=== PATIENT | female | born 1950 | race Caucasian/White ===

== ENCOUNTER → 2022-11-10 | Outpatient (CLI) | payer MEDICARE, SELFPAY ==
--- NOTE | 2022-11-10 13:30 | CT_ITS ---
STUDY: CT RIGHTLOWER EXTREMITY WITHOUT CONTRAST REASON FOR EXAM: Female, 72 years old. OA OF R HIP -- MIN RIGHT HIP RADIATION DOSAGE (If Supplied By Facility): CTDIvol = ( 14.07 ) mGy, DLP = ( 787.14 ) mGycm TECHNIQUE: Thin section transaxial imaging of the ankle was obtained, with sagittal and coronal reconstructed images. Individualized dose optimization techniques were used for this CT. COMPARISON: None. Hip findings: 1. The right hip joint is severely narrowed with xtti-go-[id number] contact and significant subchondral cystic and mixed sclerotic changes on both sides of the articulation. There is also slight remodeling of the proximal aspect of the acetabulum. 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 Normal visualized superior and inferior pubic rami and ischial tuberosities. Patchy sclerosis of the bilateral SI joints with narrowing and intra-articular gas is consistent with inflammatory and degenerative osteoarthritis. Normal superior and inferior pubic rami. There is narrowing of the pubic symphysis with spurring. Normal ischial tuberosity. There is tendinosis of the origins of the hamstring tendons arising from the ischial tuberosity. Rectosigmoid diverticulosis is present. Postsurgical scarring is present in the anterior pelvic wall including numerous calcifications at the scar site. Knee findings: There is moderate to severe narrowing in the medial compartments of both knees. Mild narrowing and cortical osteophyte formation is present in the bilateral lateral compartments of the knee joints. Moderate cortical osteophyte formation is present periphery of the medial compartments of both knees. Tiny knee joint effusions are present. There is no evidence of a fracture. Atherosclerotic calcifications noted. The quadriceps and patellar tendons are grossly intact. Mild subcutaneous edema is present. Moderate to severe degenerative narrowing and related changes seen in the lower lumbar spine. Remodeling of the superior endplate of S1 related to a moderate size Schmorl''s node. CT/Extremity Lower without Contra IMPRESSION: 1. Severe DJD of the right hip and right femoral head avascular necrosis with subchondral collapse Electronically Signed: Sean Ann MD at 9:42 EST ,
== END | disposition home or self-care (01) ==
LOC: CT 12:55
PROVIDERS: PCP Family Medicine; Referring Provider Student in an Organized Health Care Education/Training Program; Visit Provider Student in an Organized Health Care Education/Training Program
DX: M16.11 Unilateral primary osteoarthritis, right hip (principal); M87.051 Idiopathic aseptic necrosis of right femur; K57.90 Diverticulosis of intestine, part unspecified, without perforation or abscess without bleeding; M48.061 Spinal stenosis, lumbar region without neurogenic claudication; M25.469 Effusion, unspecified knee; M21.751 Unequal limb length (acquired), right femur; M25.551 Pain in right hip
CPT/HCPCS: 73700

== ENCOUNTER → 2022-11-13 | Outpatient (CLI) | payer MEDICARE, SELFPAY ==
--- NOTE | 2022-11-13 11:16 | ECHOD_ITS ---
Reason For Study: Murmur, Pre-op right hip surgery Procedure This was a 2D Doppler, Color Flow transthoracic echocardiogram. The study was technically difficult. Exam performed in department. Left Ventricle Normal LV size. Left ventricular systolic function is normal. The estimated ejection fraction is 65 %. Stage 2 diastolic dysfunction. No regional wall motion abnormalities noted. Right Ventricle Normal RV size. Normal systolic function. Atria The left atrium is mildly enlarged. Normal right atrium. No doppler evidence for ASD. Mitral Valve There is no mitral annular calcification. Mild focal mitral valve calcification, bileaflet. The mitral valve chordae are thickened and/or calcified. Mild-Moderate (1-2+) mitral valve insufficiency. Tricuspid Valve Normal tricuspid valve. Trivial tricuspid valve insufficiency. Unable to estimate RV systolic pressure/pulmonary artery pressure due to technically difficult study. Aortic Valve Trisinus/trileaflet aortic valve. Mild diffuse aortic valve calcification. Mild aortic stenosis. Pulmonic Valve The pulmonic valve is not well visualized. Great Vessels Normal sized aortic root. Pericardium/Pleural No pericardial effusion. MMode/2D Measurements & Calculations LVIDd: 4.7 cm IVSd: 1.3 cm LVOT diam: 2.1 cm LVIDs: 2.5 cm LVPWd: 1.3 cm LVOT area: 3.4 cm2 RVDd: 3.3 cm FS: 46.3 % Ao root diam: 3.3 cm LAV(MOD-bp): 72.6 ml LA A4 area: 21.7 cm2 LAV(MOD-bp) Indexed: 35.9 ml/m2 LAV(MOD-sp2): 70.6 ml LAV(MOD-sp4): 62.0 ml LA dimension(2D): 4.6 cm RA A4 area: 10.6 cm2 Time Measurements MV dec time: 0.25 sec Doppler Measurements & Calculations MV E max fermín: 120.3 cm/sec Lat Peak E' Fermín: 6.2 cm/sec Med Peak E' Fermín: 7.8 cm/sec MV A max fermín: 110.9 cm/sec E/E' lat: 19.3 E/E' med: 15.5 MV E/A: 1.1 MV dec slope: 486.0 cm/sec2 Ao V2 max: 231.2 cm/sec LV V1 max: 123.7 cm/sec Ao max P.5 mmHg LV V1 max P.1 mmHg Ao V2 mean: 162.5 cm/sec LV V1 mean P.5 mmHg Ao mean P.7 mmHg LV V1 mean: 88.6 cm/sec Ao V2 VTI: 55.7 cm LV V1 VTI: 31.7 cm AV (velocity ratio): 0.57 SUNIL(I,D): 1.9 cm2 SUNIL(V,D): 1.8 cm2 SV(LVOT): 106.9 ml PA V2 max: 121.4 cm/sec ECHO/Echo Complete Interpretation Summary The study was technically difficult. Left ventricular systolic function is normal. The estimated ejection fraction is 65 %. The left atrium is mildly enlarged. Mild focal mitral valve calcification, bileaflet. The mitral valve chordae are thickened and/or calcified. Mild-Moderate (1-2+) mitral valve insufficiency. Trivial tricuspid valve insufficiency. Mild aortic stenosis. Unable to estimate RV systolic pressure/pulmonary artery pressure due to techni faraz difficult study. Stage 2 diastolic dysfunction. Ordering Physician: Jad Simon Referring Physician: Jad Simon Performed By: Gaye Rodgers RDCS
== END | disposition home or self-care (01) ==
LOC: CVS 10:51
PROVIDERS: PCP Family Medicine; Referring Provider Family Medicine; Visit Provider Family Medicine
DX: R01.1 Cardiac murmur, unspecified (principal); I50.30 Unspecified diastolic (congestive) heart failure; I34.0 Nonrheumatic mitral (valve) insufficiency; I07.1 Rheumatic tricuspid insufficiency; I35.0 Nonrheumatic aortic (valve) stenosis
CPT/HCPCS: 93306

== ENCOUNTER 2022-11-19 14:56 | Observation (INO) | payer MEDICARE, SELFPAY ==
[2022-11-10 15:00] LABS: Absolute Lymphocyte Count 1.37 X10^3/uL (0.83-4.51); Absolute Neutrophil Count 7.6 X10^3/uL (2.0-7.7); Basophil# 0.03 X10^3/uL; Basophil% 0.3 % (0-1); Eosinophil# 0.11 X10^3/uL; Eosinophils% 1.1 % (0-5); Hematocrit 39.6 % (37-47); Lymphocyte # 1.37 X10^3/ul (0.83-4.51); Lymphocyte % 14.2 % (19-41); Mean Corp Hgb Conc 30.3 g/dL (32-36); Mean Corpuscular Hgb 28.6 pg (27.0-32.0); Mean Corpuscular Volume 94.3 fL (81-99); Mean Platelet Vol. 9.1 fl (6.2-12.0); Monocyte# 0.53 X10^3/uL; Monocyte% 5.5 % (0-10); NRBC Flagged by Analyzer 0 % (0-5); Neutrophil # 7.61 X10^3/uL (2.7-7.7); Neutrophil % 78.6 % (47-70); Platelet Count 325 K/mm3 (150-450); RBC Distribution Width CV 13.8 % (11.6-14.6); RBC Distribution Width SD 47.3 fl (35.1-43.9); White Blood Count 9.7 K/mm3 (4.4-11.0)
[2022-11-10 15:46] LABS: Anion Gap 5 (5-15); BUN 23 mg/dL (7-18); Calcium,Total 9.3 mg/dL (8.5-10.1); Chloride 107 mmol/L (98-107); EST Glomerular Filtration Rate 58 mL/min (>60); Est Glom Filt Rate - Afr Amer 70 mL/min (>60); Glucose 150 mg/dL (74-106); Sodium Level 140 mmol/L (136-145)
[2022-11-10 16:02] LABS: Magnesium 1.8 mg/dL (1.6-2.6); Thyroid Stim Hormone (TSH) 1.63 uIU/mL (0.358-3.74)
[2022-11-10 16:11] LABS: Hemoglobin A1c 6.9 % (3.8-5.6)
[2022-11-19] VITALS (13 sets, daily range): BP systolic 115–168; BP diastolic 48–69; PULSE 59–85; RESP 9–18; TEMP 36–36.8; O2SAT 95–100; BMI 45.5
--- NOTE | 2022-11-19 | HIP_PTH ---
PATIENT: MISAEL MEDINA LOC: MS3 U#:[id number] AGE/SX: 72/F ROOM: [facility] [place] RE11/19/[address]: Dr. Milton Love DO : 1950 BED: 1 DIS: 11/20/2022 SPEC #: [id number] RECD: 11/19/22 15:35 STATUS: BHUPENDRA REQ #: [id number] EZIO: 11/19/22 00:[address]: Milton Love DEPT: SURGICAL PATHOLOGY RECD BY: Jorge De La Vega ENTERED: 11/20/22 10:35 SP TYPE: TOTAL HIP OTHR DR: MD Dr. Anai Medina DO Tissues: Hip, NOS Procedures: Decalcification bone/plaque Surgery Specimen Level IV HEADER OPERATION: ERAS, total hip replacement robotic arm assist PRE-OP DIAGNOSIS: Grade IV osteoarthritis TISSUE SUBMITTED: Bone right hip MICROSCOPIC DIAGNOSIS Bone and tissue of right hip, total hip resection: Severe degenerative joint disease. AM:ирина 11/25/2022 MICROSCOPIC DESCRIPTION Slides are reviewed. GROSS DESCRIPTION Received is one container labeled with the patient's name and designated bone of right hip. The specimen consists of a deformed femoral head measuring 5 x 4.5 x 4 cm. The articular surface displays prominent osteophyte formation, eburnation and bone erosion. Also present in the specimen container are multiple irregular fragments of bone reamings, soft tissue and bone fragments aggregating to 9 x 7 x 2 cm. Data Security Coordinator sections are submitted in two cassettes as follows: 1 - soft tissue and bone reamings, 2 - bone after decalcification. / AM:ирина 11/20/2022 TC:5 CPT: 43838, 72452
[2022-11-19] MEDS: Magnesium 2 GM for ERAS IV (10:05)
[2022-11-19] MEDS: Lactated Ringers 1,000 ML 999 ML IV ×2 (10:05→15:26)
[2022-11-19] MEDS: Celecoxib 200 MG Capsule 400 MG PO (10:13)
[2022-11-19] MEDS: Gabapentin 600 MG Tablet PO (10:13)
[2022-11-19] MEDS: Acetaminophen 500 MG Tablet 1000 MG PO ×2 (10:13→21:48)
[2022-11-19 11:10] LABS: Bedside Glucose 198 mg/dL (74-106)
[2022-11-19] MEDS: Cefazolin 2 GM in 0.9% Normal Saline 100 ML IV (12:13)
[2022-11-19] MEDS: TXA 1000mg in NS100 100ml (IVPB at Incision) 660 MG IV (12:20)
[2022-11-19] MEDS: dexAMETHasone 10 MG/ML Vial IV (12:20)
[2022-11-19] MEDS: TXA 1000mg in NS100 100ml (IVPB at Closure) 660 MG IV (14:14)
[2022-11-19] MEDS: Lactated Ringers 1,000 ML 125 ML IV ×2 (14:50→16:30)
--- NOTE | 2022-11-19 15:21 | PCM.PN.HOSP ---
Subjective Subjective Noreen Chicas is a 72-year-old white female who presented to [facility] on 11/19/2022 for an elective right total hip replacement. Patient had evidently had some pain in his hip for approximately 6 years and had been progressively worsening. She was having pain in her groin and into her right quad reporting increased pain with ambulating. She has required the use of a wheelchair and reported that if she stands she feels a popping sensation in her hip. She is had multiple conservative interventions including chiropractic therapy and physical therapy both of which were not helpful. We have been consulted postoperatively for medical management Patient was seen up on the medical floor after returning there from PACU. Patient is feeling well sitting up in a bedside commode getting ready to get back to the bed. Ate dinner in PACU. Denies any pain at this time. Was surprised how well she did getting to the bedside commode. Hoping to be able to go home tomorrow as currently planned. Objective Data Objective Data Vital Signs: Vital Signs Temp Pulse Resp BP Pulse Ox O2 Del Method 98.3 F 79 16 115/58 L 95 Room Air 11/19/22 15:04 11/19/22 15:04 11/19/22 15:04 11/19/22 15:04 11/19/22 15:04 11/19/22 15:04 Oxygen Delivery Method Room Air Weight: 109.3 kg Body Mass Index (BMI) 45.5 Intake & Output: Intake and Output for Last 24 Hours 11/17/22 11/18/22 11/19/22 23:59 23:59 23:59 Intake Total 1434 / 1434 Balance 1434 / 1434 Lab / Micro Data Result Diagrams: 11/10/22 13:44 11/10/22 13:44 Labs: Laboratory Results - last 24 hr 11/19/22 09:55: POC Glucose 198 H Micro: Microbiology 11/10/22 13:44 Swab (Method) Nasal Screen MRSA/MSSA - Final Physical Exam Const alert, oriented x3 and no apparent distress Constitutional Narrative: Morbidly obese, white female, sitting up in a bedside commode, at bedside, patient appears comfortable nontoxic, getting ready to get back to bed Resp normal respiratory effort, no retractions, no use of accessory muscles and clear to auscultation bilaterally Auscultation: Negative for crackles, rhonchi or wheezes Cardio regular rate, regular rhythm, S1 normal heart sound, S2 normal heart sound, no rub, no gallops and no clicks; Negative for no murmurs Cardio Narrative: 2 out of 6 systolic murmur loudest at right upper sternal border GI normal to inspection, nondistended, normoactive bowel sounds, soft to palpation and non-tender Extremity no clubbing, cyanosis or edema Extremity Narrative: Postoperative dressing noted is peeling off proximally and laterally-nursing aware and plans to redress, no ecchymosis or significant swelling noted at this time, pedal pulses are 2+ Neuro oriented x3, CN's II-XII intact bilaterally and no focal motor deficits Speech: speech normal Psych affect normal Psych Narrative: Very pleasant and appropriately interactive Assessment & Plan Assessment/Plan (1) Osteoarthritis of right hip: PLAN: Plan Osteoarthritis of the right hip -Postop day 0 total hip arthroplasty -Management per primary service -Pain medication as ordered -Recommend bowel regimen -Weightbearing as tolerated -Silver dressing for 5 days postoperatively -PT/OT consultation DM-2 -Most recent hemoglobin A1c was 6.9 -Hold home oral agents while hospitalized including glipizide, metformin, Actos -Moderate high-dose sliding scale -Accu-Cheks 3 times daily with meals -Restart oral medications upon discharge Hyperlipidemia -Continue home atorvastatin Hypertension -Continue home BRETT inhibitor with therapeutic substitution -Continue home amlodipine 10 mg daily Morbid obesity -BMI is 45.5 -Recommend weight loss -Complicates treatment, prognosis, outcomes Stage II diastolic dysfunction -Noted on most recent echo performed on 11/13/2022 -Blood pressure control Mild aortic stenosis -No current concerns -Mild murmur noted on exam -Recommend continued outpatient follow-up DVT prophylaxis -Per primary service Thank you for this postoperative consultation. Patient appears to be clinically stable in the postoperative period and we will sign off at this time. Please not hesitate to contact us or reconsult if there are any concerns or questions that develop. Charges/Coding Visit Charges Inpatient E&M: 07348 Subs Hosp L2
--- NOTE | 2022-11-19 15:35 | RAD_ITS ---
EXAM: XR RIGHT HIP WITH PELVIS WHEN PERFORMED, 2 OR 3 VIEWS CLINICAL INDICATION: Post Op -- AP both hips on single elba/lateral of op hip PACU TECHNIQUE: Two or three views of the right hip with pelvis when performed. This report was created using [employer] report generation technology. COMPARISON: None. FINDINGS: BONES/JOINTS: There is a total right hip prosthesis in anatomic alignment. There is no evidence of loosening. No displaced fracture. No destructive or sclerotic lesions. Note that overlapping bowel shadows may however obscure fine detail. Sacroiliac joint is unremarkable. No widening of the pubic symphysis. SOFT TISSUES: Unremarkable. No soft tissue swelling or gas. RAD/Hip Min 2 Views (Portable) IMPRESSION: Right hip prosthesis in anatomic alignment. There are no acute osseous abnormalities. Electronically Signed: Fausto Esquivel MD at 16:55 EST ,
--- NOTE | 2022-11-19 16:06 | OP.PCM_ITS ---
Report of Operation Date of Procedure: 11/19/22 Description of Surgical Findings:: Preoperative diagnosis: Right hip primary osteoarthritis Postoperative diagnosis: Right hip primary osteoarthritis Procedure: Robotic assisted right total hip arthroplasty Surgeon: Milton Love DO Financial Legal Assistant: CELIA Osei Anesthesia: Spinal with sedation Market Maker: Ho Stewart CRNA Complications: None apparent Drains: None Estimated blood loss: 250 cc Urinary output: none recorded IV fluids: 1800 cc crystalloid Specimens: Femoral head resection Surgical implants: Fostoria Accolade two 132 degree neck angle hip stem size #4, Biolox delta ceramic V 40 femoral head 36 mm outer diameter +7.5 mm neck length, Fostoria Trident X3 10 degree polyethylene insert, Trident 2 TriTanium cluster hole acetabular shell 52 mm diameter Indications: This is an 72-year-old female seen in the outpatient setting for right hip pain. X-rays revealed severe right hip osteoarthritis. She failed oral [id number]-[id number] analgesics including NSAIDs and Tylenol, activity modification. She was becoming increasingly less ambulatory requiring a wheelchair. I recommended surgical intervention the form of right total hip arthroplasty. I reviewed the procedure with the patient, its risk, benefits, alternatives. Risks included but were not limited to bleeding, infection, loss of life or limb, risk of anesthesia, neurovascular injury, persistent pain, instability, need for additional surgery, failure of orthopedic hardware, loosening, osteolysis, need for assistive devices long-term, leg length discrepancy. Patient expressed understanding wish to proceed with surgery. Description of procedure: I greeted the patient in same-day surgery holding area the day of surgery. She was identified by name, medical record number, and date of . All questions were answered to patient satisfaction. The operative extremity was marked with a surgical marker. Informed consent was confirmed with the patient. At time of her procedure, patient brought the operative suite and positioned in the seated position for a spinal anesthetic. After achieving spinal anesthesia, patient was then positioned supine on a standard operating table. Gentle MAC anesthesia was administered. Patient was then positioned in a lateral decubitus position with the right side up. An axillary roll was placed under the patient's left axilla. The left fibular head was free. We then prepped and draped the right lower extremity in normal, sterile orthopedic fashion. Prior to the procedure, the Mateusz plan was reviewed and appeared appropriate based on the patient's CT scan and anatomy. We performed a timeout with all parties in attendance in agreement with the side, site, and operation to be performed. No concerns were voiced and would like to proceed. 1 g TXA IV as well as 2 g Ancef was administered prior to the incision by anesthesia staff. 1 g TXA IV was administered at time of closure additionally. I first elected to place our pelvic array with a curvilinear incision over the iliac crest just posterior to the ASIS. I bluntly dissected down the level of the periosteum. I then drilled 3 intracortical pins with excellent cortical purchase. Pelvic array was then assembled and positioned appropriately. I then turned my attention to the hip. A standard posterior lateral incision was made curvilinear over the posterior lateral hip, centered on the tip of the greater trochanter. Full-thickness skin incision was made, approximately 15 cm in length. I sharply dissected down the level of the fascia melchor. Fascia melchor was then incised in line with the incision. I bluntly dissected through the raphae of the gluteus jack. Femoral checkpoint was placed at this point. We then registered her femoral anatomy prior to dislocating the hip. I then internally rotated the hip. Limited gluteal bursectomy was performed to identify the short external rotators. A Cobra retractor was placed in his gluteus medius. Short external rotators were taken down with Bovie cautery and tagged for later repair with #2 Ethibond suture. This identified the underlying capsule. A L-shaped shaped capsulotomy was made over the femoral neck carried posteriorly to the acetabular labrum. Labrum was released and the hip was dislocated. I then marked a standard femoral neck cut 1 fingerbreadth above the lesser trochanter. Sagittal saw was used to carefully cut the femoral neck. Femoral head was removed and examined and appeared benign. It was sent to pathology per hospital policy. I then turned my attention to the acetabulum. Cobra retractors were placed anterior and posteriorly. Self-retaining retractor was placed superiorly. Acetabular labrum was excised with a long handled knife. Acetabular pulvinar was excised with Bovie cautery. Hemostasis was excellent at this point. I then registered the acetabulum with the [employer] robot successfully. I medialized with a 46 mm reamer. I then brought in the Mateusz robot with the acetabular reaming arm to a size 52. This was reamed and the planned position to the planned depth. Reamer was then removed. There was excellent bleeding bone at the base and excellent remaining anterior posterior ochoa of the acetabulum. 52 mm acetabular component was selected for and attached to the bolt cutter arm of the robot. I placed the acetabular component near planned position before attaching to the robot. The robot then held the cuff in position while I impacted it to an appropriate depth. The acetabular cup was then removed from the robotic arm. It had excellent rim fit. I then selected a 10 degree posterior lipped liner and impacted this per overhead crane operator recommendations. I then turned my attention to the femur. Box chisel was then utilized to gain access to the femoral canal. Canal finder was placed. Sequential broaches were used and press-fit manner. A final size 4 achieved excellent vertical and rotational stability. We then trialed with a 132 degree hip stem as templated. A +5 and +7.5 mm neck length were trialed. The +7. 5 mm neck achieved greater stability as well as allowed some lengthening of the limb, which was desired given her contralateral hip osteoarthritis. Trials were then removed. We copiously irrigated the wound with normal saline solution, Betadine solution, and irrisept solution. A size 4 stem was then impacted with excellent fixation. Final head was then impacted over clean, dry Carrillo taper neck. Final reduction was performed. A posterior capsular repair was performed with #2 Ethibond suture and bone tunnels, as well as the short external rotator repair. Femoral checkpoint was removed. Pelvic array pins were removed. IT band was closed watertight with #1 strata fix suture. Deeper fascial layers were closed with #1 and 0 Vicryl suture in interrupted fashion. Subcutaneous layers were reapproximated with 2-0 Vicryl suture and skin reapproximated with running subcuticular 3-0 strata fix and skin glue. Pelvic array incision was closed with buried 2-0 Vicryl suture and skin glue.. A silver dressing was applied. Patient tolerated procedure well without complication. She was positioned back in the supine position on his hospital bed. He was transferred to PACU in stable condition. A pillow was placed between the patient's leg to be present while she is in bed. Post Operative Plan: Patient will be placed in observation overnight given her multiple comorbidities and advanced age. Plan for discharge to home likely tomorrow. Weightbearing: Weightbearing as tolerated right lower extremity, posterior hip precautions. Pillows between legs while in bed Antibiotics: Ancef 1 g every 8 hours x 3 doses DVT Prophylaxis: Aspirin 81 mg twice daily to start tomorrow [place]wood: None Dressing: Maintain silver dressing x 5 days X-Rays: PACU x-rays were reviewed demonstrated well-positioned right total hip arthroplasty implant. Follow-up 2-week x-rays in the office. Follow-up: 2 weeks in my office as scheduled
[2022-11-19] MEDS: Insulin Lispro 100 UNIT/ML INSULN.PEN SC (16:31)
[2022-11-19 16:40] LABS: Bedside Glucose 185 mg/dL (74-106)
--- NOTE | 2022-11-19 19:00 | NURSING ---
Emergency Documentation
[2022-11-19 19:51] LABS: Bedside Glucose 264 mg/dL (74-106)
[2022-11-19] MEDS: Cefazolin 1 GM/50 ML BAG IV (21:47)
[2022-11-19] MEDS: Atorvastatin Calcium 10 MG Tablet PO (21:48)
[2022-11-19] MEDS: Senna/Docusate Sodium 1 Tablet 2 TABLET PO (21:49)
[2022-11-20 05:00] VITALS: BP 159/63; PULSE 70; RESP 18; TEMP 36.6; O2SAT 95
[2022-11-20] MEDS: Cefazolin 1 GM/50 ML BAG IV (05:02)
[2022-11-20] MEDS: Acetaminophen 500 MG Tablet 1000 MG PO ×2 (05:03→13:40)
[2022-11-20] MEDS: Levothyroxine 100 MCG Tablet PO (05:03)
[2022-11-20 06:02] LABS: Hematocrit 30.4 % (37-47); Hemoglobin 9.8 g/dL (12.0-15.0); Mean Corp Hgb Conc 32.2 g/dL (32-36); Mean Platelet Vol. 8.6 fl (6.2-12.0); Platelet Count 266 K/mm3 (150-450); RBC Distribution Width CV 13.3 % (11.6-14.6); RBC Distribution Width SD 45.5 fl (35.1-43.9); Red Blood Count 3.27 M/mm3 (4.2-5.4); White Blood Count 13.4 K/mm3 (4.4-11.0)
[2022-11-20 06:45] LABS: Anion Gap 6 (5-15); BUN 19 mg/dL (7-18); BUN/Creat Ratio 16.7 RATIO (10-20); Calcium,Total 8.7 mg/dL (8.5-10.1); Chloride 106 mmol/L (98-107); Creatinine, Serum 1.14 mg/dL (0.55-1.02); EST Glomerular Filtration Rate 50 mL/min (>60); Est Glom Filt Rate - Afr Amer 60 mL/min (>60); Estimated Creatinine Clearance 33.66 ml/min; Glucose 251 mg/dL (74-106); Potassium 4.5 mmol/L (3.5-5.1); Sodium Level 137 mmol/L (136-145)
[2022-11-20] MEDS: Insulin Lispro 100 UNIT/ML INSULN.PEN SC ×2 (06:56→11:13)
[2022-11-20 07:30] LABS: Bedside Glucose 192 mg/dL (74-106)
[2022-11-20 07:37] VITALS: O2SAT 95
[2022-11-20] MEDS: Aspirin 81 MG TAB.CHEW PO (08:14)
[2022-11-20 08:19] VITALS: BP 143/74; PULSE 70; RESP 16; TEMP 36.9; O2SAT 100
[2022-11-20] MEDS: Senna/Docusate Sodium 1 Tablet 2 TABLET PO (09:36)
[2022-11-20] MEDS: Lisinopril 40 MG Tablet PO (09:36)
[2022-11-20] MEDS: Famotidine 20 MG Tablet PO (09:36)
[2022-11-20] MEDS: amLODIPine 10 MG Tablet PO (09:36)
--- NOTE | 2022-11-20 11:02 | CASEMGMT ---
SHON DILL Assessment: Face to Face with pt for initial transition planning/care coordination assessment. RN ANIYAH introduced self and role at [facility], pt voices understanding and consents to assessment. Pt is A/O x4 and answers all questions appropriately at this time. Pt sitting up in chair in no distress. Care providers, pharmacy, and demographics verified/updated. Admitting Dx: R total hip with armando PCP:[facility] Specialists:dewey Love Pharmacy: [facility] Insurance: [facility] Prescription Benefit: yes LNOK: Kd Pool, Living Arrangements: Pt lives with in a single story house with 3 steps to enter with a rail on both sides. Pt reports she is I in ADL's typically and denies concerns at home. Transportation: Pt has been transporting pt for the last 3 weeks and will continue until she can drive again. DME/HHC/SNF: Pt has a cane, crutches, FWW, w/c, walk in shower and shower chair at home. Pt denies hx of HHC or SNF stays. Pt states no concerns with going home at time of dc. She has outpt therapy set up at [facility] on Wednesday. Pt states no further concerns/needs. CM to follow. Advised pt to ask CM if any further question/concerns/needs arise, voices understanding. Pt Goal: Home with outpt therapy set up Plan: Home with outpt therapy set up
[2022-11-20 11:20] LABS: Bedside Glucose 247 mg/dL (74-106)
--- NOTE | 2022-11-20 12:35 | DCINST_ITS ---
Discharge Instructions Follow Up Care Test Results: Test results from this visit will be discussed in further detail at your follow- up appointment, if applicable. Discharge Plan Admission Admit Date/Time: 11/19/22 14:56 Primary Reason for Your Visit: Right hip replacement Attending Provider: Milton Love Primary Care Provider: Jad Simon Consulting Providers: Anai Nixon Instructions Additional Instructions / Restrictions: See preprinted instructions from your surgeons office. Discharge Orders/Prescriptions Prescriptions: No Action metformin 500 mg tablet extended release 24 hr 500 mg PO BID pioglitazone 30 mg tablet 30 mg PO DAILY quinapril 40 mg tablet 40 mg PO DAILY amlodipine 10 mg tablet 10 mg PO DAILY levothyroxine [Synthroid] 100 mcg tablet 100 mcg PO DAILY atorvastatin 10 mg tablet 10 mg PO QHS glipizide 2.5 mg tablet extended release 24hr 2.5 mg PO DAILY Referrals / Follow Up: Jad Simon MD [Primary Care Provider] - Milton Love DO [Med Staff - Active Staff] - Disposition Disposition (needs filled in before D/C Order can be placed): Home, Self Care
--- NOTE | 2022-11-20 12:35 | PCM.DC.SUM ---
Providers Date of Admission: 11/19/22 Primary Care Physician: Dr. Jad Simon MD Consultations 11/19/22 14:50 Consult: Hospitalist Routine Consulting Provider: Anai Nixon Reason for Consult: Post op right total hip medical management EMERGENT Consult: No MD Notified: Yes Date Notified: 11/19/22 Time Notified: 14:53 Method of Notification: Text Reason For Visit: RT TOTAL HIP W MIN Diagnosis Discharge Diagnosis (1) Osteoarthritis of right hip: Status: Acute Code(s): M16.11 - Unilateral primary osteoarthritis, right hip Plan: POD#1 s/p right total hip arthroplasty - Pain control - Medicine following for medical management - PT/OT - DVT PPX -aspirin 81 mg twice daily, TRENT Shine, early mobilization Plan for discharge home today with outpatient physical therapy follow-up. Medications at Discharge Home Medications amlodipine 10 mg tablet 10 mg PO DAILY 08/31/22 atorvastatin 10 mg tablet 10 mg PO QHS 08/31/22 glipizide 2.5 mg tablet, extended release 24 hr 2.5 mg PO DAILY 08/31/22 levothyroxine 100 mcg tablet (Synthroid) 100 mcg PO DAILY 08/31/22 metformin 500 mg tablet,extended release 24 hr 500 mg PO BID 08/31/22 pioglitazone 30 mg tablet 30 mg PO DAILY 08/31/22 quinapril 40 mg tablet 40 mg PO DAILY 08/31/22 acetaminophen 500 mg tablet 1,000 mg PO Q8 30 days #180 tabs 11/20/22 aspirin 81 mg chewable tablet 81 mg PO BIDCM 28 days #56 tabs 11/20/22 famotidine 20 mg tablet 20 mg PO DAILY 30 days #30 tabs 11/20/22 meloxicam 7.5 mg tablet 7.5 mg PO BID 30 days #60 tabs 11/20/22 oxycodone 5 mg tablet 5 - 10 mg PO Q4H PRN PRN Pain Score 4-10 7 days #42 tabs 11/20/22 sennosides 8.6 mg-docusate sodium 50 mg tablet (Stool Softener-Stimulant Laxative) 2 tab PO BID 7 days #28 tabs 11/20/22 Hospital Course Summary of Care Provided Minutes Spent on Discharge: 15 Hospital Course: Patient underwent uncomplicated right total hip arthroplasty 11/19/2022. She was placed in observation overnight for early convalescence and medical monitoring. A hospitalist consult was placed. Patient did well in the postoperative period. Physical occupational therapies were ordered. She did well with her therapies and was able to be safely discharged to home on postoperative day #1. No medical or surgical complications were encountered throughout her stay. Physical Exam Narrative General - A&Ox3, NAD. VSS/AF right lower extremity -incisional dressing C/D/I. SILT Sural, Saphenous, SPN, DPN, Tibial N. distributions. DP, PT 2+. BCR. DF, PF, EHL 5/5. No calf TTP. Weight / BMI Weight Weight: 240 lb 15.444 oz Body Mass Index (BMI) 45.5 ABG / Lab / Microbiology Data Result Diagrams: 11/20/22 05:44 11/20/22 05:44 Laboratory: Laboratory Results - last 24 hr 11/19/22 16:19: POC Glucose 185 H 11/19/22 19:30: POC Glucose 264 H 11/20/22 05:44: WBC 13.4 H, RBC 3.27 L, Hgb 9.8 L, Hct 30.4 L, MCV 93.0, MCH 30.0, MCHC 32.2, RDW Std Deviation 45.5 H, RDW Coeff of Leif 13.3, Plt Count 266, MPV 8.6 11/20/22 05:44: Sodium 137, Potassium 4.5, Chloride 106, Carbon Dioxide 25.0, Anion Gap 6, BUN 19 H, Creatinine 1.14 H, Estim Creat Clear Calc 33.66, Est GFR (MDRD) Af Amer 60, Est GFR (MDRD) Non-Af 50 L, BUN/Creatinine Ratio 16.7, Glucose 251 H, Calcium 8.7 11/20/22 06:53: POC Glucose 192 H 11/20/22 10:59: POC Glucose 247 H Microbiology: Microbiology 11/10/22 13:44 Swab (Method) Nasal Screen MRSA/MSSA - Final Radiography Diagnostic Testing: Radiology Impression Hip X-Ray 11/19/22 15:35 IMPRESSION: Right hip prosthesis in anatomic alignment. There are no acute osseous abnormalities. Electronically Signed: Fausto Esquivel MD at 16:55 EST , Meaningful Use Info Meaningful Use Diagnoses (Choose all that apply): None applicable Discharge Plan Admission Admit Date/Time: 11/19/22 14:56 Primary Reason for Your Visit: Right hip replacement Attending Provider: Milton Love Primary Care Provider: Jad Simon Consulting Providers: Anai Nixon Instructions Additional Instructions / Restrictions: See preprinted instructions from your surgeons office. Discharge Orders/Prescriptions Prescriptions: New sennosides-docusate sodium [Stool Softener-Stimulant Laxat] 8.6-50 mg Tablet 2 tab PO BID 7 Days Qty: 28 0RF acetaminophen 500 mg Tablet 1,000 mg PO Q8 30 Days Qty: 180 0RF meloxicam 7.5 mg Tablet 7.5 mg PO BID 30 Days Qty: 60 0RF famotidine 20 mg Tablet 20 mg PO DAILY 30 Days Qty: 30 0RF aspirin 81 mg Tablet,Chewable 81 mg PO BIDCM 28 Days Qty: 56 0RF oxycodone 5 mg Tablet 5 - 10 mg PO Q4H PRN PRN (Reason: Pain Score 4-10) 7 Days Qty: 42 0RF Continued metformin 500 mg tablet extended release 24 hr 500 mg PO BID pioglitazone 30 mg tablet 30 mg PO DAILY quinapril 40 mg tablet 40 mg PO DAILY amlodipine 10 mg tablet 10 mg PO DAILY levothyroxine [Synthroid] 100 mcg tablet 100 mcg PO DAILY atorvastatin 10 mg tablet 10 mg PO QHS glipizide 2.5 mg tablet extended release 24hr 2.5 mg PO DAILY Referrals / Follow Up: Jad Simon MD [Primary Care Provider] - Miltno Love DO [Med Staff - Active Staff] - Disposition Disposition (needs filled in before D/C Order can be placed): Home, Self Care
[2022-11-20 12:57] VITALS: BP 128/50; PULSE 74; RESP 16; TEMP 36.7; O2SAT 97
== END 2022-11-20 14:37 | disposition home or self-care (01) ==
LOC: SDC 17:22 → MS3 17:22
PROVIDERS: Anesthesiology; Admitting Provider Student in an Organized Health Care Education/Training Program; PCP Family Medicine; Referring Provider Student in an Organized Health Care Education/Training Program; Visit Provider Student in an Organized Health Care Education/Training Program
PROC: 8E0Y0CZ Robotic Assisted Procedure of Lower Extremity, Open Approach (ICD-10-PCS; CPT 27130; principal; 2022-11-19 11:30)
DX: M16.11 Unilateral primary osteoarthritis, right hip (principal); E11.9 Type 2 diabetes mellitus without complications; E78.00 Pure hypercholesterolemia, unspecified; E07.9 Disorder of thyroid, unspecified; I10 Essential (primary) hypertension; Z79.899 Other long term (current) drug therapy; Z79.890 Hormone replacement therapy
CPT/HCPCS: 27130; 01214; S2900; 36415; 73502; 80048; 82962; 83036; 83735; 84443; 85025; 85027; 87077; 87081; 88305; 88311; 93005; 96361; 96365; 96366; 97162; 99221; 99252; C1776; J7120; G0378; G0463; J2405

== ENCOUNTER → 2023-12-31 | Outpatient (CLI) | payer MEDICARE, SELFPAY ==
[2023-12-31 12:15] LABS: Absolute Lymphocyte Count 1.84 X10^3/uL (0.83-4.51); Basophil# 0.03 X10^3/uL; Basophil% 0.3 % (0-1); Eosinophil# 0.17 X10^3/uL; Hematocrit 39.8 % (37-47); Hemoglobin 12.5 g/dL (12.0-15.0); Lymphocyte # 1.84 X10^3/ul (0.83-4.51); Lymphocyte % 21.2 % (19-41); Mean Corp Hgb Conc 31.4 g/dL (32-36); Mean Corpuscular Hgb 28.7 pg (27.0-32.0); Mean Corpuscular Volume 91.5 fL (81-99); Mean Platelet Vol. 9.3 fl (6.2-12.0); Monocyte# 0.66 X10^3/uL; Monocyte% 7.6 % (0-10); NRBC Flagged by Analyzer 0 % (0-5); Neutrophil # 5.96 X10^3/uL (2.7-7.7); Neutrophil % 68.6 % (47-70); Platelet Count 334 K/mm3 (150-450); RBC Distribution Width CV 14.3 % (11.6-14.6); RBC Distribution Width SD 48.5 fl (35.1-43.9); Red Blood Count 4.35 M/mm3 (4.2-5.4); White Blood Count 8.7 K/mm3 (4.4-11.0)
[2023-12-31 12:41] LABS: Vitamin D,25 Hydroxy 48.4 ng/mL
[2023-12-31 12:59] LABS: ALB/GLOB Ratio 0.9 RATIO (0.9-2.4); AST(SGOT) 21 U/L (15-37); Alanine Aminotransfer ALT/SGPT 22 U/L (13-56); Albumin, Serum 3.4 g/dL (3.2-5.0); Alkaline Phosphatase 101 U/L (45-117); Anion Gap 3 (5-15); BUN 21 mg/dL (7-18); BUN/Creat Ratio 19.4 RATIO (10-20); Calcium,Total 8.9 mg/dL (8.5-10.1); Chloride 109 mmol/L (98-107); Cholesterol 165 mg/dL (200); Creatinine, Serum 1.08 mg/dL (0.55-1.02); EST Glomerular Filtration Rate 53 mL/min (>60); Est Glom Filt Rate - Afr Amer 64 mL/min (>60); Globulin 3.8 g/dL (2.2-4.2); Glucose 125 mg/dL (74-106); High Density Lipoprotein 64 mg/dL; Potassium 4.3 mmol/L (3.5-5.1); Protein, Total 7.2 g/dL (6.4-8.2); Sodium Level 140 mmol/L (136-145); Thyroid Stim Hormone (TSH) 2.26 uIU/mL (0.358-3.74); Triglycerides 146 mg/dL; Very Low Density Lipoprotein 29 mg/dL (5-40)
[2023-12-31 13:03] LABS: Hemoglobin A1c 7.1 % (3.8-5.6)
== END | disposition home or self-care (01) ==
LOC: MFPLAB 10:13
PROVIDERS: PCP Family Medicine; Visit Provider Family Medicine
DX: E03.9 Hypothyroidism, unspecified (principal); E11.9 Type 2 diabetes mellitus without complications; E55.9 Vitamin D deficiency, unspecified; I10 Essential (primary) hypertension
CPT/HCPCS: 36415; 80053; 80061; 82306; 83036; 84443; 85025

== ENCOUNTER → 2024-06-28 | Outpatient (CLI) | payer MEDICARE, SELFPAY ==
[2024-06-28 12:23] LABS: Absolute Lymphocyte Count 1.82 X10^3/uL (0.83-4.51); Absolute Neutrophil Count 5.2 X10^3/uL (2.0-7.7); Basophil# 0.03 X10^3/uL; Basophil% 0.4 % (0-1); Eosinophils% 2.5 % (0-5); Hematocrit 39.6 % (37-47); Hemoglobin 12.6 g/dL (12.0-15.0); Lymphocyte # 1.82 X10^3/ul (0.83-4.51); Lymphocyte % 23.2 % (19-41); Mean Corp Hgb Conc 31.8 g/dL (32-36); Mean Corpuscular Hgb 29.5 pg (27.0-32.0); Mean Corpuscular Volume 92.7 fL (81-99); Mean Platelet Vol. 9.4 fl (6.2-12.0); Monocyte# 0.57 X10^3/uL; Monocyte% 7.3 % (0-10); NRBC Flagged by Analyzer 0 % (0-5); Neutrophil # 5.22 X10^3/uL (2.7-7.7); Neutrophil % 66.3 % (47-70); Platelet Count 315 K/mm3 (150-450); RBC Distribution Width CV 13.2 % (11.6-14.6); RBC Distribution Width SD 44.5 fl (35.1-43.9); Red Blood Count 4.27 M/mm3 (4.2-5.4); White Blood Count 7.9 K/mm3 (4.4-11.0)
[2024-06-28 12:38] LABS: ALB/GLOB Ratio 0.8 RATIO (0.9-2.4); AST(SGOT) 22 U/L (15-37); Alanine Aminotransfer ALT/SGPT 19 U/L (13-56); Albumin, Serum 3.3 g/dL (3.2-5.0); Alkaline Phosphatase 103 U/L (45-117); Anion Gap 7 (5-15); BUN 25 mg/dL (7-18); BUN/Creat Ratio 22.1 RATIO (10-20); Calcium,Total 9.3 mg/dL (8.5-10.1); Chloride 108 mmol/L (98-107); Cholesterol 145 mg/dL (200); Creatinine, Serum 1.13 mg/dL (0.55-1.02); EST Glomerular Filtration Rate 50 mL/min (>60); Est Glom Filt Rate - Afr Amer 61 mL/min (>60); Globulin 4.2 g/dL (2.2-4.2); Glucose 121 mg/dL (74-106); High Density Lipoprotein 60 mg/dL; Potassium 4.6 mmol/L (3.5-5.1); Protein, Total 7.5 g/dL (6.4-8.2); Sodium Level 140 mmol/L (136-145); Triglycerides 134 mg/dL; Very Low Density Lipoprotein 27 mg/dL (5-40)
[2024-06-28 13:26] LABS: Hemoglobin A1c 6.9 % (3.8-5.6)
== END | disposition home or self-care (01) ==
LOC: MFPLAB 09:40
PROVIDERS: PCP Family Medicine; Visit Provider Family Medicine
DX: I10 Essential (primary) hypertension (principal); E11.9 Type 2 diabetes mellitus without complications; E03.9 Hypothyroidism, unspecified
CPT/HCPCS: 36415; 80053; 80061; 83036; 84443; 85025

== ENCOUNTER → 2024-10-13 | Outpatient (CLI) | payer MEDICARE, SELFPAY ==
--- NOTE | 2024-10-13 16:41 | RAD_ITS ---
STUDY: X-RAY CHEST REASON FOR EXAM: Female, 74 years old. SOB TECHNIQUE: Frontal and lateral views of the chest. COMPARISON: None. FINDINGS: Right greater than left perihilar interstitial infiltrates or edema. The lungs are clear and expanded. There is no demonstrated pleural abnormality. Normal size heart. Normal mediastinum and doris. Normal visualized pulmonary arteries. Normal visualized aortic arch and descending thoracic aorta. Normal visualized thoracic spine. Normal visualized ribs, clavicles, and shoulders. There is no demonstrated abnormality of the visualized soft tissue structures of the upper abdomen. RAD/Chest PA and Lateral IMPRESSION: Interstitial infiltrates or edema as above Electronically Signed: Edwin Tucker MD at 16:58 EST ,
[2024-10-13 17:55] LABS: Absolute Lymphocyte Count 1.98 X10^3/uL (0.83-4.51); Absolute Neutrophil Count 9.2 X10^3/uL (2.0-7.7); Basophil# 0.05 X10^3/uL; Basophil% 0.4 % (0-1); Eosinophil# 0.07 X10^3/uL; Eosinophils% 0.6 % (0-5); Hematocrit 37.5 % (37-47); Hemoglobin 11.4 g/dL (12.0-15.0); Lymphocyte # 1.98 X10^3/ul (0.83-4.51); Lymphocyte % 16.3 % (19-41); Mean Corp Hgb Conc 30.4 g/dL (32-36); Mean Corpuscular Hgb 28.1 pg (27.0-32.0); Mean Corpuscular Volume 92.4 fL (81-99); Mean Platelet Vol. 9.2 fl (6.2-12.0); Monocyte# 0.77 X10^3/uL; Monocyte% 6.3 % (0-10); NRBC Flagged by Analyzer 0 % (0-5); Neutrophil % 75.7 % (47-70); Platelet Count 375 K/mm3 (150-450); RBC Distribution Width CV 13.9 % (11.6-14.6); RBC Distribution Width SD 46.9 fl (35.1-43.9); Red Blood Count 4.06 M/mm3 (4.2-5.4); White Blood Count 12.2 K/mm3 (4.4-11.0)
== END | disposition home or self-care (01) ==
PROVIDERS: PCP Family Medicine; Referring Provider Family Medicine; Visit Provider Family Medicine
DX: R06.02 Shortness of breath (principal)
CPT/HCPCS: 36415; 71046; 85025

== ENCOUNTER 2024-10-17 22:44 | Inpatient (IN) | payer MEDICARE, SELFPAY ==
[2024-10-17 22:44] VITALS: BP 184/96; PULSE 118; RESP 42; TEMP 36.2; O2SAT 93; O2SAT 96; BMI 49.8
[2024-10-17 22:49] VITALS: BP 184/96; PULSE 115; RESP 42; TEMP 36.2; O2SAT 93; O2SAT 97
--- NOTE | 2024-10-17 22:49 | EKG12_ITS ---
Test Reason : Blood Pressure : */* mmHG Vent. Rate : 119 BPM Atrial Rate : 119 BPM P-R Int : * ms QRS Dur : 106 ms QT Int : 314 ms P-R-T Axes : * 58 268 degrees QTcB Int : [address] & T wave abnormality, consider inferolateral ischemia Abnormal ECG Confirmed by Joao Ramirez ([id number]), pictures editor MIRNA DRAKE ([id number]) on 10/19/2024 11:05:09 AM Referred By: Confirmed By: Joao Ramirez
--- NOTE | 2024-10-17 22:49 | RAD_ITS ---
EXAM: XR CHEST, 1 VIEW CLINICAL INDICATION: pneumonia hypoxia TECHNIQUE: Frontal view of the chest. COMPARISON: 10/13/2024 FINDINGS: LUNGS AND PLEURAL SPACES: Diffuse ill-defined pulmonary opacities are similar to the prior examination which may be secondary to edema and/or multifocal pneumonia. Possible small bilateral pleural effusions. No pneumothorax. HEART: Cardiomegaly and/or pericardial effusion. MEDIASTINUM: Central airways and mediastinal contour are unremarkable. BONES/JOINTS: Degenerative changes in the spine. No acute fracture. SOFT TISSUES: No significant abnormality. VASCULATURE: Atherosclerosis. RAD/Chest 1 View (Portable) IMPRESSION: 1. Diffuse ill-defined pulmonary opacities are similar to the prior examination which may be secondary to edema and/or multifocal pneumonia. Possible small bilateral pleural effusions. 2. Cardiomegaly and/or pericardial effusion. Electronically Signed: Sean Navarrete DO at 23:14 EST ,
--- NOTE | 2024-10-17 22:50 | ED.VIS.DYS ---
HPI History of Present Illness Chief Complaint: Shortness of Breath Informant: patient, spouse/S.O. and EMS Narrative Narrative: 74-year-old female presenting to the emergency room with a chief complaint of dyspnea and hypoxia. Patient was prescribed Augmentin on 13 October after being diagnosed with pneumonia on the right side. Has been notes her appetite has been so-so. She has not had a significant amount of coughing or fever. It is noted that she sounded wheezing and seemed like she was having a difficult time breathing during the day that worsened this evening. She denies any pain with it. No rashes. She does not have any pulmonary history such as asthma or COPD. No known cardiac history. She is a diabetic with a history of hypertension and hypothyroidism. EMS notes that her oxygen level was in the 70s at home they administered first nasal cannula at 6 L and nonrebreather. Patient notes that her legs do have some swelling in them but they are not different than normal. PFSH PFS Medical History Wears glasses Post-menopausal Thyroid disease Diabetes Uses wheelchair Ambulates with cane Arthritis High cholesterol Back pain TIA (transient ischemic attack) Dietary restriction Non-smoker History of pain when walking History of transesophageal echocardiography (DESTIN) Cardiology follow-up encounter Hypertension Home Medications ?Medication ?Instructions ?Recorded ?Last Taken ?Type amlodipine 10 mg tablet 10 mg PO DAILY 08/31/22 11/19/22 08:00 History atorvastatin 10 mg tablet 10 mg PO QHS 08/31/22 Unknown History glipizide 2.5 mg tablet, extended 2.5 mg PO DAILY 08/31/22 Unknown History release 24 hr levothyroxine 100 mcg tablet 100 mcg PO DAILY 08/31/22 11/19/22 08:00 History (Synthroid) quinapril 40 mg tablet 40 mg PO DAILY 08/31/22 11/19/22 08:00 History amoxicillin 875 mg-potassium 1 tab PO BID 10/17/24 Unknown History clavulanate 125 mg tablet pioglitazone 15 mg-metformin 500 1 tab PO BID 10/17/24 Unknown History mg tablet Allergy/AdvReac Type Severity Reaction Status Date / Time No Known Allergies Allergy Verified 10/17/24 22:45 Surgical History Hx of colonoscopy Hx of cholecystectomy H/O: hysterectomy Social History household members: spouse Smoking Status: Never smoker alcohol intake: never ROS ROS ED Constitutional Constitutional ED: Denies chills, fever(s) or weight loss Eyes Eyes: Denies change in vision or diplopia ENT ENT ED: Denies ear pain, rhinorrhea or sore throat Cardiovascular Cardiovascular: Denies chest pain, orthopnea, palpitations or racing heartbeat Respiratory/Chest Respiratory/Chest: Reports cough, dyspnea, dyspnea on exertion and other Details: Wheezing ; Denies orthopnea Gastrointestinal Gastrointestinal: Denies abdominal pain, diarrhea, nausea or vomiting Genitourinary Genitourinary ED: Denies dysuria, hematuria or urinary frequency Musculoskeletal Musculoskeletal: Denies arthralgias or myalgias Integumentary Denies abscess or rash Neurologic Neurologic: Denies headache(s) or weakness Psychiatric Psychiatric: Denies anxiety, depression, suicidal ideation or suicidal thoughts Endocrine Endocrinology: Denies polydipsia, polyphagia or polyuria Allergic/Immunologic Allergic/Immunologic ED: Denies mouth swelling, tongue swelling or urticaria EXAM Physical Exam Const Vital Signs: 10/17/24 22:44 10/17/24 22:49 10/17/24 22:49 Temperature 97.2 F L 97.2 F L Temperature Source Axillary Axillary Pulse Rate 118 H 115 H Respiratory Rate 42 H 42 H Respiratory Effort Respiratory Pattern Blood Pressure 184/96 H 184/96 H Blood Pressure Mean 125 125 Pulse Ox 93 93 97 Oxygen Delivery Method Non-Rebreather Non-Rebreather Bi-pap Oxygen Flow Rate (L/min) 15 15 Fraction of Inspired Oxygen (FIO2) 10/17/24 22:57 10/17/24 23:00 10/17/24 23:05 Temperature Temperature Source Pulse Rate 117 H 106 H Respiratory Rate 32 H 20 H Respiratory Effort Short of Breath Respiratory Pattern Tachypnea Blood Pressure Blood Pressure Mean Pulse Ox 96 Oxygen Delivery Method Oxygen Flow Rate (L/min) Fraction of Inspired Oxygen (FIO2) 50 10/17/24 23:17 10/17/24 23:30 10/18/24 00:00 Temperature Temperature Source Pulse Rate 95 87 Respiratory Rate 27 H 20 H Respiratory Effort Respiratory Pattern Blood Pressure 155/70 H 123/83 H Blood Pressure Mean 94 90 Pulse Ox 96 99 Oxygen Delivery Method Bi-pap Oxygen Flow Rate (L/min) Fraction of Inspired Oxygen (FIO2) 40 Positive well nourished, well developed and obese General Appearance ED: well developed Nutritional Appearance: obese HEENT Reports normocephalic, head/scalp atraumatic and dry mucous membranes Mouth ED: Yes dry mucous membranes Mouth: dry mucous membranes Eyes PERRL and EOMs intact bilaterally Neck no lymphadenopathy, supple and no JVD Resp Resp Narrative: Patient has increased work of breathing. Auscultation: diminished lung sounds Cardio regular rate, regular rhythm and no murmurs Rate: tachycardic GI normal to inspection, nondistended, normoactive bowel sounds and non-tender Palpation: soft Back/Spine no CVA tenderness and normal ROM Extremity General Extremety ED: Yes edema General Extremity: edema bilateral lower extremity Details: mild Neuro oriented x3 and CN's II-XII intact bilaterally Sensorium / Orientation: alert Motor Exam: strength 5/5 throughout Psych mental status grossly normal Mood & Affect: Negative for depressed or tearful Skin no rashes or lesions noted and no wounds Sepsis Attestation Sepsis Alert: Yes Sepsis Attestation: Agree w/Sepsis Date exam was performed: 10/18/24 Time exam was performed: 23:00 Possible Source of Sepsis: Pulmonary Sepsis Organ Dysfunction Criteria Present: Acute Respiratory Failure (New need for BiPAP/CPAP or MV) and Lactic Acid > 2 mmol/L MDM MDM MDM Narrative Medical decision making narrative: Differential diagnosis includes but not limited to pneumonia pleural effusion congestive heart failure acute coronary syndrome electrolyte abnormalities solid organ dysfunction anemia CO2 retention respiratory failure Patient was brought to resuscitation room where she received supplemental oxygen. EKG shows a sinus tachycardia. She was placed on BiPAP requiring Ativan due to anxiety from the BiPAP. My independent interpretation of the plain film chest x-ray is right lower lobe pneumonia. Patient's white count is elevated at 17.7. CO2 28 potassium 5.4 creatinine 1.71 with a BUN of 47 lactic acid is elevated at 4.9. I believe that this most likely represents the significant increased work of breathing and degree of hypoxia that the patient was experiencing rather than a volume deficit. Troponin elevated at 11/15/2002 with a nonischemic EKG BNP elevated 799. Patient received breathing treatments Rocephin and azithromycin after blood cultures. Patient is doing better on the BiPAP. Mentation is normal. No evidence of hypoperfusion on physical exam. Because of her significant work of breathing and profound hypoxia and evidence of lower extremity mild edema with elevated BNP medicine at this time to provide large fluid boluses as she does not appear volume depleted. We plan on admitting her into hospital. History & Record Review Discussion w/independent historian: EMS personnel, Patient and Significant other Additional record(s) reviewed:: Prior outpatient record Lab Data Attestation: I reviewed the patient's lab results. Labs: Laboratory Results - last 24 hr 10/17/24 22:56 WBC 17.7 H RBC 4.10 L Hgb 11.8 L Hct 38.5 MCV 93.9 MCH 28.8 MCHC 30.6 L RDW Std Deviation 50.4 H RDW Coeff of Leif 14.7 H Plt Count 469 H MPV 9.2 Immature Gran % (Auto) 2.600 H Neut % (Auto) 83.4 H Lymph % (Auto) 10.9 L [place] % (Auto) 2.8 Eos % (Auto) 0.0 Baso % (Auto) 0.3 Absolute Neuts (auto) 14.8 H Absolute Lymphs (auto) 1.93 Nucleated RBC % 0.6 Sodium 142 Potassium 5.4 H Chloride 111 H Carbon Dioxide 20.0 L Anion Gap 11 BUN 47 H Creatinine 1.71 H Estim Creat Clear Calc 34.85 Est GFR (MDRD) Af Amer 38 L Est GFR (MDRD) Non-Af 31 L BUN/Creatinine Ratio 27.5 H Glucose 405 H Lactic Acid 4.9 H* Calcium 9.0 Total Bilirubin 0.50 Direct Bilirubin 0.22 AST 27 ALT 33 Alkaline Phosphatase 91 Troponin I High Sens 1103 H* B-Natriuretic Peptide 799.9 H Total Protein 7.9 Albumin 3.8 Globulin 4.1 ABG Data ABG results: ABG 10/17/24 23:15 Specimen Type ART Sample Site L Radial pH 7.24 L Bicarbonate Actual 19.1 L Total CO2 20 Base Excess -8 L O2 Saturation 94 L O2 % 40.0 ABG pCO2 44.7 ABG pO2 84 Gavino Test Positive Respiration Rate 14 O2 Delivery Device BiPAP Vent Mode NIV Clinical Comments 28/04 14 40% Radiography Diagnostic Testing: Clinical Impression(s) from Imaging Studies Chest X-Ray 10/17/24 22:49 IMPRESSION: 1. Diffuse ill-defined pulmonary opacities are similar to the prior examination which may be secondary to edema and/or multifocal pneumonia. Possible small bilateral pleural effusions. 2. Cardiomegaly and/or pericardial effusion. Electronically Signed: Sean Navarrete DO at 23:14 EST , EKG Initial EKG: Attestation: I personally reviewed and interpreted this EKG as follows: Comments: Sinus tachycardia ventricular rate of 119 bpm Management Discussion w/another healthcare provider: Hospitalist Critical Care Time Critical Care Time: Yes Critical care time (excluding procedures): 30-74 minutes (35 min), Including time spent:, Discussing w/Patient &/or Family/Color Laboratory Technician, Discussing w/Consultants, Arranging Admission or Transfer and Performing Direct Patient Care at Bedside Discharge Plan Dx/Rx/DC Orders Clinical Impression: Pneumonia, Sepsis, Acute hypoxemic respiratory failure, Metabolic acidosis, Elevated troponin, Diabetes, Hypertension Disposition Disposition: Acute Care [facility]
[2024-10-17 23:00] VITALS: PULSE 117; RESP 14; RESP 32; O2SAT 96
[2024-10-17 23:02] LABS: Absolute Lymphocyte Count 1.93 X10^3/uL (0.83-4.51); Absolute Neutrophil Count 14.8 X10^3/uL (2.0-7.7); Basophil# 0.06 X10^3/uL; Basophil% 0.3 % (0-1); Hematocrit 38.5 % (37-47); Hemoglobin 11.8 g/dL (12.0-15.0); Lymphocyte # 1.93 X10^3/ul (0.83-4.51); Lymphocyte % 10.9 % (19-41); Mean Corp Hgb Conc 30.6 g/dL (32-36); Mean Corpuscular Hgb 28.8 pg (27.0-32.0); Mean Corpuscular Volume 93.9 fL (81-99); Mean Platelet Vol. 9.2 fl (6.2-12.0); Monocyte% 2.8 % (0-10); NRBC Flagged by Analyzer 0.6 % (0-5); Neutrophil # 14.75 X10^3/uL (2.7-7.7); Neutrophil % 83.4 % (47-70); Platelet Count 469 K/mm3 (150-450); RBC Distribution Width CV 14.7 % (11.6-14.6); RBC Distribution Width SD 50.4 fl (35.1-43.9); White Blood Count 17.7 K/mm3 (4.4-11.0)
[2024-10-17] MEDS: LORazepam 2 MG/ML Syringe 0.5 MG IV (23:02)
--- NOTE | 2024-10-17 23:03 | ED.RN ---
Dr Cui made aware of sepsis alert. Per Dr. Cui no blood cultures or antibiotics ordered.
[2024-10-17 23:05] VITALS: PULSE 106; RESP 20
[2024-10-17] MEDS: Albuterol 2.5 MG/3 ML VIAL.NEB. INHALATION (23:05)
[2024-10-17] MEDS: Ipratropium/Albuterol Sulfate 3 ML AMPUL.NEB INHALATION (23:05)
[2024-10-17] MEDS: 0.9% Normal Saline (1000mL) 1,000 ML 150 ML IV (23:09)
[2024-10-17] MEDS: Azithromycin 500 MG in Dextrose 5%-Water (250mL Bag) 250 ML 250 MG IV (23:18)
[2024-10-17] MEDS: Ceftriaxone 1 GM/50 ML BAG IV (23:18)
[2024-10-17 23:19] LABS: Allen Test Positive; Base Excess -8 mmol/L (-2 to +2); Bicarbonate 19.1 mmol/L (22-26); Blood Gas Specimen Type ART; Comment 14/6 14 40%; Mode NIV; O2 Delivery Device BiPAP; PO2 84 mmHG (75-100); RR 14; SITE L Radial; SO2 94 % (95-99); Total Carbon Dioxide 20 mmol/L; pCO2 44.7 mmHg (35-45); pH 7.24 (7.35-7.45)
[2024-10-17 23:29] LABS: BNP,B-Type NATRIURETIC PEPTIDE 799.9 pg/mL (0-100)
[2024-10-17 23:30] VITALS: BP 155/70; PULSE 95; RESP 27; O2SAT 96
[2024-10-17 23:31] LABS: Lactic Acid 4.9 mmol/L (0.4-1.9)
[2024-10-17 23:32] LABS: AST(SGOT) 27 U/L (15-37); Alanine Aminotransfer ALT/SGPT 33 U/L (13-56); Albumin, Serum 3.8 g/dL (3.2-5.0); Alkaline Phosphatase 91 U/L (45-117); Anion Gap 11 (5-15); BUN 47 mg/dL (7-18); BUN/Creat Ratio 27.5 RATIO (10-20); Bilirubin, Direct 0.22 mg/dL (0.00-0.30); Chloride 111 mmol/L (98-107); Creatinine, Serum 1.71 mg/dL (0.55-1.02); EST Glomerular Filtration Rate 31 mL/min (>60); Est Glom Filt Rate - Afr Amer 38 mL/min (>60); Estimated Creatinine Clearance 34.85 ml/min; Globulin 4.1 g/dL (2.2-4.2); Glucose 405 mg/dL (74-106); Potassium 5.4 mmol/L (3.5-5.1); Protein, Total 7.9 g/dL (6.4-8.2); Sodium Level 142 mmol/L (136-145); Troponin-I HS 1103 pg/mL (3.0-54.0)
[2024-10-18] VITALS (28 sets, daily range): BP systolic 92–195; BP diastolic 55–99; PULSE 64–107; RESP 14–33; TEMP 36.1–36.9; O2SAT 89–100; BMI 50.4; BMI 50.1
--- NOTE | 2024-10-18 00:11 | ED.RN ---
Discussed need for continuing iv fluid d/t elevated bnp, ok to hold iv fluids after antibiotic infusion.
--- NOTE | 2024-10-18 00:26 | PCM.HP.STD ---
[facility] - General General Date of Admission: 10/18/24 Date of Service: 10/18/24 Chief Complaint: SOB. HPI Narrative MISAEL MEDINA, is a 74 F with a past medical history of essential hypertension; on amlodipine and quinapril, hyperlipidemia; on atorvastatin, hypothyroidism, morbid obesity; with BMI of 49.8 this admission, DM-2; of unknown control on glipizide and pioglitazone-metformin, history of TIA, history of cholecystectomy, history of hysterectomy, OA; with chronic back pain ambulating with cane at baseline and recently diagnosed Right-sided Pneumonia as an outpatient on October 13, 2024 with patient started on empiric oral Augmentin who presents to [facility] ER complaining of shortness of breath. Patient states her symptoms have progressively worsened in spite of taking her Augmentin as prescribed with wheezing and dyspnea on exertion that progressed to shortness of breath at rest. She activated EMS who noted her oxygen saturation in the ~70% range on room air prompting her to be started on 6L nasal cannula and then nonrebreather. She denies associated fever, chills, nausea, vomiting, diarrhea, constipation, dysuria, hematuria, headache, chest pain, palpitations, heart racing or history of LA/CHF. In the ER she was noted to have a chest x-ray positive for diffuse ill-defined opacities that are similar to the prior examination which may be secondary to edema and/or multifocal pneumonia with possible small bilateral pleural effusions and cardiomegaly and/or pericardial effusion complicated by leukocytosis of 17.7 K with Left-shift of 2.6% and lactic acidosis of 4.9 mmol/L present on admission suspicious for Sepsis complicated by ABG evidence of acute hypoxic respiratory failure requiring BiPAP with an elevated initial troponin of 1,103 pg/mL present on admission consistent with suspected non-ST elevation LA compounded by elevated BNP of 799.9 pg/mL consistent with AE CHF along with laboratory evidence of suspected JOSUE with elevated serum creatinine of 1.71 mg/dL and BUN of 47 mg/dL present on admission (up from her baseline of 1.13 mg/dL and BUN of 25 mg/dL last admission) in addition to Hyperkalemia of 5.4 mmol/L present on admission and she was then admitted to the ICU for treatment under the sepsis protocol for stay that is expected to extend beyond 2 midnights. [facility] Medical History Wears glasses Post-menopausal Thyroid disease Diabetes Uses wheelchair Ambulates with cane Arthritis High cholesterol Back pain TIA (transient ischemic attack) Dietary restriction Non-smoker History of pain when walking History of transesophageal echocardiography (DESTIN) Cardiology follow-up encounter Hypertension Home Medications ?Medication ?Instructions ?Recorded ?Last Taken ?Type amlodipine 10 mg tablet 10 mg PO DAILY 08/31/22 11/19/22 08:00 History atorvastatin 10 mg tablet 10 mg PO QHS 08/31/22 Unknown History glipizide 2.5 mg tablet, extended 2.5 mg PO DAILY 08/31/22 Unknown History release 24 hr levothyroxine 100 mcg tablet 100 mcg PO DAILY 08/31/22 11/19/22 08:00 History (Synthroid) quinapril 40 mg tablet 40 mg PO DAILY 08/31/22 11/19/22 08:00 History amoxicillin 875 mg-potassium 1 tab PO BID 10/17/24 Unknown History clavulanate 125 mg tablet pioglitazone 15 mg-metformin 500 1 tab PO BID 10/17/24 Unknown History mg tablet Allergy/AdvReac Type Severity Reaction Status Date / Time No Known Allergies Allergy Verified 10/17/24 22:45 Surgical History Hx of colonoscopy Hx of cholecystectomy H/O: hysterectomy Social History household members: spouse Smoking Status: Never smoker alcohol intake: never ROS ROS Narrative Review of systems: Constitutional: Patient denies fever or chills. Eyes: Patient denies changes in vision or discharge from eyes. ENT: Patient denies runny nose, sore throat or ear pain. Resp: Patient admits to shortness of breath at rest and cough with wheezing as per HPI. Cardiovascular: Patient denies chest pain, heart racing or palpitations. GI: Patient denies abdominal pain, nausea, vomiting or diarrhea. : Patient denies dysuria or hematuria. MSK: Patient denies arthralgias or myalgias. Skin: Patient denies rash, abscess or jaundice. Psych: Patient denies symptoms of uncontrolled depression or anxiety. Neuro: Patient denies headache, paresthesias or focal neurologic weakness. Allergy: Patient denies lip swelling, tongue swelling or urticaria. Hematology: Patient denies easy bleeding or easy bruisability. Endocrinology: Patient denies polyuria, polydipsia or polyphagia. 14 point review of systems otherwise negative except for positives noted above in HPI. Vital Signs Vital Signs Vital Signs: 10/17/24 22:44 10/17/24 22:49 10/17/24 22:49 Temperature 97.2 F L 97.2 F L Temperature Source Axillary Axillary Pulse Rate 118 H 115 H Respiratory Rate 42 H 42 H Respiratory Effort Respiratory Pattern Blood Pressure 184/96 H 184/96 H Blood Pressure Mean 125 125 Pulse Ox 93 93 97 Oxygen Delivery Method Non-Rebreather Non-Rebreather Bi-pap Oxygen Flow Rate (L/min) 15 15 Fraction of Inspired Oxygen (FIO2) 10/17/24 22:57 10/17/24 23:00 10/17/24 23:05 Temperature Temperature Source Pulse Rate 117 H 106 H Respiratory Rate 32 H 20 H Respiratory Effort Short of Breath Respiratory Pattern Tachypnea Blood Pressure Blood Pressure Mean Pulse Ox 96 Oxygen Delivery Method Oxygen Flow Rate (L/min) Fraction of Inspired Oxygen (FIO2) 50 10/17/24 23:17 10/17/24 23:30 10/18/24 00:00 Temperature Temperature Source Pulse Rate 95 87 Respiratory Rate 27 H 20 H Respiratory Effort Respiratory Pattern Blood Pressure 155/70 H 123/83 H Blood Pressure Mean 94 90 Pulse Ox 96 99 Oxygen Delivery Method Bi-pap Oxygen Flow Rate (L/min) Fraction of Inspired Oxygen (FIO2) 40 Weight Weight: 263 lb 8 oz Body Mass Index (BMI) 49.8 Physical Exam Const alert and oriented x3 Constitutional Narrative: Patient appears morbidly obese and acutely ill but comfortable on BiPAP at this time. General Appearance: cooperative HEENT normocephalic, head/scalp atraumatic, hearing grossly normal bilaterally and moist oral mucous membranes Eyes PERRL and EOMs intact bilaterally Neck no lymphadenopathy and supple Resp Resp Narrative: Labored respirations noted with increased work of breathing and diminished lung sounds throughout with scattered wheezes. Auscultation: wheezes Cardio regular rate and regular rhythm Cardio Narrative: Tachycardia noted. GI normal to inspection, nondistended, normoactive bowel sounds, soft to palpation, non-tender and non-distended GI Narrative: Morbidly obese. Extremity Extremity Narrative: 1+ symmetrical bilateral lower extremity edema noted Skin Skin Narrative: Patient has no evidence of rash, abscess or jaundice. Neuro oriented x3, CN's II-XII intact bilaterally, moves all extremities and no focal motor deficits Sensorium / Orientation: awake, alert, oriented to person, oriented to place and oriented to time Speech: speech normal Psych affect normal Results Medical Records Data Attestation: I reviewed the patient's medical records Lab / Micro Data Attestation: I reviewed the patient's lab results. 10/17/24 22:56 10/17/24 22:56 Labs: Laboratory Results - last 24 hr 10/17/24 22:56: WBC 17.7 H, RBC 4.10 L, Hgb 11.8 L, Hct 38.5, MCV 93.9, MCH 28.8, MCHC 30.6 L, RDW Std Deviation 50.4 H, RDW Coeff of Leif 14.7 H, Plt Count 469 H, MPV 9.2, Immature Gran % (Auto) 2.600 H, Neut % (Auto) 83.4 H, Lymph % (Auto) 10.9 L, [place] % (Auto) 2.8, Eos % (Auto) 0.0, Baso % (Auto) 0.3, Absolute Neuts (auto) 14.8 H, Absolute Lymphs (auto) 1.93, Nucleated RBC % 0.6, Sodium 142, Potassium 5.4 H, Chloride 111 H, Carbon Dioxide 20.0 L, Anion Gap 11, BUN 47 H, Creatinine 1.71 H, Estim Creat Clear Calc 34.85, Est GFR (MDRD) Af Amer 38 L, Est GFR (MDRD) Non-Af 31 L, BUN/Creatinine Ratio 27.5 H, Glucose 405 H, Lactic Acid 4.9 H*, Calcium 9.0, Total Bilirubin 0.50, Direct Bilirubin 0.22, AST 27, ALT 33, Alkaline Phosphatase 91, Troponin I High Sens 1103 H*, B-Natriuretic Peptide 799.9 H, Total Protein 7.9, Albumin 3.8, Globulin 4.1 Micro: Microbiology 10/17/24 23:10 Mucosa - Nasopharyngeal SARS-CoV-2, Influenza & RSV (PCR) - Final ABG Data ABG results: ABG 10/17/24 23:15 Specimen Type ART Sample Site L Radial pH 7.24 L Bicarbonate Actual 19.1 L Total CO2 20 Base Excess -8 L O2 Saturation 94 L O2 % 40.0 ABG pCO2 44.7 ABG pO2 84 Gavino Test Positive Respiration Rate 14 O2 Delivery Device BiPAP Vent Mode NIV Clinical Comments 28/04 14 40% Imaging Radiology Impression Chest X-Ray 10/17/24 22:49 IMPRESSION: 1. Diffuse ill-defined pulmonary opacities are similar to the prior examination which may be secondary to edema and/or multifocal pneumonia. Possible small bilateral pleural effusions. 2. Cardiomegaly and/or pericardial effusion. Electronically Signed: Sean Navarrete, at 23:14 EST , Assessment & Plan Assessment/Plan (1) Sepsis: QUALIFIERS: Sepsis acute organ dysfunction status: without acute organ dysfunction Sepsis type: sepsis due to unspecified organism Qualified Code(s): A41.9 - Sepsis, unspecified organism (2) Pneumonia: QUALIFIERS: Laterality: right Lung location: unspecified part of lung Pneumonia type: due to unspecified organism Qualified Code(s): J18.9 - Pneumonia, unspecified organism (3) Acute hypoxemic respiratory failure: (4) JOSUE (acute kidney injury): (5) Metabolic acidosis: (6) Hyperkalemia: (7) Elevated troponin: (8) Morbid obesity with BMI of 45.0-49.9, adult: (9) Diabetes: QUALIFIERS: Diabetes mellitus complication status: without complication Diabetes mellitus assisted insulin use: unspecified assisted insulin use status Diabetes mellitus type: type 2 Qualified Code(s): E11.9 - Type 2 diabetes mellitus without complications PLAN: Plan 1. Chest x-ray positive for diffuse ill-defined opacities that are similar to the prior examination which may be secondary to edema and/or multifocal pneumonia with possible small bilateral pleural effusions and cardiomegaly and/or pericardial effusion complicated by leukocytosis of 17.7 K with Left-shift of 2.6% and lactic acidosis of 4.9 mmol/L present on admission suspicious for Sepsis in the setting of failed outpatient antibiotic treatment - Admit to ICU for treatment under the Sepsis protocol. Patient could not tolerate more than one liter of IVF in ER before becoming severely dyspneic so fluid bolus was stopped. Continue broad-spectrum antibiotics with IV Vancomycin and IV Zosyn and await culture and sensitivity data. Check urinary antigens to Streptococcus pneumonia and Legionella. Give Tylenol prn pain or fever. 2. Elevated initial troponin of 1,103 pg/mL present on admission consistent with suspected non-ST elevation LA complicating #1 - Serialize troponin. Give BASA, Plavix and start IV Heparin with bolus per cardiac protocol. Check echocardiogram to evaluate LVEF. [facility] will be consulted to see this patient on-rounds in the AM for further recommendations regarding LHC this admission with help appreciated in advance. 3. Elevated BNP of 799.9 pg/mL consistent with AE CHF compounding #1 & #2 - Patient will require Lasix IV once her infection is controlled. 4. ABG evidence of Acute Hypoxic Respiratory Failure requiring BiPAP arising from #1 - #3 - Recheck ABG after BiPAP. 5. JOSUE with elevated serum creatinine of 1.71 mg/dL and BUN of 47 mg/dL present on admission (up from her baseline of 1.13 mg/dL and BUN of 25 mg/dL last admission) - Patient given IVF in ER. Avoid potentially nephrotoxic agents. 6. Hyperkalemia of 5.4 mmol/L present on admission - Patient given IVF for sepsis. Recheck level in AM to follow trend. 7. Morbid obesity; with BMI of 49.8 this admission - Weight loss will be recommended. Check TSH. This complicates her case and may hamper recovery. 8. Essential hypertension; on amlodipine and quinapril - Hold scheduled antihypertensives until infection outlined in #1 is resolved. 9. Hyperlipidemia; on atorvastatin - Resume statin and check Lipid Profile in light of #1. 10. Hypothyroidism - Continue Synthroid and check TSH. 11. DM-2; of unknown control on glipizide and pioglitazone-metformin - NPO for now. FSBS q. 6 hours plus SSI. Check HgbA1c to objectively assess quality of diabetic control. hold oral hypoglycemia agents. 12. History of TIA - Noted. 13. History of cholecystectomy - Noted. 14. History of hysterectomy - Noted. 15. OA; with chronic back pain ambulating with cane at baseline - Noted. 16. DVT prophylaxis - Patient already on IV Heparin for #2. Total time: Approximately (but not less than) 75 minutes. Sepsis Attestation Sepsis Alert: Yes Sepsis Attestation: Agree w/Sepsis Date exam was performed: 10/18/24 Time exam was performed: 01:00 Possible Source of Sepsis: Pulmonary Sepsis Organ Dysfunction Criteria Present: Acute Respiratory Failure (New need for BiPAP/CPAP or MV) and Lactic Acid > 2 mmol/L Fluid Resuscitation Fluid resuscitation indicated?: Yes Fluid Resuscitation ordered: Lesser volume fluid bolus ordered Amount of fluid ordered: 1 Reason for lesser fluid bolus:: Concern for fluid overload and Heart failure Sepsis Note Date exam was performed: 10/18/24 Time exam was performed: 05:00 Sepsis Attestation: Sepsis re-evaluation was performed Response to fluids: Fluid responsive hypotension Charges/Coding Visit Charges Inpatient E&M: 67898 Init Hosp L3
--- NOTE | 2024-10-18 00:40 | CT_ITS ---
STUDY: CT CHEST WITHOUT CONTRAST REASON FOR EXAM: Female, 74 years old. Pneumonia. Evaluate for abscess. RADIATION DOSAGE (If Supplied By Facility): CTDIvol = ( 20.14 ) mGy, DLP = ( 669.47 ) mGycm TECHNIQUE: Transaxial CT imaging of the chest was performed without administration of intravenous contrast material, followed by coronal and sagittal reformatting. Individualized dose optimization techniques were used for this CT. COMPARISON: No relevant priors. FINDINGS: SUPRACLAVICULAR SOFT TISSUES: Supraclavicular soft tissues are normal. Thyroid gland is normal. MEDIASTINUM: Shotty mediastinal and hilar lymph nodes. Tracheal bronchial tree and esophagus are normal. Thoracic aorta is normal caliber. There is mild atherosclerotic plaque of the aortic arch. Mild cardiomegaly. Aortic root,, coronary artery and mitral annular calcification. Normal pericardium. LUNGS: Small to moderate-sized bilateral pleural effusions with bibasilar compressive atelectasis. There is associated peribronchial airspace consolidation throughout the lower lobes with diffuse nodular groundglass filtration throughout the remaining aerated lung segments. No pneumothorax. UPPER ABDOMEN: Visualized portions of the upper abdomen are unremarkable. SKELETAL STRUCTURES: Mild to moderate multilevel degenerative changes spine. CT/Chest without Contrast IMPRESSION: 1. Small moderate size bilateral pleural effusions with bibasilar compressive atelectasis versus airspace consolidation 2. Diffuse nodular groundglass infiltration noted throughout the remaining aerated segments, likely infectious in etiology 3. Reactive mediastinal and hilar lymph nodes. Electronically Signed: Jorge Garza MD at 2:25 EST ,
[2024-10-18 00:45] LABS: Reflex Lactate? Y
[2024-10-18] MEDS: Piperacil/Tazobactam 3.375 GM in 0.9% Normal Saline (50mL MB+) 50 ML IV ×4 (02:15→22:27)
[2024-10-18] MEDS: HEPARIN/D5w 25,000 UNITS 25,000 UNITS/250 ML IV.SOLN. 10 UNITS CONT INF (02:35)
[2024-10-18] MEDS: Vancomycin HCl 2,000 MG in 0.9% Normal Saline (500mL Bag) 500 ML 250 MG IV (02:40)
[2024-10-18 07:09] LABS: Troponin-I HS 1119 pg/mL (3.0-54.0)
[2024-10-18 07:09] LABS: Thyroid Stim Hormone (TSH) 0.224 uIU/mL (0.358-3.740)
--- NOTE | 2024-10-18 07:20 | ECHOCS_ITS ---
Reason For Study: CHF Procedure This was a 2D Doppler, Color Flow transthoracic echocardiogram. The study was technically difficult. Due to body habitus. Contrast injection was performed. Exam performed portable in ICU/CCU. Left Ventricle Normal LV size. The estimated ejection fraction is 40-45 %. There is evidence of diastolic dysfunction. Hypokinesis of the inferior wall. Right Ventricle Normal RV size. Normal systolic function. Atria The left atrium is mildly enlarged. Normal right atrium. No doppler evidence for ASD. Mitral Valve There is no mitral valve stenosis. Mild-Moderate (1-2+) mitral valve insufficiency. Tricuspid Valve There is no tricuspid stenosis. Mild tricuspid valve insufficiency. Pulmonary artery systolic pressure is 70 mmHg. Aortic Valve The aortic valve is not well visualized. Mild aortic stenosis. No aortic valve insufficiency. Pulmonic Valve There is no pulmonic valvular stenosis. No pulmonic valve insufficiency. Great Vessels Normal aortic root. Pericardium/Pleural No pericardial effusion. Medication Diluted definity 4.0ml given slow IV push to enhance endocardial definition. MMode/2D Measurements & Calculations LVIDd: 5.9 cm IVSd: 1.3 cm LVOT diam: 2.1 cm LVIDs: 4.4 cm LVPWd: 1.3 cm RVDd: 3.4 cm FS: 24.4 % LVOT area: 3.6 cm2 LA dimension: 4.2 cm LAV(MOD-bp): 73.0 ml LVAd ap4: 40.4 cm2 LAV(MOD-bp) Indexed: 34.4 ml/m2 LVLd ap4: 8.5 cm LAV(MOD-sp2): 76.0 ml EDV(MOD-sp4): 158.6 ml LAV(MOD-sp4): 68.9 ml EDV(sp4-el): 163.5 ml LVAs ap4: 25.7 cm2 LVLs ap4: 7.3 cm ESV(MOD-sp4): 73.8 ml ESV(sp4-el): 76.6 ml EF(MOD-sp4): 53.5 % EF(sp4-el): 53.2 % SV(MOD-sp4): 84.8 ml SV(sp4-el): 86.9 ml LA A4 area: 22.6 cm2 SI(MOD-sp4): 40.0 ml/m2 RA A4 area: 13.0 cm2 TAPSE: 2.1 cm Time Measurements MV dec time: 0.16 sec Doppler Measurements & Calculations MV E max fermín: 144.7 cm/sec Lat Peak E' Fermín: 4.1 cm/sec Med Peak E' Fermín: 5.6 cm/sec MV A max fermín: 105.5 cm/sec E/E' lat: 35.1 E/E' med: 25.9 MV E/A: 1.4 MV V2 max: 189.0 cm/sec MV P1/2t max fermín: 181.3 cm/sec Ao V2 max: 243.1 cm/sec MV max P.3 mmHg MV P1/2t: 59.5 msec Ao max P.7 mmHg MV V2 mean: 101.6 cm/sec MV dec slope: 892.1 cm/sec2 Ao V2 mean: 172.0 cm/sec MV mean P.8 mmHg MVA(P1/2t): 3.7 cm2 Ao mean P.2 mmHg MV V2 VTI: 43.7 cm Ao V2 VTI: 51.1 cm MVA(VTI): 2.3 cm2 AV (velocity ratio): 0.57 SUNIL(I,D): 2.0 cm2 SUNIL(V,D): 1.8 cm2 LV V1 max: 125.4 cm/sec SV(LVOT): 102.6 ml PA V2 max: 115.6 cm/sec LV V1 max P.3 mmHg LV V1 mean P.9 mmHg LV V1 mean: 93.6 cm/sec LV V1 VTI: 28.9 cm TR max fermín: 397.3 cm/sec TR max P.0 mmHg ECHO/Echo Complete W/ Contrast Interpretation Summary The estimated ejection fraction is 40-45 %. Hypokinesis of the inferior wall The left atrium is mildly enlarged. Mild-Moderate (1-2+) mitral valve insufficiency. Pulmonary artery systolic pressure is 70 mmHg. Mild aortic stenosis. Ordering Physician: Jad Campos Referring Physician: Donal Castle By: Kolby GONZALEZ RDCS, Brittney and Student
--- NOTE | 2024-10-18 07:26 | PCM.RX.CS ---
Consult Antibiotic Management Pharmacy has been consulted to manage selected antibiotic: Vancomycin Type of Intervention Type of Consult: New start Suspected Infection Suspected Infection: Sepsis Prior Doses of Antibiotics Prior Doses of Antibiotics Received/Current Regimen: 10/18/24 @ 0240 Labs Labs: Sodium 142 mmol/L (136-145) 10/17/24 22:56 Potassium 5.4 mmol/L (3.5-5.1) H 10/17/24 22:56 Chloride 111 mmol/L (98-107) H 10/17/24 22:56 Carbon Dioxide 20.0 mmol/L (21.0-32.0) L 10/17/24 22:56 Anion Gap 11 (5-15) 10/17/24 22:56 BUN 47 mg/dL (7-18) H 10/17/24 22:56 Creatinine 1.71 mg/dL (0.55-1.02) H 10/17/24 22:56 Est GFR (MDRD) Af Amer 38 mL/min (>60) L 10/17/24 22:56 Est GFR (MDRD) Non-Af 31 mL/min (>60) L 10/17/24 22:56 BUN/Creatinine Ratio 27.5 RATIO (10-20) H 10/17/24 22:56 Glucose 405 mg/dL (74-106) H 10/17/24 22:56 Microbiology Microbiology: Microbiology 10/17/24 23:10 Mucosa - Nasopharyngeal SARS-CoV-2, Influenza & RSV (PCR) - Final Dosing Weight Weight used for dosin.5 kg Estimated Creatinine Clearance Estimated Creatinine Clearance: 35 Pharmacy Plan for Drug Dosing Pharmacy Plan for Drug Dosing: Pharmacy Service will continue to monitor and adjust dosing as required.
--- NOTE | 2024-10-18 07:30 | EKG12_ITS ---
Test Reason : troponin Blood Pressure : */* mmHG Vent. Rate : 71 BPM Atrial Rate : 71 BPM P-R Int : 144 ms QRS Dur : 86 ms QT Int : 392 ms P-R-T Axes : 67 20 -2 degrees QTcB Int : 425 ms Sinus rhythm with marked sinus arrhythmia Nonspecific ST and T wave abnormality Abnormal ECG Confirmed by Joao Ramirez ([id number]), art editor DANNIELLE DENNIS ([id number]) on 10/23/2024 9:14:52 AM Referred By: Kaelyn Confirmed By: Joao Ramirez
[2024-10-18] MEDS: 0.9% Saline Lock 10 ML Syringe IV ×3 (07:35→23:34)
--- NOTE | 2024-10-18 07:42 | CON.PCM.CA_ITS ---
Assessment & Plan Assessment/Plan (1) Elevated troponin: PLAN: Patient's troponins were 1111 delta troponin 1119 and then a third troponin was drawn at 14,000. Initial EKG showed nonspecific but prominent ST segment depression in the inferior lateral leads. Repeat EKG with a heart rate much slower and normal sinus rhythm shows nonspecific minor ST segment changes. There is no evidence of a STEMI. The patient denies any chest pains nausea and vomiting or anything that would suggest an acute primary ischemic event. The patient was profoundly hypoxic due to her respiratory failure and sepsis she also had an elevated lactate of 4.9 consistent with hypoperfusion. I suspect this is demand ischemia. We will check an echocardiogram to reevaluate her LV function her body habitus will make visualization difficult as it did on her previous echo in 2021. (2) Acute hypoxemic respiratory failure: PLAN: Patient is stabilized now on BiPAP at 40% FiO2. The respiratory failure seems to be related to a pneumonia that was originally diagnosed September 2019 treated with ambulatory antibiotics. (3) JOSUE (acute kidney injury): PLAN: Patient's follow-up renal function is pending at this time. Her creatinine clearance was 31 on original presentation. BUN was 47 creatinine 1.7. The patient will be continue with hydration and treatment of her sepsis. 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 She is on oral medication she has not been on insulin. Her initial presenting glucose was 405 consistent with her stress-induced hyperglycemia from the sepsis hypoxia and overall general medical situation. Further treatment will be deferred to the primary service. (5) Hypertension: QUALIFIERS: Hypertension type: primary hypertension Qualified Code(s): I10 - Essential (primary) hypertension PLAN: Patient carries a history of primary hypertension. She has been treated at home with BRETT inhibitor and amlodipine. This should be reinstituted as tolerated once she is stabilized from her sepsis. (6) High cholesterol: PLAN: The patient is on appropriate statin therapy for a diabetic. This will be continued to be monitored and treated to the primary service. PLAN: Plan 1. Obtain 2D echocardiogram to reevaluate the LV function her EF was 65% with no wall motion abnormalities November 13, 2022. 2. Continue with ventilatory support and treatment of her pneumonia per the primary service and ICU team. 3. We will recheck a fourth troponin as the significant elevation from a delta troponin going up of minimal to this when going up to 14,000 is suspect. Especially in the face of no significant EKG changes suggestive of a STEMI or severe ischemia. 4. Cardiology will follow-up as directed and reevaluate the patient pending the outcome of the echocardiogram. HPI Consult Data Date of Consult: 10/18/24 HPI Narrative Reason for Consultation: Elevated troponins HPI Narrative: MISAEL MEDINA, is a 74 F who presents last evening to the emergency department with progressive shortness of breath and a recent pneumonia diagnosed 10/13/2024. Patient presents emergency room with an O2 sat of 70%. Her lactic acid level was measured at 4.9. The patient was profoundly short of breath requiring BiPAP for resuscitation. She also was noted to have renal insufficiency with a creatinine of 1.7 and creatinine clearance of 31. The patient's her initial troponin was 1000 103 her second set was 1119. A third set which I do not have documentation of due to downtime was reported out at 14,000. She had a BNP of 800. The patient is EKG showed sinus tachycardia with nonspecific ST-T wave changes possibly consistent with inferior lateral ischemia. The patient has no previous history of coronary disease or any significant heart disease. She remotely was evaluated by cardiology after a questionable TIA and was found to have no significant issues. I do not have any results from that evaluation and it appears it did not occur here at [facility]. She did have an echocardiogram done at the time of a hip replacement November 13, 2022. That echo showed normal LV size and function with an EF of 65% with stage II diastolic dysfunction. There were no regional wall motion abnormalities the RV was normal the left atrium was mildly enlarged the right atrium was normal there was no evidence of an ASD. Mitral valve showed mild focal mitral valve calcification and both leaflets the chordae were thickened and there was mild to moderate 1?2+ mitral valve insufficiency. Tricuspid valve did not show any significant disease the aortic valve had mild diffuse calcifications with mild aortic stenosis maximum gradient of 22 mean gradient of 12. There was no pericardial effusion. The patient tolerated her hip replacement without incident. The patient utilizes a wheelchair and ambulates when she does with a cane. The patient does have a history of diabetes with a hemoglobin A1c of 6.9 on her last check. She has a history of hypertension treated with amlodipine. And the patient is on statin therapy. The patient denies having any chest pain she denies any nausea or vomiting with this event. She does report that her concern was progressive shortness of breath to the point that she was struggling to breathe and thus what prompted her coming to the emergency department. She had been started on antibiotics in the ambulatory setting October 13. Her BMI is 49. Currently she is on BiPAP at 40% FiO2 she is 96% saturated with a respiratory rate of 22-27 and a blood pressure of 140?150/70. She denies any chest discomfort at this time she reports that she is feeling much better she is mentating and able to carry on a normal conversation with the BiPAP in place. [facility] Medical History (Updated 10/18/24 @ 08:[address] Joao Ramirez MD) Wears glasses Post-menopausal Thyroid disease Diabetes Uses wheelchair Ambulates with cane Arthritis High cholesterol Back pain TIA (transient ischemic attack) Dietary restriction Non-smoker History of pain when walking History of transesophageal echocardiography (DESTIN) Cardiology follow-up encounter Hypertension Home Medications ?Medication ?Instructions ?Recorded ?Last Taken ?Type amlodipine 10 mg tablet 10 mg PO DAILY 08/31/22 11/19/22 08:00 History atorvastatin 10 mg tablet 10 mg PO QHS 08/31/22 Unknown History glipizide 2.5 mg tablet, extended 2.5 mg PO DAILY 08/31/22 Unknown History release 24 hr levothyroxine 100 mcg tablet 100 mcg PO DAILY 08/31/22 11/19/22 08:00 History (Synthroid) quinapril 40 mg tablet 40 mg PO DAILY 08/31/22 11/19/22 08:00 History amoxicillin 875 mg-potassium 1 tab PO BID 10/17/24 Unknown History clavulanate 125 mg tablet pioglitazone 15 mg-metformin 500 1 tab PO BID 10/17/24 Unknown History mg tablet Allergy/AdvReac Type Severity Reaction Status Date / Time No Known Allergies Allergy Verified 10/17/24 22:45 Surgical History Hx of colonoscopy Hx of cholecystectomy H/O: hysterectomy Social History household members: spouse Smoking Status: Never smoker alcohol intake: never ROS Constitutional Constitutional: Reports as per HPI Eyes Eyes: Reports systems reviewed and no addt'l complaints, except as documented ENT HEENT: Reports systems reviewed and no addt'l complaints, except as documented Cardiovascular Cardiovascular: Reports as per HPI Respiratory/Chest Respiratory/Chest: Reports as per HPI, chest congestion and cough Gastrointestinal Gastrointestinal: Reports as per HPI Genitourinary Genitourinary: Reports as per HPI Musculoskeletal Musculoskeletal: Reports as per HPI Integumentary Integumentary: Reports systems reviewed and no addt'l complaints, except as documented Neurologic Neurologic: Reports as per HPI Psychiatric Psychiatric: Reports systems reviewed and no addt'l complaints, except as documented Endocrine Endocrinology: Reports as per HPI Hematologic/Lymphatic Hematologic/Lymphatic: Reports systems reviewed and no addt'l complaints, except as documented Allergic/Immunologic Allergic/Immunologic: Reports systems reviewed and no addt'l complaints, except as documented Physical Exam Const alert and oriented x3 HEENT head/scalp atraumatic Eyes EOMs intact bilaterally Neck Neck Narrative: Very thick neck with BiPAP in place. Chest Chest Narrative: Increased AP diameter due to body habitus. Very distant breath sounds. Resp Resp Narrative: Patient breathing easily on BiPAP. Auscultation: crackles bilateral base Cardio Cardio Narrative: Very distant heart tones due to body habitus. Rate: regular rate Rhythm: regular rhythm Heart Sounds: S1 normal and S2 normal; Negative for click, gallop or murmur GI soft to palpation Extremity no pedal edema Skin Skin Narrative: Noted hyperpigmentation of healed wounds on both lower extremities in the anterior segments. This was secondary to trauma years ago. Neuro Neuro Narrative: Alert answers questions appropriately Psych mental status grossly normal Risk Stratification Risk Stratification Applicable: Yes Age >/= 65: Yes >/= 3 CAD Risk Factors (HTN, HLD, DM, family hx of CAD, or current smoker): Yes Aspirin Use in the Past 7 Days: No Severe Angina (>/= episodes in 24 hours): No EKG ST Changes >/= 0.5mm: No Positive Cardiac Marker: Yes LYNETTE Risk Stratification Score: 3 LYNETTE % Risk: 13% Risk Charges/Coding Visit Charges Inpatient E&M: 08382 Init Hosp L3 Objective Data Vital Signs: Vital Signs Temp Pulse Resp BP Pulse Ox O2 Del Method O2 Flow Rate 97.7 F L 89 22 H 144/69 H 97 Bi-pap 15 10/18/24 00:53 10/18/24 00:53 10/18/24 00:53 10/18/24 00:53 10/18/24 00:53 10/17/24 23:30 10/17/24 22:49 FiO2 40 10/17/24 23:17 Oxygen Flow Rate (L/min) 15 Oxygen Delivery Method Bi-pap Weight: 256 lb 9.889 oz Body Mass Index (BMI) 50.1 Intake & Output: Intake and Output for Last 24 Hours 10/16/24 10/17/24 10/18/24 23:59 23:59 23:59 Intake Total 76.67 / 76.67 873.33 / 873.33 Balance 76.67 / 76.67 873.33 / 873.33 Lab / Micro Data Attestation: I reviewed the patient's lab results. 10/17/24 22:56 10/17/24 22:56 Labs: Laboratory Results - last 24 hr 10/17/24 22:56: WBC 17.7 H, RBC 4.10 L, Hgb 11.8 L, Hct 38.5, MCV 93.9, MCH 28.8, MCHC 30.6 L, RDW Std Deviation 50.4 H, RDW Coeff of Leif 14.7 H, Plt Count 469 H, MPV 9.2, Immature Gran % (Auto) 2.600 H, Neut % (Auto) 83.4 H, Lymph % (Auto) 10.9 L, [place]ville % (Auto) 2.8, Eos % (Auto) 0.0, Baso % (Auto) 0.3, Absolute Neuts (auto) 14.8 H, Absolute Lymphs (auto) 1.93, Nucleated RBC % 0.6, Sodium 142, Potassium 5.4 H, Chloride 111 H, Carbon Dioxide 20.0 L, Anion Gap 11, BUN 47 H, Creatinine 1.71 H, Estim Creat Clear Calc 34.85, Est GFR (MDRD) Af Amer 38 L, Est GFR (MDRD) Non-Af 31 L, BUN/Creatinine Ratio 27.5 H, Glucose 405 H, L actic Acid 4.9 H*, Calcium 9.0, Total Bilirubin 0.50, Direct Bilirubin 0.22, AST 27, ALT 33, Alkaline Phosphatase 91, Troponin I High Sens 1103 H*, B-Natriuretic Peptide 799.9 H, Total Protein 7.9, Albumin 3.8, Globulin 4.1 10/18/24 00:45: Troponin I High Sens 1119 H* Micro: Microbiology 10/17/24 23:10 Mucosa - Nasopharyngeal SARS-CoV-2, Influenza & RSV (PCR) - Final ABG Data ABG results: ABG 10/17/24 23:15 Specimen Type ART Sample Site L Radial pH 7.24 L Bicarbonate Actual 19.1 L Total CO2 20 Base Excess -8 L O2 Saturation 94 L O2 % 40.0 ABG pCO2 44.7 ABG pO2 84 Gavino Test Positive Respiration Rate 14 O2 Delivery Device BiPAP Vent Mode NIV Clinical Comments 28/04 14 40% Rhythm Strip Rhythm Strip: Sinus Rhythm Rate: 85 Cardiology Labs/Tests 10/17/24 22:56: WBC 17.7 H, RBC 4.10 L, Hgb 11.8 L, Hct 38.5, MCV 93.9, MCH 28.8, MCHC 30.6 L, Plt Count 469 H, MPV 9.2, Immature Gran % (Auto) 2.600 H, N eut % (Auto) 83.4 H, Lymph % (Auto) 10.9 L, Granville % (Auto) 2.8, Eos % (Auto) 0.0, Baso % (Auto) 0.3, Absolute Neuts (auto) 14.8 H, Nucleated RBC % 0.6, Sodium 142, Potassium 5.4 H, Chloride 111 H, Carbon Dioxide 20.0 L, Anion Gap 11, BUN 47 H, Creatinine 1.71 H, Est GFR (MDRD) Af Amer 38 L, Est GFR (MDRD) Non-Af 31 L , BUN/Creatinine Ratio 27.5 H, Glucose 405 H, Lactic Acid 4.9 H*, Calcium 9.0, Total Bilirubin 0.50, Direct Bilirubin 0.22, B-Natriuretic Peptide 799.9 H 10/17/24 23:15: pH 7.24 L, Bicarbonate Actual 19.1 L, Base Excess -8 L, O2 Saturation 94 L, ABG pCO2 44.7, ABG pO2 84, Gavino Test Positive Rhythm: EKG: ECHO: Stress Test: Cardiac Cath: PCI: CT Surgery: Holter monitor: EPS: PPM: CXR: Chest CT Scan: Radiography Diagnostic Testing: Radiology Impression Chest X-Ray 10/17/24 22:49 IMPRESSION: 1. Diffuse ill-defined pulmonary opacities are similar to the prior examination which may be secondary to edema and/or multifocal pneumonia. Possible small bilateral pleural effusions. 2. Cardiomegaly and/or pericardial effusion. Electronically Signed: Sean Navarrete DO at 23:14 EST , Chest CT 10/18/24 00:40 IMPRESSION: 1. Small moderate size bilateral pleural effusions with bibasilar compressive atelectasis versus airspace consolidation 2. Diffuse nodular groundglass infiltration noted throughout the remaining aerated segments, likely infectious in etiology 3. Reactive mediastinal and hilar lymph nodes. Electronically Signed: Jorge Garza MD at 2:25 EST , EKG Follow-up EKG: Attestation: I personally reviewed and interpreted this EKG as follows: (Normal sinus rhythm at 70 bpm with sinus arrhythmia. Minor nonspecific ST-T wave changes much less impressive than the EKG on presentation in the ER. This is not consistent with a STEMI.)
--- NOTE | 2024-10-18 08:10 | PCM.PN.HOSP ---
Reason for Visit Reason for Visit: Diagnoses Sepsis, unspecified organism (10/18/24) Type 2 diabetes mellitus without complications (10/18/24) Morbid (severe) obesity due to excess calories (10/18/24) Pure hypercholesterolemia, unspecified (10/18/24) Acidosis, unspecified (10/18/24) Hyperkalemia (10/18/24) Essential (primary) hypertension (10/18/24) Pneumonia, unspecified organism (10/18/24) Acute respiratory failure with hypoxia (10/18/24) Acute kidney failure, unspecified (10/18/24) Other specified abnormal findings of blood chemistry (10/18/24) Body mass index [BMI] 45.0-49.9, adult (10/18/24) Subjective Subjective Patient is a 74-year-old lady who has been treated for pneumonia as outpatient presented to the emergency department with worsening shortness of breath Objective Data Objective Data Vital Signs: Vital Signs Temp Pulse Resp BP Pulse Ox O2 Del Method O2 Flow Rate 97.2 F L 77 18 161/74 H 95 Bi-pap 15 10/18/24 02:00 10/18/24 07:00 10/18/24 07:00 10/18/24 07:00 10/18/24 07:00 10/18/24 07:00 10/17/24 22:49 FiO2 30 10/18/24 07:00 Oxygen Flow Rate (L/min) 15 Oxygen Delivery Method Bi-pap Weight: 116.4 kg Body Mass Index (BMI) 50.1 Intake & Output: Intake and Output for Last 24 Hours 10/16/24 10/17/24 10/18/24 23:59 23:59 23:59 Intake Total 76.67 / 76.67 873.33 / 873.33 Balance 76.67 / 76.67 873.33 / 873.33 Lab / Micro Data 10/17/24 22:56 10/17/24 22:56 Labs: Laboratory Results - last 24 hr 10/17/24 22:56: WBC 17.7 H, RBC 4.10 L, Hgb 11.8 L, Hct 38.5, MCV 93.9, MCH 28.8, MCHC 30.6 L, RDW Std Deviation 50.4 H, RDW Coeff of Leif 14.7 H, Plt Count 469 H, MPV 9.2, Immature Gran % (Auto) 2.600 H, Neut % (Auto) 83.4 H, Lymph % (Auto) 10.9 L, Teller % (Auto) 2.8, Eos % (Auto) 0.0, Baso % (Auto) 0.3, Absolute Neuts (auto) 14.8 H, Absolute Lymphs (auto) 1.93, Nucleated RBC % 0.6, Sodium 142, Potassium 5.4 H, Chloride 111 H, Carbon Dioxide 20.0 L, Anion Gap 11, BUN 47 H, Creatinine 1.71 H, Estim Creat Clear Calc 34.85, Est GFR (MDRD) Af Amer 38 L, Est GFR (MDRD) Non-Af 31 L, BUN/Creatinine Ratio 27.5 H, Glucose 405 H, Lactic Acid 4.9 H*, Calcium 9.0, Total Bilirubin 0.50, Direct Bilirubin 0.22, AST 27, ALT 33, Alkaline Phosphatase 91, Troponin I High Sens 1103 H*, B-Natriuretic Peptide 799.9 H, Total Protein 7.9, Albumin 3.8, Globulin 4.1 10/18/24 00:45: Troponin I High Sens 1119 H* Micro: Microbiology 10/17/24 23:10 Mucosa - Nasopharyngeal SARS-CoV-2, Influenza & RSV (PCR) - Final ABG Data ABG results: ABG 10/17/24 23:15 Specimen Type ART Sample Site L Radial pH 7.24 L Bicarbonate Actual 19.1 L Total CO2 20 Base Excess -8 L O2 Saturation 94 L O2 % 40.0 ABG pCO2 44.7 ABG pO2 84 Gavino Test Positive Respiration Rate 14 O2 Delivery Device BiPAP Vent Mode NIV Clinical Comments 14 14 40% Radiography Diagnostic Testing: Radiology Impression Chest X-Ray 10/17/24 22:49 IMPRESSION: 1. Diffuse ill-defined pulmonary opacities are similar to the prior examination which may be secondary to edema and/or multifocal pneumonia. Possible small bilateral pleural effusions. 2. Cardiomegaly and/or pericardial effusion. Electronically Signed: Sean Navarrete DO at 23:14 EST , Chest CT 10/18/24 00:40 IMPRESSION: 1. Small moderate size bilateral pleural effusions with bibasilar compressive atelectasis versus airspace consolidation 2. Diffuse nodular groundglass infiltration noted throughout the remaining aerated segments, likely infectious in etiology 3. Reactive mediastinal and hilar lymph nodes. Electronically Signed: Jorge Garza MD at 2:25 EST , Rhythm Strip Rhythm Strip: Sinus Rhythm Rate: 85 Physical Exam Narrative GENERAL: cooperative but dyspneic at rest HEENT: Atraumatic; normocephalic EYES; Anicteric, Normal Conjunctiva NECK; supple, normal thyroid, RESPIRATORY: Diminished to auscultation CARDIOVASCULAR: Regular S1 S2, GI: soft, normoactive bowel sounds, : No Renal angle tenderness; EXTREMITIES: edema, no clubbing, MUSCULOSKELETAL: no muscle wasting NEURO: Awake; no lateralizing signs. SKIN: No Rash PSYCH; Flat affect Const Constitutional Narrative: Patient appears morbidly obese and acutely ill but comfortable on BiPAP at this time. Resp Resp Narrative: Labored respirations noted with increased work of breathing and diminished lung sounds throughout with scattered wheezes. Cardio Cardio Narrative: Tachycardia noted. GI GI Narrative: Morbidly obese. Extremity Extremity Narrative: 1+ symmetrical bilateral lower extremity edema noted Skin Skin Narrative: Patient has no evidence of rash, abscess or jaundice. Assessment & Plan Assessment/Plan (1) Sepsis: QUALIFIERS: Sepsis acute organ dysfunction status: without acute organ dysfunction Sepsis type: sepsis due to unspecified organism Qualified Code(s): A41.9 - Sepsis, unspecified organism (2) Pneumonia: QUALIFIERS: Laterality: right Lung location: unspecified part of lung Pneumonia type: due to unspecified organism Qualified Code(s): J18.9 - Pneumonia, unspecified organism (3) Acute hypoxemic respiratory failure: (4) JOSUE (acute kidney injury): (5) Metabolic acidosis: (6) Hyperkalemia: (7) Elevated troponin: PLAN: Plan Patient is a 74-year-old lady who has been treated for pneumonia as outpatient presented to the emergency department with worsening shortness of breath 1. Acute hypoxic respiratory failure ? Secondary to combination of pneumonia and congestive heart failure. Patient was found to be significantly hypoxic on admission saturating 70% on room air. Patient placed on noninvasive ventilation admitted to the intensive care unit for further management 2. Pneumonia with suspected multidrug-resistant organism ? Imaging studies obtained on admission came back consistent with multifocal pneumonia. Patient was placed on supplemental oxygen started on broad-spectrum antibiotic therapy with Zosyn and vancomycin cultures sent we will follow-up on the result 3. Sepsis ? Secondary to pneumonia patient was managed per protocol. Response to therapy being monitored with serial lactic acid levels 4. Acute on chronic congestive heart failure with preserved ejection fraction ? Echo from 11/13/2022 demonstrated EF of 65%. Patient has been admitted to monitored bed managed with diuretic therapy, strict input and output, daily weight, low-sodium diet with repeat echo ordered. 5. Acute non-STEMI ?Troponin on admission was 799. Patient started on heparin drip, dual antiplatelet therapy with aspirin and Plavix added statin therapy and consultation placed to cardiology, subsequent management deferred 6. Acute kidney injury ? Creatinine from 06/28/2024 was 1.13 creatinine on admission was 1.71 7. Diabetes mellitus type II -patient's oral hypoglycemics held. Placed on long acting insulin, Accu-Cheks a.c. and at bedtime and covered with sliding scale insulin 8. Hypothyroidism ? Patient is on levothyroxine home dose continued 9. Hypertension ? Blood pressure controlled, home medications continued with dose adjustment as needed #10. Morbid obesity with BMI of 50.1 ? Complicating care weight loss advised 11. Dyslipidemia ?Patient is on statin therapy, continued at home dose 12. DVT prophylaxis ? On heparin Time spent in the patient's overall evaluation,decision-making process, review of diagnostic data, adjustment of management, discussion with other providers, nursing nursing and ancillary staff involved in patient's care documentation, 55 Minutes Charges/Coding Visit Charges Inpatient E&M: 94582 Subs Hosp L3
[2024-10-18 08:36] LABS: International Normalized Ratio 1.1; Partial Thromboplast Time 21.6 Seconds (24.1-36.2); Prothrombin Time (Protime)PT. 13.8 SECONDS (11.7-14.9)
[2024-10-18 08:37] LABS: D-Dimer Quantitative (DVT/PE) 0.98 FEU/ug/m (0.27-0.49)
[2024-10-18 09:31] LABS: Partial Thromboplast Time 50.4 Seconds (24.1-36.2)
[2024-10-18 09:44] LABS: Troponin-I HS 14969 pg/mL (3.0-54.0)
[2024-10-18 10:03] LABS: Troponin-I HS 29586 pg/mL (3.0-54.0)
--- NOTE | 2024-10-18 10:15 | PCM.RX.CS ---
Consult Antibiotic Management Pharmacy has been consulted to manage selected antibiotic: Vancomycin Type of Intervention Type of Consult: New start Suspected Infection Suspected Infection: Sepsis Prior Doses of Antibiotics Prior Doses of Antibiotics Received/Current Regimen: 10/18/24 @ 0240 2000MG given to patient Labs Labs: Sodium 142 mmol/L (136-145) 10/17/24 22:56 Potassium 5.4 mmol/L (3.5-5.1) H 10/17/24 22:56 Chloride 111 mmol/L (98-107) H 10/17/24 22:56 Carbon Dioxide 20.0 mmol/L (21.0-32.0) L 10/17/24 22:56 Anion Gap 11 (5-15) 10/17/24 22:56 BUN 47 mg/dL (7-18) H 10/17/24 22:56 Creatinine 1.71 mg/dL (0.55-1.02) H 10/17/24 22:56 Est GFR (MDRD) Af Amer 38 mL/min (>60) L 10/17/24 22:56 Est GFR (MDRD) Non-Af 31 mL/min (>60) L 10/17/24 22:56 BUN/Creatinine Ratio 27.5 RATIO (10-20) H 10/17/24 22:56 Glucose 405 mg/dL (74-106) H 10/17/24 22:56 Microbiology Microbiology: Microbiology 10/17/24 23:10 Mucosa - Nasopharyngeal SARS-CoV-2, Influenza & RSV (PCR) - Final Dosing Weight Weight used for dosin.5 kg Estimated Creatinine Clearance Estimated Creatinine Clearance: 35 Goal Trough Goal Trough: 15-20 mcg/mL Pharmacy Plan for Drug Dosing Pharmacy Plan for Drug Dosinmg every 24 hours starting 10/19/24 @ 0230 Pharmacy Service will continue to monitor and adjust dosing as required. Follow-Up Labs Follow-Up Labs: Trough: Vancomycin Date/Time Labs Ordered Labs to be done on [date and time ordered]: 10/21/24 @ 0200
[2024-10-18 10:28] LABS: Lactic Acid 4.1 mmol/L (0.4-1.9)
--- NOTE | 2024-10-18 10:57 | CASEMGMT ---
RN ANIYAH Assessment Face to Face with patient for initial transition planning/care coordination assessment. RN ANIYAH introduced self and role at [facility], pt voices understanding. Pt is A&Ox4 and is resting comfortably in bed and is calm. Pt is currently on BiPAP therapy but is able to answer this RN CM questions for assessment. Care providers, pharmacy, and demographics verified. Admitting dx: PNA with sepsis with Acute Hypoxic RF LACE Strata: 2 PCP: Donal Castle Specialists: Kate (Ortho) Preferred Pharmacy: [facility] Insurance: [place] [facility] Prescription Benefit: Yes LNOK: Kd Pool (H), Faustino Pool (Son) Living Arrangements: Pt lives with her in a single story home with 3 steps to enter ADLs/IADLs: Reports ind. Pt has not been OOB yet. Transportation: Self, DME: Pt is currently requiring additional oxygen and may qualify for home oxygen use. A verbal list of local in-network DME companies were provided to the pt at this time. Pt prefers [employer]. Pt states that she had a sleep study completed 5-6 years ago and did not qualify for a PAP at the time. Pt also has access to a cane, W/C, and FWW. Pt has a walk-in shower and shower chair. HHC/SNF: Denies HH or SNF Hx. Pt has been to [facility] for OP Tx. Pt?s goal: Return to PLOF and return home Plan: Anticipate DC home with pt once medically ready, follow for oxygen needs. Current 6-click score is 18. Pt states that she is independent and will not need HHC or OP Tx. Pt states that she feels safe returning home with her once she is medically ready for DC and denies further needs at this time. CM to continue to follow. Elver Chavez RN, CM
[2024-10-18] MEDS: Aspirin 81 MG TAB.CHEW PO (11:45)
[2024-10-18] MEDS: Levothyroxine 100 MCG Tablet PO (11:45)
[2024-10-18] MEDS: Clopidogrel Bisulfate 75 MG Tablet PO (11:45)
[2024-10-18 11:56] LABS: Mucous, Urine 0 SEEN /hpf (<or=2+); Red Blood Cells-Urine 0 SEEN /hpf (0-5); Squamous Epithelial Cells - UA 0 SEEN /hpf (5-10)
[2024-10-18 12:03] LABS: Color, Urine Yellow (Yellow); Glucose, Dipstick 50 mg/dl (Normal); Ketone-Dipstick 5 mg/dl (Negative); Leukocyte Esterase-Dipstick 25 /ul (Negative); Nitrite-Dipstick Negative (Negative); Occult Blood-Urine Negative /ul (Negative); Protein-Dipstick 100 mg/dl (Negative); Specific Gravity, Urine 1.025 (1.002-1.030); Urine Clarity Cloudy (Clear); Urine Urobilinogen 1 mg/dl (Normal)
[2024-10-18 12:44] LABS: Urine Bilirubin Dipstick 1 mg/dL (Negative)
--- NOTE | 2024-10-18 12:45 | EX.PCM.CONCC ---
Assessment & Plan Assessment/Plan (1) Acute hypoxemic respiratory failure: PLAN: Plan RECOMMENDATIONS: 1. Supplemental oxygen to maintain saturations at or above 90%. 2. Recommend empiric BiPAP therapy with naps and nightly. 3. Continue empiric antimicrobials. 4. Check respiratory viral panel. 5. Aggressive blood pressure control. 6. Encourage incentive spirometer use and mobilize patient as tolerated. IMPRESSIONS: 1. Acute hypoxemic respiratory failure Clinical concern for multifactorial etiology, including underlying pneumonia and decompensated heart failure with preserved ejection fraction. In addition, I do suspect that the patient was likely retaining fluid due to her corticosteroid administration on an outpatient basis. The patient has been placed on antimicrobial therapy and responded avidly to noninvasive positive pressure ventilatory support. She has since been weaned to nasal cannula oxygen at 3 L/min and appears comfortable. I would recommend rechecking her renal function profile, and if improved, consider gentle diuresis. 2. Sepsis The patient presented to the hospital with sepsis due to possible pneumonia with acute sepsis related organ dysfunction as evidenced by lactic acidemia and acute respiratory failure requiring noninvasive positive pressure ventilatory support. The patient remains hemodynamically stable on appropriate broad-spectrum antimicrobial therapy. Continue current supportive measures. 3. Acute kidney injury Possibly prerenal in etiology. Awaiting cardiac workup at the present time. Recommend rechecking renal function profile today. 4. History of super morbid obesity/diabetes mellitus/hypertension/hypothyroidism Complicates care, management, recovery and prognosis. Resume home medications as indicated. This note was generated with [employer] dictation software. It may contain incorrect words, spelling, and punctuation that were not noted in checking the note before signing. HPI Consult Data Date of Consult: 10/18/24 HPI Narrative Reason for Consultation: Pneumonia HPI Narrative: The patient is a 74-year-old female, with a history as outlined below, who presented to the emergency department on October 17 with progressive shortness of breath. The patient had a chest x-ray done at the end of September which demonstrated interstitial infiltrates, for which she was initiated on antimicrobial therapy by her PCP. In addition, for reasons that are not entirely clear to me, the patient was placed on a 5-day course of prednisone as well. The patient denied any pre-existing lung conditions, including COPD or asthma. She did report that after being placed on the prednisone, she noticed that her clothes were no longer fitting and that she was retaining fluid. While she does have a cough, she has been unable to produce sputum. The patient denied a history of obstructive sleep apnea. On presentation to the emergency department, the patient was documented to be afebrile and hypertensive. She was also notably tachycardic and tachypneic. Laboratory evaluation revealed an elevated white blood cell count to 17,000. Platelet count was elevated at 469,000. Initial ABG demonstrated a pH of 7.24 with a pCO2 of 44 and pO2 of 84. Chemistry profile was notable for a potassium of 5.4, chloride of 111, bicarbonate of 20 and creatinine of 1.71. Glucose was elevated at 405. Lactate was elevated at 4.9. Troponin was increased at 1103 with a BNP of 800. The patient was subsequently placed on antibiotics and BiPAP therapy. She was admitted to the medical intensive care unit for further management. The patient's echocardiogram from earlier today demonstrated evidence of diastolic dysfunction with hypokinesis of the inferior wall of the LV. Ejection fraction was estimated to be 40 to 45%. Pulmonary artery systolic pressure was estimated to be 70 mmHg. [facility] Medical History (Updated 10/18/24 @ 08:[address] Joao Ramirez MD) Wears glasses Post-menopausal Thyroid disease Diabetes Uses wheelchair Ambulates with cane Arthritis High cholesterol Back pain TIA (transient ischemic attack) Dietary restriction Non-smoker History of pain when walking History of transesophageal echocardiography (DESTIN) Cardiology follow-up encounter Hypertension Home Medications ?Medication ?Instructions ?Recorded ?Last Taken ?Type amlodipine 10 mg tablet 10 mg PO DAILY 08/31/22 11/19/22 08:00 History atorvastatin 10 mg tablet 10 mg PO QHS 08/31/22 Unknown History glipizide 2.5 mg tablet, extended 2.5 mg PO DAILY 08/31/22 Unknown History release 24 hr levothyroxine 100 mcg tablet 100 mcg PO DAILY 08/31/22 11/19/22 08:00 History (Synthroid) quinapril 40 mg tablet 40 mg PO DAILY 08/31/22 11/19/22 08:00 History amoxicillin 875 mg-potassium 1 tab PO BID 10/17/24 Unknown History clavulanate 125 mg tablet pioglitazone 15 mg-metformin 500 1 tab PO BID 10/17/24 Unknown History mg tablet Allergy/AdvReac Type Severity Reaction Status Date / Time No Known Allergies Allergy Verified 10/17/24 22:45 Surgical History Hx of colonoscopy Hx of cholecystectomy H/O: hysterectomy Social History household members: spouse Smoking Status: Never smoker alcohol intake: never ROS ROS Narrative 10 systems were reviewed with pertinent positives as noted in the HPI above. Physical Exam Const alert, oriented x3 and no apparent distress Constitutional Narrative: Morbidly obese. Sitting upright in bed. HEENT normocephalic, head/scalp atraumatic and moist oral mucous membranes Eyes PERRL, EOMs intact bilaterally and conjunctivae normal Neck supple General: trachea midline Chest inspection of chest normal Resp Effort and Inspection: tachypneic Auscultation: diminished lung sounds Cardio regular rate and regular rhythm GI normal to inspection, nondistended, normoactive bowel sounds Extremity General Extremity: edema bilateral lower extremity; Negative for clubbing Skin no rashes or lesions noted Neuro CN's II-XII intact bilaterally, moves all extremities and no focal motor deficits Psych cooperative and affect normal Lab / Micro Data 10/17/24 22:56 10/17/24 22:56 Labs: Laboratory Results - last 24 hr 10/17/24 22:56: WBC 17.7 H, RBC 4.10 L, Hgb 11.8 L, Hct 38.5, MCV 93.9, MCH 28.8, MCHC 30.6 L, RDW Std Deviation 50.4 H, RDW Coeff of Leif 14.7 H, Plt Count 469 H, MPV 9.2, Immature Gran % (Auto) 2.600 H, Neut % (Auto) 83.4 H, Lymph % (Auto) 10.9 L, [place] % (Auto) 2.8, Eos % (Auto) 0.0, Baso % (Auto) 0.3, Absolute Neuts (auto) 14.8 H, Absolute Lymphs (auto) 1.93, Nucleated RBC % 0.6, Sodium 142, Potassium 5.4 H, Chloride 111 H, Carbon Dioxide 20.0 L, Anion Gap 11, BUN 47 H, Creatinine 1.71 H, Estim Creat Clear Calc 34.85, Est GFR (MDRD) Af Amer 38 L, Est GFR (MDRD) Non-Af 31 L, BUN/Creatinine Ratio 27.5 H, Glucose 405 H, Lactic Acid 4.9 H*, Calcium 9.0, Total Bilirubin 0.50, Direct Bilirubin 0.22, AST 27, ALT 33, Alkaline Phosphatase 91, Troponin I High Sens 1103 H*, B-Natriuretic Peptide 799.9 H, Total Protein 7.9, Albumin 3.8, Globulin 4.1 10/18/24 00:45: Troponin I High Sens 1119 H* 10/18/24 00:55: PT 13.8, INR 1.1, APTT 21.6 L, D-Dimer Quant (PE/DVT) 0.98 H* 10/18/24 02:30: Lactic Acid 4.1 H* 10/18/24 05:35: Troponin I High Sens 55081 H*, TSH 0.224 L 10/18/24 08:45: APTT 50.4 H, Troponin I High Sens 17597 H* Micro: Microbiology 10/18/24 11:50 Urine, Random Legionella Antigen - Final 10/18/24 11:50 Urine, Random Streptococcus pneumoniae Antigen (M - Final 10/17/24 23:10 Mucosa - Nasopharyngeal SARS-CoV-2, Influenza & RSV (PCR) - Final ABG Data ABG results: ABG 10/17/24 23:15 Specimen Type ART Sample Site L Radial pH 7.24 L Bicarbonate Actual 19.1 L Total CO2 20 Base Excess -8 L O2 Saturation 94 L O2 % 40.0 ABG pCO2 44.7 ABG pO2 84 Gavino Test Positive Respiration Rate 14 O2 Delivery Device BiPAP Vent Mode NIV Clinical Comments 28/04 14 40% Rhythm Strip Rhythm Strip: Sinus Rhythm Rate: 85 Imaging Radiology Impression Chest X-Ray 10/17/24 22:49 IMPRESSION: 1. Diffuse ill-defined pulmonary opacities are similar to the prior examination which may be secondary to edema and/or multifocal pneumonia. Possible small bilateral pleural effusions. 2. Cardiomegaly and/or pericardial effusion. Electronically Signed: Sean Navarrete DO at 23:14 EST , Chest CT 10/18/24 00:40 IMPRESSION: 1. Small moderate size bilateral pleural effusions with bibasilar compressive atelectasis versus airspace consolidation 2. Diffuse nodular groundglass infiltration noted throughout the remaining aerated segments, likely infectious in etiology 3. Reactive mediastinal and hilar lymph nodes. Electronically Signed: Jorge Garza MD at 2:25 EST , Charges/Coding Visit Charges Inpatient E&M: 24772 Init Hosp L3
[2024-10-18 12:52] LABS: Amorphous Sediment 1+; Bacteria 2+ /hpf (None Seen); Transitional Epithelial - Ur 5-10 SEEN /hpf (0-5); White Blood Cells 10-25 SEEN /hpf (0-5)
[2024-10-18] MEDS: Lactobacillis Acidophilus 1 CAP PO ×3 (13:09→22:22)
[2024-10-18 13:59] LABS: ALB/GLOB Ratio 0.9 RATIO (0.9-2.4); AST(SGOT) 89 U/L (15-37); Alanine Aminotransfer ALT/SGPT 36 U/L (13-56); Albumin, Serum 3.1 g/dL (3.2-5.0); Alkaline Phosphatase 74 U/L (45-117); Anion Gap 9 (5-15); BUN 47 mg/dL (7-18); BUN/Creat Ratio 32.2 RATIO (10-20); Calcium,Total 8.7 mg/dL (8.5-10.1); Chloride 113 mmol/L (98-107); Creatinine, Serum 1.46 mg/dL (0.55-1.02); EST Glomerular Filtration Rate 37 mL/min (>60); Est Glom Filt Rate - Afr Amer 45 mL/min (>60); Estimated Creatinine Clearance 39.42 ml/min; Globulin 3.6 g/dL (2.2-4.2); Glucose 248 mg/dL (74-106); Potassium 5.1 mmol/L (3.5-5.1); Protein, Total 6.7 g/dL (6.4-8.2); Sodium Level 143 mmol/L (136-145)
[2024-10-18 16:40] LABS: Bedside Glucose 166 mg/dL (74-106)
[2024-10-18] MEDS: Ascorbic Acid 500 MG Tablet 1000 MG PO ×2 (16:43→16:44)
[2024-10-18] MEDS: hydrALAZINE 20 MG/ML Vial 10 MG IV (23:34)
[2024-10-19] VITALS (8 sets, daily range): BP systolic 132–145; BP diastolic 63–71; PULSE 83–93; RESP 18–28; TEMP 36.2–36.9; O2SAT 92–95; BMI 51.2
--- NOTE | 2024-10-19 00:37 | CPS ---
Patient unable to tolerate bipap pressures. Switched to CPAP 10 for patient compliance.
[2024-10-19] MEDS: Vancomycin HCl 1,500 MG in 0.9% Normal Saline (500mL Bag) 500 ML 250 MG IV (02:58)
[2024-10-19] MEDS: Levothyroxine 100 MCG Tablet PO (06:31)
[2024-10-19] MEDS: Piperacil/Tazobactam 3.375 GM in 0.9% Normal Saline (50mL MB+) 50 ML IV ×3 (06:35→22:33)
[2024-10-19 06:37] LABS: Absolute Lymphocyte Count 2.22 X10^3/uL (0.83-4.51); Basophil# 0.02 X10^3/uL; Basophil% 0.2 % (0-1); Eosinophil# 0.16 X10^3/uL; Eosinophils% 1.3 % (0-5); Hematocrit 32.4 % (37-47); Hemoglobin 10.1 g/dL (12.0-15.0); Lymphocyte # 2.22 X10^3/ul (0.83-4.51); Lymphocyte % 17.8 % (19-41); Mean Corp Hgb Conc 31.2 g/dL (32-36); Mean Corpuscular Hgb 28.8 pg (27.0-32.0); Mean Corpuscular Volume 92.3 fL (81-99); Mean Platelet Vol. 9.3 fl (6.2-12.0); Monocyte# 0.94 X10^3/uL; Monocyte% 7.5 % (0-10); NRBC Flagged by Analyzer 0.5 % (0-5); Neutrophil # 8.99 X10^3/uL (2.7-7.7); Neutrophil % 71.8 % (47-70); Platelet Count 337 K/mm3 (150-450); RBC Distribution Width CV 14.9 % (11.6-14.6); RBC Distribution Width SD 49.6 fl (35.1-43.9); Red Blood Count 3.51 M/mm3 (4.2-5.4); White Blood Count 12.5 K/mm3 (4.4-11.0)
[2024-10-19 06:54] LABS: Anion Gap 9 (5-15); BUN 35 mg/dL (7-18); BUN/Creat Ratio 27.6 RATIO (10-20); Calcium,Total 8.7 mg/dL (8.5-10.1); Chloride 111 mmol/L (98-107); Creatinine, Serum 1.27 mg/dL (0.55-1.02); EST Glomerular Filtration Rate 44 mL/min (>60); Est Glom Filt Rate - Afr Amer 53 mL/min (>60); Glucose 149 mg/dL (74-106); Magnesium 2.3 mg/dL (1.6-2.6); Phosphorus 2.7 mg/dL (2.5-4.9); Potassium 4.4 mmol/L (3.5-5.1); Sodium Level 142 mmol/L (136-145)
[2024-10-19 07:16] LABS: Bedside Glucose 145 mg/dL (74-106)
--- NOTE | 2024-10-19 08:48 | PCM.PN.HOSP ---
Reason for Visit Reason for Visit: Diagnoses Sepsis, unspecified organism (10/18/24) Type 2 diabetes mellitus without complications (10/18/24) Morbid (severe) obesity due to excess calories (10/18/24) Pure hypercholesterolemia, unspecified (10/18/24) Acidosis, unspecified (10/18/24) Hyperkalemia (10/18/24) Essential (primary) hypertension (10/18/24) Pneumonia, unspecified organism (10/18/24) Acute respiratory failure with hypoxia (10/18/24) Acute kidney failure, unspecified (10/18/24) Other specified abnormal findings of blood chemistry (10/18/24) Body mass index [BMI] 45.0-49.9, adult (10/18/24) Subjective Subjective Patient seen still remains dyspneic at rest and with activity. Objective Data Objective Data Vital Signs: Vital Signs Temp Pulse Resp BP Pulse Ox O2 Del Method O2 Flow Rate 98.0 F 84 20 H 145/63 H 95 Nasal Cannula 5 10/19/24 03:00 10/19/24 03:00 10/19/24 03:00 10/19/24 03:00 10/19/24 03:00 10/19/24 05:13 10/19/24 05:13 FiO2 35 10/19/24 00:06 Oxygen Flow Rate (L/min) 5 Oxygen Delivery Method Nasal Cannula Weight: 119.2 kg Body Mass Index (BMI) 51.2 Intake & Output: Intake and Output for Last 24 Hours 10/17/24 10/18/24 10/19/24 23:59 23:59 23:59 Intake Total 76.67 / 76.67 1667.18 / 1667.18 680 / 680 Output Total 200 / 200 0 / 0 Balance 76.67 / 76.67 1467.18 / 1467.18 680 / 680 Lab / Micro Data 10/19/24 05:59 10/19/24 05:59 Labs: Laboratory Results - last 24 hr 10/18/24 02:30: Lactic Acid 4.1 H* 10/18/24 05:35: Troponin I [place] Sens 30905 H*, TSH 0.224 L 10/18/24 08:45: APTT 50.4 H, Sodium 143, Potassium 5.1, Chloride 113 H, Carbon Dioxide 21.0, Anion Gap 9, BUN 47 H, Creatinine 1.46 H, Estim Creat Clear Calc 39.42, Est GFR (MDRD) Af Amer 45 L, Est GFR (MDRD) Non-Af 37 L, BUN/Creatinine Ratio 32.2 H, Glucose 248 H, Calcium 8.7, Total Bilirubin 0.60, AST 89 H, ALT 36, Alkaline Phosphatase 74, Troponin I High Sens 30996 H*, Total Protein 6.7, Albumin 3.1 L, Globulin 3.6, Albumin/Globulin Ratio 0.9 10/18/24 11:50: Urine Color Yellow, Urine Clarity Cloudy, Urine pH 5.0, Ur Specific [place] 1.025, Urine Protein 100 H, Urine Glucose (UA) 50 H, Urine Ketones 5 H, Urine Occult Blood Negative, Urine Nitrite Negative, Urine Bilirubin 1 H, Urine Urobilinogen 1 H, Ur Leukocyte Esterase 25 H, Urine RBC 0 SEEN, Urine WBC 10-25 SEEN, Ur Squamous Epith Cells 0 SEEN, Ur Transition Epith Cell 5-10 SEEN, Amorphous Sediment 1+, Urine Bacteria 2+, Urine Mucus 0 SEEN 10/18/24 16:19: POC Glucose 166 H 10/19/24 05:59: WBC 12.5 H, RBC 3.51 L, Hgb 10.1 L, Hct 32.4 L, MCV 92.3, MCH 28.8, MCHC 31.2 L, RDW Std Deviation 49.6 H, RDW Coeff of Leif 14.9 H, Plt Count 337, MPV 9.3, Immature Gran % (Auto) 1.400 H, Neut % (Auto) 71.8 H, Lymph % (Auto) 17.8 L, [place] % (Auto) 7.5, Eos % (Auto) 1.3, Baso % (Auto) 0.2, Absolute Neuts (auto) 9.0 H, Absolute Lymphs (auto) 2.22, Nucleated RBC % 0.5, Sodium 142, Potassium 4.4, Chloride 111 H, Carbon Dioxide 22.0, Anion Gap 9, BUN 35 H, Creatinine 1.27 H, Estim Creat Clear Calc 46.00, Est GFR (MDRD) Af Amer 53 L, Est GFR (MDRD) Non-Af 44 L, BUN/Creatinine Ratio 27.6 H, Glucose 149 H, Calcium 8.7, Phosphorus 2.7, Magnesium 2.3 10/19/24 06:30: POC Glucose 145 H Micro: Microbiology 10/18/24 17:38 Mucosa - Nasopharyngeal Respiratory Panel (PCR) - Final 10/18/24 11:50 Urine, Random Legionella Antigen - Final 10/18/24 11:50 Urine, Random Streptococcus pneumoniae Antigen (M - Final 10/17/24 23:10 Mucosa - Nasopharyngeal SARS-CoV-2, Influenza & RSV (PCR) - Final Radiography Diagnostic Testing: Radiology Impression Echocardiogram 10/18/24 07:20 Interpretation Summary The estimated ejection fraction is 40-45 %. Hypokinesis of the inferior wall The left atrium is mildly enlarged. Mild-Moderate (1-2+) mitral valve insufficiency. Pulmonary artery systolic pressure is 70 mmHg. Mild aortic stenosis. Ordering Physician: Jad Campos Referring Physician: Donal Castle Performed By: Brittney Jarrett RVT, RDCS and Student Rhythm Strip Rhythm Strip: Sinus Rhythm Rate: 85 Physical Exam Narrative GENERAL: cooperative but dyspneic at rest HEENT: Atraumatic; normocephalic EYES; Anicteric, Normal Conjunctiva NECK; supple, normal thyroid, RESPIRATORY: Diminished to auscultation CARDIOVASCULAR: Regular S1 S2, GI: soft, normoactive bowel sounds, : No Renal angle tenderness; EXTREMITIES: edema, no clubbing, MUSCULOSKELETAL: no muscle wasting NEURO: Awake; no lateralizing signs. SKIN: No Rash PSYCH; Flat affect Assessment & Plan Assessment/Plan (1) Sepsis: QUALIFIERS: Sepsis acute organ dysfunction status: without acute organ dysfunction Sepsis type: sepsis due to unspecified organism Qualified Code(s): A41.9 - Sepsis, unspecified organism (2) Pneumonia: QUALIFIERS: Laterality: right Lung location: unspecified part of lung Pneumonia type: due to unspecified organism Qualified Code(s): J18.9 - Pneumonia, unspecified organism (3) Acute hypoxemic respiratory failure: (4) JOSUE (acute kidney injury): (5) Metabolic acidosis: (6) Hyperkalemia: (7) Elevated troponin: PLAN: Plan Patient is a 74-year-old lady who has been treated for pneumonia as outpatient presented to the emergency department with worsening shortness of breath 1. Acute hypoxic respiratory failure ? Secondary to combination of pneumonia and congestive heart failure. Patient was found to be significantly hypoxic on admission saturating 70% on room air. Patient placed on noninvasive ventilation admitted to the intensive care unit for further management ? 10/19/2024 patient was transferred from intensive care unit to the progressive care unit. Remains on supplemental oxygen 2. Pneumonia with suspected multidrug-resistant organism ? Imaging studies obtained on admission came back consistent with multifocal pneumonia. Patient was placed on supplemental oxygen started on broad-spectrum antibiotic therapy with Zosyn and vancomycin cultures sent we will follow-up on the result 3. Sepsis ? Secondary to pneumonia patient was managed per protocol. Response to therapy being monitored with serial lactic acid levels 4. Acute on chronic congestive heart failure with preserved ejection fraction ? Echo from 11/13/2022 demonstrated EF of 65%. Patient has been admitted to monitored bed managed with diuretic therapy, strict input and output, daily weight, low-sodium diet with repeat echo ordered. 5. Acute non-STEMI ?Troponin on admission was 799. Patient started on heparin drip, dual antiplatelet therapy with aspirin and Plavix added statin therapy and consultation placed to cardiology, subsequent management deferred ? Patient seen in consultation by Dr. Ramirez with cardiology recommended with continuation of conservative management for now with repeat reevaluation in 6 to 12 weeks when patient is medically stable 6. Acute kidney injury ? Creatinine from 06/28/2024 was 1.13 creatinine on admission was 1.71 ? 10/19/2024 creatinine down to 1.2 7 repeat BMP ordered for a.m. 7. Diabetes mellitus type II -patient's oral hypoglycemics held. Placed on long acting insulin, Accu-Cheks a.c. and at bedtime and covered with sliding scale insulin 8. Hypothyroidism ? Patient is on levothyroxine home dose continued 9. Hypertension ? Blood pressure controlled, home medications continued with dose adjustment as needed #10. Morbid obesity with BMI of 50.1 ? Complicating care weight loss advised 11. Dyslipidemia ?Patient is on statin therapy, continued at home dose 12. DVT prophylaxis ? On heparin Time spent in the patient's overall evaluation,decision-making process, review of diagnostic data, adjustment of management, discussion with other providers, nursing nursing and ancillary staff involved in patient's care documentation, 50 Minutes Advance planning; did discuss with the patientregarding advanced directives as well as CODE STATUS. Did explain the various scenarios involved ( FULL CODE, DNR CCA, DNR CCA with no intubation, and DNR CC and what each meant) patient elected to remain full code with CPR and intubation if needed. Order was placed. Time spent on discussion 16 minutes. Charges/Coding Multi Select Codes Visit Charges Visit Charges: [address] [place] [id number] Hospitalists' Procedures Procedures: 31488 Advncd Care Plan 30 Min
--- NOTE | 2024-10-19 09:05 | PCM.PN.CARD ---
Subjective Subjective Patient currently resting comfortably seated in the chair at the bedside. She reports she is feeling much better her blood pressure is markedly improved in fact is hypertensive today. Heart rate is well-controlled. The patient has never had any chest discomfort nausea and vomiting or anything that would suggest coronary ischemia. The patient's echocardiogram shows an EF of 40-45% with some inferior wall hypokinesis. She also has pulmonary artery hypertension with a blood pressure estimated at 70 mmHg range. This probably reflects her pneumonia and resolving sepsis. Objective Data Vital Signs: Vital Signs Temp Pulse Resp BP Pulse Ox O2 Del Method O2 Flow Rate 98.0 F 84 20 H 145/63 H 95 Nasal Cannula 5 10/19/24 03:00 10/19/24 03:00 10/19/24 03:00 10/19/24 03:00 10/19/24 07:30 10/19/24 07:30 10/19/24 07:30 FiO2 35 10/19/24 00:06 Oxygen Flow Rate (L/min) 5 Oxygen Delivery Method Nasal Cannula Weight: 262 lb 12.656 oz Body Mass Index (BMI) 51.2 Intake & Output: Intake and Output for Last 24 Hours 10/17/24 10/18/24 10/19/24 23:59 23:59 23:59 Intake Total 76.67 / 76.67 1667.18 / 1667.18 680 / 680 Output Total 200 / 200 0 / 0 Balance 76.67 / 76.67 1467.18 / 1467.18 680 / 680 Lab / Micro Data Attestation: I reviewed the patient's lab results. 10/19/24 05:59 10/19/24 05:59 Labs: Laboratory Results - last 24 hr 10/18/24 02:30: Lactic Acid 4.1 H* 10/18/24 05:35: Troponin I [place] Sens 28318 H*, TSH 0.224 L 10/18/24 08:45: APTT 50.4 H, Sodium 143, Potassium 5.1, Chloride 113 H, Carbon Dioxide 21.0, Anion Gap 9, BUN 47 H, Creatinine 1.46 H, Estim Creat Clear Calc 39.42, Est GFR (MDRD) Af Amer 45 L, Est GFR (MDRD) Non-Af 37 L, BUN/Creatinine Ratio 32.2 H, Glucose 248 H, Calcium 8.7, Total Bilirubin 0.60, AST 89 H, ALT 36, Alkaline Phosphatase 74, Troponin I High Sens 22674 H*, Total Protein 6.7, Albumin 3.1 L, Globulin 3.6, Albumin/Globulin Ratio 0.9 10/18/24 11:50: Urine Color Yellow, Urine Clarity Cloudy, Urine pH 5.0, Ur Specific [place] 1.025, Urine Protein 100 H, Urine Glucose (UA) 50 H, Urine Ketones 5 H, Urine Occult Blood Negative, Urine Nitrite Negative, Urine Bilirubin 1 H, Urine Urobilinogen 1 H, Ur Leukocyte Esterase 25 H, Urine RBC 0 SEEN, Urine WBC 10-25 SEEN, Ur Squamous Epith Cells 0 SEEN, Ur Transition Epith Cell 5-10 SEEN, Amorphous Sediment 1+, Urine Bacteria 2+, Urine Mucus 0 SEEN 10/18/24 16:19: POC Glucose 166 H 10/19/24 05:59: WBC 12.5 H, RBC 3.51 L, Hgb 10.1 L, Hct 32.4 L, MCV 92.3, MCH 28.8, MCHC 31.2 L, RDW Std Deviation 49.6 H, RDW Coeff of Leif 14.9 H, Plt Count 337, MPV 9.3, Immature Gran % (Auto) 1.400 H, Neut % (Auto) 71.8 H, Lymph % (Auto) 17.8 L, Bartholomew % (Auto) 7.5, Eos % (Auto) 1.3, Baso % (Auto) 0.2, Absolute Neuts (auto) 9.0 H, Absolute Lymphs (auto) 2.22, Nucleated RBC % 0.5, Sodium 142, Potassium 4.4, Chloride 111 H, Carbon Dioxide 22.0, Anion Gap 9, BUN 35 H, Creatinine 1.27 H, Estim Creat Clear Calc 46.00, Est GFR (MDRD) Af Amer 53 L, Est GFR (MDRD) Non-Af 44 L, BUN/Creatinine Ratio 27.6 H, Glucose 149 H, Calcium 8.7, Phosphorus 2.7, Magnesium 2.3 10/19/24 06:30: POC Glucose 145 H Micro: Microbiology 10/18/24 17:38 Mucosa - Nasopharyngeal Respiratory Panel (PCR) - Final 10/18/24 11:50 Urine, Random Legionella Antigen - Final 10/18/24 11:50 Urine, Random Streptococcus pneumoniae Antigen (M - Final Rhythm Strip Rhythm Strip: Sinus Rhythm Rate: 85 Cardiology Labs/Tests 10/18/24 02:30: Lactic Acid 4.1 H* 10/18/24 08:45: APTT 50.4 H, Sodium 143, Potassium 5.1, Chloride 113 H, Carbon Dioxide 21.0, Anion Gap 9, BUN 47 H, Creatinine 1.46 H, Est GFR (MDRD) Af Amer 45 L, Est GFR (MDRD) Non-Af 37 L, BUN/Creatinine Ratio 32.2 H, Glucose 248 H, Calcium 8.7, Total Bilirubin 0.60 10/18/24 11:50: Urine Color Yellow, Urine Clarity Cloudy, Urine pH 5.0, Ur Specific [place] 1.025, Urine Protein 100 H, Urine Glucose (UA) 50 H, Urine Ketones 5 H, Urine Occult Blood Negative, Urine Nitrite Negative, Urine Bilirubin 1 H, Urine Urobilinogen 1 H, Ur Leukocyte Esterase 25 H, Urine RBC 0 SEEN, Urine WBC 10-25 SEEN 10/19/24 05:59: WBC 12.5 H, RBC 3.51 L, Hgb 10.1 L, Hct 32.4 L, MCV 92.3, MCH 28.8, MCHC 31.2 L, Plt Count 337, MPV 9.3, Immature Gran % (Auto) 1.400 H, Neut % (Auto) 71.8 H, Lymph % (Auto) 17.8 L, Bartholomew % (Auto) 7.5, Eos % (Auto) 1.3, Baso % (Auto) 0.2, Absolute Neuts (auto) 9.0 H, Nucleated RBC % 0.5, Sodium 142, Potassium 4.4, Chloride 111 H, Carbon Dioxide 22.0, Anion Gap 9, BUN 35 H, Creatinine 1.27 H, Est GFR (MDRD) Af Amer 53 L, Est GFR (MDRD) Non-Af 44 L, BUN/Creatinine Ratio 27.6 H, Glucose 149 H, Calcium 8.7, Phosphorus 2.7, Magnesium 2.3 Rhythm: EKG: ECHO: Stress Test: Cardiac Cath: PCI: CT Surgery: Holter monitor: EPS: PPM: CXR: Chest CT Scan: Radiography Diagnostic Testing: Radiology Impression Echocardiogram 10/18/24 07:20 Interpretation Summary The estimated ejection fraction is 40-45 %. Hypokinesis of the inferior wall The left atrium is mildly enlarged. Mild-Moderate (1-2+) mitral valve insufficiency. Pulmonary artery systolic pressure is 70 mmHg. Mild aortic stenosis. Ordering Physician: Jad Campos Referring Physician: Donal Castle Performed By: Brittney Jarrett RVT, RDCS and Student Physical Exam Const alert and oriented x3 HEENT normocephalic Eyes EOMs intact bilaterally Neck no JVD Neck Narrative: Thick neck. Chest inspection of chest normal Resp normal respiratory effort Cardio regular rate and regular rhythm Extremity no pedal edema Neuro Neuro Narrative: Alert and oriented x 3 Psych mental status grossly normal Assessment & Plan Assessment/Plan (1) Elevated troponin: PLAN: Patient is elevated troponins are highly likely to be related to her sepsis she was profoundly hypoxic and acidotic with a lactic acid of 4.9 on presentation this is consistent with hypoperfusion and has been associated with elevated troponins without primary cardiac ischemia. The patient does have some mild wall motion abnormality inferior wall and this will need to be reevaluated with a follow-up echocardiogram after she is discharged and back in a stable environment in 6 to 12 weeks. If the patient's wall motion abnormality persist then further ischemic evaluation would be indicated in the ambulatory setting. (2) JOSUE (acute kidney injury): PLAN: The patient's acute kidney injury is probably related to her sepsis and pneumonia. She does not have a history of diabetes. I would defer institution of BRETT inhibitor or ARB therapy until she is at baseline for her renal function. At that time her home BRETT inhibitor should be reinstituted. (3) High cholesterol: PLAN: Patient's lipids are managed by the primary service she is on atorvastatin in her home environment which should be reinstituted at their discretion. (4) Sepsis: QUALIFIERS: Sepsis type: sepsis due to unspecified organism Sepsis acute organ dysfunction status: without acute organ dysfunction Qualified Code(s): A41.9 - Sepsis, unspecified organism PLAN: Her sepsis appears to have resolved. She is up in the room without restrictions. Further evaluation and treatment of her pneumonia will be deferred to the primary service. 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 (6) Hypertension: QUALIFIERS: Hypertension type: primary hypertension Qualified Code(s): I10 - Essential (primary) hypertension PLAN: Patient's blood pressures have recovered she is now hypertensive. I recommend given her mild LV dysfunction that we utilize Coreg 3.125 mg titrated up to 12-1/2 mg as tolerated for blood pressure and heart rate control. This is in lieu of the amlodipine and I would defer institution of the BRETT inhibitor until her renal status stabilizes. This will then need to be checked closely with repeat basic metabolic panel after reinstitution of BRETT inhibitor in the ambulatory setting. The patient can be followed up in the [facility] office at her discretion. She can also follow-up with her primary service for hypertensive management. (7) LV dysfunction: PLAN: Patient has minimal LV dysfunction EF estimated 40-45% in the face of sepsis and pneumonia. She did have some mild regional wall motion abnormality in the distribution of the inferior wall. I would recommend we treat this as noted above with Coreg and addition of an BRETT inhibitor as renal function will tolerate. She has no signs or symptoms of congestive heart failure. The patient's echocardiogram should be repeated as a limited echo focused on her pulmonary hypertension and LV function in 6 weeks. (8) Pulmonary hypertension: PLAN: The patient's pulmonary hypertension is probably exacerbated by her pneumonia and sepsis. She is also morbidly obese she was previously tested for obstructive sleep apnea and told she did not meet the criteria. Following recovery from her pneumonia and sepsis recommend repeat an echocardiogram at 6 weeks for better baseline evaluation of her pulmonary pressures. PLAN: Plan 1. Reinstitute antihypertensive therapy starting with Coreg 3.125 mg twice daily and titrate to blood pressure and heart rate response. 2. Would avoid BRETT inhibitor at this point in time until renal function reaches baseline. 3. Once renal functions at baseline would reinstitute her home BRETT inhibitor therapy. 4. Unless needed for antihypertensive control would avoid amlodipine at this time. 5. Patient should follow-up in the [facility] office in 3 to 4 weeks. 6. Will obtain a limited echocardiogram looking at the pulmonary artery pressures and LV function in 6 weeks. Charges/Coding Visit Charges Inpatient E&M: 41419 [facility] Hosp L3
[2024-10-19] MEDS: Clopidogrel Bisulfate 75 MG Tablet PO (09:21)
[2024-10-19] MEDS: Cholecalciferol (Vit D3) 125 MCG CAPSULE (5,000 UNITS) PO (09:21)
[2024-10-19] MEDS: Lactobacillis Acidophilus 1 CAP PO ×4 (09:21→22:32)
[2024-10-19] MEDS: Aspirin 81 MG TAB.CHEW PO (09:22)
[2024-10-19] MEDS: Zinc Sulfate 50 mg zinc (220 mg) ORAL capsule PO (09:22)
[2024-10-19] MEDS: Insulin Lispro 100 UNIT/ML INSULN.PEN SC ×2 (11:33→17:06)
[2024-10-19 13:01] LABS: Bedside Glucose 177 mg/dL (74-106)
--- NOTE | 2024-10-19 15:14 | CHAPLAIN ---
Type of Pastoral Visit _x__ Initial Visit ___ Follow-up Visit ___ On-call Visit ___ General Patient Visit ___ Spiritual Assessment ___ Family Conference ___ Bereavement ___ Rapid Response ___ Code Blue ___ Other (describe below) Pastoral Care Referral From _x__ Patient ___ Family ___ Nurse ___ Physician ___ Dial Equipment Engineer ___ Conservation Coordinator ___ Other (describe below) Sacrament/Intervention _x__ Active listening ___ Anointing ___ Zoroastrian ___ Bereavement ___ Communion ___ Allison exploration ___ ___ Life review ___ Prayer ___ Reconciliation ___ Sacrament of Sick ___ Supportive presence ___ Wedding ___ Other (describe below) Pastoral Comments patient and spouse are in the room; pt states that she is doing much better now; pt gives description of her illness and presentation to the ED; pt denies any needs or concerns at this time
[2024-10-19 16:42] LABS: Bedside Glucose 150 mg/dL (74-106)
[2024-10-19] MEDS: Ascorbic Acid 500 MG Tablet 1000 MG PO (17:06)
[2024-10-19] MEDS: 0.9% Saline Lock 10 ML Syringe IV (22:41)
--- NOTE | 2024-10-19 23:12 | CPS ---
Offered CPAP to pt for the night. Pt declined.
[2024-10-19 23:18] LABS: Bedside Glucose 134 mg/dL (74-106)
[2024-10-20] VITALS (9 sets, daily range): BP systolic 123–175; BP diastolic 48–84; PULSE 67–91; RESP 16–20; TEMP 36.4–36.9; O2SAT 87–99; BMI 50.3
[2024-10-20] MEDS: Vancomycin HCl 1,500 MG in 0.9% Normal Saline (500mL Bag) 500 ML 250 MG IV (02:47)
[2024-10-20] MEDS: Levothyroxine 100 MCG Tablet PO (06:35)
[2024-10-20] MEDS: Piperacil/Tazobactam 3.375 GM in 0.9% Normal Saline (50mL MB+) 50 ML IV ×3 (06:41→21:53)
[2024-10-20 07:01] LABS: Bedside Glucose 114 mg/dL (74-106)
--- NOTE | 2024-10-20 07:29 | PN.HOSP_ITS ---
Reason for Visit Reason for Visit: Diagnoses Sepsis, unspecified organism (10/18/24) Type 2 diabetes mellitus without complications (10/18/24) Morbid (severe) obesity due to excess calories (10/18/24) Pure hypercholesterolemia, unspecified (10/18/24) Acidosis, unspecified (10/18/24) Hyperkalemia (10/18/24) Essential (primary) hypertension (10/18/24) Pulmonary hypertension, unspecified (10/18/24) Heart disease, unspecified (10/18/24) Pneumonia, unspecified organism (10/18/24) Acute respiratory failure with hypoxia (10/18/24) Acute kidney failure, unspecified (10/18/24) Other specified abnormal findings of blood chemistry (10/18/24) Body mass index [BMI] 45.0-49.9, adult (10/18/24) Subjective Subjective Patient seen improving clinically. Plan is to attempt to wean patient off oxygen Objective Data Objective Data Vital Signs: Vital Signs Temp Pulse Resp BP Pulse Ox O2 Del Method O2 Flow Rate 97.5 F L 78 20 H 159/74 H 94 Nasal Cannula 2 10/20/24 02:40 10/20/24 02:40 10/20/24 02:40 10/20/24 02:40 10/20/24 02:40 10/20/24 02:44 10/20/24 02:44 FiO2 35 10/19/24 00:06 Oxygen Flow Rate (L/min) 2 Oxygen Delivery Method Nasal Cannula Weight: 116.8 kg Body Mass Index (BMI) 50.3 Intake & Output: Intake and Output for Last 24 Hours 10/18/24 10/19/24 10/20/24 23:59 23:59 23:59 Intake Total 1667.18 / 1667.18 1810 / 1810 660 / 660 Output Total 200 / 200 300 / 300 0 / 0 Balance 1467.18 / 1467.18 1510 / 1510 660 / 660 Lab / Micro Data 10/20/24 07:19 10/20/24 07:19 Labs: Laboratory Results - last 24 hr 10/19/24 11:29: POC Glucose 177 H 10/19/24 16:23: POC Glucose 150 H 10/19/24 22:31: POC Glucose 134 H 10/20/24 06:34: POC Glucose 114 H Micro: Microbiology 10/18/24 02:30 Blood Culture (Wb) - Anticubital Right Blood Culture - Preliminary No growth in 48 hours. 10/18/24 00:55 Blood Culture (Wb) - Anticubital Left Blood Culture - Preliminary No growth in 48 hours. 10/18/24 17:38 Mucosa - Nasopharyngeal Respiratory Panel (PCR) - Final 10/18/24 11:50 Urine, Random Legionella Antigen - Final 10/18/24 11:50 Urine, Random Streptococcus pneumoniae Antigen (M - Final 10/17/24 23:10 Mucosa - Nasopharyngeal SARS-CoV-2, Influenza & RSV (PCR) - Final Rhythm Strip Rhythm Strip: Sinus Rhythm Rate: 85 Physical Exam Narrative GENERAL: cooperative but dyspneic at rest HEENT: Atraumatic; normocephalic EYES; Anicteric, Normal Conjunctiva NECK; supple, normal thyroid, RESPIRATORY: Diminished to auscultation CARDIOVASCULAR: Regular S1 S2, GI: soft, normoactive bowel sounds, : No Renal angle tenderness; EXTREMITIES: edema, no clubbing, MUSCULOSKELETAL: no muscle wasting NEURO: Awake; no lateralizing signs. SKIN: No Rash PSYCH; Flat affect Assessment & Plan Assessment/Plan (1) Sepsis: QUALIFIERS: Sepsis acute organ dysfunction status: without acute organ dysfunction Sepsis type: sepsis due to unspecified organism Qualified Code(s): A41.9 - Sepsis, unspecified organism (2) Pneumonia: QUALIFIERS: Laterality: right Lung location: unspecified part of lung Pneumonia type: due to unspecified organism Qualified Code(s): J18.9 - Pneumonia, unspecified organism (3) Acute hypoxemic respiratory failure: (4) JOSUE (acute kidney injury): (5) Metabolic acidosis: (6) Hyperkalemia: (7) Elevated troponin: PLAN: Plan Patient is a 74-year-old lady who has been treated for pneumonia as outpatient presented to the emergency department with worsening shortness of breath 1. Acute hypoxic respiratory failure ? Secondary to combination of pneumonia and congestive heart failure. Patient was found to be significantly hypoxic on admission saturating 70% on room air. Patient placed on noninvasive ventilation admitted to the intensive care unit for further management ? 10/19/2024 patient was transferred from intensive care unit to the progressive care unit. Remains on supplemental oxygen ? 10/20/2024 patient remains on supplemental oxygen plan is to wean patient off oxygen 2. Pneumonia with suspected multidrug-resistant organism ? Imaging studies obtained on admission came back consistent with multifocal pneumonia. Patient was placed on supplemental oxygen started on broad-spectrum antibiotic therapy with Zosyn and vancomycin cultures sent we will follow-up on the result 3. Sepsis ? Secondary to pneumonia patient was managed per protocol. Response to therapy being monitored with serial lactic acid levels 4. Acute on chronic congestive heart failure with preserved ejection fraction ? Echo from 11/13/2022 demonstrated EF of 65%. Patient has been admitted to monitored bed managed with diuretic therapy, strict input and output, daily weight, low-sodium diet with repeat echo ordered. 5. Acute non-STEMI ?Troponin on admission was 799. Patient started on heparin drip, dual antiplatelet therapy with aspirin and Plavix added statin therapy and consultation placed to cardiology, subsequent management deferred ? Patient seen in consultation by Dr. Ramirez with cardiology recommended with continuation of conservative management for now with repeat reevaluation in 6 to 12 weeks when patient is medically stable 6. Acute kidney injury ? Creatinine from 06/28/2024 was 1.13 creatinine on admission was 1.71 ? 10/19/2024 creatinine down to 1.2 7 repeat BMP ordered for a.m. 7. Diabetes mellitus type II -patient's oral hypoglycemics held. Placed on long acting insulin, Accu-Cheks a.c. and at bedtime and covered with sliding scale insulin 8. Hypothyroidism ? Patient is on levothyroxine home dose continued 9. Hypertension ? Blood pressure controlled, home medications continued with dose adjustment as needed #10. Morbid obesity with BMI of 50.1 ? Complicating care weight loss advised 11. Dyslipidemia ?Patient is on statin therapy, continued at home dose 12. DVT prophylaxis ? On heparin Time spent in the patient's overall evaluation,decision-making process, review of diagnostic data, adjustment of management, discussion with other providers, nursing nursing and ancillary staff involved in patient's care documentation, 37 Minutes Charges/Coding Visit Charges Inpatient E&M: 38216 [facility] Hosp L2
[2024-10-20 08:10] LABS: Absolute Lymphocyte Count 2.09 X10^3/uL (0.83-4.51); Absolute Neutrophil Count 6.9 X10^3/uL (2.0-7.7); Basophil# 0.02 X10^3/uL; Basophil% 0.2 % (0-1); Eosinophil# 0.45 X10^3/uL; Eosinophils% 4.4 % (0-5); Hematocrit 33.3 % (37-47); Hemoglobin 10.1 g/dL (12.0-15.0); Lymphocyte # 2.09 X10^3/ul (0.83-4.51); Lymphocyte % 20.3 % (19-41); Mean Corp Hgb Conc 30.3 g/dL (32-36); Mean Corpuscular Hgb 28.6 pg (27.0-32.0); Mean Corpuscular Volume 94.3 fL (81-99); Mean Platelet Vol. 9.1 fl (6.2-12.0); Monocyte# 0.73 X10^3/uL; Monocyte% 7.1 % (0-10); NRBC Flagged by Analyzer 0.2 % (0-5); Neutrophil # 6.94 X10^3/uL (2.7-7.7); Neutrophil % 67.1 % (47-70); Platelet Count 298 K/mm3 (150-450); RBC Distribution Width CV 14.9 % (11.6-14.6); RBC Distribution Width SD 51.3 fl (35.1-43.9); Red Blood Count 3.53 M/mm3 (4.2-5.4); White Blood Count 10.3 K/mm3 (4.4-11.0)
[2024-10-20 08:36] LABS: Anion Gap 6 (5-15); BUN 26 mg/dL (7-18); BUN/Creat Ratio 24.3 RATIO (10-20); Calcium,Total 8.6 mg/dL (8.5-10.1); Chloride 114 mmol/L (98-107); Creatinine, Serum 1.07 mg/dL (0.55-1.02); EST Glomerular Filtration Rate 53 mL/min (>60); Est Glom Filt Rate - Afr Amer 64 mL/min (>60); Glucose 118 mg/dL (74-106); Potassium 4.1 mmol/L (3.5-5.1); Sodium Level 144 mmol/L (136-145)
[2024-10-20] MEDS: Aspirin 81 MG TAB.CHEW PO (09:17)
[2024-10-20] MEDS: Lactobacillis Acidophilus 1 CAP PO ×4 (09:17→21:53)
[2024-10-20] MEDS: Cholecalciferol (Vit D3) 125 MCG CAPSULE (5,000 UNITS) PO (09:17)
[2024-10-20] MEDS: Clopidogrel Bisulfate 75 MG Tablet PO (09:17)
[2024-10-20] MEDS: Ascorbic Acid 500 MG Tablet 1000 MG PO ×2 (09:17→17:12)
[2024-10-20] MEDS: Zinc Sulfate 50 mg zinc (220 mg) ORAL capsule PO (09:18)
[2024-10-20] MEDS: Furosemide 20 MG Tablet PO ×2 (14:54→18:17)
[2024-10-20 17:32] LABS: Bedside Glucose 144 mg/dL (74-106)
[2024-10-20 17:32] LABS: Bedside Glucose 144 mg/dL (74-106)
[2024-10-20] MEDS: Insulin Lispro 100 UNIT/ML INSULN.PEN SC (21:56)
[2024-10-20 23:17] LABS: Bedside Glucose 156 mg/dL (74-106)
[2024-10-21 02:41] LABS: Vancomycin, Trough Level 11.7 ug/mL (5.0-15.0)
--- NOTE | 2024-10-21 03:17 | PCM.RX.CS ---
Consult Antibiotic Management Pharmacy has been consulted to manage selected antibiotic: Vancomycin Type of Intervention Type of Consult: Follow-up Suspected Infection Suspected Infection: Sepsis and Pneumonia Labs Labs: Sodium 144 mmol/L (136-145) 10/20/24 07:19 Potassium 4.1 mmol/L (3.5-5.1) 10/20/24 07:19 Chloride 114 mmol/L (98-107) H 10/20/24 07:19 Carbon Dioxide 24.0 mmol/L (21.0-32.0) 10/20/24 07:19 Anion Gap 6 (5-15) 10/20/24 07:19 BUN 26 mg/dL (7-18) H 10/20/24 07:19 Creatinine 1.07 mg/dL (0.55-1.02) H 10/20/24 07:19 Est GFR (MDRD) Af Amer 64 mL/min (>60) 10/20/24 07:19 Est GFR (MDRD) Non-Af 53 mL/min (>60) L 10/20/24 07:19 BUN/Creatinine Ratio 24.3 RATIO (10-20) H 10/20/24 07:19 Glucose 118 mg/dL (74-106) H 10/20/24 07:19 Vancomycin Trough 11.7 ug/mL (5.0-15.0) 10/21/24 02:06 Microbiology Microbiology: Microbiology 10/18/24 02:30 Blood Culture (Wb) - Anticubital Right Blood Culture - Preliminary No growth in 48 hours. 10/18/24 00:55 Blood Culture (Wb) - Anticubital Left Blood Culture - Preliminary No growth in 48 hours. 10/18/24 17:38 Mucosa - Nasopharyngeal Respiratory Panel (PCR) - Final 10/18/24 11:50 Urine, Random Legionella Antigen - Final 10/18/24 11:50 Urine, Random Streptococcus pneumoniae Antigen (M - Final 10/17/24 23:10 Mucosa - Nasopharyngeal SARS-CoV-2, Influenza & RSV (PCR) - Final Dosing Weight Weight used for dosin.8 kg Estimated Creatinine Clearance Estimated Creatinine Clearance: 54 Goal Trough Goal Trough: 15-20 mcg/mL Pharmacy Plan for Drug Dosing Pharmacy Plan for Drug Dosing: Vancomycin trough level of 11.7, drawn 23.3hrs post-dose, was below the target range of 15-20. Per dosing calculator, a new dose of 2000mg q24h should give an estimated trough of 15.5. Will initiate now and draw another trough level prior to the third dose of the new regimen. Pharmacy Service will continue to monitor and adjust dosing as required. Follow-Up Labs Follow-Up Labs: Trough: Vancomycin Date/Time Labs Ordered Labs to be done on [date and time ordered]: 10/23/24 @0300
[2024-10-21 03:53] VITALS: BMI 50.3
[2024-10-21] MEDS: Vancomycin HCl 2,000 MG in 0.9% Normal Saline (500mL Bag) 500 ML 250 MG IV (03:55)
[2024-10-21 04:00] VITALS: BP 163/72; PULSE 76; RESP 18; TEMP 36.3; O2SAT 97
[2024-10-21 06:45] LABS: Absolute Lymphocyte Count 1.86 X10^3/uL (0.83-4.51); Basophil# 0.03 X10^3/uL; Basophil% 0.3 % (0-1); Eosinophil# 0.46 X10^3/uL; Eosinophils% 4.1 % (0-5); Hematocrit 33.4 % (37-47); Hemoglobin 10.2 g/dL (12.0-15.0); Lymphocyte # 1.86 X10^3/ul (0.83-4.51); Lymphocyte % 16.6 % (19-41); Mean Corp Hgb Conc 30.5 g/dL (32-36); Mean Corpuscular Hgb 28.5 pg (27.0-32.0); Mean Corpuscular Volume 93.3 fL (81-99); Mean Platelet Vol. 9.1 fl (6.2-12.0); Monocyte# 0.81 X10^3/uL; Monocyte% 7.2 % (0-10); NRBC Flagged by Analyzer 0 % (0-5); Neutrophil # 7.95 X10^3/uL (2.7-7.7); Neutrophil % 70.9 % (47-70); Platelet Count 313 K/mm3 (150-450); RBC Distribution Width CV 14.6 % (11.6-14.6); Red Blood Count 3.58 M/mm3 (4.2-5.4); White Blood Count 11.2 K/mm3 (4.4-11.0)
[2024-10-21] MEDS: Piperacil/Tazobactam 3.375 GM in 0.9% Normal Saline (50mL MB+) 50 ML IV (06:49)
[2024-10-21] MEDS: Levothyroxine 100 MCG Tablet PO (06:51)
[2024-10-21 07:09] LABS: Anion Gap 7 (5-15); BUN 21 mg/dL (7-18); BUN/Creat Ratio 18.3 RATIO (10-20); Calcium,Total 8.8 mg/dL (8.5-10.1); Chloride 111 mmol/L (98-107); Creatinine, Serum 1.15 mg/dL (0.55-1.02); EST Glomerular Filtration Rate 49 mL/min (>60); Est Glom Filt Rate - Afr Amer 59 mL/min (>60); Estimated Creatinine Clearance 50.15 ml/min; Glucose 123 mg/dL (74-106); Potassium 3.7 mmol/L (3.5-5.1); Sodium Level 143 mmol/L (136-145)
[2024-10-21 07:16] LABS: Bedside Glucose 125 mg/dL (74-106)
[2024-10-21] MEDS: Ascorbic Acid 500 MG Tablet 1000 MG PO (09:38)
[2024-10-21] MEDS: Furosemide 20 MG Tablet PO ×2 (09:38)
[2024-10-21] MEDS: Lactobacillis Acidophilus 1 CAP PO (09:38)
[2024-10-21] MEDS: Cholecalciferol (Vit D3) 125 MCG CAPSULE (5,000 UNITS) PO (09:39)
[2024-10-21] MEDS: Carvedilol 6.25 MG Tablet PO (09:41)
[2024-10-21] MEDS: Aspirin 81 MG TAB.CHEW PO (09:42)
[2024-10-21 10:00] VITALS: BP 144/52; PULSE 75; RESP 18; TEMP 36.6; O2SAT 100
[2024-10-21 10:07] VITALS: O2SAT 95
[2024-10-21 11:02] VITALS: O2SAT 91; O2SAT 95
[2024-10-21] MEDS: Insulin Lispro 100 UNIT/ML INSULN.PEN SC (11:36)
--- NOTE | 2024-10-21 11:37 | DCINST_ITS ---
Discharge Instructions Diet Discharge Diet: 4000 mg Sodium Diet and Carb Control Diet DC O2, CPAP, BIPAP needs RN Home O2 Qualification: Home O2 Qualification: Is the patient on home oxygen No 10/21/24 11:02 Home O2 Qualification: AT REST 1- Pulse Ox at rest 95 10/21/24 11:02 2- Pulse Ox at rest 93 10/20/24 11:23 2- Oxygen Flow Rate at rest 2 10/20/24 11:23 Home O2 Qualification: WITH AMBULATION 1- Pulse Ox with ambulation 91 10/21/24 11:02 1- Oxygen Flow Rate with 0 10/21/24 11:02 ambulation PSN CPAP & BiPAP: BiPAP & CPAP Settings per PSN Mode CPAP 10/19/24 23:12 Bipap Delivery Device Face Mask 10/19/24 02:23 BiPAP Inspiratory Pressure 14 10/18/24 23:03 BiPAP Expiratory Pressure 10 10/19/24 02:23 BiPAP Rate 14 10/18/24 23:03 Fraction of Inspired Oxygen ( 35 10/19/24 00:06 FIO2) Additional Home O2 Discharge instructions: No Dressing / Incision Discharge Activity: No Restrictions Follow Up Care Test Results: Test results from this visit will be discussed in further detail at your follow- up appointment, if applicable. Discharge Plan Admission Admit Date/Time: 10/18/24 00:29 Primary Reason for Your Visit: Shortness of breath Attending Provider: Seth Garnica Primary Care Provider: Donal Castle Consulting Providers: Jad Campos; Laura Donahue; Jagjit Dominguez; Kj Olvera; Ramone Adams; Ruth Ann Mendez; Joao Ramirez; Bandar Linares; Abelardo Cannon; Sean Pitts; Man Lainez NP; Janene Renner; Jad Herrera Instructions Additional Instructions / Restrictions: ? Please start taking carvedilol twice daily and Lasix twice daily for high blood pressure and heart failure ? Restart quinapril at lower dose of 20 mg daily for high blood pressure ? Start taking a baby aspirin daily for heart disease ? Take Augmentin for 3 days to complete a 7-day course of antibiotics for your pneumonia ? Stop taking amlodipine for high blood pressure ? Continue all other home medications as normal ? Please call the cardiology office to schedule a follow-up appointment in the next 4 to 6 weeks Discharge Orders/Prescriptions Prescriptions: New carvedilol 6.25 mg Tablet 6.25 mg PO BIDCM 30 Days Qty: 60 2RF aspirin 81 mg Tablet,Chewable 81 mg PO DAILYCM 90 Days Qty: 90 0RF furosemide 20 mg Tablet 20 mg PO BIDLX 30 Days Qty: 60 2RF amoxicillin-pot clavulanate 875-125 mg tablet 1 tab PO BID 3 Days Qty: 6 0RF Continued levothyroxine [Synthroid] 100 mcg tablet 100 mcg PO DAILY atorvastatin 10 mg tablet 10 mg PO QHS glipizide 2.5 mg tablet extended release 24hr 2.5 mg PO DAILY pioglitazone-metformin 15-500 mg tablet 1 tab PO BID Changed quinapril 40 mg tablet 20 mg PO DAILY 30 Days Qty: 60 2RF Discontinued amlodipine 10 mg tablet 10 mg PO DAILY amoxicillin-pot clavulanate 875-125 mg tablet 1 tab PO BID Referrals / Follow Up: Donal Castle MD [Primary Care Provider] - Ramone Adams MD [Med Staff - Active Staff] - Disposition Disposition (needs filled in before D/C Order can be placed): Home, Self Care
--- NOTE | 2024-10-21 11:37 | PCM.DC.SUM ---
Providers Date of Admission: 10/18/24 Date of Discharge: 10/21/24 Primary Care Physician: Donal Castle MD Consultations 10/18/24 00:55 Consult: Cardiology Routine Consulting Provider: Jane Borrego Reason for Consult: NSTEMI EMERGENT Consult: No Notified: Yes Date Notified: 10/18/24 Time Notified: 00:38 Method of Notification: Verbal Method of Consult:: In-Person Comments:: Dr. Ramirez evaluated Consult: Lining Cutter / Pulmonary Medicine Routine Consulting Provider: Intensivists/Pulmonary Med Reason for Consult: PNA with Sepsis and Acute Hypoxic Respiratory Failure. EMERGENT Consult: No Notified: Yes Date Notified: 10/18/24 Time Notified: 00:34 Method of Notification: Text Reason For Visit: PNA WITH SEPSIS WITH ACUTE HYPOXIC RESPIRATORY Diagnosis Discharge Diagnosis (1) Sepsis: Status: Acute Code(s): A41.9 - Sepsis, unspecified organism Qualifiers: Sepsis acute organ dysfunction status: without acute organ dysfunction Sepsis type: sepsis due to unspecified organism Qualified Code(s): A41.9 - Sepsis, unspecified organism (2) Pneumonia: Status: Acute Code(s): J18.9 - Pneumonia, unspecified organism Qualifiers: Laterality: right Lung location: unspecified part of lung Pneumonia type: due to unspecified organism Qualified Code(s): J18.9 - Pneumonia, unspecified organism (3) Acute hypoxemic respiratory failure: Status: Acute Code(s): J96.01 - Acute respiratory failure with hypoxia (4) JOSUE (acute kidney injury): Status: Acute Code(s): N17.9 - Acute kidney failure, unspecified (5) Metabolic acidosis: Status: Acute Code(s): E87.20 - Acidosis, unspecified (6) Hyperkalemia: Status: Acute Code(s): E87.5 - Hyperkalemia (7) Elevated troponin: Status: Acute Code(s): R79.89 - Other specified abnormal findings of blood chemistry Medications at Discharge Home Medications atorvastatin 10 mg tablet 10 mg PO QHS cholesterol 08/31/22 glipizide 2.5 mg tablet, extended release 24 hr 2.5 mg PO DAILY diabetes 08/31/22 levothyroxine 100 mcg tablet (Synthroid) 100 mcg PO DAILY thyroid 08/31/22 pioglitazone 15 mg-metformin 500 mg tablet 1 tab PO BID diabetes 10/17/24 amoxicillin 875 mg-potassium clavulanate 125 mg tablet 1 tab PO BID 3 days #6 tabs 10/21/24 aspirin 81 mg chewable tablet 81 mg PO DAILYCM 90 days #90 tabs 10/21/24 carvedilol 6.25 mg tablet 6.25 mg PO BIDCM 30 days #60 tabs 10/21/24 furosemide 20 mg tablet 20 mg PO BIDLX 30 days #60 tabs 10/21/24 lisinopril 10 mg tablet 10 mg PO DAILY 30 days #30 tabs 10/21/24 Hospital Course Operations None Procedures EKG, Transthoracic echo and - (Chest x-ray, CT chest) Summary of Care Provided Minutes Spent on Discharge: 35 Hospital Course: Patient is a 74-year-old female who presented [facility] ED on 10/18/2024 with worsening shortness of breath. Hospital course as noted below. Patient discharged home in stable condition on 10/21. 1. Acute HFrEF with acute hypoxic respiratory failure, improved ? Cardiology followed. Patient presented with acute respiratory failure requiring BiPAP on admit secondary to volume overload from acute HFrEF and multifocal pneumonia. Echo showed newly reduced EF 40 to 45% with diastolic dysfunction and hypokinesis of the inferior wall along with elevated pulmonary artery systolic pressure of 70 mmHg. Did have elevated troponins with EKG changes as noted below. However given her presentation, cardiology suspected these were due to demand ischemia in setting of sepsis with pneumonia. Significantly improved with IV diuresis during hospitalization and weaned off of supplemental oxygen. Per cardiology, will need follow-up echo in about 6 weeks after discharge and follow-up with cardiology in the office after this. Discharged on Coreg 6.25 mg twice daily, lisinopril 10 mg daily and Lasix 20 mg twice daily. Discontinued amlodipine per cardiology recommendations. 2. Sepsis secondary to multifocal pneumonia ? Met sepsis criteria on admission and had elevated lactic acid of 4.9 in setting of pneumonia. Improved significantly during hospitalization with IV antibiotics and discharged on Augmentin to complete 7-day course of antibiotics total. 3. NSTEMI type II ? Cardiology followed as above. Had troponin trend 1103 > 1119 > 18945 > [address]. Had [address] depressions noted on EKG as well. However suspected secondary to demand ischemia in setting of sepsis from pneumonia per cardiology. Further management after discharge as noted above. 4. JOSUE, resolved ? Creatinine 1.71 on admit, improved back to baseline 1.0 by discharge with IV diuresis. Chronic medical conditions: ? Class III obesity: BMI 50 on admit. Complicated hospital course, care and prognosis. ? Type 2 diabetes mellitus: Treating with sliding scale insulin while inpatient. Okay to resume home glipizide and pioglitazone?metformin on discharge. ? Hypothyroidism: TSH mildly low at 0.22 on admit. Continue home Synthroid. Further adjustments per PCP as needed. ? Hypertension: Discharged on Coreg, Lasix and lisinopril as noted above. ? Hyperlipidemia: Continue home statin. Total clinical time spent by myself addressing the patient's medical issues, reviewing all the data, and collaborating with patient's care team: 35 minutes. Physical Exam Const alert, oriented x3 and no apparent distress Constitutional Narrative: Pleasant elderly female, class III obesity, sitting up comfortably in bed, conversing normally, in no acute distress. General Appearance: cooperative and comfortable HEENT normocephalic, head/scalp atraumatic, hearing grossly normal bilaterally, nasal mucous membranes and turbinates normal and moist oral mucous membranes Eyes PERRL, EOMs intact bilaterally and conjunctivae normal Neck full ROM Chest inspection of chest normal Resp normal respiratory effort, normal air movement, no use of accessory muscles and clear to auscultation bilaterally Cardio regular rate, regular rhythm, no murmurs and peripheral pulses 2+ throughout GI normal to inspection, nondistended, normoactive bowel sounds, soft to palpation, non-tender and non-distended Back/Spine normal ROM Extremity normal to inspection, full ROM and no pedal edema Skin no rashes or lesions noted Psych mental status grossly normal Weight / BMI Weight Weight: 116.8 kg Body Mass Index (BMI) 50.3 ABG / Lab / Microbiology Data 10/21/24 05:50 10/21/24 05:50 Laboratory: Laboratory Results - last 24 hr 10/20/24 11:21: POC Glucose 144 H 10/20/24 17:10: POC Glucose 144 H 10/20/24 21:56: POC Glucose 156 H 10/21/24 02:06: Vancomycin Trough 11.7 10/21/24 05:50: WBC 11.2 H, RBC 3.58 L, Hgb 10.2 L, Hct 33.4 L, MCV 93.3, MCH 28.5, MCHC 30.5 L, RDW Std Deviation 49.0 H, RDW Coeff of Leif 14.6, Plt Count 313, MPV 9.1, Immature Gran % (Auto) 0.900, Neut % (Auto) 70.9 H, Lymph % (Auto) 16.6 L, [place] % (Auto) 7.2, Eos % (Auto) 4.1, Baso % (Auto) 0.3, Absolute Neuts (auto) 8.0 H, Absolute Lymphs (auto) 1.86, Nucleated RBC % 0, Sodium 143, Potassium 3.7, Chloride 111 H, Carbon Dioxide 26.0, Anion Gap 7, BUN 21 H, Creatinine 1.15 H, Estim Creat Clear Calc 50.15, Est GFR (MDRD) Af Amer 59 L, Est GFR (MDRD) Non-Af 49 L, BUN/Creatinine Ratio 18.3, Glucose 123 H, Calcium 8.8 10/21/24 06:54: POC Glucose 125 H Microbiology: Microbiology 10/18/24 02:30 Blood Culture (Wb) - Anticubital Right Blood Culture - Preliminary No growth in 48 hours. 10/18/24 00:55 Blood Culture (Wb) - Anticubital Left Blood Culture - Preliminary No growth in 48 hours. 10/18/24 17:38 Mucosa - Nasopharyngeal Respiratory Panel (PCR) - Final 10/18/24 11:50 Urine, Random Legionella Antigen - Final 10/18/24 11:50 Urine, Random Streptococcus pneumoniae Antigen (M - Final 10/17/24 23:10 Mucosa - Nasopharyngeal SARS-CoV-2, Influenza & RSV (PCR) - Final D/C Instructions DC O2, CPAP, BIPAP Needs RN Home O2 Qualification: Home O2 Qualification: Is the patient on home oxygen No 10/21/24 11:02 Home O2 Qualification: AT REST 1- Pulse Ox at rest 95 10/21/24 11:02 2- Pulse Ox at rest 93 10/20/24 11:23 2- Oxygen Flow Rate at rest 2 10/20/24 11:23 Home O2 Qualification: WITH AMBULATION 1- Pulse Ox with ambulation 91 10/21/24 11:02 1- Oxygen Flow Rate with 0 10/21/24 11:02 ambulation PSN CPAP & BiPAP: BiPAP & CPAP Settings per PSN Mode CPAP 12/05/24 23:12 Bipap Delivery Device Face Mask 10/19/24 02:23 BiPAP Inspiratory Pressure 14 10/18/24 23:03 BiPAP Expiratory Pressure 10 10/19/24 02:23 BiPAP Rate 14 10/18/24 23:03 Fraction of Inspired Oxygen ( 35 10/19/24 00:06 FIO2) Additional Home O2 Discharge instructions: No DC home with Oxygen: No Meaningful Use Info Meaningful Use Meaningful Use Diagnoses (Choose all that apply): CHF CHF BRETT/ARB ordered at discharge?: Yes Documented LVEF (%): 40 Ischemic Stroke Statin Dosing Therapy Reference: STATIN DOSE THERAPY REFERENCE: * Patients > 75 years receive moderate or high dose statin therapy. * Patients 75 years or YOUNGER should receive HIGH intensity statin dose unless contraindicated. You will be required to document reason for non-treatment if statin daily dose does not meet guidelines. HIGH DOSE STATIN THERAPY DAILY Atorvastatin > than or = to 40 mg Rosuvastatin > than or = to 20 mg Amlodipine + Atorvastatin > than or = to 2.5/40 mg Ezetimibe + Simvastatin 10/80 mg Simvastatin 80mg Discharge Plan Admission Admit Date/Time: 10/18/24 00:29 Primary Reason for Your Visit: Shortness of breath Attending Provider: Seth Garnica Primary Care Provider: Donal Castle Consulting Providers: Jad Campos; Laura Donahue; Jagjit Dominguez; Kj Olvera; Ramone Adams; Ruth Ann Mendez; Joao Ramirez; Bandar Linares; Abelardo Cannon; Sean Pitts; Man Lainez NP; Janene Renner; Jad Herrera Instructions Additional Instructions / Restrictions: ? Please start taking carvedilol twice daily and Lasix twice daily for high blood pressure and heart failure ? Restart lisinopril at lower dose of 10 mg daily for high blood pressure ? Start taking a baby aspirin daily for heart disease ? Take Augmentin for 3 days to complete a 7-day course of antibiotics for your pneumonia ? Stop taking amlodipine for high blood pressure ? Continue all other home medications as normal ? Please call the cardiology office to schedule a follow-up appointment in the next 4 to 6 weeks Discharge Orders/Prescriptions Prescriptions: New carvedilol 6.25 mg Tablet 6.25 mg PO BIDCM 30 Days Qty: 60 2RF aspirin 81 mg Tablet,Chewable 81 mg PO DAILYCM 90 Days Qty: 90 0RF furosemide 20 mg Tablet 20 mg PO BIDLX 30 Days Qty: 60 2RF amoxicillin-pot clavulanate 875-125 mg tablet 1 tab PO BID 3 Days Qty: 6 0RF lisinopril 10 mg tablet 10 mg PO DAILY 30 Days Qty: 30 2RF Continued levothyroxine [Synthroid] 100 mcg tablet 100 mcg PO DAILY atorvastatin 10 mg tablet 10 mg PO QHS glipizide 2.5 mg tablet extended release 24hr 2.5 mg PO DAILY pioglitazone-metformin 15-500 mg tablet 1 tab PO BID Discontinued quinapril 40 mg tablet 40 mg PO DAILY amlodipine 10 mg tablet 10 mg PO DAILY amoxicillin-pot clavulanate 875-125 mg tablet 1 tab PO BID Referrals / Follow Up: Donal Castle MD [Primary Care Provider] - Ramone Adams MD [Med Staff - Active Staff] - Disposition Disposition (needs filled in before D/C Order can be placed): Home, Self Care Charges/Coding Visit Charges Inpatient E&M: 29257 Disch Hosp >30min
[2024-10-21 12:28] LABS: Bedside Glucose 176 mg/dL (74-106)
[2024-10-21 14:06] VITALS: BP 137/55; PULSE 65; RESP 18; TEMP 36.7; O2SAT 97
== END 2024-10-21 14:25 | disposition home or self-care (01) | DRG 871 ==
LOC: ED 23:33 → ICU 10-18 00:41 → PCU 10-18 16:16
PROVIDERS: Internal Medicine; Internal Medicine Cardiovascular Disease; Internal Medicine Critical Care Medicine; Admitting Provider Internal Medicine; Emergency Provider Emergency Medicine; PCP Family Medicine; Visit Provider Hospitalist
DX: A41.9 Sepsis, unspecified organism (principal); J18.9 Pneumonia, unspecified organism; J96.01 Acute respiratory failure with hypoxia; I50.21 Acute systolic (congestive) heart failure; I21.A1 Myocardial infarction type 2; Z68.43 Body mass index [BMI] 50.0-59.9, adult; N17.9 Acute kidney failure, unspecified; I27.20 Pulmonary hypertension, unspecified; E87.5 Hyperkalemia; E03.9 Hypothyroidism, unspecified; I11.0 Hypertensive heart disease with heart failure; E66.01 Morbid (severe) obesity due to excess calories; M19.90 Unspecified osteoarthritis, unspecified site; E78.5 Hyperlipidemia, unspecified; Z79.899 Other long term (current) drug therapy; Z79.84 Long term (current) use of oral hypoglycemic drugs; Z86.73 Personal history of transient ischemic attack (TIA), and cerebral infarction without residual deficits
CPT/HCPCS: 36415; 36600; 71045; 71250; 80048; 80053; 80076; 80202; 81001; 82803; 82962; 83605; 83735; 83880; 84100; 84443; 84484; 85025; 85379; 85610; 85730; 87040; 87449; 87631; 87633; 93005; 93306; 94002; 94003; 94640; 94762; 99285; J7030; J7040; A4216; C8929

== ENCOUNTER 2024-10-30 13:53 | Inpatient (IN) | payer MEDICARE, SELFPAY ==
[2024-10-30] VITALS (8 sets, daily range): BP systolic 138–173; BP diastolic 55–93; PULSE 69–92; RESP 15–27; TEMP 36.1–37.1; O2SAT 84–100; BMI 49.6; BMI 47.9
--- NOTE | 2024-10-30 14:30 | ED.VIS.DYS ---
HPI History of Present Illness Chief Complaint: Shortness of Breath Informant: patient Onset/Context/Timing Onset: Weeks Context: gradual Timing: Waxes and wanes Quality: Positive for Dyspnea on exertion and Wheezing Worsened by: Exertion Relieved by: Rest Associated Symptoms Negative for cough, rhinorrhea, post nasal drip, ear pain, fever, sore throat, chills, sweats, clear sputum, white sputum, yellow sputum or green sputum Chest Pain: Positive for None Narrative Narrative: Patient presents with shortness of breath that history has gotten worse over the past few days. Patient states that her symptoms began few weeks ago. Patient states she was admitted to the hospital for pneumonia. Patient states she got better while she was in the hospital but when she was discharged home, her symptoms have gotten worse. Patient states she completed her course of antibiotics. Patient states that she has been wheezing and shortness of breath with exertion. Patient states he gets better with rest. Patient denies any fevers or chills. Patient denies any chest pain. Patient denies any cough. PE Risk Factors: Negative for Cancer, OCP + Smoking + > 35, Prior DVT or PE, Recent immobilization, Recent surgery or Recent travel Prior similar symptoms: Yes Recent Illness/Hospitalization: [facility] Medical History Morbid obesity with BMI of 45.0-49.9, adult Hypertension Diabetes Wears glasses Post-menopausal Thyroid disease Diabetes Uses wheelchair Ambulates with cane Arthritis High cholesterol Back pain TIA (transient ischemic attack) Dietary restriction Non-smoker History of pain when walking History of transesophageal echocardiography (DESTIN) Cardiology follow-up encounter Hypertension Home Medications ?Medication ?Instructions ?Recorded ?Last Taken ?Type atorvastatin 10 mg tablet 10 mg PO QHS cholesterol 08/31/22 Unknown History glipizide 2.5 mg tablet, extended 2.5 mg PO DAILY diabetes 08/31/22 Unknown History release 24 hr levothyroxine 100 mcg tablet 100 mcg PO DAILY thyroid 08/31/22 11/19/22 08:00 History (Synthroid) pioglitazone 15 mg-metformin 500 1 tab PO BID diabetes 10/17/24 Unknown History mg tablet amoxicillin 875 mg-potassium 1 tab PO BID 3 days #6 tabs 10/21/24 Unknown Rx clavulanate 125 mg tablet aspirin 81 mg chewable tablet 81 mg PO DAILYCM 90 days #90 tabs 10/21/24 Unknown Rx carvedilol 6.25 mg tablet 6.25 mg PO BIDCM 30 days #60 tabs 10/21/24 Unknown Rx furosemide 20 mg tablet 20 mg PO BIDLX 30 days #60 tabs 10/21/24 Unknown Rx lisinopril 10 mg tablet 10 mg PO DAILY 30 days #30 tabs 10/21/24 Unknown Rx Allergy/AdvReac Type Severity Reaction Status Date / Time No Known Allergies Allergy Verified 10/30/24 13:54 Surgical History Hx of colonoscopy Hx of cholecystectomy H/O: hysterectomy Social History household members: spouse Smoking Status: Never smoker alcohol intake: never ROS ROS ED Constitutional Constitutional ED: Denies chills or fever(s) Eyes Eyes: Denies blurry vision or change in vision ENT ENT ED: Denies rhinorrhea or sore throat Cardiovascular Cardiovascular: Denies chest pain or palpitations Respiratory/Chest Respiratory/Chest: Reports dyspnea; Denies cough Gastrointestinal Gastrointestinal: Reports nausea; Denies vomiting Genitourinary Genitourinary ED: Denies dysuria or hematuria Musculoskeletal Musculoskeletal: Denies back pain or neck pain Integumentary Denies abscess or rash Neurologic Neurologic: Denies headache(s) or weakness Allergic/Immunologic Allergic/Immunologic ED: Denies mouth swelling or urticaria EXAM Physical Exam Const Vital Signs: 10/30/24 13:54 10/30/24 13:54 10/30/24 14:23 Temperature 96.9 F L 96.9 F L Temperature Source Temporal Temporal Pulse Rate 84 92 Respiratory Rate 15 25 H Respiratory Effort Respiratory Pattern Blood Pressure 155/93 H 173/89 H Blood Pressure Mean 113 117 Pulse Ox 84 100 96 Oxygen Delivery Method Room Air Nasal Cannula Nasal Cannula Oxygen Flow Rate (L/min) 4 4 10/30/24 14:23 10/30/24 14:54 10/30/24 15:06 Temperature Temperature Source Pulse Rate Respiratory Rate Respiratory Effort Short of Breath Labored Respiratory Pattern Tachypnea Blood Pressure 148/73 H Blood Pressure Mean 98 Pulse Ox Oxygen Delivery Method Room Air Oxygen Flow Rate (L/min) 4 10/30/24 15:06 10/30/24 16:06 10/30/24 17:00 Temperature 97.3 F L 97.1 F L 98.2 F Temperature Source Temporal Temporal Oral Pulse Rate 73 76 69 Respiratory Rate 25 H 25 H 20 H Respiratory Effort Respiratory Pattern Blood Pressure 148/73 H 138/68 H 163/55 H Blood Pressure Mean 98 91 91 Pulse Ox 96 95 96 Oxygen Delivery Method Nasal Cannula Room Air Oxygen Flow Rate (L/min) 4 Positive well nourished and well developed General Appearance ED: well developed and NAD HEENT Reports moist mucous membranes atraumatic Neck supple, no meningeal signs and no JVD Resp normal respiratory effort Auscultation: diminished lung sounds Cardio regular rate and regular rhythm GI non-tender and non-distended Palpation: soft Extremity General Extremety ED: Yes edema; Negative for tenderness General Extremity: edema Neuro oriented x3, CN's II-XII intact bilaterally and no sensory deficits noted [place] Coma Scale: document GCS findings Spontaneous Obeys Commands Oriented 15 Sensorium / Orientation: alert Motor Exam: strength 5/5 throughout Psych mental status grossly normal MDM MDM MDM Narrative Medical decision making narrative: Differential diagnosis includes pneumonia, bronchitis, viral illness, congestive heart failure, cardiac dysrhythmia, cardiac ischemia, pneumothorax, and pulmonary embolism. EKG will be obtained to assess for cardiac dysrhythmia and cardiac ischemia. Chest x-ray will be obtained to assess for pneumonia, congestive heart failure, and bronchitis. CBC will be obtained to assess for leukocytosis and anemia. Basic metabolic profile will be obtained to assess for electrolyte abnormality and renal function. High-sensitivity troponin will be obtained to assess for cardiac ischemia. BNP will be obtained to assess for congestive heart failure. D-dimer will be obtained to assess for pulmonary embolism. Lab Data Attestation: I reviewed the patient's lab results. Lab results narrative: CBC was reviewed. There is a slight leukocytosis of 12.9. The remainder is within normal limits. D-dimer was reviewed and was slightly elevated at 0.94. Basic metabolic profile was reviewed. BUN was 30 and creatinine was slightly elevated at 1.54. Glucose was slightly elevated at 167. High-sensitivity troponin was reviewed and was elevated at 379. However, this is downtrending from previous results. BNP was reviewed and was elevated at 1105.1. This is increased from previous results. Labs: Laboratory Results - last 24 hr 10/30/24 14:15 WBC 12.9 H RBC 4.27 Hgb 12.4 Hct 40.3 MCV 94.4 MCH 29.0 MCHC 30.8 L RDW Std Deviation 49.0 H RDW Coeff of Leif 15.6 H Plt Count 375 MPV 9.1 Immature Gran % (Auto) 1.800 H Neut % (Auto) 80.8 H Lymph % (Auto) 10.8 L [place] % (Auto) 5.3 Eos % (Auto) 0.8 Baso % (Auto) 0.5 Absolute Neuts (auto) 10.5 H Absolute Lymphs (auto) 1.40 Nucleated RBC % 1.8 D-Dimer Quant (PE/DVT) 0.94 H* Sodium 141 Potassium 4.4 Chloride 110 H Carbon Dioxide 24.0 Anion Gap 7 BUN 30 H Creatinine 1.54 H Est GFR (MDRD) Af Amer 42 L Est GFR (MDRD) Non-Af 35 L BUN/Creatinine Ratio 19.5 Glucose 167 H Calcium 9.6 Troponin I High Sens 379 H* B-Natriuretic Peptide 1105.1 H Radiography Chest X-Ray - ED: 2 View, Read by ED Physician, Read by Radiologist and CHF CTA PE Study: No Evidence of PE and No Evidence of Dissection Diagnostic Testing: Clinical Impression(s) from Imaging Studies Chest X-Ray 10/30/24 14:50 IMPRESSION: Myocardium and CHF with blunting of both costophrenic angles and bibasilar atelectasis. Electronically Signed: Santos Francisco MD at 15:09 EST , Chest CTA 10/30/24 15:30 IMPRESSION: 1. No evidence of pulmonary embolus. 2. Moderate bilateral pleural effusions with bibasilar atelectasis. Electronically Signed: Fausto Esquivel MD at 16:55 EST , PA and lateral chest x-ray was obtained. There are 2 views. On my independent interpretation, lung ye show congestive heart failure and blunting of both costophrenic angles. There is bibasilar atelectasis. There is mild cardiomegaly. Bony thorax is normal. Radiologist also interpreted the x-ray and agrees. CTA of the chest was obtained because of the elevated D-dimer. There is no evidence of pulmonary embolism or aortic dissection. There are moderate bilateral pleural effusions and bibasilar atelectasis. This was interpreted by the radiologist and was also dependently reviewed by myself. EKG Initial EKG: Attestation: I personally reviewed and interpreted this EKG as follows: Interpretation: Sinus Rhythm (80) and Non-Specific ST Changes Comments: EKG was obtained. On my independent interpretation, it showed a normal sinus rhythm with a rate of 80. MA interval, QRS interval, and QTc intervals were all normal. [place] was normal. There are nonspecific ST-T wave changes. Prior EKG tracings: available for review Prior: Unchanged (10/18/2024) Management Discussion w/another healthcare provider: Hospitalist Treatment and Re-Evaluation :: Patient was placed on oxygen. Patient was given Lasix here. Patient had good urine output with this. Patient was advised of her findings. Case was discussed with the hospitalist. She will admit the patient to PCU. Patient and family understood and were agreeable with the plan. All questions were answered. Discharge Plan Triage Chief Complaint: Shortness of Breath ED Provider: Fitz Deleon Dx/Rx/DC Orders Clinical Impression: Congestive heart failure, Hypoxia, Dyspnea Prescriptions: No Action levothyroxine [Synthroid] 100 mcg tablet 100 mcg PO DAILY atorvastatin 10 mg tablet 10 mg PO QHS glipizide 2.5 mg tablet extended release 24hr 2.5 mg PO DAILY pioglitazone-metformin 15-500 mg tablet 1 tab PO BID carvedilol 6.25 mg Tablet 6.25 mg PO BIDCM 30 Days Qty: 60 2RF aspirin 81 mg Tablet,Chewable 81 mg PO DAILYCM 90 Days Qty: 90 0RF furosemide 20 mg Tablet 20 mg PO BIDLX 30 Days Qty: 60 2RF amoxicillin-pot clavulanate 875-125 mg tablet 1 tab PO BID 3 Days Qty: 6 0RF lisinopril 10 mg tablet 10 mg PO DAILY 30 Days Qty: 30 2RF Primary Care Provider: Donal Castle Referrals: Donal Castle MD [Primary Care Provider] - Print Language: Thai Disposition Disposition: Acute Care Hospital [facility]
--- NOTE | 2024-10-30 14:38 | EKG12_ITS ---
Test Reason : SOB Blood Pressure : */* mmHG Vent. Rate : 80 BPM Atrial Rate : 80 BPM P-R Int : 150 ms QRS Dur : 94 ms QT Int : 360 ms P-R-T Axes : 87 1 257 degrees QTcB Int : 415 ms Normal sinus rhythm Nonspecific T wave abnormality Abnormal ECG When compared with ECG of 18-Oct-2024 07:46, No significant change was found Confirmed by WANDA SANTIAGO, COY ([id number]), book editor MIRNA DRAKE ([id number]) on 11/03/2024 9:58:40 AM Referred By: Confirmed By: COY MUÑOZ MD
[2024-10-30 14:49] LABS: Absolute Neutrophil Count 10.5 X10^3/uL (2.0-7.7); Basophil# 0.06 X10^3/uL; Basophil% 0.5 % (0-1); Eosinophils% 0.8 % (0-5); Hematocrit 40.3 % (37-47); Hemoglobin 12.4 g/dL (12.0-15.0); Lymphocyte % 10.8 % (19-41); Mean Corp Hgb Conc 30.8 g/dL (32-36); Mean Corpuscular Volume 94.4 fL (81-99); Mean Platelet Vol. 9.1 fl (6.2-12.0); Monocyte# 0.68 X10^3/uL; Monocyte% 5.3 % (0-10); NRBC Flagged by Analyzer 1.8 % (0-5); Neutrophil # 10.47 X10^3/uL (2.7-7.7); Neutrophil % 80.8 % (47-70); Platelet Count 375 K/mm3 (150-450); RBC Distribution Width CV 15.6 % (11.6-14.6); Red Blood Count 4.27 M/mm3 (4.2-5.4); White Blood Count 12.9 K/mm3 (4.4-11.0)
--- NOTE | 2024-10-30 14:50 | RAD_ITS ---
STUDY: X-RAY CHEST REASON FOR EXAM: Female, 74 years old. Dyspnea TECHNIQUE: PA and lateral views of the chest. COMPARISON: Comparison is made with prior study dated October 17, 2024. FINDINGS: EKG electrodes are seen. Vascular congestion and CHF with blunting of both costophrenic angles. Bibasilar atelectasis. There is mild cardiac enlargement. Normal mediastinum and doris. Normal visualized pulmonary arteries. Normal visualized aortic arch and descending thoracic aorta. Normal visualized thoracic spine. Normal visualized ribs, clavicles, and shoulders. There is no demonstrated abnormality of the visualized soft tissue structures of the upper abdomen. RAD/Chest PA and Lateral IMPRESSION: Myocardium and CHF with blunting of both costophrenic angles and bibasilar atelectasis. Electronically Signed: Santos Francisco MD at 15:09 EST ,
[2024-10-30 15:06] LABS: BNP,B-Type NATRIURETIC PEPTIDE 1105.1 pg/mL (0-100)
[2024-10-30 15:12] LABS: D-Dimer Quantitative (DVT/PE) 0.94 FEU/ug/m (0.27-0.49)
[2024-10-30 15:13] LABS: Anion Gap 7 (5-15); BUN 30 mg/dL (7-18); BUN/Creat Ratio 19.5 RATIO (10-20); Calcium,Total 9.6 mg/dL (8.5-10.1); Chloride 110 mmol/L (98-107); Creatinine, Serum 1.54 mg/dL (0.55-1.02); EST Glomerular Filtration Rate 35 mL/min (>60); Est Glom Filt Rate - Afr Amer 42 mL/min (>60); Glucose 167 mg/dL (74-106); Potassium 4.4 mmol/L (3.5-5.1); Sodium Level 141 mmol/L (136-145); Troponin-I HS (w/2H Reflex) 379 pg/mL (3.0-54.0)
--- NOTE | 2024-10-30 15:30 | CT_ITS ---
EXAM: CT ANGIOGRAPHY CHEST WITHOUT AND WITH INTRAVENOUS CONTRAST CLINICAL INDICATION: Elevated D-dimer TECHNIQUE: Helically acquired angiography images were obtained of the chest without and with intravenous contrast. This CT exam was performed using one or more of the following dose reduction techniques: automated exposure control, adjustment of the mA and/or kV according to patient size, and/or use of iterative reconstruction technique. MIP reconstructed images were created and reviewed. CONTRAST: IV 100mL [id number] COMPARISON: No relevant prior studies available. FINDINGS: PULMONARY ARTERIES: Unremarkable. Normal in caliber. No evidence of pulmonary embolism. AORTA: Unremarkable. Normal in caliber. No evidence of dissection. GREAT VESSELS OF AORTIC ARCH: Unremarkable. Normal in caliber. No evidence of dissection. LUNGS AND PLEURAL SPACES: There is bilateral lower lobe consolidation which may represent atelectasis or pneumonia. Moderate bilateral pleural effusions. No mass. HEART: Unremarkable. Heart size is normal. No pericardial effusion. No significant coronary artery calcifications. MEDIASTINUM: Unremarkable. No mediastinal or hilar adenopathy. Esophagus is unremarkable. No hiatal hernia. THYROID: Unremarkable. No thyroid lesions. BONES/JOINTS: Unremarkable. No suspicious lytic or blastic abnormality. CT/CTA Chest W/WO Contrast IMPRESSION: 1. No evidence of pulmonary embolus. 2. Moderate bilateral pleural effusions with bibasilar atelectasis. Electronically Signed: Fausto Esquivel MD at 16:55 [facility] ,
[2024-10-30] MEDS: Furosemide 40 MG/4 ML Vial IV (15:49)
[2024-10-30 16:42] LABS: Reflex Troponin-HS? (from REC) Y
[2024-10-30 17:50] LABS: Troponin-I HS 379 pg/mL (3.0-54.0)
--- NOTE | 2024-10-30 18:01 | HP.PCM.HOS_ITS ---
HPI - General General Date of Admission: 10/30/24 Date of Service: 10/30/24 Chief Complaint: increasing SOB HPI Narrative MISAEL MEDINA, is a 74-year-old female history of hypothyroidism, diabetes, morbid obesity, heart failure who presented [facility] ED 10/30/2024 with increasing shortness of breath worsening over the past few days. Symptoms initially began a few weeks ago and she was admitted to the hospital for pneumonia, initially improved and was discharged home but since then has worsened. She is completed her course of antibiotics. She does have wheezing and shortness of breath with exertion that improves with rest. In the ED she was noted to be 84% on room air and was placed on 4 L of nasal cannula with significant improvement in oxygen saturation. She had troponin of 379, BNP of 1100, D-dimer 0.94 with chest x-ray suggestive of fluid overload. Given elevated D-dimer she did have CTA which showed moderate bilateral pleural effusions and bibasilar atelectasis. No PE. Patient given IV Lasix and hospitalist contacted for admission for heart failure exacerbation. Patient evaluated at bedside. She reports history as above, over the past several days she has had increasing shortness of breath and just feels generally unwell with poor p.o. intake and feeling fatigued because she is not eating well. Not nauseous or having any other GI symptoms but just does not feel like eating. Denies any chest pain or fever, ROS otherwise negative. Feels that the Lasix are working very well and she is urinating well and also feels her breathing is improving. [facility] Medical History Morbid obesity with BMI of 45.0-49.9, adult Hypertension Diabetes Wears glasses Post-menopausal Thyroid disease Diabetes Uses wheelchair Ambulates with cane Arthritis High cholesterol Back pain TIA (transient ischemic attack) Dietary restriction Non-smoker History of pain when walking History of transesophageal echocardiography (DESTIN) Cardiology follow-up encounter Hypertension Home Medications ?Medication ?Instructions ?Recorded ?Last Taken ?Type atorvastatin 10 mg tablet 10 mg PO QHS cholesterol 08/31/22 Unknown History glipizide 2.5 mg tablet, extended 2.5 mg PO DAILY diabetes 08/31/22 Unknown History release 24 hr levothyroxine 100 mcg tablet 100 mcg PO DAILY thyroid 08/31/22 11/19/22 08:00 History (Synthroid) pioglitazone 15 mg-metformin 500 1 tab PO BID diabetes 10/17/24 Unknown History mg tablet amoxicillin 875 mg-potassium 1 tab PO BID 3 days #6 tabs 10/21/24 Unknown Rx clavulanate 125 mg tablet aspirin 81 mg chewable tablet 81 mg PO DAILYCM 90 days #90 tabs 10/21/24 Unknown Rx carvedilol 6.25 mg tablet 6.25 mg PO BIDCM 30 days #60 tabs 10/21/24 Unknown Rx furosemide 20 mg tablet 20 mg PO BIDLX 30 days #60 tabs 10/21/24 Unknown Rx lisinopril 10 mg tablet 10 mg PO DAILY 30 days #30 tabs 10/21/24 Unknown Rx Allergy/AdvReac Type Severity Reaction Status Date / Time No Known Allergies Allergy Verified 10/30/24 13:54 Surgical History Hx of colonoscopy Hx of cholecystectomy H/O: hysterectomy Social History household members: spouse Smoking Status: Never smoker alcohol intake: never ROS ROS Narrative General: Denies fever/chills HENT: Denies headache, denies stuffy nose, denies sore throat EYES: Denies changes in vision Resp: Increased shortness of breath, no productive cough Cardiac: Denies chest pain GI: Denies abdominal pain, denies changes in bowel, denies nausea/vomiting, has not been very hungry : Denies changes in urination Extremity: Denies swelling MSK: Feels little bit generally weak and fatigued Neuro: Denies any numbness/tingling Heme: Denies any bleeding or bruising Skin: Denies rashes Psychiatric: No complaints voiced Vital Signs Vital Signs Vital Signs: 10/30/24 13:54 10/30/24 13:54 10/30/24 14:23 Temperature 96.9 F L 96.9 F L Temperature Source Temporal Temporal Pulse Rate 84 92 Respiratory Rate 15 25 H Respiratory Effort Respiratory Pattern Blood Pressure 155/93 H 173/89 H Blood Pressure Mean 113 117 Pulse Ox 84 100 96 Oxygen Delivery Method Room Air Nasal Cannula Nasal Cannula Oxygen Flow Rate (L/min) 4 4 10/30/24 14:23 10/30/24 14:54 10/30/24 15:06 Temperature Temperature Source Pulse Rate Respiratory Rate Respiratory Effort Short of Breath Labored Respiratory Pattern Tachypnea Blood Pressure 148/73 H Blood Pressure Mean 98 Pulse Ox Oxygen Delivery Method Room Air Oxygen Flow Rate (L/min) 4 10/30/24 15:06 10/30/24 16:06 10/30/24 17:00 Temperature 97.3 F L 97.1 F L 98.2 F Temperature Source Temporal Temporal Oral Pulse Rate 73 76 69 Respiratory Rate 25 H 25 H 20 H Respiratory Effort Respiratory Pattern Blood Pressure 148/73 H 138/68 H 163/55 H Blood Pressure Mean 98 91 91 Pulse Ox 96 95 96 Oxygen Delivery Method Nasal Cannula Room Air Oxygen Flow Rate (L/min) 4 Weight Weight: 115.349 kg Body Mass Index (BMI) 49.6 Physical Exam Narrative General: Alert, oriented, no apparent distress HEENT: Atraumatic, normocephalic Eyes: Anicteric, normal conjunctiva, extraocular movements grossly intact Neck: Supple Respiratory: Slight increased respiratory effort, dull at the bases bilaterally Cardiovascular: Regular rate and rhythm GI: Soft, nontender, nondistended Extremities: No edema Musculoskeletal: Moving all extremities Neuro: No overt focal neurological deficits Skin: No rashes appreciated Psych: Cooperative Results Lab / Micro Data 10/30/24 14:15 10/30/24 14:15 Labs: Laboratory Results - last 24 hr 10/30/24 14:15: WBC 12.9 H, RBC 4.27, Hgb 12.4, Hct 40.3, MCV 94.4, MCH 29.0, M CHC 30.8 L, RDW Std Deviation 49.0 H, RDW Coeff of Leif 15.6 H, Plt Count 375, MPV 9.1, Immature Gran % (Auto) 1.800 H, Neut % (Auto) 80.8 H, Lymph % (Auto) 10.8 L, Nye % (Auto) 5.3, Eos % (Auto) 0.8, Baso % (Auto) 0.5, Absolute Neuts (auto) 10.5 H, Absolute Lymphs (auto) 1.40, Nucleated RBC % 1.8, D-Dimer Quant (PE/DVT) 0.94 H*, Sodium 141, Potassium 4.4, Chloride 110 H, Carbon Dioxide 24.0, Anion Gap 7, BUN 30 H, Creatinine 1.54 H, Est GFR (MDRD) Af Amer 42 L, Est GFR (MDRD) Non-Af 35 L, BUN/Creatinine Ratio 19.5, Glucose 167 H, Calcium 9.6, T roponin I High Sens 379 H*, B-Natriuretic Peptide 1105.1 H 10/30/24 17:14: Troponin I High Sens 379 H* Imaging Radiology Impression Chest X-Ray 10/30/24 14:50 IMPRESSION: Myocardium and CHF with blunting of both costophrenic angles and bibasilar atelectasis. Electronically Signed: Santos Francisco MD at 15:09 EST , Chest CTA 10/30/24 15:30 IMPRESSION: 1. No evidence of pulmonary embolus. 2. Moderate bilateral pleural effusions with bibasilar atelectasis. Electronically Signed: Fausto Esquivel MD at 16:55 EST , Assessment & Plan Assessment/Plan (1) Hypoxia: PLAN: Plan #Hypoxia 2/2 acute exacerbation of chronic heart failure with preserved ejection fraction/borderline EF/pulmonary hypertension -Admit to telemetry -BNP 1100 -CXR with effusions and is suggestive of heart failure -Continue IV lasix -Last echo 10/18/2024 with PASP of 70, EF borderline at 40 to 45% and diastolic dysfunction with hypokinesis of inferior wall -Repeat echo ordered -Daily weights, I's and O's -Fluid restriction, heart healthy diet -Repeat chest x-ray in a.m. to assess for improvement in effusions or further workup with possible thoracentesis needed # Elevated troponin -Patient had troponin earlier this month of greater than 29,000 (it was suspected that this was type II secondary to her underlying sepsis and illness), troponin today in ED is 379 and repeat the same, no chest pain -Do suspect this is secondary to fluid overload/heart failure exacerbation # JOSUE -Creatinine 1.54 with baseline closer to 1.1 -Could be cardiorenal given patient volume overloaded -Patient to be diuresed -If not improving may need further workup -Hold BRETT #Hypothyroidism -Continue Synthroid #Type 2 diabetes mellitus -Glucose checks and sliding scale insulin #Hypertension -Continue home medications aside from BRETT which will be held #Morbid obesity -BMI documented as 49.7 kg/m? at time of admission -Complicates treatment, prognosis, outcomes -Recommend weight loss and lifestyle changes #DVT ppx: Lovenox subcu twice daily Aparna Mabry MD Charges/Coding Visit Charges Inpatient E&M: 26396 Init Hosp L2
[2024-10-30 19:39] LABS: Bedside Glucose 110 mg/dL (74-106)
--- NOTE | 2024-10-30 20:54 | CPS ---
pt did not want PEP or I.S. already has both at home she stated.
[2024-10-30] MEDS: Enoxaparin 40 MG/0.4 ML Syringe SC (21:38)
[2024-10-30 21:56] LABS: Bedside Glucose 159 mg/dL (74-106)
[2024-10-31] VITALS (9 sets, daily range): BP systolic 118–139; BP diastolic 49–72; PULSE 52–67; RESP 16–18; TEMP 36.5–37.1; O2SAT 94–97; BMI 50.7
[2024-10-31] MEDS: Levothyroxine 100 MCG Tablet PO (05:50)
--- NOTE | 2024-10-31 05:55 | RAD_ITS ---
STUDY: X-RAY CHEST REASON FOR EXAM: Female, 74 years old. bilateral effusions, HF exacerbation TECHNIQUE: Single AP portable view of the chest. COMPARISON: 10/30/2024 FINDINGS: Decreasing alveolar opacity in the lower right lung consistent with improved right lower lobe pneumonia. There is no demonstrated pleural abnormality. There is moderate cardiac enlargement. Normal mediastinum and doris. Normal visualized pulmonary arteries. Normal visualized aortic arch and descending thoracic aorta. Normal visualized thoracic spine. Normal visualized ribs, clavicles, and shoulders. There is no demonstrated abnormality of the visualized soft tissue structures of the upper abdomen. RAD/Chest 1 View (Portable) IMPRESSION: Improved right lower lobe pneumonia. Electronically Signed: Dagoberto Minaya MD at 8:38 EST ,
[2024-10-31 06:19] LABS: Absolute Lymphocyte Count 1.67 X10^3/uL (0.83-4.51); Absolute Neutrophil Count 6.8 X10^3/uL (2.0-7.7); Basophil# 0.04 X10^3/uL; Basophil% 0.4 % (0-1); Eosinophil# 0.23 X10^3/uL; Eosinophils% 2.4 % (0-5); Hematocrit 32.9 % (37-47); Hemoglobin 10.2 g/dL (12.0-15.0); Lymphocyte # 1.67 X10^3/ul (0.83-4.51); Lymphocyte % 17.3 % (19-41); Mean Corpuscular Hgb 29.6 pg (27.0-32.0); Mean Corpuscular Volume 95.4 fL (81-99); Monocyte% 8.3 % (0-10); NRBC Flagged by Analyzer 0.8 % (0-5); Neutrophil # 6.82 X10^3/uL (2.7-7.7); Neutrophil % 70.9 % (47-70); Platelet Count 280 K/mm3 (150-450); RBC Distribution Width CV 15.9 % (11.6-14.6); RBC Distribution Width SD 51.4 fl (35.1-43.9); Red Blood Count 3.45 M/mm3 (4.2-5.4); White Blood Count 9.6 K/mm3 (4.4-11.0)
[2024-10-31 06:43] LABS: AST(SGOT) 17 U/L (15-37); Alanine Aminotransfer ALT/SGPT 21 U/L (13-56); Alkaline Phosphatase 83 U/L (45-117); Anion Gap 5 (5-15); BUN 28 mg/dL (7-18); BUN/Creat Ratio 18.4 RATIO (10-20); Calcium,Total 8.8 mg/dL (8.5-10.1); Chloride 112 mmol/L (98-107); Creatinine, Serum 1.52 mg/dL (0.55-1.02); EST Glomerular Filtration Rate 36 mL/min (>60); Est Glom Filt Rate - Afr Amer 43 mL/min (>60); Estimated Creatinine Clearance 38.15 ml/min; Globulin 3.1 g/dL (2.2-4.2); Glucose 117 mg/dL (74-106); Potassium 4.1 mmol/L (3.5-5.1); Protein, Total 6.1 g/dL (6.4-8.2); Sodium Level 143 mmol/L (136-145)
[2024-10-31 06:47] LABS: Bedside Glucose 102 mg/dL (74-106)
[2024-10-31] MEDS: Enoxaparin 40 MG/0.4 ML Syringe SC ×2 (08:52→22:40)
[2024-10-31] MEDS: Atorvastatin Calcium 10 MG Tablet PO (08:52)
[2024-10-31] MEDS: Aspirin 81 MG TAB.CHEW PO (08:52)
[2024-10-31] MEDS: Carvedilol 6.25 MG Tablet PO (08:52)
[2024-10-31] MEDS: Furosemide 40 MG/4 ML Vial IV ×3 (08:53→22:40)
[2024-10-31] MEDS: 0.9% Saline Lock 10 ML Syringe IV ×3 (08:53→22:40)
--- NOTE | 2024-10-31 11:06 | PN.HOSP_ITS ---
Reason for Visit Reason for Visit: Diagnoses Hypoxemia (10/30/24) Subjective Subjective Saw patient at bedside this morning. Patient was sitting up comfortably in bed, conversing normally, in no acute distress. Was breathing comfortably on 2 L nasal cannula at rest. Denied any shortness of breath at rest. Had Purewick in place and reported good urine output with the IV Lasix thus far. No other acute concerns at this time. Objective Data Objective Data Vital Signs: Vital Signs Temp Pulse Resp BP Pulse Ox O2 Del Method O2 Flow Rate 98.6 F 67 18 139/60 H 94 Nasal Cannula 2 10/31/24 08:51 10/31/24 08:51 10/31/24 08:51 10/31/24 08:51 10/31/24 08:51 10/31/24 08:51 10/31/24 08:51 Oxygen Flow Rate (L/min) 2 Oxygen Delivery Method Nasal Cannula Weight: 117.8 kg Body Mass Index (BMI) 50.7 Intake & Output: Intake and Output for Last 24 Hours 10/29/24 10/30/24 10/31/24 23:59 23:59 23:59 Intake Total 400 / 400 Output Total 1350 / 1350 Balance -950 / -950 Lab / Micro Data 10/31/24 06:10 10/31/24 06:10 Labs: Laboratory Results - last 24 hr 10/30/24 14:15: WBC 12.9 H, RBC 4.27, Hgb 12.4, Hct 40.3, MCV 94.4, MCH 29.0, M CHC 30.8 L, RDW Std Deviation 49.0 H, RDW Coeff of Leif 15.6 H, Plt Count 375, MPV 9.1, Immature Gran % (Auto) 1.800 H, Neut % (Auto) 80.8 H, Lymph % (Auto) 10.8 L, [place] % (Auto) 5.3, Eos % (Auto) 0.8, Baso % (Auto) 0.5, Absolute Neuts (auto) 10.5 H, Absolute Lymphs (auto) 1.40, Nucleated RBC % 1.8, D-Dimer Quant (PE/DVT) 0.94 H*, Sodium 141, Potassium 4.4, Chloride 110 H, Carbon Dioxide 24.0, Anion Gap 7, BUN 30 H, Creatinine 1.54 H, Est GFR (MDRD) Af Amer 42 L, Est GFR (MDRD) Non-Af 35 L, BUN/Creatinine Ratio 19.5, Glucose 167 H, Calcium 9.6, T roponin I High Sens 379 H*, B-Natriuretic Peptide 1105.1 H 10/30/24 17:14: Troponin I High Sens 379 H* 10/30/24 18:47: POC Glucose 110 H 10/30/24 21:32: POC Glucose 159 H 10/31/24 05:47: POC Glucose 102 10/31/24 06:10: WBC 9.6, RBC 3.45 L, Hgb 10.2 L, Hct 32.9 L, MCV 95.4, MCH 29.6, MCHC 31.0 L, RDW Std Deviation 51.4 H, RDW Coeff of Leif 15.9 H, Plt Count 280, MPV 9.0, Immature Gran % (Auto) 0.700, Neut % (Auto) 70.9 H, Lymph % (Auto) 17.3 L, [place] % (Auto) 8.3, Eos % (Auto) 2.4, Baso % (Auto) 0.4, Absolute Neuts (auto) 6.8, Absolute Lymphs (auto) 1.67, Nucleated RBC % 0.8, Sodium 143, Potassium 4.1, Chloride 112 H, Carbon Dioxide 26.0, Anion Gap 5, BUN 28 H, Creatinine 1.52 H, Estim Creat Clear Calc 38.15, Est GFR (MDRD) Af Amer 43 L, Est GFR (MDRD) Non-Af 36 L, BUN/Creatinine Ratio 18.4, Glucose 117 H, Calcium 8.8, Total Bilirubin 0.50, AST 17, ALT 21, Alkaline Phosphatase 83, Total Protein 6.1 L, A lbumin 3.0 L, Globulin 3.1, Albumin/Globulin Ratio 1.0 Radiography Diagnostic Testing: Radiology Impression Chest X-Ray 10/30/24 14:50 IMPRESSION: Myocardium and CHF with blunting of both costophrenic angles and bibasilar atelectasis. Electronically Signed: Santos Francisco MD at 15:09 EST , Chest CTA 10/30/24 15:30 IMPRESSION: 1. No evidence of pulmonary embolus. 2. Moderate bilateral pleural effusions with bibasilar atelectasis. Electronically Signed: Fausto Esquivel MD at 16:55 EST , Chest X-Ray 10/31/24 05:55 IMPRESSION: Improved right lower lobe pneumonia. Electronically Signed: Dagoberto Minaya MD at 8:38 EST , Physical Exam Const alert, oriented x3 and no apparent distress Constitutional Narrative: Pleasant elderly female, class III obesity, sitting up comfortably in bed, conversing normally, in no acute distress. General Appearance: cooperative and comfortable HEENT normocephalic, head/scalp atraumatic, hearing grossly normal bilaterally, nasal mucous membranes and turbinates normal and moist oral mucous membranes Eyes PERRL, EOMs intact bilaterally and conjunctivae normal Neck full ROM Chest inspection of chest normal Resp normal respiratory effort and no use of accessory muscles Resp Narrative: Breathing comfortably on 2 L nasal cannula at rest. Decreased breath sounds at bilateral lung bases with mild crackles noted. No wheezing noted. Cardio regular rate, regular rhythm, no murmurs and peripheral pulses 2+ throughout GI normal to inspection, nondistended, normoactive bowel sounds, soft to palpation, non-tender and non-distended Back/Spine normal ROM Extremity full ROM Extremity Narrative: Trace lower extremity edema noted. Skin no rashes or lesions noted Psych mental status grossly normal Assessment & Plan Assessment/Plan (1) Acute HFrEF (heart failure with reduced ejection fraction): (2) Hypoxia: PLAN: Plan Patient is a 74-year-old female who presented [facility] ED on 10/18/2024 with worsening shortness of breath. 1. Acute HFrEF with hypoxia ? Patient recently hospitalized here from 10/17-10/21 for a heart failure exacerbation with pneumonia. Cardiology followed during that admission. Echo showed newly reduced EF 40 to 45% with diastolic dysfunction and hypokinesis of the inferior wall along with elevated pulmonary artery systolic pressure of 70 mmHg. Patient significantly improved with IV diuresis and plan per cardiology was to repeat echo in about 6 weeks after discharge. Patient was discharged on Lasix 20 mg twice daily. Patient reported good urine output at home but had progressively worsening shortness of breath over the past several days. Chest x-ray on admit showed blunting of bilateral costophrenic angles and vascular congestion, and patient was requiring 3 L nasal cannula to maintain appropriate oxygen saturations. BNP more elevated than previous at 1100. Treating with IV Lasix 40 mg every 8 hours for now, will monitor daily BMP and urine output. Wean supplemental oxygen as able. Will hopefully be okay to transition back to p.o. Lasix in the next 1 to 2 days and we will plan to discharge patient on a higher dose of Lasix. Continue home Coreg, holding home lisinopril. 2. JOSUE ? Creatinine 1.54 on admit, baseline around 1.1. Suspect cardiorenal given volume overload on admit. Diuresing as noted above, monitor daily BMP and urine output. Holding home lisinopril. Chronic medical conditions: ? Class III obesity: BMI 50 on admit. Complicates hospital course, care and prognosis. ? Type 2 diabetes mellitus: Treating with sliding scale insulin while inpatient. Holding home glipizide and pioglitazone?metformin. ? Hypothyroidism: TSH mildly low at 0.22 on previous admit. Continue home Synthroid. Further adjustments per PCP as needed. ? Hypertension: Continue home Coreg, holding home lisinopril. ? Hyperlipidemia: Continue home statin. DVT prophylaxis: Lovenox twice daily CODE STATUS: Full code, verified Expected disposition: Home, 1 to 2 days Total clinical time spent by myself addressing the patient's medical issues, reviewing all the data, and collaborating with patient's care team: 35 minutes. Charges/Coding Visit Charges Inpatient E&M: 54213 Subs Hosp L2
[2024-10-31 11:42] LABS: Bedside Glucose 138 mg/dL (74-106)
--- NOTE | 2024-10-31 13:30 | CASEMGMT ---
SHON [facility]ILL chart review: Patient was admitted 10/18-10/21/24 for pneumonia with sepsis with acute hypoxic respiratory failure. See RN CM assessment from 10/18/24. Patient was discharged to home with family support, patient did not qualify for home oxygen. Patient was sent to [facility] ED from PCP office 10/30/24 for increased SOB and SPO2 at 86%, patient was admitted for heart failure exacerbation. RN CM in to discuss needs at discharge and readmission. Patient states she was taking all her medications as prescribed including Lasix. Patient camed to ED from PCP office. Patient states she still has to schedule cardiology follow-up and states they wanted her to be seen in 4-6 weeks. RN CM inquired if patient was following a low sodium diet, patient states she hasn't had much of an appetite. RN CM inquired if patient weighs self daily to monitor for fluid retention, patient states scale is on the other side of the house and has no been weighing self. RN CM educated patient on the importance of weighing self daily to monitor for fluid retention and to update PCP of sudden weight gain for recommendations at home to prevent hospital visit. Patient voiced understanding. Patient is currently on 2lpm of oxygen, will monitor for oxygen at discharge. Patient states she prefers [employer] for home oxygen setup if needed. Patient denies further needs or concerns, daughter in law in [employer] and family is very supportive. Patient to discharge home with possible home oxygen. CM will continue to follow this patient and plan for a safe discharge.
--- NOTE | 2024-10-31 16:23 | CHAPLAIN ---
Type of Pastoral Visit _x__ Initial Visit ___ Follow-up Visit ___ On-call Visit ___ General Patient Visit ___ Spiritual Assessment ___ Family Conference ___ Bereavement ___ Rapid Response ___ Code Blue ___ Other (describe below) Pastoral Care Referral From _x__ Patient ___ Family ___ Nurse ___ Physician ___ Alteration Inspector ___ Central Office Operator ___ Other (describe below) Sacrament/Intervention _x__ Active listening ___ Anointing ___ Anabaptism ___ Bereavement ___ Communion ___ Allison exploration ___ ___ Life review ___ Prayer ___ Reconciliation ___ Sacrament of Sick _x__ Supportive presence ___ Wedding ___ Other (describe below) Pastoral Comments patient was recently admitted to this hospital and seen by this cutlet maker pork; spouse is with her; pt admits to discouragement about being back in the hospital and yet she is feeling better today; pt admits to some hope for getting better; offer of support and care to both patient and her spouse; both deny any further needs; son of the patient has been in to see her and he is supportive as well
[2024-10-31 16:49] LABS: Bedside Glucose 171 mg/dL (74-106)
[2024-10-31 23:38] LABS: Bedside Glucose 115 mg/dL (74-106)
[2024-11-01] VITALS (7 sets, daily range): BP systolic 111–139; BP diastolic 58–64; PULSE 47–73; RESP 16–18; TEMP 36.3–37.4; O2SAT 88–97; BMI 47.8
[2024-11-01] MEDS: 0.9% Saline Lock 10 ML Syringe IV ×3 (05:43→21:26)
[2024-11-01] MEDS: Levothyroxine 100 MCG Tablet PO (05:44)
[2024-11-01] MEDS: Furosemide 40 MG/4 ML Vial IV ×3 (05:44→21:24)
[2024-11-01 06:44] LABS: Anion Gap 5 (5-15); BUN 29 mg/dL (7-18); BUN/Creat Ratio 19.3 RATIO (10-20); Calcium,Total 8.7 mg/dL (8.5-10.1); Chloride 111 mmol/L (98-107); EST Glomerular Filtration Rate 36 mL/min (>60); Est Glom Filt Rate - Afr Amer 44 mL/min (>60); Estimated Creatinine Clearance 37.26 ml/min; Glucose 114 mg/dL (74-106); Potassium 4.3 mmol/L (3.5-5.1); Sodium Level 144 mmol/L (136-145)
[2024-11-01 07:02] LABS: Bedside Glucose 113 mg/dL (74-106)
[2024-11-01] MEDS: Aspirin 81 MG TAB.CHEW PO (08:13)
[2024-11-01] MEDS: Carvedilol 6.25 MG Tablet PO ×2 (08:13→16:27)
[2024-11-01] MEDS: Atorvastatin Calcium 10 MG Tablet PO (08:13)
[2024-11-01] MEDS: Enoxaparin 40 MG/0.4 ML Syringe SC ×2 (08:14→21:24)
[2024-11-01] MEDS: Insulin Lispro 100 UNIT/ML INSULN.PEN SC (11:33)
--- NOTE | 2024-11-01 11:44 | PN.HOSP_ITS ---
Reason for Visit Reason for Visit: Diagnoses Acute systolic (congestive) heart failure (10/30/24) Hypoxemia (10/30/24) Subjective Subjective Saw patient at bedside this morning. Patient was sitting up comfortably in bedside chair, conversing normally, no acute distress. Was breathing comfortably on room air at rest. However she had walked with therapy this morning and her oxygen saturations dropped into the high 70s on room air, then improved on 2 L nasal cannula. She denies any other new concerns today. Objective Data Objective Data Vital Signs: Vital Signs Temp Pulse Resp BP Pulse Ox O2 Del Method O2 Flow Rate 97.9 F 60 18 139/58 H 94 Room Air 94 11/01/24 08:10 11/01/24 08:10 11/01/24 08:10 11/01/24 08:10 11/01/24 08:10 11/01/24 08:10 11/01/24 08:05 Oxygen Flow Rate (L/min) 94 Oxygen Delivery Method Room Air Weight: 111.1 kg Body Mass Index (BMI) 47.8 Intake & Output: Intake and Output for Last 24 Hours 10/30/24 10/31/24 11/01/24 23:59 23:59 23:59 Intake Total 1200 / 1440 480 / 480 Output Total 2050 / 2350 650 / 650 Balance -850 / -910 -170 / -170 Lab / Micro Data 10/31/24 06:10 11/01/24 05:53 Labs: Laboratory Results - last 24 hr 10/31/24 16:27: POC Glucose 171 H 10/31/24 22:38: POC Glucose 115 H 11/01/24 05:53: Sodium 144, Potassium 4.3, Chloride 111 H, Carbon Dioxide 28.0, Anion Gap 5, BUN 29 H, Creatinine 1.50 H, Estim Creat Clear Calc 37.26, Est GFR (MDRD) Af Amer 44 L, Est GFR (MDRD) Non-Af 36 L, BUN/Creatinine Ratio 19.3, G lucose 114 H, Calcium 8.7 11/01/24 06:26: POC Glucose 113 H Physical Exam Const alert, oriented x3 and no apparent distress Constitutional Narrative: Pleasant elderly female, class III obesity, sitting up comfortably in bed, conversing normally, in no acute distress. General Appearance: cooperative and comfortable HEENT normocephalic, head/scalp atraumatic, hearing grossly normal bilaterally, nasal mucous membranes and turbinates normal and moist oral mucous membranes Eyes PERRL, EOMs intact bilaterally and conjunctivae normal Neck full ROM Chest inspection of chest normal Resp normal respiratory effort and no use of accessory muscles Resp Narrative: Breathing comfortably on room air at rest. Mildly decreased breath sounds at bilateral lung bases with no crackles noted, improving. Cardio regular rate, regular rhythm, no murmurs and peripheral pulses 2+ throughout GI normal to inspection, nondistended, normoactive bowel sounds, soft to palpation, non-tender and non-distended Back/Spine normal ROM Extremity full ROM Extremity Narrative: Trace lower extremity edema noted. Stable. Skin no rashes or lesions noted Psych mental status grossly normal Assessment & Plan Assessment/Plan (1) Acute HFrEF (heart failure with reduced ejection fraction): (2) Hypoxia: PLAN: Plan Patient is a 74-year-old female who presented [facility] ED on 10/18/2024 with worsening shortness of breath. 1. Acute HFrEF with hypoxia ? Patient recently hospitalized here from 10/17-10/21 for a heart failure exacerbation with pneumonia. Cardiology followed during that admission. Echo showed newly reduced EF 40 to 45% with diastolic dysfunction and hypokinesis of the inferior wall along with elevated pulmonary artery systolic pressure of 70 mmHg. Patient significantly improved with IV diuresis and plan per cardiology was to repeat echo in about 6 weeks after discharge. Patient was discharged on Lasix 20 mg twice daily. Patient reported good urine output at home but had progressively worsening shortness of breath over the past several days. Chest x-ray on admit showed blunting of bilateral costophrenic angles and vascular congestion, and patient was requiring 3 L nasal cannula to maintain appropriate oxygen saturations. BNP more elevated than previous at 1100. Treating with IV Lasix 40 mg every 8 hours for now, will monitor daily BMP and urine output. Wean supplemental oxygen as able. Planning for transition back to p.o. Lasix tomorrow in preparation for discharge home. Will need home O2 evaluation prior to discharge. Continue home Coreg, holding home lisinopril. 2. JOSUE ? Creatinine 1.54 on admit, baseline around 1.1. Suspect cardiorenal given volume overload on admit. Diuresing as noted above, monitor daily BMP and urine output. Holding home lisinopril. Chronic medical conditions: ? Class III obesity: BMI 50 on admit. Complicates hospital course, care and prognosis. ? Type 2 diabetes mellitus: Treating with sliding scale insulin while inpatient. Holding home glipizide and pioglitazone?metformin. ? Hypothyroidism: TSH mildly low at 0.22 on previous admit. Continue home Synthroid. Further adjustments per PCP as needed. ? Hypertension: Continue home Coreg, holding home lisinopril. ? Hyperlipidemia: Continue home statin. DVT prophylaxis: Lovenox twice daily CODE STATUS: Full code, verified Expected disposition: Home, 1 to 2 days Total clinical time spent by myself addressing the patient's medical issues, reviewing all the data, and collaborating with patient's care team: 35 minutes. Charges/Coding Visit Charges Inpatient E&M: 13657 Subs Hosp L2
[2024-11-01 11:47] LABS: Bedside Glucose 175 mg/dL (74-106)
[2024-11-01 16:51] LABS: Bedside Glucose 105 mg/dL (74-106)
[2024-11-01 22:25] LABS: Bedside Glucose 143 mg/dL (74-106)
[2024-11-02 03:00] VITALS: BP 125/57; PULSE 61; RESP 16; TEMP 37; O2SAT 97
[2024-11-02 04:36] VITALS: BMI 47.4
[2024-11-02 06:03] LABS: Hematocrit 31.8 % (37-47); Hemoglobin 10.1 g/dL (12.0-15.0); Mean Corp Hgb Conc 31.8 g/dL (32-36); Mean Corpuscular Hgb 29.8 pg (27.0-32.0); Mean Corpuscular Volume 93.8 fL (81-99); Mean Platelet Vol. 9.1 fl (6.2-12.0); Platelet Count 244 K/mm3 (150-450); RBC Distribution Width CV 15.5 % (11.6-14.6); RBC Distribution Width SD 50.3 fl (35.1-43.9); Red Blood Count 3.39 M/mm3 (4.2-5.4); White Blood Count 7.7 K/mm3 (4.4-11.0)
[2024-11-02] MEDS: Furosemide 40 MG/4 ML Vial IV (06:07)
[2024-11-02] MEDS: 0.9% Saline Lock 10 ML Syringe IV (06:07)
[2024-11-02] MEDS: Levothyroxine 100 MCG Tablet PO (06:07)
[2024-11-02 06:44] LABS: Anion Gap 4 (5-15); BUN 33 mg/dL (7-18); BUN/Creat Ratio 19.2 RATIO (10-20); Calcium,Total 8.6 mg/dL (8.5-10.1); Chloride 107 mmol/L (98-107); Creatinine, Serum 1.72 mg/dL (0.55-1.02); EST Glomerular Filtration Rate 31 mL/min (>60); Est Glom Filt Rate - Afr Amer 37 mL/min (>60); Estimated Creatinine Clearance 32.32 ml/min; Glucose 111 mg/dL (74-106); Potassium 3.9 mmol/L (3.5-5.1); Sodium Level 140 mmol/L (136-145)
[2024-11-02 07:04] LABS: Bedside Glucose 99 mg/dL (74-106)
[2024-11-02 07:36] VITALS: O2SAT 96
[2024-11-02 07:53] VITALS: O2SAT 89; O2SAT 93
--- NOTE | 2024-11-02 07:54 | RAD_ITS ---
STUDY: X-RAY CHEST REASON FOR EXAM: Female, 74 years old. re-eval b/l pleural effusions TECHNIQUE: Single AP portable view of the chest. COMPARISON: Comparison is made with prior study October 31, 2024 FINDINGS: EKG electrodes are seen. Minimal blunting of the left costophrenic angle. There is mild cardiac enlargement. Normal mediastinum and doris. Normal visualized pulmonary arteries. There is atherosclerotic calcification of the aortic arch with tortuosity. There are diffuse degenerative changes of the visualized thoracic spine. Normal visualized ribs, clavicles, and shoulders. There is no demonstrated abnormality of the visualized soft tissue structures of the upper abdomen. RAD/Chest 1 View (Portable) IMPRESSION: Minimal residual blunting of the left costophrenic angle. Electronically Signed: Santos Francisco MD at 12:40 EST ,
[2024-11-02 09:00] VITALS: BP 139/53; PULSE 64; RESP 12; TEMP 36.7; O2SAT 97
[2024-11-02] MEDS: Enoxaparin 40 MG/0.4 ML Syringe SC (09:04)
[2024-11-02] MEDS: Atorvastatin Calcium 10 MG Tablet PO (09:04)
[2024-11-02] MEDS: Aspirin 81 MG TAB.CHEW PO (09:04)
[2024-11-02] MEDS: Carvedilol 6.25 MG Tablet PO (09:04)
--- NOTE | 2024-11-02 11:16 | DCINST_ITS ---
Discharge Instructions Diet Discharge Diet: 4000 mg Sodium Diet and Carb Control Diet DC O2, CPAP, BIPAP needs RN Home O2 Qualification: Home O2 Qualification: Is the patient on home oxygen No 11/02/24 07:53 Home O2 Qualification: AT REST 1- Pulse Ox at rest 93 11/02/24 07:53 2- Pulse Ox at rest 97 11/01/24 14:35 2- Oxygen Flow Rate at rest 2 11/01/24 14:35 Home O2 Qualification: WITH AMBULATION 1- Pulse Ox with ambulation 89 11/02/24 07:53 1- Oxygen Flow Rate with 0 11/02/24 07:53 ambulation Home O2 Discharge instructions: No Dressing / Incision Discharge Activity: No Restrictions Follow Up Care Test Results: Test results from this visit will be discussed in further detail at your follow- up appointment, if applicable. Discharge Plan Admission Admit Date/Time: 10/30/24 18:01 Primary Reason for Your Visit: Worsening shortness of breath Attending Provider: Seth Garnica Primary Care Provider: Donal Castle Consulting Providers: Aparna Mabry Discharge Orders/Prescriptions Prescriptions: New furosemide [Lasix] 40 mg tablet 40 mg PO BID 30 Days Qty: 60 0RF Continued levothyroxine [Synthroid] 100 mcg tablet 100 mcg PO DAILY atorvastatin 10 mg tablet 10 mg PO QHS glipizide 2.5 mg tablet extended release 24hr 2.5 mg PO DAILY pioglitazone-metformin 15-500 mg tablet 1 tab PO BID carvedilol 6.25 mg Tablet 6.25 mg PO BIDCM 30 Days Qty: 60 2RF aspirin 81 mg Tablet,Chewable 81 mg PO DAILYCM 90 Days Qty: 90 0RF Held lisinopril 10 mg tablet 10 mg PO DAILY 30 Days Qty: 30 2RF Hold Instructions: Resume on 12/11/24. Hold until you see cardiology in the office for follow-up. Discontinued furosemide 20 mg Tablet 20 mg PO BIDLX 30 Days Qty: 60 2RF amoxicillin-pot clavulanate 875-125 mg tablet 1 tab PO BID 3 Days Qty: 6 0RF Referrals / Follow Up: Donal Castle MD [Primary Care Provider] - Disposition Disposition (needs filled in before D/C Order can be placed): Home, Self Care
--- NOTE | 2024-11-02 11:18 | PCM.DC.SUM ---
Providers Date of Admission: 10/30/24 Date of Discharge: 11/02/24 Primary Care Physician: Donal Castle MD Reason For Visit: HEART FAILURE EXACERBATION Diagnosis Discharge Diagnosis (1) Acute HFrEF (heart failure with reduced ejection fraction): Status: Acute Code(s): I50.21 - Acute systolic (congestive) heart failure (2) Hypoxia: Status: Acute Code(s): R09.02 - Hypoxemia (3) JOSUE (acute kidney injury): Status: Resolved Code(s): N17.9 - Acute kidney failure, unspecified Medications at Discharge Home Medications atorvastatin 10 mg tablet 10 mg PO QHS cholesterol 08/31/22 glipizide 2.5 mg tablet, extended release 24 hr 2.5 mg PO DAILY diabetes 08/31/22 levothyroxine 100 mcg tablet (Synthroid) 100 mcg PO DAILY thyroid 08/31/22 pioglitazone 15 mg-metformin 500 mg tablet 1 tab PO BID diabetes 10/17/24 aspirin 81 mg chewable tablet 81 mg PO DAILYCM 90 days #90 tabs 10/21/24 carvedilol 6.25 mg tablet 6.25 mg PO BIDCM 30 days #60 tabs 10/21/24 lisinopril 10 mg tablet 10 mg PO DAILY 30 days #30 tabs 10/21/24 furosemide 40 mg tablet (Lasix) 40 mg PO BID 30 days #60 tabs 11/02/24 Hospital Course Operations None Procedures EKG and - (Chest x-ray x 3, CTA chest) Summary of Care Provided Minutes Spent on Discharge: 35 Hospital Course: Patient is a 74-year-old female who presented [facility] ED on 10/30/2024 with worsening shortness of breath. Hospital course as noted below. Patient discharged home in stable condition on 11/02. . Acute HFrEF with hypoxia ? Patient recently hospitalized here from 10/17-10/21 for a heart failure exacerbation with pneumonia. Cardiology followed during that admission. Echo showed newly reduced EF 40 to 45% with diastolic dysfunction and hypokinesis of the inferior wall along with elevated pulmonary artery systolic pressure of 70 mmHg. Patient significantly improved with IV diuresis and plan per cardiology was to repeat echo in about 6 weeks after discharge. Patient was discharged on Lasix 20 mg twice daily. Patient reported good urine output at home but had progressively worsening shortness of breath over the past several days. Chest x-ray on admit showed blunting of bilateral costophrenic angles and vascular congestion, and patient was requiring 3 L nasal cannula to maintain appropriate oxygen saturations. BNP more elevated than previous at 1100. Treated with IV Lasix 40 mg every 8 hours while here with good urine output. Was weaned off supplemental oxygen by day of discharge. Transitioned back to p.o. Lasix and will start at higher dose of 40 mg twice daily on discharge. Continue home Coreg. Holding home lisinopril until patient follows up with cardiology. 2. JOSUE ? Creatinine 1.54 on admit, baseline around 1.1. Suspect cardiorenal given volume overload on admit. Diuresed well as noted above but creatinine stayed stable around 1.5-1.7. Ordered BMP for patient to have done early next week to ensure kidney function is improving. Held home lisinopril on discharge. Chronic medical conditions: ? Class III obesity: BMI 50 on admit. Complicated hospital course, care and prognosis. ? Type 2 diabetes mellitus: Treated with sliding scale insulin while inpatient. Okay to resume home glipizide and pioglitazone?metformin. ? Hypothyroidism: TSH mildly low at 0.22 on previous admit. Continue home Synthroid. Further adjustments per PCP as needed. ? Hypertension: Continue home Coreg, held home lisinopril. ? Hyperlipidemia: Continue home statin. Total clinical time spent by myself addressing the patient's medical issues, reviewing all the data, and collaborating with patient's care team: 35 minutes. Physical Exam Const alert, oriented x3 and no apparent distress Constitutional Narrative: Pleasant elderly female, class III obesity, sitting up comfortably in bed, conversing normally, in no acute distress. Stable. General Appearance: cooperative and comfortable HEENT normocephalic, head/scalp atraumatic, hearing grossly normal bilaterally, nasal mucous membranes and turbinates normal and moist oral mucous membranes Eyes PERRL, EOMs intact bilaterally and conjunctivae normal Neck full ROM Chest inspection of chest normal Resp normal respiratory effort and no use of accessory muscles Resp Narrative: Breathing comfortably on room air at rest. Mildly decreased breath sounds at bilateral lung bases with no crackles noted, improved. Cardio regular rate, regular rhythm, no murmurs and peripheral pulses 2+ throughout GI normal to inspection, nondistended, normoactive bowel sounds, soft to palpation, non-tender and non-distended Back/Spine normal ROM Extremity full ROM Extremity Narrative: Trace lower extremity edema noted. Stable. Skin no rashes or lesions noted Psych mental status grossly normal Weight / BMI Weight Weight: 110.1 kg Body Mass Index (BMI) 47.4 ABG / Lab / Microbiology Data 11/02/24 05:52 11/02/24 05:52 Laboratory: Laboratory Results - last 24 hr 11/01/24 16:24: POC Glucose 105 11/01/24 21:22: POC Glucose 143 H 11/02/24 05:52: WBC 7.7, RBC 3.39 L, Hgb 10.1 L, Hct 31.8 L, MCV 93.8, MCH 29.8, MCHC 31.8 L, RDW Std Deviation 50.3 H, RDW Coeff of Leif 15.5 H, Plt Count 244, MPV 9.1, Sodium 140, Potassium 3.9, Chloride 107, Carbon Dioxide 29.0, Anion Gap 4 L, BUN 33 H, Creatinine 1.72 H, Estim Creat Clear Calc 32.32, Est GFR (MDRD) Af Amer 37 L, Est GFR (MDRD) Non-Af 31 L, BUN/Creatinine Ratio 19.2, Glucose 111 H, Calcium 8.6 11/02/24 06:14: POC Glucose 99 11/02/24 11:41: POC Glucose 142 H Radiography Diagnostic Testing: Radiology Impression Chest X-Ray 11/02/24 07:54 IMPRESSION: Minimal residual blunting of the left costophrenic angle. Electronically Signed: Santos Francisco MD at 12:40 EST , D/C Instructions Discharge Diet: 4000 mg Sodium Diet and Carb Control Diet DC O2, CPAP, BIPAP Needs RN Home O2 Qualification: Home O2 Qualification: Is the patient on home oxygen No 11/02/24 07:53 Home O2 Qualification: AT REST 1- Pulse Ox at rest 93 11/02/24 07:53 2- Pulse Ox at rest 97 11/01/24 14:35 2- Oxygen Flow Rate at rest 2 11/01/24 14:35 Home O2 Qualification: WITH AMBULATION 1- Pulse Ox with ambulation 89 11/02/24 07:53 1- Oxygen Flow Rate with 0 11/02/24 07:53 ambulation Home O2 Discharge instructions: No Meaningful Use Info Meaningful Use Meaningful Use Diagnoses (Choose all that apply): CHF CHF BRETT/ARB ordered at discharge?: No Reason BRETT/ARB not ordered?: Worsening renal disease Documented LVEF (%): 45 Ischemic Stroke Statin Dosing Therapy Reference: STATIN DOSE THERAPY REFERENCE: * Patients > 75 years receive moderate or high dose statin therapy. * Patients 75 years or YOUNGER should receive HIGH intensity statin dose unless contraindicated. You will be required to document reason for non-treatment if statin daily dose does not meet guidelines. HIGH DOSE STATIN THERAPY DAILY Atorvastatin > than or = to 40 mg Rosuvastatin > than or = to 20 mg Amlodipine + Atorvastatin > than or = to 2.5/40 mg Ezetimibe + Simvastatin 10/80 mg Simvastatin 80mg Discharge Plan Admission Admit Date/Time: 10/30/24 18:01 Primary Reason for Your Visit: Worsening shortness of breath Attending Provider: Seth Garnica Primary Care Provider: Donal Castle Consulting Providers: Aparna Mabry Instructions Additional Instructions / Restrictions: ? Please call the cardiology office to schedule follow-up appointment within the next few weeks. ? Please have a repeat lab drawn early next week to check your kidney function. Discharge Orders/Prescriptions Prescriptions: New furosemide [Lasix] 40 mg tablet 40 mg PO BID 30 Days Qty: 60 0RF Continued levothyroxine [Synthroid] 100 mcg tablet 100 mcg PO DAILY atorvastatin 10 mg tablet 10 mg PO QHS glipizide 2.5 mg tablet extended release 24hr 2.5 mg PO DAILY pioglitazone-metformin 15-500 mg tablet 1 tab PO BID carvedilol 6.25 mg Tablet 6.25 mg PO BIDCM 30 Days Qty: 60 2RF aspirin 81 mg Tablet,Chewable 81 mg PO DAILYCM 90 Days Qty: 90 0RF Held lisinopril 10 mg tablet 10 mg PO DAILY 30 Days Qty: 30 2RF Hold Instructions: Resume on 12/11/24. Hold until you see cardiology in the office for follow-up. Discontinued furosemide 20 mg Tablet 20 mg PO BIDLX 30 Days Qty: 60 2RF amoxicillin-pot clavulanate 875-125 mg tablet 1 tab PO BID 3 Days Qty: 6 0RF Other Ambulatory Orders: Basic Metabolic Profile (BMP) (Routine) Timeframe: 3 Days Facility: [facility] - Location: Laboratory Ordered By: Dr. Seth Garnica Referrals / Follow Up: Donal Castle MD [Primary Care Provider] - 11/10/24 11:50 am Ramone Adams MD [Med Staff - Active Staff] - 11/24/24 1:00 pm (Appointment is with Janene Renner ) Disposition Disposition (needs filled in before D/C Order can be placed): Home, Self Care Charges/Coding Visit Charges Inpatient E&M: 23576 Disch Hosp >30min
[2024-11-02 11:59] LABS: Bedside Glucose 142 mg/dL (74-106)
[2024-11-02 12:21] VITALS: O2SAT 86
--- NOTE | 2024-11-02 13:07 | CASEMGMT ---
Patient has order for discharge. RN CM in to patient's room to discuss needs at discharge. Patient did not qualify for home oxygen. Patient denies needs or help at discharge. Patient had no further questions or concerns.
== END 2024-11-02 14:01 | disposition home or self-care (01) | DRG 291 ==
LOC: ED 17:53 → PCU 18:04
PROVIDERS: Admitting Provider Internal Medicine; Emergency Provider Emergency Medicine; PCP Family Medicine; Visit Provider Hospitalist
DX: I11.0 Hypertensive heart disease with heart failure (principal); J18.9 Pneumonia, unspecified organism; I50.21 Acute systolic (congestive) heart failure; I24.89 Other forms of acute ischemic heart disease; Z68.43 Body mass index [BMI] 50.0-59.9, adult; N17.9 Acute kidney failure, unspecified; I27.20 Pulmonary hypertension, unspecified; E11.9 Type 2 diabetes mellitus without complications; E03.9 Hypothyroidism, unspecified; E66.01 Morbid (severe) obesity due to excess calories; E78.00 Pure hypercholesterolemia, unspecified; Z79.84 Long term (current) use of oral hypoglycemic drugs; Z79.82 Long term (current) use of aspirin; Z79.899 Other long term (current) drug therapy; Z86.73 Personal history of transient ischemic attack (TIA), and cerebral infarction without residual deficits
CPT/HCPCS: 36415; 71045; 71046; 71275; 80048; 80053; 82962; 83880; 84484; 85025; 85027; 85379; 93005; 97116; 97162; 97166; 97530; 97535; 99285; Q9967; A4216; J1940

== ENCOUNTER → 2024-11-06 | Outpatient (CLI) | payer MEDICARE, SELFPAY ==
[2024-11-06 16:26] LABS: Anion Gap 9 (5-15); BUN 46 mg/dL (7-18); Calcium,Total 8.7 mg/dL (8.5-10.1); Chloride 105 mmol/L (98-107); Creatinine, Serum 2.09 mg/dL (0.55-1.02); EST Glomerular Filtration Rate 25 mL/min (>60); Est Glom Filt Rate - Afr Amer 30 mL/min (>60); Glucose 134 mg/dL (74-106); Potassium 3.5 mmol/L (3.5-5.1); Sodium Level 139 mmol/L (136-145)
== END | disposition home or self-care (01) ==
PROVIDERS: PCP Family Medicine; Referring Provider Hospitalist; Visit Provider Hospitalist
DX: R19.7 Diarrhea, unspecified (principal)
CPT/HCPCS: 36415; 80048

== ENCOUNTER → 2024-11-10 | Outpatient (CLI) | payer MEDICARE, SELFPAY ==
[2024-11-10 15:42] LABS: Anion Gap 9 (5-15); BUN 60 mg/dL (7-18); BUN/Creat Ratio 18.7 RATIO (10-20); Calcium,Total 8.8 mg/dL (8.5-10.1); Chloride 107 mmol/L (98-107); Creatinine, Serum 3.21 mg/dL (0.55-1.02); EST Glomerular Filtration Rate 15 mL/min (>60); Est Glom Filt Rate - Afr Amer 18 mL/min (>60); Glucose 165 mg/dL (74-106); Potassium 3.6 mmol/L (3.5-5.1); Sodium Level 137 mmol/L (136-145)
== END | disposition home or self-care (01) ==
LOC: MTLAB 12:45
PROVIDERS: PCP Family Medicine; Referring Provider Family Medicine; Visit Provider Family Medicine
DX: E55.9 Vitamin D deficiency, unspecified (principal)
CPT/HCPCS: 36415; 80048; 82306

== ENCOUNTER → 2024-12-01 | Outpatient (CLI) | payer MEDICARE, SELFPAY ==
[2024-12-01 12:09] LABS: Hematocrit 34.7 % (37-47); Hemoglobin 10.5 g/dL (12.0-15.0); Mean Corp Hgb Conc 30.3 g/dL (32-36); Mean Corpuscular Hgb 28.3 pg (27.0-32.0); Mean Corpuscular Volume 93.5 fL (81-99); Mean Platelet Vol. 8.6 fl (6.2-12.0); Platelet Count 394 K/mm3 (150-450); RBC Distribution Width CV 15.9 % (11.6-14.6); RBC Distribution Width SD 54.7 fl (35.1-43.9); Red Blood Count 3.71 M/mm3 (4.2-5.4); White Blood Count 10.8 K/mm3 (4.4-11.0)
[2024-12-01 12:45] LABS: BNP,B-Type NATRIURETIC PEPTIDE 1039.1 pg/mL (0-100)
[2024-12-01 12:47] LABS: ALB/GLOB Ratio 0.7 RATIO (0.9-2.4); AST(SGOT) 15 U/L (15-37); Alanine Aminotransfer ALT/SGPT 10 U/L (13-56); Albumin, Serum 2.6 g/dL (3.2-5.0); Alkaline Phosphatase 94 U/L (45-117); Anion Gap 5 (5-15); BUN 32 mg/dL (7-18); BUN/Creat Ratio 18.5 RATIO (10-20); Calcium,Total 9.1 mg/dL (8.5-10.1); Chloride 116 mmol/L (98-107); Creatinine, Serum 1.73 mg/dL (0.55-1.02); EST Glomerular Filtration Rate 31 mL/min (>60); Est Glom Filt Rate - Afr Amer 37 mL/min (>60); Globulin 3.8 g/dL (2.2-4.2); Glucose 116 mg/dL (74-106); Potassium 5.7 mmol/L (3.5-5.1); Protein, Total 6.4 g/dL (6.4-8.2); Sodium Level 142 mmol/L (136-145)
== END | disposition home or self-care (01) ==
LOC: LAB 11:22
PROVIDERS: PCP Family Medicine; Referring Provider Internal Medicine Cardiovascular Disease; Visit Provider Internal Medicine Cardiovascular Disease
DX: R06.09 Other forms of dyspnea (principal); I51.9 Heart disease, unspecified

== ENCOUNTER → 2024-12-08 | Outpatient (CLI) | payer MEDICARE, SELFPAY ==
[2024-12-08 14:59] LABS: Anion Gap 5 (5-15); BUN 34 mg/dL (7-18); BUN/Creat Ratio 20.4 RATIO (10-20); Chloride 113 mmol/L (98-107); Creatinine, Serum 1.67 mg/dL (0.55-1.02); EST Glomerular Filtration Rate 32 mL/min (>60); Est Glom Filt Rate - Afr Amer 39 mL/min (>60); Glucose 110 mg/dL (74-106); Sodium Level 142 mmol/L (136-145)
== END | disposition home or self-care (01) ==
LOC: LAB 13:23
PROVIDERS: PCP Family Medicine; Referring Provider Internal Medicine Cardiovascular Disease; Visit Provider Internal Medicine Cardiovascular Disease
DX: N18.32 Chronic kidney disease, stage 3b (principal)
CPT/HCPCS: 36415; 80048

== ENCOUNTER → 2024-12-12 | Outpatient (CLI) | payer MEDICARE, SELFPAY ==
--- NOTE | 2024-12-12 13:47 | ECHOLC_ITS ---
Version 2 Reason For Study: CHF Procedure This was a limited 2D transthoracic echocardiogram. Contrast injection was performed. Exam performed in department. Left Ventricle Moderately dilated left ventricle. The left ventricular ejection fraction is 30 %. There is moderate to severe global hypokinesis of the left ventricle. Right Ventricle Normal RV size. Normal systolic function. Atria Normal left atrium. Normal right atrium. Mitral Valve Bileaflet diffuse mitral valve thickening. Moderate (2+) eccentric mitral valve insufficiency. Tricuspid Valve Normal tricuspid valve. Moderate (2+) tricuspid valve insufficiency. Pulmonary artery systolic pressure is 65 mmHg. Aortic Valve The aortic valve is not well visualized. Pulmonic Valve Normal pulmonic valve. Great Vessels Normal aortic root. The pulmonary artery is normal size. Normal inferior vena cava. Pericardium/Pleural No pericardial effusion. Medication Diluted definity 2ml given slow IV push to enhance endocardial definition. MMode/2D Measurements & Calculations LVIDd: 6.0 cm IVSd: 1.2 cm LVIDs: 5.3 cm LVPWd: 0.88 cm LVAd ap4: 36.8 cm2 FS: 10.7 % LVLd ap4: 8.7 cm EDV(MOD-sp4): 125.2 ml EDV(sp4-el): 131.9 ml LVAs ap4: 29.3 cm2 LVLs ap4: 8.5 cm ESV(MOD-sp4): 86.0 ml ESV(sp4-el): 85.6 ml EF(MOD-sp4): 31.3 % EF(sp4-el): 35.1 % LVAd ap2: 40.3 cm2 SV(MOD-sp4): 39.2 ml SV(MOD-sp2): 55.7 ml LVLd ap2: 8.1 cm SI(MOD-sp4): 19.6 ml/m2 SI(MOD-sp2): 27.9 ml/m2 EDV(MOD-sp2): 167.9 ml EDV(sp2-el): 171.2 ml LVAs ap2: 31.9 cm2 LVLs ap2: 7.4 cm ESV(MOD-sp2): 112.2 ml ESV(sp2-el): 116.6 ml EF(MOD-sp2): 33.2 % SV(sp4-el): 46.2 ml Doppler Measurements & Calculations TR max aster: 392.2 cm/sec TR max P.5 mmHg ECHO/Echo Limited w/Contrast Interpretation Summary The left ventricular ejection fraction is 30 %. Moderately dilated left ventricle. Pulmonary artery systolic pressure is 65 mmHg. Contrast injection was performed. Compared to previous study, the left ventricu lar systolic function has worsened.. Ordering Physician: Joao Ramirez Referring Physician: Donal Castle Performed By: Marj Lainez, MITZI, RVT
== END | disposition home or self-care (01) ==
LOC: CVS 13:47
PROVIDERS: PCP Family Medicine; Referring Provider Internal Medicine Cardiovascular Disease; Visit Provider Internal Medicine Cardiovascular Disease
DX: I51.9 Heart disease, unspecified (principal)
CPT/HCPCS: 93308; Q9957; A4216; C8924

== ENCOUNTER → 2025-01-11 | Outpatient (CLI) | payer MEDICARE, SELFPAY ==
[2025-01-11 12:27] LABS: Absolute Lymphocyte Count 2.08 X10^3/uL (0.83-4.51); Absolute Neutrophil Count 5.1 X10^3/uL (2.0-7.7); Basophil# 0.05 X10^3/uL; Basophil% 0.6 % (0-1); Eosinophil# 0.18 X10^3/uL; Eosinophils% 2.3 % (0-5); Hematocrit 37.6 % (37-47); Hemoglobin 11.4 g/dL (12.0-15.0); Lymphocyte # 2.08 X10^3/ul (0.83-4.51); Mean Corp Hgb Conc 30.3 g/dL (32-36); Mean Corpuscular Hgb 27.9 pg (27.0-32.0); Mean Corpuscular Volume 92.2 fL (81-99); Mean Platelet Vol. 10.1 fl (6.2-12.0); Monocyte# 0.55 X10^3/uL; Monocyte% 6.9 % (0-10); NRBC Flagged by Analyzer 0 % (0-5); Neutrophil # 5.11 X10^3/uL (2.7-7.7); Neutrophil % 63.8 % (47-70); Platelet Count 314 K/mm3 (150-450); RBC Distribution Width CV 15.9 % (11.6-14.6); Red Blood Count 4.08 M/mm3 (4.2-5.4)
[2025-01-11 13:47] LABS: Anion Gap 16 (5-15); BUN 36 mg/dL (4-19); BUN/Creat Ratio 20.5 RATIO (10-20); Calcium 9.7 mg/dL (7.6-11.0); Carbon Dioxide 20.6 mmol/L (22.0-29.0); Chloride 106 mmol/L (96-108); Creatinine, Serum 1.7 mg/dL (0.6-1.0); EST Glomerular Filtration Rate 30 (>60); Glucose 142 mg/dL (70-99); Potassium 4.6 mmol/L (3.3-5.1); Sodium Level 142 mmol/L (133-145)
== END | disposition home or self-care (01) ==
LOC: MFPLAB 09:58
PROVIDERS: PCP Family Medicine; Referring Provider Family Medicine; Visit Provider Family Medicine
DX: I10 Essential (primary) hypertension (principal); E11.9 Type 2 diabetes mellitus without complications
CPT/HCPCS: 36415; 80048; 85025

== ENCOUNTER → 2025-03-12 | Outpatient (CLI) | payer MEDICARE, SELFPAY ==
[2025-03-12 19:40] LABS: Anion Gap 12 (5-15); BUN 87 mg/dL (4-19); BUN/Creat Ratio 19.4 RATIO (10-20); Calcium,Total 8.7 mg/dL (7.6-11.0); Carbon Dioxide 16.8 mmol/L (21.0-32.0); Chloride 114 mmol/L (98-108); Creatinine, Serum 4.48 mg/dL (0.70-1.20); EST Glomerular Filtration Rate 10 (>60); Glucose 115 mg/dL (70-99); Potassium 6.6 mmol/L (3.3-5.1); Pro- Brain NATRIURETIC PEPTIDE > 70000 pg/mL (<=900); Sodium Level 143 mmol/L (133-145)
== END | disposition home or self-care (01) ==
LOC: LAB 14:55
PROVIDERS: PCP Family Medicine; Referring Provider Student in an Organized Health Care Education/Training Program; Visit Provider Student in an Organized Health Care Education/Training Program
DX: I50.9 Heart failure, unspecified (principal)
CPT/HCPCS: 36415; 80048; 83880

== ENCOUNTER 2025-03-13 13:55 | Inpatient (IN) | payer MEDICARE, SELFPAY ==
[2025-03-13] VITALS (7 sets, daily range): BP systolic 104–144; BP diastolic 57–128; PULSE 53–74; RESP 18–27; TEMP 36.5–37.2; O2SAT 87–96; BMI 51.0; BMI 50.5
--- NOTE | 2025-03-13 14:01 | EKG12_ITS ---
Test Reason : HIGH K Blood Pressure : */* mmHG Vent. Rate : 73 BPM Atrial Rate : 78 BPM P-R Int : * ms QRS Dur : 100 ms QT Int : 386 ms P-R-T Axes : * 117 150 degrees QTcB Int : 425 ms ATRIAL FIBRILLATION Right axis deviation Pulmonary disease pattern Nonspecific T wave abnormality Abnormal ECG When compared with ECG of 30-Oct-2024 15:14, Current undetermined rhythm precludes rhythm comparison, needs review QRS axis Shifted right Nonspecific T wave abnormality, improved in Inferior leads Inverted T waves have replaced nonspecific T wave abnormality in Lateral leads Confirmed by WANDA SANTIAGO, COY ([id number]), marketing editor MIRNA DRAKE ([id number]) on 03/16/2025 8:31:01 AM Referred By: UG/TL Confirmed By: COY MUÑOZ MD
--- NOTE | 2025-03-13 16:16 | EX.ED.DYSGE1 ---
HPI History of Present Illness Chief Complaint: Abn Labs Informant: patient Onset/Context/Timing Onset: Yesterday Context: Gradual Onset Timing: Continuous Quality: Weakness Location: Generalized Worsened by: Nothing Relieved by: Nothing Narrative Narrative: Patient presents with abnormal labs that were noticed yesterday. 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 Patient states they called her today and told her to come to the emergency department because her potassium was high and her kidney function tests were worse. Patient states she feels weak all over. Patient states nothing makes her symptoms better and nothing makes them worse. Patient admits to some shortness of breath. [facility] Medical History Congestive heart failure Hypothyroidism Osteoporosis Morbid obesity with BMI of 45.0-49.9, adult Wears glasses Post-menopausal Thyroid disease Diabetes Uses wheelchair Ambulates with cane Arthritis High cholesterol Back pain TIA (transient ischemic attack) Dietary restriction Non-smoker History of pain when walking History of transesophageal echocardiography (DESTIN) Cardiology follow-up encounter Hypertension Hypertension Diabetes Home Medications ?Medication ?Instructions ?Recorded ?Last Taken ?Type atorvastatin 10 mg tablet 10 mg PO QHS cholesterol 08/31/22 03/12/25 History levothyroxine 100 mcg tablet 100 mcg PO DAILY thyroid 08/31/22 03/13/25 History (Synthroid) aspirin 81 mg chewable tablet 81 mg PO DAILYCM 90 days #90 tabs 10/21/24 03/13/25 Rx carvedilol 6.25 mg tablet (Coreg) 6.25 mg PO BID #60 tabs 12/01/24 03/13/25 Rx dapagliflozin propanediol 10 mg 10 mg PO QDAY #30 tabs 03/12/25 Unknown Rx tablet (Farxiga) furosemide 40 mg tablet 40 mg PO QAM #30 tabs 03/12/25 03/13/25 Rx metformin 500 mg tablet 500 mg PO BID 03/12/25 03/13/25 History Allergy/AdvReac Type Severity Reaction Status Date / Time No Known Allergies Allergy Verified 03/13/25 13:58 Family History Mother Hypertension Father Heart disease Surgical History Hx of colonoscopy Hx of cholecystectomy H/O: hysterectomy Social History household members: spouse Smoking Status: Never smoker alcohol intake: never substance use type: does not use caffeine: No ROS ROS ED Constitutional Constitutional ED: Denies chills or fever(s) Eyes Eyes: Denies blurry vision or change in vision ENT ENT ED: Denies rhinorrhea or sore throat Cardiovascular Cardiovascular: Denies chest pain or palpitations Respiratory/Chest Respiratory/Chest: Reports dyspnea; Denies cough Gastrointestinal Gastrointestinal: Denies nausea or vomiting Genitourinary Genitourinary ED: Denies dysuria or hematuria Musculoskeletal Musculoskeletal: Denies back pain or neck pain Integumentary Denies abscess or rash Neurologic Neurologic: Reports weakness; Denies headache(s) Allergic/Immunologic Allergic/Immunologic ED: Denies mouth swelling or urticaria EXAM Physical Exam Const Vital Signs: 03/13/25 13:58 03/13/25 15:46 03/13/25 16:00 Temperature 98.9 F Temperature Source Oral Pulse Rate 74 58 L Respiratory Rate 20 H 27 H Respiratory Effort Labored Blood Pressure 104/65 119/57 L Blood Pressure Mean 78 77 Pulse Ox 93 92 Oxygen Delivery Method Room Air Positive well nourished and well developed Constitutional Narrative: BMI is 51.0 General Appearance ED: well developed and NAD HEENT Reports dry mucous membranes Mouth ED: Yes dry mucous membranes Mouth: dry mucous membranes Neck supple and no JVD Resp normal respiratory effort Auscultation: diminished lung sounds bilateral lower Cardio regular rate and regular rhythm GI non-tender and non-distended Palpation: soft Extremity General Extremety ED: Yes edema; Negative for tenderness General Extremity: edema Neuro oriented x3, CN's II-XII intact bilaterally and no sensory deficits noted Motor Exam: strength 5/5 throughout Psych mental status grossly normal MDM MDM MDM Narrative Medical decision making narrative: Differential diagnosis includes acute kidney injury, electrolyte abnormality, cardiac dysrhythmia, cardiac ischemia, pneumonia, bronchitis congestive heart failure, and urinary tract infection. EKG will be obtained to assess for cardiac dysrhythmia and cardiac ischemia. Chest x-ray will be obtained to assess for pneumonia, congestive heart failure, pneumothorax. CBC will be obtained to assess for leukocytosis and anemia. Basic metabolic profile will be obtained to assess for electrolyte abnormality and renal function. Magnesium and phosphorus will bring obtained to assess for hypomagnesemia and hypophosphatemia. Urinalysis will be obtained to assess for urinary tract infection and hematuria. History & Record Review Additional record(s) reviewed:: Prior outpatient record and Prior labs Lab Data Attestation: I reviewed the patient's lab results. Lab results narrative: CBC was reviewed and was essentially within normal limits. Basic metabolic profile was reviewed. Potassium was elevated at 6.7. BUN was elevated at 88 and creatinine was 5.1. These are increased from patient's baseline. Phosphorus was reviewed and was elevated at 5.5. Magnesium was reviewed and was elevated 2.6. High-sensitivity troponin was reviewed and was elevated at 159. 2-hour repeat high-sensitivity troponin was reviewed and was elevated at 159. BNP was reviewed and was greater than 70,000. Labs: Laboratory Results - last 24 hr 03/13/25 03/13/25 15:11 17:30 WBC 7.7 RBC 4.33 Hgb 11.3 L Hct 38.7 MCV 89.4 MCH 26.1 L MCHC 29.2 L RDW Std Deviation 57.1 H RDW Coeff of Leif 17.4 H Plt Count 241 MPV 9.4 Immature Gran % (Auto) 0.600 Neut % (Auto) 79.2 H Lymph % (Auto) 11.5 L [place] % (Auto) 7.8 Eos % (Auto) 0.6 Baso % (Auto) 0.3 Absolute Neuts (auto) 6.1 Absolute Lymphs (auto) 0.89 Nucleated RBC % 1.9 Sodium 141 Potassium 6.7 H* Chloride 114 H Carbon Dioxide 16.6 L Anion Gap 11 BUN 88 H Creatinine 5.10 H Estim Creat Clear Calc 11.41 L Est GFR (MDRD) Non-Af 8 L BUN/Creatinine Ratio 17.3 Glucose 138 H Calcium 8.5 Phosphorus 5.5 H Magnesium 2.6 H Troponin T High Sens 159 H* Troponin T Hi Sens 2 Hr 159 H* NT [place]NP II > 44083 H Urine Color Yellow Urine Clarity Cloudy Urine pH 5.0 Ur Specific [place] 1.025 Urine Protein 100 H Urine Glucose (UA) Normal Urine Ketones Negative Urine Occult Blood 150 H Urine Nitrite Negative Urine Bilirubin 1 H Urine Urobilinogen Normal Ur Leukocyte Esterase 500 H Radiography Chest X-Ray - ED: 2 View, Read by ED Physician, Read by Radiologist and Right Effusion Diagnostic Testing: Clinical Impression(s) from Imaging Studies Chest X-Ray 03/13/25 16:45 IMPRESSION: 1. Limited hypoinflated exam. Cardiomegaly with central vascular prominence and at least [id number] RIGHT pleural effusion. 2. RIGHT-sided airspace disease adjacent to the effusion may reflect compressive atelectasis and/or pneumonia. Follow-up to radiographic resolution recommended. 3. Additional description as above. Reading Location: [facility] [place] and lateral chest x-ray was obtained. There are 2 views. On my independent interpretation, lung ye show vascular prominence and small to moderate right pleural effusion. There is poor inspiratory effort. There is normal cardiac silhouette. Bony thorax is normal. Radiologist also interpreted the x-ray and agrees. EKG Initial EKG: Attestation: I personally reviewed and interpreted this EKG as follows: Interpretation: Sinus Rhythm (73) and Non-Specific ST Changes Comments: EKG was obtained. On my independent interpretation, it showed a normal sinus rhythm with a rate of 73. CT interval, QRS interval, and QTc intervals were all normal. There is borderline right axis deviation at 117. There are nonspecific ST-T wave changes. Prior EKG tracings: available for review Prior: Unchanged (10/30/2024) Management Discussion w/another healthcare provider: Hospitalist and Non Destructive Evaluation Manager (Dr. Linares) Treatment and Re-Evaluation :: Patient was advised of her findings. Patient was given calcium chloride, insulin, and dextrose for her hyperkalemia. Case was discussed with Dr. Linares from cardiology. He recommended starting patient on a heparin drip. However, with her elevated BUN and creatinine, he did not recommend administering aspirin at this time. Case was discussed with the hospitalist. He will admit the patient to his service. Patient and spouse understand and are agreeable with the plan. All questions were answered. Discharge Plan Triage Chief Complaint: Abn Labs ED Provider: Fitz Deleon Dx/Rx/DC Orders Clinical Impression: Acute kidney injury superimposed on chronic kidney disease, Diabetes, Elevated troponin Prescriptions: No Action levothyroxine [Synthroid] 100 mcg tablet 100 mcg PO DAILY atorvastatin 10 mg tablet 10 mg PO QHS carvedilol [Coreg] 6.25 mg tablet 6.25 mg PO BID Qty: 60 11RF Rx Instructions: must administer with a meal/food metformin 500 mg tablet 500 mg PO BID furosemide 40 mg tablet 40 mg PO QAM Qty: 30 0RF dapagliflozin propanediol [Farxiga] 10 mg tablet 10 mg PO QDAY Qty: 30 3RF Patient Comments: PT HAS NOT PICKED UP YET aspirin 81 mg Tablet,Chewable 81 mg PO DAILYCM 90 Days Qty: 90 0RF Primary Care Provider: Donal Castle Referrals: Donal Castle MD [Primary Care Provider] - Print Language: Spanish Disposition Disposition: Acute Care Hospital [facility]
--- NOTE | 2025-03-13 16:25 | EKG12_ITS ---
Test Reason : Blood Pressure : */* mmHG Vent. Rate : 57 BPM Atrial Rate : * BPM P-R Int : * ms QRS Dur : 112 ms QT Int : 422 ms P-R-T Axes : * 24 139 degrees QTcB Int : 410 ms Junctional rhythm Low voltage QRS Incomplete left bundle branch block ST & T wave abnormality, consider lateral ischemia Abnormal ECG When compared with ECG of 13-Mar-2025 14:01, MANUAL COMPARISON REQUIRED DATA IS UNCONFIRMED Confirmed by WANDA SANTIAGO, COY ([id number]), publishing editor MIRNA DRAKE ([id number]) on 03/14/2025 1:22:42 PM Referred By: JANINE Confirmed By: COY MUÑOZ MD
[2025-03-13 16:41] LABS: Absolute Lymphocyte Count 0.89 X10^3/uL (0.83-4.51); Absolute Neutrophil Count 6.1 X10^3/uL (2.0-7.7); Basophil# 0.02 X10^3/uL; Basophil% 0.3 % (0-1); Eosinophil# 0.05 X10^3/uL; Eosinophils% 0.6 % (0-5); Hematocrit 38.7 % (37-47); Hemoglobin 11.3 g/dL (12.0-15.0); Lymphocyte # 0.89 X10^3/ul (0.83-4.51); Lymphocyte % 11.5 % (19-41); Mean Corp Hgb Conc 29.2 g/dL (32-36); Mean Corpuscular Hgb 26.1 pg (27.0-32.0); Mean Corpuscular Volume 89.4 fL (81-99); Mean Platelet Vol. 9.4 fl (6.2-12.0); Monocyte% 7.8 % (0-10); NRBC Flagged by Analyzer 1.9 % (0-5); Neutrophil # 6.12 X10^3/uL (2.7-7.7); Neutrophil % 79.2 % (47-70); Platelet Count 241 K/mm3 (150-450); RBC Distribution Width CV 17.4 % (11.6-14.6); RBC Distribution Width SD 57.1 fl (35.1-43.9); Red Blood Count 4.33 M/mm3 (4.2-5.4); White Blood Count 7.7 K/mm3 (4.4-11.0)
--- NOTE | 2025-03-13 16:45 | RAD_ITS ---
PROCEDURE: CHEST PA AND LATERAL (RADCXR), 03/13/2025 REASON FOR EXAM: DYSPNEA TECHNIQUE: PA and lateral views of the chest were obtained. COMPARISON: 11/02/2024 and prior FINDINGS: Exam limited by hypoinflation and soft tissue attenuation. Heart: partially obscured, grossly similar cardiomegaly. Mediastinum: Partially obscured. Grossly similar contours. Trace atherosclerosis in the arch. Central vascular prominence suspected. Lungs/pleura: Hypoinflation with vascular crowding. At least [id number] RIGHT pleural effusion with fluid extending into the fissures. Adjacent RIGHT mid and lower lung airspace disease. No sizable LEFT pleural or visible pneumothorax. Bones: Suspect demineralization.. Lines and support devices: None. Other: None. RAD/Chest PA and Lateral IMPRESSION: 1. Limited hypoinflated exam. Cardiomegaly with central vascular prominence and at least [id number] RIGHT pleural effusion. 2. RIGHT-sided airspace disease adjacent to the effusion may reflect compressiv e atelectasis and/or pneumonia. Follow-up to radiographic resolution recommended. 3. Additional description as above. Reading Location: [id number]
[2025-03-13 17:24] LABS: Anion Gap 11 (5-15); BUN 88 mg/dL (4-19); BUN/Creat Ratio 17.3 RATIO (10-20); Calcium,Total 8.5 mg/dL (7.6-11.0); Carbon Dioxide 16.6 mmol/L (21.0-32.0); Chloride 114 mmol/L (98-108); EST Glomerular Filtration Rate 8 (>60); Estimated Creatinine Clearance 11.41 ml/min (50-250); Glucose 138 mg/dL (70-99); Potassium 6.7 mmol/L (3.3-5.1); Pro- Brain NATRIURETIC PEPTIDE > 70000 pg/mL (<=900); Sodium Level 141 mmol/L (133-145)
[2025-03-13 17:30] LABS: Magnesium 2.6 mg/dL (1.5-2.2); Phosphorus 5.5 mg/dL (2.7-4.5)
[2025-03-13 17:38] LABS: Mucous, Urine 0 SEEN /hpf (<or=2+)
[2025-03-13] MEDS: Calcium Chloride 1 GM/10 ML Syringe IV (17:46)
[2025-03-13] MEDS: Dextrose 10%-Water 250 ML 999 ML IV (17:46)
[2025-03-13 17:50] LABS: Troponin T High Sensitivity 159 ng/L (<=14)
[2025-03-13 18:00] LABS: Color, Urine Yellow (Yellow); Glucose, Dipstick Normal (Normal); Ketone-Dipstick Negative (Negative); Leukocyte Esterase-Dipstick 500 /ul (Negative); Nitrite-Dipstick Negative (Negative); Occult Blood-Urine 150 /ul (Negative); Protein-Dipstick 100 mg/dl (Negative); Specific Gravity, Urine 1.025 (1.002-1.030); Urine Clarity Cloudy (Clear); Urine Urobilinogen Normal (Normal)
[2025-03-13 18:02] LABS: Urine Bilirubin Dipstick 1 mg/dL (Negative)
[2025-03-13 18:13] LABS: Troponin T High Sens 2 HR 159 ng/L (<=14)
[2025-03-13] MEDS: Insulin Lispro 10 UNIT in Syringe 0 ML 6 UNIT IV (18:27)
[2025-03-13 18:34] LABS: Bacteria 4+ /hpf (None Seen)
[2025-03-13 18:36] LABS: White Blood Cells 50-100 SEEN /hpf (0-5)
[2025-03-13 18:37] LABS: Squamous Epithelial Cells - UA 10-25 SEEN /hpf (5-10)
[2025-03-13 18:38] LABS: Red Blood Cells-Urine 5-10 SEEN /hpf (0-5); Transitional Epithelial - Ur 0-5 SEEN /hpf (0-5)
[2025-03-13 18:38] LABS: Bedside Glucose 234 mg/dL (74-106)
--- NOTE | 2025-03-13 18:39 | PCM.HP.STD ---
HPI - General General Date of Admission: 03/13/25 HPI Narrative MISAEL MEDINA, is a 74 F who presents to the hospital with fatigue and abnormal labs. She states that over the last month she has not been feeling great and has not been eating very well, she had an appointment with cardiology yesterday because of her systolic cardiomyopathy and obtained lab work and called her today send she did present to the ER. She had acute renal failure yesterday her creatinine was 4.48 and her new baseline since her last admission in October is around 1.6-1.7, today in the ER her creatinine is 5.1. It is challenging to discern whether this is intrinsically renal or prerenal, she does not look significantly volume overloaded though she still has peripheral edema but she thinks it looks better than it normally does. Yesterday she was increased to 40 mg of Lasix and she had taken it yesterday however this morning she has not taken any Lasix. She denies any lightheadedness or dizziness, no chest pain, her proBNP is elevated to greater than 70,000 but she was not all that hypoxic in the ER and she is not feeling short of breath, though she does have a small to moderate right pleural effusion on chest x-ray, also her initial troponin was 159 but her second troponin 2 hours later was also 159 and given the lack of anginal symptoms we will hold off on a heparin drip but will consult cardiology for assistance on the inpatient side. She denies any nausea, or vomiting, or diarrhea. [facility] Medical History Congestive heart failure Hypothyroidism Osteoporosis Morbid obesity with BMI of 45.0-49.9, adult Wears glasses Post-menopausal Thyroid disease Diabetes Uses wheelchair Ambulates with cane Arthritis High cholesterol Back pain TIA (transient ischemic attack) Dietary restriction Non-smoker History of pain when walking History of transesophageal echocardiography (DESTIN) Cardiology follow-up encounter Hypertension Hypertension Diabetes Home Medications ?Medication ?Instructions ?Recorded ?Last Taken ?Type atorvastatin 10 mg tablet 10 mg PO QHS cholesterol 08/31/22 03/12/25 History levothyroxine 100 mcg tablet 100 mcg PO DAILY thyroid 08/31/22 03/13/25 History (Synthroid) aspirin 81 mg chewable tablet 81 mg PO DAILYCM 90 days #90 tabs 10/21/24 03/13/25 Rx carvedilol 6.25 mg tablet (Coreg) 6.25 mg PO BID #60 tabs 12/01/24 03/13/25 Rx dapagliflozin propanediol 10 mg 10 mg PO QDAY #30 tabs 03/12/25 Unknown Rx tablet (Farxiga) furosemide 40 mg tablet 40 mg PO QAM #30 tabs 03/12/25 03/13/25 Rx metformin 500 mg tablet 500 mg PO BID 03/12/25 03/13/25 History Allergy/AdvReac Type Severity Reaction Status Date / Time No Known Allergies Allergy Verified 03/13/25 13:58 Family History Mother Hypertension Father Heart disease Surgical History Hx of colonoscopy Hx of cholecystectomy H/O: hysterectomy Social History household members: spouse Smoking Status: Never smoker alcohol intake: never substance use type: does not use caffeine: No ROS Constitutional Constitutional: Reports fatigue and malaise; Denies chills or fever(s) Eyes Eyes: Denies blurry vision ENT HEENT: Denies headache(s) or nasal discharge Cardiovascular Cardiovascular: Denies chest pain, dyspnea on exertion or syncope Respiratory/Chest Respiratory/Chest: Denies cough, shortness of breath at rest or shortness of breath with exertion Gastrointestinal Gastrointestinal: Denies constipation, diarrhea, nausea or vomiting Genitourinary Genitourinary: Denies dysuria Neurologic Neurologic: Denies focal weakness, numbness or tremor(s) Psychiatric Psychiatric: Denies anxiety or depression Vital Signs Vital Signs Vital Signs: 03/13/25 13:58 03/13/25 15:46 03/13/25 16:00 Temperature 98.9 F Temperature Source Oral Pulse Rate 74 58 L Respiratory Rate 20 H 27 H Respiratory Effort Labored Blood Pressure 104/65 119/57 L Blood Pressure Mean 78 77 Pulse Ox 93 92 Oxygen Delivery Method Room Air Oxygen Flow Rate (L/min) 03/13/25 17:48 03/13/25 18:18 03/13/25 18:20 Temperature Temperature Source Pulse Rate 63 Respiratory Rate 20 H Respiratory Effort Blood Pressure 129/70 H Blood Pressure Mean 89 Pulse Ox 87 96 96 Oxygen Delivery Method Room Air Nasal Cannula Nasal Cannula Oxygen Flow Rate (L/min) 2 2 Weight Weight: 261 lb 3.2 oz Body Mass Index (BMI) 51.0 Physical Exam Narrative General: Alert, Oriented x3, Cooperative, No apparent distress HEENT: Atraumatic, PERRLA, EOMI, Normocephalic Oral: Dry mucosa Neck: Supple, No JVD Lungs: Diminished, Normal air movement, No rhonchi, No wheeze, No rales Cardiovascular: Regular rate, Regular Rhythm, Normal S1, Normal S2, No murmurs Abdomen: Soft, Non Tender, Non-Distended, No Hepato-splenomegaly Extremities: Edema, Capillary Refill Less than 3 Seconds Skin: No rashes, No breakdown Musculoskeletal: No Tenderness to Palpation of Joints or Extremities Neurological: No focal neurological deficits, moves all extremities, sensations intact Psych/Mental Status: Normal Affect, Appropriate Results Lab / Micro Data 03/13/25 15:11 03/13/25 15:11 Labs: Laboratory Results - last 24 hr 03/13/25 15:11: WBC 7.7, RBC 4.33, Hgb 11.3 L, Hct 38.7, MCV 89.4, MCH 26.1 L, MCHC 29.2 L, RDW Std Deviation 57.1 H, RDW Coeff of Leif 17.4 H, Plt Count 241, MPV 9.4, Immature Gran % (Auto) 0.600, Neut % (Auto) 79.2 H, Lymph % (Auto) 11.5 L, [place] % (Auto) 7.8, Eos % (Auto) 0.6, Baso % (Auto) 0.3, Absolute Neuts (auto) 6.1, Absolute Lymphs (auto) 0.89, Nucleated RBC % 1.9, Sodium 141, Potassium 6.7 H*, Chloride 114 H, Carbon Dioxide 16.6 L, Anion Gap 11, BUN 88 H, Creatinine 5.10 H, Estim Creat Clear Calc 11.41 L, Est GFR (MDRD) Non-Af 8 L, BUN/Creatinine Ratio 17.3, Glucose 138 H, Calcium 8.5, Phosphorus 5.5 H, Magnesium 2.6 H, Troponin T High Sens 159 H*, [place] II > [address] H 03/13/25 17:30: Troponin T Hi Sens 2 Hr 159 H*, Urine Color Yellow, Urine Clarity Cloudy, Urine pH 5.0, Ur Specific [place] 1.025, Urine Protein 100 H, Urine Glucose (UA) Normal, Urine Ketones Negative, Urine Occult Blood 150 H, Urine Nitrite Negative, Urine Bilirubin 1 H, Urine Urobilinogen Normal, Ur Leukocyte Esterase 500 H, Urine RBC 5-10 SEEN, Urine WBC 50-100 SEEN, Ur Squamous Epith Cells 10-25 SEEN, Ur Transition Epith Cell 0-5 SEEN, Urine Bacteria 4+, Urine Mucus 0 SEEN 03/13/25 18:21: POC Glucose 234 H Imaging Radiology Impression Chest X-Ray 03/13/25 16:45 IMPRESSION: 1. Limited hypoinflated exam. Cardiomegaly with central vascular prominence and at least [id number] RIGHT pleural effusion. 2. RIGHT-sided airspace disease adjacent to the effusion may reflect compressive atelectasis and/or pneumonia. Follow-up to radiographic resolution recommended. 3. Additional description as above. Reading Location: [id number] Assessment & Plan Assessment/Plan (1) Acute kidney injury superimposed on chronic kidney disease: PLAN: Plan 1. Acute renal failure/UTI ? It is unclear at this time as to the etiology, urine electrolytes as well as urine and serum osmolality are pending, also obtain a urine urea given the fact that she is on diuretics ? Will consult nephrology ? Pending further labs will hold off of any IV fluids will also hold off on diuretics, I do believe that her proBNP is elevated secondary to her acute renal failure as are her elevated troponins ? She does have a baseline creatinine of 1.6-1.7 ? UA is also somewhat consistent with UTI though it is a little bit of a dirty sample she was given a dose of Rocephin in the ER, will continue her on the inpatient side pending urine culture 2. Chronic systolic CHF with pulmonary hypertension/essential HTN/HLD ? Currently unclear whether or not she is having a CHF exacerbation, she states that her swelling is less and her mucosas are little dry ? Will hold off of diuretics but can resume her Coreg and her aspirin ? She is supposed to be on dapagliflozin however she has not started this medication yet, will not start now with her renal failure ? I do think that her troponin elevation is related to her renal failure and I discussed with cardiology who will see her on consult, about holding off on any heparin drips as she is not having any chest pain or anginal equivalents at this time 3. DM2 ? Will hold her metformin ? Will place her on sign scale insulin ? Accu-Cheks ACHS ? Monitor make adjustments as necessary DVT: Heparin 76 minutes was spent on direct patient care, including documentation as well as chart review and collaboration with colleagues Charges/Coding Visit Charges Inpatient E&M: 90957 Init Hosp L3
[2025-03-13] MEDS: Heparin Injection (Vial) 5,000 UNIT/ML VIAL 9500 UNIT IV (18:44)
[2025-03-13] MEDS: HEPARIN/D5w 25,000 UNITS 25,000 UNITS/250 ML IV.SOLN. 16 UNITS CONT INF (18:46)
[2025-03-13 19:01] LABS: International Normalized Ratio 1.2; Prothrombin Time (Protime)PT. 15.7 SECONDS (11.7-14.9)
[2025-03-13 19:02] LABS: Partial Thromboplast Time 29.4 Seconds (24.1-36.2)
[2025-03-13] MEDS: Ceftriaxone 1 GM/50 ML BAG IV (19:25)
[2025-03-13 20:05] LABS: Osmolality, Serum 330 mOsm/KG (280-301)
[2025-03-13] MEDS: Heparin Injection (Vial) 5,000 UNIT/ML VIAL 5000 UNIT SC (20:51)
[2025-03-13] MEDS: Atorvastatin Calcium 10 MG Tablet PO (20:51)
[2025-03-13 22:15] LABS: Troponin T High Sens 4 HR 160 ng/L (<=14)
[2025-03-13] MEDS: Nystatin Powder 15gm Bottle 1 APPLIC TOPICAL (22:50)
[2025-03-13 23:37] LABS: Urine Chloride 24 mmol/L (Not Establ.); Urine Potassium 20.8 mmol/L (Not Establ.); Urine Sodium < 20 mmol/L (Not Establ.)
[2025-03-14 00:13] LABS: Osmolality, Urine 353 mOsm/KG
[2025-03-14 02:00] VITALS: BP 154/104; PULSE 62; RESP 22; TEMP 36.7; O2SAT 96
[2025-03-14 03:11] VITALS: BMI 50.1
[2025-03-14 05:10] VITALS: BP 113/57; PULSE 70; RESP 18; TEMP 36.6; O2SAT 94
[2025-03-14] MEDS: Levothyroxine 100 MCG Tablet PO (05:11)
[2025-03-14] MEDS: Heparin Injection (Vial) 5,000 UNIT/ML VIAL 5000 UNIT SC ×3 (05:15→20:48)
[2025-03-14 06:30] LABS: Absolute Lymphocyte Count 1.05 X10^3/uL (0.83-4.51); Absolute Neutrophil Count 5.7 X10^3/uL (2.0-7.7); Basophil# 0.02 X10^3/uL; Basophil% 0.3 % (0-1); Eosinophil# 0.08 X10^3/uL; Eosinophils% 1.1 % (0-5); Hematocrit 40.1 % (37-47); Hemoglobin 11.5 g/dL (12.0-15.0); Lymphocyte # 1.05 X10^3/ul (0.83-4.51); Mean Corp Hgb Conc 28.7 g/dL (32-36); Mean Corpuscular Volume 90.5 fL (81-99); Mean Platelet Vol. 9.6 fl (6.2-12.0); Monocyte# 0.58 X10^3/uL; Monocyte% 7.7 % (0-10); NRBC Flagged by Analyzer 1.7 % (0-5); Neutrophil # 5.71 X10^3/uL (2.7-7.7); Neutrophil % 76.2 % (47-70); Platelet Count 232 K/mm3 (150-450); RBC Distribution Width CV 17.4 % (11.6-14.6); RBC Distribution Width SD 57.9 fl (35.1-43.9); Red Blood Count 4.43 M/mm3 (4.2-5.4); White Blood Count 7.5 K/mm3 (4.4-11.0)
[2025-03-14 06:32] LABS: Bedside Glucose 76 mg/dL (74-106)
[2025-03-14 07:52] LABS: Anion Gap 11 (5-15); BUN 92 mg/dL (4-19); BUN/Creat Ratio 17.1 RATIO (10-20); Calcium,Total 8.9 mg/dL (7.6-11.0); Carbon Dioxide 15.1 mmol/L (21.0-32.0); Chloride 114 mmol/L (98-108); Creatinine, Serum 5.38 mg/dL (0.70-1.20); EST Glomerular Filtration Rate 8 (>60); Estimated Creatinine Clearance 10.71 ml/min (50-250); Glucose 79 mg/dL (70-99); Potassium 7.4 mmol/L (3.3-5.1); Sodium Level 140 mmol/L (133-145)
[2025-03-14 08:18] VITALS: BP 126/52; PULSE 62; RESP 16; TEMP 36.3; O2SAT 94
[2025-03-14] MEDS: Sodium Polystyrene Sulfonate 15 GM/60 ML UDC 30 GM PO (08:39)
[2025-03-14] MEDS: Carvedilol 6.25 MG Tablet PO (08:39)
[2025-03-14] MEDS: Aspirin 81 MG TAB.CHEW PO (08:39)
[2025-03-14] MEDS: Dextrose 10%-Water 250 ML 999 ML IV (08:39)
[2025-03-14] MEDS: Insulin Lispro 10 UNIT in Syringe 0 ML 6 UNIT IV (08:44)
[2025-03-14] MEDS: Sodium Bicarbonate 8.4% 50 ML Syringe 50 MEQ IV (08:45)
[2025-03-14] MEDS: Calcium Gluconate 1 GM/10 ML Vial IVP (08:45)
--- NOTE | 2025-03-14 08:47 | PCM.PN.CARD ---
Subjective Subjective Patient seen and evaluated this morning. Appears to be still having some difficulty breathing and appears to be rather anasarcic. Objective Data Vital Signs: Vital Signs Temp Pulse Resp BP Pulse Ox O2 Del Method O2 Flow Rate 97.4 F L 62 16 126/52 H 94 Nasal Cannula 2 03/14/25 08:18 03/14/25 08:18 03/14/25 08:18 03/14/25 08:18 03/14/25 08:18 03/14/25 08:18 03/14/25 08:18 Oxygen Flow Rate (L/min) 2 Oxygen Delivery Method Nasal Cannula Weight: 257 lb Body Mass Index (BMI) 50.1 Intake & Output: Intake and Output for Last 24 Hours 03/12/25 03/13/25 03/14/25 23:59 23:59 23:59 Intake Total 325.33 / 325.33 Balance 325.33 / 325.33 Lab / Micro Data 03/14/25 06:05 03/14/25 06:05 Labs: Laboratory Results - last 24 hr 03/13/25 15:11: WBC 7.7, RBC 4.33, Hgb 11.3 L, Hct 38.7, MCV 89.4, MCH 26.1 L, MCHC 29.2 L, RDW Std Deviation 57.1 H, RDW Coeff of Leif 17.4 H, Plt Count 241, MPV 9.4, Immature Gran % (Auto) 0.600, Neut % (Auto) 79.2 H, Lymph % (Auto) 11.5 L, [place] % (Auto) 7.8, Eos % (Auto) 0.6, Baso % (Auto) 0.3, Absolute Neuts (auto) 6.1, Absolute Lymphs (auto) 0.89, Nucleated RBC % 1.9, Sodium 141, Potassium 6.7 H*, Chloride 114 H, Carbon Dioxide 16.6 L, Anion Gap 11, BUN 88 H, Creatinine 5.10 H, Estim Creat Clear Calc 11.41 L, Est GFR (MDRD) Non-Af 8 L, BUN/Creatinine Ratio 17.3, Glucose 138 H, Calcium 8.5, Phosphorus 5.5 H, Magnesium 2.6 H, Troponin T High Sens 159 H*, [place] > [address] H 03/13/25 17:30: Troponin T Hi Sens 2 Hr 159 H*, Urine Color Yellow, Urine Clarity Cloudy, Urine pH 5.0, Ur Specific [place] 1.025, Urine Protein 100 H, Urine Glucose (UA) Normal, Urine Ketones Negative, Urine Occult Blood 150 H, Urine Nitrite Negative, Urine Bilirubin 1 H, Urine Urobilinogen Normal, Ur Leukocyte Esterase 500 H, Urine RBC 5-10 SEEN, Urine WBC 50-100 SEEN, Ur Squamous Epith Cells 10-25 SEEN, Ur Transition Epith Cell 0-5 SEEN, Urine Bacteria 4+, Urine Mucus 0 SEEN, Urine Osmolality 353, Ur Random Sodium < 20, Urine Potassium 20.8, Urine Chloride 24 03/13/25 18:21: POC Glucose 234 H 03/13/25 18:33: PT 15.7 H, INR 1.2, APTT 29.4, Serum Osmolality 330 H 03/13/25 21:00: Troponin T Hi Sens 4Hr 160 H* 03/14/25 06:05: WBC 7.5, RBC 4.43, Hgb 11.5 L, Hct 40.1, MCV 90.5, MCH 26.0 L, MCHC 28.7 L, RDW Std Deviation 57.9 H, RDW Coeff of Leif 17.4 H, Plt Count 232, MPV 9.6, Immature Gran % (Auto) 0.700, Neut % (Auto) 76.2 H, Lymph % (Auto) 14.0 L, [place] % (Auto) 7.7, Eos % (Auto) 1.1, Baso % (Auto) 0.3, Absolute Neuts (auto) 5.7, Absolute Lymphs (auto) 1.05, Nucleated RBC % 1.7, Sodium 140, Potassium 7.4 H*, Chloride 114 H, Carbon Dioxide 15.1 L, Anion Gap 11, BUN 92 H, Creatinine 5.38 H, Estim Creat Clear Calc 10.71 L, Est GFR (MDRD) Non-Af 8 L, BUN/Creatinine Ratio 17.1, Glucose 79, Calcium 8.9 03/14/25 06:15: POC Glucose 76 Cardiology Labs/Tests 03/13/25 15:11: WBC 7.7, RBC 4.33, Hgb 11.3 L, Hct 38.7, MCV 89.4, MCH 26.1 L, MCHC 29.2 L, Plt Count 241, MPV 9.4, Immature Gran % (Auto) 0.600, Neut % (Auto) 79.2 H, Lymph % (Auto) 11.5 L, [place] % (Auto) 7.8, Eos % (Auto) 0.6, Baso % (Auto) 0.3, Absolute Neuts (auto) 6.1, Nucleated RBC % 1.9, Sodium 141, Potassium 6.7 H*, Chloride 114 H, Carbon Dioxide 16.6 L, Anion Gap 11, BUN 88 H, Creatinine 5.10 H, Est GFR (MDRD) Non-Af 8 L, BUN/Creatinine Ratio 17.3, Glucose 138 H, Calcium 8.5, Phosphorus 5.5 H, Magnesium 2.6 H 03/13/25 17:30: Urine Color Yellow, Urine Clarity Cloudy, Urine pH 5.0, Ur Specific [place] 1.025, Urine Protein 100 H, Urine Glucose (UA) Normal, Urine Ketones Negative, Urine Occult Blood 150 H, Urine Nitrite Negative, Urine Bilirubin 1 H, Urine Urobilinogen Normal, Ur Leukocyte Esterase 500 H, Urine RBC 5-10 SEEN, Urine WBC 50-100 SEEN 03/13/25 18:33: PT 15.7 H, INR 1.2, APTT 29.4, Serum Osmolality 330 H 03/14/25 06:05: WBC 7.5, RBC 4.43, Hgb 11.5 L, Hct 40.1, MCV 90.5, MCH 26.0 L, MCHC 28.7 L, Plt Count 232, MPV 9.6, Immature Gran % (Auto) 0.700, Neut % (Auto) 76.2 H, Lymph % (Auto) 14.0 L, [place] % (Auto) 7.7, Eos % (Auto) 1.1, Baso % (Auto) 0.3, Absolute Neuts (auto) 5.7, Nucleated RBC % 1.7, Sodium 140, Potassium 7.4 H*, Chloride 114 H, Carbon Dioxide 15.1 L, Anion Gap 11, BUN 92 H, Creatinine 5.38 H, Est GFR (MDRD) Non-Af 8 L, BUN/Creatinine Ratio 17.1, Glucose 79, Calcium 8.9 Rhythm: EKG: ECHO: Stress Test: Cardiac Cath: PCI: CT Surgery: Holter monitor: EPS: PPM: CXR: Chest CT Scan: Radiography Diagnostic Testing: Radiology Impression Chest X-Ray 03/13/25 16:45 IMPRESSION: 1. Limited hypoinflated exam. Cardiomegaly with central vascular prominence and at least [id number] RIGHT pleural effusion. 2. RIGHT-sided airspace disease adjacent to the effusion may reflect compressive atelectasis and/or pneumonia. Follow-up to radiographic resolution recommended. 3. Additional description as above. Reading Location: [facility] Physical Exam Const alert, oriented x3 and no apparent distress General Appearance: cooperative HEENT hearing grossly normal bilaterally Head and Scalp: atraumatic Eyes EOMs intact bilaterally Neck General: normal visual inspection Chest inspection of chest normal and palpation of chest normal Resp normal respiratory effort Auscultation: diminished lung sounds Cardio regular rate, regular rhythm, S1 normal heart sound and S2 normal heart sound Jugular Venous Distention: JVD GI normal to inspection, nondistended, normoactive bowel sounds Extremity General Extremity: edema bilateral lower extremity Peripheral Pulses: Yes pulses 2+ throughout Skin no rashes or lesions noted Neuro CN's II-XII intact bilaterally Psych Appearance: grossly normal and appropriate Assessment & Plan Assessment/Plan (1) Congestive heart failure: QUALIFIERS: Heart failure type: systolic Heart failure chronicity: acute on chronic Qualified Code(s): I50.23 - Acute on chronic systolic (congestive) heart failure PLAN: Patient presents with shortness of breath worsening renal function with electrolyte abnormalities including hyperkalemia and ejection fraction noted to be in the 30% range. Recommendation at this time would be to consider renal involvement with a view to possible dialysis to see whether 1 can get some of the fluid off. Medications can then be tailored with beta-ralph at this time. Depending on blood pressures may be able to tolerate hydralazine and isosorbide but no BRETT inhibitors ARB's or Arni's for now. (2) Aortic valve stenosis: QUALIFIERS: Cardiac valve disease etiology: nonrheumatic Qualified Code(s): I35.0 - Nonrheumatic aortic (valve) stenosis PLAN: Patient is noted to have mild aortic stenosis. I do not think that this is contributing necessarily to her clinical condition at this time. (3) Hypertension: QUALIFIERS: Hypertension type: primary hypertension Qualified Code(s): I10 - Essential (primary) hypertension PLAN: Patient has a history of hypertension. Will continue to observe for now until dialysis is taken place. (4) Pulmonary hypertension: PLAN: Patient has at least moderate pulmonary hypertension. There is moderate mitral regurgitation and moderate tricuspid regurgitation likely on the basis of a dilated annulus. Hopefully this will improve with removal of fluid through dialysis preferably. (5) Acute on chronic renal failure: PLAN: Patient appears to have acute on chronic renal insufficiency. Potassium is elevated creatinine is elevated and this will be addressed hopefully with dialysis. EKG today does not demonstrate any evidence of peaked T waves. Patient still is in sinus rhythm.
[2025-03-14] MEDS: Furosemide 100 MG/10 ML Vial 60 MG IV (08:54)
[2025-03-14 09:03] LABS: Urea Nitrogen, Urine 374 mg/dL (NO RANGE EST.)
[2025-03-14] MEDS: Nystatin Powder 15gm Bottle 1 APPLIC TOPICAL ×2 (09:03→20:48)
--- NOTE | 2025-03-14 10:03 | EKG12_ITS ---
Test Reason : Blood Pressure : */* mmHG Vent. Rate : 71 BPM Atrial Rate : 55 BPM P-R Int : * ms QRS Dur : 108 ms QT Int : 390 ms P-R-T Axes : * 25 130 degrees QTcB Int : 423 ms Normal sinus rhythm Low voltage QRS Incomplete left bundle branch block T wave abnormality, consider lateral ischemia Abnormal ECG No previous ECGs available Confirmed by WANDA SANTIAGO, COY ([id number]), visual effects editor MIRNA DRAKE ([id number]) on 03/14/2025 1:21:50 PM Referred By: WILDA Confirmed By: COY MUÑOZ MD
--- NOTE | 2025-03-14 10:50 | CASEMGMT ---
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 RN ANIYAH introduced self and role at [facility], pt voices understanding. Pt is alert and is resting bed. Pt w/slight confusion, able to recall most things, but difficult w/other things. She gave correct address, but then when inquired about insurance, she stated, It's not available and started saying what her phone # was. Then pt able to correctly state her insurance when asked later. Care providers, pharmacy, and demographics verified. Unable to verify phone #'s at this time, as pt not able to recall them. Strata: 3 PCP: Dr Donal Castle Specialists: Dr Ramirez, [facility]/cardiology Preferred Pharmacy: [facility] retail Insurance: [employer] [facility] Prescription Benefit: Yes LNOK: Kd Pool (H), Faustino Pool (Son), Yemi (Son) Living Arrangements: Pt lives with her in a one-story home with basement, with 4 steps to enter. Pt states she does not have to go to the basement. Pt reports being indep w/ADL's and states she and her share home mgnt tasks. Transportation: Self, DME: Pt has a cane, W/C, and FWW. Pt has a walk-in shower and shower chair. Pt is currently requiring additional oxygen and may qualify for home oxygen use. A verbal list of local in-network DME companies were provided to the pt at this time. Pt prefers [employer]. HHC/SNF: Denies HH or SNF Hx. Pt has been to [facility] for OP Tx. Pt prefers to discharge home w/ when medically ready and states may be interested in HHC. However, she has not been OOB yet and pt to work w/therapy. CM or SW to f/u with pt once evals completed and recommendations received to plan for a safe discharge. While SHON DILL talking w/pt, Dr Garnica came in to talk with pt. Per Dr Garnica, pt may need HD. Dr Garnica was made aware that this RN ANIYAH noted that pt is still slightly confused. Plan: TBD pending course of treatment and progress w/therapy. Follow for possible HD, O2, and HHC. Liliam THOMASN SHON DILL
--- NOTE | 2025-03-14 11:12 | US_ITS ---
PROCEDURE: KIDNEY AND BLADDER 03/14/2025 REASON FOR EXAM: JOSUE TECHNIQUE: Bilateral renal ultrasound. FINDINGS: Kidneys: Normal renal sizes, parenchymal thicknesses, and echotextures. [place]: None Cysts or Masses: None Other: RIGHT Kidney Size: 10.3 x 5.3 x 5.7 Volume: mL Parenchymal Thickness: (>14mm is normal) Cortical Thickness (if discernible): 10 mm (>6mm is normal) LEFT Kidney Size: 10.0 x 5.6 x 5.5 Volume: mL Parenchymal Thickness: (>14mm is normal) Cortical Thickness (if discernible): 9 mm (>6mm is normal) US/Kidney and Bladder IMPRESSION: No hydronephrosis to suggest obstruction. Reading Location: [id number]
--- NOTE | 2025-03-14 11:15 | PCM.PN.BLA ---
Progress Note Came in as a routine consult this am for JOSUE. I was notified by Blaine mendez today around 9 am about K being high. Called and spoke to Dr Cottrell, covering hospitalist. baseline cr 1.7. now more than 5. no reason to suspect urinary retention as per Dr Cottrell. renal US ordered K is 7.4 and bicarbonate 15 insulin dextrose sodium bicarbonate kayexalate have all been ordered repeat K this afternoon. will review
--- NOTE | 2025-03-14 11:28 | PN.HOSP_ITS ---
Reason for Visit Reason for Visit: Diagnoses Essential (primary) hypertension (03/13/25) Pulmonary hypertension, unspecified (03/13/25) Nonrheumatic aortic (valve) stenosis (03/13/25) Acute on chronic systolic (congestive) heart failure (03/13/25) Acute kidney failure, unspecified (03/13/25) Chronic kidney disease, unspecified (03/13/25) Subjective Subjective Saw patient at bedside this morning. Patient was mildly fatigued appearing but otherwise sitting back comfortably in bed and in no acute distress. She was alert and oriented to person and place but not time and had some confusion when answering multiple questions. She denied any acute pain or discomfort currently. Denied any nausea. Denied any shortness of breath. No other new concerns morning. Objective Data Objective Data Vital Signs: Vital Signs Temp Pulse Resp BP Pulse Ox O2 Del Method O2 Flow Rate 97.4 F L 62 16 126/52 H 94 Nasal Cannula 2 03/14/25 08:18 03/14/25 08:18 03/14/25 08:18 03/14/25 08:18 03/14/25 08:18 03/14/25 09:08 03/14/25 08:18 Oxygen Flow Rate (L/min) 2 Oxygen Delivery Method Nasal Cannula Weight: 116.573 kg Body Mass Index (BMI) 50.1 Intake & Output: Intake and Output for Last 24 Hours 03/12/25 03/13/25 03/14/25 23:59 23:59 23:59 Intake Total 325.33 / 325.33 250 / 250 Balance 325.33 / 325.33 250 / 250 Lab / Micro Data 03/14/25 06:05 03/14/25 12:18 Labs: Laboratory Results - last 24 hr 03/13/25 15:11: WBC 7.7, RBC 4.33, Hgb 11.3 L, Hct 38.7, MCV 89.4, MCH 26.1 L, M CHC 29.2 L, RDW Std Deviation 57.1 H, RDW Coeff of Leif 17.4 H, Plt Count 241, MPV 9.4, Immature Gran % (Auto) 0.600, Neut % (Auto) 79.2 H, Lymph % (Auto) 11.5 L, [place] % (Auto) 7.8, Eos % (Auto) 0.6, Baso % (Auto) 0.3, Absolute Neuts (auto) 6.1, Absolute Lymphs (auto) 0.89, Nucleated RBC % 1.9, Sodium 141, Potassium 6.7 H*, Chloride 114 H, Carbon Dioxide 16.6 L, Anion Gap 11, BUN 88 H, Creatinine 5.10 H, Estim Creat Clear Calc 11.41 L, Est GFR (MDRD) Non-Af 8 L, BUN/Creatinine Ratio 17.3, Glucose 138 H, Calcium 8.5, Phosphorus 5.5 H, M agnesium 2.6 H, Troponin T High Sens 159 H*, [place] II > 04641 H 03/13/25 17:30: Troponin T Hi Sens 2 Hr 159 H*, Urine Color Yellow, Urine Clarity Cloudy, Urine pH 5.0, Ur Specific [place] 1.025, Urine Protein 100 H, Urine Glucose (UA) Normal, Urine Ketones Negative, Urine Occult Blood 150 H, Urine Nitrite Negative, Urine Bilirubin 1 H, Urine Urobilinogen Normal, Ur Leukocyte Esterase 500 H, Urine RBC 5-10 SEEN, Urine WBC 50-100 SEEN, Ur Squamous Epith Cells 10-25 SEEN, Ur Transition Epith Cell 0-5 SEEN, Urine Bacteria 4+, Urine Mucus 0 SEEN, Urine Osmolality 353, Ur Random Sodium < 20, Urine Potassium 20.8, Urine Chloride 24, Urine Urea Nitrogen 374 03/13/25 18:21: POC Glucose 234 H 03/13/25 18:33: PT 15.7 H, INR 1.2, APTT 29.4, Serum Osmolality 330 H 03/13/25 21:00: Troponin T Hi Sens 4Hr 160 H* 03/14/25 06:05: WBC 7.5, RBC 4.43, Hgb 11.5 L, Hct 40.1, MCV 90.5, MCH 26.0 L, M CHC 28.7 L, RDW Std Deviation 57.9 H, RDW Coeff of Leif 17.4 H, Plt Count 232, MPV 9.6, Immature Gran % (Auto) 0.700, Neut % (Auto) 76.2 H, Lymph % (Auto) 14.0 L, [place] % (Auto) 7.7, Eos % (Auto) 1.1, Baso % (Auto) 0.3, Absolute Neuts (auto) 5.7, Absolute Lymphs (auto) 1.05, Nucleated RBC % 1.7, Sodium 140, Potassium 7.4 H*, Chloride 114 H, Carbon Dioxide 15.1 L, Anion Gap 11, BUN 92 H, Creatinine 5.38 H, Estim Creat Clear Calc 10.71 L, Est GFR (MDRD) Non-Af 8 L, BUN/Creatinine Ratio 17.1, Glucose 79, Calcium 8.9 03/14/25 06:15: POC Glucose 76 Radiography Diagnostic Testing: Radiology Impression Chest X-Ray 03/13/25 16:45 IMPRESSION: 1. Limited hypoinflated exam. Cardiomegaly with central vascular prominence and at least [id number] RIGHT pleural effusion. 2. RIGHT-sided airspace disease adjacent to the effusion may reflect compressive atelectasis and/or pneumonia. Follow-up to radiographic resolution recommended. 3. Additional description as above. Reading Location: [facility] Physical Exam Const alert and no apparent distress Constitutional Narrative: Elderly female, class III obesity, mildly fatigued appearing, alert and oriented to person and place but not time and some confusion with answering questions, otherwise sitting back comfortably in bed and in no acute distress. General Appearance: cooperative and comfortable HEENT normocephalic, head/scalp atraumatic, hearing grossly normal bilaterally, nasal mucous membranes and turbinates normal and moist oral mucous membranes Eyes PERRL, EOMs intact bilaterally and conjunctivae normal Neck full ROM Chest inspection of chest normal Resp normal respiratory effort and no use of accessory muscles Resp Narrative: Breathing comfortably on 2 L nasal cannula at rest. Decreased breath sounds in bilateral lung bases with mild crackles noted, no wheezing noted. Cardio regular rate, regular rhythm, no murmurs and peripheral pulses 2+ throughout GI normal to inspection, nondistended, normoactive bowel sounds, soft to palpation, non-tender and non-distended Back/Spine normal ROM Extremity Extremity Narrative: +2-3 lower extremity pitting edema noted. Skin no rashes or lesions noted Neuro moves all extremities and no focal motor deficits Assessment & Plan Assessment/Plan (1) Acute on chronic renal failure: (2) Hyperkalemia: PLAN: Plan Patient is a 74-year-old female who presented to [facility] ED on 03/13/2025 with fatigue and abnormal labs. 1. Severe JOSUE on CKD stage IIIb with hyperkalemia and metabolic acidosis ? Nephrology following. Creatinine 5.10, BUN 88, potassium 6.7 on admit. Baseline creatinine 1.6-1.7. Potassium worsened to 7.4 on morning of 03/14; no EKG changes noted and treated with calcium/insulin/dextrose/Kayexalate/sodium bicarbonate push with repeat potassium 6.3. Unclear etiology for JOSUE at this time. Postvoid bladder scan was negative but renal ultrasound pending. Appears volume overloaded on exam but urine sodium low. Per nephrology, will treat with IV Lasix plus or minus bicarbonate as needed for now and monitor closely. Patient notably is making urine. Monitor BMP daily. No acute hemodialysis needs today but if not much improvement by tomorrow, suspected that she will need to be initiated on dialysis. 2. Acute on chronic HFrEF with hypoxia, hypertension, hyperlipidemia ? Cardiology following. Initially diagnosed with HFrEF with EF 40 to 45% in October. Was started on Coreg and lisinopril then but unfortunately repeat echo on 12/12 showed EF of 30% with moderate to severe global LV hypokinesis. Saw cardiology in the office on 03/12 and noted to have 17 pound weight gain. Labs drawn on 03/12 with findings as above as well as BNP greater than 70,000. Currently giving IV Lasix as needed per nephrology recommendation. Appreciate cardiology and nephrology recommendations going forward. Okay to continue home aspirin, statin and Coreg. 3. Acute on chronic debility ? PT/OT/case management consulted. 4. Concern for UTI ? UA with 500 leukocyte esterase, negative nitrates, 4+ bacteria, 50-100 WBCs. Urine culture pending. Treat empirically with IV ceftriaxone for now, follow-up urine culture. 5. Elevated troponin ? Cardiology following as above. Troponin trend 159 > 159 > 160 on admit. No new ischemic EKG changes noted. No chest pain noted. Suspected demand ischemia secondary to HFrEF and JOSUE as noted above, no further cardiac workup needed. Chronic medical conditions: ? Class III obesity: BMI 50 on admit. Complicates hospital course, care and prognosis. ? Type 2 diabetes mellitus: Hold home metformin and dapagliflozin. Treating with sliding scale insulin with meals for now, adjust as needed. ? Hypothyroidism: Continue home Synthroid. DVT prophylaxis: Heparin subcu CODE STATUS: Full code, verified Expected disposition: TBD Total clinical time spent by myself addressing the patient's medical issues, reviewing all the data, and collaborating with patient's care team: 50 minutes. Charges/Coding Visit Charges Inpatient E&M: 36789 Subs Hosp L3
[2025-03-14 11:56] LABS: Bedside Glucose 69 mg/dL (74-106)
[2025-03-14 12:58] LABS: Bedside Glucose 76 mg/dL (74-106)
[2025-03-14 13:37] LABS: CPK Total, Creatine Kinase 26 U/L (24-195)
[2025-03-14] MEDS: 0.9% Saline Lock 10 ML Syringe IV (13:59)
--- NOTE | 2025-03-14 14:09 | PCM.CONS.R ---
Assessment & Plan Assessment/Plan (1) Acute kidney injury superimposed on chronic kidney disease: PLAN: CKD stage IIIb at baseline, 1.7 last creatinine from December. Came with a creatinine of 4.7 or so, worse now. She says she is making urine. Discussed with nursing staff. She has voided once when she was having bowel movement earlier today. Postvoid bladder scan was negative will order a renal ultrasound Renal ultrasound with leukocytes, RBC, protein. Cultures pending Urine sodium less than 20 History of congestive heart failure. Chest x-ray is okay. Has moderate lower extremity edema which according to her is better than before. BNP significantly high. Breathing looks comfortable right now Hyperkalemia. Potassium level 7.4 this morning. Discussed with hospitalist. No EKG changes. She has received insulin, dextrose, bicarbonate, Kayexalate. She did have a large bowel movement after Kayexalate. Repeat BMP ordered no. Labs pending, will follow She is agreeable with dialysis if the potassium does not improve Multiple discussions with hospitalist HPI Consult Data Date of Consult: 03/14/25 HPI Narrative Reason for Consultation: Acute renal failure HPI Narrative: MISAEL MEDINA, is a 74 F who presents to the hospital with abnormal labs. Nephrology on consultation in view of acute renal failure. On review of previous lab data, it seems she has CKD stage IIIb with baseline creatinine around 1.7. History of congestive heart failure, had routine follow-up appointment with cardiology. Labs was drawn and this showed elevated creatinine, elevated potassium and she was referred to the ER. Reviewed medication list, no known medications such as potassium supplements. She is a poor historian. Does not exactly know all the medications that she is taking right now. Does not think there is any new medications. Denies taking NSAIDs, [id number] supplements. When I asked her about recent medical events, all she says is I had pneumonia in September. Does not think she started any new medications within the last 2 months which is when the last set of labs are from. She says she was making urine, denies any hematuria, flank pain, fever, chills. Appetite has been fair. Has some lower extremity edema but she says this is better than before. She does take diuretics at home. [facility] Medical History Congestive heart failure Hypothyroidism Osteoporosis Morbid obesity with BMI of 45.0-49.9, adult Wears glasses Post-menopausal Thyroid disease Diabetes Uses wheelchair Ambulates with cane Arthritis High cholesterol Back pain TIA (transient ischemic attack) Dietary restriction Non-smoker History of pain when walking History of transesophageal echocardiography (DESTIN) Cardiology follow-up encounter Hypertension Hypertension Diabetes Home Medications ?Medication ?Instructions ?Recorded ?Last Taken ?Type atorvastatin 10 mg tablet 10 mg PO QHS cholesterol 08/31/22 03/12/25 History levothyroxine 100 mcg tablet 100 mcg PO DAILY thyroid 08/31/22 03/13/25 History (Synthroid) aspirin 81 mg chewable tablet 81 mg PO DAILYCM 90 days #90 tabs 10/21/24 03/13/25 Rx carvedilol 6.25 mg tablet (Coreg) 6.25 mg PO BID #60 tabs 12/01/24 03/13/25 Rx dapagliflozin propanediol 10 mg 10 mg PO QDAY #30 tabs 03/12/25 Unknown Rx tablet (Farxiga) furosemide 40 mg tablet 40 mg PO QAM #30 tabs 03/12/25 03/13/25 Rx metformin 500 mg tablet 500 mg PO BID 03/12/25 03/13/25 History Allergy/AdvReac Type Severity Reaction Status Date / Time No Known Allergies Allergy Verified 03/13/25 13:58 Family History Mother Hypertension Father Heart disease Surgical History Hx of colonoscopy Hx of cholecystectomy H/O: hysterectomy Social History household members: spouse Smoking Status: Never smoker alcohol intake: never substance use type: does not use caffeine: No ROS ROS Narrative Negative except history Physical Exam Narrative Alert awake oriented x 3 no obvious distress no pallor no icterus no JVD s1s2 no murmurs lungs clear abdomen soft no organomegaly no edema no cyanosis Lab / Micro Data 03/14/25 06:05 03/14/25 06:05 Labs: Laboratory Results - last 24 hr 03/13/25 15:11: WBC 7.7, RBC 4.33, Hgb 11.3 L, Hct 38.7, MCV 89.4, MCH 26.1 L, MCHC 29.2 L, RDW Std Deviation 57.1 H, RDW Coeff of Leif 17.4 H, Plt Count 241, MPV 9.4, Immature Gran % (Auto) 0.600, Neut % (Auto) 79.2 H, Lymph % (Auto) 11.5 L, [place] % (Auto) 7.8, Eos % (Auto) 0.6, Baso % (Auto) 0.3, Absolute Neuts (auto) 6.1, Absolute Lymphs (auto) 0.89, Nucleated RBC % 1.9, Sodium 141, Potassium 6.7 H*, Chloride 114 H, Carbon Dioxide 16.6 L, Anion Gap 11, BUN 88 H, Creatinine 5.10 H, Estim Creat Clear Calc 11.41 L, Est GFR (MDRD) Non-Af 8 L, BUN/Creatinine Ratio 17.3, Glucose 138 H, Calcium 8.5, Phosphorus 5.5 H, Magnesium 2.6 H, Troponin T High Sens 159 H*, [place] II > [address] H 03/13/25 17:30: Troponin T Hi Sens 2 Hr 159 H*, Urine Color Yellow, Urine Clarity Cloudy, Urine pH 5.0, Ur Specific Needles 1.025, Urine Protein 100 H, Urine Glucose (UA) Normal, Urine Ketones Negative, Urine Occult Blood 150 H, Urine Nitrite Negative, Urine Bilirubin 1 H, Urine Urobilinogen Normal, Ur Leukocyte Esterase 500 H, Urine RBC 5-10 SEEN, Urine WBC 50-100 SEEN, Ur Squamous Epith Cells 10-25 SEEN, Ur Transition Epith Cell 0-5 SEEN, Urine Bacteria 4+, Urine Mucus 0 SEEN, Urine Osmolality 353, Ur Random Sodium < 20, Urine Potassium 20.8, Urine Chloride 24, Urine Urea Nitrogen 374 03/13/25 18:21: POC Glucose 234 H 03/13/25 18:33: PT 15.7 H, INR 1.2, APTT 29.4, Serum Osmolality 330 H 03/13/25 21:00: Troponin T Hi Sens 4Hr 160 H* 03/14/25 06:05: WBC 7.5, RBC 4.43, Hgb 11.5 L, Hct 40.1, MCV 90.5, MCH 26.0 L, MCHC 28.7 L, RDW Std Deviation 57.9 H, RDW Coeff of Leif 17.4 H, Plt Count 232, MPV 9.6, Immature Gran % (Auto) 0.700, Neut % (Auto) 76.2 H, Lymph % (Auto) 14.0 L, [place] % (Auto) 7.7, Eos % (Auto) 1.1, Baso % (Auto) 0.3, Absolute Neuts (auto) 5.7, Absolute Lymphs (auto) 1.05, Nucleated RBC % 1.7, Sodium 140, Potassium 7.4 H*, Chloride 114 H, Carbon Dioxide 15.1 L, Anion Gap 11, BUN 92 H, Creatinine 5.38 H, Estim Creat Clear Calc 10.71 L, Est GFR (MDRD) Non-Af 8 L, BUN/Creatinine Ratio 17.1, Glucose 79, Calcium 8.9 03/14/25 06:15: POC Glucose 76 03/14/25 11:38: POC Glucose 69 L 03/14/25 12:18: Total Creatine Kinase 26 03/14/25 12:41: POC Glucose 76 Imaging Radiology Impression Chest X-Ray 03/13/25 16:45 IMPRESSION: 1. Limited hypoinflated exam. Cardiomegaly with central vascular prominence and at least [id number] RIGHT pleural effusion. 2. RIGHT-sided airspace disease adjacent to the effusion may reflect compressive atelectasis and/or pneumonia. Follow-up to radiographic resolution recommended. 3. Additional description as above. Reading Location: [id number]
[2025-03-14 14:15] LABS: BUN 95 mg/dL (4-19); BUN/Creat Ratio 17.7 RATIO (10-20); Calcium,Total 8.7 mg/dL (7.6-11.0); Chloride 114 mmol/L (98-108); Creatinine, Serum 5.34 mg/dL (0.70-1.20); EST Glomerular Filtration Rate 8 (>60); Estimated Creatinine Clearance 10.79 ml/min (50-250); Glucose 71 mg/dL (70-99); Sodium Level 143 mmol/L (133-145)
[2025-03-14 14:57] LABS: Anion Gap UNABLE TO CALCULATE (5-15); Potassium 6.3 mmol/L (3.3-5.1)
[2025-03-14 15:40] VITALS: BP 99/50; PULSE 75; RESP 16; TEMP 36.4; O2SAT 96
[2025-03-14 16:07] LABS: Bedside Glucose 137 mg/dL (74-106)
[2025-03-14 20:45] VITALS: BP 145/59; PULSE 71; RESP 20; TEMP 36.2; O2SAT 98
[2025-03-14] MEDS: Atorvastatin Calcium 10 MG Tablet PO (20:46)
[2025-03-14] MEDS: Ceftriaxone 1 GM/50 ML BAG IV (20:49)
[2025-03-14 21:26] LABS: Bedside Glucose 119 mg/dL (74-106)
[2025-03-15 03:00] VITALS: BP 124/95; PULSE 76; RESP 20; TEMP 36.1; O2SAT 96
[2025-03-15 05:05] VITALS: BMI 51.4
[2025-03-15] MEDS: Levothyroxine 100 MCG Tablet PO (05:26)
[2025-03-15] MEDS: Heparin Injection (Vial) 5,000 UNIT/ML VIAL 5000 UNIT SC ×2 (05:26→21:37)
[2025-03-15 06:46] LABS: Bedside Glucose 99 mg/dL (74-106)
[2025-03-15 07:30] LABS: Anion Gap 12 (5-15); BUN 93 mg/dL (4-19); BUN/Creat Ratio 16.1 RATIO (10-20); Calcium,Total 8.5 mg/dL (7.6-11.0); Carbon Dioxide 14.7 mmol/L (21.0-32.0); Chloride 111 mmol/L (98-108); Creatinine, Serum 5.79 mg/dL (0.70-1.20); EST Glomerular Filtration Rate 7 (>60); Glucose 106 mg/dL (70-99); Potassium 6.2 mmol/L (3.3-5.1); Sodium Level 138 mmol/L (133-145)
[2025-03-15 08:50] VITALS: BP 119/57; PULSE 72; RESP 20; TEMP 36.1; O2SAT 96
[2025-03-15] MEDS: Aspirin 81 MG TAB.CHEW PO (08:51)
[2025-03-15] MEDS: Sodium Bicarbonate 8.4% 50 ML Syringe 50 MEQ IV (08:52)
[2025-03-15] MEDS: Nystatin Powder 15gm Bottle 1 APPLIC TOPICAL ×2 (08:52→21:34)
[2025-03-15] MEDS: 0.9% Saline Lock 10 ML Syringe IV ×4 (08:52→21:40)
[2025-03-15] MEDS: Carvedilol 6.25 MG Tablet PO ×2 (08:52→16:42)
[2025-03-15] MEDS: Sodium Polystyrene Sulfonate 15 GM/60 ML UDC PO (09:51)
[2025-03-15] MEDS: Sodium Bicarbonate 8.4% 50 ML Syringe 100 MEQ IV (09:51)
--- NOTE | 2025-03-15 10:24 | PCM.PN.HOSP ---
Reason for Visit Reason for Visit: Diagnoses Hyperkalemia (03/13/25) Essential (primary) hypertension (03/13/25) Pulmonary hypertension, unspecified (03/13/25) Nonrheumatic aortic (valve) stenosis (03/13/25) Acute on chronic systolic (congestive) heart failure (03/13/25) Acute kidney failure, unspecified (03/13/25) Chronic kidney disease, unspecified (03/13/25) Subjective Subjective Saw patient at bedside this morning. Patient was sitting back comfortably in bedside chair and in no acute distress. She remained fatigued appearing and was answering most questions with short appropriate responses but did have some confusion with questions as well, similar to yesterday. She denied any acute pain or discomfort. She did state that she generally feels fatigued and off but would not elaborate on that further. She was agreeable to having dialysis catheter placed tomorrow. No other new concerns today. Objective Data Objective Data Vital Signs: Vital Signs Temp Pulse Resp BP Pulse Ox O2 Del Method O2 Flow Rate 97.0 F L 72 20 H 119/57 L 96 Nasal Cannula 2 03/15/25 08:50 03/15/25 08:50 03/15/25 08:50 03/15/25 08:50 03/15/25 08:50 03/15/25 08:50 03/15/25 08:50 Oxygen Flow Rate (L/min) 2 Oxygen Delivery Method Nasal Cannula Weight: 119.4 kg Body Mass Index (BMI) 51.4 Intake & Output: Intake and Output for Last 24 Hours 03/13/25 03/14/25 03/15/25 23:59 23:59 23:59 Intake Total 325.33 / 325.33 300 / 300 Output Total 150 / 150 50 / 50 Balance 325.33 / 325.33 150 / 150 -50 / -50 Lab / Micro Data 03/14/25 06:05 03/15/25 06:15 Labs: Laboratory Results - last 24 hr 03/14/25 11:38: POC Glucose 69 L 03/14/25 12:18: Sodium 143, Potassium 6.3 H*, Chloride 114 H, Carbon Dioxide TNP, Anion Gap UNABLE TO CALCULATE L, BUN 95 H, Creatinine 5.34 H, Estim Creat Clear Calc 10.79 L, Est GFR (MDRD) Non-Af 8 L, BUN/Creatinine Ratio 17.7, Glucose 71, Calcium 8.7, Total Creatine Kinase 26 03/14/25 12:41: POC Glucose 76 03/14/25 15:39: POC Glucose 137 H 03/14/25 18:00: Urine Creatinine 230.00 H 03/14/25 20:40: POC Glucose 119 H 03/15/25 06:15: Sodium 138, Potassium 6.2 H*, Chloride 111 H, Carbon Dioxide 14.7 L, Anion Gap 12, BUN 93 H, Creatinine 5.79 H, Estim Creat Clear Calc 10.10 L, Est GFR (MDRD) Non-Af 7 L, BUN/Creatinine Ratio 16.1, Glucose 106 H, Calcium 8.5 03/15/25 06:27: POC Glucose 99 Radiography Diagnostic Testing: Radiology Impression Renal Ultrasound 03/14/25 11:12 IMPRESSION: No hydronephrosis to suggest obstruction. Reading Location: [facility] Physical Exam Const alert and no apparent distress Constitutional Narrative: Elderly female, class III obesity, mildly fatigued appearing, alert and oriented to person and place but not time and some confusion with answering questions, otherwise sitting back comfortably in bed and in no acute distress. Stable. General Appearance: cooperative and comfortable HEENT normocephalic, head/scalp atraumatic, hearing grossly normal bilaterally, nasal mucous membranes and turbinates normal and moist oral mucous membranes Eyes PERRL, EOMs intact bilaterally and conjunctivae normal Neck full ROM Chest inspection of chest normal Resp normal respiratory effort and no use of accessory muscles Resp Narrative: Breathing comfortably on 2 L nasal cannula at rest. Decreased breath sounds in bilateral lung bases with mild crackles noted, no wheezing noted. Cardio regular rate, regular rhythm, no murmurs and peripheral pulses 2+ throughout GI normal to inspection, nondistended, normoactive bowel sounds, soft to palpation, non-tender and non-distended Back/Spine normal ROM Extremity Extremity Narrative: +2-3 lower extremity pitting edema noted. Stable. Skin no rashes or lesions noted Neuro moves all extremities and no focal motor deficits Assessment & Plan Assessment/Plan (1) Acute on chronic renal failure: (2) Hyperkalemia: PLAN: Plan Patient is a 74-year-old female who presented to [facility] ED on 03/13/2025 with fatigue and abnormal labs. 1. Severe JOSUE on CKD stage IIIb with hyperkalemia and metabolic acidosis ? Nephrology following. Creatinine 5.10, BUN 88, potassium 6.7 on admit. Baseline creatinine 1.6-1.7. Potassium worsened to 7.4 on morning of 03/14; no EKG changes noted and treated with calcium/insulin/dextrose/Kayexalate/sodium bicarbonate push with repeat potassium 6.3. Unclear etiology for JOSUE at this time. Renal ultrasound benign. Appears volume overloaded on exam but urine sodium low. Given 1 dose of IV Lasix with very minimal urine output. Repeat BMP on 03/15 with worsening creatinine, potassium stable at 6.2. Surgery consulted for tunneled HD catheter placement tomorrow. Will continue to temporize potassium as needed and plan to initiate dialysis tomorrow after catheter placement. 2. Acute on chronic HFrEF with hypoxia, hypertension, hyperlipidemia ? Cardiology following. Initially diagnosed with HFrEF with EF 40 to 45% in October. Was started on Coreg and lisinopril then but unfortunately repeat echo on 12/12 showed EF of 30% with moderate to severe global LV hypokinesis. Saw cardiology in the office on 03/12 and noted to have 17 pound weight gain. Labs drawn on 03/12 with findings as above as well as BNP greater than 70,000. Planning to initiate dialysis tomorrow as noted above. Appreciate cardiology and nephrology recommendations going forward. Okay to continue home aspirin, statin and Coreg. 3. Acute on chronic debility ? PT/OT/case management following. Patient with fairly poor therapy scores, will likely need SNF placement on discharge. 4. Concern for UTI ? UA with 500 leukocyte esterase, negative nitrates, 4+ bacteria, 50-100 WBCs. Urine culture pending. Treat empirically with IV ceftriaxone for now, follow-up urine culture. 5. Elevated troponin ? Cardiology following as above. Troponin trend 159 > 159 > 160 on admit. No new ischemic EKG changes noted. No chest pain noted. Suspected demand ischemia secondary to HFrEF and JOSUE as noted above, no further cardiac workup needed. Chronic medical conditions: ? Class III obesity: BMI 50 on admit. Complicates hospital course, care and prognosis. ? Type 2 diabetes mellitus: Hold home metformin and dapagliflozin. Treating with sliding scale insulin with meals for now, adjust as needed. ? Hypothyroidism: Continue home Synthroid. DVT prophylaxis: Heparin subcu CODE STATUS: Full code, verified Expected disposition: Likely SNF, TBD Total clinical time spent by myself addressing the patient's medical issues, reviewing all the data, and collaborating with patient's care team: 35 minutes. Charges/Coding Visit Charges Inpatient E&M: 68752 Subs Hosp L2
[2025-03-15 10:43] LABS: International Normalized Ratio 1.2; Prothrombin Time (Protime)PT. 15.5 SECONDS (11.7-14.9)
--- NOTE | 2025-03-15 10:46 | PN.RENAL_ITS ---
Subjective Subjective Patient is sitting in chair. Denies any complaints. Denies any shortness of breath. Objective Data Objective Data Vital Signs: Vital Signs Temp Pulse Resp BP Pulse Ox O2 Del Method O2 Flow Rate 97.0 F L 72 20 H 119/57 L 96 Nasal Cannula 2 03/15/25 08:50 03/15/25 08:50 03/15/25 08:50 03/15/25 08:50 03/15/25 08:50 03/15/25 08:50 03/15/25 08:50 Oxygen Flow Rate (L/min) 2 Oxygen Delivery Method Nasal Cannula Weight: 119.4 kg Body Mass Index (BMI) 51.4 Intake & Output: Intake and Output for Last 24 Hours 03/13/25 03/14/25 03/15/25 23:59 23:59 23:59 Intake Total 325.33 / 325.33 300 / 300 Output Total 150 / 150 50 / 50 Balance 325.33 / 325.33 150 / 150 -50 / -50 Lab / Micro Data 03/14/25 06:05 03/15/25 06:15 Labs: Laboratory Results - last 24 hr 03/14/25 11:38: POC Glucose 69 L 03/14/25 12:18: Sodium 143, Potassium 6.3 H*, Chloride 114 H, Carbon Dioxide TNP, Anion Gap UNABLE TO CALCULATE L, BUN 95 H, Creatinine 5.34 H, Estim Creat Clear Calc 10.79 L, Est GFR (MDRD) Non-Af 8 L, BUN/Creatinine Ratio 17.7, Glucose 71, Calcium 8.7, Total Creatine Kinase 26 03/14/25 12:41: POC Glucose 76 03/14/25 15:39: POC Glucose 137 H 03/14/25 18:00: Urine Creatinine 230.00 H 03/14/25 20:40: POC Glucose 119 H 03/15/25 06:15: Sodium 138, Potassium 6.2 H*, Chloride 111 H, Carbon Dioxide 14.7 L, Anion Gap 12, BUN 93 H, Creatinine 5.79 H, Estim Creat Clear Calc 10.10 L, Est GFR (MDRD) Non-Af 7 L, BUN/Creatinine Ratio 16.1, Glucose 106 H, Calcium 8.5 03/15/25 06:27: POC Glucose 99 03/15/25 10:05: PT 15.5 H, INR 1.2, APTT 28.0 Radiography Diagnostic Testing: Radiology Impression Renal Ultrasound 03/14/25 11:12 IMPRESSION: No hydronephrosis to suggest obstruction. Reading Location: [id number] Physical Exam Narrative Alert awake oriented x 3 no obvious distress s1s2 no murmurs lungs clear abdomen soft n Trace edema bilateral legs Underwood with trace yellow urine in tubing Assessment & Plan Assessment/Plan (1) Acute kidney injury superimposed on chronic kidney disease: PLAN: CKD stage IIIb at baseline, 1.7 last creatinine from December. - JOSUE superimposed on CKD; Creatinine 4.48 on 03/12--> today creatinine up to 5.79. Patient has Underwood, urine output only 50 mL charted for today. Renal ultrasound no hydronephrosis. Urine sodium less than 20. Cause of JOSUE unclear, renal serologies ordered and pending. Patient may need kidney biopsy. 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 Risks and benefits of hemodialysis discussed and reviewed with patient. Questions answered. Patient is in agreement with hemodialysis. Surgery team consulted for tunneled hemodialysis catheter. Depending upon timing of catheter placement we will then arrange for hemodialysis on 2K bath. No fluid removal with first HD treatment. Dialysis orders placed. Consult psych social worker for arrangements for outpatient hemodialysis, diagnosis JOSUE. Hep B ordered for tomorrow. Continue holding metformin and furosemide. History of congestive heart failure. Chest x-ray is okay. Has moderate lower extremity edema which according to her is better than before. BNP significantly high. Breathing looks comfortable right now, she is on O2 nasal cannula Hyperkalemia. Potassium level peak 7.4 --> improved to 6.2. Receiving Kayexalate again today and bicarb. When eating keep on low potassium diet restrictions. Assessment and plan reviewed with Dr. Gupta.
[2025-03-15 10:50] VITALS: O2SAT 93
--- NOTE | 2025-03-15 10:56 | EX.PCM.CON.S ---
Assessment & Plan Assessment/Plan (1) Acute on chronic renal failure: PLAN: Patient is 74-year-old female admitted with acute on chronic renal failure. Unfortunately her renal function has not improved with conservative measures and she exhibits hyperkalemia and volume overload so renal replacement therapy is planned by nephrology. I was asked to consider catheter placement for patient this afternoon for initiation of dialysis to follow immediately. Unfortunately given the combination of patient's dietary status/or availability/prior commitments this is not feasible. Therefore, I have secured the next availability with the OR at 11:00 tomorrow morning. I have discussed plans with patient as well as with primary hospitalist service. Patient denies any further questions. She is to be consented for right possible left tunneled hemodialysis catheter insertion. She is to be kept n.p.o. past midnight in anticipation of this procedure. Joao Francois MD General Surgery Endocrine Surgery Pager: [facility] [address] [place] [address], [address] [place] [id number] Office: [phone] HPI Consult Data Date of Consult: 03/15/25 HPI Narrative Reason for Consultation: Consideration of tunneled hemodialysis catheter insertion HPI Narrative: MISAEL MEDINA, is a 74 F who presented to [facility] on direction from cardiology after an outpatient visit with them 03/12/2025. Although patient presented for routine outpatient visit and felt that she was at her baseline her laboratory studies indicated otherwise. She demonstrated evidence of both congestive heart failure and acute renal failure. More specifically there were concerns for significant hyperkalemia and anasarca. Nephrology has been involved and is recommending renal replacement therapy. Patient denies any antecedent history of kidney problems. She states that she continues to urinate but finds some increased difficulty with this. Patient has no history of prior central line placement. [facility] Medical History Congestive heart failure Hypothyroidism Osteoporosis Morbid obesity with BMI of 45.0-49.9, adult Wears glasses Post-menopausal Thyroid disease Diabetes Uses wheelchair Ambulates with cane Arthritis High cholesterol Back pain TIA (transient ischemic attack) Dietary restriction Non-smoker History of pain when walking History of transesophageal echocardiography (DESTIN) Cardiology follow-up encounter Hypertension Hypertension Diabetes Home Medications ?Medication ?Instructions ?Recorded ?Last Taken ?Type atorvastatin 10 mg tablet 10 mg PO QHS cholesterol 08/31/22 03/12/25 History levothyroxine 100 mcg tablet 100 mcg PO DAILY thyroid 08/31/22 03/13/25 History (Synthroid) aspirin 81 mg chewable tablet 81 mg PO DAILYCM 90 days #90 tabs 10/21/24 03/13/25 Rx carvedilol 6.25 mg tablet (Coreg) 6.25 mg PO BID #60 tabs 12/01/24 03/13/25 Rx dapagliflozin propanediol 10 mg 10 mg PO QDAY #30 tabs 03/12/25 Unknown Rx tablet (Farxiga) furosemide 40 mg tablet 40 mg PO QAM #30 tabs 03/12/25 03/13/25 Rx metformin 500 mg tablet 500 mg PO BID 03/12/25 03/13/25 History Allergy/AdvReac Type Severity Reaction Status Date / Time No Known Allergies Allergy Verified 03/13/25 13:58 Family History Mother Hypertension Father Heart disease Surgical History Hx of colonoscopy Hx of cholecystectomy H/O: hysterectomy Social History household members: spouse Smoking Status: Never smoker alcohol intake: never substance use type: does not use caffeine: No Physical Exam Const alert Nutritional Appearance: obese Chest Chest Narrative: No rashes, inflammatory changes, or signs of infection to bilateral upper chest/lower neck. Resp Resp Narrative: Mildly tachypneic with shallow inspiratory effort Lab / Micro Data 03/14/25 06:05 03/15/25 06:15 Labs: Laboratory Results - last 24 hr 03/14/25 11:38: POC Glucose 69 L 03/14/25 12:18: Sodium 143, Potassium 6.3 H*, Chloride 114 H, Carbon Dioxide TNP, Anion Gap UNABLE TO CALCULATE L, BUN 95 H, Creatinine 5.34 H, Estim Creat Clear Calc 10.79 L, Est GFR (MDRD) Non-Af 8 L, BUN/Creatinine Ratio 17.7, Glucose 71, Calcium 8.7, Total Creatine Kinase 26 03/14/25 12:41: POC Glucose 76 03/14/25 15:39: POC Glucose 137 H 03/14/25 18:00: Urine Creatinine 230.00 H 03/14/25 20:40: POC Glucose 119 H 03/15/25 06:15: Sodium 138, Potassium 6.2 H*, Chloride 111 H, Carbon Dioxide 14.7 L, Anion Gap 12, BUN 93 H, Creatinine 5.79 H, Estim Creat Clear Calc 10.10 L, Est GFR (MDRD) Non-Af 7 L, BUN/Creatinine Ratio 16.1, Glucose 106 H, Calcium 8.5 03/15/25 06:27: POC Glucose 99 03/15/25 10:05: PT 15.5 H, INR 1.2, APTT 28.0 Imaging Radiology Impression Renal Ultrasound 03/14/25 11:12 IMPRESSION: No hydronephrosis to suggest obstruction. Reading Location: [id number] Charges/Coding Visit Charges Inpatient E&M: 54953 Init Hosp L2
[2025-03-15 12:33] LABS: Bedside Glucose 153 mg/dL (74-106)
--- NOTE | 2025-03-15 14:13 | CASEMGMT ---
CM was notified by Lena from Nephro that the pt will require OP HD set up for JOSUE. Tunneled catheter as well as Hep B are ordered for tomorrow. RN CM to pt room at this time. Pt sitting up in bed. Pt states that she prefers to go to [facility] and that she has transportation through her . Pt states that she prefers a TTS schedule and an afternoon chair time. Pt denies further questions or concerns. Referral placed via the [facility] at this time. CM to follow. [employer] ANIYAH notified.
[2025-03-15 15:00] VITALS: BP 114/48; PULSE 70; RESP 22; TEMP 36.1; O2SAT 96
[2025-03-15 15:54] LABS: Potassium 5.8 mmol/L (3.3-5.1)
--- NOTE | 2025-03-15 16:00 | CASEMGMT ---
Rosa @ [facility] calls this RN CM and is requesting this RN CM to speak with the pt again about the FOC. Rosa states that she had a previous HD pt that came from [place] who eventually ran into transportation issues and had to be transferred to [facility] in [place]. RN CM to pt room at this time. Pt at bedside. Pt states that he is retired and that transportation is not an issue. Pt states that the pt also has plenty of family that can drive the pt. Pt also reports that she plans to drive herself once she gets stronger. Pt is aware that [facility] in [place] is 30 minutes away compared to the [facility] in [place] that is about 27 minutes away from her home. Pt and pt's state that the pt's PCP and heart doctor are located in [place] and that they would like to keep everything in one location. Pt and pt do not want to get set up with a different double end chucking machine operator in [place]. Pt and pt are adamant about keeping [facility] in [place] as their preferred OP HD facility of choice. TC to [facility] in [place]. Rosa has left for the day but this RN CM talked to another professional. This RN CM update [facility] in [place] who states understanding. [facility] in [place] states that the pt has already been pushed through their system and that the pt already has a tentative scheduled letter. CM to follow. Moving forward, the pts DC plan is TBD as she is scheduled for a tunneled catheter tomorrow. Pt and pt are open to SNF needs if warranted. However, pt and pt would like to see how the pt progresses in the hospital prior to making finalized DC plans. Pt and pt decline further questions or concerns at this time.
[2025-03-15 16:43] VITALS: BP 147/60; PULSE 61; RESP 22; TEMP 36.3; O2SAT 98
[2025-03-15 17:06] LABS: Bedside Glucose 149 mg/dL (74-106)
[2025-03-15 21:28] VITALS: BP 115/66; PULSE 70; RESP 20; TEMP 36.3; O2SAT 95
[2025-03-15] MEDS: Insulin Lispro 100 UNIT/ML INSULN.PEN SC (21:37)
[2025-03-15] MEDS: Atorvastatin Calcium 10 MG Tablet PO (21:37)
[2025-03-15] MEDS: Ceftriaxone 1 GM/50 ML BAG IV (21:38)
[2025-03-15 21:59] LABS: Bedside Glucose 176 mg/dL (74-106)
[2025-03-16] VITALS (20 sets, daily range): BP systolic 92–175; BP diastolic 48–81; PULSE 52–71; RESP 14–22; TEMP 36–36.7; O2SAT 92–97; BMI 52.0; BMI 52.7; BMI 52.1
[2025-03-16 05:16] LABS: Basophil# 0.02 X10^3/uL; Basophil% 0.2 % (0-1); Eosinophil# 0.19 X10^3/uL; Eosinophils% 2.3 % (0-5); Hematocrit 35.6 % (37-47); Hemoglobin 10.4 g/dL (12.0-15.0); Lymphocyte % 13.5 % (19-41); Mean Corp Hgb Conc 29.2 g/dL (32-36); Mean Corpuscular Hgb 25.6 pg (27.0-32.0); Mean Corpuscular Volume 87.5 fL (81-99); Mean Platelet Vol. 9.3 fl (6.2-12.0); Monocyte# 0.76 X10^3/uL; Monocyte% 9.3 % (0-10); NRBC Flagged by Analyzer 0.7 % (0-5); Neutrophil # 6.04 X10^3/uL (2.7-7.7); Neutrophil % 74.3 % (47-70); Platelet Count 187 K/mm3 (150-450); RBC Distribution Width CV 17.5 % (11.6-14.6); RBC Distribution Width SD 55.1 fl (35.1-43.9); Red Blood Count 4.07 M/mm3 (4.2-5.4); White Blood Count 8.1 K/mm3 (4.4-11.0)
[2025-03-16 06:07] LABS: Anion Gap 13 (5-15); BUN 96 mg/dL (4-19); BUN/Creat Ratio 16.2 RATIO (10-20); Calcium,Total 8.2 mg/dL (7.6-11.0); Carbon Dioxide 16.4 mmol/L (21.0-32.0); Chloride 108 mmol/L (98-108); Creatinine, Serum 5.96 mg/dL (0.70-1.20); EST Glomerular Filtration Rate 7 (>60); Estimated Creatinine Clearance 9.88 ml/min (50-250); Glucose 138 mg/dL (70-99); Potassium 5.6 mmol/L (3.3-5.1); Sodium Level 137 mmol/L (133-145)
[2025-03-16] MEDS: Levothyroxine 100 MCG Tablet PO (06:20)
[2025-03-16 06:35] LABS: Hemoglobin A1c 7.3 % (<=5.6)
[2025-03-16 06:39] LABS: Bedside Glucose 130 mg/dL (74-106)
[2025-03-16 06:43] LABS: Hepatitis B Surface Antigen Nonreactive (Nonreactive)
[2025-03-16] MEDS: Nystatin Powder 15gm Bottle 1 APPLIC TOPICAL ×2 (08:35→21:45)
[2025-03-16] MEDS: Carvedilol 6.25 MG Tablet PO ×2 (08:36→18:23)
[2025-03-16] MEDS: 0.9% Normal Saline (500mL Bag) 500 ML 15 ML IV (10:07)
--- NOTE | 2025-03-16 10:21 | PCM.PRE.AN2 ---
ASA Classification* ASA Classification ASA Classification: 3 Assessment & Plan Anesthesia* Anesthesia Assessment Anesthesia Assessment: Discussed sedation and/or anesthesia options, risks, benefits, and alternatives with patient/parents/legal guardian/POA. Questions invited. The patient/parents/legal guardian/POA seems to understand and agrees to proceed with anesthesia plan. Reviewed the physical assessment, medical history, allergy history and patient home medications list prior to surgery/procedure/anesthetic and documented any changes. Performed airway and anesthesia risk assessments. Anesthesia Type Anesthesia Type: MAC Anesthesia Focused Assessment* Temperature: 97.6 F Pulse Rate: 71 Blood Pressure: 135/62 Respiratory Rate: 20 Pulse Ox: 92 Oxygen Flow Rate (L/min): 2 Airway Assessment Mouth opens: >3 cm Mallampati Score: II Focused Labs Anesthesia Preop lab: CBC WBC 8.1 K/mm3 (4.4-11.0) 03/16/25 04:04 03/16/25 RBC 4.07 M/mm3 (4.2-5.4) L 03/16/25 04:04 03/16/25 Hgb 10.4 g/dL (12.0-15.0) L 03/16/25 04:04 03/16/25 Hct 35.6 % (37-47) L 03/16/25 04:04 03/16/25 Plt Count 187 K/mm3 (150-450) 03/16/25 04:04 03/16/25 CHEMISTRY Potassium 5.6 mmol/L (3.3-5.1) H 03/16/25 04:04 03/16/25 Sodium 137 mmol/L (133-145) 03/16/25 04:04 03/16/25 Magnesium 2.6 mg/dL (1.5-2.2) H 03/13/25 15:11 03/13/25 Phosphorus 5.5 mg/dL (2.7-4.5) H 03/13/25 15:11 03/13/25 BUN 96 mg/dL (4-19) H 03/16/25 04:04 03/16/25 Creatinine 5.96 mg/dL (0.70-1.20) H 03/16/25 04:04 03/16/25 Glucose 138 mg/dL (70-99) H 03/16/25 04:04 03/16/25 POC Glucose 130 mg/dL (74-106) H 03/16/25 06:19 03/16/25 TSH 0.224 uIU/mL (0.358-3.740) L 10/18/24 05:35 10/18/24 COAG PT 15.5 SECONDS (11.7-14.9) H 03/15/25 10:05 03/15/25 Pre-Assessment Diagnosis/Proposed Procedure Planned Operative Procedure(s): insertion hemodialysis catheter Anesthesia History Anesthesia History - medical staff credentialing coordinator: Anesthesia History - medical staff credentialing coordinator Hx Hospitalization No 11/05/22 15:04 Any Problems With Anesthesia No 03/16/25 08:00 Cholinesterase deficiency No 03/16/25 08:00 You/Your Family Experience No 03/16/25 08:00 fever (hyperthermia) with Relationship Recent Exposure to Contagious No 03/16/25 08:00 Disease Does patient have nerve No 03/16/25 08:00 stimulator Patient instructed to have device shut off --Does patient have Pacemaker No 03/16/25 08:00 or ICD? When Was Last Pacemaker Check QUESTION #4 FULL TEXT: You/Your Family Experience fever (hyperthermia) with Anesthesia Last Oral Intake Last Oral intake: Last Oral Intake NPO since 00:01 03/16/25 08:00 Meds taken in AM with sips of Yes 03/16/25 08:00 water? Meds patient instructed to coreg 03/16/25 08:00 take am of surgery PONV PONV - medical staff credentialing coordinator: PONV - medical staff credentialing coordinator Female HX of Motion Sickness HX of N/V After Surgery Non-Smoker Duration of Surgery greater than 60 minutes Number of Risk Factors PONV Score Height & Weight Height & Weight: Anesthesia: Height & Weight Height 4 ft 11.84 in 03/16/25 08:00 Weight: 121.8 kg 03/16/25 08:00 Body Mass Index (BMI) 52.7 03/16/25 08:00 Respiratory Assessment Respiratory Assessment - medical staff credentialing coordinator: Respiratory Tract Infection Hx - medical staff credentialing coordinator Hx Respiratory Tract Infection No 03/16/25 08:00 STOP Sleep Apnea STOP Sleep Apnea - medical staff credentialing coordinator: STOP Sleep Apnea - medical staff credentialing coordinator Hx Hypertension Yes 03/14/25 14:42 Hx Sleep Apnea No 03/13/25 19:56 CPAP BIPAP Do you snore loudly (louder No 03/13/25 19:56 than talking or can be heard Do you often feel tired/ No 03/13/25 19:56 fatigued/ sleepy during daytime? Has anyone observed you stop No 03/13/25 19:56 breathing during sleep? STOP Results Negative 03/13/25 19:56 QUESTION #5 FULL TEXT : Do you snore loudly (louder than talking or can be heard through closed doors)? 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 Specify any problems Hx of Preganancy in last 3 No 03/13/25 19:56 Months Nurse Filling Out Transfusion RWALKER 03/13/25 19:56 & Questions: Date: 03/13/25 03/13/25 19:56 Time: 20:05 03/13/25 19:56 Patient unable to answer at this time (ie. confused, unrespo /Reproduction History /Reproductive History - medical staff credentialing coordinator: /Reproductive Hx- medical staff credentialing coordinator Hx Now No 03/16/25 08:00 Gestational Age (in weeks): EDC: Hx Hx Para Hx Section SAB No 03/16/25 08:00 Active Medications Active Medications: Current Medications Generic Name Dose Route Start Last Admin Trade Name Freq PRN Reason Stop Dose Admin Aspirin 81 mg 03/14/25 08:00 03/16/25 07:46 Aspirin 81 Mg Tab.Chew PO Not Given BREAKFAST YOLI Atorvastatin Calcium 10 mg 03/13/25 22:00 03/15/25 21:37 Atorvastatin Calcium 10 Mg Tablet PO 10 mg QHS YOLI Administration Carvedilol 6.25 mg 03/14/25 08:00 03/16/25 08:36 Carvedilol 6.25 Mg Tablet PO 6.25 mg BIDCM YOLI Administration Protocol Hemodialysis Solution 6 bag 03/15/25 10:45 03/15/25 13:33 Pureflow B 2k Dialysis Soln 1 Bag PF 03/16/25 12:39 Not Given UD YOLI Protocol Heparin Sodium (Porcine) 1,000 - 3,000 units 03/15/25 10:37 Heparin 10,000 Units/10 Ml Vial IV 03/16/25 12:37 X1 PRN HD catheter closing Heparin Sodium (Porcine) 5,000 unit 03/15/25 22:00 03/16/25 07:46 Heparin Injection (Vial) 5,000 Unit/Ml Vial SC Not Given BID YOLI Ceftriaxone Sodium 1 gm in 50 mls @ 100 mls/hr 03/14/25 22:00 03/15/25 22:08 Rocephin IV Infused Q24@2200 YOLI Infusion Sodium Chloride 100 mls @ 15 mls/hr 03/14/25 09:02 IV .Q6H40M PRN Saline Flush Sodium Chloride 100 mls @ 15 mls/hr 03/14/25 09:02 IV .Q6H40M PRN Additional IVPB Infusion Cefazolin Sodium 3 gm/ Sodium 115 mls @ 150 mls/hr 03/16/25 11:00 Chloride IV 03/16/25 11:45 X1 ONE Sodium Chloride 500 mls @ 0 mls/hr 03/16/25 10:15 03/16/25 10:07 IV 15 mls/hr .Q0M YOLI Administration KVO Insulin Human Lispro 0 unit 03/14/25 07:00 03/16/25 06:19 Insulin Lispro 100 Unit/Ml Insuln.Pen SC Not Given ACHS PENDING SALE TO [facility] Protocol Levothyroxine Sodium 100 mcg 03/14/25 06:00 03/16/25 06:20 Levothyroxine 100 Mcg Tablet PO 100 mcg DAILY@0600 YOLI Administration Nystatin 1 applic 03/13/25 22:00 03/16/25 08:35 Nystatin Powder 15gm Bottle TOPICAL 1 applic BID YOLI Administration Protocol Sodium Chloride 10 - 40 ml 03/14/25 09:02 03/15/25 21:40 0.9% Saline Lock 10 Ml Syringe IV 10 ml UD PRN Administration SALINE FLUSH Sodium Chloride 1,000 ml 03/15/25 10:40 03/15/25 13:32 0.9% Normal Saline 1,000 Ml Iv.Soln. OPERA.SITE 03/16/25 12:37 Not Given X1 YOLI Sodium Chloride 200 ml 03/15/25 10:37 0.9% Normal Saline 1,000 Ml Iv.Soln. IV 03/16/25 12:37 X1 PRN to maintain SBP >90mmHg during Dialysis PFSH Medical History Congestive heart failure Hypothyroidism Osteoporosis Morbid obesity with BMI of 45.0-49.9, adult Wears glasses Post-menopausal Thyroid disease Diabetes Uses wheelchair Ambulates with cane Arthritis High cholesterol Back pain TIA (transient ischemic attack) Dietary restriction Non-smoker History of pain when walking History of transesophageal echocardiography (DESTIN) Cardiology follow-up encounter Hypertension Hypertension Diabetes Home Medications ?Medication ?Instructions ?Recorded ?Last Taken ?Type atorvastatin 10 mg tablet 10 mg PO QHS cholesterol 08/31/22 03/12/25 History levothyroxine 100 mcg tablet 100 mcg PO DAILY thyroid 08/31/22 03/13/25 History (Synthroid) aspirin 81 mg chewable tablet 81 mg PO DAILYCM 90 days #90 tabs 10/21/24 03/13/25 Rx carvedilol 6.25 mg tablet (Coreg) 6.25 mg PO BID #60 tabs 12/01/24 03/13/25 Rx dapagliflozin propanediol 10 mg 10 mg PO QDAY #30 tabs 03/12/25 Unknown Rx tablet (Farxiga) furosemide 40 mg tablet 40 mg PO QAM #30 tabs 03/12/25 03/13/25 Rx metformin 500 mg tablet 500 mg PO BID 03/12/25 03/13/25 History Allergy/AdvReac Type Severity Reaction Status Date / Time No Known Allergies Allergy Verified 03/13/25 13:58 Family History Mother Hypertension Father Heart disease Surgical History Hx of colonoscopy Hx of cholecystectomy H/O: hysterectomy Social History household members: spouse Smoking Status: Never smoker alcohol intake: never substance use type: does not use caffeine: No Review of Systems (Anesthesia) ROS Narrative System reviewed and no additional complaints, except as documented.
--- NOTE | 2025-03-16 10:42 | PCM.PN.HOSP ---
Reason for Visit Reason for Visit: Diagnoses Hyperkalemia (03/13/25) Essential (primary) hypertension (03/13/25) Pulmonary hypertension, unspecified (03/13/25) Nonrheumatic aortic (valve) stenosis (03/13/25) Acute on chronic systolic (congestive) heart failure (03/13/25) Acute kidney failure, unspecified (03/13/25) Chronic kidney disease, unspecified (03/13/25) Subjective Subjective Saw patient at bedside this morning. Patient appeared similar today to previous days, was laying back comfortably in bed and in no acute distress but did appear fatigued. She continued to report generalized malaise but no specific pain or discomfort. Gwen with wound care was in the room when I saw patient and noted that her toe findings were consistent with dry gangrene and it did probe to bone, so podiatry consult will be placed. Patient denies any pain or discomfort in her toes. No other new concerns today. Objective Data Objective Data Vital Signs: Vital Signs Temp Pulse Resp BP Pulse Ox O2 Del Method O2 Flow Rate 97.6 F L 71 20 H 135/62 H 92 Nasal Cannula 2 03/16/25 10:21 03/16/25 10:21 03/16/25 10:21 03/16/25 10:21 03/16/25 10:21 03/16/25 08:20 03/16/25 10:21 Oxygen Flow Rate (L/min) 2 Oxygen Delivery Method Nasal Cannula Weight: 121.8 kg Body Mass Index (BMI) 52.7 Intake & Output: Intake and Output for Last 24 Hours 03/14/25 03/15/25 03/16/25 23:59 23:59 23:59 Intake Total 300 / 300 490 / 490 Output Total 150 / 150 150 / 150 50 / 50 Balance 150 / 150 340 / 340 -50 / -50 Lab / Micro Data 03/16/25 04:04 03/16/25 04:04 Labs: Laboratory Results - last 24 hr 03/13/25 18:33: Hep Bs Antigen Nonreactive 03/15/25 10:05: PT 15.5 H, INR 1.2, APTT 28.0 03/15/25 11:25: POC Glucose 153 H 03/15/25 15:10: Potassium 5.8 H 03/15/25 16:39: POC Glucose 149 H 03/15/25 21:36: POC Glucose 176 H 03/16/25 04:04: WBC 8.1, RBC 4.07 L, Hgb 10.4 L, Hct 35.6 L, MCV 87.5, MCH 25.6 L, MCHC 29.2 L, RDW Std Deviation 55.1 H, RDW Coeff of Leif 17.5 H, Plt Count 187, MPV 9.3, Immature Gran % (Auto) 0.400, Neut % (Auto) 74.3 H, Lymph % (Auto) 13.5 L, Harmon % (Auto) 9.3, Eos % (Auto) 2.3, Baso % (Auto) 0.2, Absolute Neuts (auto) 6.0, Absolute Lymphs (auto) 1.10, Nucleated RBC % 0.7, Sodium 137, Potassium 5.6 H, Chloride 108, Carbon Dioxide 16.4 L, Anion Gap 13, BUN 96 H, Creatinine 5.96 H, Estim Creat Clear Calc 9.88 L*, Est GFR (MDRD) Non-Af 7 L, BUN/Creatinine Ratio 16.2, Glucose 138 H, Hemoglobin A1c 7.3 H, Calcium 8.2 03/16/25 06:19: POC Glucose 130 H Micro: Microbiology 03/14/25 18:00 Urine Catheter - Catheter Urine Culture - Preliminary Culture exhibits no growth. Physical Exam Const alert and no apparent distress Constitutional Narrative: Elderly female, class III obesity, mildly fatigued appearing, alert and oriented to person and place but not time and some confusion with answering questions, otherwise sitting back comfortably in bed and in no acute distress. Stable. General Appearance: cooperative and comfortable HEENT normocephalic, head/scalp atraumatic, hearing grossly normal bilaterally, nasal mucous membranes and turbinates normal and moist oral mucous membranes Eyes PERRL, EOMs intact bilaterally and conjunctivae normal Neck full ROM Chest inspection of chest normal Resp normal respiratory effort and no use of accessory muscles Resp Narrative: Breathing comfortably on 2 L nasal cannula at rest. Decreased breath sounds in bilateral lung bases with mild crackles noted, no wheezing noted. Stable. Cardio regular rate, regular rhythm, no murmurs and peripheral pulses 2+ throughout GI normal to inspection, nondistended, normoactive bowel sounds, soft to palpation, non-tender and non-distended Back/Spine normal ROM Extremity Extremity Narrative: +2-3 lower extremity pitting edema noted. Stable. Toe wounds with black eschar noted consistent with dry gangrene. Skin no rashes or lesions noted Neuro moves all extremities and no focal motor deficits Assessment & Plan Assessment/Plan (1) Acute on chronic renal failure: (2) Hyperkalemia: PLAN: Plan Patient is a 74-year-old female who presented to [facility] ED on 03/13/2025 with fatigue and abnormal labs. 1. Severe JOSUE on CKD stage IIIb with hyperkalemia and metabolic acidosis ? Nephrology following. Creatinine 5.10, BUN 88, potassium 6.7 on admit. Baseline creatinine 1.6-1.7. Potassium worsened to 7.4 on morning of 03/14; no EKG changes noted and treated with calcium/insulin/dextrose/Kayexalate/sodium bicarbonate push with repeat potassium 6.3. Unclear etiology for JOSUE at this time. Renal ultrasound benign. Appears volume overloaded on exam but urine sodium low. Given 1 dose of IV Lasix with very minimal urine output. Repeat BMPs on 03/15 and 03/16 without improvement. Surgery planning to place tunneled HD catheter this morning and dialysis will be initiated this afternoon. Monitor daily labs. 2. Acute on chronic HFrEF with hypoxia, hypertension, hyperlipidemia ? Cardiology following. Initially diagnosed with HFrEF with EF 40 to 45% in October. Was started on Coreg and lisinopril then but unfortunately repeat echo on 12/12 showed EF of 30% with moderate to severe global LV hypokinesis. Saw cardiology in the office on 03/12 and noted to have 17 pound weight gain. Labs drawn on 03/12 with findings as above as well as BNP greater than 70,000. Planning for dialysis as noted above. Appreciate cardiology and nephrology recommendations going forward. Okay to continue home aspirin, statin and Coreg. 3. Acute on chronic debility ? PT/OT/case management following. Patient with fairly poor therapy scores, will likely need SNF placement on discharge. 4. Concern for UTI ? UA with 500 leukocyte esterase, negative nitrates, 4+ bacteria, 50-100 WBCs. Urine culture with no growth. Will complete 5-day course of IV ceftriaxone for empiric treatment. 5. Elevated troponin ? Cardiology following as above. Troponin trend 159 > 159 > 160 on admit. No new ischemic EKG changes noted. No chest pain noted. Suspected demand ischemia secondary to HFrEF and JOSUE as noted above, no further cardiac workup needed. Chronic medical conditions: ? Class III obesity: BMI 50 on admit. Complicates hospital course, care and prognosis. ? Type 2 diabetes mellitus: Hold home metformin and dapagliflozin. Treating with sliding scale insulin with meals for now, adjust as needed. ? Hypothyroidism: Continue home Synthroid. DVT prophylaxis: Heparin subcu CODE STATUS: Full code, verified Expected disposition: Likely SNF, TBD Total clinical time spent by myself addressing the patient's medical issues, reviewing all the data, and collaborating with patient's care team: 35 minutes. Charges/Coding Visit Charges Inpatient E&M: 84628 Subs Hosp L2
[2025-03-16] MEDS: Cefazolin 3 GM in 0.9% Normal Saline (100mL Bag) 100 ML IV (11:26)
--- NOTE | 2025-03-16 11:40 | WOUNDNOTE ---
wound photo: right great toe
--- NOTE | 2025-03-16 11:41 | WOUNDNOTE ---
wound photo: left 2nd toe
[2025-03-16 11:44] LABS: M R Staph aureus DNA By PCR Negative (Negative); Probe Check PASS; Specimen Processing Control PASS; Staph aureus DNA By PCR NEGATIVE (Negative)
[2025-03-16 12:08] LABS: Anti-dsDNA Ab <1 IU/mL (0-9)
[2025-03-16] MEDS: Bupivacaine Mpf 0.5% 30 ML VIAL (12:29)
[2025-03-16] MEDS: Heparin 10,000 UNITS/10 ML Vial 10000 UNITS (12:36)
--- NOTE | 2025-03-16 12:40 | PCM.OPRPT ---
Procedures Cardiovascular CF Procedures [id number]: [id number] Insert tunneled cv cath Operative Report (Standard) Operative Information Date of Procedure: 03/16/25 Pre-Operative Diagnosis: Acute on chronic renal failure requiring initiation of hemodialysis Post-Operative Diagnosis: Same Surgery/Procedure Performed: Ultrasound and fluoroscopic guided insertion of right internal jugular tunneled hemodialysis cath supervisor spinning: No Type of Anesthesia: MAC/Supplemental RN Documented Start/Stop Times: Operation Date: 03/16/25 11:00 Case Time Into Pre-Op 03/16/25 10:02 Anesthesia Start 03/16/25 11:26 Into Room 03/16/25 11:26 Procedure Start 03/16/25 12:04 Procedure End 03/16/25 12:35 Anesthesia End 03/16/25 12:44 Out of Room 03/16/25 12:44 Into Recovery 03/16/25 12:45 Out of Recovery 03/16/25 13:27 Procedure Start Time: 12:04 Procedure Stop Time: 12:35 Select all DRAINS/GRAFTS/IMPLANTS that apply: Implanted device (Palindrome 14.5 Hungarian by 19 cm) Implanted device details: Reference [id number], lot [id number] Estimated Blood Loss: 15 Specimen collected: No Description of surgery: After appropriate identification in the preoperative holding area the patient was brought to the operating room where they were positioned supine on the operating room table. Preoperative antibiotics were completely administered by anesthesia. Sedation was begun per anesthesia and I confirmed patency of the right internal jugular vein with bedside ultrasound. Sedation was begun by anesthesia. It became quickly apparent that patient cannot lie flat without desaturating so she was placed in slight reverse Trendelenburg and a nonrebreather mask was fitted. After saturations improved her neck was prepped and draped in the usual sterile fashion. Formal timeout was conducted to confirm both the patient and the procedure. Procedure was begun with ultrasound-guided access of the right internal jugular vein using a using the standard 035 guidewire. Although the vein was accessed was 1 attempt the wire required a second attempt to feed in an antegrade fashion due to some resistance with the initial passage. However the second attempt was made with less resistance and fluoroscopy confirmed appropriate position of the wire. At this point I made a measurement from the insertion site to the mid atrium of approximately 16 cm. Desiring some room for the patient's tunneling/cuff placement, elected to proceed with a 19 cm catheter. The insertion site was then enlarged sharply and bluntly. Measuring back from the proximal insertion site on the catheter, we determined that the tunneling site would need to be approximately 6 cm away from the insertion site. Therefore this was measured out on the patient's chest and a counterincision was made at this point after instilling local anesthetic. A gentle curve of the tunneling tract to the insertion site was also instilled with local anesthetic. Then the catheter was connected to the tunneling device and was tunneled to the insertion site confirming the position of the catheter cuff within the tunnel. Next the insertion site was serially dilated and the peel-away sheath was placed under fluoroscopy. The catheter was fed through the peel-away sheath and once we neared completion another fluoroscopic image was obtained. Functionally, the catheter was tested with aspiration and flush of injectable saline which it did with ease. The insertion site was then closed with a 2 interrupted 2-0 nylon stitches. Another 2-0 nylon stitch was used to close down the insertion site at the tunneling entrance as a means of creating a cerclage. Lastly, the catheter was secured at the tiedown points on each port with a interrupted 2-0 nylon. Now the catheter was locked with 2 mL heparinized saline (concentration 1000 units/mL) per package specification. Chlorhexidine gel dressing was placed about the catheter. A small OpSite was applied to the insertion site. Patient was then allowed to emerge from sedation and was taken to PACU in stable condition. A chest x-ray was ordered in PACU for review of the catheter placement and to exclude pneumothorax. Surgical Findings: ? Significant challenge with exposure given patient's large embolism and limited neck ? Large and widely patent right internal jugular vein with apparently normal venous anatomy Complications Complications: No
--- NOTE | 2025-03-16 12:45 | RAD_ITS ---
PROCEDURE: FOOT MIN 3 VIEWS 03/16/2025 REASON FOR EXAM: FOOT WOUNDS TECHNIQUE: 3 views of the right foot. COMPARISON: None. FINDINGS: Bones: Diffuse osseous demineralization. 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 There is narrowing of the 1st interphalangeal joint. Joints: Normal alignment. Severe degenerative changes. Soft tissues: Mild soft tissue swelling/edema. Other: Vascular calcifications. No radiopaque foreign body or subcutaneous gas. RAD/Foot min 3 Views IMPRESSION: Cortical bone irregularity along the medial aspect of the 1st distal phalanx (1 st great toe). Narrowing of the 1st interphalangeal joint concerning for intra-articular involvement. Reading Location: [id number]
--- NOTE | 2025-03-16 12:45 | RAD_ITS ---
PROCEDURE: FOOT MIN 3 VIEWS 03/16/2025 REASON FOR EXAM: WOUND TECHNIQUE: 3 views of the left foot. COMPARISON: None. FINDINGS: Bones: Diffuse osseous demineralization. No acute fracture or suspicious osseous lesion. Joints: Normal alignment. Moderate degenerative changes. Soft tissues: Mild soft tissue swelling/edema. Other: Vascular calcifications. No radiopaque foreign body or subcutaneous gas. RAD/Foot min 3 Views IMPRESSION: DEGENERATIVE OSTEOARTHROSIS. NO ACUTE FINDINGS. Reading Location: [id number]
--- NOTE | 2025-03-16 12:45 | RAD_ITS ---
PROCEDURE: CXR FOR LINE PLACEMENT (RADCXRLP), 03/16/2025 REASON FOR EXAM: STATUS POST LINE PLACEMENT TECHNIQUE: A single portable AP view of the chest was obtained. COMPARISON: 03/13/2025 FINDINGS: Placement of RIGHT IJ CVC with tip projecting over the mid to lower SVC. No visible pneumothorax. Otherwise similar appearance of the chest. RAD/CXR for Line Placement IMPRESSION: 1. Placement of RIGHT IJ CVC with tip projecting over the mid to lower SVC. No visible pneumothorax. 2. Otherwise similar appearance of the chest. Reading Location: [id number]
--- NOTE | 2025-03-16 12:47 | ART_ITS ---
Reason For Study Reason For Study: RLE ULcer Procedure A bilateral lower extremity continuous wave Doppler with analog waveform analysis and ankle brachial indexes. Left Segmental Pressures Left brachial= 101mmHg. Left posterior tibial artery = 145mmHg. Left dorsalis pedis artery = >254mmHg. Left digit = 76 mmHg. The left posterior tibial artery waveforms are triphasic. The left dorsalis pedis waveforms are triphasic. Right Segmental Pressures Right posterior tibial artery = 211mmHg. Right dorsalis pedis artery = >254mmHg. Unable to acquire digit due to open wound. The right posterior tibial artery waveforms are biphasic. The right dorsalis pedis waveforms are biphasic. Indices The right ankle brachial index by the posterior tibial artery is N/C. The right ankle brachial index by the dorsalis pedis is N/C. The left ankle brachial index by the posterior tibial artery is 1.44. The left ankle brachial index by the dorsalis pedis is N/C. VL/Ankle Brachial Index Interpretation Summary Right ROJELIO 2.09, artificially elevated. Doppler/PVR waveforms of the right ankle mildly diminished at rest. Left ROJELIO 1.44, normal. TBI and Doppler/PVR waveforms of the left ankle normal a t rest. Ordering Physician: Lucas Coronado Referring Physician: Donal Castle Performed By: Nabor Colorado RVT
--- NOTE | 2025-03-16 12:51 | PCM.POST.ANE ---
Anesthesia: Postop Eval I Current Vital Signs Temperature: 96.8 F Pulse Rate: 68 Blood Pressure: 121/53 Respiratory Rate: 18 Pulse Ox: 94 Assessment Airway patent: Yes Spontaneous unlabored respirations: Yes nausea: No Vomiting: No Anesthesia Complication: No Fluid Hydration Crystalloid volume administer (ml): 300 Total IV fluid infused: 300 Progress Note Anesthesia document: Postop Eval 1 completed: Yes
--- NOTE | 2025-03-16 13:01 | POSTOPAN2_ITS ---
Anesthesia Postop Eval I Sum Postop Eval Completion status Anesthesia document: Postop Eval 1 completed: Yes Anesthesia Postop Eval I Summary Anesthesia Postop Eval I Summary: Anesthesia Postop Eval I: Assessment Summary Airway patent Yes 03/16/25 12:51 SEMICONDUCTOR PROCESSING [email or web address] Spontaneous unlabored Yes 03/16/25 12:51 SEMICONDUCTOR PROCESSING [email or web address] respirations Mental status nausea No 03/16/25 12:51 SEMICONDUCTOR PROCESSING [email or web address] Vomiting No 03/16/25 12:51 SEMICONDUCTOR PROCESSING [email or web address] Anesthesia Postop Eval I: Fluid Summary Crystalloid volume administer 300 03/16/25 12:51 SEMICONDUCTOR PROCESSING [email or web address] (ml) Colloids volume administered ( ml) Blood Product volume administered (ml) Total IV fluid infused 300 03/16/25 12:51 SEMICONDUCTOR PROCESSING [email or web address] Anesthesia Postop Eval I: Summary Notes Anesthesia Complication No 03/16/25 12:51 SEMICONDUCTOR PROCESSING [email or web address] Anesthesia Complication Comment: Post-operative progress note Anesthesia: Postop Eval II Evaluation Mental status: Awake Pain Level: 0 nausea: No Vomiting: No
--- NOTE | 2025-03-16 13:01 | PCM.POSTANE2 ---
Anesthesia Postop Eval I Sum Postop Eval Completion status Anesthesia document: Postop Eval 1 completed: Yes Anesthesia Postop Eval I Summary Anesthesia Postop Eval I Summary: Anesthesia Postop Eval I: Assessment Summary Airway patent Yes 03/16/25 12:51 [email or web address] Spontaneous unlabored Yes 03/16/25 12:51 PROCESS [email or web address] respirations Mental status nausea No 03/16/25 12:51 [email or web address] Vomiting No 03/16/25 12:51 [email or web address] Anesthesia Postop Eval I: Fluid Summary Crystalloid volume administer 300 03/16/25 12:51 [email or web address] (ml) Colloids volume administered ( ml) Blood Product volume administered (ml) Total IV fluid infused 300 03/16/25 12:51 [email or web address] Anesthesia Postop Eval I: Summary Notes Anesthesia Complication No 03/16/25 12:51 [email or web address] Anesthesia Complication Comment: Post-operative progress note Anesthesia: Postop Eval II Evaluation Mental status: Awake Pain Level: 0 nausea: No Vomiting: No
--- NOTE | 2025-03-16 13:32 | CON.PCM_ITS ---
Assessment & Plan Assessment/Plan (1) Other acute osteomyelitis, right ankle and foot: PLAN: Exam performed. Vital signs stable. Patient seen in PACU recovering from tunnel catheter placement for dialysis purposes. Patient is ESRD with creatinine of 5.96, BUN 96. Patient has no leukocytosis or acute systemic signs of infection. Locally patient has clinical evidence of osteomyelitis to the right distal phalanx of the hallux. Radiographs were ordered, arterial studies were ordered. Discussed with patient she will likely require partial versus complete amputation of right hallux. Will await arterial studies and x-ray results to determine definitive amputation level and blood flow status to ensure adequate healing potential prior to procedure as patient is medically stable at this time. Will follow-up with patient tomorrow. (2) Type 2 diabetes mellitus with diabetic polyneuropathy: QUALIFIERS: Diabetes mellitus buttermaker insulin use: with buttermaker use Qualified Code(s): E11.42 - Type 2 diabetes mellitus with diabetic polyneuropathy; Z79.4 - buttermaker continuous churn (current) use of insulin (3) Non-pressure chronic ulcer of other part of right foot with necrosis of bone: HPI Consult Data Date of Consult: 03/16/25 HPI Narrative HPI Narrative: MISAEL MEDINA, is a 74 F who presents with ESRD and new onset dialysis catheter placed. Patient was seen in PACU. Patient [place] constitutional symptoms. Patient did not realize she had a right hallux ulceration. Patient denies any pain and has no feeling to bilateral feet. Patient denies leg cramping. Patient has no other complaints. COUNTS INCLUDE 234 BEDS AT THE [facility] Medical History Congestive heart failure Hypothyroidism Osteoporosis Morbid obesity with BMI of 45.0-49.9, adult Wears glasses Post-menopausal Thyroid disease Diabetes Uses wheelchair Ambulates with cane Arthritis High cholesterol Back pain TIA (transient ischemic attack) Dietary restriction Non-smoker History of pain when walking History of transesophageal echocardiography (DESTIN) Cardiology follow-up encounter Hypertension Hypertension Diabetes Home Medications ?Medication ?Instructions ?Recorded ?Last Taken ?Type atorvastatin 10 mg tablet 10 mg PO QHS cholesterol 03/12/25 History levothyroxine 100 mcg tablet 100 mcg PO DAILY thyroid 08/31/22 03/13/25 History (Synthroid) aspirin 81 mg chewable tablet 81 mg PO DAILYCM 90 days #90 tabs 10/21/24 03/13/25 Rx carvedilol 6.25 mg tablet (Coreg) 6.25 mg PO BID #60 t abs 12/01/24 03/13/25 Rx dapagliflozin propanediol 10 mg 10 mg PO QDAY #30 tabs 03/12/25 Unknown Rx tablet (Farxiga) furosemide 40 mg tablet 40 mg PO QAM #30 tabs 03/13/25 Rx metformin 500 mg tablet 500 mg PO BID 03/12/2503/13 History Allergy/AdvReac Type Severity Reaction Status Date / Time No Known Allergies Allergy Verified 03/13/25 13:58 Family History Mother Hypertension Father Heart disease Surgical History Hx of colonoscopy Hx of cholecystectomy H/O: hysterectomy Social History household members: spouse Smoking Status: Never smoker alcohol intake: never substance use type: does not use caffeine: No ROS Constitutional Constitutional: Denies systems reviewed and no addt'l complaints, except as documented, chills or daytime sleepiness Eyes Eyes: Denies acute decrease in peripheral vision, blindness or change in vision ENT HEENT: Denies change in voice, epistaxis or facial pain Cardiovascular Cardiovascular: Denies abdominal edema, abdominal pain or chest pain at rest Respiratory/Chest Respiratory/Chest: Denies change in phlegm color, chest congestion or dyspnea Gastrointestinal Gastrointestinal: Denies belching, bloating or constipation Genitourinary Genitourinary: Denies anuria, burning urination or difficulty with ejaculations Musculoskeletal Musculoskeletal: Denies atrophy, back pain or limited range of motion Integumentary Integumentary: Denies bleeding lesions, change in hair or jaundice Physical Exam Narrative Vascular: Dorsalis pedis posterior tibial pulses palpable 2/4 bilateral lower extremities. Atrophic skin changes with thinning, shiny, taut, absent digital hair growth. Neurologic: Light touch and protective sensation absent to bilateral feet. Dermatologic: Full-thickness ulceration distal tuft of right hallux extending down to the level of distal phalanx. There is noted to be purulent drainage from the wound with periwound hyperkeratosis erythema edema and warmth. No evidence of crepitus or fluctuance when palpating the wound or periwound areas. Swelling inflammation appears limited to the right great toe. There is a partial-thickness ulceration to the dorsal aspect of the left second toe. Stable granular base no acute signs of infection. Musculoskeletal: Hallux limitus right foot contributing to wound formation, hammertoe deformity left second toe. Muscular strength for bilateral lower extremity compartments. Lab / Micro Data 03/16/25 04:04 03/16/25 04:04 Labs: Laboratory Results - last 24 hr 03/13/25 18:33: Hep Bs Antigen Nonreactive 03/15/25 10:05: Double Strand DNA Ab <1 03/15/25 15:10: Potassium 5.8 H 03/15/25 16:39: POC Glucose 149 H 03/15/25 21:36: POC Glucose 176 H 03/16/25 04:04: WBC 8.1, RBC 4.07 L, Hgb 10.4 L, Hct 35.6 L, MCV 87.5, MCH 25.6 L, MCHC 29.2 L, RDW Std Deviation 55.1 H, RDW Coeff of Leif 17.5 H, Plt Count 187, MPV 9.3, Immature Gran % (Auto) 0.400, Neut % (Auto) 74.3 H, Lymph % (Auto) 13.5 L, [place] % (Auto) 9.3, Eos % (Auto) 2.3, Baso % (Auto) 0.2, Absolute Neuts (auto) 6.0, Absolute Lymphs (auto) 1.10, Nucleated RBC % 0.7, Sodium 137, P otassium 5.6 H, Chloride 108, Carbon Dioxide 16.4 L, Anion Gap 13, BUN 96 H, C reatinine 5.96 H, Estim Creat Clear Calc 9.88 L*, Est GFR (MDRD) Non-Af 7 L, BUN/Creatinine Ratio 16.2, Glucose 138 H, Hemoglobin A1c 7.3 H, Calcium 8.2 03/16/25 06:19: POC Glucose 130 H 03/16/25 09:25: S.aureus Protein A PCR NEGATIVE, MRSA (PCR) Negative Micro: Microbiology 03/16/25 09:25 Wound - Toe Gram Stain - Final 03/14/25 18:00 Urine Catheter - Catheter Urine Culture - Preliminary Culture exhibits no growth.
[2025-03-16] MEDS: 0.9% Normal Saline 1,000 ML IV.SOLN. 1000 ML OPERA.SITE (14:05)
[2025-03-16] MEDS: PureFlow B 2K Dialysis Soln 1 BAG 6 BAG PF (14:06)
[2025-03-16] MEDS: Heparin 10,000 UNITS/10 ML Vial IV (14:07)
[2025-03-16] MEDS: 0.9% Saline Lock 10 ML Syringe IV (14:15)
--- NOTE | 2025-03-16 15:18 | PCM.RX.CS ---
Consult Antibiotic Management Pharmacy has been consulted to manage selected antibiotic: Vancomycin Type of Intervention Type of Consult: New start Suspected Infection Suspected Infection: Osteomyelitis Labs Labs: Sodium 137 mmol/L (133-145) 03/16/25 04:04 Potassium 5.6 mmol/L (3.3-5.1) H 03/16/25 04:04 Chloride 108 mmol/L (98-108) 03/16/25 04:04 Carbon Dioxide 16.4 mmol/L (21.0-32.0) L 03/16/25 04:04 Anion Gap 13 (5-15) 03/16/25 04:04 BUN 96 mg/dL (4-19) H 03/16/25 04:04 Creatinine 5.96 mg/dL (0.70-1.20) H 03/16/25 04:04 Est GFR (MDRD) Non-Af 7 (>60) L 03/16/25 04:04 BUN/Creatinine Ratio 16.2 RATIO (10-20) 03/16/25 04:04 Glucose 138 mg/dL (70-99) H 03/16/25 04:04 Microbiology Microbiology: Microbiology 03/16/25 09:25 Wound - Toe Gram Stain - Final 03/14/25 18:00 Urine Catheter - Catheter Urine Culture - Preliminary Culture exhibits no growth. Pharmacy Plan for Drug Dosing Pharmacy Plan for Drug Dosing: NEW IV VANCOMYCIN Consulting Physician: Nahun Indication: wound/possible osteomyelitis Goal Trough: 15-20 mg/dL SrCr: HD CrCl: HD Comments: HD running now, loading dose of 2000mg to be given after HD today Vancomycin Dose: loading dose to be given today. Per nurse, tentative plan to run patient tomorrow as well. If patient does get HD, will need a x1 1gm dose post-HD then a pre-HD level before following session. Pending Level: none, check HD schedule Pharmacy Service will continue to monitor and adjust dosing as required.
[2025-03-16] MEDS: Piperacil/Tazobactam 3.375 GM Q12 PREMIX IV (18:13)
[2025-03-16] MEDS: Vancomycin HCl 2,000 MG in 0.9% Normal Saline (500mL Bag) 500 ML 250 MG IV (18:14)
[2025-03-16 20:09] LABS: Bedside Glucose 111 mg/dL (74-106)
[2025-03-16 20:09] LABS: Bedside Glucose 107 mg/dL (74-106)
[2025-03-16] MEDS: Atorvastatin Calcium 10 MG Tablet PO (21:45)
[2025-03-16] MEDS: Heparin Injection (Vial) 5,000 UNIT/ML VIAL 5000 UNIT SC (21:45)
[2025-03-16 22:11] LABS: Bedside Glucose 91 mg/dL (74-106)
[2025-03-17] VITALS (15 sets, daily range): BP systolic 92–201; BP diastolic 55–85; PULSE 55–74; RESP 17–20; TEMP 36.3–37.1; O2SAT 94–98; BMI 52.2; BMI 52.7; BMI 51.7
[2025-03-17 05:17] LABS: Anion Gap 13 (5-15); BUN 71 mg/dL (4-19); Carbon Dioxide 17.4 mmol/L (21.0-32.0); Chloride 106 mmol/L (98-108); Creatinine, Serum 4.76 mg/dL (0.70-1.20); EST Glomerular Filtration Rate 9 (>60); Estimated Creatinine Clearance 12.37 ml/min (50-250); Glucose 80 mg/dL (70-99); Potassium 4.9 mmol/L (3.3-5.1); Sodium Level 136 mmol/L (133-145)
[2025-03-17] MEDS: Levothyroxine 100 MCG Tablet PO (06:37)
[2025-03-17 06:59] LABS: Bedside Glucose 77 mg/dL (74-106)
[2025-03-17] MEDS: 0.9% Normal Saline 1,000 ML IV.SOLN. 1000 ML OPERA.SITE (07:38)
[2025-03-17] MEDS: PureFlow B 2K Dialysis Soln 1 BAG 6 BAG PF (07:38)
--- NOTE | 2025-03-17 08:20 | PN.SURG_ITS ---
Subjective Subjective Patient seen and examined on rounds this morning. Patient is currently undergoing dialysis using her new tunneled dialysis catheter. This has been reportedly working very well and not having any functional issues. RN notes bruising involving the right side of her neck upper back and right upper chest which is new since dialysis catheter placement. There is also states that patient has quite a bit of bruising involving the left forearm from previous IV placement. Patient denies being on any chronic blood thinners but is on heparin during this hospitalization. Otherwise she has no complaints or problems Objective Data Objective Data Vital Signs: Vital Signs Temp Pulse Resp BP Pulse Ox O2 Del Method O2 Flow Rate 98.1 F 63 18 115/72 97 Nasal Cannula 3 03/17/25 07:00 03/17/25 07:58 03/17/25 07:58 03/17/25 07:58 03/17/25 07:00 03/17/25 08:14 03/17/25 08:14 Oxygen Flow Rate (L/min) 3 Oxygen Delivery Method Nasal Cannula Weight: 265 lb 14.04 oz Body Mass Index (BMI) 52.2 Intake & Output: Intake and Output for Last 24 Hours 03/15/25 03/16/25 03/17/25 23:59 23:59 23:59 Intake Total 490 / 490 1115 / 1115 Output Total 150 / 150 1080 / 1130 200 / 200 Balance 340 / 340 35 / -15 -200 / -200 Lab / Micro Data 03/16/25 04:04 03/17/25 04:27 Labs: Laboratory Results - last 24 hr 03/15/25 10:05: Double Strand DNA Ab <1 03/16/25 09:25: S.aureus Protein A PCR NEGATIVE, MRSA (PCR) Negative 03/16/25 14:42: POC Glucose 111 H 03/16/25 18:06: POC Glucose 107 H 03/16/25 21:42: POC Glucose 91 03/17/25 04:27: Sodium 136, Potassium 4.9, Chloride 106, Carbon Dioxide 17.4 L, Anion Gap 13, BUN 71 H, Creatinine 4.76 H, Estim Creat Clear Calc 12.37 L, Est GFR (MDRD) Non-Af 9 L, BUN/Creatinine Ratio 15.0, Glucose 80, Calcium 8.0 03/17/25 06:34: POC Glucose 77 Micro: Microbiology 03/16/25 09:25 Wound - Toe Gram Stain - Final 03/14/25 18:00 Urine Catheter - Catheter Urine Culture - Preliminary Culture exhibits no growth. Radiography Diagnostic Testing: Radiology Impression Chest X-Ray 03/16/25 12:45 IMPRESSION: 1. Placement of RIGHT IJ CVC with tip projecting over the mid to lower SVC. No visible pneumothorax. 2. Otherwise similar appearance of the chest. Reading Location: [id number] Foot X-Ray 03/16/25 12:45 IMPRESSION: Cortical bone irregularity along the medial aspect of the 1st distal phalanx (1st great toe). Narrowing of the 1st interphalangeal joint concerning for intra-articular involvement. Reading Location: [facility] Foot X-Ray 03/16/25 12:45 IMPRESSION: DEGENERATIVE OSTEOARTHROSIS. NO ACUTE FINDINGS. Reading Location: [facility] Physical Exam Narrative She is alert and oriented x 3. She is in no acute distress. Right sided tunneled dialysis catheter appears to be in place and seems to be functioning well. She does have a moderate amount of bruising involving the right side of her neck right upper back and right chest. This does not appear to be increasing per nurse. Assessment & Plan Assessment/Plan (1) Chronic renal disease, stage 3, moderately decreased glomerular filtration rate between 30-59 mL/min/1.73 square meter: QUALIFIERS: Chronic kidney disease stage 3 subtype: stage 3b (GFR 30-44) Qualified Code(s): N18.32 - Chronic kidney disease, stage 3b PLAN: Plan The patient is postoperative day #1 from a right sided tunneled dialysis catheter. This appears to be functioning well. She does have some moderate bruising in this area however she also has bruising in involving the left forearm which is unrelated to the procedure. I suspect she just bruises very easily. Do not appreciate any obvious hematoma. Will continue to watch closely. Continue to use dialysis catheter as scheduled.
--- NOTE | 2025-03-17 09:27 | PN_ITS ---
Subjective Subjective Patient resting comfortably. Denies constitutional symptoms. Understanding requirement right hallux amputation. Objective Data Objective Data Vital Signs: Vital Signs Temp Pulse Resp BP Pulse Ox O2 Del Method O2 Flow Rate 98.1 F 67 20 H 146/71 H 97 Nasal Cannula 3 03/17/25 07:00 03/17/25 08:58 03/17/25 08:58 03/17/25 08:58 03/17/25 07:00 03/17/25 08:58 03/17/25 08:58 Oxygen Flow Rate (L/min) 3 Oxygen Delivery Method Nasal Cannula Weight: 120.6 kg Body Mass Index (BMI) 52.2 Intake & Output: Intake and Output for Last 24 Hours 03/15/25 03/16/25 03/17/25 23:59 23:59 23:59 Intake Total 490 / 490 1115 / 1115 Output Total 150 / 150 1080 / 1130 200 / 200 Balance 340 / 340 35 / -15 -200 / -200 Lab / Micro Data 03/16/25 04:04 03/17/25 04:27 Labs: Laboratory Results - last 24 hr 03/15/25 10:05: Double Strand DNA Ab <1 03/16/25 09:25: S.aureus Protein A PCR NEGATIVE, MRSA (PCR) Negative 03/16/25 14:42: POC Glucose 111 H 03/16/25 18:06: POC Glucose 107 H 03/16/25 21:42: POC Glucose 91 03/17/25 04:27: Sodium 136, Potassium 4.9, Chloride 106, Carbon Dioxide 17.4 L, Anion Gap 13, BUN 71 H, Creatinine 4.76 H, Estim Creat Clear Calc 12.37 L, Est GFR (MDRD) Non-Af 9 L, BUN/Creatinine Ratio 15.0, Glucose 80, Calcium 8.0 03/17/25 06:34: POC Glucose 77 Micro: Microbiology 03/16/25 09:25 Wound - Toe Gram Stain - Final 03/14/25 18:00 Urine Catheter - Catheter Urine Culture - Preliminary Culture exhibits no growth. Radiography Diagnostic Testing: Radiology Impression Chest X-Ray 03/16/25 12:45 IMPRESSION: 1. Placement of RIGHT IJ CVC with tip projecting over the mid to lower SVC. No visible pneumothorax. 2. Otherwise similar appearance of the chest. Reading Location: [facility] Foot X-Ray 03/16/25 12:45 IMPRESSION: Cortical bone irregularity along the medial aspect of the 1st distal phalanx (1st great toe). Narrowing of the 1st interphalangeal joint concerning for intra-articular involvement. Reading Location: [facility] Foot X-Ray 03/16/25 12:45 IMPRESSION: DEGENERATIVE OSTEOARTHROSIS. NO ACUTE FINDINGS. Reading Location: [facility] Physical Exam Narrative Vascular: Dorsalis pedis posterior tibial pulses palpable 2/4 bilateral lower extremities. Atrophic skin changes with thinning, shiny, taut, absent digital hair growth. Neurologic: Light touch and protective sensation absent to bilateral feet. Dermatologic: Full-thickness ulceration distal tuft of right hallux extending down to the level of distal phalanx. There is noted to be purulent drainage from the wound with periwound hyperkeratosis erythema edema and warmth. No evidence of crepitus or fluctuance when palpating the wound or periwound areas. Swelling inflammation appears limited to the right great toe. There is a partial-thickness ulceration to the dorsal aspect of the left second toe. Stable granular base no acute signs of infection. Musculoskeletal: Hallux limitus right foot contributing to wound formation, hammertoe deformity left second toe. Muscular strength for bilateral lower extremity compartments. Assessment & Plan Assessment/Plan (1) Other acute osteomyelitis, right ankle and foot: PLAN: Exam performed. Vital signs stable. Bedside will evaluation performed. Patient will start dialysis Patient has no leukocytosis or acute systemic signs of infection. Locally patient has clinical evidence of osteomyelitis to the right distal phalanx of the hallux. Radiographs indicate osteomyelitis distal phalanx right hallux. Arterial studies demonstrate elevated ABIs bilaterally likely due to calcification in setting of chronic kidney disease Patient has palpable pedal pulses we will plan to proceed with digital amputation of the right hallux on Wednesday Continue to follow closely. (2) Type 2 diabetes mellitus with diabetic polyneuropathy: QUALIFIERS: Diabetes mellitus senior care insulin use: with predatory animal exterminator use Qualified Code(s): E11.42 - Type 2 diabetes mellitus with diabetic polyneuropathy; Z79.4 - skilled nursing (current) use of insulin (3) Non-pressure chronic ulcer of other part of right foot with necrosis of bone:
[2025-03-17] MEDS: Heparin 10,000 UNITS/10 ML Vial IV (10:21)
[2025-03-17] MEDS: 0.9% Saline Lock 10 ML Syringe IV ×2 (10:21→11:12)
--- NOTE | 2025-03-17 10:44 | PCM.PN.HOSP ---
Reason for Visit Reason for Visit: Diagnoses Type 2 diabetes mellitus with diabetic polyneuropathy (03/13/25) Hyperkalemia (03/13/25) Essential (primary) hypertension (03/13/25) Pulmonary hypertension, unspecified (03/13/25) Nonrheumatic aortic (valve) stenosis (03/13/25) Acute on chronic systolic (congestive) heart failure (03/13/25) Non-pressure chronic ulcer of other part of right foot with necrosis of bone (03/13/25) Other acute osteomyelitis, right ankle and foot (03/13/25) Acute kidney failure, unspecified (03/13/25) Chronic kidney disease, stage 3b (03/13/25) Chronic kidney disease, unspecified (03/13/25) 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 Patient appeared similar today to previous days. She was having hemodialysis done when I saw her and was tolerating this without issue. Denied any new pain or discomfort. No other new concerns today. Objective Data Objective Data Vital Signs: Vital Signs Temp Pulse Resp BP Pulse Ox O2 Del Method O2 Flow Rate 97.7 F L 68 18 126/71 H 98 Nasal Cannula 3 03/17/25 10:40 03/17/25 10:40 03/17/25 10:40 03/17/25 10:40 03/17/25 10:40 03/17/25 10:40 03/17/25 10:40 Oxygen Flow Rate (L/min) 3 Oxygen Delivery Method Nasal Cannula Weight: 119.5 kg Body Mass Index (BMI) 51.7 Intake & Output: Intake and Output for Last 24 Hours 03/15/25 03/16/25 03/17/25 23:59 23:59 23:59 Intake Total 490 / 490 1115 / 1115 Output Total 150 / 150 1080 / 1130 1200 / 1200 Balance 340 / 340 35 / -15 -1200 / -1200 Lab / Micro Data 03/16/25 04:04 03/17/25 04:27 Labs: Laboratory Results - last 24 hr 03/15/25 10:05: Double Strand DNA Ab <1 03/16/25 09:25: S.aureus Protein A PCR NEGATIVE, MRSA (PCR) Negative 03/16/25 14:42: POC Glucose 111 H 03/16/25 18:06: POC Glucose 107 H 03/16/25 21:42: POC Glucose 91 03/17/25 04:27: Sodium 136, Potassium 4.9, Chloride 106, Carbon Dioxide 17.4 L, Anion Gap 13, BUN 71 H, Creatinine 4.76 H, Estim Creat Clear Calc 12.37 L, Est GFR (MDRD) Non-Af 9 L, BUN/Creatinine Ratio 15.0, Glucose 80, Calcium 8.0 03/17/25 06:34: POC Glucose 77 Micro: Microbiology 03/16/25 09:25 Wound - Toe Gram Stain - Final 03/14/25 18:00 Urine Catheter - Catheter Urine Culture - Preliminary Culture exhibits no growth. Radiography Diagnostic Testing: Radiology Impression Chest X-Ray 03/16/25 12:45 IMPRESSION: 1. Placement of RIGHT IJ CVC with tip projecting over the mid to lower SVC. No visible pneumothorax. 2. Otherwise similar appearance of the chest. Reading Location: [facility] Foot X-Ray 03/16/25 12:45 IMPRESSION: Cortical bone irregularity along the medial aspect of the 1st distal phalanx (1st great toe). Narrowing of the 1st interphalangeal joint concerning for intra-articular involvement. Reading Location: [facility] Foot X-Ray 03/16/25 12:45 IMPRESSION: DEGENERATIVE OSTEOARTHROSIS. NO ACUTE FINDINGS. Reading Location: [facility] Physical Exam Const alert and no apparent distress Constitutional Narrative: Elderly female, class III obesity, mildly fatigued appearing, alert and oriented to person and place but not time and some confusion with answering questions, otherwise sitting back comfortably in bed and in no acute distress. Stable. General Appearance: cooperative and comfortable HEENT normocephalic, head/scalp atraumatic, hearing grossly normal bilaterally, nasal mucous membranes and turbinates normal and moist oral mucous membranes Eyes PERRL, EOMs intact bilaterally and conjunctivae normal Neck full ROM Chest inspection of chest normal Chest Narrative: Right-sided tunneled HD catheter in place. Dried blood noted below bandage and some bruising noted in upper chest to right side of neck. Resp normal respiratory effort and no use of accessory muscles Resp Narrative: Breathing comfortably on 2 L nasal cannula at rest. Decreased breath sounds in bilateral lung bases with mild crackles noted, no wheezing noted. Stable. Cardio regular rate, regular rhythm, no murmurs and peripheral pulses 2+ throughout GI normal to inspection, nondistended, normoactive bowel sounds, soft to palpation, non-tender and non-distended Back/Spine normal ROM Extremity Extremity Narrative: +2-3 lower extremity pitting edema noted. Stable. Toe wounds with black eschar noted consistent with dry gangrene. Skin no rashes or lesions noted Neuro moves all extremities and no focal motor deficits Assessment & Plan Assessment/Plan (1) Acute on chronic renal failure: (2) Hyperkalemia: (3) Right hallux osteomyelitis: PLAN: Plan Patient is a 74-year-old female who presented to [facility] ED on 03/13/2025 with fatigue and abnormal labs. 1. Severe JOSUE on CKD stage IIIb with hyperkalemia and metabolic acidosis ? Nephrology following. Creatinine 5.10, BUN 88, potassium 6.7 on admit. Baseline creatinine 1.6-1.7. Potassium worsened to 7.4 on morning of 03/14; no EKG changes noted and treated with calcium/insulin/dextrose/Kayexalate/sodium bicarbonate push with repeat potassium 6.3. Unclear etiology for JOSUE at this time. Renal ultrasound benign. Appears volume overloaded on exam but urine sodium low. Given 1 dose of IV Lasix with very minimal urine output. Repeat BMPs on 03/15 and 03/16 without improvement. Tunneled HD catheter placed and HD initiated on 03/16. Will plan for 3 HD sessions through 03/18 likely followed by HD on 3 days per week schedule moving forward. Per nephrology, will consider kidney biopsy in the future for further evaluation but toe osteomyelitis needs to be addressed first. Continue to monitor daily labs. 2. Acute on chronic HFrEF with hypoxia, hypertension, hyperlipidemia ? Cardiology following. Initially diagnosed with HFrEF with EF 40 to 45% in October. Was started on Coreg and lisinopril then but unfortunately repeat echo on 12/12 showed EF of 30% with moderate to severe global LV hypokinesis. Saw cardiology in the office on 03/12 and noted to have 17 pound weight gain. Labs drawn on 03/12 with findings as above as well as BNP greater than 70,000. Initiated on dialysis as noted above. Appreciate cardiology and nephrology recommendations going forward. Okay to continue home aspirin, statin and Coreg. 3. Right great toe osteomyelitis ? Podiatry and wound care following. Noted to have dry gangrene on foot on 03/15. Wound care was able to probe down to bone. Per podiatry, patient with no systemic signs of infection but does have clinical evidence of osteomyelitis to the right great toe. X-ray results confirm this and arterial study results with adequate blood flow to the digit. Planning for right great toe amputation on Monday 03/19. Will treat with broad-spectrum antibiotics until then. Podiatry suspects that after amputation the source of infection will be cleared and there will be no further need for antibiotics. 4. Acute on chronic debility ? PT/OT/case management following. Patient with fairly poor therapy scores and now with right great toe osteomyelitis with need for amputation as noted above. Presumed that patient will need SNF placement on discharge. 5. Concern for UTI ? UA with 500 leukocyte esterase, negative nitrates, 4+ bacteria, 50-100 WBCs. Urine culture with no growth. Was initially on IV ceftriaxone, now on broad-spectrum antibiotics as above. Will complete 5-day course of antibiotics while inpatient. 6. Elevated troponin ? Cardiology following as above. Troponin trend 159 > 159 > 160 on admit. No new ischemic EKG changes noted. No chest pain noted. Suspected demand ischemia secondary to HFrEF and JOSUE as noted above, no further cardiac workup needed. Chronic medical conditions: ? Class III obesity: BMI 50 on admit. Complicates hospital course, care and prognosis. ? Type 2 diabetes mellitus: Hold home metformin and dapagliflozin. Treating with sliding scale insulin with meals for now, adjust as needed. ? Hypothyroidism: Continue home Synthroid. DVT prophylaxis: Heparin subcu CODE STATUS: Full code, verified Expected disposition: Likely SNF, TBD Total clinical time spent by myself addressing the patient's medical issues, reviewing all the data, and collaborating with patient's care team: 35 minutes. Charges/Coding Visit Charges Inpatient E&M: 93937 Subs Hosp L2
[2025-03-17 11:07] LABS: Bedside Glucose 104 mg/dL (74-106)
[2025-03-17] MEDS: Heparin Injection (Vial) 5,000 UNIT/ML VIAL 5000 UNIT SC ×2 (11:10→20:59)
[2025-03-17] MEDS: Aspirin 81 MG TAB.CHEW PO (11:11)
[2025-03-17] MEDS: Insulin Lispro 100 UNIT/ML INSULN.PEN SC ×3 (11:11→20:58)
[2025-03-17] MEDS: Carvedilol 6.25 MG Tablet PO ×2 (11:11→17:00)
[2025-03-17] MEDS: Piperacil/Tazobactam 3.375 GM Q12 PREMIX IV ×2 (11:27→21:07)
--- NOTE | 2025-03-17 11:51 | NURSING ---
Meds given late due to dialysis
[2025-03-17 16:49] LABS: Bedside Glucose 167 mg/dL (74-106)
--- NOTE | 2025-03-17 17:57 | PCM.PN.REN ---
Subjective Subjective Follow-up on acute kidney injury, requiring dialysis. Has been dialyzed today, 1000 cc of fluid has been removed. Tolerated well Objective Data Objective Data Vital Signs: Vital Signs Temp Pulse Resp BP Pulse Ox O2 Del Method O2 Flow Rate 97.3 F L 74 20 H 136/68 H 97 Nasal Cannula 2 03/17/25 16:56 03/17/25 16:56 03/17/25 16:56 03/17/25 16:56 03/17/25 16:56 03/17/25 16:56 03/17/25 16:56 Oxygen Flow Rate (L/min) 2 Oxygen Delivery Method Nasal Cannula Weight: 119.5 kg Body Mass Index (BMI) 51.7 Intake & Output: Intake and Output for Last 24 Hours 03/15/25 03/16/25 03/17/25 23:59 23:59 23:59 Intake Total 490 / 490 1115 / 1115 50 / 50 Output Total 150 / 150 1080 / 1130 1200 / 1200 Balance 340 / 340 35 / -15 -1150 / -1150 Lab / Micro Data Attestation: I reviewed the patient's lab results. 03/16/25 04:04 03/17/25 04:27 Labs: Laboratory Results - last 24 hr 03/16/25 14:42: POC Glucose 111 H 03/16/25 18:06: POC Glucose 107 H 03/16/25 21:42: POC Glucose 91 03/17/25 04:27: Sodium 136, Potassium 4.9, Chloride 106, Carbon Dioxide 17.4 L, Anion Gap 13, BUN 71 H, Creatinine 4.76 H, Estim Creat Clear Calc 12.37 L, Est GFR (MDRD) Non-Af 9 L, BUN/Creatinine Ratio 15.0, Glucose 80, Calcium 8.0 03/17/25 06:34: POC Glucose 77 03/17/25 08:07: POC Glucose 104 03/17/25 16:18: POC Glucose 167 H Micro: Microbiology 03/14/25 18:00 Urine Catheter - Catheter Urine Culture - Final Culture exhibits no growth. 03/16/25 09:25 Wound - Toe Gram Stain - Final Physical Exam Narrative Has anasarca Const alert, oriented x3 and no apparent distress Nutritional Appearance: morbidly obese HEENT normocephalic Head and Scalp: atraumatic Neck no lymphadenopathy Resp no use of accessory muscles Auscultation: diminished lung sounds Cardio no murmurs GI non-tender and non-distended Auscultation: normoactive bowel sounds Assessment & Plan Assessment/Plan (1) Acute on chronic renal failure: QUALIFIERS: Acute renal failure type: unspecified Chronic kidney disease stage: stage 3 (moderate) Chronic kidney disease stage 3 subtype: stage 3a (GFR 45-59) Qualified Code(s): N17.9 - Acute kidney failure, unspecified; N18.31 - Chronic kidney disease, stage 3a PLAN: Acute kidney injury with low fractional excretion of sodium. Serologies are pending. Started on dialysis due to lack of urine output and the rising creatinine. Today had a second treatment and tolerated well with 1000 cc fluid removal. Will await serologies, consider doing kidney biopsy early next week. As she has a little bit of urine output I will give her Lasix trial
[2025-03-17 18:17] LABS: Bedside Glucose 155 mg/dL (74-106)
[2025-03-17 20:23] LABS: Bedside Glucose 185 mg/dL (74-106)
[2025-03-17] MEDS: Atorvastatin Calcium 10 MG Tablet PO (21:00)
[2025-03-17] MEDS: Nystatin Powder 15gm Bottle 1 APPLIC TOPICAL (21:00)
[2025-03-17] MEDS: Furosemide 40 MG/4 ML Vial IV (21:07)
--- NOTE | 2025-03-17 21:25 | PCM.RX.CS ---
Consult Antibiotic Management Pharmacy has been consulted to manage selected antibiotic: Vancomycin Type of Intervention Type of Consult: Follow-up Labs Labs: Sodium 136 mmol/L (133-145) 03/17/25 04:27 Potassium 4.9 mmol/L (3.3-5.1) 03/17/25 04:27 Chloride 106 mmol/L (98-108) 03/17/25 04:27 Carbon Dioxide 17.4 mmol/L (21.0-32.0) L 03/17/25 04:27 Anion Gap 13 (5-15) 03/17/25 04:27 BUN 71 mg/dL (4-19) H 03/17/25 04:27 Creatinine 4.76 mg/dL (0.70-1.20) H 03/17/25 04:27 Est GFR (MDRD) Non-Af 9 (>60) L 03/17/25 04:27 BUN/Creatinine Ratio 15.0 RATIO (10-20) 03/17/25 04:27 Glucose 80 mg/dL (70-99) 03/17/25 04:27 Microbiology Microbiology: Microbiology 03/14/25 18:00 Urine Catheter - Catheter Urine Culture - Final Culture exhibits no growth. 03/16/25 09:25 Wound - Toe Gram Stain - Final Goal Trough Goal Trough: 15-20 mcg/mL Pharmacy Plan for Drug Dosing Pharmacy Plan for Drug Dosing: DAILY ASSESSMENT Current Vancomycin Dose: Dosing per HD Number of Doses Received: Loading dose of 2G IV X1 03/16/25 Current Renal Function: ON HD- Schedule not determined at this time. Following daily for HD treatments Renal Function Trend: n/a Lab/Micro: WCx growing GPC Any Change in Vanc Plan: Patient had HD today per nephrology. Will give 1g IV x1 post-HD treatment. Nephrology note did not state a HD schedule, awaiting results of tests, etc. before determining schedule. Will follow daily to determine HD schedule. Patient will be due for a trough before the next HD session (TBD) Pending Level: None scheduled at this time, will continue to follow daily Pharmacy Service will continue to monitor and adjust dosing as required.
[2025-03-17] MEDS: Vancomycin IV 1,000 MG/200 ML BAG 200 MG IV (23:24)
[2025-03-17] MEDS: 0.9% Normal Saline (100mL Bag) 100 ML 15 ML IV (23:25)
[2025-03-18] VITALS (11 sets, daily range): BP systolic 102–133; BP diastolic 52–80; PULSE 52–67; RESP 18–20; TEMP 36–36.9; O2SAT 95–100; BMI 51.6; BMI 53.2
[2025-03-18] MEDS: Acetaminophen 325 MG Tablet 650 MG PO (02:12)
[2025-03-18] MEDS: Levothyroxine 100 MCG Tablet PO (04:19)
[2025-03-18] MEDS: 0.9% Saline Lock 10 ML Syringe IV ×5 (05:12→21:08)
[2025-03-18] MEDS: Furosemide 40 MG/4 ML Vial IV ×3 (05:12→21:08)
[2025-03-18 05:55] LABS: Hematocrit 35.8 % (37-47); Hemoglobin 10.7 g/dL (12.0-15.0); Mean Corp Hgb Conc 29.9 g/dL (32-36); Mean Corpuscular Hgb 26.2 pg (27.0-32.0); Mean Corpuscular Volume 87.7 fL (81-99); Mean Platelet Vol. 8.9 fl (6.2-12.0); Platelet Count 157 K/mm3 (150-450); RBC Distribution Width CV 17.2 % (11.6-14.6); RBC Distribution Width SD 54.8 fl (35.1-43.9); Red Blood Count 4.08 M/mm3 (4.2-5.4)
[2025-03-18 06:20] LABS: Anion Gap 11 (5-15); BUN 57 mg/dL (4-19); BUN/Creat Ratio 13.8 RATIO (10-20); Calcium,Total 7.8 mg/dL (7.6-11.0); Carbon Dioxide 17.9 mmol/L (21.0-32.0); Chloride 106 mmol/L (98-108); Creatinine, Serum 4.09 mg/dL (0.70-1.20); EST Glomerular Filtration Rate 11 (>60); Estimated Creatinine Clearance 14.29 ml/min (50-250); Glucose 139 mg/dL (70-99); Potassium 4.7 mmol/L (3.3-5.1); Sodium Level 135 mmol/L (133-145)
[2025-03-18 07:00] LABS: Bedside Glucose 130 mg/dL (74-106)
[2025-03-18] MEDS: Carvedilol 6.25 MG Tablet PO (08:35)
[2025-03-18] MEDS: Aspirin 81 MG TAB.CHEW PO (08:36)
[2025-03-18] MEDS: Piperacil/Tazobactam 3.375 GM Q12 PREMIX IV (09:31)
[2025-03-18] MEDS: Heparin Injection (Vial) 5,000 UNIT/ML VIAL 5000 UNIT SC ×2 (09:32→21:08)
[2025-03-18] MEDS: Nystatin Powder 15gm Bottle 1 APPLIC TOPICAL ×2 (09:33→21:08)
--- NOTE | 2025-03-18 09:35 | PCM.PN.HOSP ---
Reason for Visit Reason for Visit: Diagnoses Type 2 diabetes mellitus with diabetic polyneuropathy (03/13/25) Hyperkalemia (03/13/25) Essential (primary) hypertension (03/13/25) Pulmonary hypertension, unspecified (03/13/25) Nonrheumatic aortic (valve) stenosis (03/13/25) Acute on chronic systolic (congestive) heart failure (03/13/25) Non-pressure chronic ulcer of other part of right foot with necrosis of bone (03/13/25) Other acute osteomyelitis, right ankle and foot (03/13/25) Osteomyelitis, unspecified (03/13/25) Acute kidney failure, unspecified (03/13/25) Chronic kidney disease, stage 3a (03/13/25) Chronic kidney disease, stage 3b (03/13/25) Chronic kidney disease, unspecified (03/13/25) 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 Patient appeared similar today to previous days. Was sitting back comfortably in bedside chair and appeared somewhat lethargic but was otherwise answering questions with short appropriate responses. Denied any new concerns this morning. Objective Data Objective Data Vital Signs: Vital Signs Temp Pulse Resp BP Pulse Ox O2 Del Method O2 Flow Rate 97 F L 60 18 130/80 H 96 Nasal Cannula 2 03/18/25 07:59 03/18/25 07:59 03/18/25 07:59 03/18/25 07:59 03/18/25 07:59 03/18/25 08:06 03/18/25 08:06 Oxygen Flow Rate (L/min) 2 Oxygen Delivery Method Nasal Cannula Weight: 119.3 kg Body Mass Index (BMI) 51.6 Intake & Output: Intake and Output for Last 24 Hours 03/16/25 03/17/25 03/18/25 23:59 23:59 23:59 Intake Total 1115 / 1115 650 / 650 250 / 250 Output Total 1080 / 1130 1300 / 1300 50 / 50 Balance 35 / -15 -650 / -650 200 / 200 Lab / Micro Data 03/18/25 05:26 03/18/25 05:26 Labs: Laboratory Results - last 24 hr 03/17/25 08:07: POC Glucose 104 03/17/25 11:06: POC Glucose 155 H 03/17/25 16:18: POC Glucose 167 H 03/17/25 20:02: POC Glucose 185 H 03/18/25 05:26: WBC 8.0, RBC 4.08 L, Hgb 10.7 L, Hct 35.8 L, MCV 87.7, MCH 26.2 L, MCHC 29.9 L, RDW Std Deviation 54.8 H, RDW Coeff of Leif 17.2 H, Plt Count 157, MPV 8.9, Sodium 135, Potassium 4.7, Chloride 106, Carbon Dioxide 17.9 L, Anion Gap 11, BUN 57 H, Creatinine 4.09 H, Estim Creat Clear Calc 14.29 L, Est GFR (MDRD) Non-Af 11 L, BUN/Creatinine Ratio 13.8, Glucose 139 H, Calcium 7.8 03/18/25 06:35: POC Glucose 130 H Micro: Microbiology 03/14/25 18:00 Urine Catheter - Catheter Urine Culture - Final Culture exhibits no growth. 03/16/25 09:25 Wound - Toe Gram Stain - Final Physical Exam Const alert, oriented x3 and no apparent distress Constitutional Narrative: Elderly female, class III obesity, mildly fatigued and lethargic appearing, A and O x 3 but only answering questions with short responses, otherwise sitting back comfortably in bedside chair and in no acute distress. General Appearance: cooperative and comfortable HEENT normocephalic, head/scalp atraumatic, hearing grossly normal bilaterally, nasal mucous membranes and turbinates normal and moist oral mucous membranes Eyes PERRL, EOMs intact bilaterally and conjunctivae normal Neck full ROM Chest inspection of chest normal Chest Narrative: Right-sided tunneled HD catheter in place, site appears clean and dry. Bruising noted in upper chest to right side of neck is improving. Resp normal respiratory effort and no use of accessory muscles Resp Narrative: Breathing comfortably on 2 L nasal cannula at rest. Decreased breath sounds in bilateral lung bases with mild crackles noted, no wheezing noted. Stable. Cardio regular rate, regular rhythm, no murmurs and peripheral pulses 2+ throughout GI normal to inspection, nondistended, normoactive bowel sounds, soft to palpation, non-tender and non-distended Back/Spine normal ROM Extremity Extremity Narrative: +1-2 lower extremity pitting edema noted, improving. Toe wounds with black eschar noted consistent with dry gangrene now with dressing in place. Skin no rashes or lesions noted Neuro moves all extremities and no focal motor deficits Assessment & Plan Assessment/Plan (1) Acute on chronic renal failure: QUALIFIERS: Acute renal failure type: unspecified Chronic kidney disease stage: stage 3 (moderate) Chronic kidney disease stage 3 subtype: stage 3a (GFR 45-59) Qualified Code(s): N17.9 - Acute kidney failure, unspecified; N18.31 - Chronic kidney disease, stage 3a (2) Hyperkalemia: (3) Right hallux osteomyelitis: PLAN: Plan Patient is a 74-year-old female who presented to [facility] ED on 03/13/2025 with fatigue and abnormal labs. 1. Severe JOSUE on CKD stage IIIb with hyperkalemia and metabolic acidosis ? Nephrology following. Creatinine 5.10, BUN 88, potassium 6.7 on admit. Baseline creatinine 1.6-1.7. Potassium worsened to 7.4 on morning of 03/14; no EKG changes noted and treated with calcium/insulin/dextrose/Kayexalate/sodium bicarbonate push with repeat potassium 6.3. Unclear etiology for JOSUE at this time. Renal ultrasound benign. Appears volume overloaded on exam but urine sodium low. Given 1 dose of IV Lasix with very minimal urine output. Repeat BMPs on 03/15 and 03/16 without improvement. Tunneled HD catheter placed and HD initiated on 03/16. Will plan for 3 HD sessions through 03/18 likely followed by HD on 3 days per week schedule moving forward. Per nephrology, will consider kidney biopsy in the future for further evaluation but toe osteomyelitis needs to be addressed first. Continue to monitor daily labs. 2. Acute on chronic HFrEF with hypoxia, hypertension, hyperlipidemia ? Cardiology following. Initially diagnosed with HFrEF with EF 40 to 45% in October. Was started on Coreg and lisinopril then but unfortunately repeat echo on 12/12 showed EF of 30% with moderate to severe global LV hypokinesis. Saw cardiology in the office on 03/12 and noted to have 17 pound weight gain. Labs drawn on 03/12 with findings as above as well as BNP greater than 70,000. Initiated on dialysis as noted above. Appreciate cardiology and nephrology recommendations going forward. Okay to continue home aspirin, statin and Coreg. 3. Right great toe osteomyelitis ? Podiatry and wound care following. Noted to have dry gangrene on foot on 03/15. Wound care was able to probe down to bone. Per podiatry, patient with no systemic signs of infection but does have clinical evidence of osteomyelitis to the right great toe. X-ray results confirm this and arterial study results with adequate blood flow to the digit. Planning for right great toe amputation on Monday 03/19, n.p.o. at midnight. Will treat with broad-spectrum antibiotics until then. Podiatry suspects that after amputation the source of infection will be cleared and there will be no further need for antibiotics. 4. Acute on chronic debility ? PT/OT/case management following. Patient with fairly poor therapy scores and now with right great toe osteomyelitis with need for amputation as noted above. Presumed that patient will need SNF placement on discharge. 5. Concern for UTI ? UA with 500 leukocyte esterase, negative nitrates, 4+ bacteria, 50-100 WBCs. Urine culture with no growth. Was initially on IV ceftriaxone, now on broad-spectrum antibiotics as above. Will complete 5-day course of antibiotics while inpatient. 6. Elevated troponin ? Cardiology following as above. Troponin trend 159 > 159 > 160 on admit. No new ischemic EKG changes noted. No chest pain noted. Suspected demand ischemia secondary to HFrEF and JOSUE as noted above, no further cardiac workup needed. Chronic medical conditions: ? Class III obesity: BMI 50 on admit. Complicates hospital course, care and prognosis. ? Type 2 diabetes mellitus: Hold home metformin and dapagliflozin. Treating with sliding scale insulin with meals for now, adjust as needed. ? Hypothyroidism: Continue home Synthroid. DVT prophylaxis: Heparin subcu CODE STATUS: Full code, verified Expected disposition: Likely SNF, TBD Total clinical time spent by myself addressing the patient's medical issues, reviewing all the data, and collaborating with patient's care team: 35 minutes. Charges/Coding Visit Charges Inpatient E&M: 25333 Subs Hosp L2
[2025-03-18 12:06] LABS: Bedside Glucose 117 mg/dL (74-106)
[2025-03-18 16:36] LABS: Bedside Glucose 136 mg/dL (74-106)
--- NOTE | 2025-03-18 18:43 | PCM.PN.REN ---
Subjective Subjective no new complaints. breathing is ok. Objective Data Objective Data Vital Signs: Vital Signs Temp Pulse Resp BP Pulse Ox O2 Del Method O2 Flow Rate 98.4 F 52 L 20 H 113/62 99 Nasal Cannula 2 03/18/25 16:45 03/18/25 16:45 03/18/25 16:45 03/18/25 16:45 03/18/25 16:45 03/18/25 16:45 03/18/25 16:45 Oxygen Flow Rate (L/min) 2 Oxygen Delivery Method Nasal Cannula Weight: 123 kg Body Mass Index (BMI) 53.2 Intake & Output: Intake and Output for Last 24 Hours 03/16/25 03/17/25 03/18/25 23:59 23:59 23:59 Intake Total 1115 / 1115 650 / 650 540 / 540 Output Total 1080 / 1130 1300 / 1300 170 / 170 Balance 35 / -15 -650 / -650 370 / 370 Lab / Micro Data 03/18/25 05:26 03/18/25 05:26 Labs: Laboratory Results - last 24 hr 03/17/25 20:02: POC Glucose 185 H 03/18/25 05:26: WBC 8.0, RBC 4.08 L, Hgb 10.7 L, Hct 35.8 L, MCV 87.7, MCH 26.2 L, MCHC 29.9 L, RDW Std Deviation 54.8 H, RDW Coeff of Leif 17.2 H, Plt Count 157, MPV 8.9, Sodium 135, Potassium 4.7, Chloride 106, Carbon Dioxide 17.9 L, Anion Gap 11, BUN 57 H, Creatinine 4.09 H, Estim Creat Clear Calc 14.29 L, Est GFR (MDRD) Non-Af 11 L, BUN/Creatinine Ratio 13.8, Glucose 139 H, Calcium 7.8 03/18/25 06:35: POC Glucose 130 H 03/18/25 11:30: POC Glucose 117 H 03/18/25 16:10: POC Glucose 136 H Micro: Microbiology 03/16/25 09:25 Wound - Toe Gram Stain - Final 03/16/25 09:25 Wound - Toe Wound Culture - Preliminary Gram Positive Cocci Gram Positive Cocci#2 Gram positive ana laura 03/14/25 18:00 Urine Catheter - Catheter Urine Culture - Final Culture exhibits no growth. Physical Exam Narrative Has anasarca Const alert, oriented x3 and no apparent distress Nutritional Appearance: morbidly obese HEENT normocephalic Neck no lymphadenopathy Resp no use of accessory muscles Auscultation: diminished lung sounds Cardio no murmurs GI non-tender and non-distended Auscultation: normoactive bowel sounds Assessment & Plan Assessment/Plan (1) Acute on chronic renal failure: QUALIFIERS: Acute renal failure type: unspecified Chronic kidney disease stage: stage 3 (moderate) Chronic kidney disease stage 3 subtype: stage 3a (GFR 45-59) Qualified Code(s): N17.9 - Acute kidney failure, unspecified; N18.31 - Chronic kidney disease, stage 3a PLAN: Acute kidney injury with low fractional excretion of sodium. Serologies are pending. Started on dialysis due to lack of urine output and the rising creatinine. second treatment 03/17/25. will plan for HD again 03/19/25 Needs renal biopsy. unexplained renal failure she is agreeable. order placed
[2025-03-18] MEDS: Piperacil/Tazobactam 3.375 GM in 0.9% Normal Saline (50mL MB+) 50 ML IV (21:08)
[2025-03-18] MEDS: Atorvastatin Calcium 10 MG Tablet PO (21:08)
[2025-03-18 21:33] LABS: Bedside Glucose 130 mg/dL (74-106)
[2025-03-19] VITALS (21 sets, daily range): BP systolic 94–191; BP diastolic 45–94; PULSE 62–78; RESP 12–22; TEMP 36–37; O2SAT 93–100; BMI 53.1; BMI 53.2
[2025-03-19] MEDS: 0.9% Saline Lock 10 ML Syringe IV (06:21)
[2025-03-19] MEDS: Furosemide 40 MG/4 ML Vial IV ×3 (06:21→22:03)
[2025-03-19 06:47] LABS: Bedside Glucose 99 mg/dL (74-106)
[2025-03-19 07:05] LABS: Hematocrit 36.5 % (37-47); Hemoglobin 10.4 g/dL (12.0-15.0); Mean Corp Hgb Conc 28.5 g/dL (32-36); Mean Corpuscular Hgb 26.1 pg (27.0-32.0); Mean Corpuscular Volume 91.7 fL (81-99); Mean Platelet Vol. 10.7 fl (6.2-12.0); POSITIVE COUNT YES; Platelet Count 82 K/mm3 (150-450); RBC Distribution Width CV 17.5 % (11.6-14.6); RBC Distribution Width SD 58.4 fl (35.1-43.9); Red Blood Count 3.98 M/mm3 (4.2-5.4); Scan Indicated on CBC? Y/N YES- FLAGS NOTED; White Blood Count 7.4 K/mm3 (4.4-11.0)
[2025-03-19] MEDS: PureFlow B 2K Dialysis Soln 1 BAG 6 BAG PF (08:04)
[2025-03-19] MEDS: 0.9% Normal Saline 1,000 ML IV.SOLN. 1000 ML OPERA.SITE (08:04)
[2025-03-19] MEDS: Heparin 10,000 UNITS/10 ML Vial IV (08:05)
--- NOTE | 2025-03-19 08:40 | PCM.PN.HOSP ---
Reason for Visit Reason for Visit: Diagnoses Type 2 diabetes mellitus with diabetic polyneuropathy (03/13/25) Hyperkalemia (03/13/25) Essential (primary) hypertension (03/13/25) Pulmonary hypertension, unspecified (03/13/25) Nonrheumatic aortic (valve) stenosis (03/13/25) Acute on chronic systolic (congestive) heart failure (03/13/25) Non-pressure chronic ulcer of other part of right foot with necrosis of bone (03/13/25) Other acute osteomyelitis, right ankle and foot (03/13/25) Osteomyelitis, unspecified (03/13/25) Acute kidney failure, unspecified (03/13/25) Chronic kidney disease, stage 3a (03/13/25) Chronic kidney disease, stage 3b (03/13/25) Chronic kidney disease, unspecified (03/13/25) longterm (current) use of insulin (03/13/25) Subjective Subjective Groggy postop. Objective Data Objective Data Vital Signs: Vital Signs Temp Pulse Resp BP Pulse Ox O2 Del Method O2 Flow Rate 36.1 C L 66 20 H 110/94 H 100 Nasal Cannula 2 03/19/25 07:55 03/19/25 08:30 03/19/25 08:30 03/19/25 08:30 03/19/25 08:30 03/19/25 08:30 03/19/25 08:30 Oxygen Flow Rate (L/min) 2 Oxygen Delivery Method Nasal Cannula Weight: 123 kg Body Mass Index (BMI) 53.2 Intake & Output: Intake and Output for Last 24 Hours 03/17/25 03/18/25 03/19/25 23:59 23:59 23:59 Intake Total 650 / 650 640 / 700 110 / 110 Output Total 1300 / 1300 170 / 270 500 / 500 Balance -650 / -650 470 / 430 -390 / -390 Lab / Micro Data 03/19/25 06:25 03/19/25 06:25 Labs: Laboratory Results - last 24 hr 03/18/25 11:30: POC Glucose 117 H 03/18/25 16:10: POC Glucose 136 H 03/18/25 21:09: POC Glucose 130 H 03/19/25 06:22: POC Glucose 99 03/19/25 06:25: WBC 7.4, RBC 3.98 L, Hgb 10.4 L, Hct 36.5 L, MCV 91.7, MCH 26.1 L, MCHC 28.5 L, RDW Std Deviation 58.4 H, RDW Coeff of Leif 17.5 H, Plt Count 82 L, MPV 10.7, Differential Comment Micro: Microbiology 03/16/25 09:25 Wound - Toe Gram Stain - Final 03/16/25 09:25 Wound - Toe Wound Culture - Preliminary Enterococcus casseliflavus (D) Enterococcus avium Gram positive clinton 03/14/25 18:00 Urine Catheter - Catheter Urine Culture - Final Culture exhibits no growth. Physical Exam Const no apparent distress Constitutional Narrative: Somnolent. Opens eyes to voice and then quickly closes them. HEENT head/scalp atraumatic and moist oral mucous membranes Resp normal respiratory effort, no retractions, no use of accessory muscles and clear to auscultation bilaterally Cardio regular rate, regular rhythm, S1 normal heart sound and S2 normal heart sound GI normal to inspection, nondistended, normoactive bowel sounds, soft to palpation, non-tender and non-distended Extremity Extremity Narrative: Right foot wrapped, did not remove. Skin Skin Narrative: Bruising on anterior chest bilaterally up near the clavicles. Tunneled dialysis catheter in the right upper chest Assessment & Plan Assessment/Plan (1) Acute on chronic renal failure: QUALIFIERS: Acute renal failure type: unspecified Chronic kidney disease stage: stage 3 (moderate) Chronic kidney disease stage 3 subtype: stage 3a (GFR 45-59) Qualified Code(s): N17.9 - Acute kidney failure, unspecified; N18.31 - Chronic kidney disease, stage 3a PLAN: Tunneled dialysis cath placed 03/16. Now on HD nephrology following. will need Biopsy at at some point (2) Congestive heart failure: QUALIFIERS: Heart failure chronicity: acute on chronic Heart failure type: systolic Qualified Code(s): I50.23 - Acute on chronic systolic (congestive) heart failure PLAN: acute HFrEF. EF 30% from echo on 12/12 Further fluid removal via dialysis. (3) Right hallux osteomyelitis: PLAN: present on arrival. Patient underwent amputation on March 19. podiatry following on pip/tazo and vancomycin Wound culture from the second showed Enterococcus The Flava's and Enterococcus Avium As Well As a Gram-Positive Clinton. Wound Cultures from March 19 Currently Pending. PLAN: Plan Chronic conditions: DM2: SSI. hypothyroidism: levothyroxine obesity class III: complicates care and recovery. VTE prophylaxis: SQ heparin. Discussed with the patient's at bedside Charges/Coding Visit Charges Inpatient E&M: 22878 Subs Hosp L2
--- NOTE | 2025-03-19 09:42 | WOUNDNOTE ---
Pt is scheduled for surgery today for right great toe amputation per Dr Corondao. will leave dressing in place.
--- NOTE | 2025-03-19 09:47 | CASEMGMT ---
SHON DILL sent updated clinicals to [facility] and updated that patient is not discharge at this time and will not be at planned start of care tomorrow. CM will continue to follow this patient and plan for a safe discharge.
--- NOTE | 2025-03-19 10:27 | PCM.PRE.AN2 ---
ASA Classification* ASA Classification ASA Classification: 4 (Hx of CKD3, now having dialysis this morning. Also has aortic stenosis (please have phenylephrine ready) . EF 30%. Will do MAC sedation for this case, please be conservative and slow with medication dosing ) Assessment & Plan Anesthesia* Anesthesia Assessment Anesthesia Assessment: Discussed sedation and/or anesthesia options, risks, benefits, and alternatives with patient/parents/legal guardian/POA. Questions invited. The patient/parents/legal guardian/POA seems to understand and agrees to proceed with anesthesia plan. Reviewed the physical assessment, medical history, allergy history and patient home medications list prior to surgery/procedure/anesthetic and documented any changes. Performed airway and anesthesia risk assessments. Anesthesia Type Anesthesia Type: MAC (NO versed. Please proceed with small amounts of propofol (20-40 mg at a time) and fentanyl (25 mcg at a time) and titrate slowly ) History Source History Obtained from:: Patient and Chart Anesthesia Focused Assessment* Temperature: 97 F Pulse Rate: 62 Blood Pressure: 108/70 Respiratory Rate: 20 Pulse Ox: 99 Oxygen Delivery Method: Nasal Cannula Oxygen Flow Rate (L/min): 2 Airway Assessment Mouth opens: >3 cm Mallampati Score: III Neck Range of motion (ROM): Full ROM Focused Labs Anesthesia Preop lab: CBC WBC 7.4 K/mm3 (4.4-11.0) 03/19/25 06:25 03/19/25 RBC 3.98 M/mm3 (4.2-5.4) L 03/19/25 06:25 03/19/25 Hgb 10.4 g/dL (12.0-15.0) L 03/19/25 06:25 03/19/25 Hct 36.5 % (37-47) L 03/19/25 06:25 03/19/25 Plt Count 82 K/mm3 (150-450) L 03/19/25 06:25 03/19/25 CHEMISTRY Potassium 4.7 mmol/L (3.3-5.1) 03/18/25 05:26 03/18/25 Sodium 135 mmol/L (133-145) 03/18/25 05:26 03/18/25 Magnesium 2.6 mg/dL (1.5-2.2) H 03/13/25 15:11 03/13/25 Phosphorus 5.5 mg/dL (2.7-4.5) H 03/13/25 15:11 03/13/25 BUN 57 mg/dL (4-19) H 03/18/25 05:26 03/18/25 Creatinine 4.09 mg/dL (0.70-1.20) H 03/18/25 05:26 03/18/25 Glucose 139 mg/dL (70-99) H 03/18/25 05:26 03/18/25 POC Glucose 99 mg/dL (74-106) 03/19/25 06:22 03/19/25 TSH 0.224 uIU/mL (0.358-3.740) L 10/18/24 05:35 10/18/24 COAG PT 15.5 SECONDS (11.7-14.9) H 03/15/25 10:05 03/15/25 Pre-Assessment Diagnosis/Proposed Procedure Planned Operative Procedure(s): insertion hemodialysis catheter Anesthesia History Anesthesia History - director appointment: Anesthesia History - director appointment Hx Hospitalization No 11/05/22 15:04 Any Problems With Anesthesia No 03/16/25 08:00 Cholinesterase deficiency No 03/16/25 08:00 You/Your Family Experience No 03/16/25 08:00 fever (hyperthermia) with Relationship Recent Exposure to Contagious No 03/16/25 08:00 Disease Does patient have nerve No 03/16/25 08:00 stimulator Patient instructed to have device shut off --Does patient have Pacemaker No 03/19/25 06:23 or ICD? When Was Last Pacemaker Check QUESTION #4 FULL TEXT: You/Your Family Experience fever (hyperthermia) with Anesthesia Last Oral Intake Last Oral intake: Last Oral Intake NPO since 00:00 03/19/25 06:23 Meds taken in AM with sips of Yes 03/16/25 08:00 water? Meds patient instructed to coreg 03/16/25 08:00 take am of surgery PONV PONV - director appointment: PONV - director appointment Female HX of Motion Sickness HX of N/V After Surgery Non-Smoker Duration of Surgery greater than 60 minutes Number of Risk Factors PONV Score Height & Weight Height & Weight: Anesthesia: Height & Weight Height 4 ft 11.84 in 03/19/25 10:16 Weight: 123 kg 03/19/25 10:16 Body Mass Index (BMI) 53.2 03/19/25 07:03 Respiratory Assessment Respiratory Assessment - director appointment: Respiratory Tract Infection Hx - director appointment Hx Respiratory Tract Infection No 03/16/25 08:00 STOP Sleep Apnea STOP Sleep Apnea - director appointment: STOP Sleep Apnea - director appointment Hx Hypertension Yes 03/14/25 14:42 Hx Sleep Apnea No 03/16/25 13:15 CPAP BIPAP Do you snore loudly (louder No 03/13/25 19:56 than talking or can be heard Do you often feel tired/ No 03/13/25 19:56 fatigued/ sleepy during daytime? Has anyone observed you stop No 03/13/25 19:56 breathing during sleep? STOP Results Negative 03/16/25 12:45 QUESTION #5 FULL TEXT : Do you snore loudly (louder than talking or can be heard through closed doors)? Tobacco Use History Tobacco Use History - director appointment: Tobacco Use History - director appointment Tobacco Use Smoking Status Never smoker 03/13/25 19:56 Hx Tobacco Use No 03/13/25 19:56 Years Smoking Packs Smoked per Day Smoking Cessation Date was within the last 15 years Hx Smoking Cessation Date Hx Smoking Cessation Counseling Hematologic Medial History Hematologic Hx - director appointment: Hematologic Medical Hx - documentation improvement specialist Hx of Blood Transfusion No 03/13/25 19:56 Hx of Transfusion in last 3 No 03/13/25 19:56 Months Date of Last Transfusion (if within last 3 months) Ever experience any problems No 03/13/25 19:56 with transfusion(s)? Specify any problems Hx of Preganancy in last 3 No 03/13/25 19:56 Months Nurse Filling Out Transfusion RWALKER 03/13/25 19:56 & Questions: Date: 03/13/25 03/13/25 19:56 Time: 20:05 03/13/25 19:56 Patient unable to answer at this time (ie. confused, unrespo /Reproduction History /Reproductive History - director appointment: /Reproductive Hx- director appointment Hx Now No 03/16/25 08:00 Gestational Age (in weeks): EDC: Hx Hx Para Hx Section SAB No 03/16/25 08:00 Active Medications Active Medications: Current Medications Generic Name Dose Route Start Last Admin Trade Name Freq PRN Reason Stop Dose Admin Acetaminophen 650 mg 03/18/25 01:33 03/18/25 02:12 Acetaminophen 325 Mg Tablet PO 650 mg Q4H PRN PRN Administration Fever, pain 1-10 Aspirin 81 mg 03/14/25 08:00 03/19/25 09:04 Aspirin 81 Mg Tab.Chew PO Not Given BREAKFAST YOLI Atorvastatin Calcium 10 mg 03/13/25 22:00 03/18/25 21:08 Atorvastatin Calcium 10 Mg Tablet PO 10 mg QHS YOLI Administration Carvedilol 6.25 mg 03/14/25 08:00 03/19/25 09:04 Carvedilol 6.25 Mg Tablet PO Not Given BIDCM YOLI Protocol Furosemide 40 mg 03/17/25 22:00 03/19/25 06:21 Furosemide 40 Mg/4 Ml Vial IV 40 mg Q8 YOLI Administration Protocol Hemodialysis Solution 6 bag 03/19/25 07:15 03/19/25 08:04 Pureflow B 2k Dialysis Soln 1 Bag PF 03/19/25 19:04 6 bag UD YOLI Administration Protocol Heparin Sodium (Porcine) 5,000 unit 03/15/25 22:00 03/19/25 09:04 Heparin Injection (Vial) 5,000 Unit/Ml Vial SC Not Given BID YOLI Heparin Sodium (Porcine) 1,000 - 3,000 units 03/19/25 07:03 03/19/25 08:05 Heparin 10,000 Units/10 Ml Vial IV 03/19/25 19:03 1,600 units X1 PRN Administration HD catheter closing Sodium Chloride 100 mls @ 15 mls/hr 03/14/25 09:02 03/18/25 19:28 IV Infused .Q6H40M PRN Infusion Saline Flush Sodium Chloride 100 mls @ 15 mls/hr 03/14/25 09:02 IV .Q6H40M PRN Additional IVPB Infusion Sodium Chloride 500 mls @ 0 mls/hr 03/16/25 10:15 03/16/25 13:25 IV Infused .Q0M YOLI Infusion KVO Vancomycin IV-PHARMACY TO DOSE 500 mls @ 250 mls/hr 03/16/25 13:41 1 each/ Sodium Chloride IV X1 PRN Rx to Dose Protocol Piperacillin Sod/Tazobactam 50 mls @ 12.5 mls/hr 03/18/25 22:00 03/19/25 01:21 Sod 3.375 gm/ Sodium Chloride IV Infused Q12 YOLI Infusion Vancomycin HCl 1,000 mg in 200 mls @ 200 mls/hr 03/19/25 16:00 Vancomycin IV 03/19/25 16:59 X1 ONE Insulin Human Lispro 0 unit 03/14/25 07:00 03/19/25 06:23 Insulin Lispro 100 Unit/Ml Insuln.Pen SC Not Given ACHS YOLI Protocol Levothyroxine Sodium 100 mcg 03/14/25 06:00 03/19/25 09:04 Levothyroxine 100 Mcg Tablet PO Not Given DAILY@0600 YOLI Nystatin 1 applic 03/13/25 22:00 03/18/25 21:08 Nystatin Powder 15gm Bottle TOPICAL 1 applic BID YOLI Administration Protocol Sodium Chloride 10 - 40 ml 03/14/25 09:02 03/19/25 06:21 0.9% Saline Lock 10 Ml Syringe IV 10 ml UD PRN Administration SALINE FLUSH Sodium Chloride 1,000 ml 03/19/25 07:05 03/19/25 08:04 0.9% Normal Saline 1,000 Ml Iv.Soln. OPERA.SITE 03/19/25 19:03 1,000 ml X1 YOLI Administration Sodium Chloride 200 ml 03/19/25 07:03 0.9% Normal Saline 1,000 Ml Iv.Soln. IV 03/19/25 19:03 X1 PRN to maintain SBP >90mmHg during Dialysis Vancomycin Protocol 1 lab 03/21/25 05:00 Vancomycin Trough/Random Due MC 03/21/25 07:00 DAILY YOLI PFSH Medical History Congestive heart failure Hypothyroidism Osteoporosis Morbid obesity with BMI of 45.0-49.9, adult Wears glasses Post-menopausal Thyroid disease Diabetes Uses wheelchair Ambulates with cane Arthritis High cholesterol Back pain TIA (transient ischemic attack) Dietary restriction Non-smoker History of pain when walking History of transesophageal echocardiography (DESTIN) Cardiology follow-up encounter Hypertension Hypertension Diabetes Home Medications ?Medication ?Instructions ?Recorded ?Last Taken ?Type atorvastatin 10 mg tablet 10 mg PO QHS cholesterol 08/31/22 03/12/25 History levothyroxine 100 mcg tablet 100 mcg PO DAILY thyroid 08/31/22 03/13/25 History (Synthroid) aspirin 81 mg chewable tablet 81 mg PO DAILYCM 90 days #90 tabs 10/21/24 03/13/25 Rx carvedilol 6.25 mg tablet (Coreg) 6.25 mg PO BID #60 tabs 12/01/24 03/13/25 Rx dapagliflozin propanediol 10 mg 10 mg PO QDAY #30 tabs 03/12/25 Unknown Rx tablet (Farxiga) furosemide 40 mg tablet 40 mg PO QAM #30 tabs 03/12/25 03/13/25 Rx metformin 500 mg tablet 500 mg PO BID 03/12/25 03/13/25 History Allergy/AdvReac Type Severity Reaction Status Date / Time No Known Allergies Allergy Verified 03/13/25 13:58 Family History Mother Hypertension Father Heart disease Surgical History Hx of colonoscopy Hx of cholecystectomy H/O: hysterectomy Social History household members: spouse Smoking Status: Never smoker alcohol intake: never substance use type: does not use caffeine: No Review of Systems (Anesthesia) ROS Narrative System reviewed and no additional complaints, except as documented. Physical Exam Narrative lower extremity edema Const alert and oriented x3 Nutritional Appearance: morbidly obese Resp normal respiratory effort, normal air movement and clear to auscultation bilaterally Cardio regular rate and regular rhythm
--- NOTE | 2025-03-19 10:42 | PN.RENAL_ITS ---
Subjective Subjective Patient resting in bed, on hemodialysis. at bedside. No overnight events. Objective Data Objective Data Vital Signs: Vital Signs Temp Pulse Resp BP Pulse Ox O2 Del Method O2 Flow Rate 97 F L 64 18 122/59 H 98 Nasal Cannula 2 03/19/25 10:28 03/19/25 10:30 03/19/25 10:30 03/19/25 10:30 03/19/25 10:30 03/19/25 10:30 03/19/25 10:30 Oxygen Flow Rate (L/min) 2 Oxygen Delivery Method Nasal Cannula Weight: 123 kg Body Mass Index (BMI) 53.2 Intake & Output: Intake and Output for Last 24 Hours 03/17/25 03/18/25 03/19/25 23:59 23:59 23:59 Intake Total 650 / 650 640 / 700 110 / 110 Output Total 1300 / 1300 170 / 270 500 / 500 Balance -650 / -650 470 / 430 -390 / -390 Lab / Micro Data 03/19/25 06:25 03/18/25 05:26 Labs: Laboratory Results - last 24 hr 03/18/25 11:30: POC Glucose 117 H 03/18/25 16:10: POC Glucose 136 H 03/18/25 21:09: POC Glucose 130 H 03/19/25 06:22: POC Glucose 99 03/19/25 06:25: WBC 7.4, RBC 3.98 L, Hgb 10.4 L, Hct 36.5 L, MCV 91.7, MCH 26.1 L, MCHC 28.5 L, RDW Std Deviation 58.4 H, RDW Coeff of Leif 17.5 H, Plt Count 82 L, MPV 10.7, Differential Comment Micro: Microbiology 03/16/25 09:25 Wound - Toe Gram Stain - Final 03/16/25 09:25 Wound - Toe Wound Culture - Preliminary Enterococcus casseliflavus (D) Enterococcus avium Gram positive ana laura 03/14/25 18:00 Urine Catheter - Catheter Urine Culture - Final Culture exhibits no growth. Physical Exam Narrative Alert and oriented x 3, no apparent distress S1, S2, RRR Diminished breath sounds Abdomen soft, nontender Edema bilateral lower legs Tunneled hemodialysis catheter dressing C/D/I; accessed for hemodialysis Assessment & Plan Assessment/Plan (1) Acute on chronic renal failure: QUALIFIERS: Acute renal failure type: unspecified Chronic kidney disease stage: stage 3 (moderate) Chronic kidney disease stage 3 subtype: stage 3a (GFR 45-59) Qualified Code(s): N17.9 - Acute kidney failure, unspecified; N18.31 - Chronic kidney disease, stage 3a PLAN: JOSUE superimposed on CKD stage IIIb. Baseline creatinine around 1.7 mg/dL as of December 2024. Renal ultrasound no hydronephrosis. Patient oliguric. Reason for JOSUE unclear, serologies pending and will also plan for Kidney biopsy (patient agreeable). Double-stranded DNA less than 1. Serum creatinine peaked 5.96 on 03/16, tunneled hemodialysis catheter placed 03/16 and patient's first hemodialysis on 03/16. Patient had dialysis again on 03/17. Undergoing dialysis today, attempting around 1 to 2 L fluid removal as patient/blood pressure tolerates. Around 120 mL urine output yesterday, on Lasix 40 mg IV 3 times daily (started after HD initiated). Outpatient hemodialysis arrangements underway at [facility]. Assessment and plan reviewed with Dr. Gputa.
[2025-03-19] MEDS: 0.9% Normal Saline (500mL Bag) 500 ML 15 ML IV (11:11)
--- NOTE | 2025-03-19 11:30 | BONBX_PTH ---
PATIENT: MISAEL MEDINA LOC: [facility] U#:[id number] AGE/SX: 74/F ROOM: [facility] RE03/13/[address]: Dr. Fitz Ryan DO : 1950 BED: 1 DIS: 03/23/2025 SPEC #: [id number] RECD: 03/19/25 13:01 STATUS: BHUPENDRA REQ #: [id number] EZIO: 03/19/25 11:[address]: Lucas Coronado DEPT: SURGICAL PATHOLOGY RECD BY: Aashish Santillan ENTERED: 03/19/25 13:37 SP TYPE: Bone OTHR DR: DO Donal Mulilns MD Dr. Eric Jopperi, DO Dr. Jayaprakas Dasari, MD Dr. Michael Bortz, MD Dr. Nicholas F Kotsonis, MD Dr. Nagapradee Nagajothi, MD Tissues: A - Toe, NOS Procedures: Decalcification bone/plaque Surgery Specimen Level V Comments: @ Ordering doctor for DEC edited from to @ by LE at 03/19/251336 @ Ordering doctor for SUV edited from to @ by LE at 03/19/25 133Terrence @ Submitting doctor edited from to @ madi LUJAN at 03/19/25Terrence HEADER OPERATION: PRE-OP DIAGNOSIS: acute osteomyelitis TISSUE SUBMITTED:right great toe distal phalanx soft tissue and bone MICROSCOPIC DIAGNOSIS A. Right great toe, distal phalanx, soft tissue and bone, amputation: * Ulcerated and acutely inflamed soft tissue * Bone with acute osteomyelitis MICROSCOPIC DESCRIPTION Slides are reviewed. GROSS DESCRIPTION A. Received in formalin in a container labeled with the patient's name, date of , and right great toe distal phalanx soft tissue and bone are multiple red-brewer, irregular, and disrupted fragments of bone and soft tissue measuring 3.4 x 3.0 x 1.6 cm in aggregate. The largest fragment exhibits a 2.7 x 0.5 cm strip of white-brewer, roughened possible skin. Sectioning of the bone reveals firm red-brewer surfaces. The soft tissue is sectioned to reveal brewer-pink, roughened surfaces. Permanent Mold Supervisor sections are submitted in A1 following decalcification. [facility] 03-19-2025 CPT:38823,07624
--- NOTE | 2025-03-19 11:42 | PCM.PROGNOTE ---
Objective Data Objective Data Vital Signs: Vital Signs Temp Pulse Resp BP Pulse Ox O2 Del Method O2 Flow Rate 97.1 F L 65 18 111/74 98 Nasal Cannula 2 03/19/25 10:45 03/19/25 10:45 03/19/25 10:45 03/19/25 10:45 03/19/25 11:16 03/19/25 11:22 03/19/25 11:16 Oxygen Flow Rate (L/min) 2 Oxygen Delivery Method Nasal Cannula Weight: 123 kg Body Mass Index (BMI) 53.2 Intake & Output: Intake and Output for Last 24 Hours 03/17/25 03/18/25 03/19/25 23:59 23:59 23:59 Intake Total 650 / 650 640 / 700 110 / 110 Output Total 1300 / 1300 170 / 270 1210 / 1210 Balance -650 / -650 470 / 430 -1100 / -1100 Lab / Micro Data 03/19/25 06:25 03/18/25 05:26 Labs: Laboratory Results - last 24 hr 03/18/25 11:30: POC Glucose 117 H 03/18/25 16:10: POC Glucose 136 H 03/18/25 21:09: POC Glucose 130 H 03/19/25 06:22: POC Glucose 99 03/19/25 06:25: WBC 7.4, RBC 3.98 L, Hgb 10.4 L, Hct 36.5 L, MCV 91.7, MCH 26.1 L, MCHC 28.5 L, RDW Std Deviation 58.4 H, RDW Coeff of Leif 17.5 H, Plt Count 82 L, MPV 10.7, Differential Comment Micro: Microbiology 03/16/25 09:25 Wound - Toe Gram Stain - Final 03/16/25 09:25 Wound - Toe Wound Culture - Preliminary Enterococcus casseliflavus (D) Enterococcus avium Gram positive ana laura 03/14/25 18:00 Urine Catheter - Catheter Urine Culture - Final Culture exhibits no growth. Physical Exam Narrative Vascular: Dorsalis pedis posterior tibial pulses palpable 2/4 bilateral lower extremities. Atrophic skin changes with thinning, shiny, taut, absent digital hair growth. Neurologic: Light touch and protective sensation absent to bilateral feet. Dermatologic: Full-thickness ulceration distal tuft of right hallux extending down to the level of distal phalanx. There is noted to be purulent drainage from the wound with periwound hyperkeratosis erythema edema and warmth. No evidence of crepitus or fluctuance when palpating the wound or periwound areas. Swelling inflammation appears limited to the right great toe. There is a partial-thickness ulceration to the dorsal aspect of the left second toe. Stable granular base no acute signs of infection. Musculoskeletal: Hallux limitus right foot contributing to wound formation, hammertoe deformity left second toe. Muscular strength for bilateral lower extremity compartments. Assessment & Plan Assessment/Plan (1) Other acute osteomyelitis, right ankle and foot: PLAN: Exam performed. 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
[2025-03-19] MEDS: Piperacil/Tazobactam 3.375 GM in 0.9% Normal Saline (50mL MB+) 50 ML IV ×2 (11:48→22:06)
[2025-03-19] MEDS: Bupivacaine Mpf 0.5% 30 ML VIAL (12:22)
--- NOTE | 2025-03-19 12:33 | OP.PCM_ITS ---
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 Type of Anesthesia: Local and MAC RN Documented Start/Stop Times: Operation Date: 03/19/25 11:30 Case Time Into Pre-Op 03/19/25 11:05 Anesthesia Start 03/19/25 11:48 Into Room 03/19/25 11:48 Procedure Start 03/19/25 12:09 Procedure End 03/19/25 12:30 Procedure Start Time: 12:00 Procedure Stop Time: 12:30 Select all DRAINS/GRAFTS/IMPLANTS that apply: None Special Medications: 30cc marcaine plain Estimated Blood Loss: minimal Specimen collected: Yes Description of specimen(s) removed: right hallux bone for culture and pathology Description of surgery: Procedure: * Right partial hallux amputation * Resection of distal phalanx and partial proximal phalanx (due to osteomyelitis) * Advancement flap closure using fishmouth incision (CPT 84010) Indications: Patient with diabetic neuropathy, microvascular disease, and end-stage renal disease (ESRD) presented with osteomyelitis of the distal phalanx of the right hallux. Due to non-resolving infection and non-viable tissue, surgical amputation was indicated. Anesthesia: * MAC anesthesia * Gutierrez block performed with 30 cc of 0.5% Marcaine plain * No tourniquet used Intraoperative Findings: * Osteomyelitis confirmed in the distal phalanx * Surrounding soft tissue compromised but amenable to flap closure Procedure Details: A fishmouth incision was performed for adequate exposure and soft tissue advancement. The distal phalanx was resected and sent for bone culture and pathology. Additional resection of the proximal phalangeal head was carried out using bone-cutting forceps to allow for adequate soft tissue closure. Advancement flap was mobilized, and layered closure was performed: * 3-0 Monocryl for subcutaneous tissue * 3-0 Prolene simple interrupted sutures for skin Hemostasis: Achieved with minimal blood loss. Wound Dressing: Betadine, Adaptic, 4x4 gauze, Kerlix wrap, and Delvin bandage applied. Specimens Sent: * Distal phalanx to pathology and for bone culture Estimated Blood Loss: Minimal Complications: None Surgical Findings: as dictated above Complications Complications: No
[2025-03-19 12:50] LABS: Anion Gap 14 (5-15); BUN 59 mg/dL (4-19); BUN/Creat Ratio 13.1 RATIO (10-20); Calcium,Total 7.9 mg/dL (7.6-11.0); Carbon Dioxide 17.4 mmol/L (21.0-32.0); Chloride 103 mmol/L (98-108); Creatinine, Serum 4.52 mg/dL (0.70-1.20); EST Glomerular Filtration Rate 10 (>60); Estimated Creatinine Clearance 13.19 ml/min (50-250); Glucose 92 mg/dL (70-99); Potassium 5.4 mmol/L (3.3-5.1); Sodium Level 134 mmol/L (133-145)
--- NOTE | 2025-03-19 13:01 | PCM.POST.ANE ---
Anesthesia: Postop Eval I Current Vital Signs Temperature: 97.6 F Pulse Rate: 76 Blood Pressure: 98/45 Respiratory Rate: 16 Pulse Ox: 94 Oxygen Delivery Method: Simple Mask Oxygen Flow Rate (L/min): 8 Assessment Airway patent: Yes Spontaneous unlabored respirations: Yes Mental status: Awake and Calm nausea: No Vomiting: No Anesthesia Complication: No Fluid Hydration Crystalloid volume administer (ml): 50 Total IV fluid infused: 50 Progress Note Anesthesia document: Postop Eval 1 completed: Yes
--- NOTE | 2025-03-19 13:02 | SUR.PHASEI ---
DR. HENDRICKSON CALLED TO BEDSIDE BY DR. WRIGHT TO ASSESS PATIENT'S EDEMATOUS HAND THAT INCREASED IN THE LAST [address] HENDRICKSON SAID SINCE THE PATIENT HAS GOOD MOVMENT AND NO PAIN THERE WAS NO NEED FOR ANY INTERVENTION OTHER THAN ELEVATING AT THIS TIME.
--- NOTE | 2025-03-19 13:31 | PCM.POSTANE2 ---
Anesthesia Postop Eval I Sum Postop Eval Completion status Anesthesia document: Postop Eval 1 completed: Yes Anesthesia Postop Eval I Summary Anesthesia Postop Eval I Summary: Anesthesia Postop Eval I: Assessment Summary Airway patent Yes 03/19/25 13:04 BATTERY CONTAINER [email or web address].[email or web address] Spontaneous unlabored Yes 03/19/25 13:04 BATTERY CONTAINER TESTER.DANNI respirations Mental status Awake,Calm 03/19/25 13:04 BATTERY CONTAINER TESTER.[email or web address] nausea No 03/19/25 13:04 BATTERY CONTAINER TESTER.[email or web address] Vomiting No 03/19/25 13:04 BATTERY CONTAINER TESTER.[email or web address] Anesthesia Postop Eval I: Fluid Summary Crystalloid volume administer 50 03/19/25 13:04 BATTERY CONTAINER TESTER.[email or web address] (ml) Colloids volume administered ( ml) Blood Product volume administered (ml) Total IV fluid infused 50 03/19/25 13:04 BATTERY CONTAINER TESTER.[email or web address] Anesthesia Postop Eval I: Summary Notes Anesthesia Complication No 03/19/25 13:04 BATTERY CONTAINER TESTER.[email or web address] Anesthesia Complication Comment: Post-operative progress note Anesthesia: Postop Eval II Evaluation Mental status: Awake Pain Level: 0 nausea: No Vomiting: No Progress Note Post-operative progress note: Patient had edema in the RUE upon arrival in PACU. Unknown why this extremity became edematous; as patient was dialyzed this AM. Had ortho (Dr. Love) evaluate, he stated that her vascular exam was WNL and he was not concerned about compartment syndrome. We elevated the extremity, and the edema improved significantly and is almost back to baseline. In addition, the patient would have occasional, singular PVCs. Both items will be signed out to the floor team by the PACU nurse taking care of this patient . Complications Anesthesia Complication: No
[2025-03-19] MEDS: Nystatin Powder 15gm Bottle 1 APPLIC TOPICAL ×2 (14:10→22:03)
[2025-03-19 16:56] LABS: Bedside Glucose 85 mg/dL (74-106)
[2025-03-19] MEDS: Vancomycin IV 1,000 MG/200 ML BAG 200 MG IV (17:11)
[2025-03-19 21:07] LABS: Anti-Glomerular Basement Memb < 0.2 units (0.0-0.9); Complement C3 131 mg/dL (82-167); Cytoplasmic Ab (C-ANCA) <1:20 titer (Neg:<1:20); Perinuclear Ab (P-ANCA) <1:20 titer (Neg:<1:20)
[2025-03-19] MEDS: Atorvastatin Calcium 10 MG Tablet PO (22:03)
[2025-03-19 22:52] LABS: Bedside Glucose 101 mg/dL (74-106)
[2025-03-20] VITALS (8 sets, daily range): BP systolic 90–123; BP diastolic 44–62; PULSE 68–81; RESP 16–20; TEMP 36.4–36.9; O2SAT 92–97; BMI 53.4
[2025-03-20 05:11] LABS: Absolute Lymphocyte Count 0.65 X10^3/uL (0.83-4.51); Absolute Neutrophil Count 8.5 X10^3/uL (2.0-7.7); Basophil# 0.03 X10^3/uL; Basophil% 0.3 % (0-1); Eosinophil# 0.03 X10^3/uL; Eosinophils% 0.3 % (0-5); Hematocrit 39.1 % (37-47); Lymphocyte # 0.65 X10^3/ul (0.83-4.51); Lymphocyte % 6.4 % (19-41); Mean Corp Hgb Conc 28.1 g/dL (32-36); Mean Corpuscular Hgb 25.7 pg (27.0-32.0); Mean Corpuscular Volume 91.4 fL (81-99); Mean Platelet Vol. 9.2 fl (6.2-12.0); Monocyte# 0.78 X10^3/uL; Monocyte% 7.7 % (0-10); NRBC Flagged by Analyzer 0.8 % (0-5); Neutrophil # 8.51 X10^3/uL (2.7-7.7); Neutrophil % 84.1 % (47-70); Platelet Count 188 K/mm3 (150-450); RBC Distribution Width CV 17.2 % (11.6-14.6); RBC Distribution Width SD 57.3 fl (35.1-43.9); Red Blood Count 4.28 M/mm3 (4.2-5.4); White Blood Count 10.1 K/mm3 (4.4-11.0)
[2025-03-20 05:45] LABS: Anion Gap 15 (5-15); BUN 49 mg/dL (4-19); BUN/Creat Ratio 12.1 RATIO (10-20); Calcium,Total 8.3 mg/dL (7.6-11.0); Carbon Dioxide 20.3 mmol/L (21.0-32.0); Chloride 102 mmol/L (98-108); Creatinine, Serum 4.02 mg/dL (0.70-1.20); EST Glomerular Filtration Rate 11 (>60); Estimated Creatinine Clearance 14.87 ml/min (50-250); Glucose 79 mg/dL (70-99); Potassium 4.6 mmol/L (3.3-5.1); Sodium Level 137 mmol/L (133-145)
[2025-03-20] MEDS: Furosemide 40 MG/4 ML Vial IV ×2 (05:48→14:33)
[2025-03-20] MEDS: Levothyroxine 100 MCG Tablet PO (05:48)
[2025-03-20 07:05] LABS: Bedside Glucose 80 mg/dL (74-106)
--- NOTE | 2025-03-20 07:42 | ANES.CONFIRM ---
Anesthesia: Confirm Documents Multiple Procedures on Account (2) Confirmed Documents: Yes
--- NOTE | 2025-03-20 08:17 | PN_ITS ---
Subjective Subjective Patient seen 1 day postop. Patient resting comfortably. No pain. Objective Data Objective Data Vital Signs: Vital Signs Temp Pulse Resp BP Pulse Ox O2 Del Method O2 Flow Rate 98.4 F 80 16 117/56 L 96 Nasal Cannula 2 03/20/25 06:50 03/20/25 06:50 03/20/25 06:50 03/20/25 06:50 03/20/25 06:50 03/20/25 06:50 03/20/25 06:50 Oxygen Flow Rate (L/min) 2 Oxygen Delivery Method Nasal Cannula Weight: 123.6 kg Body Mass Index (BMI) 53.4 Intake & Output: Intake and Output for Last 24 Hours 03/18/25 03/19/25 03/20/25 23:59 23:59 23:59 Intake Total 640 / 700 360 / 360 50 / 50 Output Total 170 / 270 1410 / 1410 50 / 50 Balance 470 / 430 -1050 / -1050 0 / 0 Lab / Micro Data 03/20/25 04:43 03/20/25 04:43 Labs: Laboratory Results - last 24 hr 03/15/25 10:05: c-ANCA Antibody <1:20, Atypical p-ANCA <1:20, p-ANCA Antibody <1:20, Glomerular Base Memb Ab < 0.2, Complement C3 131, Complement C4 33 03/19/25 06:25: Differential Comment , Sodium 134, Potassium 5.4 H, Chloride 103, Carbon Dioxide 17.4 L, Anion Gap 14, BUN 59 H, Creatinine 4.52 H, Estim Creat Clear Calc 13.19 L, Est GFR (MDRD) Non-Af 10 L, BUN/Creatinine Ratio 13.1, Glucose 92, Calcium 7.9, TSH 4.300 H 03/19/25 16:38: POC Glucose 85 03/19/25 22:02: POC Glucose 101 03/20/25 04:43: WBC 10.1, RBC 4.28, Hgb 11.0 L, Hct 39.1, MCV 91.4, MCH 25.7 L, MCHC 28.1 L, RDW Std Deviation 57.3 H, RDW Coeff of Leif 17.2 H, Plt Count 188, MPV 9.2, Immature Gran % (Auto) 1.200 H, Neut % (Auto) 84.1 H, Lymph % (Auto) 6.4 L, [place] % (Auto) 7.7, Eos % (Auto) 0.3, Baso % (Auto) 0.3, Absolute Neuts (auto) 8.5 H, Absolute Lymphs (auto) 0.65 L, Nucleated RBC % 0.8, Sodium 137, Potassium 4.6, Chloride 102, Carbon Dioxide 20.3 L, Anion Gap 15, BUN 49 H, C reatinine 4.02 H, Estim Creat Clear Calc 14.87 L, Est GFR (MDRD) Non-Af 11 L, BUN/Creatinine Ratio 12.1, Glucose 79, Calcium 8.3 03/20/25 06:46: POC Glucose 80 Micro: Microbiology 03/16/25 09:25 Wound - Toe Gram Stain - Final 03/16/25 09:25 Wound - Toe Wound Culture - Final Enterococcus casseliflavus (D) Enterococcus avium Gram positive ana laura 03/19/25 12:50 Wound - Aerobic Swab Gram Stain - Final 03/14/25 18:00 Urine Catheter - Catheter Urine Culture - Final Culture exhibits no growth. Radiography Diagnostic Testing: Radiology Impression Ankle Brachial Index 03/16/25 12:47 Interpretation Summary Right ROJELIO 2.09, artificially elevated. Doppler/PVR waveforms of the right ankle mildly diminished at rest. Left ROJELIO 1.44, normal. TBI and Doppler/PVR waveforms of the left ankle normal at rest. Ordering Physician: Lucas Coronado Referring Physician: Donal Castle Performed By: Nabor [place], RVT Physical Exam Narrative Neurovascular status unchanged. Right hallux amputation site noted be well-approximated with intact sutures. Mild sanguinous drainage noted to dressing. No residual acute signs of infection noted. No signs DVT bilaterally. Assessment & Plan Assessment/Plan (1) Other acute osteomyelitis, right ankle and foot: PLAN: Exam performed. 1 day postop right hallux partial amputation. Awaiting intraoperative cultures. Recommend ID consult for antibiotic management Patient can be heel weightbearing in surgical shoe assisted by walker of the right lower extremity. Plan for dressing changes once a week until incision healing consisting of Betadine Adaptic 4 x 4's Kerlix and Delvin bandage this was performed today. Patient will follow-up in 1 week postoperatively in my outpatient clinic unless patient is still in transitional care unit or hospital at which time I will evaluate patient in the hospital. *This time I will sign off of any additional care is required during this inpatient stay please feel free to contact me and I will come back evaluate the patient my phone number is [phone] (2) Non-pressure chronic ulcer of other part of right foot with necrosis of bone:
--- NOTE | 2025-03-20 09:14 | WOUNDNOTE ---
wound photo: right great toe
--- NOTE | 2025-03-20 09:14 | WOUNDNOTE ---
wound photo: right great toe
--- NOTE | 2025-03-20 09:35 | US_ITS ---
EXAM: Ultrasound-guided renal biopsy. CLINICAL HISTORY: Acute kidney injury. COMPARISON: None. TECHNIQUE: Ultrasound-guided kidney biopsy. FINDINGS: Procedure: Following informed consent, and using standard sterile technique, an ultrasound- guided left inferior kidney biopsy was performed via an anterolateral approach. 2% lidocaine local anesthesia was followed by placement of a CorVocet 18 gauge 20 cm core biopsy system. 3 biopsy specimens were then obtained. No complication was encountered, in the patient left the department in good condition, without significant complaint US/Kidney Biopsy IMPRESSION: Successful left inferior renal ultrasound guided core biopsy. Laboratory resul ts pending. Reading Location: [place] [address]
--- NOTE | 2025-03-20 10:32 | PCM.CONS.GEN ---
Assessment & Plan Assessment/Plan (1) Right hallux osteomyelitis: PLAN: Wound cx with enterococcus x2, GPR. Now s/p OR 03/19/[address] Coronado for distal r 1st toe amputation. Surg cx pending. On vanc/zosyn, will narrow to unasyn. Plan for discharge given presumed source control will be po augmentin 250mg bid for one week while final cx and path pending. Will follow, thank you, lonw case coordinator (2) Type 2 diabetes mellitus with diabetic polyneuropathy: QUALIFIERS: Diabetes mellitus halfway insulin use: with halfway use Qualified Code(s): E11.42 - Type 2 diabetes mellitus with diabetic polyneuropathy; Z79.4 - intermediate frame tender (current) use of insulin (3) Acute on chronic renal failure: QUALIFIERS: Acute renal failure type: unspecified Chronic kidney disease stage: stage 3 (moderate) Chronic kidney disease stage 3 subtype: stage 3a (GFR 45-59) Qualified Code(s): N17.9 - Acute kidney failure, unspecified; N18.31 - Chronic kidney disease, stage 3a HPI Consult Data Date of Consult: 03/20/25 HPI Narrative Reason for Consultation: osteo HPI Narrative: MISAEL MEDINA, is a 74 F with h/o DM with neuropathy, CKD, CHF, presented 03/13 with several weeks not feeling well. Had pneumonia in October, admitted here. In the past few months, stepped on something and hurt R 1st toe. Had progressive pain, redness, swelling, drainage. No fever or chills, no recent abx. Admitted here with JOSUE, neph/podiatry/cardiology consulted. Now s/p distal toe amputation by Dr. Coronado 03/19/25. Feeling ok, pain controlled. Full ROS performed and neg except as noted above. [facility] Medical History Congestive heart failure Hypothyroidism Osteoporosis Morbid obesity with BMI of 45.0-49.9, adult Wears glasses Post-menopausal Thyroid disease Diabetes Uses wheelchair Ambulates with cane Arthritis High cholesterol Back pain TIA (transient ischemic attack) Dietary restriction Non-smoker History of pain when walking History of transesophageal echocardiography (DESTIN) Cardiology follow-up encounter Hypertension Hypertension Diabetes Home Medications ?Medication ?Instructions ?Recorded ?Last Taken ?Type atorvastatin 10 mg tablet 10 mg PO QHS cholesterol 08/31/22 03/12/25 History levothyroxine 100 mcg tablet 100 mcg PO DAILY thyroid 08/31/22 03/13/25 History (Synthroid) aspirin 81 mg chewable tablet 81 mg PO DAILYCM 90 days #90 tabs 10/21/24 03/13/25 Rx carvedilol 6.25 mg tablet (Coreg) 6.25 mg PO BID #60 tabs 12/01/24 03/13/25 Rx dapagliflozin propanediol 10 mg 10 mg PO QDAY #30 tabs 03/12/25 Unknown Rx tablet (Farxiga) furosemide 40 mg tablet 40 mg PO QAM #30 tabs 03/12/25 03/13/25 Rx metformin 500 mg tablet 500 mg PO BID 03/12/25 03/13/25 History Allergy/AdvReac Type Severity Reaction Status Date / Time No Known Allergies Allergy Verified 03/13/25 13:58 Family History Mother Hypertension Father Heart disease Surgical History Hx of colonoscopy Hx of cholecystectomy H/O: hysterectomy Social History household members: spouse Smoking Status: Never smoker alcohol intake: never substance use type: does not use caffeine: No Physical Exam Const alert, oriented x3 and no apparent distress General Appearance: cooperative HEENT normocephalic and head/scalp atraumatic Eyes PERRL and EOMs intact bilaterally Neck supple and No nodes Resp normal air movement and clear to auscultation bilaterally Cardio regular rate and regular rhythm GI soft to palpation, non-tender and non-distended Extremity General Extremity: edema Skin Skin Narrative: reviewed wound photos Neuro CN's II-XII intact bilaterally Lab / Micro Data Attestation: I reviewed the patient's lab results. 03/20/25 04:43 03/20/25 04:43 Labs: Laboratory Results - last 24 hr 03/15/25 10:05: c-ANCA Antibody <1:20, Atypical p-ANCA <1:20, p-ANCA Antibody <1:20, Glomerular Base Memb Ab < 0.2, Complement C3 131, Complement C4 33 03/19/25 06:25: Sodium 134, Potassium 5.4 H, Chloride 103, Carbon Dioxide 17.4 L, Anion Gap 14, BUN 59 H, Creatinine 4.52 H, Estim Creat Clear Calc 13.19 L, Est GFR (MDRD) Non-Af 10 L, BUN/Creatinine Ratio 13.1, Glucose 92, Calcium 7.9, TSH 4.300 H 03/19/25 16:38: POC Glucose 85 03/19/25 22:02: POC Glucose 101 03/20/25 04:43: WBC 10.1, RBC 4.28, Hgb 11.0 L, Hct 39.1, MCV 91.4, MCH 25.7 L, MCHC 28.1 L, RDW Std Deviation 57.3 H, RDW Coeff of Leif 17.2 H, Plt Count 188, MPV 9.2, Immature Gran % (Auto) 1.200 H, Neut % (Auto) 84.1 H, Lymph % (Auto) 6.4 L, [place] % (Auto) 7.7, Eos % (Auto) 0.3, Baso % (Auto) 0.3, Absolute Neuts (auto) 8.5 H, Absolute Lymphs (auto) 0.65 L, Nucleated RBC % 0.8, Sodium 137, Potassium 4.6, Chloride 102, Carbon Dioxide 20.3 L, Anion Gap 15, BUN 49 H, Creatinine 4.02 H, Estim Creat Clear Calc 14.87 L, Est GFR (MDRD) Non-Af 11 L, BUN/Creatinine Ratio 12.1, Glucose 79, Calcium 8.3 03/20/25 06:46: POC Glucose 80 Micro: Microbiology 03/19/25 12:50 Wound - Aerobic Swab Gram Stain - Final 03/19/25 12:50 Wound - Aerobic Swab Wound Culture - Preliminary 03/16/25 09:25 Wound - Toe Gram Stain - Final 03/16/25 09:25 Wound - Toe Wound Culture - Final Enterococcus casseliflavus (D) Enterococcus avium Gram positive ana laura Imaging Radiology Impression Ankle Brachial Index 03/16/25 12:47 Interpretation Summary Right ROJELIO 2.09, artificially elevated. Doppler/PVR waveforms of the right ankle mildly diminished at rest. Left ROJELIO 1.44, normal. TBI and Doppler/PVR waveforms of the left ankle normal at rest. Ordering Physician: Lucas Coronado Referring Physician: Donal Castle Performed By: Nabor [place] RVT
[2025-03-20] MEDS: Lidocaine 2% (20 ml mdv) 20 ML Vial INFILT (11:00)
[2025-03-20] MEDS: Ampicillin/Sulbactam 3 GM in 0.9% Normal Saline (100mL MB+) 100 ML IV (11:56)
[2025-03-20] MEDS: 0.9% Saline Lock 10 ML Syringe IV ×2 (11:58→22:23)
[2025-03-20] MEDS: Nystatin Powder 15gm Bottle 1 APPLIC TOPICAL ×2 (12:01→22:22)
[2025-03-20] MEDS: Carvedilol 6.25 MG Tablet PO ×2 (12:01→17:28)
[2025-03-20] MEDS: Aspirin 81 MG TAB.CHEW PO (12:01)
[2025-03-20] MEDS: Heparin Injection (Vial) 5,000 UNIT/ML VIAL 5000 UNIT SC ×2 (12:10→22:21)
--- NOTE | 2025-03-20 12:50 | PCM.PN.BLA ---
Progress Note went down for biopsy. could not see today. serologies mostly negative. some urine output. HD likely tomorrow depending on labs. will call pathology tomorrow for results of biopsy
[2025-03-20 12:56] LABS: Bedside Glucose 78 mg/dL (74-106)
[2025-03-20 13:05] LABS: Pathology Sent to OSU SEE PATHOLOGY REPORT
[2025-03-20] MEDS: 0.9 % NaCl (Sterile) Posiflush 10 mL IV (14:33)
--- NOTE | 2025-03-20 14:33 | CASEMGMT ---
RN CM in to discuss needs at discharge with patient, at bedside. RN CM reviewed progress with therapy, dependent x2 to sit edge of bed. RN CM discussed possible SNF for additional therapy, patient and amendable to plan. Patient and had no further questions or concerns. RN CM to provide patient with SNF list to review. CM will continue to follow this patient and plan for a safe discharge.
--- NOTE | 2025-03-20 14:42 | CASEMGMT ---
Discharge Planning A list of?SNF providers including quality and resource use data and consistent with the patient's preferred geographic region, medical needs, and insurance network was created in [facility] Guide.? This list was provided to the RN ANIYAH. Yeimi Drake, Discharge Planning Asst.
[2025-03-20 17:14] LABS: Bedside Glucose 151 mg/dL (74-106)
--- NOTE | 2025-03-20 17:35 | PCM.PN.HOSP ---
Reason for Visit Reason for Visit: Diagnoses Type 2 diabetes mellitus with diabetic polyneuropathy (03/13/25) Hyperkalemia (03/13/25) Essential (primary) hypertension (03/13/25) Pulmonary hypertension, unspecified (03/13/25) Nonrheumatic aortic (valve) stenosis (03/13/25) Acute on chronic systolic (congestive) heart failure (03/13/25) Non-pressure chronic ulcer of other part of right foot with necrosis of bone (03/13/25) Other acute osteomyelitis, right ankle and foot (03/13/25) Osteomyelitis, unspecified (03/13/25) Acute kidney failure, unspecified (03/13/25) Chronic kidney disease, stage 3a (03/13/25) Chronic kidney disease, stage 3b (03/13/25) Chronic kidney disease, unspecified (03/13/25) nursing home (current) use of insulin (03/13/25) Subjective Subjective Patient seen post kidney biopsy, she denies any pain, still edematous, has no other concerns or complaints, does have some serous fluid lytes trickling out of area where patient had kidney biopsy however it is completely serous in nature with no sanguinous component, suspect it is weeping from her significant edema, no pain, pressure dressing to be applied Objective Data Objective Data Vital Signs: Vital Signs Temp Pulse Resp BP Pulse Ox O2 Del Method O2 Flow Rate 98.1 F 77 16 104/62 95 Nasal Cannula 2 03/20/25 11:15 03/20/25 11:15 03/20/25 11:15 03/20/25 11:15 03/20/25 11:15 03/20/25 11:15 03/20/25 11:15 Oxygen Flow Rate (L/min) 2 Oxygen Delivery Method Nasal Cannula Weight: 123.6 kg Body Mass Index (BMI) 53.4 Intake & Output: Intake and Output for Last 24 Hours 03/18/25 03/19/25 03/20/25 23:59 23:59 23:59 Intake Total 640 / 700 360 / 360 662 / 662 Output Total 170 / 270 1410 / 1410 50 / 50 Balance 470 / 430 -1050 / -1050 612 / 612 Lab / Micro Data 03/20/25 04:43 03/20/25 04:43 Labs: Laboratory Results - last 24 hr 03/15/25 10:05: c-ANCA Antibody <1:20, Atypical p-ANCA <1:20, p-ANCA Antibody <1:20, Glomerular Base Memb Ab < 0.2, Complement C3 131, Complement C4 33 03/19/25 22:02: POC Glucose 101 03/20/25 04:43: WBC 10.1, RBC 4.28, Hgb 11.0 L, Hct 39.1, MCV 91.4, MCH 25.7 L, MCHC 28.1 L, RDW Std Deviation 57.3 H, RDW Coeff of Leif 17.2 H, Plt Count 188, MPV 9.2, Immature Gran % (Auto) 1.200 H, Neut % (Auto) 84.1 H, Lymph % (Auto) 6.4 L, [place] % (Auto) 7.7, Eos % (Auto) 0.3, Baso % (Auto) 0.3, Absolute Neuts (auto) 8.5 H, Absolute Lymphs (auto) 0.65 L, Nucleated RBC % 0.8, Sodium 137, Potassium 4.6, Chloride 102, Carbon Dioxide 20.3 L, Anion Gap 15, BUN 49 H, Creatinine 4.02 H, Estim Creat Clear Calc 14.87 L, Est GFR (MDRD) Non-Af 11 L, BUN/Creatinine Ratio 12.1, Glucose 79, Calcium 8.3 03/20/25 06:46: POC Glucose 80 03/20/25 12:37: POC Glucose 78 03/20/25 16:52: POC Glucose 151 H Micro: Microbiology 03/16/25 09:25 Wound - Toe Gram Stain - Final 03/16/25 09:25 Wound - Toe Wound Culture - Final Enterococcus casseliflavus (D) Enterococcus avium Gram positive [place] 03/19/25 12:50 Bone - Great Toe Gram Stain - Final 03/19/25 12:50 Wound - Aerobic Swab Gram Stain - Final 03/19/25 12:50 Wound - Aerobic Swab Wound Culture - Preliminary 03/14/25 18:00 Urine Catheter - Catheter Urine Culture - Final Culture exhibits no growth. Radiography Diagnostic Testing: Radiology Impression Renal Biopsy Ultrasound 03/20/25 09:35 IMPRESSION: Successful left inferior renal ultrasound guided core biopsy. Laboratory results pending. Reading Location: [place] [address] Physical Exam Narrative General: Alert, no apparent distress HEENT: Atraumatic, normocephalic Eyes: Anicteric, normal conjunctiva, extraocular movements grossly intact Neck: Supple Respiratory: Diminished bilaterally, normal respiratory effort Cardiovascular: Regular rate GI: Soft, nontender, is protuberant Extremities: Pitting edema virtually throughout Musculoskeletal: Moving all extremities Neuro: No overt focal neurological deficits Skin: No rashes appreciated, does have some serous weeping from kidney biopsy area Psych: Cooperative Assessment & Plan Assessment/Plan (1) Acute on chronic renal failure: QUALIFIERS: Acute renal failure type: unspecified Chronic kidney disease stage: stage 3 (moderate) Chronic kidney disease stage 3 subtype: stage 3a (GFR 45-59) Qualified Code(s): N17.9 - Acute kidney failure, unspecified; N18.31 - Chronic kidney disease, stage 3a PLAN: Tunneled dialysis cath placed 03/16. Now on HD nephrology following. will need Biopsy at at some point -03/20: Patient underwent kidney biopsy today, awaiting pathology, nephrology following, will likely have HD tomorrow (2) Congestive heart failure: QUALIFIERS: Heart failure type: systolic Heart failure chronicity: acute on chronic Qualified Code(s): I50.23 - Acute on chronic systolic (congestive) heart failure PLAN: acute HFrEF. EF 30% from echo on 12/12 Further fluid removal via dialysis. -03/20: Patient remains significantly edematous, suspect that the weeping serous fluid is due to her significant edema as there is no sanguinous drainage, no pain, erythema, irritation around the site patient denies any pain whatsoever, likely for dialysis tomorrow. Patient remains on 40 IV every 8 of Lasix (3) Right hallux osteomyelitis: PLAN: present on arrival. Patient underwent amputation on March 19. podiatry following on pip/tazo and vancomycin Wound culture from the second showed Enterococcus The Flava's and Enterococcus Avium As Well As a Gram-Positive [place]. Wound Cultures from March 19 Currently Pending. -03/20: Podiatry recommended heel weightbearing in surgical shoe assisted by walker of the right lower extremity with dressing changes once a week and outpatient follow-up in 1 week as well as ID consult for antibiotic management. ID evaluated, wound culture showed Enterococcus and gram-positive rods and she is now status post OR 03/19/[address] Coronado for distal right first toe amputation with surgical cultures pending, patient has been narrowed to Unasyn and will likely be able to DC on p.o. Augmentin given presumed source control PLAN: Plan Chronic conditions: DM2: SSI. hypothyroidism: levothyroxine obesity class III: complicates care and recovery. VTE prophylaxis: SQ heparin. Charges/Coding Visit Charges Inpatient E&M: 70348 Subs Hosp L2
[2025-03-20] MEDS: Atorvastatin Calcium 10 MG Tablet PO (22:21)
[2025-03-20] MEDS: Insulin Lispro 100 UNIT/ML INSULN.PEN SC (22:22)
[2025-03-20 23:40] LABS: Bedside Glucose 156 mg/dL (74-106)
[2025-03-21] VITALS (18 sets, daily range): BP systolic 97–236; BP diastolic 50–80; PULSE 61–73; RESP 14–18; TEMP 36.4–36.6; O2SAT 95–99; BMI 53.4; BMI 53.2
[2025-03-21] MEDS: Levothyroxine 100 MCG Tablet PO (06:19)
[2025-03-21] MEDS: Furosemide 40 MG/4 ML Vial IV ×3 (06:24→23:33)
[2025-03-21] MEDS: 0.9% Saline Lock 10 ML Syringe IV ×3 (06:24→23:32)
[2025-03-21 06:47] LABS: Hematocrit 35.8 % (37-47); Hemoglobin 10.1 g/dL (12.0-15.0); Mean Corp Hgb Conc 28.2 g/dL (32-36); Mean Corpuscular Hgb 25.6 pg (27.0-32.0); Mean Corpuscular Volume 90.9 fL (81-99); Mean Platelet Vol. 10.1 fl (6.2-12.0); Platelet Count 165 K/mm3 (150-450); RBC Distribution Width CV 17.1 % (11.6-14.6); RBC Distribution Width SD 56.5 fl (35.1-43.9); Red Blood Count 3.94 M/mm3 (4.2-5.4); White Blood Count 8.3 K/mm3 (4.4-11.0)
[2025-03-21 06:51] LABS: Bedside Glucose 109 mg/dL (74-106)
[2025-03-21 07:11] LABS: Anion Gap 14 (5-15); BUN 55 mg/dL (4-19); Calcium,Total 7.9 mg/dL (7.6-11.0); Carbon Dioxide 18.5 mmol/L (21.0-32.0); Chloride 103 mmol/L (98-108); Creatinine, Serum 4.94 mg/dL (0.70-1.20); EST Glomerular Filtration Rate 9 (>60); Glucose 109 mg/dL (70-99); Potassium 4.7 mmol/L (3.3-5.1); Sodium Level 136 mmol/L (133-145)
--- NOTE | 2025-03-21 08:08 | PN.HOSP_ITS ---
Reason for Visit Reason for Visit: Diagnoses Type 2 diabetes mellitus with diabetic polyneuropathy (03/13/25) Hyperkalemia (03/13/25) Essential (primary) hypertension (03/13/25) Pulmonary hypertension, unspecified (03/13/25) Nonrheumatic aortic (valve) stenosis (03/13/25) Acute on chronic systolic (congestive) heart failure (03/13/25) Non-pressure chronic ulcer of other part of right foot with necrosis of bone (03/13/25) Other acute osteomyelitis, right ankle and foot (03/13/25) Osteomyelitis, unspecified (03/13/25) Acute kidney failure, unspecified (03/13/25) Chronic kidney disease, stage 3a (03/13/25) Chronic kidney disease, stage 3b (03/13/25) Chronic kidney disease, unspecified (03/13/25) half-way (current) use of insulin (03/13/25) Subjective Subjective Tolerating dialysis. Objective Data Objective Data Vital Signs: Vital Signs Temp Pulse Resp BP Pulse Ox O2 Del Method O2 Flow Rate 36.4 C L 71 18 107/55 L 96 Nasal Cannula 3 03/21/25 06:15 03/21/25 06:15 03/21/25 06:15 03/21/25 06:15 03/21/25 07:36 03/21/25 07:36 03/21/25 07:36 Oxygen Flow Rate (L/min) 3 Oxygen Delivery Method Nasal Cannula Weight: 123.5 kg Body Mass Index (BMI) 53.4 Intake & Output: Intake and Output for Last 24 Hours 03/19/25 03/20/25 03/21/25 23:59 23:59 23:59 Intake Total 360 / 360 662 / 862 200 / 200 Output Total 1410 / 1410 50 / 100 50 / 50 Balance -1050 / -1050 612 / 762 150 / 150 Lab / Micro Data 03/21/25 05:33 03/21/25 05:33 Labs: Laboratory Results - last 24 hr 03/20/25 12:37: POC Glucose 78 03/20/25 16:52: POC Glucose 151 H 03/20/25 22:00: POC Glucose 156 H 03/21/25 05:33: WBC 8.3, RBC 3.94 L, Hgb 10.1 L, Hct 35.8 L, MCV 90.9, MCH 25.6 L, MCHC 28.2 L, RDW Std Deviation 56.5 H, RDW Coeff of Leif 17.1 H, Plt Count 165, MPV 10.1, Sodium 136, Potassium 4.7, Chloride 103, Carbon Dioxide 18.5 L, Anion Gap 14, BUN 55 H, Creatinine 4.94 H, Estim Creat Clear Calc 12.10 L, Est GFR (MDRD) Non-Af 9 L, BUN/Creatinine Ratio 11.0, Glucose 109 H, Calcium 7.9 03/21/25 06:23: POC Glucose 109 H Micro: Microbiology 03/16/25 09:25 Wound - Toe Gram Stain - Final 03/16/25 09:25 Wound - Toe Wound Culture - Final Enterococcus casseliflavus (D) Enterococcus avium Gram positive clinton 03/19/25 12:50 Bone - Great Toe Gram Stain - Final 03/19/25 12:50 Wound - Aerobic Swab Gram Stain - Final 03/19/25 12:50 Wound - Aerobic Swab Wound Culture - Preliminary 03/14/25 18:00 Urine Catheter - Catheter Urine Culture - Final Culture exhibits no growth. Radiography Diagnostic Testing: Radiology Impression Renal Biopsy Ultrasound 03/20/25 09:35 IMPRESSION: Successful left inferior renal ultrasound guided core biopsy. Laboratory results pending. Reading Location: [place] [address] Physical Exam Const alert and no apparent distress HEENT head/scalp atraumatic and moist oral mucous membranes Resp normal respiratory effort, no retractions, no use of accessory muscles and clear to auscultation bilaterally Cardio regular rate, regular rhythm and S1 normal heart sound GI normal to inspection, nondistended, normoactive bowel sounds, soft to palpation, non-tender and non-distended Extremity General Extremity: edema bilateral lower extremity Details: severe Skin Skin Narrative: ecchymosis on bilateral anterior shoulders. Assessment & Plan Assessment/Plan (1) Acute on chronic renal failure: QUALIFIERS: Acute renal failure type: unspecified Chronic kidney disease stage: stage 3 (moderate) Chronic kidney disease stage 3 subtype: stage 3a (GFR 45-59) Qualified Code(s): N17.9 - Acute kidney failure, unspecified; N18.31 - Chronic kidney disease, stage 3a PLAN: Tunneled dialysis cath placed 03/16. Now on HD nephrology following. will need Biopsy at at some point (2) Congestive heart failure: QUALIFIERS: Heart failure chronicity: acute on chronic Heart failure type: systolic Qualified Code(s): I50.23 - Acute on chronic systolic (congestive) heart failure PLAN: acute HFrEF. EF 30% from echo on 12/12 Further fluid removal via dialysis. (3) Right hallux osteomyelitis: PLAN: present on arrival. Patient underwent amputation on March 19. podiatry following on Amp/SB. Seen by ID and recommended 1 week amox/CA 250 BID. Wound culture from the second showed Enterococcus and Enterococcus Avium As Well As a Gram-Positive Clinton. Wound Cultures from March 19 Currently Pending. PLAN: Plan Chronic conditions: * DM2: SSI. * hypothyroidism: levothyroxine * obesity class III: complicates care and recovery. VTE prophylaxis: SQ heparin. Disposition: to SNF. Charges/Coding Visit Charges Inpatient E&M: 48256 Subs Hosp L2
[2025-03-21] MEDS: Midodrine HCl 5 MG Tablet 10 MG PO (09:36)
[2025-03-21] MEDS: 0.9% Normal Saline 1,000 ML IV.SOLN. 1000 ML OPERA.SITE (09:36)
[2025-03-21] MEDS: PureFlow B 2K Dialysis Soln 1 BAG 6 BAG PF (09:36)
[2025-03-21] MEDS: Heparin 10,000 UNITS/10 ML Vial IV (09:37)
[2025-03-21 09:44] LABS: Bedside Glucose 96 mg/dL (74-106)
[2025-03-21 13:55] LABS: Bedside Glucose 94 mg/dL (74-106)
--- NOTE | 2025-03-21 14:19 | CASEMGMT ---
SHON DILL in to discuss discharge planning with patient and . states they reviewed SNF list and prefer 1. [facility] 2. [facility] 3. [facility]. Patient and had no further questions or concerns. SHON DILL updated discharge assistant golf course superintendent to send referral to [facility]. CM will continue to follow this patient to plan for a safe discharge.
--- NOTE | 2025-03-21 14:45 | CASEMGMT ---
Addendum entered by Yeimi Drake 03/22/25 15:06: [facility] has submitted for precert. Yeimi Drake DC Planning Asst. Addendum entered by Yeimi Drake 03/22/25 10:29: [facility] will hold off on precert until they are further along in dialysis set up process. SW updated. Yeimi Drake DC Planning Asst. Addendum entered by Yeimi Drake 03/22/25 09:59: Updates sent with request to submit for precert. Yeimi Drake DC Planning Asst. Addendum entered by Yeimi Drake 03/22/25 09:49: [facility] has accepted. They will begin process of setting up in-house dialysis with [facility]. SW updated. Yeimi Drake DC Planning Asst. Original Note: Discharge Planning Referral sent to [facility]. Yeimi Drake DC Planning Asst.
[2025-03-21] MEDS: Aspirin 81 MG TAB.CHEW PO (15:28)
[2025-03-21] MEDS: Carvedilol 6.25 MG Tablet PO (15:28)
[2025-03-21] MEDS: Heparin Injection (Vial) 5,000 UNIT/ML VIAL 5000 UNIT SC ×2 (15:29→23:33)
[2025-03-21] MEDS: Nystatin Powder 15gm Bottle 1 APPLIC TOPICAL ×2 (15:29→23:33)
--- NOTE | 2025-03-21 18:10 | PN.RENAL_ITS ---
Subjective Subjective seen on HD today Objective Data Objective Data Vital Signs: Vital Signs Temp Pulse Resp BP Pulse Ox O2 Del Method O2 Flow Rate 97.8 F 62 16 107/52 L 98 Nasal Cannula 3 03/21/25 14:00 03/21/25 14:00 03/21/25 14:00 03/21/25 14:00 03/21/25 14:00 03/21/25 14:00 03/21/25 14:00 Oxygen Flow Rate (L/min) 3 Oxygen Delivery Method Nasal Cannula Weight: 123.065 kg Body Mass Index (BMI) 53.2 Intake & Output: Intake and Output for Last 24 Hours 03/19/25 03/20/25 03/21/25 23:59 23:59 23:59 Intake Total 360 / 360 662 / 862 200 / 200 Output Total 1410 / 1410 50 / 100 5220 / 5220 Balance -1050 / -1050 612 / 762 -5020 / -5020 Lab / Micro Data 03/21/25 05:33 03/21/25 05:33 Labs: Laboratory Results - last 24 hr 03/20/25 22:00: POC Glucose 156 H 03/21/25 05:33: WBC 8.3, RBC 3.94 L, Hgb 10.1 L, Hct 35.8 L, MCV 90.9, MCH 25.6 L, MCHC 28.2 L, RDW Std Deviation 56.5 H, RDW Coeff of Leif 17.1 H, Plt Count 165, MPV 10.1, Sodium 136, Potassium 4.7, Chloride 103, Carbon Dioxide 18.5 L, Anion Gap 14, BUN 55 H, Creatinine 4.94 H, Estim Creat Clear Calc 12.10 L, Est GFR (MDRD) Non-Af 9 L, BUN/Creatinine Ratio 11.0, Glucose 109 H, Calcium 7.9 03/21/25 06:23: POC Glucose 109 H 03/21/25 09:24: POC Glucose 96 03/21/25 13:37: POC Glucose 94 Micro: Microbiology 03/19/25 12:50 Wound - Aerobic Swab Gram Stain - Final 03/19/25 12:50 Wound - Aerobic Swab Wound Culture - Preliminary Gram Positive Cocci 03/19/25 12:50 Wound - Aerobic Swab Anaerobic Culture - Preliminary 03/19/25 12:50 Bone - Great Toe Gram Stain - Final 03/19/25 12:50 Bone - Great Toe Wound Culture - Preliminary 03/16/25 09:25 Wound - Toe Gram Stain - Final 03/16/25 09:25 Wound - Toe Wound Culture - Final Enterococcus casseliflavus (D) Enterococcus avium Gram positive ana laura 03/14/25 18:00 Urine Catheter - Catheter Urine Culture - Final Culture exhibits no growth. Physical Exam Narrative Alert and oriented x 3, no apparent distress S1, S2, RRR Diminished breath sounds Abdomen soft, nontender Edema bilateral lower legs Tunneled hemodialysis catheter dressing C/D/I; accessed for hemodialysis Const alert, oriented x3 and no apparent distress Nutritional Appearance: morbidly obese HEENT normocephalic Neck no lymphadenopathy Resp no use of accessory muscles Auscultation: diminished lung sounds Cardio no murmurs GI non-tender and non-distended Auscultation: normoactive bowel sounds Assessment & Plan Assessment/Plan (1) Acute on chronic renal failure: QUALIFIERS: Acute renal failure type: unspecified Chronic kidney disease stage: stage 3 (moderate) Chronic kidney disease stage 3 subtype: stage 3a (GFR 45-59) Qualified Code(s): N17.9 - Acute kidney failure, unspecified; N18.31 - Chronic kidney disease, stage 3a PLAN: JOSUE superimposed on CKD stage IIIb. Baseline creatinine around 1.7 mg/dL as of December 2024. Renal ultrasound no hydronephrosis. serologies negative called and spoke to pathology at [facility]. mostly ATN. IF negative. no profileration. admit to [facility] as JOSUE placement in progress HD today see orders
[2025-03-21] MEDS: Ampicillin/Sulbactam 3 GM in 0.9% Normal Saline (100mL MB+) 100 ML IV (18:59)
[2025-03-21 19:35] LABS: Bedside Glucose 120 mg/dL (74-106)
[2025-03-21] MEDS: Atorvastatin Calcium 10 MG Tablet PO (23:33)
[2025-03-22 00:04] LABS: Bedside Glucose 105 mg/dL (74-106)
[2025-03-22 04:06] VITALS: BP 105/67; PULSE 67; RESP 18; TEMP 36.6; O2SAT 94
[2025-03-22 06:00] VITALS: BMI 53.2
[2025-03-22] MEDS: Levothyroxine 100 MCG Tablet PO (06:41)
[2025-03-22] MEDS: Furosemide 40 MG/4 ML Vial IV ×3 (06:43→20:16)
[2025-03-22] MEDS: 0.9% Saline Lock 10 ML Syringe IV ×2 (06:43→20:16)
[2025-03-22 07:07] LABS: Bedside Glucose 96 mg/dL (74-106)
[2025-03-22 07:07] LABS: Hematocrit 36.4 % (37-47); Hemoglobin 10.3 g/dL (12.0-15.0); Mean Corp Hgb Conc 28.3 g/dL (32-36); Mean Corpuscular Hgb 25.5 pg (27.0-32.0); Mean Corpuscular Volume 90.1 fL (81-99); Mean Platelet Vol. 9.6 fl (6.2-12.0); Platelet Count 169 K/mm3 (150-450); RBC Distribution Width CV 17.1 % (11.6-14.6); RBC Distribution Width SD 56.2 fl (35.1-43.9); Red Blood Count 4.04 M/mm3 (4.2-5.4); White Blood Count 8.4 K/mm3 (4.4-11.0)
[2025-03-22 07:36] LABS: Anion Gap 11 (5-15); BUN 40 mg/dL (4-19); BUN/Creat Ratio 9.7 RATIO (10-20); Calcium,Total 8.1 mg/dL (7.6-11.0); Carbon Dioxide 22.9 mmol/L (21.0-32.0); Chloride 102 mmol/L (98-108); Creatinine, Serum 4.13 mg/dL (0.70-1.20); EST Glomerular Filtration Rate 11 (>60); Estimated Creatinine Clearance 14.44 ml/min (50-250); Glucose 87 mg/dL (70-99); Potassium 4.2 mmol/L (3.3-5.1); Sodium Level 136 mmol/L (133-145)
[2025-03-22 07:40] VITALS: O2SAT 97
--- NOTE | 2025-03-22 08:28 | PN.HOSP_ITS ---
Reason for Visit Reason for Visit: Diagnoses Type 2 diabetes mellitus with diabetic polyneuropathy (03/13/25) Hyperkalemia (03/13/25) Essential (primary) hypertension (03/13/25) Pulmonary hypertension, unspecified (03/13/25) Nonrheumatic aortic (valve) stenosis (03/13/25) Acute on chronic systolic (congestive) heart failure (03/13/25) Non-pressure chronic ulcer of other part of right foot with necrosis of bone (03/13/25) Other acute osteomyelitis, right ankle and foot (03/13/25) Osteomyelitis, unspecified (03/13/25) Acute kidney failure, unspecified (03/13/25) Chronic kidney disease, stage 3a (03/13/25) Chronic kidney disease, stage 3b (03/13/25) Chronic kidney disease, unspecified (03/13/25) retirement (current) use of insulin (03/13/25) Subjective Subjective Feeling well. Still with LE edema. Objective Data Objective Data Vital Signs: Vital Signs Temp Pulse Resp BP Pulse Ox O2 Del Method O2 Flow Rate 36.6 C 67 18 105/67 94 Nasal Cannula 3 03/22/25 04:06 03/22/25 04:06 03/22/25 04:06 03/22/25 04:06 03/22/25 04:06 03/22/25 04:06 03/22/25 04:06 Oxygen Flow Rate (L/min) 3 Oxygen Delivery Method Nasal Cannula Weight: 123.06 kg Body Mass Index (BMI) 53.2 Intake & Output: Intake and Output for Last 24 Hours 03/20/25 03/21/25 03/22/25 23:59 23:59 23:59 Intake Total 662 / 862 312 / 312 Output Total 50 / 100 5220 / 5320 100 / 100 Balance 612 / 762 -4908 / -5008 -100 / -100 Lab / Micro Data 03/22/25 06:50 03/22/25 06:50 Labs: Laboratory Results - last 24 hr 03/21/25 09:24: POC Glucose 96 03/21/25 13:37: POC Glucose 94 03/21/25 19:04: POC Glucose 120 H 03/21/25 23:31: POC Glucose 105 03/22/25 06:39: POC Glucose 96 03/22/25 06:50: WBC 8.4, RBC 4.04 L, Hgb 10.3 L, Hct 36.4 L, MCV 90.1, MCH 25.5 L, MCHC 28.3 L, RDW Std Deviation 56.2 H, RDW Coeff of Leif 17.1 H, Plt Count 169, MPV 9.6, Sodium 136, Potassium 4.2, Chloride 102, Carbon Dioxide 22.9, Anion Gap 11, BUN 40 H, Creatinine 4.13 H, Estim Creat Clear Calc 14.44 L, Est GFR (MDRD) Non-Af 11 L, BUN/Creatinine Ratio 9.7 L, Glucose 87, Calcium 8.1 Micro: Microbiology 03/19/25 12:50 Wound - Aerobic Swab Gram Stain - Final 03/19/25 12:50 Wound - Aerobic Swab Wound Culture - Preliminary Gram Positive Cocci 03/19/25 12:50 Wound - Aerobic Swab Anaerobic Culture - Preliminary 03/19/25 12:50 Bone - Great Toe Gram Stain - Final 03/19/25 12:50 Bone - Great Toe Wound Culture - Preliminary 03/16/25 09:25 Wound - Toe Gram Stain - Final 03/16/25 09:25 Wound - Toe Wound Culture - Final Enterococcus casseliflavus (D) Enterococcus avium Gram positive clinton 03/14/25 18:00 Urine Catheter - Catheter Urine Culture - Final Culture exhibits no growth. Physical Exam Const alert and no apparent distress Constitutional Narrative: up in chair. NAD. HEENT head/scalp atraumatic and moist oral mucous membranes Resp normal respiratory effort, no retractions, no use of accessory muscles and clear to auscultation bilaterally Cardio regular rate, regular rhythm, S1 normal heart sound and S2 normal heart sound GI normal to inspection, nondistended, normoactive bowel sounds, soft to palpation, non-tender and non-distended Extremity normal to inspection Skin Skin Narrative: bruising anterior shoulder with right extending posteriorly. Neuro Sensorium / Orientation: awake and alert Assessment & Plan Assessment/Plan (1) Acute on chronic renal failure: QUALIFIERS: Acute renal failure type: unspecified Chronic kidney disease stage: stage 3 (moderate) Chronic kidney disease stage 3 subtype: stage 3a (GFR 45-59) Qualified Code(s): N17.9 - Acute kidney failure, unspecified; N18.31 - Chronic kidney disease, stage 3a PLAN: Tunneled dialysis cath placed 03/16. Now on HD nephrology following. kidney biopsy performed. DW Dr. Gupta, preliminary looks like ATN. (2) Congestive heart failure: QUALIFIERS: Heart failure chronicity: acute on chronic Heart failure type: systolic Qualified Code(s): I50.23 - Acute on chronic systolic (congestive) heart failure PLAN: acute HFrEF. EF 30% from echo on 12/12 Further fluid removal via dialysis. (3) Right hallux osteomyelitis: PLAN: present on arrival. Patient underwent amputation on March 19. podiatry following on Amp/SB. Seen by ID and recommended 1 week amox/CA 250 BID. Wound culture from the second showed Enterococcus and Enterococcus Avium As Well As a Gram-Positive Clinton. Wound Cultures from March 19 Currently Pending. (4) Ecchymosis: PLAN: unclear etiology. Hemoglobin stable. Monitor. Pt denies antecedent trauma. PLAN: Plan Chronic conditions: * DM2: SSI. * hypothyroidism: levothyroxine * obesity class III: complicates care and recovery. VTE prophylaxis: SQ heparin. Disposition: to SNF. Charges/Coding Visit Charges Inpatient E&M: 62185 Subs Hosp L2
[2025-03-22 09:00] VITALS: BP 126/75; PULSE 73; RESP 16; TEMP 36.4; O2SAT 93
[2025-03-22] MEDS: Carvedilol 6.25 MG Tablet PO ×2 (09:34→17:48)
[2025-03-22] MEDS: Heparin Injection (Vial) 5,000 UNIT/ML VIAL 5000 UNIT SC ×2 (09:34→20:15)
[2025-03-22] MEDS: Aspirin 81 MG TAB.CHEW PO (09:34)
--- NOTE | 2025-03-22 10:51 | PN.ID_ITS ---
Physical Exam Narrative Feeling ok, no fever, pain controlled, no n/v/d. Const alert and no apparent distress General Appearance: cooperative Resp normal air movement and clear to auscultation bilaterally Cardio regular rate and regular rhythm GI soft to palpation, non-tender and non-distended Skin Skin Narrative: no new rash ID ID: Route of nutrition/ use of supplements: [] Nutritional Intake: [] IV Site: [] [place] Catheter: [] Assessment & Plan Assessment/Plan (1) Right hallux osteomyelitis: PLAN: Wound cx with enterococcus x2, GPR. Now s/p OR 03/19/[address] Coronado for distal r 1st toe amputation. Surg cx now with GPC, staph aureus, MRSE, enterococcus, and GPR. On unasyn. Will add po doxy. Plan is 6 weeks po doxy and augmentin at discharge. 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
[2025-03-22] MEDS: Doxycycline 100 MG CAPSULE PO ×2 (11:27→20:13)
--- NOTE | 2025-03-22 11:51 | CASEMGMT ---
Discharge Planning Both pt and her updated of acceptance at [facility]. Pts husbands phone number updated in [facility]. Yeimi Drake DC Planning Asst.
[2025-03-22 11:59] LABS: Bedside Glucose 137 mg/dL (74-106)
--- NOTE | 2025-03-22 13:14 | PN.RENAL_ITS ---
Subjective Subjective no new events Objective Data Objective Data Vital Signs: Vital Signs Temp Pulse Resp BP Pulse Ox O2 Del Method O2 Flow Rate 97.5 F L 73 16 126/75 H 93 Nasal Cannula 3 03/22/25 09:00 03/22/25 09:00 03/22/25 09:00 03/22/25 09:00 03/22/25 09:00 03/22/25 10:00 03/22/25 10:00 Oxygen Flow Rate (L/min) 3 Oxygen Delivery Method Nasal Cannula Weight: 123.06 kg Body Mass Index (BMI) 53.2 Intake & Output: Intake and Output for Last 24 Hours 03/20/25 03/21/25 03/22/25 23:59 23:59 23:59 Intake Total 662 / 862 312 / 312 Output Total 50 / 100 5220 / 5320 100 / 100 Balance 612 / 762 -4908 / -5008 -100 / -100 Lab / Micro Data 03/22/25 06:50 03/22/25 06:50 Labs: Laboratory Results - last 24 hr 03/21/25 13:37: POC Glucose 94 03/21/25 19:04: POC Glucose 120 H 03/21/25 23:31: POC Glucose 105 03/22/25 06:39: POC Glucose 96 03/22/25 06:50: WBC 8.4, RBC 4.04 L, Hgb 10.3 L, Hct 36.4 L, MCV 90.1, MCH 25.5 L, MCHC 28.3 L, RDW Std Deviation 56.2 H, RDW Coeff of Leif 17.1 H, Plt Count 169, MPV 9.6, Sodium 136, Potassium 4.2, Chloride 102, Carbon Dioxide 22.9, Anion Gap 11, BUN 40 H, Creatinine 4.13 H, Estim Creat Clear Calc 14.44 L, Est GFR (MDRD) Non-Af 11 L, BUN/Creatinine Ratio 9.7 L, Glucose 87, Calcium 8.1 03/22/25 11:24: POC Glucose 137 H Micro: Microbiology 03/19/25 12:50 Bone - Great Toe Gram Stain - Final 03/19/25 12:50 Bone - Great Toe Wound Culture - Preliminary Gram Positive Cocci Staphylococcus aureus GPC Poss Enterococcus sp Gram positive ana laura 03/19/25 12:50 Bone - Great Toe Anaerobic Culture - Preliminary 03/19/25 12:50 Wound - Aerobic Swab Gram Stain - Final 03/19/25 12:50 Wound - Aerobic Swab Wound Culture - Preliminary Staphylococcus epidermidis Staphylococcus aureus GPC Poss Enterococcus sp 03/16/25 09:25 Wound - Toe Gram Stain - Final 03/16/25 09:25 Wound - Toe Wound Culture - Final Enterococcus casseliflavus (D) Enterococcus avium Gram positive ana laura 03/14/25 18:00 Urine Catheter - Catheter Urine Culture - Final Culture exhibits no growth. Physical Exam Narrative Alert and oriented x 3, no apparent distress S1, S2, RRR Diminished breath sounds Abdomen soft, nontender Edema bilateral lower legs Tunneled hemodialysis catheter dressing C/D/I; accessed for hemodialysis Const alert, oriented x3 and no apparent distress Nutritional Appearance: morbidly obese HEENT normocephalic Neck no lymphadenopathy Resp no use of accessory muscles Auscultation: diminished lung sounds Cardio no murmurs GI non-tender and non-distended Auscultation: normoactive bowel sounds Assessment & Plan Assessment/Plan (1) Acute on chronic renal failure: QUALIFIERS: Acute renal failure type: unspecified Chronic kidney disease stage: stage 3 (moderate) Chronic kidney disease stage 3 subtype: stage 3a (GFR 45-59) Qualified Code(s): N17.9 - Acute kidney failure, unspecified; N18.31 - Chronic kidney disease, stage 3a PLAN: JOSUE superimposed on CKD stage IIIb. Baseline creatinine around 1.7 mg/dL as of December 2024. Renal ultrasound no hydronephrosis. serologies negative called and spoke to pathology at [facility]. mostly ATN. IF negative. no profileration. HD MWF schedule for now she says she is not making much urine HD tomorrow dc plans
[2025-03-22 14:35] VITALS: BP 100/54; PULSE 58; RESP 16; TEMP 36.4; O2SAT 100
--- NOTE | 2025-03-22 16:04 | CASEMGMT ---
JESE sent labs and dialysis run sheets to [facility] per their request. Love LOCKE
[2025-03-22] MEDS: Ampicillin/Sulbactam 3 GM in 0.9% Normal Saline (100mL MB+) 100 ML IV (17:44)
[2025-03-22 17:58] LABS: Bedside Glucose 136 mg/dL (74-106)
[2025-03-22 20:00] VITALS: BP 111/57; PULSE 61; RESP 18; TEMP 36.9; O2SAT 96
[2025-03-22] MEDS: Atorvastatin Calcium 10 MG Tablet PO (20:13)
[2025-03-22] MEDS: Insulin Lispro 100 UNIT/ML INSULN.PEN SC (20:15)
[2025-03-22 20:39] LABS: Bedside Glucose 182 mg/dL (74-106)
[2025-03-22] MEDS: Nystatin Powder 15gm Bottle 1 APPLIC TOPICAL (21:31)
[2025-03-23] VITALS (12 sets, daily range): BP systolic 99–197; BP diastolic 52–100; PULSE 60–69; RESP 16–20; TEMP 36.1–36.8; O2SAT 95–99; BMI 50.7; BMI 49.2
[2025-03-23 05:50] LABS: Hematocrit 34.2 % (37-47); Hemoglobin 9.8 g/dL (12.0-15.0); Mean Corp Hgb Conc 28.7 g/dL (32-36); Mean Corpuscular Volume 90.7 fL (81-99); Mean Platelet Vol. 10.2 fl (6.2-12.0); Platelet Count 182 K/mm3 (150-450); RBC Distribution Width CV 17.2 % (11.6-14.6); RBC Distribution Width SD 57.6 fl (35.1-43.9); Red Blood Count 3.77 M/mm3 (4.2-5.4); White Blood Count 7.5 K/mm3 (4.4-11.0)
[2025-03-23] MEDS: Furosemide 40 MG/4 ML Vial IV (06:06)
[2025-03-23] MEDS: Levothyroxine 100 MCG Tablet PO (06:06)
[2025-03-23 06:23] LABS: Anion Gap 12 (5-15); BUN 48 mg/dL (4-19); BUN/Creat Ratio 10.1 RATIO (10-20); Carbon Dioxide 21.2 mmol/L (21.0-32.0); Chloride 102 mmol/L (98-108); Creatinine, Serum 4.76 mg/dL (0.70-1.20); EST Glomerular Filtration Rate 9 (>60); Estimated Creatinine Clearance 12.14 ml/min (50-250); Glucose 130 mg/dL (70-99); Sodium Level 135 mmol/L (133-145)
[2025-03-23 06:27] LABS: Bedside Glucose 119 mg/dL (74-106)
[2025-03-23] MEDS: Midodrine HCl 5 MG Tablet 10 MG PO (07:18)
[2025-03-23] MEDS: PureFlow B 2K Dialysis Soln 1 BAG 6 BAG PF (07:21)
[2025-03-23] MEDS: 0.9% Normal Saline 1,000 ML IV.SOLN. 1000 ML OPERA.SITE (07:22)
[2025-03-23] MEDS: Heparin 10,000 UNITS/10 ML Vial IV (07:35)
--- NOTE | 2025-03-23 07:40 | PCM.PN.HOSP ---
Reason for Visit Reason for Visit: Diagnoses Type 2 diabetes mellitus with diabetic polyneuropathy (03/13/25) Hyperkalemia (03/13/25) Essential (primary) hypertension (03/13/25) Pulmonary hypertension, unspecified (03/13/25) Nonrheumatic aortic (valve) stenosis (03/13/25) Acute on chronic systolic (congestive) heart failure (03/13/25) Non-pressure chronic ulcer of other part of right foot with necrosis of bone (03/13/25) Other acute osteomyelitis, right ankle and foot (03/13/25) Osteomyelitis, unspecified (03/13/25) Acute kidney failure, unspecified (03/13/25) Chronic kidney disease, stage 3a (03/13/25) Chronic kidney disease, stage 3b (03/13/25) Chronic kidney disease, unspecified (03/13/25) Hemorrhage, not elsewhere classified (03/13/25) 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 Objective Data Objective Data Vital Signs: Vital Signs Temp Pulse Resp BP Pulse Ox O2 Del Method O2 Flow Rate 36.8 C 60 20 H 107/64 99 Nasal Cannula 2 03/23/25 07:00 03/23/25 07:00 03/23/25 07:00 03/23/25 07:00 03/23/25 07:00 03/23/25 07:00 03/23/25 07:00 Oxygen Flow Rate (L/min) 2 Oxygen Delivery Method Nasal Cannula Weight: 117.2 kg Body Mass Index (BMI) 50.7 Intake & Output: Intake and Output for Last 24 Hours 03/21/25 03/22/25 03/23/25 23:59 23:59 23:59 Intake Total 312 / 312 512 / 512 Output Total 5220 / 5320 150 / 150 Balance -4908 / -5008 362 / 362 Lab / Micro Data 03/23/25 04:42 03/23/25 04:42 Labs: Laboratory Results - last 24 hr 03/22/25 11:24: POC Glucose 137 H 03/22/25 17:39: POC Glucose 136 H 03/22/25 20:12: POC Glucose 182 H 03/23/25 04:42: WBC 7.5, RBC 3.77 L, Hgb 9.8 L, Hct 34.2 L, MCV 90.7, MCH 26.0 L, MCHC 28.7 L, RDW Std Deviation 57.6 H, RDW Coeff of Leif 17.2 H, Plt Count 182, MPV 10.2, Sodium 135, Potassium 4.0, Chloride 102, Carbon Dioxide 21.2, Anion Gap 12, BUN 48 H, Creatinine 4.76 H, Estim Creat Clear Calc 12.14 L, Est GFR (MDRD) Non-Af 9 L, BUN/Creatinine Ratio 10.1, Glucose 130 H, Calcium 8.0 03/23/25 06:05: POC Glucose 119 H Micro: Microbiology 03/19/25 12:50 Bone - Great Toe Gram Stain - Final 03/19/25 12:50 Bone - Great Toe Wound Culture - Preliminary Gram Positive Cocci Staphylococcus aureus GPC Poss Enterococcus sp Gram positive clinton 03/19/25 12:50 Bone - Great Toe Anaerobic Culture - Preliminary 03/19/25 12:50 Wound - Aerobic Swab Gram Stain - Final 03/19/25 12:50 Wound - Aerobic Swab Wound Culture - Preliminary Staphylococcus epidermidis Staphylococcus aureus GPC Poss Enterococcus sp 03/16/25 09:25 Wound - Toe Gram Stain - Final 03/16/25 09:25 Wound - Toe Wound Culture - Final Enterococcus casseliflavus (D) Enterococcus avium Gram positive clinton 03/14/25 18:00 Urine Catheter - Catheter Urine Culture - Final Culture exhibits no growth. Physical Exam Const alert and no apparent distress Constitutional Narrative: seen on HD. Resp normal respiratory effort, no retractions, no use of accessory muscles and clear to auscultation bilaterally Cardio regular rate, regular rhythm, S1 normal heart sound and S2 normal heart sound GI normal to inspection, nondistended, normoactive bowel sounds, soft to palpation and non-tender GI Narrative: abdominal wall edema. Extremity General Extremity: edema bilateral lower extremity Details: severe Neuro Sensorium / Orientation: awake and alert Assessment & Plan Assessment/Plan (1) Acute on chronic renal failure: QUALIFIERS: Acute renal failure type: unspecified Chronic kidney disease stage: stage 3 (moderate) Chronic kidney disease stage 3 subtype: stage 3a (GFR 45-59) Qualified Code(s): N17.9 - Acute kidney failure, unspecified; N18.31 - Chronic kidney disease, stage 3a PLAN: Tunneled dialysis cath placed 03/16. Now on HD nephrology following. kidney biopsy performed. DW Dr. Gupta, preliminary looks like ATN. (2) Congestive heart failure: QUALIFIERS: Heart failure chronicity: acute on chronic Heart failure type: systolic Qualified Code(s): I50.23 - Acute on chronic systolic (congestive) heart failure PLAN: acute HFrEF. EF 30% from echo on 12/12 Further fluid removal via dialysis. (3) Right hallux osteomyelitis: PLAN: present on arrival. Patient underwent amputation on March 19. podiatry following on Amp/SB. Seen by ID and recommended 1 week amox/CA 250 BID. Wound culture from the second showed Enterococcus and Enterococcus Avium As Well As a Gram-Positive Clinton. Wound Cultures from March 19 Currently Pending. (4) Ecchymosis: PLAN: unclear etiology. Hemoglobin stable. Monitor. Pt denies antecedent trauma. PLAN: Plan Chronic conditions: DM2: SSI. hypothyroidism: levothyroxine obesity class III: complicates care and recovery. VTE prophylaxis: SQ heparin. Disposition: to SNF.
--- NOTE | 2025-03-23 07:41 | CASEMGMT ---
Patient was approved to go to [facility]. SW will notify physician. Plan: d/c to [facility] under skilled level of care. Love LOCKE
--- NOTE | 2025-03-23 11:17 | TREXTCAR_ITS ---
Diet Diet Order/Speech Therapy: 03/20/25 11:27 Diet: Renal - General Dietary Modifications:: Consistent Carbohydrate Type of Dietary Supplement:: Cornell Diet Comments: Cornell with breakfast and dinner Routine Orders/Code Status Routine Lab Work: CBC (weekly) and BMP (weekly) Code Status: Full Code DC O2, CPAP, BIPAP needs Home O2 Discharge instructions: Yes Type of respiratory needs?: Oxygen Oxygen frequency: Continuous Continuous oxygen liters per minute: 2 Wound(s) Right Great Toe: Wound Type: s/p amputation right hallux Dressing Change: betadine Adaptic Left 2nd toe: Wound Type: small scab right chest: Wound Type: dialysis catheter RIGHT FOOT: Wound Type: Surgical Incision L abdomen: Wound Type: Puncture Problem/Diagnosis (1) Acute on chronic renal failure: Status: Chronic Code(s): N17.9 - Acute kidney failure, unspecified; N18.9 - Chronic kidney disease, unspecified Plan: Tunneled dialysis cath placed 03/16. Now on HD nephrology following. kidney biopsy performed. DW Dr. Gupta, preliminary looks like ATN. (2) Congestive heart failure: Status: Acute Code(s): I50.9 - Heart failure, unspecified Plan: acute HFrEF. EF 30% from echo on 12/12 Further fluid removal via dialysis. (3) Right hallux osteomyelitis: Status: Acute Code(s): M86.9 - Osteomyelitis, unspecified Plan: present on arrival. Patient underwent amputation on March 19. podiatry following on Amp/SB. Seen by ID and recommended 1 week amox/CA 250 BID. Wound culture from the second showed Enterococcus and Enterococcus Avium As Well As a Gram-Positive Clinton. Wound Cultures from March 19 Currently Pending. (4) Ecchymosis: Status: Acute Code(s): R58 - Hemorrhage, not elsewhere classified Plan: unclear etiology. Hemoglobin stable. Monitor. Pt denies antecedent trauma. Plan Chronic conditions: * DM2: SSI. * hypothyroidism: levothyroxine * obesity class III: complicates care and recovery. VTE prophylaxis: SQ heparin. Disposition: to SNF. Allergies/Procedures Done in Hospital Allergies No Known Allergies Allergy (Verified 03/13/25 13:58) Procedures: Dialysis Type of Care/Length of Stay Estimated LOS: Convalescent Care Less Than 30 days Type of Care Needed: Skilled Rehab Potential: Fair Prognosis: Fair Additional Orders/Day of Discharge Day of Discharge: 03/23/25 Dietary and Speech Recommendations Dietitian Recommendations/Changes: Adjust to renal general, consistent carbohydrate. Will order cornell BID with breakfast and dinner to promote wound healing. Jason monitor weight trends. 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 Instructions for Kidney Biopsy Discharge Orders/Prescriptions Prescriptions: New doxycycline monohydrate 100 mg Capsule 100 mg PO BID 39 Days Qty: 78 0RF amoxicillin-pot clavulanate 250-125 mg tablet 1 tab PO BID 39 Days Qty: 78 0RF Continued levothyroxine [Synthroid] 100 mcg tablet 100 mcg PO DAILY atorvastatin 10 mg tablet 10 mg PO QHS carvedilol [Coreg] 6.25 mg tablet 6.25 mg PO BID Qty: 60 11RF Rx Instructions: must administer with a meal/food furosemide 40 mg tablet 40 mg PO QAM Qty: 30 0RF aspirin 81 mg Tablet,Chewable 81 mg PO DAILYCM 90 Days Qty: 90 0RF Discontinued metformin 500 mg tablet 500 mg PO BID dapagliflozin propanediol [Farxiga] 10 mg tablet 10 mg PO QDAY Qty: 30 3RF Patient Comments: PT HAS NOT PICKED UP YET Referrals / Follow Up: Donal Castle MD [Primary Care Provider] - Disposition Disposition (needs filled in before D/C Order can be placed): [facility] Facility (1) Acute on chronic renal failure Qualifiers: Acute renal failure type: unspecified Chronic kidney disease stage: stage 3 (moderate) Chronic kidney disease stage 3 subtype: stage 3a (GFR 45-59) Qualified Code(s): N17.9 - Acute kidney failure, unspecified; N18.31 - Chronic kidney disease, stage 3a (2) Congestive heart failure Qualifiers: Heart failure type: systolic Heart failure chronicity: acute on chronic Qualified Code(s): I50.23 - Acute on chronic systolic (congestive) heart failure
--- NOTE | 2025-03-23 11:24 | DS.PCM_ITS ---
Providers Date of Admission: 03/13/25 Primary Care Physician: Donal Castle MD Consultations 03/13/25 19:49 Consult: Cardiology Routine Consulting Provider: Bandar Linares Reason for Consult: CHF with elevated troponin EMERGENT Consult: No MD Notified: Yes Date Notified: 03/13/25 Time Notified: 18:38 Method of Notification: Verbal Consult: Nephrology Routine Consulting Provider: Lorraine Gupta Reason for Consult: Acute renal failure EMERGENT Consult: No MD Notified: Yes Date Notified: 03/13/25 Time Notified: 23:40 Method of Notification: Answering Service 03/15/25 09:41 Consult: General Surgery Routine Consulting Provider: Joao Francois Reason for Consult: tunneled HD line placement EMERGENT Consult: No MD Notified: Yes Date Notified: 03/15/25 Time Notified: 10:05 Method of Notification: Text 03/15/25 19:23 Consult: Onc/Wound/clinical data coordinator Routine Comment: Comments:: Right great toe necrotic ulcer 03/16/25 09:36 Consult: Podiatry Routine Consulting Provider: Lucas Coronado Reason for Consult: right great toe wound EMERGENT Consult: No Notified: Yes Date Notified: 03/16/25 Time Notified: 09:36 Method of Notification: Text 03/20/25 08:52 Consult: Infectious Disease Routine Consulting Provider: Oswald Bonds Reason for Consult: R toe osteo, cultures thusfar polymicrobial, pod rec'd ID c/s for abx mngmt EMERGENT Consult: No MD Notified: Yes Date Notified: 03/20/25 Time Notified: 08:52 Method of Notification: Text Reason For Visit: ABNORMAL LABS Diagnosis Discharge Diagnosis (1) Acute on chronic renal failure: Status: Chronic Code(s): N17.9 - Acute kidney failure, unspecified; N18.9 - Chronic kidney disease, unspecified Qualifiers: Acute renal failure type: unspecified Chronic kidney disease stage: s tage 3 (moderate) Chronic kidney disease stage 3 subtype: stage 3a (GFR 45-59) Qualified Code(s): N17.9 - Acute kidney failure, unspecified; N18.31 - Chronic kidney disease, stage 3a Plan: Tunneled dialysis cath placed 03/16. Now on HD nephrology following. kidney biopsy performed. DW Dr. Gupta, preliminary looks like ATN. (2) Congestive heart failure: Status: Acute Code(s): I50.9 - Heart failure, unspecified Qualifiers: Heart failure type: systolic Heart failure chronicity: acute on chronic Qualified Code(s): I50.23 - Acute on chronic systolic (congestive) heart failure Plan: acute HFrEF. EF 30% from echo on 12/12 Further fluid removal via dialysis. Still very edematous. (3) Right hallux osteomyelitis: Status: Acute Code(s): M86.9 - Osteomyelitis, unspecified Plan: present on arrival. Patient underwent amputation on March 19. podiatry following on Amp/SB. Seen by ID and recommended 1 week amox/CA 250 BID and doxycycline. Wound culture from the second showed Enterococcus and Enterococcus Avium As Well As a Gram-Positive Clinton. Wound Cultures from March 19 Currently Pending. (4) Ecchymosis: Status: Acute Code(s): R58 - Hemorrhage, not elsewhere classified Plan: unclear etiology. Hemoglobin stable. Monitor. Pt denies antecedent trauma. Plan Chronic conditions: * DM2: SSI. * hypothyroidism: levothyroxine * obesity class III: complicates care and recovery. VTE prophylaxis: SQ heparin. Disposition: to SNF. Medications at Discharge Home Medications atorvastatin 10 mg tablet 10 mg PO QHS cholesterol 08/31/22 levothyroxine 100 mcg tablet (Synthroid) 100 mcg PO DAILY thyroid 08/31/22 aspirin 81 mg chewable tablet 81 mg PO DAILYCM 90 days #90 tabs 10/21/24 carvedilol 6.25 mg tablet (Coreg) 6.25 mg PO BID #60 tabs 12/01/24 furosemide 40 mg tablet 40 mg PO QAM #30 tabs 03/12/25 amoxicillin 250 mg-potassium clavulanate 125 mg tablet 1 tab PO BID 39 days #78 tabs 03/22/25 doxycycline monohydrate 100 mg capsule 100 mg PO BID 39 days #78 caps 03/22/25 Hospital Course Operations - Procedures Central line placement (tunnelled hemodialysis catheter placement. ) and Dialysis Summary of Care Provided Minutes Spent on Discharge: 32 Hospital Course: Patient presents with heart failure compounded by kidney disease. Since the patient required dialysis and had a tunneled dialysis catheter placed and was started on hemodialysis with large volume of fluid removed with patient was still very edematous with profound edema in her lower extremities up into her abdomen. Patient also had osteomyelitis of her great toe which was amputated on March 19. Patient be discharged with Augmentin as well as doxycycline. Patient was seen in consultation by infectious disease. Patient will need to continue with dialysis at least in the short-term but more likely in the long-term. Interestingly while she was here she did develop ecchymosis in her shoulders bilaterally. There was no trauma. Patient did have a hemodialysis catheter placed on her right but she also had ecchymosis on her left shoulder. Is unclear what happened but her hemoglobin has remained stable here. Weight / BMI Weight Weight: 113.7 kg Body Mass Index (BMI) 49.2 ABG / Lab / Microbiology Data 03/23/25 04:42 03/23/25 04:42 Laboratory: Laboratory Results - last 24 hr 03/22/25 11:24: POC Glucose 137 H 03/22/25 17:39: POC Glucose 136 H 03/22/25 20:12: POC Glucose 182 H 03/23/25 04:42: WBC 7.5, RBC 3.77 L, Hgb 9.8 L, Hct 34.2 L, MCV 90.7, MCH 26.0 L , MCHC 28.7 L, RDW Std Deviation 57.6 H, RDW Coeff of Leif 17.2 H, Plt Count 182, MPV 10.2, Sodium 135, Potassium 4.0, Chloride 102, Carbon Dioxide 21.2, Anion Gap 12, BUN 48 H, Creatinine 4.76 H, Estim Creat Clear Calc 12.14 L, Est GFR (MDRD) Non-Af 9 L, BUN/Creatinine Ratio 10.1, Glucose 130 H, Calcium 8.0 03/23/25 06:05: POC Glucose 119 H Microbiology: Microbiology 03/19/25 12:50 Wound - Aerobic Swab Gram Stain - Final 03/19/25 12:50 Wound - Aerobic Swab Wound Culture - Preliminary Staphylococcus epidermidis Staphylococcus aureus GPC Poss Enterococcus sp 03/19/25 12:50 Wound - Aerobic Swab Anaerobic Culture - Final No anaerobic bacteria isolated. 03/19/25 12:50 Bone - Great Toe Gram Stain - Final 03/19/25 12:50 Bone - Great Toe Wound Culture - Final Staphylococcus haemolyticus Meth. resistant Staph. aureus Enterococcus faecalis Corynebacterium amycolatum 03/19/25 12:50 Bone - Great Toe Anaerobic Culture - Preliminary 03/16/25 09:25 Wound - Toe Gram Stain - Final 03/16/25 09:25 Wound - Toe Wound Culture - Final Enterococcus casseliflavus (D) Enterococcus avium Gram positive clinton 03/14/25 18:00 Urine Catheter - Catheter Urine Culture - Final Culture exhibits no growth. D/C Instructions Discharge Diet: Renal Diet DC O2, CPAP, BIPAP Needs Home O2 Discharge instructions: Yes Type of respiratory needs?: Oxygen Oxygen frequency: Continuous Continuous oxygen liters per minute: 2 DC home with Oxygen: Yes Home O2 MD Review: I have reviewed the oxygen testing, and the patient qualifies for home oxygen equipment and portability. The patient is mobile in the home and the community. Meaningful Use Info Meaningful Use Meaningful Use Diagnoses (Choose all that apply): None applicable Ischemic Stroke Statin Dosing Therapy Reference: STATIN DOSE THERAPY REFERENCE: * Patients > 75 years receive moderate or high dose statin therapy. * Patients 75 years or YOUNGER should receive HIGH intensity statin dose unless contraindicated. You will be required to document reason for non-treatment if statin daily dose does not meet guidelines. 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 Instructions for Kidney Biopsy Discharge Orders/Prescriptions Prescriptions: New doxycycline monohydrate 100 mg Capsule 100 mg PO BID 39 Days Qty: 78 0RF amoxicillin-pot clavulanate 250-125 mg tablet 1 tab PO BID 39 Days Qty: 78 0RF Continued levothyroxine [Synthroid] 100 mcg tablet 100 mcg PO DAILY atorvastatin 10 mg tablet 10 mg PO QHS carvedilol [Coreg] 6.25 mg tablet 6.25 mg PO BID Qty: 60 11RF Rx Instructions: must administer with a meal/food furosemide 40 mg tablet 40 mg PO QAM Qty: 30 0RF aspirin 81 mg Tablet,Chewable 81 mg PO DAILYCM 90 Days Qty: 90 0RF Discontinued metformin 500 mg tablet 500 mg PO BID dapagliflozin propanediol [Farxiga] 10 mg tablet 10 mg PO QDAY Qty: 30 3RF Patient Comments: PT HAS NOT PICKED UP YET Referrals / Follow Up: Donal Castle MD [Primary Care Provider] - Disposition Disposition (needs filled in before D/C Order can be placed): Detention Facility Charges/Coding Visit Charges Inpatient E&M: 35038 Disch Hosp >30min
--- NOTE | 2025-03-23 11:33 | PHA.DC.MR.R ---
Pharmacy [place] Med Reconciliation Pharmacy Service has performed discharge medication reconciliation for this patient. The patient's discharge medication list was reviewed for discrepancies and discrepancies were resolved. Medications at Discharge Home Medications atorvastatin 10 mg tablet 10 mg PO QHS cholesterol 08/31/22 levothyroxine 100 mcg tablet (Synthroid) 100 mcg PO DAILY thyroid 08/31/22 aspirin 81 mg chewable tablet 81 mg PO DAILYCM 90 days #90 tabs 10/21/24 carvedilol 6.25 mg tablet (Coreg) 6.25 mg PO BID #60 tabs 12/01/24 furosemide 40 mg tablet 40 mg PO QAM #30 tabs 03/12/25 amoxicillin 250 mg-potassium clavulanate 125 mg tablet 1 tab PO BID 39 days #78 tabs 03/22/25 doxycycline monohydrate 100 mg capsule 100 mg PO BID 39 days #78 caps 03/22/25
[2025-03-23] MEDS: Carvedilol 6.25 MG Tablet PO (11:40)
[2025-03-23] MEDS: Doxycycline 100 MG CAPSULE PO (11:40)
[2025-03-23] MEDS: Heparin Injection (Vial) 5,000 UNIT/ML VIAL 5000 UNIT SC (11:40)
[2025-03-23] MEDS: Aspirin 81 MG TAB.CHEW PO (11:40)
--- NOTE | 2025-03-23 11:57 | CASEMGMT ---
Patient is ready for discharge to [facility]. JESE completed a 7000 in [facility]. JESE called [facility] and arranged for patient to get picked up at 230. However, shortly after JESE hung up phone with [facility] they called back and said they would pick patient up at 1230. JESE notified patient and her via phone. JESE also notified patient's that they will receive a bill for the transport as it is not covered by insurance. JESE sent orders, 7000, and sampler pickup time to [facility] via [facility]. Plan: d/c to [facility] under skilled level of care on a convalescent stay. [facility] will transport patient via wheelchair van. 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
[2025-03-23 12:00] LABS: Bedside Glucose 86 mg/dL (74-106)
== END 2025-03-23 13:24 | disposition skilled nursing facility (03) | DRG 255 ==
LOC: ED 18:21 → PCU 18:53
PROVIDERS: Anesthesiology; Hospitalist; Internal Medicine; Internal Medicine Nephrology; Nurse Practitioner Adult Health; Podiatrist; Student in an Organized Health Care Education/Training Program; Surgery; Admitting Provider Family Medicine; Emergency Provider Emergency Medicine; PCP Family Medicine
PROC: 05HM33Z Insertion of Infusion Device into Right Internal Jugular Vein, Percutaneous Approach (ICD-10-PCS; principal; 2025-03-16 10:45)
PROC: 0Y6P0Z0 Detachment at Right 1st Toe, Complete, Open Approach (ICD-10-PCS; principal; 2025-03-19 11:15)
DX: I13.0 Hypertensive heart and chronic kidney disease with heart failure and stage 1 through stage 4 chronic kidney disease, or unspecified chronic kidney disease (principal); N17.0 Acute kidney failure with tubular necrosis; I50.23 Acute on chronic systolic (congestive) heart failure; I24.89 Other forms of acute ischemic heart disease; E87.20 Acidosis, unspecified; Z68.43 Body mass index [BMI] 50.0-59.9, adult; M86.171 Other acute osteomyelitis, right ankle and foot; I27.20 Pulmonary hypertension, unspecified; B95.2 Enterococcus as the cause of diseases classified elsewhere; E11.22 Type 2 diabetes mellitus with diabetic chronic kidney disease; E03.9 Hypothyroidism, unspecified; I08.3 Combined rheumatic disorders of mitral, aortic and tricuspid valves; Z99.2 Dependence on renal dialysis; L97.514 Non-pressure chronic ulcer of other part of right foot with necrosis of bone; N18.31 Chronic kidney disease, stage 3a; L97.524 Non-pressure chronic ulcer of other part of left foot with necrosis of bone; E78.00 Pure hypercholesterolemia, unspecified; Z79.4 Long term (current) use of insulin; E87.5 Hyperkalemia; E11.42 Type 2 diabetes mellitus with diabetic polyneuropathy; E11.621 Type 2 diabetes mellitus with foot ulcer; E11.69 Type 2 diabetes mellitus with other specified complication; E66.813 Obesity, class 3; Z79.82 Long term (current) use of aspirin; Z90.710 Acquired absence of both cervix and uterus; Z79.84 Long term (current) use of oral hypoglycemic drugs; Z79.890 Hormone replacement therapy
CPT/HCPCS: 36415; 71045; 71046; 73630; 76000; 76770; 76942; 80048; 81001; 82436; 82550; 82570; 82962; 83036; 83520; 83735; 83880; 83930; 83935; 84100; 84132; 84133; 84300; 84443; 84484; 84540; 85025; 85027; 85610; 85730; 86037; 86160; 86225; 87070; 87075; 87077; 87086; 87102; 87186; 87205; 87206; 87340; 87640; 88307; 88311; 90937; 93005; 93922; 94668; 94762; 97110; 97116; 97162; 97166; 97530; 97535; 97803; 99285; C1750; P9612; A4216; G0257; J0295; J0612; J1940; J2405

== ENCOUNTER → 2025-05-16 | Outpatient (CLI) | payer MEDICARE, SELFPAY ==
[2025-05-16 13:42] LABS: PTHIN 136 pg/mL (11-61)
[2025-05-16 13:51] LABS: AST(SGOT) 23 U/L (<=31); Alanine Aminotransfer ALT/SGPT 12 U/L (<=34); Albumin, Serum 3.8 g/dL (3.4-4.8); Alkaline Phosphatase 137 U/L (35-104); Anion Gap 12 (5-15); BUN 15 mg/dL (4-19); BUN/Creat Ratio 7.5 RATIO (10-20); Calcium,Total 9.3 mg/dL (7.6-11.0); Carbon Dioxide 30.5 mmol/L (21.0-32.0); Chloride 97 mmol/L (98-108); Globulin 2.6 g/dL (2.2-4.2); Glucose 126 mg/dL (70-99); Potassium 4.5 mmol/L (3.3-5.1)
[2025-05-16 15:01] LABS: Cholesterol 117 mg/dL (<=200); Low Density Lipoprotein Calc. 33 mg/dL; Triglycerides 108 mg/dL; Very Low Density Lipoprotein 22 mg/dL (5-40); cholesterol:hdl ratio screen 1.88
[2025-05-21 13:07] LABS: Vitamin D 1,25-Dihydroxy 21.6 pg/mL (24.8-81.5)
== END | disposition home or self-care (01) ==
LOC: LAB 12:25
PROVIDERS: PCP Family Medicine; Referring Provider Student in an Organized Health Care Education/Training Program; Visit Provider Student in an Organized Health Care Education/Training Program
DX: E87.5 Hyperkalemia (principal); E55.9 Vitamin D deficiency, unspecified; E03.9 Hypothyroidism, unspecified; E78.5 Hyperlipidemia, unspecified
CPT/HCPCS: 36415; 80053; 80061; 82652; 83970; 84443

== ENCOUNTER → 2025-05-21 | Outpatient (CLI) | payer MEDICARE, SELFPAY | END | disposition home or self-care (01) | LOC: MTLAB 12:43 | PROVIDERS: PCP Family Medicine; Referring Provider Family Medicine; Visit Provider Family Medicine | DX: R19.7 Diarrhea, unspecified (principal) | CPT/HCPCS: 87493 ==

== ENCOUNTER 2025-06-24 23:41 | Inpatient (IN) | payer MEDICARE, SELFPAY ==
[2025-06-24 23:47] VITALS: BP 115/93; PULSE 94; RESP 26; TEMP 36.8; O2SAT 81; O2SAT 92; BMI 43.6
[2025-06-24 23:54] VITALS: BP 115/93; PULSE 94; RESP 22; TEMP 36.8; O2SAT 92
[2025-06-25] VITALS (55 sets, daily range): BP systolic 57–182; BP diastolic 32–156; PULSE 50–108; RESP 10–38; TEMP 36.8–37.2; O2SAT 82–100; BMI 40.7
--- NOTE | 2025-06-25 00:44 | CT_ITS ---
PROCEDURE: CTA CHEST W/WO CONTRAST 06/25/2025 REASON FOR EXAM: SYNCOPE, HYPOXIC ON ARRIVAL TECHNIQUE: CTA CHEST W/WO CONTRAST Multiplanar Sagittal and Coronal images were obtained. One or more dose reduction techniques were used (e.g., Automated exposure control, adjustment of the mA and/or kV according to patient size, use of iterative reconstruction technique). RADIATION DOSE SUMMARY: CTDlvol: 40 mGy DLP: 600 mGycm COMPARISON: 10/30/2024 FINDINGS: Unremarkable base of neck and axilla. Thoracic spine degeneration. Normal esophagus. Cardiac enlargement. Coronary artery calcifications. No aortic dissection. No pulmonary embolism. No acute chest wall findings. Status post cholecystectomy. Small ascites. No acute upper abdominal findings otherwise noted. Mild cirrhotic morphology. Central airways are patent. Moderate right-sided effusion, adjacent compressive atelectasis. Under aerated lungs overall. CT/CTA Chest W/WO Contrast IMPRESSION: Moderate right effusion, adjacent lung compression. No embolism, dissection, or pneumonia. Reading Location: [place] [id number]
--- NOTE | 2025-06-25 00:44 | CT_ITS ---
PROCEDURE: SPINE CERVICAL WITHOUT CONTRAS 06/25/2025 REASON FOR EXAM: HIT HEAD, FALL TECHNIQUE: SPINE CERVICAL WITHOUT CONTRAS Coronal and Sagittal reconstruction series were provided. One or more dose reduction techniques were used (e.g., Automated exposure control, adjustment of the mA and/or kV according to patient size, use of iterative reconstruction technique. RADIATION DOSE SUMMARY: CTDlvol: 26 mGy DLP: 538 mGycm COMPARISON: No FINDINGS: Cervical spine scoliosis and degeneration. No acute fracture or dislocation. No soft tissue injury. No apical pneumothorax. Large layering right-sided effusion. CT/Spine Cervical without Contras IMPRESSION: No acute cervical spine injury. Reading Location: [place] [id number]
--- NOTE | 2025-06-25 00:44 | CT_ITS ---
PROCEDURE: BRAIN/HEAD WITHOUT CONTRAST 06/25/2025 REASON FOR EXAM: HIT HEAD, SYNCOPE TECHNIQUE: BRAIN/HEAD WITHOUT CONTRAST Coronal and Sagittal reconstruction series were provided. One or more dose reduction techniques were used (e.g., Automated exposure control, adjustment of the mA and/or kV according to patient size, use of iterative reconstruction technique. RADIATION DOSE SUMMARY: CTDlvol: 45 mGy DLP: 847 mGycm COMPARISON: No FINDINGS: Old left basal ganglia infarct, extension into the marinelli radiata and centrum semiovale. No acute abnormal brain densities. No intracranial hemorrhage. No hydrocephalus or midline shift. Small right anterior scalp swelling. Bilateral lens extraction. Clear sinuses. CT/Brain/Head without Contrast IMPRESSION: No acute intracranial findings Reading Location: [place] [id number]
--- NOTE | 2025-06-25 00:45 | EKG12_ITS ---
Test Reason : SYNCOPE Blood Pressure : */* mmHG Vent. Rate : 94 BPM Atrial Rate : * BPM P-R Int : * ms QRS Dur : 88 ms QT Int : 348 ms P-R-T Axes : * 85 148 degrees QTcB Int : 435 ms Atrial fibrillation with premature ventricular or aberrantly conducted complexes Low voltage QRS Nonspecific ST and T wave abnormality Abnormal ECG Confirmed by Joao Ramirez ([id number]), primer expeditor and drier MIRNA DRAKE ([id number]) on 06/26/2025 11:38:30 AM Referred By: RIVAS Confirmed By: Joao Ramirez
--- NOTE | 2025-06-25 00:47 | EX.ED.DYSGE1 ---
HPI History of Present Illness Chief Complaint: Syncope Narrative Narrative: Patient is a 75-year-old female presenting to the emergency department for a syncopal event. Patient has a past medical history of aortic valve stenosis, hypertension, hyperlipidemia, CKD on dialysis T, TH, St, CHF, elevated troponin. and son are at bedside. Patient states that she dropped something on the floor in the bathroom while using the restroom and stood up/leaned over to pick it up and syncopized. She states she had no symptoms prior to syncopized in. Denies chest pain, shortness of breath, lightheadedness or dizziness. heard her fall and went to check on her and found her lying on the floor. States she was unconscious for about 30 seconds to 1 minute. She denies any pain from the fall. He states that he thinks she hit her head based on the way she was found on the floor. Son also adds that over the past 2 days she has had 3 other falls, all mechanical in nature. Patient endorses feeling fatigued but denies any other complaints. Denies fever, chills, headache, chest pain, shortness of breath, abdominal pain, nausea, vomiting, diarrhea, dysuria or hematuria. [facility] Medical History Aortic valve stenosis Congestive heart failure Hypertension Type 2 diabetes mellitus with diabetic polyneuropathy Pulmonary hypertension LV dysfunction MRSA (methicillin resistant staph aureus) culture positive Hypothyroidism Osteoporosis Morbid obesity with BMI of 45.0-49.9, adult Wears glasses Post-menopausal Thyroid disease Diabetes Uses wheelchair Ambulates with cane Arthritis High cholesterol Back pain TIA (transient ischemic attack) Dietary restriction Non-smoker History of pain when walking History of transesophageal echocardiography (DESTIN) Cardiology follow-up encounter Diabetes Home Medications ?Medication ?Instructions ?Recorded ?Last Taken ?Type atorvastatin 10 mg tablet 10 mg PO QHS cholesterol 08/31/22 03/12/25 History aspirin 81 mg chewable tablet 81 mg PO DAILYCM 90 days #90 tabs 10/21/24 03/13/25 Rx carvedilol 6.25 mg tablet (Coreg) 6.25 mg PO BID #60 tabs 12/01/24 03/13/25 Rx furosemide 40 mg tablet 40 mg PO QAM #30 tabs 03/12/25 03/13/25 Rx levothyroxine 100 mcg tablet 112 mcg PO DAILY thyroid 04/04/25 Unknown History (Synthroid) hydralazine 25 mg tablet 25 mg PO TID #270 tabs 05/25/25 Unknown Rx isosorbide dinitrate 20 mg tablet 20 mg PO TID #270 tabs 05/25/25 Unknown Rx Allergy/AdvReac Type Severity Reaction Status Date / Time No Known Allergies Allergy Verified 06/24/25 23:47 Family History Mother Hypertension Father Heart disease Surgical History Hx of colonoscopy Hx of cholecystectomy H/O: hysterectomy Social History household members: spouse Smoking Status: Never smoker alcohol intake: never substance use type: does not use caffeine: No ROS ROS ED ROS Narrative see HPI EXAM Physical Exam Narrative Exam Narrative: Vital signs: Reviewed General: Alert and orientedx3. No acute distress. Chronically unwell appearing. HEENT: Head is normocephalic and atraumatic, sinuses nontender, pupils equal round and reactive. Nares are patent. Oropharynx and throat exams normal. Neck: Supple without lymphadenopathy nontender. No midline cervical spinal tenderness to palpation. No step-offs or deformities. Cardiovascular: Irregular rate and rhythm, no murmurs. No rubs or gallops. Normal S1 and S2 Respiratory: No wheezes, rales, rhonchi. Decreased breath sounds in the right lower lobe. Abdominal: Soft and nontender. Normal bowel sounds. No guarding or rebound. Nonsurgical abdomen Extremities: No tenderness. No bruising. Normal range of motion. Normal sensation. Hips are stable and nontender to palpation. No midline thoracic or lumbar spinal tenderness to palpation. No step-offs or deformities. Skin: No rash or redness. Neurological: Cranial nerves II through XII are grossly intact. Normal strength and sensation. Normal cerebellar function The rest of the physical exam is unremarkable Const Vital Signs: 06/24/25 23:47 06/24/25 23:47 06/24/25 23:47 Temperature 98.3 F Temperature Source Oral Pulse Rate 94 Respiratory Rate 26 H Respiratory Effort Short of Breath Accessory Muscle Use Respiratory Pattern Tachypnea Blood Pressure 115/93 H Blood Pressure Mean 100 Pulse Ox 81 92 Oxygen Delivery Method Room Air Nasal Cannula Oxygen Flow Rate (L/min) 2 06/24/25 23:54 06/25/25 00:54 06/25/25 00:54 Temperature 98.3 F 98.3 F Temperature Source Oral Oral Pulse Rate 94 94 Respiratory Rate 22 H 23 H Respiratory Effort Respiratory Pattern Blood Pressure 115/93 H 158/106 H Blood Pressure Mean 100 123 Pulse Ox 92 94 Oxygen Delivery Method Nasal Cannula Nasal Cannula Nasal Cannula Oxygen Flow Rate (L/min) 2 2 06/25/25 01:00 06/25/25 01:37 06/25/25 01:51 Temperature 98.3 F Temperature Source Oral Pulse Rate 94 Respiratory Rate 23 H Respiratory Effort Respiratory Pattern Blood Pressure 158/106 H 85/52 L 97/85 H Blood Pressure Mean 123 63 89 Pulse Ox 94 Oxygen Delivery Method Nasal Cannula Oxygen Flow Rate (L/min) 2 06/25/25 02:00 06/25/25 02:18 Temperature 98.3 F Temperature Source Oral Pulse Rate 84 Respiratory Rate 25 H Respiratory Effort Respiratory Pattern Blood Pressure 84/60 L 107/83 H Blood Pressure Mean 68 91 Pulse Ox 92 Oxygen Delivery Method Nasal Cannula Oxygen Flow Rate (L/min) 2 MDM MDM MDM Narrative Medical decision making narrative: Patient is a 75-year-old female presenting to the emergency department for a syncopal event. Patient was seen and examined. Vitals are stable. She was placed on 2 L nasal cannula by nursing staff due to initial hypoxia of 81%. She is now saturating 92% on 2 L. Given the patient's frequent falls recently and now her syncopal event I do have concern about a possible underlying infection. Given no prodromal symptoms of the syncope I also have concern that a cardiac dysrhythmia. Given her hypoxia and syncopal event I have concern for pulmonary embolism as well. CT brain, cervical spine and CTA of the chest for ordered as well as labs. Labs are notable for leukocytosis of 20.7 and a normal hemoglobin of 12.2. Lactate of 2.8. Given these lab findings and her initial RR of 26, sepsis team called. Blood cultures x 2 were obtained. Patient was started on Rocephin and azithromycin for likely respiratory source given the hypoxia and no abdominal pain or urinary symptoms. Fluids started however will be cautious given her history of CHF. CMP with an anion gap of 18, likely lactic acidosis and CKD that appears to be around baseline for her. She did go to her dialysis appointment on Wednesday. Glucose was elevated at 232 but there was no acidosis on VBG to suspect DKA and this is not high enough to suspect HHS. AST and ALT were mildly elevated as well as an elevated alk phos of 231, for this reason a CT abdomen pelvis were ordered given no ultrasound capabilities for gallbladder scan at this time. CT abdomen shows possible third spacing. CT brain shows no acute intracranial abnormalities. CT cervical spine shows no acute traumatic findings. CTA chest shows moderate right effusion, adjacent lung compression. No embolism, dissection, or pneumonia. EKG shows rate controlled A-fib with PVCs. No significant ST elevation or depression. Initial troponin of 97 with a reflex of 94. She does have a history of elevated troponins with her CKD. Patient and family updated on the findings and need for admission given concern for possible sepsis as well as her frequent falls. They are agreeable. Patient admitted to the hospitalist for further management, urinalysis was still pending at this time. History & Record Review Discussion w/independent historian: Patient and Family Lab Data Attestation: I reviewed the patient's lab results. Labs: Laboratory Results - last 24 hr 06/25/25 06/25/25 06/25/25 00:49 01:43 02:43 WBC 20.7 H RBC 4.21 Hgb 12.2 Hct 38.9 MCV 92.4 MCH 29.0 MCHC 31.4 L RDW Std Deviation 54.7 H RDW Coeff of Leif 16.6 H Plt Count 225 MPV 10.4 Immature Gran % (Auto) 0.900 Neut % (Auto) 90.9 H Lymph % (Auto) 2.8 L Simpson % (Auto) 5.2 Eos % (Auto) 0.0 Baso % (Auto) 0.2 Absolute Neuts (auto) 18.8 H Absolute Lymphs (auto) 0.58 L Nucleated RBC % 0.4 Sodium 134 Potassium 4.1 Chloride 91 L Carbon Dioxide 25.0 Anion Gap 18 H BUN 55 H Creatinine 5.40 H Estim Creat Clear Calc 9.45 L* Est GFR (MDRD) Non-Af 8 L BUN/Creatinine Ratio 10.2 Glucose 232 H Lactic Acid 2.8 H* Calcium 8.6 Magnesium 2.2 Total Bilirubin 1.00 AST 66 H ALT 53 H Alkaline Phosphatase 231 H Troponin T High Sens 97 H* D Troponin T Hi Sens 2 Hr 94 H* Total Protein 6.6 Albumin 3.7 Globulin 2.9 Albumin/Globulin Ratio 1.3 ABG Data ABG results: ABG 06/25/25 01:49 Specimen Type STEFANI Sample Site Not entered O2 % 2.0 VBG pH 7.36 VBG pO2 26 VBG HCO3 31 H VBG Total CO2 32 VBG O2 Sat (Calc) 43 L VBG Base Excess 5 H POC Mix VBG pCO2 Pt Tmp 54.8 H O2 Delivery Device Cannula Radiography Diagnostic Testing: Clinical Impression(s) from Imaging Studies Brain CT 06/25/25 00:44 IMPRESSION: No acute intracranial findings Reading Location: [facility] [address] 06/25/25 00:44 IMPRESSION: No acute cervical spine injury. Reading Location: [facility] Chest CTA 06/25/25 00:44 IMPRESSION: Moderate right effusion, adjacent lung compression. No embolism, dissection, or pneumonia. Reading Location: [facility] Abdomen/Pelvis CT 06/25/25 01:30 IMPRESSION: Possible third-spacing. Reading Location: [facility] Discharge Plan Disposition Disposition: Acute Care Hospital [facility] Discharge Date/Time: 06/25/25 03:31
[2025-06-25 00:59] LABS: Hematocrit 38.9 % (37-47); Hemoglobin 12.2 g/dL (12.0-15.0); Immature Granulocytes Count 0.190 X10^3/uL (0.0-0.0); Mean Corp Hgb Conc 31.4 g/dL (32-36); Mean Corpuscular Volume 92.4 fL (81-99); Mean Platelet Vol. 10.4 fl (6.2-12.0); NRBC Flagged by Analyzer 0.4 % (0-5); POSITIVE DIFFERENTIAL YES; Platelet Count 225 K/mm3 (150-450); RBC Distribution Width CV 16.6 % (11.6-14.6); RBC Distribution Width SD 54.7 fl (35.1-43.9); Red Blood Count 4.21 M/mm3 (4.2-5.4); White Blood Count 20.7 K/mm3 (4.4-11.0)
[2025-06-25 01:19] LABS: AST(SGOT) 66 U/L (<=31); Alanine Aminotransfer ALT/SGPT 53 U/L (<=34); Albumin, Serum 3.7 g/dL (3.4-4.8); Alkaline Phosphatase 231 U/L (35-104); Anion Gap 18 (5-15); BUN 55 mg/dL (4-19); BUN/Creat Ratio 10.2 RATIO (10-20); Calcium,Total 8.6 mg/dL (7.6-11.0); Carbon Dioxide 25.0 mmol/L (21.0-32.0); Chloride 91 mmol/L (98-108); Estimated Creatinine Clearance 9.45 ml/min (50-250); Globulin 2.9 g/dL (2.2-4.2); Glucose 232 mg/dL (70-99); Magnesium 2.2 mg/dL (1.5-2.2); Potassium 4.1 mmol/L (3.3-5.1)
--- OUTSIDE RECORDS SUMMARY | 2025-06-25 01:26 | XMS RPT_ITS | CCD ---
Author Organization [facility] Care Team Providers Care Mill Tender Second Operator Name Role Phone Dee Dee, Pete N Unavailable Unavailable Dee Dee, Pete N Unavailable Unavailable RENE, QARAB CRISTOFER Unavailable Unavailable RENE, QARAB CRISTOFER Unavailable Unavailable RENE, QARAB CRISTOFER Unavailable Unavailable RENE, QARAB CRISTOFER Unavailable Unavailable RENE, QARAB CRISTOFER Unavailable Unavailable Girish Simon Admitting Unavailable Girish Simon Attending Unavailable Girish Simon Primary Care Unavailable Rene, Qarab H Admitting Unavailable Rene, Qarab H Attending Unavailable Girish Simon Primary Care Unavailable Girish Simon Primary Care Provider Rene SANTIAGO, Qarab Cristofer Unavailable Girish Simon Unavailable Unavailable Unavailable Girish Simon Primary Care Provider Rene SANTIAGO, Qarab Cristofer Unavailable Dr. Girish Simon Primary Care Provider [phone] Dr. Girish Simon Referring Provider Dr. Sean Mascorro Attending Provider [phone] Kenan Banuelos Attending Provider Dr. Milton Love Admit Provider Dr. Milton Love Referring Provider Dr. Milton Love Other Provider Dr. Anai Nixon Attending Provider Dr. Anai Nixon Other Provider Girish Simon Primary Care Provider Rene SANTIAGO, Yasmeen Cristofer Unavailable [phone] GIRISH SIMON Primary Care Unavailable AVERY ENCINAS Attending Unavailabl e Rene SANTIAGO, ra Cristofer Unavailable [phone] [place], Dr. Girish Conway Primary Care Unavaila ble Radha, MsVenu Sampson Attending Unavailab le [place], Dr. Girish Conway Primary Care Unavaila ble Radha, MsVenu Sampson Attending Unavailab le [place], Dr. Girish Conway Primary Care Unavaila ble Radha, MsVenu Sampson Attending Unavailab manny Garcia, MsVenu Sampson Attending Unavailab le [place], Dr. Girish Conway Primary [facility] Unavaila ble Radha, MsVenu Sampson Attending Unavailab manny Simon, Dr. Girish Conway Primary [facility] Unavaila ble [place], Dr. Girish Conway Primary [facility] Unavaila ble Radha, MsVenu Sampson Attending Unavailab manny Garcia, MsVenu Sampson Attending Unavailab le [place], Dr. Girish Conway Primary [facility] Unavaila ble [place], Dr. Girish Conway Primary [facility] Unavaila ble Radha, MsVenu Sampson Attending Unavailab le [place], Dr. Girish Conway Primary [facility] Unavaila ble Radha, MsVenu Sampson Attending Unavailab le [place], Dr. Girish Conway Primary [facility] Unavaila ble Radha, MsVenu Sampson Attending Unavailab manny Simon, Dr. Girish Conway Primary Care Unavaila ble Radha, MsVenu Sampson Attending Unavailab manny Garcia, MsVenu Sampson Attending Unavailab le [place], Dr. Girish Conway Primary [facility] Unavaila ble [place], Dr. Girish Conway Primary Care Unavaila ble Radha, MsVenu Sampson Attending Unavailab manny Garcia, MsVenu Sampson Attending Unavailab manny Simon, Dr. Girish Conway Primary Care Unavaila ble [place], Dr. Girish Conway Primary Care Unavaila ble Radha, Ms. Carey Sampson Attending Beataab manny Simon, Dr. Girish Conway Attending Unavaila ble [place], Dr. Girish Conway Primary Care Unavaila ble [place], Dr. Girish Conway Referring Unavaila ble Tomdaniel, Dr. Girish Conway Primary Care Unavaila ble [place], Dr. Girish Conway Attending Unavaila ble Radha, MsVenu Sampson Attending Unavailab le Tomdaniel, Dr. Girish Conway Primary Care Unavaila ble Tomdaniel, Dr. Girish Conway Primary Care Unavaila ble Radha, MsVenu Sampson Attending Unavailab le Tomdaniel, Dr. Girish Conway Primary Care Unavaila ble Radha, MsVenu Sampson Attending Unavailab le Tomdaniel, Dr. Girish Conway Primary Care Unavaila ble Radha, MsVenu Sampson Attending Unavailab le Tomdaniel, Dr. Girish Conway Primary Care Unavaila ble Radha, MsVenu Sampson Attending Unavailab le Tomdaniel, Dr. Girish Conway Primary Care Unavaila ble Radha, MsVenu Sampson Attending Unavailab le Tomdaniel, Dr. Girish Conway Primary Care Unavaila ble Radha, MsVenu Sampson Attending Unavailab le [place], Dr. Girish Conway Primary Care Unavaila ble aRdha, MsVenu Sampson Attending Unavailab le [place], Dr. Girish Conway Primary Care Unavaila ble Radha, MsVenu Sampson Attending Unavailab le [place], Dr. Girish Conway Primary Care Unavaila ble Radha, MsVenu Sampson Attending Unavailab Girish Roland MD Primary Care Provider Girish Simon MD Primary Care Provider Cooperdarleen II, OD, Sarah H Unavailable IVAN BAXTER Admitting Unavailable IVAN BAXTER Attending Unavailable GIRISH SIMON Primary Care Unavailable Suman SANTIAGO, Donal Primary Care Provider Suman SANTIAGO, Donal Primary Care Provider Suman SANTIAGO, Donal Primary Care Provider Dr. Kenan White MD Attending Provider Dr. Kenan White MD Referring Provider [phone] Dr. Lucas Cui DO Emergency Provider [phone] Campos DO, Dr. Street Admit Provider Unavail able Campos DO, Dr. Street Other Provider Unavail able Rowan SANTIAGO, Dr. Sanchez Other Provider Unavailable Alberto SANTIAGO, Dr. Danielson Other Provider Wade SANTIAGO, Dr. Underwood Other Provider Angie SANTIAGO, Dr. Pack Other Provider Andrea SANTIAGO, Dr. Vallecillo Other Provider Ashley SANTIAGO, Dr. Shepherd Other Provider Milagros SANTIAGO, Dr. Portillo Other Provider Kassandra SANTIAGO, Dr. Zhou Other Provider Hong SANTIAGO, Dr. Estrada Other Provider Fatou GENERAL MANAGER [employer], Man Pierson Other Provider Jud BOATENG, Janene Ricketts Other Provider Dr. Seth Garnica DO Attending Provider Javier SANTIAGO, Dr. Street Other Provider Unavailable Ashley SANTIAGO, Dr. Shepherd Attending Provider Milagros SANTIAGO, Dr. Portillo Attending Provider Campos DO, Dr. Street Referring Provider Elhamv marla Varela MD, Dr. Leung Other Provider Marilin SANTIAGO, Dr. Mitchell Other Provider Philippe SANTIAGO, Dr. Gonzales Other Provider Dr. Mark Mcfarland DO Attending Provider Dr. Mark Mcfarland DO Other Provider Whit SANTIAGO, Dr. Girish Cruz Other Provider Cyndy SANTIAGO, Dr. Quintanilla Other Provider Krys SANTIAGO, Dr. Montenegro Other Provider Shefali SANTIAGO, Dr. Vega Other Provider [phone] Monika SANTIAGO, Dr. Vang Other Provider [phone] Adam SANTIAGO, Dr. Mohr Other Provider Mackenzie SANTIAGO, Dr. Lundberg Other Provider Julieta SANTIAGO, Dr. Conrad Other Provider Unavailabl babak Cooper MD, Dr. Dalal Other Provider Darnell SANTIAGO, Dr. Novak Other Provider Estuardo SANTIAGO, Dr. Castanon Other Provider Christa CARDOSO, Dr. Lima Other Provider Hina SANTIAGO, Dr. Kaur Other Provider [phone] Jayro CARDOSO, Dr. Harrington Other Provider Guy SANTIAGO, Dr. Almanzar Other Provider Navid SANTIAGO, Dr. Luke Other Provider Javier SANTIAGO, Dr. Street Attending Provider Unavaila ble Nahun CARDOSO, Dr. Ann Other Provider Dr. Fitz Deleon DO Emergency Provider Raghavendra SANTIAGO, Dr. Braun Admit Provider Raghavendra SANTIAGO, Dr. Braun Other Provider Dr. Seth Garnica DO Referring Provider Donal Castle MD Attending Provider Donal Castle MD Referring Provider Dr. Joao Ramirez MD Referring Provider Angie SANTIAGO, Dr. Pack Attending Provider Donal Castle MD Primary Care Provider Donal Castle MD Referring Provider Dr. Joao Ramirez MD Attending Provider Donal Castle MD Attending Provider Onofre Mejia Attending Provider Onofre Mejia Referring Provider Dr. Fitz Deleon DO Emergency Provider [phone] Wanda SANTIAGO, Dr. Milton F Admit Provider Wanda SANTIAGO, Dr. Milton Arizmendi Attending Provider Wanda SANTIAGO, Dr. Milton Arizemndi Other Provider Wanda SANTIAGO, Dr. Milton Arizmendi Other Provider Nahun CARDOSO, Dr. Ann Other Provider Milagros SANTIAGO, Dr. Portillo Other Provider Priscila SANTIAGO, Dr. Shepherd Other Provider Alonso SANTIAGO, Dr. Peters Other Provider Ivonne VO, Dr. Zavala Other Provider Connor CARDOSO, Dr. Byrnes Attending Provider Connor CARDOSO, Dr. Byrnes Other Provider Cammie SANTIAGO, Dr. Akers Other Provider Raghavendra SANTIAGO, Dr. Braun Other Provider Wanda SANTIAGO, Dr. Milton Arizmendi Attending Provider Nahun CARDSOO, Dr. Ann Attending Provider Priscila SANTIAGO, Dr. Shepherd Attending Provider Marcus SANTIAGO, Dr. Byrnes Attending Provider Ivonne VO, Dr. Zavala Referring Provider Conor SANTIAGO, Dr. Antonio Garcia Attending Provider Raghavendra SANTIAGO, Dr. Braun Attending Provider Suman SANTIAGO, Donal Primary Care Provider Dr. Joao Ramirez MD Attending Provider Ashley SANTIAGO, Dr. Shepherd Referring Provider Suman SANTIAGO, Donal Referring Provider Suman SANTIAGO, Donal Primary Care Provider Suman SANTIAGO, Donal Referring Provider Angie SANTIAGO, Dr. Pack Attending Provider Dr. Fitz Ryan DO Referring Provider Donal Castle MD Attending Provider CHERRI, SERGO Attending Unavailable YUAN, SERGO Referring Unavailable SUMAN, CHALON Primary Care Unavailable COOPERRIDER II, SARAH Pierson Attending Unavailabl e SELF Referring Unavailable SUMAN, CHALON Primary Care Unavailable YUAN, SERGO Attending Unavailable COOPERRIDER II, SARAH Pierson Referring Unavailabl e SUMAN, CHALON Primary Care Unavailable YEN GAMBOA Attending Unavailable YUAN, SERGO Referring Unavailable SUMAN, CHALON Primary Care Unavailable COOPERRIDER II, SARAH Pierson Attending Unavailabl e COOPERRIDER II, SARAH H Referring Unavailabl e SUMAN, CHALON Primary Care Unavailable YUAN, SERGO Attending Unavailable YUAN, SERGO Referring Unavailable SUMAN, CHALON Primary Care Unavailable YUAN, SERGO Attending Unavailable YUAN, SERGO Referring Unavailable SUMAN, CHALON Primary Care Unavailable YUAN, SERGO Attending Unavailable YUAN, SERGO Referring Unavailable SUMAN, CHALON Primary Care Unavailable Aparna Mabry Consulting Unavailable Aparna Mabry Admitting Unavailable Suman, Chalon Primary Care Unavailable Seth Garnica Attending Unavailable Seth Garnica Consulting Unavailable Milton Muñoz Admitting Unavailable Bandar Linares Consulting Unavailabl e Suman, Chalon Primary Care Unavailable Seth Garnica Attending Unavailable Lorraine Grande Consulting Unavailable Milton Muñoz Consulting Unavailable Joao Francois Consulting Unavailable Lucas Coronado Consulting Unavailable Seth Garnica Consulting Unavailable Joao Francois Attending Unavailable Aparna Mabry Consulting Unavailable Suman, Chalon Primary Care Unavailable Seth Garnica Attending Unavailable Aparna Mabry Admitting Unavailable Fitz Ryan Referring Unavailable Aparna Mabry Attending Unavailable Joao Ramirez Attending Unavailable Suman, Chalon Primary Care Unavailable Suman, Chalon Referring Unavailable Girish Campos Admitting Unavailable Suman, Chalon Primary Care Unavailable Girish Campos Consulting Unavailable Girish Campos Attending Unavailable Girish Herrera Consulting Unavailable Bandar Linares Attending Unavailabl e Suman, Chalon Primary Care Unavailable Girish Herrera Attending Unavailable Laura Donahue Consulting Unavailable Jagjit Dominguez Consulting Unavailable Kj Olvera Consulting Unavailable Ramone Adams Consulting Unavailable Ruth Ann Mendez Consulting Unavailable Joao Ramirez Consulting Unavailable Bandar Linares Consulting Unavaildelores Cannon, Abelardo Consulting Unavailable Sean Pitts Consulting Unavailable Fatou SIDDIQUI, Man Pierson Consulting Unavailable Jud BOATENG, Janene Ricketts Consulting Unavail able Seth Garnica Attending Unavailable Seth Garnica Consulting Unavailable Girish Campos Referring Unavailable Mark Mcfarland Attending Unavailable Madhu Varela Consulting Unavailable Stephen Gaston Consulting Unavailable Christian Paez Consulting Unavailable Mark Mcfarland Consulting Unavailable Girish Sherman Consulting Unavailable Dwight Naylor Consulting Unavailable Lan Marcano Consulting Unavailable Silvia Meehan Consulting Unavailab Taj Grissom Consulting Unavailable Onur Medina Consulting Unavailable Tamika Mann Consulting Unavailable Houston Rendon Consulting Unavailable Mulugeta Cooper Consulting Unavailable Kishore Patrick Consulting Unavailable Lg Marte Consulting Unavailable Clarence Goodwin Consulting Unavailable Vincent Santamaria Consulting Unavailable Len Dial Consulting Unavailable Yohan Tovar Consulting Unavailable Ti Shoemaker Consulting Unavailable Joao Ramirez Attending Unavailable Suman, Chalon Primary Care Unavailable Seth Garnica Attending Unavailable Seth Garnica Referring Unavailable Suman, Chalon Primary Care Unavailable Kenan White Referring Unavailable Kenan White Attending Unavailable Joao Ramirez Attending Unavailable Joao Ramirez Referring Unavailable Suman, Chalon Primary Care Unavailable Fitz Ryan Attending Unavailable Fitz Ryan Consulting Unavailable Onofre Claros Referring Unavailable Onofre Claros Attending Unavailable Suman, Chalon Primary Care Unavailable Suman, Chalon Primary Care Unavailable Almas Massey Referring Unavailable Almas Massey Attending Unavailable Milton Muñoz Consulting Unavailable Jarrell Muñozolas F Admitting Unavailable Fitz Ryan Attending Unavailable Suman, Chalon Primary Care Unavailable Seth Garnica Consulting Unavailable Bandar Linares Consulting UnavailJoao Pollock Consulting Unavailable Lorraine Grande Consulting Unavailable Lucas Coronado Consulting Unavailable Fitz Ryan Consulting Unavailable Oswald Bonds Consulting Unavailable Aparna Mabry Consulting Unavailable Joao Ramirez Attending Unavailable Joao Ramirez Referring Unavailable Suman, Chalon Primary Care Unavailable Onofre Claros Referring Unavailable Onofre Claros Attending Unavailable Suman, Chalon Primary Care Unavailable EvaiterAngelaOnofre Attending Unavailable Suman, Chalon Primary Care Unavailable Suman, Chalon Referring Unavailable Demiter, Onofre Attending Unavailable Suman, Chalon Primary Care Unavailable Suman, Chalon Referring Unavailable Demiter Onofre Attending Unavailable Suman, Chalon Primary Care Unavailable Suman, Chalon Referring Unavailable Lucas Coronado Referring Unavailable Suman, Chalon Primary Care Unavailable Fitz Velazquez Attending Unavailable Angie, Ramone Attending Unavailable Suman, Chalon Primary Care Unavailable Oswald Bonds Consulting Unavailable Aparna Mabry Consulting Unavailable Raghavendra, Aparna Attending Unavailable Antonio Perdomo Attending Unavailable Suman, Chalon Primary Care Unavailable NatividadingAlmas Attending Unavailable NatividadingAlmas Referring Unavailable Suman, Chalon Attending Unavailable Suman, Chalon Primary Care Unavailable Suman, Chalon Attending Unavailable Suman, Chalon Primary Care Unavailable Suman, Chalon Referring Unavailable Suman, Chalon Attending Unavailable Suman, Chalon Primary Care Unavailable Suman, Chalon Referring Unavailable Milton Muñoz Attending Unavailable Angie, Ramone Attending Unavailable Suman, Chalon Primary Care Unavailable Seth Garnica Attending Unavailable Girish Campos Consulting Unavailable Girish Campos Admitting Unavailable Laura Donahue Consulting Unavailable Jagjit Dominguez Consulting Unavailable Kj Olvera Consulting Unavailable Angie, Ramone Consulting Unavailable Ruth Ann Mendez Consulting Unavailable Joao Ramirez Consulting Unavailable Bandar Linares Consulting UnavailAbelardo Farmer Consulting Unavailable Sean Pitts Consulting Unavailable Fatou GENERAL MANAGER [employer]OUD, Man Pierson Consulting Unavailable Janene Henderson Consulting Unavail able Girish Herrera Consulting Unavailable Joao Ramirez Attending Unavailable Joao Ramirez Referring Unavailable Suman, Chalon Primary Care Unavailable Suman, Chalon Primary Care Unavailable Suman, Chalon Attending Unavailable Suman, Chalon Referring Unavailable Allergies Allergy Classification Reported Allergen(s) Allergy Type Date of Onset Reaction(s) Facility (20 sources) Seasonal allergy; Translations: [SEASONAL ALLERGIES] Propensity to adverse reactions (disorder) 5 Other: See Comments [facility] Other [place] [facility] (1 source) Grass pollen; Translations: [GRASS POLLEN] Propensity to adverse reactions to drug (disorder) 5 [facility] Medications Current Medications Medication Drug Class(es) Dates Sig (Normalized) Sig (Original) aspirin 81 mg chewable tablet (20 sources) Platelet Aggregation Inhibitor, Nonsteroidal Anti-inflammatory Drug Start: 10-21-2024 take 1 tablet by mouth once daily at mealtime Aspirin 81 mg Tablet,Chewable Active 81 mg PO DAILY WITH MEALS 90 90 0 October 21, 2024 1:00am Start: 11-20-2022 End: 10-17-2024 take 1 tablet by mouth twice daily at mealtime Aspirin 81 mg Tablet,Chewable Discontinued 81 mg PO TWICE DAILY WITH MEALS 56 28 0 November 20, 2022 1:00am October 17, 2024 11:52pm End: 08-04-2023 take 1 tablet by mouth once daily aspirin, enteric coated (ASPIRIN, ENTERIC COATED) 81 mg EC tablet Take 81 mg by mouth once daily. 0 08/04/2023 Discontinued (Discontinued by another Health Care Provider) Comment on above: Take 81 mg by mouth once daily. atorvastatin 10 mg oral tablet (20 sources) HMG-CoA Reductase Inhibitor Start: 2 End: 3 take 1 tablet by mouth at bedtime Atorvastatin 10 mg tablet Active 10 mg PO AT BEDTIME August 31, 2022 12:00am cholesterol Atorvastatin Berhane cium 10 MG Oral Tablet Quantity: 0 Refills: 0 Ordered: 02-Oct-2019 DO Active Comment on above: Take 10 mg by mouth once daily. benoxinate hydrochloride 4 mg/ml / fluorescein sodium 3 mg/ml ophthalmic solution (11 sources) Diagnostic Dye Start: 09-06-2024 End: 09-07-2024 fluorescein-benoxi toyin 0.3-0.4 % 1 Drop (FLURESS) Start: 09-06-2024 End: 09-07-2024 1 Drop, BOTH EYES, DIRECT ED, Starting on Wed09/06/24 at 1400, Until Wed09/07/24 at 0159, Administer for applanation tonometry. In the event of a Fluress shortage, administer Becky-Fluor 1 drop into both eyes as directed for applanation tonometry Start: 07-20-2024 End: 07-21-2024 fluorescein-benoxinate 0.3-0 .4 % 1 Drop (FLURESS) Start: 07-20-2024 End: 07-21-2024 1 Drop, BOTH EYES, DIRECT ED, Starting on Janneth 07/20/24 at 1300, Until Wed07/21/24 at 0059, Administer for applanation tonometry. In the event of a Fluress shortage, administer Becky-Fluor 1 drop into both eyes as directed for applanation tonometry Start: 09-02-2023 End: 09-03-2023 fluorescein-benoxinate 0.3-0 .4 % 1 Drop (FLURESS) Start: 08-04-2023 End: 08-05-2023 fluorescein-benoxinate 0.25- 0.4 % 1 Drop (FLURESS) Start: 05-05-2023 End: 05-06-2023 fluorescein-benoxinate 0.25- 0.4 % 1 Drop (FLURESS) Start: 12-23-2022 End: 12-24-2022 fluorescein-benoxinate 0.25- 0.4 % 1 Drop (FLURESS) Start: 09-08-2022 End: 09-09-2022 fluorescein-benoxinate 0.25- 0.4 % 1 Drop (FLURESS) Start: 05-05-2022 End: 05-06-2022 fluorescein-benoxinate 0.25- 0.4 % 1 Drop (FLURESS) brimonidine tartrate 2 mg/ml ophthalmic solution (20 sources) alpha-Adrenergic Agonist Start: 09-06-2024 take 1 drop(s) into the eye(s) twice daily brimonidine (ALPHAGAN) 0.2 % ophthalmic solution Use 1 Drop in both eyes two times a day. 15 mL 3 09/06/2024 Active Start: 05-05-2023 End: 09-27-2023 take 1 drop(s) into the eye(s) twice daily brimonidine (AlphaGAN P) 0.2 % ophthalmic solution Administer 1 drop into affected eye(s) twice a day. 0 05/05/2023 Active Start: 01-27-2022 End: 05-05-2023 take 1 drop(s) into the eye(s) twice daily brimonidine (ALPHAGAN) 0.2 % ophthalmic solution Use 1 Drop in both eyes twice daily. 15 mL 3 05/05/2023 Active Comment on above: Use 1 Drop in both e yes twice daily. Use 1 Drop in the le ft eye twice daily. calcium chloride 0.0014 meq/ml / potassium chloride 0.004 meq/ml / sodium chloride 0.103 meq/ml / sodium lactate 0.028 meq/ml injectable solution (2 sources) Start: 09-30-2023 lactated Ringer's infusion Start: 08-26-2023 End: 08-26-2023 lactated Ringer's infusion carvedilol 6.25 mg oral tablet (15 sources) alpha-Adrenergic Ralph, beta-Adrenergic Ralph Start: 03-23-2025 take 1 tablet by mouth twice daily at mealtime carvedilol (COREG) 6.25 mg tablet Take 1 tablet by mouth two times a day with meals. 03/23/2025 Active Start: 10-21-2024 End: 12-01-2024 take 1 tablet by mouth twice daily at mealtime Carvedilol (Coreg) 6.25 mg tablet Active 6.25 mg PO TWICE A DAY 60 11 December 01, 2024 1:00am must administer with a meal/food furosemide 40 mg oral tablet (20 sources) Loop Diuretic Start: 03-12-2025 take 1 tablet by mouth once daily LASIX 40 mg tablet Take 1 tablet by mouth once daily. 03/23/2025 Active Start: 12-01-2024 End: 03-12-2025 take 1 tablet by mouth once daily in the morning as needed Furosemide (Lasix) 20 mg tablet Discontinued 20 mg PO EVERY MORNING as needed March 12, 2025 1:12pm March 12, 2025 2:23pm Start: 11-02-2024 End: 12-01-2024 take 1 tablet by mouth twice daily Furosemide (Lasix) 40 mg tablet Discontinued 40 mg PO TWICE A DAY 60 30 0 November 02, 2024 1:00am December 01, 2024 11:34am Start: 10-21-2024 End: 11-02-2024 take 1 tablet by mouth twice daily Furosemide 20 mg Tablet Discontinued 20 mg PO TWICE DAILY 60 30 2 October 21, 2024 1:00am November 02, 2024 12:16pm glipiZIDE er 2.5 mg 24 hr extended release oral tablet (20 sources) Sulfonylurea Start: 08-31-2022 glipiZIDE (GLU COTROL XL) 2.5 mg 24 hr tablet 08/31/2022 Active Start: 08-31-2022 End: 12-01-2024 take 1 tablet by mouth once daily Glipizide 2.5 mg tablet extended release 24hr Discontinued 2.5 mg PO DAILY August 31, 2022 12:00am December 01, 2024 11:34am diabetes isosorbide dinitrate 20 mg oral tablet (1 source) Nitrate Vasodilator Start: 05-28-2025 take 1 tablet by mouth three times daily isosorbide dinitrate (ISORDIL) 20 mg tablet Take 20 mg by mouth three times a day. 05/28/2025 Active ketorolac tromethamine 5 mg/ml ophthalmic solution (8 sources) Nonsteroidal Anti-inflammatory Drug, Cyclooxygenase Inhibitor Start: 09-30-2023 End: 09-30-2023 ketorolac (Acular) 0.5 % ophthalmic solution 1 drop Start: 08-27-2023 End: 11-04-2023 take 1 drop(s) into the eye(s) four times daily keTORolac (ACULAR) 0.5 % ophthalmic solution Use 1 Drop in the right eye four times daily. 5 mL 2 09/30/2023 11/04/2023 Active Start: 08-26-2023 End: 08-26-2023 ketorolac (Acular) 0.5 % oph thalmic solution 1 drop Comment on above: Use 1 Drop in the le ft eye four times daily. Use 1 Drop in the ri ght eye four times daily. levothyroxine sodium 0.1 mg oral tablet (20 sources) l-Thyroxine Start: 04-04-2025 Levothyroxine (Synthroid) 100 mcg tablet Active 112 ug PO DAILY April 04, 2025 11:39am thyroid Start: 10-09-2014 End: 04-04-2025 take 1 tablet by mouth once daily levothyroxine (SYNTHROID) 100 mcg tablet Take 100 mcg by mouth once daily. 10/09/2014 Active Levothyroxine So dium 100 MCG Oral Tablet Quantity: 0 Refills: 0 Ordered: 02-Oct-2019 DO Active Comment on above: Take 100 mcg by mout h once daily. meloxicam 15 mg oral tablet (11 sources) Nonsteroidal Anti-inflammatory Drug Start: 3 End: 3 take 1 tablet by mouth once daily meloxicam (Mobic) 15 mg tablet Take 1 tablet (15 mg) by mouth once daily. 0 11/20/2022 08/26/2023 Discontinued (Therapy completed) Start: 11-20-2022 End: 10-17-2024 take 1 tablet by mouth twice daily Meloxicam 7.5 mg Tablet Discontinued 7.5 mg PO TWICE A DAY 60 30 0 November 20, 2022 1:00am October 17, 2024 11:53pm multivitamin tablet (2 sources) take 1 tablet by mouth once daily multivitamin tablet Take 1 tablet by mouth once daily. 0 Active mupirocin 0.02 mg/mg topical ointment (1 source) RNA Synthetase Inhibitor Antibacterial Start: 11-13-20 End: 08-26-20 mupirocin (Bactroban) 2 % ointment APPLY OINTMENT TO QTIP AND APPLY INSIDE EACH NOSTRIL TWICE DAILY UNTIL DAY OF SURGERY 0 11/13/2022 08/26/2023 Discontinued (Therapy completed) phenylephrine hydrochloride 25 mg/ml ophthalmic solution (7 sources) alpha-1 Adrenergic Agonist Start: 02-16-20 25 End: 02-16-20 PHENYLephrine 2.5 % 1 drop (AK-DILATE, DIDIER-SYNEPHRINE) Start: 07-20-2024 End: 07-21-2024 PHENYLephrine 2.5 % 1 Drop ( AK-DILATE, DIDIER-SYNEPHRINE) Start: 07-20-2024 End: 07-21-2024 1 Drop, BOTH EYES, DIRECT ED, Starting on Wed07/20/24 at 1300, Until Wed07/21/24 at 0059, Administer for dilation PROTECT FROM LIGHT Start: 08-04-2023 End: 08-05-2023 PHENYLephrine 2.5 % 1 Drop ( AK-DILATE, DIDIER-SYNEPHRINE) Start: 12-03-2022 End: 12-04-2022 PHENYLephrine 2.5 % 1 Drop ( AK-DILATE, DIDIER-SYNEPHRINE) Start: 10-01-2022 End: 10-02-2022 PHENYLephrine 2.5 % 1 Drop ( AK-DILATE, DIDIER-SYNEPHRINE) pioglitazone 30 mg oral tablet (20 sources) Peroxisome Proliferator Receptor alpha Agonist, Peroxisome Proliferator Receptor gamma Agonist, Thiazolidinedione Start: 04-04-2022 End: 10-17-2024 pioglitazone (ACTOS) 30 mg tablet 04/04/2022 Active prednisoLONE acetate 10 mg/ml ophthalmic suspension (6 sources) Corticosteroid Start: 08-27-2023 End: 11-04-2023 prednisoLONE acetate (PRED FORTE) 1 % ophthalmic suspension Use 1 Drop in the right eye four times daily. 5 mL 2 09/30/2023 11/04/2023 Active Comment on above: Use 1 Drop in the le ft eye four times daily. Use 1 Drop in the ri ght eye four times daily. proparacaine hydrochloride 5 mg/ml ophthalmic solution (6 sources) Local Anesthetic Start: 02-15-2025 End: 02-15-2025 proparacaine 0.5 % 1 drop (ALCAINE) Start: 11-30-2024 End: 11-30-2024 proparacaine 0.5 % 1 Drop (A LCAINE) Start: 10-01-2023 End: 10-02-2023 proparacaine 0.5 % 1 Drop (A LCAINE) Start: 08-04-2023 End: 08-05-2023 proparacaine 0.5 % 1 Drop (A LCAINE) Start: 12-03-2022 End: 12-04-2022 proparacaine 0.5 % 1 Drop (A LCAINE) Start: 10-01-2022 End: 10-02-2022 proparacaine 0.5 % 1 Drop (A LCAINE) Propylene glycol (10 sources) propylene glycol (SYSTANE COMPLETE OPHTHALMIC) Use in eyes. Active propylene glycol (SYSTANE COMPLETE OPHTHALMIC) Use in eyes. 0 Active Comment on above: Use in eyes. silver sulfADIAZINE 10 mg/ml topical cream (1 source) Sulfonamide Antibacterial Start: 12-04-2022 End: 08-26-2023 silver sulfADIAZINE (Silvadene) 1 % cream APPLY TO WOUND ONCE DAILY 0 12/04/2022 08/26/2023 Discontinued (Therapy completed) tropicamide 10 mg/ml ophthalmic solution (8 sources) Anticholinergic Start: 02-15-2025 End: 02-15-2025 tropicamide 1 % 1 drop (MYDRIACYL) Start: 07-20-2024 End: 07-21-2024 tropicamide 1 % 1 Drop (MYDR IACYL) Start: 07-20-2024 End: 07-21-2024 1 Drop, BOTH EYES, DIRECT ED, Starting on Wed07/20/24 at 1300, Until Wed07/21/24 at 0059, Administer for dilation Start: 08-04-2023 End: 08-05-2023 tropicamide 1 % 1 Drop (MYDR IACYL) Start: 12-03-2022 End: 12-04-2022 tropicamide 1 % 1 Drop (MYDR IACYL) Start: 10-01-2022 End: 10-02-2022 tropicamide 1 % 1 Drop (MYDR IACYL) Start: 09-08-2022 End: 09-09-2022 tropicamide 1 % 1 Drop (MYDR IACYL) Completed/Discontinued Medications Medication Drug Class(es) Dates Sig (Normalized) Sig (Original) acetaminophen 500 mg oral tablet (20 sources) Start: 11-20-2022 End: 10-17-2024 take 2 tablets by mouth every eight hours Acetaminophen 500 mg Tablet Discontinued 1000 mg PO EVERY 8 HOURS 180 30 0 November 20, 2022 1:00am October 17, 2024 11:52pm Start: 11-20-2022 take 1000 mg by mout h every eight hours Acetaminophen Active 1000 MG PO EVERY 8 HOURS 180 30 November 20, 2022 12:00am take 2 tablets by mo uth every six hours as needed acetaminophen (TYLENOL) 325 mg tablet Take 650 mg by mouth every 6 hours as needed. Active Comment on above: Take 650 mg by mouth every 6 hours as needed. amLODIPine 10 mg oral tablet (20 sources) Dihydropyridine Calcium Channel Ralph Start: 08-31-20 End: 10-21-20 take 1 tablet by mouth once daily Amlodipine 10 mg tablet Discontinued 10 mg PO DAILY August 31, 2022 12:00am October 21, 2024 1:09pm amLODIPine Besyl ate 10 MG Oral Tablet Quantity: 0 Refills: 0 Ordered: 02-Oct-2019 DO Active Comment on above: Take 10 mg by mouth once daily. amoxicillin 250 mg / clavulanate 125 mg oral tablet (19 sources) Penicillin-class Antibacterial Start: 03-22-2025 End: 05-16-2025 Amoxicillin-Pot Clavulanate 250-125 mg tablet Discontinued 1 {tbl} PO TWICE A DAY 78 39 0 March 22, 2025 12:00am May 16, 2025 11:34am Start: 10-17-2024 End: 11-02-2024 Amoxicillin-Pot Clavulanate 875-125 mg tablet Discontinued 1 {tbl} PO TWICE A DAY 6 3 0 October 21, 2024 1:00am November 02, 2024 12:16pm bevacizumab (Oralia's) 1.25 mg intravitreal syringe (AVASTIN) (12 sources) Start: 05-31-2025 End: 05-31-2025 bevacizumab (Oralia's) 1.25 mg intravitreal syringe (AVASTIN) Start: 05-31-2025 End: 05-31-2025 1.25 mg, ONCE, 1 dose, Start ing on Janneth 05/31/25 at 1206, Until Janneth 05/31/25 at 1206 Start: 02-15-2025 End: 02-15-2025 bevacizumab (Oralia's) 1.25 mg intravitreal syringe (AVASTIN) Start: 02-15-2025 End: 02-15-2025 1.25 mg, ONCE, 1 dose, Start ing on Janneth 02/15/25 at 1328, Until Janneth 02/15/25 at 1328 Start: 11-30-2024 End: 11-30-2024 bevacizumab (Oralia's) 1.25 mg intravitreal syringe (AVASTIN) Start: 11-30-2024 End: 11-30-2024 1.25 mg, ONCE, 1 dose, Start ing on Janneth 11/30/24 at 1026, Until Janneth 11/30/24 at 1026 Start: 10-05-2024 End: 10-05-2024 bevacizumab (Oralia's) 1.25 mg intravitreal syringe (AVASTIN) Start: 10-05-2024 End: 10-05-2024 1.25 mg, ONCE, 1 dose, Start ing on Janneth 10/05/24 at 1643, Until Janneth 10/05/24 at 1643 Start: 08-24-2024 End: 08-24-2024 bevacizumab (Oralia's) 1.25 mg intravitreal syringe (AVASTIN) Start: 08-24-2024 End: 08-24-2024 1.25 mg, ONCE, 1 dose, Start ing on Janneth 08/24/24 at 1217, Until Janneth 08/24/24 at 1217 Start: 07-20-2024 End: 07-20-2024 bevacizumab (Oralia's) 1.25 mg intravitreal syringe (AVASTIN) Start: 07-20-2024 End: 07-20-2024 1.25 mg, ONCE, 1 dose, Start ing on Janneth 07/20/24 at 1603, Until Janneth 07/20/24 at 1603 Bexagliflozin (Brenzavvy) 20 mg tablet (7 sources) Start: 12-15-2024 End: 03-12-2025 take 1 tablet by mouth once daily Bexagliflozin (Brenzavvy) 20 mg tablet Discontinued 20 mg PO daily December 15, 2024 1:00am March 12, 2025 1:13pm Start: 12-15-2024 End: 03-12-2025 take 1 tablet by mouth once daily Bexagliflozin (Brenzavvy) 20 mg tablet Discontinued 20 mg PO daily December 15, 2024 1:00am March 12, 2025 1:13pm Start: 12-15-2024 take 1 tablet by [facility] once daily Bexagliflozin (Brenzavvy) 20 mg tablet Active 20 mg PO daily December 15, 2024 1:00am dapagliflozin 10 mg oral tablet (6 sources) Sodium-Glucose Cotransporter 2 Inhibitor Start: 03-12-2025 End: 03-23-2025 take 1 tablet by mouth once daily Dapagliflozin Propanediol (Farxiga) 10 mg tablet Discontinued 10 mg PO daily 11 02March 12, 2025 12:00am March 23, 2025 11:21am docusate sodium 50 mg / sennosides, care home 8.6 mg oral tablet (10 sources) Start: 11-20-2022 End: 10-17-2024 Sennosides-Docusate Sodium (Stool Softener-Stimulant Laxat) 8.6-50 mg Tablet Discontinued 2 {tbl} PO TWICE A DAY 28 7 0 November 20, 2022 1:00am October 17, 2024 11:53pm doxycycline monohydrate 100 mg oral capsule (5 sources) Tetracycline-class Drug Start: 03-22-2025 End: 05-16-2025 take 1 capsule by mouth twice daily Doxycycline Monohydrate 100 mg Capsule Discontinued 100 mg PO TWICE A DAY 78 39 0 March 22, 2025 12:00am May 16, 2025 11:34am famotidine 20 mg oral tablet (11 sources) Histamine-2 Receptor Antagonist Start: 11-20-2022 End: 10-17-2024 take 1 tablet by mouth once daily Famotidine 20 mg Tablet Discontinued 20 mg PO DAILY 30 30 0 November 20, 2022 1:00am October 17, 2024 11:53pm fluorometholone 1 mg/ml ophthalmic suspension (11 sources) Corticosteroid Start: 08-25-2023 take 1 drop(s) into the eye(s) three times daily fluorometholone (FML) 0.1 % ophthalmic suspension Administer 1 drop into affected eye(s) 3 times a day. 0 08/25/2023 Active Start: 08-18-2023 End: 10-01-2023 fluorometholone (FML LIQUID FILM) 0.1 % ophthalmic suspension Use 1 Drop in the right eye three times a day. 5 mL 1 08/27/2023 10/01/2023 Discontinued (Course of therapy completed) Start: 08-04-2023 fluorometholon e (FML LIQUID FILM) 0.1 % ophthalmic suspension Use 1 Drop in both eyes three times daily. 5 mL 1 08/04/2023 Active Comment on above: Use 1 Drop in both e yes three times daily. Use 1 Drop in both e yes three times a day. Use 1 Drop in the ri ght eye three times a day. Use 1 Drop in the le ft eye three times a day. 3 ml insulin glargine 100 unt/ml pen injector (4 sources) Insulin Analog Start: 5 End: 5 Insulin Glargine (Lantus Solostar U-100 Insulin) 100 unit/mL (3 mL) insulin pen Discontinued 10 U SC EVERY EVENING April 04, 2025 12:00am May 16, 2025 11:34am lisinopril 10 mg oral tablet (18 sources) Angiotensin Converting Enzyme Inhibitor Start: 4 End: take 1 tablet by mouth once daily Lisinopril 10 mg tablet Discontinued 10 mg PO DAILY 30 30 2 October 21, 2024 1:00am December 01, 2024 4:58pm On Hold: Resume on 12/11/24. Hold until you see cardiology in the office for follow-up. take 10 mg by mouth once daily l isinopril (ZESTRIL) 40 mg tablet Take 10 mg by mouth once daily. Active lisinopril (ZEST RIL) 40 mg tablet Take 40 mg by mouth. Active Comment on above: Take 40 mg by mouth. metFORMIN hydrochloride 500 mg oral tablet (20 sources) Biguanide Start: End: take 1 tablet by mouth twice daily Metformin 500 mg tablet Discontinued 500 mg PO TWICE A DAY March 12, 2025 12:00am March 23, 2025 11:21am Start: 08-31-2022 End: 10-17-2024 take 1 tablet by mouth twice daily Metformin 500 mg tablet extended release 24 hr Discontinued 500 mg PO TWICE A DAY August 31, 2022 12:00am October 17, 2024 11:53pm Start: 04-04-2022 metFORMIN ER ( GLUCOPHAGE XR) 500 mg 24 hr tablet 04/04/2022 Active take 1 tablet by diamond th twice daily at mealtime metFORMIN (Glucophage) 500 mg tablet Take 1 tablet (500 mg) by mouth 2 times a day with meals. 0 Active metFORMIN hydrochloride 500 mg / pioglitazone 15 mg oral tablet (20 sources) Biguanide, Peroxisome Proliferator Receptor alpha Agonist, Peroxisome Proliferator Receptor gamma Agonist, Thiazolidinedione Start: 10-17-2024 End: 03-12-2025 Pioglitazone-Metformin 15-500 mg tablet Discontinued 1 {tbl} PO TWICE A DAY October 17, 2024 1:00am March 12, 2025 1:10pm diabetes Start: 05-11-2017 pioglitazone-m etformin (ACTOPlus Met) 15-500 mg tablet Take by mouth. 0 05/11/2017 Active Start: 10-09-2014 End: 05-05-2022 take 1 tablet by mouth twice daily at mealtime Pioglitazone-metFORMIN 15-500 mg per tablet Take 1 tablet by mouth twice daily with meals. 0 10/09/2014 05/05/2022 Discontinued (Duplicate Entry) Comment on above: Take 1 tablet by diamond th twice daily with meals. 5 ml midazolam 1 mg/ml injection (2 sources) Benzodiazepine Start: 09-30-2023 End: 09-30-2023 midazolam (Versed) injection 1 mg Start: 08-26-2023 End: 08-26-2023 midazolam (Versed) injection 1 mg 2 ml ondansetron 2 mg/ml injection (2 sources) Serotonin-3 Receptor Antagonist Start: 09-30-2023 End: 09-30-2023 ondansetron (Zofran) injection 4 mg Start: 08-26-2023 End: 08-26-2023 ondansetron (Zofran) injecti on 4 mg oxyCODONE hydrochloride 5 mg oral tablet (10 sources) Opioid Agonist Start: 11-20-2022 End: 10-17-2024 take 5-10 mg by mouth every four hours as needed for pain Oxycodone 5 mg Tablet Discontinued 5 - 10 mg PO EVERY 4 HOURS NEEDED as needed for Pain Score 4-10 42 7 0 November 20, 2022 October 17, 2024 11:52pm Osteoarthritis of right hip Unilateral primary osteoarthritis, right hip Phenylephrine / Tropicamide (2 sources) Anticholinergic, alpha-1 Adrenergic Agonist Start: 09-30-2023 End: 09-30-2023 phenylephrine-tropica mide 10 %-1 % ophthalmic solution 1 drop Start: 08-26-2023 End: 08-26-2023 phenylephrine-tropicamide 10 %-1 % ophthalmic solution 1 drop polyvinyl alcohol 0.014 ml/m l / povidone 6 mg/ml ophthalmic solution (2 sources) Start: 09-30-2023 End: 09-30-2023 lubricating eye drops ophtha lmic solution 1 drop Start: 08-26-2023 End: 08-26-2023 lubricating eye drops ophtha lmic solution 1 drop povidone-iodine 50 mg/ml ophthalmic solution (2 sources) Antiseptic Start: 09-30-2023 End: 09-30-2023 povidone-iodine 5 % ophthalmic solution Start: 08-26-2023 End: 08-26-2023 povidone-iodine 5 % ophthalm ic solution 1 Application quinapril 40 mg oral tablet (20 sources) Angiotensin Converting Enzyme Inhibitor Start: 08-31-2022 End: 10-21-2024 take 1 tablet by mouth once daily Quinapril 40 mg tablet Discontinued 40 mg PO DAILY August 31, 2022 12:00am October 21, 2024 1:13pm Start: 05-11-2017 End: 08-26-2023 take 2 tablets by mouth once daily quinapril (ACCUPRIL) 20 mg tablet Take 2 tablets by mouth once daily. 60 tablet 5 07/13/2018 Active Quinapril HCl - 40 MG Oral Tablet Quantity: 0 Refills: 0 Ordered: 02-Oct-2019 DO Active Comment on above: Take 2 tablets by [facility] once daily. tetracaine hydrochloride 5 mg/ml ophthalmic solution (2 sources) [facility] Local Anesthetic Start: 09-30-2023 End: 09-30-2023 tetracaine (Altacaine) 0.5 % ophthalmic solution 1 drop Start: 08-26-2023 End: 08-26-2023 tetracaine (Altacaine) 0.5 % ophthalmic solution 1 drop Problems Active Problems Problem Classification Problem Date Documented Da te Episodic/Chronic Acute and unspecified renal failure (20 sources) Acute renal failure syndrome; Translations: [Acute kidney failure, unspecified] Onset: 5 10-29-2024 Episodic Acute cerebrovascular disease (20 sources) Cerebral infarction due to unspecified occlusion or stenosis of left posterior cerebral artery; Translations: [Cerebral infarction, unspecified] Onset: 8 06-02-2018 Chronic Cancer of uterus (20 sources) History of malignant neoplasm of endometrium; Translations: [Personal history of malignant neoplasm of other parts of uterus] Episodic Cataract (20 sources) Bilateral senile combined form cataracts of eyes; Translations: [Combined forms of age-related cataract, bilateral] Onset: 5 Resolved: 3 02-15-2019 Chronic Chronic kidney disease (18 sources) Chronic kidney disease stage 3; Translations: [Stage 3 chronic kidney disease] Onset: 5 12-01-2024 Chronic Chronic kidney disease (3 sources) Chronic kidney disease; Translations: [Chronic kidney disease, stage 3a] Onset: 5 Chronic ulcer of skin (11 sources) Non-pressure chronic ulcer of other part of right foot with necrosis of bone; Translations: [Non-pressure chronic ulcer of other part of right foot with necrosis of bone] Onset: 5 03-16-2025 Chronic Congestive heart failure; nonhypertensive (20 sources) Congestive heart failure; Translations: [Heart failure, unspecified] Onset: 4 11-10-2024 Chronic Diabetes mellitus with complications (20 sources) Type 2 diabetes mellitus; Translations: [Type 2 diabetes mellitus with mild nonproliferative diabetic retinopathy without macular edema, right eye] Onset: 6 05-07-2018 Chronic Diabetes mellitus without complication (20 sources) Diabetes mellitus type 2 without retinopathy; Translations: [Type 2 diabetes mellitus without complications] Onset: 4 Chronic Comment on above: ON MED Disorders of lipid metabolism (20 sources) Hypercholesterolemia; Translations: [Pure hypercholesterolemia, unspecified] Onset: 3 09-27-2023 Chronic Comment on above: ON MED Essential hypertension (20 sources) Essential (primary) hypertension; Translations: [Essential hypertension] Onset: 8 05-07-2018 Chronic Comment on above: CONTROLLED WITH MEDS Fluid and electrolyte disorders (20 sources) Metabolic acidosis; Translations: [Metabolic acidosis] Onset: 5 10-29-2024 Episodic Glaucoma (20 sources) Ocular hypertension; Translations: [Ocular hypertension, left eye] Onset: 3 Chronic Heart valve disorders (20 sources) Aortic valve stenosis; Translations: [Nonrheumatic aortic (valve) stenosis] Onset: 5 12-01-2024 Chronic Hypertension with complications and secondary hypertension (1 source) Hypertensive heart disease with heart failure; Translations: [Hypertensive heart disease with heart failure] Onset: 5 Chronic Infective arthritis and osteomyelitis (except that caused by tuberculosis or sexually transmitted disease) (20 sources) Osteomyelitis of forefoot; Translations: [Osteomyelitis, unspecified] Onset: 5 03-17-2025 Chronic Nutritional deficiencies (1 source) Vitamin D deficiency, unspecified; Translations: [Vitamin D deficiency, unspecified] Onset: 5 Chronic Osteoarthritis (14 sources) Osteoarthritis of right hip joint; Translations: [Unilateral primary osteoarthritis, right hip] Chronic Other aftercare (1 source) 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; Translations: [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] Onset: 5 Episodic Other and ill-defined heart disease (11 sources) Left ventricular cardiac dysfunction; Translations: [Heart disease, unspecified] 10-19-2024 Chronic Other and ill-defined heart disease (2 sources) Heart disease, unspecified; Translations: [Heart disease, unspecified] Onset: 4 Chronic Other circulatory disease (20 sources) H/O: hypertension; Translations: [Personal history of other diseases of circulatory system] Episodic Other circulatory disease (10 sources) Ecchymosis; Translations: [Hemorrhage, not elsewhere classified] 03-22-2025 Episodic Other connective tissue disease (19 sources) History of repair of hip joint; Translations: [Hip joint replacement] Chronic Other connective tissue disease (1 source) Presence of right artificial hip joint; Translations: [Presence of right artificial hip joint] Onset: 3 Chronic Other connective tissue disease (1 source) Soft tissue disorder, unspecified; Translations: [Soft tissue disorder, unspecified] Onset: 5 Episodic Other gastrointestinal disorders (1 source) Diarrhea, unspecified; Translations: [Diarrhea, unspecified] Onset: 5 Episodic Other lower respiratory disease (8 sources) Dyspnea; Translations: [Dyspnea, unspecified] 11-10-2024 Episodic Other lower respiratory disease (8 sources) Hypoxia; Translations: [Hypoxemia] 11-10-2024 Episodic Other lower respiratory disease (2 sources) Hypoxemia; Translations: [Hypoxemia] Onset: 4 Episodic Other nervous system disorders (19 sources) Abnormal gait; Translations: [Abnormality of gait] Episodic Other non-traumatic joint disorders (20 sources) Hip pain; Translations: [Pain in joint, pelvic region and thigh] Episodic Other non-traumatic joint disorders (2 sources) Pain in unspecified hip; Translations: [Pain in joint, pelvic region and thigh] Episodic Other non-traumatic joint disorders (19 sources) Decreased range of hip movement; Translations: [Stiffness of joint, not elsewhere classified, pelvic region and thigh] Episodic Other nutritional; endocrine; and metabolic disorders (2 sources) Severe obesity; Translations: [Morbid (severe) obesity due to excess calories] Onset: 3 09-30-2023 Chronic Other nutritional; endocrine; and metabolic disorders (8 sources) Body mass index 40+ - severely obese; Translations: [Morbid (severe) obesity due to excess calories] 10-29-2024 Chronic Other nutritional; endocrine; and metabolic disorders (1 source) Morbid (severe) obesity due to excess calories; Translations: [Morbid (severe) obesity due to excess calories] Onset: 4 Chronic Other nutritional; endocrine; and metabolic disorders (1 source) Body mass index (BMI) 45.0-49.9, adult; Translations: [Body mass index [BMI] 45.0-49.9, adult] Onset: 4 Chronic Other nutritional; endocrine; and metabolic disorders (20 sources) H/O: hypothyroidism; Translations: [Personal history of other endocrine, metabolic, and immunity disorders] Episodic Other nutritional; endocrine; and metabolic disorders (20 sources) H/O: diabetes mellitus; Translations: [Personal history of other endocrine, metabolic, and immunity disorders] Episodic Peripheral and visceral atherosclerosis (1 source) Unspecified atherosclerosis; Translations: [Unspecified atherosclerosis] Onset: 8 Chronic Pulmonary heart disease (17 sources) Pulmonary hypertension; Translations: [Pulmonary hypertension, unspecified] Onset: 5 10-19-2024 Chronic Residual codes; unclassified (20 sources) History of clinical finding in subject; Translations: [Asymptomatic postmenopausal status (age-related) (natural)] Episodic Comment on above: 2009; Residual codes; unclassified (20 sources) Past history of procedure; Translations: [Other specified personal history presenting hazards to health] Episodic Comment on above: 03/10/2019; 09/13/2017; Residual codes; unclassified (20 sources) History of past delivery; Translations: [Personal history of other genital system and obstetric disorders] Episodic Comment on above: 1977; 39 WEEKS; MALE ; 6LBS [id number]; 39 WEEKS; MALE; 6LBS 14OZ; Residual codes; unclassified (3 sources) Asymptomatic menopausal state; Translations: [Asymptomatic menopausal state] Onset: 3 Episodic Retinal detachments; defects; vascular occlusion; and retinopathy (20 sources) Occlusion of left central retinal artery; Translations: [Central retinal artery occlusion, left eye] Onset: 8 05-06-2018 Chronic Unclassified (1 source) Appointment is with Janene Renner Unclassified (1 source) Acidosis, unspecified; Translations: [Acidosis, unspecified] Onset: Past or Other Problems Problem Classification Problem Date Documented Date Episodic/Chronic Administrative/social admission (20 sources) Impaired ability to transfer location; Translations: [Other symptoms involving nervous and musculoskeletal systems] Onset: 02-15-2023 Episodic Blindness and vision defects (20 sources) Unspecified visual field defects; Translations: [Hypermetropia] Onset: 01-02-2015 01-02-2015 Episodic Other circulatory disease (1 source) Hemorrhage, not elsewhere classified; Translations: [Hemorrhage, not elsewhere classified] Onset: 03-23-2025 Episodic Other eye disorders (18 sources) H/O: L cataract extraction; Translations: [Cataract extraction status, left eye] Onset: 09-27-2023 08-27-2023 Episodic Other eye disorders (14 sources) H/O: R cataract extraction; Translations: [Cataract extraction status, right eye] Onset: 10-01-2023 10-01-2023 Episodic Other lower respiratory disease (1 source) Other forms of dyspnea; Translations: [Other forms of dyspnea] Onset: 12-20-2024 Episodic Other lower respiratory disease (1 source) Shortness of breath; Translations: [Shortness of breath] Onset: 11-13-2024 Episodic Other nervous system disorders (1 source) Unspecified abnormalities of gait and mobility; Translations: [Unspecified abnormalities of gait and mobility] Onset: 02-15-2023 Episodic Other non-traumatic joint disorders (1 source) Pain in right hip; Translations: [Pain in right hip] Onset: 02-15-2023 Episodic Other non-traumatic joint disorders (1 source) Stiffness of right hip, not elsewhere classified; Translations: [Stiffness of right hip, not elsewhere classified] Onset: 02-15-2023 Episodic Other screening for suspected conditions (not mental disorders or infectious disease) (20 sources) Patient encounter status; Translations: [Special screening for malignant neoplasms of vagina] Onset: 07-20-2023 Episodic Comment on above: 10/01/2017-NEGATIVE(YEARLY)09/25/2016-IETXSDLM83/12/2017-NEGATIV E (REPEAT); Pneumonia (except that caused by tuberculosis or sexually transmitted disease) (9 sources) Pneumonia; Translations: [Pneumonia, unspecified organism] Onset: 11-02-2024 10-29-2024 Episodic Respiratory failure; insufficiency; arrest (adult) (9 sources) Acute hypoxemic respiratory failure; Translations: [Acute respiratory failure with hypoxia] Onset: 11-02-2024 10-29-2024 Episodic Retinal detachments; defects; vascular occlusion; and retinopathy (20 sources) Multiple defects 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; Translations: [Multiple defects 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, unspecified eye] Onset: 01-02-2015 01-02-2015 Episodic Septicemia (except in labor) (10 sources) Sepsis; Translations: [Sepsis, unspecified organism] Onset: 11-02-2024 10-29-2024 Episodic Results Test Name Value Interpretation Reference Range Facility AVASTIN (BEVACIZUMAB) 1.25MG INTRAVITREAL INJECTION OD (RIGHT EYE)on 05-31-2025 [facility] OCT MACULA CIRRUS OU (BOTH E YES)on 05-31-2025 [facility] Radiology Study observation (narrative) [facility] [id number] 05-26-2025 [facility]. COMMENT Normal . [facility] Comment on above: Order Comment: [id number] CULTURE Result Comment: Test Ordered: [id number] Stool CultureSalmonella/Shigella Screen Note: Final report Reference Range: .Result 1 Comment CB Reference Range: .No Salmonella or Shigella recovered.Campylobacter Culture Note: Final report Reference Range: .Result 1 Comment CB Reference Range: .No Campylobacter species isolated.E coli Shiga Toxin EIA Negative CB Reference Range: NegativePerformed at: - [facility] [address] [id number] Director: Rhys Fontanez PhD, Phone: [phone] Performed By: #### M [phone], [id number] ####[facility] [id number] [facility] [place], [address] CDIFF (PCR)on 05-21-20[address] CDIFF [address] [facility] Comment on above: Performed By: #### M 925.1472 ####[facility] [address] [place], [address] Clostridium Diff Toxin/Agon 05-21-2025 CDIFF (EIA) Normal [facility] Comment on above: Performed By: #### M 100.6795, L3410.9992 ####[facility] [address] [place], [place], [id number] Clostridium difficile detect ion by polymerase chain reactionOrdered By: Donal Castle on 05-21-2025 C. difficile DNA KATYA+probe Ql (Unsp spec) [facility] Stool Clostridium difficile detectionOrdered By: Donal Castle on 05-21-2025 C. difficile Ql (Stl) [facility] [place] Vitamin D 1,25-Dihydroxyon 0 05-21-2025 VIT D 1,25 DIHY 21.6 pg/mL Abnormal 24.8-81.[address] [facility] Comment on above: Order Comment: Order Date: 04/27/25Order Info: [id number] - [id number] Result Comment: Perf ormed at: [facility] [address] [id number] Director: Jono Toscano MD, Phone: [phone] Performed By: #### L 500.4050, L3300.0960, L501.9520, L509.1000 ####[facility] [address] [place], [place], [id number] Anion gap in Serum or Plasma Ordered By: Donal Castle on 05-16-2025 Anion gap [Moles/Vol] 12 mmol/L 5-15 [facility] [place] BUN/creatinine ratioOrdered By: Donal Castle on 05-16-2025 Urea nitrogen/Creatinine [Mass ratio] 7.5 mg/mg Low 10-[address] [facility] Bilirubin, totalOrdered By: Donal Castle on 05-16-2025 Bilirubin [Mass/Vol] 0.74 mg/dL 0.00-1.30 [facility] Calculated very low density lipoprotein (VLDL) cholesterol measurementOrdered By: Onofre Claros on 05-16-2025 Calculated very low density lipoprotein (VLDL) cholesterol measurement 22 mg/dL 5-[address] [facility] Carbon dioxide, total [Moles /volume] in Central venous bloodOrdered By: Donal Castle on 05-16-2025 CO2 [Moles/Vol] 30.5 mmol/L 21.0-32.[address] [facility] Cardiology Visit Reporton Cardiology Visit Report Normal [facility] Chloride assayOrdered By: Sabino Castle on 05-16-2025 Chloride [Moles/Vol] 97 mmol/L Low 98-108 [facility] Comprehensive Metabolic Prof ilon 05-16-2025 Albumin [Mass/Vol] 3.8 g/dL Normal 3.4-4.8 [facility] Comment on above: Order Comment: Order Date: 04/27/25Order Info: 0786-1 - CMPOrder Info: 3016-3 - TSH Performed By: #### L 500.4050, L3300.0960, L501.9520, L509.1000 ####[facility] [address] [place], [address] Albumin/Globulin [Mass ratio] 1.5 {ratio} Normal 0.9-2.[address] [facility] Comment on above: Order Comment: Order Date: 04/27/25Order Info: 0786-1 - CMPOrder Info: 3016-3 - TSH Performed By: #### L 500.4050, L3300.0960, L501.9520, L509.1000 ####[facility] [address] [place], [address] ALK PHOS 137 U/L High 35-[address] [facility] Comment on above: Order Comment: Order Date: 04/27/25Order Info: 0786-1 - CMPOrder Info: 3016-3 - TSH Performed By: #### L 500.4050, L3300.0960, L501.9520, L509.1000 ####[facility] [address] [place], [address] ALT [Catalytic activity/Vol] 12 U/L Normal <=[address] [facility] Comment on above: Order Comment: Order Date: 04/27/25Order Info: 0786-1 - CMPOrder Info: 3016-3 - TSH Performed By: #### L 500.4050, L3300.0960, L501.9520, L509.1000 ####[facility] [address] [place], [address] AST [Catalytic activity/Vol] 23 U/L Normal <=[address] [facility] Comment on above: Order Comment: Order Date: 04/27/25Order Info: 0786-1 - CMPOrder Info: 3016-3 - TSH Performed By: #### L 500.4050, L3300.0960, L501.9520, L509.1000 ####[facility] [address] [place], [address] Bilirubin [Mass/Vol] 0.74 mg/dL Normal 0.00-1.30 [facility] Comment on above: Order Comment: Order Date: 04/27/25Order Info: 0786-1 - CMPOrder Info: 3015-3 - TSH Performed By: #### L 500.4050, L3300.0960, L501.9520, L509.1000 ####[facility] [address] [place], [address] BUN/CRE 7.5 RATIO Low 10-[address] [facility] Comment on above: Order Comment: Order Date: 04/27/25Order Info: 0786-1 - CMPOrder Info: 3016-3 - TSH Performed By: #### L 500.4050, L3300.0960, L501.9520, L509.1000 ####[facility] [address] [place], [address] Calcium [Mass/Vol] 9.3 mg/dL Normal 7.6-11.0 [facility] Comment on above: Order Comment: Order Date: 04/27/25Order Info: 0786-1 - CMPOrder Info: 3015-3 - TSH Performed By: #### L 500.4050, L3300.0960, L501.9520, L509.1000 ####[facility] [address] [place], [address] Chloride [Moles/Vol] 97 mmol/L Low 98-108 [facility] Comment on above: Order Comment: Order Date: 04/27/25Order Info: 0786-1 - CMPOrder Info: 3016-3 - TSH Performed By: #### L 500.4050, L3300.0960, L501.9520, L509.1000 ####[facility] [address] [place], [address] CO2 [Moles/Vol] 30.5 mmol/L Normal 21.0-32.[address] [facility] Comment on above: Order Comment: Order Date: 04/27/25Order Info: 0786-1 - CMPOrder Info: 3016-3 - TSH Performed By: #### L 500.4050, L3300.0960, L501.9520, L509.1000 ####[facility] [address] [place], [address] Creatinine [Mass/Vol] 2.00 mg/dL High 0.70-1.20 [facility] Comment on above: Order Comment: Order Date: 04/27/25Order Info: 0786-1 - CMPOrder Info: 3016-3 - TSH Performed By: #### L 500.4050, L3300.0960, L501.9520, L509.1000 ####[facility] [address] [place], [address] GAP 12 Normal 5-[address] [facility] Comment on above: Order Comment: Order Date: 04/27/25Order Info: 0786-1 - CMPOrder Info: 3016-3 - TSH Performed By: #### L 500.4050, L3300.0960, L501.9520, L509.1000 ####[facility] [address] [place], [address] GFR/1.73 sq M.predicted among non-blacks MDRD (S/P/Bld) [Vol rate/Area] 26 mL/min/{1.73_m2} Low >[address] [facility] Comment on above: Order Comment: Order Date: 04/27/25Order Info: 0786-1 - CMPOrder Info: 3016-3 - TSH Result Comment: mL/m in/1.73m2 CKD-EPI Creatinine Equation (2020) Performed By: #### L 500.4050, L3300.0960, L501.9520, L509.1000 ####[facility] [address] [place], [address] Globulin (S) [Mass/Vol] 2.6 g/dL Normal 2.2-4.2 [facility] Comment on above: Order Comment: Order Date: 04/27/25Order Info: 0786-1 - CMPOrder Info: 3016-3 - TSH Performed By: #### L 500.4050, L3300.0960, L501.9520, L509.1000 ####[facility] [address] [place], [address] Glucose [Mass/Vol] 126 mg/dL High 70-99 [facility] Comment on above: Order Comment: Order Date: 04/27/25Order Info: 0786-1 - CMPOrder Info: 3016-3 - TSH Performed By: #### L 500.4050, L3300.0960, L501.9520, L509.1000 ####[facility] [address] [place], [address] Potassium [Moles/Vol] 4.5 mmol/L Normal 3.3-5.1 [facility] Comment on above: Order Comment: Order Date: 04/27/25Order Info: 0786-1 - CMPOrder Info: 3016-3 - TSH Performed By: #### L 500.4050, L3300.0960, L501.9520, L509.1000 ####[facility] [address] [place], [address] Sodium [Moles/Vol] 139 mmol/L Normal 133-145 [facility] Comment on above: Order Comment: Order Date: 04/27/25Order Info: 0786-1 - CMPOrder Info: 3016-3 - TSH Performed By: #### L 500.4050, L3300.0960, L501.9520, L509.1000 ####[facility] [address] [place], [address] T PROT 6.4 g/dL Normal 5.9-8.[address] [facility] Comment on above: Order Comment: Order Date: 04/27/25Order Info: 0786-1 - CMPOrder Info: 3 - TSH Performed By: #### L 500.4050, L3300.0960, L501.9520, L509.1000 ####[facility] [address] [place], [address] Urea nitrogen [Mass/Vol] 15 mg/dL Normal 4-[address] [facility] Comment on above: Order Comment: Order Date: 04/27/25Order Info: 0786-1 - CMPOrder Info: 3 - TSH Performed By: #### L 500.4050, L3300.0960, L501.9520, L509.1000 ####[facility] [address] [place], [address] Glomerular filtration rate ( GFR) estimation/1.73 sq m using serum, plasma, or whole bOrdered By: Donal Castle on 05-16-2025 GFR/1.73 sq M.predicted among non-blacks MDRD (S/P/Bld) [Vol rate/Area] 26 mL/min/{1.73_m2} Low >[address] [facility] Comment on above: mL/min/1.73m2 CKD-EP I Creatinine Equation (2020) LDL calc ser/plasOrdered By: Onofre Claros on 05-16-2025 Cholesterol in LDL [Mass/Vol] 33 mg/dL [facility] Comment on above: Uearninxrp=068-850 m g/dL & Higher Fruw=359 mg/dL or greater Laboratory - Chemistry and C hemistry - challengeOrdered By: Donal Castle on 05-16-2025 AST [Catalytic activity/Vol] 23 U/L <[address] [facility] Lipid Profileon 05-16-2025 CHOL:HDL 1.[address] [facility] Comment on above: Performed By: #### L 500.4100 ####[facility] [address] [place], [address] Cholesterol [Mass/Vol] 117 mg/dL Normal <=200 [facility] Comment on above: Result Comment: Chol esterol level, Desirable <200 mg/dLBorderline high cholesterol 200-239 mg/dLHigh cholesterol >=240 mg/dLRecommendations of the NCEP Adult Treatment Panel for thefollowing risk-cutoff thresholds for the [place] Americanpulation. Performed By: #### L 500.4100 ####[facility] [address] [place], [address] Cholesterol in HDL [Mass/Vol] 62 mg/dL Normal [facility] Comment on above: Result Comment: Keisha onal Cholesterol Education Program (NCEP) guidelines:<40 mg/dL: Low HDL-cholesterol (major risk factor for CHD)>= 60 mg/dL: High HDL-cholesterol (negative risk factor forCHD)HDL-cholesterol is affected by a number of factors, e.g.smoking, exercise, hormones, sex and age. Performed By: #### L 500.4100 ####[facility] [address] [place], [address] Cholesterol in LDL [Mass/Vol] 33 mg/dL Normal [facility] Comment on above: Result Comment: Bord scgzca=414-556 mg/dL Higher Wjui=335 mg/dL or greater Performed By: #### L 500.4100 ####[facility] [address] [place], [address] Cholesterol in VLDL [Mass/Vol] 22 mg/dL Normal 5-[address] [facility] Comment on above: Performed By: #### L 500.4100 ####[facility] [address] [place], [address] Triglyceride [Mass/Vol] 108 mg/dL Normal [facility] Comment on above: Result Comment: The drugs N-Acetylcysteine and Metamizole may falselydepress this assay.Normal range: <150 mg/dLBorderline High: 150-199 mg/dLHigh: 200-499 mg/dLVery High: >500 mg/dL Performed By: #### L 500.4100 ####[facility] [address] [place], [address] PTHINon 05-16-2025 PTH 136 pg/mL High 11-[address] [facility] Comment on above: Order Comment: Order Date: 04/27/25Order Info: 0565-1 - PTHIN Performed By: #### L 500.4050, L3300.0960, L501.9520, L509.1000 ####[facility] [address] [place], [address] Potassium measurement (mass/ volume)Ordered By: Donal Castle on 05-16-2025 Potassium (Unsp spec) [Mass/Vol] 4.5 mmol/L 3.3-5.[address] [facility] Screening total cholesterol/ high density lipoprotein (HDL) cholesterol ratioOrdered By: Onofre Claros on 05-16-2025 Cholesterol.total/Tati sterol in HDL [Mass ratio] 1.88 {ratio} [facility] Serum creatinine measurement (mass/volume)Ordered By: Donal Castle on 05-16-2025 Creatinine [Mass/Vol] 2.00 mg/dL High 0.70-1.20 [facility] Serum globulin measurementOr dered By: Donal Castle on 05-16-2025 Globulin (S) [Mass/Vol] 2.6 g/dL 2.2-4.2 [facility] Serum glucose measurement (m ass/volume)Ordered By: Donal Castle on 05-16-2025 Glucose [Mass/Vol] 126 mg/dL High 70-99 [facility] Serum or plasma alanine price otransferase (ALT) measurementOrdered By: Donal Castle on 05-16-2025 ALT [Catalytic activity/Vol] 12 U/L <[address] [facility] Serum or plasma albumin ras urement (mass/volume)Ordered By: Donal Castle on 05-16-2025 Albumin [Mass/Vol] 3.8 g/dL 3.4-4.8 [facility] Serum or plasma albumin/glob ulin mass ratioOrdered By: Donal Castle on 05-16-2025 Albumin/Globulin [Mass ratio] 1.5 {ratio} 0.9-2.[address] [facility] Serum or plasma alkaline destini sphatase measurementOrdered By: Donal Castle on 05-16-2025 ALP [Catalytic activity/Vol] 137 U/L High 35-[address] [facility] Serum or plasma calcitriol m easurement (mass/volume)Ordered By: Donal Castle on 05-16-2025 1,25-dihydroxyvitamin D3 [Mass/Vol] 21.6 pg/mL Low 24.8-81.[address] [facility] Comment on above: Performed at: [address] [id number] Director: Jono Toscano MD, Phone: [phone] Serum or plasma calcium ras urement (mass/volume)Ordered By: Donal Castle on 05-16-2025 Calcium [Mass/Vol] 9.3 mg/dL 7.6-11.0 [facility] Serum or plasma cholesterol in HDL measurement (mass/volume)Ordered By: Onofre Claros on 05-16-2025 Cholesterol in HDL [Mass/Vol] 62 mg/dL >[address] [facility] Comment on above: National Cholesterol Education Program (NCEP) guidelines:<40 mg/dL: Low HDL-cholesterol (major risk factor for CHD)>= 60 mg/dL: High HDL-cholesterol (negative risk factor for CHD)HDL-cholesterol is affected by a number of factors, e.g. smoking, exercise, hormones, sex and age. Serum or plasma cholesterol measurement (mass/volume)Ordered By: Onofre Claros on 05-16-2025 Cholesterol [Mass/Vol] 117 mg/dL <201 [facility] Comment on above: Cholesterol level, D esirable <200 mg/dLBorderline high cholesterol 200-239 mg/dLHigh cholesterol >=240 mg/dLRecommendations of the NCEP Adult Treatment Panel for the following risk-cutoff thresholds for the [place] population. Serum or plasma urea nitroge n measurement (mass/volume)Ordered By: Donal Valladareske on 05-16-2025 Urea nitrogen [Mass/Vol] 15 mg/dL 4-[address] [facility] Sodium levelOrdered By: Alka Castle on 05-16-2025 Sodium [Moles/Vol] 139 mmol/L 133-145 [facility] TSH DL <= 0.005 mIU/L QnOrde red By: Donal Valladareske on 05-16-2025 TSH Qn 2.260 uIU/mL 0.300-4.[address] [facility] Thyroid Stim Hormone (TSH)on 05-16-2025 TSH 2.260 uIU/mL Normal 0.300-4.[address] [facility] Comment on above: Order Comment: Order Date: 04/27/25Order Info: 0786-1 - CMPOrder Info: 3016-3 - TSH Performed By: #### L 500.4050, L3300.0960, L501.9520, L509.1000 ####[facility] [address] [place], [place], [address] Total proteinOrdered By: Shadia Castle on 05-16-2025 Protein [Mass/Vol] 6.4 g/dL 5.9-8.4 [facility] Triglycerides measurementOrd ered By: Onofre Claros on 05-16-2025 Triglyceride [Mass/Vol] 108 mg/dL <199 [facility] Comment on above: The drugs N-Acetylcy steine and Metamizole may falsely depress this assay. Normal range: <150 mg/dLBorderline High: 150-199 mg/dLHigh: 200-499 mg/dLVery High: >500 mg/dL Culture, Fungus 8482on 04-20 CUF Normal [facility] Comment on above: Performed By: #### M 600.2000, M600.2200 ####[facility] [address] [place], [place], [address] Fungus Stain 8136on 04-20-20 [address] FUNST [address] [facility] Comment on above: Performed By: #### M 600.2000, M600.2200 ####[facility] [address] [place], [address] Culture, Anaerobic Any Sourc cecil 04-06-2025 CUAN COLLECTED IN [facility] T GREAT TOE DISTAL PHALANX No anaerobic bacteria isolated. Normal [facility] Comment on above: Performed By: #### M 100.2000, M100.4001, M100.3000 ####[facility] [address] [place], [address] Wound Cultureon 04-06-[address] [facility] Comment on above: Performed By: #### M 100.2000, M100.4001, M100.3000 ####[facility] [address] [place], [address] Cardiology Visit Reporton Cardiology Visit Report Normal [facility] Basic Metabolic Profile (BMP )on 03-27-2025 BUN Normal 4-[address] [facility] Comment on above: Result Comment: Canc elled via OM: Order cancelled - Patient discharged Performed By: #### L 100.0500, L500.2500 ####[facility] [address] [place], [address] BUN/CRE Normal 10-[address] [facility] Comment on above: Result Comment: Canc elled via OM: Order cancelled - Patient discharged Performed By: #### L 100.0500, L500.2500 ####[facility] [address] [place], [address] Calcium Normal 7.6-11.[address] [facility] Comment on above: Result Comment: Canc elled via OM: Order cancelled - Patient discharged Performed By: #### L 100.0500, L500.2500 ####[facility] [address] [place], [address] CL Normal 98-[address] [facility] Comment on above: Result Comment: Canc elled via OM: Order cancelled - Patient discharged Performed By: #### L 100.0500, L500.2500 ####[facility] [address] [place], [address] CO2 Normal 21.0-32.[address] [facility] Comment on above: Result Comment: Canc elled via OM: Order cancelled - Patient discharged Performed By: #### L 100.0500, L500.2500 ####[facility] [address] [place], [address] CREAT,SERUM Normal 0.70-1.[address] [facility] Comment on above: Result Comment: Canc elled via OM: Order cancelled - Patient discharged Performed By: #### L 100.0500, L500.2500 ####[facility] [address] [place], [address] eGFR Normal >[address] [facility] Comment on above: Result Comment: Canc elled via OM: Order cancelled - Patient discharged Performed By: #### L 100.0500, L500.2500 ####[facility] [address] [place], [address] GAP Normal 5-[address] [facility] Comment on above: Result Comment: Canc elled via OM: Order cancelled - Patient discharged Performed By: #### L 100.0500, L500.2500 ####[facility] [address] [place], [address] GLU Normal 70-[address] [facility] Comment on above: Result Comment: Canc elled via OM: Order cancelled - Patient discharged Performed By: #### L 100.0500, L500.2500 ####[facility] [address] [place], [address] Potassium Normal 3.3-5.[address] [facility] Comment on above: Result Comment: Canc elled via OM: Order cancelled - Patient discharged Performed By: #### L 100.0500, L500.2500 ####[facility] [address] [place], [address] Basic Metabolic Profile (BMP) Normal 133-[address] [facility] Comment on above: Result Comment: Canc elled via OM: Order cancelled - Patient discharged Performed By: #### L 100.0500, L500.2500 ####[facility] [address] [place], [address] CBC-Complete Blood Cnt No Di ffon 03-27-2025 HCT Normal 37-[address] [facility] Comment on above: Result Comment: Canc elled via OM: Order cancelled - Patient discharged Performed By: #### L 100.0500, L500.2500 ####[facility] [address] [place], [address] HGB Normal 12.0-15.[address] [facility] Comment on above: Result Comment: Canc elled via OM: Order cancelled - Patient discharged Performed By: #### L 100.0500, L500.2500 ####[facility] [address] [place], [address] MCH Normal 27.0-32.[address] [facility] Comment on above: Result Comment: Canc elled via OM: Order cancelled - Patient discharged Performed By: #### L 100.0500, L500.2500 ####[facility] [address] [place], [address] MCHC Normal 32-[address] [facility] Comment on above: Result Comment: Canc elled via OM: Order cancelled - Patient discharged Performed By: #### L 100.0500, L500.2500 ####[facility] [address] [place], [address] MCV Normal 81-[address] [facility] Comment on above: Result Comment: Canc elled via OM: Order cancelled - Patient discharged Performed By: #### L 100.0500, L500.2500 ####[facility] [address] [place], [address] PLT Normal 150-[address] [facility] Comment on above: Result Comment: Canc elled via OM: Order cancelled - Patient discharged Performed By: #### L 100.0500, L500.2500 ####[facility] [address] [place], [address] RBC Normal 4.2-5.[address] [facility] Comment on above: Result Comment: Canc elled via OM: Order cancelled - Patient discharged Performed By: #### L 100.0500, L500.2500 ####[facility] [address] [place], [address] RDW CV Normal 11.6-14.[address] [facility] Comment on above: Result Comment: Canc elled via OM: Order cancelled - Patient discharged Performed By: #### L 100.0500, L500.2500 ####[facility] [address] [place], [address] RDW SD Normal 35.1-43.[address] [facility] Comment on above: Result Comment: Canc elled via OM: Order cancelled - Patient discharged Performed By: #### L 100.0500, L500.2500 ####[facility] [address] [place], [address] WBC Normal 4.4-11.[address] [facility] Comment on above: Result Comment: Canc elled via OM: Order cancelled - Patient discharged Performed By: #### L 100.0500, L500.2500 ####[facility] [address] [place], [address] Basic Metabolic Profile (BMP )on 03-26-2025 BUN Normal 4-[address] [facility] Comment on above: Result Comment: Canc elled via OM: Order cancelled - Patient discharged Performed By: #### L 500.2500, L100.0500 ####[facility] [address] [place], [address] BUN/CRE Normal 10-[address] [facility] Comment on above: Result Comment: Canc elled via OM: Order cancelled - Patient discharged Performed By: #### L 500.2500, L100.0500 ####[facility] [address] [place], [address] Calcium Normal 7.6-11.[address] [facility] Comment on above: Result Comment: Canc elled via OM: Order cancelled - Patient discharged Performed By: #### L 500.2500, L100.0500 ####[facility] [address] [place], [address] CL Normal 98-[address] [facility] Comment on above: Result Comment: Canc elled via OM: Order cancelled - Patient discharged Performed By: #### L 500.2500, L100.0500 ####[facility] [address] [place], [address] CO2 Normal 21.0-32.[address] [facility] Comment on above: Result Comment: Canc elled via OM: Order cancelled - Patient discharged Performed By: #### L 500.2500, L100.0500 ####[facility] [address] [place], [address] CREAT,SERUM Normal 0.70-1.[address] [facility] Comment on above: Result Comment: Canc elled via OM: Order cancelled - Patient discharged Performed By: #### L 500.2500, L100.0500 ####[facility] [address] [place], [address] eGFR Normal >[address] [facility] Comment on above: Result Comment: Canc elled via OM: Order cancelled - Patient discharged Performed By: #### L 500.2500, L100.0500 ####[facility] [address] [place], [address] GAP Normal 5-[address] [facility] Comment on above: Result Comment: Canc elled via OM: Order cancelled - Patient discharged Performed By: #### L 500.2500, L100.0500 ####[facility] [address] [place], [address] GLU Normal 70-[address] [facility] Comment on above: Result Comment: Canc elled via OM: Order cancelled - Patient discharged Performed By: #### L 500.2500, L100.0500 ####[facility] [address] [place], [address] Potassium Normal 3.3-5.[address] [facility] Comment on above: Result Comment: Canc elled via OM: Order cancelled - Patient discharged Performed By: #### L 500.2500, L100.0500 ####[facility] [address] [place], [address] Basic Metabolic Profile (BMP) Normal 133-[address] [facility] Comment on above: Result Comment: Canc elled via OM: Order cancelled - Patient discharged Performed By: #### L 500.2500, L100.0500 ####[facility] [address] [place], [address] CBC-Complete Blood Cnt No Di ffon 03-26-2025 HCT Normal 37-[address] [facility] Comment on above: Result Comment: Canc elled via OM: Order cancelled - Patient discharged Performed By: #### L 500.2500, L100.0500 ####[facility] [address] [place], [address] HGB Normal 12.0-15.[address] [facility] Comment on above: Result Comment: Canc elled via OM: Order cancelled - Patient discharged Performed By: #### L 500.2500, L100.0500 ####[facility] [address] [place], [address] MCH Normal 27.0-32.[address] [facility] Comment on above: Result Comment: Canc elled via OM: Order cancelled - Patient discharged Performed By: #### L 500.2500, L100.0500 ####[facility] [address] [place], [address] MCHC Normal 32-[address] [facility] Comment on above: Result Comment: Canc elled via OM: Order cancelled - Patient discharged Performed By: #### L 500.2500, L100.0500 ####[facility] [address] [place], [address] MCV Normal 81-[address] [facility] Comment on above: Result Comment: Canc elled via OM: Order cancelled - Patient discharged Performed By: #### L 500.2500, L100.0500 ####[facility] [address] [place], [address] PLT Normal 150-[address] [facility] Comment on above: Result Comment: Canc elled via OM: Order cancelled - Patient discharged Performed By: #### L 500.2500, L100.0500 ####[facility] [address] [place], [address] RBC Normal 4.2-5.[address] [facility] Comment on above: Result Comment: Canc elled via OM: Order cancelled - Patient discharged Performed By: #### L 500.2500, L100.0500 ####[facility] [address] [place], [address] RDW CV Normal 11.6-14.[address] [facility] Comment on above: Result Comment: Canc elled via OM: Order cancelled - Patient discharged Performed By: #### L 500.2500, L100.0500 ####[facility] [address] [place], [address] RDW SD Normal 35.1-43.[address] [facility] Comment on above: Result Comment: Canc elled via OM: Order cancelled - Patient discharged Performed By: #### L 500.2500, L100.0500 ####[facility] [address] [place], [address] WBC Normal 4.4-11.[address] [facility] Comment on above: Result Comment: Canc elled via OM: Order cancelled - Patient discharged Performed By: #### L 500.2500, L100.0500 ####[facility] [address] [place], [address] Basic Metabolic Profile (BMP )on 03-25-2025 BUN Normal 4-[address] [facility] Comment on above: Result Comment: Canc elled via OM: Order cancelled - Patient discharged Performed By: #### L 500.2500, L100.0500 ####[facility] [address] [place], [address] BUN/CRE Normal 10-[address] [facility] Comment on above: Result Comment: Canc elled via OM: Order cancelled - Patient discharged Performed By: #### L 500.2500, L100.0500 ####[facility] [address] [place], [address] Calcium Normal 7.6-11.[address] [facility] Comment on above: Result Comment: Canc elled via OM: Order cancelled - Patient discharged Performed By: #### L 500.2500, L100.0500 ####[facility] [address] [place], [address] CL Normal 98-[address] [facility] Comment on above: Result Comment: Canc elled via OM: Order cancelled - Patient discharged Performed By: #### L 500.2500, L100.0500 ####[facility] [address] [place], [address] CO2 Normal 21.0-32.[address] [facility] Comment on above: Result Comment: Canc elled via OM: Order cancelled - Patient discharged Performed By: #### L 500.2500, L100.0500 ####[facility] [address] [place], [address] CREAT,SERUM Normal 0.70-1.[address] [facility] Comment on above: Result Comment: Canc elled via OM: Order cancelled - Patient discharged Performed By: #### L 500.2500, L100.0500 ####[facility] [address] [place], [address] eGFR Normal >[address] [facility] Comment on above: Result Comment: Canc elled via OM: Order cancelled - Patient discharged Performed By: #### L 500.2500, L100.0500 ####[facility] [address] [place], [address] GAP Normal 5-[address] [facility] Comment on above: Result Comment: Canc elled via OM: Order cancelled - Patient discharged Performed By: #### L 500.2500, L100.0500 ####[facility] [address] [place], [address] GLU Normal 70-[address] [facility] Comment on above: Result Comment: Canc elled via OM: Order cancelled - Patient discharged Performed By: #### L 500.2500, L100.0500 ####[facility] [address] [place], [address] Potassium Normal 3.3-5.[address] [facility] Comment on above: Result Comment: Canc elled via OM: Order cancelled - Patient discharged Performed By: #### L 500.2500, L100.0500 ####[facility] [address] [place], [address] Basic Metabolic Profile (BMP) Normal 133-[address] [facility] Comment on above: Result Comment: Canc elled via OM: Order cancelled - Patient discharged Performed By: #### L 500.2500, L100.0500 ####[facility] [address] [place], [address] CBC-Complete Blood Cnt No Di ffon 03-25-2025 HCT Normal 37-[address] [facility] Comment on above: Result Comment: Canc elled via OM: Order cancelled - Patient discharged Performed By: #### L 500.2500, L100.0500 ####[facility] [address] [place], [address] HGB Normal 12.0-15.[address] [facility] Comment on above: Result Comment: Canc elled via OM: Order cancelled - Patient discharged Performed By: #### L 500.2500, L100.0500 ####[facility] [address] [place], [address] MCH Normal 27.0-32.[address] [facility] Comment on above: Result Comment: Canc elled via OM: Order cancelled - Patient discharged Performed By: #### L 500.2500, L100.0500 ####[facility] [address] [place], [address] MCHC Normal 32-[address] [facility] Comment on above: Result Comment: Canc elled via OM: Order cancelled - Patient discharged Performed By: #### L 500.2500, L100.0500 ####[facility] [address] [place], [address] MCV Normal 81-[address] [facility] Comment on above: Result Comment: Canc elled via OM: Order cancelled - Patient discharged Performed By: #### L 500.2500, L100.0500 ####[facility] [address] [place], [address] PLT Normal 150-[address] [facility] Comment on above: Result Comment: Canc elled via OM: Order cancelled - Patient discharged Performed By: #### L 500.2500, L100.0500 ####[facility] [address] [place], [address] RBC Normal 4.2-5.[address] [facility] Comment on above: Result Comment: Canc elled via OM: Order cancelled - Patient discharged Performed By: #### L 500.2500, L100.0500 ####[facility] [address] [place], [address] RDW CV Normal 11.6-14.[address] [facility] Comment on above: Result Comment: Canc elled via OM: Order cancelled - Patient discharged Performed By: #### L 500.2500, L100.0500 ####[facility] [address] [place], [address] RDW SD Normal 35.1-43.[address] [facility] Comment on above: Result Comment: Canc elled via OM: Order cancelled - Patient discharged Performed By: #### L 500.2500, L100.0500 ####[facility] [address] [place], [address] WBC Normal 4.4-11.[address] [facility] Comment on above: Result Comment: Canc elled via OM: Order cancelled - Patient discharged Performed By: #### L 500.2500, L100.0500 ####[facility] [address] [place], [address] Basic Metabolic Profile (BMP )on 03-24-2025 BUN Normal 4-[address] [facility] Comment on above: Result Comment: Canc elled via OM: Order cancelled - Patient discharged Performed By: #### L 100.0100, L500.2500 ####[facility] [address] [place], [address] BUN/CRE Normal 10-[address] [facility] Comment on above: Result Comment: Canc elled via OM: Order cancelled - Patient discharged Performed By: #### L 100.0100, L500.2500 ####[facility] [address] [place], [address] Calcium Normal 7.6-11.[address] [facility] Comment on above: Result Comment: Canc elled via OM: Order cancelled - Patient discharged Performed By: #### L 100.0100, L500.2500 ####[facility] [address] [place], [address] CL Normal 98-[address] [facility] Comment on above: Result Comment: Canc elled via OM: Order cancelled - Patient discharged Performed By: #### L 100.0100, L500.2500 ####[facility] [address] [place], [address] CO2 Normal 21.0-32.[address] [facility] Comment on above: Result Comment: Canc elled via OM: Order cancelled - Patient discharged Performed By: #### L 100.0100, L500.2500 ####[facility] [address] [place], [address] CREAT,SERUM Normal 0.70-1.[address] [facility] Comment on above: Result Comment: Canc elled via OM: Order cancelled - Patient discharged Performed By: #### L 100.0100, L500.2500 ####[facility] [address] [place], [address] eGFR Normal >[address] [facility] Comment on above: Result Comment: Canc elled via OM: Order cancelled - Patient discharged Performed By: #### L 100.0100, L500.2500 ####[facility] [address] [place], [address] GAP Normal 5-[address] [facility] Comment on above: Result Comment: Canc elled via OM: Order cancelled - Patient discharged Performed By: #### L 100.0100, L500.2500 ####[facility] [address] [place], [address] GLU Normal 70-[address] [facility] Comment on above: Result Comment: Canc elled via OM: Order cancelled - Patient discharged Performed By: #### L 100.0100, L500.2500 ####[facility] [address] [place], [address] Potassium Normal 3.3-5.[address] [facility] Comment on above: Result Comment: Canc elled via OM: Order cancelled - Patient discharged Performed By: #### L 100.0100, L500.2500 ####[facility] [address] [place], [address] Basic Metabolic Profile (BMP) Normal 133-[address] [facility] Comment on above: Result Comment: Canc elled via OM: Order cancelled - Patient discharged Performed By: #### L 100.0100, L500.2500 ####[facility] [address] [place], [address] CBC W/Diff, Automatedon 05-1 0-2024 Absolute Neut Normal 2.0-7.[address] [facility] Comment on above: Result Comment: Canc elled via OM: Order cancelled - Patient discharged Performed By: #### L 100.0100, L500.2500 ####[facility] [address] [place], [address] HCT Normal 37-[address] [facility] Comment on above: Result Comment: Canc elled via OM: Order cancelled - Patient discharged Performed By: #### L 100.0100, L500.2500 ####[facility] [address] [place], [address] HGB Normal 12.0-15.[address] [facility] Comment on above: Result Comment: Canc elled via OM: Order cancelled - Patient discharged Performed By: #### L 100.0100, L500.2500 ####[facility] [address] [place], [address] MCH Normal 27.0-32.[address] [facility] Comment on above: Result Comment: Canc elled via OM: Order cancelled - Patient discharged Performed By: #### L 100.0100, L500.2500 ####[facility] [address] [place], [address] MCHC Normal 32-[address] [facility] Comment on above: Result Comment: Canc elled via OM: Order cancelled - Patient discharged Performed By: #### L 100.0100, L500.2500 ####[facility] [address] [place], [address] MCV Normal 81-[address] [facility] Comment on above: Result Comment: Canc elled via OM: Order cancelled - Patient discharged Performed By: #### L 100.0100, L500.2500 ####[facility] [address] [place], [address] NEUT% Normal 47-[address] [facility] Comment on above: Result Comment: Canc elled via OM: Order cancelled - Patient discharged Performed By: #### L 100.0100, L500.2500 ####[facility] [address] [place], [address] PLT Normal 150-[address] [facility] Comment on above: Result Comment: Canc elled via OM: Order cancelled - Patient discharged Performed By: #### L 100.0100, L500.2500 ####[facility] [address] [place], [address] RBC Normal 4.2-5.[address] [facility] Comment on above: Result Comment: Canc elled via OM: Order cancelled - Patient discharged Performed By: #### L 100.0100, L500.2500 ####[facility] [address] [place], [address] RDW CV Normal 11.6-14.[address] [facility] Comment on above: Result Comment: Canc elled via OM: Order cancelled - Patient discharged Performed By: #### L 100.0100, L500.2500 ####[facility] [address] [place], [address] RDW SD Normal 35.1-43.[address] [facility] Comment on above: Result Comment: Canc elled via OM: Order cancelled - Patient discharged Performed By: #### L 100.0100, L500.2500 ####[facility] [address] [place], [address] WBC Normal 4.4-11.[address] [facility] Comment on above: Result Comment: Canc elled via OM: Order cancelled - Patient discharged Performed By: #### L 100.0100, L500.2500 ####[facility] [address] [place], [address] Wound Cultureon 03-24-[address] [facility] Comment on above: Performed By: #### M 100.2000, M100.4001, M100.3000 ####[facility] [address] [place], [address] Anion gap in Serum or Plasma Ordered By: Aparna Mabry on 03-23-2025 Anion gap [Moles/Vol] 12 mmol/L 03-29 [facility] [place] BUN/creatinine ratioOrdered By: Aparna Mabry on 03-23-2025 Urea nitrogen/Creatinine [Mass ratio] 10.1 mg/mg 09-[address] [facility] Basic Metabolic Profile (BMP )on 03-23-2025 BUN/CRE 10.1 RATIO Normal 09-[address] [facility] Comment on above: Performed By: #### L 100.0500, L500.2500 ####[facility] [address] [place], [address] Calcium [Mass/Vol] 8.0 mg/dL Normal 7.6-11.0 [facility] Comment on above: Performed By: #### L 100.0500, L500.2500 ####[facility] [address] [place], [address] Chloride [Moles/Vol] 102 mmol/L Normal 98-108 [facility] Comment on above: Performed By: #### L 100.0500, L500.2500 ####[facility] [address] [place], [address] CO2 [Moles/Vol] 21.2 mmol/L Normal 21.0-32.[address] [facility] Comment on above: Performed By: #### L 100.0500, L500.2500 ####[facility] [address] [place], [address] Creatinine [Mass/Vol] 4.76 mg/dL High 0.70-1.20 [facility] [place] Comment on above: Performed By: #### L 100.0500, L500.2500 ####[facility] [address] [place], [address] ECRCL 12.14 ml/min Low 50-[address] [facility] Comment on above: Performed By: #### L 100.0500, L500.2500 ####[facility] [address] [place], [address] GAP 12 Normal 5-[address] [facility] Comment on above: Performed By: #### L 100.0500, L500.2500 ####[facility] [address] [place], [address] GFR/1.73 sq M.predicted among non-blacks MDRD (S/P/Bld) [Vol rate/Area] 9 mL/min/{1.73_m2} Low >[address] [facility] Comment on above: Result Comment: mL/m in/1.73m2 CKD-EPI Creatinine Equation (2020) Performed By: #### L 100.0500, L500.2500 ####[facility] [address] [place], [address] Glucose [Mass/Vol] 130 mg/dL High 70-99 [facility] Comment on above: Performed By: #### L 100.0500, L500.2500 ####[facility] [address] [place], [address] Potassium [Moles/Vol] 4.0 mmol/L Normal 3.3-5.1 [facility] [place] Comment on above: Performed By: #### L 100.0500, L500.2500 ####[facility] [address] [place], [address] Sodium [Moles/Vol] 135 mmol/L Normal 133-145 [facility] Comment on above: Performed By: #### L 100.0500, L500.2500 ####[facility] [address] [place], [address] Urea nitrogen [Mass/Vol] 48 mg/dL High 4-[address] [facility] Comment on above: Performed By: #### L 100.0500, L500.2500 ####[facility] [address] [place], [address] Bedside Glucoseon 03-23-2025 FINGERSTICK GLU 86 mg/dL Normal 74-[address] [facility] Comment on above: Result Comment: RONNIE GEMENT OF PATIENT CARE PER NURSING PROTOCOL Performed By: #### L 501.080 ####[facility] [address] [place], [address] FINGERSTICK GLU 119 mg/dL High 74-[address] [facility] Comment on above: Result Comment: RONNIE GEMENT OF PATIENT CARE PER NURSING PROTOCOL Performed By: #### L 501.080 ####[facility] [address] [place], [address] CBC-Complete Blood Cnt No Di ffon 03-23-2025 Erythrocyte distribution width (RBC) [Ratio] 17.2 % High 11.6-14.[address] [facility] Comment on above: Performed By: #### L 100.0500, L500.2500 ####[facility] [address] [place], [address] Hematocrit (Bld) [Volume fraction] 34.2 % Low 37-[address] [facility] Comment on above: Performed By: #### L 100.0500, L500.2500 ####[facility] [address] [place], [address] Hemoglobin (Bld) [Mass/Vol] 9.8 g/dL Low 12.0-15.[address] [facility] Comment on above: Performed By: #### L 100.0500, L500.2500 ####[facility] [address] [place], [address] MCH (RBC) [Entitic mass] 26.0 pg Low 27.0-32.[address] [facility] Comment on above: Performed By: #### L 100.0500, L500.2500 ####[facility] [address] [place], [address] MCHC (RBC) [Mass/Vol] 28.7 g/dL Low 32-36 [facility] [place] Comment on above: Performed By: #### L 100.0500, L500.2500 ####[facility] [address] [place], [address] MCV (RBC) [Entitic vol] 90.7 fL Normal 81-99 [facility] Comment on above: Performed By: #### L 100.0500, L500.2500 ####[facility] [address] [place], [address] Platelet mean volume (Bld) [Entitic vol] 10.2 fL Normal 6.2-12.[address] [facility] Comment on above: Performed By: #### L 100.0500, L500.2500 ####[facility] [address] [place], [address] Platelets (Bld) [#/Vol] 182 10*3/uL Normal 150-[address] [facility] Comment on above: Performed By: #### L 100.0500, L500.2500 ####[facility] [address] [place], [address] RBC (Bld) [#/Vol] 3.77 10*6/uL Low 4.2-5.4 [facility] Comment on above: Performed By: #### L 100.0500, L500.2500 ####[facility] [address] [place], [address] RDW SD 57.6 fl High 35.1-43.[address] [facility] Comment on above: Performed By: #### L 100.0500, L500.2500 ####[facility] [address] [place], [address] WBC (Bld) [#/Vol] 7.5 10*3/uL Normal 4.4-11.0 [facility] Comment on above: Performed By: #### L 100.0500, L500.2500 ####[facility] [address] [place], [address] Carbon dioxide, total [Moles /volume] in Central venous bloodOrdered By: Aparna Mabry on 03-23-2025 CO2 [Moles/Vol] 21.2 mmol/L 21.0-32.[address] [facility] Chloride assayOrdered By: Tasneem Mabry on 03-23-2025 Chloride [Moles/Vol] 102 mmol/L 98-108 [facility] Culture, Anaerobic Any Sourc cecil 03-23-2025 CUAN COLLECTED IN OR-POST LAVAGE CX SWAB RIGHTGREAT TOE No anaerobic bacteria isolated. Normal [facility] Comment on above: Performed By: #### M 100.2000, M100.4001, M100.3000 ####[facility] [address] [place], [address] Erythrocyte distribution wid th ratioOrdered By: Aparna Mabry on 03-23-2025 Erythrocyte distribution width (RBC) [Ratio] 17.2 % High 11.6-14.[address] [facility] Erythrocyte distribution wid th standard deviationOrdered By: Aparna Mabry on 03-23-2025 Erythrocyte distribution width (RBC) [Ratio] 57.6 fl High 35.1-43.[address] [facility] Glomerular filtration rate ( GFR) estimation/1.73 sq m using serum, plasma, or whole bOrdered By: Aparna Mabry on 03-23-2025 GFR/1.73 sq M.predicted among non-blacks MDRD (S/P/Bld) [Vol rate/Area] 9 mL/min/{1.73_m2} Low >[address] [facility] Comment on above: mL/min/1.73m2 CKD-EP I Creatinine Equation (2020) Glucose measurement at bedsi deOrdered By: Fitz Ryan on 03-23-2025 Glucose [Mass/Vol] 86 mg/dL 74-106 [facility] Comment on above: MANAGEMENT OF PATIEN T CARE PER NURSING PROTOCOL Hematocrit Auto (Bld) [Volum e fraction]Ordered By: Aparna Mabry on 03-23-2025 Hematocrit (Bld) [Volume fraction] 34.2 % Low 37-[address] [facility] Hemoglobin measurementOrdere d By: Aparna Mabry on 03-23-2025 Hemoglobin (Bld) [Mass/Vol] 9.8 g/dL Low 12.0-15.[address] [facility] MCV (mean corpuscular volume ) determinationOrdered By: Aparna Mabry on 03-23-2025 MCV (RBC) [Entitic vol] 90.7 fL 81-99 [facility] Mean corpuscular hemoglobin (MCH) determinationOrdered By: Aparna Mabry on 03-23-2025 MCH (RBC) [Entitic mass] 26.0 pg Low 27.0-32.[address] [facility] Mean corpuscular hemoglobin concentration (MCHC) determinationOrdered By: Aparna Mabry on 03-23-2025 MCHC (RBC) [Mass/Vol] 28.7 g/dL Low 32-36 [facility] Mean platelet volume determi nationOrdered By: Aparna Mabry on 03-23-2025 Platelet mean volume (Bld) [Entitic vol] 10.2 fL 6.2-12.[address] [facility] Platelet countOrdered By: Tasneem Mabry on 03-23-2025 Platelets (Bld) [#/Vol] 182 10*3/uL 150-[address] [facility] Potassium measurement (mass/ volume)Ordered By: Aparna Mabry on 03-23-2025 Potassium (Unsp spec) [Mass/Vol] 4.0 mmol/L 3.3-5.[address] [facility] RBC Auto (Bld) [#/Vol]Ordere d By: Aparna Mabry on 03-23-2025 RBC (Bld) [#/Vol] 3.77 10*6/uL Low 4.2-5.4 [facility] Serum creatinine measurement (mass/volume)Ordered By: Aparna Mabry on 03-23-2025 Creatinine [Mass/Vol] 4.76 mg/dL High 0.70-1.20 [facility] Serum glucose measurement (m ass/volume)Ordered By: Aparna Mabry on 03-23-2025 Glucose [Mass/Vol] 130 mg/dL High 70-99 [facility] Serum or plasma calcium ras urement (mass/volume)Ordered By: Aparna Mabry on 03-23-2025 Calcium [Mass/Vol] 8.0 mg/dL 7.6-11.0 [facility] Serum or plasma urea nitroge n measurement (mass/volume)Ordered By: Aparna Mabry on 03-23-2025 Urea nitrogen [Mass/Vol] 48 mg/dL High 4-[address] [facility] Sodium levelOrdered By: Joe Mabry on 03-23-2025 Sodium [Moles/Vol] 135 mmol/L 133-145 [facility] White blood cell (WBC) count Ordered By: Aparna Mabry on 03-23-2025 WBC (Bld) [#/Vol] 7.5 10*3/uL 4.4-11.0 [facility] Basic Metabolic Profile (BMP )on 03-22-2025 BUN/CRE 9.7 RATIO Low 10-[address] [facility] Comment on above: Performed By: #### L 100.0500, L500.2500 ####[facility] [address] [place], [address] Calcium [Mass/Vol] 8.1 mg/dL Normal 7.6-11.0 [facility] Comment on above: Performed By: #### L 100.0500, L500.2500 ####[facility] [address] [place], [address] Chloride [Moles/Vol] 102 mmol/L Normal 98-108 [facility] Comment on above: Performed By: #### L 100.0500, L500.2500 ####[facility] [address] [place], [address] CO2 [Moles/Vol] 22.9 mmol/L Normal 21.0-32.[address] [facility] Comment on above: Performed By: #### L 100.0500, L500.2500 ####[facility] [address] [place], [address] Creatinine [Mass/Vol] 4.13 mg/dL High 0.70-1.20 [facility] Comment on above: Performed By: #### L 100.0500, L500.2500 ####[facility] [address] [place], [address] ECRCL 14.44 ml/min Low 50-[address] [facility] Comment on above: Performed By: #### L 100.0500, L500.2500 ####[facility] [address] [place], [address] GAP 11 Normal 5-[address] [facility] Comment on above: Performed By: #### L 100.0500, L500.2500 ####[facility] [address] [place], [address] GFR/1.73 sq M.predicted among non-blacks MDRD (S/P/Bld) [Vol rate/Area] 11 mL/min/{1.73_m2} Low >[address] [facility] Comment on above: Result Comment: mL/m in/1.73m2 CKD-EPI Creatinine Equation (2020) Performed By: #### L 100.0500, L500.2500 ####[facility] [address] [place], [address] Glucose [Mass/Vol] 87 mg/dL Normal 70-99 [facility] Comment on above: Performed By: #### L 100.0500, L500.2500 ####[facility] [address] [place], [address] Potassium [Moles/Vol] 4.2 mmol/L Normal 3.3-5.1 [facility] Comment on above: Performed By: #### L 100.0500, L500.2500 ####[facility] [address] [place], [address] Sodium [Moles/Vol] 136 mmol/L Normal 133-145 [facility] Comment on above: Performed By: #### L 100.0500, L500.2500 ####[facility] [address] [place], [address] Urea nitrogen [Mass/Vol] 40 mg/dL High 4-[address] [facility] Comment on above: Performed By: #### L 100.0500, L500.2500 ####[facility] [address] [place], [address] Bedside Glucoseon 03-22-2025 FINGERSTICK GLU 182 mg/dL High 74-[address] [facility] Comment on above: Result Comment: RONNIE GEMENT OF PATIENT CARE PER NURSING PROTOCOL Performed By: #### L 501.080 ####[facility] [address] [place], [address] FINGERSTICK GLU 136 mg/dL High 74-[address] [facility] Comment on above: Result Comment: RONNIE GEMENT OF PATIENT CARE PER NURSING PROTOCOL Performed By: #### L 501.080 ####[facility] [address] [place], [address] FINGERSTICK GLU 137 mg/dL High 74-[address] [facility] Comment on above: Result Comment: RONNIE GEMENT OF PATIENT CARE PER NURSING PROTOCOL Performed By: #### L 501.080 ####[facility] [address] [place], [address] FINGERSTICK GLU 96 mg/dL Normal 74-[address] [facility] Comment on above: Result Comment: RONNIE GEMENT OF PATIENT CARE PER NURSING PROTOCOL Performed By: #### L 501.080 ####[facility] [address] [place], [address] FINGERSTICK GLU 105 mg/dL Normal 74-[address] [facility] Comment on above: Result Comment: RONNIE GEMENT OF PATIENT CARE PER NURSING PROTOCOL Performed By: #### L 501.080 ####[facility] [address] [place], [address] CBC-Complete Blood Cnt No Di ffon 03-22-2025 Erythrocyte distribution width (RBC) [Ratio] 17.1 % High 11.6-14.[address] [facility] Comment on above: Performed By: #### L 100.0500, L500.2500 ####[facility] [address] [place], [address] Hematocrit (Bld) [Volume fraction] 36.4 % Low 37-[address] [facility] Comment on above: Performed By: #### L 100.0500, L500.2500 ####[facility] [address] [place], [address] Hemoglobin (Bld) [Mass/Vol] 10.3 g/dL Low 12.0-15.[address] [facility] Comment on above: Performed By: #### L 100.0500, L500.2500 ####[facility] [address] [place], [address] MCH (RBC) [Entitic mass] 25.5 pg Low 27.0-32.[address] [facility] Comment on above: Performed By: #### L 100.0500, L500.2500 ####[facility] [address] [place], [address] MCHC (RBC) [Mass/Vol] 28.3 g/dL Low 32-36 [facility] Comment on above: Performed By: #### L 100.0500, L500.2500 ####[facility] [address] [place], [address] MCV (RBC) [Entitic vol] 90.1 fL Normal 81-99 [facility] Comment on above: Performed By: #### L 100.0500, L500.2500 ####[facility] [address] [place], [address] Platelet mean volume (Bld) [Entitic vol] 9.6 fL Normal 6.2-12.[address] [facility] Comment on above: Performed By: #### L 100.0500, L500.2500 ####[facility] [address] [place], [address] Platelets (Bld) [#/Vol] 169 10*3/uL Normal 150-[address] [facility] Comment on above: Performed By: #### L 100.0500, L500.2500 ####[facility] [address] [place], [address] RBC (Bld) [#/Vol] 4.04 10*6/uL Low 4.2-5.4 [facility] Comment on above: Performed By: #### L 100.0500, L500.2500 ####[facility] [address] [place], [address] RDW SD 56.2 fl High 35.1-43.[address] [facility] Comment on above: Performed By: #### L 100.0500, L500.2500 ####[facility] [address] [place], [address] WBC (Bld) [#/Vol] 8.4 10*3/uL Normal 4.4-11.0 [facility] Comment on above: Performed By: #### L 100.0500, L500.2500 ####[facility] [address] [place], [address] Basic Metabolic Profile (BMP )on 03-21-2025 BUN/CRE 11.0 RATIO Normal 10-[address] [facility] Comment on above: Performed By: #### L 100.0500, L500.2500 ####[facility] [address] [place], [address] Calcium [Mass/Vol] 7.9 mg/dL Normal 7.6-11.0 [facility] Comment on above: Performed By: #### L 100.0500, L500.2500 ####[facility] [address] [place], [address] Chloride [Moles/Vol] 103 mmol/L Normal 98-108 [facility] Comment on above: Performed By: #### L 100.0500, L500.2500 ####[facility] [address] [place], [address] CO2 [Moles/Vol] 18.5 mmol/L Low 21.0-32.[address] [facility] Comment on above: Performed By: #### L 100.0500, L500.2500 ####[facility] [address] [place], [address] Creatinine [Mass/Vol] 4.94 mg/dL High 0.70-1.20 [facility] Comment on above: Performed By: #### L 100.0500, L500.2500 ####[facility] [address] [place], [address] ECRCL 12.10 ml/min Low 50-[address] [facility] Comment on above: Performed By: #### L 100.0500, L500.2500 ####[facility] [address] [place], [address] GAP 14 Normal 5-[address] [facility] Comment on above: Performed By: #### L 100.0500, L500.2500 ####[facility] [address] [place], [address] GFR/1.73 sq M.predicted among non-blacks MDRD (S/P/Bld) [Vol rate/Area] 9 mL/min/{1.73_m2} Low >[address] [facility] Comment on above: Result Comment: mL/m in/1.73m2 CKD-EPI Creatinine Equation (2020) Performed By: #### L 100.0500, L500.2500 ####[facility] [address] [place], [address] Glucose [Mass/Vol] 109 mg/dL High 70-99 [facility] Comment on above: Performed By: #### L 100.0500, L500.2500 ####[facility] [address] [place], [address] Potassium [Moles/Vol] 4.7 mmol/L Normal 3.3-5.1 [facility] Comment on above: Performed By: #### L 100.0500, L500.2500 ####[facility] [address] [place], [address] Sodium [Moles/Vol] 136 mmol/L Normal 133-145 [facility] Comment on above: Performed By: #### L 100.0500, L500.2500 ####[facility] [address] [place], [address] Urea nitrogen [Mass/Vol] 55 mg/dL High 4-[address] [facility] Comment on above: Performed By: #### L 100.0500, L500.2500 ####[facility] [address] [place], [address] Bedside Glucoseon 03-21-2025 FINGERSTICK GLU 120 mg/dL High 74-[address] [facility] Comment on above: Result Comment: RONNIE GEMENT OF PATIENT CARE PER NURSING PROTOCOL Performed By: #### L 501.080 ####[facility] [address] [place], [address] FINGERSTICK GLU 94 mg/dL Normal 74-[address] [facility] Comment on above: Result Comment: RONNIE GEMENT OF PATIENT CARE PER NURSING PROTOCOL Performed By: #### L 501.080 ####[facility] [address] [place], [address] FINGERSTICK GLU 96 mg/dL Normal 74-[address] [facility] Comment on above: Result Comment: RONNIE GEMENT OF PATIENT CARE PER NURSING PROTOCOL Performed By: #### L 501.080 ####[facility] [address] [place], [address] FINGERSTICK GLU 109 mg/dL High 74-[address] [facility] Comment on above: Result Comment: RONNIE GEMENT OF PATIENT CARE PER NURSING PROTOCOL Performed By: #### L 501.080 ####[facility] [address] [place], [address] CBC-Complete Blood Cnt No Di ffon 03-21-2025 Erythrocyte distribution width (RBC) [Ratio] 17.1 % High 11.6-14.[address] [facility] Comment on above: Performed By: #### L 100.0500, L500.2500 ####[facility] [address] [place], [address] Hematocrit (Bld) [Volume fraction] 35.8 % Low 37-[address] [facility] Comment on above: Performed By: #### L 100.0500, L500.2500 ####[facility] [address] [place], [address] Hemoglobin (Bld) [Mass/Vol] 10.1 g/dL Low 12.0-15.[address] [facility] Comment on above: Performed By: #### L 100.0500, L500.2500 ####[facility] [address] [place], [address] MCH (RBC) [Entitic mass] 25.6 pg Low 27.0-32.[address] [facility] Comment on above: Performed By: #### L 100.0500, L500.2500 ####[facility] [address] [place], [address] MCHC (RBC) [Mass/Vol] 28.2 g/dL Low 32-36 [facility] Comment on above: Performed By: #### L 100.0500, L500.2500 ####[facility] [address] [place], [address] MCV (RBC) [Entitic vol] 90.9 fL Normal 81-99 [facility] Comment on above: Performed By: #### L 100.0500, L500.2500 ####[facility] [address] [place], [address] Platelet mean volume (Bld) [Entitic vol] 10.1 fL Normal 6.2-12.[address] [facility] Comment on above: Performed By: #### L 100.0500, L500.2500 ####[facility] [address] [place], [address] Platelets (Bld) [#/Vol] 165 10*3/uL Normal 150-[address] [facility] Comment on above: Performed By: #### L 100.0500, L500.2500 ####[facility] [address] [place], [address] RBC (Bld) [#/Vol] 3.94 10*6/uL Low 4.2-5.4 [facility] Comment on above: Performed By: #### L 100.0500, L500.2500 ####[facility] [address] [place], [address] RDW SD 56.5 fl High 35.1-43.[address] [facility] Comment on above: Performed By: #### L 100.0500, L500.2500 ####[facility] [address] [place], [address] WBC (Bld) [#/Vol] 8.3 10*3/uL Normal 4.4-11.0 [facility] Comment on above: Performed By: #### L 100.0500, L500.2500 ####[facility] [address] [place], [address] Absolute lymphocyte countOrd ered By: Fitz Ryan on 03-20-2025 Lymphocytes Auto (Unsp spec) [#/Vol] 0.65 10*3/uL Low 0.83-4.[address] [facility] Absolute neutrophil countOrd ered By: Fitz Ryan on 03-20-2025 Neutrophils (Bld) [#/Vol] 8.5 10*3/uL High 2.0-7.[address] [facility] Automated lymphocyte count a s percentage of total leukocytesOrdered By: Fitz Ryan on 03-20-2025 Lymphocytes/100 WBC Auto (Unsp spec) 6.4 % Low 19-[address] [facility] Basic Metabolic Profile (BMP )on 03-20-2025 BUN/CRE 12.1 RATIO Normal 10-[address] [facility] Comment on above: Performed By: #### L 100.0100, L500.2500 ####[facility] [address] [place], [address] Calcium [Mass/Vol] 8.3 mg/dL Normal 7.6-11.0 [facility] Comment on above: Performed By: #### L 100.0100, L500.2500 ####[facility] [address] [place], [address] Chloride [Moles/Vol] 102 mmol/L Normal 98-108 [facility] Comment on above: Performed By: #### L 100.0100, L500.2500 ####[facility] [address] [place], [address] CO2 [Moles/Vol] 20.3 mmol/L Low 21.0-32.[address] [facility] Comment on above: Performed By: #### L 100.0100, L500.2500 ####[facility] [address] [place], [address] Creatinine [Mass/Vol] 4.02 mg/dL High 0.70-1.20 [facility] Comment on above: Performed By: #### L 100.0100, L500.2500 ####[facility] [address] [place], [address] ECRCL 14.87 ml/min Low 50-[address] [facility] Comment on above: Performed By: #### L 100.0100, L500.2500 ####[facility] [address] [place], [address] GAP 15 Normal 5-[address] [facility] Comment on above: Performed By: #### L 100.0100, L500.2500 ####[facility] [address] [place], [address] GFR/1.73 sq M.predicted among non-blacks MDRD (S/P/Bld) [Vol rate/Area] 11 mL/min/{1.73_m2} Low >[address] [facility] Comment on above: Result Comment: mL/m in/1.73m2 CKD-EPI Creatinine Equation (2020) Performed By: #### L 100.0100, L500.2500 ####[facility] [address] [place], [address] Glucose [Mass/Vol] 79 mg/dL Normal 70-99 [facility] Comment on above: Performed By: #### L 100.0100, L500.2500 ####[facility] [address] [place], [address] Potassium [Moles/Vol] 4.6 mmol/L Normal 3.3-5.1 [facility] Comment on above: Performed By: #### L 100.0100, L500.2500 ####[facility] [address] [place], [address] Sodium [Moles/Vol] 137 mmol/L Normal 133-145 [facility] Comment on above: Performed By: #### L 100.0100, L500.2500 ####[facility] [address] [place], [address] Urea nitrogen [Mass/Vol] 49 mg/dL High 4-[address] [facility] Comment on above: Performed By: #### L 100.0100, L500.2500 ####[facility] [address] [place], [address] Basophil percentageOrdered B y: Fitz Ryan on 03-20-2025 Basophils/100 WBC (Bld) 0.3 % 0-1 [facility] Bedside Glucoseon 03-20-2025 FINGERSTICK GLU 156 mg/dL High 74-[address] [facility] Comment on above: Result Comment: RONNIE GEMENT OF PATIENT CARE PER NURSING PROTOCOL Performed By: #### L 501.080 ####[facility] [address] [place], [address] FINGERSTICK GLU 151 mg/dL High 74-[address] [facility] Comment on above: Result Comment: RONNIE GEMENT OF PATIENT CARE PER NURSING PROTOCOL Performed By: #### L 501.080 ####[facility] [address] [place], [address] FINGERSTICK GLU 78 mg/dL Normal 74-[address] [facility] Comment on above: Result Comment: RONNIE GEMENT OF PATIENT CARE PER NURSING PROTOCOL Performed By: #### L 501.080 ####[facility] [address] [place], [address] FINGERSTICK GLU 80 mg/dL Normal 74-[address] [facility] Comment on above: Result Comment: RONNIE GEMENT OF PATIENT CARE PER NURSING PROTOCOL Performed By: #### L 501.080 ####[facility] [address] [place], [address] CBC W/Diff, Automatedon 05-0 6-2025 Absolute Lymph 0.65 X10 3/uL Low 0.83-4.[address] [facility] Comment on above: Performed By: #### L 100.0100, L500.2500 ####[facility] [address] [place], [address] Absolute Neut 8.5 X10 3/uL High 2.0-7.[address] [facility] Comment on above: Performed By: #### L 100.0100, L500.2500 ####[facility] [address] [place], [address] Basophils/100 WBC (Bld) 0.3 % Normal 0-1 [facility] Comment on above: Performed By: #### L 100.0100, L500.2500 ####[facility] [address] [place], [address] Eosinophils/100 WBC (Bld) 0.3 % Normal 0-[address] [facility] Comment on above: Performed By: #### L 100.0100, L500.2500 ####[facility] [address] [place], [address] Erythrocyte distribution width (RBC) [Ratio] 17.2 % High 11.6-14.[address] [facility] Comment on above: Performed By: #### L 100.0100, L500.2500 ####[facility] [address] [place], [address] Hematocrit (Bld) [Volume fraction] 39.1 % Normal 37-[address] [facility] Comment on above: Performed By: #### L 100.0100, L500.2500 ####[facility] [address] [place], [address] Hemoglobin (Bld) [Mass/Vol] 11.0 g/dL Low 12.0-15.[address] [facility] Comment on above: Performed By: #### L 100.0100, L500.2500 ####[facility] [address] [place], [address] IG% 1.200 High 0.0-0.[address] [facility] Comment on above: Result Comment: IG% - Immature Granulocytes (promyelocytes, myelocytes andmetamyelocytes) > 1% indicates that a LEFT SHIFT is Present. Performed By: #### L 100.0100, L500.2500 ####[facility] [address] [place], [address] Lymphocytes/100 WBC (Bld) 6.4 % Low 19-[address] [facility] Comment on above: Performed By: #### L 100.0100, L500.2500 ####[facility] [address] [place], [address] MCH (RBC) [Entitic mass] 25.7 pg Low 27.0-32.[address] [facility] Comment on above: Performed By: #### L 100.0100, L500.2500 ####[facility] [address] [place], [address] MCHC (RBC) [Mass/Vol] 28.1 g/dL Low 32-36 [facility] Comment on above: Performed By: #### L 100.0100, L500.2500 ####[facility] [address] [place], [address] MCV (RBC) [Entitic vol] 91.4 fL Normal 81-99 [facility] Comment on above: Performed By: #### L 100.0100, L500.2500 ####[facility] [address] [place], [address] Monocytes/100 WBC (Bld) 7.7 % Normal 0-10 [facility] Comment on above: Performed By: #### L 100.0100, L500.2500 ####[facility] [address] [place], [address] Neutrophils/100 WBC (Bld) 84.1 % High 47-[address] [facility] Comment on above: Performed By: #### L 100.0100, L500.2500 ####[facility] [address] [place], [address] Nucleated RBC (Bld) [#/Vol] 0.8 10*3/uL Normal 0-[address] [facility] Comment on above: Performed By: #### L 100.0100, L500.2500 ####[facility] [address] [place], [address] Platelet mean volume (Bld) [Entitic vol] 9.2 fL Normal 6.2-12.[address] [facility] Comment on above: Performed By: #### L 100.0100, L500.2500 ####[facility] [address] [place], [address] Platelets (Bld) [#/Vol] 188 10*3/uL Normal 150-[address] [facility] Comment on above: Performed By: #### L 100.0100, L500.2500 ####[facility] [address] [place], [address] RBC (Bld) [#/Vol] 4.28 10*6/uL Normal 4.2-5.4 [facility] Comment on above: Performed By: #### L 100.0100, L500.2500 ####[facility] [address] [place], [address] RDW SD 57.3 fl High 35.1-43.[address] [facility] Comment on above: Performed By: #### L 100.0100, L500.2500 ####[facility] [address] [place], [address] WBC (Bld) [#/Vol] 10.1 10*3/uL Normal 4.4-11.0 [facility] Comment on above: Performed By: #### L 100.0100, L500.2500 ####[facility] [address] [place], [address] Consultation - Infectious Dx on 03-20-2025 Consultation - Infectious Dx Normal [facility] Eosinophil percentageOrdered By: Fitz Ryan on 03-20-2025 Eosinophils/100 WBC (Bld) 0.3 % 0-[address] [facility] Gram Stainon 03-20-2025 GS COLLECTED IN OR-RIG T GREAT TOE DISTAL PHALANX Gram Stain Gram positive cocci Epithelial cells No White Blood Cells Normal [facility] Comment on above: Performed By: #### M 100.2000, M100.4001, M100.3000 ####[facility] [address] [place], [address] Immature granulocytes/100 WB C Auto (Bld)Ordered By: Fitz Ryan on 03-20-2025 Immature granulocytes/100 WBC (Bld) 1.200 % High 0.0-0.[address] [facility] Comment on above: IG% - Immature Granu locytes (promyelocytes, myelocytes and metamyelocytes) > 1% indicates that a LEFT SHIFT is Present. Kidney Biopsyon 03-20-2025 Kidney Biopsy Normal [facility] L350.1810on 03-20-2025 Path [facility] SEE PATHOLOGY REPORT Normal [facility] Comment on above: Order Comment: RESUL TS FAXED TO DR. GRANDE 03/23/25 0950 Aashish Santillan. Result Comment: Spec imen sent to [facility] Pathology Department.Report available in EMR. Performed By: #### L 350.1810 ####[facility] [address] [place], [address] Monocyte percentageOrdered B y: Fitz Connor on 03-20-2025 Monocytes/100 WBC (Bld) 7.7 % 0-10 [facility] Neutrophil percentageOrdered By: Fitz Ryan on 03-20-2025 Neutrophils/100 WBC (Bld) 84.1 % High 47-[address] [facility] Nucleated red blood cell per centageOrdered By: Fitz Connor on 03-20-2025 Nucleated RBC/100 WBC (Bld) [Ratio] 0.8 % 0-[address] [facility] SURG PATH REQUESTon 03-20-20 Case Report Normal [facility] Comment on above: Result Comment: Surg ical Pathology Report Case: [id number] Authorizing Provider: Uriel Grande MD Collected: 03/20/2025 12:00 PM Ordering Location[facility] Received: 03/20/2025 05:29 PM [place] Pathologist: Autumn Sands MD Specimen: KIDNEY Performed By: #### S URGP #### [facility] (DEFAULT) [address] [place] [address] Clinical History A 74-year-old female with history of diabetes mellitus, diabetic neuropathy, JOSUE on chronic kidney disease and CHF, who presented on 03/13/2025 with several weeks of not feeling well. She also had an episode of pneumonia in October 2024, and she was admitted for that. In the past few months, she apparently hurt her right toe and had progressive pain, redness, swelling and drainage, although no fevers or chills. Then, she was admitted with JOSUE, and she had to undergo a distal toe amputation on 03/19/2025. Intraoperative cultures were performed; osteomyelitis and bone necrosis may be present, even in other parts of the right foot and ankle; final cultures are pending. The patient has been on vancomycin and Zosyn and then Unasyn, and she was probably discharged on oral Augmentin for a week. Serum creatinine up to 4 mg/dL, BUN 49, C3 131, C4 33. Autoimmune serologies negative. Creatinine clearance 13.19 mL/min. Toe wound cultures grew Enterococcus casseliflavus and Enterococcus avium. Urine cultures were negative. Additional cultures from her foot and ankle are pending. The patient also is morbidly obese with BMI up to 53.4 kg/m2 and weighs 123 kg. Normal [facility] Comment on above: Performed By: #### S URGP #### [facility] [address] [id number] Gross Description Normal [place] Comment on above: Result Comment: Bill morales from [facility], [place], [place], is a [place] kidney biopsy with two containers labeled with the patient's name and date of . The vial with formalin contains two pieces of 0.1 cm brewer-pink renal cores with the aggregate length of 2.8 cm. One 0.2 cm piece in total length is submitted for electron microscopy. The IF transport medium vial contains one piece of 0.1 cm brewer-pink renal core with the aggregate length of 1.9 cm. One 0.7 cm piece in total length is submitted for immunofluorescence. The remaining one 1.2 cm piece in total length is transferred from the IF transport medium and combined with the formalin fixed pieces. All formalin-fixed tissue is submitted for light microscopy. TE 2 Summary of Sections: A1 - five pieces A2 - one piece IF tissue Grosser for this case was: Jean-Pierre Finn Performed By: #### S URGP #### [facility] (DEFAULT) [address] [address] Microscopic Description Normal [facility] Comment on above: Result Comment: LIGH T MICROSCOPY Paraffin sections stained with H&E, PAS, Trichrome, and English methenamine silver contain renal cortex and renal medulla with up to 15 glomeruli. Two to three glomeruli are globally sclerosed. The remaining glomeruli show mild segmental mesangial expansion but no proliferative lesions or Kimmelstiel-Domo nodules. There is diffuse ATN with fine isometric vacuolization of the epithelial cells. Two to three tubules are found to contain small birefringent oxalate crystals. Interstitial inflammation is very mild and consists of a few small scattered peritubular infiltrates. Moderate arteriolar hyaline is noted. Scattered tubules are found to contain Tamm-Horsfall protein casts. Interstitial fibrosis and tubular atrophy involves less than 10% of the renal cortex in the biopsy specimen. Available arteries appear unremarkable. DIRECT IMMUNOFLUORESCENCE Frozen sections contain renal cortex with 15 glomeruli. Two glomeruli are globally sclerosed. Direct immunofluorescent staining of the antibodies to albumin, IgG, IgA, IgM, C1q, C3, fibrinogen, and both kappa and lambda light chains was performed. Only mild, finely granular, scant glomerular staining for C3 is noted, but no other specific staining is seen. (Grading of the staining intensity is performed on a semiquantitative scale from 0 to 3+) All positive and negative controls were reviewed by the attending pathologist and showed appropriate reactivity. All immunohistochemistry, in situ hybridization, immunofluorescence, and histochemical tests were developed, and their performance characteristics were determined, by the [facility], Department of Pathology. One or more tests reported here have not been cleared by or approved by the US Food and Drug Administration (FDA). The FDA has determined that such clearance or approval is not necessary. This laboratory is regulated under CLIA as qualified to perform high-complexity testing. The tests are used for clinical purposes and should not be regarded as investigational or for research. ELECTRON MICROSCOPY Methylene blue/basic fuchsin stained semithin sections contain renal cortex with four glomeruli. Three glomeruli are examined under the electron microscope. Ultrastructurally, no discrete electron-dense immune-type deposits are identified. The glomerular basement membrane (GBM) is thickened but normal in texture. The mean GBM thickness is 564 +/- 123 nm. The normal GBM thickness established in our laboratory for females is 373 +/- 55 nm. Podocyte foot process effacement is mild. No endothelial tubuloreticular inclusions are identified. Performed By: #### S URGP #### [facility] (DEFAULT) [address] [place] [address] Pathologic Diagnosis Normal [facility] Comment on above: Result Comment: Bill Méndez eft kidney, [place], biopsy: Diffuse acute tubular necrosis (ATN) with mild tubular epithelial vacuolization. A few scattered tubular Tamm-Horsfall protein casts and small scattered foci of interstitial inflammation. Note: There is no evidence of an active glomerulonephritis or immune complex deposits. The acute renal injury is probably secondary to the ATN, which can be multifactorial. It could be due to the recent infection, prolonged antibiotic treatment, circulatory issues, or electrolyte disturbances. A few small birefringent calcium oxalate crystals are also noted, but they are very few in number and do not support a definitive diagnosis of oxalate nephropathy. Interstitial fibrosis and tubular atrophy is quite mild, involving less than 10% of the renal cortex in the biopsy specimen. The glomeruli probably show mild mesangial expansion, but there are no obvious mesangial nodules/Kimmelstiel-Domo nodules. On ultrastructural examination the glomerular basement membrane is moderately thickened, so there is probably evolving diabetic nephropathy. Podocyte foot process effacement is mild. The biopsy findings were discussed with Dr. Uriel Grande on 03/21/2025. Lab Use Only: JobID [id number] at 1516 EDT Performed By: #### S URGP #### [facility] (DEFAULT) [address] [place] [address] Professional Interpretation Performed at: [facility] Comment on above: Result Comment: [facility] For Immediate Release to Patient's [facility] Yes [address] [place] [address] Performed By: #### S URGP #### [facility] (DEFAULT) [address] [place] [address] Wound Cultureon 03-20-2025 [facility] Comment on above: Performed By: #### L 8200.1075, M100.2000, M100.3000 ####[facility] [address] [place], [place], [id number] ANCAon 03-19-2025 Atypical pANCA <1:20 Normal Neg:<1:[address] [facility] Comment on above: Result Comment: The atypical pANCA pattern has been observed in asignificant percentage of patients with ulcerative colitis,primary sclerosing cholangitis and autoimmune hepatitis. Performed By: #### L 3300.1200, L3400.4200, L3100.5700, L3100.5800, L3100.5500 ####[facility] [address] [place], [address] Cytoplasmic Ab <1:20 Normal Neg:<1:[address] [facility] Comment on above: Performed By: #### L 3300.1200, L3400.4200, L3100.5700, L3100.5800, L3100.5500 ####[facility] [address] [place], [address] Perinuclear Ab. <1:20 Normal Neg:<1:[address] [facility] Comment on above: Result Comment: The presence of positive fluorescence exhibiting P-ANCA orC-ANCA patterns alone is not specific for the diagnosis ofWegener's Granulomatosis (WG) or microscopic polyangiitis.Decisions about treatment should not be based solely onANCA IFA results. The International ANCA Group Consensusrecommends follow up testing of positive sera with both IN-3 and MPO-ANCA enzyme immunoassays. As many as 5% serumsamples are positive only by EIA. Ref. AM J Clin Hbtnae3790;111:507-513. Performed By: #### L 3300.1200, L3400.4200, L3100.5700, L3100.5800, L3100.5500 ####[facility] [address] [place], [address] Anaerobic cultureOrdered By: Lucas Coronado on 03-19-2025 Bacteria identified Anaer cx Nom (Unsp spec) No anaerobic bacteria isolated. [facility] Anti-Glomerular Basement Mem bon 03-19-2025 ANTI-GLOM BM Ab < 0.2 Normal 0.0-0.[address] [facility] Comment on above: Result Comment: Perf ormed at: - [facility] [address] [place], [place] [id number] Director: Rhys Fontanez PhD, Phone: [phone] at: - [facility] [id number] Director: Jono Toscano MD, Phone: [phone] Performed By: #### L 3300.1200, L3400.4200, L3100.5700, L3100.5800, L3100.5500 ####[facility] [address] [place], [address] Arterial study reportOrdered By: Fitz Velazquez on 03-19-2025 Noninvasive arteriosclerosis study report [facility] [address] [place] [address] Ankle Brachial Index 03/16/25 1357 MR#: [id number] Acct: [id number] Name: MISAEL MEDINA Rep #:[id number] : 1950 74 From: Fitz Chinchilla Attending Dr: Dr. Fitz Ryan, DO Status: ADM IN Ordering Dr: Lucas Coronado DPM Date: 03/16/25 Location: U Sex: F C Admitted: 03/13/25 Reason For Study Reason For Study: RLE ULcer Procedure A bilateral lower extremity continuous wave Doppler with analog waveform analysis and ankle brachial indexes. Left Segmental Pressures Left brachial= 101mmHg. Left posterior tibial artery = 145mmHg. Left dorsalis pedis artery = >254mmHg. Left digit = 76 mmHg. The left posterior tibial artery waveforms are triphasic. The left dorsalis pedis waveforms are triphasic. Right Segmental Pressures Right posterior tibial artery = 211mmHg. Right dorsalis pedis artery = >254mmHg.Unable to acquire digit due to open wound. The right posterior tibial artery waveforms are biphasic. The right dorsalis pedis waveforms are biphasic. Indices The right ankle brachial index by the posterior tibial artery is N/C. The right ankle brachial index by the dorsalis pedis is N/C. The left ankle brachial index by the posterior tibial artery is 1.44. The left ankle brachial index by the dorsalis pedis is N/C. VL/Ankle Brachial Index Interpretation Summary Right ROJELIO 2.09, artificially elevated. Doppler/PVR waveforms of the right ankle mildly diminished at rest. Left ROJELIO 1.44, normal. TBI and Doppler/PVR waveforms of the left ankle normal atrest. Ordering Physician: Lucas Coronado Referring Physician: Donal Castle Performed By: Nabor Colorado, CARLOS 03/19/25 1349 Date _ Fitz Velazquez MD CC: DPM Dr. Lucas Coronado; Dr. Donal Castle MD; Dr. Fitz Ryan DO ~ Date Dictated: 03/16/25 1357 Date Transcribed: 03/19/25 134 Deal Architect: Signed [facility] Work Phone: Basic Metabolic Profile (BMP )on 03-19-2025 BUN/CRE 13.1 RATIO Normal 10-[address] [facility] Comment on above: Performed By: #### L 500.2500, L501.9520 ####[facility] [address] [place], [address] Calcium [Mass/Vol] 7.9 mg/dL Normal 7.6-11.0 [facility] Comment on above: Performed By: #### L 500.2500, L501.9520 ####[facility] [address] [place], [address] Chloride [Moles/Vol] 103 mmol/L Normal 98-108 [facility] Comment on above: Performed By: #### L 500.2500, L501.9520 ####[facility] [address] [place], [address] CO2 [Moles/Vol] 17.4 mmol/L Low 21.0-32.[address] [facility] Comment on above: Performed By: #### L 500.2500, L501.9520 ####[facility] [address] [place], [address] Creatinine [Mass/Vol] 4.52 mg/dL High 0.70-1.20 [facility] Comment on above: Performed By: #### L 500.2500, L501.20 ####[facility] [address] [place], [address] ECRCL 13.19 ml/min Low 50-[address] [facility] Comment on above: Performed By: #### L 500.2500, L5.9520 ####[facility] [address] [place], [address] GAP 14 Normal 5-[address] [facility] Comment on above: Performed By: #### L 500.2500, L5.9520 ####[facility] [address] [place], [address] GFR/1.73 sq M.predicted among non-blacks MDRD (S/P/Bld) [Vol rate/Area] 10 mL/min/{1.73_m2} Low >[address] [facility] Comment on above: Result Comment: mL/m in/1.73m2 CKD-EPI Creatinine Equation (2020) Performed By: #### L 500.2500, L5.20 ####[facility] [address] [place], [address] Glucose [Mass/Vol] 92 mg/dL Normal 70-99 [facility] Comment on above: Performed By: #### L 500.2500, L501.9520 ####[facility] [address] [place], [address] Potassium [Moles/Vol] 5.4 mmol/L High 3.3-5.1 [facility] Comment on above: Result Comment: Hemo lysis present, Results??could be affected.?? Performed By: #### L 500.2500, L501.9520 ####[facility] [address] [place], [address] Sodium [Moles/Vol] 134 mmol/L Normal 133-145 [facility] Comment on above: Performed By: #### L 500.2500, L501.9520 ####[facility] [address] [place], [address] Urea nitrogen [Mass/Vol] 59 mg/dL High 4-[address] [facility] Comment on above: Performed By: #### L 500.2500, L501.9520 ####[facility] [address] [place], [address] Bedside Glucoseon 03-19-2025 FINGERSTICK GLU 101 mg/dL Normal 74-[address] [facility] Comment on above: Result Comment: RONNIE GEMENT OF PATIENT CARE PER NURSING PROTOCOL Performed By: #### L 501.080 ####[facility] [address] [place], [address] FINGERSTICK GLU 85 mg/dL Normal 74-[address] [facility] Comment on above: Result Comment: RONNIE GEMENT OF PATIENT CARE PER NURSING PROTOCOL Performed By: #### L 501.080 ####[facility] [address] [place], [address] FINGERSTICK GLU 99 mg/dL Normal 74-[address] [facility] Comment on above: Result Comment: RONNIE GEMENT OF PATIENT CARE PER NURSING PROTOCOL Performed By: #### L 501.080 ####[facility] [address] [place], [address] Blood manual differential co mment interpretation (narrative result)Ordered By: Bassam Casey on 03-19-2025 Manual differential comment Ken[place] (Bld) [Interp] See comment [facility] Comment on above: 1+PolychromasiaModer ately Decreased Platelets CBC-Complete Blood Cnt No Di ffon 03-19-2025 Erythrocyte distribution width (RBC) [Ratio] 17.5 % High 11.6-14.[address] [facility] Comment on above: Performed By: #### L 100.4500, L100.0500 ####[facility] [address] [place], [address] Hematocrit (Bld) [Volume fraction] 36.5 % Low 37-[address] [facility] Comment on above: Performed By: #### L 100.4500, L100.0500 ####[facility] [address] [place], [address] Hemoglobin (Bld) [Mass/Vol] 10.4 g/dL Low 12.0-15.[address] [facility] Comment on above: Performed By: #### L 100.4500, L100.0500 ####[facility] [address] [place], [address] MCH (RBC) [Entitic mass] 26.1 pg Low 27.0-32.[address] [facility] Comment on above: Performed By: #### L 100.4500, L100.0500 ####[facility] [address] [place], [address] MCHC (RBC) [Mass/Vol] 28.5 g/dL Low 32-36 [facility] Comment on above: Performed By: #### L 100.4500, L100.0500 ####[facility] [address] [place], [address] MCV (RBC) [Entitic vol] 91.7 fL Normal 81-99 [facility] Comment on above: Performed By: #### L 100.4500, L100.0500 ####[facility] [address] [place], [address] Platelet mean volume (Bld) [Entitic vol] 10.7 fL Normal 6.2-12.[address] [facility] Comment on above: Performed By: #### L 100.4500, L100.0500 ####[facility] [address] [place], [address] Platelets (Bld) [#/Vol] 82 10*3/uL Low 150-450 [facility] Comment on above: Performed By: #### L 100.4500, L100.0500 ####[facility] [address] [place], [address] RBC (Bld) [#/Vol] 3.98 10*6/uL Low 4.2-5.4 [facility] Comment on above: Performed By: #### L 100.4500, L100.0500 ####[facility] [address] [place], [address] RDW SD 58.4 fl High 35.1-43.[address] [facility] Comment on above: Performed By: #### L 100.4500, L100.0500 ####[facility] [address] [place], [address] WBC (Bld) [#/Vol] 7.4 10*3/uL Normal 4.4-11.0 [facility] Comment on above: Performed By: #### L 100.4500, L100.0500 ####[facility] [address] [place], [address] Complement C3on 03-19-2025 COMP C3 131 mg/dL Normal 82-[address] [facility] Comment on above: Performed By: #### L 3300.1200, L3400.4200, L3100.5700, L3100.5800, L3100.5500 ####[facility] [address] [place], [address] Complement C4on 03-19-2025 COMPLEMENT, C4 33 mg/dL Normal 12-[address] [facility] Comment on above: Performed By: #### L 3300.1200, L3400.4200, L3100.5700, L3100.5800, L3100.5500 ####[facility] [address] [place], [address] Decalcification bone/plaqueo n 03-19-2025 Decalcification bone/plaque Normal [facility] Comment on above: Performed By: #### P DEC ####[facility] [address] [place], [address] Differential Commenton 03-19 SMEAR COMMENT Normal [facility] Comment on above: Result Comment: 1+Po lychromasiaModerately Decreased Platelets Performed By: #### L 100.4500, L100.0500 ####[facility] [address] [place], [address] Fungus cultureOrdered By: Octavio Coronado on 03-19-2025 Fungus identified Cx Nom (Unsp spec) [facility] Fungus stainOrdered By: Basilio Coronado on 03-19-2025 Fungus identified Fungus stain Nom (Unsp spec) [facility] Gram Stainon 03-19-2025 GS COLLECTED IN OR-POST LAVAGE CX SWAB RIGHTGREAT TOE Gram Stain Rare Gram positive cocci Normal [facility] Comment on above: Performed By: #### M 100.2000, M100.4001, M100.3000 ####[facility] [address] [place], [address] Gram stainOrdered By: Lucas Coronado on 03-19-2025 Microscopic observation Gram stain Nom (Unsp spec) [facility] MR/POSTOP.ANEon 03-19-2025 MR/POSTOP.ANE Normal [facility] MR/EWCCRFVV3ti 03-19-2025 MR/POSTOPAN2 Normal [facility] Operative Reporton Operative Report Normal [facility] Routine wound cultureOrdered By: Lucas Coronado on 03-19-2025 Microbial culture, routine Staphylococcus haemolyticus Abnormal [facility] Microbial culture, routine Meth. resistant Staph. aureus Abnormal [facility] Microbial culture, routine Corynebacterium amycolatum Abnormal [facility] Microbial culture, routine Staphylococcus epidermidis Abnormal [facility] Microbial culture, routine Corynebacterium minutissimum Abnormal [facility] TSH DL <= 0.005 mIU/L QnOrde red By: Bassam Casey on 03-19-2025 TSH Qn 4.300 uIU/mL High 0.300-4.[address] [facility] Thyroid Stim Hormone (TSH)on 03-19-2025 TSH 4.300 uIU/mL High 0.300-4.[address] [facility] Comment on above: Performed By: #### L 500.2500, L501.9520 ####[facility] [address] [place], [address] Basic Metabolic Profile (BMP )on 03-18-2025 BUN/CRE 13.8 RATIO Normal 10-[address] [facility] Comment on above: Performed By: #### L 500.2500 ####[facility] [address] [place], [address] Calcium [Mass/Vol] 7.8 mg/dL Normal 7.6-11.0 [facility] Comment on above: Performed By: #### L 500.2500 ####[facility] [address] [place], [address] Chloride [Moles/Vol] 106 mmol/L Normal 98-108 [facility] Comment on above: Performed By: #### L 500.2500 ####[facility] [address] [place], [address] CO2 [Moles/Vol] 17.9 mmol/L Low 21.0-32.[address] [facility] Comment on above: Performed By: #### L 500.2500 ####[facility] [address] [place], [address] Creatinine [Mass/Vol] 4.09 mg/dL High 0.70-1.20 [facility] [place] Comment on above: Performed By: #### L 500.2500 ####[facility] [address] [place], [address] ECRCL 14.29 ml/min Low 50-[address] [facility] Comment on above: Performed By: #### L 500.2500 ####[facility] [address] [place], [address] GAP 11 Normal 5-[address] [facility] Comment on above: Performed By: #### L 500.2500 ####[facility] [address] [place], [address] GFR/1.73 sq M.predicted among non-blacks MDRD (S/P/Bld) [Vol rate/Area] 11 mL/min/{1.73_m2} Low >[address] [facility] Comment on above: Result Comment: mL/m in/1.73m2 CKD-EPI Creatinine Equation (2020) Performed By: #### L 500.2500 ####[facility] [address] [place], [address] Glucose [Mass/Vol] 139 mg/dL High 70-99 [facility] Comment on above: Performed By: #### L 500.2500 ####[facility] [address] [place], [address] Potassium [Moles/Vol] 4.7 mmol/L Normal 3.3-5.1 [facility] Comment on above: Performed By: #### L 500.2500 ####[facility] [address] [place], [address] Sodium [Moles/Vol] 135 mmol/L Normal 133-145 [facility] Comment on above: Performed By: #### L 500.2500 ####[facility] [address] [place], [address] Urea nitrogen [Mass/Vol] 57 mg/dL High 4-[address] [facility] Comment on above: Performed By: #### L 500.2500 ####[facility] [address] [place], [address] Bedside Glucoseon 05-04-2025 FINGERSTICK GLU 130 mg/dL High 74-[address] [facility] Comment on above: Result Comment: RONNIE GEMENT OF PATIENT CARE PER NURSING PROTOCOL Performed By: #### L 501.080 ####[facility] [address] [place], [address] FINGERSTICK GLU 136 mg/dL High 74-[address] [facility] Comment on above: Result Comment: RONNIE GEMENT OF PATIENT CARE PER NURSING PROTOCOL Performed By: #### L 501.080 ####[facility] [address] [place], [address] FINGERSTICK GLU 117 mg/dL High 74-[address] [facility] Comment on above: Result Comment: RONNIE GEMENT OF PATIENT CARE PER NURSING PROTOCOL Performed By: #### L 501.080 ####[facility] [address] [place], [address] CBC-Complete Blood Cnt No Di ffon 03-18-2025 Erythrocyte distribution width (RBC) [Ratio] 17.2 % High 11.6-14.[address] [facility] Comment on above: Performed By: #### L 100.0500 ####[facility] [address] [place], [address] Hematocrit (Bld) [Volume fraction] 35.8 % Low 37-[address] [facility] Comment on above: Performed By: #### L 100.0500 ####[facility] [address] [place], [address] Hemoglobin (Bld) [Mass/Vol] 10.7 g/dL Low 12.0-15.[address] [facility] Comment on above: Performed By: #### L 100.0500 ####[facility] [address] [place], [address] MCH (RBC) [Entitic mass] 26.2 pg Low 27.0-32.[address] [facility] Comment on above: Performed By: #### L 100.0500 ####[facility] [address] [place], [address] MCHC (RBC) [Mass/Vol] 29.9 g/dL Low 32-36 [facility] [place] Comment on above: Performed By: #### L 100.0500 ####[facility] [address] [place], [address] MCV (RBC) [Entitic vol] 87.7 fL Normal 81-99 [facility] Comment on above: Performed By: #### L 100.0500 ####[facility] [address] [place], [address] Platelet mean volume (Bld) [Entitic vol] 8.9 fL Normal 6.2-12.[address] [facility] Comment on above: Performed By: #### L 100.0500 ####[facility] [address] [place], [address] Platelets (Bld) [#/Vol] 157 10*3/uL Normal 150-[address] [facility] Comment on above: Performed By: #### L 100.0500 ####[facility] [address] [place], [address] RBC (Bld) [#/Vol] 4.08 10*6/uL Low 4.2-5.4 [facility] Comment on above: Performed By: #### L 100.0500 ####[facility] [address] [place], [address] RDW SD 54.8 fl High 35.1-43.[address] [facility] Comment on above: Performed By: #### L 100.0500 ####[facility] [address] [place], [address] WBC (Bld) [#/Vol] 8.0 10*3/uL Normal 4.4-11.0 [facility] Comment on above: Performed By: #### L 100.0500 ####[facility] [address] [place], [address] Basic Metabolic Profile (BMP )on 03-17-2025 BUN/CRE 15.0 RATIO Normal 10-[address] [facility] Comment on above: Performed By: #### L 500.2500 ####[facility] [address] [place], [address] Calcium [Mass/Vol] 8.0 mg/dL Normal 7.6-11.0 [facility] Comment on above: Performed By: #### L 500.2500 ####[facility] [address] [place], [address] Chloride [Moles/Vol] 106 mmol/L Normal 98-108 [facility] Comment on above: Performed By: #### L 500.2500 ####[facility] [address] [place], [address] CO2 [Moles/Vol] 17.4 mmol/L Low 21.0-32.[address] [facility] Comment on above: Performed By: #### L 500.2500 ####[facility] [address] [place], [address] Creatinine [Mass/Vol] 4.76 mg/dL High 0.70-1.20 [facility] Comment on above: Performed By: #### L 500.2500 ####[facility] [address] [place], [address] ECRCL 12.37 ml/min Low 50-[address] [facility] Comment on above: Performed By: #### L 500.2500 ####[facility] [address] [place], [address] GAP 13 Normal 5-[address] [facility] Comment on above: Performed By: #### L 500.2500 ####[facility] [address] [place], [address] GFR/1.73 sq M.predicted among non-blacks MDRD (S/P/Bld) [Vol rate/Area] 9 mL/min/{1.73_m2} Low >[address] [facility] Comment on above: Result Comment: mL/m in/1.73m2 CKD-EPI Creatinine Equation (2020) Performed By: #### L 500.2500 ####[facility] [address] [place], [address] Glucose [Mass/Vol] 80 mg/dL Normal 70-99 [facility] Comment on above: Performed By: #### L 500.2500 ####[facility] [address] [place], [address] Potassium [Moles/Vol] 4.9 mmol/L Normal 3.3-5.1 [facility] Comment on above: Performed By: #### L 500.2500 ####[facility] [address] [place], [address] Sodium [Moles/Vol] 136 mmol/L Normal 133-145 [facility] Comment on above: Performed By: #### L 500.2500 ####[facility] [address] [place], [address] Urea nitrogen [Mass/Vol] 71 mg/dL High 4-[address] [facility] Comment on above: Performed By: #### L 500.2500 ####[facility] [address] [place], [address] Bedside Glucoseon 03-17-2025 FINGERSTICK GLU 185 mg/dL High 74-[address] [facility] Comment on above: Result Comment: RONNIE GEMENT OF PATIENT CARE PER NURSING PROTOCOL Performed By: #### L 501.080 ####[facility] [address] [place], [address] FINGERSTICK GLU 155 mg/dL High 74-[address] [facility] Comment on above: Result Comment: RONNIE GEMENT OF PATIENT CARE PER NURSING PROTOCOL Performed By: #### L 501.080 ####[facility] [address] [place], [address] FINGERSTICK GLU 167 mg/dL High 74-[address] [facility] Comment on above: Result Comment: RONNIE GEMENT OF PATIENT CARE PER NURSING PROTOCOL Performed By: #### L 501.080 ####[facility] [address] [place], [address] FINGERSTICK GLU 104 mg/dL Normal 74-[address] [facility] Comment on above: Result Comment: RONNIE GEMENT OF PATIENT CARE PER NURSING PROTOCOL Performed By: #### L 501.080 ####[facility] [address] [place], [address] FINGERSTICK GLU 77 mg/dL Normal 74-[address] [facility] Comment on above: Result Comment: RONNIE GEMENT OF PATIENT CARE PER NURSING PROTOCOL Performed By: #### L 501.080 ####[facility] [address] [place], [address] Ankle Brachial Indexon 03-16 Ankle Brachial Index Normal [facility] Anti-dsDNA Abon 03-16-2025 ANTI-DNA (DS)AB <1 Normal 0-[address] [facility] Comment on above: Result Comment: Nega tive <5 Equivocal 5 - 9 Positive >9Performed at: [facility] [address] [id number] Director: Rhys Fontanez PhD, Phone: [phone] Performed By: #### L 3300.1200, L3400.4200, L3100.5700, L3100.5800, L3100.5500 ####[facility] [address] [place], [address] Basic Metabolic Profile (BMP )on 03-16-2025 BUN/CRE 16.2 RATIO Normal 10-[address] [facility] Comment on above: Performed By: #### L 500.2500 ####[facility] [address] [place], [address] Calcium [Mass/Vol] 8.2 mg/dL Normal 7.6-11.0 [facility] Comment on above: Performed By: #### L 500.2500 ####[facility] [address] [place], [address] Chloride [Moles/Vol] 108 mmol/L Normal 98-108 [facility] Comment on above: Performed By: #### L 500.2500 ####[facility] [address] [place], [address] CO2 [Moles/Vol] 16.4 mmol/L Low 21.0-32.[address] [facility] Comment on above: Performed By: #### L 500.2500 ####[facility] [address] [place], [address] Creatinine [Mass/Vol] 5.96 mg/dL High 0.70-1.20 [facility] Comment on above: Performed By: #### L 500.2500 ####[facility] [address] [place], [address] ECRCL 9.88 ml/min Invalid Interpretation Code 50-[address] [facility] Comment on above: Performed By: #### L 500.2500 ####[facility] [address] [place], [address] GAP 13 Normal 5-[address] [facility] Comment on above: Performed By: #### L 500.2500 ####[facility] [address] [place], [address] GFR/1.73 sq M.predicted among non-blacks MDRD (S/P/Bld) [Vol rate/Area] 7 mL/min/{1.73_m2} Low >[address] [facility] Comment on above: Result Comment: mL/m in/1.73m2 CKD-EPI Creatinine Equation (2020) Performed By: #### L 500.2500 ####[facility] [address] [place], [address] Glucose [Mass/Vol] 138 mg/dL High 70-99 [facility] Comment on above: Performed By: #### L 500.2500 ####[facility] [address] [place], [address] Potassium [Moles/Vol] 5.6 mmol/L High 3.3-5.1 [facility] Comment on above: Performed By: #### L 500.2500 ####[facility] [address] [place], [address] Sodium [Moles/Vol] 137 mmol/L Normal 133-145 [facility] Comment on above: Performed By: #### L 500.2500 ####[facility] [address] [place], [address] Urea nitrogen [Mass/Vol] 96 mg/dL High 4-[address] [facility] Comment on above: Performed By: #### L 500.2500 ####[facility] [address] [place], [address] Bedside Glucoseon 03-16-2025 FINGERSTICK GLU 91 mg/dL Normal 74-[address] [facility] Comment on above: Result Comment: RONNIE GEMENT OF PATIENT CARE PER NURSING PROTOCOL Performed By: #### L 501.080 ####[facility] [address] [place], [address] FINGERSTICK GLU 107 mg/dL High 74-[address] [facility] Comment on above: Result Comment: RONNIE GEMENT OF PATIENT CARE PER NURSING PROTOCOL Performed By: #### L 501.080 ####[facility] [address] [place], [address] FINGERSTICK GLU 111 mg/dL High 74-[address] [facility] Comment on above: Result Comment: RONNIE GEMENT OF PATIENT CARE PER NURSING PROTOCOL Performed By: #### L 501.080 ####[facility] [address] [place], [address] FINGERSTICK GLU 130 mg/dL High 74-[address] [facility] Comment on above: Result Comment: RONNIE GEMENT OF PATIENT CARE PER NURSING PROTOCOL Performed By: #### L 501.080 ####[facility] [address] [place], [address] CBC W/Diff, Automatedon 05-0 2-5 Absolute Lymph 1.10 X10 3/uL Normal 0.83-4.[address] [facility] Comment on above: Performed By: #### L 100.0100 ####[facility] [address] [place], [address] Absolute Neut 6.0 X10 3/uL Normal 2.0-7.[address] [facility] Comment on above: Performed By: #### L 100.0100 ####[facility] [address] [place], [address] Basophils/100 WBC (Bld) 0.2 % Normal 0-1 [facility] Comment on above: Performed By: #### L 100.0100 ####[facility] [address] [place], [address] Eosinophils/100 WBC (Bld) 2.3 % Normal 0-[address] [facility] Comment on above: Performed By: #### L 100.0100 ####[facility] [address] [place], [address] Erythrocyte distribution width (RBC) [Ratio] 17.5 % High 11.6-14.[address] [facility] Comment on above: Performed By: #### L 100.0100 ####[facility] [address] [place], [address] Hematocrit (Bld) [Volume fraction] 35.6 % Low 37-[address] [facility] Comment on above: Performed By: #### L 100.0100 ####[facility] [address] [place], [address] Hemoglobin (Bld) [Mass/Vol] 10.4 g/dL Low 12.0-15.[address] [facility] Comment on above: Performed By: #### L 100.0100 ####[facility] [address] [place], [address] IG% 0.400 Normal 0.0-0.[address] [facility] Comment on above: Result Comment: IG% - Immature Granulocytes (promyelocytes, myelocytes andmetamyelocytes) > 1% indicates that a LEFT SHIFT is Present. Performed By: #### L 100.0100 ####[facility] [address] [place], [address] Lymphocytes/100 WBC (Bld) 13.5 % Low 19-[address] [facility] Comment on above: Performed By: #### L 100.0100 ####[facility] [address] [place], [address] MCH (RBC) [Entitic mass] 25.6 pg Low 27.0-32.[address] [facility] Comment on above: Performed By: #### L 100.0100 ####[facility] [address] [place], [address] MCHC (RBC) [Mass/Vol] 29.2 g/dL Low 32-36 [facility] Comment on above: Performed By: #### L 100.0100 ####[facility] [address] [place], [address] MCV (RBC) [Entitic vol] 87.5 fL Normal 81-99 [facility] Comment on above: Performed By: #### L 100.0100 ####[facility] [address] [place], [address] Monocytes/100 WBC (Bld) 9.3 % Normal 0-10 [facility] Comment on above: Performed By: #### L 100.0100 ####[facility] [address] [place], [address] Neutrophils/100 WBC (Bld) 74.3 % High 47-[address] [facility] Comment on above: Performed By: #### L 100.0100 ####[facility] [address] [place], [address] Nucleated RBC (Bld) [#/Vol] 0.7 10*3/uL Normal 0-[address] [facility] Comment on above: Performed By: #### L 100.0100 ####[facility] [address] [place], [address] Platelet mean volume (Bld) [Entitic vol] 9.3 fL Normal 6.2-12.[address] [facility] Comment on above: Performed By: #### L 100.0100 ####[facility] [address] [place], [address] Platelets (Bld) [#/Vol] 187 10*3/uL Normal 150-[address] [facility] Comment on above: Performed By: #### L 100.0100 ####[facility] [address] [place], [address] RBC (Bld) [#/Vol] 4.07 10*6/uL Low 4.2-5.4 [facility] Comment on above: Performed By: #### L 100.0100 ####[facility] [address] [place], [address] RDW SD 55.1 fl High 35.1-43.[address] [facility] Comment on above: Performed By: #### L 100.0100 ####[facility] [address] [place], [address] WBC (Bld) [#/Vol] 8.1 10*3/uL Normal 4.4-11.0 [facility] Comment on above: Performed By: #### L 100.0100 ####[facility] [address] [place], [place], [address] CXR for Line Placementon CXR for Line Placement Normal [facility] Electrocardiogram reportOrde red By: Ramone Adams on 03-16-2025 [address]KG [address] [facility] Cardiovascular Services [address] [place] [address] 12 Lead EKG 03/13/25 1401 MR#: [id number] Acct: [id number] Name: MISAEL MEDINA Rep #:[id number] : [id number] 74 From: Ramone Adams MD Attending Dr: Dr. Seth Garnica DO Status: ADM IN Ordering Dr: Seth Garnica DO Da te: 03/13/25 Location: U Sex: F C Admitted: 03/13/25 Test Reason : HIGH K Blood Pressure : */* mmHG Vent. Rate : 73 BPM Atrial Rate : 78 BPM P-R Int : * ms QRS Dur : 100 ms QT Int : 386 ms P-R-T Axes : * 117 150 degrees QTcB Int : 425 ms ATRIAL FIBRILLATION Right axis deviation Pulmonary disease pattern Nonspecific T wave abnormality Abnormal ECG When compared with ECG of 30-Oct-2024 15:14, Current undetermined rhythm precludes rhythm comparison, needs review QRS axis Shifted right Nonspecific T wave abnormality, improved in Inferior leads Inverted T waves have replaced nonspecific T wave abnormality in Lateral leads Confirmed by RAMONE ADAMS MD ([id number]), desk editor MIRNA DRAKE ([id number]) on 03/16/2025 8:31:01 AM Referred By: UG/TL Confirmed By: RAMONE ADAMS MD 03/16/25 0831 Date _ Ramone Adams MD CC: Dr. Seth Garnica DO; Dr. Donal Castle MD ~ Signed [facility] Work Phone: Foot min 3 Viewson 5 Foot min 3 Views Normal [facility] Gram Stainon 03-16-2025 GS Positive Normal [facility] Comment on above: Performed By: #### L 8200.1075, M100.2000, M100.3000 ####[facility] [address] [place], [address] Gram stainOrdered By: Yonny Mims on 03-16-2025 Microscopic observation Gram stain Nom (Unsp spec) [facility] Hemoglobin A1con 03-16-2025 HbA1c (Bld) [Mass fraction] 7.3 % High <=5.[address] [facility] Comment on above: Result Comment: Norm al < 5.7 % Prediabetic 5.7 - 6.4 % Diabetic >or= 6.5 % Please note range changes. Performed By: #### L 501.9985 ####[facility] [address] [place], [place], [address] Hemoglobin A1c percentageOrd ered By: Tyler Juan on 03-16-2025 HbA1c (Bld) [Mass fraction] 7.3 % High <5.[address] [facility] Comment on above: Normal < 5.7 % Predi abetic 5.7 - 6.4 % Diabetic >or= 6.5 % Please note range changes. L3890.6102on 03-16-2025 HEP B Surf Ag Non-Reactive Normal Nonreactive [facility] Comment on above: Order Comment: Reaso n for Exam: for dialysis arrangements Result Comment: Reac tive: Presumptive evidence of HBV. Repeatedly reactivesamples must be confirmed using a neutralization test([employer] HBsAg Confirmatory Test)Non-Reactive: HBsAg not detected; does not exclude thepossibility of exposure to HBV Performed By: #### L 3890.6102 ####[facility] [address] [place], [address] MR/POSTOP.ANEon 03-16-2025 MR/POSTOP.ANE Normal [facility] MR/[id number] 03-16-2025 MR/POSTOPAN2 Normal [facility] MRSA Wound DNA by PCRon 0 MRSA DNA ASSAY Negative Normal Negative [facility] Comment on above: Order Comment: right great toeright great toe Performed By: #### L 8200.1075, M100.2000, M100.3000 ####[facility] [address] [place], [address] SA DNA ASSAY Negative Normal Negative [facility] Comment on above: Order Comment: right great toeright great toe Performed By: #### L 8200.1075, M100.2000, M100.3000 ####[facility] [address] [place], [address] Operative Reporton Operative Report Normal [facility] Routine wound cultureOrdered By: Seth Garnica on 03-16-2025 Microbial culture, routine Enterococcus casseliflavus (D) Abnormal [facility] Staphylococcus aureus DNA de tection by probe and target amplification methodOrdered By: Seth Garnica on 03-16-2025 S. aureus DNA KATYA+probe Ql (Unsp spec) Negative Negative [facility] Activated partial thrombopla stin time (aPTT) in platelet poor plasma by coagulation aOrdered By: Lorraine Grande on 03-15-2025 aPTT Coag (PPP) [Time] 28.0 s 24.1-36.2 [facility] Basic Metabolic Profile (BMP )on 03-15-2025 BUN/CRE 16.1 RATIO Normal 10-[address] [facility] Comment on above: Performed By: #### L 500.2500 ####[facility] [address] [place], [address] Calcium [Mass/Vol] 8.5 mg/dL Normal 7.6-11.0 [facility] Comment on above: Performed By: #### L 500.2500 ####[facility] [address] [place], [address] Chloride [Moles/Vol] 111 mmol/L High 98-108 [facility] Comment on above: Performed By: #### L 500.2500 ####[facility] [address] [place], [address] CO2 [Moles/Vol] 14.7 mmol/L Low 21.0-32.[address] [facility] Comment on above: Performed By: #### L 500.2500 ####[facility] [address] [place], [address] Creatinine [Mass/Vol] 5.79 mg/dL High 0.70-1.20 [facility] Comment on above: Performed By: #### L 500.2500 ####[facility] [address] [place], [address] ECRCL 10.10 ml/min Low 50-[address] [facility] Comment on above: Performed By: #### L 500.2500 ####[facility] [address] [place], [address] GAP 12 Normal 5-[address] [facility] Comment on above: Performed By: #### L 500.2500 ####[facility] [address] [place], [address] GFR/1.73 sq M.predicted among non-blacks MDRD (S/P/Bld) [Vol rate/Area] 7 mL/min/{1.73_m2} Low >[address] [facility] Comment on above: Result Comment: mL/m in/1.73m2 CKD-EPI Creatinine Equation (2020) Performed By: #### L 500.2500 ####[facility] [address] [place], [address] Glucose [Mass/Vol] 106 mg/dL High 70-99 [facility] Comment on above: Performed By: #### L 500.2500 ####[facility] [address] [place], [address] Potassium [Moles/Vol] 6.2 mmol/L Invalid Interpretation Code 3.3-5.[address] [facility] Comment on above: Result Comment: Crit ical Result(s) Called to Gabriela MENENDEZ (PCU): Pbr:??Results read back by same. Performed By: #### L 500.2500 ####[facility] [address] [place], [address] Sodium [Moles/Vol] 138 mmol/L Normal 133-145 [facility] Comment on above: Performed By: #### L 500.2500 ####[facility] [address] [place], [address] Urea nitrogen [Mass/Vol] 93 mg/dL High 4-[address] [facility] Comment on above: Performed By: #### L 500.2500 ####[facility] [address] [place], [address] Bedside Glucoseon 03-15-2025 FINGERSTICK GLU 176 mg/dL High 74-[address] [facility] Comment on above: Result Comment: RONNIE GEMENT OF PATIENT CARE PER NURSING PROTOCOL Performed By: #### L 501.080 ####[facility] [address] [place], [address] FINGERSTICK GLU 149 mg/dL High 74-[address] [facility] Comment on above: Result Comment: RONNIE GEMENT OF PATIENT CARE PER NURSING PROTOCOL Performed By: #### L 501.080 ####[facility] [address] [place], [address] FINGERSTICK GLU 153 mg/dL High 74-[address] [facility] Comment on above: Result Comment: RONNIE GEMENT OF PATIENT CARE PER NURSING PROTOCOL Performed By: #### L 501.080 ####[facility] [address] [place], [address] FINGERSTICK GLU 99 mg/dL Normal 74-[address] [facility] Comment on above: Result Comment: RONNIE GEMENT OF PATIENT CARE PER NURSING PROTOCOL Performed By: #### L 501.080 ####[facility] [address] [place], [address] Consultation - Surgicalon Consultation - Surgical Normal [facility] International normalized rat io (INR) calculationOrdered By: Lorraine Grande on 03-15-2025 INR Coag (Bld) [Relative time] 1.2 {INR} [facility] Partial Thromboplast Timeon 03-15-2025 aPTT Coag (Bld) [Time] 28.0 s Normal 24.1-36.2 [facility] Comment on above: Performed By: #### L 300.4310, L300.3900 ####[facility] [address] [place], [address] Potassiumon 03-15-2025 Potassium [Moles/Vol] 5.8 mmol/L High 3.3-5.1 [facility] Comment on above: Performed By: #### L 501.5600 ####[facility] [address] [place], [address] Prothrombin Time w/INRon INR Coag (PPP) [Relative time] 1.2 {INR} Normal [facility] Comment on above: Performed By: #### L 300.4310, L300.3900 ####[facility] [address] [place], [address] PT Coag (PPP) [Time] 15.5 s High 11.7-14.9 [facility] Comment on above: Performed By: #### L 300.4310, L300.3900 ####[facility] [address] [place], [address] Prothrombin timeOrdered By: Lorraine Grande on 03-15-2025 PT Coag (PPP) [Time] 15.5 s High 11.7-14.9 [facility] Serum DNA double strand anti body assay (units/volume)Ordered By: Lorraine Grande on 03-15-2025 DNA double strand Ab Qn (S) [IU]/mL 0-[address] [facility] Comment on above: Negative <5 Equivoca l 5 - 9 Positive >9Performed at: [facility] [id number] Director: Rhys Fontanez PhD, Phone: [phone] Serum classic neutrophil cyt oplasmic antibody assay (units/volume)Ordered By: Lorraine Grande on 03-15-2025 Neutrophil cytoplasmic Ab.classic Qn (S) <1:20 titer Neg:<1:[address] [facility] Serum glomerular basement me mbrane antibody assay (units/volume)Ordered By: Lorraine Grande on 03-15-2025 Glomerular basement membrane Ab Qn (S) < 0.2 units 0.0-0.[address] [facility] Comment on above: Performed at: [address] [id number] Director: Rhys Fontanez PhD, Phone: [phone] at: [facility] [address] [id number] Director: Jono Toscano MD, Phone: [phone] Serum or plasma complement C 4 measurement (mass/volume)Ordered By: Lorraine Grande on 03-15-2025 Complement C4 [Mass/Vol] 33 mg/dL 12-[address] [facility] Serum perinuclear neutrophil cytoplasmic antibody titer by immunofluorescenceOrdered By: Lorraine Grande on 03-15-2025 Neutrophil cytoplasmic Ab.perinuclear IF (S) [Titer] <1:20 titer Neg:<1:[address] [facility] Comment on above: The presence of posi tive fluorescence exhibiting P-ANCA orC-ANCA patterns alone is not specific for the diagnosis ofWegener's Granulomatosis (WG) or microscopic polyangiitis.Decisions about treatment should not be based solely onANCA IFA results. The International ANCA Group Consensusrecommends follow up testing of positive sera with both IN-3 and MPO-ANCA enzyme immunoassays. As many as 5% serumsamples are positive only by EIA. Ref. AM J Clin Zhryds1829;111:507-513. Urine Cultureon 03-15-2025 URC Culture exhibits no growth. Normal [facility] Comment on above: Performed By: #### M 100.2200 ####[facility] [address] [place], [address] 12 Lead EKGon 03-14-2025 12 Lead EKG Normal [facility] Basic Metabolic Profile (BMP )on 03-14-2025 GAP UNABLE TO CALCULATE Low 5-15 [facility] Comment on above: Performed By: #### L 500.2500 ####[facility] [address] [place], [address] BUN/CRE 17.1 RATIO Normal 10-[address] [facility] Comment on above: Performed By: #### L 100.0100, L500.2500 ####[facility] [address] [place], [address] Calcium [Mass/Vol] 8.9 mg/dL Normal 7.6-11.0 [facility] Comment on above: Performed By: #### L 100.0100, L500.2500 ####[facility] [address] [place], [address] Chloride [Moles/Vol] 114 mmol/L High 98-108 [facility] Comment on above: Performed By: #### L 100.0100, L500.2500 ####[facility] [address] [place], [address] CO2 [Moles/Vol] 15.1 mmol/L Low 21.0-32.[address] [facility] Comment on above: Performed By: #### L 100.0100, L500.2500 ####[facility] [address] [place], [address] Creatinine [Mass/Vol] 5.38 mg/dL High 0.70-1.20 [facility] Comment on above: Performed By: #### L 100.0100, L500.2500 ####[facility] [address] [place], [address] ECRCL 10.71 ml/min Low 50-[address] [facility] Comment on above: Performed By: #### L 100.0100, L500.2500 ####[facility] [address] [place], [address] GAP 11 Normal 5-[address] [facility] Comment on above: Performed By: #### L 100.0100, L500.2500 ####[facility] [address] [place], [address] GFR/1.73 sq M.predicted among non-blacks MDRD (S/P/Bld) [Vol rate/Area] 8 mL/min/{1.73_m2} Low >[address] [facility] Comment on above: Result Comment: mL/m in/1.73m2 CKD-EPI Creatinine Equation (2020) Performed By: #### L 100.0100, L500.2500 ####[facility] [address] [place], [address] Glucose [Mass/Vol] 79 mg/dL Normal 70-99 [facility] Comment on above: Performed By: #### L 100.0100, L500.2500 ####[facility] [address] [place], [address] Potassium [Moles/Vol] 7.4 mmol/L Invalid Interpretation Code 3.3-5.[address] [facility] Comment on above: Result Comment: Crit ical Result(s) Called at 0750: TO LMCCLUGGAGE by:KCLAPPER??Results read back by same. Performed By: #### L 100.0100, L500.2500 ####[facility] [address] [place], [address] Sodium [Moles/Vol] 140 mmol/L Normal 133-145 [facility] Comment on above: Performed By: #### L 100.0100, L500.2500 ####[facility] [address] [place], [address] Urea nitrogen [Mass/Vol] 92 mg/dL High 4-[address] [facility] Comment on above: Performed By: #### L 100.0100, L500.2500 ####[facility] [address] [place], [address] Bedside Glucoseon 03-14-2025 FINGERSTICK GLU 119 mg/dL High 74-[address] [facility] Comment on above: Result Comment: RONNIE GEMENT OF PATIENT CARE PER NURSING PROTOCOL Performed By: #### L 501.080 ####[facility] [address] [place], [address] FINGERSTICK GLU 137 mg/dL High 74-[address] [facility] Comment on above: Result Comment: RONNIE GEMENT OF PATIENT CARE PER NURSING PROTOCOL Performed By: #### L 501.080 ####[facility] [address] [place], [address] FINGERSTICK GLU 76 mg/dL Normal 74-[address] [facility] Comment on above: Result Comment: RONNIE GEMENT OF PATIENT CARE PER NURSING PROTOCOL Performed By: #### L 501.080 ####[facility] [address] [place], [address] FINGERSTICK GLU 69 mg/dL Low 74-[address] [facility] Comment on above: Result Comment: RONNIE GEMENT OF PATIENT CARE PER NURSING PROTOCOL Performed By: #### L 501.080 ####[facility] [address] [place], [address] FINGERSTICK GLU 76 mg/dL Normal 74-[address] [facility] Comment on above: Result Comment: RONNIE GEMENT OF PATIENT CARE PER NURSING PROTOCOL Performed By: #### L 501.080 ####[facility] [address] [place], [address] CBC W/Diff, Automatedon 04-3 0-2024 Absolute Lymph 1.05 X10 3/uL Normal 0.83-4.[address] [facility] Comment on above: Performed By: #### L 100.0100, L500.2500 ####[facility] [address] [place], [address] Absolute Neut 5.7 X10 3/uL Normal 2.0-7.[address] [facility] Comment on above: Performed By: #### L 100.0100, L500.2500 ####[facility] [address] [place], [address] Basophils/100 WBC (Bld) 0.3 % Normal 0-1 [facility] Comment on above: Performed By: #### L 100.0100, L500.2500 ####[facility] [address] [place], [address] Eosinophils/100 WBC (Bld) 1.1 % Normal 0-[address] [facility] Comment on above: Performed By: #### L 100.0100, L500.2500 ####[facility] [address] [place], [address] Erythrocyte distribution width (RBC) [Ratio] 17.4 % High 11.6-14.[address] [facility] Comment on above: Performed By: #### L 100.0100, L500.2500 ####[facility] [address] [place], [address] Hematocrit (Bld) [Volume fraction] 40.1 % Normal 37-[address] [facility] Comment on above: Performed By: #### L 100.0100, L500.2500 ####[facility] [address] [place], [address] Hemoglobin (Bld) [Mass/Vol] 11.5 g/dL Low 12.0-15.[address] [facility] Comment on above: Performed By: #### L 100.0100, L500.2500 ####[facility] [address] [place], [address] IG% 0.700 Normal 0.0-0.[address] [facility] Comment on above: Result Comment: IG% - Immature Granulocytes (promyelocytes, myelocytes andmetamyelocytes) > 1% indicates that a LEFT SHIFT is Present. Performed By: #### L 100.0100, L500.2500 ####[facility] [address] [place], [address] Lymphocytes/100 WBC (Bld) 14.0 % Low 19-[address] [facility] Comment on above: Performed By: #### L 100.0100, L500.2500 ####[facility] [address] [place], [address] MCH (RBC) [Entitic mass] 26.0 pg Low 27.0-32.[address] [facility] Comment on above: Performed By: #### L 100.0100, L500.2500 ####[facility] [address] [place], [address] MCHC (RBC) [Mass/Vol] 28.7 g/dL Low 32-36 [facility] Comment on above: Performed By: #### L 100.0100, L500.2500 ####[facility] [address] [place], [address] MCV (RBC) [Entitic vol] 90.5 fL Normal 81-99 [facility] Comment on above: Performed By: #### L 100.0100, L500.2500 ####[facility] [address] [place], [address] Monocytes/100 WBC (Bld) 7.7 % Normal 0-10 [facility] Comment on above: Performed By: #### L 100.0100, L500.2500 ####[facility] [address] [place], [address] Neutrophils/100 WBC (Bld) 76.2 % High 47-[address] [facility] Comment on above: Performed By: #### L 100.0100, L500.2500 ####[facility] [address] [place], [address] Nucleated RBC (Bld) [#/Vol] 1.7 10*3/uL Normal 0-[address] [facility] Comment on above: Performed By: #### L 100.0100, L500.2500 ####[facility] [address] [place], [address] Platelet mean volume (Bld) [Entitic vol] 9.6 fL Normal 6.2-12.[address] [facility] Comment on above: Performed By: #### L 100.0100, L500.2500 ####[facility] [address] [place], [address] Platelets (Bld) [#/Vol] 232 10*3/uL Normal 150-[address] [facility] Comment on above: Performed By: #### L 100.0100, L500.2500 ####[facility] [address] [place], [address] RBC (Bld) [#/Vol] 4.43 10*6/uL Normal 4.2-5.4 [facility] Comment on above: Performed By: #### L 100.0100, L500.2500 ####[facility] [address] [place], [address] RDW SD 57.9 fl High 35.1-43.[address] [facility] Comment on above: Performed By: #### L 100.0100, L500.2500 ####[facility] [address] [place], [address] WBC (Bld) [#/Vol] 7.5 10*3/uL Normal 4.4-11.0 [facility] Comment on above: Performed By: #### L 100.0100, L500.2500 ####[facility] [address] [place], [address] CPK Total, Creatine Kinaseon 03-14-2025 CPK TOTAL 26 U/L Normal 24-[address] [facility] Comment on above: Performed By: #### L 501.3620 ####[facility] [address] [place], [address] Consultation - Nephrologyon 03-14-2025 Consultation - Nephrology Normal [facility] Creatinine, Urineon 03-14-20 25 URINE CREAT 230.00 mg/dL High 28.00-217.[address] [facility] Comment on above: Performed By: #### L 502.0300 ####[facility] [address] [place], [address] Electrocardiogram reportOrde red By: Ramone Adams on 03-14-[address] [facility] Cardiovascular Services [address] [place] [address] 12 Lead EKG 03/14/25 0812 MR#: [id number] Acct: [id number] Name: MISAEL MEDINA Rep #:[id number] : 1950 74 From: Ramone Adams MD Attending Dr: Dr. Seth Garnica, Status: ADM IN Ordering Dr: Fitz Deleon DO Date: 03/13/25 Location: PCU Sex: F C Admitted: 03/13/25 Test Reason : Blood Pressure : */* mmHG Vent. Rate : 57 BPM Atrial Rate : * BPM P-R Int : * ms QRS Dur : 112 ms QT Int : 422 ms P-R-T Axes : * 24 139 degrees QTcB Int : 410 ms Junctional rhythm Low voltage QRS Incomplete left bundle branch block ST & T wave abnormality, consider lateral ischemia Abnormal ECG When compared with ECG of 13-Mar-2025 14:01, MANUAL COMPARISON REQUIRED DATA IS UNCONFIRMED Confirmed by RAMONE ADAMS MD ([id number]), desk editor MIRNA DRAKE ([id number]) on 03/14/2025 1:22:42 PM Referred By: WANDA Confirmed By: RAMONE ADAMS MD 03/14/25 1322 Date _ Ramone Adams MD CC: Dr. Seth Garnica DO; Dr. Donal Castle MD; Dr. Fitz Deleon DO ~ Signed [facility] Work Phone: EKG study [facility] Cardiovascular Services [address] [place] [address] 12 Lead EKG 03/14/25 1024 MR#: [id number] Acct: [id number] Name: MISAEL MEDINA Rep #:[id number] : 1950 74 From: Ramone Adams MD Attending Dr: Dr. Seth Garnica DO Status: ADM IN Ordering Dr: Seth Garnica DO Da te: 03/14/25 Location: [facility] Sex: F C Admitted: 03/13/25 Test Reason : Blood Pressure : */* mmHG Vent. Rate : 71 BPM Atrial Rate : 55 BPM P-R Int : * ms QRS Dur : 108 ms QT Int : 390 ms P-R-T Axes : * 25 130 degrees QTcB Int : 423 ms Normal sinus rhythm Low voltage QRS Incomplete left bundle branch block T wave abnormality, consider lateral ischemia Abnormal ECG No previous ECGs available Confirmed by RAMONE ADAMS MD ([id number]), desk editor MIRNA DRAKE ([id number]) on 03/14/2025 1:21:50 PM Referred By: WILDA Confirmed By: RAMONE ADAMS MD 03/14/25 132 Date _ Ramone Adams MD CC: Dr. Seth Garnica DO; Dr. Donal Castle MD ~ Signed [facility] Work Phone: Kidney and Bladderon 025 Kidney and Bladder Normal [facility] Osmolality, Urineon 03-14-20 25 OSMOLALITY,UR 353 mOsm/KG Normal [facility] Comment on above: Result Comment: Norm al Urine Reference Ranges Random: 50 - 1200 mOsm/kg H20 depending on fluid intake Random: >850 mOsm/kg after 12 hour fluid restriction 24 hour: 300 - 900 mOsm/kg H2O Performed By: #### L 500.9400, L501.7400 ####[facility] [address] [facility] [place], [place], [address] Serum or plasma creatine kin ase activityOrdered By: Lorraine Grande on 03-14-2025 CK [Catalytic activity/Vol] 26 U/L 24- [facility] Urea Nitrogen, Urineon 03-14 URINE UREA 374 mg/dL Normal NO RANGE EST. [facility] Comment on above: Performed By: #### L 502.0715 ####[facility] [address] [facility] [place], [place], [address] Urine creatinine measurement (mass/volume)Ordered By: Seth Garnica on 03-14-2025 Creatinine (U) [Mass/Vol] 230.00 mg/dL High 28.00-217.[address] [facility] Urine cultureOrdered By: Rose Deleon on 03-14-2025 Bacteria identified Cx Nom (U) Culture exhibits no growth. [facility] 12 Lead EKGon 03-13-2025 12 Lead [facility]KG [facility] [facility] 12 Lead EKG Normal [facility] Absolute neutrophil countOrd ered By: Fitz Deleon on 03-13-2025 Neutrophils (Bld) [#/Vol] 6.1 10*3/uL 2.0-7.[address] [facility] Anion gap in Serum or Plasma Ordered By: Fitz Deleon on 03-13-2025 Anion gap [Moles/Vol] 11 mmol/L - [facility] [place] BUN/creatinine ratioOrdered By: Fitz Deleon on 03-13-2025 Urea nitrogen/Creatinine [Mass ratio] 17.3 mg/mg 10- [facility] Basic Metabolic Profile (BMP )on 03-13-2025 BUN/CRE 17.3 RATIO Normal 10-[address] [facility] Comment on above: Performed By: #### L 503.7505, L100.0100, L500.2500 ####[facility] [address] [place], [address] Calcium [Mass/Vol] 8.5 mg/dL Normal 7.6-11.0 [facility] Comment on above: Performed By: #### L 503.7505, L100.0100, L500.2500 ####[facility] [address] [place], [address] Chloride [Moles/Vol] 114 mmol/L High 98-108 [facility] Comment on above: Performed By: #### L 503.7505, L100.0100, L500.2500 ####[facility] [address] [place], [address] CO2 [Moles/Vol] 16.6 mmol/L Low 21.0-32.[address] [facility] Comment on above: Performed By: #### L 503.7505, L100.0100, L500.2500 ####[facility] [address] [place], [address] Creatinine [Mass/Vol] 5.10 mg/dL High 0.70-1.20 [facility] [place] Comment on above: Performed By: #### L 503.7505, L100.0100, L500.2500 ####[facility] [address] [place], [address] ECRCL 11.41 ml/min Low 50-[address] [facility] Comment on above: Performed By: #### L 503.7505, L100.0100, L500.2500 ####[facility] [address] [place], [address] GAP 11 Normal 5-[address] [facility] Comment on above: Performed By: #### L 503.7505, L100.0100, L500.2500 ####[facility] [address] [place], [address] GFR/1.73 sq M.predicted among non-blacks MDRD (S/P/Bld) [Vol rate/Area] 8 mL/min/{1.73_m2} Low >[address] [facility] Comment on above: Result Comment: mL/m in/1.73m2 CKD-EPI Creatinine Equation (2020) Performed By: #### L 503.7505, L100.0100, L500.2500 ####[facility] [address] [place], [address] Glucose [Mass/Vol] 138 mg/dL High 70-99 [facility] Comment on above: Performed By: #### L 503.7505, L100.0100, L500.2500 ####[facility] [address] [place], [address] Potassium [Moles/Vol] 6.7 mmol/L Invalid Interpretation Code 3.3-5.[address] [facility] Comment on above: Result Comment: Crit ical Result(s) Called at: 1722 by: ZACHARY CHEN??Results read back by same. Performed By: #### L 503.7505, L100.0100, L500.2500 ####[facility] [address] [place], [address] Sodium [Moles/Vol] 141 mmol/L Normal 133-145 [facility] Comment on above: Performed By: #### L 503.7505, L100.0100, L500.2500 ####[facility] [address] [place], [address] Urea nitrogen [Mass/Vol] 88 mg/dL High 4-[address] [facility] Comment on above: Performed By: #### L 503.7505, L100.0100, L500.2500 ####[facility] [address] [place], [address] Basophil percentageOrdered B y: Fitz Shannonyaakov on 03-13-2025 Basophils/100 WBC (Bld) 0.3 % 0-1 [facility] Bedside Glucoseon 03-13-2025 FINGERSTICK GLU 234 mg/dL High 74-[address] [facility] Comment on above: Result Comment: RONNIE VELAZQUEZ OF PATIENT CARE PER NURSING PROTOCOL Performed By: #### L 501.080 ####[facility] [address] [place], [address] Bilirubin Test strip Ql (U)O rdered By: Fitzelsa Deleon on 03-13-2025 Bilirubin Ql (U) 1 mg/dL High Negative [facility] Comment on above: COLOR OF URINE MAY A FFECT DIPSTICK RESULTS. CBC W/Diff, Automatedon 02-14 Absolute Lymph 0.89 X10 3/uL Normal 0.83-4.[address] [facility] Comment on above: Performed By: #### L 503.7505, L100.0100, L500.2500 ####[facility] [address] [place], [address] Absolute Neut 6.1 X10 3/uL Normal 2.0-7.[address] [facility] Comment on above: Performed By: #### L 503.7505, L100.0100, L500.2500 ####[facility] [address] [place], [address] Basophils/100 WBC (Bld) 0.3 % Normal 0-1 [facility] Comment on above: Performed By: #### L 503.7505, L100.0100, L500.2500 ####[facility] [address] [place], [address] Eosinophils/100 WBC (Bld) 0.6 % Normal 0-[address] [facility] Comment on above: Performed By: #### L 503.7505, L100.0100, L500.2500 ####[facility] [address] [place], [address] Erythrocyte distribution width (RBC) [Ratio] 17.4 % High 11.6-14.[address] [facility] Comment on above: Performed By: #### L 503.7505, L100.0100, L500.2500 ####[facility] [address] [place], [address] Hematocrit (Bld) [Volume fraction] 38.7 % Normal 37-[address] [facility] Comment on above: Performed By: #### L 503.7505, L100.0100, L500.2500 ####[facility] [address] [place], [address] Hemoglobin (Bld) [Mass/Vol] 11.3 g/dL Low 12.0-15.[address] [facility] Comment on above: Performed By: #### L 503.7505, L100.0100, L500.2500 ####[facility] [address] [place], [address] IG% 0.600 Normal 0.0-0.[address] [facility] Comment on above: Result Comment: IG% - Immature Granulocytes (promyelocytes, myelocytes andmetamyelocytes) > 1% indicates that a LEFT SHIFT is Present. Performed By: #### L 503.7505, L100.0100, L500.2500 ####[facility] [address] [place], [address] Lymphocytes/100 WBC (Bld) 11.5 % Low 19-[address] [facility] Comment on above: Performed By: #### L 503.7505, L100.0100, L500.2500 ####[facility] [address] [place], [address] MCH (RBC) [Entitic mass] 26.1 pg Low 27.0-32.[address] [facility] Comment on above: Performed By: #### L 503.7505, L100.0100, L500.2500 ####[facility] [address] [place], [address] MCHC (RBC) [Mass/Vol] 29.2 g/dL Low 32-36 [facility] Comment on above: Performed By: #### L 503.7505, L100.0100, L500.2500 ####[facility] [address] [place], [address] MCV (RBC) [Entitic vol] 89.4 fL Normal 81-99 [facility] Comment on above: Performed By: #### L 503.7505, L100.0100, L500.2500 ####[facility] [address] [place], [address] Monocytes/100 WBC (Bld) 7.8 % Normal 0-10 [facility] Comment on above: Performed By: #### L 503.7505, L100.0100, L500.2500 ####[facility] [address] [place], [address] Neutrophils/100 WBC (Bld) 79.2 % High 47-[address] [facility] Comment on above: Performed By: #### L 503.7505, L100.0100, L500.2500 ####[facility] [address] [place], [address] Nucleated RBC (Bld) [#/Vol] 1.9 10*3/uL Normal 0-[address] [facility] Comment on above: Performed By: #### L 503.7505, L100.0100, L500.2500 ####[facility] [address] [place], [address] Platelet mean volume (Bld) [Entitic vol] 9.4 fL Normal 6.2-12.[address] [facility] Comment on above: Performed By: #### L 503.7505, L100.0100, L500.2500 ####[facility] [address] [place], [address] Platelets (Bld) [#/Vol] 241 10*3/uL Normal 150-[address] [facility] Comment on above: Performed By: #### L 503.7505, L100.0100, L500.2500 ####[facility] [address] [place], [address] RBC (Bld) [#/Vol] 4.33 10*6/uL Normal 4.2-5.4 [facility] Comment on above: Performed By: #### L 503.7505, L100.0100, L500.2500 ####[facility] [address] [place], [address] RDW SD 57.1 fl High 35.1-43.[address] [facility] Comment on above: Performed By: #### L 503.7505, L100.0100, L500.2500 ####[facility] [address] [place], [address] WBC (Bld) [#/Vol] 7.7 10*3/uL Normal 4.4-11.0 [facility] Comment on above: Performed By: #### L 503.7505, L100.0100, L500.2500 ####[facility] [address] [place], [address] Carbon dioxide, total [Moles /volume] in Central venous bloodOrdered By: Fitz Deleon on 03-13-2025 CO2 [Moles/Vol] 16.6 mmol/L Low 21.0-32.[address] [facility] Chest PA and Lateralon 03-13 Chest PA and Lateral Normal [facility] Chloride assayOrdered By: Priscila Deleon on 03-13-2025 Chloride [Moles/Vol] 114 mmol/L High 98-108 [facility] Emergency Department Summary on 03-13-2025 Emergency Department Summary Normal [facility] Eosinophil percentageOrdered By: Fitz Deleon on 03-13-2025 Eosinophils/100 WBC (Bld) 0.6 % 0-[address] [facility] Epithelial cells.squamous LM Ql (Urine sed)Ordered By: Fitz Deleon on 03-13-2025 Epithelial cells.squamous LM.HPF (Urine sed) [#/Area] 10 /[HPF] 5-[address] [facility] Erythrocyte distribution wid th (RBC) [Ratio]Ordered By: Fitz Deleon on 03-13-2025 Erythrocyte distribution width (RBC) [Entitic vol] 57.1 fL High 35.1-43.[address] [facility] Erythrocyte distribution wid th ratioOrdered By: Fitz Deleon on 03-13-2025 Erythrocyte distribution width (RBC) [Ratio] 17.4 % High 11.6-14.[address] [facility] Estimation of creatinine mp aranceOrdered By: Fitz Deleon on 03-13-2025 Estimated Creatinine Clearance Calc 11.41 ml/min Low 50-[address] [facility] GFR/1.73 sq M.predicted hiro g non-blacks MDRD (S/P/Bld) [Vol rate/Area]Ordered By: Fitz Deleon on 03-13-2025 Estimated GFR (MDRD) Non-Af Amer 8 Low >[address] [facility] Comment on above: mL/min/1.73m2 CKD-EP I Creatinine Equation (2020) Glucose Ql (U)Ordered By: Priscila Deleon on 03-13-2025 Urine Glucose (UA) Normal mg/dl Normal [facility] Glucose measurement at bedsi deOrdered By: Fitz Deleon on 03-13-2025 Bedside Glucose (Misc Panel) 234 mg/dL High 74-[address] [facility] Comment on above: MANAGEMENT OF PATIEN T CARE PER NURSING PROTOCOL H AND P Exam - Hospitaliston 03-13-2025 H&P Exam - Hospitalist Normal [facility] Hematocrit Auto (Bld) [Volum e fraction]Ordered By: Fitz Deleon on 03-13-2025 Hematocrit (Bld) [Volume fraction] 38.7 % 37-[address] [facility] Hemoglobin measurementOrdere d By: Fitz Deleon on 03-13-2025 Hemoglobin (Bld) [Mass/Vol] 11.3 g/dL Low 12.0-15.[address] [facility] Immature granulocytes/100 WB C Auto (Bld)Ordered By: Fitz Deleon on 03-13-2025 Immature granulocytes/100 WBC (Bld) 0.600 % 0.0-0.[address] [facility] Comment on above: IG% - Immature Granu locytes (promyelocytes, myelocytes and metamyelocytes) > 1% indicates that a LEFT SHIFT is Present. International normalized rat io (INR) calculationOrdered By: Fitz Deleon on 03-13-2025 INR Coag (Bld) [Relative time] 1.2 {INR} [facility] Ketones Test strip Ql (U)Ord ered By: Fitz Deleon on 03-13-2025 Ketones Ql (U) Negative Negative [facility] L499.0042on 03-13-2025 Trop T High Sen 159 ng/L Invalid Interpretation Code <=[address] [facility] Comment on above: Result Comment: Crit ical Result(s) Called at: 1812 by: ZACHARY PERERA??Results read back by same. Performed By: #### L 499.0042 ####[facility] [address] [facility] [place], [place], [id number] L499.0043on 03-13-2025 Trop T High Sen 160 ng/L Invalid Interpretation Code <=[address] [facility] Comment on above: Result Comment: Crit ical Result(s) Called at: 2214 by:??ZACHARY NORMAN Results read back by same. Performed By: #### L 499.0043 ####[facility] [address] [place], [place], [address] L501.4021on 03-13-2025 Trop T High Sen 159 ng/L Invalid Interpretation Code <=[address] [facility] Comment on above: Result Comment: Crit ical Result(s) Called at: 1749 by: ZACHARY RUTHERFORD??Results read back by same. Performed By: #### L 501.4021 ####[facility] [address] [place], [address] L503.7505on 03-13-2025 proBNP > [address] High <=[address] [facility] Comment on above: Result Comment: Hear t Failure Unlikely: < 300 pg/mLHeart Failure Likely< 50 Years: > 450 pg/mL50-75 Years: > 900 pg/mL>75 Years: > 1800 pg/mL Performed By: #### L 503.7505, L100.0100, L500.2500 ####[facility] [address] [place], [address] Laboratory - Microbiology an d Antimicrobial susceptibilityOrdered By: Lena Landon on 03-13-2025 HBV surface Ag Ql (S) Non-Reactive Nonreactive [facility] Comment on above: Reactive: Presumptiv e evidence of HBV. Repeatedly reactive samples must be confirmed using a neutralization test ([employer] HBsAg Confirmatory Test)Non-Reactive: HBsAg not detected; does not exclude the possibility of exposure to HBV Lymphocytes Auto (Unsp spec) [#/Vol]Ordered By: Fitz Deleon on 03-13-2025 Lymphocytes (Bld) [#/Vol] 0.89 10*3/uL 0.83-4.[address] [facility] Lymphocytes/100 WBC Auto (Un sp spec)Ordered By: Fitz Deleon on 03-13-2025 Lymphocytes/100 WBC (Bld) 11.5 % Low 19-[address] [facility] MCV (mean corpuscular volume ) determinationOrdered By: Fitz Deleon on 03-13-2025 MCV (RBC) [Entitic vol] 89.4 fL 81-99 [facility] Magnesiumon 03-13-2025 Magnesium [Mass/Vol] 2.6 mg/dL High 1.5-2.2 [facility] Comment on above: Performed By: #### L 501.2300, L501.5200 ####[facility] [address] [place], [address] Magnesium (Unsp spec) [Mass/ Vol]Ordered By: Fitz Deleon on 03-13-2025 Magnesium [Mass/Vol] 2.6 mg/dL High 1.5-2.2 [facility] Magnesium measurement (mass/ volume)Ordered By: Fitz Deleon on 03-13-2025 Magnesium (Unsp spec) [Mass/Vol] 2.6 mg/dL High 1.5-2.[address] [facility] Mean corpuscular hemoglobin (MCH) determinationOrdered By: Fitz Deleon on 03-13-2025 MCH (RBC) [Entitic mass] 26.1 pg Low 27.0-32.[address] [facility] Mean corpuscular hemoglobin concentration (MCHC) determinationOrdered By: Fitz Deleon on 03-13-2025 MCHC (RBC) [Mass/Vol] 29.2 g/dL Low 32-36 [facility] [place] Mean platelet volume determi nationOrdered By: Fitz Deleon on 03-13-2025 Platelet mean volume (Bld) [Entitic vol] 9.4 fL 6.2-12.[address] [facility] Microscopic analysis of urin e for red blood cells (RBC)Ordered By: Fitz Deleon on 03-13-2025 Microscopic analysis of urine for red blood cells (RBC) 5-10 SEEN /hpf 0-[address] [facility] Urine RBC 5-10 SEEN /hpf 0-[address] [facility] Monocyte percentageOrdered B y: Fitz Deleon on 03-13-2025 Monocytes/100 WBC (Bld) 7.8 % 0-10 [facility] Mucus LM Ql (Urine sed)Order ed By: Fitz Deleon on 03-13-2025 Mucus Ql (Urine sed) 0 SEEN /hpf [facility] [place] Natriuretic peptide.B prohor marlen N-Terminal [Mass/Vol]Ordered By: Fitz Deleon on 03-13-2025 LF-TejW-Yvfn Natriuretic Peptide II > 90902 pg/mL High <[address] [facility] Comment on above: Heart Failure Unlike ly: < 300 pg/mLHeart Failure Likely< 50 Years: > 450 pg/mL50-75 Years: > 900 pg/mL>75 Years: > 1800 pg/mL Natriuretic peptide.B prohor marlen N-Terminal [Mass/volume] in Serum or PlasmaOrdered By: Fitz Deleon on 03-13-2025 Natriuretic peptide.B prohormone N-Terminal [Mass/Vol] > 13615 pg/mL High <[address] [facility] Comment on above: Heart Failure Unlike ly: < 300 pg/mLHeart Failure Likely< 50 Years: > 450 pg/mL50-75 Years: > 900 pg/mL>75 Years: > 1800 pg/mL Neutrophil percentageOrdered By: Fitz Deleon on 03-13-2025 Neutrophils/100 WBC (Bld) 79.2 % High 47-[address] [facility] Nitrite Test strip Ql (U)Ord ered By: Fitz Deleon on 03-13-2025 Nitrite Ql (U) Negative Negative [facility] Nucleated red blood cell per centageOrdered By: Fitz Deleon on 03-13-2025 Nucleated RBC/100 WBC (Bld) [Ratio] 1.9 % 0-[address] [facility] Osmolality urOrdered By: Willie Muñoz on 03-13-2025 Osmolality (U) [Osmolality] 353 mOsm/KG >[address] [facility] Comment on above: Normal Urine Referen ce Ranges Random: 50 - 1200 mOsm/kg H20 depending on fluid intake Random: >850 mOsm/kg after 12 hour fluid restriction 24 hour: ~300 - 900 mOsm/kg H2O Osmolality, Serumon 03-13-20 25 OSMOLALITY,SER 330 mOsm/KG High 280-[address] [facility] Comment on above: Performed By: #### L 501.7300 ####[facility] [address] [place], [place], [id number] Partial Thromboplast Timeon 03-13-2025 aPTT Coag (Bld) [Time] 29.4 s Normal 24.1-36.2 [facility] Comment on above: Performed By: #### L 300.4310, L300.3900 ####[facility] [address] [place], [address] Phosphoruson 03-13-2025 Phosphate [Mass/Vol] 5.5 mg/dL High 2.7-4.5 [facility] Comment on above: Performed By: #### L 501.2300, L501.5200 ####[facility] [address] [place], [address] Platelet countOrdered By: Priscila Deleon on 03-13-2025 Platelets (Bld) [#/Vol] 241 10*3/uL 150-[address] [facility] Potassium (Unsp spec) [Mass/ Vol]Ordered By: Fitz Deleon on 03-13-2025 Potassium [Moles/Vol] 6.7 mmol/L High 3.3-5.1 [facility] Comment on above: Critical Result(s) C alled at: 1722 by: ZACHARY GARCIA TO CAYLA TENENT Results read back by same. Protein Test strip Ql (U)Ord ered By: Fitz Deleon on 03-13-2025 Protein Ql (U) 100 mg/dl High Negative [facility] Prothrombin Time w/INRon INR Coag (PPP) [Relative time] 1.2 {INR} Normal [facility] Comment on above: Performed By: #### L 300.4310, L300.3900 ####[facility] [address] [place], [address] PT Coag (PPP) [Time] 15.7 s High 11.7-14.9 [facility] Comment on above: Performed By: #### L 300.4310, L300.3900 ####[facility] [address] [place], [address] Prothrombin timeOrdered By: Fitz Deleon on 03-13-2025 PT Coag (PPP) [Time] 15.7 s High 11.7-14.9 [facility] RBC Auto (Bld) [#/Vol]Ordere d By: Fitz Deleon on 03-13-2025 RBC (Bld) [#/Vol] 4.33 10*6/uL 4.2-5.4 [facility] Serum creatinine measurement (mass/volume)Ordered By: Fitz Deleon on 03-13-2025 Creatinine [Mass/Vol] 5.10 mg/dL High 0.70-1.20 [facility] Serum glucose measurement (m ass/volume)Ordered By: Fitz Deleon on 03-13-2025 Glucose [Mass/Vol] 138 mg/dL High 70-99 [facility] Serum or plasma calcium ras urement (mass/volume)Ordered By: Fitz Deleon on 03-13-2025 Calcium [Mass/Vol] 8.5 mg/dL 7.6-11.0 [facility] Serum or plasma urea nitroge n measurement (mass/volume)Ordered By: Fitz Deleon on 03-13-2025 Urea nitrogen [Mass/Vol] 88 mg/dL High 4-[address] [facility] Serum phosphorus measurement Ordered By: Fitz Deleon on 03-13-2025 Phosphorus Level 5.5 mg/dL High 2.7-4.[address] [facility] Sodium levelOrdered By: Fitz Deleon on 03-13-2025 Sodium [Moles/Vol] 141 mmol/L 133-145 [facility] Squamous epithelial cells de tection in urine sediment by light microscopyOrdered By: Fitz Deleon on 03-13-2025 Epithelial cells.squamous LM Ql (Urine sed) 10-25 SEEN /hpf 5-[address] [facility] Transitional cells LM Ql (Ur ine sed)Ordered By: Fitz Deleon on 03-13-2025 Urine Transitional Epithelial Cells 0-5 SEEN /hpf 0-[address] [facility] Transitional cells detection in urine sediment by light microscopyOrdered By: Fitz Deleon on 03-13-2025 Transitional cells LM Ql (Urine sed) 0-5 SEEN /hpf 0-[address] [facility] Troponin T.cardiac High sens itivity method [Mass/Vol]Ordered By: Fitz Deleon on 03-13-2025 Troponin T High Sensitivity 2 Hour 159 ng/L High <[address] [facility] Comment on above: Critical Result(s) C alled at: 1812 by: ZACHARY PARSONS Results read back by same. Troponin T High Sensitivity 159 ng/L High <[address] [facility] Comment on above: Critical Result(s) C alled at: 1749 by: ZACHARY ECHEVERRIA Results read back by same. Troponin T.cardiac [Mass/vol ume] in Serum or Plasma by High sensitivity methodOrdered By: Fitz Deleon on 03-13-2025 Troponin T.cardiac High sensitivity method [Mass/Vol] 160 ng/L High <[address] [facility] Comment on above: Critical Result(s) C alled at: 2214 by: ZACHARY GARCIA TO KASSANDRA NORMAN Results read back by same. Troponin T.cardiac High sensitivity method [Mass/Vol] 159 ng/L High <[address] [facility] Comment on above: Critical Result(s) C alled at: 1812 by: ZACHARY GARCIA TO LORENZO PARSONS Results read back by same. Troponin T.cardiac High sensitivity method [Mass/Vol] 159 ng/L High <[address] [facility] Comment on above: Critical Result(s) C alled at: 1749 by: ZACHARY GARCIA TO AMAURY ECHEVERRIA Results read back by same. Urinalysis, Completeon 03-13 EPI,TRANSITION 0-5 SEEN Normal 0-[address] [facility] Comment on above: Order Comment: YINKA TER SPECIMEN Performed By: #### L 400.0001 ####[facility] [address] [place], [address] RBC 5-10 SEEN Normal 0-[address] [facility] Comment on above: Order Comment: YINKA TER SPECIMEN Performed By: #### L 400.0001 ####[facility] [address] [place], [address] EPI,SQUAMOUS 10-25 SEEN Normal 5-[address] [facility] Comment on above: Order Comment: YINKA TER SPECIMEN Performed By: #### L 400.0001 ####[facility] [address] [place], [address] WBC 50-100 SEEN Normal 0-[address] [facility] Comment on above: Order Comment: YINKA TER SPECIMEN Performed By: #### L 400.0001 ####[facility] [address] [place], [address] BACTERIA 4+ /hpf Normal None Seen [facility] Comment on above: Order Comment: YINKA TER SPECIMEN Performed By: #### L 400.0001 ####[facility] [facility] [address] [place], [address] Mucus Ql (Urine sed) 0 SEEN Normal [facility] Comment on above: Order Comment: [facility] TER SPECIMEN Performed By: #### L 400.0001 ####[facility] [address] [place], [address] Urine Electrolytes- Randomon 03-13-2025 Chloride,URINE 24 mmol/L Normal Not Establ. [facility] Comment on above: Performed By: #### L 500.9400, L501.7400 ####[facility] [address] [place], [address] UR K 20.8 mmol/L Normal Not Establ. [facility] Comment on above: Performed By: #### L 500.9400, L501.7400 ####[facility] [address] [place], [address] UR NA < 20 Normal Not Establ. [facility] Comment on above: Performed By: #### L 500.9400, L501.7400 ####[facility] [address] [place], [address] Urine blood detectionOrdered By: Fitz Deleon on 03-13-2025 Urine Occult Blood 150 /ul High Negative [facility] Urine clarityOrdered By: Rose Deleon on 03-13-2025 Clarity (U) Cloudy Clear [facility] Urine color determinationOrd ered By: Fitz Deleon on 03-13-2025 Color (U) Yellow Yellow [facility] Urine glucose detectionOrder ed By: Fitz Deleon on 03-13-2025 Glucose Ql (U) Normal mg/dl Normal [facility] Urine leukocyte esterase det ection by dipstickOrdered By: Fitz Deleon on 03-13-2025 Leukocyte esterase Test strip Ql (U) 500 /ul High Negative [facility] Urine pHOrdered By: Fitz martinez on 03-13-2025 pH (U) 5.0 [pH] 5.0 - 8.[address] [facility] Urine potassium measurement (moles/volume)Ordered By: Milton Muñoz on 03-13-2025 Potassium (U) [Moles/Vol] 20.8 mmol/L Not Establ. [facility] Urine sediment bacteria coun t by microscopy (number/high power field)Ordered By: Fitz Deleon on 03-13-2025 Bacteria LM.HPF (Urine sed) [#/Area] 4 /[HPF] None Seen [facility] Urine sodium measurement (mo les/volume)Ordered By: Milton Muñoz on 03-13-2025 Sodium (U) [Moles/Vol] mmol/L Not Establ. [facility] Urine specific gravity measu rementOrdered By: Fitz Deleon on 03-13-2025 Specific gravity (U) [Rel density] 1.025 1.002-1.[address] [facility] Urine urobilinogen measureme ntOrdered By: Fitz Deleon on 03-13-2025 Urobilinogen Ql (U) Normal mg/dl Normal [facility] Urobilinogen Ql (U)Ordered B y: Fitz Deleon on 03-13-2025 Urine Urobilinogen Normal mg/dl Normal [facility] White blood cell (WBC) count Ordered By: Fitz Deleon on 03-13-2025 WBC (Bld) [#/Vol] 7.7 10*3/uL 4.4-11.0 [facility] White blood cell countOrdere d By: Fitz Deleon on 03-13-2025 Urine WBC 50-100 SEEN /hpf 0-[address] [facility] White blood cell count 50-100 SEEN /hpf 0-[address] [facility] aPTT Coag (PPP) [Time]Ordere d By: Fitz Deleon on 03-13-2025 aPTT Coag (Bld) [Time] 29.4 s 24.1-36.2 [facility] Anion gap in Serum or Plasma Ordered By: Onofre Claros on 03-12-2025 Anion gap [Moles/Vol] 12 mmol/L 5-15 [facility] BUN/creatinine ratioOrdered By: Onofre Claros on 03-12-2025 Urea nitrogen/Creatinine [Mass ratio] 19.4 mg/mg 09-[address] [facility] Basic Metabolic Profile (BMP )on 03-12-2025 BUN/CRE 19.4 RATIO Normal 09-[address] [facility] Comment on above: Order Comment: [employer] AT 1940 NO ANSWER BACK Performed By: #### L 503.7505, L500.2500 ####[facility] [address] [place], [address] Calcium [Mass/Vol] 8.7 mg/dL Normal 7.6-11.0 [facility] Comment on above: Order Comment: [employer] FOR [employer] AT 1940 NO ANSWER BACK Performed By: #### L 503.7505, L500.2500 ####[facility] [address] [facility] [address] Chloride [Moles/Vol] 114 mmol/L High 98-108 [facility] Comment on above: Order Comment: [employer] FOR [employer] AT 1940 NO ANSWER BACK Performed By: #### L 503.7505, L500.2500 ####[facility] [address] [place], [address] CO2 [Moles/Vol] 16.8 mmol/L Low 21.0-32.[address] [facility] Comment on above: Order Comment: [employer] FOR [employer] AT 1940 NO ANSWER BACK Performed By: #### L 503.7505, L500.2500 ####[facility] [address] [place], [address] Creatinine [Mass/Vol] 4.48 mg/dL High 0.70-1.20 [facility] Comment on above: Order Comment: [employer] FOR [employer] GROUP AT 1940 NO ANSWER BACK Performed By: #### L 503.7505, L500.2500 ####[facility] [address] [place], [address] GAP 12 Normal 5-[address] [facility] Comment on above: Order Comment: [employer] FOR HEART GROUP AT 1940 NO ANSWER BACK Performed By: #### L 503.7505, L500.2500 ####[facility] [address] [place], [address] GFR/1.73 sq M.predicted among non-blacks MDRD (S/P/Bld) [Vol rate/Area] 10 mL/min/{1.73_m2} Low >[address] [facility] Comment on above: Order Comment: [employer] FOR [employer] GROUP AT 1940 NO ANSWER BACK Result Comment: mL/m in/1.73m2 CKD-EPI Creatinine Equation (2020) Performed By: #### L 503.7505, L500.2500 ####[facility] [address] [place], [address] Glucose [Mass/Vol] 115 mg/dL High 70-99 [facility] Comment on above: Order Comment: [employer] FOR [employer]ART GROUP AT 1940 NO ANSWER BACK Performed By: #### L 503.7505, L500.2500 ####[facility] [address] [place], [address] Potassium [Moles/Vol] 6.6 mmol/L Invalid Interpretation Code 3.3-5.[address] [facility] Comment on above: Order Comment: [employer] FOR HEART GROUP AT 1940 NO ANSWER BACK Result Comment: Crit ical Result(s) Called at: by:??Results read back bysame. Performed By: #### L 503.7505, L500.2500 ####[facility] [address] [place], [address] Sodium [Moles/Vol] 143 mmol/L Normal 133-145 [facility] Comment on above: Order Comment: [employer] EX[employer] FOR HEART GROUP AT 3A1940 NO ANSWER BACK Performed By: #### L 503.7505, L500.2500 ####[facility] [address] [place], [address] Urea nitrogen [Mass/Vol] 87 mg/dL High 4-[address] [facility] Comment on above: Order Comment: [employer] EX[employer] FOR HE[employer] GROUP AT 3A1940 NO ANSWER BACK Performed By: #### L 503.7505, L500.2500 ####[facility] [address] [place], [address] Carbon dioxide, total [Moles /volume] in Central venous bloodOrdered By: Onofre Claros on 03-12-2025 CO2 [Moles/Vol] 16.8 mmol/L Low 21.0-32.[address] [facility] Cardiology Visit Reporton Cardiology Visit Report Normal [facility] Chloride assayOrdered By: Angela Claros on 03-12-2025 Chloride [Moles/Vol] 114 mmol/L High 98-108 [facility] GFR/1.73 sq M.predicted hiro g non-blacks MDRD (S/P/Bld) [Vol rate/Area]Ordered By: Onofre Claros on 03-12-2025 Estimated GFR (MDRD) Non-Af Amer 10 Low >[address] [facility] Comment on above: mL/min/1.73m2 CKD-EP I Creatinine Equation (2020) Glomerular filtration rate ( GFR) estimation/1.73 sq m using serum, plasma, or whole bOrdered By: Onofre Claros on 03-12-2025 GFR/1.73 sq M.predicted among non-blacks MDRD (S/P/Bld) [Vol rate/Area] 10 mL/min/{1.73_m2} Low >[address] [facility] Comment on above: mL/min/1.73m2 CKD-EP I Creatinine Equation (2020) L503.7505on 03-12-2025 proBNP > [address]71 High <=[address] [facility] Comment on above: Result Comment: Hear t Failure Unlikely: < 300 pg/mLHeart Failure Likely< 50 Years: > 450 pg/mL50-75 Years: > 900 pg/mL>75 Years: > 1800 pg/mL Performed By: #### L 503.7505, L500.2500 ####[facility] [address] [place], [address] Natriuretic peptide.B prohor marlen N-Terminal [Mass/Vol]Ordered By: Onofre Claros on 03-12-2025 [id number] Natriuretic Peptide II > 03806 pg/mL High <[address] [facility] Comment on above: Heart Failure Unlike ly: < 300 pg/mLHeart Failure Likely< 50 Years: > 450 pg/mL50-75 Years: > 900 pg/mL>75 Years: > 1800 pg/mL Natriuretic peptide.B prohor marlen N-Terminal [Mass/volume] in Serum or PlasmaOrdered By: Onofre Claros on 03-12-2025 Natriuretic peptide.B prohormone N-Terminal [Mass/Vol] > 52238 pg/mL High <[address] [facility] Comment on above: Heart Failure Unlike ly: < 300 pg/mLHeart Failure Likely< 50 Years: > 450 pg/mL50-75 Years: > 900 pg/mL>75 Years: > 1800 pg/mL Potassium (Unsp spec) [Mass/ Vol]Ordered By: Onofre Claros on 03-12-2025 Potassium [Moles/Vol] 6.6 mmol/L High 3.3-5.1 [facility] Comment on above: Critical Result(s) C alled at: by: Results read back by same. Potassium measurement (mass/ volume)Ordered By: Onofre Claros on 03-12-2025 Potassium (Unsp spec) [Mass/Vol] 6.6 mmol/L High 3.3-5.[address] [facility] Comment on above: Critical Result(s) C alled at: by: Results read back by same. Serum creatinine measurement (mass/volume)Ordered By: Onofre Claros on 03-12-2025 Creatinine [Mass/Vol] 4.48 mg/dL High 0.70-1.20 [facility] Serum glucose measurement (m ass/volume)Ordered By: Onofre Claros on 03-12-2025 Glucose [Mass/Vol] 115 mg/dL High 70-99 [facility] Serum or plasma calcium ras urement (mass/volume)Ordered By: Onofre Claros on 03-12-2025 Calcium [Mass/Vol] 8.7 mg/dL 7.6-11.0 [facility] Serum or plasma urea nitroge n measurement (mass/volume)Ordered By: Onofre Claros on 03-12-2025 Urea nitrogen [Mass/Vol] 87 mg/dL High 4-[address] [facility] Sodium levelOrdered By: Nima Claros on 03-12-2025 Sodium [Moles/Vol] 143 mmol/L 133-145 [facility] AVASTIN (BEVACIZUMAB) 1.25MG INTRAVITREAL INJECTION OD (RIGHT EYE)on 02-15-2025 [facility] OCT ANGIOGRAPHY OU (BOTH EYE S)on 02-15-2025 [facility] Radiology Study observation (narrative) [facility] OCT MACULA CIRRUS OU (BOTH E YES)on 02-15-2025 [facility] Radiology Study observation (narrative) [facility] Absolute lymphocyte countOrd ered By: Donal Castle on 01-11-2025 Lymphocytes Auto (Unsp spec) [#/Vol] 2.08 10*3/uL 0.83-4.[address] [facility] Absolute neutrophil countOrd ered By: Donal Castle on 01-11-2025 Neutrophils (Bld) [#/Vol] 5.1 10*3/uL 2.0-7.[address] [facility] Automated lymphocyte count a s percentage of total leukocytesOrdered By: Donal Castle on 01-11-2025 Lymphocytes/100 WBC Auto (Unsp spec) 26.0 % 19-[address] [facility] BUN/creatinine ratioOrdered By: Donal Castle on 01-11-2025 Urea nitrogen/Creatinine [Mass ratio] 20.5 mg/mg High 10-[address] [facility] Basic Metabolic Profile (BMP )on 01-11-2025 Anion gap [Moles/Vol] 16 mmol/L High 5-15 [facility] Comment on above: Order Comment: Order Date: 01/09/25Order Info: 06- - BMP Performed By: #### L 500.2500, L100.0100 ####[facility] [address] [place], [address] BUN/CRE 20.5 RATIO High 10-[address] [facility] Comment on above: Order Comment: Order Date: 01/09/25Order Info: 666- - BMP Performed By: #### L 500.2500, L100.0100 ####[facility] [address] [place], [address] Calcium [Mass/Vol] 9.7 mg/dL Normal 7.6-11.0 [facility] Comment on above: Order Comment: Order Date: 01/09/25Order Info: 06- - BMP Performed By: #### L 500.2500, L100.0100 ####[facility] [address] [place], [address] Chloride [Moles/Vol] 106 mmol/L Normal 96-108 [facility] Comment on above: Order Comment: Order Date: 01/09/25Order Info: 06- - BMP Performed By: #### L 500.2500, L100.0100 ####[facility] [address] [place], [address] CO2 [Moles/Vol] 20.6 mmol/L Low 22.0-29.[address] [facility] Comment on above: Order Comment: Order Date: 01/09/25Order Info: 06- - BMP Performed By: #### L 500.2500, L100.0100 ####[facility] [address] [place], [address] Creatinine [Mass/Vol] 1.7 mg/dL High 0.6-1.0 [facility] Comment on above: Order Comment: Order Date: 01/09/25Order Info: 0667- - BMP Performed By: #### L 500.2500, L100.0100 ####[facility] [address] [place], [address] GFR/1.73 sq M.predicted among non-blacks MDRD (S/P/Bld) [Vol rate/Area] 30 mL/min/{1.73_m2} Low >[address] [facility] Comment on above: Order Comment: Order Date: 01/09/25Order Info: 0667- - BMP Result Comment: mL/m in/1.73m2 CKD-EPI Creatinine Equation (2020) Performed By: #### L 500.2500, L100.0100 ####[facility] [address] [place], [address] Glucose [Mass/Vol] 142 mg/dL High 70-99 [facility] Comment on above: Order Comment: Order Date: 01/09/25Order Info: 0667 - BMP Performed By: #### L 500.2500, L100.0100 ####[facility] [address] [place], [address] Potassium [Moles/Vol] 4.6 mmol/L Normal 3.3-5.1 [facility] Comment on above: Order Comment: Order Date: 01/09/25Order Info: 0667 - BMP Performed By: #### L 500.2500, L100.0100 ####[facility] [address] [place], [address] Sodium [Moles/Vol] 142 mmol/L Normal 133-145 [facility] Comment on above: Order Comment: Order Date: 01/09/25Order Info: 0667- - BMP Performed By: #### L 500.2500, L100.0100 ####[facility] [address] [place], [address] Urea nitrogen [Mass/Vol] 36 mg/dL High 4-[address] [facility] Comment on above: Order Comment: Order Date: 01/09/25Order Info: 0667-1 - BMP Performed By: #### L 500.2500, L100.0100 ####[facility] [address] [place], [address] Basophil percentageOrdered B y: Chalon Suman on 01-11-2025 Basophils/100 WBC (Bld) 0.6 % 0-1 [facility] CBC W/Diff, Automatedon 12-17 Absolute Lymph 2.08 X10 3/uL Normal 0.83-4.[address] [facility] Comment on above: Order Comment: Order Date: 01/09/25Order Info: 0184-1 - CBCD Performed By: #### L 500.2500, L100.0100 ####[facility] [address] [place], [address] Absolute Neut 5.1 X10 3/uL Normal 2.0-7.[address] [facility] Comment on above: Order Comment: Order Date: 01/09/25Order Info: 0184-1 - CBCD Performed By: #### L 500.2500, L100.0100 ####[facility] [address] [place], [address] Basophils/100 WBC (Bld) 0.6 % Normal 0-1 [facility] Comment on above: Order Comment: Order Date: 01/09/25Order Info: 0184-1 - CBCD Performed By: #### L 500.2500, L100.0100 ####[facility] [address] [place], [address] Eosinophils/100 WBC (Bld) 2.3 % Normal 0-[address] [facility] Comment on above: Order Comment: Order Date: 01/09/25Order Info: 0184-1 - CBCD Performed By: #### L 500.2500, L100.0100 ####[facility] [address] [place], [address] Erythrocyte distribution width (RBC) [Ratio] 15.9 % High 11.6-14.[address] [facility] Comment on above: Order Comment: Order Date: 01/09/25Order Info: 0184-1 - CBCD Performed By: #### L 500.2500, L100.0100 ####[facility] [address] [place], [address] Hematocrit (Bld) [Volume fraction] 37.6 % Normal 37-[address] [facility] Comment on above: Order Comment: Order Date: 01/09/25Order Info: 018- - CBCD Performed By: #### L 500.2500, L100.0100 ####[facility] [address] [place], [address] Hemoglobin (Bld) [Mass/Vol] 11.4 g/dL Low 12.0-15.[address] [facility] Comment on above: Order Comment: Order Date: 01/09/25Order Info: 018-1 - CBCD Performed By: #### L 500.2500, L100.0100 ####[facility] [address] [place], [address] IG% 0.400 Normal 0.0-0.[address] [facility] Comment on above: Order Comment: Order Date: 01/09/25Order Info: 0184-1 - CBCD Result Comment: IG% - Immature Granulocytes (promyelocytes, myelocytes andmetamyelocytes) > 1% indicates that a LEFT SHIFT is Present. Performed By: #### L 500.2500, L100.0100 ####[facility] [address] [place], [address] Lymphocytes/100 WBC (Bld) 26.0 % Normal 19-[address] [facility] Comment on above: Order Comment: Order Date: 01/09/25Order Info: 0184-1 - CBCD Performed By: #### L 500.2500, L100.0100 ####[facility] [address] [place], [address] MCH (RBC) [Entitic mass] 27.9 pg Normal 27.0-32.[address] [facility] Comment on above: Order Comment: Order Date: 01/09/25Order Info: 0184-1 - CBCD Performed By: #### L 500.2500, L100.0100 ####[facility] [address] [place], [address] MCHC (RBC) [Mass/Vol] 30.3 g/dL Low 32-36 [facility] Comment on above: Order Comment: Order Date: 01/09/25Order Info: 0184-1 - CBCD Performed By: #### L 500.2500, L100.0100 ####[facility] [address] [place], [address] MCV (RBC) [Entitic vol] 92.2 fL Normal 81-99 [facility] Comment on above: Order Comment: Order Date: 01/09/25Order Info: 0184-1 - CBCD Performed By: #### L 500.2500, L100.0100 ####[facility] [address] [place], [address] Monocytes/100 WBC (Bld) 6.9 % Normal 0-10 [facility] Comment on above: Order Comment: Order Date: 01/09/25Order Info: 0184-1 - CBCD Performed By: #### L 500.2500, L100.0100 ####[facility] [address] [place], [address] Neutrophils/100 WBC (Bld) 63.8 % Normal 47-[address] [facility] Comment on above: Order Comment: Order Date: 01/09/25Order Info: 0184-1 - CBCD Performed By: #### L 500.2500, L100.0100 ####[facility] [address] [place], [address] Nucleated RBC (Bld) [#/Vol] 0 10*3/uL Normal 0-[address] [facility] Comment on above: Order Comment: Order Date: 01/09/25Order Info: 0184-1 - CBCD Performed By: #### L 500.2500, L100.0100 ####[facility] [address] [place], [address] Platelet mean volume (Bld) [Entitic vol] 10.1 fL Normal 6.2-12.[address] [facility] Comment on above: Order Comment: Order Date: 01/09/25Order Info: 0184-1 - CBCD Performed By: #### L 500.2500, L100.0100 ####[facility] [address] [place], [address] Platelets (Bld) [#/Vol] 314 10*3/uL Normal 150-[address] [facility] Comment on above: Order Comment: Order Date: 01/09/25Order Info: 0184- - CBCD Performed By: #### L 500.2500, L100.0100 ####[facility] [address] [place], [address] RBC (Bld) [#/Vol] 4.08 10*6/uL Low 4.2-5.4 [facility] Comment on above: Order Comment: Order Date: 01/09/25Order Info: 0184-1 - CBCD Performed By: #### L 500.2500, L100.0100 ####[facility] [address] [place], [address] RDW SD 53.0 fl High 35.1-43.[address] [facility] Comment on above: Order Comment: Order Date: 01/09/25Order Info: 0184-1 - CBCD Performed By: #### L 500.2500, L100.0100 ####[facility] [address] [place], [address] WBC (Bld) [#/Vol] 8.0 10*3/uL Normal 4.4-11.0 [facility] Comment on above: Order Comment: Order Date: 01/09/25Order Info: 0184-1 - CBCD Performed By: #### L 500.2500, L100.0100 ####[facility] [address] [place], [place], [id number] Carbon dioxide measurementOr dered By: Donal Castle on 01-11-2025 CO2 [Moles/Vol] 20.6 mmol/L Low 22.0-29.[address] [facility] Chloride measurementOrdered By: Donal Castle on 01-11-2025 Chloride [Moles/Vol] 106 mmol/L 96-108 [facility] Creatinine [Moles/Vol]Ordere d By: Donal Castle on 01-11-2025 Creatinine [Mass/Vol] 1.7 mg/dL High 0.6-1.0 [facility] Eosinophil percentageOrdered By: Donal Castle on 01-11-2025 Eosinophils/100 WBC (Bld) 2.3 % 0-[address] [facility] Erythrocyte distribution wid th ratioOrdered By: Donal Castle on 01-11-2025 Erythrocyte distribution width (RBC) [Ratio] 15.9 % High 11.6-14.[address] [facility] Erythrocyte distribution wid th standard deviationOrdered By: Donal Castle on 01-11-2025 Erythrocyte distribution width (RBC) [Entitic vol] 53.0 fL High 35.1-43.[address] [facility] Erythrocyte distribution width (RBC) [Ratio] 53.0 fl High 35.1-43.[address] [facility] GFR/1.73 sq M.predicted hiro g non-blacks MDRD (S/P/Bld) [Vol rate/Area]Ordered By: Donal Castle on 01-11-2025 Estimated GFR (MDRD) Non-Af Amer 30 Low >[address] [facility] Comment on above: mL/min/1.73m2 CKD-EP I Creatinine Equation (2020) Glomerular filtration rate ( GFR) estimation/1.73 sq m using serum, plasma, or whole bOrdered By: Donal Castle on 01-11-2025 GFR/1.73 sq M.predicted among non-blacks MDRD (S/P/Bld) [Vol rate/Area] 30 mL/min/{1.73_m2} Low >[address] [facility] Comment on above: mL/min/1.73m2 CKD-EP I Creatinine Equation (2020) Hematocrit Auto (Bld) [Volum e fraction]Ordered By: Donal Castle on 01-11-2025 Hematocrit (Bld) [Volume fraction] 37.6 % 37-[address] [facility] Hemoglobin measurementOrdere d By: Donal Castle on 01-11-2025 Hemoglobin (Bld) [Mass/Vol] 11.4 g/dL Low 12.0-15.[address] [facility] Immature granulocytes/100 WB C Auto (Bld)Ordered By: Donal Castle on 01-11-2025 Immature granulocytes/100 WBC (Bld) 0.400 % 0.0-0.[address] [facility] Comment on above: IG% - Immature Granu locytes (promyelocytes, myelocytes and metamyelocytes) > 1% indicates that a LEFT SHIFT is Present. Lymphocytes Auto (Unsp spec) [#/Vol]Ordered By: Donal Castle on 01-11-2025 Lymphocytes (Bld) [#/Vol] 2.08 10*3/uL 0.83-4.[address] [facility] Lymphocytes/100 WBC Auto (Un sp spec)Ordered By: Donal Castle on 01-11-2025 Lymphocytes/100 WBC (Bld) 26.0 % 19-[address] [facility] MCV (mean corpuscular volume ) determinationOrdered By: Donal Castle on 01-11-2025 MCV (RBC) [Entitic vol] 92.2 fL 81-99 [facility] Mean corpuscular hemoglobin (MCH) determinationOrdered By: Donal Castle on 01-11-2025 MCH (RBC) [Entitic mass] 27.9 pg 27.0-32.[address] [facility] Mean corpuscular hemoglobin concentration (MCHC) determinationOrdered By: Donal Castle on 01-11-2025 MCHC (RBC) [Mass/Vol] 30.3 g/dL Low 32-36 [facility] [place] Mean platelet volume determi nationOrdered By: Donal Castle on 01-11-2025 Platelet mean volume (Bld) [Entitic vol] 10.1 fL 6.2-12.[address] [facility] Monocyte percentageOrdered B y: Donal Castle on 01-11-2025 Monocytes/100 WBC (Bld) 6.9 % 0-10 [facility] Neutrophil percentageOrdered By: Donal Castle on 01-11-2025 Neutrophils/100 WBC (Bld) 63.8 % 47-[address] [facility] Nucleated red blood cell per centageOrdered By: Donal Castle on 01-11-2025 Nucleated RBC/100 WBC (Bld) [Ratio] 0 % 0-[address] [facility] Platelet countOrdered By: Sabino Castle on 01-11-2025 Platelets (Bld) [#/Vol] 314 10*3/uL 150-[address] [facility] RBC Auto (Bld) [#/Vol]Ordere d By: Donal Castle on 01-11-2025 RBC (Bld) [#/Vol] 4.08 10*6/uL Low 4.2-5.4 [facility] Serum glucose measurement (m ass/volume)Ordered By: Donal Castle on 01-11-2025 Glucose [Mass/Vol] 142 mg/dL High 70-99 [facility] Serum or plasma anion gap de termination (moles/volume)Ordered By: Donal Castle on 01-11-2025 Anion gap [Moles/Vol] 16 mmol/L High 5-15 [facility] [place] Serum or plasma calcium ras urement (mass/volume)Ordered By: Donal Castle on 01-11-2025 Calcium [Mass/Vol] 9.7 mg/dL 7.6-11.0 [facility] Serum or plasma creatinine m easurement (moles/volume)Ordered By: Donal Castle on 01-11-2025 Creatinine [Moles/Vol] 1.7 mg/dL High 0.6-1.0 [facility] Serum or plasma potassium me asurementOrdered By: Donal Castle on 01-11-2025 Potassium [Moles/Vol] 4.6 mmol/L 3.3-5.1 [facility] Serum or plasma sodium measu rement (moles/volume)Ordered By: Alkazachariah Castle on 01-11-2025 Sodium [Moles/Vol] 142 mmol/L 133-145 [facility] Serum or plasma urea nitroge n measurement (mass/volume)Ordered By: Donal Castle on 01-11-2025 Urea nitrogen [Mass/Vol] 36 mg/dL High 4-[address] [facility] White blood cell (WBC) count Ordered By: Alkazachariah Castle on 01-11-2025 WBC (Bld) [#/Vol] 8.0 10*3/uL 4.4-11.0 [facility] Echo Limited w/Contraston Echo Limited w/Contrast Normal [facility] Basic Metabolic Profile (BMP )on 12-08-2024 BUN/CRE 20.4 RATIO High 10-[address] [facility] Comment on above: Performed By: #### L 500.2500 ####[facility] [address] [place], [address] CA,Total 9.0 mg/dL Normal 8.5-10.[address] [facility] Comment on above: Performed By: #### L 500.2500 ####[facility] [address] [place], [address] Chloride [Moles/Vol] 113 mmol/L High 98-107 [facility] Comment on above: Performed By: #### L 500.2500 ####[facility] [address] [place], [address] CO2 [Moles/Vol] 24.0 mmol/L Normal 21.0-32.[address] [facility] Comment on above: Performed By: #### L 500.2500 ####[facility] [address] [place], [address] Creatinine [Mass/Vol] 1.67 mg/dL High 0.55-1.02 [facility] Comment on above: Result Comment: The validity of the calculated GFR GFRAA in patients over70 years has not been determined. Clinical correlation isessential. Performed By: #### L 500.2500 ####[facility] [address] [place], [address] EST GFR - AA 39 mL/min Low >[address] [facility] Comment on above: Result Comment: Afri can Algerian GFR Calc Performed By: #### L 500.2500 ####[facility] [address] [place], [address] GAP 5 Normal 5-[address] [facility] Comment on above: Performed By: #### L 500.2500 ####[facility] [address] [place], [address] GFR/1.73 sq M.predicted among non-blacks MDRD (S/P/Bld) [Vol rate/Area] 32 mL/min/{1.73_m2} Low >[address] [facility] Comment on above: Result Comment: Non- GFR Calc Performed By: #### L 500.2500 ####[facility] [address] [place], [address] Glucose [Mass/Vol] 110 mg/dL High 74-106 [facility] Comment on above: Result Comment: Fast ing Glucose result from 100 to 125 mg/dLsuggests IMPAIRED HOMEOSTASIS per A.D.A. criteria. Performed By: #### L 500.2500 ####[facility] [address] [place], [address] Potassium [Moles/Vol] 5.0 mmol/L Normal 3.5-5.1 [facility] Comment on above: Performed By: #### L 500.2500 ####[facility] [address] [place], [address] Sodium [Moles/Vol] 142 mmol/L Normal 136-145 [facility] Comment on above: Performed By: #### L 500.2500 ####[facility] [address] [place], [address] Urea nitrogen [Mass/Vol] 34 mg/dL High 7-[address] [facility] Comment on above: Performed By: #### L 500.2649 ####[facility] [address] [place], [address] Blood urea nitrogen (BUN)/cr eatinine ratioOrdered By: Joao Ramirez on 12-08-2024 Urea nitrogen/Creatinine [Mass ratio] 20.4 mg/mg High 10-[address] [facility] Carbon dioxide measurementOr dered By: Joao Ramirez on 12-08-2024 CO2 [Moles/Vol] 24.0 mmol/L 21.0-32.[address] [facility] Chloride measurementOrdered By: Joao Ramirez on 12-08-2024 Chloride [Moles/Vol] 113 mmol/L High 98-107 [facility] Estimated glomerular filtrat ion rate (GFR) AmericanOrdered By: Joao Ramirez on 12-08-2024 Estimated GFR (MDRD) Amer 39 mL/min Low >[address] [facility] Comment on above: GFR Calc Glomerular filtration rate ( GFR) estimationOrdered By: Joao Ramirez on 12-08-2024 Estimated GFR (MDRD) Non-Af Amer 32 mL/min Low >[address] [facility] Comment on above: Non- GFR Calc GFR/1.73 sq M.predicted among non-blacks MDRD (S/P/Bld) [Vol rate/Area] 32 mL/min/{1.73_m2} Low >[address] [facility] Comment on above: Non- GFR Calc Glucose measurementOrdered B y: Joao Ramirez on 12-08-2024 Glucose [Mass/Vol] 110 mg/dL High 74-106 [facility] Comment on above: Fasting Glucose resu lt from 100 to 125 mg/dL suggests IMPAIRED HOMEOSTASIS per A.D.A. criteria. Potassium measurementOrdered By: Joao Ramirez on 12-08-2024 Potassium [Moles/Vol] 5.0 mmol/L 3.5-5.1 [facility] [place] Serum anion gap measurementO rdered By: Joao Ramirez on 12-08-2024 Anion gap [Moles/Vol] 5 mmol/L 5-15 [facility] Serum or plasma calcium ras urement (mass/volume)Ordered By: Joao Ramirez on 12-08-2024 Calcium [Mass/Vol] 9.0 mg/dL 8.5-10.1 [facility] Serum or plasma creatinine m easurement (mass/volume)Ordered By: Joao Ramirez on 12-08-2024 Creatinine [Mass/Vol] 1.67 mg/dL High 0.55-1.02 [facility] Comment on above: The validity of the calculated GFR & GFRAA in patients over 70 years has not been determined. Clinical correlation is essential. Serum or plasma urea nitroge n measurement (mass/volume)Ordered By: Joao Ramirez on 12-08-2024 Urea nitrogen [Mass/Vol] 34 mg/dL High 7-[address] [facility] Sodium levelOrdered By: Buddy Ramirez on 12-08-2024 Sodium [Moles/Vol] 142 mmol/L 136-145 [facility] Albumin to globulin ratioOrd ered By: Joao Ramirez on 12-01-2024 Albumin/Globulin [Mass ratio] 0.7 {ratio} Low 0.9-2.[address] [facility] BNP (brain natriuretic pepti de measurement)Ordered By: Joao Ramirez on 12-01-2024 Natriuretic peptide B (Bld) [Mass/Vol] 1039.1 pg/mL High 0-[address] [facility] BNP,B-Type NATRIURETIC PEPTI Ting 12-01-2024 Natriuretic peptide B (Bld) [Mass/Vol] 1039.1 pg/mL High 0-[address] [facility] Comment on above: Performed By: #### L 100.0500, L500.4050, L503.6620 ####[facility] [address] [place], [address] Bilirubin, totalOrdered By: Joao Ramirez on 12-01-2024 Bilirubin [Mass/Vol] 0.40 mg/dL 0.20-1.00 [facility] Comment on above: For patients on eltr ombopag therapy, use of Dimension [place] TBIL is not recommended. Blood urea nitrogen (BUN)/cr eatinine ratioOrdered By: Joao Ramirez on 12-01-2024 Urea nitrogen/Creatinine [Mass ratio] 18.5 mg/mg 10-[address] [facility] CBC-Complete Blood Cnt No Di asher 12-01-2024 Erythrocyte distribution width (RBC) [Ratio] 15.9 % High 11.6-14.[address] [facility] Comment on above: Performed By: #### L 100.0500, L500.4050, L503.6620 ####[facility] [address] [place], [address] Hematocrit (Bld) [Volume fraction] 34.7 % Low 37-[address] [facility] Comment on above: Performed By: #### L 100.0500, L500.4050, [id number] ####[facility] [address] [place], [address] Hemoglobin (Bld) [Mass/Vol] 10.5 g/dL Low 12.0-15.[address] [facility] Comment on above: Performed By: #### L 100.0500, L500.4050, [id number] ####[facility] [address] [place], [address] MCH (RBC) [Entitic mass] 28.3 pg Normal 27.0-32.[address] [facility] Comment on above: Performed By: #### L 100.0500, L500.4050, [id number] ####[facility] [address] [place], [address] MCHC (RBC) [Mass/Vol] 30.3 g/dL Low 32-36 [facility] Comment on above: Performed By: #### L 100.0500, L500.4050, [id number] ####[facility] [address] [place], [address] MCV (RBC) [Entitic vol] 93.5 fL Normal 81-99 [facility] Comment on above: Performed By: #### L 100.0500, L500.4050, [id number] ####[facility] [address] [place], [address] Platelet mean volume (Bld) [Entitic vol] 8.6 fL Normal 6.2-12.[address] [facility] Comment on above: Performed By: #### L 100.0500, L500.4050, [id number] ####[facility] [address] [place], [address] Platelets (Bld) [#/Vol] 394 10*3/uL Normal 150-[address] [facility] Comment on above: Performed By: #### L 100.0500, L500.4050, [id number] ####[facility] [address] [place], [address] RBC (Bld) [#/Vol] 3.71 10*6/uL Low 4.2-5.4 [facility] Comment on above: Performed By: #### L 100.0500, L500.4050, [id number] ####[facility] [address] [place], [address] RDW SD 54.7 fl High 35.1-43.[address] [facility] Comment on above: Performed By: #### L 100.0500, L500.4050, [id number] ####[facility] [address] [place], [address] WBC (Bld) [#/Vol] 10.8 10*3/uL Normal 4.4-11.0 [facility] Comment on above: Performed By: #### L 100.0500, L500.4050, [id number] ####[facility] [address] [place], [address] Carbon dioxide measurementOr dered By: Joao Ramirez on 12-01-2024 CO2 [Moles/Vol] 21.0 mmol/L 21.0-32.[address] [facility] Cardiology Visit Reporton Cardiology Visit Report Normal [facility] Chloride measurementOrdered By: Joao Ramirez on 12-01-2024 Chloride [Moles/Vol] 116 mmol/L High 98-107 [facility] Comprehensive Metabolic Prof ilon 12-01-2024 Albumin [Mass/Vol] 2.6 g/dL Low 3.2-5.0 [facility] Comment on above: Performed By: #### L 100.0500, L500.4050, [id number] ####[facility] [address] [place], [address] Albumin/Globulin [Mass ratio] 0.7 {ratio} Low 0.9-2.[address] [facility] Comment on above: Performed By: #### L 100.0500, L500.4050, [id number] ####[facility] [address] [place], [address] ALK P 94 U/L Normal 45-[address] [facility] Comment on above: Performed By: #### L 100.0500, L500.4050, [id number] ####[facility] [address] [place], [address] ALT [Catalytic activity/Vol] 10 U/L Low 13-[address] [facility] Comment on above: Performed By: #### L 100.0500, L500.4050, [id number] ####[facility] [address] [place], [address] AST [Catalytic activity/Vol] 15 U/L Normal 15-[address] [facility] Comment on above: Performed By: #### L 100.0500, L500.4050, [id number] ####[facility] [address] [place], [address] Bilirubin [Mass/Vol] 0.40 mg/dL Normal 0.20-1.00 [facility] Comment on above: Result Comment: For patients on eltrombopag therapy, use of Dimension [place] TBIL is not recommended. Performed By: #### L 100.0500, L500.4050, [id number] ####[facility] [address] [place], [address] BUN/CRE 18.5 RATIO Normal 10-[address] [facility] Comment on above: Performed By: #### L 100.0500, L500.4050, [id number] ####[facility] [address] [place], [address] CA,Total 9.1 mg/dL Normal 8.5-10.[address] [facility] Comment on above: Performed By: #### L 100.0500, L500.4050, [id number] ####[facility] [address] [place], [address] Chloride [Moles/Vol] 116 mmol/L High 98-107 [facility] Comment on above: Performed By: #### L 100.0500, L500.4050, [id number] ####[facility] [address] [place], [address] CO2 [Moles/Vol] 21.0 mmol/L Normal 21.0-32.[address] [facility] Comment on above: Performed By: #### L 100.0500, L500.4050, [id number] ####[facility] [address] [place], [address] Creatinine [Mass/Vol] 1.73 mg/dL High 0.55-1.02 [facility] Comment on above: Result Comment: The validity of the calculated GFR GFRAA in patients over70 years has not been determined. Clinical correlation isessential. Performed By: #### L 100.0500, L500.4050, [id number] ####[facility] [address] [place], [address] EST GFR - AA 37 mL/min Low >[address] [facility] Comment on above: Result Comment: Afri can Algerian GFR Calc Performed By: #### L 100.0500, L500.4050, [id number] ####[facility] [address] [place], [address] GAP 5 Normal 5-[address] [facility] Comment on above: Performed By: #### L 100.0500, L500.4050, [id number] ####[facility] [address] [place], [address] GFR/1.73 sq M.predicted among non-blacks MDRD (S/P/Bld) [Vol rate/Area] 31 mL/min/{1.73_m2} Low >[address] [facility] Comment on above: Result Comment: Non- GFR Calc Performed By: #### L 100.0500, L500.4050, [id number] ####[facility] [address] [place], [address] Globulin (S) [Mass/Vol] 3.8 g/dL Normal 2.2-4.2 [facility] Comment on above: Performed By: #### L 100.0500, L500.4050, [id number] ####[facility] [address] [place], [address] Glucose [Mass/Vol] 116 mg/dL High 74-106 [facility] Comment on above: Result Comment: Fast ing Glucose result from 100 to 125 mg/dLsuggests IMPAIRED HOMEOSTASIS per A.D.A. criteria. Performed By: #### L 100.0500, L500.4050, [id number] ####[facility] [address] [place], [address] Potassium [Moles/Vol] 5.7 mmol/L High 3.5-5.1 [facility] Comment on above: Performed By: #### L 100.0500, L500.4050, [id number] ####[facility] [address] [place], [address] Sodium [Moles/Vol] 142 mmol/L Normal 136-145 [facility] Comment on above: Performed By: #### L 100.0500, L500.4050, [id number] ####[facility] [address] [place], [address] T PROT 6.4 g/dL Normal 6.4-8.[address] [facility] Comment on above: Performed By: #### L 100.0500, L500.4050, [id number] ####[facility] [address] [place], [address] Urea nitrogen [Mass/Vol] 32 mg/dL High 7-[address] [facility] Comment on above: Performed By: #### L 100.0500, L500.4050, [id number] ####[facility] [address] [place], [address] Erythrocyte distribution wid th ratioOrdered By: Joao Ramirez on 12-01-2024 Erythrocyte distribution width (RBC) [Ratio] 15.9 % High 11.6-14.[address] [facility] Erythrocyte distribution wid th standard deviationOrdered By: Joao Ramirez on 12-01-2024 Erythrocyte distribution width (RBC) [Entitic vol] 54.7 fL High 35.1-43.[address] [facility] Erythrocyte distribution width (RBC) [Ratio] 54.7 fl High 35.1-43.[address] [facility] Estimated glomerular filtrat ion rate (GFR) AmericanOrdered By: Joao Ramirez on 12-01-2024 Estimated GFR (MDRD) Amer 37 mL/min Low >[address] [facility] Comment on above: GFR Calc Glomerular filtration rate ( GFR) estimationOrdered By: Joao Ramirez on 12-01-2024 Estimated GFR (MDRD) Non-Af Amer 31 mL/min Low >[address] [facility] Comment on above: Non- GFR Calc GFR/1.73 sq M.predicted among non-blacks MDRD (S/P/Bld) [Vol rate/Area] 31 mL/min/{1.73_m2} Low >[address] [facility] Comment on above: Non- GFR Calc Glucose measurementOrdered B y: Joao Ramirez on 12-01-2024 Glucose [Mass/Vol] 116 mg/dL High 74-106 [facility] Comment on above: Fasting Glucose resu lt from 100 to 125 mg/dL suggests IMPAIRED HOMEOSTASIS per A.D.A. criteria. Hematocrit Auto (Bld) [Volum e fraction]Ordered By: Joao Ramirez on 12-01-2024 Hematocrit (Bld) [Volume fraction] 34.7 % Low 37-[address] [facility] Hemoglobin measurementOrdere d By: Joao Ramirez on 12-01-2024 Hemoglobin (Bld) [Mass/Vol] 10.5 g/dL Low 12.0-15.[address] [facility] Laboratory - Chemistry and C hemistry - challengeOrdered By: Joao Ramirez on 12-01-2024 AST [Catalytic activity/Vol] 15 U/L 15-[address] [facility] MCV (mean corpuscular volume ) determinationOrdered By: Joao Ramirez on 12-01-2024 MCV (RBC) [Entitic vol] 93.5 fL 81-99 [facility] Mean corpuscular hemoglobin (MCH) determinationOrdered By: Joao Ramirez on 12-01-2024 MCH (RBC) [Entitic mass] 28.3 pg 27.0-32.[address] [facility] Mean corpuscular hemoglobin concentration (MCHC) determinationOrdered By: Joao Ramirez on 12-01-2024 MCHC (RBC) [Mass/Vol] 30.3 g/dL Low 32-36 [facility] Mean platelet volume determi nationOrdered By: Joao Ramirez on 12-01-2024 Platelet mean volume (Bld) [Entitic vol] 8.6 fL 6.2-12.[address] [facility] Platelet countOrdered By: Dennise Ramirez on 12-01-2024 Platelets (Bld) [#/Vol] 394 10*3/uL 150-[address] [facility] Potassium measurementOrdered By: Joao Ramirez on 12-01-2024 Potassium [Moles/Vol] 5.7 mmol/L High 3.5-5.1 [facility] RBC Auto (Bld) [#/Vol]Ordere d By: Joao Ramirez on 12-01-2024 RBC (Bld) [#/Vol] 3.71 10*6/uL Low 4.2-5.4 [facility] Serum anion gap measurementO rdered By: Joao Ramirez on 12-01-2024 Anion gap [Moles/Vol] 5 mmol/L 5-15 [facility] Serum globulin measurementOr dered By: Joao Ramirez on 12-01-2024 Globulin (S) [Mass/Vol] 3.8 g/dL 2.2-4.2 [facility] Serum or plasma alanine price otransferase (ALT) measurementOrdered By: Joao Ramirez on 12-01-2024 ALT [Catalytic activity/Vol] 10 U/L Low 13-[address] [facility] Serum or plasma albumin ras urement (mass/volume)Ordered By: Joao Ramirez on 12-01-2024 Albumin [Mass/Vol] 2.6 g/dL Low 3.2-5.0 [facility] Serum or plasma alkaline destini sphatase measurementOrdered By: Joao Ramirez on 12-01-2024 ALP [Catalytic activity/Vol] 94 U/L 45-[address] [facility] Serum or plasma calcium ras urement (mass/volume)Ordered By: Joao Ramirez on 12-01-2024 Calcium [Mass/Vol] 9.1 mg/dL 8.5-10.1 [facility] Serum or plasma creatinine m easurement (mass/volume)Ordered By: Joao Ramirez on 12-01-2024 Creatinine [Mass/Vol] 1.73 mg/dL High 0.55-1.02 [facility] Comment on above: The validity of the calculated GFR & GFRAA in patients over 70 years has not been determined. Clinical correlation is essential. Serum or plasma urea nitroge n measurement (mass/volume)Ordered By: Joao Ramirez on 12-01-2024 Urea nitrogen [Mass/Vol] 32 mg/dL High 7-[address] [facility] Sodium levelOrdered By: Buddy Ramirez on 12-01-2024 Sodium [Moles/Vol] 142 mmol/L 136-145 [facility] Total proteinOrdered By: Irene Ramirez on 12-01-2024 Protein [Mass/Vol] 6.4 g/dL 6.4-8.2 [facility] White blood cell (WBC) count Ordered By: Joao Ramirez on 12-01-2024 WBC (Bld) [#/Vol] 10.8 10*3/uL 4.4-11.0 [facility] AVASTIN (BEVACIZUMAB) 1.25MG INTRAVITREAL INJECTION OD (RIGHT EYE)on 11-30-2024 [facility] OCT MACULA CIRRUS OU (BOTH E YES)on 11-30-2024 [facility] Radiology Study observation (narrative) [facility] Miscellaneous Lab Procedureo n 11-14-2024 [facility] LAB TEST Normal [facility] Comment on above: Order Comment: [id number] STOOL CULTURE Result Comment: KIKE Méndez CULTURESalmonella/Shigella Screen Final ReportResult 1 NO Salmonella or Shigella recovered.Campylobacter Culture Final ReportResult 1 NO Campylobacter species isolated.E. coli Shiga Toxin EIA NEGATIVE ___ [facility] ORIGINAL REPORT ON FILE IN LAB CONTAINS ADDITIONAL TEST SITE INFORMATION. Performed By: #### L 801.1541 ####[facility] [address] [place], [address] 25-OP-Szclxtm DOrdered By: Carlos Castle on 11-10-2024 Vitamin D 25-Hydroxy 36.0 ng/mL [facility] Comment on above: Vitamin D 25(OH) Sta tus Range Deficiency <20 ng/mL (50nmol/L) Insufficiency 20 - 30 ng/mL (50 - 75 nmol/L) Sufficiency 30 - 100 ng/mL (75 - 250 nmol/L) Toxicity >100 ng/mL (>250 nmol/L) Basic Metabolic Profile (BMP )on 11-10-2024 BUN/CRE 18.7 RATIO Normal 10-[address] [facility] Comment on above: Performed By: #### L 506.1000, L500.2500 ####[facility] [address] [place], [address] CA,Total 8.8 mg/dL Normal 8.5-10.[address] [facility] Comment on above: Performed By: #### L 506.1000, L500.2500 ####[facility] [address] [place], [address] Chloride [Moles/Vol] 107 mmol/L Normal 98-107 [facility] Comment on above: Performed By: #### L 506.1000, L500.2500 ####[facility] [address] [place], [address] CO2 [Moles/Vol] 22.0 mmol/L Normal 21.0-32.[address] [facility] Comment on above: Performed By: #### L 506.1000, L500.2500 ####[facility] [address] [place], [address] Creatinine [Mass/Vol] 3.21 mg/dL High 0.55-1.02 [facility] [place] Comment on above: Result Comment: The validity of the calculated GFR GFRAA in patients over70 years has not been determined. Clinical correlation isessential. Performed By: #### L 506.1000, L500.2500 ####[facility] [address] [place], [address] EST GFR - AA 18 mL/min Low >[address] [facility] Comment on above: Result Comment: Afri can Algerian GFR Calc Performed By: #### L 506.1000, L500.2500 ####[facility] [address] [place], [address] GAP 9 Normal 5-[address] [facility] Comment on above: Performed By: #### L 506.1000, L500.2500 ####[facility] [address] [place], [address] GFR/1.73 sq M.predicted among non-blacks MDRD (S/P/Bld) [Vol rate/Area] 15 mL/min/{1.73_m2} Low >[address] [facility] Comment on above: Result Comment: Non- GFR Calc Performed By: #### L 506.1000, L500.2500 ####[facility] [address] [place], [address] Glucose [Mass/Vol] 165 mg/dL High 74-106 [facility] Comment on above: Result Comment: Fast ing Glucose result greater than or equal to 126 mg/dLsuggests DIABETES MELLITUS per A.D.A. criteria. Performed By: #### L 506.1000, L500.2500 ####[facility] [address] [place], [address] Potassium [Moles/Vol] 3.6 mmol/L Normal 3.5-5.1 [facility] [place] Comment on above: Performed By: #### L 506.1000, L500.2500 ####[facility] [address] [place], [address] Sodium [Moles/Vol] 137 mmol/L Normal 136-145 [facility] Comment on above: Performed By: #### L 506.1000, L500.2500 ####[facility] [address] [place], [address] Urea nitrogen [Mass/Vol] 60 mg/dL High 7-[address] [facility] Comment on above: Performed By: #### L 506.1000, L500.2500 ####[facility] [address] [place], [address] Blood urea nitrogen (BUN)/cr eatinine ratioOrdered By: Donal Castle on 11-10-2024 Urea nitrogen/Creatinine [Mass ratio] 18.7 mg/mg 10-[address] [facility] Carbon dioxide measurementOr dered By: Donal Castle on 11-10-2024 CO2 [Moles/Vol] 22.0 mmol/L 21.0-32.[address] [facility] Chloride measurementOrdered By: Donal Castle on 11-10-2024 Chloride [Moles/Vol] 107 mmol/L 98-107 [facility] Estimated glomerular filtrat ion rate (GFR) AmericanOrdered By: Donal Castle on 11-10-2024 Estimated GFR (MDRD) Amer 18 mL/min Low >[address] [facility] Comment on above: GFR Calc Glomerular filtration rate ( GFR) estimationOrdered By: Donal Castle on 11-10-2024 Estimated GFR (MDRD) Non-Af Amer 15 mL/min Low >[address] [facility] Comment on above: Non- GFR Calc Glucose measurementOrdered B y: Donal Castle on 11-10-2024 Glucose [Mass/Vol] 165 mg/dL High 74-106 [facility] Comment on above: Fasting Glucose resu lt greater than or equal to 126 mg/dL suggests DIABETES MELLITUS per A.D.A. criteria. Potassium measurementOrdered By: Donal Castle on 11-10-2024 Potassium [Moles/Vol] 3.6 mmol/L 3.5-5.1 [facility] [place] Serum anion gap measurementO rdered By: Donal Castle on 11-10-2024 Anion gap [Moles/Vol] 9 mmol/L 5-15 [facility] [place] Serum or plasma calcium ras urement (mass/volume)Ordered By: Donal Castle on 11-10-2024 Calcium [Mass/Vol] 8.8 mg/dL 8.5-10.1 [facility] Serum or plasma creatinine m easurement (mass/volume)Ordered By: Donal Castle on 11-10-2024 Creatinine [Mass/Vol] 3.21 mg/dL High 0.55-1.02 [facility] [place] Comment on above: The validity of the calculated GFR & GFRAA in patients over 70 years has not been determined. Clinical correlation is essential. Serum or plasma urea nitroge n measurement (mass/volume)Ordered By: Donal Castle on 11-10-2024 Urea nitrogen [Mass/Vol] 60 mg/dL High 7-[address] [facility] Sodium levelOrdered By: Alka zachariah Castle on 11-10-2024 Sodium [Moles/Vol] 137 mmol/L 136-145 [facility] Vitamin D,25 Hydroxyon 11-10 Vitamin D 25-OH 36.0 ng/mL Normal [facility] Comment on above: Result Comment: Sadaf min D 25(OH) Status Range Deficiency <20 ng/mL (50nmol/L) Insufficiency 20 - 30 ng/mL (50 - 75 nmol/L) Sufficiency 30 - 100 ng/mL (75 - 250 nmol/L) Toxicity >100 ng/mL (>250 nmol/L) Performed By: #### L 506.1000, L500.2500 ####[facility] [address] [place], [address] Basic Metabolic Profile (BMP )on 11-06-2024 BUN/CRE 22.0 RATIO High 10- [facility] Comment on above: Performed By: #### L 500.2500 ####[facility] [address] [place], [address] [place],Total 8.7 mg/dL Normal 8.5-10.[address] [facility] Comment on above: Performed By: #### L 500.2500 ####[facility] [address] [place], [address] Chloride [Moles/Vol] 105 mmol/L Normal 98-107 [facility] Comment on above: Performed By: #### L 500.2500 ####[facility] [address] [place], [address] CO2 [Moles/Vol] 25.0 mmol/L Normal 21.0-32.[address] [facility] Comment on above: Performed By: #### L 500.2500 ####[facility] [address] [place], [address] Creatinine [Mass/Vol] 2.09 mg/dL High 0.55-1.02 [facility] [place] Comment on above: Result Comment: The validity of the calculated GFR GFRAA in patients over70 years has not been determined. Clinical correlation isessential. Performed By: #### L 500.2500 ####[facility] [address] [place], [address] EST GFR - AA 30 mL/min Low >[address] [facility] Comment on above: Result Comment: Afri can Algerian GFR Calc Performed By: #### L 500.2500 ####[facility] [address] [place], [address] GAP 9 Normal 5-[address] [facility] Comment on above: Performed By: #### L 500.2500 ####[facility] [address] [place], [address] GFR/1.73 sq M.predicted among non-blacks MDRD (S/P/Bld) [Vol rate/Area] 25 mL/min/{1.73_m2} Low >[address] [facility] Comment on above: Result Comment: Non- GFR Calc Performed By: #### L 500.2500 ####[facility] [address] [place], [address] Glucose [Mass/Vol] 134 mg/dL High 74-106 [facility] Comment on above: Result Comment: Fast ing Glucose result greater than or equal to 126 mg/dLsuggests DIABETES MELLITUS per A.D.A. criteria. Performed By: #### L 500.2500 ####[facility] [address] [place], [address] Potassium [Moles/Vol] 3.5 mmol/L Normal 3.5-5.1 [facility] Comment on above: Performed By: #### L 500.2500 ####[facility] [address] [place], [address] Sodium [Moles/Vol] 139 mmol/L Normal 136-145 [facility] Comment on above: Performed By: #### L 500.2500 ####[facility] [address] [place], [address] Urea nitrogen [Mass/Vol] 46 mg/dL High 7-[address] [facility] Comment on above: Performed By: #### L 500.2500 ####[facility] [address] [place], [address] BUN Normal 7-[address] [facility] Comment on above: Result Comment: Canc elled via OM: Order cancelled - Patient discharged Performed By: #### L 500.2500 ####[facility] [address] [place], [address] BUN/CRE Normal 10-[address] [facility] Comment on above: Result Comment: Canc elled via OM: Order cancelled - Patient discharged Performed By: #### L 500.2500 ####[facility] [address] [place], [address] [place],Total Normal 8.5-10.[address] [facility] Comment on above: Result Comment: Canc elled via OM: Order cancelled - Patient discharged Performed By: #### L 500.2500 ####[facility] [address] [place], [address] CL Normal 98-[address] [facility] Comment on above: Result Comment: Canc elled via OM: Order cancelled - Patient discharged Performed By: #### L 500.2500 ####[facility] [address] [place], [address] CO2 Normal 21.0-32.[address] [facility] Comment on above: Result Comment: Canc elled via OM: Order cancelled - Patient discharged Performed By: #### L 500.2500 ####[facility] [address] [place], [address] CREAT,SERUM Normal 0.55-1.[address] [facility] Comment on above: Result Comment: Canc elled via OM: Order cancelled - Patient discharged Performed By: #### L 500.2500 ####[facility] [address] [place], [address] EST GFR Normal >[address] [facility] Comment on above: Result Comment: Canc elled via OM: Order cancelled - Patient discharged Performed By: #### L 500.2500 ####[facility] [address] [place], [address] EST GFR - AA Normal >[address] [facility] Comment on above: Result Comment: Canc elled via OM: Order cancelled - Patient discharged Performed By: #### L 500.2500 ####[facility] [address] [place], [address] GAP Normal 5-[address] [facility] Comment on above: Result Comment: Canc elled via OM: Order cancelled - Patient discharged Performed By: #### L 500.2500 ####[facility] [address] [place], [address] GLU Normal 74-[address] [facility] Comment on above: Result Comment: Canc elled via OM: Order cancelled - Patient discharged Performed By: #### L 500.2500 ####[facility] [address] [place], [address] Potassium Normal 3.5-5.[address] [facility] Comment on above: Result Comment: Canc elled via OM: Order cancelled - Patient discharged Performed By: #### L 500.2500 ####[facility] [address] [place], [address] Basic Metabolic Profile (BMP) Normal 136-[address] [facility] Comment on above: Result Comment: Canc elled via OM: Order cancelled - Patient discharged Performed By: #### L 500.2500 ####[facility] [address] [place], [address] Blood urea nitrogen (BUN)/cr eatinine ratioOrdered By: Seth Garnica on 11-06-2024 Urea nitrogen/Creatinine [Mass ratio] 22.0 mg/mg High 10-[address] [facility] Carbon dioxide measurementOr dered By: Seth Garnica on 11-06-2024 CO2 [Moles/Vol] 25.0 mmol/L 21.0-32.[address] [facility] Chloride measurementOrdered By: Seth Garnica on 11-06-2024 Chloride [Moles/Vol] 105 mmol/L 98-107 [facility] Estimated glomerular filtrat ion rate (GFR) AmericanOrdered By: Seth Garnica on 11-06-2024 Estimated GFR (MDRD) Amer 30 mL/min Low >[address] [facility] Comment on above: GFR Calc Glomerular filtration rate ( GFR) estimationOrdered By: Seth Garnica on 11-06-2024 Estimated GFR (MDRD) Non-Af Amer 25 mL/min Low >[address] [facility] Comment on above: Non- GFR Calc Glucose measurementOrdered B y: Seth Garnica on 11-06-2024 Glucose [Mass/Vol] 134 mg/dL High 74-106 [facility] Comment on above: Fasting Glucose resu lt greater than or equal to 126 mg/dL suggests DIABETES MELLITUS per A.D.A. criteria. Miscellaneous procedureOrder ed By: Seth Garnica on 11-06-2024 Miscellaneous Test See comment [facility] Comment on above: STOOL CULTURESalmone lla/Shigella Screen Final ReportResult 1 NO Salmonella or Shigella recovered.Campylobacter Culture Final ReportResult 1 NO Campylobacter species isolated.E. coli Shiga Toxin EIA NEGATIVE ___ [facility]. ORIGINAL REPORT ON FILE IN LAB CONTAINS ADDITIONAL TEST SITE INFORMATION. Potassium measurementOrdered By: Seth Garnica on 11-06-2024 Potassium [Moles/Vol] 3.5 mmol/L 3.5-5.1 [facility] Serum anion gap measurementO rdered By: Seth Garnica on 11-06-2024 Anion gap [Moles/Vol] 9 mmol/L 5-15 [facility] Serum or plasma calcium ras urement (mass/volume)Ordered By: Seth Garnica on 11-06-2024 Calcium [Mass/Vol] 8.7 mg/dL 8.5-10.1 [facility] Serum or plasma creatinine m easurement (mass/volume)Ordered By: Seth Garnica on 11-06-2024 Creatinine [Mass/Vol] 2.09 mg/dL High 0.55-1.02 [facility] Comment on above: The validity of the calculated GFR & GFRAA in patients over 70 years has not been determined. Clinical correlation is essential. Serum or plasma urea nitroge n measurement (mass/volume)Ordered By: Seth Garnica on 11-06-2024 Urea nitrogen [Mass/Vol] 46 mg/dL High - [facility] Sodium levelOrdered By: Sergo Garnica on 11-06-2024 Sodium [Moles/Vol] 139 mmol/L 136-145 [facility] Basic Metabolic Profile (BMP )on 11-05-2024 BUN Normal - [facility] Comment on above: Result Comment: Canc elled via OM: Order cancelled - Patient discharged Performed By: #### L 500.2500 ####[facility] [address] [place], [address] BUN/CRE Normal - [facility] Comment on above: Result Comment: Canc elled via OM: Order cancelled - Patient discharged Performed By: #### L 500.2500 ####[facility] [address] [place], [address] CA,Total Normal 8.5-10.[address] [facility] Comment on above: Result Comment: Canc elled via OM: Order cancelled - Patient discharged Performed By: #### L 500.2500 ####[facility] [address] [place], [address] CL Normal 98-[address] [facility] Comment on above: Result Comment: Canc elled via OM: Order cancelled - Patient discharged Performed By: #### L 500.2500 ####[facility] [address] [place], [address] CO2 Normal 21.0-32.[address] [facility] Comment on above: Result Comment: Canc elled via OM: Order cancelled - Patient discharged Performed By: #### L 500.2500 ####[facility] [address] [place], [address] CREAT,SERUM Normal 0.55-1.[address] [facility] Comment on above: Result Comment: Canc elled via OM: Order cancelled - Patient discharged Performed By: #### L 500.2500 ####[facility] [address] [place], [address] EST GFR Normal >[address] [facility] Comment on above: Result Comment: Canc elled via OM: Order cancelled - Patient discharged Performed By: #### L 500.2500 ####[facility] [address] [place], [address] EST GFR - AA Normal >[address] [facility] Comment on above: Result Comment: Canc elled via OM: Order cancelled - Patient discharged Performed By: #### L 500.2500 ####[facility] [address] [place], [address] GAP Normal 5-[address] [facility] Comment on above: Result Comment: Canc elled via OM: Order cancelled - Patient discharged Performed By: #### L 500.2500 ####[facility] [address] [place], [address] GLU Normal 74-[address] [facility] Comment on above: Result Comment: Canc elled via OM: Order cancelled - Patient discharged Performed By: #### L 500.2500 ####[facility] [address] [place], [address] Potassium Normal 3.5-5.[address] [facility] Comment on above: Result Comment: Canc elled via OM: Order cancelled - Patient discharged Performed By: #### L 500.2500 ####[facility] [address] [place], [address] Basic Metabolic Profile (BMP) Normal 136-[address] [facility] Comment on above: Result Comment: Canc elled via OM: Order cancelled - Patient discharged Performed By: #### L 500.2500 ####[facility] [address] [place], [address] Basic Metabolic Profile (BMP )on 11-04-2024 BUN Normal 7-[address] [facility] Comment on above: Result Comment: Canc elled via OM: Order cancelled - Patient discharged Performed By: #### L 500.2500 ####[facility] [address] [place], [address] BUN/CRE Normal 10-[address] [facility] Comment on above: Result Comment: Canc elled via OM: Order cancelled - Patient discharged Performed By: #### L 500.2500 ####[facility] [address] [place], [address] CA,Total Normal 8.5-10.[address] [facility] Comment on above: Result Comment: Canc elled via OM: Order cancelled - Patient discharged Performed By: #### L 500.2500 ####[facility] [address] [place], [address] CL Normal 98-[address] [facility] Comment on above: Result Comment: Canc elled via OM: Order cancelled - Patient discharged Performed By: #### L 500.2500 ####[facility] [address] [place], [address] CO2 Normal 21.0-32.[address] [facility] Comment on above: Result Comment: Canc elled via OM: Order cancelled - Patient discharged Performed By: #### L 500.2500 ####[facility] [address] [place], [address] CREAT,SERUM Normal 0.55-1.[address] [facility] Comment on above: Result Comment: Canc elled via OM: Order cancelled - Patient discharged Performed By: #### L 500.2500 ####[facility] [address] [place], [address] EST GFR Normal >[address] [facility] Comment on above: Result Comment: Canc elled via OM: Order cancelled - Patient discharged Performed By: #### L 500.2500 ####[facility] [address] [place], [address] EST GFR - AA Normal >[address] [facility] Comment on above: Result Comment: Canc elled via OM: Order cancelled - Patient discharged Performed By: #### L 500.2500 ####[facility] [address] [place], [address] GAP Normal 5-[address] [facility] Comment on above: Result Comment: Canc elled via OM: Order cancelled - Patient discharged Performed By: #### L 500.2500 ####[facility] [address] [place], [address] GLU Normal 74-[address] [facility] Comment on above: Result Comment: Canc elled via OM: Order cancelled - Patient discharged Performed By: #### L 500.2500 ####[facility] [address] [place], [address] Potassium Normal 3.5-5.[address] [facility] Comment on above: Result Comment: Canc elled via OM: Order cancelled - Patient discharged Performed By: #### L 500.2500 ####[facility] [address] [place], [address] Basic Metabolic Profile (BMP) Normal 136-[address] [facility] Comment on above: Result Comment: Canc elled via OM: Order cancelled - Patient discharged Performed By: #### L 500.2500 ####[facility] [address] [place], [address] Basic Metabolic Profile (BMP )on 11-03-2024 BUN Normal 7-[address] [facility] Comment on above: Result Comment: Canc elled via OM: Order cancelled - Patient discharged Performed By: #### L 500.2500 ####[facility] [address] [place], [address] BUN/CRE Normal 10-[address] [facility] Comment on above: Result Comment: Canc elled via OM: Order cancelled - Patient discharged Performed By: #### L 500.2500 ####[facility] [address] [place], [address] CA,Total Normal 8.5-10.[address] [facility] Comment on above: Result Comment: Canc elled via OM: Order cancelled - Patient discharged Performed By: #### L 500.2500 ####[facility] [address] [place], [address] CL Normal 98-[address] [facility] Comment on above: Result Comment: Canc elled via OM: Order cancelled - Patient discharged Performed By: #### L 500.2500 ####[facility] [address] [place], [address] CO2 Normal 21.0-32.[address] [facility] Comment on above: Result Comment: Canc elled via OM: Order cancelled - Patient discharged Performed By: #### L 500.2500 ####[facility] [address] [place], [address] CREAT,SERUM Normal 0.55-1.[address] [facility] Comment on above: Result Comment: Canc elled via OM: Order cancelled - Patient discharged Performed By: #### L 500.2500 ####[facility] [address] [place], [address] EST GFR Normal >[address] [facility] Comment on above: Result Comment: Canc elled via OM: Order cancelled - Patient discharged Performed By: #### L 500.2500 ####[facility] [address] [place], [address] EST GFR - AA Normal >[address] [facility] Comment on above: Result Comment: Canc elled via OM: Order cancelled - Patient discharged Performed By: #### L 500.2500 ####[facility] [address] [place], [address] GAP Normal 5-[address] [facility] Comment on above: Result Comment: Canc elled via OM: Order cancelled - Patient discharged Performed By: #### L 500.2500 ####[facility] [address] [place], [address] GLU Normal 74-[address] [facility] Comment on above: Result Comment: Canc elled via OM: Order cancelled - Patient discharged Performed By: #### L 500.2500 ####[facility] [address] [place], [place], [address] Potassium Normal 3.5-5.[address] [facility] Comment on above: Result Comment: Canc elled via OM: Order cancelled - Patient discharged Performed By: #### L 500.2500 ####[facility] [address] [place], [address] Basic Metabolic Profile (BMP) Normal 136-[address] [facility] Comment on above: Result Comment: Canc elled via OM: Order cancelled - Patient discharged Performed By: #### L 500.2500 ####[facility] [address] [place], [address] Basic Metabolic Profile (BMP )on 11-02-2024 BUN/CRE 19.2 RATIO Normal 10-[address] [facility] Comment on above: Performed By: #### L 500.2500 ####[facility] [address] [place], [address] CA,Total 8.6 mg/dL Normal 8.5-10.[address] [facility] Comment on above: Performed By: #### L 500.2500 ####[facility] [address] [place], [address] Chloride [Moles/Vol] 107 mmol/L Normal 98-107 [facility] Comment on above: Performed By: #### L 500.2500 ####[facility] [address] [place], [address] CO2 [Moles/Vol] 29.0 mmol/L Normal 21.0-32.[address] [facility] Comment on above: Performed By: #### L 500.2500 ####[facility] [address] [place], [address] Creatinine [Mass/Vol] 1.72 mg/dL High 0.55-1.02 [facility] Comment on above: Result Comment: The validity of the calculated GFR GFRAA in patients over70 years has not been determined. Clinical correlation isessential. Performed By: #### L 500.2500 ####[facility] [address] [place], [address] ECRCL 32.32 ml/min Normal [facility] Comment on above: Performed By: #### L 500.2500 ####[facility] [address] [place], [address] EST GFR - AA 37 mL/min Low >[address] [facility] Comment on above: Result Comment: Afri can Algerian GFR Calc Performed By: #### L 500.2500 ####[facility] [address] [place], [address] GAP 4 Low 5-[address] [facility] Comment on above: Performed By: #### L 500.2500 ####[facility] [address] [place], [address] GFR/1.73 sq M.predicted among non-blacks MDRD (S/P/Bld) [Vol rate/Area] 31 mL/min/{1.73_m2} Low >[address] [facility] Comment on above: Result Comment: Non- GFR Calc Performed By: #### L 500.2500 ####[facility] [address] [place], [address] Glucose [Mass/Vol] 111 mg/dL High 74-106 [facility] Comment on above: Result Comment: Fast ing Glucose result from 100 to 125 mg/dLsuggests IMPAIRED HOMEOSTASIS per A.D.A. criteria. Performed By: #### L 500.2500 ####[facility] [address] [place], [address] Potassium [Moles/Vol] 3.9 mmol/L Normal 3.5-5.1 [facility] Comment on above: Performed By: #### L 500.2500 ####[facility] [address] [place], [address] Sodium [Moles/Vol] 140 mmol/L Normal 136-145 [facility] Comment on above: Performed By: #### L 500.2500 ####[facility] [address] [place], [address] Urea nitrogen [Mass/Vol] 33 mg/dL High 7-[address] [facility] Comment on above: Performed By: #### L 500.2500 ####[facility] [address] [place], [address] Bedside Glucoseon 11-02-2024 FINGERSTICK GLU 142 mg/dL High 74-[address] [facility] Comment on above: Result Comment: RONNIE VELAZQUEZ OF PATIENT CARE PER NURSING PROTOCOL Performed By: #### L 501.080 ####[facility] [address] [place], [address] FINGERSTICK GLU 99 mg/dL Normal 74-[address] [facility] Comment on above: Result Comment: RONNIE VELAZQUEZ OF PATIENT CARE PER NURSING PROTOCOL Performed By: #### L 501.080 ####[facility] [address] [place], [address] Blood urea nitrogen (BUN)/cr eatinine ratioOrdered By: Seth Garnica on 11-02-2024 Urea nitrogen/Creatinine [Mass ratio] 19.2 mg/mg - [facility] CBC-Complete Blood Cnt No Di ffon 11-02-2024 Erythrocyte distribution width (RBC) [Ratio] 15.5 % High 11.6-14.[address] [facility] Comment on above: Performed By: #### L 100.0500 ####[facility] [address] [place], [address] Hematocrit (Bld) [Volume fraction] 31.8 % Low 37-[address] [facility] Comment on above: Performed By: #### L 100.0500 ####[facility] [address] [place], [address] Hemoglobin (Bld) [Mass/Vol] 10.1 g/dL Low 12.0-15.[address] [facility] Comment on above: Performed By: #### L 100.0500 ####[facility] [address] [place], [address] MCH (RBC) [Entitic mass] 29.8 pg Normal 27.0-32.[address] [facility] Comment on above: Performed By: #### L 100.0500 ####[facility] [address] [place], [address] MCHC (RBC) [Mass/Vol] 31.8 g/dL Low 32-36 [facility] Comment on above: Performed By: #### L 100.0500 ####[facility] [address] [place], [address] MCV (RBC) [Entitic vol] 93.8 fL Normal 81-99 [facility] Comment on above: Performed By: #### L 100.0500 ####[facility] [address] [place], [address] Platelet mean volume (Bld) [Entitic vol] 9.1 fL Normal 6.2-12.[address] [facility] Comment on above: Performed By: #### L 100.0500 ####[facility] [address] [place], [address] Platelets (Bld) [#/Vol] 244 10*3/uL Normal 150-[address] [facility] Comment on above: Performed By: #### L 100.0500 ####[facility] [address] [place], [address] RBC (Bld) [#/Vol] 3.39 10*6/uL Low 4.2-5.4 [facility] Comment on above: Performed By: #### L 100.0500 ####[facility] [address] [place], [address] RDW SD 50.3 fl High 35.1-43.[address] [facility] Comment on above: Performed By: #### L 100.0500 ####[facility] [address] [place], [address] WBC (Bld) [#/Vol] 7.7 10*3/uL Normal 4.4-11.0 [facility] Comment on above: Performed By: #### L 100.0500 ####[facility] [address] [place], [address] Carbon dioxide measurementOr dered By: Seth Garnica on 11-02-2024 CO2 [Moles/Vol] 29.0 mmol/L 21.0-32.[address] [facility] Chest 1 View (Portable)on Chest 1 View (Portable) Normal [facility] Chloride measurementOrdered By: Seth Garnica on 11-02-2024 Chloride [Moles/Vol] 107 mmol/L 98-107 [facility] Discharge Instructionon 10-15 Discharge Instruction Normal [facility] Erythrocyte distribution wid th ratioOrdered By: Seth Garnica on 11-02-2024 Erythrocyte distribution width (RBC) [Ratio] 15.5 % High 11.6-14.[address] [facility] Erythrocyte distribution wid th standard deviationOrdered By: Seth Garnica on 11-02-2024 Erythrocyte distribution width (RBC) [Entitic vol] 50.3 fL High 35.1-43.[address] [facility] Estimated glomerular filtrat ion rate (GFR) AmericanOrdered By: Seth Garnica on 11-02-2024 Estimated GFR (MDRD) Amer 37 mL/min Low >[address] [facility] Comment on above: GFR Calc Estimation of creatinine mp aranceOrdered By: Seth Garnica on 11-02-2024 Estimated Creatinine Clearance Calc 32.32 ml/min [facility] Glomerular filtration rate ( GFR) estimationOrdered By: Seth Garnica on 11-02-2024 Estimated GFR (MDRD) Non-Af Amer 31 mL/min Low >[address] [facility] Comment on above: Non- GFR Calc Glucose measurementOrdered B y: Seth Garnica on 11-02-2024 Glucose [Mass/Vol] 111 mg/dL High 74-106 [facility] Comment on above: Fasting Glucose resu lt from 100 to 125 mg/dL suggests IMPAIRED HOMEOSTASIS per A.D.A. criteria. Glucose measurement at bedsi deOrdered By: Seth Garnica on 11-02-2024 Bedside Glucose (Misc Panel) 142 mg/dL High 74-[address] [facility] Comment on above: MANAGEMENT OF PATIEN T CARE PER NURSING PROTOCOL Hematocrit Auto (Bld) [Volum e fraction]Ordered By: Seth Garnica on 11-02-2024 Hematocrit (Bld) [Volume fraction] 31.8 % Low 37-[address] [facility] Hemoglobin measurementOrdere d By: Seth Garnica on 11-02-2024 Hemoglobin (Bld) [Mass/Vol] 10.1 g/dL Low 12.0-15.[address] [facility] MCV (mean corpuscular volume ) determinationOrdered By: Seth Garnica on 11-02-2024 MCV (RBC) [Entitic vol] 93.8 fL 81-99 [facility] Mean corpuscular hemoglobin (MCH) determinationOrdered By: Seth Garnica on 11-02-2024 MCH (RBC) [Entitic mass] 29.8 pg 27.0-32.[address] [facility] Mean corpuscular hemoglobin concentration (MCHC) determinationOrdered By: Seth Garnica on 11-02-2024 MCHC (RBC) [Mass/Vol] 31.8 g/dL Low 32-36 [facility] Mean platelet volume determi nationOrdered By: Seth Garnica on 11-02-2024 Platelet mean volume (Bld) [Entitic vol] 9.1 fL 6.2-12.[address] [facility] Platelet countOrdered By: To Garnica on 11-02-2024 Platelets (Bld) [#/Vol] 244 10*3/uL 150-[address] [facility] Potassium measurementOrdered By: Seth Garnica on 11-02-2024 Potassium [Moles/Vol] 3.9 mmol/L 3.5-5.1 [facility] RBC Auto (Bld) [#/Vol]Ordere d By: Seth Garnica on 11-02-2024 RBC (Bld) [#/Vol] 3.39 10*6/uL Low 4.2-5.4 [facility] Serum anion gap measurementO rdered By: Seth Garnica on 11-02-2024 Anion gap [Moles/Vol] 4 mmol/L Low 5-15 [facility] Serum or plasma calcium ras urement (mass/volume)Ordered By: Seth Garnica on 11-02-2024 Calcium [Mass/Vol] 8.6 mg/dL 8.5-10.1 [facility] Serum or plasma creatinine m easurement (mass/volume)Ordered By: Seth Garnica on 11-02-2024 Creatinine [Mass/Vol] 1.72 mg/dL High 0.55-1.02 [facility] Comment on above: The validity of the calculated GFR & GFRAA in patients over 70 years has not been determined. Clinical correlation is essential. Serum or plasma urea nitroge n measurement (mass/volume)Ordered By: Seth Garnica on 11-02-2024 Urea nitrogen [Mass/Vol] 33 mg/dL High 7-[address] [facility] Sodium levelOrdered By: Sergo bellamy Nahun on 11-02-2024 Sodium [Moles/Vol] 140 mmol/L 136-145 [facility] White blood cell (WBC) count Ordered By: Seth Garnica on 11-02-2024 WBC (Bld) [#/Vol] 7.7 10*3/uL 4.4-11.0 [facility] Basic Metabolic Profile (BMP )on 11-01-2024 BUN/CRE 19.3 RATIO Normal 10-[address] [facility] Comment on above: Performed By: #### L 500.2500 ####[facility] [address] [facility] [address] [place],Total 8.7 mg/dL Normal 8.5-10.[address] [facility] Comment on above: Performed By: #### L 500.2500 ####[facility] [address] [place], [address] Chloride [Moles/Vol] 111 mmol/L High 98-107 [facility] Comment on above: Performed By: #### L 500.2500 ####[facility] [address] [place], [address] CO2 [Moles/Vol] 28.0 mmol/L Normal 21.0-32.[address] [facility] Comment on above: Performed By: #### L 500.2500 ####[facility] [address] [place], [address] Creatinine [Mass/Vol] 1.50 mg/dL High 0.55-1.02 [facility] Comment on above: Result Comment: The validity of the calculated GFR GFRAA in patients over70 years has not been determined. Clinical correlation isessential. Performed By: #### L 500.2500 ####[facility] [address] [place], [address] ECRCL 37.26 ml/min Normal [facility] Comment on above: Performed By: #### L 500.2500 ####[facility] [address] [place], [address] EST GFR - AA 44 mL/min Low >[address] [facility] Comment on above: Result Comment: Afri can Algerian GFR Calc Performed By: #### L 500.2500 ####[facility] [address] [place], [address] GAP 5 Normal 5-[address] [facility] Comment on above: Performed By: #### L 500.2500 ####[facility] [address] [place], [address] GFR/1.73 sq M.predicted among non-blacks MDRD (S/P/Bld) [Vol rate/Area] 36 mL/min/{1.73_m2} Low >[address] [facility] Comment on above: Result Comment: Non- GFR Calc Performed By: #### L 500.2500 ####[facility] [address] [place], [address] Glucose [Mass/Vol] 114 mg/dL High 74-106 [facility] Comment on above: Result Comment: Fast ing Glucose result from 100 to 125 mg/dLsuggests IMPAIRED HOMEOSTASIS per A.D.A. criteria. Performed By: #### L 500.2500 ####[facility] [address] [place], [address] Potassium [Moles/Vol] 4.3 mmol/L Normal 3.5-5.1 [facility] Comment on above: Performed By: #### L 500.2500 ####[facility] [address] [place], [address] Sodium [Moles/Vol] 144 mmol/L Normal 136-145 [facility] Comment on above: Performed By: #### L 500.2500 ####[facility] [address] [place], [address] Urea nitrogen [Mass/Vol] 29 mg/dL High -[address] [facility] Comment on above: Performed By: #### L 500.2500 ####[facility] [address] [place], [address] Bedside Glucoseon 11-01-2024 FINGERSTICK GLU 143 mg/dL High 74-[address] [facility] Comment on above: Result Comment: RONNIE GEMENT OF PATIENT CARE PER NURSING PROTOCOL Performed By: #### L 501.080 ####[facility] [address] [place], [address] FINGERSTICK GLU 105 mg/dL Normal 74-[address] [facility] Comment on above: Result Comment: RONNIE GEMENT OF PATIENT CARE PER NURSING PROTOCOL Performed By: #### L 501.080 ####[facility] [address] [place], [address] FINGERSTICK GLU 175 mg/dL High 74-[address] [facility] Comment on above: Result Comment: RONNIE GEMENT OF PATIENT CARE PER NURSING PROTOCOL Performed By: #### L 501.080 ####[facility] [address] [place], [address] FINGERSTICK GLU 113 mg/dL High 74-[address] [facility] Comment on above: Result Comment: RONNIE GEMENT OF PATIENT CARE PER NURSING PROTOCOL Performed By: #### L 501.080 ####[facility] [address] [place], [address] Absolute neutrophil countOrd ered By: Aparna Mabry on 10-31-2024 Neutrophils (Bld) [#/Vol] 6.8 10*3/uL 2.0-7.[address] [facility] Albumin to globulin ratioOrd ered By: Aparna Mabry on 10-31-2024 Albumin/Globulin [Mass ratio] 1.0 {ratio} 0.9-2.[address] [facility] Basophil percentageOrdered B y: Aparna Mabry on 10-31-2024 Basophils/100 WBC (Bld) 0.4 % 0-1 [facility] Bedside Glucoseon 10-31-2024 FINGERSTICK GLU 115 mg/dL High 74-[address] [facility] Comment on above: Result Comment: RONNIE GEMENT OF PATIENT CARE PER NURSING PROTOCOL Performed By: #### L 501.080 ####[facility] [address] [facility] [address] FINGERSTICK GLU 171 mg/dL High 74-[address] [facility] Comment on above: Result Comment: RONNIE GEMENT OF PATIENT CARE PER NURSING PROTOCOL Performed By: #### L 501.080 ####[facility] [address] [place], [address] FINGERSTICK GLU 138 mg/dL High -[address] [facility] Comment on above: Result Comment: RONNIE GEMENT OF PATIENT CARE PER NURSING PROTOCOL Performed By: #### L 501.080 ####[facility] [address] [facility] [address] FINGERSTICK GLU 102 mg/dL Normal -[address] [facility] Comment on above: Result Comment: RONNIE GEMENT OF PATIENT CARE PER NURSING PROTOCOL Performed By: #### L 501.080 ####[facility] [address] [place], [address] Bilirubin, totalOrdered By: Aparna Mabry on 10-31-2024 Bilirubin [Mass/Vol] 0.50 mg/dL 0.20-1.00 [facility] Comment on above: For patients on eltr ombopag therapy, use of Dimension [place] TBIL is not recommended. CBC W/Diff, Automatedon 10-15 Absolute Lymph 1.67 X10 3/uL Normal 0.83-4.[address] [facility] Comment on above: Performed By: #### L 100.0100, L500.4050 ####[facility] [address] [place], [address] Absolute Neut 6.8 X10 3/uL Normal 2.0-7.[address] [facility] Comment on above: Performed By: #### L 100.0100, L500.4050 ####[facility] [address] [place], [address] Basophils/100 WBC (Bld) 0.4 % Normal 0-1 [facility] Comment on above: Performed By: #### L 100.0100, L500.4050 ####[facility] [address] [place], [address] Eosinophils/100 WBC (Bld) 2.4 % Normal 0-[address] [facility] Comment on above: Performed By: #### L 100.0100, L500.4050 ####[facility] [address] [place], [address] Erythrocyte distribution width (RBC) [Ratio] 15.9 % High 11.6-14.[address] [facility] Comment on above: Performed By: #### L 100.0100, L500.4050 ####[facility] [address] [place], [address] Hematocrit (Bld) [Volume fraction] 32.9 % Low 37-[address] [facility] Comment on above: Performed By: #### L 100.0100, L500.4050 ####[facility] [address] [place], [address] Hemoglobin (Bld) [Mass/Vol] 10.2 g/dL Low 12.0-15.[address] [facility] Comment on above: Performed By: #### L 100.0100, L500.4050 ####[facility] [address] [place], [address] IG% 0.700 Normal 0.0-0.[address] [facility] Comment on above: Result Comment: IG% - Immature Granulocytes (promyelocytes, myelocytes andmetamyelocytes) > 1% indicates that a LEFT SHIFT is Present. Performed By: #### L 100.0100, L500.4050 ####[facility] [address] [place], [address] Lymphocytes/100 WBC (Bld) 17.3 % Low 19-[address] [facility] Comment on above: Performed By: #### L 100.0100, L500.4050 ####[facility] [address] [place], [address] MCH (RBC) [Entitic mass] 29.6 pg Normal 27.0-32.[address] [facility] Comment on above: Performed By: #### L 100.0100, L500.4050 ####[facility] [address] [place], [address] MCHC (RBC) [Mass/Vol] 31.0 g/dL Low 32-36 [facility] Comment on above: Performed By: #### L 100.0100, L500.4050 ####[facility] [address] [place], [address] MCV (RBC) [Entitic vol] 95.4 fL Normal 81-99 [facility] Comment on above: Performed By: #### L 100.0100, L500.4050 ####[facility] [address] [place], [address] Monocytes/100 WBC (Bld) 8.3 % Normal 0-10 [facility] Comment on above: Performed By: #### L 100.0100, L500.4050 ####[facility] [address] [place], [address] Neutrophils/100 WBC (Bld) 70.9 % High 47-[address] [facility] Comment on above: Performed By: #### L 100.0100, L500.4050 ####[facility] [address] [place], [address] Nucleated RBC (Bld) [#/Vol] 0.8 10*3/uL Normal 0-[address] [facility] Comment on above: Performed By: #### L 100.0100, L500.4050 ####[facility] [address] [place], [address] Platelet mean volume (Bld) [Entitic vol] 9.0 fL Normal 6.2-12.[address] [facility] Comment on above: Performed By: #### L 100.0100, L500.4050 ####[facility] [address] [place], [address] Platelets (Bld) [#/Vol] 280 10*3/uL Normal 150-[address] [facility] Comment on above: Performed By: #### L 100.0100, L500.4050 ####[facility] [address] [place], [address] RBC (Bld) [#/Vol] 3.45 10*6/uL Low 4.2-5.4 [facility] Comment on above: Performed By: #### L 100.0100, L500.4050 ####[facility] [address] [place], [address] RDW SD 51.4 fl High 35.1-43.[address] [facility] Comment on above: Performed By: #### L 100.0100, L500.4050 ####[facility] [address] [place], [address] WBC (Bld) [#/Vol] 9.6 10*3/uL Normal 4.4-11.0 [facility] Comment on above: Performed By: #### L 100.0100, L500.4050 ####[facility] [address] [place], [address] Chest 1 View (Portable)on Chest 1 View (Portable) Normal [facility] Comprehensive Metabolic Prof ilon 10-31-2024 Albumin [Mass/Vol] 3.0 g/dL Low 3.2-5.0 [facility] Comment on above: Performed By: #### L 100.0100, L500.4050 ####[facility] [address] [place], [address] Albumin/Globulin [Mass ratio] 1.0 {ratio} Normal 0.9-2.[address] [facility] Comment on above: Performed By: #### L 100.0100, L500.4050 ####[facility] [address] [place], [address] ALK P 83 U/L Normal 45-[address] [facility] Comment on above: Performed By: #### L 100.0100, L500.4050 ####[facility] [address] [place], [address] ALT [Catalytic activity/Vol] 21 U/L Normal 13-[address] [facility] Comment on above: Performed By: #### L 100.0100, L500.4050 ####[facility] [address] [place], [address] AST [Catalytic activity/Vol] 17 U/L Normal 15-[address] [facility] Comment on above: Performed By: #### L 100.0100, L500.4050 ####[facility] [address] [place], [address] Bilirubin [Mass/Vol] 0.50 mg/dL Normal 0.20-1.00 [facility] Comment on above: Result Comment: For patients on eltrombopag therapy, use of Dimension [place] TBIL is not recommended. Performed By: #### L 100.0100, L500.4050 ####[facility] [address] [place], [address] BUN/CRE 18.4 RATIO Normal 10-[address] [facility] Comment on above: Performed By: #### L 100.0100, L500.4050 ####[facility] [address] [place], [address] CA,Total 8.8 mg/dL Normal 8.5-10.[address] [facility] Comment on above: Performed By: #### L 100.0100, L500.4050 ####[facility] [address] [place], [address] Chloride [Moles/Vol] 112 mmol/L High 98-107 [facility] Comment on above: Performed By: #### L 100.0100, L500.4050 ####[facility] [address] [place], [address] CO2 [Moles/Vol] 26.0 mmol/L Normal 21.0-32.[address] [facility] Comment on above: Performed By: #### L 100.0100, L500.4050 ####[facility] [address] [place], [address] Creatinine [Mass/Vol] 1.52 mg/dL High 0.55-1.02 [facility] Comment on above: Result Comment: The validity of the calculated GFR GFRAA in patients over70 years has not been determined. Clinical correlation isessential. Performed By: #### L 100.0100, L500.4050 ####[facility] [address] [place], [address] ECRCL 38.15 ml/min Normal [facility] Comment on above: Performed By: #### L 100.0100, L500.4050 ####[facility] [address] [place], [address] EST GFR - AA 43 mL/min Low >[address] [facility] Comment on above: Result Comment: Afri can Algerian GFR Calc Performed By: #### L 100.0100, L500.4050 ####[facility] [address] [place], [address] GAP 5 Normal 5-[address] [facility] Comment on above: Performed By: #### L 100.0100, L500.4050 ####[facility] [address] [place], [address] GFR/1.73 sq M.predicted among non-blacks MDRD (S/P/Bld) [Vol rate/Area] 36 mL/min/{1.73_m2} Low >[address] [facility] Comment on above: Result Comment: Non- GFR Calc Performed By: #### L 100.0100, L500.4050 ####[facility] [address] [place], [address] Globulin (S) [Mass/Vol] 3.1 g/dL Normal 2.2-4.2 [facility] Comment on above: Performed By: #### L 100.0100, L500.4050 ####[facility] [address] [place], [address] Glucose [Mass/Vol] 117 mg/dL High 74-106 [facility] Comment on above: Result Comment: Fast ing Glucose result from 100 to 125 mg/dLsuggests IMPAIRED HOMEOSTASIS per A.D.A. criteria. Performed By: #### L 100.0100, L500.4050 ####[facility] [address] [place], [address] Potassium [Moles/Vol] 4.1 mmol/L Normal 3.5-5.1 [facility] Comment on above: Performed By: #### L 100.0100, L500.4050 ####[facility] [address] [place], [address] Sodium [Moles/Vol] 143 mmol/L Normal 136-145 [facility] Comment on above: Performed By: #### L 100.0100, L500.4050 ####[facility] [address] [place], [address] T PROT 6.1 g/dL Low 6.4-8.[address] [facility] Comment on above: Performed By: #### L 100.0100, L500.4050 ####[facility] [address] [place], [address] Urea nitrogen [Mass/Vol] 28 mg/dL High 7-[address] [facility] Comment on above: Performed By: #### L 100.0100, L500.4050 ####[facility] [address] [place], [address] Eosinophil percentageOrdered By: Aparna Mabry on 10-31-2024 Eosinophils/100 WBC (Bld) 2.4 % 0-[address] [facility] Immature granulocytes/100 WB C Auto (Bld)Ordered By: Aparna Mabry on 10-31-2024 Immature granulocytes/100 WBC (Bld) 0.700 % 0.0-0.[address] [facility] Comment on above: IG% - Immature Granu locytes (promyelocytes, myelocytes and metamyelocytes) > 1% indicates that a LEFT SHIFT is Present. Laboratory - Chemistry and C hemistry - challengeOrdered By: Aparna Mabry on 10-31-2024 AST [Catalytic activity/Vol] 17 U/L 15-[address] [facility] Lymphocytes Auto (Unsp spec) [#/Vol]Ordered By: Aparna Mabry on 10-31-2024 Lymphocytes (Bld) [#/Vol] 1.67 10*3/uL 0.83-4.[address] [facility] Lymphocytes/100 WBC Auto (Un sp spec)Ordered By: Aparna Mabry on 10-31-2024 Lymphocytes/100 WBC (Bld) 17.3 % Low 19-[address] [facility] Monocyte percentageOrdered B y: Aparna Mabry on 10-31-2024 Monocytes/100 WBC (Bld) 8.3 % 0-10 [facility] Neutrophil percentageOrdered By: Aparna Mabry on 10-31-2024 Neutrophils/100 WBC (Bld) 70.9 % High 47-[address] [facility] Nucleated red blood cell per centageOrdered By: Aparna Mabry on 10-31-2024 Nucleated RBC/100 WBC (Bld) [Ratio] 0.8 % 0-[address] [facility] Serum globulin measurementOr dered By: Aparna Mabry on 10-31-2024 Globulin (S) [Mass/Vol] 3.1 g/dL 2.2-4.2 [facility] Serum or plasma alanine price otransferase (ALT) measurementOrdered By: Aparna Mabry on 10-31-2024 ALT [Catalytic activity/Vol] 21 U/L 13-[address] [facility] Serum or plasma albumin ras urement (mass/volume)Ordered By: Aparna Mabry on 10-31-2024 Albumin [Mass/Vol] 3.0 g/dL Low 3.2-5.0 [facility] Serum or plasma alkaline destini sphatase measurementOrdered By: Aparna Mabry on 10-31-2024 ALP [Catalytic activity/Vol] 83 U/L 45-[address] [facility] Total proteinOrdered By: Zee Mabry on 10-31-2024 Protein [Mass/Vol] 6.1 g/dL Low 6.4-8.2 [facility] 12 Lead EKGon 10-30-2024 12 Lead EKG Normal [facility] BNP (brain natriuretic pepti de measurement)Ordered By: Fitz Deleon on 10-30-2024 Natriuretic peptide B (Bld) [Mass/Vol] 1105.1 pg/mL High 0-[address] [facility] BNP,B-Type NATRIURETIC PEPTI Ting 10-30-2024 Natriuretic peptide B (Bld) [Mass/Vol] 1105.1 pg/mL High 0-[address] [facility] Comment on above: Performed By: #### L 501.5425, L500.2500, L100.0100, L300.8000, L503.6620 ####[facility] [address] [place], [place], [address] Basic Metabolic Profile (BMP )on 10-30-2024 BUN/CRE 19.5 RATIO Normal 10-[address] [facility] Comment on above: Order Comment: 1Y Performed By: #### L 501.5425, L500.2500, L100.0100, L300.8000, L503.6620 ####[facility] [address] [place], [address] CA,Total 9.6 mg/dL Normal 8.5-10.[address] [facility] Comment on above: Order Comment: 1Y Performed By: #### L 501.5425, L500.2500, L100.0100, L300.8000, L503.6620 ####[facility] [address] [place], [address] Chloride [Moles/Vol] 110 mmol/L High 98-107 [facility] Comment on above: Order Comment: 1Y Performed By: #### L 501.5425, L500.2500, L100.0100, L300.8000, L503.6620 ####[facility] [address] [place], [address] CO2 [Moles/Vol] 24.0 mmol/L Normal 21.0-32.[address] [facility] Comment on above: Order Comment: 1Y Performed By: #### L 501.5425, L500.2500, L100.0100, L300.8000, L503.6620 ####[facility] [address] [place], [address] Creatinine [Mass/Vol] 1.54 mg/dL High 0.55-1.02 [facility] Comment on above: Order Comment: 1Y Result Comment: The validity of the calculated GFR GFRAA in patients over70 years has not been determined. Clinical correlation isessential. Performed By: #### L 501.5425, L500.2500, L100.0100, L300.8000, L503.6620 ####[facility] [address] [place], [address] EST GFR - AA 42 mL/min Low >[address] [facility] Comment on above: Order Comment: 1Y Result Comment: Afri can Algerian GFR Calc Performed By: #### L 501.5425, L500.2500, L100.0100, L300.8000, L503.6620 ####[facility] [address] [place], [address] GAP 7 Normal 5-[address] [facility] Comment on above: Order Comment: 1Y Performed By: #### L 501.5425, L500.2500, L100.0100, L300.8000, L503.6620 ####[facility] [address] [place], [address] GFR/1.73 sq M.predicted among non-blacks MDRD (S/P/Bld) [Vol rate/Area] 35 mL/min/{1.73_m2} Low >[address] [facility] Comment on above: Order Comment: 1Y Result Comment: Non- GFR Calc Performed By: #### L 501.5425, L500.2500, L100.0100, L300.8000, L503.6620 ####[facility] [address] [place], [address] Glucose [Mass/Vol] 167 mg/dL High 74-106 [facility] Comment on above: Order Comment: 1Y Result Comment: Fast ing Glucose result greater than or equal to 126 mg/dLsuggests DIABETES MELLITUS per A.D.A. criteria. Performed By: #### L 501.5425, L500.2500, L100.0100, L300.8000, L503.6620 ####[facility] [address] [place], [address] Potassium [Moles/Vol] 4.4 mmol/L Normal 3.5-5.1 [facility] Comment on above: Order Comment: 1Y Performed By: #### L 501.5425, L500.2500, L100.0100, L300.8000, L503.6620 ####[facility] [address] [place], [address] Sodium [Moles/Vol] 141 mmol/L Normal 136-145 [facility] Comment on above: Order Comment: 1Y Performed By: #### L 501.5425, L500.2500, L100.0100, L300.8000, L503.6620 ####[facility] [address] [place], [address] Urea nitrogen [Mass/Vol] 30 mg/dL High 7-[address] [facility] Comment on above: Order Comment: 1Y Performed By: #### L 501.5425, L500.2500, L100.0100, L300.8000, L503.6620 ####[facility] [address] [place], [address] Bedside Glucoseon - FINGERSTICK GLU 159 mg/dL High 74-[address] [facility] Comment on above: Result Comment: RONNIE GEMENT OF PATIENT CARE PER NURSING PROTOCOL Performed By: #### L 501.080 ####[facility] [address] [place], [address] FINGERSTICK GLU 110 mg/dL High 74-[address] [facility] Comment on above: Result Comment: RONNIE GEMENT OF PATIENT CARE PER NURSING PROTOCOL Performed By: #### L 501.080 ####[facility] [address] [place], [address] CBC W/Diff, Automatedon 10-15 Absolute Lymph 1.40 X10 3/uL Normal 0.83-4.[address] [facility] Comment on above: Performed By: #### L 501.5425, L500.2500, L100.0100, L300.8000, L503.6620 ####[facility] [address] [place], [address] Absolute Neut 10.5 X10 3/uL High 2.0-7.[address] [facility] Comment on above: Performed By: #### L 501.5425, L500.2500, L100.0100, L300.8000, L503.6620 ####[facility] [address] [place], [address] Basophils/100 WBC (Bld) 0.5 % Normal 0-1 [facility] Comment on above: Performed By: #### L 501.5425, L500.2500, L100.0100, L300.8000, L503.6620 ####[facility] [address] [place], [address] Eosinophils/100 WBC (Bld) 0.8 % Normal 0-[address] [facility] Comment on above: Performed By: #### L 501.5425, L500.2500, L100.0100, L300.8000, L503.6620 ####[facility] [address] [place], [address] Erythrocyte distribution width (RBC) [Ratio] 15.6 % High 11.6-14.[address] [facility] Comment on above: Performed By: #### L 501.5425, L500.2500, L100.0100, L300.8000, L503.6620 ####[facility] [address] [place], [address] Hematocrit (Bld) [Volume fraction] 40.3 % Normal 37-[address] [facility] Comment on above: Performed By: #### L 501.5425, L500.2500, L100.0100, L300.8000, L503.6620 ####[facility] [address] [place], [address] Hemoglobin (Bld) [Mass/Vol] 12.4 g/dL Normal 12.0-15.[address] [facility] Comment on above: Performed By: #### L 501.5425, L500.2500, L100.0100, L300.8000, L503.6620 ####[facility] [address] [place], [address] IG% 1.800 High 0.0-0.[address] [facility] Comment on above: Result Comment: IG% - Immature Granulocytes (promyelocytes, myelocytes andmetamyelocytes) > 1% indicates that a LEFT SHIFT is Present. Performed By: #### L 501.5425, L500.2500, L100.0100, L300.8000, L503.6620 ####[facility] [address] [place], [address] Lymphocytes/100 WBC (Bld) 10.8 % Low 19-[address] [facility] Comment on above: Performed By: #### L 501.5425, L500.2500, L100.0100, L300.8000, L503.6620 ####[facility] [address] [place], [address] MCH (RBC) [Entitic mass] 29.0 pg Normal 27.0-32.[address] [facility] Comment on above: Performed By: #### L 501.5425, L500.2500, L100.0100, L300.8000, L503.6620 ####[facility] [address] [place], [address] MCHC (RBC) [Mass/Vol] 30.8 g/dL Low 32-36 [facility] Comment on above: Performed By: #### L 501.5425, L500.2500, L100.0100, L300.8000, L503.6620 ####[facility] [address] [place], [address] MCV (RBC) [Entitic vol] 94.4 fL Normal 81-99 [facility] Comment on above: Performed By: #### L 501.5425, L500.2500, L100.0100, L300.8000, L503.6620 ####[facility] [address] [place], [address] Monocytes/100 WBC (Bld) 5.3 % Normal 0-10 [facility] Comment on above: Performed By: #### L 501.5425, L500.2500, L100.0100, L300.8000, L503.6620 ####[facility] [address] [place], [address] Neutrophils/100 WBC (Bld) 80.8 % High 47-[address] [facility] Comment on above: Performed By: #### L 501.5425, L500.2500, L100.0100, L300.8000, L503.6620 ####[facility] [address] [place], [address] Nucleated RBC (Bld) [#/Vol] 1.8 10*3/uL Normal 0-[address] [facility] Comment on above: Performed By: #### L 501.5425, L500.2500, L100.0100, L300.8000, L503.6620 ####[facility] [address] [place], [address] Platelet mean volume (Bld) [Entitic vol] 9.1 fL Normal 6.2-12.[address] [facility] Comment on above: Performed By: #### L 501.5425, L500.2500, L100.0100, L300.8000, L503.6620 ####[facility] [address] [place], [address] Platelets (Bld) [#/Vol] 375 10*3/uL Normal 150-[address] [facility] Comment on above: Performed By: #### L 501.5425, L500.2500, L100.0100, L300.8000, L503.6620 ####[facility] [address] [place], [address] RBC (Bld) [#/Vol] 4.27 10*6/uL Normal 4.2-5.4 [facility] Comment on above: Performed By: #### L 501.5425, L500.2500, L100.0100, L300.8000, L503.6620 ####[facility] [address] [place], [address] RDW SD 49.0 fl High 35.1-43.[address] [facility] Comment on above: Performed By: #### L 501.5425, L500.2500, L100.0100, L300.8000, L503.6620 ####[facility] [address] [place], [address] WBC (Bld) [#/Vol] 12.9 10*3/uL High 4.4-11.0 [facility] Comment on above: Performed By: #### L 501.5425, L500.2500, L100.0100, L300.8000, L503.6620 ####[facility] [address] [place], [address] CTA Chest W/WO Contraston CTA Chest W/WO Contrast Normal [facility] Chest PA and Lateralon 10-30 Chest PA and Lateral Normal [facility] D-Dimer Quantitative (DVT/PE )on 10-30-2024 D-DIMER QUANT 0.94 FEU/ug/m Invalid Interpretation Code 0.27-0.[address] [facility] Comment on above: Result Comment: D-Di olivia ELEVATED (>0.49): Additional studies and clinicalassessments are indicated to conclude diagnosis of:Deep Vein Thrombosis (DVT) or Pulmonary Embolism (PE)CRITICAL VALUE CALLED TO YARELI MENENDEZ (ER)10/30/24 1511 Jeancarlos Marley.RESULTS READ BACK BY SAME. Performed By: #### L 501.5425, L500.2500, L100.0100, L300.8000, L503.6620 ####[facility] [address] [place], [address] D-dimer measurement for deep venous thrombosisOrdered By: Fitz Deleon on 10-30-2024 D-Dimer Quantitative (PE/DVT) 0.94 FEU/ug/m High 0.27-0.[address] [facility] Comment on above: D-Dimer ELEVATED (>0 .49): Additional studies and clinicalassessments are indicated to conclude diagnosis of:Deep Vein Thrombosis (DVT) or Pulmonary Embolism (PE)CRITICAL VALUE CALLED TO YARELI MENENDEZ (ER)10/30/24 1511 Jeancarlos Marley.RESULTS READ BACK BY SAME. Emergency Department Summary on 10-30-2024 Emergency Department Summary Normal [facility] H AND P Exam - Hospitaliston 10-30-2024 H&P Exam - Hospitalist Normal [facility] L501.4020on 10-30-2024 TROPONIN-I HS 379 pg/mL Invalid Interpretation Code 3.0-54.[address] [facility] Comment on above: Result Comment: Crit ical Result(s) Called at: 17:48:37 10/30/2024 by: RIVERA CARVER. Results read back by same. Please Note: New Test Units and Gender Specific Reference Ranges. For more information see Policy Stat Procedure [place] High Sensitivity Troponin (TNIH) and attachments. Performed By: #### L 501.4020 ####[facility] [address] [place], [place], [address] L501.5425on 10-30-2024 TROPONIN-I HS 379 pg/mL Invalid Interpretation Code 3.0-54.[address] [facility] Comment on above: Order Comment: 1Y Result Comment: Crit ical Result(s) Called at: 15:11:40 10/30/2024 by:Joan MORAN. Results read back by same. Please Note: New Test Units and Gender Specific Reference Ranges. For more information see Policy Stat Procedure [place] High Sensitivity Troponin (TNIH) and attachments. Performed By: #### L 501.5425, L500.2500, L100.0100, L300.8000, L503.6620 ####[facility] [address] [place], [address] Troponin IOrdered By: Fitz richard on 10-30-2024 Troponin I High Sensitivity 379 pg/mL High 3.0-54.[address] [facility] Comment on above: Critical Result(s) C alled at: 17:48:37 10/30/2024 by: ZACHARY GARCIA TO BRENNA CARVER. Results read back by same. Please Note: New Test Units and Gender Specific Reference Ranges. For more information see Policy Stat Procedure [place] High Sensitivity Troponin (TNIH) and attachments. Culture, Blood (WB)on 2023 CUB Blood cultures x2, f rom two different sites No growth in 5 days. [address] [facility] Comment on above: Performed By: #### L 300.8000, L300.3900, M200.1000, L501.4020, L501.9520, L300.4310 ####[facility] [address] [place], [address] Absolute neutrophil countOrd ered By: Girish Herrera on 10-21-2024 Neutrophils (Bld) [#/Vol] 8.0 10*3/uL High 2.0-7.[address] [facility] Basic Metabolic Profile (BMP )on 10-21-2024 BUN/CRE 18.3 RATIO Normal 10-[address] [facility] Comment on above: Performed By: #### L 100.0100, L500.2500 ####[facility] [address] [place], [address] CA,Total 8.8 mg/dL Normal 8.5-10.[address] [facility] Comment on above: Performed By: #### L 100.0100, L500.2500 ####[facility] [address] [place], [address] Chloride [Moles/Vol] 111 mmol/L High 98-107 [facility] Comment on above: Performed By: #### L 100.0100, L500.2500 ####[facility] [address] [place], [address] CO2 [Moles/Vol] 26.0 mmol/L Normal 21.0-32.[address] [facility] Comment on above: Performed By: #### L 100.0100, L500.2500 ####[facility] [address] [place], [address] Creatinine [Mass/Vol] 1.15 mg/dL High 0.55-1.02 [facility] Comment on above: Result Comment: The validity of the calculated GFR GFRAA in patients over70 years has not been determined. Clinical correlation isessential. Performed By: #### L 100.0100, L500.2500 ####[facility] [address] [place], [address] ECRCL 50.15 ml/min Normal [facility] Comment on above: Performed By: #### L 100.0100, L500.2500 ####[facility] [address] [place], [address] EST GFR - AA 59 mL/min Low >[address] [facility] Comment on above: Result Comment: Afri can Algerian GFR Calc Performed By: #### L 100.0100, L500.2500 ####[facility] [address] [place], [address] GAP 7 Normal 5-[address] [facility] Comment on above: Performed By: #### L 100.0100, L500.2500 ####[facility] [address] [place], [address] GFR/1.73 sq M.predicted among non-blacks MDRD (S/P/Bld) [Vol rate/Area] 49 mL/min/{1.73_m2} Low >[address] [facility] Comment on above: Result Comment: Non- GFR Calc Performed By: #### L 100.0100, L500.2500 ####[facility] [address] [place], [address] Glucose [Mass/Vol] 123 mg/dL High 74-106 [facility] Comment on above: Result Comment: Fast ing Glucose result from 100 to 125 mg/dLsuggests IMPAIRED HOMEOSTASIS per A.D.A. criteria. Performed By: #### L 100.0100, L500.2500 ####[facility] [address] [place], [address] Potassium [Moles/Vol] 3.7 mmol/L Normal 3.5-5.1 [facility] Comment on above: Performed By: #### L 100.0100, L500.2500 ####[facility] [address] [place], [address] Sodium [Moles/Vol] 143 mmol/L Normal 136-145 [facility] Comment on above: Performed By: #### L 100.0100, L500.2500 ####[facility] [address] [place], [address] Urea nitrogen [Mass/Vol] 21 mg/dL High 7-[address] [facility] Comment on above: Performed By: #### L 100.0100, L500.2500 ####[facility] [address] [place], [address] Basophil percentageOrdered B y: Girish Herrera on 10-21-2024 Basophils/100 WBC (Bld) 0.3 % 0-1 [facility] Bedside Glucoseon 10-21-2024 FINGERSTICK GLU 176 mg/dL High 74-[address] [facility] Comment on above: Result Comment: RONNIE GEMENT OF PATIENT CARE PER NURSING PROTOCOL Performed By: #### L 501.080 ####[facility] [address] [place], [address] FINGERSTICK GLU 125 mg/dL High 74-[address] [facility] Center Comment on above: Result Comment: RONNIE GEMENT OF PATIENT CARE PER NURSING PROTOCOL Performed By: #### L 501.080 ####[facility] [address] [place], [address] Blood urea nitrogen (BUN)/cr eatinine ratioOrdered By: Girish Herrera on 10-21-2024 Urea nitrogen/Creatinine [Mass ratio] 18.3 mg/mg 10-[address] [facility] CBC W/Diff, Automatedon Absolute Lymph 1.86 X10 3/uL Normal 0.83-4.[address] [facility] Comment on above: Performed By: #### L 100.0100, L500.2500 ####[facility] [address] [place], [address] Absolute Neut 8.0 X10 3/uL High 2.0-7.[address] [facility] Comment on above: Performed By: #### L 100.0100, L500.2500 ####[facility] [address] [place], [address] Basophils/100 WBC (Bld) 0.3 % Normal 0-1 [facility] Comment on above: Performed By: #### L 100.0100, L500.2500 ####[facility] [address] [place], [address] Eosinophils/100 WBC (Bld) 4.1 % Normal 0-[address] [facility] Comment on above: Performed By: #### L 100.0100, L500.2500 ####[facility] [address] [place], [address] Erythrocyte distribution width (RBC) [Ratio] 14.6 % Normal 11.6-14.[address] [facility] Comment on above: Performed By: #### L 100.0100, L500.2500 ####[facility] [address] [place], [address] Hematocrit (Bld) [Volume fraction] 33.4 % Low 37-[address] [facility] Comment on above: Performed By: #### L 100.0100, L500.2500 ####[facility] [address] [place], [address] Hemoglobin (Bld) [Mass/Vol] 10.2 g/dL Low 12.0-15.[address] [facility] Comment on above: Performed By: #### L 100.0100, L500.2500 ####[facility] [address] [place], [address] IG% 0.900 Normal 0.0-0.[address] [facility] Comment on above: Result Comment: IG% - Immature Granulocytes (promyelocytes, myelocytes andmetamyelocytes) > 1% indicates that a LEFT SHIFT is Present. Performed By: #### L 100.0100, L500.2500 ####[facility] [address] [place], [address] Lymphocytes/100 WBC (Bld) 16.6 % Low 19-[address] [facility] Comment on above: Performed By: #### L 100.0100, L500.2500 ####[facility] [address] [place], [address] MCH (RBC) [Entitic mass] 28.5 pg Normal 27.0-32.[address] [facility] Comment on above: Performed By: #### L 100.0100, L500.2500 ####[facility] [address] [place], [address] MCHC (RBC) [Mass/Vol] 30.5 g/dL Low 32-36 [facility] Comment on above: Performed By: #### L 100.0100, L500.2500 ####[facility] [address] [place], [address] MCV (RBC) [Entitic vol] 93.3 fL Normal 81-99 [facility] Comment on above: Performed By: #### L 100.0100, L500.2500 ####[facility] [address] [place], [address] Monocytes/100 WBC (Bld) 7.2 % Normal 0-10 [facility] Comment on above: Performed By: #### L 100.0100, L500.2500 ####[facility] [address] [place], [address] Neutrophils/100 WBC (Bld) 70.9 % High 47-[address] [facility] Comment on above: Performed By: #### L 100.0100, L500.2500 ####[facility] [address] [place], [address] Nucleated RBC (Bld) [#/Vol] 0 10*3/uL Normal 0-[address] [facility] Comment on above: Performed By: #### L 100.0100, L500.2500 ####[facility] [address] [place], [address] Platelet mean volume (Bld) [Entitic vol] 9.1 fL Normal 6.2-12.[address] [facility] Comment on above: Performed By: #### L 100.0100, L500.2500 ####[facility] [address] [place], [address] Platelets (Bld) [#/Vol] 313 10*3/uL Normal 150-[address] [facility] Comment on above: Performed By: #### L 100.0100, L500.2500 ####[facility] [address] [place], [address] RBC (Bld) [#/Vol] 3.58 10*6/uL Low 4.2-5.4 [facility] Comment on above: Performed By: #### L 100.0100, L500.2500 ####[facility] [address] [place], [address] RDW SD 49.0 fl High 35.1-43.[address] [facility] Comment on above: Performed By: #### L 100.0100, L500.2500 ####[facility] [address] [place], [address] WBC (Bld) [#/Vol] 11.2 10*3/uL High 4.4-11.0 [facility] Comment on above: Performed By: #### L 100.0100, L500.2500 ####[facility] [address] [place], [place], [id number] Carbon dioxide measurementOr dered By: Girish Herrera on 10-21-2024 CO2 [Moles/Vol] 26.0 mmol/L 21.0-32.[address] [facility] Chloride measurementOrdered By: Girish Herrera on 10-21-2024 Chloride [Moles/Vol] 111 mmol/L High 98-107 [facility] Discharge Instructionon 12-0 Discharge Instruction Normal [facility] Eosinophil percentageOrdered By: Girish Herrera on 10-21-2024 Eosinophils/100 WBC (Bld) 4.1 % 0-[address] [facility] Erythrocyte distribution wid th ratioOrdered By: Girish Herrera on 10-21-2024 Erythrocyte distribution width (RBC) [Ratio] 14.6 % 11.6-14.[address] [facility] Erythrocyte distribution wid th standard deviationOrdered By: Girish Herrera on 10-21-2024 Erythrocyte distribution width (RBC) [Entitic vol] 49.0 fL High 35.1-43.[address] [facility] Estimated glomerular filtrat ion rate (GFR) AmericanOrdered By: Girish Herrera on 10-21-2024 Estimated GFR (MDRD) Amer 59 mL/min Low >[address] [facility] Comment on above: GFR Calc Estimation of creatinine mp aranceOrdered By: Girish Herrera on 10-21-2024 Estimated Creatinine Clearance Calc 50.15 ml/min [facility] Glomerular filtration rate ( GFR) estimationOrdered By: Girish Herrera on 10-21-2024 Estimated GFR (MDRD) Non-Af Amer 49 mL/min Low >[address] [facility] Comment on above: Non- GFR Calc Glucose measurementOrdered B y: Girish Herrera on 10-21-2024 Glucose [Mass/Vol] 123 mg/dL High 74-106 [facility] Comment on above: Fasting Glucose resu lt from 100 to 125 mg/dL suggests IMPAIRED HOMEOSTASIS per A.D.A. criteria. [facility] deOrdered By: Seth Garnica on 10-21-2024 Bedside Glucose (Misc Panel) 176 mg/dL High 74-[address] [facility] Comment on above: MANAGEMENT OF PATIEN T CARE PER NURSING PROTOCOL Hematocrit Auto (Bld) [Volum e fraction]Ordered By: Girish Herrera on 10-21-2024 Hematocrit (Bld) [Volume fraction] 33.4 % Low 37-[address] [facility] Hemoglobin measurementOrdere d By: Girish Herrera on 10-21-2024 Hemoglobin (Bld) [Mass/Vol] 10.2 g/dL Low 12.0-15.[address] [facility] Immature granulocytes/100 WB C Auto (Bld)Ordered By: Girish Herrera on 10-21-2024 Immature granulocytes/100 WBC (Bld) 0.900 % 0.0-0.[address] [facility] Comment on above: IG% - Immature Granu locytes (promyelocytes, myelocytes and metamyelocytes) > 1% indicates that a LEFT SHIFT is Present. Lymphocytes Auto (Unsp spec) [#/Vol]Ordered By: Girish Herrera on 10-21-2024 Lymphocytes (Bld) [#/Vol] 1.86 10*3/uL 0.83-4.[address] [facility] Lymphocytes/100 WBC Auto (Un sp spec)Ordered By: Girish Herrera on 10-21-2024 Lymphocytes/100 WBC (Bld) 16.6 % Low 19-[address] [facility] MCV (mean corpuscular volume ) determinationOrdered By: Girish Herrera on 10-21-2024 MCV (RBC) [Entitic vol] 93.3 fL 81-99 [facility] Mean corpuscular hemoglobin (MCH) determinationOrdered By: Girish Herrera on 10-21-2024 MCH (RBC) [Entitic mass] 28.5 pg 27.0-32.[address] [facility] Mean corpuscular hemoglobin concentration (MCHC) determinationOrdered By: Girish Herrera on 10-21-2024 MCHC (RBC) [Mass/Vol] 30.5 g/dL Low 32-36 [facility] Mean platelet volume determi nationOrdered By: Girish Herrera on 10-21-2024 Platelet mean volume (Bld) [Entitic vol] 9.1 fL 6.2-12.[address] [facility] Monocyte percentageOrdered B y: Girish Herrera on 10-21-2024 Monocytes/100 WBC (Bld) 7.2 % 0-10 [facility] Neutrophil percentageOrdered By: Girish Herrera on 10-21-2024 Neutrophils/100 WBC (Bld) 70.9 % High 47-[address] [facility] Nucleated red blood cell per centageOrdered By: Girish Herrera on 10-21-2024 Nucleated RBC/100 WBC (Bld) [Ratio] 0 % 0-[address] [facility] Platelet countOrdered By: Octavio Herrera on 10-21-2024 Platelets (Bld) [#/Vol] 313 10*3/uL 150-[address] [facility] Potassium measurementOrdered By: Girish Herrera on 10-21-2024 Potassium [Moles/Vol] 3.7 mmol/L 3.5-5.1 [facility] RBC Auto (Bld) [#/Vol]Ordere d By: Girish Herrera on 10-21-2024 RBC (Bld) [#/Vol] 3.58 10*6/uL Low 4.2-5.4 [facility] Serum anion gap measurementO rdered By: Girish Herrera on 10-21-2024 Anion gap [Moles/Vol] 7 mmol/L 5-15 [facility] Serum or plasma calcium ras urement (mass/volume)Ordered By: Girish Herrera on 10-21-2024 Calcium [Mass/Vol] 8.8 mg/dL 8.5-10.1 [facility] Serum or plasma creatinine m easurement (mass/volume)Ordered By: Girish Herrera on 10-21-2024 Creatinine [Mass/Vol] 1.15 mg/dL High 0.55-1.02 [facility] Comment on above: The validity of the calculated GFR & GFRAA in patients over 70 years has not been determined. Clinical correlation is essential. Serum or plasma urea nitroge n measurement (mass/volume)Ordered By: Girish Herrera on 10-21-2024 Urea nitrogen [Mass/Vol] 21 mg/dL High 7-[address] [facility] Sodium levelOrdered By: Nixon Herrera on 10-21-2024 Sodium [Moles/Vol] 143 mmol/L 136-145 [facility] Vancomycin trough [Mass/Vol] Ordered By: Girish Castro on 10-21-2024 Vancomycin Level Trough 11.7 ug/mL 5.0-15.0 [facility] Comment on above: VANCOMYCIN STANDARED DRUG THERAPY TROUGH LEVEL: 5.0 - 15.0 mg/L VANCOMYCIN HIGH INTENSITY THERAPY TROUGH LEVEL: 15.0 - 20.0 mg/L High Intensity therapy recommended for serious lifethreatening infections include:- Afurmvktcj-Pypfujyakqyr-Pqaigwqst (Ventilator/Healtcare Associated)-Sepsis PLEASE CONTACT PHARMACY SERVICES (#[id number]) FOR INTERPRETATIONOF RESULTS. Vancomycin, Trough Levelon 1 12-22-2023 VANCO, TROUGH 11.7 ug/mL Normal 5.0-15.[address] [facility] Comment on above: Order Comment: Comme nts: Trough to be drawn 30 mins prior to scheduled dose Result Comment: VANC OMYCIN STANDARED DRUG THERAPY TROUGH LEVEL: 5.0 - 15.0 mg/LVANCOMYCIN HIGH INTENSITY THERAPY TROUGH LEVEL: 15.0 - 20.0 mg/LHigh Intensity therapy recommended for serious lifethreatening infections include:- Ugfmqcugyv-Jewmfeacgaxh-Dinqncwgk (Ventilator/Healtcare Associated)-SepsisPLEASE CONTACT PHARMACY SERVICES (#9763) FOR INTERPRETATIONOF RESULTS. Performed By: #### L 501.8820 ####[facility] [address] [place], [place], [id number] White blood cell (WBC) count Ordered By: Girish Herrera on 10-21-2024 WBC (Bld) [#/Vol] 11.2 10*3/uL High 4.4-11.0 [facility] Basic Metabolic Profile (BMP )on 10-20-2024 BUN/CRE 24.3 RATIO High 10-[address] [facility] Comment on above: Performed By: #### L 100.0100, L500.2500 ####[facility] [address] [place], [address] CA,Total 8.6 mg/dL Normal 8.5-10.[address] [facility] Comment on above: Performed By: #### L 100.0100, L500.2500 ####[facility] [address] [place], [address] Chloride [Moles/Vol] 114 mmol/L High 98-107 [facility] Comment on above: Performed By: #### L 100.0100, L500.2500 ####[facility] [address] [place], [address] CO2 [Moles/Vol] 24.0 mmol/L Normal 21.0-32.[address] [facility] Comment on above: Performed By: #### L 100.0100, L500.2500 ####[facility] [address] [place], [address] Creatinine [Mass/Vol] 1.07 mg/dL High 0.55-1.02 [facility] Comment on above: Result Comment: The validity of the calculated GFR GFRAA in patients over70 years has not been determined. Clinical correlation isessential. Performed By: #### L 100.0100, L500.2500 ####[facility] [address] [place], [address] ECRCL 53.90 ml/min Normal [facility] Comment on above: Performed By: #### L 100.0100, L500.2500 ####[facility] [address] [place], [address] EST GFR - AA 64 mL/min Normal >[address] [facility] Comment on above: Result Comment: Afri can Algerian GFR Calc Performed By: #### L 100.0100, L500.2500 ####[facility] [address] [place], [address] GAP 6 Normal 5-[address] [facility] Comment on above: Performed By: #### L 100.0100, L500.2500 ####[facility] [address] [place], [address] GFR/1.73 sq M.predicted among non-blacks MDRD (S/P/Bld) [Vol rate/Area] 53 mL/min/{1.73_m2} Low >[address] [facility] Comment on above: Result Comment: Non- GFR Calc Performed By: #### L 100.0100, L500.2500 ####[facility] [address] [place], [address] Glucose [Mass/Vol] 118 mg/dL High 74-106 [facility] Comment on above: Result Comment: Fast ing Glucose result from 100 to 125 mg/dLsuggests IMPAIRED HOMEOSTASIS per A.D.A. criteria. Performed By: #### L 100.0100, L500.2500 ####[facility] [address] [place], [address] Potassium [Moles/Vol] 4.1 mmol/L Normal 3.5-5.1 [facility] Comment on above: Performed By: #### L 100.0100, L500.2500 ####[facility] [address] [place], [address] Sodium [Moles/Vol] 144 mmol/L Normal 136-145 [facility] Comment on above: Performed By: #### L 100.0100, L500.2500 ####[facility] [address] [place], [address] Urea nitrogen [Mass/Vol] 26 mg/dL High 7-[address] [facility] Comment on above: Performed By: #### L 100.0100, L500.2500 ####[facility] [address] [place], [address] Bedside Glucoseon 10-20-2024 FINGERSTICK GLU 156 mg/dL High 74-[address] [facility] Comment on above: Result Comment: RONNIE GEMENT OF PATIENT CARE PER NURSING PROTOCOL Performed By: #### L 501.080 ####[facility] [address] [place], [address] FINGERSTICK GLU 144 mg/dL High 74-[address] [facility] Comment on above: Result Comment: RONNIE GEMENT OF PATIENT CARE PER NURSING PROTOCOL Performed By: #### L 501.080 ####[facility] [address] [place], [address] FINGERSTICK GLU 114 mg/dL High 74-[address] [facility] Comment on above: Result Comment: RONNIE GEMENT OF PATIENT CARE PER NURSING PROTOCOL Performed By: #### L 501.080 ####[facility] [address] [place], [address] CBC W/Diff, Automatedon 12-0 6-2023 Absolute Lymph 2.09 X10 3/uL Normal 0.83-4.[address] [facility] Comment on above: Performed By: #### L 100.0100, L500.2500 ####[facility] [address] [place], [address] Absolute Neut 6.9 X10 3/uL Normal 2.0-7.[address] [facility] Comment on above: Performed By: #### L 100.0100, L500.2500 ####[facility] [address] [place], [address] Basophils/100 WBC (Bld) 0.2 % Normal 0-1 [facility] Comment on above: Performed By: #### L 100.0100, L500.2500 ####[facility] [address] [place], [address] Eosinophils/100 WBC (Bld) 4.4 % Normal 0-[address] [facility] Comment on above: Performed By: #### L 100.0100, L500.2500 ####[facility] [address] [place], [address] Erythrocyte distribution width (RBC) [Ratio] 14.9 % High 11.6-14.[address] [facility] Comment on above: Performed By: #### L 100.0100, L500.2500 ####[facility] [address] [place], [address] Hematocrit (Bld) [Volume fraction] 33.3 % Low 37-[address] [facility] Comment on above: Performed By: #### L 100.0100, L500.2500 ####[facility] [address] [place], [address] Hemoglobin (Bld) [Mass/Vol] 10.1 g/dL Low 12.0-15.[address] [facility] Comment on above: Performed By: #### L 100.0100, L500.2500 ####[facility] [address] [place], [address] IG% 0.900 Normal 0.0-0.[address] [facility] Comment on above: Result Comment: IG% - Immature Granulocytes (promyelocytes, myelocytes andmetamyelocytes) > 1% indicates that a LEFT SHIFT is Present. Performed By: #### L 100.0100, L500.2500 ####[facility] [address] [place], [address] Lymphocytes/100 WBC (Bld) 20.3 % Normal 19-[address] [facility] Comment on above: Performed By: #### L 100.0100, L500.2500 ####[facility] [address] [place], [address] MCH (RBC) [Entitic mass] 28.6 pg Normal 27.0-32.[address] [facility] Comment on above: Performed By: #### L 100.0100, L500.2500 ####[facility] [address] [place], [address] MCHC (RBC) [Mass/Vol] 30.3 g/dL Low 32-36 [facility] Comment on above: Performed By: #### L 100.0100, L500.2500 ####[facility] [address] [place], [address] MCV (RBC) [Entitic vol] 94.3 fL Normal 81-99 [facility] Comment on above: Performed By: #### L 100.0100, L500.2500 ####[facility] [address] [place], [address] Monocytes/100 WBC (Bld) 7.1 % Normal 0-10 [facility] Comment on above: Performed By: #### L 100.0100, L500.2500 ####[facility] [address] [place], [address] Neutrophils/100 WBC (Bld) 67.1 % Normal 47-[address] [facility] Comment on above: Performed By: #### L 100.0100, L500.2500 ####[facility] [address] [place], [address] Nucleated RBC (Bld) [#/Vol] 0.2 10*3/uL Normal 0-[address] [facility] Comment on above: Performed By: #### L 100.0100, L500.2500 ####[facility] [address] [place], [address] Platelet mean volume (Bld) [Entitic vol] 9.1 fL Normal 6.2-12.[address] [facility] Comment on above: Performed By: #### L 100.0100, L500.2500 ####[facility] [address] [place], [address] Platelets (Bld) [#/Vol] 298 10*3/uL Normal 150-[address] [facility] Comment on above: Performed By: #### L 100.0100, L500.2500 ####[facility] [address] [place], [address] RBC (Bld) [#/Vol] 3.53 10*6/uL Low 4.2-5.4 [facility] Comment on above: Performed By: #### L 100.0100, L500.2500 ####[facility] [address] [place], [address] RDW SD 51.3 fl High 35.1-43.[address] [facility] Comment on above: Performed By: #### L 100.0100, L500.2500 ####[facility] [address] [place], [address] WBC (Bld) [#/Vol] 10.3 10*3/uL Normal 4.4-11.0 [facility] Comment on above: Performed By: #### L 100.0100, L500.2500 ####[facility] [address] [place], [address] Basic Metabolic Profile (BMP )on 10-19-2024 BUN/CRE 27.6 RATIO High 10-[address] [facility] Comment on above: Performed By: #### L 501.2300, L100.0100, L501.5200, L500.2500 ####[facility] [address] [place], [address] CA,Total 8.7 mg/dL Normal 8.5-10.[address] [facility] Comment on above: Performed By: #### L 501.2300, L100.0100, L501.5200, L500.2500 ####[facility] [address] [place], [address] Chloride [Moles/Vol] 111 mmol/L High 98-107 [facility] Comment on above: Performed By: #### L 501.2300, L100.0100, L501.5200, L500.2500 ####[facility] [address] [place], [address] CO2 [Moles/Vol] 22.0 mmol/L Normal 21.0-32.[address] [facility] Comment on above: Performed By: #### L 501.2300, L100.0100, L501.5200, L500.2500 ####[facility] [address] [place], [address] Creatinine [Mass/Vol] 1.27 mg/dL High 0.55-1.02 [facility] Comment on above: Result Comment: The validity of the calculated GFR GFRAA in patients over70 years has not been determined. Clinical correlation isessential. Performed By: #### L 501.2300, L100.0100, L501.5200, L500.2500 ####[facility] [address] [place], [address] ECRCL 46.00 ml/min Normal [facility] Comment on above: Performed By: #### L 501.2300, L100.0100, L501.5200, L500.2500 ####[facility] [address] [place], [address] EST GFR - AA 53 mL/min Low >[address] [facility] Comment on above: Result Comment: Afri can Algerian GFR Calc Performed By: #### L 501.2300, L100.0100, L501.5200, L500.2500 ####[facility] [address] [place], [address] GAP 9 Normal 5-[address] [facility] Comment on above: Performed By: #### L 501.2300, L100.0100, L501.5200, L500.2500 ####[facility] [address] [place], [address] GFR/1.73 sq M.predicted among non-blacks MDRD (S/P/Bld) [Vol rate/Area] 44 mL/min/{1.73_m2} Low >[address] [facility] Comment on above: Result Comment: Non- GFR Calc Performed By: #### L 501.2300, L100.0100, L501.5200, L500.2500 ####[facility] [address] [place], [address] Glucose [Mass/Vol] 149 mg/dL High 74-106 [facility] Comment on above: Result Comment: Fast ing Glucose result greater than or equal to 126 mg/dLsuggests DIABETES MELLITUS per A.D.A. criteria. Performed By: #### L 501.2300, L100.0100, L501.5200, L500.2500 ####[facility] [address] [place], [address] Potassium [Moles/Vol] 4.4 mmol/L Normal 3.5-5.1 [facility] [place] Comment on above: Performed By: #### L 501.2300, L100.0100, L501.5200, L500.2500 ####[facility] [address] [place], [address] Sodium [Moles/Vol] 142 mmol/L Normal 136-145 [facility] Comment on above: Performed By: #### L 501.2300, L100.0100, L501.5200, L500.2500 ####[facility] [address] [place], [address] Urea nitrogen [Mass/Vol] 35 mg/dL High 7-[address] [facility] Comment on above: Performed By: #### L 501.2300, L100.0100, L501.5200, L500.2500 ####[facility] [address] [place], [address] Bedside Glucoseon 10-19-2024 FINGERSTICK GLU 134 mg/dL High 74-[address] [facility] Comment on above: Result Comment: RONNIE VELAZQUEZ OF PATIENT CARE PER NURSING PROTOCOL Performed By: #### L 501.080 ####[facility] [address] [place], [address] FINGERSTICK GLU 150 mg/dL High 74-[address] [facility] Comment on above: Result Comment: RONNIE GEMENT OF PATIENT CARE PER NURSING PROTOCOL Performed By: #### L 501.080 ####[facility] [address] [place], [address] FINGERSTICK GLU 177 mg/dL High 74-[address] [facility] Comment on above: Result Comment: RONNIE GEMENT OF PATIENT CARE PER NURSING PROTOCOL Performed By: #### L 501.080 ####[facility] [address] [place], [address] FINGERSTICK GLU 145 mg/dL High 74-[address] [facility] Comment on above: Result Comment: RONNIE GEMENT OF PATIENT CARE PER NURSING PROTOCOL Performed By: #### L 501.080 ####[facility] [address] [place], [address] CBC W/Diff, Automatedon 12-0 5-4 Absolute Lymph 2.22 X10 3/uL Normal 0.83-4.[address] [facility] Comment on above: Performed By: #### L 501.2300, L100.0100, L501.5200, L500.2500 ####[facility] [address] [place], [address] Absolute Neut 9.0 X10 3/uL High 2.0-7.[address] [facility] Comment on above: Performed By: #### L 501.2300, L100.0100, L501.5200, L500.2500 ####[facility] [address] [place], [address] Basophils/100 WBC (Bld) 0.2 % Normal 0-1 [facility] Comment on above: Performed By: #### L 501.2300, L100.0100, L501.5200, L500.2500 ####[facility] [address] [place], [address] Eosinophils/100 WBC (Bld) 1.3 % Normal 0-[address] [facility] Comment on above: Performed By: #### L 501.2300, L100.0100, L501.5200, L500.2500 ####[facility] [address] [place], [address] Erythrocyte distribution width (RBC) [Ratio] 14.9 % High 11.6-14.[address] [facility] Comment on above: Performed By: #### L 501.2300, L100.0100, L501.5200, L500.2500 ####[facility] [address] [place], [address] Hematocrit (Bld) [Volume fraction] 32.4 % Low 37-[address] [facility] Comment on above: Performed By: #### L 501.2300, L100.0100, L501.5200, L500.2500 ####[facility] [address] [place], [address] Hemoglobin (Bld) [Mass/Vol] 10.1 g/dL Low 12.0-15.[address] [facility] Comment on above: Performed By: #### L 501.2300, L100.0100, L501.5200, L500.2500 ####[facility] [address] [place], [address] IG% 1.400 High 0.0-0.[address] [facility] Comment on above: Result Comment: IG% - Immature Granulocytes (promyelocytes, myelocytes andmetamyelocytes) > 1% indicates that a LEFT SHIFT is Present. Performed By: #### L 501.2300, L100.0100, L501.5200, L500.2500 ####[facility] [address] [place], [address] Lymphocytes/100 WBC (Bld) 17.8 % Low 19-[address] [facility] Comment on above: Performed By: #### L 501.2300, L100.0100, L501.5200, L500.2500 ####[facility] [address] [place], [address] MCH (RBC) [Entitic mass] 28.8 pg Normal 27.0-32.[address] [facility] Comment on above: Performed By: #### L 501.2300, L100.0100, L501.5200, L500.2500 ####[facility] [address] [place], [address] MCHC (RBC) [Mass/Vol] 31.2 g/dL Low 32-36 [facility] [place] Comment on above: Performed By: #### L 501.2300, L100.0100, L501.5200, L500.2500 ####[facility] [address] [place], [address] MCV (RBC) [Entitic vol] 92.3 fL Normal 81-99 [facility] Comment on above: Performed By: #### L 501.2300, L100.0100, L501.5200, L500.2500 ####[facility] [address] [place], [address] Monocytes/100 WBC (Bld) 7.5 % Normal 0-10 [facility] Comment on above: Performed By: #### L 501.2300, L100.0100, L501.5200, L500.2500 ####[facility] [address] [place], [address] Neutrophils/100 WBC (Bld) 71.8 % High 47-[address] [facility] Comment on above: Performed By: #### L 501.2300, L100.0100, L501.5200, L500.2500 ####[facility] [address] [place], [address] Nucleated RBC (Bld) [#/Vol] 0.5 10*3/uL Normal 0-[address] [facility] Comment on above: Performed By: #### L 501.2300, L100.0100, L501.5200, L500.2500 ####[facility] [address] [place], [address] Platelet mean volume (Bld) [Entitic vol] 9.3 fL Normal 6.2-12.[address] [facility] Comment on above: Performed By: #### L 501.2300, L100.0100, L501.5200, L500.2500 ####[facility] [address] [place], [address] Platelets (Bld) [#/Vol] 337 10*3/uL Normal 150-[address] [facility] Comment on above: Performed By: #### L 501.2300, L100.0100, L501.5200, L500.2500 ####[facility] [address] [place], [address] RBC (Bld) [#/Vol] 3.51 10*6/uL Low 4.2-5.4 [facility] Comment on above: Performed By: #### L 501.2300, L100.0100, L501.5200, L500.2500 ####[facility] [address] [place], [address] RDW SD 49.6 fl High 35.1-43.[address] [facility] Comment on above: Performed By: #### L 501.2300, L100.0100, L501.5200, L500.2500 ####[facility] [address] [place], [address] WBC (Bld) [#/Vol] 12.5 10*3/uL High 4.4-11.0 [facility] Comment on above: Performed By: #### L 501.2300, L100.0100, L501.5200, L500.2500 ####[facility] [address] [place], [address] Magnesiumon 10-19-2024 Magnesium [Mass/Vol] 2.3 mg/dL Normal 1.6-2.6 [facility] Comment on above: Performed By: #### L 501.2300, L100.0100, L501.5200, L500.2500 ####[facility] [address] [place], [address] Magnesium measurementOrdered By: Girish Herrera on 10-19-2024 Magnesium [Mass/Vol] 2.3 mg/dL 1.6-2.6 [facility] Phosphoruson 10-19-2024 Phosphate [Mass/Vol] 2.7 mg/dL Normal 2.5-4.9 [facility] Comment on above: Performed By: #### L 501.2300, L100.0100, L501.5200, L500.2500 ####[facility] [address] [place], [address] Phosphorus measurementOrdere d By: Girish Herrera on 10-19-2024 Phosphorus Level 2.7 mg/dL 2.5-4.[address] [facility] RESPIRATORY PANEL MOLECULARo n 10-19-2024 RP PANEL Normal [facility] Comment on above: Performed By: #### M 100.638 ####[facility] [address] [place], [address] 12 Lead EKGon 10-18-2024 12 Lead EKG Normal [facility] Albumin to globulin ratioOrd ered By: Mark Mcfarland on 10-18-2024 Albumin/Globulin [Mass ratio] 0.9 {ratio} 0.9-2.[address] [facility] Amorphous sediment detection in urine sediment by light microscopyOrdered By: Girish Castro on 10-18-2024 Amorphous sediment LM Ql (Urine sed) 1+ [facility] Bedside Glucoseon 10-18-2024 FINGERSTICK GLU 166 mg/dL High 74-[address] [facility] Comment on above: Result Comment: RONNIE VELAZQUEZ OF PATIENT CARE PER NURSING PROTOCOL Performed By: #### L 501.080 ####[facility] [address] [place], [address] Bilirubin Test strip Ql (U)O rdered By: Girish Castro on 10-18-2024 Bilirubin Ql (U) 1 mg/dL High Negative [facility] Comment on above: COLOR OF URINE MAY A FFECT DIPSTICK RESULTS. Bilirubin, totalOrdered By: Mark Mcfarland on 10-18-2024 Bilirubin [Mass/Vol] 0.60 mg/dL 0.20-1.00 [facility] Comment on above: For patients on eltr ombopag therapy, use of Dimension [place] TBIL is not recommended. Blood cultureOrdered By: Kirk Castro on 10-18-2024 Bacteria identified Cx Nom (Bld) No growth in [address] [facility] Chest without Contraston Chest without Contrast Normal [facility] Comprehensive Metabolic Prof ilon 10-18-2024 Albumin [Mass/Vol] 3.1 g/dL Low 3.2-5.0 [facility] Comment on above: Performed By: #### L 500.4050 ####[facility] [address] [place], [address] Albumin/Globulin [Mass ratio] 0.9 {ratio} Normal 0.9-2.[address] [facility] Comment on above: Performed By: #### L 500.4050 ####[facility] [address] [place], [address] ALK P 74 U/L Normal 45-[address] [facility] Comment on above: Performed By: #### L 500.4050 ####[facility] [address] [place], [address] ALT [Catalytic activity/Vol] 36 U/L Normal 13-[address] [facility] Comment on above: Performed By: #### L 500.4050 ####[facility] [address] [place], [address] AST [Catalytic activity/Vol] 89 U/L High 15-[address] [facility] Comment on above: Performed By: #### L 500.4050 ####[facility] [address] [place], [address] Bilirubin [Mass/Vol] 0.60 mg/dL Normal 0.20-1.00 [facility] Comment on above: Result Comment: For patients on eltrombopag therapy, use of Dimension [place] TBIL is not recommended. Performed By: #### L 500.4050 ####[facility] [address] [place], [address] BUN/CRE 32.2 RATIO High 10-[address] [facility] Comment on above: Performed By: #### L 500.4050 ####[facility] [address] [place], [address] CA,Total 8.7 mg/dL Normal 8.5-10.[address] [facility] Comment on above: Performed By: #### L 500.4050 ####[facility] [address] [place], [address] Chloride [Moles/Vol] 113 mmol/L High 98-107 [facility] Comment on above: Performed By: #### L 500.4050 ####[facility] [address] [place], [address] CO2 [Moles/Vol] 21.0 mmol/L Normal 21.0-32.[address] [facility] Comment on above: Performed By: #### L 500.4050 ####[facility] [address] [place], [address] Creatinine [Mass/Vol] 1.46 mg/dL High 0.55-1.02 [facility] [place] Comment on above: Result Comment: The validity of the calculated GFR GFRAA in patients over70 years has not been determined. Clinical correlation isessential. Performed By: #### L 500.4050 ####[facility] [address] [place], [address] ECRCL 39.42 ml/min Normal [facility] Comment on above: Performed By: #### L 500.4050 ####[facility] [address] [place], [address] EST GFR - AA 45 mL/min Low >[address] [facility] Comment on above: Result Comment: Afri can Algerian GFR Calc Performed By: #### L 500.4050 ####[facility] [address] [place], [address] GAP 9 Normal 5-[address] [facility] Comment on above: Performed By: #### L 500.4050 ####[facility] [address] [place], [address] GFR/1.73 sq M.predicted among non-blacks MDRD (S/P/Bld) [Vol rate/Area] 37 mL/min/{1.73_m2} Low >[address] [facility] Comment on above: Result Comment: Non- GFR Calc Performed By: #### L 500.4050 ####[facility] [address] [place], [address] Globulin (S) [Mass/Vol] 3.6 g/dL Normal 2.2-4.2 [facility] Comment on above: Performed By: #### L 500.4050 ####[facility] [address] [place], [address] Glucose [Mass/Vol] 248 mg/dL High 74-106 [facility] Comment on above: Result Comment: Gluc ose result greater than or equal to 200 mg/dLsuggests DIABETES MELLITUS per A.D.A. criteria. Performed By: #### L 500.4050 ####[facility] [address] [place], [address] Potassium [Moles/Vol] 5.1 mmol/L Normal 3.5-5.1 [facility] [place] Comment on above: Performed By: #### L 500.4050 ####[facility] [address] [place], [address] Sodium [Moles/Vol] 143 mmol/L Normal 136-145 [facility] Comment on above: Performed By: #### L 500.4050 ####[facility] [address] [place], [address] T PROT 6.7 g/dL Normal 6.4-8.[address] [facility] Comment on above: Performed By: #### L 500.4050 ####[facility] [address] [place], [address] Urea nitrogen [Mass/Vol] 47 mg/dL High 7-[address] [facility] Comment on above: Performed By: #### L 500.4050 ####[facility] [address] [place], [address] Consultation - Cardiologyon 10-18-2024 Consultation - Cardiology Normal [facility] Consultation - Intensiviston 10-18-2024 Consultation - Acute Dialysis Registered Nurse Normal [facility] D-Dimer Quantitative (DVT/PE )on 10-18-2024 D-DIMER QUANT 0.98 FEU/ug/m Invalid Interpretation Code 0.27-0.[address] [facility] Comment on above: Order Comment: RESUL T(S) PREVIOUSLY REPORTED ON MANUAL REQUISITION DURINGDOWNTIME. Result Comment: D-Di olivia ELEVATED (>0.49): Additional studies and clinicalassessments are indicated to conclude diagnosis of:Deep Vein Thrombosis (DVT) or Pulmonary Embolism (PE)CRITICAL VALUE CALLED TO LAOVUYJZ83/04/24 0133 BY AYO CARVER.RESULTS READ BACK BY SAME. Performed By: #### L 300.8000, L300.3900, M200.1000, L501.4020, L501.9520, L300.4310 ####[facility] [address] [place], [address] D-dimer measurement for deep venous thrombosisOrdered By: Girish Castro on 10-18-2024 D-Dimer Quantitative (PE/DVT) 0.98 FEU/ug/m High 0.27-0.[address] [facility] Comment on above: D-Dimer ELEVATED (>0 .49): Additional studies and clinicalassessments are indicated to conclude diagnosis of:Deep Vein Thrombosis (DVT) or Pulmonary Embolism (PE)CRITICAL VALUE CALLED TO LKDNZISR89/04/24 0133 BY AYO CARVER.RESULTS READ BACK BY SAME. Echo Complete W/ Contraston 10-18-2024 Echo Complete W/ Contrast Normal [facility] Epithelial cells.squamous LM Ql (Urine sed)Ordered By: Girish Castro on 10-18-2024 Epithelial cells.squamous LM.HPF (Urine sed) [#/Area] 0 /[HPF] 5-[address] [facility] Glucose Ql (U)Ordered By: Octavio Castro on 10-18-2024 Glucose (U) [Mass/Vol] 50 mg/dL High Normal [facility] H AND P Exam - Hospitaliston 10-18-2024 H&P Exam - Hospitalist Normal [facility] International normalized rat io (INR) calculationOrdered By: Girish Castro on 10-18-2024 INR Coag (Bld) [Relative time] 1.1 {INR} [facility] Ketones Test strip Ql (U)Ord ered By: Girish Castro on 10-18-2024 Ketones Ql (U) 5 mg/dl High Negative [facility] L. pneumophila Ag Ql (U)Orde red By: Girish Castro on 10-18-2024 Legionella Antigen [facility] L501.4020on 10-18-2024 [place] [address] pg/mL Invalid Interpretation Code 3.0-54.[address] [facility] Comment on above: Order Comment: 'TROP ' Serial specimen #1, #2 or #3: 4 Result Comment: Crit ical Result(s) Called at: 10:01:49 10/18/2024 by: Ramy to Evy Craig. Results read back by same. Please Note: New Test Units and Gender Specific Reference Ranges. For more information see Policy Stat Procedure [place] High Sensitivity Troponin (TNIH) and attachments. Performed By: #### L 501.4020 ####[facility] [address] [place], [address] [place] [address] pg/mL Invalid Interpretation Code 3.0-54.[address] [facility] Comment on above: Order Comment: 'TROP ' Serial specimen #1, #2 or #3: 3 Result Comment: CRIT ICAL VALUE CALLED TO MILTON DHEDUG59/04/24 0943 Bill Chambers.RESULTS READ BACK BY SAME. Please Note: New Test Units and Gender Specific Reference Ranges. For more information see Policy Stat Procedure [place] High Sensitivity Troponin (TNIH) and attachments. Performed By: #### L 300.8000, L300.3900, M200.1000, L501.4020, L501.9520, L300.4310 ####[facility] [address] [place], [address] TROPONIN-I HS 1119 pg/mL Invalid Interpretation Code 3.0-54.[address] [facility] Comment on above: Order Comment: 'TROP ' Serial specimen #1, #2 or #3: 2 Result Comment: Plea se Note: New Test Units and Gender Specific Reference Ranges. For more information see Policy Stat Procedure [place] High Sensitivity Troponin (TNIH) and attachments. Performed By: #### L 501.4020 ####[facility] [address] [place], [address] Laboratory - Chemistry and C hemistry - challengeOrdered By: Mark Mcfarland on 10-18-2024 AST [Catalytic activity/Vol] 89 U/L High 15-[address] [facility] Lactic Acidon 10-18-2024 Lactate [Moles/Vol] 4.1 mmol/L Invalid Interpretation Code 0.4-1.[address] [facility] Comment on above: Order Comment: RESUL T(S) PREVIOUSLY REPORTED ON MANUAL REQUISITION DURINGDOWNTIME.N Result Comment: CRIT ICAL VALUE CALLED TO NIDIA GRACIA10/18/24 0325 AYO CARVER.RESULTS READ BACK BY SAME. Performed By: #### L 503.6005 ####[facility] [address] [place], [place], [address] Lactic acid measurementOrder ed By: Lucas Cui on 10-18-2024 Lactate [Moles/Vol] 4.1 mmol/L High 0.4-2.0 [facility] Comment on above: CRITICAL VALUE CHAVARRIA D TO NIDIA GRACIA10/18/24 0325 AYO CARVER.RESULTS READ BACK BY SAME. Legionella Antigen Urineon 1 12-19-[address]GU [address] [facility] Comment on above: Performed By: #### M 300.4500, L400.0001, M300.4600 ####[facility] [address] [place], [place], [address] M100.678on 10-18-2024 M100.678 Pending SARS-CoV-2 (COVID 19) Negative INFLUENZA A Negative INFLUENZA B Negative RSV PCR Negative Normal [facility] Comment on above: Performed By: #### M 100.678 ####[facility] [address] [place], [place], [address] Microscopic analysis of urin e for red blood cells (RBC)Ordered By: Girish Castro on 10-18-2024 Urine RBC 0 SEEN /hpf 0-[address] [facility] Mucus LM Ql (Urine sed)Order ed By: Girish Castro on 10-18-2024 Mucus Ql (Urine sed) 0 SEEN /hpf [facility] Nitrite Test strip Ql (U)Ord ered By: Girish Castro on 10-18-2024 Nitrite Ql (U) Negative Negative [facility] Partial Thromboplast Timeon 10-18-2024 aPTT Coag (Bld) [Time] 50.4 s High 24.1-36.2 [facility] Comment on above: Performed By: #### L 300.4310 ####[facility] [address] [place], [address] aPTT Coag (Bld) [Time] 21.6 s Low 24.1-36.2 [facility] Comment on above: Order Comment: RESUL T(S) PREVIOUSLY REPORTED ON MANUAL REQUISITION DURINGDOWNTIME. Performed By: #### L 300.8000, L300.3900, M200.1000, L501.4020, L501.9520, L300.4310 ####[facility] [address] [place], [address] Protein Test strip Ql (U)Ord ered By: Girish Castro on 10-18-2024 Protein Ql (U) 100 mg/dl High Negative [facility] Prothrombin Time w/INRon INR Coag (PPP) [Relative time] 1.1 {INR} Normal [facility] Comment on above: Order Comment: RESUL T(S) PREVIOUSLY REPORTED ON MANUAL REQUISITION DURINGDOWNTIME. Performed By: #### L 300.8000, L300.3900, M200.1000, L501.4020, L501.9520, L300.4310 ####[facility] [address] [place], [address] PT Coag (PPP) [Time] 13.8 s Normal 11.7-14.9 [facility] Comment on above: Order Comment: RESUL T(S) PREVIOUSLY REPORTED ON MANUAL REQUISITION DURINGDOWNTIME. Performed By: #### L 300.8000, L300.3900, M200.1000, L501.4020, L501.9520, L300.4310 ####[facility] [address] [place], [address] Prothrombin timeOrdered By: Girish Castro on 10-18-2024 PT Coag (PPP) [Time] 13.8 s 11.7-14.9 [facility] Respiratory pathogens DNA an d RNA panel KATYA+probe (Resp)Ordered By: Mark Mcfarland on 10-18-2024 Respiratory Panel (PCR) [facility] Serum globulin measurementOr dered By: Mark Mcfarland on 10-18-2024 Globulin (S) [Mass/Vol] 3.6 g/dL 2.2-4.2 [facility] Serum or plasma alanine price otransferase (ALT) measurementOrdered By: Mark Mcfarland on 10-18-2024 ALT [Catalytic activity/Vol] 36 U/L 13-[address] [facility] Serum or plasma albumin ras urement (mass/volume)Ordered By: Mark Mcfarland on 10-18-2024 Albumin [Mass/Vol] 3.1 g/dL Low 3.2-5.0 [facility] Serum or plasma alkaline destini sphatase measurementOrdered By: Mark Mcfarland on 10-18-2024 ALP [Catalytic activity/Vol] 74 U/L 45-[address] [facility] Strep pneumoniae Antig(UR,CS F)on 10-18-2024 STPAG Normal [facility] Comment on above: Performed By: #### M 300.4500, L400.0001, M300.4600 ####[facility] [address] [facility] [place], [place], [id number] Streptococcus pneumoniae ant igen assayOrdered By: Girish Castro on 10-18-2024 Streptococcus pneumoniae Antigen (M [facility] TSH QnOrdered By: Girish solano on 10-18-2024 Thyroid Stimulating Hormone (TSH) 0.224 uIU/mL Low 0.358-3.[address] [facility] Thyroid Stim Hormone (TSH)on 10-18-2024 TSH 0.224 uIU/mL Low 0.358-3.[address] [facility] Comment on above: Order Comment: 'TROP ' Serial specimen #1, #2 or #3: 3 Performed By: #### L 300.8000, L300.3900, M200.1000, L501.4020, L501.9520, L300.4310 ####[facility] [address] [place], [place], [id number] Total proteinOrdered By: Michel on 10-18-2024 Protein [Mass/Vol] 6.7 g/dL 6.4-8.2 [facility] Transitional cells LM Ql (Ur ine sed)Ordered By: Girish Castro on 10-18-2024 Urine Transitional Epithelial Cells 5-10 SEEN /hpf 0-[address] [facility] Troponin IOrdered By: Ziggy Ramirez on 10-18-2024 Troponin I High Sensitivity 75149 pg/mL High 3.0-54.[address] [facility] Comment on above: Critical Result(s) C alled at: 10:01:49 10/18/2024 by: Erica De León to Evy Craig. Results read back by same. Please Note: New Test Units and Gender Specific Reference Ranges. For more information see Policy Stat Procedure [place] High Sensitivity Troponin (TNIH) and attachments. Urinalysis, Completeon 10-18 AMORPHOUS 1+ Normal [facility] Comment on above: Order Comment: RONNI CTOR TO SPECIFY Performed By: #### M 300.4500, L400.0001, M300.4600 ####[facility] [address] [place], [address] BACTERIA 2+ /hpf Normal None Seen [facility] Comment on above: Order Comment: RONNI CTOR TO SPECIFY Performed By: #### M 300.4500, L400.0001, M300.4600 ####[facility] [address] [place], [address] EPI,TRANSITION 5-10 SEEN Normal 0-[address] [facility] Comment on above: Order Comment: RONNI CTOR TO SPECIFY Performed By: #### M 300.4500, L400.0001, M300.4600 ####[facility] [address] [place], [address] WBC 10-25 SEEN Normal 0-[address] [place] [address] Comment on above: Order Comment: RONNI CTOR TO SPECIFY Performed By: #### M 300.4500, L400.0001, M300.4600 ####[facility] [address] [place], [address] BILIRUBIN URINE 1 mg/dL Abnormal Negative [facility] Comment on above: Order Comment: COLLE CTOR TO SPECIFY Result Comment: COLO R OF URINE MAY AFFECT DIPSTICK RESULTS. Performed By: #### M 300.4500, L400.0001, M300.4600 ####[facility] [address] [place], [address] Clarity (U) Cloudy Normal Clear [facility] Comment on above: Order Comment: [facility] TO SPECIFY Performed By: #### M 300.4500, L400.0001, M300.4600 ####[facility] [address] [place], [address] Color (U) Yellow Normal Yellow [facility] Comment on above: Order Comment: RONNI CTOR TO SPECIFY Performed By: #### M 300.4500, L400.0001, M300.4600 ####[facility] [address] [place], [address] GLUCOSE, UR 50 mg/dl Abnormal Normal [facility] Comment on above: Order Comment: [facility] TO SPECIFY Performed By: #### M 300.4500, L400.0001, M300.4600 ####[facility] [address] [place], [address] KETONE UR 5 mg/dl Abnormal Negative [facility] Comment on above: Order Comment: [facility] TO SPECIFY Performed By: #### M 300.4500, L400.0001, M300.4600 ####[facility] [address] [place], [address] LEUK ESTERASE 25 /ul Abnormal Negative [facility] Comment on above: Order Comment: [facility] TO SPECIFY Performed By: #### M 300.4500, L400.0001, M300.4600 ####[facility] [address] [place], [address] Nitrite Ql (U) Negative Normal Negative [facility] Comment on above: Order Comment: RONNI CTOR TO SPECIFY Performed By: #### M 300.4500, L400.0001, M300.4600 ####[facility] [address] [place], [address] OCCULT BLOOD-UR Negative Normal Negative [facility] Comment on above: Order Comment: COLLE CTOR TO SPECIFY Performed By: #### M 300.4500, L400.0001, M300.4600 ####[facility] [address] [place], [address] pH UR 5.0 Normal 5.0 - 8.[address] [facility] Comment on above: Order Comment: [facility] TO SPECIFY Performed By: #### M 300.4500, L400.0001, M300.4600 ####[facility] [address] [place], [address] PROT DIPSTX 100 mg/dl Abnormal Negative [facility] Comment on above: Order Comment: [facility] TO SPECIFY Performed By: #### M 300.4500, L400.0001, M300.4600 ####[facility] [address] [place], [address] SP.GR. DIPSTX 1.025 Normal 1.002-1.[address] [facility] Comment on above: Order Comment: RONNI CTOR TO SPECIFY Performed By: #### M 300.4500, L400.0001, M300.4600 ####[facility] [address] [place], [address] UROBILI 1 mg/dl Abnormal Normal [facility] Comment on above: Order Comment: RONNI CTOR TO SPECIFY Performed By: #### M 300.4500, L400.0001, M300.4600 ####[facility] [address] [place], [address] EPI,SQUAMOUS 0 SEEN Normal 5-[address] [facility] Comment on above: Order Comment: [facility] TO SPECIFY Performed By: #### M 300.4500, L400.0001, M300.4600 ####[facility] [address] [place], [address] Mucus Ql (Urine sed) 0 SEEN Normal [facility] Comment on above: Order Comment: RONNI CTOR TO SPECIFY Performed By: #### M 300.4500, L400.0001, M300.4600 ####[facility] [address] [place], [address] RBC 0 SEEN Normal 0-[address] [facility] Comment on above: Order Comment: RONNI CTOR TO SPECIFY Performed By: #### M 300.4500, L400.0001, M300.4600 ####[facility] [address] [place], [address] Urine blood detectionOrdered By: Girish Castro on 10-18-2024 Urine Occult Blood Negative Negative [facility] Urine clarityOrdered By: Kirk Castro on 10-18-2024 Clarity (U) Cloudy Clear [facility] Urine color determinationOrd ered By: Girish Castro on 10-18-2024 Color (U) Yellow Yellow [facility] Urine leukocyte esterase det ection by dipstickOrdered By: Girish Castro on 10-18-2024 Leukocyte esterase Test strip Ql (U) 25 /ul High Negative [facility] Urine pHOrdered By: Girish esposito on 10-18-2024 pH (U) 5.0 [pH] 5.0 - 8.[address] [facility] Urine sediment bacteria coun t by microscopy (number/high power field)Ordered By: Girish Castro on 10-18-2024 Bacteria LM.HPF (Urine sed) [#/Area] 2 /[HPF] None Seen [facility] Urine specific gravity measu rementOrdered By: Girish Castro on 10-18-2024 Specific gravity (U) [Rel density] 1.025 1.002-1.[address] [facility] Urobilinogen Ql (U)Ordered B y: Girish Castro on 10-18-2024 Urobilinogen (U) [Mass/Vol] 1 mg/dL High Normal [facility] White blood cell countOrdere d By: Girish Castro on 10-18-2024 Urine WBC 10-25 SEEN /hpf 0-[address] [facility] aPTT Coag (PPP) [Time]Ordere d By: Girish Castro on 10-18-2024 aPTT Coag (Bld) [Time] 50.4 s High 24.1-36.2 [facility] 12 Lead EKGon 10-17-2024 12 Lead EKG Normal [facility] Arterial patency Wrist arter y --pre arterial punctureOrdered By: Lucas Cui on 10-17-2024 Carmine Test Positive [facility] BNP (brain natriuretic pepti de measurement)Ordered By: Lucas Cui on 10-17-2024 Natriuretic peptide B (Bld) [Mass/Vol] 799.9 pg/mL High 0-[address] [facility] BNP,B-Type NATRIURETIC PEPTI Ting 10-17-2024 Natriuretic peptide B (Bld) [Mass/Vol] 799.9 pg/mL High 0-[address] [facility] Comment on above: Performed By: #### L 503.6620 ####[facility] [address] [place], [address] Base excess Calc (BldV) [Mol es/Vol]Ordered By: Lucas Cui on 10-17-2024 Blood Gas Base Excess -8 mmol/L Low -2-2 [facility] Basic Metabolic Profile (BMP )on 10-17-2024 BUN/CRE 27.5 RATIO High 10-[address] [facility] Comment on above: Order Comment: 'TROP ' Serial specimen #1, #2 or #3: 1 Performed By: #### L 501.4020, L500.3400, L500.2500 ####[facility] [address] [place], [address] CA,Total 9.0 mg/dL Normal 8.5-10.[address] [facility] Comment on above: Order Comment: 'TROP ' Serial specimen #1, #2 or #3: 1 Performed By: #### L 501.4020, L500.3400, L500.2500 ####[facility] [address] [place], [address] Chloride [Moles/Vol] 111 mmol/L High 98-107 [facility] Comment on above: Order Comment: 'TROP ' Serial specimen #1, #2 or #3: 1 Performed By: #### L 501.4020, L500.3400, L500.2500 ####[facility] [address] [place], [address] CO2 [Moles/Vol] 20.0 mmol/L Low 21.0-32.[address] [facility] Comment on above: Order Comment: 'TROP ' Serial specimen #1, #2 or #3: 1 Performed By: #### L 501.4020, L500.3400, L500.2500 ####[facility] [address] [place], [address] Creatinine [Mass/Vol] 1.71 mg/dL High 0.55-1.02 [facility] Comment on above: Order Comment: 'TROP ' Serial specimen #1, #2 or #3: 1 Result Comment: The validity of the calculated GFR GFRAA in patients over70 years has not been determined. Clinical correlation isessential. Performed By: #### L 501.4020, L500.3400, L500.2500 ####[facility] [address] [place], [address] ECRCL 34.85 ml/min Normal [facility] Comment on above: Order Comment: 'TROP ' Serial specimen #1, #2 or #3: 1 Performed By: #### L 501.4020, L500.3400, L500.2500 ####[facility] [address] [place], [address] EST GFR - AA 38 mL/min Low >[address] [facility] Comment on above: Order Comment: 'TROP ' Serial specimen #1, #2 or #3: 1 Result Comment: Afri can [place] GFR Calc Performed By: #### L 501.4020, L500.3400, L500.2500 ####[facility] [address] [place], [address] GAP 11 Normal 5-[address] [facility] Comment on above: Order Comment: 'TROP ' Serial specimen #1, #2 or #3: 1 Performed By: #### L 501.4020, L500.3400, L500.2500 ####[facility] [address] [place], [address] GFR/1.73 sq M.predicted among non-blacks MDRD (S/P/Bld) [Vol rate/Area] 31 mL/min/{1.73_m2} Low >[address] [facility] Comment on above: Order Comment: 'TROP ' Serial specimen #1, #2 or #3: 1 Result Comment: Non- GFR Calc Performed By: #### L 501.4020, L500.3400, L500.2500 ####[facility] [address] [place], [address] Glucose [Mass/Vol] 405 mg/dL High 74-106 [facility] Comment on above: Order Comment: 'TROP ' Serial specimen #1, #2 or #3: 1 Result Comment: Gluc ose result greater than or equal to 200 mg/dLsuggests DIABETES MELLITUS per A.D.A. criteria. Performed By: #### L 501.4020, L500.3400, L500.2500 ####[facility] [address] [place], [address] Potassium [Moles/Vol] 5.4 mmol/L High 3.5-5.1 [facility] Comment on above: Order Comment: 'TROP ' Serial specimen #1, #2 or #3: 1 Performed By: #### L 501.4020, L500.3400, L500.2500 ####[facility] [address] [place], [address] Sodium [Moles/Vol] 142 mmol/L Normal 136-145 [facility] Comment on above: Order Comment: 'TROP ' Serial specimen #1, #2 or #3: 1 Performed By: #### L 501.4020, L500.3400, L500.2500 ####[facility] [address] [place], [address] Urea nitrogen [Mass/Vol] 47 mg/dL High 7-[address] [facility] Comment on above: Order Comment: 'TROP ' Serial specimen #1, #2 or #3: 1 Performed By: #### L 501.4020, L500.3400, L500.2500 ####[facility] [address] [place], [address] Bilirubin directOrdered By: Lucas Cui on 10-17-2024 Bilirubin.direct [Mass/Vol] 0.22 mg/dL 0.00-0.[address] [facility] CARMINE TEST Positive Normal [facility] Comment on above: Performed By: #### L 9000.0800 ####[facility] [address] [place], [address] Base excess Calc (Bld) [Moles/Vol] -8 mmol/L Low -2 to +[address] [facility] Comment on above: Performed By: #### L 9000.0800 ####[facility] [address] [place], [address] Blood Gas Type ART Normal [facility] Comment on above: Performed By: #### L 9000.0800 ####[facility] [address] [place], [address] CO2 [Moles/Vol] 20 mmol/L Normal [facility] Comment on above: Performed By: #### L 9000.0800 ####[facility] [address] [place], [address] Comment 14/6 14 40% Normal [facility] Comment on above: Performed By: #### L 0.0800 ####[facility] [address] [place], [address] FI02 40.[address] [facility] Comment on above: Performed By: #### L 9000.0800 ####[facility] [address] [place], [address] HCO3 (Bld) [Moles/Vol] 19.1 mmol/L Low 22-26 [facility] Comment on above: Performed By: #### L 9000.0800 ####[facility] [address] [place], [address] Mode NIV Normal [facility] Comment on above: Performed By: #### L 9000.0800 ####[facility] [address] [place], [address] O2 Delivery Dev BiPAP Normal [facility] Comment on above: Performed By: #### L 0.0800 ####[facility] [address] [place], [address] pCO2 44.7 mmHg Normal 35-[address] [facility] Comment on above: Performed By: #### L 9000.0800 ####[facility] [address] [place], [address] pH (Bld) 7.24 [pH] Low 7.35-7.[address] [facility] Comment on above: Performed By: #### L 9000.0800 ####[facility] [address] [place], [address] PO2 84 mmHG Normal 75-[address] [facility] Comment on above: Performed By: #### L 9000.0800 ####[facility] [address] [place], [address] [address] [facility] Comment on above: Performed By: #### L 9000.0800 ####[facility] [address] [place], [address] SITE L Radial Normal [facility] Comment on above: Performed By: #### L 9000.0800 ####[facility] [address] [place], [address] SO2 94 Low 95-[address] [facility] Comment on above: Performed By: #### L 9000.0800 ####[facility] [address] [place], [address] Blood bicarbonate measuremen tOrdered By: Lucas Cui on 10-17-2024 Blood Gas Bicarbonate Actual 19.1 mmol/L Low 22-[address] [facility] Blood cultureOrdered By: Kirk Castro on 10-17-2024 Bacteria identified Cx Nom (Bld) No growth in [address] [facility] CBC W/Diff, Automatedon 12-0 Absolute Lymph 1.93 X10 3/uL Normal 0.83-4.[address] [facility] Comment on above: Performed By: #### L 100.0100, L503.6005 ####[facility] [address] [place], [address] Absolute Neut 14.8 X10 3/uL High 2.0-7.[address] [facility] Comment on above: Performed By: #### L 100.0100, L503.6005 ####[facility] [address] [place], [address] Basophils/100 WBC (Bld) 0.3 % Normal 0-1 [facility] Comment on above: Performed By: #### L 100.0100, L503.6005 ####[facility] [address] [place], [address] Eosinophils/100 WBC (Bld) 0.0 % Normal 0-[address] [facility] Comment on above: Performed By: #### L 100.0100, L503.6005 ####[facility] [address] [place], [address] Erythrocyte distribution width (RBC) [Ratio] 14.7 % High 11.6-14.[address] [facility] Comment on above: Performed By: #### L 100.0100, L503.6005 ####[facility] [address] [place], [address] Hematocrit (Bld) [Volume fraction] 38.5 % Normal 37-[address] [facility] Comment on above: Performed By: #### L 100.0100, L503.6005 ####[facility] [address] [place], [address] Hemoglobin (Bld) [Mass/Vol] 11.8 g/dL Low 12.0-15.[address] [facility] Comment on above: Performed By: #### L 100.0100, L503.6005 ####[facility] [address] [place], [address] IG% 2.600 High 0.0-0.[address] [facility] Comment on above: Result Comment: IG% - Immature Granulocytes (promyelocytes, myelocytes andmetamyelocytes) > 1% indicates that a LEFT SHIFT is Present. Performed By: #### L 100.0100, L503.6005 ####[facility] [address] [place], [address] Lymphocytes/100 WBC (Bld) 10.9 % Low 19-[address] [facility] Comment on above: Performed By: #### L 100.0100, L503.6005 ####[facility] [address] [place], [address] MCH (RBC) [Entitic mass] 28.8 pg Normal 27.0-32.[address] [facility] Comment on above: Performed By: #### L 100.0100, L503.6005 ####[facility] [address] [place], [address] MCHC (RBC) [Mass/Vol] 30.6 g/dL Low 32-36 [facility] Comment on above: Performed By: #### L 100.0100, L503.6005 ####[facility] [address] [place], [address] MCV (RBC) [Entitic vol] 93.9 fL Normal 81-99 [facility] Comment on above: Performed By: #### L 100.0100, L503.6005 ####[facility] [address] [place], [address] Monocytes/100 WBC (Bld) 2.8 % Normal 0-10 [facility] Comment on above: Performed By: #### L 100.0100, L503.6005 ####[facility] [address] [place], [address] Neutrophils/100 WBC (Bld) 83.4 % High 47-[address] [facility] Comment on above: Performed By: #### L 100.0100, L503.6005 ####[facility] [address] [place], [address] Nucleated RBC (Bld) [#/Vol] 0.6 10*3/uL Normal 0-[address] [facility] Comment on above: Performed By: #### L 100.0100, L503.6005 ####[facility] [address] [place], [address] Platelet mean volume (Bld) [Entitic vol] 9.2 fL Normal 6.2-12.[address] [facility] Comment on above: Performed By: #### L 100.0100, L503.6005 ####[facility] [address] [place], [address] Platelets (Bld) [#/Vol] 469 10*3/uL High 150-[address] [facility] Comment on above: Performed By: #### L 100.0100, L503.6005 ####[facility] [address] [place], [address] RBC (Bld) [#/Vol] 4.10 10*6/uL Low 4.2-5.4 [facility] Comment on above: Performed By: #### L 100.0100, L503.6005 ####[facility] [address] [place], [address] RDW SD 50.4 fl High 35.1-43.[address] [facility] Comment on above: Performed By: #### L 100.0100, L503.6005 ####[facility] [address] [place], [address] WBC (Bld) [#/Vol] 17.7 10*3/uL High 4.4-11.0 [facility] Comment on above: Performed By: #### L 100.0100, L503.6005 ####[facility] [address] [place], [address] Chest 1 View (Portable)on Chest 1 View (Portable) Normal [facility] Determination of fraction of inspired oxygenOrdered By: Lucas Cui on 10-17-2024 Blood Gas Oxygen Percent 40.[address] [facility] Emergency Department Summary on 10-17-2024 Emergency Department Summary Normal [facility] Influenza virus A and B and SARS-CoV-2 (COVID-19) and Respiratory syncytial virus RNAOrdered By: Lucas Cui on 10-17-2024 SARS-CoV-2 (COVID-19) RNA KATYA+probe Ql (Unsp spec) [facility] L501.4020on 10-17-2024 TROPONIN-I HS 1103 pg/mL Invalid Interpretation Code 3.0-54.[address] [facility] Comment on above: Order Comment: 'TROP ' Serial specimen #1, #2 or #3: 1 Result Comment: Crit ical Result(s) Called at: 23:31:06 10/17/2024 by:Elmira Marks to LSparr. Results read back by same. Please Note: New Test Units and Gender Specific Reference Ranges. For more information see Policy Stat Procedure [place] High Sensitivity Troponin (TNIH) and attachments. Performed By: #### L 501.4020, L500.3400, L500.2500 ####[facility] [address] [place], [address] Lactic Acidon 10-17-2024 Lactate [Moles/Vol] 4.9 mmol/L Invalid Interpretation Code 0.4-1.[address] [facility] Comment on above: Order Comment: Y Result Comment: Crit ical Result(s) Called at: 23:30:50 10/17/2024 by:Elmira Marks to LSparr. Results read back by same. Performed By: #### L 100.0100, L503.6005 ####[facility] [address] [place], [address] Liver Profileon 10-17-2024 Albumin [Mass/Vol] 3.8 g/dL Normal 3.2-5.0 [facility] Comment on above: Order Comment: 'TROP ' Serial specimen #1, #2 or #3: 1 Performed By: #### L 501.4020, L500.3400, L500.2500 ####[facility] [address] [place], [address] ALK P 91 U/L Normal 45-[address] [facility] Comment on above: Order Comment: 'TROP ' Serial specimen #1, #2 or #3: 1 Performed By: #### L 501.4020, L500.3400, L500.2500 ####[facility] [address] [place], [address] ALT [Catalytic activity/Vol] 33 U/L Normal 13-[address] [facility] Comment on above: Order Comment: 'TROP ' Serial specimen #1, #2 or #3: 1 Performed By: #### L 501.4020, L500.3400, L500.2500 ####[facility] [address] [place], [address] AST [Catalytic activity/Vol] 27 U/L Normal 15-[address] [facility] Comment on above: Order Comment: 'TROP ' Serial specimen #1, #2 or #3: 1 Performed By: #### L 501.4020, L500.3400, L500.2500 ####[facility] [address] [place], [address] Bilirubin [Mass/Vol] 0.50 mg/dL Normal 0.20-1.00 [facility] Comment on above: Order Comment: 'TROP ' Serial specimen #1, #2 or #3: 1 Result Comment: For patients on eltrombopag therapy, use of Dimension [place] TBIL is not recommended. Performed By: #### L 501.4020, L500.3400, L500.2500 ####[facility] [address] [place], [address] Bilirubin.direct [Mass/Vol] 0.22 mg/dL Normal 0.00-0.[address] [facility] Comment on above: Order Comment: 'TROP ' Serial specimen #1, #2 or #3: 1 Performed By: #### L 501.4020, L500.3400, L500.2500 ####[facility] [address] [place], [address] Globulin (S) [Mass/Vol] 4.1 g/dL Normal 2.2-4.2 [facility] Comment on above: Order Comment: 'TROP ' Serial specimen #1, #2 or #3: 1 Performed By: #### L 501.4020, L500.3400, L500.2500 ####[facility] [address] [place], [address] T PROT 7.9 g/dL Normal 6.4-8.[address] [facility] Comment on above: Order Comment: 'TROP ' Serial specimen #1, #2 or #3: 1 Performed By: #### L 501.4020, L500.3400, L500.2500 ####[facility] [address] [place], [address] No Panel InformationOrdered By: Lucas Cui on 10-17-2024 Blood Gas Clinical Comments 28/04 14 40% [facility] Blood Gas Respiration Rate [address] [facility] Blood Gas Sample Site L Radial [facility] Blood Gas Specimen Type ART [facility] Blood Gas Vent Mode NIV [facility] Oxygen Delivery Device BiPAP [facility] Oxygen saturation measuremen tOrdered By: Lucas Cui on 10-17-2024 Blood Gas Oxygen Saturation 94 % Low 95-[address] [facility] Partial pressure of carbon d ioxide measurementOrdered By: Lucas Cui on 10-17-2024 Arterial Blood Partial Pressure CO2 44.7 mmHg 35-[address] [facility] Partial pressure of oxygen m easurementOrdered By: Lucas Cui on 10-17-2024 Arterial Blood Partial Pressure O2 84 mmHG 75-[address] [facility] Total carbon dioxide measure mentOrdered By: Lucas Cui on 10-17-2024 Blood Gas Total CO2 20 mmol/L [facility] pH (Unsp spec)Ordered By: Octavio Cui on 10-17-2024 Blood Gas pH 7.24 Low 7.35-7.[address] [facility] Absolute neutrophil countOrd ered By: Kenan White on 10-13-2024 Neutrophils (Bld) [#/Vol] 9.2 10*3/uL High 2.0-7.[address] [facility] Basophil percentageOrdered B y: Kenan White on 10-13-2024 Basophils/100 WBC (Bld) 0.4 % 0-1 [facility] CBC W/Diff, Automatedon 09-16 Absolute Lymph 1.98 X10 3/uL Normal 0.83-4.[address] [facility] Comment on above: Performed By: #### L 100.0100 ####[facility] [address] [place], [address] Absolute Neut 9.2 X10 3/uL High 2.0-7.[address] [facility] Comment on above: Performed By: #### L 100.0100 ####[facility] [address] [place], [address] Basophils/100 WBC (Bld) 0.4 % Normal 0-1 [facility] Comment on above: Performed By: #### L 100.0100 ####[facility] [address] [place], [address] Eosinophils/100 WBC (Bld) 0.6 % Normal 0-[address] [facility] Comment on above: Performed By: #### L 100.0100 ####[facility] [address] [place], [address] Erythrocyte distribution width (RBC) [Ratio] 13.9 % Normal 11.6-14.[address] [facility] Comment on above: Performed By: #### L 100.0100 ####[facility] [address] [place], [address] Hematocrit (Bld) [Volume fraction] 37.5 % Normal 37-[address] [facility] Comment on above: Performed By: #### L 100.0100 ####[facility] [address] [place], [address] Hemoglobin (Bld) [Mass/Vol] 11.4 g/dL Low 12.0-15.[address] [facility] Comment on above: Performed By: #### L 100.0100 ####[facility] [address] [place], [address] IG% 0.700 Normal 0.0-0.[address] [facility] Comment on above: Result Comment: IG% - Immature Granulocytes (promyelocytes, myelocytes andmetamyelocytes) > 1% indicates that a LEFT SHIFT is Present. Performed By: #### L 100.0100 ####[facility] [address] [place], [address] Lymphocytes/100 WBC (Bld) 16.3 % Low 19-[address] [facility] Comment on above: Performed By: #### L 100.0100 ####[facility] [address] [place], [address] MCH (RBC) [Entitic mass] 28.1 pg Normal 27.0-32.[address] [facility] Comment on above: Performed By: #### L 100.0100 ####[facility] [address] [place], [address] MCHC (RBC) [Mass/Vol] 30.4 g/dL Low 32-36 [facility] Comment on above: Performed By: #### L 100.0100 ####[facility] [address] [place], [address] MCV (RBC) [Entitic vol] 92.4 fL Normal 81-99 [facility] Comment on above: Performed By: #### L 100.0100 ####[facility] [address] [place], [address] Monocytes/100 WBC (Bld) 6.3 % Normal 0-10 [facility] Comment on above: Performed By: #### L 100.0100 ####[facility] [address] [place], [address] Neutrophils/100 WBC (Bld) 75.7 % High 47-[address] [facility] Comment on above: Performed By: #### L 100.0100 ####[facility] [address] [place], [address] Nucleated RBC (Bld) [#/Vol] 0 10*3/uL Normal 0-[address] [facility] Comment on above: Performed By: #### L 100.0100 ####[facility] [address] [place], [address] Platelet mean volume (Bld) [Entitic vol] 9.2 fL Normal 6.2-12.[address] [facility] Comment on above: Performed By: #### L 100.0100 ####[facility] [address] [place], [address] Platelets (Bld) [#/Vol] 375 10*3/uL Normal 150-[address] [facility] Comment on above: Performed By: #### L 100.0100 ####[facility] [address] [place], [address] RBC (Bld) [#/Vol] 4.06 10*6/uL Low 4.2-5.4 [facility] Comment on above: Performed By: #### L 100.0100 ####[facility] [address] [place], [address] RDW SD 46.9 fl High 35.1-43.[address] [facility] Comment on above: Performed By: #### L 100.0100 ####[facility] [address] [place], [address] WBC (Bld) [#/Vol] 12.2 10*3/uL High 4.4-11.0 [facility] Comment on above: Performed By: #### L 100.0100 ####[facility] [address] [place], [address] Chest PA and Lateralon 10-13 Chest PA and Lateral Normal [facility] Eosinophil percentageOrdered By: Kenan White on 10-13-2024 Eosinophils/100 WBC (Bld) 0.6 % 0-[address] [facility] Erythrocyte distribution wid th ratioOrdered By: Kenan White on 10-13-2024 Erythrocyte distribution width (RBC) [Ratio] 13.9 % 11.6-14.[address] [facility] Erythrocyte distribution wid th standard deviationOrdered By: Kenan White on 10-13-2024 Erythrocyte distribution width (RBC) [Entitic vol] 46.9 fL High 35.1-43.[address] [facility] Hematocrit Auto (Bld) [Volum e fraction]Ordered By: Kenan White on 10-13-2024 Hematocrit (Bld) [Volume fraction] 37.5 % 37-[address] [facility] Hemoglobin measurementOrdere d By: Kenan White on 10-13-2024 Hemoglobin (Bld) [Mass/Vol] 11.4 g/dL Low 12.0-15.[address] [facility] Immature granulocytes/100 WB C Auto (Bld)Ordered By: Kenan White on 10-13-2024 Immature granulocytes/100 WBC (Bld) 0.700 % 0.0-0.[address] [facility] Comment on above: IG% - Immature Granu locytes (promyelocytes, myelocytes and metamyelocytes) > 1% indicates that a LEFT SHIFT is Present. Lymphocytes Auto (Unsp spec) [#/Vol]Ordered By: Kenan White on 10-13-2024 Lymphocytes (Bld) [#/Vol] 1.98 10*3/uL 0.83-4.[address] [facility] Lymphocytes/100 WBC Auto (Un sp spec)Ordered By: Kenan White on 10-13-2024 Lymphocytes/100 WBC (Bld) 16.3 % Low 19-[address] [facility] MCV (mean corpuscular volume ) determinationOrdered By: Kenan White on 10-13-2024 MCV (RBC) [Entitic vol] 92.4 fL 81-99 [facility] Mean corpuscular hemoglobin (MCH) determinationOrdered By: Kenan White on 10-13-2024 MCH (RBC) [Entitic mass] 28.1 pg 27.0-32.[address] [facility] Mean corpuscular hemoglobin concentration (MCHC) determinationOrdered By: Kenan White on 10-13-2024 MCHC (RBC) [Mass/Vol] 30.4 g/dL Low 32-36 [facility] Mean platelet volume determi nationOrdered By: Kenan White on 10-13-2024 Platelet mean volume (Bld) [Entitic vol] 9.2 fL 6.2-12.[address] [facility] Monocyte percentageOrdered B y: Kenan White on 10-13-2024 Monocytes/100 WBC (Bld) 6.3 % 0-10 [facility] Neutrophil percentageOrdered By: Kenan White on 10-13-2024 Neutrophils/100 WBC (Bld) 75.7 % High 47-[address] [facility] Nucleated red blood cell per centageOrdered By: Kenan White on 10-13-2024 Nucleated RBC/100 WBC (Bld) [Ratio] 0 % 0-[address] [facility] Platelet countOrdered By: Tasneem White on 10-13-2024 Platelets (Bld) [#/Vol] 375 10*3/uL 150-[address] [facility] RBC Auto (Bld) [#/Vol]Ordere d By: Kenan White on 10-13-2024 RBC (Bld) [#/Vol] 4.06 10*6/uL Low 4.2-5.4 [facility] White blood cell (WBC) count Ordered By: Kenan White on 10-13-2024 WBC (Bld) [#/Vol] 12.2 10*3/uL High 4.4-11.0 [facility] AVASTIN (BEVACIZUMAB) 1.25MG INTRAVITREAL INJECTION OD (RIGHT EYE)on 10-05-2024 [facility] OCT MACULA CIRRUS OU (BOTH E YES)on 10-05-2024 [facility] Radiology Study observation (narrative) [facility] AVASTIN (BEVACIZUMAB) 1.25MG INTRAVITREAL INJECTION OD (RIGHT EYE)on 08-24-2024 [facility] OCT MACULA CIRRUS OU (BOTH E YES)on 08-24-2024 [facility] Radiology Study observation (narrative) [facility] AVASTIN (BEVACIZUMAB) 1.25MG INTRAVITREAL INJECTION OD (RIGHT EYE)on 07-20-2024 [facility] OCT MACULA CIRRUS OU (BOTH E YES)on 07-20-2024 [facility] Radiology Study observation (narrative) [facility] CBC W/Diff, Automatedon 06-15 Absolute Lymph 1.82 X10 3/uL Normal 0.83-4.[address] [facility] Comment on above: Order Comment: Order Date: 06/28/24Order Info: [id number] - CBCD Performed By: #### L 500.4100, L501.9520, L100.0100, L500.4050, L501.9985 ####[facility] [address] [place], [address] Absolute Neut 5.2 X10 3/uL Normal 2.0-7.[address] [facility] Comment on above: Order Comment: Order Date: 06/28/24Order Info: [id number] - CBCD Performed By: #### L 500.4100, L501.9520, L100.0100, L500.4050, L501.9985 ####[facility] [address] [place], [address] Basophils/100 WBC (Bld) 0.4 % Normal 0-1 [facility] Comment on above: Order Comment: Order Date: 06/28/24Order Info: [id number]- - CBCD Performed By: #### L 500.4100, L501.9520, L100.0100, L500.4050, L501.9985 ####[facility] [address] [place], [address] Eosinophils/100 WBC (Bld) 2.5 % Normal 0-[address] [facility] Comment on above: Order Comment: Order Date: 06/28/24Order Info: [id number]- - CBCD Performed By: #### L 500.4100, L501.9520, L100.0100, L500.4050, L501.9985 ####[facility] [address] [place], [address] Erythrocyte distribution width (RBC) [Ratio] 13.2 % Normal 11.6-14.[address] [facility] Comment on above: Order Comment: Order Date: 06/28/24Order Info: [id number] - CBCD Performed By: #### L 500.4100, L501.9520, L100.0100, L500.4050, L501.9985 ####[facility] [address] [place], [address] Hematocrit (Bld) [Volume fraction] 39.6 % Normal 37-[address] [facility] Comment on above: Order Comment: Order Date: 06/28/24Order Info: [id number] - CBCD Performed By: #### L 500.4100, L501.9520, L100.0100, L500.4050, L501.9985 ####[facility] [address] [place], [address] Hemoglobin (Bld) [Mass/Vol] 12.6 g/dL Normal 12.0-15.[address] [facility] Comment on above: Order Comment: Order Date: 06/28/24Order Info: [id number] - CBCD Performed By: #### L 500.4100, L501.9520, L100.0100, L500.4050, L501.9985 ####[facility] [address] [place], [address] IG% 0.300 Normal 0.0-0.[address] [facility] Comment on above: Order Comment: Order Date: 06/28/24Order Info: [id number] - CBCD Result Comment: IG% - Immature Granulocytes (promyelocytes, myelocytes andmetamyelocytes) > 1% indicates that a LEFT SHIFT is Present. Performed By: #### L 500.4100, L501.9520, L100.0100, L500.4050, L501.9985 ####[facility] [address] [place], [address] Lymphocytes/100 WBC (Bld) 23.2 % Normal 19-[address] [facility] Comment on above: Order Comment: Order Date: 06/28/24Order Info: [id number] - CBCD Performed By: #### L 500.4100, L501.9520, L100.0100, L500.4050, L501.9985 ####[facility] [address] [place], [address] MCH (RBC) [Entitic mass] 29.5 pg Normal 27.0-32.[address] [facility] Comment on above: Order Comment: Order Date: 06/28/24Order Info: [id number] - CBCD Performed By: #### L 500.4100, L501.9520, L100.0100, L500.4050, L501.9985 ####[facility] [address] [place], [address] MCHC (RBC) [Mass/Vol] 31.8 g/dL Low 32-36 [facility] Comment on above: Order Comment: Order Date: 06/28/24Order Info: [id number] - CBCD Performed By: #### L 500.4100, L501.9520, L100.0100, L500.4050, L501.9985 ####[facility] [address] [place], [address] MCV (RBC) [Entitic vol] 92.7 fL Normal 81-99 [facility] Comment on above: Order Comment: Order Date: 06/28/24Order Info: [id number] - CBCD Performed By: #### L 500.4100, L501.9520, L100.0100, L500.4050, L501.9985 ####[facility] [address] [place], [address] Monocytes/100 WBC (Bld) 7.3 % Normal 0-10 [facility] Comment on above: Order Comment: Order Date: 06/28/24Order Info: [id number] - CBCD Performed By: #### L 500.4100, L501.9520, L100.0100, L500.4050, L501.9985 ####[facility] [address] [place], [address] Neutrophils/100 WBC (Bld) 66.3 % Normal 47-[address] [facility] Comment on above: Order Comment: Order Date: 06/28/24Order Info: [id number] - CBCD Performed By: #### L 500.4100, L501.9520, L100.0100, L500.4050, L501.9985 ####[facility] [address] [place], [address] Nucleated RBC (Bld) [#/Vol] 0 10*3/uL Normal 0-[address] [facility] Comment on above: Order Comment: Order Date: 06/28/24Order Info: [id number] - CBCD Performed By: #### L 500.4100, L501.9520, L100.0100, L500.4050, L501.9985 ####[facility] [address] [place], [address] Platelet mean volume (Bld) [Entitic vol] 9.4 fL Normal 6.2-12.[address] [facility] Comment on above: Order Comment: Order Date: 06/28/24Order Info: [id number] - CBCD Performed By: #### L 500.4100, L501.9520, L100.0100, L500.4050, L501.9985 ####[facility] [address] [place], [address] Platelets (Bld) [#/Vol] 315 10*3/uL Normal 150-[address] [facility] Comment on above: Order Comment: Order Date: 06/28/24Order Info: [id number] - CBCD Performed By: #### L 500.4100, L501.9520, L100.0100, L500.4050, L501.9985 ####[facility] [address] [place], [address] RBC (Bld) [#/Vol] 4.27 10*6/uL Normal 4.2-5.4 [facility] Comment on above: Order Comment: Order Date: 06/28/24Order Info: [id number] - CBCD Performed By: #### L 500.4100, L501.9520, L100.0100, L500.4050, L501.9985 ####[facility] [address] [place], [address] RDW SD 44.5 fl High 35.1-43.[address] [facility] Comment on above: Order Comment: Order Date: 06/28/24Order Info: [id number] - CBCD Performed By: #### L 500.4100, L501.9520, L100.0100, L500.4050, L501.9985 ####[facility] [address] [place], [address] WBC (Bld) [#/Vol] 7.9 10*3/uL Normal 4.4-11.0 [facility] Comment on above: Order Comment: Order Date: 06/28/24Order Info: [id number] - CBCD Performed By: #### L 500.4100, L501.9520, L100.0100, L500.4050, L501.9985 ####[facility] [address] [place], [address] Comprehensive Metabolic Prof nhon 06-28-2024 Albumin [Mass/Vol] 3.3 g/dL Normal 3.2-5.0 [facility] Comment on above: Order Comment: Order Date: 06/28/24Order Info: [id number] - CMPOrder Info: [id number] - LIPIDOrder Info: [id number] - TSH Performed By: #### L 500.4100, L501.9520, L100.0100, L500.4050, L501.9985 ####[facility] [address] [place], [address] Albumin/Globulin [Mass ratio] 0.8 {ratio} Low 0.9-2.[address] [facility] Comment on above: Order Comment: Order Date: 06/28/24Order Info: [id number] - CMPOrder Info: [id number] - LIPIDOrder Info: [id number] - TSH Performed By: #### L 500.4100, L501.9520, L100.0100, L500.4050, L501.9985 ####[facility] [address] [place], [address] ALK P 103 U/L Normal 45-[address] [facility] Comment on above: Order Comment: Order Date: 06/28/24Order Info: [id number] - CMPOrder Info: [id number] - LIPIDOrder Info: [id number] - TSH Performed By: #### L 500.4100, L501.9520, L100.0100, L500.4050, L501.9985 ####[facility] [address] [place], [address] ALT [Catalytic activity/Vol] 19 U/L Normal 13-[address] [facility] Comment on above: Order Comment: Order Date: 06/28/24Order Info: [id number] - CMPOrder Info: [id number] - LIPIDOrder Info: [id number] - TSH Performed By: #### L 500.4100, L501.9520, L100.0100, L500.4050, L501.9985 ####[facility] [address] [place], [address] AST [Catalytic activity/Vol] 22 U/L Normal 15-[address] [facility] Comment on above: Order Comment: Order Date: 06/28/24Order Info: [id number] - CMPOrder Info: [id number] - LIPIDOrder Info: [id number] - TSH Performed By: #### L 500.4100, L501.9520, L100.0100, L500.4050, L501.9985 ####[facility] [address] [place], [address] Bilirubin [Mass/Vol] 0.40 mg/dL Normal 0.20-1.00 [facility] Comment on above: Order Comment: Order Date: 06/28/24Order Info: [id number] - CMPOrder Info: [id number] - LIPIDOrder Info: [id number] - TSH Result Comment: For patients on eltrombopag therapy, use of Dimension [place] TBIL is not recommended. Performed By: #### L 500.4100, L501.9520, L100.0100, L500.4050, L501.9985 ####[facility] [address] [place], [address] BUN/CRE 22.1 RATIO High 10-[address] [facility] Comment on above: Order Comment: Order Date: 06/28/24Order Info: [id number] - CMPOrder Info: [id number] - LIPIDOrder Info: [id number] - TSH Performed By: #### L 500.4100, L501.9520, L100.0100, L500.4050, L501.9985 ####[facility] [address] [place], [address] CA,Total 9.3 mg/dL Normal 8.5-10.[address] [facility] Comment on above: Order Comment: Order Date: 06/28/24Order Info: [id number] - CMPOrder Info: [id number] - LIPIDOrder Info: [id number] - TSH Performed By: #### L 500.4100, L501.9520, L100.0100, L500.4050, L501.9985 ####[facility] [address] [place], [address] Chloride [Moles/Vol] 108 mmol/L High 98-107 [facility] Comment on above: Order Comment: Order Date: 06/28/24Order Info: [id number] - CMPOrder Info: [id number] - LIPIDOrder Info: 3 - TSH Performed By: #### L 500.4100, L501.9520, L100.0100, L500.4050, L501.9985 ####[facility] [address] [place], [address] CO2 [Moles/Vol] 25.0 mmol/L Normal 21.0-32.[address] [facility] Comment on above: Order Comment: Order Date: 06/28/24Order Info: 07-1 - CMPOrder Info: [id number] - LIPIDOrder Info: [id number] - TSH Performed By: #### L 500.4100, L501.9520, L100.0100, L500.4050, L501.9985 ####[facility] [address] [place], [address] Creatinine [Mass/Vol] 1.13 mg/dL High 0.55-1.02 [facility] Comment on above: Order Comment: Order Date: 06/28/24Order Info: [id number] - CMPOrder Info: [id number] - LIPIDOrder Info: [id number] - TSH Result Comment: The validity of the calculated GFR GFRAA in patients over70 years has not been determined. Clinical correlation isessential. Performed By: #### L 500.4100, L501.9520, L100.0100, L500.4050, L501.9985 ####[facility] [address] [place], [address] EST GFR - AA 61 mL/min Normal >[address] [facility] Comment on above: Order Comment: Order Date: 06/28/24Order Info: 07- - CMPOrder Info: [id number] - LIPIDOrder Info: [id number] - TSH Result Comment: Afri can [place]ian GFR Calc Performed By: #### L 500.4100, L501.9520, L100.0100, L500.4050, L501.9985 ####[facility] [address] [place], [address] GAP 7 Normal 5-[address] [facility] Comment on above: Order Comment: Order Date: 06/28/24Order Info: 07- - CMPOrder Info: [id number] - LIPIDOrder Info: [id number] - TSH Performed By: #### L 500.4100, L501.9520, L100.0100, L500.4050, L501.9985 ####[facility] [address] [place], [address] GFR/1.73 sq M.predicted among non-blacks MDRD (S/P/Bld) [Vol rate/Area] 50 mL/min/{1.73_m2} Low >[address] [facility] Comment on above: Order Comment: Order Date: 06/28/24Order Info: [id number] - CMPOrder Info: [id number] - LIPIDOrder Info: [id number] - TSH Result Comment: Non- GFR Calc Performed By: #### L 500.4100, L501.9520, L100.0100, L500.4050, L501.9985 ####[facility] [address] [place], [address] Globulin (S) [Mass/Vol] 4.2 g/dL Normal 2.2-4.2 [facility] Comment on above: Order Comment: Order Date: 06/28/24Order Info: [id number] - CMPOrder Info: [id number] - LIPIDOrder Info: [id number] - TSH Performed By: #### L 500.4100, L501.9520, L100.0100, L500.4050, L501.9985 ####[facility] [address] [place], [address] Glucose [Mass/Vol] 121 mg/dL High 74-106 [facility] Comment on above: Order Comment: Order Date: 06/28/24Order Info: [id number] - CMPOrder Info: [id number] - LIPIDOrder Info: [id number] - TSH Result Comment: Fast ing Glucose result from 100 to 125 mg/dLsuggests IMPAIRED HOMEOSTASIS per A.D.A. criteria. Performed By: #### L 500.4100, L501.9520, L100.0100, L500.4050, L501.9985 ####[facility] [address] [place], [address] Potassium [Moles/Vol] 4.6 mmol/L Normal 3.5-5.1 [facility] [place] Comment on above: Order Comment: Order Date: 06/28/24Order Info: [id number] - CMPOrder Info: [id number] - LIPIDOrder Info: [id number] - TSH Performed By: #### L 500.4100, L501.9520, L100.0100, L500.4050, L501.9985 ####[facility] [address] [place], [address] Sodium [Moles/Vol] 140 mmol/L Normal 136-145 [facility] Comment on above: Order Comment: Order Date: 06/28/24Order Info: [id number] - CMPOrder Info: [id number] - LIPIDOrder Info: 3 - TSH Performed By: #### L 500.4100, L501.9520, L100.0100, L500.4050, L501.9985 ####[facility] [address] [place], [address] T PROT 7.5 g/dL Normal 6.4-8.[address] [facility] Comment on above: Order Comment: Order Date: 06/28/24Order Info: [id number] - CMPOrder Info: [id number] - LIPIDOrder Info: 3 - TSH Performed By: #### L 500.4100, L501.9520, L100.0100, L500.4050, L501.9985 ####[facility] [address] [place], [address] Urea nitrogen [Mass/Vol] 25 mg/dL High 7-[address] [facility] Comment on above: Order Comment: Order Date: 06/28/24Order Info: [id number] - CMPOrder Info: [id number] - LIPIDOrder Info: 6-3 - TSH Performed By: #### L 500.4100, L501.9520, L100.0100, L500.4050, L501.9985 ####[facility] [address] [place], [address] Hemoglobin A1con 06-28-2024 HbA1c (Bld) [Mass fraction] 6.9 % High 3.8-5.[address] [facility] Comment on above: Order Comment: Order Date: 06/28/24Order Info: [id number] - A1C Result Comment: Norm al < 5.7 % Prediabetic 5.7 - 6.4 % Diabetic >or= 6.5 % Please note range changes. Performed By: #### L 500.4100, L501.9520, L100.0100, L500.4050, L501.9985 ####[facility] [address] [place], [address] Lipid Profileon 06-28-2024 Cholesterol [Mass/Vol] 145 mg/dL Normal 200 [facility] Comment on above: Order Comment: Order Date: 06/28/24Order Info: [id number] - CMPOrder Info: [id number] - LIPIDOrder Info: [id number] - TSH Result Comment: <200 mg/dL Desirable 200-240 mg/dL Borderline >240 mg/dL High Risk Performed By: #### L 500.4100, L501.9520, L100.0100, L500.4050, L501.9985 ####[facility] [address] [place], [address] Cholesterol in HDL [Mass/Vol] 60 mg/dL Normal [facility] Comment on above: Order Comment: Order Date: 06/28/24Order Info: [id number] - CMPOrder Info: [id number] - LIPIDOrder Info: [id number] - TSH Result Comment: The drugs N-Acetylcysteine and Metamizole may falselydepress this assay. Reference Range HDL <40 mg/dL Low HDL Cholesterol HDL >or= 60 mg/dL High HDL Cholesterol Performed By: #### L 500.4100, L501.9520, L100.0100, L500.4050, L501.9985 ####[facility] [address] [place], [address] Cholesterol in LDL [Mass/Vol] 58 mg/dL Normal 0-[address] [facility] Comment on above: Order Comment: Order Date: 06/28/24Order Info: [id number] - CMPOrder Info: [id number] - LIPIDOrder Info: [id number] - TSH Performed By: #### L 500.4100, L501.9520, L100.0100, L500.4050, L501.9985 ####[facility] [address] [place], [address] Cholesterol in VLDL [Mass/Vol] 27 mg/dL Normal 5-[address] [facility] Comment on above: Order Comment: Order Date: 06/28/24Order Info: [id number] - CMPOrder Info: [id number] - LIPIDOrder Info: [id number] - TSH Performed By: #### L 500.4100, L501.9520, L100.0100, L500.4050, L501.9985 ####[facility] [address] [place], [address] Triglyceride [Mass/Vol] 134 mg/dL Normal [facility] Comment on above: Order Comment: Order Date: 06/28/24Order Info: [id number] - CMPOrder Info: [id number] - LIPIDOrder Info: 6-3 - TSH Result Comment: The drugs N-Acetylcysteine and Metamizole may falselydepress this assay.Serum Triglycerides Reference Interval Normal <150 mg/dL Borderline high 150 - 199 mg/dL High 200 - 499 mg/dL Very High > or = 500 mg/dL Performed By: #### L 500.4100, L501.9520, L100.0100, L500.4050, L501.9985 ####[facility] [address] [place], [address] Thyroid Stim Hormone (TSH)on 06-28-2024 TSH 1.760 uIU/mL Normal 0.358-3.[address] [facility] Comment on above: Order Comment: Order Date: 06/28/24Order Info: [id number] - CMPOrder Info: [id number] - LIPIDOrder Info: [id number] - TSH Performed By: #### L 500.4100, L501.9500, L100.0100, L500.4050, L501.9969 ####[facility] [address] [place], [address] Absolute lymphocyte countOrd ered By: [facility] Valladareske on 12-31-2023 Lymphocytes Auto (Unsp spec) [#/Vol] 1.84 10*3/uL 0.83-4.[address] [facility] Automated lymphocyte count a s percentage of total leukocytesOrdered By: Alkazachariah Suman on 12-31-2023 Lymphocytes/100 WBC Auto (Unsp spec) 21.2 % 19-[address] [facility] Basophil percentageOrdered B y: Donal Valladareske on 12-31-2023 Basophils/100 WBC (Bld) 0.3 % 0-1 [facility] Bilirubin [Mass/Vol] 0.50 mg/dL 0.20-1.00 [facility] Comment on above: For patients on eltr ombopag therapy, use of Dimension [place] TBIL is not recommended. Chloride [Moles/Vol] 109 mmol/L 98-107 [facility] Cholesterol [Mass/Vol] 165 mg/dL <200 [facility] Comment on above: <200 mg/dL Desirable 200-240 mg/dL Borderline >240 mg/dL High Risk Eosinophils/100 WBC (Bld) 2.0 % 0-[address] [facility] Glucose [Mass/Vol] 125 mg/dL 74-106 [facility] Comment on above: Fasting Glucose resu lt from 100 to 125 mg/dL suggests IMPAIRED HOMEOSTASIS per A.D.A. criteria. Hemoglobin (Bld) [Mass/Vol] 12.5 g/dL 12.0-15.[address] [facility] Monocytes/100 WBC (Bld) 7.6 % 0-10 [facility] Neutrophils (Bld) [#/Vol] 6.0 10*3/uL 2.0-7.[address] [facility] Neutrophils/100 WBC (Bld) 68.6 % 47-[address] [facility] Potassium [Moles/Vol] 4.3 mmol/L 3.5-5.1 [facility] Protein [Mass/Vol] 7.2 g/dL 6.4-8.2 [facility] Sodium [Moles/Vol] 140 mmol/L 136-145 [facility] Triglyceride [Mass/Vol] 146 mg/dL <199 [facility] Comment on above: The drugs N-Acetylcy steine and Metamizole may falsely depress this assay.Serum Triglycerides Reference Interval Normal <150 mg/dL Borderline high 150 - 199 mg/dL High 200 - 499 mg/dL Very High > or = 500 mg/dL WBC (Bld) [#/Vol] 8.7 10*3/uL 4.4-11.0 [facility] Determination of erythrocyte mean corpuscular volume (MCV)Ordered By: Donal Castle on 12-31-2023 MCV (RBC) [Entitic vol] 91.5 fL 81-99 [facility] Erythrocyte distribution wid th ratioOrdered By: [facility] on 12-31-2023 Erythrocyte distribution width (RBC) [Ratio] 14.3 % 11.6-14.[address] [facility] Erythrocyte distribution wid th standard deviationOrdered By: Donal Suman on 12-31-2023 Erythrocyte distribution width (RBC) [Entitic vol] 48.5 fL 35.1-43.[address] [facility] Hematocrit Auto (Bld) [Volum e fraction]Ordered By: Donal Suman on 12-31-2023 Hematocrit (Bld) [Volume fraction] 39.8 % 37-[address] [facility] Immature granulocytes/100 WB C Auto (Bld)Ordered By: Donal Suman on 12-31-2023 Immature granulocytes/100 WBC (Bld) 0.300 % 0.0-0.[address] [facility] Comment on above: IG% - Immature Granu locytes (promyelocytes, myelocytes and metamyelocytes) > 1% indicates that a LEFT SHIFT is Present. Laboratory - Chemistry and C hemistry - challengeOrdered By: Donal Castle on 12-31-2023 Albumin/Globulin [Mass ratio] 0.9 {ratio} 0.9-2.[address] [facility] ALP [Catalytic activity/Vol] 101 U/L 45-[address] [facility] ALT [Catalytic activity/Vol] 22 U/L 13-[address] [facility] Cholesterol in HDL [Mass/Vol] 64 mg/dL >[address] [facility] Comment on above: The drugs N-Acetylcy steine and Metamizole may falsely depress this assay. Reference Range HDL <40 mg/dL Low HDL Cholesterol HDL >or= 60 mg/dL High HDL Cholesterol Cholesterol in LDL [Mass/Vol] 72 mg/dL 0-[address] [facility] CO2 [Moles/Vol] 28.0 mmol/L 21.0-32.[address] [facility] Globulin (S) [Mass/Vol] 3.8 g/dL 2.2-4.2 [facility] Urea nitrogen/Creatinine [Mass ratio] 19.4 mg/mg 10-[address] [facility] Laboratory - Hematology and Cell countsOrdered By: Donal Castle on 12-31-2023 MCH (RBC) [Entitic mass] 28.7 pg 27.0-32.[address] [facility] MCHC (RBC) [Mass/Vol] 31.4 g/dL 32-36 [facility] Nucleated RBC/100 WBC (Bld) [Ratio] 0 % 0-[address] [facility] Platelet mean volume (Bld) [Entitic vol] 9.3 fL 6.2-12.[address] [facility] Platelets (Bld) [#/Vol] 334 10*3/uL 150-[address] [facility] No Panel InformationOrdered By: Donal Castle on 12-31-2023 Estimated GFR (MDRD) Amer 64 mL/min >[address] [facility] Comment on above: GFR Calc Estimated GFR (MDRD) Non-Af Amer 53 mL/min >[address] [facility] Comment on above: Non- GFR Calc Vitamin D 25-Hydroxy 48.4 ng/mL [facility] Comment on above: Vitamin D 25(OH) Sta tus Range Deficiency <20 ng/mL (50nmol/L) Insufficiency 20 - 30 ng/mL (50 - 75 nmol/L) Sufficiency 30 - 100 ng/mL (75 - 250 nmol/L) Toxicity >100 ng/mL (>250 nmol/L) VLDL Cholesterol 29 mg/dL 5-[address] [facility] RBC Auto (Bld) [#/Vol]Ordere d By: Donal Castle on 12-31-2023 RBC (Bld) [#/Vol] 4.35 10*6/uL 4.2-5.4 [facility] Serum or plasma calcium ras urement (mass/volume)Ordered By: Donal Castle on 12-31-2023 Calcium [Mass/Vol] 8.9 mg/dL 8.5-10.1 [facility] Serum or plasma creatinine m easurement (mass/volume)Ordered By: Donal Castle on 12-31-2023 Creatinine [Mass/Vol] 1.08 mg/dL 0.55-1.02 [facility] Comment on above: The validity of the calculated GFR & GFRAA in patients over 70 years has not been determined. Clinical correlation is essential. Serum or plasma thyroid stim ulating hormone (TSH) measurement (units/volume)Ordered By: Donal Castle on 12-31-2023 TSH Qn 2.26 uIU/mL 0.358-3.[address] [facility] Serum or plasma urea nitroge n measurement (mass/volume)Ordered By: Donal Castle on 12-31-2023 Urea nitrogen [Mass/Vol] 21 mg/dL 7-[address] [facility] Thin prep Papanicolaou smear with manual screeningOrdered By: Donal Suman on 12-31-2023 Thin prep Papanicolaou smear with manual screening 3.4 g/dL 3.2-5.[address] [facility] Thin prep Papanicolaou smear with manual screening 21 U/L 15-[address] [facility] Thin prep Papanicolaou smear with manual screening 3 5-[address] [facility] Whole blood hemoglobin A1c/t otal hemoglobin ratio (mass fraction)Ordered By: Donal Castle on 12-31-2023 HbA1c (Bld) [Mass fraction] 7.1 % 3.8-5.[address] [facility] Comment on above: Normal < 5.7 % Predi abetic 5.7 - 6.4 % Diabetic >or= 6.5 % Please note range changes. Glucose Test strip manual (B ld) [Mass/Vol]on 09-30-2023 Glucose [Mass/Vol] 91 mg/dL Normal 74-99 [facility] Comment on above: Performed By: #### 2 341-6 #### [address] ([id number]) [facility] ([facility]) [address] [place] [address] Glucose [Mass/Vol] 91 mg/dL 74 - 99 mg/dL [facility] Interpretation and review of laboratory results Normal [facility] Glucose Test strip manual (B ld) [Mass/Vol]on 08-26-2023 Glucose [Mass/Vol] 115 mg/dL High 74-99 [facility] Comment on above: Performed By: #### 2 341-6 #### [address] ([id number]) [facility] ([facility]) [address] [place] [address] Glucose [Mass/Vol] 115 mg/dL High 74 - 99 mg/dL [facility] Interpretation and review of laboratory results Abnormal [facility] Electrocardiogram 12 Leadon 08-09-2023 Electrocardiogram 12 Lead Ventricular Rate 88 Atrial Rate 88 P-R Interval 134 QRS Duration 78 Q-T Interval 342 QTC Calculation(Bazett) 413 P [place] 71 R [place] 8 T [place] 37 QRS Count 14 Q Onset 219 P Onset 152 P Offset 189 T Offset 390 QTC Fredericia 388 Diagnosis Class Borderline Abnormal Diagnosis Sinus rhythm with Premature supraventricular complexes and with occasional Premature ventricular complexes Otherwise normal ECG No previous ECGs available Confirmed by Pedro Pablo Garcia ([id number]) on 08/10/2023 1:19:05 PM Normal [facility] BONE DENSITY, DEXA 1 OR MORE SITES: AXIAL SKELETONon 07-20-2023 BONE DENSITY, DEXA 1 OR MORE SITES: AXIAL SKELETON Patient Name: MISAEL MEDINA STUDY: BONE DENSITY, DEXA 1 OR MORE SITES: AXIAL SKELET07/20/2023 2:08 pm INDICATION: MENOPAUSAL STATE. The patient is a 73 y/o year old F. COMPARISON: 07/10/2021 ACCESSION NUMBER(S): [id number] ORDERING CLINICIAN: GIRISH SIMON TECHNIQUE: BONE DENSITY, DEXA 1 OR MORE SITES: AXIAL SKELETN FINDINGS: SPINE L1-L4 Bone Mineral Density: 1.432 T-Score 1.9 Z-Score 3.6 Bone Mineral Density change vs baseline: Not reported Bone Mineral Density change vs previous: Not reported LEFT FEMUR -TOTAL Bone Mineral Density: 0.873 T-Score -1.1 Z-Score 0.6 Bone Mineral Density change vs baseline: Not reported Bone Mineral Density change vs previous: Not reported LEFT FEMUR -NECK Bone Mineral Density: 0.802 T-Score -1.7 Z-Score 0.1 World Health Organization (WHO) criteria for post-menopausal, Women: Normal: T-score at or above -1 SD Osteopenia: T-score between -1 and -2.5 SD Osteoporosis: T-score at or below -2.5 SD 10-year Fracture Risk: Major Osteoporotic Fracture 9.1 Hip Fracture 1.6 Note: If no FRAX score is reported, it is because: Some T-score for Spine Total or Hip Total or Femoral Neck at or below -2.5 Vertebral Deformity Assessment: Exam Date - 07/20/2023 2:08 pm Vertebral Level Impression T4 None T5 None T6 None T7 None T8 None T9 None T10 None T11 None T12 None L1 None L2 None L3 None L4 None A spine fracture indicates 5X risk for subsequent spine fracture and 2X risk for subsequent hip fracture. This exam was performed at [facility] on a Social [facility] Advanced Dexa Unit. IMPRESSION: DEXA: According to World Health Organization criteria, classification is low bone mass (osteopenia) Followup recommended in two years or sooner as clinically warranted. VFA: NO VERTEBRAL FRACTURES WERE SEEN. All images and detailed analysis are available on the Radiology PACS. MACRO: None Electronically signed by: HUSSAIN GARCIA MD [facility] DIGITAL MAMM SCREENING W/ TO Murphy 07-20-2023 DIGITAL MAMM SCREENING W/ CATIE Patient Name: MISAEL MEDINA STUDY: Digital mammography screening with catie; 07/20/2023 1:51 pm ACCESSION NUMBER(S): [id number] ORDERING CLINICIAN: GIRISH SIMON INDICATION: Screening. COMPARISON: Comparison is made to prior digital mammograms dated 07/10/2021 FINDINGS: CC and MLO 2D digital mammograms and digital breast tomosynthesis images were obtained of the bilateral breasts. 3-D volume images were reconstructed in 4 views at an independent workstation as 1 mm slices through the breasts in both the CC and MLO projections. There are areas of scattered fibroglandular tissue. No discrete mass or focal asymmetry is identified. No suspicious microcalcifications or foci of architectural distortion are seen. There has been no significant change. This study was interpreted with CAD. IMPRESSION: No mammographic evidence of malignancy. BI-RADS CATEGORY: BI-RADS Category: 1 Negative. Recommendation: Routine Screening Mammogram in 1 Year. Recommended Date: 1 Year. Laterality: Bilateral. Electronically signed by: HUSSAIN GARCIA MD [facility] PT Progress Noteon 3 PT Progress Note Therapy Diagnosis Assessed History of right hip replacement (V43.64) (Z96.641) Decreased range of right hip movement (719.55) (M25.651) Impaired transfers (781.99) (Z74.09) Hip pain, right (719.45) (M25.551) Gait abnormality (781.2) (R26.9) Plan Goals: Goals set and discussed today. By discharge MISAEL MEDINA will achieve the following goals: Pt will demo and report compliance with HEP in order to augment POC goals and progression toward independence with symptom management for better outcomes once D/C from POC. , by week 2, goal met Activity Limitation: Pt will demo improved ease with ascending/descending 2 steps with reciprocal pattern and improved eccentric control to decrease fall risk. , goal met Gait/Locomotion: Pt will demo improved gait mechanics with least restrictive device, even step length, stance time, proper heel strike and push off, and min-no evidence of instability or antalgic gait for return to PLOF. , goal met Strength: Pt will demo improved MMT by >/= 1 point on 0-5 point scale in BLE's for improved strength and stability, and improved ease with transfers, lifting/carrying, and proper mechanics with ADL?s AND IADL?s. , goal met Transfers: Pt will demo improved ease with sit<>stand with min UE A and improved eccentric control for decreased fall risk and improved ease with transfers. , goal met LEFS, Pt will report subjective improvement with score on LEFS improved by >/= 5 points for return to PLOF, improved QOL, and improved ease with ADL?s AND IADL?s. , goal met Planned interventions include: aquatic therapy, cryotherapy, dry needling, education/instruction, electrical stimulation, gait training, home program, hot pack, kinesiotaping, manual therapy, neuromuscular re-education, self care/home management, therapeutic activities, therapeutic exercises and IASTM/CUPPING. Frequency and duration:. 1 additional visit. Potential to achieve rehab goals is good Pt is going to attempt independence with HEP at this time with updates to focus on increasing overall endurance and strength. Pt being placed on hold for 30 days at this time and is going to attempt independence with HEP. If pt does not elect to resume PT within 30 days, this will serve as his D/C. Refer back in future if necessary. Monitor home program. Patient instructed to call if problems. Assessment Pt reassessed this date by supervising PT with improvements noted in Right hip MMT and RIght hip PROM compared to eval. Pt also demonstrates improved gait mechanics and improved overall functional level. Pt reports subjective improvement with LEFS score increasing from 9/80 at eval to 61/80 now. Pt has lingering myofascial restrictions throughout RLE musculature, which responded well to [facility] performe this date during verbal review of HEP. Pt reported good understanding of all edu and updates to HEP made this date and is appropriate to attempt independence with HEP and symptom management at this time. Pt was also able to ascend/descend clinic stairs with reciprocal pattern and min-no evidence of instability. Adult Risk Screening There are no spiritual/cultural practices/values/needs that are important to know Initial Fall Risk Screening: MISAEL has not fallen in the last 6 months. MISAEL has a fear of falling. She needs assistance with . Needs assistance walking in her home. She needs assistance in an unfamiliar setting. The patient is using an assistive device. Fall Risk Screening: Patient is identified as a fall risk. Care Plan: Moderate Risk: Low risk interventions plus: do not leave patient on exam table unattended, supervised activity, educate patient/family on falls prevention, review safety initiatives with patient/family, family at bedside as allowed, yellow falls risk band, focus rounding attention, locate patient in area of high visibility, wheelchair, bed, or personal alarm, bedside commode, elevated toilet seat and pharmacy consult for medication concerns. Pain Scale: On a scale of 0 to 10, the patient rates the pain at 0. Please identify location of pain: R thigh. Pain Quality: aching. The pain makes it hard for the patient to do these things: walking, exercise, sleep, relationships with family or friends and self-care (bathing, dressing, eating). Living Will. Living Will: Living will on file. Healthcare POA: Health care proxy on file. Declaration of Mental Health Treatment: Declaration of mental health treatment on file. Domestic Violence Screen: Does not feel threatened or abused physically, emotionally or sexually. Do you feel UNSAFE? The patient feels safe in the home. Depression/Suicide Screening: During the past 2 weeks, the patient has not felt down, depressed or hopeless. During the past 2 weeks, the patient has not felt little interest or pleasure in doing things. Insurance Insurance reviewed Visit number: [id number] Authorization not required after evaluation POC: [employer] Supervising PT: Alejandra (more content not included)... Normal [facility] Therapy Re-eval Noteon 02-15 Therapy Re-eval Note Therapy Diagnosis Assessed 1. History of right hip replacement (V43.64) (Z96.641) 2. Decreased range of right hip movement (719.55) (M25.651) 3. Impaired transfers (781.99) (Z74.09) 4. Hip pain, right (719.45) (M25.551) 5. Gait abnormality (781.2) (R26.9) Plan Goals: Goals set and discussed today. By discharge MISAEL MEDINA will achieve the following goals: Pt will demo and report compliance with HEP in order to augment POC goals and progression toward independence with symptom management for better outcomes once D/C from POC. , by week 2, goal met Activity Limitation: Pt will demo improved ease with ascending/descending 2 steps with reciprocal pattern and improved eccentric control to decrease fall risk. , goal met Gait/Locomotion: Pt will demo improved gait mechanics with least restrictive device, even step length, stance time, proper heel strike and push off, and min-no evidence of instability or antalgic gait for return to PLOF. , goal met Strength: Pt will demo improved MMT by >/= 1 point on 0-5 point scale in BLE's for improved strength and stability, and improved ease with transfers, lifting/carrying, and proper mechanics with ADL?s AND IADL?s. , goal met Transfers: Pt will demo improved ease with sit<>stand with min UE A and improved eccentric control for decreased fall risk and improved ease with transfers. , goal met LEFS, Pt will report subjective improvement with score on LEFS improved by >/= 5 points for return to PLOF, improved QOL, and improved ease with ADL?s AND IADL?s. , goal met Planned interventions include: aquatic therapy, cryotherapy, dry needling, education/instruction, electrical stimulation, gait training, home program, hot pack, kinesiotaping, manual therapy, neuromuscular re-education, self care/home management, therapeutic activities, therapeutic exercises and IASTM/CUPPING. Frequency and duration:. 1 additional visit. Potential to achieve rehab goals is good Pt is going to attempt independence with HEP at this time with updates to focus on increasing overall endurance and strength. Pt being placed on hold for 30 days at this time and is going to attempt independence with HEP. If pt does not elect to resume PT within 30 days, this will serve as his D/C. Refer back in future if necessary. Monitor home program. Patient instructed to call if problems. Assessment Pt reassessed this date by supervising PT with improvements noted in Right hip MMT and RIght hip PROM compared to eval. Pt also demonstrates improved gait mechanics and improved overall functional level. Pt reports subjective improvement with LEFS score increasing from 9/80 at eval to 61/80 now. Pt has lingering myofascial restrictions throughout RLE musculature, which responded well to STM performe this date during verbal review of HEP. Pt reported good understanding of all edu and updates to HEP made this date and is appropriate to attempt independence with HEP and symptom management at this time. Pt was also able to ascend/descend clinic stairs with reciprocal pattern and min-no evidence of instability. Adult Risk Screening There are no spiritual/cultural practices/values/needs that are important to know Initial Fall Risk Screening: MISAEL has not fallen in the last 6 months. MISAEL has a fear of falling. She needs assistance with . Needs assistance walking in her home. She needs assistance in an unfamiliar setting. The patient is using an assistive device. Fall Risk Screening: Patient is identified as a fall risk. Care Plan: Moderate Risk: Low risk interventions plus: do not leave patient on exam table unattended, supervised activity, educate patient/family on falls prevention, review safety initiatives with patient/family, family at bedside as allowed, yellow falls risk band, focus rounding attention, locate patient in area of high visibility, wheelchair, bed, or personal alarm, bedside commode, elevated toilet seat and pharmacy consult for medication concerns. Pain Scale: On a scale of 0 to 10, the patient rates the pain at 0. Please identify location of pain: R thigh. Pain Quality: aching. The pain makes it hard for the patient to do these things: walking, exercise, sleep, relationships with family or friends and self-care (bathing, dressing, eating). Living Will. Living Will: Living will on file. Healthcare POA: Health care proxy on file. Declaration of Mental Health Treatment: Declaration of mental health treatment on file. Domestic Violence Screen: Does not feel threatened or abused physically, emotionally or sexually. Do you feel UNSAFE? The patient feels safe in the home. Depression/Suicide Screening: During the past 2 weeks, the patient has not felt down, depressed or hopeless. During the past 2 weeks, the patient has not felt little interest or pleasure in doing things. Insurance Insurance reviewed Visit number: [id number] Authorization not required after evaluation POC: [employer] Jcarlos (more content not included)... Normal [facility] PT Progress Noteon 3 PT Progress Note Therapy Diagnosis Assessed Impaired transfers (781.99) (Z74.09) Decreased range of right hip movement (719.55) (M25.651) Gait abnormality (781.2) (R26.9) Hip pain, right (719.45) (M25.551) History of right hip replacement (V43.64) (Z96.641) Plan Goals: Goals set and discussed today. By discharge MISAEL MEDINA will achieve the following goals: Pt will demo and report compliance with HEP in order to augment POC goals and progression toward independence with symptom management for better outcomes once D/C from POC. , by week 2, goal met Activity Limitation: Pt will demo improved ease with ascending/descending 2 steps with reciprocal pattern and improved eccentric control to decrease fall risk. , goal partially met Gait/Locomotion: Pt will demo improved gait mechanics with least restrictive device, even step length, stance time, proper heel strike and push off, and min-no evidence of instability or antalgic gait for return to PLOF. , goal partially met Strength: Pt will demo improved MMT by >/= 1 point on 0-5 point scale in BLE's for improved strength and stability, and improved ease with transfers, lifting/carrying, and proper mechanics with ADL?s AND IADL?s. , goal partially met Transfers: Pt will demo improved ease with sit<>stand with min UE A and improved eccentric control for decreased fall risk and improved ease with transfers. , goal partially met LEFS, Pt will report subjective improvement with score on LEFS improved by >/= 5 points for return to PLOF, improved QOL, and improved ease with ADL?s AND IADL?s. , goal met Planned interventions include: aquatic therapy, cryotherapy, dry needling, education/instruction, electrical stimulation, gait training, home program, hot pack, kinesiotaping, manual therapy, neuromuscular re-education, self care/home management, therapeutic activities, therapeutic exercises and IASTM/CUPPING. Frequency and duration: 2 time(s) a week, for 4 weeks, for 15 total POC visits. Potential to achieve rehab goals is good Plan to progress patient's walking distance and endurance as she can't walk for long periods of time w/o getting fatigued or needing to take a break, d/t weak hip musculature. Progress with POC, as tolerated. Assessment Pt entered clinic ambulating w/ a step through gait pattern utilizing a standard cane. Continued with previous exercises as patient was feeling very tired and worn out today and did not have enough energy for progressions. Did add tandem stance 30 seconds on airex for additional balance training w/ 1 UE support and slight ankle instability. Progressed bridges w/ add. Patient very fatigued today and opted out of performing bosu running shruthi and bridge w/ marches. Added weight to SLR for additional LE strengthening Treatment provided by LINDA Mcdermott under the direct supervision of Katiana Guzman PTA. Adult Risk Screening There are no spiritual/cultural practices/values/needs that are important to know Initial Fall Risk Screening: MISAEL has not fallen in the last 6 months. MISAEL has a fear of falling. She needs assistance with . Needs assistance walking in her home. She needs assistance in an unfamiliar setting. The patient is using an assistive device. Fall Risk Screening: Patient is identified as a fall risk. Care Plan: Moderate Risk: Low risk interventions plus: do not leave patient on exam table unattended, supervised activity, educate patient/family on falls prevention, review safety initiatives with patient/family, family at bedside as allowed, yellow falls risk band, focus rounding attention, locate patient in area of high visibility, wheelchair, bed, or personal alarm, bedside commode, elevated toilet seat and pharmacy consult for medication concerns. Please identify location of pain: R thigh. Pain Quality: aching. The pain makes it hard for the patient to do these things: walking, exercise, sleep, relationships with family or friends and self-care (bathing, dressing, eating). Living Will. Living Will: Living will on file. Healthcare POA: Health care proxy on file. Declaration of Mental Health Treatment: Declaration of mental health treatment on file. Domestic Violence Screen: Does not feel threatened or abused physically, emotionally or sexually. Do you feel UNSAFE? The patient feels safe in the home. Depression/Suicide Screening: During the past 2 weeks, the patient has not felt down, depressed or hopeless. During the past 2 weeks, the patient has not felt little interest or pleasure in doing things. Insurance Insurance reviewed Visit number: 21 Authorization not required after evaluation POC: [employer] Supervising PT: Alejandra Cutler PT, DPT, Cert DN PT Dx: M25.551; M25.651; R26.9; Z74.09; Z96.641 Medicare Certification Period: Beginnin2022 Endin2022 Subjective Patient reports:. Pt her pain is a 0/10 today. She reported that she went to see the surgeon this morning and he had (more content not included)... Normal [facility] PT Progress Noteon 3 PT Progress Note Therapy Diagnosis Assessed Impaired transfers (781.99) (Z74.09) Decreased range of right hip movement (719.55) (M25.651) Gait abnormality (781.2) (R26.9) Hip pain, right (719.45) (M25.551) History of right hip replacement (V43.64) (Z96.641) Plan Goals: Goals set and discussed today. By discharge MISAEL MEDINA will achieve the following goals: Pt will demo and report compliance with HEP in order to augment POC goals and progression toward independence with symptom management for better outcomes once D/C from POC. , by week 2, goal met Activity Limitation: Pt will demo improved ease with ascending/descending 2 steps with reciprocal pattern and improved eccentric control to decrease fall risk. , goal partially met Gait/Locomotion: Pt will demo improved gait mechanics with least restrictive device, even step length, stance time, proper heel strike and push off, and min-no evidence of instability or antalgic gait for return to PLOF. , goal partially met Strength: Pt will demo improved MMT by >/= 1 point on 0-5 point scale in BLE's for improved strength and stability, and improved ease with transfers, lifting/carrying, and proper mechanics with ADL?s AND IADL?s. , goal partially met Transfers: Pt will demo improved ease with sit<>stand with min UE A and improved eccentric control for decreased fall risk and improved ease with transfers. , goal partially met LEFS, Pt will report subjective improvement with score on LEFS improved by >/= 5 points for return to PLOF, improved QOL, and improved ease with ADL?s AND IADL?s. , goal met Planned interventions include: aquatic therapy, cryotherapy, dry needling, education/instruction, electrical stimulation, gait training, home program, hot pack, kinesiotaping, manual therapy, neuromuscular re-education, self care/home management, therapeutic activities, therapeutic exercises and IASTM/CUPPING. Frequency and duration: 2 time(s) a week, for 4 weeks, for 15 total POC visits. Potential to achieve rehab goals is good Plan to add more balance activities next visit, increased resisted to HSC/SLR. STW to hip flexors PRN. Pt struggles with core strengthening and needs posture correction for ease of ADLs, safety with ambulation and preventing falls. Progress with POC, as tolerated. Assessment Pt entered clinic ambulating w/ a step through gait pattern utilizing a standard cane. Increased reps on multiple exercises as well as progressing to a blue band for bridge w/ marches and a green band for TKE. Focused on maintaining an isometric bridge for 5' and then added marches, patient was able to do 4 marches per bridge. Pt moderately challenged w/ treatment today as she was heavy breathing and expressed being tired at the end. No increase in pain. Treatment provided by LINDA Mcdermott under the direct supervision of Katiana Guzman PTA. Adult Risk Screening There are no spiritual/cultural practices/values/needs that are important to know Initial Fall Risk Screening: MISAEL has not fallen in the last 6 months. MISAEL has a fear of falling. She needs assistance with . Needs assistance walking in her home. She needs assistance in an unfamiliar setting. The patient is using an assistive device. Fall Risk Screening: Patient is identified as a fall risk. Care Plan: Moderate Risk: Low risk interventions plus: do not leave patient on exam table unattended, supervised activity, educate patient/family on falls prevention, review safety initiatives with patient/family, family at bedside as allowed, yellow falls risk band, focus rounding attention, locate patient in area of high visibility, wheelchair, bed, or personal alarm, bedside commode, elevated toilet seat and pharmacy consult for medication concerns. Please identify location of pain: R thigh. Pain Quality: aching. The pain makes it hard for the patient to do these things: walking, exercise, sleep, relationships with family or friends and self-care (bathing, dressing, eating). Living Will. Living Will: Living will on file. Healthcare POA: Health care proxy on file. Declaration of Mental Health Treatment: Declaration of mental health treatment on file. Domestic Violence Screen: Does not feel threatened or abused physically, emotionally or sexually. Do you feel UNSAFE? The patient feels safe in the home. Depression/Suicide Screening: During the past 2 weeks, the patient has not felt down, depressed or hopeless. During the past 2 weeks, the patient has not felt little interest or pleasure in doing things. Insurance Insurance reviewed Visit number: 20 Authorization not required after evaluation POC: [employer] Supervising PT: Alejandra Cutler PT, DPT, Cert DN PT Dx: M25.551; M25.651; R26.9; Z74.09; Z96.641 Medicare Certification Period: Beginnin2022 Endin2022 Subjective Patient reports:. Pt states her pain is a 0/10 today. Tightness in hip flexors noted. No complaints otherwise. Patient (more content not included)... Normal [facility] PT Progress Noteon 3 PT Progress Note Therapy Diagnosis Assessed Impaired transfers (781.99) (Z74.09) Decreased range of right hip movement (719.55) (M25.651) Gait abnormality (781.2) (R26.9) Hip pain, right (719.45) (M25.551) History of right hip replacement (V43.64) (Z96.641) Plan Goals: Goals set and discussed today. By discharge MISAEL KNJAQUELINE will achieve the following goals: Pt will demo and report compliance with HEP in order to augment POC goals and progression toward independence with symptom management for better outcomes once D/C from POC. , by week 2, goal met Activity Limitation: Pt will demo improved ease with ascending/descending 2 steps with reciprocal pattern and improved eccentric control to decrease fall risk. , goal partially met Gait/Locomotion: Pt will demo improved gait mechanics with least restrictive device, even step length, stance time, proper heel strike and push off, and min-no evidence of instability or antalgic gait for return to PLOF. , goal partially met Strength: Pt will demo improved MMT by >/= 1 point on 0-5 point scale in BLE's for improved strength and stability, and improved ease with transfers, lifting/carrying, and proper mechanics with ADL?s AND IADL?s. , goal partially met Transfers: Pt will demo improved ease with sit<>stand with min UE A and improved eccentric control for decreased fall risk and improved ease with transfers. , goal partially met LEFS, Pt will report subjective improvement with score on LEFS improved by >/= 5 points for return to PLOF, improved QOL, and improved ease with ADL?s AND IADL?s. , goal met Planned interventions include: aquatic therapy, cryotherapy, dry needling, education/instruction, electrical stimulation, gait training, home program, hot pack, kinesiotaping, manual therapy, neuromuscular re-education, self care/home management, therapeutic activities, therapeutic exercises and IASTM/CUPPING. Frequency and duration: 2 time(s) a week, for 4 weeks, for 15 total POC visits. Potential to achieve rehab goals is good Progress to blue band next visit for marches, focus on maintaining isometric bridge. Progress balance and proprioception exercises for challenging mechanoreceptors to eventually improve gait safety and mechanics. Progress with POC, as tolerated. Assessment Pt entered clinic ambulating w/ a step through gait pattern utilizing a standard cane, but had a flexed posture. Added heel raises on airex, bungee/dowel taps, and standing hip ext on airex for progression of balance and hip strengthening. Added lateral step ups for increased hip strengthening as well. Pt struggles to maintain bridge while doing marches, she will do the bridge then the march and then drop back to the table rather than holding an isometric bridge and marching at the same time. Pt fatigued w/ heavy breathing from treatment today, she explains they are not difficult but together they are exhausting. Pt will continue to benefit from increased strengthening, balance and proprioception. Treatment provided by LINDA Mcdermott under the direct supervision of Katiana Guzman PTA. Adult Risk Screening There are no spiritual/cultural practices/values/needs that are important to know Initial Fall Risk Screening: MISAEL has not fallen in the last 6 months. MISAEL has a fear of falling. She needs assistance with . Needs assistance walking in her home. She needs assistance in an unfamiliar setting. The patient is using an assistive device. Fall Risk Screening: Patient is identified as a fall risk. Care Plan: Moderate Risk: Low risk interventions plus: do not leave patient on exam table unattended, supervised activity, educate patient/family on falls prevention, review safety initiatives with patient/family, family at bedside as allowed, yellow falls risk band, focus rounding attention, locate patient in area of high visibility, wheelchair, bed, or personal alarm, bedside commode, elevated toilet seat and pharmacy consult for medication concerns. Please identify location of pain: R thigh. Pain Quality: aching. The pain makes it hard for the patient to do these things: walking, exercise, sleep, relationships with family or friends and self-care (bathing, dressing, eating). Living Will. Living Will: Living will on file. Healthcare POA: Health care proxy on file. Declaration of Mental Health Treatment: Declaration of mental health treatment on file. Domestic Violence Screen: Does not feel threatened or abused physically, emotionally or sexually. Do you feel UNSAFE? The patient feels safe in the home. Depression/Suicide Screening: During the past 2 weeks, the patient has not felt down, depressed or hopeless. During the past 2 weeks, the patient has not felt little interest or pleasure in doing things. Insurance Insurance reviewed Visit number: 19 Authorization not required after evaluation POC: [employer] Supervising PT: Alejandra Cutler PT, DPT, Cert DN PT Dx: M25.551; M25.651; R26.9; Z74.0 (more content not included)... [facility] PT Progress Noteon 3 PT Progress Note Therapy Diagnosis Assessed Impaired transfers (781.99) (Z74.09) Decreased range of right hip movement (719.55) (M25.651) Gait abnormality (781.2) (R26.9) Hip pain, right (719.45) (M25.551) History of right hip replacement (V43.64) (Z96.641) Plan Goals: Goals set and discussed today. By discharge MISAEL CAROL will achieve the following goals: Pt will demo and report compliance with HEP in order to augment POC goals and progression toward independence with symptom management for better outcomes once D/C from POC. , by week 2, goal met Activity Limitation: Pt will demo improved ease with ascending/descending 2 steps with reciprocal pattern and improved eccentric control to decrease fall risk. , goal partially met Gait/Locomotion: Pt will demo improved gait mechanics with least restrictive device, even step length, stance time, proper heel strike and push off, and min-no evidence of instability or antalgic gait for return to PLOF. , goal partially met Strength: Pt will demo improved MMT by >/= 1 point on 0-5 point scale in BLE's for improved strength and stability, and improved ease with transfers, lifting/carrying, and proper mechanics with ADL?s AND IADL?s. , goal partially met Transfers: Pt will demo improved ease with sit<>stand with min UE A and improved eccentric control for decreased fall risk and improved ease with transfers. , goal partially met LEFS, Pt will report subjective improvement with score on LEFS improved by >/= 5 points for return to PLOF, improved QOL, and improved ease with ADL?s AND IADL?s. , goal met Planned interventions include: aquatic therapy, cryotherapy, dry needling, education/instruction, electrical stimulation, gait training, home program, hot pack, kinesiotaping, manual therapy, neuromuscular re-education, self care/home management, therapeutic activities, therapeutic exercises and IASTM/CUPPING. Frequency and duration: 2 time(s) a week, for 4 weeks, for 15 total POC visits. Potential to achieve rehab goals is good Continue to progress balance, proprioception and R hip strength. Continue quad stretching and STM to R quad, ITB and hip flexor. Progress with POC, as tolerated. Assessment Pt entered clinic ambulating w/ a hesitated step through gait pattern utilizing a standard cane. Pt shows great upright posture, good jeimy, but still spends more time WB through the L. Pt moderately fatigued w/ exercises observed w/ heavy breathing and needing to take a few sitting rest breaks. Pt shows good determination and understanding of proper form w/ all exercises. Addition of SLS, lateral step downs for increasing hip strength. Standing quad stretch to help decreased mm tightness, STM to work through it and advised pt to keep doing it at home. Pt was able to walk short distances around clinic w/o standard cane. Treatment provided by LINDA Mcdermott under the direct supervision of Katiana Guzman PTA. Adult Risk Screening There are no spiritual/cultural practices/values/needs that are important to know Initial Fall Risk Screening: MISAEL has not fallen in the last 6 months. MISAEL has a fear of falling. She needs assistance with . Needs assistance walking in her home. She needs assistance in an unfamiliar setting. The patient is using an assistive device. Fall Risk Screening: Patient is identified as a fall risk. Care Plan: Moderate Risk: Low risk interventions plus: do not leave patient on exam table unattended, supervised activity, educate patient/family on falls prevention, review safety initiatives with patient/family, family at bedside as allowed, yellow falls risk band, focus rounding attention, locate patient in area of high visibility, wheelchair, bed, or personal alarm, bedside commode, elevated toilet seat and pharmacy consult for medication concerns. Please identify location of pain: R thigh. Pain Quality: aching. The pain makes it hard for the patient to do these things: walking, exercise, sleep, relationships with family or friends and self-care (bathing, dressing, eating). Living Will. Living Will: Living will on file. Healthcare POA: Health care proxy on file. Declaration of Mental Health Treatment: Declaration of mental health treatment on file. Domestic Violence Screen: Does not feel threatened or abused physically, emotionally or sexually. Do you feel UNSAFE? The patient feels safe in the home. Depression/Suicide Screening: During the past 2 weeks, the patient has not felt down, depressed or hopeless. During the past 2 weeks, the patient has not felt little interest or pleasure in doing things. Insurance Insurance reviewed Visit number: 18 Authorization not required after evaluation POC: [employer] Supervising PT: Alejandra Cutler PT, DPT, K[place] DN PT Dx: M25.551; M25.651; R26.9; Z74.09; Z96.641 Medicare Certification Period: Beginnin2022 Endin2022 Subjective Patient reports:. Pt states today was her first day w (more content not included)... Normal [facility] PT Progress Noteon 3 PT Progress Note Therapy Diagnosis Assessed Impaired transfers (781.99) (Z74.09) Decreased range of right hip movement (719.55) (M25.651) Gait abnormality (781.2) (R26.9) Hip pain, right (719.45) (M25.551) History of right hip replacement (V43.64) (Z96.641) Plan Goals: Goals set and discussed today. By discharge MISAEL MEDINA will achieve the following goals: Pt will demo and report compliance with HEP in order to augment POC goals and progression toward independence with symptom management for better outcomes once D/C from POC. , by week 2, goal met Activity Limitation: Pt will demo improved ease with ascending/descending 2 steps with reciprocal pattern and improved eccentric control to decrease fall risk. , goal partially met Gait/Locomotion: Pt will demo improved gait mechanics with least restrictive device, even step length, stance time, proper heel strike and push off, and min-no evidence of instability or antalgic gait for return to PLOF. , goal partially met Strength: Pt will demo improved MMT by >/= 1 point on 0-5 point scale in BLE's for improved strength and stability, and improved ease with transfers, lifting/carrying, and proper mechanics with ADL?s AND IADL?s. , goal partially met Transfers: Pt will demo improved ease with sit<>stand with min UE A and improved eccentric control for decreased fall risk and improved ease with transfers. , goal partially met LEFS, Pt will report subjective improvement with score on LEFS improved by >/= 5 points for return to PLOF, improved QOL, and improved ease with ADL?s AND IADL?s. , goal met Planned interventions include: aquatic therapy, cryotherapy, dry needling, education/instruction, electrical stimulation, gait training, home program, hot pack, kinesiotaping, manual therapy, neuromuscular re-education, self care/home management, therapeutic activities, therapeutic exercises and IASTM/CUPPING. Frequency and duration: 2 time(s) a week, for 4 weeks, for 15 total POC visits. Potential to achieve rehab goals is good Progress strength and balance and strength for community and home ambulation and ease of ADL's. Progress with POC, as tolerated. Assessment Patient identified by name and date of . Patient required cues to increase with upright posture throughout treatment from fwd flexed. Patient required several standing rest breaks due to report of increased fatigue this date. She required cues to slow down with exercises and focus on eccentric control. Adult Risk Screening There are no spiritual/cultural practices/values/needs that are important to know Initial Fall Risk Screening: MISAEL has not fallen in the last 6 months. MISAEL has a fear of falling. She needs assistance with . Needs assistance walking in her home. She needs assistance in an unfamiliar setting. The patient is using an assistive device. Fall Risk Screening: Patient is identified as a fall risk. Care Plan: Moderate Risk: Low risk interventions plus: do not leave patient on exam table unattended, supervised activity, educate patient/family on falls prevention, review safety initiatives with patient/family, family at bedside as allowed, yellow falls risk band, focus rounding attention, locate patient in area of high visibility, wheelchair, bed, or personal alarm, bedside commode, elevated toilet seat and pharmacy consult for medication concerns. Pain Scale: On a scale of 0 to 10, the patient rates the pain at 3. Please identify location of pain: R thigh. Pain Quality: aching. The pain makes it hard for the patient to do these things: walking, exercise, sleep, relationships with family or friends and self-care (bathing, dressing, eating). Living Will. Living Will: Living will on file. Healthcare POA: Health care proxy on file. Declaration of Mental Health Treatment: Declaration of mental health treatment on file. Domestic Violence Screen: Does not feel threatened or abused physically, emotionally or sexually. Do you feel UNSAFE? The patient feels safe in the home. Depression/Suicide Screening: During the past 2 weeks, the patient has not felt down, depressed or hopeless. During the past 2 weeks, the patient has not felt little interest or pleasure in doing things. Insurance Insurance reviewed Visit number: 17 Authorization not required after evaluation POC: [employer] Supervising PT: Alejandra Cutler PT, DPT, Cert DN PT Dx: M25.551; M25.651; R26.9; Z74.09; Z96.641 Medicare Certification Period: Beginnin2022 Endin2022 Subjective Patient reports:. Patient reported she has been using her cane more at home and not her walker. She reported 1/10 pain with fatigue after treatment. Home program performing as directed: Yes. Precautions: post-op movement restrictions: Posterior Hip Precautions. Fall Risk: moderate Htn . Treatment Time in clinic started at 10:45 Time in clinic ended at 11:30 Total time in clinic is 45 minutes. Total timed cod (more content not included)... [facility] PT Progress Noteon 3 PT Progress Note Therapy Diagnosis Assessed Impaired transfers (781.99) (Z74.09) Decreased range of right hip movement (719.55) (M25.651) Gait abnormality (781.2) (R26.9) Hip pain, right (719.45) (M25.551) History of right hip replacement (V43.64) (Z96.641) Plan Goals: Goals set and discussed today. By discharge MISAEL MEDINA will achieve the following goals: Pt will demo and report compliance with HEP in order to augment POC goals and progression toward independence with symptom management for better outcomes once D/C from POC. , by week 2, goal met Activity Limitation: Pt will demo improved ease with ascending/descending 2 steps with reciprocal pattern and improved eccentric control to decrease fall risk. , goal partially met Gait/Locomotion: Pt will demo improved gait mechanics with least restrictive device, even step length, stance time, proper heel strike and push off, and min-no evidence of instability or antalgic gait for return to PLOF. , goal partially met Strength: Pt will demo improved MMT by >/= 1 point on 0-5 point scale in BLE's for improved strength and stability, and improved ease with transfers, lifting/carrying, and proper mechanics with ADL?s AND IADL?s. , goal partially met Transfers: Pt will demo improved ease with sit<>stand with min UE A and improved eccentric control for decreased fall risk and improved ease with transfers. , goal partially met LEFS, Pt will report subjective improvement with score on LEFS improved by >/= 5 points for return to PLOF, improved QOL, and improved ease with ADL?s AND IADL?s. , goal met Planned interventions include: aquatic therapy, cryotherapy, dry needling, education/instruction, electrical stimulation, gait training, home program, hot pack, kinesiotaping, manual therapy, neuromuscular re-education, self care/home management, therapeutic activities, therapeutic exercises and IASTM/CUPPING. Frequency and duration: 2 time(s) a week, for 4 weeks, for 15 total POC visits. Potential to achieve rehab goals is good Progress strength and balance and strength for community and home ambulation and ease of ADL's. Progress with POC, as tolerated. Assessment Arrived to PT fatigued this date and needed standing rests between each exercises. Progressed to dowel and bungee taps for progression from cone taps to facilitate improved LE control and proprioception. Patient arrived with rollator but would ambulate around clinic w/out using it short distances. Difficulty with bridges d/t weakness. Patient was able to complete today's treatment with some difficulty. Adult Risk Screening There are no spiritual/cultural practices/values/needs that are important to know Initial Fall Risk Screening: MISAEL has not fallen in the last 6 months. MISAEL has a fear of falling. She needs assistance with . Needs assistance walking in her home. She needs assistance in an unfamiliar setting. The patient is using an assistive device. Fall Risk Screening: Patient is identified as a fall risk. Care Plan: Moderate Risk: Low risk interventions plus: do not leave patient on exam table unattended, supervised activity, educate patient/family on falls prevention, review safety initiatives with patient/family, family at bedside as allowed, yellow falls risk band, focus rounding attention, locate patient in area of high visibility, wheelchair, bed, or personal alarm, bedside commode, elevated toilet seat and pharmacy consult for medication concerns. The pain makes it hard for the patient to do these things: walking, exercise, sleep, relationships with family or friends and self-care (bathing, dressing, eating). Living Will. Living Will: Living will on file. Healthcare POA: Health care proxy on file. Declaration of Mental Health Treatment: Declaration of mental health treatment on file. Domestic Violence Screen: Does not feel threatened or abused physically, emotionally or sexually. Do you feel UNSAFE? The patient feels safe in the home. Depression/Suicide Screening: During the past 2 weeks, the patient has not felt down, depressed or hopeless. During the past 2 weeks, the patient has not felt little interest or pleasure in doing things. Insurance Insurance reviewed Visit number: 16 Authorization not required after evaluation POC: [employer] Supervising PT: Alejandra Cutler PT, DPT, [place] DN PT Dx: M25.551; M25.651; R26.9; Z74.09; Z96.641 Medicare Certification Period: Beginnin2022 Endin2022 Subjective Patient reports:. Patient reports that she is more sore today. States that she has been walking around her kitchen w/out any AD. Current pain 12/25 and described as an ache. Patient reports noticing leg length difference when doing Patient identified by name and date of . Home program performing as directed: Yes. Precautions: post-op movement restrictions: Posterior Hip Precautions. Fall Risk: moderate Htn . Treatment Time in clinic (more content not included)... Normal [facility] PT Progress Noteon 3 PT Progress Note Therapy Diagnosis Assessed Impaired transfers (781.99) (Z74.09) Decreased range of right hip movement (719.55) (M25.651) Gait abnormality (781.2) (R26.9) Hip pain, right (719.45) (M25.551) History of right hip replacement (V43.64) (Z96.641) Plan Goals: Goals set and discussed today. By discharge MISAEL MEDINA will achieve the following goals: Pt will demo and report compliance with HEP in order to augment POC goals and progression toward independence with symptom management for better outcomes once D/C from POC. , by week 2, goal met Activity Limitation: Pt will demo improved ease with ascending/descending 2 steps with reciprocal pattern and improved eccentric control to decrease fall risk. , goal partially met Gait/Locomotion: Pt will demo improved gait mechanics with least restrictive device, even step length, stance time, proper heel strike and push off, and min-no evidence of instability or antalgic gait for return to PLOF. , goal partially met Strength: Pt will demo improved MMT by >/= 1 point on 0-5 point scale in BLE's for improved strength and stability, and improved ease with transfers, lifting/carrying, and proper mechanics with ADL?s AND IADL?s. , goal partially met Transfers: Pt will demo improved ease with sit<>stand with min UE A and improved eccentric control for decreased fall risk and improved ease with transfers. , goal partially met LEFS, Pt will report subjective improvement with score on LEFS improved by >/= 5 points for return to PLOF, improved QOL, and improved ease with ADL?s AND IADL?s. , goal met Planned interventions include: aquatic therapy, cryotherapy, dry needling, education/instruction, electrical stimulation, gait training, home program, hot pack, kinesiotaping, manual therapy, neuromuscular re-education, self care/home management, therapeutic activities, therapeutic exercises and IASTM/CUPPING. Frequency and duration: 2 time(s) a week, for 4 weeks, for 15 total POC visits. Potential to achieve rehab goals is good Progress strength and balance and strength for community and home ambulation and ease of ADL's. Progress with POC, as tolerated. Assessment Pt reassessed this date by supervising PT with improvements noted in Right hip MMT as well as improved functional endurance/activity tolerance. Pt reports subjective improvement with LEFS score improving to 52/80 this date. Presents with myofascial restriction throughout RLE musculature, which responded well to STM this date. Pt with difficulty achieving TKE on RLE but even with slightly flexed Right knee, presented with LLE possibly shorter this date. Added Standing HS stretch with hip precautions and TKE with improved knee extension, but still limited. Pt continues to have flexed trunk with use of rollator, but demonstrates improved upright posture ambulating for short distances without rollator. Fatigues quickly still. Pt making good progress towards all POC goals and has attended 14 skilled sessions at this time, but still functionally limited and would benefit from continued skilled PT with focus on progression towards PLOF and independence with symptom management. Patient was able to complete today's treatment with some difficulty. Adult Risk Screening There are no spiritual/cultural practices/values/needs that are important to know Initial Fall Risk Screening: MISAEL has not fallen in the last 6 months. MISAEL has a fear of falling. She needs assistance with . Needs assistance walking in her home. She needs assistance in an unfamiliar setting. The patient is using an assistive device. Fall Risk Screening: Patient is identified as a fall risk. Care Plan: Moderate Risk: Low risk interventions plus: do not leave patient on exam table unattended, supervised activity, educate patient/family on falls prevention, review safety initiatives with patient/family, family at bedside as allowed, yellow falls risk band, focus rounding attention, locate patient in area of high visibility, wheelchair, bed, or personal alarm, bedside commode, elevated toilet seat and pharmacy consult for medication concerns. Pain Scale: On a scale of 0 to 10, the patient rates the pain at 1. The pain makes it hard for the patient to do these things: walking, exercise, sleep, relationships with family or friends and self-care (bathing, dressing, eating). Living Will. Living Will: Living will on file. Healthcare POA: Health care proxy on file. Declaration of Mental Health Treatment: Declaration of mental health treatment on file. Domestic Violence Screen: Does not feel threatened or abused physically, emotionally or sexually. Do you feel UNSAFE? The patient feels safe in the home. Depression/Suicide Screening: During the past 2 weeks, the patient has not felt down, depressed or hopeless. During the past 2 weeks, the patient has not felt little interest or pleasure in doing things. Insurance Insurance reviewed Visit number: 14 Authorization (more content not included)... Normal [facility] Therapy Re-eval Noteon 01-11 Therapy Re-eval Note Therapy Diagnosis Assessed 1. Impaired transfers (781.99) (Z74.09) 2. Decreased range of right hip movement (719.55) (M25.651) 3. Gait abnormality (781.2) (R26.9) 4. Hip pain, right (719.45) (M25.551) 5. History of right hip replacement (V43.64) (Z96.641) Plan Goals: Goals set and discussed today. By discharge MISAEL MEDINA will achieve the following goals: Pt will demo and report compliance with HEP in order to augment POC goals and progression toward independence with symptom management for better outcomes once D/C from POC. , by week 2, goal met Activity Limitation: Pt will demo improved ease with ascending/descending 2 steps with reciprocal pattern and improved eccentric control to decrease fall risk. , goal partially met Gait/Locomotion: Pt will demo improved gait mechanics with least restrictive device, even step length, stance time, proper heel strike and push off, and min-no evidence of instability or antalgic gait for return to PLOF. , goal partially met Strength: Pt will demo improved MMT by >/= 1 point on 0-5 point scale in BLE's for improved strength and stability, and improved ease with transfers, lifting/carrying, and proper mechanics with ADL?s AND IADL?s. , goal partially met Transfers: Pt will demo improved ease with sit<>stand with min UE A and improved eccentric control for decreased fall risk and improved ease with transfers. , goal partially met LEFS, Pt will report subjective improvement with score on LEFS improved by >/= 5 points for return to PLOF, improved QOL, and improved ease with ADL?s AND IADL?s. , goal met Planned interventions include: aquatic therapy, cryotherapy, dry needling, education/instruction, electrical stimulation, gait training, home program, hot pack, kinesiotaping, manual therapy, neuromuscular re-education, self care/home management, therapeutic activities, therapeutic exercises and IASTM/CUPPING. Frequency and duration: 2 time(s) a week, for 4 weeks, for 15 total POC visits. Potential to achieve rehab goals is good Progress strength and balance and strength for community and home ambulation and ease of ADL's. Progress with POC, as tolerated. Assessment Pt reassessed this date by supervising PT with improvements noted in Right hip MMT as well as improved functional endurance/activity tolerance. Pt reports subjective improvement with LEFS score improving to 52/80 this date. Presents with myofascial restriction throughout RLE musculature, which responded well to STM this date. Pt with difficulty achieving TKE on RLE but even with slightly flexed Right knee, presented with LLE possibly shorter this date. Added Standing HS stretch with hip precautions and TKE with improved knee extension, but still limited. Pt continues to have flexed trunk with use of rollator, but demonstrates improved upright posture ambulating for short distances without rollator. Fatigues quickly still. Pt making good progress towards all POC goals and has attended 14 skilled sessions at this time, but still functionally limited and would benefit from continued skilled PT with focus on progression towards PLOF and independence with symptom management. Patient was able to complete today's treatment with some difficulty. Adult Risk Screening There are no spiritual/cultural practices/values/needs that are important to know Initial Fall Risk Screening: MSIAEL has not fallen in the last 6 months. MISAEL has a fear of falling. She needs assistance with . Needs assistance walking in her home. She needs assistance in an unfamiliar setting. The patient is using an assistive device. Fall Risk Screening: Patient is identified as a fall risk. Care Plan: Moderate Risk: Low risk interventions plus: do not leave patient on exam table unattended, supervised activity, educate patient/family on falls prevention, review safety initiatives with patient/family, family at bedside as allowed, yellow falls risk band, focus rounding attention, locate patient in area of high visibility, wheelchair, bed, or personal alarm, bedside commode, elevated toilet seat and pharmacy consult for medication concerns. Pain Scale: On a scale of 0 to 10, the patient rates the pain at 1. The pain makes it hard for the patient to do these things: walking, exercise, sleep, relationships with family or friends and self-care (bathing, dressing, eating). Living Will. Living Will: Living will on file. Healthcare POA: Health care proxy on file. Declaration of Mental Health Treatment: Declaration of mental health treatment on file. Domestic Violence Screen: Does not feel threatened or abused physically, emotionally or sexually. Do you feel UNSAFE? The patient feels safe in the home. Depression/Suicide Screening: During the past 2 weeks, the patient has not felt down, depressed or hopeless. During the past 2 weeks, the patient has not felt little interest or pleasure in doing things. Insurance Insurance reviewed Visit number: 14 (more content not included)... Normal [facility] PT Progress Noteon 3 PT Progress Note Therapy Diagnosis Assessed Decreased range of right hip movement (719.55) (M25.651) Gait abnormality (781.2) (R26.9) Hip pain, right (719.45) (M25.551) History of right hip replacement (V43.64) (Z96.641) Impaired transfers (781.99) (Z74.09) Plan Goals: Goals set and discussed today. By discharge MISAEL MEDINA will achieve the following goals: Pt will demo and report compliance with HEP in order to augment POC goals and progression toward independence with symptom management for better outcomes once D/C from POC. , by week 2, goal met Activity Limitation: Pt will demo improved ease with ascending/descending 2 steps with reciprocal pattern and improved eccentric control to decrease fall risk. , goal partially met Gait/Locomotion: Pt will demo improved gait mechanics with least restrictive device, even step length, stance time, proper heel strike and push off, and min-no evidence of instability or antalgic gait for return to PLOF. , goal partially met Strength: Pt will demo improved MMT by >/= 1 point on 0-5 point scale in BLE's for improved strength and stability, and improved ease with transfers, lifting/carrying, and proper mechanics with ADL?s AND IADL?s. , goal partially met Transfers: Pt will demo improved ease with sit<>stand with min UE A and improved eccentric control for decreased fall risk and improved ease with transfers. , goal partially met LEFS, Pt will report subjective improvement with score on LEFS improved by >/= 5 points for return to PLOF, improved QOL, and improved ease with ADL?s AND IADL?s. , goal met Planned interventions include: aquatic therapy, cryotherapy, dry needling, education/instruction, electrical stimulation, gait training, home program, hot pack, kinesiotaping, manual therapy, neuromuscular re-education, self care/home management, therapeutic activities, therapeutic exercises and IASTM/CUPPING. Frequency and duration: 2 time(s) a week, for 4 weeks, for 15 total POC visits. Potential to achieve rehab goals is good Progress strength and balance and strength for community and home ambulation and ease of ADL's. Progress with POC, as tolerated. Assessment Added Airex to staggered balance (N) Added BOSU this date with running man and mini lunges for improved balance and safety for ADL's. Observed patient ambulate 10 feet in clinic w/out any AD. Adult Risk Screening There are no spiritual/cultural practices/values/needs that are important to know Initial Fall Risk Screening: MISAEL has not fallen in the last 6 months. MISAEL has a fear of falling. She needs assistance with . Needs assistance walking in her home. She needs assistance in an unfamiliar setting. The patient is using an assistive device. Fall Risk Screening: Patient is identified as a fall risk. Care Plan: Moderate Risk: Low risk interventions plus: do not leave patient on exam table unattended, supervised activity, educate patient/family on falls prevention, review safety initiatives with patient/family, family at bedside as allowed, yellow falls risk band, focus rounding attention, locate patient in area of high visibility, wheelchair, bed, or personal alarm, bedside commode, elevated toilet seat and pharmacy consult for medication concerns. The pain makes it hard for the patient to do these things: walking, exercise, sleep, relationships with family or friends and self-care (bathing, dressing, eating). Living Will. Living Will: Living will on file. Healthcare POA: Health care proxy on file. Declaration of Mental Health Treatment: Declaration of mental health treatment on file. Domestic Violence Screen: Does not feel threatened or abused physically, emotionally or sexually. Do you feel UNSAFE? The patient feels safe in the home. Depression/Suicide Screening: During the past 2 weeks, the patient has not felt down, depressed or hopeless. During the past 2 weeks, the patient has not felt little interest or pleasure in doing things. Insurance Insurance reviewed Visit number: 14 Authorization not required after evaluation POC: 07/30 [employer] Supervising PT: Alejandra Cutler PT, DPT, Cert DN PT Dx: M25.551; M25.651; R26.9; Z74.09; Z96.641 Medicare Certification Period: Beginnin2022 Endin2022 Subjective Patient reports:. [facility] reports [facility]. States that 0/10 pain currently. Patient identified by name and date of . Home program performing as directed: Yes. Precautions: post-op movement restrictions: Posterior Hip Precautions. Fall Risk: moderate Htn . Treatment Time in clinic started at 1:15 Time in clinic ended at 2:02 Total time in clinic is 47 minutes. Total timed code time is 44 minutes. Therapeutic exercise (18246): timed minutes 18, units 1 . NuStep 5' LvL 1.5 slant board 1' x 2 Standing heel raises 2 x 10 Airex Standing hip flexor stretch 10 x 10 Seated LAQ + Hip A (more content not included)... Normal [facility] PT Progress Noteon 3 PT Progress Note Therapy Diagnosis Assessed Decreased range of right hip movement (719.55) (M25.651) Gait abnormality (781.2) (R26.9) Hip pain, right (719.45) (M25.551) History of right hip replacement (V43.64) (Z96.641) Impaired transfers (781.99) (Z74.09) Plan Goals: Goals set and discussed today. By discharge MISAEL MEDINA will achieve the following goals: Pt will demo and report compliance with HEP in order to augment POC goals and progression toward independence with symptom management for better outcomes once D/C from POC. , by week 2, goal met Activity Limitation: Pt will demo improved ease with ascending/descending 2 steps with reciprocal pattern and improved eccentric control to decrease fall risk. , goal partially met Gait/Locomotion: Pt will demo improved gait mechanics with least restrictive device, even step length, stance time, proper heel strike and push off, and min-no evidence of instability or antalgic gait for return to PLOF. , goal partially met Strength: Pt will demo improved MMT by >/= 1 point on 0-5 point scale in BLE's for improved strength and stability, and improved ease with transfers, lifting/carrying, and proper mechanics with ADL?s AND IADL?s. , goal partially met Transfers: Pt will demo improved ease with sit<>stand with min UE A and improved eccentric control for decreased fall risk and improved ease with transfers. , goal partially met LEFS, Pt will report subjective improvement with score on LEFS improved by >/= 5 points for return to PLOF, improved QOL, and improved ease with ADL?s AND IADL?s. , goal met Planned interventions include: aquatic therapy, cryotherapy, dry needling, education/instruction, electrical stimulation, gait training, home program, hot pack, kinesiotaping, manual therapy, neuromuscular re-education, self care/home management, therapeutic activities, therapeutic exercises and IASTM/CUPPING. Frequency and duration: 2 time(s) a week, for 4 weeks, for 15 total POC visits. Potential to achieve rehab goals is good Continue to work on strength and balance for continued progression for gait and ADL's. Progress with POC, as tolerated. Assessment Added Airex to select standing PRE's. Progressed time with SLS with patient needing external support d/t difficulty. Observed improved jeimy and upright posture with gait with rollator. Needed 2 seated rest breaks throughout session. Adult Risk Screening There are no spiritual/cultural practices/values/needs that are important to know Initial Fall Risk Screening: MISAEL has not fallen in the last 6 months. MISAEL has a fear of falling. She needs assistance with . Needs assistance walking in her home. She needs assistance in an unfamiliar setting. The patient is using an assistive device. Fall Risk Screening: Patient is identified as a fall risk. Care Plan: Moderate Risk: Low risk interventions plus: do not leave patient on exam table unattended, supervised activity, educate patient/family on falls prevention, review safety initiatives with patient/family, family at bedside as allowed, yellow falls risk band, focus rounding attention, locate patient in area of high visibility, wheelchair, bed, or personal alarm, bedside commode, elevated toilet seat and pharmacy consult for medication concerns. The pain makes it hard for the patient to do these things: walking, exercise, sleep, relationships with family or friends and self-care (bathing, dressing, eating). Living Will. Living Will: Living will on file. Healthcare POA: Health care proxy on file. Declaration of Mental Health Treatment: Declaration of mental health treatment on file. Domestic Violence Screen: Does not feel threatened or abused physically, emotionally or sexually. Do you feel UNSAFE? The patient feels safe in the home. Depression/Suicide Screening: During the past 2 weeks, the patient has not felt down, depressed or hopeless. During the past 2 weeks, the patient has not felt little interest or pleasure in doing things. Insurance Insurance reviewed Visit number: 13 Authorization not required after evaluation POC: 07/30 [employer] Supervising PT: Alejandra Cutler PT, DPT, Cert DN PT Dx: M25.551; M25.651; R26.9; Z74.09; Z96.641 Medicare Certification Period: Beginnin2022 Endin2022 Subjective Patient reports:. Patient reports that she Patient reports she will be going to watch [employer] basketball tournament tomorrow and will riding 2 hours tomorrow. Current pain level 1/10 described as uncomfortable and tender. Patient identified by name and date of . Home program performing as directed: Yes. Precautions: post-op movement restrictions: Posterior Hip Precautions. Fall Risk: moderate Htn . Treatment Time in clinic started at 1:15 Time in clinic ended at 2:02 Total time in clinic is 47 minutes. Total timed code time is 47 minutes. Therapeutic exercise (09093): timed minutes 17, units 1 . NuStep 5' (more content not included)... Normal [facility] PT Progress Noteon 3 PT Progress Note Therapy Diagnosis Assessed Decreased range of right hip movement (719.55) (M25.651) Gait abnormality (781.2) (R26.9) Hip pain, right (719.45) (M25.551) History of right hip replacement (V43.64) (Z96.641) Impaired transfers (781.99) (Z74.09) Plan Goals: Goals set and discussed today. By discharge MISAEL MEDINA will achieve the following goals: Pt will demo and report compliance with HEP in order to augment POC goals and progression toward independence with symptom management for better outcomes once D/C from POC. , by week 2, goal met Activity Limitation: Pt will demo improved ease with ascending/descending 2 steps with reciprocal pattern and improved eccentric control to decrease fall risk. , goal partially met Gait/Locomotion: Pt will demo improved gait mechanics with least restrictive device, even step length, stance time, proper heel strike and push off, and min-no evidence of instability or antalgic gait for return to PLOF. , goal partially met Strength: Pt will demo improved MMT by >/= 1 point on 0-5 point scale in BLE's for improved strength and stability, and improved ease with transfers, lifting/carrying, and proper mechanics with ADL?s AND IADL?s. , goal partially met Transfers: Pt will demo improved ease with sit<>stand with min UE A and improved eccentric control for decreased fall risk and improved ease with transfers. , goal partially met LEFS, Pt will report subjective improvement with score on LEFS improved by >/= 5 points for return to PLOF, improved QOL, and improved ease with ADL?s AND IADL?s. , goal met Planned interventions include: aquatic therapy, cryotherapy, dry needling, education/instruction, electrical stimulation, gait training, home program, hot pack, kinesiotaping, manual therapy, neuromuscular re-education, self care/home management, therapeutic activities, therapeutic exercises and IASTM/CUPPING. Frequency and duration: 2 time(s) a week, for 4 weeks, for 15 total POC visits. Potential to achieve rehab goals is good Continue to work on strength and upright posture for weaning from rollator to cane for gait in the near future. Progress with POC, as tolerated. Assessment Added slant board this date to help ease tightness in back of the leg. Improved jeimy with gait with use of rollator. Step ups were added to facilitate improved concentric and eccentric control. Improved ability to complete PRE's and NMRE this date with decreased fatigue and needed . Adult Risk Screening There are no spiritual/cultural practices/values/needs that are important to know Initial Fall Risk Screening: MISAEL has not fallen in the last 6 months. MISAEL has a fear of falling. She needs assistance with . Needs assistance walking in her home. She needs assistance in an unfamiliar setting. The patient is using an assistive device. Fall Risk Screening: Patient is identified as a fall risk. Care Plan: Moderate Risk: Low risk interventions plus: do not leave patient on exam table unattended, supervised activity, educate patient/family on falls prevention, review safety initiatives with patient/family, family at bedside as allowed, yellow falls risk band, focus rounding attention, locate patient in area of high visibility, wheelchair, bed, or personal alarm, bedside commode, elevated toilet seat and pharmacy consult for medication concerns. The pain makes it hard for the patient to do these things: walking, exercise, sleep, relationships with family or friends and self-care (bathing, dressing, eating). Living Will. Living Will: Living will on file. Healthcare POA: Health care proxy on file. Declaration of Mental Health Treatment: Declaration of mental health treatment on file. Domestic Violence Screen: Does not feel threatened or abused physically, emotionally or sexually. Do you feel UNSAFE? The patient feels safe in the home. Depression/Suicide Screening: During the past 2 weeks, the patient has not felt down, depressed or hopeless. During the past 2 weeks, the patient has not felt little interest or pleasure in doing things. Insurance Insurance reviewed Visit number: 11 Authorization not required after evaluation POC: 07/30 [employer] Supervising PT: Alejandra Cutler PT, DPT, Cert DN PT Dx: M25.551; M25.651; R26.9; Z74.09; Z96.641 Medicare Certification Period: Beginnin2022 Endin2022 Subjective Patient reports:. Patient had F/U with MD and goes back in 6 weeks. Is to use walker for 2 more weeks. States MD said soreness is normal. Current pain /10 currently. Patient identified by name and date of . Home program performing as directed: Yes. Precautions: post-op movement restrictions: Posterior Hip Precautions. Fall Risk: moderate Htn . Treatment Time in clinic started at 1:15 Time in clinic ended at 2:00 Total time in clinic is 45 minutes. Total timed code time is 43 minutes. Therapeutic exercise (38387): timed minute (more content not included)... [facility] PT Progress Note Therapy Diagnosis Assessed Decreased range of right hip movement (719.55) (M25.651) Gait abnormality (781.2) (R26.9) Hip pain, right (719.45) (M25.551) History of right hip replacement (V43.64) (Z96.641) Impaired transfers (781.99) (Z74.09) Plan Goals: Goals set and discussed today. By discharge MISAEL MEDINA will achieve the following goals: Pt will demo and report compliance with HEP in order to augment POC goals and progression toward independence with symptom management for better outcomes once D/C from POC. , by week 2, goal met Activity Limitation: Pt will demo improved ease with ascending/descending 2 steps with reciprocal pattern and improved eccentric control to decrease fall risk. , goal partially met Gait/Locomotion: Pt will demo improved gait mechanics with least restrictive device, even step length, stance time, proper heel strike and push off, and min-no evidence of instability or antalgic gait for return to PLOF. , goal partially met Strength: Pt will demo improved MMT by >/= 1 point on 0-5 point scale in BLE's for improved strength and stability, and improved ease with transfers, lifting/carrying, and proper mechanics with ADL?s AND IADL?s. , goal partially met Transfers: Pt will demo improved ease with sit<>stand with min UE A and improved eccentric control for decreased fall risk and improved ease with transfers. , goal partially met LEFS, Pt will report subjective improvement with score on LEFS improved by >/= 5 points for return to PLOF, improved QOL, and improved ease with ADL?s AND IADL?s. , goal met Planned interventions include: aquatic therapy, cryotherapy, dry needling, education/instruction, electrical stimulation, gait training, home program, hot pack, kinesiotaping, manual therapy, neuromuscular re-education, self care/home management, therapeutic activities, therapeutic exercises and IASTM/CUPPING. Frequency and duration: 2 time(s) a week, for 4 weeks, for 15 total POC visits. Potential to achieve rehab goals is good Continue to work on strength and upright posture for weaning from rollator to cane for gait in the near future. Progress with POC, as tolerated. Assessment Brought standard cane for gait training. completed 2 laps in // bars with cane but [facility] and instead opted to use rollator. Made sure cane height was proper height. Continues with mild knee flexion in stance phase of gait but patient was attempting to stand with more upright posture. Fatigues quickly with standing PRE's. Adult Risk Screening There are no spiritual/cultural practices/values/needs that are important to know Initial Fall Risk Screening: MISAEL has not fallen in the last 6 months. MISAEL has a fear of falling. She needs assistance with . Needs assistance walking in her home. She needs assistance in an unfamiliar setting. The patient is using an assistive device. Fall Risk Screening: Patient is identified as a fall risk. Care Plan: Moderate Risk: Low risk interventions plus: do not leave patient on exam table unattended, supervised activity, educate patient/family on falls prevention, review safety initiatives with patient/family, family at bedside as allowed, yellow falls risk band, focus rounding attention, locate patient in area of high visibility, wheelchair, bed, or personal alarm, bedside commode, elevated toilet seat and pharmacy consult for medication concerns. The pain makes it hard for the patient to do these things: walking, exercise, sleep, relationships with family or friends and self-care (bathing, dressing, eating). Living Will. Living Will: Living will on file. Healthcare POA: Health care proxy on file. Declaration of Mental Health Treatment: Declaration of mental health treatment on file. Domestic Violence Screen: Does not feel threatened or abused physically, emotionally or sexually. Do you feel UNSAFE? The patient feels safe in the home. Depression/Suicide Screening: During the past 2 weeks, the patient has not felt down, depressed or hopeless. During the past 2 weeks, the patient has not felt little interest or pleasure in doing things. Insurance Insurance reviewed Visit number: 11 Authorization not required after evaluation POC: 07/30 [employer] Supervising PT: Alejandra Cutler PT, DPT, Cert DN PT Dx: M25.551; M25.651; R26.9; Z74.09; Z96.641 Medicare Certification Period: Beginnin2022 Endin2022 Subjective Patient reports:. Patient reports that she is having mild pain in the R glute region. States that she has has been working on getting her knee down flat on the bed. States that she is still feeing very fatigued since having her cold. States that she brought her cane today to work with gait. Patient identified by name and date of . Home program performing as directed: Yes. Precautions: post-op movement restrictions: Posterior Hip Precautions. Fall Risk: moderate (more content not included)... Normal [facility] PT Progress Noteon 3 PT Progress Note Therapy Diagnosis Assessed Decreased range of right hip movement (719.55) (M25.651) Gait abnormality (781.2) (R26.9) Hip pain, right (719.45) (M25.551) History of right hip replacement (V43.64) (Z96.641) Impaired transfers (781.99) (Z74.09) Plan Goals: Goals set and discussed today. By discharge MISAEL MEDINA will achieve the following goals: Pt will demo and report compliance with HEP in order to augment POC goals and progression toward independence with symptom management for better outcomes once D/C from POC. , by week 2, goal met Activity Limitation: Pt will demo improved ease with ascending/descending 2 steps with reciprocal pattern and improved eccentric control to decrease fall risk. , goal partially met Gait/Locomotion: Pt will demo improved gait mechanics with least restrictive device, even step length, stance time, proper heel strike and push off, and min-no evidence of instability or antalgic gait for return to PLOF. , goal partially met Strength: Pt will demo improved MMT by >/= 1 point on 0-5 point scale in BLE's for improved strength and stability, and improved ease with transfers, lifting/carrying, and proper mechanics with ADL?s AND IADL?s. , goal partially met Transfers: Pt will demo improved ease with sit<>stand with min UE A and improved eccentric control for decreased fall risk and improved ease with transfers. , goal partially met LEFS, Pt will report subjective improvement with score on LEFS improved by >/= 5 points for return to PLOF, improved QOL, and improved ease with ADL?s AND IADL?s. , goal met Planned interventions include: aquatic therapy, cryotherapy, dry needling, education/instruction, electrical stimulation, gait training, home program, hot pack, kinesiotaping, manual therapy, neuromuscular re-education, self care/home management, therapeutic activities, therapeutic exercises and IASTM/CUPPING. Frequency and duration: 2 time(s) a week, for 4 weeks, for 15 total POC visits. Potential to achieve rehab goals is good Continue to progress strength, balance and NMRE for improved gait and work on upright posture as well. Will trial gait with standard cane next date if patient brings it. Progress with POC, as tolerated. Assessment Significant hip flexor spasms this date with STW needed for release of the spasms. Continues to demo knee flexion in stance and at rest. Added more standing PRE's this date to facilitate improved strength, balance and posture. Instructed patient to bring cane next date to work on gait progression since she continues to ambulate with rollator. Adult Risk Screening There are no spiritual/cultural practices/values/needs that are important to know Initial Fall Risk Screening: MISAEL has not fallen in the last 6 months. MISAEL has a fear of falling. She needs assistance with . Needs assistance walking in her home. She needs assistance in an unfamiliar setting. The patient is using an assistive device. Fall Risk Screening: Patient is identified as a fall risk. Care Plan: Moderate Risk: Low risk interventions plus: do not leave patient on exam table unattended, supervised activity, educate patient/family on falls prevention, review safety initiatives with patient/family, family at bedside as allowed, yellow falls risk band, focus rounding attention, locate patient in area of high visibility, wheelchair, bed, or personal alarm, bedside commode, elevated toilet seat and pharmacy consult for medication concerns. The pain makes it hard for the patient to do these things: walking, exercise, sleep, relationships with family or friends and self-care (bathing, dressing, eating). Living Will. Living Will: Living will on file. Healthcare POA: Health care proxy on file. Declaration of Mental Health Treatment: Declaration of mental health treatment on file. Domestic Violence Screen: Does not feel threatened or abused physically, emotionally or sexually. Do you feel UNSAFE? The patient feels safe in the home. Depression/Suicide Screening: During the past 2 weeks, the patient has not felt down, depressed or hopeless. During the past 2 weeks, the patient has not felt little interest or pleasure in doing things. Insurance Insurance reviewed Visit number: 10 Authorization not required after evaluation POC: 07/30 [employer] Supervising PT: Alejandra Cutler PT, DPT, Cert DN PT Dx: M25.551; M25.651; R26.9; Z74.09; Z96.641 Medicare Certification Period: Beginnin2022 Endin2022 Subjective Patient reports:. Patient reports that she is having 2/10 pain in the hip flexor today. HS pain has decreased significantly and bothers her every once in awhile. Expresses interest in trying to ambulate with cane instead of rollator. Patient identified by name and date of . Home program performing as directed: Yes. Precautions: post-op movement restrictions: Posterior Hip Precautions. Fall Risk: moderate Htn . Treatment Ti (more content not included)... Normal [facility] PT Progress Noteon 3 PT Progress Note Therapy Diagnosis Assessed Decreased range of right hip movement (719.55) (M25.651) Gait abnormality (781.2) (R26.9) Hip pain, right (719.45) (M25.551) History of right hip replacement (V43.64) (Z96.641) Impaired transfers (781.99) (Z74.09) Plan Goals: Goals set and discussed today. By discharge MISAEL MEDINA will achieve the following goals: Pt will demo and report compliance with HEP in order to augment POC goals and progression toward independence with symptom management for better outcomes once D/C from POC. , by week 2, goal met Activity Limitation: Pt will demo improved ease with ascending/descending 2 steps with reciprocal pattern and improved eccentric control to decrease fall risk. , goal partially met Gait/Locomotion: Pt will demo improved gait mechanics with least restrictive device, even step length, stance time, proper heel strike and push off, and min-no evidence of instability or antalgic gait for return to PLOF. , goal partially met Strength: Pt will demo improved MMT by >/= 1 point on 0-5 point scale in BLE's for improved strength and stability, and improved ease with transfers, lifting/carrying, and proper mechanics with ADL?s AND IADL?s. , goal partially met Transfers: Pt will demo improved ease with sit<>stand with min UE A and improved eccentric control for decreased fall risk and improved ease with transfers. , goal partially met LEFS, Pt will report subjective improvement with score on LEFS improved by >/= 5 points for return to PLOF, improved QOL, and improved ease with ADL?s AND IADL?s. , goal met Planned interventions include: aquatic therapy, cryotherapy, dry needling, education/instruction, electrical stimulation, gait training, home program, hot pack, kinesiotaping, manual therapy, neuromuscular re-education, self care/home management, therapeutic activities, therapeutic exercises and IASTM/CUPPING. Frequency and duration: 2 time(s) a week, for 4 weeks, for 15 total POC visits. Potential to achieve rehab goals is good Continue to progress strength, balance and NMRE for improved gait and work on upright posture as well. Progress with POC, as tolerated. Assessment Completed STW to HS this date with tightness palpated. Patient also has tightness in HS causing knee flexion at rest. This is contributing to decreased upright posture in standing also. Decreased spasms in the R hip flexor during STW. Added side steps this date with cues to stand with improved upright posture d/t flexing at trunk. Continue to ambulate with rollator. Adult Risk Screening There are no spiritual/cultural practices/values/needs that are important to know Initial Fall Risk Screening: MISAEL has not fallen in the last 6 months. MISAEL has a fear of falling. She needs assistance with . Needs assistance walking in her home. She needs assistance in an unfamiliar setting. The patient is using an assistive device. Fall Risk Screening: Patient is identified as a fall risk. Care Plan: Moderate Risk: Low risk interventions plus: do not leave patient on exam table unattended, supervised activity, educate patient/family on falls prevention, review safety initiatives with patient/family, family at bedside as allowed, yellow falls risk band, focus rounding attention, locate patient in area of high visibility, wheelchair, bed, or personal alarm, bedside commode, elevated toilet seat and pharmacy consult for medication concerns. The pain makes it hard for the patient to do these things: walking, exercise, sleep, relationships with family or friends and self-care (bathing, dressing, eating). Living Will. Living Will: Living will on file. Healthcare POA: Health care proxy on file. Declaration of Mental Health Treatment: Declaration of mental health treatment on file. Domestic Violence Screen: Does not feel threatened or abused physically, emotionally or sexually. Do you feel UNSAFE? The patient feels safe in the home. Depression/Suicide Screening: During the past 2 weeks, the patient has not felt down, depressed or hopeless. During the past 2 weeks, the patient has not felt little interest or pleasure in doing things. Insurance Insurance reviewed Visit number: 9 Authorization not required after evaluation POC: 07/30 [employer] Supervising PT: Alejandra Cutler PT, DPT, Cert DN PT Dx: M25.551; M25.651; R26.9; Z74.09; Z96.641 Medicare Certification Period: Beginnin2022 Endin2022 Subjective Patient reports:. Patient reports that she pulled a muscle in the back of her right leg. Has pain in hamstring when walking. States that hip flexors are not feeling as tight. Patient identified by name and date of . Home program performing as directed: Yes. Precautions: post-op movement restrictions: Posterior Hip Precautions. Fall Risk: moderate Htn . Treatment Time in clinic started at 1:15 Time in clinic ended at 1:56 Total time in clinic is 41 minutes. T (more content not included)... Normal [facility] PT Progress Noteon 3 PT Progress Note Therapy Diagnosis Assessed Decreased range of right hip movement (719.55) (M25.651) Gait abnormality (781.2) (R26.9) Hip pain, right (719.45) (M25.551) History of right hip replacement (V43.64) (Z96.641) Impaired transfers (781.99) (Z74.09) Plan Goals: Goals set and discussed today. By discharge MISAEL MEDINA will achieve the following goals: Pt will demo and report compliance with HEP in order to augment POC goals and progression toward independence with symptom management for better outcomes once D/C from POC. , by week 2, goal met Activity Limitation: Pt will demo improved ease with ascending/descending 2 steps with reciprocal pattern and improved eccentric control to decrease fall risk. , goal partially met Gait/Locomotion: Pt will demo improved gait mechanics with least restrictive device, even step length, stance time, proper heel strike and push off, and min-no evidence of instability or antalgic gait for return to PLOF. , goal partially met Strength: Pt will demo improved MMT by >/= 1 point on 0-5 point scale in BLE's for improved strength and stability, and improved ease with transfers, lifting/carrying, and proper mechanics with ADL?s AND IADL?s. , goal partially met Transfers: Pt will demo improved ease with sit<>stand with min UE A and improved eccentric control for decreased fall risk and improved ease with transfers. , goal partially met LEFS, Pt will report subjective improvement with score on LEFS improved by >/= 5 points for return to PLOF, improved QOL, and improved ease with ADL?s AND IADL?s. , goal met Planned interventions include: aquatic therapy, cryotherapy, dry needling, education/instruction, electrical stimulation, gait training, home program, hot pack, kinesiotaping, manual therapy, neuromuscular re-education, self care/home management, therapeutic activities, therapeutic exercises and IASTM/CUPPING. Frequency and duration: 2 time(s) a week, for 4 weeks, for 15 total POC visits. Potential to achieve rehab goals is good Continue to progress strength, balance and NMRE for improved gait. Progress with POC, as tolerated. Adult Risk Screening There are no spiritual/cultural practices/values/needs that are important to know Initial Fall Risk Screening: MISAEL has not fallen in the last 6 months. MISAEL has a fear of falling. She needs assistance with . Needs assistance walking in her home. She needs assistance in an unfamiliar setting. The patient is using an assistive device. Fall Risk Screening: Patient is identified as a fall risk. Care Plan: Moderate Risk: Low risk interventions plus: do not leave patient on exam table unattended, supervised activity, educate patient/family on falls prevention, review safety initiatives with patient/family, family at bedside as allowed, yellow falls risk band, focus rounding attention, locate patient in area of high visibility, wheelchair, bed, or personal alarm, bedside commode, elevated toilet seat and pharmacy consult for medication concerns. The pain makes it hard for the patient to do these things: walking, exercise, sleep, relationships with family or friends and self-care (bathing, dressing, eating). Living Will. Living Will: Living will on file. Healthcare POA: Health care proxy on file. Declaration of Mental Health Treatment: Declaration of mental health treatment on file. Domestic Violence Screen: Does not feel threatened or abused physically, emotionally or sexually. Do you feel UNSAFE? The patient feels safe in the home. Depression/Suicide Screening: During the past 2 weeks, the patient has not felt down, depressed or hopeless. During the past 2 weeks, the patient has not felt little interest or pleasure in doing things. Insurance Insurance reviewed Visit number: 9 Authorization not required after evaluation POC: 07/30 [employer] Supervising PT: Alejandra Cutler PT, DPT, Kole DN PT Dx: M25.551; M25.651; R26.9; Z74.09; Z96.641 Medicare Certification Period: Beginnin2022 Endin2022 Subjective Patient reports:. Patient reports that she is walking easier and rolling over in bed. States that she is noticing the little things that she forgot she had trouble doing. States that she walked down her steps to leave today and didn't think about it. States that she has not used the W/C in 4 days. Current pain 0/10. Patient identified by name and date of . Home program performing as directed: Yes. Precautions: post-op movement restrictions: Posterior Hip Precautions. Fall Risk: moderate Htn . Treatment Time in clinic started at 1:15 Time in clinic ended at 1:59 Total time in clinic is 44 minutes. Total timed code time is 43 minutes. Therapeutic exercise (35018): timed minutes 22, units 1 . NuStep 5' (I lv 1.5P) Standing hip flexor stretch 10 x 10 Standing toe taps on 6 step 2 x 10 Seated LAQ + Hip Add with Pelvic Floor Contraction 10 x 5 hold Seated SLR 2 x 10 (more content not included)... Normal [facility] PT Progress Noteon 3 PT Progress Note Therapy Diagnosis Assessed Decreased range of right hip movement (719.55) (M25.651) Gait abnormality (781.2) (R26.9) Hip pain, right (719.45) (M25.551) History of right hip replacement (V43.64) (Z96.641) Impaired transfers (781.99) (Z74.09) Plan Goals: Goals set and discussed today. By discharge MISAEL MEDINA will achieve the following goals: Pt will demo and report compliance with HEP in order to augment POC goals and progression toward independence with symptom management for better outcomes once D/C from POC. , by week 2, goal met Activity Limitation: Pt will demo improved ease with ascending/descending 2 steps with reciprocal pattern and improved eccentric control to decrease fall risk. , goal partially met Gait/Locomotion: Pt will demo improved gait mechanics with least restrictive device, even step length, stance time, proper heel strike and push off, and min-no evidence of instability or antalgic gait for return to PLOF. , goal partially met Strength: Pt will demo improved MMT by >/= 1 point on 0-5 point scale in BLE's for improved strength and stability, and improved ease with transfers, lifting/carrying, and proper mechanics with ADL?s AND IADL?s. , goal partially met Transfers: Pt will demo improved ease with sit<>stand with min UE A and improved eccentric control for decreased fall risk and improved ease with transfers. , goal partially met LEFS, Pt will report subjective improvement with score on LEFS improved by >/= 5 points for return to PLOF, improved QOL, and improved ease with ADL?s AND IADL?s. , goal met Planned interventions include: aquatic therapy, cryotherapy, dry needling, education/instruction, electrical stimulation, gait training, home program, hot pack, kinesiotaping, manual therapy, neuromuscular re-education, self care/home management, therapeutic activities, therapeutic exercises and IASTM/CUPPING. Frequency and duration: 2 time(s) a week, for 4 weeks, for 15 total POC visits. Potential to achieve rehab goals is good Progress with standing strength/balance activities; continued STM PRN; Progression of gait training when able with dynamic gait activities to improve stability with all terrain. Progress with POC, as tolerated. Assessment Pt reassessed this date by supervising PT with improvements noted in gait mechanics with pt able to ambulate from parking lot to rehab gym with rollator this date (vs wheelchair [facility]), improved MMT RLE as well as improving ROM in RLE. Pt still fatigues with prolonged standing/weight bearing through RLE and has instability with transfers/gait at times, but is making great goal-oriented progress at this time. Is still functionally limited with all transfers, ambulation specifically on uneven surfaces/long distances, ascending/descending stairs, and functional endurance and is appropriate for continued skilled PT. Does also still present with lingering myofascial restrictions throughout Right LE musculature, which continues to respond well to STM performed in clinic. Response to treatment: decreased pain. Patient was able to complete today's treatment with some difficulty. Adult Risk Screening There are no spiritual/cultural practices/values/needs that are important to know Initial Fall Risk Screening: MISAEL has not fallen in the last 6 months. MISAEL has a fear of falling. She needs assistance with . Needs assistance walking in her home. She needs assistance in an unfamiliar setting. The patient is using an assistive device. Fall Risk Screening: Patient is identified as a fall risk. Care Plan: Moderate Risk: Low risk interventions plus: do not leave patient on exam table unattended, supervised activity, educate patient/family on falls prevention, review safety initiatives with patient/family, family at bedside as allowed, yellow falls risk band, focus rounding attention, locate patient in area of high visibility, wheelchair, bed, or personal alarm, bedside commode, elevated toilet seat and pharmacy consult for medication concerns. The pain makes it hard for the patient to do these things: walking, exercise, sleep, relationships with family or friends and self-care (bathing, dressing, eating). Living Will. Living Will: Living will on file. Healthcare POA: Health care proxy on file. Declaration of Mental Health Treatment: Declaration of mental health treatment on file. Domestic Violence Screen: Does not feel threatened or abused physically, emotionally or sexually. Do you feel UNSAFE? The patient feels safe in the home. Depression/Suicide Screening: During the past 2 weeks, the patient has not felt down, depressed or hopeless. During the past 2 weeks, the patient has not felt little interest or pleasure in doing things. Insurance Insurance reviewed Visit number: 7 Authorization not required after evaluation POC: 05/29 [employer] Supervising PT: Alejandra Cutler PT, DPT, Cert DN PT Dx: M25.551; M25.651; R26.9; Z74.09; Z96.641 Medi (more content not included)... Normal [facility] Therapy Re-eval Noteon 12-14 Therapy Re-eval Note Therapy Diagnosis Assessed 1. Decreased range of right hip movement (719.55) (M25.651) 2. Gait abnormality (781.2) (R26.9) 3. Hip pain, right (719.45) (M25.551) 4. History of right hip replacement (V43.64) (Z96.641) 5. Impaired transfers (781.99) (Z74.09) Plan Goals: Goals set and discussed today. By discharge MISAEL MEDINA will achieve the following goals: Pt will demo and report compliance with HEP in order to augment POC goals and progression toward independence with symptom management for better outcomes once D/C from POC. , by week 2, goal met Activity Limitation: Pt will demo improved ease with ascending/descending 2 steps with reciprocal pattern and improved eccentric control to decrease fall risk. , goal partially met Gait/Locomotion: Pt will demo improved gait mechanics with least restrictive device, even step length, stance time, proper heel strike and push off, and min-no evidence of instability or antalgic gait for return to PLOF. , goal partially met Strength: Pt will demo improved MMT by >/= 1 point on 0-5 point scale in BLE's for improved strength and stability, and improved ease with transfers, lifting/carrying, and proper mechanics with ADL?s AND IADL?s. , goal partially met Transfers: Pt will demo improved ease with sit<>stand with min UE A and improved eccentric control for decreased fall risk and improved ease with transfers. , goal partially met LEFS, Pt will report subjective improvement with score on LEFS improved by >/= 5 points for return to PLOF, improved QOL, and improved ease with ADL?s AND IADL?s. , goal met Planned interventions include: aquatic therapy, cryotherapy, dry needling, education/instruction, electrical stimulation, gait training, home program, hot pack, kinesiotaping, manual therapy, neuromuscular re-education, self care/home management, therapeutic activities, therapeutic exercises and IASTM/CUPPING. Frequency and duration: 2 time(s) a week, for 4 weeks, for 15 total POC visits. Potential to achieve rehab goals is good Progress with standing strength/balance activities; continued STM PRN; Progression of gait training when able with dynamic gait activities to improve stability with all terrain. Progress with POC, as tolerated. Assessment Pt reassessed this date by supervising PT with improvements noted in gait mechanics with pt able to ambulate from parking lot to rehab gym with rollator this date (vs wheelchair at [facility]), improved MMT RLE as well as improving ROM in RLE. Pt still fatigues with prolonged standing/weight bearing through RLE and has instability with transfers/gait at times, but is making great goal-oriented progress at this time. Is still functionally limited with all transfers, ambulation specifically on uneven surfaces/long distances, ascending/descending stairs, and functional endurance and is appropriate for continued skilled PT. Does also still present with lingering myofascial restrictions throughout Right LE musculature, which continues to respond well to STM performed in clinic. Response to treatment: decreased pain. Patient was able to complete today's treatment with some difficulty. Adult Risk Screening There are no spiritual/cultural practices/values/needs that are important to know Initial Fall Risk Screening: MISAEL has not fallen in the last 6 months. MISAEL has a fear of falling. She needs assistance with . Needs assistance walking in her home. She needs assistance in an unfamiliar setting. The patient is using an assistive device. Fall Risk Screening: Patient is identified as a fall risk. Care Plan: Moderate Risk: Low risk interventions plus: do not leave patient on exam table unattended, supervised activity, educate patient/family on falls prevention, review safety initiatives with patient/family, family at bedside as allowed, yellow falls risk band, focus rounding attention, locate patient in area of high visibility, wheelchair, bed, or personal alarm, bedside commode, elevated toilet seat and pharmacy consult for medication concerns. The pain makes it hard for the patient to do these things: walking, exercise, sleep, relationships with family or friends and self-care (bathing, dressing, eating). Living Will. Living Will: Living will on file. Healthcare POA: Health care proxy on file. Declaration of Mental Health Treatment: Declaration of mental health treatment on file. Domestic Violence Screen: Does not feel threatened or abused physically, emotionally or sexually. Do you feel UNSAFE? The patient feels safe in the home. Depression/Suicide Screening: During the past 2 weeks, the patient has not felt down, depressed or hopeless. During the past 2 weeks, the patient has not felt little interest or pleasure in doing things. Insurance Insurance reviewed Visit number: 7 Authorization not required after evaluation POC: 05/29 [employer] Supervising PT: Alejandra Cutler PT, DPT, Cert DN PT Dx: M25.551; M25.651; R26.9; Z74.09; (more content not included)... Normal [facility] PT Progress Noteon 3 PT Progress Note Therapy Diagnosis Assessed Hip pain, right (719.45) (M25.551) Plan Goals: Goals set and discussed today. By discharge MISAELLENNY MEDINA will achieve the following goals: Pt will demo and report compliance with HEP in order to augment POC goals and progression toward independence with symptom management for better outcomes once D/C from POC. , by week 2 Activity Limitation: Pt will demo improved ease with ascending/descending 2 steps with reciprocal pattern and improved eccentric control to decrease fall risk. Gait/Locomotion: Pt will demo improved gait mechanics with least restrictive device, even step length, stance time, proper heel strike and push off, and min-no evidence of instability or antalgic gait for return to PLOF. Strength: Pt will demo improved MMT by >/= 1 point on 0-5 point scale in BLE's for improved strength and stability, and improved ease with transfers, lifting/carrying, and proper mechanics with ADL?s AND IADL?s. Transfers: Pt will demo improved ease with sit<>stand with min UE A and improved eccentric control for decreased fall risk and improved ease with transfers. LEFS, Pt will report subjective improvement with score on LEFS improved by >/= 5 points for return to PLOF, improved QOL, and improved ease with ADL?s AND IADL?s. Planned interventions include: aquatic therapy, cryotherapy, dry needling, education/instruction, electrical stimulation, gait training, home program, hot pack, kinesiotaping, manual therapy, neuromuscular re-education, self care/home management, therapeutic activities, therapeutic exercises and IASTM/CUPPING. Frequency and duration: 2 time(s) a week, for 4 weeks, for 8 visits. Potential to achieve rehab goals is good Progress ther ex and strength for improved ambulation. Progress with POC, as tolerated. Assessment Brought marilia with her today into the clinic. Was able to ambulate to the exit doors of clinic when leaving. Arrived in W/C to get back to clinic. Added standing R hip flexor stretch d/t tightness in the R hip flexor and poor posture in standing. Tightness in hip flexor during STW, that was relieved by STW. Adult Risk Screening There are no spiritual/cultural practices/values/needs that are important to know Initial Fall Risk Screening: MISAEL has not fallen in the last 6 months. MISAEL has a fear of falling. She needs assistance with . Needs assistance walking in her home. She needs assistance in an unfamiliar setting. The patient is using an assistive device. Fall Risk Screening: Patient is identified as a fall risk. Care Plan: Moderate Risk: Low risk interventions plus: do not leave patient on exam table unattended, supervised activity, educate patient/family on falls prevention, review safety initiatives with patient/family, family at bedside as allowed, yellow falls risk band, focus rounding attention, locate patient in area of high visibility, wheelchair, bed, or personal alarm, bedside commode, elevated toilet seat and pharmacy consult for medication concerns. The pain makes it hard for the patient to do these things: walking, exercise, sleep, relationships with family or friends and self-care (bathing, dressing, eating). Living Will. Living Will: Living will on file. Healthcare POA: Health care proxy on file. Declaration of Mental Health Treatment: Declaration of mental health treatment on file. Domestic Violence Screen: Does not feel threatened or abused physically, emotionally or sexually. Do you feel UNSAFE? The patient feels safe in the home. Depression/Suicide Screening: During the past 2 weeks, the patient has not felt down, depressed or hopeless. During the past 2 weeks, the patient has not felt little interest or pleasure in doing things. Insurance Insurance reviewed Visit number: 5 Authorization not required after evaluation POC: 01/20 [employer] Supervising PT: Alejandra Cutler PT, DPT, Cert DN PT Dx: M25.551; M25.651; R26.9; Z74.09; Z96.641 Medicare Certification Period: Beginnin2022 Endin2022 Subjective Patient reports:. Patient reports that she has been using the rollator when going to basketball games. States that she went to the grocery store and used the cart to walk. Current pain level 0/10 but mild soreness in incision. States that she has F/U with MD on 01/01/23. Patient identified by name and date of . Home program performing as directed: Yes. Precautions: post-op movement restrictions: Posterior Hip Precautions. Fall Risk: moderate Htn . Treatment Time in clinic started at 1:15 Time in clinic ended at 1:59 Total time in clinic is 44 minutes. Total timed code time is 42 minutes. Therapeutic exercise (61214): timed minutes 35, units 2 . NuStep 6' Standing heel raises 2 x 10 Standing toe taps on 6 step 2 x 10 Standing hip abd 2 x 10 Stanidng HS curl 2 x 10 Standing hip flexor stretch 10 x 10 (N) Seated Heel Slide x 10 Seated Gastroc Stre (more content not included)... Normal [facility] PT Progress Noteon 3 PT Progress Note Therapy Diagnosis Assessed Hip pain, right (719.45) (M25.551) Decreased range of right hip movement (719.55) (M25.651) Gait abnormality (781.2) (R26.9) Impaired transfers (781.99) (Z74.09) History of right hip replacement (V43.64) (Z96.641) Plan Goals: Goals set and discussed today. By discharge MISAEL MEDINA will achieve the following goals: Pt will demo and report compliance with HEP in order to augment POC goals and progression toward independence with symptom management for better outcomes once D/C from POC. , by week 2 Activity Limitation: Pt will demo improved ease with ascending/descending 2 steps with reciprocal pattern and improved eccentric control to decrease fall risk. Gait/Locomotion: Pt will demo improved gait mechanics with least restrictive device, even step length, stance time, proper heel strike and push off, and min-no evidence of instability or antalgic gait for return to PLOF. Strength: Pt will demo improved MMT by >/= 1 point on 0-5 point scale in BLE's for improved strength and stability, and improved ease with transfers, lifting/carrying, and proper mechanics with ADL?s AND IADL?s. Transfers: Pt will demo improved ease with sit<>stand with min UE A and improved eccentric control for decreased fall risk and improved ease with transfers. LEFS, Pt will report subjective improvement with score on LEFS improved by >/= 5 points for return to PLOF, improved QOL, and improved ease with ADL?s AND IADL?s. Planned interventions include: aquatic therapy, cryotherapy, dry needling, education/instruction, electrical stimulation, gait training, home program, hot pack, kinesiotaping, manual therapy, neuromuscular re-education, self care/home management, therapeutic activities, therapeutic exercises and IASTM/CUPPING. Frequency and duration: 2 time(s) a week, for 4 weeks, for 8 visits. Potential to achieve rehab goals is good Progress ther ex and strength for improved ability to ambulate long distance with rollator. Progress with POC, as tolerated. Assessment Came back to clinic in W/C this date but did ambulate in clinic with cane. Observed mod antalgic gait observed this date with use of clinic. Discussed bringing rollator next date to try to use to ambulate out of clinic. Decreased tightness along hip flexor this date during STW. Progressed HEP with new PRE's. Adult Risk Screening There are no spiritual/cultural practices/values/needs that are important to know Initial Fall Risk Screening: MISAEL has not fallen in the last 6 months. MISAEL has a fear of falling. She needs assistance with . Needs assistance walking in her home. She needs assistance in an unfamiliar setting. The patient is using an assistive device. Fall Risk Screening: Patient is identified as a fall risk. Care Plan: Moderate Risk: Low risk interventions plus: do not leave patient on exam table unattended, supervised activity, educate patient/family on falls prevention, review safety initiatives with patient/family, family at bedside as allowed, yellow falls risk band, focus rounding attention, locate patient in area of high visibility, wheelchair, bed, or personal alarm, bedside commode, elevated toilet seat and pharmacy consult for medication concerns. The pain makes it hard for the patient to do these things: walking, exercise, sleep, relationships with family or friends and self-care (bathing, dressing, eating). Living Will. Living Will: Living will on file. Healthcare POA: Health care proxy on file. Declaration of Mental Health Treatment: Declaration of mental health treatment on file. Domestic Violence Screen: Does not feel threatened or abused physically, emotionally or sexually. Do you feel UNSAFE? The patient feels safe in the home. Depression/Suicide Screening: During the past 2 weeks, the patient has not felt down, depressed or hopeless. During the past 2 weeks, the patient has not felt little interest or pleasure in doing things. Insurance Insurance reviewed Visit number: 5 Authorization not required after evaluation POC: 01/20 [employer] Supervising PT: Alejandra Cutler PT, DPT, Cert DN PT Dx: M25.551; M25.651; R26.9; Z74.09; Z96.641 Medicare Certification Period: Beginnin2022 Endin2022 Subjective Patient reports:. Patient reports that her glute muscle feels more sore today. Current pain 2/10 in the glute region. States that she has not had the soreness in that area. States that she used crutches to get around the basketball games instead of the walker, which she feels may have made her sore. Notes that area on her incision is not as irritated as it was. States that she has F/U with MD on 01/01/23. Patient identified by name and date of . Home program performing as directed: Yes. Precautions: post-op movement restrictions: Posterior Hip Precautions. Fall Risk: moderate Htn . Treatment Time in clinic started at 1:15 Time in clinic end (more content not included)... Normal [facility] PT Progress Noteon 3 PT Progress Note Therapy Diagnosis Assessed Hip pain, right (719.45) (M25.551) Decreased range of right hip movement (719.55) (M25.651) Gait abnormality (781.2) (R26.9) Impaired transfers (781.99) (Z74.09) History of right hip replacement (V43.64) (Z96.641) Plan Goals: Goals set and discussed today. By discharge MISAEL CAROL will achieve the following goals: Pt will demo and report compliance with HEP in order to augment POC goals and progression toward independence with symptom management for better outcomes once D/C from POC. , by week 2 Activity Limitation: Pt will demo improved ease with ascending/descending 2 steps with reciprocal pattern and improved eccentric control to decrease fall risk. Gait/Locomotion: Pt will demo improved gait mechanics with least restrictive device, even step length, stance time, proper heel strike and push off, and min-no evidence of instability or antalgic gait for return to PLOF. Strength: Pt will demo improved MMT by >/= 1 point on 0-5 point scale in BLE's for improved strength and stability, and improved ease with transfers, lifting/carrying, and proper mechanics with ADL?s AND IADL?s. Transfers: Pt will demo improved ease with sit<>stand with min UE A and improved eccentric control for decreased fall risk and improved ease with transfers. LEFS, Pt will report subjective improvement with score on LEFS improved by >/= 5 points for return to PLOF, improved QOL, and improved ease with ADL?s AND IADL?s. Planned interventions include: aquatic therapy, cryotherapy, dry needling, education/instruction, electrical stimulation, gait training, home program, hot pack, kinesiotaping, manual therapy, neuromuscular re-education, self care/home management, therapeutic activities, therapeutic exercises and IASTM/CUPPING. Frequency and duration: 2 time(s) a week, for 4 weeks, for 8 visits. Potential to achieve rehab goals is good Progress ther ex for continued improved functional mobility and strength with home and community related tasks. Progress with POC, as tolerated. Assessment Patient denied walking into the clinic from waiting are d/t fatigue this date. Patient had difficulty with standing PRE's this date d/t fatigue. Had increased hip flexion in stance phase with trunk flexion at the step. Tightness with hip flexors with STW. Adult Risk Screening There are no spiritual/cultural practices/values/needs that are important to know Initial Fall Risk Screening: MISAEL has not fallen in the last 6 months. MISAEL has a fear of falling. She needs assistance with . Needs assistance walking in her home. She needs assistance in an unfamiliar setting. The patient is using an assistive device. Fall Risk Screening: Patient is identified as a fall risk. Care Plan: Moderate Risk: Low risk interventions plus: do not leave patient on exam table unattended, supervised activity, educate patient/family on falls prevention, review safety initiatives with patient/family, family at bedside as allowed, yellow falls risk band, focus rounding attention, locate patient in area of high visibility, wheelchair, bed, or personal alarm, bedside commode, elevated toilet seat and pharmacy consult for medication concerns. The pain makes it hard for the patient to do these things: walking, exercise, sleep, relationships with family or friends and self-care (bathing, dressing, eating). Living Will. Living Will: Living will on file. Healthcare POA: Health care proxy on file. Declaration of Mental Health Treatment: Declaration of mental health treatment on file. Domestic Violence Screen: Does not feel threatened or abused physically, emotionally or sexually. Do you feel UNSAFE? The patient feels safe in the home. Depression/Suicide Screening: During the past 2 weeks, the patient has not felt down, depressed or hopeless. During the past 2 weeks, the patient has not felt little interest or pleasure in doing things. Insurance Insurance reviewed Visit number: 4 Authorization not required after evaluation POC: 01/20 [employer] Supervising PT: Alejandra Cutler PT, DPT, Cert DN PT Dx: M25.551; M25.651; R26.9; Z74.09; Z96.641 Medicare Certification Period: Beginnin2022 Endin2022 Subjective Patient reports:. Patient reported 0/10 but is just very fatigued today. Patient reports that she had F/U with MD today and states that everything is going good. States that she had to get into her husbands truck because her garage door broke, which was difficult. States that she uses walker around the house and when going to appointments. Patient identified by name and date of . Home program performing as directed: Yes. Precautions: post-op movement restrictions: Posterior Hip Precautions. Fall Risk: moderate Htn . Treatment Time in clinic started at 4:15 Time in clinic ended at 5:00 Total time in clinic is 45 minutes. Total timed code time is 44 minutes. Therapeutic ex (more content not included)... Normal [facility] PT Progress Noteon 3 PT Progress Note Therapy Diagnosis Assessed Hip pain, right (719.45) (M25.551) Decreased range of right hip movement (719.55) (M25.651) Gait abnormality (781.2) (R26.9) Impaired transfers (781.99) (Z74.09) History of right hip replacement (V43.64) (Z96.641) Plan Goals: Goals set and discussed today. By discharge MISAEL MEDINA will achieve the following goals: Pt will demo and report compliance with HEP in order to augment POC goals and progression toward independence with symptom management for better outcomes once D/C from POC. , by week 2 Activity Limitation: Pt will demo improved ease with ascending/descending 2 steps with reciprocal pattern and improved eccentric control to decrease fall risk. Gait/Locomotion: Pt will demo improved gait mechanics with least restrictive device, even step length, stance time, proper heel strike and push off, and min-no evidence of instability or antalgic gait for return to PLOF. Strength: Pt will demo improved MMT by >/= 1 point on 0-5 point scale in BLE's for improved strength and stability, and improved ease with transfers, lifting/carrying, and proper mechanics with ADL?s AND IADL?s. Transfers: Pt will demo improved ease with sit<>stand with min UE A and improved eccentric control for decreased fall risk and improved ease with transfers. LEFS, Pt will report subjective improvement with score on LEFS improved by >/= 5 points for return to PLOF, improved QOL, and improved ease with ADL?s AND IADL?s. Planned interventions include: aquatic therapy, cryotherapy, dry needling, education/instruction, electrical stimulation, gait training, home program, hot pack, kinesiotaping, manual therapy, neuromuscular re-education, self care/home management, therapeutic activities, therapeutic exercises and IASTM/CUPPING. Frequency and duration: 2 time(s) a week, for 4 weeks, for 8 visits. Potential to achieve rehab goals is good Plan to continue with strength and STW progression for ease of ambulation with house hold duties. Progress with POC, as tolerated. Assessment Patient identified by name and date of . Patient was able to progress with step ups this date. She demonstrate good tolerance to treatment with no increased Sx. She ambulated around clinic with use of cane with cues to increase with upright posture. She presented with palpable tension in hip flexors with STW. Adult Risk Screening There are no spiritual/cultural practices/values/needs that are important to know Initial Fall Risk Screening: MISAEL has not fallen in the last 6 months. MISAEL has a fear of falling. She needs assistance with . Needs assistance walking in her home. She needs assistance in an unfamiliar setting. The patient is using an assistive device. Fall Risk Screening: Patient is identified as a fall risk. Care Plan: Moderate Risk: Low risk interventions plus: do not leave patient on exam table unattended, supervised activity, educate patient/family on falls prevention, review safety initiatives with patient/family, family at bedside as allowed, yellow falls risk band, focus rounding attention, locate patient in area of high visibility, wheelchair, bed, or personal alarm, bedside commode, elevated toilet seat and pharmacy consult for medication concerns. Pain Scale: On a scale of 0 to 10, the patient rates the pain at 0. The pain makes it hard for the patient to do these things: walking, exercise, sleep, relationships with family or friends and self-care (bathing, dressing, eating). Living Will. Living Will: Living will on file. Healthcare POA: Health care proxy on file. Declaration of Mental Health Treatment: Declaration of mental health treatment on file. Domestic Violence Screen: Does not feel threatened or abused physically, emotionally or sexually. Do you feel UNSAFE? The patient feels safe in the home. Depression/Suicide Screening: During the past 2 weeks, the patient has not felt down, depressed or hopeless. During the past 2 weeks, the patient has not felt little interest or pleasure in doing things. Insurance Insurance reviewed Visit number: 3 Authorization not required after evaluation POC: 01/20 [employer] Supervising PT: Alejandra Cutler PT, DPT, [place] DN PT Dx: M25.551; M25.651; R26.9; Z74.09; Z96.641 Medicare Certification Period: Beginnin2022 Endin2022 Subjective Patient reports:. Patient reported 0/10 pain after treatment. Home program performing as directed: Yes. Precautions: post-op movement restrictions: Posterior Hip Precautions. Fall Risk: moderate Htn . Treatment Time in clinic started at 01:14 Time in clinic ended at 02:00 Total time in clinic is 46 minutes. Total timed code time is 44 minutes. Therapeutic exercise (03144): timed minutes 30, units 1 . NuStep 6' (N) Standing heel raises 2 x 10 Standing toe taps on 6 step 2 x 10 Standing hip abd 2 x 10 (N) Seated Heel Slide x10 Seated Gastroc Stretch with Strap x10 10?hold (more content not included)... [facility] PT Progress Noteon 3 PT Progress Note Therapy Diagnosis Assessed Hip pain, right (719.45) (M25.551) Decreased range of right hip movement (719.55) (M25.651) Gait abnormality (781.2) (R26.9) Impaired transfers (781.99) (Z74.09) History of right hip replacement (V43.64) (Z96.641) Plan Goals: Goals set and discussed today. By discharge MISAEL MEDINA will achieve the following goals: Pt will demo and report compliance with HEP in order to augment POC goals and progression toward independence with symptom management for better outcomes once D/C from POC. , by week 2 Activity Limitation: Pt will demo improved ease with ascending/descending 2 steps with reciprocal pattern and improved eccentric control to decrease fall risk. Gait/Locomotion: Pt will demo improved gait mechanics with least restrictive device, even step length, stance time, proper heel strike and push off, and min-no evidence of instability or antalgic gait for return to PLOF. Strength: Pt will demo improved MMT by >/= 1 point on 0-5 point scale in BLE's for improved strength and stability, and improved ease with transfers, lifting/carrying, and proper mechanics with ADL?s AND IADL?s. Transfers: Pt will demo improved ease with sit<>stand with min UE A and improved eccentric control for decreased fall risk and improved ease with transfers. LEFS, Pt will report subjective improvement with score on LEFS improved by >/= 5 points for return to PLOF, improved QOL, and improved ease with ADL?s AND IADL?s. Planned interventions include: aquatic therapy, cryotherapy, dry needling, education/instruction, electrical stimulation, gait training, home program, hot pack, kinesiotaping, manual therapy, neuromuscular re-education, self care/home management, therapeutic activities, therapeutic exercises and IASTM/CUPPING. Frequency and duration: 2 time(s) a week, for 4 weeks, for 8 visits. Potential to achieve rehab goals is good Plan to continue with strength and STW progression for ease of ambulation. Progress with POC, as tolerated. Assessment Arrived in W/C but used clinic owned FWW to ambulate in clinic but uses her own at home. Discussed patient trying to achieve more upright posture during gait with FWW d/t observable slight trunk flexion. Reviewed HEP this date and progressed to 2 standing exercises. Completed STW to R hip flexors d/t observable tightness. Adult Risk Screening There are no spiritual/cultural practices/values/needs that are important to know Initial Fall Risk Screening: MISAEL has not fallen in the last 6 months. MISAEL has a fear of falling. She needs assistance with . Needs assistance walking in her home. She needs assistance in an unfamiliar setting. The patient is using an assistive device. Fall Risk Screening: Patient is identified as a fall risk. Care Plan: Moderate Risk: Low risk interventions plus: do not leave patient on exam table unattended, supervised activity, educate patient/family on falls prevention, review safety initiatives with patient/family, family at bedside as allowed, yellow falls risk band, focus rounding attention, locate patient in area of high visibility, wheelchair, bed, or personal alarm, bedside commode, elevated toilet seat and pharmacy consult for medication concerns. Please identify location of pain: Right leg. Pain Quality: aching, dull and tightness. The pain makes it hard for the patient to do these things: walking, exercise, sleep, relationships with family or friends and self-care (bathing, dressing, eating). Living Will. Living Will: Living will on file. Healthcare POA: Health care proxy on file. Declaration of Mental Health Treatment: Declaration of mental health treatment on file. Domestic Violence Screen: Does not feel threatened or abused physically, emotionally or sexually. Do you feel UNSAFE? The patient feels safe in the home. Depression/Suicide Screening: During the past 2 weeks, the patient has not felt down, depressed or hopeless. During the past 2 weeks, the patient has not felt little interest or pleasure in doing things. Insurance Insurance reviewed Visit number: 2 Authorization not required after evaluation POC: 11/22 [employer] Supervising PT: Alejandra Cutler PT, DPT, Cert DN PT Dx: M25.551; M25.651; R26.9; Z74.09; Z96.641 Medicare Certification Period: Beginnin2022 Endin2022 Subjective Patient reports:. Current pain level 11/24. States that she feels Pressure in the hip possibly d/t the weather change outside. States that she was moving good yesterday but woke up for stiff. Has 4 steps to get into her home and uses 2 hand rails. Patient identified by name and date of . Precautions: post-op movement restrictions: Posterior Hip Precautions. Fall Risk: moderate Htn . Treatment Time in clinic started at 11:30 Time in clinic ended at 12:10 Total time in clinic is 40 minutes. Total timed code time is 39 minutes. Therapeutic exercise (18921): (more content not included)... Normal [facility] PT Initial Evaluationon PT Initial Evaluation Therapy Diagnosis Assessed Hip pain, right (719.45) (M25.551) Decreased range of right hip movement (719.55) (M25.651) Gait abnormality (781.2) (R26.9) Impaired transfers (781.99) (Z74.09) History of right hip replacement (V43.64) (Z96.641) Plan of Care Goals: Goals set and discussed today. By discharge MISAEL MEDINA will achieve the following goals: Pt will demo and report compliance with HEP in order to augment POC goals and progression toward independence with symptom management for better outcomes once D/C from POC. , by week 2 Activity Limitation: Pt will demo improved ease with ascending/descending 2 steps with reciprocal pattern and improved eccentric control to decrease fall risk. Gait/Locomotion: Pt will demo improved gait mechanics with least restrictive device, even step length, stance time, proper heel strike and push off, and min-no evidence of instability or antalgic gait for return to PLOF. Strength: Pt will demo improved MMT by >/= 1 point on 0-5 point scale in BLE's for improved strength and stability, and improved ease with transfers, lifting/carrying, and proper mechanics with ADL?s AND IADL?s. Transfers: Pt will demo improved ease with sit<>stand with min UE A and improved eccentric control for decreased fall risk and improved ease with transfers. LEFS, Pt will report subjective improvement with score on LEFS improved by >/= 5 points for return to PLOF, improved QOL, and improved ease with ADL?s AND IADL?s. Planned interventions include: aquatic therapy, cryotherapy, dry needling, education/instruction, electrical stimulation, gait training, home program, hot pack, kinesiotaping, manual therapy, neuromuscular re-education, self care/home management, therapeutic activities, therapeutic exercises and IASTM/CUPPING. Frequency and duration: 2 time(s) a week, for 4 weeks, for 8 visits. Potential to achieve rehab goals is good Plan of care was developed with input and agreement by the patient. Assessment Ms. MEDINA presents with signs and symptoms consistent with Post-Op Right Hip Replacement with PT diagnosis of Right hip pain, Decreased ROM RIght hip, Antalgic Gait, and impaired transfers and demonstrates impairments/limitations in all functional transfers, gait deficits with FWW with step-to pattern, decreased stance time/weight shift to RLE, fatigues quickly, decreased jeimy, and two standing rest breaks to ambulate 122 ft with CGA from PT this date. Edu on wound management for incision as well as activity modification with review of hip precautions and good recall from pt. Reported good understanding of HEP with HO given. They would benefit from skilled Physical Therapy with combination of manual therapy techniques to decrease myofascial and joint restrictions, as well as progression of exercises for ROM, flexibility, strength, core stabilization, and glute retraining, and body mechanics education throughout POC to progress towards independence with ADL?s/IADL?s and return to PLOF. Clinical Presentation: Stable and/or uncomplicated characteristics. Level of Complexity: low Problem List: activity limitations, ADLs/IADLs/self care skills, balance, decreased functional level, fall risk, flexibility, gait/locomotion, pain, participation restrictions, posture, range of motion/joint mobility, strength and transfers. Reason For Visit Initial Evaluation, Post-Op 11/19/2022 . Post-Op Right Hip Replacement. Referred by: Carey Garcia Adult Risk Screening There are no spiritual/cultural practices/values/needs that are important to know Initial Fall Risk Screening: MISAEL has not fallen in the last 6 months. MISAEL has a fear of falling. She needs assistance with . Needs assistance walking in her home. She needs assistance in an unfamiliar setting. The patient is using an assistive device. Fall Risk Screening: Patient is identified as a fall risk. Care Plan: Moderate Risk: Low risk interventions plus: do not leave patient on exam table unattended, supervised activity, educate patient/family on falls prevention, review safety initiatives with patient/family, family at bedside as allowed, yellow falls risk band, focus rounding attention, locate patient in area of high visibility, wheelchair, bed, or personal alarm, bedside commode, elevated toilet seat and pharmacy consult for medication concerns. Pain Scale: On a scale of 0 to 10, the patient rates the pain at 0. Please identify location of pain: Right leg. Pain Quality: aching, dull and tightness. The pain makes it hard for the patient to do these things: walking, exercise, sleep, relationships with family or friends and self-care (bathing, dressing, eating). Living Will. Living Will: Living will on file. Healthcare POA: Health care proxy on file. Declaration of Mental Health Treatment: Declaration of mental health treatment on file. Domestic Violence Screen: Does not feel threatened or abused physically, emotionally or sexually. Do you feel (more content not included)... Normal [facility] Basophil percentageon 2022 Chloride [Moles/Vol] 106 mmol/L 98-107 [facility] Work Phone: Glucose [Mass/Vol] 251 mg/dL 74-106 [facility] Work Phone: Comment on above: Glucose result great er than or equal to 200 mg/dLsuggests DIABETES MELLITUS per A.D.A. criteria. Potassium [Moles/Vol] 4.5 mmol/L 3.5-5.1 [facility] [place] Work Phone: Sodium [Moles/Vol] 137 mmol/L 136-145 [facility] Work Phone: WBC (Bld) [#/Vol] 13.4 10*3/uL 4.4-11.0 [facility] Work Phone: Blood erythrocytes count (nu mber/volume)on 11-20-2022 RBC (Bld) [#/Vol] 3.27 10*6/uL 4.2-5.4 [facility] Work Phone: Blood hemoglobin measurement (mass/volume)on 11-20-2022 Hemoglobin (Bld) [Mass/Vol] 9.8 g/dL 12.0-15.[address] [facility] Work Phone: Blood platelet mean volumeon 11-20-2022 Platelet mean volume (Bld) [Entitic vol] 8.6 fL 6.2-12.[address] [facility] Work Phone: Determination of erythrocyte mean corpuscular volume (MCV)on 11-20-2022 MCV (RBC) [Entitic vol] 93.0 fL 81-99 [facility] Work Phone: Glucose Glucometer (BldC) [M ass/Vol]on 11-20-2022 Glucose [Mass/Vol] 247 mg/dL 74-106 [facility] Work Phone: Comment on above: MANAGEMENT OF PATIEN T CARE PER NURSING PROTOCOL Hematocrit Auto (Bld) [Volum e fraction]on 11-20-2022 Hematocrit (Bld) [Volume fraction] 30.4 % 37-[address] [facility] Work Phone: Laboratory - Chemistry and C hemistry - challengeon 11-20-2022 CO2 [Moles/Vol] 25.0 mmol/L 21.0-32.[address] [facility] Work Phone: Urea nitrogen/Creatinine [Mass ratio] 16.7 mg/mg 10-[address] [facility] Work Phone: Laboratory - Hematology and Cell countson 11-20-2022 Erythrocyte distribution width (RBC) [Entitic vol] 45.5 fL 35.1-43.[address] [facility] Work Phone: Erythrocyte distribution width (RBC) [Ratio] 13.3 % 11.6-14.[address] [facility] Work Phone: MCH (RBC) [Entitic mass] 30.0 pg 27.0-32.[address] [facility] Work Phone: MCHC Auto (RBC) [Mass/Vol]on 11-20-2022 MCHC (RBC) [Mass/Vol] 32.2 g/dL 32-36 [facility] [place] Work Phone: No Panel Informationon 11-20 Estimated Creatinine Clearance Calc 33.66 ml/min [facility] Work Phone: Estimated GFR (MDRD) Amer 60 mL/min >[address] [facility] Work Phone: Comment on above: GFR Calc Estimated GFR (MDRD) Non-Af Amer 50 mL/min >[address] [facility] Work Phone: Comment on above: Non- GFR Calc Platelets bldon 11-20-2022 Platelets (Bld) [#/Vol] 266 10*3/uL 150-[address] [facility] Work Phone: Serum or plasma calcium ras urement (mass/volume)on 11-20-2022 Calcium [Mass/Vol] 8.7 mg/dL 8.5-10.1 [facility] Work Phone: Serum or plasma creatinine m easurement (mass/volume)on 11-20-2022 Creatinine [Mass/Vol] 1.14 mg/dL 0.55-1.02 [facility] [place] Work Phone: Comment on above: The validity of the calculated GFR & GFRAA in patients over 70 years has not been determined. Clinical correlation is essential. Serum or plasma urea nitroge n measurement (mass/volume)on 11-20-2022 Urea nitrogen [Mass/Vol] 19 mg/dL 7-[address] [facility] Work Phone: Thin prep Papanicolaou smear with manual screeningon 11-20-2022 Thin prep Papanicolaou smear with manual screening 6 5-[address] [facility] Work Phone: Absolute lymphocyte counton 11-10-2022 Lymphocytes Auto (Unsp spec) [#/Vol] 1.37 10*3/uL 0.83-4.[address] [facility] Work Phone: Basophil percentageon 2021 Basophils/100 WBC (Bld) 0.3 % 0-1 [facility] Work Phone: Eosinophils/100 WBC (Bld) 1.1 % 0-5 [facility] [facility] Work Phone: Neutrophils (Bld) [#/Vol] 7.6 10*3/uL 2.0-7.[address] [facility] Work Phone: Neutrophils/100 WBC (Bld) 78.6 % 47-[address] [facility] Work Phone: Blood lymphocytes/100 leukoc yteson 11-10-2022 Lymphocytes/100 WBC (Bld) 14.2 % 19-[address] [facility] Work Phone: Blood monocytes/100 leukocyt eson 11-10-2022 Monocytes/100 WBC (Bld) 5.5 % 0-10 [facility] Work Phone: Laboratory - Chemistry and C hemistry - challengeon 11-10-2022 Magnesium [Mass/Vol] 1.8 mg/dL 1.6-2.6 [facility] Work Phone: Laboratory - Hematology and Cell countson 11-10-2022 Immature granulocytes/100 WBC (Bld) 0.300 % 0.0-0.[address] [facility] Work Phone: Comment on above: IG% - Immature Granu locytes (promyelocytes, myelocytes and metamyelocytes) > 1% indicates that a LEFT SHIFT is Present. Nucleated RBC/100 WBC (Bld) [Ratio] 0 % 0-[address] [facility] Work Phone: No Panel Informationon 11-10 Thyroid Stimulating Hormone (TSH) 1.63 uIU/mL 0.358-3.[address] [facility] Work Phone: Whole blood hemoglobin A1c/t otal hemoglobin ratio (mass fraction)on 11-10-2022 HbA1c (Bld) [Mass fraction] 6.9 % 3.8-5.[address] [facility] Work Phone: Comment on above: Normal < 5.7 % Predi abetic 5.7 - 6.4 % Diabetic >or= 6.5 % Please note range changes. PT Progress Noteon 2 PT Progress Note Therapy Diagnosis Assessed Hip pain, right (719.45) (M25.551) Plan Goals: Goals set and discussed today. 1. Independent HEP to allow for 50% reduction in max ADL C/C sx ( 10) 2-3wks 2. 0/10 night time sx to allow for uninterrupted sleep x1wk ( 05/21) 2-3wks 3. Survey score improvement from 13/80 (LEFS 3-4wks 4. Strength increase to allow for improved ADL STS, gait on flats/stairs(from 5. ROM increase to allow for improved ADL car transfers, dressing lowers (stdg active elevation from 40 to 80 deg) 3-4wks Planned interventions include: cryotherapy, education/instruction, gait training, home program, hot pack, kinesiotaping, manual therapy, neuromuscular re-education, self care/home management, therapeutic exercises and IASTM/cupping. Frequency and duration: 2 time(s) a week, for 4 weeks, for 8 visits. Potential to achieve rehab goals is fair: chronic syndrome Patient to follow up with physician in weeks. Discharge patient:. Assessment Pt unable to perform full exercises due to pain and deferred all ther-ex this date. Pt entered in W/C due to pain and instability. Presented with worsening percentage on LEFS to 8/80, increased pain overall, and decreasing functional level, even with attempt at compliance with skilled PT and HEP within pain limits. Pt is not appropriate for continued skilled PT and will F/U with MD concerning worsening pain and functional limits. GOals not met. Adult Risk Screening There are no spiritual/cultural practices/values/needs that are important to know Initial Fall Risk Screening: MISAEL has not fallen in the last 6 months. MISAEL has a fear of falling. She does not need assistance with sitting, standing or walking. Does not need assistance walking in her home. She does not need assistance in an unfamiliar setting. The patient is using an assistive device. Pain Scale: On a scale of 0 to 10, the patient rates the pain at 5. Please identify location of pain: R hip/glut. Insurance Insurance reviewed Visit number: 9 [facility] Evaluating therapist Kenji Santoyo PT. The physical therapist of record is the therapist who assumes primary responsibility for patient management and as such is held accountable for the coordination, continuation and progression of the POC. This patient?s care and PT of record will be transferred from Kenji Santoyo PT to Alejandra Matson DPT effective as of 07/29/22 M25.551; high fall risk Subjective Patient reports:. Pt notes she is still having a lot of pain in her right groin region as well as radiating down her leg. Pt notes she has an appointment with an orthopedic surgeon next Wednesday. States that her A1C is 8.5 currently down from 9.8. Patient identified by name and date of . Home program performing as directed: Partially. 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 Objective Ortho ROM / Joint Mobility (Range of Motion in degrees) Hip: (Mtz = P! Denotes Pain with Movement) Flexion: R Active 40. Gait / Mobility Gait: uses R cane; reduced R stance and step length. Strength Hip: (Mtz: P! Denotes Pain with Movement) Extension: 4-/5 on right, -->3/5 and 5/5 on left. Flexion: 4-/5 on right, -->3+/5 and 5/5 on left. Abduction: 4-/5 on right, -->4/5 and 5/5 on left. Knee: (Mtz: P! Denotes Pain with Movement) Knee extension was 5/5 on right, 5/5, 5/5 on left. Knee flexion was 5/5 on right, 5/5, 5/5 on left. Outcome Measures Lower Extremity Functional Scale score: 13/80-->8 Treatment Time in clinic started at 0400 Time in clinic ended at 0435 Total time in clinic is 35 minutes. Total timed code time is 32 minutes. Therapeutic exercise (40408): timed minutes 20, units 1 . Pt re-assessed for updated POC, updated/reviewed HEP, and discussed continued symptom management x 20' Not 08/24/22: Nustep 7' Seated Toe raises 2 x 10 Seated Heel raises 2 x 10 Seated hip ADD w/ play ball 2 x 10 2-3? hold Seated LAQ 2 x 10 Hooklying SAQ 2 x 10 hooklying bridge 2 x 10 hooklying clamshell 2 x10 green Hooklying marches 2 x 10 green Hooklying glute squeezes 2 x 10 (N) hooklying SLR 2x 10 B (X) Standing hip abd x10 B (not today) Standing march x10 B (not today) gait/balcne work as angelo-A. Manual Therapy (21831): timed minutes 12, units 1 . STW to R Glutes, Piriformis, IT band, and QL. Modalities:. Estim- IFC to R hip 15' (X). Provided today:. Handout given for progression of HEP this date. Patient verbalized and demo'd understanding of correct form and technique. Exercises given are listed below: 1. Seated hip ADD 2. Seated glute squeeze 3. Seated Heel/toe raises 4. LAQ. 'Scores and Scales' Signatures Electronically signed by : Alejandra Cutler, PT; Aug 24 2022 10:35PM EST (Author) Normal [facility] Therapy Re-eval Noteon 08-24 Therapy Re-eval Note Therapy Diagnosis Assessed 1. Hip pain, right (719.45) (M25.551) Plan Goals: Goals set and discussed today. 1. Independent HEP to allow for 50% reduction in max ADL C/C sx ( 08/24) 2-3wks 2. 0/10 night time sx to allow for uninterrupted sleep x1wk ( 05/21) 2-3wks 3. Survey score improvement from 13/80 (LEFS 3-4wks 4. Strength increase to allow for improved ADL STS, gait on flats/stairs(from 5. ROM increase to allow for improved ADL car transfers, dressing lowers (stdg active elevation from 40 to 80 deg) 3-4wks Planned interventions include: cryotherapy, education/instruction, gait training, home program, hot pack, kinesiotaping, manual therapy, neuromuscular re-education, self care/home management, therapeutic exercises and IASTM/cupping. Frequency and duration: 2 time(s) a week, for 4 weeks, for 8 visits. Potential to achieve rehab goals is fair: chronic syndrome Patient to follow up with physician in weeks. Discharge patient:. Assessment Pt unable to perform full exercises due to pain and deferred all ther-ex this date. Pt entered in W/C due to pain and instability. Presented with worsening percentage on LEFS to 8/80, increased pain overall, and decreasing functional level, even with attempt at compliance with skilled PT and HEP within pain limits. Pt is not appropriate for continued skilled PT and will F/U with MD concerning worsening pain and functional limits. GOals not met. Adult Risk Screening There are no spiritual/cultural practices/values/needs that are important to know Initial Fall Risk Screening: MISAEL has not fallen in the last 6 months. MISAEL has a fear of falling. She does not need assistance with sitting, standing or walking. Does not need assistance walking in her home. She does not need assistance in an unfamiliar setting. The patient is using an assistive device. Pain Scale: On a scale of 0 to 10, the patient rates the pain at 5. Please identify location of pain: R hip/glut. Insurance Insurance reviewed Visit number: 9 [facility] Evaluating therapist Kenji Santoyo PT. The physical therapist of record is the therapist who assumes primary responsibility for patient management and as such is held accountable for the coordination, continuation and progression of the POC. This patient?s care and PT of record will be transferred from Kenji Santoyo PT to Alejandra MCDONALDT effective as of 07/29/22 M25.551; high fall risk Subjective Patient reports:. Pt notes she is still having a lot of pain in her right groin region as well as radiating down her leg. Pt notes she has an appointment with an orthopedic surgeon next Wednesday. States that her A1C is 8.5 currently down from 9.8. Patient identified by name and date of . Home program performing as directed: Partially. 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 Objective Ortho ROM / Joint Mobility (Range of Motion in degrees) Hip: (Mtz = P! Denotes Pain with Movement) Flexion: R Active 40. Gait / Mobility Gait: uses R cane; reduced R stance and step length. Strength Hip: (Mtz: P! Denotes Pain with Movement) Extension: 4-/5 on right, -->3/5 and 5/5 on left. Flexion: 4-/5 on right, -->3+/5 and 5/5 on left. Abduction: 4-/5 on right, -->4/5 and 5/5 on left. Knee: (Mtz: P! Denotes Pain with Movement) Knee extension was 5/5 on right, 5/5, 5/5 on left. Knee flexion was 5/5 on right, 5/5, 5/5 on left. Outcome Measures Lower Extremity Functional Scale score: -->8 Treatment Time in clinic started at 0400 Time in clinic ended at 0435 Total time in clinic is 35 minutes. Total timed code time is 32 minutes. Therapeutic exercise (32911): timed minutes 20, units 1 . Pt re-assessed for updated POC, updated/reviewed HEP, and discussed continued symptom management x 20' Not 08/24/22: Nustep 7' Seated Toe raises 2 x 10 Seated Heel raises 2 x 10 Seated hip ADD w/ play ball 2 x 10 2-3? hold Seated LAQ 2 x 10 Hooklying SAQ 2 x 10 hooklying bridge 2 x 10 hooklying clamshell 2 x10 green Hooklying marches 2 x 10 green Hooklying glute squeezes 2 x 10 (N) hooklying SLR 2x 10 B (X) Standing hip abd x10 B (not today) Standing march x10 B (not today) gait/balcne work as angelo-A. Manual Therapy (05273): timed minutes 12, units 1 . STW to R Glutes, Piriformis, IT band, and QL. Modalities:. Estim- IFC to R hip 15' (X). Provided today:. Handout given for progression of HEP this date. Patient verbalized and demo'd understanding of correct form and technique. Exercises given are listed below: 1. Seated hip ADD 2. Seated glute squeeze 3. Seated Heel/toe raises 4. LAQ. 'Scores and Scales' Signatures Electronically signed by : Alejandra Cutler, PT; Aug 24 2022 10:35PM EST (Author) Normal [facility] PT Progress Noteon 2 PT Progress Note Therapy Diagnosis Assessed Hip pain, right (719.45) (M25.551) Plan Goals: Goals set and discussed today. 1. Independent HEP to allow for 50% reduction in max ADL C/C sx ( 08/24) 2-3wks 2. 0/10 night time sx to allow for uninterrupted sleep x1wk ( 05/21) 2-3wks 3. Survey score improvement from (LEFS 3-4wks 4. Strength increase to allow for improved ADL STS, gait on flats/stairs(from 5. ROM increase to allow for improved ADL car transfers, dressing lowers (stdg active elevation from 40 to 80 deg) 3-4wks Planned interventions include: cryotherapy, education/instruction, gait training, home program, hot pack, kinesiotaping, manual therapy, neuromuscular re-education, self care/home management, therapeutic exercises and IASTM/cupping. Frequency and duration: 2 time(s) a week, for 4 weeks, for 8 visits. Potential to achieve rehab goals is fair: chronic syndrome Plan to continue with modalities for pain relief and progress strength and ROM as pain allows. Progress with POC, as tolerated. Assessment Patient has Mod antalgic gait when ambulating short distance from stepper to plinth approx 15 feet. Guards with all transfers in clinic. Tenderness along GT and glute during STW. Could not progress strength this date d/t patient pain levels. Adult Risk Screening There are no spiritual/cultural practices/values/needs that are important to know Initial Fall Risk Screening: MISAEL has not fallen in the last 6 months. MISAEL has a fear of falling. She does not need assistance with sitting, standing or walking. Does not need assistance walking in her home. She does not need assistance in an unfamiliar setting. The patient is using an assistive device. Please identify location of pain: R hip/glut. Insurance Insurance reviewed Visit number: 8 [facility] Evaluating therapist Kenji Santoyo PT. The physical therapist of record is the therapist who assumes primary responsibility for patient management and as such is held accountable for the coordination, continuation and progression of the POC. This patient?s care and PT of record will be transferred from Kenji Santoyo PT to Alejandra Matson DPT effective as of 07/29/22 M25.551; high fall risk Subjective Patient reports:. Patient reports current pain 6/10 today but is because she has had to start using the wheelchair at home d/t pain and inability to tolerate Wbing. States that her A1C is 8.5 currently down from 9.8. Patient identified by name and date of . Home program performing as directed: Partially. 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 Treatment Time in clinic started at 1:15 Time in clinic ended at 2:10 Total time in clinic is 55 minutes. Total timed code time is 40 minutes. Therapeutic exercise (26112): timed minutes 25, units 2 . Nustep 7' Seated Toe raises 2 x 10 Seated Heel raises 2 x 10 Seated hip ADD w/ play ball 2 x 10 2-3? hold Seated LAQ 2 x 10 Hooklying SAQ 2 x 10 hooklying bridge 2 x 10 hooklying clamshell 2 x10 green Hooklying marches 2 x 10 green Hooklying glute squeezes 2 x 10 (N) hooklying SLR 2x 10 B (X) Standing hip abd x10 B (not today) Standing march x10 B (not today) gait/balcne work as angelo-A. Manual Therapy (25681): timed minutes 15, units 1 . STW 14' to piriformis and glute. Modalities: untimed minutes 15, units 1 . Estim- IFC to R hip 15'. Provided today:. Handout given for progression of HEP this date. Patient verbalized and demo'd understanding of correct form and technique. Exercises given are listed below: 1. Seated hip ADD 2. Seated glute squeeze 3. Seated Heel/toe raises 4. LAQ. 'Scores and Scales' Signatures Electronically signed by : Giselle Guzman ELECTROENCEPHALOGRAPH TECHNICIAN; Aug 21 2022 2:11PM EST (Author) Electronically signed by : Alejandra Cutler, PT; Aug 24 2022 10:51PM EST Normal [facility] PT Progress Noteon 2 PT Progress Note Therapy Diagnosis Assessed Hip pain, right (719.45) (M25.551) Plan Goals: Goals set and discussed today. 1. Independent HEP to allow for 50% reduction in max ADL C/C sx ( 08/24) 2-3wks 2. 0/10 night time sx to allow for uninterrupted sleep x1wk ( 05/21) 2-3wks 3. Survey score improvement from 1380 (LEFS 3-4wks 4. Strength increase to allow for improved ADL STS, gait on flats/stairs(from 5. ROM increase to allow for improved ADL car transfers, dressing lowers (stdg active elevation from 40 to 80 deg) 3-4wks Planned interventions include: cryotherapy, education/instruction, gait training, home program, hot pack, kinesiotaping, manual therapy, neuromuscular re-education, self care/home management, therapeutic exercises and IASTM/cupping. Frequency and duration: 2 time(s) a week, for 4 weeks, for 8 visits. Potential to achieve rehab goals is fair: chronic syndrome Progress strength as pain allows and continue with STW and modalities. Progress with POC, as tolerated. Assessment Arrived in clinic area in W/C. Mod antalgic gait with use of AD when ambulating in clinic Loud audible crepitus heard with completion of bridges. Held SLR this date d/t inability to lift the leg d/t pain and crepitus. Observable increased difficulty with completion of PRE and gait this date. Adult Risk Screening There are no spiritual/cultural practices/values/needs that are important to know Initial Fall Risk Screening: MISAEL has not fallen in the last 6 months. MISAEL has a fear of falling. She does not need assistance with sitting, standing or walking. Does not need assistance walking in her home. She does not need assistance in an unfamiliar setting. The patient is using an assistive device. Please identify location of pain: R hip/glut. Insurance Insurance reviewed Visit number: 7 [facility] Evaluating therapist Kenji Santoyo PT. The physical therapist of record is the therapist who assumes primary responsibility for patient management and as such is held accountable for the coordination, continuation and progression of the POC. This patient?s care and PT of record will be transferred from Kenji Santoyo PT to Alejandra Matson DPT effective as of 07/29/22 M25.551; high fall risk Subjective Patient reports:. Patient reports that she was trying to stand and put food in the crock pot and was about in tears. States pain is a constant 8/10 with continued increased popping and cracking. States the crepitus occurs even when standing now. Patient feels pain is worsening and she is not sure how she will make it to September until her next F/U d/t pain worsening. Patient identified by name and date of . Home program performing as directed: Partially. 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 Treatment Time in clinic started at 3:30 Time in clinic ended at 4:25 Total time in clinic is 55 minutes. Total timed code time is 40 minutes. Therapeutic exercise (13878): timed minutes 25, units 2 . Nustep 7' Seated Toe raises 2 x 10 Seated Heel raises 2 x 10 Seated hip ADD w/ play ball 2 x 10 2-3? hold Seated LAQ 2 x 10 Hooklying SAQ 2 x 10 hooklying bridge 2 x 10 hooklying clamshell 2 x10 green Hooklying marches 2 x 10 green (N) Hooklying glute squeezes 2 x 10 (N) hooklying SLR 2x 10 B (X) Standing hip abd x10 B (not today) Standing march x10 B (not today) gait/balcne work as angelo-A. Manual Therapy (29031): timed minutes 15, units 1 . STW 14' to piriformis and glute. Modalities: untimed minutes 15, units 1 . Estim- IFC to R hip 15'. Provided today:. Handout given for progression of HEP this date. Patient verbalized and demo'd understanding of correct form and technique. Exercises given are listed below: 1. Seated hip ADD 2. Seated glute squeeze 3. Seated Heel/toe raises 4. LAQ. 'Scores and Scales' Signatures Electronically signed by : Giselle Guzman ELECTROENCEPHALOGRAPH TECHNICIAN; Aug 17 2022 5:25PM EST (Author) Electronically signed by : Alejandra Cutler PT; Aug 24 2022 10:51PM EST [facility] PT Progress Noteon 2 PT Progress Note Therapy Diagnosis Assessed Hip pain, right (719.45) (M25.551) Plan Goals: Goals set and discussed today. 1. Independent HEP to allow for 50% reduction in max ADL C/C sx ( 08/24) 2-3wks 2. 0/10 night time sx to allow for uninterrupted sleep x1wk ( 05/21) 2-3wks 3. Survey score improvement from 13/80 (LEFS 3-4wks 4. Strength increase to allow for improved ADL STS, gait on flats/stairs(from 5. ROM increase to allow for improved ADL car transfers, dressing lowers (stdg active elevation from 40 to 80 deg) 3-4wks Planned interventions include: cryotherapy, education/instruction, gait training, home program, hot pack, kinesiotaping, manual therapy, neuromuscular re-education, self care/home management, therapeutic exercises and IASTM/cupping. Frequency and duration: 2 time(s) a week, for 4 weeks, for 8 visits. Potential to achieve rehab goals is fair: chronic syndrome Progress strength as pain allows while trying not to exacerbate existing pain levels. Progress with POC, as tolerated. Assessment Held all standing PRE's this date d/t pain increase. Difficulty walking 8 feet in clinic d/t pain. Patient had to take very small steps to get from stepper bike to the plinth. Added more time with STW this date d/t glute/piriformis and hip flexor tightness. Added Unattended e-stim for pain relief, patient declined cryo or HP today in conjunction with e-stim. Patient denied all contraindications to e-stim use when questioned. Adult Risk Screening There are no spiritual/cultural practices/values/needs that are important to know Initial Fall Risk Screening: MISAEL has not fallen in the last 6 months. MISAEL has a fear of falling. She does not need assistance with sitting, standing or walking. Does not need assistance walking in her home. She does not need assistance in an unfamiliar setting. The patient is using an assistive device. Please identify location of pain: R hip/glut. Insurance Insurance reviewed Visit number: 6 [facility] Evaluating therapist Kenji Santoyo PT. The physical therapist of record is the therapist who assumes primary responsibility for patient management and as such is held accountable for the coordination, continuation and progression of the POC. This patient?s care and PT of record will be transferred from Kenji Santoyo PT to Alejandra Matson DPT effective as of 07/29/22 M25.551; high fall risk Subjective Patient reports:. Patient reports that she has had worsening pain since the last 3 days. Pain is at a constant 7/10. Has increased clicking/popping more in the hip and is getting more audible. Notes that she is getting A1C tested and then will call ortho back to see if she can get in sooner for F/U. She phoned them and they were waiting on A1C results before moving the appointment. States that she has been able to sleep. Patient identified by name and date of . Home program performing as directed: Partially. 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 Treatment Time in clinic started at 2:45 Time in clinic ended at 3:40 Total time in clinic is 55 minutes. Total timed code time is 40 minutes. Therapeutic exercise (31074): timed minutes 25, units 2 . Nustep 7' Seated Toe raises 2 x 10 Seated Heel raises 2 x 10 Seated hip ADD w/ play ball 2 x 10 2-3? hold Seated LAQ 2 x 10 Hooklying SAQ 2 x 10 hooklying bridge 2 x 10 hooklying clamshell 2 x10 green hooklying SLR 2x 10 B Standing hip abd x10 B (not today) Standing march x10 B (not today) gait/balcne work as angelo-A. Manual Therapy (87963): timed minutes 14, units 1 . STW 14' to piriformis and glute. Modalities: untimed minutes 15, units 1 . Estim- IFC to R hip 15'. Provided today:. Handout given for progression of HEP this date. Patient verbalized and demo'd understanding of correct form and technique. Exercises given are listed below: 1. Seated hip ADD 2. Seated glute squeeze 3. Seated Heel/toe raises 4. LAQ. 'Scores and Scales' Signatures Electronically signed by : Giselle Guzman ELECTROENCEPHALOGRAPH TECHNICIAN; Aug 14 2022 4:26PM EST (Author) Electronically signed by : Alejandra Cutler, PT; Aug 24 2022 10:51PM EST Normal [facility] PT Progress Noteon 2 PT Progress Note Therapy Diagnosis Assessed Hip pain, right (719.45) (M25.551) Plan Goals: Goals set and discussed today. 1. Independent HEP to allow for 50% reduction in max ADL C/C sx ( 08/24) 2-3wks 2. 0/10 night time sx to allow for uninterrupted sleep x1wk ( 05/21) 2-3wks 3. Survey score improvement from 1380 (LEFS 3-4wks 4. Strength increase to allow for improved ADL STS, gait on flats/stairs(from 5. ROM increase to allow for improved ADL car transfers, dressing lowers (stdg active elevation from 40 to 80 deg) 3-4wks Planned interventions include: cryotherapy, education/instruction, gait training, home program, hot pack, kinesiotaping, manual therapy, neuromuscular re-education, self care/home management, therapeutic exercises and IASTM/cupping. Frequency and duration: 2 time(s) a week, for 4 weeks, for 8 visits. Potential to achieve rehab goals is fair: chronic syndrome Progress CKC for improved function as pain allows. Progress with POC, as tolerated. Assessment Patient had exacerbation of pain with all treatment activities today. Palpable tenderness and spasms along the glute and GT region. Improved ability to complete SLR but needed rest breaks between each set of reps. Adult Risk Screening There are no spiritual/cultural practices/values/needs that are important to know Initial Fall Risk Screening: MISAEL has not fallen in the last 6 months. MISAEL has a fear of falling. She does not need assistance with sitting, standing or walking. Does not need assistance walking in her home. She does not need assistance in an unfamiliar setting. The patient is using an assistive device. Please identify location of pain: R hip/glut. Insurance Insurance reviewed Visit number: 5 [facility] Evaluating therapist Kenji Santoyo PT. The physical therapist of record is the therapist who assumes primary responsibility for patient management and as such is held accountable for the coordination, continuation and progression of the POC. This patient?s care and PT of record will be transferred from Kenji Santoyo PT to Alejandra Matson DPT effective as of 07/29/22 M25.551; high fall risk Subjective Patient reports:. Patient reports that she is in 8/10 pain currently. States that she is worried about her sugar and A1C being high at last visit. Wants to have another work up done to check A1C. Patient has F/U with in September but wants to move the appt up sooner if able. Patient identified by name and date of . Home program performing as directed: Partially. 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 Treatment Time in clinic started at 10:51 Time in clinic ended at 11:31 Total time in clinic is 40 minutes. Total timed code time is 38 minutes. Therapeutic exercise (61434): timed minutes 28, units 2 . Nustep 7' Seated Toe raises 2 x 10 Seated Heel raises 2 x 10 Seated hip ADD w/ play ball 2 x 10 2-3? hold Seated LAQ 2 x 10 Hooklying SAQ 2 x 10 hooklying bridge 2 x 10 hooklying clamshell 2 x10 green hooklying SLR 2x 10 B Standing hip abd x10 B Standing march x10 B gait/balcne work as angelo-A. Manual Therapy (15095): timed minutes 10, units 1 . STW 10' to piriformis and glute. Provided today:. Handout given for progression of HEP this date. Patient verbalized and demo'd understanding of correct form and technique. Exercises given are listed below: 1. Seated hip ADD 2. Seated glute squeeze 3. Seated Heel/toe raises 4. LAQ. 'Scores and Scales' Signatures Electronically signed by : Giselle Guzman ELECTROENCEPHALOGRAPH TECHNICIAN; Aug 10 2022 4:15PM EST (Author) Electronically signed by : Alejandra Cutler, PT; Aug 24 2022 10:51PM EST Normal [facility] PT Progress Noteon 2 PT Progress Note Therapy Diagnosis Assessed Hip pain, right (719.45) (M25.551) Plan Goals: Goals set and discussed today. 1. Independent HEP to allow for 50% reduction in max ADL C/C sx ( 1010) 2-3wks 2. 0/10 night time sx to allow for uninterrupted sleep x1wk ( 05/21) 2-3wks 3. Survey score improvement from 13/80 (LEFS 3-4wks 4. Strength increase to allow for improved ADL STS, gait on flats/stairs(from 5. ROM increase to allow for improved ADL car transfers, dressing lowers (stdg active elevation from 40 to 80 deg) 3-4wks Planned interventions include: cryotherapy, education/instruction, gait training, home program, hot pack, kinesiotaping, manual therapy, neuromuscular re-education, self care/home management, therapeutic exercises and IASTM/cupping. Frequency and duration: 2 time(s) a week, for 4 weeks, for 8 visits. Potential to achieve rehab goals is fair: chronic syndrome Progress ther ex for continued improved functional mobility and strength with ADL's. Progress with POC, as tolerated. Assessment Patient identified by name and date of . Patient was able to progress with standing exercises this date she demonstrated quick fatigue. She required cues to slow down and maintain hold times. She presented with palpable tension in gluts that responded well to STW. Adult Risk Screening There are no spiritual/cultural practices/values/needs that are important to know Initial Fall Risk Screening: MISAEL has not fallen in the last 6 months. MISAEL has a fear of falling. She does not need assistance with sitting, standing or walking. Does not need assistance walking in her home. She does not need assistance in an unfamiliar setting. The patient is using an assistive device. Pain Scale: On a scale of 0 to 10, the patient rates the pain at 8. Please identify location of pain: R hip/glut. Insurance Insurance reviewed Visit number: 4 [facility] Evaluating therapist Kenji Santoyo PT. The physical therapist of record is the therapist who assumes primary responsibility for patient management and as such is held accountable for the coordination, continuation and progression of the POC. This patient?s care and PT of record will be transferred from Kenji Santoyo PT to Alejandra Matson DPT effective as of 07/29/22 M25.551; high fall risk Subjective Patient reports:. Patient reported she awoke this AM. 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 Treatment Time in clinic started at 10:51 Time in clinic ended at 11:31 Total time in clinic is 40 minutes. Total timed code time is 38 minutes. Therapeutic exercise (24931): timed minutes 28, units 2 . Nustep 7' (P time) Seated Toe raises 2 x 10 Seated Heel raises 2 x 10 Seated hip ADD w/ play ball 2 x 10 2-3? hold Seated LAQ 2 x 10 Hooklying SAQ 2 x 10 hooklying bridge 2 x 10 hooklying clamshell 2 x10 green hooklying SLR 2x 10 B Standing hip abd x10 B Standing march x10 B gait/balcne work as angelo-A. Manual Therapy (95044): timed minutes 10, units 1 . STW 10' to piriformis and glute. Provided today:. Handout given for progression of HEP this date. Patient verbalized and demo'd understanding of correct form and technique. Exercises given are listed below: 1. Seated hip ADD 2. Seated glute squeeze 3. Seated Heel/toe raises 4. LAQ. 'Scores and Scales' Signatures Electronically signed by : Yahaira West ELECTROENCEPHALOGRAPH TECHNICIAN; Aug 07 2022 11:42AM EST (Author) Electronically signed by : Alejandra Cutler, PT; Aug 24 2022 10:51PM EST [facility] PT Progress Noteon 2 PT Progress Note Therapy Diagnosis Assessed Hip pain, right (719.45) (M25.491) Plan Goals: Goals set and discussed today. 1. Independent HEP to allow for 50% reduction in max ADL C/C sx ( 08/24) 2-3wks 2. 0/10 night time sx to allow for uninterrupted sleep x1wk ( 05/21) 2-3wks 3. Survey score improvement from (LEFS 3-4wks 4. Strength increase to allow for improved ADL STS, gait on flats/stairs(from 5. ROM increase to allow for improved ADL car transfers, dressing lowers (stdg active elevation from 40 to 80 deg) 3-4wks Planned interventions include: cryotherapy, education/instruction, gait training, home program, hot pack, kinesiotaping, manual therapy, neuromuscular re-education, self care/home management, therapeutic exercises and IASTM/cupping. Frequency and duration: 2 time(s) a week, for 4 weeks, for 8 visits. Potential to achieve rehab goals is fair: chronic syndrome Progress ther ex for continued improved functional mobility and strength with ADL's. Progress with POC, as tolerated. Assessment Patient arrived in W/C and was wheeled into clinic by ELECTROENCEPHALOGRAPH TECHNICIAN. Able to ambulate short distances with cane but continues with flexed trunk posture. No new exercises added this date d/t pait Patient arrived with pushing patient in W/C. Patient brought STD cane to use with ambulation in the clinic. Difficulty with ambulation d/t pain in hip causing patient to slightly flex forward during stance and gait. Completed new PRE's as well as reviewed HEP. STW was completed with decreased pain afterward. Adult Risk Screening There are no spiritual/cultural practices/values/needs that are important to know Initial Fall Risk Screening: MISAEL has not fallen in the last 6 months. MISAEL has a fear of falling. She does not need assistance with sitting, standing or walking. Does not need assistance walking in her home. She does not need assistance in an unfamiliar setting. The patient is using an assistive device. Please identify location of pain: R hip. Insurance Insurance reviewed Visit number: 3 [facility] Evaluating therapist Kenji Santoyo PT. The physical therapist of record is the therapist who assumes primary responsibility for patient management and as such is held accountable for the coordination, continuation and progression of the POC. This patient?s care and PT of record will be transferred from Kenji Santoyo PT to Alejandra Matson DPT effective as of 07/29/22 M25.551; high fall risk Subjective Patient reports:. Patient reports that her hip is popping and cracking. States that she has been sore since her last visit. Pain is more constant but not as intense since doing HEP. Current 6/10 currently 9/10 earilier in the day. States that she is taking Tylenol and Tramadol for pain. Patient identified by name and date of . Home program performing as directed: Yes. 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 Treatment Time in clinic started at 3:30 Time in clinic ended at 3:45 Total time in clinic is 45 minutes. Total timed code time is 43 minutes. Therapeutic exercise (13955): timed minutes 32, units 2 . Nustep 6' (P time) Seated Toe raises 2 x 10 Seated Heel raises 2 x 10 Seated hip ADD w/ play ball 2 x 10 Seated LAQ 2 x 10 Hooklying SAQ 2 x 10 (N) hooklying bridge 2 x 10 (P reps) hooklying clamshell 2 x10 green (P reps) hooklying SLR 2 x 5 (P reps) gait/balcne work as angelo-A. Manual Therapy (79370): timed minutes 10, units 1 . STW 10' to piriformis and glute. Provided today:. Handout given for progression of HEP this date. Patient verbalized and demo'd understanding of correct form and technique. Exercises given are listed below: 1. Seated hip ADD 2. Seated glute squeeze 3. Seated Heel/toe raises 4. LAQ. 'Scores and Scales' Signatures Electronically signed by : Giselle Guzman ELECTROENCEPHALOGRAPH TECHNICIAN; Aug 03 2022 5:57PM EST (Author) Electronically signed by : Alejandra Cutler PT; Aug 03 2022 11:13PM EST [facility] PT Progress Noteon 2 PT Progress Note Therapy Diagnosis Assessed Hip pain, right (719.45) (M25.551) Plan Goals: Goals set and discussed today. 1. Independent HEP to allow for 50% reduction in max ADL C/C sx ( 10) 2-3wks 2. 0/10 night time sx to allow for uninterrupted sleep x1wk ( 05/21) 2-3wks 3. Survey score improvement from (LEFS 3-4wks 4. Strength increase to allow for improved ADL STS, gait on flats/stairs(from 5. ROM increase to allow for improved ADL car transfers, dressing lowers (stdg active elevation from 40 to 80 deg) 3-4wks Planned interventions include: cryotherapy, education/instruction, gait training, home program, hot pack, kinesiotaping, manual therapy, neuromuscular re-education, self care/home management, therapeutic exercises and IASTM/cupping. Frequency and duration: 2 time(s) a week, for 4 weeks, for 8 visits. Potential to achieve rehab goals is fair: chronic syndrome Progress ther ex for continued improved functional mobility and strength with ADL's. Progress with POC, as tolerated. Assessment Patient arrived with pushing patient in W/C. Patient brought STD cane to use with ambulation in the clinic. Difficulty with ambulation d/t pain in hip causing patient to slightly flex forward during stance and gait. Completed new PRE's as well as reviewed HEP. STW was completed with decreased pain afterward. Updated HEP this date. Adult Risk Screening There are no spiritual/cultural practices/values/needs that are important to know Initial Fall Risk Screening: MISAEL has not fallen in the last 6 months. MISAEL has a fear of falling. She does not need assistance with sitting, standing or walking. Does not need assistance walking in her home. She does not need assistance in an unfamiliar setting. The patient is using an assistive device. Please identify location of pain: R hip. Insurance Insurance reviewed Visit number: 1 [facility] Evaluating therapist Kenji Santoyo PT. The physical therapist of record is the therapist who assumes primary responsibility for patient management and as such is held accountable for the coordination, continuation and progression of the POC. This patient?s care and PT of record will be transferred from Kenji Santoyo PT to Alejandra Matson DPT effective as of 07/29/22 M25.551; high fall risk Subjective Patient reports:. Patient reports that she is doing HEP Current 810 pain. Takes Tylenol all th time for pain relief and has Rx for Tramadol. States that she has walker at home for safety. States that she is unable to stand straight up. Next F/U with [facility] is 10/13 and wants her to do PT and A1C down. Patient identified by name and date of . Home program performing as directed: Yes. 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 Treatment Time in clinic started at 10:00 Time in clinic ended at 10:45 Total time in clinic is 45 minutes. Total timed code time is 42 minutes. Therapeutic exercise (51038): timed minutes 32, units 2 . Nustep 5' (N) Seated Toe raises 2 x 10 (N) Seated Heel raises 2 x 10 (N) Seated hip ADD w/ play ball 2 x 10 (N) Seated LAQ 2 x 10 (N) Hooklying SAQ 2 x 10 (A) hooklying bridge x10 hooklying clamshell x10 green hooklying SLR x 5 gait/balcne work as angelo-A. Manual Therapy (04145): timed minutes 10, units 1 . STW 10' to piriformis and glute. Provided today:. Handout given for progression of HEP this date. Patient verbalized and demo'd understanding of correct form and technique. Exercises given are listed below: 1. Seated hip ADD 2. Seated glute squeeze 3. Seated Heel/toe raises 4. LAQ. 'Scores and Scales' Signatures Electronically signed by : Giselle Guzman, ELECTROENCEPHALOGRAPH TECHNICIAN; Jul 31 2022 12:58PM EST (Author) Electronically signed by : Alejandra Cutler, PT; Aug 03 2022 11:13PM EST [facility] PT Initial Evaluationon 07-16 PT Initial Evaluation Therapy Diagnosis Assessed Hip pain, right (719.45) (M25.551) Plan of Care Goals: Goals set and discussed today. 1. Independent HEP to allow for 50% reduction in max ADL C/C sx ( 08/24) 2-3wks 2. 0/10 night time sx to allow for uninterrupted sleep x1wk ( 05/21) 2-3wks 3. Survey score improvement from 13/80 (LEFS 3-4wks 4. Strength increase to allow for improved ADL STS, gait on flats/stairs(from 5. ROM increase to allow for improved ADL car transfers, dressing lowers (stdg active elevation from 40 to 80 deg) 3-4wks Planned interventions include: cryotherapy, education/instruction, gait training, home program, hot pack, kinesiotaping, manual therapy, neuromuscular re-education, self care/home management, therapeutic exercises and IASTM/cupping. Frequency and duration: 2 time(s) a week, for 4 weeks, for 8 visits. Potential to achieve rehab goals is fair: chronic syndrome Plan of care was developed with input and agreement by the patient. Assessment 20 yr hip pain HX has become worse over the last yr. ++ films for bone on bone per patient. The patient has needed to use a WC for community ambulation the last 3 wks due to pain. The patient will also use a cane and/or walker. Physical findings include limited active ROM and strength at the R hip. The patient will be a high fall risk. Continue with R hip open to closed ROM and PRE as angelo. Gait/balance work can also be done as angelo. Clinical Presentation: Stable and/or uncomplicated characteristics. Level of Complexity: low Problem List: activity limitations, ADLs/IADLs/self care skills, balance, decreased functional level, decreased knowledge of HEP, decreased knowledge of precautions, fall risk, gait/locomotion, pain, range of motion/joint mobility, strength and transfers. Reason For Visit Initial Evaluation . R hip pain/OA. Referred by: Carey Gonzalez Adult Risk Screening There are no spiritual/cultural practices/values/needs that are important to know Initial Fall Risk Screening: MISAEL has not fallen in the last 6 months. MISAEL has a fear of falling. She does not need assistance with sitting, standing or walking. Does not need assistance walking in her home. She does not need assistance in an unfamiliar setting. The patient is using an assistive device. Pain Scale: On a scale of 0 to 10, the patient rates the pain at 10. Please identify location of pain: R hip. Insurance Insurance reviewed Visit number: 1 [facility] Evaluating therapist Kenji Santoyo PT. The physical therapist of record is the therapist who assumes primary responsibility for patient management and as such is held accountable for the coordination, continuation and progression of the POC. This patient?s care and PT of record will be transferred from Kenji Santoyo PT to Alejandra MCDONALDT effective as of 07/29/22 M25.551; high fall risk Subjective Current Episode of Functional Impairment and/or Pain Date of onset: Mechanism of Injury:. chronic sx onset. Medical Screening: Reviewed medical history form with patient and medical screening assessed. Current Medical Management:. 06/29 films were taken; chirop HX. 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 Functional Assessment Prior level of function: PAINFUL, DIFFICULT, OR ALTERED ADL (marked with an xx) sleep--XX sitting-- sit to standing transfers--XX car transfers--XX standing-- walking--XX carrying-- stairs--XX dressing lowers--XX driving-- dressing uppers-- reaching---- handling objects-- other-- . Patient stated goal(s) for treatment include: relieving pain , increasing strength , increasing mobility , walking with a normal gait , reducing symptoms , reducing/preventing future occurrences and learning preventative care measures . Work Status: retired. Current Status: worsening . worse sx over the last 4 mths. Patient Awareness: Patient is aware of her diagnosis and prognosis. Personal Factors That May Impact Care:. ID confirmed with B-day; speaks macedonian No obtrusive barriers to learning identified/observed. Objective Ortho ROM / Joint Mobility (Range of Motion in degrees) Hip: (Mtz = P! Denotes Pain with Movement) Flexion: R Active 40. Gait / Mobility Gait: uses R cane; reduced R stance and step length. Strength Hip: (Mtz: P! Denotes Pain with Movement) Extension: 4-/5 on right and 5/5 on left. Flexion: 4-/5 on right and 5/5 on left. Abduction: 4-/5 on right and 5/5 on left. Knee: (Mtz: P! Denotes Pain with Movement) Knee extension was 5/5 on right, 5/5 on left. Knee flexion was 5/5 on right, 5/5 on left. Outcome Measures Lower Extremity Functional Scale score: 13/80 Treatment Time in clinic started at 8:44 am Time in clinic ended at 10:25 am Total time in clinic is 41 minutes. Total timed code time is 10 minutes. Treatment Performed Today:. hooklying bridge x10 harvey (more content not included)... [facility] 06-29-2022 XR Pelvis and Hip - left 2 Views [facility] rafal Crump Work Phone: [facility] Density DEXAon 03-10 [facility] DEXA Exam Date/Time: 03/10/2019 13:54 EDT Reason for Exam: POST MENOPAUSAL Report STUDY: [facility]ensity DEXA; 03/10/2019 1:54 pm INDICATION: POST MENOPAUSAL. Evaluate for osteopenia/osteoporosis, ACCESSION NUMBER(S): [id number] ORDERING CLINICIAN: Girish Simon FINDINGS: Standard measurements were obtained utilizing an [employer] X-ray Absorptiometry bone densitometer. Data obtained includes planar bone density measurements over the left hip and lumbar spine. Comparison of measured data and standardized mean data for a young adult population (when peak bone mass occurs) results in a T score. This represents the number of standard deviations above or below the mean of a young adult population. Comparison of measured data to standards from an age-adjusted population similarly yields a Z score. Left femoral neck Bone density: 0.700 g/cm2 T score: -1.3 Z Score: 0.4 Lumbar Spine (L1-4) Bone density: 1.242 g/cm2 T Score: 1.8 Z Score: 3.8 World Health Organization (WHO) criteria defines normal bone density as that which is less than 1 standard deviation below the mean of a young adult population. Osteopenia is defined as a measured bone density that is between 1 and 2.5 standard deviations below the mean of a young adult population. Osteoporosis is defined as a measured bone density that is greater than or equal to 2.5 standard deviations below the mean of a young adult population. IMPRESSION: According to World Health Organization criteria, bone mineral density of the left femoral neck and lumbar spine is osteopenic. The patient is at increased risk for fracture. Exam Date/Time: 03/10/2019 13:54 EDT Report 10 year fracture risk for major osteoporotic fracture is 7.6 %. 10 year fracture risk for hip fracture 0.8 % according to the World Health Organization FRAX- fracture risk assessment tool. FINAL REPORT Dictated: 03/10/2019 2:00 pm Hussain Garcia MD Signed (Electronic Signature): 03/10/2019 2:00 pm Signed by: Hussain Garcia MD Technologist: [facility] MRA CAROTID WO/W IVCONon MRA CAROTID WO/W IVCON * * *Final Report * * *DATE OF EXAM: Jun 24 2018 1:52PM [facility] 0276 - MRA CAROTID WO/W IVCON / REASON: I70.90-Unspecified atherosclerosis * * * * Physician Interpretation * * * * MRA CAROTID WO/W IVCONHISTORY: Left vision loss. Unspecified atherosclerosisCOMPARISO N: None.TECHNIQUE: Intracranial 3D [id number] MRA with 2D multiplanar and 3D maximum intensity projections calculated on the imaging workstation under physician supervision. [After administration of intravenous contrast, high-resolution postcontrast images were obtained through the cervical arterial system. 2D and 3D multiplanar reformats were obtained on the imaging workstation under physician supervision.]Contrast: Dotarem.Contrast Dose: 20 ccRoute of Administration: IVRESULT:MRA NECK/CAROTID:Carotid arteries:Right Common: No significant stenosis.Right Internal Plaque: No significant plaque formation.Right Internal Carotid Stenosis (% by NASCET Criteria): 0Left Common: No significant stenosis.Left Internal Carotid Plaque: Atherosclerotic plaque which may be partially calcified at the left carotid bifurcation/ICA origin contributes to focal narrowing (image 71 series 4).Left Internal Carotid Stenosis (% by NASCET Criteria): 40Cervical Vertebral Arteries: Decreased intraluminal signal/enhancement at the proximal cervical vertebral arteries is favored to relate to pulsation artifact rather than true stenosis. The cervical vertebral arteries are otherwise patent throughoutPatency: BilateralDominance: CodominantEnhancement: [No abnormal enhancement.]IMPRESSION: Focal moderate stenosis of the left carotid bifurcation/ICA origin.Otherwise unremarkable.Transcripti onist: AKBAR Transcribe Date/Time: Jun 24 2018 2:11PDictated by : MURRAY NICOLE MDThiwilberto examination was interpreted and the report reviewed and electronically signed by: MURRAY NICOLE MD on Jun 24 2018 2:18PM [id number] N [facility] ANES Long 06-02-2018 ANES POST HNO ID: [id number]: Reynaldo Liebermane: AnesthesiologyAuthor Type: AnesthesiologistType: Anesthesia PostOpFiled: 06/02/2018 3:59 PMNote Text:POST ANESTHESIA EVALUATION NOTESERVICE DATE: 06/02/2018SERVICE TIME: 3:59 PMDOB: 1950Vitals: Temp: 36.2 ?C (97.2 ?F) 06/02/1815BP: 188/81 176/72 163/69 145/65 06/02/1815Pulse: 105 92 76 77 06/02/1815Resp: 18 16 16 16 06/02/1815SpO2: 95% 96% 98% 93%Validated Vital Signs: YesPOST ANES STATUS: No apparent anesthetic complications. The patient isappropriately hydrated with stable respiratory and cardiovascular status.Patient has safe and adequate airway control. The patient has appropriatepain relief and no significant post operative nausea or vomiting. Thepatient has achieved baseline mental status.Further assessment by Anesthesia Service: NoneOther Remarks:SIGNATURE: Reynaldo Rubio MD PATIENT NAME: Misael MedinaDATE: June 02, 2018 : 3:59 PM PAGER/CONTACT #: [phone] [facility] ANES PREOPon 06-02-2018 ANES PREOP HNO ID: [id number]: Reynaldo Liebermane: AnesthesiologyAuthor Type: AnesthesiologistType: Anesthesia PreOpFiled: 06/02/2018 12:19 PMNote Text: ANESTHESIOLOGY DAY OF SURGERY NOTESERVICE DATE: 06/02/2018SERVICE TIME: 12:19 PMDOB: 1950Procedure(s) (LRB):ECHOCARDIOGRAM TRANSESOPHOGEAL (N/A)Surgeon(s):Yasmeen Cleveland SyedEstimated body mass index is 49.6 kg/m? as calculated from the following: Height as of 05/20/18: 154.9 cm (5' 1). Weight as of 05/20/18: 119.1 kg (262 lb 8 oz).Most recent hematocrit and potassium results:Hematocrit 39.5 05/20/2018Potassium 5.2 05/20/2018ANES DOS/PREOP NOTE: Vitals:There were no vitals filed for this visit.ACTIVE PROBLEM LISTHypermetropiaRegular AstigmatismPresbyopiaCom bined Form of Senile Cataract of Both EyesMultiple Defects of Retina Without DetachmentType 2 Diabetes Mellitus With Right Eye Affected By Mild NonproliferativeRetinopa thy Without Macular Edema, Without Long-Term Current Use ofInsulin (Hcc)Central Retinal Artery Occlusion, Left EyeEssential HypertensionStroke (Hcc)PAST MEDICAL HISTORYDiagnosis Date- Arthritis- Diabetes mellitus (HCC)- Elevated cholesterol- Hx of cancer of endometrium 2013- Hypertension- HypothyroidismPAST SURGICAL HISTORYProcedure Laterality Date- HYSTERECTOMY HX- RADIATION THERAPY- REMOVAL GALLBLADDERFAMILY HISTORYProblem Relation Age of Onset- No Ocular Disease Father- Heart Father- Diabetes Father- Hypertension Father- No Ocular Disease Mother- Hypertension Mother- Diabetes Mother- No Ocular Disease Sister- Diabetes Sister- No Ocular Disease Brother- No Ocular Disease Maternal Grandmother- No Ocular Disease Maternal Grandfather- No Ocular Disease Paternal Grandmother- No Ocular Disease Paternal GrandfatherSocial History:Social HistorySubstance Use Topics- Smoking status: Never Smoker- Smokeless tobacco: Never Used- Alcohol use NoNo current facility-administered medications on file prior to encounter.Current Outpatient Prescriptions on File Prior to Encounter:quinapril (ACCUPRIL) 20 mg tablet Take 20 mg by mouth once daily.amLODIPine-Atorvas tatin 10-10 mg per tabletlevothyroxine (SYNTHROID) 100 mcg tabletQuinapril-Hydrochl orothiazide 20-12.5 mg per tabletPioglitazone-metFO RMIN 15-500 mg per tabletacetaminophen (TYLENOL) 325 mg tablet Take 650 mg by mouth every 6 hoursas needed.Current Facility-Administered Medications:NaCl 0.9% iv infusion 5-30 mL/hr INTRAVENOUS MALENA [place]ergies:TO CANDELARIOAllergejabier Reactions- Seasonal Allergies Other: See Comments Sinus issuesDOS EXAM: Adequate NPO status: YesAnesthetic risks, benefits, alternatives, personnel and consent discussed:YesPatient agrees to proceed: YesPrevious Anesthesia: No history of adverse event.Airway Assessment: MP 2; Neck ROM: Full ROM without neurologic symptoms;Airway Evaluation: No significant abnormalitiesSymptoms of Sleep Apnea: SnoringDentition: Teeth intactAdditional Physical Exam:Lungs: Patient health status unchanged since recent history and physical.See history and physical for exam findings.Cardiac: Patient health status unchanged since recent history andphysical. See history and physical for exam findings.Additional Pertinent Findings: N/ABlood Products: Not anticipated for this procedure.Anesthetic Plan: MAC with SedationPain Management Plan: Parenteral or OralASA Class: 3Other Medical Problems: dmhtnhypothyroidI have interviewed and examined the patient. I have reviewed the medicalrecord and/or the pre-anesthesia evaluation, pertinent labs, and testresults.Significant changes in the patient's condition since the History andPhysical, not otherwise documented in primary service progress notes: NoThis contains updated information obtained within 48 hours ofSurgery/Procedure.SIGN ATURE: Reynaldo Rubio MD PATIENT NAME: Misael MedinaDATE: June 02, 2018 : 12:19 PM CSN: [id number] Normal [facility] HISTORY PHYSICALon 8 HISTORY PHYSICAL HNO ID: [id number]: Yasmeen Cleveland SyedService: Cardiovascular MedicineAuthor Type: PhysicianType: HANDPFiled: 06/02/2018 12:40 PMNote Text:UPDATED HISTORY AND PHYSICAL EXAMINATIONSERVICE DATE: 06/02/2018SERVICE TIME: 12:40 PMPHYSICAL EXAM MUST BE COMPLETED ON ADMISSIONThe History and Physical (completed in the past 30 days) has been reviewedand the patient has been examined. The contents accurately reflect thepatient's condition with the following additions or revisions since theHANDP was completed.Examination indicates no changes.This HANDP can be found in the Electronic Medical Record dated 2017.SIGNATURE: Yasmeen López MD PATIENT NAME: Misael MedinaDATE: June 02, 2018 : 12:40 PM PAGER: [phone] [facility] NURSING PROGon 06-02-2018 Protein mass conc HNO ID: [id number]: Tyrell ZunigaRn) VENTURA Kruseervice: NursingAuthor Type: Registered NurseType: Nursing Progress NoteFiled: 06/02/2018 12:32 PMNote Text:Patient states she had a muffin at 0645. Dr Rubio aware. Informedpatient needs to be delayed and proceed with procedure at 1445. [place] to notify Dr López. Patient aware and agreeable. [facility] PT EDon 06-02-2018 PT ED HNO ID: [id number]: VENTURA Castaneda Rnervice: NursingAuthor Type: Registered NurseType: Patient EducationFiled: 06/02/2018 5:43 PMNote Text:POST OP LEARNING RESPONSEINSTRUCTION PROVIDED TO: Patient and family memberMETHOD OF INSTRUCTION: Individual instructionPATIENT / FAMILY RESPONSE: Verbalizes understanding of: POST-OPERATIVEINSTRUCTIO NS-Correct actions to take to reduce postoperative complicationsFOLLOW-UP PLAN: Patient instructed to call with any further issuesSUPPLEMENTAL MATERIAL: NoneREFERRAL (RECOMMENDATION): NoneElectronically Signed By: Darcy Davidson RN In Department: [facility] CATH LABPATIENT EDUCATION TOPIC: PROCEDURE / SURGERY: Post-opTeaching:PATIENT NAME: Misael MedinaMRN: [id number] LOCATION: [facility] Cath LabREADINESS TO LEARNCOGNITIVE ABILITY: Alert and orientedMOTIVATION TO LEARN: InterestedFAMILY SUPPORT: High - Very involved in pt careINSTRUCTION PROVIDED TO: Patient and family memberPATIENT LEARNS BEST BY: Individual InstructionFACTORS AFFECTING LEARNING: NonePHYSICAL LIMITATIONS AFFECTING LEARNING: NoneLEARNING RESPONSEDIAGNOSIS: ADULT: Well AdultPATIENT/FAMILY RESPONSE: Verbalizes understanding of: POST-OPERATIVEINSTRUCTIO NS-Correct actions to take to reduce postoperative complicationsMETHOD OF INSTRUCTION: Individual instructionFOLLOW-UP PLAN: Patient instructed to call with any further issuesINSTRUCTIONAL AIDS USED: NASUPPLEMENTAL MATERIAL PROVIDED TO PATIENT: NoneREFERRAL (RECOMMENDATION): NoneElectronically Signed By: Darcy Davidson RN [facility] PT ED HNO ID: [id number]: Tyrell (Rn) VENTURA Kruseervice: NursingAuthor Type: Registered NurseType: Patient EducationFiled: 06/02/2018 12:15 PMNote Text:PRE OP LEARNING ASSESSMENTPROCEDURE/SURG JOHANNA: SURGERY: teeREADINESS TO LEARNCOGNITIVE ABILITY: Alert and orientedMOTIVATION TO LEARN: EagerFAMILY SUPPORT: High - Very involved in pt carePATIENT LEARNS BEST BY: Individual InstructionVerbal InstructionFACTORS AFFECTING LEARNING: NonePHYSICAL LIMITATIONS AFFECTING LEARNING: NoneElectronically Signed By: Tyrell Kruse RN In [facility] CAROTID BILon 06-02-2018 Bilirubin.direct mass conc * * *Final Report* * *DATE OF EXAM: Jun 02 2018 9:04AM U 1077 - CAROTID BETTY / REASON: multiple diagnoses * * * * Physician Interpretation * * * * CAROTID ULTRASOUND 06/02/2018 9:04 AMHISTORY: Cerebral infarction, unspecified Unspecified visual field defects , evaluate for carotid stenosis.COMPARISON: NoneTECHNIQUE: Carotid ultrasound performed using grayscale, spectral Doppler and color Doppler.RESULT:Moderate left-sided plaque formation.Right side:Peak ICA systolic velocity (cm/s): 81Peak ICA end diastolic velocity (cm/s): 19Peak ICA systolic velocity ratio: 0.9Right side ICA stenosis estimation: 0-29%.Left side:Peak ICA systolic velocity (cm/s): 210Peak ICA end diastolic velocity (cm/s): 35Peak ICA systolic velocity ratio: 2.3Left side ICA stenosis estimation: 30-49%.Vertebral artery flow is antegrade bilaterally.IMPRESSION:E STIMATION OF INTERNAL CAROTID ARTERY STENOSIS:0-29% stenosis on the right.30-49% stenosis on the left.NASCET criteria used.Deal Architect: AKBAR Transcribe Date/Time: Jun 02 2018 9:23ADictated by : SADIE PELAYO MDThis examination was interpreted and the report reviewed and electronically signed by: SADIE PELAYO MD on Jun 02 2018 9:25AM [id number] N [facility] HOSPon 05-20-2018 HOSP Patient:Ed Medina DMRN: Height:5' 1(1.549 m)Weight:262 lb 8 oz (119.069 kg)Outpatient Medications as of 06/02/18:quinapril (ACCUPRIL) 20 mg tabletamLODIPine-Atorvas tatin 10-10 mg per tabletlevothyroxine (SYNTHROID) 100 mcg tabletQuinapril-Hydrochl orothiazide 20-12.5 mg per tabletPioglitazone-metFO RMIN 15-500 mg per tabletacetaminophen (TYLENOL) 325 mg tabletAdmission/Clinic Administered Medications as of 06/02/18:Patient has no admission medications.Problem List:Hypermetropia [H52.00]Regular astigmatism [H52.229]Presbyopia [H52.4]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]Multiple defects 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 [H33.339]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retinopa thy without macular edema, without long-term current use of insulin([facility]) [E11.3291]Central retinal artery occlusion, left eye [H34.12]Essential hypertension [I10]Stroke ([facility]) [I63.9]Allergies:Seasona l AllergiesDate Verified: 06/01/18Lab ValuesLab Value Units Date High LowPOTA* 5.2 mmol/L 05/20/2018 5.1 3.7HEMA* 39.5 % 05/20/2018 46.0 36.0Progress Notes ([facility]):Yasmeen López MD 05/23/2018 9:07 AM SignedLabs are okay but we need to watch renal function closely. Repeat basicmetabolic profile in one month.Lena Mccone 05/23/2018 11:20 AM SignedPatient notified, states understandingProgress Notes ([facility]):Yasmeen López MD 05/20/2018 11:24 AM SignedHeart and Vascular InstituteSECTION OF [facility] CARDIOLOGYOUTPATIENT VISIT DATE May 20, 2018OUTPATIENT VISIT TYPEConsultPatient is being seen at the request of Dr Kody Baxter for Stroke work up andleft eye vision loss.LeftHISTORY OF PRESENT ILLNESS:Ms. Medina is a 67 year old female Had left eye visual field loss last monthand had a CAT scan of her head in [place] where she was visiting and wastold to have a small occipital stroke. Her visual loss is in the center of thefield. She has no symptoms of chest pain.Patient has mild exertional shortness of breath. She has no symptoms ofweakness or numbness on the extremities arms and legs feet or face.Dizziness - NoPalpitations - NoLeg edema - NoFatigue - NoSnoring - only if she sleep supineSleep apnea - NoREVIEW OF SYSTEMS:SYSTEMIC: No fever, chills, or change in weight or appetiteHEENT: No recent change in vision or hearing.Respiratory: No hemoptysis, cough.CARDIOVASCULAR: See HPI.GI: No recent nausea, vomiting or diarrhea.: No recent hematuria or dysuria.SKIN: No recent itching or eruption.PSYCH: No recent active anxiety or depression.HEMATOLOGY/ON COLOGY: No recent diagnosis of bleeding or cancer.ENDOCRINE: No recent polyuria or heat intolerance.NEURO: No recent seizures. Visual field loss defect on the left eye ispersistent for last 1 monthRHEUMATOLOGY: No recent active connective tissue disease.Rest of the review of system is unremarkable.PAST MEDICAL HISTORYDiagnosis Date- Arthritis- Diabetes mellitus (HCC)- Elevated cholesterol- Hx of cancer of endometrium 2013- Hypertension- HypothyroidismPAST SURGICAL HISTORYProcedure Laterality Date- HYSTERECTOMY HX- RADIATION THERAPY- REMOVAL GALLBLADDERSocial HistorySubstance Use Topics- Smoking status: Never Smoker- Smokeless tobacco: Never Used- Alcohol use NoFAMILY HISTORYProblem Relation Age of Onset- No Ocular Disease Father- Heart Father- Diabetes Father- Hypertension Father- No Ocular Disease Mother- Hypertension Mother- Diabetes Mother- No Ocular Disease Sister- Diabetes Sister- No Ocular Disease Brother- No Ocular Disease Maternal Grandmother- No Ocular Disease Maternal Grandfather- No Ocular Disease Paternal Grandmother- No Ocular Disease Paternal GrandfatherALLERGIESAlle rgen Reactions- Seasonal Allergies Other: See Comments Sinus issuesCURRENT MEDICATIONS:quinapril (ACCUPRIL) 20 mg tablet Take 20 mg by mouth once daily.amLODIPine-Atorvas tatin 10-10 mg per tabletlevothyroxine (SYNTHROID) 100 mcg tabletPioglitazone-metFO RMIN 15-500 mg per tabletacetaminophen (TYLENOL) 325 mg tablet Take 650 mg by mouth every 6 hours asneeded.Quinapril-Shunk chlorothiazide 20-12.5 mg per tabletPHYSICAL EXAM:BP 136/54 Pulse 81 Ht 5' 1 (1.55m) Wt 262 lb 8 oz (119.1kg) BMI 49.62kg/(m2).Last 2 Encounter Wt Readings: Date: Wt: 05/20/2018 119.1 kg (262 lb 8 oz)Awake, alert, oriented times 3.Patient is not in acute respiratory distress.SKIN: No petechial rash or ecchymosis noted.Head : Normocephalic. face symmetricalNECK: Supple. No JVD. Mild carotid bruit. No thyromegaly.ENT: Pharyngeal structures are not crowded and uvula is visualized. [id number]: Clear to auscultation bilaterally.CARDIAC: Normal S1 and S2, left sternal border systolic murmur.ABDOMEN: Soft, nontender, bowel sounds present.EXTREMITIES: No cyanosis, clubbing, edema.PULSES: Peripheral pulses palpable.NEURO: Non-focal. Moves all extremities. She has visual field defect on theleft eyeMusculoskeletal: No significant deformities.Last Labs:CMP:No results found for: NA, K, CHLOR, CO2, GLUC, BUN, CREAT, CA, ALB, TPROT, AST,ALT, ALKPHOS, TBILI, ANIONNo results found for: TG, CHOL, HDL, LDL, INREKG today shows sinus rhythm with frequent premature atrial contractions andsinus arrhythmia. Poor R-wave progression is also notedIMPRESSION / RECOMMENDATIONS / PLAN:Encounter Diagnosis ICD-10-CM1. Cerebrovascular accident (CVA), unspecified mechanism (HCC) I63.9 ECGCOMPLETE W INTERPRETATION ECHO TRANSESOPHAGEAL CBC TSH BLD MAGNESIUM BLD COMP METABOLIC PANEL HOLTER MONITOR 48 HOUR US CAROTID BILAT2. Visual field defect H53.40 ECHO TRANSESOPHAGEAL HOLTER MONITOR 48 HOUR US CAROTID BILAT3. Essential hypertension I104. 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retinopa thy without macular edema, without long-term current use of insulin(HCC) E11.64994. Obesity (BMI 35.0-39.9 without comorbidity) E66.9For the workup of stroke I will schedule her for a transesophagealechocardi ography, carotid artery Doppler examination, as well as a 24-48 hourHolter monitor to screen for atrial fibrillation.I will start her on aspirin 81 mg daily. If an arrhythmia like atrial fibrelation is found on Holter monitor she would have to be on anticoagulationalso.I will do her lab investigation including thyroid-stimulating hormone.If arrhythmia is noted to be more frequent at night and sleep study with apneaventilation would need to be doneLifestyle Recommendation/Counselin gFollow a heart healthy diet such as the AHA or DASH dietary pattern which ishigh in vegetables, fruits, low-fat dairy products, whole grains, poultry, fish,and nuts and is low in sweets, sugar-sweetened beverages, and red meats. TheDASH dietary pattern is low in saturated fat, total fat, and cholesterol. It isrich in potassium, magnesium, and calcium, as well as protein and fiber.?Adhering to a heart-healthy diet, regular exercise habits, avoidance of tobaccoproducts, and maintenance of a healthy weight are crucial components of theirheart disease risk reduction.Patient is counseled and educated about the symptoms and treatment plan.Yasmeen López MD FACCCC: Girish Simon MD[address] [place], [place] [address]Cphaf: [phone]: [phone] Normal [facility] Pathology ([facility])on 10-01-2017 Pathology ([facility]) FINAL GYNECOLOGIC CYTOLOGY ROALSABM-[id number] ADEQUACYSatisfactory for Evaluation. Endocervical cells/transformation zone componentpresent.GENERAL CATEGORIZATIONNegative for Intraepithelial Lesion or MalignancyCLINICAL HISTORYHysterectomySPECI MEN(A) SCREENING CERVICAL/ENDOCERVICAL LIQUID-BASED PAPPerformed at [facility], [address] [place] [id number] by: Signed Out by: PRADEEP MEDINA Foster Care Social Worker Reported: 10/11/2017 Normal [facility] Healthcare Comment on above: Performed By: #### G YN ####[facility] [address] [place] [address] Glucose, POCon 06-16-2017 Glucose mass conc 135 mg/dL High 80-115 [facility] Comment on above: Performed By: #### G LUX ####Unless otherwise noted, all testing performed by [place] [address] [address] [place], [place] [phone]: [id number] Director: Aneudy Damian M.D. No Panel Information Nasal Screen MRSA/MSSA [facility] Work Phone: [facility] Vital Signs Date Time Vital Sign Value Performing Clinician Facility 05-16-2025 07:43-0400 Body height 151.99 cm Donal Castle MD Work Phone: [facility] 05-16-2025 07:43-0400 Body mass index (BMI) [Ratio] 41.4 kg/m2 Donal Castle MD Work Phone: [facility] 05-16-2025 07:43-0400 Body weight 95.7 kg Donal Castle MD Work Phone: [facility] 05-16-2025 07:43-0400 Diastolic blood pressure 68 mm[Hg] Donal Castle MD Work Phone: [facility] 05-16-2025 07:43-0400 Heart rate 70 /min Donal Castle MD Work Phone: [facility] 05-16-2025 07:43-0400 Respiratory rate 18 /min Donal Castle MD Work Phone: [facility] 05-16-2025 07:43-0400 SaO2% (BldA) [Mass fraction] 90 % Donal Castle MD Work Phone: [facility] 05-16-2025 07:43-0400 Systolic blood pressure 109 mm[Hg] Donal Castle MD Work Phone: [facility] 04-04-2025 06:50-0400 Body height 151.99 cm Donal Castle MD Work Phone: [facility] 04-04-2025 06:50-0400 Body mass index (BMI) [Ratio] 46.7 kg/m2 Donal Castle MD Work Phone: [facility] 04-04-2025 06:50-0400 Body weight 107.95 kg Donal Castle MD Work Phone: [facility] 04-04-2025 06:50-0400 Diastolic blood pressure 69 mm[Hg] Donal Castle MD Work Phone: [facility] 04-04-2025 06:50-0400 Heart rate 74 /min Donal Castle MD Work Phone: [phone] [address] 04-04-2025 06:50-0400 Inhaled oxygen flow rate 1 L/min Donal Castle MD Work Phone: [phone] [place] [address] 04-04-2025 06:50-0400 Respiratory rate 18 /min Donal Castle MD Work Phone: [facility] 04-04-2025 06:50-0400 SaO2% (BldA) [Mass fraction] 96 % Donal Castle MD Work Phone: [facility] 04-04-2025 06:50-0400 Systolic blood pressure 121 mm[Hg] Donal Castle MD Work Phone: [facility] 03-23-2025 11:00-0400 Body mass index (BMI) [Ratio] 49.2 kg/m2 Donal Castle MD Work Phone: [facility] 03-23-2025 11:00-0400 Body temperature 97.2 [degF] Donal Castle MD Work Phone: [phone] [place] [address] 03-23-2025 11:00-0400 Body weight 113.7 kg Donal Castle MD Work Phone: [facility] 03-23-2025 11:00-0400 Diastolic blood pressure 72 mm[Hg] Donal Castle MD Work Phone: [facility] 03-23-2025 11:00-0400 Heart rate 61 /min Donal Castle MD Work Phone: [facility] 03-23-2025 11:00-0400 Inhaled oxygen flow rate 2 L/min Donal Castle MD Work Phone: [facility] 03-23-2025 11:00-0400 Respiratory rate 16 /min Donal Castle MD Work Phone: [facility] 03-23-2025 11:00-0400 SaO2% (BldA) [Mass fraction] 97 % Donal Castle MD Work Phone: [facility] 03-23-2025 11:00-0400 Systolic blood pressure 131 mm[Hg] Donal Castle MD Work Phone: [facility] 03-22-2025 15:24-0400 Body height 151.99 cm Donal Castle MD Work Phone: [facility] 03-13-2025 18:48-0400 Body temperature 97.8 [degF] Donal Castle MD Work Phone: [facility] 03-13-2025 18:48-0400 Diastolic blood pressure 75 mm[Hg] Donal Castle MD Work Phone: [facility] 03-13-2025 18:48-0400 Heart rate 66 /min Donal Castle MD Work Phone: [facility] 03-13-2025 18:48-0400 Respiratory rate 23 /min Donal Castle MD Work Phone: [facility] 03-13-2025 18:48-0400 SaO2% (BldA) [Mass fraction] 95 % Donal Castle MD Work Phone: [facility] 03-13-2025 18:48-0400 Systolic blood pressure 143 mm[Hg] Donal Castle MD Work Phone: [facility] 03-13-2025 18:20-0400 Inhaled oxygen flow rate 2 L/min Donal Castle MD Work Phone: [facility] 03-13-2025 15:47-0400 Body mass index (BMI) [Ratio] 51 kg/m2 Donal Castle MD Work Phone: [facility] 03-13-2025 15:47-0400 Body weight 118.47 kg Donal Castle MD Work Phone: [facility] 03-13-2025 13:58-0400 Body height 152.4 cm Donal Castle MD Work Phone: [facility] 03-12-2025 09:01-0400 Body mass index (BMI) [Ratio] 49.6 kg/m2 Donal Castle MD Work Phone: [facility] 03-12-2025 09:01-0400 Body weight 115.21 kg Donal Castle MD Work Phone: [facility] 03-12-2025 09:01-0400 Diastolic blood pressure 74 mm[Hg] Donal Castle MD Work Phone: [facility] 03-12-2025 09:01-0400 Heart rate 82 /min Donal Castle MD Work Phone: [facility] 03-12-2025 09:01-0400 Respiratory rate 22 /min Donal Castle MD Work Phone: [facility] 03-12-2025 09:01-0400 SaO2% (BldA) [Mass fraction] 90 % Donal Castle MD Work Phone: [facility] 03-12-2025 09:01-0400 Systolic blood pressure 118 mm[Hg] Donal Castle MD Work Phone: [facility] 12-01-2024 10:33-0500 Body height 152.4 cm Donal Castle MD Work Phone: [facility] 12-01-2024 10:33-0500 Body mass index (BMI) [Ratio] 46.3 kg/m2 Donal Castle MD Work Phone: [facility] 12-01-2024 10:33-0500 Body weight 107.5 kg Donal Castle MD Work Phone: [facility] 12-01-2024 10:33-0500 Diastolic blood pressure 73 mm[Hg] Donal Castle MD Work Phone: [facility] 12-01-2024 10:33-0500 Heart rate 89 /min Donal Castle MD Work Phone: [facility] 12-01-2024 10:33-0500 Respiratory rate 18 /min Donal Castle MD Work Phone: [facility] 12-01-2024 10:33-0500 SaO2% (BldA) [Mass fraction] 97 % Donal Castle MD Work Phone: [facility] 12-01-2024 10:33-0500 Systolic blood pressure 113 mm[Hg] Donal Castle MD Work Phone: [facility] 11-02-2024 12:21-0500 SaO2% (BldA) [Mass fraction] 86 % Donal Castle MD Work Phone: [facility] 11-02-2024 09:00-0500 Body temperature 98 [degF] Donal Castle MD Work Phone: [facility] 11-02-2024 09:00-0500 Diastolic blood pressure 53 mm[Hg] Donal Castle MD Work Phone: [facility] 11-02-2024 09:00-0500 Heart rate 64 /min Donal Castle MD Work Phone: [facility] 11-02-2024 09:00-0500 Inhaled oxygen flow rate 2 L/min Donal Castle MD Work Phone: [facility] 11-02-2024 09:00-0500 Respiratory rate 12 /min Donal Castle MD Work Phone: [facility] 11-02-2024 09:00-0500 Systolic blood pressure 139 mm[Hg] Donal Castle MD Work Phone: [facility] 11-02-2024 04:36-0500 Body mass index (BMI) [Ratio] 47.4 kg/m2 Donal Castle MD Work Phone: [facility] 11-02-2024 04:36-0500 Body weight 110.1 kg Donal Castle MD Work Phone: [facility] 10-21-2024 14:06-0500 Body temperature 98.1 [degF] Donal Castle MD Work Phone: [facility] 10-21-2024 14:06-0500 Diastolic blood pressure 55 mm[Hg] Donal Castle MD Work Phone: [facility] 10-21-2024 14:06-0500 Heart rate 65 /min Donal Castle MD Work Phone: [facility] 10-21-2024 14:06-0500 Respiratory rate 18 /min Donal Castle MD Work Phone: [facility] 10-21-2024 14:06-0500 SaO2% (BldA) [Mass fraction] 97 % Donal Castle MD Work Phone: [facility] 10-21-2024 14:06-0500 Systolic blood pressure 137 mm[Hg] Donal Castle MD Work Phone: [facility] 10-21-2024 10:00-0500 Inhaled oxygen flow rate 2 L/min Donal Castle MD Work Phone: [facility] 10-21-2024 03:53-0500 Body mass index (BMI) [Ratio] 50.3 kg/m2 Donal Castle MD Work Phone: [facility] 10-21-2024 03:53-0500 Body weight 116.8 kg Donal Castle MD Work Phone: [facility] 10-19-2024 00:06-0500 Inhaled oxygen concentration 35 % Donal Castle MD Work Phone: [facility] 09-30-2023 10:25-0500 Body temperature 97.7 [degF] Ivan Baxter MD Work Phone: [facility] 09-30-2023 10:25-0500 Diastolic blood pressure 77 mm[Hg] Ivan Baxter MD Work Phone: [facility] 09-30-2023 10:25-0500 Heart rate 70 /min Ivan Baxter MD Work Phone: [facility] 09-30-2023 10:25-0500 Respiratory rate 16 /min Ivan Baxter MD Work Phone: [facility] 09-30-2023 10:25-0500 SaO2% (BldA) [Mass fraction] 96 % Ivan Baxter MD Work Phone: [facility] 09-30-2023 10:25-0500 Systolic blood pressure 176 mm[Hg] Ivan Baxter MD Work Phone: [facility] 09-30-2023 08:48-0500 Body height 153 cm Ivan Baxter MD Work Phone: [facility] 09-30-2023 08:48-0500 Body mass index (BMI) [Ratio] 47.76 kg/m2 Ivan Baxter MD Work Phone: [facility] 09-30-2023 08:48-0500 Body weight 111.8 kg Ivan Baxter MD Work Phone: [facility] 09-27-2023 15:38-0500 Diastolic blood pressure 72 mm[Hg] Ivan Baxter MD Work Phone: [facility] 09-27-2023 15:38-0500 Heart rate 72 /min Ivan Baxter MD Work Phone: [facility] 09-27-2023 15:38-0500 Systolic blood pressure 187 mm[Hg] Ivan Baxter MD Work Phone: [facility] 08-26-2023 13:14-0400 Body temperature 97.3 [degF] Ivan Baxter MD Work Phone: [facility] 08-26-2023 13:14-0400 Diastolic blood pressure 86 mm[Hg] Ivan Baxter MD Work Phone: [facility] 08-26-2023 13:14-0400 Heart rate 68 /min Ivan Baxter MD Work Phone: [facility] 08-26-2023 13:14-0400 Respiratory rate 20 /min Ivan Baxter MD Work Phone: [facility] 08-26-2023 13:14-0400 SaO2% (BldA) [Mass fraction] 94 % Ivan Baxter MD Work Phone: [facility] 08-26-2023 13:14-0400 Systolic blood pressure 171 mm[Hg] Ivan Baxter MD Work Phone: [facility] 08-26-2023 10:55-0400 Body height 153 cm Ivan Baxter MD Work Phone: [facility] 08-26-2023 10:55-0400 Body mass index (BMI) [Ratio] 46.99 kg/m2 Ivan Baxter MD Work Phone: [facility] 08-26-2023 10:55-0400 Body weight 110 kg Ivan Baxter MD Work Phone: [facility] 08-04-2023 13:23-0400 Diastolic blood pressure 72 mm[Hg] Ivan Baxter MD Work Phone: [facility] 08-04-2023 13:23-0400 Heart rate 72 /min Ivan Baxter MD Work Phone: [facility] 08-04-2023 13:23-0400 Systolic blood pressure 187 mm[Hg] Ivan Baxter MD Work Phone: [facility] 11-20-2022 12:57-0500 Body temperature 98 [degF] Dr. Girish Simon Work Phone: [facility] Work Phone: 11-20-2022 12:57-0500 Diastolic blood pressure 50 mm[Hg] Dr. Girish Simon Work Phone: [facility] Work Phone: 11-20-2022 12:57-0500 Heart rate 74 /min Dr. Girish Simon Work Phone: [facility] Work Phone: 11-20-2022 12:57-0500 Respiratory rate 16 /min Dr. Girish Simon Work Phone: [facility] Work Phone: 11-20-2022 12:57-0500 SaO2% (BldA) [Mass fraction] 97 % Dr. Girish Simon Work Phone: [facility] Work Phone: 11-20-2022 12:57-0500 Systolic blood pressure 128 mm[Hg] Dr. Girish Simon Work Phone: [facility] Work Phone: 11-19-2022 20:02-0500 Body height 154.[address] Girish Simon Work Phone: [facility] Work Phone: 11-19-2022 20:02-0500 Body mass index (BMI) [Ratio] 45.5 kg/m2 Dr. Girish Simon Work Phone: [facility] Work Phone: 11-19-2022 20:02-0500 Body weight 109.[address] Girish Simon Work Phone: [facility] Work Phone: 11-19-2022 16:42-0500 Inhaled oxygen flow rate 4 L/min Dr. Girish Simon Work Phone: [facility] Work Phone: 08-31-2022 14:31-0400 Body mass index (BMI) [Ratio] 44.9 kg/m2 Dr. Girish Simon Work Phone: [facility] Work Phone: 08-31-2022 14:31-0400 Body weight 107.[address] Girish Simon Work Phone: 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 Start: 05-21-2025 End: 05-21-[address] Donal Castle MD -[facility] Work Phone: Start: 05-21-2025 End: 05-21-2025 ambulatory Donal Castle Facility:[facility] Start: 05-16-2025 End: 05-16-2025 Patient encounter procedure Onofre BOATENG -[facility] Work Phone: Start: 05-16-2025 End: 05-16-2025 ambulatory Donal Castle MD Work Phone: -[facility] Start: 05-16-2025 End: 05-16-2025 ambulatory Onofre Claros Facility:[facility] Start: 04-04-2025 End: 04-04-2025 Patient encounter procedure Onofre BOATENG -[facility] Work Phone: Start: 04-04-2025 End: 04-04-2025 ambulatory Donal Castle MD Work Phone: [facility] Work Phone: Start: 03-23-2025 Non-patient / Non-visit [facility] Fitz Giles [facility] Work Phone: Start: 03-22-2025 Non-patient / Non-visit Dr[facility] Fitz Giles [facility] Work Phone: Start: 03-21-2025 Non-patient / Non-visit Dr. Fitz Giles [facility] Work Phone: Start: 03-20-2025 Non-patient / Non-visit Dr. Aparna mckenzie MD -[facility] Work Phone: Start: 03-19-2025 Non-patient / Non-visit Dr. Fitz Giles [facility] Work Phone: Start: 03-18-2025 Non-patient / Non-visit Dr. Perdomo [facility] Work Phone: Start: 03-17-2025 Non-patient / Non-visit Dr. Perdomo [facility] Work Phone: Start: 03-17-2025 Non-patient / Non-visit Dr. Josemanuel SANTIAGO -[facility] Start: 03-16-2025 ambulatory Lucas Coronado Facility :[facility] Start: 03-16-2025 Non-patient / Non-visit Dr. Fitz owen MD -[facility] Start: 03-16-2025 Non-patient / Non-visit Dr. Joao Francois MD -[facility] Start: 03-16-2025 Non-patient / Non-visit Dr. Perdomo [facility] Work Phone: Start: 03-15-2025 Non-patient / Non-visit Dr. Jaoo Francois MD -[facility] Start: 03-14-2025 Non-patient / Non-visit Dr. Perdomo -[facility] Work Phone: Start: 03-14-2025 Non-patient / Non-visit Dr. Siobhan SANTIAGO -[facility] Start: 03-13-2025 Non-patient / Non-visit Dr. Luiza Muñoz MD -[facility] Work Phone: Start: 03-13-2025 ambulatory Milton Muñoz Fac ility:[facility] Start: 03-13-2025 End: 03-23-2025 Evaluation and management of inpatient Dr. Milton Muñoz MD -Progressive Care Unit Work Phone: Start: 03-12-2025 End: 03-12-2025 Patient encounter procedure Onofre Claros PA -Laboratory Work Phone: Start: 03-12-2025 End: 03-12-2025 Patient encounter procedure Onofre Claros [place] -[facility] Work Phone: Start: 03-12-2025 End: 03-12-2025 ambulatory Onofre Claros Facility[facility] Start: 03-12-2025 End: 03-12-2025 ambulatory Onofre Claros Facility: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 Work Phone: Start: 01-11-2025 End: 01-11-[address] Donal Castle MD -Laboratory, [facility] Start: 01-11-2025 End: 01-11-2025 ambulatory Donal Castle Facility:[facility] Start: 12-12-2024 ambulatory Ramone Adams Facility:[facility] Start: 12-12-2024 Non-patient / Non-visit Dr. Siobhan SANTIAGO -[facility] Start: 12-12-2024 End: 12-12-[address] Joao Ramirez MD -Cardiovascular Services Work Phone: Start: 12-12-2024 End: 12-12-2024 ambulatory Joao Ramirez Facility:[facility] Start: 12-08-2024 End: 12-08-[address] Joao Ramirez MD -Laboratory Work Phone: Start: 12-08-2024 End: 12-08-2024 ambulatory Joao Ramirez Facility:[facility] Start: 12-01-2024 End: 12-01-[address] Joao Ramirez MD -Laboratory Work Phone: Start: 12-01-2024 End: 12-01-[address] 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 Donal Castle MD -Laboratory, [facility] Work Phone: Start: 11-10-2024 End: 11-10-2024 ambulatory Donal Castle Facility:[facility] Start: 11-06-2024 End: 11-06-[address] Seth Garnica DO -Laboratory, [facility] Work Phone: Start: 11-06-2024 End: 11-06-2024 ambulatory Donal [facility] Facility:[facility] Start: 11-02-2024 Non-patient / Non-visit Dr. Perdomo [facility] Work Phone: Start: 11-01-2024 Non-patient / [facility] Work Phone: Start: 10-31-2024 Non-patient / Non-visit Dr. Perdomo [facility] Work Phone: Start: 10-30-2024 ambulatory [facility] Facility:[facility] Start: 10-30-2024 End: 11-02-2024 Evaluation and management of inpatient [facility]: Start: 10-21-2024 Non-patient / Non-[facility] Work Phone: Start: 10-20-2024 Non-patient / Non-visit Dr. Girish priest MD [facility] Work Phone: Start: 10-19-2024 Non-patient / Non-visit Dr. Dennise Ramirez MD [facility] Start: 10-18-2024 Non-patient / Non-visit Dr. Mark holguin DO -[facility] Start: 10-18-2024 ambulatory Bandar Palencia cility:[facility] Start: 10-18-2024 Non-patient / Non-visit Dr. Lyudmila Linares MD [facility] Start: 10-18-2024 Non-patient / Non-visit Dr. Dennise Ramirez MD [facility] Start: 10-18-2024 ambulatory Girish Lopez ty:[facility] Start: 10-18-2024 End: 10-21-2024 Evaluation and management of inpatient [facility]. [facility] Work [facility]: Start: 10-13-2024 End: 10-13-[address] Kenan White MD -Laboratory, [facility] Work Phone: Start: 10-13-2024 End: 10-13-2024 ambulatory Donal Castle Facility: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, without long-term current use of insulin (HCC) (Primary Dx) Start: 09-06-2024 End: 09-06-2024 ambulatory SARAH REILLY II Facility:[facility] Start: 09-06-2024 End: 09-06-2024 Patient encounter procedure Sarah Reilly OD Work Phone: Optometry Comment on above: Tributary (branch) r etinal vein occlusion, right eye, with macular edema (Primary Dx); Central retinal artery occlusion, left eye; Operculated retinal tear of left eye; 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, without long-term current use of insulin (HCC); Ocular hypertension of left eye; Regular astigmatism of both eyes; Presbyopia Start: 08-24-2024 End: 08-24-2024 ambulatory YEN GAMBOA Facility:[facility] Start: 08-24-2024 End: 08-24-2024 Patient encounter procedure Yen Gamboa MD Work Phone: Ophthalmology Comment on above: 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, without long-term current use of insulin (HCC) Start: 07-20-2024 End: 07-20-2024 ambulatory SERGO CHIRINOS Facility:[facility] Start: 07-20-2024 End: 07-20-2024 Office outpatient visit 25 minutes Sergo Chiirnos MD, PhD Work Phone: Ophthalmology Comment on above: 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 Start: 12-31-2023 End: 12-31-[address] [facility] Work Phone: Start: 12-31-2023 End: 12-31-2023 Patient encounter procedure [facility] Start: 12-22-2023 End: 12-22-2023 Patient encounter procedure Sarah Dangelo Giovanny OD Work Phone: Optometry Comment on above: Status post cataract extraction and insertion of intraocular lens of right eye (Primary Dx); Status post cataract extraction and insertion of intraocular lens of left eye Start: 10-13-2023 End: 10-13-2023 Patient encounter procedure Sarah Dangelo Giovanny OD Work Phone: Optometry Comment on above: Status post cataract extraction and insertion of intraocular lens of right eye (Primary Dx); Status post cataract extraction and insertion of intraocular lens of left eye Start: 10-01-2023 End: 10-01-2023 Patient encounter procedure Ivan Baxter MD Work Phone: Ophthalmology Comment on above: Status post cataract extraction and insertion of intraocular lens of left eye (Primary Dx); Status post cataract extraction and insertion of intraocular lens of right eye; 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 without macular edema, without long-term current use of insulin (HCC); Central retinal artery occlusion, left eye; Operculated retinal tear of left eye Start: 09-30-2023 End: 09-30-2023 Subsequent hospital visit by physician Ivan Baxter MD Work Phone: [facility] [place] Start: 09-27-2023 End: 09-27-2023 Patient encounter procedure Ivan Baxter MD Work Phone: Ophthalmology Comment on above: 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, right eye (Primary Dx); 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 without macular edema, without long-term current use of insulin (HCC); Status post cataract extraction and insertion of intraocular lens of left eye; Central retinal artery occlusion, left eye; Operculated retinal tear of left eye; Essential hypertension; Hypercholesterolemia Start: 09-02-2023 End: 09-02-2023 Patient encounter procedure Sarah Reilly OD Work Phone: Optometry Comment on above: Status post cataract extraction and insertion of intraocular lens of left eye (Primary Dx) Start: 08-27-2023 End: 08-27-2023 Patient encounter procedure Ivan Baxter MD Work Phone: Ophthalmology Comment on above: Combined forms of ag e-related cataract of right eye (Primary Dx); Status post cataract extraction and insertion of intraocular lens of left eye Start: 08-26-2023 End: 08-26-2023 ambulatory IVANJOVANA BAXTER [facility] Start: 08-26-2023 End: 08-26-2023 Subsequent hospital visit by physician Ivan Baxter MD Work Phone: [facility] [place] Comment on above: Combined forms of ag e-related cataract of left eye (Primary Dx) Start: 08-19-2023 Refill Ivan hooks MD Work Phone: Ophthalmology Comment on above: Refill Request Start: 08-09-[address] Girish Simon Facility:[id number] Start: 08-04-2023 End: 08-04-2023 Patient encounter procedure Ivan Baxter MD Work Phone: Ophthalmology Comment on above: Combined forms of ag e-related cataract of left eye (Primary Dx); Combined forms of age-related cataract of right eye; 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 without macular edema, without long-term current use of insulin (HCC); Central retinal artery occlusion, left eye; Operculated retinal tear of left eye; Ocular hypertension of left eye; Essential hypertension Start: 07-20-[address] Girish Simon Facility:[id number] Start: 05-05-2023 End: 05-05-2023 Patient encounter procedure Sarah Reilly OD Work Phone: Optometry Comment on above: Ocular hypertension of left eye (Primary Dx) Start: 02-15-2023 Patient encounter procedure Girish Simon Work Phone: [facility] Work Phone: Start: 02-15-[address] Girish Simno Facility:[id number] Start: 02-12-[address] Girish Simon Facility:[id number] Start: 02-08-2023 Patient encounter procedure Girish Simon Work Phone: [facility] Work Phone: Start: 02-08-[address] Girish Simon Facility:[id number] Start: 02-05-[address] Girish Simon Facility:[id number] Start: 02-05-2023 PTFUADULT4, Provider : Giselle Guzman, Status: Pen, Time: 2:45 PM Girish Simon Work Phone: [facility] Work Phone: Start: 02-03-[address] Girish Simon Facility:[id number] Start: 02-03-2023 Patient encounter procedure Girish Simon Work Phone: [facility] Work Phone: Start: 01-29-2023 Patient encounter procedure Girish Simon Work Phone: [facility] Work Phone: Start: 01-29-2023 ambulatory Ms. Carey Ramsey babak Radha Facility:[id number] Start: 01-15-[address] Girish Simon Facility:[id number] Start: 01-15-2023 Patient encounter procedure Girish Simon Work Phone: [facility] Work Phone: Start: 01-11-2023 Patient encounter procedure Girish Simon Work Phone: [facility] Work Phone: Start: 01-11-[address] Girish Simon Facility:[id number] Start: 01-08-2023 Patient encounter procedure Girish Simon Work Phone: [facility] Work Phone: Start: 01-08-[address] Girish Simon Facility:[id number] Start: 01-05-2023 ambulatory GIRISH SIMON [facility] Start: 01-04-2023 ambulatory Ms. Carey Ramsey babak Garcia Facility:[id number] Start: 01-04-2023 Patient encounter procedure Girish Simon Work Phone: [facility] Work Phone: Start: 01-01-2023 Patient encounter procedure Girish Simon Work Phone: [facility] Work Phone: Start: 01-01-2023 ambulatory Ms. Carey Ramsey babak Radha Facility:[id number] Start: 12-28-2022 ambulatory Ms. Carey Ramsey babak Garcia Facility:[id number] Start: 12-25-2022 Patient encounter procedure Girish Simon Work Phone: [facility] Work Phone: Start: 12-25-2022 PTFUADULT4, Provider : Giselle Guzman, Status: Pen, Time: 1:15 PM Girish Simon Work Phone: [facility] Work Phone: Start: 12-25-2022 ambulatory Ms. Carey Small Facility:[id number] Start: 12-23-2022 ambulatory Ms. Carey Small Facility:[id number] Start: 12-23-2022 End: 12-23-2022 Patient encounter procedure Sarah Reilly OD Work Phone: Optometry Comment on above: Regular astigmatism of both eyes (Primary Dx); Presbyopia; Operculated retinal tear of left eye; Central retinal artery occlusion, left eye; Ocular hypertension of left eye; Combined form of senile cataract of both eyes; Type 2 diabetes mellitus without retinopathy (HCC) Start: 12-18-2022 Patient encounter procedure Girish Simon Work Phone: [facility] Work Phone: Start: 12-18-[address] Girish Simon Facility:[id number] Start: 12-14-2022 Patient encounter procedure Girish Simon Work Phone: [facility] Work Phone: Start: 12-14-[address] Girish Simon Facility:[id number] Start: 12-11-[address] Girish Simon Facility:[id number] Start: 12-11-2022 Patient encounter procedure Girish Simon Work Phone: [facility] Work Phone: Start: 12-07-2022 Patient encounter procedure Girish Simon Work Phone: [facility] Work Phone: Start: 12-07-[address] Girish Simon Facility:[id number] Start: 12-04-2022 Patient encounter procedure Girish Simon Work Phone: [facility] Work Phone: Start: 12-04-[address] Girish Simon Facility:[id number] Start: 12-03-2022 End: 12-03-2022 Patient encounter procedure Sergo Chirinos MD, PhD Work Phone: Ophthalmology Comment on above: Central retinal ashley ry occlusion, left eye Start: 11-30-[address] Girish Simon Facility:[id number] Start: 11-27-2022 Patient encounter procedure Girish Simon Work Phone: [facility] Work Phone: Start: 11-27-[address] Girish Simon Facility:[id number] Start: 11-23-[address] Girish Simon Facility:[id number] Start: 11-19-2022 Non-patient / Non-visit Dr. Butcher Work Phone: [facility] Start: 11-19-2022 End: 11-20-2022 Evaluation and management of inpatient Dr. Girish Simon Work Phone: [facility]-Medical Surgical 3 Start: 11-19-2022 End: 11-20-[address] Girish Simon Work Phone: [facility] Work Phone: Start: 11-13-2022 Non-patient / Non-visit Dr. Butcher Work Phone: [facility] Start: 11-13-[address] Girish Simon Work Phone: [facility]Cardi[facility] Services Start: 11-10-2022 End: 11-10-[address] Girish Simon Work Phone: [facility] Work Phone: Start: 11-10-2022 End: 11-10-[address] Girish Simon Work Phone: [facility] Start: 10-01-2022 End: 10-01-2022 Patient encounter procedure Sergo Chirinos MD, PhD Work Phone: Ophthalmology Comment on above: Central retinal ashley ry occlusion, left eye (Primary Dx); Operculated retinal tear of left eye Start: 09-08-2022 End: 09-08-2022 Patient encounter procedure Sarah Reilly OD Work Phone: Optometry Comment on above: Type 2 diabetes lee ann itus without retinopathy (HCC) (Primary Dx); Ocular hypertension of left eye; Combined forms of age-related cataract of both eyes; Central retinal artery occlusion, left eye; Operculated retinal tear of left eye; Regular astigmatism of both eyes; Presbyopia Start: 08-31-2022 End: 08-31-[address] Girish Simon Work Phone: [facility] Start: 08-24-[address] Girish Simon Facility:[id number] Start: 08-24-2022 Patient encounter procedure Girish Simon Work Phone: [facility] Work Phone: Start: 08-21-2022 Patient encounter procedure Girish Simon Work Phone: [facility] Work Phone: Start: 08-21-[address] Girish Simon Facility:[id number] Start: 08-17-[address] Girish Simon Facility:[id number] Start: 08-14-2022 Patient encounter procedure Girish Simon Work Phone: [facility] Work Phone: Start: 08-07-2022 Patient encounter procedure Girish Simon Work Phone: [facility] Work Phone: Start: 08-03-2022 Patient encounter procedure Girish Simon Work Phone: [facility] [place] Work Phone: Start: 07-31-2022 Patient encounter procedure Girish Simon Work Phone: [facility] [place] Work Phone: Start: 07-31-2022 [email or web address], Provider : Giselle Guzman, Status: Pen, Time: 10:00 AM Girish Simon Work Phone: [facility] [place] Work Phone: Start: 07-29-2022 Patient encounter procedure Girish Simon Work Phone: [facility] Work Phone: Start: 05-05-2022 End: 05-05-2022 Patient encounter procedure Sarah Reilly OD Work Phone: Optometry Comment on above: Ocular hypertension of left eye (Primary Dx) Start: 03-10-2019 End: 03-11-2019 Patient encounter procedure Girish Simon Facility:[facility] Start: 11-23-2018 End: 11-24-2018 Patient encounter procedure [facility] Start: 06-24-2018 Patient encounter procedure [facility] Start: 06-02-2018 End: 06-02-2018 Patient encounter procedure [facility] Start: 06-02-2018 Patient encounter procedure [facility] Start: 05-24-2018 End: 05-25-2018 Patient encounter procedure [facility] Facility:[facility] Start: 06-16-2017 End: 06-16-2017 Ambulatory Pete Funez Facility:[facility] Girish Simon Work Phone: [facility] Work Phone: Comment on above: ONSET AGE 12; Patient encounter procedure Girish Simon Work Phone: [facility] Work Phone: Procedures Date Procedure Procedure Detail Performing Clinician Start: 05-31-2025 Intravitreal njx pharmacologic agt spx Sergo Chirinos MD, PhD Work Phone: Start: 05-31-2025 Computerized ophthal irene imaging retina Sergo Chirinos MD, PhD Work Phone: Start: 05-21-2025 Clostridium difficil e detection Donal Castle MD Work Phone: Start: 05-21-2025 Nucleic acid assay Alka Castle MD Work Phone: Start: 05-16-2025 Parathyroid hormone measurement Donal Castle MD Work Phone: Start: 03-23-2025 Estimated creatinine clearance Donal Castle MD Work Phone: Start: 03-20-2025 Kidney biopsy Donal mays MD Work Phone: Start: 03-19-2025 Anaerobic microbial culture Donal Castle MD Work Phone: Start: 03-19-2025 Fungus stain method Shadia Castle MD Work Phone: Start: 03-19-2025 Gram stain microscopy Carlos Castle MD Work Phone: Start: 03-19-2025 End: 03-19-2025 Microbial culture, routine Donal Chinchilla Work Phone: Start: 03-19-2025 Mycology culture Donal Castle MD Work Phone: Start: 03-19-2025 Amputation of toe Aleksandr Castle MD Work Phone: Start: 03-16-2025 Gram stain microscopy Carlos Castle MD Work Phone: Start: 0 End: 03-16-2025 Microbial culture, routine Donal Chinchilla Work Phone: Start: 03-16-2025 Plain chest X-ray Aleksandr Castle MD Work Phone: Start: 03-16-2025 X-ray of foot, three or more views Donal Castle MD Work Phone: Start: 03-16-2025 Fluoroscopic guidance C aquilino Castle MD Work Phone: Start: 03-16-2025 Insertion of hemodia lysis catheter Donal Castle MD Work Phone: Start: 03-16-2025 Bacterial nucleic ac id assay Donal Castle MD Work Phone: Start: 03-15-2025 Antibody measurement Ch yoselyn Castle MD Work Phone: Comment on above: The atypical pANCA p attern has been observed in asignificant percentage of patients with ulcerative colitis,primary sclerosing cholangitis and autoimmune hepatitis. Start: 03-15-2025 C>3< complement assay C aquilino Castle MD Work Phone: Start: 03-14-2025 Urine culture Donal mays MD Work Phone: Start: 03-14-2025 Complete ultrasound of kidneys and bladder Donal Castle MD Work Phone: Start: 03-13-2025 Osmolality measureme nt, serum Donal Castle MD Work Phone: Start: 03-13-2025 Chloride measurement, urine Donal Castle MD Work Phone: Start: 03-13-2025 Urea nitrogen measur ement, urine Donal Castle MD Work Phone: Start: 03-13-2025 Urnls dip stick/tabl et reagent auto microscopy Donal Castle MD Work Phone: Start: 03-13-2025 X-ray of chest, PA a nd lateral views Donal Castle MD Work Phone: Start: 03-13-2025 Serum inorganic phos phate measurement Donal Castle MD Work Phone: Start: 02-15-2025 Intravitreal njx pharmacologic agt spx Sergo Chirinos MD, PhD Work Phone: Start: 02-15-2025 OCT ANGIOGRAPHY OU ( BOTH EYES) Sergo Chirinos MD, PhD Work Phone: Start: 02-15-2025 Computerized ophthal irene imaging retina Sergo Chirinos MD, PhD Work Phone: Start: 12-08-2024 Measurement of renal function Donal Castle MD Work Phone: Comment on above: GFR Calc Start: 12-01-2024 Measurement of renal function Donal Castle MD Work Phone: Comment on above: GFR Calc Start: 11-30-2024 Intravitreal njx pharmacologic agt spx Sergo Chirinos MD, PhD Work Phone: Start: 11-30-2024 Computerized ophthal irene imaging retina Sergo Chirinos MD, PhD Work Phone: Start: 11-06-2024 Gram stain microscopy C aquilino Castle MD Work Phone: Start: 11-06-2024 Microbial culture Aleksandr Castle MD Work Phone: Start: 11-02-2024 Plain chest X-ray Aleksandr Castle MD Work Phone: Start: 10-31-2024 Plain chest X-ray Aleksandr Castle MD Work Phone: Start: 10-30-2024 CT angiography of ch est with contrast Donal Castle MD Work Phone: Start: 10-30-2024 X-ray of chest, PA a nd lateral views Donal Castle MD Work Phone: Start: 10-18-2024 Blood culture Donal mays MD Work Phone: Start: 10-18-2024 Legionella pneumophi la antigen assay Donal Castle MD Work Phone: Start: 10-18-2024 Nucleic acid assay Alka Castle MD Work Phone: Start: 10-18-2024 Streptococcus pneumo niae antigen assay Donal Castle MD Work Phone: Start: 10-18-2024 CT of chest without contrast Donal Castle MD Work Phone: Start: 10-17-2024 Plain chest X-ray Aleksandr Castle MD Work Phone: Start: 10-17-2024 SARS-CoV-2, Influenz a & RSV (PCR) Donal Castle MD Work Phone: Start: 10-13-2024 X-ray of chest, PA a nd lateral views Donal Castle MD Work Phone: Start: 10-05-2024 Intravitreal njx pharmacologic agt spx Sergo Chirinos MD, PhD Work Phone: Start: 10-05-2024 Computerized ophthal irene imaging retina Sergo Chirinos MD, PhD Work Phone: Start: 08-24-2024 Intravitreal njx pharmacologic agt spx Yen Gamboa MD Work Phone: Start: 08-24-2024 Computerized ophthal irene imaging retina Sergo Chirinos MD, PhD Work Phone: Start: 07-20-2024 Intravitreal njx pharmacologic agt spx Sergo Chirinos MD, PhD Work Phone: Start: 07-20-2024 Computerized ophthal irene imaging retina Sarah Reilly OD Work Phone: Start: 09-30-2023 Glucose quantitative blood xcpt reagent strip Ivan Baxter MD Work Phone: Start: 09-27-2023 Visual field xm uni/ bi w/interp extended exam Ivan Baxter MD Work Phone: Start: 09-02-2023 Computerized ophthal irene imaging retina Sarah Reilly OD Work Phone: Start: 08-26-2023 DISCHARGE PATIENT JAVIER MCKEON Start: 08-26-2023 PLACE IN OUTPATIENT/HOSPITAL AMBULATORY SURGERY IVAN BAXTER Start: 08-26-2023 Glucose [Mass/volume ] in Serum or Plasma IVAN BAXTER Start: 08-26-2023 Glucose quantitative blood xcpt reagent strip Ivan Baxter MD Work Phone: Start: 08-04-2023 Fundus photography w/interpretation & report Ivan Baxter MD Work Phone: Start: 08-04-2023 Computerized ophthal irene imaging retina Ivan Baxter MD Work Phone: Start: 08-04-2023 IOL BIOMETRY W/ IOL CALC OU (BOTH EYES) Ivan Baxter MD Work Phone: Start: 08-04-2023 End: 08-04-2023 Visual field xm uni/bi w/interp extended exam Ivan Baxter MD Work Phone: Start: 07-20-2023 Mammography Ivan cerda MD Work Phone: Start: 11-19-2022 Plain X-ray of hip Dr. Girish Simon Work Phone: Start: 11-19-2022 Total Hip Replacemen t Robotic Arm Assist (Right) Dr. Girish Simon Work Phone: Start: 11-10-2022 MRI of lower extremity Dr. Girish Simon Work Phone: Start: 10-01-2022 Proph rta dtchmnt w/ o drg 1/> sess Sergo Chirinos MD, PhD Work Phone: Start: 10-01-2022 Computerized ophthal irene imaging retina Sergo Chirinos MD, PhD Work Phone: Start: 09-08-2022 End: 09-08-2022 Visual field xm uni/bi w/interp extended exam Sarah Dangelo Giovanny OD Work Phone: Start: 09-05-2014 Total abdominal hysterectomy with bilateral salpingo-oophorectomy Girish Simon Work Phone: Comment on above: 09/05/2014; Cholecystectomy Girish benedict Work Phone: Comment on above: 1997; Nasal Screen MRSA/MSSA Dr. Renée Simon Work Phone: Plan of Treatment Date Care Activity Detail Author Start: 06-15-2026 End: 11-22-2026 OCT ANGIOGRAPHY OU (BOTH EYES) OCT ANGIOGRAPHY OU (BOTH EYES) [facility] Imaging Routine 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 without macular edema, without long-term current use of insulin (HCC) Expected: 06/15/2026, Expires: 11/22/2026 [facility] Comment on above: Expected: 06/15/2026, Expires: Start: 06-15-2026 End: 11-22-2026 OCT MACULA CIRRUS OU (BOTH EYES) OCT MACULA CIRRUS OU (BOTH EYES) [facility] Imaging Routine 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 without macular edema, without long-term current use of insulin (HCC) Expected: 06/15/2026, Expires: 11/22/2026 [facility] Work Phone: Comment on above: Expected: 06/15/2026, Expires: Start: 03-02-2026 End: 08-09-2026 OCT MACULA CIRRUS OU (BOTH EYES) OCT MACULA CIRRUS OU (BOTH EYES) [facility] Imaging Routine 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 without macular edema, without long-term current use of insulin (HCC) Expected: 03/02/2026, Expires: 08/09/2026 [facility] Work Phone: Comment on above: Expected: 03/02/2026, Expires: Start: 12-15-2025 End: 05-24-2026 OCT ANGIOGRAPHY OU (BOTH EYES) OCT ANGIOGRAPHY OU (BOTH EYES) [facility] Imaging Routine 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 without macular edema, without long-term current use of insulin (HCC) Expected: 12/15/2025, Expires: 05/24/2026 [facility] Comment on above: Expected: 12/15/2025, Expires: Start: 12-15-2025 End: 05-24-2026 OCT MACULA CIRRUS OU (BOTH EYES) OCT MACULA CIRRUS OU (BOTH EYES) [facility] Imaging Routine 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 without macular edema, without long-term current use of insulin (HCC) Expected: 12/15/2025, Expires: 05/24/2026 [facility] Work Phone: Comment on above: Expected: 12/15/2025, Expires: Start: 10-20-2025 End: 03-29-2026 OCT MACULA CIRRUS OU (BOTH EYES) OCT MACULA CIRRUS OU (BOTH EYES) [facility] Routine 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 without macular edema, without long-term current use of insulin ([facility]) Expected: 10/20/2025, Expires: 03/29/2026 [facility] Work Phone: Comment on above: Expected: 10/20/2025, Expires: Start: 09-20-2025 End: 09-20-2025 Patient encounter procedure 09/20/2025 2:00 PM EST Office Visit [facility] [address] [place] [id number] Sergo Chirinos MD, PhD [address] [place] [address] [facility] [address] [address] DFE/ OCT/OCTa both eyes ? avastin. Ophthalmology Comment on above: DFE/ OCT/OCTa both eyes ? avastin. Start: 09-12-2025 End: 09-12-2025 Patient encounter procedure 09/12/2025 1:00 PM EDT Office Visit [facility] Optometry [address] [place], [place] [id number] Sarah Reilly II, OD [address] [place] [address] Eye exam [employer] Opt[facility] Comment on above: Eye exam [employer] Start: 08-04-2025 End: 02-27-2026 OCT MACULA CIRRUS OU (BOTH EYES) OCT MACULA CIRRUS OU (BOTH EYES) [facility] Imaging Routine 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, without long-term current use of insulin (HCC) Expected: 08/04/2025, Expires: 01/11/2026 [facility] Work Phone: Comment on above: Expected: 08/04/2025, Expires: Start: 07-20-2025 Glaucoma screening Dilated Retinal Exam [facility] Start: 07-16-2025 Influenza [facility] Start: 05-31-2025 End: 05-31-2025 Patient encounter procedure 05/31/2025 10:45 AM EDT Office Visit [facility] [address] [place] [id number] Sergo Chirinos MD, PhD [address] [place] [address] *15 weeks (around 05/31/2025) for STI avastin OD/ OCT. Ophthalmology Comment on above: *15 weeks (around 05/31/2025) for STI france stin OD/ OCT. Start: 05-21-2025 Clostridioides difficile (PCR) Clostridioides difficile (PCR) [facility] Start: 05-21-2025 Enteric Bacteriology Enteric Bacteriology [facility] Start: 05-21-[address] [facility] Start: 04-24-2025 OCT OPTIC NERVE CIRRUS OU (BOTH EYES) OCT OPTIC NERVE CIRRUS OU (BOTH EYES) [facility] Imaging Routine Ocular hypertension of left eye Expected: 04/24/2025 [facility] Work Phone: Comment on above: Expected: 04/24/2025 Start: 04-24-2025 VISUAL FIELD 24-2 OU (BOTH EYES) VISUAL FIELD 24-2 OU (BOTH EYES) [facility] Imaging Routine Ocular hypertension of left eye Expected: 04/24/2025 [facility] Work Phone: Comment on above: Expected: 04/24/2025 Start: 03-27-2025 Covid-19 Vaccine ( season) Covid-19 Vaccine ( season) [facility] Start: 03-27-2025 Complete blood count [facility] Start: 03-26-2025 Complete blood count [facility] Start: 03-25-2025 Complete blood count [facility] Start: 03-24-2025 Complete blood count [facility] Start: 03-23-2025 Patient discharge [facility] Start: 03-23-2025 Care of hemodialysis equipment [facility] Start: 03-23-2025 Hemodialysis care [facility] Start: 03-23-[address] [facility] Start: 03-21-2025 Care of hemodialysis equipment [facility] Start: 03-21-2025 Hemodialysis care [facility] Start: 03-21-[address] [facility] Start: 03-20-2025 Dietary regime [facility] Start: 03-20-[address] [facility] Start: 03-19-2025 End: 03-19-[address] [facility] Start: 03-19-2025 Referral to service [facility] Start: 03-19-2025 Anaerobic microbial culture Anaerobic Culture [facility] Start: 03-19-2025 Fungal Culture Fungal Culture [facility] Start: 03-19-2025 Fungal Smear Fungal Smear [facility] Start: 03-19-2025 Microbial culture, routine Wound Culture [facility] Start: 03-19-2025 Mycology culture [facility] Start: 03-19-2025 Source specific culture [facility] Start: 03-19-2025 Care of hemodialysis equipment [facility] Start: 03-19-2025 Hemodialysis care [facility] Start: 03-19-[address] [facility] Start: 03-17-2025 Care of hemodialysis equipment [facility] Start: 03-17-2025 Hemodialysis care [facility] Start: 03-17-2025 End: 03-17-[address] [facility] Start: 03-16-2025 [address]ound care [facility] Start: 03-16-2025 Care of hemodialysis equipment [facility] Start: 03-16-2025 Hemodialysis care [facility] Start: 03-16-2025 End: 03-16-[address] [facility] Start: 03-16-2025 Referral to preparole counseling aide [facility] Start: 03-15-2025 Consultation for treatment [facility] Start: 03-15-[address] [facility] Start: 03-15-2025 Patient referral to dietitian [facility] Start: 03-15-2025 Referral to general surgeon [facility] Start: 03-14-2025 Referral to occupational therapist [facility] Start: 03-14-2025 Referral to service [facility] Start: 03-14-2025 Following clinical pathway protocol [facility] Start: 03-14-2025 Providing care according to standard [facility] Start: 03-14-2025 Oxygen therapy [facility] Start: 03-13-2025 Ambulation without limitation [facility] Start: 03-13-2025 Assessment of risk of venous thromboembolism [facility] Start: 03-13-2025 Insertion of catheter into peripheral vein [facility] Start: 03-13-2025 Measuring intake and output [facility] Start: 03-13-2025 Providing care according to standard [facility] Start: 03-13-2025 Referral to 3rd mate [facility] Start: 03-13-2025 Referral to ip litigation associate [facility] Start: 03-13-[address] [facility] Start: 03-13-2025 Electrolytes measurement, urine [facility] Start: 03-13-[address] [facility] Start: 03-13-2025 Osmolality measurement, serum [facility] Start: 03-13-2025 Verification routine [facility] Start: 03-13-2025 Admission procedure [facility] Start: 03-13-2025 Hospital admission, emergency, from emergency room, medical nature [facility] Start: 03-13-[address] [facility] Start: 03-13-[address] [facility] Start: 02-15-2025 End: 02-15-2025 Patient encounter procedure 02/15/2025 10:45 AM EDT Office Visit [facility] [address] [place] [address] Sergo Chirinos MD, PhD [address] [place] [address] 11 weeks (around 02/15/2025) for DFE/ OCT/OCTa both eyes ? avastin. Ophthalmology Comment on above: 11 weeks (around 02/15/2025) for DFE/ OCT/ OCTa both eyes ? avastin. Start: 11-30-2024 End: 11-30-2024 Patient encounter procedure 11/30/2024 9:15 AM EST Office Visit [facility] [address] [place] [address] Sergo Chirinos MD, PhD [address] [place] [address] STI avastin OD/ OCT- okay to overbook at 9:15 Ophthalmology Comment on above: STI avastin OD/ OCT- okay to overbook at 9:15 Start: 11-15-2024 Advance Directive Discussion Advance Directive Discussion [facility] Start: 11-15-2024 Medicare Advantage Annual Wellness Visit Medicare Advantage Annual Wellness Visit [facility] Start: 11-02-2024 Patient discharge [facility] Start: 10-31-[address] [facility] Start: 10-31-2024 Inhalation therapy procedure [facility] Start: 10-30-2024 Assessment of risk of venous thromboembolism [facility] Start: 10-30-2024 Care regimes management [facility] Start: 10-30-2024 Elevation of affected extremity [facility] Start: 10-30-2024 Insertion of catheter into peripheral vein [facility] Start: 10-30-2024 Measuring intake and output [facility] Start: 10-30-2024 Notification of physician [facility] Start: 10-30-2024 Oxygen therapy [facility] Start: 10-30-2024 Patient education [facility] Start: 10-30-2024 Providing care according to standard [facility] Start: 10-30-2024 Provision of activity privileges [facility] Start: 10-30-2024 Referral to occupational therapist [facility] Start: 10-30-2024 Referral to service [facility] Start: 10-30-2024 End: 10-30-[address] [facility] Start: 10-30-2024 Following clinical pathway protocol [facility] Start: 10-30-2024 Admission procedure [facility] Start: 10-21-2024 Patient discharge [facility] Start: 10-20-2024 Continuous pulse oximetry [facility] Start: 10-19-2024 Continuous positive airway pressure ventilation treatment [facility] Start: 10-18-2024 Oxygen therapy [facility] Start: 10-18-2024 Application of intermittent pneumatic compression device [facility] Start: 10-18-2024 Following clinical pathway protocol [facility] Start: 10-18-2024 Cardiac monitoring [facility] Start: 10-18-2024 Catheterization of vein [facility] Start: 10-18-2024 Notification of physician [facility] Start: 10-18-2024 Referral to 3rd mate [facility] Start: 10-18-[address] [facility] Start: 10-18-2024 Admission procedure [facility] Start: 10-05-2024 End: 10-05-2024 Patient encounter procedure Ophthalmology Comment on above: STI AVASTIN RE *4-6 W STI AVASTIN O D PER COOPER Start: 09-06-2024 End: 09-06-2024 Patient encounter procedure 09/06/2024 1:00 PM EDT Office Visit [facility] [address] [place] [address] Sarah Reilly II, OD [address] [place] [address] Eye exam [employer] Optometry Comment on above: Eye exam [employer] Start: 08-24-2024 End: 08-24-2024 Patient encounter procedure 08/24/2024 11:00 AM EDT Office Visit [facility] [address] [place] [address] Yen Gamboa MD [address] [place] [address] STI AVASTIN RE Ophthalmology Comment on above: STI AVASTIN RE Start: 08-04-2024 Glaucoma screening Dilated Retinal Exam [facility] Start: 08-04-2024 Hepatitis C antibody, confirmatory test Dilated Retinal Exam [facility] Start: 07-20-2024 Mammography Mammogram Screening [facility] Start: 07-20-2024 Screening for malignant neoplasm of breast [facility] Start: 07-16-2024 Covid-19 Vaccine ( season) Covid-19 Vaccine () [facility] Start: 07-16-2024 Covid-19 Vaccine () Covid-19 Vaccine () [facility] Start: 07-16-2024 Influenza vaccination Influenza Vaccine (#1) [facility] Start: 04-24-2024 OCT OPTIC NERVE CIRRUS OU (BOTH EYES) OCT OPTIC NERVE CIRRUS OU (BOTH EYES) [facility] Imaging Routine Ocular hypertension of left eye Expected: 04/24/2024 [facility] Work Phone: Comment on above: Expected: 04/24/2024 Start: 04-24-2024 VISUAL FIELD 24-2 OU (BOTH EYES) VISUAL FIELD 24-2 OU (BOTH EYES) [facility] Imaging Routine Ocular hypertension of left eye Expected: 04/24/2024 [facility] Work Phone: Comment on above: Expected: 04/24/2024 Start: 12-03-2023 Hepatitis C antibody, confirmatory test DILATED RETINAL EXAM [facility] Start: 11-15-2023 Advance Directive Discussion Advance Directive Discussion [facility] Start: 11-15-2023 Depression Assessment Depression Assessment [facility] Start: 10-01-2023 Hepatitis C antibody, confirmatory test DILATED RETINAL EXAM [facility] Start: 09-30-2023 End: 09-30-2023 Xcapsl ctrc rmvl insj io lens prosth w/o ecp Phacoemulsification Cataract with Insertion Intraocular Lens Combined forms of age-related cataract of right eye 09/30/2023 9:55 AM EST Virtual [facility] [place] Start: 08-26-2023 End: 08-26-2023 Phacoemulsification Cataract with Insertion Intraocular Lens Phacoemulsification Cataract with Insertion Intraocular Lens Combined 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 08/26/2023 12:17 PM EDT [facility] Work Phone: Start: 07-16-2023 Covid-19 Vaccine ( season) Covid-19 Vaccine () [facility] Start: 07-16-2023 Influenza vaccination Influenza Vaccine (#1) [facility] Start: 03-22-2023 YEE, Provider: Alejandra Cutler, Status: Pen, Time: 2:00 PM PTRECHECKA, Provider: Alejandra Cutler, Status: Pen, Time: 2:00 PM [facility] Work Phone: Start: 02-15-2023 PTRECHECKJose, Provider: Alejandra Cutler, Status: Pen, Time: 4:30 PM PTRECHECKA, Provider: Alejandra Cutler, Status: Pen, Time: 4:30 PM [facility] Work Phone: Start: 02-12-2023 PTFUADULT4, Provider: Giselle Guzman, Status: Pen, Time: 1:15 PM PTFUADULT4, Provider: Giselle Guzman, Status: Pen, Time: 1:15 PM [facility] Work Phone: Start: 02-08-2023 PTFUADULT4, Provider: Giselle Guzman, Status: Pen, Time: 1:15 PM PTFUADULT4, Provider: Giselle Guzman, Status: Pen, Time: 1:15 PM [facility] Work Phone: Start: 02-05-2023 PTFUADULT4, Provider: Giselle Guzman, Status: Pen, Time: 2:45 PM PTFUADULT4, Provider: Giselle Guzman, Status: Pen, Time: 2:45 PM [facility] Work Phone: Start: 02-03-2023 PTFUADULT4, Provider: Giselle Guzman, Status: Pen, Time: 2:45 PM PTFUADULT4, Provider: Giselle Guzman, Status: Pen, Time: 2:45 PM [facility] Work Phone: Start: 01-29-2023 PTFUADULT4, Provider: Yahaira West, Status: Pen, Time: 10:45 AM PTFUADULT4, Provider: Yahaira West, Status: Pen, Time: 10:45 AM [facility] Work Phone: Start: 01-15-2023 PTFUADULT4, Provider: Giselle Guzman, Status: Pen, Time: 1:15 PM PTFUADULT4, Provider: Giselle Guzman, Status: Pen, Time: 1:15 PM [facility] Work Phone: Start: 01-11-2023 PTRECHECKA, Provider: Alejandra Cutler, Status: Pen, Time: 2:00 PM PTRECHECKA, Provider: Alejandra Cutler, Status: Pen, Time: 2:00 PM [facility] Work Phone: Start: 01-08-2023 PTFUADULT4, Provider: Giselle Guzman, Status: Pen, Time: 1:15 PM PTFUADULT4, Provider: Giselle Guzman, Status: Pen, Time: 1:15 PM [facility] Work Phone: Start: 01-04-2023 PTFUADULT4, Provider: Giselle Guzman, Status: Pen, Time: 1:15 PM PTFUADULT4, Provider: Giselle Guzman, Status: Pen, Time: 1:15 PM [facility] Work Phone: Start: 01-01-2023 PTFUADULT4, Provider: Giselle Guzman, Status: Pen, Time: 1:15 PM PTFUADULT4, Provider: Giselle Guzman, Status: Pen, Time: 1:15 PM [facility] Work Phone: Start: 12-30-2022 Hepatitis C antibody, confirmatory test DILATED RETINAL EXAM [facility] Start: 12-28-2022 PTFUADULT4, Provider: Giselle Guzman, Status: Pen, Time: 11:30 AM PTFUADULT4, Provider: Giselle Guzman, Status: Pen, Time: 11:30 AM [facility] Work Phone: Start: 12-25-2022 PTFUADULT4, Provider: Giselle Guzman, Status: Pen, Time: 1:15 PM PTFUADULT4, Provider: Giselle Guzman, Status: Pen, Time: 1:15 PM [facility] Work Phone: Start: 12-23-2022 PTFUADULT4, Provider: Giselle Guzman, Status: Pen, Time: 1:15 PM PTFUADULT4, Provider: Giselle Guzman, Status: Pen, Time: 1:15 PM [facility] Work Phone: Start: 12-18-2022 PTFUADULT4, Provider: Giselle Guzman, Status: Pen, Time: 1:15 PM PTFUADULT4, Provider: Giselle Guzman, Status: Pen, Time: 1:15 PM [facility] Work Phone: Start: 12-14-2022 PTRECHECKA, Provider: Alejandra Cutler, Status: Pen, Time: 1:45 PM PTRECHECKJose, Provider: Alejandra Cutler, Status: Pen, Time: 1:45 PM [facility] Work Phone: Start: 12-11-2022 PTFUADULT4, Provider: Giselle Guzman, Status: Pen, Time: 1:15 PM PTFUADULT4, Provider: Giselle Guzman, Status: Pen, Time: 1:15 PM [facility] [facility]: Start: 12-11-2022 Covid-19 Vaccine (5 - Moderna series) Covid-19 Vaccine (5 - Moderna series) [facility] Start: 12-07-2022 PTFUADULT4, Provider: Giselle Guzman, Status: Pen, Time: 1:15 PM PTFUADULT4, Provider: Giselle Guzman, Status: Pen, Time: 1:15 PM [facility] Work [facility]: Start: 12-04-2022 PTFUADULT4, Provider: Giselle Guzman, Status: Pen, Time: 4:15 PM PTFUADULT4, Provider: Giselle Guzman, Status: Pen, Time: 4:15 PM [facility] Work Phone: Start: 11-30-2022 PTFUADULT4, Provider: Giselle Guzman, Status: Pen, Time: 1:15 PM PTFUADULT4, Provider: Giselle Guzman, Status: Pen, Time: 1:15 PM [facility] [place] Work Phone: Start: 11-20-2022 Patient discharge [facility] Work Phone: Start: 11-19-2022 Following clinical pathway protocol [facility] Work Phone: Start: 11-19-2022 Oxygen therapy [facility] Work Phone: Start: 11-19-2022 Provision of overbed trapeze [facility] Work Phone: Start: 11-19-2022 Admission procedure [facility] Work Phone: Start: 11-19-2022 End: 11-19-[address] [facility] Work Phone: Start: 11-19-2022 Ambulation therapy management [facility] Work Phone: Start: 11-19-2022 Application of device [facility] Work Phone: Start: 11-19-2022 Assessment of risk of venous thromboembolism [facility] Work Phone: Start: 11-19-2022 Catheterization of vein [facility] Work Phone: Start: 11-19-[address] [facility] Work Phone: Start: 11-19-[address] [facility] Work Phone: Start: 11-19-2022 Following clinical pathway protocol [facility] Work Phone: Start: 11-19-2022 Incentive spirometry [facility] Work Phone: Start: 11-19-2022 Introduction of urinary catheter [facility] Work Phone: Start: 11-19-2022 Measuring intake and output [facility] Work Phone: Start: 11-19-2022 Neurovascular assessment [facility] Work Phone: Start: 11-19-2022 Patient education [facility] Work Phone: Start: 11-19-20[address] Procedure discontinued [facility] Work Phone: Start: 11-19-2022 Provision of activity privileges [facility] Work Phone: Start: 11-19-2022 Referral to occupational therapist [facility] Work Phone: Start: 11-19-2022 Referral to service [facility] Work Phone: Start: 11-19-2022 Vital signs measurements [facility] Work Phone: Start: 11-19-20[address] [facility] Work Phone: Start: 11-15-2022 ADVANCE DIRECTIVE DISCUSSION ADVANCE DIRECTIVE DISCUSSION [facility] Start: 11-15-2022 DEPRESSION ASSESSMENT DEPRESSION ASSESSMENT [facility] Start: 08-24-2022 PTRECHECKA, Provider: Alejandra Cutler, Status: Pen, Time: 4:00 PM PTRECHECKA, Provider: Alejandra Cutler, Status: Pen, Time: 4:00 PM [facility] Start: 08-21-2022 PTFUADULT4, Provider: Giselle Guzman, Status: Pen, Time: 1:15 PM PTFUADULT4, Provider: Giselle Guzman, Status: Pen, Time: 1:15 PM [facility] Work [facility] Start: 08-17-2022 PTFUADULT4, Provider: Giselle Guzman, Status: Pen, Time: 3:30 PM PTFUADULT4, Provider: Giselle Guzman, Status: Pen, Time: 3:30 PM [facility] Work Phone: Start: 08-14-2022 PTFUADULT4, Provider: Giselle Guzman, Status: Pen, Time: 2:45 PM PTFUADULT4, Provider: Giselle Guzman, Status: Pen, Time: 2:45 PM [facility] Start: 08-10-2022 PTFUADULT4, Provider: Giselle Guzman, Status: Pen, Time: 3:30 PM PTFUADULT4, Provider: Giselle Guzman, Status: Pen, Time: 3:30 PM [facility] Work [facility]: Start: 08-07-2022 PTFUADULT4, Provider: Yahaira West, Status: Pen, Time: 10:45 AM PTFUADULT4, Provider: Yahaira West, Status: Pen, Time: 10:45 AM [facility] Work [facility] Start: 08-03-2022 PTFUADULT4, Provider: Giselle Guzman, Status: Pen, Time: 3:30 PM PTFUADULT4, Provider: Giselle Guzman, Status: Parveen, Time: 3:30 PM [facility] Work Phone: Start: 07-16-2022 Influenza vaccination INFLUENZA (#1) [facility] Start: 04-15-2022 Urine microalbumin profile DTaP,Tdap,Td Vaccine (2 - Td or Tdap) [facility] Start: 02-10-2022 COVID-19 VACCINE (4 - Booster for Moderna series) COVID-19 VACCINE (4 - Booster for Moderna series) [facility] Start: 12-08-2021 COVID-19 Vaccine (2 - Moderna series) COVID-19 Vaccine (2 - Moderna series) [facility] Start: 11-15-2021 ADVANCE DIRECTIVE DISCUSSION ADVANCE DIRECTIVE DISCUSSION [facility] Start: 11-15-2021 DEPRESSION ASSESSMENT DEPRESSION ASSESSMENT [facility] Start: 09-30-2018 Pneumococcal Vaccine: 65+ (2 - PCV) Pneumococcal Vaccine: 65+ (2 - PCV) [facility] Start: 09-30-2018 Pneumococcal Vaccine: 65+ (2 of 2 - PCV) Pneumococcal Vaccine: 65+ (2 of 2 - PCV) [facility] Start: 2015 BONE DENSITY BONE DENSITY [facility] Start: 2015 Bone Density Screening Bone Density Screening [facility] Start: 2015 Pneumococcal Vaccine: 65+ (1 - PCV) Pneumococcal Vaccine: 65+ (1 - PCV) [facility] Start: 2015 Pneumococcal Vaccine: 65+ Years (1 - PCV) Pneumococcal Vaccine: 65+ Years (1 - PCV) [facility] Start: 2015 Screening for osteoporosis Bone Density Screening [facility] Start: 2010 Hepatitis B Vaccine (1 of 3 - Risk 3-dose series) Hepatitis B Vaccine (1 of 3 - Risk 3-dose series) [facility] Start: 2010 RSV Vaccine (1 - 1-dose 60+ series) RSV Vaccine (1 - 1-dose 60+ series) [facility] Start: 2010 RSV Vaccine (1 - Risk 60-74 years 1-dose series) RSV Vaccine (1 - Risk 60-74 years 1-dose series) [facility] Start: 2000 SHINGRIX VACCINE (1 of 2) SHINGRIX VACCINE (1 of 2) [facility] Start: 2000 Zoster Vaccines (1 of 2) Zoster Vaccines (1 of 2) [facility] Start: 1995 COLOGUARD (FIT-DNA) COLOGUARD (FIT-DNA) [facility] Start: 1995 Colonoscopy COLONOSCOPY [facility] Start: 1995 COLORECTAL CANCER SCREENING COLORECTAL CANCER SCREENING [facility] Start: [address] COLONOGRAPHY [facility] Start: 1995 FECAL OCCULT BLOOD FECAL OCCULT BLOOD [facility] Start: 1995 Screening for malignant neoplasm of colon [facility] Start: 1995 SIGMOIDOSCOPY SIGMOIDOSCOPY [facility] Start: 1990 Mammography MAMMOGRAM [facility] Start: 1972 DTaP/Tdap/Td Vaccines (1 - Tdap) DTaP/Tdap/Td Vaccines (1 - Tdap) [facility] Start: [address] [facility] Start: 1969 Urine screening for protein Diabetes: Urine Protein Screening [facility] Start: 1968 ANNUAL PCP TEAM CHRONIC DISEASE VISIT ANNUAL PCP TEAM CHRONIC DISEASE VISIT [facility] Start: 1968 Anxiety Screening Anxiety Screening [facility] Start: 1968 BP CONTROLLED (<130/80) BP CONTROLLED (<130/80) [facility] Start: 1968 Depression Screening Depression Screening [facility] Start: 1968 Hepatitis B surface antibody level LDL CHOLESTEROL [facility] Start: 1968 HEPATITIS C SCREENING HEPATITIS C SCREENING [facility] Start: 1968 Hepatitis C screening Hepatitis C Screening [facility] Start: 1962 Adult depression screening assessment DEPRESSION SCREENING [facility] Start: 1960 3 comp foot exam completed DIABETIC FOOT EXAM [facility] Start: 1960 Diabetic foot examination [facility] Start: 1960 Glaucoma screening Diabetes: Retinopathy Screening [facility] Start: 1960 Hepatitis B screening URINE ALBUMIN:CREATININE RATIO [facility] Start: 1956 Pneumococcal Vaccine: 65+ (1 - PCV) Pneumococcal Vaccine: 65+ (1 - PCV) [facility] Start: 1956 Pneumococcal Vaccine: 65+ Years (1 - PCV) Pneumococcal Vaccine: 65+ Years (1 - PCV) [facility] Start: 1956 PNEUMOCOCCAL: 65+ (1 - PCV) PNEUMOCOCCAL: 65+ (1 - PCV) [facility] Start: 1955 Hemoglobin A1c measurement HbA1C [facility] Start: 1955 Hemoglobin A1c/Hemoglobin.total in Blood HBA1C [facility] Start: 1950 Hemoglobin A1c measurement Diabetes: Hemoglobin A1C [facility] Start: 1950 Lipid panel Lipid Panel [facility] Start: 1950 Medicare Annual Wellness Visit Medicare Annual Wellness Visit (AWV) [facility] Start: 1950 Screening for malignant neoplasm of colon [facility] Start: 1950 Thyroid stimulating hormone measurement TSH Level [facility] Chloride measurement , urine [facility] Clostridioides diffi cile DNA [Presence] in Unspecified specimen by KATYA with probe detection [facility] Fungus identified in Unspecified specimen by Culture [facility] Fungus identified in Unspecified specimen by Fungus stain [facility] Glucose [Mass/volume ] in Serum or Plasma POCT Glucose Point of Care Testing - Docked Device Routine As needed (Lab) until discontinued starting 08/26/2023 [facility] Service Area Work Phone: Comment on above: As needed (Lab) until discontinued start ing 08/26/2023 Glucose [Mass/volume ] in Serum or Plasma POCT Glucose Point of Care Testing - Docked Device Routine As needed (Lab) until discontinued starting 09/30/2023 [facility] Service Area Work Phone: Comment on above: As needed (Lab) until discontinued start ing 09/30/2023 Lipid 1996 panel - S anmol or Plasma [facility] Nucleic acid assay [facility] Osmolality of Urine [facility] Patient Education RAD SHON floyd Instructions for Kidney Biopsy [facility] Work Phone: Patient referral [facility] Work Phone: Potassium [Moles/vol ume] in Urine [facility] Sodium [Moles/volume ] in Urine [facility] Troponin T.cardiac [Mass/volume] in Serum or Plasma by High sensitivity method [facility] Urine culture [facility] Immunizations Immunization Date Immunization Notes Care Provider Fa cili 09-27-2024 Covid (Spikevax) Donal Castle MD Work Phone: [facility] 09-27-2024 influenza, high dose seasonal, preservative-free Donal Castle MD Work Phone: [facility] 09-27-2024 influenza virus vaccine, unspecified formulation Sergo Chirinos MD, PhD Work Phone: [facility] 09-01-2023 influenza virus vaccine, unspecified formulation Sarah Reilly II, OD Work Phone: [facility] 09-21-2022 Influenza, injectabl e, Madin [place] Canine Kidney, preservative free, quadrivalent Dr. Girish Simon Work Phone: [facility] 09-21-2022 influenza virus vaccine, unspecified formulation Ivan Baxter MD Work Phone: [facility] 10-13-2021 Covid (Moderna) Dr. [facility] To tata Work Phone: [facility] 02-20-2021 Covid (Moderna) Dr[facility] Work Phone: [facility] 01-22-2021 Covid (Moderna) Dr[facility] Work Phone: [facility] Payers Date Payer Category Payer Self-pay 2021 Medicare [employer] MEDICARE A ETNA MEDICARE PPO [id number] 2021-Present [phone] [address] [place] [address] PPO [id number] 2021 Medicare [id number] 2021 Medicare (Managed Care) [employer] DICARE [id number] 2021 Unknown 2015 Private Health Insurance [id number] 2013 Unknown [id number] 1950 Unknown [id number] .1.428107.3.579.2. 903 1950 Unknown [id number] .1.444639.3.579.2. 1068 1950 Unknown [id number] .0.1.959329.3.579.2. 1068 1950 Unknown [id number] ..1.617218.3.579.2. 1068 1950 Unknown [id number] .1.586629.3.579.2. 1068 1950 Unknown [id number] 2.0.1.117812.3.579.2. 1068 1950 Unknown [id number] 2.16.840.1.951899.3.579.2. 1068 1950 Unknown [id number] 2.16.840.1.556533.3.579.2. 1068 1950 Unknown [id number] 2.16.840.1.971757.3.579.2. 1068 1950 Unknown [id number] 2.16.840.1.643954.3.579.2. 1068 1950 Unknown [id number] 2.16.840.1.084261.3.579.2. 1068 1950 Unknown [id number] 2.16.840.1.212251.3.579.2. 1068 1950 Unknown [id number] 2.16.840.1.065514.3.579.2. 1068 1950 Unknown [id number] 2.16840.1.459042.3.579.2. 1068 1950 Unknown [id number] 2.16.840.1.866949.3.579.2. 1068 1950 Unknown [id number] 2.16.840.1.822019.3.579.2. 1068 1950 Unknown [id number] 2.16.840.1.698353.3.579.2. 1068 1950 Unknown [id number] 2.16.840.1.145867.3.579.2. 1068 1950 Unknown [id number] 2.16.840.1.204328.3.579.2. 1068 1950 Unknown [id number] 2.16.840.1.114202.3.579.2. 1068 1950 Unknown [id number] 2.16.840.1.710530.3.579.2. 1068 1950 Unknown [id number] 2.16.840.1.888996.3.579.2. 1068 1950 Unknown [id number] 2.840.1.570536.3.579.2. 1068 1950 Unknown [id number] 2.840.1.564497.3.579.2. 1068 1950 Unknown [id number] 2..840.1.497782.3.579.2. 1068 1950 Unknown [id number] 2.840.1.223324.3.579.2. 1068 1950 Unknown [id number] 2.840.1.093988.3.579.2. 1068 1950 Unknown [id number] 2.0.1.737967.3.579.2. 1068 1950 Unknown [id number] 2.840.1.207215.3.579.2. 1243 Medicare MEDICARE PART A B [id number] Private Health Insurance [id number] Unknown [id number] 2.840.1.583692.3.579.2. 462 Unknown [id number] 2.840.1.178104.3.579.2. 462 Unknown [id number] 2.840.1.254259.3.579.2. 462 Unknown [id number] 2.840.1.726281.3.579.2. 462 Unknown [id number] 2.840.1.217052.3.579.2. 462 Unknown [id number] 2.840.1.856735.3.579.2. 462 Unknown [id number] 2.16840.1.631058.3.579.2. 462 Unknown [id number] 2.16840.1.725194.3.579.2. 462 Unknown [id number] 2.840.1.111666.3.579.2. 462 Unknown [id number] 2.16.840.1.921253.3.579.2. 462 Unknown [id number] 2.16.840.1.619619.3.579.2. 462 Unknown [id number] 2.16.840.1.881609.3.579.2. 462 Unknown [id number] 2.16.840.1.773055.3.579.2. 462 Unknown [id number] 2.16.840.1.848586.3.579.2. 462 Unknown [id number] 2.16840.1.271824.3.579.2. 462 Unknown [id number] 2.16840.1.975575.3.579.2. 462 Unknown [id number] 2.16.840.1.801243.3.579.2. 462 Unknown [id number] 2.16840.1.520287.3.579.2. 462 Unknown [id number] 2.16840.1.401922.3.579.2. 462 Unknown [id number] 2.16840.1.259579.3.579.2. 462 Unknown [id number] 2.16840.1.342759.3.579.2. 462 Unknown [id number] 2.16840.1.089120.3.579.2. 462 Unknown [id number] 2.16.840.1.662482.3.579.2. 462 Unknown [id number] 2.16.840.1.747169.3.579.2. 462 Unknown [id number] 2.16.840.1.793332.3.579.2. 462 Unknown [id number] 2.16.840.1.031218.3.579.2. 462 Unknown [id number] 2.16.840.1.411048.3.579.2. 462 Unknown [id number] 2.16840.1.644651.3.579.2. 462 Unknown [id number] 2.16.840.1.269900.3.579.2. 462 Unknown [id number] 2.16.840.1.317261.3.579.2. 462 Unknown [id number] 2.16.840.1.566786.3.579.2. 462 Unknown [id number] 2.16.840.1.927110.3.579.2. 462 Unknown [id number] 2.16.840.1.779693.3.579.2. 462 Unknown [id number] 2.16840.1.819846.3.579.2. 462 Unknown [id number] 2.16840.1.022395.3.579.2. 462 Unknown [id number] 2.16840.1.956415.3.579.2. 462 Unknown [id number] 2.16840.1.923962.3.579.2. 462 Unknown [id number] 2.16.840.1.919481.3.579.2. 462 Unknown [id number] 2.16.840.1.852002.3.579.2. 462 Unknown [id number] 2.16.840.1.347656.3.579.2. 462 Unknown [id number] 2.16.840.1.697889.3.579.2. 462 Unknown [id number] 2.16.840.1.426196.3.579.2. 462 Unknown [id number] 2.16.840.1.471241.3.579.2. 462 Unknown [id number] 2.16.840.1.613162.3.579.2. 462 Unknown [id number] 2.16.840.1.714813.3.579.2. 462 Unknown [id number] 2.16.840.1.321016.3.579.2. 462 Unknown [id number] 2.16.840.1.733096.3.579.2. [id number] Unknown [id number] Unknown [id number] Social History Date Type Detail Facility Start: 01-02-2015 End: 12-03-2022 Tobacco smoking status NHIS Never smoked tobacco [facility] Start: 01-02-2015 End: 12-03-2022 Tobacco use and exposure Smokeless tobacco non-user [facility] Start: 05-05-2022 End: 05-31-2025 Alcohol intake Current non-drinker of alcohol (finding) [facility] Start: 1950 Sex Assigned At Not on file [facility] Start: 04-25-2022 End: 09-30-2023 Exposure to SARS-CoV-2 (event) Not sure [facility] Start: 08-04-2023 End: 12-22-2023 No illicit drug use No illicit drug use [facility] Work Phone: Start: 11-05-2022 Tobacco smoking status NHIS Unknown if ever smoked [facility] Start: 1950 Sex Assigned At Female [facility] Start: 08-04-2023 End: 12-22-2023 Tobacco use panel [facility] National Score (1-100), lower number is lower risk 79 [facility] Start: 08-26-2023 End: 09-27-2023 Alcohol intake Lifetime non-drinker (finding) [facility] Work Phone: Start: 01-25-2025 End: 03-13-2025 Sex Female (finding) [facility] NEGATED: Highlighted row Not [facility] Medical Equipment Procedure Code Equipment Code Equipment Origin al Text Equipment Identifier Dates Insertion, catheter, hemodialysis Double-lumen haemodialysis catheter, implantable [id number] FDA Start: 03-16-2025 [id number] Start: 08-26-2023 Lens, Intraocula r, [id number] 20.5 Kandace - [id number] - [id number] Start: 09-30-2023 CLUSTERHOLE ACETABULAR SHELL FDA Start: 11-19-2022 FEMORAL HEAD FDA Start: 11-19-2022 NECK ANGLE HIP STEM FDA Start : 11-19-2022 POLY INSERT FDA Start: 11-19-2022 CLUSTERHOLE ACETABULAR SHELL FDA Start: 11-19-2022 FEMORAL HEAD FDA Start: 11-19-2022 NECK ANGLE HIP STEM FDA Start : 11-19-2022 POLY INSERT FDA Start: 11-19-2022 CLUSTERHOLE ACETABULAR SHELL FDA Start: 11-19-2022 FEMORAL HEAD FDA Start: 11-19-2022 NECK ANGLE HIP STEM FDA Start : 11-19-2022 POLY INSERT FDA Start: 11-19-2022 CLUSTERHOLE ACETABULAR SHELL FDA Start: 11-19-2022 FEMORAL HEAD FDA Start: 11-19-2022 NECK ANGLE HIP STEM FDA Start : 11-19-2022 POLY INSERT FDA Start: 11-19-2022 CLUSTERHOLE ACETABULAR SHELL FDA Start: 11-19-2022 FEMORAL HEAD FDA Start: 11-19-2022 NECK ANGLE HIP STEM FDA Start : 11-19-2022 POLY INSERT FDA Start: 11-19-2022 CLUSTERHOLE ACETABULAR SHELL FDA Start: 11-19-2022 FEMORAL HEAD FDA Start: 11-19-2022 NECK ANGLE HIP STEM FDA Start : 11-19-2022 POLY INSERT FDA Start: 11-19-2022 CLUSTERHOLE ACETABULAR SHELL FDA Start: 11-19-2022 FEMORAL HEAD FDA Start: 11-19-2022 NECK ANGLE HIP STEM FDA Start : 11-19-2022 POLY INSERT FDA Start: 11-19-2022 CLUSTERHOLE ACETABULAR SHELL FDA Start: 11-19-2022 FEMORAL HEAD FDA Start: 11-19-2022 NECK ANGLE HIP STEM FDA Start : 11-19-2022 POLY INSERT FDA Start: 11-19-2022 Goals Date Patient Goal Desired Activity /State Functional Status Date Assessment Result Facility 03-23-2025 Functional status Bedpan [facility] Work Phone: 11-02-2024 Functional status Ambulates;Chair [facility] Work Phone: 11-01-2024 Functional status Tolerates Activity Well [facility] Work Phone: 10-21-2024 Functional status Chair [facility] Work Phone: 11-20-2022 Functional status Ambulates;Bedside Commo de [facility] Work Phone: Mental Status Date Assessment Result Facility 03-23-2025 Cognitive function Voice/Name [facility] Work Phone: 03-13-2025 Cognitive function Level Of Cons ciousness Awake;Alert;Appropriate;Follow s Commands [facility] Work Phone: 11-02-2024 Cognitive function Voice/Name [facility] Work Phone: 10-21-2024 Cognitive function Voice/Name [facility] Work Phone: 11-20-2022 Cognitive function Voice/Name [facility] Work Phone: Clinical Notes 01-02-2015 to 05-31-2025 Patient Sergo Marks MD, PhD - 05/31/2025 10:45 AM EDT Note Date & Type Note Facility 05-31-2025 Note Date of Procedure 05/31/2025 Eugene Protocol Safety Checklist A moment of CARE was completed Sign In Sign in communication not applicable due to emergent procedure. Personnel directly involved with the procedure wore the appropriate PEE. Special Equipment: yes. Patient/surrogate stated/verified patient name, date of , relevant allergies, intended procedure. Provider Confirms: Relevant labs, photos, and/or imaging studies have been reviewed. Intended patient and procedure match the source document(s) (e.g. consent, associated studies [imaging, pathology]). Consent obtained and matches the intended procedure. Correct side/site marked and visible. Medications required for procedure verified. Fire risk assessed and interventions discussed: N/A. Correct implant(s) confirmed including size and side, expiration date(s) reviewed. Sign Out All specimens are correctly labeled and sent: N/A. All instruments, equipment, possible retained foreign bodies accounted for. Post-procedure POC communicated to patient or surrogate. Post-procedure POC communicated to patient's multidisciplinary team. Anesthesia 0.5 mL subconjunctival injection of 2% Lidocaine, 1-2 drops Topical 0.5% Proparacaine. Prep 5% Betadine. Injection Administration Medication: 1.25 mg bevacizumab (Oralia's) 2.25 mg/0.09 mL Route: INTRAVITREAL, Site: Right Balance Wasted Residual medication less than 1 unit was discarded. Anterior Chamber Paracentesis No. Post Injection Evaluation Patient has at least hand motion vision. Post Procedure Medications None. Home Going Prescription None. [facility] 05-31-2025 Instructions Sergo Chirinos MD, PhD - 05/31/2025 12:05 PM EDT Post Injection Patient Information You had eye injection(s) today. These are your after injection instructions. Today: Preservative free artificial tears 1 drop every hour while awake as needed Tomorrow: Preservative free artificial tears 1 drop every 2 hours while awake as needed Care instructions after eye injections: Do not rub or touch your eye other than dabbing lightly with a tissue An vjgi-zuk-hwxgsor pain reliever (i.e. Tylenol) can be used for mild soreness Use artificial tears/lubricating drops once an hour as needed for comfort (chill the tears in the refrigerator for more comfort). If you are using the tears more than 4 times a day they need to be the preservative free kind Warm or cool compresses are okay It is okay to shower and wash your face. No swimming pools or saunas for 24 hours COMMON symptoms after successful eye injections: Mild to moderate pain or irritation beginning the day of the injection. This should begin to improve the following day. Eyelash in the eye or hiram/gritty sensation Tearing Mild floaters or bubbles in your vision - usually resolves after 1-2 days Bloody tears for 1-2 days after treatment Eye Redness Also known as subconjunctival hemorrhage This bruise can cover the entire white part of the eye and may last a few weeks CONCERNING symptoms after eye injections: Severe, constant pain Worsening pain after the first day Decreased vision Severe, constant floaters Curtain or veil in your vision New eye redness that was not there after the injection and covers the whole eye Please call the office immediately for any of the above listed concerning symptoms or with any other questions. 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 OCT Macula Interpretation Right Eye Normal foveal contour. Left Eye Abnormal foveal contour. Findings include IS/OS junction, Atrophy; Negative for Intraretinal fluid, Subretinal fluid. ZEISS 05-31-2025 History of Present illness Narrative Patient of Dr. Chirinos 0. 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 Posterior vitreous detachment (PVD) left eye Type 2 diabetes mellitus without retinopathy -rec good blood sugar control 3. History of Central retinal artery occlusion left eye -now with atrophy and nerve pallor -cilioretinal artery sparing -stable/monitor -rec good blood pressure control 4. Ocular hypertension of left eye -brimonidine twice a day both eyes both eyes -monitored by Dr. Reilly 5. Posterior chamber intraocular lens (PCIOL) both eyes -with Dr. Baxter, both eyes done end of 2022 Plan: Now on dialysis but renal function improving S/p avastin right eye 15 weeks ago (planned extension) with no fluid Rec avastin right eye Extend to 16-17w - discuss next visit observation vs inj Full exam in Blood pressure control I have confirmed and edited as necessary the relevant HPI, ophthalmic history, ROS, and the neuro exam findings as obtained by others. I have seen and examined Misael Medina. I have discussed the case and the management of this patient's care with the Resident/Fellow, if applicable. I also have reviewed and agree with the assessment and plan as stated above and agree with all of its relevant components. Sergo Chirinos MD documented in this encounter [facility] 05-31-2025 Note HNO ID: [id number] Author: SERGO CHIRINOS MD, PhD Service: ? Author Type: Physician Type: Progress Notes Filed: 05/31/2025 12:06 Note Text: Patient of Dr. Chirinos 0. 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 Posterior vitreous detachment (PVD) left eye Type 2 diabetes mellitus without retinopathy -rec good blood sugar control 3. History of Central retinal artery occlusion left eye -now with atrophy and nerve pallor -cilioretinal artery sparing -stable/monitor -rec good blood pressure control 4. Ocular hypertension of left eye -brimonidine twice a day both eyes both eyes -monitored by Dr. Reilly 5. Posterior chamber intraocular lens (PCIOL) both eyes -with Dr. Baxter, both eyes done end of 2022 Plan: Now on dialysis but renal function improving S/p avastin right eye 15 weeks ago (planned extension) with no fluid Rec avastin right eye Extend to 16-17w - discuss next visit observation vs inj Full exam in Blood pressure control I have confirmed and edited as necessary the relevant HPI, ophthalmic history, ROS, and the neuro exam findings as obtained by others. I have seen and examined Misael Medina. I have discussed the case and the management of this patient's care with the Resident/Fellow, if applicable. I also have reviewed and agree with the assessment and plan as stated above and agree with all of its relevant components. Sergo Chirinos MD [facility] 03-23-2025 Consult note [facility] 03-23-2025 Discharge summary Note Date/Time March 23, 2025 11:24am [facility] Medical Records Department [address] [place] [address] [facility] MR#: [id number] Acct: [id number] Name: MISAEL MEDINA Rep #:[id number] : 1950 74 From: Fitz Ryan DO PCP: Dr. Donal Castle MD Status:ADM IN Certification of patient admission REQUIRED AT TIME OF ADMISSION. I CERTIFY THAT POST-HOSPITAL ECF SERVICES ARE REQUIRED TO BE GIVEN ON AN IN-PATIENT BASIS BECAUSE OF THE ABOVE NAMED PATIENT'S NEED FOR SNF CARE ON A CONTINUING BASIS FOR THE CONDITION(S) FOR WHICH HE/SHE WAS RECEIVING IN-PATIENT HOSPITAL SERVICES PRIOR TO HIS/HER TRANSFER TO THE [facility]. 03/23/25 1124<Electronically signed by Fitz Ryan DO> Diet Diet Order/Speech Therapy: 03/20/25 11:27 Diet: Renal - General Dietary Modifications:: Consistent Carbohydrate Type of Dietary Supplement:: Cornell Diet Comments: Cornell with breakfast and dinner Routine Orders/Code Status Routine Lab Work: CBC (weekly) and BMP (weekly) Code Status: Full Code DC O2, CPAP, BIPAP needs Home O2 Discharge instructions: Yes Type of respiratory needs?: Oxygen Oxygen frequency: Continuous Continuous oxygen liters per minute: 2 Wound(s) Right Great Toe: Wound Type: s/p amputation right hallux Dressing Change: betadine Adaptic Left 2nd toe: Wound Type: small scab right chest: Wound Type: dialysis catheter RIGHT FOOT: Wound Type: Surgical Incision L abdomen: Wound Type: Puncture Problem/Diagnosis (1) Acute on chronic renal failure: Status: Chronic Code(s): N17.9 - Acute kidney failure, unspecified; N18.9 - Chronic kidney disease, unspecified Plan: Tunneled dialysis cath placed 03/16. Now on HD nephrology following. kidney biopsy performed. DW Dr. Grande, preliminary looks like ATN. (2) Congestive heart failure: Status: Acute Code(s): I50.9 - Heart failure, unspecified Plan: acute HFrEF. EF 30% from echo on 12/12 Further fluid removal via dialysis. (3) Right hallux osteomyelitis: Status: Acute Code(s): M86.9 - Osteomyelitis, unspecified Plan: present on arrival. Patient underwent amputation on March 19. podiatry following on Amp/SB. Seen by ID and recommended 1 week amox/CA 250 BID. Wound culture from the second showed Enterococcus and Enterococcus Avium As WellAs a Gram-Positive Clinton. Wound Cultures from March 19 Currently Pending. (4) Ecchymosis: Status: Acute Code(s): R58 - Hemorrhage, not elsewhere classified Plan: unclear etiology. Hemoglobin stable. Monitor. Pt denies antecedent trauma. Plan Chronic conditions: * DM2: SSI. * hypothyroidism: levothyroxine * obesity class III: complicates care and recovery. VTE prophylaxis: SQ heparin. Disposition: to SNF. Allergies/Procedures Done in Hospital Allergies No Known Allergies Allergy (Verified 03/13/25 13:58) Procedures: Dialysis Type of Care/Length of Stay Estimated LOS: Convalescent Care Less Than 30 days Type of Care Needed: Skilled Rehab Potential: Fair Prognosis: Fair Additional Orders/Day of Discharge Day of Discharge: 03/23/25 Dietary and Speech Recommendations Dietitian Recommendations/Changes: Adjust to renal general, consistent carbohydrate. Will order cornell BID with breakfast and dinner to promote wound healing. Jason monitor weight trends. 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 for Kidney Biopsy Discharge Orders/Prescriptions Prescriptions: New doxycycline monohydrate 100 mg Capsule 100 mg PO BID 39 Days Qty: 78 0RF amoxicillin-pot clavulanate 250-125 mg tablet 1 tab PO BID 39 Days Qty: 78 0RF Continued levothyroxine [Synthroid] 100 mcg tablet 100 mcg PO DAILY atorvastatin 10 mg tablet 10 mg PO QHS carvedilol [Coreg] 6.25 mg tablet 6.25 mg PO BID Qty: 60 11RF Rx Instructions: must administer with a meal/food furosemide 40 mg tablet 40 mg PO QAM Qty: 30 0RF aspirin 81 mg Tablet,Chewable 81 mg PO DAILYCM 90 Days Qty: 90 0RF Discontinued metformin 500 mg tablet 500 mg PO BID dapagliflozin propanediol [Farxiga] 10 mg tablet 10 mg PO QDAY Qty: 30 3RF Patient Comments: PT HAS NOT PICKED UP YET Referrals / Follow Up: Donal Castle MD [Primary Care Provider] - Disposition Disposition (needs filled in before D/C Order can be placed): Group Home Facility (1) Acute on chronic renal failure Qualifiers: Acute renal failure type: unspecified Chronic kidney disease stage: stage 3 (moderate) Chronic kidney disease stage 3 subtype: stage 3a (GFR 45-59) Qualified Code(s): N17.9 - Acute kidney failure, unspecified; N18.31 - Chronic kidney disease, stage 3a (2) Congestive heart failure Qualifiers: Heart failure type: systolic Heart failure chronicity: acute on chronic Qualified Code(s): I50.23 - Acute on chronic systolic (congestive) heart failure 03/23/25 1124 <Electronically signed by Ftiz Ryan DO> Cosigner Signature (if applicable): CC: DPM Dr. Lucas Coronado; Dr. Seth Garnica DO; Dr. Donal Castle MD; Dr. Fitz Ryan DO; Dr. Lorraine Grande MD; Dr. Joao Francois MD; Dr. Bandar Linares MD; Dr. Milton Muñoz MD; Dr. Aparna Mabry MD; Dr.Robert Cammie MD ~ [facility] Work Phone: [phone]) 568-272605-09-2025 Discharge summary Author [facility] Note Date/Time March 23, 2025 11:29a m [facility] Medical Records Department [address] [place] [address] Discharge Summary 03/23/25 1124 MR#: [id number] Acct: [id number] Name: MISAEL MEDINA Rep #:[id number] : 1950 74 From: Fitz Ryan DO PCP: Dr. Donal Castle MD Status:ADM IN Location: [place] [address]- 1 Providers Date of Admission: 03/13/25 Primary Care Physician: Donal Castle MD Consultations 03/13/25 19:49 Consult: Cardiology Routine Consulting Provider: Bandar Linares Reason for Consult: CHF with elevated troponin EMERGENT Consult: No MD Notified: Yes Date Notified: 03/13/25 Time Notified: 18:38 Method of Notification: Verbal Consult: Nephrology Routine Consulting Provider: Lorraine Grande Reason for Consult: Acute renal failure EMERGENT Consult: No MD Notified: Yes Date Notified: 03/13/25 Time Notified: 23:40 Method of Notification: Answering Service 03/15/25 09:41 Consult: General Surgery Routine Consulting Provider: Joao Francois Reason for Consult: tunneled HD line placement EMERGENT Consult: No MD Notified: Yes Date Notified: 03/15/25 Time Notified: 10:05 Method of Notification: Text 03/15/25 19:23 Consult: Onc/Wound/auto bumper mechanic Routine Comment: Comments:: Right great toe necrotic ulcer 03/16/25 09:36 Consult: Podiatry Routine Consulting Provider: Lucas Coronado Reason for Consult: right great toe wound EMERGENT Consult: No MD Notified: Yes Date Notified: 03/16/25 Time Notified: 09:36 Method of Notification: Text 03/20/25 08:52 Consult: Infectious Disease Routine Consulting Provider: Oswald Bonds Reason for Consult: R toe osteo, cultures thusfar polymicrobial, pod rec'd IDc/s for abx mngmt EMERGENT Consult: No Notified: Yes Date Notified: 03/20/25 Time Notified: 08:52 Method of Notification: Text Reason For Visit: ABNORMAL LABS Diagnosis Discharge Diagnosis (1) Acute on chronic renal failure: Status: Chronic Code(s): N17.9 - Acute kidney failure, unspecified; N18.9 - Chronic kidney disease, unspecified Qualifiers: Acute renal failure type: unspecified Chronic kidney disease stage: stage 3 (moderate) Chronic kidney disease stage 3 subtype: stage 3a (GFR 45-59) Qualified Code(s): N17.9 - Acute kidney failure, unspecified; N18.31 - Chronic kidney disease, stage 3a Plan: Tunneled dialysis cath placed 03/16. Now on HD nephrology following. kidney biopsy performed. DW Dr. Grande, preliminary looks like ATN. (2) Congestive heart failure: Status: Acute Code(s): I50.9 - Heart failure, unspecified Qualifiers: Heart failure type: systolic Heart failure chronicity: acute on chronic Qualified Code(s): I50.23 - Acute on chronic systolic (congestive) heart failure Plan: acute HFrEF. EF 30% from echo on 12/12 Further fluid removal via dialysis. Still very edematous. (3) Right hallux osteomyelitis: Status: Acute Code(s): M86.9 - Osteomyelitis, unspecified Plan: present on arrival. Patient underwent amputation on March 19. podiatry following on Amp/SB. Seen by ID and recommended 1 week amox/CA 250 BID and doxycycline. Wound culture from the second showed Enterococcus and Enterococcus Avium As WellAs a Gram-Positive Clinton. Wound Cultures from March 19 Currently Pending. (4) Ecchymosis: Status: Acute Code(s): R58 - Hemorrhage, not elsewhere classified Plan: unclear etiology. Hemoglobin stable. Monitor. Pt denies antecedent trauma. Plan Chronic conditions: * DM2: SSI. * hypothyroidism: levothyroxine * obesity class III: complicates care and recovery. VTE prophylaxis: SQ heparin. Disposition: to SNF. Medications at Discharge Home Medications atorvastatin 10 mg tablet 10 mg PO QHS cholesterol 08/31/22 levothyroxine 100 mcg tablet (Synthroid) 100 mcg PO DAILY thyroid 08/31/22 aspirin 81 mg chewable tablet 81 mg PO DAILYCM 90 days #90 tabs 10/21/24 carvedilol 6.25 mg tablet (Coreg) 6.25 mg PO BID #60 tabs 12/01/24 furosemide 40 mg tablet 40 mg PO QAM #30 tabs 03/12/25 amoxicillin 250 mg-potassium clavulanate 125 mg tablet 1 tab PO BID 39 days #78 tabs 03/22/25 doxycycline monohydrate 100 mg capsule 100 mg PO BID 39 days #78 caps 03/22/25 Hospital Course Operations - Procedures Central line placement (tunnelled hemodialysis catheter placement. ) and Dialysis Summary of Care Provided Minutes Spent on Discharge: 32 Hospital Course: Patient presents with heart failure compounded by kidney disease. Since the patient required dialysis and had a tunneled dialysis catheter placed and was started on hemodialysis with large volume of fluid removed with patient was still very edematous with profound edema in her lower extremities up into her abdomen. Patient also had osteomyelitis of her great toe which was amputated onMarch 19. Patient be discharged with Augmentin as well as doxycycline. Patient was seen in consultation by infectious disease. Patient will need to continue with dialysis at least in the short-term but more likely in the long-term. Interestingly while she was here she did develop ecchymosis in her shoulders bilaterally. There was no trauma. Patient did have a hemodialysis catheter placed on her right but she also had ecchymosis on her left shoulder. Is unclear what happened but her hemoglobin has remained stable here. Weight / BMI Weight Weight: 113.7 kg Body Mass Index (BMI) 49.2 ABG / Lab / Microbiology Data 03/23/25 04:42 03/23/25 04:42 Laboratory: Laboratory Results - last 24 hr 03/22/25 11:24: POC Glucose 137 H 03/22/25 17:39: POC Glucose 136 H 03/22/25 20:12: POC Glucose 182 H 03/23/25 04:42: WBC 7.5, RBC 3.77 L, Hgb 9.8 L, Hct 34.2 L, MCV 90.7, MCH 26.0 L, MCHC 28.7 L, RDW Std Deviation 57.6 H, RDW Coeff of Leif 17.2 H, Plt Count 182,MPV 10.2, Sodium 135, Potassium 4.0, Chloride 102, Carbon Dioxide 21.2, Anion Gap 12, BUN 48 H, Creatinine 4.76 H, Estim Creat Clear Calc 12.14 L, Est GFR (MDRD) Non-Af 9 L, BUN/Creatinine Ratio 10.1, Glucose 130 H, Calcium 8.0 03/23/25 06:05: POC Glucose 119 H Microbiology: Microbiology 03/19/25 12:50 Wound - Aerobic Swab Gram Stain - Final 03/19/25 12:50 Wound - Aerobic Swab Wound Culture - Preliminary Staphylococcus epidermidis Staphylococcus aureus GPC Poss Enterococcus sp 03/19/25 12:50 Wound - Aerobic Swab Anaerobic Culture - Final No anaerobic bacteria isolated. 03/19/25 12:50 Bone - Great Toe Gram Stain - Final 03/19/25 12:50 Bone - Great Toe Wound Culture - Final Staphylococcus haemolyticus Meth. resistant Staph. aureus Enterococcus faecalis Corynebacterium amycolatum 03/19/25 12:50 Bone - Great Toe Anaerobic Culture - Preliminary 03/16/25 09:25 Wound - Toe Gram Stain - Final 03/16/25 09:25 Wound - Toe Wound Culture - Final Enterococcus casseliflavus (D) Enterococcus avium Gram positive clinton 03/14/25 18:00 Urine Catheter - Catheter Urine Culture - Final Culture exhibits no growth. D/C Instructions Discharge Diet: Renal Diet DC O2, CPAP, BIPAP Needs Home O2 Discharge instructions: Yes Type of respiratory needs?: Oxygen Oxygen frequency: Continuous Continuous oxygen liters per minute: 2 DC home with Oxygen: Yes Home O2 MD Review: I have reviewed the oxygen testing, and the patient qualifies for home oxygen equipment and portability. The patient is mobile in the home and the community. Meaningful Use Info Meaningful Use Meaningful Use Diagnoses (Choose all that apply): None applicable Ischemic Stroke Statin Dosing Therapy Reference: STATIN DOSE THERAPY REFERENCE: * Patients > 75 years receive moderate or high dose statin therapy. * Patients 75 years or YOUNGER should receive HIGH intensity statin dose unless contraindicated. You will be required to document reason for non-treatment if statin daily dose does not meet guidelines. 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 Discharge Orders/Prescriptions Prescriptions: New doxycycline monohydrate 100 mg Capsule 100 mg PO BID 39 Days Qty: 78 0RF amoxicillin-pot clavulanate 250-125 mg tablet 1 tab PO BID 39 Days Qty: 78 0RF Continued levothyroxine [Synthroid] 100 mcg tablet 100 mcg PO DAILY atorvastatin 10 mg tablet 10 mg PO QHS carvedilol [Coreg] 6.25 mg tablet 6.25 mg PO BID Qty: 60 11RF Rx Instructions: must administer with a meal/food furosemide 40 mg tablet 40 mg PO QAM Qty: 30 0RF aspirin 81 mg Tablet,Chewable 81 mg PO DAILYCM 90 Days Qty: 90 0RF Discontinued metformin 500 mg tablet 500 mg PO BID dapagliflozin propanediol [Farxiga] 10 mg tablet 10 mg PO QDAY Qty: 30 3RF Patient Comments: PT HAS NOT PICKED UP YET Referrals / Follow Up: Donal Castle MD [Primary Care Provider] - Disposition Disposition (needs filled in before D/C Order can be placed): Group Home Facility Charges/Coding Visit Charges Inpatient E&M: 42091 Disch Hosp >30min 03/23/25 1129 <Electronically signed by Fitz Ryan DO> Cosigner Signature (if applicable): CC: Dr. Donal Castle MD; Dr. Fitz Ryan DO~ Signed [facility] Work Phone: 1(419) 429-544605-09-2025 Progress note Author Fitz Ryan [facility] Note Date/Time March 23, 2025 11:17a m [facility] Medical Records Department [address] [place] [address] Progress Note - Hospitalist 03/23/25 0740 MR#: [id number] Acct: [id number] Name: MISAEL MEDINA Rep #:[id number] : 1950 74 From: Fitz Ryan DO PCP: Dr. Donal Castle MD Status:ADM IN Location: [place] [address] Reason for Visit Reason for Visit: Diagnoses Type 2 diabetes mellitus with diabetic polyneuropathy (03/13/25) Hyperkalemia (03/13/25) Essential (primary) hypertension (03/13/25) Pulmonary hypertension, unspecified (03/13/25) Nonrheumatic aortic (valve) stenosis (03/13/25) Acute on chronic systolic (congestive) heart failure (03/13/25) Non-pressure chronic ulcer of other part of right foot with necrosis of bone (03/13/25) Other acute osteomyelitis, right ankle and foot (03/13/25) Osteomyelitis, unspecified (03/13/25) Acute kidney failure, unspecified (03/13/25) Chronic kidney disease, stage 3a (03/13/25) Chronic kidney disease, stage 3b (03/13/25) Chronic kidney disease, unspecified (03/13/25) Hemorrhage, not elsewhere classified (03/13/25) 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 (03/13/25) Subjective Subjective Denies complaints. Objective Data Objective Data Vital Signs: Vital Signs Temp Pulse Resp BP Pulse Ox O2 Del Method O2 Flow Rate 36.8 C 60 20 H 107/64 99 Nasal Cannula 2 03/23/25 07:00 03/23/25 07:00 03/23/25 07:00 03/23/25 07:00 03/23/25 07:00 03/23/25 07:00 03/23/25 07:00 Oxygen Flow Rate (L/min) 2 Oxygen Delivery Method Nasal Cannula Weight: 117.2 kg Body Mass Index (BMI) 50.7 Intake & Output: Intake and Output for Last 24 Hours 03/21/25 03/22/25 03/23/25 23:59 23:59 23:59 Intake Total 312 / 312 512 / 512 Output Total 5220 / 5320 150 / 150 Balance -4908 / -5008 362 / 362 Lab / Micro Data 03/23/25 04:42 03/23/25 04:42 Labs: Laboratory Results - last 24 hr 03/22/25 11:24: POC Glucose 137 H 03/22/25 17:39: POC Glucose 136 H 03/22/25 20:12: POC Glucose 182 H 03/23/25 04:42: WBC 7.5, RBC 3.77 L, Hgb 9.8 L, Hct 34.2 L, MCV 90.7, MCH 26.0 L, MCHC 28.7 L, RDW Std Deviation 57.6 H, RDW Coeff of Leif 17.2 H, Plt Count 182,MPV 10.2, Sodium 135, Potassium 4.0, Chloride 102, Carbon Dioxide 21.2, Anion Gap 12, BUN 48 H, Creatinine 4.76 H, Estim Creat Clear Calc 12.14 L, Est GFR (MDRD) Non-Af 9 L, BUN/Creatinine Ratio 10.1, Glucose 130 H, Calcium 8.0 03/23/25 06:05: POC Glucose 119 H Micro: Microbiology 03/19/25 12:50 Bone - Great Toe Gram Stain - Final 03/19/25 12:50 Bone - Great Toe Wound Culture - Preliminary Gram Positive Cocci Staphylococcus aureus GPC Poss Enterococcus sp Gram positive clinton 03/19/25 12:50 Bone - Great Toe Anaerobic Culture - Preliminary 03/19/25 12:50 Wound - Aerobic Swab Gram Stain - Final 03/19/25 12:50 Wound - Aerobic Swab Wound Culture - Preliminary Staphylococcus epidermidis Staphylococcus aureus GPC Poss Enterococcus sp 03/16/25 09:25 Wound - Toe Gram Stain - Final 03/16/25 09:25 Wound - Toe Wound Culture - Final Enterococcus casseliflavus (D) Enterococcus avium Gram positive clinton 03/14/25 18:00 Urine Catheter - Catheter Urine Culture - Final Culture exhibits no growth. Physical Exam Const alert and no apparent distress Constitutional Narrative: seen on HD. Resp normal respiratory effort, no retractions, no use of accessory muscles and clearto auscultation bilaterally Cardio regular rate, regular rhythm, S1 normal heart sound and S2 normal heart sound GI normal to inspection, nondistended, normoactive bowel sounds, soft to palpation and non-tender GI Narrative: abdominal wall edema. Extremity General Extremity: edema bilateral lower extremity Details: severe Neuro Sensorium / Orientation: awake and alert Assessment & Plan Assessment/Plan (1) Acute on chronic renal failure: QUALIFIERS: Acute renal failure type: unspecified Chronic kidney disease stage: stage 3 (moderate) Chronic kidney disease stage 3 subtype: aizpe0f (GFR 45-59) Qualified Code(s): N17.9 - Acute kidney failure, unspecified; N18.31 - Chronic kidney disease, stage 3a PLAN: Tunneled dialysis cath placed 03/16. Now on HD nephrology following. kidney biopsy performed. DW Dr. Grande, preliminary looks like ATN. (2) Congestive heart failure: QUALIFIERS: Heart failure chronicity: acute on chronic Heart failure type: systolic Qualified Code(s): I50.23 - Acute on chronic systolic (congestive) heart failure PLAN: acute HFrEF. EF 30% from echo on 12/12 Further fluid removal via dialysis. (3) Right hallux osteomyelitis: PLAN: present on arrival. Patient underwent amputation on March 19. podiatry following on Amp/SB. Seen by ID and recommended 1 week amox/CA 250 BID. Wound culture from the second showed Enterococcus and Enterococcus Avium As WellAs a Gram-Positive Clinton. Wound Cultures from March 19 Currently Pending. (4) Ecchymosis: PLAN: unclear etiology. Hemoglobin stable. Monitor. Pt denies antecedent trauma. PLAN: Plan Chronic conditions: * DM2: SSI. * hypothyroidism: levothyroxine * obesity class III: complicates care and recovery. VTE prophylaxis: SQ heparin. Disposition: to [facility]. 03/23/25 1309 <Electronically signed by Fitz Ryan DO> Cosigner Signature (if applicable): CC: ~ Signed [facility] Work Phone: 1(193) 926-524805-09-2025 Discharge summary [facility] Medical Records Department [address] [place] [address] Discharge Summary 03/23/25 1124 MR#: [id number] Acct: [id number] Name: MISAEL MEDINA Rep #:[id number] : 1950 74 From: Fitz Ryan DO PCP: Dr. Donal Castle MD Status:ADM IN Location: [place] [address] Providers Date of Admission: 03/13/25 Primary Care Physician: Donal Castle MD Consultations 03/13/25 19:49 Consult: Cardiology Routine Consulting Provider: Bandar Linares Reason for Consult: CHF with elevated troponin EMERGENT Consult: No MD Notified: Yes Date Notified: 03/13/25 Time Notified: 18:38 Method of Notification: Verbal Consult: Nephrology Routine Consulting Provider: Lorraine Grande Reason for Consult: Acute renal failure EMERGENT Consult: No MD Notified: Yes Date Notified: 03/13/25 Time Notified: 23:40 Method of Notification: Answering Service 03/15/25 09:41 Consult: General Surgery Routine Consulting Provider: Joao Francois Reason for Consult: tunneled HD line placement EMERGENT Consult: No Notified: Yes Date Notified: 03/15/25 Time Notified: 10:05 Method of Notification: Text 03/15/25 19:23 Consult: Onc/Wound/auto bumper mechanic Routine Comment: Comments:: Right great toe necrotic ulcer 03/16/25 09:36 Consult: Podiatry Routine Consulting Provider: Lucas Coronado Reason for Consult: right great toe wound EMERGENT Consult: No MD Notified: Yes Date Notified: 03/16/25 Time Notified: 09:36 Method of Notification: Text 03/20/25 08:52 Consult: Infectious Disease Routine Consulting Provider: Oswald Bonds Reason for Consult: R toe osteo, cultures thusfar polymicrobial, pod rec'd IDc/s for abx mngmt EMERGENT Consult: No Notified: Yes Date Notified: 03/20/25 Time Notified: 08:52 Method of Notification: Text Reason For Visit: ABNORMAL LABS Diagnosis Discharge Diagnosis (1) Acute on chronic renal failure: Status: Chronic Code(s): N17.9 - Acute kidney failure, unspecified; N18.9 - Chronic kidney disease, unspecified Qualifiers: Acute renal failure type: unspecified Chronic kidney disease stage: stage 3 (moderate) Chronic kidney disease stage 3 subtype: stage 3a (GFR 45-59) Qualified Code(s): N17.9 - Acute kidney failure, unspecified; N18.31 - Chronic kidney disease, stage 3a Plan: Tunneled dialysis cath placed 03/16. Now on HD nephrology following. kidney biopsy performed. DW Dr. Grande, preliminary looks like ATN. (2) Congestive heart failure: Status: Acute Code(s): I50.9 - Heart failure, unspecified Qualifiers: Heart failure type: systolic Heart failure chronicity: acute on chronic Qualified Code(s): I50.23 -Acute on chronic systolic (congestive) heart failure Plan: acute HFrEF. EF 30% from echo on 12/12 Further fluid removal via dialysis. Still very edematous. (3) Right hallux osteomyelitis: Status: Acute Code(s): M86.9 - Osteomyelitis, unspecified Plan: present on arrival. Patient underwent amputation on March 19. podiatry following on Amp/SB. Seen by ID and recommended 1 week amox/CA 250 BID and doxycycline. Wound culture from the second showed Enterococcus and Enterococcus Avium As WellAs a Gram-Positive Clinton. Wound Cultures from March 19 Currently Pending. (4) Ecchymosis: Status: Acute Code(s): R58 - Hemorrhage, not elsewhere classified Plan: unclear etiology. Hemoglobin stable. Monitor. Pt denies antecedent trauma. Plan Chronic conditions: * DM2: SSI. * hypothyroidism: levothyroxine * obesity class III: complicates care and recovery. VTE prophylaxis: SQ heparin. Disposition: to SNF. Medications at Discharge Home Medications atorvastatin 10 mg tablet 10 mg PO QHS cholesterol 08/31/22 levothyroxine 100 mcg tablet (Synthroid) 100 mcg PO DAILY thyroid 08/31/22 aspirin 81 mg chewable tablet 81 mg PO DAILYCM 90 days #90 tabs 10/21/24 carvedilol 6.25 mg tablet (Coreg) 6.25 mg PO BID #60 tabs 12/01/24 furosemide 40 mg tablet 40 mg PO QAM #30 tabs 03/12/25 amoxicillin 250 mg-potassium clavulanate 125 mg tablet 1 tab PO BID 39 days #78 tabs 03/22/25 doxycycline monohydrate 100 mg capsule 100 mg PO BID 39 days #78 caps 03/22/25 Hospital Course Operations - Procedures Central line placement (tunnelled hemodialysis catheter placement. ) and Dialysis Summary of Care Provided Minutes Spent on Discharge: 32 Hospital Course: Patient presents with heart failure compounded by kidney disease. Since the patient required dialysis and had a tunneled dialysis catheter placed and was started on hemodialysis with large volume of fluid removed with patient was still very edematous with profound edema in her lower extremities up into her abdomen. Patient also had osteomyelitis of her great toe which was amputated onMay 5. Patient be discharged with Augmentin as well as doxycycline. Patient was seen in consultation by infectious disease. Patient will need to continue with dialysis at least in the short-term but more likely in the long-term. Interestingly while she was here she did develop ecchymosis in her shoulders bilaterally. There was no trauma. Patient did have a hemodialysis catheter placed on her right but she also had ecchymosis on her left shoulder. Is unclear what happened but her hemoglobin has remained stable here. Weight / BMI Weight Weight: 113.7 kg Body Mass Index (BMI) 49.2 ABG / Lab / Microbiology Data 03/23/25 04:42 03/23/25 04:42 Laboratory: Laboratory Results - last 24 hr 03/22/25 11:24: POC Glucose 137 H 03/22/25 17:39: POC Glucose 136 H 03/22/25 20:12: POC Glucose 182 H 03/23/25 04:42: WBC 7.5, RBC 3.77 L, Hgb 9.8 L, Hct 34.2 L, MCV 90.7, MCH 26.0 L, MCHC 28.7 L, RDW Std Deviation 57.6 H, RDW Coeff of Leif 17.2 H, Plt Count 182,MPV 10.2, Sodium 135, Potassium 4.0, Chloride 102, Carbon Dioxide 21.2, Anion Gap 12, BUN 48 H, Creatinine 4.76 H, Estim Creat Clear Calc 12.14 L, Est GFR (MDRD) Non-Af 9 L, BUN/Creatinine Ratio 10.1, Glucose 130 H, Calcium 8.0 03/23/25 06:05: POC Glucose 119 H Microbiology: Microbiology 03/19/25 12:50 Wound - Aerobic Swab Gram Stain - Final 03/19/25 12:50 Wound - Aerobic Swab Wound Culture - Preliminary Staphylococcus epidermidis Staphylococcus aureus GPC Poss Enterococcus sp 03/19/25 12:50 Wound - Aerobic Swab Anaerobic Culture - Final No anaerobic bacteria isolated. 03/19/25 12:50 Bone - Great Toe Gram Stain - Final 03/19/25 12:50 Bone - Great Toe Wound Culture - Final Staphylococcus haemolyticus Meth. resistant Staph. aureus Enterococcus faecalis Corynebacterium amycolatum 03/19/25 12:50 Bone - Great Toe Anaerobic Culture - Preliminary 03/16/25 09:25 Wound - Toe Gram Stain - Final 03/16/25 09:25 Wound - Toe Wound Culture - Final Enterococcus casseliflavus (D) Enterococcus avium Gram positive clinton 03/14/25 18:00 Urine Catheter - Catheter Urine Culture - Final Culture exhibits no growth. D/C Instructions Discharge Diet: Renal Diet DC O2, CPAP, BIPAP Needs Home O2 Discharge instructions: Yes Type of respiratory needs?: Oxygen Oxygen frequency: ContinuousContinuous oxygen liters per minute: 2 DC home with Oxygen: Yes Home O2 MD Review: I have reviewed the oxygen testing, and the patient qualifies for home oxygen equipment and portability. The patient is mobile in the home and the community. Meaningful Use Info Meaningful Use Meaningful Use Diagnoses (Choose all that apply): None applicable Ischemic Stroke Statin Dosing Therapy Reference: STATIN DOSE THERAPY REFERENCE: * Patients > 75 years receive moderate or high dose statin therapy. * Patients 75 years or YOUNGER should receive HIGH intensity statin dose unless contraindicated. You will be required to document reason for non-treatment if statin daily dose does not meet guidelines. 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 for Kidney Biopsy Discharge Orders/Prescriptions Prescriptions: New doxycycline monohydrate 100 mg Capsule 100 mg PO BID 39 Days Qty: 78 0RF amoxicillin-pot clavulanate 250-125 mg tablet 1 tab PO BID 39 Days Qty: 78 0RF Continued levothyroxine [Synthroid] 100 mcg tablet 100 mcg PO DAILY atorvastatin 10 mg tablet 10 mg PO QHS carvedilol [Coreg] 6.25 mg tablet 6.25 mg PO BID Qty: 60 11RF Rx Instructions: must administer with a meal/food furosemide 40 mg tablet 40 mg PO QAM Qty: 30 0RF aspirin 81 mg Tablet,Chewable 81 mg PO DAILYCM 90 Days Qty: 90 0RF Discontinued metformin 500 mg tablet 500 mg PO BID dapagliflozin propanediol [Farxiga] 10 mg tablet 10 mg PO QDAY Qty: 30 3RF Patient Comments: PT HAS NOT PICKED UP YET Referrals / Follow Up: Donal Castle MD [Primary Care Provider] - Disposition Disposition (needs filled in before D/C Order can be placed): Group Home Facility Charges/Coding Visit Charges Inpatient E&M: 52143 Disch Hosp >30min 03/23/25 1129 Cosigner Signature (if applicable): CC: Dr. Donal Castle MD; Dr. Fitz Ryan DO~ Signed [facility]05-09-2025 Discharge summary [facility] Medical Records Department [address] [place] [id number] Transfer to [facility] MR#: [id number] Acct: [id number] Name: MISAEL MEDINA Rep #:[id number] : 1950 74 From: Fitz Ryan DO PCP: Dr. Donal Castle MD Status:ADM IN Certification of patient admission REQUIRED AT TIME OF ADMISSION. I CERTIFY THAT POST-HOSPITAL ECF SERVICES ARE REQUIRED TO BE GIVEN ON AN IN-PATIENT BASIS BECAUSE OF THE ABOVE NAMED PATIENT'S NEED FOR SNF CARE ON A CONTINUING BASIS FOR THE CONDITION(S) FOR WHICH HE/SHE WAS RECEIVING IN-PATIENT HOSPITAL SERVICES PRIOR TO HIS/HER TRANSFER TO THE F. 03/23/25 1124 Diet Diet Order/Speech Therapy: 03/20/25 11:27 Diet: Renal - General Dietary Modifications:: Consistent Carbohydrate Type of Dietary Supplement:: Cornell Diet Comments: Cornell with breakfast and dinner Routine Orders/Code Status Routine Lab Work: CBC (weekly) and BMP (weekly) Code Status: Full Code DC O2, CPAP, BIPAP needs Home O2 Discharge instructions: Yes Type of respiratory needs?: Oxygen Oxygen frequency: ContinuousContinuous oxygen liters per minute: 2 Wound(s) Right Great Toe: Wound Type: s/p amputation right hallux Dressing Change: betadine Adaptic Left 2nd toe: Wound Type: small scab right chest: Wound Type: dialysis catheter RIGHT FOOT: Wound Type: Surgical Incision L abdomen: Wound Type: Puncture Problem/Diagnosis (1) Acute on chronic renal failure: Status: Chronic Code(s): N17.9 - Acute kidney failure, unspecified; N18.9 - Chronic kidney disease, unspecified Plan: Tunneled dialysis cath placed 03/16. Now on HD nephrology following. kidney biopsy performed. DW Dr. Grande, preliminary looks like ATN. (2) Congestive heart failure: Status: Acute Code(s): I50.9 - Heart failure, unspecified Plan: acute HFrEF. EF 30% from echo on 12/12 Further fluid removal via dialysis. (3) Right hallux osteomyelitis: Status: Acute Code(s): M86.9 - Osteomyelitis, unspecified Plan: present on arrival. Patient underwent amputation on March 19. podiatry following on Amp/SB. Seen by ID and recommended 1 week amox/CA 250 BID. Wound culture from the second showed Enterococcus and Enterococcus Avium As WellAs a Gram-Positive Clinton. Wound Cultures from March 19 Currently Pending. (4) Ecchymosis: Status: Acute Code(s): R58 - Hemorrhage, not elsewhere classified Plan: unclear etiology. Hemoglobin stable. Monitor. Pt denies antecedent trauma. Plan Chronic conditions: * DM2: SSI. * hypothyroidism: levothyroxine * obesity class III: complicates care and recovery. VTE prophylaxis: SQ heparin. Disposition: to SNF. Allergies/Procedures Done in Hospital Allergies No Known Allergies Allergy (Verified 03/13/25 13:58) Procedures: Dialysis Type of Care/Length of Stay Estimated LOS: Convalescent Care Less Than 30 days Type of Care Needed: Skilled Rehab Potential: Fair Prognosis: Fair Additional Orders/Day of Discharge Day of Discharge: 03/23/25 Dietary and Speech Recommendations Dietitian Recommendations/Changes: Adjust to renal general, consistent carbohydrate. Will order cornell BID with breakfast and dinner to promote wound healing. Jason monitor weight trends. 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 for Kidney Biopsy Discharge Orders/Prescriptions Prescriptions: New doxycycline monohydrate 100 mg Capsule 100 mg PO BID 39 Days Qty: 78 0RF amoxicillin-pot clavulanate 250-125 mg tablet 1 tab PO BID 39 Days Qty: 78 0RF Continued levothyroxine [Synthroid] 100 mcg tablet 100 mcg PO DAILY atorvastatin 10 mg tablet 10 mg PO QHS carvedilol [Coreg] 6.25 mg tablet 6.25 mg PO BID Qty: 60 11RF Rx Instructions: must administer with a meal/food furosemide 40 mg tablet 40 mg PO QAM Qty: 30 0RF aspirin 81 mg Tablet,Chewable 81 mg PO DAILYCM 90 Days Qty: 90 0RF Discontinued metformin 500 mg tablet 500 mg PO BID dapagliflozin propanediol [Farxiga] 10 mg tablet 10 mg PO QDAY Qty: 30 3RF Patient Comments: PT HAS NOT PICKED UP YET Referrals / Follow Up: Donal Castle MD [Primary Care Provider] - Disposition Disposition (needs filled in before D/C Order can be placed): Group Home Facility (1) Acute on chronic renal failure Qualifiers: Acute renal failure type: unspecified Chronic kidney disease stage: stage 3 (moderate) Chronic kidney disease stage 3 subtype: stage 3a (GFR 45-59) Qualified Code(s): N17.9 - Acute kidney failure, unspecified; N18.31 - Chronic kidney disease, stage 3a (2) Congestive heart failure Qualifiers: Heart failure type: systolic Heart failure chronicity: acute on chronic Qualified Code(s): I50.23 -Acute on chronic systolic (congestive) heart failure 03/23/25 1124 Cosigner Signature (if applicable): CC: DPM Dr. Lucas Coronado; Dr. Seth Garnica DO; Dr. Donal Castle MD; Dr. Fitz Ryan DO;Dr. Lorraine Grande MD; Dr. Joao Francois MD; Dr. Bandar Linares MD; Dr. Milton Muñoz MD; Dr. Aparna Mabry MD; Dr.Robert Cammie MD ~ [facility]05-09-2025 [facility]05-09-2025 Progress note [facility] Medical Records Department [address] [place] [address] Progress Note - Hospitalist 03/23/25 0740 MR#: [id number] Acct: [id number] Name: MISAEL MEDINA Rep #:[id number] : 1950 74 From: Fitz Ryan DO PCP: Dr. Donal Castle MD Status:ADM IN Location: [place] [address] Reason for Visit Reason for Visit: Diagnoses Type 2 diabetes mellitus with diabetic polyneuropathy (03/13/25) Hyperkalemia (03/13/25) Essential (primary) hypertension (03/13/25) Pulmonary hypertension, unspecified (03/13/25) Nonrheumatic aortic (valve) stenosis (03/13/25) Acute on chronic systolic (congestive) heart failure (03/13/25) Non-pressure chronic ulcer of other part of right foot with necrosis of bone (03/13/25) Other acute osteomyelitis, right ankle and foot (03/13/25) Osteomyelitis, unspecified (03/13/25) Acute kidney failure, unspecified (03/13/25) Chronic kidney disease, stage 3a (03/13/25) Chronic kidney disease, stage 3b (03/13/25) Chronic kidney disease, unspecified (03/13/25) Hemorrhage, not elsewhere classified (03/13/25) 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 Objective Data Objective Data Vital Signs: Vital Signs Temp Pulse Resp BP Pulse Ox O2 Del Method O2 Flow Rate 36.8 C 60 20 H 107/64 99 Nasal Cannula 2 03/23/25 07:00 03/23/25 07:00 03/23/25 07:00 03/23/25 07:00 03/23/25 07:00 03/23/25 07:00 03/23/25 07:00 Oxygen Flow Rate (L/min) 2 Oxygen Delivery Method Nasal Cannula Weight: 117.2 kg Body Mass Index (BMI) 50.7 Intake & Output: Intake and Output for Last 24 Hours 03/21/25 03/22/25 03/23/25 23:59 23:59 23:59 Intake Total 312 / 312 512 / 512 Output Total 5220 / 5320 150 / 150 Balance -4908 / -5008 362 / 362 Lab / Micro Data 03/23/25 04:42 03/23/25 04:42 Labs: Laboratory Results - last 24 hr 03/22/25 11:24: POC Glucose 137 H 03/22/25 17:39: POC Glucose 136 H 03/22/25 20:12: POC Glucose 182 H 03/23/25 04:42: WBC 7.5, RBC 3.77 L, Hgb 9.8 L, Hct 34.2 L, MCV 90.7, MCH 26.0 L, MCHC 28.7 L, RDW Std Deviation 57.6 H, RDW Coeff of Leif 17.2 H, Plt Count 182,MPV 10.2, Sodium 135, Potassium 4.0, Chloride 102, Carbon Dioxide 21.2, Anion Gap 12, BUN 48 H, Creatinine 4.76 H, Estim Creat Clear Calc 12.14 L, Est GFR (MDRD) Non-Af 9 L, BUN/Creatinine Ratio 10.1, Glucose 130 H, Calcium 8.0 03/23/25 06:05: POC Glucose 119 H Micro: Microbiology 03/19/25 12:50 Bone - Great Toe Gram Stain - Final 03/19/25 12:50 Bone - Great Toe Wound Culture - Preliminary Gram Positive Cocci Staphylococcus aureus GPC Poss Enterococcus sp Gram positive clinton 03/19/25 12:50 Bone - Great Toe Anaerobic Culture - Preliminary 03/19/25 12:50 Wound - Aerobic Swab Gram Stain - Final 03/19/25 12:50 Wound - Aerobic Swab Wound Culture - Preliminary Staphylococcus epidermidis Staphylococcus aureus GPC Poss Enterococcus sp 03/16/25 09:25 Wound - Toe Gram Stain - Final 03/16/25 09:25 Wound - Toe Wound Culture - Final Enterococcus casseliflavus (D) Enterococcus avium Gram positive clinton 03/14/25 18:00 Urine Catheter - Catheter Urine Culture - Final Culture exhibits no growth. Physical Exam Const alert and no apparent distress Constitutional Narrative: seen on HD. Resp normal respiratory effort, no retractions, no use of accessory muscles and clearto auscultation bilaterally Cardio regular rate, regular rhythm, S1 normal heart sound and S2 normal heart sound GI normal to inspection, nondistended, normoactive bowel sounds, soft to palpation and non-tender GI Narrative: abdominal wall edema. Extremity General Extremity: edema bilateral lower extremity Details: severe Neuro Sensorium / Orientation: awake and alert Assessment & Plan Assessment/Plan (1) Acute on chronic renal failure: QUALIFIERS: Acute renal failure type: unspecified Chronic kidney disease stage: stage 3 (moderate) Chronic kidney disease stage 3 subtype: [id number] (GFR 45-59) Qualified Code(s): N17.9 - Acute kidney failure, unspecified; N18.31 - Chronic kidney disease, stage 3a PLAN: Tunneled dialysis cath placed 03/16. Now on HD nephrology following. kidney biopsy performed. DW Dr. Grande, preliminary looks like ATN. (2) Congestive heart failure: QUALIFIERS: Heart failure chronicity: acute on chronic Heart failure type: systolic Qualified Code(s): I50.23 - Acute on chronic systolic (congestive) heart failure PLAN: acute HFrEF. EF 30% from echo on 12/12 Further fluid removal via dialysis. (3) Right hallux osteomyelitis: PLAN: present on arrival. Patient underwent amputation on March 19. podiatry following on Amp/SB. Seen by ID and recommended 1 week amox/CA 250 BID. Wound culture from the second showed Enterococcus and Enterococcus Avium As WellAs a Gram-Positive Clinton. Wound Cultures from March 19 Currently Pending. (4) Ecchymosis: PLAN: unclear etiology. Hemoglobin stable. Monitor. Pt denies antecedent trauma. PLAN: Plan Chronic conditions: * DM2: SSI. * hypothyroidism: levothyroxine * obesity class III: complicates care and recovery. VTE prophylaxis: SQ heparin. Disposition: to [facility]. 03/23/25 1117 Cosigner Signature (if applicable): CC: ~ Signed [facility]05-08-2025 Progress note Author Fitz Ryan [facility] Note Date/Time March 22, 2025 4:35pm [facility] Medical Records Department [address] [place] [address] Progress Note - Hospitalist 03/22/25827 MR#: [id number] Acct: [id number] Name: MISAEL MEDINA Rep #:[id number] : 1950 74 From: Fitz Ryan DO PCP: Dr. Donal Castle MD Status:ADM IN Location: [place] [address] Reason for Visit Reason for Visit: Diagnoses Type 2 diabetes mellitus with diabetic polyneuropathy (03/13/25) Hyperkalemia (03/13/25) Essential (primary) hypertension (03/13/25) Pulmonary hypertension, unspecified (03/13/25) Nonrheumatic aortic (valve) stenosis (03/13/25) Acute on chronic systolic (congestive) heart failure (03/13/25) Non-pressure chronic ulcer of other part of right foot with necrosis of bone (03/13/25) Other acute osteomyelitis, right ankle and foot (03/13/25) Osteomyelitis, unspecified (03/13/25) Acute kidney failure, unspecified (03/13/25) Chronic kidney disease, stage 3a (03/13/25) Chronic kidney disease, stage 3b (03/13/25) Chronic kidney disease, unspecified (03/13/25) 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 Still with LE edema. Objective Data Objective Data Vital Signs: Vital Signs Temp Pulse Resp BP Pulse Ox O2 Del Method O2 Flow Rate 36.6 C 67 18 105/67 94 Nasal Cannula 3 03/22/25 04:06 03/22/25 04:06 03/22/25 04:06 03/22/25 04:06 03/22/25 04:06 03/22/25 04:06 03/22/25 04:06 Oxygen Flow Rate (L/min) 3 Oxygen Delivery Method Nasal Cannula Weight: 123.06 kg Body Mass Index (BMI) 53.2 Intake & Output: Intake and Output for Last 24 Hours 03/20/25 03/21/25 03/22/25 23:59 23:59 23:59 Intake Total 662 / 862 312 / 312 Output Total 50 / 100 5220 / 5320 100 / 100 Balance 612 / 762 -4908 / -5008 -100 / -100 Lab / Micro Data 03/22/25 06:50 03/22/25 06:50 Labs: Laboratory Results - last 24 hr 03/21/25 09:24: POC Glucose 96 03/21/25 13:37: POC Glucose 94 03/21/25 19:04: POC Glucose 120 H 03/21/25 23:31: POC Glucose 105 03/22/25 06:39: POC Glucose 96 03/22/25 06:50: WBC 8.4, RBC 4.04 L, Hgb 10.3 L, Hct 36.4 L, MCV 90.1, MCH 25.5 L, MCHC 28.3 L, RDW Std Deviation 56.2 H, RDW Coeff of Leif 17.1 H, Plt Count 169, MPV 9.6, Sodium 136, Potassium 4.2, Chloride 102, Carbon Dioxide 22.9, Anion Gap 11, BUN 40 H, Creatinine 4.13 H, Estim Creat Clear Calc 14.44 L, Est GFR (MDRD) Non-Af 11 L, BUN/Creatinine Ratio 9.7 L, Glucose 87, Calcium 8.1 Micro: Microbiology 03/19/25 12:50 Wound - Aerobic Swab Gram Stain - Final 03/19/25 12:50 Wound - Aerobic Swab Wound Culture - Preliminary Gram Positive Cocci 03/19/25 12:50 Wound - Aerobic Swab Anaerobic Culture - Preliminary 03/19/25 12:50 Bone - Great Toe Gram Stain - Final 03/19/25 12:50 Bone - Great Toe Wound Culture - Preliminary 03/16/25 09:25 Wound - Toe Gram Stain - Final 03/16/25 09:25 Wound - Toe Wound Culture - Final Enterococcus casseliflavus (D) Enterococcus avium Gram positive clinton 03/14/25 18:00 Urine Catheter - Catheter Urine Culture - Final Culture exhibits no growth. Physical Exam Const alert and no apparent distress Constitutional Narrative: up in chair. NAD. HEENT head/scalp atraumatic and moist oral mucous membranes Resp normal respiratory effort, no retractions, no use of accessory muscles and clearto auscultation bilaterally Cardio regular rate, regular rhythm, S1 normal heart sound and S2 normal heart sound GI normal to inspection, nondistended, normoactive bowel sounds, soft to palpation,non-tender and non-distended Extremity normal to inspection Skin Skin Narrative: bruising anterior shoulder with right extending posteriorly. Neuro Sensorium / Orientation: awake and alert Assessment & Plan Assessment/Plan (1) Acute on chronic renal failure: QUALIFIERS: Acute renal failure type: unspecified Chronic kidney disease stage: stage 3 (moderate) Chronic kidney disease stage 3 subtype: [id number] (GFR 45-59) Qualified Code(s): N17.9 - Acute kidney failure, unspecified; N18.31 - Chronic kidney disease, stage 3a PLAN: Tunneled dialysis cath placed 03/16. Now on HD nephrology following. kidney biopsy performed. DW Dr. Grande, preliminary looks like ATN. (2) Congestive heart failure: QUALIFIERS: Heart failure chronicity: acute on chronic Heart failure type: systolic Qualified Code(s): I50.23 - Acute on chronic systolic (congestive) heart failure PLAN: acute HFrEF. EF 30% from echo on 12/12 Further fluid removal via dialysis. (3) Right hallux osteomyelitis: PLAN: present on arrival. Patient underwent amputation on March 19. podiatry following on Amp/SB. Seen by ID and recommended 1 week amox/CA 250 BID. Wound culture from the second showed Enterococcus and Enterococcus Avium As WellAs a Gram-Positive Clinton. Wound Cultures from March 19 Currently Pending. (4) Ecchymosis: PLAN: unclear etiology. Hemoglobin stable. Monitor. Pt denies antecedent trauma. PLAN: Plan Chronic conditions: * DM2: SSI. * hypothyroidism: levothyroxine * obesity class III: complicates care and recovery. VTE prophylaxis: SQ heparin. Disposition: to SNF. Charges/Coding Visit Charges Inpatient E&M: 29366 Subs Hosp L2 03/22/25 1635 <Electronically signed by Fitz Ryan DO> Cosigner Signature (if applicable): CC: ~ Signed [facility] Work Phone: 1(804) 455-291605-08-2025 Progress note [facility] Medical Records Department [address] [place] [address] Progress Note - Hospitalist 03/22/25827 MR#: [id number] Acct: [id number] Name: MISAEL MEDINA Rep #:[id number] : 1950 74 From: Fitz Ryan DO PCP: Dr. Donal Caslte MD Status:ADM IN Location: [place] [address] Reason for Visit Reason for Visit: Diagnoses Type 2 diabetes mellitus with diabetic polyneuropathy (03/13/25) Hyperkalemia (03/13/25) Essential (primary) hypertension (03/13/25) Pulmonary hypertension, unspecified (03/13/25) Nonrheumatic aortic (valve) stenosis (03/13/25) Acute on chronic systolic (congestive) heart failure (03/13/25) Non-pressure chronic ulcer of other part of right foot with necrosis of bone (03/13/25) Other acute osteomyelitis, right ankle and foot (03/13/25) Osteomyelitis, unspecified (03/13/25) Acute kidney failure, unspecified (03/13/25) Chronic kidney disease, stage 3a (03/13/25) Chronic kidney disease, stage 3b (03/13/25) Chronic kidney disease, unspecified (03/13/25) 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 Still with LE edema. Objective Data Objective Data Vital Signs: Vital Signs Temp Pulse Resp BP Pulse Ox O2 Del Method O2 Flow Rate 36.6 C 67 18 105/67 94 Nasal Cannula 3 03/22/25 04:06 03/22/25 04:06 03/22/25 04:06 03/22/25 04:06 03/22/25 04:06 03/22/25 04:06 03/22/25 04:06 Oxygen Flow Rate (L/min) 3 Oxygen Delivery Method Nasal Cannula Weight: 123.06 kg Body Mass Index (BMI) 53.2 Intake & Output: Intake and Output for Last 24 Hours 03/20/25 03/21/25 03/22/25 23:59 23:59 23:59 Intake Total 662 / 862 312 / 312 Output Total 50 / 100 5220 / 5320 100 / 100 Balance 612 / 762 -4908 / -5008 -100 / -100 Lab / Micro Data 03/22/25 06:50 03/22/25 06:50 Labs: Laboratory Results - last 24 hr 03/21/25 09:24: POC Glucose 96 03/21/25 13:37: POC Glucose 94 03/21/25 19:04: POC Glucose 120 H 03/21/25 23:31: POC Glucose 105 03/22/25 06:39: POC Glucose 96 03/22/25 06:50: WBC 8.4, RBC 4.04 L, Hgb 10.3 L, Hct 36.4 L, MCV 90.1, MCH 25.5 L, MCHC 28.3 L, RDWStd Deviation 56.2 H, RDW Coeff of Leif 17.1 H, Plt Count 169, MPV 9.6, Sodium 136, Potassium 4.2, Chloride 102, Carbon Dioxide 22.9, Anion Gap 11, BUN 40 H, Creatinine 4.13 H, Estim Creat Clear Calc 14.44 L, Est GFR (MDRD) Non-Af 11 L, BUN/Creatinine Ratio 9.7 L, Glucose 87, Calcium 8.1 Micro: Microbiology 03/19/25 12:50 Wound - Aerobic Swab Gram Stain - Final 03/19/25 12:50 Wound - Aerobic Swab Wound Culture - Preliminary Gram Positive Cocci 03/19/25 12:50 Wound - Aerobic Swab Anaerobic Culture - Preliminary 03/19/25 12:50 Bone - Great Toe Gram Stain - Final 03/19/25 12:50 Bone - Great Toe Wound Culture - Preliminary 03/16/25 09:25 Wound - Toe Gram Stain - Final 03/16/25 09:25 Wound - Toe Wound Culture - Final Enterococcus casseliflavus (D) Enterococcus avium Gram positive clinton 03/14/25 18:00 Urine Catheter - Catheter Urine Culture - Final Culture exhibits no growth. Physical Exam Const alert and no apparent distress Constitutional Narrative: up in chair. NAD. HEENT head/scalp atraumatic and moist oral mucous membranes Resp normal respiratory effort, no retractions, no use of accessory muscles and clearto auscultation bilaterally Cardio regular rate, regular rhythm, S1 normal heart sound and S2 normal heart sound GI normal to inspection, nondistended, normoactive bowel sounds, soft to palpation,non-tender and non-distended Extremity normal to inspection Skin Skin Narrative: bruising anterior shoulder with right extending posteriorly. Neuro Sensorium / Orientation: awake and alert Assessment & Plan Assessment/Plan (1) Acute on chronic renal failure: QUALIFIERS: Acute renal failure type: unspecified Chronic kidney disease stage: stage 3 (moderate) Chronic kidney disease stage 3 subtype: [id number] (GFR 45-59) Qualified Code(s): N17.9 - Acute kidney failure, unspecified; N18.31 - Chronic kidney disease, stage 3a PLAN: Tunneled dialysis cath placed 03/16. Now on HD nephrology following. kidney biopsy performed. DW Dr. Grande, preliminary looks like ATN. (2) Congestive heart failure: QUALIFIERS: Heart failure chronicity: acute on chronic Heart failure type: systolic Qualified Code(s): I50.23 - Acute on chronic systolic (congestive) heart failure PLAN: acute HFrEF. EF 30% from echo on 12/12 Further fluid removal via dialysis. (3) Right hallux osteomyelitis: PLAN: present on arrival. Patient underwent amputation on March 19. podiatry following on Amp/SB. Seen by ID and recommended 1 week amox/CA 250 BID. Wound culture from the second showed Enterococcus and Enterococcus Avium As WellAs a Gram-Positive Clinton. Wound Cultures from March 19 Currently Pending. (4) Ecchymosis: PLAN: unclear etiology. Hemoglobin stable. Monitor. Pt denies antecedent trauma. PLAN: Plan Chronic conditions: * DM2: SSI. * hypothyroidism: levothyroxine * obesity class III: complicates care and recovery. VTE prophylaxis: SQ heparin. Disposition: to SNF. Charges/Coding Visit Charges Inpatient E&M: 50627 Subs Hosp L2 03/22/25 7706 Cosigner Signature (if applicable): CC: ~ Signed [facility]05-08-2025 Progress note Author Lorraine Grande [facility] Note Date/Time March 22, 2025 1:15pm [facility] Medical Records Department [address] [place] [address] Progress Note - Nephrology 03/22/25 1314 MR#: [id number] Acct: [id number] Name: MISAEL MEDINA Rep #:[id number] : 1950 74 From: Lorraine reyez MD PCP: Dr. Donal Castle MD Status:ADM IN Location: [place] [address] Subjective Subjective no new events Objective Data Objective Data Vital Signs: Vital Signs Temp Pulse Resp BP Pulse Ox O2 Del Method O2 Flow Rate 97.5 F L 73 16 126/75 H 93 Nasal Cannula 3 03/22/25 09:00 03/22/25 09:00 03/22/25 09:00 03/22/25 09:00 03/22/25 09:00 03/22/25 10:00 03/22/25 10:00 Oxygen Flow Rate (L/min) 3 Oxygen Delivery Method Nasal Cannula Weight: 123.06 kg Body Mass Index (BMI) 53.2 Intake & Output: Intake and Output for Last 24 Hours 03/20/25 03/21/25 03/22/25 23:59 23:59 23:59 Intake Total 662 / 862 312 / 312 Output Total 50 / 100 5220 / 5320 100 / 100 Balance 612 / 762 -4908 / -5008 -100 / -100 Lab / Micro Data 03/22/25 06:50 03/22/25 06:50 Labs: Laboratory Results - last 24 hr 03/21/25 13:37: POC Glucose 94 03/21/25 19:04: POC Glucose 120 H 03/21/25 23:31: POC Glucose 105 03/22/25 06:39: POC Glucose 96 03/22/25 06:50: WBC 8.4, RBC 4.04 L, Hgb 10.3 L, Hct 36.4 L, MCV 90.1, MCH 25.5 L, MCHC 28.3 L, RDW Std Deviation 56.2 H, RDW Coeff of Leif 17.1 H, Plt Count 169, MPV 9.6, Sodium 136, Potassium 4.2, Chloride 102, Carbon Dioxide 22.9, Anion Gap 11, BUN 40 H, Creatinine 4.13 H, Estim Creat Clear Calc 14.44 L, Est GFR (MDRD) Non-Af 11 L, BUN/Creatinine Ratio 9.7 L, Glucose 87, Calcium 8.1 03/22/25 11:24: POC Glucose 137 H Micro: Microbiology 03/19/25 12:50 Bone - Great Toe Gram Stain - Final 03/19/25 12:50 Bone - Great Toe Wound Culture - Preliminary Gram Positive Cocci Staphylococcus aureus GPC Poss Enterococcus sp Gram positive clinton 03/19/25 12:50 Bone - Great Toe Anaerobic Culture - Preliminary 03/19/25 12:50 Wound - Aerobic Swab Gram Stain - Final 03/19/25 12:50 Wound - Aerobic Swab Wound Culture - Preliminary Staphylococcus epidermidis Staphylococcus aureus GPC Poss Enterococcus sp 03/16/25 09:25 Wound - Toe Gram Stain - Final 03/16/25 09:25 Wound - Toe Wound Culture - Final Enterococcus casseliflavus (D) Enterococcus avium Gram positive clinton 03/14/25 18:00 Urine Catheter - Catheter Urine Culture - Final Culture exhibits no growth. Physical Exam Narrative Alert and oriented x 3, no apparent distress S1, S2, RRR Diminished breath sounds Abdomen soft, nontender Edema bilateral lower legs Tunneled hemodialysis catheter dressing C/D/I; accessed for hemodialysis Const alert, oriented x3 and no apparent distress Nutritional Appearance: morbidly obese HEENT normocephalic Neck no lymphadenopathy Resp no use of accessory muscles Auscultation: diminished lung sounds Cardio no murmurs GI non-tender and non-distended Auscultation: normoactive bowel sounds Assessment & Plan Assessment/Plan (1) Acute on chronic renal failure: QUALIFIERS: Acute renal failure type: unspecified Chronic kidney disease stage: stage 3 (moderate) Chronic kidney disease stage 3 subtype: [id number] (GFR 45-59) Qualified Code(s): N17.9 - Acute kidney failure, unspecified; N18.31 - Chronic kidney disease, stage 3a PLAN: JOSUE superimposed on CKD stage IIIb. Baseline creatinine around 1.7 mg/dL as of December 2024. Renal ultrasound no hydronephrosis. serologies negative called and spoke to pathology at [facility]. mostly ATN. IF negative. no profileration. HD MWF schedule for now she says she is not making much urine HD tomorrow dc plans 03/22/25 1315 <Electronically signed by Lorraine Grande MD> Cosigner Signature (if applicable): CC: ~ Signed [facility] Work Phone: [phone]) 881-992405-08-2025 Progress note [facility] Medical Records Department [address] [place] [address] Progress Note - Nephrology 03/22/25 1314 MR#: [id number] Acct: [id number] Name: MISAEL MEDINA Rep #:[id number] : 1950 74 From: Lorraine reyez MD PCP: Dr. Donal Castle MD Status:ADM IN Location: [address] Subjective Subjective no new events Objective Data Objective Data Vital Signs: Vital Signs Temp Pulse Resp BP Pulse Ox O2 Del Method O2 Flow Rate 97.5 F L 73 16 126/75 H 93 Nasal Cannula 3 03/22/25 09:00 03/22/25 09:00 03/22/25 09:00 03/22/25 09:00 03/22/25 09:00 03/22/25 10:00 03/22/25 10:00 Oxygen Flow Rate (L/min) 3 Oxygen Delivery Method Nasal Cannula Weight: 123.06 kg Body Mass Index (BMI) 53.2 Intake & Output: Intake and Output for Last 24 Hours 03/20/25 03/21/25 03/22/25 23:59 23:59 23:59 Intake Total 662 / 862 312 / 312 Output Total 50 / 100 5220 / 5320 100 / 100 Balance 612 / 762 -4908 / -5008 -100 / -100 Lab / Micro Data 03/22/25 06:50 03/22/25 06:50 Labs: Laboratory Results - last 24 hr 03/21/25 13:37: POC Glucose 94 03/21/25 19:04: POC Glucose 120 H 03/21/25 23:31: POC Glucose 105 03/22/25 06:39: POC Glucose 96 03/22/25 06:50: WBC 8.4, RBC 4.04 L, Hgb 10.3 L, Hct 36.4 L, MCV 90.1, MCH 25.5 L, MCHC 28.3 L, RDWStd Deviation 56.2 H, RDW Coeff of Leif 17.1 H, Plt Count 169, MPV 9.6, Sodium 136, Potassium 4.2, Chloride 102, Carbon Dioxide 22.9, Anion Gap 11, BUN 40 H, Creatinine 4.13 H, Estim Creat Clear Calc 14.44 L, Est GFR (MDRD) Non-Af 11 L, BUN/Creatinine Ratio 9.7 L, Glucose 87, Calcium 8.1 03/22/25 11:24: POC Glucose 137 H Micro: Microbiology 03/19/25 12:50 Bone - Great Toe Gram Stain - Final 03/19/25 12:50 Bone - Great Toe Wound Culture - Preliminary Gram Positive Cocci Staphylococcus aureus GPC Poss Enterococcus sp Gram positive clinton 03/19/25 12:50 Bone - Great Toe Anaerobic Culture - Preliminary 03/19/25 12:50 Wound - Aerobic Swab Gram Stain - Final 03/19/25 12:50 Wound - Aerobic Swab Wound Culture - Preliminary Staphylococcus epidermidis Staphylococcus aureus GPC Poss Enterococcus sp 03/16/25 09:25 Wound - Toe Gram Stain - Final 03/16/25 09:25 Wound - Toe Wound Culture - Final Enterococcus casseliflavus (D) Enterococcus avium Gram positive clinton 03/14/25 18:00 Urine Catheter - Catheter Urine Culture - Final Culture exhibits no growth. Physical Exam Narrative Alert and oriented x 3, no apparent distress S1, S2, RRR Diminished breath sounds Abdomen soft, nontender Edema bilateral lower legs Tunneled hemodialysis catheter dressing C/D/I; accessed for hemodialysis Const alert, oriented x3 and no apparent distress Nutritional Appearance: morbidly obese HEENT normocephalic Neck no lymphadenopathy Resp no use of accessory muscles Auscultation: diminished lung sounds Cardio no murmurs GI non-tender and non-distended Auscultation: normoactive bowel sounds Assessment & Plan Assessment/Plan (1) Acute on chronic renal failure: QUALIFIERS: Acute renal failure type: unspecified Chronic kidney disease stage: stage 3 (moderate) Chronic kidney disease stage 3 subtype: [id number] (GFR 45-59) Qualified Code(s): N17.9 - Acute kidney failure, unspecified; N18.31 - Chronic kidney disease, stage 3a PLAN: JOSUE superimposed on CKD stage IIIb. Baseline creatinine around 1.7 mg/dL as of December 2024.Renal ultrasound no hydronephrosis. serologies negative called and spoke to pathology at [facility]. mostly ATN. IF negative. no profileration. HD MWF schedule for now she says she is not making much urine HD tomorrow dc plans 03/22/25 1315 Cosigner Signature (if applicable): CC: ~ Signed [facility]05-08-2025 Progress note Author Oswald Bonds [facility] Note Date/Time March 22, 2025 10:58a m [facility] Medical Records Department [address] [place] [address] Progress Note - Infect Disease 03/22/25 1051 MR#: [id number] Acct: [id number] Name: MISAEL MEDINA Rep #:[id number] : 1950 74 From: Oswald mcdonald MD PCP: Dr. Donal Castle MD Status:ADM IN Location: [place] [address] Physical Exam Narrative Feeling ok, no fever, pain controlled, no n/v/d. Const alert and no apparent distress General Appearance: cooperative Resp normal air movement and clear to auscultation bilaterally Cardio regular rate and regular rhythm GI soft to palpation, non-tender and non-distended Skin Skin Narrative: no new rash ID ID: Route of nutrition/ use of supplements: [] Nutritional Intake: [] IV Site: [] Underwood Catheter: [] Assessment & Plan Assessment/Plan (1) Right hallux osteomyelitis: PLAN: Wound cx with enterococcus x2, GPR. Now s/p OR 03/19/[address] Coronado for distal r 1st toe amputation. Surg cx now with GPC, staph aureus, MRSE, enterococcus, and GPR. On unasyn. Will add po doxy. Plan is 6 weeks po doxy and augmentin at discharge. 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 Work Phone: 1(571) 745-905205-08-2025 Progress note [facility] Medical Records Department [address] [place] [address] Progress Note - Infect Disease 03/22/25 1051 MR#: [id number] Acct: [id number] Name: MISAEL MEDINA Rep #:[id number] : 1950 74 From: sOwald mcdonald MD PCP: Dr. Donal Castle MD Status:ADM IN Location: [place] [address] Physical Exam Narrative Feeling ok, no fever, pain controlled, no n/v/d. Const alert and no apparent distress General Appearance: cooperative Resp normal air movement and clear to auscultation bilaterally Cardio regular rate and regular rhythm GI soft to palpation, non-tender and non-distended Skin Skin Narrative: no new rash ID ID: Route of nutrition/ use of supplements: [] Nutritional Intake: [] IV Site: [] Underwood Catheter: [] Assessment & Plan Assessment/Plan (1) Right hallux osteomyelitis: PLAN: Wound cx with enterococcus x2, GPR. Now s/p OR 03/19/[address] Coronado for distal r 1st toe amputation. Surg cx now with GPC, staph aureus, MRSE, enterococcus, and GPR. On unasyn. Will add po doxy. Plan is 6 weeks po doxy and augmentin at discharge. 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05-07-2025 Progress note Author Lorraine Grande [facility] Note Date/Time March 21, 2025 6:11pm [facility] Medical Records Department [address] [place] [address] Progress Note - Nephrology 03/21/25 181 MR#: [id number] Acct: [id number] Name: MISAEL MEDINA Rep #:[id number] : 1950 74 From: Lorraine reyez MD PCP: Dr. Donal Castle MD Status:ADM IN Location: [place] [address] 1 Subjective Subjective seen on HD today Objective Data Objective Data Vital Signs: Vital Signs Temp Pulse Resp BP Pulse Ox O2 Del Method O2 Flow Rate 97.8 F 62 16 107/52 L 98 Nasal Cannula 3 03/21/25 14:00 03/21/25 14:00 03/21/25 14:00 03/21/25 14:00 03/21/25 14:00 03/21/25 14:00 03/21/25 14:00 Oxygen Flow Rate (L/min) 3 Oxygen Delivery Method Nasal Cannula Weight: 123.065 kg Body Mass Index (BMI) 53.2 Intake & Output: Intake and Output for Last 24 Hours 03/19/25 03/20/25 03/21/25 23:59 23:59 23:59 Intake Total 360 / 360 662 / 862 200 / 200 Output Total 1410 / 1410 50 / 100 5220 / 5220 Balance -1050 / -1050 612 / 762 -5020 / -5020 Lab / Micro Data 03/21/25 05:33 03/21/25 05:33 Labs: Laboratory Results - last 24 hr 03/20/25 22:00: POC Glucose 156 H 03/21/25 05:33: WBC 8.3, RBC 3.94 L, Hgb 10.1 L, Hct 35.8 L, MCV 90.9, MCH 25.6 L, MCHC 28.2 L, RDW Std Deviation 56.5 H, RDW Coeff of Leif 17.1 H, Plt Count 165, MPV 10.1, Sodium 136, Potassium 4.7, Chloride 103, Carbon Dioxide 18.5 L, Anion Gap 14, BUN 55 H, Creatinine 4.94 H, Estim Creat Clear Calc 12.10 L, Est GFR (MDRD) Non- Af 9 L, BUN/Creatinine Ratio 11.0, Glucose 109 H, Calcium 7.9 03/21/25 06:23: POC Glucose 109 H 03/21/25 09:24: POC Glucose 96 03/21/25 13:37: POC Glucose 94 Micro: Microbiology 03/19/25 12:50 Wound - Aerobic Swab Gram Stain - Final 03/19/25 12:50 Wound - Aerobic Swab Wound Culture - Preliminary Gram Positive Cocci 03/19/25 12:50 Wound - Aerobic Swab Anaerobic Culture - Preliminary 03/19/25 12:50 Bone - Great Toe Gram Stain - Final 03/19/25 12:50 Bone - Great Toe Wound Culture - Preliminary 03/16/25 09:25 Wound - Toe Gram Stain - Final 03/16/25 09:25 Wound - Toe Wound Culture - Final Enterococcus casseliflavus (D) Enterococcus avium Gram positive clinton 03/14/25 18:00 Urine Catheter - Catheter Urine Culture - Final Culture exhibits no growth. Physical Exam Narrative Alert and oriented x 3, no apparent distress S1, S2, RRR Diminished breath sounds Abdomen soft, nontender Edema bilateral lower legs Tunneled hemodialysis catheter dressing C/D/I; accessed for hemodialysis Const alert, oriented x3 and no apparent distress Nutritional Appearance: morbidly obese HEENT normocephalic Neck no lymphadenopathy Resp no use of accessory muscles Auscultation: diminished lung sounds Cardio no murmurs GI non-tender and non-distended Auscultation: normoactive bowel sounds Assessment & Plan Assessment/Plan (1) Acute on chronic renal failure: QUALIFIERS: Acute renal failure type: unspecified Chronic kidney disease stage: stage 3 (moderate) Chronic kidney disease stage 3 subtype: [id number] (GFR 45-59) Qualified Code(s): N17.9 - Acute kidney failure, unspecified; N18.31 - Chronic kidney disease, stage 3a PLAN: JOSUE superimposed on CKD stage IIIb. Baseline creatinine around 1.7 mg/dL as of December 2024. Renal ultrasound no hydronephrosis. serologies negative called and spoke to pathology at [facility]. mostly ATN. IF negative. no profileration. admit to [facility] as JOSUE placement in progress HD today see orders 03/21/251810 <Electronically signed by Lorraine Grande MD> Cosigner Signature (if applicable): CC: ~ Signed [facility] Work Phone: 1(547) 793-614005-07-2025 Progress note [facility] Medical Records Department [address] [place] [address] Progress Note - Nephrology 03/21/251809 MR#: [id number] Acct: [id number] Name: MISAEL MEDINA Rep #:[id number] : 1950 74 From: Lorraine reyez MD PCP: Dr. Donal Castle MD Status:ADM IN Location: [place] [address]- Subjective Subjective seen on HD today Objective Data Objective Data Vital Signs: Vital Signs Temp Pulse Resp BP Pulse Ox O2 Del Method O2 Flow Rate 97.8 F 62 16 107/52 L 98 Nasal Cannula 3 03/21/25 14:00 03/21/25 14:00 03/21/25 14:00 03/21/25 14:00 03/21/25 14:00 03/21/25 14:00 03/21/25 14:00 Oxygen Flow Rate (L/min) 3 Oxygen Delivery Method Nasal Cannula Weight: 123.065 kg Body Mass Index (BMI) 53.2 Intake & Output: Intake and Output for Last 24 Hours 03/19/25 03/20/25 03/21/25 23:59 23:59 23:59 Intake Total 360 / 360 662 / 862 200 / 200 Output Total 1410 / 1410 50 / 100 5220 / 5220 Balance -1050 / -1050 612 / 762 -5020 / -5020 Lab / Micro Data 03/21/25 05:33 03/21/25 05:33 Labs: Laboratory Results - last 24 hr 03/20/25 22:00: POC Glucose 156 H 03/21/25 05:33: WBC 8.3, RBC 3.94 L, Hgb 10.1 L, Hct 35.8 L, MCV 90.9, MCH 25.6 L, MCHC 28.2 L, RDWStd Deviation 56.5 H, RDW Coeff of Leif 17.1 H, Plt Count 165, MPV 10.1, Sodium 136, Potassium 4.7, Chloride 103, Carbon Dioxide 18.5 L, Anion Gap 14, BUN 55 H, Creatinine 4.94 H, Estim Creat Clear Calc 12.10 L, Est GFR (MDRD) Non-Af 9 L, BUN/Creatinine Ratio 11.0, Glucose 109 H, Calcium 7.9 03/21/25 06:23: POC Glucose 109 H 03/21/25 09:24: POC Glucose 96 03/21/25 13:37: POC Glucose 94 Micro: Microbiology 03/19/25 12:50 Wound - Aerobic Swab Gram Stain - Final 03/19/25 12:50 Wound - Aerobic Swab Wound Culture - Preliminary Gram Positive Cocci 03/19/25 12:50 Wound - Aerobic Swab Anaerobic Culture - Preliminary 03/19/25 12:50 Bone - Great Toe Gram Stain - Final 03/19/25 12:50 Bone - Great Toe Wound Culture - Preliminary 03/16/25 09:25 Wound - Toe Gram Stain - Final 03/16/25 09:25 Wound - Toe Wound Culture - Final Enterococcus casseliflavus (D) Enterococcus avium Gram positive clinton 03/14/25 18:00 Urine Catheter - Catheter Urine Culture - Final Culture exhibits no growth. Physical Exam Narrative Alert and oriented x 3, no apparent distress S1, S2, RRR Diminished breath sounds Abdomen soft, nontender Edema bilateral lower legs Tunneled hemodialysis catheter dressing C/D/I; accessed for hemodialysis Const alert, oriented x3 and no apparent distress Nutritional Appearance: morbidly obese HEENT normocephalic Neck no lymphadenopathy Resp no use of accessory muscles Auscultation: diminished lung sounds Cardio no murmurs GI non-tender and non-distended Auscultation: normoactive bowel sounds Assessment & Plan Assessment/Plan (1) Acute on chronic renal failure: QUALIFIERS: Acute renal failure type: unspecified Chronic kidney disease stage: stage 3 (moderate) Chronic kidney disease stage 3 subtype: [id number] (GFR 45-59) Qualified Code(s): N17.9 - Acute kidney failure, unspecified; N18.31 - Chronic kidney disease, stage 3a PLAN: JOSUE superimposed on CKD stage IIIb. Baseline creatinine around 1.7 mg/dL as of December 2024.Renal ultrasound no hydronephrosis. serologies negative called and spoke to pathology at [facility]. mostly ATN. IF negative. no profileration. admit to [facility] as JOSUE placement in progress HD today see orders 03/21/25 1811 Cosigner Signature (if applicable): CC: ~ Signed [facility]05-07-2025 Progress note Author Fitz Ryan [facility] Note Date/Time March 21, 2025 3:09pm [facility] Medical Records Department [address] [place] [address] Progress Note - Hospitalist 03/21/25 0808 MR#: [id number] Acct: [id number] Name: MISAEL MEDINA Rep #:[id number] : 1950 74 From: Fitz Ryan DO PCP: Dr. Donal Castle MD Status:ADM IN Location: [place] [address] 1 Reason for Visit Reason for Visit: Diagnoses Type 2 diabetes mellitus with diabetic polyneuropathy (03/13/25) Hyperkalemia (03/13/25) Essential (primary) hypertension (03/13/25) Pulmonary hypertension, unspecified (03/13/25) Nonrheumatic aortic (valve) stenosis (03/13/25) Acute on chronic systolic (congestive) heart failure (03/13/25) Non-pressure chronic ulcer of other part of right foot with necrosis of bone (03/13/25) Other acute osteomyelitis, right ankle and foot (03/13/25) Osteomyelitis, unspecified (03/13/25) Acute kidney failure, unspecified (03/13/25) Chronic kidney disease, stage 3a (03/13/25) Chronic kidney disease, stage 3b (03/13/25) Chronic kidney disease, unspecified (03/13/25) 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 Objective Data Objective Data Vital Signs: Vital Signs Temp Pulse Resp BP Pulse Ox O2 Del Method O2 Flow Rate 36.4 C L 71 18 107/55 L 96 Nasal Cannula 3 03/21/25 06:15 03/21/25 06:15 03/21/25 06:15 03/21/25 06:15 03/21/25 07:36 03/21/25 07:36 03/21/25 07:36 Oxygen Flow Rate (L/min) 3 Oxygen Delivery Method Nasal Cannula Weight: 123.5 kg Body Mass Index (BMI) 53.4 Intake & Output: Intake and Output for Last 24 Hours 03/19/25 03/20/25 03/21/25 23:59 23:59 23:59 Intake Total 360 / 360 662 / 862 200 / 200 Output Total 1410 / 1410 50 / 100 50 / 50 Balance -1050 / -1050 612 / 762 150 / 150 Lab / Micro Data 03/21/25 05:33 03/21/25 05:33 Labs: Laboratory Results - last 24 hr 03/20/25 12:37: POC Glucose 78 03/20/25 16:52: POC Glucose 151 H 03/20/25 22:00: POC Glucose 156 H 03/21/25 05:33: WBC 8.3, RBC 3.94 L, Hgb 10.1 L, Hct 35.8 L, MCV 90.9, MCH 25.6 L, MCHC 28.2 L, RDW Std Deviation 56.5 H, RDW Coeff of Leif 17.1 H, Plt Count 165, MPV 10.1, Sodium 136, Potassium 4.7, Chloride 103, Carbon Dioxide 18.5 L, Anion Gap 14, BUN 55 H, Creatinine 4.94 H, Estim Creat Clear Calc 12.10 L, Est GFR (MDRD) Non- Af 9 L, BUN/Creatinine Ratio 11.0, Glucose 109 H, Calcium 7.9 03/21/25 06:23: POC Glucose 109 H Micro: Microbiology 03/16/25 09:25 Wound - Toe Gram Stain - Final 03/16/25 09:25 Wound - Toe Wound Culture - Final Enterococcus casseliflavus (D) Enterococcus avium Gram positive clinton 03/19/25 12:50 Bone - Great Toe Gram Stain - Final 03/19/25 12:50 Wound - Aerobic Swab Gram Stain - Final 03/19/25 12:50 Wound - Aerobic Swab Wound Culture - Preliminary 03/14/25 18:00 Urine Catheter - Catheter Urine Culture - Final Culture exhibits no growth. Radiography Diagnostic Testing: Radiology Impression Renal Biopsy Ultrasound 03/20/25 09:35 IMPRESSION: Successful left inferior renal ultrasound guided core biopsy. Laboratory results pending. Reading Location: [place] [address] Physical Exam Const alert and no apparent distress HEENT head/scalp atraumatic and moist oral mucous membranes Resp normal respiratory effort, no retractions, no use of accessory muscles and clearto auscultation bilaterally Cardio regular rate, regular rhythm and S1 normal heart sound GI normal to inspection, nondistended, normoactive bowel sounds, soft to palpation,non-tender and non-distended Extremity General Extremity: edema bilateral lower extremity Details: severe Skin Skin Narrative: ecchymosis on bilateral anterior shoulders. Assessment & Plan Assessment/Plan (1) Acute on chronic renal failure: QUALIFIERS: Acute renal failure type: unspecified Chronic kidney disease stage: stage 3 (moderate) Chronic kidney disease stage 3 subtype: [id number] (GFR 45-59) Qualified Code(s): N17.9 - Acute kidney failure, unspecified; N18.31 - Chronic kidney disease, stage 3a PLAN: Tunneled dialysis cath placed 03/16. Now on HD nephrology following. will need Biopsy at at some point (2) Congestive heart failure: QUALIFIERS: Heart failure chronicity: acute on chronic Heart failure type: systolic Qualified Code(s): I50.23 - Acute on chronic systolic (congestive) heart failure PLAN: acute HFrEF. EF 30% from echo on 12/12 Further fluid removal via dialysis. (3) Right hallux osteomyelitis: PLAN: present on arrival. Patient underwent amputation on March 19. podiatry following on Amp/SB. Seen by ID and recommended 1 week amox/CA 250 BID. Wound culture from the second showed Enterococcus and Enterococcus Avium As WellAs a Gram-Positive Clinton. Wound Cultures from March 19 Currently Pending. PLAN: Plan Chronic conditions: * DM2: SSI. * hypothyroidism: levothyroxine * obesity class III: complicates care and recovery. VTE prophylaxis: SQ heparin. Disposition: to SNF. Charges/Coding Visit Charges Inpatient E&M: 01393 Subs Hosp L2 03/21/25 2067 <Electronically signed by Fitz Ryan DO> Cosigner Signature (if applicable): CC: ~ Signed [facility] Work Phone: 1(706) 129-621505-07-2025 Progress note [facility] Medical Records Department [address] [place] [address] Progress Note - Hospitalist 03/21/25 0808 MR#: [id number] Acct: [id number] Name: MISAEL MEDINA Rep #:[id number] : 1950 74 From: Fitz Ryan DO PCP: Dr. Donal Castle MD Status:ADM IN Location: [place] [address] Reason for Visit Reason for Visit: Diagnoses Type 2 diabetes mellitus with diabetic polyneuropathy (03/13/25) Hyperkalemia (03/13/25) Essential (primary) hypertension (03/13/25) Pulmonary hypertension, unspecified (03/13/25) Nonrheumatic aortic (valve) stenosis (03/13/25) Acute on chronic systolic (congestive) heart failure (03/13/25) Non-pressure chronic ulcer of other part of right foot with necrosis of bone (03/13/25) Other acute osteomyelitis, right ankle and foot (03/13/25) Osteomyelitis, unspecified (03/13/25) Acute kidney failure, unspecified (03/13/25) Chronic kidney disease, stage 3a (03/13/25) Chronic kidney disease, stage 3b (03/13/25) Chronic kidney disease, unspecified (03/13/25) 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 Objective Data Objective Data Vital Signs: Vital Signs Temp Pulse Resp BP Pulse Ox O2 Del Method O2 Flow Rate 36.4 C L 71 18 107/55 L 96 Nasal Cannula 3 03/21/25 06:15 03/21/25 06:15 03/21/25 06:15 03/21/25 06:15 03/21/25 07:36 03/21/25 07:36 03/21/25 07:36 Oxygen Flow Rate (L/min) 3 Oxygen Delivery Method Nasal Cannula Weight: 123.5 kg Body Mass Index (BMI) 53.4 Intake & Output: Intake and Output for Last 24 Hours 03/19/25 03/20/25 03/21/25 23:59 23:59 23:59 Intake Total 360 / 360 662 / 862 200 / 200 Output Total 1410 / 1410 50 / 100 50 / 50 Balance -1050 / -1050 612 / 762 150 / 150 Lab / Micro Data 03/21/25 05:33 03/21/25 05:33 Labs: Laboratory Results - last 24 hr 03/20/25 12:37: POC Glucose 78 03/20/25 16:52: POC Glucose 151 H 03/20/25 22:00: POC Glucose 156 H 03/21/25 05:33: WBC 8.3, RBC 3.94 L, Hgb 10.1 L, Hct 35.8 L, MCV 90.9, MCH 25.6 L, MCHC 28.2 L, RDWStd Deviation 56.5 H, RDW Coeff of Leif 17.1 H, Plt Count 165, MPV 10.1, Sodium 136, Potassium 4.7, Chloride 103, Carbon Dioxide 18.5 L, Anion Gap 14, BUN 55 H, Creatinine 4.94 H, Estim Creat Clear Calc 12.10 L, Est GFR (MDRD) Non-Af 9 L, BUN/Creatinine Ratio 11.0, Glucose 109 H, Calcium 7.9 03/21/25 06:23: POC Glucose 109 H Micro: Microbiology 03/16/25 09:25 Wound - Toe Gram Stain - Final 03/16/25 09:25 Wound - Toe Wound Culture - Final Enterococcus casseliflavus (D) Enterococcus avium Gram positive clinton 03/19/25 12:50 Bone - Great Toe Gram Stain - Final 03/19/25 12:50 Wound - Aerobic Swab Gram Stain - Final 03/19/25 12:50 Wound - Aerobic Swab Wound Culture - Preliminary 03/14/25 18:00 Urine Catheter - Catheter Urine Culture - Final Culture exhibits no growth. Radiography Diagnostic Testing: Radiology Impression Renal Biopsy Ultrasound 03/20/25 09:35 IMPRESSION: Successful left inferior renal ultrasound guided core biopsy. Laboratory results pending. Reading Location: [place] [address] Physical Exam Const alert and no apparent distress HEENT head/scalp atraumatic and moist oral mucous membranes Resp normal respiratory effort, no retractions, no use of accessory muscles and clearto auscultation bilaterally Cardio regular rate, regular rhythm and S1 normal heart sound GI normal to inspection, nondistended, normoactive bowel sounds, soft to palpation,non-tender and non-distended Extremity General Extremity: edema bilateral lower extremity Details: severe Skin Skin Narrative: ecchymosis on bilateral anterior shoulders. Assessment & Plan Assessment/Plan (1) Acute on chronic renal failure: QUALIFIERS: Acute renal failure type: unspecified Chronic kidney disease stage: stage 3 (moderate) Chronic kidney disease stage 3 subtype: [id number] (GFR 45-59) Qualified Code(s): N17.9 - Acute kidney failure, unspecified; N18.31 - Chronic kidney disease, stage 3a PLAN: Tunneled dialysis cath placed 03/16. Now on HD nephrology following. will need Biopsy at at some point (2) Congestive heart failure: QUALIFIERS: Heart failure chronicity: acute on chronic Heart failure type: systolic Qualified Code(s): I50.23 - Acute on chronic systolic (congestive) heart failure PLAN: acute HFrEF. EF 30% from echo on 12/12 Further fluid removal via dialysis. (3) Right hallux osteomyelitis: PLAN: present on arrival. Patient underwent amputation on March 19. podiatry following on Amp/SB. Seen by ID and recommended 1 week amox/CA 250 BID. Wound culture from the second showed Enterococcus and Enterococcus Avium As WellAs a Gram-Positive Clinton. Wound Cultures from March 19 Currently Pending. PLAN: Plan Chronic conditions: * DM2: SSI. * hypothyroidism: levothyroxine * obesity class III: complicates care and recovery. VTE prophylaxis: SQ heparin. Disposition: to SNF. Charges/Coding Visit Charges Inpatient E&M: 57158 Subs Hosp L2 03/21/25 3853 Cosigner Signature (if applicable): CC: ~ Signed [facility]05-06-2025 Progress note Author Aparna Mabry [facility] Note Date/Time March 20, 2025 5:41pm [facility] Medical Records Department [address] [place] [address] Progress Note - Hospitalist 03/20/25 2149 MR#: [id number] Acct: [id number] Name: MISAEL MEDINA Renée Rep #:[id number] : 1950 74 From: Aparna Mabry MD PCP: Dr. Donal Castle MD Status:ADM IN Location: [place] [address] Reason for Visit Reason for Visit: Diagnoses Type 2 diabetes mellitus with diabetic polyneuropathy (03/13/25) Hyperkalemia (03/13/25) Essential (primary) hypertension (03/13/25) Pulmonary hypertension, unspecified (03/13/25) Nonrheumatic aortic (valve) stenosis (03/13/25) Acute on chronic systolic (congestive) heart failure (03/13/25) Non-pressure chronic ulcer of other part of right foot with necrosis of bone (03/13/25) Other acute osteomyelitis, right ankle and foot (03/13/25) Osteomyelitis, unspecified (03/13/25) Acute kidney failure, unspecified (03/13/25) Chronic kidney disease, stage 3a (03/13/25) Chronic kidney disease, stage 3b (03/13/25) Chronic kidney disease, unspecified (03/13/25) 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 (03/13/25) Subjective Subjective Patient seen post kidney biopsy, she denies any pain, still edematous, has no other concerns or complaints, does have some serous fluid lytes trickling out ofarea where patient had kidney biopsy however it is completely serous in nature with no sanguinous component, suspect it is weeping from her significant edema, no pain, pressure dressing to be applied Objective Data Objective Data Vital Signs: Vital Signs Temp Pulse Resp BP Pulse Ox O2 Del Method O2 Flow Rate 98.1 F 77 16 104/62 95 Nasal Cannula 2 03/20/25 11:15 03/20/25 11:15 03/20/25 11:15 03/20/25 11:15 03/20/25 11:15 03/20/25 11:15 03/20/25 11:15 Oxygen Flow Rate (L/min) 2 Oxygen Delivery Method Nasal Cannula Weight: 123.6 kg Body Mass Index (BMI) 53.4 Intake & Output: Intake and Output for Last 24 Hours 03/18/25 03/19/25 03/20/25 23:59 23:59 23:59 Intake Total 640 / 700 360 / 360 662 / 662 Output Total 170 / 270 1410 / 1410 50 / 50 Balance 470 / 430 -1050 / -1050 612 / 612 Lab / Micro Data 03/20/25 04:43 03/20/25 04:43 Labs: Laboratory Results - last 24 hr 03/15/25 10:05: c-ANCA Antibody <1:20, Atypical p-ANCA <1:20, p-ANCA Antibody <1:20, Glomerular Base Memb Ab < 0.2, Complement C3 131, Complement C4 33 03/19/25 22:02: POC Glucose 101 03/20/25 04:43: WBC 10.1, RBC 4.28, Hgb 11.0 L, Hct 39.1, MCV 91.4, MCH 25.7 L, MCHC 28.1 L, RDW Std Deviation 57.3 H, RDW Coeff of Leif 17.2 H, Plt Count 188, MPV 9.2, Immature Gran % (Auto) 1.200 H, Neut % (Auto) 84.1 H, Lymph % (Auto) 6.4 L, [place] % (Auto) 7.7, Eos % (Auto) 0.3, Baso % (Auto) 0.3, Absolute Neuts (auto) 8.5 H, Absolute Lymphs (auto) 0.65 L, Nucleated RBC % 0.8, Sodium 137, Potassium 4.6, Chloride 102, Carbon Dioxide 20.3 L, Anion Gap 15, BUN 49 H, Creatinine 4.02 H, Estim Creat Clear Calc 14.87 L, Est GFR (MDRD) Non-Af 11 L, BUN/Creatinine Ratio 12.1, Glucose 79, Calcium 8.3 03/20/25 06:46: POC Glucose 80 03/20/25 12:37: POC Glucose 78 03/20/25 16:52: POC Glucose 151 H Micro: Microbiology 03/16/25 09:25 Wound - Toe Gram Stain - Final 03/16/25 09:25 Wound - Toe Wound Culture - Final Enterococcus casseliflavus (D) Enterococcus avium Gram positive clinton 03/19/25 12:50 Bone - Great Toe Gram Stain - Final 03/19/25 12:50 Wound - Aerobic Swab Gram Stain - Final 03/19/25 12:50 Wound - Aerobic Swab Wound Culture - Preliminary 03/14/25 18:00 Urine Catheter - Catheter Urine Culture - Final Culture exhibits no growth. Radiography Diagnostic Testing: Radiology Impression Renal Biopsy Ultrasound 03/20/25 09:35 IMPRESSION: Successful left inferior renal ultrasound guided core biopsy. Laboratory results pending. Reading Location: [place] [address] Physical Exam Narrative General: Alert, no apparent distress HEENT: Atraumatic, normocephalic Eyes: Anicteric, normal conjunctiva, extraocular movements grossly intact Neck: Supple Respiratory: Diminished bilaterally, normal respiratory effort Cardiovascular: Regular rate GI: Soft, nontender, is protuberant Extremities: Pitting edema virtually throughout Musculoskeletal: Moving all extremities Neuro: No overt focal neurological deficits Skin: No rashes appreciated, does have some serous weeping from kidney biopsy area Psych: Cooperative Assessment & Plan Assessment/Plan (1) Acute on chronic renal failure: QUALIFIERS: Acute renal failure type: unspecified Chronic kidney disease stage: stage 3 (moderate) Chronic kidney disease stage 3 subtype: [id number] (GFR 45-59) Qualified Code(s): N17.9 - Acute kidney failure, unspecified; N18.31 - Chronic kidney disease, stage 3a PLAN: Tunneled dialysis cath placed 5/2. Now on HD nephrology following. will need Biopsy at at some point -03/20: Patient underwent kidney biopsy today, awaiting pathology, nephrology following, will likely have HD tomorrow (2) Congestive heart failure: QUALIFIERS: Heart failure type: systolic Heart failure chronicity: acute on chronic Qualified Code(s): I50.23 - Acute on chronic systolic (congestive) heart failure PLAN: acute HFrEF. EF 30% from echo on 12/12 Further fluid removal via dialysis. -03/20: Patient remains significantly edematous, suspect that the weeping serous fluid is due to her significant edema as there is no sanguinous drainage, no pain, erythema, irritation around the site patient denies any pain whatsoever, likely for dialysis tomorrow. Patient remains on 40 IV every 8 of Lasix (3) Right hallux osteomyelitis: PLAN: present on arrival. Patient underwent amputation on March 19. podiatry following on pip/tazo and vancomycin Wound culture from the second showed Enterococcus The Flava's and Enterococcus Avium As Well As a Gram-Positive Clintno. Wound Cultures from March 19 Currently Pending. -03/20: Podiatry recommended heel weightbearing in surgical shoe assisted by walker of the right lower extremity with dressing changes once a week and outpatient follow-up in 1 week as well as ID consult for antibiotic management. ID evaluated, wound culture showed Enterococcus and gram-positive rods and she is now status post OR 03/19/[address] Coronado for distal right first toe amputation with surgical cultures pending, patient has been narrowed to Unasyn and will likely be able to DC on p.o. Augmentin given presumed source control PLAN: Plan Chronic conditions: * DM2: SSI. * hypothyroidism: levothyroxine * obesity class III: complicates care and recovery. VTE prophylaxis: SQ heparin. Charges/Coding Visit Charges Inpatient E&M: 88299 Subs Hosp L2 03/20/25 0601 <Electronically signed by Aparna Mabry MD> Cosigner Signature (if applicable): CC: ~ Signed [facility] Work Phone: 1(438) 772-497405-06-2025 Progress note [facility] Medical Records Department [address] [place] [address] Progress Note - Hospitalist 03/20/25 0472 MR#: [id number] Acct: [id number] Name: MISAEL MEDINA Rep #:[id number] : 1950 74 From: Aparna Mabry MD PCP: Dr. Donal Castle MD Status:ADM IN Location: [place] [address] Reason for Visit Reason for Visit: Diagnoses Type 2 diabetes mellitus with diabetic polyneuropathy (03/13/25) Hyperkalemia (03/13/25) Essential (primary) hypertension (03/13/25) Pulmonary hypertension, unspecified (03/13/25) Nonrheumatic aortic (valve) stenosis (03/13/25) Acute on chronic systolic (congestive) heart failure (03/13/25) Non-pressure chronic ulcer of other part of right foot with necrosis of bone (03/13/25) Other acute osteomyelitis, right ankle and foot (03/13/25) Osteomyelitis, unspecified (03/13/25) Acute kidney failure, unspecified (03/13/25) Chronic kidney disease, stage 3a (03/13/25) Chronic kidney disease, stage 3b (03/13/25) Chronic kidney disease, unspecified (03/13/25) 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) Subjective Subjective Patient seen post kidney biopsy, she denies any pain, still edematous, has no other concerns or complaints, does have some serous fluid lytes trickling out ofarea where patient had kidney biopsy however it is completely serous in nature with no sanguinous component, suspect it is weeping from her significant edema, no pain, pressure dressing to be applied Objective Data Objective Data Vital Signs: Vital Signs Temp Pulse Resp BP Pulse Ox O2 Del Method O2 Flow Rate 98.1 F 77 16 104/62 95 Nasal Cannula 2 03/20/25 11:15 03/20/25 11:15 03/20/25 11:15 03/20/25 11:15 03/20/25 11:15 03/20/25 11:15 03/20/25 11:15 Oxygen Flow Rate (L/min) 2 Oxygen Delivery Method Nasal Cannula Weight: 123.6 kg Body Mass Index (BMI) 53.4 Intake & Output: Intake and Output for Last 24 Hours 03/18/25 03/19/25 03/20/25 23:59 23:59 23:59 Intake Total 640 / 700 360 / 360 662 / 662 Output Total 170 / 270 1410 / 1410 50 / 50 Balance 470 / 430 -1050 / -1050 612 / 612 Lab / Micro Data 03/20/25 04:43 03/20/25 04:43 Labs: Laboratory Results - last 24 hr 03/15/25 10:05: c-ANCA Antibody <1:20, Atypical p-ANCA <1:20, p-ANCA Antibody <1:20, Glomerular Base Memb Ab < 0.2, Complement C3 131, Complement C4 33 03/19/25 22:02: POC Glucose 101 03/20/25 04:43: WBC 10.1, RBC 4.28, Hgb 11.0 L, Hct 39.1, MCV 91.4, MCH 25.7 L, MCHC 28.1 L, RDW Std Deviation 57.3 H, RDW Coeff of Leif 17.2 H, Plt Count 188, MPV 9.2, Immature Gran % (Auto) 1.200 H,Neut % (Auto) 84.1 H, Lymph % (Auto) 6.4 L, [place] % (Auto) 7.7, Eos % (Auto) 0.3, Baso % (Auto) 0.3,Absolute Neuts (auto) 8.5 H, Absolute Lymphs (auto) 0.65 L, Nucleated RBC % 0.8, Sodium 137, Potassi um 4.6, Chloride 102, Carbon Dioxide 20.3 L, Anion Gap 15, BUN 49 H, Creatinine 4.02 H, Estim CreatClear Calc 14.87 L, Est GFR (MDRD) Non-Af 11 L, BUN/Creatinine Ratio 12.1, Glucose 79, Calcium 8.3 03/20/25 06:46: POC Glucose 80 03/20/25 12:37: POC Glucose 78 03/20/25 16:52: POC Glucose 151 H Micro: Microbiology 03/16/25 09:25 Wound - Toe Gram Stain - Final 03/16/25 09:25 Wound - Toe Wound Culture - Final Enterococcus casseliflavus (D) Enterococcus avium Gram positive clinton 03/19/25 12:50 Bone - Great Toe Gram Stain - Final 03/19/25 12:50 Wound - Aerobic Swab Gram Stain - Final 03/19/25 12:50 Wound - Aerobic Swab Wound Culture - Preliminary 03/14/25 18:00 Urine Catheter - Catheter Urine Culture - Final Culture exhibits no growth. Radiography Diagnostic Testing: Radiology Impression Renal Biopsy Ultrasound 03/20/25 09:35 IMPRESSION: Successful left inferior renal ultrasound guided core biopsy. Laboratory results pending. Reading Location: [place] [address] Physical Exam Narrative General: Alert, no apparent distress HEENT: Atraumatic, normocephalic Eyes: Anicteric, normal conjunctiva, extraocular movements grossly intact Neck: Supple Respiratory: Diminished bilaterally, normal respiratory effort Cardiovascular: Regular rate GI: Soft, nontender, is protuberant Extremities: Pitting edema virtually throughout Musculoskeletal: Moving all extremities Neuro: No overt focal neurological deficits Skin: No rashes appreciated, does have some serous weeping from kidney biopsy area Psych: Cooperative Assessment & Plan Assessment/Plan (1) Acute on chronic renal failure: QUALIFIERS: Acute renal failure type: unspecified Chronic kidney disease stage: stage 3 (moderate) Chronic kidney disease stage 3 subtype: [id number] (GFR 45-59) Qualified Code(s): N17.9 - Acute kidney failure, unspecified; N18.31 - Chronic kidney disease, stage 3a PLAN: Tunneled dialysis cath placed 03/16. Now on HD nephrology following. will need Biopsy at at some point -03/20: Patient underwent kidney biopsy today, awaiting pathology, nephrology following, will likely have HD tomorrow (2) Congestive heart failure: QUALIFIERS: Heart failure type: systolic Heart failure chronicity: acute on chronic Qualified Code(s): I50.23 - Acute on chronic systolic (congestive) heart failure PLAN: acute HFrEF. EF 30% from echo on 12/12 Further fluid removal via dialysis. -03/20: Patient remains significantly edematous, suspect that the weeping serous fluid is due to her significant edema as there is no sanguinous drainage, no pain, erythema, irritation around the site patient denies any pain whatsoever, likely for dialysis tomorrow. Patient remains on 40 IV every 8 of Lasix (3) Right hallux osteomyelitis: PLAN: present on arrival. Patient underwent amputation on March 19. podiatry following on pip/tazo and vancomycin Wound culture from the second showed Enterococcus The Flava's and Enterococcus Avium As Well As a Gram-Positive Clinton. Wound Cultures from March 19 Currently Pending. -03/20: Podiatry recommended heel weightbearing in surgical shoe assisted by walker of the right lower extremity with dressing changes once a week and outpatient follow-up in 1 week as well as ID consult for antibiotic management. ID evaluated, wound culture showed Enterococcus and gram-positive rodsand she is now status post OR 03/19/[address] Coronado for distal right first toe amputation with surgical cultures pending, patient has been narrowed to Unasyn and will likely be able to DC on p.o.Augmentin given presumed source control PLAN: Plan Chronic conditions: * DM2: SSI. * hypothyroidism: levothyroxine * obesity class III: complicates care and recovery. VTE prophylaxis: SQ heparin. Charges/Coding Visit Charges Inpatient E&M: 22802 Subs Hosp L2 03/20/25 1741 Cosigner Signature (if applicable): CC: ~ Signed [facility]05-06-2025 Progress note Author Lorraine Graned [facility] Note Date/Time March 20, 2025 12:51p m [facility] Medical Records Department [address] [place] [address] Progress Note 03/20/25 1250 MR#: [id number] Acct: [id number] Name: MISAEL MEDINA Rep #:[id number] : 1950 74 From: Lorraine reyez MD PCP: Dr. Donal Castle MD Status:ADM IN Location: [place] [address] Progress Note went down for biopsy. could not see today. serologies mostly negative. some urine output. HD likely tomorrow depending on labs. will call pathology tomorrowfor results of biopsy 03/20/25 1251 <Electronically signed by Lorraine Grande MD> Lorraine Grande MD Cosigner Signature (if applicable): CC: ~ Signed [facility] Work Phone: 1(804) 870-820705-06-2025 Progress note [facility] Medical Records Department [address] [facility] [place] [address] Progress Note 03/20/25 1250 MR#: [id number] Acct: [id number] Name: MISAEL MEDINA Rep #:[id number] : 1950 74 From: Lorraine reyez MD PCP: Dr. Donal Castle MD Status:ADM IN Location: [place] [address] Progress Note went down for biopsy. could not see today. serologies mostly negative. some urine output. HD likelytomorrow depending on labs. will call pathology tomorrowfor results of biopsy 03/20/25 1251 Lorraine Grande MD Cosigner Signature (if applicable): CC: ~ Signed [facility]05-06-2025 Progress note [facility] Note Date/Time March 20, 2025 10:40a m 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 Donal Castle MD Status:ADM IN Location: [place] [address] Subjective Subjective Patient is sitting in chair. Denies any complaints. Denies any shortness of breath. Objective Data Objective Data Vital Signs: Vital Signs Temp Pulse Resp BP Pulse Ox O2 Del Method O2 Flow Rate 97.0 F L 72 20 H 119/57 L 96 Nasal Cannula 2 03/15/25 08:50 03/15/25 08:50 03/15/25 08:50 03/15/25 08:50 03/15/25 08:50 03/15/25 08:50 03/15/25 08:50 Oxygen Flow Rate (L/min) 2 Oxygen Delivery Method Nasal Cannula Weight: 119.4 kg Body Mass Index (BMI) 51.4 Intake & Output: Intake and Output for Last 24 Hours 03/13/25 03/14/25 03/15/25 23:59 23:59 23:59 Intake Total 325.33 / 325.33 300 / 300 Output Total 150 / 150 50 / 50 Balance 325.33 / 325.33 150 / 150 -50 / -50 Lab / Micro Data 03/14/25 06:05 03/15/25 06:15 Labs: Laboratory Results - last 24 hr 03/14/25 11:38: POC Glucose 69 L 03/14/25 12:18: Sodium 143, Potassium 6.3 H*, Chloride 114 H, Carbon Dioxide TNP, Anion Gap UNABLE TO CALCULATE L, BUN 95 H, Creatinine 5.34 H, Estim Creat Clear Calc 10.79 L, Est GFR (MDRD) Non-Af 8 L, BUN/Creatinine Ratio 17.7, Glucose 71, Calcium 8.7, Total Creatine Kinase 26 03/14/25 12:41: POC Glucose 76 03/14/25 15:39: POC Glucose 137 H 03/14/25 18:00: Urine Creatinine 230.00 H 03/14/25 20:40: POC Glucose 119 H 03/15/25 06:15: Sodium 138, Potassium 6.2 H*, Chloride 111 H, Carbon Dioxide 14.7 L, Anion Gap 12, BUN 93 H, Creatinine 5.79 H, Estim Creat Clear Calc 10.10 L, Est GFR (MDRD) Non-Af 7 L, BUN/Creatinine Ratio 16.1, Glucose 106 H, Calcium 8.5 03/15/25 06:27: POC Glucose 99 03/15/25 10:05: PT 15.5 H, INR 1.2, APTT 28.0 Radiography Diagnostic Testing: Radiology Impression Renal Ultrasound 03/14/25 11:12 IMPRESSION: No hydronephrosis to suggest obstruction. Reading Location: [facility] Physical Exam Narrative Alert awake oriented x 3 no obvious distress s1s2 no murmurs lungs clear abdomen soft n Trace edema bilateral legs Underwood with trace yellow urine in tubing Assessment & Plan Assessment/Plan (1) Acute kidney injury superimposed on chronic kidney disease: PLAN: CKD stage IIIb at baseline, 1.7 last creatinine from December. - JOSUE superimposed on CKD; Creatinine 4.48 on 03/12--> today creatinine up to 5.79. Patient has Underwood, urine output only 50 mL charted for today. Renal ultrasound no hydronephrosis. Urine sodium less than 20. Cause of JOSUE unclear,renal serologies ordered and pending. Patient may need kidney biopsy. Discussed with patient today as it was also discussed with her yesterday that she is heading towards needing BOWL SANDER. Risks and benefits of hemodialysis discussed and reviewed with patient. Questions answered. Patient is in agreement with hemodialysis. Surgery team consulted for tunneled hemodialysis catheter. Depending upon timing of catheter placement we will then arrange for hemodialysis on 2K bath. No fluid removal with first HD treatment. Dialysis orders placed. Consult social service worker for arrangements for outpatient hemodialysis, diagnosis JOSUE. Hep B ordered for tomorrow. Continue holding metformin and furosemide. History of congestive heart failure. Chest x-ray is okay. Has moderate lower extremity edema which according to her is better than before. BNP significantlyhigh. Breathing looks comfortable right now, she is on O2 nasal cannula Hyperkalemia. Potassium level peak 7.4 --> improved to 6.2. Receiving Kayexalate again today and bicarb. When eating keep on low potassium diet restrictions. Assessment and plan reviewed with Dr. Grande. 03/15/25 1054 <Electronically signed by Lena WHALEY> Cosigner Signature (if applicable): 03/20/25 1040 <Electronically signed by Lorraine Grande MD> CC: ~ Signed [facility] Work Phone: 1(195) 260-698305-06-2025 Progress note [address] [facility] Note Date/Time March 20, 2025 10:40a m [facility] Medical Records Department [address] [place] [address] Progress Note - Nephrology 03/19/25 1042 MR#: [id number] Acct: [id number] Name: MISAEL MEDINA Rep #:[id number] : 1950 74 From: Lena GARRETTC PCP: Dr. Donal Castle MD Status:ADM IN Location: [place] [address] 1 Subjective Subjective Patient resting in bed, on hemodialysis. at bedside. No overnight events. Objective Data Objective Data Vital Signs: Vital Signs Temp Pulse Resp BP Pulse Ox O2 Del Method O2 Flow Rate 97 F L 64 18 122/59 H 98 Nasal Cannula 2 03/19/25 10:28 03/19/25 10:30 03/19/25 10:30 03/19/25 10:30 03/19/25 10:30 03/19/25 10:30 03/19/25 10:30 Oxygen Flow Rate (L/min) 2 Oxygen Delivery Method Nasal Cannula Weight: 123 kg Body Mass Index (BMI) 53.2 Intake & Output: Intake and Output for Last 24 Hours 03/17/25 03/18/25 03/19/25 23:59 23:59 23:59 Intake Total 650 / 650 640 / 700 110 / 110 Output Total 1300 / 1300 170 / 270 500 / 500 Balance -650 / -650 470 / 430 -390 / -390 Lab / Micro Data 03/19/25 06:25 03/18/25 05:26 Labs: Laboratory Results - last 24 hr 03/18/25 11:30: POC Glucose 117 H 03/18/25 16:10: POC Glucose 136 H 03/18/25 21:09: POC Glucose 130 H 03/19/25 06:22: POC Glucose 99 03/19/25 06:25: WBC 7.4, RBC 3.98 L, Hgb 10.4 L, Hct 36.5 L, MCV 91.7, MCH 26.1 L, MCHC 28.5 L, RDW Std Deviation 58.4 H, RDW Coeff of Leif 17.5 H, Plt Count 82 L, MPV 10.7, Differential Comment Micro: Microbiology 03/16/25 09:25 Wound - Toe Gram Stain - Final 03/16/25 09:25 Wound - Toe Wound Culture - Preliminary Enterococcus casseliflavus (D) Enterococcus avium Gram positive clinton 03/14/25 18:00 Urine Catheter - Catheter Urine Culture - Final Culture exhibits no growth. Physical Exam Narrative Alert and oriented x 3, no apparent distress S1, S2, RRR Diminished breath sounds Abdomen soft, nontender Edema bilateral lower legs Tunneled hemodialysis catheter dressing C/D/I; accessed for hemodialysis Assessment & Plan Assessment/Plan (1) Acute on chronic renal failure: QUALIFIERS: Acute renal failure type: unspecified Chronic kidney disease stage: stage 3 (moderate) Chronic kidney disease stage 3 subtype: [id number] (GFR 45-59) Qualified Code(s): N17.9 - Acute kidney failure, unspecified; N18.31 - Chronic kidney disease, stage 3a PLAN: JOSUE superimposed on CKD stage IIIb. Baseline creatinine around 1.7 mg/dL as of December 2024. Renal ultrasound no hydronephrosis. Patient oliguric. Reason for JOSUE unclear, serologies pending and will also plan for Kidney biopsy (patient agreeable). Double-stranded DNA less than 1. Serum creatinine peaked 5.96 on 03/16, tunneled hemodialysis catheter placed 03/16 and patient's first hemodialysis on 03/16. Patient had dialysis again on 03/17. Undergoing dialysis today, attempting around 1 to 2 L fluid removal as patient/blood pressure tolerates. Around 120 mL urine output yesterday, on Lasix 40 mg IV 3 times daily (started after HD initiated). Outpatient hemodialysis arrangements underway at [facility]. Assessment and plan reviewed with Dr. Grande. 03/19/25 1053 <Electronically signed by Lena WHALEY> Cosigner Signature (if applicable): 03/20/25 1040 <Electronically signed by Lorraine Grande MD> CC: ~ Signed [facility] Work Phone: 1(523) 959-905405-06-2025 Consult note Author Oswald [facility] Note Date/Time March 20, 2025 10:37a m [facility] Medical Records Department [address] [place] [address] Consultation - Infectious Dx 03/20/25 1032 MR#: [id number] Acct: [id number] Name: MISAEL MEDINA Rep #:[id number] : 1950 74 From: Oswald mcdonald MD PCP: Dr. Donal Castle MD Status:ADM IN Location: [place] [address] Assessment & Plan Assessment/Plan (1) Right hallux osteomyelitis: PLAN: Wound cx with enterococcus x2, GPR. Now s/p OR 03/19/[address] Coronado for distal r 1st toe amputation. Surg cx pending. On vanc/zosyn, will narrow to unasyn. Plan for discharge given presumed source control will be po augmentin 250mg bid for one week while final cx and path pending. Will follow, thank you, lonw case finishing machine adjuster (2) Type 2 diabetes mellitus with diabetic polyneuropathy: QUALIFIERS: Diabetes mellitus custodial insulin use: with computerized mill recorder use Qualified Code(s): E11.42 - Type 2 diabetes mellitus with diabetic polyneuropathy; Z79.4 - 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 (3) Acute on chronic renal failure: QUALIFIERS: Acute renal failure type: unspecified Chronic kidney disease stage: stage 3 (moderate) Chronic kidney disease stage 3 subtype: [id number] (GFR 45-59) Qualified Code(s): N17.9 - Acute kidney failure, unspecified; N18.31 - Chronic kidney disease, stage 3a HPI Consult Data Date of Consult: 03/20/25 HPI Narrative Reason for Consultation: osteo HPI Narrative: MISAEL MEDINA, is a 74 F with h/o DM with neuropathy, CKD, CHF, presented 03/13 with several weeks not feeling well. Had pneumonia in October, admitted here. In the past few months, stepped on something and hurt R 1st toe. Had progressive pain, redness, swelling, drainage. No fever or chills, no recent abx. Admitted here with JOSUE, neph/podiatry/cardiology consulted. Now s/p distal toe amputation by Dr. Coronado 03/19/25. Feeling ok, pain controlled. Full ROS performed and neg except as noted above. [facility] Medical History Congestive heart failure Hypothyroidism Osteoporosis Morbid obesity with BMI of 45.0-49.9, adult Wears glasses Post-menopausal Thyroid disease Diabetes Uses wheelchair Ambulates with cane Arthritis High cholesterol Back pain TIA (transient ischemic attack) Dietary restriction Non-smoker History of pain when walking History of transesophageal echocardiography (DESTIN) Cardiology follow-up encounter Hypertension Hypertension Diabetes Home Medications ?Medication ?Instructions ?Recorded ?Last Taken ?Type atorvastatin 10 mg tablet 10 mg PO QHS cholesterol 03/12/25 History levothyroxine 100 mcg tablet 100 mcg PO DAILY thyroid 08/31/22 03/13/25 History (Synthroid) aspirin 81 mg chewable tablet 81 mg PO DAILYCM 90 days #90 tabs 10/21/24 03/13/25 Rx carvedilol 6.25 mg tablet (Coreg) 6.25 mg PO BID #60 t abs 12/01/24 03/13/25 Rx dapagliflozin propanediol 10 mg 10 mg PO QDAY #30 tabs 03/12/25 Unknown Rx tablet (Farxiga) furosemide 40 mg tablet 40 mg PO QAM #30 tabs 03/13/25 Rx metformin 500 mg tablet 500 mg PO BID 03/12/2503/13 History Allergy/AdvReac Type Severity Reaction Status Date / Time No Known Allergies Allergy Verified 03/13/25 13:58 Family History Mother Hypertension Father Heart disease Surgical History Hx of colonoscopy Hx of cholecystectomy H/O: hysterectomy Social History household members: spouse Smoking Status: Never smoker alcohol intake: never substance use type: does not use caffeine: No Physical Exam Const alert, oriented x3 and no apparent distress General Appearance: cooperative HEENT normocephalic and head/scalp atraumatic Eyes PERRL and EOMs intact bilaterally Neck supple and No nodes Resp normal air movement and clear to auscultation bilaterally Cardio regular rate and regular rhythm GI soft to palpation, non-tender and non-distended Extremity General Extremity: edema Skin Skin Narrative: reviewed wound photos Neuro CN's II-XII intact bilaterally Lab / Micro Data Attestation: I reviewed the patient's lab results. 03/20/25 04:43 03/20/25 04:43 Labs: Laboratory Results - last 24 hr 03/15/25 10:05: c-ANCA Antibody <1:20, Atypical p-ANCA <1:20, p-ANCA Antibody <1:20, Glomerular Base Memb Ab < 0.2, Complement C3 131, Complement C4 33 03/19/25 06:25: Sodium 134, Potassium 5.4 H, Chloride 103, Carbon Dioxide 17.4 L, Anion Gap 14, BUN 59 H, Creatinine 4.52 H, Estim Creat Clear Calc 13.19 L, EstGFR (MDRD) Non-Af 10 L, BUN/Creatinine Ratio 13.1, Glucose 92, Calcium 7.9, TSH 4.300 H 03/19/25 16:38: POC Glucose 85 03/19/25 22:02: POC Glucose 101 03/20/25 04:43: WBC 10.1, RBC 4.28, Hgb 11.0 L, Hct 39.1, MCV 91.4, MCH 25.7 L, MCHC 28.1 L, RDW Std Deviation 57.3 H, RDW Coeff of Leif 17.2 H, Plt Count 188, MPV 9.2, Immature Gran % (Auto) 1.200 H, Neut % (Auto) 84.1 H, Lymph % (Auto) 6.4 L, [place] % (Auto) 7.7, Eos % (Auto) 0.3, Baso % (Auto) 0.3, Absolute Neuts (auto) 8.5 H, Absolute Lymphs (auto) 0.65 L, Nucleated RBC % 0.8, Sodium 137, Potassium 4.6, Chloride 102, Carbon Dioxide 20.3 L, Anion Gap 15, BUN 49 H, Creatinine 4.02 H, Estim Creat Clear Calc 14.87 L, Est GFR (MDRD) Non-Af 11 L, BUN/Creatinine Ratio 12.1, Glucose 79, Calcium 8.3 03/20/25 06:46: POC Glucose 80 Micro: Microbiology 03/19/25 12:50 Wound - Aerobic Swab Gram Stain - Final 03/19/25 12:50 Wound - Aerobic Swab Wound Culture - Preliminary 03/16/25 09:25 Wound - Toe Gram Stain - Final 03/16/25 09:25 Wound - Toe Wound Culture - Final Enterococcus casseliflavus (D) Enterococcus avium Gram positive clinton Imaging Radiology Impression Ankle Brachial Index 03/16/25 12:47 Interpretation Summary Right ROJELIO 2.09, artificially elevated. Doppler/PVR waveforms of the right ankle mildly diminished at rest. Left ROJELIO 1.44, normal. TBI and Doppler/PVR waveforms of the left ankle normal atrest. Ordering Physician: Lucas Coronado Referring Physician: Donal Castle Performed By: Nabor [place], RVT 03/20/25 1037 <Electronically signed by Oswald Bonds MD> Cosigner Signature (if applicable): CC: Dr. Donal Castle MD~ Signed [facility] Work Phone: 1(246) [phone] Radiology Diagnostic study note [facility] Imaging Services [address] [facility] [address] [address] [place] [place] [id number] Kidney Biopsy MR#: [id number] Acct: [id number] Name: MISAEL MEDINA Rep #: [id number] : 1950 F 74 From: Kirk Stafford MD PCP: Dr. Donal Castle MD Status: ADM IN Study:Kidney Biopsy Date of Exam: Exam# [id number] Ordering Dr: Kurtis Grande MD EXAM: Ultrasound-guided renal biopsy. CLINICAL HISTORY: Acute kidney injury. COMPARISON: None. TECHNIQUE: Ultrasound-guided kidney biopsy. FINDINGS: Procedure: Following informed consent, and using standard sterile technique, an ultrasound- guided left inferior kidney biopsy was performed via an anterolateral approach. 2% lidocaine local anesthesia was followed by placement of a [employer] 18 gauge 20 cm core biopsy system. 3 biopsy specimens were then obtained. No complication was encountered, in the patient left the department in good condition, without significant complaint US/Kidney Biopsy IMPRESSION: Successful left inferior renal ultrasound guided core biopsy. Laboratory results pending. Reading Location: [place] [address] CC: Dr. Donal Castle MD; Dr. Lorraine Grande MD ~ Deal Architect: Signed [facility]05-06-2025 Progress note [facility] Health [facility] Medical Records Department [address] [place] [address] Progress Note - Nephrology 03/15/25 1046 MR#: [id number] Acct: [id number] Name: MISAEL MEDINA Renée Rep #:[id number] : 1950 74 From: Lena dutton NP-C PCP: Dr. Donal Castle MD Status:ADM IN Location: [place] [address] Subjective Subjective Patient is sitting in chair. Denies any complaints. Denies any shortness of breath. Objective Data Objective Data Vital Signs: Vital Signs Temp Pulse Resp BP Pulse Ox O2 Del Method O2 Flow Rate 97.0 F L 72 20 H 119/57 L 96 Nasal Cannula 2 03/15/25 08:50 03/15/25 08:50 03/15/25 08:50 03/15/25 08:50 03/15/25 08:50 03/15/25 08:50 03/15/25 08:50 Oxygen Flow Rate (L/min) 2 Oxygen Delivery Method Nasal Cannula Weight: 119.4 kg Body Mass Index (BMI) 51.4 Intake & Output: Intake and Output for Last 24 Hours 03/13/25 03/14/25 03/15/25 23:59 23:59 23:59 Intake Total 325.33 / 325.33 300 / 300 Output Total 150 / 150 50 / 50 Balance 325.33 / 325.33 150 / 150 -50 / -50 Lab / Micro Data 03/14/25 06:05 03/15/25 06:15 Labs: Laboratory Results - last 24 hr 03/14/25 11:38: POC Glucose 69 L 03/14/25 12:18: Sodium 143, Potassium 6.3 H*, Chloride 114 H, Carbon Dioxide TNP, Anion Gap UNABLE TO CALCULATE L, BUN 95 H, Creatinine 5.34 H, Estim Creat Clear Calc 10.79 L, Est GFR (MDRD) Non-Af 8L, BUN/Creatinine Ratio 17.7, Glucose 71, Calcium 8.7, Total Creatine Kinase 26 03/14/25 12:41: POC Glucose 76 03/14/25 15:39: POC Glucose 137 H 03/14/25 18:00: Urine Creatinine 230.00 H 03/14/25 20:40: POC Glucose 119 H 03/15/25 06:15: Sodium 138, Potassium 6.2 H*, Chloride 111 H, Carbon Dioxide 14.7 L, Anion Gap 12, BUN 93 H, Creatinine 5.79 H, Estim Creat Clear Calc 10.10 L, Est GFR (MDRD) Non-Af 7 L, BUN/Creatinine Ratio 16.1, Glucose 106 H, Calcium 8.5 03/15/25 06:27: POC Glucose 99 03/15/25 10:05: PT 15.5 H, INR 1.2, APTT 28.0 Radiography Diagnostic Testing: Radiology Impression Renal Ultrasound 03/14/25 11:12 IMPRESSION: No hydronephrosis to suggest obstruction. Reading Location: [facility] Physical Exam Narrative Alert awake oriented x 3 no obvious distress s1s2 no murmurs lungs clear abdomen soft n Trace edema bilateral legs Underwood with trace yellow urine in tubing Assessment & Plan Assessment/Plan (1) Acute kidney injury superimposed on chronic kidney disease: PLAN: CKD stage IIIb at baseline, 1.7 last creatinine from December. - JOSUE superimposed on CKD; Creatinine 4.48 on 03/12--> today creatinine up to 5.79. Patient has Underwood, urine output only 50 mL charted for today. Renal ultrasound no hydronephrosis. Urine sodium less than 20. Cause of JOSUE unclear,renal serologies ordered and pending. Patient may need kidney biopsy. Discussed with patient today as it was also discussed with her yesterday that she is heading towards needing BOWL SANDER. Risks and benefits of hemodialysis discussed and reviewed with patient. Questions answered. Patient is in agreement with hemodialysis. Surgery team consulted for tunneled hemodialysiscatheter. Depending upon timing of catheter placement we will then arrange for hemodialysis on 2K bath. No fluid removal with first HD treatment. Dialysis orders placed. Consult social service worker for arrangements for outpatient hemodialysis, diagnosis JOSUE. Hep B ordered for tomorrow. Continue holding me tformin and furosemide. History of congestive heart failure. Chest x-ray is okay. Has moderate lower extremity edema which according to her is better than before. BNP significantlyhigh. Breathing looks comfortable right now, she is on O2 nasal cannula Hyperkalemia. Potassium level peak 7.4 --> improved to 6.2. Receiving Kayexalate again today andbicarb. When eating keep on low potassium diet restrictions. Assessment and plan reviewed with Dr. Grande. 03/15/25 1054 Cosigner Signature (if applicable): 03/20/25 1040 CC: ~ Signed 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 Donal Castle MD Status:ADM IN Location: [place] [address] 1 Subjective Subjective Patient resting in bed, on hemodialysis. at bedside. No overnight events. Objective Data Objective Data Vital Signs: Vital Signs Temp Pulse Resp BP Pulse Ox O2 Del Method O2 Flow Rate 97 F L 64 18 122/59 H 98 Nasal Cannula 2 03/19/25 10:28 03/19/25 10:30 03/19/25 10:30 03/19/25 10:30 03/19/25 10:30 03/19/25 10:30 03/19/25 10:30 Oxygen Flow Rate (L/min) 2 Oxygen Delivery Method Nasal Cannula Weight: 123 kg Body Mass Index (BMI) 53.2 Intake & Output: Intake and Output for Last 24 Hours 03/17/25 03/18/25 03/19/25 23:59 23:59 23:59 Intake Total 650 / 650 640 / 700 110 / 110 Output Total 1300 / 1300 170 / 270 500 / 500 Balance -650 / -650 470 / 430 -390 / -390 Lab / Micro Data 03/19/25 06:25 03/18/25 05:26 Labs: Laboratory Results - last 24 hr 03/18/25 11:30: POC Glucose 117 H 03/18/25 16:10: POC Glucose 136 H 03/18/25 21:09: POC Glucose 130 H 03/19/25 06:22: POC Glucose 99 03/19/25 06:25: WBC 7.4, RBC 3.98 L, Hgb 10.4 L, Hct 36.5 L, MCV 91.7, MCH 26.1 L, MCHC 28.5 L, RDWStd Deviation 58.4 H, RDW Coeff of Leif 17.5 H, Plt Count 82 L, MPV 10.7, Differential Comment Micro: Microbiology 03/16/25 09:25 Wound - Toe Gram Stain - Final 03/16/25 09:25 Wound - Toe Wound Culture - Preliminary Enterococcus casseliflavus (D) Enterococcus avium Gram positive clinton 03/14/25 18:00 Urine Catheter - Catheter Urine Culture - Final Culture exhibits no growth. Physical Exam Narrative Alert and oriented x 3, no apparent distress S1, S2, RRR Diminished breath sounds Abdomen soft, nontender Edema bilateral lower legs Tunneled hemodialysis catheter dressing C/D/I; accessed for hemodialysis Assessment & Plan Assessment/Plan (1) Acute on chronic renal failure: QUALIFIERS: Acute renal failure type: unspecified Chronic kidney disease stage: stage 3 (moderate) Chronic kidney disease stage 3 subtype: [id number] (GFR 45-59) Qualified Code(s): N17.9 - Acute kidney failure, unspecified; N18.31 - Chronic kidney disease, stage 3a PLAN: JOSUE superimposed on CKD stage IIIb. Baseline creatinine around 1.7 mg/dL as of December 2024.Renal ultrasound no hydronephrosis. Patient oliguric. Reason for JOSUE unclear, serologies pending and will also plan for Kidney biopsy (patient agreeable). Double-stranded DNA less than 1. Serum creatinine peaked 5.96 on 03/16, tunneled hemodialysis catheter placed 03/16 and patient's first hemodialysison 03/16. Patient had dialysis again on 03/17. Undergoing dialysis today, attempting around 1 to 2 L fluid removal as patient/blood pressure tolerates. Around 120 mL urine output yesterday, on Lasix 40 mg IV 3 times daily (started after HD initiated). Outpatient hemodialysis arrangements underway at [facility]. Assessment and plan reviewed with Dr. Grande. 03/19/25 1053 Cosigner Signature (if applicable): 03/20/25 1040 CC: ~ Signed [facility]05-06-2025 Consult note [facility] Medical Records Department [address] [place] [address] Consultation - Infectious Dx 03/20/25 1032 MR#: [id number] Acct: [id number] Name: MISAEL MEDINA Rep #:[id number] : 1950 74 From: Oswald mcdonald MD PCP: Dr. Donal Castle MD Status:ADM IN Location: [place] [id number]- [id number] Assessment & Plan Assessment/Plan (1) Right hallux osteomyelitis: PLAN: Wound cx with enterococcus x2, GPR. Now s/p OR 03/19/[address] Coronado for distal r 1st toe amputation. Surg cx pending. On vanc/zosyn, will narrow to unasyn. Plan for discharge given presumed source control will be po augmentin 250mg bid for one week while final cx and path pending. Will follow, thank you, kassie case finishing machine adjuster (2) Type 2 diabetes mellitus with diabetic polyneuropathy: QUALIFIERS: Diabetes mellitus custodial insulin use: with computerized mill recorder use Qualified Code(s): E11.42 -Type 2 diabetes mellitus with diabetic polyneuropathy; Z79.4 - 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 (3) Acute on chronic renal failure: QUALIFIERS: Acute renal failure type: unspecified Chronic kidney disease stage: stage 3 (moderate) Chronic kidney disease stage 3 subtype: [id number] (GFR 45-59) Qualified Code(s): N17.9 - Acute kidney failure, unspecified; N18.31 - Chronic kidney disease, stage 3a HPI Consult Data Date of Consult: 03/20/25 HPI Narrative Reason for Consultation: osteo HPI Narrative: MISAEL MEDINA, is a 74 F with h/o DM with neuropathy, CKD, CHF, presented 03/13 with several weeks not feeling well. Had pneumonia in October, admitted here. In the past few months, stepped on something and hurt R 1st toe. Had progressive pain, redness, swelling, drainage. No fever or chills, norecent abx. Admitted here with JOSUE, neph/podiatry/cardiology consulted. Now s/p distal toe amputation by Dr. Coronado 03/19/25. Feeling ok, pain controlled. Full ROS performed and neg except as noted above. [facility] Medical History Congestive heart failure Hypothyroidism Osteoporosis Morbid obesity with BMI of 45.0-49.9, adult Wears glasses Post-menopausal Thyroid disease Diabetes Uses wheelchair Ambulates with cane Arthritis High cholesterol Back pain TIA (transient ischemic attack) Dietary restriction Non-smoker History of pain when walking History of transesophageal echocardiography (DESTIN) Cardiology follow-up encounter Hypertension Hypertension Diabetes Home Medications ?Medication ?Instructions ?Recorded ?Last Taken ?Type atorvastatin 10 mg tablet 10 mg PO QHS cholesterol 03/12/25 History levothyroxine 100 mcg tablet 100 mcg PO DAILY thyroid 08/31/22 03/13/25 History (Synthroid) aspirin 81 mg chewable tablet 81 mg PO DAILYCM 90 days #90 tabs 10/21/24 03/13/25 Rx carvedilol 6.25 mg tablet (Coreg) 6.25 mg PO BID #60 t abs 12/01/24 03/13/25 Rx dapagliflozin propanediol 10 mg 10 mg PO QDAY #30 tabs 03/12/25 Unknown Rx tablet (Farxiga) furosemide 40 mg tablet 40 mg PO QAM #30 tabs 03/13/25 Rx metformin 500 mg tablet 500 mg PO BID 03/12/2503/13 History Allergy/AdvReac Type Severity Reaction Status Date / Time No Known Allergies Allergy Verified 03/13/25 13:58 Family History Mother Hypertension Father Heart disease Surgical History Hx of colonoscopy Hx of cholecystectomy H/O: hysterectomy Social History household members: spouse Smoking Status: Never smoker alcohol intake: never substance use type: does not use caffeine: No Physical Exam Const alert, oriented x3 and no apparent distress General Appearance: cooperative HEENT normocephalic and head/scalp atraumatic Eyes PERRL and EOMs intact bilaterally Neck supple and No nodes Resp normal air movement and clear to auscultation bilaterally Cardio regular rate and regular rhythm GI soft to palpation, non-tender and non-distended Extremity General Extremity: edema Skin Skin Narrative: reviewed wound photos Neuro CN's II-XII intact bilaterally Lab / Micro Data Attestation: I reviewed the patient's lab results. 03/20/25 04:43 03/20/25 04:43 Labs: Laboratory Results - last 24 hr 03/15/25 10:05: c-ANCA Antibody <1:20, Atypical p-ANCA <1:20, p-ANCA Antibody <1:20, Glomerular Base Memb Ab < 0.2, Complement C3 131, Complement C4 33 03/19/25 06:25: Sodium 134, Potassium 5.4 H, Chloride 103, Carbon Dioxide 17.4 L, Anion Gap 14, BUN59 H, Creatinine 4.52 H, Estim Creat Clear Calc 13.19 L, EstGFR (MDRD) Non-Af 10 L, BUN/Creatinine Ratio 13.1, Glucose 92, Calcium 7.9, TSH 4.300 H 03/19/25 16:38: POC Glucose 85 03/19/25 22:02: POC Glucose 101 03/20/25 04:43: WBC 10.1, RBC 4.28, Hgb 11.0 L, Hct 39.1, MCV 91.4, MCH 25.7 L, MCHC 28.1 L, RDW Std Deviation 57.3 H, RDW Coeff of Leif 17.2 H, Plt Count 188, MPV 9.2, Immature Gran % (Auto) 1.200 H,Neut % (Auto) 84.1 H, Lymph % (Auto) 6.4 L, [place]iv[place] % (Auto) 7.7, Eos % (Auto) 0.3, Baso % (Auto) 0.3,Absolute Neuts (auto) 8.5 H, Absolute Lymphs (auto) 0.65 L, Nucleated RBC % 0.8, Sodium 137, Potassi um 4.6, Chloride 102, Carbon Dioxide 20.3 L, Anion Gap 15, BUN 49 H, Creatinine 4.02 H, Estim CreatClear Calc 14.87 L, Est GFR (MDRD) Non-Af 11 L, BUN/Creatinine Ratio 12.1, Glucose 79, Calcium 8.3 03/20/25 06:46: POC Glucose 80 Micro: Microbiology 03/19/25 12:50 Wound - Aerobic Swab Gram Stain - Final 03/19/25 12:50 Wound - Aerobic Swab Wound Culture - Preliminary 03/16/25 09:25 Wound - Toe Gram Stain - Final 03/16/25 09:25 Wound - Toe Wound Culture - Final Enterococcus casseliflavus (D) Enterococcus avium Gram positive clinton Imaging Radiology Impression Ankle Brachial Index 03/16/25 12:47 Interpretation Summary Right ROJELIO 2.09, artificially elevated. Doppler/PVR waveforms of the right ankle mildly diminished at rest. Left ROJELIO 1.44, normal. TBI and Doppler/PVR waveforms of the left ankle normal atrest. Ordering Physician: Lucas Coronado Referring Physician: Donal Castle Performed By: Nabor Colorado RVT 03/20/25 1037 Cosigner Signature (if applicable): CC: Dr. Donla Castle MD~ Signed [facility]05-06-2025 Progress note Author Lucas Coronado [facility] Note Date/Time March 20, 2025 8:20am [facility] System Medical Records Department [address] [place] [address] Progress Note 03/20/25 0817 MR#: [id number] Acct: [id number] Name: MISAEL MEDINA Rep #:[id number] : 1950 74 From: Lucas Coronado DPJamarcus PCP: Dr. Donal Castle MD Status:ADM IN Location: [place] [address] Subjective Subjective Patient seen 1 day postop. Patient resting comfortably. No pain. Objective Data Objective Data Vital Signs: Vital Signs Temp Pulse Resp BP Pulse Ox O2 Del Method O2 Flow Rate 98.4 F 80 16 117/56 L 96 Nasal Cannula 2 03/20/25 06:50 03/20/25 06:50 03/20/25 06:50 03/20/25 06:50 03/20/25 06:50 03/20/25 06:50 03/20/25 06:50 Oxygen Flow Rate (L/min) 2 Oxygen Delivery Method Nasal Cannula Weight: 123.6 kg Body Mass Index (BMI) 53.4 Intake & Output: Intake and Output for Last 24 Hours 03/18/25 03/19/25 03/20/25 23:59 23:59 23:59 Intake Total 640 / 700 360 / 360 50 / 50 Output Total 170 / 270 1410 / 1410 50 / 50 Balance 470 / 430 -1050 / -1050 0 / 0 Lab / Micro Data 03/20/25 04:43 03/20/25 04:43 Labs: Laboratory Results - last 24 hr 03/15/25 10:05: c-ANCA Antibody <1:20, Atypical p-ANCA <1:20, p-ANCA Antibody <1:20, Glomerular Base Memb Ab < 0.2, Complement C3 131, Complement C4 33 03/19/25 06:25: Differential Comment , Sodium 134, Potassium 5.4 H, Chloride 103, Carbon Dioxide 17.4 L, Anion Gap 14, BUN 59 H, Creatinine 4.52 H, Estim Creat Clear Calc 13.19 L, Est GFR (MDRD) Non-Af 10 L, BUN/Creatinine Ratio 13.1,Glucose 92, Calcium 7.9, TSH 4.300 H 03/19/25 16:38: POC Glucose 85 03/19/25 22:02: POC Glucose 101 03/20/25 04:43: WBC 10.1, RBC 4.28, Hgb 11.0 L, Hct 39.1, MCV 91.4, MCH 25.7 L, MCHC 28.1 L, RDW Std Deviation 57.3 H, RDW Coeff of Leif 17.2 H, Plt Count 188, MPV 9.2, Immature Gran % (Auto) 1.200 H, Neut % (Auto) 84.1 H, Lymph % (Auto) 6.4 L, Bolivar % (Auto) 7.7, Eos % (Auto) 0.3, Baso % (Auto) 0.3, Absolute Neuts (auto) 8.5 H, Absolute Lymphs (auto) 0.65 L, Nucleated RBC % 0.8, Sodium 137, Potassium 4.6, Chloride 102, Carbon Dioxide 20.3 L, Anion Gap 15, BUN 49 H, Creatinine 4.02 H, Estim Creat Clear Calc 14.87 L, Est GFR (MDRD) Non-Af 11 L, BUN/Creatinine Ratio 12.1, Glucose 79, Calcium 8.3 03/20/25 06:46: POC Glucose 80 Micro: Microbiology 03/16/25 09:25 Wound - Toe Gram Stain - Final 03/16/25 09:25 Wound - Toe Wound Culture - Final Enterococcus casseliflavus (D) Enterococcus avium Gram positive clinton 03/19/25 12:50 Wound - Aerobic Swab Gram Stain - Final 03/14/25 18:00 Urine Catheter - Catheter Urine Culture - Final Culture exhibits no growth. Radiography Diagnostic Testing: Radiology Impression Ankle Brachial Index 03/16/25 12:47 Interpretation Summary Right ROJELIO 2.09, artificially elevated. Doppler/PVR waveforms of the right ankle mildly diminished at rest. Left ROJELIO 1.44, normal. TBI and Doppler/PVR waveforms of the left ankle normal atrest. Ordering Physician: Lucas Coronado Referring Physician: Donal Castle Performed By: Nabor Colorado RVT Physical Exam Narrative Neurovascular status unchanged. Right hallux amputation site noted be well-approximated with intact sutures. Mild sanguinous drainage noted to dressing. No residual acute signs of infection noted. No signs DVT bilaterally. Assessment & Plan Assessment/Plan (1) Other acute osteomyelitis, right ankle and foot: PLAN: Exam performed. 1 day postop right hallux partial amputation. Awaiting intraoperative cultures. Recommend ID consult for antibiotic management Patient can be heel weightbearing in surgical shoe assisted by walker of the right lower extremity. Plan for dressing changes once a week until incision healing consisting of Betadine Adaptic 4 x 4's Kerlix and Brett bandage this was performed today. Patient will follow-up in 1 week postoperatively in my outpatient clinic unless patient is still in transitional care unit or hospital at which time I will evaluate patient in the hospital. *This time I will sign off of any additional care is required during this inpatient stay please feel free to contact me and I will come back evaluate the patient my phone number is [phone] (2) Non-pressure chronic ulcer of other part of right foot with necrosis of bone: 03/20/25 08 <Electronically signed by Lucas Coronado DPM> Lucas Coronado DPM Cosigner Signature (if applicable): CC: ~ Signed [facility] Work Phone: [phone] 300-103705-06-2025 Progress note [facility] System Medical Records Department [address] [place] [address] Progress Note 03/20/25816 MR#: [id number] Acct: [id number] Name: MISAEL MEDINA Rep #:[id number] : 1950 74 From: Lucas Coronado DPM PCP: Dr. Donal Castle MD Status:ADM IN Location: [place] [address] Subjective Subjective Patient seen 1 day postop. Patient resting comfortably. No pain. Objective Data Objective Data Vital Signs: Vital Signs Temp Pulse Resp BP Pulse Ox O2 Del Method O2 Flow Rate 98.4 F 80 16 117/56 L 96 Nasal Cannula 2 03/20/25 06:50 03/20/25 06:50 03/20/25 06:50 03/20/25 06:50 03/20/25 06:50 03/20/25 06:50 03/20/25 06:50 Oxygen Flow Rate (L/min) 2 Oxygen Delivery Method Nasal Cannula Weight: 123.6 kg Body Mass Index (BMI) 53.4 Intake & Output: Intake and Output for Last 24 Hours 03/18/25 03/19/25 03/20/25 23:59 23:59 23:59 Intake Total 640 / 700 360 / 360 50 / 50 Output Total 170 / 270 1410 / 1410 50 / 50 Balance 470 / 430 -1050 / -1050 0 / 0 Lab / Micro Data 03/20/25 04:43 03/20/25 04:43 Labs: Laboratory Results - last 24 hr 03/15/25 10:05: c-ANCA Antibody <1:20, Atypical p-ANCA <1:20, p-ANCA Antibody <1:20, Glomerular Base Memb Ab < 0.2, Complement C3 131, Complement C4 33 03/19/25 06:25: Differential Comment , Sodium 134, Potassium 5.4 H, Chloride 103, Carbon Dioxide 17.4 L, Anion Gap 14, BUN 59 H, Creatinine 4.52 H, Estim Creat Clear Calc 13.19 L, Est GFR (MDRD) Non-Af 10 L, BUN/Creatinine Ratio 13.1,Glucose 92, Calcium 7.9, TSH 4.300 H 03/19/25 16:38: POC Glucose 85 03/19/25 22:02: POC Glucose 101 03/20/25 04:43: WBC 10.1, RBC 4.28, Hgb 11.0 L, Hct 39.1, MCV 91.4, MCH 25.7 L, MCHC 28.1 L, RDW Std Deviation 57.3 H, RDW Coeff of Leif 17.2 H, Plt Count 188, MPV 9.2, Immature Gran % (Auto) 1.200 H,Neut % (Auto) 84.1 H, Lymph % (Auto) 6.4 L, Bolivar % (Auto) 7.7, Eos % (Auto) 0.3, Baso % (Auto) 0.3,Absolute Neuts (auto) 8.5 H, Absolute Lymphs (auto) 0.65 L, Nucleated RBC % 0.8, Sodium 137, Potassi um 4.6, Chloride 102, Carbon Dioxide 20.3 L, Anion Gap 15, BUN 49 H, Creatinine 4.02 H, Estim CreatClear Calc 14.87 L, Est GFR (MDRD) Non-Af 11 L, BUN/Creatinine Ratio 12.1, Glucose 79, Calcium 8.3 03/20/25 06:46: POC Glucose 80 Micro: Microbiology 03/16/25 09:25 Wound - Toe Gram Stain - Final 03/16/25 09:25 Wound - Toe Wound Culture - Final Enterococcus casseliflavus (D) Enterococcus avium Gram positive clinton 03/19/25 12:50 Wound - Aerobic Swab Gram Stain - Final 03/14/25 18:00 Urine Catheter - Catheter Urine Culture - Final Culture exhibits no growth. Radiography Diagnostic Testing: Radiology Impression Ankle Brachial Index 03/16/25 12:47 Interpretation Summary Right ROJELIO 2.09, artificially elevated. Doppler/PVR waveforms of the right ankle mildly diminished at rest. Left ROJELIO 1.44, normal. TBI and Doppler/PVR waveforms of the left ankle normal atrest. Ordering Physician: Lucas Coronado Referring Physician: Donal Castle Performed By: Nabor Colorado RVT Physical Exam Narrative Neurovascular status unchanged. Right hallux amputation site noted be well-approximated with intact sutures. Mild sanguinous drainage noted to dressing. No residual acute signs of infection noted. No signs DVT bilaterally. Assessment & Plan Assessment/Plan (1) Other acute osteomyelitis, right ankle and foot: PLAN: Exam performed. 1 day postop right hallux partial amputation. Awaiting intraoperative cultures. Recommend ID consult for antibiotic management Patient can be heel weightbearing in surgical shoe assisted by walker of the right lower extremity. Plan for dressing changes once a week until incision healing consisting of Betadine Adaptic 4 x 4'sKerlix and Brett bandage this was performed today. Patient will follow-up in 1 week postoperatively in my outpatient clinic unless patient is still in transitional care unit or hospital at which time Iwneel evaluate patient in the hospital. *This time I will sign off of any additional care is required during this inpatient stay please feel free to contact me and I will come back evaluate the patient my phone number is [phone] (2) Non-pressure chronic ulcer of other part of right foot with necrosis of bone: 03/20/25 0820 Lucas Coronado DPM Cosigner Signature (if applicable): CC: ~ Signed [facility]05-05-2025 Progress note Author Fitz Ryan [facility] Note Date/Time March 19, 2025 3:48pm [facility] Medical Records Department [address] [place] [address] Progress Note - Hospitalist 03/19/25 0840 MR#: [id number] Acct: [id number] Name: CAROLMISAEL Renée Rep #:[id number] : 1950 74 From: Fitz Ryan DO PCP: Dr. Donal Castle MD Status:ADM IN Location: [place] [address] Reason for Visit Reason for Visit: Diagnoses Type 2 diabetes mellitus with diabetic polyneuropathy (03/13/25) Hyperkalemia (03/13/25) Essential (primary) hypertension (03/13/25) Pulmonary hypertension, unspecified (03/13/25) Nonrheumatic aortic (valve) stenosis (03/13/25) Acute on chronic systolic (congestive) heart failure (03/13/25) Non-pressure chronic ulcer of other part of right foot with necrosis of bone (03/13/25) Other acute osteomyelitis, right ankle and foot (03/13/25) Osteomyelitis, unspecified (03/13/25) Acute kidney failure, unspecified (03/13/25) Chronic kidney disease, stage 3a (03/13/25) Chronic kidney disease, stage 3b (03/13/25) Chronic kidney disease, unspecified (03/13/25) 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 Objective Data Objective Data Vital Signs: Vital Signs Temp Pulse Resp BP Pulse Ox O2 Del Method O2 Flow Rate 36.1 C L 66 20 H 110/94 H 100 Nasal Cannula 2 03/19/25 07:55 03/19/25 08:30 03/19/25 08:30 03/19/25 08:30 03/19/25 08:30 03/19/25 08:30 03/19/25 08:30 Oxygen Flow Rate (L/min) 2 Oxygen Delivery Method Nasal Cannula Weight: 123 kg Body Mass Index (BMI) 53.2 Intake & Output: Intake and Output for Last 24 Hours 03/17/25 03/18/25 03/19/25 23:59 23:59 23:59 Intake Total 650 / 650 640 / 700 110 / 110 Output Total 1300 / 1300 170 / 270 500 / 500 Balance -650 / -650 470 / 430 -390 / -390 Lab / Micro Data 03/19/25 06:25 03/19/25 06:25 Labs: Laboratory Results - last 24 hr 03/18/25 11:30: POC Glucose 117 H 03/18/25 16:10: POC Glucose 136 H 03/18/25 21:09: POC Glucose 130 H 03/19/25 06:22: POC Glucose 99 03/19/25 06:25: WBC 7.4, RBC 3.98 L, Hgb 10.4 L, Hct 36.5 L, MCV 91.7, MCH 26.1 L, MCHC 28.5 L, RDW Std Deviation 58.4 H, RDW Coeff of Leif 17.5 H, Plt Count 82 L, MPV 10.7, Differential Comment Micro: Microbiology 03/16/25 09:25 Wound - Toe Gram Stain - Final 03/16/25 09:25 Wound - Toe Wound Culture - Preliminary Enterococcus casseliflavus (D) Enterococcus avium Gram positive clinton 03/14/25 18:00 Urine Catheter - Catheter Urine Culture - Final Culture exhibits no growth. Physical Exam Const no apparent distress Constitutional Narrative: Somnolent. Opens eyes to voice and then quickly closes them. HEENT head/scalp atraumatic and moist oral mucous membranes Resp normal respiratory effort, no retractions, no use of accessory muscles and clearto auscultation bilaterally Cardio regular rate, regular rhythm, S1 normal heart sound and S2 normal heart sound GI normal to inspection, nondistended, normoactive bowel sounds, soft to palpation,non-tender and non-distended Extremity Extremity Narrative: Right foot wrapped, did not remove. Skin Skin Narrative: Bruising on anterior chest bilaterally up near the clavicles. Tunneled dialysiscatheter in the right upper chest Assessment & Plan Assessment/Plan (1) Acute on chronic renal failure: QUALIFIERS: Acute renal failure type: unspecified Chronic kidney disease stage: stage 3 (moderate) Chronic kidney disease stage 3 subtype: [id number] (GFR 45-59) Qualified Code(s): N17.9 - Acute kidney failure, unspecified; N18.31 - Chronic kidney disease, stage 3a PLAN: Tunneled dialysis cath placed 03/16. Now on HD nephrology following. will need Biopsy at at some point (2) Congestive heart failure: QUALIFIERS: Heart failure chronicity: acute on chronic Heart failure type: systolic Qualified Code(s): I50.23 - Acute on chronic systolic (congestive) heart failure PLAN: acute HFrEF. EF 30% from echo on 12/12 Further fluid removal via dialysis. (3) Right hallux osteomyelitis: PLAN: present on arrival. Patient underwent amputation on March 19. podiatry following on pip/tazo and vancomycin Wound culture from the second showed Enterococcus The Flava's and Enterococcus Avium As Well As a Gram-Positive Clinton. Wound Cultures from March 19 Currently Pending. PLAN: Plan Chronic conditions: * DM2: SSI. * hypothyroidism: levothyroxine * obesity class III: complicates care and recovery. VTE prophylaxis: SQ heparin. Discussed with the patient's at bedside Charges/Coding Visit Charges Inpatient E&M: 15757 Subs Hosp L2 03/19/25 154 <Electronically signed by Fitz Ryan DO> Cosigner Signature (if applicable): CC: ~ Signed [facility] Work Phone: [phone]) 924-117805-05-2025 Consult note Author Bassam Casey [facility] Note Date/Time March 19, 2025 1:49pm [facility] Medical Records Department [address] [place] [address] Anesthesia Postop Eval II 03/19/25 1331 MR#: [id number] Acct: [id number] Name: MISAEL MEDINA Rep #:[id number] : 1950 74 From: Bassam Casey MD PCP: Dr. Donal Castle MD Status:ADM IN Y Race: C Location: [place] [address] 8-1 Anesthesia Postop Eval I Sum Postop Eval Completion status Anesthesia document: Postop Eval 1 completed: Yes Anesthesia Postop Eval I Summary Anesthesia Postop Eval I Summary: Anesthesia Postop Eval I: Assessment Summary Airway patent Yes 03/19/25 13:04 DIRECTOR OF [email or web address].[email or web address] Spontaneous unlabored Yes 03/19/25 13:04 DIRECTOR OF ATHLETICS.SKOBY respirations Mental status Awake,Calm 03/19/25 13:04 DIRECTOR OF ATHLETICS.SKOBY nausea No 03/19/25 13:04 DIRECTOR OF ATHLETICS.SKOBY Vomiting No 03/19/25 13:04 DIRECTOR OF ATHLETICS.SKOBY Anesthesia Postop Eval I: Fluid Summary Crystalloid volume administer 50 03/19/25 13:04 DIRECTOR OF ATHLETICS.SKOBY (ml) Colloids volume administered ( ml) Blood Product volume administered (ml) Total IV fluid infused 50 03/19/25 13:04 DIRECTOR OF ATHLETICS.SKOBY Anesthesia Postop Eval I: Summary Notes Anesthesia Complication No 03/19/25 13:04 DIRECTOR OF ATHLETICS.SKOBY Anesthesia Complication Comment: Post-operative progress note Anesthesia: Postop Eval II Evaluation Mental status: Awake Pain Level: 0 nausea: No Vomiting: No Progress Note Post-operative progress note: Patient had edema in the RUE upon arrival in PACU.Unknown why this extremity became edematous; as patient was dialyzed this AM. Had ortho (Dr. Love) evaluate, he stated that her vascular exam was WNL and he was not concerned about compartment syndrome. We elevated the extremity, and the edema improved significantly and is almost back to baseline. In addition, the patient would have occasional, singular PVCs. Both items will be signed out to the floor team by the PACU nurse taking care of this patient . Complications Anesthesia Complication: No 03/19/25 1349 <Electronically signed by Bassam Casey MD> Date _ Bassam Talamantesigner Signature: Date CC: ~ Signed [facility] Work Phone: 1(283) 954-562605-05-2025 Progress note [facility] Medical Records Department [address] [place] [address] Progress Note - Hospitalist 03/19/25839 MR#: [id number] Acct: [id number] Name: MISAEL MEDINA Rep #:[id number] : 1950 74 From: Fitz Ryan DO PCP: Dr. Donal Castle MD Status:ADM IN Location: [place] [address] Reason for Visit Reason for Visit: Diagnoses Type 2 diabetes mellitus with diabetic polyneuropathy (03/13/25) Hyperkalemia (03/13/25) Essential (primary) hypertension (03/13/25) Pulmonary hypertension, unspecified (03/13/25) Nonrheumatic aortic (valve) stenosis (03/13/25) Acute on chronic systolic (congestive) heart failure (03/13/25) Non-pressure chronic ulcer of other part of right foot with necrosis of bone (03/13/25) Other acute osteomyelitis, right ankle and foot (03/13/25) Osteomyelitis, unspecified (03/13/25) Acute kidney failure, unspecified (03/13/25) Chronic kidney disease, stage 3a (03/13/25) Chronic kidney disease, stage 3b (03/13/25) Chronic kidney disease, unspecified (03/13/25) 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 Objective Data Objective Data Vital Signs: Vital Signs Temp Pulse Resp BP Pulse Ox O2 Del Method O2 Flow Rate 36.1 C L 66 20 H 110/94 H 100 Nasal Cannula 2 03/19/25 07:55 03/19/25 08:30 03/19/25 08:30 03/19/25 08:30 03/19/25 08:30 03/19/25 08:30 03/19/25 08:30 Oxygen Flow Rate (L/min) 2 Oxygen Delivery Method Nasal Cannula Weight: 123 kg Body Mass Index (BMI) 53.2 Intake & Output: Intake and Output for Last 24 Hours 03/17/25 03/18/25 03/19/25 23:59 23:59 23:59 Intake Total 650 / 650 640 / 700 110 / 110 Output Total 1300 / 1300 170 / 270 500 / 500 Balance -650 / -650 470 / 430 -390 / -390 Lab / Micro Data 03/19/25 06:25 03/19/25 06:25 Labs: Laboratory Results - last 24 hr 03/18/25 11:30: POC Glucose 117 H 03/18/25 16:10: POC Glucose 136 H 03/18/25 21:09: POC Glucose 130 H 03/19/25 06:22: POC Glucose 99 03/19/25 06:25: WBC 7.4, RBC 3.98 L, Hgb 10.4 L, Hct 36.5 L, MCV 91.7, MCH 26.1 L, MCHC 28.5 L, RDWStd Deviation 58.4 H, RDW Coeff of Leif 17.5 H, Plt Count 82 L, MPV 10.7, Differential Comment Micro: Microbiology 03/16/25 09:25 Wound - Toe Gram Stain - Final 03/16/25 09:25 Wound - Toe Wound Culture - Preliminary Enterococcus casseliflavus (D) Enterococcus avium Gram positive clinton 03/14/25 18:00 Urine Catheter - Catheter Urine Culture - Final Culture exhibits no growth. Physical Exam Const no apparent distress Constitutional Narrative: Somnolent. Opens eyes to voice and then quickly closes them. HEENT head/scalp atraumatic and moist oral mucous membranes Resp normal respiratory effort, no retractions, no use of accessory muscles and clearto auscultation bilaterally Cardio regular rate, regular rhythm, S1 normal heart sound and S2 normal heart sound GI normal to inspection, nondistended, normoactive bowel sounds, soft to palpation,non-tender and non-distended Extremity Extremity Narrative: Right foot wrapped, did not remove. Skin Skin Narrative: Bruising on anterior chest bilaterally up near the clavicles. Tunneled dialysiscatheter in the right upper chest Assessment & Plan Assessment/Plan (1) Acute on chronic renal failure: QUALIFIERS: Acute renal failure type: unspecified Chronic kidney disease stage: stage 3 (moderate) Chronic kidney disease stage 3 subtype: [id number] (GFR 45-59) Qualified Code(s): N17.9 - Acute kidney failure, unspecified; N18.31 - Chronic kidney disease, stage 3a PLAN: Tunneled dialysis cath placed 03/16. Now on HD nephrology following. will need Biopsy at at some point (2) Congestive heart failure: QUALIFIERS: Heart failure chronicity: acute on chronic Heart failure type: systolic Qualified Code(s): I50.23 - Acute on chronic systolic (congestive) heart failure PLAN: acute HFrEF. EF 30% from echo on 12/12 Further fluid removal via dialysis. (3) Right hallux osteomyelitis: PLAN: present on arrival. Patient underwent amputation on March 19. podiatry following on pip/tazo and vancomycin Wound culture from the second showed Enterococcus The Flava's and Enterococcus Avium As Well As a Gram-Positive Clinton. Wound Cultures from March 19 Currently Pending. PLAN: Plan Chronic conditions: * DM2: SSI. * hypothyroidism: levothyroxine * obesity class III: complicates care and recovery. VTE prophylaxis: SQ heparin. Discussed with the patient's at bedside Charges/Coding Visit Charges Inpatient E&M: 84482 Subs Hosp L2 03/19/25 1540 Cosigner Signature (if applicable): CC: ~ Signed [facility]05-05-2025 Consult note Author Marie York [facility] Note Date/Time March 19, 2025 1:04pm [facility] Medical Records Department [address] [place] [address] Anesthesia Postop Eval I 03/19/25 1301 MR#: [id number] Acct: [id number] Name: MISAEL MEDINA Rep #:[id number] : 1950 74 From: Marie dutton CRNA PCP: Dr. Donal Castle MD Status:ADM IN Y Race: C Location: [place] [address] Anesthesia: Postop Eval I Current Vital Signs Temperature: 97.6 F Pulse Rate: 76 Blood Pressure: 98/45 Respiratory Rate: 16 Pulse Ox: 94 Oxygen Delivery Method: Simple Mask Oxygen Flow Rate (L/min): 8 Assessment Airway patent: Yes Spontaneous unlabored respirations: Yes Mental status: Awake and Calm nausea: No Vomiting: No Anesthesia Complication: No Fluid Hydration Crystalloid volume administer (ml): 50 Total IV fluid infused: 50 Progress Note Anesthesia document: Postop Eval 1 completed: Yes 03/19/25 1304 <Electronically signed by Marie biggs DIRECTOR OF ATHLETICS> Date _ Marie York DIRECTOR OF ATHLETICS Cosigner Signature: Date CC: ~ Signed [facility] Work Phone: [phone]) 292-449505-05-2025 Consult note [facility] Medical Records Department [address] [place] [address] Anesthesia Postop Eval II 03/19/25 1331 MR#: [id number] Acct: [id number] Name: MISAEL MEDINA Rep #:[id number] : 1950 74 From: Bassam Casey MD PCP: Dr. Donal Castle MD Status:ADM IN Y Race: C Location: [place] [address] 8-1 Anesthesia Postop Eval I Sum Postop Eval Completion status Anesthesia document: Postop Eval 1 completed: Yes Anesthesia Postop Eval I Summary Anesthesia Postop Eval I Summary: Anesthesia Postop Eval I: Assessment Summary Airway patent Yes 03/19/25 13:04 DIRECTOR OF ATHLETICS.DANNI Spontaneous unlabored Yes 03/19/25 13:04 DIRECTOR OF ATHLETICS.DANNI respirations Mental status Awake,Calm 03/19/25 13:04 DIRECTOR OF ATHLETICS.DANNI nausea No 03/19/25 13:04 DIRECTOR OF ATHLETICS.DANNI Vomiting No 03/19/25 13:04 DIRECTOR OF ATHLETICS.DANNI Anesthesia Postop Eval I: Fluid Summary Crystalloid volume administer 50 03/19/25 13:04 JEM (ml) Colloids volume administered ( ml) Blood Product volume administered (ml) Total IV fluid infused 50 03/19/25 13:04 JEM Anesthesia Postop Eval I: Summary Notes Anesthesia Complication No 03/19/25 13:04 JEM Anesthesia Complication Comment: Post-operative progress note Anesthesia: Postop Eval II Evaluation Mental status: Awake Pain Level: 0 nausea: No Vomiting: No Progress Note Post-operative progress note: Patient had edema in the RUE upon arrival in PACU.Unknown why this extremity became edematous; as patient was dialyzed this AM. Had ortho (Dr. Love) evaluate, he stated that her vascular exam was WNL and he was not concerned about compartment syndrome. We elevated the extremity, and the edema improved significantly and is almost back to baseline. In addition, the patient would have occasional, singular PVCs. Both items will be signed out to the floor team by theTXCU nurse taking care of this patient . Complications Anesthesia Complication: No 03/19/25 1349 MD> Date _ Bassam Casey MD Cosigner Signature: Date CC: ~ Signed [facility]05-05-2025 Progress note Author Lucas Coronado [facility] Note Date/Time March 19, 2025 11:43a m [facility] Medical Records Department [address] [place] [address] Progress Note 03/19/25 1142 MR#: [id number] Acct: [id number] Name: MISAEL MEDINA Rep #:[id number] : 1950 74 From: Lucas Coronado DPM PCP: Dr. Donal Castle MD Status:ADM IN Location: [place] [address] Objective Data Objective Data Vital Signs: Vital Signs Temp Pulse Resp BP Pulse Ox O2 Del Method O2 Flow Rate 97.1 F L 65 18 111/74 98 Nasal Cannula 2 03/19/25 10:45 03/19/25 10:45 03/19/25 10:45 03/19/25 10:45 03/19/25 11:16 03/19/25 11:22 03/19/25 11:16 Oxygen Flow Rate (L/min) 2 Oxygen Delivery Method Nasal Cannula Weight: 123 kg Body Mass Index (BMI) 53.2 Intake & Output: Intake and Output for Last 24 Hours 03/17/25 03/18/25 03/19/25 23:59 23:59 23:59 Intake Total 650 / 650 640 / 700 110 / 110 Output Total 1300 / 1300 170 / 270 1210 / 1210 Balance -650 / -650 470 / 430 -1100 / -1100 Lab / Micro Data 03/19/25 06:25 03/18/25 05:26 Labs: Laboratory Results - last 24 hr 03/18/25 11:30: POC Glucose 117 H 03/18/25 16:10: POC Glucose 136 H 03/18/25 21:09: POC Glucose 130 H 03/19/25 06:22: POC Glucose 99 03/19/25 06:25: WBC 7.4, RBC 3.98 L, Hgb 10.4 L, Hct 36.5 L, MCV 91.7, MCH 26.1 L, MCHC 28.5 L, RDW Std Deviation 58.4 H, RDW Coeff of Leif 17.5 H, Plt Count 82 L, MPV 10.7, Differential Comment Micro: Microbiology 03/16/25 09:25 Wound - Toe Gram Stain - Final 03/16/25 09:25 Wound - Toe Wound Culture - Preliminary Enterococcus casseliflavus (D) Enterococcus avium Gram positive clinton 03/14/25 18:00 Urine Catheter - Catheter Urine Culture - Final Culture exhibits no growth. Physical Exam Narrative Vascular: Dorsalis pedis posterior tibial pulses palpable 2/4 bilateral lower extremities. Atrophic skin changes with thinning, shiny, taut, absent digital hair growth. Neurologic: Light touch and protective sensation absent to bilateral feet. Dermatologic: Full-thickness ulceration distal tuft of right hallux extending down to the level of distal phalanx. There is noted to be purulent drainage from the wound with periwound hyperkeratosis erythema edema and warmth. No evidence of crepitus or fluctuance when palpating the wound or periwound areas. Swelling inflammation appears limited to the right great toe. There is a partial-thickness ulceration to the dorsal aspect of the left second toe. Stable granular base no acute signs of infection. Musculoskeletal: Hallux limitus right foot contributing to wound formation, hammertoe deformity left second toe. Muscular strength for bilateral lower extremity compartments. Assessment & Plan Assessment/Plan (1) Other acute osteomyelitis, right ankle and foot: PLAN: Exam performed. Patient had hemodialysis this morning will plan for hallux amputation for right side osteomyelitis clearance under [facility] will continue to follow closely post op (2) Type 2 diabetes mellitus with diabetic polyneuropathy: QUALIFIERS: Diabetes mellitus computerized mill recorder insulin use: with computerized mill recorder use Qualified Code(s): E11.42 - Type 2 diabetes mellitus with diabetic polyneuropathy; Z79.4 - 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 (3) Non-pressure chronic ulcer of other part of right foot with necrosis of bone: 03/19/25 1143 <Electronically signed by Lucas Coronado DPM> Lucas Coronado DPM Cosigner Signature (if applicable): CC: ~ Signed [facility] Work Phone: [phone]) 330-639605-05-2025 Consult note Author Bassam Casey [facility] Note Date/Time March 19, 2025 11:22a [facility] Medical Records Department [address] [place] [address] Pre-Anesthesia Evaluation 03/19/25 1027 MR#: [id number] Acct: [id number] Name: MISAEL MEDINA Rep #:[id number] : 1950 74 From: Bassam Casey MD PCP: Dr. Donal Castle MD Status:ADM IN Y Race: C Location: [place] [address] ASA Classification* ASA Classification ASA Classification: 4 (Hx of CKD3, now having dialysis this morning. Also has aortic stenosis (please have phenylephrine ready) . EF 30%. Will do MAC sedationfor this case, please be conservative and slow with medication dosing ) Assessment & Plan Anesthesia* Anesthesia Assessment Anesthesia Assessment: Discussed sedation and/or anesthesia options, risks, benefits, and alternatives with patient/parents/legal guardian/POA. Questions invited. The patient/parents/legal guardian/POA seems to understand and agrees to proceedwith anesthesia plan. Reviewed the physical assessment, medical history, allergy history and patient home medications list prior to surgery/procedure/anesthetic and documented any changes. Performed airway and anesthesia risk assessments. Anesthesia Type Anesthesia Type: MAC (NO versed. Please proceed with small amounts of propofol (20-40 mg at a time) and fentanyl (25 mcg at a time) and titrate slowly ) History Source History Obtained from:: Patient and Chart Anesthesia Focused Assessment* Temperature: 97 F Pulse Rate: 62 Blood Pressure: 108/70 Respiratory Rate: 20 Pulse Ox: 99 Oxygen Delivery Method: Nasal Cannula Oxygen Flow Rate (L/min): 2 Airway Assessment Mouth opens: >3 cm Mallampati Score: III Neck Range of motion (ROM): Full ROM Focused Labs Anesthesia Preop lab: CBC WBC 7.4 K/mm3 (4.4-11.0) 03/19/25 06:03/19/25 RBC 3.98 M/mm3 (4.2-5.4) L 03/19/25 06:25 03/19/25 Hgb 10.4 g/dL (12.0-15.0) L 03/19/25 06: 5 Hct 36.5 % (37-47) L 03/19/25 06:03/19/25 Plt Count 82 K/mm3 (150-450) L 03/19/25 06:25 03/19/25 CHEMISTRY Potassium 4.7 mmol/L (3.3-5.1) 03/18/25 05:03/18/25 Sodium 135 mmol/L (133-145) 03/18/25 05:03/18/25 Magnesium 2.6 mg/dL (1.5-2.2) H 03/13/25 15:11 03/13/25 Phosphorus 5.5 mg/dL (2.7-4.5) H 03/13/25 15:11 03/13/25 BUN 57 mg/dL (4-19) H 03/18/25 05:03/18/25 Creatinine 4.09 mg/dL (0.70-1.20) H 03/18/25 05: Glucose 139 mg/dL (70-99) H 03/18/25 05:26 03/18/25 POC Glucose 99 mg/dL (74-106) 03/19/25 06:22 03/19/25 TSH 0.224 uIU/mL (0.358-3.740) L 10/18/24 05:35 COAG PT 15.5 SECONDS (11.7-14.9) H 03/15/25 10:05 0512/09 Pre-Assessment Diagnosis/Proposed Procedure Planned Operative Procedure(s): insertion hemodialysis catheter Anesthesia History 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 When Was Last Pacemaker Check QUESTION #4 FULL TEXT: You/Your Family Experience fever (hyperthermia) with Anesthesia Last Oral Intake Last Oral intake: Last Oral Intake NPO since 00:00 03/19/25 06:23 Meds taken in AM with sips of Yes 03/16/25 08:00 water? Meds patient instructed to coreg 03/16/25 08:00 take am of surgery PONV PONV - auto inspection specialist: PONV - auto inspection specialist Female HX of Motion Sickness HX of N/V After Surgery Non-Smoker Duration of Surgery greater than 60 minutes Number of Risk Factors PONV Score Height & Weight Height & Weight: Anesthesia: Height & Weight Height 4 ft 11.84 in 03/19/25 10:16 Weight: 123 kg 03/19/25 10:16 Body Mass Index (BMI) 53.2 03/19/25 07:03 Respiratory Assessment Respiratory Assessment - auto inspection specialist: Respiratory Tract Infection Hx - auto inspection specialist Hx Respiratory Tract Infection No 03/16/25 08:00 STOP Sleep Apnea STOP Sleep Apnea - auto inspection specialist: STOP Sleep Apnea - auto inspection specialist Hx Hypertension Yes 03/14/25 14:42 Hx Sleep Apnea No 03/16/25 13:15 CPAP BIPAP Do you snore loudly (louder No 03/13/25 19:56 than talking or can be heard Do you often feel tired/ No 03/13/25 19:56 fatigued/ sleepy during daytime? Has anyone observed you stop No 03/13/25 19:56 breathing during sleep? STOP Results Negative 03/16/25 12:45 QUESTION #5 FULL TEXT : Do you snore loudly (louder than talking or can be heard through closed doors)? Tobacco Use History Tobacco Use History - auto inspection specialist: Tobacco Use History - auto inspection specialist Tobacco Use Smoking Status Never smoker 03/13/25 19:56 Hx Tobacco Use No 03/13/25 19:56 Years Smoking Packs Smoked per Day Smoking Cessation Date was within the last 15 years Hx Smoking Cessation Date Hx Smoking Cessation Counseling Hematologic Medial History Hematologic Hx - auto inspection specialist: Hematologic Medical Hx - cook 3 pastry Hx of Blood Transfusion No 03/13/25 19:56 Hx of Transfusion in last 3 No 03/13/25 19:56 Months Date of Last Transfusion (if within last 3 months) Ever experience any problems No 03/13/25 19:56 with transfusion(s)? Specify any problems Hx of Preganancy in last 3 No 03/13/25 19:56 Months Nurse Filling Out Transfusion RWALKER 03/13/25 19:56 & Questions: Date: 03/13/25 03/13/25 19:56 Time: 20:05 03/13/25 19:56 Patient unable to answer at this time (ie. confused, unrespo /Reproduction History /Reproductive History - auto inspection specialist: /Reproductive Hx- auto inspection specialist Hx Now No 03/16/25 08:00 Gestational Age (in weeks): EDC: Hx Hx Para Hx Section SAB No 03/16/25 08:00 Active Medications Active Medications: Current Medications Generic Name Dose Route Start Last Admin Trade Name Freq PRN Reason Stop Dose Admin Acetaminophen 650 mg 03/18/25 01:33 03/18/25 02:12 Acetaminophen 325 Mg Tablet PO 650 mg Q4H PRN PRN Administration Fever, pain 1-10 Aspirin 81 mg 03/14/25 08:00 03/19/25 09:04 Aspirin 81 Mg Tab.Chew PO Not Given BREAKFAST YOLI Atorvastatin Calcium 10 mg 03/13/25 22:00 03/18/25 21:08 Atorvastatin Calcium 10 Mg Tablet PO 10 mg QHS YOLI Administration Carvedilol 6.25 mg 03/14/25 08:00 03/19/25 09:04 Carvedilol 6.25 Mg Tablet PO Not Given BIDCM YOLI Protocol Furosemide 40 mg 03/17/25 22:00 03/19/25 06:21 Furosemide 40 Mg/4 Ml Vial IV 40 mg Q8 YOLI Administration Protocol Hemodialysis Solution 6 bag 03/19/25 07:15 03/19/25 08:04 Pureflow B 2k Dialysis Soln 1 Bag PF 03/19/25 19:04 6 bag UD YOLI Administration Protocol Heparin Sodium (Porcine) 5,000 unit 03/15/25 22:00 03/19/25 09:04 Heparin Injection (Vial) 5,000 Unit/Ml Vial SC Not Given BID YOLI Heparin Sodium (Porcine) 1,000 - 3,000 units 03/19/25 07:03 03/19/25 08:05 Heparin 10,000 Units/10 Ml Vial IV 03/19/25 19:03 1,600 units X1 PRN Administration HD catheter closing Sodium Chloride 100 mls @ 15 mls/hr 03/14/25 09:02 03/18/25 19:28 IV Infused .Q6H40M PRN Infusion Saline Flush Sodium Chloride 100 mls @ 15 mls/hr 03/14/25 09:02 IV .Q6H40M PRN Additional IVPB Infusion Sodium Chloride 500 mls @ 0 mls/hr 03/16/25 10:15 03/16/25 13:25 IV Infused .Q0M YOLI Infusion KVO Vancomycin IV-PHARMACY TO DOSE 500 mls @ 250 mls/hr 03/16/25 13:41 1 each/ Sodium Chloride IV X1 PRN Rx to Dose Protocol Piperacillin Sod/Tazobactam 50 mls @ 12.5 mls/hr 03/18/25 22:00 03/19/25 01:21 Sod 3.375 gm/ Sodium Chloride IV Infused Q12 YOLI Infusion Vancomycin HCl 1,000 mg in 200 mls @ 200 mls/hr 03/19/25 16:00 Vancomycin IV 03/19/25 16:59 X1 ONE Insulin Human Lispro 0 unit 03/14/25 07:00 03/19/25 06:23 Insulin Lispro 100 Unit/Ml Insuln.Pen SC Not Given ACHS YOLI Protocol Levothyroxine Sodium 100 mcg 03/14/25 06:00 03/19/25 09:04 Levothyroxine 100 Mcg Tablet PO Not Given DAILY@0600 YOLI Nystatin 1 applic 03/13/25 22:00 03/18/25 21:08 Nystatin Powder 15gm Bottle TOPICAL 1 applic BID YOLI Administration Protocol Sodium Chloride 10 - 40 ml 03/14/25 09:02 03/19/25 06:21 0.9% Saline Lock 10 Ml Syringe IV 10 ml UD PRN Administration SALINE FLUSH Sodium Chloride 1,000 ml 03/19/25 07:05 03/19/25 08:04 0.9% Normal Saline 1,000 Ml Iv.Soln. OPERA.SITE 03/19/25 19:03 1,000 ml X1 YOLI Administration Sodium Chloride 200 ml 03/19/25 07:03 0.9% Normal Saline 1,000 Ml Iv.Soln. IV 03/19/25 19:03 X1 PRN to maintain SBP >90mmHg during Dialysis Vancomycin Protocol 1 lab 03/21/25 05:00 Vancomycin Trough/Random Due MC 03/21/25 07:00 DAILY YOLI PFSH Medical History Congestive heart failure Hypothyroidism Osteoporosis Morbid obesity with BMI of 45.0-49.9, adult Wears glasses Post-menopausal Thyroid disease Diabetes Uses wheelchair Ambulates with cane Arthritis High cholesterol Back pain TIA (transient ischemic attack) Dietary restriction Non-smoker History of pain when walking History of transesophageal echocardiography (DESTIN) Cardiology follow-up encounter Hypertension Hypertension Diabetes Home Medications ?Medication ?Instructions ?Recorded ?Last Taken ?Type atorvastatin 10 mg tablet 10 mg PO QHS cholesterol 03/12/25 History levothyroxine 100 mcg tablet 100 mcg PO DAILY thyroid 08/31/22 03/13/25 History (Synthroid) aspirin 81 mg chewable tablet 81 mg PO DAILYCM 90 days #90 tabs 10/21/24 03/13/25 Rx carvedilol 6.25 mg tablet (Coreg) 6.25 mg PO BID #60 t abs 12/01/24 03/13/25 Rx dapagliflozin propanediol 10 mg 10 mg PO QDAY #30 tabs 03/12/25 Unknown Rx tablet (Farxiga) furosemide 40 mg tablet 40 mg PO QAM #30 tabs 03/13/25 Rx metformin 500 mg tablet 500 mg PO BID 03/12/2503/13 History Allergy/AdvReac Type Severity Reaction Status Date / Time No Known Allergies Allergy Verified 03/13/25 13:58 Family History Mother Hypertension Father Heart disease Surgical History Hx of colonoscopy Hx of cholecystectomy H/O: hysterectomy Social History household members: spouse Smoking Status: Never smoker alcohol intake: never substance use type: does not use caffeine: No Review of Systems (Anesthesia) ROS Narrative System reviewed and no additional complaints, except as documented. Physical Exam Narrative lower extremity edema Const alert and oriented x3 Nutritional Appearance: morbidly obese Resp normal respiratory effort, normal air movement and clear to auscultation bilaterally Cardio regular rate and regular rhythm 03/19/25 1122 <Electronically signed by Bassam Casey MD> Date _ Bassam Casey MD Cosigner Signature: Date CC: ~ Signed [facility] Work Phone: [phone] 279-930905-05-2025 Consult note [facility] Medical Records Department [address] [place] [address] Anesthesia Postop Eval I 03/19/25 1301 MR#: [id number] Acct: [id number] Name: MISAEL MEDINA Rep #:[id number] : 1950 74 From: Marie dutton CRNA PCP: Dr. Donal Castle MD Status:ADM IN Y Race: C Location: [place] [address] 8 Anesthesia: Postop Eval I Current Vital Signs Temperature: 97.6 F Pulse Rate: 76 Blood Pressure: 98/45 Respiratory Rate: 16 Pulse Ox: 94 Oxygen Delivery Method: Simple Mask Oxygen Flow Rate (L/min): 8 Assessment Airway patent: Yes Spontaneous unlabored respirations: Yes Mental status: Awake and Calm nausea: No Vomiting: No Anesthesia Complication: No Fluid Hydration Crystalloid volume administer (ml): 50 Total IV fluid infused: 50 Progress Note Anesthesia document: Postop Eval 1 completed: Yes 03/19/25 1304 kalyan DIRECTOR OF ATHLETICS> Date _ Marie Yrok DIRECTOR OF ATHLETICS Cosigner Signature: Date CC: ~ Signed [facility]05-05-2025 Procedure note [facility] Medical Records Department [address] [place] [id number] Operative Report 03/19/25 1233 MR#: [id number] Acct: [id number] Name: MISAEL MEDINA Rep #:[id number] : 1950 74 From: Lucas Coronado DPM PCP: Dr. Donal Castle MD Status:ADM IN Location: [place] [address] Problems Associated Problem List Diagnoses (1) Other acute osteomyelitis, right ankle and foot: (2) Non-pressure chronic ulcer of other part of right foot with necrosis of bone: Operative Report (Standard) Operative Information Date of Procedure: 03/19/25 Pre-Operative Diagnosis: 1) Right hallux osteomyelitis 2) Full thickness wound down to bone, right hallux Post-Operative Diagnosis: same Surgery/Procedure Performed: 1) Right hallux amputation 2) advancement flap closure, right hallux amputation site site superintendent: No Type of Anesthesia: Local and MAC RN Documented Start/Stop Times: Operation Date: 03/19/25 11:30 Case Time Into Pre-Op 03/19/25 11:05 Anesthesia Start 03/19/25 11:48 Into Room 03/19/25 11:48 Procedure Start 03/19/25 12:09 Procedure End 03/19/25 12:30 Procedure Start Time: 12:00 Procedure Stop Time: 12:30 Select all DRAINS/GRAFTS/IMPLANTS that apply: None Special Medications: 30cc marcaine plain Estimated Blood Loss: minimal Specimen collected: Yes Description of specimen(s) removed: right hallux bone for culture and pathology Description of surgery: Procedure: * Right partial hallux amputation * Resection of distal phalanx and partial proximal phalanx (due to osteomyelitis) * Advancement flap closure using fishmouth incision (CPT 61677) Indications: Patient with diabetic neuropathy, microvascular disease, and end-stage renal disease (ESRD) presented with osteomyelitis of the distal phalanx of the right hallux. Due to non-resolving infection and non-viable tissue, surgical amputation was indicated. Anesthesia: * MAC anesthesia * Gutierrez block performed with 30 cc of 0.5% Marcaine plain * No tourniquet used Intraoperative Findings: * Osteomyelitis confirmed in the distal phalanx * Surrounding soft tissue compromised but amenable to flap closure Procedure Details: A fishmouth incision was performed for adequate exposure and soft tissue advancement. The distal phalanx was resected and sent for bone culture and pathology. Additional resection of the proximal phalangeal head was carried out using bone-cutting forceps to allow for adequate soft tissue closure. Advancement flap was mobilized, and layered closure was performed: * 3-0 Monocryl for subcutaneous tissue * 3-0 Prolene simple interrupted sutures for skin Hemostasis: Achieved with minimal blood loss. Wound Dressing: Betadine, Adaptic, 4x4 gauze, Kerlix wrap, and Brett bandage applied. Specimens Sent: * Distal phalanx to pathology and for bone culture Estimated Blood Loss: Minimal Complications: None Surgical Findings: as dictated above Complications Complications: No 03/19/25 1239 Cosigner Signature (if applicable): CC: DPM Dr. Lucas Coronado; Dr. Seth Garnica DO; Dr. Donal Castle MD; Dr. Lorraine Grande MD; Dr. Joao Francois MD; Dr. Bandar Linares MD; Dr. Milton Muñoz MD~ Signed [facility]05-05-2025 Progress note [facility] Medical Records Department [address] [place] [address] Progress Note 03/19/25 1142 MR#: [id number] Acct: [id number] Name: MISAEL MEDINA Rep #:[id number] : 1950 74 From: Lucas Coronado DPM PCP: Dr. Donal Castle MD Status:ADM IN Location: [place] [address] Objective Data Objective Data Vital Signs: Vital Signs Temp Pulse Resp BP Pulse Ox O2 Del Method O2 Flow Rate 97.1 F L 65 18 111/74 98 Nasal Cannula 2 03/19/25 10:45 03/19/25 10:45 03/19/25 10:45 03/19/25 10:45 03/19/25 11:16 03/19/25 11:22 03/19/25 11:16 Oxygen Flow Rate (L/min) 2 Oxygen Delivery Method Nasal Cannula Weight: 123 kg Body Mass Index (BMI) 53.2 Intake & Output: Intake and Output for Last 24 Hours 03/17/25 03/18/25 03/19/25 23:59 23:59 23:59 Intake Total 650 / 650 640 / 700 110 / 110 Output Total 1300 / 1300 170 / 270 1210 / 1210 Balance -650 / -650 470 / 430 -1100 / -1100 Lab / Micro Data 03/19/25 06:25 03/18/25 05:26 Labs: Laboratory Results - last 24 hr 03/18/25 11:30: POC Glucose 117 H 03/18/25 16:10: POC Glucose 136 H 03/18/25 21:09: POC Glucose 130 H 03/19/25 06:22: POC Glucose 99 03/19/25 06:25: WBC 7.4, RBC 3.98 L, Hgb 10.4 L, Hct 36.5 L, MCV 91.7, MCH 26.1 L, MCHC 28.5 L, RDWStd Deviation 58.4 H, RDW Coeff of Leif 17.5 H, Plt Count 82 L, MPV 10.7, Differential Comment Micro: Microbiology 03/16/25 09:25 Wound - Toe Gram Stain - Final 03/16/25 09:25 Wound - Toe Wound Culture - Preliminary Enterococcus casseliflavus (D) Enterococcus avium Gram positive clinton 03/14/25 18:00 Urine Catheter - Catheter Urine Culture - Final Culture exhibits no growth. Physical Exam Narrative Vascular: Dorsalis pedis posterior tibial pulses palpable 2/4 bilateral lower extremities. Atrophicskin changes with thinning, shiny, taut, absent digital hair growth. Neurologic: Light touch and protective sensation absent to bilateral feet. Dermatologic: Full-thickness ulceration distal tuft of right hallux extending down to the level of distal phalanx. There is noted to be purulent drainage from the wound with periwound hyperkeratosis erythema edema and warmth. No evidence of crepitus or fluctuance when palpating the wound or periwound areas. Swelling inflammation appears limited to the right great toe. There is a partial-thicknessulceration to the dorsal aspect of the left second toe. Stable granular base no acute signs of infection. Musculoskeletal: Hallux limitus right foot contributing to wound formation, hammertoe deformity left second toe. Muscular strength for bilateral lower extremity compartments. Assessment & Plan Assessment/Plan (1) Other acute osteomyelitis, right ankle and foot: PLAN: Exam performed. Patient had hemodialysis this morning will plan for hallux amputation for right side osteomyelitis clearance under [facility] will continue to follow closely post op (2) Type 2 diabetes mellitus with diabetic polyneuropathy: QUALIFIERS: Diabetes mellitus custodial insulin use: with computerized mill recorder use Qualified Code(s): E11.42 -Type 2 diabetes mellitus with diabetic polyneuropathy; Z79.4 - 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 (3) Non-pressure chronic ulcer of other part of right foot with necrosis of bone: 03/19/25 1143 Lucas Coronado DPM Cosigner Signature (if applicable): CC: ~ Signed [facility]05-05-2025 Consult note [facility] Medical Records Department [address] [place] [address] Pre-Anesthesia Evaluation 03/19/25 1027 MR#: [id number] Acct: [id number] Name: MISAEL MEDINA Rep #:[id number] : 1950 74 From: Bassam Casey MD PCP: Dr. Donal Castle MD Status:ADM IN Y Race: C Location: [place] [address]1 ASA Classification* ASA Classification ASA Classification: 4 (Hx of CKD3, now having dialysis this morning. Also has aortic stenosis (please have phenylephrine ready) . EF 30%. Will do MAC sedationfor this case, please be conservative andslow with medication dosing ) Assessment & Plan Anesthesia* Anesthesia Assessment Anesthesia Assessment: Discussed sedation and/or anesthesia options, risks, benefits, and alternatives with patient/parents/legal guardian/POA. Questions invited. The patient/parents/legal guardian/POA seems to understand and agrees to proceedwith anesthesia plan. Reviewed the physical assessment, medical history, allergy history and patient home medications list prior to surgery/procedure/anesthetic and documented any changes. Performed airway and anesthesia risk assessments. Anesthesia Type Anesthesia Type: MAC (NO versed. Please proceed with small amounts of propofol (20-40 mg at a time)and fentanyl (25 mcg at a time) and titrate slowly ) History Source History Obtained from:: Patient and Chart Anesthesia Focused Assessment* Temperature: 97 F Pulse Rate: 62 Blood Pressure: 108/70 Respiratory Rate: 20 Pulse Ox: 99 Oxygen Delivery Method: Nasal Cannula Oxygen Flow Rate (L/min): 2 Airway Assessment Mouth opens: >3 cm Mallampati Score: III Neck Range of motion (ROM): Full ROM Focused Labs Anesthesia Preop lab: CBC WBC 7.4 K/mm3 (4.4-11.0) 03/19/25 06:25 03/19/25 RBC 3.98 M/mm3 (4.2-5.4) L 03/19/25 06:25 03/19/25 Hgb 10.4 g/dL (12.0-15.0) L 03/19/25 06:25 5 Hct 36.5 % (37-47) L 03/19/25 06:25 03/19/25 Plt Count 82 K/mm3 (150-450) L 03/19/25 06:25 03/19/25 CHEMISTRY Potassium 4.7 mmol/L (3.3-5.1) 03/18/25 05:26 03/18/25 Sodium 135 mmol/L (133-145) 03/18/25 05:26 03/18/25 Magnesium 2.6 mg/dL (1.5-2.2) H 03/13/25 15:11 03/13/25 Phosphorus 5.5 mg/dL (2.7-4.5) H 03/13/25 15:11 03/13/25 BUN 57 mg/dL (4-19) H 03/18/25 05:26 03/18/25 Creatinine 4.09 mg/dL (0.70-1.20) H 03/18/25 05:26 Glucose 139 mg/dL (70-99) H 03/18/25 05:26 03/18/25 POC Glucose 99 mg/dL (74-106) 03/19/25 06:22 03/19/25 TSH 0.224 uIU/mL (0.358-3.740) L 10/18/24 05:35 COAG PT 15.5 SECONDS (11.7-14.9) H 03/15/25 10:05 0512/09 Pre-Assessment Diagnosis/Proposed Procedure Planned Operative Procedure(s): insertion hemodialysis catheter Anesthesia History 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 When Was Last Pacemaker Check QUESTION #4 FULL TEXT: You/Your Family Experience fever (hyperthermia) with Anesthesia Last Oral Intake Last Oral intake: Last Oral Intake NPO since 00:00 03/19/25 06:23 Meds taken in AM with sips of Yes 03/16/25 08:00 water? Meds patient instructed to coreg 03/16/25 08:00 take am of surgery PONV PONV - auto inspection specialist: PONV - auto inspection specialist Female HX of Motion Sickness HX of N/V After Surgery Non-Smoker Duration of Surgery greater than 60 minutes Number of Risk Factors PONV Score Height & Weight Height & Weight: Anesthesia: Height & Weight Height 4 ft 11.84 in 03/19/25 10:16 Weight: 123 kg 03/19/25 10:16 Body Mass Index (BMI) 53.2 03/19/25 07:03 Respiratory Assessment Respiratory Assessment - auto inspection specialist: Respiratory Tract Infection Hx - auto inspection specialist Hx Respiratory Tract Infection No 03/16/25 08:00 STOP Sleep Apnea STOP Sleep Apnea - auto inspection specialist: STOP Sleep Apnea - auto inspection specialist Hx Hypertension Yes 03/14/25 14:42 Hx Sleep Apnea No 03/16/25 13:15 CPAP BIPAP Do you snore loudly (louder No 03/13/25 19:56 than talking or can be heard Do you often feel tired/ No 03/13/25 19:56 fatigued/ sleepy during daytime? Has anyone observed you stop No 03/13/25 19:56 breathing during sleep? STOP Results Negative 03/16/25 12:45 QUESTION #5 FULL TEXT : Do you snore loudly (louder than talking or can be heard through closeddoors)? Tobacco Use History Tobacco Use History - auto inspection specialist: Tobacco Use History - auto inspection specialist Tobacco Use Smoking Status Never smoker 03/13/25 19:56 Hx Tobacco Use No 03/13/25 19:56 Years Smoking Packs Smoked per Day Smoking Cessation Date was within the last 15 years Hx Smoking Cessation Date Hx Smoking Cessation Counseling Hematologic Medial History Hematologic Hx - auto inspection specialist: Hematologic Medical Hx - cook 3 pastry Hx of Blood Transfusion No 03/13/25 19:56 Hx of Transfusion in last 3 No 03/13/25 19:56 Months Date of Last Transfusion (if within last 3 months) Ever experience any problems No 03/13/25 19:56 with transfusion(s)? Specify any problems Hx of Preganancy in last 3 No 03/13/25 19:56 Months Nurse Filling Out Transfusion RWALKER 03/13/25 19:56 & Questions: Date: 03/13/25 03/13/25 19:56 Time: 20:05 03/13/25 19:56 Patient unable to answer at this time (ie. confused, unrespo /Reproduction History /Reproductive History - auto inspection specialist: /Reproductive Hx- auto inspection specialist Hx Now No 03/16/25 08:00 Gestational Age (in weeks): EDC: Hx Hx Para Hx Section SAB No 03/16/25 08:00 Active Medications Active Medications: Current Medications Generic Name Dose Route Start Last Admin Trade Name Freq PRN Reason Stop Dose Admin Acetaminophen 650 mg 03/18/25 01:33 03/18/25 02:12 Acetaminophen 325 Mg Tablet PO 650 mg Q4H PRN PRN Administration Fever, pain 1-10 Aspirin 81 mg 03/14/25 08:00 03/19/25 09:04 Aspirin 81 Mg Tab.Chew PO Not Given BREAKFAST YOLI Atorvastatin Calcium 10 mg 03/13/25 22:00 03/18/25 21:08 Atorvastatin Calcium 10 Mg Tablet PO 10 mg QHS YOLI Administration Carvedilol 6.25 mg 03/14/25 08:00 03/19/25 09:04 Carvedilol 6.25 Mg Tablet PO Not Given BIDCM YOLI Protocol Furosemide 40 mg 03/17/25 22:00 03/19/25 06:21 Furosemide 40 Mg/4 Ml Vial IV 40 mg Q8 YOLI Administration Protocol Hemodialysis Solution 6 bag 03/19/25 07:15 03/19/25 08:04 Pureflow B 2k Dialysis Soln 1 Bag PF 03/19/25 19:04 6 bag UD YOLI Administration Protocol Heparin Sodium (Porcine) 5,000 unit 03/15/25 22:00 03/19/25 09:04 Heparin Injection (Vial) 5,000 Unit/Ml Vial SC Not Given BID YOLI Heparin Sodium (Porcine) 1,000 - 3,000 units 03/19/25 07:03 03/19/25 08:05 Heparin 10,000 Units/10 Ml Vial IV 03/19/25 19:03 1,600 units X1 PRN Administration HD catheter closing Sodium Chloride 100 mls @ 15 mls/hr 03/14/25 09:02 03/18/25 19:28 IV Infused .Q6H40M PRN Infusion Saline Flush Sodium Chloride 100 mls @ 15 mls/hr 03/14/25 09:02 IV .Q6H40M PRN Additional IVPB Infusion Sodium Chloride 500 mls @ 0 mls/hr 03/16/25 10:15 03/16/25 13:25 IV Infused .Q0M YOLI Infusion KVO Vancomycin IV-PHARMACY TO DOSE 500 mls @ 250 mls/hr 03/16/25 13:41 1 each/ Sodium Chloride IV X1 PRN Rx to Dose Protocol Piperacillin Sod/Tazobactam 50 mls @ 12.5 mls/hr 03/18/25 22:00 03/19/25 01:21 Sod 3.375 gm/ Sodium Chloride IV Infused Q12 YOLI Infusion Vancomycin HCl 1,000 mg in 200 mls @ 200 mls/hr 03/19/25 16:00 Vancomycin IV 03/19/25 16:59 X1 ONE Insulin Human Lispro 0 unit 03/14/25 07:00 03/19/25 06:23 Insulin Lispro 100 Unit/Ml Insuln.Pen SC Not Given ACHS [facility] Protocol Levothyroxine Sodium 100 mcg 03/14/25 06:00 03/19/25 09:04 Levothyroxine 100 Mcg Tablet PO Not Given DAILY@0600 YOIL Nystatin 1 applic 03/13/25 22:00 03/18/25 21:08 Nystatin Powder 15gm Bottle TOPICAL 1 applic BID YOLI Administration Protocol Sodium Chloride 10 - 40 ml 03/14/25 09:02 03/19/25 06:21 0.9% Saline Lock 10 Ml Syringe IV 10 ml UD PRN Administration SALINE FLUSH Sodium Chloride 1,000 ml 03/19/25 07:05 03/19/25 08:04 0.9% Normal Saline 1,000 Ml Iv.Soln. OPERA.SITE 03/19/25 19:03 1,000 ml X1 YOLI Administration Sodium Chloride 200 ml 03/19/25 07:03 0.9% Normal Saline 1,000 Ml Iv.Soln. IV 03/19/25 19:03 X1 PRN to maintain SBP >90mmHg during Dialysis Vancomycin Protocol 1 lab 03/21/25 05:00 Vancomycin Trough/Random Due MC 03/21/25 07:00 DAILY YOLI PFSH Medical History Congestive heart failure Hypothyroidism Osteoporosis Morbid obesity with BMI of 45.0-49.9, adult Wears glasses Post-menopausal Thyroid disease Diabetes Uses wheelchair Ambulates with cane Arthritis High cholesterol Back pain TIA (transient ischemic attack) Dietary restriction Non-smoker History of pain when walking History of transesophageal echocardiography (DESTIN) Cardiology follow-up encounter Hypertension Hypertension Diabetes Home Medications ?Medication ?Instructions ?Recorded ?Last Taken ?Type atorvastatin 10 mg tablet 10 mg PO QHS cholesterol 03/12/25 History levothyroxine 100 mcg tablet 100 mcg PO DAILY thyroid 08/31/22 03/13/25 History (Synthroid) aspirin 81 mg chewable tablet 81 mg PO DAILYCM 90 days #90 tabs 10/21/24 03/13/25 Rx carvedilol 6.25 mg tablet (Coreg) 6.25 mg PO BID #60 t abs 12/01/24 03/13/25 Rx dapagliflozin propanediol 10 mg 10 mg PO QDAY #30 tabs 03/12/25 Unknown Rx tablet (Farxiga) furosemide 40 mg tablet 40 mg PO QAM #30 tabs 03/13/25 Rx metformin 500 mg tablet 500 mg PO BID 03/12/2503/13 History Allergy/AdvReac Type Severity Reaction Status Date / Time No Known Allergies Allergy Verified 03/13/25 13:58 Family History Mother Hypertension Father Heart disease Surgical History Hx of colonoscopy Hx of cholecystectomy H/O: hysterectomy Social History household members: spouse Smoking Status: Never smoker alcohol intake: never substance use type: does not use caffeine: No Review of Systems (Anesthesia) ROS Narrative System reviewed and no additional complaints, except as documented. Physical Exam Narrative lower extremity edema Const alert and oriented x3 Nutritional Appearance: morbidly obese Resp normal respiratory effort, normal air movement and clear to auscultation bilaterally Cardio regular rate and regular rhythm 03/19/25 1122 > Date _ Bassam Talamantesignpriscila Signature: Date CC: ~ Signed [facility]05-04-2025 Progress note Author Jayaprakas [facility] Note Date/Time March 18, 2025 6:44pm [facility] Medical Records Department [address] [place] [address] Progress Note - Nephrology 03/18/25 1843 MR#: [id number] Acct: [id number] Name: MISAEL MEDINA Rep #:[id number] : 1950 74 From: Lorraine reyez MD PCP: Dr. Donal Castle MD Status:ADM IN Location: [place] [address] Subjective Subjective no new complaints. breathing is ok. Objective Data Objective Data Vital Signs: Vital Signs Temp Pulse Resp BP Pulse Ox O2 Del Method O2 Flow Rate 98.4 F 52 L 20 H 113/62 99 Nasal Cannula 2 03/18/25 16:45 03/18/25 16:45 03/18/25 16:45 03/18/25 16:45 03/18/25 16:45 03/18/25 16:45 03/18/25 16:45 Oxygen Flow Rate (L/min) 2 Oxygen Delivery Method Nasal Cannula Weight: 123 kg Body Mass Index (BMI) 53.2 Intake & Output: Intake and Output for Last 24 Hours 03/16/25 03/17/25 03/18/25 23:59 23:59 23:59 Intake Total 1115 / 1115 650 / 650 540 / 540 Output Total 1080 / 1130 1300 / 1300 170 / 170 Balance 35 / -15 -650 / -650 370 / 370 Lab / Micro Data 03/18/25 05:26 03/18/25 05:26 Labs: Laboratory Results - last 24 hr 03/17/25 20:02: POC Glucose 185 H 03/18/25 05:26: WBC 8.0, RBC 4.08 L, Hgb 10.7 L, Hct 35.8 L, MCV 87.7, MCH 26.2 L, MCHC 29.9 L, RDW Std Deviation 54.8 H, RDW Coeff of Leif 17.2 H, Plt Count 157, MPV 8.9, Sodium 135, Potassium 4.7, Chloride 106, Carbon Dioxide 17.9 L, Anion Gap 11, BUN 57 H, Creatinine 4.09 H, Estim Creat Clear Calc 14.29 L, Est GFR (MDRD) Non- Af 11 L, BUN/Creatinine Ratio 13.8, Glucose 139 H, Calcium 7.8 03/18/25 06:35: POC Glucose 130 H 03/18/25 11:30: POC Glucose 117 H 03/18/25 16:10: POC Glucose 136 H Micro: Microbiology 03/16/25 09:25 Wound - Toe Gram Stain - Final 03/16/25 09:25 Wound - Toe Wound Culture - Preliminary Gram Positive Cocci Gram Positive Cocci#2 Gram positive clinton 03/14/25 18:00 Urine Catheter - Catheter Urine Culture - Final Culture exhibits no growth. Physical Exam Narrative Has anasarca Const alert, oriented x3 and no apparent distress Nutritional Appearance: morbidly obese HEENT normocephalic Neck no lymphadenopathy Resp no use of accessory muscles Auscultation: diminished lung sounds Cardio no murmurs GI non-tender and non-distended Auscultation: normoactive bowel sounds Assessment & Plan Assessment/Plan (1) Acute on chronic renal failure: QUALIFIERS: Acute renal failure type: unspecified Chronic kidney disease stage: stage 3 (moderate) Chronic kidney disease stage 3 subtype: [id number] (GFR 45-59) Qualified Code(s): N17.9 - Acute kidney failure, unspecified; N18.31 - Chronic kidney disease, stage 3a PLAN: Acute kidney injury with low fractional excretion of sodium. Serologies are pending. Started on dialysis due to lack of urine output and the rising creatinine. second treatment 03/17/25. will plan for HD again 03/19/25 Needs renal biopsy. unexplained renal failure she is agreeable. order placed 03/18/251843 <Electronically signed by Lorraine Grande MD> Cosigner Signature (if applicable): CC: ~ Signed [facility] Work Phone: 1(445) 168-598405-04-2025 Progress note [facility] Medical Records Department [address] [place] [address] Progress Note - Nephrology 03/18/251842 MR#: [id number] Acct: [id number] Name: MISAEL MEDINA Rep #:[id number] : 1950 74 From: Lorraine reyez MD PCP: Dr. Donal Castle MD Status:ADM IN Location: [place] [id number]- Subjective Subjective no new complaints. breathing is ok. Objective Data Objective Data Vital Signs: Vital Signs Temp Pulse Resp BP Pulse Ox O2 Del Method O2 Flow Rate 98.4 F 52 L 20 H 113/62 99 Nasal Cannula 2 03/18/25 16:45 03/18/25 16:45 03/18/25 16:45 03/18/25 16:45 03/18/25 16:45 03/18/25 16:45 03/18/25 16:45 Oxygen Flow Rate (L/min) 2 Oxygen Delivery Method Nasal Cannula Weight: 123 kg Body Mass Index (BMI) 53.2 Intake & Output: Intake and Output for Last 24 Hours 03/16/25 03/17/25 03/18/25 23:59 23:59 23:59 Intake Total 1115 / 1115 650 / 650 540 / 540 Output Total 1080 / 1130 1300 / 1300 170 / 170 Balance 35 / -15 -650 / -650 370 / 370 Lab / Micro Data 03/18/25 05:26 03/18/25 05:26 Labs: Laboratory Results - last 24 hr 03/17/25 20:02: POC Glucose 185 H 03/18/25 05:26: WBC 8.0, RBC 4.08 L, Hgb 10.7 L, Hct 35.8 L, MCV 87.7, MCH 26.2 L, MCHC 29.9 L, RDWStd Deviation 54.8 H, RDW Coeff of Leif 17.2 H, Plt Count 157, MPV 8.9, Sodium 135, Potassium 4.7, Chloride 106, Carbon Dioxide 17.9 L, Anion Gap 11, BUN 57 H, Creatinine 4.09 H, Estim Creat Clear Calc 14.29 L, Est GFR (MDRD) Non-Af 11 L, BUN/Creatinine Ratio 13.8, Glucose 139 H, Calcium 7.8 03/18/25 06:35: POC Glucose 130 H 03/18/25 11:30: POC Glucose 117 H 03/18/25 16:10: POC Glucose 136 H Micro: Microbiology 03/16/25 09:25 Wound - Toe Gram Stain - Final 03/16/25 09:25 Wound - Toe Wound Culture - Preliminary Gram Positive Cocci Gram Positive Cocci#2 Gram positive clinton 03/14/25 18:00 Urine Catheter - Catheter Urine Culture - Final Culture exhibits no growth. Physical Exam Narrative Has anasarca Const alert, oriented x3 and no apparent distress Nutritional Appearance: morbidly obese HEENT normocephalic Neck no lymphadenopathy Resp no use of accessory muscles Auscultation: diminished lung sounds Cardio no murmurs GI non-tender and non-distended Auscultation: normoactive bowel sounds Assessment & Plan Assessment/Plan (1) Acute on chronic renal failure: QUALIFIERS: Acute renal failure type: unspecified Chronic kidney disease stage: stage 3 (moderate) Chronic kidney disease stage 3 subtype: [id number] (GFR 45-59) Qualified Code(s): N17.9 - Acute kidney failure, unspecified; N18.31 - Chronic kidney disease, stage 3a PLAN: Acute kidney injury with low fractional excretion of sodium. Serologies are pending. Started on dialysis due to lack of urine output and the rising creatinine. second treatment 03/17/25. will plan for HD again 03/19/25 Needs renal biopsy. unexplained renal failure she is agreeable. order placed 03/18/25 3744 Cosigner Signature (if applicable): CC: ~ Signed [facility]05-04-2025 Progress note Author [facility] Note Date/Time March 18, 2025 10:03a [facility] Medical Records Department [address] [place] [address] Progress Note - Hospitalist 03/18/25 0935 MR#: [id number] Acct: [id number] Name: MISAEL MEDINA Renée Rep #:[id number] : 1950 74 From: Seth mai DO PCP: Dr. Donal Castle MD Status:ADM IN Location: [place] [id number] Reason for Visit Reason for Visit: Diagnoses Type 2 diabetes mellitus with diabetic polyneuropathy (03/13/25) Hyperkalemia (03/13/25) Essential (primary) hypertension (03/13/25) Pulmonary hypertension, unspecified (03/13/25) Nonrheumatic aortic (valve) stenosis (03/13/25) Acute on chronic systolic (congestive) heart failure (03/13/25) Non-pressure chronic ulcer of other part of right foot with necrosis of bone (03/13/25) Other acute osteomyelitis, right ankle and foot (03/13/25) Osteomyelitis, unspecified (03/13/25) Acute kidney failure, unspecified (03/13/25) Chronic kidney disease, stage 3a (03/13/25) Chronic kidney disease, stage 3b (03/13/25) Chronic kidney disease, unspecified (03/13/25) 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 (03/13/25) Subjective Subjective Saw patient at bedside this morning. Patient appeared similar today to previousdays. Was sitting back comfortably in bedside chair and appeared somewhat lethargic but was otherwise answering questions with short appropriate responses. Denied any new concerns this morning. Objective Data Objective Data Vital Signs: Vital Signs Temp Pulse Resp BP Pulse Ox O2 Del Method O2 Flow Rate 97 F L 60 18 130/80 H 96 Nasal Cannula 2 03/18/25 07:59 03/18/25 07:59 03/18/25 07:59 03/18/25 07:59 03/18/25 07:59 03/18/25 08:06 03/18/25 08:06 Oxygen Flow Rate (L/min) 2 Oxygen Delivery Method Nasal Cannula Weight: 119.3 kg Body Mass Index (BMI) 51.6 Intake & Output: Intake and Output for Last 24 Hours 03/16/25 03/17/25 03/18/25 23:59 23:59 23:59 Intake Total 1115 / 1115 650 / 650 250 / 250 Output Total 1080 / 1130 1300 / 1300 50 / 50 Balance 35 / -15 -650 / -650 200 / 200 Lab / Micro Data 03/18/25 05:26 03/18/25 05:26 Labs: Laboratory Results - last 24 hr 03/17/25 08:07: POC Glucose 104 03/17/25 11:06: POC Glucose 155 H 03/17/25 16:18: POC Glucose 167 H 03/17/25 20:02: POC Glucose 185 H 03/18/25 05:26: WBC 8.0, RBC 4.08 L, Hgb 10.7 L, Hct 35.8 L, MCV 87.7, MCH 26.2 L, MCHC 29.9 L, RDW Std Deviation 54.8 H, RDW Coeff of Leif 17.2 H, Plt Count 157, MPV 8.9, Sodium 135, Potassium 4.7, Chloride 106, Carbon Dioxide 17.9 L, Anion Gap 11, BUN 57 H, Creatinine 4.09 H, Estim Creat Clear Calc 14.29 L, Est GFR (MDRD) Non- Af 11 L, BUN/Creatinine Ratio 13.8, Glucose 139 H, Calcium 7.8 03/18/25 06:35: POC Glucose 130 H Micro: Microbiology 03/14/25 18:00 Urine Catheter - Catheter Urine Culture - Final Culture exhibits no growth. 03/16/25 09:25 Wound - Toe Gram Stain - Final Physical Exam Const alert, oriented x3 and no apparent distress Constitutional Narrative: Elderly female, class III obesity, mildly fatigued and lethargic appearing, A and O x 3 but only answering questions with short responses, otherwise sitting back comfortably in bedside chair and in no acute distress. General Appearance: cooperative and comfortable HEENT normocephalic, head/scalp atraumatic, hearing grossly normal bilaterally, nasal mucous membranes and turbinates normal and moist oral mucous membranes Eyes PERRL, EOMs intact bilaterally and conjunctivae normal Neck full ROM Chest inspection of chest normal Chest Narrative: Right-sided tunneled HD catheter in place, site appears clean and dry. Bruisingnoted in upper chest to right side of neck is improving. Resp normal respiratory effort and no use of accessory muscles Resp Narrative: Breathing comfortably on 2 L nasal cannula at rest. Decreased breath sounds in bilateral lung bases with mild crackles noted, no wheezing noted. Stable. Cardio regular rate, regular rhythm, no murmurs and peripheral pulses 2+ throughout GI normal to inspection, nondistended, normoactive bowel sounds, soft to palpation,non-tender and non-distended Back/Spine normal ROM Extremity Extremity Narrative: +1-2 lower extremity pitting edema noted, improving. Toe wounds with black eschar noted consistent with dry gangrene now with dressing in place. Skin no rashes or lesions noted Neuro moves all extremities and no focal motor deficits Assessment & Plan Assessment/Plan (1) Acute on chronic renal failure: QUALIFIERS: Acute renal failure type: unspecified Chronic kidney disease stage: stage 3 (moderate) Chronic kidney disease stage 3 subtype: [id number] (GFR 45-59) Qualified Code(s): N17.9 - Acute kidney failure, unspecified; N18.31 - Chronic kidney disease, stage 3a (2) Hyperkalemia: (3) Right hallux osteomyelitis: PLAN: Plan Patient is a 74-year-old female who presented to [facility] ED on 03/13/2025 with fatigue and abnormal labs. 1. Severe JOSUE on CKD stage IIIb with hyperkalemia and metabolic acidosis ? Nephrology following. Creatinine 5.10, BUN 88, potassium 6.7 on admit. Baseline creatinine 1.6-1.7. Potassium worsened to 7.4 on morning of 03/14; no EKG changes noted and treated with calcium/insulin/dextrose/Kayexalate/sodium bicarbonate push with repeat potassium 6.3. Unclear etiology for JOSUE at this time. Renal ultrasound benign. Appears volume overloaded on exam but urine sodium low. Given 1 dose of IV Lasix with very minimal urine output. Repeat BMPs on 03/15 and 03/16 without improvement. Tunneled HD catheter placed and HD initiated on 03/16. Will plan for 3 HD sessions through 03/18 likely followed by [facility] 3 days per week schedule moving forward. Per nephrology, will consider kidney biopsy in the future for further evaluation but toe osteomyelitis needs to be addressed first. Continue to monitor daily labs. 2. Acute on chronic HFrEF with hypoxia, hypertension, hyperlipidemia ? Cardiology following. Initially diagnosed with HFrEF with EF 40 to 45% in October. Was started on Coreg and lisinopril then but unfortunately repeat echo on 12/12 showed EF of 30% with moderate to severe global LV hypokinesis. Saw cardiology in the office on 03/12 and noted to have 17 pound weight gain. Labs drawn on 03/12 with findings as above as well as BNP greater than 70,000. Initiated on dialysis as noted above. Appreciate cardiology and nephrology recommendations going forward. Okay to continue home aspirin, statin and Coreg. 3. Right great toe osteomyelitis ? Podiatry and wound care following. Noted to have dry gangrene on foot on 03/15. Wound care was able to probe down to bone. Per podiatry, patient with no systemic signs of infection but does have clinical evidence of osteomyelitis to the right great toe. X-ray results confirm this and arterial study results withadequate blood flow to the digit. Planning for right great toe amputation on Monday 03/19, n.p.o. at midnight. Will treat with broad-spectrum antibiotics until then. Podiatry suspects that after amputation the source of infection will be cleared and there will be no further need for antibiotics. 4. Acute on chronic debility ? PT/OT/case management following. Patient with fairly poor therapy scores and now with right great toe osteomyelitis with need for amputation as noted above. Presumed that patient will need SNF placement on discharge. 5. Concern for UTI ? UA with 500 leukocyte esterase, negative nitrates, 4+ bacteria, 50-100 WBCs. Urine culture with no growth. Was initially on IV ceftriaxone, now on broad-spectrum antibiotics as above. Will complete 5-day course of antibiotics while inpatient. 6. Elevated troponin ? Cardiology following as above. Troponin trend 159 > 159 > 160 on admit. No new ischemic EKG changes noted. No chest pain noted. Suspected demand ischemiasecondary to HFrEF and JOSUE as noted above, no further cardiac workup needed. Chronic medical conditions: ? Class III obesity: BMI 50 on admit. Complicates hospital course, care and prognosis. ? Type 2 diabetes mellitus: Hold home metformin and dapagliflozin. Treating with sliding scale insulin with meals for now, adjust as needed. ? Hypothyroidism: Continue home Synthroid. DVT prophylaxis: Heparin subcu CODE STATUS: Full code, verified Expected disposition: Likely SNF, TBD Total clinical time spent by myself addressing the patient's medical issues, reviewing all the data, and collaborating with patient's care team: 35 minutes. Charges/Coding Visit Charges Inpatient E&M: 53977 Subs Hosp L2 03/18/25 1003 <Electronically signed by Seth Garnica DO> Cosigner Signature (if applicable): CC: ~ Signed [facility] Work Phone: [phone]) 773-392005-04-2025 Progress note [facility] Medical Records Department [address] [place] [address] Progress Note - Hospitalist 03/18/25 0935 MR#: [id number] Acct: [id number] Name: MISAEL MEDINA Rep #:[id number] : 1950 74 From: Seth mai DO PCP: Dr. Donal Castle MD Status:ADM IN Location: [place] [address] Reason for Visit Reason for Visit: Diagnoses Type 2 diabetes mellitus with diabetic polyneuropathy (03/13/25) Hyperkalemia (03/13/25) Essential (primary) hypertension (03/13/25) Pulmonary hypertension, unspecified (03/13/25) Nonrheumatic aortic (valve) stenosis (03/13/25) Acute on chronic systolic (congestive) heart failure (03/13/25) Non-pressure chronic ulcer of other part of right foot with necrosis of bone (03/13/25) Other acute osteomyelitis, right ankle and foot (03/13/25) Osteomyelitis, unspecified (03/13/25) Acute kidney failure, unspecified (03/13/25) Chronic kidney disease, stage 3a (03/13/25) Chronic kidney disease, stage 3b (03/13/25) Chronic kidney disease, unspecified (03/13/25) 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 Patient appeared similar today to previousdays. Was sitting back comfortably in bedside chair and appeared somewhat lethargic but was otherwise answering questions with short appropriate responses. Denied any new concerns this morning. Objective Data Objective Data Vital Signs: Vital Signs Temp Pulse Resp BP Pulse Ox O2 Del Method O2 Flow Rate 97 F L 60 18 130/80 H 96 Nasal Cannula 2 03/18/25 07:59 03/18/25 07:59 03/18/25 07:59 03/18/25 07:59 03/18/25 07:59 03/18/25 08:06 03/18/25 08:06 Oxygen Flow Rate (L/min) 2 Oxygen Delivery Method Nasal Cannula Weight: 119.3 kg Body Mass Index (BMI) 51.6 Intake & Output: Intake and Output for Last 24 Hours 03/16/25 03/17/25 03/18/25 23:59 23:59 23:59 Intake Total 1115 / 1115 650 / 650 250 / 250 Output Total 1080 / 1130 1300 / 1300 50 / 50 Balance 35 / -15 -650 / -650 200 / 200 Lab / Micro Data 03/18/25 05:26 03/18/25 05:26 Labs: Laboratory Results - last 24 hr 03/17/25 08:07: POC Glucose 104 03/17/25 11:06: POC Glucose 155 H 03/17/25 16:18: POC Glucose 167 H 03/17/25 20:02: POC Glucose 185 H 03/18/25 05:26: WBC 8.0, RBC 4.08 L, Hgb 10.7 L, Hct 35.8 L, MCV 87.7, MCH 26.2 L, MCHC 29.9 L, RDWStd Deviation 54.8 H, RDW Coeff of Leif 17.2 H, Plt Count 157, MPV 8.9, Sodium 135, Potassium 4.7, Chloride 106, Carbon Dioxide 17.9 L, Anion Gap 11, BUN 57 H, Creatinine 4.09 H, Estim Creat Clear Calc 14.29 L, Est GFR (MDRD) Non-Af 11 L, BUN/Creatinine Ratio 13.8, Glucose 139 H, Calcium 7.8 03/18/25 06:35: POC Glucose 130 H Micro: Microbiology 03/14/25 18:00 Urine Catheter - Catheter Urine Culture - Final Culture exhibits no growth. 03/16/25 09:25 Wound - Toe Gram Stain - Final Physical Exam Const alert, oriented x3 and no apparent distress Constitutional Narrative: Elderly female, class III obesity, mildly fatigued and lethargic appearing, A and O x 3 but only answering questions with short responses, otherwise sitting back comfortably in bedside chair and in no acute distress. General Appearance: cooperative and comfortable HEENT normocephalic, head/scalp atraumatic, hearing grossly normal bilaterally, nasal mucous membranes and turbinates normal and moist oral mucous membranes Eyes PERRL, EOMs intact bilaterally and conjunctivae normal Neck full ROM Chest inspection of chest normal Chest Narrative: Right-sided tunneled HD catheter in place, site appears clean and dry. Bruisingnoted in upper chestto right side of neck is improving. Resp normal respiratory effort and no use of accessory muscles Resp Narrative: Breathing comfortably on 2 L nasal cannula at rest. Decreased breath sounds in bilateral lung baseswith mild crackles noted, no wheezing noted. Stable. Cardio regular rate, regular rhythm, no murmurs and peripheral pulses 2+ throughout GI normal to inspection, nondistended, normoactive bowel sounds, soft to palpation,non-tender and non-distended Back/Spine normal ROM Extremity Extremity Narrative: +1-2 lower extremity pitting edema noted, improving. Toe wounds with black eschar noted consistent with dry gangrene now with dressing in place. Skin no rashes or lesions noted Neuro moves all extremities and no focal motor deficits Assessment & Plan Assessment/Plan (1) Acute on chronic renal failure: QUALIFIERS: Acute renal failure type: unspecified Chronic kidney disease stage: stage 3 (moderate) Chronic kidney disease stage 3 subtype: [id number] (GFR 45-59) Qualified Code(s): N17.9 - Acute kidney failure, unspecified; N18.31 - Chronic kidney disease, stage 3a (2) Hyperkalemia: (3) Right hallux osteomyelitis: PLAN: Plan Patient is a 74-year-old female who presented to [facility] ED on 03/13/2025 with fatigue and abnormal labs. 1. Severe JOSUE on CKD stage IIIb with hyperkalemia and metabolic acidosis ? Nephrology following. Creatinine 5.10, BUN 88, potassium 6.7 on admit. Baseline creatinine 1.6-1.7. Potassium worsened to 7.4 on morning of 03/14; no EKG changes noted and treated with calcium/insulin/dextrose/Kayexalate/sodium bicarbonate push with repeat potassium 6.3. Unclear etiology for JOSUE at this time. Renal ultrasound benign. Appears volume overloaded on exam but urine sodium low. Given 1 dose of IV Lasix with very minimal urine output. Repeat BMPs on 03/15 and 03/16 without improvement. Tunneled HD catheter placed and HD initiated on 03/16. Will plan for 3 HD sessions through 03/18 likely followed by [facility] 3 days per week schedule moving forward. Per nephrology, will consider kidney biopsyin the future for further evaluation but toe osteomyelitis needs to be addressed first. Continue tomonitor daily labs. 2. Acute on chronic HFrEF with hypoxia, hypertension, hyperlipidemia ? Cardiology following. Initially diagnosed with HFrEF with EF 40 to 45% in October. Was started on Coreg and lisinopril then but unfortunately repeat echo on 12/12 showed EF of 30% with moderate to severe global LV hypokinesis. Saw cardiology in the office on 03/12 and noted to have 17 pound weightgain. Labs drawn on 03/12 with findings as above as well as BNP greater than 70,000. Initiated on dialysis as noted above. Appreciate cardiology and nephrology recommendations going forward. Okay to continue home aspirin, statin and Coreg. 3. Right great toe osteomyelitis ? Podiatry and wound care following. Noted to have dry gangrene on foot on 03/15. Wound care was ableto probe down to bone. Per podiatry, patient with no systemic signs of infection but does have clinical evidence of osteomyelitis to the right great toe. X-ray results confirm this and arterial studyresults withadequate blood flow to the digit. Planning for right great toe amputation on Monday 03/19, n.p.o. at midnight. Will treat with broad-spectrum antibiotics until then. Podiatry suspects that after amputation the source of infection will be cleared and there will be no further need for antibiotics. 4. Acute on chronic debility ? PT/OT/case management following. Patient with fairly poor therapy scores and now with right greattoe osteomyelitis with need for amputation as noted above. Presumed that patient will need SNF placement on discharge. 5. Concern for UTI ? UA with 500 leukocyte esterase, negative nitrates, 4+ bacteria, 50-100 WBCs. Urine culture with no growth. Was initially on IV ceftriaxone, now on broad- spectrum antibiotics as above. Will complete5-day course of antibiotics while inpatient. 6. Elevated troponin ? Cardiology following as above. Troponin trend 159 > 159 > 160 on admit. No new ischemic EKGchanges noted. No chest pain noted. Suspected demand ischemiasecondary to HFrEF and JOSUE as noted above, no further cardiac workup needed. Chronic medical conditions: ? Class III obesity: BMI 50 on admit. Complicates hospital course, care and prognosis. ? Type 2 diabetes mellitus: Hold home metformin and dapagliflozin. Treating with sliding scale insulin with meals for now, adjust as needed. ? Hypothyroidism: Continue home Synthroid. DVT prophylaxis: Heparin subcu CODE STATUS: Full code, verified Expected disposition: Likely SNF, TBD Total clinical time spent by myself addressing the patient's medical issues, reviewing all the data, and collaborating with patient's care team: 35 minutes. Charges/Coding Visit Charges Inpatient E&M: 76679 Subs Hosp L2 03/18/25 1003 Cosigner Signature (if applicable): CC: ~ Signed [facility]05-03-2025 Consult note Author Marj Naylor [facility] Note Date/Time March 17, 2025 9:28pm [facility] Medical Records Department [address] [place] [address] Pharmacokinetic/Renal -Consult 03/17/252124 MR#: [id number] Acct: [id number] Name: MISAEL MEDINA Rep #:[id number] : 1950 74 From: Marj Naylor PCP: Dr. Donal Castle MD Status:ADM IN Y Location: [place] [address] Consult Antibiotic Management Pharmacy has been consulted to manage selected antibiotic: Vancomycin Type of Intervention Type of Consult: Follow-up Labs Labs: Sodium 136 mmol/L (133-145) 03/17/25 04:27 Potassium 4.9 mmol/L (3.3-5.1) 03/17/25 04:27 Chloride 106 mmol/L (98-108) 03/17/25 04:27 Carbon Dioxide 17.4 mmol/L (21.0-32.0) L 03/17/25 04:27 Anion Gap 13 (5-15) 03/17/25 04:27 BUN 71 mg/dL (4-19) H 03/17/25 04:27 Creatinine 4.76 mg/dL (0.70-1.20) H 03/17/25 04:27 Est GFR (MDRD) Non-Af 9 (>60) L 03/17/25 04:27 BUN/Creatinine Ratio 15.0 RATIO (10-20) 03/17/25 04:27 Glucose 80 mg/dL (70-99) 03/17/25 04:27 Microbiology Microbiology: Microbiology 03/14/25 18:00 Urine Catheter - Catheter Urine Culture - Final Culture exhibits no growth. 03/16/25 09:25 Wound - Toe Gram Stain - Final Goal Trough Goal Trough: 15-20 mcg/mL Pharmacy Plan for Drug Dosing Pharmacy Plan for Drug Dosing: DAILY ASSESSMENT Current Vancomycin Dose: Dosing per HD Number of Doses Received: Loading dose of 2G IV X1 03/16/25 Current Renal Function: ON HD- Schedule not determined at this time. Following daily for HD treatments Renal Function Trend: n/a Lab/Micro: WCx growing GPC Any Change in Vanc Plan: Patient had HD today per nephrology. Will give 1g IV [id number] treatment. Nephrology note did not state a HD schedule, awaiting resultsof tests, etc. before determining schedule. Will follow daily to determine HD schedule. Patient will be due for a trough before the next HD session (TBD) Pending Level: None scheduled at this time, will continue to follow daily Pharmacy Service will continue to monitor and adjust dosing as required. 03/17/252127 <Electronically signed by Marj Naylor > Date _ Marj Naylor Cosigner Signature (if applicable): Date CC: ~ Signed [facility] Work Phone: 1(981) 383-470105-03-2025 Consult note [facility] Medical Records Department [address] [place] [address] Pharmacokinetic/Renal -Consult 03/17/252124 MR#: [id number] Acct: [id number] Name: MISAEL MEDINA Rep #:[id number] : 1950 74 From: Marj Naylor PCP: Dr. Donal Castle MD Status:ADM IN Location: [place] [address] Consult Antibiotic Management Pharmacy has been consulted to manage selected antibiotic: Vancomycin Type of Intervention Type of Consult: Follow-up Labs Labs: Sodium 136 mmol/L (133-145) 03/17/25 04:27 Potassium 4.9 mmol/L (3.3-5.1) 03/17/25 04:27 Chloride 106 mmol/L (98-108) 03/17/25 04:27 Carbon Dioxide 17.4 mmol/L (21.0-32.0) L 03/17/25 04:27 Anion Gap 13 (5-15) 03/17/25 04:27 BUN 71 mg/dL (4-19) H 03/17/25 04:27 Creatinine 4.76 mg/dL (0.70-1.20) H 03/17/25 04:27 Est GFR (MDRD) Non-Af 9 (>60) L 03/17/25 04:27 BUN/Creatinine Ratio 15.0 RATIO (10-20) 03/17/25 04:27 Glucose 80 mg/dL (70-99) 03/17/25 04:27 Microbiology Microbiology: Microbiology 03/14/25 18:00 Urine Catheter - Catheter Urine Culture - Final Culture exhibits no growth. 05/02/25 09:25 Wound - Toe Gram Stain - Final Goal Trough Goal Trough: 15-20 mcg/mL Pharmacy Plan for Drug Dosing Pharmacy Plan for Drug Dosing: DAILY ASSESSMENT Current Vancomycin Dose: Dosing per HD Number of Doses Received: Loading dose of 2G IV X1 03/16/25 Current Renal Function: ON HD- Schedule not determined at this time. Following daily for HD treatments Renal Function Trend: n/a Lab/Micro: WCx growing GPC Any Change in Vanc Plan: Patient had HD today per nephrology. Will give 1g IV [id number] treatment. Nephrology note did not state a HD schedule, awaiting resultsof tests, etc. before determining schedule. Will follow daily to determine HD schedule. Patient will be due for a trough before the next HD session (TBD) Pending Level: None scheduled at this time, will continue to follow daily Pharmacy Service will continue to monitor and adjust dosing as required. 03/17/252127 > Date _ Marj Aviles Signature (if applicable): Date CC: ~ Signed [facility]05-03-2025 Progress note Author Shila Story [facility] Center Note Date/Time March 17, 2025 6:01pm [facility] Medical Records Department [address] [place] [address] Progress Note - Nephrology 03/17/25 1757 MR#: [id number] Acct: [id number] Name: MISAEL MEDINA Rep #:[id number] : 1950 74 From: Shila garcia MD PCP: Dr. Donal Castle MD Status:ADM IN Location: [place] [address] Subjective Subjective Follow-up on acute kidney injury, requiring dialysis. Has been dialyzed today, 1000 cc of fluid has been removed. Tolerated well Objective Data Objective Data Vital Signs: Vital Signs Temp Pulse Resp BP Pulse Ox O2 Del Method O2 Flow Rate 97.3 F L 74 20 H 136/68 H 97 Nasal Cannula 2 03/17/25 16:56 03/17/25 16:56 03/17/25 16:56 03/17/25 16:56 03/17/25 16:56 03/17/25 16:56 03/17/25 16:56 Oxygen Flow Rate (L/min) 2 Oxygen Delivery Method Nasal Cannula Weight: 119.5 kg Body Mass Index (BMI) 51.7 Intake & Output: Intake and Output for Last 24 Hours 03/15/25 03/16/25 03/17/25 23:59 23:59 23:59 Intake Total 490 / 490 1115 / 1115 50 / 50 Output Total 150 / 150 1080 / 1130 1200 / 1200 Balance 340 / 340 35 / -15 -1150 / -1150 Lab / Micro Data Attestation: I reviewed the patient's lab results. 03/16/25 04:04 03/17/25 04:27 Labs: Laboratory Results - last 24 hr 03/16/25 14:42: POC Glucose 111 H 03/16/25 18:06: POC Glucose 107 H 03/16/25 21:42: POC Glucose 91 03/17/25 04:27: Sodium 136, Potassium 4.9, Chloride 106, Carbon Dioxide 17.4 L, Anion Gap 13, BUN 71 H, Creatinine 4.76 H, Estim Creat Clear Calc 12.37 L, Est GFR (MDRD) Non-Af 9 L, BUN/Creatinine Ratio 15.0, Glucose 80, Calcium 8.0 03/17/25 06:34: POC Glucose 77 03/17/25 08:07: POC Glucose 104 03/17/25 16:18: POC Glucose 167 H Micro: Microbiology 03/14/25 18:00 Urine Catheter - Catheter Urine Culture - Final Culture exhibits no growth. 03/16/25 09:25 Wound - Toe Gram Stain - Final Physical Exam Narrative Has anasarca Const alert, oriented x3 and no apparent distress Nutritional Appearance: morbidly obese HEENT normocephalic Head and Scalp: atraumatic Neck no lymphadenopathy Resp no use of accessory muscles Auscultation: diminished lung sounds Cardio no murmurs GI non-tender and non-distended Auscultation: normoactive bowel sounds Assessment & Plan Assessment/Plan (1) Acute on chronic renal failure: QUALIFIERS: Acute renal failure type: unspecified Chronic kidney disease stage: stage 3 (moderate) Chronic kidney disease stage 3 subtype: [id number] (GFR 45-59) Qualified Code(s): N17.9 - Acute kidney failure, unspecified; N18.31 - Chronic kidney disease, stage 3a PLAN: Acute kidney injury with low fractional excretion of sodium. Serologies are pending. Started on dialysis due to lack of urine output and the rising creatinine. Today had a second treatment and tolerated well with 1000 cc fluid removal. Will await serologies, consider doing kidney biopsy early next week. As she has a little bit of urine output I will give her Lasix trial 03/17/251800 <Electronically signed by Shila Story MD> Cosigner Signature (if applicable): CC: ~ Signed [facility] Work Phone: [phone]) 248-354805-03-2025 Progress note [facility] Medical Records Department [address] [place] [address] Progress Note - Nephrology 03/17/25 175 MR#: [id number] Acct: [id number] Name: MISAEL MEDINA Rep #:[id number] : 1950 74 From: Shila garcia MD PCP: Dr. Donal Castle MD Status:ADM IN Location: [place] [address] Subjective Subjective Follow-up on acute kidney injury, requiring dialysis. Has been dialyzed today, 1000 cc of fluid hasbeen removed. Tolerated well Objective Data Objective Data Vital Signs: Vital Signs Temp Pulse Resp BP Pulse Ox O2 Del Method O2 Flow Rate 97.3 F L 74 20 H 136/68 H 97 Nasal Cannula 2 03/17/25 16:56 03/17/25 16:56 03/17/25 16:56 03/17/25 16:56 03/17/25 16:56 03/17/25 16:56 03/17/25 16:56 Oxygen Flow Rate (L/min) 2 Oxygen Delivery Method Nasal Cannula Weight: 119.5 kg Body Mass Index (BMI) 51.7 Intake & Output: Intake and Output for Last 24 Hours 03/15/25 03/16/25 03/17/25 23:59 23:59 23:59 Intake Total 490 / 490 1115 / 1115 50 / 50 Output Total 150 / 150 1080 / 1130 1200 / 1200 Balance 340 / 340 35 / -15 -1150 / -1150 Lab / Micro Data Attestation: I reviewed the patient's lab results. 03/16/25 04:04 03/17/25 04:27 Labs: Laboratory Results - last 24 hr 03/16/25 14:42: POC Glucose 111 H 03/16/25 18:06: POC Glucose 107 H 03/16/25 21:42: POC Glucose 91 03/17/25 04:27: Sodium 136, Potassium 4.9, Chloride 106, Carbon Dioxide 17.4 L, Anion Gap 13, BUN 71 H, Creatinine 4.76 H, Estim Creat Clear Calc 12.37 L, Est GFR (MDRD) Non-Af 9 L, BUN/Creatinine Ratio 15.0, Glucose 80, Calcium 8.0 03/17/25 06:34: POC Glucose 77 03/17/25 08:07: POC Glucose 104 03/17/25 16:18: POC Glucose 167 H Micro: Microbiology 03/14/25 18:00 Urine Catheter - Catheter Urine Culture - Final Culture exhibits no growth. 03/16/25 09:25 Wound - Toe Gram Stain - Final Physical Exam Narrative Has anasarca Const alert, oriented x3 and no apparent distress Nutritional Appearance: morbidly obese HEENT normocephalic Head and Scalp: atraumatic Neck no lymphadenopathy Resp no use of accessory muscles Auscultation: diminished lung sounds Cardio no murmurs GI non-tender and non-distended Auscultation: normoactive bowel sounds Assessment & Plan Assessment/Plan (1) Acute on chronic renal failure: QUALIFIERS: Acute renal failure type: unspecified Chronic kidney disease stage: stage 3 (moderate) Chronic kidney disease stage 3 subtype: [id number] (GFR 45-59) Qualified Code(s): N17.9 - Acute kidney failure, unspecified; N18.31 - Chronic kidney disease, stage 3a PLAN: Acute kidney injury with low fractional excretion of sodium. Serologies are pending. Started on dialysis due to lack of urine output and the rising creatinine. Today had a second treatment and tolerated well with 1000 cc fluid removal. Will await serologies, consider doing kidney biopsy earlynext week. As she has a little bit of urine output I will give her Lasix trial 03/17/25 1801 Cosigner Signature (if applicable): CC: ~ Signed [facility]05-03-2025 Consult note Author Shaina Joseph [facility] Note Date/Time March 17, 2025 3:08pm [facility] Medical Records Department [address] [place] [address] Pharmacokinetic/Renal -Consult 03/16/25 1518 MR#: [id number] Acct: [id number] Name: MISAEL MEDINA Rep #:[id number] : 1950 74 From: Shaina Joseph PCP: Dr. Donal Castel MD Status:ADM IN Location: [place] [address] Consult Antibiotic Management Pharmacy has been consulted to manage selected antibiotic: Vancomycin Type of Intervention Type of Consult: New start Suspected Infection Suspected Infection: Osteomyelitis Labs Labs: Sodium 137 mmol/L (133-145) 03/16/25 04:04 Potassium 5.6 mmol/L (3.3-5.1) H 03/16/25 04:04 Chloride 108 mmol/L (98-108) 03/16/25 04:04 Carbon Dioxide 16.4 mmol/L (21.0-32.0) L 03/16/25 04:04 Anion Gap 13 (5-15) 03/16/25 04:04 BUN 96 mg/dL (4-19) H 03/16/25 04:04 Creatinine 5.96 mg/dL (0.70-1.20) H 03/16/25 04:04 Est GFR (MDRD) Non-Af 7 (>60) L 03/16/25 04:04 BUN/Creatinine Ratio 16.2 RATIO (10-20) 03/16/25 04:04 Glucose 138 mg/dL (70-99) H 03/16/25 04:04 Microbiology Microbiology: Microbiology 03/16/25 09:25 Wound - Toe Gram Stain - Final 03/14/25 18:00 Urine Catheter - Catheter Urine Culture - Preliminary Culture exhibits no growth. Pharmacy Plan for Drug Dosing Pharmacy Plan for Drug Dosing: NEW START IV VANCOMYCIN Consulting Physician: Nahun Indication: wound/possible osteomyelitis Goal Trough: 15-20 mg/dL SrCr: HD CrCl: HD Comments: HD running now, loading dose of 2000mg to be given after HD today Vancomycin Dose: loading dose to be given today. Per nurse, tentative plan to run patient tomorrow as well. If patient does get HD, will need a x1 1gm dose post- HD then a pre-HD level before following session. Pending Level: none, check HD schedule Pharmacy Service will continue to monitor and adjust dosing as required. 03/16/25 1519 <Electronically signed by Shaina Joseph> Date _ Shaina Joseph 03/17/25 1508 <Electronically signed by Seth ellis DO> Cosigner Signature (if applicable): Date Seth Garnica DO CC: ~ Signed [facility] Work Phone: [phone]) [phone] Consult note [facility] Medical Records Department [address] [place] [address] Pharmacokinetic/Renal -Consult 03/16/25 1518 MR#: [id number] Acct: [id number] Name: MISAEL MEDINA Rep #:[id number] : 1950 74 From: Shaina Joseph PCP: Dr. Donal Castle MD Status:ADM IN Location: [place] [address] Consult Antibiotic Management Pharmacy has been consulted to manage selected antibiotic: Vancomycin Type of Intervention Type of Consult: New start Suspected Infection Suspected Infection: Osteomyelitis Labs Labs: Sodium 137 mmol/L (133-145) 03/16/25 04:04 Potassium 5.6 mmol/L (3.3-5.1) H 03/16/25 04:04 Chloride 108 mmol/L (98-108) 03/16/25 04:04 Carbon Dioxide 16.4 mmol/L (21.0-32.0) L 03/16/25 04:04 Anion Gap 13 (5-15) 03/16/25 04:04 BUN 96 mg/dL (4-19) H 03/16/25 04:04 Creatinine 5.96 mg/dL (0.70-1.20) H 03/16/25 04:04 Est GFR (MDRD) Non-Af 7 (>60) L 03/16/25 04:04 BUN/Creatinine Ratio 16.2 RATIO (10-20) 03/16/25 04:04 Glucose 138 mg/dL (70-99) H 03/16/25 04:04 Microbiology Microbiology: Microbiology 03/16/25 09:25 Wound - Toe Gram Stain - Final 03/14/25 18:00 Urine Catheter - Catheter Urine Culture - Preliminary Culture exhibits no growth. Pharmacy Plan for Drug Dosing Pharmacy Plan for Drug Dosing: NEW START IV VANCOMYCIN Consulting Physician: Nahun Indication: wound/possible osteomyelitis Goal Trough: 15-20 mg/dL SrCr: HD CrCl: HD Comments: HD running now, loading dose of 2000mg to be given after HD today Vancomycin Dose: loading dose to be given today. Per nurse, tentative plan to run patient tomorrow as well. If patient does get HD, will need a x1 1gm dose post-HD then a pre-HD level before following session. Pending Level: none, check HD schedule Pharmacy Service will continue to monitor and adjust dosing as required. 03/16/25 1519 Date _ Shaina Joseph 03/17/25 1508 [email or web address] DO> Cosigner Signature (if applicable): Date Seth Garnica DO CC: ~ Signed [facility]05-03-2025 Progress note Author Seth Garnica [facility] Note Date/Time March 17, 2025 12:59p m [facility] Medical Records Department [address] [place] [address] Progress Note - Hospitalist 03/17/25 1044 MR#: [id number] Acct: [id number] Name: MISAEL MEDINA Rep #:[id number] : 1950 74 From: Seth Aliyah mai DO PCP: Dr. Donal Castle MD Status:ADM IN Location: [place] [address] Reason for Visit Reason for Visit: Diagnoses Type 2 diabetes mellitus with diabetic polyneuropathy (03/13/25) Hyperkalemia (03/13/25) Essential (primary) hypertension (03/13/25) Pulmonary hypertension, unspecified (03/13/25) Nonrheumatic aortic (valve) stenosis (03/13/25) Acute on chronic systolic (congestive) heart failure (03/13/25) Non-pressure chronic ulcer of other part of right foot with necrosis of bone (03/13/25) Other acute osteomyelitis, right ankle and foot (03/13/25) Acute kidney failure, unspecified (03/13/25) Chronic kidney disease, stage 3b (03/13/25) Chronic kidney disease, unspecified (03/13/25) 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 Patient appeared similar today to previousdays. She was having hemodialysis done when I saw her and was tolerating this without issue. Denied any new pain or discomfort. No other new concerns today. Objective Data Objective Data Vital Signs: Vital Signs Temp Pulse Resp BP Pulse Ox O2 Del Method O2 Flow Rate 97.7 F L 68 18 126/71 H 98 Nasal Cannula 3 03/17/25 10:40 03/17/25 10:40 03/17/25 10:40 03/17/25 10:40 03/17/25 10:40 03/17/25 10:40 03/17/25 10:40 Oxygen Flow Rate (L/min) 3 Oxygen Delivery Method Nasal Cannula Weight: 119.5 kg Body Mass Index (BMI) 51.7 Intake & Output: Intake and Output for Last 24 Hours 03/15/25 03/16/25 03/17/25 23:59 23:59 23:59 Intake Total 490 / 490 1115 / 1115 Output Total 150 / 150 1080 / 1130 1200 / 1200 Balance 340 / 340 35 / -15 -1200 / -1200 Lab / Micro Data 03/16/25 04:04 03/17/25 04:27 Labs: Laboratory Results - last 24 hr 03/15/25 10:05: Double Strand DNA Ab <1 03/16/25 09:25: S.aureus Protein A PCR NEGATIVE, MRSA (PCR) Negative 03/16/25 14:42: POC Glucose 111 H 03/16/25 18:06: POC Glucose 107 H 03/16/25 21:42: POC Glucose 91 03/17/25 04:27: Sodium 136, Potassium 4.9, Chloride 106, Carbon Dioxide 17.4 L, Anion Gap 13, BUN 71 H, Creatinine 4.76 H, Estim Creat Clear Calc 12.37 L, Est GFR (MDRD) Non-Af 9 L, BUN/Creatinine Ratio 15.0, Glucose 80, Calcium 8.0 03/17/25 06:34: POC Glucose 77 Micro: Microbiology 03/16/25 09:25 Wound - Toe Gram Stain - Final 03/14/25 18:00 Urine Catheter - Catheter Urine Culture - Preliminary Culture exhibits no growth. Radiography Diagnostic Testing: Radiology Impression Chest X-Ray 03/16/25 12:45 IMPRESSION: 1. Placement of RIGHT IJ CVC with tip projecting over the mid to lower SVC. No visible pneumothorax. 2. Otherwise similar appearance of the chest. Reading Location: [facility] Foot X-Ray 03/16/25 12:45 IMPRESSION: Cortical bone irregularity along the medial aspect of the 1st distal phalanx (1st great toe). Narrowing of the 1st interphalangeal joint concerning for intra-articular involvement. Reading Location: [facility] Foot X-Ray 03/16/25 12:45 IMPRESSION: DEGENERATIVE OSTEOARTHROSIS. NO ACUTE FINDINGS. Reading Location: [facility] Physical Exam Const alert and no apparent distress Constitutional Narrative: Elderly female, class III obesity, mildly fatigued appearing, alert and orientedto person and place but not time and some confusion with answering questions, otherwise sitting back comfortably in bed and in no acute distress. Stable. General Appearance: cooperative and comfortable HEENT normocephalic, head/scalp atraumatic, hearing grossly normal bilaterally, nasal mucous membranes and turbinates normal and moist oral mucous membranes Eyes PERRL, EOMs intact bilaterally and conjunctivae normal Neck full ROM Chest inspection of chest normal Chest Narrative: Right-sided tunneled HD catheter in place. Dried blood noted below bandage and some bruising noted in upper chest to right side of neck. Resp normal respiratory effort and no use of accessory muscles Resp Narrative: Breathing comfortably on 2 L nasal cannula at rest. Decreased breath sounds in bilateral lung bases with mild crackles noted, no wheezing noted. Stable. Cardio regular rate, regular rhythm, no murmurs and peripheral pulses 2+ throughout GI normal to inspection, nondistended, normoactive bowel sounds, soft to palpation,non-tender and non-distended Back/Spine normal ROM Extremity Extremity Narrative: +2-3 lower extremity pitting edema noted. Stable. Toe wounds with black escharnoted consistent with dry gangrene. Skin no rashes or lesions noted Neuro moves all extremities and no focal motor deficits Assessment & Plan Assessment/Plan (1) Acute on chronic renal failure: (2) Hyperkalemia: (3) Right hallux osteomyelitis: PLAN: Plan Patient is a 74-year-old female who presented to [facility] ED on 03/13/2025 with fatigue and abnormal labs. 1. Severe JOSUE on CKD stage IIIb with hyperkalemia and metabolic acidosis ? Nephrology following. Creatinine 5.10, BUN 88, potassium 6.7 on admit. Baseline creatinine 1.6-1.7. Potassium worsened to 7.4 on morning of 03/14; no EKG changes noted and treated with calcium/insulin/dextrose/Kayexalate/sodium bicarbonate push with repeat potassium 6.3. Unclear etiology for JOSUE at this time. Renal ultrasound benign. Appears volume overloaded on exam but urine sodium low. Given 1 dose of IV Lasix with very minimal urine output. Repeat BMPs on 03/15 and 03/16 without improvement. Tunneled HD catheter placed and HD initiated on 03/16. Will plan for 3 HD sessions through 03/18 likely followed by [facility] 3 days per week schedule moving forward. Per nephrology, will consider kidney biopsy in the future for further evaluation but toe osteomyelitis needs to be addressed first. Continue to monitor daily labs. 2. Acute on chronic HFrEF with hypoxia, hypertension, hyperlipidemia ? Cardiology following. Initially diagnosed with HFrEF with EF 40 to 45% in October. Was started on Coreg and lisinopril then but unfortunately repeat echo on 12/12 showed EF of 30% with moderate to severe global LV hypokinesis. Saw cardiology in the office on 03/12 and noted to have 17 pound weight gain. Labs drawn on 03/12 with findings as above as well as BNP greater than 70,000. Initiated on dialysis as noted above. Appreciate cardiology and nephrology recommendations going forward. Okay to continue home aspirin, statin and Coreg. 3. Right great toe osteomyelitis ? Podiatry and wound care following. Noted to have dry gangrene on foot on 03/15. Wound care was able to probe down to bone. Per podiatry, patient with no systemic signs of infection but does have clinical evidence of osteomyelitis to the right great toe. X-ray results confirm this and arterial study results withadequate blood flow to the digit. Planning for right great toe amputation on Monday 03/19. Will treat with broad-spectrum antibiotics until then. Podiatry suspects that after amputation the source of infection will be cleared and therewill be no further need for antibiotics. 4. Acute on chronic debility ? PT/OT/case management following. Patient with fairly poor therapy scores and now with right great toe osteomyelitis with need for amputation as noted above. Presumed that patient will need SNF placement on discharge. 5. Concern for UTI ? UA with 500 leukocyte esterase, negative nitrates, 4+ bacteria, 50-100 WBCs. Urine culture with no growth. Was initially on IV ceftriaxone, now on broad-spectrum antibiotics as above. Will complete 5-day course of antibiotics while inpatient. 6. Elevated troponin ? Cardiology following as above. Troponin trend 159 > 159 > 160 on admit. No new ischemic EKG changes noted. No chest pain noted. Suspected demand ischemiasecondary to HFrEF and JOSUE as noted above, no further cardiac workup needed. Chronic medical conditions: ? Class III obesity: BMI 50 on admit. Complicates hospital course, care and prognosis. ? Type 2 diabetes mellitus: Hold home metformin and dapagliflozin. Treating with sliding scale insulin with meals for now, adjust as needed. ? Hypothyroidism: Continue home Synthroid. DVT prophylaxis: Heparin subcu CODE STATUS: Full code, verified Expected disposition: Likely SNF, TBD Total clinical time spent by myself addressing the patient's medical issues, reviewing all the data, and collaborating with patient's care team: 35 minutes. Charges/Coding Visit Charges Inpatient E&M: 39032 Subs Hosp L2 03/17/25 1259 <Electronically signed by Seth Garnica DO> Cosigner Signature (if applicable): CC: ~ Signed [facility] Work Phone: 1(735) [phone] Progress note [facility] Medical Records Department [address] [place] [address] Progress Note - Hospitalist 03/17/25 1044 MR#: [id number] Acct: [id number] Name: MISAEL MEDINA Rep #:[id number] : 1950 74 From: Seth mai DO PCP: Dr. Donal Castle MD Status:ADM IN Location: [place] [address] Reason for Visit Reason for Visit: Diagnoses Type 2 diabetes mellitus with diabetic polyneuropathy (03/13/25) Hyperkalemia (03/13/25) Essential (primary) hypertension (03/13/25) Pulmonary hypertension, unspecified (03/13/25) Nonrheumatic aortic (valve) stenosis (03/13/25) Acute on chronic systolic (congestive) heart failure (03/13/25) Non-pressure chronic ulcer of other part of right foot with necrosis of bone (03/13/25) Other acute osteomyelitis, right ankle and foot (03/13/25) Acute kidney failure, unspecified (03/13/25) Chronic kidney disease, stage 3b (03/13/25) Chronic kidney disease, unspecified (03/13/25) 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 Patient appeared similar today to previousdays. She was havinghemodialysis done when I saw her and was tolerating this without issue. Denied any new pain or discomfort. No other new concerns today. Objective Data Objective Data Vital Signs: Vital Signs Temp Pulse Resp BP Pulse Ox O2 Del Method O2 Flow Rate 97.7 F L 68 18 126/71 H 98 Nasal Cannula 3 03/17/25 10:40 03/17/25 10:40 03/17/25 10:40 03/17/25 10:40 03/17/25 10:40 03/17/25 10:40 03/17/25 10:40 Oxygen Flow Rate (L/min) 3 Oxygen Delivery Method Nasal Cannula Weight: 119.5 kg Body Mass Index (BMI) 51.7 Intake & Output: Intake and Output for Last 24 Hours 03/15/25 03/16/25 03/17/25 23:59 23:59 23:59 Intake Total 490 / 490 1115 / 1115 Output Total 150 / 150 1080 / 1130 1200 / 1200 Balance 340 / 340 35 / -15 -1200 / -1200 Lab / Micro Data 03/16/25 04:04 03/17/25 04:27 Labs: Laboratory Results - last 24 hr 03/15/25 10:05: Double Strand DNA Ab <1 03/16/25 09:25: S.aureus Protein A PCR NEGATIVE, MRSA (PCR) Negative 03/16/25 14:42: POC Glucose 111 H 03/16/25 18:06: POC Glucose 107 H 03/16/25 21:42: POC Glucose 91 03/17/25 04:27: Sodium 136, Potassium 4.9, Chloride 106, Carbon Dioxide 17.4 L, Anion Gap 13, BUN 71 H, Creatinine 4.76 H, Estim Creat Clear Calc 12.37 L, Est GFR (MDRD) Non-Af 9 L, BUN/Creatinine Ratio 15.0, Glucose 80, Calcium 8.0 03/17/25 06:34: POC Glucose 77 Micro: Microbiology 03/16/25 09:25 Wound - Toe Gram Stain - Final 03/14/25 18:00 Urine Catheter - Catheter Urine Culture - Preliminary Culture exhibits no growth. Radiography Diagnostic Testing: Radiology Impression Chest X-Ray 03/16/25 12:45 IMPRESSION: 1. Placement of RIGHT IJ CVC with tip projecting over the mid to lower SVC. No visible pneumothorax. 2. Otherwise similar appearance of the chest. Reading Location: [id number] Foot X-Ray 03/16/25 12:45 IMPRESSION: Cortical bone irregularity along the medial aspect of the 1st distal phalanx (1st great toe). Narrowing of the 1st interphalangeal joint concerning for intra-articular involvement. Reading Location: [id number] Foot X-Ray 03/16/25 12:45 IMPRESSION: DEGENERATIVE OSTEOARTHROSIS. NO ACUTE FINDINGS. Reading Location: [facility] Physical Exam Const alert and no apparent distress Constitutional Narrative: Elderly female, class III obesity, mildly fatigued appearing, alert and orientedto person and placebut not time and some confusion with answering questions, otherwise sitting back comfortably in bedand in no acute distress. Stable. General Appearance: cooperative and comfortable HEENT normocephalic, head/scalp atraumatic, hearing grossly normal bilaterally, nasal mucous membranes and turbinates normal and moist oral mucous membranes Eyes PERRL, EOMs intact bilaterally and conjunctivae normal Neck full ROM Chest inspection of chest normal Chest Narrative: Right-sided tunneled HD catheter in place. Dried blood noted below bandage and some bruising noted in upper chest to right side of neck. Resp normal respiratory effort and no use of accessory muscles Resp Narrative: Breathing comfortably on 2 L nasal cannula at rest. Decreased breath sounds in bilateral lung baseswith mild crackles noted, no wheezing noted. Stable. Cardio regular rate, regular rhythm, no murmurs and peripheral pulses 2+ throughout GI normal to inspection, nondistended, normoactive bowel sounds, soft to palpation,non-tender and non-distended Back/Spine normal ROM Extremity Extremity Narrative: +2-3 lower extremity pitting edema noted. Stable. Toe wounds with black escharnoted consistent withdry gangrene. Skin no rashes or lesions noted Neuro moves all extremities and no focal motor deficits Assessment & Plan Assessment/Plan (1) Acute on chronic renal failure: (2) Hyperkalemia: (3) Right hallux osteomyelitis: PLAN: Plan Patient is a 74-year-old female who presented to [facility] ED on 03/13/2025 with fatigue and abnormal labs. 1. Severe JOSUE on CKD stage IIIb with hyperkalemia and metabolic acidosis ? Nephrology following. Creatinine 5.10, BUN 88, potassium 6.7 on admit. Baseline creatinine 1.6-1.7. Potassium worsened to 7.4 on morning of 03/14; no EKG changes noted and treated with calcium/insulin/dextrose/Kayexalate/sodium bicarbonate push with repeat potassium 6.3. Unclear etiology for JOSUE at this time. Renal ultrasound benign. Appears volume overloaded on exam but urine sodium low. Given 1 dose of IV Lasix with very minimal urine output. Repeat BMPs on 03/15 and 03/16 without improvement. Tunneled HD catheter placed and HD initiated on 03/16. Will plan for 3 HD sessions through 03/18 likely followed by [facility] 3 days per week schedule moving forward. Per nephrology, will consider kidney biopsyin the future for further evaluation but toe osteomyelitis needs to be addressed first. Continue tomonitor daily labs. 2. Acute on chronic HFrEF with hypoxia, hypertension, hyperlipidemia ? Cardiology following. Initially diagnosed with HFrEF with EF 40 to 45% in October. Was started on Coreg and lisinopril then but unfortunately repeat echo on 12/12 showed EF of 30% with moderate to severe global LV hypokinesis. Saw cardiology in the office on 03/12 and noted to have 17 pound weightgain. Labs drawn on 03/12 with findings as above as well as BNP greater than 70,000. Initiated on dialysis as noted above. Appreciate cardiology and nephrology recommendations going forward. Okay to continue home aspirin, statin and Coreg. 3. Right great toe osteomyelitis ? Podiatry and wound care following. Noted to have dry gangrene on foot on 03/15. Wound care was ableto probe down to bone. Per podiatry, patient with no systemic signs of infection but does have clinical evidence of osteomyelitis to the right great toe. X-ray results confirm this and arterial studyresults withadequate blood flow to the digit. Planning for right great toe amputation on Monday 03/19. Will treat with broad-spectrum antibiotics until then. Podiatry suspects that after amputation thesource of infection will be cleared and therewill be no further need for antibiotics. 4. Acute on chronic debility ? PT/OT/case management following. Patient with fairly poor therapy scores and now with right greattoe osteomyelitis with need for amputation as noted above. Presumed that patient will need SNF placement on discharge. 5. Concern for UTI ? UA with 500 leukocyte esterase, negative nitrates, 4+ bacteria, 50-100 WBCs. Urine culture with no growth. Was initially on IV ceftriaxone, now on broad- spectrum antibiotics as above. Will complete5-day course of antibiotics while inpatient. 6. Elevated troponin ? Cardiology following as above. Troponin trend 159 > 159 > 160 on admit. No new ischemic EKGchanges noted. No chest pain noted. Suspected demand ischemiasecondary to HFrEF and JOSUE as noted above, no further cardiac workup needed. Chronic medical conditions: ? Class III obesity: BMI 50 on admit. Complicates hospital course, care and prognosis. ? Type 2 diabetes mellitus: Hold home metformin and dapagliflozin. Treating with sliding scale insulin with meals for now, adjust as needed. ? Hypothyroidism: Continue home Synthroid. DVT prophylaxis: Heparin subcu CODE STATUS: Full code, verified Expected disposition: Likely SNF, TBD Total clinical time spent by myself addressing the patient's medical issues, reviewing all the data, and collaborating with patient's care team: 35 minutes. Charges/Coding Visit Charges Inpatient E&M: 03535 Subs Hosp L2 03/17/25 1259 Cosigner Signature (if applicable): CC: ~ Signed [facility]05-03-2025 Progress note Author Lucas Coronado [facility] Note Date/Time March 17, 2025 9:29am [facility] Medical Records Department [address] [place] [address] Progress Note 03/17/25 0927 MR#: [id number] Acct: [id number] Name: MISAEL MEDINA Rep #:[id number] : 1950 74 From: Lucas Coronado DPM PCP: Dr. Donal Castle MD Status:ADM IN Location: [place] [address] Subjective Subjective Patient resting comfortably. Denies constitutional symptoms. Understanding requirement right hallux amputation. Objective Data Objective Data Vital Signs: Vital Signs Temp Pulse Resp BP Pulse Ox O2 Del Method O2 Flow Rate 98.1 F 67 20 H 146/71 H 97 Nasal Cannula 3 03/17/25 07:00 03/17/25 08:58 03/17/25 08:58 03/17/25 08:58 03/17/25 07:00 03/17/25 08:58 03/17/25 08:58 Oxygen Flow Rate (L/min) 3 Oxygen Delivery Method Nasal Cannula Weight: 120.6 kg Body Mass Index (BMI) 52.2 Intake & Output: Intake and Output for Last 24 Hours 03/15/25 03/16/25 03/17/25 23:59 23:59 23:59 Intake Total 490 / 490 1115 / 1115 Output Total 150 / 150 1080 / 1130 200 / 200 Balance 340 / 340 35 / -15 -200 / -200 Lab / Micro Data 03/16/25 04:04 03/17/25 04:27 Labs: Laboratory Results - last 24 hr 03/15/25 10:05: Double Strand DNA Ab <1 03/16/25 09:25: S.aureus Protein A PCR NEGATIVE, MRSA (PCR) Negative 03/16/25 14:42: POC Glucose 111 H 03/16/25 18:06: POC Glucose 107 H 03/16/25 21:42: POC Glucose 91 03/17/25 04:27: Sodium 136, Potassium 4.9, Chloride 106, Carbon Dioxide 17.4 L, Anion Gap 13, BUN 71 H, Creatinine 4.76 H, Estim Creat Clear Calc 12.37 L, Est GFR (MDRD) Non-Af 9 L, BUN/Creatinine Ratio 15.0, Glucose 80, Calcium 8.0 03/17/25 06:34: POC Glucose 77 Micro: Microbiology 03/16/25 09:25 Wound - Toe Gram Stain - Final 03/14/25 18:00 Urine Catheter - Catheter Urine Culture - Preliminary Culture exhibits no growth. Radiography Diagnostic Testing: Radiology Impression Chest X-Ray 03/16/25 12:45 IMPRESSION: 1. Placement of RIGHT IJ CVC with tip projecting over the mid to lower SVC. No visible pneumothorax. 2. Otherwise similar appearance of the chest. Reading Location: [facility] Foot X-Ray 03/16/25 12:45 IMPRESSION: Cortical bone irregularity along the medial aspect of the 1st distal phalanx (1st great toe). Narrowing of the 1st interphalangeal joint concerning for intra-articular involvement. Reading Location: [facility] Foot X-Ray 03/16/25 12:45 IMPRESSION: DEGENERATIVE OSTEOARTHROSIS. NO ACUTE FINDINGS. Reading Location: [facility] Physical Exam Narrative Vascular: Dorsalis pedis posterior tibial pulses palpable 2/4 bilateral lower extremities. Atrophic skin changes with thinning, shiny, taut, absent digital hair growth. Neurologic: Light touch and protective sensation absent to bilateral feet. Dermatologic: Full-thickness ulceration distal tuft of right hallux extending down to the level of distal phalanx. There is noted to be purulent drainage from the wound with periwound hyperkeratosis erythema edema and warmth. No evidence of crepitus or fluctuance when palpating the wound or periwound areas. Swelling inflammation appears limited to the right great toe. There is a partial-thickness ulceration to the dorsal aspect of the left second toe. Stable granular base no acute signs of infection. Musculoskeletal: Hallux limitus right foot contributing to wound formation, hammertoe deformity left second toe. Muscular strength for bilateral lower extremity compartments. Assessment & Plan Assessment/Plan (1) Other acute osteomyelitis, right ankle and foot: PLAN: Exam performed. Vital signs stable. Bedside will evaluation performed. Patient will start dialysis Patient has no leukocytosis or acute systemic signs of infection. Locally patient has clinical evidence of osteomyelitis to the right distal phalanx of the hallux. Radiographs indicate osteomyelitis distal phalanx right hallux. Arterial studies demonstrate elevated ABIs bilaterally likely due to calcification in setting of chronic kidney disease Patient has palpable pedal pulses we will plan to proceed with digital amputation of the right hallux on Wednesday Continue to follow closely. (2) Type 2 diabetes mellitus with diabetic polyneuropathy: QUALIFIERS: Diabetes mellitus computerized mill recorder insulin use: with custodial use Qualified Code(s): E11.42 - Type 2 diabetes mellitus with diabetic polyneuropathy; Z79.4 - 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 (3) Non-pressure chronic ulcer of other part of right foot with necrosis of bone: 03/17/25 0929 <Electronically signed by Lucas Coronado DPM> Lucas Coronado DPM Cosigner Signature (if applicable): CC: ~ Signed [facility] Work Phone: [phone]) 845-911605-03-2025 Progress note Author Antonio Perdomo [facility] Note Date/Time March 17, 2025 8:24am [facility] Medical Records Department [address] [place] [address] Progress Note - Surgery 03/17/2520 MR#: [id number] Acct: [id number] Name: MISAEL MEDINA #:[id number] : 1950 74 From: Antonio Perdomo MD PCP: Dr. Donal Castle MD Status:ADM IN Location: [address] Subjective Subjective Patient seen and examined on rounds this morning. Patient is currently undergoing dialysis using her new tunneled dialysis catheter. This has been reportedly working very well and not having any functional issues. RN notes bruising involving the right side of her neck upper back and right upper chest which is new since dialysis catheter placement. There is also states that patient has quite a bit of bruising involving the left forearm from previous IV placement. Patient denies being on any chronic blood thinners but is on heparinduring this hospitalization. Otherwise she has no complaints or problems Objective Data Objective Data Vital Signs: Vital Signs Temp Pulse Resp BP Pulse Ox O2 Del Method O2 Flow Rate 98.1 F 63 18 115/72 97 Nasal Cannula 3 03/17/25 07:00 03/17/25 07:58 03/17/25 07:58 03/17/25 07:58 03/17/25 07:00 03/17/25 08:14 03/17/25 08:14 Oxygen Flow Rate (L/min) 3 Oxygen Delivery Method Nasal Cannula Weight: 265 lb 14.04 oz Body Mass Index (BMI) 52.2 Intake & Output: Intake and Output for Last 24 Hours 03/15/25 03/16/25 03/17/25 23:59 23:59 23:59 Intake Total 490 / 490 1115 / 1115 Output Total 150 / 150 1080 / 1130 200 / 200 Balance 340 / 340 35 / -15 -200 / -200 Lab / Micro Data 03/16/25 04:04 03/17/25 04:27 Labs: Laboratory Results - last 24 hr 03/15/25 10:05: Double Strand DNA Ab <1 03/16/25 09:25: S.aureus Protein A PCR NEGATIVE, MRSA (PCR) Negative 03/16/25 14:42: POC Glucose 111 H 03/16/25 18:06: POC Glucose 107 H 03/16/25 21:42: POC Glucose 91 03/17/25 04:27: Sodium 136, Potassium 4.9, Chloride 106, Carbon Dioxide 17.4 L, Anion Gap 13, BUN 71 H, Creatinine 4.76 H, Estim Creat Clear Calc 12.37 L, Est GFR (MDRD) Non-Af 9 L, BUN/Creatinine Ratio 15.0, Glucose 80, Calcium 8.0 03/17/25 06:34: POC Glucose 77 Micro: Microbiology 03/16/25 09:25 Wound - Toe Gram Stain - Final 03/14/25 18:00 Urine Catheter - Catheter Urine Culture - Preliminary Culture exhibits no growth. Radiography Diagnostic Testing: Radiology Impression Chest X-Ray 03/16/25 12:45 IMPRESSION: 1. Placement of RIGHT IJ CVC with tip projecting over the mid to lower SVC. No visible pneumothorax. 2. Otherwise similar appearance of the chest. Reading Location: [facility] Foot X-Ray 03/16/25 12:45 IMPRESSION: Cortical bone irregularity along the medial aspect of the 1st distal phalanx (1st great toe). Narrowing of the 1st interphalangeal joint concerning for intra-articular involvement. Reading Location: [facility] Foot X-Ray 03/16/25 12:45 IMPRESSION: DEGENERATIVE OSTEOARTHROSIS. NO ACUTE FINDINGS. Reading Location: [facility] Physical Exam Narrative She is alert and oriented x 3. She is in no acute distress. Right sided tunneled dialysis catheter appears to be in place and seems to be functioning well. She does have a moderate amount of bruising involving the right side of her neckright upper back and right chest. This does not appear to be increasing per nurse. Assessment & Plan Assessment/Plan (1) Chronic renal disease, stage 3, moderately decreased glomerular filtration rate between 30-59 mL/min/1.73 square meter: QUALIFIERS: Chronic kidney disease stage 3 subtype: stage 3b (GFR 30-44) Qualified Code(s): N18.32 - Chronic kidney disease, stage 3b PLAN: Plan The patient is postoperative day #1 from a right sided tunneled dialysis catheter. This appears to be functioning well. She does have some moderate bruising in this area however she also has bruising in involving the left forearm which is unrelated to the procedure. I suspect she just bruises very easily. Do not appreciate any obvious hematoma. Will continue to watch closely. Continue to use dialysis catheter as scheduled. 03/17/25823 <Electronically signed by Antonio Perdomo MD> Cosigner Signature (if applicable): CC: ~ Signed [facility] Work Phone: [phone]) 325-933405-03-2025 Progress note [facility] Medical Records Department [address] [place] [address] Progress Note 03/17/25926 MR#: [id number] Acct: [id number] Name: MISAEL MEDINA Rep #:[id number] : 1950 74 From: Lucas Coronado DPM PCP: Dr. Donal Castle MD Status:ADM IN Location: [place] [address] Subjective Subjective Patient resting comfortably. Denies constitutional symptoms. Understanding requirement right hallux amputation. Objective Data Objective Data Vital Signs: Vital Signs Temp Pulse Resp BP Pulse Ox O2 Del Method O2 Flow Rate 98.1 F 67 20 H 146/71 H 97 Nasal Cannula 3 03/17/25 07:00 03/17/25 08:58 03/17/25 08:58 03/17/25 08:58 03/17/25 07:00 03/17/25 08:58 03/17/25 08:58 Oxygen Flow Rate (L/min) 3 Oxygen Delivery Method Nasal Cannula Weight: 120.6 kg Body Mass Index (BMI) 52.2 Intake & Output: Intake and Output for Last 24 Hours 03/15/25 03/16/25 03/17/25 23:59 23:59 23:59 Intake Total 490 / 490 1115 / 1115 Output Total 150 / 150 1080 / 1130 200 / 200 Balance 340 / 340 35 / -15 -200 / -200 Lab / Micro Data 03/16/25 04:04 03/17/25 04:27 Labs: Laboratory Results - last 24 hr 03/15/25 10:05: Double Strand DNA Ab <1 03/16/25 09:25: S.aureus Protein A PCR NEGATIVE, MRSA (PCR) Negative 03/16/25 14:42: POC Glucose 111 H 03/16/25 18:06: POC Glucose 107 H 03/16/25 21:42: POC Glucose 91 03/17/25 04:27: Sodium 136, Potassium 4.9, Chloride 106, Carbon Dioxide 17.4 L, Anion Gap 13, BUN 71 H, Creatinine 4.76 H, Estim Creat Clear Calc 12.37 L, Est GFR (MDRD) Non-Af 9 L, BUN/Creatinine Ratio 15.0, Glucose 80, Calcium 8.0 03/17/25 06:34: POC Glucose 77 Micro: Microbiology 03/16/25 09:25 Wound - Toe Gram Stain - Final 03/14/25 18:00 Urine Catheter - Catheter Urine Culture - Preliminary Culture exhibits no growth. Radiography Diagnostic Testing: Radiology Impression Chest X-Ray 03/16/25 12:45 IMPRESSION: 1. Placement of RIGHT IJ CVC with tip projecting over the mid to lower SVC. No visible pneumothorax. 2. Otherwise similar appearance of the chest. Reading Location: [facility] Foot X-Ray 03/16/25 12:45 IMPRESSION: Cortical bone irregularity along the medial aspect of the 1st distal phalanx (1st great toe). Narrowing of the 1st interphalangeal joint concerning for intra-articular involvement. Reading Location: [facility] Foot X-Ray 03/16/25 12:45 IMPRESSION: DEGENERATIVE OSTEOARTHROSIS. NO ACUTE FINDINGS. Reading Location: [facility] Physical Exam Narrative Vascular: Dorsalis pedis posterior tibial pulses palpable 2/4 bilateral lower extremities. Atrophicskin changes with thinning, shiny, taut, absent digital hair growth. Neurologic: Light touch and protective sensation absent to bilateral feet. Dermatologic: Full-thickness ulceration distal tuft of right hallux extending down to the level of distal phalanx. There is noted to be purulent drainage from the wound with periwound hyperkeratosis erythema edema and warmth. No evidence of crepitus or fluctuance when palpating the wound or periwound areas. Swelling inflammation appears limited to the right great toe. There is a partial-thicknessulceration to the dorsal aspect of the left second toe. Stable granular base no acute signs of infection. Musculoskeletal: Hallux limitus right foot contributing to wound formation, hammertoe deformity left second toe. Muscular strength for bilateral lower extremity compartments. Assessment & Plan Assessment/Plan (1) Other acute osteomyelitis, right ankle and foot: PLAN: Exam performed. Vital signs stable. Bedside will evaluation performed. Patient will start dialysis Patient has no leukocytosis or acute systemic signs of infection. Locally patient has clinical evidence of osteomyelitis to the right distal phalanx of the hallux. Radiographs indicate osteomyelitis distal phalanx right hallux. Arterial studies demonstrate elevated ABIs bilaterally likely due to calcification in setting of chronic kidney disease Patient has palpable pedal pulses we will plan to proceed with digital amputation of the right hallux on Wednesday Continue to follow closely. (2) Type 2 diabetes mellitus with diabetic polyneuropathy: QUALIFIERS: Diabetes mellitus custodial insulin use: with custodial use Qualified Code(s): E11.42 -Type 2 diabetes mellitus with diabetic polyneuropathy; Z79.4 - 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 (3) Non-pressure chronic ulcer of other part of right foot with necrosis of bone: 03/17/25928 Lucas Coronado DPM Cosigner Signature (if applicable): CC: ~ Signed [facility]05-03-2025 Progress note [facility] Medical Records Department [address] [place] [address] Progress Note - Surgery 03/17/25819 MR#: [id number] Acct: [id number] Name: MISAEL MEDINA Rep #:[id number] : 1950 74 From: Antonio Perdomo MD PCP: Dr. Donal Castle MD Status:ADM IN Location: [place] [address]- Subjective Subjective Patient seen and examined on rounds this morning. Patient is currently undergoing dialysis using her new tunneled dialysis catheter. This has been reportedly working very well and not having any functional issues. RN notes bruising involving the right side of her neck upper back and right upper chest which is new since dialysis catheter placement. There is also states that patient has quite a bitof bruising involving the left forearm from previous IV placement. Patient denies being on any chronic blood thinners but is on heparinduring this hospitalization. Otherwise she has no complaints or problems Objective Data Objective Data Vital Signs: Vital Signs Temp Pulse Resp BP Pulse Ox O2 Del Method O2 Flow Rate 98.1 F 63 18 115/72 97 Nasal Cannula 3 03/17/25 07:00 03/17/25 07:58 03/17/25 07:58 03/17/25 07:58 03/17/25 07:00 03/17/25 08:14 03/17/25 08:14 Oxygen Flow Rate (L/min) 3 Oxygen Delivery Method Nasal Cannula Weight: 265 lb 14.04 oz Body Mass Index (BMI) 52.2 Intake & Output: Intake and Output for Last 24 Hours 03/15/25 03/16/25 03/17/25 23:59 23:59 23:59 Intake Total 490 / 490 1115 / 1115 Output Total 150 / 150 1080 / 1130 200 / 200 Balance 340 / 340 35 / -15 -200 / -200 Lab / Micro Data 03/16/25 04:04 03/17/25 04:27 Labs: Laboratory Results - last 24 hr 03/15/25 10:05: Double Strand DNA Ab <1 03/16/25 09:25: S.aureus Protein A PCR NEGATIVE, MRSA (PCR) Negative 03/16/25 14:42: POC Glucose 111 H 03/16/25 18:06: POC Glucose 107 H 03/16/25 21:42: POC Glucose 91 03/17/25 04:27: Sodium 136, Potassium 4.9, Chloride 106, Carbon Dioxide 17.4 L, Anion Gap 13, BUN 71 H, Creatinine 4.76 H, Estim Creat Clear Calc 12.37 L, Est GFR (MDRD) Non-Af 9 L, BUN/Creatinine Ratio 15.0, Glucose 80, Calcium 8.0 03/17/25 06:34: POC Glucose 77 Micro: Microbiology 03/16/25 09:25 Wound - Toe Gram Stain - Final 03/14/25 18:00 Urine Catheter - Catheter Urine Culture - Preliminary Culture exhibits no growth. Radiography Diagnostic Testing: Radiology Impression Chest X-Ray 03/16/25 12:45 IMPRESSION: 1. Placement of RIGHT IJ CVC with tip projecting over the mid to lower SVC. No visible pneumothorax. 2. Otherwise similar appearance of the chest. Reading Location: [id number] Foot X-Ray 03/16/25 12:45 IMPRESSION: Cortical bone irregularity along the medial aspect of the 1st distal phalanx (1st great toe). Narrowing of the 1st interphalangeal joint concerning for intra-articular involvement. Reading Location: [facility] Foot X-Ray 03/16/25 12:45 IMPRESSION: DEGENERATIVE OSTEOARTHROSIS. NO ACUTE FINDINGS. Reading Location: [facility] Physical Exam Narrative She is alert and oriented x 3. She is in no acute distress. Right sided tunneled dialysis catheter appears to be in place and seems to be functioning well. She does have a moderate amount of bruising involving the right side of her neckright upper back and right chest. This does not appear to be increasing per nurse. Assessment & Plan Assessment/Plan (1) Chronic renal disease, stage 3, moderately decreased glomerular filtration rate between 30-59 mL/min/1.73 square meter: QUALIFIERS: Chronic kidney disease stage 3 subtype: stage 3b (GFR 30-44) Qualified Code(s): N18.32 - Chronic kidney disease, stage 3b PLAN: Plan The patient is postoperative day #1 from a right sided tunneled dialysis catheter. This appears to be functioning well. She does have some moderate bruising in this area however she also has bruisingin involving the left forearm which is unrelated to the procedure. I suspect she just bruises very easily. Do not appreciate any obvious hematoma. Will continue to watch closely. Continue to use dialysis catheter as scheduled. 03/17/25 0824 Cosigner Signature (if applicable): CC: ~ Signed [facility]05-02-2025 Progress note Author Seth Garnica [facility] Note Date/Time March 16, 2025 1:44pm [facility] Medical Records Department [address] [place] [address] Progress Note - Hospitalist 03/16/25 1042 MR#: [id number] Acct: [id number] Name: MISAEL MEDINA Renée Rep #:[id number] : 1950 74 From: Seth mai DO PCP: Dr. Donal Castle MD Status:ADM [facility] Reason for Visit Reason for Visit: Diagnoses Hyperkalemia (03/13/25) Essential (primary) hypertension (03/13/25) Pulmonary hypertension, unspecified (03/13/25) Nonrheumatic aortic (valve) stenosis (03/13/25) Acute on chronic systolic (congestive) heart failure (03/13/25) Acute kidney failure, unspecified (03/13/25) Chronic kidney disease, unspecified (03/13/25) Subjective Subjective Saw patient at bedside this morning. Patient appeared similar today to previousdays, was laying back comfortably in bed and in no acute distress but did appearfatigued. She continued to report generalized malaise but no specific pain or discomfort. Gwen with wound care was in the room when I saw patient and noted that her toe findings were consistent with dry gangrene and it did probe to bone, so podiatry consult will be placed. Patient denies any pain or discomfortin her toes. No other new concerns today. Objective Data Objective Data Vital Signs: Vital Signs Temp Pulse Resp BP Pulse Ox O2 Del Method O2 Flow Rate 97.6 F L 71 20 H 135/62 H 92 Nasal Cannula 2 03/16/25 10:21 03/16/25 10:21 03/16/25 10:21 03/16/25 10:21 03/16/25 10:21 03/16/25 08:20 03/16/25 10:21 Oxygen Flow Rate (L/min) 2 Oxygen Delivery Method Nasal Cannula Weight: 121.8 kg Body Mass Index (BMI) 52.7 Intake & Output: Intake and Output for Last 24 Hours 03/14/25 03/15/25 03/16/25 23:59 23:59 23:59 Intake Total 300 / 300 490 / 490 Output Total 150 / 150 150 / 150 50 / 50 Balance 150 / 150 340 / 340 -50 / -50 Lab / Micro Data 03/16/25 04:04 03/16/25 04:04 Labs: Laboratory Results - last 24 hr 03/13/25 18:33: Hep Bs Antigen Nonreactive 03/15/25 10:05: PT 15.5 H, INR 1.2, APTT 28.0 03/15/25 11:25: POC Glucose 153 H 03/15/25 15:10: Potassium 5.8 H 03/15/25 16:39: POC Glucose 149 H 03/15/25 21:36: POC Glucose 176 H 03/16/25 04:04: WBC 8.1, RBC 4.07 L, Hgb 10.4 L, Hct 35.6 L, MCV 87.5, MCH 25.6 L, MCHC 29.2 L, RDW Std Deviation 55.1 H, RDW Coeff of Leif 17.5 H, Plt Count 187, MPV 9.3, Immature Gran % (Auto) 0.400, Neut % (Auto) 74.3 H, Lymph % (Auto)13.5 L, [place] % (Auto) 9.3, Eos % (Auto) 2.3, Baso % (Auto) 0.2, Absolute Neuts (auto) 6.0, Absolute Lymphs (auto) 1.10, Nucleated RBC % 0.7, Sodium 137, Potassium 5.6 H, Chloride 108, Carbon Dioxide 16.4 L, Anion Gap 13, BUN 96 H, Creatinine 5.96 H, Estim Creat Clear Calc 9.88 L*, Est GFR (MDRD) Non-Af 7 L, BUN/Creatinine Ratio 16.2, Glucose 138 H, Hemoglobin A1c 7.3 H, Calcium 8.2 03/16/25 06:19: POC Glucose 130 H Micro: Microbiology 03/14/25 18:00 Urine Catheter - Catheter Urine Culture - Preliminary Culture exhibits no growth. Physical Exam Const alert and no apparent distress Constitutional Narrative: Elderly female, class III obesity, mildly fatigued appearing, alert and orientedto person and place but not time and some confusion with answering questions, otherwise sitting back comfortably in bed and in no acute distress. Stable. General Appearance: cooperative and comfortable HEENT normocephalic, head/scalp atraumatic, hearing grossly normal bilaterally, nasal mucous membranes and turbinates normal and moist oral mucous membranes Eyes PERRL, EOMs intact bilaterally and conjunctivae normal Neck full ROM Chest inspection of chest normal Resp normal respiratory effort and no use of accessory muscles Resp Narrative: Breathing comfortably on 2 L nasal cannula at rest. Decreased breath sounds in bilateral lung bases with mild crackles noted, no wheezing noted. Stable. Cardio regular rate, regular rhythm, no murmurs and peripheral pulses 2+ throughout GI normal to inspection, nondistended, normoactive bowel sounds, soft to palpation,non-tender and non-distended Back/Spine normal ROM Extremity Extremity Narrative: +2-3 lower extremity pitting edema noted. Stable. Toe wounds with black escharnoted consistent with dry gangrene. Skin no rashes or lesions noted Neuro moves all extremities and no focal motor deficits Assessment & Plan Assessment/Plan (1) Acute on chronic renal failure: (2) Hyperkalemia: PLAN: Plan Patient is a 74-year-old female who presented to [facility] ED on 03/13/2025 with fatigue and abnormal labs. 1. Severe JOSUE on CKD stage IIIb with hyperkalemia and metabolic acidosis ? Nephrology following. Creatinine 5.10, BUN 88, potassium 6.7 on admit. Baseline creatinine 1.6-1.7. Potassium worsened to 7.4 on morning of 03/14; no EKG changes noted and treated with calcium/insulin/dextrose/Kayexalate/sodium bicarbonate push with repeat potassium 6.3. Unclear etiology for JOSUE at this time. Renal ultrasound benign. Appears volume overloaded on exam but urine sodium low. Given 1 dose of IV Lasix with very minimal urine output. Repeat BMPs on 03/15 and 03/16 without improvement. Surgery planning to place tunneled HD catheter this morning and dialysis will be initiated this afternoon. Monitor daily labs. 2. Acute on chronic HFrEF with hypoxia, hypertension, hyperlipidemia ? Cardiology following. Initially diagnosed with HFrEF with EF 40 to 45% in October. Was started on Coreg and lisinopril then but unfortunately repeat echo on 12/12 showed EF of 30% with moderate to severe global LV hypokinesis. Saw cardiology in the office on 03/12 and noted to have 17 pound weight gain. Labs drawn on 03/12 with findings as above as well as BNP greater than 70,000. Planning for dialysis as noted above. Appreciate cardiology and nephrology recommendations going forward. Okay to continue home aspirin, statin and Coreg. 3. Acute on chronic debility ? PT/OT/case management following. Patient with fairly poor therapy scores, will likely need SNF placement on discharge. 4. Concern for UTI ? UA with 500 leukocyte esterase, negative nitrates, 4+ bacteria, 50-100 WBCs. Urine culture with no growth. Will complete 5-day course of IV ceftriaxone for empiric treatment. 5. Elevated troponin ? Cardiology following as above. Troponin trend 159 > 159 > 160 on admit. No new ischemic EKG changes noted. No chest pain noted. Suspected demand ischemiasecondary to HFrEF and JOSUE as noted above, no further cardiac workup needed. Chronic medical conditions: ? Class III obesity: BMI 50 on admit. Complicates hospital course, care and prognosis. ? Type 2 diabetes mellitus: Hold home metformin and dapagliflozin. Treating with sliding scale insulin with meals for now, adjust as needed. ? Hypothyroidism: Continue home Synthroid. DVT prophylaxis: Heparin subcu CODE STATUS: Full code, verified Expected disposition: Likely SNF, TBD Total clinical time spent by myself addressing the patient's medical issues, reviewing all the data, and collaborating with patient's care team: 35 minutes. Charges/Coding Visit Charges Inpatient E&M: 48121 Subs Hosp L2 03/16/25 1106 <Electronically signed by Seth Garnica DO> Cosigner Signature (if applicable): CC: ~ Signed ADDENDUM by Dr. Seth Garnica DO on 03/16/25 at 1343 Addendum Patient evaluated by wound care this morning who noted dry gangrene of the rightgreat toe. Noted that wound did probe to bone. Podiatry consulted. Discussed with Dr. Coronado this afternoon and he suspects osteomyelitis of the right greattoe. Will start broad-spectrum antibiotics and await wound cultures. Vascular studies ordered by podiatry and if they ensure good healing potential, plan willbe for right great toe amputation sometime next week. 03/16/25 1343<Electronically signed by Seth Garnica DO> Cosigner Signature (if applicable): cc: ~* Signed [facility] Work Phone: 1(580) 571-891405-02-2025 Consult note Author Lucas Coronado [facility] Note Date/Time March 16, 2025 1:37pm [facility] Medical Records Department [address] [place] [address] Consultation 03/16/25 1332 MR#: [id number] Acct: [id number] Name: MISAEL MEDINA Rep #:[id number] : 1950 74 From: Lucas Coronado DPJamarcus PCP: Dr. Donal Castle MD Status:ADM [id number] Assessment & Plan Assessment/Plan (1) Other acute osteomyelitis, right ankle and foot: PLAN: Exam performed. Vital signs stable. Patient seen in PACU recovering from tunnel catheter placement for dialysis purposes. Patient is ESRD with creatinine of 5.96, BUN 96. Patient has no leukocytosis or acute systemic signs of infection. Locally patient has clinical evidence of osteomyelitis to the right distal phalanx of the hallux. Radiographs were ordered, arterial studies were ordered. Discussed with patient she will likely require partial versus complete amputation of right hallux. Will await arterial studies and x-ray results to determine definitive amputation level and blood flow status to ensure adequate healing potential prior to procedure as patient is medically stable at this time. Will follow-up with patient tomorrow. (2) Type 2 diabetes mellitus with diabetic polyneuropathy: QUALIFIERS: Diabetes mellitus custodial insulin use: with custodial use Qualified Code(s): E11.42 - Type 2 diabetes mellitus with diabetic polyneuropathy; Z79.4 - 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 (3) Non-pressure chronic ulcer of other part of right foot with necrosis of bone: HPI Consult Data Date of Consult: 03/16/25 HPI Narrative HPI Narrative: MISAEL MEDINA, is a 74 F who presents with ESRD and new onset dialysis catheter placed. Patient was seen in PACU. Patient [place] constitutional symptoms. Patient did not realize she had a right hallux ulceration. Patient denies any pain and has no feeling to bilateral feet. Patient denies leg cramping. Patient has no other complaints. [facility] Medical History Congestive heart failure Hypothyroidism Osteoporosis Morbid obesity with BMI of 45.0-49.9, adult Wears glasses Post-menopausal Thyroid disease Diabetes Uses wheelchair Ambulates with cane Arthritis High cholesterol Back pain TIA (transient ischemic attack) Dietary restriction Non-smoker History of pain when walking History of transesophageal echocardiography (DESTIN) Cardiology follow-up encounter Hypertension Hypertension Diabetes Home Medications ?Medication ?Instructions ?Recorded ?Last Taken ?Type atorvastatin 10 mg tablet 10 mg PO QHS cholesterol 03/12/25 History levothyroxine 100 mcg tablet 100 mcg PO DAILY thyroid 08/31/22 03/13/25 History (Synthroid) aspirin 81 mg chewable tablet 81 mg PO DAILYCM 90 days #90 tabs 10/21/24 03/13/25 Rx carvedilol 6.25 mg tablet (Coreg) 6.25 mg PO BID #60 t abs 12/01/24 03/13/25 Rx dapagliflozin propanediol 10 mg 10 mg PO QDAY #30 tabs 03/12/25 Unknown Rx tablet (Farxiga) furosemide 40 mg tablet 40 mg PO QAM #30 tabs 03/13/25 Rx metformin 500 mg tablet 500 mg PO BID 03/12/2503/13 History Allergy/AdvReac Type Severity Reaction Status Date / Time No Known Allergies Allergy Verified 03/13/25 13:58 Family History Mother Hypertension Father Heart disease Surgical History Hx of colonoscopy Hx of cholecystectomy H/O: hysterectomy Social History household members: spouse Smoking Status: Never smoker alcohol intake: never substance use type: does not use caffeine: No ROS Constitutional Constitutional: Denies systems reviewed and no addt'l complaints, except as documented, chills or daytime sleepiness Eyes Eyes: Denies acute decrease in peripheral vision, blindness or change in vision ENT HEENT: Denies change in voice, epistaxis or facial pain Cardiovascular Cardiovascular: Denies abdominal edema, abdominal pain or chest pain at rest Respiratory/Chest Respiratory/Chest: Denies change in phlegm color, chest congestion or dyspnea Gastrointestinal Gastrointestinal: Denies belching, bloating or constipation Genitourinary Genitourinary: Denies anuria, burning urination or difficulty with ejaculations Musculoskeletal Musculoskeletal: Denies atrophy, back pain or limited range of motion Integumentary Integumentary: Denies bleeding lesions, change in hair or jaundice Physical Exam Narrative Vascular: Dorsalis pedis posterior tibial pulses palpable 2/4 bilateral lower extremities. Atrophic skin changes with thinning, shiny, taut, absent digital hair growth. Neurologic: Light touch and protective sensation absent to bilateral feet. Dermatologic: Full-thickness ulceration distal tuft of right hallux extending down to the level of distal phalanx. There is noted to be purulent drainage from the wound with periwound hyperkeratosis erythema edema and warmth. No evidence of crepitus or fluctuance when palpating the wound or periwound areas. Swelling inflammation appears limited to the right great toe. There is a partial-thickness ulceration to the dorsal aspect of the left second toe. Stable granular base no acute signs of infection. Musculoskeletal: Hallux limitus right foot contributing to wound formation, hammertoe deformity left second toe. Muscular strength for bilateral lower extremity compartments. Lab / Micro Data 03/16/25 04:04 03/16/25 04:04 Labs: Laboratory Results - last 24 hr 03/13/25 18:33: Hep Bs Antigen Nonreactive 03/15/25 10:05: Double Strand DNA Ab <1 03/15/25 15:10: Potassium 5.8 H 03/15/25 16:39: POC Glucose 149 H 03/15/25 21:36: POC Glucose 176 H 03/16/25 04:04: WBC 8.1, RBC 4.07 L, Hgb 10.4 L, Hct 35.6 L, MCV 87.5, MCH 25.6 L, MCHC 29.2 L, RDW Std Deviation 55.1 H, RDW Coeff of Leif 17.5 H, Plt Count 187, MPV 9.3, Immature Gran % (Auto) 0.400, Neut % (Auto) 74.3 H, Lymph % (Auto)13.5 L, [place] % (Auto) 9.3, Eos % (Auto) 2.3, Baso % (Auto) 0.2, Absolute Neuts (auto) 6.0, Absolute Lymphs (auto) 1.10, Nucleated RBC % 0.7, Sodium 137, Potassium 5.6 H, Chloride 108, Carbon Dioxide 16.4 L, Anion Gap 13, BUN 96 H, Creatinine 5.96 H, Estim Creat Clear Calc 9.88 L*, Est GFR (MDRD) Non-Af 7 L, BUN/Creatinine Ratio 16.2, Glucose 138 H, Hemoglobin A1c 7.3 H, Calcium 8.2 03/16/25 06:19: POC Glucose 130 H 03/16/25 09:25: S.aureus Protein A PCR NEGATIVE, MRSA (PCR) Negative Micro: Microbiology 03/16/25 09:25 Wound - Toe Gram Stain - Final 03/14/25 18:00 Urine Catheter - Catheter Urine Culture - Preliminary Culture exhibits no growth. 03/16/25 1337 <Electronically signed by Lucas Coronado DPM> Cosigner Signature (if applicable): CC: Dr. Donal Castle MD~ Signed [facility] Work Phone: 1(524) 400-718205-02-2025 Radiology Diagnostic study note [facility] Imaging Services [address] [place] [id number] Foot min 3 Views MR#: [id number] Acct: [id number] Name: MISAEL MEDINA Rep #: [id number] : 1950 F 74 From: Briana Davenport MD PCP: Dr. Donal Castle MD Status: ADM IN Study:Foot min 3 Views Date of Exam: 01/09 Exam# [id number] Ordering Dr: Lucas Coronado DPM PROCEDURE: FOOT MIN 3 VIEWS 03/16/2025 REASON FOR EXAM: FOOT WOUNDS TECHNIQUE: 3 views of the right foot. COMPARISON: None. FINDINGS: Bones: Diffuse osseous demineralization. Prior amputation of the distal phalanxof the great toe, with cortical bone irregularity along the medial aspect of the distal phalanx. There is narrowing of the 1st interphalangeal joint. Joints: Normal alignment. Severe degenerative changes. Soft tissues: Mild soft tissue swelling/edema. Other: Vascular calcifications. No radiopaque foreign body or subcutaneous gas. RAD/Foot min 3 Views IMPRESSION: Cortical bone irregularity along the medial aspect of the 1st distal phalanx (1st great toe). Narrowing of the 1st interphalangeal joint concerning for intra-articular involvement. Reading Location: [facility] CC: TAVO Coronado; Dr. Donal Castle MD ~ Deal Architect: Signed [facility]05-02-2025 Consult note Author Tyler Juan [facility] Note Date/Time March 16, 2025 1:01pm [facility] Medical Records Department [address] [place] [address] Anesthesia Postop Eval II 03/16/25 1301 MR#: [id number] Acct: [id number] Name: MISAEL MEDINA Rep #:[id number] : 1950 74 From: Tyler Juan MD PCP: Dr. Donal Castle MD Status:ADM IN Y Race: C Location: [place] [address]-1 Anesthesia Postop Eval I Sum Postop Eval Completion status Anesthesia document: Postop Eval 1 completed: Yes Anesthesia Postop Eval I Summary Anesthesia Postop Eval I Summary: Anesthesia Postop Eval I: Assessment Summary Airway patent Yes 03/16/25 12:51 DIRECTOR OF [email or web address] Spontaneous unlabored Yes 03/16/25 12:51 DIRECTOR OF [email or web address] respirations Mental status nausea No 03/16/25 12:51 DIRECTOR OF [email or web address] Vomiting No 03/16/25 12:51 DIRECTOR OF [email or web address] Anesthesia Postop Eval I: Fluid Summary Crystalloid volume administer 300 03/16/25 12:51 DIRECTOR OF [email or web address].TNES (ml) Colloids volume administered ( ml) Blood Product volume administered (ml) Total IV fluid infused 300 03/16/25 12:51 DIRECTOR OF [email or web address] Anesthesia Postop Eval I: Summary Notes Anesthesia Complication No 03/16/25 12:51 DIRECTOR OF [email or web address].[email or web address] Anesthesia Complication Comment: Post-operative progress note Anesthesia: Postop Eval II Evaluation Mental status: Awake Pain Level: 0 nausea: No Vomiting: No 03/16/25 1301 <Electronically signed by Tyler Juan MD > Date _ Tyler Juan MD Cosigner Signature: Date CC: ~ Signed [facility] Work Phone: 1(382) 938-147905-02-2025 Radiology Diagnostic study note [facility] Imaging Services [address] [facility] [address] [place], [place] [address] Foot min 3 Views MR#: [id number] Acct: [id number] Name: MISAEL MEDINA Rep #: [id number] : 1950 F 74 From: Briana Davenport MD PCP: Dr. Donal Castle MD Status: ADM IN Study:Foot min 3 Views Date of Exam: 01/09 Exam# [id number] Ordering Dr: Lucas Coronado DPM PROCEDURE: FOOT MIN 3 VIEWS 03/16/2025 REASON FOR EXAM: WOUND TECHNIQUE: 3 views of the left foot. COMPARISON: None. FINDINGS: Bones: Diffuse osseous demineralization. No acute fracture or suspicious osseous lesion. Joints: Normal alignment. Moderate degenerative changes. Soft tissues: Mild soft tissue swelling/edema. Other: Vascular calcifications. No radiopaque foreign body or subcutaneous gas. RAD/Foot min 3 Views IMPRESSION: DEGENERATIVE OSTEOARTHROSIS. NO ACUTE FINDINGS. Reading Location: [facility] CC: DPM Dr. Lucas Coronado; Dr. Donal Castle MD ~ Deal Architect: Signed [facility]05-02-2025 Consult note Author Santiago Maebitt [facility] Note Date/Time March 16, 2025 12:51p m [facility] Medical Records Department [address] [place] [address] Anesthesia Postop Eval I 03/16/25 1251 MR#: [id number] Acct: [id number] Name: MISAEL MEDINA Rep #:[id number] : 1950 74 From: Santiago ROSAS PCP: Dr. Donal Castle MD Status:ADM IN Y Race: C Location: [place] [address] Anesthesia: Postop Eval I Current Vital Signs Temperature: 96.8 F Pulse Rate: 68 Blood Pressure: 121/53 Respiratory Rate: 18 Pulse Ox: 94 Assessment Airway patent: Yes Spontaneous unlabored respirations: Yes nausea: No Vomiting: No Anesthesia Complication: No Fluid Hydration Crystalloid volume administer (ml): 300 Total IV fluid infused: 300 Progress Note Anesthesia document: Postop Eval 1 completed: Yes 03/16/25 1251 <Electronically signed by Santiago Christianson DIRECTOR OF ATHLETICS> Date _ Santiago Christianson DIRECTOR OF ATHLETICS Cosigner Signature: Date CC: ~ Signed [facility] Work Phone: 1(314) 742-994105-02-2025 Radiology Diagnostic study note [facility] Imaging Services [address] [place] [address] CXR for Line Placement MR#: [id number] Acct: [id number] Name: MISAEL MEDINA Rep #: [id number] : 1950 F 74 From: Madeleine Christiansen MD PCP: Dr. Donal Castle MD Status: ADM IN Study:CXR for Line Placement Date of Exam: 03/16/25 Exam# [id number] Ordering Dr: Dennise Francois MD PROCEDURE: CXR FOR LINE PLACEMENT (RADCXRLP), 03/16/2025 REASON FOR EXAM: STATUS POST LINE PLACEMENT TECHNIQUE: A single portable AP view of the chest was obtained. COMPARISON: 03/13/2025 FINDINGS: Placement of RIGHT IJ CVC with tip projecting over the mid to lower SVC. No visible pneumothorax. Otherwise similar appearance of the chest. RAD/CXR for Line Placement IMPRESSION: 1. Placement of RIGHT IJ CVC with tip projecting over the mid to lower SVC. No visible pneumothorax. 2. Otherwise similar appearance of the chest. Reading Location: [id number] CC: Dr. Donal Castle MD; Dr. Joao Francois MD ~ Deal Architect: Signed [facility]05-02-2025 Procedure note [facility] Medical Records Department [address] [place] [address] Operative Report 03/16/25 1240 MR#: [id number] Acct: [id number] Name: MISAEL MEDINA Rep #:[id number] : 1950 74 From: Joao Chinchilla PCP: Dr. Donal Castle MD Status:ADM IN Location: [facility] [id number]- 1 Procedures Cardiovascular CF Procedures 33xxx-39xxx: [id number] Insert tunneled cv cath Operative Report (Standard) Operative Information Date of Procedure: 03/16/25 Pre-Operative Diagnosis: Acute on chronic renal failure requiring initiation of hemodialysis Post-Operative Diagnosis: Same Surgery/Procedure Performed: Ultrasound and fluoroscopic guided insertion of right internal jugulartunneled hemodialysis cath site superintendent: No Type of Anesthesia: MAC/Supplemental RN Documented Start/Stop Times: Operation Date: 03/16/25 11:00 Case Time Into Pre-Op 03/16/25 10:02 Anesthesia Start 03/16/25 11:26 Into Room 03/16/25 11:26 Procedure Start 03/16/25 12:04 Procedure End 03/16/25 12:35 Anesthesia End 03/16/25 12:44 Out of Room 03/16/25 12:44 Into Recovery 03/16/25 12:45 Out of Recovery 03/16/25 13:27 Procedure Start Time: 12:04 Procedure Stop Time: 12:35 Select all DRAINS/GRAFTS/IMPLANTS that apply: Implanted device (Palindrome 14.5 Nepalese by 19 cm) Implanted device details: Reference [id number], lot [id number] Estimated Blood Loss: 15 Specimen collected: No Description of surgery: After appropriate identification in the preoperative holding area the patient was brought to the operating room where they were positioned supine on the operating room table. Preoperative antibioticswere completely administered by anesthesia. Sedation was begun per anesthesia and I confirmed patency of the right internal jugular vein with bedside ultrasound. Sedation was begun by anesthesia. It became quickly apparent that patient cannot lie flat without desaturating so she was placed in slight reverse Trendelenburg and a nonrebreather mask was fitted. After saturations improved her neck wasprepped and draped in the usual sterile fashion. Formal timeout was conducted to confirm both the patient and the procedure. Procedure was begun with ultrasound-guided access of the right internal jugular vein using a using the standard 035 guidewire. Although the vein was accessed was 1 attempt the wire required a second attempt to feed in an antegrade fashion due to some resistancewith the initial passage. However the second attempt was made with less resistance and fluoroscopy confirmed appropriate position of the wire. At this point I made a measurement from the insertion site to the mid atrium of approximately 16 cm. Desiring some room for the patient's tunneling/cuff placement, elected to proceed with a 19 cm catheter. The insertion site was then enlarged sharply and bluntly. Measuring back from the proximal insertion site on the catheter, we determined that the tunneling site would need to be approximately 6 cm away from the insertion site. Therefore this was measured out on the patient's chest and a counterincision was made at this point after instilling local anesthetic. A g entle curve of the tunneling tract to the insertion site was also instilled with local anesthetic. Then the catheter was connected to the tunneling device and was tunneled to the insertion site confirming the position of the catheter cuff within the tunnel. Next the insertion site was serially dilated and the peel- away sheath was placed under fluoroscopy. The catheter was fed through the peel-away sheath and once we neared completion another fluoroscopic image was obtained. Functionally, the catheter was tested with aspiration and flush of injectable saline which it did with ease. The insertion site was then closed with a 2 interrupted 2-0 nylon stitches. Another 2-0 nylon stitch was used to close down the insertion site atthe tunneling entrance as a means of creating a cerclage. Lastly, the catheter was secured at the tiedown points on each port with a interrupted 2-0 nylon. Now the catheter was locked with 2 mL heparinized saline (concentration 1000 units/mL) per package specification. Chlorhexidine gel dressing was placed about the catheter. A small OpSite was applied to the insertion site. Patient was then allowed to emerge from sedation and was taken to PACU in stable condition. A chest x-ray was ordered in PACU for review of the catheter placement and to exclude pneumothorax. Surgical Findings: ? Significant challenge with exposure given patient's large embolism and limitedneck ? Large and widely patent right internal jugular vein with apparently normal venous anatomy Complications Complications: No 03/16/25 5936 Cosigner Signature (if applicable): CC: TAVO Coronado; Dr. Donal Castle MD; Dr. Lorraine Grande MD; Dr. Joao Francois MD; Dr. Bandar Linares MD; Dr. Milton Muñoz MD~ [facility]05-02-2025 Progress note [facility] Medical Records Department [address] [place] [address] Progress Note - Hospitalist 03/16/25 1042 MR#: [id number] Acct: [id number] Name: MISAEL MEDINA Rep #:[id number] : 1950 74 From: Seth mai DO PCP: Dr. Donal Castle MD Status:ADM IN Location: [place] [address] Reason for Visit Reason for Visit: Diagnoses Hyperkalemia (03/13/25) Essential (primary) hypertension (03/13/25) Pulmonary hypertension, unspecified (03/13/25) Nonrheumatic aortic (valve) stenosis (03/13/25) Acute on chronic systolic (congestive) heart failure (03/13/25) Acute kidney failure, unspecified (03/13/25) Chronic kidney disease, unspecified (03/13/25) Subjective Subjective Saw patient at bedside this morning. Patient appeared similar today to previousdays, was laying back comfortably in bed and in no acute distress but did appearfatigued. She continued to report generalized malaise but no specific pain or discomfort. Gwen with wound care was in the room when I saw patient and noted that her toe findings were consistent with dry gangrene and it did probe to bone, so podiatry consult will be placed. Patient denies any pain or discomfortin her toes. No other new concerns today. Objective Data Objective Data Vital Signs: Vital Signs Temp Pulse Resp BP Pulse Ox O2 Del Method O2 Flow Rate 97.6 F L 71 20 H 135/62 H 92 Nasal Cannula 2 03/16/25 10:21 03/16/25 10:21 03/16/25 10:21 03/16/25 10:21 03/16/25 10:21 03/16/25 08:20 03/16/25 10:21 Oxygen Flow Rate (L/min) 2 Oxygen Delivery Method Nasal Cannula Weight: 121.8 kg Body Mass Index (BMI) 52.7 Intake & Output: Intake and Output for Last 24 Hours 03/14/25 03/15/25 03/16/25 23:59 23:59 23:59 Intake Total 300 / 300 490 / 490 Output Total 150 / 150 150 / 150 50 / 50 Balance 150 / 150 340 / 340 -50 / -50 Lab / Micro Data 03/16/25 04:04 03/16/25 04:04 Labs: Laboratory Results - last 24 hr 03/13/25 18:33: Hep Bs Antigen Nonreactive 03/15/25 10:05: PT 15.5 H, INR 1.2, APTT 28.0 03/15/25 11:25: POC Glucose 153 H 03/15/25 15:10: Potassium 5.8 H 03/15/25 16:39: POC Glucose 149 H 03/15/25 21:36: POC Glucose 176 H 03/16/25 04:04: WBC 8.1, RBC 4.07 L, Hgb 10.4 L, Hct 35.6 L, MCV 87.5, MCH 25.6 L, MCHC 29.2 L, RDWStd Deviation 55.1 H, RDW Coeff of Leif 17.5 H, Plt Count 187, MPV 9.3, Immature Gran % (Auto) 0.400, Neut % (Auto) 74.3 H, Lymph % (Auto)13.5 L, Bolivar % (Auto) 9.3, Eos % (Auto) 2.3, Baso % (Auto) 0.2, Absolute Neuts (auto) 6.0, Absolute Lymphs (auto) 1.10, Nucleated RBC % 0.7, Sodium 137, Potassium5.6 H, Chloride 108, Carbon Dioxide 16.4 L, Anion Gap 13, BUN 96 H, Creatinine 5.96 H, Estim Creat Clear Calc 9.88 L*, Est GFR (MDRD) Non-Af 7 L, BUN/Creatinine Ratio 16.2, Glucose 138 H, Hemoglobin A1c 7.3 H, Calcium 8.2 03/16/25 06:19: POC Glucose 130 H Micro: Microbiology 03/14/25 18:00 Urine Catheter - Catheter Urine Culture - Preliminary Culture exhibits no growth. Physical Exam Const alert and no apparent distress Constitutional Narrative: Elderly female, class III obesity, mildly fatigued appearing, alert and orientedto person and placebut not time and some confusion with answering questions, otherwise sitting back comfortably in bedand in no acute distress. Stable. General Appearance: cooperative and comfortable HEENT normocephalic, head/scalp atraumatic, hearing grossly normal bilaterally, nasal mucous membranes and turbinates normal and moist oral mucous membranes Eyes PERRL, EOMs intact bilaterally and conjunctivae normal Neck full ROM Chest inspection of chest normal Resp normal respiratory effort and no use of accessory muscles Resp Narrative: Breathing comfortably on 2 L nasal cannula at rest. Decreased breath sounds in bilateral lung baseswith mild crackles noted, no wheezing noted. Stable. Cardio regular rate, regular rhythm, no murmurs and peripheral pulses 2+ throughout GI normal to inspection, nondistended, normoactive bowel sounds, soft to palpation,non-tender and non-distended Back/Spine normal ROM Extremity Extremity Narrative: +2-3 lower extremity pitting edema noted. Stable. Toe wounds with black escharnoted consistent withdry gangrene. Skin no rashes or lesions noted Neuro moves all extremities and no focal motor deficits Assessment & Plan Assessment/Plan (1) Acute on chronic renal failure: (2) Hyperkalemia: PLAN: Plan Patient is a 74-year-old female who presented to [facility] ED on 03/13/2025 with fatigue and abnormal labs. 1. Severe JOSUE on CKD stage IIIb with hyperkalemia and metabolic acidosis ? Nephrology following. Creatinine 5.10, BUN 88, potassium 6.7 on admit. Baseline creatinine 1.6-1.7. Potassium worsened to 7.4 on morning of 03/14; no EKG changes noted and treated with calcium/insulin/dextrose/Kayexalate/sodium bicarbonate push with repeat potassium 6.3. Unclear etiology for JOSUE at this time. Renal ultrasound benign. Appears volume overloaded on exam but urine sodium low. Given 1 dose of IV Lasix with very minimal urine output. Repeat BMPs on 03/15 and 03/16 without improvement. Surgery planning to place tunneled HD catheter this morning and dialysis will be initiated this afternoon. Monitor daily labs. 2. Acute on chronic HFrEF with hypoxia, hypertension, hyperlipidemia ? Cardiology following. Initially diagnosed with HFrEF with EF 40 to 45% in October. Was started on Coreg and lisinopril then but unfortunately repeat echo on 12/12 showed EF of 30% with moderate to severe global LV hypokinesis. Saw cardiology in the office on 03/12 and noted to have 17 pound weightgain. Labs drawn on 03/12 with findings as above as well as BNP greater than 70,000. Planning for dialysis as noted above. Appreciate cardiology and nephrology recommendations going forward. Okay to continue home aspirin, statin and Coreg. 3. Acute on chronic debility ? PT/OT/case management following. Patient with fairly poor therapy scores, will likely need SNF placement on discharge. 4. Concern for UTI ? UA with 500 leukocyte esterase, negative nitrates, 4+ bacteria, 50-100 WBCs. Urine culture with no growth. Will complete 5-day course of IV ceftriaxone for empiric treatment. 5. Elevated troponin ? Cardiology following as above. Troponin trend 159 > 159 > 160 on admit. No new ischemic EKGchanges noted. No chest pain noted. Suspected demand ischemiasecondary to HFrEF and JOSUE as noted above, no further cardiac workup needed. Chronic medical conditions: ? Class III obesity: BMI 50 on admit. Complicates hospital course, care and prognosis. ? Type 2 diabetes mellitus: Hold home metformin and dapagliflozin. Treating with sliding scale insulin with meals for now, adjust as needed. ? Hypothyroidism: Continue home Synthroid. DVT prophylaxis: Heparin subcu CODE STATUS: Full code, verified Expected disposition: Likely SNF, TBD Total clinical time spent by myself addressing the patient's medical issues, reviewing all the data, and collaborating with patient's care team: 35 minutes. Charges/Coding Visit Charges Inpatient E&M: 96435 Subs Hosp L2 03/16/25 1106 Cosigner Signature (if applicable): CC: ~ Signed ADDENDUM by Dr. Seth Garnica DO on 03/16/25 at 1343 Addendum Patient evaluated by wound care this morning who noted dry gangrene of the rightgreat toe. Noted that wound did probe to bone. Podiatry consulted. Discussed with Dr. Coronado this afternoon and he suspects osteomyelitis of the right greattoe. Will start broad-spectrum antibiotics and await wound cultures. Vascular studies ordered by podiatry and if they ensure good healing potential, plan willbe for right great toe amputation sometime next week. 03/16/25 1343 Cosigner Signature (if applicable): cc: ~* Signed [facility]05-02-2025 Consult note [facility] Medical Records Department [address] [place] [address] Consultation 03/16/25 1332 MR#: [id number] Acct: [id number] Name: MISAEL MEDINA Rep #:[id number] : 1950 74 From: Lucas Coronado DPM PCP: Dr. Donal Castle MD Status:ADM IN Location: [place] [address]- 1 Assessment & Plan Assessment/Plan (1) Other acute osteomyelitis, right ankle and foot: PLAN: Exam performed. Vital signs stable. Patient seen in PACU recovering from tunnel catheter placement for dialysis purposes. Patient is ESRD with creatinine of 5.96, BUN 96. Patient has no leukocytosis or acute systemic signs of infection. Locally patient has clinical evidence of osteomyelitis to the right distal phalanx of the hallux. Radiographs were ordered, arterial studies were ordered. Discussed with patient she will likely require partial versus complete amputation of right hallux. Will await arterial studies and x-ray results to determine definitive amputation level and blood flow status to ensure adequate healing potential prior to procedure as patient is medically stable at this time. Will follow-up with patient tomorrow. 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 Patient was seen in PACU. Patient [place] constitutional symptoms. Patient did not realize she had a right hallux ulceration. Patient denies any pain and has no feeling to bilateral feet. Patient denies leg cramping. Patient has no other complaints. [facility] Medical History Congestive heart failure Hypothyroidism Osteoporosis Morbid obesity with BMI of 45.0-49.9, adult Wears glasses Post-menopausal Thyroid disease Diabetes Uses wheelchair Ambulates with cane Arthritis High cholesterol Back pain TIA (transient ischemic attack) Dietary restriction Non-smoker History of pain when walking History of transesophageal echocardiography (DESTIN) Cardiology follow-up encounter Hypertension Hypertension Diabetes Home Medications ?Medication ?Instructions ?Recorded ?Last Taken ?Type atorvastatin 10 mg tablet 10 mg PO QHS cholesterol 03/12/25 History levothyroxine 100 mcg tablet 100 mcg PO DAILY thyroid 08/31/22 03/13/25 History (Synthroid) aspirin 81 mg chewable tablet 81 mg PO DAILYCM 90 days #90 tabs 10/21/24 03/13/25 Rx carvedilol 6.25 mg tablet (Coreg) 6.25 mg PO BID #60 t abs 12/01/24 03/13/25 Rx dapagliflozin propanediol 10 mg 10 mg PO QDAY #30 tabs 03/12/25 Unknown Rx tablet (Farxiga) furosemide 40 mg tablet 40 mg PO QAM #30 tabs 03/13/25 Rx metformin 500 mg tablet 500 mg PO BID 03/12/2503/13 History Allergy/AdvReac Type Severity Reaction Status Date / Time No Known Allergies Allergy Verified 03/13/25 13:58 Family History Mother Hypertension Father Heart disease Surgical History Hx of colonoscopy Hx of cholecystectomy H/O: hysterectomy Social History household members: spouse Smoking Status: Never smoker alcohol intake: never substance use type: does not use caffeine: No ROS Constitutional Constitutional: Denies systems reviewed and no addt'l complaints, except as documented, chills or daytime sleepiness Eyes Eyes: Denies acute decrease in peripheral vision, blindness or change in vision ENT HEENT: Denies change in voice, epistaxis or facial pain Cardiovascular Cardiovascular: Denies abdominal edema, abdominal pain or chest pain at rest Respiratory/Chest Respiratory/Chest: Denies change in phlegm color, chest congestion or dyspnea Gastrointestinal Gastrointestinal: Denies belching, bloating or constipation Genitourinary Genitourinary: Denies anuria, burning urination or difficulty with ejaculations Musculoskeletal Musculoskeletal: Denies atrophy, back pain or limited range of motion Integumentary Integumentary: Denies bleeding lesions, change in hair or jaundice Physical Exam Narrative Vascular: Dorsalis pedis posterior tibial pulses palpable 2/4 bilateral lower extremities. Atrophicskin changes with thinning, shiny, taut, absent digital hair growth. Neurologic: Light touch and protective sensation absent to bilateral feet. Dermatologic: Full-thickness ulceration distal tuft of right hallux extending down to the level of distal phalanx. There is noted to be purulent drainage from the wound with periwound hyperkeratosis erythema edema and warmth. No evidence of crepitus or fluctuance when palpating the wound or periwound areas. Swelling inflammation appears limited to the right great toe. There is a partial-thicknessulceration to the dorsal aspect of the left second toe. Stable granular base no acute signs of infection. Musculoskeletal: Hallux limitus right foot contributing to wound formation, hammertoe deformity left second toe. Muscular strength for bilateral lower extremity compartments. Lab / Micro Data 03/16/25 04:04 03/16/25 04:04 Labs: Laboratory Results - last 24 hr 03/13/25 18:33: Hep Bs Antigen Nonreactive 03/15/25 10:05: Double Strand DNA Ab <1 03/15/25 15:10: Potassium 5.8 H 03/15/25 16:39: POC Glucose 149 H 03/15/25 21:36: POC Glucose 176 H 03/16/25 04:04: WBC 8.1, RBC 4.07 L, Hgb 10.4 L, Hct 35.6 L, MCV 87.5, MCH 25.6 L, MCHC 29.2 L, RDWStd Deviation 55.1 H, RDW Coeff of Leif 17.5 H, Plt Count 187, MPV 9.3, Immature Gran % (Auto) 0.400, Neut % (Auto) 74.3 H, Lymph % (Auto)13.5 L, Bolivar % (Auto) 9.3, Eos % (Auto) 2.3, Baso % (Auto) 0.2, Absolute Neuts (auto) 6.0, Absolute Lymphs (auto) 1.10, Nucleated RBC % 0.7, Sodium 137, Potassium5.6 H, Chloride 108, Carbon Dioxide 16.4 L, Anion Gap 13, BUN 96 H, Creatinine 5.96 H, Estim Creat Clear Calc 9.88 L*, Est GFR (MDRD) Non-Af 7 L, BUN/Creatinine Ratio 16.2, Glucose 138 H, Hemoglobin A1c 7.3 H, Calcium 8.2 03/16/25 06:19: POC Glucose 130 H 03/16/25 09:25: S.aureus Protein A PCR NEGATIVE, MRSA (PCR) Negative Micro: Microbiology 03/16/25 09:25 Wound - Toe Gram Stain - Final 03/14/25 18:00 Urine Catheter - Catheter Urine Culture - Preliminary Culture exhibits no growth. 03/16/25 1337 Cosigner Signature (if applicable): CC: Dr. Donal Castle MD~ Signed [facility]05-02-20[facility] Consult [facility] Medical Records Department [address] [place] [address] Anesthesia Postop Eval II 03/16/25 1301 MR#: [id number] Acct: [id number] Name: MISAEL MEDINA Rep #:[id number] : 1950 74 From: Tyler Juan MD PCP: Dr. Donal Castle MD Status:ADM IN Y Race: C Location: [place] [address] 8-1 Anesthesia Postop Eval I Sum Postop Eval Completion status Anesthesia document: Postop Eval 1 completed: Yes Anesthesia Postop Eval I Summary Anesthesia Postop Eval I Summary: Anesthesia Postop Eval I: Assessment Summary Airway patent Yes 03/16/25 12:51 DIRECTOR OF [email or web address] Spontaneous unlabored Yes 03/16/25 12:51 DIRECTOR OF [email or web address].TNES respirations Mental status nausea No 03/16/25 12:51 DIRECTOR OF [email or web address].TNES Vomiting No 03/16/25 12:51 DIRECTOR OF [email or web address].TNES Anesthesia Postop Eval I: Fluid Summary Crystalloid volume administer 300 03/16/25 12:51 DIRECTOR OF [email or web address].TNES (ml) Colloids volume administered ( ml) Blood Product volume administered (ml) Total IV fluid infused 300 03/16/25 12:51 DIRECTOR OF [email or web address].TNES Anesthesia Postop Eval I: Summary Notes Anesthesia Complication No 03/16/25 12:51 DIRECTOR OF [email or web address].TNES Anesthesia Complication Comment: Post-operative progress note Anesthesia: Postop Eval II Evaluation Mental status: Awake Pain Level: 0 nausea: No Vomiting: No 03/16/25 1301 > Date _ Tyler Juan MD Cosigner Signature: Date CC: ~ Signed [facility]05-02-2025 Consult note [facility] Medical Records Department [address] [place] [address] Anesthesia Postop Eval I 03/16/25 125 MR#: [id number] Acct: [id number] Name: MISAEL MEDINA Rep #:[id number] : 1950 74 From: Santiago ROSAS PCP: Dr. Donal Castle MD Status:ADM IN Y Race: C Location: [place] [address] Anesthesia: Postop Eval I Current Vital Signs Temperature: 96.8 F Pulse Rate: 68 Blood Pressure: 121/53 Respiratory Rate: 18 Pulse Ox: 94 Assessment Airway patent: Yes Spontaneous unlabored respirations: Yes nausea: No Vomiting: No Anesthesia Complication: No Fluid Hydration Crystalloid volume administer (ml): 300 Total IV fluid infused: 300 Progress Note Anesthesia document: Postop Eval 1 completed: Yes 03/16/251250 DIRECTOR OF ATHLETICS> Date _ Santiago Christianson DIRECTOR OF ATHLETICS Cosigner Signature: Date CC: ~ Signed [facility]05-02-2025 Consult note [facility] Note Date/Time March 16, 2025 10:22a m [facility] Medical Records Department [address] [place] [address] Pre-Anesthesia Evaluation 03/16/25 1021 MR#: [id number] Acct: [id number] Name: MISAEL MEDINA Rep #:[id number] : 1950 74 From: Tyler Juan MD PCP: Dr. Donal Castle MD Status:ADM IN Y Race: C Location: [place] [address] ASA Classification* ASA Classification ASA Classification: 3 Assessment & Plan Anesthesia* Anesthesia Assessment Anesthesia Assessment: Discussed sedation and/or anesthesia options, risks, benefits, and alternatives with patient/parents/legal guardian/POA. Questions invited. The patient/parents/legal guardian/POA seems to understand and agrees to proceedwith anesthesia plan. Reviewed the physical assessment, medical history, allergy history and patient home medications list prior to surgery/procedure/anesthetic and documented any changes. Performed airway and anesthesia risk assessments. Anesthesia Type Anesthesia Type: MAC Anesthesia Focused Assessment* Temperature: 97.6 F Pulse Rate: 71 Blood Pressure: 135/62 Respiratory Rate: 20 Pulse Ox: 92 Oxygen Flow Rate (L/min): 2 Airway Assessment Mouth opens: >3 cm Mallampati Score: II Focused Labs Anesthesia Preop lab: CBC WBC 8.1 K/mm3 (4.4-11.0) 03/16/25 04:04 03/16/25 RBC 4.07 M/mm3 (4.2-5.4) L 03/16/25 04:04 03/16/25 Hgb 10.4 g/dL (12.0-15.0) L 03/16/25 04:04 5 Hct 35.6 % (37-47) L 03/16/25 04:04 03/16/25 Plt Count 187 K/mm3 (150-450) 03/16/25 04:04 03/16/25 CHEMISTRY Potassium 5.6 mmol/L (3.3-5.1) H 03/16/25 04:04 03/16/25 Sodium 137 mmol/L (133-145) 03/16/25 04:04 03/16/25 Magnesium 2.6 mg/dL (1.5-2.2) H 03/13/25 15:11 03/13/25 Phosphorus 5.5 mg/dL (2.7-4.5) H 03/13/25 15:11 03/13/25 BUN 96 mg/dL (4-19) H 03/16/25 04:04 03/16/25 Creatinine 5.96 mg/dL (0.70-1.20) H 03/16/25 04:04 Glucose 138 mg/dL (70-99) H 03/16/25 04:04 03/16/25 POC Glucose 130 mg/dL (74-106) H 03/16/25 06:19 03/16/25 TSH 0.224 uIU/mL (0.358-3.740) L 10/18/24 05:35 COAG PT 15.5 SECONDS (11.7-14.9) H 03/15/25 10:05 0512/09 Pre-Assessment Diagnosis/Proposed Procedure Planned Operative Procedure(s): insertion hemodialysis catheter Anesthesia History 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 When Was Last Pacemaker Check QUESTION #4 FULL TEXT: You/Your Family Experience fever (hyperthermia) with Anesthesia Last Oral Intake Last Oral intake: Last Oral Intake NPO since 00:01 03/16/25 08:00 Meds taken in AM with sips of Yes 03/16/25 08:00 water? Meds patient instructed to coreg 03/16/25 08:00 take am of surgery PONV PONV - auto inspection specialist: PONV - auto inspection specialist Female HX of Motion Sickness HX of N/V After Surgery Non-Smoker Duration of Surgery greater than 60 minutes Number of Risk Factors PONV Score Height & Weight Height & Weight: Anesthesia: Height & Weight Height 4 ft 11.84 in 03/16/25 08:00 Weight: 121.8 kg 03/16/25 08:00 Body Mass Index (BMI) 52.7 03/16/25 08:00 Respiratory Assessment Respiratory Assessment - auto inspection specialist: Respiratory Tract Infection Hx - auto inspection specialist Hx Respiratory Tract Infection No 03/16/25 08:00 STOP Sleep Apnea STOP Sleep Apnea - auto inspection specialist: STOP Sleep Apnea - auto inspection specialist Hx Hypertension Yes 03/14/25 14:42 Hx Sleep Apnea No 03/13/25 19:56 CPAP BIPAP Do you snore loudly (louder No 03/13/25 19:56 than talking or can be heard Do you often feel tired/ No 03/13/25 19:56 fatigued/ sleepy during daytime? Has anyone observed you stop No 03/13/25 19:56 breathing during sleep? STOP Results Negative 03/13/25 19:56 QUESTION #5 FULL TEXT : Do you snore loudly (louder than talking or can be heard through closed doors)? Tobacco Use History Tobacco Use History - auto inspection specialist: Tobacco Use History - auto inspection specialist Tobacco Use Smoking Status Never smoker 03/13/25 19:56 Hx Tobacco Use No 03/13/25 19:56 Years Smoking Packs Smoked per Day Smoking Cessation Date was within the last 15 years Hx Smoking Cessation Date Hx Smoking Cessation Counseling Hematologic Medial History Hematologic Hx - auto inspection specialist: Hematologic Medical Hx - cook 3 pastry Hx of Blood Transfusion No 03/13/25 19:56 Hx of Transfusion in last 3 No 03/13/25 19:56 Months Date of Last Transfusion (if within last 3 months) Ever experience any problems No 03/13/25 19:56 with transfusion(s)? Specify any problems Hx of Preganancy in last 3 No 03/13/25 19:56 Months Nurse Filling Out Transfusion RWALKER 03/13/25 19:56 & Questions: Date: 03/13/25 03/13/25 19:56 Time: 20:05 03/13/25 19:56 Patient unable to answer at this time (ie. confused, unrespo /Reproduction History /Reproductive History - auto inspection specialist: /Reproductive Hx- auto inspection specialist Hx Now No 03/16/25 08:00 Gestational Age (in weeks): EDC: Hx Hx Para Hx Section SAB No 03/16/25 08:00 Active Medications Active Medications: Current Medications Generic Name Dose Route Start Last Admin Trade Name Freq PRN Reason Stop Dose Admin Aspirin 81 mg 03/14/25 08:00 03/16/25 07:46 Aspirin 81 Mg Tab.Chew PO Not Given BREAKFAST YOLI Atorvastatin Calcium 10 mg 03/13/25 22:00 03/15/25 21:37 Atorvastatin Calcium 10 Mg Tablet PO 10 mg QHS YOLI Administration Carvedilol 6.25 mg 03/14/25 08:00 03/16/25 08:36 Carvedilol 6.25 Mg Tablet PO 6.25 mg BIDCM YOLI Administration Protocol Hemodialysis Solution 6 bag 03/15/25 10:45 03/15/25 13:33 Pureflow B 2k Dialysis Soln 1 Bag PF 03/16/25 12:39 Not Given UD YOLI Protocol Heparin Sodium (Porcine) 1,000 - 3,000 units 03/15/25 10:37 Heparin 10,000 Units/10 Ml Vial IV 03/16/25 12:37 X1 PRN HD catheter closing Heparin Sodium (Porcine) 5,000 unit 03/15/25 22:00 03/16/25 07:46 Heparin Injection (Vial) 5,000 Unit/Ml Vial SC Not Given BID YOLI Ceftriaxone Sodium 1 gm in 50 mls @ 100 mls/hr 03/14/25 22:00 03/15/25 22:08 Rocephin IV Infused Q24@2200 YOLI Infusion Sodium Chloride 100 mls @ 15 mls/hr 03/14/25 09:02 IV .Q6H40M PRN Saline Flush Sodium Chloride 100 mls @ 15 mls/hr 03/14/25 09:02 IV .Q6H40M PRN Additional IVPB Infusion Cefazolin Sodium 3 gm/ Sodium 115 mls @ 150 mls/hr 03/16/25 11:00 Chloride IV 03/16/25 11:45 X1 ONE Sodium Chloride 500 mls @ 0 mls/hr 03/16/25 10:15 03/16/25 10:07 IV 15 mls/hr .Q0M YOLI Administration KVO Insulin Human Lispro 0 unit 03/14/25 07:00 03/16/25 06:19 Insulin Lispro 100 Unit/Ml Insuln.Pen SC Not Given ACHS [facility] Protocol Levothyroxine Sodium 100 mcg 03/14/25 06:00 03/16/25 06:20 Levothyroxine 100 Mcg Tablet PO 100 mcg DAILY@0600 YOLI Administration Nystatin 1 applic 03/13/25 22:00 03/16/25 08:35 Nystatin Powder 15gm Bottle TOPICAL 1 applic BID YOLI Administration Protocol Sodium Chloride 10 - 40 ml 03/14/25 09:02 03/15/25 21:40 0.9% Saline Lock 10 Ml Syringe IV 10 ml UD PRN Administration SALINE FLUSH Sodium Chloride 1,000 ml 03/15/25 10:40 03/15/25 13:32 0.9% Normal Saline 1,000 Ml Iv.Soln. OPERA.SITE 03/16/25 12:37 Not Given X1 YOLI Sodium Chloride 200 ml 03/15/25 10:37 0.9% Normal Saline 1,000 Ml Iv.Soln. IV 03/16/25 12:37 X1 PRN to maintain SBP >90mmHg during Dialysis [facility] Medical History Congestive heart failure Hypothyroidism Osteoporosis Morbid obesity with BMI of 45.0-49.9, adult Wears glasses Post-menopausal Thyroid disease Diabetes Uses wheelchair Ambulates with cane Arthritis High cholesterol Back pain TIA (transient ischemic attack) Dietary restriction Non-smoker History of pain when walking History of transesophageal echocardiography (DESTIN) Cardiology follow-up encounter Hypertension Hypertension Diabetes Home Medications ?Medication ?Instructions ?Recorded ?Last Taken ?Type atorvastatin 10 mg tablet 10 mg PO QHS cholesterol 03/12/25 History levothyroxine 100 mcg tablet 100 mcg PO DAILY thyroid 08/31/22 03/13/25 History (Synthroid) aspirin 81 mg chewable tablet 81 mg PO DAILYCM 90 days #90 tabs 10/21/24 03/13/25 Rx carvedilol 6.25 mg tablet (Coreg) 6.25 mg PO BID #60 t abs 12/01/24 03/13/25 Rx dapagliflozin propanediol 10 mg 10 mg PO QDAY #30 tabs 03/12/25 Unknown Rx tablet (Farxiga) furosemide 40 mg tablet 40 mg PO QAM #30 tabs 03/13/25 Rx metformin 500 mg tablet 500 mg PO BID 03/12/2503/13 History Allergy/AdvReac Type Severity Reaction Status Date / Time No Known Allergies Allergy Verified 03/13/25 13:58 Family History Mother Hypertension Father Heart disease Surgical History Hx of colonoscopy Hx of cholecystectomy H/O: hysterectomy Social History household members: spouse Smoking Status: Never smoker alcohol intake: never substance use type: does not use caffeine: No Review of Systems (Anesthesia) ROS Narrative System reviewed and no additional complaints, except as documented. 03/16/25 1022 <Electronically signed by Tyler Juan MD > Date _ Tyler Juan MD Cosigner Signature: Date CC: ~ Signed [facility] Work Phone: 1(661) 187-463205-02-2025 Consult note [facility] Medical Records Department [address] [place] [id number] Pre-Anesthesia Evaluation 03/16/25 1021 MR#: [id number] Acct: [id number] Name: MISAEL MEDINA Renée Rep #:[id number] : 1950 74 From: Tyler Juan MD PCP: Dr. Donal Castle MD Status:ADM IN Y Race: C Location: [place] [address] ASA Classification* ASA Classification ASA Classification: 3 Assessment & Plan Anesthesia* Anesthesia Assessment Anesthesia Assessment: Discussed sedation and/or anesthesia options, risks, benefits, and alternatives with patient/parents/legal guardian/POA. Questions invited. The patient/parents/legal guardian/POA seems to understand and agrees to proceedwith anesthesia plan. Reviewed the physical assessment, medical history, allergy history and patient home medications list prior to surgery/procedure/anesthetic and documented any changes. Performed airway and anesthesia risk assessments. Anesthesia Type Anesthesia Type: MAC Anesthesia Focused Assessment* Temperature: 97.6 F Pulse Rate: 71 Blood Pressure: 135/62 Respiratory Rate: 20 Pulse Ox: 92 Oxygen Flow Rate (L/min): 2 Airway Assessment Mouth opens: >3 cm Mallampati Score: II Focused Labs Anesthesia Preop lab: CBC WBC 8.1 K/mm3 (4.4-11.0) 03/16/25 04:04 03/16/25 RBC 4.07 M/mm3 (4.2-5.4) L 03/16/25 04:04 03/16/25 Hgb 10.4 g/dL (12.0-15.0) L 03/16/25 04:04 5 Hct 35.6 % (37-47) L 03/16/25 04:04 03/16/25 Plt Count 187 K/mm3 (150-450) 03/16/25 04:04 03/16/25 CHEMISTRY Potassium 5.6 mmol/L (3.3-5.1) H 03/16/25 04:04 03/16/25 Sodium 137 mmol/L (133-145) 03/16/25 04:04 03/16/25 Magnesium 2.6 mg/dL (1.5-2.2) H 03/13/25 15:11 03/13/25 Phosphorus 5.5 mg/dL (2.7-4.5) H 03/13/25 15:11 03/13/25 BUN 96 mg/dL (4-19) H 03/16/25 04:04 03/16/25 Creatinine 5.96 mg/dL (0.70-1.20) H 03/16/25 04:04 Glucose 138 mg/dL (70-99) H 03/16/25 04:04 03/16/25 POC Glucose 130 mg/dL (74-106) H 03/16/25 06:19 03/16/25 TSH 0.224 uIU/mL (0.358-3.740) L 10/18/24 05:35 COAG PT 15.5 SECONDS (11.7-14.9) H 03/15/25 10:05 0512/09 Pre-Assessment Diagnosis/Proposed Procedure Planned Operative Procedure(s): insertion hemodialysis catheter Anesthesia History 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 When Was Last Pacemaker Check QUESTION #4 FULL TEXT: You/Your Family Experience fever (hyperthermia) with Anesthesia Last Oral Intake Last Oral intake: Last Oral Intake NPO since 00:01 03/16/25 08:00 Meds taken in AM with sips of Yes 03/16/25 08:00 water? Meds patient instructed to coreg 03/16/25 08:00 take am of surgery PONV PONV - auto inspection specialist: PONV - auto inspection specialist Female HX of Motion Sickness HX of N/V After Surgery Non-Smoker Duration of Surgery greater than 60 minutes Number of Risk Factors PONV Score Height & Weight Height & Weight: Anesthesia: Height & Weight Height 4 ft 11.84 in 03/16/25 08:00 Weight: 121.8 kg 03/16/25 08:00 Body Mass Index (BMI) 52.7 03/16/25 08:00 Respiratory Assessment Respiratory Assessment - auto inspection specialist: Respiratory Tract Infection Hx - auto inspection specialist Hx Respiratory Tract Infection No 03/16/25 08:00 STOP Sleep Apnea STOP Sleep Apnea - auto inspection specialist: STOP Sleep Apnea - auto inspection specialist Hx Hypertension Yes 03/14/25 14:42 Hx Sleep Apnea No 03/13/25 19:56 CPAP BIPAP Do you snore loudly (louder No 03/13/25 19:56 than talking or can be heard Do you often feel tired/ No 03/13/25 19:56 fatigued/ sleepy during daytime? Has anyone observed you stop No 03/13/25 19:56 breathing during sleep? STOP Results Negative 03/13/25 19:56 QUESTION #5 FULL TEXT : Do you snore loudly (louder than talking or can be heard through closeddoors)? Tobacco Use History Tobacco Use History - auto inspection specialist: Tobacco Use History - auto inspection specialist Tobacco Use Smoking Status Never smoker 03/13/25 19:56 Hx Tobacco Use No 03/13/25 19:56 Years Smoking Packs Smoked per Day Smoking Cessation Date was within the last 15 years Hx Smoking Cessation Date Hx Smoking Cessation Counseling Hematologic Medial History Hematologic Hx - auto inspection specialist: Hematologic Medical Hx - cook 3 pastry Hx of Blood Transfusion No 03/13/25 19:56 Hx of Transfusion in last 3 No 03/13/25 19:56 Months Date of Last Transfusion (if within last 3 months) Ever experience any problems No 03/13/25 19:56 with transfusion(s)? Specify any problems Hx of Preganancy in last 3 No 03/13/25 19:56 Months Nurse Filling Out Transfusion RWALKER 03/13/25 19:56 & Questions: Date: 03/13/25 03/13/25 19:56 Time: 20:05 03/13/25 19:56 Patient unable to answer at this time (ie. confused, unrespo /Reproduction History /Reproductive History - auto inspection specialist: /Reproductive Hx- auto inspection specialist Hx Now No 03/16/25 08:00 Gestational Age (in weeks): EDC: Hx Hx Para Hx Section SAB No 03/16/25 08:00 Active Medications Active Medications: Current Medications Generic Name Dose Route Start Last Admin Trade Name Freq PRN Reason Stop Dose Admin Aspirin 81 mg 03/14/25 08:00 03/16/25 07:46 Aspirin 81 Mg Tab.Chew PO Not Given BREAKFAST YOLI Atorvastatin Calcium 10 mg 03/13/25 22:00 03/15/25 21:37 Atorvastatin Calcium 10 Mg Tablet PO 10 mg QHS YOLI Administration Carvedilol 6.25 mg 03/14/25 08:00 03/16/25 08:36 Carvedilol 6.25 Mg Tablet PO 6.25 mg BIDCM YOLI Administration Protocol Hemodialysis Solution 6 bag 03/15/25 10:45 03/15/25 13:33 Pureflow B 2k Dialysis Soln 1 Bag PF 03/16/25 12:39 Not Given UD YOLI Protocol Heparin Sodium (Porcine) 1,000 - 3,000 units 03/15/25 10:37 Heparin 10,000 Units/10 Ml Vial IV 03/16/25 12:37 X1 PRN HD catheter closing Heparin Sodium (Porcine) 5,000 unit 03/15/25 22:00 03/16/25 07:46 Heparin Injection (Vial) 5,000 Unit/Ml Vial SC Not Given BID YOLI Ceftriaxone Sodium 1 gm in 50 mls @ 100 mls/hr 03/14/25 22:00 03/15/25 22:08 Rocephin IV Infused Q24@2200 YOLI Infusion Sodium Chloride 100 mls @ 15 mls/hr 03/14/25 09:02 IV .Q6H40M PRN Saline Flush Sodium Chloride 100 mls @ 15 mls/hr 03/14/25 09:02 IV .Q6H40M PRN Additional IVPB Infusion Cefazolin Sodium 3 gm/ Sodium 115 mls @ 150 mls/hr 03/16/25 11:00 Chloride IV 03/16/25 11:45 X1 ONE Sodium Chloride 500 mls @ 0 mls/hr 03/16/25 10:15 03/16/25 10:07 IV 15 mls/hr .Q0M YOLI Administration KVO Insulin Human Lispro 0 unit 03/14/25 07:00 03/16/25 06:19 Insulin Lispro 100 Unit/Ml Insuln.Pen SC Not Given ACHS YOLI Protocol Levothyroxine Sodium 100 mcg 03/14/25 06:00 03/16/25 06:20 Levothyroxine 100 Mcg Tablet PO 100 mcg DAILY@0600 YOLI Administration Nystatin 1 applic 03/13/25 22:00 03/16/25 08:35 Nystatin Powder 15gm Bottle TOPICAL 1 applic BID YOLI Administration Protocol Sodium Chloride 10 - 40 ml 03/14/25 09:02 03/15/25 21:40 0.9% Saline Lock 10 Ml Syringe IV 10 ml UD PRN Administration SALINE FLUSH Sodium Chloride 1,000 ml 03/15/25 10:40 03/15/25 13:32 0.9% Normal Saline 1,000 Ml Iv.Soln. OPERA.SITE 03/16/25 12:37 Not Given X1 YOLI Sodium Chloride 200 ml 03/15/25 10:37 0.9% Normal Saline 1,000 Ml Iv.Soln. IV 03/16/25 12:37 X1 PRN to maintain SBP >90mmHg during Dialysis [facility] Medical History Congestive heart failure Hypothyroidism Osteoporosis Morbid obesity with BMI of 45.0-49.9, adult Wears glasses Post-menopausal Thyroid disease Diabetes Uses wheelchair Ambulates with cane Arthritis High cholesterol Back pain TIA (transient ischemic attack) Dietary restriction Non-smoker History of pain when walking History of transesophageal echocardiography (DESTIN) Cardiology follow-up encounter Hypertension Hypertension Diabetes Home Medications ?Medication ?Instructions ?Recorded ?Last Taken ?Type atorvastatin 10 mg tablet 10 mg PO QHS cholesterol 03/12/25 History levothyroxine 100 mcg tablet 100 mcg PO DAILY thyroid 08/31/22 03/13/25 History (Synthroid) aspirin 81 mg chewable tablet 81 mg PO DAILYCM 90 days #90 tabs 10/21/24 03/13/25 Rx carvedilol 6.25 mg tablet (Coreg) 6.25 mg PO BID #60 t abs 12/01/24 03/13/25 Rx dapagliflozin propanediol 10 mg 10 mg PO QDAY #30 tabs 03/12/25 Unknown Rx tablet (Farxiga) furosemide 40 mg tablet 40 mg PO QAM #30 tabs 03/13/25 Rx metformin 500 mg tablet 500 mg PO BID 03/12/2503/13 History Allergy/AdvReac Type Severity Reaction Status Date / Time No Known Allergies Allergy Verified 03/13/25 13:58 Family History Mother Hypertension Father Heart disease Surgical History Hx of colonoscopy Hx of cholecystectomy H/O: hysterectomy Social History household members: spouse Smoking Status: Never smoker alcohol intake: never substance use type: does not use caffeine: No Review of Systems (Anesthesia) ROS Narrative System reviewed and no additional complaints, except as documented. 03/16/25 1022 > Date _ Tyler Juan MD Cosigner Signature: Date CC: ~ Signed [facility]05-01-2025 Progress note Author [facility] Note Date/Time March 15, 2025 12:28p [facility] Medical Records Department [address] [place] [address] Progress Note - Hospitalist 03/15/25 1024 MR#: [id number] Acct: [id number] Name: MISAEL MEDINA Rep #:[id number] : 1950 74 From: Seth mai DO PCP: Dr. Donal Castle MD Status:ADM IN Location: [place] [address] Reason for Visit Reason for Visit: Diagnoses Hyperkalemia (03/13/25) Essential (primary) hypertension (03/13/25) Pulmonary hypertension, unspecified (03/13/25) Nonrheumatic aortic (valve) stenosis (03/13/25) Acute on chronic systolic (congestive) heart failure (03/13/25) Acute kidney failure, unspecified (03/13/25) Chronic kidney disease, unspecified (03/13/25) Subjective Subjective Saw patient at bedside this morning. Patient was sitting back comfortably in bedside chair and in no acute distress. She remained fatigued appearing and wasanswering most questions with short appropriate responses but did have some confusion with questions as well, similar to yesterday. She denied any acute pain or discomfort. She did state that she generally feels fatigued and off but would not elaborate on that further. She was agreeable to having dialysis catheter placed tomorrow. No other new concerns today. Objective Data Objective Data Vital Signs: Vital Signs Temp Pulse Resp BP Pulse Ox O2 Del Method O2 Flow Rate 97.0 F L 72 20 H 119/57 L 96 Nasal Cannula 2 03/15/25 08:50 03/15/25 08:50 03/15/25 08:50 03/15/25 08:50 03/15/25 08:50 03/15/25 08:50 03/15/25 08:50 Oxygen Flow Rate (L/min) 2 Oxygen Delivery Method Nasal Cannula Weight: 119.4 kg Body Mass Index (BMI) 51.4 Intake & Output: Intake and Output for Last 24 Hours 03/13/25 03/14/25 03/15/25 23:59 23:59 23:59 Intake Total 325.33 / 325.33 300 / 300 Output Total 150 / 150 50 / 50 Balance 325.33 / 325.33 150 / 150 -50 / -50 Lab / Micro Data 03/14/25 06:05 03/15/25 06:15 Labs: Laboratory Results - last 24 hr 03/14/25 11:38: POC Glucose 69 L 03/14/25 12:18: Sodium 143, Potassium 6.3 H*, Chloride 114 H, Carbon Dioxide TNP, Anion Gap UNABLE TO CALCULATE L, BUN 95 H, Creatinine 5.34 H, Estim Creat Clear Calc 10.79 L, Est GFR (MDRD) Non-Af 8 L, BUN/Creatinine Ratio 17.7, Glucose 71, Calcium 8.7, Total Creatine Kinase 26 03/14/25 12:41: POC Glucose 76 03/14/25 15:39: POC Glucose 137 H 03/14/25 18:00: Urine Creatinine 230.00 H 03/14/25 20:40: POC Glucose 119 H 03/15/25 06:15: Sodium 138, Potassium 6.2 H*, Chloride 111 H, Carbon Dioxide 14.7 L, Anion Gap 12, BUN 93 H, Creatinine 5.79 H, Estim Creat Clear Calc 10.10 L, Est GFR (MDRD) Non-Af 7 L, BUN/Creatinine Ratio 16.1, Glucose 106 H, Calcium 8.5 03/15/25 06:27: POC Glucose 99 Radiography Diagnostic Testing: Radiology Impression Renal Ultrasound 03/14/25 11:12 IMPRESSION: No hydronephrosis to suggest obstruction. Reading Location: [facility] Physical Exam Const alert and no apparent distress Constitutional Narrative: Elderly female, class III obesity, mildly fatigued appearing, alert and orientedto person and place but not time and some confusion with answering questions, otherwise sitting back comfortably in bed and in no acute distress. Stable. General Appearance: cooperative and comfortable HEENT normocephalic, head/scalp atraumatic, hearing grossly normal bilaterally, nasal mucous membranes and turbinates normal and moist oral mucous membranes Eyes PERRL, EOMs intact bilaterally and conjunctivae normal Neck full ROM Chest inspection of chest normal Resp normal respiratory effort and no use of accessory muscles Resp Narrative: Breathing comfortably on 2 L nasal cannula at rest. Decreased breath sounds in bilateral lung bases with mild crackles noted, no wheezing noted. Cardio regular rate, regular rhythm, no murmurs and peripheral pulses 2+ throughout GI normal to inspection, nondistended, normoactive bowel sounds, soft to palpation,non-tender and non-distended Back/Spine normal ROM Extremity Extremity Narrative: +2-3 lower extremity pitting edema noted. Stable. Skin no rashes or lesions noted Neuro moves all extremities and no focal motor deficits Assessment & Plan Assessment/Plan (1) Acute on chronic renal failure: (2) Hyperkalemia: PLAN: Plan Patient is a 74-year-old female who presented to [facility] ED on 03/13/2025 with fatigue and abnormal labs. 1. Severe JOSUE on CKD stage IIIb with hyperkalemia and metabolic acidosis ? Nephrology following. Creatinine 5.10, BUN 88, potassium 6.7 on admit. Baseline creatinine 1.6-1.7. Potassium worsened to 7.4 on morning of 03/14; no EKG changes noted and treated with calcium/insulin/dextrose/Kayexalate/sodium bicarbonate push with repeat potassium 6.3. Unclear etiology for JOSUE at this time. Renal ultrasound benign. Appears volume overloaded on exam but urine sodium low. Given 1 dose of IV Lasix with very minimal urine output. Repeat BMP on 03/15 with worsening creatinine, potassium stable at 6.2. Surgery consulted for tunneled HD catheter placement tomorrow. Will continue to temporize potassium as needed and plan to initiate dialysis tomorrow after catheter placement. 2. Acute on chronic HFrEF with hypoxia, hypertension, hyperlipidemia ? Cardiology following. Initially diagnosed with HFrEF with EF 40 to 45% in October. Was started on Coreg and lisinopril then but unfortunately repeat echo on 12/12 showed EF of 30% with moderate to severe global LV hypokinesis. Saw cardiology in the office on 03/12 and noted to have 17 pound weight gain. Labs drawn on 03/12 with findings as above as well as BNP greater than 70,000. Planning to initiate dialysis tomorrow as noted above. Appreciate cardiology and nephrology recommendations going forward. Okay to continue home aspirin, statin and Coreg. 3. Acute on chronic debility ? PT/OT/case management following. Patient with fairly poor therapy scores, will likely need SNF placement on discharge. 4. Concern for UTI ? UA with 500 leukocyte esterase, negative nitrates, 4+ bacteria, 50-100 WBCs. Urine culture pending. Treat empirically with IV ceftriaxone for now, follow-upurine culture. 5. Elevated troponin ? Cardiology following as above. Troponin trend 159 > 159 > 160 on admit. No new ischemic EKG changes noted. No chest pain noted. Suspected demand ischemiasecondary to HFrEF and JOSUE as noted above, no further cardiac workup needed. Chronic medical conditions: ? Class III obesity: BMI 50 on admit. Complicates hospital course, care and prognosis. ? Type 2 diabetes mellitus: Hold home metformin and dapagliflozin. Treating with sliding scale insulin with meals for now, adjust as needed. ? Hypothyroidism: Continue home Synthroid. DVT prophylaxis: Heparin subcu CODE STATUS: Full code, verified Expected disposition: Likely SNF, TBD Total clinical time spent by myself addressing the patient's medical issues, reviewing all the data, and collaborating with patient's care team: 35 minutes. Charges/Coding Visit Charges Inpatient E&M: 94798 Subs Hosp L2 03/15/25 1228 <Electronically signed by Seth Garnica DO> Cosigner Signature (if applicable): CC: ~ Signed [facility] Work Phone: 1(885) 634-616805-01-2025 Consult note Author Joao Francois [facility] Note Date/Time March 15, 2025 11:48a [facility] Medical Records Department [address] [place] [address] Consultation - Surgical 03/15/25 1056 MR#: [id number] Acct: [id number] Name: MISAEL MEDINA Rep #:[id number] : 1950 74 From: Joao Chinchilla PCP: Dr. Donal Castle MD Status:ADM IN Location: [place] [address] Assessment & Plan Assessment/Plan (1) Acute on chronic renal failure: PLAN: Patient is 74-year-old female admitted with acute on chronic renal failure. Unfortunately her renal function has not improved with conservative measures and she exhibits hyperkalemia and volume overload so renal replacement therapy is planned by nephrology. I was asked to consider catheter placement for patient this afternoon for initiation of dialysis to follow immediately. Unfortunately given the combination of patient's dietary status/or availability/prior commitments this is not feasible. Therefore, I have secured the next availability with the OR at 11:00 tomorrow morning. I have discussed plans with patient as well as with primary hospitalist service. Patient denies any further questions. She is to be consented for right possible left tunneled hemodialysis catheter insertion. She is to be kept n.p.o. past midnight in anticipation of this procedure. Joao Francois MD General Surgery Endocrine Surgery Pager: [facility] [address] [place] [address], [facility], [address] [place] [address] Office: [phone] HPI Consult Data Date of Consult: 03/15/25 HPI Narrative Reason for Consultation: Consideration of tunneled hemodialysis catheter insertion HPI Narrative: MISAEL MEDINA, is a 74 F who presented to [facility] on direction from cardiology after an outpatient visit with them 03/12/2025. Although patient presented for routine outpatient visit and felt that she was ather baseline her laboratory studies indicated otherwise. She demonstrated evidence of both congestive heart failure and acute renal failure. More specifically there were concerns for significant hyperkalemia and anasarca. Nephrology has been involved and is recommending renal replacement therapy. Patient denies any antecedent history of kidney problems. She states that she continues to urinate but finds some increased difficulty with this. Patient has no history of prior central line placement. [facility] Medical History Congestive heart failure Hypothyroidism Osteoporosis Morbid obesity with BMI of 45.0-49.9, adult Wears glasses Post-menopausal Thyroid disease Diabetes Uses wheelchair Ambulates with cane Arthritis High cholesterol Back pain TIA (transient ischemic attack) Dietary restriction Non-smoker History of pain when walking History of transesophageal echocardiography (DESTIN) Cardiology follow-up encounter Hypertension Hypertension Diabetes Home Medications ?Medication ?Instructions ?Recorded ?Last Taken ?Type atorvastatin 10 mg tablet 10 mg PO QHS cholesterol 03/12/25 History levothyroxine 100 mcg tablet 100 mcg PO DAILY thyroid 08/31/22 03/13/25 History (Synthroid) aspirin 81 mg chewable tablet 81 mg PO DAILYCM 90 days #90 tabs 10/21/24 03/13/25 Rx carvedilol 6.25 mg tablet (Coreg) 6.25 mg PO BID #60 t abs 12/01/24 03/13/25 Rx dapagliflozin propanediol 10 mg 10 mg PO QDAY #30 tabs 03/12/25 Unknown Rx tablet (Farxiga) furosemide 40 mg tablet 40 mg PO QAM #30 tabs 03/13/25 Rx metformin 500 mg tablet 500 mg PO BID 03/12/2503/13 History Allergy/AdvReac Type Severity Reaction Status Date / Time No Known Allergies Allergy Verified 03/13/25 13:58 Family History Mother Hypertension Father Heart disease Surgical History Hx of colonoscopy Hx of cholecystectomy H/O: hysterectomy Social History household members: spouse Smoking Status: Never smoker alcohol intake: never substance use type: does not use caffeine: No Physical Exam Const alert Nutritional Appearance: obese Chest Chest Narrative: No rashes, inflammatory changes, or signs of infection to bilateral upper chest/lower neck. Resp Resp Narrative: Mildly tachypneic with shallow inspiratory effort Lab / Micro Data 03/14/25 06:05 03/15/25 06:15 Labs: Laboratory Results - last 24 hr 03/14/25 11:38: POC Glucose 69 L 03/14/25 12:18: Sodium 143, Potassium 6.3 H*, Chloride 114 H, Carbon Dioxide TNP, Anion Gap UNABLE TO CALCULATE L, BUN 95 H, Creatinine 5.34 H, Estim Creat Clear Calc 10.79 L, Est GFR (MDRD) Non-Af 8 L, BUN/Creatinine Ratio 17.7, Glucose 71, Calcium 8.7, Total Creatine Kinase 26 03/14/25 12:41: POC Glucose 76 03/14/25 15:39: POC Glucose 137 H 03/14/25 18:00: Urine Creatinine 230.00 H 03/14/25 20:40: POC Glucose 119 H 03/15/25 06:15: Sodium 138, Potassium 6.2 H*, Chloride 111 H, Carbon Dioxide 14.7 L, Anion Gap 12, BUN 93 H, Creatinine 5.79 H, Estim Creat Clear Calc 10.10 L, Est GFR (MDRD) Non-Af 7 L, BUN/Creatinine Ratio 16.1, Glucose 106 H, Calcium 8.5 03/15/25 06:27: POC Glucose 99 03/15/25 10:05: PT 15.5 H, INR 1.2, APTT 28.0 Imaging Radiology Impression Renal Ultrasound 03/14/25 11:12 IMPRESSION: No hydronephrosis to suggest obstruction. Reading Location: [id number] Charges/Coding Visit Charges Inpatient E&M: 24934 Init Hosp L2 03/15/25 1148 <Electronically signed by Joao Francois MD> Cosigner Signature (if applicable): CC: Dr. Donal Castle MD~ Signed [facility] Work Phone: 1(761) 772-886105-01-2025 Progress note [facility] Medical Records Department [address] [place] [address] Progress Note - Hospitalist 03/15/25 1024 MR#: [id number] Acct: [id number] Name: MISAEL MEDINA Rep #:[id number] 22 : 1950 74 From: Seth mai DO PCP: Dr. Donal Castle MD Status:ADM IN Location: [place] [address]- Reason for Visit Reason for Visit: Diagnoses Hyperkalemia (03/13/25) Essential (primary) hypertension (03/13/25) Pulmonary hypertension, unspecified (03/13/25) Nonrheumatic aortic (valve) stenosis (03/13/25) Acute on chronic systolic (congestive) heart failure (03/13/25) Acute kidney failure, unspecified (03/13/25) Chronic kidney disease, unspecified (03/13/25) Subjective Subjective Saw patient at bedside this morning. Patient was sitting back comfortably in bedside chair and in no acute distress. She remained fatigued appearing and wasanswering most questions with short appropriate responses but did have some confusion with questions as well, similar to yesterday. She denied any acute pain or discomfort. She did state that she generally feels fatigued and off but would not elaborate on that further. She was agreeable to having dialysis catheter placed tomorrow. No othernew concerns today. Objective Data Objective Data Vital Signs: Vital Signs Temp Pulse Resp BP Pulse Ox O2 Del Method O2 Flow Rate 97.0 F L 72 20 H 119/57 L 96 Nasal Cannula 2 03/15/25 08:50 03/15/25 08:50 03/15/25 08:50 03/15/25 08:50 03/15/25 08:50 03/15/25 08:50 03/15/25 08:50 Oxygen Flow Rate (L/min) 2 Oxygen Delivery Method Nasal Cannula Weight: 119.4 kg Body Mass Index (BMI) 51.4 Intake & Output: Intake and Output for Last 24 Hours 03/13/25 03/14/25 03/15/25 23:59 23:59 23:59 Intake Total 325.33 / 325.33 300 / 300 Output Total 150 / 150 50 / 50 Balance 325.33 / 325.33 150 / 150 -50 / -50 Lab / Micro Data 03/14/25 06:05 03/15/25 06:15 Labs: Laboratory Results - last 24 hr 03/14/25 11:38: POC Glucose 69 L 03/14/25 12:18: Sodium 143, Potassium 6.3 H*, Chloride 114 H, Carbon Dioxide TNP, Anion Gap UNABLE TO CALCULATE L, BUN 95 H, Creatinine 5.34 H, Estim Creat Clear Calc 10.79 L, Est GFR (MDRD) Non-Af 8L, BUN/Creatinine Ratio 17.7, Glucose 71, Calcium 8.7, Total Creatine Kinase 26 03/14/25 12:41: POC Glucose 76 03/14/25 15:39: POC Glucose 137 H 03/14/25 18:00: Urine Creatinine 230.00 H 03/14/25 20:40: POC Glucose 119 H 03/15/25 06:15: Sodium 138, Potassium 6.2 H*, Chloride 111 H, Carbon Dioxide 14.7 L, Anion Gap 12, BUN 93 H, Creatinine 5.79 H, Estim Creat Clear Calc 10.10 L, Est GFR (MDRD) Non-Af 7 L, BUN/Creatinine Ratio 16.1, Glucose 106 H, Calcium 8.5 03/15/25 06:27: POC Glucose 99 Radiography Diagnostic Testing: Radiology Impression Renal Ultrasound 03/14/25 11:12 IMPRESSION: No hydronephrosis to suggest obstruction. Reading Location: [id number] Physical Exam Const alert and no apparent distress Constitutional Narrative: Elderly female, class III obesity, mildly fatigued appearing, alert and orientedto person and placebut not time and some confusion with answering questions, otherwise sitting back comfortably in bedand in no acute distress. Stable. General Appearance: cooperative and comfortable HEENT normocephalic, head/scalp atraumatic, hearing grossly normal bilaterally, nasal mucous membranes and turbinates normal and moist oral mucous membranes Eyes PERRL, EOMs intact bilaterally and conjunctivae normal Neck full ROM Chest inspection of chest normal Resp normal respiratory effort and no use of accessory muscles Resp Narrative: Breathing comfortably on 2 L nasal cannula at rest. Decreased breath sounds in bilateral lung baseswith mild crackles noted, no wheezing noted. Cardio regular rate, regular rhythm, no murmurs and peripheral pulses 2+ throughout GI normal to inspection, nondistended, normoactive bowel sounds, soft to palpation,non-tender and non-distended Back/Spine normal ROM Extremity Extremity Narrative: +2-3 lower extremity pitting edema noted. Stable. Skin no rashes or lesions noted Neuro moves all extremities and no focal motor deficits Assessment & Plan Assessment/Plan (1) Acute on chronic renal failure: (2) Hyperkalemia: PLAN: Plan Patient is a 74-year-old female who presented to [facility] ED on 03/13/2025 with fatigue and abnormal labs. 1. Severe JOSUE on CKD stage IIIb with hyperkalemia and metabolic acidosis ? Nephrology following. Creatinine 5.10, BUN 88, potassium 6.7 on admit. Baseline creatinine 1.6-1.7. Potassium worsened to 7.4 on morning of 03/14; no EKG changes noted and treated with calcium/insulin/dextrose/Kayexalate/sodium bicarbonate push with repeat potassium 6.3. Unclear etiology for JOSUE at this time. Renal ultrasound benign. Appears volume overloaded on exam but urine sodium low. Given 1 dose of IV Lasix with very minimal urine output. Repeat BMP on 03/15 with worsening creatinine, potassium stable at 6.2. Surgery consulted for tunneled HD catheter placement tomorrow. Will continue totemporize potassium as needed and plan to initiate dialysis tomorrow after catheter placement. 2. Acute on chronic HFrEF with hypoxia, hypertension, hyperlipidemia ? Cardiology following. Initially diagnosed with HFrEF with EF 40 to 45% in October. Was started on Coreg and lisinopril then but unfortunately repeat echo on 12/12 showed EF of 30% with moderate to severe global LV hypokinesis. Saw cardiology in the office on 03/12 and noted to have 17 pound weightgain. Labs drawn on 03/12 with findings as above as well as BNP greater than 70,000. Planning to initiate dialysis tomorrow as noted above. Appreciate cardiology and nephrology recommendations going forward. Okay to continue home aspirin, statin and Coreg. 3. Acute on chronic debility ? PT/OT/case management following. Patient with fairly poor therapy scores, will likely need SNF placement on discharge. 4. Concern for UTI ? UA with 500 leukocyte esterase, negative nitrates, 4+ bacteria, 50-100 WBCs. Urine culture pending. Treat empirically with IV ceftriaxone for now, follow- upurine culture. 5. Elevated troponin ? Cardiology following as above. Troponin trend 159 > 159 > 160 on admit. No new ischemic EKGchanges noted. No chest pain noted. Suspected demand ischemiasecondary to HFrEF and JOSUE as noted above, no further cardiac workup needed. Chronic medical conditions: ? Class III obesity: BMI 50 on admit. Complicates hospital course, care and prognosis. ? Type 2 diabetes mellitus: Hold home metformin and dapagliflozin. Treating with sliding scale insulin with meals for now, adjust as needed. ? Hypothyroidism: Continue home Synthroid. DVT prophylaxis: Heparin subcu CODE STATUS: Full code, verified Expected disposition: Likely SNF, TBD Total clinical time spent by myself addressing the patient's medical issues, reviewing all the data, and collaborating with patient's care team: 35 minutes. Charges/Coding Visit Charges Inpatient E&M: 56748 Subs Hosp L2 03/15/25 1228 Cosigner Signature (if applicable): CC: ~ Signed [facility]05-01-2025 Consult note [facility] Medical Records Department [address] [place] [address] Consultation - Surgical 03/15/25 1056 MR#: [id number] Acct: [id number] Name: MISAEL MEDINA Rep #:[id number] : 1950 74 From: Joao Chinchilla PCP: Dr. Donal Castle MD Status:ADM IN Location: [facility] [id number] Assessment & Plan Assessment/Plan (1) Acute on chronic renal failure: PLAN: Patient is 74-year-old female admitted with acute on chronic renal failure. Unfortunately herrenal function has not improved with conservative measures and she exhibits hyperkalemia and volumeoverload so renal replacement therapy is planned by nephrology. I was asked to consider catheter placement for patient this afternoon for initiation of dialysis to follow immediately. Unfortunately given the combination of patient's dietary status/or availability/prior commitments this is not feasible. Therefore, I have secured the next availability with the OR at 11:00 tomorrow morning. I have discussed plans with patient as well as with primary hospitalist service. Patient denies any further questions. She is to be consented for right possible left tunneled hemodialysis catheter insertion. She is to be kept n.p.o. past midnight in anticipation of this procedure. Joao Francois MD General Surgery Endocrine Surgery Pager: [facility] [address] [place] [address], [address] [place] [address] Office: [phone] HPI Consult Data Date of Consult: 03/15/25 HPI Narrative Reason for Consultation: Consideration of tunneled hemodialysis catheter insertion HPI Narrative: MISAEL MEDINA, is a 74 F who presented to [facility] on direction from cardiology after an outpatient visit with them 03/12/2025. Although patient presented for routine outpatient visit and felt that she was ather baseline her laboratory studies indicated otherwise. She demonstrated evidence of both congestive heart failure and acute renal failure. More specifically there were concerns for significant hyperkalemia and anasarca. Nephrology has been involved and is recommending renal replacement therapy. Patient denies any antecedent history of kidney problems. She states that she continues to urinate but finds some increased difficulty with this. Patient has no history of prior central line placement. [facility] Medical History Congestive heart failure Hypothyroidism Osteoporosis Morbid obesity with BMI of 45.0-49.9, adult Wears glasses Post-menopausal Thyroid disease Diabetes Uses wheelchair Ambulates with cane Arthritis High cholesterol Back pain TIA (transient ischemic attack) Dietary restriction Non-smoker History of pain when walking History of transesophageal echocardiography (DESTIN) Cardiology follow-up encounter Hypertension Hypertension Diabetes Home Medications ?Medication ?Instructions ?Recorded ?Last Taken ?Type atorvastatin 10 mg tablet 10 mg PO QHS cholesterol 03/12/25 History levothyroxine 100 mcg tablet 100 mcg PO DAILY thyroid 08/31/22 03/13/25 History (Synthroid) aspirin 81 mg chewable tablet 81 mg PO DAILYCM 90 days #90 tabs 10/21/24 03/13/25 Rx carvedilol 6.25 mg tablet (Coreg) 6.25 mg PO BID #60 t abs 12/01/24 03/13/25 Rx dapagliflozin propanediol 10 mg 10 mg PO QDAY #30 tabs 03/12/25 Unknown Rx tablet (Farxiga) furosemide 40 mg tablet 40 mg PO QAM #30 tabs 03/13/25 Rx metformin 500 mg tablet 500 mg PO BID 03/12/2503/13 History Allergy/AdvReac Type Severity Reaction Status Date / Time No Known Allergies Allergy Verified 03/13/25 13:58 Family History Mother Hypertension Father Heart disease Surgical History Hx of colonoscopy Hx of cholecystectomy H/O: hysterectomy Social History household members: spouse Smoking Status: Never smoker alcohol intake: never substance use type: does not use caffeine: No Physical Exam Const alert Nutritional Appearance: obese Chest Chest Narrative: No rashes, inflammatory changes, or signs of infection to bilateral upper chest/lower neck. Resp Resp Narrative: Mildly tachypneic with shallow inspiratory effort Lab / Micro Data 03/14/25 06:05 03/15/25 06:15 Labs: Laboratory Results - last 24 hr 03/14/25 11:38: POC Glucose 69 L 03/14/25 12:18: Sodium 143, Potassium 6.3 H*, Chloride 114 H, Carbon Dioxide TNP, Anion Gap UNABLE TO CALCULATE L, BUN 95 H, Creatinine 5.34 H, Estim Creat Clear Calc 10.79 L, Est GFR (MDRD) Non-Af 8L, BUN/Creatinine Ratio 17.7, Glucose 71, Calcium 8.7, Total Creatine Kinase 26 03/14/25 12:41: POC Glucose 76 03/14/25 15:39: POC Glucose 137 H 03/14/25 18:00: Urine Creatinine 230.00 H 03/14/25 20:40: POC Glucose 119 H 03/15/25 06:15: Sodium 138, Potassium 6.2 H*, Chloride 111 H, Carbon Dioxide 14.7 L, Anion Gap 12, BUN 93 H, Creatinine 5.79 H, Estim Creat Clear Calc 10.10 L, Est GFR (MDRD) Non-Af 7 L, BUN/Creatinine Ratio 16.1, Glucose 106 H, Calcium 8.5 03/15/25 06:27: POC Glucose 99 03/15/25 10:05: PT 15.5 H, INR 1.2, APTT 28.0 Imaging Radiology Impression Renal Ultrasound 03/14/25 11:12 IMPRESSION: No hydronephrosis to suggest obstruction. Reading Location: [id number] Charges/Coding Visit Charges Inpatient E&M: 51784 Init Hosp L2 03/15/25 1148 Cosigner Signature (if applicable): CC: Dr. Donal Castle MD~ Signed [facility]04-30-2025 Radiology Diagnostic study note [facility] Imaging Services [address] [place] [address] Kidney and Bladder MR#: [id number] Acct: [id number] Name: MISAEL MEDINA Rep #: [id number] : 1950 F 74 From: Jm Minaya MD PCP: Dr. Donal Castle MD Status: ADM IN Study:Kidney and Bladder Date of Exam: 0 03/14/25 Exam# [id number] Ordering Dr: Kurtis Grande MD PROCEDURE: KIDNEY AND BLADDER 03/14/2025 REASON FOR EXAM: JOSUE TECHNIQUE: Bilateral renal ultrasound. FINDINGS: Kidneys: Normal renal sizes, parenchymal thicknesses, and echotextures. Shunk: None Cysts or Masses: None Other: RIGHT Kidney Size: 10.3 x 5.3 x 5.7 Volume: mL Parenchymal Thickness: (>14mm is normal) Cortical Thickness (if discernible): 10 mm (>6mm is normal) LEFT Kidney Size: 10.0 x 5.6 x 5.5 Volume: mL Parenchymal Thickness: (>14mm is normal) Cortical Thickness (if discernible): 9 mm (>6mm is normal) US/Kidney and Bladder IMPRESSION: No hydronephrosis to suggest obstruction. Reading Location: [id number] CC: Dr. Donal Castle MD; Dr. Lorraine Grande MD ~ Deal Architect: Signed [facility]04-30-2025 Progress note Author Seth Garnica [facility] Note Date/Time March 14, 2025 3:0 3pm [facility] Medical Records Department [address] [place] [id number] Progress Note - Hospitalist 03/14/25 1128 MR#: [id number] Acct: [id number] Name: MISAEL MEDINA Rep #:[id number] : 1950 74 From: Seth Ly priscila DO PCP: Dr. Donal Castle MD Status:ADM IN Location: [place] [id number]- 1 Reason for Visit Reason for Visit: Diagnoses Essential (primary) hypertension (03/13/25) Pulmonary hypertension, unspecified (03/13/25) Nonrheumatic aortic (valve) stenosis (03/13/25) Acute on chronic systolic (congestive) heart failure (03/13/25) Acute kidney failure, unspecified (03/13/25) Chronic kidney disease, unspecified (03/13/25) Subjective Subjective Saw patient at bedside this morning. Patient was mildly fatigued appearing but otherwise sitting back comfortably in bed and in no acute distress. She was alert and oriented to person and place but not time and had some confusion when answering multiple questions. She denied any acute pain or discomfort currently. Denied any nausea. Denied any shortness of breath. No other new concerns morning. Objective Data Objective Data Vital Signs: Vital Signs Temp Pulse Resp BP Pulse Ox O2 Del Method O2 Flow Rate 97.4 F L 62 16 126/52 H 94 Nasal Cannula 2 03/14/25 08:18 03/14/25 08:18 03/14/25 08:18 03/14/25 08:18 03/14/25 08:18 03/14/25 09:08 03/14/25 08:18 Oxygen Flow Rate (L/min) 2 Oxygen Delivery Method Nasal Cannula Weight: 116.573 kg Body Mass Index (BMI) 50.1 Intake & Output: Intake and Output for Last 24 Hours 03/12/25 03/13/25 03/14/25 23:59 23:59 23:59 Intake Total 325.33 / 325.33 250 / 250 Balance 325.33 / 325.33 250 / 250 Lab / Micro Data 03/14/25 06:05 03/14/25 12:18 Labs: Laboratory Results - last 24 hr 03/13/25 15:11: WBC 7.7, RBC 4.33, Hgb 11.3 L, Hct 38.7, MCV 89.4, MCH 26.1 L, MCHC 29.2 L, RDW Std Deviation 57.1 H, RDW Coeff of Leif 17.4 H, Plt Count 241, MPV 9.4, Immature Gran % (Auto) 0.600, Neut % (Auto) 79.2 H, Lymph % (Auto) 11.5L, [place] % (Auto) 7.8, Eos % (Auto) 0.6, Baso % (Auto) 0.3, Absolute Neuts (auto)6.1, Absolute Lymphs (auto) 0.89, Nucleated RBC % 1.9, Sodium 141, Potassium 6.7H*, Chloride 114 H, Carbon Dioxide 16.6 L, Anion Gap 11, BUN 88 H, Creatinine 5.10 H, Estim Creat Clear Calc 11.41 L, Est GFR (MDRD) Non-Af 8 L, BUN/Creatinine Ratio 17.3, Glucose 138 H, Calcium 8.5, Phosphorus 5.5 H, Magnesium 2.6 H, Troponin T High Sens 159 H*, [place] II > [address] H 03/13/25 17:30: Troponin T Hi Sens 2 Hr 159 H*, Urine Color Yellow, Urine Clarity Cloudy, Urine pH 5.0, Ur Specific [place] 1.025, Urine Protein 100 H, Urine Glucose (UA) Normal, Urine Ketones Negative, Urine Occult Blood 150 H, Urine Nitrite Negative, Urine Bilirubin 1 H, Urine Urobilinogen Normal, Ur Leukocyte Esterase 500 H, Urine RBC 5-10 SEEN, Urine WBC 50-100 SEEN, Ur Squamous Epith Cells 10-25 SEEN, Ur Transition Epith Cell 0-5 SEEN, Urine Bacteria 4+, Urine Mucus 0 SEEN, Urine Osmolality 353, Ur Random Sodium < 20, Urine Potassium 20.8, Urine Chloride 24, Urine Urea Nitrogen 374 03/13/25 18:21: POC Glucose 234 H 03/13/25 18:33: PT 15.7 H, INR 1.2, APTT 29.4, Serum Osmolality 330 H 03/13/25 21:00: Troponin T Hi Sens 4Hr 160 H* 03/14/25 06:05: WBC 7.5, RBC 4.43, Hgb 11.5 L, Hct 40.1, MCV 90.5, MCH 26.0 L, MCHC 28.7 L, RDW Std Deviation 57.9 H, RDW Coeff of Leif 17.4 H, Plt Count 232, MPV 9.6, Immature Gran % (Auto) 0.700, Neut % (Auto) 76.2 H, Lymph % (Auto) 14.0L, [place] % (Auto) 7.7, Eos % (Auto) 1.1, Baso % (Auto) 0.3, Absolute Neuts (auto)5.7, Absolute Lymphs (auto) 1.05, Nucleated RBC % 1.7, Sodium 140, Potassium 7.4H*, Chloride 114 H, Carbon Dioxide 15.1 L, Anion Gap 11, BUN 92 H, Creatinine 5.38 H, Estim Creat Clear Calc 10.71 L, Est GFR (MDRD) Non-Af 8 L, BUN/Creatinine Ratio 17.1, Glucose 79, Calcium 8.9 03/14/25 06:15: POC Glucose 76 Radiography Diagnostic Testing: Radiology Impression Chest X-Ray 03/13/25 16:45 IMPRESSION: 1. Limited hypoinflated exam. Cardiomegaly with central vascular prominence and at least [id number] RIGHT pleural effusion. 2. RIGHT-sided airspace disease adjacent to the effusion may reflect compressiveatelectasis and/or pneumonia. Follow-up to radiographic resolution recommended. 3. Additional description as above. Reading Location: [facility] Physical Exam Const alert and no apparent distress Constitutional Narrative: Elderly female, class III obesity, mildly fatigued appearing, alert and orientedto person and place but not time and some confusion with answering questions, otherwise sitting back comfortably in bed and in no acute distress. General Appearance: cooperative and comfortable HEENT normocephalic, head/scalp atraumatic, hearing grossly normal bilaterally, nasal mucous membranes and turbinates normal and moist oral mucous membranes Eyes PERRL, EOMs intact bilaterally and conjunctivae normal Neck full ROM Chest inspection of chest normal Resp normal respiratory effort and no use of accessory muscles Resp Narrative: Breathing comfortably on 2 L nasal cannula at rest. Decreased breath sounds in bilateral lung bases with mild crackles noted, no wheezing noted. Cardio regular rate, regular rhythm, no murmurs and peripheral pulses 2+ throughout GI normal to inspection, nondistended, normoactive bowel sounds, soft to palpation,non-tender and non-distended Back/Spine normal ROM Extremity Extremity Narrative: +2-3 lower extremity pitting edema noted. Skin no rashes or lesions noted Neuro moves all extremities and no focal motor deficits Assessment & Plan Assessment/Plan (1) Acute on chronic renal failure: (2) Hyperkalemia: PLAN: Plan Patient is a 74-year-old female who presented to [facility] ED on 03/13/2025 with fatigue and abnormal labs. 1. Severe JOSUE on CKD stage IIIb with hyperkalemia and metabolic acidosis ? Nephrology following. Creatinine 5.10, BUN 88, potassium 6.7 on admit. Baseline creatinine 1.6-1.7. Potassium worsened to 7.4 on morning of 03/14; no EKG changes noted and treated with calcium/insulin/dextrose/Kayexalate/sodium bicarbonate push with repeat potassium 6.3. Unclear etiology for JOSUE at this time. Postvoid bladder scan was negative but renal ultrasound pending. Appearsvolume overloaded on exam but urine sodium low. Per nephrology, will treat withIV Lasix plus or minus bicarbonate as needed for now and monitor closely. Patient notably is making urine. Monitor BMP daily. No acute hemodialysis needs today but if not much improvement by tomorrow, suspected that she will need to be initiated on dialysis. 2. Acute on chronic HFrEF with hypoxia, hypertension, hyperlipidemia ? Cardiology following. Initially diagnosed with HFrEF with EF 40 to 45% in October. Was started on Coreg and lisinopril then but unfortunately repeat echo on 12/12 showed EF of 30% with moderate to severe global LV hypokinesis. Saw cardiology in the office on 03/12 and noted to have 17 pound weight gain. Labs drawn on 03/12 with findings as above as well as BNP greater than 70,000. Currently giving IV Lasix as needed per nephrology recommendation. Appreciate cardiology and nephrology recommendations going forward. Okay to continue home aspirin, statin and Coreg. 3. Acute on chronic debility ? PT/OT/case management consulted. 4. Concern for UTI ? UA with 500 leukocyte esterase, negative nitrates, 4+ bacteria, 50-100 WBCs. Urine culture pending. Treat empirically with IV ceftriaxone for now, follow-upurine culture. 5. Elevated troponin ? Cardiology following as above. Troponin trend 159 > 159 > 160 on admit. No new ischemic EKG changes noted. No chest pain noted. Suspected demand ischemiasecondary to HFrEF and JOSUE as noted above, no further cardiac workup needed. Chronic medical conditions: ? Class III obesity: BMI 50 on admit. Complicates hospital course, care and prognosis. ? Type 2 diabetes mellitus: Hold home metformin and dapagliflozin. Treating with sliding scale insulin with meals for now, adjust as needed. ? Hypothyroidism: Continue home Synthroid. DVT prophylaxis: Heparin subcu CODE STATUS: Full code, verified Expected disposition: TBD Total clinical time spent by myself addressing the patient's medical issues, reviewing all the data, and collaborating with patient's care team: 50 minutes. Charges/Coding Visit Charges Inpatient E&M: 08998 Subs Hosp L3 03/14/25 1503 <Electronically signed by Seth Garnica DO> Cosigner Signature (if applicable): CC: ~ Signed [facility] Work Phone: [phone]) 149-743004-30-2025 Consult note Author Lorraine Grande [facility] Note Date/Time March 14, 2025 2:[address] [facility] Medical Records Department [address] [place] [address] Consultation - Nephrology 03/14/25 1409 MR#: [id number] Acct: [id number] Name: MISAEL MEDINA Rep #:[id number] : 1950 74 From: Lorraine reyez MD PCP: Dr. Donal Castle MD Status:ADM IN Location: [place] [address]- 1 Assessment & Plan Assessment/Plan (1) Acute kidney injury superimposed on chronic kidney disease: PLAN: CKD stage IIIb at baseline, 1.7 last creatinine from December. Came with a creatinine of 4.7 or so, worse now. She says she is making urine. Discussed with nursing staff. She has voided once when she was having bowel movement earlier today. Postvoid bladder scan was negative will order a renal ultrasound Renal ultrasound with leukocytes, RBC, protein. Cultures pending Urine sodium less than 20 History of congestive heart failure. Chest x-ray is okay. Has moderate lower extremity edema which according to her is better than before. BNP significantlyhigh. Breathing looks comfortable right now Hyperkalemia. Potassium level 7.4 this morning. Discussed with hospitalist. No EKG changes. She has received insulin, dextrose, bicarbonate, Kayexalate. She did have a large bowel movement after Kayexalate. Repeat BMP ordered no. Labs pending, will follow She is agreeable with dialysis if the potassium does not improve Multiple discussions with hospitalist HPI Consult Data Date of Consult: 03/14/25 HPI Narrative Reason for Consultation: Acute renal failure HPI Narrative: MISAEL MEDINA, is a 74 F who presents to the hospital with abnormal labs. Nephrology on consultation in view of acute renal failure. On review of previous lab data, it seems she has CKD stage IIIb with baseline creatinine around 1.7. History of congestive heart failure, had routine follow-up appointment with cardiology. Labs was drawn and this showed elevated creatinine, elevated potassium and she was referred to the ER. Reviewed medication list, no known medications such as potassium supplements. She is a poor historian. Does not exactly know all the medications that she is taking right now. Does not think there is any new medications. Denies taking NSAIDs, [id number] supplements. When I asked her about recent medical events, tomás says is I had pneumonia in September. Does not think she started any new medications within the last 2 months which is when the last set of labs are from. She says she was making urine, denies any hematuria, flank pain, fever, chills. Appetite has been fair. Has some lower extremity edema but she says this is better than before. She does take diuretics at home. [facility] Medical History Congestive heart failure Hypothyroidism Osteoporosis Morbid obesity with BMI of 45.0-49.9, adult Wears glasses Post-menopausal Thyroid disease Diabetes Uses wheelchair Ambulates with cane Arthritis High cholesterol Back pain TIA (transient ischemic attack) Dietary restriction Non-smoker History of pain when walking History of transesophageal echocardiography (DESTIN) Cardiology follow-up encounter Hypertension Hypertension Diabetes Home Medications ?Medication ?Instructions ?Recorded ?Last Taken ?Type atorvastatin 10 mg tablet 10 mg PO QHS cholesterol 03/12/25 History levothyroxine 100 mcg tablet 100 mcg PO DAILY thyroid 08/31/22 03/13/25 History (Synthroid) aspirin 81 mg chewable tablet 81 mg PO DAILYCM 90 days #90 tabs 10/21/24 03/13/25 Rx carvedilol 6.25 mg tablet (Coreg) 6.25 mg PO BID #60 t abs 12/01/24 03/13/25 Rx dapagliflozin propanediol 10 mg 10 mg PO QDAY #30 tabs 03/12/25 Unknown Rx tablet (Farxiga) furosemide 40 mg tablet 40 mg PO QAM #30 tabs 03/13/25 Rx metformin 500 mg tablet 500 mg PO BID 03/12/2503/13 History Allergy/AdvReac Type Severity Reaction Status Date / Time No Known Allergies Allergy Verified 03/13/25 13:58 Family History Mother Hypertension Father Heart disease Surgical History Hx of colonoscopy Hx of cholecystectomy H/O: hysterectomy Social History household members: spouse Smoking Status: Never smoker alcohol intake: never substance use type: does not use caffeine: No ROS ROS Narrative Negative except history Physical Exam Narrative Alert awake oriented x 3 no obvious distress no pallor no icterus no JVD s1s2 no murmurs lungs clear abdomen soft no organomegaly no edema no cyanosis Lab / Micro Data 03/14/25 06:05 03/14/25 06:05 Labs: Laboratory Results - last 24 hr 03/13/25 15:11: WBC 7.7, RBC 4.33, Hgb 11.3 L, Hct 38.7, MCV 89.4, MCH 26.1 L, MCHC 29.2 L, RDW Std Deviation 57.1 H, RDW Coeff of Leif 17.4 H, Plt Count 241, MPV 9.4, Immature Gran % (Auto) 0.600, Neut % (Auto) 79.2 H, Lymph % (Auto) 11.5L, [place] % (Auto) 7.8, Eos % (Auto) 0.6, Baso % (Auto) 0.3, Absolute Neuts (auto)6.1, Absolute Lymphs (auto) 0.89, Nucleated RBC % 1.9, Sodium 141, Potassium 6.7H*, Chloride 114 H, Carbon Dioxide 16.6 L, Anion Gap 11, BUN 88 H, Creatinine 5.10 H, Estim Creat Clear Calc 11.41 L, Est GFR (MDRD) Non-Af 8 L, BUN/Creatinine Ratio 17.3, Glucose 138 H, Calcium 8.5, Phosphorus 5.5 H, Magnesium 2.6 H, Troponin T High Sens 159 H*, [place] > 38769 H 03/13/25 17:30: Troponin T Hi Sens 2 Hr 159 H*, Urine Color Yellow, Urine Clarity Cloudy, Urine pH 5.0, Ur Specific [place] 1.025, Urine Protein 100 H, Urine Glucose (UA) Normal, Urine Ketones Negative, Urine Occult Blood 150 H, Urine Nitrite Negative, Urine Bilirubin 1 H, Urine Urobilinogen Normal, Ur Leukocyte Esterase 500 H, Urine RBC 5-10 SEEN, Urine WBC 50-100 SEEN, Ur Squamous Epith Cells 10-25 SEEN, Ur Transition Epith Cell 0-5 SEEN, Urine Bacteria 4+, Urine Mucus 0 SEEN, Urine Osmolality 353, Ur Random Sodium < 20, Urine Potassium 20.8, Urine Chloride 24, Urine Urea Nitrogen 374 03/13/25 18:21: POC Glucose 234 H 03/13/25 18:33: PT 15.7 H, INR 1.2, APTT 29.4, Serum Osmolality 330 H 03/13/25 21:00: Troponin T Hi Sens 4Hr 160 H* 03/14/25 06:05: WBC 7.5, RBC 4.43, Hgb 11.5 L, Hct 40.1, MCV 90.5, MCH 26.0 L, MCHC 28.7 L, RDW Std Deviation 57.9 H, RDW Coeff of Leif 17.4 H, Plt Count 232, MPV 9.6, Immature Gran % (Auto) 0.700, Neut % (Auto) 76.2 H, Lymph % (Auto) 14.0L, [place] % (Auto) 7.7, Eos % (Auto) 1.1, Baso % (Auto) 0.3, Absolute Neuts (auto)5.7, Absolute Lymphs (auto) 1.05, Nucleated RBC % 1.7, Sodium 140, Potassium 7.4H*, Chloride 114 H, Carbon Dioxide 15.1 L, Anion Gap 11, BUN 92 H, Creatinine 5.38 H, Estim Creat Clear Calc 10.71 L, Est GFR (MDRD) Non-Af 8 L, BUN/Creatinine Ratio 17.1, Glucose 79, Calcium 8.9 03/14/25 06:15: POC Glucose 76 03/14/25 11:38: POC Glucose 69 L 03/14/25 12:18: Total Creatine Kinase 26 03/14/25 12:41: POC Glucose 76 Imaging Radiology Impression Chest X-Ray 03/13/25 16:45 IMPRESSION: 1. Limited hypoinflated exam. Cardiomegaly with central vascular prominence and at least ceblo-ff-bllesdqr RIGHT pleural effusion. 2. RIGHT-sided airspace disease adjacent to the effusion may reflect compressiveatelectasis and/or pneumonia. Follow-up to radiographic resolution recommended. 3. Additional description as above. Reading Location: [id number] 03/14/25 7777 <Electronically signed by Lorraine Grande MD> Cosigner Signature (if applicable): CC: Dr. Donal Castle MD~ Signed [facility] Work Phone: [phone]) 138-147604-30-2025 Progress note [facility] Medical Records Department [address] [place] [address] Progress Note - Hospitalist 03/14/25 1121 MR#: [id number] Acct: [id number] Name: MISAEL MEDINA Rep #:[id number] : 1950 74 From: Seth mai DO PCP: Dr. Donal Castle MD Status:ADM IN Location: [place] [address] Reason for Visit Reason for Visit: Diagnoses Essential (primary) hypertension (03/13/25) Pulmonary hypertension, unspecified (03/13/25) Nonrheumatic aortic (valve) stenosis (03/13/25) Acute on chronic systolic (congestive) heart failure (03/13/25) Acute kidney failure, unspecified (03/13/25) Chronic kidney disease, unspecified (03/13/25) Subjective Subjective Saw patient at bedside this morning. Patient was mildly fatigued appearing but otherwise sitting back comfortably in bed and in no acute distress. She was alert and oriented to person and place but not time and had some confusion when answering multiple questions. She denied any acute pain or discomfort currently. Denied any nausea. Denied any shortness of breath. No other new concerns morning. Objective Data Objective Data Vital Signs: Vital Signs Temp Pulse Resp BP Pulse Ox O2 Del Method O2 Flow Rate 97.4 F L 62 16 126/52 H 94 Nasal Cannula 2 03/14/25 08:18 03/14/25 08:18 03/14/25 08:18 03/14/25 08:18 03/14/25 08:18 03/14/25 09:08 03/14/25 08:18 Oxygen Flow Rate (L/min) 2 Oxygen Delivery Method Nasal Cannula Weight: 116.573 kg Body Mass Index (BMI) 50.1 Intake & Output: Intake and Output for Last 24 Hours 03/12/25 03/13/25 03/14/25 23:59 23:59 23:59 Intake Total 325.33 / 325.33 250 / 250 Balance 325.33 / 325.33 250 / 250 Lab / Micro Data 03/14/25 06:05 03/14/25 12:18 Labs: Laboratory Results - last 24 hr 03/13/25 15:11: WBC 7.7, RBC 4.33, Hgb 11.3 L, Hct 38.7, MCV 89.4, MCH 26.1 L, MCHC 29.2 L, RDW StdDeviation 57.1 H, RDW Coeff of Leif 17.4 H, Plt Count 241, MPV 9.4, Immature Gran % (Auto) 0.600, Neut % (Auto) 79.2 H, Lymph % (Auto) 11.5L, [place] % (Auto) 7.8, Eos % (Auto) 0.6, Baso % (Auto) 0.3, Absolute Neuts (auto)6.1, Absolute Lymphs (auto) 0.89, Nucleated RBC % 1.9, Sodium 141, Potassium 6.7H*, Chloride 114 H, Carbon Dioxide 16.6 L, Anion Gap 11, BUN 88 H, Creatinine 5.10 H, Estim Creat Clear Calc 11.41 L, Est GFR (MDRD) Non-Af 8 L, BUN/Creatinine Ratio 17.3, Glucose 138 H, Calcium 8.5, Phosphorus 5.5 H, Magnesium 2.6 H, Troponin T High Sens 159 H*, [place] > 45987 H 03/13/25 17:30: Troponin T Hi Sens 2 Hr 159 H*, Urine Color Yellow, Urine Clarity Cloudy, Urine pH 5.0, Ur Specific [place] 1.025, Urine Protein 100 H, Urine Glucose (UA) Normal, Urine Ketones Negative, Urine Occult Blood 150 H, Urine Nitrite Negative, Urine Bilirubin 1 H, Urine Urobilinogen Normal, Ur Leukocyte Esterase 500 H, Urine RBC 5-10 SEEN, Urine WBC 50-100 SEEN, Ur Squamous Epith Cells 10-25 SEEN, Ur Transition Epith Cell 0-5 SEEN, Urine Bacteria 4+, Urine Mucus 0 SEEN, Urine Osmolality 353, Ur Random Sodium < 20, Urine Potassium 20.8, Urine Chloride 24, Urine Urea Nitrogen 374 03/13/25 18:21: POC Glucose 234 H 03/13/25 18:33: PT 15.7 H, INR 1.2, APTT 29.4, Serum Osmolality 330 H 03/13/25 21:00: Troponin T Hi Sens 4Hr 160 H* 03/14/25 06:05: WBC 7.5, RBC 4.43, Hgb 11.5 L, Hct 40.1, MCV 90.5, MCH 26.0 L, MCHC 28.7 L, RDW StdDeviation 57.9 H, RDW Coeff of Leif 17.4 H, Plt Count 232, MPV 9.6, Immature Gran % (Auto) 0.700, Neut % (Auto) 76.2 H, Lymph % (Auto) 14.0L, [place] % (Auto) 7.7, Eos % (Auto) 1.1, Baso % (Auto) 0.3, Absolute Neuts (auto)5.7, Absolute Lymphs (auto) 1.05, Nucleated RBC % 1.7, Sodium 140, Potassium 7.4H*, Chloride 114 H, Carbon Dioxide 15.1 L, Anion Gap 11, BUN 92 H, Creatinine 5.38 H, Estim Creat Clear Calc 10.71 L, Est GFR (MDRD) Non-Af 8 L, BUN/Creatinine Ratio 17.1, Glucose 79, Calcium 8.9 03/14/25 06:15: POC Glucose 76 Radiography Diagnostic Testing: Radiology Impression Chest X-Ray 03/13/25 16:45 IMPRESSION: 1. Limited hypoinflated exam. Cardiomegaly with central vascular prominence and at least [id number] RIGHT pleural effusion. 2. RIGHT-sided airspace disease adjacent to the effusion may reflect compressiveatelectasis and/or pneumonia. Follow-up to radiographic resolution recommended. 3. Additional description as above. Reading Location: [facility] Physical Exam Const alert and no apparent distress Constitutional Narrative: Elderly female, class III obesity, mildly fatigued appearing, alert and orientedto person and placebut not time and some confusion with answering questions, otherwise sitting back comfortably in bedand in no acute distress. General Appearance: cooperative and comfortable HEENT normocephalic, head/scalp atraumatic, hearing grossly normal bilaterally, nasal mucous membranes and turbinates normal and moist oral mucous membranes Eyes PERRL, EOMs intact bilaterally and conjunctivae normal Neck full ROM Chest inspection of chest normal Resp normal respiratory effort and no use of accessory muscles Resp Narrative: Breathing comfortably on 2 L nasal cannula at rest. Decreased breath sounds in bilateral lung baseswith mild crackles noted, no wheezing noted. Cardio regular rate, regular rhythm, no murmurs and peripheral pulses 2+ throughout GI normal to inspection, nondistended, normoactive bowel sounds, soft to palpation,non-tender and non-distended Back/Spine normal ROM Extremity Extremity Narrative: +2-3 lower extremity pitting edema noted. Skin no rashes or lesions noted Neuro moves all extremities and no focal motor deficits Assessment & Plan Assessment/Plan (1) Acute on chronic renal failure: (2) Hyperkalemia: PLAN: Plan Patient is a 74-year-old female who presented to [facility] ED on 03/13/2025 with fatigue and abnormal labs. 1. Severe JOSUE on CKD stage IIIb with hyperkalemia and metabolic acidosis ? Nephrology following. Creatinine 5.10, BUN 88, potassium 6.7 on admit. Baseline creatinine 1.6-1.7. Potassium worsened to 7.4 on morning of 03/14; no EKG changes noted and treated with calcium/insulin/dextrose/Kayexalate/sodium bicarbonate push with repeat potassium 6.3. Unclear etiology for JOSUE at this time. Postvoid bladder scan was negative but renal ultrasound pending. Appearsvolume overloaded on exam but urine sodium low. Per nephrology, will treat withIV Lasix plus or minus bicarbonate as needed for now and monitor closely. Patient notably is making urine. Monitor BMP daily. No acute he modialysis needs today but if not much improvement by tomorrow, suspected that she will need to be initiated on dialysis. 2. Acute on chronic HFrEF with hypoxia, hypertension, hyperlipidemia ? Cardiology following. Initially diagnosed with HFrEF with EF 40 to 45% in October. Was started on Coreg and lisinopril then but unfortunately repeat echo on 12/12 showed EF of 30% with moderate to severe global LV hypokinesis. Saw cardiology in the office on 03/12 and noted to have 17 pound weightgain. Labs drawn on 03/12 with findings as above as well as BNP greater than 70,000. Currently giving IV Lasix as needed per nephrology recommendation. Appreciate cardiology and nephrology recommendations going forward. Okay to continue home aspirin, statin and Coreg. 3. Acute on chronic debility ? PT/OT/case management consulted. 4. Concern for UTI ? UA with 500 leukocyte esterase, negative nitrates, 4+ bacteria, 50-100 WBCs. Urine culture pending. Treat empirically with IV ceftriaxone for now, follow- upurine culture. 5. Elevated troponin ? Cardiology following as above. Troponin trend 159 > 159 > 160 on admit. No new ischemic EKGchanges noted. No chest pain noted. Suspected demand ischemiasecondary to HFrEF and JOSUE as noted above, no further cardiac workup needed. Chronic medical conditions: ? Class III obesity: BMI 50 on admit. Complicates hospital course, care and prognosis. ? Type 2 diabetes mellitus: Hold home metformin and dapagliflozin. Treating with sliding scale insulin with meals for now, adjust as needed. ? Hypothyroidism: Continue home Synthroid. DVT prophylaxis: Heparin subcu CODE STATUS: Full code, verified Expected disposition: TBD Total clinical time spent by myself addressing the patient's medical issues, reviewing all the data, and collaborating with patient's care team: 50 minutes. Charges/Coding Visit Charges Inpatient E&M: 69632 Subs Hosp L3 03/14/25 1504 Cosigner Signature (if applicable): CC: ~ Signed [facility]04-30-2025 Consult note [facility] Medical Records Department [address] [place] [address] Consultation - Nephrology 03/14/25 1409 MR#: [id number] Acct: [id number] Name: MISAEL MEDINA Renée Rep #:[id number] : 1950 74 From: Lorraine reyez MD PCP: Dr. Donal Castle MD Status:ADM IN Location: [place] [address] Assessment & Plan Assessment/Plan (1) Acute kidney injury superimposed on chronic kidney disease: PLAN: CKD stage IIIb at baseline, 1.7 last creatinine from December. Came with a creatinine of 4.7 or so, worse now. She says she is making urine. Discussed with nursing staff. She has voided once when she was havingbowel movement earlier today. Postvoid bladder scan was negative will order a renal ultrasound Renal ultrasound with leukocytes, RBC, protein. Cultures pending Urine sodium less than 20 History of congestive heart failure. Chest x-ray is okay. Has moderate lower extremity edema which according to her is better than before. BNP significantlyhigh. Breathing looks comfortable right now Hyperkalemia. Potassium level 7.4 this morning. Discussed with hospitalist. No EKG changes. She hasreceived insulin, dextrose, bicarbonate, Kayexalate. She did have a large bowel movement after Kayexalate. Repeat BMP ordered no. Labs pending, will follow She is agreeable with dialysis if the potassium does not improve Multiple discussions with hospitalist HPI Consult Data Date of Consult: 03/14/25 HPI Narrative Reason for Consultation: Acute renal failure HPI Narrative: MISAEL MEDINA, is a 74 F who presents to the hospital with abnormal labs. Nephrology on consultation in view of acute renal failure. On review of previous lab data, it seems she has CKD stage IIIbwith baseline creatinine around 1.7. History of congestive heart failure, had routine follow-up appointment with cardiology. Labs was drawn and this showed elevated creatinine, elevated potassium andshe was referred to the ER. Reviewed medication list, no known medications such as potassium supplements. She is a poor historian. Does not exactly know all the medications that she is taking right now. Does not think there is any new medications. Denies taking NSAIDs, [id number]-[id number] supplements.When I asked her about recent medical events, tomás says is I had pneumonia in September. Does not think she started any new medications within the last 2 months which is when the last set of labs are from. She says she was making urine, denies any hematuria, flank pain, fever, chills. Appetite hasbeen fair. Has some lower extremity edema but she says this is better than before. She does take diuretics at home. [facility] Medical History Congestive heart failure Hypothyroidism Osteoporosis Morbid obesity with BMI of 45.0-49.9, adult Wears glasses Post-menopausal Thyroid disease Diabetes Uses wheelchair Ambulates with cane Arthritis High cholesterol Back pain TIA (transient ischemic attack) Dietary restriction Non-smoker History of pain when walking History of transesophageal echocardiography (DESTIN) Cardiology follow-up encounter Hypertension Hypertension Diabetes Home Medications ?Medication ?Instructions ?Recorded ?Last Taken ?Type atorvastatin 10 mg tablet 10 mg PO QHS cholesterol 03/12/25 History levothyroxine 100 mcg tablet 100 mcg PO DAILY thyroid 08/31/22 03/13/25 History (Synthroid) aspirin 81 mg chewable tablet 81 mg PO DAILYCM 90 days #90 tabs 10/21/24 03/13/25 Rx carvedilol 6.25 mg tablet (Coreg) 6.25 mg PO BID #60 t abs 12/01/24 03/13/25 Rx dapagliflozin propanediol 10 mg 10 mg PO QDAY #30 tabs 03/12/25 Unknown Rx tablet (Farxiga) furosemide 40 mg tablet 40 mg PO QAM #30 tabs 03/13/25 Rx metformin 500 mg tablet 500 mg PO BID 03/12/2503/13 History Allergy/AdvReac Type Severity Reaction Status Date / Time No Known Allergies Allergy Verified 03/13/25 13:58 Family History Mother Hypertension Father Heart disease Surgical History Hx of colonoscopy Hx of cholecystectomy H/O: hysterectomy Social History household members: spouse Smoking Status: Never smoker alcohol intake: never substance use type: does not use caffeine: No ROS ROS Narrative Negative except history Physical Exam Narrative Alert awake oriented x 3 no obvious distress no pallor no icterus no JVD s1s2 no murmurs lungs clear abdomen soft no organomegaly no edema no cyanosis Lab / Micro Data 03/14/25 06:05 03/14/25 06:05 Labs: Laboratory Results - last 24 hr 03/13/25 15:11: WBC 7.7, RBC 4.33, Hgb 11.3 L, Hct 38.7, MCV 89.4, MCH 26.1 L, MCHC 29.2 L, RDW StdDeviation 57.1 H, RDW Coeff of Leif 17.4 H, Plt Count 241, MPV 9.4, Immature Gran % (Auto) 0.600, Neut % (Auto) 79.2 H, Lymph % (Auto) 11.5L, [place] % (Auto) 7.8, Eos % (Auto) 0.6, Baso % (Auto) 0.3, Absolute Neuts (auto)6.1, Absolute Lymphs (auto) 0.89, Nucleated RBC % 1.9, Sodium 141, Potassium 6.7H*, Chloride 114 H, Carbon Dioxide 16.6 L, Anion Gap 11, BUN 88 H, Creatinine 5.10 H, Estim Creat Clear Calc 11.41 L, Est GFR (MDRD) Non-Af 8 L, BUN/Creatinine Ratio 17.3, Glucose 138 H, Calcium 8.5, Phosphorus 5.5 H, Magnesium 2.6 H, Troponin T High Sens 159 H*, [place] > 03412 H 03/13/25 17:30: Troponin T Hi Sens 2 Hr 159 H*, Urine Color Yellow, Urine Clarity Cloudy, Urine pH 5.0, Ur Specific [place] 1.025, Urine Protein 100 H, Urine Glucose (UA) Normal, Urine Ketones Negative, Urine Occult Blood 150 H, Urine Nitrite Negative, Urine Bilirubin 1 H, Urine Urobilinogen Normal, Ur Leukocyte Esterase 500 H, Urine RBC 5-10 SEEN, Urine WBC 50-100 SEEN, Ur Squamous Epith Cells 10-25 SEEN, Ur Transition Epith Cell 0-5 SEEN, Urine Bacteria 4+, Urine Mucus 0 SEEN, Urine Osmolality 353, Ur Random Sodium < 20, Urine Potassium 20.8, Urine Chloride 24, Urine Urea Nitrogen 374 03/13/25 18:21: POC Glucose 234 H 03/13/25 18:33: PT 15.7 H, INR 1.2, APTT 29.4, Serum Osmolality 330 H 03/13/25 21:00: Troponin T Hi Sens 4Hr 160 H* 03/14/25 06:05: WBC 7.5, RBC 4.43, Hgb 11.5 L, Hct 40.1, MCV 90.5, MCH 26.0 L, MCHC 28.7 L, RDW StdDeviation 57.9 H, RDW Coeff of Leif 17.4 H, Plt Count 232, MPV 9.6, Immature Gran % (Auto) 0.700, Neut % (Auto) 76.2 H, Lymph % (Auto) 14.0L, [place] % (Auto) 7.7, Eos % (Auto) 1.1, Baso % (Auto) 0.3, Absolute Neuts (auto)5.7, Absolute Lymphs (auto) 1.05, Nucleated RBC % 1.7, Sodium 140, Potassium 7.4H*, Chloride 114 H, Carbon Dioxide 15.1 L, Anion Gap 11, BUN 92 H, Creatinine 5.38 H, Estim Creat Clear Calc 10.71 L, Est GFR (MDRD) Non-Af 8 L, BUN/Creatinine Ratio 17.1, Glucose 79, Calcium 8.9 03/14/25 06:15: POC Glucose 76 03/14/25 11:38: POC Glucose 69 L 03/14/25 12:18: Total Creatine Kinase 26 03/14/25 12:41: POC Glucose 76 Imaging Radiology Impression Chest X-Ray 03/13/25 16:45 IMPRESSION: 1. Limited hypoinflated exam. Cardiomegaly with central vascular prominence and at least [id number] RIGHT pleural effusion. 2. RIGHT-sided airspace disease adjacent to the effusion may reflect compressiveatelectasis and/or pneumonia. Follow-up to radiographic resolution recommended. 3. Additional description as above. Reading Location: [id number] 03/14/25 1413 Cosigner Signature (if applicable): CC: Dr. Donal Castle MD~ Signed [facility]04-30-2025 Progress note Author Lorraine Grande [facility] Note Date/Time March 14, 2025 11: 17am [facility] Medical Records Department [address] [place] [address] Progress Note 03/14/25 111 MR#: [id number] Acct: [id number] Name: MISAEL MEDINA Rep #:[id number] : 1950 74 From: Lorraine reyez MD PCP: Dr. Donal Castle MD Status:ADM IN Location: [place] [address] Progress Note Came in as a routine consult this am for JOSUE. I was notified by Toyin sample today around 9 am about K being high. Called and spoke to Dr Cottrell, coveringhospitalist. baseline cr 1.7. now more than 5. no reason to suspect urinary retention as per Dr Cottrell. renal US ordered K is 7.4 and bicarbonate 15 insulin dextrose sodium bicarbonate kayexalate have all been ordered repeat K this afternoon. will review 03/14/25 1117 <Electronically signed by Lorraine Grande MD> Lorraine Grande MD Cosigner Signature (if applicable): CC: ~ Signed [facility] Work Phone: 1(412) 651-720404-30-2025 Progress note Author Ramone Adams [facility] Note Date/Time March 14, 2025 10: 17am [facility] Medical Records Department [address] [place] [address] Progress Note - Cardiology 03/14/2547 MR#: [id number] Acct: [id number] Name: MISAEL MEDINA Rep #:[id number] : 1950 74 From: Ramone Adams MD PCP: Dr. Donal Castle MD Status:ADM IN Location: [place] [address] Subjective Subjective Patient seen and evaluated this morning. Appears to be still having some difficulty breathing and appears to be rather anasarcic. Objective Data Vital Signs: Vital Signs Temp Pulse Resp BP Pulse Ox O2 Del Method O2 Flow Rate 97.4 F L 62 16 126/52 H 94 Nasal Cannula 2 03/14/25 08:18 03/14/25 08:18 03/14/25 08:18 03/14/25 08:18 03/14/25 08:18 03/14/25 08:18 03/14/25 08:18 Oxygen Flow Rate (L/min) 2 Oxygen Delivery Method Nasal Cannula Weight: 257 lb Body Mass Index (BMI) 50.1 Intake & Output: Intake and Output for Last 24 Hours 03/12/25 03/13/25 03/14/25 23:59 23:59 23:59 Intake Total 325.33 / 325.33 Balance 325.33 / 325.33 Lab / Micro Data 03/14/25 06:05 03/14/25 06:05 Labs: Laboratory Results - last 24 hr 03/13/25 15:11: WBC 7.7, RBC 4.33, Hgb 11.3 L, Hct 38.7, MCV 89.4, MCH 26.1 L, MCHC 29.2 L, RDW Std Deviation 57.1 H, RDW Coeff of Leif 17.4 H, Plt Count 241, MPV 9.4, Immature Gran % (Auto) 0.600, Neut % (Auto) 79.2 H, Lymph % (Auto) 11.5L, [place] % (Auto) 7.8, Eos % (Auto) 0.6, Baso % (Auto) 0.3, Absolute Neuts (auto)6.1, Absolute Lymphs (auto) 0.89, Nucleated RBC % 1.9, Sodium 141, Potassium 6.7H*, Chloride 114 H, Carbon Dioxide 16.6 L, Anion Gap 11, BUN 88 H, Creatinine 5.10 H, Estim Creat Clear Calc 11.41 L, Est GFR (MDRD) Non-Af 8 L, BUN/Creatinine Ratio 17.3, Glucose 138 H, Calcium 8.5, Phosphorus 5.5 H, Magnesium 2.6 H, Troponin T High Sens 159 H*, [place] > 90259 H 03/13/25 17:30: Troponin T Hi Sens 2 Hr 159 H*, Urine Color Yellow, Urine Clarity Cloudy, Urine pH 5.0, Ur Specific [place] 1.025, Urine Protein 100 H, Urine Glucose (UA) Normal, Urine Ketones Negative, Urine Occult Blood 150 H, Urine Nitrite Negative, Urine Bilirubin 1 H, Urine Urobilinogen Normal, Ur Leukocyte Esterase 500 H, Urine RBC 5-10 SEEN, Urine WBC 50-100 SEEN, Ur Squamous Epith Cells 10-25 SEEN, Ur Transition Epith Cell 0-5 SEEN, Urine Bacteria 4+, Urine Mucus 0 SEEN, Urine Osmolality 353, Ur Random Sodium < 20, Urine Potassium 20.8, Urine Chloride 24 03/13/25 18:21: POC Glucose 234 H 03/13/25 18:33: PT 15.7 H, INR 1.2, APTT 29.4, Serum Osmolality 330 H 03/13/25 21:00: Troponin T Hi Sens 4Hr 160 H* 03/14/25 06:05: WBC 7.5, RBC 4.43, Hgb 11.5 L, Hct 40.1, MCV 90.5, MCH 26.0 L, MCHC 28.7 L, RDW Std Deviation 57.9 H, RDW Coeff of Leif 17.4 H, Plt Count 232, MPV 9.6, Immature Gran % (Auto) 0.700, Neut % (Auto) 76.2 H, Lymph % (Auto) 14.0L, [place] % (Auto) 7.7, Eos % (Auto) 1.1, Baso % (Auto) 0.3, Absolute Neuts (auto)5.7, Absolute Lymphs (auto) 1.05, Nucleated RBC % 1.7, Sodium 140, Potassium 7.4H*, Chloride 114 H, Carbon Dioxide 15.1 L, Anion Gap 11, BUN 92 H, Creatinine 5.38 H, Estim Creat Clear Calc 10.71 L, Est GFR (MDRD) Non-Af 8 L, BUN/Creatinine Ratio 17.1, Glucose 79, Calcium 8.9 03/14/25 06:15: POC Glucose 76 Cardiology Labs/Tests 03/13/25 15:11: WBC 7.7, RBC 4.33, Hgb 11.3 L, Hct 38.7, MCV 89.4, MCH 26.1 L, MCHC 29.2 L, Plt Count 241, MPV 9.4, Immature Gran % (Auto) 0.600, Neut % (Auto) 79.2 H, Lymph % (Auto) 11.5 L, [place] % (Auto) 7.8, Eos % (Auto) 0.6, Baso % (Auto) 0.3, Absolute Neuts (auto) 6.1, Nucleated RBC % 1.9, Sodium 141, Potassium 6.7 H*, Chloride 114 H, Carbon Dioxide 16.6 L, Anion Gap 11, BUN 88 H, Creatinine 5.10 H, Est GFR (MDRD) Non-Af 8 L, BUN/Creatinine Ratio 17.3, [id number] H, Calcium 8.5, Phosphorus 5.5 H, Magnesium 2.6 H 03/13/25 17:30: Urine Color Yellow, Urine Clarity Cloudy, Urine pH 5.0, Ur Specific [place] 1.025, Urine Protein 100 H, Urine Glucose (UA) Normal, Urine Ketones Negative, Urine Occult Blood 150 H, Urine Nitrite Negative, Urine Bilirubin 1 H, Urine Urobilinogen Normal, Ur Leukocyte Esterase 500 H, Urine RBC5-10 SEEN, Urine WBC 50-100 SEEN 03/13/25 18:33: PT 15.7 H, INR 1.2, APTT 29.4, Serum Osmolality 330 H 03/14/25 06:05: WBC 7.5, RBC 4.43, Hgb 11.5 L, Hct 40.1, MCV 90.5, MCH 26.0 L, MCHC 28.7 L, Plt Count 232, MPV 9.6, Immature Gran % (Auto) 0.700, Neut % (Auto) 76.2 H, Lymph % (Auto) 14.0 L, [place] % (Auto) 7.7, Eos % (Auto) 1.1, Baso % (Auto) 0.3, Absolute Neuts (auto) 5.7, Nucleated RBC % 1.7, Sodium 140, Potassium 7.4 H*, Chloride 114 H, Carbon Dioxide 15.1 L, Anion Gap 11, BUN 92 H, Creatinine 5.38 H, Est GFR (MDRD) Non-Af 8 L, BUN/Creatinine Ratio 17.1, [id number], Calcium 8.9 Rhythm: EKG: ECHO: Stress Test: Cardiac Cath: PCI: CT Surgery: Holter monitor: EPS: PPM: CXR: Chest CT Scan: Radiography Diagnostic Testing: Radiology Impression Chest X-Ray 03/13/25 16:45 IMPRESSION: 1. Limited hypoinflated exam. Cardiomegaly with central vascular prominence and at least [id number] RIGHT pleural effusion. 2. RIGHT-sided airspace disease adjacent to the effusion may reflect compressiveatelectasis and/or pneumonia. Follow-up to radiographic resolution recommended. 3. Additional description as above. Reading Location: [facility] Physical Exam Const alert, oriented x3 and no apparent distress General Appearance: cooperative HEENT hearing grossly normal bilaterally Head and Scalp: atraumatic Eyes EOMs intact bilaterally Neck General: normal visual inspection Chest inspection of chest normal and palpation of chest normal Resp normal respiratory effort Auscultation: diminished lung sounds Cardio regular rate, regular rhythm, S1 normal heart sound and S2 normal heart sound Jugular Venous Distention: JVD GI normal to inspection, nondistended, normoactive bowel sounds Extremity General Extremity: edema bilateral lower extremity Peripheral Pulses: Yes pulses 2+ throughout Skin no rashes or lesions noted Neuro CN's II-XII intact bilaterally Psych Appearance: grossly normal and appropriate Assessment & Plan Assessment/Plan (1) Congestive heart failure: QUALIFIERS: Heart failure type: systolic Heart failure chronicity: acute on chronic Qualified Code(s): I50.23 - Acute on chronic systolic (congestive) heart failure PLAN: Patient presents with shortness of breath worsening renal function with electrolyte abnormalities including hyperkalemia and ejection fraction noted to be in the 30% range. * Recommendation at this time would be to consider renal involvement with a view to possible dialysis to see whether 1 can get some of the fluid off. * Medications can then be tailored with beta-ralph at this time. * Depending on blood pressures may be able to tolerate hydralazine and isosorbide but no BRETT inhibitors ARB's or Arni's for now. * (2) Aortic valve stenosis: QUALIFIERS: Cardiac valve disease etiology: nonrheumatic Qualified Code(s): I35.0 - Nonrheumatic aortic (valve) stenosis PLAN: Patient is noted to have mild aortic stenosis. I do not think that this is contributing necessarily to her clinical condition at this time. (3) Hypertension: QUALIFIERS: Hypertension type: primary hypertension Qualified Code(s): I10 - Essential (primary) hypertension PLAN: Patient has a history of hypertension. Will continue to observe for now until dialysis is taken place. (4) Pulmonary hypertension: PLAN: Patient has at least moderate pulmonary hypertension. There is moderate mitral regurgitation and moderate tricuspid regurgitation likely on the basis ofa dilated annulus. Hopefully this will improve with removal of fluid through dialysis preferably. (5) Acute on chronic renal failure: PLAN: Patient appears to have acute on chronic renal insufficiency. Potassium is elevated creatinine is elevated and this will be addressed hopefully with dialysis. EKG today does not demonstrate any evidence of peaked T waves. Patient still is in sinus rhythm. 03/14/25 1017 <Electronically signed by Ramone Adams MD> Cosigner Signature (if applicable): CC: ~ Signed [facility] Work Phone: [phone] Progress note [facility] Medical Records Department [address] [place] [id number] Progress Note 03/14/25 1115 MR#: [id number] Acct: [id number] Name: MISAEL MEDINA Rep #:[id number] : 1950 74 From: Lorraine reyez MD PCP: Dr. Donal Castle MD Status:ADM IN Location: [place] [address] Progress Note Came in as a routine consult this am for JOSUE. I was notified by Toyin mendez today around 9 am aboutK being high. Called and spoke to Dr Cottrell, coveringhospitalist. baseline cr 1.7. now more than5. no reason to suspect urinary retention as per Dr Cottrell. renal US ordered K is 7.4 and bicarbonate 15 insulin dextrose sodium bicarbonate kayexalate have all been ordered repeat K this afternoon. will review 03/14/25 1117 Lorraine Grande MD Cosigner Signature (if applicable): CC: ~ Signed [facility]04-30-2025 Progress note [facility] Medical Records Department [address] [place] [address] Progress Note - Cardiology 03/14/25 0847 MR#: [id number] Acct: [id number] Name: MISAEL MEDINA Rep #:[id number] : 1950 74 From: Ramone Adams MD PCP: Dr. Donal Caslte MD Status:ADM IN Location: [place] [address] Subjective Subjective Patient seen and evaluated this morning. Appears to be still having some difficulty breathing and appears to be rather anasarcic. Objective Data Vital Signs: Vital Signs Temp Pulse Resp BP Pulse Ox O2 Del Method O2 Flow Rate 97.4 F L 62 16 126/52 H 94 Nasal Cannula 2 03/14/25 08:18 03/14/25 08:18 03/14/25 08:18 03/14/25 08:18 03/14/25 08:18 03/14/25 08:18 03/14/25 08:18 Oxygen Flow Rate (L/min) 2 Oxygen Delivery Method Nasal Cannula Weight: 257 lb Body Mass Index (BMI) 50.1 Intake & Output: Intake and Output for Last 24 Hours 03/12/25 03/13/25 03/14/25 23:59 23:59 23:59 Intake Total 325.33 / 325.33 Balance 325.33 / 325.33 Lab / Micro Data 03/14/25 06:05 03/14/25 06:05 Labs: Laboratory Results - last 24 hr 03/13/25 15:11: WBC 7.7, RBC 4.33, Hgb 11.3 L, Hct 38.7, MCV 89.4, MCH 26.1 L, MCHC 29.2 L, RDW StdDeviation 57.1 H, RDW Coeff of Leif 17.4 H, Plt Count 241, MPV 9.4, Immature Gran % (Auto) 0.600, Neut % (Auto) 79.2 H, Lymph % (Auto) 11.5L, [place] % (Auto) 7.8, Eos % (Auto) 0.6, Baso % (Auto) 0.3, Absolute Neuts (auto)6.1, Absolute Lymphs (auto) 0.89, Nucleated RBC % 1.9, Sodium 141, Potassium 6.7H*, Chloride 114 H, Carbon Dioxide 16.6 L, Anion Gap 11, BUN 88 H, Creatinine 5.10 H, Estim Creat Clear Calc 11.41 L, Est GFR (MDRD) Non-Af 8 L, BUN/Creatinine Ratio 17.3, Glucose 138 H, Calcium 8.5, Phosphorus 5.5 H, Magnesium 2.6 H, Troponin T High Sens 159 H*, [place]NP II > 227[address] H 03/13/25 17:30: Troponin T Hi Sens 2 Hr 159 H*, Urine Color Yellow, Urine Clarity Cloudy, Urine pH 5.0, Ur Specific [place] 1.025, Urine Protein 100 H, Urine Glucose (UA) Normal, Urine Ketones Negative, Urine Occult Blood 150 H, Urine Nitrite Negative, Urine Bilirubin 1 H, Urine Urobilinogen Normal, Ur Leukocyte Esterase 500 H, Urine RBC 5-10 SEEN, Urine WBC 50-100 SEEN, Ur Squamous Epith Cells 10-25 SEEN, Ur Transition Epith Cell 0-5 SEEN, Urine Bacteria 4+, Urine Mucus 0 SEEN, Urine Osmolality 353, Ur Random Sodium < 20, Urine Potassium 20.8, Urine Chloride 24 03/13/25 18:21: POC Glucose 234 H 03/13/25 18:33: PT 15.7 H, INR 1.2, APTT 29.4, Serum Osmolality 330 H 03/13/25 21:00: Troponin T Hi Sens 4Hr 160 H* 03/14/25 06:05: WBC 7.5, RBC 4.43, Hgb 11.5 L, Hct 40.1, MCV 90.5, MCH 26.0 L, MCHC 28.7 L, RDW StdDeviation 57.9 H, RDW Coeff of Leif 17.4 H, Plt Count 232, MPV 9.6, Immature Gran % (Auto) 0.700, Neut % (Auto) 76.2 H, Lymph % (Auto) 14.0L, [place] % (Auto) 7.7, Eos % (Auto) 1.1, Baso % (Auto) 0.3, Absolute Neuts (auto)5.7, Absolute Lymphs (auto) 1.05, Nucleated RBC % 1.7, Sodium 140, Potassium 7.4H*, Chloride 114 H, Carbon Dioxide 15.1 L, Anion Gap 11, BUN 92 H, Creatinine 5.38 H, Estim Creat Clear Calc 10.71 L, Est GFR (MDRD) Non-Af 8 L, BUN/Creatinine Ratio 17.1, Glucose 79, Calcium 8.9 03/14/25 06:15: POC Glucose 76 Cardiology Labs/Tests 03/13/25 15:11: WBC 7.7, RBC 4.33, Hgb 11.3 L, Hct 38.7, MCV 89.4, MCH 26.1 L, MCHC 29.2 L, Plt Count 241, MPV 9.4, Immature Gran % (Auto) 0.600, Neut % (Auto) 79.2 H, Lymph % (Auto) 11.5 L, [place] % (Auto) 7.8, Eos % (Auto) 0.6, Baso % (Auto) 0.3, Absolute Neuts (auto) 6.1, Nucleated RBC % 1.9, Sodium 141, Potassium 6.7 H*, Chloride 114 H, Carbon Dioxide 16.6 L, Anion Gap 11, BUN 88 H, Creatinine 5.10 H, Est GFR (MDRD) Non-Af 8 L, BUN/Creatinine Ratio 17.3, [id number] H, Calcium 8.5, Phosphorus 5.5 H, Magnesium 2.6 H 03/13/25 17:30: Urine Color Yellow, Urine Clarity Cloudy, Urine pH 5.0, Ur Specific [place] 1.025, Urine Protein 100 H, Urine Glucose (UA) Normal, Urine Ketones Negative, Urine Occult Blood 150 H, Urine Nitrite Negative, Urine Bilirubin 1 H, Urine Urobilinogen Normal, Ur Leukocyte Esterase 500 H, Urine RBC5-10 SEEN, Urine WBC 50-100 SEEN 03/13/25 18:33: PT 15.7 H, INR 1.2, APTT 29.4, Serum Osmolality 330 H 03/14/25 06:05: WBC 7.5, RBC 4.43, Hgb 11.5 L, Hct 40.1, MCV 90.5, MCH 26.0 L, MCHC 28.7 L, Plt Count 232, MPV 9.6, Immature Gran % (Auto) 0.700, Neut % (Auto) 76.2 H, Lymph % (Auto) 14.0 L, [place] % (Auto) 7.7, Eos % (Auto) 1.1, Baso % (Auto) 0.3, Absolute Neuts (auto) 5.7, Nucleated RBC % 1.7, Sodium 140, Potassium 7.4 H*, Chloride 114 H, Carbon Dioxide 15.1 L, Anion Gap 11, BUN 92 H, Creatinine 5.38 H, Est GFR (MDRD) Non-Af 8 L, BUN/Creatinine Ratio 17.1, [id number], Calcium 8.9 Rhythm: EKG: ECHO: Stress Test: Cardiac Cath: PCI: CT Surgery: Holter monitor: EPS: PPM: CXR: Chest CT Scan: Radiography Diagnostic Testing: Radiology Impression Chest X-Ray 03/13/25 16:45 IMPRESSION: 1. Limited hypoinflated exam. Cardiomegaly with central vascular prominence and at least [id number] RIGHT pleural effusion. 2. RIGHT-sided airspace disease adjacent to the effusion may reflect compressiveatelectasis and/or pneumonia. Follow-up to radiographic resolution recommended. 3. Additional description as above. Reading Location: [facility] Physical Exam Const alert, oriented x3 and no apparent distress General Appearance: cooperative HEENT hearing grossly normal bilaterally Head and Scalp: atraumatic Eyes EOMs intact bilaterally Neck General: normal visual inspection Chest inspection of chest normal and palpation of chest normal Resp normal respiratory effort Auscultation: diminished lung sounds Cardio regular rate, regular rhythm, S1 normal heart sound and S2 normal heart sound Jugular Venous Distention: JVD GI normal to inspection, nondistended, normoactive bowel sounds Extremity General Extremity: edema bilateral lower extremity Peripheral Pulses: Yes pulses 2+ throughout Skin no rashes or lesions noted Neuro CN's II-XII intact bilaterally Psych Appearance: grossly normal and appropriate Assessment & Plan Assessment/Plan (1) Congestive heart failure: QUALIFIERS: Heart failure type: systolic Heart failure chronicity: acute on chronic Qualified Code(s): I50.23 - Acute on chronic systolic (congestive) heart failure PLAN: Patient presents with shortness of breath worsening renal function with electrolyte abnormalities including hyperkalemia and ejection fraction noted to be in the 30% range. * Recommendation at this time would be to consider renal involvement with a view to possible dialysis to see whether 1 can get some of the fluid off. * Medications can then be tailored with beta-ralph at this time. * Depending on blood pressures may be able to tolerate hydralazine and isosorbide but no BRETT inhibitors ARB's or Arni's for now. * (2) Aortic valve stenosis: QUALIFIERS: Cardiac valve disease etiology: nonrheumatic Qualified Code(s): I35.0 - Nonrheumatic aortic (valve) stenosis PLAN: Patient is noted to have mild aortic stenosis. I do not think that this is contributing necessarily to her clinical condition at this time. (3) Hypertension: QUALIFIERS: Hypertension type: primary hypertension Qualified Code(s): I10 - Essential (primary) hypertension PLAN: Patient has a history of hypertension. Will continue to observe for now until dialysis is taken place. (4) Pulmonary hypertension: PLAN: Patient has at least moderate pulmonary hypertension. There is moderate mitral regurgitation and moderate tricuspid regurgitation likely on the basis ofa dilated annulus. Hopefully this will improve with removal of fluid through dialysis preferably. (5) Acute on chronic renal failure: PLAN: Patient appears to have acute on chronic renal insufficiency. Potassium is elevated creatinine is elevated and this will be addressed hopefully with dialysis. EKG today does not demonstrate anyevidence of peaked T waves. Patient still is in sinus rhythm. 03/14/25 1017 Cosigner Signature (if applicable): CC: ~ Signed [facility]04-30-2025 Discharge summary Author Fitz Deleon [facility] Note Date/Time March 13, 2025 11: 45pm [facility] Medical Records Department [address] [place] [address] Emergency Department Summary 03/13/25 MR#: [id number] Acct: [id number] Name: MISAEL MEDINA Rep #:[id number] : 1950 74 From: Fitz Espinosa PCP: Dr. Donal Castle MD Status:ADM IN Location: [place] [address] HPI History of Present Illness Chief Complaint: Abn Labs Informant: patient Onset/Context/Timing Onset: Yesterday Context: Gradual Onset Timing: Continuous Quality: Weakness Location: Generalized Worsened by: Nothing Relieved by: Nothing Narrative Narrative: Patient presents with abnormal labs that were noticed yesterday. Patient had anappoint with her 3rd mate yesterday who jeovanny labs. Patient states they called her today and told her to come to the emergency department because her potassium was high and her kidney function tests were worse. Patient states shefeels weak all over. Patient states nothing makes her symptoms better and nothing makes them worse. Patient admits to some shortness of breath. PFSH PFSH Medical History Congestive heart failure Hypothyroidism Osteoporosis Morbid obesity with BMI of 45.0-49.9, adult Wears glasses Post-menopausal Thyroid disease Diabetes Uses wheelchair Ambulates with cane Arthritis High cholesterol Back pain TIA (transient ischemic attack) Dietary restriction Non-smoker History of pain when walking History of transesophageal echocardiography (DESTIN) Cardiology follow-up encounter Hypertension Hypertension Diabetes Home Medications ?Medication ?Instructions ?Recorded ?Last Taken ?Type atorvastatin 10 mg tablet 10 mg PO QHS cholesterol 03/12/25 History levothyroxine 100 mcg tablet 100 mcg PO DAILY thyroid 08/31/22 03/13/25 History (Synthroid) aspirin 81 mg chewable tablet 81 mg PO DAILYCM 90 days #90 tabs 10/21/24 03/13/25 Rx carvedilol 6.25 mg tablet (Coreg) 6.25 mg PO BID #60 t abs 12/01/24 03/13/25 Rx dapagliflozin propanediol 10 mg 10 mg PO QDAY #30 tabs 03/12/25 Unknown Rx tablet (Farxiga) furosemide 40 mg tablet 40 mg PO QAM #30 tabs 03/13/25 Rx metformin 500 mg tablet 500 mg PO BID 03/12/2503/13 History Allergy/AdvReac Type Severity Reaction Status Date / Time No Known Allergies Allergy Verified 03/13/25 13:58 Family History Mother Hypertension Father Heart disease Surgical History Hx of colonoscopy Hx of cholecystectomy H/O: hysterectomy Social History household members: spouse Smoking Status: Never smoker alcohol intake: never substance use type: does not use caffeine: No ROS ROS ED Constitutional Constitutional ED: Denies chills or fever(s) Eyes Eyes: Denies blurry vision or change in vision ENT ENT ED: Denies rhinorrhea or sore throat Cardiovascular Cardiovascular: Denies chest pain or palpitations Respiratory/Chest Respiratory/Chest: Reports dyspnea; Denies cough Gastrointestinal Gastrointestinal: Denies nausea or vomiting Genitourinary Genitourinary ED: Denies dysuria or hematuria Musculoskeletal Musculoskeletal: Denies back pain or neck pain Integumentary Denies abscess or rash Neurologic Neurologic: Reports weakness; Denies headache(s) Allergic/Immunologic Allergic/Immunologic ED: Denies mouth swelling or urticaria EXAM Physical Exam Const Vital Signs: 03/13/25 13:58 03/13/25 15:46 03/13/25 16:00 Temperature 98.9 F Temperature Source Oral Pulse Rate 74 58 L Respiratory Rate 20 H 27 H Respiratory Effort Labored Blood Pressure 104/65 119/57 L Blood Pressure Mean 78 77 Pulse Ox 93 92 Oxygen Delivery Method Room Air Positive well nourished and well developed Constitutional Narrative: BMI is 51.0 General Appearance ED: well developed and NAD HEENT Reports dry mucous membranes Mouth ED: Yes dry mucous membranes Mouth: dry mucous membranes Neck supple and no JVD Resp normal respiratory effort Auscultation: diminished lung sounds bilateral lower Cardio regular rate and regular rhythm GI non-tender and non-distended Palpation: soft Extremity General Extremety ED: Yes edema; Negative for tenderness General Extremity: edema Neuro oriented x3, CN's II-XII intact bilaterally and no sensory deficits noted Motor Exam: strength 5/5 throughout Psych mental status grossly normal MDM MDM MDM Narrative Medical decision making narrative: Differential diagnosis includes acute kidney injury, electrolyte abnormality, cardiac dysrhythmia, cardiac ischemia, pneumonia, bronchitis congestive heart failure, and urinary tract infection. EKG will be obtained to assess for cardiac dysrhythmia and cardiac ischemia. Chest x-ray will be obtained to assess for pneumonia, congestive heart failure, pneumothorax. CBC will be obtained to assess for leukocytosis and anemia. Basic metabolic profile will beobtained to assess for electrolyte abnormality and renal function. Magnesium and phosphorus will bring obtained to assess for hypomagnesemia and hypophosphatemia. Urinalysis will be obtained to assess for urinary tract infection and hematuria. History & Record Review Additional record(s) reviewed:: Prior outpatient record and Prior labs Lab Data Attestation: I reviewed the patient's lab results. Lab results narrative: CBC was reviewed and was essentially within normal limits. Basic metabolic profile was reviewed. Potassium was elevated at 6.7. BUN was elevated at 88 and creatinine was 5.1. These are increased from patient's baseline. Phosphorus was reviewed and was elevated at 5.5. Magnesium was reviewed and waselevated 2.6. High-sensitivity troponin was reviewed and was elevated at 159. 2-hour repeat high-sensitivity troponin was reviewed and was elevated at 159. BNP was reviewed and was greater than 70,000. Labs: Laboratory Results - last 24 hr 03/13/25 03/13/25 15:11 17:30 WBC 7.7 RBC 4.33 Hgb 11.3 L Hct 38.7 MCV 89.4 MCH 26.1 L MCHC 29.2 L RDW Std Deviation 57.1 H RDW Coeff of Leif 17.4 H Plt Count 241 MPV 9.4 Immature Gran % (Auto) 0.600 Neut % (Auto) 79.2 H Lymph % (Auto) 11.5 L [place] % (Auto) 7.8 Eos % (Auto) 0.6 Baso % (Auto) 0.3 Absolute Neuts (auto) 6.1 Absolute Lymphs (auto) 0.89 Nucleated RBC % 1.9 Sodium 141 Potassium 6.7 H* Chloride 114 H Carbon Dioxide 16.6 L Anion Gap 11 BUN 88 H Creatinine 5.10 H Estim Creat Clear Calc 11.41 L Est GFR (MDRD) Non-Af 8 L BUN/Creatinine Ratio 17.3 Glucose 138 H Calcium 8.5 Phosphorus 5.5 H Magnesium 2.6 H Troponin T High Sens 159 H* Troponin T Hi Sens 2 Hr 159 H* [place] II > 86950 H Urine Color Yellow Urine Clarity Cloudy Urine pH 5.0 Ur Specific [place] 1.025 Urine Protein 100 H Urine Glucose (UA) Normal Urine Ketones Negative Urine Occult Blood 150 H Urine Nitrite Negative Urine Bilirubin 1 H Urine Urobilinogen Normal Ur Leukocyte Esterase 500 H Radiography Chest X-Ray - ED: 2 View, Read by ED Physician, Read by Radiologist and Right Effusion Diagnostic Testing: Clinical Impression(s) from Imaging Studies Chest X-Ray 03/13/25 16:45 IMPRESSION: 1. Limited hypoinflated exam. Cardiomegaly with central vascular prominence and at least ewalf-dr-gvvskftf RIGHT pleural effusion. 2. RIGHT-sided airspace disease adjacent to the effusion may reflect compressiveatelectasis and/or pneumonia. Follow-up to radiographic resolution recommended. 3. Additional description as above. Reading Location: [facility] PA and lateral chest x-ray was obtained. There are 2 views. On my independent interpretation, lung sharma show vascular prominence and small to moderate rightpleural effusion. There is poor inspiratory effort. There is normal cardiac silhouette. Bony thorax is normal. Radiologist also interpreted the x-ray and agrees. EKG Initial EKG: Attestation: I personally reviewed and interpreted this EKG as follows: Interpretation: Sinus Rhythm (73) and Non-Specific ST Changes Comments: EKG was obtained. On my independent interpretation, it showed anormal sinus rhythm with a rate of 73. IN interval, QRS interval, and QTc intervals were all normal. There is borderline right axis deviation at 117. There are nonspecific ST-T wave changes. Prior EKG tracings: available for review Prior: Unchanged (10/30/2024) Management Discussion w/another healthcare provider: Hospitalist and Kiss Machine Operator (Dr. Linares) Treatment and Re-Evaluation :: Patient was advised of her findings. Patient was given calcium chloride, insulin, and dextrose for her hyperkalemia. Case was discussed with Dr. Linares from cardiology. He recommended starting patient on a heparin drip. However, with her elevated BUN and creatinine, he did not recommend administering aspirin at this time. Case was discussed with the hospitalist. He will admit the patient to his service. Patient and spouse understand and areagreeable with the plan. All questions were answered. Discharge Plan Triage Chief Complaint: Abn Labs ED Provider: Fitz Deleon Dx/Rx/DC Orders Clinical Impression: Acute kidney injury superimposed on chronic kidney disease, Diabetes, Elevated troponin Prescriptions: No Action levothyroxine [Synthroid] 100 mcg tablet 100 mcg PO DAILY atorvastatin 10 mg tablet 10 mg PO QHS carvedilol [Coreg] 6.25 mg tablet 6.25 mg PO BID Qty: 60 11RF Rx Instructions: must administer with a meal/food metformin 500 mg tablet 500 mg PO BID furosemide 40 mg tablet 40 mg PO QAM Qty: 30 0RF dapagliflozin propanediol [Farxiga] 10 mg tablet 10 mg PO QDAY Qty: 30 3RF Patient Comments: PT HAS NOT PICKED UP YET aspirin 81 mg Tablet,Chewable 81 mg PO DAILYCM 90 Days Qty: 90 0RF Primary Care Provider: Donal Castle Referrals: Donal Castle MD [Primary Care Provider] - Print Language: [place] Disposition Disposition: Acute Care Hospital [facility] What to do if you have Problems For any increased pain, shortness of breath, bleeding, nausea or vomiting, chestpain, or any unexpected problems, contact your Primary Care Provider. Call [facility] ([phone]) or report to the closest Emergency Room. Call 911 if necessary. 03/13/252344 <Electronically signed by Fitz Deleon DO> Cosigner Signature (if applicable): CC: Dr. Donal Castle MD ~ Signed [facility] Work Phone: [phone]) [phone] Discharge summary [facility] Medical Records Department [address] [place] [address] Emergency Department Summary 03/13/25 MR#: [id number] Acct: [id number] Name: MISAEL MEDINA Rep #:[id number] : 1950 74 From: Fitz Espinosa PCP: Dr. Donal Castle MD Status:ADM IN Location: [place] [address] HPI History of Present Illness Chief Complaint: Abn Labs Informant: patient Onset/Context/Timing Onset: Yesterday Context: Gradual Onset Timing: Continuous Quality: Weakness Location: Generalized Worsened by: Nothing Relieved by: Nothing Narrative Narrative: Patient presents with abnormal labs that were noticed yesterday. Patient had anappoint with her 3rd mate yesterday who jeovanny labs. Patient states they called her today and told her to come to the emergency department because her potassium was high and her kidney function tests were worse. Patient states shefeels weak all over. Patient states nothing makes her symptoms better and nothing makes them worse. Patient admits to some shortness of breath. [facility] Medical History Congestive heart failure Hypothyroidism Osteoporosis Morbid obesity with BMI of 45.0-49.9, adult Wears glasses Post-menopausal Thyroid disease Diabetes Uses wheelchair Ambulates with cane Arthritis High cholesterol Back pain TIA (transient ischemic attack) Dietary restriction Non-smoker History of pain when walking History of transesophageal echocardiography (DESTIN) Cardiology follow-up encounter Hypertension Hypertension Diabetes Home Medications ?Medication ?Instructions ?Recorded ?Last Taken ?Type atorvastatin 10 mg tablet 10 mg PO QHS cholesterol 03/12/25 History levothyroxine 100 mcg tablet 100 mcg PO DAILY thyroid 08/31/22 03/13/25 History (Synthroid) aspirin 81 mg chewable tablet 81 mg PO DAILYCM 90 days #90 tabs 10/21/24 03/13/25 Rx carvedilol 6.25 mg tablet (Coreg) 6.25 mg PO BID #60 t abs 12/01/24 03/13/25 Rx dapagliflozin propanediol 10 mg 10 mg PO QDAY #30 tabs 03/12/25 Unknown Rx tablet (Farxiga) furosemide 40 mg tablet 40 mg PO QAM #30 tabs 03/13/25 Rx metformin 500 mg tablet 500 mg PO BID 03/12/2503/13 History Allergy/AdvReac Type Severity Reaction Status Date / Time No Known Allergies Allergy Verified 03/13/25 13:58 Family History Mother Hypertension Father Heart disease Surgical History Hx of colonoscopy Hx of cholecystectomy H/O: hysterectomy Social History household members: spouse Smoking Status: Never smoker alcohol intake: never substance use type: does not use caffeine: No ROS ROS ED Constitutional Constitutional ED: Denies chills or fever(s) Eyes Eyes: Denies blurry vision or change in vision ENT ENT ED: Denies rhinorrhea or sore throat Cardiovascular Cardiovascular: Denies chest pain or palpitations Respiratory/Chest Respiratory/Chest: Reports dyspnea; Denies cough Gastrointestinal Gastrointestinal: Denies nausea or vomiting Genitourinary Genitourinary ED: Denies dysuria or hematuria Musculoskeletal Musculoskeletal: Denies back pain or neck pain Integumentary Denies abscess or rash Neurologic Neurologic: Reports weakness; Denies headache(s) Allergic/Immunologic Allergic/Immunologic ED: Denies mouth swelling or urticaria EXAM Physical Exam Const Vital Signs: 03/13/25 13:58 03/13/25 15:46 03/13/25 16:00 Temperature 98.9 F Temperature Source Oral Pulse Rate 74 58 L Respiratory Rate 20 H 27 H Respiratory Effort Labored Blood Pressure 104/65 119/57 L Blood Pressure Mean 78 77 Pulse Ox 93 92 Oxygen Delivery Method Room Air Positive well nourished and well developed Constitutional Narrative: BMI is 51.0 General Appearance ED: well developed and NAD HEENT Reports dry mucous membranes Mouth ED: Yes dry mucous membranes Mouth: dry mucous membranes Neck supple and no JVD Resp normal respiratory effort Auscultation: diminished lung sounds bilateral lower Cardio regular rate and regular rhythm GI non-tender and non-distended Palpation: soft Extremity General Extremety ED: Yes edema; Negative for tenderness General Extremity: edema Neuro oriented x3, CN's II-XII intact bilaterally and no sensory deficits noted Motor Exam: strength 5/5 throughout Psych mental status grossly normal MDM MDM MDM Narrative Medical decision making narrative: Differential diagnosis includes acute kidney injury, electrolyte abnormality, cardiac dysrhythmia, cardiac ischemia, pneumonia, bronchitis congestive heart failure, and urinary tract infection. EKG will be obtained to assess for cardiac dysrhythmia and cardiac ischemia. Chest x-ray will be obtainedto assess for pneumonia, congestive heart failure, pneumothorax. CBC will be obtained to assess forleukocytosis and anemia. Basic metabolic profile will beobtained to assess for electrolyte abnormality and renal function. Magnesium and phosphorus will bring obtained to assess for hypomagnesemia and hypophosphatemia. Urinalysis will be obtained to assess for urinary tract infection and hematuria. History & Record Review Additional record(s) reviewed:: Prior outpatient record and Prior labs Lab Data Attestation: I reviewed the patient's lab results. Lab results narrative: CBC was reviewed and was essentially within normal limits. Basic metabolic profile was reviewed. Potassium was elevated at 6.7. BUN was elevated at 88 and creatinine was 5.1. These are increased frompatient's baseline. Phosphorus was reviewed and was elevated at 5.5. Magnesium was reviewed and waselevated 2.6. High-sensitivity troponin was reviewed and was elevated at 159. 2-hour repeat high-sensitivity troponin was reviewed and was elevated at 159. BNP was reviewed and was greater than 70,000. Labs: Laboratory Results - last 24 hr 03/13/25 03/13/25 15:11 17:30 WBC 7.7 RBC 4.33 Hgb 11.3 L Hct 38.7 MCV 89.4 MCH 26.1 L MCHC 29.2 L RDW Std Deviation 57.1 H RDW Coeff of Leif 17.4 H Plt Count 241 MPV 9.4 Immature Gran % (Auto) 0.600 Neut % (Auto) 79.2 H Lymph % (Auto) 11.5 L [place] % (Auto) 7.8 Eos % (Auto) 0.6 Baso % (Auto) 0.3 Absolute Neuts (auto) 6.1 Absolute Lymphs (auto) 0.89 Nucleated RBC % 1.9 Sodium 141 Potassium 6.7 H* Chloride 114 H Carbon Dioxide 16.6 L Anion Gap 11 BUN 88 H Creatinine 5.10 H Estim Creat Clear Calc 11.41 L Est GFR (MDRD) Non-Af 8 L BUN/Creatinine Ratio 17.3 Glucose 138 H Calcium 8.5 Phosphorus 5.5 H Magnesium 2.6 H Troponin T High Sens 159 H* Troponin T Hi Sens 2 Hr 159 H* [place] II > 17781 H Urine Color Yellow Urine Clarity Cloudy Urine pH 5.0 Ur Specific [place] 1.025 Urine Protein 100 H Urine Glucose (UA) Normal Urine Ketones Negative Urine Occult Blood 150 H Urine Nitrite Negative Urine Bilirubin 1 H Urine Urobilinogen Normal Ur Leukocyte Esterase 500 H Radiography Chest X-Ray - ED: 2 View, Read by ED Physician, Read by Radiologist and Right Effusion Diagnostic Testing: Clinical Impression(s) from Imaging Studies Chest X-Ray 03/13/25 16:45 IMPRESSION: 1. Limited hypoinflated exam. Cardiomegaly with central vascular prominence and at least [id number] RIGHT pleural effusion. 2. RIGHT-sided airspace disease adjacent to the effusion may reflect compressiveatelectasis and/or pneumonia. Follow-up to radiographic resolution recommended. 3. Additional description as above. Reading Location: [id number] and lateral chest x-ray was obtained. There are 2 views. On my independent interpretation, lung sharma show vascular prominence and small to moderate rightpleural effusion. There is poor inspiratory effort. There is normal cardiac silhouette. Bony thorax is normal. Radiologist also interpreted the x-ray and agrees. EKG Initial EKG: Attestation: I personally reviewed and interpreted this EKG as follows: Interpretation: Sinus Rhythm (73) and Non-Specific ST Changes Comments: EKG was obtained. On my independent interpretation, it showed anormal sinus rhythm with arate of 73. IN interval, QRS interval, and QTc intervals were all normal. There is borderline rightaxis deviation at 117. There are nonspecific ST-T wave changes. Prior EKG tracings: available for review Prior: Unchanged (10/30/2024) Management Discussion w/another healthcare provider: Hospitalist and Kiss Machine Operator (Dr. Linares) Treatment and Re-Evaluation :: Patient was advised of her findings. Patient was given calcium chloride, insulin, and dextrose for her hyperkalemia. Case was discussed with Dr. Linares from cardiology. He recommended starting patient on a heparin drip. However, with her elevated BUN and creatinine, he did not recommend administe ring aspirin at this time. Case was discussed with the hospitalist. He will admit the patient to his service. Patient and spouse understand and areagreeable with the plan. All questions were answered. Discharge Plan Triage Chief Complaint: Abn Labs ED Provider: Fitz Deleon Dx/Rx/DC Orders Clinical Impression: Acute kidney injury superimposed on chronic kidney disease, Diabetes, Elevated troponin Prescriptions: No Action levothyroxine [Synthroid] 100 mcg tablet 100 mcg PO DAILY atorvastatin 10 mg tablet 10 mg PO QHS carvedilol [Coreg] 6.25 mg tablet 6.25 mg PO BID Qty: 60 11RF Rx Instructions: must administer with a meal/food metformin 500 mg tablet 500 mg PO BID furosemide 40 mg tablet 40 mg PO QAM Qty: 30 0RF dapagliflozin propanediol [Farxiga] 10 mg tablet 10 mg PO QDAY Qty: 30 3RF Patient Comments: PT HAS NOT PICKED UP YET aspirin 81 mg Tablet,Chewable 81 mg PO DAILYCM 90 Days Qty: 90 0RF Primary Care Provider: Donal Castle Referrals: Donal Castle MD [Primary Care Provider] - Print Language: [place] Disposition Disposition: Acute Care Hospital [facility] What to do if you have Problems For any increased pain, shortness of breath, bleeding, nausea or vomiting, chestpain, or any unexpected problems, contact your Primary Care Provider. Call [facility] ([phone]) or report tothe closest Emergency Room. Call 911 if necessary. 03/13/25 7666 Cosigner Signature (if applicable): CC: Dr. Donal Castle MD ~ Signed [facility]04-29-2025 History and physical note Author Milton Muñoz [facility] Note Date/Time March 13, 2025 7:1 0pm [facility] Medical Records Department [address] [place] [address] H&P Exam - Hospitalist 03/13/25 1839 MR#: [id number] Acct: [id number] Name: MISAEL MEDINA Rep #:[id number] 65 : 1950 74 From: Milton harper MD PCP: Dr. Donal Castle MD Status:ADM IN Location: [place] [address] HPI - General General Date of Admission: 03/13/25 HPI Narrative MISAEL MEDINA, is a 74 F who presents to the hospital with fatigue and abnormal labs. She states that over the last month she has not been feeling great and has not been eating very well, she had an appointment with cardiology yesterday because of her systolic cardiomyopathy and obtained lab work and called her today send she did present to the ER. She had acute renal failure yesterday her creatinine was 4.48 and her new baseline since her last admission in October is around 1.6-1.7, today in the ER her creatinine is 5.1. It is challenging to discern whether this is intrinsically renal or prerenal, she doesnot look significantly volume overloaded though she still has peripheral edema but she thinks it looks better than it normally does. Yesterday she was increased to 40 mg of Lasix and she had taken it yesterday however this morning she has not taken any Lasix. She denies any lightheadedness or dizziness, no chest pain, her proBNP is elevated to greater than 70,000 but she was not all that hypoxic in the ER and she is not feeling short of breath, though she does have a small to moderate right pleural effusion on chest x-ray, also her initialtroponin was 159 but her second troponin 2 hours later was also 159 and given the lack of anginal symptoms we will hold off on a heparin drip but will consultcardiology for assistance on the inpatient side. She denies any nausea, or vomiting, or diarrhea. [facility] Medical History Congestive heart failure Hypothyroidism Osteoporosis Morbid obesity with BMI of 45.0-49.9, adult Wears glasses Post-menopausal Thyroid disease Diabetes Uses wheelchair Ambulates with cane Arthritis High cholesterol Back pain TIA (transient ischemic attack) Dietary restriction Non-smoker History of pain when walking History of transesophageal echocardiography (DESTIN) Cardiology follow-up encounter Hypertension Hypertension Diabetes Home Medications ?Medication ?Instructions ?Recorded ?Last Taken ?Type atorvastatin 10 mg tablet 10 mg PO QHS cholesterol 03/12/25 History levothyroxine 100 mcg tablet 100 mcg PO DAILY thyroid 08/31/22 03/13/25 History (Synthroid) aspirin 81 mg chewable tablet 81 mg PO DAILYCM 90 days #90 tabs 10/21/24 03/13/25 Rx carvedilol 6.25 mg tablet (Coreg) 6.25 mg PO BID #60 t abs 12/01/24 03/13/25 Rx dapagliflozin propanediol 10 mg 10 mg PO QDAY #30 tabs 03/12/25 Unknown Rx tablet (Farxiga) furosemide 40 mg tablet 40 mg PO QAM #30 tabs 03/13/25 Rx metformin 500 mg tablet 500 mg PO BID 03/12/2503/13 History Allergy/AdvReac Type Severity Reaction Status Date / Time No Known Allergies Allergy Verified 03/13/25 13:58 Family History Mother Hypertension Father Heart disease Surgical History Hx of colonoscopy Hx of cholecystectomy H/O: hysterectomy Social History household members: spouse Smoking Status: Never smoker alcohol intake: never substance use type: does not use caffeine: No ROS Constitutional Constitutional: Reports fatigue and malaise; Denies chills or fever(s) Eyes Eyes: Denies blurry vision ENT HEENT: Denies headache(s) or nasal discharge Cardiovascular Cardiovascular: Denies chest pain, dyspnea on exertion or syncope Respiratory/Chest Respiratory/Chest: Denies cough, shortness of breath at rest or shortness of breath with exertion Gastrointestinal Gastrointestinal: Denies constipation, diarrhea, nausea or vomiting Genitourinary Genitourinary: Denies dysuria Neurologic Neurologic: Denies focal weakness, numbness or tremor(s) Psychiatric Psychiatric: Denies anxiety or depression Vital Signs Vital Signs Vital Signs: 03/13/25 13:58 03/13/25 15:46 03/13/25 16:00 Temperature 98.9 F Temperature Source Oral Pulse Rate 74 58 L Respiratory Rate 20 H 27 H Respiratory Effort Labored Blood Pressure 104/65 119/57 L Blood Pressure Mean 78 77 Pulse Ox 93 92 Oxygen Delivery Method Room Air Oxygen Flow Rate (L/min) 03/13/25 17:48 03/13/25 18:18 03/13/25 18:20 Temperature Temperature Source Pulse Rate 63 Respiratory Rate 20 H Respiratory Effort Blood Pressure 129/70 H Blood Pressure Mean 89 Pulse Ox 87 96 96 Oxygen Delivery Method Room Air Nasal Cannula Nasal Cannula Oxygen Flow Rate (L/min) 2 2 Weight Weight: 261 lb 3.2 oz Body Mass Index (BMI) 51.0 Physical Exam Narrative General: Alert, Oriented x3, Cooperative, No apparent distress HEENT: Atraumatic, PERRLA, EOMI, Normocephalic Oral: Dry mucosa Neck: Supple, No JVD Lungs: Diminished, Normal air movement, No rhonchi, No wheeze, No rales Cardiovascular: Regular rate, Regular Rhythm, Normal S1, Normal S2, No murmurs Abdomen: Soft, Non Tender, Non-Distended, No Hepato-splenomegaly Extremities: Edema, Capillary Refill Less than 3 Seconds Skin: No rashes, No breakdown Musculoskeletal: No Tenderness to Palpation of Joints or Extremities Neurological: No focal neurological deficits, moves all extremities, sensations intact Psych/Mental Status: Normal Affect, Appropriate Results Lab / Micro Data 03/13/25 15:11 03/13/25 15:11 Labs: Laboratory Results - last 24 hr 03/13/25 15:11: WBC 7.7, RBC 4.33, Hgb 11.3 L, Hct 38.7, MCV 89.4, MCH 26.1 L, MCHC 29.2 L, RDW Std Deviation 57.1 H, RDW Coeff of Leif 17.4 H, Plt Count 241, MPV 9.4, Immature Gran % (Auto) 0.600, Neut % (Auto) 79.2 H, Lymph % (Auto) 11.5L, [place] % (Auto) 7.8, Eos % (Auto) 0.6, Baso % (Auto) 0.3, Absolute Neuts (auto)6.1, Absolute Lymphs (auto) 0.89, Nucleated RBC % 1.9, Sodium 141, Potassium 6.7H*, Chloride 114 H, Carbon Dioxide 16.6 L, Anion Gap 11, BUN 88 H, Creatinine 5.10 H, Estim Creat Clear Calc 11.41 L, Est GFR (MDRD) Non-Af 8 L, BUN/Creatinine Ratio 17.3, Glucose 138 H, Calcium 8.5, Phosphorus 5.5 H, Magnesium 2.6 H, Troponin T High Sens 159 H*, [place] II > [address] H 03/13/25 17:30: Troponin T Hi Sens 2 Hr 159 H*, Urine Color Yellow, Urine Clarity Cloudy, Urine pH 5.0, Ur Specific [place] 1.025, Urine Protein 100 H, Urine Glucose (UA) Normal, Urine Ketones Negative, Urine Occult Blood 150 H, Urine Nitrite Negative, Urine Bilirubin 1 H, Urine Urobilinogen Normal, Ur Leukocyte Esterase 500 H, Urine RBC 5-10 SEEN, Urine WBC 50-100 SEEN, Ur Squamous Epith Cells 10-25 SEEN, Ur Transition Epith Cell 0-5 SEEN, Urine Bacteria 4+, Urine Mucus 0 SEEN 03/13/25 18:21: POC Glucose 234 H Imaging Radiology Impression Chest X-Ray 03/13/25 16:45 IMPRESSION: 1. Limited hypoinflated exam. Cardiomegaly with central vascular prominence and at least [id number] RIGHT pleural effusion. 2. RIGHT-sided airspace disease adjacent to the effusion may reflect compressiveatelectasis and/or pneumonia. Follow-up to radiographic resolution recommended. 3. Additional description as above. Reading Location: [facility] Assessment & Plan Assessment/Plan (1) Acute kidney injury superimposed on chronic kidney disease: PLAN: Plan 1. Acute renal failure/UTI ? It is unclear at this time as to the etiology, urine electrolytes as well as urine and serum osmolality are pending, also obtain a urine urea given the fact that she is on diuretics ? Will consult nephrology ? Pending further labs will hold off of any IV fluids will also hold off on diuretics, I do believe that her proBNP is elevated secondary to her acute renalfailure as are her elevated troponins ? She does have a baseline creatinine of 1.6-1.7 ? UA is also somewhat consistent with UTI though it is a little bit of a dirty sample she was given a dose of Rocephin in the ER, will continue her on the inpatient side pending urine culture 2. Chronic systolic CHF with pulmonary hypertension/essential HTN/HLD ? Currently unclear whether or not she is having a CHF exacerbation, she states that her swelling is less and her mucosas are little dry ? Will hold off of diuretics but can resume her Coreg and her aspirin ? She is supposed to be on dapagliflozin however she has not started this medication yet, will not start now with her renal failure ? I do think that her troponin elevation is related to her renal failure and I discussed with cardiology who will see her on consult, about holding off on any heparin drips as she is not having any chest pain or anginal equivalents at thistime 3. DM2 ? Will hold her metformin ? Will place her on sign scale insulin ? Accu-Cheks ACHS ? Monitor make adjustments as necessary DVT: Heparin 76 minutes was spent on direct patient care, including documentation as well as chart review and collaboration with colleagues Charges/Coding Visit Charges Inpatient E&M: 07103 Init Hosp L3 03/13/251909 <Electronically signed by Milton Muñoz MD> Cosigner Signature (if applicable): CC: Dr. Donal Castle MD; Dr. Milton Muñoz MD~ Signed [facility] Work Phone: 1(154) 670-215804-29-2025 History and physical note [facility] Medical Records Department [address] [place] [address] H&P Exam - Hospitalist 03/13/25 1839 MR#: [id number] Acct: [id number] Name: MISAEL MEDINA Rep #:[id number] 65 : 1950 74 From: Milton harper MD PCP: Dr. Donal Castle MD Status:ADM IN Location: [place] [address] HPI - General General Date of Admission: 03/13/25 HPI Narrative MISAEL MEDINA, is a 74 F who presents to the hospital with fatigue and abnormal labs. She statesthat over the last month she has not been feeling great and has not been eating very well, she had an appointment with cardiology yesterday because of her systolic cardiomyopathy and obtained lab work and called her today send she did present to the ER. She had acute renal failure yesterday her creatinine was 4.48 and her new baseline since her last admission in October is around 1.6-1.7, today in the ER her creatinine is 5.1. It is challenging to discern whether this is intrinsically renal orprerenal, she doesnot look significantly volume overloaded though she still has peripheral edema but she thinks it looks better than it normally does. Yesterday she was increased to 40 mg of Lasix and she had taken it yesterday however this morning she has not taken any Lasix. She denies any lightheadedness or dizziness, no chest pain, her proBNP is elevated to greater than 70,000 but she was notall that hypoxic in the ER and she is not feeling short of breath, though she does have a small to moderate right pleural effusion on chest x-ray, also her initialtroponin was 159 but her second troponin 2 hours later was also 159 and given the lack of anginal symptoms we will hold off on a heparindrip but will consultcardiology for assistance on the inpatient side. She denies any nausea, or vomiting, or diarrhea. [facility] Medical History Congestive heart failure Hypothyroidism Osteoporosis Morbid obesity with BMI of 45.0-49.9, adult Wears glasses Post-menopausal Thyroid disease Diabetes Uses wheelchair Ambulates with cane Arthritis High cholesterol Back pain TIA (transient ischemic attack) Dietary restriction Non-smoker History of pain when walking History of transesophageal echocardiography (DESTIN) Cardiology follow-up encounter Hypertension Hypertension Diabetes Home Medications ?Medication ?Instructions ?Recorded ?Last Taken ?Type atorvastatin 10 mg tablet 10 mg PO QHS cholesterol 03/12/25 History levothyroxine 100 mcg tablet 100 mcg PO DAILY thyroid 08/31/22 03/13/25 History (Synthroid) aspirin 81 mg chewable tablet 81 mg PO DAILYCM 90 days #90 tabs 10/21/24 03/13/25 Rx carvedilol 6.25 mg tablet (Coreg) 6.25 mg PO BID #60 t abs 12/01/24 03/13/25 Rx dapagliflozin propanediol 10 mg 10 mg PO QDAY #30 tabs 03/12/25 Unknown Rx tablet (Farxiga) furosemide 40 mg tablet 40 mg PO QAM #30 tabs 03/13/25 Rx metformin 500 mg tablet 500 mg PO BID 03/12/2503/13 History Allergy/AdvReac Type Severity Reaction Status Date / Time No Known Allergies Allergy Verified 03/13/25 13:58 Family History Mother Hypertension Father Heart disease Surgical History Hx of colonoscopy Hx of cholecystectomy H/O: hysterectomy Social History household members: spouse Smoking Status: Never smoker alcohol intake: never substance use type: does not use caffeine: No ROS Constitutional Constitutional: Reports fatigue and malaise; Denies chills or fever(s) Eyes Eyes: Denies blurry vision ENT HEENT: Denies headache(s) or nasal discharge Cardiovascular Cardiovascular: Denies chest pain, dyspnea on exertion or syncope Respiratory/Chest Respiratory/Chest: Denies cough, shortness of breath at rest or shortness of breath with exertion Gastrointestinal Gastrointestinal: Denies constipation, diarrhea, nausea or vomiting Genitourinary Genitourinary: Denies dysuria Neurologic Neurologic: Denies focal weakness, numbness or tremor(s) Psychiatric Psychiatric: Denies anxiety or depression Vital Signs Vital Signs Vital Signs: 03/13/25 13:58 03/13/25 15:46 03/13/25 16:00 Temperature 98.9 F Temperature Source Oral Pulse Rate 74 58 L Respiratory Rate 20 H 27 H Respiratory Effort Labored Blood Pressure 104/65 119/57 L Blood Pressure Mean 78 77 Pulse Ox 93 92 Oxygen Delivery Method Room Air Oxygen Flow Rate (L/min) 03/13/25 17:48 03/13/25 18:18 03/13/25 18:20 Temperature Temperature Source Pulse Rate 63 Respiratory Rate 20 H Respiratory Effort Blood Pressure 129/70 H Blood Pressure Mean 89 Pulse Ox 87 96 96 Oxygen Delivery Method Room Air Nasal Cannula Nasal Cannula Oxygen Flow Rate (L/min) 2 2 Weight Weight: 261 lb 3.2 oz Body Mass Index (BMI) 51.0 Physical Exam Narrative General: Alert, Oriented x3, Cooperative, No apparent distress HEENT: Atraumatic, PERRLA, EOMI, Normocephalic Oral: Dry mucosa Neck: Supple, No JVD Lungs: Diminished, Normal air movement, No rhonchi, No wheeze, No rales Cardiovascular: Regular rate, Regular Rhythm, Normal S1, Normal S2, No murmurs Abdomen: Soft, Non Tender, Non-Distended, No Hepato-splenomegaly Extremities: Edema, Capillary Refill Less than 3 Seconds Skin: No rashes, No breakdown Musculoskeletal: No Tenderness to Palpation of Joints or Extremities Neurological: No focal neurological deficits, moves all extremities, sensations intact Psych/Mental Status: Normal Affect, Appropriate Results Lab / Micro Data 03/13/25 15:11 03/13/25 15:11 Labs: Laboratory Results - last 24 hr 03/13/25 15:11: WBC 7.7, RBC 4.33, Hgb 11.3 L, Hct 38.7, MCV 89.4, MCH 26.1 L, MCHC 29.2 L, RDW StdDeviation 57.1 H, RDW Coeff of Leif 17.4 H, Plt Count 241, MPV 9.4, Immature Gran % (Auto) 0.600, Neut % (Auto) 79.2 H, Lymph % (Auto) 11.5L, [place] % (Auto) 7.8, Eos % (Auto) 0.6, Baso % (Auto) 0.3, Absolute Neuts (auto)6.1, Absolute Lymphs (auto) 0.89, Nucleated RBC % 1.9, Sodium 141, Potassium 6.7H*, Chloride 114 H, Carbon Dioxide 16.6 L, Anion Gap 11, BUN 88 H, Creatinine 5.10 H, Estim Creat Clear Calc 11.41 L, Est GFR (MDRD) Non-Af 8 L, BUN/Creatinine Ratio 17.3, Glucose 138 H, Calcium 8.5, Phosphorus 5.5 H, Magnesium 2.6 H, Troponin T High Sens 159 H*, [place] BNP II > 0[address]42 H 03/13/25 17:30: Troponin T Hi Sens 2 Hr 159 H*, Urine Color Yellow, Urine Clarity Cloudy, Urine pH 5.0, Ur Specific [place] 1.025, Urine Protein 100 H, Urine Glucose (UA) Normal, Urine Ketones Negative, Urine Occult Blood 150 H, Urine Nitrite Negative, Urine Bilirubin 1 H, Urine Urobilinogen Normal, Ur Leukocyte Esterase 500 H, Urine RBC 5-10 SEEN, Urine WBC 50-100 SEEN, Ur Squamous Epith Cells 10-25 SEEN, Ur Transition Epith Cell 0-5 SEEN, Urine Bacteria 4+, Urine Mucus 0 SEEN 03/13/25 18:21: POC Glucose 234 H Imaging Radiology Impression Chest X-Ray 03/13/25 16:45 IMPRESSION: 1. Limited hypoinflated exam. Cardiomegaly with central vascular prominence and at least kpxuz-bs-hfokrehg RIGHT pleural effusion. 2. RIGHT-sided airspace disease adjacent to the effusion may reflect compressiveatelectasis and/or pneumonia. Follow-up to radiographic resolution recommended. 3. Additional description as above. Reading Location: [facility] Assessment & Plan Assessment/Plan (1) Acute kidney injury superimposed on chronic kidney disease: PLAN: Plan 1. Acute renal failure/UTI ? It is unclear at this time as to the etiology, urine electrolytes as well as urine and serum osmolality are pending, also obtain a urine urea given the fact that she is on diuretics ? Will consult nephrology ? Pending further labs will hold off of any IV fluids will also hold off on diuretics, I do believethat her proBNP is elevated secondary to her acute renalfailure as are her elevated troponins ? She does have a baseline creatinine of 1.6-1.7 ? UA is also somewhat consistent with UTI though it is a little bit of a dirty sample she was givena dose of Rocephin in the ER, will continue her on the inpatient side pending urine culture 2. Chronic systolic CHF with pulmonary hypertension/essential HTN/HLD ? Currently unclear whether or not she is having a CHF exacerbation, she states that her swelling is less and her mucosas are little dry ? Will hold off of diuretics but can resume her Coreg and her aspirin ? She is supposed to be on dapagliflozin however she has not started this medication yet, will not start now with her renal failure ? I do think that her troponin elevation is related to her renal failure and I discussed with cardiology who will see her on consult, about holding off on any heparin drips as she is not having any chest pain or anginal equivalents at thistime 3. DM2 ? Will hold her metformin ? Will place her on sign scale insulin ? Accu-Cheks ACHS ? Monitor make adjustments as necessary DVT: Heparin 76 minutes was spent on direct patient care, including documentation as well as chart review and collaboration with colleagues Charges/Coding Visit Charges Inpatient E&M: 34215 Init Hosp L3 03/13/25 191 Cosigner Signature (if applicable): CC: Dr. Donal Castle MD; Dr. Milton Muñoz MD~ Signed [facility]04-29-2025 Radiology Diagnostic study note [facility] Imaging Services [address] [place] [address] Chest PA and Lateral MR#: [id number] Acct: [id number] Name: MISAEL MEDINA Rep #: [id number] : 1950 F 74 From: Madeleine Christiansen MD PCP: Dr. Donal Castle MD Status: REG ER Study:Chest PA and Lateral Date of Exam: 03/13/25 Exam# [id number] Ordering Dr: Fitz Deleon DO PROCEDURE: CHEST PA AND LATERAL (RADCXR), 03/13/2025 REASON FOR EXAM: DYSPNEA TECHNIQUE: PA and lateral views of the chest were obtained. COMPARISON: 11/02/2024 and prior FINDINGS: Exam limited by hypoinflation and soft tissue attenuation. Heart: partially obscured, grossly similar cardiomegaly. Mediastinum: Partially obscured. Grossly similar contours. Trace atherosclerosis in the arch. Central vascular prominence suspected. Lungs/pleura: Hypoinflation with vascular crowding. At least duwbi-et-[id number] RIGHT pleural effusion with fluid extending into the fissures. Adjacent RIGHT mid and lower lung airspace disease. No sizable LEFT pleural or visible pneumothorax. Bones: Suspect demineralization.. Lines and support devices: None. Other: None. RAD/Chest PA and Lateral IMPRESSION: 1. Limited hypoinflated exam. Cardiomegaly with central vascular prominence and at least qzocg-kk-sgnykgzl RIGHT pleural effusion. 2. RIGHT-sided airspace disease adjacent to the effusion may reflect compressiveatelectasis and/or pneumonia. Follow-up to radiographic resolution recommended. 3. Additional description as above. Reading Location: [id number] CC: Dr. Donal Castle MD; Dr. Fitz Deleon, DO ~ Deal Architect: Signed [facility]04-28-2025 Evaluation note* Diagnosis Onset Date Resolution Status Admit Date Aortic valve stenosis inactive Feb 1:02pm Congestive heart failure inactive March 12, 2025 1:02pm High cholesterol inactive March 122024 1:02pm Hypertension inactive March 12, 2025 1:02pm Chronic renal disease, stage 3, moderately decreased glomerular filtration deleted March 12, 2025 1:02pm Ecchymosis acute March 13 6:27pm Acute kidney injury superimp osed on chronic kidney disease resolved March 13, 2025 6:27pm Acute on chronic renal failure resol tati March 13, 2025 6:27pm Hyperkalemia resolved March 13, 2025 6:27pm 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 resolved March 13 6:27pm Other acute osteomyelitis, r ight ankle and foot resolved March 13, 2025 6:27pm Right hallux osteomyelitis resolved March 13, 2025 6:27pm Aortic valve stenosis inactive Feb 6:27pm Congestive heart failure inactive March 13, 2025 6:27pm Hypertension inactive March 13, 2025 6:27pm Pulmonary hypertension inactive Ap ril 2024 6:27pm Type 2 diabetes mellitus wit h diabetic polyneuropathy inactive March 132024 6:27pm Chronic renal disease, stage 3, moderately decreased glomerular filtration deleted March 13, 2025 6:27pm [employer] Work Phone: [phone] 328-851704-28-2025 Evaluation note* Diagnosis Onset Date Resolution Status Admit Date Aortic valve stenosis acute Apr 2024 1:02pm Congestive heart failure acute March 12, 2025 1:02pm Hypertension chronic March 12, 2025 1:02pm High cholesterol inactive March 122024 1:02pm Chronic renal disease, stage 3, moderately decreased glomerular filtration deleted March 12, 2025 1:02pm Aortic valve stenosis acute Apr 2024 6:27pm Congestive heart failure acute March 13, 2025 6:27pm Ecchymosis acute March 13 6:27pm Hypertension chronic March 13, 2025 6:27pm Acute kidney injury superimp osed on chronic kidney disease resolved March 13, 2025 6:27pm Acute on chronic renal failure resol tati March 13, 2025 6:27pm Hyperkalemia resolved March 13, 2025 6:27pm 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 resolved March 13 6:27pm Other acute osteomyelitis, r ight ankle and foot resolved March 13, 2025 6:27pm Right hallux osteomyelitis resolved March 13, 2025 6:27pm Pulmonary hypertension inactive Ap 2024 6:27pm Type 2 diabetes mellitus wit h diabetic polyneuropathy inactive March 132024 6:27pm Chronic renal disease, stage 3, moderately decreased glomerular filtration deleted March 13, 2025 6:27pm Acute kidney failure acute April 04, 2025 11:32am Aortic valve stenosis acute April 04, 2025 11:32am Congestive heart failure acute April 04, 2025 11:32am Hyperlipidemia acute April 04, 2025 11:32am Hypertension chronic April 04 11:32am Acute kidney failure acute May 16, 2025 11:31am Aortic valve stenosis acute May 11:31am Congestive heart failure acute May 16, 2025 11:31am Hyperlipidemia acute May 16, 2025 11:31am Hypertension chronic May 16 11:31am [employer] Work Phone: 1(256) 475-660304-03-2025 NoteDate of Procedure 02/15/2025 [place] Protocol Safety Checklist Sign In: A moment to CARE completed, Special equipment verified, Appropriate PPE verified, Patient name, date of , allergies and intended procedure verified. Provider Confirms: Correct side/site marked visible, Consent documented and matches the intended procedure, Intended patient and procedure match the source document. Relevant labs, photos, and/or imaging studies have been reviewed. Medications required for procedure verified. Fire risk assessed and interventions discussed. No implants. Anesthesia 0.5 mL subconjunctival injection of 2% Lidocaine, 1-2 drops Topical 0.5% Proparacaine. Prep 5% Betadine. Injection Administration Medication: 1.25 mg bevacizumab (Oralia's) 2.75 mg/0.11 mL Route: INTRAVITREAL, Site: Right Balance Wasted Residual medication less than 1 unit was discarded. Anterior Chamber Paracentesis No. Post Injection Evaluation Patient has at least hand motion vision. Post Procedure Medications None. Home Going Prescription None. Sign Out Sign out discussion completed, All instruments, equipment, and/or possible retained foreign bodies accounted for, Post-procedure follow up management communicated. No specimens.[facility]04-03-[facility] Instructions* Patient Instructions* Sergo Chirinos MD, PhD - 02/15/2025 1:28 PM EDT Post Injection Patient Information You had eye injection(s) today. These are your after injection instructions. Today: Preservative free artificial tears 1 drop every hour while awake as needed Tomorrow: Preservative free artificial tears 1 drop every 2 hours while awake as needed Care instructions after eye injections: Do not rub or touch your eye other than dabbing lightly with a tissue An ikdq-jyp-mftolyq pain reliever (i.e. Tylenol) can be used for mild soreness Use artificial tears/lubricating drops once an hour as needed for comfort (chill the tears in the refrigerator for more comfort). If you are using the tears more than 4 times a day they need to be the preservative free kind Warm or cool compresses are okay It is okay to shower and wash your face. No swimming pools or saunas for 24 hours COMMON symptoms after successful eye injections: Mild to moderate pain or irritation beginning the day of the injection. This should begin to improve the following day. Eyelash in the eye or hiram/gritty sensation Tearing Mild floaters or bubbles in your vision - usually resolves after 1-2 days Bloody tears for 1-2 days after treatment Eye Redness Also known as subconjunctival hemorrhage This bruise can cover the entire white part of the eye and may last a few weeks CONCERNING symptoms after eye injections: Severe, constant pain Worsening pain after the first day Decreased vision Severe, constant floaters Curtain or veil in your vision New eye redness that was not there after the injection and covers the whole eye Please call the office immediately for any of the above listed concerning symptoms or with any other questions. If it is after hours please call [phone] which will give instructions on how to reach the eye doctor concrete spreader documented in this encounterPrem[facility] NoteDate of Procedure 02/15/2025. Interpretation Right Eye Findings include Enlarged ELLIOT, Vascular Remodeling. Left Eye Findings include Enlarged ELLIOT, Nonperfusion (Superficial Plexus), Nonperfusion (Deep Plexus), Vascular Remodeling.[id number] NoteDate of Procedure 02/15/2025. OCT Macula Interpretation Right Eye Normal without fluid. Left Eye Abnormal foveal contour. Findings include Atrophy.[id number] NoteHNO ID: [id number] Author: SERGO CHIRINOS MD, PhD Service: ? Author Type: Physician Type: Progress Notes Filed: 02/15/2025 13:28 Note Text: Patient of Dr. Chirinos 0. 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 Posterior vitreous detachment (PVD) left eye Type 2 diabetes mellitus without retinopathy -rec good blood sugar control 3. History of Central retinal artery occlusion left eye -now with atrophy and nerve pallor -cilioretinal artery sparing -stable/monitor -rec good blood pressure control 4. Ocular hypertension of left eye -brimonidine twice a day both eyes both eyes -monitored by Dr. Reilly 5. Posterior chamber intraocular lens (PCIOL) both eyes -with Dr. Baxter, both eyes done end 2022 Plan: OCTa with Samuel and remodeling right eye, nonperfusion left eye and Samuel Patient had pneumonia - still with some weakness S/p avastin #4 right eye 11 weeks ago (planned extension) with no fluid Rec avastin right eye Extend to 14-15w for sti Full exam in Blood pressure control I have confirmed and edited as necessary the relevant HPI, ophthalmic history, ROS, and the neuro exam findings as obtained by others. I have seen and examined Misael Medina. I have discussed the case and the management of this patient's care with the Resident/Fellow, if applicable. I also have reviewed and agree with the assessment and plan as stated above and agree with all of its relevant components. Sergo Chirinos [facility]04-03-2025 History of Present illness Narrative* Sergo Chirinos MD, PhD - 02/15/2025 12:07 PM EDT Patient of Dr. Chirinos 0. 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 Posterior vitreous detachment (PVD) left eye Type 2 diabetes mellitus without retinopathy -rec good blood sugar control 3. History of Central retinal artery occlusion left eye -now with atrophy and nerve pallor -cilioretinal artery sparing -stable/monitor -rec good blood pressure control 4. Ocular hypertension of left eye -brimonidine twice a day both eyes both eyes -monitored by Dr. Reilly 5. Posterior chamber intraocular lens (PCIOL) both eyes -with Dr. Baxter, both eyes done end 2022 Plan: OCTa with Samuel and remodeling right eye, nonperfusion left eye and Samuel Patient had pneumonia - still with some weakness S/p avastin #4 right eye 11 weeks ago (planned extension) with no fluid Rec avastin right eye Extend to 14-15w for sti Full exam in Blood pressure control I have confirmed and edited as necessary the relevant HPI, ophthalmic history, ROS, and the neuro exam findings as obtained by others. I have seen and examined Misael Renée Villavicenciojaqueline. I have discussed the case and the management of this patient's care with the Resident/Fellow, if applicable. I also have reviewed and agree with the assessment and plan as stated above and agree withall of its relevant components. Sergo Chirinos MD documented in this encounterPrem[facility] Evaluation note* Diagnosis Onset Date Resolution Status Admit Date Aortic valve stenosis acute Nov 10:15am High cholesterol acute December 01, 2024 10:15am LV dysfunction acute December 012024 10:15am Pulmonary hypertension acute [facility] 2024 10:15am Chronic renal disease, stage 3, moderately decreased glomerular filtration chronic December 012024 10:15am Hypertension chronic November 10:15am Aortic valve stenosis acute Apr 2024 1:02pm Congestive heart failure acute March 12, 2025 1:02pm High cholesterol acute March 122024 1:02pm Chronic renal disease, stage 3, moderately decreased glomerular filtration chronic February 1:02pm Hypertension chronic March 12, 2025 1:02pm Acute kidney injury superimposed on chronic kidney disease chronic March 13, 2025 6:27pm [facility] Work Phone: 1(246) 926-530901-17-2025 Evaluation note* Diagnosis Onset Date Resolution Status Admit Date Aortic valve stenosis acute Nov 10:15am High cholesterol acute December 01, 2024 10:15am LV dysfunction acute December 012024 10:15am Pulmonary hypertension acute [facility] 2024 10:15am Chronic renal disease, stage 3, moderately decreased glomerular filtration chronic December 01 10:15am Hypertension chronic November 10:15am Aortic valve stenosis acute Apr 2024 1:02pm Congestive heart failure acute March 12, 2025 1:02pm High cholesterol acute March 122024 1:02pm Chronic renal disease, stage 3, moderately decreased glomerular filtration chronic March 12, 2025 1:02pm Hypertension chronic March 12, 2025 1:02pm Aortic valve stenosis acute Apr 2024 6:27pm Congestive heart failure acute March 13, 2025 6:27pm Ecchymosis acute March 13 6:27pm Other acute osteomyelitis, right ankle and foot acute March 13, 2025 6:27pm Pulmonary hypertension acute Ap ril 2024 6:27pm Right hallux osteomyelitis acute March 13, 2025 6:27pm Type 2 diabetes mellitus wit h diabetic polyneuropathy acute March 132024 6:27pm Acute kidney injury superimposed on chronic kidney disease chronic March 13, 2025 6:27pm Acute on chronic renal failure chron ic March 13, 2025 6:27pm Chronic renal disease, stage 3, moderately decreased glomerular filtration chronic March 13, 2025 6:27pm Hypertension chronic March 13, 2025 6:27pm 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 Work Phone: 1(201) 514-174601-16-2025 NoteDate of Procedure 11/30/2024 [place] Protocol Safety Checklist Sign In: A moment to CARE completed, Special equipment verified, Appropriate PPE verified, Patient name, date of , allergies and intended procedure verified. Provider Confirms: Correct side/site marked visible, Consent documented and matches the intended procedure, Intended patient and procedure match the source document. Relevant labs, photos, and/or imaging studies have been reviewed. Medications required for procedure verified. Fire risk assessed and interventions discussed. No implants. Anesthesia 0.5 mL subconjunctival injection of 2% Lidocaine, 1-2 drops Topical 0.5% Proparacaine. Prep 5% Betadine. Injection Administration Medication: 1.25 mg bevacizumab (Oralia's) 2.75 mg/0.11 mL Route: INTRAVITREAL, Site: Right Balance Wasted Residual medication less than 1 unit was discarded. Anterior Chamber Paracentesis No. Post Injection Evaluation Patient has at least hand motion vision. Post Procedure Medications None. Home Going Prescription None. Sign Out Sign out discussion completed, All instruments, equipment, and/or possible retained foreign bodies accounted for, Post-procedure follow up management communicated. No specimens.[facility]01-16-[facility] Instructions* Patient Instructions* Sergo Chirinos MD, PhD - 11/30/2024 10:26 AM EST Post Injection Patient Information You had eye injection(s) today. These are your after injection instructions. Today: Preservative free artificial tears 1 drop every hour while awake as needed Tomorrow: Preservative free artificial tears 1 drop every 2 hours while awake as needed Care instructions after eye injections: Do not rub or touch your eye other than dabbing lightly with a tissue An vzqu-pop-mjtmgvh pain reliever (i.e. Tylenol) can be used for mild soreness Use artificial tears/lubricating drops once an hour as needed for comfort (chill the tears in the refrigerator for more comfort). If you are using the tears more than 4 times a day they need to be the preservative free kind Warm or cool compresses are okay It is okay to shower and wash your face. No swimming pools or saunas for 24 hours COMMON symptoms after successful eye injections: Mild to moderate pain or irritation beginning the day of the injection. This should begin to improve the following day. Eyelash in the eye or hiram/gritty sensation Tearing Mild floaters or bubbles in your vision - usually resolves after 1-2 days Bloody tears for 1-2 days after treatment Eye Redness Also known as subconjunctival hemorrhage This bruise can cover the entire white part of the eye and may last a few weeks CONCERNING symptoms after eye injections: Severe, constant pain Worsening pain after the first day Decreased vision Severe, constant floaters Curtain or veil in your vision New eye redness that was not there after the injection and covers the whole eye Please call the office immediately for any of the above listed concerning symptoms or with any other questions. If it is after hours please call [phone] which will give instructions on how to reach the eye doctor concrete spreader documented in this encounterPrem[facility]25 NoteDate of Procedure 11/30/2024. Sand Plant Attendant Information Ham Stripper: OCT Macula Interpretation Right Eye Normal without fluid. Left Eye Abnormal foveal contour. Findings include Atrophy.[id number] NoteHNO ID: [id number] Author: SERGO CHIRINOS MD, PhD Service: ? Author Type: Physician Type: Progress Notes Filed: 11/30/2024 10:26 Note Text: Patient of Dr. Chirinos 0. 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 Posterior vitreous detachment (PVD) left eye Type 2 diabetes mellitus without retinopathy -rec good blood sugar control 3. History of Central retinal artery occlusion left eye -now with atrophy and nerve pallor -cilioretinal artery sparing -stable/monitor -rec good blood pressure control 4. Ocular hypertension of left eye -brimonidine twice a day both eyes both eyes -monitored by Dr. Reilly 5. Posterior chamber intraocular lens (PCIOL) both eyes -with Dr. Baxter, both eyes done end of 2022 Plan: S/p avastin #3 right eye 8 weeks ago (planned extension) with no fluid Rec avastin right eye Extend to 10-12w for full exam Blood pressure control I have confirmed and edited as necessary the relevant HPI, ophthalmic history, ROS, and the neuro exam findings as obtained by others. I have seen and examined Misael Medina. I have discussed the case and the management of this patient's care with the Resident/Fellow, if applicable. I also have reviewed and agree with the assessment and plan as stated above and agree with all of its relevant components. Sergo Chirinos [facility]01-16-2025 History of Present illness Narrative* Sergo Chirinos MD, PhD - 11/30/2024 9:27 AM EST Patient of Dr. Chirinos 0. 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 Posterior vitreous detachment (PVD) left eye Type 2 diabetes mellitus without retinopathy -rec good blood sugar control 3. History of Central retinal artery occlusion left eye -now with atrophy and nerve pallor -cilioretinal artery sparing -stable/monitor -rec good blood pressure control 4. Ocular hypertension of left eye -brimonidine twice a day both eyes both eyes -monitored by Dr. Reilly 5. Posterior chamber intraocular lens (PCIOL) both eyes -with Dr. Baxter, both eyes done end of 2022 Plan: S/p avastin #3 right eye 8 weeks ago (planned extension) with no fluid Rec avastin right eye Extend to 10-12w for full exam Blood pressure control I have confirmed and edited as necessary the relevant HPI, ophthalmic history, ROS, and the neuro exam findings as obtained by others. I have seen and examined Misael Villavicenciojaqueline. I have discussed the case and the management of this patient's care with the Resident/Fellow, if applicable. I also have reviewed and agree with the assessment and plan as stated above and agree withall of its relevant components. Sergo Chirinos MD documented in this encounterPremier Health [facility]12[facility]12[facility]07[facility]12-04-2024 Evaluation note* Diagnosis Onset Date Resolution Status Admit Date High cholesterol acute October 18, 2024 12:29am LV dysfunction acute October 182023 12:29am Pulmonary hypertension acute [facility]2023 12:29am Acute hypoxemic respiratory failure resolved October 18 12:29am JOSUE (acute kidney injury) resolved October 18, 2024 12:29am [facility] Hyperkalemia resolved October 12:29am Metabolic acidosis resolved [facility] 2023 12:29am Pneumonia resolved October 18, 2024 12:29am Sepsis resolved October 18, 2024 12:29am Diabetes inactive October 18, 2024 12:29am Hypertension inactive October 12:29am Morbid obesity with BMI of 45.0-49.9, adult inactive October 18 12:29am Acute HFrEF (heart failure with reduced ejection fraction) resolved October 30 6:01pm JOSUE (acute kidney injury) resolved October 30, 2024 6:01pm Dyspnea resolved October 30, 2024 6:01pm Hypoxia resolved October 30, 2024 6:01pm Congestive heart failure inactive October 30, 2024 6:01pm Aortic valve stenosis acute Juan guillen 2024 10:15am High cholesterol acute December 01, 2024 10:15am LV dysfunction acute December 012024 10:15am Pulmonary hypertension acute Mio wardary 2024 10:15am Chronic renal disease, stage 3, moderately decreased glomerular filtration chronic December 012024 10:15am Hypertension chronic November 10:15am [facility] Work Phone: 1(516) 956-182111-21-2024 NoteDate of Procedure 10/05/2024 [place] Protocol Safety Checklist Sign In: A moment to CARE completed, Special equipment verified, Appropriate PPE verified, Patient name, date of , allergies and intended procedure verified. Provider Confirms: Correct side/site marked visible, Consent documented and matches the intended procedure, Intended patient and procedure match the source document. Relevant labs, photos, and/or imaging studies have been reviewed. Medications required for procedure verified. Fire risk assessed and interventions discussed. No implants. Anesthesia 0.5 mL subconjunctival injection of 2% Lidocaine, 1-2 drops Topical 0.5% Proparacaine. Prep 5% Betadine. Injection Administration Medication: 1.25 mg bevacizumab (Oralia's) 2.75 mg/0.11 mL Route: INTRAVITREAL, Site: Right Balance Wasted Residual medication less than 1 unit was discarded. Anterior Chamber Paracentesis No. Post Injection Evaluation Patient has at least hand motion vision. Post Procedure Medications None. Home Going Prescription None. Sign Out Sign out discussion completed, All instruments, equipment, and/or possible retained foreign bodies accounted for, Post-procedure follow up management communicated. No specimens.[facility]11-21-2024 Instructions* Patient Instructions* Sergo Chirinos MD, PhD - 10/05/2024 4:43 PM EST Post Injection Patient Information You had eye injection(s) today. These are your after injection instructions. Today: Preservative free artificial tears 1 drop every hour while awake as needed Tomorrow: Preservative free artificial tears 1 drop every 2 hours while awake as needed Care instructions after eye injections: Do not rub or touch your eye other than dabbing lightly with a tissue An gers-spe-vnbigjt pain reliever (i.e. Tylenol) can be used for mild soreness Use artificial tears/lubricating drops once an hour as needed for comfort (chill the tears in the refrigerator for more comfort). If you are using the tears more than 4 times a day they need to be the preservative free kind Warm or cool compresses are okay It is okay to shower and wash your face. No swimming pools or saunas for 24 hours COMMON symptoms after successful eye injections: Mild to moderate pain or irritation beginning the day of the injection. This should begin to improve the following day. Eyelash in the eye or hiram/gritty sensation Tearing Mild floaters or bubbles in your vision - usually resolves after 1-2 days Bloody tears for 1-2 days after treatment Eye Redness Also known as subconjunctival hemorrhage This bruise can cover the entire white part of the eye and may last a few weeks CONCERNING symptoms after eye injections: Severe, constant pain Worsening pain after the first day Decreased vision Severe, constant floaters Curtain or veil in your vision New eye redness that was not there after the injection and covers the whole eye Please call the office immediately for any of the above listed concerning symptoms or with any other questions. If it is after hours please call [phone] which will give instructions on how to reach the eye doctor concrete spreader documented in this encounterPremier Health [facility]11-[facility]-2024 NoteDate of Procedure 10/05/2024. Sand Plant Attendant Information Ham Stripper: re. Interpretation Right Eye Normal foveal contour. Findings include Intraretinal fluid. Left Eye Abnormal foveal contour. Findings include Atrophy.[id number] NoteHNO ID: [id number] Author: SERGO CHIRINOS MD, PhD Service: ? Author Type: Physician Type: Progress Notes Filed: 10/05/2024 17:01 Note Text: Patient of Dr. Chirinos 0. 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 Posterior vitreous detachment (PVD) left eye Type 2 diabetes mellitus without retinopathy -rec good blood sugar control 3. History of Central retinal artery occlusion left eye -now with atrophy and nerve pallor -cilioretinal artery sparing -stable/monitor -rec good blood pressure control 4. Ocular hypertension of left eye -brimonidine twice a day both eyes both eyes -monitored by Dr. Reilly 5. Posterior chamber intraocular lens (PCIOL) both eyes -with Dr. Baxter, both eyes done end 2022 Plan: S/p avastin #2 right eye 6 weeks ago with trace IRF Rec avastin right eye Extend to 8w STI right eye Full exam January Blood pressure control I have confirmed and edited as necessary the relevant HPI, ophthalmic history, ROS, and exam findings as obtained by others. I have seen and examined this patient. I have discussed the case and the management of this patient's care with the Resident, if applicable. I also have reviewed and agree with the assessment and plan as stated above and agree with all of its relevant components.[facility]11-21-2024 History of Present illness Narrative* Sergo Chirinos MD, PhD - 10/05/2024 3:38 PM EST Patient of Dr. Chirinos 0. 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 Posterior vitreous detachment (PVD) left eye Type 2 diabetes mellitus without retinopathy -rec good blood sugar control 3. History of Central retinal artery occlusion left eye -now with atrophy and nerve pallor -cilioretinal artery sparing -stable/monitor -rec good blood pressure control 4. Ocular hypertension of left eye -brimonidine twice a day both eyes both eyes -monitored by Dr. Reilly 5. Posterior chamber intraocular lens (PCIOL) both eyes -with Dr. Baxter, both eyes done end 2022 Plan: S/p avastin #2 right eye 6 weeks ago with trace IRF Rec avastin right eye Extend to 8w STI right eye Full exam March Blood pressure control I have confirmed and edited as necessary the relevant HPI, ophthalmic history, ROS, and exam findings as obtained by others. I have seen and examined this patient. I have discussed the case and the management of this patient's care with the Resident, if applicable. I also have reviewed and agree with the assessment and plan as stated above and agree with all ofits relevant components. documented in this encounterPrem[facility] Health [facility]10-[facility] Instructions* Patient Instructions* Sarah Reilly II, OD - 09/06/2024 2:01 PM EDT Assessment and Plan H34.8310 Tributary (branch) retinal vein occlusion, right eye, with macular edema (primary encounter diagnosis) Comment: Edema continues to improve. Follow-up with retina as instructed. Discussed recommended follow-up with PCP or Cardiology to minimize chance of additional vascular occlusions. H34.12 Central retinal artery occlusion, left eye Comment: Stable. Monitor H33.312 Operculated retinal tear of left eye Comment: Stable laser repair. Monitor. 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 Discussed recommended optimal diabetes control to minimize chance of complications. Advise patient to immediately report worsening in status or additional symptoms. Continue yearly dilated eye examinations. H40.052 Ocular hypertension of left eye Comment: Well controlled with use of Brimonidine 1 gt both eyes twice a day. Continue treatment. H52.223 Regular astigmatism of both eyes H52.4 Presbyopia Comment: Stable glasses power. Adjust frame for better fit. I have confirmed and edited as necessary the relevant HPI, ophthalmic history, ROS, and the neuro exam findings as obtained by others. I have seen and examined Misael Medina. I have discussed the case and the management of this patient's care with the Resident/Fellow, if applicable. I also have reviewed and agree with the assessment and plan as stated above and agree withall of its relevant components. documented in this encounterPremier Health [facility]10-23-2024 NoteHNO ID: [id number] Author: SARAH REILLY II, CHRISTIE Service: ? Author Type: CLOTH PATTERN MAKER Type: Progress Notes Filed: 09/06/2024 14:01 Note Text: Assessment and Plan H34.8310 Tributary (branch) retinal vein occlusion, right eye, with macular edema (primary encounter diagnosis) Comment: Edema continues to improve. Follow-up with retina as instructed. Discussed recommended follow-up with PCP or Cardiology to minimize chance of additional vascular occlusions. H34.12 Central retinal artery occlusion, left eye Comment: Stable. Monitor H33.312 Operculated retinal tear of left eye Comment: Stable laser repair. Monitor. 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 Discussed recommended optimal diabetes control to minimize chance of complications. Advise patient to immediately report worsening in status or additional symptoms. Continue yearly dilated eye examinations. H40.052 Ocular hypertension of left eye Comment: Well controlled with use of Brimonidine 1 gt both eyes twice a day. Continue treatment. H52.223 Regular astigmatism of both eyes H52.4 Presbyopia Comment: Stable glasses power. Adjust frame for better fit. I have confirmed and edited as necessary the relevant HPI, ophthalmic history, ROS, and the neuro exam findings as obtained by others. I have seen and examined Misael Medina. I have discussed the case and the management of this patient's care with the Resident/Fellow, if applicable. I also have reviewed and agree with the assessment and plan as stated above and agree with all of its relevant components.[facility]10-23-2024 History of Present illness Narrative* Sarah Reilly II, OD - 09/06/2024 1:36 PM EDT Assessment and Plan H34.8310 Tributary (branch) retinal vein occlusion, right eye, with macular edema (primary encounter diagnosis) Comment: Edema continues to improve. Follow-up with retina as instructed. Discussed recommended follow-up with PCP or Cardiology to minimize chance of additional vascular occlusions. H34.12 Central retinal artery occlusion, left eye Comment: Stable. Monitor H33.312 Operculated retinal tear of left eye Comment: Stable laser repair. Monitor. 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 Discussed recommended optimal diabetes control to minimize chance of complications. Advise patient to immediately report worsening in status or additional symptoms. Continue yearly dilated eye examinations. H40.052 Ocular hypertension of left eye Comment: Well controlled with use of Brimonidine 1 gt both eyes twice a day. Continue treatment. H52.223 Regular astigmatism of both eyes H52.4 Presbyopia Comment: Stable glasses power. Adjust frame for better fit. I have confirmed and edited as necessary the relevant HPI, ophthalmic history, ROS, and the neuro exam findings as obtained by others. I have seen and examined Misael Medina. I have discussed the case and the management of this patient's care with the Resident/Fellow, if applicable. I also have reviewed and agree with the assessment and plan as stated above and agree withall of its relevant components. documented in this encounterPremier Health [facility]10-10-2024 NoteDate of Procedure 08/24/2024. Sand Plant Attendant Information Ham Stripper: [email or web address]. Interpretation Right Eye Findings include Negative for Intraretinal fluid, Cystoid macular edema, Subretinal fluid. Left Eye Findings include Negative for Intraretinal fluid, Cystoid macular edema, Subretinal fluid. Interval Change Right Eye Better. Left Eye Stable.[id number] NoteDate of Procedure 08/24/2024 [place] Protocol Safety Checklist Sign In: A moment to CARE completed, Special equipment verified, Appropriate PPE verified, Patient name, date of , allergies and intended procedure verified. Provider Confirms: Intended patient and procedure match the source document, Consent documented and matches the intended procedure, Correct side/site marked visible. Relevant labs, photos, and/or imaging studies have been reviewed. Medications required for procedure verified. Fire risk assessed and interventions discussed. Correct implant confirmed and expiration reviewed. Anesthesia 1-2 drops Topical 0.5% Proparacaine, 0.5 mL subconjunctival injection of 2% Lidocaine. Prep 5% Betadine. Injection Administration Medication: 1.25 mg bevacizumab (Oralia's) 2.75 mg/0.11 mL Route: INTRAVITREAL, Site: Right Balance Wasted Residual medication less than 1 unit was discarded. Anterior Chamber Paracentesis No. Post Injection Evaluation Patient has at least hand motion vision. Post Procedure Medications None. Home Going Prescription None. Sign Out Sign out discussion completed, All instruments, equipment, and/or possible retained foreign bodies accounted for, Post-procedure follow up management communicated. No specimens.[facility]10-10-2024 NoteHNO ID: [id number] Author: YEN GAMBOA MD Service: ? Author Type: Physician Type: Progress Notes Filed: 08/24/2024 12:33 Note Text: Patient of Dr. Chirinos 0. 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 Posterior vitreous detachment (PVD) left eye Type 2 diabetes mellitus without retinopathy -rec good blood sugar control 3. History of Central retinal artery occlusion left eye -now with atrophy and nerve pallor -cilioretinal artery sparing -stable/monitor -rec good blood pressure control 4. Ocular hypertension of left eye -brimonidine twice a day both eyes both eyes -monitored by Dr. Reilly 5. Posterior chamber intraocular lens (PCIOL) both eyes -with Dr. Baxter, both eyes done end of 2022 Plan: Rec avastin right eye Return in 4-6 wks STI right eye Full exam January Blood pressure control I have confirmed and edited as necessary the relevant HPI, ophthalmic history, ROS, and exam findings as obtained by others. I have seen and examined this patient. I have discussed the case and the management of this patient's care with the Resident, if applicable. I also have reviewed and agree with the assessment and plan as stated above and agree with all of its relevant components.[facility]10-10-2024 History of Present illness Narrative* Yen Gamboa MD - 08/24/2024 11:59 AM EDT Patient of Dr. Chirinos 0. 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 Posterior vitreous detachment (PVD) left eye Type 2 diabetes mellitus without retinopathy -rec good blood sugar control 3. History of Central retinal artery occlusion left eye -now with atrophy and nerve pallor -cilioretinal artery sparing -stable/monitor -rec good blood pressure control 4. Ocular hypertension of left eye -brimonidine twice a day both eyes both eyes -monitored by Dr. Reilly 5. Posterior chamber intraocular lens (PCIOL) both eyes -with Dr. Baxter, both eyes done end of 2022 Plan: Rec avastin right eye Return in 4-6 wks STI right eye Full exam January Blood pressure control I have confirmed and edited as necessary the relevant HPI, ophthalmic history, ROS, and exam findings as obtained by others. I have seen and examined this patient. I have discussed the case and the management of this patient's care with the Resident, if applicable. I also have reviewed and agree with the assessment and plan as stated above and agree with all ofits relevant components. documented in this encounterPremier Health [facility]09-[facility]-20[facility] NoteDate of Procedure 07/20/2024 [place] Protocol Safety Checklist Sign In: A moment to CARE completed, Special equipment verified, Appropriate PPE verified, Patient name, date of , allergies and intended procedure verified. Provider Confirms: Correct side/site marked visible, Consent documented and matches the intended procedure, Intended patient and procedure match the source document. Relevant labs, photos, and/or imaging studies have been reviewed. Medications required for procedure verified. Fire risk assessed and interventions discussed. No implants. Anesthesia 0.5 mL subconjunctival injection of 2% Lidocaine, 1-2 drops Topical 0.5% Proparacaine. Prep 5% Betadine. Injection Administration Medication: 1.25 mg bevacizumab (Oralia's) 2.75 mg/0.11 mL Route: INTRAVITREAL, Site: Right Balance Wasted Residual medication less than 1 unit was discarded. Anterior Chamber Paracentesis No. Post Injection Evaluation Patient has at least hand motion vision. Post Procedure Medications None. Home Going Prescription None. Sign Out Sign out discussion completed, All instruments, equipment, and/or possible retained foreign bodies accounted for, Post-procedure follow up management communicated. No specimens.[facility]09-05-2024 Instructions* Patient Instructions* Sergo Chirinos MD, PhD - 07/20/2024 4:03 PM EDT Post Injection Patient Information You had eye injection(s) today. These are your after injection instructions. Today: Preservative free artificial tears 1 drop every hour while awake as needed Tomorrow: Preservative free artificial tears 1 drop every 2 hours while awake as needed Care instructions after eye injections: Do not rub or touch your eye other than dabbing lightly with a tissue An eexw-jtg-cisgbgt pain reliever (i.e. Tylenol) can be used for mild soreness Use artificial tears/lubricating drops once an hour as needed for comfort (chill the tears in the refrigerator for more comfort). If you are using the tears more than 4 times a day they need to be the preservative free kind Warm or cool compresses are okay It is okay to shower and wash your face. No swimming pools or saunas for 24 hours COMMON symptoms after successful eye injections: Mild to moderate pain or irritation beginning the day of the injection. This should begin to improve the following day. Eyelash in the eye or hiram/gritty sensation Tearing Mild floaters or bubbles in your vision - usually resolves after 1-2 days Bloody tears for 1-2 days after treatment Eye Redness Also known as subconjunctival hemorrhage This bruise can cover the entire white part of the eye and may last a few weeks CONCERNING symptoms after eye injections: Severe, constant pain Worsening pain after the first day Decreased vision Severe, constant floaters Curtain or veil in your vision New eye redness that was not there after the injection and covers the whole eye Please call the office immediately for any of the above listed concerning symptoms or with any other questions. If it is after hours please call [phone] which will give instructions on how to reach the eye doctor concrete spreader documented in this encounterPremier Health [facility]09-05-2024 NoteHNO ID: [id number] Author: SERGO CHIRINOS MD, PhD Service: ? 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 Operculated retinal tear of left eye -on TOBACCO DIPPER with some tethering at edge of hole -s/p retinopexy (10/01/22) 2. Posterior vitreous detachment (PVD) left eye Type 2 diabetes mellitus without retinopathy -rec good blood sugar control 3. History of Central retinal artery occlusion left eye -now with atrophy and nerve pallor -cilioretinal artery sparing -stable/monitor -rec good blood pressure control 4. Ocular hypertension of left eye -brimonidine twice a day both eyes both eyes -monitored by Dr. Reilly 5. Posterior chamber intraocular lens (PCIOL) both eyes -with Dr. Baxter, both eyes done end of 2022 Plan: Rec avastin right eye Return in 4-6 wks STI right eye Full exam March Blood pressure control I have confirmed and edited as necessary the relevant ophthalmic history, ROS, and the neuro exam findings as obtained by others. I have seen and examined this patient. I have discussed the case and the management of this patient's care with the Resident/Fellow, if applicable. I also have reviewed and agree with the assessment and plan as stated above and agree with all of its relevant components. 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 Reilly for cystoid macular edema 0. 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 Operculated retinal tear of left eye -on TOBACCO DIPPER with some tethering at edge of hole -s/p retinopexy (10/01/22) 2. Posterior vitreous detachment (PVD) left eye Type 2 diabetes mellitus without retinopathy -rec good blood sugar control 3. History of Central retinal artery occlusion left eye -now with atrophy and nerve pallor -cilioretinal artery sparing -stable/monitor -rec good blood pressure control 4. Ocular hypertension of left eye -brimonidine twice a day both eyes both eyes -monitored by Dr. Reilly 5. Posterior chamber intraocular lens (PCIOL) both eyes -with Dr. Baxter, both eyes done end of 2022 Plan: Rec avastin right eye Return in 4-6 wks STI right eye Full exam March Blood pressure control I have confirmed and edited as necessary the relevant ophthalmic history, ROS, and the neuro exam findings as obtained by others. I have seen and examined this patient. I have discussed the case and the management of this patient's care with the Resident/Fellow, if applicable. I also have reviewed and agree with the assessment and plan as stated above and agree withall of its relevant components. 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 Retinal referral ELI I have confirmed and edited as necessary the relevant HPI, ophthalmic history, ROS, and the neuro exam findings as obtained by others. I have seen and examined Misael Renée Medina. I have discussed the case and the management of this patient's care with the Resident/Fellow, if applicable. I also have reviewed and agree with the assessment and plan as stated above and agree withall of its relevant components. documented in this encounterPrem[facility]24 NoteHNO ID: [id number] Author: SARAH REILLY II, OD Service: ? 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 Retinal referral ELI I have confirmed and edited as necessary the relevant HPI, ophthalmic history, ROS, and the neuro exam findings as obtained by others. I have seen and examined Misael Medina. I have discussed the case and the management of this patient's care with the Resident/Fellow, if applicable. I also have reviewed and agree with the assessment and plan as stated above and agree with all of its relevant components.[facility]09-05-2024 NoteDate of Procedure 07/20/2024. Interpretation Right Eye Abnormal foveal contour. Findings include Intraretinal fluid. Left Eye Abnormal foveal contour. Findings include Atrophy. Interval Change Right Eye Worse. Left Eye Stable. 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 Retinal referral ELI I have confirmed and edited as necessary the relevant HPI, ophthalmic history, ROS, and the neuro exam findings as obtained by others. I have seen and examined Misael Medina. I have discussed the case and the management of this patient's care with the Resident/Fellow, if applicable. I also have reviewed and agree with the assessment and plan as stated above and agree withall of its relevant components. documented in this encounterPrem[facility]-07-[facility]24 Instructions* Patient Instructions* Sarah Reilly II, OD - 12/22/2023 1:22 PM EST Assessment and Plan Z98.41, Z96.1 Status post cataract extraction and insertion of intraocular lens of right eye (primary encounter diagnosis) Z98.42, Z96.1 Status post cataract extraction and insertion of intraocular lens of left eye Comment: Healing well. Update glasses power right eye. Continue artificial tears daily. Dilated fundus exam in . Instruct patient to immediately report any change in condition outside of expected and discussed symptoms. I have confirmed and edited as necessary the relevant ophthalmic history, ROS, and the neuro exam findings as obtained by others. I have seen and examined Misael Medina. I have discussed the case and the management of this patient's care with the Resident/Fellow, if applicable. I also have reviewed and agree with the assessment and plan as stated above and agree withall of its relevant components. Sarah Reilly II, OD documented in this encounterPrem[facility]02-07-2024 History of Present illness Narrative* Sarah Reilly II, OD - 12/22/2023 1:20 PM EST Assessment and Plan Z98.41, Z96.1 Status post cataract extraction and insertion of intraocular lens of right eye (primary encounter diagnosis) Z98.42, Z96.1 Status post cataract extraction and insertion of intraocular lens of left eye Comment: Healing well. Update glasses power right eye. Continue artificial tears daily. Dilated fundus exam in . Instruct patient to immediately report any change in condition outside of expected and discussed symptoms. I have confirmed and edited as necessary the relevant ophthalmic history, ROS, and the neuro exam findings as obtained by others. I have seen and examined Misael Medina. I have discussed the case and the management of this patient's care with the Resident/Fellow, if applicable. I also have reviewed and agree with the assessment and plan as stated above and agree withall of its relevant components. Sarah Reilly II, OD documented in this encounterPrem[facility]11-29-2023 Instructions* Patient Instructions* Sarah Reilly II, OD - 10/13/2023 4:53 PM EST Assessment and Plan Z98.41, Z96.1 Status post cataract extraction and insertion of intraocular lens of right eye (primary encounter diagnosis) Z98.42, Z96.1 Status post cataract extraction and insertion of intraocular lens of left eye Comment: Healing well both eyes. Posterior chamber intraocular lenses are well positioned and clear. Continue schedule of postoperative medications as directed. Recheck refraction at next visit before pseudophakic spectacles obtained. Recheck in 2-3 weeks. Instruct patient to immediately report anychange in condition outside of expected and discussed symptoms. I have confirmed and edited as necessary the relevant ophthalmic history, ROS, and the neuro exam findings as obtained by others. I have seen and examined Misaellenny Medina. I have discussed the case and the management of this patient's care with the Resident/Fellow, if applicable. I also have reviewed and agree with the assessment and plan as stated above and agree withall of its relevant components. Sarah Reilly II, OD documented in this encounterPrem[facility]11-29-2023 History of Present illness Narrative* Sarah Reilly II, OD - 10/13/2023 4:52 PM EST Assessment and Plan Z98.41, Z96.1 Status post cataract extraction and insertion of intraocular lens of right eye (primary encounter diagnosis) Z98.42, Z96.1 Status post cataract extraction and insertion of intraocular lens of left eye Comment: Healing well both eyes. Posterior chamber intraocular lenses are well positioned and clear. Continue schedule of postoperative medications as directed. Recheck refraction at next visit before pseudophakic spectacles obtained. Recheck in 2-3 weeks. Instruct patient to immediately report anychange in condition outside of expected and discussed symptoms. I have confirmed and edited as necessary the relevant ophthalmic history, ROS, and the neuro exam findings as obtained by others. I have seen and examined Misael Medina. I have discussed the case and the management of this patient's care with the Resident/Fellow, if applicable. I also have reviewed and agree with the assessment and plan as stated above and agree withall of its relevant components. Sarah Reilly II, OD documented in this encounterPrem[facility]11-17-2023 History of Present illness Narrative* Ivan Baxter MD - 10/01/2023 1:21 PM EST ASSESSMENT/PLAN: 1. Status post cataract extraction and insertion of intraocular lens of left eye - ICD9: V45.61, V43.1, ICD10: Z98.42, Z96.1 (primary diagnosis) 2. Status post cataract extraction and insertion of intraocular lens of right eye - ICD9: V45.61, V43.1, ICD10: Z98.41, Z96.1 Current Ophthalmic Meds keTORolac (ACULAR) 0.5 % ophthalmic solution Use 1 Drop in the right eye four times daily for 7 days, then three times daily until 11/04/2023 prednisoLONE acetate (PRED FORTE) 1 % ophthalmic suspension Use 1 Drop in the right eye four times daily for 7 days, then three times daily until 11/04/2023 Systane Complete Artificial Tears - Use 1 Drop into both eyes three times a day. 3. 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 without macular edema, without long-term current use of insulin (HCC) - ICD9: 250.50, 362.04, ICD10: E11.3291 Please keep your blood sugar under good control to minimize risk of ocular complications from diabetes. Continue care with Dr. Girish Simon 4. Central retinal artery occlusion, left eye - ICD9: 362.31, ICD10: H34.[address] Chirinos's note -cilioretinal artery sparing -stable/monitor -rec good blood pressure control Advised patient to continue care with Cardiology 5. Operculated retinal tear of left eye - ICD9: 361.32, ICD10: H33.312 Stable/observe -s/p retinopexy (10/01/22) Ivan Baxter MD I have confirmed and edited as necessary the relevant ophthalmic history, review of systems, surgical history, and ophthalmological examination findings as obtained by the ophthalmic technical staff.I have seen and examined Misael Medina. I have discussed the examination findings, diagnosis, and treatment options with Misael Medina and/or her family. I have also reviewed and agree withthe assessment and plan as stated above and agree with all its relevant components. I gave the patient the opportunity to ask questions about the findings, diagnosis, and treatment options. documented in this encounterPrem[facility]11-16-2023 Hospital Discharge instructions* Discharge Instructions* Ivan Baxter MD - 09/30/2023 10:24 AM EST Follow printed discharge instructions [facility] Work Phone: 1(279) 312-368511-16-2023 Miscellaneous Notes* Op Note - Ivan Baxter MD - 09/30/2023 10:08 AM EST Phacoemulsification Cataract with Insertion Intraocular Lens (R) Operative Note Date: 09/30/2023 OR Location: [facility] OR Name: Misael Medina Ed, : 1950, Age: 73 y.o., , Sex: female Diagnosis Pre-op Diagnosis * 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] Post-op Diagnosis * 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] Procedures Phacoemulsification Cataract with Insertion Intraocular Lens 19898 - IN XCAPSL CTRC RMVL INSJ IO LENS PROSTH W/O ECP Surgeons * Ivan Baxter - Primary Resident/Fellow/Other Criminal Justice Instructor: Surgeon(s) and Role: Procedure Summary Anesthesia: Monitor Anesthesia Care ASA: III Anesthesia Staff: Anesthesiologist: Girish T Bittinger, DO Estimated Blood Loss: None Intra-op Medications: Medication Name Total Dose lactated Ringer's infusion Cannot be calculated midazolam (Versed) injection 1 mg 1 mg Anesthesia Record Intraprocedure I/O Totals Intake lactated Ringer's infusion 300.00 mL Total Intake 300 mL Specimen: No specimens collected Staff: Harness Brusher: Sena Oliveros RN Scrub Person: Lucas Bullard Drains and/or Catheters: * None in log * Implants: Implants Type Name Action Serial No. Lens LENS, INTRAOCULAR, SN60WF 20.5 KANDACE - [id number] - [id number] Implanted [id number] Findings: Combined Form Age Related Cataract Right Eye Indications: Ed Medina is an 73 y.o. 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 Difficulty seeing for near and for distance right eye. Difficulty seeing to read and watch TV right eye. Difficulty with glare right eye. The patient was seen in the preoperative area. The risks, benefits, complications, treatment options, non-operative alternatives, expected recovery and outcomes were discussed with the patient. The possibilities of reaction to medication, pulmonary aspiration, injury to surrounding structures, bleeding, recurrent infection, the need for additional procedures, failure to diagnose a condition, and creating a complication requiring transfusion or operation were discussed with the patient. The patient concurred with the proposed plan, giving informed consent. The site of surgery was properly noted/marked if necessary per policy. The patient has been actively warmed in preoperative area. Preopera tive antibiotics are not indicated. Venous thrombosis prophylaxis are not indicated. Procedure Details: The patient was correctly identified and the patient's operative eye was marked with a marking pen and verified with the patient in the pre-operative area. The operative eye was dilated in the preoperative area. The patient was then taken to the operating room where timeout was performed before starting the procedure. Combined anesthesia with intravenous sedation and topical tetracaine eyedrops were instilled into the right eye. The operative eye was prepped and draped in the standard sterile ophthalmic fashion in preparation for ophthalmic surgery. A Alice wire speculum was then insertedbetween the eyelids of the right eye and the operating microscope was placed over the right eye. A paracentesis incision was made approximately 30 away from the planned surgical incision site with the help of MVR blade. 1% lidocaine MPF with Phenylephrine 1.5% PF was injected into the anterior chamber through the paracentesis incision. A near limbal clear corneal incision was fashioned in the temporal quadrant just outside the vascular arcade and Viscoat was injected into anterior chamber to firm the eye. A bent needle cystotome was used and Utrata forceps were utilized to create a continuouscurvilinear capsulorrhexis. BSS was injected beneath the anterior capsule to hydrodissect the nucleus from adjacent cortex and capsule. The residual cortex was then aspirated with irrigation/aspiration handpiece. The posterior capsule was then polished with the help of soft irrigation-aspiration tip. Provisc viscoelastic was then injected into the eye to reform the anterior chamber and to open the capsular bag. The intraocular lens implant was taken from its sterile wrapping, inspected under the surgical microscope and found to be in good condition. The intraocular lens implant 20.5D was injected into the capsule bag. The Provisc was then aspirated from the anterior chamber and from behind the intraocular lens implant. The anterior chamber was inflated with the help of BSS to moderate tension. And the edges of the surgical incision were then hydrated with the help of BSS. Vigamox was then injected into the anterior chamber and into the capsule bag through the paracentesis incision. The surgical wound was then inspected and found to be watertight. The wire speculum and drapes were then removed. Pred Forte eyedrops, Acular eyedrops and Betadine 5% sterile ophthalmic solution were instilled in the conjunctival sac. The patient tolerated the procedure well and was taken to recovery room in stable condition. Complications: None; patient tolerated the procedure well. Disposition: Home Condition: stable Attending Attestation: I performed the procedure. Ivan Baxter * Preprocedure Instructions - Sakina Abreu RN - 09/27/2023 12:50 PM EST No outpatient medications have been marked as taking for the 09/30/23 encounter (Hospital Encounter). 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] Post-op Diagnosis * 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] Procedures Phacoemulsification Cataract with Insertion Intraocular Lens 62235 - IN XCAPSL CTRC RMVL INSJ IO LENS PROSTH W/O ECP Surgeons * Ivan Baxter - Primary Resident/Fellow/Other Criminal Justice Instructor: Surgeon(s) and Role: Procedure Summary Anesthesia: Monitor Anesthesia Care ASA: III Anesthesia Staff: Anesthesiologist: Girish Najera DO Estimated Blood Loss: None Intra-op Medications: Medication Name Total Dose lactated Ringer's infusion Cannot be calculated midazolam (Versed) injection 1 mg 1 mg Anesthesia Record Intraprocedure I/O Totals Intake lactated Ringer's infusion 300.00 mL Total Intake 300 mL Specimen: No specimens collected Staff: Harness Brusher: Sena Oliveros RN Scrub Person: Lucas Bullard Drains and/or Catheters: * None in log * Implants: Implants Type Name Action Serial No. Lens LENS, INTRAOCULAR, SN60WF 20.5 KANDACE - [id number] - [id number] Implanted [id number] Findings: Combined Form Age Related Cataract Right Eye Indications: Ed Medina is an 73 y.o. 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 Difficulty seeing for near and for distance right eye. Difficulty seeing to read and watch TV right eye. Difficulty with glare right eye. The patient was seen in the preoperative area. The risks, benefits, complications, treatment options, non-operative alternatives, expected recovery and outcomes were discussed with the patient. The possibilities of reaction to medication, pulmonary aspiration, injury to surrounding structures, bleeding, recurrent infection, the need for additional procedures, failure to diagnose a condition, and creating a complication requiring transfusion or operation were discussed with the patient. The patient concurred with the proposed plan, giving informed consent. The site of surgery was properly noted/marked if necessary per policy. The patient has been actively warmed in preoperative area. Preopera tive antibiotics are not indicated. Venous thrombosis prophylaxis are not indicated. Procedure Details: The patient was correctly identified and the patient's operative eye was marked with a marking pen and verified with the patient in the pre-operative area. The operative eye was dilated in the preoperative area. The patient was then taken to the operating room where timeout was performed before starting the procedure. Combined anesthesia with intravenous sedation and topical tetracaine eyedrops were instilled into the right eye. The operative eye was prepped and draped in the standard sterile ophthalmic fashion in preparation for ophthalmic surgery. A Alice wire speculum was then insertedbetween the eyelids of the right eye and the operating microscope was placed over the right eye. A paracentesis incision was made approximately 30 away from the planned surgical incision site with the help of MVR blade. 1% lidocaine MPF with Phenylephrine 1.5% PF was injected into the anterior chamber through the paracentesis incision. A near limbal clear corneal incision was fashioned in the temporal quadrant just outside the vascular arcade and Viscoat was injected into anterior chamber to firm the eye. A bent needle cystotome was used and Utrata forceps were utilized to create a continuouscurvilinear capsulorrhexis. BSS was injected beneath the anterior capsule to hydrodissect the nucleus from adjacent cortex and capsule. The residual cortex was then aspirated with irrigation/aspiration handpiece. The posterior capsule was then polished with the help of soft irrigation-aspiration tip. Provisc viscoelastic was then injected into the eye to reform the anterior chamber and to open the capsular bag. The intraocular lens implant was taken from its sterile wrapping, inspected under the surgical microscope and found to be in good condition. The intraocular lens implant 20.5D was injected into the capsule bag. The Provisc was then aspirated from the anterior chamber and from behind the intraocular lens implant. The anterior chamber was inflated with the help of BSS to moderate tension. And the edges of the surgical incision were then hydrated with the help of BSS. Vigamox was then injected into the anterior chamber and into the capsule bag through the paracentesis incision. The surgical wound was then inspected and found to be watertight. The wire speculum and drapes were then removed. Pred Forte eyedrops, Acular eyedrops and Betadine 5% sterile ophthalmic solution were instilled in the conjunctival sac. The patient tolerated the procedure well and was taken to recovery room in stable condition. Complications: None; patient tolerated the procedure well. Disposition: Home Condition: stable Attending Attestation: I performed the procedure. Ivan Baxter [facility] Work Phone: 1([phone]) 268-255311-16-2023 Attending History and physical note* Ivan Baxter MD - 09/30/2023 8:34 AM EST H&P reviewed. The patient was examined and there are no changes to the H&P. Source Note - Ivan Baxter MD - 09/30/2023 8:34 AM EST Images from the original note were not included. H&P Notes - documented in this encounter Ivan Baxter MD - 09/27/2023 3:45 PM EST HISTORY AND PHYSICAL EXAMINATION SERVICE DATE: 09/27/2023 SERVICE TIME: PRIMARY CARE PHYSICIAN: Girish Simon MD, MD REASON FOR VISIT: Misael Medina is a 73 year old female who is being seen for combined age related cataract right eye The patient has the following: ACTIVE PROBLEM LIST Hypermetropia Regular Astigmatism Presbyopia Multiple Defects of Retina Without Detachment Type 2 Diabetes Mellitus With Right Eye Affected By Mild Nonproliferative Retinopathy Without Macular Edema, Without Long-Term Current Use of Insulin (Hcc) Central Retinal Artery Occlusion, Left Eye Essential Hypertension Stroke ([facility]) 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 TOTAL HIP REPLACEMENT Right 11/19/2022 FAMILY HISTORY Problem Relation Age of Onset No Ocular Disease Father Heart Father Diabetes Father Hypertension Father No Ocular Disease Mother Hypertension Mother Diabetes Mother No Ocular Disease Sister Diabetes Sister No Ocular Disease Brother No Ocular Disease Maternal Grandmother No Ocular Disease Maternal Grandfather No Ocular Disease Paternal Grandmother No Ocular Disease Paternal Grandfather SOCIAL HISTORY: Social History Tobacco Use Smoking status: Never Smokeless tobacco: Never Vaping Use Vaping Use: Never used Substance Use Topics Alcohol use: No Drug use: No MEDICATIONS: Prior to Admission medications as of 09/27/23 1538 Medication Sig Last Dose Taking keTORolac (ACULAR) 0.5 % ophthalmic solution Use 1 Drop in the left eye four times daily. Taking Yes prednisoLONE acetate (PRED FORTE) 1 % ophthalmic suspension Use 1 Drop in the left eye four times daily. Taking Yes fluorometholone (FML LIQUID FILM) 0.1 % ophthalmic suspension Use 1 Drop in the right eye three times a day. Taking Yes glipiZIDE (GLUCOTROL XL) 2.5 mg 24 hr tablet Taking Yes metFORMIN ER (GLUCOPHAGE XR) 500 mg 24 hr tablet Taking Yes pioglitazone (ACTOS) 30 mg tablet Taking Yes amLODIPine (NORVASC) 10 mg tablet Take 10 mg by mouth once daily. Taking Yes atorvastatin (LIPITOR) 10 mg tablet Take 10 mg by mouth once daily. Taking Yes levothyroxine (SYNTHROID) 100 mcg tablet Take 100 mcg by mouth once daily. Taking Yes acetaminophen (TYLENOL) 325 mg tablet Take 650 mg by mouth every 6 hours as needed. Taking Yes quinapril (ACCUPRIL) 20 mg tablet Take 2 tablets by mouth once daily. No medication comments found. CURRENT ALLERGIES: ALLERGIES Allergen Reactions Seasonal Allergies Other: See Comments Sinus issues REVIEW OF SYSTEMS: PAIN ASSESSMENT: General: No weight loss, malaise or fevers. Neuro: See HPI Respiratory: No history of current cough or dyspnea, or pneumonia in the past 6 weeks. No history of respiratory/pulmonary symptoms or problems Cardiovascular: Positive for: Hypertension GI: No history of GI symptoms or problems. No history of esophageal varices, recent ascites, or ETOH greater than 2 drinks per day. : No history of UTI in past 6 weeks. No history of renal failure. Not currently on or requiring dialysis. No history of symptoms or problems. 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 : Denies Endocrine: Diabetes Mellitus on oral agent Hematology: No history of bleeding or clotting disorder. Pt is not taking anti- coagulation or platelet medications. No history of hematological symptoms or problems. Oncology: No history of CA metastasis, chemo within 30 days, or radiotherapy within 90 days. Has not lost 10% of body wt in 6 months. No history of oncological symptoms or problems. Psych: No history of psychiatric symptoms or problems. Musculoskeletal: Negative for joint pain or swelling, back pain or muscle pain. Skin: Negative for lesions, rash and itching. PHYSICAL EXAM: VITALS: BP 187/72 Pulse 72 General: Alert and oriented Skin: Normal color, no rash, no lesions. HEENT: EOM, pupils equal, round and reactive. Cardiovascular: Normal S1 & S2, no rubs, murmurs or gallops. No JVD. Pulse regular. Lungs: Normal breath sounds, no wheezes or crackles. Abdomen: Soft, non-tender, no rigidity. Extremities: No deformity, no edema or tenderness, no joint swelling or clubbing. Neurological: Normal cognition and motor skills. Pulses: Carotid and radial pulses normal +2. Diagnostic tests reviewed for today's visit: No new labs or tests ASSESSMENT Medication and Non-Pharmacologic VTE Prophylaxis/Anticoagulants VTE Prophylaxis: VTE prophylaxis appropriate Impression: There is no known pertinent medical condition which may affect jett- operative course Clinical Risk Factors for Possible Cardiac Complications: None Patient is scheduled for a low-risk procedure. FUNCTIONAL STATUS: Walk indoors, such as around the house (1.75 METs) Functional Class (NYHA): N/A [facility]: Not obtained PLAN CONSULTS: Patient does not require consults for optimization at this time. The Following Tests/Procedures Have Been Initiated: None Instructions Given to Patient: Patient given verbal and written preop instructions and voices comprehension and compliance. SIGNATURE: Ivan Baxter MD PATIENT NAME: Misael Medina DATE: September 27, 2023 TIME: 3:45 PM PAGER/CONTACT #: Source Comments - [facility] In the event this information is protected by the Federal Confidentiality of Alcohol and Drug AbusePatient Records regulations: The Federal rules restrict any use of the information to criminally investigate or prosecute any alcohol or drug abuse patient. Reason for Visit Reason for Visit - Reason Comments Cataract Follow Up Right eye Post-op Cataract OS 08/26/2023 Encounter Details Encounter Details Date Type Department Care Team Description 09/27/2023 3:00 PM EST Office Visit [facility] Ophthalmology [address] [place] [address] Ivan Baxter MD [address] [place] [address] Combined form of age-related cataract, right eye (Primary Dx); 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 without macular edema, without long-term current use of insulin (HCC); Status post cataract extraction and insertion of intraocular lens of left eye; Central retinal artery occlusion, left eye; Operculated retinal tear of left eye; Essential hypertension; Hypercholesterolemia Social History - documented as of this encounter Social History Tobacco Use Types Packs/Day Years Used Date Smoking Tobacco: Never Smokeless Tobacco: Never Social History Alcohol Use Standard Drinks/Week Comments No 0 (1 standard drink = 0.6 oz pure alcohol) Social History Area Deprivation Index Answer Date Recorded National Score (1-100), lower number is lower risk 79 State Score (1-10), lower number is lower risk 7 Data from: https://www.neighborhoodatlas.[facility]/. Last address used for calculation [address] Social History Sex and Gender Information Value Date Recorded Sex Assigned at Not on file Gender Identity Not on file Sexual Orientation Not on file Last Filed Vital Signs - documented in this encounter Last Filed Vital Signs Vital Sign Reading Time Taken Comments Blood Pressure 187/72 09/27/2023 3:38 PM EST Pulse 72 09/27/2023 3:38 PM EST Temperature - - Respiratory Rate - - Oxygen Saturation - - Inhaled Oxygen Concentration - - Weight - - Height - - Body Mass Index - - Progress Notes - documented in this encounter Ivan Baxter MD - 09/27/2023 3:38 PM EST ASSESSMENT/PLAN: 1. Combined form of age-related cataract, right eye - ICD9: 366.19, ICD10: H25.811 (primary diagnosis) PHYSICAL EXAM: Vital Signs: Blood pressure 187/72, pulse 72. Respiratory: Normal breath sounds, no wheezing. CARD: Normal heart sounds 1 & 2, normal sinus rhythm. Cataract Presurgical Documentation Cataract: Right eye (OD) Current Visual Acuity Right Eye Distance CC 20/40 Left Eye Distance SC 20/200 Visual Function: Misael Medina states that the decline in vision from the cataract impedes herabilities as listed in the HPI, as well as other activities of daily living. Misael Medina has confirmed that she is no longer able to function adequately on a day-to-day basis because of her current visual condition. Further, it is my medical opinion that the cataract is the primary cause, or at least a significantly contributory cause of her visual dysfunction. With uncomplicated cataract surgery and lens implantation, it is my expectation that her visual function and quality of life will improve, significantly. The risks, benefits, alternatives, personnel and complications of cataract surgery with lens implantation were discussed with Misael Medina in detail. she appeared to understand and asked that Iproceed with plans for surgery. Upon eye examination, patient was found to have a visually significant cataract right eye . Discussed cataract surgery with patient and different intraocular lens implant options with patient: basic monofocal intraocular lens implant, Toric intraocular lens implant, and presbyopia correction intraocular lens implant. In my medical opinion, based on medical history and ocular examination, cataractsurgery with intraocular lens implant will correct patient's vision and improve quality of patient's daily living activities. Patient wishes to have traditional cataract surgery with basic intraocular lens right eye 09/30/2023. Patient wishes to have cataract surgery with the option stated above. Patient understands that an intraocular lens implant does not necessarily replace the need for glasses. Patient understands that it is impossible for the surgeon to inform him/her of every possible complication that may occur. The surgeon has answered all of the patient's questions. Patient understands that if he/she has a mature or dense cataract, pseudoexfoliation cataract, or history of use of Fl omax, he/she may require the use of [place]uyugin Ring and/or Vision Blue during surgery. Patient understands the risks, benefits, and alternatives to surgery. Continue as directed: Current Ophthalmic Meds fluorometholone (FML LIQUID FILM) 0.1 % ophthalmic suspension Use 1 Drop in the right eye three times a day. Systane Complete Artificial Tears - Use 1 Drop into both eyes three times a day. 2. 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 without macular edema, without long-term current use of insulin (HCC) - ICD9: 250.50, 362.04, ICD10: E11.3291 Please keep your blood sugar under good control to minimize risk of ocular complications from diabetes. Continue care with Dr. Girish Simon 3. Status post cataract extraction and insertion of intraocular lens of left eye - ICD9: V45.61, V43.1, ICD10: Z98.42, Z96.1 S/p cataract surgery 08/26/2023 Current Ophthalmic Meds keTORolac (ACULAR) 0.5 % ophthalmic solution Use 1 Drop in the left eye three times daily until 09/30/2023 prednisoLONE acetate (PRED FORTE) 1 % ophthalmic suspension Use 1 Drop in the left eye three times daily until 09/30/2023 4. History of Central retinal artery occlusion, left eye - ICD9: 362.31, ICD10: H34.[address] Chirinos's note -cilioretinal artery sparing -stable/monitor -rec good blood pressure control 5. Operculated retinal tear of left eye - ICD9: 361.32, ICD10: H33.312 Stable/observe -s/p retinopexy (10/01/22) 6. Essential hypertension - ICD9: 401.9, ICD10: I10 7. Hypercholesterolemia - ICD9: 272.0, ICD10: E78.00 Continue care with primary care physician Ivan Baxter MD I have confirmed and edited as necessary the relevant ophthalmic history, review of systems, surgical history, and ophthalmological examination findings as obtained by the ophthalmic technical staff.I have seen and examined Misael Medina. I have discussed the examination findings, diagnosis, and treatment options with Misael Medina and/or her family. I have also reviewed and agree withthe assessment and plan as stated above and agree with all its relevant components. I gave the patient the opportunity to ask questions about the findings, diagnosis, and treatment options. Plan of Treatment - documented as of this encounter Plan of Treatment - Upcoming Encounters Upcoming Encounters Date Type Department Care Team Description 10/01/2023 1:15 PM EST Office Visit [facility] Ophthalmology [address] [place] [address] Ivan Baxter MD [address] [place] [address] 1 DAY PO 2ND RE Plan of Treatment - Scheduled Procedures Scheduled Procedures Name Priority Associated Diagnoses Date/Time SURGERY AT [facility] Combined form of age-related cataract, right eye 09/30/2023 9:55 AM EST Procedures - documented in this encounter Procedures Procedure Name Priority Date/Time Associated Diagnosis Comments VISUAL FIELD 24-2 OU (BOTH EYES) Routine 09/27/2023 3:51 PM EST Central retinal artery occlusion, left eye Imaging Results - documented in this encounter VISUAL FIELD 24-2 OU (BOTH EYES) (09/27/2023 3:51 PM EST) Imaging Results - VISUAL FIELD 24-2 OU (BOTH EYES) (09/27/2023 3:51 PM EST) Anatomical Region Laterality Modality Other Imaging Results - VISUAL FIELD 24-2 OU (BOTH EYES) (09/27/2023 3:51 PM EST) Narrative 09/27/2023 3:51 PM EST Date of Procedure 09/27/2023. Reliability Right Eye Good. Left Eye Borderline. Interpretation Right Eye Normal. Left Eye Comments: (Advanced field loss). Interval Change Right Eye Stable. Left Eye Stable. Imaging Results - VISUAL FIELD 24-2 OU (BOTH EYES) (09/27/2023 3:51 PM EST) Ivan Baxter MD OPHTHALMOLOGY Associated Images 09/27/2023 VISUAL FIELD 24-2 OU (BOTH EYES) Visit Diagnoses - documented in this encounter Visit Diagnoses Diagnosis Combined form of age-related cataract, right eye - Primary 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 without macular edema, without long-term current use of insulin (HCC) Status post cataract extraction and insertion of intraocular lens of left eye Central retinal artery occlusion, left eye Central artery occlusion of retina Operculated retinal tear of left eye 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 Clinical Decision 05/05/2023 09/27/2023 Eye Exam Eye Exam - Visual Acuity (Snellen - Linear) Visual Acuity (Snellen - Linear) Right eye Left eye Dist sc 20/200 Dist cc 20/40 Near cc J6 Eye Exam - Tonometry (Applanation, 3:33 PM) Tonometry (Applanation, 3:33 PM) Right eye Left eye Pressure 18 18 Eye Exam - Pupils Pupils Pupils Dark Shape APD Right eye PERRL 4 Round None Left eye PERRL 4 Round None Eye Exam - Visual Sharma Visual Sharma Right eye Left eye Full Restrictions Total superior temporal, inferior temporal, superior nasal, inferior nasal deficiencies Eye Exam - Extraocular Movement Extraocular Movement Right eye Left eye Full Full Eye Exam - Neuro/Psych Neuro/Psych Oriented x3: Yes Mood/Affect: Normal Eye Exam - Glare Testing Glare Testing Medium High Right eye 20/80 20/100 Left eye LENSTAR Right eye: AL 23.32 ACD 3.28 WTW 11.95 Eye Exam - External Exam External Exam Right eye Left eye External Normal including orbits and preauricular lymph nodes Normal including orbits and preauricular lymph nodes Eye Exam - Slit Lamp Exam Slit Lamp Exam Right eye Left eye Lids/Lashes Upper lid dermatochalasis Upper lid dermatochalasis Conjunctiva/Sclera White and quiet White and quiet Cornea Normal epithelium, stroma, endothelium, and tear film Normal epithelium, stroma, endothelium, and tear film Anterior Chamber Deep and quiet Deep and quiet Iris Pupil dilates well Round and reactive Lens 3+ Nuclear sclerotic cataract, 3+ Posterior subcapsular cataract Posterior chamber intraocularlens Anterior Vitreous Vitreous floaters Vitreous floaters Eye Exam - Fundus Exam Fundus Exam Right eye Left eye Disc Normal Pallor C/D Ratio 0.1 0.2 Macula Retinal pigment epithelial mottling Blunt foveal reflex Vessels Normal Vascular attenuation Periphery Cobblestone degeneration Laser scar Eye Exam - Wearing Rx Wearing Rx Sphere Cylinder [place] Add Right eye -0.25 +1.25 070 +2.75 Left eye Eye Exam Type: PAL Eye Exam - Manifest Refraction (Auto) Manifest Refraction (Auto) Sphere Cylinder [place] Right eye -1.00 +1.00 065 Left eye -1.00 +0.50 080 Care Teams - documented as of this encounter Care Teams Mill Tender Second 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 Relationship Specialty Start Date End Date Girish Simon MD PCP - General Family Medicine 12/11/11 Yasmeen López MD Primary Staff Physician Cardiology 01/31/19 Patient Demographics Patient Demographics Patient Address Communication Language Race / Ethnicity Marital Status [address] (Home) [place] [address] Former (2011 - 2016): [address] ([address]) [place] [address] [email or web address] Korean (Preferred) White / Not or [facility] Work Phone: [phone]) 522-174211-16-2023 History and physical note* Ivan Baxter MD - 09/30/2023 8:34 AM EST Images from the original note were not included. H&P Notes - documented in this encounter Ivan Baxter MD - 09/27/2023 3:45 PM EST HISTORY AND PHYSICAL EXAMINATION SERVICE DATE: 09/27/2023 SERVICE TIME: PRIMARY CARE PHYSICIAN: Girish Simon MD, MD REASON FOR VISIT: Misael Medina is a 73 year old female who is being seen for combined age related cataract right eye The patient has the following: ACTIVE PROBLEM LIST Hypermetropia Regular Astigmatism Presbyopia Multiple Defects of Retina Without Detachment Type 2 Diabetes Mellitus With Right Eye Affected By Mild Nonproliferative Retinopathy Without Macular Edema, Without Long-Term Current Use of Insulin (Hcc) Central Retinal Artery Occlusion, Left Eye Essential Hypertension Stroke ([facility]) 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 TOTAL HIP REPLACEMENT Right 11/19/2022 FAMILY HISTORY Problem Relation Age of Onset No Ocular Disease Father Heart Father Diabetes Father Hypertension Father No Ocular Disease Mother Hypertension Mother Diabetes Mother No Ocular Disease Sister Diabetes Sister No Ocular Disease Brother No Ocular Disease Maternal Grandmother No Ocular Disease Maternal Grandfather No Ocular Disease Paternal Grandmother No Ocular Disease Paternal Grandfather SOCIAL HISTORY: Social History Tobacco Use Smoking status: Never Smokeless tobacco: Never Vaping Use Vaping Use: Never used Substance Use Topics Alcohol use: No Drug use: No MEDICATIONS: Prior to Admission medications as of 09/27/23 1538 Medication Sig Last Dose Taking keTORolac (ACULAR) 0.5 % ophthalmic solution Use 1 Drop in the left eye four times daily. Taking Yes prednisoLONE acetate (PRED FORTE) 1 % ophthalmic suspension Use 1 Drop in the left eye four times daily. Taking Yes fluorometholone (FML LIQUID FILM) 0.1 % ophthalmic suspension Use 1 Drop in the right eye three times a day. Taking Yes glipiZIDE (GLUCOTROL XL) 2.5 mg 24 hr tablet Taking Yes metFORMIN ER (GLUCOPHAGE XR) 500 mg 24 hr tablet Taking Yes pioglitazone (ACTOS) 30 mg tablet Taking Yes amLODIPine (NORVASC) 10 mg tablet Take 10 mg by mouth once daily. Taking Yes atorvastatin (LIPITOR) 10 mg tablet Take 10 mg by mouth once daily. Taking Yes levothyroxine (SYNTHROID) 100 mcg tablet Take 100 mcg by mouth once daily. Taking Yes acetaminophen (TYLENOL) 325 mg tablet Take 650 mg by mouth every 6 hours as needed. Taking Yes quinapril (ACCUPRIL) 20 mg tablet Take 2 tablets by mouth once daily. No medication comments found. CURRENT ALLERGIES: ALLERGIES Allergen Reactions Seasonal Allergies Other: See Comments Sinus issues REVIEW OF SYSTEMS: PAIN ASSESSMENT: General: No weight loss, malaise or fevers. Neuro: See HPI Respiratory: No history of current cough or dyspnea, or pneumonia in the past 6 weeks. No history of respiratory/pulmonary symptoms or problems Cardiovascular: Positive for: Hypertension GI: No history of GI symptoms or problems. No history of esophageal varices, recent ascites, or ETOH greater than 2 drinks per day. : No history of UTI in past 6 weeks. No history of renal failure. Not currently on or requiring dialysis. No history of symptoms or problems. 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 : Denies Endocrine: Diabetes Mellitus on oral agent Hematology: No history of bleeding or clotting disorder. Pt is not taking anti- coagulation or platelet medications. No history of hematological symptoms or problems. Oncology: No history of CA metastasis, chemo within 30 days, or radiotherapy within 90 days. Has not lost 10% of body wt in 6 months. No history of oncological symptoms or problems. Psych: No history of psychiatric symptoms or problems. Musculoskeletal: Negative for joint pain or swelling, back pain or muscle pain. Skin: Negative for lesions, rash and itching. PHYSICAL EXAM: VITALS: BP 187/72 Pulse 72 General: Alert and oriented Skin: Normal color, no rash, no lesions. HEENT: EOM, pupils equal, round and reactive. Cardiovascular: Normal S1 & S2, no rubs, murmurs or gallops. No JVD. Pulse regular. Lungs: Normal breath sounds, no wheezes or crackles. Abdomen: Soft, non-tender, no rigidity. Extremities: No deformity, no edema or tenderness, no joint swelling or clubbing. Neurological: Normal cognition and motor skills. Pulses: Carotid and radial pulses normal +2. Diagnostic tests reviewed for today's visit: No new labs or tests ASSESSMENT Medication and Non-Pharmacologic VTE Prophylaxis/Anticoagulants VTE Prophylaxis: VTE prophylaxis appropriate Impression: There is no known pertinent medical condition which may affect jett- operative course Clinical Risk Factors for Possible Cardiac Complications: None Patient is scheduled for a low-risk procedure. FUNCTIONAL STATUS: Walk indoors, such as around the house (1.75 METs) Functional Class (NYHA): N/A HealthQuest: Not obtained PLAN CONSULTS: Patient does not require consults for optimization at this time. The Following Tests/Procedures Have Been Initiated: None Instructions Given to Patient: Patient given verbal and written preop instructions and voices comprehension and compliance. SIGNATURE: Ivan Baxter MD PATIENT NAME: Misael Medina DATE: September 27, 2023 TIME: 3:45 PM PAGER/CONTACT #: Source Comments - [facility] In the event this information is protected by the Federal Confidentiality of Alcohol and Drug AbusePatient Records regulations: The Federal rules restrict any use of the information to criminally investigate or prosecute any alcohol or drug abuse patient. Reason for Visit Reason for Visit - Reason Comments Cataract Follow Up Right eye Post-op Cataract OS 08/26/2023 Encounter Details Encounter Details Date Type Department Care Team Description 09/27/2023 3:00 PM EST Office Visit [facility] Ophthalmology [address] [place] [address] [place] [address] Combined form of age-related cataract, right eye (Primary Dx); 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 without macular edema, without long-term current use of insulin (HCC); Status post cataract extraction and insertion of intraocular lens of left eye; Central retinal artery occlusion, left eye; Operculated retinal tear of left eye; Essential hypertension; Hypercholesterolemia Social History - documented as of this encounter Social History Tobacco Use Types Packs/Day Years Used Date Smoking Tobacco: Never Smokeless Tobacco: Never Social History Alcohol Use Standard Drinks/Week Comments No 0 (1 standard drink = 0.6 oz pure alcohol) Social History Area Deprivation Index Answer Date Recorded National Score (1-100), lower number is lower risk 79 State Score (1-10), lower number is lower risk 7 Data from: https://www.neighborhoodatlas.[facility]/. Last address used for calculation [address] Social History Sex and Gender Information Value Date Recorded Sex Assigned at Not on file Gender Identity Not on file Sexual Orientation Not on file Last Filed Vital Signs - documented in this encounter Last Filed Vital Signs Vital Sign Reading Time Taken Comments Blood Pressure 187/72 09/27/2023 3:38 PM EST Pulse 72 09/27/2023 3:38 PM EST Temperature - - Respiratory Rate - - Oxygen Saturation - - Inhaled Oxygen Concentration - - Weight - - Height - - Body Mass Index - - Progress Notes - documented in this encounter Ivan Baxter MD - 09/27/2023 3:38 PM EST ASSESSMENT/PLAN: 1. Combined form of age-related cataract, right eye - ICD9: 366.19, ICD10: H25.811 (primary diagnosis) PHYSICAL EXAM: Vital Signs: Blood pressure 187/72, pulse 72. Respiratory: Normal breath sounds, no wheezing. CARD: Normal heart sounds 1 & 2, normal sinus rhythm. Cataract Presurgical Documentation Cataract: Right eye (OD) Current Visual Acuity Right Eye Distance CC 20/40 Left Eye Distance SC 20/200 Visual Function: Misael Medina states that the decline in vision from the cataract impedes herabilities as listed in the HPI, as well as other activities of daily living. Misael Medina has confirmed that she is no longer able to function adequately on a day-to-day basis because of her current visual condition. Further, it is my medical opinion that the cataract is the primary cause, or at least a significantly contributory cause of her visual dysfunction. With uncomplicated cataract surgery and lens implantation, it is my expectation that her visual function and quality of life will improve, significantly. The risks, benefits, alternatives, personnel and complications of cataract surgery with lens implantation were discussed with Misael Medina in detail. she appeared to understand and asked that Iproceed with plans for surgery. Upon eye examination, patient was found to have a visually significant cataract right eye . Discussed cataract surgery with patient and different intraocular lens implant options with patient: basic monofocal intraocular lens implant, Toric intraocular lens implant, and presbyopia correction intraocular lens implant. In my medical opinion, based on medical history and ocular examination, cataractsurgery with intraocular lens implant will correct patient's vision and improve quality of patient's daily living activities. Patient wishes to have traditional cataract surgery with basic intraocular lens right eye 09/30/2023. Patient wishes to have cataract surgery with the option stated above. Patient understands that an intraocular lens implant does not necessarily replace the need for glasses. Patient understands that it is impossible for the surgeon to inform him/her of every possible complication that may occur. The surgeon has answered all of the patient's questions. Patient understands that if he/she has a mature or dense cataract, pseudoexfoliation cataract, or history of use of Fl omax, he/she may require the use of Maluyugin Ring and/or Vision Blue during surgery. Patient understands the risks, benefits, and alternatives to surgery. Continue as directed: Current Ophthalmic Meds fluorometholone (FML LIQUID FILM) 0.1 % ophthalmic suspension Use 1 Drop in the right eye three times a day. Systane Complete Artificial Tears - Use 1 Drop into both eyes three times a day. 2. 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 without macular edema, without long-term current use of insulin (HCC) - ICD9: 250.50, 362.04, ICD10: E11.3291 Please keep your blood sugar under good control to minimize risk of ocular complications from diabetes. Continue care with Dr. Girish Simon 3. Status post cataract extraction and insertion of intraocular lens of left eye - ICD9: V45.61, V43.1, ICD10: Z98.42, Z96.1 S/p cataract surgery 08/26/2023 Current Ophthalmic Meds keTORolac (ACULAR) 0.5 % ophthalmic solution Use 1 Drop in the left eye three times daily until 09/30/2023 prednisoLONE acetate (PRED FORTE) 1 % ophthalmic suspension Use 1 Drop in the left eye three times daily until 09/30/2023 4. History of Central retinal artery occlusion, left eye - ICD9: 362.31, ICD10: H34.[address] Chirinos's note -cilioretinal artery sparing -stable/monitor -rec good blood pressure control 5. Operculated retinal tear of left eye - ICD9: 361.32, ICD10: H33.312 Stable/observe -s/p retinopexy (10/01/22) 6. Essential hypertension - ICD9: 401.9, ICD10: I10 7. Hypercholesterolemia - ICD9: 272.0, ICD10: E78.00 Continue care with primary care physician Ivan Baxter MD I have confirmed and edited as necessary the relevant ophthalmic history, review of systems, surgical history, and ophthalmological examination findings as obtained by the ophthalmic technical staff.I have seen and examined Misael Medina. I have discussed the examination findings, diagnosis, and treatment options with Misael Medina and/or her family. I have also reviewed and agree withthe assessment and plan as stated above and agree with all its relevant components. I gave the patient the opportunity to ask questions about the findings, diagnosis, and treatment options. Plan of Treatment - documented as of this encounter Plan of Treatment - Upcoming Encounters Upcoming Encounters Date Type Department Care Team Description 10/01/2023 1:15 PM EST Office Visit [facility] Ophthalmology [address] [place] [address] Ivan Baxter MD [address] [place] [address] 1 DAY PO 2ND RE Plan of Treatment - Scheduled Procedures Scheduled Procedures Name Priority Associated Diagnoses Date/Time SURGERY AT [facility] Combined form of age-related cataract, right eye 09/30/2023 9:55 AM EST Procedures - documented in this encounter Procedures Procedure Name Priority Date/Time Associated Diagnosis Comments VISUAL FIELD 24-2 OU (BOTH EYES) Routine 09/27/2023 3:51 PM EST Central retinal artery occlusion, left eye Imaging Results - documented in this encounter VISUAL FIELD 24-2 OU (BOTH EYES) (09/27/2023 3:51 PM EST) Imaging Results - VISUAL FIELD 24-2 OU (BOTH EYES) (09/27/2023 3:51 PM EST) Anatomical Region Laterality Modality Other Imaging Results - VISUAL FIELD 24-2 OU (BOTH EYES) (09/27/2023 3:51 PM EST) Narrative 09/27/2023 3:51 PM EST Date of Procedure 09/27/2023. Reliability Right Eye Good. Left Eye Borderline. Interpretation Right Eye Normal. Left Eye Comments: (Advanced field loss). Interval Change Right Eye Stable. Left Eye Stable. Imaging Results - VISUAL FIELD 24-2 OU (BOTH EYES) (09/27/2023 3:51 PM EST) Ivan Baxter MD OPHTHALMOLOGY Associated Images 09/27/2023 VISUAL FIELD 24-2 OU (BOTH EYES) Visit Diagnoses - documented in this encounter Visit Diagnoses Diagnosis Combined form of age-related cataract, right eye - Primary 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 without macular edema, without long-term current use of insulin (HCC) Status post cataract extraction and insertion of intraocular lens of left eye Central retinal artery occlusion, left eye Central artery occlusion of retina Operculated retinal tear of left eye 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 Clinical Decision 05/05/2023 09/27/2023 Eye Exam Eye Exam - Visual Acuity (Snellen - Linear) Visual Acuity (Snellen - Linear) Right eye Left eye Dist sc 20/200 Dist cc 20/40 Near cc J6 Eye Exam - Tonometry (Applanation, 3:33 PM) Tonometry (Applanation, 3:33 PM) Right eye Left eye Pressure 18 18 Eye Exam - Pupils Pupils Pupils Dark Shape APD Right eye PERRL 4 Round None Left eye PERRL 4 Round None Eye Exam - Visual Sharma Visual Sharma Right eye Left eye Full Restrictions Total superior temporal, inferior temporal, superior nasal, inferior nasal deficiencies Eye Exam - Extraocular Movement Extraocular Movement Right eye Left eye Full Full Eye Exam - Neuro/Psych Neuro/Psych Oriented x3: Yes Mood/Affect: Normal Eye Exam - Glare Testing Glare Testing Medium High Right eye 20/80 20/100 Left eye LENSTAR Right eye: AL 23.32 ACD 3.28 WTW 11.95 Eye Exam - External Exam External Exam Right eye Left eye External Normal including orbits and preauricular lymph nodes Normal including orbits and preauricular lymph nodes Eye Exam - Slit Lamp Exam Slit Lamp Exam Right eye Left eye Lids/Lashes Upper lid dermatochalasis Upper lid dermatochalasis Conjunctiva/Sclera White and quiet White and quiet Cornea Normal epithelium, stroma, endothelium, and tear film Normal epithelium, stroma, endothelium, and tear film Anterior Chamber Deep and quiet Deep and quiet Iris Pupil dilates well Round and reactive Lens 3+ Nuclear sclerotic cataract, 3+ Posterior subcapsular cataract Posterior chamber intraocularlens Anterior Vitreous Vitreous floaters Vitreous floaters Eye Exam - Fundus Exam Fundus Exam Right eye Left eye Disc Normal Pallor C/D Ratio 0.1 0.2 Macula Retinal pigment epithelial mottling Blunt foveal reflex Vessels Normal Vascular attenuation Periphery Cobblestone degeneration Laser scar Eye Exam - Wearing Rx Wearing Rx Sphere Cylinder [place] Add Right eye -0.25 +1.25 070 +2.75 Left eye Eye Exam Type: PAL Eye Exam - Manifest Refraction (Auto) Manifest Refraction (Auto) Sphere Cylinder [place] Right eye -1.00 +1.00 065 Left eye -1.00 +0.50 080 Care Teams - documented as of this encounter Care Teams Mill Tender Second Operator Relationship Specialty Start Date End Date Girish Simon MD PCP - General Family Medicine 12/11/11 Yasmeen López MD Primary Staff Physician Cardiology 01/31/19 Patient Demographics Patient Demographics Patient Address Communication Language Race / Ethnicity Marital Status [address] (Home) [place] [address] Former (2011 - 2016): [address] ([address]) [place] [address] [email or web address] Korean (Preferred) White / Not or [facility] Work Phone: [phone] 916-754211-16-2023 History and physical note* Ivan Baxter MD - 09/30/2023 8:34 AM EST H&P reviewed. The patient was examined and there are no changes to the H&P. Source Note - Ivan Baxter MD - 09/30/2023 8:34 AM EST Images from the original note were not included. H&P Notes - documented in this encounter Ivan Baxter MD - 09/27/2023 3:45 PM EST HISTORY AND PHYSICAL EXAMINATION SERVICE DATE: 09/27/2023 SERVICE TIME: PRIMARY CARE PHYSICIAN: Girish Simon MD, MD REASON FOR VISIT: Misael Medina is a 73 year old female who is being seen for combined age related cataract right eye The patient has the following: ACTIVE PROBLEM LIST Hypermetropia Regular Astigmatism Presbyopia Multiple Defects of Retina Without Detachment Type 2 Diabetes Mellitus With Right Eye Affected By Mild Nonproliferative Retinopathy Without Macular Edema, Without Long-Term Current Use of Insulin (Hcc) Central Retinal Artery Occlusion, Left Eye Essential Hypertension Stroke (Hcc) 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 TOTAL HIP REPLACEMENT Right 11/19/2022 FAMILY HISTORY Problem Relation Age of Onset No Ocular Disease Father Heart Father Diabetes Father Hypertension Father No Ocular Disease Mother Hypertension Mother Diabetes Mother No Ocular Disease Sister Diabetes Sister No Ocular Disease Brother No Ocular Disease Maternal Grandmother No Ocular Disease Maternal Grandfather No Ocular Disease Paternal Grandmother No Ocular Disease Paternal Grandfather SOCIAL HISTORY: Social History Tobacco Use Smoking status: Never Smokeless tobacco: Never Vaping Use Vaping Use: Never used Substance Use Topics Alcohol use: No Drug use: No MEDICATIONS: Prior to Admission medications as of 09/27/23 [id number] Medication Sig Last Dose Taking keTORolac (ACULAR) 0.5 % ophthalmic solution Use 1 Drop in the left eye four times daily. Taking Yes prednisoLONE acetate (PRED FORTE) 1 % ophthalmic suspension Use 1 Drop in the left eye four times daily. Taking Yes fluorometholone (FML LIQUID FILM) 0.1 % ophthalmic suspension Use 1 Drop in the right eye three times a day. Taking Yes glipiZIDE (GLUCOTROL XL) 2.5 mg 24 hr tablet Taking Yes metFORMIN ER (GLUCOPHAGE XR) 500 mg 24 hr tablet Taking Yes pioglitazone (ACTOS) 30 mg tablet Taking Yes amLODIPine (NORVASC) 10 mg tablet Take 10 mg by mouth once daily. Taking Yes atorvastatin (LIPITOR) 10 mg tablet Take 10 mg by mouth once daily. Taking Yes levothyroxine (SYNTHROID) 100 mcg tablet Take 100 mcg by mouth once daily. Taking Yes acetaminophen (TYLENOL) 325 mg tablet Take 650 mg by mouth every 6 hours as needed. Taking Yes quinapril (ACCUPRIL) 20 mg tablet Take 2 tablets by mouth once daily. No medication comments found. CURRENT ALLERGIES: ALLERGIES Allergen Reactions Seasonal Allergies Other: See Comments Sinus issues REVIEW OF SYSTEMS: PAIN ASSESSMENT: General: No weight loss, malaise or fevers. Neuro: See HPI Respiratory: No history of current cough or dyspnea, or pneumonia in the past 6 weeks. No history of respiratory/pulmonary symptoms or problems Cardiovascular: Positive for: Hypertension GI: No history of GI symptoms or problems. No history of esophageal varices, recent ascites, or ETOH greater than 2 drinks per day. : No history of UTI in past 6 weeks. No history of renal failure. Not currently on or requiring dialysis. No history of symptoms or problems. 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 : Denies Endocrine: Diabetes Mellitus on oral agent Hematology: No history of bleeding or clotting disorder. Pt is not taking anti- coagulation or platelet medications. No history of hematological symptoms or problems. Oncology: No history of CA metastasis, chemo within 30 days, or radiotherapy within 90 days. Has not lost 10% of body wt in 6 months. No history of oncological symptoms or problems. Psych: No history of psychiatric symptoms or problems. Musculoskeletal: Negative for joint pain or swelling, back pain or muscle pain. Skin: Negative for lesions, rash and itching. PHYSICAL EXAM: VITALS: BP 187/72 Pulse 72 General: Alert and oriented Skin: Normal color, no rash, no lesions. HEENT: EOM, pupils equal, round and reactive. Cardiovascular: Normal S1 & S2, no rubs, murmurs or gallops. No JVD. Pulse regular. Lungs: Normal breath sounds, no wheezes or crackles. Abdomen: Soft, non-tender, no rigidity. Extremities: No deformity, no edema or tenderness, no joint swelling or clubbing. Neurological: Normal cognition and motor skills. Pulses: Carotid and radial pulses normal +2. Diagnostic tests reviewed for today's visit: No new labs or tests ASSESSMENT Medication and Non-Pharmacologic VTE Prophylaxis/Anticoagulants VTE Prophylaxis: VTE prophylaxis appropriate Impression: There is no known pertinent medical condition which may affect jett- operative course Clinical Risk Factors for Possible Cardiac Complications: None Patient is scheduled for a low-risk procedure. FUNCTIONAL STATUS: Walk indoors, such as around the house (1.75 METs) Functional Class (NYHA): N/A [facility]: Not obtained PLAN CONSULTS: Patient does not require consults for optimization at this time. The Following Tests/Procedures Have Been Initiated: None Instructions Given to Patient: Patient given verbal and written preop instructions and voices comprehension and compliance. SIGNATURE: Ivan Baxter MD PATIENT NAME: Misael Medina DATE: September 27, 2023 TIME: 3:45 PM PAGER/CONTACT #: Source Comments - [facility] In the event this information is protected by the Federal Confidentiality of Alcohol and Drug AbusePatient Records regulations: The Federal rules restrict any use of the information to criminally investigate or prosecute any alcohol or drug abuse patient. Reason for Visit Reason for Visit - Reason Comments Cataract Follow Up Right eye Post-op Cataract OS 08/26/2023 Encounter Details Encounter Details Date Type Department Care Team Description 09/27/2023 3:00 PM EST Office Visit [facility] Ophthalmology [address] [place] [address] Ivan Baxter MD [address] [place] [address] Combined form of age-related cataract, right eye (Primary Dx); 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 without macular edema, without long-term current use of insulin (HCC); Status post cataract extraction and insertion of intraocular lens of left eye; Central retinal artery occlusion, left eye; Operculated retinal tear of left eye; Essential hypertension; Hypercholesterolemia Social History - documented as of this encounter Social History Tobacco Use Types Packs/Day Years Used Date Smoking Tobacco: Never Smokeless Tobacco: Never Social History Alcohol Use Standard Drinks/Week Comments No 0 (1 standard drink = 0.6 oz pure alcohol) Social History Area Deprivation Index Answer Date Recorded National Score (1-100), lower number is lower risk 79 State Score (1-10), lower number is lower risk 7 Data from: https://www.neighborhoodatlas.medicine[facility].edu/. Last address used for calculation [address] Social History Sex and Gender Information Value Date Recorded Sex Assigned at Not on file Gender Identity Not on file Sexual Orientation Not on file Last Filed Vital Signs - documented in this encounter Last Filed Vital Signs Vital Sign Reading Time Taken Comments Blood Pressure 187/72 09/27/2023 3:38 PM EST Pulse 72 09/27/2023 3:38 PM EST Temperature - - Respiratory Rate - - Oxygen Saturation - - Inhaled Oxygen Concentration - - Weight - - Height - - Body Mass Index - - Progress Notes - documented in this encounter Ivan Baxter MD - 09/27/2023 3:38 PM EST ASSESSMENT/PLAN: 1. Combined form of age-related cataract, right eye - ICD9: 366.19, ICD10: H25.811 (primary diagnosis) PHYSICAL EXAM: Vital Signs: Blood pressure 187/72, pulse 72. Respiratory: Normal breath sounds, no wheezing. CARD: Normal heart sounds 1 & 2, normal sinus rhythm. Cataract Presurgical Documentation Cataract: Right eye (OD) Current Visual Acuity Right Eye Distance CC 20/40 Left Eye Distance SC 20/200 Visual Function: Misael Medina states that the decline in vision from the cataract impedes herabilities as listed in the HPI, as well as other activities of daily living. Misael Medina has confirmed that she is no longer able to function adequately on a day-to-day basis because of her current visual condition. Further, it is my medical opinion that the cataract is the primary cause, or at least a significantly contributory cause of her visual dysfunction. With uncomplicated cataract surgery and lens implantation, it is my expectation that her visual function and quality of life will improve, significantly. The risks, benefits, alternatives, personnel and complications of cataract surgery with lens implantation were discussed with Misael Medina in detail. she appeared to understand and asked that Iproceed with plans for surgery. Upon eye examination, patient was found to have a visually significant cataract right eye . Discussed cataract surgery with patient and different intraocular lens implant options with patient: basic monofocal intraocular lens implant, Toric intraocular lens implant, and presbyopia correction intraocular lens implant. In my medical opinion, based on medical history and ocular examination, cataractsurgery with intraocular lens implant will correct patient's vision and improve quality of patient's daily living activities. Patient wishes to have traditional cataract surgery with basic intraocular lens right eye 09/30/2023. Patient wishes to have cataract surgery with the option stated above. Patient understands that an intraocular lens implant does not necessarily replace the need for glasses. Patient understands that it is impossible for the surgeon to inform him/her of every possible complication that may occur. The surgeon has answered all of the patient's questions. Patient understands that if he/she has a mature or dense cataract, pseudoexfoliation cataract, or history of use of Fl omax, he/she may require the use of Maluyugin Ring and/or Vision Blue during surgery. Patient understands the risks, benefits, and alternatives to surgery. Continue as directed: Current Ophthalmic Meds fluorometholone (FML LIQUID FILM) 0.1 % ophthalmic suspension Use 1 Drop in the right eye three times a day. Systane Complete Artificial Tears - Use 1 Drop into both eyes three times a day. 2. 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 without macular edema, without long-term current use of insulin (HCC) - ICD9: 250.50, 362.04, ICD10: E11.3291 Please keep your blood sugar under good control to minimize risk of ocular complications from diabetes. Continue care with Dr. Girish Simon 3. Status post cataract extraction and insertion of intraocular lens of left eye - ICD9: V45.61, V43.1, ICD10: Z98.42, Z96.1 S/p cataract surgery 08/26/2023 Current Ophthalmic Meds keTORolac (ACULAR) 0.5 % ophthalmic solution Use 1 Drop in the left eye three times daily until 09/30/2023 prednisoLONE acetate (PRED FORTE) 1 % ophthalmic suspension Use 1 Drop in the left eye three times daily until 09/30/2023 4. History of Central retinal artery occlusion, left eye - ICD9: 362.31, ICD10: H34.[address] Chirinos's note -cilioretinal artery sparing -stable/monitor -rec good blood pressure control 5. Operculated retinal tear of left eye - ICD9: 361.32, ICD10: H33.312 Stable/observe -s/p retinopexy (10/01/22) 6. Essential hypertension - ICD9: 401.9, ICD10: I10 7. Hypercholesterolemia - ICD9: 272.0, ICD10: E78.00 Continue care with primary care physician Ivan Baxter MD I have confirmed and edited as necessary the relevant ophthalmic history, review of systems, surgical history, and ophthalmological examination findings as obtained by the ophthalmic technical staff.I have seen and examined Misael Medina. I have discussed the examination findings, diagnosis, and treatment options with Misael Villavicenciojaqueline and/or her family. I have also reviewed and agree withthe assessment and plan as stated above and agree with all its relevant components. I gave the patient the opportunity to ask questions about the findings, diagnosis, and treatment options. Plan of Treatment - documented as of this encounter Plan of Treatment - Upcoming Encounters Upcoming Encounters Date Type Department Care Team Description 10/01/2023 1:15 PM EST Office Visit [facility] Ophthalmology [address] [place] [id number] Ivan Baxter MD [address] [place] [address] 1 DAY PO 2ND RE Plan of Treatment - Scheduled Procedures Scheduled Procedures Name Priority Associated Diagnoses Date/Time SURGERY AT [facility] Combined form of age-related cataract, right eye 09/30/2023 9:55 AM EST Procedures - documented in this encounter Procedures Procedure Name Priority Date/Time Associated Diagnosis Comments VISUAL FIELD 24-2 OU (BOTH EYES) Routine 09/27/2023 3:51 PM EST Central retinal artery occlusion, left eye Imaging Results - documented in this encounter VISUAL FIELD 24-2 OU (BOTH EYES) (09/27/2023 3:51 PM EST) Imaging Results - VISUAL FIELD 24-2 OU (BOTH EYES) (09/27/2023 3:51 PM EST) Anatomical Region Laterality Modality Other Imaging Results - VISUAL FIELD 24-2 OU (BOTH EYES) (09/27/2023 3:51 PM EST) Narrative 09/27/2023 3:51 PM EST Date of Procedure 09/27/2023. Reliability Right Eye Good. Left Eye Borderline. Interpretation Right Eye Normal. Left Eye Comments: (Advanced field loss). Interval Change Right Eye Stable. Left Eye Stable. Imaging Results - VISUAL FIELD 24-2 OU (BOTH EYES) (09/27/2023 3:51 PM EST) Ivan Baxter MD OPHTHALMOLOGY Associated Images 09/27/2023 VISUAL FIELD 24-2 OU (BOTH EYES) Visit Diagnoses - documented in this encounter Visit Diagnoses Diagnosis Combined form of age-related cataract, right eye - Primary 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 without macular edema, without long-term current use of insulin (HCC) Status post cataract extraction and insertion of intraocular lens of left eye Central retinal artery occlusion, left eye Central artery occlusion of retina Operculated retinal tear of left eye 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 Clinical Decision 05/05/2023 09/27/2023 Eye Exam Eye Exam - Visual Acuity (Snellen - Linear) Visual Acuity (Snellen - Linear) Right eye Left eye Dist sc 20/200 Dist cc 20/40 Near cc J6 Eye Exam - Tonometry (Applanation, 3:33 PM) Tonometry (Applanation, 3:33 PM) Right eye Left eye Pressure 18 18 Eye Exam - Pupils Pupils Pupils Dark Shape APD Right eye PERRL 4 Round None Left eye PERRL 4 Round None Eye Exam - Visual Sharma Visual Sharma Right eye Left eye Full Restrictions Total superior temporal, inferior temporal, superior nasal, inferior nasal deficiencies Eye Exam - Extraocular Movement Extraocular Movement Right eye Left eye Full Full Eye Exam - Neuro/Psych Neuro/Psych Oriented x3: Yes Mood/Affect: Normal Eye Exam - Glare Testing Glare Testing Medium High Right eye 20/80 20/100 Left eye LENSTAR Right eye: AL 23.32 ACD 3.28 WTW 11.95 Eye Exam - External Exam External Exam Right eye Left eye External Normal including orbits and preauricular lymph nodes Normal including orbits and preauricular lymph nodes Eye Exam - Slit Lamp Exam Slit Lamp Exam Right eye Left eye Lids/Lashes Upper lid dermatochalasis Upper lid dermatochalasis Conjunctiva/Sclera White and quiet White and quiet Cornea Normal epithelium, stroma, endothelium, and tear film Normal epithelium, stroma, endothelium, and tear film Anterior Chamber Deep and quiet Deep and quiet Iris Pupil dilates well Round and reactive Lens 3+ Nuclear sclerotic cataract, 3+ Posterior subcapsular cataract Posterior chamber intraocularlens Anterior Vitreous Vitreous floaters Vitreous floaters Eye Exam - Fundus Exam Fundus Exam Right eye Left eye Disc Normal Pallor C/D Ratio 0.1 0.2 Macula Retinal pigment epithelial mottling Blunt foveal reflex Vessels Normal Vascular attenuation Periphery Cobblestone degeneration Laser scar Eye Exam - Wearing Rx Wearing Rx Sphere Cylinder [place] Add Right eye -0.25 +1.25 070 +2.75 Left eye Eye Exam Type: PAL Eye Exam - Manifest Refraction (Auto) Manifest Refraction (Auto) Sphere Cylinder [place] Right eye -1.00 +1.00 065 Left eye -1.00 +0.50 080 Care Teams - documented as of this encounter Care Teams Mill Tender Second Operator Relationship Specialty Start Date End Date Girish Simon MD PCP - General Family Medicine 12/11/11 Yasmeen López MD Primary Staff Physician Cardiology 01/31/19 Patient Demographics Patient Demographics Patient Address Communication Language Race / Ethnicity Marital Status [address] (Home) [place] [address] Former (2011 - 2016): [address] ([address]) [place] [address] [email or web address] Korean (Preferred) White / Not or * Ivan Baxter MD - 09/30/2023 8:34 AM EST Images from the original note were not included. H&P Notes - documented in this encounter Ivan Baxter MD - 09/27/2023 3:45 PM EST HISTORY AND PHYSICAL EXAMINATION SERVICE DATE: 09/27/2023 SERVICE TIME: PRIMARY CARE PHYSICIAN: Girish Simon MD, MD REASON FOR VISIT: Misael Medina is a 73 year old female who is being seen for combined age related cataract right eye The patient has the following: ACTIVE PROBLEM LIST Hypermetropia Regular Astigmatism Presbyopia Multiple Defects of Retina Without Detachment Type 2 Diabetes Mellitus With Right Eye Affected By Mild Nonproliferative Retinopathy Without Macular Edema, Without Long-Term Current Use of Insulin (Hcc) Central Retinal Artery Occlusion, Left Eye Essential Hypertension Stroke (Hcc) 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 TOTAL HIP REPLACEMENT Right 11/19/2022 FAMILY HISTORY Problem Relation Age of Onset No Ocular Disease Father Heart Father Diabetes Father Hypertension Father No Ocular Disease Mother Hypertension Mother Diabetes Mother No Ocular Disease Sister Diabetes Sister No Ocular Disease Brother No Ocular Disease Maternal Grandmother No Ocular Disease Maternal Grandfather No Ocular Disease Paternal Grandmother No Ocular Disease Paternal Grandfather SOCIAL HISTORY: Social History Tobacco Use Smoking status: Never Smokeless tobacco: Never Vaping Use Vaping Use: Never used Substance Use Topics Alcohol use: No Drug use: No MEDICATIONS: Prior to Admission medications as of 09/27/23 1538 Medication Sig Last Dose Taking keTORolac (ACULAR) 0.5 % ophthalmic solution Use 1 Drop in the left eye four times daily. Taking Yes prednisoLONE acetate (PRED FORTE) 1 % ophthalmic suspension Use 1 Drop in the left eye four times daily. Taking Yes fluorometholone (FML LIQUID FILM) 0.1 % ophthalmic suspension Use 1 Drop in the right eye three times a day. Taking Yes glipiZIDE (GLUCOTROL XL) 2.5 mg 24 hr tablet Taking Yes metFORMIN ER (GLUCOPHAGE XR) 500 mg 24 hr tablet Taking Yes pioglitazone (ACTOS) 30 mg tablet Taking Yes amLODIPine (NORVASC) 10 mg tablet Take 10 mg by mouth once daily. Taking Yes atorvastatin (LIPITOR) 10 mg tablet Take 10 mg by mouth once daily. Taking Yes levothyroxine (SYNTHROID) 100 mcg tablet Take 100 mcg by mouth once daily. Taking Yes acetaminophen (TYLENOL) 325 mg tablet Take 650 mg by mouth every 6 hours as needed. Taking Yes quinapril (ACCUPRIL) 20 mg tablet Take 2 tablets by mouth once daily. No medication comments found. CURRENT ALLERGIES: ALLERGIES Allergen Reactions Seasonal Allergies Other: See Comments Sinus issues REVIEW OF SYSTEMS: PAIN ASSESSMENT: General: No weight loss, malaise or fevers. Neuro: See HPI Respiratory: No history of current cough or dyspnea, or pneumonia in the past 6 weeks. No history of respiratory/pulmonary symptoms or problems Cardiovascular: Positive for: Hypertension GI: No history of GI symptoms or problems. No history of esophageal varices, recent ascites, or ETOH greater than 2 drinks per day. : No history of UTI in past 6 weeks. No history of renal failure. Not currently on or requiring dialysis. No history of symptoms or problems. 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 : Denies Endocrine: Diabetes Mellitus on oral agent Hematology: No history of bleeding or clotting disorder. Pt is not taking anti- coagulation or platelet medications. No history of hematological symptoms or problems. Oncology: No history of CA metastasis, chemo within 30 days, or radiotherapy within 90 days. Has not lost 10% of body wt in 6 months. No history of oncological symptoms or problems. Psych: No history of psychiatric symptoms or problems. Musculoskeletal: Negative for joint pain or swelling, back pain or muscle pain. Skin: Negative for lesions, rash and itching. PHYSICAL EXAM: VITALS: BP 187/72 Pulse 72 General: Alert and oriented Skin: Normal color, no rash, no lesions. HEENT: EOM, pupils equal, round and reactive. Cardiovascular: Normal S1 & S2, no rubs, murmurs or gallops. No JVD. Pulse regular. Lungs: Normal breath sounds, no wheezes or crackles. Abdomen: Soft, non-tender, no rigidity. Extremities: No deformity, no edema or tenderness, no joint swelling or clubbing. Neurological: Normal cognition and motor skills. Pulses: Carotid and radial pulses normal +2. Diagnostic tests reviewed for today's visit: No new labs or tests ASSESSMENT Medication and Non-Pharmacologic VTE Prophylaxis/Anticoagulants VTE Prophylaxis: VTE prophylaxis appropriate Impression: There is no known pertinent medical condition which may affect jett- operative course Clinical Risk Factors for Possible Cardiac Complications: None Patient is scheduled for a low-risk procedure. FUNCTIONAL STATUS: Walk indoors, such as around the house (1.75 METs) Functional Class (NYHA): N/A [facility]: Not obtained PLAN CONSULTS: Patient does not require consults for optimization at this time. The Following Tests/Procedures Have Been Initiated: None Instructions Given to Patient: Patient given verbal and written preop instructions and voices comprehension and compliance. SIGNATURE: Ivan Baxter MD PATIENT NAME: Misael Medina DATE: September 27, 2023 TIME: 3:45 PM PAGER/CONTACT #: Source Comments - [facility] In the event this information is protected by the Federal Confidentiality of Alcohol and Drug AbusePatient Records regulations: The Federal rules restrict any use of the information to criminally investigate or prosecute any alcohol or drug abuse patient. Reason for Visit Reason for Visit - Reason Comments Cataract Follow Up Right eye Post-op Cataract OS 08/26/2023 Encounter Details Encounter Details Date Type Department Care Team Description 09/27/2023 3:00 PM EST Office Visit [facility] Ophthalmology [address] [place] [address] Ivan Baxter MD [address] [place], [place] [id number] Combined form of age-related cataract, right eye (Primary Dx); 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 without macular edema, without long-term current use of insulin (HCC); Status post cataract extraction and insertion of intraocular lens of left eye; Central retinal artery occlusion, left eye; Operculated retinal tear of left eye; Essential hypertension; Hypercholesterolemia Social History - documented as of this encounter Social History Tobacco Use Types Packs/Day Years Used Date Smoking Tobacco: Never Smokeless Tobacco: Never Social History Alcohol Use Standard Drinks/Week Comments No 0 (1 standard drink = 0.6 oz pure alcohol) Social History Area Deprivation Index Answer Date Recorded National Score (1-100), lower number is lower risk 79 State Score (1-10), lower number is lower risk 7 Data from: https://www.neighborhoodatlas.medicine.[facility].edu/. Last address used for calculation [address] Social History Sex and Gender Information Value Date Recorded Sex Assigned at Not on file Gender Identity Not on file Sexual Orientation Not on file Last Filed Vital Signs - documented in this encounter Last Filed Vital Signs Vital Sign Reading Time Taken Comments Blood Pressure 187/72 09/27/2023 3:38 PM EST Pulse 72 09/27/2023 3:38 PM EST Temperature - - Respiratory Rate - - Oxygen Saturation - - Inhaled Oxygen Concentration - - Weight - - Height - - Body Mass Index - - Progress Notes - documented in this encounter Ivan Baxter MD - 09/27/2023 3:38 PM EST ASSESSMENT/PLAN: 1. Combined form of age-related cataract, right eye - ICD9: 366.19, ICD10: H25.811 (primary diagnosis) PHYSICAL EXAM: Vital Signs: Blood pressure 187/72, pulse 72. Respiratory: Normal breath sounds, no wheezing. CARD: Normal heart sounds 1 & 2, normal sinus rhythm. Cataract Presurgical Documentation Cataract: Right eye (OD) Current Visual Acuity Right Eye Distance CC 20/40 Left Eye Distance SC 20/200 Visual Function: Misael Renée Medina states that the decline in vision from the cataract impedes herabilities as listed in the HPI, as well as other activities of daily living. Misael Medina has confirmed that she is no longer able to function adequately on a day-to-day basis because of her current visual condition. Further, it is my medical opinion that the cataract is the primary cause, or at least a significantly contributory cause of her visual dysfunction. With uncomplicated cataract surgery and lens implantation, it is my expectation that her visual function and quality of life will improve, significantly. The risks, benefits, alternatives, personnel and complications of cataract surgery with lens implantation were discussed with Misael Medina in detail. she appeared to understand and asked that Iproceed with plans for surgery. Upon eye examination, patient was found to have a visually significant cataract right eye . Discussed cataract surgery with patient and different intraocular lens implant options with patient: basic monofocal intraocular lens implant, Toric intraocular lens implant, and presbyopia correction intraocular lens implant. In my medical opinion, based on medical history and ocular examination, cataractsurgery with intraocular lens implant will correct patient's vision and improve quality of patient's daily living activities. Patient wishes to have traditional cataract surgery with basic intraocular lens right eye 09/30/2023. Patient wishes to have cataract surgery with the option stated above. Patient understands that an intraocular lens implant does not necessarily replace the need for glasses. Patient understands that it is impossible for the surgeon to inform him/her of every possible complication that may occur. The surgeon has answered all of the patient's questions. Patient understands that if he/she has a mature or dense cataract, pseudoexfoliation cataract, or history of use of Fl omax, he/she may require the use of Maluyugin Ring and/or Vision Blue during surgery. Patient understands the risks, benefits, and alternatives to surgery. Continue as directed: Current Ophthalmic Meds fluorometholone (FML LIQUID FILM) 0.1 % ophthalmic suspension Use 1 Drop in the right eye three times a day. Systane Complete Artificial Tears - Use 1 Drop into both eyes three times a day. 2. 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 without macular edema, without long-term current use of insulin (HCC) - ICD9: 250.50, 362.04, ICD10: E11.3291 Please keep your blood sugar under good control to minimize risk of ocular complications from diabetes. Continue care with Dr. Girish Simon 3. Status post cataract extraction and insertion of intraocular lens of left eye - ICD9: V45.61, V43.1, ICD10: Z98.42, Z96.1 S/p cataract surgery 08/26/2023 Current Ophthalmic Meds keTORolac (ACULAR) 0.5 % ophthalmic solution Use 1 Drop in the left eye three times daily until 09/30/2023 prednisoLONE acetate (PRED FORTE) 1 % ophthalmic suspension Use 1 Drop in the left eye three times daily until 09/30/2023 4. History of Central retinal artery occlusion, left eye - ICD9: 362.31, ICD10: H34.[address] Chirinos's note -cilioretinal artery sparing -stable/monitor -rec good blood pressure control 5. Operculated retinal tear of left eye - ICD9: 361.32, ICD10: H33.312 Stable/observe -s/p retinopexy (10/01/22) 6. Essential hypertension - ICD9: 401.9, ICD10: I10 7. Hypercholesterolemia - ICD9: 272.0, ICD10: E78.00 Continue care with primary care physician Ivan Baxter MD I have confirmed and edited as necessary the relevant ophthalmic history, review of systems, surgical history, and ophthalmological examination findings as obtained by the ophthalmic technical staff.I have seen and examined Misael Medina. I have discussed the examination findings, diagnosis, and treatment options with Misael Medina and/or her family. I have also reviewed and agree withthe assessment and plan as stated above and agree with all its relevant components. I gave the patient the opportunity to ask questions about the findings, diagnosis, and treatment options. Plan of Treatment - documented as of this encounter Plan of Treatment - Upcoming Encounters Upcoming Encounters Date Type Department Care Team Description 10/01/2023 1:15 PM EST Office Visit [facility] Ophthalmology [address] [place] [address] Ivan Baxter MD [address] [place] [address] 1 DAY PO 2ND RE Plan of Treatment - Scheduled Procedures Scheduled Procedures Name Priority Associated Diagnoses Date/Time SURGERY AT [facility] Combined form of age-related cataract, right eye 09/30/2023 9:55 AM EST Procedures - documented in this encounter Procedures Procedure Name Priority Date/Time Associated Diagnosis Comments VISUAL FIELD 24-2 OU (BOTH EYES) Routine 09/27/2023 3:51 PM EST Central retinal artery occlusion, left eye Imaging Results - documented in this encounter VISUAL FIELD 24-2 OU (BOTH EYES) (09/27/2023 3:51 PM EST) Imaging Results - VISUAL FIELD 24-2 OU (BOTH EYES) (09/27/2023 3:51 PM EST) Anatomical Region Laterality Modality Other Imaging Results - VISUAL FIELD 24-2 OU (BOTH EYES) (09/27/2023 3:51 PM EST) Narrative 09/27/2023 3:51 PM EST Date of Procedure 09/27/2023. Reliability Right Eye Good. Left Eye Borderline. Interpretation Right Eye Normal. Left Eye Comments: (Advanced field loss). Interval Change Right Eye Stable. Left Eye Stable. Imaging Results - VISUAL FIELD 24-2 OU (BOTH EYES) (09/27/2023 3:51 PM EST) Ivan Baxter MD OPHTHALMOLOGY Associated Images 09/27/2023 VISUAL FIELD 24-2 OU (BOTH EYES) Visit Diagnoses - documented in this encounter Visit Diagnoses Diagnosis Combined form of age-related cataract, right eye - Primary 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 without macular edema, without long-term current use of insulin (HCC) Status post cataract extraction and insertion of intraocular lens of left eye Central retinal artery occlusion, left eye Central artery occlusion of retina Operculated retinal tear of left eye 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 Clinical Decision 05/05/2023 09/27/2023 Eye Exam Eye Exam - Visual Acuity (Snellen - Linear) Visual Acuity (Snellen - Linear) Right eye Left eye Dist sc 20/200 Dist cc 20/40 Near cc J6 Eye Exam - Tonometry (Applanation, 3:33 PM) Tonometry (Applanation, 3:33 PM) Right eye Left eye Pressure 18 18 Eye Exam - Pupils Pupils Pupils Dark Shape APD Right eye PERRL 4 Round None Left eye PERRL 4 Round None Eye Exam - Visual Sharma Visual Sharma Right eye Left eye Full Restrictions Total superior temporal, inferior temporal, superior nasal, inferior nasal deficiencies Eye Exam - Extraocular Movement Extraocular Movement Right eye Left eye Full Full Eye Exam - Neuro/Psych Neuro/Psych Oriented x3: Yes Mood/Affect: Normal Eye Exam - Glare Testing Glare Testing Medium High Right eye 20/80 20/100 Left eye LENSTAR Right eye: AL 23.32 ACD 3.28 WTW 11.95 Eye Exam - External Exam External Exam Right eye Left eye External Normal including orbits and preauricular lymph nodes Normal including orbits and preauricular lymph nodes Eye Exam - Slit Lamp Exam Slit Lamp Exam Right eye Left eye Lids/Lashes Upper lid dermatochalasis Upper lid dermatochalasis Conjunctiva/Sclera White and quiet White and quiet Cornea Normal epithelium, stroma, endothelium, and tear film Normal epithelium, stroma, endothelium, and tear film Anterior Chamber Deep and quiet Deep and quiet Iris Pupil dilates well Round and reactive Lens 3+ Nuclear sclerotic cataract, 3+ Posterior subcapsular cataract Posterior chamber intraocularlens Anterior Vitreous Vitreous floaters Vitreous floaters Eye Exam - Fundus Exam Fundus Exam Right eye Left eye Disc Normal Pallor C/D Ratio 0.1 0.2 Macula Retinal pigment epithelial mottling Blunt foveal reflex Vessels Normal Vascular attenuation Periphery Cobblestone degeneration Laser scar Eye Exam - Wearing Rx Wearing Rx Sphere Cylinder [place] Add Right eye -0.25 +1.25 070 +2.75 Left eye Eye Exam Type: PAL Eye Exam - Manifest Refraction (Auto) Manifest Refraction (Auto) Sphere Cylinder [place] Right eye -1.00 +1.00 065 Left eye -1.00 +0.50 080 Care Teams - documented as of this encounter Care Teams Mill Tender Second Operator Relationship Specialty Start Date End Date Girish Simon MD PCP - General Family Medicine 12/11/11 Yasmeen López MD Primary Staff Physician Cardiology 01/31/19 Patient Demographics Patient Demographics Patient Address Communication Language Race / Ethnicity Marital Status [address] (Home) [place] [address] Former (2011 - 2016): [address] ([address]) [place] [address] [email or web address] South Korean (Preferred) White / Not or [facility] Work Phone: [phone]) 133-525411-13-2023 History and physical note* Ivan Baxter MD - 09/27/2023 3:45 PM EST HISTORY AND PHYSICAL EXAMINATION SERVICE DATE: 09/27/2023 SERVICE TIME: PRIMARY CARE PHYSICIAN: Girish Simon MD, MD REASON FOR VISIT: Misael Medina is a 73 year old female who is being seen for combined age related cataract right eye The patient has the following: ACTIVE PROBLEM LIST Hypermetropia Regular Astigmatism Presbyopia Multiple Defects of Retina Without Detachment Type 2 Diabetes Mellitus With Right Eye Affected By Mild Nonproliferative Retinopathy Without Macular Edema, Without Long-Term Current Use of Insulin (Hcc) Central Retinal Artery Occlusion, Left Eye Essential Hypertension Stroke ([facility]) 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 TOTAL HIP REPLACEMENT Right 11/19/2022 FAMILY HISTORY Problem Relation Age of Onset No Ocular Disease Father Heart Father Diabetes Father Hypertension Father No Ocular Disease Mother Hypertension Mother Diabetes Mother No Ocular Disease Sister Diabetes Sister No Ocular Disease Brother No Ocular Disease Maternal Grandmother No Ocular Disease Maternal Grandfather No Ocular Disease Paternal Grandmother No Ocular Disease Paternal Grandfather SOCIAL HISTORY: Social History Tobacco Use Smoking status: Never Smokeless tobacco: Never Vaping Use Vaping Use: Never used Substance Use Topics Alcohol use: No Drug use: No MEDICATIONS: Prior to Admission medications as of 09/27/23 1538 Medication Sig Last Dose Taking keTORolac (ACULAR) 0.5 % ophthalmic solution Use 1 Drop in the left eye four times daily. Taking Yes prednisoLONE acetate (PRED FORTE) 1 % ophthalmic suspension Use 1 Drop in the left eye four times daily. Taking Yes fluorometholone (FML LIQUID FILM) 0.1 % ophthalmic suspension Use 1 Drop in the right eye three times a day. Taking Yes glipiZIDE (GLUCOTROL XL) 2.5 mg 24 hr tablet Taking Yes metFORMIN ER (GLUCOPHAGE XR) 500 mg 24 hr tablet Taking Yes pioglitazone (ACTOS) 30 mg tablet Taking Yes amLODIPine (NORVASC) 10 mg tablet Take 10 mg by mouth once daily. Taking Yes atorvastatin (LIPITOR) 10 mg tablet Take 10 mg by mouth once daily. Taking Yes levothyroxine (SYNTHROID) 100 mcg tablet Take 100 mcg by mouth once daily. Taking Yes acetaminophen (TYLENOL) 325 mg tablet Take 650 mg by mouth every 6 hours as needed. Taking Yes quinapril (ACCUPRIL) 20 mg tablet Take 2 tablets by mouth once daily. No medication comments found. CURRENT ALLERGIES: ALLERGIES Allergen Reactions Seasonal Allergies Other: See Comments Sinus issues REVIEW OF SYSTEMS: PAIN ASSESSMENT: General: No weight loss, malaise or fevers. Neuro: See HPI Respiratory: No history of current cough or dyspnea, or pneumonia in the past 6 weeks. No history of respiratory/pulmonary symptoms or problems Cardiovascular: Positive for: Hypertension GI: No history of GI symptoms or problems. No history of esophageal varices, recent ascites, or ETOH greater than 2 drinks per day. : No history of UTI in past 6 weeks. No history of renal failure. Not currently on or requiring dialysis. No history of symptoms or problems. 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 : Denies Endocrine: Diabetes Mellitus on oral agent Hematology: No history of bleeding or clotting disorder. Pt is not taking anti- coagulation or platelet medications. No history of hematological symptoms or problems. Oncology: No history of CA metastasis, chemo within 30 days, or radiotherapy within 90 days. Has not lost 10% of body wt in 6 months. No history of oncological symptoms or problems. Psych: No history of psychiatric symptoms or problems. Musculoskeletal: Negative for joint pain or swelling, back pain or muscle pain. Skin: Negative for lesions, rash and itching. PHYSICAL EXAM: VITALS: BP 187/72 Pulse 72 General: Alert and oriented Skin: Normal color, no rash, no lesions. HEENT: EOM, pupils equal, round and reactive. Cardiovascular: Normal S1 & S2, no rubs, murmurs or gallops. No JVD. Pulse regular. Lungs: Normal breath sounds, no wheezes or crackles. Abdomen: Soft, non-tender, no rigidity. Extremities: No deformity, no edema or tenderness, no joint swelling or clubbing. Neurological: Normal cognition and motor skills. Pulses: Carotid and radial pulses normal +2. Diagnostic tests reviewed for today's visit: No new labs or tests ASSESSMENT Medication and Non-Pharmacologic VTE Prophylaxis/Anticoagulants VTE Prophylaxis: VTE prophylaxis appropriate Impression: There is no known pertinent medical condition which may affect jett- operative course Clinical Risk Factors for Possible Cardiac Complications: None Patient is scheduled for a low-risk procedure. FUNCTIONAL STATUS: Walk indoors, such as around the house (1.75 METs) Functional Class (NYHA): N/A [facility]: Not obtained PLAN CONSULTS: Patient does not require consults for optimization at this time. The Following Tests/Procedures Have Been Initiated: None Instructions Given to Patient: Patient given verbal and written preop instructions and voices comprehension and compliance. SIGNATURE: Ivan Baxter MD PATIENT NAME: Misael Medina DATE: September 27, 2023 TIME: 3:45 PM PAGER/CONTACT #: documented in this encounter[facility] History of Present illness Narrative* Ivan Baxter MD - 09/27/2023 3:38 PM EST ASSESSMENT/PLAN: 1. Combined form of age-related cataract, right eye - ICD9: 366.19, ICD10: H25.811 (primary diagnosis) PHYSICAL EXAM: Vital Signs: Blood pressure 187/72, pulse 72. Respiratory: Normal breath sounds, no wheezing. CARD: Normal heart sounds 1 & 2, normal sinus rhythm. Cataract Presurgical Documentation Cataract: Right eye (OD) Current Visual Acuity Right Eye Distance CC 20/40 Left Eye Distance SC 20/200 Visual Function: Misael Medina states that the decline in vision from the cataract impedes herabilities as listed in the HPI, as well as other activities of daily living. Misael Medina has confirmed that she is no longer able to function adequately on a day-to-day basis because of her current visual condition. Further, it is my medical opinion that the cataract is the primary cause, or at least a significantly contributory cause of her visual dysfunction. With uncomplicated cataract surgery and lens implantation, it is my expectation that her visual function and quality of life will improve, significantly. The risks, benefits, alternatives, personnel and complications of cataract surgery with lens implantation were discussed with Misael Medina in detail. she appeared to understand and asked that Iproceed with plans for surgery. Upon eye examination, patient was found to have a visually significant cataract right eye . Discussed cataract surgery with patient and different intraocular lens implant options with patient: basic monofocal intraocular lens implant, Toric intraocular lens implant, and presbyopia correction intraocular lens implant. In my medical opinion, based on medical history and ocular examination, cataractsurgery with intraocular lens implant will correct patient's vision and improve quality of patient's daily living activities. Patient wishes to have traditional cataract surgery with basic intraocular lens right eye 09/30/2023. Patient wishes to have cataract surgery with the option stated above. Patient understands that an intraocular lens implant does not necessarily replace the need for glasses. Patient understands that it is impossible for the surgeon to inform him/her of every possible complication that may occur. The surgeon has answered all of the patient's questions. Patient understands that if he/she has a mature or dense cataract, pseudoexfoliation cataract, or history of use of Fl omax, he/she may require the use of Maluyugin Ring and/or Vision Blue during surgery. Patient understands the risks, benefits, and alternatives to surgery. Continue as directed: Current Ophthalmic Meds fluorometholone (FML LIQUID FILM) 0.1 % ophthalmic suspension Use 1 Drop in the right eye three times a day. Systane Complete Artificial Tears - Use 1 Drop into both eyes three times a day. 2. 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 without macular edema, without long-term current use of insulin (HCC) - ICD9: 250.50, 362.04, ICD10: E11.3291 Please keep your blood sugar under good control to minimize risk of ocular complications from diabetes. Continue care with Dr. Girish Simon 3. Status post cataract extraction and insertion of intraocular lens of left eye - ICD9: V45.61, V43.1, ICD10: Z98.42, Z96.1 S/p cataract surgery 08/26/2023 Current Ophthalmic Meds keTORolac (ACULAR) 0.5 % ophthalmic solution Use 1 Drop in the left eye three times daily until 09/30/2023 prednisoLONE acetate (PRED FORTE) 1 % ophthalmic suspension Use 1 Drop in the left eye three times daily until 09/30/2023 4. History of Central retinal artery occlusion, left eye - ICD9: 362.31, ICD10: H34.[address] Chirinos's note -cilioretinal artery sparing -stable/monitor -rec good blood pressure control 5. Operculated retinal tear of left eye - ICD9: 361.32, ICD10: H33.312 Stable/observe -s/p retinopexy (10/01/22) 6. Essential hypertension - ICD9: 401.9, ICD10: I10 7. Hypercholesterolemia - ICD9: 272.0, ICD10: E78.00 Continue care with primary care physician Ivan Baxter MD I have confirmed and edited as necessary the relevant ophthalmic history, review of systems, surgical history, and ophthalmological examination findings as obtained by the ophthalmic technical staff.I have seen and examined Misael Medina. I have discussed the examination findings, diagnosis, and treatment options with Misael Medina and/or her family. I have also reviewed and agree withthe assessment and plan as stated above and agree with all its relevant components. I gave the patient the opportunity to ask questions about the findings, diagnosis, and treatment options. documented in this [facility] Note* Preprocedure Instructions - Sakina Abreu RN - 09/27/2023 12:50 PM EST No outpatient medications have been marked as taking for the 09/30/23 encounter (Hospital Encounter). 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 Poor acuity expected due to CRAO. Posterior chamber intraocular lens is wellpositioned and clear. Continue schedule of postoperative medications as directed. Instruct patient to immediately report any change in condition outside of expected and discussed symptoms. Scheduled for cataract surgery right eye in 4 weeks. I have confirmed and edited as necessary the relevant ophthalmic history, ROS, and the neuro exam findings as obtained by others. I have seen and examined Misael Medina. I have discussed the case and the management of this patient's care with the Resident/Fellow, if applicable. I also have reviewed and agree with the assessment and plan as stated above and agree withall of its relevant components. Sarah Relily II, OD documented in this encounterPrem[facility]10-[facility] History of Present illness Narrative* Sarah Reilly II, OD - 09/02/2023 12:51 PM EDT Assessment and Plan Z98.42, Z96.1 Status post cataract extraction and insertion of intraocular lens of left eye (primary encounter diagnosis) Comment: Healing well. Poor acuity expected due to CRAO. Posterior chamber intraocular lens is wellpositioned and clear. Continue schedule of postoperative medications as directed. Instruct patient to immediately report any change in condition outside of expected and discussed symptoms. Scheduled for cataract surgery right eye in 4 weeks. I have confirmed and edited as necessary the relevant ophthalmic history, ROS, and the neuro exam findings as obtained by others. I have seen and examined Misael Medina. I have discussed the case and the management of this patient's care with the Resident/Fellow, if applicable. I also have reviewed and agree with the assessment and plan as stated above and agree withall of its relevant components. Sarah Reilly II, OD documented in this encounterPrem[facility]10-13-2023 Instructions* Patient Instructions* Ivan Baxter MD - 08/27/2023 9:05 AM EDT Plan Cataract Surgery with Monofocal Intraocular lens Implant Right Eye on 09/30/2023 at [facility]. Current Ophthalmic Meds fluorometholone (FML LIQUID FILM) 0.1 % ophthalmic suspension Use 1 Drop in the right eye three times a day. Continue: Systane Complete solution instill 1 drop 3 times daily Both Eyes. Discontinue: Alphagan solution Left Eye. Current Ophthalmic Meds keTORolac (ACULAR) 0.5 % ophthalmic solution Use 1 Drop in the left eye four times daily. prednisoLONE acetate (PRED FORTE) 1 % ophthalmic suspension Use 1 Drop in the left eye four times daily. If you have any questions please contact our office at [phone]. After office hours or on the weekend, please call Dr. Baxter on his cell phone at [phone]. documented in this encounterPrem[facility]10-13-[facility] History of Present illness Narrative* Ivan Baxter MD - 08/27/2023 8:57 AM EDT ASSESSMENT/PLAN: 1. Combined forms of age-related cataract of right eye - ICD9: 366.19, ICD10: H25.811 (primary diagnosis) Plan Cataract Surgery with Monofocal Intraocular lens Implant Right Eye on 09/30/2023 at [facility]. Current Ophthalmic Meds fluorometholone (FML LIQUID FILM) 0.1 % ophthalmic suspension Use 1 Drop in the right eye three times a day. Continue: Systane Complete solution instill 1 drop 3 times daily Both Eyes. 2. Status post cataract extraction and insertion of intraocular lens of left eye - ICD9: V45.61, V43.1, ICD10: Z98.42, Z96.1 Discontinue: Alphagan solution Left Eye. Current Ophthalmic Meds keTORolac (ACULAR) 0.5 % ophthalmic solution Use 1 Drop in the left eye four times daily. prednisoLONE acetate (PRED FORTE) 1 % ophthalmic suspension Use 1 Drop in the left eye four times daily. See Dr. Reilly for post-operative care. Ivan Baxter MD I have confirmed and edited as necessary the relevant ophthalmic history, review of systems, surgical history, and ophthalmological examination findings as obtained by the ophthalmic technical staff.I have seen and examined Misael Medina. I have discussed the examination findings, diagnosis, and treatment options with Misael Medina and/or her family. I have also reviewed and agree withthe assessment and plan as stated above and agree with all its relevant components. I gave the patient the opportunity to ask questions about the findings, diagnosis, and treatment options. documented in this encounterPrem[facility]10-12-[facility] Note* Op Note - Ivan Baxter MD - 08/26/2023 12:35 PM EDT CATARACT EXTRACTION W/IOL IMPLANT L EYE (L) Operative Note Date: 08/26/2023 OR Location: [facility] OR Name: Ed Medina, : 1950, Age: 73 y.o., , Sex: female Diagnosis Pre-op Diagnosis * Combined 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 [H25.812] Post-op Diagnosis * Combined 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 [H25.812] Procedures * CATARACT EXTRACTION W/IOL IMPLANT L EYE Surgeons * Ivan Baxter - Primary Resident/Fellow/Other Criminal Justice Instructor: No surgical staff documented. Procedure Summary Anesthesia: Monitor Anesthesia Care ASA: III Anesthesia Staff: Anesthesiologist: Kenan Ralph MD Estimated Blood Loss: None Intra-op Medications: Medication Name Total Dose ketorolac (Acular) 0.5 % ophthalmic solution 1 drop 2 drop lubricating eye drops ophthalmic solution 1 drop 2 drop ondansetron (Zofran) injection 4 mg 4 mg phenylephrine-tropicamide 10 %-1 % ophthalmic solution 1 drop 2 drop lactated Ringer's infusion 28.75 mL Anesthesia Record Intraprocedure I/O Totals None Specimen: No specimens collected Staff: Harness Brusher: Patrizia Hobbs RN Scrub Person: Armen Nolasco RN Implants: Implants Type Name Action Serial No. Lens LENS, INTRAOCULAR, [id number] 21.0 - [id number] - [id number] Implanted [id number] Findings: Combined Form Age Related Cataract Left Eye Indications: Ed Medina is an 73 y.o. female who is having surgery for Combined 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 [H25.812]. Patient complains of blurred vision and decreased vision left eye. Difficulty seeing to read with left eye and difficulty seeing for distance, especially when driving. The patient was seen in the preoperative area. The risks, benefits, complications, treatment options, non-operative alternatives, expected recovery and outcomes were discussed with the patient. The possibilities of reaction to medication, pulmonary aspiration, injury to surrounding structures, bleeding, recurrent infection, the need for additional procedures, failure to diagnose a condition, and creating a complication requiring transfusion or operation were discussed with the patient. The patient concurred with the proposed plan, giving informed consent. The site of surgery was properly noted/marked if necessary per policy. The patient has been actively warmed in preoperative area. Preopera tive antibiotics are not indicated. Venous thrombosis prophylaxis are not indicated. Procedure Details: The patient was correctly identified in the preop area and the operative eye was marked with a marking pen. The operative eye was dilated in the preoperative area. The patient was then taken to the operating room where timeout was performed before starting the procedure. Combined anesthesia with intravenous sedation and topical tetracaine eyedrops were given the left eye. The operative eye was prepped and draped in the standard sterile ophthalmic fashion in preparation for ophthalmic surgery. ALieberman wire speculum was then inserted between the eyelids of the left eye and the operating microscope was placed over the left eye. A paracentesis incision was made approximately 30 away from the planned surgical incision site with the help of MVR blade. 1% lidocaine MPF with Phenylephrine 1.5% PF was injected into the anterior chamber through the paracentesis incision. A near limbal clear corneal incision was fashioned in the temporal quadrant just outside the vascular arcade and Viscoat was injected into anterior chamber to firm the eye. A bent needle cystotome was used and Utrata forceps were utilized to create a continuous curvilinear capsulorrhexis. BSS was injected beneath the anterior capsule to hydrodissect the nucleus from adjacent cortex and capsule. The residual cortex were then aspirated with irrigation aspiration handpiece. The posterior capsule was then polished with t he help of soft irrigation-aspiration tip. Provisc viscoelastic was then injected into the eye to reform the anterior chamber and to open the capsular bag. The intraocular lens implant was taken fromits sterile wrapping, inspected under the surgical microscope and found to be in good condition. The intraocular lens implant +20.5D was injected into the capsule bag. The Provisc was then aspirated from the anterior chamber and from behind the intraocular lens implant. The anterior chamber was inflated with the help of BSS to moderate tension. The edges of the surgical incision were then hydrated with the help of BSS. Vigamox was then injected into the anterior chamber and into the capsule bagthrough the paracentesis incision. The surgical wound was then inspected and found to be watertight. The wire speculum and drapes were then removed. Pred Forte eyedrops, Acular eyedrops and Betadine 5% sterile ophthalmic solution were instilled in the conjunctival sac. The patient tolerated the procedure well and was taken to recovery room in stable condition. Complications: None; patient tolerated the procedure well. Condition: stable Attending Attestation: I performed the procedure. Ivan Baxter [facility] Work Phone: 1(757) 252-222610-12-2023 Miscellaneous Notes* Op Note - Ivan Baxter MD - 08/26/2023 12:35 PM EDT CATARACT EXTRACTION W/IOL IMPLANT L EYE (L) Operative Note Date: 08/26/2023 OR Location: [facility] OR Name: Ed Medina, : 1950, Age: 73 y.o., , Sex: female Diagnosis Pre-op Diagnosis * Combined 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 [H25.812] Post-op Diagnosis * Combined 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 [H25.812] Procedures * CATARACT EXTRACTION W/IOL IMPLANT L EYE Surgeons * Ivan Baxter - Primary Resident/Fellow/Other Criminal Justice Instructor: No surgical staff documented. Procedure Summary Anesthesia: Monitor Anesthesia Care ASA: III Anesthesia Staff: Anesthesiologist: Kenan Raplh MD Estimated Blood Loss: None Intra-op Medications: Medication Name Total Dose ketorolac (Acular) 0.5 % ophthalmic solution 1 drop 2 drop lubricating eye drops ophthalmic solution 1 drop 2 drop ondansetron (Zofran) injection 4 mg 4 mg phenylephrine-tropicamide 10 %-1 % ophthalmic solution 1 drop 2 drop lactated Ringer's infusion 28.75 mL Anesthesia Record Intraprocedure I/O Totals None Specimen: No specimens collected Staff: Harness Brusher: Patrizia Hobbs RN Scrub Person: Armen Nolasco RN Implants: Implants Type Name Action Serial No. Lens LENS, INTRAOCULAR, SN60WF 21.0 - [id number] - [id number] Implanted [id number] Findings: Combined Form Age Related Cataract Left Eye Indications: Ed Medina is an 73 y.o. female who is having surgery for Combined 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 [H25.812]. Patient complains of blurred vision and decreased vision left eye. Difficulty seeing to read with left eye and difficulty seeing for distance, especially when driving. The patient was seen in the preoperative area. The risks, benefits, complications, treatment options, non-operative alternatives, expected recovery and outcomes were discussed with the patient. The possibilities of reaction to medication, pulmonary aspiration, injury to surrounding structures, bleeding, recurrent infection, the need for additional procedures, failure to diagnose a condition, and creating a complication requiring transfusion or operation were discussed with the patient. The patient concurred with the proposed plan, giving informed consent. The site of surgery was properly noted/marked if necessary per policy. The patient has been actively warmed in preoperative area. Preopera tive antibiotics are not indicated. Venous thrombosis prophylaxis are not indicated. Procedure Details: The patient was correctly identified in the preop area and the operative eye was marked with a marking pen. The operative eye was dilated in the preoperative area. The patient was then taken to the operating room where timeout was performed before starting the procedure. Combined anesthesia with intravenous sedation and topical tetracaine eyedrops were given the left eye. The operative eye was prepped and draped in the standard sterile ophthalmic fashion in preparation for ophthalmic surgery. ALieberman wire speculum was then inserted between the eyelids of the left eye and the operating microscope was placed over the left eye. A paracentesis incision was made approximately 30 away from the planned surgical incision site with the help of MVR blade. 1% lidocaine MPF with Phenylephrine 1.5% PF was injected into the anterior chamber through the paracentesis incision. A near limbal clear corneal incision was fashioned in the temporal quadrant just outside the vascular arcade and Viscoat was injected into anterior chamber to firm the eye. A bent needle cystotome was used and Utrata forceps were utilized to create a continuous curvilinear capsulorrhexis. BSS was injected beneath the anterior capsule to hydrodissect the nucleus from adjacent cortex and capsule. The residual cortex were then aspirated with irrigation aspiration handpiece. The posterior capsule was then polished with t he help of soft irrigation-aspiration tip. Provisc viscoelastic was then injected into the eye to reform the anterior chamber and to open the capsular bag. The intraocular lens implant was taken fromits sterile wrapping, inspected under the surgical microscope and found to be in good condition. The intraocular lens implant +20.5D was injected into the capsule bag. The Provisc was then aspirated from the anterior chamber and from behind the intraocular lens implant. The anterior chamber was inflated with the help of BSS to moderate tension. The edges of the surgical incision were then hydrated with the help of BSS. Vigamox was then injected into the anterior chamber and into the capsule bagthrough the paracentesis incision. The surgical wound was then inspected and found to be watertight. The wire speculum and drapes were then removed. Pred Forte eyedrops, Acular eyedrops and Betadine 5% sterile ophthalmic solution were instilled in the conjunctival sac. The patient tolerated the procedure well and was taken to recovery room in stable condition. Complications: None; patient tolerated the procedure well. Condition: stable Attending Attestation: I performed the procedure. Ivan Baxter * Significant Event - Janene aWlton RN - 08/26/2023 11:20 AM EDT Pt feeling more relaxed now documented [facility] Work Phone: [phone]) 953-384510-12-2023 Hospital Discharge instructions* Discharge Instructions* Ivan Baxter MD - 08/26/2023 11:29 AM EDT [address].. PDI to pt. And JAMAAL. Follow printed discharge instructions documented in this encounterCher[facility] Hospital Work Phone: 1(722) 621-783010-12-2023 History and physical note* Ivan Baxter MD - 08/26/2023 11:21 AM EDT Reason for Visit Reason for Visit - Reason Comments Blurred Vision Both Eyes Difficulty Reading Both Eyes Glare Halos Both Eyes Encounter Details Encounter Details Date Type Department Care Team Description 08/18/2023 10:45 AM EDT Office Visit [facility] Ophthalmology [address] [place] [address] Ivan Baxter MD [address] [place] [address] Combined 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 (Primary Dx); Combined forms of age-related cataract of right eye; 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 without macular edema, without long-term current use of insulin (HCC); Central retinal artery occlusion, left eye; Operculated retinal tear of left eye; Ocular hypertension of left eye; Essential hypertension Social History - documented as of this encounter Social History Tobacco Use Types Packs/Day Years Used Date Smoking Tobacco: Never Smokeless Tobacco: Never Social History Alcohol Use Standard Drinks/Week Comments No 0 (1 standard drink = 0.6 oz pure alcohol) Social History Area Deprivation Index Answer Date Recorded National Score (1-100), lower number is lower risk 79 State Score (1-10), lower number is lower risk 7 Data from: https://www.neighborhoodatlas.[facility]/. Last address used for calculation [address] Social History Sex and Gender Information Value Date Recorded Sex Assigned at Not on file Gender Identity Not on file Sexual Orientation Not on file Last Filed Vital Signs - documented in this encounter Last Filed Vital Signs Vital Sign Reading Time Taken Comments Blood Pressure 187/72 08/18/2023 11:11 AM EDT Pulse 72 08/18/2023 11:11 AM EDT Temperature - - Respiratory Rate - - Oxygen Saturation - - Inhaled Oxygen Concentration - - Weight - - Height - - Body Mass Index - - Patient Instructions - documented in this encounter Patient Instructions Ivan Baxter MD - 08/18/2023 11:04 AM EDT Continue: Current Ophthalmic Meds brimonidine (ALPHAGAN) 0.2 % ophthalmic solution Use 1 Drop in both eyes twice daily. fluorometholone (FML LIQUID FILM) 0.1 % ophthalmic suspension Use 1 Drop in both eyes three times aday. Systane Complete Artificial Tears - Use 1 Drop into both eyes three times a day. If you have any questions please contact our office at [phone]. After office hours or on the weekend, please call Dr. Baxter on his cell phone at [phone]. Ordered Prescriptions - documented in this encounterReconcile with Patient's Chart Ordered Prescriptions Prescription Sig Dispensed Refills Start Date End Date fluorometholone (FML LIQUID FILM) 0.1 % ophthalmic suspension Use 1 Drop in both eyes three times aday. 5 mL 1 08/18/2023 08/25/2023 Progress Notes - documented in this encounter Ivan Baxter MD - 08/18/2023 11:12 AM EDT ASSESSMENT/PLAN: 1. Combined 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 - ICD9: 366.19, ICD10: H25.812 (primary diagnosis) PHYSICAL EXAM: Vital Signs: Blood pressure 187/72, pulse 72. Respiratory: Normal breath sounds, no wheezing. CARD: Normal heart sounds 1 & 2, normal sinus rhythm. Cataract Presurgical Documentation Cataract: Both eyes (OU) Current Visual Acuity Right Eye Distance CC 20/40 Left Eye Distance CC 20/200 Glare Testing: Right Eye Medium 20/80 Right Eye High 20/100 Visual Function: Misael Medina states that the decline in vision from the cataract impedes herabilities as listed in the HPI, as well as other activities of daily living. Misael Medina has confirmed that she is no longer able to function adequately on a day-to-day basis because of her current visual condition. Further, it is my medical opinion that the cataract is the primary cause, or at least a significantly contributory cause of her visual dysfunction. With uncomplicated cataract surgery and lens implantation, it is my expectation that her visual function and quality of life will improve, significantly. The risks, benefits, alternatives, personnel and complications of cataract surgery with lens implantation were discussed with Misael Medina in detail. she appeared to understand and asked that Iproceed with plans for surgery. Continue: Current Ophthalmic Meds fluorometholone (FML LIQUID FILM) 0.1 % ophthalmic suspension Use 1 Drop in both eyes three times daily. Systane Complete Artificial Tears - Use 1 Drop into both eyes three times a day. Upon eye examination, patient was found to have a visually significant cataract both eyes. Discussed cataract surgery with patient and different intraocular lens implant options with patient: basic monofocal intraocular lens implant, Toric intraocular lens implant, and presbyopia correction intraocular lens implant. In my medical opinion, based on medical history and ocular examination, cataract surgery with intraocular lens implant will correct patient's vision and improve quality of patient'sdaily living activities. Patient wishes to have traditional cataract surgery with basic intraocularlens left eye on August 26, 2023 at [facility]. Patient wishes to have cataract surgery with the option stated above. Patient understands that an intraocular lens implant does not necessarily replace the need for glasses. Patient understands that it is impossible for the surgeon to inform him/her of every possible complication that may occur. The surgeon has answered all of the patient's questions. Patient understands that if he/she has a mature or dense cataract, pseudoexfoliation cataract, or history of use of Flomax, he/she may require the use of Maluyugin Ring and/or Vision Blue during surgery. Patient understands the risks, benefits, and alternatives to surgery. -return for signing basic consents and a-scan. 2. Combined forms of age-related cataract of right eye - ICD9: 366.19, ICD10: H25.811 - will schedule once the left eye is stable. 3. 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 without macular edema, without long-term current use of insulin (HCC) - ICD9: 250.50, 362.04, ICD10: E11.3291 -Continue to monitor with Dr. Reilly for yearly dilated visits. 4. Central retinal artery occlusion, left eye - ICD9: 362.31, ICD10: H34.12 -Monitor for any changes in vision. 5. Operculated retinal tear of left eye - ICD9: 361.32, ICD10: H33.312 -Monitor for any changes in vision. 6. Ocular hypertension of left eye - ICD9: 365.04, ICD10: H40.052 Continue: Current Ophthalmic Meds brimonidine (ALPHAGAN) 0.2 % ophthalmic solution Use 1 Drop in both eyes twice daily. The nature of glaucoma was discussed, with emphasis on the non-reversible damage to the optic nerve. Treatment options and the importance of regular examinations and testing were covered in detail, as well as the consequences of non-compliance. The patient was given the opportunity to ask questions. 7. Essential hypertension - ICD9: 401.9, ICD10: I10 Continue to monitor with primary care physician. I have confirmed and edited as necessary the relevant ophthalmic history, review of systems, surgical history, and ophthalmological examination findings as obtained by the ophthalmic technical staff.I have seen and examined Misael Medina. I have discussed the examination findings, diagnosis, and treatment options with Misael Medina and/or her family. I have also reviewed and agree withthe assessment and plan as stated above and agree with all its relevant components. I gave the patient the opportunity to ask questions about the findings, diagnosis, and treatment options. Ivan Baxter MD Plan of Treatment - documented as of this encounter Plan of Treatment - Upcoming Encounters Upcoming Encounters Date Type Department Care Team Description 08/27/2023 8:45 AM EDT Office Visit [facility] [address] [place] [address] [place] [address] 09/08/2023 1:30 PM EDT Office Visit [facility] Optometry [address] [place] [address] Sarah Reilly II, OD [address] [place] [address] Plan of Treatment - Scheduled Procedures Scheduled Procedures Name Priority Associated Diagnoses Date/Time SURGERY AT [facility] Combined form of age-related cataract, left eye 08/26/2023 11:15 AM EDT Visit Diagnoses - documented in this encounter Visit Diagnoses Diagnosis Combined 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 - Primary Other and combined forms of senile cataract Combined forms of age-related cataract of right eye Other and combined forms of senile cataract 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 without macular edema, without long-term current use of insulin (HCC) Central retinal artery occlusion, left eye Central artery occlusion of retina Operculated retinal tear of left eye 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 08/04/2023 08/18/2023 Eye Exam Eye Exam - Visual Acuity (Snellen - Linear) Visual Acuity (Snellen - Linear) Right eye Left eye Dist cc 20/40 20/200 Near cc J6 J12 Eye Exam Correction: Glasses Eye Exam - Tonometry (Applanation, 11:07 AM) Tonometry (Applanation, 11:07 AM) Right eye Left eye Pressure 15 15 Eye Exam - Pupils Pupils Pupils Dark Light Shape APD Right eye PERRL 4 2 Round None Left eye PERRL 4 2 Round None Eye Exam - Visual Sharma (Counting fingers) Visual Sharma (Counting fingers) Right eye Left eye Full Full Eye Exam - Extraocular Movement Extraocular Movement Right eye Left eye Full Full Eye Exam - Neuro/Psych Neuro/Psych Oriented x3: Yes Mood/Affect: Normal Eye Exam - Glare Testing Glare Testing Medium High Right eye 20/80 20/100 Left eye LENSTAR Right eye: AL 23.32 ACD 3.28 WTW 11.94 Left eye: AL 23.36 ACD 3.13 WTW 11.95 Eye Exam - External Exam External Exam Right eye Left eye External Normal including orbits and preauricular lymph nodes Normal including orbits and preauricular lymph nodes Eye Exam - Slit Lamp Exam Slit Lamp Exam Right eye Left eye Lids/Lashes Upper lid dermatochalasis Upper lid dermatochalasis Conjunctiva/Sclera White and quiet White and quiet Cornea Normal epithelium, stroma, endothelium, and tear film Band keratopathy at 9 o'clock Anterior Chamber Deep and quiet Deep and quiet Iris Pupil dilates well Pupil dilates well Lens 3-4+ Nuclear sclerotic cataract, 3-4+ Posterior subcapsular cataract 3-4+ Nuclear sclerotic cataract, 3-4+ Posterior subcapsular cataract Anterior Vitreous Vitreous floaters Vitreous floaters Eye Exam - Fundus Exam Fundus Exam Right eye Left eye Disc Normal Pallor C/D Ratio 0.1 0.2 Macula Retinal pigment epithelial mottling Blunt foveal reflex Vessels Normal Vascular attenuation Periphery Cobblestone degeneration Laser scar Eye Exam - Wearing Rx Wearing Rx Sphere Cylinder [place] Add Right eye -0.25 +1.25 070 +2.75 Left eye -0.25 +1.25 090 +2.75 Eye Exam Type: PAL Care Teams - documented as of this encounter Care Teams Mill Tender Second Operator Relationship Specialty Start Date End Date Girish Simon MD PCP - General Family Medicine 12/11/11 Yasmeen López MD Primary Staff Physician [facility] Work Phone: 1(791) 717-747410-12-2023 History and physical note* Ivan Baxter MD - 08/26/2023 11:21 AM EDT Reason for Visit Reason for Visit - Reason Comments Blurred Vision Both Eyes Difficulty Reading Both Eyes Glare Halos Both Eyes Encounter Details Encounter Details Date Type Department Care Team Description 08/18/2023 10:45 AM EDT Office [place] [address] [place] [address] Combined 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 (Primary Dx); Combined forms of age-related cataract of right eye; 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 without macular edema, without long-term current use of insulin (HCC); Central retinal artery occlusion, left eye; Operculated retinal tear of left eye; Ocular hypertension of left eye; Essential hypertension Social History - documented as of this encounter Social History Tobacco Use Types Packs/Day Years Used Date Smoking Tobacco: Never Smokeless Tobacco: Never Social History Alcohol Use Standard Drinks/Week Comments No 0 (1 standard drink = 0.6 oz pure alcohol) Social History Area Deprivation Index Answer Date Recorded National Score (1-100), lower number is lower risk 79 State Score (1-10), lower number is lower risk 7 Data from: https://www.neighborhoodatlas.medicine[facility]/. Last address used for calculation [address] Social History Sex and Gender Information Value Date Recorded Sex Assigned at Not on file Gender Identity Not on file Sexual Orientation Not on file Last Filed Vital Signs - documented in this encounter Last Filed Vital Signs Vital Sign Reading Time Taken Comments Blood Pressure 187/72 08/18/2023 11:11 AM EDT Pulse 72 08/18/2023 11:11 AM EDT Temperature - - Respiratory Rate - - Oxygen Saturation - - Inhaled Oxygen Concentration - - Weight - - Height - - Body Mass Index - - Patient Instructions - documented in this encounter Patient Instructions Ivan Baxter MD - 08/18/2023 11:04 AM EDT Continue: Current Ophthalmic Meds brimonidine (ALPHAGAN) 0.2 % ophthalmic solution Use 1 Drop in both eyes twice daily. fluorometholone (FML LIQUID FILM) 0.1 % ophthalmic suspension Use 1 Drop in both eyes three times aday. Systane Complete Artificial Tears - Use 1 Drop into both eyes three times a day. If you have any questions please contact our office at [phone]. After office hours or on the weekend, please call Dr. Baxter on his cell phone at [phone]. Ordered Prescriptions - documented in this encounterReconcile with Patient's Chart Ordered Prescriptions Prescription Sig Dispensed Refills Start Date End Date fluorometholone (FML LIQUID FILM) 0.1 % ophthalmic suspension Use 1 Drop in both eyes three times aday. 5 mL 1 08/18/2023 08/25/2023 Progress Notes - documented in this encounter Ivan Baxter MD - 08/18/2023 11:12 AM EDT ASSESSMENT/PLAN: 1. Combined 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 - ICD9: 366.19, ICD10: H25.812 (primary diagnosis) PHYSICAL EXAM: Vital Signs: Blood pressure 187/72, pulse 72. Respiratory: Normal breath sounds, no wheezing. CARD: Normal heart sounds 1 & 2, normal sinus rhythm. Cataract Presurgical Documentation Cataract: Both eyes (OU) Current Visual Acuity Right Eye Distance CC 20/40 Left Eye Distance CC 20/200 Glare Testing: Right Eye Medium 20/80 Right Eye High 20/100 Visual Function: Misael Medina states that the decline in vision from the cataract impedes herabilities as listed in the HPI, as well as other activities of daily living. Misael Medina has confirmed that she is no longer able to function adequately on a day-to-day basis because of her current visual condition. Further, it is my medical opinion that the cataract is the primary cause, or at least a significantly contributory cause of her visual dysfunction. With uncomplicated cataract surgery and lens implantation, it is my expectation that her visual function and quality of life will improve, significantly. The risks, benefits, alternatives, personnel and complications of cataract surgery with lens implantation were discussed with Misael Medina in detail. she appeared to understand and asked that Iproceed with plans for surgery. Continue: Current Ophthalmic Meds fluorometholone (FML LIQUID FILM) 0.1 % ophthalmic suspension Use 1 Drop in both eyes three times daily. Systane Complete Artificial Tears - Use 1 Drop into both eyes three times a day. Upon eye examination, patient was found to have a visually significant cataract both eyes. Discussed cataract surgery with patient and different intraocular lens implant options with patient: basic monofocal intraocular lens implant, Toric intraocular lens implant, and presbyopia correction intraocular lens implant. In my medical opinion, based on medical history and ocular examination, cataract surgery with intraocular lens implant will correct patient's vision and improve quality of patient'sdaily living activities. Patient wishes to have traditional cataract surgery with basic intraocularlens left eye on August 26, 2023 at [facility]. Patient wishes to have cataract surgery with the option stated above. Patient understands that an intraocular lens implant does not necessarily replace the need for glasses. Patient understands that it is impossible for the surgeon to inform him/her of every possible complication that may occur. The surgeon has answered all of the patient's questions. Patient understands that if he/she has a mature or dense cataract, pseudoexfoliation cataract, or history of use of Flomax, he/she may require the use of Maluyugin Ring and/or Vision Blue during surgery. Patient understands the risks, benefits, and alternatives to surgery. -return for signing basic consents and a-scan. 2. Combined forms of age-related cataract of right eye - ICD9: 366.19, ICD10: H25.811 - will schedule once the left eye is stable. 3. 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 without macular edema, without long-term current use of insulin (HCC) - ICD9: 250.50, 362.04, ICD10: E11.3291 -Continue to monitor with Dr. Reilly for yearly dilated visits. 4. Central retinal artery occlusion, left eye - ICD9: 362.31, ICD10: H34.12 -Monitor for any changes in vision. 5. Operculated retinal tear of left eye - ICD9: 361.32, ICD10: H33.312 -Monitor for any changes in vision. 6. Ocular hypertension of left eye - ICD9: 365.04, ICD10: H40.052 Continue: Current Ophthalmic Meds brimonidine (ALPHAGAN) 0.2 % ophthalmic solution Use 1 Drop in both eyes twice daily. The nature of glaucoma was discussed, with emphasis on the non-reversible damage to the optic nerve. Treatment options and the importance of regular examinations and testing were covered in detail, as well as the consequences of non-compliance. The patient was given the opportunity to ask questions. 7. Essential hypertension - ICD9: 401.9, ICD10: I10 Continue to monitor with primary care physician. I have confirmed and edited as necessary the relevant ophthalmic history, review of systems, surgical history, and ophthalmological examination findings as obtained by the ophthalmic technical staff.I have seen and examined Misael Medina. I have discussed the examination findings, diagnosis, and treatment options with Misael Medina and/or her family. I have also reviewed and agree withthe assessment and plan as stated above and agree with all its relevant components. I gave the patient the opportunity to ask questions about the findings, diagnosis, and treatment options. Ivan Baxter MD Plan of Treatment - documented as of this encounter Plan of Treatment - Upcoming Encounters Upcoming Encounters Date Type Department Care Team Description 08/27/2023 8:45 AM EDT Office Visit [facility] [address] [place] [address] Ivan Baxter MD [address] [place] [address] 09/08/2023 1:30 PM EDT Office Visit [facility] Optometry [address] [place] [address] Sarah Reilly II, OD [address] [place] [address] Plan of Treatment - Scheduled Procedures Scheduled Procedures Name Priority Associated Diagnoses Date/Time SURGERY AT [facility] Combined form of age-related cataract, left eye 08/26/2023 11:15 AM EDT Visit Diagnoses - documented in this encounter Visit Diagnoses Diagnosis Combined 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 - Primary Other and combined forms of senile cataract Combined forms of age-related cataract of right eye Other and combined forms of senile cataract 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 without macular edema, without long-term current use of insulin ([facility]) Central retinal artery occlusion, left eye Central artery occlusion of retina Operculated retinal tear of left eye 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 08/04/2023 08/18/2023 Eye Exam Eye Exam - Visual Acuity (Snellen - Linear) Visual Acuity (Snellen - Linear) Right eye Left eye Dist cc 20/40 20/200 Near cc J6 J12 Eye Exam Correction: Glasses Eye Exam - Tonometry (Applanation, 11:07 AM) Tonometry (Applanation, 11:07 AM) Right eye Left eye Pressure 15 15 Eye Exam - Pupils Pupils Pupils Dark Light Shape APD Right eye PERRL 4 2 Round None Left eye PERRL 4 2 Round None Eye Exam - Visual Sharma (Counting fingers) Visual Sharma (Counting fingers) Right eye Left eye Full Full Eye Exam - Extraocular Movement Extraocular Movement Right eye Left eye Full Full Eye Exam - Neuro/Psych Neuro/Psych Oriented x3: Yes Mood/Affect: Normal Eye Exam - Glare Testing Glare Testing Medium High Right eye 20/80 20/100 Left eye LENSTAR Right eye: AL 23.32 ACD 3.28 WTW 11.94 Left eye: AL 23.36 ACD 3.13 WTW 11.95 Eye Exam - External Exam External Exam Right eye Left eye External Normal including orbits and preauricular lymph nodes Normal including orbits and preauricular lymph nodes Eye Exam - Slit Lamp Exam Slit Lamp Exam Right eye Left eye Lids/Lashes Upper lid dermatochalasis Upper lid dermatochalasis Conjunctiva/Sclera White and quiet White and quiet Cornea Normal epithelium, stroma, endothelium, and tear film Band keratopathy at 9 o'clock Anterior Chamber Deep and quiet Deep and quiet Iris Pupil dilates well Pupil dilates well Lens 3-4+ Nuclear sclerotic cataract, 3-4+ Posterior subcapsular cataract 3-4+ Nuclear sclerotic cataract, 3-4+ Posterior subcapsular cataract Anterior Vitreous Vitreous floaters Vitreous floaters Eye Exam - Fundus Exam Fundus Exam Right eye Left eye Disc Normal Pallor C/D Ratio 0.1 0.2 Macula Retinal pigment epithelial mottling Blunt foveal reflex Vessels Normal Vascular attenuation Periphery Cobblestone degeneration Laser scar Eye Exam - Wearing Rx Wearing Rx Sphere Cylinder [place] Add Right eye -0.25 +1.25 070 +2.75 Left eye -0.25 +1.25 090 +2.75 Eye Exam Type: PAL Care Teams - documented as of this encounter Care Teams 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 Second 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 fluorometholone (FML LIQUID FILM) 0.1 % ophthalmic suspension Use 1 Drop in both eyes three times daily. Systane Complete Artificial Tears - Use 1 Drop into both eyes three times a day. Scheduled Cataract Surgery with Intraocular lens left eye on 08-26-2023 at [facility]. Return for basic consents. If you have any questions please contact our office at [phone]. After office hours or on the weekend, please call Dr. Baxter on his cell phone at [phone]. documented in [facility] encounterPrem[facility] History of Present illness Narrative* Ivan Baxter MD - 08/04/2023 3:06 PM EDT ASSESSMENT/PLAN: 1. Combined 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 - ICD9: 366.19, ICD10: H25.812 (primary diagnosis) PHYSICAL EXAM: Vital Signs: Blood pressure 187/72, pulse 72. Respiratory: Normal breath sounds, no wheezing. CARD: Normal heart sounds 1 & 2, normal sinus rhythm. Cataract Presurgical Documentation Cataract: Both eyes (OU) Current Visual Acuity Right Eye Distance CC 20/40 Left Eye Distance CC 20/200 Glare Testing: Right Eye Medium 20/80 Right Eye High 20/100 Visual Function: Misael Medina states that the decline in vision from the cataract impedes herabilities as listed in the HPI, as well as other activities of daily living. Misael Medina has confirmed that she is no longer able to function adequately on a day-to-day basis because of her current visual condition. Further, it is my medical opinion that the cataract is the primary cause, or at least a significantly contributory cause of her visual dysfunction. With uncomplicated cataract surgery and lens implantation, it is my expectation that her visual function and quality of life will improve, significantly. The risks, benefits, alternatives, personnel and complications of cataract surgery with lens implantation were discussed with Misael Medina in detail. she appeared to understand and asked that Iproceed with plans for surgery. Begin: Current Ophthalmic Meds fluorometholone (FML LIQUID FILM) 0.1 % ophthalmic suspension Use 1 Drop in both eyes three times daily. Systane Complete Artificial Tears - Use 1 Drop into both eyes three times a day. Upon eye examination, patient was found to have a visually significant cataract both eyes. Discussed cataract surgery with patient and different intraocular lens implant options with patient: basic monofocal intraocular lens implant, Toric intraocular lens implant, and presbyopia correction intraocular lens implant. In my medical opinion, based on medical history and ocular examination, cataract surgery with intraocular lens implant will correct patient's vision and improve quality of patient'sdaily living activities. Patient wishes to have traditional cataract surgery with basic intraocularlens left eye on August 26, 2023 at [facility]. Patient wishes to have cataract surgery with the option stated above. Patient understands that an intraocular lens implant does not necessarily replace the need for glasses. Patient understands that it is impossible for the surgeon to inform him/her of every possible complication that may occur. The surgeon has answered all of the patient's questions. Patient understands that if he/she has a mature or dense cataract, pseudoexfoliation cataract, or history of use of Flomax, he/she may require the use of [place]ugin Ring and/or Vision Blue during surgery. Patient understands the risks, benefits, and alternatives to surgery. -return for signing basic consents and a-scan. 2. Combined forms of age-related cataract of right eye - ICD9: 366.19, ICD10: H25.811 - will schedule once the left eye is stable. 3. 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 without macular edema, without long-term current use of insulin (HCC) - ICD9: 250.50, 362.04, ICD10: E11.3291 -Continue to monitor with Dr. Reilly for yearly dilated visits. 4. Central retinal artery occlusion, left eye - ICD9: 362.31, ICD10: H34.12 -Monitor for any changes in vision. 5. Operculated retinal tear of left eye - ICD9: 361.32, ICD10: H33.312 -Monitor for any changes in vision. 6. Ocular hypertension of left eye - ICD9: 365.04, ICD10: H40.052 Current Ophthalmic Meds brimonidine (ALPHAGAN) 0.2 % ophthalmic solution Use 1 Drop in both eyes twice daily. The nature of glaucoma was discussed, with emphasis on the non-reversible damage to the optic nerve. Treatment options and the importance of regular examinations and testing were covered in detail, as well as the consequences of non-compliance. The patient was given the opportunity to ask questions. 7. Essential hypertension - ICD9: 401.9, ICD10: I10 Continue to monitor with primary care physician. I have confirmed and edited as necessary the relevant ophthalmic history, review of systems, surgical history, and ophthalmological examination findings as obtained by the ophthalmic technical staff.I have seen and examined Misael Medina. I have discussed the examination findings, diagnosis, and treatment options with Misael Medina and/or her family. I have also reviewed and agree withthe assessment and plan as stated above and agree with all its relevant components. I gave the patient the opportunity to ask questions about the findings, diagnosis, and treatment options. Ivan Baxter MD documented in this encounterPrem[facility] Miscellaneous Notes* Addendum Note - Sarah Reilly II, OD - 05/05/2023 2:14 PM EDTAddended by: SARAH REILLY II on: 05/05/2023 02:14 PM Modules accepted: Orders documented in this encounterPrem[facility]06-21-2023 Instructions* Patient Instructions* Sarah Reilly II, OD - 05/05/2023 2:07 PM EDT Assessment and Plan H40.052 Ocular hypertension of left eye (primary encounter diagnosis) Comment: Intraocular pressures appear stable with current treatment. Advise patient as to the risksof blindness with glaucoma. Advise patient as to status of condition and necessity of close monitoring as directed. Continue use of Brimonidine 0.2% 1 gt both eyes bid. Recheck glaucoma control in 4 months with updated OCT NFA and threshold Visual field. I have confirmed and edited as necessary the relevant ophthalmic history, ROS, and the neuro exam findings as obtained by others. I have seen and examined Misael Medina. I have discussed the case and the management of this patient's care with the Resident/Fellow, if applicable. I also have reviewed and agree with the assessment and plan as stated above and agree withall of its relevant components. Sarah Reilly II, OD documented in this encounterPrem[facility]06-[facility]23 History of Present illness Narrative* Sarah Reilly II, OD - 05/05/2023 2:06 PM EDT Assessment and Plan H40.052 Ocular hypertension of left eye (primary encounter diagnosis) Comment: Intraocular pressures appear stable with current treatment. Advise patient as to the risksof blindness with glaucoma. Advise patient as to status of condition and necessity of close monitoring as directed. Continue use of Brimonidine 0.2% 1 gt both eyes bid. Recheck glaucoma control in 4 months with updated OCT NFA and threshold Visual field. I have confirmed and edited as necessary the relevant ophthalmic history, ROS, and the neuro exam findings as obtained by others. I have seen and examined Misael Median. I have discussed the case and the management of this patient's care with the Resident/Fellow, if applicable. I also have reviewed and agree with the assessment and plan as stated above and agree withall of its relevant components. Sarah Reilly II, OD documented in this encounterPrem[facility]04-03-[facility] History of Present illness NarrativePt reassessed this date by supervising PT with improvements noted in Right hip MMT and RIght hip PROM compared to eval. Pt also demonstrates improved gait mechanics and improved overall functional level. Pt reports subjective improvement with LEFS score increasing from 9/80 at eval to 61/80 now. Pthas lingering myofascial restrictions throughout RLE musculature, which responded well to STM performe this date during verbal review of HEP. Pt reported good understanding of all edu and updates to HEP made this date and is appropriate to attempt independence with HEP and symptom management at this time. Pt was also able to ascend/descend clinic stairs with reciprocal pattern and min-no evidenceof instability. [facility] Work Phone: 1(932) 623-538702-08-2023 Instructions* Patient Instructions* Sarah Reilly II, OD - 12/23/2022 2:39 PM EST Assessment and Plan H52.223 Regular astigmatism of both eyes (primary encounter diagnosis) H52.4 Presbyopia Comment: Small myopic shift in glasses power. Update glasses to maximize visual performance. H33.312 Operculated retinal tear of left eye Comment: Continue annual exams. H34.12 Central retinal artery occlusion, left eye Comment: Stable. Monitor. H40.052 Ocular hypertension of left eye Comment: Continue use of Brimonidine 0.2% 1 gt both eyes 1 gt twice a day. Recheck in 4 months. H25.813 Combined form of senile cataract of both eyes Comment: Monitor for progression E11.9 Type 2 diabetes mellitus without retinopathy Comment: No retinal complications. Continue yearly dilated eye exams. I have confirmed and edited as necessary the relevant ophthalmic history, ROS, and the neuro exam findings as obtained by others. I have seen and examined Misael Medina. I have discussed the case and the management of this patient's care with the Resident/Fellow, if applicable. I also have reviewed and agree with the assessment and plan as stated above and agree withall of its relevant components. Sarah Reilly II, OD documented in this encounterPrem[facility]02-[facility] History of Present illness Narrative* Sarah Reilly II, OD - 12/23/2022 2:35 PM EST Assessment and Plan H52.223 Regular astigmatism of both eyes (primary encounter diagnosis) H52.4 Presbyopia Comment: Small myopic shift in glasses power. Update glasses to maximize visual performance. H33.312 Operculated retinal tear of left eye Comment: Continue annual exams. H34.12 Central retinal artery occlusion, left eye Comment: Stable. Monitor. H40.052 Ocular hypertension of left eye Comment: Continue use of Brimonidine 0.2% 1 gt both eyes 1 gt twice a day. Recheck in 4 months. H25.813 Combined form of senile cataract of both eyes Comment: Monitor for progression E11.9 Type 2 diabetes mellitus without retinopathy Comment: No retinal complications. Continue yearly dilated eye exams. I have confirmed and edited as necessary the relevant ophthalmic history, ROS, and the neuro exam findings as obtained by others. I have seen and examined Misael Renée Medina. I have discussed the case and the management of this patient's care with the Resident/Fellow, if applicable. I also have reviewed and agree with the assessment and plan as stated above and agree withall of its relevant components. Sarah Reilly II, OD documented in this encounterPrem[facility]01-19-2023 History of Present illness Narrative* Sergo Chirinos MD, PhD - 12/03/2022 4:30 PM EST Assessment and Plan Referred by Dr. Reilly for tear Operculated retinal tear of left eye -on TOBACCO DIPPER with some tethering at edge of hole -s/p retinopexy (10/01/22) 2. Posterior vitreous detachment (PVD) left eye Type 2 diabetes mellitus without retinopathy -rec good blood sugar control 3. History of Central retinal artery occlusion left eye -cilioretinal artery sparing -stable/monitor -rec good blood pressure control 4. Ocular hypertension of left eye -brimonidine twice a day both eyes both eyes -monitored by Dr. Reilly 5. Cataracts both eyes -will send to Dr. Baxter when ready Plan: Resume appointments with Dr. Reilly I have confirmed and edited as necessary the relevant ophthalmic history, ROS, and the neuro exam findings as obtained by others. I have seen and examined this patient. I have discussed the case and the management of this patient's care with the Resident/Fellow, if applicable. I also have reviewed and agree with the assessment and plan as stated above and agree withall of its relevant components. Sergo Chirinos MD documented in this encounterPrem[facility]11-17-2022 Instructions* Patient Instructions* Sergo Chirinos MD, PhD - 10/01/2022 3:22 PM EST Post-Laser Patient Information Retina Laser You had laser treatment for a retina condition. Laser treatment is a common outpatient treatment for various eye problems. For all eye lasers, the light is very bright, so your vision will be dazzled for a short period of time just as if you had been photographed with a flash camera a number of times. After a few minutes (if you had a numbing injection, vision returns in a few hours as opposed to minutes and the anesthetic wears off), side vision starts to come back and slowly over a few hours, most of your vision returns; by the next day, your vision is usually back to your baseline or to 90% of baseline. Some tearing after laser treatment is common, but if redness and tearing persist the next day, please call. Pain like a headache in or around the eye is common but tends to resolve in hours. The vision the next day will be your new temporary baseline; it takes months to see what the final outcome will be, but if your central or peripheral vision seems to be getting worse after the next day, please call the office to ask if you should come for a repeat exam. For Questions or an Appointment, please call: [phone] Visit us online at [email or web address]. documented in this encounterPrem[facility]11-17-2022 History of Present illness Narrative* Sergo Chirinos MD, PhD - 10/01/2022 2:00 PM EST Assessment and Plan Referred by Dr. Reilly for tear Operculated retinal tear of left eye -on TOBACCO DIPPER with some tethering at edge of hole -strand of vitreous still attached at edge -would recommend retinopexy today, Risks, benefits, alternatives and personnel discussed with patient who consents to proceed 2. Posterior vitreous detachment (PVD) left eye Type 2 diabetes mellitus without retinopathy -rec good blood sugar control 3. History of Central retinal artery occlusion left eye -cilioretinal artery sparing -stable/monitor -rec good blood pressure control 4. Ocular hypertension of left eye -brimonidine twice a day both eyes both eyes -monitored by Dr. Reilly 5. Cataracts both eyes -will send to Dr. Baxter when ready Plan: Retinopexy left eye today Return in 7-9 weeks for exam left eye/ no OCT I have confirmed and edited as necessary the relevant ophthalmic history, ROS, and the neuro exam findings as obtained by others. I have seen and examined this patient. I have discussed the case and the management of this patient's care with the Resident/Fellow, if applicable. I also have reviewed and agree with the assessment and plan as stated above and agree withall of its relevant components. Sergo Chirinos MD documented in this encounterPrem[facility]10-25-2022 Instructions* Patient Instructions* Sarah Reilly II, OD - 09/08/2022 2:31 PM EDT Assessment and Plan E11.9 Type 2 diabetes mellitus without retinopathy (HCC) (primary encounter diagnosis) Comment: Examination shows no ocular diabetic complications today. Discussed need for optimal diabetes control to minimize chance of ocular complications. Advise patient to immediately report worsening in status or additional symptoms. Continue yearly dilated eye examinations. H40.052 Ocular hypertension of left eye Comment: Continue use of Brimonidine 0.2% 1 gt both eyes twice a day. Recheck in 6 months. H25.813 Combined forms of age-related cataract of both eyes Comment: L>R. Patient tolerates well at this time. Monitor for progression. H34.12 Central retinal artery occlusion, left eye Comment: Stable. H33.312 Operculated retinal tear of left eye Comment: Small defect at [address] Chirinos consult. H52.223 Regular astigmatism of both eyes H52.4 Presbyopia Comment: Myopic shift noted right eye. Update glasses to maximize visual performance. Discussed shift due to either diabetes control or cataract progression. Monitor I have confirmed and edited as necessary the relevant ophthalmic history, ROS, and the neuro exam findings as obtained by others. I have seen and examined Misael Medina. I have discussed the case and the management of this patient's care with the Resident/Fellow, if applicable. I also have reviewed and agree with the assessment and plan as stated above and agree withall of its relevant components. Sarah Reilly II, OD documented in this encounterPrem[facility]10-25-2022 History of Present illness Narrative* Sarah Reilly II, OD - 09/08/2022 2:28 PM EDT Assessment and Plan E11.9 Type 2 diabetes mellitus without retinopathy (HCC) (primary encounter diagnosis) Comment: Examination shows no ocular diabetic complications today. Discussed need for optimal diabetes control to minimize chance of ocular complications. Advise patient to immediately report worsening in status or additional symptoms. Continue yearly dilated eye examinations. H40.052 Ocular hypertension of left eye Comment: Continue use of Brimonidine 0.2% 1 gt both eyes twice a day. Recheck in 6 months. H25.813 Combined forms of age-related cataract of both eyes Comment: L>R. Patient tolerates well at this time. Monitor for progression. H34.12 Central retinal artery occlusion, left eye Comment: Stable. H33.312 Operculated retinal tear of left eye Comment: Small defect at [address] Chirinos consult. H52.223 Regular astigmatism of both eyes H52.4 Presbyopia Comment: Myopic shift noted right eye. Update glasses to maximize visual performance. Discussed shift due to either diabetes control or cataract progression. Monitor I have confirmed and edited as necessary the relevant ophthalmic history, ROS, and the neuro exam findings as obtained by others. I have seen and examined Misael Medina. I have discussed the case and the management of this patient's care with the Resident/Fellow, if applicable. I also have reviewed and agree with the assessment and plan as stated above and agree withall of its relevant components. Sarah Reilly II, OD documented in this encounterPrem[facility]06-21-2022 Instructions* Patient Instructions* Sarah Reilly II, OD - 05/05/2022 1:19 PM EDT Assessment and Plan H40.052 Ocular hypertension of left eye (primary encounter diagnosis) Comment: Adequate Intraocular pressure control with use of Brimonidine 0.2% 1gt left eye. Recommendstart use both eyes twice a day. Recheck in 4 months. I have confirmed and edited as necessary the relevant ophthalmic history, ROS, and the neuro exam findings as obtained by others. I have seen and examined Misael Medina. I have discussed the case and the management of this patient's care with the Resident/Fellow, if applicable. I also have reviewed and agree with the assessment and plan as stated above and agree withall of its relevant components. Sarah Reilly II, OD documented in this encounterPrem[facility]06-21-2022 History of Present illness Narrative* Sarah Reilly II, OD - 05/05/2022 1:17 PM EDT Assessment and Plan H40.052 Ocular hypertension of left eye (primary encounter diagnosis) Comment: Adequate Intraocular pressure control with use of Brimonidine 0.2% 1gt left eye. Recommendstart use both eyes twice a day. Recheck in 4 months with update of OCT NFA and Visual field. I have confirmed and edited as necessary the relevant ophthalmic history, ROS, and the neuro exam findings as obtained by others. I have seen and examined Misael Medina. I have discussed the case and the management of this patient's care with the Resident/Fellow, if applicable. I also have reviewed and agree with the assessment and plan as stated above and agree withall of its relevant components. Sarah Reilly II, OD documented in this encounterPrem[facility]09-28-2021 History of Present illness Narrative* 20 yr hip pain HX has become worse over the last yr. ++ films for bone on bone per patient. The patient has needed to use a WC for community ambulation the last 3 wks due to pain. The patient will also use a cane and/or walker. Physical findings include limited active ROM and strength at the R hip. The patient will be a high fall risk. Continue with R hip open to closed ROM and PRE as angelo. Gait/balance work can also be done as angelo. * Clinical Presentation: Stable and/or uncomplicated characteristics. * Level of Complexity: low * Problem List: activity limitations, ADLs/IADLs/self care skills, balance, decreased functional level, decreased knowledge of HEP, decreased knowledge of precautions, fall risk, gait/locomotion, pain,range of motion/joint mobility, strength and transfers. [facility] Work Phone: [phone]) 517-437102-18-2015 History of Past illness Narrative* Problem Noted Date Diagnosed Date Resolved Date Combined forms of age-relate d cataract of both eyes 01/02/2015 09/27/2023 documented as of this encounter (statuses as of 09/28/2023) [facility] History of Past illness Narrative* Problem Noted Date Diagnosed Date Resolved Date Combined forms of age-relate d cataract of both eyes 01/02/2015 09/27/2023 documented as of this encounter (statuses as of 10/01/2023) [facility]02[facility] History of Past illness Narrative* Problem Noted Date Diagnosed Date Resolved Date Combined forms of age-relate d cataract of both eyes 01/02/2015 09/27/2023 documented as of this encounter (statuses as of 10/14/2023) [facility] History of Past illness Narrative* Problem Noted Date Diagnosed Date Resolved Date Combined forms of age-relate d cataract of both eyes 01/02/2015 09/27/2023 documented as of this encounter (statuses as of 12/22/2023) [facility] NorthConsult note Author Omkar Gonzales [facility] Note Date/Time March 23, 2025 1:24pm [facility] Medical Records Department [address] [place] [address] Counseling Note - Pharmacy 03/23/25 1133 MR#: [id number] Acct: [id number] Name: MISAEL MEDINA Rep #:[id number] 13 : 1950 74 From: Omkar Gonzales PCP: Dr. Donal Castle MD Status:ADM IN Location: [place] [address] Pharmacy [place] Med Reconciliation Pharmacy Service has performed discharge medication reconciliation for this patient. The patient's discharge medication list was reviewed for discrepancies and discrepancies were resolved. Medications at Discharge Home Medications atorvastatin 10 mg tablet 10 mg PO QHS cholesterol 08/31/22 levothyroxine 100 mcg tablet (Synthroid) 100 mcg PO DAILY thyroid 08/31/22 aspirin 81 mg chewable tablet 81 mg PO DAILYCM 90 days #90 tabs 10/21/24 carvedilol 6.25 mg tablet (Coreg) 6.25 mg PO BID #60 tabs 12/01/24 furosemide 40 mg tablet 40 mg PO QAM #30 tabs 03/12/25 amoxicillin 250 mg-potassium clavulanate 125 mg tablet 1 tab PO BID 39 days #78 tabs 03/22/25 doxycycline monohydrate 100 mg capsule 100 mg PO BID 39 days #78 caps 03/22/25 03/23/25 1133 <Electronically signed by Omkar mcdonald> Date _ Omkar Aviles Signature (if applicable): Date CC: ~ Signed 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s of age-related cataract of both eyes Other and combined forms of senile cataract Central retinal artery occlusion, left eye Central artery occlusion of retina Operculated retinal tear of left eye 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 Regular astigmatism of both eyes Regular astigmatism Presbyopia documented in this encounter [facility]* Diagnosis Central retinal artery occlusion, left eye- Primary Central artery occlusion of retina Operculated retinal tear of left eye 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 documented in this encounter [facility]* Diagnosis Onset Date Resolution Status Osteoarthritis of right hip noneactive Hip pain noneactive Osteoarthritis of right hip acute 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 of senile cataract of both eyes Type 2 diabetes mellitus without retinopathy (HCC) Type II or unspecified type diabetes mellitus without mention of complication, not stated as uncontrolled [facility] Diagnosis Combined 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- Primary Other and combined forms of senile cataract Combined forms of age-related cataract of right eye Other and combined forms of senile cataract 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 without macular edema, without long-term current use of insulin (HCC) Central retinal artery occlusion, left eye Central artery occlusion of retina Operculated retinal tear of left eye 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 Essential hypertension Unspecified essential hypertension documented [facility] this encounter [facility]* Diagnosis Combined 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- Primary Combined 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 documented in this encounter [facility] Work Phone: Evaluation note* Diagnosis Combined forms of age-related cataract of right eye- Primary Other and combined forms of senile cataract Status post cataract extraction and insertion of intraocular lens of left eye [facility] Diagnosis Status post cataract extraction and insertion of intraocular lens of left eye- Primary Combined form of age-related cataract, right eye [facility]* Diagnosis Combined form of age-related cataract, right eye- Primary 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 without macular edema, without long-term current use of insulin ([facility]) Status post cataract extraction and insertion of intraocular lens of left eye Central retinal artery occlusion, left eye Central artery occlusion of retina Operculated retinal tear of left eye 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 Essential hypertension Unspecified essential hypertension Hypercholesterolemia Pure hypercholesterolemia Combined form of age-related cataract, right eye [facility] Diagnosis Combined forms of age-related cataract of right eye- Primary HTN (hypertension) Unspecified essential hypertension Class 3 severe obesity with body mass index (BMI) of 45.0 to 49.9 in adult ([facility]) Diabetes mellitus, type 2 ([facility]) Type II or unspecified type diabetes mellitus without mention of complication, not stated as uncontrolled documented in this encounter [facility] Work Phone: Evaluation note* Diagnosis Status post cataract extraction and insertion of intraocular lens of left eye- Primary Status post cataract extraction and insertion of intraocular lens of right eye 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 without macular edema, without long-term current use of insulin (HCC) Central retinal artery occlusion, left eye Central artery occlusion of retina Operculated retinal tear of left eye 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 [facility] Diagnosis Status post cataract extraction and insertion of intraocular lens of right eye- Primary Status post cataract extraction and insertion of intraocular lens of left eye documented [facility] this encounter [facility]* Diagnosis Status post cataract extraction and insertion of intraocular lens of right eye- Primary Status post cataract extraction and insertion of intraocular lens of left eye documented in this encounter [facility]No [facility] Work Phone: Evaluation note* Diagnosis 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, without long-term current use of insulin (HCC)- Primary documented in this encounter [facility] note* Diagnosis 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, without long-term current use of insulin (HCC)- Primary documented in this encounter [facility] note* Diagnosis 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, without long-term current use of insulin (HCC) documented in this encounter [facility] note* Diagnosis Tributary (branch) retinal vein occlusion, right eye, with macular edema- Primary Central retinal artery occlusion, left eye Central artery occlusion of retina Operculated retinal tear of left eye 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, without long-term current use of insulin (HCC) 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 Regular astigmatism of both eyes Regular astigmatism Presbyopia documented in this encounter [facility] note* Diagnosis 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 without macular edema, without long-term current use of insulin (HCC)- Primary documented in this encounter [facility] note* Diagnosis 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 without macular edema, without long-term current use of insulin (HCC) documented in this encounter [facility] note* Diagnosis 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 without macular edema, without long-term current use of insulin (HCC) documented in this encounter [facility] note* Diagnosis 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 without macular edema, without long-term current use of insulin (HCC) documented [facility] this encounter [facility] Author Milton Muñoz [facility] Note Date/Time March 13, 2025 7:1 0pm [facility] Medical Records Department [facility] [place] [address] H&P Exam - Hospitalist 03/13/25 1839 MR#: [id number] Acct: [id number] Name: MISAEL MEDINA Rep #:[id number] : 1950 74 From: Milton harper MD PCP: Dr. Donal Castle MD Status:ADM IN Location: [facility] [id number] HPI - General General Date of Admission: 03/13/25 HPI Narrative MISAEL MEDINA, is a 74 F who presents to the hospital with fatigue and abnormal labs. She states that over the last month she has not been feeling great and has not been eating very well, she had an appointment with cardiology yesterday because of her systolic cardiomyopathy and obtained lab work and called her today send she did present to the ER. She had acute renal failure yesterday her creatinine was 4.48 and her new baseline since her last admission in October is around 1.6-1.7, today in the ER her creatinine is 5.1. It is challenging to discern whether this is intrinsically renal or prerenal, she doesnot look significantly volume overloaded though she still has peripheral edema but she thinks it looks better than it normally does. Yesterday she was increased to 40 mg of Lasix and she had taken it yesterday however this morning she has not taken any Lasix. She denies any lightheadedness or dizziness, no chest pain, her proBNP is elevated to greater than 70,000 but she was not all that hypoxic in the ER and she is not feeling short of breath, though she does have a small to moderate right pleural effusion on chest x-ray, also her initialtroponin was 159 but her second troponin 2 hours later was also 159 and given the lack of anginal symptoms we will hold off on a heparin drip but will consultcardiology for assistance on the inpatient side. She denies any nausea, or vomiting, or diarrhea. [facility] Medical History Congestive heart failure Hypothyroidism Osteoporosis Morbid obesity with BMI of 45.0-49.9, adult Wears glasses Post-menopausal Thyroid disease Diabetes Uses wheelchair Ambulates with cane Arthritis High cholesterol Back pain TIA (transient ischemic attack) Dietary restriction Non-smoker History of pain when walking History of transesophageal echocardiography ([facility]) Cardiology follow-up encounter Hypertension Hypertension Diabetes Home Medications ?Medication ?Instructions ?Recorded ?Last Taken ?Type atorvastatin 10 mg tablet 10 mg PO QHS cholesterol 03/12/25 History levothyroxine 100 mcg tablet 100 mcg PO DAILY thyroid 08/31/22 03/13/25 History (Synthroid) aspirin 81 mg chewable tablet 81 mg PO DAILYCM 90 days #90 tabs 10/21/24 03/13/25 Rx carvedilol 6.25 mg tablet (Coreg) 6.25 mg PO BID #60 t abs 12/01/24 03/13/25 Rx dapagliflozin propanediol 10 mg 10 mg PO QDAY #30 tabs 03/12/25 Unknown Rx tablet (Farxiga) furosemide 40 mg tablet 40 mg PO QAM #30 tabs 03/13/25 Rx metformin 500 mg tablet 500 mg PO BID 03/12/2503/13 History Allergy/AdvReac Type Severity Reaction Status Date / Time No Known Allergies Allergy Verified 03/13/25 13:58 Family History Mother Hypertension Father Heart disease Surgical History Hx of colonoscopy Hx of cholecystectomy H/O: hysterectomy Social History household members: spouse Smoking Status: Never smoker alcohol intake: never substance use type: does not use caffeine: No ROS Constitutional Constitutional: Reports fatigue and malaise; Denies chills or fever(s) Eyes Eyes: Denies blurry vision ENT HEENT: Denies headache(s) or nasal discharge Cardiovascular Cardiovascular: Denies chest pain, dyspnea on exertion or syncope Respiratory/Chest Respiratory/Chest: Denies cough, shortness of breath at rest or shortness of breath with exertion Gastrointestinal Gastrointestinal: Denies constipation, diarrhea, nausea or vomiting Genitourinary Genitourinary: Denies dysuria Neurologic Neurologic: Denies focal weakness, numbness or tremor(s) Psychiatric Psychiatric: Denies anxiety or depression Vital Signs Vital Signs Vital Signs: 03/13/25 13:58 03/13/25 15:46 03/13/25 16:00 Temperature 98.9 F Temperature Source Oral Pulse Rate 74 58 L Respiratory Rate 20 H 27 H Respiratory Effort Labored Blood Pressure 104/65 119/57 L Blood Pressure Mean 78 77 Pulse Ox 93 92 Oxygen Delivery Method Room Air Oxygen Flow Rate (L/min) 03/13/25 17:48 03/13/25 18:18 03/13/25 18:20 Temperature Temperature Source Pulse Rate 63 Respiratory Rate 20 H Respiratory Effort Blood Pressure 129/70 H Blood Pressure Mean 89 Pulse Ox 87 96 96 Oxygen Delivery Method Room Air Nasal Cannula Nasal Cannula Oxygen Flow Rate (L/min) 2 2 Weight Weight: 261 lb 3.2 oz Body Mass Index (BMI) 51.0 Physical Exam Narrative General: Alert, Oriented x3, Cooperative, No apparent distress HEENT: Atraumatic, PERRLA, EOMI, Normocephalic Oral: Dry mucosa Neck: Supple, No JVD Lungs: Diminished, Normal air movement, No rhonchi, No wheeze, No rales Cardiovascular: Regular rate, Regular Rhythm, Normal S1, Normal S2, No murmurs Abdomen: Soft, Non Tender, Non-Distended, No Hepato-splenomegaly Extremities: Edema, Capillary Refill Less than 3 Seconds Skin: No rashes, No breakdown Musculoskeletal: No Tenderness to Palpation of Joints or Extremities Neurological: No focal neurological deficits, moves all extremities, sensations intact Psych/Mental Status: Normal Affect, Appropriate Results Lab / Micro Data 03/13/25 15:11 03/13/25 15:11 Labs: Laboratory Results - last 24 hr 03/13/25 15:11: WBC 7.7, RBC 4.33, Hgb 11.3 L, Hct 38.7, MCV 89.4, MCH 26.1 L, MCHC 29.2 L, RDW Std Deviation 57.1 H, RDW Coeff of Leif 17.4 H, Plt Count 241, MPV 9.4, Immature Gran % (Auto) 0.600, Neut % (Auto) 79.2 H, Lymph % (Auto) 11.5L, [place] % (Auto) 7.8, Eos % (Auto) 0.6, Baso % (Auto) 0.3, Absolute Neuts (auto)6.1, Absolute Lymphs (auto) 0.89, Nucleated RBC % 1.9, Sodium 141, Potassium 6.7H*, Chloride 114 H, Carbon Dioxide 16.6 L, Anion Gap 11, BUN 88 H, Creatinine 5.10 H, Estim Creat Clear Calc 11.41 L, Est GFR (MDRD) Non-Af 8 L, BUN/Creatinine Ratio 17.3, Glucose 138 H, Calcium 8.5, Phosphorus 5.5 H, Magnesium 2.6 H, Troponin T High Sens 159 H*, [place] II > [address] H 03/13/25 17:30: Troponin T Hi Sens 2 Hr 159 H*, Urine Color Yellow, Urine Clarity Cloudy, Urine pH 5.0, Ur Specific [place] 1.025, Urine Protein 100 H, Urine Glucose (UA) Normal, Urine Ketones Negative, Urine Occult Blood 150 H, Urine Nitrite Negative, Urine Bilirubin 1 H, Urine Urobilinogen Normal, Ur Leukocyte Esterase 500 H, Urine RBC 5-10 SEEN, Urine WBC 50-100 SEEN, Ur Squamous Epith Cells 10-25 SEEN, Ur Transition Epith Cell 0-5 SEEN, Urine Bacteria 4+, Urine Mucus 0 SEEN 03/13/25 18:21: POC Glucose 234 H Imaging Radiology Impression Chest X-Ray 03/13/25 16:45 IMPRESSION: 1. Limited hypoinflated exam. Cardiomegaly with central vascular prominence and at least [id number] RIGHT pleural effusion. 2. RIGHT-sided airspace disease adjacent to the effusion may reflect compressiveatelectasis and/or pneumonia. Follow-up to radiographic resolution recommended. 3. Additional description as above. Reading Location: [id number] Assessment & Plan Assessment/Plan (1) Acute kidney injury superimposed on chronic kidney disease: PLAN: Plan 1. Acute renal failure/UTI ? It is unclear at this time as to the etiology, urine electrolytes as well as urine and serum osmolality are pending, also obtain a urine urea given the fact that she is on diuretics ? Will consult nephrology ? Pending further labs will hold off of any IV fluids will also hold off on diuretics, I do believe that her proBNP is elevated secondary to her acute renalfailure as are her elevated troponins ? She does have a baseline creatinine of 1.6-1.7 ? UA is also somewhat consistent with UTI though it is a little bit of a dirty sample she was given a dose of Rocephin in the ER, will continue her on the inpatient side pending urine culture 2. Chronic systolic CHF with pulmonary hypertension/essential HTN/HLD ? Currently unclear whether or not she is having a CHF exacerbation, she states that her swelling is less and her mucosas are little dry ? Will hold off of diuretics but can resume her Coreg and her aspirin ? She is supposed to be on dapagliflozin however she has not started this medication yet, will not start now with her renal failure ? I do think that her troponin elevation is related to her renal failure and I discussed with cardiology who will see her on consult, about holding off on any heparin drips as she is not having any chest pain or anginal equivalents at thistime 3. DM2 ? Will hold her metformin ? Will place her on sign scale insulin ? Accu-Cheks ACHS ? Monitor make adjustments as necessary DVT: Heparin 76 minutes was spent on direct patient care, including documentation as well as chart review and collaboration with colleagues Charges/Coding Visit Charges Inpatient E&M: 90692 Init Hosp L3 03/13/251909 <Electronically signed by Milton Muñoz MD> Cosigner Signature (if applicable): CC: Dr. Donal Castle MD; Dr. Milton Muñoz MD~ Signed [facility] Work Phone: History of Present illness Narrative* Patient arrived with pushing patient in W/C. * Patient brought STD cane to use with ambulation in the clinic. * Difficulty with ambulation d/t pain in hip causing patient to slightly flex forward during stance and gait. * Completed new PRE's as well as reviewed HEP. * STW was completed with decreased pain afterward. * Updated HEP this date. [facility] Work Phone: History of Present illness Narrative* Patient arrived in W/C and was wheeled into clinic by ELECTROENCEPHALOGRAPH TECHNICIAN. * Able to ambulate short distances with cane but continues with flexed trunk posture. * No new exercises added this date d/t pait * Patient arrived with pushing patient in W/C. * Patient brought STD cane to use with ambulation in the clinic. * Difficulty with ambulation d/t pain in hip causing patient to slightly flex forward during stance and gait. * Completed new PRE's as well as reviewed HEP. * STW was completed with decreased pain afterward. [facility] Work Phone: History of Present illness NarrativePatient identified by name and date of . Patient was able to progress with standing exercises this date she demonstrated quick fatigue. She required cues to slow down and maintain hold times. She presented with palpable tension in gluts that responded well to STW.[facility] Work Phone: History of Present illness Narrative* Held all standing PRE's this date d/t pain increase. * Difficulty walking 8 feet in clinic d/t pain. * Patient had to take very small steps to get from stepper bike to the plinth. * Added more time with STW this date d/t glute/piriformis and hip flexor tightness. * Added Unattended e-stim for pain relief, patient declined cryo or HP today in conjunction with e-stim. * Patient denied all contraindications to e-stim use when questioned. [facility] Work Phone: History of Present illness Narrative* Patient has Mod antalgic gait when ambulating short distance from stepper to plinth approx 15 feet. * Guards with all transfers in clinic. * Tenderness along GT and glute during STW. * Could not progress strength this date d/t patient pain levels. [facility] Work Phone: History of Present illness NarrativePt unable to perform full exercises due to pain and deferred all ther-ex this date. Pt entered in W/C due to pain and instability. Presented with worsening percentage on LEFS to 8/80, increased pain overall, and decreasing functional level, even with attempt at compliance with skilled PT and HEP within pain limits. Pt is not appropriate for continued skilled PT and will F/U with MD concerning worsening pain and functional limits. GOals not met.[facility] Work Phone: History of Present illness Narrative* Arrived in W/C but used clinic owned FWW to ambulate in clinic but uses her own at home. * Discussed patient trying to achieve more upright posture during gait with FWW d/t observable slighttrunk flexion. * Reviewed HEP this date and progressed to 2 standing exercises. * Completed STW to R hip flexors d/t observable tightness. [facility] Work Phone: History of Present illness Narrative* Patient denied walking into the clinic from waiting are d/t fatigue this date. * Patient had difficulty with standing PRE's this date d/t fatigue. * Had increased hip flexion in stance phase with trunk flexion at the step. * Tightness with hip flexors with STW. [facility] Work Phone: History of Present illness Narrative* Came back to clinic in W/C this date but did ambulate in clinic with cane. * Observed mod antalgic gait observed this date with use of clinic. * Discussed bringing rollator next date to try to use to ambulate out of clinic. * Decreased tightness along hip flexor this date during STW. * Progressed HEP with new PRE's. [facility] Work Phone: History of Present illness Narrative* Brought rollator with her today into the clinic. Was able to ambulate to the exit doors of clinic when leaving. Arrived in W/C to get back to clinic. * Added standing R hip flexor stretch d/t tightness in the R hip flexor and poor posture in standing. * Tightness in hip flexor during STW, that was relieved by STW. [facility] Work Phone: History of Present illness Narrative* Brought rollator with her today into the clinic. Was able to ambulate to the exit doors of clinic when leaving. Arrived in W/C to get back to clinic. * Added standing R hip flexor stretch d/t tightness in the R hip flexor and poor posture in standing. * Tightness in hip flexor during STW, that was relieved by STW. [facility] Work Phone: History of Present illness Narrative* Pt reassessed this date by supervising PT with improvements noted in gait mechanics with pt able toambulate from parking lot to rehab gym [facility] improved MMT RLE as well as improving ROM in RLE. Pt still fatigues with prolonged standing/weight bearing through RLE and has instability with transfers/gait at times, but is making great goal-oriented progressat this time. Is still functionally limited with all transfers, ambulation specifically on uneven surfaces/long distances, ascending/descending stairs, and functional endurance and is appropriate for continued skilled PT. Does also still present with lingering myofascial restrictions throughout Right LE musculature, which continues to respond well to STM performed in clinic. * Response to treatment: decreased pain. * Patient was able to complete today's treatment with some difficulty. [facility] Work Phone: History of Present illness Narrative* Completed STW to HS this date with tightness palpated. * Patient also has tightness in HS causing knee flexion at rest. This is contributing to decreased upright posture in standing also. * Decreased spasms in the R hip flexor during STW. * Added side steps this date with cues to stand with improved upright posture d/t flexing at trunk. * Continue to ambulate with rollator. [facility] Work Phone: History of Present illness Narrative* Significant hip flexor spasms this date with STW needed for release of the spasms. * Continues to demo knee flexion in stance and at rest. * Added more standing PRE's this date to facilitate improved strength, balance and posture. * Instructed patient to bring cane next date to work on gait progression since she continues to ambulate with rollator. [facility] Work Phone: History of Present illness Narrative* Added slant board this date to help ease tightness in back of the leg. * Improved jeimy with gait with use of rollator. * Step ups were added to facilitate improved concentric and eccentric control. * Improved ability to complete PRE's and NMRE this date with decreased fatigue and needed * . [facility] Work Phone: Hisjvmo of Present illness Narrative* Added Airex to select standing PRE's. * Progressed time with SLS with patient needing external support d/t difficulty. * Observed improved jeimy and upright posture with gait with rollator. * Needed 2 seated rest breaks throughout session. [facility] Work Phone: History of Present illness Narrative* Added Airex to staggered balance (N) * Added BOSU this date with running man and mini lunges for improved balance and safety for ADL's. * Observed patient ambulate 10 feet in clinic w/out any AD. [facility] Work Phone: History of Present illness Narrative* Pt reassessed this date by supervising PT with improvements noted in Right hip MMT as well as improved functional endurance/activity tolerance. Pt reports subjective improvement with LEFS score improving to 52/80 this date. Presents with myofascial restriction throughout RLE musculature, which responded well to STM this date. Pt with difficulty achieving TKE on RLE but even with slightly flexed Right knee, presented with LLE possibly shorter this date. Added Standing HS stretch with hip precautions and TKE with improved knee extension, but still limited. Pt continues to have flexed trunk withuse of rollator, but demonstrates improved upright posture ambulating for short distances without rollator. Fatigues quickly still. Pt making good progress towards all POC goals and has attended 14 skilled sessions at this time, but still functionally limited and would benefit from continued skilled PT with focus on progression towards PLOF and independence with symptom management. * Patient was able to complete today's treatment with some difficulty. [facility] Work Phone: History of Present illness Narrative* Arrived to PT fatigued this date and needed standing rests between each exercises. * Progressed to dowel and bungee taps for progression from cone taps to facilitate improved LE control and proprioception. * Patient arrived with rollator but would ambulate around clinic w/out using it short distances. * Difficulty with bridges d/t weakness. * Patient was able to complete today's treatment with some difficulty. [facility] Work Phone: Hisjyfy of Present illness NarrativePatient identified by name and date of . Patient required cues to increase with upright posture throughout treatment from fwd flexed. Patient required several standing rest breaks due to report of increased fatigue this date. She required cues to slow down with exercises and focus on eccentriccontrol. [facility] Work Phone: History of Present illness Narrative* Pt entered clinic ambulating w/ a hesitated step through gait pattern utilizing a standard cane. Ptshows great upright posture, good jeimy, but still spends more time WB through the L. Pt moderately fatigued w/ exercises observed w/ heavy breathing and needing to take a few sitting rest breaks. Pt shows good determination and understanding of proper form w/ all exercises. Addition of SLS, lateral step downs for increasing hip strength. Standing quad stretch to help decreased mm tightness, STM to work through it and advised pt to keep doing it at home. Pt was able to walk short distances around clinic w/o standard cane. * Treatment provided by LINDA Mcdermott under the direct supervision of Katiana Guzman PTA. [facility] Work Phone: History of Present illness Narrative* Pt entered clinic ambulating w/ a step through gait pattern utilizing a standard cane. Increased reps on multiple exercises as well as progressing to a blue band for bridge w/ marches and a green band for TKE. Focused on maintaining an isometric bridge for 5' and then added marches, patient was able to do 4 marches per bridge. Pt moderately challenged w/ treatment today as she was heavy breathingand expressed being tired at the end. No increase in pain. * Treatment provided by LINDA Mcdermott under the direct supervision of Katiana Guzman PTA. [facility] Work Phone: reason for referral (narrative)No reason for referral information availableWAd[facility] Work Phone: Reason for visit Narrative* Initial Evaluation . R hip pain/OA. * [facility]: Summary Purpose Family History No Family History Records FoundUnknown Family Member Name Dates Details Family history of hyperchole sterolemia: Father(V18.19, Z83.42) Status:Active Family history of cardiac di sorder: Father(V17.49, Z82.49) Status:Active Family history of diabetes m ellitus: Mother, Father(V18.0, Z83.3) Status:Active Unknown Family Member Name Dates Details Family history of diabetes m ellitus: Mother, Father(V18.0, Z83.3) Status:Active Family history of cardiac di sorder: Father(V17.49, Z82.49) Status:Active Family history of hyperchole sterolemia: Father(V18.19, Z83.42) Status:Active Unknown Family Member Name Dates Details Family history of diabetes m ellitus: Mother, Father(V18.0, Z83.3) Status:Active Family history of cardiac di sorder: Father(V17.49, Z82.49) Status:Active Family history of hyperchole sterolemia: Father(V18.19, Z83.42) Status:Active Unknown Family Member Name Dates Details Family history of diabetes m ellitus: Mother, Father(V18.0, Z83.3) Status:Active Family history of cardiac di sorder: Father(V17.49, Z82.49) Status:Active Family history of hyperchole sterolemia: Father(V18.19, Z83.42) Status:Active Unknown Family Member Name Dates Details Family history of diabetes m ellitus: Mother, Father(V18.0, Z83.3) Status:Active Family history of cardiac di sorder: Father(V17.49, Z82.49) Status:Active Family history of hyperchole sterolemia: Father(V18.19, Z83.42) Status:Active Unknown Family Member Name Dates Details Family history of diabetes m ellitus: Mother, Father(V18.0, Z83.3) Status:Active Family history of cardiac di sorder: Father(V17.49, Z82.49) Status:Active Family history of hyperchole sterolemia: Father(V18.19, Z83.42) Status:Active Unknown Family Member Name Dates Details Family history of diabetes m ellitus: Mother, Father(V18.0, Z83.3) Status:Active Family history of cardiac di sorder: Father(V17.49, Z82.49) Status:Active Family history of hyperchole sterolemia: Father(V18.19, Z83.42) Status:Active Unknown Family Member Name Dates Details Family history of hyperchole sterolemia: Father(V18.19, Z83.42) Status:Active Family history of cardiac di sorder: Father(V17.49, Z82.49) Status:Active Family history of diabetes m ellitus: Mother, Father(V18.0, Z83.3) Status:Active Unknown Family Member Name Dates Details Family history of diabetes m ellitus: Mother, Father(V18.0, Z83.3) Status:Active Family history of cardiac di sorder: Father(V17.49, Z82.49) Status:Active Family history of hyperchole sterolemia: Father(V18.19, Z83.42) Status:Active Unknown Family Member Name Dates Details Family history of diabetes m ellitus: Mother, Father(V18.0, Z83.3) Status:Active Family history of cardiac di sorder: Father(V17.49, Z82.49) Status:Active Family history of hyperchole sterolemia: Father(V18.19, Z83.42) Status:Active Unknown Family Member Name Dates Details Family history of hyperchole sterolemia: Father(V18.19, Z83.42) Status:Active Family history of cardiac di sorder: Father(V17.49, Z82.49) Status:Active Family history of diabetes m ellitus: Mother, Father(V18.0, Z83.3) Status:Active Unknown Family Member Name Dates Details Family history of diabetes m ellitus: Mother, Father(V18.0, Z83.3) Status:Active Family history of cardiac di sorder: Father(V17.49, Z82.49) Status:Active Family history of hyperchole sterolemia: Father(V18.19, Z83.42) Status:Active Unknown Family Member Name Dates Details Family history of diabetes m ellitus: Mother, Father(V18.0, Z83.3) Status:Active Family history of cardiac di sorder: Father(V17.49, Z82.49) Status:Active Family history of hyperchole sterolemia: Father(V18.19, Z83.42) Status:Active Unknown Family Member Name Dates Details Family history of diabetes m ellitus: Mother, Father(V18.0, Z83.3) Status:Active Family history of cardiac di sorder: Father(V17.49, Z82.49) Status:Active Family history of hyperchole sterolemia: Father(V18.19, Z83.42) Status:Active Unknown Family Member Name Dates Details Family history of diabetes m ellitus: Mother, Father(V18.0, Z83.3) Status:Active Family history of cardiac di sorder: Father(V17.49, Z82.49) Status:Active Family history of hyperchole sterolemia: Father(V18.19, Z83.42) Status:Active Unknown Family Member Name Dates Details Family history of diabetes m ellitus: Mother, Father(V18.0, Z83.3) Status:Active Family history of cardiac di sorder: Father(V17.49, Z82.49) Status:Active Family history of hyperchole sterolemia: Father(V18.19, Z83.42) Status:Active Unknown Family Member Name Dates Details Family history of diabetes m ellitus: Mother, Father(V18.0, Z83.3) Status:Active Family history of cardiac di sorder: Father(V17.49, Z82.49) Status:Active Family history of hyperchole sterolemia: Father(V18.19, Z83.42) Status:Active Unknown Family Member Name Dates Details Family history of diabetes m ellitus: Mother, Father(V18.0, Z83.3) Status:Active Family history of cardiac di sorder: Father(V17.49, Z82.49) Status:Active Family history of hyperchole sterolemia: Father(V18.19, Z83.42) Status:Active Unknown Family Member Name Dates Details Family history of diabetes m ellitus: Mother, Father(V18.0, Z83.3) Status:Active Family history of cardiac di sorder: Father(V17.49, Z82.49) Status:Active Family history of hyperchole sterolemia: Father(V18.19, Z83.42) Status:Active Unknown Family Member Name Dates Details Family history of diabetes m ellitus: Mother, Father(V18.0, Z83.3) Status:Active Family history of cardiac di sorder: Father(V17.49, Z82.49) Status:Active Family history of hyperchole sterolemia: Father(V18.19, Z83.42) Status:Active Unknown Family Member Name Dates Details Family history of diabetes m ellitus: Mother, Father(V18.0, Z83.3) Status:Active Family history of cardiac di sorder: Father(V17.49, Z82.49) Status:Active Family history of hyperchole sterolemia: Father(V18.19, Z83.42) Status:Active Unknown Family Member Name Dates Details Family history of diabetes m ellitus: Mother, Father(V18.0, Z83.3) Status:Active Family history of cardiac di sorder: Father(V17.49, Z82.49) Status:Active Family history of hyperchole sterolemia: Father(V18.19, Z83.42) Status:Active Unknown Family Member Name Dates Details Family history of diabetes m ellitus: Mother, Father(V18.0, Z83.3) Status:Active Family history of cardiac di sorder: Father(V17.49, Z82.49) Status:Active Family history of hyperchole sterolemia: Father(V18.19, Z83.42) Status:Active Unknown Family Member Name Dates Details Family history of diabetes m ellitus: Mother, Father(V18.0, Z83.3) Status:Active Family history of cardiac di sorder: Father(V17.49, Z82.49) Status:Active Family history of hyperchole sterolemia: Father(V18.19, Z83.42) Status:Active Unknown Family Member Name Dates Details Family history of diabetes m ellitus: Mother, Father(V18.0, Z83.3) Status:Active Family history of cardiac di sorder: Father(V17.49, Z82.49) Status:Active Family history of hyperchole sterolemia: Father(V18.19, Z83.42) Status:Active Relationship Condition Age at Onset Recorded Date/T mary mother Hypertension Unknown father Cardiac disease Unknown Advance Directives No Advanced Directives Records FoundDocuments on File Type Date Recorded 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 Advance Directive(s) 06/02/2018 12:38 PM Advance Directive Response Recorded Date/ Time Name of Medical Power of Wafer Polishing Lead Worker Jamaal Medina November 19, 2022 8:03pm Living Will Yes November 19 8:03pm Power of Wafer Polishing Lead Worker Yes Nila 5th, 2 023 8:03pm Latest Code Status on File Code Status Date Activated Date Inactivated Comments Full Code 08/26/2023 10:59 AM Question Answer Comments Plan of Care: Code Status Discussion Not Compl eted Decision Maker: Provider Rationale: Patient condition do es not warrant discussion Latest Code Status on File Code Status Date Activated Date Inactivated Comments Full Code 09/30/2023 8:39 AM Question Answer Comments Plan of Care: Code Status Discussion Not Compl eted Decision Maker: Provider Rationale: Patient condition do es not warrant discussion Code Status History Code Status Date Activated Date Inactivated Comments Full Code 08/26/2023 10:59 AM 08/26/2023 3:24 PM Question Answer Comments Plan of Care: Code Status Discussion Not Compl eted Decision Maker: Provider Rationale: Patient condition do es not warrant discussion Advance Directive Response Recorded Date/ Time Living Will Yes November 19 8:03pm Power of Wafer Polishing Lead Worker Yes November 19 023 8:03pm Advance Directive Response Recorded Date/ Time Living Will Yes October 18 8:42am Power of Wafer Polishing Lead Worker Yes October 18, 2024 8:42am Name of Medical Power of Wafer Polishing Lead Worker mike Yi October 18, 2024 8:42am Living Will No October 30, 024 7:27pm Power of Wafer Polishing Lead Worker No October 30, 2024 7:27pm Advance Directive Response Recorded Date/ Time Do you have a Healthcare Power of Wafer Polishing Lead Worker? No March 13, 2025 3:46pm Advance Directive Response Recorded Date/ Time Do you have a Healthcare Power of Wafer Polishing Lead Worker? No March 13, 2025 7:56pm Medications Administered Section Active Administered Medications - up to 3 most recent administrations Medication Order MAR Action Action Date Dose Rate Site fluorescein-benoxinate 0.25-0.4 % 1 Drop (FLURESS) 1 Drop, BOTH EYES, DIRECTED, Starting on Wed05/05/22 at 1330, Until Wed05/06/22 at 0129, Administer for applanation tonometry. In the event of a Fluress shortage, administer [place]-Fluor 1 drop into both eyes as directed for applanation tonometry Given 05/05/2022 1:30 PM EDT 1 Drop Active Administered Medications - up to 3 most recent administrations Medication Order MAR Action Action Date Dose Rate Site fluorescein-benoxinate 0.25-0.4 % 1 Drop (FLURESS) 1 Drop, BOTH EYES, DIRECTED, Starting on Wed09/08/22 at 1430, Until Wed09/09/22 at 022, Administer for applanation tonometry. In the event of a Fluress shortage, administer [place]y-Fluor 1 drop into both eyes as directed for applanation tonometry Given 09/08/2022 2:30 PM EDT 1 Drop tropicamide 1 % 1 Drop (MYDRIACYL) 1 Drop, BOTH EYES, DIRECTED, Starting on Wed09/08/22 at 1430, Until Wed09/09/22 at 0229, Administer for dilation Given 09/08/2022 2:30 PM EDT 1 Drop Active Administered Medications - up to 3 most recent administrations Medication Order MAR Action Action Date Dose Rate Site PHENYLephrine 2.5 % 1 Drop (AK-DILATE, DIDIER-SYNEPHRINE) 1 Drop, BOTH EYES, DIRECTED, Starting on Wed10/01/22 at 1330, Until Wed10/02/22 at 0129, Administer for dilation PROTECT FROM LIGHT, OPHT CLINIC MED ORDERS Given 10/01/2022 1:30 PM EST 1 Drop proparacaine 0.5 % 1 Drop (ALCAINE) 1 Drop, BOTH EYES, DIRECTED, Starting on Wed10/01/22 at 1330, Until Wed10/02/22 at 0129, Administer for pneumo tonometry, tonopen tonometry, or pachymetry. In the event of a proparacaine shortage, administer 1 drop of tetracaine 0.5% ophthalmic drops into both eyes as directed for pneumo tonometry, tonopen tonometry, or pachymetry, OPHT CLINIC MED ORDERS Given 10/01/2022 1:30 PM EST 1 Drop tropicamide 1 % 1 Drop (MYDRIACYL) 1 Drop, BOTH EYES, DIRECTED, Starting on Wed10/01/22 at 1330, Until Wed10/02/22 at 0129, Administer for dilation, OPHT CLINIC MED ORDERS Given 10/01/2022 1:30 PM EST 1 Drop Active Administered Medications - up to 3 most recent administrations Medication Order MAR Action Action Date Dose Rate Site PHENYLephrine 2.5 % 1 Drop (AK-DILATE, DIDIER-SYNEPHRINE) 1 Drop, LEFT EYE, DIRECTED, Starting on Wed12/03/22 at 1430, Until Wed12/04/22 at 0229, Administer for dilation PROTECT FROM LIGHT, OPHT CLINIC MED ORDERS Given 12/03/2022 2:44 PM EST 1 Drop proparacaine 0.5 % 1 Drop (ALCAINE) 1 Drop, BOTH EYES, DIRECTED, Starting on Wed12/03/22 at 1430, Until Wed12/04/22 at 0229, Administer for pneumo tonometry, tonopen tonometry, or pachymetry. In the event of a proparacaine shortage, administer tetracaine 0.5% ophthalmic drops 1 drop in both eyes as directed for pneumo tonometry, tonopen tonometry, or pachymetry, OPHT CLINIC MED ORDERS Given 12/03/2022 2:44 PM EST 1 Drop tropicamide 1 % 1 Drop (MYDRIACYL) 1 Drop, LEFT EYE, DIRECTED, Starting on Wed12/03/22 at 1430, Until Wed12/04/22 at 0229, Administer for dilation, OPHT CLINIC MED ORDERS Given 12/03/2022 2:44 PM EST 1 Drop Active Administered Medications - up to 3 most recent administrations Medication Order MAR Action Action Date Dose Rate Site fluorescein-benoxinate 0.25-0.4 % 1 Drop (FLURESS) 1 Drop, BOTH EYES, DIRECTED, Starting on Wed12/23/22 at 1500, Until Wed12/24/22 at 0259, Administer for applanation tonometry. In the event of a Fluress shortage, administer Becky-Fluor 1 drop into both eyes as directed for applanation tonometry Given 12/23/2022 3:00 PM EST 1 Drop Active Administered Medications - up to 3 most recent administrations Medication Order MAR Action Action Date Dose Rate Site fluorescein-benoxinate 0.25-0.4 % 1 Drop (FLURESS) 1 Drop, BOTH EYES, DIRECTED, Starting on Wed05/05/23 at 1430, Until Wed05/06/23 at 0229, Administer for applanation tonometry. In the event of a Fluress shortage, administer Becky-Fluor 1 drop into both eyes as directed for applanation tonometry Given 05/05/2023 2:30 PM EDT 1 Drop Active Administered Medications - up to 3 most recent administrations Medication Order MAR Action Action Date Dose Rate Site fluorescein-benoxinate 0.25-0.4 % 1 Drop (FLURESS) 1 Drop, BOTH EYES, DIRECTED, Starting on Wed08/04/23 at 1400, Until Janneth 08/05/23 at 0159, Administer for applanation tonometry. In the event of a Fluress shortage, administer [place]-Fluor 1 drop into both eyes as directed for applanation tonometry Given 08/04/2023 2:00 PM EDT 1 Drop PHENYLephrine 2.5 % 1 Drop (AK-DILATE, DIDIER-SYNEPHRINE) 1 Drop, BOTH EYES, DIRECTED, Starting on Wed08/04/23 at 1400, Until Janneth 08/05/23 at 0159, Administer for dilation PROTECT FROM LIGHT Given 08/04/2023 2:00 PM EDT 1 Drop proparacaine 0.5 % 1 Drop (ALCAINE) 1 Drop, BOTH EYES, DIRECTED, Starting on Wed08/04/23 at 1400, Until Janneth 08/05/23 at 0159, Administer for pneumo tonometry, tonopen tonometry, or pachymetry. In the event of a proparacaine shortage, administer tetracaine 0.5% ophthalmic drops 1 drop in the left eye as directed for pneumo tonometry, tonopen tonometry, or pachymetry Given 08/04/2023 2:00 PM EDT 1 Drop tropicamide 1 % 1 Drop (MYDRIACYL) 1 Drop, BOTH EYES, DIRECTED, Starting on Wed08/04/23 at 1400, Until Janneth 08/05/23 at 0159, Administer for dilation Given 08/04/2023 2:00 PM EDT 1 Drop Active Administered Medications - up to 3 most recent administrations Medication Order MAR Action Action Date Dose Rate Site fluorescein-benoxinate 0.3-0.4 % 1 Drop (FLURESS) 1 Drop, BOTH EYES, DIRECTED, Starting on Wed09/02/23 at 1300, Until Wed09/03/23 at 0059, Administer for applanation tonometry. In the event of a Fluress shortage, administer [place]-Fluor 1 drop into both eyes as directed for applanation tonometry Given 09/02/2023 1:00 PM EDT 1 Drop Active Administered Medications - up to 3 most recent administrations Medication Order MAR Action Action Date Dose Rate Site proparacaine 0.5 % 1 Drop (ALCAINE) 1 Drop, BOTH EYES, DIRECTED, Starting on Wed10/01/23 at 1330, Until 10/02/23 at 0129, Administer for pneumo tonometry, tonopen tonometry, or pachymetry. In the event of a proparacaine shortage, administer tetracaine 0.5% ophthalmic drops 1 drop in the left eye as directed for pneumo tonometry, tonopen tonometry, or pachymetry Given 10/01/2023 1:30 PM EST 1 Drop Chief Complaint and Reason for Visit Chief Complaint Hip pain Unilateral primary osteoarthritis, right hip pre-op RT TOTAL HIP W MIN RT TOTAL HIP W MIN Reason for Visit Osteoarthritis of ri ght hip Hip pain Osteoarthritis of right hip Chief Complaint Admit Date SOB October 13, 2024 4:38pm PNA WITH SEPSIS WITH ACUTE HYPOXIC RESPI RATORY October 18, 2024 12:29am PNA WITH SEPSIS WITH ACUTE HYPOXIC RESPI RATORY October 18, 2024 7:42am PNA WITH SEPSIS WITH ACUTE HYPOXIC RESPI RATORY October 18, 2024 12:45pm PNA WITH SEPSIS WITH ACUTE HYPOXIC RESPI RATORY October 19, 2024 8:48am PNA WITH SEPSIS WITH ACUTE HYPOXIC RESPI RATORY October 19, 2024 9:05am PNA WITH SEPSIS WITH ACUTE HYPOXIC RESPI RATORY October 20, 2024 7:29am PNA WITH SEPSIS WITH ACUTE HYPOXIC RESPI RATORY October 21, 2024 11:37am HEART FAILURE EXACERBATION October 6:01pm HEART FAILURE EXACERBATION October 11:06am HEART FAILURE EXACERBATION October 11:44am HEART FAILURE EXACERBATION October 11:18am EORDER November 06, 2024 2:00pm NEED ORDER November 10, 2024 12:44pm [facility] 11/02 CHF December 01, 2024 1 0:15am E-ORDER December 01, 2024 1 1:21am CHF December 12, 2024 1 :46pm Reason for Visit Admit Date High cholesterol October 18, 2024 1 2:29am LV dysfunction October 18, 2024 1 2:29am Pulmonary hypertension October 18 12:29am Acute hypoxemic respiratory failure [facility] 2023 12:29am JOSUE (acute kidney injury) October 18, 2024 12:29am Elevated troponin October 18, 2024 1 2:29am Hyperkalemia October 18, 2024 1 2:29am Metabolic acidosis October 18, 2024 1 2:29am Pneumonia October 18, 2024 1 2:29am Sepsis October 18, 2024 1 2:29am Diabetes October 18, 2024 1 2:29am Hypertension October 18, 2024 1 2:29am Morbid obesity with BMI of 45.0-49.9, ad ult October 18, 2024 12:29am Acute HFrEF (heart failure with reduced ejection fraction) October 30, 2024 6:01pm JOSUE (acute kidney injury) October 30, 2024 6:01pm Dyspnea October 30, 2024 6:01pm Hypoxia October 30, 2024 6:01pm Congestive heart failure October 30, 2024 6:01pm Aortic valve stenosis December 01, 2024 10:15am High cholesterol December 01, 2024 1 0:15am LV dysfunction December 01, 2024 1 0:15am Pulmonary hypertension December 01 10:15am Chronic renal disease, stage 3, moderately decreased glomerular filtration December 01, 2024 10:15am Hypertension December 01, 2024 1 0:15am Chief Complaint Admit Date [facility] 11/02 CHF December 01, 2024 1 0:15am E-ORDER December 01, 2024 1 1:21am CHF December 12, 2024 1 :46pm 3 M FU March 12, 2025 1:0 2pm ABNORMAL LABS March 13, 2025 6:2 7pm ABNORMAL LABS March 13, 2025 6:3 9pm Reason for Visit Admit Date Aortic valve stenosis December 01, 2024 10:15am High cholesterol December 01, 2024 1 0:15am LV dysfunction December 01, 2024 1 0:15am Pulmonary hypertension December 01 10:15am Chronic renal disease, stage 3, moderately decreased glomerular filtration December 01, 2024 10:15am Hypertension December 01, 2024 1 0:15am Aortic valve stenosis March 12, 2025 1 :02pm Congestive heart failure March 12 1:02pm High cholesterol March 12, 2025 1:0 2pm Chronic renal disease, stage 3, moderately decreased glomerular filtration March 12, 2025 1:02pm Hypertension March 12, 2025 1:0 2pm Acute kidney injury superimposed on respiratory therapy 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 March 13, 2025 6:27pm Chief Complaint Admit Date [facility] 11/02 CHF December 01, 2024 1 0:15am E-ORDER December 01, 2024 1 1:21am CHF December 12, 2024 1 :46pm 3 M FU March 12, 2025 1:0 2pm ABNORMAL LABS March 13, 2025 6:2 7pm ABNORMAL LABS March 13, 2025 6:3 9pm ABNORMAL LABS March 14, 2025 8:4 7am ABNORMAL LABS March 14, 2025 11: 28am ABNORMAL LABS March 15, 2025 10:24a m ABNORMAL LABS March 15, 2025 10:56a m ABNORMAL LABS March 16, 2025 10:42a m ABNORMAL LABS March 16, 2025 12:40p m ABNORMAL LABS March 17, 2025 8:20am ABNORMAL LABS March 17, 2025 10:44a m ABNORMAL LABS March 18, 2025 9:35am ABNORMAL LABS March 19, 2025 8:40am ABNORMAL LABS March 20, 2025 5:35pm ABNORMAL LABS March 21, 2025 8:08am ABNORMAL LABS March 22, 2025 8:28am ABNORMAL LABS March 23, 2025 7:40am Reason for Visit Admit Date Aortic valve stenosis December 01, 2024 10:15am High cholesterol December 01, 2024 1 0:15am LV dysfunction December 01, 2024 1 0:15am Pulmonary hypertension December 01 10:15am Chronic renal disease, stage 3, moderately decreased glomerular filtration December 01, 2024 10:15am Hypertension December 01, 2024 1 0:15am Aortic valve stenosis March 12, 2025 1 :02pm Congestive heart failure March 12 1:02pm High cholesterol March 12, 2025 1:0 2pm Chronic renal disease, stage 3, moderately decreased glomerular filtration March 12, 2025 1:02pm Hypertension March 12, 2025 1:0 2pm Aortic valve stenosis March 13, 2025 6 :27pm Congestive heart failure March 13 6:27pm Ecchymosis March 13, 2025 6:2 7pm Other acute osteomyelitis, right ankle a nd foot March 13, 2025 6:27pm Pulmonary hypertension March 13, 2025 6:27pm Right hallux osteomyelitis March 13, 025 6:27pm Type 2 diabetes mellitus with diabetic p olyneuropathy March 13, 2025 6:27pm Acute kidney injury superimposed on respiratory therapy 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 March 13, 2025 6:27pm Acute on chronic renal failure February 6:27pm Chronic renal disease, stage 3, moderately decreased glomerular filtration March 13, 2025 6:27pm Hypertension March 13, 2025 6:2 7pm 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 March 13, 2025 6:27pm Hyperkalemia March 13, 2025 6:2 7pm Chief Complaint Admit Date CHF December 12, 2024 1 :46pm 3 M FU March 12, 2025 1:0 2pm ABNORMAL LABS March 13, 2025 6:2 7pm ABNORMAL LABS March 13, 2025 6:3 9pm ABNORMAL LABS March 14, 2025 8:4 7am ABNORMAL LABS March 14, 2025 11: 28am ABNORMAL LABS March 15, 2025 10:24a m ABNORMAL LABS March 15, 2025 10:56a m ABNORMAL LABS March 16, 2025 10:42a m ABNORMAL LABS March 16, 2025 12:40p m ABNORMAL LABS March 17, 2025 8:20am ABNORMAL LABS March 17, 2025 10:44a m ABNORMAL LABS March 18, 2025 9:35am ABNORMAL LABS March 19, 2025 8:40am ABNORMAL LABS March 20, 2025 5:35pm ABNORMAL LABS March 21, 2025 8:08am ABNORMAL LABS March 22, 2025 8:28am ABNORMAL LABS March 23, 2025 7:40am 2 W FU April 04, 2025 11:32 am Reason for Visit Admit Date Aortic valve stenosis March 12, 2025 1 :02pm Congestive heart failure March 12 1:02pm High cholesterol March 12, 2025 1:0 2pm Hypertension March 12, 2025 1:0 2pm Chronic renal disease, stage 3, moderately decreased glomerular filtration March 12, 2025 1:02pm Ecchymosis March 13, 2025 6:2 7pm Acute kidney injury superimposed on respiratory therapy 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 March 13, 2025 6:27pm Acute on chronic renal failure February 6:27pm Hyperkalemia March 13, 2025 6:2 7pm 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 March 13, 2025 6:27pm Other acute osteomyelitis, right ankle a nd foot March 13, 2025 6:27pm Right hallux osteomyelitis March 13, 2 025 6:27pm Aortic valve stenosis March 13, 2025 6 :27pm Congestive heart failure March 13 6:27pm Hypertension March 13, 2025 6:2 7pm Pulmonary hypertension March 13, 2025 6:27pm Type 2 diabetes mellitus with diabetic p olyneuropathy March 13, 2025 6:27pm Chronic renal disease, stage 3, moderately decreased glomerular filtration March 13, 2025 6:27pm Chief Complaint Admit Date 3 M FU March 12, 2025 1:0 2pm ABNORMAL LABS March 13, 2025 6:2 7pm ABNORMAL LABS March 13, 2025 6:3 9pm ABNORMAL LABS March 14, 2025 8:4 7am ABNORMAL LABS March 14, 2025 11: 28am ABNORMAL LABS March 15, 2025 10:24a m ABNORMAL LABS March 15, 2025 10:56a m ABNORMAL LABS March 16, 2025 10:42a m ABNORMAL LABS March 16, 2025 12:40p m ABNORMAL LABS March 17, 2025 8:20am ABNORMAL LABS March 17, 2025 10:44a m ABNORMAL LABS March 18, 2025 9:35am ABNORMAL LABS March 19, 2025 8:40am ABNORMAL LABS March 20, 2025 5:35pm ABNORMAL LABS March 21, 2025 8:08am ABNORMAL LABS March 22, 2025 8:28am ABNORMAL LABS March 23, 2025 7:40am 2 W FU April 04, 2025 11:32 am 6 W FU May 16, 2025 11:31 am Reason for Visit Admit Date Aortic valve stenosis March 12, 2025 1 :02pm Congestive heart failure March 12 1:02pm Hypertension March 12, 2025 1:0 2pm High cholesterol March 12, 2025 1:0 2pm Chronic renal disease, stage 3, moderately decreased glomerular filtration March 12, 2025 1:02pm Aortic valve stenosis March 13, 2025 6 :27pm Congestive heart failure March 13 6:27pm Ecchymosis March 13, 2025 6:2 7pm Hypertension March 13, 2025 6:2 7pm Acute kidney injury superimposed on respiratory therapy 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 March 13, 2025 6:27pm Acute on chronic renal failure February 6:27pm Hyperkalemia March 13, 2025 6:2 7pm 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 March 13, 2025 6:27pm Other acute osteomyelitis, right ankle a nd foot March 13, 2025 6:27pm Right hallux osteomyelitis March 13, 025 6:27pm Pulmonary hypertension March 13, 2025 6:27pm Type 2 diabetes mellitus with diabetic p olyneuropathy March 13, 2025 6:27pm Chronic renal disease, stage 3, moderately decreased glomerular filtration March 13, 2025 6:27pm Acute kidney failure April 04, 2025 11:3 2am Aortic valve stenosis April 04, 2025 11: 32am Congestive heart failure April 04, 2025 11:32am Hyperlipidemia April 04, 2025 11:32 am Hypertension April 04, 2025 11:32 am Acute kidney failure May 16, 2025 11:3 1am Aortic valve stenosis May 16, 2025 11: 31am Congestive heart failure May 16, 2025 11:31am Hyperlipidemia May 16, 2025 11:31 am Hypertension May 16, 2025 11:31 am Chief Complaint Admit Date 3 M FU March 12, 2025 1:0 2pm ABNORMAL LABS March 13, 2025 6:2 7pm ABNORMAL LABS March 13, 2025 6:3 9pm ABNORMAL LABS March 14, 2025 8:4 7am ABNORMAL LABS March 14, 2025 11: 28am ABNORMAL LABS March 15, 2025 10:24a m ABNORMAL LABS March 15, 2025 10:56a m ABNORMAL LABS March 16, 2025 10:42a m ABNORMAL LABS March 16, 2025 12:40p m ABNORMAL LABS March 17, 2025 8:20am ABNORMAL LABS March 17, 2025 10:44a m ABNORMAL LABS March 18, 2025 9:35am ABNORMAL LABS March 19, 2025 8:40am ABNORMAL LABS March 20, 2025 5:35pm ABNORMAL LABS March 21, 2025 8:08am ABNORMAL LABS March 22, 2025 8:28am ABNORMAL LABS March 23, 2025 7:40am 2 W FU April 04, 2025 11:32 am 6 W FU May 16, 2025 11:31 am INT LAB ORDERS FOR SUMAN AND DEMITER May 16, 2025 12:24pm EORDER- STOOL May 21, 2025 12:42 pm Additional Source Comments INFORMATION SOURCE (unrecogn ized section and content) DATE CREATED AUTHOR 05/10/2018 [facility] DATE CREATED AUTHOR AUTHOR'S ORGANIZ ATION 05/11/2018 [facility] DATE CREATED AUTHOR AUTHOR'S ORGANIZ ATION 11/29/2018 [facility] DATE CREATED AUTHOR AUTHOR'S ORGANIZ ATION 03/14/2019 [facility] DATE CREATED AUTHOR AUTHOR'S ORGANIZ ATION 01/06/2023 [facility] DATE CREATED AUTHOR AUTHOR'S ORGANIZ ATION 02/17/2023 [employer] DATE CREATED AUTHOR AUTHOR'S ORGANIZ ATION 08/17/2023 [facility] DATE CREATED AUTHOR AUTHOR'S ORGANIZ ATION 08/18/2023 [facility] DATE CREATED AUTHOR AUTHOR'S ORGANIZ ATION 10/02/2023 [facility] DATE CREATED AUTHOR AUTHOR'S ORGANIZ ATION 03/25/2025 [facility] DATE CREATED AUTHOR AUTHOR'S ORGANIZ ATION 06/04/2025 [facility] DATE CREATED AUTHOR AUTHOR'S ORGANIZ ATION 2025 [facility] Source Comments (unrecognize d section and content) In the event this informatio n is protected by the Federal Confidentiality of Alcohol and Drug Abuse Patient Records regulations: The Federal rules restrict any use of the information to criminally investigate or prosecute any alcohol or drug abuse patient.[facility] the event this information is protected by the Federal Confidentiality of Alcohol and Drug Abuse Patient Records regulations: The Federal rules restrict any use of the information to criminally investigate or prosecute any alcohol or drug abuse patient.[facility] the event this information is protected by the Federal Confidentiality of Alcohol and Drug Abuse Patient Records regulations: The Federal rules restrict any use of the information to criminally investigate or prosecute any alcohol or drug abuse patient.[facility] the event this information is protected by the Federal Confidentiality of Alcohol and Drug Abuse Patient Records regulations: The Federal rules restrict any use of the information to criminally investigate or prosecute any alcohol or drug abuse patient.[facility]In the event this information is protected by the Federal Confidentiality of Alcohol and Drug Abuse Patient Records regulations: The Federal rules restrict any use of the information to criminally investigate or prosecute any alcohol or drug abuse patient.[facility] NorthIn the event this information is protected by the Federal Confidentiality of Alcohol and Drug Abuse Patient Records regulations: The Federal rules restrict any use of the information to criminally investigate or prosecute any alcohol or drug abuse patient.[facility] NorthIn the event this information is protected by the Federal Confidentiality of Alcohol and Drug Abuse Patient Records regulations: The Federal rules restrict any use of the information to criminally investigate or prosecute any alcohol or drug abuse patient.[facility] NorthIn the event this information is protected by the Federal Confidentiality of Alcohol and Drug Abuse Patient Records regulations: The Federal rules restrict any use of the information to criminally investigate or prosecute any alcohol or drug abuse patient.[facility] NorthIn the event this information is protected by the Federal Confidentiality of Alcohol and Drug Abuse Patient Records regulations: The Federal rules restrict any use of the information to criminally investigate or prosecute any alcohol or drug abuse patient.[facility] NorthIn the event this information is protected by the Federal Confidentiality of Alcohol and Drug Abuse Patient Records regulations: The Federal rules restrict any use of the information to criminally investigate or prosecute any alcohol or drug abuse patient.[facility]In the event this information is protected by the Federal Confidentiality of Alcohol and Drug Abuse Patient Records regulations: The Federal rules restrict any use of the information to criminally investigate or prosecute any alcohol or drug abuse patient.[facility] NorthIn the event this information is protected by the Federal Confidentiality of Alcohol and Drug Abuse Patient Records regulations: The Federal rules restrict any use of the information to criminally investigate or prosecute any alcohol or drug abuse patient.[facility] NorthIn the event this information is protected by the Federal Confidentiality of Alcohol and Drug Abuse Patient Records regulations: The Federal rules restrict any use of the information to criminally investigate or prosecute any alcohol or drug abuse patient.[facility]In the event this information is protected by the Federal Confidentiality of Alcohol and Drug Abuse Patient Records regulations: The Federal rules restrict any use of the information to criminally investigate or prosecute any alcohol or drug abuse patient.[facility] NorthIn the event this information is protected by the Federal Confidentiality of Alcohol and Drug Abuse Patient Records regulations: The Federal rules restrict any use of the information to criminally investigate or prosecute any alcohol or drug abuse patient.[facility] NorthIn the event this information is protected by the Federal Confidentiality of Alcohol and Drug Abuse Patient Records regulations: The Federal rules restrict any use of the information to criminally investigate or prosecute any alcohol or drug abuse patient.[facility] NorthIn the event this information is protected by the Federal Confidentiality of Alcohol and Drug Abuse Patient Records regulations: The Federal rules restrict any use of the information to criminally investigate or prosecute any alcohol or drug abuse patient.[facility] NorthIn the event this information is protected by the Federal Confidentiality of Alcohol and Drug Abuse Patient Records regulations: The Federal rules restrict any use of the information to criminally investigate or prosecute any alcohol or drug abuse patient.[facility] NorthIn the event this information is protected by the Federal Confidentiality of Alcohol and Drug Abuse Patient Records regulations: The Federal rules restrict any use of the information to criminally investigate or prosecute any alcohol or drug abuse patient.[facility] NorthIn the event this information is protected by the Federal Confidentiality of Alcohol and Drug Abuse Patient Records regulations: The Federal rules restrict any use of the information to criminally investigate or prosecute any alcohol or drug abuse patient.[facility] NorthIn the event this information is protected by the Federal Confidentiality of Alcohol and Drug Abuse Patient Records regulations: The Federal rules restrict any use of the information to criminally investigate or prosecute any alcohol or drug abuse patient.[facility] NorthIn the event this information is protected by the Federal Confidentiality of Alcohol and Drug Abuse Patient Records regulations: The Federal rules restrict any use of the information to criminally investigate or prosecute any alcohol or drug abuse patient.[facility] Reason for Visit (unrecogniz ed section and content) Reason Comments Branch Retinal Vein Occlusion Follow Up Nonproliferative Diabetic Retinopathy Fo llow Up Specialty Diagnoses / Procedures Referred By Len matson Referred To Contact Ophthalmology / OPHTHALMOLOGY Diagnoses Type 2 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, right eye STI AVASTIN RE Procedures IN BEVACIZUMAB INJECTION INJECTION Sergo Chirinos MD, PhD [address] [place] [address] Yen Gamboa MD [address] [place] [address] Referral ID Status Reason Start Date Expiration Date V isits Requested Visits Authorized [id number] Authorized 08/24/2024 11/22/2024 99 99 Reason Comments Ocular Hypertension Evaluation left eye Reason Comments Ocular Hypertension Evaluation Left eye Reason Comments Retinal tear evaluation left eye Diabetes Reason Comments Operculated Retinal Tear Left eye Posterior Vitreous Detachment Follow Up Left eye History of CRAO Left eye Ocular Hypertension Follow Up Left eye Reason Comments Blurred Vision Both Eyes Reason Comments Ocular Hypertension Evaluation Pressure check Reason Comments Blurred Vision Both Eyes 1 year Difficulty Reading Both Eyes 1 year Glare Halos Both Eyes Ocular Hypertension Follow Up Left eye Non-insulin Dependent Diabetes Mellitus Blood sugar 123 History of retinal tear left eye Reason Comments Refill Request Specialty Diagnoses / Procedures Referred By Len matson Referred To Contact Diagnoses 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 [H25.812] Procedures IN XCAPSL CTRC RMVL INSJ IO LENS PROSTH W/O ECP CATARACT EXTRACTION W/IOL IMPLANT L EYE Ivan Baxter MD [address] [place] [address] [place] [address] [facility] [address] [place] [id number] Referral ID Status Reason Start Date Expiration Date Visits Re quested Visits Authorized [id number] 1 Reason Comments Post-op Cataract OS Status Post Cataract Surgery with Intraocular lens left eye 08-26-23 Blurred Vision Right Eye Reason Comments Post-op Cataract OS 08/26/23 OS Reason Comments Cataract Follow Up Right eye Post-op Cataract OS 08/26/2023 Specialty Diagnoses / Procedures Referred By Len matson Referred To Contact Diagnoses Combined forms of age-related cataract of right eye 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] Procedures IN XCAPSL CTRC RMVL INSJ IO LENS PROSTH W/O ECP Phacoemulsification Cataract with Insertion Intraocular Lens Ivan Baxter MD [address] [facility] [place] [address] [phone] Referral ID Status Reason Start Date Expiration Date Visits Re quested Visits Authorized [id number] 1 Reason Comments Post-op Cataract OD 09/30/2023 Post-op Cataract OS 08/26/2023 Reason Comments Post-op Cataract Right eye-09/30/2023 Left eye-08/26/2023 Reason Comments Post-op Cataract Post-op Cataract Rig ht eye-09/30/2023 Left eye-08/26/2023 Reason Comments Shadow In Vision Right eye Reason Comments Retinal Evaluation Reason Comments Macular Branch Vein Occlusion Right eye Reason Comments Ocular Hypertension Evaluation Diabetes Reason Comments Branch Retinal Vein Occlusion Follow Up Macular superior branch vein occlusion Specialty Diagnoses / Procedures Referred By Len matson Referred To Contact Ophthalmology / OPHTHALMOLOGY Diagnoses Type 2 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, right eye STI avastin OD/ OCT- okay to overbook at 9:15 Procedures IN BEVACIZUMAB INJECTION INJECTION Sergo Chirinos MD, PhD [address] [place] [address] Sergo Chirinos MD, PhD [address] [id number] Referral ID Status Reason Start Date Expiration Date V isits Requested Visits Authorized [id number] Authorized 11/16/2024 11/14/2025 99 99 Reason Comments Branch Retinal Vein Occlusion Right eye Specialty Diagnoses / Procedures Referred By Len matson Referred To Contact Ophthalmology / OPHTHALMOLOGY Diagnoses Type 2 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, right eye STI avastin OD/ OCT- okay to overbook at 9:15 Procedures IN BEVACIZUMAB INJECTION INJECTION Sergo Chirinos MD, PhD [address] [place] [place] [id number] Phone: tel: Sergo Chirinos MD, PhD [address] [place] [address] Phone: tel:[phone] fax:[phone] Reason Comments Branch Retinal Vein Occlusion Follow Up Specialty Diagnoses / Procedures Referred By Len matson Referred To Contact Ophthalmology / OPHTHALMOLOGY Diagnoses Type 2 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, right eye ([facility]) STI avastin OD/ OCT- okay to overbook at 9:15 Procedures IN BEVACIZUMAB INJECTION INJECTION Sergo Chirinos MD, PhD [address] [place] [address] Phone: tel: Sergo Chirinos MD, PhD [address] [place] [address] Phone: tel:[phone] fax:[phone] Care Teams (unrecognized sec tion and content) Mill Tender Second Operator Relationship Specialty Start Date End Date Girish Simon PCP - General Family Practice 12/11/11 Yasmeen López MD Primary Staff Physician Cardiology 01/31/19 Mill Tender Second Operator Relationship Specialty Start Date End Date Girish Simon PCP - General Family Medicine 12/11/11 Yasmeen López MD Primary Staff Physician Cardiology 01/31/19 Mill Tender Second Operator Relationship Specialty Start Date End Date Girish Simon PCP - General Family Medicine 12/11/11 Yasmeen López MD Primary Staff Physician Cardiology 01/31/19 Mill Tender Second Operator Relationship Specialty Start Date End Date Girish Simon PCP - General Family Medicine 12/11/11 Yasmeen López MD Primary Staff Physician Cardiology 01/31/19 Mill Tender Second Operator Relationship Specialty Start Date End Date Girish Simon PCP - General Family Medicine 12/11/11 Yasmeen López MD Primary Staff Physician Cardiology 01/31/19 Mill Tender Second Operator Relationship Specialty Start Date End Date Girish Simon PCP - General Family Medicine 12/11/11 Yasmeen López MD Primary Staff Physician Cardiology 01/31/19 Mill Tender Second Operator Relationship Specialty Start Date End Date Girish Simon PCP - General Family Medicine 12/11/11 Yasmeen López MD Primary Staff Physician Cardiology 01/31/19 Mill Tender Second Operator Relationship Specialty Start Date End Date Girish Simon MD PCP - General Family Medicine 12/11/11 Yasmeen López MD Primary Staff Physician Cardiology 01/31/19 Mill Tender Second Operator Relationship Specialty Start Date End Date Girish Simon MD [address] [place], [place] [id number] PCP - General 10/02/19 Mill Tender Second Operator Relationship Specialty Start Date End Date Girish Simon MD PCP - General Family Medicine 12/11/11 Yasmeen López MD Primary Staff Physician Cardiology 01/31/19 Mill Tender Second Operator Relationship Specialty Start Date End Date Girish Simon MD PCP - General Family Medicine 12/11/11 Yasmeen López MD Primary Staff Physician Cardiology 01/31/19 Mill Tender Second Operator Relationship Specialty Start Date End Date Girish Simon MD PCP - General Family Medicine 12/11/11 Yasmeen López MD Primary Staff Physician Cardiology 01/31/19 Mill Tender Second Operator Relationship Specialty Start Date End Date Girish Simon MD [address] [place] [address] PCP - General 10/02/19 Mill Tender Second Operator Relationship Specialty Start Date End Date Girish Simon MD PCP - General Family Medicine 12/11/11 Yasmeen López MD Primary Staff Physician Cardiology 01/31/19 Sarah Reilly II, OD [address] [place] [address] Referring Optometry 10/01/23 Mill Tender Second Operator Relationship Specialty Start Date End Date Donal Castle MD [address] [place] [id number] PCP - General Internal Medicine 10/13/23 Yasmeen López MD Primary Staff Physician Cardiology 01/31/19 Sarah Reilly II OD [address] [place] [id number] Referring Optometry 10/01/23 Mill Tender Second Operator Relationship Specialty Start Date End Date Dnoal Castle MD [address] [facility] [address] [place], [place] [id number] PCP - General Internal Medicine 10/13/23 Yasmeen López MD Primary Staff Physician Cardiology 01/31/19 Sarah Reilly II, OD [address] [place] [address] Referring Optometry 10/01/23 Team Status: Active Member Role Status Dates Dr. Girish Simon MD Family Provider Active Donal Castle MD Primary Care Provider Active Team Status: Inactive Member Role Status Dates Donal Castle MD Primary Care Provider, Attending Prov ider Active Mill Tender Second Operator Relationship Specialty Start Date End Date Donal Castle MD [address] [address] PCP - General Internal Medicine 10/13/23 Yasmeen López MD Primary Staff Physician Cardiology 01/31/19 Sarah Reilly II, OD [address] [place] [address] Referring Optometry 10/01/23 Mill Tender Second Operator Relationship Specialty Start Date End Date Donal Castle MD [address] [facility] [address] [place], [place] [id number] PCP - General Internal Medicine 10/13/23 Yasmeen López MD Primary Staff Physician Cardiology 01/31/19 Sarah Reilly II, OD [address] [place] [address] Referring Optometry 10/01/23 Mill Tender Second Operator Relationship Specialty Start Date End Date Donal Castle MD [address] [facility] [address] [place] [address] PCP - General Internal Medicine 10/13/23 Yasmeen López MD Primary Staff Physician Cardiology 01/31/19 Sarah Reilly II, OD [address] [place] [address] Referring Optometry 10/01/23 Mill Tender Second Operator Relationship Specialty Start Date End Date Doanl Castle MD [address] [facility] [address] [place] [address] PCP - General Internal Medicine 10/13/23 Yasmeen López MD Primary Staff Physician Cardiology 01/31/19 Sarah Reilly II, OD [address] [place] [address] Referring Optometry 10/01/23 Mill Tender Second Operator Relationship Specialty Start Date End Date Donal Castle MD [address] [facility] [address] [place] [address] PCP - General Internal Medicine 10/13/23 Yasmeen López MD Primary Staff Physician Cardiology 01/31/19 Sarah Reilly II OD [address] [place] [address] Referring Optometry 10/01/23 Team Status: Inactive Member Role Status Wes Castle MD Primary Care Provider Active St art: October 13, 2024 End: October 13, 2024 Dr. Kenan White MD Attending Provider Active Start: October 13, 2024 End: October 13, 2024 Dr. Kenan White MD Referring Provider Active Start: October 13, 2024 End: October 13, 2024 Team Status: Inactive Member Role Status Dates Donal Castle MD Primary Care Provider Active St art: October 18, 2024 End: October 21, 2024 Dr. Lucas Cui DO Emergency Provider Active Start: October 18, 2024 End: October 21, 2024 Dr. Girish Campos DO Admit Provider Active Start: October 18, 2024 End: October 21, 2024 Dr. Girish Campos DO Other Provider Active Start: October 18, 2024 End: October 21, 2024 Dr. Laura Donahue MD Other Provider Active Start: October 18, 2024 End: October 21, 2024 Dr. Jagjit Dominguez MD Other Provider Active Star t: October 18, 2024 End: October 21, 2024 Dr. Kj Olvera MD Other Provider Active Sta rt: October 18, 2024 End: October 21, 2024 Dr. Ramone Adams MD Other Provider Active Start : October 18, 2024 End: October 21, 2024 Dr. Ruth Ann Mendez MD Other Provider Active Star t: October 18, 2024 End: October 21, 2024 Dr. Joao Ramirez MD Other Provider Active St art: October 18, 2024 End: October 21, 2024 Dr. Bandar Linares MD Other Provider Active Start: October 18, 2024 End: October 21, 2024 Dr. Abelardo Cannon MD Other Provider Active S tart: October 18, 2024 End: October 21, 2024 Dr. Sean Pitts MD Other Provider Active Start: October 18, 2024 End: October 21, 2024 Man Lainez GENERAL MANAGER [employer]LE [employer]OUD, GENERAL MANAGER [employer]OUD-C Other Provider Active Start : October 18, 2024 End: October 21, 2024 Janene Renner PA, PA Other Provider Active Start: October 18, 2024 End: October 21, 2024 Dr. Seth Garnica DO Attending Provider Active Start: October 18, 2024 End: October 21, 2024 Dr. Girish Herrera MD Other Provider Active Star t: October 18, 2024 End: October 21, 2024 Team Status: Active Member Role Status Dates Donal Castle MD Primary Care Provider Active St art: October 18, 2024 Dr. Lucas Cui DO Emergency Provider Active Start: October 18, 2024 Dr. Girish Campos DO Admit Provider Active Start: October 18, 2024 Dr. Girish Campos DO Other Provider Active Start: October 18, 2024 Dr. Girish Herrera MD Other Provider Active Star t: October 18, 2024 Dr. Joao Ramirez MD Attending Provider Active Start: October 18, 2024 Team Status: Active Member Role Status Wes Castle MD Primary Care Provider Active St art: October 18, 2024 Dr. Bandar Linares MD Attending Provider Activ e Start: October 18, 2024 Team Status: Active Member Role Status Wes Castle MD Primary Care Provider Active St art: October 18, 2024 Dr. Lucas Cui DO Emergency Provider Active Start: October 18, 2024 Dr. Girish Campos DO Admit Provider Active Start: October 18, 2024 Dr. Girish Campos DO Referring Provider Active Start: October 18, 2024 Dr. Girish Campos DO Other Provider Active Start: October 18, 2024 Dr. Girish Herrera MD Other Provider Active Star t: October 18, 2024 Dr. Laura Donahue MD Other Provider Active Start: October 18, 2024 Dr. Jagjit Dominguez MD Other Provider Active Star t: October 18, 2024 Dr. Kj Olvera MD Other Provider Active Sta rt: October 18, 2024 Dr. Ramone Adams MD Other Provider Active Start : October 18, 2024 Dr. Ruth Ann Mendez MD Other Provider Active Star t: October 18, 2024 Dr. Joao Ramirez MD Other Provider Active St art: October 18, 2024 Dr. Bandar Linares MD Other Provider Active Start: October 18, 2024 Dr. Abelardo Cannon MD Other Provider Active S tart: October 18, 2024 Dr. Sean Pitts MD Other Provider Active Start: October 18, 2024 Man Lainez [employer]AL MA[employer]GER [employer], GENERAL MA[employer]GER [employer]-C Other Provider Active Start : October 18, 2024 Janene Renner PA, PA Other Provider Active Start: October 18, 2024 Dr. Madhu Varela MD Other Provider Active Start: October 18, 2024 Dr. Stephen Gaston MD Other Provider Active Start: October 18, 2024 Dr. Christian Paez MD Other Provider Active Star t: October 18, 2024 Dr. Mark Mcfarland DO Attending Provider Active S tart: October 18, 2024 Dr. Mark Mcfarland DO Other Provider Active Start : October 18, 2024 Dr. Girish Sherman MD Other Provider Active Sta rt: October 18, 2024 Dr. Dwight Naylor MD Other Provider Active St art: October 18, 2024 Dr. Lan Marcano MD Other Provider Active S tart: October 18, 2024 Dr. Silvia Meehan MD Other Provider Active Start: October 18, 2024 Dr. Taj Frank MD Other Provider Active Start : October 18, 2024 Dr. Onur Medina MD Other Provider Active Start: October 18, 2024 Dr. Tamika Mann MD Other Provider Active Star t: October 18, 2024 Dr. Houston Rendon MD Other Provider Active Sta rt: October 18, 2024 Dr. Mulugeta Cooper MD Other Provider Active Star t: October 18, 2024 Dr. Kishore Patrick MD Other Provider Active St art: October 18, 2024 Dr. Lg Marte MD Other Provider Active Star t: October 18, 2024 Dr. Clarence Goodwin DO Other Provider Active St art: October 18, 2024 Dr. Vincent Santamaria MD Other Provider Active Start: October 18, 2024 Dr. Len Dial , Other Provider Active Start: October 18, 2024 Dr. Yohan Tovar MD Other Provider Active Star t: October 18, 2024 Dr. Ti Shoemaker MD Other Provider Active Sta rt: October 18, 2024 Team Status: Active Member Role Status Dates Donal Castle MD Primary Care Provider Active St art: October 19, 2024 Dr. Lucas Cui DO Emergency Provider Active Start: October 19, 2024 Dr. Girish Campos DO Admit Provider Active Start: October 19, 2024 Dr. Girish Campos DO Other Provider Active Start: October 19, 2024 Dr. Girish Herrera MD Attending Provider Active Start: October 19, 2024 Dr. Girish Herrera MD Other Provider Active Star t: October 19, 2024 Dr. Laura Donahue MD Other Provider Active Start: October 19, 2024 Dr. Jagjit Dominguez MD Other Provider Active Star t: October 19, 2024 Dr. Kj Olvera MD Other Provider Active Sta rt: October 19, 2024 Dr. Ramone Adams MD Other Provider Active Start : October 19, 2024 Dr. Ruth Ann Mendez MD Other Provider Active Star t: October 19, 2024 Dr. Joao Ramirez MD Other Provider Active St art: October 19, 2024 Dr. Bandar Linares MD Other Provider Active Start: October 19, 2024 Dr. Abelardo Cannon MD Other Provider Active S tart: October 19, 2024 Dr. 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 Madhu Varela MD Other Provider Active Start: October 19, 2024 Dr. Stephen Gaston MD Other Provider Active Start: October 19, 2024 Dr. Christian Paez MD Other Provider Active Star t: October 19, 2024 Dr. Mark Mcfarland DO Other Provider Active Start : October 19, 2024 Dr. Girish Sherman MD Other Provider Active Sta rt: October 19, 2024 Dr. Dwight Naylor MD Other Provider Active St art: October 19, 2024 Dr. Lan Marcano MD Other Provider Active S tart: October 19, 2024 Dr. Silvia Meehan MD Other Provider Active Start: October 19, 2024 Dr. Taj Frank MD Other Provider Active Start : October 19, 2024 Dr. Onur Medina MD Other Provider Active Start: October 19, 2024 Dr. Tamika Mann MD Other Provider Active Star t: October 19, 2024 Dr. Houston Rendon MD Other Provider Active Sta rt: October 19, 2024 Dr. Mulugeta Cooper MD Other Provider Active Star t: October 19, 2024 Dr. Kishore Patrick MD Other Provider Active St art: October 19, 2024 Dr. Lg Marte MD Other Provider Active Star t: October 19, 2024 Dr. Clarence Goodwin , Other Provider Active St art: October 19, 2024 Dr. Vincent Santamaria MD Other Provider Active Start: October 19, 2024 Dr. Len Dial DO Other Provider Active Start: October 19, 2024 Dr. Yohan Tovar MD Other Provider Active Star t: October 19, 2024 Dr. Ti Shoemaker MD Other Provider Active Sta rt: October 19, 2024 Team Status: Active Member Role Status Dates Donal Castle MD Primary Care Provider Active St art: October 19, 2024 Dr. Lucas Cui DO Emergency Provider Active Start: October 19, 2024 Dr. Girish Campos DO Admit Provider Active Start: October 19, 2024 Dr. Girish Campos DO Other Provider Active Start: October 19, 2024 Dr. Girish Herrera MD Other Provider Active Star t: October 19, 2024 Dr. Laura Donahue MD Other Provider Active Start: October 19, 2024 Dr. Jagjit Dominguez MD Other Provider Active Star t: October 19, 2024 Dr. Kj Olvera MD Other Provider Active Sta rt: October 19, 2024 Dr. Ramone Adams MD Other Provider Active Start : October 19, 2024 Dr. Ruth Ann Mendez MD Other Provider Active Star t: October 19, 2024 Dr. Joao Ramirez MD Attending Provider Active Start: October 19, 2024 Dr. Joao Ramirez MD Other Provider Active St art: October 19, 2024 Dr. Bandar Linares MD Other Provider Active Start: October 19, 2024 Dr. Abelardo Cannon MD Other Provider Active S tart: October 19, 2024 Dr. 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 Madhu Varela MD Other Provider Active Start: October 19, 2024 Dr. Stephen Gaston MD Other Provider Active Start: October 19, 2024 Dr. Christian Paez MD Other Provider Active Star t: October 19, 2024 Dr. Mark Mcfarland DO Other Provider Active Start : October 19, 2024 Dr. Girish Sherman MD Other Provider Active Sta rt: October 19, 2024 Dr. Dwight Naylor MD Other Provider Active St art: October 19, 2024 Dr. Lan Marcano MD Other Provider Active S tart: October 19, 2024 Dr. Silvia Meehan MD Other Provider Active Start: October 19, 2024 Dr. Taj Frank MD Other Provider Active Start : October 19, 2024 Dr. Onur Medina MD Other Provider Active Start: October 19, 2024 Dr. Tamika Mann MD Other Provider Active Star t: October 19, 2024 Dr. Houston Rendon MD Other Provider Active Sta rt: October 19, 2024 Dr. Mulugeta Cooper MD Other Provider Active Star t: October 19, 2024 Dr. Kishore Patrick MD Other Provider Active St art: October 19, 2024 Dr. Lg Marte MD Other Provider Active Star t: October 19, 2024 Dr. Clarence Goodwin , Other Provider Active St art: October 19, 2024 Dr. Vincent Santamaria MD Other Provider Active Start: October 19, 2024 Dr. Len Dial DO Other Provider Active Start: October 19, 2024 Dr. Yohan Tovar MD Other Provider Active Star t: October 19, 2024 Dr. Ti Shoemaker MD Other Provider Active Sta rt: October 19, 2024 Team Status: Active Member Role Status Dates Donal Castle MD Primary Care Provider Active St art: October 20, 2024 Dr. Lucas Cui DO Emergency Provider Active Start: October 20, 2024 Dr. Girish Campos , DO Admit Provider Active Start: October 20, 2024 Dr. Girish Campos DO Other Provider Active Start: October 20, 2024 Dr. Girish Herrera MD Attending Provider Active Start: October 20, 2024 Dr. Girish Herrera MD Other Provider Active Star t: October 20, 2024 Dr. Laura Donahue MD Other Provider Active Start: October 20, 2024 Dr. Jagjit Dominguez MD Other Provider Active Star t: October 20, 2024 Dr. Kj Olvera MD Other Provider Active Sta rt: October 20, 2024 Dr. Ramone Adams MD Other Provider Active Start : October 20, 2024 Dr. Ruth Ann Mendez MD Other Provider Active Star t: October 20, 2024 Dr. Joao Ramirez MD Other Provider Active St art: October 20, 2024 Dr. Bandar Linares MD Other Provider Active Start: October 20, 2024 Dr. Abelardo Cannon MD Other Provider Active S tart: October 20, 2024 Dr. Sean Pitts MD Other Provider Active Start: October 20, 2024 Man Lainez [employer], GENERAL MA[employer]GER [employer]-C Other Provider Active Start : October 20, 2024 Janene Renner PA, PA Other Provider Active Start: October 20, 2024 Team Status: Active Member Role Status Dates Donal Castle MD Primary Care Provider Active St art: October 21, 2024 Dr. Lucas Cui DO Emergency Provider Active Start: October 21, 2024 Dr. Girish Campos , DO Admit Provider Active Start: October 21, 2024 Dr. Girish Campos DO Other Provider Active Start: October 21, 2024 Dr. Laura Donahue MD Other Provider Active Start: October 21, 2024 Dr. Jagjit Dominguez MD Other Provider Active Star t: October 21, 2024 Dr. Kj Olvera MD Other Provider Active Sta rt: October 21, 2024 Dr. Ramone Adams MD Other Provider Active Start : October 21, 2024 Dr. Ruth Ann Mendez MD Other Provider Active Star t: October 21, 2024 Dr. Joao Ramirez MD Other Provider Active St art: October 21, 2024 Dr. Bandar Linares MD Other Provider Active Start: October 21, 2024 Dr. Abelardo Cannon MD Other Provider Active S tart: October 21, 2024 Dr. 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 Seth Garnica DO Attending Provider Active Start: October 21, 2024 Dr. Seth Garnica DO Other Provider Active Start: October 21, 2024 Dr. Girish Herrera MD Other Provider Active Star t: October 21, 2024 Team Status: Inactive Member Role Status Dates Donal Castle MD Primary Care Provider Active St art: October 30, 2024 End: November 02, 2024 Dr. Fitz Deleon DO Emergency Provider Active Start: October 30, 2024 End: November 02, 2024 Dr. Aparna Mabry MD Admit Provider Active Star t: October 30, 2024 End: November 02, 2024 Dr. Aparna Mabry MD Other Provider Active Star t: October 30, 2024 End: November 02, 2024 Dr. Seth Garnica DO Attending Provider Active Start: October 30, 2024 End: November 02, 2024 Team Status: Active Member Role Status Wes Castle MD Primary Care Provider Active St art: October 31, 2024 Dr. Fitz Deleon DO Emergency Provider Active Start: October 31, 2024 Dr. Aparna Mabry MD Admit Provider Active Star t: October 31, 2024 Dr. Aparna Mabry MD Other Provider Active Star t: October 31, 2024 Dr. Seth Garnica DO Attending Provider Active Start: October 31, 2024 Dr. Seth Garnica DO Other Provider Active Start: October 31, 2024 Team Status: Active Member Role Status Wes Castle MD Primary Care Provider Active St art: November 01, 2024 Dr. Fitz Deleon DO Emergency Provider Active Start: November 01, 2024 Dr. Aparna Mabry MD Admit Provider Active Star t: November 01, 2024 Dr. Aparna Mabry MD Other Provider Active Star t: November 01, 2024 Dr. Seth Garnica DO Attending Provider Active Start: November 01, 2024 Dr. Seth Garnica DO Other Provider Active Start: November 01, 2024 Team Status: Active Member Role Status Wes Castle MD Primary Care Provider Active St art: November 02, 2024 Dr. Fitz Deleon DO Emergency Provider Active Start: November 02, 2024 Dr. Aparna Mabry MD Admit Provider Active Star t: November 02, 2024 Dr. Aparna Mabry MD Other Provider Active Star t: November 02, 2024 Dr. Seth Garnica DO Attending Provider Active Start: November 02, 2024 Dr. Seth Garnica DO Other Provider Active Start: November 02, 2024 Team Status: Inactive Member Role Status Wes Castle MD Primary Care Provider Active St art: November 06, 2024 End: November 06, 2024 Dr. Seth Garnica DO Attending Provider Active Start: November 06, 2024 End: November 06, 2024 Dr. Seth Garnica DO Referring Provider Active Start: November 06, 2024 End: November 06, 2024 Team Status: Inactive Member Role Status Wes Castle MD Primary Care Provider Active St art: November 10, 2024 End: November 10, 2024 Donal Castle MD Attending Provider Active Start : November 10, 2024 End: November 10, 2024 Donal Castle MD Referring Provider Active Start : November 10, 2024 End: November 10, 2024 Team Status: Inactive Member Role Status Wes Castle MD Primary Care Provider Active St art: December 01, 2024 End: December 01, 2024 Donal Castle MD Referring Provider Active Start : December 01, 2024 End: December 01, 2024 Dr. Joao Ramirez MD Attending Provider Active Start: December 01, 2024 End: December 01, 2024 Team Status: Inactive Member Role Status Wes Castle MD Primary Care Provider Active St art: December 01, 2024 End: December 01, 2024 Dr. Joao Ramirez MD Attending Provider Active Start: December 01, 2024 End: December 01, 2024 Dr. Joao Ramirez MD Referring Provider Active Start: December 01, 2024 End: December 01, 2024 Team Status: Inactive Member Role Status Dates Donal Castle MD Primary Care Provider Active St art: December 08, 2024 End: December 08, 2024 Dr. Joao Ramirez MD Attending Provider Active Start: December 08, 2024 End: December 08, 2024 Dr. Joao Ramirez MD Referring Provider Active Start: December 08, 2024 End: December 08, 2024 Team Status: Inactive Member Role Status Wes Castle MD Primary Care Provider Active St art: December 12, 2024 End: December 12, 2024 Dr. Joao Ramirez MD Attending Provider Active Start: December 12, 2024 End: December 12, 2024 Dr. Joao Ramirez MD Referring Provider Active Start: December 12, 2024 End: December 12, 2024 Team Status: Active Member Role Status Wes Castle MD Primary Care Provider Active St art: December 12, 2024 Dr. Ramone Adams MD Attending Provider Active S tart: December 12, 2024 Team Status: Inactive Member Role Status eWs Castle MD Primary Care Provider Active St art: January 11, 2025 End: January 11, 2025 Donal Castle MD Attending Provider Active Start : January 11, 2025 End: January 11, 2025 Donal Castle MD Referring Provider Active Start : January 11, 2025 End: January 11, 2025 [employer] Second Operator Relationship Specialty Start Date End Date Donal Castle MD Count includes the [facility] Renaldo LutherThayer [facility] [address] [place] [address] PCP - General Internal Medicine 10/13/23 Yasmeen López MD Primary Staff Physician Cardiology 01/31/19 Sarah Reilly II OD [address] [place] [address] Referring Optometry 10/01/23 Team Status: Active Member Role Status Wes Castle MD Primary Care Provider Active Team Status: Inactive Member Role Status Wes Castle MD Primary Care Provider Active St art: March 12, 2025 End: March 12, 2025 Donal Castle MD Referring Provider Active Start : March 12, 2025 End: March 12, 2025 TASNEEM Mei Attending Provider Active St art: March 12, 2025 End: March 12, 2025 Team Status: Active Member Role Status Wes Castle MD Primary Care Provider Active St art: March 12, 2025 TASNEEM Mei Attending Provider Active St art: March 12, 2025 TASNEEM Mei Referring Provider Active St art: March 12, 2025 Team Status: Active Member Role Status Wes Castle MD Primary Care Provider Active St art: March 13, 2025 Dr. Fitz Deleon , Emergency Provider Active Start: March 13, 2025 Dr. Milton Muñoz MD Admit Provider Active Start: March 13, 2025 Dr. Milton Muñoz MD Attending Provider Active Start: March 13, 2025 Team Status: Active Member Role Status Wes Castle MD Primary Care Provider Active St art: March 13, 2025 Dr. Fitz Deleon , Emergency Provider Active Start: March 13, 2025 Dr. Milton Muñoz MD Admit Provider Active Start: March 13, 2025 Dr. Milton Muñoz MD Attending Provider Active Start: March 13, 2025 Dr. Milton Muñoz MD Other Provider Active Start: March 13, 2025 Team Status: Inactive Member Role Status Wes Castle MD Primary Care Provider Active St art: March 12, 2025 End: March 12, 2025 TASNEEM Mei Attending Provider Active St art: March 12, 2025 End: March 12, 2025 TASNEEM Mei Referring Provider Active St art: March 12, 2025 End: March 12, 2025 Team Status: Inactive Member Role Status Wes Castle MD Primary Care Provider Active St art: March 13, 2025 End: March 23, 2025 Dr. Fitz Deleon DO Emergency Provider Active Start: March 13, 2025 End: March 23, 2025 Dr. Milton Muñoz MD Admit Provider Active Start: March 13, 2025 End: March 23, 2025 Dr. Milton Muñoz MD Other Provider Active Start: March 13, 2025 End: March 23, 2025 Dr. Seth Garnica DO Other Provider Active Start: March 13, 2025 End: March 23, 2025 Dr. Bandar Linares MD Other Provider Active Start: March 13, 2025 End: March 23, 2025 Dr. Joao Francois MD Other Provider Active Sta rt: March 13, 2025 End: March 23, 2025 Dr. Lorraine Grande MD Other Provider Active Start: March 13, 2025 End: March 23, 2025 Dr. Lucas Coronado , TAVO Other Provider Active S tart: March 13, 2025 End: March 23, 2025 Dr. Fitz Ryan DO Attending Provider Active Start: March 13, 2025 End: March 23, 2025 Dr. Fitz Ryan DO Other Provider Active Star t: March 13, 2025 End: March 23, 2025 Dr. Oswald Bonds MD Other Provider Active Start: March 13, 2025 End: March 23, 2025 Dr. Aparna Mabry MD Other Provider Active Star t: March 13, 2025 End: March 23, 2025 Team Status: Active Member Role Status Dates Donal Castle MD Primary Care Provider Active St art: March 14, 2025 Dr. Fitz Deleon DO Emergency Provider Active Start: March 14, 2025 Dr. Milton Muñoz MD Admit Provider Active Start: March 14, 2025 Dr. Milton Muñoz MD Other Provider Active Start: March 14, 2025 Dr. Bandar Linares MD Other Provider Active Start: March 14, 2025 Dr. Lorraine Grande MD Other Provider Active Start: March 14, 2025 Dr. Seth Garnica DO Other Provider Active Start: March 14, 2025 Dr. Ramone Adams MD Attending Provider Active S tart: March 14, 2025 Team Status: Active Member Role Status Dates Donal Castle MD Primary Care Provider Active St art: March 14, 2025 Dr. Fitz Deleon DO Emergency Provider Active Start: March 14, 2025 Dr. Milton Muñoz MD Admit Provider Active Start: March 14, 2025 Dr. Milton Muñoz MD Other Provider Active Start: March 14, 2025 Dr. Bandar Linares MD Other Provider Active Start: March 14, 2025 Dr. Lorraine Grande MD Other Provider Active Start: March 14, 2025 Dr. Seth Garnica DO Attending Provider Active Start: March 14, 2025 Dr. Seth Garnica DO Other Provider Active Start: March 14, 2025 Team Status: Active Member Role Status Dates Donal Castle MD Primary Care Provider Active St art: March 15, 2025 Dr. Fitz Deleon DO Emergency Provider Active Start: March 15, 2025 Dr. Milton Muñoz MD Admit Provider Active Start: March 15, 2025 Dr. Milton Muñoz MD Other Provider Active Start: March 15, 2025 Dr. Bandar Linares MD Other Provider Active Start: March 15, 2025 Dr. Lorraine Grande MD Other Provider Active Start: March 15, 2025 Dr. Seth Garnica DO Attending Provider Active Start: March 15, 2025 Dr. Seth Garnica DO Other Provider Active Start: March 15, 2025 Dr. Joao Francois MD Other Provider Active Sta rt: March 15, 2025 Team Status: Active Member Role Status Dates Donal Castle MD Primary Care Provider Active St art: March 15, 2025 Dr. Fitz Deleon DO Emergency Provider Active Start: March 15, 2025 Dr. Milton Muñoz MD Admit Provider Active Start: March 15, 2025 Dr. Milton Muñoz MD Other Provider Active Start: March 15, 2025 Dr. Bandar Linares MD Other Provider Active Start: March 15, 2025 Dr. Lorraine Grande MD Other Provider Active Start: March 15, 2025 Dr. Seth Garnica DO Other Provider Active Start: March 15, 2025 Dr. Joao Francois MD Attending Provider Active Start: March 15, 2025 Dr. Joao Francois MD Other Provider Active Sta rt: March 15, 2025 Team Status: Active Member Role Status Wes Castle MD Primary Care Provider Active St art: March 16, 2025 Dr. Fitz Deleon DO Emergency Provider Active Start: March 16, 2025 Dr. Milton Muñoz MD Admit Provider Active Start: March 16, 2025 Dr. Milton Muñoz MD Other Provider Active Start: March 16, 2025 Dr. Bandar Linares MD Other Provider Active Start: March 16, 2025 Dr. Lorraine Grande MD Other Provider Active Start: March 16, 2025 Dr. Seth Garnica DO Attending Provider Active Start: March 16, 2025 Dr. Seth Garnica DO Other Provider Active Start: March 16, 2025 Dr. Joao Francois MD Other Provider Active Sta rt: March 16, 2025 Dr. Lucas Coronado DPM Other Provider Active S tart: March 16, 2025 Team Status: Active Member Role Status Wes Castle MD Primary Care Provider Active St art: March 16, 2025 Dr. Fitz Deleon DO Emergency Provider Active Start: March 16, 2025 Dr. Milton Muñoz MD Admit Provider Active Start: March 16, 2025 Dr. Milton Muñoz MD Other Provider Active Start: March 16, 2025 Dr. Bandar Linares MD Other Provider Active Start: March 16, 2025 Dr. Lorraine Grande MD Other Provider Active Start: March 16, 2025 Dr. Seth Garnica DO Other Provider Active Start: March 16, 2025 Dr. Joao Francois MD Attending Provider Active Start: March 16, 2025 Dr. Joao Francois MD Other Provider Active Sta rt: March 16, 2025 Dr. Lucas Coronado DPM Other Provider Active S tart: March 16, 2025 Team Status: Active Member Role Status Wes Castle MD Primary Care Provider Active St art: March 16, 2025 Dr. Fitz Velazquez MD Attending Provider Active S tart: March 16, 2025 Dr. Lucas Coronado DPM Referring Provider Active Start: March 16, 2025 Team Status: Active Member Role Status Wes Castle MD Primary Care Provider Active St art: March 17, 2025 Dr. Fitz Deleon , DO Emergency Provider Active Start: March 17, 2025 Dr. Milton Muñoz MD Admit Provider Active Start: March 17, 2025 Dr. Milton Muñoz MD Other Provider Active Start: March 17, 2025 Dr. Bandar Linares MD Other Provider Active Start: March 17, 2025 Dr. Lorraine Grande MD Other Provider Active Start: March 17, 2025 Dr. Seth Garnica DO Other Provider Active Start: March 17, 2025 Dr. Joao Francois MD Other Provider Active Sta rt: March 17, 2025 Dr. Lucas Coronado DPM Other Provider Active S tart: March 17, 2025 Dr. Antonio Perdomo MD Attending Provider Active Start: March 17, 2025 Team Status: Active Member Role Status Wes Castle MD Primary Care Provider Active St art: March 17, 2025 Dr. Fitz Deleon DO Emergency Provider Active Start: March 17, 2025 Dr. Milton Muñoz MD Admit Provider Active Start: March 17, 2025 Dr. Milton Muñoz MD Other Provider Active Start: March 17, 2025 Dr. Bandar Linares MD Other Provider Active Start: March 17, 2025 Dr. Lorraine Grande MD Other Provider Active Start: March 17, 2025 Dr. Seth Garnica DO Attending Provider Active Start: March 17, 2025 Dr. Seth Garnica DO Other Provider Active Start: March 17, 2025 Dr. Joao Francois MD Other Provider Active Sta rt: March 17, 2025 Dr. Lucas Coronado DPM Other Provider Active S tart: March 17, 2025 Team Status: Active Member Role Status Wes Castle MD Primary Care Provider Active St art: March 18, 2025 Dr. Fitz Deleon DO Emergency Provider Active Start: March 18, 2025 Dr. Milton Muñoz MD Admit Provider Active Start: March 18, 2025 Dr. Milton Muñoz MD Other Provider Active Start: March 18, 2025 Dr. Bandar Linares MD Other Provider Active Start: March 18, 2025 Dr. Lorraine Grande MD Other Provider Active Start: March 18, 2025 Dr. Seth Garnica , DO Attending Provider Active Start: March 18, 2025 Dr. Seth Garnica , DO Other Provider Active Start: March 18, 2025 Dr. Joao Francois MD Other Provider Active Sta rt: March 18, 2025 Dr. Lucas Coronado DPM Other Provider Active S tart: March 18, 2025 Team Status: Active Member Role Status Dates Donal Castle MD Primary Care Provider Active St art: March 19, 2025 Dr. Fitz Deleon , DO Emergency Provider Active Start: March 19, 2025 Dr. Milton Muñoz MD Admit Provider Active Start: March 19, 2025 Dr. Milton Muñoz MD Other Provider Active Start: March 19, 2025 Dr. Bandar Linares MD Other Provider Active Start: March 19, 2025 Dr. Lorraine Grande MD Other Provider Active Start: March 19, 2025 Dr. Joao Francois MD Other Provider Active Sta rt: March 19, 2025 Dr. Lucas Coronado DPM Other Provider Active S tart: March 19, 2025 Dr. Fitz Ryan DO Attending Provider Active Start: March 19, 2025 Dr. Fitz Ryan , DO Other Provider Active Star t: March 19, 2025 Dr. Seth Garnica , DO Other Provider Active Start: March 19, 2025 Team Status: Active Member Role Status Dates Donal Castle MD Primary Care Provider Active St art: March 20, 2025 Dr. Fitz Deleon , DO Emergency Provider Active Start: March 20, 2025 Dr. Milton Muñoz MD Admit Provider Active Start: March 20, 2025 Dr. Milton Muñoz MD Other Provider Active Start: March 20, 2025 Dr. Seth Garnica , DO Other Provider Active Start: March 20, 2025 Dr. Bandar Linares MD Other Provider Active Start: March 20, 2025 Dr. Joao Francois MD Other Provider Active Sta rt: March 20, 2025 Dr. Lorraine Grande MD Other Provider Active Start: March 20, 2025 Dr. Lucas Coronado DPM Other Provider Active S tart: March 20, 2025 Dr. Aparna Mabry MD Attending Provider Active Start: March 20, 2025 Dr. Aparna Mabry MD Other Provider Active Star t: March 20, 2025 Dr. Fitz Ryan DO Other Provider Active Star t: March 20, 2025 Dr. Oswald Bonds MD Other Provider Active Start: March 20, 2025 Team Status: Active Member Role Status Dates Donal Castle MD Primary Care Provider Active St art: March 21, 2025 Dr. Fitz Deleon DO Emergency Provider Active Start: March 21, 2025 Dr. Milton Muñoz MD Admit Provider Active Start: March 21, 2025 Dr. Milton Muñoz MD Other Provider Active Start: March 21, 2025 Dr. Seth Garnica DO Other Provider Active Start: March 21, 2025 Dr. Bandar Linares MD Other Provider Active Start: March 21, 2025 Dr. Joao Francois MD Other Provider Active Sta rt: March 21, 2025 Dr. Lorraine Grande MD Other Provider Active Start: March 21, 2025 Dr. Lucas Coronado DPM Other Provider Active S tart: March 21, 2025 Dr. Fitz Ryan DO Attending Provider Active Start: March 21, 2025 Dr. Fizt Ryan DO Other Provider Active Star t: March 21, 2025 Dr. Oswald Bonds MD Other Provider Active Start: March 21, 2025 Dr. Aparna Mabry MD Other Provider Active Star t: March 21, 2025 Team Status: Active Member Role Status Dates Donal Castle MD Primary Care Provider Active St art: March 22, 2025 Dr. Fitz Deleon DO Emergency Provider Active Start: March 22, 2025 Dr. Milton Muñoz MD Admit Provider Active Start: March 22, 2025 Dr. Milton Muñoz MD Other Provider Active Start: March 22, 2025 Dr. Seth Garnica , DO Other Provider Active Start: March 22, 2025 Dr. Bandar Linares MD Other Provider Active Start: March 22, 2025 Dr. Joao Francois MD Other Provider Active Sta rt: March 22, 2025 Dr. Lorraine Grande MD Other Provider Active Start: March 22, 2025 Dr. Lucas Coronado DPM Other Provider Active S tart: March 22, 2025 Dr. Fitz Ryan DO Attending Provider Active Start: March 22, 2025 Dr. Fitz Ryan DO Other Provider Active Star t: March 22, 2025 Dr. Oswald Bonds MD Other Provider Active Start: March 22, 2025 Dr. Aparna Mabry MD Other Provider Active Star t: March 22, 2025 Team Status: Active Member Role Status Wes Castle MD Primary Care Provider Active St art: March 23, 2025 Dr. Fitz Deleon , Emergency Provider Active Start: March 23, 2025 Dr. Milton Muñoz MD Admit Provider Active Start: March 23, 2025 Dr. Milton Muñoz MD Other Provider Active Start: March 23, 2025 Dr. Seth Garnica DO Other Provider Active Start: March 23, 2025 Dr. Bandar Linares MD Other Provider Active Start: March 23, 2025 Dr. Joao Francois MD Other Provider Active Sta rt: March 23, 2025 Dr. Lorraine Grande MD Other Provider Active Start: March 23, 2025 Dr. Lucas Coronado DPM Other Provider Active S tart: March 23, 2025 Dr. Fitz Ryan DO Attending Provider Active Start: March 23, 2025 Dr. Fitz Ryan , DO Other Provider Active Star t: March 23, 2025 Dr. Oswald Bonds MD Other Provider Active Start: March 23, 2025 Dr. Aparna Mabry MD Other Provider Active Star t: March 23, 2025 Team Status: Inactive Member Role Status Dates Donal Castle MD Primary Care Provider Active St art: April 04, 2025 End: April 04, 2025 Donal Castle MD Referring Provider Active Start : April 04, 2025 End: April 04, 2025 TASNEEM Mei Attending Provider Active St art: April 04, 2025 End: April 04, 2025 Team Status: Active Member Role/Relationship Status Wes Castle MD Primary Care Provider Active Team Status: Inactive Member Role/Relationship Status Dates Donal Castle MD Primary Care Provider Active St art: March 12, 2025 End: March 12, 2025 Donal Castle MD Referring Provider Active Start : March 12, 2025 End: March 12, 2025 TASNEEM Mei Attending Provider Active St art: March 12, 2025 End: March 12, 2025 Team Status: Inactive Member Role/Relationship Status Dates Donal Castle MD Primary Care Provider Active St art: March 12, 2025 End: March 12, 2025 TASNEEM Mei Attending Provider Active St art: March 12, 2025 End: March 12, 2025 TASNEEM Mei Referring Provider Active St art: March 12, 2025 End: March 12, 2025 Team Status: Inactive Member Role/Relationship Status Dates Donal Castle MD Primary Care Provider Active St art: March 13, 2025 End: March 23, 2025 Dr. Fitz Deleon , Emergency Provider Active Start: March 13, 2025 End: March 23, 2025 Dr. Milton Muñoz MD Admit Provider Active Start: March 13, 2025 End: March 23, 2025 Dr. Milton Muñoz MD Other Provider Active Start: March 13, 2025 End: March 23, 2025 Dr. Seth Garnica DO Other Provider Active Start: March 13, 2025 End: March 23, 2025 Dr. Bandar Linares MD Other Provider Active Start: March 13, 2025 End: March 23, 2025 Dr. Joao Francois MD Other Provider Active Sta rt: March 13, 2025 End: March 23, 2025 Dr. Lorraine Grande MD Other Provider Active Start: March 13, 2025 End: March 23, 2025 Dr. Lucas Coronado , TAVO Other Provider Active S tart: March 13, 2025 End: March 23, 2025 Dr. Fitz Ryan DO Attending Provider Active Start: March 13, 2025 End: March 23, 2025 Dr. Fitz Ryan DO Other Provider Active Star t: March 13, 2025 End: March 23, 2025 Dr. Oswald Bonds MD Other Provider Active Start: March 13, 2025 End: March 23, 2025 Dr. Aparna Mabry MD Other Provider Active Star t: March 13, 2025 End: March 23, 2025 Team Status: Active Member Role/Relationship Status Dates Donal Castle MD Primary Care Provider Active St art: March 13, 2025 Dr. Fitz Deleon DO Emergency Provider Active Start: March 13, 2025 Dr. Milton Muñoz MD Admit Provider Active Start: March 13, 2025 Dr. Milton Muñoz MD Attending Provider Active Start: March 13, 2025 Dr. Milton Muñoz MD Other Provider Active Start: March 13, 2025 Team Status: Active Member Role/Relationship Status Dates Donal Castle MD Primary Care Provider Active St art: March 14, 2025 Dr. Fitz Deleon DO Emergency Provider Active Start: March 14, 2025 Dr. Milton Muñoz MD Admit Provider Active Start: March 14, 2025 Dr. Milton Muñoz MD Other Provider Active Start: March 14, 2025 Dr. Bandar Linares MD Other Provider Active Start: March 14, 2025 Dr. Lorraine Grande MD Other Provider Active Start: March 14, 2025 Dr. Seth Garnica DO Other Provider Active Start: March 14, 2025 Dr. Ramone Adams MD Attending Provider Active S tart: March 14, 2025 Team Status: Active Member Role/Relationship Status Dates Donal Castle MD Primary Care Provider Active St art: March 14, 2025 Dr. Fitz Deleon DO Emergency Provider Active Start: March 14, 2025 Dr. Milton Muñoz MD Admit Provider Active Start: March 14, 2025 Dr. Milton Muñoz MD Other Provider Active Start: March 14, 2025 Dr. Bandar Linares MD Other Provider Active Start: March 14, 2025 Dr. Lorraine Grande MD Other Provider Active Start: March 14, 2025 Dr. Seth Garnica DO Attending Provider Active Start: March 14, 2025 Dr. Seth Garnica DO Other Provider Active Start: March 14, 2025 Team Status: Active Member Role/Relationship Status Dates Donal Castle MD Primary Care Provider Active St art: March 15, 2025 Dr. Fitz Deleon DO Emergency Provider Active Start: March 15, 2025 Dr. Milton Muñoz MD Admit Provider Active Start: March 15, 2025 Dr. Milton Muñoz MD Other Provider Active Start: March 15, 2025 Dr. Bandar Linares MD Other Provider Active Start: March 15, 2025 Dr. Lorraine Grande MD Other Provider Active Start: March 15, 2025 Dr. Seth Garnica DO Attending Provider Active Start: March 15, 2025 Dr. Seth Garnica DO Other Provider Active Start: March 15, 2025 Dr. Joao Francois MD Other Provider Active Sta rt: March 15, 2025 Team Status: Active Member Role/Relationship Status Dates Donal Castle MD Primary Care Provider Active St art: March 15, 2025 Dr. Fitz Deleon DO Emergency Provider Active Start: March 15, 2025 Dr. Milton Muñoz MD Admit Provider Active Start: March 15, 2025 Dr. Milton Muñoz MD Other Provider Active Start: March 15, 2025 Dr. Bandar Linares MD Other Provider Active Start: March 15, 2025 Dr. Lorraine Grande MD Other Provider Active Start: March 15, 2025 Dr. Seth Garnica DO Other Provider Active Start: March 15, 2025 Dr. Joao Francois MD Attending Provider Active Start: March 15, 2025 Dr. Joao Francois MD Other Provider Active Sta rt: March 15, 2025 Dr. Fitz Ryan DO Referring Provider Active Start: March 15, 2025 Team Status: Active Member Role/Relationship Status Dates Donal Castle MD Primary Care Provider Active St art: March 16, 2025 Dr. Fitz Deleon , DO Emergency Provider Active Start: March 16, 2025 Dr. Milton Muñoz MD Admit Provider Active Start: March 16, 2025 Dr. Milton Muñoz MD Other Provider Active Start: March 16, 2025 Dr. Bandar Linares MD Other Provider Active Start: March 16, 2025 Dr. Lorraine Grande MD Other Provider Active Start: March 16, 2025 Dr. Seth Garnica DO Attending Provider Active Start: March 16, 2025 Dr. Seth Garnica DO Other Provider Active Start: March 16, 2025 Dr. Joao Francois MD Other Provider Active Sta rt: March 16, 2025 Dr. Lucas Coronado DPM Other Provider Active S tart: March 16, 2025 Team Status: Active Member Role/Relationship Status Dates Donal Castle MD Primary Care Provider Active St art: March 16, 2025 Dr. Fitz Deleon DO Emergency Provider Active Start: March 16, 2025 Dr. Milton Muñoz MD Admit Provider Active Start: March 16, 2025 Dr. Milton Muñoz MD Other Provider Active Start: March 16, 2025 Dr. Bandar Linraes MD Other Provider Active Start: March 16, 2025 Dr. Lorraine Grande MD Other Provider Active Start: March 16, 2025 Dr. Seth Garnica DO Other Provider Active Start: March 16, 2025 Dr. Joao Francois MD Attending Provider Active Start: March 16, 2025 Dr. Joao Francois MD Other Provider Active Sta rt: March 16, 2025 Dr. Lucas Coronado DPM Other Provider Active S tart: March 16, 2025 Team Status: Active Member Role/Relationship Status Dates Donal Castle MD Primary Care Provider Active St art: March 16, 2025 Dr. Fitz Velazquez MD Attending Provider Active S tart: March 16, 2025 Dr. Lucas Coronado DPM Referring Provider Active Start: March 16, 2025 Team Status: Active Member Role/Relationship Status Dates Donal Castle MD Primary Care Provider Active St art: March 17, 2025 Dr. Fitz Deleon DO Emergency Provider Active Start: March 17, 2025 Dr. Milton Muñoz MD Admit Provider Active Start: March 17, 2025 Dr. Milton Muñoz MD Other Provider Active Start: March 17, 2025 Dr. Bandar Linares MD Other Provider Active Start: March 17, 2025 Dr. Lorraine Grande MD Other Provider Active Start: March 17, 2025 Dr. Seth Garnica DO Other Provider Active Start: March 17, 2025 Dr. Joao Francois MD Other Provider Active Sta rt: March 17, 2025 Dr. Lucas Coronado DPM Other Provider Active S tart: March 17, 2025 Dr. Antonio Perdomo MD Attending Provider Active Start: March 17, 2025 Team Status: Active Member Role/Relationship Status Dates Donal Castle MD Primary Care Provider Active St art: March 17, 2025 Dr. Fitz Deleon DO Emergency Provider Active Start: March 17, 2025 Dr. Milton Muñoz MD Admit Provider Active Start: March 17, 2025 Dr. Milton Muñoz MD Other Provider Active Start: March 17, 2025 Dr. Bandar Linares MD Other Provider Active Start: March 17, 2025 Dr. Lorraine Grande MD Other Provider Active Start: March 17, 2025 Dr. Seth Garnica DO Attending Provider Active Start: March 17, 2025 Dr. Seth Garnica DO Other Provider Active Start: March 17, 2025 Dr. Joao Francois MD Other Provider Active Sta rt: March 17, 2025 Dr. Lucas Coronado DPM Other Provider Active S tart: March 17, 2025 Team Status: Active Member Role/Relationship Status Dates Donal Castle MD Primary Care Provider Active St art: March 18, 2025 Dr. Fitz Deleon DO Emergency Provider Active Start: March 18, 2025 Dr. Milton Muñoz MD Admit Provider Active Start: March 18, 2025 Dr. Miltno Muñoz MD Other Provider Active Start: March 18, 2025 Dr. Bandar Linares MD Other Provider Active Start: March 18, 2025 Dr. Lorraine Grande MD Other Provider Active Start: March 18, 2025 Dr. Seth Garnica , Attending Provider Active Start: March 18, 2025 Dr. Seth Garnica , DO Other Provider Active Start: March 18, 2025 Dr. Joao Francois MD Other Provider Active Sta rt: March 18, 2025 Dr. Lucas Coronado DPM Other Provider Active S tart: March 18, 2025 Team Status: Active Member Role/Relationship Status Dates Donal Castle MD Primary Care Provider Active St art: March 19, 2025 Dr. Fitz Deleon , DO Emergency Provider Active Start: March 19, 2025 Dr. Milton Muñoz MD Admit Provider Active Start: March 19, 2025 Dr. Milton Muñoz MD Other Provider Active Start: March 19, 2025 Dr. Bandar Linares MD Other Provider Active Start: March 19, 2025 Dr. Lorraine Grande MD Other Provider Active Start: March 19, 2025 Dr. Joao Francois MD Other Provider Active Sta rt: March 19, 2025 Dr. Lucas Coronado DPM Other Provider Active S tart: March 19, 2025 Dr. Fitz Ryan DO Attending Provider Active Start: March 19, 2025 Dr. Fitz Ryan , DO Other Provider Active Star t: March 19, 2025 Dr. Seth Garnica DO Other Provider Active Start: March 19, 2025 Team Status: Active Member Role/Relationship Status Dates Donal Castle MD Primary Care Provider Active St art: March 20, 2025 Dr. Fitz Deleon DO Emergency Provider Active Start: March 20, 2025 Dr. Milton Muñoz MD Admit Provider Active Start: March 20, 2025 Dr. Milton Muñoz MD Other Provider Active Start: March 20, 2025 Dr. Seth Garnica , DO Other Provider Active Start: March 20, 2025 Dr. Bandar Linares MD Other Provider Active Start: March 20, 2025 Dr. Joao Francois MD Other Provider Active Sta rt: March 20, 2025 Dr. Lorraine Grande MD Other Provider Active Start: March 20, 2025 Dr. Lucas Coronado DPM Other Provider Active S tart: March 20, 2025 Dr. Aparna Mabry MD Attending Provider Active Start: March 20, 2025 Dr. Aparna Mabry MD Other Provider Active Star t: March 20, 2025 Dr. Fitz Ryan DO Other Provider Active Star t: March 20, 2025 Dr. Oswald Bonds MD Other Provider Active Start: March 20, 2025 Team Status: Active Member Role/Relationship Status Dates Donal Castle MD Primary Care Provider Active St art: March 21, 2025 Dr. Fitz Deleon , Emergency Provider Active Start: March 21, 2025 Dr. Milton Muñoz MD Admit Provider Active Start: March 21, 2025 Dr. Milton Muñoz MD Other Provider Active Start: March 21, 2025 Dr. Seth Garnica DO Other Provider Active Start: March 21, 2025 Dr. Bandar Linares MD Other Provider Active Start: March 21, 2025 Dr. Joao Francois MD Other Provider Active Sta rt: March 21, 2025 Dr. Lorraine Grande MD Other Provider Active Start: March 21, 2025 Dr. Lucas Coronado DPM Other Provider Active S tart: March 21, 2025 Dr. Fitz Ryan DO Attending Provider Active Start: March 21, 2025 Dr. Fitz Ryan DO Other Provider Active Star t: March 21, 2025 Dr. Oswald Bonds MD Other Provider Active Start: March 21, 2025 Dr. Aparna Mabry MD Other Provider Active Star t: March 21, 2025 Team Status: Active Member Role/Relationship Status Dates Donal Castle MD Primary Care Provider Active St art: March 22, 2025 Dr. Fitz Deleon DO Emergency Provider Active Start: March 22, 2025 Dr. Milton Muñoz MD Admit Provider Active Start: March 22, 2025 Dr. Milton Muñoz MD Other Provider Active Start: March 22, 2025 Dr. Seth Garnica DO Other Provider Active Start: March 22, 2025 Dr. Bandar Linares MD Other Provider Active Start: March 22, 2025 Dr. Joao Francois MD Other Provider Active Sta rt: March 22, 2025 Dr. Lorraine Grande MD Other Provider Active Start: March 22, 2025 Dr. Lucas Coronado DPM Other Provider Active S tart: March 22, 2025 Dr. Fitz Ryan DO Attending Provider Active Start: March 22, 2025 Dr. Fitz Ryan DO Other Provider Active Star t: March 22, 2025 Dr. Oswald Bonds MD Other Provider Active Start: March 22, 2025 Dr. Aparna Mabry MD Other Provider Active Star t: March 22, 2025 Team Status: Active Member Role/Relationship Status Dates Donal Castle MD Primary Care Provider Active St art: March 23, 2025 Dr. Fitz Deleon , Emergency Provider Active Start: March 23, 2025 Dr. Milton Muñoz MD Admit Provider Active Start: March 23, 2025 Dr. Milton Muñoz MD Other Provider Active Start: March 23, 2025 Dr. Seth Garnica DO Other Provider Active Start: March 23, 2025 Dr. Bandar Linares MD Other Provider Active Start: March 23, 2025 Dr. Joao Francois MD Other Provider Active Sta rt: March 23, 2025 Dr. Lorraine Grande MD Other Provider Active Start: March 23, 2025 Dr. Lucas Coronado DPM Other Provider Active S tart: March 23, 2025 Dr. Fitz Ryan DO Attending Provider Active Start: March 23, 2025 Dr. Fitz Ryan DO Other Provider Active Star t: March 23, 2025 Dr. Oswald Bonds MD Other Provider Active Start: March 23, 2025 Dr. Aparna Mabry MD Other Provider Active Star t: March 23, 2025 Team Status: Inactive Member Role/Relationship Status Dates Donal Castle MD Primary Care Provider Active St art: April 04, 2025 End: April 04, 2025 Donal Castle MD Referring Provider Active Start : April 04, 2025 End: April 04, 2025 TASNEEM Mei Attending Provider Active St art: April 04, 2025 End: April 04, 2025 Team Status: Inactive Member Role/Relationship Status Dates Donal Castle MD Primary Care Provider Active St art: May 16, 2025 End: May 16, 2025 Donal Castle MD Referring Provider Active Start : May 16, 2025 End: May 16, 2025 TASNEEM Mei Attending Provider Active St art: May 16, 2025 End: May 16, 2025 Team Status: Inactive Member Role/Relationship Status Dates Donal Castle MD Primary Care Provider Active St art: May 16, 2025 End: May 16, 2025 TASNEEM Mei Attending Provider Active St art: May 16, 2025 End: May 16, 2025 TASNEEM Mei Referring Provider Active St art: May 16, 2025 End: May 16, 2025 Team Status: Active Member Role/Relationship Status Dates Donal Castle MD Primary Care Provider Active St art: May 21, 2025 Donal Castle MD Attending Provider Active Start : May 21, 2025 Donal Castle MD Referring Provider Active Start : May 21, 2025 Team Status: Inactive Member Role/Relationship Status Dates Donal Castle MD Primary Care Provider Active St art: May 21, 2025 End: May 21, 2025 Donal Castle MD Attending Provider Active Start : May 21, 2025 End: May 21, 2025 Donal Castle MD Referring Provider Active Start : May 21, 2025 End: May 21, 2025 [employer] Second Operator Relationship Specialty Start Date End Donal Castle MD [address] [facility] [address] [place] [address] PCP - General Internal Medicine 10/13/23 Yasmeen López MD Primary Staff Physician Cardiology 01/31/19 Sarah Reilly II OD [address] [place] [address] Referring Optometry 10/01/23 Scheduled Active and Recently Administ ered Medications (unrecognized section and content) Medication Order 08/24/2023 08/25/2023 08/26/2023 ketorolac (Acular) 0.5 % ophthalmic solution 1 drop (COMPLETED) 1 drop, Left Eye, Every 5 min, First dose on Janneth 08/26/23 at 1100, For 4 doses, Preprocedure 1105 (Given - Provid er: Janene Walton RN)1117 (Given - Provider: Janene Walton RN)1127 (Given - Provider: Janene Walton RN)1136 (Given - Provider: Janene Walton RN) lubricating eye drops ophthalmic solution 1 drop (COMPLETED) 1 drop, Left Eye, Every 5 min, First dose on Janneth 08/26/23 at 1100, For 4 doses, Preprocedure 1105 (Given - Provid er: Janene Walton RN)1117 (Given - Provider: Janene Walton RN)1128 (Given - Provider: Janene Walton RN)1135 (Given - Provider: Janene Walton RN) midazolam (Versed) injection 1 mg (COMPLETED) 1 mg, intravenous, Once, On Janneth 08/26/23 at 1100, For 1 dose, Preprocedure 1100 (Given - Provid er: Janene Walton RN - Comment: 1 mg wasted from syringe w/ Obinna Garcia RN. 1 mg given) ondansetron (Zofran) injection 4 mg (COMPLETED) 4 mg, intravenous, Once, On Janneth 08/26/23 at 1100, For 1 dose, Preprocedure, When administering via IV Push, administer over 3-5 minutes. 1137 (Given - Provid er: Janene Walton RN) phenylephrine-tropicamide 10 %-1 % ophthalmic solution 1 drop (COMPLETED) 1 drop, Left Eye, Every 5 min, First dose on Janneth 08/26/23 at 1100, For 4 doses, Preprocedure 1100 (Given - Provid er: Janene Walton RN)1117 (Given - Provider: Janene Walton RN)1127 (Given - Provider: Janene Walton RN)1135 (Given - Provider: Janene Walton RN) povidone-iodine 5 % ophthalmic solution 1 Application (COMPLETED) 1 Application, Left Eye, Once, On Janneth 08/26/23 at 1100, For 1 dose, Preprocedure 1059 (Given - Provid er: Janene Walton RN) tetracaine (Altacaine) 0.5 % ophthalmic solution 1 drop (COMPLETED) 1 drop, Left Eye, Once, On Janneth 08/26/23 at 1100, For 1 dose, Preprocedure 1105 (Given - Provid er: Janene Walton RN) Continuous Medication Order 08/24/2023 08/25/2023 08/26/2023 lactated Ringer's infusion (CANCELED) 75 mL/hr, intravenous, Continuous, Starting on Janneth 08/26/23 at 1100, Preprocedure 1137 (New Bag - Prov ider: Janene Walton RN)1228 (Continued by Anesthesia - Provider: Kenan Ralph MD)1251 (Due: Stopped - Provider: Kenan Ralph MD) PRN Medication Order 08/24/2023 08/25/2023 08/26/2023 chondroitin sulf-sod hyaluron (Duovisc) intraocular kit (CANCELED) As needed, Starting on Janneth 08/26/23 at 1236, Intraprocedure 1236 (Given - Provid er: Ivan Baxter MD) lidocaine 1%-phenylephrine 1.5% intravitreal injection (CANCELED) As needed, Starting on Janneth 08/26/23 at 1236, Intraprocedure 1236 (Given - Provid er: Ivan Baxter MD) moxifloxacin (Vigamox) 0.5 % ophthalmic solution (CANCELED) As needed, Starting on Janneth 08/26/23 at 1238, Intraprocedure 1238 (Given - Provid er: Ivan Baxter MD - Comment: intracameral) Scheduled Medication Order 09/28/2023 09/29/2023 09/30/2023 ketorolac (Acular) 0.5 % ophthalmic solution 1 drop (COMPLETED) 1 drop, Right Eye, Every 5 min, First dose on Janneth 09/30/23 at 0845, For 4 doses, Preprocedure 0857 (Given - Provid er: Mary Kate Ramos RN)0900 (Given - Provider: Mary Kate Ramos RN)0905 (Given - Provider: Mary Kate Ramos RN)0906 (Given - Provider: Mary Kate Ramos RN) lidocaine 1%-phenylephrine 1.5% intravitreal injection 2 mL 2 mL, intravitreal, Once, On Janneth 09/30/23 at 1030, For 1 dose, Intraprocedure 1030 (Due) lubricating eye drops ophthalmic solution 1 drop 1 drop, Right Eye, Every 5 min, First dose on Janneth 09/30/23 at 0845, For 4 doses, Preprocedure 0858 (Given - Provid er: Mary Kate Ramos RN)0900 (Due)0907 (Given - Provider: Mary Kate Ramos RN)0914 (Given - Provider: Mary Kate Ramos RN) midazolam (Versed) injection 1 mg (COMPLETED) 1 mg, intravenous, Once, On Janneth 09/30/23 at 0845, For 1 dose, Preprocedure 0941 (Given - Provid er: Mary Kate Ramos RN) moxifloxacin (Vigamox) 1.5 mg/1 mL (0.15%) injection 1.5 mg 1.5 mg, Right Eye, Once, On Janneth 09/30/23 at 1030, For 1 dose, Intraprocedure 1030 (Due) ondansetron (Zofran) injection 4 mg (COMPLETED) 4 mg, intravenous, Once, On Janneth 09/30/23 at 0845, For 1 dose, Preprocedure, When administering via IV Push, administer over 3-5 minutes. 0905 (Given - Provid er: Mary Kate Ramos RN) phenylephrine-tropicamide 10 %-1 % ophthalmic solution 1 drop (COMPLETED) 1 drop, Right Eye, Every 5 min, First dose on Janneth 09/30/23 at 0845, For 4 doses, Preprocedure 0845 (Given - Provid er: Mary Kate Ramos RN)0850 (Given - Provider: Mary Kate Ramos RN)0855 (Given - Provider: Mary Kate Ramos RN)0900 (Given - Provider: Mary Kate Ramos RN) povidone-iodine 5 % ophthalmic solution (COMPLETED) Right Eye, Once, On Janneth 09/30/23 at 0845, For 1 dose, Preprocedure 0856 (Given - Provid er: Mary Kate Ramos RN) prednisoLONE acetate (Pred-Forte) 1 % ophthalmic suspension 1 drop 1 drop, Right Eye, Once, On Janneth 09/30/23 at 1030, For 1 dose, Intraprocedure 1030 (Due) tetracaine (Altacaine) 0.5 % ophthalmic solution 1 drop (COMPLETED) 1 drop, Right Eye, Once, On Janneth 09/30/23 at 0845, For 1 dose, Preprocedure 0856 (Given - Provid er: Mary Kate Ramos RN) Continuous Medication Order 09/28/2023 09/29/2023 09/30/2023 lactated Ringer's infusion 50 mL/hr, intravenous, Continuous, Starting on Janneth 09/30/23 at 0845 0908 (Incomplete - P rovider: Mary Kate Ramos RN)1000 (Continued by Anesthesia - Provider: Girish Najera DO)1020 (New Bag - Provider: Girish Najera DO) Goals (unrecognized section and content) Goals may be documented in a n alternate sectionGoals may be documented in an alternate section FOR RECORDS PERTAINING TO PATIENTS WHO ARE OR HAVE BEEN ENROLLED IN A CHEMICAL DEPENDENCY/SUBSTANCEABUSE PROGRAM, SOME INFORMATION MAY BE OMITTED. This clinical summary was aggregated from multiple sources. Caution should be exercised in using it in the provision of clinical care. This summary normalizes information from multiple sources, and as a consequence, information in this document may materially change the coding, format and clinical context of patient data. In addition, data may be omitted in some cases. CLINICAL DECISIONS SHOULD BE BASED ON THE PRIMARY CLINICAL RECORDS. [employer] [facility]. provides no warranty or guarantee of the accuracy or completeness of information in this document.
--- NOTE | 2025-06-25 01:30 | CT_ITS ---
PROCEDURE: ABDOMEN/PELVIS WITHOUT CONT 06/25/2025 REASON FOR EXAM: PAIN TECHNIQUE: ABDOMEN/PELVIS WITHOUT CONT Noncontrast technique limits evaluation of the abdominal and pelvic viscera. Coronal and Sagittal reconstruction series were provided. One or more dose reduction techniques were used (e.g., Automated exposure control, adjustment of the mA and/or kV according to patient size, use of iterative reconstruction technique). RADIATION DOSE SUMMARY: CTDlvol: 33 mGy DLP: 1321 mGycm COMPARISON: No FINDINGS: Moderate right effusion, adjacent compressive atelectasis. Under aerated left lung base. Cardiac enlargement. Cirrhotic liver morphology. Status post cholecystectomy. Normal pancreas, spleen, adrenal glands, kidneys. Hydronephrosis. Decompressed bladder. Status post hysterectomy. Presacral edema. No retroperitoneal or pelvic adenopathy. No free air. Small ascites. Nonobstructed bowel. Normal appendix. Diverticulosis. No acute large bowel findings. Status post right THR. Lumbar spine degeneration. Abdominal wall edema. Pelvic floor laxity. Transitional anatomy. At the lumbosacral junction, there is a chronic appearing vertebral body compression deformity. CT/Abdomen/Pelvis without Cont IMPRESSION: Possible third-spacing. Reading Location: [place] [id number]
[2025-06-25] MEDS: 0.9% Normal Saline (1000mL) 1,000 ML 1000 ML IV (01:49)
[2025-06-25 01:52] LABS: Troponin T High Sensitivity 97 ng/L (<=14)
[2025-06-25 01:53] LABS: FI02 2.0; SITE Not entered; VBG BASE EXCESS 5 mmol/L (-1.0-3.5); VBG PO2 26 mmHg (25-40); VBG SO2 43 % (50-70); VBG TCO2 32 mmol/L (23-33)
[2025-06-25] MEDS: Ceftriaxone 2 GM in 0.9% Normal Saline (50mL MB+) 50 ML IV (02:05)
--- NOTE | 2025-06-25 02:55 | PCM.HP.STD ---
HPI - General General Date of Admission: 06/25/25 Date of Service: 06/25/25 Chief Complaint: Fall, closed head trauma, transient LOC. HPI Narrative The patient is a 75 y/o F w/ PMHx: HFrEF with most recent EF 30% with moderate to severe global hypokinesis LV 12/12/2024 with from most recent cardiology note 05/16/2025 plan follow-up echocardiogram in 6 to 8 weeks and if not improving likely EP referral, Valvular heart disease with aortic valvular stenosis, HTN, HLD, ESRD on dialysis T//Wed, Diabetes mellitus type II, Hypothyroidism, Morbid obesity who presents to the [facility] ED on 06/25/2025 with history of being found by her spouse on the bathroom floor and noted that she had fallen off the toilet and hit her head with loss of consciousness for approximately 3 minutes with no recent acute concerns or events with last dialysis the day prior on Wednesday prompting EMS call. Patient and spouse note that she has recently started to have low BP with HD the last several sessions. Also, notes when he was assisting her after she recently fell she was initially confused but is back to her mental status baseline. She denies any chest pain, dyspnea, palpitations. She does note decreased UOP over the last several days. Spouse notes she has had decreased oral intake/less appetite since HD started. Workup in the ED included T98.3, heart 94, BP 115/93, respiratory rate 26 initially 81% on room air with improvement to 92% on 2 L nasal cannula with most recent repeat vital sign assessment T98.3, heart rate 84, BP 107/83, respiratory rate 25, 92% on 2 L nasal cannula however patient did have transient decrease in blood pressure down to 84/60 while in the ED, CBC with WC 20.7, hemoglobin 12.2, platelet 225 with left shift and lymphopenia, VBG with pH 7.36, PO226, bicarb 31, O2 saturation 43%, CMP with chloride 91, anion gap 18, BUN/creatinine 55/5.40, GFR 8, glucose 232, magnesium 2.2, hepatic profile with total bilirubin 1.0, AST/ALT 66/53, alk phos 231, troponin initial 97 however patient is chronically elevated and last noted 03/13/2025 was 159, CT brain with no acute intracranial findings, CT cervical spine with no acute cervical injury, chest CTPA with moderate right effusion with adjacent lung compression with no evidence of any infection, embolism or dissection, CT abdomen and pelvis with presacral edema/abdominal wall edema potentially possible third spacing otherwise no acute intra-abdominal findings, blood culture x 2 pending per ED, rapid SARS COVID/influenza/RSV pending per ED, Lactic acid pending per ED, urinalysis/urine culture pending per ED, EKG in the ED with new onset concern for atrial fibrillation rate controlled with no acute evidence of ischemia. In the ED patient ministered 1 L normal saline, azithromycin 500 mg IV x 1, Rocephin 2 g IV x 1 given there was initial concern for possible pulmonary infection however this was not apparent once imaging was resulted. [facility] Medical History Aortic valve stenosis Congestive heart failure Hypertension Type 2 diabetes mellitus with diabetic polyneuropathy Pulmonary hypertension LV dysfunction MRSA (methicillin resistant staph aureus) culture positive Hypothyroidism Osteoporosis Morbid obesity with BMI of 45.0-49.9, adult Wears glasses Post-menopausal Thyroid disease Diabetes Uses wheelchair Ambulates with cane Arthritis High cholesterol Back pain TIA (transient ischemic attack) Dietary restriction Non-smoker History of pain when walking History of transesophageal echocardiography (DESTIN) Cardiology follow-up encounter Diabetes Home Medications ?Medication ?Instructions ?Recorded ?Last Taken ?Type atorvastatin 10 mg tablet 10 mg PO QHS cholesterol 08/31/22 03/12/25 History aspirin 81 mg chewable tablet 81 mg PO DAILYCM 90 days #90 tabs 10/21/24 03/13/25 Rx carvedilol 6.25 mg tablet (Coreg) 6.25 mg PO BID #60 tabs 12/01/24 03/13/25 Rx furosemide 40 mg tablet 40 mg PO QAM #30 tabs 03/12/25 03/13/25 Rx levothyroxine 100 mcg tablet 112 mcg PO DAILY thyroid 04/04/25 Unknown History (Synthroid) hydralazine 25 mg tablet 25 mg PO TID #270 tabs 05/25/25 Unknown Rx isosorbide dinitrate 20 mg tablet 20 mg PO TID #270 tabs 05/25/25 Unknown Rx Allergy/AdvReac Type Severity Reaction Status Date / Time No Known Allergies Allergy Verified 06/24/25 23:47 Family History Mother Hypertension Father Heart disease Surgical History Hx of colonoscopy Hx of cholecystectomy H/O: hysterectomy Social History household members: spouse Smoking Status: Never smoker alcohol intake: never substance use type: does not use caffeine: No ROS ROS Narrative Admission Review of Systems: CONSTITUTIONAL: No weight loss, fever, chills, + weakness or fatigue. HEENT: Eyes: No visual loss, blurred vision, double vision or yellow sclerae. Ears, Nose, Throat: No hearing loss, sneezing, congestion, runny nose or sore throat. SKIN: No rash or itching, lesions, wounds except BL LE scars/occasional stage ecchymoses, abrasions. CARDIOVASCULAR: + Fell off the toilet with LOC following hitting head, questionable syncope, + chronic distal edema. No chest pain, chest pressure or chest discomfort, palpitations, orthopnea. RESPIRATORY: No shortness of breath, cough or sputum, wheezing, hemoptysis. GASTROINTESTINAL: No anorexia, nausea, vomiting or diarrhea, abdominal pain, melena, BRBPR. GENITOURINARY: No dysuria, frequency, urgency or retention. NEUROLOGICAL: + Fell off toilet with LOC following hitting head, transient confusion, questionable syncope, recent frequent falls. No dizziness, syncope, paralysis, ataxia, numbness or tingling in the extremities, focal weakness, change in bowel or bladder control, seizure. MUSCULOSKELETAL: + muscle, back pain, joint pain or stiffness. HEMATOLOGIC: + Chronic anemia, no specific easy history of bleeding/bruising.+ LYMPHATICS: No enlarged nodes. No history of splenectomy. PSYCHIATRIC: No history of depression or anxiety. ENDOCRINOLOGIC: No reports of sweating, cold or heat intolerance. No polyuria or polydipsia. ALLERGIES: No history of asthma, hives, eczema or rhinitis. Vital Signs Vital Signs Vital Signs: 06/24/25 23:47 06/24/25 23:47 06/24/25 23:47 Temperature 98.3 F Temperature Source Oral Pulse Rate 94 Respiratory Rate 26 H Respiratory Effort Short of Breath Accessory Muscle Use Respiratory Pattern Tachypnea Blood Pressure 115/93 H Blood Pressure Mean 100 Pulse Ox 81 92 Oxygen Delivery Method Room Air Nasal Cannula Oxygen Flow Rate (L/min) 2 06/24/25 23:54 06/25/25 00:54 06/25/25 00:54 Temperature 98.3 F 98.3 F Temperature Source Oral Oral Pulse Rate 94 94 Respiratory Rate 22 H 23 H Respiratory Effort Respiratory Pattern Blood Pressure 115/93 H 158/106 H Blood Pressure Mean 100 123 Pulse Ox 92 94 Oxygen Delivery Method Nasal Cannula Nasal Cannula Nasal Cannula Oxygen Flow Rate (L/min) 2 2 06/25/25 01:00 06/25/25 01:37 06/25/25 01:51 Temperature 98.3 F Temperature Source Oral Pulse Rate 94 Respiratory Rate 23 H Respiratory Effort Respiratory Pattern Blood Pressure 158/106 H 85/52 L 97/85 H Blood Pressure Mean 123 63 89 Pulse Ox 94 Oxygen Delivery Method Nasal Cannula Oxygen Flow Rate (L/min) 2 06/25/25 02:00 06/25/25 02:18 Temperature 98.3 F Temperature Source Oral Pulse Rate 84 Respiratory Rate 25 H Respiratory Effort Respiratory Pattern Blood Pressure 84/60 L 107/83 H Blood Pressure Mean 68 91 Pulse Ox 92 Oxygen Delivery Method Nasal Cannula Oxygen Flow Rate (L/min) 2 Weight Weight: 216 lb 0.848 oz Body Mass Index (BMI) 43.6 Physical Exam Narrative Physical Examination: General: Awake, alert, oriented to self, place, month, year, did have transient confusion with recent fall but this seems completely resolved per discussion with patient and spouse, remains cooperative, laying in ED bed, very tired. Skin: Normal color, normal turgor, no icterus, no cyanosis except occasional stage ecchymoses, abrasion, scars to bilateral lower anterior shins in addition to notable fold/groin intertrigo. HEENT: AT/NC, EOMI, PERRLA, mildly dry MM, no carotid bruits, difficult to discern JVD given thickened neck. Lungs: Diminished, greater bases, right greater than left, no evidence of any distress, no significantly appreciated rales, ronchi or wheezing. Heart: Irregular, rate controlled; no gallop, rub audible. Abdomen: Soft, morbidly obese, NTTP, no suprapubic tenderness, distant BS, difficult to discern distention and HSM given habitus. Extremities: No cyanosis, no clubbing, see skin, pedal to mid mendoza 1-2+ pitting edema, chronic. Neurological: Patient awake, alert, oriented as noted, cognitive function intact; pupils equally reactive to light and accommodation, cranial nerves grossly normal, moving all 4 extremities, no focal deficits, strength moderately to severely globally decreased. Psychiatric: Affect appears fatigued, no acute evidence of depressive or anxiety feelings. Results Lab / Micro Data 06/25/25 00:49 06/25/25 00:49 Labs: Laboratory Results - last 24 hr 06/25/25 00:49: WBC 20.7 H, RBC 4.21, Hgb 12.2, Hct 38.9, MCV 92.4, MCH 29.0, MCHC 31.4 L, RDW Std Deviation 54.7 H, RDW Coeff of Leif 16.6 H, Plt Count 225, MPV 10.4, Immature Gran % (Auto) 0.900, Neut % (Auto) 90.9 H, Lymph % (Auto) 2.8 L, [place] % (Auto) 5.2, Eos % (Auto) 0.0, Baso % (Auto) 0.2, Absolute Neuts (auto) 18.8 H, Absolute Lymphs (auto) 0.58 L, Nucleated RBC % 0.4, Sodium 134, Potassium 4.1, Chloride 91 L, Carbon Dioxide 25.0, Anion Gap 18 H, BUN 55 H, Creatinine 5.40 H, Estim Creat Clear Calc 9.45 L*, Est GFR (MDRD) Non-Af 8 L, BUN/Creatinine Ratio 10.2, Glucose 232 H, Calcium 8.6, Magnesium 2.2, Total Bilirubin 1.00, AST 66 H, ALT 53 H, Alkaline Phosphatase 231 H, Troponin T High Sens 97 H* D, Total Protein 6.6, Albumin 3.7, Globulin 2.9, Albumin/Globulin Ratio 1.3 06/25/25 01:43: Lactic Acid 2.8 H* ABG Data ABG results: ABG 06/25/25 01:49 Specimen Type STEFANI Sample Site Not entered O2 % 2.0 VBG pH 7.36 VBG pO2 26 VBG HCO3 31 H VBG Total CO2 32 VBG O2 Sat (Calc) 43 L VBG Base Excess 5 H POC Mix VBG pCO2 Pt Tmp 54.8 H O2 Delivery Device Cannula Imaging Radiology Impression Brain CT 06/25/25 00:44 IMPRESSION: No acute intracranial findings Reading Location: [facility] 06/25/25 00:44 IMPRESSION: No acute cervical spine injury. Reading Location: [facility] Chest CTA 06/25/25 00:44 IMPRESSION: Moderate right effusion, adjacent lung compression. No embolism, dissection, or pneumonia. Reading Location: [facility] Abdomen/Pelvis CT 06/25/25 01:30 IMPRESSION: Possible third-spacing. Reading Location: [facility] Assessment & Plan Assessment/Plan (1) Fall: (2) PAF (paroxysmal atrial fibrillation): PLAN: Plan The patient is a 75 y/o F w/ PMHx: HFrEF with most recent EF 30% with moderate to severe global hypokinesis LV 12/12/2024 with from most recent cardiology note 05/16/2025 plan follow-up echocardiogram in 6 to 8 weeks and if not improving likely EP referral, Valvular heart disease with aortic valvular stenosis, HTN, HLD, ESRD on dialysis T//Wed, Diabetes mellitus type II, Hypothyroidism, Morbid obesity who presents to the [facility] ED on 06/25/2025 with history of being found by her spouse on the bathroom floor and noted that she had fallen off the toilet and hit her head with loss of consciousness for approximately 3 minutes with no recent acute concerns or events with last dialysis the day prior on Wednesday prompting EMS call. #1. Mechanical fall with LOC with associated closed head trauma, questionable possible syncopal event, unclear, with incidentally noted leukocytosis of unclear etiology with elevated cardiac enzyme of unclear significance however chronic with hypoxia of unclear significance with new onset rate controlled atrial fibrillation: EKG in ED with AF rate controlled with no acute evidence of ischemia, Chest CTPA with moderate right effusion with adjacent lung compression however no evidence of any embolism, dissection or pneumonia, CT brain with no acute findings, CT cervical spine with no acute osseous concerns, CT abdomen pelvis with potential third spacing but no acute intra-abdominal findings, orthostatics unremarkable, initial trop 97 however chronically elevated per previous trend. Will admit to PCU be cautious, place on a monitored bed to assure no acute myocardial infarction with serial cardiac enzymes and EKGs. TSH, magnesium and phosphorus levels requested. Noted intention for upcoming echocardiogram in the next 2 weeks however given this current presentation be cautious given last echocardiogram was 11/2024 will request. Pending these findings may need to involve cardiology as there was some discussion about EP involvement pending results. Temporarily holding Coreg given low BP upon ED presentation, add beta-ralph back once clinically able given PAF. BPs have been lower since dialysis started especially for the last several sessions per patient/spouse, will add midodrine. Will initiate Eliquis regimen. Will judiciously hydrate and catheterization urinalysis will be requested as well as urine culture. Unfortunately procalcitonin less useful given significant renal disease. Will maintain on fall precautions. Blood culture x 2 pending per ED. PT/OT consulted for discharge planning. #2. HFrEF: Most recent echocardiogram with a EF of 30% with moderate to severe global hypokinesis LV with planned ongoing evaluation with cardiology with repeat echocardiogram in 6 to 8 weeks from the most recent evaluation 05/16/2025 with potential EP referral at that time depending on results, will continue aspirin, statin, temporarily holding Coreg, hydralazine, Lasix, isosorbide given significant hypotension transiently in the ED and now normal low BP, will very judiciously hydrate given his history, resume medications once clinically appropriate. #3. Valvular heart disease: 12/12/2024 echocardiogram with LVEF 30%, moderately dilated LV, PASP 65 mmHg with worsened LV systolic function from prior with unfortunate that time aortic valve not well-visualized however previous echocardiogram with noted aortic valve stenosis. As noted cardiology intention for repeat echocardiogram upcoming however given current presentation be cautious we will obtain echocardiogram. #4. Diabetes mellitus type II: Clarifying medications is not currently listed, last hemoglobin A1c noted 03/16/2025 hemoglobin A1c 5.3%, will maintain on ADA diet, accu checks w/ ISS. #5. Hypertension: Given low BP in the ED will temporally hold hypertensive regimen, add back once clinically appropriate. #6. Hyperlipidemia: Will continue patient on statin therapy. #7. ESRD: Patient with ongoing dialysis Wednesday, , Wednesday, last the Wednesday prior to current presentation, will consult nephrology for ongoing dialysis needs especially given recent contrast usage for imaging in the ED. Patient/spouse noting BPs low over the last several HD sessions, will start midodrine. #8. Chronic normocytic anemia/AOCD: Admission hemoglobin 12.2, MCV 92.4, baseline hemoglobin primarily 10-11 range, continue to trend. #9. Hypothyroidism: Will continue patient home levothyroxine regimen #10. Morbid Obesity: Weight loss and lifestyle changes encouraged. #11. DVT prophylaxis: Initiating on eliquis given new onset PAF as noted #1. #12. CODE status: Patient HCPSHANNAN is her primary and son secondary and living will is currently in place. Discussed CODE status at length including difference between FULL code, DNR-CCA and DNR-CC status. Following discussions about the differences in these status, requested Full Code status. Advanced Care Planning Face to Face Time: 16 minutes. Charges/Coding Visit Charges Inpatient E&M: 70552 Init Hosp L3 Procedures Hospitalists Procedures: 90893 Advncd Care Plan 30 Min
[2025-06-25] MEDS: Azithromycin 500 MG in 0.9% Normal Saline (250mL Bag) 250 ML 255 MG IV (03:12)
[2025-06-25 03:17] LABS: Troponin T High Sens 2 HR 94 ng/L (<=14)
--- OUTSIDE RECORDS SUMMARY | 2025-06-25 03:23 | XMS RPT_ITS | CCD ---
Author Organization [facility] Care Team Providers Care Steel Plate Printer Name Role Phone Dee Dee, Pete N Unavailable Unavailable Dee Dee, Pete N Unavailable Unavailable JIMMY, QARAB CRISTOFER Unavailable Unavailable JIMMY, QARAB CRISTOFER Unavailable Unavailable JIMMY, QARAB CRISTOFER Unavailable Unavailable JIMMY, QARAB CRISTOFER Unavailable Unavailable JIMMY, QARAB CRISTOFER Unavailable Unavailable Girish Simon Admitting Unavailable Girish Simon Attending Unavailable Girish Simon Primary Care Unavailable Jimmy, Qarab H Admitting Unavailable Jimmy, Qarab H Attending Unavailable Girish Simon Primary Care Unavailable Girish Simon Primary Care Provider Jimmy SANTIAGO, Qarab Cristofer Unavailable Girish Simon Unavailable Unavailable Unavailable Girish Simon Primary Care Provider Jimmy SANTIAGO, Qarab Cristofer Unavailable Dr. Girish Simon Primary Care Provider Dr. Girish Simon Referring Provider Dr. Sean Mascorro Attending Provider [phone] Kenan Banuelos Attending Provider Dr. Milton Love Admit Provider Dr. Milton Love Referring Provider [phone] Dr. Milton Love Other Provider Dr. Anai Nixon Attending Provider Dr. Anai Nixon Other Provider Girish Simon Primary Care Provider Jimmy SANTIAGO, Yasmeen Cristofer Unavailable GIRISH SIMON Primary Care Unavailable AVERY ENCINAS Attending Unavailabl e Jimmy SANTIAGO, ra Cristofer Unavailable [place], Dr. Girish Conway Primary Care Unavaila ble Radha, MsVenu Sampson Attending Unavailab le [place], Dr. Girish Conway Primary Care Unavaila ble Radha, MsVenu Sampson Attending Unavailab le [place], Dr. Girish Conway Primary Care Unavaila ble Radha, MsVenu Sampson Attending Unavailab manny Garcia, MsVenu Sampson Attending Unavailab le [place], Dr. Girish Conway Primary [facility] Unavaila ble Radha, MsVenu Sampson Attending Unavailab manny Simon, Dr. Girish Conway Primary [facility] Unavaila ble [place], Dr. Girish Conway Primary [facility] Unavaila ble Radha, MsVenu Sampson Attending Unavailab manny Garcia, MsVenu Sampson Attending Unavailab le [place], Dr. Girish Conway Primary [facility] Unavaila ble [place], Dr. Girish Conway Primary [facility] Unavaila ble Radha, MsVenu Sampson Attending Unavailab le [place], Dr. Girish Conway Primary [facility] Unavaila ble Radha, MsVenu Sampson Attending Unavailab le [place], Dr. Girish Conway Primary [facility] Unavaila ble Radha, MsVenu Sampson Attending Unavailab manny Simon, Dr. Girish Conway Primary Care Unavaila ble Radha, MsVenu Sampson Attending Unavailab manny Garcia, MsVenu Sampson Attending Unavailab le [place], Dr. Girish Conway Primary [facility] Unavaila ble [place], Dr. Girish Conway Primary [...] Provider Suman SANTIAGO, Donal Primary Care Provider [phone] Suman SANTIAGO, Donal Primary Care Provider Dr. Kenan White MD Attending Provider [phone] Dr. Kenan White MD Referring Provider Dr. Lucas Cui DO Emergency Provider [phone] Campos DO, Dr. Street Admit Provider Unavail [...] Hong SANTIAGO, Dr. Estrada Other Provider Fatou [employer], Man Pierson Other Provider Jud BOATENG, Janene [...] Provider Krys SANTIAGO, Dr. Montenegro Other Provider [phone] Shefali SANTIAGO, Dr. Vega Other Provider [phone] Monika SANTIAGO, Dr. Vang Other Provider Adam SANTIAGO, Dr. Mohr Other Provider Mackenzie SANTIAGO, Dr. Lundberg Other Provider [phone] Julieta SANTIAGO, Dr. Conrad Other Provider Unavailabl sergey Cooper MD, Dr. Dalal Other Provider Darnell SANTIAGO, Dr. Novak Other Provider Estuardo SANTIAGO, Dr. Castanon Other Provider Christa CARDOSO, Dr. Lima Other Provider Hina SANTIAGO, Dr. Kaur Other Provider [phone] Jayro CARDOSO, Dr. Harrington Other Provider Guy SANTIAGO, Dr. Almanzar Other Provider Navid SANTIAGO, Dr. Luke Other Provider Javier SANTIAGO, Dr. Street Attending Provider Unavaila ble Nahun CARDOSO, Dr. Ann Other Provider [phone] Dr. Fitz Deleon DO Emergency Provider Raghavendra [...] Arizmendi Attending Provider Wanda SANTIAGO, Dr. Milton Arizmendi Other Provider [phone] Wanda SANTIAGO, Dr. Milton Arizmendi Other Provider [phone] Charges/Coding Visit Charges Inpatient E&M: 64634 Init Hosp L3 03/13/25 191 <Electronically signed by Milton Muñoz MD> Cosigner Signature (if applicable): CC: Dr. Donal Castle MD; Dr. Milton Muñoz MD~ Signed [facility] Work Phone: 1([phone]) 775-951404-29-2025 History and physical note [facility] Medical Records Department [address] [place] [address] H&P Exam - Hospitalist 03/13/25 1839 MR#: [id number] Acct: [id number] Name: GABRIELA MEDINA Rep #:[id number] : 1950 74 From: Milton harper MD PCP: Dr. Donal Castle MD Status:ADM IN Location: [place] [id number]- [id number] HPI - General General Date of Admission: 03/13/25 HPI Narrative GABRIELA MEDINA, is a 74 F who presents [...] denies any nausea, or vomiting, or diarrhea. COUNT INCLUDES [facility] Medical History Congestive heart failure Hypothyroidism [...] (Auto) 79.2 H, Lymph % (Auto) 11.5L, Steele % (Auto) 7.8, Eos % (Auto) 0.6, [...] 159 H*, [place] II > [address] H 03/13/25 17:30: Troponin T Hi Sens 2 Hr 159 H*, Urine Color Yellow, Urine Clarity Cloudy, Urine pH 5.0, Ur Specific [place] 1.025, Urine Protein 100 H, Urine Glucose [...] with central vascular prominence and at least tychq-xn-zrdcwkhm RIGHT pleural effusion. 2. RIGHT-sided airspace disease adjacent to the effusion may reflect compressiveatelectasis and/or pneumonia. Follow-up to radiographic resolution recommended. 3. Additional description as above. Reading Location: [id number] Assessment & Plan Assessment/Plan (1) Acute kidney [...] with colleagues Charges/Coding Visit Charges Inpatient E&M: 93543 Init Hosp L3 03/13/250 Cosigner Signature (if applicable): CC: Dr. Donal Castle MD; Dr. Milton Muñoz MD~ Signed [facility]04-29-2025 Radiology Diagnostic study note [facility] Imaging Services [address] [place], [place] [id number] Chest PA and Lateral MR#: [id number] Acct: [id number] Name: GABRIELA MEDINA Rep #: [id number] : 1950 F 74 From: Madeleine Christiansen MD PCP: Dr. Donal Castle MD Status: REG ER Study:Chest PA and Lateral Date of Exam: 03/13/25 Exam# [id number] Ordering Dr: Fitz Deleon DO PROCEDURE: CHEST [...] Lungs/pleura: Hypoinflation with vascular crowding. At least vlbhs-yf-nkunrilg RIGHT pleural effusion with fluid extending into the fissures. Adjacent RIGHT mid and lower lung airspace disease. No sizable LEFT pleural or visible pneumothorax. Bones: Suspect demineralization.. Lines and support devices: None. Other: None. RAD/Chest PA and Lateral IMPRESSION: 1. Limited hypoinflated exam. Cardiomegaly with central vascular prominence and at least ddops-wx-uonvppxa RIGHT pleural effusion. 2. RIGHT-sided airspace disease adjacent to the effusion may reflect compressiveatelectasis and/or pneumonia. Follow-up to radiographic resolution recommended. 3. Additional description as above. Reading Location: [id number] CC: Dr. Donal Castle MD; Dr. Fitz Deleon DO ~ Book Illustrator: Signed [facility]04-28-2025 Evaluation note* Diagnosis Onset Date Resolution Status Admit Date Aortic valve stenosis inactive Feb 1:02pm Congestive heart failure inactive March 12, 2025 1:02pm High cholesterol inactive March 122024 1:02pm Hypertension inactive March 12, 2025 1:02pm Chronic renal disease, stage 3, moderately decreased glomerular filtration deleted March 12, 2025 1:02pm Ecchymosis acute Ed[place] 29th, 20 25 6:27pm Acute kidney injury superimp osed on [...] 13, 2025 6:27pm Aortic valve stenosis inactive Apr 2024 6:27pm Congestive heart failure inactive March 13, 2025 6:27pm Hypertension inactive March 13, 2025 6:27pm Pulmonary hypertension inactive Ap ril 2024 6:27pm Type 2 diabetes mellitus wit h diabetic polyneuropathy inactive March 132024 6:27pm Chronic renal disease, stage 3, moderately decreased glomerular filtration deleted March 13, 2025 6:27pm [facility] [facility] Work Phone: [phone] Evaluation note* Diagnosis Onset Date Resolution Status [...] 2025 6:27pm Pulmonary hypertension inactive Ap ril , 2025 6:27pm Type 2 diabetes mellitus wit [...] 2025 11:31am Hypertension chronic May 16 11:31am [facility] [employer] Work Phone: [phone]) 302-309304-03-2025 NoteDate of Procedure 02/15/2025 [place] Protocol Safety Checklist Sign In: A moment [...] for, Post-procedure follow up management communicated. No specimens.[facility]04-03-20[facility] Instructions* Patient Instructions* Axel Chirinos MD, PhD - 02/15/2025 1:28 PM [...] than dabbing lightly with a tissue An fetv-eeq-idbiksw pain reliever (i.e. Tylenol) can be used [...] If it is after hours please call [phone] which will give instructions on how to reach the eye doctor operations intern documented in this encounterDet[facility]04-[facility]-2025 NoteDate of Procedure 02/15/2025. Interpretation Right Eye Findings include Enlarged ELLIOT, Vascular Remodeling. Left Eye Findings include Enlarged ELLIOT, Nonperfusion (Superficial Plexus), Nonperfusion (Deep Plexus), Vascular Remodeling.[id number] NoteDate of Procedure 02/15/2025. OCT Macula Interpretation Right Eye Normal without fluid. Left Eye Abnormal foveal contour. Findings include Atrophy.[id number] NoteHNO ID: [id number] Author: AXEL CHIRINOS MD, PhD Service: ? Author Type: Physician Type: Progress Notes Filed: 02/15/2025 13:28 Note Text: Patient of Dr. Chirinos 0. 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 I have seen and examined Gabriela Medina. I have discussed the case and the management of this patient's care with the Resident/Fellow, if applicable. I also have reviewed and agree with the assessment and plan as stated above and agree with all of its relevant components. Axel Chirinos [facility]04-03-2025 History of Present illness Narrative* Axel Chirinos MD, PhD - 02/15/2025 12:07 PM EDT Patient of Dr. Chirinos 0. 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 I have seen and examined Gabriela Medina. I have discussed the case and the management of this patient's care with the Resident/Fellow, if applicable. I also have reviewed and agree with the assessment and plan as stated above and agree withall of its relevant components. Axel Chirinos MD [facility]01-[facility] Evaluation note* Diagnosis Onset Date Resolution Status Admit Date Aortic valve stenosis acute Juan uary 2024 10:15am High cholesterol acute December 01, 2024 10:15am LV dysfunction acute December 012024 10:15am Pulmonary hypertension acute Ja [facility] 2024 10:15am Chronic renal disease, stage 3, moderately decreased glomerular filtration chronic December 012024 10:15am Hypertension chronic November 10:15am Aortic valve stenosis acute Apr il 2024 1:02pm Congestive heart failure acute March 12, 2025 1:02pm High cholesterol acute March 122024 1:02pm Chronic renal disease, stage 3, moderately decreased glomerular filtration chronic February 1:02pm Hypertension chronic March 12, 2025 1:02pm Acute kidney injury superimposed on chronic kidney disease chronic March 13, 2025 6:27pm [facility] Work Phone: [phone] 289-347701-17-2025 Evaluation note* Diagnosis Onset Date Resolution Status Admit Date Aortic valve stenosis acute Juan uary 2024 10:15am High cholesterol acute December 01, 2024 10:15am LV dysfunction acute December 012024 10:15am Pulmonary hypertension acute Ja nuary 2024 10:15am Chronic renal disease, stage 3, moderately decreased glomerular filtration chronic December 01 10:15am Hypertension chronic November 10:15am Aortic valve stenosis acute Apr il 2024 1:02pm Congestive heart failure acute March [...] 6:27pm Hyperkalemia resolved March 13, 2025 6:27pm [facility] Work Phone: [phone] NoteDate of Procedure 11/30/2024 [place] Protocol Safety Checklist Sign In: A moment [...] for, Post-procedure follow up management communicated. No specimens.[facility]01-16-2025 Instructions* Patient Instructions* Axel Chirinos MD, PhD - 11/30/2024 10:26 AM [...] than dabbing lightly with a tissue An teqh-cqm-ienvixd pain reliever (i.e. Tylenol) can be used [...] If it is after hours please call [phone] which will give instructions on how to reach the eye doctor operations intern documented in this encounterDet[facility]01-16-2025 NoteDate of Procedure 11/30/2024. Extract Puller Information Superintendent Quarry: RE. OCT Macula Interpretation Right Eye Normal without fluid. Left Eye Abnormal foveal contour. Findings include Atrophy.[id number] NoteHNO ID: [id number] Author: AXEL CHIIRNOS MD, PhD Service: ? Author Type: Physician Type: Progress Notes Filed: 11/30/2024 10:26 Note Text: Patient of Dr. Chirinos 0. 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 I have seen and examined Gabriela Medina. I have discussed the case and the management of this patient's care with the Resident/Fellow, if applicable. I also have reviewed and agree with the assessment and plan as stated above and agree with all of its relevant components. Axel Chirinos [facility]01-16-2025 History of Present illness Narrative* Axel Chirinos MD, PhD - 11/30/2024 9:27 AM EST Patient of Dr. Chirinos 0. 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 I have seen and examined Gabriela Medina. I have discussed the case and the management of this patient's care with the Resident/Fellow, if applicable. I also have reviewed and agree with the assessment and plan as stated above and agree withall of its relevant components. Axel Chirinos MD documented in this encounterDet[facility]12-19-2024 [facility]12-07-2024 [facility]12-04-2024 Evaluation note* Diagnosis Onset Date Resolution Status Admit Date High cholesterol acute October 18, 2024 12:29am LV dysfunction acute October 182023 12:29am Pulmonary hypertension acute De cem2023 12:29am Acute hypoxemic respiratory failure resolved October 18 12:29am JOSUE (acute kidney injury) resolved October 18, 2024 12:29am Elevated troponin resolved Decembe r 2023 12:29am Hyperkalemia resolved October 12:29am Metabolic acidosis resolved Decemb er 2023 12:29am Pneumonia resolved October 18, [...] 2024 6:01pm Aortic valve stenosis acute Juan [facility] 2024 10:15am High cholesterol acute December 01, 2024 10:15am LV dysfunction acute December 012024 10:15am Pulmonary hypertension acute [facility] 2024 10:15am Chronic renal disease, stage 3, moderately decreased glomerular filtration chronic December 012024 10:15am Hypertension chronic November 10:15am [facility] Work Phone: [phone] NoteDate of Procedure 10/05/2024 [place] Protocol Safety Checklist Sign In: A moment [...] for, Post-procedure follow up management communicated. No specimens.[facility]11-21-2024 Instructions* Patient Instructions* Axel Chirinos MD, PhD - 10/05/2024 4:43 PM [...] than dabbing lightly with a tissue An mmao-zrm-omavdnl pain reliever (i.e. Tylenol) can be used [...] If it is after hours please call [phone] which will give instructions on how to reach the eye doctor operations intern documented in this encounterDetw[facility]11-21-2024 NoteDate of Procedure 10/05/2024. Extract Puller Information Superintendent Quarry: re. Interpretation Right Eye Normal foveal contour. Findings include Intraretinal fluid. Left Eye Abnormal foveal contour. Findings include Atrophy.[id number] NoteHNO ID: [id number] Author: AXEL CHIRINOS MD, PhD Service: ? Author Type: Physician Type: Progress Notes Filed: 10/05/2024 17:01 Note Text: Patient of Dr. Chirinos 0. 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11-21-2024 History of Present illness Narrative* Axel Chirinos MD, PhD - 10/05/2024 3:38 PM EST Patient of Dr. Chirinos 0. 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 documented in this encounterDetwiler [facility]10-23-2024 Instructions* Patient Instructions* Sarah Reilly II, OD [...] by others. I have seen and examined Gabriela Medina. I have discussed the case and the management of this patient's care with the Resident/Fellow, if applicable. I also have reviewed and agree with the assessment and plan as stated above and agree withall of its relevant components. documented in this encounterDetwiler [facility]10-23-2024 NoteHNO ID: [id number] Author: SARAH REILLY II, OD Service: ? Author Type: GAS METER INSTALLER Type: Progress Notes Filed: 09/06/2024 14:01 Note [...] by others. I have seen and examined Gabriela Medina. I have discussed the case and the management of this patient's care with the Resident/Fellow, if applicable. I also have reviewed and agree with the assessment and plan as stated above and agree with all of its relevant components.[facility]10-23-2024 History of Present illness Narrative* Sarah Reilly [...] by others. I have seen and examined Gabriela Medina. I have discussed the case and the management of this patient's care with the Resident/Fellow, if applicable. I also have reviewed and agree with the assessment and plan as stated above and agree withall of its relevant components. documented in this encounterDet[facility]10-10-2024 NoteDate of Procedure 08/24/2024. Extract Puller Information Superintendent Quarry: re. Interpretation Right Eye Findings include Negative for Intraretinal fluid, Cystoid macular edema, Subretinal fluid. Left Eye Findings include Negative for Intraretinal fluid, Cystoid macular edema, Subretinal fluid. Interval Change Right Eye Better. Left Eye Stable.[id number] NoteDate of Procedure 08/24/2024 [place] Protocol Safety Checklist Sign In: A moment [...] for, Post-procedure follow up management communicated. No specimens.[facility]10-10-2024 NoteHNO ID: [id number] Author: AIME GAMBOA MD Service: ? Author Type: Physician Type: Progress Notes Filed: 08/24/2024 12:33 Note Text: Patient of Dr. Chirinos 0. 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10-10-2024 History of Present illness Narrative* Aime Gamboa MD - 08/24/2024 11:59 AM EDT Patient of Dr. Chirinos 0. 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 documented in this encounterDet[facility]09-05-2024 NoteDate of Procedure 07/20/2024 [place] Protocol Safety Checklist Sign In: A moment [...] for, Post-procedure follow up management communicated. No specimens.[facility]09-05-2024 Instructions* Patient Instructions* Axel Chirinos MD, PhD - 07/20/2024 4:03 PM [...] than dabbing lightly with a tissue An lzim-iuv-abujrxy pain reliever (i.e. Tylenol) can be used [...] If it is after hours please call [phone] which will give instructions on how to reach the eye doctor operations intern documented in this encounterDetw[facility]09-[facility]-2024 NoteHNO ID: [id number] Author: AXEL CHIRINOS MD, PhD Service: ? 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 Axel Chirinos [facility]09-05-2024 History of Present illness Narrative* Axel Chirinos MD, PhD - 07/20/2024 2:43 PM EDT Referred back by Dr. Reilly for cystoid macular edema 0. 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 Axel Chirinos MD [facility] in this encounterDet[facility]09-[facility]-2024 Instructions* Patient Instructions* Sarah Reilly II, OD [...] by others. I have seen and examined Gabriela Medina. I have discussed the case and the management of this patient's care with the Resident/Fellow, if applicable. I also have reviewed and agree with the assessment and plan as stated above and agree withall of its relevant components. documented in this encounterDetw[facility]09-05-2024 NoteHNO ID: [id number] Author: SARAH REILLY II, OD Service: ? Author Type: GAS METER INSTALLER Type: Progress Notes Filed: 07/20/2024 13:12 Note [...] by others. I have seen and examined Gabriela Medina. I have discussed the case and the management of this patient's care with the Resident/Fellow, if applicable. I also have reviewed and agree with the assessment and plan as stated above and agree with all of its relevant components.[facility]09-05-2024 NoteDate of Procedure 07/20/2024. Interpretation Right Eye Abnormal foveal contour. Findings include Intraretinal fluid. Left Eye Abnormal foveal contour. Findings include Atrophy. Interval Change Right Eye Worse. Left Eye Stable. Notes Refer to retina.[id number] History of Present illness Narrative* Sarah Reilly [...] by others. I have seen and examined Gabriela Medina. I have discussed the case and the management of this patient's care with the Resident/Fellow, if applicable. I also have reviewed and agree with the assessment and plan as stated above and agree withall of its relevant components. documented in this encounterDet[facility] Instructions* Patient Instructions* Sarah Reilly II, OD [...] by others. I have seen and examined Gabriela Medina. I have discussed the case and the management of this patient's care with the Resident/Fellow, if applicable. I also have reviewed and agree with the assessment and plan as stated above and agree withall of its relevant components. Sarah Reilly II, OD documented in this encounterDetw[facility]02-07-[facility]24 History of Present illness Narrative* Sarah Reilly [...] by others. I have seen and examined Gabriela Medina. I have discussed the case and the management of this patient's care with the Resident/Fellow, if applicable. I also have reviewed and agree with the assessment and plan as stated above and agree withall of its relevant components. Sarah Reilly II, OD documented in this encounterDetw[facility]11-29-2023 Instructions* Patient Instructions* Sarah Reilly II, OD [...] by others. I have seen and examined Gabriela Medina. I have discussed the case and the management of this patient's care with the Resident/Fellow, if applicable. I also have reviewed and agree with the assessment and plan as stated above and agree withall of its relevant components. Sarah Reilly II, OD documented in this encounterDetw[facility]11-29-2023 History of Present illness Narrative* Sarah Reilly [...] by others. I have seen and examined Gabriela Medina. I have discussed the case and the management of this patient's care with the Resident/Fellow, if applicable. I also have reviewed and agree with the assessment and plan as stated above and agree withall of its relevant components. Sarah Reilly II, OD documented in this encounterDetw[facility]11-17-2023 History of Present illness Narrative* Ivan Baxter [...] ophthalmic technical staff.I have seen and examined Gabriela Medina. I have discussed the examination findings, diagnosis, and treatment options with Gabriela Medina and/or her family. I have also reviewed and agree withthe assessment and plan as stated above and agree with all its relevant components. I gave the patient the opportunity to ask questions about the findings, diagnosis, and treatment options. documented in this encounterDetwiler [facility]11-16-2023 Hospital Discharge instructions* Discharge Instructions* Ivan Baxter MD - 09/30/2023 10:24 AM EST Follow printed discharge instructions [facility] Work Phone: [phone]) 301-779011-16-2023 Miscellaneous Notes* Op Note - Ivan Baxter MD - 09/30/2023 10:08 AM EST Phacoemulsification Cataract with Insertion Intraocular Lens (R) Operative Note Date: 09/30/2023 OR Location: [facility] OR Name: Gabriela Ward DOB: 1950, Age: 73 y.o., , Sex: female Diagnosis Pre-op Diagnosis * 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] Post-op Diagnosis * 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] Procedures Phacoemulsification Cataract with Insertion Intraocular Lens 41234 - W[place] XCAPSL CTRC RMVL INSJ IO LENS PROSTH W/O ECP Surgeons * Ivan Baxter - Primary Resident/Fellow/Other Plant And Equipment Worker: Surgeon(s) and Role: Procedure Summary Anesthesia: Monitor Anesthesia Care ASA: III Anesthesia Staff: Anesthesiologist: Girish Najera DO Estimated Blood Loss: None Intra-op Medications: Medication Name Total Dose lactated Ringer's infusion Cannot be calculated midazolam (Versed) injection 1 mg 1 mg Anesthesia Record Intraprocedure I/O Totals Intake lactated Ringer's infusion 300.00 mL Total Intake 300 mL Specimen: No specimens collected Staff: Rock Loader: Sena Oliveros RN Scrub Person: Lucas Bullard Drains and/or Catheters: * None in log * Implants: Implants Type Name Action Serial No. Lens LENS, INTRAOCULAR, SN60WF 20.5 KANDACE - [id number] - [id number] Implanted [id number] Findings: Combined Form Age Related Cataract Right [...] drink after midnight Additional Instructions: Will need electric pile driver operator home, will receive call day before surgery with arrival time documented in this encounterLouis [facility] Work Phone: [phone] 512-279611-16-2023 Note* Op Note - Ivan Baxter MD - 09/30/2023 10:08 AM EST Phacoemulsification Cataract with Insertion Intraocular Lens (R) Operative Note Date: 09/30/2023 OR Location: [facility] OR Name: Gabriela Renée Villavicenciojaqueline Ward, : 1950, Age: 73 y.o., , Sex: female Diagnosis Pre-op Diagnosis * 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] Post-op Diagnosis * 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] Procedures Phacoemulsification Cataract with Insertion Intraocular Lens 33921 - W[place] XCAPSL CTRC RMVL INSJ IO LENS PROSTH W/O ECP Surgeons * Ivan Baxter - Primary Resident/Fellow/Other Plant And Equipment Worker: Surgeon(s) and Role: Procedure Summary Anesthesia: Monitor Anesthesia Care ASA: III Anesthesia Staff: Anesthesiologist: Girish Naejra DO Estimated Blood Loss: None Intra-op Medications: Medication Name Total Dose lactated Ringer's infusion Cannot be calculated midazolam (Versed) injection 1 mg 1 mg Anesthesia Record Intraprocedure I/O Totals Intake lactated Ringer's infusion 300.00 mL Total Intake 300 mL Specimen: No specimens collected Staff: Rock Loader: Sena Oliveros RN Scrub Person: Lucas Bullard Drains and/or Catheters: * None in log * Implants: Implants Type Name Action Serial No. Lens LENS, INTRAOCULAR, SN60WF 20.5 KANDACE - [id number] - [id number] Implanted [id number] Findings: Combined Form Age Related Cataract Right [...] Attestation: I performed the procedure. Ivan Baxter [facility] Work Phone: [phone] 275-413611-16-2023 Attending History and physical note* Ivan Baxter [...] Girish Simon MD, MD REASON FOR VISIT: Gabriela Medina is a 73 year old female [...] dialysis. No history of symptoms or problems. HYDROGEN OPERATOR: Negative for abnormal vaginal bleeding, abnormal vaginal [...] compliance. SIGNATURE: Ivan Baxter MD PATIENT NAME: Gabriela Medina DATE: September 27, 2023 TIME: 3:45 PM PAGER/CONTACT #: Source Comments - [facility] In the event this information is protected [...] 3:00 PM EST Office [place] [address] [place] [address] Combined form of age-related cataract, right eye [...] number is lower risk 7 Data from: https://www.neighborhoodatlas.medicine.[facility].edu/. Last address used for calculation [address] [...] Left Eye Distance SC 20/200 Visual Function: Gabriela Renée Medina states that the decline in vision from the cataract impedes herabilities as listed in the HPI, as well as other activities of daily living. Gabriela Medina has confirmed that she is no [...] surgery with lens implantation were discussed with Gabriela Medina in detail. she appeared to understand [...] ophthalmic technical staff.I have seen and examined Gabriela Medina. I have discussed the examination findings, diagnosis, and treatment options with Gabriela Medina and/or her family. I have also [...] 1:15 PM EST Office [place] [address] [place] [address] 1 DAY PO 2ND RE Plan of Treatment - Scheduled Procedures Scheduled Procedures Name Priority Associated Diagnoses Date/Time SURGERY AT [facility] Combined form of age-related cataract, [...] - Wearing Rx Wearing Rx Sphere Cylinder [place] Add Right eye -0.25 +1.25 070 +2.75 Left eye Eye Exam Type: PAL Eye Exam - Manifest Refraction (Auto) Manifest Refraction (Auto) Sphere Cylinder [place] Right eye -1.00 +1.00 065 Left eye -1.00 +0.50 080 Care Teams - documented as of this encounter Care Teams Steel Plate Printer Relationship Specialty Start Date End Date Girish Simon MD PCP - General Family Medicine 12/11/11 Yasmeen López MD Primary Staff Physician Cardiology 01/31/19 Patient Demographics Patient Demographics Patient Address Communication Language Race / Ethnicity Marital Status [address] (Home) [place] [address] Former (2011 - 2016): [address] (Home) [place] [address] [email or web address] (Preferred) White / Not or [facility] Work Phone: [phone] 630-368111-16-2023 History and physical note* Ivan Baxter MD - 09/30/2023 8:34 AM EST Images from the original note were not included. H&P Notes - documented in this encounter Ivan Baxter MD - 09/27/2023 3:45 PM EST HISTORY AND PHYSICAL EXAMINATION SERVICE DATE: 09/27/2023 SERVICE TIME: PRIMARY CARE PHYSICIAN: Girish Simon MD, MD REASON FOR VISIT: Gabriela Medina is a 73 year old female [...] Prior to Admission medications as of 09/27/23 3783 Medication Sig Last Dose Taking keTORolac (ACULAR) [...] dialysis. No history of symptoms or problems. HYDROGEN OPERATOR: Negative for abnormal vaginal bleeding, abnormal vaginal [...] compliance. SIGNATURE: Ivan Baxter MD PATIENT NAME: Gabriela Medina DATE: September 27, 2023 TIME: 3:45 PM PAGER/CONTACT #: Source Comments - [facility] In the event this information is protected [...] PM EST Office Visit [facility] Ophthalmology [address] [id number] Ivan Baxter MD [address] [id number] Combined form of age-related cataract, right eye [...] number is lower risk 7 Data from: https://www.neighborhoodatlas.medicine.[facility].edu/. Last address used for calculation [address] [...] Left Eye Distance SC 20/200 Visual Function: Gabriela Medina states that the decline in vision from the cataract impedes herabilities as listed in the HPI, as well as other activities of daily living. Gabriela Medina has confirmed that she is no [...] surgery with lens implantation were discussed with Gabriela Medina in detail. she appeared to understand [...] ophthalmic technical staff.I have seen and examined Gabriela Medina. I have discussed the examination findings, diagnosis, and treatment options with Gabriela Medina and/or her family. I have also [...] PM EST Office Visit [facility] Ophthalmology [address] [place] [address] Ivan Baxter MD [address] [place] [address] 1 DAY PO 2ND RE Plan of Treatment - Scheduled Procedures Scheduled Procedures Name Priority Associated Diagnoses Date/Time SURGERY AT [facility] Combined form of age-related cataract, [...] - Wearing Rx Wearing Rx Sphere Cylinder [place] Add Right eye -0.25 +1.25 070 +2.75 Left eye Eye Exam Type: PAL Eye Exam - Manifest Refraction (Auto) Manifest Refraction (Auto) Sphere Cylinder [place] Right eye -1.00 +1.00 065 Left eye -1.00 +0.50 080 Care Teams - documented as of this encounter Care Teams Steel Plate Printer Relationship Specialty Start Date End Date Girish Simon MD PCP - General Family Medicine 12/11/11 Yasmeen López MD Primary Staff Physician Cardiology 01/31/19 Patient Demographics Patient Demographics Patient Address Communication Language Race / Ethnicity Marital Status [address] (Home) [place] [address] Former (2011 - 2016): [address] (Home) [place] [address] [email or web address] (Preferred) White / Not or [facility] Work Phone: [phone] History and physical note* Ivan Baxter MD [...] Girish Simon MD, MD REASON FOR VISIT: Gabriela Medina is a 73 year old female who is being seen for combined age related cataract right eye The patient has the following: ACTIVE PROBLEM LIST Hypermetropia Regular Astigmatism Presbyopia 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 No history of symptoms or problems. HYDROGEN OPERATOR: Negative for abnormal vaginal bleeding, abnormal vaginal [...] compliance. SIGNATURE: Ivan Baxter MD PATIENT NAME: Gabriela Medina DATE: September 27, 2023 TIME: 3:45 PM PAGER/CONTACT #: Source Comments - [facility] In the event this information is protected [...] 3:00 PM EST Office Visit [facility] Ophthalmology [address] [place] [address] [place] [address] Combined form of age-related cataract, right eye [...] number is lower risk 7 Data from: https://www.neighborhoodatlas.[facility]/. Last address used for calculation [address] [...] Left Eye Distance SC 20/200 Visual Function: Gabriela D Corine states that the decline in vision from the cataract impedes herabilities as listed in the HPI, as well as other activities of daily living. Gabriela Medina has confirmed that she is no [...] surgery with lens implantation were discussed with Gabriela Medina in detail. she appeared to understand [...] ophthalmic technical staff.I have seen and examined Gabriela Medina. I have discussed the examination findings, diagnosis, and treatment options with Gabriela Medina and/or her family. I have also [...] PM EST Office Visit [facility] Ophthalmology [address] [id number] Ivan Baxter MD [address] [place] [address] 1 DAY PO 2ND RE Plan of Treatment - Scheduled Procedures Scheduled Procedures Name Priority Associated Diagnoses Date/Time SURGERY AT [facility] Combined form of age-related cataract, [...] - Wearing Rx Wearing Rx Sphere Cylinder [place] Add Right eye -0.25 +1.25 070 +2.75 Left eye Eye Exam Type: PAL Eye Exam - Manifest Refraction (Auto) Manifest Refraction (Auto) Sphere Cylinder [place] Right eye -1.00 +1.00 065 Left eye -1.00 +0.50 080 Care Teams - documented as of this encounter Care Teams Steel Plate Printer Relationship Specialty Start Date End Date Girish Simon MD PCP - General Family Medicine 12/11/11 Yasmeen López MD Primary Staff Physician Cardiology 01/31/19 Patient Demographics Patient Demographics Patient Address Communication Language Race / Ethnicity Marital Status [address] (Home) [place] [address] Former (2011 - 2016): [address] (Home) [place] [address] [email or web address] (Preferred) White / Not or * Ivan Baxter MD - 09/30/2023 8:34 AM EST Images from the original note were not included. H&P Notes - documented in this encounter Ivan Baxter MD - 09/27/2023 3:45 PM EST HISTORY AND PHYSICAL EXAMINATION SERVICE DATE: 09/27/2023 SERVICE TIME: PRIMARY CARE PHYSICIAN: Girish Simon MD, MD REASON FOR VISIT: Gabriela Medina is a 73 year old female [...] dialysis. No history of symptoms or problems. HYDROGEN OPERATOR: Negative for abnormal vaginal bleeding, abnormal vaginal [...] compliance. SIGNATURE: Ivan Baxter MD PATIENT NAME: Gabriela Medina DATE: September 27, 2023 TIME: 3:45 PM PAGER/CONTACT #: Source Comments - [facility] In the event this information is protected [...] 3:00 PM EST Office [place] [address] [place] [address] Combined form of age-related cataract, right eye [...] number is lower risk 7 Data from: https://www.neighborhoodatlas.[facility]/. Last address used for calculation [...] Left Eye Distance SC 20/200 Visual Function: Gabriela Renée Medina states that the decline in vision from the cataract impedes herabilities as listed in the HPI, as well as other activities of daily living. Gabriela Medina has confirmed that she is no [...] surgery with lens implantation were discussed with Gabriela Medina in detail. she appeared to understand [...] ophthalmic technical staff.I have seen and examined Gabriela Medina. I have discussed the examination findings, diagnosis, and treatment options with Gabriela Medina and/or her family. I have also [...] 1:15 PM EST Office Visit [facility] Ophthalmology [address] [place] [address] Ivan Baxter MD [address] [place] [address] 1 DAY PO 2ND RE Plan of Treatment - Scheduled Procedures Scheduled Procedures Name Priority Associated Diagnoses Date/Time SURGERY AT [facility] Combined form of age-related cataract, [...] - Wearing Rx Wearing Rx Sphere Cylinder [place] Add Right eye -0.25 +1.25 070 +2.75 Left eye Eye Exam Type: PAL Eye Exam - Manifest Refraction (Auto) Manifest Refraction (Auto) Sphere Cylinder [place] Right eye -1.00 +1.00 065 Left eye -1.00 +0.50 080 Care Teams - documented as of this encounter Care Teams Steel Plate Printer Relationship Specialty Start Date End Date Girish Simon MD PCP - General Family Medicine 12/11/11 Yasmeen López MD Primary Staff Physician Cardiology 01/31/19 Patient Demographics Patient Demographics Patient Address Communication Language Race / Ethnicity Marital Status [address] (Home) [place] [address] Former (2011 - 2016): [address] (Home) [place] [address] [email or web address] (Preferred) White / Not or documented in this [facility] Work Phone: [phone]) 266-608611-13-2023 History and physical note* Ivan Baxter MD - 09/27/2023 3:45 PM EST HISTORY AND PHYSICAL EXAMINATION SERVICE DATE: 09/27/2023 SERVICE TIME: PRIMARY CARE PHYSICIAN: Girish Simon MD, MD REASON FOR VISIT: Gabriela Medina is a 73 year old female [...] Elevated cholesterol Hx of cancer of endometrium 2014 Hypertension Hypothyroidism PAST SURGICAL HISTORY Procedure Laterality [...] dialysis. No history of symptoms or problems. HYDROGEN OPERATOR: Negative for abnormal vaginal bleeding, abnormal vaginal [...] compliance. SIGNATURE: Ivan Baxter MD PATIENT NAME: Gabriela Medina DATE: September 27, 2023 TIME: 3:45 PM PAGER/CONTACT #: documented in this [facility]Det[facility] History of Present illness Narrative* Ivan Baxter [...] Left Eye Distance SC 20/200 Visual Function: Gabriela Medina states that the decline in vision from the cataract impedes herabilities as listed in the HPI, as well as other activities of daily living. Gabriela Medina has confirmed that she is no [...] surgery with lens implantation were discussed with Gabriela Medina in detail. she appeared to understand [...] ophthalmic technical staff.I have seen and examined Gabriela Medina. I have discussed the examination findings, diagnosis, and treatment options with Gabriela Medina and/or her family. I have also reviewed and agree withthe assessment and plan as stated above and agree with all its relevant components. I gave the patient the opportunity to ask questions about the findings, diagnosis, and treatment options. documented in this encounterDet[facility]11-13-2023 Note* Preprocedure Instructions - Sakina Abreu RN - 09/27/2023 12:50 PM EST No outpatient medications have been marked as taking for the 09/30/23 encounter (Hospital Encounter). NPO Instructions: Nothing to eat or drink after midnight Additional Instructions: Will need electric pile driver operator home, will receive call day before surgery with arrival time [facility]10-19-[facility] Miscellaneous Notes* Addendum Note - Sarah Reilly II, OD - 09/02/2023 1:00 PM EDTAddended by: SARAH REILLY II on: 09/02/2023 01:00 PM Modules accepted: Orders documented in this encounterDet[facility]10-19-[facility] Instructions* Patient Instructions* Sarah Reilly II, OD [...] by others. I have seen and examined Gabriela Renée Medina. I have discussed the case and the management of this patient's care with the Resident/Fellow, if applicable. I also have reviewed and agree with the assessment and plan as stated above and agree withall of its relevant components. Sarah Reilly II, OD documented in this encounterDet[facility]10-[facility]-2023 History of Present illness Narrative* Sarah Reilly [...] by others. I have seen and examined Gabriela Medina. I have discussed the case and the management of this patient's care with the Resident/Fellow, if applicable. I also have reviewed and agree with the assessment and plan as stated above and agree withall of its relevant components. Sarah Reilly II, OD documented in this encounterDet[facility]10-13-2023 Instructions* Patient Instructions* Ivan Baxter MD - 08/27/2023 9:05 AM EDT Plan Cataract Surgery with Monofocal Intraocular lens Implant Right Eye on 09/30/2023 at [facility]. Current Ophthalmic Meds fluorometholone (FML LIQUID FILM) [...] any questions please contact our office at [phone]. After office hours or on the weekend, please call Dr. Baxter on his cell phone at [phone]. documented in this encounterDet[facility]10-[facility]23 History of Present illness Narrative* Ivan Baxter MD - 08/27/2023 8:57 AM EDT ASSESSMENT/PLAN: 1. Combined forms of age-related cataract of right eye - ICD9: 366.19, ICD10: H25.811 (primary diagnosis) Plan Cataract Surgery with Monofocal Intraocular lens Implant Right Eye on 09/30/2023 at [facility]. Current Ophthalmic Meds fluorometholone (FML LIQUID FILM) [...] ophthalmic technical staff.I have seen and examined Gabriela Villavicenciojaqueline. I have discussed the examination findings, diagnosis, and treatment options with Gabriela Villavicenciojaqueline and/or her family. I have also reviewed and agree withthe assessment and plan as stated above and agree with all its relevant components. I gave the patient the opportunity to ask questions about the findings, diagnosis, and treatment options. documented in this encounterDet[facility]10-12-[facility] Note* Op Note - Ivan Baxter MD - 08/26/2023 12:35 PM EDT CATARACT EXTRACTION W/IOL IMPLANT L EYE (L) Operative Note Date: 08/26/2023 OR Location: [facility] OR Name: Ed Medina, : 1950, Age: 73 y.o., , Sex: female Diagnosis Pre-op Diagnosis * Combined 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 [H25.812] Post-op Diagnosis * Combined 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 [H25.812] Procedures * CATARACT EXTRACTION W/IOL IMPLANT L EYE Surgeons * Ivan Baxter - Primary Resident/Fellow/Other Plant And Equipment Worker: No surgical staff documented. Procedure Summary Anesthesia: [...] Totals None Specimen: No specimens collected Staff: Rock Loader: Patrizia Hobbs RN Scrub Person: Armen Nolasco RN Implants: Implants Type Name Action Serial No. Lens LENS, INTRAOCULAR, SN60WF 21.0 - [id number] - [id number] Implanted [id number] Findings: Combined Form Age Related Cataract Left [...] Attestation: I performed the procedure. Ivan Baxter [facility] Work Phone: 1(801) 281-351710-12-2023 Miscellaneous Notes* Op Note - Ivan Baxter MD - 08/26/2023 12:35 PM EDT CATARACT EXTRACTION W/IOL IMPLANT L EYE (L) Operative Note Date: 08/26/2023 OR Location: [facility] OR Name: Ed Medina, : 1950, Age: 73 y.o., , Sex: female Diagnosis Pre-op Diagnosis * Combined 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 [H25.812] Post-op Diagnosis * Combined 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 [H25.812] Procedures * CATARACT EXTRACTION W/IOL IMPLANT L EYE Surgeons * Ivan Baxter - Primary Resident/Fellow/Other Plant And Equipment Worker: No surgical staff documented. Procedure Summary Anesthesia: [...] Totals None Specimen: No specimens collected Staff: Rock Loader: Patrizia Hobbs RN Scrub Person: Armen Nolasco RN Implants: Implants Type Name Action Serial No. Lens LENS, INTRAOCULAR, SN60WF 21.0 - [id number] - [id number] Implanted [id number] Findings: Combined Form Age Related Cataract Left [...] Ivan Baxter * Significant Event - Janene Walton RN - 08/26/2023 11:20 AM EDT Pt feeling more relaxed now [facility] Phone: [phone]) 795-592910-12-2023 Hospital Discharge instructions* Discharge Instructions* Ivan Baxter MD - 08/26/2023 11:29 AM EDT [address].. PDI to pt. And JAMAAL. Follow printed discharge instructions documented in this encounterLouis [facility] Work Phone: [phone]) 779-540910-12-2023 History and physical note* Ivan Baxter MD - 08/26/2023 11:21 AM EDT Reason for Visit Reason for Visit - Reason Comments Blurred Vision Both Eyes Difficulty Reading Both Eyes Glare Halos Both Eyes Encounter Details Encounter Details Date Type Department Care Team Description 08/18/2023 10:45 AM EDT Office Visit [facility] Ophthalmology [address] [place] [id number] Ivan Baxter MD [address] [place] [id number] Combined forms of age-related cataract of left [...] number is lower risk 7 Data from: https://www.neighborhoodatlas.[facility]/. Last address used for calculation [address] Social History Sex and Gender Information Value [...] any questions please contact our office at [phone]. After office hours or on the weekend, please call Dr. Baxter on his cell phone at [phone]. Ordered Prescriptions - documented in this encounterReconcile [...] 20/80 Right Eye High 20/100 Visual Function: Gabriela Medina states that the decline in vision from the cataract impedes herabilities as listed in the HPI, as well as other activities of daily living. Gabriela Medina has confirmed that she is no [...] surgery with lens implantation were discussed with Gabriela Medina in detail. she appeared to understand [...] left eye on August 26, 2023 at [facility]. Patient wishes to have cataract surgery with [...] ophthalmic technical staff.I have seen and examined Gabriela Medina. I have discussed the examination findings, diagnosis, and treatment options with Gabriela Medina and/or her family. I have also [...] AM EDT Office Visit [facility] Ophthalmology [address] [place] [address] Ivan Baxter MD [address] [place] [address] 09/08/2023 1:30 PM EDT Office Visit [facility] Optometry [address] [place] [address] Sarah Reilly II, OD [address] [place] [address] Plan of Treatment - Scheduled Procedures Scheduled Procedures Name Priority Associated Diagnoses Date/Time SURGERY AT [facility] Combined form of age-related cataract, [...] - Wearing Rx Wearing Rx Sphere Cylinder [place] Add Right eye -0.25 +1.25 070 +2.75 Left eye -0.25 +1.25 090 +2.75 Eye Exam Type: PAL Care Teams - documented as of this encounter Care Teams Steel Plate Printer Relationship Specialty Start Date End Date Girish Simon MD PCP - General Family Medicine 12/11/11 Yasmeen López MD Primary Staff Physician edicine [facility] Work Phone: [phone] History and physical note* Ivan Baxter MD - 08/26/2023 11:21 AM EDT Reason for Visit Reason for Visit - Reason Comments Blurred Vision Both Eyes Difficulty Reading Both Eyes Glare Halos Both Eyes Encounter Details Encounter Details Date Type Department Care Team Description 08/18/2023 10:45 AM EDT Office Visit [facility] Ophthalmology [address] [place] [id number] Ivan Baxter MD [address] [place] [address] Combined forms of age-related cataract of left [...] number is lower risk 7 Data from: https://www.neighborhoodatlas.[facility]/. Last address used for calculation [address] [...] any questions please contact our office at [phone]. After office hours or on the weekend, please call Dr. Baxter on his cell phone at [phone]. Ordered Prescriptions - documented in this encounterReconcile [...] 20/80 Right Eye High 20/100 Visual Function: Gabriela Medina states that the decline in vision from the cataract impedes herabilities as listed in the HPI, as well as other activities of daily living. Gabriela Medina has confirmed that she is no [...] surgery with lens implantation were discussed with Gabriela D Knoble in detail. she appeared to understand and [...] left eye on August 26, 2023 at [facility]. Patient wishes to have cataract surgery with [...] ophthalmic technical staff.I have seen and examined Gabriela Medina. I have discussed the examination findings, diagnosis, and treatment options with Gabriela Medina and/or her family. I have also [...] 8:45 AM EDT Office Visit [facility] Ophthalmology [address] [place] [address] [place] [address] 09/08/2023 1:30 PM EDT Office Visit [facility] Optometry [address] [place] [address] Sarah Reilly II, OD [address] [place] [address] Plan of Treatment - Scheduled Procedures Scheduled Procedures Name Priority Associated Diagnoses Date/Time SURGERY AT [facility] Combined form of age-related cataract, [...] - Wearing Rx Wearing Rx Sphere [place]ylinder [place] Add Right eye -0.25 +1.25 070 +2.75 Left eye -0.25 +1.25 090 +2.75 Eye Exam Type: PAL Care Teams - documented as of this encounter Care Teams Steel Plate Printer Relationship Specialty Start Date End Date Girish Simon MD PCP - General Family Medicine 12/11/11 Yasmeen López MD Primary Staff Physician documented in [facility] encounterUnKe[facility] Work Phone: [phone] Note* Significant Event - Janene Walton RN - 08/26/2023 11:20 AM EDT Pt feeling more relaxed now [facility] Work Phone: [phone] Instructions* Patient Instructions* Ivan Baxter MD - [...] Intraocular lens left eye on 08-26-2023 at [facility]. Return for basic consents. If you have any questions please contact our office at [phone]. After office hours or on the weekend, please call Dr. Baxter on his cell phone at [phone]. documented in this encounterDet[facility] History of Present illness Narrative* Ivan Baxter [...] 20/80 Right Eye High 20/100 Visual Function: Gabriela Medina states that the decline in vision from the cataract impedes herabilities as listed in the HPI, as well as other activities of daily living. Gabriela Medina has confirmed that she is no [...] surgery with lens implantation were discussed with Gabriela Medina in detail. she appeared to understand [...] left eye on August 26, 2023 at [facility]. Patient wishes to have cataract surgery with [...] ophthalmic technical staff.I have seen and examined Gabriela Medina. I have discussed the examination findings, diagnosis, and treatment options with Gabriela Medina and/or her family. I have also reviewed and agree withthe assessment and plan as stated above and agree with all its relevant components. I gave the patient the opportunity to ask questions about the findings, diagnosis, and treatment options. Ivan Baxter MD documented in this encounterDetwiler [facility]06-21-2023 Miscellaneous Notes* Addendum Note - Sarah Reilly II, OD - 05/05/2023 2:14 PM EDTAddended by: SARAH REILLY II on: 05/05/2023 02:14 PM Modules accepted: Orders documented in this encounterDetwiler Memorial Hospital06-21-2023 Instructions* Patient Instructions* Sarah Reilly II, OD [...] by others. I have seen and examined Gabriela Medina. I have discussed the case and the management of this patient's care with the Resident/Fellow, if applicable. I also have reviewed and agree with the assessment and plan as stated above and agree withall of its relevant components. Sarah Reilly II, OD documented in this encounterDetwiler [facility] Hospital06-21-2023 History of Present illness Narrative* Sarah Reilly [...] by others. I have seen and examined Gabriela Medina. I have discussed the case and the management of this patient's care with the Resident/Fellow, if applicable. I also have reviewed and agree with the assessment and plan as stated above and agree withall of its relevant components. Sarah Reilly II, OD documented in this encounterDetwiler [facility] Hospital04-03-2023 History of Present illness NarrativePt reassessed this [...] evidenceof instability. [facility] Work Phone: [phone]) [phone] Instructions* Patient Instructions* Sarah Reilly II, OD [...] by others. I have seen and examined Gabriela Medina. I have discussed the case and the management of this patient's care with the Resident/Fellow, if applicable. I also have reviewed and agree with the assessment and plan as stated above and agree withall of its relevant components. Sarah Reilly II, OD documented in this encounterDetwiler [facility] Hospital02-08-2023 History of Present illness Narrative* Sarah Reilly [...] by others. I have seen and examined Gabriela Medina. I have discussed the case and the management of this patient's care with the Resident/Fellow, if applicable. I also have reviewed and agree with the assessment and plan as stated above and agree withall of its relevant components. Sarah Reilly II, OD documented in this encounterDetwiler [facility] Hospital01-19-2023 History of Present illness Narrative* Axel Chirinos MD, PhD - 12/03/2022 4:30 PM EST Assessment and Plan Referred by Dr. 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 Axel Chirinos MD documented in this encounterDetwiler [facility] Hospital11-17-2022 Instructions* Patient Instructions* Axel Chirinos MD, PhD - 10/01/2022 3:22 PM [...] For Questions or an Appointment, please call: [phone] Visit us online at [email or web address]. documented in this encounterDetwiler Memorial Hospital11-17-2022 History of Present illness Narrative* Axel Chirinos MD, PhD - 10/01/2022 2:00 PM EST Assessment and Plan Referred by Dr. 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 Axel Chirinos MD documented in this encounterDetwiler [facility] Hospital10-25-2022 Instructions* Patient Instructions* Sarah Reilly II, OD [...] by others. I have seen and examined Gabrieal Medina. I have discussed the case and the management of this patient's care with the Resident/Fellow, if applicable. I also have reviewed and agree with the assessment and plan as stated above and agree withall of its relevant components. Sarah Reilly II, OD documented in this encounterDetwiler [facility] Hospital10-25-2022 History of Present illness Narrative* Sarah Reilly [...] by others. I have seen and examined Gabriela Medina. I have discussed the case and the management of this patient's care with the Resident/Fellow, if applicable. I also have reviewed and agree with the assessment and plan as stated above and agree withall of its relevant components. Sarah Reilly II, OD documented in this encounterDetwiler [facility] Hospital06-21-2022 Instructions* Patient Instructions* Sarah Reilly II, OD [...] by others. I have seen and examined Gabriela Medina. I have discussed the case and the management of this patient's care with the Resident/Fellow, if applicable. I also have reviewed and agree with the assessment and plan as stated above and agree withall of its relevant components. Sarah Reilly II, OD documented in this encounterDetwiler [facility] Hospital06-21-2022 History of Present illness Narrative* Sarah Reilly [...] by others. I have seen and examined Gabriela Medina. I have discussed the case and the management of this patient's care with the Resident/Fellow, if applicable. I also have reviewed and agree with the assessment and plan as stated above and agree withall of its relevant components. Sarah Reilly II, OD documented in this encounterDetwiler [facility] Hospital09-28-2021 History of Present illness Narrative* 20 yr [...] of motion/joint mobility, strength and transfers. [facility] Work Phone: 1([phone]) 422-448302-18-2015 History of Past illness Narrative* Problem Noted Date Diagnosed Date Resolved Date Combined forms of age-relate d cataract of both eyes 01/02/2015 09/27/2023 documented as of this encounter (statuses as of 09/28/2023) [facility] of Past illness Narrative* Problem Noted Date Diagnosed Date Resolved Date Combined forms of age-relate d cataract of both eyes 01/02/2015 09/27/2023 documented as of this encounter (statuses as of 10/01/2023) [facility] History of Past illness Narrative* Problem Noted Date Diagnosed Date Resolved Date Combined forms of age-relate d cataract of both eyes 01/02/2015 09/27/2023 documented as of this encounter (statuses as of 10/14/2023) [facility] of Past illness Narrative* Problem Noted Date Diagnosed Date Resolved Date Combined forms of age-relate d cataract of both eyes 01/02/2015 09/27/2023 documented as of this encounter (statuses as of 12/22/2023) [facility] HospitalConsult note Author Omkar Gonzales [facility] Note Date/Time March 23, 2025 1:24pm [facility] Medical Records Department [address] [place] [address] Counseling Note - Pharmacy 03/23/25 1133 MR#: [id number] Acct: [id number] Name: GABRIELA MEDINA Rep #:[id number] : 1950 74 From: Omkar Gonzales PCP: Dr. 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 documented in this encounter [facility]* Diagnosis Type 2 diabetes mellitus without [...] Regular astigmatism Presbyopia documented in this encounter [facility]* Diagnosis Central retinal artery occlusion, left eye- Primary Central artery occlusion of retina Operculated retinal tear of left eye 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 documented in this encounter [facility]* Diagnosis Onset Date Resolution Status Osteoarthritis of right hip noneactive Hip pain noneactive Osteoarthritis of right hip acute [facility] Work Phone: Evaluation note* Diagnosis Central retinal artery occlusion, left eye Central artery occlusion of retina documented in this encounter [facility]* Diagnosis Regular astigmatism of both eyes- [...] stated as uncontrolled documented in this encounter [facility]* Diagnosis Combined 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- Primary Other and combined forms of senile cataract Combined forms of age-related cataract of right eye Other and combined forms of senile cataract 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 without macular edema, without long-term current use of insulin ([facility]) Central retinal artery occlusion, left eye Central artery occlusion of retina Operculated retinal tear of left eye 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 Essential hypertension Unspecified essential hypertension documented in this encounter [facility]* Diagnosis Combined 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- Primary Combined 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 documented in this encounter [facility] Work Phone: Evaluation note* Diagnosis Combined forms of age-related cataract of right eye- Primary Other and combined forms of senile cataract Status post cataract extraction and insertion of intraocular lens of left eye documented in this encounter [facility] [place] [facility]* Diagnosis Status post cataract extraction and insertion of intraocular lens of left eye- Primary Combined form of age-related cataract, right eye documented in this encounter [facility]* Diagnosis Combined form of age-related cataract, right eye- Primary 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 without macular edema, without long-term current use of insulin ([facility]) Status post cataract extraction and insertion of intraocular lens of left eye Central retinal artery occlusion, left eye Central artery occlusion of retina Operculated retinal tear of left eye 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 Essential hypertension Unspecified essential hypertension Hypercholesterolemia Pure hypercholesterolemia Combined form of age-related cataract, right eye documented in this encounter [facility]* Diagnosis Combined forms of age-related cataract of right eye- Primary HTN (hypertension) Unspecified essential hypertension Class 3 severe obesity with body mass index (BMI) of 45.0 to 49.9 in adult (CMS/[facility]) Diabetes mellitus, type 2 (CMS/HCC) Type II or unspecified type diabetes mellitus without mention of complication, not stated as uncontrolled documented in this encounter [facility] Work Phone: Evaluation note* Diagnosis Status post [...] retina without detachment documented in this encounter [facility] [place] [facility]* Diagnosis Status post cataract extraction and insertion of intraocular lens of right eye- Primary Status post cataract extraction and insertion of intraocular lens of left eye documented in this encounter [facility] [place] [facility]* Diagnosis Status post cataract extraction and insertion of intraocular lens of right eye- Primary Status post cataract extraction and insertion of intraocular lens of left eye documented in this encounter [facility] HospitalEval[facility] [place] noteNo assessment information availableWBucyrus Community Hospital Work Phone: Evaluation note* Diagnosis 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, without long-term current use of insulin (HCC)- Primary documented in this encounter [facility] [place] [facility]* Diagnosis 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, without long-term current use of insulin (HCC)- Primary documented in this encounter [facility] [place] [facility]* Diagnosis 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, without long-term current use of insulin (HCC) documented in this encounter [facility] [place] [facility]* Diagnosis Tributary (branch) retinal vein occlusion, [...] Regular astigmatism Presbyopia documented in this encounter [facility] [place] [facility]* Diagnosis 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 without macular edema, without long-term current use of insulin (HCC)- Primary [facility]* Diagnosis 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 without macular edema, without long-term current use of insulin (HCC) documented in this encounter [facility]* Diagnosis 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 without macular edema, without long-term current use of insulin (HCC) documented in this encounter [facility]* Diagnosis 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 without macular edema, without long-term current use of insulin (HCC) documented in this encounter [facility] HospitalHistory and physical note Author Milton Muñoz [facility] Note Date/Time March 13, 2025 7:1 0pm [facility] Medical Records Department [address] [place] [address] H&P Exam - Hospitalist 03/13/25 1839 MR#: [id number] Acct: [id number] Name: GABRIELA MEDINA Rep #:[id number] : 1950 74 From: Milton harper MD PCP: Dr. Donal Castle MD Status:ADM IN Location: [address] - General General Date of Admission: 03/13/25 HPI Narrative GABRIELA MEDINA, is a 74 F who presents [...] denies any nausea, or vomiting, or diarrhea. COUNT INCLUDES [facility] Medical History Congestive heart failure Hypothyroidism [...] (Auto) 79.2 H, Lymph % (Auto) 11.5L, Steele % (Auto) 7.8, Eos % (Auto) 0.6, [...] 159 H*, [place] II > [address] H 03/13/25 17:30: Troponin T Hi Sens 2 Hr 159 H*, Urine Color Yellow, Urine Clarity Cloudy, Urine pH 5.0, Ur Specific [place] 1.025, Urine Protein 100 H, Urine Glucose [...] with central vascular prominence and at least [id number] RIGHT pleural effusion. 2. RIGHT-sided airspace disease adjacent to the effusion may reflect compressiveatelectasis and/or pneumonia. Follow-up to radiographic resolution recommended. 3. Additional description as above. Reading Location: [facility] Assessment & Plan Assessment/Plan (1) Acute kidney [...] with colleagues Charges/Coding Visit Charges Inpatient E&M: 73646 Init Hosp L3 03/13/251909 <Electronically signed by Milton Muñoz MD> Cosigner Signature (if applicable): CC: Dr. Donal Castle MD; Dr. Milton Muñoz MD~ Signed [facility] Work Phone: History of Present [...] afterward. * Updated HEP this date. [facility] Work Phone: History of Present illness Narrative* Patient arrived in W/C and was wheeled into clinic by [employer] TAPE MACHINE TENDER. * Able to ambulate short distances with [...] STW was completed with decreased pain afterward. [facility] Work Phone: History of Present illness NarrativePatient identified by name and date of . Patient was able to progress with standing exercises this date she demonstrated quick fatigue. She required cues to slow down and maintain hold times. She presented with palpable tension in gluts that responded well to STW.[facility] Work Phone: History of Present illness Narrative* [...] all contraindications to e-stim use when questioned. [facility] Work Phone: History of Present illness Narrative* Patient has Mod antalgic gait when ambulating short distance from stepper to plinth approx 15 feet. * Guards with all transfers in clinic. * Tenderness along GT and glute during STW. * Could not progress strength this date d/t patient pain levels. [facility] Work Phone: History of Present illness NarrativePt [...] worsening pain and functional limits. GOals not met.[facility] Work Phone: History of Present illness Narrative* Arrived in W/C but used clinic owned FWW to ambulate in clinic but uses her own at home. * Discussed patient trying to achieve more upright posture during gait with FWW d/t observable slighttrunk flexion. * Reviewed HEP this date and progressed to 2 standing exercises. * Completed STW to R hip flexors d/t observable tightness. [facility] Work Phone: History of Present illness Narrative* Patient denied walking into the clinic from waiting are d/t fatigue this date. * Patient had difficulty with standing PRE's this date d/t fatigue. * Had increased hip flexion in stance phase with trunk flexion at the step. * Tightness with hip flexors with STW. [facility] Work Phone: History of Present illness Narrative* [...] STW. * Progressed HEP with new PRE's. [facility] Work Phone: History of Present illness Narrative* [...] during STW, that was relieved by STW. [facility] Work Phone: History of Present illness Narrative* [...] during STW, that was relieved by STW. [facility] Work Phone: History of Present illness Narrative* Pt reassessed this date by supervising PT with improvements noted in gait mechanics with pt able toambulate from parking lot to rehab gym with rollator this date (vs wheelchair at [facility]), improved MMT RLE as well as improving [...] to complete today's treatment with some difficulty. [facility] Work Phone: History of Present illness Narrative* [...] trunk. * Continue to ambulate with rollator. [facility] Work Phone: History of Present illness Narrative* [...] since she continues to ambulate with rollator. [facility] Work Phone: Hisdway of Present illness Narrative* Added slant board this date to help ease tightness in back of the leg. * Improved jeimy with gait with use of rollator. * Step ups were added to facilitate improved concentric and eccentric control. * Improved ability to complete PRE's and NMRE this date with decreased fatigue and needed * . [facility] Work Phone: history of Present illness Narrative* Added Airex to select standing PRE's. * Progressed time with SLS with patient needing external support d/t difficulty. * Observed improved jeimy and upright posture with gait with rollator. * Needed 2 seated rest breaks throughout session. [facility] Work Phone: Hisafsa of Present illness Narrative* Added Airex to staggered balance (N) * Added BOSU this date with running man and mini lunges for improved balance and safety for ADL's. * Observed patient ambulate 10 feet in clinic w/out any AD. [facility] Work Phone: history of Present illness Narrative* Pt reassessed this [...] to complete today's treatment with some difficulty. [facility] Work Phone: History of Present illness Narrative* [...] to complete today's treatment with some difficulty. [facility] Work Phone: History of Present illness NarrativePatient identified by name and date of . Patient required cues to increase with upright posture throughout treatment from fwd flexed. Patient required several standing rest breaks due to report of increased fatigue this date. She required cues to slow down with exercises and focus on eccentriccontrol.[facility] Work Phone: History of Present illness Narrative* [...] the direct supervision of Katiana Guzman PTA. [facility] Work Phone: History of Present illness Narrative* [...] direct supervision of Katiana Guzman PTA. [facility] Work Phone: reason for referral (narrative)No [facility] for [facility] Phone: Reason for visit Narrative* Initial Evaluation . R hip pain/OA. 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 Expl anation Advance Directive(s) 06/02/2018 12:38 PM Advance Directive Response Recorded Date/ Time Name of Medical Power of Home Appraiser Jamaal Medina November 19, 2022 8:03pm Living Will Yes November 19 8:03pm Power of Home Appraiser Yes November 19, 023 8:03pm Latest Code Status on File [...] Will Yes November 19 8:03pm Power of Home Appraiser Yes November 19, 023 8:03pm Advance Directive Response Recorded Date/ Time Living Will Yes October 18 8:42am Power of Home Appraiser Yes October 18, 2024 8:42am Name of Medical Power of Home Appraiser mike Yi October 18, 2024 8:42am Living Will No October 30, 024 7:27pm Power of Home Appraiser No October 30, 2024 7:27pm Advance Directive Response Recorded Date/ Time Do you have a Healthcare Power of Home Appraiser? No March 13, 2025 3:46pm Advance Directive Response Recorded Date/ Time Do you have a Healthcare Power of Home Appraiser? No March 13, 2025 7:56pm Medications Administered [...] 1430, Until Wed09/09/22 at 0229, Administer for applanation tonometry. In the event of a Fluress shortage, administer [place]-Fluor 1 drop into both eyes as directed [...] 1 Drop, BOTH EYES, DIRECTED, Starting on Janneth 10/01/22 at 1330, Until Wed10/02/22 at 0129, Administer [...] 1 Drop, LEFT EYE, DIRECTED, Starting on Janneth 12/03/22 at 1430, Until Wed12/04/22 at 0229, Administer for dilation, OPHT CLINIC MED ORDERS Given 12/03/2022 2:44 PM EST 1 Drop Active Administered Medications - up to 3 most recent administrations Medication Order MAR Action Action Date Dose Rate Site fluorescein-benoxinate 0.25-0.4 % 1 Drop (FLURESS) 1 Drop, BOTH EYES, DIRECTED, Starting on Wed12/23/22 at 1500, Until Janneth 12/24/22 at 0259, Administer for applanation tonometry. In [...] DIRECTED, Starting on Wed05/05/23 at 1430, Until Janneth 05/06/23 at 0229, Administer for applanation tonometry. In [...] 1 Drop, BOTH EYES, DIRECTED, Starting on Janneth 09/02/23 at 1300, Until Wed09/03/23 at 0059, Administer [...] 2:00pm NEED ORDER November 10, 2024 12:44pm [facility] 11/02 CHF December 01, 2024 1 0:15am E-ORDER December 01, 2024 1 1:21am CHF December 12, 2024 1 :46pm Reason for Visit Admit Date High cholesterol October 18, 2024 1 2:29am LV dysfunction October 18, 2024 1 2:29am Pulmonary hypertension October 18 12:29am Acute hypoxemic respiratory failure [facility]2023 12:29am JOSUE (acute kidney injury) October 18, [...] 2024 1 0:15am Chief Complaint Admit Date [facility] 11/02 CHF December 01, 2024 1 0:15am [...] 1:0 2pm 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 March 13, 2025 6:27pm Chief Complaint Admit Date [facility] 11/02 CHF December 01, 2024 1 0:15am [...] 2025 6:27pm 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 March 13, 2025 6:27pm Acute [...] 6:2 7pm 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 March 13, 2025 6:27pm Acute [...] March 15, 2025 10:24a m ABNORMAL LABS May 1st, 2025 10:56a m ABNORMAL LABS March 16, [...] 6:2 7pm 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 March 13, 2025 6:27pm Acute on chronic renal failure February 6:27pm Hyperkalemia March 13, 2025 6:2 7pm 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 March 13, 2025 6:27pm Other acute osteomyelitis, right ankle a nd foot March 13, 2025 6:27pm Right hallux osteomyelitis March 13, 2 025 6:27pm Pulmonary hypertension March 13, 2025 [...] section and content) DATE CREATED AUTHOR 05/10/2018 [facility] DATE CREATED AUTHOR AUTHOR'S ORGANIZ ATION 05/11/2018 [facility] DATE CREATED AUTHOR AUTHOR'S ORGANIZ ATION 11/29/2018 [facility] DATE CREATED AUTHOR AUTHOR'S ORGANIZ ATION 03/14/2019 [facility] DATE CREATED AUTHOR AUTHOR'S ORGANIZ ATION 01/06/2023 [facility] DATE CREATED AUTHOR AUTHOR'S ORGANIZ ATION 02/17/2023 [facility] DATE CREATED AUTHOR AUTHOR'S ORGANIZ ATION 08/17/2023 [facility] DATE CREATED AUTHOR AUTHOR'S ORGANIZ ATION 08/18/2023 [facility] DATE CREATED AUTHOR AUTHOR'S ORGANIZ ATION 10/02/2023 [facility] DATE CREATED AUTHOR AUTHOR'S ORGANIZ ATION 03/25/2025 [facility] DATE CREATED AUTHOR AUTHOR'S ORGANIZ ATION 06/04/2025 [facility] DATE CREATED AUTHOR AUTHOR'S ORGANIZ ATION 2025 [facility] Source Comments (unrecognize d section and content) In the event this informatio n is protected by the Federal Confidentiality of Alcohol and Drug Abuse Patient Records regulations: The Federal rules restrict any use of the information to criminally investigate or prosecute any alcohol or drug abuse patient.[facility] the event this information is protected by the Federal Confidentiality of Alcohol and Drug Abuse Patient Records regulations: The Federal rules restrict any use of the information to criminally investigate or prosecute any alcohol or drug abuse patient.[facility] HospitalIn the event this information is protected by the Federal Confidentiality of Alcohol and Drug Abuse Patient Records regulations: The Federal rules restrict any use of the information to criminally investigate or prosecute any alcohol or drug abuse patient.[facility] HospitalIn the event this information is protected by the Federal Confidentiality of Alcohol and Drug Abuse Patient Records regulations: The Federal rules restrict any use of the information to criminally investigate or prosecute any alcohol or drug abuse patient.[facility] HospitalIn the event this information is protected by the Federal Confidentiality of Alcohol and Drug Abuse Patient Records regulations: The Federal rules restrict any use of the information to criminally investigate or prosecute any alcohol or drug abuse patient.[facility] HospitalIn the event this information is protected by the Federal Confidentiality of Alcohol and Drug Abuse Patient Records regulations: The Federal rules restrict any use of the information to criminally investigate or prosecute any alcohol or drug abuse patient.[facility] HospitalIn the event this information is protected by the Federal Confidentiality of Alcohol and Drug Abuse Patient Records regulations: The Federal rules restrict any use of the information to criminally investigate or prosecute any alcohol or drug abuse patient.[facility] HospitalIn the event this information is protected by the Federal Confidentiality of Alcohol and Drug Abuse Patient Records regulations: The Federal rules restrict any use of the information to criminally investigate or prosecute any alcohol or drug abuse patient.[facility] HospitalIn the event this information is protected by the Federal Confidentiality of Alcohol and Drug Abuse Patient Records regulations: The Federal rules restrict any use of the information to criminally investigate or prosecute any alcohol or drug abuse patient.[facility] HospitalIn the event this information is protected by the Federal Confidentiality of Alcohol and Drug Abuse Patient Records regulations: The Federal rules restrict any use of the information to criminally investigate or prosecute any alcohol or drug abuse patient.[facility] HospitalIn the event this information is protected by the Federal Confidentiality of Alcohol and Drug Abuse Patient Records regulations: The Federal rules restrict any use of the information to criminally investigate or prosecute any alcohol or drug abuse patient.[facility] HospitalIn the event this information is protected by the Federal Confidentiality of Alcohol and Drug Abuse Patient Records regulations: The Federal rules restrict any use of the information to criminally investigate or prosecute any alcohol or drug abuse patient.[facility] HospitalIn the event this information is protected by the Federal Confidentiality of Alcohol and Drug Abuse Patient Records regulations: The Federal rules restrict any use of the information to criminally investigate or prosecute any alcohol or drug abuse patient.[facility] HospitalIn the event this information is protected by the Federal Confidentiality of Alcohol and Drug Abuse Patient Records regulations: The Federal rules restrict any use of the information to criminally investigate or prosecute any alcohol or drug abuse patient.[facility] HospitalIn the event this information is protected by the Federal Confidentiality of Alcohol and Drug Abuse Patient Records regulations: The Federal rules restrict any use of the information to criminally investigate or prosecute any alcohol or drug abuse patient.[facility] HospitalIn the event this information is protected by the Federal Confidentiality of Alcohol and Drug Abuse Patient Records regulations: The Federal rules restrict any use of the information to criminally investigate or prosecute any alcohol or drug abuse patient.[facility] HospitalIn the event this information is protected by the Federal Confidentiality of Alcohol and Drug Abuse Patient Records regulations: The Federal rules restrict any use of the information to criminally investigate or prosecute any alcohol or drug abuse patient.[facility] HospitalIn the event this information is protected by the Federal Confidentiality of Alcohol and Drug Abuse Patient Records regulations: The Federal rules restrict any use of the information to criminally investigate or prosecute any alcohol or drug abuse patient.[facility] HospitalIn the event this information is protected by the Federal Confidentiality of Alcohol and Drug Abuse Patient Records regulations: The Federal rules restrict any use of the information to criminally investigate or prosecute any alcohol or drug abuse patient.[facility] HospitalIn the event this information is protected by the Federal Confidentiality of Alcohol and Drug Abuse Patient Records regulations: The Federal rules restrict any use of the information to criminally investigate or prosecute any alcohol or drug abuse patient.[facility] HospitalIn the event this information is protected by the Federal Confidentiality of Alcohol and Drug Abuse Patient Records regulations: The Federal rules restrict any use of the information to criminally investigate or prosecute any alcohol or drug abuse patient.[facility] HospitalIn the event this information is protected by the Federal Confidentiality of Alcohol and Drug Abuse Patient Records regulations: The Federal rules restrict any use of the information to criminally investigate or prosecute any alcohol or drug abuse patient.[facility] Reason for Visit (unrecogniz ed section and content) Reason Comments Branch Retinal Vein Occlusion Follow Up Nonproliferative Diabetic Retinopathy Fo llow Up Specialty Diagnoses / Procedures Referred By Len t Referred To Contact Ophthalmology / OPHTHALMOLOGY Diagnoses Type 2 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, right eye STI AVASTIN RE Procedures [place] BEVACIZUMAB INJECTION INJECTION Axel Chriinos MD, PhD [address] [id number] Aime Gamboa MD [address] [place] [address] Referral ID Status Reason Start Date Expiration Date V isits Requested Visits Authorized [id number] Authorized 08/24/2024 11/22/2024 99 99 Reason Comments [...] age-related cataract of left eye [H25.812] Procedures [place] XCAPSL CTRC RMVL INSJ IO LENS PROSTH W/O ECP CATARACT EXTRACTION W/IOL IMPLANT L EYE Ivan Baxter MD [address] [facility] [place] [address] [facility] [address] [place] [phone] Referral ID Status Reason Start Date Expiration Date Visits Re quested Visits Authorized [id number] 1 1 Reason Comments Post-op Cataract OS [...] age-related cataract of right eye [H25.811] Procedures [place] XCAPSL CTRC RMVL INSJ IO LENS PROSTH W/O ECP Phacoemulsification Cataract with Insertion Intraocular Lens Ivan Baxter MD [facility] [place] [id number] [facility] [address] [place] [phone] Referral ID Status Reason Start Date Expiration Date Visits Re quested Visits Authorized [id number] 1 1 Reason Comments Post-op Cataract OD [...] Specialty Diagnoses / Procedures Referred By Len t Referred To Contact Ophthalmology / OPHTHALMOLOGY Diagnoses Type 2 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, right eye STI avastin OD/ OCT- okay to overbook at 9:15 Procedures [place] BEVACIZUMAB INJECTION INJECTION Axel Chirinos MD, PhD [place] [id number] Axel Chirinos MD, PhD [address] [place] [address] Referral ID Status Reason Start Date Expiration Date V isits Requested Visits Authorized [id number] Authorized 11/16/2024 11/14/2025 99 99 Reason Comments Branch Retinal Vein Occlusion Right eye Specialty Diagnoses / Procedures Referred By Len matson Referred To Contact Ophthalmology / OPHTHALMOLOGY Diagnoses Type 2 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, right eye STI avastin OD/ OCT- okay to overbook at 9:15 Procedures [place] BEVACIZUMAB INJECTION INJECTION Axel Chirinos MD, [place] [address] Phone: tel: Axel Chirinos MD, PhD [address] [place] [address] Phone: tel:[phone] fax:[phone] Reason Comments Branch Retinal Vein Occlusion Follow Up Specialty Diagnoses / Procedures Referred By Len matson Referred To Contact Ophthalmology / OPHTHALMOLOGY Diagnoses Type 2 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, right eye (HCC) STI avastin OD/ OCT- okay to overbook at 9:15 Procedures [place] BEVACIZUMAB INJECTION INJECTION Axel Chirinos MD, PhD [address] [place] [address] Phone: tel: Axel Chirinos MD, PhD [address] [place] [address] Phone: tel:[phone] fax:[phone] Care Teams (unrecognized sec tion and content) Steel Plate Printer Relationship Specialty Start Date End Date Girish Simon PCP - General Family Practice 12/11/11 Yasmeen López MD Primary Staff Physician Cardiology 01/31/19 Steel Plate Printer Relationship Specialty Start Date End Date Girish Simon PCP - General Family Medicine 12/11/11 Yasmeen López MD Primary Staff Physician Cardiology 01/31/19 Steel Plate Printer Relationship Specialty Start Date End Date Girish Simon PCP - General Family Medicine 12/11/11 Yasmeen López MD Primary Staff Physician Cardiology 01/31/19 Steel Plate Printer Relationship Specialty Start Date End Date Girish Simon PCP - General Family Medicine 12/11/11 Yasmeen López MD Primary Staff Physician Cardiology 01/31/19 Steel Plate Printer Relationship Specialty Start Date End Date Girish Simon PCP - General Family Medicine 12/11/11 Yasmeen López MD Primary Staff Physician Cardiology 01/31/19 Steel Plate Printer Relationship Specialty Start Date End Date Girish Simon PCP - General Family Medicine 12/11/11 Yasmeen López MD Primary Staff Physician Cardiology 01/31/19 Steel Plate Printer Relationship Specialty Start Date End Date Girish Simon PCP - General Family Medicine 12/11/11 Yasmeen López MD Primary Staff Physician Cardiology 01/31/19 Steel Plate Printer Relationship Specialty Start Date End Date Girish Simon MD PCP - General Family Medicine 12/11/11 Yasmeen López MD Primary Staff Physician Cardiology 01/31/19 Steel Plate Printer Relationship Specialty Start Date End Date Girish Simon MD [address] [place] [address] PCP - General 10/02/19 Steel Plate Printer Relationship Specialty Start Date End Date Girish Simon MD PCP - General Family Medicine 12/11/11 Yasmeen López MD Primary Staff Physician Cardiology 01/31/19 Steel Plate Printer Relationship Specialty Start Date End Date Girish Simon MD PCP - General Family Medicine 12/11/11 Yasmeen López MD Primary Staff Physician Cardiology 01/31/19 Steel Plate Printer Relationship Specialty Start Date End Date Girish Simon MD PCP - General Family Medicine 12/11/11 Yasmeen López MD Primary Staff Physician Cardiology 01/31/19 Steel Plate Printer Relationship Specialty Start Date End Date Girish Simon MD [address] [place] [id number] PCP - General 10/02/19 Steel Plate Printer Relationship Specialty Start Date End Date Girish Simon MD PCP - General Family Medicine 12/11/11 Yasmeen López MD Primary Staff Physician Cardiology 01/31/19 Sarah Reilly II, OD [address] [place] [address] Referring Optometry 10/01/23 Steel Plate Printer Relationship Specialty Start Date End Date Donal [place] MD [address] [place], [place] [address] PCP - General Internal Medicine 10/13/23 Yasmeen López MD Primary Staff Physician Cardiology 01/31/19 Sarah Reilly II, OD [address] [place] [address] Referring Optometry 10/01/23 Steel Plate Printer Relationship Specialty Start Date End Date Donal [place] MD [address] [place], [place] [id number] PCP - General Internal Medicine 10/13/23 Yasmeen López MD Primary Staff Physician Cardiology 01/31/19 Sarah Reilly II, OD [address] [place] [address] Referring Optometry 10/01/23 Team Status: Active Member Role Status Dates Dr. Girish Simon MD Family Provider Active Donal [place] MD Primary Care Provider Active Team Status: Inactive Member Role Status Dates Donal [place] MD Primary Care Provider, Attending Prov ider Active Steel Plate Printer Relationship Specialty Start Date End Date Donal [place] MD [address] [place], [place] [id number] PCP - General Internal Medicine 10/13/23 Yasmeen López MD Primary Staff Physician Cardiology 01/31/19 Sarah Reilly II, OD [address] [place] [address] Referring Optometry 10/01/23 Steel Plate Printer Relationship Specialty Start Date End Date Donal [place] MD [address] [place] [address] PCP - General Internal Medicine 10/13/23 Yasmeen López MD Primary Staff Physician Cardiology 01/31/19 Sarah Reilly II, OD [address] [place] [address] Referring Optometry 10/01/23 Steel Plate Printer Relationship Specialty Start Date End Date Donal [place] MD [address] [place] [address] PCP - General Internal Medicine 10/13/23 Yasmeen López MD Primary Staff Physician Cardiology 01/31/19 Sarah Reilly II, OD [address] [place] [address] Referring Optometry 10/01/23 Steel Plate Printer Relationship Specialty Start Date End Date Donal [place] MD [address] [place] [address] PCP - General Internal Medicine 10/13/23 Yasmeen López MD Primary Staff Physician Cardiology 01/31/19 Sarah Reilly II, OD [address] [place] [address] Referring Optometry 10/01/23 Steel Plate Printer Relationship Specialty Start Date End Date Donal [place] MD [facility] [address] [place] [address] PCP - General Internal Medicine 10/13/23 Yasmeen López MD Primary Staff Physician Cardiology 01/31/19 Sarah Reilly II, OD [address] [place] [id number] Referring Optometry 10/01/23 Team Status: Inactive Member Role Status Dates [...] 2024 End: October 21, 2024 Man Lainez [employer], [employer] Other Provider Active Start : October 18, 2024 End: October 21, 2024 Janene Renner PA, PA Other Provider Active Start: October 18, 2024 End: October 21, 2024 Dr. Seth Garnica , Attending Provider Active Start: October 18, 2024 [...] Active Start: October 18, 2024 Man Lainez [employer], [employer] Other Provider Active Start : October 18, [...] t: October 18, 2024 Dr. Clarence Goodwin , Other Provider Active St art: October 18, 2024 Dr. Vincent Santamaria MD Other Provider Active Start: October 18, 2024 Dr. Len Dial DO Other Provider Active Start: October 18, [...] Active Start: October 19, 2024 Man Lainez [employer], [employer] Other Provider Active Start : October 19, [...] t: October 19, 2024 Dr. Clarence Goodwin DO Other Provider Active St art: October 19, [...] Active Start: October 19, 2024 Man Lainez [employer], [employer] Other Provider Active Start : October 19, [...] October 19, 2024 Dr. Clarence Goodwin , DO Other Provider Active St art: October 19, [...] October 20, 2024 Dr. Girish Campos DO Admit Provider Active Start: October 20, [...] Active Start: October 20, 2024 Man Lainez [employer], [employer] Other Provider Active Start : October 20, 2024 Janene Renner PA, PA Other Provider Active Start: October 20, 2024 Team Status: Active Member Role Status Dates Donal Castle MD Primary Care Provider Active St art: October 21, 2024 Dr. Lucas Cui , Emergency Provider Active Start: October 21, 2024 Dr. Girish Campos DO Admit Provider Active Start: October 21, 2024 Dr. Girish Campos , Other Provider Active Start: October 21, 2024 [...] Active Start: October 21, 2024 Man Lainez [employer], [employer] Other Provider Active Start : October 21, 2024 Janene BOATENG, PA Other Provider Active Start: October 21, [...] End: November 02, 2024 Dr. Fitz Deleon , Emergency Provider Active Start: October 30, 2024 [...] January 11, 2025 End: January 11, 2025 Steel [employer] Printer Relationship Specialty Start Date End Date Donal Castle MD Saeed Wheeler [address] [place] [address] PCP - General Internal Medicine 10/13/23 Yasmeen López MD Primary Staff Physician Cardiology 01/31/19 Sarah Reilly II, OD [address] [place] [address] Referring Optometry 10/01/23 Team Status: Active Member [...] Active St art: March 12, 2025 TASNEEM Mie Attending Provider Active St art: March 12, [...] 2025 End: March 23, 2025 Dr. Lorraine Gupta MD Other Provider Active Start: March 13, 2025 End: March 23, 2025 Dr. Lucas Coronado DPM Other Provider Active S tart: March 13, [...] Active Start: March 14, 2025 Dr. Lorraine Gupta MD Other Provider Active Start: March 14, [...] Active Start: March 14, 2025 Dr. Lorraine Gupta MD Other Provider Active Start: March 14, [...] Active Start: March 15, 2025 Dr. Lorraine Gupta MD Other Provider Active Start: March 15, 2025 Dr. Seth Garnica , Attending Provider Active Start: March 15, 2025 Dr. Seth Garnica , DO Other Provider Active Start: March 15, 2025 Dr. Joao Francois MD Other Provider Active Sta rt: March 15, 2025 Team Status: Active Member Role Status Dates Donal Castle MD Primary Care Provider Active St art: March 15, 2025 Dr. Fitz Deleon , Emergency Provider Active Start: March 15, 2025 Dr. Milton Muñoz MD Admit Provider Active Start: March 15, 2025 Dr. Milton Muñoz MD Other Provider Active Start: March 15, 2025 Dr. Bandar Linares MD Other Provider Active Start: March 15, 2025 Dr. Lorraine Gupta MD Other Provider Active Start: March 15, [...] Active Start: March 16, 2025 Dr. Lorraine Gupta MD Other Provider Active Start: March 16, 2025 Dr. Seth Garinca DO Attending Provider Active Start: March 16, [...] Active Start: March 16, 2025 Dr. Lorraine Gupta MD Other Provider Active Start: March 16, [...] Active Start: March 17, 2025 Dr. Lorraine Gupta MD Other Provider Active Start: March 17, [...] Active Start: March 17, 2025 Dr. Lorraine Gupta MD Other Provider Active Start: March 17, 2025 Dr. Steh Ganrica DO Attending Provider Active Start: March 17, [...] Active Start: March 18, 2025 Dr. Lorraine Gupta MD Other Provider Active Start: March 18, 2025 Dr. Seth Garnica DO Attending Provider Active Start: March 18, 2025 Dr. Seth Garnica DO Other Provider Active Start: March 18, 2025 Dr. Joao Francois MD Other Provider Active Sta rt: March 18, 2025 Dr. Lucas Coronado DPM Other Provider Active S tart: March 18, 2025 Team Status: Active Member Role Status Dates Donal Castle MD Primary Care Provider Active St art: March 19, 2025 Dr. Fitz Deleon , Emergency Provider Active Start: March 19, 2025 Dr. Milton Muñoz MD Admit Provider Active Start: March 19, 2025 Dr. Milton Muñoz MD Other Provider Active Start: March 19, 2025 Dr. Bandar Linares MD Other Provider Active Start: March 19, 2025 Dr. Lorraine Gupta MD Other Provider Active Start: March 19, [...] March 20, 2025 Dr. Seth Garnica , Other Provider Active Start: March 20, 2025 Dr. Bandar Linares MD Other Provider Active Start: March 20, 2025 Dr. Joao Francois MD Other Provider Active Sta rt: March 20, 2025 Dr. Lorraine Gupta MD Other Provider Active Start: March 20, [...] March 21, 2025 Dr. Fitz Deleon , DO Emergency Provider Active Start: March 21, [...] Sta rt: March 21, 2025 Dr. Lorraine Gupta MD Other Provider Active Start: March 21, [...] Sta rt: March 22, 2025 Dr. Lorraine Gupta MD Other Provider Active Start: March 22, [...] art: March 23, 2025 Dr. Fitz Deleon DO Emergency Provider Active Start: March 23, 2025 [...] Sta rt: March 23, 2025 Dr. Lorraine Gupta MD Other Provider Active Start: March 23, 2025 Dr. Lucas Coronado , DPM Other Provider Active S tart: March [...] Active Team Status: Inactive Member Role/Relationship Status Wes Castle MD Primary Care Provider Active St art: March 12, 2025 End: March 12, 2025 Donal Castle MD Referring Provider Active Start : March 12, 2025 End: March 12, 2025 TASNEEM Mei Attending Provider Active St art: March 12, 2025 End: March 12, 2025 Team Status: Inactive Member Role/Relationship Status Wes Castle MD Primary Care Provider Active St art: March 12, 2025 End: March 12, 2025 TASNEEM Mei Attending Provider Active St art: March 12, 2025 End: March 12, 2025 TASNEEM Mei Referring Provider Active St art: March 12, 2025 End: March 12, 2025 Team Status: Inactive Member Role/Relationship Status Wes Castle MD Primary [...] End: March 23, 2025 Dr. Seth Garnica , Other Provider Active Start: March 13, 2025 End: March 23, 2025 Dr. Bandar Linares MD Other Provider Active Start: March 13, 2025 End: March 23, 2025 Dr. Joao Francois MD Other Provider Active Sta rt: March 13, 2025 End: March 23, 2025 Dr. Lorraine Gupta MD Other Provider Active Start: March 13, 2025 End: March 23, 2025 Dr. Lucas Coronado DPM Other Provider Active S tart: March 13, [...] Active Start: March 14, 2025 Dr. Lorraine Gupta MD Other Provider Active Start: March 14, 2025 Dr. Seth Garnica , Other Provider Active Start: March 14, 2025 Dr. Ramone Adams MD Attending Provider Active S tart: March 14, 2025 Team Status: Active Member Role/Relationship Status Dates Donal Castle MD Primary Care Provider Active St art: March 14, 2025 Dr. Fitz Deleon , Emergency Provider Active Start: March 14, 2025 Dr. Milton Muñoz MD Admit Provider Active Start: March 14, 2025 Dr. Milton Muñoz MD Other Provider Active Start: March 14, 2025 Dr. Bandar Linares MD Other Provider Active Start: March 14, 2025 Dr. Lorraine Gupta MD Other Provider Active Start: March 14, [...] Active Start: March 15, 2025 Dr. Lorraine Gupta MD Other Provider Active Start: March 15, [...] Active Start: March 15, 2025 Dr. Lorraine Gupta MD Other Provider Active Start: March 15, [...] Active Start: March 16, 2025 Dr. Lorraine Gupta MD Other Provider Active Start: March 16, 2025 Dr. Seth Garnica DO Attending Provider Active Start: March 16, 2025 Dr. Seth Garnica DO Other Provider Active Start: March 16, 2025 Dr. Joao Francois MD Other Provider Active Sta rt: March 16, 2025 Dr. Lucas Coronado , TAVO Other Provider Active S tart: March 16, [...] Active Start: March 16, 2025 Dr. Lorraine Gupta MD Other Provider Active Start: March 16, [...] Active Start: March 17, 2025 Dr. Lorraine Gupta MD Other Provider Active Start: March 17, [...] Active Start: March 17, 2025 Dr. Lorraine Gupta MD Other Provider Active Start: March 17, 2025 Dr. Seth Garnica , DO Attending Provider Active Start: March 17, 2025 Dr. Seth Garnica , DO Other Provider Active Start: March 17, 2025 Dr. Joao Francois MD Other Provider Active Sta rt: March 17, 2025 Dr. Lucas Coronado DPM Other Provider Active S tart: March 17, 2025 Team Status: Active Member Role/Relationship Status Dates Donal Castle MD Primary Care Provider Active St art: March 18, 2025 Dr. Fitz Deleon , DO Emergency Provider Active Start: March 18, 2025 Dr. Milton Muñoz MD Admit Provider Active Start: March 18, 2025 Dr. Milton Muñoz MD Other Provider Active Start: March 18, 2025 Dr. Bandar Linares MD Other Provider Active Start: March 18, 2025 Dr. Lorraine Gupta MD Other Provider Active Start: March 18, 2025 Dr. Seth Garnica DO Attending Provider Active Start: March 18, [...] Active Start: March 19, 2025 Dr. Lorraine Gupta MD Other Provider Active Start: March 19, [...] March 20, 2025 Dr. Fitz Deleon , Emergency Provider Active Start: March 20, 2025 Dr. Milton Muñoz MD Admit Provider Active Start: March 20, 2025 Dr. Milton Muñoz MD Other Provider Active Start: March 20, 2025 Dr. Seth Garnica , Other Provider Active Start: March 20, 2025 Dr. Bandar Linares MD Other Provider Active Start: March 20, 2025 Dr. Joao Francois MD Other Provider Active Sta rt: March 20, 2025 Dr. Lorraine Gupta MD Other Provider Active Start: March 20, [...] Sta rt: March 21, 2025 Dr. Lorraine Gupta MD Other Provider Active Start: March 21, [...] art: March 22, 2025 Dr. Fitz Deleon , DO Emergency Provider Active Start: March 22, [...] Sta rt: March 22, 2025 Dr. Lorraine Gupta MD Other Provider Active Start: March 22, [...] art: March 23, 2025 Dr. Fitz Deleon DO Emergency Provider Active Start: March 23, 2025 [...] Sta rt: March 23, 2025 Dr. Lorraine Gupta MD Other Provider Active Start: March 23, 2025 Dr. Lucas Coronado DPM Other Provider Active S tart: March 23, 2025 Dr. Fitz Ryan DO Attending Provider Active Start: March 23, 2025 Dr. 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 Relationship Specialty Start Date End Date Donal Castle MD [address] [place] [address] [address] [place] [address] PCP - General Internal Medicine 10/13/23 Yasmeen López MD Primary Staff Physician Cardiology 01/31/19 Sarah Reilly II, OD [address] [place] [address] Referring Optometry 10/01/23 Scheduled Active and Recently Administ ered Medications (unrecognized section and content) Medication Order 08/24/2023 08/25/2023 08/26/2023 ketorolac (Acular) 0.5 % ophthalmic solution 1 drop (COMPLETED) 1 drop, Left Eye, Every 5 min, First dose on Janneth 08/26/23 at 1100, For 4 doses, Preprocedure 1105 (Given - Provid er: Janeen Walton RN)1117 (Given - Provider: Janene Walton [...] BE BASED ON THE PRIMARY CLINICAL RECORDS. [facility] provides no warranty or guarantee of the accuracy or completeness of information in this document.
--- NOTE | 2025-06-25 05:44 | PCM.HOSP.N ---
Hospitalist Note Patient becoming more lethargic, still arousable but more fatigued. Difficulty currently obtaining BP despite judicious IVFs. LA returned 2.9. Attempted to update family about patient status, VM left with . Will transition patient to the ICU, initiate NEP given high risk for aggressive IVFs, initiate BSA with IV vanc and zosyn given unclear etiology for current presentation but currently concern for shock, undifferentiated, Bld Cx already ordered per ED, still no marked UOP but requested UA, UCx via catheterization. No recent marked cough/congestion/URI sxs, no recent N/V/D. Will review case with environmental health and safety manager for additional recommendations/care plan.
--- NOTE | 2025-06-25 05:55 | ECHOD_ITS ---
Reason For Study Reason For Study: PAF Procedure This was a 2D Doppler, Color Flow transthoracic echocardiogram. Exam performed portable in ICU/CCU. Left Ventricle Normal LV size. Moderate concentric left ventricular hypertrophy. The left ventricular ejection fraction is 20 %. There is severe global hypokinesis of the left ventricle. Right Ventricle Moderately dilated right ventricle. Moderately severe global right ventricular systolic dysfunction. Atria Normal left atrium. Normal right atrium. Mitral Valve Normal mitral valve. Tricuspid Valve Normal tricuspid valve. Moderately severe (3+) tricuspid valve insufficiency. Pulmonary artery systolic pressure is 64 mmHg. Moderate pulmonary hypertension. Aortic Valve Trisinus/trileaflet aortic valve. Pulmonic Valve Normal pulmonic valve. Great Vessels Normal aortic root. The pulmonary artery is normal size. The inferior vena cava is dilated. Pericardium/Pleural No pericardial effusion. MMode/2D Measurements & Calculations LVIDd: 5.2 cm IVSd: 1.5 cm LVOT diam: 2.0 cm LVIDs: 4.3 cm LVPWd: 1.7 cm LVOT area: 3.2 cm2 FS: 17.9 % LAV(MOD-bp): 50.7 ml LVAd ap4: 29.4 cm2 SV(MOD-sp4): 22.3 ml LAV(MOD-bp) Indexed: 27.4 ml/m2 LVLd ap4: 7.6 cm SI(MOD-sp4): 12.0 ml/m2 LAV(MOD-sp2): 33.3 ml EDV(MOD-sp4): 98.7 ml LAV(MOD-sp4): 48.7 ml EDV(sp4-el): 97.1 ml LVAs ap4: 25.4 cm2 LVLs ap4: 7.3 cm ESV(MOD-sp4): 76.5 ml ESV(sp4-el): 75.4 ml EF(MOD-sp4): 22.5 % EF(sp4-el): 22.4 % SV(sp4-el): 21.7 ml LA A4 area: 18.7 cm2 LA dimension(2D): 4.3 cm RA A4 area: 18.8 cm2 Doppler Measurements & Calculations MV E max aster: 79.7 cm/sec Ao V2 max: 184.8 cm/sec LV V1 max: 145.4 cm/sec Ao max P.1 mmHg LV V1 max P.6 mmHg Ao V2 mean: 133.0 cm/sec LV V1 mean P.3 mmHg Ao mean P.3 mmHg LV V1 mean: 106.5 cm/sec Ao V2 VTI: 26.8 cm LV V1 VTI: 24.4 cm AV (velocity ratio): 0.91 SUNIL(I,D): 2.9 cm2 SUNIL(V,D): 2.5 cm2 SV(LVOT): 77.1 ml PA V2 max: 113.1 cm/sec TR max aster: 381.7 cm/sec PA V2 mean: 76.9 cm/sec TR max P.3 mmHg ECHO/Echo Complete Interpretation Summary The left ventricular ejection fraction is 20 %. Normal LV size. Moderate concentric left ventricular hypertrophy. Moderately severe global right ventricular systolic dysfunction. Pulmonary artery systolic pressure is 64 mmHg. Ordering Physician: Ana Chambers Referring Physician: BRITTANI WILL Performed By: Rimma Jolly RCS
[2025-06-25 06:04] LABS: Reflex Lactate? Y
[2025-06-25] MEDS: Norepinephrine 8 MG in 0.9% Normal Saline (250mL Bag) 242 ML 9.4 MG CONT INF (06:30)
--- NOTE | 2025-06-25 06:39 | PCM.HOSP.N ---
Hospitalist Note Intubation Note: Patient with evidence of respiratory and/or impending distress. Medications administered: Etomidate 20 mg IV x 1, Versed 4 mg IV x 1 ETT size: 7.5 Patient intubated in standard fashion with visualization of the vocal cords and passage of the ETT. Positioning verified with auscultation. Post-intubation CXR requested. Additionally OG placed and abdominal film will be requested as well. Unfortunately several difficulties attempting ABG, VBG eventually obtained. Also given dialysis status requesting PICC line given already access in the right neck preferentially would like to avoid placing access in the left neck in case it is needed in the future for dialysis, awaiting to hear back timeline. Discussed patient current status with Dr. Mcfarland. Procedures Hospitalists Procedures: [id number] Insert Emergency Airway
[2025-06-25] MEDS: Midazolam 2 MG/2 ML Syringe 4 MG IV (06:46)
[2025-06-25 06:50] LABS: FI02 100.0; PEEP 6; PIP 14; SITE Not entered; VBG BASE EXCESS -7 mmol/L (-1.0-3.5); VBG PO2 22 mmHg (25-40); VBG SO2 23 % (50-70); VBG TCO2 25 mmol/L (23-33)
--- NOTE | 2025-06-25 07:10 | RAD_ITS ---
PROCEDURE: CHEST 1 VIEW (PORTABLE) 06/25/2025 REASON FOR EXAM: TO CONFIRM ET PLACEMENT TECHNIQUE: Frontal view of the chest. COMPARISON: March 16, 2025 FINDINGS: There is an ET tube in position with its tip 4.2 cm above the level of the jimi. There is a central line on the right with its tip centrally located. There is an enteric tube seen with its tip below the field of view of this exam. There is cardiomegaly with mild central vascular congestion. There is moderate right effusion, improved. There is infiltrate throughout the right lung with consolidation at the right base. There is no visible pneumothorax. There is no visible acute bony abnormality. RAD/Chest 1 View (Portable) IMPRESSION: Tubes and lines in position. There is cardiomegaly with mild central vascular congestion. There is moderate right effusion, improved. There is infiltrate throughout the right lung with consolidation at the right b ase. Reading Location: [facility]
[2025-06-25 07:13] LABS: Hematocrit 38.9 % (37-47); Hemoglobin 12.3 g/dL (12.0-15.0); Immature Granulocytes Count 0.290 X10^3/uL (0.0-0.0); Mean Corp Hgb Conc 31.6 g/dL (32-36); Mean Corpuscular Volume 94.0 fL (81-99); Mean Platelet Vol. 10.6 fl (6.2-12.0); NRBC Flagged by Analyzer 1.6 % (0-5); Platelet Count 208 K/mm3 (150-450); RBC Distribution Width CV 16.9 % (11.6-14.6); RBC Distribution Width SD 57.9 fl (35.1-43.9); Red Blood Count 4.14 M/mm3 (4.2-5.4); White Blood Count 16.3 K/mm3 (4.4-11.0)
--- NOTE | 2025-06-25 07:39 | NURSING ---
Dr. Mcfarland and Gualberto RN at pt bedside attempting to place Central line cath. One unsuccessful attempt to right neck. Dr. Mcfarland now attempting to place central line to right groin. Successful line placement to right groin on first attempt.
[2025-06-25 07:41] LABS: Ammonia 25.7 umol/L (11-51)
--- NOTE | 2025-06-25 08:02 | EX.PCM.CONCC ---
Assessment & Plan Assessment/Plan (1) Acute hypoxemic respiratory failure: (2) Acute HFrEF (heart failure with reduced ejection fraction): (3) Aortic valve stenosis: QUALIFIERS: Cardiac valve disease etiology: nonrheumatic Qualified Code(s): I35.0 - Nonrheumatic aortic (valve) stenosis (4) Septic shock: PLAN: Plan RECOMMENDATIONS: 1. Vasopressor support to maintain mean arterial pressure at or above 65 mmHg. 2. Empiric antimicrobials. 3. Follow-up echocardiogram. 4. Initiate stress dose steroids. 5. Appropriate ICU prophylaxis. 6. Obtain follow-up arterial blood gas. IMPRESSIONS: 1. Acute hypoxemic respiratory failure The patient was ultimately intubated on June 25 in the setting of encephalopathy and respiratory failure, with concern for underlying pneumonia versus decompensated heart failure contributing. The patient will be maintained on assist-control mode of mechanical ventilation. FiO2 and PEEP will be weaned as tolerated. The patient will be maintained on appropriate broad-spectrum antimicrobials, pending infectious workup. Will obtain follow-up ABG. 2. Undifferentiated shock Clinical considerations include sepsis secondary to underlying pneumonia versus cardiogenic with known history of cardiomyopathy. At this time, hold off on additional fluid resuscitation, given her underlying heart failure and end-stage renal disease. The patient will be continued on vasopressor support to maintain mean arterial pressure at or above 65 mmHg. Stress dose steroids will be initiated. Will plan to continue empiric broad-spectrum antimicrobials, pending infectious workup. Repeat echocardiogram is currently pending. 3. Encephalopathy Most likely toxic/metabolic in etiology. Initial CT head was unremarkable. TSH is within normal limits. Continue supportive measures as noted above. 4. End-stage renal disease on hemodialysis Consultation placed to nephrology to assist with hemodialysis management. 5. Valvular heart disease/diabetes mellitus/hypertension/hyperlipidemia/anemia/hypothyroidism Complicates care, management, recovery and prognosis. Continue to hold home antihypertensives. Continue Synthroid as ordered. Continue Accu-Cheks and sliding scale insulin coverage. As noted above, repeat echocardiogram is pending. TIME: 38 minutes of critical care time, independent of procedures, was spent addressing the patient's acute hypoxemic respiratory failure, undifferentiated shock, encephalopathy, end-stage renal disease on hemodialysis, review of all data and collaboration with the care team. HPI Consult Data Date of Consult: 06/25/25 HPI Narrative Reason for Consultation: Septic shock, acute respiratory failure HPI Narrative: The patient is a 75-year-old female, with a history as outlined below, who presented to the emergency department on June 25 with altered mental status and recent fall. The patient has a known history of congestive heart failure, hypertension, hyperlipidemia, valvular heart disease, end-stage renal disease on hemodialysis, hypothyroidism and diabetes mellitus. History pertinent to her hospitalization was obtained primarily via chart review, as the patient is currently intubated and mechanically ventilated. According to documentation, the patient presented after being found by her spouse in an altered state on the bathroom floor after apparently falling from the toilet. The patient apparently received her last dialysis session on Wednesday. The patient was hospitalized in February and March for acute renal failure and congestive heart failure. She ultimately underwent tunneled dialysis catheter placement and was initiated at that time on hemodialysis for fluid management. She was also noted to have osteomyelitis of her great toe which was amputated in March 2025. On presentation to the emergency department, the patient was initially noted to be afebrile and hemodynamically stable. She was hypoxemic with an oxygen saturation of 81% on room air. Laboratory evaluation was notable for a white blood cell count of 21,000. Chemistry profile was notable for a chloride of 91, anion gap of 18 and creatinine of 9.45. Lactate was elevated at 2.8. Troponin was increased at 97. AST and ALT were mildly increased at 66 and 53, respectively. CT head was unremarkable. Cervical spine CT demonstrated no fracture or dislocation. CTA chest demonstrated no evidence for pulmonary embolism. There was evidence of a right-sided effusion with compressive atelectasis. CT imaging the abdomen demonstrated cirrhotic liver morphology. In the emergency department, the patient received 1 L of normal saline and was subsequently placed on antimicrobials. She was admitted to the progressive care unit for further management. While the patient was initially stable, early this morning, the patient became increasingly lethargic with fluid refractory hypotension. She was subsequently transferred to the medical intensive care unit. Due to the patient's profound encephalopathy, the decision was made to proceed with intubation. She was placed on vasopressor support over concerns for volume overload in the setting of heart failure with reduced ejection fraction and end-stage renal disease. Upon my initial evaluation of the patient, she was already intubated and mechanically ventilated. An initial attempt was made to place a central line in her IJ, which was unsuccessful due to the inability to thread the guidewire. Therefore, a central line was subsequently placed in the right femoral vein. The patient has been ordered to receive vancomycin and Zosyn. Nephrology consultation was placed. [facility] Medical History Aortic valve stenosis Congestive heart failure Hypertension Type 2 diabetes mellitus with diabetic polyneuropathy Pulmonary hypertension LV dysfunction MRSA (methicillin resistant staph aureus) culture positive Hypothyroidism Osteoporosis Morbid obesity with BMI of 45.0-49.9, adult Wears glasses Post-menopausal Thyroid disease Diabetes Uses wheelchair Ambulates with cane Arthritis High cholesterol Back pain TIA (transient ischemic attack) Dietary restriction Non-smoker History of pain when walking History of transesophageal echocardiography (DESTIN) Cardiology follow-up encounter Diabetes Home Medications ?Medication ?Instructions ?Recorded ?Last Taken ?Type atorvastatin 10 mg tablet 10 mg PO QHS cholesterol 08/31/22 03/12/25 History aspirin 81 mg chewable tablet 81 mg PO DAILYCM 90 days #90 tabs 10/21/24 03/13/25 Rx carvedilol 6.25 mg tablet (Coreg) 6.25 mg PO BID #60 tabs 12/01/24 03/13/25 Rx furosemide 40 mg tablet 40 mg PO QAM #30 tabs 03/12/25 03/13/25 Rx levothyroxine 100 mcg tablet 112 mcg PO DAILY thyroid 04/04/25 Unknown History (Synthroid) hydralazine 25 mg tablet 25 mg PO TID #270 tabs 05/25/25 Unknown Rx isosorbide dinitrate 20 mg tablet 20 mg PO TID #270 tabs 05/25/25 Unknown Rx Allergy/AdvReac Type Severity Reaction Status Date / Time No Known Allergies Allergy Verified 06/24/25 23:47 Family History Mother Hypertension Father Heart disease Surgical History Hx of colonoscopy Hx of cholecystectomy H/O: hysterectomy Social History household members: spouse Smoking Status: Never smoker alcohol intake: never substance use type: does not use caffeine: No Physical Exam Const Constitutional Narrative: Intubated and mechanically ventilated. General Appearance: lethargic and ill appearing HEENT normocephalic and head/scalp atraumatic Mouth: endotracheal tube in place and OG tube in place Eyes PERRL and conjunctivae normal Neck supple General: trachea midline Chest inspection of chest normal Resp Auscultation: rales and diminished lung sounds Cardio regular rate and regular rhythm Heart Sounds: murmur GI normal to inspection, nondistended, normoactive bowel sounds Extremity no clubbing, cyanosis or edema Skin no rashes or lesions noted Neuro Sensorium / Orientation: sedated on vent Lab / Micro Data 06/25/25 07:00 06/25/25 07:55 Labs: Laboratory Results - last 24 hr 06/25/25 00:49: WBC 20.7 H, RBC 4.21, Hgb 12.2, Hct 38.9, MCV 92.4, MCH 29.0, MCHC 31.4 L, RDW Std Deviation 54.7 H, RDW Coeff of Leif 16.6 H, Plt Count 225, MPV 10.4, Immature Gran % (Auto) 0.900, Neut % (Auto) 90.9 H, Lymph % (Auto) 2.8 L, [place] % (Auto) 5.2, Eos % (Auto) 0.0, Baso % (Auto) 0.2, Absolute Neuts (auto) 18.8 H, Absolute Lymphs (auto) 0.58 L, Nucleated RBC % 0.4, Sodium 134, Potassium 4.1, Chloride 91 L, Carbon Dioxide 25.0, Anion Gap 18 H, BUN 55 H, Creatinine 5.40 H, Estim Creat Clear Calc 9.45 L*, Est GFR (MDRD) Non-Af 8 L, BUN/Creatinine Ratio 10.2, Glucose 232 H, Calcium 8.6, Magnesium 2.2, Total Bilirubin 1.00, AST 66 H, ALT 53 H, Alkaline Phosphatase 231 H, Troponin T High Sens 97 H* D, Total Protein 6.6, Albumin 3.7, Globulin 2.9, Albumin/Globulin Ratio 1.3 06/25/25 01:43: Lactic Acid 2.8 H* 06/25/25 02:43: Troponin T Hi Sens 2 Hr 94 H* 06/25/25 04:47: POC Glucose 183 H 06/25/25 07:00: WBC 16.3 H, RBC 4.14 L, Hgb 12.3, Hct 38.9, MCV 94.0, MCH 29.7, MCHC 31.6 L, RDW Std Deviation 57.9 H, RDW Coeff of Leif 16.9 H, Plt Count 208, MPV 10.6, Immature Gran % (Auto) 1.800 H, Neut % (Auto) 89.0 H, Lymph % (Auto) 5.2 L, [place] % (Auto) 3.7, Eos % (Auto) 0.1, Baso % (Auto) 0.2, Absolute Neuts (auto) 14.5 H, Absolute Lymphs (auto) 0.85, Nucleated RBC % 1.6, Sodium Cancelled, Potassium Cancelled, Chloride Cancelled, Carbon Dioxide Cancelled, Anion Gap Cancelled, BUN Cancelled, Creatinine Cancelled, Estim Creat Clear Calc Cancelled, Est GFR (MDRD) Non-Af Cancelled, BUN/Creatinine Ratio Cancelled, Glucose Cancelled, Lactic Acid 5.8 H*, Calcium Cancelled, Phosphorus Cancelled, Magnesium Cancelled, Total Bilirubin Cancelled, AST Cancelled, ALT Cancelled, Alkaline Phosphatase Cancelled, Ammonia 25.7, Troponin T Hi Sens 4Hr Cancelled, Total Protein Cancelled, Albumin Cancelled, Globulin Cancelled, Albumin/Globulin Ratio Cancelled, TSH Cancelled Micro: Microbiology 06/25/25 01:41 Mucosa - Nose SARS-CoV-2, Influenza & RSV (PCR) - Final ABG Data ABG results: ABG 06/25/25 06/25/25 01:49 06:47 Specimen Type STEFANI STEFANI Sample Site Not entered Not entered O2 % 2.0 100.0 VBG pH 7.36 7.11 L* VBG pO2 26 22 L VBG HCO3 31 H 23 VBG Total CO2 32 25 VBG O2 Sat (Calc) 43 L 23 L VBG Base Excess 5 H -7 L POC Mix VBG pCO2 Pt Tmp 54.8 H 71.0 H* O2 Delivery Device Cannula BiPAP POC PEEP 6 Peak Inspir Pressure 14 Crit Call To/Read Back Yes Imaging Radiology Impression Brain CT 06/25/25 00:44 IMPRESSION: No acute intracranial findings Reading Location: [facility] Cerv[address] Sp[address] 06/25/25 00:44 IMPRESSION: No acute cervical spine injury. Reading Location: [facility] Chest CTA 06/25/25 00:44 IMPRESSION: Moderate right effusion, adjacent lung compression. No embolism, dissection, or pneumonia. Reading Location: [facility] Abdomen/Pelvis CT 06/25/25 01:30 IMPRESSION: Possible third-spacing. Reading Location: [facility] Chest X-Ray 06/25/25 07:10 IMPRESSION: Tubes and lines in position. There is cardiomegaly with mild central vascular congestion. There is moderate right effusion, improved. There is infiltrate throughout the right lung with consolidation at the right base. [facility] Charges/Coding Procedures Hospitalists Procedures: 95008 Critical Care 1st Hr
--- NOTE | 2025-06-25 08:02 | PCM.OP.PRO2 ---
Procedures Hospitalists Procedures: 71122 Insert Non-tunnel CV Cath Non-invasive Procedural Procedure Information Date of Procedure: 06/25/25 Description of procedure: Central Venous Catheter Indication: Septic shock Consent was obtained from: Performed emergently A time-out was completed verifying correct patient, procedure, site, positioning, and special equipment if applicable. The patient was placed in a dependent position appropriate for central line placement based on the vein to be cannulated. The patient's right groin was prepped and draped in a sterile fashion. 1% lidocaine was used to anesthetize the surrounding skin area. A triple-lumen catheter was introduced into the right femoral vein using the Seldinger technique and under ultrasound guidance. The catheter was threaded smoothly over the guidewire and appropriate blood return was obtained. Each lumen of the catheter was evacuated of air and flushed with sterile saline. The catheter was then sutured in place to the skin and a sterile dressing applied. ULTRASOUND GUIDANCE STATEMENT (Vascular Access): I performed ultrasound image acquisition and interpretation for needle placement during the procedure. The vessel was identified and found to be free of thrombosis by compression technique. A safe point of entry was marked at the skin in an angle for axis was determined. The needle was guided by obtaining free-flowing fluid and by real-time visualization.
--- NOTE | 2025-06-25 08:06 | SEPSISATNOTE ---
Sepsis Attestation Sepsis Alert: Yes Sepsis Attestation: Agree w/Sepsis Date exam was performed: 06/25/25 Time exam was performed: 07:32 Possible Source of Sepsis: Pulmonary and Unknown Sepsis Organ Dysfunction Criteria Present: SBP < 90 mmHg or MAP < 65 mmHg, SBP decrease of more than 40 mmHg, Acute Respiratory Failure (New need for BiPAP/CPAP or MV), Creatinine > 2.0 mg/dL, UOP < 0.5 mL/kg/hour for 2 consecutive hours, Lactic Acid > 2 mmol/L, PaO2/FiO2 ratio < 300 and New/Unexplained change in mental status Fluid Resuscitation Fluid resuscitation indicated?: Yes Fluid Resuscitation ordered: Lesser volume fluid bolus ordered Amount of fluid ordered: 1,000 Reason for lesser fluid bolus:: Concern for fluid overload and Heart failure Sepsis Note Date exam was performed: 06/25/25 Time exam was performed: 09:30 Sepsis Attestation: Sepsis re-evaluation was performed Response to fluids: Non Fluid responsive hypotension and Vasopressors started
[2025-06-25] MEDS: Vancomycin HCl 2,000 MG in 0.9% Normal Saline (500mL Bag) 500 ML 250 MG IV (08:18)
[2025-06-25] MEDS: Piperacil/Tazobactam 3.375 GM in 0.9% Normal Saline (50mL MB+) 50 ML IV ×2 (08:20→21:32)
[2025-06-25 08:26] LABS: FI02 100.0; PEEP 5; RR 14; SITE Not entered; Time Given 08:23:53; VBG BASE EXCESS -4 mmol/L (-1.0-3.5); VBG PO2 30 mmHg (25-40); VBG SO2 42 % (50-70); VBG TCO2 27 mmol/L (23-33)
[2025-06-25 08:35] LABS: Troponin T High Sens 4 HR 94 ng/L (<=14)
[2025-06-25] MEDS: fentaNYL drip 100 ML 5 MCG CONT INF (08:36)
[2025-06-25 08:43] LABS: AST(SGOT) 90 U/L (<=31); Alanine Aminotransfer ALT/SGPT 56 U/L (<=34); Albumin, Serum 3.3 g/dL (3.4-4.8); Alkaline Phosphatase 254 U/L (35-104); Anion Gap 21 (5-15); BUN 55 mg/dL (4-19); BUN/Creat Ratio 9.8 RATIO (10-20); Calcium,Total 7.8 mg/dL (7.6-11.0); Carbon Dioxide 18.5 mmol/L (21.0-32.0); Chloride 95 mmol/L (98-108); Estimated Creatinine Clearance 8.92 ml/min (50-250); Globulin 2.5 g/dL (2.2-4.2); Glucose 204 mg/dL (70-99); Magnesium 2.2 mg/dL (1.5-2.2); Potassium 5.0 mmol/L (3.3-5.1)
--- NOTE | 2025-06-25 09:06 | PCM.RX.CS ---
Consult Antibiotic Management Pharmacy has been consulted to manage selected antibiotic: Vancomycin Type of Intervention Type of Consult: New start Suspected Infection Suspected Infection: Sepsis and Pneumonia Prior Doses of Antibiotics Prior Doses of Antibiotics Received/Current Regimen: Vancomycin 2000 mg IV x 1 given 06/25/25 @ 0818 Labs Labs: Sodium 135 mmol/L (133-145) 06/25/25 07:55 Potassium 5.0 mmol/L (3.3-5.1) 06/25/25 07:55 Chloride 95 mmol/L (98-108) L 06/25/25 07:55 Carbon Dioxide 18.5 mmol/L (21.0-32.0) L 06/25/25 07:55 Anion Gap 21 (5-15) H 06/25/25 07:55 BUN 55 mg/dL (4-19) H 06/25/25 07:55 Creatinine 5.61 mg/dL (0.70-1.20) H 06/25/25 07:55 Est GFR (MDRD) Non-Af 7 (>60) L 06/25/25 07:55 BUN/Creatinine Ratio 9.8 RATIO (10-20) L 06/25/25 07:55 Glucose 204 mg/dL (70-99) H 06/25/25 07:55 Microbiology Microbiology: Microbiology 06/25/25 01:41 Mucosa - Nose SARS-CoV-2, Influenza & RSV (PCR) - Final Dosing Weight Weight used for dosin.7 kg Estimated Creatinine Clearance Estimated Creatinine Clearance: ESRD HD Goal Trough Goal Trough: 15-20 mcg/mL Pharmacy Plan for Drug Dosing Pharmacy Plan for Drug Dosing: Vancomycin 2000 mg IV x1, further dosing and trough pending HD schedule. Pharmacy Service will continue to monitor and adjust dosing as required.
--- NOTE | 2025-06-25 09:16 | CPS ---
Drawn by Dr. Mcfarland
[2025-06-25] MEDS: Vasopressin 20 UNITS in 0.9% Normal Saline (50mL Bag) 24 ML 3 UNITS CONT INF ×2 (09:17→18:07)
[2025-06-25 09:20] LABS: Base Excess -3 mmol/L (-2 to +2); FI02 100.0; PEEP 5; PO2 202 mmHG (75-100); RR 18; SITE L Brach; SO2 100 % (95-99)
[2025-06-25 10:11] LABS: CPK Total, Creatine Kinase 119 U/L (24-195); Triglycerides 211 mg/dL
--- NOTE | 2025-06-25 10:36 | CON.PCM.RE_ITS ---
Assessment & Plan Assessment/Plan (1) Acute on chronic renal failure: QUALIFIERS: Acute renal failure type: unspecified Chronic kidney disease stage: stage 3 (moderate) Chronic kidney disease stage 3 subtype: stage 3a (GFR 45-59) Qualified Code(s): N17.9 - Acute kidney failure, unspecified; N18.31 - Chronic kidney disease, stage 3a PLAN: Acute renal failure, dialysis dependent, Wednesday, , Wednesday schedule. Today electrolytes are acceptable. Chest x-ray looks somewhat wet but she is on 2 pressors with worsening shock. Hold off on renal replacement therapy today. Discussed with ICU attending. Will likely plan for dialysis/CRRT tomorrow. HPI Consult Data Date of Consult: 06/25/25 HPI Narrative Reason for Consultation: Acute renal failure, dialysis dependent HPI Narrative: MISAEL MEDINA, is a 75 F who presents to the hospital with shortness of breath, altered mental status. Nephrology on consultation in view of acute renal failure, dialysis dependent, likely ESRD at this point. She has known history of acute renal failure, biopsy-proven ATN, presumably infection related. Has not recovered renal function yet, currently on dialysis Wednesday, , Wednesday schedule. Last dialysis was Wednesday it appears. Presented with above complaints, ongoing events include Respiratory failure, currently intubated, hypoxic/hypercapnic Sepsis, cardiogenic versus septic, currently on 2 pressors Chest x-ray consistent with pulmonary edema pattern, possibly superimposed pneumonia Unable to obtain review of systems since she is intubated [facility] Medical History Aortic valve stenosis Congestive heart failure Hypertension Type 2 diabetes mellitus with diabetic polyneuropathy Pulmonary hypertension LV dysfunction MRSA (methicillin resistant staph aureus) culture positive Hypothyroidism Osteoporosis Morbid obesity with BMI of 45.0-49.9, adult Wears glasses Post-menopausal Thyroid disease Diabetes Uses wheelchair Ambulates with cane Arthritis High cholesterol Back pain TIA (transient ischemic attack) Dietary restriction Non-smoker History of pain when walking History of transesophageal echocardiography (DESTIN) Cardiology follow-up encounter Diabetes Home Medications ?Medication ?Instructions ?Recorded ?Last Taken ?Type atorvastatin 10 mg tablet 10 mg PO QHS cholesterol 03/12/25 History aspirin 81 mg chewable tablet 81 mg PO DAILYCM 90 days #90 tabs 10/21/24 03/13/25 Rx carvedilol 6.25 mg tablet (Coreg) 6.25 mg PO BID #60 t abs 12/01/24 03/13/25 Rx furosemide 40 mg tablet 40 mg PO QAM #30 tabs 03/13/25 Rx levothyroxine 100 mcg tablet 112 mcg PO DAILY thyroid 04/04/25 Unknown History (Synthroid) hydralazine 25 mg tablet 25 mg PO TID #270 tabs 05/25 Unknown Rx isosorbide dinitrate 20 mg tablet 20 mg PO TID #270 ta bs 05/25/25 Unknown Rx Allergy/AdvReac Type Severity Reaction Status Date / Time No Known Allergies Allergy Verified 06/24/25 23:47 Family History Mother Hypertension Father Heart disease Surgical History Hx of colonoscopy Hx of cholecystectomy H/O: hysterectomy Social History household members: spouse Smoking Status: Never smoker alcohol intake: never substance use type: does not use caffeine: No ROS ROS Narrative Unable to obtain Physical Exam Narrative Alert awake oriented x 3 no obvious distress no pallor no icterus no JVD s1s2 no murmurs lungs clear abdomen soft no organomegaly no edema no cyanosis Lab / Micro Data 06/25/25 07:00 06/25/25 07:55 Labs: Laboratory Results - last 24 hr 06/25/25 00:49: WBC 20.7 H, RBC 4.21, Hgb 12.2, Hct 38.9, MCV 92.4, MCH 29.0, M CHC 31.4 L, RDW Std Deviation 54.7 H, RDW Coeff of Leif 16.6 H, Plt Count 225, MPV 10.4, Immature Gran % (Auto) 0.900, Neut % (Auto) 90.9 H, Lymph % (Auto) 2.8 L, [place] % (Auto) 5.2, Eos % (Auto) 0.0, Baso % (Auto) 0.2, Absolute Neuts (auto) 18.8 H, Absolute Lymphs (auto) 0.58 L, Nucleated RBC % 0.4, Sodium 134, Potassium 4.1, Chloride 91 L, Carbon Dioxide 25.0, Anion Gap 18 H, BUN 55 H, C reatinine 5.40 H, Estim Creat Clear Calc 9.45 L*, Est GFR (MDRD) Non-Af 8 L, BUN/Creatinine Ratio 10.2, Glucose 232 H, Calcium 8.6, Magnesium 2.2, Total Bilirubin 1.00, AST 66 H, ALT 53 H, Alkaline Phosphatase 231 H, Troponin T High Sens 97 H* D, Total Protein 6.6, Albumin 3.7, Globulin 2.9, Albumin/Globulin Ratio 1.3 06/25/25 01:43: Lactic Acid 2.8 H* 06/25/25 02:43: Troponin T Hi Sens 2 Hr 94 H* 06/25/25 04:47: POC Glucose 183 H 06/25/25 07:00: WBC 16.3 H, RBC 4.14 L, Hgb 12.3, Hct 38.9, MCV 94.0, MCH 29.7, MCHC 31.6 L, RDW Std Deviation 57.9 H, RDW Coeff of Leif 16.9 H, Plt Count 208, MPV 10.6, Immature Gran % (Auto) 1.800 H, Neut % (Auto) 89.0 H, Lymph % (Auto) 5.2 L, [place] % (Auto) 3.7, Eos % (Auto) 0.1, Baso % (Auto) 0.2, Absolute Neuts (auto) 14.5 H, Absolute Lymphs (auto) 0.85, Nucleated RBC % 1.6, Sodium Cancelled, Potassium Cancelled, Chloride Cancelled, Carbon Dioxide Cancelled, Anion Gap Cancelled, BUN Cancelled, Creatinine Cancelled, Estim Creat Clear Calc Cancelled, Est GFR (MDRD) Non-Af Cancelled, BUN/Creatinine Ratio Cancelled, Glucose Cancelled, Lactic Acid 5.8 H*, Calcium Cancelled, Phosphorus Cancelled, Magnesium Cancelled, Total Bilirubin Cancelled, AST Cancelled, ALT Cancelled, Alkaline Phosphatase Cancelled, Ammonia 25.7, Troponin T Hi Sens 4Hr Cancelled, Total Protein Cancelled, Albumin Cancelled, Globulin Cancelled, Albumin/Globulin Ratio Cancelled, TSH Cancelled 06/25/25 07:55: Sodium 135, Potassium 5.0, Chloride 95 L, Carbon Dioxide 18.5 L, Anion Gap 21 H, BUN 55 H, Creatinine 5.61 H, Estim Creat Clear Calc 8.92 L*, Est GFR (MDRD) Non-Af 7 L, BUN/Creatinine Ratio 9.8 L, Glucose 204 H, Calcium 7.8, P hosphorus 6.7 H, Magnesium 2.2, Total Bilirubin 1.02, AST 90 H, ALT 56 H, A lkaline Phosphatase 254 H, Total Creatine Kinase 119, Troponin T Hi Sens 4Hr 94 H*, Total Protein 5.8 L, Albumin 3.3 L, Globulin 2.5, Albumin/Globulin Ratio 1.3, Triglycerides 211 H, TSH 2.440 Micro: Microbiology 06/25/25 01:41 Mucosa - Nose SARS-CoV-2, Influenza & RSV (PCR) - Final ABG Data ABG results: ABG 06/25/25 06/25/25 06/25/25 01:49 06:47 08:22 Specimen Type STEFANI STEFANI STEFANI Sample Site Not entered Not entered Not entered pH Bicarbonate Actual Total CO2 Base Excess O2 Saturation O2 % 2.0 100.0 100.0 ABG pCO2 ABG pO2 VBG pH 7.36 7.11 L* 7.18 L* VBG pO2 26 22 L 30 VBG HCO3 31 H 23 25 VBG Total CO2 32 25 27 VBG O2 Sat (Calc) 43 L 23 L 42 L VBG Base Excess 5 H -7 L -4 L POC Mix VBG pCO2 Pt Tmp 54.8 H 71.0 H* 66.7 H Respiration Rate 14 O2 Delivery Device Cannula BiPAP Adult Vent Vent Mode Tidal Volume 450.0 POC PEEP 6 5 Peak Inspir Pressure 14 Crit Call To/Read Back Yes Yes Blood Gas Notified Whom elpidio Blood Gas Notified Time 08:23:53 06/25/25 09:17 Specimen Type ART Sample Site L Brach pH 7.42 Bicarbonate Actual 21.8 L Total CO2 23 Base Excess -3 L O2 Saturation 100 H O2 % 100.0 ABG pCO2 33.8 L ABG pO2 202 H VBG pH VBG pO2 VBG HCO3 VBG Total CO2 VBG O2 Sat (Calc) VBG Base Excess POC Mix VBG pCO2 Pt Tmp Respiration Rate 18 O2 Delivery Device Adult Vent Vent Mode AC Tidal Volume 450.0 POC PEEP 5 Peak Inspir Pressure Crit Call To/Read Back Blood Gas Notified Whom Blood Gas Notified Time Imaging Radiology Impression Brain CT 06/25/25 00:44 IMPRESSION: No acute intracranial findings Reading Location: [facility] 06/25/25 00:44 IMPRESSION: No acute cervical spine injury. Reading Location: [facility] Chest CTA 06/25/25 00:44 IMPRESSION: Moderate right effusion, adjacent lung compression. No embolism, dissection, or pneumonia. Reading Location: [facility]2 Abdomen/Pelvis CT 06/25/25 01:30 IMPRESSION: Possible third-spacing. Reading Location: [facility] Chest X-Ray 06/25/25 07:10 IMPRESSION: Tubes and lines in position. There is cardiomegaly with mild central vascular congestion. There is moderate right effusion, improved. There is infiltrate throughout the right lung with consolidation at the right base. Reading Location: [facility]
[2025-06-25] MEDS: Pantoprazole Sodium 40 MG in 0.9% Normal Saline (100mL MB+) 100 ML 330 MG IV ×2 (10:40→21:33)
[2025-06-25] MEDS: Chlorhexidine 15 ML PO ×2 (10:42→21:32)
[2025-06-25] MEDS: APIXABAN 5 MG TABLET PO ×2 (12:14→21:32)
[2025-06-25] MEDS: Norepinephrine 8 MG in 0.9% Normal Saline (250mL Bag) 242 ML 46.9 MG CONT INF ×2 (12:42→18:00)
--- NOTE | 2025-06-25 14:43 | PN.HOSP_ITS ---
Hospitalist Note Blood pressure very low on Levophed therefore shock. Right femoral triple-lumen catheter was inserted by engraving plate maker. Diagnosis undifferentiated shock. Encephalopathy. Acute hypoxic respiratory failure, intubated in the morning. Follow-up ABG Patient was admitted in the morning discussed with the nighttime hospitalist. Microbiology Past 72 Hours 06/25/25 01:41 Mucosa - Nose SARS-CoV-2, Influenza & RSV (PCR) - Final Laboratory Results 06/25/25 00:49: WBC 20.7 H, RBC 4.21, Hgb 12.2, Hct 38.9, MCV 92.4, MCH 29.0, MCHC 31.4 L, RDW Std Deviation 54.7 H, RDW Coeff of Leif 16.6 H, Plt Count 225, MPV 10.4, Immature Gran % (Auto) 0.900, Neut % (Auto) 90.9 H, Lymph % (Auto) 2.8 L, Graves % (Auto) 5.2, Eos % (Auto) 0.0, Baso % (Auto) 0.2, Absolute Neuts (auto) 18.8 H, Absolute Lymphs (auto) 0.58 L, Nucleated RBC % 0.4, Sodium 134, Potassium 4.1, Chloride 91 L, Carbon Dioxide 25.0, Anion Gap 18 H, BUN 55 H, Creatinine 5.40 H, Estim Creat Clear Calc 9.45 L*, Est GFR (MDRD) Non-Af 8 L, BUN/Creatinine Ratio 10.2, Glucose 232 H, Calcium 8.6, Magnesium 2.2, Total Bilirubin 1.00, AST 66 H, ALT 53 H, Alkaline Phosphatase 231 H, Troponin T High Sens 97 H* D, Total Protein 6.6, Albumin 3.7, Globulin 2.9, Albumin/Globulin Ratio 1.3 06/25/25 01:43: Lactic Acid 2.8 H* 06/25/25 01:49: Specimen Type STEFANI, Sample Site Not entered, O2 % 2.0, VBG pH 7.36, VBG pO2 26, VBG HCO3 31 H, VBG Total CO2 32, VBG O2 Sat (Calc) 43 L, VBG Base Excess 5 H, POC Mix VBG pCO2 Pt Tmp 54.8 H, O2 Delivery Device Cannula 06/25/25 02:43: Troponin T Hi Sens 2 Hr 94 H* 06/25/25 04:47: POC Glucose 183 H 06/25/25 06:47: Specimen Type STEFANI, Sample Site Not entered, O2 % 100.0, VBG pH 7.11 L*, VBG pO2 22 L, VBG HCO3 23, VBG Total CO2 25, VBG O2 Sat (Calc) 23 L, VBG Base Excess -7 L, POC Mix VBG pCO2 Pt Tmp 71.0 H*, O2 Delivery Device BiPAP, POC PEEP 6, Peak Inspir Pressure 14, Crit Call To/Read Back Yes 06/25/25 07:00: WBC 16.3 H, RBC 4.14 L, Hgb 12.3, Hct 38.9, MCV 94.0, MCH 29.7, MCHC 31.6 L, RDW Std Deviation 57.9 H, RDW Coeff of Leif 16.9 H, Plt Count 208, MPV 10.6, Immature Gran % (Auto) 1.800 H, Neut % (Auto) 89.0 H, Lymph % (Auto) 5.2 L, Graves % (Auto) 3.7, Eos % (Auto) 0.1, Baso % (Auto) 0.2, Absolute Neuts (auto) 14.5 H, Absolute Lymphs (auto) 0.85, Nucleated RBC % 1.6, Sodium Cancelled, Potassium Cancelled, Chloride Cancelled, Carbon Dioxide Cancelled, Anion Gap Cancelled, BUN Cancelled, Creatinine Cancelled, Estim Creat Clear Calc Cancelled, Est GFR (MDRD) Non-Af Cancelled, BUN/Creatinine Ratio Cancelled, Glucose Cancelled, Lactic Acid 5.8 H*, Calcium Cancelled, Phosphorus Cancelled, Magnesium Cancelled, Total Bilirubin Cancelled, AST Cancelled, ALT Cancelled, Alkaline Phosphatase Cancelled, Ammonia 25.7, Troponin T Hi Sens 4Hr Cancelled, Total Protein Cancelled, Albumin Cancelled, Globulin Cancelled, Albumin/Globulin Ratio Cancelled, TSH Cancelled 06/25/25 07:55: Sodium 135, Potassium 5.0, Chloride 95 L, Carbon Dioxide 18.5 L, Anion Gap 21 H, BUN 55 H, Creatinine 5.61 H, Estim Creat Clear Calc 8.92 L*, Est GFR (MDRD) Non-Af 7 L, BUN/Creatinine Ratio 9.8 L, Glucose 204 H, Calcium 7.8, Phosphorus 6.7 H, Magnesium 2.2, Total Bilirubin 1.02, AST 90 H, ALT 56 H, Savana line Phosphatase 254 H, Total Creatine Kinase 119, Troponin T Hi Sens 4Hr 94 H*, Total Protein 5.8 L, Albumin 3.3 L, Globulin 2.5, Albumin/Globulin Ratio 1.3, Triglycerides 211 H, TSH 2.440 06/25/25 08:22: Specimen Type STEFANI, Sample Site Not entered, O2 % 100.0, VBG pH 7.18 L*, VBG pO2 30, VBG HCO3 25, VBG Total CO2 27, VBG O2 Sat (Calc) 42 L, VBG Base Excess -4 L, POC Mix VBG pCO2 Pt Tmp 66.7 H, Respiration Rate 14, O2 Delivery Device Adult Vent, Tidal Volume 450.0, POC PEEP 5, Crit Call To/Read Back Yes, Blood Gas Notified Whom elpidio Blood Gas Notified Time 08:23:53 06/25/25 09:17: Specimen Type ART, Sample Site L Brach, pH 7.42, Bicarbonate Actual 21.8 L, Total CO2 23, Base Excess -3 L, O2 Saturation 100 H, O2 % 100.0, ABG pCO2 33.8 L, ABG pO2 202 H, Respiration Rate 18, O2 Delivery Device Adult Vent, Vent Mode AC, Tidal Volume 450.0, POC PEEP 5 06/25/25 12:12: POC Glucose 175 H
[2025-06-25] MEDS: fentaNYL drip 100 ML 15 MCG CONT INF ×2 (14:47→21:39)
[2025-06-25] MEDS: Acetaminophen 650 MG/20 ML UDC GT (23:59)
[2025-06-25] MEDS: 0.9% Saline Lock 10 ML Syringe IV (23:59)
[2025-06-26] VITALS (46 sets, daily range): BP systolic 82–143; BP diastolic 41–124; PULSE 41–62; RESP 17–19; TEMP 36.4–37.1; O2SAT 94–98; BMI 42.5
[2025-06-26 00:08] LABS: Mucous, Urine 0 SEEN /hpf (<or=2+)
[2025-06-26 00:40] LABS: Color, Urine Brown (Yellow); Glucose, Dipstick 50 mg/dl (Normal); Ketone-Dipstick 5 mg/dl (Negative); Leukocyte Esterase-Dipstick 500 /ul (Negative); Nitrite-Dipstick Positive (Negative); Occult Blood-Urine 250 /ul (Negative); Protein-Dipstick 500 mg/dl (Negative); Specific Gravity, Urine 1.020 (1.002-1.030)
[2025-06-26] MEDS: Norepinephrine 8 MG in 0.9% Normal Saline (250mL Bag) 242 ML 28.1 MG CONT INF (00:45)
[2025-06-26 01:02] LABS: Urine Bilirubin Dipstick 3 mg/dL (Negative)
[2025-06-26 01:03] LABS: Red Blood Cells-Urine 50-100 SEEN /hpf (0-5); Squamous Epithelial Cells - UA 0-5 SEEN /hpf (5-10)
[2025-06-26 01:04] LABS: Fine Granular Cast- Urine 5-10 SEEN /lpf (0-5)
[2025-06-26 01:05] LABS: Transitional Epithelial - Ur 0-5 SEEN /hpf (0-5)
[2025-06-26] MEDS: fentaNYL drip 100 ML 12.5 MCG CONT INF ×3 (04:57→19:39)
[2025-06-26 05:29] LABS: Hematocrit 37.9 % (37-47); Hemoglobin 12.4 g/dL (12.0-15.0); Immature Granulocytes Count 0.370 X10^3/uL (0.0-0.0); Mean Corp Hgb Conc 32.7 g/dL (32-36); Mean Corpuscular Volume 89.2 fL (81-99); Mean Platelet Vol. 11.3 fl (6.2-12.0); NRBC Flagged by Analyzer 0.5 % (0-5); Platelet Count 190 K/mm3 (150-450); RBC Distribution Width CV 16.7 % (11.6-14.6); RBC Distribution Width SD 54.0 fl (35.1-43.9); Red Blood Count 4.25 M/mm3 (4.2-5.4); White Blood Count 22.3 K/mm3 (4.4-11.0)
[2025-06-26 05:37] LABS: Anion Gap 24 (5-15); BUN 65 mg/dL (4-19); BUN/Creat Ratio 10.8 RATIO (10-20); Calcium,Total 8.0 mg/dL (7.6-11.0); Carbon Dioxide 16.0 mmol/L (21.0-32.0); Chloride 96 mmol/L (98-108); Estimated Creatinine Clearance 8.53 ml/min (50-250); Glucose 219 mg/dL (70-99); Potassium 4.9 mmol/L (3.3-5.1)
[2025-06-26 06:21] LABS: Magnesium 2.1 mg/dL (1.5-2.2)
--- NOTE | 2025-06-26 07:18 | PN.HOSP_ITS ---
Reason for Visit Chief Complaint: Fall, closed head trauma, transient LOC. Objective Data Objective Data Vital Signs: Vital Signs Temp Pulse Resp BP Pulse Ox O2 Del Method O2 Flow Rate 98.4 F 42 L 18 105/47 L 95 Mechanical Ventilator 50 06/26/25 05:00 06/26/25 07:04 06/26/25 07:04 06/26/25 07:00 06/26/25 07:04 06/26/25 07:00 06/26/25 01:00 FiO2 40 06/26/25 07:04 Oxygen Flow Rate (L/min) 50 Oxygen Delivery Method Mechanical Ventilator Weight: 217 lb 13.067 oz Body Mass Index (BMI) 42.5 Intake & Output: Intake and Output for Last 24 Hours 06/24/25 06/25/25 06/26/25 23:59 23:59 23:59 Intake Total 3033.92 / 3082.97 389.69 / 389.69 Output Total 0 / 45 45 / 45 Balance 3033.92 / 3037.97 344.69 / 344.69 Lab / Micro Data 06/26/25 04:50 06/26/25 04:50 Labs: Laboratory Results - last 24 hr 06/25/25 00:00: Urine Color Brown, Urine Clarity Turbid, Urine pH 5.0, Ur Specific [place] 1.020, Urine Protein 500 H, Urine Glucose (UA) 50 H, Urine Ketones 5 H, Urine Occult Blood 250 H, Urine Nitrite Positive H, Urine Bilirubin 3 H, Urine Urobilinogen 1 H, Ur Leukocyte Esterase 500 H, Urine RBC 50-100 SEEN, Urine WBC 50-100 SEEN, Ur Squamous Epith Cells 0-5 SEEN, Ur Transition Epith Cell 0-5 SEEN, Ur Renal Epithelial Cell 0-5 SEEN, Urine Bacteria 3+, Fine Granular Casts 5-10 SEEN, Urine Mucus 0 SEEN 06/25/25 07:00: Lactic Acid 5.8 H*, 06/25/25 07:55: Sodium 135, Potassium 5.0, Chloride 95 L, Carbon Dioxide 18.5 L, Anion Gap 21 H, BUN 55 H, Creatinine 5.61 H, Estim Creat Clear Calc 8.92 L*, Est GFR (MDRD) Non-Af 7 L, BUN/Creatinine Ratio 9.8 L, Glucose 204 H, Calcium 7.8, P hosphorus 6.7 H, Magnesium 2.2, Total Bilirubin 1.02, AST 90 H, ALT 56 H, A lkaline Phosphatase 254 H, Total Creatine Kinase 119, Troponin T Hi Sens 4Hr 94 H*, Total Protein 5.8 L, Albumin 3.3 L, Globulin 2.5, Albumin/Globulin Ratio 1.3, Triglycerides 211 H, TSH 2.440 06/25/25 12:12: POC Glucose 175 H 06/25/25 18:53: POC Glucose 207 H 06/25/25 23:56: POC Glucose 192 H 06/26/25 04:50: WBC 22.3 H, RBC 4.25, Hgb 12.4, Hct 37.9, MCV 89.2 D, MCH 29.2, MCHC 32.7, RDW Std Deviation 54.0 H, RDW Coeff of Leif 16.7 H, Plt Count 190, MPV 11.3, Immature Gran % (Auto) 1.700 H, Neut % (Auto) 88.4 H, Lymph % (Auto) 4.7 L , Woods % (Auto) 4.4, Eos % (Auto) 0.4, Baso % (Auto) 0.4, Absolute Neuts (auto) 19.7 H, Absolute Lymphs (auto) 1.05, Nucleated RBC % 0.5, Sodium 136, Potassium 4.9, Chloride 96 L, Carbon Dioxide 16.0 L, Anion Gap 24 H, BUN 65 H, Creatinine 6.01 H, Estim Creat Clear Calc 8.53 L*, Est GFR (MDRD) Non-Af 7 L, BUN/Creatinine Ratio 10.8, Glucose 219 H, Calcium 8.0, Phosphorus 6.5 H, Magnesium 2.1 06/26/25 05:08: POC Glucose 202 H Micro: Microbiology 06/25/25 01:43 Blood Culture (Wb) - Arm Left Bacteria Detection (PCR) - Preliminary Staphylococcus aureus mecA Resistance Marker 06/25/25 01:43 Blood Culture (Wb) - Arm Left Blood Culture - Preliminary 06/25/25 01:43 Blood Culture (Wb) - Anticubital Right Blood Culture - Preliminary 06/25/25 07:00 Sputum, Induced/Lukens Gram Stain - Final 06/25/25 01:41 Mucosa - Nose SARS-CoV-2, Influenza & RSV (PCR) - Final ABG Data ABG results: ABG 08/11/25 08/11/25 08:22 09:17 Specimen Type STEFANI ART Sample Site Not entered L Brach pH 7.42 Bicarbonate Actual 21.8 L Total CO2 23 Base Excess -3 L O2 Saturation 100 H O2 % 100.0 100.0 ABG pCO2 33.8 L ABG pO2 202 H VBG pH 7.18 L* VBG pO2 30 VBG HCO3 25 VBG Total CO2 27 VBG O2 Sat (Calc) 42 L VBG Base Excess -4 L POC Mix VBG pCO2 Pt Tmp 66.7 H Respiration Rate 14 18 O2 Delivery Device Adult Vent Adult Vent Vent Mode AC Tidal Volume 450.0 450.0 POC PEEP 5 5 Crit Call To/Read Back Yes Blood Gas Notified Whom elpidio Blood Gas Notified Time 08:23:53 Radiography Diagnostic Testing: Radiology Impression Echocardiogram 06/25/25 05:55 Interpretation Summary The left ventricular ejection fraction is 20 %. Normal LV size. Moderate concentric left ventricular hypertrophy. Moderately severe global right ventricular systolic dysfunction. Pulmonary artery systolic pressure is 64 mmHg. Ordering Physician: Ana Chambers Referring Physician: BRITTANI WILL Performed By: Rimma Jolly RCS Chest X-Ray 06/25/25 07:10 IMPRESSION: Tubes and lines in position. There is cardiomegaly with mild central vascular congestion. There is moderate right effusion, improved. There is infiltrate throughout the right lung with consolidation at the right base. Reading Location: [facility] Physical Exam Narrative Seen and examined Patient is still on ventilator and vasopressor. No fever. On 40% FiO2 ventilator. Sinus bradycardia, heart rate in low 40s on library monitor Physical exam General: Lightly sedated, responsive but trying to open eyes but not complete opening. HEENT: Atraumatic, PERRLA, EOMI, Normocephalic. Oral: ETT and OG tube Neck: Supple, No JVD, Negative Carotid Bruits Chest wall/Lungs: Right subclavicular dialysis catheter. Air entry diminished in bilateral lung bases. On vent Cardiovascular: Soft heart sound, severe sinus bradycardia, no M/G/R Abdomen: Bowel Sounds sluggish right femoral TLC, Soft, Non Tender, Non- Distended : Dialysis dependent, Underwood catheter empty. No renal angle tenderness. No suprapubic tenderness. Extremities: Mild to minimal subcutaneous leg edema, Capillary Refill Less than 3 Seconds Skin: Old scar on bilateral lower legs, Delvin wrap bandage Musculoskeletal: No Tenderness to Palpation of Joints or Extremities Neurological: Nonfocal exam, sedated Psych/Mental Status: Flat affect Assessment & Plan Assessment/Plan (1) Fall: (2) PAF (paroxysmal atrial fibrillation): PLAN: Plan The patient is a 75 y/o F who was admitted through ED after EMS found unconscious in the bathroom fell off toilet and then shock state in the ED. She was unconscious for about 3 minutes. #1. Undifferentiated shock possible cardiogenic /or mixed septic shock: Patient was started on Levophed since beginning in ICU after she was transferred to PCU shortly after admission. She had right femoral TLC. She has endorgan dysfunction including lactic acidosis, hypotension not responsive to fluid and acute hypoxic respiratory failure. Preliminary blood culture shows Staph aureus, mec resistance markers detected therefore the MRSA. Continue broad- spectrum antibiotic. Consult ID. Continue broad-spectrum IV antibiotic, vancomycin and Zosyn. Patient on Levophed and vasopressin. CT abdomen shows potential third spacing 2. Acute on chronic HFrEF with possible cardiogenic shock with moderate to severe pulmonary hypertension and valvular heart disease, moderately severe TR: Troponins are elevated 97, 94 and 94. 2D echo shows EF 20%, moderate concentric LVH, global hypokinesis, RV moderately dilated. Severe global RV systolic dysfunction. Normal mitral valve but 3+ TR. PASP 64 mm to moderate pulmonary hypertension normal tricuspid valve. IVC dilated. No pericardial effusion. No vegetation noticed. Retail Consultant consulted. Previous echo shows EF 30% on November 2024 but RV was normal. PASP was reported 65 with 2+ TR and 2+ MR 3. Acute hypoxic respiratory failure: Currently patient on 40% FiO2. Repeat ABG shows 7.4 2/33/202 on 100% FiO2, 450, 18 and PEEP 5. Previous was VBG 7.18. There was discrepancy noted on the bicarb, bicarb reported 27 on VBG and BMP shows 18 similarly ABG showed bicarb 23 #4. Diabetes mellitus type II: Accu-Chek before meals and at bedtime with Humalog sliding scale coverage and hypoglycemia protocol. #5. Acute encephalopathy due to shock probably related to metabolic and toxic in etiology: Initial CT head was unremarkable. TSH within normal limit. 6. ESRD on hemodialysis: Patient was evaluated by education associate. No urine output, has Underwood catheter. Possible CRRT as patient on 2 vasopressors. 7. Hypotension with history of hypertension: On vasopressors 8. Hyperlipidemia: continue patient on statin therapy. 9. Chronic normocytic anemia/AOCD: Admission hemoglobin 12.2, MCV 92.4, baseline hemoglobin primarily 10-11 range, no significant 10. Hypothyroidism: continue patient home levothyroxine regimen 11. Morbid Obesity: Weight loss and lifestyle changes for further care if she is out of ICU DVT prophylaxis: On Eliquis CODE status: Patient STEFANIE is her primary and son secondary and living will is currently in place. Discussed CODE status at length including difference between FULL code, DNR-CCA and DNR-CC status. Following discussions about the differences in these status, requested Full Code status. Charges/Coding Addendum Addendum: Total time of the visit including total time spent in counseling or coordination of care, (more than 50% of the total time, spent in obtaining medical information from nurses and other ancillary care providers ,explaining to the patient about labs, imaging, diagnosis and management of active complex medical conditions), discussion with many consultants, poor prognosis,, review of labs and imaging is 35 minutes. Visit Charges Inpatient E&M: 40371 Subs Hosp L3
--- NOTE | 2025-06-26 08:56 | PCM.CONS.C ---
Assessment & Plan Assessment/Plan (1) Septic shock: PLAN: Patient is going Staph aureus MRSA out of her blood. ID has been consulted the patient is on Vanco and Zosyn. They have been able to wean some of the pressors. Further treatment as per the primary service and intensive care physicians. (2) PAF (paroxysmal atrial fibrillation): PLAN: Patient remains in sinus rhythm heart rate was in the 80 bpm range earlier when she was on 2 pressors and now it is down into the mid 40s. Blood pressure is running around 100?120 at this point in time. (3) Acute kidney failure: QUALIFIERS: Acute renal failure type: unspecified Qualified Code(s): N17.9 - Acute kidney failure, unspecified PLAN: This is being managed by the nephrology team. The patient's last hemodialysis was June 23. (4) Congestive heart failure: QUALIFIERS: Heart failure type: systolic Heart failure chronicity: acute on chronic Qualified Code(s): I50.23 - Acute on chronic systolic (congestive) heart failure PLAN: Patient has an EF that is slowly deteriorated over the last 8 months. She has had multiple admissions for decompensation and infections. The patient's EF now is in the 20% range she also has significant pulmonary hypertension in the 70 mmHg range with 3+ TR. In her home environment the patient had been on hydralazine and nitrates as well as carvedilol. There have been some interruption of these meds due to hypotension. The patient's prognosis is poor given her renal failure, respiratory failure, and congestive heart failure. This is complicated by her known pulmonary hypertension. When the patient recovers hemodynamically would need to reinstitute slowly her heart failure medical therapy. I would recommend avoiding carvedilol given her bradycardia at this point in time. But would slowly reintroduce the Isorbid dinitrate and hydralazine at low doses. Patient's volume status has been managed by dialysis since earlier this spring. PLAN: Plan 1. We continue to hold current vasoactive medical therapy given the patient's hemodynamic status. 2. When hemodynamic status stabilizes would reinstitute first low-dose hydralazine and then add low-dose nitrates. 3. Would avoid beta-ralph or rate slowing medications at this point in time. 4. Will follow-up with you please call if further assistance is needed. HPI Consult Data Date of Consult: 06/26/25 HPI Narrative Reason for Consultation: Shock with a history of LV dysfunction HPI Narrative: MISAEL MEDINA, is a 75 F who presents with progressive shortness of breath and altered mental status. Patient was ultimately intubated due to respiratory failure both hypoxic and hypercapnic. She was on 2 pressors overnight but is had been weaned down to Levophed at this point in time. The patient remains intubated and sedated she does arouse to stimulation. The patient is growing MRSA from her blood. Patient has a history of global LV systolic dysfunction in October 2020 for her EF was 40% at the end of November 2024 it had fallen to 30%. The patient's had multiple admissions for volume overload and infectious issues. Repeat echocardiogram yesterday showed an EF of 20% in a global fashion she also has a history of RV systolic dysfunction pulmonary hypertension with PA pressures estimated in the 70 mmHg range and 3+ tricuspid regurgitation she also carries a history of mild aortic stenosis. Patient also carries a history of renal failure on hemodialysis Wednesday. Last dialysis was June 23. Currently the patient is intubated and sedated but does respond to opening her eyes with verbal commands. Since weaning her pressors her heart rate has dropped from the 80 bpm range down into the 40-45 bpm range all in sinus rhythm. [facility] Medical History Aortic valve stenosis Congestive heart failure Hypertension Type 2 diabetes mellitus with diabetic polyneuropathy Pulmonary hypertension LV dysfunction MRSA (methicillin resistant staph aureus) culture positive Hypothyroidism Osteoporosis Morbid obesity with BMI of 45.0-49.9, adult Wears glasses Post-menopausal Thyroid disease Diabetes Uses wheelchair Ambulates with cane Arthritis High cholesterol Back pain TIA (transient ischemic attack) Dietary restriction Non-smoker History of pain when walking History of transesophageal echocardiography (DESTIN) Cardiology follow-up encounter Diabetes Home Medications ?Medication ?Instructions ?Recorded ?Last Taken ?Type atorvastatin 10 mg tablet 10 mg PO QHS cholesterol 08/31/22 03/12/25 History aspirin 81 mg chewable tablet 81 mg PO DAILYCM 90 days #90 tabs 10/21/24 03/13/25 Rx carvedilol 6.25 mg tablet (Coreg) 6.25 mg PO BID #60 tabs 12/01/24 03/13/25 Rx furosemide 40 mg tablet 40 mg PO QAM #30 tabs 03/12/25 03/13/25 Rx levothyroxine 100 mcg tablet 112 mcg PO DAILY thyroid 04/04/25 Unknown History (Synthroid) hydralazine 25 mg tablet 25 mg PO TID #270 tabs 05/25/25 Unknown Rx isosorbide dinitrate 20 mg tablet 20 mg PO TID #270 tabs 05/25/25 Unknown Rx Allergy/AdvReac Type Severity Reaction Status Date / Time No Known Allergies Allergy Verified 06/24/25 23:47 Family History Mother Hypertension Father Heart disease Surgical History Hx of colonoscopy Hx of cholecystectomy H/O: hysterectomy Social History household members: spouse Smoking Status: Never smoker alcohol intake: never substance use type: does not use caffeine: No ROS Review of Systems ROS Unobtainable: due to endotracheal tube Physical Exam Const Constitutional Narrative: Intubated and sedated follows simple commands. HEENT normocephalic Neck Neck Narrative: Noted JVD at 30 degrees to the angle of the jaw. Chest inspection of chest normal Resp Resp Narrative: Intubated with rhonchi throughout the chest. Cardio Cardio Narrative: Difficult to auscultate due to body habitus and respiratory noise. Rate: bradycardia Rhythm: regular rhythm Heart Sounds: S1 normal, S2 normal and murmur systolic I/ soft mid; Negative for click or gallop GI normal to inspection, nondistended, normoactive bowel sounds Extremity no pedal edema Neuro Neuro Narrative: Sedated Risk Stratification Risk Stratification Applicable: No Charges/Coding Visit Charges Inpatient E&M: 99343 Init Hosp L2 Objective Data Vital Signs: Vital Signs Temp Pulse Resp BP Pulse Ox O2 Del Method O2 Flow Rate 98.8 F 48 L 18 130/48 H 96 Mechanical Ventilator 50 06/26/25 08:00 06/26/25 08:00 06/26/25 08:00 06/26/25 08:45 06/26/25 08:00 06/26/25 08:00 06/26/25 01:00 FiO2 40 06/26/25 08:00 Oxygen Flow Rate (L/min) 50 Oxygen Delivery Method Mechanical Ventilator Weight: 217 lb 13.067 oz Body Mass Index (BMI) 42.5 Intake & Output: Intake and Output for Last 24 Hours 06/24/25 06/25/25 06/26/25 23:59 23:59 23:59 Intake Total 3033.92 / 3082.97 420.24 / 420.24 Output Total 0 / 45 45 / 45 Balance 3033.92 / 3037.97 375.24 / 375.24 Lab / Micro Data Attestation: I reviewed the patient's lab results. 06/26/25 04:50 06/26/25 04:50 Labs: Laboratory Results - last 24 hr 06/25/25 00:00: Urine Color Brown, Urine Clarity Turbid, Urine pH 5.0, Ur Specific [place] 1.020, Urine Protein 500 H, Urine Glucose (UA) 50 H, Urine Ketones 5 H, Urine Occult Blood 250 H, Urine Nitrite Positive H, Urine Bilirubin 3 H, Urine Urobilinogen 1 H, Ur Leukocyte Esterase 500 H, Urine RBC 50-100 SEEN, Urine WBC 50-100 SEEN, Ur Squamous Epith Cells 0-5 SEEN, Ur Transition Epith Cell 0-5 SEEN, Ur Renal Epithelial Cell 0-5 SEEN, Urine Bacteria 3+, Fine Granular Casts 5-10 SEEN, Urine Mucus 0 SEEN 06/25/25 07:55: Total Creatine Kinase 119, Triglycerides 211 H 06/25/25 12:12: POC Glucose 175 H 06/25/25 18:53: POC Glucose 207 H 06/25/25 23:56: POC Glucose 192 H 06/26/25 04:50: WBC 22.3 H, RBC 4.25, Hgb 12.4, Hct 37.9, MCV 89.2 D, MCH 29.2, MCHC 32.7, RDW Std Deviation 54.0 H, RDW Coeff of Leif 16.7 H, Plt Count 190, MPV 11.3, Immature Gran % (Auto) 1.700 H, Neut % (Auto) 88.4 H, Lymph % (Auto) 4.7 L, Payne % (Auto) 4.4, Eos % (Auto) 0.4, Baso % (Auto) 0.4, Absolute Neuts (auto) 19.7 H, Absolute Lymphs (auto) 1.05, Nucleated RBC % 0.5, Sodium 136, Potassium 4.9, Chloride 96 L, Carbon Dioxide 16.0 L, Anion Gap 24 H, BUN 65 H, Creatinine 6.01 H, Estim Creat Clear Calc 8.53 L*, Est GFR (MDRD) Non-Af 7 L, BUN/Creatinine Ratio 10.8, Glucose 219 H, Calcium 8.0, Phosphorus 6.5 H, Magnesium 2.1 06/26/25 05:08: POC Glucose 202 H Micro: Microbiology 06/25/25 01:43 Blood Culture (Wb) - Arm Left Bacteria Detection (PCR) - Preliminary Staphylococcus aureus mecA Resistance Marker 06/25/25 01:43 Blood Culture (Wb) - Arm Left Blood Culture - Preliminary 06/25/25 01:43 Blood Culture (Wb) - Anticubital Right Blood Culture - Preliminary 06/25/25 07:00 Sputum, Induced/Lukens Gram Stain - Final ABG Data ABG results: ABG 06/25/25 09:17 Specimen Type ART Sample Site L Brach pH 7.42 Bicarbonate Actual 21.8 L Total CO2 23 Base Excess -3 L O2 Saturation 100 H O2 % 100.0 ABG pCO2 33.8 L ABG pO2 202 H Respiration Rate 18 O2 Delivery Device Adult Vent Vent Mode AC Tidal Volume 450.0 POC PEEP 5 Rhythm Strip Rhythm Strip: Sinus Rhythm Rate: 45 Cardiology Labs/Tests 06/25/25 00:00: Urine Color Brown, Urine Clarity Turbid, Urine pH 5.0, Ur Specific [place] 1.020, Urine Protein 500 H, Urine Glucose (UA) 50 H, Urine Ketones 5 H, Urine Occult Blood 250 H, Urine Nitrite Positive H, Urine Bilirubin 3 H, Urine Urobilinogen 1 H, Ur Leukocyte Esterase 500 H, Urine RBC 50-100 SEEN, Urine WBC 50-100 SEEN 06/25/25 07:55: Triglycerides 211 H 06/25/25 09:17: pH 7.42, Bicarbonate Actual 21.8 L, Base Excess -3 L, O2 Saturation 100 H, ABG pCO2 33.8 L, ABG pO2 202 H 06/26/25 04:50: WBC 22.3 H, RBC 4.25, Hgb 12.4, Hct 37.9, MCV 89.2 D, MCH 29.2, MCHC 32.7, Plt Count 190, MPV 11.3, Immature Gran % (Auto) 1.700 H, Neut % (Auto) 88.4 H, Lymph % (Auto) 4.7 L, [place] % (Auto) 4.4, Eos % (Auto) 0.4, Baso % (Auto) 0.4, Absolute Neuts (auto) 19.7 H, Nucleated RBC % 0.5, Sodium 136, Potassium 4.9, Chloride 96 L, Carbon Dioxide 16.0 L, Anion Gap 24 H, BUN 65 H, Creatinine 6.01 H, Est GFR (MDRD) Non-Af 7 L, BUN/Creatinine Ratio 10.8, Glucose 219 H, Calcium 8.0, Phosphorus 6.5 H, Magnesium 2.1 Rhythm: EKG: ECHO: Stress Test: Cardiac Cath: PCI: CT Surgery: Holter monitor: EPS: PPM: CXR: Chest CT Scan: Radiography Diagnostic Testing: Radiology Impression Echocardiogram 06/25/25 05:55 Interpretation Summary The left ventricular ejection fraction is 20 %. Normal LV size. Moderate concentric left ventricular hypertrophy. Moderately severe global right ventricular systolic dysfunction. Pulmonary artery systolic pressure is 64 mmHg. Ordering Physician: Ana Chambers Referring Physician: BRITTANI WILL Performed By: Rimma Jolly RCS
[2025-06-26] MEDS: Chlorhexidine 15 ML PO ×2 (09:16→21:42)
[2025-06-26] MEDS: APIXABAN 5 MG TABLET PO ×2 (09:16→21:41)
[2025-06-26] MEDS: Pantoprazole Sodium 40 MG in 0.9% Normal Saline (100mL MB+) 100 ML 330 MG IV ×2 (09:16→21:41)
[2025-06-26] MEDS: Piperacil/Tazobactam 3.375 GM in 0.9% Normal Saline (50mL MB+) 50 ML IV ×2 (09:24→21:41)
--- NOTE | 2025-06-26 10:09 | PCM.CONS.GEN ---
Assessment & Plan Assessment/Plan (1) Septic shock: (2) MRSA bacteremia: PLAN: Suspect HD line as source. Will need removal. Will repeat bcx today. Splinter hemorrhage seen on L 1st toe. Recommend thoracentesis of R side if possible with fluid studies and cx. TTE showed no vegetation. Cont vanc, zosyn for now. Will follow, thank you, d/w Dr. Zelaya HPI Consult Data Date of Consult: 06/26/25 HPI Narrative Reason for Consultation: bacteremia HPI Narrative: MISAEL MEDINA, is a 75 F with CHF, ESRD on HD TTS via R chest permacath, presented 06/25/25 to ED after fall at home due to syncope. BPs had been low recently. Taken to ED, cxs sent, given azithro and ceftriaxone, now in icu on vent, pressors, and vanc/zosyn. ROS unobtainable due to mental status. [facility] Medical History Aortic valve stenosis Congestive heart failure Hypertension Type 2 diabetes mellitus with diabetic polyneuropathy Pulmonary hypertension LV dysfunction MRSA (methicillin resistant staph aureus) culture positive Hypothyroidism Osteoporosis Morbid obesity with BMI of 45.0-49.9, adult Wears glasses Post-menopausal Thyroid disease Diabetes Uses wheelchair Ambulates with cane Arthritis High cholesterol Back pain TIA (transient ischemic attack) Dietary restriction Non-smoker History of pain when walking History of transesophageal echocardiography (DESTIN) Cardiology follow-up encounter Diabetes Home Medications ?Medication ?Instructions ?Recorded ?Last Taken ?Type atorvastatin 10 mg tablet 10 mg PO QHS cholesterol 08/31/22 03/12/25 History aspirin 81 mg chewable tablet 81 mg PO DAILYCM 90 days #90 tabs 10/21/24 03/13/25 Rx carvedilol 6.25 mg tablet (Coreg) 6.25 mg PO BID #60 tabs 12/01/24 03/13/25 Rx furosemide 40 mg tablet 40 mg PO QAM #30 tabs 03/12/25 03/13/25 Rx levothyroxine 100 mcg tablet 112 mcg PO DAILY thyroid 04/04/25 Unknown History (Synthroid) hydralazine 25 mg tablet 25 mg PO TID #270 tabs 05/25/25 Unknown Rx isosorbide dinitrate 20 mg tablet 20 mg PO TID #270 tabs 05/25/25 Unknown Rx Allergy/AdvReac Type Severity Reaction Status Date / Time No Known Allergies Allergy Verified 06/24/25 23:47 Family History Mother Hypertension Father Heart disease Surgical History Hx of colonoscopy Hx of cholecystectomy H/O: hysterectomy Social History household members: spouse Smoking Status: Never smoker alcohol intake: never substance use type: does not use caffeine: No Physical Exam Const no apparent distress HEENT normocephalic Eyes PERRL and EOMs intact bilaterally Neck supple and No nodes Resp Effort and Inspection: mechanically ventilated; Negative for uses accessory muscles Cardio Cardio Narrative: distant heart sounds Rate: bradycardia GI soft to palpation, non-tender and non-distended Extremity General Extremity: edema and no tenderness to palpation of joints or extremities Skin no rashes or lesions noted Skin Narrative: L 1st toe with splinter hemorrhage. R chest permacath mild redness Neuro Neuro Narrative: opens eyes to stim Lab / Micro Data Attestation: I reviewed the patient's lab results. 06/26/25 04:50 06/26/25 04:50 Labs: Laboratory Results - last 24 hr 06/25/25 00:00: Urine Color Brown, Urine Clarity Turbid, Urine pH 5.0, Ur Specific [place] 1.020, Urine Protein 500 H, Urine Glucose (UA) 50 H, Urine Ketones 5 H, Urine Occult Blood 250 H, Urine Nitrite Positive H, Urine Bilirubin 3 H, Urine Urobilinogen 1 H, Ur Leukocyte Esterase 500 H, Urine RBC 50-100 SEEN, Urine WBC 50-100 SEEN, Ur Squamous Epith Cells 0-5 SEEN, Ur Transition Epith Cell 0-5 SEEN, Ur Renal Epithelial Cell 0-5 SEEN, Urine Bacteria 3+, Fine Granular Casts 5-10 SEEN, Urine Mucus 0 SEEN 06/25/25 07:55: Total Creatine Kinase 119, Triglycerides 211 H 06/25/25 12:12: POC Glucose 175 H 06/25/25 18:53: POC Glucose 207 H 06/25/25 23:56: POC Glucose 192 H 06/26/25 04:50: WBC 22.3 H, RBC 4.25, Hgb 12.4, Hct 37.9, MCV 89.2 D, MCH 29.2, MCHC 32.7, RDW Std Deviation 54.0 H, RDW Coeff of Leif 16.7 H, Plt Count 190, MPV 11.3, Immature Gran % (Auto) 1.700 H, Neut % (Auto) 88.4 H, Lymph % (Auto) 4.7 L, [place] % (Auto) 4.4, Eos % (Auto) 0.4, Baso % (Auto) 0.4, Absolute Neuts (auto) 19.7 H, Absolute Lymphs (auto) 1.05, Nucleated RBC % 0.5, Sodium 136, Potassium 4.9, Chloride 96 L, Carbon Dioxide 16.0 L, Anion Gap 24 H, BUN 65 H, Creatinine 6.01 H, Estim Creat Clear Calc 8.53 L*, Est GFR (MDRD) Non-Af 7 L, BUN/Creatinine Ratio 10.8, Glucose 219 H, Calcium 8.0, Phosphorus 6.5 H, Magnesium 2.1 06/26/25 05:08: POC Glucose 202 H Micro: Microbiology 06/25/25 01:43 Blood Culture (Wb) - Arm Left Bacteria Detection (PCR) - Preliminary Staphylococcus aureus mecA Resistance Marker 06/25/25 01:43 Blood Culture (Wb) - Arm Left Blood Culture - Preliminary 06/25/25 01:43 Blood Culture (Wb) - Anticubital Right Blood Culture - Preliminary 06/25/25 07:00 Sputum, Induced/Lukens Gram Stain - Final Rhythm Strip Rhythm Strip: Sinus Rhythm Rate: 45 Imaging Radiology Impression Echocardiogram 06/25/25 05:55 Interpretation Summary The left ventricular ejection fraction is 20 %. Normal LV size. Moderate concentric left ventricular hypertrophy. Moderately severe global right ventricular systolic dysfunction. Pulmonary artery systolic pressure is 64 mmHg. Ordering Physician: Ana Chambers Referring Physician: BRITTANI WILL Performed By: Rimma Jolly RCS
[2025-06-26] MEDS: Norepinephrine 8 MG in 0.9% Normal Saline (250mL Bag) 242 ML 18.8 MG CONT INF (10:45)
--- NOTE | 2025-06-26 10:59 | PCM.PN.REN ---
Subjective Subjective No overnight events. Patient remains on ventilator support. Oxygenation improved. Some improvement in blood pressures and only on Levophed. Objective Data Objective Data Vital Signs: Vital Signs Temp Pulse Resp BP Pulse Ox O2 Del Method O2 Flow Rate 98.8 F 43 L 18 107/61 97 Mechanical Ventilator 50 06/26/25 08:00 06/26/25 09:13 06/26/25 09:13 06/26/25 09:15 06/26/25 09:13 06/26/25 09:00 06/26/25 01:00 FiO2 40 06/26/25 09:13 Oxygen Flow Rate (L/min) 50 Oxygen Delivery Method Mechanical Ventilator Weight: 98.8 kg Body Mass Index (BMI) 42.5 Intake & Output: Intake and Output for Last 24 Hours 06/24/25 06/25/25 06/26/25 23:59 23:59 23:59 Intake Total 3033.92 / 3082.97 557.84 / 557.84 Output Total 0 / 45 95 / 95 Balance 3033.92 / 3037.97 462.84 / 462.84 Lab / Micro Data 06/26/25 04:50 06/26/25 04:50 Labs: Laboratory Results - last 24 hr 06/25/25 00:00: Urine Color Brown, Urine Clarity Turbid, Urine pH 5.0, Ur Specific [place] 1.020, Urine Protein 500 H, Urine Glucose (UA) 50 H, Urine Ketones 5 H, Urine Occult Blood 250 H, Urine Nitrite Positive H, Urine Bilirubin 3 H, Urine Urobilinogen 1 H, Ur Leukocyte Esterase 500 H, Urine RBC 50-100 SEEN, Urine WBC 50-100 SEEN, Ur Squamous Epith Cells 0-5 SEEN, Ur Transition Epith Cell 0-5 SEEN, Ur Renal Epithelial Cell 0-5 SEEN, Urine Bacteria 3+, Fine Granular Casts 5-10 SEEN, Urine Mucus 0 SEEN 06/25/25 12:12: POC Glucose 175 H 06/25/25 18:53: POC Glucose 207 H 06/25/25 23:56: POC Glucose 192 H 06/26/25 04:50: WBC 22.3 H, RBC 4.25, Hgb 12.4, Hct 37.9, MCV 89.2 D, MCH 29.2, MCHC 32.7, RDW Std Deviation 54.0 H, RDW Coeff of Leif 16.7 H, Plt Count 190, MPV 11.3, Immature Gran % (Auto) 1.700 H, Neut % (Auto) 88.4 H, Lymph % (Auto) 4.7 L, [place] % (Auto) 4.4, Eos % (Auto) 0.4, Baso % (Auto) 0.4, Absolute Neuts (auto) 19.7 H, Absolute Lymphs (auto) 1.05, Nucleated RBC % 0.5, Sodium 136, Potassium 4.9, Chloride 96 L, Carbon Dioxide 16.0 L, Anion Gap 24 H, BUN 65 H, Creatinine 6.01 H, Estim Creat Clear Calc 8.53 L*, Est GFR (MDRD) Non-Af 7 L, BUN/Creatinine Ratio 10.8, Glucose 219 H, Calcium 8.0, Phosphorus 6.5 H, Magnesium 2.1 06/26/25 05:08: POC Glucose 202 H Micro: Microbiology 06/25/25 01:43 Blood Culture (Wb) - Arm Left Bacteria Detection (PCR) - Preliminary Staphylococcus aureus mecA Resistance Marker 06/25/25 01:43 Blood Culture (Wb) - Arm Left Blood Culture - Preliminary 06/25/25 01:43 Blood Culture (Wb) - Anticubital Right Blood Culture - Preliminary 06/25/25 07:00 Sputum, Induced/Lukens Gram Stain - Final 06/25/25 01:41 Mucosa - Nose SARS-CoV-2, Influenza & RSV (PCR) - Final Radiography Diagnostic Testing: Radiology Impression Echocardiogram 06/25/25 05:55 Interpretation Summary The left ventricular ejection fraction is 20 %. Normal LV size. Moderate concentric left ventricular hypertrophy. Moderately severe global right ventricular systolic dysfunction. Pulmonary artery systolic pressure is 64 mmHg. Ordering Physician: Ana Chambers Referring Physician: BRITTANI WILL Performed By: Rimma Jolly RCS Rhythm Strip Rhythm Strip: Sinus Rhythm Rate: 45 Physical Exam Narrative Alert, on ventilator support no obvious distress s1s2 no murmurs; bradycardic lungs clear anteriorly abdomen soft no organomegaly no edema no cyanosis Indwelling [place] with scant yellow urine in tubing Tunneled hemodialysis catheter right chest area dressing clean, dry and intact Assessment & Plan Assessment/Plan (1) Acute on chronic renal failure: QUALIFIERS: Acute renal failure type: unspecified Chronic kidney disease stage: stage 3 (moderate) Chronic kidney disease stage 3 subtype: stage 3a (GFR 45-59) Qualified Code(s): N17.9 - Acute kidney failure, unspecified; N18.31 - Chronic kidney disease, stage 3a PLAN: Acute renal failure, dialysis dependent, Wednesday, , Wednesday schedule. Last hemodialysis June 23. Today electrolytes are acceptable. Improvement in oxygenation, FiO2 40%. Some improvement in blood pressures and currently on Levophed 10 mcg. Overnight patient developed bradycardia, cardiology consulted. Hold off on renal replacement therapy today. Discussed with ID, blood cultures MRSA positive. ID recommending removal of tunneled hemodialysis catheter. Will hold off on any renal placement therapy today, evaluate for dialysis/CRRT tomorrow. Assessment and plan reviewed with Dr. Gupta.
--- NOTE | 2025-06-26 14:42 | CASEMGMT ---
[facility]ON [facility] Assessment Face to Face with patient for initial transition planning/care coordination assessment. Pt is currently on the ventilator but is A&O and able to shake head yes/no. Pt's at bedside and willing to assist. Care providers, pharmacy, and demographics verified. Admitting dx: Fall, leukocytosis of unclear etiology, New PAF LACE Strata: 3 PCP: Donal Castle Specialists: [facility], Nephrology through [facility] ([place]) Preferred Pharmacy: [facility] Insurance: [facility] Prescription Benefit: Yes LNOK: Kd (H), Faustino (Son) Living Arrangements: Pt lives with her in a single story home with 4 steps to enter ADLs/IADLs: Pt's states that the pt is mainly indep at baseline and that he only help with simple tasks such as cooking and laundry Transportation: DME: Denies home oxygen use. CM to follow. Functioning BGM with sufficient supplies including test strips, EtOH swab, and lancets. Cane. WC. FWW. Walk in shower with shower chair and grab bars. Denies medical alert system resources at this time HHC/SNF: Reports recent hx @ [facility] with skilled HHC subsequently (Cannot recall the name of the agency) HD: reports that the pt attends [facility] in [place] for OP HD q TTS @ 1100 and that he provides transportation. TC to [facility] to notify of admission. Updated [facility] of pt's status as well as the plan of care. [facility] is requesting documentation regarding new access if the tunneled catheter is removed (Fax ) Pt?s goal: TBD Plan: TBD. Today is VD#2. ID, nephrology, and cardiology are consulted. CM and SW to continue to follow for DC planning. Elver Chavez RN, CM
--- NOTE | 2025-06-26 15:14 | PN.CC_ITS ---
Objective Data Objective Data Vital Signs: Vital Signs Last response 3 Temperature 37.0 C 06/26/25 12:00 Temperature Source Temporal 06/26/25 12:00 Pulse Rate 42 L 06/26/25 14:41 Respiratory Rate 18 06/26/25 14:41 Respiratory Effort Mechanically Ventilated 06/26/25 12:00 Respiratory Depth Normal 06/26/25 04:00 Respiratory Pattern Normal 06/26/25 14:41 Blood Pressure 137/63 H 06/26/25 14:00 Blood Pressure Mean 87 06/26/25 14:00 Blood Pressure Source Monitor 06/26/25 14:00 Blood Pressure Position Semi-Fowlers 06/25/25 07:45 Blood Pressure Location Left Forearm 06/25/25 07:45 Pulse Ox 97 06/26/25 14:41 Oxygen Delivery Method Mechanical Ventilator 06/26/25 14:00 Oxygen Flow Rate (L/min) 50 06/26/25 01:00 Fraction of Inspired Oxygen (FIO2) 40 06/26/25 14:41 I&O: I&O Last 24 Hours 3 06/25/25 06/26/25 06/26/25 23:59 11:59 23:59 Intake Total 904.26 / 3082.97 612.54 / 906.44 293.90 / 906.44 Output Total 0 / 45 95 / 95 Balance 904.26 / 3037.97 517.54 / 811.44 293.90 / 811.44 I&O: Total Stay 3 06/24/25 23:41 thru 06/26/25 14:00 Intake Total 3940.36 Output Total 95 Balance 3845.36 Lines:: permacath Ventilator:: ETT Current Meds Ordered / Administered: Current meds ordered / Administered 3 Generic Name Dose Route Start Last Admin Trade Name Freq PRN Reason Stop Dose Admin Acetaminophen 650 mg 06/25/25 03:56 Acetaminophen 325 Mg Tablet PO Q4H PRN PRN Fever, pain 1-10/10 Acetaminophen 650 mg 06/25/25 22:48 06/25/25 23:59 Acetaminophen 650 Mg/20 Ml Udc GT 650 mg Q6H PRN PRN Administration Pain 1-10 or Fever Al Hydroxide/Mg Hydroxide 30 ml 06/25/25 03:56 Mag Hydrox/Al Hydrox/Simeth 30 Ml Udc PO Q6H PRN PRN Gastric Burning Albuterol Sulfate 2.5 mg 06/25/25 03:56 Albuterol 2.5 Mg/3 Ml Vial.Neb. INHALATION Q2H PRN PRN Dyspnea, wheezing Apixaban 5 mg 06/25/25 10:00 06/26/25 09:16 Apixaban 5 Mg Tablet PO 5 mg BID YOLI Administration Atorvastatin Calcium 10 mg 06/25/25 22:00 06/25/25 21:32 Atorvastatin Calcium 10 Mg Tablet PO 10 mg QHS YOLI Administration Chlorhexidine Gluconate 15 ml 06/25/25 10:00 06/26/25 09:16 Chlorhexidine 15 Ml PO 15 ml BID YOLI Administration Glucagon 1 mg 06/25/25 03:56 Glucagon 1 Mg/Ml Syringe IM X1 PRN HYPOGLYCEMIA Protocol Guaifenesin 20 ml 06/25/25 03:56 Guaifenesin 10 Ml Udc (200mg/10ml) PO Q4H PRN PRN COUGH Hydralazine HCl 10 mg 06/25/25 03:56 Hydralazine 20 Mg/Ml Vial IV Q4H PRN PRN SBP > 160 Protocol Hydrocortisone Sodium Succinate 50 mg 06/25/25 12:00 06/26/25 11:59 Hydrocortisone Sod Succinate 100 Mg/2 Ml Vial IV 50 mg Q6 YOLI Administration Dextrose 250 mls @ 0 mls/hr 06/25/25 03:56 Dextrose 10%-Water IV .Q0M PRN HYPOGLYCEMIA Protocol As Directed Norepinephrine Bitartrate 8 mg 250 mls @ 9.375 mls/hr 06/25/25 06:21 06/26/25 14:00 / Sodium Chloride CONT INF 10 mcg/min .[id number] YOLI 18.8 mls/hr Titration Protocol 5 MCG/MIN Vancomycin IV-PHARMACY TO DOSE 500 mls @ 250 mls/hr 06/25/25 06:21 1 each/ Sodium Chloride IV PRN PRN Rx to Dose Protocol Piperacillin Sod/Tazobactam 50 mls @ 12.5 mls/hr 06/25/25 06:30 06/26/25 13:30 Sod 3.375 gm/ Sodium Chloride IV Infused Q12 YOLI Infusion Propofol 1,000 mg in 100 mls @ 5.682 mls/hr 06/25/25 06:40 06/26/25 05:30 Diprivan CONT INF Not Given .Q12H YOLI Protocol 10 MCG/KG/MIN Fentanyl 100 mls @ 5 mls/hr 06/25/25 06:40 06/26/25 14:00 CONT INF 125 mcg/hr UD YOLI 12.5 mls/hr Titration Protocol 50 MCG/HR Pantoprazole Sodium 40 mg/ 100 mls @ 330 mls/hr 06/25/25 10:00 06/26/25 09:50 Sodium Chloride IV Infused Q12 YOLI Infusion Vasopressin 20 units/ Sodium 25 mls @ 3 mls/hr 06/25/25 08:55 06/26/25 11:02 Chloride CONT INF Not Given .Q8H20M YOLI 0.04 UNITS/MIN Sodium Chloride 250 mls @ 15 mls/hr 06/26/25 03:05 IV .[id number] PRN Saline Flush Sodium Chloride 250 mls @ 15 mls/hr 06/26/25 03:05 IV .[id number] PRN Additional IVPB Infusion Enteral Nutritional Formula 1,000 mls @ 35 mls/hr 06/26/25 10:45 06/26/25 11:05 Nepro Carb Steady GT Not Given .[id number] [facility] Insulin Human Lispro 0 unit 06/25/25 12:00 06/26/25 11:59 Insulin Lispro 100 Unit/Ml Insuln.Pen SC 2 u Q6 [facility] Administration Protocol Levothyroxine Sodium 112 mcg 06/25/25 06:00 06/26/25 05:10 Levothyroxine 112 Mcg Tablet PO 112 mcg DAILY@0600 YOLI Administration Melatonin 3 mg 06/25/25 03:56 Melatonin 3 Mg Tablet PO QHS PRN PRN INSOMNIA Nystatin 1 applic 06/25/25 03:56 06/26/25 13:34 Nystatin Powder 15gm Bottle TOPICAL 1 applic TID [facility] Administration Protocol Ondansetron HCl 4 mg 06/25/25 03:56 Ondansetron 4 Mg/2 Ml Vial IV Q8H PRN PRN NAUSEA/VOMITING Senna/Docusate Sodium 2 tablet 06/25/25 03:56 Senna/Docusate Sodium 1 Tablet PO BID PRN PRN Constipation Sodium Chloride 10 - 40 ml 06/25/25 04:07 06/25/25 23:59 0.9% Saline Lock 10 Ml Syringe IV 10 ml UD PRN Administration SALINE FLUSH Sodium Chloride 5 ml 06/25/25 06:37 Sodium Cl For Inhalation 15 Ml Vial.Neb. INHALATION Q5M PRN Suctioning Sodium Chloride 10 - 40 ml 06/26/25 03:05 0.9% Saline Lock 10 Ml Syringe IV UD PRN SALINE FLUSH Lab / Micro Data Attestation: I reviewed the patient's lab results. 06/26/25 04:50 06/26/25 04:50 Labs: Laboratory Results - last 24 hr 06/25/25 00:00: Urine Color Brown, Urine Clarity Turbid, Urine pH 5.0, Ur Specific [place] 1.020, Urine Protein 500 H, Urine Glucose (UA) 50 H, Urine Ketones 5 H, Urine Occult Blood 250 H, Urine Nitrite Positive H, Urine Bilirubin 3 H, Urine Urobilinogen 1 H, Ur Leukocyte Esterase 500 H, Urine RBC 50-100 SEEN, Urine WBC 50-100 SEEN, Ur Squamous Epith Cells 0-5 SEEN, Ur Transition Epith Cell 0-5 SEEN, Ur Renal Epithelial Cell 0-5 SEEN, Urine Bacteria 3+, Fine Granular Casts 5-10 SEEN, Urine Mucus 0 SEEN 06/25/25 18:53: POC Glucose 207 H 06/25/25 23:56: POC Glucose 192 H 06/26/25 04:50: WBC 22.3 H, RBC 4.25, Hgb 12.4, Hct 37.9, MCV 89.2 D, MCH 29.2, MCHC 32.7, RDW Std Deviation 54.0 H, RDW Coeff of Leif 16.7 H, Plt Count 190, MPV 11.3, Immature Gran % (Auto) 1.700 H, Neut % (Auto) 88.4 H, Lymph % (Auto) 4.7 L , [place] % (Auto) 4.4, Eos % (Auto) 0.4, Baso % (Auto) 0.4, Absolute Neuts (auto) 19.7 H, Absolute Lymphs (auto) 1.05, Nucleated RBC % 0.5, Sodium 136, Potassium 4.9, Chloride 96 L, Carbon Dioxide 16.0 L, Anion Gap 24 H, BUN 65 H, Creatinine 6.01 H, Estim Creat Clear Calc 8.53 L*, Est GFR (MDRD) Non-Af 7 L, BUN/Creatinine Ratio 10.8, Glucose 219 H, Calcium 8.0, Phosphorus 6.5 H, Magnesium 2.1 06/26/25 05:08: POC Glucose 202 H 06/26/25 11:57: POC Glucose 206 H Micro: Microbiology 06/25/25 01:43 Blood Culture (Wb) - Arm Left Bacteria Detection (PCR) - Final Meth. resistant Staph. aureus mecA Resistance Marker 06/25/25 01:43 Blood Culture (Wb) - Arm Left Blood Culture - Preliminary Staphylococcus aureus 06/25/25 01:43 Blood Culture (Wb) - Anticubital Right Blood Culture - Preliminary Staphylococcus aureus 06/25/25 07:00 Sputum, Induced/Lukens Gram Stain - Final Rhythm Strip Rhythm Strip: Sinus Rhythm Rate: 45 Assessment and Plan . Assessment and plan: Assessment & Plan Assessment/Plan (1) Acute hypoxemic respiratory failure: (2) Acute HFrEF (heart failure with reduced ejection fraction): (3) Aortic valve stenosis: (4) Septic shock due to MRSA bactermia (5) Diabetes (6) ESRD -cont coverage for MRSA bacteremia -will need permacath removed and new HD access placed; likely get cultures to clear and stage procedures so there is a line holiday -encephalopathic prior to intubation which may complicate weaning; once PC removal done begin SATs and SBTs as able -as noted complicates all of the above Critical Care Time: 34 minutes The entirety of this encounter was done via Telemedicine Physical Exam Const Constitutional Narrative: intubated/lightly sedated General Appearance: patient mechanically ventilated HEENT normocephalic Chest Chest Narrative: symmetric chest excursion Resp Resp Narrative: CTAB, well syncronized with vent Cardio regular rate, regular rhythm and no murmurs GI normal to inspection, nondistended, normoactive bowel sounds Inspection: anasarca present Extremity Extremity Narrative: no clubbing or cyanosis Neuro Sensorium / Orientation: sedated on vent Subjective Subjective Blood Cx MRSA +
--- NOTE | 2025-06-26 15:25 | PCM.HOSP.N ---
Hospitalist Note I talked to the patient's . Updated about the clinical conditions including acute on chronic /biventricular failure, pulmonary hypertension, MRSA bacteremia, acute hypoxic respiratory failure on ventilator, circulatory failure on Levophed. Patient awake I told the patient that patient was evaluated by multiple consultants including ID who recommended removal of dialysis catheter which was put 2 months ago in [place]. Facilities consulted. Clinical Impression(s) from Imaging Studies Brain CT 06/25/25 00:44 IMPRESSION: No acute intracranial findings Reading Location: [facility] [address] 06/25/25 00:44 IMPRESSION: No acute cervical spine injury. Reading Location: [facility] Chest CTA 06/25/25 00:44 IMPRESSION: Moderate right effusion, adjacent lung compression. No embolism, dissection, or pneumonia. Reading Location: [facility] Abdomen/Pelvis CT 06/25/25 01:30 IMPRESSION: Possible third-spacing. Reading Location: [facility] Echocardiogram 06/25/25 05:55 Interpretation Summary The left ventricular ejection fraction is 20 %. Normal LV size. Moderate concentric left ventricular hypertrophy. Moderately severe global right ventricular systolic dysfunction. Pulmonary artery systolic pressure is 64 mmHg. Ordering Physician: Ana Chambers Referring Physician: BRITTANI WILL Performed By: Rimma Jolly RCS Chest X-Ray 06/25/25 07:10 IMPRESSION: Tubes and lines in position. There is cardiomegaly with mild central vascular congestion. There is moderate right effusion, improved. There is infiltrate throughout the right lung with consolidation at the right base. Reading Location: [facility]
--- NOTE | 2025-06-26 15:44 | ED.RN ---
15:30 Dr Perdomo general surgeon at bedside. Spoke with family at this time and discussed taking out the tunneled dialysis catheter. Family agreeable. Tunneled line removed at 15:40 pressure held [address] perdomo. Dressing placed. Patient tolerated well.
--- NOTE | 2025-06-26 16:31 | EX.PCM.CON.S ---
Assessment & Plan Assessment/Plan (1) MRSA bacteremia: PLAN: Plan The patient is a 75-year-old female who presented with sepsis and MRSA bacteremia likely related to an infected right sided tunneled dialysis catheter. The catheter was successfully removed today. The catheter tip was sent for culture. Patient will certainly require IV antibiotics to clear the bacteremia prior to any reinsertion of another dialysis catheter. This will be at the discretion of infectious disease. HPI Consult Data Date of Consult: 06/26/25 HPI Narrative Reason for Consultation: Infected hemodialysis catheter HPI Narrative: MISAEL MEDINA, is a 75 F who was admitted to [facility] on June 25 with altered mental status and fall at home. Patient has multiple medical problems including hypertension, congestive heart failure hyperlipidemia as well as end-stage renal disease on hemodialysis. She had a right sided tunneled catheter placed back in February or March of this year. It sounds as though this was intermittently kinking and had a more recent tunneled catheter placed on the same side a few weeks ago. She was subsequently hospitalized with a leukocytosis and sepsis. She was found to have MRSA bacteremia and it was felt that the catheter was likely the cause for the bacteremia. General surgery consult was obtained to remove the catheter. Patient is currently on the ventilator in the ICU on [facility] Medical History Aortic valve stenosis Congestive heart failure Hypertension Type 2 diabetes mellitus with diabetic polyneuropathy Pulmonary hypertension LV dysfunction MRSA (methicillin resistant staph aureus) culture positive Hypothyroidism Osteoporosis Morbid obesity with BMI of 45.0-49.9, adult Wears glasses Post-menopausal Thyroid disease Diabetes Uses wheelchair Ambulates with cane Arthritis High cholesterol Back pain TIA (transient ischemic attack) Dietary restriction Non-smoker History of pain when walking History of transesophageal echocardiography (DESTIN) Cardiology follow-up encounter Diabetes Home Medications ?Medication ?Instructions ?Recorded ?Last Taken ?Type atorvastatin 10 mg tablet 10 mg PO QHS cholesterol 08/31/22 03/12/25 History aspirin 81 mg chewable tablet 81 mg PO DAILYCM 90 days #90 tabs 10/21/24 03/13/25 Rx carvedilol 6.25 mg tablet (Coreg) 6.25 mg PO BID #60 tabs 12/01/24 03/13/25 Rx furosemide 40 mg tablet 40 mg PO QAM #30 tabs 03/12/25 03/13/25 Rx levothyroxine 100 mcg tablet 112 mcg PO DAILY thyroid 04/04/25 Unknown History (Synthroid) hydralazine 25 mg tablet 25 mg PO TID #270 tabs 05/25/25 Unknown Rx isosorbide dinitrate 20 mg tablet 20 mg PO TID #270 tabs 05/25/25 Unknown Rx Allergy/AdvReac Type Severity Reaction Status Date / Time No Known Allergies Allergy Verified 06/24/25 23:47 Family History Mother Hypertension Father Heart disease Surgical History Hx of colonoscopy Hx of cholecystectomy H/O: hysterectomy Social History household members: spouse Smoking Status: Never smoker alcohol intake: never substance use type: does not use caffeine: No Physical Exam Narrative Patient is awake and alert and in no acute distress. She is intubated and appears overall fairly comfortable Examination of the right upper chest reveals the tunneled dialysis catheter. There is slight erythema at the insertion site. No lex drainage was seen initially. Procedure note: After obtaining informed consent from the patient's , the right upper chest region was prepped and draped in the usual sterile manner using Betadine solution. I injected some local anesthetic consisting of 1% lidocaine into the area of the insertion. The anchoring sutures were removed. Curved hemostat was then used to spread the skin opening slightly. Upon doing so, the tunneled catheter was then easily able to be removed. There was some slight purulent tinged fluid that came out with the catheter. The catheter tip was sent for culture. Manual pressure was held on the area for several minutes and then a dressing was applied. She tolerated this well Lab / Micro Data 06/26/25 04:50 06/26/25 04:50 Labs: Laboratory Results - last 24 hr 06/25/25 00:00: Urine Color Brown, Urine Clarity Turbid, Urine pH 5.0, Ur Specific [place] 1.020, Urine Protein 500 H, Urine Glucose (UA) 50 H, Urine Ketones 5 H, Urine Occult Blood 250 H, Urine Nitrite Positive H, Urine Bilirubin 3 H, Urine Urobilinogen 1 H, Ur Leukocyte Esterase 500 H, Urine RBC 50-100 SEEN, Urine WBC 50-100 SEEN, Ur Squamous Epith Cells 0-5 SEEN, Ur Transition Epith Cell 0-5 SEEN, Ur Renal Epithelial Cell 0-5 SEEN, Urine Bacteria 3+, Fine Granular Casts 5-10 SEEN, Urine Mucus 0 SEEN 06/25/25 18:53: POC Glucose 207 H 06/25/25 23:56: POC Glucose 192 H 06/26/25 04:50: WBC 22.3 H, RBC 4.25, Hgb 12.4, Hct 37.9, MCV 89.2 D, MCH 29.2, MCHC 32.7, RDW Std Deviation 54.0 H, RDW Coeff of Leif 16.7 H, Plt Count 190, MPV 11.3, Immature Gran % (Auto) 1.700 H, Neut % (Auto) 88.4 H, Lymph % (Auto) 4.7 L, [place] % (Auto) 4.4, Eos % (Auto) 0.4, Baso % (Auto) 0.4, Absolute Neuts (auto) 19.7 H, Absolute Lymphs (auto) 1.05, Nucleated RBC % 0.5, Sodium 136, Potassium 4.9, Chloride 96 L, Carbon Dioxide 16.0 L, Anion Gap 24 H, BUN 65 H, Creatinine 6.01 H, Estim Creat Clear Calc 8.53 L*, Est GFR (MDRD) Non-Af 7 L, BUN/Creatinine Ratio 10.8, Glucose 219 H, Calcium 8.0, Phosphorus 6.5 H, Magnesium 2.1 06/26/25 05:08: POC Glucose 202 H 06/26/25 11:57: POC Glucose 206 H Micro: Microbiology 06/25/25 01:43 Blood Culture (Wb) - Arm Left Bacteria Detection (PCR) - Final Meth. resistant Staph. aureus mecA Resistance Marker 06/25/25 01:43 Blood Culture (Wb) - Arm Left Blood Culture - Preliminary Staphylococcus aureus 06/25/25 01:43 Blood Culture (Wb) - Anticubital Right Blood Culture - Preliminary Staphylococcus aureus 06/25/25 07:00 Sputum, Induced/Lukens Gram Stain - Final Rhythm Strip Rhythm Strip: Sinus Rhythm Rate: 45
[2025-06-26] MEDS: 0.9% Saline Lock 10 ML Syringe IV (22:05)
[2025-06-26] MEDS: 0.9% Normal Saline (250mL Bag) 250 ML 15 ML IV (22:05)
[2025-06-26] MEDS: Norepinephrine 8 MG in 0.9% Normal Saline (250mL Bag) 242 ML 9.4 MG CONT INF (22:38)
[2025-06-27] VITALS (56 sets, daily range): BP systolic 76–146; BP diastolic 43–115; PULSE 36–65; RESP 14–20; TEMP 36.6–36.7; O2SAT 90–99; BMI 42.8
[2025-06-27] MEDS: fentaNYL drip 100 ML 17.5 MCG CONT INF (02:06)
--- NOTE | 2025-06-27 03:21 | RAD_ITS ---
PROCEDURE: CHEST 1 VIEW (PORTABLE) 06/27/2025 REASON FOR EXAM: RESPIRATORY FAILURE TECHNIQUE: Frontal view of the chest. COMPARISON: 06/25/2025 FINDINGS: Lordotic position. ETT tip between inlet and jimi. Enteric tube tip in stomach lumen. Borderline enlarged heart. Under aerated lungs. Persistent moderate right effusion, adjacent atelectasis/consolidation. RAD/Chest 1 View (Portable) IMPRESSION: Persistent right effusion with adjacent airspace disease. Reading Location: [facility]
[2025-06-27 05:33] LABS: Hematocrit 35.4 % (37-47); Hemoglobin 12.0 g/dL (12.0-15.0); Immature Granulocytes Count 0.450 X10^3/uL (0.0-0.0); Mean Corp Hgb Conc 33.9 g/dL (32-36); Mean Corpuscular Volume 86.3 fL (81-99); Mean Platelet Vol. 10.1 fl (6.2-12.0); NRBC Flagged by Analyzer 0.2 % (0-5); POSITIVE DIFFERENTIAL YES; Platelet Count 175 K/mm3 (150-450); RBC Distribution Width CV 16.6 % (11.6-14.6); RBC Distribution Width SD 51.4 fl (35.1-43.9); Red Blood Count 4.10 M/mm3 (4.2-5.4); White Blood Count 23.2 K/mm3 (4.4-11.0)
[2025-06-27 05:51] LABS: Differential Indicated SCAN CRITERIA MET
[2025-06-27 06:07] LABS: Differential Comment SCANNED
[2025-06-27 06:08] LABS: Acanthocytes RARE; Anisocytosis 1+; Crenated RBC 2+; Polychromasia 1+; Target Cells RARE
[2025-06-27 06:22] LABS: AST(SGOT) 42 U/L (<=31); Alanine Aminotransfer ALT/SGPT 52 U/L (<=34); Albumin, Serum 2.6 g/dL (3.4-4.8); Alkaline Phosphatase 149 U/L (35-104); Anion Gap 19 (5-15); BUN 78 mg/dL (4-19); BUN/Creat Ratio 12.5 RATIO (10-20); Bilirubin, Direct 0.47 mg/dL (0.00-0.30); Calcium,Total 8.0 mg/dL (7.6-11.0); Carbon Dioxide 19.6 mmol/L (21.0-32.0); Chloride 99 mmol/L (98-108); Estimated Creatinine Clearance 8.26 ml/min (50-250); Globulin 2.6 g/dL (2.2-4.2); Glucose 193 mg/dL (70-99); Potassium 4.8 mmol/L (3.3-5.1)
[2025-06-27] MEDS: fentaNYL drip 100 ML 20 MCG CONT INF ×4 (07:00→21:00)
--- NOTE | 2025-06-27 07:04 | PN.SURG_ITS ---
Subjective Subjective Patient evaluated intubated and slightly restless. Per nursing report, no concerns or issues with catheter removal site. Objective Data Objective Data Vital Signs: Vital Signs Temp Pulse Resp BP Pulse Ox O2 Del Method O2 Flow Rate 98 F 49 L 18 128/60 H 99 Mechanical Ventilator 50 06/27/25 04:00 06/27/25 06:05 06/27/25 06:05 06/27/25 06:00 06/27/25 06:05 06/27/25 06:00 06/26/25 01:00 FiO2 30 06/27/25 06:05 Oxygen Flow Rate (L/min) 50 Oxygen Delivery Method Mechanical Ventilator Weight: 219 lb 9.286 oz Body Mass Index (BMI) 42.8 Intake & Output: Intake and Output for Last 24 Hours 06/25/25 06/26/25 06/27/25 23:59 23:59 23:59 Intake Total 3033.92 / 3082.97 1315.60 / 1363.75 291.54 / 291.54 Output Total 0 / 45 120 / 120 110 / 110 Balance 3033.92 / 3037.97 1195.60 / 1243.75 181.54 / 181.54 Lab / Micro Data 06/27/25 05:20 06/27/25 05:20 Labs: Laboratory Results - last 24 hr 06/26/25 11:57: POC Glucose 206 H 06/26/25 18:26: POC Glucose 187 H 06/26/25 23:28: POC Glucose 213 H 06/27/25 05:20: WBC 23.2 H, RBC 4.10 L, Hgb 12.0, Hct 35.4 L, MCV 86.3, MCH 29.3, MCHC 33.9, RDW Std Deviation 51.4 H, RDW Coeff of Leif 16.6 H, Plt Count 175, MPV 10.1, Immature Gran % (Auto) 1.900 H, Neut % (Auto) 89.6 H, Lymph % (Auto) 4.1 L, [place] % (Auto) 4.0, Eos % (Auto) 0.1, Baso % (Auto) 0.3, Absolute Neuts (auto) 20.8 H, Absolute Lymphs (auto) 0.94, Nucleated RBC % 0.2, Differential Comment SCANNED, Platelet Estimate ADEQUATE, Polychromasia 1+, Anisocytosis 1+, Target Cells RARE, Ovalocytes 1+, Crenated Cell 2+, Acanthocytes (Spur) RARE, Sodium 137, Potassium 4.8, Chloride 99, Carbon Dioxide 19.6 L, Anion Gap 19 H, BUN 78 H, Creatinine 6.24 H, Estim Creat Clear Calc 8.26 L*, Est GFR (MDRD) Non-Af 7 L, BUN/Creatinine Ratio 12.5, Glucose 193 H, Calcium 8.0, Total Bilirubin 0.65, Direct Bilirubin 0.47 H, AST 42 H, ALT 52 H, Alkaline Phosphatase 149 H, Total Protein 5.3 L, Albumin 2.6 L, Globulin 2.6, Albumin/Globulin Ratio 1.0 06/27/25 05:33: POC Glucose 181 H Micro: Microbiology 06/25/25 01:43 Blood Culture (Wb) - Arm Left Bacteria Detection (PCR) - Final Meth. resistant Staph. aureus mecA Resistance Marker 06/25/25 01:43 Blood Culture (Wb) - Arm Left Blood Culture - Preliminary Staphylococcus aureus 06/25/25 01:43 Blood Culture (Wb) - Anticubital Right Blood Culture - Preliminary Staphylococcus aureus 06/25/25 07:00 Sputum, Induced/Lukens Gram Stain - Final 06/25/25 01:41 Mucosa - Nose SARS-CoV-2, Influenza & RSV (PCR) - Final Radiography Diagnostic Testing: Radiology Impression Chest X-Ray 06/27/25 03:21 IMPRESSION: Persistent right effusion with adjacent airspace disease. Reading Location: [place] [address] Rhythm Strip Rhythm Strip: Sinus Rhythm Rate: 45 Physical Exam Chest Chest Narrative: Right chest- previous catheter site with op-site in place. Minimal amount of dried blood noted. Assessment & Plan Assessment/Plan (1) MRSA bacteremia: (2) Hemodialysis catheter infection: PLAN: Plan I am following this patient in conjunction with Dr. Perdomo. He will independently evaluate this patient. S/p catheter removal Keep op-site in place until tomorrow I will change to new op-site tomorrow We will continue to follow this patient Patient will likely need dialysis access at some point Charges/Coding Visit Charges Inpatient E&M: 71672 Subs Hosp L2
--- NOTE | 2025-06-27 07:15 | PN.HOSP_ITS ---
Reason for Visit Chief Complaint: Fall, closed head trauma, transient LOC. Objective Data Objective Data Vital Signs: Vital Signs Temp Pulse Resp BP Pulse Ox O2 Del Method O2 Flow Rate 98 F 46 L 18 88/66 L 94 Mechanical Ventilator 50 06/27/25 04:00 06/27/25 07:03 06/27/25 07:03 06/27/25 07:00 06/27/25 07:03 06/27/25 07:00 06/26/25 01:00 FiO2 30 06/27/25 07:03 Oxygen Flow Rate (L/min) 50 Oxygen Delivery Method Mechanical Ventilator Weight: 219 lb 9.286 oz Body Mass Index (BMI) 42.8 Intake & Output: Intake and Output for Last 24 Hours 06/25/25 06/26/25 06/27/25 23:59 23:59 23:59 Intake Total 3033.92 / 3082.97 1315.60 / 1363.75 300.94 / 300.94 Output Total 0 / 45 120 / 120 110 / 110 Balance 3033.92 / 3037.97 1195.60 / 1243.75 190.94 / 190.94 Lab / Micro Data 06/27/25 05:20 06/27/25 05:20 Labs: Laboratory Results - last 24 hr 06/26/25 11:57: POC Glucose 206 H 06/26/25 18:26: POC Glucose 187 H 06/26/25 23:28: POC Glucose 213 H 06/27/25 05:20: WBC 23.2 H, RBC 4.10 L, Hgb 12.0, Hct 35.4 L, MCV 86.3, MCH 29.3, MCHC 33.9, RDW Std Deviation 51.4 H, RDW Coeff of Leif 16.6 H, Plt Count 175, MPV 10.1, Immature Gran % (Auto) 1.900 H, Neut % (Auto) 89.6 H, Lymph % (Auto) 4.1 L, [place] % (Auto) 4.0, Eos % (Auto) 0.1, Baso % (Auto) 0.3, Absolute Neuts (auto) 20.8 H, Absolute Lymphs (auto) 0.94, Nucleated RBC % 0.2, Differential Comment SCANNED, Platelet Estimate ADEQUATE, Polychromasia 1+, Anisocytosis 1+, Target Cells RARE, Ovalocytes 1+, Crenated Cell 2+, Acanthocytes (Spur) RARE, Sodium 137, Potassium 4.8, Chloride 99, Carbon Dioxide 19.6 L, Anion Gap 19 H, BUN 78 H, Creatinine 6.24 H, Estim Creat Clear Calc 8.26 L*, Est GFR (MDRD) Non-Af 7 L, BUN/Creatinine Ratio 12.5, Glucose 193 H, Calcium 8.0, Total Bilirubin 0.65, Direct Bilirubin 0.47 H, AST 42 H, ALT 52 H, Alkaline Phosphatase 149 H, Total Protein 5.3 L, Albumin 2.6 L, Globulin 2.6, Albumin/Globulin Ratio 1.0 06/27/25 05:33: POC Glucose 181 H Micro: Microbiology 06/25/25 01:43 Blood Culture (Wb) - Arm Left Bacteria Detection (PCR) - Final Meth. resistant Staph. aureus mecA Resistance Marker 06/25/25 01:43 Blood Culture (Wb) - Arm Left Blood Culture - Preliminary Staphylococcus aureus 06/25/25 01:43 Blood Culture (Wb) - Anticubital Right Blood Culture - Preliminary Staphylococcus aureus 06/25/25 07:00 Sputum, Induced/Lukens Gram Stain - Final 06/25/25 01:41 Mucosa - Nose SARS-CoV-2, Influenza & RSV (PCR) - Final Radiography Diagnostic Testing: Radiology Impression Chest X-Ray 06/27/25 03:21 IMPRESSION: Persistent right effusion with adjacent airspace disease. Reading Location: [place] [address] Rhythm Strip Rhythm Strip: Sinus Rhythm Rate: 45 Physical Exam Narrative Seen and examined Patient is still on ventilator and vasopressor. No fever. On 40% FiO2 ventilator. Sinus bradycardia, heart rate in low 40s on surveillance monitor. Did not had BM for 3 days or since admission Physical exam General: Lightly sedated, responsive and tries to open eyes. HEENT: Atraumatic, PERRLA, EOMI, Normocephalic. Oral: ETT and OG tube Neck: Supple, No JVD, Negative Carotid Bruits Chest wall/Lungs: Right subclavicular dialysis catheter removed. Dressing dry. Air entry diminished in bilateral lung bases. On vent Cardiovascular: Soft heart sound, sinus bradycardia, no M/G/R Abdomen: Bowel Sounds sluggish to absent right femoral TLC, Soft, Non Tender, Non-Distended : Dialysis dependent, Underwood catheter empty. No renal angle tenderness. No suprapubic tenderness. Extremities: Mild to minimal subcutaneous leg edema, Capillary Refill Less than 3 Seconds Skin: Old scar on bilateral lower legs, Delvin wrap bandage Musculoskeletal: No Tenderness to Palpation of Joints or Extremities Neurological: Nonfocal exam, sedated Psych/Mental Status: Flat affect Assessment & Plan Assessment/Plan (1) Fall: (2) PAF (paroxysmal atrial fibrillation): PLAN: Plan The patient is a 75 y/o F who was admitted through ED after EMS found unconscious in the bathroom fell off toilet and then shock state in the ED. She was unconscious for about 3 minutes. #1. Undifferentiated shock possible cardiogenic /or mixed septic shock: Patient was started on Levophed since beginning in ICU after she was transferred to PCU shortly after admission. She had right femoral TLC. She has endorgan dysfunction including lactic acidosis, hypotension not responsive to fluid and acute hypoxic respiratory failure. Preliminary blood culture shows Staph aureus, mec resistance markers detected therefore the MRSA. Continue broad- spectrum antibiotic. Consult ID. Continue broad-spectrum IV antibiotic, vancomycin and Zosyn. Patient on Levophed and vasopressin. CT abdomen shows potential third spacing 06/27: Discussed with the nursing staff. Patient on 5 mcg of Levophed. Blood culture from 06/26 showing gram-positive cocci in clusters. Tunneled dialysis catheter was removed yesterday and culture was sent. Gram stain of sputum culture from 06/25 shows no organism. Continue eval antibiotic. Decision of reinsertion of dialysis catheter depends on sterilized blood and urgency of hemodialysis therefore based on the decision of ID and payroll clerk. Blood culture from 06/27 ordered. Dialysis catheter when repeat blood culture is clear organism. 2. Acute on chronic HFrEF with possible cardiogenic shock with moderate to severe pulmonary hypertension and valvular heart disease, moderately severe TR: Troponins are elevated 97, 94 and 94. 2D echo shows EF 20%, moderate concentric LVH, global hypokinesis, RV moderately dilated. Severe global RV systolic dysfunction. Normal mitral valve but 3+ TR. PASP 64 mm to moderate pulmonary hypertension normal tricuspid valve. IVC dilated. No pericardial effusion. No vegetation noticed. Panel Edge Sealer consulted. Previous echo shows EF 30% on November 2024 but RV was normal. PASP was reported 65 with 2+ TR and 2+ MR 06/27: Paroxysmal A-fib with current sinus bradycardia. Patient had episodes of atrial fibrillation at the time of admission. 3. Acute hypoxic respiratory failure: Currently patient on 40% FiO2. Repeat ABG shows 7.4 on 100% FiO2, 450, 18 and PEEP 5. Previous was VBG 7.18. There was discrepancy noted on the bicarb, bicarb reported 27 on VBG and BMP shows 18 similarly ABG showed bicarb 23 #4. Diabetes mellitus type II: Accu-Chek before meals and at bedtime with Humalog sliding scale coverage and hypoglycemia protocol. #5. Acute encephalopathy due to shock probably related to metabolic and toxic in etiology: Initial CT head was unremarkable. TSH within normal limit. 6. ESRD on hemodialysis: Patient was evaluated by payroll clerk. Patient making urine. Has Underwood catheter. 7. Hypotension with history of hypertension: On vasopressors 8. Hyperlipidemia: continue patient on statin therapy. 9. Chronic normocytic anemia/AOCD: Admission hemoglobin 12.2, MCV 92.4, baseline hemoglobin primarily 10-11 range, no significant 10. Hypothyroidism: continue patient home levothyroxine regimen 11. Morbid Obesity: Weight loss and lifestyle changes for further care if she is out of ICU Constipation: Senna S2 tablet twice daily and MiraLAX ordered. Dulcolax suppository. Tube feed is off in anticipation of reinsertion dialysis catheter DVT prophylaxis: On Eliquis CODE status: Patient STEFANIE is her primary and son secondary and living will is currently in place. Discussed CODE status at length including difference between FULL code, DNR-CCA and DNR-CC status. Following discussions about the differences in these status, requested Full Code status. Charges/Coding Visit Charges Inpatient E&M: 01721 Subs Hosp L3
--- NOTE | 2025-06-27 08:02 | PN.CARD_ITS ---
Subjective Subjective Efforts continue to try and wean the pressors. The patient remains intubated and sedated. She is arousable to verbal commands. Her tunneled catheter was removed yesterday due to her sepsis and MRSA bacteremia. Objective Data Vital Signs: Vital Signs Temp Pulse Resp BP Pulse Ox O2 Del Method O2 Flow Rate 98 F 46 L 18 88/66 L 94 Mechanical Ventilator 50 06/27/25 04:00 06/27/25 07:03 06/27/25 07:03 06/27/25 07:00 06/27/25 07:03 06/27/25 07:00 06/26/25 01:00 FiO2 30 06/27/25 07:03 Oxygen Flow Rate (L/min) 50 Oxygen Delivery Method Mechanical Ventilator Weight: 219 lb 9.286 oz Body Mass Index (BMI) 42.8 Intake & Output: Intake and Output for Last 24 Hours 06/25/25 06/26/25 06/27/25 23:59 23:59 23:59 Intake Total 3033.92 / 3082.97 1315.60 / 1363.75 320.94 / 320.94 Output Total 0 / 45 120 / 120 110 / 110 Balance 3033.92 / 3037.97 1195.60 / 1243.75 210.94 / 210.94 Lab / Micro Data Attestation: I reviewed the patient's lab results. 06/27/25 05:20 06/27/25 05:20 Labs: Laboratory Results - last 24 hr 06/26/25 11:57: POC Glucose 206 H 06/26/25 18:26: POC Glucose 187 H 06/26/25 23:28: POC Glucose 213 H 06/27/25 05:20: WBC 23.2 H, RBC 4.10 L, Hgb 12.0, Hct 35.4 L, MCV 86.3, MCH 29.3, MCHC 33.9, RDW Std Deviation 51.4 H, RDW Coeff of Leif 16.6 H, Plt Count 175, MPV 10.1, Immature Gran % (Auto) 1.900 H, Neut % (Auto) 89.6 H, Lymph % (Auto) 4.1 L, [place] % (Auto) 4.0, Eos % (Auto) 0.1, Baso % (Auto) 0.3, Absolute Neuts (auto) 20.8 H, Absolute Lymphs (auto) 0.94, Nucleated RBC % 0.2, Differential Comment SCANNED, Platelet Estimate ADEQUATE, Polychromasia 1+, Anisocytosis 1+, Target Cells RARE, Ovalocytes 1+, Crenated Cell 2+, Acanthocytes (Spur) RARE, Sodium 137, Potassium 4.8, Chloride 99, Carbon Dioxide 19.6 L, Anion Gap 19 H, BUN 78 H, Creatinine 6.24 H, Estim Creat Clear Calc 8.26 L*, Est GFR (MDRD) Non-Af 7 L, BUN/Creatinine Ratio 12.5, Glucose 193 H, Calcium 8.0, Total Bilirubin 0.65, Direct Bilirubin 0.47 H, AST 42 H, ALT 52 H, Alkaline Phosphatase 149 H, Total Protein 5.3 L, Albumin 2.6 L, Globulin 2.6, Albumin/Globulin Ratio 1.0 06/27/25 05:33: POC Glucose 181 H Micro: Microbiology 06/25/25 01:43 Blood Culture (Wb) - Arm Left Bacteria Detection (PCR) - Final Meth. resistant Staph. aureus mecA Resistance Marker 06/25/25 01:43 Blood Culture (Wb) - Arm Left Blood Culture - Preliminary Staphylococcus aureus 06/25/25 01:43 Blood Culture (Wb) - Anticubital Right Blood Culture - Preliminary Staphylococcus aureus Rhythm Strip Rhythm Strip: Sinus Rhythm Rate: 45 Cardiology Labs/Tests 06/27/25 05:20: WBC 23.2 H, RBC 4.10 L, Hgb 12.0, Hct 35.4 L, MCV 86.3, MCH 29.3, MCHC 33.9, Plt Count 175, MPV 10.1, Immature Gran % (Auto) 1.900 H, Neut % (Auto) 89.6 H, Lymph % (Auto) 4.1 L, [place] % (Auto) 4.0, Eos % (Auto) 0.1, Baso % (Auto) 0.3, Absolute Neuts (auto) 20.8 H, Nucleated RBC % 0.2, Sodium 137, Potassium 4.8, Chloride 99, Carbon Dioxide 19.6 L, Anion Gap 19 H, BUN 78 H, C reatinine 6.24 H, Est GFR (MDRD) Non-Af 7 L, BUN/Creatinine Ratio 12.5, Glucose 193 H, Calcium 8.0, Total Bilirubin 0.65, Direct Bilirubin 0.47 H Rhythm: EKG: ECHO: Stress Test: Cardiac Cath: PCI: CT Surgery: Holter monitor: EPS: PPM: CXR: Chest CT Scan: Radiography Diagnostic Testing: Radiology Impression Chest X-Ray 06/27/25 03:21 IMPRESSION: Persistent right effusion with adjacent airspace disease. Reading Location: [place] [address] Physical Exam Const Constitutional Narrative: Intubated and sedated. Responds to verbal stimuli HEENT normocephalic Eyes EOMs intact bilaterally Chest inspection of chest normal Resp Resp Narrative: Intubated with diffuse rhonchi and respiratory noise. Cardio Cardio Narrative: Distant heart tones difficult to auscultate due to respiratory noise. Rate: bradycardia Rhythm: regular rhythm Heart Sounds: S1 normal and S2 normal; Negative for click, gallop or murmur GI GI Narrative: Obese Extremity Extremity Narrative: Both lower extremities wrapped. Neuro Neuro Narrative: Sedated but responds to verbal stimuli Assessment & Plan Assessment/Plan (1) PAF (paroxysmal atrial fibrillation): PLAN: Patient remains in sinus bradycardia at this time heart rates in the 45 bpm range. The patient has episodes of atrial fibrillation documented as recently as on admission to this hospital course. The patient is not on oral anticoagulation therapy. He would need to be considered to reinstitute oral anticoagulation therapy should she have recurrence of the atrial fibrillation. I cannot find documentation of why she is not on oral anticoagulation therapy. (2) Congestive heart failure: QUALIFIERS: Heart failure type: systolic Heart failure chronicity: acute on chronic Qualified Code(s): I50.23 - Acute on chronic systolic (congestive) heart failure PLAN: Patient has had her medications held and by the dialysis team at her outpatient dialysis for the Isorbid dinitrate and hydralazine. This was presumed related to hypotension around the time of dialysis. The patient when hemodynamics will permit should be on low-dose carvedilol 3.125 mg twice daily and a combination of hydralazine and Isorbid dinitrate for afterload reduction therapy. Her volume status has been managed by her dialysis. (3) Acute kidney failure: QUALIFIERS: Acute renal failure type: unspecified Qualified Code(s): N17.9 - Acute kidney failure, unspecified PLAN: The patient has been on dialysis 3 days a week but there had been some improvement in her renal function and the hope was that she would come off dialysis at some point in time. However now her renal function has deteriorated given her sepsis. Her tunneled catheter has been removed related to the MRSA sepsis. Further treatment is being arranged by the nephrology team. (4) Septic shock: PLAN: Patient's septic shock appears to be related to MRSA bacteremia. This is being treated by the primary service. Once her sepsis is cleared and hemodynamics will allow she should slowly be reinstituted on her guideline directed medical therapy for heart failure. PLAN: Plan 1. Continue with current supportive care and treatment per the primary service. 2. Cardiology will follow-up as needed please reconsult if assistance is needed. 3. As vital signs will allow Coreg and then a combination of hydralazine and nitrates should be reinstituted at low-dose as tolerated. Charges/Coding Visit Charges Inpatient E&M: 90311 Subs Hosp L2
--- NOTE | 2025-06-27 08:20 | PCM.PN.TICU ---
Objective Data Objective Data Vital Signs: Vital Signs Last response Temperature 36.6 C 06/27/25 04:00 Temperature Source Axillary 06/27/25 04:00 Pulse Rate 46 L 06/27/25 07:03 Respiratory Rate 18 06/27/25 07:03 Respiratory Effort Mechanically Ventilated 06/27/25 04:00 Respiratory Depth Normal 06/26/25 04:00 Respiratory Pattern Normal 06/27/25 07:03 Blood Pressure 88/66 L 06/27/25 07:00 Blood Pressure Mean 73 06/27/25 07:00 Blood Pressure Source Monitor 06/27/25 07:00 Blood Pressure Position Semi-Fowlers 06/25/25 07:45 Blood Pressure Location Left Forearm 06/25/25 07:45 Pulse Ox 94 06/27/25 07:03 Oxygen Delivery Method Mechanical Ventilator 06/27/25 07:00 Oxygen Flow Rate (L/min) 50 06/26/25 01:00 Fraction of Inspired Oxygen (FIO2) 30 06/27/25 07:03 I&O: I&O Last 24 Hours 06/26/25 06/26/25 06/27/25 11:59 23:59 11:59 Intake Total 612.54 / 1363.75 703.06 / 1363.75 320.94 / 320.94 Output Total 95 / 120 25 / 120 110 / 110 Balance 517.54 / 1243.75 678.06 / 1243.75 210.94 / 210.94 I&O: Total Stay 06/24/25 23:41 thru 06/27/25 07:00 Intake Total 4670.46 Output Total 230 Balance 4440.46 Current Meds Ordered / Administered: Current meds ordered / Administered Generic Name Dose Route Start Last Admin Trade Name Freq PRN Reason Stop Dose Admin Acetaminophen 650 mg 06/25/25 03:56 Acetaminophen 325 Mg Tablet PO Q4H PRN PRN Fever, pain 1-10/10 Acetaminophen 650 mg 06/25/25 22:48 06/25/25 23:59 Acetaminophen 650 Mg/20 Ml Udc GT 650 mg Q6H PRN PRN Administration Pain 1-10 or Fever Al Hydroxide/Mg Hydroxide 30 ml 06/25/25 03:56 Mag Hydrox/Al Hydrox/Simeth 30 Ml Udc PO Q6H PRN PRN Gastric Burning Albuterol Sulfate 2.5 mg 06/25/25 03:56 Albuterol 2.5 Mg/3 Ml Vial.Neb. INHALATION Q2H PRN PRN Dyspnea, wheezing Apixaban 5 mg 06/25/25 10:00 06/26/25 21:41 Apixaban 5 Mg Tablet PO 5 mg BID YOLI Administration Atorvastatin Calcium 10 mg 06/25/25 22:00 06/26/25 21:41 Atorvastatin Calcium 10 Mg Tablet PO 10 mg QHS YOLI Administration Chlorhexidine Gluconate 15 ml 06/25/25 10:00 06/26/25 21:42 Chlorhexidine 15 Ml PO 15 ml BID YOLI Administration Glucagon 1 mg 06/25/25 03:56 Glucagon 1 Mg/Ml Syringe IM X1 PRN HYPOGLYCEMIA Protocol Guaifenesin 20 ml 06/25/25 03:56 Guaifenesin 10 Ml Udc (200mg/10ml) PO Q4H PRN PRN COUGH Hydralazine HCl 10 mg 06/25/25 03:56 Hydralazine 20 Mg/Ml Vial IV Q4H PRN PRN SBP > 160 Protocol Hydrocortisone Sodium Succinate 50 mg 06/25/25 12:00 06/27/25 05:34 Hydrocortisone Sod Succinate 100 Mg/2 Ml Vial IV 50 mg Q6 YOLI Administration Dextrose 250 mls @ 0 mls/hr 06/25/25 03:56 Dextrose 10%-Water IV .Q0M PRN HYPOGLYCEMIA Protocol As Directed Norepinephrine Bitartrate 8 mg 250 mls @ 9.375 mls/hr 06/25/25 06:21 06/27/25 07:00 / Sodium Chloride CONT INF 5 mcg/min .[id number] YOLI 9.4 mls/hr Titration Protocol 5 MCG/MIN Vancomycin IV-PHARMACY TO DOSE 500 mls @ 250 mls/hr 06/25/25 06:21 1 each/ Sodium Chloride IV PRN PRN Rx to Dose Protocol Piperacillin Sod/Tazobactam 50 mls @ 12.5 mls/hr 06/25/25 06:30 06/27/25 01:45 Sod 3.375 gm/ Sodium Chloride IV Infused Q12 YOLI Infusion Propofol 1,000 mg in 100 mls @ 5.682 mls/hr 06/25/25 06:40 06/26/25 18:48 Diprivan CONT INF Not Given .Q12H YOLI Protocol 10 MCG/KG/MIN Fentanyl 100 mls @ 5 mls/hr 06/25/25 06:40 06/27/25 07:00 CONT INF 200 mcg/hr UD YOLI 20 mls/hr Administration Protocol 50 MCG/HR Pantoprazole Sodium 40 mg/ 100 mls @ 330 mls/hr 06/25/25 10:00 06/26/25 22:00 Sodium Chloride IV Infused Q12 YOLI Infusion Vasopressin 20 units/ Sodium 25 mls @ 3 mls/hr 06/25/25 08:55 06/27/25 02:03 Chloride CONT INF Not Given .[id number] YOLI 0.04 UNITS/MIN Sodium Chloride 250 mls @ 15 mls/hr 06/26/25 03:05 06/26/25 22:05 IV 15 mls/hr .[id number] PRN Administration Saline Flush Sodium Chloride 250 mls @ 15 mls/hr 06/26/25 03:05 IV .[id number] PRN Additional IVPB Infusion Enteral Nutritional Formula 1,000 mls @ 35 mls/hr 06/26/25 10:45 06/26/25 11:05 Nepro Carb Steady GT Not Given .[id number] [facility] Insulin Human Lispro 0 unit 06/25/25 12:00 06/27/25 05:34 Insulin Lispro 100 Unit/Ml Insuln.Pen SC 1 u Q6 [facility] Administration Protocol Levothyroxine Sodium 112 mcg 06/25/25 06:00 06/27/25 05:34 Levothyroxine 112 Mcg Tablet PO 112 mcg DAILY@0600 [facility] Administration Melatonin 3 mg 06/25/25 03:56 Melatonin 3 Mg Tablet PO QHS PRN PRN INSOMNIA Nystatin 1 applic 06/25/25 03:56 06/27/25 05:34 Nystatin Powder 15gm Bottle TOPICAL 1 applic TID [facility] Administration Protocol Ondansetron HCl 4 mg 06/25/25 03:56 Ondansetron 4 Mg/2 Ml Vial IV Q8H PRN PRN NAUSEA/VOMITING Senna/Docusate Sodium 2 tablet 06/25/25 03:56 Senna/Docusate Sodium 1 Tablet PO BID PRN PRN Constipation Senna/Docusate Sodium 2 tablet 06/27/25 10:00 Senna/Docusate Sodium 1 Tablet PO BID [facility] Sodium Chloride 10 - 40 ml 06/25/25 04:07 06/26/25 22:05 0.9% Saline Lock 10 Ml Syringe IV 10 ml UD PRN Administration SALINE FLUSH Sodium Chloride 5 ml 06/25/25 06:37 Sodium Cl For Inhalation 15 Ml Vial.Neb. INHALATION Q5M PRN Suctioning Sodium Chloride 10 - 40 ml 06/26/25 03:05 0.9% Saline Lock 10 Ml Syringe IV UD PRN SALINE FLUSH Lab / Micro Data 06/27/25 05:20 06/27/25 05:20 Labs: Laboratory Results - last 24 hr 06/26/25 11:57: POC Glucose 206 H 06/26/25 18:26: POC Glucose 187 H 06/26/25 23:28: POC Glucose 213 H 06/27/25 05:20: WBC 23.2 H, RBC 4.10 L, Hgb 12.0, Hct 35.4 L, MCV 86.3, MCH 29.3, MCHC 33.9, RDW Std Deviation 51.4 H, RDW Coeff of Leif 16.6 H, Plt Count 175, MPV 10.1, Immature Gran % (Auto) 1.900 H, Neut % (Auto) 89.6 H, Lymph % (Auto) 4.1 L, [place] % (Auto) 4.0, Eos % (Auto) 0.1, Baso % (Auto) 0.3, Absolute Neuts (auto) 20.8 H, Absolute Lymphs (auto) 0.94, Nucleated RBC % 0.2, Differential Comment SCANNED, Platelet Estimate ADEQUATE, Polychromasia 1+, Anisocytosis 1+, Target Cells RARE, Ovalocytes 1+, Crenated Cell 2+, Acanthocytes (Spur) RARE, Sodium 137, Potassium 4.8, Chloride 99, Carbon Dioxide 19.6 L, Anion Gap 19 H, BUN 78 H, Creatinine 6.24 H, Estim Creat Clear Calc 8.26 L*, Est GFR (MDRD) Non-Af 7 L, BUN/Creatinine Ratio 12.5, Glucose 193 H, Calcium 8.0, Total Bilirubin 0.65, Direct Bilirubin 0.47 H, AST 42 H, ALT 52 H, Alkaline Phosphatase 149 H, Total Protein 5.3 L, Albumin 2.6 L, Globulin 2.6, Albumin/Globulin Ratio 1.0 06/27/25 05:33: POC Glucose 181 H Micro: Microbiology 06/25/25 01:43 Blood Culture (Wb) - Anticubital Right Blood Culture - Preliminary Staphylococcus aureus 06/25/25 01:43 Blood Culture (Wb) - Arm Left Bacteria Detection (PCR) - Final Meth. resistant Staph. aureus mecA Resistance Marker 06/25/25 01:43 Blood Culture (Wb) - Arm Left Blood Culture - Preliminary Staphylococcus aureus Rhythm Strip Rhythm Strip: Sinus Rhythm Rate: 45 Imaging Radiology Impression Chest X-Ray 06/27/25 03:21 IMPRESSION: Persistent right effusion with adjacent airspace disease. Reading Location: [place] [address] Assessment and Plan . Assessment and plan: Subjective: No acute events o/n. Physical Exam: Gen - NAD, obese, intubated HEENT - MMM. ETT in place Resp - +scattered rhonchi. Breathing nonlabored CV - RRR. No m/g/r Abd - Soft, NT, ND Ext - No c/c. +anasarca Skin - No rashes? Neuro - Intermittent agitation on sedation, can sometimes follow commands. Moving extremities I have reviewed the pertinent vital sign, laboratory, and imaging data. ASSESSMENT: # Acute hypoxemic respiratory failure: # Acute HFrEF (heart failure with reduced ejection fraction): LVEF 20%, moderate RV dilation # Aortic valve stenosis # Septic shock due to MRSA bacteremia - suspected source from dialysis catheter # Paroxysmal Afib # Bradycardia # Acute encephalopathy # Diabetes # ESRD on HD # Transaminitis # Obesity PLAN: -Cont VC vent 450/18/5/30%. Follow blood gas, CXR -Wean levophed to keep MAP > 65, down to 5 mcg/min now. Off vaso. Cont stress dose hydrocortisone -Wean sedation as tolerated. Avoid precedex d/t bradycardia -Possible SBT pending procedures as below -Cont vanc/zosyn per ID recs. Repeat BCx 06/26 with prelim GPCs. May need DESTIN, further MSK imaging pending additional ID recs -Tunneled dialysis catheter removed 06/26. Will need temporary line placed soon but ideally needs line holiday/clearance of bacteremia. Await further ID recs regarding this -Agree with R diagnostic/therapeutic thoracentesis as per ID recs, will likely also facilitate ventilator weaning -Monitor for worsening volume overload, need for urgent HD -Cardiology following FEN/GI: Start TF today if no procedures planned Proph DVT/GI: Hold eliquis for possible thoracentesis, protonix Updated son at bedside Critical Care Time: 50 mins The entirety of this encounter was done via telemedicine using both audio and video. Consent was unable to be obtained for the telemedicine encounter due to the patient's mental status.
[2025-06-27] MEDS: Propofol 10MG/Ml 1,000 MG/100 ML Bottle 5.7 MG CONT INF (09:25)
[2025-06-27] MEDS: Senna/Docusate Sodium 1 Tablet 2 TABLET GT ×2 (09:31→21:26)
[2025-06-27] MEDS: Polyethylene Glycol 3350 17 GM PACKET PO (09:32)
[2025-06-27] MEDS: Pantoprazole Sodium 40 MG in 0.9% Normal Saline (100mL MB+) 100 ML 330 MG IV ×2 (09:32→21:26)
[2025-06-27] MEDS: 0.9% Saline Lock 10 ML Syringe IV ×3 (09:33→21:26)
[2025-06-27] MEDS: Chlorhexidine 15 ML PO ×3 (09:37→23:04)
[2025-06-27] MEDS: Piperacil/Tazobactam 3.375 GM in 0.9% Normal Saline (50mL MB+) 50 ML IV (10:37)
[2025-06-27 11:09] LABS: Base Excess -4 mmol/L (-2 to +2)
--- NOTE | 2025-06-27 11:23 | PCM.PN.REN ---
Subjective Subjective On ventilator. No overnight events. Objective Data Objective Data Vital Signs: Vital Signs Temp Pulse Resp BP Pulse Ox O2 Del Method O2 Flow Rate 98 F 41 L 18 103/50 L 94 Mechanical Ventilator 50 06/27/25 04:00 06/27/25 10:04 06/27/25 10:04 06/27/25 09:00 06/27/25 10:04 06/27/25 08:00 06/26/25 01:00 FiO2 30 06/27/25 10:04 Oxygen Flow Rate (L/min) 50 Oxygen Delivery Method Mechanical Ventilator Weight: 99.6 kg Body Mass Index (BMI) 42.8 Intake & Output: Intake and Output for Last 24 Hours 06/25/25 06/26/25 06/27/25 23:59 23:59 23:59 Intake Total 3033.92 / 3082.97 1315.60 / 1363.75 448.36 / 448.36 Output Total 0 / 45 120 / 120 110 / 110 Balance 3033.92 / 3037.97 1195.60 / 1243.75 338.36 / 338.36 Lab / Micro Data 06/27/25 05:20 06/27/25 05:20 Labs: Laboratory Results - last 24 hr 06/26/25 11:57: POC Glucose 206 H 06/26/25 18:26: POC Glucose 187 H 06/26/25 23:28: POC Glucose 213 H 06/27/25 05:20: WBC 23.2 H, RBC 4.10 L, Hgb 12.0, Hct 35.4 L, MCV 86.3, MCH 29.3, MCHC 33.9, RDW Std Deviation 51.4 H, RDW Coeff of Leif 16.6 H, Plt Count 175, MPV 10.1, Immature Gran % (Auto) 1.900 H, Neut % (Auto) 89.6 H, Lymph % (Auto) 4.1 L, [place] % (Auto) 4.0, Eos % (Auto) 0.1, Baso % (Auto) 0.3, Absolute Neuts (auto) 20.8 H, Absolute Lymphs (auto) 0.94, Nucleated RBC % 0.2, Differential Comment SCANNED, Platelet Estimate ADEQUATE, Polychromasia 1+, Anisocytosis 1+, Target Cells RARE, Ovalocytes 1+, Crenated Cell 2+, Acanthocytes (Spur) RARE, Sodium 137, Potassium 4.8, Chloride 99, Carbon Dioxide 19.6 L, Anion Gap 19 H, BUN 78 H, Creatinine 6.24 H, Estim Creat Clear Calc 8.26 L*, Est GFR (MDRD) Non-Af 7 L, BUN/Creatinine Ratio 12.5, Glucose 193 H, Calcium 8.0, Total Bilirubin 0.65, Direct Bilirubin 0.47 H, AST 42 H, ALT 52 H, Alkaline Phosphatase 149 H, Total Protein 5.3 L, Albumin 2.6 L, Globulin 2.6, Albumin/Globulin Ratio 1.0 06/27/25 05:33: POC Glucose 181 H 06/27/25 09:30: Lactic Acid 1.8 Micro: Microbiology 06/26/25 Unknown Wound - Other Gram Stain - Final 06/25/25 07:00 Sputum, Induced/Lukens Gram Stain - Final 06/25/25 07:00 Sputum, Induced/Lukens Respiratory Culture - Final Culture exhibits no growth. 06/25/25 01:43 Blood Culture (Wb) - Anticubital Right Blood Culture - Final Meth. resistant Staph. aureus 06/25/25 01:43 Blood Culture (Wb) - Arm Left Bacteria Detection (PCR) - Final Meth. resistant Staph. aureus mecA Resistance Marker 06/25/25 01:43 Blood Culture (Wb) - Arm Left Blood Culture - Preliminary Staphylococcus aureus 06/26/25 10:20 Blood Culture (Wb) - Anticubital Right Blood Culture - Preliminary 06/25/25 01:41 Mucosa - Nose SARS-CoV-2, Influenza & RSV (PCR) - Final ABG Data ABG results: ABG 06/27/25 10:07 Specimen Type ART pH 7.49 H Bicarbonate Actual 18.8 L Total CO2 20 Base Excess -4 L ABG pCO2 24.5 L Radiography Diagnostic Testing: Radiology Impression Chest X-Ray 06/27/25 03:21 IMPRESSION: Persistent right effusion with adjacent airspace disease. Reading Location: [place] [address] Rhythm Strip Rhythm Strip: Sinus Rhythm Rate: 45 Physical Exam Narrative On ventilator support no obvious distress s1s2 no murmurs; bradycardic lungs clear anteriorly abdomen soft no organomegaly no pitting edema; legs wrapped no cyanosis Indwelling [place] with scant yellow urine in tubing Assessment & Plan Assessment/Plan (1) Acute on chronic renal failure: QUALIFIERS: Acute renal failure type: unspecified Chronic kidney disease stage: stage 3 (moderate) Chronic kidney disease stage 3 subtype: stage 3a (GFR 45-59) Qualified Code(s): N17.9 - Acute kidney failure, unspecified; N18.31 - Chronic kidney disease, stage 3a PLAN: Acute renal failure from biopsy proven ATN, dialysis dependent since March 2025 on Wednesday, , Wednesday schedule, no noted renal recovery at this time and patient remains hemodialysis dependent. Last hemodialysis June 23. +MRSA bacteremia, tunneled HD catheter removed 06/26, ID consulted for antibiotic management, currently on vancomycin and Zosyn. Tunneled HD catheter tip cx pending. Blood cx from 06/26 pending. Some improvement in blood pressure patient is on Levophed around 5mcg/min, off Vaso. Patient is bradycardic, cardiology following. FiO2 around 30-40. Serum creatinine slowly trending up, today her creatinine is 6.24, potassium normal, bicarb 19. Urine output yesterday around 120 mL. Per cumulative I&O patient is around 4.5L net positive. I spoke with Dr. Bonds today, per our discussion ok for temporary hemodialysis line to be placed for hemodialysis. Discussed case with surgery team who recommend to defer placing temporary hemodialysis catheter at this time with bacteremia. Labs ordered for morning. Discussed nephrology plan with hospitalist. Assessment and plan reviewed with Dr. Gupta.
[2025-06-27] MEDS: CHLORHEXIDINE GLUC 2% CLOTH 1 EACH TOWELETTE TOPICAL (11:28)
[2025-06-27 13:06] LABS: SITE L RADIAL
[2025-06-27 13:07] LABS: Allen Test POS
[2025-06-27 13:08] LABS: FI02 30.0; PEEP 5; RR 18
--- NOTE | 2025-06-27 13:40 | PCM.PN.ID ---
Physical Exam Narrative On vent, no fever overnight. HD line removed yesterday. Const no apparent distress Resp Effort and Inspection: mechanically ventilated Cardio Rate: bradycardia GI soft to palpation, non-tender and non-distended Extremity General Extremity: edema Skin no rashes or lesions noted ID ID: Route of nutrition/ use of supplements: [] Nutritional Intake: [] IV Site: [] [place] Catheter: [] Assessment & Plan Assessment/Plan (1) Septic shock: (2) MRSA bacteremia: PLAN: Suspect HD line as source, removed 06/26/25. Will repeat bcx today. Splinter hemorrhage seen on L 1st toe. Recommend thoracentesis of R side if possible with fluid studies and cx. TTE showed no vegetation. Cont vanc, will stop zosyn. Will order DESTIN. Ok for temp HD line placement, but the longer she can be line-free, the better. Will follow, d/w Dr. Zelaya and nursing
[2025-06-27] MEDS: Midazolam 2 MG/2 ML Syringe IV ×3 (14:16→21:25)
[2025-06-27] MEDS: NEPRO 1,000 ML 20 ML GT (15:26)
[2025-06-27] MEDS: WATER IV (17:46)
[2025-06-27] MEDS: ISOPROTERENOL HCL IV (17:46)
[2025-06-27] MEDS: DEXTROSE 5% IV (17:46)
[2025-06-28] VITALS (25 sets, daily range): BP systolic 122–143; BP diastolic 44–99; PULSE 45–64; RESP 12–19; TEMP 36–36.7; O2SAT 92–96; BMI 43.4
--- NOTE | 2025-06-28 | FLU_PTH ---
PATIENT: MISAEL MEDINA LOC: ICU U#:[id number] AGE/SX: 75/F ROOM: ICU03 RE06/25/[address]: Dr. Saeed Zelaya MD : 1950 BED: 1 DIS: 06/28/2025 SPEC #: [id number] RECD: 06/28/25 14:27 STATUS: BHUPENDRA REQ #: [id number] EZIO: 06/28/25 00:[address]: Saeed Zelaya DEPT: CYTOLOGY RECD BY: Aashish Santillan ENTERED: 06/29/25 09:06 SP TYPE: Fluid OTHR DR: MD Dr. Stephen Naylor MD Dr. Autumn L White, MD Dr. Bruce Arthur, MD Chalon Fike, MD Dr. Derek Brown, DO Dr. David P Myers, MD Dr. Edward Matheis, MD Dr. Gautam Baskaran, MD Dr. Yordanos Habtegebriel, MD Dr. Hemant Dand, MD Dr. Jayaprakas Dasari, MD Dr. Jose Ochoa, MD Dr. Justin Wong, MD Dr. Kimber Foust, MD Dr. Lamia Aljundi, MD Dr. Michael Hughes, MD Dr. Marisa Magana, MD Dr. Pritam Ghosh, MD Dr. Pavan Irukulla, MD Dr. Robert Leininger, MD Dr. Saad Farooqi, MD Dr. Sukhdeep Dhesi, DO Dr. Sujoy Gill, MD Dr. Soleyah Groves, MD Dr. Steven A Wanek, MD Dr. Timothy Fernstrom, DO Dr. Vikram Anand, MD Dr. William Haden, MD Tissues: A - Pleural fluid, NOS Procedures: Special Stain Group II Surgery Specimen Level IV Cytospin Fluid HEADER OPERATION: Ultrasound guided thoracentesis PRE-OP DIAGNOSIS: Pleural effusion TISSUE SUBMITTED: A- Thoracentesis fluid for cytology DIAGNOSIS CYTOLOGY A. Pleural effusion, thoracentesis (cytospin, cellblock): - No malignant cells identified. - Reactive mesothelial cells and acute inflammation. CYTOLOGY STUDY Slides are reviewed. CYTOLOGY GROSS A. Received is 80 ml of yellow-cloudy fluid labeled with the patient's name and and designated per the requisition as Thoracentesis fluid. Submitted for cytology and cell block preparation. 06/29/2025 CPT: 19663,56678
[2025-06-28] MEDS: DEXTROSE 5% IV ×4 (01:11→16:50)
[2025-06-28] MEDS: WATER IV ×4 (01:11→16:50)
[2025-06-28] MEDS: ISOPROTERENOL HCL IV ×4 (01:11→16:50)
[2025-06-28] MEDS: 0.9% Saline Lock 10 ML Syringe IV ×5 (01:30→10:59)
[2025-06-28] MEDS: fentaNYL drip 100 ML 20 MCG CONT INF ×4 (02:00→15:43)
[2025-06-28] MEDS: Midazolam 2 MG/2 ML Syringe IV ×5 (03:10→16:17)
[2025-06-28 03:55] LABS: Hematocrit 31.8 % (37-47); Hemoglobin 10.5 g/dL (12.0-15.0); Immature Granulocytes Count 0.280 X10^3/uL (0.0-0.0); Mean Corp Hgb Conc 33.0 g/dL (32-36); Mean Corpuscular Volume 86.4 fL (81-99); Mean Platelet Vol. 10.6 fl (6.2-12.0); NRBC Flagged by Analyzer 0.3 % (0-5); Platelet Count 141 K/mm3 (150-450); RBC Distribution Width CV 16.8 % (11.6-14.6); RBC Distribution Width SD 52.5 fl (35.1-43.9); Red Blood Count 3.68 M/mm3 (4.2-5.4); White Blood Count 15.6 K/mm3 (4.4-11.0)
--- NOTE | 2025-06-28 04:10 | RAD_ITS ---
PROCEDURE: CHEST 1 VIEW (PORTABLE) 06/28/2025 REASON FOR EXAM: RESPIRATORY FAILURE TECHNIQUE: Frontal view of the chest. COMPARISON: 06/27/2025 FINDINGS: ETT tip between the inlet and the jimi. Enteric tube tip in stomach lumen. Mildly enlarged heart. Lordotic positioning. Elevated right hemidiaphragm. Retrocardiac opacity, atelectasis/consolidation. Moderately large right effusion, adjacent airspace disease. No pneumothorax. RAD/Chest 1 View (Portable) IMPRESSION: Small interval worsening in right-sided effusion with adjacent airspace disease . Reading Location: [facility]
[2025-06-28 05:12] LABS: AST(SGOT) 33 U/L (<=31); Alanine Aminotransfer ALT/SGPT 44 U/L (<=34); Albumin, Serum 2.6 g/dL (3.4-4.8); Alkaline Phosphatase 139 U/L (35-104); Anion Gap 20 (5-15); BUN 84 mg/dL (4-19); BUN/Creat Ratio 13.3 RATIO (10-20); Bilirubin, Direct 0.42 mg/dL (0.00-0.30); Calcium,Total 7.9 mg/dL (7.6-11.0); Carbon Dioxide 18.3 mmol/L (21.0-32.0); Chloride 97 mmol/L (98-108); Estimated Creatinine Clearance 8.22 ml/min (50-250); Globulin 2.6 g/dL (2.2-4.2); Glucose 217 mg/dL (70-99); LDH 294 U/L (84-246); Potassium 4.4 mmol/L (3.3-5.1)
--- NOTE | 2025-06-28 07:29 | PCM.PN.CARD ---
Subjective Subjective Patient remains intubated and sedated. She is arousable and follows commands. Patient is planned for transesophageal echocardiogram this morning. Heart rate yesterday dropped into the 35 bpm range. This responded to IV Isopril with the patient's heart rate rising into the 60 bpm range. It remained that way until about 0600 hrs. this morning when it dropped back down in the 45 bpm range. Isuprel was increased to 4 mics per minute and her heart rate is now up into the 55 to 60 bpm range. Objective Data Vital Signs: Vital Signs Temp Pulse Resp BP Pulse Ox O2 Del Method O2 Flow Rate 96.8 F L 49 L 18 137/57 H 93 Mechanical Ventilator 50 06/28/25 03:00 06/28/25 07:00 06/28/25 07:00 06/28/25 07:00 06/28/25 07:00 06/28/25 07:00 06/26/25 01:00 FiO2 40 06/28/25 07:00 Oxygen Flow Rate (L/min) 50 Oxygen Delivery Method Mechanical Ventilator Weight: 222 lb 7.143 oz Body Mass Index (BMI) 43.4 Intake & Output: Intake and Output for Last 24 Hours 06/26/25 06/27/25 06/28/25 23:59 23:59 23:59 Intake Total 1315.60 / 1363.75 1649.82 / 2001.15 881.33 / 881.33 Output Total 120 / 120 215 / 215 60 / 60 Balance 1195.60 / 1243.75 1434.82 / 1786.15 821.33 / 821.33 Lab / Micro Data 06/28/25 03:36 06/28/25 03:36 Labs: Laboratory Results - last 24 hr 06/27/25 09:30: Lactic Acid 1.8 06/27/25 11:35: POC Glucose 188 H 06/27/25 17:24: POC Glucose 166 H 06/28/25 01:23: POC Glucose 210 H 06/28/25 03:36: WBC 15.6 H, RBC 3.68 L, Hgb 10.5 L, Hct 31.8 L, MCV 86.4, MCH 28.5, MCHC 33.0, RDW Std Deviation 52.5 H, RDW Coeff of Leif 16.8 H, Plt Count 141 L, MPV 10.6, Immature Gran % (Auto) 1.800 H, Neut % (Auto) 90.0 H, Lymph % (Auto) 4.9 L, [place] % (Auto) 3.1, Eos % (Auto) 0.0, Baso % (Auto) 0.2, Absolute Neuts (auto) 14.1 H, Absolute Lymphs (auto) 0.77 L, Nucleated RBC % 0.3, Sodium 136, Potassium 4.4, Chloride 97 L, Carbon Dioxide 18.3 L, Anion Gap 20 H, BUN 84 H, Creatinine 6.32 H, Estim Creat Clear Calc 8.22 L*, Est GFR (MDRD) Non-Af 6 L, BUN/Creatinine Ratio 13.3, Glucose 217 H, Calcium 7.9, Total Bilirubin 0.57, Direct Bilirubin 0.42 H, AST 33 H, ALT 44 H, Alkaline Phosphatase 139 H, Lactate Dehydrogenase 294 H, Total Protein 5.2 L, Albumin 2.6 L, Globulin 2.6, Albumin/Globulin Ratio 1.0 06/28/25 05:33: POC Glucose 238 H Micro: Microbiology 06/26/25 10:20 Blood Culture (Wb) - Anticubital Right Blood Culture - Preliminary Staphylococcus aureus 06/26/25 Unknown Wound - Other Gram Stain - Final 06/26/25 Unknown Wound - Other Wound Culture - Preliminary Staphylococcus aureus 06/25/25 07:00 Sputum, Induced/Lukens Gram Stain - Final 06/25/25 07:00 Sputum, Induced/Lukens Respiratory Culture - Final Culture exhibits no growth. 06/25/25 01:43 Blood Culture (Wb) - Anticubital Right Blood Culture - Final Meth. resistant Staph. aureus 06/25/25 01:43 Blood Culture (Wb) - Arm Left Bacteria Detection (PCR) - Final Meth. resistant Staph. aureus mecA Resistance Marker 06/25/25 01:43 Blood Culture (Wb) - Arm Left Blood Culture - Preliminary Staphylococcus aureus ABG Data ABG results: ABG 06/27/25 10:07 Specimen Type ART Sample Site L RADIAL pH 7.49 H Bicarbonate Actual 18.8 L Total CO2 20 Base Excess -4 L O2 Saturation TNP O2 % 30.0 ABG pCO2 24.5 L ABG pO2 TNP Gavino Test POS Respiration Rate 18 O2 Delivery Device ADULT VENTILATOR Vent Mode A-C Tidal Volume 450.0 POC PEEP 5 Rhythm Strip Rhythm Strip: Sinus Rhythm (On isopril) Rate: 55 Cardiology Labs/Tests 06/27/25 09:30: Lactic Acid 1.8 06/27/25 10:07: pH 7.49 H, Bicarbonate Actual 18.8 L, Base Excess -4 L, O2 Saturation TNP, ABG pCO2 24.5 L, ABG pO2 TNP, Gavino Test POS 06/28/25 03:36: WBC 15.6 H, RBC 3.68 L, Hgb 10.5 L, Hct 31.8 L, MCV 86.4, MCH 28.5, MCHC 33.0, Plt Count 141 L, MPV 10.6, Immature Gran % (Auto) 1.800 H, Neut % (Auto) 90.0 H, Lymph % (Auto) 4.9 L, [place] % (Auto) 3.1, Eos % (Auto) 0.0, Baso % (Auto) 0.2, Absolute Neuts (auto) 14.1 H, Nucleated RBC % 0.3, Sodium 136, Potassium 4.4, Chloride 97 L, Carbon Dioxide 18.3 L, Anion Gap 20 H, BUN 84 H, Creatinine 6.32 H, Est GFR (MDRD) Non-Af 6 L, BUN/Creatinine Ratio 13.3, Glucose 217 H, Calcium 7.9, Total Bilirubin 0.57, Direct Bilirubin 0.42 H Rhythm: EKG: ECHO: Stress Test: Cardiac Cath: PCI: CT Surgery: Holter monitor: EPS: PPM: CXR: Chest CT Scan: Radiography Diagnostic Testing: Radiology Impression Chest X-Ray 06/28/25 04:10 IMPRESSION: Small interval worsening in right-sided effusion with adjacent airspace disease. Reading Location: [place] [address] Physical Exam Const Constitutional Narrative: Intubated sedated but arousable HEENT normocephalic Eyes EOMs intact bilaterally Resp Resp Narrative: Intubated with extensive respiratory noise. Cardio Cardio Narrative: Difficult to auscultate due to respiratory noise. Rate: bradycardia Rhythm: regular rhythm Heart Sounds: S1 normal and S2 normal; Negative for click, gallop or murmur Extremity Extremity Narrative: Both lower extremities wrapped. Assessment & Plan Assessment/Plan (1) MRSA bacteremia: PLAN: ID is treating the patient. The tunneled catheter has been removed. DESTIN is planned for this morning. (2) PAF (paroxysmal atrial fibrillation): PLAN: Patient remains in sinus bradycardia. When the Levophed was discontinued yesterday her heart rate dropped into the 35 bpm range in sinus rhythm. The patient was placed on Isopril and her heart rate increased to 60 bpm. It slowly decreased this morning and the Isuprel was increased again responding up in the 60 bpm range. The patient is not a candidate for permanent pacemaker implantation given her bacteremia. (3) Congestive heart failure: QUALIFIERS: Heart failure type: systolic Heart failure chronicity: acute on chronic Qualified Code(s): I50.23 - Acute on chronic systolic (congestive) heart failure PLAN: Patient has biventricular failure. She has a known pulmonary hypertension in the 70 mmHg range. EF is known to be in the 20% range. Patient has not had dialysis since Wednesday. Which was June 23. Potassium remains controlled as well as other electrolytes. Nephrology is following. When appropriate hemodynamically the patient should be reinstituted on low-dose hydralazine and then nitrates added for afterload reduction therapy. Beta-ralph therapy should be avoided given her bradycardia. PLAN: Plan 1. Will continue to follow as directed. Please recall us if further assistance is needed. Charges/Coding Visit Charges Inpatient E&M: 13035 [facility] Hosp L2
[2025-06-28] MEDS: CHLORHEXIDINE GLUC 2% CLOTH 1 EACH TOWELETTE TOPICAL (07:37)
[2025-06-28] MEDS: Chlorhexidine 15 ML PO (07:37)
--- NOTE | 2025-06-28 07:59 | NURSING ---
Dr. Adams at bedside for DESTIN
--- NOTE | 2025-06-28 08:00 | ECHOTEE_ITS ---
Reason For Study Reason For Study: Assess for endocardtis Medication DESTIN probe 6VT-D (SN [id number]) passed without difficulty. No complications were noted. Performed a rapid injection of agitated mix of 9 cc saline and 1cc air to assess for atrial septal defect. Patient sedated on vent. No additional medication given. Left Ventricle Normal LV size. The left ventricular ejection fraction is 20 %. There is severe global hypokinesis of the left ventricle. Right Ventricle Moderately dilated right ventricle. Moderate global right ventricular systolic dysfunction. The right ventricular wall motion is normal. Atria Normal atrial septum. Bubble contrast study negative for right to left interatrial shunt. The left atrium is mildly enlarged. There is mild sponatenous contrast in the left atrium. No thrombus is detected in the left atrial appendage. Normal right atrium. Entrance of the SVC into RA has a mass, mobile measuruing 2.4cm by 0.7cm suggestive of thrombus of vegetation. Mitral Valve Normal mitral valve. Mild-Moderate (1-2+) eccentric mitral valve insufficiency. Tricuspid Valve Normal tricuspid valve. Aortic Valve Trisinus/trileaflet aortic valve. Mild focal aortic valve thickening. Trivial aortic valve insufficiency. Pulmonic Valve Normal pulmonic valve. Vessels Normal aortic root. Normal arch. The pulmonary artery is normal size. Pulmonary venous flow normal. Pericardium No pericardial effusion. Doppler Measurements & Calculations TR max aster: 357.0 cm/sec ECHO/Echo Transesophageal (DESTIN) Interpretation Summary The left ventricular ejection fraction is 20 %. Normal LV size. There is severe global hypokinesis of the left ventricle. Moderate global right ventricular systolic dysfunction. Entrance of the SVC into RA has a mass, mobile measuruing 2.4cm by 0.7cm sugges tive of thrombus or vegetation. Ordering Physician: Oswald Bonds Referring Physician: Donal Castle Performed By: Gaye Rodgers RDCS
--- NOTE | 2025-06-28 08:25 | PN.HOSP_ITS ---
Reason for Visit Chief Complaint: Fall, closed head trauma, transient LOC. Objective Data Objective Data Vital Signs: Vital Signs Temp Pulse Resp BP Pulse Ox O2 Del Method O2 Flow Rate 96.8 F L 49 L 18 137/57 H 93 Mechanical Ventilator 50 06/28/25 03:00 06/28/25 07:00 06/28/25 07:00 06/28/25 07:00 06/28/25 07:00 06/28/25 07:00 06/26/25 01:00 FiO2 40 06/28/25 07:00 Oxygen Flow Rate (L/min) 50 Oxygen Delivery Method Mechanical Ventilator Weight: 222 lb 7.143 oz Body Mass Index (BMI) 43.4 Intake & Output: Intake and Output for Last 24 Hours 06/26/25 06/27/25 06/28/25 23:59 23:59 23:59 Intake Total 1315.60 / 1363.75 1649.82 / 2001.15 931.33 / 931.33 Output Total 120 / 120 215 / 215 60 / 60 Balance 1195.60 / 1243.75 1434.82 / 1786.15 871.33 / 871.33 Lab / Micro Data 06/28/25 11:13 06/28/25 03:36 Labs: Laboratory Results - last 24 hr 06/25/25 00:00: Urine Color Brown, Urine Clarity Turbid, Urine pH 5.0, Ur Specific [place] 1.020, Urine Protein 500 H, Urine Glucose (UA) 50 H, Urine Ketones 5 H, Urine Occult Blood 250 H, Urine Nitrite Positive H, Urine Bilirubin 3 H, Urine Urobilinogen 1 H, Ur Leukocyte Esterase 500 H, Urine RBC 50-100 SEEN, Urine WBC 50-100 SEEN, Ur Squamous Epith Cells 0-5 SEEN, Ur Transition Epith Cell 0-5 SEEN, Ur Renal Epithelial Cell 0-5 SEEN, Urine Bacteria 3+, Fine Granular Casts 5-10 SEEN, Urine Mucus 0 SEEN 06/27/25 09:30: Lactic Acid 1.8 06/27/25 11:35: POC Glucose 188 H 06/27/25 17:24: POC Glucose 166 H 06/28/25 01:23: POC Glucose 210 H 06/28/25 03:36: WBC 15.6 H, RBC 3.68 L, Hgb 10.5 L, Hct 31.8 L, MCV 86.4, MCH 28.5, MCHC 33.0, RDW Std Deviation 52.5 H, RDW Coeff of Leif 16.8 H, Plt Count 141 L, MPV 10.6, Immature Gran % (Auto) 1.800 H, Neut % (Auto) 90.0 H, Lymph % (Auto) 4.9 L, [place] % (Auto) 3.1, Eos % (Auto) 0.0, Baso % (Auto) 0.2, Absolute Neuts (auto) 14.1 H, Absolute Lymphs (auto) 0.77 L, Nucleated RBC % 0.3, Sodium 136, Potassium 4.4, Chloride 97 L, Carbon Dioxide 18.3 L, Anion Gap 20 H, BUN 84 H, Creatinine 6.32 H, Estim Creat Clear Calc 8.22 L*, Est GFR (MDRD) Non-Af 6 L, BUN/Creatinine Ratio 13.3, Glucose 217 H, Calcium 7.9, Total Bilirubin 0.57, D irect Bilirubin 0.42 H, AST 33 H, ALT 44 H, Alkaline Phosphatase 139 H, Lactate Dehydrogenase 294 H, Total Protein 5.2 L, Albumin 2.6 L, Globulin 2.6, Albumin/Globulin Ratio 1.0 06/28/25 05:33: POC Glucose 238 H Micro: Microbiology 06/25/25 00:00 Urine, Random Urine Culture - Preliminary Gram positive organism 06/25/25 01:43 Blood Culture (Wb) - Arm Left Bacteria Detection (PCR) - Final Meth. resistant Staph. aureus mecA Resistance Marker 06/25/25 01:43 Blood Culture (Wb) - Arm Left Blood Culture - Final Staphylococcus aureus 06/26/25 10:20 Blood Culture (Wb) - Anticubital Right Blood Culture - Preliminary Staphylococcus aureus 06/26/25 Unknown Wound - Other Gram Stain - Final 06/26/25 Unknown Wound - Other Wound Culture - Preliminary Staphylococcus aureus 06/25/25 07:00 Sputum, Induced/Lukens Gram Stain - Final 06/25/25 07:00 Sputum, Induced/Lukens Respiratory Culture - Final Culture exhibits no growth. 06/25/25 01:43 Blood Culture (Wb) - Anticubital Right Blood Culture - Final Meth. resistant Staph. aureus 06/25/25 01:41 Mucosa - Nose SARS-CoV-2, Influenza & RSV (PCR) - Final ABG Data ABG results: ABG 06/27/25 10:07 Specimen Type ART Sample Site L RADIAL pH 7.49 H Bicarbonate Actual 18.8 L Total CO2 20 Base Excess -4 L O2 Saturation TNP O2 % 30.0 ABG pCO2 24.5 L ABG pO2 TNP Gavino Test POS Respiration Rate 18 O2 Delivery Device ADULT VENTILATOR Vent Mode A-C Tidal Volume 450.0 POC PEEP 5 Radiography Diagnostic Testing: Radiology Impression Chest X-Ray 06/28/25 04:10 IMPRESSION: Small interval worsening in right-sided effusion with adjacent airspace disease. Reading Location: [place] [address] Rhythm Strip Rhythm Strip: Sinus Rhythm (On isopril) Rate: 55 Physical Exam Narrative Seen and examined Patient is still on ventilator. Levophed tapered off but patient on isoproterenol drip started because of severe bradycardia. Chest x-ray done. No fever. On 40% FiO2 ventilator. Did not had BM for 3 days or since admission Physical exam General: Lightly sedated, responsive and tries to open eyes. HEENT: Atraumatic, PERRLA, EOMI, Normocephalic. Oral: ETT and OG tube Neck: Supple, No JVD, Negative Carotid Bruits Chest wall/Lungs: Right subclavicular dialysis catheter removed. Dressing dry. Air entry diminished in bilateral lung bases. On vent Cardiovascular: Soft heart sound, sinus bradycardia, no M/G/R Abdomen: Bowel Sounds sluggish to absent. Right femoral TLC, Soft, Non Tender, Non-Distended : Dialysis dependent, Underwood catheter empty. No renal angle tenderness. No suprapubic tenderness. Extremities: Mild to minimal subcutaneous leg edema, Capillary Refill Less than 3 Seconds Skin: Old scar on bilateral lower legs, Delvin wrap bandage Musculoskeletal: No Tenderness to Palpation of Joints or Extremities Neurological: Nonfocal exam, sedated Psych/Mental Status: Flat affect Assessment & Plan Assessment/Plan (1) Fall: (2) PAF (paroxysmal atrial fibrillation): PLAN: Plan The patient is a 75 y/o F who was admitted through ED after EMS found unconscious in the bathroom fell off toilet and then shock state in the ED. She was unconscious for about 3 minutes. #1. Undifferentiated shock possible cardiogenic /or mixed septic shock: Patient was started on Levophed since beginning in ICU after she was transferred to PCU shortly after admission. She had right femoral TLC. She has endorgan dysfunction including lactic acidosis, hypotension not responsive to fluid and acute hypoxic respiratory failure. Preliminary blood culture shows Staph aureus, mec resistance markers detected therefore the MRSA. Continue broad- spectrum antibiotic. Consult ID. Continue broad-spectrum IV antibiotic, vancomycin and Zosyn. Patient on Levophed and vasopressin. CT abdomen shows potential third spacing 06/27: Discussed with the nursing staff. Patient on 5 mcg of Levophed. Blood culture from 06/26 showing gram-positive cocci in clusters. Tunneled dialysis catheter was removed yesterday and culture was sent. Gram stain of sputum culture from 06/25 shows no organism. Continue eval antibiotic. Decision of reinsertion of dialysis catheter depends on sterilized blood and urgency of hemodialysis therefore based on the decision of ID and senior marketing coordinator. Blood culture from 06/27 ordered. Dialysis catheter when repeat blood culture is clear organism. 06/28: Heart rate dropped in the range of 35 bpm. This responded to isoproterenol/Isupril drip with heart rate rising to 60 bpm. It was started late afternoon yesterday and remained in 60 but dropped back to 45 per minute. Isupril increased to 4 mics per minute and then heart rate 55 to 60 bpm. Patient getting DESTIN. Patient not candidate for permanent pacemaker implantation given her bacteremia. Plan to transfer because of multiple organ failure and increased complexity and severity of heart failure, severe bradycardia, kidney failure, shock state, MRSA bacteremia DESTIN was done today Interpretation Summary The left ventricular ejection fraction is 20 %. Normal LV size. There is severe global hypokinesis of the left ventricle. Moderate global right ventricular systolic dysfunction. Entrance of the SVC into RA has a mass, mobile measuruing 2.4cm by 0.7cm suggestive of thrombus or vegetation. 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 Inspector Machine [employer] Glass and fuel injection servicer agreed for transfer to higher tertiary care center. This might need mechanical suction of thrombus. IV heparin drip after 6 to 8 hours of thoracocentesis. 2. Acute on chronic HFrEF with possible cardiogenic shock with moderate to severe pulmonary hypertension and valvular heart disease, moderately severe TR: Troponins are elevated 97, 94 and 94. 2D echo shows EF 20%, moderate concentric LVH, global hypokinesis, RV moderately dilated. Severe global RV systolic dysfunction. Normal mitral valve but 3+ TR. PASP 64 mm to moderate pulmonary hypertension normal tricuspid valve. IVC dilated. No pericardial effusion. No vegetation noticed. Inspector [employer] consulted. Previous echo shows EF 30% on November 2024 but RV was normal. PASP was reported 65 with 2+ TR and 2+ MR 06/27: Paroxysmal A-fib with current sinus bradycardia. Patient had episodes of atrial fibrillation at the time of admission. 06/28 as mentioned above. Patient had 850 mL right thoracocentesis done. Serum LDH 294, serum total protein 5.2. Fluid total protein 2.8, LDH 101, glucose 240 therefore meets the criteria for transudate. Fluid culture pending. Since morning I called multiple hospitals including [facility], [facility]. [place] felt that he needs to go to [facility] in [facility] Does not have bed open for more than 48 hours. [facility] was called and patient was admitted but does not have actual timeline of transfer or bed availability. [facility] Patient might likely go there today. 3. Acute hypoxic respiratory failure: Currently patient on 40% FiO2. Repeat ABG shows 7.4 on 100% FiO2, 450, 18 and PEEP 5. Previous was VBG 7.18. There was discrepancy noted on the bicarb, bicarb reported 27 on VBG and BMP shows 18 similarly ABG showed bicarb 23 #4. Diabetes mellitus type II: Accu-Chek before meals and at bedtime with Humalog sliding scale coverage and hypoglycemia protocol. #5. Acute encephalopathy due to shock probably related to metabolic and toxic in etiology: Initial CT head was unremarkable. TSH within normal limit. 6. ESRD on hemodialysis: Patient was evaluated by senior marketing coordinator. Patient making urine. Has Underwood catheter. 7. Hypotension with history of hypertension: On vasopressors 8. Hyperlipidemia: continue patient on statin therapy. 9. Chronic normocytic anemia/AOCD: Admission hemoglobin 12.2, MCV 92.4, baseline hemoglobin primarily 10-11 range, no significant 10. Hypothyroidism: continue patient home levothyroxine regimen 11. Morbid Obesity: Weight loss and lifestyle changes for further care if she is out of ICU Constipation: Senna S2 tablet twice daily and MiraLAX ordered. Dulcolax suppository. Tube feed is off in anticipation of reinsertion dialysis catheter DVT prophylaxis: On Eliquis CODE status: Patient STEFANIE is her primary and son secondary and living will is currently in place. Discussed CODE status at length including difference between FULL code, DNR-CCA and DNR-CC status. Following discussions about the differences in these status, requested Full Code status. Charges/Coding Visit Charges Inpatient E&M: 43051 Subs Hosp L3
--- NOTE | 2025-06-28 08:30 | NURSING ---
DESTIN completed at this time
--- NOTE | 2025-06-28 09:04 | CASEMGMT ---
Tertiary Insurance review for hospitals In-network with [employer] MCR insurance if transfer is recommended is as follows: [facility], [facility], [place], [facility], [facility], [facility], , [facility], [facility], and [place]. Yeimi Drake, Discharge Planning Asst.
--- NOTE | 2025-06-28 09:14 | PN.CC_ITS ---
Objective Data Objective Data Vital Signs: Vital Signs Last response 3 Temperature 36.0 C L 06/28/25 03:00 Temperature Source Temporal 06/28/25 03:00 Pulse Rate 59 L 06/28/25 09:12 Pulse Strength Weak (1+) 06/27/25 10:00 Respiratory Rate 18 06/28/25 09:12 Respiratory Effort Mechanically Ventilated 06/28/25 04:00 Respiratory Depth Normal 06/28/25 04:00 Respiratory Pattern Normal 06/28/25 09:12 Blood Pressure 143/57 H 06/28/25 08:00 Blood Pressure Mean 85 06/28/25 08:00 Blood Pressure Source Monitor 06/28/25 08:00 Blood Pressure Position Semi-Fowlers 06/28/25 08:00 Blood Pressure Location Left Arm 06/28/25 08:00 Pulse Ox 94 06/28/25 09:12 Oxygen Delivery Method Mechanical Ventilator 06/28/25 08:00 Oxygen Flow Rate (L/min) 50 06/26/25 01:00 Fraction of Inspired Oxygen (FIO2) 35 06/28/25 09:12 I&O: I&O Last 24 Hours 3 06/27/25 06/27/25 06/28/25 11:59 23:59 11:59 Intake Total 593.62 / 2000.15 1056.20 / 2000.15 956.83 / 956.83 Output Total 110 / 215 105 / 215 60 / 60 Balance 483.62 / 1786.15 951.20 / 1786.15 896.83 / 896.83 I&O: Total Stay 3 06/24/25 23:41 thru 06/28/25 08:51 Intake Total 6956.17 Output Total 395 Balance 6561.17 Current Meds Ordered / Administered: Current meds ordered / Administered 3 Generic Name Dose Route Start Last Admin Trade Name Freq PRN Reason Stop Dose Admin Acetaminophen 650 mg 06/25/25 03:56 Acetaminophen 325 Mg Tablet PO Q4H PRN PRN Fever, pain 1-10/10 Acetaminophen 650 mg 06/25/25 22:48 06/25/25 23:59 Acetaminophen 650 Mg/20 Ml Udc GT 650 mg Q6H PRN PRN Administration Pain 1-10 or Fever Albuterol Sulfate 2.5 mg 06/25/25 03:56 Albuterol 2.5 Mg/3 Ml Vial.Neb. INHALATION Q2H PRN PRN Dyspnea, wheezing Apixaban 5 mg 06/25/25 10:00 06/26/25 21:41 Apixaban 5 Mg Tablet PO 5 mg BID YOLI Administration Atorvastatin Calcium 10 mg 06/25/25 22:00 06/27/25 21:26 Atorvastatin Calcium 10 Mg Tablet PO 10 mg QHS YOLI Administration Calamine/Phenol 1 applic 06/27/25 14:00 06/28/25 05:36 Menthol/Lanolin/Calamine/Znox 113 Gm Tube TOPICAL 1 applic TID YOLI Administration Protocol Chlorhexidine Gluconate 15 ml 06/25/25 10:00 06/28/25 07:37 Chlorhexidine 15 Ml PO 15 ml BID YOLI Administration Chlorhexidine Gluconate 1 each 06/27/25 10:15 06/28/25 07:37 Chlorhexidine Gluc 2% Cloth 1 Each Towelette TOPICAL 1 each DAILY YOLI Administration Chlorhexidine Gluconate 1 each 06/28/25 10:00 Chlorhexidine Gluc 2% Cloth 1 Each [place] TOPICAL DAILY YOLI Glucagon 1 mg 06/25/25 03:56 Glucagon 1 Mg/Ml Syringe IM X1 PRN HYPOGLYCEMIA Protocol Hydrocortisone Sodium Succinate 50 mg 06/25/25 12:00 06/28/25 05:35 Hydrocortisone Sod Succinate 100 Mg/2 Ml Vial IV 50 mg Q6 YOLI Administration Dextrose 250 mls @ 0 mls/hr 06/25/25 03:56 Dextrose 10%-Water IV .Q0M PRN HYPOGLYCEMIA Protocol As Directed Norepinephrine Bitartrate 8 mg 250 mls @ 9.375 mls/hr 06/25/25 06:21 06/27/25 17:00 / Sodium Chloride CONT INF 0 mcg/min .[id number] YOLI 0 mls/hr Titration Protocol 5 MCG/MIN Vancomycin IV-PHARMACY TO DOSE 500 mls @ 250 mls/hr 06/25/25 06:21 1 each/ Sodium Chloride IV PRN PRN Rx to Dose Protocol Propofol 1,000 mg in 100 mls @ 5.682 mls/hr 06/25/25 06:40 06/28/25 06:05 Diprivan CONT INF Not Given .Q12H YOLI Protocol 10 MCG/KG/MIN Fentanyl 100 mls @ 5 mls/hr 06/25/25 06:40 06/28/25 07:01 CONT INF 200 mcg/hr UD YOLI 20 mls/hr Administration Protocol 50 MCG/HR Pantoprazole Sodium 40 mg/ 100 mls @ 330 mls/hr 06/25/25 10:00 06/27/25 22:02 Sodium Chloride IV Infused Q12 YOLI Infusion Vasopressin 20 units/ Sodium 25 mls @ 3 mls/hr 06/25/25 08:55 06/28/25 08:54 Chloride CONT INF Not Given .Q8H20M YOLI 0.04 UNITS/MIN Sodium Chloride 250 mls @ 15 mls/hr 06/26/25 03:05 06/27/25 12:25 IV Infused .[id number] PRN Infusion Saline Flush Sodium Chloride 250 mls @ 15 mls/hr 06/26/25 03:05 IV .[id number] PRN Additional IVPB Infusion Enteral Nutritional Formula 1,000 mls @ 35 mls/hr 06/26/25 10:45 06/28/25 00:00 Nepro Carb Steady GT Infused .[id number] YOLI Infusion Isoproterenol HCl 1 mg/ 250 mls @ 30 mls/hr 06/27/25 17:10 06/28/25 08:51 Dextrose IV 4 mcg/min .Q8H20M YOLI 60 mls/hr Administration Protocol 2 MCG/MIN Insulin Human Lispro 0 unit 06/25/25 12:00 06/28/25 05:34 Insulin Lispro 100 Unit/Ml Insuln.Pen SC 3 u Q6 YOLI Administration Protocol Levothyroxine Sodium 112 mcg 06/25/25 06:00 06/28/25 05:37 Levothyroxine 112 Mcg Tablet PO 112 mcg DAILY@0600 YOLI Administration Midazolam HCl 2 mg 06/27/25 09:11 06/28/25 07:58 Midazolam 2 Mg/2 Ml Syringe IV 2 mg Q2H PRN PRN Administration AGITATION Nystatin 1 applic 06/25/25 03:56 06/28/25 05:36 Nystatin Powder 15gm Bottle TOPICAL 1 applic TID YOLI Administration Protocol Ondansetron HCl 4 mg 06/25/25 03:56 Ondansetron 4 Mg/2 Ml Vial IV Q8H PRN PRN NAUSEA/VOMITING Polyethylene Glycol 17 gm 06/27/25 10:00 06/27/25 09:32 Polyethylene Glycol 3350 17 Gm Packet PO 17 gm DAILY YOLI Administration Senna/Docusate Sodium 2 tablet 06/27/25 09:00 06/27/25 21:26 Senna/Docusate Sodium 1 Tablet GT 2 tablet BID YOLI Administration Sodium Chloride 10 - 40 ml 06/25/25 04:07 06/28/25 05:36 0.9% Saline Lock 10 Ml Syringe IV 20 ml UD PRN Administration SALINE FLUSH Sodium Chloride 5 ml 06/25/25 06:37 Sodium Cl For Inhalation 15 Ml Vial.Neb. INHALATION Q5M PRN Suctioning Sodium Chloride 10 - 40 ml 06/26/25 03:05 0.9% Saline Lock 10 Ml Syringe IV UD PRN SALINE FLUSH Lab / Micro Data 06/28/25 03:36 06/28/25 03:36 Labs: Laboratory Results - last 24 hr 06/25/25 00:00: Urine Color Brown, Urine Clarity Turbid, Urine pH 5.0, Ur Specific [place] 1.020, Urine Protein 500 H, Urine Glucose (UA) 50 H, Urine Ketones 5 H, Urine Occult Blood 250 H, Urine Nitrite Positive H, Urine Bilirubin 3 H, Urine Urobilinogen 1 H, Ur Leukocyte Esterase 500 H, Urine RBC 50-100 SEEN, Urine WBC 50-100 SEEN, Ur Squamous Epith Cells 0-5 SEEN, Ur Transition Epith Cell 0-5 SEEN, Ur Renal Epithelial Cell 0-5 SEEN, Urine Bacteria 3+, Fine Granular Casts 5-10 SEEN, Urine Mucus 0 SEEN 06/27/25 09:30: Lactic Acid 1.8 06/27/25 11:35: POC Glucose 188 H 06/27/25 17:24: POC Glucose 166 H 06/28/25 01:23: POC Glucose 210 H 06/28/25 03:36: WBC 15.6 H, RBC 3.68 L, Hgb 10.5 L, Hct 31.8 L, MCV 86.4, MCH 28.5, MCHC 33.0, RDW Std Deviation 52.5 H, RDW Coeff of Leif 16.8 H, Plt Count 141 L, MPV 10.6, Immature Gran % (Auto) 1.800 H, Neut % (Auto) 90.0 H, Lymph % (Auto) 4.9 L, [place] % (Auto) 3.1, Eos % (Auto) 0.0, Baso % (Auto) 0.2, Absolute Neuts (auto) 14.1 H, Absolute Lymphs (auto) 0.77 L, Nucleated RBC % 0.3, Sodium 136, Potassium 4.4, Chloride 97 L, Carbon Dioxide 18.3 L, Anion Gap 20 H, BUN 84 H, Creatinine 6.32 H, Estim Creat Clear Calc 8.22 L*, Est GFR (MDRD) Non-Af 6 L, BUN/Creatinine Ratio 13.3, Glucose 217 H, Calcium 7.9, Total Bilirubin 0.57, D irect Bilirubin 0.42 H, AST 33 H, ALT 44 H, Alkaline Phosphatase 139 H, Lactate Dehydrogenase 294 H, Total Protein 5.2 L, Albumin 2.6 L, Globulin 2.6, Albumin/Globulin Ratio 1.0 06/28/25 05:33: POC Glucose 238 H Micro: Microbiology 06/25/25 00:00 Urine, Random Urine Culture - Preliminary Gram positive organism 06/25/25 01:43 Blood Culture (Wb) - Arm Left Bacteria Detection (PCR) - Final Meth. resistant Staph. aureus mecA Resistance Marker 06/25/25 01:43 Blood Culture (Wb) - Arm Left Blood Culture - Final Staphylococcus aureus 06/26/25 10:20 Blood Culture (Wb) - Anticubital Right Blood Culture - Preliminary Staphylococcus aureus 06/26/25 Unknown Wound - Other Gram Stain - Final 06/26/25 Unknown Wound - Other Wound Culture - Preliminary Staphylococcus aureus 06/25/25 07:00 Sputum, Induced/Lukens Gram Stain - Final 06/25/25 07:00 Sputum, Induced/Lukens Respiratory Culture - Final Culture exhibits no growth. 06/25/25 01:43 Blood Culture (Wb) - Anticubital Right Blood Culture - Final Meth. resistant Staph. aureus ABG Data ABG results: ABG 06/27/25 10:07 Specimen Type ART Sample Site L RADIAL pH 7.49 H Bicarbonate Actual 18.8 L Total CO2 20 Base Excess -4 L O2 Saturation TNP O2 % 30.0 ABG pCO2 24.5 L ABG pO2 TNP Gavino Test POS Respiration Rate 18 O2 Delivery Device ADULT VENTILATOR Vent Mode A-C Tidal Volume 450.0 POC PEEP 5 Rhythm Strip Rhythm Strip: Sinus Rhythm (On isopril) Rate: 55 Imaging Radiology Impression Chest X-Ray 06/28/25 04:10 IMPRESSION: Small interval worsening in right-sided effusion with adjacent airspace disease. Reading Location: [place] [id number] Assessment and Plan . Assessment and plan: Subjective: No acute events o/n. Underwent DESTIN this AM which showed SVC thrombus. Attempting transfer to [facility] now. Physical Exam: Gen - NAD, obese, intubated HEENT - MMM. ETT in place Resp - +scattered rhonchi. Breathing nonlabored CV - RRR. No m/g/r Abd - Soft, NT, ND Ext - No c/c. +anasarca Skin - No rashes? Neuro - Intermittent agitation on sedation, can sometimes follow commands. Moving extremities I have reviewed the pertinent vital sign, laboratory, and imaging data. ASSESSMENT: # Acute hypoxemic respiratory failure: # Acute HFrEF (heart failure with reduced ejection fraction): LVEF 20%, moderate RV dilation # Aortic valve stenosis # Septic shock due to MRSA bacteremia - suspected source from dialysis catheter # SVC thrombus # Paroxysmal Afib # Bradycardia # Acute encephalopathy # Diabetes # ESRD on HD # Transaminitis # Anemia # Thrombocytopenia # Obesity PLAN: -Adjusted vent VC+ 400/14/5/35%. Follow blood gas, CXR -Started on isuprel per cardiology for severe bradycardia. Off levo/vaso. Cont stress dose hydrocortisone -Wean fentanyl gtt as tolerated, PRN versed pushes. Avoiding precedex/propofol d/t severe bradycardia -Cont vanc per ID recs. Repeat BCx 06/26 with MRSA as well -Cardiology following, performed DESTIN this AM showing SVC thrombus. Attempting transfer to [facility] now for possible IR/surgical intervention on this -Tunneled dialysis catheter removed 06/26. Will need temporary line placed soon but ideally needs line holiday/clearance of bacteremia. Await further ID recs regarding this -Agree with R diagnostic/therapeutic thoracentesis as per ID recs, will likely also facilitate ventilator weaning -Monitor for worsening volume overload, need for urgent HD FEN/GI: Can start TF if no other procedures planned today Proph DVT/GI: Hold eliquis for procedures, protonix Updated family at bedside. Attempting transfer to [facility] Critical Care Time: 50 mins The entirety of this encounter was done via telemedicine using both audio and video. Consent was unable to be obtained for the telemedicine encounter due to the patient's mental status.
[2025-06-28] MEDS: Polyethylene Glycol 3350 17 GM PACKET PO (10:01)
[2025-06-28] MEDS: Pantoprazole Sodium 40 MG in 0.9% Normal Saline (100mL MB+) 100 ML 330 MG IV (10:01)
[2025-06-28] MEDS: Senna/Docusate Sodium 1 Tablet 2 TABLET GT (10:02)
--- NOTE | 2025-06-28 10:50 | PCM.PN.ID ---
Physical Exam Narrative On vent, no fever, family at bedside, had DESTIN this AM Const no apparent distress Resp Effort and Inspection: mechanically ventilated Auscultation: diminished lung sounds Cardio Rate: bradycardia GI soft to palpation, non-tender and non-distended Extremity General Extremity: edema Skin no rashes or lesions noted ID ID: Route of nutrition/ use of supplements: [] Nutritional Intake: [] IV Site: [] Underwood Catheter: [] Assessment & Plan Assessment/Plan (1) Septic shock: (2) MRSA bacteremia: PLAN: Suspect HD line as source, removed 06/26/25. Will repeat bcx today. Splinter hemorrhage seen on L 1st toe. Recommend thoracentesis of R side if possible with fluid studies and cx. TTE showed no vegetation. Cont vanc. Ok for temp HD line placement, but the longer she can be line-free, the better. DESTIN with reported SVC thrombus, transfer planned. Will follow, d/w Dr. Zelaya
[2025-06-28 11:19] LABS: Hematocrit 30.8 % (37-47); Hemoglobin 10.5 g/dL (12.0-15.0); Immature Granulocytes Count 0.210 X10^3/uL (0.0-0.0); Mean Corp Hgb Conc 34.1 g/dL (32-36); Mean Corpuscular Volume 86.8 fL (81-99); Mean Platelet Vol. 10.2 fl (6.2-12.0); NRBC Flagged by Analyzer 0.2 % (0-5); Platelet Count 134 K/mm3 (150-450); RBC Distribution Width CV 16.8 % (11.6-14.6); RBC Distribution Width SD 52.6 fl (35.1-43.9); Red Blood Count 3.55 M/mm3 (4.2-5.4); White Blood Count 14.1 K/mm3 (4.4-11.0)
[2025-06-28 11:41] LABS: Prothrombin Time (Protime)PT. 19.6 SECONDS (11.7-14.9)
[2025-06-28 11:42] LABS: Partial Thromboplast Time 31.8 Seconds (24.1-36.2)
--- NOTE | 2025-06-28 11:56 | PN.SURG_ITS ---
Subjective Subjective Patient evaluated intubated with at bedside. No concerns with previous dialysis catheter site. Objective Data Objective Data Vital Signs: Vital Signs Temp Pulse Resp BP Pulse Ox O2 Del Method O2 Flow Rate 97.8 F 54 L 14 137/60 H 94 Mechanical Ventilator 50 06/28/25 09:00 06/28/25 10:00 06/28/25 10:00 06/28/25 10:00 06/28/25 10:00 06/28/25 10:00 06/26/25 01:00 FiO2 40 06/28/25 10:00 Oxygen Flow Rate (L/min) 50 Oxygen Delivery Method Mechanical Ventilator Weight: 222 lb 7.143 oz Body Mass Index (BMI) 43.4 Intake & Output: Intake and Output for Last 24 Hours 06/26/25 06/27/25 06/28/25 23:59 23:59 23:59 Intake Total 1315.60 / 1363.75 1649.82 / 2001.15 1116.50 / 1116.50 Output Total 120 / 120 215 / 215 60 / 60 Balance 1195.60 / 1243.75 1434.82 / 1786.15 1056.50 / 1056.50 Lab / Micro Data 06/28/25 11:13 06/28/25 03:36 Labs: Laboratory Results - last 24 hr 06/25/25 00:00: Urine Color Brown, Urine Clarity Turbid, Urine pH 5.0, Ur Specific [place] 1.020, Urine Protein 500 H, Urine Glucose (UA) 50 H, Urine Ketones 5 H, Urine Occult Blood 250 H, Urine Nitrite Positive H, Urine Bilirubin 3 H, Urine Urobilinogen 1 H, Ur Leukocyte Esterase 500 H, Urine RBC 50-100 SEEN, Urine WBC 50-100 SEEN, Ur Squamous Epith Cells 0-5 SEEN, Ur Transition Epith Cell 0-5 SEEN, Ur Renal Epithelial Cell 0-5 SEEN, Urine Bacteria 3+, Fine Granular Casts 5-10 SEEN, Urine Mucus 0 SEEN 06/27/25 11:35: POC Glucose 188 H 06/27/25 17:24: POC Glucose 166 H 06/28/25 01:23: POC Glucose 210 H 06/28/25 03:36: WBC 15.6 H, RBC 3.68 L, Hgb 10.5 L, Hct 31.8 L, MCV 86.4, MCH 28.5, MCHC 33.0, RDW Std Deviation 52.5 H, RDW Coeff of Leif 16.8 H, Plt Count 141 L, MPV 10.6, Immature Gran % (Auto) 1.800 H, Neut % (Auto) 90.0 H, Lymph % (Auto) 4.9 L, [place] % (Auto) 3.1, Eos % (Auto) 0.0, Baso % (Auto) 0.2, Absolute Neuts (auto) 14.1 H, Absolute Lymphs (auto) 0.77 L, Nucleated RBC % 0.3, Sodium 136, Potassium 4.4, Chloride 97 L, Carbon Dioxide 18.3 L, Anion Gap 20 H, BUN 84 H, Creatinine 6.32 H, Estim Creat Clear Calc 8.22 L*, Est GFR (MDRD) Non-Af 6 L, BUN/Creatinine Ratio 13.3, Glucose 217 H, Calcium 7.9, Total Bilirubin 0.57, D irect Bilirubin 0.42 H, AST 33 H, ALT 44 H, Alkaline Phosphatase 139 H, Lactate Dehydrogenase 294 H, Total Protein 5.2 L, Albumin 2.6 L, Globulin 2.6, Albumin/Globulin Ratio 1.0 06/28/25 05:33: POC Glucose 238 H 06/28/25 11:01: POC Glucose 215 H 06/28/25 11:13: WBC 14.1 H, RBC 3.55 L, Hgb 10.5 L, Hct 30.8 L, MCV 86.8, MCH 29.6, MCHC 34.1, RDW Std Deviation 52.6 H, RDW Coeff of Leif 16.8 H, Plt Count 134 L, MPV 10.2, Immature Gran % (Auto) 1.500 H, Neut % (Auto) 90.0 H, Lymph % (Auto) 4.5 L, [place] % (Auto) 3.9, Eos % (Auto) 0.0, Baso % (Auto) 0.1, Absolute Neuts (auto) 12.7 H, Absolute Lymphs (auto) 0.64 L, Nucleated RBC % 0.2, PT 19.6 H, INR 1.6, APTT 31.8 Micro: Microbiology 06/25/25 00:00 Urine, Random Urine Culture - Preliminary Yeast Like Organism 06/25/25 01:43 Blood Culture (Wb) - Arm Left Bacteria Detection (PCR) - Final Meth. resistant Staph. aureus mecA Resistance Marker 06/25/25 01:43 Blood Culture (Wb) - Arm Left Blood Culture - Final Staphylococcus aureus 06/26/25 10:20 Blood Culture (Wb) - Anticubital Right Blood Culture - Preliminary Staphylococcus aureus 06/26/25 Unknown Wound - Other Gram Stain - Final 06/26/25 Unknown Wound - Other Wound Culture - Preliminary Staphylococcus aureus 06/25/25 07:00 Sputum, Induced/Lukens Gram Stain - Final 06/25/25 07:00 Sputum, Induced/Lukens Respiratory Culture - Final Culture exhibits no growth. 06/25/25 01:43 Blood Culture (Wb) - Anticubital Right Blood Culture - Final Meth. resistant Staph. aureus 06/25/25 01:41 Mucosa - Nose SARS-CoV-2, Influenza & RSV (PCR) - Final ABG Data ABG results: ABG 06/27/25 10:07 Sample Site L RADIAL O2 Saturation TNP O2 % 30.0 ABG pO2 TNP Gavino Test POS Respiration Rate 18 O2 Delivery Device ADULT VENTILATOR Vent Mode A-C Tidal Volume 450.0 POC PEEP 5 Radiography Diagnostic Testing: Radiology Impression Chest X-Ray 06/28/25 04:10 IMPRESSION: Small interval worsening in right-sided effusion with adjacent airspace disease. Reading Location: [place] [address] Rhythm Strip Rhythm Strip: Sinus Rhythm (On isopril) Rate: 55 Physical Exam Chest Chest Narrative: Right upper chest- op-site removed. Open area was cleaned with alcohol swab and 2 x 2 dressing was reapplied. No oozing or active bleeding was noted. Assessment & Plan Assessment/Plan (1) Hemodialysis catheter infection: QUALIFIERS: Encounter type: subsequent encounter Qualified Code(s): T82.7XXD - Infection and inflammatory reaction due to other cardiac and vascular devices, implants and grafts, subsequent encounter PLAN: I am following this patient in conjunction with Dr. Francois in Dr. Perdomo's absence. He has independently evaluated this patient. Patient had a DESTIN this morning with SVC thrombus Plan to for patient to be transferred to a tertiary facility Recommend changing dressing daily to the right chest site where previous catheter was placed No plans to place a dialysis catheter at this time We will continue to monitor patient Charges/Coding Visit Charges Inpatient E&M: 96011 Subs Hosp L2
--- NOTE | 2025-06-28 13:24 | RAD_ITS ---
EXAM: AP inspiration expiration views. CLINICAL HISTORY: Status post right thoracentesis. COMPARISON: Prior study dated June 28, 2025 earlier in the day. TECHNIQUE: AP inspiration expiration views were obtained. FINDINGS: No evidence of pneumothorax following the right thoracentesis. Residual left basilar atelectasis and/or infiltrate. Stable position of the endotracheal tube and the nasogastric tube. RAD/Chest Insp/Exp 2 View IMPRESSION: No evidence of pneumothorax on the post right thoracentesis examination. Reading Location: [place] [address]
--- NOTE | 2025-06-28 13:30 | US_ITS ---
PROCEDURE: THORACENTESIS W US 06/28/2025 REASON FOR EXAM: RIGHT PLEURAL EFFUSION TECHNIQUE: THORACENTESIS W US. Informed consent was obtained. The overlying skin was prepped and draped in the usual sterile fashion. Following this, a 5 Tajik drainage catheter was placed into the right pleural space. 860 cc of aime colored fluid was aspirated. 100 mL sample was sent to the laboratory. The patient tolerated the procedure well. COMPARISON: None FINDINGS: Successful right thoracentesis. US/Thoracentesis W US IMPRESSION: Successful right thoracentesis with removal of 860 mL of aime colored fluid. A 100 mL sample was sent to the laboratory for analysis. The patient tolerated the procedure well. Reading Location: [place] [address]
--- NOTE | 2025-06-28 13:41 | NURSING ---
Bedside set up for thoracentesis
[2025-06-28] MEDS: Lidocaine 2% (20 ml mdv) 20 ML Vial INFILT (14:00)
[2025-06-28 14:31] LABS: Cytology, Body Fluid / CSF SEE PATHOLOGY REPORT
--- NOTE | 2025-06-28 14:39 | PN.RENAL_ITS ---
Subjective Subjective On ventilator. Just underwent thoracentesis at bedside with ~800ml fluid removed. Objective Data Objective Data Vital Signs: Vital Signs Temp Pulse Resp BP Pulse Ox O2 Del Method O2 Flow Rate 98.1 F 64 14 130/56 H 93 Mechanical Ventilator 50 06/28/25 12:00 06/28/25 14:27 06/28/25 14:27 06/28/25 13:00 06/28/25 14:27 06/28/25 13:00 06/26/25 01:00 FiO2 40 06/28/25 13:00 Oxygen Flow Rate (L/min) 50 Oxygen Delivery Method Mechanical Ventilator Weight: 100.9 kg Body Mass Index (BMI) 43.4 Intake & Output: Intake and Output for Last 24 Hours 06/26/25 06/27/25 06/28/25 23:59 23:59 23:59 Intake Total 1315.60 / 1363.75 1649.82 / 2001.15 1417.16 / 1417.16 Output Total 120 / 120 215 / 215 1070 / 1070 Balance 1195.60 / 1243.75 1434.82 / 1786.15 347.16 / 347.16 Lab / Micro Data 06/28/25 11:13 06/28/25 03:36 Labs: Laboratory Results - last 24 hr 06/25/25 00:00: Urine Color Brown, Urine Clarity Turbid, Urine pH 5.0, Ur Specific [place] 1.020, Urine Protein 500 H, Urine Glucose (UA) 50 H, Urine Ketones 5 H, Urine Occult Blood 250 H, Urine Nitrite Positive H, Urine Bilirubin 3 H, Urine Urobilinogen 1 H, Ur Leukocyte Esterase 500 H, Urine RBC 50-100 SEEN, Urine WBC 50-100 SEEN, Ur Squamous Epith Cells 0-5 SEEN, Ur Transition Epith Cell 0-5 SEEN, Ur Renal Epithelial Cell 0-5 SEEN, Urine Bacteria 3+, Fine Granular Casts 5-10 SEEN, Urine Mucus 0 SEEN 06/27/25 11:35: POC Glucose 188 H 06/27/25 17:24: POC Glucose 166 H 06/28/25 01:23: POC Glucose 210 H 06/28/25 03:36: WBC 15.6 H, RBC 3.68 L, Hgb 10.5 L, Hct 31.8 L, MCV 86.4, MCH 28.5, MCHC 33.0, RDW Std Deviation 52.5 H, RDW Coeff of Leif 16.8 H, Plt Count 141 L, MPV 10.6, Immature Gran % (Auto) 1.800 H, Neut % (Auto) 90.0 H, Lymph % (Auto) 4.9 L, [place] % (Auto) 3.1, Eos % (Auto) 0.0, Baso % (Auto) 0.2, Absolute Neuts (auto) 14.1 H, Absolute Lymphs (auto) 0.77 L, Nucleated RBC % 0.3, Sodium 136, Potassium 4.4, Chloride 97 L, Carbon Dioxide 18.3 L, Anion Gap 20 H, BUN 84 H, Creatinine 6.32 H, Estim Creat Clear Calc 8.22 L*, Est GFR (MDRD) Non-Af 6 L, BUN/Creatinine Ratio 13.3, Glucose 217 H, Calcium 7.9, Total Bilirubin 0.57, D irect Bilirubin 0.42 H, AST 33 H, ALT 44 H, Alkaline Phosphatase 139 H, Lactate Dehydrogenase 294 H, Total Protein 5.2 L, Albumin 2.6 L, Globulin 2.6, Albumin/Globulin Ratio 1.0 06/28/25 05:33: POC Glucose 238 H 06/28/25 11:01: POC Glucose 215 H 06/28/25 11:13: WBC 14.1 H, RBC 3.55 L, Hgb 10.5 L, Hct 30.8 L, MCV 86.8, MCH 29.6, MCHC 34.1, RDW Std Deviation 52.6 H, RDW Coeff of Leif 16.8 H, Plt Count 134 L, MPV 10.2, Immature Gran % (Auto) 1.500 H, Neut % (Auto) 90.0 H, Lymph % (Auto) 4.5 L, [place] % (Auto) 3.9, Eos % (Auto) 0.0, Baso % (Auto) 0.1, Absolute Neuts (auto) 12.7 H, Absolute Lymphs (auto) 0.64 L, Nucleated RBC % 0.2, PT 19.6 H, INR 1.6, APTT 31.8 Micro: Microbiology 06/25/25 00:00 Urine, Random Urine Culture - Final Yeast, not Julia albicans GNR lactose director enterprise data architecture 06/25/25 01:43 Blood Culture (Wb) - Arm Left Bacteria Detection (PCR) - Final Meth. resistant Staph. aureus mecA Resistance Marker 06/25/25 01:43 Blood Culture (Wb) - Arm Left Blood Culture - Final Staphylococcus aureus 06/26/25 10:20 Blood Culture (Wb) - Anticubital Right Blood Culture - Preliminary Staphylococcus aureus 06/26/25 Unknown Wound - Other Gram Stain - Final 06/26/25 Unknown Wound - Other Wound Culture - Preliminary Staphylococcus aureus 06/25/25 07:00 Sputum, Induced/Lukens Gram Stain - Final 06/25/25 07:00 Sputum, Induced/Lukens Respiratory Culture - Final Culture exhibits no growth. 06/25/25 01:43 Blood Culture (Wb) - Anticubital Right Blood Culture - Final Meth. resistant Staph. aureus 06/25/25 01:41 Mucosa - Nose SARS-CoV-2, Influenza & RSV (PCR) - Final Radiography Diagnostic Testing: Radiology Impression Chest X-Ray 06/28/25 04:10 IMPRESSION: Small interval worsening in right-sided effusion with adjacent airspace disease. Reading Location: [facility] Transesophageal Echocardiogram 06/28/25 08:00 Interpretation Summary The left ventricular ejection fraction is 20 %. Normal LV size. There is severe global hypokinesis of the left ventricle. Moderate global right ventricular systolic dysfunction. Entrance of the SVC into RA has a mass, mobile measuruing 2.4cm by 0.7cm suggestive of thrombus or vegetation. Ordering Physician: Oswald Bonds Referring Physician: Donal Castle Performed By: Gaye Rodgers RDCS Rhythm Strip Rhythm Strip: Sinus Rhythm (On isopril) Rate: 55 Physical Exam Narrative On ventilator support no obvious distress s1s2 no murmurs; heart rate 60s lungs diminished breath sounds abdomen soft, no organomegaly legs wrapped, no pitting edema to thighs no cyanosis Indwelling Underwood with scant yellow urine in tubing Assessment & Plan Assessment/Plan (1) Acute on chronic renal failure: QUALIFIERS: Acute renal failure type: unspecified Chronic kidney disease stage: stage 3 (moderate) Chronic kidney disease stage 3 subtype: stage 3a (GFR 45-59) Qualified Code(s): N17.9 - Acute kidney failure, unspecified; N18.31 - Chronic kidney disease, stage 3a PLAN: Acute renal failure from biopsy proven ATN, dialysis dependent since March 2025 on Wednesday, , Wednesday schedule, no noted renal recovery at this time and patient has remained hemodialysis dependent. Last hemodialysis June 23. +MRSA bacteremia, tunneled HD catheter removed 06/26, ID following for antibiotic management, vancomycin and Zosyn. Some improvement in blood pressures and patient off IV pressors. Serum creatinine slowly trending up, today her creatinine is 6.3, potassium normal, bicarb 18. Urine output has been around 100 to 200 mL/day. Per cumulative I&O patient is around 6L positive. No emergent need for renal placement therapy. Plan for dialysis once new hemodialysis line placed when okay with ID and surgery. DESTIN with reported SVC thrombus. Transfer to tertiary center underway, [facility] contacted, no bed at this time. Labs ordered for am. Assessment and plan reviewed with Dr. Gupta.
[2025-06-28 15:06] LABS: Body Fluid Mononuclear WBC # 0.066 10^3/uL; Body Fluid Mononuclear WBC % 40.0 %; Body Fluid Polynuclear WBC # 0.099 10^3/uL; Body Fluid Polynuclear WBC % 60.0 %; White Blood Count/Body Fluid 0.165 10^3/uL
[2025-06-28 15:26] LABS: Glucose, Body Fluid 240 mg/dL (Not Establ.)
--- NOTE | 2025-06-28 15:36 | CASEMGMT ---
TC to [facility] notifying of pt transfer requirements
[2025-06-28 15:54] LABS: Auto B Fluid Analyzer BKGD Ct COUNTS W/IN LIMITS (W/IN LIMITS)
[2025-06-28 15:55] LABS: Appearance/Body Fluid CLEAR; Color/Body Fluid YELLOW; Source- Body Fluid THORACENTESIS
--- NOTE | 2025-06-28 16:20 | PCM.DC.SUM ---
Providers Date of Admission: 06/25/25 Date of Discharge: 06/28/25 Primary Care Physician: Donal Castle MD Consultations 06/25/25 03:56 Consult: Nephrology Routine Consulting Provider: Lorraine Gupta Reason for Consult: ESRD on HD EMERGENT Consult: No Notified: Yes Date Notified: 06/25/25 Time Notified: 07:43 Method of Notification: Answering Service 06/25/25 06:21 Consult: Rn Navigator / Pulmonary Medicine Routine Consulting Provider: Intensivists/Pulmonary Med Reason for Consult: Shock, undifferentiated. EMERGENT Consult: Yes MD Notified: Yes Date Notified: 06/25/25 Time Notified: 05:42 Method of Notification: Text 06/26/25 07:36 Consult: Cardiology Routine Consulting Provider: Joao Ramirez Reason for Consult: biventicular failure, shock, cardiogenic EMERGENT Consult: No Notified: Yes Date Notified: 06/26/25 Time Notified: 07:36 Method of Notification: Text 06/26/25 08:04 Consult: Infectious Disease Routine Consulting Provider: Oswald Bonds Reason for Consult: shock, septic growing MRSA bacteremia EMERGENT Consult: No Notified: Yes Date Notified: 06/26/25 Time Notified: 08:04 Method of Notification: Text 06/26/25 10:54 Consult: General Surgery Routine Consulting Provider: Antonio Perdomo Reason for Consult: Infected Right subclavian dialysis catheter EMERGENT Consult: No MD Notified: Yes Date Notified: 06/26/25 Time Notified: 10:54 Method of Notification: Text Reason For Visit: FALL, LEUKOCYTOSIS OF UNCLEAR ETIOLOGY, NEW PAF Diagnosis Discharge Diagnosis (1) Fall: Status: Acute Code(s): W19.XXXA - Unspecified fall, initial encounter (2) PAF (paroxysmal atrial fibrillation): Status: Acute Code(s): I48.0 - Paroxysmal atrial fibrillation Plan The patient is a 75 y/o F who was admitted through ED after EMS found unconscious in the bathroom fell off toilet and then shock state in the ED. She was unconscious for about 3 minutes. #1. Undifferentiated shock possible cardiogenic /or mixed septic shock: Patient was started on Levophed since beginning in ICU after she was transferred to PCU shortly after admission. She had right femoral TLC. She has endorgan dysfunction including lactic acidosis, hypotension not responsive to fluid and acute hypoxic respiratory failure. Preliminary blood culture shows Staph aureus, mec resistance markers detected therefore the MRSA. Continue broad-spectrum antibiotic. Consult ID. Continue broad-spectrum IV antibiotic, vancomycin and Zosyn. Patient on Levophed and vasopressin. CT abdomen shows potential third spacing 06/27: Discussed with the nursing staff. Patient on 5 mcg of Levophed. Blood culture from 06/26 showing gram-positive cocci in clusters. Tunneled dialysis catheter was removed yesterday and culture was sent. Gram stain of sputum culture from 06/25 shows no organism. Continue eval antibiotic. Decision of reinsertion of dialysis catheter depends on sterilized blood and urgency of hemodialysis therefore based on the decision of ID and statistical assistant. Blood culture from 06/27 ordered. Dialysis catheter when repeat blood culture is clear organism. 06/28: Heart rate dropped in the range of 35 bpm. This responded to isoproterenol/Isupril drip with heart rate rising to 60 bpm. It was started late afternoon yesterday and remained in 60 but dropped back to 45 per minute. Isupril increased to 4 mics per minute and then heart rate 55 to 60 bpm. Patient getting DESTIN. Patient not candidate for permanent pacemaker implantation given her bacteremia. Plan to transfer because of multiple organ failure and increased complexity and severity of heart failure, severe bradycardia, kidney failure, shock state, MRSA bacteremia DESTIN was done today Interpretation Summary The left ventricular ejection fraction is 20 %. Normal LV size. There is severe global hypokinesis of the left ventricle. Moderate global right ventricular systolic dysfunction. Entrance of the SVC into RA has a mass, mobile measuruing 2.4cm by 0.7cm suggestive of thrombus or vegetation. 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 Psych Coordinator and hub borer agreed for transfer to higher tertiary care center. This might need mechanical suction of thrombus. IV heparin drip after 6 to 8 hours of thoracocentesis. 2. Acute on chronic HFrEF with possible cardiogenic shock with moderate to severe pulmonary hypertension and valvular heart disease, moderately severe TR: Troponins are elevated 97, 94 and 94. 2D echo shows EF 20%, moderate concentric LVH, global hypokinesis, RV moderately dilated. Severe global RV systolic dysfunction. Normal mitral valve but 3+ TR. PASP 64 mm to moderate pulmonary hypertension normal tricuspid valve. IVC dilated. No pericardial effusion. No vegetation noticed. Psych Coordinator consulted. Previous echo shows EF 30% on November 2024 but RV was normal. PASP was reported 65 with 2+ TR and 2+ MR 06/27: Paroxysmal A-fib with current sinus bradycardia. Patient had episodes of atrial fibrillation at the time of admission. 06/28 as mentioned above. Patient had 850 mL right thoracocentesis done. Serum LDH 294, serum total protein 5.2. Fluid total protein 2.8, LDH 101, glucose 240 therefore meets the criteria for transudate. Fluid culture pending. Since morning I called multiple hospitals including [facility], [facility]. [facility] felt that he needs to go to [facility] in [facility] Does not have bed open for more than 48 hours. [facility] was called and patient was admitted but does not have actual timeline of transfer or bed availability. Further with patient's permission, [facility] was called and patient accepted there. Patient might likely go there today. Decision made to [facility] the patient. Situation is complex with high severity including mixture of septic shock, cardiogenic shock, MRSA bacteremia, infected SVC thrombophlebitis, ESRD on hemodialysis, severe bradycardia on isoproterenol drip. 3. Acute hypoxic respiratory failure: Currently patient on 40% FiO2. Repeat ABG shows 7.4 on 100% FiO2, 450, 18 and PEEP 5. Previous was VBG 7.18. There was discrepancy noted on the bicarb, bicarb reported 27 on VBG and BMP shows 18 similarly ABG showed bicarb 23 #4. Diabetes mellitus type II: Accu-Chek before meals and at bedtime with Humalog sliding scale coverage and hypoglycemia protocol. #5. Acute encephalopathy due to shock probably related to metabolic and toxic in etiology: Initial CT head was unremarkable. TSH within normal limit. 6. ESRD on hemodialysis: Patient was evaluated by statistical assistant. Patient making urine. Has Underwood catheter. 7. Hypotension with history of hypertension: On vasopressors 8. Hyperlipidemia: continue patient on statin therapy. 9. Chronic normocytic anemia/AOCD: Admission hemoglobin 12.2, MCV 92.4, baseline hemoglobin primarily 10-11 range, no significant 10. Hypothyroidism: continue patient home levothyroxine regimen 11. Morbid Obesity: Weight loss and lifestyle changes for further care if she is out of ICU Constipation: Senna S2 tablet twice daily and MiraLAX ordered. Dulcolax suppository. Tube feed is off in anticipation of reinsertion dialysis catheter DVT prophylaxis: On Eliquis CODE status: Patient STEFANIE is her primary and son secondary and living will is currently in place. Discussed CODE status at length including difference between FULL code, DNR-CCA and DNR-CC status. Following discussions about the differences in these status, requested Full Code status. Medications at Discharge Home Medications atorvastatin 10 mg tablet 10 mg PO QHS cholesterol 08/31/22 aspirin 81 mg chewable tablet 81 mg PO DAILYCM 90 days #90 tabs 10/21/24 carvedilol 6.25 mg tablet (Coreg) 6.25 mg PO BID #60 tabs 12/01/24 furosemide 40 mg tablet 40 mg PO QAM #30 tabs 03/12/25 levothyroxine 100 mcg tablet (Synthroid) 112 mcg PO DAILY thyroid 04/04/25 hydralazine 25 mg tablet 25 mg PO TID #270 tabs 05/25/25 isosorbide dinitrate 20 mg tablet 20 mg PO TID #270 tabs 05/25/25 Physical Exam Narrative Patient greater than 50 mL thoracocentesis in the afternoon. Plan to start IV heparin drip 6 to 8 hours and check CBC prior to start of IV heparin drip. But patient might get transferred prior to start of heparin drip for CBC. Weight / BMI Weight Weight: 222 lb 7.143 oz Body Mass Index (BMI) 43.4 ABG / Lab / Microbiology Data 06/28/25 11:13 06/28/25 03:36 Laboratory: Laboratory Results - last 24 hr 06/25/25 00:00: Urine Color Brown, Urine Clarity Turbid, Urine pH 5.0, Ur Specific Motley 1.020, Urine Protein 500 H, Urine Glucose (UA) 50 H, Urine Ketones 5 H, Urine Occult Blood 250 H, Urine Nitrite Positive H, Urine Bilirubin 3 H, Urine Urobilinogen 1 H, Ur Leukocyte Esterase 500 H, Urine RBC 50-100 SEEN, Urine WBC 50-100 SEEN, Ur Squamous Epith Cells 0-5 SEEN, Ur Transition Epith Cell 0-5 SEEN, Ur Renal Epithelial Cell 0-5 SEEN, Urine Bacteria 3+, Fine Granular Casts 5-10 SEEN, Urine Mucus 0 SEEN 06/27/25 11:35: POC Glucose 188 H 06/27/25 17:24: POC Glucose 166 H 06/28/25 01:23: POC Glucose 210 H 06/28/25 03:36: WBC 15.6 H, RBC 3.68 L, Hgb 10.5 L, Hct 31.8 L, MCV 86.4, MCH 28.5, MCHC 33.0, RDW Std Deviation 52.5 H, RDW Coeff of Leif 16.8 H, Plt Count 141 L, MPV 10.6, Immature Gran % (Auto) 1.800 H, Neut % (Auto) 90.0 H, Lymph % (Auto) 4.9 L, Berks % (Auto) 3.1, Eos % (Auto) 0.0, Baso % (Auto) 0.2, Absolute Neuts (auto) 14.1 H, Absolute Lymphs (auto) 0.77 L, Nucleated RBC % 0.3, Sodium 136, Potassium 4.4, Chloride 97 L, Carbon Dioxide 18.3 L, Anion Gap 20 H, BUN 84 H, Creatinine 6.32 H, Estim Creat Clear Calc 8.22 L*, Est GFR (MDRD) Non-Af 6 L, BUN/Creatinine Ratio 13.3, Glucose 217 H, Calcium 7.9, Total Bilirubin 0.57, Direct Bilirubin 0.42 H, AST 33 H, ALT 44 H, Alkaline Phosphatase 139 H, Lactate Dehydrogenase 294 H, Total Protein 5.2 L, Albumin 2.6 L, Globulin 2.6, Albumin/Globulin Ratio 1.0 06/28/25 05:33: POC Glucose 238 H 06/28/25 11:01: POC Glucose 215 H 06/28/25 11:13: WBC 14.1 H, RBC 3.55 L, Hgb 10.5 L, Hct 30.8 L, MCV 86.8, MCH 29.6, MCHC 34.1, RDW Std Deviation 52.6 H, RDW Coeff of Leif 16.8 H, Plt Count 134 L, MPV 10.2, Immature Gran % (Auto) 1.500 H, Neut % (Auto) 90.0 H, Lymph % (Auto) 4.5 L, Berks % (Auto) 3.9, Eos % (Auto) 0.0, Baso % (Auto) 0.1, Absolute Neuts (auto) 12.7 H, Absolute Lymphs (auto) 0.64 L, Nucleated RBC % 0.2, PT 19.6 H, INR 1.6, APTT 31.8 06/28/25 14:04: Fluid WBC 0.165, Fluid Tot Cell Count 0.176 H, Fld Polynuclear WBCs # 0.099, Fld Polynuclear WBCs % 60.0, Fluid Mononuclear WBCs 0.066, Fld Mononuclear WBCs % 40.0 06/28/25 : Fluid Glucose 240, Fluid Total Protein 2.8, Fluid LDH 101 Microbiology: Microbiology 06/27/25 13:00 Blood Culture (Wb) - Central Line Blood Culture - Preliminary 06/25/25 00:00 Urine, Random Urine Culture - Final Yeast, not Julia albicans GNR lactose paint stock clerk 06/25/25 01:43 Blood Culture (Wb) - Arm Left Bacteria Detection (PCR) - Final Meth. resistant Staph. aureus mecA Resistance Marker 06/25/25 01:43 Blood Culture (Wb) - Arm Left Blood Culture - Final Staphylococcus aureus 06/26/25 10:20 Blood Culture (Wb) - Anticubital Right Blood Culture - Preliminary Staphylococcus aureus 06/26/25 Unknown Wound - Other Gram Stain - Final 06/26/25 Unknown Wound - Other Wound Culture - Preliminary Staphylococcus aureus 06/25/25 07:00 Sputum, Induced/Lukens Gram Stain - Final 06/25/25 07:00 Sputum, Induced/Lukens Respiratory Culture - Final Culture exhibits no growth. 06/25/25 01:43 Blood Culture (Wb) - Anticubital Right Blood Culture - Final Meth. resistant Staph. aureus 06/25/25 01:41 Mucosa - Nose SARS-CoV-2, Influenza & RSV (PCR) - Final Radiography Diagnostic Testing: Radiology Impression Chest X-Ray 06/28/25 04:10 IMPRESSION: Small interval worsening in right-sided effusion with adjacent airspace disease. Reading Location: [facility] Transesophageal Echocardiogram 06/28/25 08:00 Interpretation Summary The left ventricular ejection fraction is 20 %. Normal LV size. There is severe global hypokinesis of the left ventricle. Moderate global right ventricular systolic dysfunction. Entrance of the SVC into RA has a mass, mobile measuruing 2.4cm by 0.7cm suggestive of thrombus or vegetation. Ordering Physician: Oswald Bonds Referring Physician: Donal Castle Performed By: Gaye Rodgers RDCS Chest X-Ray 06/28/25 13:24 IMPRESSION: No evidence of pneumothorax on the post right thoracentesis examination. Reading Location: [place] [id number] D/C Instructions DC O2, CPAP, BIPAP Needs Home O2 Discharge instructions: No Meaningful Use Info Meaningful Use Meaningful Use Diagnoses (Choose all that apply): None applicable Discharge Plan Admission Admit Date/Time: 06/25/25 06:21 Primary Reason for Your Visit: Septic and cardiogenic shock due to MRSA bacteremia and bradycardia Attending Provider: Saeed Zelaya Primary Care Provider: Donal Castle Consulting Providers: Ana Chambers; Madhu Varela; Stephen Gaston; Christian Paez; Mark Mcfarland; Jad Sherman; Dwight Naylor; Lan Marcano; Silvia Meehan; Taj Frank; Onur Medina; Lenny Rodriguez; Tamika Mann; Houston Rendon; Vita Cox; Allison,M[place]geta; Kishore Patrick; Lg Marte; Clarence Goodwin; Vincent Santamaria; Ismael Wood; Len Dial; Yohan Tovar; Ti Shoemaker; Lorraine Gupta; Joao Ramirez; Oswald Bonds; Antonio Perdomo Discharge Orders/Prescriptions Prescriptions: No Action atorvastatin 10 mg tablet 10 mg PO QHS levothyroxine [Synthroid] 100 mcg tablet 112 mcg PO DAILY carvedilol [Coreg] 6.25 mg tablet 6.25 mg PO BID Qty: 60 11RF Rx Instructions: must administer with a meal/food furosemide 40 mg tablet 40 mg PO QAM Qty: 30 0RF aspirin 81 mg Tablet,Chewable 81 mg PO DAILYCM 90 Days Qty: 90 0RF hydralazine 25 mg tablet 25 mg PO TID Qty: 270 3RF isosorbide dinitrate 20 mg tablet 20 mg PO TID Qty: 270 3RF Rx Instructions: allow nitrate-free interval of 12-14 hrs per 24-hr period Referrals / Follow Up: Donal Castle MD [Primary Care Provider] - Disposition Disposition (needs filled in before D/C Order can be placed): Acute Care Hospital Charges/Coding Visit Charges Inpatient E&M: 43914 Disch Hosp >30min
--- NOTE | 2025-06-28 16:54 | NURSING ---
Patient transitioned to life flight cot and equipment. Report given to life flight crew. Fentanyl drip stopped, and life flight crew taking Isuprel drip.
[2025-06-28 19:48] LABS: Red Cell Count/Body Fluid 3900 /mm3
[2025-06-28 20:43] LABS: Body Fluid QC Type(s) BF3Q
[2025-06-29 10:37] LABS: Pathologist Comment/Body Fluid Reviewed
[2025-07-02 09:25] LABS: Neutrophil (Segs) 57 %
[2025-07-02 10:08] LABS: pH, Body Fluid 11254 7.6 (Not Estab.)
== END 2025-06-28 17:03 | disposition short-term general hospital (02) | DRG 314 ==
LOC: ED 06-25 01:26 → PCU 06-25 03:19 → ICU 06-25 06:15
PROVIDERS: Internal Medicine; Internal Medicine Pulmonary Disease; Admitting Provider Family Medicine; Emergency Provider Student in an Organized Health Care Education/Training Program; PCP Family Medicine; Visit Provider Internal Medicine
DX: T80.211A Bloodstream infection due to central venous catheter, initial encounter (principal); A41.02 Sepsis due to Methicillin resistant Staphylococcus aureus; R57.0 Cardiogenic shock; R65.21 Severe sepsis with septic shock; J96.02 Acute respiratory failure with hypercapnia; J96.01 Acute respiratory failure with hypoxia; G92.8 Other toxic encephalopathy; N18.6 End stage renal disease; I50.23 Acute on chronic systolic (congestive) heart failure; I82.210 Acute embolism and thrombosis of superior vena cava; I13.2 Hypertensive heart and chronic kidney disease with heart failure and with stage 5 chronic kidney disease, or end stage renal disease; Z68.41 Body mass index [BMI] 40.0-44.9, adult; I24.89 Other forms of acute ischemic heart disease; S06.9X1A Unspecified intracranial injury with loss of consciousness of 30 minutes or less, initial encounter; T82.7XXA Infection and inflammatory reaction due to other cardiac and vascular devices, implants and grafts, initial encounter; N17.9 Acute kidney failure, unspecified; T82.868A Thrombosis due to vascular prosthetic devices, implants and grafts, initial encounter; E11.22 Type 2 diabetes mellitus with diabetic chronic kidney disease; E03.9 Hypothyroidism, unspecified; I35.0 Nonrheumatic aortic (valve) stenosis; D63.1 Anemia in chronic kidney disease; I48.0 Paroxysmal atrial fibrillation; E66.01 Morbid (severe) obesity due to excess calories; E11.42 Type 2 diabetes mellitus with diabetic polyneuropathy; E78.00 Pure hypercholesterolemia, unspecified; Z99.2 Dependence on renal dialysis; W18.12XA Fall from or off toilet with subsequent striking against object, initial encounter; I50.814 Right heart failure due to left heart failure; Y71.8 Miscellaneous cardiovascular devices associated with adverse incidents, not elsewhere classified; R29.6 Repeated falls; R74.01 Elevation of levels of liver transaminase levels; D69.6 Thrombocytopenia, unspecified; Y92.002 Bathroom of unspecified non-institutional (private) residence as the place of occurrence of the external cause; Z79.890 Hormone replacement therapy; Z79.82 Long term (current) use of aspirin; Z79.899 Other long term (current) drug therapy
CPT/HCPCS: 31500; 31720; 32555; 36600; 70450; 71045; 71046; 71275; 72125; 74176; 80048; 80053; 80076; 81001; 82140; 82550; 82803; 82945; 82962; 83605; 83615; 83735; 83986; 84100; 84157; 84443; 84478; 84484; 85025; 85610; 85730; 87040; 87070; 87075; 87077; 87086; 87088; 87149; 87186; 87205; 87631; 88108; 88305; 88313; 89050; 93005; 93306; 93312; 93320; 93325; 94002; 94003; 97802; 97803; 99252; 99285; Q9967; A4216; C1751; G0463; J0696

== ENCOUNTER → 2025-09-05 | Outpatient (CLI) | payer MEDICARE, SELFPAY ==
--- NOTE | 2025-09-05 11:55 | ECHOD_ITS ---
Reason For Study Reason For Study: CHF Procedure This was a 2D Doppler, Color Flow transthoracic echocardiogram. The study was technically difficult. Exam performed in department. Left Ventricle Normal LV size. The left ventricular ejection fraction is 20 %. There is severe global hypokinesis of the left ventricle. Right Ventricle Mildly dilated right ventricle. Normal systolic function. Atria Normal left atrium. Normal right atrium. Mitral Valve Normal mitral valve. Mild (1+) eccentric mitral valve insufficiency. Tricuspid Valve Normal tricuspid valve. Mild (1+) tricuspid valve insufficiency. Pulmonary artery systolic pressure is 33 mmHg. Aortic Valve Trisinus/trileaflet aortic valve. Mild focal aortic valve calcification. Pulmonic Valve Normal pulmonic valve. Great Vessels Normal aortic root. The pulmonary artery is normal size. Inferior vena cava collapse with sniff. Pericardium/Pleural Trivial pericardial effusion. MMode/2D Measurements & Calculations LVIDd: 5.6 cm IVSd: 1.1 cm LVOT diam: 2.0 cm LVIDs: 4.5 cm LVPWd: 0.85 cm LVOT area: 3.3 cm2 RVDd: 4.3 cm FS: 19.6 % Ao root diam: 3.2 cm asc Aorta Diam: 3.2 cm LAV(MOD- bp): 53.3 ml LAV(MOD- bp) Indexed: 27.2 ml/m2 LAV(MOD- sp2): 64.9 ml LAV(MOD- sp4): 43.8 ml SV(MOD- sp4): 26.8 ml LVAd ap4: 31.5 cm2 LVAd ap2: 32.1 cm2 LVLd ap4: 7.6 cm LVLd ap2: 7.9 cm SI(MOD- sp4): 13.7 ml/m2 EDV(MOD-sp4): 106.6 ml EDV(MOD-sp2): 109.7 ml EDV(sp4-el): 110.4 ml EDV(sp2-el): 110.3 ml LVAs ap4: 26.5 cm2 LVAs ap2: 26.7 cm2 LVLs ap4: 7.3 cm LVLs ap2: 7.0 cm ESV(MOD-sp4): 79.8 ml ESV(MOD-sp2): 84.4 ml ESV(sp4-el): 81.8 ml ESV(sp2-el): 86.4 ml EF(MOD-sp4): 25.1 % EF(MOD-sp2): 23.1 % EF(sp4-el): 26.0 % SV(MOD-sp2): 25.4 ml SV(sp4-el): 28.7 ml Ao sinus diam: 3.2 cm SI(MOD-sp2): 12.9 ml/m2 Ao ST Junction: 2.3 cm LA dimension(2D): 4.7 cm LA A4 area: 17.7 cm2 TAPSE: 0.72 cm RA A4 area: 17.4 cm2 Time Measurements MV dec time: 0.19 sec Doppler Measurements & Calculations MV E max aster: 98.4 cm/sec Ao V2 max: 182.1 cm/sec LV V1 max: 90.5 cm/sec Ao max P.3 mmHg LV V1 max P.3 mmHg Ao V2 mean: 129.6 cm/sec LV V1 mean P.0 mmHg Ao mean P.7 mmHg LV V1 mean: 67.0 cm/sec Ao V2 VTI: 29.3 cm LV V1 VTI: 14.2 cm AV (velocity ratio): 0.48 SUNIL(I,D): 1.6 cm2 SUNIL(V,D): 1.6 cm2 SV(LVOT): 46.3 ml PA V2 max: 76.0 cm/sec TR max aster: 266.5 cm/sec TR max P.8 mmHg ECHO/Echo Complete Interpretation Summary Normal LV size. The left ventricular ejection fraction is 20 %. There is severe global hypokinesis of the left ventricle. Mildly dilated right ventricle. Ordering Physician: TOÑO STEWART Referring Physician: TOÑO STEWART Performed By: Ricarda Frederick RDCS
== END | disposition home or self-care (01) ==
LOC: MRI 11:34
PROVIDERS: PCP Family Medicine
DX: R93.1 Abnormal findings on diagnostic imaging of heart and coronary circulation (principal); R94.31 Abnormal electrocardiogram [ECG] [EKG]
CPT/HCPCS: 93306

== ENCOUNTER → 2025-09-14 | Outpatient (CLI) | payer MEDICARE, SELFPAY ==
--- NOTE | 2025-09-14 07:05 | MRI_ITS ---
PROCEDURE: SPINE LUMBAR (ROUTINE) 09/14/2025 REASON FOR EXAM: OSTEOMYELITIS Personal history end-stage renal disease, diabetes. Infection of the spine. Symptoms for 11 months. TECHNIQUE: Procedure Code: MRISPL Modality: MR Procedure: SPINE LUMBAR (ROUTINE) COMPARISON: June 25, 2025 FINDINGS: Sensitivity for infection is decreased without the use of intravenous contrast. Vertebrae: There is some depression of the anterior superior endplate of S1 that is stable compared to prior CT of June 25, 2025. This is associated with some endplate irregularity, vacuum disc. No significant edema is seen at the opposing endplates. Minimal edema of the inferior endplate where there is some gas and fluid signal. Feature similar to Schmorl's node. Fatty marrow changes at the opposing endplates of L4/5 at L5/S1. Mild endplate irregularity at L3/4; most of the endplate is intact. There is not a significant amount of bone loss, but there is some mild edema at the opposing endplates greatest at the inferior endplate of L3. Fluid signal is seen at the disc space. Contrast was not provided to assess enhancement. No paraspinal phlegmon or fluid collection/abscess is seen. Very minimal edema is degenerative at the opposing endplates of L1/2 and L2/3. Alignment: Straightened Conus Medullaris: Terminates at L1/2. No abnormal signal in the distal cord or conus. L1-2: Moderate loss of disc height. Mild, diffuse disc osteophyte protrusion. Moderate thickening of ligamentum flavum. Mild facet hypertrophy. No central stenosis or exit foraminal narrowing. L2-3: Mild loss of disc height. Height mild, diffuse disc osteophyte protrusion. Enoylqak-am-ivhfgu thickening of ligamentum flavum. Mild facet hypertrophy. No central stenosis. No exit foraminal narrowing. L3-4: Mild disc space narrowing. Mild, diffuse disc osteophyte protrusion. Fluid signal in the disc space. No phlegmon. See above description regarding the vertebra. Moderate facet hypertrophy and flny-ln-jrctrtze thickening of the ligamentum flavum. No central stenosis. Left exit foraminal narrowing from disc osteophyte and facet. Right exit foramen is clear. Correlate with left L3 radiculopathy. L4-5: Kuytbpdl-ww-ndseoe loss of disc height. Moderate, diffuse disc osteophyte protrusion. Moderate to severe facet hypertrophy and moderate thickening of ligamentum flavum. There is encroachment on the central canal and stenosis to 9 mm AP. Exit foramina are narrowed bilaterally. Correlate with L4 radiculopathy. L5-S1: Depression of the anterior superior endplate of S1 described above. No change. Moderate, diffuse disc osteophyte protrusion. Severe facet hypertrophy. Mild thickening of ligamentum flavum. Encroachment of the central canal from hypertrophic facets. Central stenosis to 8 mm AP.. Borderline stenosis of the exit foramina mainly from facet disease. Possibly some contact of the traversing left S1 nerve root from disc osteophyte. Correlate with left L5 and S1 radiculopathy. Sacrum: Significant fatty marrow replacement in the iliac bones and imaged portions of the sacrum. Subtle linear low signal in the sacral ala, gbfja-rpswnyb-brax-left. This can be seen with insufficiency fractures. MRI/Spine Lumbar (Routine) IMPRESSION: 1. No change in the appearance of the depressed anterior superior endplate of S1. Minimal edema. New, mild edema inferior endplate of S1 possibly from Schmorl's node. 2. Fluid signal at the disc space of L3 and L4. There is some endplate irregu larity and mild edema but no substantive volume loss across the disc space and there is no paraspinal fluid collection. Contra st was not provided. These represent some features of infection (fluid signal in the disc space and edema). Other featur es are not present. This is equivocal for infection at this disc space. 3. Multilevel degenerative disc disease. See above descriptions. Central chidi nosis L4/5 and L5/S1. Potential radiculopathy left L3, bilaterally at L4, left L5 and S1. 4. Subtle linear low signal in the sacral ala bilaterally may represent early insufficiency fractures. Incompletely imaged. Note: In patients with renal dysfunction, MR contrast can be used provided the patient is not anuric, and a macrocyclic contrast agent such as Dotarem is used. Reading Location: [id number]
--- OUTSIDE RECORDS SUMMARY | 2025-09-14 07:31 | XMS RPT_ITS | CCD ---
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 Girish Simon Primary Care Provider Dr. Girish Simon Referring Provider Dr. Sean Mascorro Attending Provider Dr. Kenan Banuelos Attending Provider [phone] Dr. Milton Love Admit Provider Dr. Milton Love Referring Provider [phone] Milton Love Other Provider Dr. Anai Nixon Attending Provider Dr. Anai Nixon Other Provider Girish Simon Primary Care Provider Rene SANTIAGO, Yasmeen Cristofer Unavailable Rene SANTIAGO, Yasmeen Cristofer Unavailable [place], Dr. Girish Conway Primary Care Unavaila ble Radha, MsVenu Sampson Attending Unavailab le [place], Dr. Girish Conway Primary [facility] Unavaila ble Radha, MsVenu Smapson Attending Unavailab le [place], Dr. Girish Conway Primary [facility] Unavaila ble Radha, MsVenu Sampson Attending Unavailab manny Garcia, MsVenu Sampson Attending Unavailab le [place], Dr. Girish Conway [facility] Unavaila ble Radha, MsVenu Sampson Attending Unavailab manny Simon, Dr. Girish Conway Primary [facility] Unavaila ble [place], Dr. Girish Conway [facility] Unavaila ble Radha, MsVenu Sampson Attending Unavailab le Radha, MsVenu Sampson Attending Unavailab le [place], Dr. Girish Conway [facility] Unavaila ble [place], Dr. Girish Conway Primary [facility] Unavaila ble Radha, MsVenu Sampson Attending Unavailab le [place], Dr. Girish Conway Primary [facility] Unavaila ble Radha, MsVenu Sampson Attending Unavailab le [place], Dr. Girish Conway Primary [facility] Unavaila ble Radha, MsVenu Sampson Attending Unavailab le [place], Dr. Girish Conway Primary Care Unavaila ble Radha, MsVenu Sampson Attending Unavailab manny Garcia, MsVenu Sampson Attending Unavailab le [place], Dr. Girish Conway Primary [facility] Unavaila ble [place], Dr. Girish Conway Primary Care Unavaila ble Radha, MsVenu Sampson Attending Unavailab manny Garcia, MsVenu Sampson Attending Unavailab le [place], Dr. Girish Conway Primary Care Unavaila ble [place], Dr. Girish Conway Primary [facility] Unavaila ble Radha, Ms. Carey Sampson Attending Unavailab manny Simon, Dr. Girish Conway Attending Unavaila ble [place], Dr. Girish Conway Primary Care Unavaila ble [place], Dr. Girish Conway Referring Unavaila ble [place], Dr. Girish Conway Primary [...] Unavailab Girish Roland MD Primary Care Provider [phone] Girish Simon MD Primary Care Provider Coopervaishalier II, OD, Sarah H Unavailable Suman SANTIAGO, Donal Primary Care Provider [phone] Suman [facility]AG[facility], [facility] Suman S[facility]AGO, [facility] Primary Care Provider Dr. Kenan White MD Attending Provider Dr. Kenan White MD Referring Provider Dr. Princess Cui DO Emergency Provider [phone] Campos DO, Dr. Street Admit Provider Unavail [...] Provider Hong SANTIAGO, Dr. Estrada Other Provider [facility] FREIGHT BOOKER-C, Man Pierson Other Provider Jud BOATENG, Janene Ricketts Other Provider Dr. Seth Garnica DO Attending Provider Javier SANTIAGO, Dr. Street Other Provider Unavailable Ashley SANTIAGO, Dr. Shepherd Attending Provider Milagros SANTIAGO, Dr. Portillo Attending Provider Dr. Girish Campos DO Referring Provider Elhamv marla Varela MD, Dr. Leung Other Provider Marilin SANTIAGO, Dr. Mitchell Other Provider Philippe SANTIAGO, Dr. Gonzales Other Provider Dr. Mark Mcfarland DO Attending Provider Dr. Mark Mcfarland DO Other Provider Whit SANTIAGO, Dr. Girish Cruz Other Provider Cyndy SANTIAGO, Dr. Quintanilla Other Provider [phone] Krys SANTIAGO, Dr. Montenegro Other Provider Shefali SANTIAGO, Dr. Vega Other Provider Monika SANTIAGO, Dr. Vang Other Provider Adam SANTIAGO, Dr. Mohr Other Provider Mackenzie SANTIAGO, Dr. Lundberg Other Provider Julieta SANTIAGO, Dr. Conrad Other Provider Unavailabl e Allison SANTIAGO, Dr. Dalal Other Provider Darnell SANTAIGO, Dr. Novak Other Provider Estuardo SANTIAGO, Dr. Castanon Other Provider Christa CARDOSO, Dr. Lima Other Provider Hina SANTIAGO, Dr. Kaur Other Provider [phone] Jayro CARDOSO, Dr. Harrington Other Provider Guy SANTIAGO, Dr. Almanzar Other Provider Navid SANTIAGO, Dr. Luke Other Provider Javier SANTIAGO, Dr. Street Attending Provider Unavaila ble Nahun CARDOSO, Dr. Ann Other Provider [phone] Pancho CARDOSO, Dr. Byrnes Emergency Provider Raghavendra SANTIAGO, Dr. Braun Admit Provider Raghavendra SANTIAGO, Dr. Braun Other Provider Nahun CARDOSO, Dr. Ann Referring Provider Donal Will MD Attending Provider Donal Will MD Referring Provider Dr. Joao Ramirez MD Referring Provider Angie SANTIAGO, Dr. Pack Attending Provider Donal Will MD Primary Care Provider Donal Will MD Referring Provider Dr. Joao Ramirez MD Attending Provider Donal Will MD Attending Provider Onofre Mejia Attending Provider Onofre Mejia Referring Provider Dr. Fitz Deleon DO Emergency Provider Wanda SANTIAGO, Dr. Miltno Arizmendi Admit Provider Wanda SANTIAGO, Dr. Milton Arizmendi Attending Provider Wanda SANTIAGO, Dr. Milton Arizmendi Other Provider Wanda SANTIAGO, Dr. Milton Arizmendi Other Provider Dr. Seth Garnica DO Other Provider Milagros SANTIAGO, Dr. Portillo Other Provider Priscila SANTIAGO, Dr. Shepherd Other Provider Alonso SANTIAGO, Dr. Peters Other Provider Ivonne VO, Dr. Zavala Other Provider Dr. Fitz Ryan DO Attending Provider Dr. Fitz Ryan DO Other Provider Cammie SANTIAGO, Dr. Akers Other Provider Raghavendra SANTIAGO, Dr. Braun Other Provider Wanda SANTIAGO, Dr. Milton Arizmendi Attending Provider Nahun CARDOSO, Dr. Ann Attending Provider Priscila SANTIAGO, Dr. Shepherd Attending Provider Marcus SANTIAGO, Dr. Byrnes Attending Provider Ivonne VO, Dr. Zavala Referring Provider Conor SANTIAGO, Dr. Antonio Garcia Attending Provider Raghavendra SANTIAGO, Dr. Braun Attending Provider Suman SANTIAGO, Donal Primary Care Provider Dr. Joao Ramirez MD Attending Provider Dr. Joao Ramirez MD Referring Provider Donal Will MD Referring Provider Suman SANTIAGO, Donal Primary Care Provider Donal Will MD Referring Provider Angie SANTIAGO, Dr. Pack Attending Provider Dr. Fitz Ryan DO Referring Provider Donal Will MD Attending Provider YUAN, SERGO Attending Unavailable YUAN, SREGO Referring Unavailable SUMAN, CHALON Primary Care Unavailable COOPERRIDER II, SARAH H Attending Unavailabl e SELF Referring Unavailable SUMAN, CHALON Primary Care Unavailable YUAN, SERGO Attending Unavailable COOPERRIDER II, SARAH H Referring Unavailabl e SUMAN, CHALON Primary Care Unavailable SASMARIEL, YEN Attending Unavailable YUAN, SERGO Referring Unavailable SUMAN, CHALON Primary Care Unavailable COOPERRIDER II, SARAH H Attending Unavailabl e COOPERRIDER II, SARAH H Referring Unavailabl e SUMAN, CHALON Primary Care Unavailable YUAN, SERGO Attending Unavailable YUAN, SERGO Referring Unavailable SUMAN, CHALON Primary Care Unavailable YUAN, SERGO Attending Unavailable YUAN, SERGO Referring Unavailable SUMAN, CHALON Primary Care Unavailable YUAN, SERGO Attending Unavailable YUAN, SERGO Referring Unavailable SUMAN, CHALON Primary Care Unavailable Kristan SANTIAGO, Dr. Alemna Emergency Provider Unavailab manny Chambers MD, Dr. Ana Méndez Admit Provider [phone] Reyes SANTIAGO, Dr. Ana Méndez Attending Provider PROVIDER, UNKNOWN Attending Unavailable PROVIDER, UNKNOWN Admitting Unavailable Suman SANTIAGO, Donal Conway Primary Care Provider [phone] Suman SANTIAGO, Donal Conway Primary Care Provider [phone] Girish Simon MD Primary Care Provider DONAL WILL Primary Care Unavailable TOÑO STEWART Attending Unavailable DONAL WILL Primary Care Unavailable SYSTEM, PROVIDER NOT IN Attending Unavaila ble SYSTEM, PROVIDER NOT IN Referring Unavaila ble ASIA CONWAY Admitting Unavailabl e [facility] Consulting Unavailable ASIA CONWAY Attending Unavailabl e TORY KUMAR Referring Unavailable DONAL WILL Primary Care Unavailable [facility] Consulting Unav ailable RONY PRADO Consulting Unavailabl e RONY PRADO Consulting Unavailabl e SAEED ZELAYA Referring Unavailable PRINCESS DUGAN Admitting Unavailabl e ALY ABRAMS Attending Unava ilable DONAL WILL Primary Care Unavailable TOÑO STEWART Consulting Unavailable [facility] Consulting Unav ailable [facility] Consulting Unavailable LISBETH DIOP Consulting Unavailable FRANCISCO HOOD Consulting GIRISH Correa Primary Care Unavailable TORY KUMAR Attending Unavailable TIFFANY ROMAN Consulting Unavailable Suman, Chalyoni Primary Care Unavailable Ana Chambers Consulting Unavailable Ana Chambers Admitting Unavailable Saeed Zelaya Attending Unavailable Madhu Varela Consulting Unavailable Stephen Gaston Consulting Unavailable Christian Paez Consulting Unavailable Mark Mcfarland Consulting Unavailable Girish Sherman Consulting Unavailable Dwight Naylor Consulting Unavailable Lan Marcano Consulting Unavailable Silvia Meehan Consulting UnavailTaj Mercer Consulting Unavailable Onur Medina Consulting Unavailable Lenny Rodriguez Consulting Unavailable Tamika Mann Consulting Unavailable Houston Rendon Consulting Unavailable Vita Cox Consulting Unavailable Mulugeta Cooper Consulting Unavailable Kishore Patrick Consulting Unavailable Lg Marte Consulting Unavailable Clarence Goodwin Consulting Unavailable Vincent Santamaria Consulting Unavailable Ismael Wood Consulting Unavailable Len Dial Consulting Unavailable Yohan Tovar Consulting Unavailable Ti Shoemaker Consulting Unavailable Lorraine Gupta Consulting Unavailable Joao Ramirez Consulting Unavailable Oswald Bonds Consulting Unavailable Antonio Perdomo Consulting Unavailable Garcia Saeed Consulting Unavailable Suri Valencia Attending Unavailable Joao Ramirez Attending Unavailable Milton Muñoz Admitting Unavailable [facility], [place] Primary Care Unavailable Seth Garnica Attending Unavailable Bandar Linares Consulting UnavailLorraine Singh Consulting Unavailable Milton Muñoz Consulting Unavailable Seth Garnica Consulting Unavailable Aparna Mabry Admitting Unavailable Aparna Mabry Consulting Unavailable Seth Garnica Attending Unavailable Suman, Chalon Primary Care Unavailable Suamn, Chalon Primary Care Unavailable Girish Campos Consulting Unavailable Seth Garnica Attending Unavailable Girsih Campos Admitting Unavailable Laura Donahue Consulting Unavailable Jagjit Dominguez Consulting Unavailable Kj Olvera Consulting Unavailable Ramone Adams Consulting Unavailable Ruth Ann Mendez Consulting Unavailable Joao Ramirez Consulting Unavailable Bandar Linares Consulting UnavailAbelardo Farmer Consulting Unavailable [place], Sean Consulting Unavailable Roof FREIGHT BOOKER, Man Pierson Consulting Unavailable Jud BOATENG, Janene Ricketts Consulting Unavail able Girish Herrera Consulting Unavailable Mark Mcfarland Attending Unavailable Girish Campos Consulting Unavailable Girish Campos Admitting Unavailable Girish Campos Referring Unavailable Suman, Chalon Primary Care Unavailable Laura Donahue Consulting Unavailable Jagjit Dominguez Consulting Unavailable Kj Olvera Consulting Unavailable Ramone Adams Consulting Unavailable Ruth Ann Mendez Consulting Unavailable Joao Ramirez Consulting Unavailable Bandar Linares Consulting UnavailAbelardo Farmer Consulting Unavailable [place], Sean Consulting Unavailable Roof FREIGHT BOOKER, Man H Consulting Unavailable Jud BOATENG, Janene Ricketts Consulting Unavail able Madhu Varela Consulting Unavailable Stephen Gaston Consulting [...] Tovar Consulting Unavailable Ti Shoemaker Consulting Unavailable Girish Herrera Consulting Unavailable Suman, Chalon Primary Care Unavailable Kenan White Attending Unavailable Kenan White Referring Unavailable Suman, Chalon Primary Care Unavailable Joao Ramirez Attending Unavailable Joao Ramirez Referring Unavailable Joao Ramirez Attending Unavailable Seth Garnica Attending Unavailable Seth Garnica Consulting Unavailable Aparna Mabry Admitting Unavailable Aparna Mabry Consulting Unavailable Suman, Chalon Primary Care Unavailable Seth Garnica Attending Unavailable Seth Garnica Consulting Unavailable Girish Campos Attending Unavailable Girish Herrera Attending Unavailable Suman, Chalon Primary Care Unavailable Joao Ramirez Attending Unavailable Joao Ramirez Referring Unavailable SumanDonal mays Attending Unavailable Suman, Chalon Referring Unavailable Suman, Chalon Primary Care Unavailable Suman, Chalon Primary Care Unavailable Seth Garnica Attending Unavailable Seth Garnica Referring Unavailable Antonio Perdomo Attending Unavailable Saeed Zelaya Referring Unavailable Almas Massey Attending Unavailable Almas Massey Referring Unavailable Suman, Chalon Primary Care Unavailable Suman, Chalon Primary Care Unavailable AngieHudsonRamone Attending Unavailable Suman, Chalon Attending Unavailable Suman, Chalon Referring Unavailable Suman, Chalon Primary Care Unavailable Suman, Chalon Primary Care Unavailable Demiter, Onofre Referring Unavailable Demiter, Onofre Attending Unavailable Suman, Chalon Referring Unavailable Suman, Chalon Primary Care Unavailable Suman, Chalon Attending Unavailable LICEA, NICKIE Referring Unavailable LICEANICKIE Attending Unavailable Suman, Chalon Primary Care Unavailable Suman, Chalon Primary Care Unavailable Demiter, Onofre Referring Unavailable Demiter, Onofre Attending Unavailable Suman, Chalon Primary Care Unavailable Joao Ramirez Attending Unavailable Joao Ramirez Referring Unavailable Suman, Chalon Primary Care Unavailable Angie, Ramone Attending Unavailable Suman, Chalon Primary Care Unavailable Angie, [place] Attending Unavailable Antonio Perdomo Attending Unavailable Joao Francois Consulting Unavailable Princess Coronado Consulting Unavailable Joao Francois Attending Unavailable NICKIE LICEA Attending Unavailable LICEA, NICKIE Referring Unavailable Suman, Chalon Primary Care Unavailable Jarrell Muñozolas Kyleigh Admitting Unavailable Jarrell Muñozolas Kyleigh Consulting Unavailable Suman, Chalon Primary Care Unavailable Fitz Ryan Attending Unavailable Seth Garnica Consulting Unavailable Bandar Linares Consulting UnavailJoao Pollock Consulting Unavailable Lorraine Gupta Consulting Unavailable Princess Coronado Consulting Unavailable Fitz Ryan Consulting Unavailable Oswald Bonds Consulting Unavailable Aparna Mabry Consulting Unavailable Ana Chambers Consulting Unavailable Suman, Chalon Primary Care Unavailable Ana Chambers Admitting Unavailable Garcia Saeed Attending Unavailable Madhu Varela Consulting Unavailable Stephen Gaston Consulting Unavailable Christian Paez Consulting Unavailable Mark Mcfarland Consulting Unavailable Girish Sherman Consulting Unavailable Dwight Naylor Consulting Unavailable Lan Marcano Consulting Unavailable Silvia Meehan Consulting UnavailTaj Mercer Consulting Unavailable Onur Medina Consulting Unavailable Lenny Rodriguez Consulting Unavailable Tamika Mann Consulting Unavailable Houston Rendon Consulting Unavailable Vita Cox Consulting Unavailable Mulugeta Cooper Consulting Unavailable Kishore Patrick Consulting Unavailable Estuardo, Lg Consulting Unavailable Dhesi, Clarence Consulting Unavailable Vincent Santamaria Consulting Unavailable Ismael Wood Consulting Unavailable Len Dial Consulting Unavailable Yohan Tovar Consulting Unavailable Ti Shoemaker Consulting Unavailable Lorraine Gupta Consulting Unavailable Joao Ramirez Consulting Unavailable Oswald Bonds Consulting Unavailable Antonio Perdomo Consulting Unavailable Almas Massey Referring Unavailable Almas Massey Attending Unavailable Suman, Chalon Primary Care Unavailable LICEANICKIE Attending Unavailable Suman, Chalon Primary Care Unavailable LICEANICKIE Referring Unavailable Suman, Chalon Primary Care Unavailable Ramone Adams Attending Unavailable Princess Coronado Referring Unavailable Fitz Velazquez Attending Unavailable Suman, Chalon Primary Care Unavailable Fitz Ryan Attending Unavailable Fitz Ryan Consulting Unavailable Oswald Bonds Consulting Unavailable Aparna Mabry Consulting Unavailable Suman, Chalon Primary Care Unavailable Bandar Linares Attending Unavailabl e Suman, Chalon Referring Unavailable Joao Ramirez Attending Unavailable Suman, Chalon Primary Care Unavailable Aparna Mabry Attending Unavailable Aparna Mabry Attending Unavailable Suman, Chalon Referring Unavailable Suman, Chalon Primary Care Unavailable Onofre Claros Attending Unavailable Suman, Chalon Referring Unavailable Librado Clarosr Attending Unavailable Suman, Chalon Primary Care Unavailable Suman, Chalon Referring Unavailable Suman, Chalon Primary Care Unavailable Onofre Claros Attending Unavailable Fitz Ryan Referring Unavailable Ramone Adams Attending Unavailable Milton Muñoz Attending Unavailable Mark Mcfarland Attending Unavailable White, Ana L Referring Unavailable White, Ana L Attending Unavailable White, Ana L Admitting Unavailable Suman, Chalon Primary Care Unavailable White, Ana L Consulting Unavailable Allergies Allergy Classification Reported Allergen(s) Allergy Type Date of Onset Reaction(s) Facility (20 sources) Seasonal allergy; Translations: [SEASONAL ALLERGIES] Propensity to adverse reactions (disorder) 5 Other: See Comments [facility] Other [place] [facility] (6 sources) Grass pollen; Translations: [GRASS POLLEN] Propensity to adverse reactions to drug 5 Other (See Comments) [facility] Medications Current Medications Medication Drug Class(es) Dates Sig (Normalized) Sig (Original) apixaban 2.5 mg oral tablet (6 sources) Factor Xa Inhibitor Start: 07-15-2025 End: 08-18-2025 take 1 tablet by mouth twice daily apixaban (ELIQUIS) 2.5 mg Tab Take 1 (one) tablet (2.5 mg total) by mouth 2 (two) times a day . 60 tablet 07/19/2025 Active aspirin 81 mg chewable tablet (20 sources) [...] tablet (20 sources) HMG-CoA Reductase Inhibitor Start: 7 End: take 1 tablet by mouth once daily atorvastatin (LIPITOR) 10 MG tablet Take 1 (one) tablet (10 mg total) by mouth daily . 05/11/2017 Active Atorvastatin Berhane cium 10 MG Oral Tablet [...] the event of a Fluress shortage, administer [place]-Fluor 1 drop into both eyes as directed [...] ophthalmic solution (20 sources) alpha-Adrenergic Agonist Start: 05-05-2023 End: 09-27-2023 take 1 drop(s) into the eye(s) twice daily brimonidine (ALPHAGAN) 0.2 % ophthalmic solution Use 1 Drop in both eyes two times a day. 15 mL 3 09/06/2024 Active Start: 01-27-2022 End: 05-05-2023 take 1 drop(s) into the eye(s) twice daily brimonidine (ALPHAGAN) 0.2 % ophthalmic solution Use 1 Drop in both eyes twice daily. 15 mL 3 05/05/2023 Active Comment on above: Use 1 Drop in both e yes twice daily. Use 1 Drop in the le ft eye twice daily. carvedilol 6.25 mg oral tablet (20 sources) alpha-Adrenergic Ralph, beta-Adrenergic Ralph Start: 10-21-2024 End: 12-01-2024 take 1 tablet by mouth twice daily at mealtime carvedilol (COREG) 6.25 mg tablet Take 1 tablet by mouth two times a day with meals. 03/23/2025 Active Drug or medicament (substance) (3 sources) Start: 07-13-2025 End: 08-12-2025 take 30 mL by mouth every four hours as needed Start: 07-07-2025 End: 07-20-2025 take 30 mL by mouth every four hours as needed ergocalciferol 1.25 mg oral capsule (5 sources) Provitamin D2 Compound take 1 capsule by mouth every week ergocalciferol (ERGOCALCIFEROL) 1,250 mcg (50,000 unit) capsule Take 1 (one) capsule (50,000 Units total) by mouth once a week On Wednesday . Active fluorometholone 1 mg/ml ophthalmic suspension (12 sources) Corticosteroid Start: 023 take 1 drop(s) into the eye(s) three times daily fluorometholone (FML) 0.1 % ophthalmic suspension Administer 1 drop into affected eye(s) 3 times a day. 08/25/2023 Active Start: 08-18-2023 End: 10-01-2023 fluorometholone [...] le ft eye three times a day. glipiZIDE er 2.5 mg 24 hr extended release oral tablet (20 sources) Sulfonylurea Start: 08-31-2022 glipiZIDE (GLUCOTROL XL) 2.5 mg 24 hr tablet 08/31/2022 Active Start: 08-31-2022 End: 12-01-2024 take 1 tablet by mouth once daily Glipizide 2.5 mg tablet extended release 24hr Discontinued 2.5 mg PO DAILY August 31, 2022 12:00am December 01, 2024 11:34am diabetes hydrALAZINE hydrochloride 10 mg oral tablet (8 sources) Arteriolar Vasodilator Start: 07-03-2025 End: 08-18-2025 take 1 tablet by mouth three times daily hydrALAZINE (APRESOLINE) 10 MG tablet Take 1 (one) tablet (10 mg total) by mouth 3 (three) times a day Hold for SBP less than 110 . 90 tablet 07/19/2025 Active Start: 05-25-2025 End: 07-19-2025 take 1 tablet by mouth three times daily Hydralazine 25 mg tablet Active 25 mg PO THREE TIMES A DAY 270 3 May 25, 2025 12:00am ipratropium bromide 0.042 mg/actuat metered dose nasal spray (5 sources) Anticholinergic take 2 spray(s) nasal route three times daily as needed for rhinitis ipratropium (ATROVENT) 42 mcg (0.06 %) nasal spray Instill 2 (two) sprays into each nostril 3 (three) times a day as needed for rhinitis . Active isosorbide dinitrate 20 mg oral tablet (3 sources) Nitrate Vasodilator Start: 05-25-2025 End: 07-20-2025 take 1 tablet by mouth three times [...] the ri ght eye four times daily. lactobacillus rhamnosus gg [id number] unt oral capsule (1 source) take 1 capsule by mouth once daily Lactobacillus rhamnosus GG (CULTURELLE) 10 billion cell capsule Take 1 (one) capsule by mouth daily . Active lidocaine 0.04 mg/mg medicated patch (11 sources) Antiarrhythmic, Amide Local Anesthetic Start: 07-21-20 End: 08-20-20 lidocaine 4 % patch Place 2 (two) patches on the skin daily Apply to lower back Start: 07/21/25. 60 patch 07/21/2025 08/20/2025 Active Start: 07-03-2025 End: 08-20-2025 apply 1 dose transdermal route once daily lidocaine 4 % patch Place 1 (one) patch on the skin daily Apply to right hip Start: 07/21/25. 30 patch 07/21/2025 08/20/2025 Active Start: 07-03-2025 End: 07-03-2025 magic mouthwash susp equal parts viscous lidocaine 2%, diphenhydramine 12.5mg/5mL, maalox [id number]/5mL (2 sources) Start: 07-13-2025 End: 08-12-2025 take 30 mL by mouth every four hours as needed magic mouthwash susp equal parts viscous lidocaine 2%, diphenhydramine 12.5mg/5mL, maalox [id number]/5mL Swish and spit 30 mL every 4 (four) hours as needed (for mouth irritaion) . 100 mL 07/13/2025 08/12/2025 Active melatonin 5 mg oral tablet (7 sources) Start: 07-01-2025 End: 08-18-2025 take 1 tablet by mouth once daily melatonin 5 mg Tab Take 1 (one) tablet (5 mg total) by mouth nightly . 30 tablet 07/19/2025 Active meloxicam 15 mg oral tablet (12 sources) Nonsteroidal Anti-inflammator y Drug Start: 11-20-2022 End: 08-26-2023 take 1 tablet by mouth once daily meloxicam (Mobic) 15 mg tablet Take 1 tablet (15 mg) by mouth once daily. 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 30 tablet 07/19/2025 07/29/2025 Active mirtazapine 7.5 mg oral tablet (6 sources) Start: 07-04-2025 End: 08-18-2025 take 1 tablet by mouth once daily mirtazapine (REMERON) 7.5 MG tablet Take 1 (one) tablet (7.5 mg total) by mouth nightly . 30 tablet 07/19/2025 Active multivitamin (multivitamin) per tablet (3 sources) take 1 tablet by mouth once daily multivitamin (multivitamin) per tablet Take 1 (one) tablet by mouth daily . Active take 1 tablet by mouth once flynn y multivitamin (multivitamin) per tablet Take 1 tablet by mouth daily. Active multivitamin tablet (3 sources) take 1 tablet by diamond th once daily multivitamin tablet Take 1 tablet by mouth once daily. Active take 1 tablet by mouth once flynn y multivitamin tablet Take 1 tablet by mouth once daily. 0 Active mupirocin 0.02 mg/mg topical ointment (1 source) RNA Synthetase Inhibitor Antibacterial Start: 11-13-2022 End: 08-26-2023 mupirocin (Bactroban) 2 % ointment APPLY OINTMENT TO QTIP AND APPLY INSIDE EACH NOSTRIL TWICE DAILY UNTIL DAY OF SURGERY 0 11/13/2022 08/26/2023 Discontinued (Therapy completed) oxyCODONE hydrochloride 5 mg oral tablet (17 sources) Opioid Agonist Start: 07-16-2025 End: 07-23-2025 oxyCODONE (ROXICODONE) 5 MG immediate release tablet Indications: Pain in hip 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, initial encounter (HCC) Take 1 (one) tablet (5 mg total) by mouth every 6 (six) hours as needed (Days supply per fill: 3) . 12 tablet 07/20/2025 07/23/2025 Active Start: 11-20-2022 End: 10-17-2024 take 5-10 mg by mouth every four hours as needed for pain Oxycodone 5 mg Tablet Discontinued 5 - 10 mg PO EVERY 4 HOURS NEEDED as needed for Pain Score 4-10 42 7 0 November 20, 2022 October 17, 2024 11:52pm Osteoarthritis of right hip Unilateral primary osteoarthritis, right hip take 1 tablet by diamond every eight hours as needed for pain oxyCODONE (ROXICODONE) 5 MG immediate release tablet Take 1 (one) tablet (5 mg total) by mouth every 8 (eight) hours as needed for pain . Active oxygen (O2) therapy (1 source) Start: 07-28-2025 1 Dose, inhala tion, Continuous - O2/gases, oxygen, Starting on 07/28/25 at 0320, Device: Nasal Cannula, Rate in liters per minute: 2 Lpm pantoprazole 20 mg delayed release oral tablet (1 source) Proton Pump Inhibitor take 1 tablet by mouth once daily pantoprazole (PROTONIX) 20 MG tablet Take 1 (one) tablet (20 mg total) by mouth daily . Active phenylephrine hydrochloride 25 mg/ml ophthalmic solution (7 sources) alpha-1 Adrenergic Agonist Start: 02-15-2025 End: 02-15-2025 PHENYLephrine 2.5 % 1 drop (AK-DILATE, DIDIER-SYNEPHRINE) [...] 2.5 % 1 Drop ( AK-DILATE, DIDIER-SYNEPHRINE) prednisoLONE acetate 10 mg/ml ophthalmic suspension (6 [...] Active Comment on above: Use in eyes. QUEtiapine 25 mg oral tablet (7 sources) Atypical Antipsychotic Start: 07-01-20 End: 09-28-20 25 take 1 tablet by mouth once daily QUEtiapine (SEROQUEL) 25 MG tablet Take 1 (one) tablet (25 mg total) by mouth nightly . 30 tablet 07/13/2025 Active silver sulfADIAZINE 10 mg/ml topical cream (1 source) Sulfonamide Antibacterial Start: 12-04-19 End: 08-26-20 silver sulfADIAZINE (Silvadene) 1 % cream APPLY TO WOUND ONCE DAILY 0 12/04/2022 08/26/2023 Discontinued (Therapy completed) tropicamide 10 mg/ml ophthalmic solution (8 sources) Anticholinergic Start: 02-16-20 End: 02-16-20 tropicamide 1 % 1 drop (MYDRIACYL) Start: [...] tropicamide 1 % 1 Drop (MYDR IACYL) vancomycin/0.9 % sod chlorid e (vancomycin in 0.9 % sodium chl) 750 mg/150 mL Soln (1 source) vancomycin/0.9 % sod chloride (vancomycin in 0.9 % sodium chl) 750 mg/150 mL Soln Infuse 750 mg into a venous catheter daily On , , and Wed at Dialysis . Active (2 sources) Completed/Discontinued Medications Medication Drug Class(es) Dates Sig (Normalized) Sig (Original) acetaminophen 325 mg oral tablet (20 sources) Start: 07-02-2025 End: 07-20-2025 take 650 mg by mouth every six hours as needed for headache and pain Start: 11-20-2022 End: 10-17-2024 take 2 tablets [...] take 2 tablets by mo uth every four hours as needed for pain acetaminophen (TYLENOL) 325 MG tablet Take 2 (two) tablets (650 mg total) by mouth every 4 (four) hours as needed for pain . Active Comment on above: Take 650 mg by mouth every 6 hours as needed. 20 ml albumin human, group home 250 mg/ml injection (1 source) Human Serum Albumin Start: 06-30-20 End: 07-01-20 amLODIPine 10 mg oral tablet (20 sources) Dihydropyridine Calcium Channel Ralph Start: 05-11-20 End: 07-20-20 take 1 tablet by mouth once daily Amlodipine 10 mg tablet Discontinued 10 mg PO DAILY August 31, 2022 12:00am October 21, 2024 1:09pm amLODIPine Besyl ate 10 MG Oral Tablet Quantity: 0 Refills: 0 Ordered: 02-Oct-2019 DO Active Comment on above: Take 10 mg by mouth once daily. amoxicillin 250 mg / clavulanate 125 mg oral tablet (20 sources) Penicillin-class Antibacterial Start: 03-22-2025 End: 05-16-2025 Amoxicillin-Pot Clavulanate 250-125 mg tablet Discontinued 1 {tbl} PO TWICE A DAY 78 39 0 March 22, 2025 12:00am May 16, 2025 11:34am Start: 10-17-2024 End: 11-02-2024 Amoxicillin-Pot Clavulanate 875-125 mg tablet Discontinued 1 {tbl} PO TWICE A DAY 6 3 0 October 21, 2024 1:00am November 02, 2024 12:16pm benzocaine 200 mg/ml mucosal spray (1 source) Standardized Chemical Allergen Start: 06-29-2025 End: 06-29-2025 benzocaine 140 mg/ml / butamben 20 mg/ml / tetracaine 20 mg/ml mucosal spray (1 source) [facility] Local Anesthetic, Standardized Chemical Allergen Start: 07-28-2025 End: 07-28-2025 apply 2 spray(s) topically once 2 spray, Topical, Once, On 07/28/25 at 0220, For 1 dose, Apply to: nose. bevacizumab (Oralia's) 1.25 mg intravitreal syringe (AVASTIN) [...] mg, ONCE, 1 dose, Start ing on Janenth 11/30/24 at 1026, Until Janneth 11/30/24 at [...] at 1603 Bexagliflozin (Brenzavvy) 20 mg tablet (8 sources) Start: 12-15-2024 End: 03-12-2025 take 1 [...] 1:13pm Start: 12-15-2024 take 1 tablet by diamond once daily Bexagliflozin (Brenzavvy) 20 mg tablet Active 20 mg PO daily December 15, 2024 1:00am bisacodyl 10 mg rectal suppo sitory (1 source) Stimulant Laxative Start: 06-28-2025 End: 07-20-2025 calcium chloride 0.0014 meq/ ml / potassium chloride 0.004 meq/ml / sodium chloride 0.103 meq/ml / sodium lactate 0.028 meq/ml injectable solution (3 sources) Start: 07-02-2025 End: 07-02-2025 Start: 09-30-2023 lactated Ringe r's infusion Start: 08-26-2023 End: 08-26-2023 lactated Ringer's infusion 10 ml calcium gluconate 100 mg/ml injection (3 sources) Start: 07-02-2025 End: 07-02-2025 Start: 07-01-2025 End: 07-01-2025 Start: 06-30-2025 End: 06-30-2025 dapagliflozin 10 mg oral tablet (11 sources) Sodium-Glucose Cotransporter 2 Inhibitor Start: 03-12-2025 End: 03-23-2025 take 1 tablet by mouth once daily Dapagliflozin Propanediol (Farxiga) 10 mg tablet Discontinued 10 mg PO daily 30 3 March 12, 2025 12:00am March 23, 2025 11:21am DAPTOmycin 500 mg injection (2 sources) Lipopeptide Antibacterial Start: 07-04-2025 End: 07-12-2025 Start: 07-02-2025 End: 07-03-2025 100 ml dexmedetomidine 0.004 mg/ml injection (1 source) Central alpha-2 Adrenergic Agonist Start: 07-02-2025 End: 07-03-2025 250 ml DOBUTamine 2 mg/ml injection (2 sources) beta-Adrenergic Agonist Start: 06-28-2025 End: 06-30-2025 docusate sodium 50 mg / sennosides, group home 8.6 mg oral tablet (14 sources) Start: 07-10-2025 End: 07-20-2025 Start: 07-01-2025 End: 07-09-2025 Start: 06-28-2025 End: 07-01-2025 Start: 11-20-2022 End: 10-17-2024 Sennosides-Docusate Sodium ( Stool Softener-Stimulant Laxat) 8.6-50 mg Tablet Discontinued 2 {tbl} PO TWICE A DAY 28 7 0 November 20, 2022 1:00am October 17, 2024 11:53pm doxycycline monohydrate 100 mg oral capsule (6 sources) Tetracycline-class Drug Start: 03-22-2025 End: 05-16-2025 take 1 capsule by mouth twice daily Doxycycline Monohydrate 100 mg Capsule Discontinued 100 mg PO TWICE A DAY 78 39 0 March 22, 2025 12:00am May 16, 2025 11:34am 1 ml epoetin sonia-epbx 3000 unt/ml injection (3 sources) Erythropoiesis-stimulati ng Agent Start: 07-20-2025 End: 07-20-2025 Start: 07-18-2025 End: 07-18-2025 Start: 07-11-2025 End: 07-11-2025 famotidine 20 mg oral tablet (14 sources) Histamine-2 Receptor Antagonist Start: 07-01-2025 End: 07-20-2025 Start: 11-20-2022 End: 10-17-2024 take 1 tablet by mouth once daily Famotidine 20 mg Tablet Discontinued 20 mg PO DAILY 30 30 0 November 20, 2022 1:00am October 17, 2024 11:53pm 1 ml fentaNYL 0.05 mg/ml inj ection (1 source) Opioid Agonist Start: 06-29-2025 End: 07-01-2025 furosemide 40 mg oral tablet (20 sources) Loop Diuretic Start: 03-12-2025 End: 07-20-2025 Start: 12-01-2024 End: 03-12-2025 take 1 tablet [...] 21, 2024 1:00am November 02, 2024 12:16pm 250 ml heparin sodium, porci ne 100 unt/ml injection (1 source) Unfractionated Heparin, Anti-coagulant Start: 06-28-2025 End: 07-16-2025 0.5 ml HYDROmorphone hydrochloride 1 mg/ml prefilled syringe (2 sources) Opioid Agonist Start: 07-16-2025 End: 07-16-2025 Start: 07-01-2025 End: 07-02-2025 3 ml insulin glargine 100 unt/ml pen injector (5 sources) Insulin Analog Start: 04-04-2025 End: 05-16-2025 Insulin Glargine (Lantus Solostar U-100 Insulin) 100 unit/mL (3 mL) insulin pen Discontinued 10 U SC EVERY EVENING April 04, 2025 12:00am May 16, 2025 11:34am insulin lispro 100 unt/ml injectable solution (2 sources) Insulin Analog Start: 06-29-2025 End: 07-20-2025 levothyroxine sodium 0.112 mg oral tablet (20 sources) l-Thyroxine Start: 06-29-2025 End: 07-20-2025 Start: 05-11-2017 End: 06-28-2025 Levothyroxine (Synthroid) 10 0 mcg tablet Active 112 ug PO DAILY April 04, 2025 11:39am thyroid Start: 10-09-2014 End: 04-04-2025 take 1 tablet by mouth once daily Levothyroxine (Synthroid) 100 mcg tablet Discontinued 100 ug PO DAILY August 31, 2022 12:00am April 04, 2025 11:39am thyroid Levothyroxine So dium 100 MCG Oral Tablet Quantity: 0 Refills: 0 Ordered: 02-Oct-2019 DO Active Comment on above: Take 100 mcg by mout h once daily. lisinopril 10 mg oral tablet (20 sources) Angiotensin Converting Enzyme Inhibitor Start: End: take 1 tablet by mouth once daily Lisinopril 10 mg tablet Discontinued 10 mg PO DAILY 30 30 2 October 21, 2024 1:00am December 01, 2024 4:58pm On Hold: Resume on 12/11/24. Hold until you see cardiology in the office for follow-up. take 1 tablet by mouth once flynn y lisinopril 40 mg tablet Take 1 tablet (40 mg) by mouth once daily. Active take 10 mg by mouth once daily l isinopril (ZESTRIL) 40 mg tablet Take 10 mg by mouth once daily. Active Comment on above: Take 40 mg [...] 500 mg 24 hr tablet 04/04/2022 Active metFORMIN hydrochloride 500 mg / pioglitazone 15 mg oral tablet (20 sources) Biguanide, Peroxisome Proliferator Receptor alpha Agonist, Peroxisome Proliferator Receptor gamma Agonist, Thiazolidinedione Start: 10-17-2024 End: 03-12-2025 Pioglitazone-Metformin 15-500 mg tablet Discontinued 1 {tbl} PO TWICE A DAY October 17, 2024 1:00am March 12, 2025 1:10pm diabetes Start: 05-11-2017 pioglitazone-m etformin (ACTOPlus Met) 15-500 mg tablet Take by mouth. 05/11/2017 Active Start: 05-11-2017 End: 06-28-2025 Start: 10-09-2014 End: 05-05-2022 take 1 tablet by mouth twice daily at mealtime Pioglitazone-metFORMIN 15-500 mg per tablet Take 1 tablet by mouth twice daily with meals. 0 10/09/2014 05/05/2022 Discontinued (Duplicate Entry) Comment on above: Take 1 tablet by diamond th twice daily with meals. 5 ml midazolam 1 mg/ml injection (3 sources) Benzodiazepine Start: 06-29-2025 End: 06-29-2025 Start: 09-30-2023 End: 09-30-2023 midazolam (Versed) injection 1 mg Start: 08-26-2023 End: 08-26-2023 midazolam (Versed) injection 1 mg 1 ml morphine sulfate 4 mg/ml prefilled syringe (2 sources) Opioid Agonist Start: 07-27-2025 End: 07-28-2025 4 mg, intravenous, Once, On 07/28/25 at 0140, For 1 dose 2 ml ondansetron 2 mg/ml injection (5 sources) Serotonin-3 Receptor Antagonist Start: 07-28-2025 End: 07-28-2025 4 mg, intravenous, Once, On 07/28/25 at 0235, For 1 dose, When administering via IV Push, administer over 3-5 minutes. Start: 07-27-2025 End: 07-27-2025 4 mg, intravenous, Once, On 07/27/25 at 2330, For 1 dose, When administering via IV Push, administer over 3-5 minutes. Start: 09-30-2023 End: 09-30-2023 ondansetron (Zofran) injecti on 4 mg Start: 08-26-2023 End: 08-26-2023 ondansetron (Zofran) injecti on 4 mg take 1 tablet by diamond th every eight hours as needed for nausea ondansetron (ZOFRAN) 4 MG tablet Take 1 (one) tablet (4 mg total) by mouth every 8 (eight) hours as needed for nausea . Active Phenylephrine / Tropicamide (2 sources) Anticholinergic, alpha-1 Adrenergic Agonist Start: 09-30-2023 End: 09-30-2023 phenylephrine-tropicamide 10 %-1 % ophthalmic solution 1 drop Start: 08-26-2023 End: 08-26-2023 phenylephrine-tropicamide 10 %-1 % ophthalmic solution 1 drop pioglitazone 30 mg oral tablet (20 sources) Peroxisome Proliferator Receptor alpha Agonist, Peroxisome Proliferator Receptor gamma Agonist, Thiazolidinedione Start: 04-04-2022 End: 10-17-2024 take 1 tablet by mouth once daily Pioglitazone 30 mg tablet Discontinued 30 mg PO DAILY August 31, 2022 12:00am October 17, 2024 11:53pm polyvinyl alcohol 0.014 ml/ml / povidone 6 mg/ml ophthalmic solution (2 sources) Start: 09-30-2023 End: 09-30-2023 lubricating eye drops ophthalmic solution 1 drop Start: 08-26-2023 End: 08-26-2023 lubricating eye drops ophtha lmic solution 1 drop microencapsulated potassium chloride 20 meq extended release oral tablet (2 sources) Start: 07-07-2025 End: 07-07-2025 Start: 07-03-2025 End: 07-03-2025 potassium phosphate 155 mg / sodium phosphate, dibasic 852 mg / sodium phosphate, monobasic 130 mg oral tablet (1 source) Start: 07-07-2025 End: 07-08-2025 povidone-iodine 50 mg/ml ophthalmic solution (2 sources) Antiseptic Start: 09-30-2023 End: 09-30-2023 povidone-iodine 5 % ophthalmic solution Start: 08-26-2023 End: 08-26-2023 povidone-iodine 5 % ophthalm ic solution 1 Application 10 ml propofol 10 mg/ml injection (1 source) General Anesthetic Start: 06-28-2025 End: 07-02-2025 quinapril 40 mg oral tablet (20 sources) Angiotensin Converting Enzyme Inhibitor Start: 08-31-2022 End: 10-21-2024 take 1 tablet by mouth once daily Quinapril 40 mg tablet Discontinued 40 mg PO DAILY August 31, 2022 12:00am October 21, 2024 1:13pm Start: 05-11-2017 End: 06-28-2025 Quinapril HCl - 40 MG Oral Tablet Quantity: 0 Refills: 0 Ordered: 02-Oct-2019 DO Active Comment on above: Take 2 tablets by [facility] once daily. 1000 ml sodium chloride 9 mg /ml injection (13 sources) Start: 07-20-2025 End: 07-20-2025 Start: 07-20-2025 End: 07-20-2025 Start: 06-30-2025 End: 07-20-2025 Start: 06-30-2025 End: 07-20-2025 Start: 06-28-2025 End: 07-20-2025 tetracaine hydrochloride 5 mg/ml ophthalmic solution (2 sources) [facility] Local Anesthetic Start: 09-30-2023 End: 09-30-2023 tetracaine (Altacaine) 0.5 % ophthalmic solution 1 drop Start: 08-26-2023 End: 08-26-2023 tetracaine (Altacaine) 0.5 % ophthalmic solution 1 drop 150 ml vancomycin 5 mg/ml in jection (4 sources) Glycopeptide Antibacterial Start: 07-20-2025 End: 07-20-2025 Start: 07-18-2025 End: 07-18-2025 Start: 07-16-2025 End: 07-16-2025 Start: 07-13-2025 End: 07-13-2025 (2 sources) Start: 07-12-2025 End: 07-12-2025 Start: 07-12-2025 End: 07-20-2025 (11 sources) Start: 07-05-2025 End: 07-20-2025 [Order 1 Start] Name: insuli n lispro (AdmeLOG,HumaLOG) injection 0-15 Units Signed Summary: 0-15 Units, Subcutaneous, At bedtime, First dose on Janneth 07/05/25 at 2100, IF initial POC glucose is greater than 250, administer insulin as directed and re-check POC glucose no sooner than 2 hours after administration. THEN notify provider if POC glucose is still greater than 250., For nightly BG greater than 250, give: Half ( ) Corrective Scale, Nightly Prandial Snack Dosing Method: NO Snack Coverage - Corrective Scale ONLY, Nightly Insulin Dose Corrective Scale: FOLLOW DAYTIME Prandial Corrective Scale, Corrective Insulin Regimen (select desired scale to cover BG result): Insulin SENSITIVE Scale, (REMINDER: Nightly Insulin Dose Corrective Scale will be automatically calculated to be of the daytime scale), Dose Reduction Threshold (at meals) for POC Blood Glucose less than or equal to: 80, For Downtime Calculator, use: Insulin SC NIGHTtime [Order 1 End] [Order 2 Start] Name: Notify physician Signed Summary: Routine, Until discontinued, Starting on Wed07/05/25 at 0942, Until Specified, Other: IF HS POC Glucose RE-CHECK Greater than 250, If initial HS POC glucose is greater than 250, administer insulin as directed and re-check POC glucose no sooner than 2 hours after administration. IF RE-CHECK POC glucose is still greater than 250, notify provider. [Order 2 End] Start: 07-03-2025 End: 07-12-2025 take 200 mg intravenously every eight hours Start: 07-02-2025 End: 07-02-2025 Start: 07-02-2025 End: 07-03-2025 take 400 mg intravenously every eight hours Start: 06-29-2025 End: 07-01-2025 take 20 mg intravenously every twenty-four hours Start: 06-29-2025 End: 07-20-2025 [Order 1 Start] Name: Insert peripheral IV Signed Summary: ELI, Once, On Wed06/29/25 at 1416, For 1 occurrence [Order 1 End] [Order 2 Start] Name: Saline lock IV Signed Summary: ELI, Once, On Wed06/29/25 at 1416, For 1 occurrence [Order 2 End] [Order 3 Start] Name: sodium chloride (PF) (NS) flush 5 mL Signed Summary: 5 mL, Intravenous, As needed, line care, Starting on Wed06/29/25 at 1415 [Order 3 End] [Order 4 Start] Name: sodium chloride 0.9% (NS) Signed Summary: 0-150 mL/hr, Intravenous, As needed, To flush line after IV infusions when no maintenance IV ordered or a compatibility issue. Infuse 20ml at the same rate as the secondary infusion, Starting on Wed06/29/25 at 1415, Run as Primary IV. NOT intended for KVO. [Order 4 End] Start: 06-29-2025 End: 07-20-2025 [Order 1 Start] Name: naloxo ne (NARCAN) injection 0.1 mg Signed Summary: 0.1 mg, Intravenous, As needed, opioid reversal, For respiratory rate less than or equal to 8 per minute., Starting on Wed06/29/25 at 1024, Mix nalOXone (NARCAN) 0.4 mg (1mL) with 9 mL of Normal Saline to total 10 mL. Administer 0.1 mg (2.5mL) IV Push every 2 minutes until respiratory rate is 10 or greater. [Order 1 End] [Order 2 Start] Name: Notify physician Signed Summary: STAT, Until discontinued, Starting on Wed06/29/25 at 1025, Until Specified, Respiratory rate less than: 8, For respiratory rate less than or equal to 8, notify physician and/or appropriate staff for additional orders. [Order 2 End] [Order 3 Start] Name: naloxone (NARCAN) injection 0.4 mg Signed Summary: 0.4 mg, Intravenous, As needed, opioid reversal, patient is pulseless, breathless, and unresponsive, Starting on Wed06/29/25 at 1024, Call a code first, then administer naloxone dose undiluted IV Push over 30 seconds. [Order 3 End] Start: 06-28-2025 End: 06-29-2025 Start: 06-28-2025 End: 06-29-2025 Start: 06-28-2025 End: 06-28-2025 Start: 06-28-2025 End: 07-20-2025 [Order 1 Start] Name: Saline lock IV Signed Summary: Routine, Continuous, Starting on Wed06/28/25 at 1826, Until Specified [Order 1 End] [Order 2 Start] Name: sodium chloride (PF) (NS) flush 5 mL Signed Summary: 5 mL, Intravenous, As needed, line care, Starting on Wed06/28/25 at 1825 [Order 2 End] [Order 3 Start] Name: sodium chloride (PF) (NS) flush 5 mL Signed Summary: 5 mL, Intravenous, Every 8 hours scheduled, First dose on Wed06/28/25 at 2200, Saline lock [Order 3 End] [Order 4 Start] Name: sodium chloride 0.9% (NS) Signed Summary: 0-150 mL/hr, Intravenous, As needed, To flush line after IV infusions when no maintenance IV ordered or a compatibility issue. Infuse 20ml at the same rate as the secondary infusion, Starting on Janneth 06/28/25 at 1825, Run as Primary IV. NOT intended for KVO. [Order 4 End] (3 sources) Start: 07-04-2025 End: 07-04-2025 Start: 07-04-2025 End: 07-04-2025 Start: 07-04-2025 End: 07-04-2025 (1 source) Start: 07-02-2025 End: 07-02-2025 (1 source) Start: 06-30-2025 End: 06-30-2025 (1 source) Start: 06-28-2025 End: 07-16-2025 Problems Active Problems Problem Classification Problem Date Documented Date Episodic/Chronic Acute and unspecified renal failure (20 sources) Acute renal failure syndrome; Translations: [Acute kidney failure, unspecified] Onset: 07-27-2025 10-29-2024 Episodic Acute cerebrovascular disease (20 sources) Cerebral infarction due to unspecified occlusion or stenosis of left posterior cerebral artery; Translations: [Cerebral infarction, unspecified] Onset: 05-20-2018 06-02-2018 Chronic Bacterial infection; unspecified site (2 sources) Bacteremia; Translations: [Methicillin resistant Staphylococcus aureus infection as the cause of diseases classified elsewhere] Onset: 07-27-2025 Episodic Cancer of uterus (20 sources) History of malignant neoplasm of endometrium; Translations: [Personal history of malignant neoplasm of other parts of uterus] Episodic Cardiac dysrhythmias (3 sources) Paroxysmal atrial fibrillation; Translations: [Paroxysmal atrial fibrillation] Onset: 07-27-2025 06-25-2025 Chronic Chronic kidney disease (20 sources) Chronic kidney disease stage 3; Translations: [Stage 3 chronic kidney disease] Onset: 04-06-2025 12-01-2024 Chronic Chronic kidney disease (4 sources) Chronic kidney disease; Translations: [Chronic kidney disease, stage 3a] Onset: 03-13-2025 Chronic ulcer of skin (13 sources) Non-pressure chronic ulcer of other part of right foot with necrosis of bone; Translations: [Non-pressure chronic ulcer of other part of right foot with necrosis of bone] Onset: 04-06-2025 03-16-2025 Chronic Complication of device; implant or graft (4 sources) Pain due to internal orthopedic prosthetic devices, implants and grafts, initial encounter; Translations: [Infection and inflammatory reaction due to other cardiac and vascular devices, implants and grafts, initial encounter] Onset: 07-12-2025 Episodic Congestive heart failure; nonhypertensive (20 sources) Congestive heart failure; Translations: [Heart failure, unspecified] Onset: 03-15-2025 11-10-2024 Chronic Diabetes mellitus with complications (20 sources) Type 2 diabetes mellitus; Translations: [Type 2 diabetes mellitus with mild nonproliferative diabetic retinopathy without macular edema, right eye] Onset: 01-09-2016 05-07-2018 Chronic Diabetes mellitus without complication (20 sources) Diabetes mellitus type 2 without retinopathy; Translations: [Type 2 diabetes mellitus without complications] Onset: 11-02-2024 Chronic Comment on above: ON MED Disorders of lipid metabolism (20 sources) Hypercholesterolemia; Translations: [Pure hypercholesterolemia, unspecified] Onset: 09-27-2023 09-27-2023 Chronic Comment on above: ON MED E Codes: Fall (3 sources) Fall; Translations: [Unspecified fall, initial encounter] Onset: 07-27-2025 06-25-2025 Episodic Essential hypertension (20 sources) Essential (primary) hypertension; Translations: [Essential hypertension] Onset: 05-07-2018 05-07-2018 Chronic Comment on above: CONTROLLED WITH MEDS Glaucoma (20 sources) Ocular hypertension; Translations: [Ocular hypertension, left eye] Onset: 08-04-2023 Chronic Heart valve disorders (20 sources) Aortic valve stenosis; Translations: [Nonrheumatic aortic (valve) stenosis] Onset: 07-27-2025 12-01-2024 Chronic Hypertension with complications and secondary hypertension (1 source) Hypertensive heart disease with heart failure; Translations: [Hypertensive heart disease with heart failure] Onset: 03-12-2025 Chronic Infective arthritis and osteomyelitis (except that caused by tuberculosis or sexually transmitted disease) (20 sources) Osteomyelitis of forefoot; Translations: [Osteomyelitis, unspecified] Onset: 03-23-2025 03-17-2025 Chronic Intestinal obstruction without hernia (6 sources) Complete obstruction of lumen of small intestine; Translations: [Complete intestinal obstruction, unspecified as to cause] Onset: 07-27-2025 07-28-2025 Episodic Nutritional deficiencies (1 source) Vitamin D deficiency, unspecified; Translations: [Vitamin D deficiency, unspecified] Onset: 12-04-2024 Chronic Osteoarthritis (15 sources) Osteoarthritis of right hip joint; Translations: [Unilateral primary osteoarthritis, right hip] Chronic Other and ill-defined heart disease (12 sources) Left ventricular cardiac dysfunction; Translations: [Heart disease, unspecified] 10-19-2024 Chronic Other and ill-defined heart disease (2 sources) Heart disease, unspecified; Translations: [Heart disease, unspecified] Onset: 10-27-2024 Chronic Other circulatory disease (20 sources) H/O: hypertension; Translations: [Personal history of other diseases of circulatory system] Episodic Other circulatory disease (12 sources) Ecchymosis; Translations: [Hemorrhage, not elsewhere classified] 03-22-2025 Episodic Other connective tissue disease (19 sources) History of repair of hip joint; Translations: [Hip joint replacement] Chronic Other connective tissue disease (1 source) Presence of right artificial hip joint; Translations: [Presence of right artificial hip joint] Onset: 02-15-2023 Chronic Other connective tissue disease (2 sources) Presence of unspecified artificial hip joint; Translations: [Presence of unspecified artificial hip joint] Onset: 07-12-2025 Chronic Other connective tissue disease (1 source) Soft tissue disorder, unspecified; Translations: [Soft tissue disorder, unspecified] Onset: 07-02-2025 Episodic Other lower respiratory disease (9 sources) Dyspnea; Translations: [Dyspnea, unspecified] 11-10-2024 Episodic Other lower respiratory disease (9 sources) Hypoxia; Translations: [Hypoxemia] 11-10-2024 Episodic Other nervous system disorders (19 sources) Abnormal gait; Translations: [Abnormality of gait] Episodic Other non-traumatic joint disorders (20 sources) Hip pain; Translations: [Pain in joint, pelvic region and thigh] Onset: 07-12-2025 07-20-2025 Episodic Other non-traumatic joint disorders (2 sources) Pain in unspecified hip; Translations: [Pain in joint, pelvic region and thigh] Episodic Other non-traumatic joint disorders (19 sources) Decreased range of hip movement; Translations: [Stiffness of joint, not elsewhere classified, pelvic region and thigh] Episodic Other nutritional; endocrine; and metabolic disorders (3 sources) Severe obesity; Translations: [Morbid (severe) obesity due to excess calories] Onset: 09-30-2023 09-30-2023 Chronic Other nutritional; endocrine; and metabolic disorders (9 sources) Body mass index 40+ - severely obese; Translations: [Morbid (severe) obesity due to excess calories] 10-29-2024 Chronic Other nutritional; endocrine; and metabolic disorders (1 source) Morbid (severe) obesity due to excess calories; Translations: [Morbid (severe) obesity due to excess calories] Onset: 11-02-2024 Chronic Other nutritional; endocrine; and metabolic disorders (1 source) Body mass index (BMI) 45.0-49.9, adult; Translations: [Body mass index [BMI] 45.0-49.9, adult] Onset: 11-02-2024 Chronic Other nutritional; endocrine; and metabolic disorders (20 sources) H/O: hypothyroidism; Translations: [Personal history of other endocrine, metabolic, and immunity disorders] Episodic Other nutritional; endocrine; and metabolic disorders (20 sources) H/O: diabetes mellitus; Translations: [Personal history of other endocrine, metabolic, and immunity disorders] Episodic Other screening for suspected conditions (not mental disorders or infectious disease) (20 sources) Patient encounter status; Translations: [Special screening for malignant neoplasms of vagina] Onset: 07-20-2023 Episodic Comment on above: 10/01/2017-NEGATIVE(YEARLY)09/25/2016-BQYINFIV16/12/2017-NEGATIV E (REPEAT); Peripheral and visceral atherosclerosis (1 source) Unspecified atherosclerosis; Translations: [Unspecified atherosclerosis] Onset: 06-02-2018 Chronic Pulmonary heart disease (19 sources) Pulmonary hypertension; Translations: [Pulmonary hypertension, unspecified] Onset: 04-06-2025 10-19-2024 Chronic Residual codes; unclassified (20 sources) [...] above: 1977; 39 WEEKS; MALE ; 6LBS [id number]; 39 WEEKS; MALE; 6LBS 14OZ; Residual codes; unclassified (3 sources) Asymptomatic menopausal state; Translations: [Asymptomatic menopausal state] Onset: 07-20-2023 Episodic Respiratory failure; insufficiency; arrest (adult) (10 sources) Acute hypoxemic respiratory failure; Translations: [Acute respiratory failure with hypoxia] Onset: 07-27-2025 10-29-2024 Episodic Retinal detachments; defects; vascular occlusion; and retinopathy (20 sources) Occlusion of left central retinal artery; Translations: [Central retinal artery occlusion, left eye] Onset: 05-06-2018 05-06-2018 Chronic Septicemia (except in labor) (11 sources) Sepsis; Translations: [Sepsis, unspecified organism] Onset: 07-27-2025 10-29-2024 Episodic Shock (10 sources) Cardiogenic shock; Translations: [Cardiogenic shock] Onset: 06-28-2025 07-20-2025 Episodic Unclassified (1 source) Appointment is with Janene Renner Unclassified (1 source) Acidosis, unspecified; Translations: [Acidosis, unspecified] Onset: 11-02-2024 Past or Other Problems Problem Classification Problem Date Documented Da te Episodic/Chronic Administrative/social admission (20 sources) Impaired ability to transfer location; Translations: [Other symptoms involving nervous and musculoskeletal systems] Onset: 02-15-2023 Episodic Blindness and vision defects (20 sources) Unspecified visual field defects; Translations: [Hypermetropia] Onset: 01-02-2015 01-02-2015 Episodic Cataract (20 sources) Bilateral senile combined form cataracts of eyes; Translations: [Combined forms of age-related cataract, bilateral] Onset: 01-02-2015 Resolved: 09-30-2023 02-15-2019 Chronic Fluid and electrolyte disorders (20 sources) Metabolic acidosis; Translations: [Metabolic acidosis] Onset: 04-06-2025 10-29-2024 Episodic Other aftercare (1 source) 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; Translations: [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] Onset: 04-06-2025 Episodic Other circulatory disease (1 source) Hemorrhage, not elsewhere classified; Translations: [Hemorrhage, not elsewhere classified] Onset: 03-23-2025 Episodic Other eye disorders (18 sources) H/O: L cataract extraction; Translations: [Cataract extraction status, left eye] Onset: 09-27-2023 08-27-2023 Episodic Other eye disorders (14 sources) H/O: R cataract extraction; Translations: [Cataract extraction status, right eye] Onset: 10-01-2023 10-01-2023 Episodic Other gastrointestinal disorders (1 source) Diarrhea, unspecified; Translations: [Diarrhea, unspecified] Onset: 05-24-2025 Episodic Other lower respiratory disease (2 sources) Hypoxemia; Translations: [Hypoxemia] Onset: 11-07-2024 Episodic Other lower respiratory disease (1 source) [...] hip, not elsewhere classified] Onset: 02-15-2023 Episodic Pneumonia (except that caused by tuberculosis or sexually transmitted disease) (10 sources) Pneumonia; Translations: [Pneumonia, unspecified organism] Onset: 11-02-2024 10-29-2024 Episodic Retinal detachments; defects; vascular occlusion; and retinopathy (20 sources) Multiple defects 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; Translations: [Multiple defects 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, unspecified eye] Onset: 01-02-2015 01-02-2015 Episodic Results Test Name Value Interpretation Reference Range Facility Vancomycin^troughon 28-20 25 Vancomycin trough [Mass/Vol] 19.6 ug/mL Normal 5.0-20.0 [facility] Comment on above: Result Comment: Ther apeutic Ranges: Peak (all ages): 30.0-40.0 ug/mL Trough (all ages): 10.0-20.0 ug/mL Vancomycin trough concentrations drawn immediately prior to the next dose at steady-state are preferred for concentration-guided monitoring of patients treated with vancomycin. Reference: Am J Health-Syst Pharm. 2020; 77(11):835-864. Performed By: #### 4 092-3 #### ARIANA LONDONO ([id number]) [facility] ([facility]) [address] [place] [address] 55776 C reactive proteinon 025 CRP [Mass/Vol] 3.43 mg/dL High <1.00 [facility] Comment on above: Performed By: #### 4 092-3 #### ARIANA LONDONO ([id number]) [facility] ([facility]) [address] [place] [address] 41301 CBC W Auto Differential pane l (Bld)on 09-10-2025 Basophils (Bld) [#/Vol] 0.02 x10*3/uL Normal 0.00-0.10 [facility] Comment on above: Performed By: #### 4 092-3 #### ARIANA LONDONO ([id number]) [facility] ([facility]) [address] [place] [address] 59594 Basophils/100 WBC (Bld) 0.2 % Normal 0.0-2.0 [facility] Comment on above: Performed By: #### 4 092-3 #### ARIANA LONDONO ([id number]) [facility] ([facility]) [address] [place] [address] 30892 Eosinophils (Bld) [#/Vol] 0.01 x10*3/uL Normal 0.00-0.40 [facility] Comment on above: Performed By: #### 4 092-3 #### ARIANA LONDONO ([id number]) [facility] ([facility]) [address] [place] [address] 52769 Eosinophils/100 WBC (Bld) 0.1 % Normal 0.0-6.0 [facility] Comment on above: Performed By: #### 4 092-3 #### ARIANA LONDONO ([id number]) [facility] ([facility]) [address] [place] [address] 66808 Erythrocyte distribution width (RBC) [Ratio] 19.7 % High 11.5-14.5 [facility] Comment on above: Performed By: #### 4 092-3 #### ARIANA LONDONO ([id number]) [facility] ([facility]) [address] [place] [address] Hematocrit (Bld) [Volume fraction] 40.7 % Normal 36.0-46.0 [facility] Comment on above: Performed By: #### 4 092-3 #### ARIANA LONDONO ([id number]) [facility] ([facility]) [address] [place] [address] Hemoglobin (Bld) [Mass/Vol] 11.5 g/dL Low 12.0-16.0 [facility] Comment on above: Performed By: #### 4 092-3 #### ARIANA LONDONO ([id number]) [facility] ([facility]) [address] [place] [address] Immature granulocytes (Bld) [#/Vol] 0.06 x10*3/uL Normal 0.00-0.50 [facility] Comment on above: Performed By: #### 4 092-3 #### ARIANA LONDONO ([id number]) [facility] ([facility]) [address] [place], [place] [id number] Immature granulocytes/100 WBC (Bld) 0.7 % Normal 0.0-0.9 [facility] Comment on above: Result Comment: Monica ture Granulocyte Count (IG) includes promyelocytes, myelocytes and metamyelocytes but does not include bands. Percent differential counts (%) should be interpreted in the context of the absolute cell counts (cells/UL). Performed By: #### 4 092-3 #### ARIANA LONDONO ([id number]) [facility] ([facility]) [address] [place] [address] 58690 Lymphocytes (Bld) [#/Vol] 1.30 x10*3/uL Normal 0.80-3.00 [facility] Comment on above: Performed By: #### 4 092-3 #### ARIANA LONDONO ([id number]) [facility] ([facility]) [address] [place] [address] 60103 Lymphocytes/100 WBC (Bld) 15.6 % Normal 13.0-44.0 [facility] Comment on above: Performed By: #### 4 092-3 #### ARIANA LNODONO ([id number]) [facility] ([facility]) [address] [place] [address] 28346 MCH (RBC) [Entitic mass] 27.4 pg Normal 26.0-34.0 [facility] Comment on above: Performed By: #### 4 092-3 #### ARIANA LONDONO ([id number]) [facility] ([facility]) [address] [place] [address] 81278 MCHC (RBC) [Mass/Vol] 28.3 g/dL Low 32.0-36.0 [facility] Comment on above: Performed By: #### 4 092-3 #### ARIANA LONDONO ([id number]) [facility] ([facility]) [address] [place] [address] 72150 MCV (RBC) [Entitic vol] 97 fL Normal 80-100 [facility] Comment on above: Performed By: #### 4 092-3 #### ARIANA LONDONO ([id number]) [facility] ([facility]) [address] [place] [address] 91433 Monocytes (Bld) [#/Vol] 0.95 x10*3/uL High 0.05-0.80 [facility] Comment on above: Performed By: #### 4 092-3 #### ARIANA LONDONO ([id number]) [facility] ([facility]) [address] [place] [address] 81865 Monocytes/100 WBC (Bld) 11.4 % Normal 2.0-10.0 [facility] Comment on above: Performed By: #### 4 092-3 #### ARIANA LONDONO ([id number]) [facility] ([facility]) [address] [place] [address] 64031 Neutrophils (Bld) [#/Vol] 6.00 x10*3/uL High 1.60-5.50 [facility] Comment on above: Result Comment: Perc ent differential counts (%) should be interpreted in the context of the absolute cell counts (cells/uL). Performed By: #### 4 092-3 #### ARIANA LONDONO ([id number]) [facility] ([facility]) [address] [place] [address] 83255 Neutrophils/100 WBC (Bld) 72.0 % Normal 40.0-80.0 [facility] Comment on above: Performed By: #### 4 092-3 #### ARIANA LONDONO ([id number]) [facility] ([facility]) [address] [place] [address] 62595 Nucleated RBC/100 WBC (Bld) [Ratio] 2.5 /100 WBCs High 0.0-0.0 [facility] Comment on above: Performed By: #### 4 092-3 #### ARIANA LONDONO ([id number]) [facility] ([facility]) [address] [place] [address] 00261 Platelets (Bld) [#/Vol] 314 x10*3/uL Normal 150-450 [facility] Comment on above: Performed By: #### 4 092-3 #### RAIANA LONDONO ([id number]) [facility] ([facility]) [address] [place] [address] 72988 RBC (Bld) [#/Vol] 4.19 x10*6/uL Normal 4.00-5.20 [facility] Comment on above: Performed By: #### 4 092-3 #### ARIANA LONDONO ([id number]) [facility] ([facility]) [address] [place] [address] 72158 WBC (Bld) [#/Vol] 8.3 x10*3/uL Normal 4.4-11.[address] [facility] Comment on above: Performed By: #### 4 092-3 #### ARIANA LONDONO ([id number]) [facility] ([facility]) [address] [place] [address] Comprehensive metabolic 2000 panelon 09-10-2025 Albumin BCP dye [Mass/Vol] 3.1 g/dL Low 3.4-5.0 [facility] Comment on above: Performed By: #### 4 092-3 #### ARIANA LONDONO ([id number]) [facility] ([facility]) [address] [place] [address] ALP [Catalytic activity/Vol] 194 U/L High 33-136 [facility] Comment on above: Performed By: #### 4 092-3 #### ARIANA LONDONO ([id number]) [facility] ([facility]) [address] [place] [address] ALT With P-5'-P [Catalytic activity/Vol] 21 U/L Normal 7-45 [facility] Comment on above: Result Comment: Angelica ents treated with Sulfasalazine may generate falsely decreased results for ALT. Performed By: #### 4 092-3 #### ARIANA LONDONO ([id number]) [facility] ([facility]) [address] [place] [address] Anion gap [Moles/Vol] 19 mmol/L Normal 10-20 [facility] Comment on above: Performed By: #### 4 092-3 #### ARIANA LONDONO ([id number]) [facility] ([facility]) [address] [place] [address] AST With P-5'-P [Catalytic activity/Vol] 24 U/L Normal 9-39 [facility] Comment on above: Performed By: #### 4 092-3 #### ARIANA LONDONO ([id number]) [facility] ([facility]) [address] [place] [address] Bilirubin [Mass/Vol] 0.7 mg/dL Normal 0.0-1.2 [facility] Comment on above: Performed By: #### 4 092-3 #### ARIANA LONDONO ([id number]) [facility] ([facility]) [address] [place] [address] Calcium [Mass/Vol] 8.5 mg/dL Low 8.6-10.3 [facility] Comment on above: Performed By: #### 4 092-3 #### ARIANA LONDONO ([id number]) [facility] ([facility]) [address] [place] [address] Chloride [Moles/Vol] 97 mmol/L Low 98-107 [facility] Comment on above: Performed By: #### 4 092-3 #### ARIANA LONDONO ([id number]) [facility] ([facility]) [address] [place] [address] 65556 CO2 [Moles/Vol] 24 mmol/L Normal 21-32 [facility] Comment on above: Performed By: #### 4 092-3 #### ARIANA LONDONO ([id number]) [facility] ([facility]) [address] [place] [address] 59147 Creatinine [Mass/Vol] 6.11 mg/dL High 0.50-1.05 [facility] Comment on above: Performed By: #### 4 092-3 #### ARIANA LONDONO ([id number]) [facility] ([facility]) [address] [place] [address] 02537 Glomerular filtration rate 7 mL/min/1.73m*2 Low >60 [facility] Comment on above: Result Comment: Calc ulations of estimated GFR are performed using the 2020 CKD-EPI Study Refit equation without the race variable for the IDMS-Traceable creatinine methods. https://jasn.asnjournals.org/content/early//ASN.209698 2918 Performed By: #### 4 092-3 #### ARIANA LONDONO ([id number]) [facility] ([facility]) [facility] [place] [address] Glucose [Mass/Vol] 108 mg/dL High 74-99 [facility] Comment on above: Performed By: #### 4 092-3 #### ARIANA LONDONO ([id number]) [facility] ([facility]) [address] [place] [address] 17922 Potassium [Moles/Vol] 4.6 mmol/L Normal 3.5-5.3 [facility] Comment on above: Performed By: #### 4 092-3 #### ARIANA LONDONO ([id number]) [facility] ([facility]) [address] [place] [address] Protein [Mass/Vol] 5.7 g/dL Low 6.4-8.2 [facility] Comment on above: Performed By: #### 4 092-3 #### ARIANA LONDONO ([id number]) [facility] ([facility]) [address] [place] [address] Sodium [Moles/Vol] 135 mmol/L Low 136-145 [facility] Comment on above: Performed By: #### 4 092-3 #### ARIANA LONDONO ([id number]) [facility] ([facility]) [address] [place] [address] Urea nitrogen [Mass/Vol] 41 mg/dL High 6-23 [facility] Comment on above: Performed By: #### 4 092-3 #### ARIANA LONDONO ([id number]) [facility] ([facility]) [address] [place] [address] ESR Westergren method (Bld) [Velocity]on 09-10-2025 ESR (Bld) [Velocity] 26 mm/h Normal 0-30 [facility] Comment on above: Performed By: #### 4 092-3 #### ARIANA LONDONO ([id number]) [facility] ([facility]) [address] [place], [place] [phone] Vancomycin^troughon 09-10-20 25 Vancomycin trough [Mass/Vol] 22.2 ug/mL Critically high 5.0-20.0 [facility] Comment on above: Result Comment: Ther apeutic Ranges: Peak (all ages): 30.0-40.0 ug/mL Trough (all ages): 10.0-20.0 ug/mL Vancomycin trough concentrations drawn immediately prior to the next dose at steady-state are preferred for concentration-guided monitoring of patients treated with vancomycin. Reference: Am J Health-Syst Pharm. 2020; 77(11):835-864. Performed By: #### 4 092-3 #### ARIANA LONDONO ([id number]) [facility] ([facility]) [address] [place] [address] 77863 Vancomycin^troughon 09-06-20 25 Vancomycin trough [Mass/Vol] 15.8 ug/mL Normal 5.0-20.0 [facility] Comment on above: Result Comment: Ther apeutic Ranges: Peak (all ages): 30.0-40.0 ug/mL Trough (all ages): 10.0-20.0 ug/mL Vancomycin trough concentrations drawn immediately prior to the next dose at steady-state are preferred for concentration-guided monitoring of patients treated with vancomycin. Reference: Am J Health-Syst Pharm. 2020; 77(11):835-864. Performed By: #### 4 092-3 #### ARIANA LONDONO ([id number]) [facility] ([facility]) [address] [place] [address] 42320 Echo Completeon 09-05-2025 Echo Complete Normal [facility] C reactive proteinon 025 CRP [Mass/Vol] 5.80 mg/dL High <1.00 [facility] Comment on above: Performed By: #### 2 4331-1 #### ARIANA LONDONO ([id number]) [facility] ([facility]) [address] [place] [address] 71783 CBC W Auto Differential pane l (Bld)on 09-03-2025 Basophils (Bld) [#/Vol] 0.04 x10*3/uL Normal 0.00-0.10 [facility] Comment on above: Performed By: #### 2 4331-1 #### ARIANA LONDONO ([id number]) [facility] ([facility]) [address] [place] [address] 41561 Basophils/100 WBC (Bld) 0.4 % Normal 0.0-2.0 [facility] Comment on above: Performed By: #### 2 4331-1 #### ARIANA LONDONO ([id number]) [facility] ([facility]) [address] [place] [address] 79537 Eosinophils (Bld) [#/Vol] 0.11 x10*3/uL Normal 0.00-0.40 [facility] Comment on above: Performed By: #### 2 4331-1 #### ARIANA LONDONO ([id number]) [facility] ([facility]) [address] [place] [address] 87310 Eosinophils/100 WBC (Bld) 1.1 % Normal 0.0-6.0 [facility] Comment on above: Performed By: #### 2 4331-1 #### ARIANA LONDONO ([id number]) [facility] ([facility]) [address] [place] [address] 31662 Erythrocyte distribution width (RBC) [Ratio] 21.1 % High 11.5-14.5 [facility] Comment on above: Performed By: #### 2 4331-1 #### ARIANA LONDONO ([id number]) [facility] ([facility]) [address] [place] [address] 08650 Hematocrit (Bld) [Volume fraction] 42.2 % Normal 36.0-46.0 [facility] Comment on above: Performed By: #### 2 4331-1 #### ARIANA LONDONO ([id number]) [facility] ([facility]) [address] [place] [address] 89489 Hemoglobin (Bld) [Mass/Vol] 11.9 g/dL Low 12.0-16.0 [facility] Comment on above: Performed By: #### 2 4331-1 #### ARAINA LONDONO ([id number]) [facility] ([facility]) [address] [place] [address] 77497 Immature granulocytes (Bld) [#/Vol] 0.05 x10*3/uL Normal 0.00-0.50 [facility] Comment on above: Performed By: #### 2 4331-1 #### ARIANA LONDONO ([id number]) [facility] ([facility]) [address] [place] [address] 65165 Immature granulocytes/100 WBC (Bld) 0.5 % Normal 0.0-0.9 [facility] Comment on above: Result Comment: Monica ture Granulocyte Count (IG) includes promyelocytes, myelocytes and metamyelocytes but does not include bands. Percent differential counts (%) should be interpreted in the context of the absolute cell counts (cells/UL). Performed By: #### 2 4331-1 #### ARIANA LONDONO ([id number]) [facility] ([facility]) [address] [place] [address] 75886 Lymphocytes (Bld) [#/Vol] 1.52 x10*3/uL Normal 0.80-3.00 [facility] Comment on above: Performed By: #### 2 4331-1 #### ARIANA LONDONO ([id number]) [facility] ([facility]) [address] [place] [address] 72286 Lymphocytes/100 WBC (Bld) 15.7 % Normal 13.0-44.0 [facility] Comment on above: Performed By: #### 2 4331-1 #### ARIANA LONDONO ([id number]) [facility] ([facility]) [address] [place] [address] 19644 MCH (RBC) [Entitic mass] 28.2 pg Normal 26.0-34.0 [facility] Comment on above: Performed By: #### 2 4331-1 #### ARIANA LONDONO ([id number]) [facility] ([facility]) [address] [place] [address] 66622 MCHC (RBC) [Mass/Vol] 28.2 g/dL Low 32.0-36.0 [facility] Comment on above: Performed By: #### 2 4331-1 #### ARIANA LONDONO ([id number]) [facility] ([facility]) [address] [place] [address] 43847 MCV (RBC) [Entitic vol] 100 fL Normal 80-100 [facility] Comment on above: Performed By: #### 2 4331-1 #### ARAINA LONDONO ([id number]) [facility] ([facility]) [address] [place] [address] 79040 Monocytes (Bld) [#/Vol] 0.92 x10*3/uL High 0.05-0.80 [facility] Comment on above: Performed By: #### 2 4331-1 #### ARIANA LONDONO ([id number]) [facility] ([facility]) [address] [place] [address] 75356 Monocytes/100 WBC (Bld) 9.5 % Normal 2.0-10.0 [facility] Comment on above: Performed By: #### 2 4331-1 #### ARIANA LONDONO ([id number]) [facility] ([facility]) [address] [place] [address] 87741 Neutrophils (Bld) [#/Vol] 7.06 x10*3/uL High 1.60-5.50 [facility] Comment on above: Result Comment: Perc ent differential counts (%) should be interpreted in the context of the absolute cell counts (cells/uL). Performed By: #### 2 4331-1 #### ARIANA LONDONO ([id number]) [facility] ([facility]) [address] [place] [address] 57009 Neutrophils/100 WBC (Bld) 72.8 % Normal 40.0-80.0 [facility] Comment on above: Performed By: #### 2 4331-1 #### ARIANA LONDONO ([id number]) [facility] ([facility]) [address] [place] [address] 06100 Nucleated RBC/100 WBC (Bld) [Ratio] 0.5 /100 WBCs High 0.0-0.0 [facility] Comment on above: Performed By: #### 2 4331-1 #### ARIANA LONDONO ([id number]) [facility] ([facility]) [address] [place] [address] 02634 Platelets (Bld) [#/Vol] 286 x10*3/uL Normal 150-450 [facility] Comment on above: Performed By: #### 2 4331-1 #### ARIANA LONDONO ([id number]) [facility] ([facility]) [address] [place] [address] 92313 RBC (Bld) [#/Vol] 4.22 x10*6/uL Normal 4.00-5.20 [facility] Comment on above: Performed By: #### 2 4331-1 #### ARIANA LONDONO ([id number]) [facility] ([facility]) [address] [place] [address] 37961 WBC (Bld) [#/Vol] 9.7 x10*3/uL Normal 4.4-11.[address] [facility] Comment on above: Performed By: #### 2 4331-1 #### ARIANA LONDONO ([id number]) [facility] ([facility]) [address] [place] [address] Comprehensive metabolic 2000 panelon 09-03-2025 Albumin BCP dye [Mass/Vol] 3.0 g/dL Low 3.4-5.0 [facility] Comment on above: Performed By: #### 4 092-3 #### ARIANA LONODNO ([id number]) [facility] ([facility]) [address] [place] [address] 62007 ALP [Catalytic activity/Vol] 178 U/L High 33-136 [facility] Comment on above: Performed By: #### 4 092-3 #### ARIANA LONDONO ([id number]) [facility] ([facility]) [address] [place] [address] 18383 ALT With P-5'-P [Catalytic activity/Vol] 11 U/L Normal 7-45 [facility] Comment on above: Result Comment: Angelica ents treated with Sulfasalazine may generate falsely decreased results for ALT. Performed By: #### 4 092-3 #### ARIANA LONDONO ([id number]) [facility] ([facility]) [address] [place] [address] 88890 Anion gap [Moles/Vol] 15 mmol/L Normal 10-20 [facility] Comment on above: Performed By: #### 4 092-3 #### ARIANA LONDONO ([id number]) [facility] ([facility]) [address] [place] [address] AST With P-5'-P [Catalytic activity/Vol] 15 U/L Normal 9-39 [facility] Comment on above: Performed By: #### 4 092-3 #### ARIANA LONDONO ([id number]) [facility] ([facility]) [address] [place] [address] Bilirubin [Mass/Vol] 0.6 mg/dL Normal 0.0-1.2 [facility] Comment on above: Performed By: #### 4 092-3 #### ARIANA LONDONO ([id number]) [facility] ([facility]) [address] [place] [address] 42834 Calcium [Mass/Vol] 8.4 mg/dL Low 8.6-10.3 [facility] Comment on above: Performed By: #### 4 092-3 #### ARIANA LONDONO ([id number]) [facility] ([facility]) [address] [place] [address] Chloride [Moles/Vol] 97 mmol/L Low 98-107 [facility] Comment on above: Performed By: #### 4 092-3 #### ARIANA LONDONO ([id number]) [facility] ([facility]) [address] [place] [address] CO2 [Moles/Vol] 30 mmol/L Normal 21-32 [facility] Comment on above: Performed By: #### 4 092-3 #### ARIANA LONDONO ([id number]) [facility] ([facility]) [address] [place] [address] Creatinine [Mass/Vol] 6.13 mg/dL High 0.50-1.05 [facility] Comment on above: Performed By: #### 4 092-3 #### ARIANA LONDONO ([id number]) [facility] ([facility]) [address] [place] [address] Glomerular filtration rate 7 mL/min/1.73m*2 Low >60 [facility] Comment on above: Result Comment: Calc ulations of estimated GFR are performed using the 2020 CKD-EPI Study Refit equation without the race variable for the IDMS-Traceable creatinine methods. https://jasn.asnjournals.org/content/early/ASN.232799 1465 Performed By: #### 4 092-3 #### ARIANA LONDONO ([id number]) [facility] ([facility]) [address] [place] [address] 11826 Glucose [Mass/Vol] 110 mg/dL High 74-99 [facility] Comment on above: Performed By: #### 4 092-3 #### ARIANA LONDONO ([id number]) [facility] ([facility]) [address] [place] [address] 30305 Potassium [Moles/Vol] 4.5 mmol/L Normal 3.5-5.3 [facility] Comment on above: Performed By: #### 4 092-3 #### ARIANA LONDONO ([id number]) [facility] ([facility]) [address] [place] [address] 94332 Protein [Mass/Vol] 5.9 g/dL Low 6.4-8.2 [facility] Comment on above: Performed By: #### 4 092-3 #### ARIANA LONDONO ([id number]) [facility] ([facility]) [address] [place] [address] 18545 Sodium [Moles/Vol] 137 mmol/L Normal 136-145 [facility] Comment on above: Performed By: #### 4 092-3 #### ARIANA LONDONO ([id number]) [facility] ([facility]) [address] [place] [address] 58675 Urea nitrogen [Mass/Vol] 38 mg/dL High 6-23 [facility] Comment on above: Performed By: #### 4 092-3 #### ARIANA LONDONO ([id number]) [facility] ([facility]) [address] [place] [address] 90127 ESR Westergren method (Bld) [Velocity]on 10-20-2025 ESR (Bld) [Velocity] 52 mm/h High 0-30 [facility] Comment on above: Performed By: #### 4 092-3 #### ARIANA LONDONO ([id number]) [facility] ([facility]) [address] [place] [address] 57434 Vancomycin^troughon 09-03-20 25 Vancomycin trough [Mass/Vol] 21.9 ug/mL Critically high 5.0-20.0 [facility] Comment on above: Result Comment: Ther apeutic Ranges: Peak (all ages): 30.0-40.0 ug/mL Trough (all ages): 10.0-20.0 ug/mL Vancomycin trough concentrations drawn immediately prior to the next dose at steady-state are preferred for concentration-guided monitoring of patients treated with vancomycin. Reference: Am J Health-Syst Pharm. 2020; 77(11):835-864. Performed By: #### 4 092-3 #### ARIANA LONDONO ([id number]) [facility] ([facility]) [address] [place] [address] 74769 C reactive proteinon 025 CRP [Mass/Vol] 9.82 mg/dL High <1.00 [facility] Comment on above: Performed By: #### 2 4331-1 #### ARIANA LONDONO ([id number]) [facility] ([facility]) [address] [place] [address] 85565 CBC W Auto Differential pane l (Bld)on 08-27-2025 Basophils (Bld) [#/Vol] 0.03 x10*3/uL Normal 0.00-0.10 [facility] Comment on above: Performed By: #### 2 4331-1 #### ARIANA LONDONO ([id number]) [facility] ([facility]) [address] [place] [address] 98256 Basophils/100 WBC (Bld) 0.4 % Normal 0.0-2.0 [facility] Comment on above: Performed By: #### 2 4331-1 #### ARIANA LONDONO ([id number]) [facility] ([facility]) [address] [place] [address] 59607 Eosinophils (Bld) [#/Vol] 0.01 x10*3/uL Normal 0.00-0.40 [facility] Comment on above: Performed By: #### 2 4331-1 #### ARIANA LONDONO ([id number]) [facility] ([facility]) [address] [place] [address] 17211 Eosinophils/100 WBC (Bld) 0.1 % Normal 0.0-6.0 [facility] Comment on above: Performed By: #### 2 4331-1 #### ARIANA LONDONO ([id number]) [facility] ([facility]) [address] [place] [address] 87286 Erythrocyte distribution width (RBC) [Ratio] 21.4 % High 11.5-14.5 [facility] Comment on above: Performed By: #### 2 4331-1 #### ARIANA LONDONO ([id number]) [facility] ([facility]) [address] [place] [address] 09613 Hematocrit (Bld) [Volume fraction] 36.0 % Normal 36.0-46.0 [facility] Comment on above: Performed By: #### 2 4331-1 #### ARIANA LONDONO ([id number]) [facility] ([facility]) [address] [place] [address] 52167 Hemoglobin (Bld) [Mass/Vol] 10.5 g/dL Low 12.0-16.0 [facility] Comment on above: Performed By: #### 2 4331-1 #### ARIANA LONDONO ([id number]) [facility] ([facility]) [address] [place] [address] 72320 Immature granulocytes (Bld) [#/Vol] 0.06 x10*3/uL Normal 0.00-0.50 [facility] Comment on above: Performed By: #### 2 4331-1 #### ARIANA LONDONO ([id number]) [facility] ([facility]) [address] [place] [address] 14691 Immature granulocytes/100 WBC (Bld) 0.7 % Normal 0.0-0.9 [facility] Comment on above: Result Comment: Monica ture Granulocyte Count (IG) includes promyelocytes, myelocytes and metamyelocytes but does not include bands. Percent differential counts (%) should be interpreted in the context of the absolute cell counts (cells/UL). Performed By: #### 2 4331-1 #### ARIANA LONDONO ([id number]) [facility] ([facility]) [address] [place] [address] 60199 Lymphocytes (Bld) [#/Vol] 1.63 x10*3/uL Normal 0.80-3.00 [facility] Comment on above: Performed By: #### 2 4331-1 #### ARIANA LONDONO ([id number]) [facility] ([facility]) [address] [place] [address] 42198 Lymphocytes/100 WBC (Bld) 19.6 % Normal 13.0-44.0 [facility] Comment on above: Performed By: #### 2 4331-1 #### ARIANA LONDONO ([id number]) [facility] ([facility]) [address] [place] [address] 17089 MCH (RBC) [Entitic mass] 27.7 pg Normal 26.0-34.0 [facility] Comment on above: Performed By: #### 2 4331-1 #### ARIANA LONDONO ([id number]) [facility] ([facility]) [address] [place] [address] 57630 MCHC (RBC) [Mass/Vol] 29.2 g/dL Low 32.0-36.0 [facility] Comment on above: Performed By: #### 2 4331-1 #### ARIANA LONDONO ([id number]) [facility] ([facility]) [address] [place] [address] 48845 MCV (RBC) [Entitic vol] 95 fL Normal 80-100 [facility] Comment on above: Performed By: #### 2 4331-1 #### ARIANA LONDONO ([id number]) [facility] ([facility]) [address] [place] [address] 88472 Monocytes (Bld) [#/Vol] 0.74 x10*3/uL Normal 0.05-0.80 [facility] Comment on above: Performed By: #### 2 4331-1 #### ARIANA LONDONO ([id number]) [facility] ([facility]) [facility] [place] [address] Monocytes/100 WBC (Bld) 8.9 % Normal 2.0-10.0 [facility] Comment on above: Performed By: #### 2 4331-1 #### ARIANA LONDONO ([id number]) [facility] ([facility]) [address] [place] [address] 37534 Neutrophils (Bld) [#/Vol] 5.85 x10*3/uL High 1.60-5.50 [facility] Comment on above: Result Comment: Perc ent differential counts (%) should be interpreted in the context of the absolute cell counts (cells/uL). Performed By: #### 2 4331-1 #### ARIANA LONDONO ([id number]) [facility] ([facility]) [address] [place] [address] 45829 Neutrophils/100 WBC (Bld) 70.3 % Normal 40.0-80.0 [facility] Comment on above: Performed By: #### 2 4331-1 #### ARIANA LONDONO (64263) [facility] ([facility]) [address] [place] [address] 32341 Nucleated RBC/100 WBC (Bld) [Ratio] 0.2 /100 WBCs High 0.0-0.0 [facility] Comment on above: Performed By: #### 2 4331-1 #### ARIANA LONDONO ([id number]) [facility] ([facility]) [address] [place] [address] 47746 Platelets (Bld) [#/Vol] 345 x10*3/uL Normal 150-450 [facility] Comment on above: Performed By: #### 2 4331-1 #### ARIANA LONDONO ([id number]) [facility] ([facility]) [address] [place] [address] 63958 RBC (Bld) [#/Vol] 3.79 x10*6/uL Low 4.00-5.20 [facility] Comment on above: Performed By: #### 2 4331-1 #### ARIANA LONDONO ([id number]) [facility] ([facility]) [address] [place] [address] 83434 WBC (Bld) [#/Vol] 8.3 x10*3/uL Normal 4.4-11.[address] [facility] Comment on above: Performed By: #### 2 4331-1 #### ARIANA LONDONO ([id number]) [facility] ([facility]) [address] [place] [address] Comprehensive metabolic 2000 panelon 08-27-2025 Albumin BCP dye [Mass/Vol] 3.0 g/dL Low 3.4-5.0 [facility] Comment on above: Performed By: #### 2 4331-1 #### ARIANA LONDONO ([id number]) [facility] ([facility]) [address] [place] [address] 71416 ALP [Catalytic activity/Vol] 171 U/L High 33-136 [facility] Comment on above: Performed By: #### 2 4331-1 #### ARIANA LONDONO ([id number]) [facility] ([facility]) [address] [place] [address] 02980 ALT With P-5'-P [Catalytic activity/Vol] 12 U/L Normal 7-45 [facility] Comment on above: Result Comment: Angelica ents treated with Sulfasalazine may generate falsely decreased results for ALT. Performed By: #### 2 4331-1 #### ARIANA LONDONO ([id number]) [facility] ([facility]) [address] [place] [address] 13701 Anion gap [Moles/Vol] 20 mmol/L Normal 10-20 [facility] Comment on above: Performed By: #### 2 4331-1 #### ARIANA LONDONO ([id number]) [facility] ([facility]) [address] [place] [address] 38849 AST With P-5'-P [Catalytic activity/Vol] 24 U/L Normal 9-39 [facility] Comment on above: Result Comment: MILD HEMOLYSIS DETECTED. The result may be falsely elevated due to hemolysis or other interferents. Clinical correlation is recommended. Repeat testing may be considered. Performed By: #### 2 4331-1 #### ARIANA LONDONO ([id number]) [facility] ([facility]) [address] [place] [address] Bilirubin [Mass/Vol] 1.3 mg/dL High 0.0-1.2 [facility] Comment on above: Performed By: #### 2 4331-1 #### ARIANA LONDONO ([id number]) [facility] ([facility]) [address] [place] [address] 68049 Calcium [Mass/Vol] 8.4 mg/dL Low 8.6-10.3 [facility] Comment on above: Performed By: #### 2 4331-1 #### ARIANA LONDONO ([id number]) [facility] ([facility]) [address] [place] [address] Chloride [Moles/Vol] 97 mmol/L Low 98-107 [facility] Comment on above: Performed By: #### 2 4331-1 #### ARIANA LONDONO ([id number]) [facility] ([facility]) [address] [place] [address] CO2 [Moles/Vol] 24 mmol/L Normal 21-32 [facility] Comment on above: Performed By: #### 2 4331-1 #### ARIANA LONDONO ([id number]) [facility] ([facility]) [address] [place] [address] Creatinine [Mass/Vol] 4.42 mg/dL High 0.50-1.05 [facility] Comment on above: Performed By: #### 2 4331-1 #### ARIANA LONDONO (69371) [facility] ([facility]) [address] [place] [address] Glomerular filtration rate 10 mL/min/1.73m*2 Low >60 [facility] Comment on above: Result Comment: Calc ulations of estimated GFR are performed using the 2020 CKD-EPI Study Refit equation without the race variable for the IDMS-Traceable creatinine methods. https://jasn.asnjournals.org/content/early/ASN.523072 8952 Performed By: #### 2 4331-1 #### ARIANA LONDONO ([id number]) [facility] ([facility]) [address] [place] [address] 14312 Glucose [Mass/Vol] 99 mg/dL Normal 74-99 [facility] Comment on above: Performed By: #### 2 4331-1 #### ARIANA LONDONO ([id number]) [facility] ([facility]) [address] [place] [address] 88714 Potassium [Moles/Vol] 4.8 mmol/L Normal 3.5-5.3 [facility] Comment on above: Result Comment: MILD HEMOLYSIS DETECTED. The result may be falsely elevated due to hemolysis or other interferents. Clinical correlation is recommended. Repeat testing may be considered. Performed By: #### 2 4331-1 #### ARIANA LONDONO (60914) [facility] ([facility]) [address] [place] [address] 79956 Protein [Mass/Vol] 6.0 g/dL Low 6.4-8.2 [facility] Comment on above: Performed By: #### 2 4331-1 #### ARIANA LONDONO ([id number]) [facility] ([facility]) [address] [place] [address] 11744 Sodium [Moles/Vol] 136 mmol/L Normal 136-145 [facility] Comment on above: Performed By: #### 2 4331-1 #### ARIANA LONDONO ([id number]) [facility] ([facility]) [address] [place] [address] 02599 Urea nitrogen [Mass/Vol] 36 mg/dL High 6-23 [facility] Comment on above: Performed By: #### 2 4331-1 #### ARIANA LONDONO ([id number]) [facility] ([facility]) [address] [place] [address] 94232 ESR Westergren method (Bld) [Velocity]on 08-27-2025 ESR (Bld) [Velocity] 59 mm/h High 0-30 [facility] Comment on above: Performed By: #### 2 4331-1 #### ARIANA LONDONO (77856) [facility] ([facility]) [address] [place] [address] Vancomycin^troughon 08-27-20 25 Vancomycin trough [Mass/Vol] 17.1 ug/mL Normal 5.0-20.0 [facility] Comment on above: Result Comment: Ther apeutic Ranges: Peak (all ages): 30.0-40.0 ug/mL Trough (all ages): 10.0-20.0 ug/mL Vancomycin trough concentrations drawn immediately prior to the next dose at steady-state are preferred for concentration-guided monitoring of patients treated with vancomycin. Reference: Am J Health-Syst Pharm. 2020; 77(11):835-864. Performed By: #### 2 4331-1 #### ARIANA LONDONO ([id number]) [facility] ([facility]) [address] [place] [address] C reactive proteinon 025 CRP [Mass/Vol] 5.36 mg/dL High <1.00 [facility] Comment on above: Performed By: #### 2 4323-8 #### ARIANA LONDONO ([id number]) [facility] ([facility]) [address] [place], [place] [address] CBC W Auto Differential pane l (Bld)on 08-20-2025 Basophils (Bld) [#/Vol] 0.03 x10*3/uL Normal 0.00-0.10 [facility] Comment on above: Performed By: #### 2 4323-8 #### ARIANA LONDONO ([id number]) [facility] ([facility]) [address] [place], [place] [address] Basophils/100 WBC (Bld) 0.5 % Normal 0.0-2.0 [facility] Comment on above: Performed By: #### 2 4323-8 #### ARIANA LONDONO (88562) [facility] ([facility]) [address] [place] [address] 60757 Eosinophils (Bld) [#/Vol] 0.12 x10*3/uL Normal 0.00-0.40 [facility] Comment on above: Performed By: #### 2 4323-8 #### ARIANA LONDONO ([id number]) [facility] ([facility]) [address] [place] [address] 13691 Eosinophils/100 WBC (Bld) 1.9 % Normal 0.0-6.0 [facility] Comment on above: Performed By: #### 2 4322-8 #### ARIANA LONDONO ([id number]) [facility] ([facility]) [address] [place] [address] 83952 Erythrocyte distribution width (RBC) [Ratio] 22.1 % High 11.5-14.5 [facility] Comment on above: Performed By: #### 2 4322-8 #### ARIANA LONDONO ([id number]) [facility] ([facility]) [address] [place] [address] 49238 Hematocrit (Bld) [Volume fraction] 29.9 % Low 36.0-46.0 [facility] Comment on above: Performed By: #### 2 4322-8 #### ARIANA LONDONO (10642) [facility] ([facility]) [address] [place] [address] 37781 Hemoglobin (Bld) [Mass/Vol] 9.0 g/dL Low 12.0-16.0 [facility] Comment on above: Performed By: #### 2 432-8 #### ARIANA LONDONO ([id number]) [facility] ([facility]) [address] [place] [address] 73502 Immature granulocytes (Bld) [#/Vol] 0.02 x10*3/uL Normal 0.00-0.50 [facility] Comment on above: Performed By: #### 2 432-8 #### ARIANA LONDONO ([id number]) [facility] ([facility]) [address] [place] [address] 28665 Immature granulocytes/100 WBC (Bld) 0.3 % Normal 0.0-0.9 [facility] Comment on above: Result Comment: Monica ture Granulocyte Count (IG) includes promyelocytes, myelocytes and metamyelocytes but does not include bands. Percent differential counts (%) should be interpreted in the context of the absolute cell counts (cells/UL). Performed By: #### 2 4323-8 #### ARIANA LONDONO ([id number]) [facility] ([facility]) [address] [place] [address] 38957 Lymphocytes (Bld) [#/Vol] 1.37 x10*3/uL Normal 0.80-3.00 [facility] Comment on above: Performed By: #### 2 4323-8 #### ARIANA LONDONO ([id number]) [facility] ([facility]) [address] [place] [address] 58539 Lymphocytes/100 WBC (Bld) 21.2 % Normal 13.0-44.0 [facility] Comment on above: Performed By: #### 2 4323-8 #### ARIANA LONDONO ([id number]) [facility] ([facility]) [address] [place] [address] 85605 MCH (RBC) [Entitic mass] 27.6 pg Normal 26.0-34.0 [facility] Comment on above: Performed By: #### 2 4323-8 #### ARIANA LONDONO ([id number]) [facility] ([facility]) [address] [place] [address] 58489 MCHC (RBC) [Mass/Vol] 30.1 g/dL Low 32.0-36.0 [facility] Comment on above: Performed By: #### 2 4323-8 #### ARIANA LONDONO ([id number]) [facility] ([facility]) [address] [place] [address] 93856 MCV (RBC) [Entitic vol] 92 fL Normal 80-100 [facility] Comment on above: Performed By: #### 2 4323-8 #### ARIANA LONDONO ([id number]) [facility] ([facility]) [address] [place] [address] 64300 Monocytes (Bld) [#/Vol] 0.59 x10*3/uL Normal 0.05-0.80 [facility] Comment on above: Performed By: #### 2 4323-8 #### ARIANA LONDONO ([id number]) [facility] ([facility]) [address] [place] [address] 93528 Monocytes/100 WBC (Bld) 9.1 % Normal 2.0-10.0 [facility] Comment on above: Performed By: #### 2 432-8 #### ARIANA LONDONO ([id number]) [facility] ([facility]) [address] [place] [address] [id number] Neutrophils (Bld) [#/Vol] 4.32 x10*3/uL Normal 1.60-5.50 [facility] Comment on above: Result Comment: Perc ent differential counts (%) should be interpreted in the context of the absolute cell counts (cells/uL). Performed By: #### 2 4323-8 #### ARIANA LONDONO ([id number]) [facility] ([facility]) [address] [place] [address] 68208 Neutrophils/100 WBC (Bld) 67.0 % Normal 40.0-80.0 [facility] Comment on above: Performed By: #### 2 4323-8 #### ARIANA LONDONO ([id number]) [facility] ([facility]) [address] [place] [address] 40370 Nucleated RBC/100 WBC (Bld) [Ratio] 0.0 /100 WBCs Normal 0.0-0.0 [facility] Comment on above: Performed By: #### 2 4323-8 #### ARIANA LONDONO ([id number]) [facility] ([facility]) [address] [place] [address] [phone] Platelets (Bld) [#/Vol] 326 x10*3/uL Normal 150-450 [facility] Comment on above: Performed By: #### 2 432-8 #### ARIANA LONDONO ([id number]) [facility] ([facility]) [facility] [place] [address] RBC (Bld) [#/Vol] 3.26 x10*6/uL Low 4.00-5.20 [facility] Comment on above: Performed By: #### 2 4323-8 #### ARIANA LONDONO ([id number]) [facility] ([facility]) [address] [place], [place] [id number] WBC (Bld) [#/Vol] 6.5 x10*3/uL Normal 4.4-11.[address] [facility] Comment on above: Performed By: #### 2 4323-8 #### ARIANA LONDONO ([id number]) [facility] ([facility]) [address] [place] [address] Comprehensive metabolic 2000 panelon 08-20-2025 Albumin BCP dye [Mass/Vol] 2.7 g/dL Low 3.4-5.0 [facility] Comment on above: Performed By: #### 2 4331-1 #### ARIANA LONDONO ([id number]) [facility] ([facility]) [address] [place] [address] 67778 ALP [Catalytic activity/Vol] 151 U/L High 33-136 [facility] Comment on above: Performed By: #### 2 4331-1 #### ARIANA LONDONO ([id number]) [facility] ([facility]) [address] [place] [address] 07140 ALT With P-5'-P [Catalytic activity/Vol] 11 U/L Normal 7-45 [facility] Comment on above: Result Comment: Angelica ents treated with Sulfasalazine may generate falsely decreased results for ALT. Performed By: #### 2 4331-1 #### ARIANA LONDONO ([id number]) [facility] ([facility]) [address] [place] [address] 52528 Anion gap [Moles/Vol] 13 mmol/L Normal 10-20 [facility] Comment on above: Performed By: #### 2 4331-1 #### ARINAA LONDONO ([id number]) [facility] ([facility]) [address] [place] [address] AST With P-5'-P [Catalytic activity/Vol] 17 U/L Normal 9-39 [facility] Comment on above: Performed By: #### 2 4331-1 #### ARIANA LONDONO ([id number]) [facility] ([facility]) [address] [place] [address] Bilirubin [Mass/Vol] 0.5 mg/dL Normal 0.0-1.2 [facility] Comment on above: Performed By: #### 2 4331-1 #### ARIANA LONDONO ([id number]) [facility] ([facility]) [address] [place] [address] 09793 Calcium [Mass/Vol] 7.8 mg/dL Low 8.6-10.3 [facility] Comment on above: Performed By: #### 2 4331-1 #### ARIANA LONDONO ([id number]) [facility] ([facility]) [address] [place] [address] Chloride [Moles/Vol] 99 mmol/L Normal 98-107 [facility] Comment on above: Performed By: #### 2 4331-1 #### ARIANA LONDONO ([id number]) [facility] ([facility]) [address] [place] [address] CO2 [Moles/Vol] 30 mmol/L Normal 21-32 [facility] Comment on above: Performed By: #### 2 4331-1 #### ARIANA LONDONO ([id number]) [facility] ([facility]) [address] [place] [address] Creatinine [Mass/Vol] 4.03 mg/dL High 0.50-1.05 [facility] Comment on above: Performed By: #### 2 4331-1 #### ARIANA LONDONO ([id number]) [facility] ([facility]) [address] [place] [address] Glomerular filtration rate 11 mL/min/1.73m*2 Low >60 [facility] Comment on above: Result Comment: Calc ulations of estimated GFR are performed using the 2020 CKD-EPI Study Refit equation without the race variable for the IDMS-Traceable creatinine methods. https://jasn.asnjournals.org/content/early//ASN.125616 1699 Performed By: #### 2 4331-1 #### ARIANA LONDONO ([id number]) [facility] ([facility]) [address] [place] [address] 55652 Glucose [Mass/Vol] 100 mg/dL High 74-99 [facility] Comment on above: Performed By: #### 2 4331-1 #### ARIANA LONDONO ([id number]) [facility] ([facility]) [address] [place] [address] 75509 Potassium [Moles/Vol] 4.1 mmol/L Normal 3.5-5.3 [facility] Comment on above: Performed By: #### 2 4331-1 #### ARIANA LONDONO ([id number]) [facility] ([facility]) [address] [place] [address] 80285 Protein [Mass/Vol] 5.5 g/dL Low 6.4-8.2 [facility] Comment on above: Performed By: #### 2 4331-1 #### ARIANA LONDONO ([id number]) [facility] ([facility]) [address] [place] [address] 76982 Sodium [Moles/Vol] 138 mmol/L Normal 136-145 [facility] Comment on above: Performed By: #### 2 4331-1 #### ARIANA LONDONO ([id number]) [facility] ([facility]) [address] [place] [address] 37177 Urea nitrogen [Mass/Vol] 38 mg/dL High 6-23 [facility] Comment on above: Performed By: #### 2 4331-1 #### ARIANA LONDONO ([id number]) [facility] ([facility]) [address] [place] [address] 10944 ESR Westergren method (Bld) [Velocity]on 08-20-2025 ESR (Bld) [Velocity] 75 mm/h High 0-30 [facility] Comment on above: Performed By: #### 2 4331-1 #### ARIANA LONDONO ([id number]) [facility] ([facility]) [address] [place] [address] Vancomycin^troughon 08-20-20 25 Vancomycin trough [Mass/Vol] 18.9 ug/mL Normal 5.0-20.0 [facility] Comment on above: Result Comment: Ther apeutic Ranges: Peak (all ages): 30.0-40.0 ug/mL Trough (all ages): 10.0-20.0 ug/mL Vancomycin trough concentrations drawn immediately prior to the next dose at steady-state are preferred for concentration-guided monitoring of patients treated with vancomycin. Reference: Am J Health-Syst Pharm. 2020; 77(11):835-864. Performed By: #### 2 4331-1 #### ARIANA LONDONO ([id number]) [facility] ([facility]) [address] [place] [address] C reactive proteinon 025 CRP [Mass/Vol] 10.85 mg/dL High <1.00 [facility] Comment on above: Performed By: #### 2 4323-8 #### ARIANA LONDONO ([id number]) [facility] ([facility]) [address] [place] [address] CBC panel Auto (Bld)on 08-13 Erythrocyte distribution width (RBC) [Ratio] 21.2 % High 11.5-14.5 [facility] Comment on above: Performed By: #### 2 4323-8 #### ARIANA LONDONO ([id number]) [facility] ([facility]) [address] [place] [address] Hematocrit (Bld) [Volume fraction] 30.4 % Low 36.0-46.0 [facility] Comment on above: Performed By: #### 2 4323-8 #### ARIANA LONDONO ([id number]) [facility] ([facility]) [address] [place] [address] 73911 Hemoglobin (Bld) [Mass/Vol] 9.1 g/dL Low 12.0-16.0 [facility] Comment on above: Performed By: #### 2 4323-8 #### ARIANA LONDONO ([id number]) [facility] ([facility]) [address] [place] [address] 52899 MCH (RBC) [Entitic mass] 27.3 pg Normal 26.0-34.0 [facility] Comment on above: Performed By: #### 2 432-8 #### ARIANA LONDONO ([id number]) [facility] ([facility]) [address] [place] [address] 57560 MCHC (RBC) [Mass/Vol] 29.9 g/dL Low 32.0-36.0 [facility] Comment on above: Performed By: #### 2 4322-8 #### ARIANA LONDONO ([id number]) [facility] ([facility]) [address] [place] [address] 36580 MCV (RBC) [Entitic vol] 91 fL Normal 80-100 [facility] Comment on above: Performed By: #### 2 4322-8 #### ARIANA LONDONO ([id number]) [facility] ([facility]) [address] [place] [address] 25834 Nucleated RBC/100 WBC (Bld) [Ratio] 0.6 /100 WBCs High 0.0-0.0 [facility] Comment on above: Performed By: #### 2 4323-8 #### ARIANA LONDONO ([id number]) [facility] ([facility]) [address] [place] [address] 63905 Platelets (Bld) [#/Vol] 469 x10*3/uL High 150-450 [facility] Comment on above: Performed By: #### 2 432-8 #### ARIANA LONDONO ([id number]) [facility] ([facility]) [address] [place] [address] 97351 RBC (Bld) [#/Vol] 3.33 x10*6/uL Low 4.00-5.20 [facility] Comment on above: Performed By: #### 2 4323-8 #### ARIANA LONDONO ([id number]) [facility] ([facility]) [address] [place] [address] WBC (Bld) [#/Vol] 11.3 x10*3/uL Normal 4.4-11.3 [facility] Comment on above: Performed By: #### 2 4323-8 #### ARIANA LONDONO ([id number]) [facility] ([facility]) [address] [place] [address] Comprehensive metabolic 2000 panelon 08-13-2025 Albumin BCP dye [Mass/Vol] 2.5 g/dL Low 3.4-5.0 [facility] Comment on above: Performed By: #### 2 4323-8 #### ARIANA LONDONO ([id number]) [facility] ([facility]) [address] [place] [address] ALP [Catalytic activity/Vol] 158 U/L High 33-136 [facility] Comment on above: Performed By: #### 2 4323-8 #### ARIANA LONDONO ([id number]) [facility] ([facility]) [address] [place] [address] ALT With P-5'-P [Catalytic activity/Vol] 9 U/L Normal 7-45 [facility] Comment on above: Result Comment: Angelica ents treated with Sulfasalazine may generate falsely decreased results for ALT. Performed By: #### 2 4323-8 #### ARIANA LONDONO ([id number]) [facility] ([facility]) [address] [place] [address] 26847 Anion gap [Moles/Vol] 14 mmol/L Normal 10-20 [facility] Comment on above: Performed By: #### 2 4323-8 #### ARIANA LONDONO ([id number]) [facility] ([facility]) [address] [place] [address] 84037 AST With P-5'-P [Catalytic activity/Vol] 13 U/L Normal 9-39 [facility] Comment on above: Performed By: #### 2 4323-8 #### ARIANA LONDONO ([id number]) [facility] ([facility]) [address] [place] [address] Bilirubin [Mass/Vol] 0.6 mg/dL Normal 0.0-1.2 [facility] Comment on above: Performed By: #### 2 4323-8 #### ARIANA LONDONO ([id number]) [facility] ([facility]) [address] [place] [address] Calcium [Mass/Vol] 7.8 mg/dL Low 8.6-10.3 [facility] Comment on above: Performed By: #### 2 432-8 #### ARIANA LONDONO ([id number]) [facility] ([facility]) [address] [place] [address] Chloride [Moles/Vol] 97 mmol/L Low 98-107 [facility] Comment on above: Performed By: #### 2 432-8 #### ARIANA LONDONO ([id number]) [facility] ([facility]) [address] [place] [address] CO2 [Moles/Vol] 30 mmol/L Normal 21-32 [facility] Comment on above: Performed By: #### 2 4323-8 #### ARIANA LONDONO ([id number]) [facility] ([facility]) [address] [place] [address] Creatinine [Mass/Vol] 4.68 mg/dL High 0.50-1.05 [facility] Comment on above: Performed By: #### 2 4323-8 #### ARIANA LONDONO ([id number]) [facility] ([facility]) [address] [place] [address] Glomerular filtration rate 9 mL/min/1.73m*2 Low >60 [facility] Comment on above: Result Comment: Calc ulations of estimated GFR are performed using the 2020 CKD-EPI Study Refit equation without the race variable for the IDMS-Traceable creatinine methods. https://jasn.asnjournals.org/content//ASN.637862 0998 Performed By: #### 2 4323-8 #### ARIANA LONDONO ([id number]) [facility] ([facility]) [address] [place] [address] 50750 Glucose [Mass/Vol] 85 mg/dL Normal 74-99 [facility] Comment on above: Performed By: #### 2 4323-8 #### ARIANA LONDONO ([id number]) [facility] ([facility]) [address] [place] [address] 73183 Potassium [Moles/Vol] 4.4 mmol/L Normal 3.5-5.3 [facility] Comment on above: Performed By: #### 2 432-8 #### ARIANA LONDONO ([id number]) [facility] ([facility]) [address] [place] [address] 57459 Protein [Mass/Vol] 5.6 g/dL Low 6.4-8.2 [facility] Comment on above: Performed By: #### 2 432-8 #### ARIANA LONDONO (67084) [facility] ([facility]) [address] [place] [address] 98757 Sodium [Moles/Vol] 137 mmol/L Normal 136-145 [facility] Comment on above: Performed By: #### 2 4323-8 #### ARIANA LONDONO ([id number]) [facility] ([facility]) [address] [place] [address] 38237 Urea nitrogen [Mass/Vol] 39 mg/dL High 6-23 [facility] Comment on above: Performed By: #### 2 4323-8 #### ARIANA LONDONO (54922) [facility] ([facility]) [address] [place] [address] 48959 ESR Westergren method (Bld) [Velocity]on 08-13-2025 ESR (Bld) [Velocity] 66 mm/h High 0-30 [facility] Comment on above: Performed By: #### 2 4323-8 #### ARIANA LONDONO ([id number]) [facility] ([facility]) [address] [place] [address] Vancomycinon 08-13-2025 Vancomycin [Mass/Vol] 15.5 ug/mL Normal 5.0-20.0 [facility] Comment on above: Order Comment: Vanco mycin levels can be monitored according to area under the curve (AUC) or concentration (ug/mL). The preferred monitoring strategy is determined by the patient's renal function and indication for therapy.For AUC monitoring, a random vancomycin level should be interpreted in the context of AUC rather than the concentration at a single point in time.For concentration monitoring, a trough concentration drawn immediately prior to the next dose is preferred.Therapeutic ranges using concentration-guided results:Peak (all ages): 30.0-40.0 ug/mLTrough (all ages): 10.0-20.0 ug/mL Performed By: #### 2 4323-8 #### ARIANA LONDONO ([id number]) [facility] ([facility]) [address] [place] [address] C reactive proteinon 025 CRP [Mass/Vol] 14.74 mg/dL High <1.00 [facility] Comment on above: Performed By: #### 1 988-5 #### ARIANA LONDONO ([id number]) [facility] ([facility]) [address] [place] [address] CBC W Auto Differential pane l (Bld)on 08-06-2025 Basophils (Bld) [#/Vol] 0.05 x10*3/uL Normal 0.00-0.10 [facility] Comment on above: Performed By: #### 1 988-5 #### ARIANA LONDONO ([id number]) [facility] ([facility]) [address] [place] [address] Basophils/100 WBC (Bld) 0.4 % Normal 0.0-2.0 [facility] Comment on above: Performed By: #### 1 988-5 #### ARIANA LONDONO ([id number]) [facility] ([facility]) [address] [place] [address] Eosinophils (Bld) [#/Vol] 0.14 x10*3/uL Normal 0.00-0.40 [facility] Comment on above: Performed By: #### 1 988-5 #### ARIANA LONDONO ([id number]) [facility] ([facility]) [address] [place] [address] 05312 Eosinophils/100 WBC (Bld) 1.0 % Normal 0.0-6.0 [facility] Comment on above: Performed By: #### 1 988-5 #### ARIANA LONDONO ([id number]) [facility] ([facility]) [address] [place] [address] 20285 Erythrocyte distribution width (RBC) [Ratio] 17.9 % High 11.5-14.5 [facility] Comment on above: Performed By: #### 1 988-5 #### ARIANA LONDONO ([id number]) [facility] ([facility]) [address] [place], [place] [address] Hematocrit (Bld) [Volume fraction] 24.7 % Low 36.0-46.0 [facility] Comment on above: Performed By: #### 1 988-5 #### ARIANA LONDONO ([id number]) [facility] ([facility]) [address] [place] [address] 90818 Hemoglobin (Bld) [Mass/Vol] 7.8 g/dL Low 12.0-16.0 [facility] Comment on above: Performed By: #### 1 988-5 #### ARIANA LONDONO ([id number]) [facility] ([facility]) [address] [place] [address] 89767 Immature granulocytes (Bld) [#/Vol] 0.41 x10*3/uL Normal 0.00-0.50 [facility] Comment on above: Performed By: #### 1 988-5 #### ARIANA LONDONO ([id number]) [facility] ([facility]) [address] [place] [address] 27646 Immature granulocytes/100 WBC (Bld) 3.1 % High 0.0-0.9 [facility] Comment on above: Result Comment: Monica ture Granulocyte Count (IG) includes promyelocytes, myelocytes and metamyelocytes but does not include bands. Percent differential counts (%) should be interpreted in the context of the absolute cell counts (cells/UL). Performed By: #### 1 988-5 #### ARIANA LONDONO ([id number]) [facility] ([facility]) [address] [place] [address] 90435 Lymphocytes (Bld) [#/Vol] 1.73 x10*3/uL Normal 0.80-3.00 [facility] Comment on above: Performed By: #### 1 988-5 #### ARIANA LONDONO ([id number]) [facility] ([facility]) [address] [place] [address] 81808 Lymphocytes/100 WBC (Bld) 13.0 % Normal 13.0-44.0 [facility] Comment on above: Performed By: #### 1 988-5 #### ARIANA LONDONO (76179) [facility] ([facility]) [address] [place] [address] 62314 MCH (RBC) [Entitic mass] 27.8 pg Normal 26.0-34.0 [facility] Comment on above: Performed By: #### 1 988-5 #### ARIANA LONDONO (45461) [facility] ([facility]) [address] [place] [address] 97463 MCHC (RBC) [Mass/Vol] 31.6 g/dL Low 32.0-36.0 [facility] Comment on above: Performed By: #### 1 988-5 #### ARIANA LONDONO ([id number]) [facility] ([facility]) [address] [place] [address] 57388 MCV (RBC) [Entitic vol] 88 fL Normal 80-100 [facility] Comment on above: Performed By: #### 1 988-5 #### ARIANA LONDONO (90856) [facility] ([facility]) [address] [place] [address] 58962 Monocytes (Bld) [#/Vol] 1.07 x10*3/uL High 0.05-0.80 [facility] Comment on above: Performed By: #### 1 988-5 #### ARIANA LONDONO ([id number]) [facility] ([facility]) [address] [place] [address] 12535 Monocytes/100 WBC (Bld) 8.0 % Normal 2.0-10.0 [facility] Comment on above: Performed By: #### 1 988-5 #### ARIANA LONDONO ([id number]) [facility] ([facility]) [address] [place] [address] 24152 Neutrophils (Bld) [#/Vol] 9.94 x10*3/uL High 1.60-5.50 [facility] Comment on above: Result Comment: Perc ent differential counts (%) should be interpreted in the context of the absolute cell counts (cells/uL). Performed By: #### 1 988-5 #### ARIANA LONDONO ([id number]) [facility] ([facility]) [address] [place] [address] 31474 Neutrophils/100 WBC (Bld) 74.5 % Normal 40.0-80.0 [facility] Comment on above: Performed By: #### 1 988-5 #### ARIANA LONDONO ([id number]) [facility] ([facility]) [address] [place] [address] 10720 Nucleated RBC/100 WBC (Bld) [Ratio] 1.3 /100 WBCs High 0.0-0.0 [facility] Comment on above: Performed By: #### 1 988-5 #### ARIANA LONDONO ([id number]) [facility] ([facility]) [address] [place] [address] 92630 Platelets (Bld) [#/Vol] 387 x10*3/uL Normal 150-450 [facility] Comment on above: Performed By: #### 1 988-5 #### ARIANA LONDONO ([id number]) [facility] ([facility]) [address] [place] [address] 68036 RBC (Bld) [#/Vol] 2.81 x10*6/uL Low 4.00-5.20 [facility] Comment on above: Performed By: #### 1 988-5 #### ARIANA LONDONO ([id number]) [facility] ([facility]) [address] [place] [address] WBC (Bld) [#/Vol] 13.3 x10*3/uL High 4.4-11.3 [facility] Comment on above: Performed By: #### 1 988-5 #### ARIANA LONDONO ([id number]) [facility] ([facility]) [address] [place] [address] Comprehensive metabolic 2000 panelon 08-06-2025 Albumin BCP dye [Mass/Vol] 2.3 g/dL Low 3.4-5.0 [facility] Comment on above: Performed By: #### 2 4323-8 #### ARIANA LONDONO ([id number]) [facility] ([facility]) [address] [place] [address] ALP [Catalytic activity/Vol] 134 U/L Normal 33-136 [facility] Comment on above: Performed By: #### 2 4323-8 #### ARIANA LONDONO (25253) [facility] ([facility]) [address] [place] [address] ALT With P-5'-P [Catalytic activity/Vol] 5 U/L Low 7-45 [facility] Comment on above: Result Comment: Angelica ents treated with Sulfasalazine may generate falsely decreased results for ALT. Performed By: #### 2 4323-8 #### ARIANA LONDONO ([id number]) [facility] ([facility]) [address] [place] [address] 73533 Anion gap [Moles/Vol] 13 mmol/L Normal 10-20 [facility] Comment on above: Performed By: #### 2 4323-8 #### ARIANA LONDONO ([id number]) [facility] ([facility]) [address] [place] [address] AST With P-5'-P [Catalytic activity/Vol] 11 U/L Normal 9-39 [facility] Comment on above: Performed By: #### 2 4323-8 #### ARIANA LONDONO ([id number]) [facility] ([facility]) [address] [place] [address] Bilirubin [Mass/Vol] 0.5 mg/dL Normal 0.0-1.2 [facility] Comment on above: Performed By: #### 2 4323-8 #### ARIANA LONDONO ([id number]) [facility] ([facility]) [address] [place] [address] 23778 Calcium [Mass/Vol] 7.4 mg/dL Low 8.6-10.3 [facility] Comment on above: Performed By: #### 2 4323-8 #### ARIANA LONDONO ([id number]) [facility] ([facility]) [address] [place] [address] 10638 Chloride [Moles/Vol] 101 mmol/L Normal 98-107 [facility] Comment on above: Performed By: #### 2 4323-8 #### ARIANA LONDONO ([id number]) [facility] ([facility]) [address] [place] [address] CO2 [Moles/Vol] 29 mmol/L Normal 21-32 [facility] Comment on above: Performed By: #### 2 4323-8 #### ARIANA LONDONO ([id number]) [facility] ([facility]) [address] [place] [address] 09973 Creatinine [Mass/Vol] 3.19 mg/dL High 0.50-1.05 [facility] Comment on above: Performed By: #### 2 4323-8 #### ARIANA LONDONO ([id number]) [facility] ([facility]) [address] [place] [address] 03798 Glomerular filtration rate 15 mL/min/1.73m*2 Low >60 [facility] Comment on above: Result Comment: Calc ulations of estimated GFR are performed using the 2020 CKD-EPI Study Refit equation without the race variable for the IDMS-Traceable creatinine methods. https://jasn.asnjournals.org/content//ASN.306292 2106 Performed By: #### 2 4323-8 #### ARIANA LONDONO ([id number]) [facility] ([facility]) [address] [place] [address] 48696 Glucose [Mass/Vol] 97 mg/dL Normal 74-99 [facility] Comment on above: Performed By: #### 2 4323-8 #### ARIANA LONDONO ([id number]) [facility] ([facility]) [address] [place] [address] 28915 Potassium [Moles/Vol] 4.1 mmol/L Normal 3.5-5.3 [facility] Comment on above: Performed By: #### 2 432-8 #### ARIANA LONDONO ([id number]) [facility] ([facility]) [address] [place] [address] 20344 Protein [Mass/Vol] 5.3 g/dL Low 6.4-8.2 [facility] Comment on above: Performed By: #### 2 432-8 #### ARIANA LONDONO ([id number]) [facility] ([facility]) [address] [place] [address] 83034 Sodium [Moles/Vol] 139 mmol/L Normal 136-145 [facility] Comment on above: Performed By: #### 2 4323-8 #### ARIANA LONDONO ([id number]) [facility] ([facility]) [address] [place] [address] 50973 Urea nitrogen [Mass/Vol] 26 mg/dL High 6-23 [facility] Comment on above: Performed By: #### 2 4323-8 #### ARIANA LONDONO ([id number]) [facility] ([facility]) [address] [place] [address] 43833 ESR Westergren method (Bld) [Velocity]on 08-06-2025 ESR (Bld) [Velocity] 84 mm/h High 0-30 [facility] Comment on above: Performed By: #### 2 4323-8 #### ARIANA LONDONO ([id number]) [facility] ([facility]) [facility] [place] [address] Vancomycin^troughon 08-06-20 25 Vancomycin trough [Mass/Vol] 9.7 ug/mL Normal 5.0-20.0 [facility] Comment on above: Result Comment: Ther apeutic Ranges: Peak (all ages): 30.0-40.0 ug/mL Trough (all ages): 10.0-20.0 ug/mL Vancomycin trough concentrations drawn immediately prior to the next dose at steady-state are preferred for concentration-guided monitoring of patients treated with vancomycin. Reference: Am J Health-Syst Pharm. 2020; 77(11):835-864. Performed By: #### 2 4323-8 #### ARIANA LONDONO ([id number]) [facility] ([facility]) [facility] [place] [address] CALCIUM, IONIZEDon 5 CALCIUM IONIZED 4.5 mg/dL Normal 4.5-5.3 [facility] Comment on above: Performed By: #### 4 5190 ####[facility] [address] [place] [address] 90723 Milton Hinojosa M.D. [id number] CBCon 08-03-2025 AUTO NRBC 0.3 % Normal [facility] Comment on above: Performed By: #### 4 [id number] ####[facility] [address] [place], [place] [address] Milton Hinojosa M.D. [id number] AUTO NRBC ABS COUNT 0.04 K/mcL High 0.00-0.00 [facility] Comment on above: Performed By: #### 4 [id number] ####[facility] [address] [place] [address] 38515 Milton Hinojosa M.D. [id number] Erythrocyte distribution width (RBC) [Ratio] 15.8 % High 11.6-14.8 [facility] Comment on above: Performed By: #### 4 [id number] ####[facility] [address] [place], [place] [address] Milton Hinojosa M.D. [id number] Hematocrit (Bld) [Volume fraction] 24.3 % Low 36.0-46.0 [facility] Comment on above: Performed By: #### 4 [id number] ####[facility] [address] [place] [address] Milton Hinojosa M.D. [id number] Hemoglobin (Bld) [Mass/Vol] 7.5 g/dL Low 12.0-16.0 [facility] Comment on above: Performed By: #### 4 [id number] ####[facility] [address] [place] [address] Milton Hinojosa M.D. [id number] MCH (RBC) [Entitic mass] 27.8 pg Normal 26.0-34.0 [facility] Comment on above: Performed By: #### 4 [id number] ####[facility] [address] [place], [place] [address] Milton Hinojosa M.D. [id number] MCV (RBC) [Entitic vol] 90.0 fL Normal 80.0-100.0 [facility] Comment on above: Performed By: #### 4 [id number] ####[facility] [address] [place], [place] [address] Milton Hinojosa M.D. [id number] MEAN CORPUSCULAR HEMOGLOBIN CONC 30.9 g/dL Low 31.0-37.0 [facility] Comment on above: Performed By: #### 4 3598 ####[facility] [address] [place], [place] [address] Milton Hinojosa M.D. [id number] Platelet mean volume (Bld) [Entitic vol] 9.0 fL Low 9.4-12.4 [facility] Comment on above: Performed By: #### 4 [id number] ####[facility] [address] [place] [address] 34373 Milton Hinojosa M.D. [id number] Platelets (Bld) [#/Vol] 322 10*3/uL Normal 150-400 [facility] Comment on above: Performed By: #### 4 [id number] ####[facility] [address] [place] [address] 47172 Milton Hinojosa M.D. [id number] RBC (Bld) [#/Vol] 2.70 10*6/uL Low 4.00-5.20 [facility] Comment on above: Performed By: #### 4 [id number] ####[facility] [address] [place] [address] 38035 Milton Hinojosa M.D. [id number] WBC (Bld) [#/Vol] 12.47 10*3/uL High 4.50-11.00 [facility] Comment on above: Performed By: #### 4 [id number] ####[facility] [address] [place] [address] 61726 Milton Hinojosa M.D. [id number] COMPREHENSIVE METABOLIC PANE [facility] 08-03-2025 Albumin [Mass/Vol] 2.0 g/dL Low 3.2-5.2 [place] Comment on above: Order Comment: [facility] has implemented the eGFR calculation approach that does not have a coefficient for race that conforms to the NKF-ASN Task Force Recommendations. Performed By: #### 4 6126 ####[facility] [address] [place] [address] 11970 Milton Hinojosa M.D. [id number] ALP [Catalytic activity/Vol] 167 U/L High 40-150 [facility] Comment on above: Order Comment: [facility] has implemented the eGFR calculation approach that does not have a coefficient for race that conforms to the NKF-ASN Task Force Recommendations. Performed By: #### 4 6126 ####[facility] [address] [place], [place] [address] Milton Hinojoas M.D. [id number] ALT [Catalytic activity/Vol] 7 U/L Normal 0-35 U/L [facility] Comment on above: Order Comment: [facility] has implemented the eGFR calculation approach that does not have a coefficient for race that conforms to the NKF-ASN Task Force Recommendations. Performed By: #### 4 6126 ####[facility] [address] [place], [place] [address] Milton Hinojosa M.D. [id number] Anion gap [Moles/Vol] 12 mmol/L Normal 10-20 [facility] Comment on above: Order Comment: [facility] has implemented the eGFR calculation approach that does not have a coefficient for race that conforms to the NKF-ASN Task Force Recommendations. Performed By: #### 4 6126 ####[facility] [address] [place], [place] [address] Milton Hinojosa M.D. [id number] AST [Catalytic activity/Vol] 15 U/L Normal 0-35 U/L [facility] Comment on above: Order Comment: [facility] has implemented the eGFR calculation approach that does not have a coefficient for race that conforms to the NKF-ASN Task Force Recommendations. Performed By: #### 4 6126 ####[facility] [address] [place], [place] [address] Milton Hinojosa M.D. [id number] Bilirubin [Mass/Vol] 0.3 mg/dL Normal 0.0-1.3 [facility] Comment on above: Order Comment: [facility] has implemented the eGFR calculation approach that does not have a coefficient for race that conforms to the NKF-ASN Task Force Recommendations. Performed By: #### 4 6126 ####[facility] [address] [place], [place] [address] Milton Hinojosa M.D. [id number] Calcium [Mass/Vol] 8.0 mg/dL Low 8.4-10.2 [place] Comment on above: Order Comment: [facility] has implemented the eGFR calculation approach that does not have a coefficient for race that conforms to the NKF-ASN Task Force Recommendations. Performed By: #### 4 6126 ####[facility] [address] [place], [place] [address] Milton Hinojosa M.D. [id number] Chloride [Moles/Vol] 102 mmol/L Normal 98-108 [facility] Comment on above: Order Comment: [facility] has implemented the eGFR calculation approach that does not have a coefficient for race that conforms to the NKF-ASN Task Force Recommendations. Performed By: #### 4 6126 ####[facility] [address] [place], [place] [address] Milton Hinojosa M.D. [id number] Creatinine [Mass/Vol] 2.49 mg/dL High 0.60-1.20 [facility] Comment on above: Order Comment: [facility] has implemented the eGFR calculation approach that does not have a coefficient for race that conforms to the NKF-ASN Task Force Recommendations. Performed By: #### 4 6126 ####[facility] [address] [place] [address] 23365 Milton Hinojosa M.D. [id number] EGFR 20 mL/min/1.73 m2 Low >=60 [facility] Comment on above: Order Comment: [facility] has implemented the eGFR calculation approach that does not have a coefficient for race that conforms to the NKF-ASN Task Force Recommendations. Result Comment: Lalita mated GFR was calculated using the 2020 CKD-EPI creatinine equation. Performed By: #### 4 6126 ####[facility] [address] [place] [address] 23694 Milton Hinojosa M.D. [id number] Glucose [Mass/Vol] 71 mg/dL Normal 65-99 [place] Comment on above: Order Comment: [facility] has implemented the eGFR calculation approach that does not have a coefficient for race that conforms to the NKF-ASN Task Force Recommendations. Performed By: #### 4 6126 ####[facility] [address] [place] [address] 91101 Milton Hinojosa M.D. [id number] HCO3 (Bld) [Moles/Vol] 29 mmol/L Normal 21-32 [facility] Comment on above: Order Comment: [facility] has implemented the eGFR calculation approach that does not have a coefficient for race that conforms to the NKF-ASN Task Force Recommendations. Performed By: #### 4 6126 ####[facility] [address] [place] [address] 87619 Milton Hinojosa M.D. [id number] Potassium [Moles/Vol] 4.2 mmol/L Normal 3.5-5.1 [facility] Comment on above: Order Comment: [facility] has implemented the eGFR calculation approach that does not have a coefficient for race that conforms to the NKF-ASN Task Force Recommendations. Performed By: #### 4 6126 ####[facility] [address] [place] [address] 42906 Milton Hinojosa M.D. [id number] Protein [Mass/Vol] 5.2 g/dL Low 6.0-8.0 [place] Comment on above: Order Comment: [facility] has implemented the eGFR calculation approach that does not have a coefficient for race that conforms to the NKF-ASN Task Force Recommendations. Performed By: #### 4 6126 ####[facility] [address] [place] [address] 27419 Milton Hinojosa M.D. [id number] Sodium [Moles/Vol] 139 mmol/L Normal 135-145 [place] Comment on above: Order Comment: [facility] has implemented the eGFR calculation approach that does not have a coefficient for race that conforms to the NKF-ASN Task Force Recommendations. Performed By: #### 4 6126 ####[facility] [address] [place] [address] 29076 Milton Hinojosa M.D. [id number] Urea nitrogen [Mass/Vol] 19 mg/dL Normal 8-25 [facility] Comment on above: Order Comment: [facility] has implemented the eGFR calculation approach that does not have a coefficient for race that conforms to the NKF-ASN Task Force Recommendations. Performed By: #### 4 6126 ####[facility] [address] [place] [address] 96472 Milton Hinojosa M.D. [id number] Urea nitrogen/Creatinine [Mass ratio] 7.6 mg/mg Low 10.0-20.0 [facility] Comment on above: Order Comment: [facility] has implemented the eGFR calculation approach that does not have a coefficient for race that conforms to the NKF-ASN Task Force Recommendations. Performed By: #### 4 6126 ####[facility] [address] [place] [address] 61551 Milton Hinojosa M.D. [id number] Disch [place] 08-03-2025 Disch Summ Normal [facility] MAGNESIUM LEVELon 08-03-2025 Magnesium [Mass/Vol] 1.8 mg/dL Normal 1.6-2.4 [facility] Comment on above: Performed By: #### 4 6109 ####[facility] [address] [place] [address] 42120 Milton Hinojosa M.D. [id number] PHOSPHORUSon 08-03-2025 Phosphate [Mass/Vol] 3.4 mg/dL Normal 2.8-4.1 [facility] Comment on above: Performed By: #### 4 6299 ####[facility] [address] [place] [address] 54829 Milton Hinojosa M.D. [id number] VANCOMYCIN LEVEL, RANDOMon 0 08-03-2025 VANCOMYCIN RANDOM 16.6 mcg/mL Normal [place] Comment on above: Order Comment: As of 08/2022 vancomycin dosing for [facility] inpatients will be done by Bayesian dosing software rather than off traditional trough values. Please contact the site specific inpatient pharmacy before making dose changes off of trough values alone for admitted patients.No established reference range. Performed By: #### 4 6651 ####[facility] [address] [place], [place] [address] Milton Hinojosa M.D. [id number] APTT HEPARIN COVERAGEon 07-16 aPTT Coag (Bld) [Time] 53 s High 23-34 [facility] Comment on above: Order Comment: Thera peutic range for APTT's is 68 - 104 seconds Performed By: #### 4 6848 ####[facility] [address] [place], [place] [address] Milton Hinojosa M.D. [id number] CALCIUM, IONIZEDon CALCIUM IONIZED 4.5 mg/dL Normal 4.5-5.3 [facility] Comment on above: Performed By: #### 4 5190 ####[facility] [address] [place], [place] [address] Milton Hinojosa M.D. [id number] CBCon 08-02-2025 AUTO NRBC 1.6 % Normal [facility] Comment on above: Performed By: #### 4 [id number] ####[facility] [address] [place] [address] 06426 Milton Hinojosa M.D. [id number] AUTO NRBC ABS COUNT 0.21 K/mcL High 0.00-0.00 [facility] Comment on above: Performed By: #### 4 [id number] ####[facility] [address] [place], [place] [address] Milton Hinojosa M.D. [id number] Erythrocyte distribution width (RBC) [Ratio] 15.5 % High 11.6-14.8 [facility] Comment on above: Performed By: #### 4 [id number] ####[facility] [address] [place], [place] [address] Milton Hinojosa M.D. [id number] Hematocrit (Bld) [Volume fraction] 24.4 % Low 36.0-46.0 [facility] Comment on above: Performed By: #### 4 [id number] ####[facility] [address] [place] [address] Milton Hinojosa M.D. [id number] Hemoglobin (Bld) [Mass/Vol] 7.7 g/dL Low 12.0-16.0 [facility] Comment on above: Performed By: #### 4 [id number] ####[facility] [address] [place] [address] Milton Hinojosa M.D. [id number] MCH (RBC) [Entitic mass] 27.2 pg Normal 26.0-34.0 [facility] Comment on above: Performed By: #### 4 [id number] ####[facility] [address] [place], [place] [address]Zeina Hinojosa M.D. [id number] MCV (RBC) [Entitic vol] 86.2 fL Normal 80.0-100.0 [facility] Comment on above: Performed By: #### 4 [id number] ####[facility] [address] [place], [place] [address] Milton Hinojosa M.D. [id number] MEAN CORPUSCULAR HEMOGLOBIN CONC 31.6 g/dL Normal 31.0-37.0 [facility] Comment on above: Performed By: #### 4 5285 ####[facility] [address] [place], [place] [address] Milton Hinojosa M.D. [id number] Platelet mean volume (Bld) [Entitic vol] 8.9 fL Low 9.4-12.4 [facility] Comment on above: Performed By: #### 4 [id number] ####[facility] [address] [place] [address] 22229 Milton Hinojosa M.D. [id number] Platelets (Bld) [#/Vol] 316 10*3/uL Normal 150-400 [facility] Comment on above: Performed By: #### 4 [id number] ####[facility] [address] [place] [address] 91757 Milton Hinojosa M.D. [id number] RBC (Bld) [#/Vol] 2.83 10*6/uL Low 4.00-5.20 [facility] Comment on above: Performed By: #### 4 [id number] ####[facility] [address] [place] [address] 40124 Milton Hinojosa M.D. [id number] WBC (Bld) [#/Vol] 12.90 10*3/uL High 4.50-11.00 [facility] Comment on above: Performed By: #### 4 [id number] ####[facility] [address] [place] [address] 35409 Milton Hinojosa M.D. [id number] COMPREHENSIVE METABOLIC PANE [place] 08-02-2025 Albumin [Mass/Vol] 2.1 g/dL Low 3.2-5.2 [place] Comment on above: Order Comment: [facility] has implemented the eGFR calculation approach that does not have a coefficient for race that conforms to the NKF-ASN Task Force Recommendations. Performed By: #### 4 6126 ####[facility] [address] [place] [address] 69638Zeina Hinojosa M.D. [id number] ALP [Catalytic activity/Vol] 176 U/L High 40-150 [facility] Comment on above: Order Comment: [facility] has implemented the eGFR calculation approach that does not have a coefficient for race that conforms to the NKF-ASN Task Force Recommendations. Performed By: #### 4 6126 ####[facility] [address] [place], [place] [address] Milton Hinojosa M.D. [id number] ALT [Catalytic activity/Vol] 6 U/L Normal 0-35 U/L [facility] Comment on above: Order Comment: [facility] has implemented the eGFR calculation approach that does not have a coefficient for race that conforms to the NKF-ASN Task Force Recommendations. Performed By: #### 4 6126 ####[facility] [address] [place], [place] [address] Milton Hinojosa M.D. [id number] Anion gap [Moles/Vol] 13 mmol/L Normal 10-20 [facility] Comment on above: Order Comment: [facility] has implemented the eGFR calculation approach that does not have a coefficient for race that conforms to the NKF-ASN Task Force Recommendations. Performed By: #### 4 6126 ####[facility] [address] [place], [place] [address] Milton Hinojosa M.D. [id number] AST [Catalytic activity/Vol] 17 U/L Normal 0-35 U/L [facility] Comment on above: Order Comment: [facility] has implemented the eGFR calculation approach that does not have a coefficient for race that conforms to the NKF-ASN Task Force Recommendations. Performed By: #### 4 6126 ####[facility] [address] [place] [address] 66582 Milton Hinojosa M.D. [id number] Bilirubin [Mass/Vol] 0.3 mg/dL Normal 0.0-1.3 [facility] Comment on above: Order Comment: [facility] has implemented the eGFR calculation approach that does not have a coefficient for race that conforms to the NKF-ASN Task Force Recommendations. Performed By: #### 4 6126 ####[facility] [address] [place] [address] 45003 Milton Hinojosa M.D. [id number] Calcium [Mass/Vol] 7.7 mg/dL Low 8.4-10.2 [place] Comment on above: Order Comment: [facility] has implemented the eGFR calculation approach that does not have a coefficient for race that conforms to the NKF-ASN Task Force Recommendations. Performed By: #### 4 6126 ####[facility] [address] [place] [address] 15894 Milton Hinojosa M.D. [id number] Chloride [Moles/Vol] 100 mmol/L Normal 98-108 [facility] Comment on above: Order Comment: [facility] has implemented the eGFR calculation approach that does not have a coefficient for race that conforms to the NKF-ASN Task Force Recommendations. Performed By: #### 4 6126 ####[facility] [address] [place], [place] [address] Milton Hinojosa M.D. [id number] Creatinine [Mass/Vol] 1.83 mg/dL High 0.60-1.20 [facility] Comment on above: Order Comment: [facility] has implemented the eGFR calculation approach that does not have a coefficient for race that conforms to the NKF-ASN Task Force Recommendations. Performed By: #### 4 6126 ####[facility] [address] [place] [address] 76751 Milton Hinojosa M.D. [id number] EGFR 29 mL/min/1.73 m2 Low >=60 [facility] Comment on above: Order Comment: [facility] has implemented the eGFR calculation approach that does not have a coefficient for race that conforms to the NKF-ASN Task Force Recommendations. Result Comment: Lalita mated GFR was calculated using the 2020 CKD-EPI creatinine equation. Performed By: #### 4 6126 ####[facility] [address] [place] [address] 60423 Milton Hinojosa M.D. [id number] Glucose [Mass/Vol] 94 mg/dL Normal 65-99 [place] Comment on above: Order Comment: [facility] has implemented the eGFR calculation approach that does not have a coefficient for race that conforms to the NKF-ASN Task Force Recommendations. Performed By: #### 4 6126 ####[facility] [address] [place], [place] [address] Milton Hinojosa M.D. [id number] HCO3 (Bld) [Moles/Vol] 28 mmol/L Normal 21-32 [facility] Comment on above: Order Comment: [facility] has implemented the eGFR calculation approach that does not have a coefficient for race that conforms to the NKF-ASN Task Force Recommendations. Performed By: #### 4 6126 ####[facility] [address] [place], [place] [address] Milton Hinojosa M.D. [id number] Potassium [Moles/Vol] 3.9 mmol/L Normal 3.5-5.1 [facility] Comment on above: Order Comment: [facility] has implemented the eGFR calculation approach that does not have a coefficient for race that conforms to the NKF-ASN Task Force Recommendations. Performed By: #### 4 6126 ####[facility] [address] [place], [place] [address] Milton Hinojosa M.D. [id number] Protein [Mass/Vol] 5.4 g/dL Low 6.0-8.0 [place] Comment on above: Order Comment: [facility] has implemented the eGFR calculation approach that does not have a coefficient for race that conforms to the NKF-ASN Task Force Recommendations. Performed By: #### 4 6126 ####[facility] [address] [place], [place] [address] Milton Hinojosa M.D. [id number] Sodium [Moles/Vol] 137 mmol/L Normal 135-145 [place] Comment on above: Order Comment: [facility] has implemented the eGFR calculation approach that does not have a coefficient for race that conforms to the NKF-ASN Task Force Recommendations. Performed By: #### 4 6126 ####[facility] [address] [place], [place] [address] Milton Hinojosa M.D. [id number] Urea nitrogen [Mass/Vol] 12 mg/dL Normal 8-25 [facility] Comment on above: Order Comment: [facility] has implemented the eGFR calculation approach that does not have a coefficient for race that conforms to the NKF-ASN Task Force Recommendations. Performed By: #### 4 6126 ####[facility] [address] [place], [place] [address] Milton Hinojosa M.D. [id number] Urea nitrogen/Creatinine [Mass ratio] 6.6 mg/mg Low 10.0-20.0 [facility] Comment on above: Order Comment: [facility] has implemented the eGFR calculation approach that does not have a coefficient for race that conforms to the NKF-ASN Task Force Recommendations. Performed By: #### 4 6126 ####[facility] [address] [place], [place] [address] Milton Hinojosa M.D. [id number] MAGNESIUM LEVELon 08-02-2025 Magnesium [Mass/Vol] 1.7 mg/dL Normal 1.6-2.4 [facility] Comment on above: Performed By: #### 4 6109 ####[facility] [address] [place] [address] 43136 Milton Hinojosa M.D. [id number] PHOSPHORUSon 08-02-2025 Phosphate [Mass/Vol] 2.8 mg/dL Normal 2.8-4.1 [facility] Comment on above: Performed By: #### 4 6299 ####[facility] [address] [place], [place] [address] Milton Hinojosa M.D. [id number] POC GLUCOSE - [facility] 025 Glucose [Mass/Vol] 110 mg/dL High [address] [place] [address] Comment on above: Performed By: #### 4 6932 ####[facility] [address] [place] [address] [id number] [facility] Glucose [Mass/Vol] 115 mg/dL High [address] [place] [address] Comment on above: Performed By: #### 4 6932 ####[facility] [address] [place] [address] [id number] [facility] Glucose [Mass/Vol] 121 mg/dL High [address] [place] [address] Comment on above: Performed By: #### 4 6932 ####[facility] [address] [place] [address] [id number] [facility] Glucose [Mass/Vol] 96 mg/dL Normal [address] [place] [address] Comment on above: Performed By: #### 4 6932 ####[facility] [address] [place] [address] [id number] [facility] APTT HEPARIN COVERAGEon 07-16 aPTT Coag (Bld) [Time] 59 s High 2334 [facility] Comment on above: Order Comment: Thera peutic range for APTT's is 68 - 104 secondsResults checked. Performed By: #### 4 [id number] ####[facility] [address] [place] [address] Milton Hinojosa M.D. [id number] aPTT Coag (Bld) [Time] 166 s Off scale high 2334 [facility] Comment on above: Order Comment: Thera peutic range for APTT's is 68 - 104 secondsResults checked. Performed By: #### 4 [id number] ####[facility] [address] [place] [address] Milton Hinojosa M.D. [id number] aPTT Coag (Bld) [Time] 153 s Off scale high 23-34 [facility] Comment on above: Order Comment: Thera peutic range for APTT's is 68 - 104 secondsResults checked. Performed By: #### 4 [id number] ####[facility] [address] [place], [place] [address] Milton Hinojosa M.D. [id number] CALCIUM, IONIZEDon CALCIUM IONIZED 4.3 mg/dL Low 4.5-5.3 [facility] Comment on above: Performed By: #### 4 5190 ####[facility] [address] [place] [address] Milton Hinojosa M.D. [id number] CBCon 08-01-2025 AUTO NRBC 0.3 % Normal [facility] Comment on above: Performed By: #### 4 [id number] ####[facility] [address] [place], [place] [address] Milton Hinoojsa M.D. [id number] AUTO NRBC ABS COUNT 0.03 K/mcL High 0.00-0.00 [facility] Comment on above: Performed By: #### 4 [id number] ####[facility] [address] [place], [place] [address] Milton Hinojosa M.D. [id number] Erythrocyte distribution width (RBC) [Ratio] 15.5 % High 11.6-14.8 [facility] Comment on above: Performed By: #### 4 [id number] ####[facility] [address] [place], [place] [address] Milton Hinojosa M.D. [id number] Hematocrit (Bld) [Volume fraction] 24.2 % Low 36.0-46.0 [facility] Comment on above: Performed By: #### 4 [id number] ####[facility] [address] [place], [place] [address] Milton Hinojosa M.D. [id number] Hemoglobin (Bld) [Mass/Vol] 7.3 g/dL Low 12.0-16.0 [facility] Comment on above: Performed By: #### 4 [id number] ####[facility] [address] [place] [address] Milton Hinojosa M.D. [id number] MCH (RBC) [Entitic mass] 26.6 pg Normal 26.0-34.0 [facility] Comment on above: Performed By: #### 4 [id number] ####[facility] [address] [place] [address] Milton Hinojosa M.D. [id number] MCV (RBC) [Entitic vol] 88.3 fL Normal 80.0-100.0 [facility] Comment on above: Performed By: #### 4 [id number] ####[facility] [address] [place] [address] Milton Hinojosa M.D. [id number] MEAN CORPUSCULAR HEMOGLOBIN CONC 30.2 g/dL Low 31.0-37.0 [facility] Comment on above: Performed By: #### 4 [id number] ####[facility] [address] [place], [place] [address]Zeina Hinojosa M.D. [id number] Platelet mean volume (Bld) [Entitic vol] 8.9 fL Low 9.4-12.4 [facility] Comment on above: Performed By: #### 4 [id number] ####[facility] [address] [place] [address] Milton Hinojosa M.D. [id number] Platelets (Bld) [#/Vol] 340 10*3/uL Normal 150-400 [facility] Comment on above: Performed By: #### 4 [id number] ####[facility] [address] [place] [address] Milton Hinojosa M.D. [id number] RBC (Bld) [#/Vol] 2.74 10*6/uL Low 4.00-5.20 [facility] Comment on above: Performed By: #### 4 [id number] ####[facility] [address] [place] [address] Milton Hinojosa M.D. [id number] WBC (Bld) [#/Vol] 9.97 10*3/uL Normal 4.50-11.00 [facility] Comment on above: Performed By: #### 4 [id number] ####[facility] [address] [place] [address] Milton Hinojosa M.D. [id number] COMPREHENSIVE METABOLIC PANE [facility] 08-01-2025 Albumin [Mass/Vol] 2.1 g/dL Low 3.2-5.2 [place] Comment on above: Order Comment: [facility] has implemented the eGFR calculation approach that does not have a coefficient for race that conforms to the NKF-ASN Task Force Recommendations. Performed By: #### 4 6126 ####[facility] [address] [place] [address] Milton Hinojosa M.D. [id number] ALP [Catalytic activity/Vol] 173 U/L High 40-150 [facility] Comment on above: Order Comment: [facility] has implemented the eGFR calculation approach that does not have a coefficient for race that conforms to the NKF-ASN Task Force Recommendations. Performed By: #### 4 6126 ####[facility] [address] [place] [address] Milton Hinojosa M.D. [id number] ALT [Catalytic activity/Vol] 8 U/L Normal 0-35 U/L [facility] Comment on above: Order Comment: [facility] has implemented the eGFR calculation approach that does not have a coefficient for race that conforms to the NKF-ASN Task Force Recommendations. Performed By: #### 4 6126 ####[facility] [address] [place] [address] Milton Hinojosa M.D. [id number] Anion gap [Moles/Vol] 16 mmol/L Normal 10-20 [facility] Comment on above: Order Comment: [facility] has implemented the eGFR calculation approach that does not have a coefficient for race that conforms to the NKF-ASN Task Force Recommendations. Performed By: #### 4 6126 ####[facility] [address] [place], [place] [address] Milton Hinojosa M.D. [id number] AST [Catalytic activity/Vol] 20 U/L Normal 0-35 U/L [facility] Comment on above: Order Comment: [facility] has implemented the eGFR calculation approach that does not have a coefficient for race that conforms to the NKF-ASN Task Force Recommendations. Result Comment: Slig htly Hemolyzed Performed By: #### 4 6126 ####[facility] [address] [place] [address] Milton Hinojosa M.D. [id number] Bilirubin [Mass/Vol] 0.3 mg/dL Normal 0.0-1.3 [facility] Comment on above: Order Comment: [facility] has implemented the eGFR calculation approach that does not have a coefficient for race that conforms to the NKF-ASN Task Force Recommendations. Performed By: #### 4 6126 ####[facility] [address] [place], [place] [address] Milton Hinojosa M.D. [id number] Calcium [Mass/Vol] 7.7 mg/dL Low 8.4-10.2 [place] Comment on above: Order Comment: [facility] has implemented the eGFR calculation approach that does not have a coefficient for race that conforms to the NKF-ASN Task Force Recommendations. Performed By: #### 4 6126 ####[facility] [address] [place], [place] [address] Milton Hinojosa M.D. [id number] Chloride [Moles/Vol] 101 mmol/L Normal 98-108 [facility] Comment on above: Order Comment: [facility] has implemented the eGFR calculation approach that does not have a coefficient for race that conforms to the NKF-ASN Task Force Recommendations. Performed By: #### 4 6126 ####[facility] [address] [place] [address] Milton Hinojosa M.D. [id number] Creatinine [Mass/Vol] 2.69 mg/dL High 0.60-1.20 [facility] Comment on above: Order Comment: [facility] has implemented the eGFR calculation approach that does not have a coefficient for race that conforms to the NKF-ASN Task Force Recommendations. Performed By: #### 4 6126 ####[facility] [address] [place], [place] [address] Milton Hinojosa M.D. [id number] EGFR 18 mL/min/1.73 m2 Low >=60 [facility] Comment on above: Order Comment: [facility] has implemented the eGFR calculation approach that does not have a coefficient for race that conforms to the NKF-ASN Task Force Recommendations. Result Comment: Lalita mated GFR was calculated using the 2020 CKD-EPI creatinine equation. Performed By: #### 4 6126 ####[facility] [address] [place] [address] Milton Hinojosa M.D. [id number] Glucose [Mass/Vol] 101 mg/dL High 65-99 [place] Comment on above: Order Comment: [facility] has implemented the eGFR calculation approach that does not have a coefficient for race that conforms to the NKF-ASN Task Force Recommendations. Performed By: #### 4 6126 ####[facility] [address] [place] [address] Milton Hinojosa M.D. [id number] HCO3 (Bld) [Moles/Vol] 27 mmol/L Normal 21-32 [facility] Comment on above: Order Comment: [facility] has implemented the eGFR calculation approach that does not have a coefficient for race that conforms to the NKF-ASN Task Force Recommendations. Performed By: #### 4 6126 ####[facility] [address] [place], [place] [address] Milton Hinojosa M.D. [id number] Potassium [Moles/Vol] 4.2 mmol/L Normal 3.5-5.1 [facility] Comment on above: Order Comment: [facility] has implemented the eGFR calculation approach that does not have a coefficient for race that conforms to the NKF-ASN Task Force Recommendations. Result Comment: Slig htly Hemolyzed Performed By: #### 4 6126 ####[facility] [address] [place], [place] [address] Milton Hinojosa M.D. [id number] Protein [Mass/Vol] 5.4 g/dL Low 6.0-8.0 [place] Comment on above: Order Comment: [facility] has implemented the eGFR calculation approach that does not have a coefficient for race that conforms to the NKF-ASN Task Force Recommendations. Performed By: #### 4 6126 ####[facility] [address] [place], [place] [address] Milton Hinojosa M.D. [id number] Sodium [Moles/Vol] 140 mmol/L Normal 135-145 [place] Comment on above: Order Comment: [facility] has implemented the eGFR calculation approach that does not have a coefficient for race that conforms to the NKF-ASN Task Force Recommendations. Performed By: #### 4 6126 ####[facility] [address] [place], [place] [address] Milton Hinojosa M.D. [id number] Urea nitrogen [Mass/Vol] 20 mg/dL Normal 8-25 [facility] Comment on above: Order Comment: [facility] has implemented the eGFR calculation approach that does not have a coefficient for race that conforms to the NKF-ASN Task Force Recommendations. Performed By: #### 4 6126 ####[facility] [address] [place] [address] Milton Hinojosa M.D. [id number] Urea nitrogen/Creatinine [Mass ratio] 7.4 mg/mg Low 10.0-20.0 [facility] Comment on above: Order Comment: [facility] has implemented the eGFR calculation approach that does not have a coefficient for race that conforms to the NKF-ASN Task Force Recommendations. Performed By: #### 4 6126 ####[facility] [address] [place] [address] Milton Hinojosa M.D. [id number] MAGNESIUM LEVELon 08-01-2025 Magnesium [Mass/Vol] 2.1 mg/dL Normal 1.6-2.4 [facility] Comment on above: Performed By: #### 4 6109 ####[facility] [address] [place], [place] [address] Milton Hinojosa M.D. [id number] PHOSPHORUSon 08-01-2025 Phosphate [Mass/Vol] 6.0 mg/dL High 2.8-4.1 [facility] Comment on above: Performed By: #### 4 6299 ####[facility] [address] [place] [address] Milton Hinojosa M.D. [id number] POC GL[facility] Glucose [Mass/Vol] 116 mg/dL High 65-99 [place] Comment on above: Performed By: #### 4 6986 ####[facility] [address] [place] [address] [id number] [facility] Glucose [Mass/Vol] 100 mg/dL High 65-99 [place] Comment on above: Performed By: #### 4 2393 ####[facility] [address] [place] [address] [id number] [facility] Glucose [Mass/Vol] 76 mg/dL Normal 65-99 [place] Comment on above: Performed By: #### 4 6932 ####[facility] [address] [place] [address] [id number] [facility] Glucose [Mass/Vol] 101 mg/dL High 65-99 [place] Comment on above: Performed By: #### 4 6932 ####[facility] [address] [place] [address] [id number] [facility] VANCOMYCIN LEVEL, RANDOMon 0 08-01-2025 VANCOMYCIN RANDOM 18.5 mcg/mL Normal [place] Comment on above: Order Comment: As of 08/2022 vancomycin dosing for [facility] inpatients will be done by Bayesian dosing software rather than off traditional trough values. Please contact the site specific inpatient pharmacy before making dose changes off of trough values alone for admitted patients.No established reference range. Performed By: #### 4 6651 ####[facility] [address] [place] [address] Milton Hinojosa M.D. [id number] APTT HEPARIN COVERAGEon 07-16 aPTT Coag (Bld) [Time] 198 s Off scale high 23-34 [facility] Comment on above: Order Comment: Thera peutic range for APTT's is 68 - 104 secondsResults called and readback verified by:[id number] Performed By: #### 4 6848 ####[facility] [address] [place], [place] [address] Milton Hinojosa M.D. [id number] CALCIUM, IONIZEDon CALCIUM IONIZED 4.6 mg/dL Normal 4.5-5.3 [facility] Comment on above: Performed By: #### 4 5190 ####[facility] [address] [place] [address] Milton Hinojosa M.D. [id number] CBCon 07-31-2025 AUTO NRBC 0.3 % Normal [facility] Comment on above: Performed By: #### 4 [id number] ####[facility] [address] [place] [address] Milton Hinojosa M.D. [id number] AUTO NRBC ABS COUNT 0.03 K/mcL High 0.00-0.00 [facility] Comment on above: Performed By: #### 4 [id number] ####[facility] [address] [place], [place] [address] Milton Hinojosa M.D. [id number] Erythrocyte distribution width (RBC) [Ratio] 15.1 % High 11.6-14.8 [facility] Comment on above: Performed By: #### 4 [id number] ####[facility] [address] [place], [place] [address] Milton Hinojosa M.D. [id number] Hematocrit (Bld) [Volume fraction] 24.9 % Low 36.0-46.0 [facility] Comment on above: Performed By: #### 4 [id number] ####[facility] [address] [place], [place] [address] Milton Hinojosa M.D. [id number] Hemoglobin (Bld) [Mass/Vol] 7.6 g/dL Low 12.0-16.0 [facility] Comment on above: Performed By: #### 4 [id number] ####[facility] [address] [place], [place] [address] Milton Hinojosa M.D. [id number] MCH (RBC) [Entitic mass] 26.9 pg Normal 26.0-34.0 [facility] Comment on above: Performed By: #### 4 [id number] ####[facility] [address] [place], [place] [address] Milton Hinojosa M.D. [id number] MCV (RBC) [Entitic vol] 88.0 fL Normal 80.0-100.0 [facility] Comment on above: Performed By: #### 4 [id number] ####[facility] [address] [place], [place] [address] Milton Hinojosa M.D. [id number] MEAN CORPUSCULAR HEMOGLOBIN CONC 30.5 g/dL Low 31.0-37.0 [facility] Comment on above: Performed By: #### 4 [id number] ####[facility] [address] [place] [address] Milton Hinojosa M.D. [id number] Platelet mean volume (Bld) [Entitic vol] 9.3 fL Low 9.4-12.4 [facility] Comment on above: Performed By: #### 4 [id number] ####[facility] [address] [place], [place] [address] Milton Hinojosa M.D. [id number] Platelets (Bld) [#/Vol] 341 10*3/uL Normal 150-400 [facility] Comment on above: Performed By: #### 4 [id number] ####[facility] [address] [place], [place] [address] Milton Hinojosa M.D. [id number] RBC (Bld) [#/Vol] 2.83 10*6/uL Low 4.00-5.20 [facility] Comment on above: Performed By: #### 4 [id number] ####[facility] [address] [place] [address] Milton Hinojosa M.D. [id number] WBC (Bld) [#/Vol] 8.78 10*3/uL Normal 4.50-11.00 [facility] Comment on above: Performed By: #### 4 [id number] ####[facility] [address] [place] [address] Milton Hinojosa M.D. [id number] COMPREHENSIVE METABOLIC PANE [facility] 07-31-2025 Albumin [Mass/Vol] 2.2 g/dL Low 3.2-5.2 [place] Comment on above: Order Comment: [facility] has implemented the eGFR calculation approach that does not have a coefficient for race that conforms to the NKF-ASN Task Force Recommendations. Performed By: #### 4 6126 ####[facility] [address] [place], [place] [address] Milton Hinojosa M.D. [id number] ALP [Catalytic activity/Vol] 166 U/L High 40-150 [facility] Comment on above: Order Comment: [facility] has implemented the eGFR calculation approach that does not have a coefficient for race that conforms to the NKF-ASN Task Force Recommendations. Performed By: #### 4 6126 ####[facility] [address] [place], [place] [address] Milton Hinojosa M.D. [id number] ALT [Catalytic activity/Vol] 8 U/L Normal 0-35 U/L [facility] Comment on above: Order Comment: [facility] has implemented the eGFR calculation approach that does not have a coefficient for race that conforms to the NKF-ASN Task Force Recommendations. Performed By: #### 4 6126 ####[facility] [address] [place] [address] 13774 Milton Hinojosa M.D. [id number] Anion gap [Moles/Vol] 14 mmol/L Normal 10-20 [facility] Comment on above: Order Comment: [facility] has implemented the eGFR calculation approach that does not have a coefficient for race that conforms to the NKF-ASN Task Force Recommendations. Performed By: #### 4 6126 ####[facility] [address] [place], [place] [address] Milton Hinojosa M.D. [id number] AST [Catalytic activity/Vol] 15 U/L Normal 0-35 U/L [facility] Comment on above: Order Comment: [facility] has implemented the eGFR calculation approach that does not have a coefficient for race that conforms to the NKF-ASN Task Force Recommendations. Performed By: #### 4 6126 ####[facility] [address] [place] [address] 42249 Milton Hinojosa M.D. [id number] Bilirubin [Mass/Vol] 0.3 mg/dL Normal 0.0-1.3 [facility] Comment on above: Order Comment: [facility] has implemented the eGFR calculation approach that does not have a coefficient for race that conforms to the NKF-ASN Task Force Recommendations. Performed By: #### 4 6126 ####[facility] [address] [place] [address] 79950 Milton Hinojosa M.D. [id number] Calcium [Mass/Vol] 8.1 mg/dL Low 8.4-10.2 [place] Comment on above: Order Comment: [facility] has implemented the eGFR calculation approach that does not have a coefficient for race that conforms to the NKF-ASN Task Force Recommendations. Performed By: #### 4 6126 ####[facility] [address] [place] [address] 02362 Milton Hinojosa M.D. [id number] Chloride [Moles/Vol] 102 mmol/L Normal 98-108 [facility] Comment on above: Order Comment: [facility] has implemented the eGFR calculation approach that does not have a coefficient for race that conforms to the NKF-ASN Task Force Recommendations. Performed By: #### 4 6126 ####[facility] [address] [place] [address] 44670 Milton Hinojosa M.D. [id number] Creatinine [Mass/Vol] 2.33 mg/dL High 0.60-1.20 [facility] Comment on above: Order Comment: [facility] has implemented the eGFR calculation approach that does not have a coefficient for race that conforms to the NKF-ASN Task Force Recommendations. Performed By: #### 4 6126 ####[facility] [address] [place] [address] Milton Hinojosa M.D. [id number] EGFR 21 mL/min/1.73 m2 Low >=60 [facility] Comment on above: Order Comment: [facility] has implemented the eGFR calculation approach that does not have a coefficient for race that conforms to the NKF-ASN Task Force Recommendations. Result Comment: Lalita mated GFR was calculated using the 2020 CKD-EPI creatinine equation. Performed By: #### 4 6126 ####[facility] [address] [place] [address] 10466 Milton Hinojosa M.D. [id number] Glucose [Mass/Vol] 85 mg/dL Normal 65-99 [place] Comment on above: Order Comment: [facility] has implemented the eGFR calculation approach that does not have a coefficient for race that conforms to the NKF-ASN Task Force Recommendations. Performed By: #### 4 6126 ####[facility] [address] [place] [address] 35288 Milton Hinojoas M.D. [id number] HCO3 (Bld) [Moles/Vol] 27 mmol/L Normal 21-32 [facility] Comment on above: Order Comment: [facility] has implemented the eGFR calculation approach that does not have a coefficient for race that conforms to the NKF-ASN Task Force Recommendations. Performed By: #### 4 6126 ####[facility] [address] [place] [address] 487[address] Milton Hinojosa M.D. [id number] Potassium [Moles/Vol] 4.3 mmol/L Normal 3.5-5.1 [facility] Comment on above: Order Comment: [facility] has implemented the eGFR calculation approach that does not have a coefficient for race that conforms to the NKF-ASN Task Force Recommendations. Performed By: #### 4 6126 ####[facility] [address] [place] [address] 12351 Milton Hinojosa M.D. [id number] Protein [Mass/Vol] 5.6 g/dL Low 6.0-8.0 [place] Comment on above: Order Comment: [facility] has implemented the eGFR calculation approach that does not have a coefficient for race that conforms to the NKF-ASN Task Force Recommendations. Performed By: #### 4 6126 ####[facility] [address] [place] [address] 88008 Milton Hinojosa M.D. [id number] Sodium [Moles/Vol] 139 mmol/L Normal 135-145 [place] Comment on above: Order Comment: [facility] has implemented the eGFR calculation approach that does not have a coefficient for race that conforms to the NKF-ASN Task Force Recommendations. Performed By: #### 4 6126 ####[facility] [address] [place] [address] 81451 Milton Hinojosa M.D. [id number] Urea nitrogen [Mass/Vol] 19 mg/dL Normal 8-25 [facility] Comment on above: Order Comment: [facility] has implemented the eGFR calculation approach that does not have a coefficient for race that conforms to the NKF-ASN Task Force Recommendations. Performed By: #### 4 6126 ####[facility] [address] [place] [address] 26470 Milton Hinojosa M.D. [id number] Urea nitrogen/Creatinine [Mass ratio] 8.2 mg/mg Low 10.0-20.0 [facility] Comment on above: Order Comment: [facility] has implemented the eGFR calculation approach that does not have a coefficient for race that conforms to the NKF-ASN Task Force Recommendations. Performed By: #### 4 6126 ####[facility] [address] [place] [address] 68359 Milton Hinojosa M.D. [id number] MAGNESIUM LEVELon 07-31-2025 Magnesium [Mass/Vol] 2.3 mg/dL Normal 1.6-2.4 [facility] Comment on above: Performed By: #### 4 6109 ####[facility] [address] [place] [address] Milton Hinojosa M.D. [id number] Magnesium [Mass/Vol] 1.9 mg/dL Normal 1.6-2.4 [facility] Comment on above: Performed By: #### 4 6109 ####[facility] [address] [place] [address] Milton Hinojosa M.D. [id number] PHOSPHORUSon 07-31-2025 Phosphate [Mass/Vol] 2.3 mg/dL Low 2.8-4.1 [facility] Comment on above: Performed By: #### 4 6299 ####[facility] [address] [place] [address] Milton Hinojosa M.D. [id number] POC GLUCOSE - [facility] 025 Glucose [Mass/Vol] 91 mg/dL Normal 65-99 [place] Comment on above: Performed By: #### 4 5265 ####[facility] [address] [place] [address] [id number] [facility] Glucose [Mass/Vol] 96 mg/dL Normal 65-99 [place] Comment on above: Performed By: #### 4 3833 ####[facility] [address] [place] [address] [id number] [facility] Glucose [Mass/Vol] 92 mg/dL Normal 65-99 [place] Comment on above: Performed By: #### 4 3060 ####[facility] [address] [place] [address] [id number] [facility] Glucose [Mass/Vol] 82 mg/dL Normal 65-99 [place] Comment on above: Performed By: #### 4 2203 ####[facility] [address] [place] [address] [id number] [facility] CALCIUM, IONIZEDon CALCIUM IONIZED 4.4 mg/dL Low 4.5-5.3 [facility] Comment on above: Performed By: #### 4 5190 ####[facility] [address] [place] [address] Milton Hinojosa M.D. [id number] CBCon 07-30-2025 AUTO NRBC 0.0 % Normal [facility] Comment on above: Performed By: #### 4 5218 ####[facility] [address] [place] [address] Milton Hinojosa M.D. [id number] AUTO NRBC ABS COUNT 0.00 K/mcL Normal 0.00-0.00 [facility] Comment on above: Performed By: #### 4 [id number] ####[facility] [address] [place] [address] Milton Hinojosa M.D. [id number] Erythrocyte distribution width (RBC) [Ratio] 15.5 % High 11.6-14.8 [facility] Comment on above: Performed By: #### 4 5218 ####[facility] [address] [place], [place] [address] Milton Hinojosa M.D. [id number] Hematocrit (Bld) [Volume fraction] 24.7 % Low 36.0-46.0 [facility] Comment on above: Performed By: #### 4 5218 ####[facility] [address] [place], [place] [address] Milton Hinojosa M.D. [id number] Hemoglobin (Bld) [Mass/Vol] 7.6 g/dL Low 12.0-16.0 [facility] Comment on above: Performed By: #### 4 5218 ####[facility] [address] [place], [place] [address] Milton Hinojosa M.D. [id number] MCH (RBC) [Entitic mass] 26.9 pg Normal 26.0-34.0 [facility] Comment on above: Performed By: #### 4 5218 ####[facility] [address] [place], [place] [address] Milton Hinojosa M.D. [id number] MCV (RBC) [Entitic vol] 87.3 fL Normal 80.0-100.0 [facility] Comment on above: Performed By: #### 4 5218 ####[facility] [address] [place] [address] Milton Hinojosa M.D. [id number] MEAN CORPUSCULAR HEMOGLOBIN CONC 30.8 g/dL Low 31.0-37.0 [facility] Comment on above: Performed By: #### 4 5218 ####[facility] [address] [place] [address] Milton Hinojosa M.D. [id number] Platelet mean volume (Bld) [Entitic vol] 9.2 fL Low 9.4-12.4 [facility] Comment on above: Performed By: #### 4 5218 ####[facility] [address] [place], [place] [address]Zeina Hinojosa M.D. [id number] Platelets (Bld) [#/Vol] 293 10*3/uL Normal 150-400 [facility] Comment on above: Performed By: #### 4 5218 ####[facility] [address] [place], [place] [address] Milton Hinojosa M.D. [id number] RBC (Bld) [#/Vol] 2.83 10*6/uL Low 4.00-5.20 [facility] Comment on above: Performed By: #### 4 5218 ####[facility] [address] [place] [address] Milton Hinojosa M.D. [id number] WBC (Bld) [#/Vol] 9.55 10*3/uL Normal 4.50-11.00 [facility] Comment on above: Result Comment: Imelda pheral smear reviewed manually Performed By: #### 4 5218 ####[facility] [address] [place] [address] 44398 Milton Hinojosa M.D. [id number] COMPREHENSIVE METABOLIC PANE [place] 07-30-2025 Albumin [Mass/Vol] 2.1 g/dL Low 3.2-5.2 [place] Comment on above: Order Comment: [facility] has implemented the eGFR calculation approach that does not have a coefficient for race that conforms to the NKF-ASN Task Force Recommendations. Performed By: #### 4 6126 ####[facility] [address] [place] [address] 84490 Milton Hinojosa M.D. [id number] ALP [Catalytic activity/Vol] 140 U/L Normal 40-150 [facility] Comment on above: Order Comment: [facility] has implemented the eGFR calculation approach that does not have a coefficient for race that conforms to the NKF-ASN Task Force Recommendations. Performed By: #### 4 6126 ####[facility] [address] [place] [address] 74544 Milton Hinojosa M.D. [id number] ALT [Catalytic activity/Vol] 9 U/L Normal 0-35 U/L [facility] Comment on above: Order Comment: [facility] has implemented the eGFR calculation approach that does not have a coefficient for race that conforms to the NKF-ASN Task Force Recommendations. Performed By: #### 4 6126 ####[facility] [address] [place] [address] 38449 Milton Hinojosa M.D. [id number] Anion gap [Moles/Vol] 18 mmol/L Normal 10-20 [facility] Comment on above: Order Comment: [facility] has implemented the eGFR calculation approach that does not have a coefficient for race that conforms to the NKF-ASN Task Force Recommendations. Performed By: #### 4 6126 ####[facility] [address] [place] [address] 87790 Milton Hinojosa M.D. [id number] AST [Catalytic activity/Vol] 13 U/L Normal 0-35 U/L [facility] Comment on above: Order Comment: [facility] has implemented the eGFR calculation approach that does not have a coefficient for race that conforms to the NKF-ASN Task Force Recommendations. Performed By: #### 4 6126 ####[facility] [address] [place] [address] 62797 Milton Hinojosa M.D. [id number] Bilirubin [Mass/Vol] 0.3 mg/dL Normal 0.0-1.3 [facility] Comment on above: Order Comment: [facility] has implemented the eGFR calculation approach that does not have a coefficient for race that conforms to the NKF-ASN Task Force Recommendations. Performed By: #### 4 6126 ####[facility] [address] [place] [address] 66727 Milton Hinojosa M.D. [id number] Calcium [Mass/Vol] 7.5 mg/dL Low 8.4-10.2 [place] Comment on above: Order Comment: [facility] has implemented the eGFR calculation approach that does not have a coefficient for race that conforms to the NKF-ASN Task Force Recommendations. Performed By: #### 4 6126 ####[facility] [address] [place] [address] 27302 Milton Hinojosa M.D. [id number] Chloride [Moles/Vol] 100 mmol/L Normal 98-108 [facility] Comment on above: Order Comment: [facility] has implemented the eGFR calculation approach that does not have a coefficient for race that conforms to the NKF-ASN Task Force Recommendations. Performed By: #### 4 6126 ####[facility] [address] [place] [address] 06245 Milton Hinojosa M.D. [id number] Creatinine [Mass/Vol] 3.94 mg/dL High 0.60-1.20 [facility] Comment on above: Order Comment: [facility] has implemented the eGFR calculation approach that does not have a coefficient for race that conforms to the NKF-ASN Task Force Recommendations. Performed By: #### 4 6126 ####[facility] [address] [place] [address] 91254 Milton Hinojosa M.D. [id number] EGFR 11 mL/min/1.73 m2 Low >=60 [facility] Comment on above: Order Comment: [facility] has implemented the eGFR calculation approach that does not have a coefficient for race that conforms to the NKF-ASN Task Force Recommendations. Result Comment: Lalita mated GFR was calculated using the 2020 CKD-EPI creatinine equation. Performed By: #### 4 6126 ####[facility] [address] [place] [address] 58574 Milton Hinojosa M.D. [id number] Glucose [Mass/Vol] 110 mg/dL High 65-99 [place] Comment on above: Order Comment: [facility] has implemented the eGFR calculation approach that does not have a coefficient for race that conforms to the NKF-ASN Task Force Recommendations. Performed By: #### 4 6126 ####[facility] [address] [place] [address] 94015 Milton Hinojosa M.D. [id number] HCO3 (Bld) [Moles/Vol] 24 mmol/L Normal 21-32 [facility] Comment on above: Order Comment: [facility] has implemented the eGFR calculation approach that does not have a coefficient for race that conforms to the NKF-ASN Task Force Recommendations. Performed By: #### 4 6126 ####[facility] [address] [place] [address] 94653 Milton Hinojosa M.D. [id number] Potassium [Moles/Vol] 3.7 mmol/L Normal 3.5-5.1 [facility] Comment on above: Order Comment: [facility] has implemented the eGFR calculation approach that does not have a coefficient for race that conforms to the NKF-ASN Task Force Recommendations. Performed By: #### 4 6126 ####[facility] [address] [place], [place] [address] Milton Hinojosa M.D. [id number] Protein [Mass/Vol] 5.5 g/dL Low 6.0-8.0 [place] Comment on above: Order Comment: [facility] has implemented the eGFR calculation approach that does not have a coefficient for race that conforms to the NKF-ASN Task Force Recommendations. Performed By: #### 4 6126 ####[facility] [address] [place], [place] [address] Milton Hinojosa M.D. [id number] Sodium [Moles/Vol] 138 mmol/L Normal 135-145 [place] Comment on above: Order Comment: [facility] has implemented the eGFR calculation approach that does not have a coefficient for race that conforms to the NKF-ASN Task Force Recommendations. Performed By: #### 4 6126 ####[facility] [address] [place] [address] 30278 Milton Hinojosa M.D. [id number] Urea nitrogen [Mass/Vol] 39 mg/dL High 8-25 [facility] Comment on above: Order Comment: [facility] has implemented the eGFR calculation approach that does not have a coefficient for race that conforms to the NKF-ASN Task Force Recommendations. Performed By: #### 4 6126 ####[facility] [address] [place] [address] 52797 Milton Hinojosa M.D. [id number] Urea nitrogen/Creatinine [Mass ratio] 9.9 mg/mg Low 10.0-20.0 [facility] Comment on above: Order Comment: [facility] has implemented the eGFR calculation approach that does not have a coefficient for race that conforms to the NKF-ASN Task Force Recommendations. Performed By: #### 4 6126 ####[facility] [address] [place], [place] [address] Milton Hinojosa M.D. [id number] IRON STUDY WITH FERRITINon 0 07-30-2025 Ferritin [Mass/Vol] 391 ng/mL High 13-150 [facility] Comment on above: Performed By: #### 4 7645 ####[facility] [address] [place] [address] Milton Hinojosa M.D. [id number] Iron [Mass/Vol] 20 ug/dL Low 30-160 [facility] Comment on above: Performed By: #### 4 7645 ####[facility] [address] [place], [place] [address] Milton Hinojosa M.D. [id number] IRON SATURATION 15 % Low 20-50 [facility] Comment on above: Performed By: #### 4 7645 ####[facility] [address] [place], [place] [address] Milton Hinojosa M.D. [id number] TIBC (CALCULATED) 132 mcg/dL Low 225-430 [facility] Comment on above: Performed By: #### 4 7645 ####[facility] [address] [place], [place] [address] Milton Hinojosa M.D. [id number] MAGNESIUM LEVELon 07-30-2025 Magnesium [Mass/Vol] 2.3 mg/dL Normal 1.6-2.4 [facility] Comment on above: Performed By: #### 4 6109 ####[facility] [address] [place], [place] [address] Milton Hinojosa M.D. [id number] PHOSPHORUSon 07-30-2025 Phosphate [Mass/Vol] 4.5 mg/dL High 2.8-4.1 [facility] Comment on above: Performed By: #### 4 6299 ####[facility] [address] [place] [address] Milton Hinojosa M.D. [id number] [facility] Glucose [Mass/Vol] 82 mg/dL Normal 65-99 [place] Comment on above: Performed By: #### 4 6932 ####[facility] [address] [place] [address] [id number] RM[facility] Glucose [Mass/Vol] 95 mg/dL Normal 65-99 [place] Comment on above: Performed By: #### 4 6932 ####[facility] [address] [place] [address] [id number] RM[facility] Glucose [Mass/Vol] 92 mg/dL Normal 65-99 [place] Comment on above: Performed By: #### 4 6932 ####[facility] [address] [place] [address] [id number] [facility] POTASSIUM LEVELon 07-30-2025 Potassium [Moles/Vol] 4.4 mmol/L Normal 3.5-5.1 [facility] Comment on above: Performed By: #### 4 6351 ####[facility] [address] [place] [address] Milton Hinojosa M.D. [id number] VANCOMYCIN LEVEL, RANDOMon 0 07-30-2025 VANCOMYCIN RANDOM 23.0 mcg/mL Normal [place] Comment on above: Order Comment: As of 08/2022 vancomycin dosing for [facility] inpatients will be done by Bayesian dosing software rather than off traditional trough values. Please contact the site specific inpatient pharmacy before making dose changes off of trough values alone for admitted patients.No established reference range. Performed By: #### 4 6651 ####[facility] [address] [place] [address] 45915 Milton Hinojosa M.D. [id number] CALCIUM, IONIZEDon CALCIUM IONIZED 4.2 mg/dL Low 4.5-5.3 [facility] Comment on above: Performed By: #### 4 5190 ####[facility] [address] [place], [place] [address] Milton Hinojosa M.D. [id number] CBCon 07-29-2025 AUTO NRBC 0.0 % Normal [facility] Comment on above: Performed By: #### 4 [id number] ####[facility] [address] [place], [place] [address] Milton Hinojosa M.D. [id number] AUTO NRBC ABS COUNT 0.00 K/mcL Normal 0.00-0.00 [facility] Comment on above: Performed By: #### 4 5218 ####[facility] [address] [place], [place] [address] Milton Hinojosa M.D. [id number] Erythrocyte distribution width (RBC) [Ratio] 15.3 % High 11.6-14.8 [facility] Comment on above: Performed By: #### 4 5218 ####[facility] [address] [place], [place] [address] Milton Hinojosa M.D. [id number] Hematocrit (Bld) [Volume fraction] 25.2 % Low 36.0-46.0 [facility] Comment on above: Performed By: #### 4 5218 ####[facility] [address] [place], [place] [address] Milton Hinojosa M.D. [id number] Hemoglobin (Bld) [Mass/Vol] 8.0 g/dL Low 12.0-16.0 [facility] Comment on above: Performed By: #### 4 5218 ####[facility] [address] [place], [place] [address] Milton Hinojosa M.D. [id number] MCH (RBC) [Entitic mass] 27.0 pg Normal 26.0-34.0 [facility] Comment on above: Performed By: #### 4 5218 ####[facility] [address] [place] [address] Milton Hinojosa M.D. [id number] MCV (RBC) [Entitic vol] 85.1 fL Normal 80.0-100.0 [facility] Comment on above: Performed By: #### 4 5218 ####[facility] [address] [place] [address] Milton Hinojosa M.D. [id number] MEAN CORPUSCULAR HEMOGLOBIN CONC 31.7 g/dL Normal 31.0-37.0 [facility] Comment on above: Performed By: #### 4 5218 ####[facility] [address] [place], [place] [address] Milton Hinojosa M.D. [id number] Platelet mean volume (Bld) [Entitic vol] 9.2 fL Low 9.4-12.4 [facility] Comment on above: Performed By: #### 4 [id number] ####[facility] [address] [place], [place] [address] Milton Hinojosa M.D. [id number] Platelets (Bld) [#/Vol] 287 10*3/uL Normal 150-400 [facility] Comment on above: Performed By: #### 4 5218 ####[facility] [address] [place], [place] [address] Milton Hinojosa M.D. [id number] RBC (Bld) [#/Vol] 2.96 10*6/uL Low 4.00-5.20 [facility] Comment on above: Performed By: #### 4 [id number] ####[facility] [address] [id number] Milton Hinojosa M.D. [id number] WBC (Bld) [#/Vol] 10.29 10*3/uL Normal 4.50-11.00 [facility] Comment on above: Performed By: #### 4 [id number] ####[facility] [address] [place], [place] [address] Milton Hinojosa M.D. [id number] COMPREHENSIVE METABOLIC PANE [facility] 07-29-2025 Albumin [Mass/Vol] 2.1 g/dL Low 3.2-5.2 [place] Comment on above: Order Comment: [facility] has implemented the eGFR calculation approach that does not have a coefficient for race that conforms to the NKF-ASN Task Force Recommendations. Performed By: #### 4 6126 ####[facility] [address] [place], [place] [address] Milton Hinojosa M.D. [id number] ALP [Catalytic activity/Vol] 140 U/L Normal 40-150 [facility] Comment on above: Order Comment: [facility] has implemented the eGFR calculation approach that does not have a coefficient for race that conforms to the NKF-ASN Task Force Recommendations. Performed By: #### 4 6126 ####[facility] [address] [place], [place] [address] Milton Hinojosa M.D. [id number] ALT [Catalytic activity/Vol] 9 U/L Normal 0-35 U/L [facility] Comment on above: Order Comment: [facility] has implemented the eGFR calculation approach that does not have a coefficient for race that conforms to the NKF-ASN Task Force Recommendations. Performed By: #### 4 6126 ####[facility] [address] [place], [place] [address] Milton Hinojosa M.D. [id number] Anion gap [Moles/Vol] 18 mmol/L Normal 10-20 [facility] Comment on above: Order Comment: [facility] has implemented the eGFR calculation approach that does not have a coefficient for race that conforms to the NKF-ASN Task Force Recommendations. Performed By: #### 4 6126 ####[facility] [address] [place] [address] 15182 Milton Hinojosa M.D. [id number] AST [Catalytic activity/Vol] 9 U/L Normal 0-35 U/L [facility] Comment on above: Order Comment: [facility] has implemented the eGFR calculation approach that does not have a coefficient for race that conforms to the NKF-ASN Task Force Recommendations. Performed By: #### 4 6126 ####[facility] [address] [place], [place] [address] Milton Hinojosa M.D. [id number] Bilirubin [Mass/Vol] 0.3 mg/dL Normal 0.0-1.3 [facility] Comment on above: Order Comment: [facility] has implemented the eGFR calculation approach that does not have a coefficient for race that conforms to the NKF-ASN Task Force Recommendations. Performed By: #### 4 6126 ####[facility] [address] [place], [place] [address] Milton Hinojosa M.D. [id number] Calcium [Mass/Vol] 7.4 mg/dL Low 8.4-10.2 [place] Comment on above: Order Comment: [facility] has implemented the eGFR calculation approach that does not have a coefficient for race that conforms to the NKF-ASN Task Force Recommendations. Performed By: #### 4 6126 ####[facility] [address] [place] [address] 90916 Milton Hinojosa M.D. [id number] Chloride [Moles/Vol] 98 mmol/L Normal 98-108 [facility] Comment on above: Order Comment: [facility] has implemented the eGFR calculation approach that does not have a coefficient for race that conforms to the NKF-ASN Task Force Recommendations. Performed By: #### 4 6126 ####[facility] [address] [place] [address] 55256 Milton Hinojosa M.D. [id number] Creatinine [Mass/Vol] 3.78 mg/dL High 0.60-1.20 [facility] Comment on above: Order Comment: [facility] has implemented the eGFR calculation approach that does not have a coefficient for race that conforms to the NKF-ASN Task Force Recommendations. Performed By: #### 4 6126 ####[facility] [address] [place] [address] 23903 Milton Hinojosa M.D. [id number] EGFR 12 mL/min/1.73 m2 Low >=60 [facility] Comment on above: Order Comment: [facility] has implemented the eGFR calculation approach that does not have a coefficient for race that conforms to the NKF-ASN Task Force Recommendations. Result Comment: Lalita mated GFR was calculated using the 2020 CKD-EPI creatinine equation. Performed By: #### 4 6126 ####[facility] [address] [place] [address] 40356 Milton Hinojosa M.D. [id number] Glucose [Mass/Vol] 173 mg/dL High 65-99 [place] Comment on above: Order Comment: [facility] has implemented the eGFR calculation approach that does not have a coefficient for race that conforms to the NKF-ASN Task Force Recommendations. Performed By: #### 4 6126 ####[facility] [address] [place] [address] 05857 Milton Hinojosa M.D. [id number] HCO3 (Bld) [Moles/Vol] 23 mmol/L Normal 21-32 [facility] Comment on above: Order Comment: [facility] has implemented the eGFR calculation approach that does not have a coefficient for race that conforms to the NKF-ASN Task Force Recommendations. Performed By: #### 4 6126 ####[facility] [address] [place] [address] 47564 Milton Hinojosa M.D. [id number] Potassium [Moles/Vol] 3.8 mmol/L Normal 3.5-5.1 [facility] Comment on above: Order Comment: [facility] [facility] has implemented the eGFR calculation approach that does not have a coefficient for race that conforms to the NKF-ASN Task Force Recommendations. Performed By: #### 4 6126 ####[facility] [address] [place] [address] 87281 Milton Hinojosa M.D. [id number] Protein [Mass/Vol] 5.6 g/dL Low 6.0-8.0 [place] Comment on above: Order Comment: [facility] has implemented the eGFR calculation approach that does not have a coefficient for race that conforms to the NKF-ASN Task Force Recommendations. Performed By: #### 4 6126 ####[facility] [address] [place] [address] 43623 Milton Hinojosa M.D. [id number] Sodium [Moles/Vol] 135 mmol/L Normal 135-145 [place] Comment on above: Order Comment: [facility] has implemented the eGFR calculation approach that does not have a coefficient for race that conforms to the NKF-ASN Task Force Recommendations. Performed By: #### 4 6126 ####[facility] [address] [place] [address] 31458 Milton Hinojosa M.D. [id number] Urea nitrogen [Mass/Vol] 31 mg/dL High 8-25 [facility] Comment on above: Order Comment: [facility] has implemented the eGFR calculation approach that does not have a coefficient for race that conforms to the NKF-ASN Task Force Recommendations. Performed By: #### 4 6126 ####[facility] [address] [place] [address] 27146 Milton Hinojosa M.D. [id number] Urea nitrogen/Creatinine [Mass ratio] 8.2 mg/mg Low 10.0-20.0 [facility] Comment on above: Order Comment: [facility] has implemented the eGFR calculation approach that does not have a coefficient for race that conforms to the NKF-ASN Task Force Recommendations. Performed By: #### 4 6126 ####[facility] [address] [place] [address] Milton Hinojosa M.D. [id number] MAGNESIUM LEVELon 07-29-2025 Magnesium [Mass/Vol] 1.8 mg/dL Normal 1.6-2.4 [facility] Comment on above: Performed By: #### 4 6109 ####[facility] [address] [place] [address] Milton Hinojosa M.D. [id number] PHOSPHORUSon 07-29-2025 Phosphate [Mass/Vol] 4.7 mg/dL High 2.8-4.1 [facility] Comment on above: Performed By: #### 4 6299 ####[facility] [address] [place] [address] Milton Hinojosa M.D. [id number] POC GLUCOSE - [facility] 025 Glucose [Mass/Vol] 132 mg/dL High -[address] [place] [address] Comment on above: Performed By: #### 4 0407 ####[facility] [address] [place] [address] [id number] [facility] Glucose [Mass/Vol] 125 mg/dL High 65-99 [place] Comment on above: Performed By: #### 4 7527 ####[facility] [address] [place] [address] [id number] [facility] Glucose [Mass/Vol] 118 mg/dL High [address] [place] [address] Comment on above: Performed By: #### 4 1930 ####[facility] [address] [place] [address] [id number] [facility] Glucose [Mass/Vol] 139 mg/dL High 65-99 [place] Comment on above: Performed By: #### 4 6932 ####[facility] [address] [place] [address] [id number] [facility] Glucose [Mass/Vol] 167 mg/dL High 65-99 [place] Comment on above: Performed By: #### 4 6932 ####[facility] [address] [place] [address] [id number] [facility] PT/INRon 07-29-2025 INR Coag (PPP) [Relative time] 1.6 {INR} High 0.8-1.1 [facility] Comment on above: Order Comment: Praneeth barajas the induction phase of oral anticoagulation, the INR may not reflect the anticoagulation status of the patient. Therapeutic ranges for INR's are:Most clinical situations: INR 2.0-3.0Mechanical Prosthetic Valve: INR 2.5-3.5Critical: INR >5.0 Performed By: #### 4 6391 ####[facility] [address] [place], [place] [address] Milton Hinojosa M.D. [id number] PT Coag (PPP) [Time] 18.9 s High 11.8-14.3 [facility] Comment on above: Order Comment: Praneeth barajas the induction phase of oral anticoagulation, the INR may not reflect the anticoagulation status of the patient. Therapeutic ranges for INR's are:Most clinical situations: INR 2.0-3.0Mechanical Prosthetic Valve: INR 2.5-3.5Critical: INR >5.0 Performed By: #### 4 6391 ####[facility] [address] [place], [place] [address] Milton Hinojosa M.D. [id number] VANCOMYCIN LEVEL, RANDOMon 0 07-29-2025 VANCOMYCIN RANDOM 11.0 mcg/mL Normal [place] Comment on above: Order Comment: Martha garcia stat random vancomycin levelAs of 08/2022 vancomycin dosing for [facility] inpatients will be done by Bayesian dosing software rather than off traditional trough values. Please contact the site specific inpatient pharmacy before making dose changes off of trough values alone for admitted patients.No established reference range. Performed By: #### 4 6651 ####[facility] [address] [place] [address] Milton Hinojosa M.D. [id number] ABORH VERIFICATIONon 025 ABO and Rh group Nom (Bld) Blood group AB Rh(D) positive [facility] Comment on above: Performed By: #### 4 8787 ####[facility] [address] [place] [address] Gwen Caceres MD [id number] [facility] ABO and Rh group Nom (Bld) ABO/Rh Verification Normal [facility] Comment on above: Result Comment: Angelica ent's ABO/Rh is verified. Performed By: #### 4 8787 ####[facility] [address] [place] [address] Gwen Caceres MD [id number] [facility] Abo/Rh Group Test - STAT (VE RAB)on 07-28-2025 ABO group Nom (Bld) AB [facility] D Ag Ql (Bld) Positive [facility] BASIC METABOLIC PANELon 07-16 Anion gap [Moles/Vol] 18 mmol/L Normal 10-20 [facility] Comment on above: Order Comment: [facility] has implemented the eGFR calculation approach that does not have a coefficient for race that conforms to the NKF-ASN Task Force Recommendations. Performed By: #### 4 6124 ####[facility] [address] [place] [address] Milton Hinojosa M.D. [id number] Calcium [Mass/Vol] 8.4 mg/dL Normal 8.4-10.2 [place] Comment on above: Order Comment: [facility] has implemented the eGFR calculation approach that does not have a coefficient for race that conforms to the NKF-ASN Task Force Recommendations. Performed By: #### 4 6124 ####[facility] [address] [place] [address] 24[address] Milton Hinojosa M.D. [id number] Chloride [Moles/Vol] 97 mmol/L Low 98-108 [facility] Comment on above: Order Comment: [facility] has implemented the eGFR calculation approach that does not have a coefficient for race that conforms to the NKF-ASN Task Force Recommendations. Performed By: #### 4 6124 ####[facility] [address] [place] [address] 3[address] Milton Hinojosa M.D. [id number] Creatinine [Mass/Vol] 3.26 mg/dL High 0.60-1.20 [facility] Comment on above: Order Comment: [facility] has implemented the eGFR calculation approach that does not have a coefficient for race that conforms to the NKF-ASN Task Force Recommendations. Performed By: #### 4 6124 ####[facility] [address] [place] [address] 68101 Milton Hinojosa M.D. [id number] EGFR 14 mL/min/1.73 m2 Low >=60 [facility] Comment on above: Order Comment: [facility] has implemented the eGFR calculation approach that does not have a coefficient for race that conforms to the NKF-ASN Task Force Recommendations. Result Comment: Lalita mated GFR was calculated using the 2020 CKD-EPI creatinine equation. Performed By: #### 4 6124 ####[facility] [address] [place] [address] 65981 Milton Hinojosa M.D. [id number] Glucose [Mass/Vol] 143 mg/dL High 65-99 [place] Comment on above: Order Comment: [facility] has implemented the eGFR calculation approach that does not have a coefficient for race that conforms to the NKF-ASN Task Force Recommendations. Performed By: #### 4 6108 ####[facility] [address] [place] [address] 22431 Milton Hinojosa M.D. [id number] HCO3 (Bld) [Moles/Vol] 25 mmol/L Normal 21-32 [facility] Comment on above: Order Comment: [facility] has implemented the eGFR calculation approach that does not have a coefficient for race that conforms to the NKF-ASN Task Force Recommendations. Performed By: #### 4 6124 ####[facility] [address] [place] [address] Milton Hinojosa M.D. [id number] Potassium [Moles/Vol] 3.7 mmol/L Normal 3.5-5.1 [facility] Comment on above: Order Comment: [facility] has implemented the eGFR calculation approach that does not have a coefficient for race that conforms to the NKF-ASN Task Force Recommendations. Performed By: #### 4 6124 ####[facility] [address] [place] [address] Milton Hinojosa M.D. [id number] Sodium [Moles/Vol] 136 mmol/L Normal 135-145 [place] Comment on above: Order Comment: [facility] has implemented the eGFR calculation approach that does not have a coefficient for race that conforms to the NKF-ASN Task Force Recommendations. Performed By: #### 4 6124 ####[facility] [address] [place], [place] [address] Milton Hinojosa M.D. [id number] Urea nitrogen [Mass/Vol] 25 mg/dL Normal 8-25 [facility] Comment on above: Order Comment: [facility] has implemented the eGFR calculation approach that does not have a coefficient for race that conforms to the NKF-ASN Task Force Recommendations. Performed By: #### 4 6124 ####[facility] [address] [place] [address] 19103 Milton Hinojosa M.D. [id number] Urea nitrogen/Creatinine [Mass ratio] 7.7 mg/mg Low 10.0-20.0 [facility] Comment on above: Order Comment: [facility] has implemented the eGFR calculation approach that does not have a coefficient for race that conforms to the NKF-ASN Task Force Recommendations. Performed By: #### 4 6124 ####[facility] [address] [place] [address] Milton Hinojosa M.D. [id number] BLOOD CULTURE AEROBIC/ANAERO BICon 07-28-2025 BLOOD CULTURE AEROBIC/ANAEROBIC BLOOD CULTURE No Growth after 5 days [facility] Comment on above: Performed By: #### 4 4014 ####[facility] [address] [place] [address] 34342 Milton Hinojosa M.D. [id number] BLOOD CULTURE AEROBIC/ANAEROBIC BLOOD CULTURE No Growth after 5 days [facility] Comment on above: Performed By: #### 4 4014 ####[facility] [address] [place] [address] Milton Hinojosa M.D. [id number] Blood type and Indirect anti body screen panel (Bld)on 07-28-2025 ABO group Nom (Bld) AB [facility] Blood group antibody screen Ql Negative [facility] D Ag Ql (Bld) Positive [facility] ABO group Nom (Bld) AB [facility] Comment on above: Performed By: #### 1 988-5 #### ARIANA LONDONO ([id number]) [facility] ([facility]) [address] [place] [address] Blood group antibody screen Ql Negative [facility] Comment on above: Performed By: #### 1 988-5 #### ARIANA LONDONO ([id number]) [facility] ([facility]) [address] [place] [address] D Ag Ql (Bld) Positive [facility] Comment on above: Performed By: #### 1 988-5 #### ARIANA LONDONO ([id number]) [facility] ([facility]) [address] [place] [address] CBC WITH AUTO DIFFERENTIALon 07-28-2025 AUTO NRBC 0.0 % Normal [facility] Comment on above: Performed By: #### L [id number] ####[facility] [address] [place] [address] Milton Hinojosa M.D. [id number] AUTO NRBC ABS COUNT 0.00 K/mcL Normal 0.00-0.00 [facility] Comment on above: Performed By: #### L [id number] ####[facility] [address] [place] [address] Milton Hinojosa M.D. [id number] BASOPHILS ABSOLUTE COUNT 0.04 K/mcL Normal 0.00-0.30 [facility] Comment on above: Performed By: #### Honey [id number] ####[facility] [address] [place] [address] Milton Hinojosa M.D. [id number] Basophils/100 WBC (Bld) 0.2 % Normal [facility] Comment on above: Performed By: #### L [id number] ####[facility] [address] [place] [address] Milton Hinojosa M.D. [id number] Eosinophils (Bld) [#/Vol] 0.00 10*3/uL Normal 0.00-0.50 [facility] Comment on above: Performed By: #### L [id number] ####[facility] [address] [place] [address] Milton Hinojosa M.D. [id number] Eosinophils/100 WBC (Bld) 0.0 % [facility] Comment on above: Performed By: #### L [id number] ####[facility] [address] [place] [address] Milton Hinojosa M.D. [id number] Erythrocyte distribution width (RBC) [Ratio] 15.2 % High 11.6-14.8 [facility] Comment on above: Performed By: #### L [id number] ####[facility] [address] [place] [address] Milton Hinojosa M.D. [id number] Hematocrit (Bld) [Volume fraction] 32.1 % Low 36.0-46.0 [facility] Comment on above: Performed By: #### L [id number] ####[facility] [address] [place] [address] Milton Hinojosa M.D. [id number] Hemoglobin (Bld) [Mass/Vol] 10.0 g/dL Low 12.0-16.0 [facility] Comment on above: Performed By: #### L [id number] ####[facility] [address] [place] [address] Milton Hinojosa M.D. [id number] IG ABSOLUTE 0.09 K/mcL Normal 0.00-0.30 [facility] Comment on above: Performed By: #### L [id number] ####[facility] [address] [place] [address] Milton Hinojosa M.D. [id number] IG PERCENT 0.50 % Normal [facility] Comment on above: Result Comment: The IG parameter is the percentage of metamyelocytes, myelocytes and promyelocytes. An immature granulocyte count (IG) of 1% or more suggests the possibility of infection, an IG count of 3% is very likely related to an infection. Performed By: #### L [id number] ####[facility] [address] [place] [address] Milton Hinojosa M.D. [id number] Lymphocytes (Bld) [#/Vol] 0.64 10*3/uL Low 0.90-4.00 [facility] Comment on above: Performed By: #### L [id number] ####[facility] [address] [place] [address] Milton Hinojosa M.D. [id number] Lymphocytes/100 WBC (Bld) 3.8 % Normal [facility] Comment on above: Performed By: #### Honey [id number] ####[facility] [address] [place] [address] Milton Hinojosa M.D. [id number] MCH (RBC) [Entitic mass] 27.2 pg Normal 26.0-34.0 [facility] Comment on above: Performed By: #### Honey [id number] ####[facility] [address] [place] [address] Milton Hinojosa M.D. [id number] MCV (RBC) [Entitic vol] 87.5 fL Normal 80.0-100.0 [facility] Comment on above: Performed By: #### Honey [id number] ####[facility] [address] [place] [address] Milton Hinojosa M.D. [id number] MEAN CORPUSCULAR HEMOGLOBIN CONC 31.2 g/dL Normal 31.0-37.0 [facility] Comment on above: Performed By: #### Honey [id number] ####[facility] [address] [place] [address] Milton Hinojosa M.D. [id number] Monocytes (Bld) [#/Vol] 0.90 10*3/uL Normal 0.30-0.90 [facility] Comment on above: Performed By: #### L [id number] ####[facility] [address] [place] [address] Milton Hinojosa M.D. [id number] Monocytes/100 WBC (Bld) 5.3 % Normal [facility] Comment on above: Performed By: #### L [id number] ####[facility] [address] [place] [address] 40992 Milton Hinojosa M.D. [id number] NEUTROPHILS ABSOLUTE COUNT 15.18 K/mcL High 1.70-7.00 [facility] Comment on above: Performed By: #### Honey [id number] ####[facility] [address] [place], [place] [address] Milton Hinojosa M.D. [id number] Neutrophils/100 WBC (Bld) 90.2 % Normal [facility] Comment on above: Performed By: #### Honey [id number] ####[facility] [address] [place], [place] [address] Milton Hinojosa M.D. [id number] Platelet mean volume (Bld) [Entitic vol] 9.1 fL Low 9.4-12.4 [facility] Comment on above: Performed By: #### Honey [id number] ####[facility] [address] [place], [place] [address] Milton Hinojosa M.D. [id number] Platelets (Bld) [#/Vol] 371 10*3/uL Normal 150-400 [facility] Comment on above: Performed By: #### L [id number] ####[facility] [address] [place] [address] 299[address] Milton Hinojosa M.D. [id number] RBC (Bld) [#/Vol] 3.67 10*6/uL Low 4.00-5.20 [facility] Comment on above: Performed By: #### L [id number] ####[facility] [address] [place], [place] [address] Milton Hinojosa M.D. [id number] WBC (Bld) [#/Vol] 16.85 10*3/uL High 4.50-11.00 [facility] Comment on above: Performed By: #### L [id number] ####[facility] [place] [address] Milton Hinojosa M.D. [id number] CONSULTon 07-28-2025 CONSULT Normal [facility] CONSULT Normal [facility] CT Abdomen WO contraston High-grade distal small bowel obstruction with transition in the lower pelvis along the vaginal cuff suggesting probable adhesions from the patient's prior hysterectomy with extensive mesenteric edema in appearance concerning for closed loop obstruction. Internal hernia is is also a possibility for the cause of the hernia given the appearance of a closed loop obstruction. Cardiomegaly with extensive coronary atherosclerosis and suspected systemic anemia. Large right pleural effusion with collapse of the right lower lobe and probable superimposed right lower lobe pneumonia. Morphologic changes of cirrhosis. Distal colonic diverticulosis. Additional chronic changes as described. NOTIFICATION: The critical results of the study were discussed with, and acknowledged by Dr. Tory Watkins by telephone on 07/28/2025 at 12:31 AM. Signed by Elvin Liz TELERADIOLOGY STUDY: CT Abdomen and Pelvis without IV Contrast; 07/28/2025 at 12:04 AM. INDICATION: Lower abdominal pain. COMPARISON: None available. ACCESSION NUMBER(S): [id number] ORDERING CLINICIAN: TORY KUMAR TECHNIQUE: CT of the abdomen and pelvis was performed. Contiguous axial images were obtained at 3 mm slice thickness through the abdomen and pelvis. Coronal and sagittal reconstructions at 3 mm slice thickness were performed. No intravenous contrast was administered. Oral contrast was administered as a component of this study; the patient received approximately QUANTITY mL of TYPE OF CONTRAST by mouth. DICOM images received. Automated mA/kV exposure control was utilized and patient examination was performed in strict accordance with principles of ALARA. FINDINGS: Please note that the evaluation of vessels, lymph nodes and organs is limited without intravenous contrast. LOWER CHEST: Cardiac size is enlarged with extensive calcified coronary atherosclerosis. Cardiac blood pool is low in attenuation suggestive systemic anemia. No pericardial effusion. There is a large right pleural effusion with collapse of the right lower lobe. ABDOMEN: LIVER: Liver demonstrates a cirrhotic morphology with a nodular hepatic contour suggesting morphologic changes of cirrhosis. BILE DUCTS: No intrahepatic or extrahepatic biliary ductal dilatation. GALLBLADDER: Gallbladder is absent. STOMACH: Moderate amount of upper abdominal ascites is noted. PANCREAS: There is moderate pancreatic atrophy. SPLEEN: No splenomegaly or focal splenic lesion. ADRENAL GLANDS: No thickening or nodules. KIDNEYS AND URETERS: Kidneys are normal in size and location. No renal or ureteral calculi. Mild to moderate renal cortical thinning and perinephric stranding is seen bilaterally. PELVIS: BLADDER: Urinary bladder is decompressed, limiting assessment. Calcifications are seen in the right anterior pelvic wall, likely related to prior operative procedure. REPRODUCTIVE ORGANS: The patient is status post hysterectomy. BOWEL: Appendix is not definitively identified. Terminal ileum is decompressed and appears unremarkable. Diverticulosis is seen in the descending colon there is mild traction on the distal sigmoid colon related to the pelvic obstruction and adhesions. Dilated fluid-filled loops of small bowel are seen in the right lower quadrant of the abdomen with extensive associated mesenteric edema with transition point in the lower pelvis along the vaginal cuff, likely secondary to adhesions related to the patient's prior hysterectomy. VESSELS: There is mild calcified plaque in the abdominal aorta and iliac arteries. PERITONEUM/RETROPERITO NEUM/LYMPH NODES: No free fluid. No pneumoperitoneum. No lymphadenopathy. ABDOMINAL WALL: Generalized soft tissue edema is seen throughout the abdominal and pelvic wall. SOFT TISSUES: No abnormalities identified. BONES: No acute fracture or aggressive osseous lesion. Moderate multilevel disc disease and osteophyte formation is seen throughout the thoracic spine with bridging osteophytes throughout the thoracic spine. There is moderate to severe disc disease throughout the lumbar spine, most pronounced at L4-5. Right total hip arthroplasty is noted. Generalized osseous demineralization is present. TELERADIOLOGY Elvin Liz MD - 07/28/2025 STUDY: CT Abdomen and Pelvis without IV Contrast; 07/28/2025 at 12:04 AM. INDICATION: Lower abdominal pain. COMPARISON: None available. ACCESSION NUMBER(S): [id number] ORDERING CLINICIAN: TORY KUMAR TECHNIQUE: CT of the abdomen and pelvis was performed. Contiguous axial images were obtained at 3 mm slice thickness through the abdomen and pelvis. Coronal and sagittal reconstructions at 3 mm slice thickness were performed. No intravenous contrast was administered. Oral contrast was administered as a component of this study; the patient received approximately QUANTITY mL of TYPE OF CONTRAST by mouth. DICOM images received. Automated mA/kV exposure control was utilized and patient examination was performed in strict accordance with principles of ALARA. FINDINGS: Please note that the evaluation of vessels, lymph nodes and organs is limited without intravenous contrast. LOWER CHEST: Cardiac size is enlarged with extensive calcified coronary atherosclerosis. Cardiac blood pool is low in attenuation suggestive systemic anemia. No pericardial effusion. There is a large right pleural effusion with collapse of the right lower lobe. ABDOMEN: LIVER: Liver demonstrates a cirrhotic morphology with a nodular hepatic contour suggesting morphologic changes of cirrhosis. BILE DUCTS: No intrahepatic or extrahepatic biliary ductal dilatation. GALLBLADDER: Gallbladder is absent. STOMACH: Moderate amount of upper abdominal ascites is noted. PANCREAS: There is moderate pancreatic atrophy. SPLEEN: No splenomegaly or focal splenic lesion. ADRENAL GLANDS: No thickening or nodules. KIDNEYS AND URETERS: Kidneys are normal in size and location. No renal or ureteral calculi. Mild to moderate renal cortical thinning and perinephric stranding is seen bilaterally. PELVIS: BLADDER: Urinary bladder is decompressed, limiting assessment. Calcifications are seen in the right anterior pelvic wall, likely related to prior operative procedure. REPRODUCTIVE ORGANS: The patient is status post hysterectomy. BOWEL: Appendix is not definitively identified. Terminal ileum is decompressed and appears unremarkable. Diverticulosis is seen in the descending colon there is mild traction on the distal sigmoid colon related to the pelvic obstruction and adhesions. Dilated fluid-filled loops of small bowel are seen in the right lower quadrant of the abdomen with extensive associated mesenteric edema with transition point in the lower pelvis along the vaginal cuff, likely secondary to adhesions related to the patient's prior hysterectomy. VESSELS: There is mild calcified plaque in the abdominal aorta and iliac arteries. PERITONEUM/RETROPERITO NEUM/LYMPH NODES: No free fluid. No pneumoperitoneum. No lymphadenopathy. ABDOMINAL WALL: Generalized soft tissue edema is seen throughout the abdominal and pelvic wall. SOFT TISSUES: No abnormalities identified. BONES: No acute fracture or aggressive osseous lesion. Moderate multilevel disc disease and osteophyte formation is seen throughout the thoracic spine with bridging osteophytes throughout the thoracic spine. There is moderate to severe disc disease throughout the lumbar spine, most pronounced at L4-5. Right total hip arthroplasty is noted. Generalized osseous demineralization is present. IMPRESSION: High-grade distal small bowel obstruction with transition in the lower pelvis along the vaginal cuff suggesting probable adhesions from the patient's prior hysterectomy with extensive mesenteric edema in appearance concerning for closed loop obstruction. Internal hernia is is also a possibility for the cause of the hernia given the appearance of a closed loop obstruction. Cardiomegaly with extensive coronary atherosclerosis and suspected systemic anemia. Large right pleural effusion with collapse of the right lower lobe and probable superimposed right lower lobe pneumonia. Morphologic changes of cirrhosis. Distal colonic diverticulosis. Additional chronic changes as described. NOTIFICATION: The critical results of the study were discussed with, and acknowledged by Dr. Tory Watkins by telephone on 07/28/2025 at 12:31 AM. Signed by Elvin Liz [facility] Work Phone: CT Abdomen WO contrastOrdere d By: Elvin Liz on 07-28-2025 [facility] Work Phone: Comprehensive metabolic 2000 panelon 07-28-2025 Albumin BCP dye [Mass/Vol] 2.9 g/dL Low 3.4 - 5.0 g/dL [facility] ALP [Catalytic activity/Vol] 167 U/L High 33 - 136 U/L [facility] ALT With P-5'-P [Catalytic activity/Vol] 9 U/L 7 - 45 U/L [facility] Comment on above: Patients treated wit h Sulfasalazine may generate falsely decreased results for ALT. Anion gap [Moles/Vol] 19 mmol/L 10 - 2 0 mmol/L [facility] AST With P-5'-P [Catalytic activity/Vol] 13 U/L 9 - 39 U/L [facility] Bilirubin [Mass/Vol] 0.7 mg/dL 0.0 - 1 .2 mg/dL [facility] Calcium [Mass/Vol] 8.7 mg/dL 8.6 - 10. 3 mg/dL [facility] Chloride [Moles/Vol] 95 mmol/L Low 98 - 10 7 mmol/L [facility] CO2 [Moles/Vol] 25 mmol/L 21 - 32 mmol/L [facility] Creatinine [Mass/Vol] 3.24 mg/dL High 0.50 - 1.05 mg/dL [facility] GFR/1.73 sq M.predicted among non-blacks MDRD (S/P/Bld) [Vol rate/Area] 14 mL/min/{1.73_m2} Low - PINF [facility] Comment on above: Calculations of lalita mated GFR are performed using the 2020 CKD-EPI Study Refit equation without the race variable for the IDMS-Traceable creatinine methods. https://jasn.asnjournals.org/content//ASN.141780 4294 Glucose [Mass/Vol] 149 mg/dL High 74 - 99 mg/dL [facility] Potassium [Moles/Vol] 3.6 mmol/L 3.5 - 5.3 mmol/L [facility] Protein [Mass/Vol] 6.9 g/dL 6.4 - 8.2 g/dL [facility] Sodium [Moles/Vol] 135 mmol/L Low 136 - 145 mmol/L [facility] Urea nitrogen [Mass/Vol] 24 mg/dL High 6 - 23 mg/dL [facility] ED Prov Noteon 07-28-2025 ED Prov Note Normal [facility] H AND Kyler 07-28-2025 H AND P Normal [facility] HEPATITIS B SURFACE ANTIGENo n 07-28-2025 HEPATITIS B SURFACE ANTIGEN Negative Normal Negative [facility] Comment on above: Order Comment: Test performed using Balaji AUDRA immunoassay system Performed By: #### 4 4081 ####[facility] [address] Milton Hinojosa M.D. [id number] Lactateon 07-28-2025 Lactate [Moles/Vol] 1.6 mmol/L 0.4 - 2. 0 mmol/L [facility] Lactate [Moles/Vol] 1.6 mmol/L Normal 0.4-2.[address] [facility] Comment on above: Order Comment: Venip uncture immediately after or during the administration of Metamizole may lead to falsely low results. Testing should be performed immediately prior to Metamizole dosing. Performed By: #### 1 988-5 #### [address] ([id number]) [facility] ([facility]) [address] [place] [address] Lactate [Moles/Vol] 3.6 mmol/L High 0.4 - 2. 0 mmol/L [facility] Lactate [Moles/Vol]on 2024 Interpretation and review of laboratory results Normal [facility] Venipuncture immediately after or during the administration of Metamizole may lead to falsely low results. Testing should be performed immediately prior to Metamizole dosing. [facility] Venipuncture immediately after or during the administration of Metamizole may lead to falsely low results. Testing should be performed immediately prior to Metamizole dosing. [facility] Lipaseon 07-28-2025 Lipase [Catalytic activity/Vol] 8 U/L Low 9 - 82 U/L [facility] Lipase [Catalytic activity/V ol]on 07-28-2025 Interpretation and review of laboratory results Abnormal [facility] Venipuncture immediately after or during the administration of Metamizole may lead to falsely low results. Testing should be performed immediately prior to Metamizole dosing. [facility] Magnesiumon 07-28-2025 Magnesium [Mass/Vol] 1.64 mg/dL 1.60 - 2.40 mg/dL [facility] Magnesium [Mass/Vol]on 07-28 Interpretation and review of laboratory results Normal [facility] No Panel Informationon 07-28 [facility] Interpretation and review of laboratory results Abnormal [facility] OP NOTEon 07-28-2025 OP NOTE Normal [facility] PHOSPHORUSon 07-28-2025 Phosphate [Mass/Vol] 4.5 mg/dL High 2.8-4.1 [facility] Comment on above: Performed By: #### 4 6299 ####[facility] [address] [place] [address] Milton Hinojosa M.D. [id number] [facility] Glucose [Mass/Vol] 149 mg/dL High 65-99 [place] Comment on above: Performed By: #### 4 6982 ####[facility] [address] [place] [address] [id number] [facility] Glucose [Mass/Vol] 130 mg/dL High 65-99 [place] Comment on above: Performed By: #### 4 6956 ####[facility] [address] [place] [address] [id number] [facility] PT/INRon 07-28-2025 INR Coag (PPP) [Relative time] 1.8 {INR} High 0.8-1.1 [facility] Comment on above: Order Comment: Praneeth barajas the induction phase of oral anticoagulation, the INR may not reflect the anticoagulation status of the patient. Therapeutic ranges for INR's are:Most clinical situations: INR 2.0-3.0Mechanical Prosthetic Valve: INR 2.5-3.5Critical: INR >5.0 Performed By: #### 4 6391 ####[facility] [address] [place] [address] Milton Hinojosa M.D. [id number] PT Coag (PPP) [Time] 21.2 s High 11.8-14.3 [facility] Comment on above: Order Comment: Praneeth barajas the induction phase of oral anticoagulation, the INR may not reflect the anticoagulation status of the patient. Therapeutic ranges for INR's are:Most clinical situations: INR 2.0-3.0Mechanical Prosthetic Valve: INR 2.5-3.5Critical: INR >5.0 Performed By: #### 4 6391 ####[facility] [address] [place] [address] Milton Hinojosa M.D. [id number] TISSUE EXAMon 07-28-2025 TISSUE EXAM [facility] Comment on above: Performed By: #### 4 7015 ####[facility] [address] [address] Tyrell Woods M.D. [id number] [address] [place] [address] Milton Hinojosa M.D. [id number] TYPE AND SCREENon 07-28-2025 TYPE AND SCREEN ABORH: AB Positive AB SCREEN: Negative EXPIRATION DATE: 07/31/2025 23:59 EST Normal [facility] Comment on above: Performed By: #### 4 6619 ####[facility] [address] [place] [address] Gwen Caceres MD [id number] [facility] VANCOMYCIN LEVEL, RANDOMon 0 07-28-2025 VANCOMYCIN RANDOM 14.1 mcg/mL [facility] Comment on above: Order Comment: As of 08/2022 vancomycin dosing for [facility] inpatients will be done by Bayesian dosing software rather than off traditional trough values. Please contact the site specific inpatient pharmacy before making dose changes off of trough values alone for admitted patients.No established reference range. Performed By: #### 4 6651 ####[facility] [address] [address] Milton Hinojosa M.D. [id number] VERAB/VERIFY ABORHon 025 ABO group Nom (Bld) AB Normal [facility] Comment on above: Order Comment: Thi s is for confirming/verifying history of ABORh on file for transfusion of blood products. If this is not for transfusion, please order an ABO/RH [[id number]]. If you have any questions or unsure what to order, please call the blood bank. Performed By: #### 1 988-5 #### [address] ([id number]) [facility] ([facility]) [address] [place] [address] D Ag Ql (Bld) Positive [facility] Comment on above: Order Comment: Thi s is for confirming/verifying history of ABORh on file for transfusion of blood products. If this is not for transfusion, please order an ABO/RH [[id number]]. If you have any questions or unsure what to order, please call the blood bank. Performed By: #### 1 988-5 #### ARIANA LONDONO ([id number]) [facility] ([facility]) [address] [place] [address] XR ABDOMEN /KUB/FLAT PLATE/1 VIEWon 07-28-2025 XR ABDOMEN /KUB/FLAT PLATE/1 VIEW [facility] Comment on above: Order Comment: Injur y/Trauma or Illness?:Illness/OtherHow long have you had these symptoms (acute/chronic)?:UnknownReason for exam?:NG/OG tube placementHistory of cancer?:unkSurgeries, chemotherapy, or radiation?:unkType of Exam?:UnknownAdditional signs and symptoms?:. XR ABDOMEN 1 VIEWon 07-28-20 25 XR ABDOMEN 1 VIEW STUDY: Abdomen Radiographs; 07/28/2025 INDICATION: NG Tube placement. COMPARISON: CT Abdomen and Pelvis WO 07/28/2025. ACCESSION NUMBER(S): [id number] ORDERING CLINICIAN: TECHNIQUE: 2 view(s) of the abdomen. FINDINGS: Prominent air-filled loop of small bowel is seen in the midabdomen. Enteric tube tip is seen in the gastric cardia with the sidehole in the distal esophagus. Cholecystectomy clips are seen in the right upper quadrant. There is a small right pleural effusion. Cardiac size is enlarged. There is mild to moderate pulmonary edema. There are no convincing calculi or abnormal calcifications. No focal osseous abnormalities. IMPRESSION: No acute abdominal pathology identified. Enteric tube tip is in the gastric cardia with the sidehole at the GE junction and should be advanced 5 to 10 cm. Suspected CHF with a small right pleural effusion. Signed by Elvin Liz [facility] Comment on above: Order Comment: RN to release order via task on Brain when patient is ready for x-ray confirmation of NG tube placement. XR Abdomen Single viewon No acute abdominal pathology identified. Enteric tube tip is in the gastric cardia with the sidehole at the GE junction and should be advanced 5 to 10 cm. Suspected CHF with a small right pleural effusion. Signed by Elvin Liz TELERADIOLOGY STUDY: Abdomen Radiographs; 07/28/2025 INDICATION: NG Tube placement. COMPARISON: CT Abdomen and Pelvis WO 07/28/2025. ACCESSION NUMBER(S): [id number] ORDERING CLINICIAN: TECHNIQUE: 2 view(s) of the abdomen. FINDINGS: Prominent air-filled loop of small bowel is seen in the midabdomen. Enteric tube tip is seen in the gastric cardia with the sidehole in the distal esophagus. Cholecystectomy clips are seen in the right upper quadrant. There is a small right pleural effusion. Cardiac size is enlarged. There is mild to moderate pulmonary edema. There are no convincing calculi or abnormal calcifications. No focal osseous abnormalities. TELERADIOLOGY Elvin Liz MD - 07/28/2025 STUDY: Abdomen Radiographs; 07/28/2025 INDICATION: NG Tube placement. COMPARISON: CT Abdomen and Pelvis WO 07/28/2025. ACCESSION NUMBER(S): [id number] ORDERING CLINICIAN: TECHNIQUE: 2 view(s) of the abdomen. FINDINGS: Prominent air-filled loop of small bowel is seen in the midabdomen. Enteric tube tip is seen in the gastric cardia with the sidehole in the distal esophagus. Cholecystectomy clips are seen in the right upper quadrant. There is a small right pleural effusion. Cardiac size is enlarged. There is mild to moderate pulmonary edema. There are no convincing calculi or abnormal calcifications. No focal osseous abnormalities. IMPRESSION: No acute abdominal pathology identified. Enteric tube tip is in the gastric cardia with the sidehole at the GE junction and should be advanced 5 to 10 cm. Suspected CHF with a small right pleural effusion. Signed by Elvin Liz [facility] Work Phone: [facility] Work Phone: Radiology Study observation (narrative) [facility] Work Phone: CBC W Auto Differential pane l (Bld)on 07-27-2025 Basophils (Bld) [#/Vol] 0.02 10*3/uL [facility] Basophils/100 WBC (Bld) 0.1 % 0.0 - 2.0 % [facility] Eosinophils (Bld) [#/Vol] 0.00 10*3/uL [facility] Eosinophils/100 WBC (Bld) 0.0 % 0.0 - 6.0 % [facility] Erythrocyte distribution width (RBC) [Ratio] 15.1 % High 11.5 - 14.5 % [facility] Hematocrit (Bld) [Volume fraction] 31.7 % Low 36.0 - 46.0 % [facility] Hemoglobin (Bld) [Mass/Vol] 10.2 g/dL Low 12.0 - 16.0 g/dL [facility] Immature granulocytes (Bld) [#/Vol] 0.06 10*3/uL [facility] Immature granulocytes/100 WBC (Bld) 0.4 % 0.0 - 0.9 % [facility] Comment on above: Immature Granulocyte Count (IG) includes promyelocytes, myelocytes and metamyelocytes but does not include bands. Percent differential counts (%) should be interpreted in the context of the absolute cell counts (cells/UL). Interpretation and review of laboratory results Abnormal [facility] Lymphocytes (Bld) [#/Vol] 1.15 10*3/uL [facility] Lymphocytes/100 WBC (Bld) 8.2 % 13.0 - 44.0 % [facility] MCH (RBC) [Entitic mass] 27.3 pg 26.0 - 34.0 pg [facility] MCHC (RBC) [Mass/Vol] 32.2 g/dL 32.0 - 36.0 g/dL [facility] MCV (RBC) [Entitic vol] 85 fL 80 - 100 fL [facility] Monocytes (Bld) [#/Vol] 0.72 10*3/uL [facility] Monocytes/100 WBC (Bld) 5.2 % 2.0 - 10.0 % [facility] Neutrophils (Bld) [#/Vol] 12.01 10*3/uL High [facility] Comment on above: Percent differential counts (%) should be interpreted in the context of the absolute cell counts (cells/uL). Neutrophils/100 WBC (Bld) 86.1 % 40.0 - 80.0 % [facility] Nucleated RBC/100 WBC (Bld) [Ratio] 0.0 % [facility] Platelets (Bld) [#/Vol] 386 10*3/uL [facility] RBC (Bld) [#/Vol] 3.73 10*6/uL Low [facility] WBC (Bld) [#/Vol] 14.0 10*3/uL High [facility] Basophils (Bld) [#/Vol] 0.02 x10*3/uL Normal 0.00-0.10 [facility] Comment on above: Performed By: #### 5 7021-8 #### [address] ([id number]) [facility] ([facility]) [address] [place] [address] Basophils/100 WBC (Bld) 0.1 % Normal 0.0-2.0 [facility] Comment on above: Performed By: #### 5 7021-8 #### ARIANA LONDONO ([id number]) [facility] ([facility]) [address] [place] [address] Eosinophils (Bld) [#/Vol] 0.00 x10*3/uL Normal 0.00-0.40 [facility] Comment on above: Performed By: #### 7021-8 #### ARIANA LONDONO ([id number]) [facility] ([facility]) [address] [place] [address] Eosinophils/100 WBC (Bld) 0.0 % Normal 0.0-6.0 [facility] Comment on above: Performed By: #### 5 7021-8 #### ARIANA LONDONO ([id number]) [facility] ([facility]) [address] [place], [place] [id number] Erythrocyte distribution width (RBC) [Ratio] 15.1 % High 11.5-14.5 [facility] Comment on above: Performed By: #### 7021-8 #### ARIANA LONDONO ([id number]) [facility] ([facility]) [address] [place] [address] Hematocrit (Bld) [Volume fraction] 31.7 % Low 36.0-46.0 [facility] Comment on above: Performed By: #### 5 7021-8 #### ARIANA LONDONO ([id number]) [facility] ([facility]) [address] [place] [address] Hemoglobin (Bld) [Mass/Vol] 10.2 g/dL Low 12.0-16.0 [facility] Comment on above: Performed By: #### 5 7021-8 #### ARIANA LONDONO ([id number]) [facility] ([facility]) [address] [place] [address] Immature granulocytes (Bld) [#/Vol] 0.06 x10*3/uL Normal 0.00-0.50 [facility] Comment on above: Performed By: #### 5 7021-8 #### ARIANA LONDONO ([id number]) [facility] ([facility]) [address] [place] [address] Immature granulocytes/100 WBC (Bld) 0.4 % Normal 0.0-0.9 [facility] Comment on above: Result Comment: Monica ture Granulocyte Count (IG) includes promyelocytes, myelocytes and metamyelocytes but does not include bands. Percent differential counts (%) should be interpreted in the context of the absolute cell counts (cells/UL). Performed By: #### 5 7021-8 #### ARIANA LONDONO ([id number]) [facility] ([facility]) [address] [place] [address] Lymphocytes (Bld) [#/Vol] 1.15 x10*3/uL Normal 0.80-3.00 [facility] Comment on above: Performed By: #### 5 7021-8 #### ARIANA LONDONO ([id number]) [facility] ([facility]) [address] [place] [address] Lymphocytes/100 WBC (Bld) 8.2 % Normal 13.0-44.0 [facility] Comment on above: Performed By: #### 5 7021-8 #### ARIANA LONDONO ([id number]) [facility] ([facility]) [address] [place] [address]84 MCH (RBC) [Entitic mass] 27.3 pg Normal 26.0-34.0 [facility] Comment on above: Performed By: #### 5 7021-8 #### ARIANA LONDONO ([id number]) [facility] ([facility]) [address] [place] [address] MCHC (RBC) [Mass/Vol] 32.2 g/dL Normal 32.0-36.0 [facility] Comment on above: Performed By: #### 5 7021-8 #### ARIANA LONDONO ([id number]) [facility] ([facility]) [address] [place] [address] MCV (RBC) [Entitic vol] 85 fL Normal 80-100 [facility] Comment on above: Performed By: #### 5 7021-8 #### ARIANA LONDONO ([id number]) [facility] ([facility]) [address] [place] [address] 55598 Monocytes (Bld) [#/Vol] 0.72 x10*3/uL Normal 0.05-0.80 [facility] Comment on above: Performed By: #### 5 7021-8 #### ARIANA LONDONO ([id number]) [facility] ([facility]) [address] [place] [address] 15263 Monocytes/100 WBC (Bld) 5.2 % Normal 2.0-10.0 [facility] Comment on above: Performed By: #### 5 7021-8 #### ARIANA LONDONO ([id number]) [facility] ([facility]) [address] [place] [address] 21640 Neutrophils (Bld) [#/Vol] 12.01 x10*3/uL High 1.60-5.50 [facility] Comment on above: Result Comment: Perc ent differential counts (%) should be interpreted in the context of the absolute cell counts (cells/uL). Performed By: #### 5 7021-8 #### ARIANA LONDONO ([id number]) [facility] ([facility]) [address] [place] [address] 74708 Neutrophils/100 WBC (Bld) 86.1 % Normal 40.0-80.0 [facility] Comment on above: Performed By: #### 5 7021-8 #### ARIANA LONDONO ([id number]) [facility] ([facility]) [address] [place] [address] 15720 Nucleated RBC/100 WBC (Bld) [Ratio] 0.0 /100 WBCs Normal 0.0-0.0 [facility] Comment on above: Performed By: #### 5 7021-8 #### ARIANA LONDONO ([id number]) [facility] ([facility]) [address] [place] [address] Platelets (Bld) [#/Vol] 386 x10*3/uL Normal 150-450 [facility] Comment on above: Performed By: #### 5 7021-8 #### ARIANA CARDENASJANICE ([id number]) [facility] ([facility]) [address] [place] [address] 08461 RBC (Bld) [#/Vol] 3.73 x10*6/uL Low 4.00-5.20 [facility] Comment on above: Performed By: #### 5 7021-8 #### LANE THERESAJANICE ([id number]) [facility] ([facility]) [facility] [place] [address] WBC (Bld) [#/Vol] 14.0 x10*3/uL High 4.4-11.3 [facility] Comment on above: Performed By: #### 5 7021-8 #### L[address] THERESAJANICE ([id number]) [facility] ([facility]) [address] [place] [address] CT ABDOMEN PELVIS WO IV CONT [facility] 07-27-2025 CT ABDOMEN PELVIS WO IV CONTRAST STUDY: CT Abdomen and Pelvis without IV Contrast; 07/28/2025 at 12:04 AM. INDICATION: Lower abdominal pain. COMPARISON: None available. ACCESSION NUMBER(S): [id number] ORDERING CLINICIAN: TORY KUMAR TECHNIQUE: CT of the abdomen and pelvis was performed. Contiguous axial images were obtained at 3 mm slice thickness through the abdomen and pelvis. Coronal and sagittal reconstructions at 3 mm slice thickness were performed. No intravenous contrast was administered. Oral contrast was administered as a component of this study; the patient received approximately QUANTITY mL of TYPE OF CONTRAST by mouth. DICOM images received. Automated mA/kV exposure control was utilized and patient examination was performed in strict accordance with principles of ALARA. FINDINGS: Please note that the evaluation of vessels, lymph nodes and organs is limited without intravenous contrast. LOWER CHEST: Cardiac size is enlarged with extensive calcified coronary atherosclerosis. Cardiac blood pool is low in attenuation suggestive systemic anemia. No pericardial effusion. There is a large right pleural effusion with collapse of the right lower lobe. ABDOMEN: LIVER: Liver demonstrates a cirrhotic morphology with a nodular hepatic contour suggesting morphologic changes of cirrhosis. BILE DUCTS: No intrahepatic or extrahepatic biliary ductal dilatation. GALLBLADDER: Gallbladder is absent. STOMACH: Moderate amount of upper abdominal ascites is noted. PANCREAS: There is moderate pancreatic atrophy. SPLEEN: No splenomegaly or focal splenic lesion. ADRENAL GLANDS: No thickening or nodules. KIDNEYS AND URETERS: Kidneys are normal in size and location. No renal or ureteral calculi. Mild to moderate renal cortical thinning and perinephric stranding is seen bilaterally. PELVIS: BLADDER: Urinary bladder is decompressed, limiting assessment. Calcifications are seen in the right anterior pelvic wall, likely related to prior operative procedure. REPRODUCTIVE ORGANS: The patient is status post hysterectomy. BOWEL: Appendix is not definitively identified. Terminal ileum is decompressed and appears unremarkable. Diverticulosis is seen in the descending colon there is mild traction on the distal sigmoid colon related to the pelvic obstruction and adhesions. Dilated fluid-filled loops of small bowel are seen in the right lower quadrant of the abdomen with extensive associated mesenteric edema with transition point in the lower pelvis along the vaginal cuff, likely secondary to adhesions related to the patient's prior hysterectomy. VESSELS: There is mild calcified plaque in the abdominal aorta and iliac arteries. PERITONEUM/RETROPERITO NEUM/LYMPH NODES: No free fluid. No pneumoperitoneum. No lymphadenopathy. ABDOMINAL WALL: Generalized soft tissue edema is seen throughout the abdominal and pelvic wall. SOFT TISSUES: No abnormalities identified. BONES: No acute fracture or aggressive osseous lesion. Moderate multilevel disc disease and osteophyte formation is seen throughout the thoracic spine with bridging osteophytes throughout the thoracic spine. There is moderate to severe disc disease throughout the lumbar spine, most pronounced at L4-5. Right total hip arthroplasty is noted. Generalized osseous demineralization is present. IMPRESSION: High-grade distal small bowel obstruction with transition in the lower pelvis along the vaginal cuff suggesting probable adhesions from the patient's prior hysterectomy with extensive mesenteric edema in appearance concerning for closed loop obstruction. Internal hernia is is also a possibility for the cause of the hernia given the appearance of a closed loop obstruction. Cardiomegaly with extensive coronary atherosclerosis and suspected systemic anemia. Large right pleural effusion with collapse of the right lower lobe and probable superimposed right lower lobe pneumonia. Morphologic changes of cirrhosis. Distal colonic diverticulosis. Additional chronic changes as described. NOTIFICATION: The critical results of the study were discussed with, and acknowledged by Dr. Tory Watkins by telephone on 07/28/2025 at 12:31 AM. Signed by Evlin Liz [facility] CT Abdomen WO contraston Radiology Study observation (narrative) [facility] Work Phone: Comprehensive metabolic 2000 panelon 07-27-2025 Albumin BCP dye [Mass/Vol] 2.9 g/dL Low 3.4-5.0 [facility] Comment on above: Performed By: #### 2 4323-8 #### ARIANA LONDONO ([id number]) [facility] ([facility]) [address] [place] [address] ALP [Catalytic activity/Vol] 167 U/L High 33-136 [facility] Comment on above: Performed By: #### 2 4323-8 #### ARIANA LONDONO ([id number]) [facility] ([facility]) [address] [place] [address] ALT With P-5'-P [Catalytic activity/Vol] 9 U/L Normal 7-45 [facility] Comment on above: Result Comment: Angelica ents treated with Sulfasalazine may generate falsely decreased results for ALT. Performed By: #### 2 4323-8 #### ARIANA LONDONO ([id number]) [facility] ([facility]) [address] [place] [address] Anion gap [Moles/Vol] 19 mmol/L Normal 10-20 [facility] Comment on above: Performed By: #### 2 4323-8 #### ARIANA LONDONO ([id number]) [facility] ([facility]) [address] [place] [address] AST With P-5'-P [Catalytic activity/Vol] 13 U/L Normal 9-39 [facility] Comment on above: Performed By: #### 2 4323-8 #### ARIANA LONDONO ([id number]) [facility] ([facility]) [address] [place] [address] Bilirubin [Mass/Vol] 0.7 mg/dL Normal 0.0-1.2 [facility] Comment on above: Performed By: #### 2 4323-8 #### ARIANA LONDONO ([id number]) [facility] ([facility]) [address] [place] [address] Calcium [Mass/Vol] 8.7 mg/dL Normal 8.6-10.3 [facility] Comment on above: Performed By: #### 2 4323-8 #### ARIANA LONDONO ([id number]) [facility] ([facility]) [address] [place] [address] Chloride [Moles/Vol] 95 mmol/L Low 98-107 [facility] Comment on above: Performed By: #### 2 4323-8 #### ARIANA LONDONO ([id number]) [facility] ([facility]) [address] [place] [address] CO2 [Moles/Vol] 25 mmol/L Normal 21-32 [facility] Comment on above: Performed By: #### 2 4323-8 #### ARIANA LONDONO ([id number]) [facility] ([facility]) [address] [place] [address] 87833 Creatinine [Mass/Vol] 3.24 mg/dL High 0.50-1.05 [facility] Comment on above: Performed By: #### 2 4323-8 #### ARIANA LONDONO ([id number]) [facility] ([facility]) [address] [place] [address] 92837 Glomerular filtration rate 14 mL/min/1.73m*2 Low >60 [facility] Comment on above: Result Comment: Calc ulations of estimated GFR are performed using the 2020 CKD-EPI Study Refit equation without the race variable for the IDMS-Traceable creatinine methods. https://jasn.asnjournals.org/content/early//ASN.367710 9900 Performed By: #### 2 4323-8 #### ARIANA LONDONO ([id number]) [facility] ([facility]) [address] [place] [address] 53764 Glucose [Mass/Vol] 149 mg/dL High 74-99 [facility] Comment on above: Performed By: #### 2 4323-8 #### ARIANA LONDONO ([id number]) [facility] ([facility]) [address] [place] [address] 64980 Potassium [Moles/Vol] 3.6 mmol/L Normal 3.5-5.3 [facility] Comment on above: Performed By: #### 2 4323-8 #### ARIANA LONDONO ([id number]) [facility] ([facility]) [address] [place] [address] 85296 Protein [Mass/Vol] 6.9 g/dL Normal 6.4-8.2 [facility] Comment on above: Performed By: #### 2 4323-8 #### ARIANA LONDONO ([id number]) [facility] ([facility]) [address] [place] [address] 20528 Sodium [Moles/Vol] 135 mmol/L Low 136-145 [facility] Comment on above: Performed By: #### 2 4323-8 #### ARIANA LONDONO ([id number]) [facility] ([facility]) [address] [place] [address] 26628 Urea nitrogen [Mass/Vol] 24 mg/dL High 6-23 [facility] Comment on above: Performed By: #### 2 4323-8 #### ARIANA LONDONO ([id number]) [facility] ([facility]) [address] [place], [place] [address] ECG 12-LEADon 07-27-2025 ECG 12-LEAD Ventricular Rate 79 QRS Duration 98 Q-T Interval 404 QTC Calculation(Bazett) 463 R Blackwater 5 T Blackwater 122 QRS Count 13 Q Onset 216 T Offset 418 QTC Fredericia 443 Diagnosis Atrial fibrillation Low voltage QRS ST & T wave abnormality, consider lateral ischemia Abnormal ECG When compared with ECG of 27-JUL-2025 23:05, (unconfirmed) Atrial fibrillation has replaced Sinus rhythm Vent. rate has decreased BY 57 BPM QRS duration has increased Non-specific change in ST segment in Inferior leads T wave inversion now evident in Lateral leads See ED provider note for full interpretation and clinical correlation Confirmed by Malia Goode ([id number]) on 08/04/2025 10:56:41 AM Normal [facility] Lactateon 07-27-2025 Lactate [Moles/Vol] 3.6 mmol/L High 0.4-2.[address] [facility] Comment on above: Order Comment: Venip uncture immediately after or during the administration of Metamizole may lead to falsely low results. Testing should be performed immediately prior to Metamizole dosing. Performed By: #### 1 988-5 #### ARIANA LONDONO ([id number]) [facility] ([facility]) [address] [place] [address] 81308 Magnesiumon 07-27-2025 Magnesium [Mass/Vol] 1.64 mg/dL Normal 1.60-2.40 [facility] Comment on above: Performed By: #### 1 988-5 #### ARIANA LONDONO ([id number]) [facility] ([facility]) [address] [place], [place] [address] Triacylglycerol lipaseon Lipase [Catalytic activity/Vol] 8 U/L Low 9-82 [facility] Comment on above: Order Comment: Venip uncture immediately after or during the administration of Metamizole may lead to falsely low results. Testing should be performed immediately prior to Metamizole dosing. Performed By: #### 1 988-5 #### ARIANA LONDONO ([id number]) [facility] ([facility]) [address] [place] [address] 94250 C reactive proteinon 025 CRP [Mass/Vol] 9.89 mg/dL High <1.00 [facility] Comment on above: Performed By: #### 1 988-5 #### ARIANA LONDONO ([id number]) [facility] ([facility]) [address] [place] [address] 66879 CBC W Auto Differential pane l (Bld)on 07-23-2025 Basophils (Bld) [#/Vol] 0.03 x10*3/uL Normal 0.00-0.10 [facility] Comment on above: Performed By: #### 5 7021-8 #### ARIANA LONDONO ([id number]) [facility] ([facility]) [address] [place] [address] 86151 Basophils/100 WBC (Bld) 0.6 % Normal 0.0-2.0 [facility] Comment on above: Performed By: #### 5 7021-8 #### ARIANA LONDONO ([id number]) [facility] ([facility]) [address] [place] [address] 57371 Eosinophils (Bld) [#/Vol] 0.50 x10*3/uL High 0.00-0.40 [facility] Comment on above: Performed By: #### 5 7021-8 #### ARIANA LONDONO ([id number]) [facility] ([facility]) [address] [place] [address] 42675 Eosinophils/100 WBC (Bld) 9.9 % Normal 0.0-6.0 [facility] Comment on above: Performed By: #### 5 7021-8 #### ARIANA LONDONO ([id number]) [facility] ([facility]) [address] [place] [address] 02093 Erythrocyte distribution width (RBC) [Ratio] 15.8 % High 11.5-14.5 [facility] Comment on above: Performed By: #### 5 7021-8 #### ARIANA LONDONO ([id number]) [facility] ([facility]) [address] [place] [address] 27539 Hematocrit (Bld) [Volume fraction] 29.0 % Low 36.0-46.0 [facility] Comment on above: Performed By: #### 5 7021-8 #### ARIANA LONDONO ([id number]) [facility] ([facility]) [address] [place] [address] 37934 Hemoglobin (Bld) [Mass/Vol] 8.7 g/dL Low 12.0-16.0 [facility] Comment on above: Performed By: #### 5 7021-8 #### ARIANA LONDONO ([id number]) [facility] ([facility]) [address] [place] [address] 56298 Immature granulocytes (Bld) [#/Vol] 0.03 x10*3/uL Normal 0.00-0.50 [facility] Comment on above: Performed By: #### 5 7021-8 #### ARIANA LONDONO ([id number]) [facility] ([facility]) [address] [place] [address] 68153 Immature granulocytes/100 WBC (Bld) 0.6 % Normal 0.0-0.9 [facility] Comment on above: Result Comment: Monica ture Granulocyte Count (IG) includes promyelocytes, myelocytes and metamyelocytes but does not include bands. Percent differential counts (%) should be interpreted in the context of the absolute cell counts (cells/UL). Performed By: #### 5 7021-8 #### ARIANA LONDONO ([id number]) [facility] ([facility]) [address] [place] [address] 13176 Lymphocytes (Bld) [#/Vol] 1.51 x10*3/uL Normal 0.80-3.00 [facility] Comment on above: Performed By: #### 5 7021-8 #### ARIANA LONDONO ([id number]) [facility] ([facility]) [address] [place] [address] 45500 Lymphocytes/100 WBC (Bld) 29.8 % Normal 13.0-44.0 [facility] Comment on above: Performed By: #### 5 7021-8 #### ARIANA LONDONO ([id number]) [facility] ([facility]) [address] [place] [address] 46354 MCH (RBC) [Entitic mass] 27.3 pg Normal 26.0-34.0 [facility] Comment on above: Performed By: #### 5 7021-8 #### ARIANA LONDONO ([id number]) [facility] ([facility]) [address] [place] [address] 84931 MCHC (RBC) [Mass/Vol] 30.0 g/dL Low 32.0-36.0 [facility] Comment on above: Performed By: #### 5 7021-8 #### ARIANA LONDONO ([id number]) [facility] ([facility]) [address] [place] [address] 08877 MCV (RBC) [Entitic vol] 91 fL Normal 80-100 [facility] Comment on above: Performed By: #### 5 7021-8 #### ARIANA LONDONO ([id number]) [facility] ([facility]) [address] [place] [address] 91158 Monocytes (Bld) [#/Vol] 0.78 x10*3/uL Normal 0.05-0.80 [facility] Comment on above: Performed By: #### 5 7021-8 #### ARIANA LONDONO ([id number]) [facility] ([facility]) [address] [place] [address] 50309 Monocytes/100 WBC (Bld) 15.4 % Normal 2.0-10.0 [facility] Comment on above: Performed By: #### 5 7021-8 #### ARIANA LONDONO ([id number]) [facility] ([facility]) [address] [place] [address] 63260 Neutrophils (Bld) [#/Vol] 2.22 x10*3/uL Normal 1.60-5.50 [facility] Comment on above: Result Comment: Perc ent differential counts (%) should be interpreted in the context of the absolute cell counts (cells/uL). Performed By: #### 5 7021-8 #### ARIANA LONDONO ([id number]) [facility] ([facility]) [address] [place] [address] 13064 Neutrophils/100 WBC (Bld) 43.7 % Normal 40.0-80.0 [facility] Comment on above: Performed By: #### 5 7021-8 #### ARIANA LONDONO ([id number]) [facility] ([facility]) [address] [place] [address] 39388 Nucleated RBC/100 WBC (Bld) [Ratio] 0.0 /100 WBCs Normal 0.0-0.0 [facility] Comment on above: Performed By: #### 5 7021-8 #### ARIANA LONDONO ([id number]) [facility] ([facility]) [address] [place] [address] 45065 Platelets (Bld) [#/Vol] 340 x10*3/uL Normal 150-450 [facility] Comment on above: Performed By: #### 5 7021-8 #### ARIANA LONDONO ([id number]) [facility] ([facility]) [address] [place] [address] RBC (Bld) [#/Vol] 3.19 x10*6/uL Low 4.00-5.20 [facility] Comment on above: Performed By: #### 5 7021-8 #### ARIANA LONDONO ([id number]) [facility] ([facility]) [address] [place] [address] WBC (Bld) [#/Vol] 5.1 x10*3/uL Normal 4.4-11.[address] [facility] Comment on above: Performed By: #### 5 7021-8 #### ARIANA LONDONO ([id number]) [facility] ([facility]) [address] [place] [address] Comprehensive metabolic 2000 panelon 07-23-2025 Albumin BCP dye [Mass/Vol] 2.3 g/dL Low 3.4-5.0 [facility] Comment on above: Performed By: #### 2 4323-8 #### ARIANA LONDONO ([id number]) [facility] ([facility]) [address] [place] [address] ALP [Catalytic activity/Vol] 148 U/L High 33-136 [facility] Comment on above: Performed By: #### 2 4323-8 #### ARIANA LONDONO ([id number]) [facility] ([facility]) [address] [place] [address] ALT With P-5'-P [Catalytic activity/Vol] 6 U/L Low 7-45 [facility] Comment on above: Result Comment: Angelica ents treated with Sulfasalazine may generate falsely decreased results for ALT. Performed By: #### 2 4323-8 #### ARIANA LONDONO ([id number]) [facility] ([facility]) [address] [place] [address] Anion gap [Moles/Vol] 11 mmol/L Normal 10-20 [facility] Comment on above: Performed By: #### 2 4322-8 #### ARIANA LONDONO ([id number]) [facility] ([facility]) [address] [place] [address] AST With P-5'-P [Catalytic activity/Vol] 11 U/L Normal 9-39 [facility] Comment on above: Performed By: #### 2 432-8 #### ARIANA LONDONO ([id number]) [facility] ([facility]) [address] [place] [address] Bilirubin [Mass/Vol] 0.5 mg/dL Normal 0.0-1.2 [facility] Comment on above: Performed By: #### 2 4322-8 #### ARIANA LONDONO ([id number]) [facility] ([facility]) [address] [place] [address] 27187 Calcium [Mass/Vol] 8.2 mg/dL Low 8.6-10.3 [facility] Comment on above: Performed By: #### 2 4322-8 #### ARIANA LONDONO ([id number]) [facility] ([facility]) [address] [place] [address] Chloride [Moles/Vol] 101 mmol/L Normal 98-107 [facility] Comment on above: Performed By: #### 2 4322-8 #### ARIANA LONDONO ([id number]) [facility] ([facility]) [address] [place] [address] CO2 [Moles/Vol] 32 mmol/L Normal 21-32 [facility] Comment on above: Performed By: #### 2 4322-8 #### ARIANA LONDONO ([id number]) [facility] ([facility]) [address] [place] [address] Creatinine [Mass/Vol] 4.36 mg/dL High 0.50-1.05 [facility] Comment on above: Performed By: #### 2 432-8 #### ARIANA LONDONO ([id number]) [facility] ([facility]) [address] [place] [address] Glomerular filtration rate 10 mL/min/1.73m*2 Low >60 [facility] Comment on above: Result Comment: Calc ulations of estimated GFR are performed using the 2020 CKD-EPI Study Refit equation without the race variable for the IDMS-Traceable creatinine methods. https://jasn.asnjournals.org/content/early/ASN.211917 9429 Performed By: #### 2 4323-8 #### ARIANA LONDONO ([id number]) [facility] ([facility]) [address] [place] [address] 43231 Glucose [Mass/Vol] 75 mg/dL Normal 74-99 [facility] Comment on above: Performed By: #### 2 4323-8 #### ARIANA LONDONO ([id number]) [facility] ([facility]) [address] [place] [address] 58183 Potassium [Moles/Vol] 4.7 mmol/L Normal 3.5-5.3 [facility] Comment on above: Performed By: #### 2 4323-8 #### ARIANA LONDONO ([id number]) [facility] ([facility]) [address] [place] [address] 14596 Protein [Mass/Vol] 5.4 g/dL Low 6.4-8.2 [facility] Comment on above: Performed By: #### 2 4323-8 #### ARIANA LONDONO ([id number]) [facility] ([facility]) [address] [place] [address] 75607 Sodium [Moles/Vol] 139 mmol/L Normal 136-145 [facility] Comment on above: Performed By: #### 2 4323-8 #### ARIANA LONDONO ([id number]) [facility] ([facility]) [address] [place] [address] 37765 Urea nitrogen [Mass/Vol] 33 mg/dL High 6-23 [facility] Comment on above: Performed By: #### 2 4323-8 #### ARIANA LODNONO ([id number]) [facility] ([facility]) [address] [place] [address] 54678 ESR Westergren method (Bld) [Velocity]on 07-23-2025 ESR (Bld) [Velocity] 110 mm/h High 0-30 [facility] Comment on above: Performed By: #### 4 537-7 #### OSCAR Méndez ([id number]) [facility] ([facility]) [address] [place] [address] 61815 HbA1c (Bld) [Mass fraction]o n 07-23-2025 Average glucose Estimated from glycated hemoglobin (Bld) [Mass/Vol] 126 mg/dL Normal Not Established [facility] Comment on above: Order Comment: Diagn osis of Diabetes-Adults Non-Diabetic: < or = 5.6% Increased risk for developing diabetes: 5.7-6.4% Diagnostic of diabetes: > or = 6.5% Performed By: #### 4 548-4 #### OSCAR Méndez ([id number]) [facility] ([facility]) [address] [place] [address] 75432 Hemoglobin A1c/Hemoglobin.to tony 07-23-2025 HbA1c (Bld) [Mass fraction] 6.0 % High See comment [facility] Comment on above: Order Comment: Diagn osis of Diabetes-Adults Non-Diabetic: < or = 5.6% Increased risk for developing diabetes: 5.7-6.4% Diagnostic of diabetes: > or = 6.5% Performed By: #### 4 548-4 #### OSCAR Méndez ([id number]) [facility] ([facility]) [address] [place] [address] 58527 Lipid 1996 panelon 5 Cholesterol [Mass/Vol] 91 mg/dL Normal 0-199 [facility] Comment on above: Result Comment: Age Desirable Borderline High High 0-19 Y 0 - 169 170 - 199 >/= 200 20-24 Y 0 - 189 190 - 224 >/= 225 >24 Y 0 - 199 200 - 239 >/= 240 All ranges are based on fasting samples. Specific therapeutic targets will vary based on patient-specific cardiac risk. Pediatric guidelines reference:Pediatrics 2011, 128(S5).Adult guidelines reference: NCEP ATPIII Guidelines,ZAIRE 2001, 258:2486-97 Venipuncture immediately after or during the administration of Metamizole may lead to falsely low results. Testing should be performed immediately prior to Metamizole dosing. Performed By: #### 2 4331-1 #### ARIANA LONDONO ([id number]) [facility] ([facility]) [facility] [place] [address] Cholesterol in HDL [Mass/Vol] 40.0 mg/dL Normal [facility] Comment on above: Result Comment: Age Very Low Low Normal High 0-19 Y < 35 < 40 40-45 ---- 20-24 Y ---- < 40 >45 ---- >24 Y ---- < 40 40-60 >60 Performed By: #### 2 4331-1 #### ARIANA LONDONO ([id number]) [facility] ([facility]) [address] [place] [address] 49663 Cholesterol in LDL [Mass/Vol] 35 mg/dL Normal <=99 [facility] Comment on above: Result Comment: Near Borderline AGE Desirable Optimal High High Very High 0-19 Y 0 - 109 --- 110-129 >/= 130 ---- 20-24 Y 0 - 119 --- 120-159 >/= 160 ---- >24 Y 0 - 99 100-129 130-159 160-189 >/=190 LDL Cholesterol is calculated using the Friedewald equation. Performed By: #### 2 4331-1 #### ARIANA LONDONO ([id number]) [facility] ([facility]) [address] [place] [address] 86013 Cholesterol in VLDL [Mass/Vol] 16 mg/dL Normal 0-40 [facility] Comment on above: Performed By: #### 2 4331-1 #### ARIANA LONDONO ([id number]) [facility] ([facility]) [address] [place] [address] 15894 CHOLESTEROL/HDL RATIO 2.3 Normal [facility] Comment on above: Result Comment: Ref Values Desirable < 3.4 High Risk > 5.0 Performed By: #### 2 4331-1 #### ARIANA LONDONO ([id number]) [facility] ([facility]) [address] [place] [address] NON HDL CHOLESTEROL 51 mg/dL Normal 0-[address] [facility] Comment on above: Result Comment: Age Desirable Borderline High High Very High 0-19 Y 0 - 119 120 - 144 >/= 145 >/= 160 20-24 Y 0 - 149 150 - 189 >/= 190 ---- >24 Y 30 mg/dL above LDL Cholesterol goal Performed By: #### 2 4331-1 #### ARIANA LONDONO ([id number]) [facility] ([facility]) [facility] [place] [address] Triglyceride [Mass/Vol] 78 mg/dL Normal 0-149 [facility] Comment on above: Result Comment: Age Desirable Borderline High Very High SEX:B mg/dL mg/dL mg/dL mg/dL <=14D 86-277 ---- ---- ---- 15D-365D 55-277 ---- ---- ---- 1Y-9Y 0-74 75-99 >=100 ---- 10Y-19Y 0-89 90-129 >=130 ---- 20Y-24Y 0-114 115-149 >=150 ---- >= 25Y 0-149 150-199 200-499 >=500 Venipuncture immediately after or during the administration of Metamizole may lead to falsely low results. Testing should be performed immediately prior to Metamizole dosing. Performed By: #### 2 4331-1 #### ARIANA LONDONO ([id number]) [facility] ([facility]) [facility] [place] [id number] Thyrotropinon 07-23-2025 TSH Qn 3.43 m[IU]/L Normal 0.44-3.98 [facility] Comment on above: Order Comment: TSH t esting is performed using different testing methodology at [facility] than at other [facility]. Direct result comparisons should only be made within the same method. Performed By: #### 3 016-3 #### ARIANA LONDONO ([id number]) [facility] ([facility]) [facility] [place] [id number] Vancomycin^troughon 07-23-20 25 Vancomycin trough [Mass/Vol] 16.1 ug/mL Normal 5.0-20.0 [facility] Comment on above: Result Comment: Ther apeutic Ranges: Peak (all ages): 30.0-40.0 ug/mL Trough (all ages): 10.0-20.0 ug/mL Vancomycin trough concentrations drawn immediately prior to the next dose at steady-state are preferred for concentration-guided monitoring of patients treated with vancomycin. Reference: Am J Health-Syst Pharm. 2020; 77(11):835-864. Performed By: #### 4 092-3 #### ARIANA LONDONO ([id number]) [facility] ([facility]) [address] [place] [address] CALCIUM, IONIZEDon 5 CALCIUM IONIZED 4.7 mg/dL Normal 4.5-5.3 [facility] Comment on above: Performed By: #### 4 5190 ####[facility] [address] [place] [address] Milton Hinojosa M.D. [id number] CBCon 07-20-2025 AUTO NRBC 0.0 % Normal [facility] Comment on above: Performed By: #### 4 [id number] ####[facility] [address] [place], [place] [address] Milton Hinojosa M.D. [id number] AUTO NRBC ABS COUNT 0.00 K/mcL Normal 0.00-0.00 [facility] Comment on above: Performed By: #### 4 [id number] ####[facility] [address] [place] [address] Milton Hinojosa M.D. [id number] Erythrocyte distribution width (RBC) [Ratio] 15.4 % High 11.6-14.8 [facility] Comment on above: Performed By: #### 4 [id number] ####[facility] [address] [place] [address] Milton Hinojosa M.D. [id number] Hematocrit (Bld) [Volume fraction] 27.4 % Low 36.0-46.0 [facility] Comment on above: Performed By: #### 4 [id number] ####[facility] [address] [place] [address] Milton Hinojosa M.D. [id number] Hemoglobin (Bld) [Mass/Vol] 8.5 g/dL Low 12.0-16.0 [facility] Comment on above: Performed By: #### 4 [id number] ####[facility] [address] [place] [address] Milton Hinojosa M.D. [id number] MCH (RBC) [Entitic mass] 28.1 pg Normal 26.0-34.0 [facility] Comment on above: Performed By: #### 4 [id number] ####[facility] [address] [place] [address] Milton Hinojosa M.D. [id number] MCV (RBC) [Entitic vol] 90.4 fL Normal 80.0-100.0 [facility] Comment on above: Performed By: #### 4 [id number] ####[facility] [address] [place] [address] Milton Hinojosa M.D. [id number] MEAN CORPUSCULAR HEMOGLOBIN CONC 31.0 g/dL Normal 31.0-37.0 [facility] Comment on above: Performed By: #### 4 [id number] ####[facility] [address] [place], [place] [address] Milton Hinojosa M.D. [id number] Platelet mean volume (Bld) [Entitic vol] 9.4 fL Normal 9.4-12.4 [facility] Comment on above: Performed By: #### 4 [id number] ####[facility] [address] [place], [place] [address] Milton Hinojosa M.D. [id number] Platelets (Bld) [#/Vol] 271 10*3/uL Normal 150-400 [facility] Comment on above: Performed By: #### 4 [id number] ####[facility] [address] [place] [address] Milton Hinojosa M.D. [id number] RBC (Bld) [#/Vol] 3.03 10*6/uL Low 4.00-5.20 [facility] Comment on above: Performed By: #### 4 [id number] ####[facility] [address] [place] [address] Milton Hinojosa M.D. [id number] WBC (Bld) [#/Vol] 4.52 10*3/uL Normal 4.50-11.00 [facility] Comment on above: Performed By: #### 4 [id number] ####[facility] [address] [place] [address] Milton Hinojosa M.D. [id number] CBC panel Auto (Bld)on 07-20 Erythrocyte distribution width (RBC) [Entitic vol] 15.4 % High 11.6 - 14.8 % [facility] Hematocrit (Bld) [Volume fraction] 27.4 % Low 36.0 - 46.0 % [facility] Hemoglobin (Bld) [Mass/Vol] 8.5 g/dL Low 12.0 - 16.0 g/dL [facility] Interpretation and review of laboratory results Abnormal [facility] MCH (RBC) [Entitic mass] 28.1 pg 26.0 - 34.0 pg [facility] MCHC (RBC) [Mass/Vol] 31 g/dL 31.0 - 37.0 g/dL [facility] MCV (RBC) [Entitic vol] 90.4 fL 80.0 - 100.0 fL [facility] Nucleated RBC (Bld) [#/Vol] 0 10*3/uL [facility] Nucleated RBC/100 WBC (Bld) [Ratio] 0 % [facility] Platelet mean volume (Bld) [Entitic vol] 9.4 fL 9.4 - 12.4 fL [facility] Platelets (Bld) [#/Vol] 271 10*3/uL [facility] RBC (Bld) [#/Vol] 3.03 10*6/uL Low [facility] ealt WBC (Bld) [#/Vol] 4.52 10*3/uL [facility] Calcium, Ionizedon Calcium.ionized [Mass/Vol] 4.7 mg/dL 4.5 - 5.3 mg/dL [facility] Calcium.ionized [Mass/Vol]on 07-20-2025 Interpretation and review of laboratory results Normal [facility] Disch Summon 07-20-2025 Disch Summ Normal [facility] Glucose (Bld) [Mass/Vol]on 0 07-20-2025 Glucose [Mass/Vol] 110 mg/dL High 65 - 99 mg/dL [facility] Interpretation and review of laboratory results Abnormal [facility] Glucose [Mass/Vol] 67 mg/dL 65 - 99 mg/dL [place] [facility] Interpretation and review of laboratory results Normal [facility] MAGNESIUM LEVELon 07-20-2025 Magnesium [Mass/Vol] 1.9 mg/dL Normal 1.6-2.4 [facility] Comment on above: Performed By: #### 4 6109 ####[facility] [address] [place] [address] Milton Hinojosa M.D. [id number] Magnesiumon 07-20-2025 Magnesium [Mass/Vol] 1.9 mg/dL 1.6 - 2 .4 mg/dL [facility] Magnesium [Mass/Vol]on 07-20 Interpretation and review of laboratory results Normal [facility] No Panel Informationon 07-20 [facility] POC GLUCOSE - RALSon 025 Glucose [Mass/Vol] 110 mg/dL High 65-99 [place] Comment on above: Performed By: #### 4 6982 ####[facility] [address] [place] [address] [id number] [facility] Glucose [Mass/Vol] 67 mg/dL Normal 65-99 [place] Comment on above: Performed By: #### 4 6993 ####[facility] [address] [place], [place] [id number] [facility] RENAL FUNCTION PANELon 07-20 Albumin [Mass/Vol] 2.4 g/dL Low 3.2-5.2 [place] Comment on above: Order Comment: [facility] has implemented the eGFR calculation approach that does not have a coefficient for race that conforms to the NKF-ASN Task Force Recommendations. Performed By: #### 4 6449 ####[facility] [address] [place] [address] Milton Hinojosa M.D. [id number] Anion gap [Moles/Vol] 12 mmol/L Normal 10-20 [facility] Comment on above: Order Comment: [facility] has implemented the eGFR calculation approach that does not have a coefficient for race that conforms to the NKF-ASN Task Force Recommendations. Performed By: #### 4 6449 ####[facility] [address] [place], [place] [address] Milton Hinojosa M.D. [id number] Calcium [Mass/Vol] 8.0 mg/dL Low 8.4-10.2 [place] Comment on above: Order Comment: [facility] has implemented the eGFR calculation approach that does not have a coefficient for race that conforms to the NKF-ASN Task Force Recommendations. Performed By: #### 4 6449 ####[facility] [address] [place], [place] [address] Milton Hinojosa M.D. [id number] Chloride [Moles/Vol] 98 mmol/L Normal 98-108 [facility] Comment on above: Order Comment: [facility] has implemented the eGFR calculation approach that does not have a coefficient for race that conforms to the NKF-ASN Task Force Recommendations. Performed By: #### 4 6449 ####[facility] [address] [place], [place] [address] Milton Hinojosa M.D. [id number] Creatinine [Mass/Vol] 3.81 mg/dL High 0.60-1.20 [facility] Comment on above: Order Comment: [facility] has implemented the eGFR calculation approach that does not have a coefficient for race that conforms to the NKF-ASN Task Force Recommendations. Performed By: #### 4 6449 ####[facility] [address] [place], [place] [address] Milton Hionjosa M.D. [id number] EGFR 12 mL/min/1.73 m2 Low >=60 [facility] Comment on above: Order Comment: [facility] has implemented the eGFR calculation approach that does not have a coefficient for race that conforms to the NKF-ASN Task Force Recommendations. Result Comment: Lalita mated GFR was calculated using the 2020 CKD-EPI creatinine equation. Performed By: #### 4 6449 ####[facility] [address] [place], [place] [address] Milton Hinojosa M.D. [id number] Glucose [Mass/Vol] 90 mg/dL Normal 65-99 [place] Comment on above: Order Comment: [facility] has implemented the eGFR calculation approach that does not have a coefficient for race that conforms to the NKF-ASN Task Force Recommendations. Performed By: #### 4 6449 ####[facility] [address] [place], [place] [address] Milton Hinojosa M.D. [id number] HCO3 (Bld) [Moles/Vol] 28 mmol/L Normal 21-32 [facility] Comment on above: Order Comment: [facility] has implemented the eGFR calculation approach that does not have a coefficient for race that conforms to the NKF-ASN Task Force Recommendations. Performed By: #### 4 6449 ####[facility] [address] [place], [place] [address] Milton Hinojosa M.D. [id number] Phosphate [Mass/Vol] 3.8 mg/dL Normal 2.8-4.1 [facility] Comment on above: Order Comment: [facility] has implemented the eGFR calculation approach that does not have a coefficient for race that conforms to the NKF-ASN Task Force Recommendations. Performed By: #### 4 6449 ####[facility] [address] [place] [address] Milton Hinojosa M.D. [id number] Potassium [Moles/Vol] 4.1 mmol/L Normal 3.5-5.1 [facility] Comment on above: Order Comment: [facility] has implemented the eGFR calculation approach that does not have a coefficient for race that conforms to the NKF-ASN Task Force Recommendations. Performed By: #### 4 6449 ####[facility] [address] [place], [place] [address] Milton Hinojosa M.D. [id number] Sodium [Moles/Vol] 134 mmol/L Low 135-145 [place] Comment on above: Order Comment: [facility] has implemented the eGFR calculation approach that does not have a coefficient for race that conforms to the NKF-ASN Task Force Recommendations. Performed By: #### 4 6449 ####[facility] [address] [place] [address] Milton Hinojosa M.D. [id number] Urea nitrogen [Mass/Vol] 37 mg/dL High 8-25 [facility] Comment on above: Order Comment: [facility] has implemented the eGFR calculation approach that does not have a coefficient for race that conforms to the NKF-ASN Task Force Recommendations. Performed By: #### 4 6449 ####[facility] [address] [place] [address] Milton Hinojosa M.D. [id number] Urea nitrogen/Creatinine [Mass ratio] 9.7 mg/mg Low 10.0-20.0 [facility] Comment on above: Order Comment: [facility] has implemented the eGFR calculation approach that does not have a coefficient for race that conforms to the NKF-ASN Task Force Recommendations. Performed By: #### 4 6449 ####[facility] [address] [place] [address] Milton Hinojosa M.D. [id number] Renal function 2000 panelon 07-20-2025 Albumin [Mass/Vol] 2.4 g/dL Low 3.2 - 5.2 g/dL [facility] Anion gap [Moles/Vol] 12 mmol/L 10 - 2 0 mmol/L [facility] Calcium [Mass/Vol] 8 mg/dL Low 8.4 - 10. 2 mg/dL [facility] Chloride [Moles/Vol] 98 mmol/L 98 - 10 8 mmol/L [facility] Creatinine [Mass/Vol] 3.81 mg/dL High 0.60 - 1.20 mg/dL [facility] GFR/1.73 sq M.predicted CKD-EPI (S/P/Bld) [Vol rate/Area] 12 Low - PINF [facility] Glucose [Mass/Vol] 90 mg/dL 65 - 99 mg/dL [facility] HCO3 [Moles/Vol] 28 mmol/L 21 - 32 mmol/L [facility] Interpretation and review of laboratory results Abnormal [facility] Phosphate [Mass/Vol] 3.8 mg/dL 2.8 - 4 .1 mg/dL [facility] Potassium [Moles/Vol] 4.1 mmol/L 3.5 - 5.1 mmol/L [facility] Sodium [Moles/Vol] 134 mmol/L Low 135 - 145 mmol/L [facility] Urea nitrogen [Mass/Vol] 37 mg/dL High 8 - 25 mg/dL [facility] Urea nitrogen/Creatinine [Mass ratio] 9.7 mg/mg Low 10.0 - 20.0 [facility] VANCOMYCIN LEVEL, RANDOMon 0 07-20-2025 VANCOMYCIN RANDOM 19.1 mcg/mL Normal [place] Comment on above: Order Comment: Pre-h emodialysis vanco levelAs of 08/2022 vancomycin dosing for [facility] inpatients will be done by Bayesian dosing software rather than off traditional trough values. Please contact the site specific inpatient pharmacy before making dose changes off of trough values alone for admitted patients.No established reference range. Performed By: #### 4 6651 ####[facility] [address] [place] [address] Milton Hinojosa M.D. [id number] Vancomycin Level, Randomon 0 07-20-2025 Vancomycin [Mass/Vol] 19.1 mcg/mL [facility] CALCIUM, IONIZEDon CALCIUM IONIZED 4.8 mg/dL Normal 4.5-5.3 [facility] Comment on above: Performed By: #### 4 5190 ####[facility] [address] [place] [address] Milton Hinojosa M.D. [id number] CBCon 07-19-2025 AUTO NRBC 0.0 % Normal [facility] Comment on above: Performed By: #### 4 [id number] ####[facility] [address] [place], [place] [address] Milton Hinojosa M.D. [id number] AUTO NRBC ABS COUNT 0.00 K/mcL Normal 0.00-0.00 [facility] Comment on above: Performed By: #### 4 [id number] ####[facility] [address] [place], [place] [address] Milton Hinojosa M.D. [id number] Erythrocyte distribution width (RBC) [Ratio] 15.3 % High 11.6-14.8 [facility] Comment on above: Performed By: #### 4 [id number] ####[facility] [address] [place], [place] [address] Milton Hinojosa M.D. [id number] Hematocrit (Bld) [Volume fraction] 28.5 % Low 36.0-46.0 [facility] Comment on above: Performed By: #### 4 5281 ####[facility] [address] [place], [place] [address] Milton Hinojosa M.D. [id number] Hemoglobin (Bld) [Mass/Vol] 8.7 g/dL Low 12.0-16.0 [facility] Comment on above: Performed By: #### 4 5268 ####[facility] [address] [place] [address] Milton Hinojosa M.D. [id number] MCH (RBC) [Entitic mass] 27.8 pg Normal 26.0-34.0 [facility] Comment on above: Performed By: #### 4 5218 ####[facility] [address] [place], [place] [address] Milton Hinojosa M.D. [id number] MCV (RBC) [Entitic vol] 91.1 fL Normal 80.0-100.0 [facility] Comment on above: Performed By: #### 4 5218 ####[facility] [address] [place] [address] Milton Hinojosa M.D. [id number] MEAN CORPUSCULAR HEMOGLOBIN CONC 30.5 g/dL Low 31.0-37.0 [facility] Comment on above: Performed By: #### 4 5218 ####[facility] [address] [place], [place] [address] Milton Hinojosa M.D. [id number] Platelet mean volume (Bld) [Entitic vol] 9.0 fL Low 9.4-12.4 [facility] Comment on above: Performed By: #### 4 [id number] ####[facility] [address] [place], [place] [address] Milton Hinojosa M.D. [id number] Platelets (Bld) [#/Vol] 241 10*3/uL Normal 150-400 [facility] Comment on above: Performed By: #### 4 5218 ####[facility] [address] [place] [address] Milton Hinojosa M.D. [id number] RBC (Bld) [#/Vol] 3.13 10*6/uL Low 4.00-5.20 [facility] Comment on above: Performed By: #### 4 5218 ####[facility] [address] [place], [place] [address] Milton Hinojosa M.D. [id number] WBC (Bld) [#/Vol] 4.97 10*3/uL Normal 4.50-11.00 [facility] Comment on above: Performed By: #### 4 [id number] ####[facility] [address] [place] [address] Milton Hinojosa M.D. [id number] CBC panel Auto (Bld)on 07-19 Erythrocyte distribution width (RBC) [Entitic vol] 15.3 % High 11.6 - 14.8 % [facility] Hematocrit (Bld) [Volume fraction] 28.5 % Low 36.0 - 46.0 % [facility] Hemoglobin (Bld) [Mass/Vol] 8.7 g/dL Low 12.0 - 16.0 g/dL [facility] Interpretation and review of laboratory results Abnormal [facility] MCH (RBC) [Entitic mass] 27.8 pg 26.0 - 34.0 pg [facility] MCHC (RBC) [Mass/Vol] 30.5 g/dL Low 31.0 - 37.0 g/dL [facility] MCV (RBC) [Entitic vol] 91.1 fL 80.0 - 100.0 fL [facility] Nucleated RBC (Bld) [#/Vol] 0 10*3/uL [facility] Nucleated RBC/100 WBC (Bld) [Ratio] 0 % [facility] Platelet mean volume (Bld) [Entitic vol] 9 fL Low 9.4 - 12.4 fL [facility] Platelets (Bld) [#/Vol] 241 10*3/uL [facility] RBC (Bld) [#/Vol] 3.13 10*6/uL Low [facility] WBC (Bld) [#/Vol] 4.97 10*3/uL [facility] Calcium, Ionizedon Calcium.ionized [Mass/Vol] 4.8 mg/dL 4.5 - 5.3 mg/dL [facility] Calcium.ionized [Mass/Vol]on 07-19-2025 Interpretation and review of laboratory results Normal [facility] Glucose (Bld) [Mass/Vol]on 0 07-19-2025 Glucose [Mass/Vol] 120 mg/dL High 65 - 99 mg/dL [facility] Interpretation and review of laboratory results Abnormal [facility] Glucose [Mass/Vol] 107 mg/dL High 65 - 99 mg/dL [facility] Interpretation and review of laboratory results Abnormal [facility] Glucose [Mass/Vol] 95 mg/dL 65 - 99 mg/dL [facility] Interpretation and review of laboratory results Normal [facility] Glucose [Mass/Vol] 69 mg/dL 65 - 99 mg/dL [facility] Interpretation and review of laboratory results Normal [facility] MAGNESIUM LEVELon 07-19-2025 Magnesium [Mass/Vol] 1.8 mg/dL Normal 1.6-2.4 [facility] Comment on above: Performed By: #### 4 6109 ####[facility] [address] [place] [address] Milton Hinojosa M.D. [id number] Magnesiumon 07-19-2025 Magnesium [Mass/Vol] 1.8 mg/dL 1.6 - 2 .4 mg/dL [facility] Magnesium [Mass/Vol]on 07-19 Interpretation and review of laboratory results Normal [facility] No Panel Informationon 07-19 [facility] POC GLUCOSE - RALSon 025 Glucose [Mass/Vol] 120 mg/dL High 65-99 [place] Comment on above: Performed By: #### 4 6904 ####[facility] [address] [place] [address] [id number] [facility] Glucose [Mass/Vol] 107 mg/dL High 65-99 [place] Comment on above: Performed By: #### 4 7308 ####[facility] [address] [place] [address] [id number] [facility] Glucose [Mass/Vol] 95 mg/dL Normal 65-99 [place] Comment on above: Performed By: #### 4 6913 ####[facility] [address] [place] [address] [id number] [facility] Glucose [Mass/Vol] 69 mg/dL Normal 65-99 [place] Comment on above: Performed By: #### 4 6932 ####[facility] [address] [place] [address] [id number] [facility] RENAL FUNCTION PANELon 07-19 Albumin [Mass/Vol] 2.6 g/dL Low 3.2-5.2 [place] Comment on above: Order Comment: [facility] has implemented the eGFR calculation approach that does not have a coefficient for race that conforms to the NKF-ASN Task Force Recommendations. Performed By: #### 4 6449 ####[facility] [address] [place], [place] [address] Milton Hinojosa M.D. [id number] Anion gap [Moles/Vol] 15 mmol/L Normal 10-20 [facility] Comment on above: Order Comment: [facility] has implemented the eGFR calculation approach that does not have a coefficient for race that conforms to the NKF-ASN Task Force Recommendations. Performed By: #### 4 6449 ####[facility] [address] [place], [place] [address] Milton Hinojosa M.D. [id number] Calcium [Mass/Vol] 8.5 mg/dL Normal 8.4-10.2 [place] Comment on above: Order Comment: [facility] has implemented the eGFR calculation approach that does not have a coefficient for race that conforms to the NKF-ASN Task Force Recommendations. Performed By: #### 4 6449 ####[facility] [address] [place] [address] Milton Hinojosa M.D. [id number] Chloride [Moles/Vol] 98 mmol/L Normal 98-108 [facility] Comment on above: Order Comment: [facility] has implemented the eGFR calculation approach that does not have a coefficient for race that conforms to the NKF-ASN Task Force Recommendations. Performed By: #### 4 6449 ####[facility] [address] [place] [address] Milton Hinojosa M.D. [id number] Creatinine [Mass/Vol] 3.74 mg/dL High 0.60-1.20 [facility] Comment on above: Order Comment: [facility] has implemented the eGFR calculation approach that does not have a coefficient for race that conforms to the NKF-ASN Task Force Recommendations. Performed By: #### 4 6449 ####[facility] [address] [place], [place] [address] Milton Hinojosa M.D. [id number] EGFR 12 mL/min/1.73 m2 Low >=60 [facility] Comment on above: Order Comment: [facility] has implemented the eGFR calculation approach that does not have a coefficient for race that conforms to the NKF-ASN Task Force Recommendations. Result Comment: Lalita mated GFR was calculated using the 2020 CKD-EPI creatinine equation. Performed By: #### 4 6449 ####[facility] [address] [place], [place] [address] Milton Hinojosa M.D. [id number] Glucose [Mass/Vol] 110 mg/dL High 65-99 [place] Comment on above: Order Comment: [facility] has implemented the eGFR calculation approach that does not have a coefficient for race that conforms to the NKF-ASN Task Force Recommendations. Performed By: #### 4 [id number] ####[facility] [address] [place], [place] [address] Milton Hinojosa M.D. [id number] HCO3 (Bld) [Moles/Vol] 28 mmol/L Normal 21-32 [facility] Comment on above: Order Comment: [facility] has implemented the eGFR calculation approach that does not have a coefficient for race that conforms to the NKF-ASN Task Force Recommendations. Performed By: #### 4 [id number] ####[facility] [address] [place], [place] [address] Milton Hinojosa M.D. [id number] Phosphate [Mass/Vol] 3.6 mg/dL Normal 2.8-4.1 [facility] Comment on above: Order Comment: [facility] has implemented the eGFR calculation approach that does not have a coefficient for race that conforms to the NKF-ASN Task Force Recommendations. Performed By: #### 4 [id number] ####[facility] [address] [place], [place] [address] Milton Hinojosa M.D. [id number] Potassium [Moles/Vol] 4.7 mmol/L Normal 3.5-5.1 [facility] Comment on above: Order Comment: [facility] has implemented the eGFR calculation approach that does not have a coefficient for race that conforms to the NKF-ASN Task Force Recommendations. Performed By: #### 4 [id number] ####[facility] [address] [place], [place] [address] Milton Hinojosa M.D. [id number] Sodium [Moles/Vol] 136 mmol/L Normal 135-145 [place] Comment on above: Order Comment: [facility] has implemented the eGFR calculation approach that does not have a coefficient for race that conforms to the NKF-ASN Task Force Recommendations. Performed By: #### 4 [id number] ####[facility] [address] [place] [address] Milton Hinojosa M.D. [id number] Urea nitrogen [Mass/Vol] 31 mg/dL High 8-25 [facility] Comment on above: Order Comment: [facility] has implemented the eGFR calculation approach that does not have a coefficient for race that conforms to the NKF-ASN Task Force Recommendations. Performed By: #### 4 [id number] ####[facility] [address] [place] [address] Milton Hinojosa M.D. [id number] Urea nitrogen/Creatinine [Mass ratio] 8.3 mg/mg Low 10.0-20.0 [facility] Comment on above: Order Comment: [facility] has implemented the eGFR calculation approach that does not have a coefficient for race that conforms to the NKF-ASN Task Force Recommendations. Performed By: #### 4 [id number] ####[facility] [address] [place] [address] Milton Hinojosa M.D. [id number] Renal function 2000 panelon 07-19-2025 Albumin [Mass/Vol] 2.6 g/dL Low 3.2 - 5.2 g/dL [facility] Anion gap [Moles/Vol] 15 mmol/L 10 - 2 0 mmol/L [facility] Calcium [Mass/Vol] 8.5 mg/dL 8.4 - 10. 2 mg/dL [facility] Chloride [Moles/Vol] 98 mmol/L 98 - 10 8 mmol/L [facility] Creatinine [Mass/Vol] 3.74 mg/dL High 0.60 - 1.20 mg/dL [facility] GFR/1.73 sq M.predicted CKD-EPI (S/P/Bld) [Vol rate/Area] 12 Low - PINF [facility] Glucose [Mass/Vol] 110 mg/dL High 65 - 99 mg/dL [facility] HCO3 [Moles/Vol] 28 mmol/L 21 - 32 mmol/L [facility] Interpretation and review of laboratory results Abnormal [facility] Phosphate [Mass/Vol] 3.6 mg/dL 2.8 - 4 .1 mg/dL [facility] Potassium [Moles/Vol] 4.7 mmol/L 3.5 - 5.1 mmol/L [facility] Sodium [Moles/Vol] 136 mmol/L 135 - 145 mmol/L [facility] Urea nitrogen [Mass/Vol] 31 mg/dL High 8 - 25 mg/dL [facility] Urea nitrogen/Creatinine [Mass ratio] 8.3 mg/mg Low 10.0 - 20.0 [facility] CALCIUM, IONIZEDon 5 CALCIUM IONIZED 4.8 mg/dL Normal 4.5-5.3 [facility] Comment on above: Performed By: #### 4 [id number] ####[facility] [address] [place] [address] Milton Hinojosa M.D. [id number] CBCon 07-18-2025 AUTO NRBC 0.0 % Normal [facility] Comment on above: Performed By: #### 4 [id number] ####[facility] [address] [place], [place] [address] Milton Hinojosa M.D. [id number] AUTO NRBC ABS COUNT 0.00 K/mcL Normal 0.00-0.00 [facility] Comment on above: Performed By: #### 4 [id number] ####[facility] [address] [place] [address] Milton Hinojosa M.D. [id number] Erythrocyte distribution width (RBC) [Ratio] 15.6 % High 11.6-14.8 [facility] Comment on above: Performed By: #### 4 [id number] ####[facility] [address] [place] [address] Milton Hinojosa M.D. [id number] Hematocrit (Bld) [Volume fraction] 28.0 % Low 36.0-46.0 [facility] Comment on above: Performed By: #### 4 [id number] ####[facility] [address] [place], [place] [address] Milton Hinojosa M.D. [id number] Hemoglobin (Bld) [Mass/Vol] 8.5 g/dL Low 12.0-16.0 [facility] Comment on above: Performed By: #### 4 [id number] ####[facility] [address] [place], [place] [address] Milton Hinojosa M.D. [id number] MCH (RBC) [Entitic mass] 28.2 pg Normal 26.0-34.0 [facility] Comment on above: Performed By: #### 4 [id number] ####[facility] [address] [place] [address] Milton Hinojosa M.D. [id number] MCV (RBC) [Entitic vol] 93.0 fL Normal 80.0-100.0 [facility] Comment on above: Performed By: #### 4 [id number] ####[facility] [address] [place], [place] [address] Miltno Hinojosa M.D. [id number] MEAN CORPUSCULAR HEMOGLOBIN CONC 30.4 g/dL Low 31.0-37.0 [facility] Comment on above: Performed By: #### 4 [id number] ####[facility] [address] [place] [address] Milton Hinojosa M.D. [id number] Platelet mean volume (Bld) [Entitic vol] 9.3 fL Low 9.4-12.4 [facility] Comment on above: Performed By: #### 4 [id number] ####[facility] [address] [place], [place] [address] Milton Hinojosa M.D. [id number] Platelets (Bld) [#/Vol] 219 10*3/uL Normal 150-400 [facility] Comment on above: Performed By: #### 4 [id number] ####[facility] [address] [place], [place] [address] Milton Hinojosa M.D. [id number] RBC (Bld) [#/Vol] 3.01 10*6/uL Low 4.00-5.20 [facility] Comment on above: Performed By: #### 4 [id number] ####[facility] [address] [place], [place] [address] Milton Hinojosa M.D. [id number] WBC (Bld) [#/Vol] 4.43 10*3/uL Low 4.50-11.00 [facility] Comment on above: Performed By: #### 4 [id number] ####[facility] [address] [place], [place] [address] Milton Hinojosa M.D. [id number] CBC panel Auto (Bld)on 07-18 Erythrocyte distribution width (RBC) [Entitic vol] 15.6 % High 11.6 - 14.8 % [facility] Hematocrit (Bld) [Volume fraction] 28 % Low 36.0 - 46.0 % [facility] Hemoglobin (Bld) [Mass/Vol] 8.5 g/dL Low 12.0 - 16.0 g/dL [facility] Interpretation and review of laboratory results Abnormal [facility] MCH (RBC) [Entitic mass] 28.2 pg 26.0 - 34.0 pg [facility] MCHC (RBC) [Mass/Vol] 30.4 g/dL Low 31.0 - 37.0 g/dL [facility] MCV (RBC) [Entitic vol] 93 fL 80.0 - 100.0 fL [facility] Nucleated RBC (Bld) [#/Vol] 0 10*3/uL [facility] Nucleated RBC/100 WBC (Bld) [Ratio] 0 % [facility] Platelet mean volume (Bld) [Entitic vol] 9.3 fL Low 9.4 - 12.4 fL [facility] Platelets (Bld) [#/Vol] 219 10*3/uL [facility] RBC (Bld) [#/Vol] 3.01 10*6/uL Low [facility] WBC (Bld) [#/Vol] 4.43 10*3/uL Low [facility] Calcium, Ionizedon Calcium.ionized [Mass/Vol] 4.8 mg/dL 4.5 - 5.3 mg/dL [facility] Calcium.ionized [Mass/Vol]on 07-18-2025 Interpretation and review of laboratory results Normal [facility] Glucose (Bld) [Mass/Vol]on 0 07-18-2025 Glucose [Mass/Vol] 132 mg/dL High 65 - 99 mg/dL [facility] Interpretation and review of laboratory results Abnormal [facility] Glucose [Mass/Vol] 142 mg/dL High 65 - 99 mg/dL [facility] Interpretation and review of laboratory results Abnormal [facility] Glucose [Mass/Vol] 78 mg/dL 65 - 99 mg/dL [facility] Interpretation and review of laboratory results Normal [facility] Glucose [Mass/Vol] 71 mg/dL 65 - 99 mg/dL [facility] Interpretation and review of laboratory results Normal [facility] MAGNESIUM LEVELon 07-18-2025 Magnesium [Mass/Vol] 1.6 mg/dL Normal 1.6-2.4 [facility] Comment on above: Performed By: #### 4 6109 ####[facility] [address] [place] [address] Milton Hinojosa M.D. [id number] Magnesiumon 07-18-2025 Magnesium [Mass/Vol] 1.6 mg/dL 1.6 - 2 .4 mg/dL [facility] Magnesium [Mass/Vol]on 07-18 Interpretation and review of laboratory results Normal [facility] No Panel Informationon 07-18 [facility] POC GLUCOSE - RALSon 025 Glucose [Mass/Vol] 132 mg/dL High 65-99 [place] Comment on above: Performed By: #### 4 6926 ####[facility] [address] [place] [address] [id number] [facility] Glucose [Mass/Vol] 142 mg/dL High 65-99 [place] Comment on above: Performed By: #### 4 6916 ####[facility] [address] [place] [address] [id number] [facility] Glucose [Mass/Vol] 78 mg/dL Normal 65-99 [place] Comment on above: Performed By: #### 4 6989 ####[facility] [address] [place] [address] [id number] [facility] Glucose [Mass/Vol] 71 mg/dL Normal 65-99 [place] Comment on above: Performed By: #### 4 7721 ####[facility] [address] [place] [address] [id number] [facility] RENAL FUNCTION PANELon 07-18 Albumin [Mass/Vol] 2.5 g/dL Low 3.2-5.2 [place] Comment on above: Order Comment: [facility] has implemented the eGFR calculation approach that does not have a coefficient for race that conforms to the NKF-ASN Task Force Recommendations. Performed By: #### 4 6449 ####[facility] [address] [place] [address] Milton Hinojosa M.D. [id number] Anion gap [Moles/Vol] 10 mmol/L Normal 10-20 [facility] Comment on above: Order Comment: [facility] has implemented the eGFR calculation approach that does not have a coefficient for race that conforms to the NKF-ASN Task Force Recommendations. Performed By: #### 4 6449 ####[facility] [address] [place] [address] Milton Hinojosa M.D. [id number] Calcium [Mass/Vol] 8.1 mg/dL Low 8.4-10.2 [place] Comment on above: Order Comment: [facility] has implemented the eGFR calculation approach that does not have a coefficient for race that conforms to the NKF-ASN Task Force Recommendations. Performed By: #### 4 6449 ####[facility] [address] [place] [address] Milton Hinojosa M.D. [id number] Chloride [Moles/Vol] 100 mmol/L Normal 98-108 [facility] Comment on above: Order Comment: [facility] has implemented the eGFR calculation approach that does not have a coefficient for race that conforms to the NKF-ASN Task Force Recommendations. Performed By: #### 4 6449 ####[facility] [address] [place] [address] Milton Hinojosa M.D. [id number] Creatinine [Mass/Vol] 4.11 mg/dL High 0.60-1.20 [facility] Comment on above: Order Comment: [facility] has implemented the eGFR calculation approach that does not have a coefficient for race that conforms to the NKF-ASN Task Force Recommendations. Performed By: #### 4 6449 ####[facility] [address] [place] [address] Mliton Hinojosa M.D. [id number] EGFR 11 mL/min/1.73 m2 Low >=60 [facility] Comment on above: Order Comment: [facility] has implemented the eGFR calculation approach that does not have a coefficient for race that conforms to the NKF-ASN Task Force Recommendations. Result Comment: Lalita mated GFR was calculated using the 2020 CKD-EPI creatinine equation. Performed By: #### 4 6449 ####[facility] [address] [place] [address] Milton Hinojosa M.D. [id number] Glucose [Mass/Vol] 74 mg/dL Normal 65-99 [place] Comment on above: Order Comment: [facility] has implemented the eGFR calculation approach that does not have a coefficient for race that conforms to the NKF-ASN Task Force Recommendations. Performed By: #### 4 6449 ####[facility] [address] [place], [place] [address] Milton Hinojosa M.D. [id number] HCO3 (Bld) [Moles/Vol] 31 mmol/L Normal 21-32 [facility] Comment on above: Order Comment: [facility] has implemented the eGFR calculation approach that does not have a coefficient for race that conforms to the NKF-ASN Task Force Recommendations. Performed By: #### 4 [id number] ####[facility] [address] [place], [place] [address] Milton Hinojosa M.D. [id number] Phosphate [Mass/Vol] 4.5 mg/dL High 2.8-4.1 [facility] Comment on above: Order Comment: [facility] has implemented the eGFR calculation approach that does not have a coefficient for race that conforms to the NKF-ASN Task Force Recommendations. Performed By: #### 4 6449 ####[facility] [address] [place], [place] [address] Milton Hinojosa M.D. [id number] Potassium [Moles/Vol] 4.3 mmol/L Normal 3.5-5.1 [facility] Comment on above: Order Comment: [facility] has implemented the eGFR calculation approach that does not have a coefficient for race that conforms to the NKF-ASN Task Force Recommendations. Performed By: #### 4 6449 ####[facility] [address] [place] [address] Milton Hinojosa M.D. [id number] Sodium [Moles/Vol] 137 mmol/L Normal 135-145 [place] Comment on above: Order Comment: [facility] has implemented the eGFR calculation approach that does not have a coefficient for race that conforms to the NKF-ASN Task Force Recommendations. Performed By: #### 4 6449 ####[facility] [address] [place], [place] [address] Milton Hinojosa M.D. [id number] Urea nitrogen [Mass/Vol] 28 mg/dL High 8-25 [facility] Comment on above: Order Comment: [facility] has implemented the eGFR calculation approach that does not have a coefficient for race that conforms to the NKF-ASN Task Force Recommendations. Performed By: #### 4 6449 ####[facility] [address] [place] [address] Milton Hinojosa M.D. [id number] Urea nitrogen/Creatinine [Mass ratio] 6.8 mg/mg Low 10.0-20.0 [facility] Comment on above: Order Comment: [facility] has implemented the eGFR calculation approach that does not have a coefficient for race that conforms to the NKF-ASN Task Force Recommendations. Performed By: #### 4 6449 ####[facility] [address] [place] [address] Milton Hinojosa M.D. [id number] Renal function 2000 panelon 07-18-2025 Albumin [Mass/Vol] 2.5 g/dL Low 3.2 - 5.2 g/dL [facility] Anion gap [Moles/Vol] 10 mmol/L 10 - 2 0 mmol/L [facility] Calcium [Mass/Vol] 8.1 mg/dL Low 8.4 - 10. 2 mg/dL [facility] Chloride [Moles/Vol] 100 mmol/L 98 - 10 8 mmol/L [facility] Creatinine [Mass/Vol] 4.11 mg/dL High 0.60 - 1.20 mg/dL [facility] GFR/1.73 sq M.predicted CKD-EPI (S/P/Bld) [Vol rate/Area] 11 Low - PINF [facility] Glucose [Mass/Vol] 74 mg/dL 65 - 99 mg/dL [facility] HCO3 [Moles/Vol] 31 mmol/L 21 - 32 mmol/L [facility] Interpretation and review of laboratory results Abnormal [facility] Phosphate [Mass/Vol] 4.5 mg/dL High 2.8 - 4 .1 mg/dL [facility] Potassium [Moles/Vol] 4.3 mmol/L 3.5 - 5.1 mmol/L [facility] Sodium [Moles/Vol] 137 mmol/L 135 - 145 mmol/L [facility] Urea nitrogen [Mass/Vol] 28 mg/dL High 8 - 25 mg/dL [facility] Urea nitrogen/Creatinine [Mass ratio] 6.8 mg/mg Low 10.0 - 20.0 [facility] VANCOMYCIN LEVEL, RANDOMon 0 07-18-2025 VANCOMYCIN RANDOM 21.1 mcg/mL Normal [place] Comment on above: Order Comment: Pre-H D vanco levelAs of 08/2022 vancomycin dosing for [facility] inpatients will be done by Bayesian dosing software rather than off traditional trough values. Please contact the site specific inpatient pharmacy before making dose changes off of trough values alone for admitted patients.No established reference range. Performed By: #### 4 [id number] ####[facility] [address] [place] [address] Milton Hinojosa M.D. [id number] Vancomycin Level, Randomon 0 07-18-2025 Vancomycin [Mass/Vol] 21.1 mcg/mL [facility] CALCIUM, IONIZEDon CALCIUM IONIZED 4.5 mg/dL Normal 4.5-5.3 [facility] Comment on above: Performed By: #### 4 [id number] ####[facility] [address] [place], [place] [address] Milton Hinojosa M.D. [id number] CBCon 07-17-2025 AUTO NRBC 0.0 % Normal [facility] Comment on above: Performed By: #### 4 [id number] ####[facility] [address] [place] [address] Milton Hinojosa M.D. [id number] AUTO NRBC ABS COUNT 0.00 K/mcL Normal 0.00-0.00 [facility] Comment on above: Performed By: #### 4 [id number] ####[facility] [address] [place] [address] Milton Hinojosa M.D. [id number] Erythrocyte distribution width (RBC) [Ratio] 15.5 % High 11.6-14.8 [facility] Comment on above: Performed By: #### 4 [id number] ####[facility] [address] [place], [place] [address] Milton Hinojosa M.D. [id number] Hematocrit (Bld) [Volume fraction] 27.0 % Low 36.0-46.0 [facility] Comment on above: Performed By: #### 4 [id number] ####[facility] [address] [place], [place] [address] Milton Hinojosa M.D. [id number] Hemoglobin (Bld) [Mass/Vol] 8.4 g/dL Low 12.0-16.0 [facility] Comment on above: Performed By: #### 4 [id number] ####[facility] [address] [place], [place] [address] Milton Hinojosa M.D. [id number] MCH (RBC) [Entitic mass] 27.7 pg Normal 26.0-34.0 [facility] Comment on above: Performed By: #### 4 [id number] ####[facility] [address] [place] [address] Milton Hinojosa M.D. [id number] MCV (RBC) [Entitic vol] 89.1 fL Normal 80.0-100.0 [facility] Comment on above: Performed By: #### 4 [id number] ####[facility] [address] [place] [address] Milton Hinojosa M.D. [id number] MEAN CORPUSCULAR HEMOGLOBIN CONC 31.1 g/dL Normal 31.0-37.0 [facility] Comment on above: Performed By: #### 4 [id number] ####[facility] [address] [place], [place] [address] Milton Hinojosa M.D. [id number] Platelet mean volume (Bld) [Entitic vol] 10.1 fL Normal 9.4-12.4 [facility] Comment on above: Performed By: #### 4 [id number] ####[facility] [address] [place], [place] [address] Milton Hinojosa M.D. [id number] Platelets (Bld) [#/Vol] 196 10*3/uL Normal 150-400 [facility] Comment on above: Performed By: #### 4 [id number] ####[facility] [address] [place], [place] [address]Zeina Hinojosa M.D. [id number] RBC (Bld) [#/Vol] 3.03 10*6/uL Low 4.00-5.20 [facility] Comment on above: Performed By: #### 4 [id number] ####[facility] [address] [place], [place] [address] Milton Hinojosa M.D. [id number] WBC (Bld) [#/Vol] 3.84 10*3/uL Low 4.50-11.00 [facility] Comment on above: Performed By: #### 4 [id number] ####[facility] [address] [place] [address] Milton Hinojosa M.D. [id number] CBC panel Auto (Bld)on 07-17 Erythrocyte distribution width (RBC) [Entitic vol] 15.5 % High 11.6 - 14.8 % [facility] Hematocrit (Bld) [Volume fraction] 27 % Low 36.0 - 46.0 % [facility] Hemoglobin (Bld) [Mass/Vol] 8.4 g/dL Low 12.0 - 16.0 g/dL [facility] Interpretation and review of laboratory results Abnormal [facility] MCH (RBC) [Entitic mass] 27.7 pg 26.0 - 34.0 pg [facility] MCHC (RBC) [Mass/Vol] 31.1 g/dL 31.0 - 37.0 g/dL [facility] MCV (RBC) [Entitic vol] 89.1 fL 80.0 - 100.0 fL [facility] Nucleated RBC (Bld) [#/Vol] 0 10*3/uL [facility] Nucleated RBC/100 WBC (Bld) [Ratio] 0 % [facility] Platelet mean volume (Bld) [Entitic vol] 10.1 fL 9.4 - 12.4 fL [facility] Platelets (Bld) [#/Vol] 196 10*3/uL [facility] RBC (Bld) [#/Vol] 3.03 10*6/uL Low [facility] WBC (Bld) [#/Vol] 3.84 10*3/uL Low [facility] Calcium, Ionizedon Calcium.ionized [Mass/Vol] 4.5 mg/dL 4.5 - 5.3 mg/dL [facility] Calcium.ionized [Mass/Vol]on 07-17-2025 Interpretation and review of laboratory results Normal [facility] Glucose (Bld) [Mass/Vol]on 0 07-17-2025 Glucose [Mass/Vol] 119 mg/dL High 65 - 99 mg/dL [facility] Interpretation and review of laboratory results Abnormal [facility] Glucose [Mass/Vol] 94 mg/dL 65 - 99 mg/dL [facility] Interpretation and review of laboratory results Normal [facility] Glucose [Mass/Vol] 98 mg/dL 65 - 99 mg/dL [facility] Interpretation and review of laboratory results Normal [facility] Glucose [Mass/Vol] 80 mg/dL 65 - 99 mg/dL [facility] Interpretation and review of laboratory results Normal [facility] MAGNESIUM LEVELon 07-17-2025 Magnesium [Mass/Vol] 1.8 mg/dL Normal 1.6-2.4 [facility] Comment on above: Performed By: #### 4 6109 ####[facility] [address] [place] [address] Milton Hinojosa M.D. [id number] Magnesiumon 07-17-2025 Magnesium [Mass/Vol] 1.8 mg/dL 1.6 - 2 .4 mg/dL [facility] Magnesium [Mass/Vol]on 07-17 Interpretation and review of laboratory results Normal [facility] No Panel Informationon 07-17 [facility] POC [facility] Glucose [Mass/Vol] 119 mg/dL High 65-99 [place] Comment on above: Performed By: #### 4 [id number] ####[facility] [address] [place] [address] [id number] [facility] Glucose [Mass/Vol] 94 mg/dL Normal 65-99 [place] Comment on above: Performed By: #### 4 6932 ####[facility] [address] [place] [address] [id number] [facility] Glucose [Mass/Vol] 98 mg/dL Normal 65-99 [place] Comment on above: Performed By: #### 4 6903 ####[facility] [address] [place] [address] [id number] [facility] Glucose [Mass/Vol] 80 mg/dL Normal 65-99 [place] Comment on above: Performed By: #### 4 6914 ####[facility] [address] [place] [address] [id number] [facility] RENAL FUNCTION PANELon 07-17 Albumin [Mass/Vol] 2.4 g/dL Low 3.2-5.2 [place] Comment on above: Order Comment: [facility] has implemented the eGFR calculation approach that does not have a coefficient for race that conforms to the NKF-ASN Task Force Recommendations. Performed By: #### 4 6449 ####[facility] [address] [place], [place] [address] Milton Hinojosa M.D. [id number] Anion gap [Moles/Vol] 11 mmol/L Normal 10-20 [facility] Comment on above: Order Comment: [facility] has implemented the eGFR calculation approach that does not have a coefficient for race that conforms to the NKF-ASN Task Force Recommendations. Performed By: #### 4 6449 ####[facility] [address] [place], [place] [address] Milton Hinojosa M.D. [id number] Calcium [Mass/Vol] 8.0 mg/dL Low 8.4-10.2 [place] Comment on above: Order Comment: [facility] has implemented the eGFR calculation approach that does not have a coefficient for race that conforms to the NKF-ASN Task Force Recommendations. Performed By: #### 4 6449 ####[facility] [address] [place], [place] [address] Milton Hinojosa M.D. [id number] Chloride [Moles/Vol] 96 mmol/L Low 98-108 [facility] Comment on above: Order Comment: [facility] has implemented the eGFR calculation approach that does not have a coefficient for race that conforms to the NKF-ASN Task Force Recommendations. Performed By: #### 4 6449 ####[facility] [address] [place], [place] [address] Milton Hinojosa M.D. [id number] Creatinine [Mass/Vol] 3.33 mg/dL High 0.60-1.20 [facility] Comment on above: Order Comment: [facility] has implemented the eGFR calculation approach that does not have a coefficient for race that conforms to the NKF-ASN Task Force Recommendations. Performed By: #### 4 6449 ####[facility] [address] [place], [place] [address] Milton Hinojosa M.D. [id number] EGFR 14 mL/min/1.73 m2 Low >=60 [facility] Comment on above: Order Comment: [facility] has implemented the eGFR calculation approach that does not have a coefficient for race that conforms to the NKF-ASN Task Force Recommendations. Result Comment: Lalita mated GFR was calculated using the 2020 CKD-EPI creatinine equation. Performed By: #### 4 6449 ####[facility] [address] [place], [place] [address] Milton Hinojosa M.D. [id number] Glucose [Mass/Vol] 72 mg/dL Normal 65-99 [place] Comment on above: Order Comment: [facility] has implemented the eGFR calculation approach that does not have a coefficient for race that conforms to the NKF-ASN Task Force Recommendations. Performed By: #### 4 6449 ####[facility] [address] [place], [place] [address] Milton Hinojosa M.D. [id number] HCO3 (Bld) [Moles/Vol] 29 mmol/L Normal 21-32 [facility] Comment on above: Order Comment: [facility] has implemented the eGFR calculation approach that does not have a coefficient for race that conforms to the NKF-ASN Task Force Recommendations. Performed By: #### 4 6449 ####[facility] [address] [place] [address] Milton Hinojosa M.D. [id number] Phosphate [Mass/Vol] 3.2 mg/dL Normal 2.8-4.1 [facility] Comment on above: Order Comment: [facility] has implemented the eGFR calculation approach that does not have a coefficient for race that conforms to the NKF-ASN Task Force Recommendations. Performed By: #### 4 6449 ####[facility] [address] [place] [address] Milton Hinojosa M.D. [id number] Potassium [Moles/Vol] 4.3 mmol/L Normal 3.5-5.1 [facility] Comment on above: Order Comment: [facility] has implemented the eGFR calculation approach that does not have a coefficient for race that conforms to the NKF-ASN Task Force Recommendations. Performed By: #### 4 6449 ####[facility] [address] [place] [address] Milton Hinojosa M.D. [id number] Sodium [Moles/Vol] 132 mmol/L Low 135-145 [place] Comment on above: Order Comment: [facility] has implemented the eGFR calculation approach that does not have a coefficient for race that conforms to the NKF-ASN Task Force Recommendations. Performed By: #### 4 6449 ####[facility] [address] [place] [address] Milton Hinojosa M.D. [id number] Urea nitrogen [Mass/Vol] 26 mg/dL High 8-25 [facility] Comment on above: Order Comment: [facility] has implemented the eGFR calculation approach that does not have a coefficient for race that conforms to the NKF-ASN Task Force Recommendations. Performed By: #### 4 6449 ####[facility] [address] [place] [address] Milton Hinojosa M.D. [id number] Urea nitrogen/Creatinine [Mass ratio] 7.8 mg/mg Low 10.0-20.0 [facility] Comment on above: Order Comment: [facility] has implemented the eGFR calculation approach that does not have a coefficient for race that conforms to the NKF-ASN Task Force Recommendations. Performed By: #### 4 6449 ####[facility] [address] [place] [address] Milton Hinojosa M.D. [id number] Renal function 2000 panelon 07-17-2025 Albumin [Mass/Vol] 2.4 g/dL Low 3.2 - 5.2 g/dL [facility] Anion gap [Moles/Vol] 11 mmol/L 10 - 2 0 mmol/L [facility] Calcium [Mass/Vol] 8 mg/dL Low 8.4 - 10. 2 mg/dL [facility] Chloride [Moles/Vol] 96 mmol/L Low 98 - 10 8 mmol/L [facility] Creatinine [Mass/Vol] 3.33 mg/dL High 0.60 - 1.20 mg/dL [facility] GFR/1.73 sq M.predicted CKD-EPI (S/P/Bld) [Vol rate/Area] 14 Low - PINF [facility] Glucose [Mass/Vol] 72 mg/dL 65 - 99 mg/dL [facility] HCO3 [Moles/Vol] 29 mmol/L 21 - 32 mmol/L [facility] Interpretation and review of laboratory results Abnormal [facility] Phosphate [Mass/Vol] 3.2 mg/dL 2.8 - 4 .1 mg/dL [facility] Potassium [Moles/Vol] 4.3 mmol/L 3.5 - 5.1 mmol/L [facility] Sodium [Moles/Vol] 132 mmol/L Low 135 - 145 mmol/L [facility] Urea nitrogen [Mass/Vol] 26 mg/dL High 8 - 25 mg/dL [facility] Urea nitrogen/Creatinine [Mass ratio] 7.8 mg/mg Low 10.0 - 20.0 [facility] CALCIUM, IONIZEDon CALCIUM IONIZED 4.7 mg/dL Normal 4.5-5.3 [facility] Comment on above: Performed By: #### 4 5190 ####[facility] [address] [place] [address] Milton Hinojosa M.D. [id number] CBCon 07-16-2025 AUTO NRBC 0.0 % Normal [facility] Comment on above: Performed By: #### 4 [id number] ####[facility] [address] [place] [address] Milton Hinojosa M.D. [id number] AUTO NRBC ABS COUNT 0.00 K/mcL Normal 0.00-0.00 [facility] Comment on above: Performed By: #### 4 [id number] ####[facility] [address] [place] [address] Milton Hinojosa M.D. [id number] Erythrocyte distribution width (RBC) [Ratio] 15.5 % High 11.6-14.8 [facility] Comment on above: Performed By: #### 4 [id number] ####[facility] [address] [place] [address] Milton Hinojosa M.D. [id number] Hematocrit (Bld) [Volume fraction] 25.6 % Low 36.0-46.0 [facility] Comment on above: Performed By: #### 4 [id number] ####[facility] [address] [place] [address] Milton Hinjoosa M.D. [id number] Hemoglobin (Bld) [Mass/Vol] 8.4 g/dL Low 12.0-16.0 [facility] Comment on above: Performed By: #### 4 [id number] ####[facility] [address] [place] [address] Milton Hinojosa M.D. [id number] MCH (RBC) [Entitic mass] 28.7 pg Normal 26.0-34.0 [facility] Comment on above: Performed By: #### 4 [id number] ####[facility] [address] [place] [address] Milton Hinojosa M.D. [id number] MCV (RBC) [Entitic vol] 87.4 fL Normal 80.0-100.0 [facility] Comment on above: Performed By: #### 4 [id number] ####[facility] [address] [place] [address] Milton Hinojosa M.D. [id number] MEAN CORPUSCULAR HEMOGLOBIN CONC 32.8 g/dL Normal 31.0-37.0 [facility] Comment on above: Performed By: #### 4 [id number] ####[facility] [address] [place] [address] Milton Hinojosa M.D. [id number] Platelet mean volume (Bld) [Entitic vol] 9.5 fL Normal 9.4-12.4 [facility] Comment on above: Performed By: #### 4 [id number] ####[facility] [address] [place] [address] Milton Hinojosa M.D. [id number] Platelets (Bld) [#/Vol] 191 10*3/uL Normal 150-400 [facility] Comment on above: Performed By: #### 4 [id number] ####[facility] [address] [place] [address] Milton Hinojosa M.D. [id number] RBC (Bld) [#/Vol] 2.93 10*6/uL Low 4.00-5.20 [facility] Comment on above: Performed By: #### 4 [id number] ####[facility] [address] [place] [address] Milton Hinojosa M.D. [id number] WBC (Bld) [#/Vol] 4.46 10*3/uL Low 4.50-11.00 [facility] Comment on above: Performed By: #### 4 [id number] ####[facility] [address] [place] [address] Milton Hinojosa M.D. [id number] CBC panel Auto (Bld)on 07-16 Erythrocyte distribution width (RBC) [Entitic vol] 15.5 % High 11.6 - 14.8 % [facility] Hematocrit (Bld) [Volume fraction] 25.6 % Low 36.0 - 46.0 % [facility] Hemoglobin (Bld) [Mass/Vol] 8.4 g/dL Low 12.0 - 16.0 g/dL [facility] Interpretation and review of laboratory results Abnormal [facility] MCH (RBC) [Entitic mass] 28.7 pg 26.0 - 34.0 pg [facility] MCHC (RBC) [Mass/Vol] 32.8 g/dL 31.0 - 37.0 g/dL [facility] MCV (RBC) [Entitic vol] 87.4 fL 80.0 - 100.0 fL [facility] Nucleated RBC (Bld) [#/Vol] 0 10*3/uL [facility] Nucleated RBC/100 WBC (Bld) [Ratio] 0 % [facility] Platelet mean volume (Bld) [Entitic vol] 9.5 fL 9.4 - 12.4 fL [facility] Platelets (Bld) [#/Vol] 191 10*3/uL [facility] RBC (Bld) [#/Vol] 2.93 10*6/uL Low [facility] WBC (Bld) [#/Vol] 4.46 10*3/uL Low [facility] Calcium, Ionizedon Calcium.ionized [Mass/Vol] 4.7 mg/dL 4.5 - 5.3 mg/dL [facility] Calcium.ionized [Mass/Vol]on 07-16-2025 Interpretation and review of laboratory results Normal [facility] Glucose (Bld) [Mass/Vol]on 0 07-16-2025 Glucose [Mass/Vol] 102 mg/dL High 65 - 99 mg/dL [facility] Interpretation and review of laboratory results Abnormal [facility] Glucose [Mass/Vol] 73 mg/dL 65 - 99 mg/dL [facility] Interpretation and review of laboratory results Normal [facility] Glucose [Mass/Vol] 72 mg/dL 65 - 99 mg/dL [facility] Interpretation and review of laboratory results Normal [facility] MAGNESIUM LEVELon 07-16-2025 Magnesium [Mass/Vol] 1.9 mg/dL Normal 1.6-2.4 [facility] Comment on above: Performed By: #### 4 6109 ####[facility] [address] [place] [address] Milton Hinojosa M.D. [id number] Magnesiumon 07-16-2025 Magnesium [Mass/Vol] 1.9 mg/dL 1.6 - 2 .4 mg/dL [facility] Magnesium [Mass/Vol]on 07-16 Interpretation and review of laboratory results Normal [facility] No Panel Informationon 07-16 [facility] POC GLUCOSE - RALSon 025 Glucose [Mass/Vol] 102 mg/dL High 65-99 [place] Comment on above: Performed By: #### 4 [id number] ####[facility] [address] [place] [address] [id number] [facility] Glucose [Mass/Vol] 73 mg/dL Normal 65-99 [place] Comment on above: Performed By: #### 4 6932 ####[facility] [address] [place] [address] [id number] [facility] Glucose [Mass/Vol] 72 mg/dL Normal 65-99 [place] Comment on above: Performed By: #### 4 6932 ####[facility] [address] [place] [address] [id number] [facility] RENAL FUNCTION PANELon 07-16 Albumin [Mass/Vol] 2.6 g/dL Low 3.2-5.2 [place] Comment on above: Order Comment: [facility] has implemented the eGFR calculation approach that does not have a coefficient for race that conforms to the NKF-ASN Task Force Recommendations. Performed By: #### 4 6449 ####[facility] [address] [place] [address] Milton Hinojosa M.D. [id number] Anion gap [Moles/Vol] 15 mmol/L Normal 10-20 [facility] Comment on above: Order Comment: [facility] has implemented the eGFR calculation approach that does not have a coefficient for race that conforms to the NKF-ASN Task Force Recommendations. Performed By: #### 4 6449 ####[facility] [address] [place] [address] Milton Hinojosa M.D. [id number] Calcium [Mass/Vol] 8.7 mg/dL Normal 8.4-10.2 [place] Comment on above: Order Comment: [facility] has implemented the eGFR calculation approach that does not have a coefficient for race that conforms to the NKF-ASN Task Force Recommendations. Performed By: #### 4 6449 ####[facility] [address] [place], [place] [address] Milton Hinojosa M.D. [id number] Chloride [Moles/Vol] 98 mmol/L Normal 98-108 [facility] Comment on above: Order Comment: [facility] has implemented the eGFR calculation approach that does not have a coefficient for race that conforms to the NKF-ASN Task Force Recommendations. Performed By: #### 4 6449 ####[facility] [address] [place], [place] [address] Milton Hinojosa M.D. [id number] Creatinine [Mass/Vol] 4.53 mg/dL High 0.60-1.20 [facility] Comment on above: Order Comment: [facility] has implemented the eGFR calculation approach that does not have a coefficient for race that conforms to the NKF-ASN Task Force Recommendations. Performed By: #### 4 6449 ####[facility] [address] [place], [place] [address] Milton Hinojosa M.D. [id number] EGFR 10 mL/min/1.73 m2 Low >=60 [facility] Comment on above: Order Comment: [facility] has implemented the eGFR calculation approach that does not have a coefficient for race that conforms to the NKF-ASN Task Force Recommendations. Result Comment: Lalita mated GFR was calculated using the 2020 CKD-EPI creatinine equation. Performed By: #### 4 6449 ####[facility] [address] [place], [place] [address] Milton Hinojosa M.D. [id number] Glucose [Mass/Vol] 80 mg/dL Normal 65-99 [place] Comment on above: Order Comment: [facility] has implemented the eGFR calculation approach that does not have a coefficient for race that conforms to the NKF-ASN Task Force Recommendations. Performed By: #### 4 6449 ####[facility] [address] [place] [address] Milton Hinojosa M.D. [id number] HCO3 (Bld) [Moles/Vol] 26 mmol/L Normal 21-32 [facility] Comment on above: Order Comment: [facility] has implemented the eGFR calculation approach that does not have a coefficient for race that conforms to the NKF-ASN Task Force Recommendations. Performed By: #### 4 6449 ####[facility] [address] [place], [place] [address] Milton Hinojosa M.D. [id number] Phosphate [Mass/Vol] 3.9 mg/dL Normal 2.8-4.1 [facility] Comment on above: Order Comment: [facility] has implemented the eGFR calculation approach that does not have a coefficient for race that conforms to the NKF-ASN Task Force Recommendations. Performed By: #### 4 6449 ####[facility] [address] [place] [address] Milton Hinojosa M.D. [id number] Potassium [Moles/Vol] 4.3 mmol/L Normal 3.5-5.1 [facility] Comment on above: Order Comment: [facility] has implemented the eGFR calculation approach that does not have a coefficient for race that conforms to the NKF-ASN Task Force Recommendations. Result Comment: Slig htly Hemolyzed Performed By: #### 4 6449 ####[facility] [address] [place] [address] Milton Hinojosa M.D. [id number] Sodium [Moles/Vol] 135 mmol/L Normal 135-145 [place] Comment on above: Order Comment: [facility] has implemented the eGFR calculation approach that does not have a coefficient for race that conforms to the NKF-ASN Task Force Recommendations. Performed By: #### 4 6449 ####[facility] [address] [place] [address] Milton Hinojosa M.D. [id number] Urea nitrogen [Mass/Vol] 46 mg/dL High 8-25 [facility] Comment on above: Order Comment: [facility] has implemented the eGFR calculation approach that does not have a coefficient for race that conforms to the NKF-ASN Task Force Recommendations. Performed By: #### 4 6449 ####[facility] [address] [place], [place] [address] Milton Hinojosa M.D. [id number] Urea nitrogen/Creatinine [Mass ratio] 10.2 mg/mg Normal 10.0-20.0 [facility] Comment on above: Order Comment: [facility] has implemented the eGFR calculation approach that does not have a coefficient for race that conforms to the NKF-ASN Task Force Recommendations. Performed By: #### 4 6449 ####[facility] [address] [place] [address] Milton Hinojosa M.D. [id number] Renal function 2000 panelon 07-16-2025 Albumin [Mass/Vol] 2.6 g/dL Low 3.2 - 5.2 g/dL [facility] Anion gap [Moles/Vol] 15 mmol/L 10 - 2 0 mmol/L [facility] Calcium [Mass/Vol] 8.7 mg/dL 8.4 - 10. 2 mg/dL [facility] Chloride [Moles/Vol] 98 mmol/L 98 - 10 8 mmol/L [facility] Creatinine [Mass/Vol] 4.53 mg/dL High 0.60 - 1.20 mg/dL [facility] GFR/1.73 sq M.predicted CKD-EPI (S/P/Bld) [Vol rate/Area] 10 Low - PINF [facility] Glucose [Mass/Vol] 80 mg/dL 65 - 99 mg/dL [facility] HCO3 [Moles/Vol] 26 mmol/L 21 - 32 mmol/L [facility] Interpretation and review of laboratory results Abnormal [facility] Phosphate [Mass/Vol] 3.9 mg/dL 2.8 - 4 .1 mg/dL [facility] Potassium [Moles/Vol] 4.3 mmol/L 3.5 - 5.1 mmol/L [facility] Sodium [Moles/Vol] 135 mmol/L 135 - 145 mmol/L [facility] Urea nitrogen [Mass/Vol] 46 mg/dL High 8 - 25 mg/dL [facility] Urea nitrogen/Creatinine [Mass ratio] 10.2 mg/mg 10.0 - 20.0 [facility] VANCOMYCIN LEVEL, RANDOMon 0 07-16-2025 VANCOMYCIN RANDOM 18.6 mcg/mL Normal [place] Comment on above: Order Comment: As of 08/2022 vancomycin dosing for [facility] inpatients will be done by Bayesian dosing software rather than off traditional trough values. Please contact the site specific inpatient pharmacy before making dose changes off of trough values alone for admitted patients.No established reference range. Performed By: #### 4 6651 ####[facility] [address] [place] [address] Milton Hinojosa M.D. [id number] Vancomycin Level, Randomon 0 07-16-2025 Vancomycin [Mass/Vol] 18.6 mcg/mL [facility] Vancomycin [Mass/Vol]on [facility] APTT HEPARIN COVERAGEon 06-17 aPTT Coag (Bld) [Time] 95 s High 23-34 [facility] Comment on above: Order Comment: Thera peutic range for APTT's is 68 - 104 seconds Performed By: #### 4 [id number] ####[facility] [address] [place] [address]889 Milton Hinojosa M.D. [id number] APTT Heparin Coverageon 06-17 aPTT Coag (Bld) [Time] 95 s High [facility] Interpretation and review of laboratory results Abnormal [facility] CALCIUM, IONIZEDon CALCIUM IONIZED 4.8 mg/dL Normal 4.5-5.3 [facility] Comment on above: Performed By: #### 4 5190 ####[facility] [address] [place], [place] [address] Milton Hinojosa M.D. [id number] CBCon 07-15-2025 AUTO NRBC 0.0 % Normal [facility] [facility] Comment [facility] above: Performed By: #### 4 [id number] ####[facility] [address] [place] [address] Milton Hinojosa M.D. [id number] AUTO NRBC ABS COUNT 0.00 K/mcL Normal 0.00-0.00 [facility] Comment on above: Performed By: #### 4 [id number] ####[facility] [address] [place], [place] [address] Milton Hinojosa M.D. [id number] Erythrocyte distribution width (RBC) [Ratio] 15.6 % High 11.6-14.8 [facility] Comment on above: Performed By: #### 4 [id number] ####[facility] [address] [place], [place] [address] Milton Hinojosa M.D. [id number] Hematocrit (Bld) [Volume fraction] 26.8 % Low 36.0-46.0 [facility] Comment on above: Performed By: #### 4 [id number] ####[facility] [address] [place], [place] [address] Milton Hinojosa M.D. [id number] Hemoglobin (Bld) [Mass/Vol] 8.6 g/dL Low 12.0-16.0 [facility] Comment on above: Performed By: #### 4 [id number] ####[facility] [address] [place], [place] [address] Milton Hinojosa M.D. [id number] MCH (RBC) [Entitic mass] 28.3 pg Normal 26.0-34.0 [facility] Comment on above: Performed By: #### 4 [id number] ####[facility] [address] [place] [address] Milton Hinojosa M.D. [id number] MCV (RBC) [Entitic vol] 88.2 fL Normal 80.0-100.0 [facility] Comment on above: Performed By: #### 4 [id number] ####[facility] [address] [place] [address] Milton Hinojosa M.D. [id number] MEAN CORPUSCULAR HEMOGLOBIN CONC 32.1 g/dL Normal 31.0-37.0 [facility] Comment on above: Performed By: #### 4 [id number] ####[facility] [address] [place], [place] [address] Milton Hinojosa M.D. [id number] Platelet mean volume (Bld) [Entitic vol] 9.8 fL Normal 9.4-12.4 [facility] Comment on above: Performed By: #### 4 [id number] ####[facility] [address] [place], [place] [address] Milton Hinojosa M.D. [id number] Platelets (Bld) [#/Vol] 167 10*3/uL Normal 150-400 [facility] Comment on above: Performed By: #### 4 [id number] ####[facility] [address] [place], [place] [address] Milton Hinojosa M.D. [id number] RBC (Bld) [#/Vol] 3.04 10*6/uL Low 4.00-5.20 [facility] Comment on above: Performed By: #### 4 [id number] ####[facility] [address] [place], [place] [address] Milton Hinojosa M.D. [id number] WBC (Bld) [#/Vol] 4.96 10*3/uL Normal 4.50-11.00 [facility] Comment on above: Performed By: #### 4 [id number] ####[facility] [address] [place] [address] Milton Hinojosa M.D. [id number] CBC panel Auto (Bld)on 07-15 Erythrocyte distribution width (RBC) [Entitic vol] 15.6 % High 11.6 - 14.8 % [facility] Hematocrit (Bld) [Volume fraction] 26.8 % Low 36.0 - 46.0 % [facility] Hemoglobin (Bld) [Mass/Vol] 8.6 g/dL Low 12.0 - 16.0 g/dL [facility] Interpretation and review of laboratory results Abnormal [facility] MCH (RBC) [Entitic mass] 28.3 pg 26.0 - 34.0 pg [facility] MCHC (RBC) [Mass/Vol] 32.1 g/dL 31.0 - 37.0 g/dL [facility] MCV (RBC) [Entitic vol] 88.2 fL 80.0 - 100.0 fL [facility] Nucleated RBC (Bld) [#/Vol] 0 10*3/uL [facility] Nucleated RBC/100 WBC (Bld) [Ratio] 0 % [facility] Platelet mean volume (Bld) [Entitic vol] 9.8 fL 9.4 - 12.4 fL [facility] Platelets (Bld) [#/Vol] 167 10*3/uL [facility] RBC (Bld) [#/Vol] 3.04 10*6/uL Low [facility] WBC (Bld) [#/Vol] 4.96 10*3/uL [facility] Calcium, Ionizedon Calcium.ionized [Mass/Vol] 4.8 mg/dL 4.5 - 5.3 mg/dL [facility] Calcium.ionized [Mass/Vol]on 07-15-2025 Interpretation and review of laboratory results Normal [facility] Glucose (Bld) [Mass/Vol]on 0 07-15-2025 Glucose [Mass/Vol] 119 mg/dL High 65 - 99 mg/dL [facility] Interpretation and review of laboratory results Abnormal [facility] Glucose [Mass/Vol] 110 mg/dL High 65 - 99 mg/dL [facility] Interpretation and review of laboratory results Abnormal [facility] Glucose [Mass/Vol] 99 mg/dL 65 - 99 mg/dL [facility] Interpretation and review of laboratory results Normal [facility] Glucose [Mass/Vol] 89 mg/dL 65 - 99 mg/dL [facility] Interpretation and review of laboratory results Normal [facility] MAGNESIUM LEVELon 07-15-2025 Magnesium [Mass/Vol] 2.0 mg/dL Normal 1.6-2.4 [facility] Comment on above: Performed By: #### 4 6109 ####[facility] [address] [place] [address] Milton Hinojosa M.D. [id number] Magnesiumon 07-15-2025 Magnesium [Mass/Vol] 2 mg/dL 1.6 - 2 .4 mg/dL [facility] Magnesium [Mass/Vol]on 07-15 Interpretation and review of laboratory results Normal [facility] No Panel Informationon 07-15 [facility] Glucose [Mass/Vol] 119 mg/dL High 65-99 [place] Comment on above: Performed By: #### 4 6932 ####[facility] [address] [place] [address] [id number] [facility] Glucose [Mass/Vol] 110 mg/dL High 65-99 [place] Comment on above: Performed By: #### 4 6904 ####[facility] [address] [place] [address] [id number] [facility] Glucose [Mass/Vol] 99 mg/dL Normal 65-99 [place] Comment on above: Performed By: #### 4 6901 ####[facility] [address] [place] [address] [id number] [facility] Glucose [Mass/Vol] 89 mg/dL Normal 65-99 [place] Comment on above: Performed By: #### 4 6983 ####[facility] [address] [place] [address] [id number] [facility] RENAL FUNCTION PANELon 07-15 Albumin [Mass/Vol] 2.8 g/dL Low 3.2-5.2 [place] Comment on above: Order Comment: [facility] has implemented the eGFR calculation approach that does not have a coefficient for race that conforms to the NKF-ASN Task Force Recommendations. Performed By: #### 4 6449 ####[facility] [address] [place] [address] Milton Hinojosa M.D. [id number] Anion gap [Moles/Vol] 14 mmol/L Normal 10-20 [facility] Comment on above: Order Comment: [facility] has implemented the eGFR calculation approach that does not have a coefficient for race that conforms to the NKF-ASN Task Force Recommendations. Performed By: #### 4 6449 ####[facility] [address] [place], [place] [address] Milton Hinojosa M.D. [id number] Calcium [Mass/Vol] 8.7 mg/dL Normal 8.4-10.2 [place] Comment on above: Order Comment: [facility] has implemented the eGFR calculation approach that does not have a coefficient for race that conforms to the NKF-ASN Task Force Recommendations. Performed By: #### 4 6449 ####[facility] [address] [place], [place] [address] Milton Hinojosa M.D. [id number] Chloride [Moles/Vol] 98 mmol/L Normal 98-108 [facility] Comment on above: Order Comment: [facility] has implemented the eGFR calculation approach that does not have a coefficient for race that conforms to the NKF-ASN Task Force Recommendations. Performed By: #### 4 6449 ####[facility] [address] [place], [place] [address] Milton Hinojosa M.D. [id number] Creatinine [Mass/Vol] 3.77 mg/dL High 0.60-1.20 [facility] Comment on above: Order Comment: [facility] has implemented the eGFR calculation approach that does not have a coefficient for race that conforms to the NKF-ASN Task Force Recommendations. Performed By: #### 4 6449 ####[facility] [address] [place], [place] [address] Milton Hinojosa M.D. [id number] EGFR 12 mL/min/1.73 m2 Low >=60 [facility] Comment on above: Order Comment: [facility] has implemented the eGFR calculation approach that does not have a coefficient for race that conforms to the NKF-ASN Task Force Recommendations. Result Comment: Lalita mated GFR was calculated using the 2020 CKD-EPI creatinine equation. Performed By: #### 4 6449 ####[facility] [address] [place], [place] [address] Milton Hinojosa M.D. [id number] Glucose [Mass/Vol] 78 mg/dL Normal 65-99 [place] Comment on above: Order Comment: [facility] has implemented the eGFR calculation approach that does not have a coefficient for race that conforms to the NKF-ASN Task Force Recommendations. Performed By: #### 4 6449 ####[facility] [address] [place], [place] [address] Milton Hinojosa M.D. [id number] HCO3 (Bld) [Moles/Vol] 28 mmol/L Normal 21-32 [facility] Comment on above: Order Comment: [facility] has implemented the eGFR calculation approach that does not have a coefficient for race that conforms to the NKF-ASN Task Force Recommendations. Performed By: #### 4 [id number] ####[facility] [address] [place], [place] [address] Milton Hinojosa M.D. [id number] Phosphate [Mass/Vol] 3.5 mg/dL Normal 2.8-4.1 [facility] Comment on above: Order Comment: [facility] has implemented the eGFR calculation approach that does not have a coefficient for race that conforms to the NKF-ASN Task Force Recommendations. Performed By: #### 4 6449 ####[facility] [address] [place] [address] Milton Hinojosa M.D. [id number] Potassium [Moles/Vol] 3.8 mmol/L Normal 3.5-5.1 [facility] Comment on above: Order Comment: [facility] has implemented the eGFR calculation approach that does not have a coefficient for race that conforms to the NKF-ASN Task Force Recommendations. Performed By: #### 4 6449 ####[facility] [address] [place] [address] Milton Hinojosa M.D. [id number] Sodium [Moles/Vol] 136 mmol/L Normal 135-145 [place] Comment on above: Order Comment: [facility] has implemented the eGFR calculation approach that does not have a coefficient for race that conforms to the NKF-ASN Task Force Recommendations. Performed By: #### 4 6449 ####[facility] [address] [place] [address] Milton Hinojosa M.D. [id number] Urea nitrogen [Mass/Vol] 35 mg/dL High 8-25 [facility] Comment on above: Order Comment: [facility] has implemented the eGFR calculation approach that does not have a coefficient for race that conforms to the NKF-ASN Task Force Recommendations. Performed By: #### 4 6449 ####[facility] [address] [place] [address] Milton Hinojosa M.D. [id number] Urea nitrogen/Creatinine [Mass ratio] 9.3 mg/mg Low 10.0-20.0 [facility] Comment on above: Order Comment: [facility] has implemented the eGFR calculation approach that does not have a coefficient for race that conforms to the NKF-ASN Task Force Recommendations. Performed By: #### 4 6449 ####[facility] [address] [place] [address] Milton Hinojosa M.D. [id number] Renal function 2000 panelon 07-15-2025 Albumin [Mass/Vol] 2.8 g/dL Low 3.2 - 5.2 g/dL [facility] Anion gap [Moles/Vol] 14 mmol/L 10 - 2 0 mmol/L [facility] Calcium [Mass/Vol] 8.7 mg/dL 8.4 - 10. 2 mg/dL [facility] Chloride [Moles/Vol] 98 mmol/L 98 - 10 8 mmol/L [facility] Creatinine [Mass/Vol] 3.77 mg/dL High 0.60 - 1.20 mg/dL [facility] GFR/1.73 sq M.predicted CKD-EPI (S/P/Bld) [Vol rate/Area] 12 Low - PINF [facility] Glucose [Mass/Vol] 78 mg/dL 65 - 99 mg/dL [facility] HCO3 [Moles/Vol] 28 mmol/L 21 - 32 mmol/L [facility] Interpretation and review of laboratory results Abnormal [facility] Phosphate [Mass/Vol] 3.5 mg/dL 2.8 - 4 .1 mg/dL [facility] Potassium [Moles/Vol] 3.8 mmol/L 3.5 - 5.1 mmol/L [facility] Sodium [Moles/Vol] 136 mmol/L 135 - 145 mmol/L [facility] Urea nitrogen [Mass/Vol] 35 mg/dL High 8 - 25 mg/dL [facility] Urea nitrogen/Creatinine [Mass ratio] 9.3 mg/mg Low 10.0 - 20.0 [facility] APTT HEPARIN COVERAGEon 06-17 aPTT Coag (Bld) [Time] 80 s High 23-34 [facility] Comment on above: Order Comment: Thera peutic range for APTT's is 68 - 104 seconds Performed By: #### 4 [id number] ####[facility] [address] [place] [address] Milton Hinojosa M.D. [id number] APTT Heparin Coverageon 06-17 aPTT Coag (Bld) [Time] 80 s High [facility] Interpretation and review of laboratory results Abnormal [facility] CALCIUM, IONIZEDon CALCIUM IONIZED 4.8 mg/dL Normal 4.5-5.3 [facility] Comment on above: Performed By: #### 4 5190 ####[facility] [address] [place] [address] Milton Hinojosa M.D. [id number] CBCon 07-14-2025 AUTO NRBC 0.0 % Normal [facility] Comment on above: Performed By: #### 4 [id number] ####[facility] [address] [place], [place] [address] Milton Hinojosa M.D. [id number] AUTO NRBC ABS COUNT 0.00 K/mcL Normal 0.00-0.00 [facility] Comment on above: Performed By: #### 4 [id number] ####[facility] [address] [place], [place] [address] Milton Hinojosa M.D. [id number] Erythrocyte distribution width (RBC) [Ratio] 15.8 % High 11.6-14.8 [facility] Comment on above: Performed By: #### 4 [id number] ####[facility] [address] [place], [place] [address] Milton Hinojosa M.D. [id number] Hematocrit (Bld) [Volume fraction] 26.9 % Low 36.0-46.0 [facility] Comment on above: Performed By: #### 4 [id number] ####[facility] [address] [place], [place] [address] Milton Hinojosa M.D. [id number] Hemoglobin (Bld) [Mass/Vol] 8.4 g/dL Low 12.0-16.0 [facility] Comment on above: Performed By: #### 4 [id number] ####[facility] [address] [place], [place] [address] Milton Hinojosa M.D. [id number] MCH (RBC) [Entitic mass] 28.5 pg Normal 26.0-34.0 [facility] Comment on above: Performed By: #### 4 [id number] ####[facility] [address] [place] [address] Milton Hinojosa M.D. [id number] MCV (RBC) [Entitic vol] 91.2 fL Normal 80.0-100.0 [facility] Comment on above: Performed By: #### 4 [id number] ####[facility] [address] [place] [address] Milton Hinojosa M.D. [id number] MEAN CORPUSCULAR HEMOGLOBIN CONC 31.2 g/dL Normal 31.0-37.0 [facility] Comment on above: Performed By: #### 4 [id number] ####[facility] [address] [place] [address] Milton Hinojosa M.D. [id number] Platelet mean volume (Bld) [Entitic vol] 10.0 fL Normal 9.4-12.4 [facility] Comment on above: Performed By: #### 4 [id number] ####[facility] [address] [place], [place] [address] Milton Hinojosa M.D. [id number] Platelets (Bld) [#/Vol] 148 10*3/uL Low 150-400 [facility] Comment on above: Performed By: #### 4 [id number] ####[facility] [address] [place], [place] [address] Milton Hinojosa M.D. [id number] RBC (Bld) [#/Vol] 2.95 10*6/uL Low 4.00-5.20 [facility] Comment on above: Performed By: #### 4 [id number] ####[facility] [address] [place], [place] [address] Milton Hinojosa M.D. [id number] WBC (Bld) [#/Vol] 5.10 10*3/uL Normal 4.50-11.00 [facility] Comment on above: Performed By: #### 4 [id number] ####[facility] [address] [address] Milton Hinojosa M.D. [id number] CBC panel Auto (Bld)on 07-14 Erythrocyte distribution width (RBC) [Entitic vol] 15.8 % High 11.6 - 14.8 % [facility] Hematocrit (Bld) [Volume fraction] 26.9 % Low 36.0 - 46.0 % [facility] Hemoglobin (Bld) [Mass/Vol] 8.4 g/dL Low 12.0 - 16.0 g/dL [facility] Interpretation and review of laboratory results Abnormal [facility] MCH (RBC) [Entitic mass] 28.5 pg 26.0 - 34.0 pg [facility] MCHC (RBC) [Mass/Vol] 31.2 g/dL 31.0 - 37.0 g/dL [facility] MCV (RBC) [Entitic vol] 91.2 fL 80.0 - 100.0 fL [facility] Nucleated RBC (Bld) [#/Vol] 0 10*3/uL [facility] Nucleated RBC/100 WBC (Bld) [Ratio] 0 % [facility] Platelet mean volume (Bld) [Entitic vol] 10 fL 9.4 - 12.4 fL [facility] Platelets (Bld) [#/Vol] 148 10*3/uL Low [facility] RBC (Bld) [#/Vol] 2.95 10*6/uL Low [facility] WBC (Bld) [#/Vol] 5.1 10*3/uL [facility] Calcium, Ionizedon Calcium.ionized [Mass/Vol] 4.8 mg/dL 4.5 - 5.3 mg/dL [facility] Calcium.ionized [Mass/Vol]on 07-14-2025 Interpretation and review of laboratory results Normal [facility] Glucose (Bld) [Mass/Vol]on 0 07-14-2025 Glucose [Mass/Vol] 94 mg/dL 65 - 99 mg/dL [facility] Interpretation and review of laboratory results Normal [facility] Glucose [Mass/Vol] 115 mg/dL High 65 - 99 mg/dL [facility] Interpretation and review of laboratory results Abnormal [facility] Glucose [Mass/Vol] 83 mg/dL 65 - 99 mg/dL [facility] Interpretation and review of laboratory results Normal [facility] Glucose [Mass/Vol] 81 mg/dL 65 - 99 mg/dL [facility] Interpretation and review of laboratory results Normal [facility] MAGNESIUM LEVELon 07-14-2025 Magnesium [Mass/Vol] 1.7 mg/dL Normal 1.6-2.4 [facility] Comment on above: Performed By: #### 4 6109 ####[facility] [address] [place] [address] Milton Hinojosa M.D. [id number] Magnesiumon 07-14-2025 Magnesium [Mass/Vol] 1.7 mg/dL 1.6 - 2 .4 mg/dL [facility] Magnesium [Mass/Vol]on 07-14 Interpretation and review of laboratory results Normal [facility] POC GLUCOSE - [facility] 025 Glucose [Mass/Vol] 94 mg/dL Normal 65-99 [place] Comment on above: Performed By: #### 4 6962 ####[facility] [address] [place] [address] [id number] [facility] Glucose [Mass/Vol] 115 mg/dL High 65-99 [place] Comment on above: Performed By: #### 4 9340 ####[facility] [address] [place] [address] [id number] [facility] Glucose [Mass/Vol] 83 mg/dL Normal 65-99 [place] Comment on above: Performed By: #### 4 6860 ####[facility] [address] [place] [address] [id number] [facility] Glucose [Mass/Vol] 81 mg/dL Normal 65-99 [place] Comment on above: Performed By: #### 4 6905 ####[facility] [address] [place] [address] [id number] [facility] RENAL FUNCTION PANELon 07-14 Albumin [Mass/Vol] 2.6 g/dL Low 3.2-5.2 [place] Comment on above: Order Comment: [facility] has implemented the eGFR calculation approach that does not have a coefficient for race that conforms to the NKF-ASN Task Force Recommendations. Performed By: #### 4 6449 ####[facility] [address] [place], [place] [address] Milton Hinojosa M.D. [id number] Anion gap [Moles/Vol] 14 mmol/L Normal 10-20 [facility] Comment on above: Order Comment: [facility] has implemented the eGFR calculation approach that does not have a coefficient for race that conforms to the NKF-ASN Task Force Recommendations. Performed By: #### 4 6449 ####[facility] [address] [place] [address] Milton Hinojosa M.D. [id number] Calcium [Mass/Vol] 8.6 mg/dL Normal 8.4-10.2 [place] Comment on above: Order Comment: [facility] has implemented the eGFR calculation approach that does not have a coefficient for race that conforms to the NKF-ASN Task Force Recommendations. Performed By: #### 4 [id number] ####[facility] [address] [place], [place] [address] Milton Hinojosa M.D. [id number] Chloride [Moles/Vol] 99 mmol/L Normal 98-108 [facility] Comment on above: Order Comment: [facility] has implemented the eGFR calculation approach that does not have a coefficient for race that conforms to the NKF-ASN Task Force Recommendations. Performed By: #### 4 [id number] ####[facility] [address] [place], [place] [address] Milton Hinojosa M.D. [id number] Creatinine [Mass/Vol] 2.84 mg/dL High 0.60-1.20 [facility] Comment on above: Order Comment: [facility] has implemented the eGFR calculation approach that does not have a coefficient for race that conforms to the NKF-ASN Task Force Recommendations. Performed By: #### 4 6449 ####[facility] [address] [place], [place] [address] Milton Hinojosa M.D. [id number] EGFR 17 mL/min/1.73 m2 Low >=60 [facility] Comment on above: Order Comment: [facility] has implemented the eGFR calculation approach that does not have a coefficient for race that conforms to the NKF-ASN Task Force Recommendations. Result Comment: Lalita [facility] GFR was calculated using the 2020 CKD-EPI creatinine equation. Performed By: #### 4 [id number] ####[facility] [address] [place], [place] [address] Milton Hinojosa M.D. [id number] Glucose [Mass/Vol] 85 mg/dL Normal 65-99 [place] Comment on above: Order Comment: [facility] has implemented the eGFR calculation approach that does not have a coefficient for race that conforms to the NKF-ASN Task Force Recommendations. Performed By: #### 4 [id number] ####[facility] [address] [place], [place] [address] Milton Hinojosa M.D. [id number] HCO3 (Bld) [Moles/Vol] 28 mmol/L Normal 21-32 [facility] Comment on above: Order Comment: [facility] has implemented the eGFR calculation approach that does not have a coefficient for race that conforms to the NKF-ASN Task Force Recommendations. Performed By: #### 4 [id number] ####[facility] [address] [address] [place], [place] [id number] Milton iHnojosa M.D. [id number] Phosphate [Mass/Vol] 2.8 mg/dL Normal 2.8-4.1 [facility] Comment on above: Order Comment: [facility] has implemented the eGFR calculation approach that does not have a coefficient for race that conforms to the NKF-ASN Task Force Recommendations. Performed By: #### 4 6449 ####[facility] [address] [place] [address] 59882 Milton Hinojosa M.D. [id number] Potassium [Moles/Vol] 3.7 mmol/L Normal 3.5-5.1 [facility] Comment on above: Order Comment: [facility] has implemented the eGFR calculation approach that does not have a coefficient for race that conforms to the NKF-ASN Task Force Recommendations. Performed By: #### 4 6449 ####[facility] [address] [place] [address] 71018 Milton Hinojosa M.D. [id number] Sodium [Moles/Vol] 137 mmol/L Normal 135-145 [place] Comment on above: Order Comment: [facility] has implemented the eGFR calculation approach that does not have a coefficient for race that conforms to the NKF-ASN Task Force Recommendations. Performed By: #### 4 6449 ####[facility] [address] [place] [address] 65868 Milton Hinojosa M.D. [id number] Urea nitrogen [Mass/Vol] 25 mg/dL Normal 8-25 [facility] Comment on above: Order Comment: [facility] has implemented the eGFR calculation approach that does not have a coefficient for race that conforms to the NKF-ASN Task Force Recommendations. Performed By: #### 4 6449 ####[facility] [address] [place] [address] 42598 Milton Hinojosa M.D. [id number] Urea nitrogen/Creatinine [Mass ratio] 8.8 mg/mg Low 10.0-20.0 [facility] Comment on above: Order Comment: [facility] has implemented the eGFR calculation approach that does not have a coefficient for race that conforms to the NKF-ASN Task Force Recommendations. Performed By: #### 4 6449 ####[facility] [address] [place] [address] 01316 Milton Hinojosa M.D. [id number] Renal function 2000 panelon 07-14-2025 Albumin [Mass/Vol] 2.6 g/dL Low 3.2 - 5.2 g/dL [facility] Anion gap [Moles/Vol] 14 mmol/L 10 - 2 0 mmol/L [facility] Calcium [Mass/Vol] 8.6 mg/dL 8.4 - 10. 2 mg/dL [facility] Chloride [Moles/Vol] 99 mmol/L 98 - 10 8 mmol/L [facility] Creatinine [Mass/Vol] 2.84 mg/dL High 0.60 - 1.20 mg/dL [facility] GFR/1.73 sq M.predicted CKD-EPI (S/P/Bld) [Vol rate/Area] 17 Low - PINF [facility] Glucose [Mass/Vol] 85 mg/dL 65 - 99 mg/dL [facility] HCO3 [Moles/Vol] 28 mmol/L 21 - 32 mmol/L [facility] Interpretation and review of laboratory results Abnormal [facility] Phosphate [Mass/Vol] 2.8 mg/dL 2.8 - 4 .1 mg/dL [facility] Potassium [Moles/Vol] 3.7 mmol/L 3.5 - 5.1 mmol/L [facility] Sodium [Moles/Vol] 137 mmol/L 135 - 145 mmol/L [facility] Urea nitrogen [Mass/Vol] 25 mg/dL 8 - 25 mg/dL [facility] Urea nitrogen/Creatinine [Mass ratio] 8.8 mg/mg Low 10.0 - 20.0 [facility] APTT HEPARIN COVERAGEon 06-16 aPTT Coag (Bld) [Time] 76 s High 23-34 [facility] Comment on above: Order Comment: Thera peutic range for APTT's is 68 - 104 seconds Result Comment: Resu lts checked. Performed By: #### 4 [id number] ####[facility] [address] [place] [address] 51278 Milton Hinojosa M.D. [id number] aPTT Coag (Bld) [Time] [address] Comment on above: Order Comment: Thera peutic range for APTT's is 68 - 104 secondsResults checked. Performed By: #### 4 [id number] ####[facility] [address] [place], [place] [address] Milton Hinojosa M.D. [id number] aPTT Coag (Bld) [Time] [address] Comment on above: Order Comment: Thera peutic range for APTT's is 68 - 104 seconds Performed By: #### 4 [id number] ####[facility] [address] [place], [place] [address] Milton Hinojosa M.D. [id number] APTT Heparin Coverageon 06-16 aPTT Coag (Bld) [Time] 76 s [facility] Interpretation and review of laboratory results Abnormal [facility] aPTT Coag (Bld) [Time] 87 s [facility] Interpretation and review of laboratory results Abnormal [facility] aPTT Coag (Bld) [Time] 108 s [facility] Interpretation and review of laboratory results Abnormal [facility] CALCIUM, IONIZEDon CALCIUM IONIZED 4.7 mg/dL Normal 4.5-5.3 [facility] Comment on above: Performed By: #### 4 5190 ####[facility] [address] [place] [address] 52799 Milton Hinojosa M.D. [id number] CBCon 07-13-2025 AUTO NRBC 0.0 % Normal [facility] Comment on above: Performed By: #### 4 [id number] ####[facility] [address] [place] [address] 74671 Milton Hinojosa M.D. [id number] AUTO NRBC ABS COUNT 0.00 K/mcL Normal 0.00-0.00 [facility] Comment on above: Performed By: #### 4 [id number] ####[facility] [address] [place] [address] 05283 Milton Hinojosa M.D. [id number] Erythrocyte distribution width (RBC) [Ratio] 16.1 % High 11.6-14.8 [facility] Comment on above: Performed By: #### 4 [id number] ####[facility] [address] [place], [place] [address] Milton Hinojosa M.D. [id number] Hematocrit (Bld) [Volume fraction] 26.6 % Low 36.0-46.0 [facility] Comment on above: Performed By: #### 4 [id number] ####[facility] [address] [place], [place] [address] Milton Hinojosa M.D. [id number] Hemoglobin (Bld) [Mass/Vol] 8.5 g/dL Low 12.0-16.0 [facility] Comment on above: Performed By: #### 4 [id number] ####[facility] [address] [place], [place] [address] Milton Hinojosa M.D. [id number] MCH (RBC) [Entitic mass] 28.5 pg Normal 26.0-34.0 [facility] Comment on above: Performed By: #### 4 [id number] ####[facility] [address] [place], [place] [address] Milton Hinojosa M.D. [id number] MCV (RBC) [Entitic vol] 89.3 fL Normal 80.0-100.0 [facility] Comment on above: Performed By: #### 4 0718 ####[facility] [address] [place], [place] [address] Milton Hinojosa M.D. [id number] MEAN CORPUSCULAR HEMOGLOBIN CONC 32.0 g/dL Normal 31.0-37.0 [facility] Comment on above: Performed By: #### 4 1318 ####[facility] [address] [place] [address] 29174 Milton Hinojosa M.D. [id number] Platelet mean volume (Bld) [Entitic vol] 9.6 fL Normal 9.4-12.4 [facility] Comment on above: Performed By: #### 4 [id number] ####[facility] [address] [place] [address] 91988 Milton Hinojosa M.D. [id number] Platelets (Bld) [#/Vol] 148 10*3/uL Low 150-400 [facility] Comment on above: Performed By: #### 4 [id number] ####[facility] [address] [place] [address] 71162 Milton Hinojosa M.D. [id number] RBC (Bld) [#/Vol] 2.98 10*6/uL Low 4.00-5.20 [facility] Comment on above: Performed By: #### 4 [id number] ####[facility] [address] [place] [address] 62553 Milton Hinojosa M.D. [id number] WBC (Bld) [#/Vol] 5.61 10*3/uL Normal 4.50-11.00 [facility] Comment on above: Performed By: #### 4 [id number] ####[facility] [address] [place] [address] 56135 Milton iHnojosa M.D. [id number] CBC panel Auto (Bld)on 07-13 Erythrocyte distribution width (RBC) [Entitic vol] 16.1 % High 11.6 - 14.8 % [facility] Hematocrit (Bld) [Volume fraction] 26.6 % Low 36.0 - 46.0 % [facility] Hemoglobin (Bld) [Mass/Vol] 8.5 g/dL Low 12.0 - 16.0 g/dL [facility] Interpretation and review of laboratory results Abnormal [facility] MCH (RBC) [Entitic mass] 28.5 pg 26.0 - 34.0 pg [facility] MCHC (RBC) [Mass/Vol] 32 g/dL 31.0 - 37.0 g/dL [facility] MCV (RBC) [Entitic vol] 89.3 fL 80.0 - 100.0 fL [facility] Nucleated RBC (Bld) [#/Vol] 0 10*3/uL [facility] Nucleated RBC/100 WBC (Bld) [Ratio] 0 % [facility] Platelet mean volume (Bld) [Entitic vol] 9.6 fL 9.4 - 12.4 fL [facility] Platelets (Bld) [#/Vol] 148 10*3/uL Low [facility] RBC (Bld) [#/Vol] 2.98 10*6/uL Low [facility] WBC (Bld) [#/Vol] 5.61 10*3/uL [facility] Calcium, Ionizedon Calcium.ionized [Mass/Vol] 4.7 mg/dL 4.5 - 5.3 mg/dL [facility] Calcium.ionized [Mass/Vol]on 07-13-2025 Interpretation and review of laboratory results Normal [facility] Glucose (Bld) [Mass/Vol]on 0 07-13-2025 Glucose [Mass/Vol] 118 mg/dL High 65 - 99 mg/dL [facility] Interpretation and review of laboratory results Abnormal [facility] Glucose [Mass/Vol] 131 mg/dL High 65 - 99 mg/dL [facility] Interpretation and review of laboratory results Abnormal [facility] Glucose [Mass/Vol] 118 mg/dL High 65 - 99 mg/dL [facility] Interpretation and review of laboratory results Abnormal [facility] MAGNESIUM LEVELon 07-13-2025 Magnesium [Mass/Vol] 1.8 mg/dL Normal 1.6-2.4 [facility] Comment on above: Performed By: #### 4 6109 ####[facility] [address] [place] [address] Milton Hinojosa M.D. [id number] Magnesiumon 07-13-2025 Magnesium [Mass/Vol] 1.8 mg/dL 1.6 - 2 .4 mg/dL [facility] Magnesium [Mass/Vol]on 07-13 Interpretation and review of laboratory results Normal [facility] No Panel Informationon 07-13 [facility] POC GLUCOSE - [facility] 025 Glucose [Mass/Vol] 118 mg/dL High 65- [place] Comment on above: Performed By: #### 4 6932 ####[facility] [address] [place] [address] [id number] [facility] Glucose [Mass/Vol] 131 mg/dL High 65- [place] Comment on above: Performed By: #### 4 6932 ####[facility] [address] [place] [address] [id number] [facility] Glucose [Mass/Vol] 118 mg/dL High - [place] Comment on above: Performed By: #### 4 6932 ####[facility] [address] [place] [address] [id number] [facility] RENAL FUNCTION PANELon 07-13 Albumin [Mass/Vol] 2.7 g/dL Low 3.2-5.2 [place] Comment on above: Order Comment: [facility] has implemented the eGFR calculation approach that does not have a coefficient for race that conforms to the NKF-ASN Task Force Recommendations. Performed By: #### 4 6449 ####[facility] [address] [place] [address] Milton Hinojosa M.D. [id number] Anion gap [Moles/Vol] 16 mmol/L Normal 10-20 [facility] Comment on above: Order Comment: [facility] has implemented the eGFR calculation approach that does not have a coefficient for race that conforms to the NKF-ASN Task Force Recommendations. Performed By: #### 4 6449 ####[facility] [address] [place], [place] [address] Milton Hinojosa M.D. [id number] Calcium [Mass/Vol] 8.7 mg/dL Normal 8.4-10.2 [place] Comment on above: Order Comment: [facility] has implemented the eGFR calculation approach that does not have a coefficient for race that conforms to the NKF-ASN Task Force Recommendations. Performed By: #### 4 6449 ####[facility] [address] [place] [address] 83960 Milton Hinojosa M.D. [id number] Chloride [Moles/Vol] 102 mmol/L Normal 98-108 [facility] Comment on above: Order Comment: [facility] has implemented the eGFR calculation approach that does not have a coefficient for race that conforms to the NKF-ASN Task Force Recommendations. Performed By: #### 4 6449 ####[facility] [address] [place] [address] 63097 Milton Hinojosa M.D. [id number] Creatinine [Mass/Vol] 4.29 mg/dL High 0.60-1.20 [facility] Comment on above: Order Comment: [facility] has implemented the eGFR calculation approach that does not have a coefficient for race that conforms to the NKF-ASN Task Force Recommendations. Performed By: #### 4 6449 ####[facility] [address] [place] [address] 66861 Milton Hinojosa M.D. [id number] EGFR 10 mL/min/1.73 m2 Low >=60 [facility] Comment on above: Order Comment: [facility] has implemented the eGFR calculation approach that does not have a coefficient for race that conforms to the NKF-ASN Task Force Recommendations. Result Comment: Lalita mated GFR was calculated using the 2020 CKD-EPI creatinine equation. Performed By: #### 4 6449 ####[facility] [address] [place] [address] 04662 Milton Hinojosa M.D. [id number] Glucose [Mass/Vol] 80 mg/dL Normal 65-99 [place] Comment on above: Order Comment: [facility] has implemented the eGFR calculation approach that does not have a coefficient for race that conforms to the NKF-ASN Task Force Recommendations. Performed By: #### 4 6449 ####[facility] [address] [place] [address] 65987 Milton Hinojosa M.D. [id number] HCO3 (Bld) [Moles/Vol] 26 mmol/L Normal 21-32 [facility] Comment on above: Order Comment: [facility] has implemented the eGFR calculation approach that does not have a coefficient for race that conforms to the NKF-ASN Task Force Recommendations. Performed By: #### 4 6449 ####[facility] [address] [place] [address] 01336 Milton Hinojosa M.D. [id number] Phosphate [Mass/Vol] 4.0 mg/dL Normal 2.8-4.1 [facility] Comment on above: Order Comment: [facility] has implemented the eGFR calculation approach that does not have a coefficient for race that conforms to the NKF-ASN Task Force Recommendations. Performed By: #### 4 6449 ####[facility] [address] [place] [address] 93886 Milton Hinojosa M.D. [id number] Potassium [Moles/Vol] 3.9 mmol/L Normal 3.5-5.1 [facility] Comment on above: Order Comment: [facility] has implemented the eGFR calculation approach that does not have a coefficient for race that conforms to the NKF-ASN Task Force Recommendations. Performed By: #### 4 6449 ####[facility] [address] [place] [address] 62469 Milton Hinojosa M.D. [id number] Sodium [Moles/Vol] 140 mmol/L Normal 135-145 [place] Comment on above: Order Comment: [facility] has implemented the eGFR calculation approach that does not have a coefficient for race that conforms to the NKF-ASN Task Force Recommendations. Performed By: #### 4 6449 ####[facility] [address] [place], [place] [address] Milton Hinojosa M.D. [id number] Urea nitrogen [Mass/Vol] 41 mg/dL High 8-25 [facility] Comment on above: Order Comment: [facility] has implemented the eGFR calculation approach that does not have a coefficient for race that conforms to the NKF-ASN Task Force Recommendations. Performed By: #### 4 6449 ####[facility] [address] [place] [address] 08515 Milton Hinojosa M.D. [id number] Urea nitrogen/Creatinine [Mass ratio] 9.6 mg/mg Low 10.0-20.0 [facility] Comment on above: Order Comment: [facility] has implemented the eGFR calculation approach that does not have a coefficient for race that conforms to the NKF-ASN Task Force Recommendations. Performed By: #### 4 6449 ####[facility] [address] [place] [address] 45489 Milton Hinojosa M.D. [id number] Renal function 2000 panelOrd ered By: Deion Dan on 07-13-2025 Albumin [Mass/Vol] 2.7 g/dL Low 3.2 - 5.2 g/dL [facility] Anion gap [Moles/Vol] 16 mmol/L 10 - 2 0 mmol/L [facility] Calcium [Mass/Vol] 8.7 mg/dL 8.4 - 10. 2 mg/dL [facility] Chloride [Moles/Vol] 102 mmol/L 98 - 10 8 mmol/L [facility] Creatinine [Mass/Vol] 4.29 mg/dL High 0.60 - 1.20 mg/dL [facility] GFR/1.73 sq M.predicted CKD-EPI (S/P/Bld) [Vol rate/Area] 10 Low - PINF [facility] Glucose [Mass/Vol] 80 mg/dL 65 - 99 mg/dL [facility] HCO3 [Moles/Vol] 26 mmol/L 21 - 32 mmol/L [facility] Interpretation and review of laboratory results Abnormal [facility] Phosphate [Mass/Vol] 4 mg/dL 2.8 - 4 .1 mg/dL [facility] Potassium [Moles/Vol] 3.9 mmol/L 3.5 - 5.1 mmol/L [facility] Sodium [Moles/Vol] 140 mmol/L 135 - 145 mmol/L [facility] Urea nitrogen [Mass/Vol] 41 mg/dL High 8 - 25 mg/dL [facility] Urea nitrogen/Creatinine [Mass ratio] 9.6 mg/mg Low 10.0 - 20.0 [facility] VANCOMYCIN LEVEL, RANDOMon 0 07-13-2025 VANCOMYCIN RANDOM 20.6 mcg/mL Normal [place] Comment on above: Order Comment: Pre-h emodialysis levelAs of 08/2022 vancomycin dosing for [facility] inpatients will be done by Bayesian dosing software rather than off traditional trough values. Please contact the site specific inpatient pharmacy before making dose changes off of trough values alone for admitted patients.No established reference range. Performed By: #### 4 6651 ####[facility] [address] [place] [address] Milton Hinojosa M.D. [id number] Vancomycin Level, Randomon 0 07-13-2025 Vancomycin [Mass/Vol] 20.6 mcg/mL [facility] Vancomycin [Mass/Vol]on 06-16 [facility] APTT HEPARIN COVERAGEon 06-16 aPTT Coag (Bld) [Time] 90 s High [address] [place] [address] Comment on above: Order Comment: Thera peutic range for APTT's is 68 - 104 seconds Performed By: #### 4 [id number] ####[facility] [address] [place], [place] [address] Milton Hinojosa M.D. [id number] aPTT Coag (Bld) [Time] 88 s High [address] [place] [address] Comment on above: Order Comment: Thera peutic range for APTT's is 68 - 104 seconds Performed By: #### 4 6887 ####[facility] [address] [place], [place] [address] Milton Hinojosa M.D. [id number] aPTT Coag (Bld) [Time] 99 s High [address] [place] [address] Comment on above: Order Comment: Therjose penny range for APTT's is 68 - 104 seconds Performed By: #### 4 [id number] ####[facility] [address] [place] [address] 48995 Milton Hinojosa M.D. [id number] APTT Heparin Coverageon 06-16 aPTT Coag (Bld) [Time] 90 s High [facility] Interpretation and review of laboratory results Abnormal [facility] aPTT Coag (Bld) [Time] 99 s High [facility] Interpretation and review of laboratory results Abnormal [facility] APTT Heparin CoverageOrdered By: Sheila Sanchez on 07-12-2025 aPTT Coag (Bld) [Time] 88 s [facility] Interpretation and review of laboratory results Abnormal [facility] Bacteria identified Cx Nom ( Bld)on 07-12-2025 Interpretation and review of laboratory results Normal [facility] CALCIUM, IONIZEDon CALCIUM IONIZED 4.6 mg/dL Normal 4.5-5.3 [facility] Comment on above: Performed By: #### 4 5190 ####[facility] [address] [place], [place] [address] Milton Hinojosa M.D. [id number] CBCon 07-12-2025 AUTO NRBC 0.0 % Normal [facility] Comment on above: Performed By: #### 4 [id number] ####[facility] [address] [place] [address] 48579 Milton Hinojosa M.D. [id number] AUTO NRBC ABS COUNT 0.00 K/mcL Normal 0.00-0.00 [facility] Comment on above: Performed By: #### 4 [id number] ####[facility] [address] [place] [address] 92481 Milton Hinojosa M.D. [id number] Erythrocyte distribution width (RBC) [Ratio] 16.0 % High 11.6-14.8 [facility] Comment on above: Performed By: #### 4 5246 ####[facility] [address] [place], [place] [address] Milton Hinojosa M.D. [id number] Hematocrit (Bld) [Volume fraction] 26.7 % Low 36.0-46.0 [facility] Comment on above: Performed By: #### 4 [id number] ####[facility] [address] [place] [address] Milton Hinojosa M.D. [id number] Hemoglobin (Bld) [Mass/Vol] 8.4 g/dL Low 12.0-16.0 [facility] Comment on above: Performed By: #### 4 [id number] ####[facility] [address] [place] [address] Milton Hinojosa M.D. [id number] MCH (RBC) [Entitic mass] 28.3 pg Normal 26.0-34.0 [facility] Comment on above: Performed By: #### 4 [id number] ####[facility] [address] [place], [place] [address] Milton Hinojosa M.D. [id number] MCV (RBC) [Entitic vol] 89.9 fL Normal 80.0-100.0 [facility] Comment on above: Performed By: #### 4 [id number] ####[facility] [address] [place], [place] [address] Milton Hinojosa M.D. [id number] MEAN CORPUSCULAR HEMOGLOBIN CONC 31.5 g/dL Normal 31.0-37.0 [facility] Comment on above: Performed By: #### 4 [id number] ####[facility] [address] [place], [place] [address] Milton Hinojosa M.D. [id number] Platelet mean volume (Bld) [Entitic vol] 9.8 fL Normal 9.4-12.4 [facility] Comment on above: Performed By: #### 4 [id number] ####[facility] [address] [place] [address] 19867 Milton Hinojosa M.D. [id number] Platelets (Bld) [#/Vol] 139 10*3/uL Low 150-400 [facility] Comment on above: Performed By: #### 4 [id number] ####[facility] [address] [place] [address] 35407 Milton Hinojosa M.D. [id number] RBC (Bld) [#/Vol] 2.97 10*6/uL Low 4.00-5.20 [facility] Comment on above: Performed By: #### 4 [id number] ####[facility] [address] [place] [address] 91779 Milton Hinojosa M.D. [id number] WBC (Bld) [#/Vol] 6.26 10*3/uL Normal 4.50-11.00 [facility] Comment on above: Performed By: #### 4 [id number] ####[facility] [address] [place] [address] 24692 Milton Hinojosa M.D. [id number] CBC panel Auto (Bld)on 07-12 Erythrocyte distribution width (RBC) [Entitic vol] 16 % High 11.6 - 14.8 % [facility] Hematocrit (Bld) [Volume fraction] 26.7 % Low 36.0 - 46.0 % [facility] Hemoglobin (Bld) [Mass/Vol] 8.4 g/dL Low 12.0 - 16.0 g/dL [facility] Interpretation and review of laboratory results Abnormal [facility] MCH (RBC) [Entitic mass] 28.3 pg 26.0 - 34.0 pg [facility] MCHC (RBC) [Mass/Vol] 31.5 g/dL 31.0 - 37.0 g/dL [facility] MCV (RBC) [Entitic vol] 89.9 fL 80.0 - 100.0 fL [facility] Nucleated RBC (Bld) [#/Vol] 0 10*3/uL [facility] Nucleated RBC/100 WBC (Bld) [Ratio] 0 % [facility] Platelet mean volume (Bld) [Entitic vol] 9.8 fL 9.4 - 12.4 fL [facility] Platelets (Bld) [#/Vol] 139 10*3/uL Low [facility] RBC (Bld) [#/Vol] 2.97 10*6/uL Low [facility] ealth WBC (Bld) [#/Vol] 6.26 10*3/uL [facility]alth [facility] CONSULTon 07-12-2025 CONSULT Normal [facility] CPKon 07-12-2025 CPK 11 U/L Low 40-170 [facility] Comment on above: Performed By: #### 4 [id number] ####[facility] [address] [place], [place] [address] Milton Hinojosa M.D. [id number] CPK NO MBon 07-12-2025 CK [Catalytic activity/Vol] 11 U/L Low 40 - 170 U/L [facility] CRP [Mass/Vol]on 07-12-2025 Interpretation and review of laboratory results Abnormal [facility] CRP, INFLAMMATIONon 07-12-20 25 CRP [Mass/Vol] 109.9 mg/L High 0.0-10.0 [facility] Comment on above: Performed By: #### 4 [id number] ####[facility] [address] [place], [place] [address] Milton Hinojosa M.D. [id number] [facility] CRP [Mass/Vol] 109.9 mg/L High 0.0 - 10.0 mg/L [facility] CT PELVIS WITHOUT CONTRASTon 07-12-2025 CT PELVIS WITHOUT CONTRAST Normal [facility] Comment on above: Order Comment: Injur y/Trauma or Illness?:Illness/OtherHow long have you had these symptoms (acute/chronic)?:ChronicReason for exam?:evaluate for R hip effusion that would ammenable to aspiration. R ARMIDA in setting of bacteremia, MARS sequence pleaseType of Exam?:InitialAdditional signs and symptoms?:evaluate for R hip effusion that would ammenable to aspiration. R ARMIDA in setting of bacteremia, MARS sequence pleasethey mean SEMAR not MARS CT Pelvis WO contraston - GE RIS GE RIS [facility] Radiology Study observation (narrative) [facility] CT Pelvis WO contrastOrdered By: Ho Mahajan on 07-12-2025 [facility] Work Phone: Calcium, Ionizedon Calcium.ionized [Mass/Vol] 4.6 mg/dL 4.5 - 5.3 mg/dL [facility] Calcium.ionized [Mass/Vol]on 07-12-2025 Interpretation and review of laboratory results Normal [facility] ESR Westergren method (Bld) [Velocity]on 07-12-2025 ESR (Bld) [Velocity] 75 mm/h High [facility] Interpretation and review of laboratory results Abnormal [facility] Glucose (Bld) [Mass/Vol]on 0 07-12-2025 Glucose [Mass/Vol] 142 mg/dL High 65 - 99 mg/dL [facility] Interpretation and review of laboratory results Abnormal [facility] Glucose [Mass/Vol] 106 mg/dL High 65 - 99 mg/dL [facility]Health Interpretation and review of laboratory results Abnormal [facility] Glucose [Mass/Vol] 106 mg/dL High 65 - 99 mg/dL [facility] Interpretation and review of laboratory results Abnormal [facility] Glucose [Mass/Vol] 83 mg/dL 65 - 99 mg/dL [facility] Interpretation and review of laboratory results Normal [facility] Laboratory - Microbiology an d Antimicrobial susceptibilityon 07-12-2025 Bacteria identified Cx Nom (Bld) No [facility] MAGNESIUM LEVELon 07-12-2025 Magnesium [Mass/Vol] 1.8 mg/dL Normal 1.6-2.4 [facility] Comment on above: Performed By: #### 4 [id number] ####[facility] [address] [place] [address] Milton Hinojosa M.D. [id number] Magnesiumon 07-12-2025 Magnesium [Mass/Vol] 1.8 mg/dL 1.6 - 2 .4 mg/dL [facility] Magnesium [Mass/Vol]on 07-12 Interpretation and review of laboratory results Normal [facility] No Panel Informationon 07-12 Interpretation and review of laboratory results Abnormal [facility] Glucose [Mass/Vol] 142 mg/dL High 65-99 [place] Comment on above: Performed By: #### 4 [id number] ####[facility] [address] [place] [address] [id number] [facility] Glucose [Mass/Vol] 106 mg/dL High 65-99 [place] Comment on above: Performed By: #### 4 [id number] ####[facility] [address] [place] [address] [id number] [facility] Glucose [Mass/Vol] 106 mg/dL High 65- [place] Comment on above: Performed By: #### 4 [id number] ####[facility] [address] [place] [address] [id number] [facility] Glucose [Mass/Vol] 83 mg/dL Normal 65-99 [place] Comment on above: Performed By: #### 4 [id number] ####[facility] [address] [place] [address] [id number] [facility] RENAL FUNCTION PANELon 07-12 Albumin [Mass/Vol] 2.7 g/dL Low 3.2-5.2 [place] Comment on above: Order Comment: [facility] has implemented the eGFR calculation approach that does not have a coefficient for race that conforms to the NKF-ASN Task Force Recommendations. Performed By: #### 4 [id number] ####[facility] [address] [place] [address] Milton Hinojosa M.D. [id number] Anion gap [Moles/Vol] 14 mmol/L Normal 10-20 [facility] Comment on above: Order Comment: [facility] has implemented the eGFR calculation approach that does not have a coefficient for race that conforms to the NKF-ASN Task Force Recommendations. Performed By: #### 4 [id number] ####[facility] [address] [place] [address] Milton Hinojosa M.D. [id number] Calcium [Mass/Vol] 8.2 mg/dL Low 8.4-10.2 [place] Comment on above: Order Comment: [facility] has implemented the eGFR calculation approach that does not have a coefficient for race that conforms to the NKF-ASN Task Force Recommendations. Performed By: #### 4 6449 ####[facility] [address] [place], [place] [address] Milton Hinojosa M.D. [id number] Chloride [Moles/Vol] 100 mmol/L Normal 98-108 [facility] Comment on above: Order Comment: [facility] has implemented the eGFR calculation approach that does not have a coefficient for race that conforms to the NKF-ASN Task Force Recommendations. Performed By: #### 4 [id number] ####[facility] [address] [place], [place] [address] Milton Hinojosa M.D. [id number] Creatinine [Mass/Vol] 3.53 mg/dL High 0.60-1.20 [facility] Comment on above: Order Comment: [facility] has implemented the eGFR calculation approach that does not have a coefficient for race that conforms to the NKF-ASN Task Force Recommendations. Performed By: #### 4 [id number] ####[facility] [address] [place], [place] [address] Milton Hinojosa M.D. [id number] EGFR 13 mL/min/1.73 m2 Low >=60 [facility] Comment on above: Order Comment: [facility] has implemented the eGFR calculation approach that does not have a coefficient for race that conforms to the NKF-ASN Task Force Recommendations. Result Comment: Lalita mated GFR was calculated using the 2020 CKD-EPI creatinine equation. Performed By: #### 4 [id number] ####[facility] [address] [place], [place] [address] Milton Hinojosa M.D. [id number] Glucose [Mass/Vol] 96 mg/dL Normal 65-99 [place] Comment on above: Order Comment: [facility] has implemented the eGFR calculation approach that does not have a coefficient for race that conforms to the NKF-ASN Task Force Recommendations. Performed By: #### 4 6449 ####[facility] [address] [place] [address] Milton Hinojosa M.D. [id number] HCO3 (Bld) [Moles/Vol] 27 mmol/L Normal 21-32 [facility] Comment on above: Order Comment: [facility] has implemented the eGFR calculation approach that does not have a coefficient for race that conforms to the NKF-ASN Task Force Recommendations. Performed By: #### 4 6449 ####[facility] [address] [place], [place] [address] Milton Hinojosa M.D. [id number] Phosphate [Mass/Vol] 3.4 mg/dL Normal 2.8-4.1 [facility] Comment on above: Order Comment: [facility] has implemented the eGFR calculation approach that does not have a coefficient for race that conforms to the NKF-ASN Task Force Recommendations. Performed By: #### 4 [id number] ####[facility] [address] [place], [place] [address] Milton Hinojosa M.D. [id number] Potassium [Moles/Vol] 4.3 mmol/L Normal 3.5-5.1 [facility] Comment on above: Order Comment: [facility] has implemented the eGFR calculation approach that does not have a coefficient for race that conforms to the NKF-ASN Task Force Recommendations. Performed By: #### 4 [id number] ####[facility] [address] [place], [place] [address] Milton Hinojosa M.D. [id number] Sodium [Moles/Vol] 137 mmol/L Normal 135-145 [place] Comment on above: Order Comment: [facility] has implemented the eGFR calculation approach that does not have a coefficient for race that conforms to the NKF-ASN Task Force Recommendations. Performed By: #### 4 6449 ####[facility] [address] [place] [address] Milton Hinojosa M.D. [id number] Urea nitrogen [Mass/Vol] 25 mg/dL Normal 8-25 [facility] Comment on above: Order Comment: [facility] has implemented the eGFR calculation approach that does not have a coefficient for race that conforms to the NKF-ASN Task Force Recommendations. Performed By: #### 4 [id number] ####[facility] [address] [place] [address] Milton Hinojosa M.D. [id number] Urea nitrogen/Creatinine [Mass ratio] 7.1 mg/mg Low 10.0-20.0 [facility] Comment on above: Order Comment: [facility] has implemented the eGFR calculation approach that does not have a coefficient for race that conforms to the NKF-ASN Task Force Recommendations. Performed By: #### 4 [id number] ####[facility] [address] [place] [address] Milton Hinojosa M.D. [id number] Renal function 2000 panelon 07-12-2025 Albumin [Mass/Vol] 2.7 g/dL Low 3.2 - 5.2 g/dL [facility] Anion gap [Moles/Vol] 14 mmol/L 10 - 2 0 mmol/L [facility] Calcium [Mass/Vol] 8.2 mg/dL Low 8.4 - 10. 2 mg/dL [facility] Chloride [Moles/Vol] 100 mmol/L 98 - 10 8 mmol/L [facility] Creatinine [Mass/Vol] 3.53 mg/dL High 0.60 - 1.20 mg/dL [facility] GFR/1.73 sq M.predicted CKD-EPI (S/P/Bld) [Vol rate/Area] 13 Low - PINF [facility] Glucose [Mass/Vol] 96 mg/dL 65 - 99 mg/dL [facility] HCO3 [Moles/Vol] 27 mmol/L 21 - 32 mmol/L [facility] Phosphate [Mass/Vol] 3.4 mg/dL 2.8 - 4 .1 mg/dL [facility] Potassium [Moles/Vol] 4.3 mmol/L 3.5 - 5.1 mmol/L [facility] Sodium [Moles/Vol] 137 mmol/L 135 - 145 mmol/L [facility] Urea nitrogen [Mass/Vol] 25 mg/dL 8 - 25 mg/dL [facility] Urea nitrogen/Creatinine [Mass ratio] 7.1 mg/mg Low 10.0 - 20.0 [facility] SEDIMENTATION RATEon 025 SEDIMENTATION RATE, ERYTHROCYTE 75 mm/hr High 0-30 [facility] Comment on above: Performed By: #### 4 [id number] ####[facility] [address] [place] [address] Milton Hinojosa M.D. [id number] VR Dialysis Cath Insert Tunn sondra 07-12-2025 GE RIS GE RIS [facility] VR Dialysis Cath Insert Tunn elOrdered By: Chandrakant Oliva on 07-12-2025 [facility] Work Phone: APTT HEPARIN COVERAGEon 06-16 aPTT Coag (Bld) [Time] 49 s High 23-34 [facility] Comment on above: Order Comment: Thera peutic range for APTT's is 68 - 104 seconds Performed By: #### 4 [id number] ####[facility] [address] [place] [address] Milton Hinojosa M.D. [id number] APTT Heparin CoverageOrdered By: Jimmie Cleveland on 07-11-2025 aPTT Coag (Bld) [Time] 49 s High [facility] Interpretation and review of laboratory results Abnormal [facility] APTT Heparin Coverageon 06-16 aPTT Coag (Bld) [Time] 86 s High [facility] Interpretation and review of laboratory results Abnormal [facility] CALCIUM, IONIZEDon CALCIUM IONIZED 4.6 mg/dL Normal 4.5-5.3 [facility] Comment on above: Performed By: #### 4 5190 ####[facility] [address] [place], [place] [address] Milton Hinojosa M.D. [id number] CBCon 07-11-2025 AUTO NRBC 0.0 % Normal [facility] Comment on above: Performed By: #### 4 [id number] ####[facility] [address] [place], [place] [address] Milton Hinojosa M.D. [id number] AUTO NRBC ABS COUNT 0.00 K/mcL Normal 0.00-0.00 [facility] Comment on above: Performed By: #### 4 [id number] ####[facility] [address] [place] [address] Milton Hinojosa M.D. [id number] Erythrocyte distribution width (RBC) [Ratio] 15.9 % High 11.6-14.8 [facility] Comment on above: Performed By: #### 4 [id number] ####[facility] [address] [place], [place] [address] Milton Hinojosa M.D. [id number] Hematocrit (Bld) [Volume fraction] 27.8 % Low 36.0-46.0 [facility] Comment on above: Performed By: #### 4 [id number] ####[facility] [address] [place], [place] [address] Milton Hinojosa M.D. [id number] Hemoglobin (Bld) [Mass/Vol] 8.8 g/dL Low 12.0-16.0 [facility] Comment on above: Performed By: #### 4 [id number] ####[facility] [address] [place], [place] [address] Milton Hinojosa M.D. [id number] MCH (RBC) [Entitic mass] 28.5 pg Normal 26.0-34.0 [facility] Comment on above: Performed By: #### 4 [id number] ####[facility] [address] [place] [address] Milton Hinojosa M.D. [id number] MCV (RBC) [Entitic vol] 90.0 fL Normal 80.0-100.0 [facility] Comment on above: Performed By: #### 4 [id number] ####[facility] [address] [place] [address] Milton Hinojosa M.D. [id number] MEAN CORPUSCULAR HEMOGLOBIN CONC 31.7 g/dL Normal 31.0-37.0 [facility] Comment on above: Performed By: #### 4 [id number] ####[facility] [address] [place], [place] [address] Milton Hinojosa M.D. [id number] Platelet mean volume (Bld) [Entitic vol] 10.4 fL Normal 9.4-12.4 [facility] Comment on above: Performed By: #### 4 [id number] ####[facility] [address] [place] [address] Milton Hinojosa M.D. [id number] Platelets (Bld) [#/Vol] 171 10*3/uL Normal 150-400 [facility] Comment on above: Performed By: #### 4 [id number] ####[facility] [address] [place], [place] [address] Milton Hinojosa M.D. [id number] RBC (Bld) [#/Vol] 3.09 10*6/uL Low 4.00-5.20 [facility] Comment on above: Performed By: #### 4 [id number] ####[facility] [address] [place] [address] Milton Hinojosa M.D. [id number] WBC (Bld) [#/Vol] 7.32 10*3/uL Normal 4.50-11.00 [facility] Comment on above: Performed By: #### 4 [id number] ####[facility] [address] [address] Milton Hinojosa M.D. [id number] CBC panel Auto (Bld)on 07-11 Erythrocyte distribution width (RBC) [Entitic vol] 15.9 % High 11.6 - 14.8 % [facility] Hematocrit (Bld) [Volume fraction] 27.8 % Low 36.0 - 46.0 % [facility] Hemoglobin (Bld) [Mass/Vol] 8.8 g/dL Low 12.0 - 16.0 g/dL [facility] Interpretation and review of laboratory results Abnormal [facility] MCH (RBC) [Entitic mass] 28.5 pg 26.0 - 34.0 pg [facility] MCHC (RBC) [Mass/Vol] 31.7 g/dL 31.0 - 37.0 g/dL [facility] MCV (RBC) [Entitic vol] 90 fL 80.0 - 100.0 fL [facility] Nucleated RBC (Bld) [#/Vol] 0 10*3/uL [facility] Nucleated RBC/100 WBC (Bld) [Ratio] 0 % [facility] Platelet mean volume (Bld) [Entitic vol] 10.4 fL 9.4 - 12.4 fL [facility] Platelets (Bld) [#/Vol] 171 10*3/uL [facility] RBC (Bld) [#/Vol] 3.09 10*6/uL Low [facility] WBC (Bld) [#/Vol] 7.32 10*3/uL [facility] Calcium, Ionizedon Calcium.ionized [Mass/Vol] 4.6 mg/dL 4.5 - 5.3 mg/dL [facility] Calcium.ionized [Mass/Vol]on 07-11-2025 Interpretation and review of laboratory results Normal [facility] Glucose (Bld) [Mass/Vol]on 0 07-11-2025 Glucose [Mass/Vol] 109 mg/dL High 65 - 99 mg/dL [facility] Interpretation and review of laboratory results Abnormal [facility] Glucose [Mass/Vol] 118 mg/dL High 65 - 99 mg/dL [facility] Interpretation and review of laboratory results Abnormal [facility] Glucose [Mass/Vol] 96 mg/dL 65 - 99 mg/dL [facility] Interpretation and review of laboratory results Normal [facility] Glucose [Mass/Vol] 71 mg/dL 65 - 99 mg/dL [facility] oHeal Interpretation and review of laboratory results Normal [facility] MAGNESIUM LEVELon 07-11-2025 Magnesium [Mass/Vol] 1.9 mg/dL Normal 1.6-2.4 [facility] Comment on above: Performed By: #### 4 [id number] ####[facility] [address] [place] [address] Milton Hinojosa M.D. [id number] Magnesiumon 07-11-2025 Magnesium [Mass/Vol] 1.9 mg/dL 1.6 - 2 .4 mg/dL [facility] Magnesium [Mass/Vol]on 07-11 Interpretation and review of laboratory results Normal [facility] No Panel Informationon 07-11 [facility] POC GLUCOSE - [facility] 025 Glucose [Mass/Vol] 109 mg/dL High 65-99 [place] Comment on above: Performed By: #### 4 [id number] ####[facility] [address] [place] [address] [id number] [facility] Glucose [Mass/Vol] 118 mg/dL High 65-99 [place] Comment on above: Performed By: #### 4 [id number] ####[facility] [address] [place] [address] [id number] [facility] Glucose [Mass/Vol] 96 mg/dL Normal 65-99 [place] Comment on above: Performed By: #### 4 [id number] ####[facility] [address] [place] [address] [id number] [facility] Glucose [Mass/Vol] 71 mg/dL Normal 65-99 [place] Comment on above: Performed By: #### 4 6993 ####[facility] [address] [place] [address] [id number] [facility] RENAL FUNCTION PANELon 07-11 Albumin [Mass/Vol] 2.7 g/dL Low 3.2-5.2 [place] Comment on above: Order Comment: [facility] has implemented the eGFR calculation approach that does not have a coefficient for race that conforms to the NKF-ASN Task Force Recommendations. Performed By: #### 4 6449 ####[facility] [address] [place] [address] Milton Hinojosa M.D. [id number] Anion gap [Moles/Vol] 16 mmol/L Normal 10-20 [facility] Comment on above: Order Comment: [facility] has implemented the eGFR calculation approach that does not have a coefficient for race that conforms to the NKF-ASN Task Force Recommendations. Performed By: #### 4 6449 ####[facility] [address] [place], [place] [address] Milton Hinojosa M.D. [id number] Calcium [Mass/Vol] 8.8 mg/dL Normal 8.4-10.2 [place] Comment on above: Order Comment: [facility] has implemented the eGFR calculation approach that does not have a coefficient for race that conforms to the NKF-ASN Task Force Recommendations. Performed By: #### 4 [id number] ####[facility] [address] [place] [address] Milton Hinojosa M.D. [id number] Chloride [Moles/Vol] 100 mmol/L Normal 98-108 [facility] Comment on above: Order Comment: [facility] has implemented the eGFR calculation approach that does not have a coefficient for race that conforms to the NKF-ASN Task Force Recommendations. Performed By: #### 4 [id number] ####[facility] [address] [place] [address] Milton Hinojosa M.D. [id number] Creatinine [Mass/Vol] 4.01 mg/dL High 0.60-1.20 [facility] Comment on above: Order Comment: [facility] has implemented the eGFR calculation approach that does not have a coefficient for race that conforms to the NKF-ASN Task Force Recommendations. Performed By: #### 4 [id number] ####[facility] [address] [place] [address] Milton Hinojosa M.D. [id number] EGFR 11 mL/min/1.73 m2 Low >=60 [facility] Comment on above: Order Comment: [facility] has implemented the eGFR calculation approach that does not have a coefficient for race that conforms to the NKF-ASN Task Force Recommendations. Result Comment: Lalita mated GFR was calculated using the 2020 CKD-EPI creatinine equation. Performed By: #### 4 [id number] ####[facility] [address] [place] [address] Milton Hinojosa M.D. [id number] Glucose [Mass/Vol] 79 mg/dL Normal 65-99 [place] Comment on above: Order Comment: [facility] has implemented the eGFR calculation approach that does not have a coefficient for race that conforms to the NKF-ASN Task Force Recommendations. Performed By: #### 4 [id number] ####[facility] [address] [place] [address] 590[address] Milton Hinojosa M.D. [id number] HCO3 (Bld) [Moles/Vol] 26 mmol/L Normal 21-32 [facility] Comment on above: Order Comment: [facility] has implemented the eGFR calculation approach that does not have a coefficient for race that conforms to the NKF-ASN Task Force Recommendations. Performed By: #### 4 6449 ####[facility] [address] [place] [address] 36071 Milton Hinojosa M.D. [id number] Phosphate [Mass/Vol] 4.1 mg/dL Normal 2.8-4.1 [facility] Comment on above: Order Comment: [facility] has implemented the eGFR calculation approach that does not have a coefficient for race that conforms to the NKF-ASN Task Force Recommendations. Performed By: #### 4 6449 ####[facility] [address] [place] [address] 07074 Milton Hinojosa M.D. [id number] Potassium [Moles/Vol] 4.1 mmol/L Normal 3.5-5.1 [facility] Comment on above: Order Comment: [facility] has implemented the eGFR calculation approach that does not have a coefficient for race that conforms to the NKF-ASN Task Force Recommendations. Performed By: #### 4 6449 ####[facility] [address] [place] [address] 34112 Milton Hinojosa M.D. [id number] Sodium [Moles/Vol] 138 mmol/L Normal 135-145 [place] Comment on above: Order Comment: [facility] has implemented the eGFR calculation approach that does not have a coefficient for race that conforms to the NKF-ASN Task Force Recommendations. Performed By: #### 4 6449 ####[facility] [address] [place] [address] 35626 Milton Hinojosa M.D. [id number] Urea nitrogen [Mass/Vol] 27 mg/dL High 8-25 [facility] Comment on above: Order Comment: [facility] has implemented the eGFR calculation approach that does not have a coefficient for race that conforms to the NKF-ASN Task Force Recommendations. Performed By: #### 4 6449 ####[facility] [address] [place] [address] 92333 Milton Hinojosa M.D. [id number] Urea nitrogen/Creatinine [Mass ratio] 6.7 mg/mg Low 10.0-20.0 [facility] Comment on above: Order Comment: [facility] has implemented the eGFR calculation approach that does not have a coefficient for race that conforms to the NKF-ASN Task Force Recommendations. Performed By: #### 4 6449 ####[facility] [address] [place], [place] [id number] Milton Hinojosa M.D. [id number] Renal function 2000 panelon 07-11-2025 Albumin [Mass/Vol] 2.7 g/dL Low 3.2 - 5.2 g/dL [facility] Anion gap [Moles/Vol] 16 mmol/L 10 - 2 0 mmol/L [facility] Calcium [Mass/Vol] 8.8 mg/dL 8.4 - 10. 2 mg/dL [facility] Chloride [Moles/Vol] 100 mmol/L 98 - 10 8 mmol/L [facility] Creatinine [Mass/Vol] 4.01 mg/dL High 0.60 - 1.20 mg/dL [facility] GFR/1.73 sq M.predicted CKD-EPI (S/P/Bld) [Vol rate/Area] 11 Low - PINF [facility] Glucose [Mass/Vol] 79 mg/dL 65 - 99 mg/dL [facility] HCO3 [Moles/Vol] 26 mmol/L 21 - 32 mmol/L [facility] Interpretation and review of laboratory results Abnormal [facility] Phosphate [Mass/Vol] 4.1 mg/dL 2.8 - 4 .1 mg/dL [facility] Potassium [Moles/Vol] 4.1 mmol/L 3.5 - 5.1 mmol/L [facility] Sodium [Moles/Vol] 138 mmol/L 135 - 145 mmol/L [facility] Urea nitrogen [Mass/Vol] 27 mg/dL High 8 - 25 mg/dL [facility] Urea nitrogen/Creatinine [Mass ratio] 6.7 mg/mg Low 10.0 - 20.0 [facility] VR Dialysis Cath Insert Tunn sondra 07-11-2025 Radiology Study observation (narrative) [facility] XR Hip - right 2 Viewson GE RIS GE RIS [facility] APTT HEPARIN COVERAGEon 06-16 aPTT Coag (Bld) [Time] 86 s High 23-34 [facility] Comment on above: Order Comment: Thera peutic range for APTT's is 68 - 104 seconds Performed By: #### 4 [id number] ####[facility] [place], [place] [address] Milton Hinojosa M.D. [id number] aPTT Coag (Bld) [Time] [address] Comment on above: Order Comment: Thera peutic range for APTT's is 68 - 104 secondsResults checked. Performed By: #### 4 [id number] ####[facility] [address] [place] [address] 23275 Milton Hinojosa M.D. [id number] aPTT Coag (Bld) [Time] [address] Comment on above: Order Comment: Thera peutic range for APTT's is 68 - 104 seconds Result Comment: Resu lts checked. Performed By: #### 4 [id number] ####[facility] [address] [place], [place] [address] Milton Hinojosa M.D. [id number] aPTT Coag (Bld) [Time] [address] Comment on above: Order Comment: Thera peutic range for APTT's is 68 - 104 seconds Performed By: #### 4 [id number] ####[facility] [address] [place] [address] 09030 Milton Hinojosa M.D. [id number] APTT Heparin CoverageOrdered By: Lindsay Curran on 07-10-2025 aPTT Coag (Bld) [Time] 62 s [facility] Interpretation and review of laboratory results Abnormal [facility] APTT Heparin Coverageon 06-16 aPTT Coag (Bld) [Time] 77 s [facility] Interpretation and review of laboratory results Abnormal [facility] aPTT Coag (Bld) [Time] 113 s [facility] Interpretation and review of laboratory results Abnormal [facility] CALCIUM, IONIZEDon 5 CALCIUM IONIZED 4.5 mg/dL Normal 4.5-5.3 [facility] Comment on above: Performed By: #### 4 5190 ####[facility] [address] [place] [address] 99942 Milton Hinojosa M.D. [id number] CBCon 07-10-2025 AUTO NRBC 0.0 % Normal [facility] Comment on above: Performed By: #### 4 [id number] ####[facility] [address] [place], [place] [address] Milton Hinojosa M.D. [id number] AUTO NRBC ABS COUNT 0.00 K/mcL Normal 0.00-0.00 [facility] Comment on above: Performed By: #### 4 [id number] ####[facility] [address] [place] [address] Milton Hinojosa M.D. [id number] Erythrocyte distribution width (RBC) [Ratio] 16.1 % High 11.6-14.8 [facility] Comment on above: Performed By: #### 4 [id number] ####[facility] [address] [place] [address] Milton Hinojosa M.D. [id number] Hematocrit (Bld) [Volume fraction] 27.4 % Low 36.0-46.0 [facility] Comment on above: Performed By: #### 4 [id number] ####[facility] [address] [place] [address] Milton Hinojosa M.D. [id number] Hemoglobin (Bld) [Mass/Vol] 8.8 g/dL Low 12.0-16.0 [facility] Comment on above: Performed By: #### 4 [id number] ####[facility] [address] [place] [address] Milton Hinojosa M.D. [id number] MCH (RBC) [Entitic mass] 28.9 pg Normal 26.0-34.0 [facility] Comment on above: Performed By: #### 4 [id number] ####[facility] [address] [place] [address] Milton Hinojosa M.D. [id number] MCV (RBC) [Entitic vol] 89.8 fL Normal 80.0-100.0 [facility] Comment on above: Performed By: #### 4 [id number] ####[facility] [address] [place] [address] 37751 Milton Hinojosa M.D. [id number] MEAN CORPUSCULAR HEMOGLOBIN CONC 32.1 g/dL Normal 31.0-37.0 [facility] Comment on above: Performed By: #### 4 [id number] ####[facility] [address] [place], [place] [address] Milton Hinojosa M.D. [id number] Platelet mean volume (Bld) [Entitic vol] 10.1 fL Normal 9.4-12.4 [facility] Comment on above: Performed By: #### 4 [id number] ####[facility] [address] [place], [place] [address] Milton Hinojosa M.D. [id number] Platelets (Bld) [#/Vol] 164 10*3/uL Normal 150-400 [facility] Comment on above: Performed By: #### 4 [id number] ####[facility] [address] [place] [address] 24887Zeina Hinojosa M.D. [id number] RBC (Bld) [#/Vol] 3.05 10*6/uL Low 4.00-5.20 [facility] Comment on above: Performed By: #### 4 [id number] ####[facility] [address] [place] [address] 05842 Milton Hinojosa M.D. [id number] WBC (Bld) [#/Vol] 7.62 10*3/uL Normal 4.50-11.00 [facility] Comment on above: Performed By: #### 4 [id number] ####[facility] [address] [place] [address] 37100 Milton Hinojosa M.D. [id number] CBC panel Auto (Bld)on 07-10 Erythrocyte distribution width (RBC) [Entitic vol] 16.1 % High 11.6 - 14.8 % [facility] Hematocrit (Bld) [Volume fraction] 27.4 % Low 36.0 - 46.0 % [facility] Hemoglobin (Bld) [Mass/Vol] 8.8 g/dL Low 12.0 - 16.0 g/dL [facility] Interpretation and review of laboratory results Abnormal [facility] MCH (RBC) [Entitic mass] 28.9 pg 26.0 - 34.0 pg [facility] MCHC (RBC) [Mass/Vol] 32.1 g/dL 31.0 - 37.0 g/dL [facility] MCV (RBC) [Entitic vol] 89.8 fL 80.0 - 100.0 fL [facility] Nucleated RBC (Bld) [#/Vol] 0 10*3/uL [facility] Nucleated RBC/100 WBC (Bld) [Ratio] 0 % [facility] Platelet mean volume (Bld) [Entitic vol] 10.1 fL 9.4 - 12.4 fL [facility] Platelets (Bld) [#/Vol] 164 10*3/uL [facility] RBC (Bld) [#/Vol] 3.05 10*6/uL Low [facility] WBC (Bld) [#/Vol] 7.62 10*3/uL [facility] eah [facility] CONSULTon 07-10-2025 CONSULT Normal [facility] CRP [Mass/Vol]on 07-10-2025 Interpretation and review of laboratory results Abnormal [facility] CRP, INFLAMMATIONon 07-10-20 25 CRP [Mass/Vol] 103.1 mg/L High 0.0-10.0 [facility] Comment on above: Performed By: #### 4 5334 ####[facility] [address] [place] [address] Milton Hinojosa M.D. [id number] CRP, Inflammationon 07-10-20 25 CRP [Mass/Vol] 103.1 mg/L High 0.0 - 10.0 mg/L [facility] CV IR DIALYSIS CATHETER INSE RTION TUNNELEDon 07-10-2025 CV IR DIALYSIS CATHETER INSERTION TUNNELED Normal [facility] Calcium, Ionizedon Calcium.ionized [Mass/Vol] 4.5 mg/dL 4.5 - 5.3 mg/dL [facility] Calcium.ionized [Mass/Vol]on 07-10-2025 Interpretation and review of laboratory results Normal [facility] ESR Westergren method (Bld) [Velocity]on 07-10-2025 ESR (Bld) [Velocity] 52 mm/h High [facility] Interpretation and review of laboratory results Abnormal [facility] Glucose (Bld) [Mass/Vol]on 0 07-10-2025 Glucose [Mass/Vol] 102 mg/dL High 65 - 99 mg/dL [facility] Interpretation and review of laboratory results Abnormal [facility] Glucose [Mass/Vol] 94 mg/dL 65 - 99 mg/dL [facility] Interpretation and review of laboratory results Normal [facility] Glucose [Mass/Vol] 100 mg/dL High 65 - 99 mg/dL [facility] Interpretation and review of laboratory results Abnormal [facility] Glucose [Mass/Vol] 86 mg/dL 65 - 99 mg/dL [facility] Interpretation and review of laboratory results Normal [facility] INR Coag (PPP) [Relative stefanie e]on 07-10-2025 Interpretation and review of laboratory results Abnormal [facility] PT Coag (PPP) [Time] 15.7 s High [facility] MAGNESIUM LEVELon 07-10-2025 Magnesium [Mass/Vol] 1.8 mg/dL Normal 1.6-2.4 [facility] Comment on above: Performed By: #### 4 6109 ####[facility] [address] [place] [address] 77195 Milton Hinojosa M.D. [id number] Magnesiumon 07-10-2025 Magnesium [Mass/Vol] 1.8 mg/dL 1.6 - 2 .4 mg/dL [facility] Magnesium [Mass/Vol]on 07-10 Interpretation and review of laboratory results Normal [facility] POC GLUCOSE - RALSon 025 Glucose [Mass/Vol] 102 mg/dL High 65-99 [place] Comment on above: Performed By: #### 4 6932 ####[facility] [address] [place] [address] 85934 [id number] [facility] Glucose [Mass/Vol] 94 mg/dL Normal 65-99 [place] Comment on above: Performed By: #### 4 6932 ####[facility] [address] [place] [address] [id number] [facility] Glucose [Mass/Vol] 100 mg/dL High 65-99 [place] Comment on above: Performed By: #### 4 6932 ####[facility] [address] [place] [address] [id number] [facility] Glucose [Mass/Vol] 86 mg/dL Normal 65-99 [place] Comment on above: Performed By: #### 4 6932 ####[facility] [address] [place] [address] [id number] [facility] PT/INRon 07-10-2025 INR Coag (PPP) [Relative time] 1.2 {INR} High 0.8 - 1.1 [facility] INR Coag (PPP) [Relative time] 1.2 {INR} High 0.8-1.1 [facility] Comment on above: Order Comment: Praneeth barajas the induction phase of oral anticoagulation, the INR may not reflect the anticoagulation status of the patient. Therapeutic ranges for INR's are:Most clinical situations: INR 2.0-3.0Mechanical Prosthetic Valve: INR 2.5-3.5Critical: INR >5.0 Performed By: #### 4 6391 ####[facility] [address] [place] [address] Milton Hinojosa M.D. [id number] PT Coag (PPP) [Time] 15.7 s High 11.8-14.3 [facility] Comment on above: Order Comment: Praneeth barajas the induction phase of oral anticoagulation, the INR may not reflect the anticoagulation status of the patient. Therapeutic ranges for INR's are:Most clinical situations: INR 2.0-3.0Mechanical Prosthetic Valve: INR 2.5-3.5Critical: INR >5.0 Performed By: #### 4 6391 ####[facility] [address] [place] [address] Milton Hinojosa M.D. [id number] RENAL FUNCTION PANELon 07-10 Albumin [Mass/Vol] 2.8 g/dL Low 3.2-5.2 [place] Comment on above: Order Comment: [facility] has implemented the eGFR calculation approach that does not have a coefficient for race that conforms to the NKF-ASN Task Force Recommendations. Performed By: #### 4 6449 ####[facility] [address] [place], [place] [address] Milton Hinojosa M.D. [id number] Anion gap [Moles/Vol] 14 mmol/L Normal 10-20 [facility] Comment on above: Order Comment: [facility] has implemented the eGFR calculation approach that does not have a coefficient for race that conforms to the NKF-ASN Task Force Recommendations. Performed By: #### 4 6449 ####[facility] [address] [place], [place] [address] Milton Hinojosa M.D. [id number] Calcium [Mass/Vol] 8.5 mg/dL Normal 8.4-10.2 [place] Comment on above: Order Comment: [facility] has implemented the eGFR calculation approach that does not have a coefficient for race that conforms to the NKF-ASN Task Force Recommendations. Performed By: #### 4 6449 ####[facility] [address] [place] [address] 37626 Milton Hinojosa M.D. [id number] Chloride [Moles/Vol] 101 mmol/L Normal 98-108 [facility] Comment on above: Order Comment: [facility] has implemented the eGFR calculation approach that does not have a coefficient for race that conforms to the NKF-ASN Task Force Recommendations. Performed By: #### 4 6449 ####[facility] [address] [place], [place] [address] Milton Hinojosa M.D. [id number] Creatinine [Mass/Vol] 3.30 mg/dL High 0.60-1.20 [facility] Comment on above: Order Comment: [facility] has implemented the eGFR calculation approach that does not have a coefficient for race that conforms to the NKF-ASN Task Force Recommendations. Performed By: #### 4 6449 ####[facility] [address] [place] [address] 77894 Milton Hinojosa M.D. [id number] EGFR 14 mL/min/1.73 m2 Low >=60 [facility] Comment on above: Order Comment: [facility] has implemented the eGFR calculation approach that does not have a coefficient for race that conforms to the NKF-ASN Task Force Recommendations. Result Comment: Lalita mated GFR was calculated using the 2020 CKD-EPI creatinine equation. Performed By: #### 4 6449 ####[facility] [address] [place] [address] 07948 Milton Hinojosa M.D. [id number] Glucose [Mass/Vol] 80 mg/dL Normal 65-99 [place] Comment on above: Order Comment: [facility] has implemented the eGFR calculation approach that does not have a coefficient for race that conforms to the NKF-ASN Task Force Recommendations. Performed By: #### 4 6449 ####[facility] [address] [place] [address] 76967 Milton Hinojosa M.D. [id number] HCO3 (Bld) [Moles/Vol] 27 mmol/L Normal 21-32 [facility] Comment on above: Order Comment: [facility] has implemented the eGFR calculation approach that does not have a coefficient for race that conforms to the NKF-ASN Task Force Recommendations. Performed By: #### 4 6449 ####[facility] [address] [place] [address] 47075 Milton Hinojosa M.D. [id number] Phosphate [Mass/Vol] 3.3 mg/dL Normal 2.8-4.1 [facility] Comment on above: Order Comment: [facility] has implemented the eGFR calculation approach that does not have a coefficient for race that conforms to the NKF-ASN Task Force Recommendations. Performed By: #### 4 6449 ####[facility] [address] [place], [place] [address] Milton Hinojosa M.D. [id number] Potassium [Moles/Vol] 4.1 mmol/L Normal 3.5-5.1 [facility] Comment on above: Order Comment: [facility] has implemented the eGFR calculation approach that does not have a coefficient for race that conforms to the NKF-ASN Task Force Recommendations. Performed By: #### 4 6449 ####[facility] [address] [place], [place] [address] Milton Hinojosa M.D. [id number] Sodium [Moles/Vol] 138 mmol/L Normal 135-145 [place] Comment on above: Order Comment: [facility] has implemented the eGFR calculation approach that does not have a coefficient for race that conforms to the NKF-ASN Task Force Recommendations. Performed By: #### 4 6449 ####[facility] [address] [place], [place] [address] Milton Hinojosa M.D. [id number] Urea nitrogen [Mass/Vol] 21 mg/dL Normal 8-25 [facility] Comment on above: Order Comment: [facility] has implemented the eGFR calculation approach that does not have a coefficient for race that conforms to the NKF-ASN Task Force Recommendations. Performed By: #### 4 6449 ####[facility] [address] [place], [place] [address] Milton Hinojosa M.D. [id number] Urea nitrogen/Creatinine [Mass ratio] 6.4 mg/mg Low 10.0-20.0 [facility] Comment on above: Order Comment: [facility] has implemented the eGFR calculation approach that does not have a coefficient for race that conforms to the NKF-ASN Task Force Recommendations. Performed By: #### 4 6449 ####[facility] [address] [place], [place] [address] Milton Hinojosa M.D. [id number] Renal function 2000 panelOrd ered By: Marcela Castro on 07-10-2025 Albumin [Mass/Vol] 2.8 g/dL Low 3.2 - 5.2 g/dL [facility] Anion gap [Moles/Vol] 14 mmol/L 10 - 2 0 mmol/L [facility] Calcium [Mass/Vol] 8.5 mg/dL 8.4 - 10. 2 mg/dL [facility] Chloride [Moles/Vol] 101 mmol/L 98 - 10 8 mmol/L [facility] Creatinine [Mass/Vol] 3.3 mg/dL High 0.60 - 1.20 mg/dL [facility] GFR/1.73 sq M.predicted CKD-EPI (S/P/Bld) [Vol rate/Area] 14 Low - PINF [facility] Glucose [Mass/Vol] 80 mg/dL 65 - 99 mg/dL [facility] HCO3 [Moles/Vol] 27 mmol/L 21 - 32 mmol/L [facility] Interpretation and review of laboratory results Abnormal [facility] Phosphate [Mass/Vol] 3.3 mg/dL 2.8 - 4 .1 mg/dL [facility] Potassium [Moles/Vol] 4.1 mmol/L 3.5 - 5.1 mmol/L [facility] Sodium [Moles/Vol] 138 mmol/L 135 - 145 mmol/L [facility] Urea nitrogen [Mass/Vol] 21 mg/dL 8 - 25 mg/dL [facility] Urea nitrogen/Creatinine [Mass ratio] 6.4 mg/mg Low 10.0 - 20.0 [facility] SEDIMENTATION RATEon 025 SEDIMENTATION RATE, ERYTHROCYTE 52 mm/hr High 0-30 [facility] Comment on above: Performed By: #### 4 6477 ####[facility] [address] [place] [address] 99767 Milton Hinojosa M.D. [id number] XR HIP RIGHT 2-3 VIEWS (ROUT INE)on 07-10-2025 XR HIP RIGHT 2-3 VIEWS (ROUTINE) Normal [facility] Comment on above: Order Comment: Injur y/Trauma or Illness?:Illness/OtherHow long have you had these symptoms (acute/chronic)?:AcuteReason for exam?:right hip pain, s/p ARMIDA, recent MRSA bacteremiaHistory of cancer?:unkSurgeries, chemotherapy, or radiation?:unkType of Exam?:InitialAdditional signs and symptoms?:right hip pain, s/p ARMIDA, recent MRSA bacteremia XR Hip - right 2 Viewson Radiology Study observation (narrative) [facility] APTT HEPARIN COVERAGEon 06-16 aPTT Coag (Bld) [Time] [address] Comment on above: Order Comment: Thera peutic range for APTT's is 68 - 104 seconds Result Comment: Resu lts checked. Performed By: #### 4 [id number] ####[facility] [address] [place] [address] Milton Hinojosa M.D. [id number] aPTT Coag (Bld) [Time] [address] Comment on above: Order Comment: Thera peutic range for APTT's is 68 - 104 seconds Performed By: #### 4 [id number] ####[facility] [address] [place] [address] Milton Hinojosa M.D. [id number] aPTT Coag (Bld) [Time] [address] Comment on above: Order Comment: Thera peutic range for APTT's is 68 - 104 seconds Performed By: #### 4 6879 ####[facility] [address] [place] [address] Milton Hinojosa M.D. [id number] APTT Heparin Coverageon 06-16 aPTT Coag (Bld) [Time] 58 s High [facility] [place] Interpretation and review of laboratory results Abnormal [facility] aPTT Coag (Bld) [Time] 117 s [facility] Interpretation and review of laboratory results Abnormal [facility] APTT Heparin CoverageOrdered By: Fernanda Sears on 07-09-2025 aPTT Coag (Bld) [Time] 120 s [facility] Interpretation and review of laboratory results Abnormal [facility] Bacteria identified Cx Nom ( Bld)on 07-09-2025 Interpretation and review of laboratory results Normal [facility] CALCIUM, IONIZEDon CALCIUM IONIZED 4.6 mg/dL Normal 4.5-5.3 [facility] Comment on above: Performed By: #### 4 5190 ####[facility] [address] [place], [place] [address] Milton Hinojosa M.D. [id number] CBCon 07-09-2025 AUTO NRBC 0.0 % Normal [facility] Comment on above: Performed By: #### 4 [id number] ####[facility] [address] [place], [place] [address] Milton Hinojosa M.D. [id number] AUTO NRBC ABS COUNT 0.00 K/mcL Normal 0.00-0.00 [facility] Comment on above: Performed By: #### 4 [id number] ####[facility] [address] [place], [place] [address] Milton Hinojosa M.D. [id number] Erythrocyte distribution width (RBC) [Ratio] 16.5 % High 11.6-14.8 [facility] Comment on above: Performed By: #### 4 [id number] ####[facility] [address] [place], [place] [address] Milton Hinojosa M.D. [id number] Hematocrit (Bld) [Volume fraction] 29.0 % Low 36.0-46.0 [facility] Comment on above: Performed By: #### 4 [id number] ####[facility] [address] [place] [address] 416[address] Milton Hinojosa M.D. [id number] Hemoglobin (Bld) [Mass/Vol] 8.9 g/dL Low 12.0-16.0 [facility] Comment on above: Performed By: #### 4 [id number] ####[facility] [address] [place] [address] Milton Hinojosa M.D. [id number] MCH (RBC) [Entitic mass] 28.1 pg Normal 26.0-34.0 [facility] Comment on above: Performed By: #### 4 [id number] ####[facility] [address] [place] [address] Milton Hinojosa M.D. [id number] MCV (RBC) [Entitic vol] 91.5 fL Normal 80.0-100.0 [facility] Comment on above: Performed By: #### 4 [id number] ####[facility] [address] [place] [address] Milton Hinojosa M.D. [id number] MEAN CORPUSCULAR HEMOGLOBIN CONC 30.7 g/dL Low 31.0-37.0 [facility] Comment on above: Performed By: #### 4 [id number] ####[facility] [address] [place] [address] Milton Hinojosa M.D. [id number] Platelet mean volume (Bld) [Entitic vol] 9.9 fL Normal 9.4-12.4 [facility] Comment on above: Performed By: #### 4 [id number] ####[facility] [address] [place] [address] Milton Hinojosa M.D. [id number] Platelets (Bld) [#/Vol] 176 10*3/uL Normal 150-400 [facility] Comment on above: Performed By: #### 4 [id number] ####[facility] [address] [place] [address] Milton Hinojosa M.D. [id number] RBC (Bld) [#/Vol] 3.17 10*6/uL Low 4.00-5.20 [facility] Comment on above: Performed By: #### 4 [id number] ####[facility] [address] [place] [address]85[address] Milton Hinojosa M.D. [id number] WBC (Bld) [#/Vol] 7.27 10*3/uL Normal 4.50-11.00 [facility] Comment on above: Performed By: #### 4 [id number] ####[facility] [address] [place] [address] Milton Hinojosa M.D. [id number] CBC panel Auto (Bld)on 07-09 Erythrocyte distribution width (RBC) [Entitic vol] 16.5 % High 11.6 - 14.8 % [facility] [place] Hematocrit (Bld) [Volume fraction] 29 % Low 36.0 - 46.0 % [facility] Hemoglobin (Bld) [Mass/Vol] 8.9 g/dL Low 12.0 - 16.0 g/dL [facility] [place] Interpretation and review of laboratory results Abnormal [facility] MCH (RBC) [Entitic mass] 28.1 pg 26.0 - 34.0 pg [facility] MCHC (RBC) [Mass/Vol] 30.7 g/dL Low 31.0 - 37.0 g/dL [facility] [place] MCV (RBC) [Entitic vol] 91.5 fL 80.0 - 100.0 fL [facility] Nucleated RBC (Bld) [#/Vol] 0 10*3/uL [facility] [place] Nucleated RBC/100 WBC (Bld) [Ratio] 0 % [facility] Platelet mean volume (Bld) [Entitic vol] 9.9 fL 9.4 - 12.4 fL [facility] [place] Platelets (Bld) [#/Vol] 176 10*3/uL [facility] [place] RBC (Bld) [#/Vol] 3.17 10*6/uL Low [facility] WBC (Bld) [#/Vol] 7.27 10*3/uL [facility] Calcium, IonizedOrdered By: Parmjit Syed on 07-09-2025 Calcium.ionized [Mass/Vol] 4.6 mg/dL 4.5 - 5.3 mg/dL [facility] [place] Calcium.ionized [Mass/Vol]Or dered By: Parmjit Syed on 07-09-2025 Interpretation and review of laboratory results Normal [facility] Glucose (Bld) [Mass/Vol]on 0 07-09-2025 Glucose [Mass/Vol] 100 mg/dL High 65 - 99 mg/dL [facility] Interpretation and review of laboratory results Abnormal [facility] Glucose [Mass/Vol] 98 mg/dL 65 - 99 mg/dL [facility] Interpretation and review of laboratory results Normal [facility] Glucose [Mass/Vol] 67 mg/dL 65 - 99 mg/dL [facility] Interpretation and review of laboratory results Normal [facility] Glucose [Mass/Vol] 80 mg/dL 65 - 99 mg/dL [facility] Interpretation and review of laboratory results Normal [facility] Laboratory - Microbiology an d Antimicrobial susceptibilityon 07-09-2025 Bacteria identified Cx Nom (Bld) No [facility] 07-09-2025 Magnesium [Mass/Vol] 2.1 mg/dL Normal 1.6-2.4 [facility] Comment on above: Performed By: #### 4 6109 ####[facility] [address] [place] [address] Milton Hinojosa M.D. [id number] Magnesiumon 07-09-2025 Magnesium [Mass/Vol] 2.1 mg/dL 1.6 - 2 .4 mg/dL [facility] [place] Magnesium [Mass/Vol]on 07-09 Interpretation and review of laboratory results Normal [facility] POC GLUCOSE - KEVONSon 025 Glucose [Mass/Vol] 100 mg/dL High 65-99 [place] Comment on above: Performed By: #### 4 6913 ####[facility] [address] [place] [address] [id number] [facility] Glucose [Mass/Vol] 98 mg/dL Normal 65-99 [place] Comment on above: Performed By: #### 4 7848 ####[facility] [address] [place] [address] [id number] [facility] Glucose [Mass/Vol] 67 mg/dL Normal 65-99 [place] Comment on above: Performed By: #### 4 6932 ####[facility] [address] [place] [address] [id number] [facility] Glucose [Mass/Vol] 80 mg/dL Normal 65-99 [place] Comment on above: Performed By: #### 4 6932 ####[facility] [address] [place] [address] [id number] [facility] RENAL FUNCTION PANELon 07-09 Albumin [Mass/Vol] 2.6 g/dL Low 3.2-5.2 [place] Comment on above: Order Comment: [facility] has implemented the eGFR calculation approach that does not have a coefficient for race that conforms to the NKF-ASN Task Force Recommendations. Performed By: #### 4 6449 ####[facility] [address] [place] [address] Milton Hinojosa M.D. [id number] Anion gap [Moles/Vol] 16 mmol/L Normal 10-20 [facility] Comment on above: Order Comment: [facility] has implemented the eGFR calculation approach that does not have a coefficient for race that conforms to the NKF-ASN Task Force Recommendations. Performed By: #### 4 6449 ####[facility] [address] [place] [address] Milton Hinojosa M.D. [id number] Calcium [Mass/Vol] 8.2 mg/dL Low 8.4-10.2 [place] Comment on above: Order Comment: [facility] has implemented the eGFR calculation approach that does not have a coefficient for race that conforms to the NKF-ASN Task Force Recommendations. Performed By: #### 4 6449 ####[facility] [address] [place] [address] Milton Hinojosa M.D. [id number] Chloride [Moles/Vol] 106 mmol/L Normal 98-108 [facility] Comment on above: Order Comment: [facility] has implemented the eGFR calculation approach that does not have a coefficient for race that conforms to the NKF-ASN Task Force Recommendations. Performed By: #### 4 6449 ####[facility] [address] [place], [place] [address] Milton Hinojosa M.D. [id number] Creatinine [Mass/Vol] 4.16 mg/dL High 0.60-1.20 [facility] Comment on above: Order Comment: [facility] has implemented the eGFR calculation approach that does not have a coefficient for race that conforms to the NKF-ASN Task Force Recommendations. Performed By: #### 4 6449 ####[facility] [address] [place], [place] [address] Milton Hinojosa M.D. [id number] EGFR 11 mL/min/1.73 m2 Low >=60 [facility] Comment on above: Order Comment: [facility] has implemented the eGFR calculation approach that does not have a coefficient for race that conforms to the NKF-ASN Task Force Recommendations. Result Comment: Lalita mated GFR was calculated using the 2020 CKD-EPI creatinine equation. Performed By: #### 4 6449 ####[facility] [address] [place] [address] 778[address] Milton Hinojosa M.D. [id number] Glucose [Mass/Vol] 79 mg/dL Normal 65-99 [place] Comment on above: Order Comment: [facility] has implemented the eGFR calculation approach that does not have a coefficient for race that conforms to the NKF-ASN Task Force Recommendations. Performed By: #### 4 6449 ####[facility] [address] [place] [address] 11529 Milton Hinojosa M.D. [id number] HCO3 (Bld) [Moles/Vol] 25 mmol/L Normal 21-32 [facility] Comment on above: Order Comment: [facility] has implemented the eGFR calculation approach that does not have a coefficient for race that conforms to the NKF-ASN Task Force Recommendations. Performed By: #### 4 6449 ####[facility] [address] [place], [place] [address] Milton Hinojosa M.D. [id number] Phosphate [Mass/Vol] 4.8 mg/dL High 2.8-4.1 [facility] Comment on above: Order Comment: [facility] has implemented the eGFR calculation approach that does not have a coefficient for race that conforms to the NKF-ASN Task Force Recommendations. Performed By: #### 4 6449 ####[facility] [address] [place], [place] [address] Milton Hinojosa M.D. [id number] Potassium [Moles/Vol] 4.3 mmol/L Normal 3.5-5.1 [facility] Comment on above: Order Comment: [facility] has implemented the eGFR calculation approach that does not have a coefficient for race that conforms to the NKF-ASN Task Force Recommendations. Result Comment: Slig htly Hemolyzed Performed By: #### 4 6449 ####[facility] [address] [place], [place] [address] Milton Hinojosa M.D. [id number] Sodium [Moles/Vol] 143 mmol/L Normal 135-145 [place] Comment on above: Order Comment: [facility] has implemented the eGFR calculation approach that does not have a coefficient for race that conforms to the NKF-ASN Task Force Recommendations. Performed By: #### 4 6449 ####[facility] [address] [place] [address] 18467 Milton Hinojosa M.D. [id number] Urea nitrogen [Mass/Vol] 35 mg/dL High 8-25 [facility] Comment on above: Order Comment: [facility] has implemented the eGFR calculation approach that does not have a coefficient for race that conforms to the NKF-ASN Task Force Recommendations. Performed By: #### 4 6449 ####[facility] [address] [place] [address] 97947 Milton Hinojosa M.D. [id number] Urea nitrogen/Creatinine [Mass ratio] 8.4 mg/mg Low 10.0-20.0 [facility] Comment on above: Order Comment: [facility] has implemented the eGFR calculation approach that does not have a coefficient for race that conforms to the NKF-ASN Task Force Recommendations. Performed By: #### 4 6449 ####[facility] [address] [place], [place] [address] Milton Hinojosa M.D. [id number] Renal function 2000 panelon 07-09-2025 Albumin [Mass/Vol] 2.6 g/dL Low 3.2 - 5.2 g/dL [facility] Anion gap [Moles/Vol] 16 mmol/L 10 - 2 0 mmol/L [facility] [place] Calcium [Mass/Vol] 8.2 mg/dL Low 8.4 - 10. 2 mg/dL [facility] Chloride [Moles/Vol] 106 mmol/L 98 - 10 8 mmol/L [facility] Creatinine [Mass/Vol] 4.16 mg/dL High 0.60 - 1.20 mg/dL [facility] GFR/1.73 sq M.predicted CKD-EPI (S/P/Bld) [Vol rate/Area] 11 Low - PINF [facility] Glucose [Mass/Vol] 79 mg/dL 65 - 99 mg/dL [facility] HCO3 [Moles/Vol] 25 mmol/L 21 - 32 mmol/L [facility] [place] Interpretation and review of laboratory results Abnormal [facility] Phosphate [Mass/Vol] 4.8 mg/dL High 2.8 - 4 .1 mg/dL [facility] Potassium [Moles/Vol] 4.3 mmol/L 3.5 - 5.1 mmol/L [facility] Sodium [Moles/Vol] 143 mmol/L 135 - 145 mmol/L [facility] Urea nitrogen [Mass/Vol] 35 mg/dL High 8 - 25 mg/dL [facility] Urea nitrogen/Creatinine [Mass ratio] 8.4 mg/mg Low 10.0 - 20.0 [facility] APTT HEPARIN COVERAGEon 06-16 aPTT Coag (Bld) [Time] 104 s High 23-34 [facility] Comment on above: Order Comment: Thera peutic range for APTT's is 68 - 104 seconds Performed By: #### 4 6848 ####[facility] [address] [place] [address] Milton Hinojosa M.D. [id number] APTT Heparin Coverageon 06-16 aPTT Coag (Bld) [Time] 104 s High [facility] [place] Interpretation and review of laboratory results Abnormal [facility] Bacteria identified Cx Nom ( Bld)Ordered By: Daron Maciel on 07-08-2025 Gram Stain Result Positive Abnormal [facility] Interpretation and review of laboratory results Abnormal [facility] Blood Culture #2Ordered By: Daron Maciel on 07-08-2025 Bacteria identified Cx Nom (Bld) Staphylococcus aureus Abnormal [facility] CALCIUM, IONIZEDon CALCIUM IONIZED 4.6 mg/dL Normal 4.5-5.3 [facility] Comment on above: Performed By: #### 4 5190 ####[facility] [address] [place], [place] [address] Milton Hinojosa M.D. [id number] CBCon 07-08-2025 AUTO NRBC 0.0 % Normal [facility] Comment on above: Performed By: #### 4 [id number] ####[facility] [address] [place] [address] 18650 Milton Hinojosa M.D. [id number] AUTO NRBC ABS COUNT 0.00 K/mcL Normal 0.00-0.00 [facility] Comment on above: Performed By: #### 4 [id number] ####[facility] [address] [place], [place] [address] Milton Hinojosa M.D. [id number] Erythrocyte distribution width (RBC) [Ratio] 16.4 % High 11.6-14.8 [facility] Comment on above: Performed By: #### 4 [id number] ####[facility] [address] [place] [address] Milton Hinojosa M.D. [id number] Hematocrit (Bld) [Volume fraction] 29.3 % Low 36.0-46.0 [facility] Comment on above: Performed By: #### 4 [id number] ####[facility] [address] [place] [address] Milton Hinojosa M.D. [id number] Hemoglobin (Bld) [Mass/Vol] 9.2 g/dL Low 12.0-16.0 [facility] Comment on above: Performed By: #### 4 [id number] ####[facility] [address] [place] [address] Milton Hinojosa M.D. [id number] MCH (RBC) [Entitic mass] 28.6 pg Normal 26.0-34.0 [facility] Comment on above: Performed By: #### 4 [id number] ####[facility] [address] [place], [place] [address] Milton Hinojosa M.D. [id number] MCV (RBC) [Entitic vol] 91.0 fL Normal 80.0-100.0 [facility] Comment on above: Performed By: #### 4 [id number] ####[facility] [address] [place], [place] [address] Milton Hinojosa M.D. [id number] MEAN CORPUSCULAR HEMOGLOBIN CONC 31.4 g/dL Normal 31.0-37.0 [facility] Comment on above: Performed By: #### 4 5232 ####[facility] [address] [place] [address] Milton Hinojosa M.D. [id number] Platelet mean volume (Bld) [Entitic vol] 10.0 fL Normal 9.4-12.4 [facility] Comment on above: Performed By: #### 4 [id number] ####[facility] [address] [place], [place] [address] Milton Hinojosa M.D. [id number] Platelets (Bld) [#/Vol] 169 10*3/uL Normal 150-400 [facility] Comment on above: Performed By: #### 4 [id number] ####[facility] [address] [place] [address] Milton Hinojosa M.D. [id number] RBC (Bld) [#/Vol] 3.22 10*6/uL Low 4.00-5.20 [facility] Comment on above: Performed By: #### 4 [id number] ####[facility] [address] [place] [address] Milton Hinojosa M.D. [id number] WBC (Bld) [#/Vol] 8.74 10*3/uL Normal 4.50-11.00 [facility] Comment on above: Performed By: #### 4 [id number] ####[facility] [address] [place], [place] [address] Milton Hinojosa M.D. [id number] AUTO NRBC 0.0 % Normal [facility] Comment on above: Performed By: #### 4 [id number] ####[facility] [address] [place], [place] [address] Milton Hinojosa M.D. [id number] AUTO NRBC ABS COUNT 0.00 K/mcL Normal 0.00-0.00 [facility] Comment on above: Performed By: #### 4 [id number] ####[facility] [address] [place], [place] [address] Milton Hinojosa M.D. [id number] Erythrocyte distribution width (RBC) [Ratio] 16.3 % High 11.6-14.8 [facility] Comment on above: Performed By: #### 4 [id number] ####[facility] [address] [place], [place] [address] Milton Hinojosa M.D. [id number] Hematocrit (Bld) [Volume fraction] 30.8 % Low 36.0-46.0 [facility] Comment on above: Performed By: #### 4 [id number] ####[facility] [address] [place] [address] Milton Hinojosa M.D. [id number] Hemoglobin (Bld) [Mass/Vol] 9.6 g/dL Low 12.0-16.0 [facility] Comment on above: Performed By: #### 4 [id number] ####[facility] [address] [place] [address] Milton Hinojosa M.D. [id number] MCH (RBC) [Entitic mass] 28.7 pg Normal 26.0-34.0 [facility] Comment on above: Performed By: #### 4 [id number] ####[facility] [address] [place], [place] [address] Milton Hinojosa M.D. [id number] MCV (RBC) [Entitic vol] 91.9 fL Normal 80.0-100.0 [facility] Comment on above: Performed By: #### 4 [id number] ####[facility] [address] [place], [place] [address] Milton Hinojosa M.D. [id number] MEAN CORPUSCULAR HEMOGLOBIN CONC 31.2 g/dL Normal 31.0-37.0 [facility] Comment on above: Performed By: #### 4 5237 ####[facility] [address] [place], [place] [address] Milton Hinojosa M.D. [id number] Platelet mean volume (Bld) [Entitic vol] 10.1 fL Normal 9.4-12.4 [facility] Comment on above: Performed By: #### 4 [id number] ####[facility] [address] [place] [address] 18360 Milton Hinojosa M.D. [id number] Platelets (Bld) [#/Vol] 187 10*3/uL Normal 150-400 [facility] Comment on above: Performed By: #### 4 [id number] ####[facility] [address] [place] [address] 10321 Milton Hinojosa M.D. [id number] RBC (Bld) [#/Vol] 3.35 10*6/uL Low 4.00-5.20 [facility] Comment on above: Performed By: #### 4 [id number] ####[facility] [address] [place] [address] 95317 Milton Hinojosa M.D. [id number] WBC (Bld) [#/Vol] 9.96 10*3/uL Normal 4.50-11.00 [facility] Comment on above: Performed By: #### 4 [id number] ####[facility] [address] [place] [address] 17797 Milton Hinojosa M.D. [id number] CBC panel Auto (Bld)on 07-08 Erythrocyte distribution width (RBC) [Entitic vol] 16.4 % High 11.6 - 14.8 % [facility] Hematocrit (Bld) [Volume fraction] 29.3 % Low 36.0 - 46.0 % [facility] Hemoglobin (Bld) [Mass/Vol] 9.2 g/dL Low 12.0 - 16.0 g/dL [facility] Interpretation and review of laboratory results Abnormal [facility] MCH (RBC) [Entitic mass] 28.6 pg 26.0 - 34.0 pg [facility] MCHC (RBC) [Mass/Vol] 31.4 g/dL 31.0 - 37.0 g/dL [facility] MCV (RBC) [Entitic vol] 91 fL 80.0 - 100.0 fL [facility] Nucleated RBC (Bld) [#/Vol] 0 10*3/uL [facility] Nucleated RBC/100 WBC (Bld) [Ratio] 0 % [facility] Platelet mean volume (Bld) [Entitic vol] 10 fL 9.4 - 12.4 fL [facility] Platelets (Bld) [#/Vol] 169 10*3/uL [facility] RBC (Bld) [#/Vol] 3.22 10*6/uL Low [facility] WBC (Bld) [#/Vol] 8.74 10*3/uL [facility] Erythrocyte distribution width (RBC) [Entitic vol] 16.3 % High 11.6 - 14.8 % [facility] Hematocrit (Bld) [Volume fraction] 30.8 % Low 36.0 - 46.0 % [facility] Hemoglobin (Bld) [Mass/Vol] 9.6 g/dL Low 12.0 - 16.0 g/dL [facility] Interpretation and review of laboratory results Abnormal [facility] MCH (RBC) [Entitic mass] 28.7 pg 26.0 - 34.0 pg [facility] MCHC (RBC) [Mass/Vol] 31.2 g/dL 31.0 - 37.0 g/dL [facility] MCV (RBC) [Entitic vol] 91.9 fL 80.0 - 100.0 fL [facility] Nucleated RBC (Bld) [#/Vol] 0 10*3/uL [facility] Nucleated RBC/100 WBC (Bld) [Ratio] 0 % [facility] Platelet mean volume (Bld) [Entitic vol] 10.1 fL 9.4 - 12.4 fL [facility] Platelets (Bld) [#/Vol] 187 10*3/uL [facility] RBC (Bld) [#/Vol] 3.35 10*6/uL Low [facility] WBC (Bld) [#/Vol] 9.96 10*3/uL [facility] 07-08-2025 CONSULT Normal [facility] Calcium, Ionizedon Calcium.ionized [Mass/Vol] 4.6 mg/dL 4.5 - 5.3 mg/dL [facility] [place] Calcium.ionized [Mass/Vol]on 07-08-2025 Interpretation and review of laboratory results Normal [facility] Glucose (Bld) [Mass/Vol]on 0 07-08-2025 Glucose [Mass/Vol] 100 mg/dL High 65 - 99 mg/dL [facility] oHeal Interpretation and review of laboratory results Abnormal [facility] Glucose [Mass/Vol] 107 mg/dL High 65 - 99 mg/dL [facility] oHealth Interpretation and review of laboratory results Abnormal [facility] Glucose [Mass/Vol] 105 mg/dL High 65 - 99 mg/dL [facility] o[facility] Interpretation and review of laboratory results Abnormal [facility] Glucose [Mass/Vol] 98 mg/dL 65 - 99 mg/dL [facility]Health Interpretation and review of laboratory results Normal [facility] MAGNESIUM LEVELon 07-08-2025 Magnesium [Mass/Vol] 2.0 mg/dL Normal 1.6-2.4 [facility] Comment on above: Performed By: #### 4 6109 ####[facility] [address] [place] [address] Milton Hinojosa M.D. [id number] MR Lumbar spine WO contrasto n 07-08-2025 GE RIS GE RIS [facility] MR Lumbar spine WO contrastO rdered By: Asia Pa on 07-08-2025 [facility] Work Phone: Magnesiumon 07-08-2025 Magnesium [Mass/Vol] 2 mg/dL 1.6 - 2 .4 mg/dL [facility] Magnesium [Mass/Vol]on 07-08 Interpretation and review of laboratory results Normal [facility] No Panel Informationon 07-08 [facility] POC GLUCOSE - Kayley 025 Glucose [Mass/Vol] 100 mg/dL High 65-99 [place] Comment on above: Performed By: #### 4 5704 ####[facility] [address] [place] [address] [id number] RM[facility]OC Glucose [Mass/Vol] 107 mg/dL High 65-99 [place] Comment on above: Performed By: #### 4 6945 ####[facility] [address] [place] [address] [id number] [facility] Glucose [Mass/Vol] 105 mg/dL High 65-99 [place] Comment on above: Performed By: #### 4 6932 ####[facility] [address] [place] [address] [id number] RMOC Glucose [Mass/Vol] 98 mg/dL Normal 65-99 [place] Comment on above: Performed By: #### 4 6932 ####[facility] [address] [place] [address] [id number] HPOC RENAL FUNCTION PANELon 07-08 Albumin [Mass/Vol] 2.6 g/dL Low 3.2-5.2 [place] Comment on above: Order Comment: [facility] has implemented the eGFR calculation approach that does not have a coefficient for race that conforms to the NKF-ASN Task Force Recommendations. Performed By: #### 4 6449 ####[facility] [address] [place] [address] Milton Hinojosa M.D. [id number] Anion gap [Moles/Vol] 17 mmol/L Normal 10-20 [facility] Comment on above: Order Comment: [facility] has implemented the eGFR calculation approach that does not have a coefficient for race that conforms to the NKF-ASN Task Force Recommendations. Performed By: #### 4 6449 ####[facility] [address] [place], [place] [address] Milton Hinojosa M.D. [id number] Calcium [Mass/Vol] 8.1 mg/dL Low 8.4-10.2 [place] Comment on above: Order Comment: [facility] has implemented the eGFR calculation approach that does not have a coefficient for race that conforms to the NKF-ASN Task Force Recommendations. Performed By: #### 4 6449 ####[facility] [address] [place], [place] [address] Milton Hinojosa M.D. [id number] Chloride [Moles/Vol] 102 mmol/L Normal 98-108 [facility] Comment on above: Order Comment: [facility] has implemented the eGFR calculation approach that does not have a coefficient for race that conforms to the NKF-ASN Task Force Recommendations. Performed By: #### 4 6449 ####[facility] [address] [place], [place] [address] Milton iHnojosa M.D. [id number] Creatinine [Mass/Vol] 3.52 mg/dL High 0.60-1.20 [facility] Comment on above: Order Comment: [facility] has implemented the eGFR calculation approach that does not have a coefficient for race that conforms to the NKF-ASN Task Force Recommendations. Performed By: #### 4 6449 ####[facility] [address] [place], [place] [address] Milton Hinojosa M.D. [id number] EGFR 13 mL/min/1.73 m2 Low >=60 [facility] Comment on above: Order Comment: [facility] has implemented the eGFR calculation approach that does not have a coefficient for race that conforms to the NKF-ASN Task Force Recommendations. Result Comment: Lalita mated GFR was calculated using the 2020 CKD-EPI creatinine equation. Performed By: #### 4 6449 ####[facility] [address] [place] [address] Milton Hinojosa M.D. [id number] Glucose [Mass/Vol] 108 mg/dL High 65-99 [place] Comment on above: Order Comment: [facility] has implemented the eGFR calculation approach that does not have a coefficient for race that conforms to the NKF-ASN Task Force Recommendations. Performed By: #### 4 6449 ####[facility] [address] [place] [address] Milton Hinojosa M.D. [id number] HCO3 (Bld) [Moles/Vol] 25 mmol/L Normal 21-32 [facility] Comment on above: Order Comment: [facility] has implemented the eGFR calculation approach that does not have a coefficient for race that conforms to the NKF-ASN Task Force Recommendations. Performed By: #### 4 6449 ####[facility] [address] [place] [address] Milton Hinojosa M.D. [id number] Phosphate [Mass/Vol] 3.6 mg/dL Normal 2.8-4.1 [facility] Comment on above: Order Comment: [facility] has implemented the eGFR calculation approach that does not have a coefficient for race that conforms to the NKF-ASN Task Force Recommendations. Performed By: #### 4 6449 ####[facility] [address] [place] [address] Milton Hinojosa M.D. [id number] Potassium [Moles/Vol] 4.2 mmol/L Normal 3.5-5.1 [facility] Comment on above: Order Comment: [facility] has implemented the eGFR calculation approach that does not have a coefficient for race that conforms to the NKF-ASN Task Force Recommendations. Performed By: #### 4 6449 ####[facility] [address] [place] [address] Milton Hinojosa M.D. [id number] Sodium [Moles/Vol] 140 mmol/L Normal 135-145 [place] Comment on above: Order Comment: [facility] has implemented the eGFR calculation approach that does not have a coefficient for race that conforms to the NKF-ASN Task Force Recommendations. Performed By: #### 4 6449 ####[facility] [address] [place] [address] Milton Hinojosa M.D. [id number] Urea nitrogen [Mass/Vol] 24 mg/dL Normal 8-25 [facility] Comment on above: Order Comment: [facility] has implemented the eGFR calculation approach that does not have a coefficient for race that conforms to the NKF-ASN Task Force Recommendations. Performed By: #### 4 6449 ####[facility] [place], [place] [address] Milton Hinojosa M.D. [id number] Urea nitrogen/Creatinine [Mass ratio] 6.8 mg/mg Low 10.0-20.0 [facility] Comment on above: Order Comment: [facility] has implemented the eGFR calculation approach that does not have a coefficient for race that conforms to the NKF-ASN Task Force Recommendations. Performed By: #### 4 6449 ####[facility] [place], [place] [address] Milton Hinojosa M.D. [id number] Renal function 2000 panelon 07-08-2025 Albumin [Mass/Vol] 2.6 g/dL Low 3.2 - 5.2 g/dL [facility] Anion gap [Moles/Vol] 17 mmol/L 10 - 2 0 mmol/L [facility] Calcium [Mass/Vol] 8.1 mg/dL Low 8.4 - 10. 2 mg/dL [facility] Chloride [Moles/Vol] 102 mmol/L 98 - 10 8 mmol/L [facility] Creatinine [Mass/Vol] 3.52 mg/dL High 0.60 - 1.20 mg/dL [facility] GFR/1.73 sq M.predicted CKD-EPI (S/P/Bld) [Vol rate/Area] 13 Low - PINF [facility] Glucose [Mass/Vol] 108 mg/dL High 65 - 99 mg/dL [facility] HCO3 [Moles/Vol] 25 mmol/L 21 - 32 mmol/L [facility] Interpretation and review of laboratory results Abnormal [facility] Phosphate [Mass/Vol] 3.6 mg/dL 2.8 - 4 .1 mg/dL [facility] Potassium [Moles/Vol] 4.2 mmol/L 3.5 - 5.1 mmol/L [facility] Sodium [Moles/Vol] 140 mmol/L 135 - 145 mmol/L [facility] Urea nitrogen [Mass/Vol] 24 mg/dL 8 - 25 mg/dL [facility] Urea nitrogen/Creatinine [Mass ratio] 6.8 mg/mg Low 10.0 - 20.0 [facility] APTT HEPARIN COVERAGEon 06-16 aPTT Coag (Bld) [Time] [address] Comment on above: Order Comment: Thera peutic range for APTT's is 68 - 104 seconds Result Comment: Resu lts checked. Performed By: #### 4 6848 ####[facility] [address] [place] [address] Milton Hinojosa M.D. [id number] aPTT Coag (Bld) [Time] [address] Comment on above: Order Comment: Thera peutic range for APTT's is 68 - 104 seconds Performed By: #### 4 6848 ####[facility] [address] [place] [address] Milton Hinojosa M.D. [id number] APTT Heparin CoverageOrdered By: Cathryn Li on 07-07-2025 aPTT Coag (Bld) [Time] 102 s [facility] Interpretation and review of laboratory results Abnormal [facility] APTT Heparin Coverageon 06-16 aPTT Coag (Bld) [Time] 63 s [facility] Interpretation and review of laboratory results Abnormal [facility] BLOOD CULTURE AEROBIC/ANAERO BICon 07-07-2025 BLOOD CULTURE AEROBIC/ANAEROBIC BLOOD CULTURE No Growth after 5 days Normal [facility] Comment on above: Performed By: #### 4 4014 ####[facility] [address] [place] [address] Milton Hinojosa M.D. [id number] BLOOD CULTURE AEROBIC/ANAEROBIC BLOOD CULTURE No Growth after 5 days Normal [facility] Comment on above: Performed By: #### 4 4014 ####[facility] [address] [place] [address] Milton Hinojosa M.D. [id number] CALCIUM, IONIZEDon CALCIUM IONIZED 4.6 mg/dL Normal 4.5-5.3 [facility] Comment on above: Performed By: #### 4 5190 ####[facility] [address] [place], [place] [address] Milton Hinojosa M.D. [id number] CBCon 07-07-2025 AUTO NRBC 0.0 % Normal [facility] Comment on above: Performed By: #### 4 [id number] ####[facility] [address] [place], [place] [address] Milton Hinojosa M.D. [id number] AUTO NRBC ABS COUNT 0.00 K/mcL Normal 0.00-0.00 [facility] Comment on above: Performed By: #### 4 [id number] ####[facility] [address] [place] [address] Milton Hinojosa M.D. [id number] Erythrocyte distribution width (RBC) [Ratio] 16.4 % High 11.6-14.8 [facility] Comment on above: Performed By: #### 4 [id number] ####[facility] [address] [place], [place] [address] Milton Hinojosa M.D. [id number] Hematocrit (Bld) [Volume fraction] 31.1 % Low 36.0-46.0 [facility] Comment on above: Performed By: #### 4 [id number] ####[facility] [address] [place], [place] [address] Milton Hinojosa M.D. [id number] Hemoglobin (Bld) [Mass/Vol] 10.0 g/dL Low 12.0-16.0 [facility] Comment on above: Performed By: #### 4 [id number] ####[facility] [address] [place], [place] [address] Milton Hinojosa M.D. [id number] MCH (RBC) [Entitic mass] 28.7 pg Normal 26.0-34.0 [facility] Comment on above: Performed By: #### 4 4918 ####[facility] [address] [place] [address] Milton Hinojosa M.D. [id number] MCV (RBC) [Entitic vol] 89.1 fL Normal 80.0-100.0 [facility] Comment on above: Performed By: #### 4 [id number] ####[facility] [address] [place] [address] Milton Hinojosa M.D. [id number] MEAN CORPUSCULAR HEMOGLOBIN CONC 32.2 g/dL Normal 31.0-37.0 [facility] Comment on above: Performed By: #### 4 [id number] ####[facility] [address] [place] [address] Milton Hinojosa M.D. [id number] Platelet mean volume (Bld) [Entitic vol] 10.0 fL Normal 9.4-12.4 [facility] Comment on above: Performed By: #### 4 [id number] ####[facility] [address] [place], [place] [address] Milton Hinojosa M.D. [id number] Platelets (Bld) [#/Vol] 184 10*3/uL Normal 150-400 [facility] Comment on above: Performed By: #### 4 [id number] ####[facility] [address] [place], [place] [address] Milton Hinojosa M.D. [id number] RBC (Bld) [#/Vol] 3.49 10*6/uL Low 4.00-5.20 [facility] Comment on above: Performed By: #### 4 [id number] ####[facility] [address] [place], [place] [address] Milton Hinojosa M.D. [id number] WBC (Bld) [#/Vol] 10.56 10*3/uL Normal 4.50-11.00 [facility] Comment on above: Performed By: #### 4 [id number] ####[facility] [address] [place] [address] Milton Hinojosa M.D. [id number] CBC panel Auto (Bld)on 07-07 Erythrocyte distribution width (RBC) [Entitic vol] 16.4 % High 11.6 - 14.8 % [facility] Hematocrit (Bld) [Volume fraction] 31.1 % Low 36.0 - 46.0 % [facility] Hemoglobin (Bld) [Mass/Vol] 10 g/dL Low 12.0 - 16.0 g/dL [facility] Interpretation and review of laboratory results Abnormal [facility] MCH (RBC) [Entitic mass] 28.7 pg 26.0 - 34.0 pg [facility] MCHC (RBC) [Mass/Vol] 32.2 g/dL 31.0 - 37.0 g/dL [facility] MCV (RBC) [Entitic vol] 89.1 fL 80.0 - 100.0 fL [facility] Nucleated RBC (Bld) [#/Vol] 0 10*3/uL [facility] Nucleated RBC/100 WBC (Bld) [Ratio] 0 % [facility] Platelet mean volume (Bld) [Entitic vol] 10 fL 9.4 - 12.4 fL [facility] Platelets (Bld) [#/Vol] 184 10*3/uL [facility] RBC (Bld) [#/Vol] 3.49 10*6/uL Low [facility] ealth WBC (Bld) [#/Vol] 10.56 10*3/uL [facility] Calcium, Ionizedon Calcium.ionized [Mass/Vol] 4.6 mg/dL 4.5 - 5.3 mg/dL [facility] Calcium.ionized [Mass/Vol]on 07-07-2025 Interpretation and review of laboratory results Normal [facility] Glucose (Bld) [Mass/Vol]on 0 07-07-2025 Glucose [Mass/Vol] 122 mg/dL High 65 - 99 mg/dL [facility] Interpretation and review of laboratory results Abnormal [facility] Glucose [Mass/Vol] 76 mg/dL 65 - 99 mg/dL [facility] Interpretation and review of laboratory results Normal [facility] Glucose [Mass/Vol] 102 mg/dL High 65 - 99 mg/dL [facility] Interpretation and review of laboratory results Abnormal [facility] Glucose [Mass/Vol] 92 mg/dL 65 - 99 mg/dL [facility] Interpretation and review of laboratory results Normal [facility] MAGNESIUM LEVELon 07-07-2025 Magnesium [Mass/Vol] 2.2 mg/dL Normal 1.6-2.4 [facility] Comment on above: Performed By: #### 4 6109 ####[facility] [address] [place] [address] Milton Hinojosa M.D. [id number] MR Brain WO contraston 07-07 GE RIS GE RIS [facility] Radiology Study observation (narrative) [facility] MR Lumbar spine WO contrasto n 07-07-2025 Radiology Study observation (narrative) [facility] Magnesiumon 07-07-2025 Magnesium [Mass/Vol] 2.2 mg/dL 1.6 - 2 .4 mg/dL [facility] Magnesium [Mass/Vol]on 07-07 Interpretation and review of laboratory results Normal [facility] No Panel Informationon 07-07 [facility] POC GLUCOSE - RALSon 025 Glucose [Mass/Vol] 122 mg/dL High 65-99 [place] Comment on above: Performed By: #### 4 0949 ####[facility] [address] [place] [address] [id number] RM[facility] Glucose [Mass/Vol] 76 mg/dL Normal 65-99 [place] Comment on above: Performed By: #### 4 2844 ####[facility] [address] [place] [address] [id number] RM[facility] Glucose [Mass/Vol] 102 mg/dL High 65-99 [place] Comment on above: Performed By: #### 4 5020 ####[facility] [address] [place] [address] [id number] RM[facility]OC Glucose [Mass/Vol] 92 mg/dL Normal 65-99 [place] Comment on above: Performed By: #### 4 3463 ####[facility] [address] [place] [address] [id number] RMHPOC RENAL FUNCTION PANELon 07-07 Albumin [Mass/Vol] 2.8 g/dL Low 3.2-5.2 [place] Comment on above: Order Comment: [facility] has implemented the eGFR calculation approach that does not have a coefficient for race that conforms to the NKF-ASN Task Force Recommendations. Performed By: #### 4 6449 ####[facility] [address] [place] [address] Milton Hinojosa M.D. [id number] Anion gap [Moles/Vol] 16 mmol/L Normal 10-20 [facility] Comment on above: Order Comment: [facility] has implemented the eGFR calculation approach that does not have a coefficient for race that conforms to the NKF-ASN Task Force Recommendations. Performed By: #### 4 6449 ####[facility] [address] [place], [place] [address] Milton Hinojosa M.D. [id number] Calcium [Mass/Vol] 8.3 mg/dL Low 8.4-10.2 [place] Comment on above: Order Comment: [facility] has implemented the eGFR calculation approach that does not have a coefficient for race that conforms to the NKF-ASN Task Force Recommendations. Performed By: #### 4 6449 ####[facility] [address] [place] [address] Milton Hinojosa M.D. [id number] Chloride [Moles/Vol] 104 mmol/L Normal 98-108 [facility] Comment on above: Order Comment: [facility] has implemented the eGFR calculation approach that does not have a coefficient for race that conforms to the NKF-ASN Task Force Recommendations. Performed By: #### 4 6449 ####[facility] [address] [place] [address] Milton Hinojosa M.D. [id number] Creatinine [Mass/Vol] 2.60 mg/dL High 0.60-1.20 [facility] Comment on above: Order Comment: [facility] has implemented the eGFR calculation approach that does not have a coefficient for race that conforms to the NKF-ASN Task Force Recommendations. Performed By: #### 4 6449 ####[facility] [address] [place] [address] Milton Hinojosa M.D. [id number] EGFR 19 mL/min/1.73 m2 Low >=60 [facility] Comment on above: Order Comment: [facility] has implemented the eGFR calculation approach that does not have a coefficient for race that conforms to the NKF-ASN Task Force Recommendations. Result Comment: Lalita mated GFR was calculated using the 2020 CKD-EPI creatinine equation. Performed By: #### 4 6449 ####[facility] [address] [place] [address] Milton Hinojosa M.D. [id number] Glucose [Mass/Vol] 89 mg/dL Normal 65-99 [place] Comment on above: Order Comment: [facility] has implemented the eGFR calculation approach that does not have a coefficient for race that conforms to the NKF-ASN Task Force Recommendations. Performed By: #### 4 6449 ####[facility] [address] [place] [address] Milton Hinojosa M.D. [id number] HCO3 (Bld) [Moles/Vol] 25 mmol/L Normal 21-32 [facility] Comment on above: Order Comment: [facility] has implemented the eGFR calculation approach that does not have a coefficient for race that conforms to the NKF-ASN Task Force Recommendations. Performed By: #### 4 6449 ####[facility] [address] [place] [address] Milton Hinojosa M.D. [id number] Phosphate [Mass/Vol] 2.6 mg/dL Low 2.8-4.1 [facility] Comment on above: Order Comment: [facility] has implemented the eGFR calculation approach that does not have a coefficient for race that conforms to the NKF-ASN Task Force Recommendations. Performed By: #### 4 6449 ####[facility] [address] [place] [address] Milton Hinojosa M.D. [id number] Potassium [Moles/Vol] 3.8 mmol/L Normal 3.5-5.1 [facility] Comment on above: Order Comment: [facility] has implemented the eGFR calculation approach that does not have a coefficient for race that conforms to the NKF-ASN Task Force Recommendations. Performed By: #### 4 6449 ####[facility] [address] [place] [address] Milton Hinojosa M.D. [id number] Sodium [Moles/Vol] 141 mmol/L Normal 135-145 [place] Comment on above: Order Comment: [facility] has implemented the eGFR calculation approach that does not have a coefficient for race that conforms to the NKF-ASN Task Force Recommendations. Performed By: #### 4 6449 ####[facility] [address] [place] [address] Milton Hinojosa M.D. [id number] Urea nitrogen [Mass/Vol] 16 mg/dL Normal 8-25 [facility] Comment on above: Order Comment: [facility] has implemented the eGFR calculation approach that does not have a coefficient for race that conforms to the NKF-ASN Task Force Recommendations. Performed By: #### 4 6449 ####[facility] [address] [place] [address] Milton Hinojosa M.D. [id number] Urea nitrogen/Creatinine [Mass ratio] 6.2 mg/mg Low 10.0-20.0 [facility] Comment on above: Order Comment: [facility] has implemented the eGFR calculation approach that does not have a coefficient for race that conforms to the NKF-ASN Task Force Recommendations. Performed By: #### 4 6449 ####[facility] [address] [place] [address] Milton Hinojosa M.D. [id number] Renal function 2000 panelon 07-07-2025 Albumin [Mass/Vol] 2.8 g/dL Low 3.2 - 5.2 g/dL [facility] Anion gap [Moles/Vol] 16 mmol/L 10 - 2 0 mmol/L [facility] Calcium [Mass/Vol] 8.3 mg/dL Low 8.4 - 10. 2 mg/dL [facility] Chloride [Moles/Vol] 104 mmol/L 98 - 10 8 mmol/L [facility] Creatinine [Mass/Vol] 2.6 mg/dL High 0.60 - 1.20 mg/dL [facility] GFR/1.73 sq M.predicted CKD-EPI (S/P/Bld) [Vol rate/Area] 19 Low - PINF [facility] [place] Glucose [Mass/Vol] 89 mg/dL 65 - 99 mg/dL [facility] HCO3 [Moles/Vol] 25 mmol/L 21 - 32 mmol/L [facility] Interpretation and review of laboratory results Abnormal [facility] Phosphate [Mass/Vol] 2.6 mg/dL Low 2.8 - 4 .1 mg/dL [facility] Potassium [Moles/Vol] 3.8 mmol/L 3.5 - 5.1 mmol/L [facility] Sodium [Moles/Vol] 141 mmol/L 135 - 145 mmol/L [facility] [place] Urea nitrogen [Mass/Vol] 16 mg/dL 8 - 25 mg/dL [facility] [place] Urea nitrogen/Creatinine [Mass ratio] 6.2 mg/mg Low 10.0 - 20.0 [facility] APTT HEPARIN COVERAGEon 06-16 aPTT Coag (Bld) [Time] 87 s High 23-34 [facility] Comment on above: Order Comment: Thera peutic range for APTT's is 68 - 104 seconds Performed By: #### 4 [id number] ####[facility] [address] [place] [address] Milton Hinojosa M.D. [id number] APTT Heparin Coverageon 06-16 aPTT Coag (Bld) [Time] 87 s High [facility] [place] Interpretation and review of laboratory results Abnormal [facility] CALCIUM, IONIZEDon CALCIUM IONIZED 4.8 mg/dL Normal 4.5-5.3 [facility] Comment on above: Performed By: #### 4 5190 ####[facility] [address] [place] [address] Milton Hinojosa M.D. [id number] CBCon 07-06-2025 AUTO NRBC 0.0 % Normal [facility] Comment on above: Performed By: #### 4 [id number] ####[facility] [address] [place], [place] [address] Milton Hinojosa M.D. [id number] AUTO NRBC ABS COUNT 0.00 K/mcL Normal 0.00-0.00 [facility] Comment on above: Performed By: #### 4 [id number] ####[facility] [address] [place] [address] Milton Hinojosa M.D. [id number] Erythrocyte distribution width (RBC) [Ratio] 16.5 % High 11.6-14.8 [facility] Comment on above: Performed By: #### 4 [id number] ####[facility] [address] [place], [place] [address] Milton Hinojosa M.D. [id number] Hematocrit (Bld) [Volume fraction] 31.5 % Low 36.0-46.0 [facility] Comment on above: Performed By: #### 4 [id number] ####[facility] [address] [place] [address] Milton Hinojosa M.D. [id number] Hemoglobin (Bld) [Mass/Vol] 9.7 g/dL Low 12.0-16.0 [facility] Comment on above: Performed By: #### 4 [id number] ####[facility] [address] [place], [place] [address] Milton Hinojosa M.D. [id number] MCH (RBC) [Entitic mass] 28.4 pg Normal 26.0-34.0 [facility] Comment on above: Performed By: #### 4 [id number] ####[facility] [address] [place], [place] [address] Milton Hinojosa M.D. [id number] MCV (RBC) [Entitic vol] 92.4 fL Normal 80.0-100.0 [facility] Comment on above: Performed By: #### 4 [id number] ####[facility] [address] [place] [address] Milton Hinojosa M.D. [id number] MEAN CORPUSCULAR HEMOGLOBIN CONC 30.8 g/dL Low 31.0-37.0 [facility] Comment on above: Performed By: #### 4 [id number] ####[facility] [address] [place] [address] Milton Hinojosa M.D. [id number] Platelet mean volume (Bld) [Entitic vol] 9.8 fL Normal 9.4-12.4 [facility] Comment on above: Performed By: #### 4 [id number] ####[facility] [address] [place], [place] [address] Milton Hinojosa M.D. [id number] Platelets (Bld) [#/Vol] 208 10*3/uL Normal 150-400 [facility] Comment on above: Performed By: #### 4 [id number] ####[facility] [address] [place], [place] [address] Milton Hinojosa M.D. [id number] RBC (Bld) [#/Vol] 3.41 10*6/uL Low 4.00-5.20 [facility] Comment on above: Performed By: #### 4 [id number] ####[facility] [address] [place] [address] Milton Hinojosa M.D. [id number] WBC (Bld) [#/Vol] 9.94 10*3/uL Normal 4.50-11.00 [facility] Comment on above: Performed By: #### 4 [id number] ####[facility] [address] [place], [place] [address] Milton Hinojosa M.D. [id number] CBC panel Auto (Bld)on 07-06 Erythrocyte distribution width (RBC) [Entitic vol] 16.5 % High 11.6 - 14.8 % [facility] Hematocrit (Bld) [Volume fraction] 31.5 % Low 36.0 - 46.0 % [facility] Hemoglobin (Bld) [Mass/Vol] 9.7 g/dL Low 12.0 - 16.0 g/dL [facility] Interpretation and review of laboratory results Abnormal [facility] MCH (RBC) [Entitic mass] 28.4 pg 26.0 - 34.0 pg [facility] MCHC (RBC) [Mass/Vol] 30.8 g/dL Low 31.0 - 37.0 g/dL [facility] MCV (RBC) [Entitic vol] 92.4 fL 80.0 - 100.0 fL [facility] Nucleated RBC (Bld) [#/Vol] 0 10*3/uL [facility] Nucleated RBC/100 WBC (Bld) [Ratio] 0 % [facility] Platelet mean volume (Bld) [Entitic vol] 9.8 fL 9.4 - 12.4 fL [facility] Platelets (Bld) [#/Vol] 208 10*3/uL [facility] RBC (Bld) [#/Vol] 3.41 10*6/uL Low [facility] ealth WBC (Bld) [#/Vol] 9.94 10*3/uL [facility] Calcium, IonizedOrdered By: Malika Landa on 07-06-2025 Calcium.ionized [Mass/Vol] 4.8 mg/dL 4.5 - 5.3 mg/dL [facility] Calcium.ionized [Mass/Vol]Or dered By: Malika Landa on 07-06-2025 Interpretation and review of laboratory results Normal [facility] Glucose (Bld) [Mass/Vol]on 0 07-06-2025 Glucose [Mass/Vol] 109 mg/dL High 65 - 99 mg/dL [facility] Interpretation and review of laboratory results Abnormal [facility] Glucose [Mass/Vol] 85 mg/dL 65 - 99 mg/dL [facility] Interpretation and review of laboratory results Normal [facility] Glucose [Mass/Vol] 117 mg/dL High 65 - 99 mg/dL [facility] Interpretation and review of laboratory results Abnormal [facility] Glucose [Mass/Vol] 111 mg/dL High 65 - 99 mg/dL [facility] Interpretation and review of laboratory results Abnormal [facility] MAGNESIUM LEVELon 07-06-2025 Magnesium [Mass/Vol] 2.4 mg/dL Normal 1.6-2.4 [facility] Comment on above: Performed By: #### 4 6109 ####[facility] [address] [place] [address] Milton Hinojosa M.D. [id number] MR BRAIN WITHOUT CONTRASTon 07-06-2025 MR BRAIN WITHOUT CONTRAST Normal [facility] Comment on above: Order Comment: Injur y/Trauma or Illness?:Illness/OtherHow long have you had these symptoms (acute/chronic)?:AcuteReason for exam?:abnormal head ctType of Exam?:InitialAdditional signs and symptoms?:no MR LUMBAR SPINE WITHOUT CONT RASTon 07-06-2025 MR LUMBAR SPINE WITHOUT CONTRAST Normal [facility] Comment on above: Order Comment: Injur y/Trauma or Illness?:Illness/OtherHow long have you had these symptoms (acute/chronic)?:AcuteReason for exam?:Low back pain, infection suspected, positive xray/CTType of Exam?:InitialAdditional signs and symptoms?:no Magnesiumon 07-06-2025 Magnesium [Mass/Vol] 2.4 mg/dL 1.6 - 2 .4 mg/dL [facility] Magnesium [Mass/Vol]on 07-06 Interpretation and review of laboratory results Normal [facility] POC GL[facility]CO[facility] 025 Glucose [Mass/Vol] 109 mg/dL High 65-99 [place] Comment on above: Performed By: #### 4 [id number] ####[facility] [address] [place] [address] [id number] [facility] Glucose [Mass/Vol] 85 mg/dL Normal 65-99 [place] Comment on above: Performed By: #### 4 6932 ####[facility] [address] [place] [address] [id number] [facility] Glucose [Mass/Vol] 117 mg/dL High 65-99 [place] Comment on above: Performed By: #### 4 [id number] ####[facility] [address] [place] [address] [id number] [facility] Glucose [Mass/Vol] 111 mg/dL High 65- [place] Comment on above: Performed By: #### 4 [id number] ####[facility] [address] [place] [address] [id number] [facility] RENAL FUNCTION PANELon 07-06 Albumin [Mass/Vol] 2.7 g/dL Low 3.2-5.2 [place] Comment on above: Order Comment: [facility] has implemented the eGFR calculation approach that does not have a coefficient for race that conforms to the NKF-ASN Task Force Recommendations. Performed By: #### 4 6449 ####[facility] [address] [place] [address] Milton Hinojosa M.D. [id number] Anion gap [Moles/Vol] 15 mmol/L Normal 10-20 [facility] Comment on above: Order Comment: [facility] has implemented the eGFR calculation approach that does not have a coefficient for race that conforms to the NKF-ASN Task Force Recommendations. Performed By: #### 4 6449 ####[facility] [address] [place], [place] [address] Milton Hinojosa M.D. [id number] Calcium [Mass/Vol] 8.1 mg/dL Low 8.4-10.2 [place] Comment on above: Order Comment: [facility] has implemented the eGFR calculation approach that does not have a coefficient for race that conforms to the NKF-ASN Task Force Recommendations. Performed By: #### 4 6449 ####[facility] [address] [place] [address] Milton Hinojosa M.D. [id number] Chloride [Moles/Vol] 109 mmol/L High 98-108 [facility] Comment on above: Order Comment: [facility] has implemented the eGFR calculation approach that does not have a coefficient for race that conforms to the NKF-ASN Task Force Recommendations. Performed By: #### 4 6449 ####[facility] [address] [place] [address] Milton Hinojosa M.D. [id number] Creatinine [Mass/Vol] 2.96 mg/dL High 0.60-1.20 [facility] Comment on above: Order Comment: [facility] has implemented the eGFR calculation approach that does not have a coefficient for race that conforms to the NKF-ASN Task Force Recommendations. Performed By: #### 4 6449 ####[facility] [address] [place] [address] Milton Hinojosa M.D. [id number] EGFR 16 mL/min/1.73 m2 Low >=60 [facility] Comment on above: Order Comment: [facility] has implemented the eGFR calculation approach that does not have a coefficient for race that conforms to the NKF-ASN Task Force Recommendations. Result Comment: Lalita mated GFR was calculated using the 2020 CKD-EPI creatinine equation. Performed By: #### 4 6449 ####[facility] [address] [place] [address] Milton Hinojosa M.D. [id number] Glucose [Mass/Vol] 107 mg/dL High 65-99 [place] Comment on above: Order Comment: [facility] has implemented the eGFR calculation approach that does not have a coefficient for race that conforms to the NKF-ASN Task Force Recommendations. Performed By: #### 4 6449 ####[facility] [address] [place], [place] [address] Milton Hinojosa M.D. [id number] HCO3 (Bld) [Moles/Vol] 28 mmol/L Normal 21-32 [facility] Comment on above: Order Comment: [facility] has implemented the eGFR calculation approach that does not have a coefficient for race that conforms to the NKF-ASN Task Force Recommendations. Performed By: #### 4 6449 ####[facility] [address] [place], [place] [address] Milton Hinojosa M.D. [id number] Phosphate [Mass/Vol] 3.8 mg/dL Normal 2.8-4.1 [facility] Comment on above: Order Comment: [facility] has implemented the eGFR calculation approach that does not have a coefficient for race that conforms to the NKF-ASN Task Force Recommendations. Performed By: #### 4 6449 ####[facility] [address] [place], [place] [address] Milton Hinojosa M.D. [id number] Potassium [Moles/Vol] 4.4 mmol/L Normal 3.5-5.1 [facility] Comment on above: Order Comment: [facility] has implemented the eGFR calculation approach that does not have a coefficient for race that conforms to the NKF-ASN Task Force Recommendations. Performed By: #### 4 6449 ####[facility] [address] [place], [place] [address] Milton Hinojosa M.D. [id number] Sodium [Moles/Vol] 148 mmol/L High 135-145 [place] Comment on above: Order Comment: [facility] has implemented the eGFR calculation approach that does not have a coefficient for race that conforms to the NKF-ASN Task Force Recommendations. Performed By: #### 4 6449 ####[facility] [address] [place], [place] [address] Milton Hinojosa M.D. [id number] Urea nitrogen [Mass/Vol] 21 mg/dL Normal 8-25 [facility] Comment on above: Order Comment: [facility] has implemented the eGFR calculation approach that does not have a coefficient for race that conforms to the NKF-ASN Task Force Recommendations. Performed By: #### 4 6449 ####[facility] [address] [place] [address] Milton Hinojosa M.D. [id number] Urea nitrogen/Creatinine [Mass ratio] 7.1 mg/mg Low 10.0-20.0 [facility] Comment on above: Order Comment: [facility] has implemented the eGFR calculation approach that does not have a coefficient for race that conforms to the NKF-ASN Task Force Recommendations. Performed By: #### 4 6449 ####[facility] [address] [place] [address] Milton Hinojosa M.D. [id number] Renal function 2000 panelon 07-06-2025 Albumin [Mass/Vol] 2.7 g/dL Low 3.2 - 5.2 g/dL [facility] Anion gap [Moles/Vol] 15 mmol/L 10 - 2 0 mmol/L [facility] Calcium [Mass/Vol] 8.1 mg/dL Low 8.4 - 10. 2 mg/dL [facility] Chloride [Moles/Vol] 109 mmol/L High 98 - 10 8 mmol/L [facility] Creatinine [Mass/Vol] 2.96 mg/dL High 0.60 - 1.20 mg/dL [facility] GFR/1.73 sq M.predicted CKD-EPI (S/P/Bld) [Vol rate/Area] 16 Low - PINF [facility] Glucose [Mass/Vol] 107 mg/dL High 65 - 99 mg/dL [facility] HCO3 [Moles/Vol] 28 mmol/L 21 - 32 mmol/L [facility] Interpretation and review of laboratory results Abnormal [facility] Phosphate [Mass/Vol] 3.8 mg/dL 2.8 - 4 .1 mg/dL [facility] Potassium [Moles/Vol] 4.4 mmol/L 3.5 - 5.1 mmol/L [facility] Sodium [Moles/Vol] 148 mmol/L High 135 - 145 mmol/L [facility] Urea nitrogen [Mass/Vol] 21 mg/dL 8 - 25 mg/dL [facility] Urea nitrogen/Creatinine [Mass ratio] 7.1 mg/mg Low 10.0 - 20.0 [facility] APTT HEPARIN COVERAGEon 06-16 aPTT Coag (Bld) [Time] [address] Comment on above: Order Comment: Thera peutic range for APTT's is 68 - 104 seconds Performed By: #### 4 [id number] ####[facility] [address] [place], [place] [address] Milton Hinojosa M.D. [id number] aPTT Coag (Bld) [Time] [address] Comment on above: Order Comment: Thera peutic range for APTT's is 68 - 104 secondsResults checked. Performed By: #### 4 [id number] ####[facility] [address] [place] [address] Milton Hinojosa M.D. [id number] aPTT Coag (Bld) [Time] [address] Comment on above: Order Comment: Thera peutic range for APTT's is 68 - 104 seconds Result Comment: Resu lts checked. Performed By: #### 4 [id number] ####[facility] [address] [place], [place] [address] Milton Hinojosa M.D. [id number] APTT Heparin Coverageon 06-16 aPTT Coag (Bld) [Time] 89 s High [facility] Interpretation and review of laboratory results Abnormal [facility] aPTT Coag (Bld) [Time] 63 s High [facility] Interpretation and review of laboratory results Abnormal [facility] APTT Heparin CoverageOrdered By: Rony Farfan on 07-05-2025 aPTT Coag (Bld) [Time] 98 s High [facility] Interpretation and review of laboratory results Abnormal [facility] Bacteria identified Cx Nom ( Bld)on 07-05-2025 Gram Stain Result Positive Abnormal [facility] Interpretation and review of laboratory results Abnormal [facility] Blood Culture #1on 5 Bacteria identified Cx Nom (Bld) Staphylococcus aureus Abnormal [facility] CALCIUM, IONIZEDon 5 CALCIUM IONIZED 4.8 mg/dL Normal 4.5-5.3 [facility] Comment on above: Performed By: #### 4 5190 ####[facility] [address] [place] [address] Milton Hinojosa M.D. [id number] CBCon 07-05-2025 AUTO NRBC 0.0 % Normal [facility] Comment on above: Performed By: #### 4 [id number] ####[facility] [address] [place] [address] Milton Hinojosa M.D. [id number] AUTO NRBC ABS COUNT 0.00 K/mcL Normal 0.00-0.00 [facility] Comment on above: Performed By: #### 4 [id number] ####[facility] [address] [place], [place] [address] Milton Hinojosa M.D. [id number] Erythrocyte distribution width (RBC) [Ratio] 16.2 % High 11.6-14.8 [facility] Comment on above: Performed By: #### 4 [id number] ####[facility] [address] [place], [place] [address] Milton Hinojosa M.D. [id number] Hematocrit (Bld) [Volume fraction] 33.1 % Low 36.0-46.0 [facility] Comment on above: Performed By: #### 4 [id number] ####[facility] [address] [place], [place] [address] Milton Hinojosa M.D. [id number] Hemoglobin (Bld) [Mass/Vol] 10.3 g/dL Low 12.0-16.0 [facility] Comment on above: Performed By: #### 4 [id number] ####[facility] [address] [place], [place] [address] Milton Hinojosa M.D. [id number] MCH (RBC) [Entitic mass] 28.4 pg Normal 26.0-34.0 [facility] Comment on above: Performed By: #### 4 [id number] ####[facility] [address] [place] [address] Milton Hinojosa M.D. [id number] MCV (RBC) [Entitic vol] 91.2 fL Normal 80.0-100.0 [facility] Comment on above: Performed By: #### 4 [id number] ####[facility] [address] [place] [address] Milton Hinojosa M.D. [id number] MEAN CORPUSCULAR HEMOGLOBIN CONC 31.1 g/dL Normal 31.0-37.0 [facility] Comment on above: Performed By: #### 4 [id number] ####[facility] [address] [place], [place] [address] Milton Hinojosa M.D. [id number] Platelet mean volume (Bld) [Entitic vol] 9.7 fL Normal 9.4-12.4 [facility] Comment on above: Performed By: #### 4 [id number] ####[facility] [address] [place] [address] Milton Hinojosa M.D. [id number] Platelets (Bld) [#/Vol] 210 10*3/uL Normal 150-400 [facility] Comment on above: Performed By: #### 4 [id number] ####[facility] [address] [place], [place] [address] Milton Hinojosa M.D. [id number] RBC (Bld) [#/Vol] 3.63 10*6/uL Low 4.00-5.20 [facility] Comment on above: Performed By: #### 4 [id number] ####[facility] [address] [place], [place] [address] Milton Hinojosa M.D. [id number] WBC (Bld) [#/Vol] 11.94 10*3/uL High 4.50-11.00 [facility] Comment on above: Performed By: #### 4 [id number] ####[facility] [address] [place] [address] Milton Hinojosa M.D. [id number] CBC panel Auto (Bld)on 07-05 Erythrocyte distribution width (RBC) [Entitic vol] 16.2 % High 11.6 - 14.8 % [facility] Hematocrit (Bld) [Volume fraction] 33.1 % Low 36.0 - 46.0 % [facility] Hemoglobin (Bld) [Mass/Vol] 10.3 g/dL Low 12.0 - 16.0 g/dL [facility] [place] Interpretation and review of laboratory results Abnormal [facility] MCH (RBC) [Entitic mass] 28.4 pg 26.0 - 34.0 pg [facility] MCHC (RBC) [Mass/Vol] 31.1 g/dL 31.0 - 37.0 g/dL [facility] [place] MCV (RBC) [Entitic vol] 91.2 fL 80.0 - 100.0 fL [facility] [place] Nucleated RBC (Bld) [#/Vol] 0 10*3/uL [facility] [place] Nucleated RBC/100 WBC (Bld) [Ratio] 0 % [facility] [place] Platelet mean volume (Bld) [Entitic vol] 9.7 fL 9.4 - 12.4 fL [facility] [place] Platelets (Bld) [#/Vol] 210 10*3/uL [facility] RBC (Bld) [#/Vol] 3.63 10*6/uL Low [facility]alth WBC (Bld) [#/Vol] 11.94 10*3/uL High [facility] CK [Catalytic activity/Vol]o n 07-05-2025 Interpretation and review of laboratory results Abnormal [facility] CONSULTon 07-05-2025 CONSULT Normal [facility] CPKon 07-05-2025 CPK 32 U/L Low 40-170 [facility] Comment on above: Performed By: #### 4 [id number] ####[facility] [address] [place] [address] Milotn Hinojosa M.D. [id number] CPK NO MBon 07-05-2025 CK [Catalytic activity/Vol] 32 U/L Low 40 - 170 U/L [facility] [place] Calcium, IonizedOrdered By: Patricio Muñoz on 07-05-2025 Calcium.ionized [Mass/Vol] 4.8 mg/dL 4.5 - 5.3 mg/dL [facility] Calcium.ionized [Mass/Vol]Or dered By: Patricio Muñoz on 07-05-2025 Interpretation and review of laboratory results Normal [facility] Glucose (Bld) [Mass/Vol]on 0 07-05-2025 Glucose [Mass/Vol] 131 mg/dL High 65 - 99 mg/dL [facility] Interpretation and review of laboratory results Abnormal [facility] Glucose [Mass/Vol] 116 mg/dL High 65 - 99 mg/dL [facility] Interpretation and review of laboratory results Abnormal [facility] Glucose [Mass/Vol] 93 mg/dL 65 - 99 mg/dL [facility] Interpretation and review of laboratory results Normal [facility] HEPATIC FUNCTION PANELon ALP [Catalytic activity/Vol] 119 U/L Normal 40-150 [facility] [facility] Comment on above: Performed By: #### 4 [id number] ####[facility] [address] [place], [place] [address] Milton Hinojosa M.D. [id number] ALT [Catalytic activity/Vol] 23 U/L Normal 0-35 U/L [facility] Comment on above: Performed By: #### 4 5866 ####[facility] [address] [place] [address] Milton Hinojosa M.D. [id number] AST [Catalytic activity/Vol] 26 U/L Normal 0-35 U/L [facility] Comment on above: Performed By: #### 4 5866 ####[facility] [address] [place], [place] [address] Milton Hinojosa M.D. [id number] Bilirubin [Mass/Vol] 0.6 mg/dL Normal 0.0-1.3 [facility] Comment on above: Performed By: #### 4 5866 ####[facility] [address] [place], [place] [address] Milton Hinojosa M.D. [id number] Bilirubin.indirect [Mass/Vol] 0.4 mg/dL Normal 0.0-0.4 [facility] Comment on above: Performed By: #### 4 5866 ####[facility] [address] [place], [place] [address] Milton Hinojosa M.D. [id number] Protein [Mass/Vol] 6.0 g/dL Normal 6.0-8.0 [place] Comment on above: Performed By: #### 4 5866 ####[facility] [address] [place], [place] [address] Milton Hinojosa M.D. [id number] Hepatic function 2000 panelo n 07-05-2025 Albumin [Mass/Vol] 2.8 g/dL Low 3.2 - 5.2 g/dL [facility] ALP [Catalytic activity/Vol] 119 U/L 40 - 150 U/L [facility] ALT [Catalytic activity/Vol] 23 U/L 0 - 35 U/L [facility] AST [Catalytic activity/Vol] 26 U/L 0 - 35 U/L [facility] Bilirubin [Mass/Vol] 0.6 mg/dL 0.0 - 1 .3 mg/dL [facility] Bilirubin.conjugated [Mass/Vol] 0.4 mg/dL 0.0 - 0.4 mg/dL [facility] Interpretation and review of laboratory results Abnormal [facility] Protein [Mass/Vol] 6 g/dL 6.0 - 8.0 g/dL [facility] MAGNESIUM LEVELon 07-05-2025 Magnesium [Mass/Vol] 2.4 mg/dL Normal 1.6-2.4 [facility] Comment on above: Performed By: #### 4 6109 ####[facility] [address] [place] [address] Milton Hinojosa M.D. [id number] Magnesiumon 07-05-2025 Magnesium [Mass/Vol] 2.4 mg/dL 1.6 - 2 .4 mg/dL [facility] Magnesium [Mass/Vol]on 07-05 Interpretation and review of laboratory results Normal [facility] No Panel Informationon 07-05 [facility] POC GLUCOSE - RALSon 025 Glucose [Mass/Vol] 131 mg/dL High 65-99 [place] Comment on above: Performed By: #### 4 6932 ####[facility] [address] [place] [address] [id number] [facility] Glucose [Mass/Vol] 116 mg/dL High 65-99 [place] Comment on above: Performed By: #### 4 6932 ####[facility] [address] [place] [address] [id number] [facility] Glucose [Mass/Vol] 93 mg/dL Normal 65-99 [place] Comment on above: Performed By: #### 4 6932 ####[facility] [address] [place] [address] [id number] [facility] RENAL FUNCTION PANELon 07-05 Albumin [Mass/Vol] 2.8 g/dL Low 3.2-5.2 [place] Comment on above: Order Comment: [facility] has implemented the eGFR calculation approach that does not have a coefficient for race that conforms to the NKF-ASN Task Force Recommendations. Performed By: #### 4 6449 ####[facility] [address] [place] [address] Milton Hinojosa M.D. [id number] Performed By: #### 4 5866 ####[facility] [address] [place] [address] Milton Hinojosa M.D. [id number] Anion gap [Moles/Vol] 16 mmol/L Normal 10-20 [facility] Comment on above: Order Comment: [facility] has implemented the eGFR calculation approach that does not have a coefficient for race that conforms to the NKF-ASN Task Force Recommendations. Performed By: #### 4 6449 ####[facility] [address] [place], [place] [address] Milton Hinojosa M.D. [id number] Calcium [Mass/Vol] 8.8 mg/dL Normal 8.4-10.2 [place] Comment on above: Order Comment: [facility] has implemented the eGFR calculation approach that does not have a coefficient for race that conforms to the NKF-ASN Task Force Recommendations. Performed By: #### 4 6449 ####[facility] [address] [place], [place] [address] Milton Hinojosa M.D. [id number] Chloride [Moles/Vol] 105 mmol/L Normal 98-108 [facility] Comment on above: Order Comment: [facility] has implemented the eGFR calculation approach that does not have a coefficient for race that conforms to the NKF-ASN Task Force Recommendations. Performed By: #### 4 6449 ####[facility] [address] [place] [address] Milton Hinojosa M.D. [id number] Creatinine [Mass/Vol] 1.95 mg/dL High 0.60-1.20 [facility] Comment on above: Order Comment: [facility] has implemented the eGFR calculation approach that does not have a coefficient for race that conforms to the NKF-ASN Task Force Recommendations. Performed By: #### 4 6449 ####[facility] [address] [place], [place] [address] Milton Hinojosa M.D. [id number] EGFR 26 mL/min/1.73 m2 Low >=60 [facility] Comment on above: Order Comment: [facility] has implemented the eGFR calculation approach that does not have a coefficient for race that conforms to the NKF-ASN Task Force Recommendations. Result Comment: Lalita mated GFR was calculated using the 2020 CKD-EPI creatinine equation. Performed By: #### 4 6449 ####[facility] [address] [place], [place] [address] Milton Hinojosa M.D. [id number] Glucose [Mass/Vol] 108 mg/dL High 65-99 [place] Comment on above: Order Comment: [facility] has implemented the eGFR calculation approach that does not have a coefficient for race that conforms to the NKF-ASN Task Force Recommendations. Performed By: #### 4 6449 ####[facility] [address] [place], [place] [address] Milton Hinojosa M.D. [id number] HCO3 (Bld) [Moles/Vol] 27 mmol/L Normal 21-32 [facility] Comment on above: Order Comment: [facility] has implemented the eGFR calculation approach that does not have a coefficient for race that conforms to the NKF-ASN Task Force Recommendations. Performed By: #### 4 6449 ####[facility] [address] [place] [address] Milton Hinojosa M.D. [id number] Phosphate [Mass/Vol] 3.1 mg/dL Normal 2.8-4.1 [facility] Comment on above: Order Comment: [facility] has implemented the eGFR calculation approach that does not have a coefficient for race that conforms to the NKF-ASN Task Force Recommendations. Performed By: #### 4 6449 ####[facility] [address] [place] [address] Milton Hinojosa M.D. [id number] Potassium [Moles/Vol] 4.1 mmol/L Normal 3.5-5.1 [facility] Comment on above: Order Comment: [facility] has implemented the eGFR calculation approach that does not have a coefficient for race that conforms to the NKF-ASN Task Force Recommendations. Performed By: #### 4 6449 ####[facility] [address] [place] [address] Milton Hinojosa M.D. [id number] Sodium [Moles/Vol] 144 mmol/L Normal 135-145 [place] Comment on above: Order Comment: [facility] has implemented the eGFR calculation approach that does not have a coefficient for race that conforms to the NKF-ASN Task Force Recommendations. Performed By: #### 4 6449 ####[facility] [address] [place] [address] Milton Hinojosa M.D. [id number] Urea nitrogen [Mass/Vol] 14 mg/dL Normal 8-25 [facility] Comment on above: Order Comment: [facility] has implemented the eGFR calculation approach that does not have a coefficient for race that conforms to the NKF-ASN Task Force Recommendations. Performed By: #### 4 6449 ####[facility] [address] [place] [address] Milton Hinojosa M.D. [id number] Urea nitrogen/Creatinine [Mass ratio] 7.2 mg/mg Low 10.0-20.0 [facility] Comment on above: Order Comment: [facility] has implemented the eGFR calculation approach that does not have a coefficient for race that conforms to the NKF-ASN Task Force Recommendations. Performed By: #### 4 6449 ####[facility] [address] [place] [address] Milton Hinojosa M.D. [id number] Renal function 2000 panelon 07-05-2025 Albumin [Mass/Vol] 2.8 g/dL Low 3.2 - 5.2 g/dL [facility] Anion gap [Moles/Vol] 16 mmol/L 10 - 2 0 mmol/L [facility] Calcium [Mass/Vol] 8.8 mg/dL 8.4 - 10. 2 mg/dL [facility] Chloride [Moles/Vol] 105 mmol/L 98 - 10 8 mmol/L [facility] Creatinine [Mass/Vol] 1.95 mg/dL High 0.60 - 1.20 mg/dL [facility] GFR/1.73 sq M.predicted CKD-EPI (S/P/Bld) [Vol rate/Area] 26 Low - PINF [facility] Glucose [Mass/Vol] 108 mg/dL High 65 - 99 mg/dL [facility] HCO3 [Moles/Vol] 27 mmol/L 21 - 32 mmol/L [facility] Interpretation and review of laboratory results Abnormal [facility] Phosphate [Mass/Vol] 3.1 mg/dL 2.8 - 4 .1 mg/dL [facility] Potassium [Moles/Vol] 4.1 mmol/L 3.5 - 5.1 mmol/L [facility] Sodium [Moles/Vol] 144 mmol/L 135 - 145 mmol/L [facility] Urea nitrogen [Mass/Vol] 14 mg/dL 8 - 25 mg/dL [facility] Urea nitrogen/Creatinine [Mass ratio] 7.2 mg/mg Low 10.0 - 20.0 [facility] APTT HEPARIN COVERAGEon 06-16 0-2024 aPTT Coag (Bld) [Time] [address] Comment on above: Order Comment: Thera peutic range for APTT's is 68 - 104 seconds Performed By: #### 4 6848 ####[facility] [address] [place] [address] Milton Hinojosa M.D. [id number] aPTT Coag (Bld) [Time] [address] Comment on above: Order Comment: Thera peutic range for APTT's is 68 - 104 seconds Performed By: #### 4 6859 ####[facility] [address] [place] [address] Milton Hinojosa M.D. [id number] aPTT Coag (Bld) [Time] 161 s Off scale [address] Comment on above: Order Comment: Thera peutic range for APTT's is 68 - 104 secondsResults checked. Performed By: #### 4 6848 ####[facility] [address] [place] [address] Milton Hinojosa M.D. [id number] aPTT Coag (Bld) [Time] 57 s High 23-34 [facility] Comment on above: Order Comment: Thera peutic range for APTT's is 68 - 104 seconds Performed By: #### 4 6848 ####[facility] [address] [place] [address] 357[address] Milton Hinojosa M.D. [id number] APTT Heparin Coverageon 06-16 aPTT Coag (Bld) [Time] 121 s High [facility] Interpretation and review of laboratory results Abnormal [facility] APTT Heparin CoverageOrdered By: Rony Murillo on 07-04-2025 aPTT Coag (Bld) [Time] 62 s High [facility] Interpretation and review of laboratory results Abnormal [facility] APTT Heparin CoverageOrdered By: Hola Monterroso on 07-04-2025 aPTT Coag (Bld) [Time] 161 s Critically [facility] Interpretation and review of laboratory results Abnormal [facility] BLOOD CULTURE AEROBIC/ANAERO BICon 07-04-2025 BLOOD CULTURE AEROBIC/ANAEROBIC BLOOD CULTURE No Growth after 5 days Normal [facility] Comment on above: Performed By: #### 4 4014 ####[facility] [address] [place] [address] Milton Hinojosa M.D. [id number] Bacteria identified Cx Nom ( Bld)Ordered By: Garrett Michel on 07-04-2025 Gram Stain Result Positive Abnormal [facility] Interpretation and review of laboratory results Abnormal [facility] Blood Culture #1Ordered By: Garrett Michel on 07-04-2025 Bacteria identified Cx Nom (Bld) Staphylococcus aureus Abnormal [facility] CALCIUM, IONIZEDon CALCIUM IONIZED 4.7 mg/dL Normal 4.5-5.3 [facility] Comment on above: Performed By: #### 4 5190 ####[facility] [address] [place], [place] [address] Milton Hinojosa M.D. [id number] CBCon 07-04-2025 AUTO NRBC 0.2 % Normal [facility] Comment on above: Performed By: #### 4 5218 ####[facility] [address] [place] [address] Milton Hinojosa M.D. [id number] AUTO NRBC ABS COUNT 0.03 K/mcL High 0.00-0.00 [facility] Comment on above: Performed By: #### 4 [id number] ####[facility] [address] [place] [address] Milton Hinojosa M.D. [id number] Erythrocyte distribution width (RBC) [Ratio] 16.1 % High 11.6-14.8 [facility] Comment on above: Performed By: #### 4 [id number] ####[facility] [address] [place], [place] [address] Milton Hinojosa M.D. [id number] Hematocrit (Bld) [Volume fraction] 35.3 % Low 36.0-46.0 [facility] Comment on above: Performed By: #### 4 [id number] ####[facility] [address] [place], [place] [address] Milton Hinojosa M.D. [id number] Hemoglobin (Bld) [Mass/Vol] 11.2 g/dL Low 12.0-16.0 [facility] Comment on above: Performed By: #### 4 [id number] ####[facility] [address] [place], [place] [address] Milton Hinojosa M.D. [id number] MCH (RBC) [Entitic mass] 28.1 pg Normal 26.0-34.0 [facility] Comment on above: Performed By: #### 4 [id number] ####[facility] [address] [place] [address] Milton Hinojosa M.D. [id number] MCV (RBC) [Entitic vol] 88.7 fL Normal 80.0-100.0 [facility] Comment on above: Performed By: #### 4 [id number] ####[facility] [address] [place], [place] [address] Milton Hinojosa M.D. [id number] MEAN CORPUSCULAR HEMOGLOBIN CONC 31.7 g/dL Normal 31.0-37.0 [facility] Comment on above: Performed By: #### 4 5218 ####[facility] [address] [place] [address] Milton Hinojosa M.D. [id number] Platelet mean volume (Bld) [Entitic vol] 10.5 fL Normal 9.4-12.4 [facility] Comment on above: Performed By: #### 4 [id number] ####[facility] [address] [place], [place] [address] Milton Hinojosa M.D. [id number] Platelets (Bld) [#/Vol] 239 10*3/uL Normal 150-400 [facility] Comment on above: Result Comment: Repe ated AND verified Performed By: #### 4 [id number] ####[facility] [address] [place], [place] [address] Milton Hinojosa M.D. [id number] RBC (Bld) [#/Vol] 3.98 10*6/uL Low 4.00-5.20 [facility] Comment on above: Performed By: #### 4 [id number] ####[facility] [address] [place], [place] [address] Milton Hinojosa M.D. [id number] WBC (Bld) [#/Vol] 17.64 10*3/uL High 4.50-11.00 [facility] Comment on above: Performed By: #### 4 [id number] ####[facility] [address] [place], [place] [address] Milton Hinojosa M.D. [id number] Calcium, Ionizedon Calcium.ionized [Mass/Vol] 4.7 mg/dL 4.5 - 5.3 mg/dL [facility] Calcium.ionized [Mass/Vol]on 07-04-2025 Interpretation and review of laboratory results Normal [facility] Glucose (Bld) [Mass/Vol]on 0 07-04-2025 Glucose [Mass/Vol] 92 mg/dL 65 - 99 mg/dL [facility] Interpretation and review of laboratory results Normal [facility] Glucose [Mass/Vol] 104 mg/dL High 65 - 99 mg/dL [facility] Interpretation and review of laboratory results Abnormal [facility] Glucose [Mass/Vol] 111 mg/dL High 65 - 99 mg/dL [facility] Interpretation and review of laboratory results Abnormal [facility] Glucose [Mass/Vol] 104 mg/dL High 65 - 99 mg/dL [facility] Interpretation and review of laboratory results Abnormal [facility] Glucose [Mass/Vol] 138 mg/dL High 65 - 99 mg/dL [facility] Interpretation and review of laboratory results Abnormal [facility] MAGNESIUM LEVELon 07-04-2025 Magnesium [Mass/Vol] 2.3 mg/dL Normal 1.6-2.4 [facility] Comment on above: Performed By: #### 4 6109 ####[facility] [address] [place], [place] [address] Milton Hinojosa M.D. [id number] POC GLUCOSE - [facility] 025 Glucose [Mass/Vol] 92 mg/dL Normal 65-99 [place] Comment on above: Performed By: #### 4 6932 ####[facility] [address] [place] [address] [id number] [facility] Glucose [Mass/Vol] 104 mg/dL High 65-99 [place] Comment on above: Performed By: #### 4 6956 ####[facility] [address] [place] [address] [id number] [facility] Glucose [Mass/Vol] 111 mg/dL High [place] Comment on above: Performed By: #### 4 6932 ####[facility] [address] [place] [address] [id number] [facility] Glucose [Mass/Vol] 104 mg/dL High [place] Comment on above: Performed By: #### 4 6932 ####[facility] [address] [place] [address] [id number] [facility] Glucose [Mass/Vol] 138 mg/dL High [place] Comment on above: Performed By: #### 4 6932 ####[facility] [address] [place] [address] [id number] [facility] Glucose [Mass/Vol] 104 mg/dL High [place] Comment on above: Performed By: #### 4 6932 ####[facility] [address] [place] [address] [id number] [facility] RENAL FUNCTION PANELon 07-04 Albumin [Mass/Vol] 2.9 g/dL Low 3.2-5.2 [place] Comment on above: Order Comment: [facility] has implemented the eGFR calculation approach that does not have a coefficient for race that conforms to the NKF-ASN Task Force Recommendations. Performed By: #### 4 6449 ####[facility] [address] [place] [address] Milton Hinojosa M.D. [id number] Anion gap [Moles/Vol] 23 mmol/L High 09-03 [facility] Comment on above: Order Comment: [facility] has implemented the eGFR calculation approach that does not have a coefficient for race that conforms to the NKF-ASN Task Force Recommendations. Performed By: #### 4 6449 ####[facility] [address] [place] [address] Milton Hinojosa M.D. [id number] Calcium [Mass/Vol] 8.8 mg/dL Normal 8.4-10.2 [place] Comment on above: Order Comment: [facility] has implemented the eGFR calculation approach that does not have a coefficient for race that conforms to the NKF-ASN Task Force Recommendations. Performed By: #### 4 6449 ####[facility] [address] [place], [place] [address] Milton Hinojosa M.D. [id number] Chloride [Moles/Vol] 101 mmol/L Normal 98-108 [facility] Comment on above: Order Comment: [facility] has implemented the eGFR calculation approach that does not have a coefficient for race that conforms to the NKF-ASN Task Force Recommendations. Performed By: #### 4 6449 ####[facility] [address] [place], [place] [address] Milton Hinojosa M.D. [id number] Creatinine [Mass/Vol] 2.10 mg/dL High 0.60-1.20 [facility] Comment on above: Order Comment: [facility] has implemented the eGFR calculation approach that does not have a coefficient for race that conforms to the NKF-ASN Task Force Recommendations. Performed By: #### 4 6449 ####[facility] [address] [place], [place] [address] Milton Hinojosa M.D. [id number] EGFR 24 mL/min/1.73 m2 Low >=60 [facility] Comment on above: Order Comment: [facility] has implemented the eGFR calculation approach that does not have a coefficient for race that conforms to the NKF-ASN Task Force Recommendations. Result Comment: Lalita mated GFR was calculated using the 2020 CKD-EPI creatinine equation. Performed By: #### 4 6449 ####[facility] [address] [place], [place] [address] Milton Hinojosa M.D. [id number] Glucose [Mass/Vol] 112 mg/dL High 65-99 [place] Comment on above: Order Comment: [facility] has implemented the eGFR calculation approach that does not have a coefficient for race that conforms to the NKF-ASN Task Force Recommendations. Performed By: #### 4 6449 ####[facility] [address] [place], [place] [address] Milton Hinojosa M.D. [id number] HCO3 (Bld) [Moles/Vol] 17 mmol/L Low 21-32 [facility] Comment on above: Order Comment: [facility] has implemented the eGFR calculation approach that does not have a coefficient for race that conforms to the NKF-ASN Task Force Recommendations. Performed By: #### 4 6449 ####[facility] [address] [place], [place] [address] Milton Hinojosa M.D. [id number] Phosphate [Mass/Vol] 3.6 mg/dL Normal 2.8-4.1 [facility] Comment on above: Order Comment: [facility] has implemented the eGFR calculation approach that does not have a coefficient for race that conforms to the NKF-ASN Task Force Recommendations. Performed By: #### 4 6449 ####[facility] [address] [place], [place] [address] Milton Hinojosa M.D. [id number] Potassium [Moles/Vol] 4.5 mmol/L Normal 3.5-5.1 [facility] Comment on above: Order Comment: [facility] has implemented the eGFR calculation approach that does not have a coefficient for race that conforms to the NKF-ASN Task Force Recommendations. Performed By: #### 4 6449 ####[facility] [address] [place], [place] [address] Milton Hinojosa M.D. [id number] Sodium [Moles/Vol] 136 mmol/L Normal 135-145 [place] Comment on above: Order Comment: [facility] has implemented the eGFR calculation approach that does not have a coefficient for race that conforms to the NKF-ASN Task Force Recommendations. Performed By: #### 4 6449 ####[facility] [address] [place] [address] Milton Hinojosa M.D. [id number] Urea nitrogen [Mass/Vol] 16 mg/dL Normal 8-25 [facility] Comment on above: Order Comment: [facility] has implemented the eGFR calculation approach that does not have a coefficient for race that conforms to the NKF-ASN Task Force Recommendations. Performed By: #### 4 6449 ####[facility] [address] [place] [address] 80511 Milton Hinojosa M.D. [id number] Urea nitrogen/Creatinine [Mass ratio] 7.6 mg/mg Low 10.0-20.0 [facility] Comment on above: Order Comment: [facility] has implemented the eGFR calculation approach that does not have a coefficient for race that conforms to the NKF-ASN Task Force Recommendations. Performed By: #### 4 6449 ####[facility] [address] [place] [address] 03716 Milton Hinojosa M.D. [id number] RF videography Hypopharynx a nd Esophagus Views W liquid and paste contrast PO during swallowingon 07-04-2025 GE Browsy GE Browsy [facility] Radiology Study observation (narrative) [facility] Renal function 2000 panelOrd ered By: Julee Crowe on 07-04-2025 Albumin [Mass/Vol] 2.9 g/dL Low 3.2 - 5.2 g/dL [facility] Anion gap [Moles/Vol] 23 mmol/L High 10 - 2 0 mmol/L [facility] Calcium [Mass/Vol] 8.8 mg/dL 8.4 - 10. 2 mg/dL [facility] Chloride [Moles/Vol] 101 mmol/L 98 - 10 8 mmol/L [facility] Creatinine [Mass/Vol] 2.1 mg/dL High 0.60 - 1.20 mg/dL [facility] GFR/1.73 sq M.predicted CKD-EPI (S/P/Bld) [Vol rate/Area] 24 Low - PINF [facility] Glucose [Mass/Vol] 112 mg/dL High 65 - 99 mg/dL [facility] HCO3 [Moles/Vol] 17 mmol/L Low 21 - 32 mmol/L [facility] Phosphate [Mass/Vol] 3.6 mg/dL 2.8 - 4 .1 mg/dL [facility] Potassium [Moles/Vol] 4.5 mmol/L 3.5 - 5.1 mmol/L [facility] Sodium [Moles/Vol] 136 mmol/L 135 - 145 mmol/L [facility] Urea nitrogen [Mass/Vol] 16 mg/dL 8 - 25 mg/dL [facility] Urea nitrogen/Creatinine [Mass ratio] 7.6 mg/mg Low 10.0 - 20.0 [facility] XR MODIFIED BARIUM SWALLOWon 07-04-2025 XR MODIFIED BARIUM SWALLOW Normal [facility] Comment on above: Order Comment: Injur y/Trauma or Illness?:Illness/OtherHow long have you had these symptoms (acute/chronic)?:UnknownReason for exam?:dysphagiaType of Exam?:OngoingAdditional signs and symptoms?:.Fluoro time in minutes:1.4Fluoro dose in mGy?:2.8 APTTon 07-03-2025 aPTT Coag (Bld) [Time] [address] Comment on above: Order Comment: Thera peutic range for APTT's is 68 - 104 seconds Performed By: #### 4 5113 ####[facility] [address] [place], [place] [address] Milton Hinojosa M.D. [id number] APTT HEPARIN COVERAGEon 06-15 aPTT Coag (Bld) [Time] 56 s High 2334 [facility] Comment on above: Order Comment: Thera peutic range for APTT's is 68 - 104 seconds Performed By: #### 4 6848 ####[facility] [address] [place], [place] [address] Milton Hinojosa M.D. [id number] aPTT Coag (Bld) [Time] 117 s High 23-34 [facility] Comment on above: Order Comment: Thera peutic range for APTT's is 68 - 104 secondsResults checked. Performed By: #### 4 6848 ####[facility] [address] [place] [address] Milton Hinojosa M.D. [id number] CALCIUM, IONIZEDon CALCIUM IONIZED 4.6 mg/dL Normal 4.5-5.3 [facility] Comment on above: Order Comment: Serum , non-CRRT source. Performed By: #### 4 5190 ####[facility] [address] [place] [address] Milton Hinojosa M.D. [id number] CALCIUM IONIZED 4.7 mg/dL Normal 4.5-5.3 [facility] Comment on above: Order Comment: Serum , non-CRRT source. Performed By: #### 4 5190 ####[facility] [address] [place] [address] Milton Hinojosa M.D. [id number] CALCIUM IONIZED 4.7 mg/dL Normal 4.5-5.3 [facility] Comment on above: Performed By: #### 4 5190 ####[facility] [address] [place] [address] Milton Hinojosa M.D. [id number] CALCIUM IONIZED 4.7 mg/dL Normal 4.5-5.3 [facility] Comment on above: Order Comment: Serum , non-CRRT source. Performed By: #### 4 5190 ####[facility] [address] [place], [place] [address] Milton Hinojosa M.D. [id number] CBCon 07-03-2025 AUTO NRBC 0.0 % Normal [facility] Comment on above: Performed By: #### 4 [id number] ####[facility] [address] [place] [address] Milton Hinojosa M.D. [id number] AUTO NRBC ABS COUNT 0.00 K/mcL Normal 0.00-0.00 [facility] Comment on above: Performed By: #### 4 5218 ####[facility] [address] [place] [address] Milton Hinojosa M.D. [id number] Erythrocyte distribution width (RBC) [Ratio] 16.0 % High 11.6-14.8 [facility] Comment on above: Performed By: #### 4 5218 ####[facility] [address] [place] [address] Milton Hinojosa M.D. [id number] Hematocrit (Bld) [Volume fraction] 34.8 % Low 36.0-46.0 [facility] Comment on above: Performed By: #### 4 5218 ####[facility] [address] [place] [address] Milton Hinojosa M.D. [id number] Hemoglobin (Bld) [Mass/Vol] 10.8 g/dL Low 12.0-16.0 [facility] Comment on above: Performed By: #### 4 5218 ####[facility] [address] [place], [place] [address] Milton Hinojosa M.D. [id number] MCH (RBC) [Entitic mass] 28.6 pg Normal 26.0-34.0 [facility] Comment on above: Performed By: #### 4 5218 ####[facility] [address] [place] [address] Milton Hinojosa M.D. [id number] MCV (RBC) [Entitic vol] 92.1 fL Normal 80.0-100.0 [facility] Comment on above: Performed By: #### 4 5218 ####[facility] [address] [place] [address] Milton Hinojosa M.D. [id number] MEAN CORPUSCULAR HEMOGLOBIN CONC 31.0 g/dL Normal 31.0-37.0 [facility] Comment on above: Performed By: #### 4 5218 ####[facility] [address] [place] [address] Milton Hinojosa M.D. [id number] Platelet mean volume (Bld) [Entitic vol] 10.6 fL Normal 9.4-12.4 [facility] Comment on above: Performed By: #### 4 5218 ####[facility] [address] [place] [address] Milton Hinojosa M.D. [id number] Platelets (Bld) [#/Vol] 151 10*3/uL Normal 150-400 [facility] Comment on above: Performed By: #### 4 5218 ####[facility] [address] [place], [place] [address] Milton Hinojosa M.D. [id number] RBC (Bld) [#/Vol] 3.78 10*6/uL Low 4.00-5.20 [facility] Comment on above: Performed By: #### 4 5218 ####[facility] [address] [place] [address] Milton Hinojosa M.D. [id number] WBC (Bld) [#/Vol] 16.32 10*3/uL High 4.50-11.00 [facility] Comment on above: Performed By: #### 4 5218 ####[facility] [address] [place] [address] Milton Hinojosa M.D. [id number] CBC W/Diff, Automatedon 06-15 Absolute Neut Normal 2.0-7.7 [facility] Comment on above: Result Comment: Canc elled via OM: Order cancelled - Patient discharged Performed By: #### L 500.4050, L100.0100 ####[facility] [address] [place], [address] HCT Normal 37-47 [facility] Comment on above: Result Comment: Canc elled via OM: Order cancelled - Patient discharged Performed By: #### L 500.4050, L100.0100 ####[facility] [address] [place], [address] HGB Normal 12.0-15.0 [facility] Comment on above: Result Comment: Canc elled via OM: Order cancelled - Patient discharged Performed By: #### L 500.4050, L100.0100 ####[facility] [address] [place], [address] MCH Normal 27.0-32.0 [facility] Comment on above: Result Comment: Canc elled via OM: Order cancelled - Patient discharged Performed By: #### L 500.4050, L100.0100 ####[facility] [address] [place], [address] MCHC Normal 32-36 [facility] Comment on above: Result Comment: Canc elled via OM: Order cancelled - Patient discharged Performed By: #### L 500.4050, L100.0100 ####[facility] [address] [place], [address] MCV Normal 81-99 [facility] Comment on above: Result Comment: Canc elled via OM: Order cancelled - Patient discharged Performed By: #### L 500.4050, L100.0100 ####[facility] [address] [place], [address] NEUT% Normal 47-70 [facility] Comment on above: Result Comment: Canc elled via OM: Order cancelled - Patient discharged Performed By: #### L 500.4050, L100.0100 ####[facility] [address] [place], [address] PLT Normal 150-450 [facility] Comment on above: Result Comment: Canc elled via OM: Order cancelled - Patient discharged Performed By: #### L 500.4050, L100.0100 ####[facility] [address] [place], [address] RBC Normal 4.2-5.4 [facility] Comment on above: Result Comment: Canc elled via OM: Order cancelled - Patient discharged Performed By: #### L 500.4050, L100.0100 ####[facility] [address] [place], [address] RDW CV Normal 11.6-14.6 [facility] Comment on above: Result Comment: Canc elled via OM: Order cancelled - Patient discharged Performed By: #### L 500.4050, L100.0100 ####[facility] [address] [place], [address] RDW SD Normal 35.1-43.9 [facility] Comment on above: Result Comment: Canc elled via OM: Order cancelled - Patient discharged Performed By: #### L 500.4050, L100.0100 ####[facility] [address] [place], [address] WBC Normal 4.4-11.0 [facility] Comment on above: Result Comment: Canc elled via OM: Order cancelled - Patient discharged Performed By: #### L 500.4050, L100.0100 ####[facility] [address] [place], [address] Comprehensive Metabolic Prof ilon 07-03-2025 ALB Normal 3.4-4.8 [facility] Comment on above: Result Comment: Canc elled via OM: Order cancelled - Patient discharged Performed By: #### L 500.4050, L100.0100 ####[facility] [address] [place], [address] ALK PHOS Normal 35-104 [facility] Comment on above: Result Comment: Canc elled via OM: Order cancelled - Patient discharged Performed By: #### L 500.4050, L100.0100 ####[facility] [address] [place], [address] ALT Normal <=34 [facility] Comment on above: Result Comment: Canc elled via OM: Order cancelled - Patient discharged Performed By: #### L 500.4050, L100.0100 ####[facility] [address] [place], [address] AST Normal <=31 [facility] Comment on above: Result Comment: Canc elled via OM: Order cancelled - Patient discharged Performed By: #### L 500.4050, L100.0100 ####[facility] [address] [place], [address] BUN Normal 4-19 [facility] Comment on above: Result Comment: Canc elled via OM: Order cancelled - Patient discharged Performed By: #### L 500.4050, L100.0100 ####[facility] [address] [place], [address] BUN/CRE Normal 10-20 [facility] Comment on above: Result Comment: Canc elled via OM: Order cancelled - Patient discharged Performed By: #### L 500.4050, L100.0100 ####[facility] [address] [place], [address] Calcium Normal 7.6-11.0 [facility] Comment on above: Result Comment: Canc elled via OM: Order cancelled - Patient discharged Performed By: #### L 500.4050, L100.0100 ####[facility] [address] [place], [address] CL Normal 98-108 [facility] Comment on above: Result Comment: Canc elled via OM: Order cancelled - Patient discharged Performed By: #### L 500.4050, L100.0100 ####[facility] [address] [place], [address] CO2 Normal 21.0-32.0 [facility] Comment on above: Result Comment: Canc elled via OM: Order cancelled - Patient discharged Performed By: #### L 500.4050, L100.0100 ####[facility] [address] [place], [address] CREAT,SERUM Normal 0.70-1.20 [facility] Comment on above: Result Comment: Canc elled via OM: Order cancelled - Patient discharged Performed By: #### L 500.4050, L100.0100 ####[facility] [address] [place], [address] eGFR Normal >60 [facility] Comment on above: Result Comment: Canc elled via OM: Order cancelled - Patient discharged Performed By: #### L 500.4050, L100.0100 ####[facility] [address] [place], [address] GAP Normal 5-15 [facility] Comment on above: Result Comment: Canc elled via OM: Order cancelled - Patient discharged Performed By: #### L 500.4050, L100.0100 ####[facility] [address] [place], [address] GLU Normal 70-99 [facility] Comment on above: Result Comment: Canc elled via OM: Order cancelled - Patient discharged Performed By: #### L 500.4050, L100.0100 ####[facility] [address] [place], [address] Potassium Normal 3.3-5.1 [facility] Comment on above: Result Comment: Canc elled via OM: Order cancelled - Patient discharged Performed By: #### L 500.4050, L100.0100 ####[facility] [address] [place], [address] T BILI Normal 0.00-1.30 [facility] Comment on above: Result Comment: Canc elled via OM: Order cancelled - Patient discharged Performed By: #### L 500.4050, L100.0100 ####[facility] [address] [place], [address] T PROT Normal 5.9-8.4 [facility] Comment on above: Result Comment: Canc elled via OM: Order cancelled - Patient discharged Performed By: #### L 500.4050, L100.0100 ####[facility] [address] [place], [address] Comprehensive Metabolic Profil Normal 133-145 [facility] Comment on above: Result Comment: Canc elled via OM: Order cancelled - Patient discharged Performed By: #### L 500.4050, L100.0100 ####[facility] [address] [place], [address] Culture, Anaerobic Any Sourc cecil 07-03-2025 CUAN . . No growth in 5 days. Normal [facility] Comment on above: Performed By: #### L 350.1000, L200.0200, M100.2000, M100.2900, M100.4001 ####[facility] [address] [place], [address] MAGNESIUM LEVELon 07-03-2025 Magnesium [Mass/Vol] 2.3 mg/dL Normal 1.6-2.4 [facility] Comment on above: Performed By: #### 4 6109 ####[facility] [address] [address] Milton Hinojosa M.D. [id number] Magnesium [Mass/Vol] 2.4 mg/dL Normal 1.6-2.4 [facility] Comment on above: Performed By: #### 4 6109 ####[facility] [address] [place], [place] [address] Milton Hinojosa M.D. [id number] Magnesium [Mass/Vol] 2.3 mg/dL Normal 1.6-2.4 [facility] Comment on above: Performed By: #### 4 6109 ####[facility] [address] [place] [address] Milton Hinojosa M.D. [id number] Magnesium [Mass/Vol] 2.4 mg/dL Normal 1.6-2.4 [facility] Comment on above: Performed By: #### 4 6109 ####[facility] [address] [place] [address] Milton Hinojosa M.D. [id number] POC GLUCOSE [facility] 025 Glucose [Mass/Vol] 96 mg/dL Normal 65-99 [place] Comment on above: Performed By: #### 4 4560 ####[facility] [address] [place] [address] [id number] [facility] Glucose [Mass/Vol] 85 mg/dL Normal 65-99 [place] Comment on above: Performed By: #### 4 2123 ####[facility] [address] [place] [address] [id number] [facility] Glucose [Mass/Vol] 84 mg/dL Normal 65-99 [place] Comment on above: Performed By: #### 4 3407 ####[facility] [address] [place] [address] [id number] [facility] Glucose [Mass/Vol] 88 mg/dL Normal 65-99 [place] Comment on above: Performed By: #### 4 0260 ####[facility] [address] [place] [address] [id number] [facility] Glucose [Mass/Vol] 96 mg/dL Normal 65-99 [place] Comment on above: Performed By: #### 4 6932 ####[facility] [address] [place] [address] [id number] [facility] RENAL FUNCTION PANELon 07-03 Albumin [Mass/Vol] 2.9 g/dL Low 3.2-5.2 [place] Comment on above: Order Comment: [facility] has implemented the eGFR calculation approach that does not have a coefficient for race that conforms to the NKF-ASN Task Force Recommendations. Performed By: #### 4 6449 ####[facility] [address] [place], [place] [address] Milton Hinojosa M.D. [id number] Anion gap [Moles/Vol] 18 mmol/L Normal 10-20 [facility] Comment on above: Order Comment: [facility] has implemented the eGFR calculation approach that does not have a coefficient for race that conforms to the NKF-ASN Task Force Recommendations. Performed By: #### 4 6449 ####[facility] [address] [place] [address] Milton Hinojosa M.D. [id number] Calcium [Mass/Vol] 8.0 mg/dL Low 8.4-10.2 [place] Comment on above: Order Comment: [facility] has implemented the eGFR calculation approach that does not have a coefficient for race that conforms to the NKF-ASN Task Force Recommendations. Performed By: #### 4 6449 ####[facility] [address] [place] [address] Milton Hinojosa M.D. [id number] Chloride [Moles/Vol] 102 mmol/L Normal 98-108 [facility] Comment on above: Order Comment: [facility] has implemented the eGFR calculation approach that does not have a coefficient for race that conforms to the NKF-ASN Task Force Recommendations. Performed By: #### 4 6449 ####[facility] [address] [place] [address] Milton Hinojosa M.D. [id number] Creatinine [Mass/Vol] 1.29 mg/dL High 0.60-1.20 [facility] Comment on above: Order Comment: [facility] has implemented the eGFR calculation approach that does not have a coefficient for race that conforms to the NKF-ASN Task Force Recommendations. Performed By: #### 4 6449 ####[facility] [address] [place] [address] Milton Hinojosa M.D. [id number] EGFR 43 mL/min/1.73 m2 Low >=60 [facility] Comment on above: Order Comment: [facility] has implemented the eGFR calculation approach that does not have a coefficient for race that conforms to the NKF-ASN Task Force Recommendations. Result Comment: Lalita mated GFR was calculated using the 2020 CKD-EPI creatinine equation. Performed By: #### 4 6449 ####[facility] [address] [place], [place] [address] Milotn Hinojosa M.D. [id number] Glucose [Mass/Vol] 92 mg/dL Normal 65-99 [place] Comment on above: Order Comment: [facility] has implemented the eGFR calculation approach that does not have a coefficient for race that conforms to the NKF-ASN Task Force Recommendations. Performed By: #### 4 6449 ####[facility] [address] [place] [address] Milton Hinojosa M.D. [id number] HCO3 (Bld) [Moles/Vol] 20 mmol/L Low 21-32 [facility] Comment on above: Order Comment: [facility] has implemented the eGFR calculation approach that does not have a coefficient for race that conforms to the NKF-ASN Task Force Recommendations. Performed By: #### 4 6449 ####[facility] [address] [place], [place] [address] Milton Hinojosa M.D. [id number] Phosphate [Mass/Vol] 2.8 mg/dL Normal 2.8-4.1 [facility] Comment on above: Order Comment: [facility] has implemented the eGFR calculation approach that does not have a coefficient for race that conforms to the NKF-ASN Task Force Recommendations. Performed By: #### 4 6449 ####[facility] [address] [place] [address] Milton Hinojosa M.D. [id number] Potassium [Moles/Vol] 4.3 mmol/L Normal 3.5-5.1 [facility] Comment on above: Order Comment: [facility] has implemented the eGFR calculation approach that does not have a coefficient for race that conforms to the NKF-ASN Task Force Recommendations. Performed By: #### 4 6449 ####[facility] [address] [place] [address] Milton Hinojosa M.D. [id number] Sodium [Moles/Vol] 136 mmol/L Normal 135-145 [place] Comment on above: Order Comment: [facility] has implemented the eGFR calculation approach that does not have a coefficient for race that conforms to the NKF-ASN Task Force Recommendations. Performed By: #### 4 6449 ####[facility] [address] [place], [place] [address] Milton Hinojosa M.D. [id number] Urea nitrogen [Mass/Vol] 13 mg/dL Normal 8-25 [facility] Comment on above: Order Comment: [facility] has implemented the eGFR calculation approach that does not have a coefficient for race that conforms to the NKF-ASN Task Force Recommendations. Performed By: #### 4 6449 ####[facility] [address] [place] [address] Milton Hinojosa M.D. [id number] Urea nitrogen/Creatinine [Mass ratio] 10.1 mg/mg Normal 10.0-20.0 [facility] Comment on above: Order Comment: [facility] has implemented the eGFR calculation approach that does not have a coefficient for race that conforms to the NKF-ASN Task Force Recommendations. Performed By: #### 4 6449 ####[facility] [address] [place] [address] Milton Hinojosa M.D. [id number] Albumin [Mass/Vol] 3.0 g/dL Low 3.2-5.2 [place] Comment on above: Order Comment: [facility] has implemented the eGFR calculation approach that does not have a coefficient for race that conforms to the NKF-ASN Task Force Recommendations. Performed By: #### 4 6449 ####[facility] [address] [place] [address] Milton Hinojosa M.D. [id number] Anion gap [Moles/Vol] 17 mmol/L Normal 10-20 [facility] Comment on above: Order Comment: [facility] has implemented the eGFR calculation approach that does not have a coefficient for race that conforms to the NKF-ASN Task Force Recommendations. Performed By: #### 4 6449 ####[facility] [address] [place] [address] Mliton Hinojosa M.D. [id number] Calcium [Mass/Vol] 8.7 mg/dL Normal 8.4-10.2 [place] Comment on above: Order Comment: [facility] has implemented the eGFR calculation approach that does not have a coefficient for race that conforms to the NKF-ASN Task Force Recommendations. Performed By: #### 4 6449 ####[facility] [address] [place] [address] Milton Hinojosa M.D. [id number] Chloride [Moles/Vol] 101 mmol/L Normal 98-108 [facility] Comment on above: Order Comment: [facility] has implemented the eGFR calculation approach that does not have a coefficient for race that conforms to the NKF-ASN Task Force Recommendations. Performed By: #### 4 6449 ####[facility] [address] [place] [address] Milton Hinojosa M.D. [id number] Creatinine [Mass/Vol] 1.25 mg/dL High 0.60-1.20 [facility] Comment on above: Order Comment: [facility] has implemented the eGFR calculation approach that does not have a coefficient for race that conforms to the NKF-ASN Task Force Recommendations. Performed By: #### 4 6449 ####[facility] [address] [place] [address] 61027 Milton Hinojosa M.D. [id number] EGFR 45 mL/min/1.73 m2 Low >=60 [facility] Comment on above: Order Comment: [facility] has implemented the eGFR calculation approach that does not have a coefficient for race that conforms to the NKF-ASN Task Force Recommendations. Result Comment: Lalita mated GFR was calculated using the 2020 CKD-EPI creatinine equation. Performed By: #### 4 6449 ####[facility] [address] [place] [address] 12681 Milton Hinojosa M.D. [id number] Glucose [Mass/Vol] 105 mg/dL High 65-99 [place] Comment on above: Order Comment: [facility] has implemented the eGFR calculation approach that does not have a coefficient for race that conforms to the NKF-ASN Task Force Recommendations. Performed By: #### 4 6449 ####[facility] [address] [place] [address] 18061 Milton Hinojosa M.D. [id number] HCO3 (Bld) [Moles/Vol] 20 mmol/L Low 21-32 [facility] Comment on above: Order Comment: [facility] has implemented the eGFR calculation approach that does not have a coefficient for race that conforms to the NKF-ASN Task Force Recommendations. Performed By: #### 4 6449 ####[facility] [address] [place] [address] 66228 Milton Hinojosa M.D. [id number] Phosphate [Mass/Vol] 2.6 mg/dL Low 2.8-4.1 [facility] Comment on above: Order Comment: [facility] has implemented the eGFR calculation approach that does not have a coefficient for race that conforms to the NKF-ASN Task Force Recommendations. Performed By: #### 4 6449 ####[facility] [address] [place] [address] 05220 Milton Hinojosa M.D. [id number] Potassium [Moles/Vol] 3.8 mmol/L Normal 3.5-5.1 [facility] Comment on above: Order Comment: [facility] has implemented the eGFR calculation approach that does not have a coefficient for race that conforms to the NKF-ASN Task Force Recommendations. Performed By: #### 4 6449 ####[facility] [address] [place] [address] 92158 Milton Hinojosa M.D. [id number] Sodium [Moles/Vol] 134 mmol/L Low 135-145 [place] Comment on above: Order Comment: [facility] has implemented the eGFR calculation approach that does not have a coefficient for race that conforms to the NKF-ASN Task Force Recommendations. Performed By: #### 4 6449 ####[facility] [address] [place] [address] 84636 Milton Hinojosa M.D. [id number] Urea nitrogen [Mass/Vol] 14 mg/dL Normal 8-25 [facility] Comment on above: Order Comment: [facility] has implemented the eGFR calculation approach that does not have a coefficient for race that conforms to the NKF-ASN Task Force Recommendations. Performed By: #### 4 6449 ####[facility] [address] [place] [address] 89559 Milton Hinojosa M.D. [id number] Urea nitrogen/Creatinine [Mass ratio] 11.2 mg/mg Normal 10.0-20.0 [facility] Comment on above: Order Comment: [facility] has implemented the eGFR calculation approach that does not have a coefficient for race that conforms to the NKF-ASN Task Force Recommendations. Performed By: #### 4 6449 ####[facility] [address] [place] [address] 47193 Milton Hinojosa M.D. [id number] Albumin [Mass/Vol] 3.0 g/dL Low 3.2-5.2 [place] Comment on above: Order Comment: [facility] has implemented the eGFR calculation approach that does not have a coefficient for race that conforms to the NKF-ASN Task Force Recommendations. Performed By: #### 4 6449 ####[facility] [address] [place], [place] [address] Milton Hinojosa M.D. [id number] Anion gap [Moles/Vol] 19 mmol/L Normal 10-20 [facility] Comment on above: Order Comment: [facility] has implemented the eGFR calculation approach that does not have a coefficient for race that conforms to the NKF-ASN Task Force Recommendations. Performed By: #### 4 6449 ####[facility] [address] [place] [address] 05152 Milton Hinojosa M.D. [id number] Calcium [Mass/Vol] 8.8 mg/dL Normal 8.4-10.2 [place] Comment on above: Order Comment: [facility] has implemented the eGFR calculation approach that does not have a coefficient for race that conforms to the NKF-ASN Task Force Recommendations. Performed By: #### 4 6449 ####[facility] [address] [place] [address] 67991 Milton Hinojosa M.D. [id number] Chloride [Moles/Vol] 102 mmol/L Normal 98-108 [facility] Comment on above: Order Comment: [facility] has implemented the eGFR calculation approach that does not have a coefficient for race that conforms to the NKF-ASN Task Force Recommendations. Performed By: #### 4 6449 ####[facility] [address] [place], [place] [address] Milton Hinojosa M.D. [id number] Creatinine [Mass/Vol] 1.49 mg/dL High 0.60-1.20 [facility] Comment on above: Order Comment: [facility] has implemented the eGFR calculation approach that does not have a coefficient for race that conforms to the NKF-ASN Task Force Recommendations. Performed By: #### 4 6449 ####[facility] [address] [place], [place] [address] Milton Hinojosa M.D. [id number] EGFR 36 mL/min/1.73 m2 Low >=60 [facility] Comment on above: Order Comment: [facility] has implemented the eGFR calculation approach that does not have a coefficient for race that conforms to the NKF-ASN Task Force Recommendations. Result Comment: Lalita mated GFR was calculated using the 2020 CKD-EPI creatinine equation. Performed By: #### 4 6449 ####[facility] [address] [place], [place] [address] Milton Hinojosa M.D. [id number] Glucose [Mass/Vol] 109 mg/dL High 65-99 [place] Comment on above: Order Comment: [facility] has implemented the eGFR calculation approach that does not have a coefficient for race that conforms to the NKF-ASN Task Force Recommendations. Performed By: #### 4 6449 ####[facility] [address] [place], [place] [address] Milton Hinojosa M.D. [id number] HCO3 (Bld) [Moles/Vol] 20 mmol/L Low 21-32 [facility] Comment on above: Order Comment: [facility] has implemented the eGFR calculation approach that does not have a coefficient for race that conforms to the NKF-ASN Task Force Recommendations. Performed By: #### 4 6449 ####[facility] [address] [place] [address] 64644 Milton Hinojosa M.D. [id number] Phosphate [Mass/Vol] 2.7 mg/dL Low 2.8-4.1 [facility] Comment on above: Order Comment: [facility] has implemented the eGFR calculation approach that does not have a coefficient for race that conforms to the NKF-ASN Task Force Recommendations. Performed By: #### 4 6449 ####[facility] [address] [place] [address] 64595 Milton Hinojosa M.D. [id number] Potassium [Moles/Vol] 4.1 mmol/L Normal 3.5-5.1 [facility] Comment on above: Order Comment: [facility] has implemented the eGFR calculation approach that does not have a coefficient for race that conforms to the NKF-ASN Task Force Recommendations. Performed By: #### 4 6449 ####[facility] [address] [place] [address] 30775 Milton Hinojosa M.D. [id number] Sodium [Moles/Vol] 137 mmol/L Normal 135-145 [place] Comment on above: Order Comment: [facility] has implemented the eGFR calculation approach that does not have a coefficient for race that conforms to the NKF-ASN Task Force Recommendations. Performed By: #### 4 6449 ####[facility] [address] [place] [address] 71389 Milton Hinojosa M.D. [id number] Urea nitrogen [Mass/Vol] 16 mg/dL Normal 8-25 [facility] Comment on above: Order Comment: [facility] has implemented the eGFR calculation approach that does not have a coefficient for race that conforms to the NKF-ASN Task Force Recommendations. Performed By: #### 4 6449 ####[facility] [address] [place] [address] 79784 Milton Hinojosa M.D. [id number] Urea nitrogen/Creatinine [Mass ratio] 10.7 mg/mg Normal 10.0-20.0 [facility] Comment on above: Order Comment: [facility] has implemented the eGFR calculation approach that does not have a coefficient for race that conforms to the NKF-ASN Task Force Recommendations. Performed By: #### 4 6449 ####[facility] [address] [place] [address] 05389 Milton Hinojosa M.D. [id number] STOOL/GI PCR PANELon 025 STOOL/GI PCR PANEL STOOL/GI PCR PANEL COMMENT Test canceled. Test not performed on hospitalized patients >3 days post-admission. If C. difficile suspected, order C. difficile test. Normal [facility] Comment on above: Order Comment: Resul ts of PCR testing for stool pathogens must be taken into clinical context when making treatment decisions. Most gastrointestinal infections due to common bacterial and viral causes are self-limited in nature and do not require antimicrobial therapy. The use of antimicrobial therapy must be carefully weighed against unintended and potentially harmful consequences. The role of antimicrobial therapy depends on the implicated pathogen. In general, antimicrobial agents are only used to treat parasitic infections as well as select bacterial infections. Performed By: #### L [id number] ####[facility] [address] [place] [address] 74141 Milton Hinojosa M.D. [id number] APTTon 07-02-2025 aPTT Coag (Bld) [Time] 65 s High 23-34 [facility] Comment on above: Order Comment: Thera peutic range for APTT's is 68 - 104 seconds Performed By: #### 4 5113 ####[facility] [address] [place] [address] 35115 Milton Hinojosa M.D. [id number] APTT HEPARIN COVERAGEon 06-15 aPTT Coag (Bld) [Time] 68 s High 23-34 [facility] Comment on above: Order Comment: Thera peutic range for APTT's is 68 - 104 seconds Performed By: #### 4 6848 ####[facility] [address] [place], [place] [address] Milton Hinojosa M.D. [id number] BLOOD CULTURE AEROBIC/ANAERO BICon 07-02-2025 BLOOD CULTURE AEROBIC/ANAEROBIC BLOOD CULTURE STAPHYLOCOCCUS AUREUS Staphylococcus aureus Sets Positive [2] of [2] See susceptibility from same source/different date: 06/29/25 GRAM STAIN RESULT BC Gram Positive Cocci in clusters Previous result called 06/30/25 @ 0916 Abnormal [facility] Comment on above: Performed By: #### 4 4014 ####[facility] [address] [place], [place] [address] Milton Hinojosa M.D. [id number] BLOOD CULTURE AEROBIC/ANAEROBIC Abnormal [facility] Comment on above: Performed By: #### 4 4014 ####[facility] [address] [place], [place] [address] Milton Hinojosa M.D. [id number] Body Fluid Cell Count+Diffon 07-02-2025 Lymphocytes (Bld) [#/Vol] 14 10*3/uL Normal [facility] Comment on above: Order Comment: The r eference interval(s) and other method performancespecifications are unavailable for this body fluid.Comparison of the result with concentration in the blood,serum, or plasma is recommended.THORA Result Comment: AMENDED REPORT 07/02/25924 LYMPH previously reported as: 4 % Performed By: #### L 350.1000, L200.0200, M100.2000, M100.2900, M100.4001 ####[facility] [address] [place], [address] MACROPHAGES 92 Normal [facility] Comment on above: Order Comment: The r eference interval(s) and other method performancespecifications are unavailable for this body fluid.Comparison of the result with concentration in the blood,serum, or plasma is recommended.THORA Result Comment: AMENDED REPORT 07/02/25924 MACROPHAGES previously reported as: 8 % Performed By: #### L 350.1000, L200.0200, M100.2000, M100.2900, M100.4001 ####[facility] [address] [place], [address] MESOTHELIAL 4 [facility] Comment on above: Order Comment: The r eference interval(s) and other method performancespecifications are unavailable for this body fluid.Comparison of the result with concentration in the blood,serum, or plasma is recommended.THORA Result Comment: AMENDED REPORT 07/02/25924 MESOTHELIAL previously reported as: 9 % Performed By: #### L 350.1000, L200.0200, M100.2000, M100.2900, M100.4001 ####[facility] [address] [place], [address] MONO/BF 4 [facility] Comment on above: Order Comment: The r eference interval(s) and other method performancespecifications are unavailable for this body fluid.Comparison of the result with concentration in the blood,serum, or plasma is recommended.THORA Result Comment: AMENDED REPORT 07/02/25924 MONO/BF previously reported as: 6 % Performed By: #### L 350.1000, L200.0200, M100.2000, M100.2900, M100.4001 ####[facility] [address] [place], [address] PMN 57 [facility] Comment on above: Order Comment: The r eference interval(s) and other method performancespecifications are unavailable for this body fluid.Comparison of the result with concentration in the blood,serum, or plasma is recommended.THORA Result Comment: AMENDED REPORT 07/02/25923 PMN previously reported as: 73 % Performed By: #### L 350.1000, L200.0200, M100.2000, M100.2900, M100.4001 ####[facility] [address] [place], [address] CALCIUM, IONIZEDon CALCIUM IONIZED 4.6 mg/dL Normal 4.5-5.3 [facility] Comment on above: Order Comment: Serum , non-CRRT source. Performed By: #### 4 5190 ####[facility] [address] [place] [address] Milton Hinojosa M.D. [id number] CALCIUM IONIZED 4.8 mg/dL Normal 4.5-5.3 [facility] Comment on above: Order Comment: Serum , non-CRRT source. Performed By: #### 4 5190 ####[facility] [address] [place] [address] Milton Hinojosa M.D. [id number] CALCIUM IONIZED 4.7 mg/dL Normal 4.5-5.3 [facility] Comment on above: Performed By: #### 4 5190 ####[facility] [address] [place], [place] [address] Milton Hinojosa M.D. [id number] CALCIUM IONIZED 4.4 mg/dL Low 4.5-5.3 [facility] Comment on above: Order Comment: Serum , non-CRRT source. Performed By: #### 4 5190 ####[facility] [address] [place], [place] [address] Milton Hinojosa M.D. [id number] CBCon 07-02-2025 AUTO NRBC 0.0 % Normal [facility] Comment on above: Performed By: #### 4 5235 ####[facility] [address] [place], [place] [address] Milton Hinojosa M.D. [id number] AUTO NRBC ABS COUNT 0.00 K/mcL Normal 0.00-0.00 [facility] Comment on above: Performed By: #### 4 5218 ####[facility] [address] [place], [place] [address] Milton Hinojosa M.D. [id number] Erythrocyte distribution width (RBC) [Ratio] 16.5 % High 11.6-14.8 [facility] Comment on above: Performed By: #### 4 5218 ####[facility] [address] [place] [address] Milton Hinojosa M.D. [id number] Hematocrit (Bld) [Volume fraction] 34.2 % Low 36.0-46.0 [facility] Comment on above: Performed By: #### 4 5218 ####[facility] [address] [place] [address] Milton Hinojosa M.D. [id number] Hemoglobin (Bld) [Mass/Vol] 10.8 g/dL Low 12.0-16.0 [facility] Comment on above: Performed By: #### 4 5218 ####[facility] [address] [place], [place] [address] Milton Hinojosa M.D. [id number] MCH (RBC) [Entitic mass] 28.8 pg Normal 26.0-34.0 [facility] Comment on above: Performed By: #### 4 5218 ####[facility] [address] [place], [place] [address] Milton Hinojosa M.D. [id number] MCV (RBC) [Entitic vol] 91.2 fL Normal 80.0-100.0 [facility] Comment on above: Performed By: #### 4 5218 ####[facility] [address] [place], [place] [address] Milton Hinojosa M.D. [id number] MEAN CORPUSCULAR HEMOGLOBIN CONC 31.6 g/dL Normal 31.0-37.0 [facility] Comment on above: Performed By: #### 4 5218 ####[facility] [address] [place] [address] 73283 Milton Hinojosa M.D. [id number] Platelet mean volume (Bld) [Entitic vol] 10.6 fL Normal 9.4-12.4 [facility] Comment on above: Performed By: #### 4 5218 ####[facility] [address] [place] [address] 82806 Milton Hinojosa M.D. [id number] Platelets (Bld) [#/Vol] 151 10*3/uL Normal 150-400 [facility] Comment on above: Performed By: #### 4 5218 ####[facility] [address] [place] [address] 37800 Milton Hinojosa M.D. [id number] RBC (Bld) [#/Vol] 3.75 10*6/uL Low 4.00-5.20 [facility] Comment on above: Performed By: #### 4 5218 ####[facility] [address] [place] [address] 51804 Milton Hinojosa M.D. [id number] WBC (Bld) [#/Vol] 14.39 10*3/uL High 4.50-11.00 [facility] Comment on above: Performed By: #### 4 5218 ####[facility] [address] [place] [address] 94150 Milton Hinojosa M.D. [id number] CBC W/Diff, Automatedon 06-15 Absolute Neut Normal 2.0-7.7 [facility] Comment on above: Result Comment: Canc elled via OM: Order cancelled - Patient discharged Performed By: #### L 500.4050, L100.0100 ####[facility] [address] [place], [address] HCT Normal 37-47 [facility] Comment on above: Result Comment: Canc elled via OM: Order cancelled - Patient discharged Performed By: #### L 500.4050, L100.0100 ####[facility] [address] [place], [address] HGB Normal 12.0-15.0 [facility] Comment on above: Result Comment: Canc elled via OM: Order cancelled - Patient discharged Performed By: #### L 500.4050, L100.0100 ####[facility] [address] [place], [address] MCH Normal 27.0-32.0 [facility] Comment on above: Result Comment: Canc elled via OM: Order cancelled - Patient discharged Performed By: #### L 500.4050, L100.0100 ####[facility] [address] [place], [address] MCHC Normal 32-36 [facility] Comment on above: Result Comment: Canc elled via OM: Order cancelled - Patient discharged Performed By: #### L 500.4050, L100.0100 ####[facility] [address] [place], [address] MCV Normal 81-99 [facility] Comment on above: Result Comment: Canc elled via OM: Order cancelled - Patient discharged Performed By: #### L 500.4050, L100.0100 ####[facility] [address] [place], [address] NEUT% Normal 47-70 [facility] Comment on above: Result Comment: Canc elled via OM: Order cancelled - Patient discharged Performed By: #### L 500.4050, L100.0100 ####[facility] [address] [place], [address] PLT Normal 150-450 [facility] Comment on above: Result Comment: Canc elled via OM: Order cancelled - Patient discharged Performed By: #### L 500.4050, L100.0100 ####[facility] [address] [place], [address] RBC Normal 4.2-5.4 [facility] Comment on above: Result Comment: Canc elled via OM: Order cancelled - Patient discharged Performed By: #### L 500.4050, L100.0100 ####[facility] [address] [place], [address] RDW CV Normal 11.6-14.6 [facility] Comment on above: Result Comment: Canc elled via OM: Order cancelled - Patient discharged Performed By: #### L 500.4050, L100.0100 ####[facility] [address] [place], [address] RDW SD Normal 35.1-43.9 [facility] Comment on above: Result Comment: Canc elled via OM: Order cancelled - Patient discharged Performed By: #### L 500.4050, L100.0100 ####[facility] [address] [place], [address] WBC Normal 4.4-11.0 [facility] Comment on above: Result Comment: Canc elled via OM: Order cancelled - Patient discharged Performed By: #### L 500.4050, L100.0100 ####[facility] [address] [place], [address] CONSULTon 07-02-2025 CONSULT Normal [facility] CPKon 07-02-2025 CPK 19 U/L Low 40-170 [facility] Comment on above: Performed By: #### 4 8261 ####[facility] [address] [place], [place] [address] Milton Hinojosa M.D. [id number] Comprehensive Metabolic Prof ilon 07-02-2025 ALB Normal 3.4-4.8 [facility] Comment on above: Result Comment: Canc elled via OM: Order cancelled - Patient discharged Performed By: #### L 500.4050, L100.0100 ####[facility] [address] [place], [address] ALK PHOS Normal 35-104 [facility] Comment on above: Result Comment: Canc elled via OM: Order cancelled - Patient discharged Performed By: #### L 500.4050, L100.0100 ####[facility] [address] [place], [address] ALT Normal <=34 [facility] Comment on above: Result Comment: Canc elled via OM: Order cancelled - Patient discharged Performed By: #### L 500.4050, L100.0100 ####[facility] [address] [place], [address] AST Normal <=31 [facility] Comment on above: Result Comment: Canc elled via OM: Order cancelled - Patient discharged Performed By: #### L 500.4050, L100.0100 ####[facility] [address] [place], [address] BUN Normal 4-19 [facility] Comment on above: Result Comment: Canc elled via OM: Order cancelled - Patient discharged Performed By: #### L 500.4050, L100.0100 ####[facility] [address] [place], [address] BUN/CRE Normal 10-20 [facility] Comment on above: Result Comment: Canc elled via OM: Order cancelled - Patient discharged Performed By: #### L 500.4050, L100.0100 ####[facility] [address] [place], [address] Calcium Normal 7.6-11.0 [facility] Comment on above: Result Comment: Canc elled via OM: Order cancelled - Patient discharged Performed By: #### L 500.4050, L100.0100 ####[facility] [address] [place], [address] CL Normal 98-108 [facility] Comment on above: Result Comment: Canc elled via OM: Order cancelled - Patient discharged Performed By: #### L 500.4050, L100.0100 ####[facility] [address] [place], [address] CO2 Normal 21.0-32.0 [facility] Comment on above: Result Comment: Canc elled via OM: Order cancelled - Patient discharged Performed By: #### L 500.4050, L100.0100 ####[facility] [address] [place], [address] CREAT,SERUM Normal 0.70-1.20 [facility] Comment on above: Result Comment: Canc elled via OM: Order cancelled - Patient discharged Performed By: #### L 500.4050, L100.0100 ####[facility] [address] [place], [address] eGFR Normal >60 [facility] Comment on above: Result Comment: Canc elled via OM: Order cancelled - Patient discharged Performed By: #### L 500.4050, L100.0100 ####[facility] [address] [place], [address] GAP Normal 5-15 [facility] Comment on above: Result Comment: Canc elled via OM: Order cancelled - Patient discharged Performed By: #### L 500.4050, L100.0100 ####[facility] [address] [place], [address] GLU Normal 70-99 [facility] Comment on above: Result Comment: Canc elled via OM: Order cancelled - Patient discharged Performed By: #### L 500.4050, L100.0100 ####[facility] [address] [place], [address] Potassium Normal 3.3-5.1 [facility] Comment on above: Result Comment: Canc elled via OM: Order cancelled - Patient discharged Performed By: #### L 500.4050, L100.0100 ####[facility] [address] [place], [address] T BILI Normal 0.00-1.30 [facility] Comment on above: Result Comment: Canc elled via OM: Order cancelled - Patient discharged Performed By: #### L 500.4050, L100.0100 ####[facility] [address] [place], [address] T PROT Normal 5.9-8.4 [facility] Comment on above: Result Comment: Canc elled via OM: Order cancelled - Patient discharged Performed By: #### L 500.4050, L100.0100 ####[facility] [address] [place], [address] Comprehensive Metabolic Profil Normal 133-145 [facility] Comment on above: Result Comment: Canc elled via OM: Order cancelled - Patient discharged Performed By: #### L 500.4050, L100.0100 ####[facility] [address] [place], [address] Culture, Blood (WB)on 2024 CUB Normal [facility] Comment on above: Performed By: #### M 200.1000 ####[facility] [address] [place], [address] HEPATIC FUNCTION PANELon Albumin [Mass/Vol] 3.1 g/dL Low 3.2-5.2 [place] Comment on above: Performed By: #### 4 5866 ####[facility] [address] Milton Hinojosa M.D. [id number] Order Comment: [facility] has implemented the eGFR calculation approach that does not have a coefficient for race that conforms to the NKF-ASN Task Force Recommendations. Performed By: #### 4 6449 ####[facility] [address] [place] [address] Milton Hinojosa M.D. [id number] ALP [Catalytic activity/Vol] 149 U/L Normal 40-150 [facility] Comment on above: Performed By: #### 4 5866 ####[facility] [address] [place] [address] Milton Hinojosa M.D. [id number] ALT [Catalytic activity/Vol] 30 U/L Normal 0-35 U/L [facility] Comment on above: Performed By: #### 4 5866 ####[facility] [address] [place] [address] Milton Hinojosa M.D. [id number] AST [Catalytic activity/Vol] 27 U/L Normal 0-35 U/L [facility] Comment on above: Performed By: #### 4 5866 ####[facility] [address] [place] [address] Milton Hinojosa M.D. [id number] Bilirubin [Mass/Vol] 0.7 mg/dL Normal 0.0-1.3 [facility] Comment on above: Performed By: #### 4 5866 ####[facility] [address] [place] [address] Milton Hinojosa M.D. [id number] Bilirubin.indirect [Mass/Vol] 0.5 mg/dL High 0.0-0.4 [facility] Comment on above: Performed By: #### 4 5866 ####[facility] [address] [place] [address] Milton Hinojosa M.D. [id number] Protein [Mass/Vol] 6.2 g/dL Normal 6.0-8.0 [place] Comment on above: Performed By: #### 4 5866 ####[facility] [address] [place] [address] Milton Hinojosa M.D. [id number] MAGNESIUM LEVELon 07-02-2025 Magnesium [Mass/Vol] 2.3 mg/dL Normal 1.6-2.4 [facility] Comment on above: Performed By: #### 4 6109 ####[facility] [address] [place] [address] Milton Hinojosa M.D. [id number] Magnesium [Mass/Vol] 2.3 mg/dL Normal 1.6-2.4 [facility] Comment on above: Performed By: #### 4 6109 ####[facility] [address] [place] [address] Milton Hinojosa M.D. [id number] Magnesium [Mass/Vol] 2.3 mg/dL Normal 1.6-2.4 [facility] Comment on above: Performed By: #### 4 6109 ####[facility] [address] [place], [place] [address] Milton Hinojosa M.D. [id number] Magnesium [Mass/Vol] 2.3 mg/dL Normal 1.6-2.4 [facility] Comment on above: Performed By: #### 4 6109 ####[facility] [address] [place] [address] Milton Hinojosa M.D. [id number] POC GLUCOSE [facility] 025 Glucose [Mass/Vol] 107 mg/dL High 65-99 [place] Comment on above: Performed By: #### 4 6910 ####[facility] [address] [place] [address] [id number] [facility] Glucose [Mass/Vol] 111 mg/dL High 65- [place] Comment on above: Performed By: #### 4 6932 ####[facility] [address] [place] [address] [id number] [facility] Glucose [Mass/Vol] 110 mg/dL High 65- [place] Comment on above: Performed By: #### 4 6932 ####[facility] [address] [place] [address] [id number] [facility] Glucose [Mass/Vol] 124 mg/dL High 65- [place] Comment on above: Performed By: #### 4 6932 ####[facility] [address] [place] [address] [id number] [facility] Glucose [Mass/Vol] 128 mg/dL High 65- [place] Comment on above: Performed By: #### 4 6932 ####[facility] [address] [place] [address] [id number] [facility] Glucose [Mass/Vol] 130 mg/dL High 65- [place] Comment on above: Performed By: #### 4 6932 ####[facility] [address] [place] [address] [id number] [facility] RENAL FUNCTION PANELon 07-02 Albumin [Mass/Vol] 3.1 g/dL Low 3.2-5.2 [place] Comment on above: Order Comment: [facility] has implemented the eGFR calculation approach that does not have a coefficient for race that conforms to the NKF-ASN Task Force Recommendations. Performed By: #### 4 6449 ####[facility] [address] [place] [address] Milton Hionjosa M.D. [id number] Anion gap [Moles/Vol] 18 mmol/L Normal 10-20 [facility] Comment on above: Order Comment: [facility] has implemented the eGFR calculation approach that does not have a coefficient for race that conforms to the NKF-ASN Task Force Recommendations. Performed By: #### 4 6449 ####[facility] [address] [place] [address] Milton Hinojosa M.D. [id number] Calcium [Mass/Vol] 8.4 mg/dL Normal 8.4-10.2 [place] Comment on above: Order Comment: [facility] has implemented the eGFR calculation approach that does not have a coefficient for race that conforms to the NKF-ASN Task Force Recommendations. Performed By: #### 4 6449 ####[facility] [address] [place] [address] Milton Hinojosa M.D. [id number] Chloride [Moles/Vol] 102 mmol/L Normal 98-108 [facility] Comment on above: Order Comment: [facility] has implemented the eGFR calculation approach that does not have a coefficient for race that conforms to the NKF-ASN Task Force Recommendations. Performed By: #### 4 6449 ####[facility] [address] [place] [address] Milton Hinojosa M.D. [id number] Creatinine [Mass/Vol] 1.70 mg/dL High 0.60-1.20 [facility] Comment on above: Order Comment: [facility] has implemented the eGFR calculation approach that does not have a coefficient for race that conforms to the NKF-ASN Task Force Recommendations. Performed By: #### 4 6449 ####[facility] [address] [place] [address] Milton Hinojosa M.D. [id number] EGFR 31 mL/min/1.73 m2 Low >=60 [facility] Comment on above: Order Comment: [facility] has implemented the eGFR calculation approach that does not have a coefficient for race that conforms to the NKF-ASN Task Force Recommendations. Result Comment: Lalita mated GFR was calculated using the 2020 CKD-EPI creatinine equation. Performed By: #### 4 6449 ####[facility] [address] [place] [address] Milton Hinojosa M.D. [id number] Glucose [Mass/Vol] 120 mg/dL High 65-99 [place] Comment on above: Order Comment: [facility] has implemented the eGFR calculation approach that does not have a coefficient for race that conforms to the NKF-ASN Task Force Recommendations. Performed By: #### 4 6449 ####[facility] [address] [place], [place] [address] Milton Hinojosa M.D. [id number] HCO3 (Bld) [Moles/Vol] 20 mmol/L Low 21-32 [facility] Comment on above: Order Comment: [facility] has implemented the eGFR calculation approach that does not have a coefficient for race that conforms to the NKF-ASN Task Force Recommendations. Performed By: #### 4 6449 ####[facility] [address] [place], [place] [address] Milton Hinojosa M.D. [id number] Phosphate [Mass/Vol] 2.9 mg/dL Normal 2.8-4.1 [facility] Comment on above: Order Comment: [facility] has implemented the eGFR calculation approach that does not have a coefficient for race that conforms to the NKF-ASN Task Force Recommendations. Performed By: #### 4 6449 ####[facility] [address] [place] [address] Milton Hinojosa M.D. [id number] Potassium [Moles/Vol] 4.2 mmol/L Normal 3.5-5.1 [facility] Comment on above: Order Comment: [facility] has implemented the eGFR calculation approach that does not have a coefficient for race that conforms to the NKF-ASN Task Force Recommendations. Performed By: #### 4 6449 ####[facility] [address] [place] [address] Milton Hinojosa M.D. [id number] Sodium [Moles/Vol] 136 mmol/L Normal 135-145 [place] Comment on above: Order Comment: [facility] has implemented the eGFR calculation approach that does not have a coefficient for race that conforms to the NKF-ASN Task Force Recommendations. Performed By: #### 4 6449 ####[facility] [address] [place], [place] [address] Milton Hinojosa M.D. [id number] Urea nitrogen [Mass/Vol] 19 mg/dL Normal 8-25 [facility] Comment on above: Order Comment: [facility] has implemented the eGFR calculation approach that does not have a coefficient for race that conforms to the NKF-ASN Task Force Recommendations. Performed By: #### 4 6449 ####[facility] [address] [place], [place] [address] Milton Hinojosa M.D. [id number] Urea nitrogen/Creatinine [Mass ratio] 11.2 mg/mg Normal 10.0-20.0 [facility] Comment on above: Order Comment: [facility] has implemented the eGFR calculation approach that does not have a coefficient for race that conforms to the NKF-ASN Task Force Recommendations. Performed By: #### 4 6449 ####[facility] [address] [place], [place] [address] Milton Hinojosa M.D. [id number] Anion gap [Moles/Vol] 18 mmol/L Normal 10-20 [facility] Comment on above: Order Comment: [facility] has implemented the eGFR calculation approach that does not have a coefficient for race that conforms to the NKF-ASN Task Force Recommendations. Performed By: #### 4 6449 ####[facility] [address] [place], [place] [address] Milton Hinojosa M.D. [id number] Calcium [Mass/Vol] 8.7 mg/dL Normal 8.4-10.2 [place] Comment on above: Order Comment: [facility] has implemented the eGFR calculation approach that does not have a coefficient for race that conforms to the NKF-ASN Task Force Recommendations. Performed By: #### 4 6449 ####[facility] [address] [place] [address] iMlton Hinojosa M.D. [id number] Chloride [Moles/Vol] 101 mmol/L Normal 98-108 [facility] Comment on above: Order Comment: [facility] has implemented the eGFR calculation approach that does not have a coefficient for race that conforms to the NKF-ASN Task Force Recommendations. Performed By: #### 4 6449 ####[facility] [address] [place] [address] Milton Hinojosa M.D. [id number] Creatinine [Mass/Vol] 2.21 mg/dL High 0.60-1.20 [facility] Comment on above: Order Comment: [facility] has implemented the eGFR calculation approach that does not have a coefficient for race that conforms to the NKF-ASN Task Force Recommendations. Performed By: #### 4 6449 ####[facility] [address] [place] [address] Milton Hinojosa M.D. [id number] EGFR 23 mL/min/1.73 m2 Low >=60 [facility] Comment on above: Order Comment: [facility] has implemented the eGFR calculation approach that does not have a coefficient for race that conforms to the NKF-ASN Task Force Recommendations. Result Comment: Lalita mated GFR was calculated using the 2020 CKD-EPI creatinine equation. Performed By: #### 4 6449 ####[facility] [address] [place] [address] Milton Hinojosa M.D. [id number] Glucose [Mass/Vol] 140 mg/dL High 65-99 [place] Comment on above: Order Comment: [facility] has implemented the eGFR calculation approach that does not have a coefficient for race that conforms to the NKF-ASN Task Force Recommendations. Performed By: #### 4 6449 ####[facility] [address] [place] [address] Milton Hinojosa M.D. [id number] HCO3 (Bld) [Moles/Vol] 24 mmol/L Normal 21-32 [facility] Comment on above: Order Comment: [facility] has implemented the eGFR calculation approach that does not have a coefficient for race that conforms to the NKF-ASN Task Force Recommendations. Performed By: #### 4 6449 ####[facility] [address] [place] [address] Milton Hinojosa M.D. [id number] Phosphate [Mass/Vol] 2.4 mg/dL Low 2.8-4.1 [facility] Comment on above: Order Comment: [facility] has implemented the eGFR calculation approach that does not have a coefficient for race that conforms to the NKF-ASN Task Force Recommendations. Performed By: #### 4 6449 ####[facility] [address] [place] [address] Milton Hinojosa M.D. [id number] Potassium [Moles/Vol] 4.5 mmol/L Normal 3.5-5.1 [facility] Comment on above: Order Comment: [facility] has implemented the eGFR calculation approach that does not have a coefficient for race that conforms to the NKF-ASN Task Force Recommendations. Performed By: #### 4 6449 ####[facility] [address] [place] [address] Milton Hinojosa M.D. [id number] Sodium [Moles/Vol] 138 mmol/L Normal 135-145 [place] Comment on above: Order Comment: [facility] has implemented the eGFR calculation approach that does not have a coefficient for race that conforms to the NKF-ASN Task Force Recommendations. Performed By: #### 4 6449 ####[facility] [address] [place] [address] Milton Hinojosa M.D. [id number] Urea nitrogen [Mass/Vol] 24 mg/dL Normal 8-25 [facility] Comment on above: Order Comment: [facility] has implemented the eGFR calculation approach that does not have a coefficient for race that conforms to the NKF-ASN Task Force Recommendations. Performed By: #### 4 6449 ####[facility] [address] [place], [place] [address] Milton Hinojosa M.D. [id number] Urea nitrogen/Creatinine [Mass ratio] 10.9 mg/mg Normal 10.0-20.0 [facility] Comment on above: Order Comment: [facility] has implemented the eGFR calculation approach that does not have a coefficient for race that conforms to the NKF-ASN Task Force Recommendations. Performed By: #### 4 6449 ####[facility] [address] [place], [place] [address] Milton Hinojosa M.D. [id number] Albumin [Mass/Vol] 2.9 g/dL Low 3.2-5.2 [place] Comment on above: Order Comment: [facility] has implemented the eGFR calculation approach that does not have a coefficient for race that conforms to the NKF-ASN Task Force Recommendations. Performed By: #### 4 6449 ####[facility] [address] [place] [address] Milton Hinojosa M.D. [id number] Anion gap [Moles/Vol] 16 mmol/L Normal 10-20 [facility] Comment on above: Order Comment: [facility] has implemented the eGFR calculation approach that does not have a coefficient for race that conforms to the NKF-ASN Task Force Recommendations. Performed By: #### 4 6449 ####[facility] [address] [place] [address] Milton Hinojosa M.D. [id number] Calcium [Mass/Vol] 8.6 mg/dL Normal 8.4-10.2 [place] Comment on above: Order Comment: [facility] has implemented the eGFR calculation approach that does not have a coefficient for race that conforms to the NKF-ASN Task Force Recommendations. Performed By: #### 4 6449 ####[facility] [address] [place], [place] [address] Milton Hinojosa M.D. [id number] Chloride [Moles/Vol] 102 mmol/L Normal 98-108 [facility] Comment on above: Order Comment: [facility] has implemented the eGFR calculation approach that does not have a coefficient for race that conforms to the NKF-ASN Task Force Recommendations. Performed By: #### 4 6449 ####[facility] [address] [place], [place] [address] Milton Hinojosa M.D. [id number] Creatinine [Mass/Vol] 2.37 mg/dL High 0.60-1.20 [facility] Comment on above: Order Comment: [facility] has implemented the eGFR calculation approach that does not have a coefficient for race that conforms to the NKF-ASN Task Force Recommendations. Performed By: #### 4 6449 ####[facility] [address] [place] [address] Milton Hinojosa M.D. [id number] EGFR 21 mL/min/1.73 m2 Low >=60 [facility] Comment on above: Order Comment: [facility] has implemented the eGFR calculation approach that does not have a coefficient for race that conforms to the NKF-ASN Task Force Recommendations. Result Comment: Lalita mated GFR was calculated using the 2020 CKD-EPI creatinine equation. Performed By: #### 4 6449 ####[facility] [address] [place], [place] [address] Milton Hinojosa M.D. [id number] Glucose [Mass/Vol] 136 mg/dL High 65-99 [place] Comment on above: Order Comment: [facility] has implemented the eGFR calculation approach that does not have a coefficient for race that conforms to the NKF-ASN Task Force Recommendations. Performed By: #### 4 6449 ####[facility] [address] [place], [place] [address] Milton Hinojosa M.D. [id number] HCO3 (Bld) [Moles/Vol] 24 mmol/L Normal 21-32 [facility] Comment on above: Order Comment: [facility] has implemented the eGFR calculation approach that does not have a coefficient for race that conforms to the NKF-ASN Task Force Recommendations. Performed By: #### 4 6449 ####[facility] [address] [place], [place] [address] Milton Hinojosa M.D. [id number] Phosphate [Mass/Vol] 2.5 mg/dL Low 2.8-4.1 [facility] Comment on above: Order Comment: [facility] has implemented the eGFR calculation approach that does not have a coefficient for race that conforms to the NKF-ASN Task Force Recommendations. Performed By: #### 4 6449 ####[facility] [address] [place], [place] [address] Milton Hinojosa M.D. [id number] Potassium [Moles/Vol] 4.4 mmol/L Normal 3.5-5.1 [facility] Comment on above: Order Comment: [facility] has implemented the eGFR calculation approach that does not have a coefficient for race that conforms to the NKF-ASN Task Force Recommendations. Performed By: #### 4 6449 ####[facility] [address] [place] [address] Milton Hinojosa M.D. [id number] Sodium [Moles/Vol] 138 mmol/L Normal 135-145 [place] Comment on above: Order Comment: [facility] has implemented the eGFR calculation approach that does not have a coefficient for race that conforms to the NKF-ASN Task Force Recommendations. Performed By: #### 4 6449 ####[facility] [address] [place] [address] Milton Hinojosa M.D. [id number] Urea nitrogen [Mass/Vol] 28 mg/dL High 8-25 [facility] Comment on above: Order Comment: [facility] has implemented the eGFR calculation approach that does not have a coefficient for race that conforms to the NKF-ASN Task Force Recommendations. Performed By: #### 4 6449 ####[facility] [address] [place] [address]15 Milton Hinojosa M.D. [id number] Urea nitrogen/Creatinine [Mass ratio] 11.8 mg/mg Normal 10.0-20.0 [facility] Comment on above: Order Comment: [facility] has implemented the eGFR calculation approach that does not have a coefficient for race that conforms to the NKF-ASN Task Force Recommendations. Performed By: #### 4 6449 ####[facility] [address] [place] [address] Milton Hinojosa M.D. [id number] Albumin [Mass/Vol] 3.1 g/dL Low 3.2-5.2 [place] Comment on above: Order Comment: [facility] has implemented the eGFR calculation approach that does not have a coefficient for race that conforms to the NKF-ASN Task Force Recommendations. Performed By: #### 4 6449 ####[facility] [address] [place] [address] Milton Hinojosa M.D. [id number] Anion gap [Moles/Vol] 18 mmol/L Normal 10-20 [facility] Comment on above: Order Comment: [facility] has implemented the eGFR calculation approach that does not have a coefficient for race that conforms to the NKF-ASN Task Force Recommendations. Performed By: #### 4 6449 ####[facility] [address] [place] [address] Milton Hinojosa M.D. [id number] Calcium [Mass/Vol] 8.1 mg/dL Low 8.4-10.2 [place] Comment on above: Order Comment: [facility] has implemented the eGFR calculation approach that does not have a coefficient for race that conforms to the NKF-ASN Task Force Recommendations. Performed By: #### 4 6449 ####[facility] [address] [place], [place] [address] Milton Hinojosa M.D. [id number] Chloride [Moles/Vol] 102 mmol/L Normal 98-108 [facility] Comment on above: Order Comment: [facility] has implemented the eGFR calculation approach that does not have a coefficient for race that conforms to the NKF-ASN Task Force Recommendations. Performed By: #### 4 6449 ####[facility] [address] [place], [place] [address] Milton Hinojosa M.D. [id number] Creatinine [Mass/Vol] 2.72 mg/dL High 0.60-1.20 [facility] Comment on above: Order Comment: [facility] has implemented the eGFR calculation approach that does not have a coefficient for race that conforms to the NKF-ASN Task Force Recommendations. Performed By: #### 4 6449 ####[facility] [address] [place] [address] Milton Hinojosa M.D. [id number] EGFR 18 mL/min/1.73 m2 Low >=60 [facility] Comment on above: Order Comment: [facility] has implemented the eGFR calculation approach that does not have a coefficient for race that conforms to the NKF-ASN Task Force Recommendations. Result Comment: Lalita mated GFR was calculated using the 2020 CKD-EPI creatinine equation. Performed By: #### 4 6449 ####[facility] [address] [place], [place] [address] Milton Hinojosa M.D. [id number] Glucose [Mass/Vol] 116 mg/dL High 65-99 [place] Comment on above: Order Comment: [facility] has implemented the eGFR calculation approach that does not have a coefficient for race that conforms to the NKF-ASN Task Force Recommendations. Performed By: #### 4 6449 ####[facility] [address] [place] [address] Milton Hinojosa M.D. [id number] HCO3 (Bld) [Moles/Vol] 23 mmol/L Normal 21-32 [facility] Comment on above: Order Comment: [facility] has implemented the eGFR calculation approach that does not have a coefficient for race that conforms to the NKF-ASN Task Force Recommendations. Performed By: #### 4 6449 ####[facility] [address] [place] [address] Milton Hinojosa M.D. [id number] Phosphate [Mass/Vol] 2.8 mg/dL Normal 2.8-4.1 [facility] Comment on above: Order Comment: [facility] has implemented the eGFR calculation approach that does not have a coefficient for race that conforms to the NKF-ASN Task Force Recommendations. Performed By: #### 4 6449 ####[facility] [address] [place] [address] Milton Hinojosa M.D. [id number] Potassium [Moles/Vol] 4.4 mmol/L Normal 3.5-5.1 [facility] Comment on above: Order Comment: [facility] has implemented the eGFR calculation approach that does not have a coefficient for race that conforms to the NKF-ASN Task Force Recommendations. Performed By: #### 4 6449 ####[facility] [address] [place] [address] Milton Hinojosa M.D. [id number] Sodium [Moles/Vol] 139 mmol/L Normal 135-145 [place] Comment on above: Order Comment: [facility] has implemented the eGFR calculation approach that does not have a coefficient for race that conforms to the NKF-ASN Task Force Recommendations. Performed By: #### 4 6449 ####[facility] [address] [place] [address] Milton Hinojosa M.D. [id number] Urea nitrogen [Mass/Vol] 32 mg/dL High 8-25 [facility] Comment on above: Order Comment: [facility] has implemented the eGFR calculation approach that does not have a coefficient for race that conforms to the NKF-ASN Task Force Recommendations. Performed By: #### 4 6449 ####[facility] [address] [place], [place] [address] Milton Hinojosa M.D. [id number] Urea nitrogen/Creatinine [Mass ratio] 11.8 mg/mg Normal 10.0-20.0 [facility] Comment on above: Order Comment: [facility] has implemented the eGFR calculation approach that does not have a coefficient for race that conforms to the NKF-ASN Task Force Recommendations. Performed By: #### 4 6449 ####[facility] [address] [place], [place] [address] Milton Hinojosa M.D. [id number] US DUPLEX VENOUS ARMS BILATE RALon 07-02-2025 DUPLEX VENOUS ARMS BILATERAL Normal [facility] DUPLEX VENOUS ARMS BILATERAL Normal [facility] DUPLEX VENOUS LEGS BILATE RALon 07-02-2025 DUPLEX VENOUS LEGS BILATERAL Normal [facility] DUPLEX VENOUS LEGS BILATERAL Normal [facility] VANCOMYCIN LEVEL, RANDOMon 0 07-02-2025 VANCOMYCIN RANDOM 17.1 mcg/mL Normal [place] Comment on above: Order Comment: As of 08/2022 vancomycin dosing for [facility] [place] inpatients will be done by Bayesian dosing software rather than off traditional trough values. Please contact the site specific inpatient pharmacy before making dose changes off of trough values alone for admitted patients.No established reference range. Performed By: #### 4 6651 ####[facility] [address] [place], [place] [address] Milton Hinojosa M.D. [id number] XR FOOT LEFT 2 VIEWSon 07-02 XR FOOT LEFT 2 VIEWS Normal [facility] Comment on above: Order Comment: Injur y/Trauma or Illness?:Illness/OtherHow long have you had these symptoms (acute/chronic)?:UnknownReason for exam?:wound 4th metatarsal, eval for free air/osteoHistory of cancer?:unkSurgeries, chemotherapy, or radiation?:unkType of Exam?:UnknownAdditional signs and symptoms?:wound 4th metatarsal, eval for free air/osteo pH, Body Fluid [id number] 07-02 PH, BODY FLUID 7.6 Normal Not Estab. [facility] Comment on above: Order Comment: Test( s) [id number], Body Fluidwas developed and its performance characteristicsdetermined by [employer]. It has not been cleared or approvedby the Food and Drug Administration. Result Comment: The reference interval(s) and other method performance specificationshave not been established for this body fluid. The test result must beintegrated into the clinical context for interpretation.Performed at: [address] [id number] Director: Jono Toscano MD, Phone: [phone] Performed By: #### L 3800.0400 ####[facility] [address] [place], [address] APTT HEPARIN COVERAGEon 06-15 aPTT Coag (Bld) [Time] 69 s High 23-34 [facility] Comment on above: Order Comment: Thera peutic range for APTT's is 68 - 104 seconds Performed By: #### 4 6848 ####[facility] [place], [place] [address] Milton Hinojosa M.D. [id number] aPTT Coag (Bld) [Time] 86 s High 23-34 [facility] Comment on above: Order Comment: Thera peutic range for APTT's is 68 - 104 seconds Result Comment: Resu lts checked. Performed By: #### 4 6848 ####[facility] [address] [place] [address] Milton Hinojosa M.D. [id number] BASIC METABOLIC PANELon 08-1 Anion gap [Moles/Vol] 21 mmol/L High 10-20 [facility] Comment on above: Order Comment: [facility] has implemented the eGFR calculation approach that does not have a coefficient for race that conforms to the NKF-ASN Task Force Recommendations. Performed By: #### 4 6124 ####[facility] [address] [place] [address] Milton Hinojosa M.D. [id number] Calcium [Mass/Vol] 8.4 mg/dL Normal 8.4-10.2 [place] Comment on above: Order Comment: [facility] has implemented the eGFR calculation approach that does not have a coefficient for race that conforms to the NKF-ASN Task Force Recommendations. Performed By: #### 4 6124 ####[facility] [address] [place] [address] Milton Hinojosa M.D. [id number] Chloride [Moles/Vol] 101 mmol/L Normal 98-108 [facility] Comment on above: Order Comment: [facility] has implemented the eGFR calculation approach that does not have a coefficient for race that conforms to the NKF-ASN Task Force Recommendations. Performed By: #### 4 6124 ####[facility] [address] [place] [address] Milton Hinojosa M.D. [id number] Creatinine [Mass/Vol] 4.32 mg/dL High 0.60-1.20 [facility] Comment on above: Order Comment: [facility] has implemented the eGFR calculation approach that does not have a coefficient for race that conforms to the NKF-ASN Task Force Recommendations. Performed By: #### 4 6124 ####[facility] [address] [place] [address] Milton Hinojosa M.D. [id number] EGFR 10 mL/min/1.73 m2 Low >=60 [facility] Comment on above: Order Comment: [facility] has implemented the eGFR calculation approach that does not have a coefficient for race that conforms to the NKF-ASN Task Force Recommendations. Result Comment: Lalita mated GFR was calculated using the 2020 CKD-EPI creatinine equation. Performed By: #### 4 6124 ####[facility] [address] [place] [address] Milton Hinojosa M.D. [id number] Glucose [Mass/Vol] 92 mg/dL Normal 65-99 [place] Comment on above: Order Comment: [facility] has implemented the eGFR calculation approach that does not have a coefficient for race that conforms to the NKF-ASN Task Force Recommendations. Performed By: #### 4 6124 ####[facility] [address] [place] [address] Milton Hinojosa M.D. [id number] HCO3 (Bld) [Moles/Vol] 23 mmol/L Normal 21-32 [facility] Comment on above: Order Comment: [facility] has implemented the eGFR calculation approach that does not have a coefficient for race that conforms to the NKF-ASN Task Force Recommendations. Performed By: #### 4 6124 ####[facility] [address] [place] [address] Milton Hinojosa M.D. [id number] Potassium [Moles/Vol] 4.3 mmol/L Normal 3.5-5.1 [facility] Comment on above: Order Comment: [facility] has implemented the eGFR calculation approach that does not have a coefficient for race that conforms to the NKF-ASN Task Force Recommendations. Performed By: #### 4 6124 ####[facility] [address] [place] [address] Milton Hinojosa M.D. [id number] Sodium [Moles/Vol] 141 mmol/L Normal 135-145 [place] Comment on above: Order Comment: [facility] has implemented the eGFR calculation approach that does not have a coefficient for race that conforms to the NKF-ASN Task Force Recommendations. Performed By: #### 4 6124 ####[facility] [address] [place] [address] Milton Hinojosa M.D. [id number] Urea nitrogen [Mass/Vol] 50 mg/dL High 8-25 [facility] Comment on above: Order Comment: [facility] has implemented the eGFR calculation approach that does not have a coefficient for race that conforms to the NKF-ASN Task Force Recommendations. Performed By: #### 4 6124 ####[facility] [address] [place] [address]9566 Milton Hinojosa M.D. [id number] Urea nitrogen/Creatinine [Mass ratio] 11.6 mg/mg Normal 10.0-20.0 [facility] Comment on above: Order Comment: [facility] has implemented the eGFR calculation approach that does not have a coefficient for race that conforms to the NKF-ASN Task Force Recommendations. Performed By: #### 4 6124 ####[facility] [address] [place] [address] Milton Hinojosa M.D. [id number] CALCIUM, IONIZEDon 5 CALCIUM IONIZED 4.6 mg/dL Normal 4.5-5.3 [facility] Comment on above: Order Comment: Serum , non-CRRT source. Performed By: #### 4 5190 ####[facility] [address] [place] [address] Milton Hinojosa M.D. [id number] CALCIUM IONIZED 4.4 mg/dL Low 4.5-5.3 [facility] Comment on above: Order Comment: Serum , non-CRRT source. Performed By: #### 4 5190 ####[facility] [address] [place], [place] [address] Milton Hinojosa M.D. [id number] CALCIUM IONIZED 4.6 mg/dL Normal 4.5-5.3 [facility] Comment on above: Performed By: #### 4 5190 ####[facility] [address] [place] [address] Milton Hinojosa M.D. [id number] CBCon 07-01-2025 AUTO NRBC 0.1 % Normal [facility] Comment on above: Performed By: #### 4 5218 ####[facility] [address] [place], [place] [address] Milton Hinojosa M.D. [id number] AUTO NRBC ABS COUNT 0.02 K/mcL High 0.00-0.00 [facility] Comment on above: Performed By: #### 4 5218 ####[facility] [address] [place], [place] [address] Milton Hinojosa M.D. [id number] Erythrocyte distribution width (RBC) [Ratio] 16.5 % High 11.6-14.8 [facility] Comment on above: Performed By: #### 4 5218 ####[facility] [address] [place], [place] [address] Milton Hinojosa M.D. [id number] Hematocrit (Bld) [Volume fraction] 34.3 % Low 36.0-46.0 [facility] Comment on above: Performed By: #### 4 5218 ####[facility] [address] [place], [place] [address] Milton Hinojosa M.D. [id number] Hemoglobin (Bld) [Mass/Vol] 10.8 g/dL Low 12.0-16.0 [facility] Comment on above: Performed By: #### 4 5218 ####[facility] [address] [place] [address] Milton Hinojosa M.D. [id number] MCH (RBC) [Entitic mass] 28.6 pg Normal 26.0-34.0 [facility] Comment on above: Performed By: #### 4 5218 ####[facility] [address] [place] [address] Milton Hinojosa M.D. [id number] MCV (RBC) [Entitic vol] 90.7 fL Normal 80.0-100.0 [facility] Comment on above: Performed By: #### 4 5218 ####[facility] [address] [place] [address] Milton Hinojosa M.D. [id number] MEAN CORPUSCULAR HEMOGLOBIN CONC 31.5 g/dL Normal 31.0-37.0 [facility] Comment on above: Performed By: #### 4 5218 ####[facility] [address] [place], [place] [address] Milton Hinojosa M.D. [id number] Platelet mean volume (Bld) [Entitic vol] 10.8 fL Normal 9.4-12.4 [facility] Comment on above: Performed By: #### 4 5218 ####[facility] [address] [place], [place] [address] Milton Hinojosa M.D. [id number] Platelets (Bld) [#/Vol] 124 10*3/uL Low 150-400 [facility] Comment on above: Performed By: #### 4 5218 ####[facility] [address] [place], [place] [address] Milton Hinojosa M.D. [id number] RBC (Bld) [#/Vol] 3.78 10*6/uL Low 4.00-5.20 [facility] Comment on above: Performed By: #### 4 5218 ####[facility] [address] [place], [place] [address] Milton Hinojosa M.D. [id number] WBC (Bld) [#/Vol] 13.61 10*3/uL High 4.50-11.00 [facility] Comment on above: Performed By: #### 4 5218 ####[facility] [address] [place] [address] Milton Hinojosa M.D. [id number] CBC W/Diff, Automatedon 06-15 Absolute Neut Normal 2.0-7.7 [facility] Comment on above: Result Comment: Canc elled via OM: Order cancelled - Patient discharged Performed By: #### L 500.4050, L100.0100 ####[facility] [address] [place], [address] HCT Normal 37-47 [facility] Comment on above: Result Comment: Canc elled via OM: Order cancelled - Patient discharged Performed By: #### L 500.4050, L100.0100 ####[facility] [address] [place], [address] HGB Normal 12.0-15.0 [facility] Comment on above: Result Comment: Canc elled via OM: Order cancelled - Patient discharged Performed By: #### L 500.4050, L100.0100 ####[facility] [address] [place], [address] MCH Normal 27.0-32.0 [facility] Comment on above: Result Comment: Canc elled via OM: Order cancelled - Patient discharged Performed By: #### L 500.4050, L100.0100 ####[facility] [address] [place], [address] MCHC Normal 32-36 [facility] Comment on above: Result Comment: Canc elled via OM: Order cancelled - Patient discharged Performed By: #### L 500.4050, L100.0100 ####[facility] [address] [place], [address] MCV Normal 81-99 [facility] Comment on above: Result Comment: Canc elled via OM: Order cancelled - Patient discharged Performed By: #### L 500.4050, L100.0100 ####[facility] [address] [place], [address] NEUT% Normal 47-70 [facility] Comment on above: Result Comment: Canc elled via OM: Order cancelled - Patient discharged Performed By: #### L 500.4050, L100.0100 ####[facility] [address] [place], [address] PLT Normal 150-450 [facility] Comment on above: Result Comment: Canc elled via OM: Order cancelled - Patient discharged Performed By: #### L 500.4050, L100.0100 ####[facility] [address] [place], [address] RBC Normal 4.2-5.4 [facility] Comment on above: Result Comment: Canc elled via OM: Order cancelled - Patient discharged Performed By: #### L 500.4050, L100.0100 ####[facility] [address] [place], [address] RDW CV Normal 11.6-14.6 [facility] Comment on above: Result Comment: Canc elled via OM: Order cancelled - Patient discharged Performed By: #### L 500.4050, L100.0100 ####[facility] [address] [place], [address] RDW SD Normal 35.1-43.9 [facility] Comment on above: Result Comment: Canc elled via OM: Order cancelled - Patient discharged Performed By: #### L 500.4050, L100.0100 ####[facility] [address] [place], [address] WBC Normal 4.4-11.0 [facility] Comment on above: Result Comment: Canc elled via OM: Order cancelled - Patient discharged Performed By: #### L 500.4050, L100.0100 ####[facility] [address] [place], [address] CONSULTon 07-01-2025 CONSULT Palliative care consult acknowledged; our team with reach out to discuss and to assist with GOC needs tomorrow. Please call with any urgent needs. Chayo Mcfarland, DO AUTHENTICATED BY CHAYO MCFARLAND, ON 07/01/2025 14:39:52 Normal [facility] Comprehensive Metabolic Prof ilon 07-01-2025 ALB Normal 3.4-4.8 [facility] Comment on above: Result Comment: Canc elled via OM: Order cancelled - Patient discharged Performed By: #### L 500.4050, L100.0100 ####[facility] [address] [place], [address] ALK PHOS Normal 35-104 [facility] Comment on above: Result Comment: Canc elled via OM: Order cancelled - Patient discharged Performed By: #### L 500.4050, L100.0100 ####[facility] [address] [place], [address] ALT Normal <=34 [facility] Comment on above: Result Comment: Canc elled via OM: Order cancelled - Patient discharged Performed By: #### L 500.4050, L100.0100 ####[facility] [address] [place], [address] AST Normal <=31 [facility] Comment on above: Result Comment: Canc elled via OM: Order cancelled - Patient discharged Performed By: #### L 500.4050, L100.0100 ####[facility] [address] [place], [address] BUN Normal 4-19 [facility] Comment on above: Result Comment: Canc elled via OM: Order cancelled - Patient discharged Performed By: #### L 500.4050, L100.0100 ####[facility] [address] [place], [address] BUN/CRE Normal 10-20 [facility] Comment on above: Result Comment: Canc elled via OM: Order cancelled - Patient discharged Performed By: #### L 500.4050, L100.0100 ####[facility] [address] [place], [address] Calcium Normal 7.6-11.0 [facility] Comment on above: Result Comment: Canc elled via OM: Order cancelled - Patient discharged Performed By: #### L 500.4050, L100.0100 ####[facility] [address] [place], [address] CL Normal 98-108 [facility] Comment on above: Result Comment: Canc elled via OM: Order cancelled - Patient discharged Performed By: #### L 500.4050, L100.0100 ####[facility] [address] [place], [address] CO2 Normal 21.0-32.0 [facility] Comment on above: Result Comment: Canc elled via OM: Order cancelled - Patient discharged Performed By: #### L 500.4050, L100.0100 ####[facility] [address] [place], [address] CREAT,SERUM Normal 0.70-1.20 [facility] Comment on above: Result Comment: Canc elled via OM: Order cancelled - Patient discharged Performed By: #### L 500.4050, L100.0100 ####[facility] [address] [place], [address] eGFR Normal >60 [facility] Comment on above: Result Comment: Canc elled via OM: Order cancelled - Patient discharged Performed By: #### L 500.4050, L100.0100 ####[facility] [address] [place], [address] GAP Normal 5-15 [facility] Comment on above: Result Comment: Canc elled via OM: Order cancelled - Patient discharged Performed By: #### L 500.4050, L100.0100 ####[facility] [address] [place], [address] GLU Normal 70-99 [facility] Comment on above: Result Comment: Canc elled via OM: Order cancelled - Patient discharged Performed By: #### L 500.4050, L100.0100 ####[facility] [address] [place], [address] Potassium Normal 3.3-5.1 [facility] Comment on above: Result Comment: Canc elled via OM: Order cancelled - Patient discharged Performed By: #### L 500.4050, L100.0100 ####[facility] [address] [place], [address] T BILI Normal 0.00-1.30 [facility] Comment on above: Result Comment: Canc elled via OM: Order cancelled - Patient discharged Performed By: #### L 500.4050, L100.0100 ####[facility] [address] [place], [address] T PROT Normal 5.9-8.4 [facility] Comment on above: Result Comment: Canc elled via OM: Order cancelled - Patient discharged Performed By: #### L 500.4050, L100.0100 ####[facility] [address] [place], [address] Comprehensive Metabolic Profil Normal 133-145 [facility] Comment on above: Result Comment: Canc elled via OM: Order cancelled - Patient discharged Performed By: #### L 500.4050, L100.0100 ####[facility] [address] [place], [address] Culture, Anaerobic Any Sourc cecil 07-01-2025 CUAN CATH TIP No anaerobic bacteria isolated. Normal [facility] Comment on above: Performed By: #### M 100.3000, M100.2000, M100.4001 ####[facility] [address] [place], [address] MAGNESIUM LEVELon 07-01-2025 Magnesium [Mass/Vol] 2.2 mg/dL Normal 1.6-2.4 [facility] Comment on above: Performed By: #### 4 6109 ####[facility] [address] [place], [place] [address] Milton Hinojosa M.D. [id number] Magnesium [Mass/Vol] 2.1 mg/dL Normal 1.6-2.4 [facility] Comment on above: Performed By: #### 4 6109 ####[facility] [address] [place], [place] [address] Milton Hinojosa M.D. [id number] Magnesium [Mass/Vol] 2.1 mg/dL Normal 1.6-2.4 [facility] Comment on above: Performed By: #### 4 6109 ####[facility] [address] [place], [place] [address] Milton Hinojosa M.D. [id number] PHOSPHORUSon 07-01-2025 Phosphate [Mass/Vol] 4.2 mg/dL High 2.8-4.1 [facility] Comment on above: Performed By: #### 4 6299 ####[facility] [address] [place], [place] [address] Milton Hinojosa M.D. [id number] POC GLUCOSE - [facility] 025 Glucose [Mass/Vol] 113 mg/dL High 65-99 [place] Comment on above: Performed By: #### 4 6932 ####[facility] [address] [place] [address] [id number] [facility] Glucose [Mass/Vol] 111 mg/dL High 65-99 [place] Comment on above: Performed By: #### 4 6932 ####[facility] [address] [place] [address] [id number] [facility] Glucose [Mass/Vol] 99 mg/dL Normal 65-99 [place] Comment on above: Performed By: #### 4 6932 ####[facility] [address] [place] [address] [id number] [facility] Glucose [Mass/Vol] 94 mg/dL Normal 65-99 [place] Comment on above: Performed By: #### 4 6932 ####[facility] [address] [place] [address] [id number] [facility] Glucose [Mass/Vol] 104 mg/dL High 65-99 [place] Comment on above: Performed By: #### 4 6932 ####[facility] [address] [place] [address] [id number] [facility] Glucose [Mass/Vol] 93 mg/dL Normal 65-99 [place] Comment on above: Performed By: #### 4 6932 ####[facility] [address] [place] [address] [id number] [facility] RENAL FUNCTION PANELon 07-01 Albumin [Mass/Vol] 2.8 g/dL Low 3.2-5.2 [place] Comment on above: Order Comment: [facility] has implemented the eGFR calculation approach that does not have a coefficient for race that conforms to the NKF-ASN Task Force Recommendations. Performed By: #### 4 6449 ####[facility] [address] [place] [address] Milton Hinojosa M.D. [id number] Anion gap [Moles/Vol] 18 mmol/L Normal 10-20 [facility] Comment on above: Order Comment: [facility] has implemented the eGFR calculation approach that does not have a coefficient for race that conforms to the NKF-ASN Task Force Recommendations. Performed By: #### 4 6449 ####[facility] [address] [place] [address] Milton Hinojosa M.D. [id number] Calcium [Mass/Vol] 8.3 mg/dL Low 8.4-10.2 [place] Comment on above: Order Comment: [facility] has implemented the eGFR calculation approach that does not have a coefficient for race that conforms to the NKF-ASN Task Force Recommendations. Performed By: #### 4 6449 ####[facility] [address] [place], [place] [address] Milton Hinojosa M.D. [id number] Chloride [Moles/Vol] 103 mmol/L Normal 98-108 [facility] Comment on above: Order Comment: [facility] has implemented the eGFR calculation approach that does not have a coefficient for race that conforms to the NKF-ASN Task Force Recommendations. Performed By: #### 4 6449 ####[facility] [address] [place], [place] [address] Milton Hinojosa M.D. [id number] Creatinine [Mass/Vol] 3.63 mg/dL High 0.60-1.20 [facility] Comment on above: Order Comment: [facility] has implemented the eGFR calculation approach that does not have a coefficient for race that conforms to the NKF-ASN Task Force Recommendations. Performed By: #### 4 6449 ####[facility] [address] [place], [place] [address] Milton Hinojosa M.D. [id number] EGFR 13 mL/min/1.73 m2 Low >=60 [facility] Comment on above: Order Comment: [facility] has implemented the eGFR calculation approach that does not have a coefficient for race that conforms to the NKF-ASN Task Force Recommendations. Result Comment: Lalita mated GFR was calculated using the 2020 CKD-EPI creatinine equation. Performed By: #### 4 6449 ####[facility] [address] [place], [place] [address] Milton Hinojosa M.D. [id number] Glucose [Mass/Vol] 105 mg/dL High 65-99 [place] Comment on above: Order Comment: [facility] has implemented the eGFR calculation approach that does not have a coefficient for race that conforms to the NKF-ASN Task Force Recommendations. Performed By: #### 4 6449 ####[facility] [address] [place], [place] [address] Milton Hinojosa M.D. [id number] HCO3 (Bld) [Moles/Vol] 24 mmol/L Normal 21-32 [facility] Comment on above: Order Comment: [facility] has implemented the eGFR calculation approach that does not have a coefficient for race that conforms to the NKF-ASN Task Force Recommendations. Performed By: #### 4 6449 ####[facility] [address] [place] [address] Milton Hinojosa M.D. [id number] Phosphate [Mass/Vol] 3.6 mg/dL Normal 2.8-4.1 [facility] Comment on above: Order Comment: [facility] has implemented the eGFR calculation approach that does not have a coefficient for race that conforms to the NKF-ASN Task Force Recommendations. Performed By: #### 4 6449 ####[facility] [address] [place], [place] [address] Milton Hinojosa M.D. [id number] Potassium [Moles/Vol] 4.2 mmol/L Normal 3.5-5.1 [facility] Comment on above: Order Comment: [facility] has implemented the eGFR calculation approach that does not have a coefficient for race that conforms to the NKF-ASN Task Force Recommendations. Performed By: #### 4 6449 ####[facility] [address] [place] [address] Milton Hinojosa M.D. [id number] Sodium [Moles/Vol] 141 mmol/L Normal 135-145 [place] Comment on above: Order Comment: [facility] has implemented the eGFR calculation approach that does not have a coefficient for race that conforms to the NKF-ASN Task Force Recommendations. Performed By: #### 4 6449 ####[facility] [address] [place] [address] Milton Hinojosa M.D. [id number] Urea nitrogen [Mass/Vol] 41 mg/dL High 8-25 [facility] Comment on above: Order Comment: [facility] has implemented the eGFR calculation approach that does not have a coefficient for race that conforms to the NKF-ASN Task Force Recommendations. Performed By: #### 4 6449 ####[facility] [address] [place] [address] Milton Hinojosa M.D. [id number] Urea nitrogen/Creatinine [Mass ratio] 11.3 mg/mg Normal 10.0-20.0 [facility] Comment on above: Order Comment: [facility] has implemented the eGFR calculation approach that does not have a coefficient for race that conforms to the NKF-ASN Task Force Recommendations. Performed By: #### 4 6449 ####[facility] [address] [place] [address] Milton Hinojosa M.D. [id number] Albumin [Mass/Vol] 3.0 g/dL Low 3.2-5.2 [place] Comment on above: Order Comment: [facility] has implemented the eGFR calculation approach that does not have a coefficient for race that conforms to the NKF-ASN Task Force Recommendations. Performed By: #### 4 6449 ####[facility] [address] [place] [address] Milton Hinojosa M.D. [id number] Anion gap [Moles/Vol] 22 mmol/L High 10-20 [facility] Comment on above: Order Comment: [facility] has implemented the eGFR calculation approach that does not have a coefficient for race that conforms to the NKF-ASN Task Force Recommendations. Performed By: #### 4 6449 ####[facility] [address] [place] [address] Milton Hinojosa M.D. [id number] Calcium [Mass/Vol] 8.1 mg/dL Low 8.4-10.2 [place] Comment on above: Order Comment: [facility] has implemented the eGFR calculation approach that does not have a coefficient for race that conforms to the NKF-ASN Task Force Recommendations. Performed By: #### 4 6449 ####[facility] [address] [place] [address] Milton Hinojosa M.D. [id number] Chloride [Moles/Vol] 101 mmol/L Normal 98-108 [facility] Comment on above: Order Comment: [facility] has implemented the eGFR calculation approach that does not have a coefficient for race that conforms to the NKF-ASN Task Force Recommendations. Performed By: #### 4 6449 ####[facility] [address] [place] [address] Milton Hinojosa M.D. [id number] Creatinine [Mass/Vol] 4.75 mg/dL High 0.60-1.20 [facility] Comment on above: Order Comment: [facility] has implemented the eGFR calculation approach that does not have a coefficient for race that conforms to the NKF-ASN Task Force Recommendations. Performed By: #### 4 6449 ####[facility] [address] [place], [place] [address] Milton Hinojosa M.D. [id number] EGFR 9 mL/min/1.73 m2 Low >=60 [facility] Comment on above: Order Comment: [facility] has implemented the eGFR calculation approach that does not have a coefficient for race that conforms to the NKF-ASN Task Force Recommendations. Result Comment: Lalita mated GFR was calculated using the 2020 CKD-EPI creatinine equation. Performed By: #### 4 6449 ####[facility] [address] [place], [place] [address] Milton Hinojosa M.D. [id number] Glucose [Mass/Vol] 88 mg/dL Normal 65-99 [place] Comment on above: Order Comment: [facility] has implemented the eGFR calculation approach that does not have a coefficient for race that conforms to the NKF-ASN Task Force Recommendations. Performed By: #### 4 6449 ####[facility] [address] [place], [place] [address] Milton Hinojosa M.D. [id number] HCO3 (Bld) [Moles/Vol] 22 mmol/L Normal 21-32 [facility] Comment on above: Order Comment: [facility] has implemented the eGFR calculation approach that does not have a coefficient for race that conforms to the NKF-ASN Task Force Recommendations. Performed By: #### 4 6449 ####[facility] [address] [place], [place] [address] Milton Hinojosa M.D. [id number] Phosphate [Mass/Vol] 4.5 mg/dL High 2.8-4.1 [facility] Comment on above: Order Comment: [facility] has implemented the eGFR calculation approach that does not have a coefficient for race that conforms to the NKF-ASN Task Force Recommendations. Performed By: #### 4 6449 ####[facility] [address] [place], [place] [address] Milton Hinojosa M.D. [id number] Potassium [Moles/Vol] 4.3 mmol/L Normal 3.5-5.1 [facility] Comment on above: Order Comment: [facility] has implemented the eGFR calculation approach that does not have a coefficient for race that conforms to the NKF-ASN Task Force Recommendations. Performed By: #### 4 6449 ####[facility] [address] [place] [address] Milton Hinojosa M.D. [id number] Sodium [Moles/Vol] 141 mmol/L Normal 135-145 [place] Comment on above: Order Comment: [facility] has implemented the eGFR calculation approach that does not have a coefficient for race that conforms to the NKF-ASN Task Force Recommendations. Performed By: #### 4 6449 ####[facility] [address] [place] [address] Milton Hinojosa M.D. [id number] Urea nitrogen [Mass/Vol] 54 mg/dL High 8-25 [facility] Comment on above: Order Comment: [facility] has implemented the eGFR calculation approach that does not have a coefficient for race that conforms to the NKF-ASN Task Force Recommendations. Performed By: #### 4 6449 ####[facility] [address] [place] [address] Milton Hinojosa M.D. [id number] Urea nitrogen/Creatinine [Mass ratio] 11.4 mg/mg Normal 10.0-20.0 [facility] Comment on above: Order Comment: [facility] has implemented the eGFR calculation approach that does not have a coefficient for race that conforms to the NKF-ASN Task Force Recommendations. Performed By: #### 4 6449 ####[facility] [address] [place] [address] Milton Hinojosa M.D. [id number] VANCOMYCIN LEVEL, RANDOMon 0 - VANCOMYCIN RANDOM 29.7 mcg/mL Normal [place] Comment on above: Order Comment: As of 08/2022 vancomycin dosing for [facility] inpatients will be done by Bayesian dosing software rather than off traditional trough values. Please contact the site specific inpatient pharmacy before making dose changes off of trough values alone for admitted patients.No established reference range. Performed By: #### 4 6651 ####[facility] [address] [place] [address] Milton Hinojosa M.D. [id number] APTT HEPARIN COVERAGEon 06-15 aPTT Coag (Bld) [Time] 60 s High 23-34 [facility] Comment on above: Order Comment: Thera peutic range for APTT's is 68 - 104 seconds Result Comment: Resu lts checked. Performed By: #### 4 6848 ####[facility] [address] [place] [address] Milton Hinojosa M.D. [id number] aPTT Coag (Bld) [Time] 187 s Off scale high 23-34 [facility] Comment on above: Order Comment: Thera peutic range for APTT's is 68 - 104 secondsResults checked. Performed By: #### 4 6848 ####[facility] [address] [place] [address] Milton Hinojosa M.D. [id number] aPTT Coag (Bld) [Time] 58 s High [address] Comment on above: Order Comment: Thera peutic range for APTT's is 68 - 104 seconds Result Comment: Resu lts checked. Performed By: #### 4 6848 ####[facility] [address] [place], [place] [address] Milton Hinojosa M.D. [id number] BASIC METABOLIC PANELon 06-15 Anion gap [Moles/Vol] 28 mmol/L High 10-20 [facility] Comment on above: Order Comment: [facility] has implemented the eGFR calculation approach that does not have a coefficient for race that conforms to the NKF-ASN Task Force Recommendations. Performed By: #### 4 6124 ####[facility] [address] [place] [address] Milton Hinojosa M.D. [id number] Calcium [Mass/Vol] 8.1 mg/dL Low 8.4-10.2 [place] Comment on above: Order Comment: [facility] has implemented the eGFR calculation approach that does not have a coefficient for race that conforms to the NKF-ASN Task Force Recommendations. Performed By: #### 4 6124 ####[facility] [address] [place] [address] Milton Hinojosa M.D. [id number] Chloride [Moles/Vol] 99 mmol/L Normal 98-108 [facility] Comment on above: Order Comment: [facility] has implemented the eGFR calculation approach that does not have a coefficient for race that conforms to the NKF-ASN Task Force Recommendations. Performed By: #### 4 6124 ####[facility] [address] [place] [address] Milton Hinojosa M.D. [id number] Creatinine [Mass/Vol] 6.70 mg/dL High 0.60-1.20 [facility] Comment on above: Order Comment: [facility] has implemented the eGFR calculation approach that does not have a coefficient for race that conforms to the NKF-ASN Task Force Recommendations. Performed By: #### 4 6124 ####[facility] [address] [place] [address]861 Milton Hinojosa M.D. [id number] EGFR 6 mL/min/1.73 m2 Low >=60 [facility] Comment on above: Order Comment: [facility] has implemented the eGFR calculation approach that does not have a coefficient for race that conforms to the NKF-ASN Task Force Recommendations. Result Comment: Lalita mated GFR was calculated using the 2020 CKD-EPI creatinine equation. Performed By: #### 4 6178 ####[facility] [address] [place] [address]69 Milton Hinojosa M.D. [id number] Glucose [Mass/Vol] 107 mg/dL High 65-99 [place] Comment on above: Order Comment: [facility] has implemented the eGFR calculation approach that does not have a coefficient for race that conforms to the NKF-ASN Task Force Recommendations. Performed By: #### 4 6124 ####[facility] [address] [place], [place] [address] Milton Hinojosa M.D. [id number] HCO3 (Bld) [Moles/Vol] 13 mmol/L Low 21-32 [facility] Comment on above: Order Comment: [facility] has implemented the eGFR calculation approach that does not have a coefficient for race that conforms to the NKF-ASN Task Force Recommendations. Performed By: #### 4 6124 ####[facility] [address] [place], [place] [address] Milton Hinojosa M.D. [id number] Potassium [Moles/Vol] 4.5 mmol/L Normal 3.5-5.1 [facility] Comment on above: Order Comment: [facility] has implemented the eGFR calculation approach that does not have a coefficient for race that conforms to the NKF-ASN Task Force Recommendations. Result Comment: Slig htly Hemolyzed Performed By: #### 4 6124 ####[facility] [address] [place], [place] [address] Milton Hinojosa M.D. [id number] Sodium [Moles/Vol] 135 mmol/L Normal 135-145 [place] Comment on above: Order Comment: [facility] has implemented the eGFR calculation approach that does not have a coefficient for race that conforms to the NKF-ASN Task Force Recommendations. Performed By: #### 4 6124 ####[facility] [address] [place], [place] [address] Milton Hinojosa M.D. [id number] Urea nitrogen [Mass/Vol] 90 mg/dL High 8-25 [facility] Comment on above: Order Comment: [facility] has implemented the eGFR calculation approach that does not have a coefficient for race that conforms to the NKF-ASN Task Force Recommendations. Performed By: #### 4 6124 ####[facility] [address] [place], [place] [address] Milton Hinojosa M.D. [id number] Urea nitrogen/Creatinine [Mass ratio] 13.4 mg/mg Normal 10.0-20.0 [facility] Comment on above: Order Comment: [facility] has implemented the eGFR calculation approach that does not have a coefficient for race that conforms to the NKF-ASN Task Force Recommendations. Performed By: #### 4 6124 ####[facility] [address] [place], [place] [address] Milton Hinojosa M.D. [id number] CALCIUM, IONIZEDon 5 CALCIUM IONIZED 4.3 mg/dL Low 4.5-5.3 [facility] Comment on above: Performed By: #### 4 5190 ####[facility] [address] [place], [place] [address] Milton Hinojosa M.D. [id number] CBCon 06-30-2025 AUTO NRBC 0.3 % Normal [facility] Comment on above: Performed By: #### 4 5218 ####[facility] [address] [place] [address] 86371 Milton Hinojosa M.D. [id number] AUTO NRBC ABS COUNT 0.03 K/mcL High 0.00-0.00 [facility] Comment on above: Performed By: #### 4 5218 ####[facility] [address] [place], [place] [address] Milton Hinojosa M.D. [id number] Erythrocyte distribution width (RBC) [Ratio] 16.7 % High 11.6-14.8 [facility] Comment on above: Performed By: #### 4 5218 ####[facility] [address] [place], [place] [address] Milton Hinojosa M.D. [id number] Hematocrit (Bld) [Volume fraction] 37.4 % Normal 36.0-46.0 [facility] Comment on above: Performed By: #### 4 5218 ####[facility] [address] [place] [address] Milton Hniojosa M.D. [id number] Hemoglobin (Bld) [Mass/Vol] 11.6 g/dL Low 12.0-16.0 [facility] Comment on above: Performed By: #### 4 5218 ####[facility] [address] [place], [place] [address] Milton Hinojosa M.D. [id number] MCH (RBC) [Entitic mass] 28.1 pg Normal 26.0-34.0 [facility] Comment on above: Performed By: #### 4 5218 ####[facility] [address] [place], [place] [address]Zeina Hinojosa M.D. [id number] MCV (RBC) [Entitic vol] 90.6 fL Normal 80.0-100.0 [facility] Comment on above: Performed By: #### 4 5218 ####[facility] [address] [place], [place] [address] Milton Hinojosa M.D. [id number] MEAN CORPUSCULAR HEMOGLOBIN CONC 31.0 g/dL Normal 31.0-37.0 [facility] Comment on above: Performed By: #### 4 5218 ####[facility] [address] [place], [place] [address] Milton Hinojosa M.D. [id number] Platelet mean volume (Bld) [Entitic vol] 10.7 fL Normal 9.4-12.4 [facility] Comment on above: Performed By: #### 4 [id number] ####[facility] [address] [place] [address] 13053 Milton Hinojosa M.D. [id number] Platelets (Bld) [#/Vol] 141 10*3/uL Low 150-400 [facility] Comment on above: Performed By: #### 4 5218 ####[facility] [address] [place] [address] 54561 Milton Hinojosa M.D. [id number] RBC (Bld) [#/Vol] 4.13 10*6/uL Normal 4.00-5.20 [facility] Comment on above: Performed By: #### 4 5218 ####[facility] [address] [place] [address] 08129 Milton Hinojosa M.D. [id number] WBC (Bld) [#/Vol] 11.90 10*3/uL High 4.50-11.00 [facility] Comment on above: Performed By: #### 4 5218 ####[facility] [address] [place] [address] 91107 Milton Hinojosa M.D. [id number] CBC W/Diff, Automatedon 06-15 Absolute Neut Normal 2.0-7.7 [facility] Comment on above: Result Comment: Canc elled via OM: Order cancelled - Patient discharged Performed By: #### L 100.0100, L500.4050 ####[facility] [id number] [place], [address] HCT Normal 37-47 [facility] Comment on above: Result Comment: Canc elled via OM: Order cancelled - Patient discharged Performed By: #### L 100.0100, L500.4050 ####[facility] [address] [place], [address] HGB Normal 12.0-15.0 [facility] Comment on above: Result Comment: Canc elled via OM: Order cancelled - Patient discharged Performed By: #### L 100.0100, L500.4050 ####[facility] [address] [place], [address] MCH Normal 27.0-32.0 [facility] Comment on above: Result Comment: Canc elled via OM: Order cancelled - Patient discharged Performed By: #### L 100.0100, L500.4050 ####[facility] [id number] [place], [address] MCHC Normal 32-36 [facility] Comment on above: Result Comment: Canc elled via OM: Order cancelled - Patient discharged Performed By: #### L 100.0100, L500.4050 ####[facility] [address] [place], [address] MCV Normal 81-99 [facility] Comment on above: Result Comment: Canc elled via OM: Order cancelled - Patient discharged Performed By: #### L 100.0100, L500.4050 ####[facility] [address] [place], [address] NEUT% Normal 47-70 [facility] Comment on above: Result Comment: Canc elled via OM: Order cancelled - Patient discharged Performed By: #### L 100.0100, L500.4050 ####[facility] [address] [place], [address] PLT Normal 150-450 [facility] Comment on above: Result Comment: Canc elled via OM: Order cancelled - Patient discharged Performed By: #### L 100.0100, L500.4050 ####[facility] [address] [place], [address] RBC Normal 4.2-5.4 [facility] Comment on above: Result Comment: Canc elled via OM: Order cancelled - Patient discharged Performed By: #### L 100.0100, L500.4050 ####[facility] [address] [place], [address] RDW CV Normal 11.6-14.6 [facility] Comment on above: Result Comment: Canc elled via OM: Order cancelled - Patient discharged Performed By: #### L 100.0100, L500.4050 ####[facility] [address] [place], [address] RDW SD Normal 35.1-43.9 [facility] Comment on above: Result Comment: Canc elled via OM: Order cancelled - Patient discharged Performed By: #### L 100.0100, L500.4050 ####[facility] [address] [place], [address] WBC Normal 4.4-11.0 [facility] Comment on above: Result Comment: Canc elled via OM: Order cancelled - Patient discharged Performed By: #### L 100.0100, L500.4050 ####[facility] [address] [place], [address] CT CHEST ABDOMEN PELVIS WITH IV CONTRAST ONLYon 06-30-2025 CT CHEST ABDOMEN PELVIS WITH IV CONTRAST ONLY Normal [facility] Comment on above: Order Comment: Injur y/Trauma or Illness?:Illness/OtherSepsisHow long have you had these symptoms (acute/chronic)?:AcuteReason for exam?:SepsisType of Exam?:InitialAdditional signs and symptoms?:Sepsis CT HEAD OR BRAIN WITHOUT CON TRASTon 06-30-2025 CT HEAD OR BRAIN WITHOUT CONTRAST Normal [facility] Comment on above: Order Comment: Injur y/Trauma or Illness?:Illness/OtherMental status change, unknown causeHow long have you had these symptoms (acute/chronic)?:ChronicReason for exam?:Mental status change, unknown causeType of Exam?:Subsequent/Follow-upAdditional signs and symptoms?:Mental status change, unknown cause Comprehensive Metabolic Prof ilon 06-30-2025 ALB Normal 3.4-4.8 [facility] Comment on above: Result Comment: Canc elled via OM: Order cancelled - Patient discharged Performed By: #### L 100.0100, L500.4050 ####[facility] [address] [place], [address] ALK PHOS Normal 35-104 [facility] Comment on above: Result Comment: Canc elled via OM: Order cancelled - Patient discharged Performed By: #### L 100.0100, L500.4050 ####[facility] [address] [place], [address] ALT Normal <=34 [facility] Comment on above: Result Comment: Canc elled via OM: Order cancelled - Patient discharged Performed By: #### L 100.0100, L500.4050 ####[facility] [address] [place], [address] AST Normal <=31 [facility] Comment on above: Result Comment: Canc elled via OM: Order cancelled - Patient discharged Performed By: #### L 100.0100, L500.4050 ####[facility] [address] [place], [address] BUN Normal 4-19 [facility] Comment on above: Result Comment: Canc elled via OM: Order cancelled - Patient discharged Performed By: #### L 100.0100, L500.4050 ####[facility] [address] [place], [address] BUN/CRE Normal 10-20 [facility] Comment on above: Result Comment: Canc elled via OM: Order cancelled - Patient discharged Performed By: #### L 100.0100, L500.4050 ####[facility] [address] [place], [address] Calcium Normal 7.6-11.0 [facility] Comment on above: Result Comment: Canc elled via OM: Order cancelled - Patient discharged Performed By: #### L 100.0100, L500.4050 ####[facility] [address] [place], [address] CL Normal 98-108 [facility] Comment on above: Result Comment: Canc elled via OM: Order cancelled - Patient discharged Performed By: #### L 100.0100, L500.4050 ####[facility] [address] [place], [address] CO2 Normal 21.0-32.0 [facility] Comment on above: Result Comment: Canc elled via OM: Order cancelled - Patient discharged Performed By: #### L 100.0100, L500.4050 ####[facility] [address] [place], [address] CREAT,SERUM Normal 0.70-1.20 [facility] Comment on above: Result Comment: Canc elled via OM: Order cancelled - Patient discharged Performed By: #### L 100.0100, L500.4050 ####[facility] [address] [place], [address] eGFR Normal >60 [facility] Comment on above: Result Comment: Canc elled via OM: Order cancelled - Patient discharged Performed By: #### L 100.0100, L500.4050 ####[facility] [address] [place], [address] GAP Normal 5-15 [facility] Comment on above: Result Comment: Canc elled via OM: Order cancelled - Patient discharged Performed By: #### L 100.0100, L500.4050 ####[facility] [address] [place], [address] GLU Normal 70-99 [facility] Comment on above: Result Comment: Canc elled via OM: Order cancelled - Patient discharged Performed By: #### L 100.0100, L500.4050 ####[facility] [address] [place], [address] Potassium Normal 3.3-5.1 [facility] Comment on above: Result Comment: Canc elled via OM: Order cancelled - Patient discharged Performed By: #### L 100.0100, L500.4050 ####[facility] [address] [place], [address] T BILI Normal 0.00-1.30 [facility] Comment on above: Result Comment: Canc elled via OM: Order cancelled - Patient discharged Performed By: #### L 100.0100, L500.4050 ####[facility] [address] [place], [address] T PROT Normal 5.9-8.4 [facility] Comment on above: Result Comment: Canc elled via OM: Order cancelled - Patient discharged Performed By: #### L 100.0100, L500.4050 ####[facility] [address] [place], [address] Comprehensive Metabolic Profil Normal 133-145 [facility] Comment on above: Result Comment: Canc elled via OM: Order cancelled - Patient discharged Performed By: #### L 100.0100, L500.4050 ####[facility] [address] [place], [address] Culture, Blood (WB)on 2024 CUB Normal [facility] Comment on above: Performed By: #### M 200.1000 ####[facility] [address] [place], [address] MAGNESIUM LEVELon 06-30-2025 Magnesium [Mass/Vol] 2.5 mg/dL High 1.6-2.4 [facility] Comment on above: Performed By: #### 4 6109 ####[facility] [address] [place] [address] Milton Hinojosa M.D. [id number] PHOSPHORUSon 06-30-2025 Phosphate [Mass/Vol] 6.8 mg/dL High 2.8-4.1 [facility] Comment on above: Performed By: #### 4 6299 ####[facility] [address] [place] [address] Milton Hinojosa M.D. [id number] POC GLUCOSE - [facility] 025 Glucose [Mass/Vol] 86 mg/dL Normal 65-99 [place] Comment on above: Performed By: #### 4 6920 ####[facility] [address] [place] [address] [id number] [facility] Glucose [Mass/Vol] 95 mg/dL Normal 65-99 [facility] Comment on above: Performed By: #### 4 4889 ####[facility] [address] [place] [address] [id number] [facility] Glucose [Mass/Vol] 94 mg/dL Normal 65-99 [facility] Comment on above: Performed By: #### 4 8118 ####[facility] [address] [place] [address] [id number] [facility] Glucose [Mass/Vol] 99 mg/dL Normal 65-99 [facility] Comment on above: Performed By: #### 4 6428 ####[facility] [address] [place] [address] [id number] [facility] Glucose [Mass/Vol] 104 mg/dL High 65-99 [facility] Comment on above: Performed By: #### 4 1555 ####[facility] [address] [place] [address] [id number] [facility] Glucose [Mass/Vol] 116 mg/dL High 65-99 [facility] Comment on above: Performed By: #### 4 1514 ####[facility] [address] [place] [address] [id number] [facility] VANCOMYCIN LEVEL, RANDOMon 0 06-30-2025 VANCOMYCIN RANDOM 35.0 mcg/mL [facility] Comment on above: Order Comment: As of 08/2022 vancomycin dosing for [facility] inpatients will be done by Bayesian dosing software rather than off traditional trough values. Please contact the site specific inpatient pharmacy before making dose changes off of trough values alone for admitted patients.No established reference range. Performed By: #### 4 6651 ####[facility] [address] [place] [address] Milton Hinojosa M.D. [id number] XR ABDOMEN /KUB/FLAT PLATE/1 VIEWon 06-30-2025 XR ABDOMEN /KUB/FLAT PLATE/1 VIEW [facility] Comment on above: Order Comment: Injur y/Trauma or Illness?:Illness/OtherHow long have you had these symptoms (acute/chronic)?:UnknownReason for exam?:fem dialysis line placedHistory of cancer?:unkSurgeries, chemotherapy, or radiation?:unkType of Exam?:InitialAdditional signs and symptoms?:. XR CHEST PA/APon 06-30-2025 XR CHEST PA/AP [facility] Comment on above: Order Comment: Injur y/Trauma or Illness?:Illness/OtherHow long have you had these symptoms (acute/chronic)?:UnknownReason for exam?:HD line placementHistory of cancer?:unkSurgeries, chemotherapy, or radiation?:unkType of Exam?:UnknownAdditional signs and symptoms?:. APTT HEPARIN COVERAGEon 06-15 aPTT Coag (Bld) [Time] 77 s High 23-34 [facility] Comment on above: Order Comment: Thera peutic range for APTT's is 68 - 104 seconds Performed By: #### 4 6848 ####[facility] [address] [place] [address] Milton Hinojosa M.D. [id number] aPTT Coag (Bld) [Time] 89 s High 23-34 [facility] Comment on above: Order Comment: Thera peutic range for APTT's is 68 - 104 seconds Performed By: #### 4 6848 ####[facility] [address] [place] [address] Milton Hinojosa M.D. [id number] BASIC METABOLIC PANELon 08- Anion gap [Moles/Vol] 20 mmol/L Normal 10-20 [facility] Comment on above: Order Comment: [facility] has implemented the eGFR calculation approach that does not have a coefficient for race that conforms to the NKF-ASN Task Force Recommendations. Performed By: #### 4 6124 ####[facility] [address] [place] [address] Milton Hinojosa M.D. [id number] Calcium [Mass/Vol] 7.6 mg/dL Low 8.4-10.2 [facility] Comment on above: Order Comment: [facility] has implemented the eGFR calculation approach that does not have a coefficient for race that conforms to the NKF-ASN Task Force Recommendations. Performed By: #### 4 6124 ####[facility] [address] [place] [address] Milton Hinojosa M.D. [id number] Chloride [Moles/Vol] 99 mmol/L Normal 98-108 [facility] Comment on above: Order Comment: [facility] has implemented the eGFR calculation approach that does not have a coefficient for race that conforms to the NKF-ASN Task Force Recommendations. Performed By: #### 4 6124 ####[facility] [address] [place] [address] Milton Hinojosa M.D. [id number] Creatinine [Mass/Vol] 6.37 mg/dL High 0.60-1.20 [facility] Comment on above: Order Comment: [facility] has implemented the eGFR calculation approach that does not have a coefficient for race that conforms to the NKF-ASN Task Force Recommendations. Performed By: #### 4 6162 ####[facility] [address] [place] [address] Milton Hinojosa M.D. [id number] EGFR 6 mL/min/1.73 m2 Low >=60 [facility] Comment on above: Order Comment: [facility] has implemented the eGFR calculation approach that does not have a coefficient for race that conforms to the NKF-ASN Task Force Recommendations. Result Comment: Lalita mated GFR was calculated using the 2020 CKD-EPI creatinine equation. Performed By: #### 4 6124 ####[facility] [address] [place] [address] Milton Hinojosa M.D. [id number] Glucose [Mass/Vol] 195 mg/dL High 65-99 [facility] Comment on above: Order Comment: [facility] has implemented the eGFR calculation approach that does not have a coefficient for race that conforms to the NKF-ASN Task Force Recommendations. Performed By: #### 4 6124 ####[facility] [address] [place], [place] [address] Milton Hinojosa M.D. [id number] HCO3 (Bld) [Moles/Vol] 20 mmol/L Low 21-32 [facility] Comment on above: Order Comment: [facility] has implemented the eGFR calculation approach that does not have a coefficient for race that conforms to the NKF-ASN Task Force Recommendations. Performed By: #### 4 6124 ####[facility] [address] [place] [address] Milton Hinojosa M.D. [id number] Potassium [Moles/Vol] 4.6 mmol/L Normal 3.5-5.1 [facility] Comment on above: Order Comment: [facility] has implemented the eGFR calculation approach that does not have a coefficient for race that conforms to the NKF-ASN Task Force Recommendations. Performed By: #### 4 6124 ####[facility] [address] [place], [place] [address] Milton Hinojosa M.D. [id number] Sodium [Moles/Vol] 134 mmol/L Low 135-145 [facility] Comment on above: Order Comment: [facility] has implemented the eGFR calculation approach that does not have a coefficient for race that conforms to the NKF-ASN Task Force Recommendations. Performed By: #### 4 6124 ####[facility] [address] [place] [address] Milton Hinojosa M.D. [id number] Urea nitrogen [Mass/Vol] 84 mg/dL High 8-25 [facility] Comment on above: Order Comment: [facility] has implemented the eGFR calculation approach that does not have a coefficient for race that conforms to the NKF-ASN Task Force Recommendations. Performed By: #### 4 6124 ####[facility] [address] [place], [place] [address] Milton Hinojosa M.D. [id number] Urea nitrogen/Creatinine [Mass ratio] 13.2 mg/mg Normal 10.0-20.0 [facility] Comment on above: Order Comment: [facility] has implemented the eGFR calculation approach that does not have a coefficient for race that conforms to the NKF-ASN Task Force Recommendations. Performed By: #### 4 6124 ####[facility] [address] [place], [place] [address] Milton Hinojosa M.D. [id number] BLOOD CULTURE AEROBIC/ANAERO BICon 06-29-2025 BLOOD CULTURE AEROBIC/ANAEROBIC BLOOD CULTURE STAPHYLOCOCCUS AUREUS Staphylococcus aureus Sets Positive [2] of [2] See susceptibility from same source/same date. GRAM STAIN RESULT BC Gram Positive Cocci in clusters Previous result called 06/30 @ 0917 Abnormal [facility] Comment on above: Performed By: #### 4 4014 ####[facility] [address] [place] [address] Milton Hinojosa M.D. [id number] BLOOD CULTURE AEROBIC/ANAEROBIC Abnormal Susceptible <=2 mcg/mL, Intermediate >2 mcg/mL, Resistant >=16 mcg/mL [facility] Comment on above: Performed By: #### 4 4014 ####[facility] [address] [place] [address] Milton Hinojosa M.D. [id number] BLOOD CULTURE ID PCRon 06-29 BLOOD CULTURE ID PCR Abnormal Not Detected Ri [facility] Comment on above: Performed By: #### L [id number] ####[facility] [address] [place] [address] Milton Hinojosa M.D. [id number] Body Fluid Culton 06-29-2025 BFC . . Culture exhibits no growth. Normal [facility] Comment on above: Performed By: #### L 350.1000, L200.0200, M100.2000, M100.2900, M100.4001 ####[facility] [address] [place], [address] CALCIUM, IONIZEDon 5 CALCIUM IONIZED 4.5 mg/dL Normal 4.5-5.3 [facility] Comment on above: Performed By: #### 4 5190 ####[facility] [address] [place] [address] Milton Hinojosa M.D. [id number] CBCon 06-29-2025 AUTO NRBC 0.3 % Normal [facility] Comment on above: Performed By: #### 4 5218 ####[facility] [address] [place] [address] Milton Hinojosa M.D. [id number] AUTO NRBC ABS COUNT 0.04 K/mcL High 0.00-0.00 [facility] Comment on above: Performed By: #### 4 5218 ####[facility] [address] [place] [address] Milton Hinojosa M.D. [id number] Erythrocyte distribution width (RBC) [Ratio] 17.1 % High 11.6-14.8 [facility] Comment on above: Performed By: #### 4 5218 ####[facility] [address] [place] [address] Milton Hinojosa M.D. [id number] Hematocrit (Bld) [Volume fraction] 33.7 % Low 36.0-46.0 [facility] Comment on above: Performed By: #### 4 5218 ####[facility] [address] [place] [address] Milton Hinojosa M.D. [id number] Hemoglobin (Bld) [Mass/Vol] 10.8 g/dL Low 12.0-16.0 [facility] Comment on above: Performed By: #### 4 5218 ####[facility] [address] [place] [address] Milton Hinojosa M.D. [id number] MCH (RBC) [Entitic mass] 28.6 pg Normal 26.0-34.0 [facility] Comment on above: Performed By: #### 4 5218 ####[facility] [address] [place], [place] [address] Milton Hinojosa M.D. [id number] MCV (RBC) [Entitic vol] 89.2 fL Normal 80.0-100.0 [facility] Comment on above: Performed By: #### 4 5218 ####[facility] [address] [place], [place] [address] Milton Hinojosa M.D. [id number] MEAN CORPUSCULAR HEMOGLOBIN CONC 32.0 g/dL Normal 31.0-37.0 [facility] Comment on above: Performed By: #### 4 5218 ####[facility] [address] [place], [place] [address] Milton Hinojosa M.D. [id number] Platelet mean volume (Bld) [Entitic vol] 10.2 fL Normal 9.4-12.4 [facility] Comment on above: Performed By: #### 4 5218 ####[facility] [address] [place] [address] Milton Hinojosa M.D. [id number] Platelets (Bld) [#/Vol] 159 10*3/uL Normal 150-400 [facility] Comment on above: Performed By: #### 4 5218 ####[facility] [address] [place] [address] Milton Hinojosa M.D. [id number] RBC (Bld) [#/Vol] 3.78 10*6/uL Low 4.00-5.20 [facility] Comment on above: Performed By: #### 4 5218 ####[facility] [address] [place] [address] Milton Hinojosa M.D. [id number] WBC (Bld) [#/Vol] 15.46 10*3/uL High 4.50-11.00 [facility] Comment on above: Performed By: #### 4 5218 ####[facility] [address] [place] [address] Milton Hinojosa M.D. [id number] CBC W/Diff, Automatedon 08-1 Absolute Neut Normal 2.0-7.7 [facility] Comment on above: Result Comment: Canc elled via OM: Order cancelled - Patient discharged Performed By: #### L 100.0100 ####[facility] [address] [place], [place], [address] Performed By: #### L 100.0100, L500.4050 ####[facility] [address] [place], [address] HCT Normal 37-47 [facility] Comment on above: Result Comment: Canc elled via OM: Order cancelled - Patient discharged Performed By: #### L 100.0100 ####[facility] [address] [place], [address] Performed By: #### L 100.0100, L500.4050 ####[facility] [address] [place], [address] HGB Normal 12.0-15.0 [facility] Comment on above: Result Comment: Canc elled via OM: Order cancelled - Patient discharged Performed By: #### L 100.0100 ####[facility] [address] [place], [address] Performed By: #### L 100.0100, L500.4050 ####[facility] [address] [place], [address] MCH Normal 27.0-32.0 [facility] Comment on above: Result Comment: Canc elled via OM: Order cancelled - Patient discharged Performed By: #### L 100.0100 ####[facility] [address] [place], [address] Performed By: #### L 100.0100, L500.4050 ####[facility] [address] [place], [address] MCHC Normal 32-36 [facility] Comment on above: Result Comment: Canc elled via OM: Order cancelled - Patient discharged Performed By: #### L 100.0100 ####[facility] [address] [place], [address] Performed By: #### L 100.0100, L500.4050 ####[facility] [address] [place], [address] MCV Normal 81-99 [facility] Comment on above: Result Comment: Canc elled via OM: Order cancelled - Patient discharged Performed By: #### L 100.0100 ####[facility] [address] [place], [address] Performed By: #### L 100.0100, L500.4050 ####[facility] [address] [place], [address] NEUT% Normal 47-70 [facility] Comment on above: Result Comment: Canc elled via OM: Order cancelled - Patient discharged Performed By: #### L 100.0100 ####[facility] [address] [place], [address] Performed By: #### L 100.0100, L500.4050 ####[facility] [address] [place], [address] PLT Normal 150-450 [facility] Comment on above: Result Comment: Canc elled via OM: Order cancelled - Patient discharged Performed By: #### L 100.0100 ####[facility] [address] [place], [address] Performed By: #### L 100.0100, L500.4050 ####[facility] [address] [place], [address] RBC Normal 4.2-5.4 [facility] Comment on above: Result Comment: Canc elled via OM: Order cancelled - Patient discharged Performed By: #### L 100.0100 ####[facility] [address] [place], [address] Performed By: #### L 100.0100, L500.4050 ####[facility] [address] [place], [address] RDW CV Normal 11.6-14.6 [facility] Comment on above: Result Comment: Canc elled via OM: Order cancelled - Patient discharged Performed By: #### L 100.0100 ####[facility] [address] [place], [address] Performed By: #### L 100.0100, L500.4050 ####[facility] [address] [place], [address] RDW SD Normal 35.1-43.9 [facility] Comment on above: Result Comment: Canc elled via OM: Order cancelled - Patient discharged Performed By: #### L 100.0100 ####[facility] [address] [place], [address] Performed By: #### L 100.0100, L500.4050 ####[facility] [facility] [address] [place], [address] WBC Normal 4.4-11.0 [facility] Comment on above: Result Comment: Canc elled via OM: Order cancelled - Patient discharged Performed By: #### L 100.0100 ####[facility] [address] [place], [address] Performed By: #### L 100.0100, L500.4050 ####[facility] [address] [place], [address] CONSULTon 06-29-2025 CONSULT Normal [facility] CONSULT Normal [facility] Comprehensive Metabolic Prof ilon 06-29-2025 ALB Normal 3.4-4.8 [facility] Comment on above: Result Comment: Canc elled via OM: Order cancelled - Patient discharged Performed By: #### L 100.0100, L500.4050 ####[facility] [address] [place], [address] ALK PHOS Normal 35-104 [facility] Comment on above: Result Comment: Canc elled via OM: Order cancelled - Patient discharged Performed By: #### L 100.0100, L500.4050 ####[facility] [address] [place], [address] ALT Normal <=34 [facility] Comment on above: Result Comment: Canc elled via OM: Order cancelled - Patient discharged Performed By: #### L 100.0100, L500.4050 ####[facility] [address] [place], [address] AST Normal <=31 [facility] Comment on above: Result Comment: Canc elled via OM: Order cancelled - Patient discharged Performed By: #### L 100.0100, L500.4050 ####[facility] [address] [place], [address] BUN Normal 4-19 [facility] Comment on above: Result Comment: Canc elled via OM: Order cancelled - Patient discharged Performed By: #### L 100.0100, L500.4050 ####[facility] [address] [place], [address] BUN/CRE Normal 10-20 [facility] Comment on above: Result Comment: Canc elled via OM: Order cancelled - Patient discharged Performed By: #### L 100.0100, L500.4050 ####[facility] [address] [place], [address] Calcium Normal 7.6-11.0 [facility] Comment on above: Result Comment: Canc elled via OM: Order cancelled - Patient discharged Performed By: #### L 100.0100, L500.4050 ####[facility] [address] [place], [address] CL Normal 98-108 [facility] Comment on above: Result Comment: Canc elled via OM: Order cancelled - Patient discharged Performed By: #### L 100.0100, L500.4050 ####[facility] [address] [place], [address] CO2 Normal 21.0-32.0 [facility] Comment on above: Result Comment: Canc elled via OM: Order cancelled - Patient discharged Performed By: #### L 100.0100, L500.4050 ####[facility] [address] [place], [address] CREAT,SERUM Normal 0.70-1.20 [facility] Comment on above: Result Comment: Canc elled via OM: Order cancelled - Patient discharged Performed By: #### L 100.0100, L500.4050 ####[facility] [address] [place], [address] eGFR Normal >60 [facility] Comment on above: Result Comment: Canc elled via OM: Order cancelled - Patient discharged Performed By: #### L 100.0100, L500.4050 ####[facility] [address] [place], [address] GAP Normal 5-15 [facility] Comment on above: Result Comment: Canc elled via OM: Order cancelled - Patient discharged Performed By: #### L 100.0100, L500.4050 ####[facility] [address] [place], [address] GLU Normal 70-99 [facility] Comment on above: Result Comment: Canc elled via OM: Order cancelled - Patient discharged Performed By: #### L 100.0100, L500.4050 ####[facility] [address] [place], [address] Potassium Normal 3.3-5.1 [facility] Comment on above: Result Comment: Canc elled via OM: Order cancelled - Patient discharged Performed By: #### L 100.0100, L500.4050 ####[facility] [address] [place], [address] T BILI Normal 0.00-1.30 [facility] Comment on above: Result Comment: Canc elled via OM: Order cancelled - Patient discharged Performed By: #### L 100.0100, L500.4050 ####[facility] [address] [place], [address] T PROT Normal 5.9-8.4 [facility] Comment on above: Result Comment: Canc elled via OM: Order cancelled - Patient discharged Performed By: #### L 100.0100, L500.4050 ####[facility] [address] [place], [address] Comprehensive Metabolic Profil Normal 133-145 [facility] Comment on above: Result Comment: Canc elled via OM: Order cancelled - Patient discharged Performed By: #### L 100.0100, L500.4050 ####[facility] [address] [place], [address] ECHOCARDIOGRAM TRANSESOPHAGE Cuca 06-29-2025 ECHOCARDIOGRAM TRANSESOPHAGEAL Normal [facility] Gram Stainon 06-29-2025 GS . . Gram Stain No organisms seen Normal [facility] Comment on above: Performed By: #### L 350.1000, L200.0200, M100.2000, M100.2900, M100.4001 ####[facility] [address] [place], [address] HEPATITIS B SURFACE ANTIGENo n 06-29-2025 HEPATITIS B SURFACE ANTIGEN Negative Normal Negative [facility] Comment on above: Order Comment: Test performed using Balaji AUDRA immunoassay system Performed By: #### 4 4081 ####[facility] [address] Milton Hinojosa M.D. [id number] MAGNESIUM LEVELon 06-29-2025 Magnesium [Mass/Vol] 2.3 mg/dL Normal 1.6-2.4 [facility] Comment on above: Performed By: #### 4 6109 ####[facility] [address] [place] [address] Milton Hinojosa M.D. [id number] PHOSPHORUSon 06-29-2025 Phosphate [Mass/Vol] 7.1 mg/dL High 2.8-4.1 [facility] Comment on above: Performed By: #### 4 6299 ####[facility] [address] [place] [address] Milton Hinojosa M.D. [id number] POC GLUCOSE - [facility] 025 Glucose [Mass/Vol] 118 mg/dL High [address] [place] [address] Comment on above: Performed By: #### 4 6976 ####[facility] [address] [place] [address] [id number] [facility] Glucose [Mass/Vol] 121 mg/dL [address] Comment on above: Performed By: #### 4 1486 ####[facility] [address] [place] [address] [id number] [facility] Glucose [Mass/Vol] 129 mg/dL High [address] [place] [address] Comment on above: Performed By: #### 4 0238 ####[facility] [address] [place] [address] [id number] [facility] Glucose [Mass/Vol] 129 mg/dL [address] Comment on above: Performed By: #### 4 4942 ####[facility] [address] [place] [address] [id number] [facility] Glucose [Mass/Vol] 144 mg/dL High [address] [place] [address] Comment on above: Performed By: #### 4 1865 ####[facility] [address] [place] [address] [id number] [facility] Glucose [Mass/Vol] 192 mg/dL [address] Comment on above: Performed By: #### 4 6100 ####[facility] [address] [place] [address] [id number] [facility] Glucose [Mass/Vol] 186 mg/dL High 65-99 [place] Comment on above: Performed By: #### 4 6932 ####[facility] [address] [facility] [address] [id number] [facility] Wound Cultureon 06-29-2025 WC [facility] Comment on above: Performed By: #### M 100.3000, M100.2000, M100.4001 ####[facility] [address] [place], [address] XR ABDOMEN /KUB/FLAT PLATE/1 VIEWon 06-29-2025 XR ABDOMEN /KUB/FLAT PLATE/1 VIEW [facility] Comment on above: Order Comment: Injur y/Trauma or Illness?:Illness/OtherHow long have you had these symptoms (acute/chronic)?:UnknownReason for exam?:OG placementHistory of cancer?:unkSurgeries, chemotherapy, or radiation?:unkType of Exam?:OngoingAdditional signs and symptoms?:pain XR CHEST PA/APon 06-29-2025 XR CHEST PA/AP [facility] Comment on above: Order Comment: Injur y/Trauma or Illness?:Illness/OtherHow long have you had these symptoms (acute/chronic)?:UnknownReason for exam?:Respiratory failureHistory of cancer?:unkSurgeries, chemotherapy, or radiation?:unkType of Exam?:UnknownAdditional signs and symptoms?:. Bedside Glucoseon 06-28-2025 FINGERSTICK GLU 182 mg/dL High 74-106 [facility] Comment on above: Result Comment: RONNIE GEMENT OF PATIENT CARE PER NURSING PROTOCOL Performed By: #### L 501.080 ####[facility] [address] [place], [address] FINGERSTICK GLU 215 mg/dL High 74-106 [facility] Comment on above: Result Comment: Dr Jesús ayala FollowedInsulin GivenMANAGEMENT OF PATIENT CARE PER NURSING PROTOCOL Performed By: #### L 501.080 ####[facility] [address] [place], [address] FINGERSTICK GLU 238 mg/dL High 74-106 [facility] Comment on above: Result Comment: RONNIE GEMENT OF PATIENT CARE PER NURSING PROTOCOL Performed By: #### L 501.080 ####[facility] [address] [place], [address] FINGERSTICK GLU 210 mg/dL High 74-106 [facility] Comment on above: Result Comment: RONNIE GEMENT OF PATIENT CARE PER NURSING PROTOCOL Performed By: #### L 501.080 ####[facility] [address] [place], [address] FINGERSTICK GLU 188 mg/dL High 74-106 [facility] Comment on above: Result Comment: RONNIE GEMENT OF PATIENT CARE PER NURSING PROTOCOL Performed By: #### L 501.080 ####[facility] [address] [place], [address] CALCIUM, IONIZEDon 5 CALCIUM IONIZED 4.5 mg/dL Normal 4.5-5.3 [facility] Comment on above: Performed By: #### 4 5190 ####[facility] [address] Milton Hinojosa M.D. [id number] CBC W/Diff, Automatedon 06-15 Absolute Neut Normal 2.0-7.7 [facility] Comment on above: Result Comment: Canc elled via OM: Order cancelled - Patient discharged Performed By: #### L 100.0100 ####[facility] [address] [place], [address] HCT Normal 37-47 [facility] Comment on above: Result Comment: Canc elled via OM: Order cancelled - Patient discharged Performed By: #### L 100.0100 ####[facility] [address] [place], [address] HGB Normal 12.0-15.0 [facility] Comment on above: Result Comment: Canc elled via OM: Order cancelled - Patient discharged Performed By: #### L 100.0100 ####[facility] [address] [place], [address] MCH Normal 27.0-32.0 [facility] Comment on above: Result Comment: Canc elled via OM: Order cancelled - Patient discharged Performed By: #### L 100.0100 ####[facility] [address] [place], [address] MCHC Normal 32-36 [facility] Comment on above: Result Comment: Canc elled via OM: Order cancelled - Patient discharged Performed By: #### L 100.0100 ####[facility] [address] [place], [address] MCV Normal 81-99 [facility] Comment on above: Result Comment: Canc elled via OM: Order cancelled - Patient discharged Performed By: #### L 100.0100 ####[facility] [address] [place], [address] NEUT% Normal 47-70 [facility] Comment on above: Result Comment: Canc elled via OM: Order cancelled - Patient discharged Performed By: #### L 100.0100 ####[facility] [address] [place], [address] PLT Normal 150-450 [facility] Comment on above: Result Comment: Canc elled via OM: Order cancelled - Patient discharged Performed By: #### L 100.0100 ####[facility] [address] [place], [address] RBC Normal 4.2-5.4 [facility] Comment on above: Result Comment: Canc elled via OM: Order cancelled - Patient discharged Performed By: #### L 100.0100 ####[facility] [address] [place], [address] RDW CV Normal 11.6-14.6 [facility] Comment on above: Result Comment: Canc elled via OM: Order cancelled - Patient discharged Performed By: #### L 100.0100 ####[facility] [address] [place], [address] RDW SD Normal 35.1-43.9 [facility] Comment on above: Result Comment: Canc elled via OM: Order cancelled - Patient discharged Performed By: #### L 100.0100 ####[facility] [address] [place], [address] WBC Normal 4.4-11.0 [facility] Comment on above: Result Comment: Canc elled via OM: Order cancelled - Patient discharged Performed By: #### L 100.0100 ####[facility] [address] [place], [address] Absolute Lymph 0.64 X10 3/uL Low 0.83-4.51 [facility] Comment on above: Order Comment: Comme nts: If not done in prior 24 hours Performed By: #### L 300.3900, L300.4310, L100.0100 ####[facility] [address] [place], [address] Absolute Neut 12.7 X10 3/uL High 2.0-7.7 [facility] Comment on above: Order Comment: Comme nts: If not done in prior 24 hours Performed By: #### L 300.3900, L300.4310, L100.0100 ####[facility] [address] [place], [address] Basophils/100 WBC (Bld) 0.1 % Normal 0-1 [facility] Comment on above: Order Comment: Comme nts: If not done in prior 24 hours Performed By: #### L 300.3900, L300.4310, L100.0100 ####[facility] [address] [place], [address] Eosinophils/100 WBC (Bld) 0.0 % Normal 0-5 [facility] Comment on above: Order Comment: Comme nts: If not done in prior 24 hours Performed By: #### L 300.3900, L300.4310, L100.0100 ####[facility] [address] [place], [address] Erythrocyte distribution width (RBC) [Ratio] 16.8 % High 11.6-14.6 [facility] Comment on above: Order Comment: Comme nts: If not done in prior 24 hours Performed By: #### L 300.3900, L300.4310, L100.0100 ####[facility] [address] [place], [address] Hematocrit (Bld) [Volume fraction] 30.8 % Low 37-47 [facility] Comment on above: Order Comment: Comme nts: If not done in prior 24 hours Performed By: #### L 300.3900, L300.4310, L100.0100 ####[facility] [address] [place], [address] Hemoglobin (Bld) [Mass/Vol] 10.5 g/dL Low 12.0-15.0 [facility] Comment on above: Order Comment: Comme nts: If not done in prior 24 hours Performed By: #### L 300.3900, L300.4310, L100.0100 ####[facility] [address] [place], [address] IG% 1.500 High 0.0-0.9 [facility] Comment on above: Order Comment: Comme nts: If not done in prior 24 hours Result Comment: IG% - Immature Granulocytes (promyelocytes, myelocytes andmetamyelocytes) > 1% indicates that a LEFT SHIFT is Present. Performed By: #### L 300.3900, L300.4310, L100.0100 ####[facility] [address] [place], [address] Lymphocytes/100 WBC (Bld) 4.5 % Low 19-41 [facility] Comment on above: Order Comment: Comme nts: If not done in prior 24 hours Performed By: #### L 300.3900, L300.4310, L100.0100 ####[facility] [address] [place], [address] MCH (RBC) [Entitic mass] 29.6 pg Normal 27.0-32.0 [facility] Comment on above: Order Comment: Comme nts: If not done in prior 24 hours Performed By: #### L 300.3900, L300.4310, L100.0100 ####[facility] [address] [place], [address] MCHC (RBC) [Mass/Vol] 34.1 g/dL Normal 32-36 [facility] Comment on above: Order Comment: Comme nts: If not done in prior 24 hours Performed By: #### L 300.3900, L300.4310, L100.0100 ####[facility] [address] [place], [address] MCV (RBC) [Entitic vol] 86.8 fL Normal 81-99 [facility] Comment on above: Order Comment: Comme nts: If not done in prior 24 hours Performed By: #### L 300.3900, L300.4310, L100.0100 ####[facility] [address] [place], [address] Monocytes/100 WBC (Bld) 3.9 % Normal 0-10 [facility] Comment on above: Order Comment: Comme nts: If not done in prior 24 hours Performed By: #### L 300.3900, L300.4310, L100.0100 ####[facility] [address] [place], [address] Neutrophils/100 WBC (Bld) 90.0 % High 47-70 [facility] Comment on above: Order Comment: Comme nts: If not done in prior 24 hours Performed By: #### L 300.3900, L300.4310, L100.0100 ####[facility] [address] [place], [address] Nucleated RBC (Bld) [#/Vol] 0.2 10*3/uL Normal 0-5 [facility] Comment on above: Order Comment: Comme nts: If not done in prior 24 hours Performed By: #### L 300.3900, L300.4310, L100.0100 ####[facility] [address] [place], [address] Platelet mean volume (Bld) [Entitic vol] 10.2 fL Normal 6.2-12.0 [facility] Comment on above: Order Comment: Comme nts: If not done in prior 24 hours Performed By: #### L 300.3900, L300.4310, L100.0100 ####[facility] [address] [place], [address] Platelets (Bld) [#/Vol] 134 10*3/uL Low 150-450 [facility] Comment on above: Order Comment: Comme nts: If not done in prior 24 hours Performed By: #### L 300.3900, L300.4310, L100.0100 ####[facility] [address] [place], [address] RBC (Bld) [#/Vol] 3.55 10*6/uL Low 4.2-5.4 [facility] Comment on above: Order Comment: Comme nts: If not done in prior 24 hours Performed By: #### L 300.3900, L300.4310, L100.0100 ####[facility] [address] [place], [address] RDW SD 52.6 fl High 35.1-43.9 [facility] Comment on above: Order Comment: Comme nts: If not done in prior 24 hours Performed By: #### L 300.3900, L300.4310, L100.0100 ####[facility] [address] [place], [address] WBC (Bld) [#/Vol] 14.1 10*3/uL High 4.4-11.0 [facility] Comment on above: Order Comment: Comme nts: If not done in prior 24 hours Performed By: #### L 300.3900, L300.4310, L100.0100 ####[facility] [address] [place], [address] Absolute Lymph 0.77 X10 3/uL Low 0.83-4.51 [facility] Comment on above: Performed By: #### L 500.4050, L504.2610, L100.0100, L500.3400 ####[facility] [address] [place], [address] Absolute Neut 14.1 X10 3/uL High 2.0-7.7 [facility] Comment on above: Performed By: #### L 500.4050, L504.2610, L100.0100, L500.3400 ####[facility] [address] [place], [address] Basophils/100 WBC (Bld) 0.2 % Normal 0-1 [facility] Comment on above: Performed By: #### L 500.4050, L504.2610, L100.0100, L500.3400 ####[facility] [address] [place], [address] Eosinophils/100 WBC (Bld) 0.0 % Normal 0-5 [facility] Comment on above: Performed By: #### L 500.4050, L504.2610, L100.0100, L500.3400 ####[facility] [address] [place], [address] Erythrocyte distribution width (RBC) [Ratio] 16.8 % High 11.6-14.6 [facility] Comment on above: Performed By: #### L 500.4050, L504.2610, L100.0100, L500.3400 ####[facility] [address] [place], [address] Hematocrit (Bld) [Volume fraction] 31.8 % Low 37-47 [facility] Comment on above: Performed By: #### L 500.4050, L504.2610, L100.0100, L500.3400 ####[facility] [address] [place], [address] Hemoglobin (Bld) [Mass/Vol] 10.5 g/dL Low 12.0-15.0 [facility] Comment on above: Performed By: #### L 500.4050, L504.2610, L100.0100, L500.3400 ####[facility] [address] [place], [address] IG% 1.800 High 0.0-0.9 [facility] Comment on above: Result Comment: IG% - Immature Granulocytes (promyelocytes, myelocytes andmetamyelocytes) > 1% indicates that a LEFT SHIFT is Present. Performed By: #### L 500.4050, L504.2610, L100.0100, L500.3400 ####[facility] [address] [place], [address] Lymphocytes/100 WBC (Bld) 4.9 % Low 19-41 [facility] Comment on above: Performed By: #### L 500.4050, L504.2610, L100.0100, L500.3400 ####[facility] [address] [place], [address] MCH (RBC) [Entitic mass] 28.5 pg Normal 27.0-32.0 [facility] Comment on above: Performed By: #### L 500.4050, L504.2610, L100.0100, L500.3400 ####[facility] [address] [place], [address] MCHC (RBC) [Mass/Vol] 33.0 g/dL Normal 32-36 [facility] Comment on above: Performed By: #### L 500.4050, L504.2610, L100.0100, L500.3400 ####[facility] [address] [place], [address] MCV (RBC) [Entitic vol] 86.4 fL Normal 81-99 [facility] Comment on above: Performed By: #### L 500.4050, L504.2610, L100.0100, L500.3400 ####[facility] [address] [place], [address] Monocytes/100 WBC (Bld) 3.1 % Normal 0-10 [facility] Comment on above: Performed By: #### L 500.4050, L504.2610, L100.0100, L500.3400 ####[facility] [address] [place], [address] Neutrophils/100 WBC (Bld) 90.0 % High 47-70 [facility] Comment on above: Performed By: #### L 500.4050, L504.2610, L100.0100, L500.3400 ####[facility] [address] [place], [address] Nucleated RBC (Bld) [#/Vol] 0.3 10*3/uL Normal 0-5 [facility] Comment on above: Performed By: #### L 500.4050, L504.2610, L100.0100, L500.3400 ####[facility] [address] [place], [address] Platelet mean volume (Bld) [Entitic vol] 10.6 fL Normal 6.2-12.0 [facility] Comment on above: Performed By: #### L 500.4050, L504.2610, L100.0100, L500.3400 ####[facility] [address] [place], [address] Platelets (Bld) [#/Vol] 141 10*3/uL Low 150-450 [facility] Comment on above: Performed By: #### L 500.4050, L504.2610, L100.0100, L500.3400 ####[facility] [address] [place], [address] RBC (Bld) [#/Vol] 3.68 10*6/uL Low 4.2-5.4 [facility] Comment on above: Performed By: #### L 500.4050, L504.2610, L100.0100, L500.3400 ####[facility] [address] [place], [address] RDW SD 52.5 fl High 35.1-43.9 [facility] Comment on above: Performed By: #### L 500.4050, L504.2610, L100.0100, L500.3400 ####[facility] [address] [place], [address] WBC (Bld) [#/Vol] 15.6 10*3/uL High 4.4-11.0 [facility] Comment on above: Performed By: #### L 500.4050, L504.2610, L100.0100, L500.3400 ####[facility] [address] [place], [address] CBC WITH AUTO DIFFERENTIALon 06-28-2025 AUTO NRBC 0.3 % Normal [facility] Comment on above: Performed By: #### L LD4612 ####[facility] [address] [place] [address] Milton Hinojosa M.D. [id number] AUTO NRBC ABS COUNT 0.04 K/mcL High 0.00-0.00 [facility] Comment on above: Performed By: #### L TX7580 ####[facility] [address] [place] [address] Milton Hinojosa M.D. [id number] BASOPHILS ABSOLUTE COUNT 0.02 K/mcL Normal 0.00-0.30 [facility] Comment on above: Performed By: #### Honey [id number] ####[facility] [address] [place] [address] Milton Hinojosa M.D. [id number] Basophils/100 WBC (Bld) 0.1 % Normal [facility] Comment on above: Performed By: #### Honey [id number] ####[facility] [address] [place] [address] Milton Hinojosa M.D. [id number] Eosinophils (Bld) [#/Vol] 0.00 10*3/uL Normal 0.00-0.50 [facility] Comment on above: Performed By: #### L [id number] ####[facility] [address] [place] [address] Milton Hinojosa M.D. [id number] Eosinophils/100 WBC (Bld) 0.0 % Normal [facility] Comment on above: Performed By: #### L [id number] ####[facility] [address] [place] [address] Milton Hinojosa M.D. [id number] Erythrocyte distribution width (RBC) [Ratio] 17.0 % High 11.6-14.8 [facility] Comment on above: Performed By: #### L [id number] ####[facility] [address] [place] [address] Milton Hinojosa M.D. [id number] Hematocrit (Bld) [Volume fraction] 34.5 % Low 36.0-46.0 [facility] Comment on above: Performed By: #### L [id number] ####[facility] [address] [place] [address] Milton Hinojosa M.D. [id number] Hemoglobin (Bld) [Mass/Vol] 11.0 g/dL Low 12.0-16.0 [facility] Comment on above: Performed By: #### L [id number] ####[facility] [address] [place] [address] Milton Hinojosa M.D. [id number] IG ABSOLUTE 0.31 K/mcL High 0.00-0.30 [facility] Comment on above: Performed By: #### L [id number] ####[facility] [address] [place] [address] Milton Hinojosa M.D. [id number] IG PERCENT 2.20 % Normal [facility] Comment on above: Result Comment: The IG parameter is the percentage of metamyelocytes, myelocytes and promyelocytes. An immature granulocyte count (IG) of 1% or more suggests the possibility of infection, an IG count of 3% is very likely related to an infection. Performed By: #### L [id number] ####[facility] [address] [place] [address] Milton Hinojosa M.D. [id number] Lymphocytes (Bld) [#/Vol] 0.68 10*3/uL Low 0.90-4.00 [facility] Comment on above: Performed By: #### L [id number] ####[facility] [address] [place], [place] [address] Milton Hinojosa M.D. [id number] Lymphocytes/100 WBC (Bld) 4.9 % Normal [facility] Comment on above: Performed By: #### Honey [id number] ####[facility] [address] [place] [address] Milton Hinojosa M.D. [id number] MCH (RBC) [Entitic mass] 29.1 pg Normal 26.0-34.0 [facility] Comment on above: Performed By: #### Honey [id number] ####[facility] [address] [place] [address] Milton Hinojosa M.D. [id number] MCV (RBC) [Entitic vol] 91.3 fL Normal 80.0-100.0 [facility] Comment on above: Performed By: #### Honey [id number] ####[facility] [address] [place] [address] Milton Hinojosa M.D. [id number] MEAN CORPUSCULAR HEMOGLOBIN CONC 31.9 g/dL Normal 31.0-37.0 [facility] Comment on above: Performed By: #### Honey [id number] ####[facility] [address] [place] [address] Milton Hinojosa M.D. [id number] Monocytes (Bld) [#/Vol] 0.50 10*3/uL Normal 0.30-0.90 [facility] Comment on above: Performed By: #### Honey [id number] ####[facility] [address] [place] [address] Milton Hinojosa M.D. [id number] Monocytes/100 WBC (Bld) 3.6 % Normal [facility] Comment on above: Performed By: #### Honey [id number] ####[facility] [address] [place], [place] [address]Zeina Hinojosa M.D. [id number] NEUTROPHILS ABSOLUTE COUNT 12.46 K/mcL High 1.70-7.00 [facility] Comment on above: Performed By: #### Honey [id number] ####[facility] [address] [place], [place] [address] Milton Hinojosa M.D. [id number] Neutrophils/100 WBC (Bld) 89.2 % Normal [facility] Comment on above: Performed By: #### L [id number] ####[facility] [address] [place] [address] Milton Hinojosa M.D. [id number] Platelet mean volume (Bld) [Entitic vol] 10.2 fL Normal 9.4-12.4 [facility] Comment on above: Performed By: #### Honey [id number] ####[facility] [address] [place], [place] [address] Milton Hinojosa M.D. [id number] Platelets (Bld) [#/Vol] 136 10*3/uL Low 150-400 [facility] Comment on above: Performed By: #### Honey [id number] ####[facility] [address] [place], [place] [address] Milton Hinojosa M.D. [id number] RBC (Bld) [#/Vol] 3.78 10*6/uL Low 4.00-5.20 [facility] Comment on above: Performed By: #### L [id number] ####[facility] [address] [place], [place] [address] Milton Hinojosa M.D. [id number] WBC (Bld) [#/Vol] 13.97 10*3/uL High 4.50-11.00 [facility] Comment on above: Performed By: #### L [id number] ####[facility] [address] [place], [place] [address] Milton Hinojosa M.D. [id number] COMPREHENSIVE METABOLIC PANE Gray 06-28-2025 Albumin [Mass/Vol] 2.8 g/dL Low 3.2-5.2 [place] Comment on above: Order Comment: [facility] has implemented the eGFR calculation approach that does not have a coefficient for race that conforms to the NKF-ASN Task Force Recommendations. Performed By: #### 4 [id number] ####[facility] [address] [place], [place] [address] Milton Hinojosa M.D. [id number] ALP [Catalytic activity/Vol] 144 U/L Normal 40-150 [facility] Comment on above: Order Comment: [facility] has implemented the eGFR calculation approach that does not have a coefficient for race that conforms to the NKF-ASN Task Force Recommendations. Performed By: #### 4 [id number] ####[facility] [address] [place], [place] [address] Milton Hinojosa M.D. [id number] ALT [Catalytic activity/Vol] 45 U/L High 0-35 U/L [facility] Comment on above: Order Comment: [facility] has implemented the eGFR calculation approach that does not have a coefficient for race that conforms to the NKF-ASN Task Force Recommendations. Performed By: #### 4 [id number] ####[facility] [address] [place] [address] Milton Hinojosa M.D. [id number] Anion gap [Moles/Vol] 22 mmol/L High 10-20 [facility] Comment on above: Order Comment: [facility] has implemented the eGFR calculation approach that does not have a coefficient for race that conforms to the NKF-ASN Task Force Recommendations. Performed By: #### 4 [id number] ####[facility] [address] [place], [place] [address] Milton Hinojosa M.D. [id number] AST [Catalytic activity/Vol] 34 U/L Normal 0-35 U/L [facility] Comment on above: Order Comment: [facility] has implemented the eGFR calculation approach that does not have a coefficient for race that conforms to the NKF-ASN Task Force Recommendations. Performed By: #### 4 [id number] ####[facility] [address] [place] [address] Milton Hinojosa M.D. [id number] Bilirubin [Mass/Vol] 0.5 mg/dL Normal 0.0-1.3 [facility] Comment on above: Order Comment: [facility] has implemented the eGFR calculation approach that does not have a coefficient for race that conforms to the NKF-ASN Task Force Recommendations. Performed By: #### 4 [id number] ####[facility] [address] [place], [place] [address] Milton Hinojosa M.D. [id number] Calcium [Mass/Vol] 7.7 mg/dL Low 8.4-10.2 [place] Comment on above: Order Comment: [facility] has implemented the eGFR calculation approach that does not have a coefficient for race that conforms to the NKF-ASN Task Force Recommendations. Performed By: #### 4 [id number] ####[facility] [address] [place], [place] [address] Milton Hinojosa M.D. [id number] Chloride [Moles/Vol] 96 mmol/L Low 98-108 [facility] Comment on above: Order Comment: [facility] has implemented the eGFR calculation approach that does not have a coefficient for race that conforms to the NKF-ASN Task Force Recommendations. Performed By: #### 4 [id number] ####[facility] [address] [place] [address] Milton Hinojosa M.D. [id number] Creatinine [Mass/Vol] 6.51 mg/dL High 0.60-1.20 [facility] Comment on above: Order Comment: [facility] has implemented the eGFR calculation approach that does not have a coefficient for race that conforms to the NKF-ASN Task Force Recommendations. Performed By: #### 4 6126 ####[facility] [address] [place] [address] Milton Hinojosa M.D. [id number] EGFR 6 mL/min/1.73 m2 Low >=60 [facility] Comment on above: Order Comment: [facility] has implemented the eGFR calculation approach that does not have a coefficient for race that conforms to the NKF-ASN Task Force Recommendations. Result Comment: Lalita mated GFR was calculated using the 2020 CKD-EPI creatinine equation. Performed By: #### 4 6126 ####[facility] [address] [place] [address] Milton Hinojosa M.D. [id number] Glucose [Mass/Vol] 248 mg/dL High 65-99 [place] Comment on above: Order Comment: [facility] has implemented the eGFR calculation approach that does not have a coefficient for race that conforms to the NKF-ASN Task Force Recommendations. Performed By: #### 4 6126 ####[facility] [address] [place] [address] Milton Hinojosa M.D. [id number] HCO3 (Bld) [Moles/Vol] 20 mmol/L Low 21-32 [facility] Comment on above: Order Comment: [facility] has implemented the eGFR calculation approach that does not have a coefficient for race that conforms to the NKF-ASN Task Force Recommendations. Performed By: #### 4 6126 ####[facility] [address] [place] [address] Milton Hinojosa M.D. [id number] Potassium [Moles/Vol] 4.5 mmol/L Normal 3.5-5.1 [facility] Comment on above: Order Comment: [facility] has implemented the eGFR calculation approach that does not have a coefficient for race that conforms to the NKF-ASN Task Force Recommendations. Performed By: #### 4 6126 ####[facility] [address] [place] [address] Milton Hinojosa M.D. [id number] Protein [Mass/Vol] 5.6 g/dL Low 6.0-8.0 [place] Comment on above: Order Comment: [facility] has implemented the eGFR calculation approach that does not have a coefficient for race that conforms to the NKF-ASN Task Force Recommendations. Performed By: #### 4 6126 ####[facility] [address] [place] [address] Milton Hinojosa M.D. [id number] Sodium [Moles/Vol] 133 mmol/L Low 135-145 [place] Comment on above: Order Comment: [facility] has implemented the eGFR calculation approach that does not have a coefficient for race that conforms to the NKF-ASN Task Force Recommendations. Performed By: #### 4 6126 ####[facility] [address] [place] [address] Milton Hinojosa M.D. [id number] Urea nitrogen [Mass/Vol] 84 mg/dL High 8-25 [facility] Comment on above: Order Comment: [facility] has implemented the eGFR calculation approach that does not have a coefficient for race that conforms to the NKF-ASN Task Force Recommendations. Performed By: #### 4 6126 ####[facility] [address] [place] [address] Milton Hinojosa M.D. [id number] Urea nitrogen/Creatinine [Mass ratio] 12.9 mg/mg Normal 10.0-20.0 [facility] Comment on above: Order Comment: [facility] has implemented the eGFR calculation approach that does not have a coefficient for race that conforms to the NKF-ASN Task Force Recommendations. Performed By: #### 4 6126 ####[facility] [address] [place], [place] [address] Milton Hinojosa M.D. [id number] Chest 1 View (Portable)on Chest 1 View (Portable) Normal [facility] Chest Insp/Exp 2 Viewon 06-15 Chest Insp/Exp 2 View Normal [facility] Comprehensive Metabolic Prof ilon 06-28-2025 Albumin/Globulin [Mass ratio] 1.0 {ratio} Normal 0.9-2.4 [facility] Comment on above: Performed By: #### L 500.4050, L504.2610, L100.0100, L500.3400 ####[facility] [address] [place], [address] BUN/CRE 13.3 RATIO Normal 10-20 [facility] Comment on above: Performed By: #### L 500.4050, L504.2610, L100.0100, L500.3400 ####[facility] [address] [place], [address] Calcium [Mass/Vol] 7.9 mg/dL Normal 7.6-11.0 [facility] Comment on above: Performed By: #### L 500.4050, L504.2610, L100.0100, L500.3400 ####[facility] [address] [place], [address] Chloride [Moles/Vol] 97 mmol/L Low 98-108 [facility] Comment on above: Performed By: #### L 500.4050, L504.2610, L100.0100, L500.3400 ####[facility] [address] [place], [address] CO2 [Moles/Vol] 18.3 mmol/L Low 21.0-32.0 [facility] Comment on above: Performed By: #### L 500.4050, L504.2610, L100.0100, L500.3400 ####[facility] [address] [place], [address] Creatinine [Mass/Vol] 6.32 mg/dL High 0.70-1.20 [facility] Comment on above: Performed By: #### L 500.4050, L504.2610, L100.0100, L500.3400 ####[facility] [address] [place], [address] ECRCL 8.22 ml/min Invalid Interpretation Code 50-250 [facility] Comment on above: Performed By: #### L 500.4050, L504.2610, L100.0100, L500.3400 ####[facility] [address] [place], [address] GAP 20 High 5-15 [facility] Comment on above: Performed By: #### L 500.4050, L504.2610, L100.0100, L500.3400 ####[facility] [address] [place], [address] GFR/1.73 sq M.predicted among non-blacks MDRD (S/P/Bld) [Vol rate/Area] 6 mL/min/{1.73_m2} Low >60 [facility] Comment on above: Result Comment: mL/m in/1.73m2 CKD-EPI Creatinine Equation (2020) Performed By: #### L 500.4050, L504.2610, L100.0100, L500.3400 ####[facility] [address] [place], [address] Glucose [Mass/Vol] 217 mg/dL High 70-99 [facility] Comment on above: Performed By: #### L 500.4050, L504.2610, L100.0100, L500.3400 ####[facility] [address] [place], [address] Potassium [Moles/Vol] 4.4 mmol/L Normal 3.3-5.1 [facility] Comment on above: Performed By: #### L 500.4050, L504.2610, L100.0100, L500.3400 ####[facility] [address] [place], [address] Sodium [Moles/Vol] 136 mmol/L Normal 133-145 [facility] Comment on above: Performed By: #### L 500.4050, L504.2610, L100.0100, L500.3400 ####[facility] [address] [place], [address] Urea nitrogen [Mass/Vol] 84 mg/dL High 4-19 [facility] Comment on above: Performed By: #### L 500.4050, L504.2610, L100.0100, L500.3400 ####[facility] [address] [place], [address] Culture, Blood (WB)on 2024 CUB Normal [facility] Comment on above: Performed By: #### M 200.1000, M100.636 ####[facility] [address] [place], [address] CUB Normal [facility] Comment on above: Performed By: #### M 200.1000 ####[facility] [address] [place], [address] Cytology, Body Fluid / CSFon 06-28-2025 CYTOLOGY,BF/CSF SEE PATHOLOGY REPORT Normal [facility] Comment on above: Order Comment: Order Date: 06/28/25ORA Result Comment: Spec imen submitted to Anatomical Pathology Department fortesting. Performed By: #### L 350.1000, L200.0200, M100.2000, M100.2900, M100.4001 ####[facility] [address] [place], [address] Echo Transesophageal (DESTIN)on 08-14-2025 Echo Transesophageal (DESTIN) Normal [facility] Glucose, Body Fluidon 2024 GLUC, BODY FLD 240 mg/dL Normal Not Establ. [facility] Comment on above: Order Comment: THORA Performed By: #### L 504.0250, L503.0100, L503.0300 ####[facility] [address] [place], [address] H AND Kyler 06-28-2025 H AND P Normal [facility] HEMOGLOBIN A1Con 06-28-2025 Glucose [Mass/Vol] 143 mg/dL High 74-114 [place] Comment on above: Order Comment: Nitza l: 4.2% - 5.6%Increased risk for diabetes: 5.7% - 6.4%Diabetes: >= 6.5%Pediatrics: No established reference rangeEstimated average glucose: 74-114 mg/dL Performed By: #### 4 8202 ####[facility] [address] [place], [place] [address] Milton Hinojosa M.D. [id number] HbA1c (Bld) [Mass fraction] 6.6 % High 4.2-5.6 [facility] Comment on above: Order Comment: Nitza l: 4.2% - 5.6%Increased risk for diabetes: 5.7% - 6.4%Diabetes: >= 6.5%Pediatrics: No established reference rangeEstimated average glucose: 74-114 mg/dL Performed By: #### 4 8202 ####[facility] [address] [place], [place] [address] Milton Hinojosa M.D. [id number] LACTIC ACID, PLASMAon 2024 LACTIC ACID, PLASMA 1.4 mmol/L Normal 0.6-2.0 [facility] Comment on above: Performed By: #### 4 6053 ####[facility] [address] [place], [place] [address] Milton Hinojosa M.D. [id number] LDHon 06-28-2025 LDH 294 U/L High 84-246 [facility] Comment on above: Performed By: #### L 500.4050, L504.2610, L100.0100, L500.3400 ####[facility] [address] [place], [address] LDH,Body Fluidon 06-28-2025 LDH,BF 101 Units/L Normal Not Establ. [facility] Comment on above: Order Comment: THORA Performed By: #### L 504.0250, L503.0100, L503.0300 ####[facility] [address] [place], [address] Liver Profileon 06-28-2025 Albumin [Mass/Vol] 2.6 g/dL Low 3.4-4.8 [facility] Comment on above: Performed By: #### L 500.4050, L504.2610, L100.0100, L500.3400 ####[facility] [address] [place], [address] ALK PHOS 139 U/L High 35-104 [facility] Comment on above: Performed By: #### L 500.4050, L504.2610, L100.0100, L500.3400 ####[facility] [address] [place], [address] ALT [Catalytic activity/Vol] 44 U/L High <=34 [facility] Comment on above: Performed By: #### L 500.4050, L504.2610, L100.0100, L500.3400 ####[facility] [address] [place], [address] AST [Catalytic activity/Vol] 33 U/L High <=31 [facility] Comment on above: Performed By: #### L 500.4050, L504.2610, L100.0100, L500.3400 ####[facility] [address] [place], [address] Bilirubin [Mass/Vol] 0.57 mg/dL Normal 0.00-1.30 [facility] Comment on above: Performed By: #### L 500.4050, L504.2610, L100.0100, L500.3400 ####[facility] [address] [place], [address] Bilirubin.direct [Mass/Vol] 0.42 mg/dL High 0.00-0.30 [facility] Comment on above: Performed By: #### L 500.4050, L504.2610, L100.0100, L500.3400 ####[facility] [address] [place], [address] Globulin (S) [Mass/Vol] 2.6 g/dL Normal 2.2-4.2 [facility] Comment on above: Performed By: #### L 500.4050, L504.2610, L100.0100, L500.3400 ####[facility] [address] [place], [address] T PROT 5.2 g/dL Low 5.9-8.4 [facility] Comment on above: Performed By: #### L 500.4050, L504.2610, L100.0100, L500.3400 ####[facility] [address] [place], [address] MAGNESIUM LEVELon 06-28-2025 Magnesium [Mass/Vol] 2.3 mg/dL Normal 1.6-2.4 [facility] Comment on above: Performed By: #### 4 6109 ####[facility] [address] [place], [place] [address] Milton Hinojosa M.D. [id number] NT PRO BNPon 06-28-2025 NT-PRO BNP > High 0-300 [facility] Comment on above: Order Comment: Pride Study Cut-offsRule In:< /= 50 Years >450 pg/mL51 Years - 75 Years >900 pg/mL76 Years - 99 Years >1800 pg/mLRule Out:All patients <300 pg/mL Performed By: #### 4 7395 ####[facility] [address] [place] [address] Milton Hinojosa M.D. [id number] PHOSPHORUSon 06-28-2025 Phosphate [Mass/Vol] 7.2 mg/dL High 2.8-4.1 [facility] Comment on above: Performed By: #### 4 6299 ####[facility] [address] [place] [address] Milton Hinojosa M.D. [id number] POC GLUCOSE - [facility] 025 Glucose [Mass/Vol] 260 mg/dL High 65-[address] [place] [address] Comment on above: Performed By: #### 4 6932 ####[facility] [address] [place] [address] [id number] [facility] Glucose [Mass/Vol] 242 mg/dL High 65-[address] [place] [address] Comment on above: Performed By: #### 4 6938 ####[facility] [address] [place] [address] [id number] [facility] Glucose [Mass/Vol] 246 mg/dL High [address] [place] [address] Comment on above: Performed By: #### 4 8138 ####[facility] [address] [place] [address] [id number] [facility] POC VENOUS BLOOD GAS PANEL-P ULM - [facility] 06-28-2025 BASE EXCESS, VENOUS -6.4 Low -2.0-2.0 [facility] Comment on above: Performed By: #### 4 7703 ####[facility] [address] [place] [address] [id number] [facility] FIO2 50 Normal [facility] Comment on above: Performed By: #### 4 4841 ####[facility] [address] [place] [address] [id number] [facility] HCO3 (Bld) [Moles/Vol] 22.0 mmol/L Low 24.0-28.0 [facility] Comment on above: Performed By: #### 4 8717 ####[facility] [address] [place] [address] [id number] [facility] Hematocrit (Bld) [Volume fraction] 41.2 % Normal 36.0-46.0 [facility] Comment on above: Performed By: #### 4 8717 ####[facility] [address] [place] [address] [id number] [facility] Hemoglobin (Bld) [Mass/Vol] 13.4 g/dL Normal 12.0-16.0 [facility] Comment on above: Performed By: #### 4 8717 ####[facility] [address] [place] [address] [id number] [facility] Oxygen saturation in Blood 78.4 % High 40.0-70.0 [facility] Comment on above: Performed By: #### 4 8717 ####[facility] [address] [place] [address] [id number] [facility] PCO2 VENOUS 54.6 mm Hg High 41.0-51.0 [facility] Comment on above: Performed By: #### 4 8717 ####[facility] [address] [place] [address] [id number] [facility] PEEP RAD 5 Normal [facility] Comment on above: Performed By: #### 4 8717 ####[facility] [address] [place] [address] [id number] RMHPOC PH VENOUS 7.21 Low 7.32-7.42 [facility] Comment on above: Performed By: #### 4 8717 ####[facility] [address] [place] [address] [id number] RMHPOC PO2 VENOUS 56 mm Hg High 25-40 [facility] Comment on above: Performed By: #### 4 8717 ####[facility] [address] [address] [id number] RMHPOC Partial Thromboplast Timeon 06-28-2025 aPTT Coag (Bld) [Time] 31.8 s Normal 24.1-36.2 [facility] Comment on above: Order Comment: Comme nts: If not done in prior 24 hours Performed By: #### L 300.3900, L300.4310, L100.0100 ####[facility] [address] [place], [address] Protein, Body Fluidon 2024 Protein [Mass/Vol] 2.8 g/dL Normal Not Establ. [facility] Comment on above: Order Comment: THORA Performed By: #### L 504.0250, L503.0100, L503.0300 ####[facility] [address] [place], [address] Protein, Totalon 06-28-2025 T PROT Normal 5.9-8.4 [facility] Comment on above: Result Comment: DUP ORDER PER RN MPHILLIPS Performed By: #### L 001.0705 ####[facility] [address] [place], [address] Prothrombin Time w/INRon INR Coag (PPP) [Relative time] 1.6 {INR} Normal [facility] Comment on above: Order Comment: Comme nts: If not done in prior 24 hours Performed By: #### L 300.3900, L300.4310, L100.0100 ####[facility] [address] [place], [address] PT Coag (PPP) [Time] 19.6 s High 11.7-14.9 [facility] Comment on above: Order Comment: Comme nts: If not done in prior 24 hours Performed By: #### L 300.3900, L300.4310, L100.0100 ####[facility] [address] [place], [address] Special Stain Group IIon Special Stain Group II Normal [facility] Comment on above: Performed By: #### P SSII ####[facility] [address] [place], [address] TRIGLYCERIDESon 06-28-2025 Triglyceride [Mass/Vol] 120 mg/dL Normal 30-150 [facility] Comment on above: Result Comment: Keisha onal Cholesterol Education Program Guidelines: TriglycerideNormal: <150 mg/dLBorderline High: 150-199 mg/dLHigh: 200-499 mg/dLVery High: greater than or equal to 500 mg/dL Performed By: #### 4 6606 ####[facility] [address] [place] [address] Milton Hinojosa M.D. [id number] TSH WITH REFLEX FREE T4on TSH Qn 1.73 m[IU]/L Normal 0.27-4.20 [facility] Comment on above: Performed By: #### 4 6612 ####[facility] [address] [place] [address] Milton Hinojosa M.D. [id number] Thoracentesis W USon 025 Thoracentesis W US Normal [facility] Urine Cultureon 06-28-2025 URC #2 Below infection level. Urine Culture Yeast, not Julia albicans [place] Count 25,000-50,000 GNR lactose service station helper GNR lactose service station helper Normal [facility] Comment on above: Performed By: #### L 400.0001, M100.2200 ####[facility] [address] [place], [address] Venous Blood Gason Results To White Brown Normal [facility] Comment on above: Performed By: #### L 9000.0810 ####[facility] [address] [place], [address] XR ABDOMEN /KUB/FLAT PLATE/1 VIEWon 06-28-2025 XR ABDOMEN /KUB/FLAT PLATE/1 VIEW Normal [facility] Comment on above: Order Comment: Injur y/Trauma or Illness?:Illness/OtherHow long have you had these symptoms (acute/chronic)?:UnknownReason for exam?:OG tube placementHistory of cancer?:unkSurgeries, chemotherapy, or radiation?:unkType of Exam?:InitialAdditional signs and symptoms?:. XR CHEST PA/APon 06-28-2025 XR CHEST PA/AP Normal [facility] Comment on above: Order Comment: Injur y/Trauma or Illness?:Illness/OtherHow long have you had these symptoms (acute/chronic)?:AcuteReason for exam?:eval ETT, right pl effusionHistory of cancer?:unkSurgeries, chemotherapy, or radiation?:unkType of Exam?:InitialAdditional signs and symptoms?:eval ETT, right pl effusion Bedside Glucoseon 06-27-2025 FINGERSTICK GLU 166 mg/dL High 74-106 [facility] Comment on above: Result Comment: RONNIE GEMENT OF PATIENT CARE PER NURSING PROTOCOL Performed By: #### L 501.080 ####[facility] [address] [place], [address] FINGERSTICK GLU 181 mg/dL High 74-106 [facility] Comment on above: Result Comment: RONNIE GEMENT OF PATIENT CARE PER NURSING PROTOCOL Performed By: #### L 501.080 ####[facility] [address] [place], [address] [facility] PO2 TNP Normal 75-100 [facility] Comment on above: Order Comment: RESUL TS MANUALLY ENTERED BY LUCÍA AND VERIFIED BY DAVE 06/27/25 AT 11:11AM. Performed By: #### L 9000.0800 ####[facility] [address] [place], [address] SO2 TNP Normal 95-99 [facility] Comment on above: Order Comment: RESUL TS MANUALLY ENTERED BY LUCÍA AND VERIFIED BY JPETERSON 06/27/25 AT 11:11AM. Performed By: #### L 9000.0800 ####[facility] [address] [place], [address] FI02 30.0 Normal [facility] Comment on above: Order Comment: RESUL TS MANUALLY ENTERED BY LUCÍA AND VERIFIED BY JPETERSON 06/27/25 AT 11:11AM. Performed By: #### L 9000.0800 ####[facility] [address] [place], [address] PEEP 5 Normal [facility] Comment on above: Order Comment: RESUL TS MANUALLY ENTERED BY LUCÍA AND VERIFIED BY JPETERSON 06/27/25 AT 11:11AM. Performed By: #### L 9000.0800 ####[facility] [address] [place], [address] RR 18 Normal [facility] Comment on above: Order Comment: RESUL TS MANUALLY ENTERED BY LUCÍA AND VERIFIED BY JPETERSON 06/27/25 AT 11:11AM. Performed By: #### L 9000.0800 ####[facility] [address] [place], [address] Vt 450.0 mL Normal [facility] Comment on above: Order Comment: RESUL TS MANUALLY ENTERED BY LUCÍA AND VERIFIED BY CHARANJITETERSON 06/27/25 AT 11:11AM. Performed By: #### L 9000.0800 ####[facility] [address] [place], [address] CARMINE TEST Positive Normal [facility] Comment on above: Order Comment: RESUL TS MANUALLY ENTERED BY LUCÍA AND VERIFIED BY CHARANJITETERSON 06/27/25 AT 11:11AM. Performed By: #### L 9000.0800 ####[facility] [address] [place], [address] Mode A-C Normal [facility] Comment on above: Order Comment: RESUL TS MANUALLY ENTERED BY LUCÍA AND VERIFIED BY CHARANJITETERSON 06/27/25 AT 11:11AM. Performed By: #### L 9000.0800 ####[facility] [address] [place], [address] O2 Delivery Dev ADULT VENTILATOR Normal [facility] Comment on above: Order Comment: RESUL TS MANUALLY ENTERED BY LUCÍA AND VERIFIED BY CHARANJITETERSOYNI 06/27/25 AT 11:11AM. Performed By: #### L 9000.0800 ####[facility] [address] [place], [address] SITE L RADIAL Normal [facility] Comment on above: Order Comment: RESUL TS MANUALLY ENTERED BY LUCÍA AND VERIFIED BY CHARANJITETERSYONI 06/27/25 AT 11:11AM. Performed By: #### L 9000.0800 ####[facility] [address] [place], [address] BE Normal -2 to +2 [facility] Comment on above: Result Comment: DUPL ICATE Performed By: #### L 9000.0800 ####[facility] [address] [place], [address] HCO3 Normal 22-26 [facility] Comment on above: Result Comment: DUPL ICATE Performed By: #### L 9000.0800 ####[facility] [address] [place], [address] pCO2 Normal 35-45 [facility] Comment on above: Result Comment: DUPL ICATE Performed By: #### L 9000.0800 ####[facility] [address] [place], [address] pH Normal 7.35-7.45 [facility] Comment on above: Result Comment: DUPL ICATE Performed By: #### L 9000.0800 ####[facility] [address] [place], [address] PO2 Normal 75-100 [facility] Comment on above: Result Comment: DUPL ICATE Performed By: #### L 9000.0800 ####[facility] [address] [place], [address] SO2 Normal 95-99 [facility] Comment on above: Result Comment: DUPL ICATE Performed By: #### L 9000.0800 ####[facility] [address] [place], [address] TOTAL CO2 Normal [facility] Comment on above: Result Comment: DUPL ICATE Performed By: #### L 9000.0800 ####[facility] [address] [place], [address] CBC W/Diff, Automatedon 08- ACANTHOCYTE RARE Normal [facility] Comment on above: Performed By: #### L 100.0100, L500.4050, L500.3400 ####[facility] [address] [place], [address] Anisocytosis Ql (Bld) 1+ Normal [facility] Comment on above: Performed By: #### L 100.0100, L500.4050, L500.3400 ####[facility] [address] [place], [address] CRENATED RBC 2+ Normal [facility] Comment on above: Performed By: #### L 100.0100, L500.4050, L500.3400 ####[facility] [address] [place], [address] OVALOCYTE 1+ Normal [facility] Comment on above: Performed By: #### L 100.0100, L500.4050, L500.3400 ####[facility] [address] [place], [address] POLYCHROMASIA 1+ Normal [facility] Comment on above: Performed By: #### L 100.0100, L500.4050, L500.3400 ####[facility] [address] [place], [address] TARGET CELLS RARE Normal [facility] Comment on above: Performed By: #### L 100.0100, L500.4050, L500.3400 ####[facility] [address] [place], [address] PLT EST ADEQUATE Normal ADEQ [facility] Comment on above: Performed By: #### L 100.0100, L500.4050, L500.3400 ####[facility] [address] [place], [address] SMEAR COMMENT SCANNED Normal [facility] Comment on above: Performed By: #### L 100.0100, L500.4050, L500.3400 ####[facility] [address] [place], [address] Chest 1 View (Portable)on Chest 1 View (Portable) Normal [facility] Comprehensive Metabolic Prof ilon 06-27-2025 Albumin/Globulin [Mass ratio] 1.0 {ratio} Normal 0.9-2.4 [facility] Comment on above: Performed By: #### L 100.0100, L500.4050, L500.3400 ####[facility] [address] [place], [address] BUN/CRE 12.5 RATIO Normal 10-20 [facility] Comment on above: Performed By: #### L 100.0100, L500.4050, L500.3400 ####[facility] [address] [place], [address] Calcium [Mass/Vol] 8.0 mg/dL Normal 7.6-11.0 [facility] Comment on above: Performed By: #### L 100.0100, L500.4050, L500.3400 ####[facility] [address] [place], [address] Chloride [Moles/Vol] 99 mmol/L Normal 98-108 [facility] Comment on above: Performed By: #### L 100.0100, L500.4050, L500.3400 ####[facility] [address] [place], [address] CO2 [Moles/Vol] 19.6 mmol/L Low 21.0-32.0 [facility] Comment on above: Performed By: #### L 100.0100, L500.4050, L500.3400 ####[facility] [address] [place], [address] Creatinine [Mass/Vol] 6.24 mg/dL High 0.70-1.20 [facility] Comment on above: Performed By: #### L 100.0100, L500.4050, L500.3400 ####[facility] [address] [place], [address] ECRCL 8.26 ml/min Invalid Interpretation Code 50-250 [facility] Comment on above: Performed By: #### L 100.0100, L500.4050, L500.3400 ####[facility] [address] [place], [address] GAP 19 High 5-15 [facility] Comment on above: Performed By: #### L 100.0100, L500.4050, L500.3400 ####[facility] [address] [place], [address] GFR/1.73 sq M.predicted among non-blacks MDRD (S/P/Bld) [Vol rate/Area] 7 mL/min/{1.73_m2} Low >60 [facility] Comment on above: Result Comment: mL/m in/1.73m2 CKD-EPI Creatinine Equation (2020) Performed By: #### L 100.0100, L500.4050, L500.3400 ####[facility] [address] [place], [address] Glucose [Mass/Vol] 193 mg/dL High 70-99 [facility] Comment on above: Performed By: #### L 100.0100, L500.4050, L500.3400 ####[facility] [address] [place], [address] Potassium [Moles/Vol] 4.8 mmol/L Normal 3.3-5.1 [facility] Comment on above: Performed By: #### L 100.0100, L500.4050, L500.3400 ####[facility] [address] [place], [address] Sodium [Moles/Vol] 137 mmol/L Normal 133-145 [facility] Comment on above: Performed By: #### L 100.0100, L500.4050, L500.3400 ####[facility] [address] [place], [address] Urea nitrogen [Mass/Vol] 78 mg/dL High 4-19 [facility] Comment on above: Performed By: #### L 100.0100, L500.4050, L500.3400 ####[facility] [address] [place], [address] Gram Stainon 06-27-2025 GS CATH TIP Gram Stain 4+ White Blood Cells 4+ Gram positive cocci 4+ Red Blood Cells No Epithelial cells Normal [facility] Comment on above: Performed By: #### M 100.3000, M100.2000, M100.4001 ####[facility] [address] [place], [address] Lactic Acidon 06-27-2025 Lactate [Moles/Vol] 1.8 mmol/L Normal 0.0-2.0 [facility] Comment on above: Order Comment: Y Performed By: #### L 503.6003 ####[facility] [address] [place], [address] Liver Profileon 06-27-2025 Albumin [Mass/Vol] 2.6 g/dL Low 3.4-4.8 [facility] Comment on above: Performed By: #### L 100.0100, L500.4050, L500.3400 ####[facility] [address] [place], [address] ALK PHOS 149 U/L High 35-104 [facility] Comment on above: Performed By: #### L 100.0100, L500.4050, L500.3400 ####[facility] [address] [place], [address] ALT [Catalytic activity/Vol] 52 U/L High <=34 [facility] Comment on above: Performed By: #### L 100.0100, L500.4050, L500.3400 ####[facility] [address] [place], [address] AST [Catalytic activity/Vol] 42 U/L High <=31 [facility] Comment on above: Performed By: #### L 100.0100, L500.4050, L500.3400 ####[facility] [address] [place], [address] Bilirubin [Mass/Vol] 0.65 mg/dL Normal 0.00-1.30 [facility] Comment on above: Performed By: #### L 100.0100, L500.4050, L500.3400 ####[facility] [address] [place], [address] Bilirubin.direct [Mass/Vol] 0.47 mg/dL High 0.00-0.30 [facility] Comment on above: Performed By: #### L 100.0100, L500.4050, L500.3400 ####[facility] [address] [place], [address] Globulin (S) [Mass/Vol] 2.6 g/dL Normal 2.2-4.2 [facility] Comment on above: Performed By: #### L 100.0100, L500.4050, L500.3400 ####[facility] [address] [place], [address] T PROT 5.3 g/dL Low 5.9-8.4 [facility] Comment on above: Performed By: #### L 100.0100, L500.4050, L500.3400 ####[facility] [address] [place], [address] Respiratory Cultureon 2024 RESPC Culture exhibits no growth. Normal [facility] Comment on above: Performed By: #### M 100.2400, M100.2000 ####[facility] [address] [place], [address] BC GPC IDon 06-26-2025 BC GPC ID Normal [facility] Comment on above: Performed By: #### M 200.1000, M100.636 ####[facility] [address] [place], [address] Basic Metabolic Profile (BMP )on 06-26-2025 BUN/CRE 10.8 RATIO Normal 10-20 [facility] Comment on above: Performed By: #### L 501.2300, L500.2500, L100.0100 ####[facility] [address] [place], [address] Calcium [Mass/Vol] 8.0 mg/dL Normal 7.6-11.0 [facility] Comment on above: Performed By: #### L 501.2300, L500.2500, L100.0100 ####[facility] [address] [place], [address] Chloride [Moles/Vol] 96 mmol/L Low 98-108 [facility] Comment on above: Performed By: #### L 501.2300, L500.2500, L100.0100 ####[facility] [address] [place], [address] CO2 [Moles/Vol] 16.0 mmol/L Low 21.0-32.0 [facility] Comment on above: Performed By: #### L 501.2300, L500.2500, L100.0100 ####[facility] [address] [place], [address] Creatinine [Mass/Vol] 6.01 mg/dL High 0.70-1.20 [facility] Comment on above: Performed By: #### L 501.2300, L500.2500, L100.0100 ####[facility] [address] [place], [address] ECRCL 8.53 ml/min Invalid Interpretation Code 50-250 [facility] Comment on above: Performed By: #### L 501.2300, L500.2500, L100.0100 ####[facility] [address] [place], [address] GAP 24 High 5-15 [facility] Comment on above: Performed By: #### L 501.2300, L500.2500, L100.0100 ####[facility] [address] [place], [address] GFR/1.73 sq M.predicted among non-blacks MDRD (S/P/Bld) [Vol rate/Area] 7 mL/min/{1.73_m2} Low >60 [facility] Comment on above: Result Comment: mL/m in/1.73m2 CKD-EPI Creatinine Equation (2020) Performed By: #### L 501.2300, L500.2500, L100.0100 ####[facility] [address] [place], [address] Glucose [Mass/Vol] 219 mg/dL High 70-99 [facility] Comment on above: Performed By: #### L 501.2300, L500.2500, L100.0100 ####[facility] [address] [place], [address] Potassium [Moles/Vol] 4.9 mmol/L Normal 3.3-5.1 [facility] Comment on above: Performed By: #### L 501.2300, L500.2500, L100.0100 ####[facility] [address] [place], [address] Sodium [Moles/Vol] 136 mmol/L Normal 133-145 [facility] Comment on above: Performed By: #### L 501.2300, L500.2500, L100.0100 ####[facility] [address] [place], [address] Urea nitrogen [Mass/Vol] 65 mg/dL High 4-19 [facility] Comment on above: Performed By: #### L 501.2300, L500.2500, L100.0100 ####[facility] [address] [place], [address] Bedside Glucoseon 06-26-2025 FINGERSTICK GLU 213 mg/dL High 74-106 [facility] Comment on above: Result Comment: RONNIE GEMENT OF PATIENT CARE PER NURSING PROTOCOL Performed By: #### L 501.080 ####[facility] [address] [place], [address] FINGERSTICK GLU 187 mg/dL High 74-106 [facility] Comment on above: Result Comment: RONNIE GEMENT OF PATIENT CARE PER NURSING PROTOCOL Performed By: #### L 501.080 ####[facility] [address] [place], [address] FINGERSTICK GLU 206 mg/dL High 74-106 [facility] Comment on above: Result Comment: RONNIE GEMENT OF PATIENT CARE PER NURSING PROTOCOL Performed By: #### L 501.080 ####[facility] [address] [place], [address] FINGERSTICK GLU 202 mg/dL High 74-106 [facility] Comment on above: Result Comment: RONNIE GEMENT OF PATIENT CARE PER NURSING PROTOCOL Performed By: #### L 501.080 ####[facility] [address] [place], [address] FINGERSTICK GLU 192 mg/dL High 74-106 [facility] Comment on above: Result Comment: RONNIE GEMENT OF PATIENT CARE PER NURSING PROTOCOL Performed By: #### L 501.080 ####[facility] [address] [place], [address] CBC W/Diff, Automatedon -11 16-2024 Absolute Lymph 1.05 X10 3/uL Normal 0.83-4.51 [facility] Comment on above: Performed By: #### L 501.2300, L500.2500, L100.0100 ####[facility] [address] [place], [address] Absolute Neut 19.7 X10 3/uL High 2.0-7.7 [facility] Comment on above: Performed By: #### L 501.2300, L500.2500, L100.0100 ####[facility] [address] [place], [address] Basophils/100 WBC (Bld) 0.4 % Normal 0-1 [facility] Comment on above: Performed By: #### L 501.2300, L500.2500, L100.0100 ####[facility] [address] [place], [address] Eosinophils/100 WBC (Bld) 0.4 % Normal 0-5 [facility] Comment on above: Performed By: #### L 501.2300, L500.2500, L100.0100 ####[facility] [address] [place], [address] Erythrocyte distribution width (RBC) [Ratio] 16.7 % High 11.6-14.6 [facility] Comment on above: Performed By: #### L 501.2300, L500.2500, L100.0100 ####[facility] [address] [place], [address] Hematocrit (Bld) [Volume fraction] 37.9 % Normal 37-47 [facility] Comment on above: Performed By: #### L 501.2300, L500.2500, L100.0100 ####[facility] [address] [place], [address] Hemoglobin (Bld) [Mass/Vol] 12.4 g/dL Normal 12.0-15.0 [facility] Comment on above: Performed By: #### L 501.2300, L500.2500, L100.0100 ####[facility] [address] [place], [address] IG% 1.700 High 0.0-0.9 [facility] Comment on above: Result Comment: IG% - Immature Granulocytes (promyelocytes, myelocytes andmetamyelocytes) > 1% indicates that a LEFT SHIFT is Present. Performed By: #### L 501.2300, L500.2500, L100.0100 ####[facility] [address] [place], [address] Lymphocytes/100 WBC (Bld) 4.7 % Low 19-41 [facility] Comment on above: Performed By: #### L 501.2300, L500.2500, L100.0100 ####[facility] [address] [place], [address] MCH (RBC) [Entitic mass] 29.2 pg Normal 27.0-32.0 [facility] Comment on above: Performed By: #### L 501.2300, L500.2500, L100.0100 ####[facility] [address] [place], [address] MCHC (RBC) [Mass/Vol] 32.7 g/dL Normal 32-36 [facility] Comment on above: Performed By: #### L 501.2300, L500.2500, L100.0100 ####[facility] [address] [place], [address] MCV (RBC) [Entitic vol] 89.2 fL Normal 81-99 [facility] Comment on above: Performed By: #### L 501.2300, L500.2500, L100.0100 ####[facility] [address] [place], [address] Monocytes/100 WBC (Bld) 4.4 % Normal 0-10 [facility] Comment on above: Performed By: #### L 501.2300, L500.2500, L100.0100 ####[facility] [address] [place], [address] Neutrophils/100 WBC (Bld) 88.4 % High 47-70 [facility] Comment on above: Performed By: #### L 501.2300, L500.2500, L100.0100 ####[facility] [address] [place], [address] Nucleated RBC (Bld) [#/Vol] 0.5 10*3/uL Normal 0-5 [facility] Comment on above: Performed By: #### L 501.2300, L500.2500, L100.0100 ####[facility] [address] [place], [address] Platelet mean volume (Bld) [Entitic vol] 11.3 fL Normal 6.2-12.0 [facility] Comment on above: Performed By: #### L 501.2300, L500.2500, L100.0100 ####[facility] [address] [place], [address] Platelets (Bld) [#/Vol] 190 10*3/uL Normal 150-450 [facility] Comment on above: Performed By: #### L 501.2300, L500.2500, L100.0100 ####[facility] [address] [place], [address] RBC (Bld) [#/Vol] 4.25 10*6/uL Normal 4.2-5.4 [facility] Comment on above: Performed By: #### L 501.2300, L500.2500, L100.0100 ####[facility] [address] [place], [address] RDW SD 54.0 fl High 35.1-43.9 [facility] Comment on above: Performed By: #### L 501.2300, L500.2500, L100.0100 ####[facility] [address] [place], [address] WBC (Bld) [#/Vol] 22.3 10*3/uL High 4.4-11.0 [facility] Comment on above: Performed By: #### L 501.2300, L500.2500, L100.0100 ####[facility] [address] [place], [address] Consultation - Cardiologyon 06-26-2025 Consultation - Cardiology Normal [facility] Consultation - Infectious Dx on 06-26-2025 Consultation - Infectious Dx Normal [facility] Consultation - Surgicalon Consultation - Surgical Normal [facility] Magnesiumon 06-26-2025 Magnesium [Mass/Vol] 2.1 mg/dL Normal 1.5-2.2 [facility] Comment on above: Performed By: #### L 501.5200 ####[facility] [address] [place], [address] Phosphoruson 06-26-2025 Phosphate [Mass/Vol] 6.5 mg/dL High 2.7-4.5 [facility] Comment on above: Performed By: #### L 501.2300, L500.2500, L100.0100 ####[facility] [address] [place], [address] Urinalysis, Completeon 06-26 EPI,TRANSITION 0-5 SEEN Normal 0-5 [facility] Comment on above: Order Comment: COLOR OF URINE MAY AFFECT DIPSTICK RESULTS.MICROGRAPHICS SERVICES SUPERVISOR TO SPECIFY Performed By: #### L 400.0001, M100.2200 ####[facility] [address] [place], [address] CAST,FINE GRAN 5-10 SEEN Normal 0-5 [facility] Comment on above: Order Comment: COLOR OF URINE MAY AFFECT DIPSTICK RESULTS.MICROGRAPHICS SERVICES SUPERVISOR TO SPECIFY Performed By: #### L 400.0001, M100.2200 ####[facility] [address] [place], [address] EPI,RENAL 0-5 SEEN Normal 0-5 [facility] Comment on above: Order Comment: COLOR OF URINE MAY AFFECT DIPSTICK RESULTS.MICROGRAPHICS SERVICES SUPERVISOR TO SPECIFY Performed By: #### L 400.0001, M100.2200 ####[facility] [address] [place], [address] BACTERIA 3+ /hpf Normal None Seen [facility] Comment on above: Order Comment: COLOR OF URINE MAY AFFECT DIPSTICK RESULTS.MICROGRAPHICS SERVICES SUPERVISOR TO SPECIFY Performed By: #### L 400.0001, M100.2200 ####[facility] [address] [place], [address] EPI,SQUAMOUS 0-5 SEEN Normal 5-10 [facility] Comment on above: Order Comment: COLOR OF URINE MAY AFFECT DIPSTICK RESULTS.MICROGRAPHICS SERVICES SUPERVISOR TO SPECIFY Performed By: #### L 400.0001, M100.2200 ####[facility] [address] [place], [address] RBC 50-100 SEEN Normal 0-5 [facility] Comment on above: Order Comment: COLOR OF URINE MAY AFFECT DIPSTICK RESULTS.MICROGRAPHICS SERVICES SUPERVISOR TO SPECIFY Performed By: #### L 400.0001, M100.2200 ####[facility] [address] [place], [address] WBC 50-100 SEEN Normal 0-5 [facility] Comment on above: Order Comment: COLOR OF URINE MAY AFFECT DIPSTICK RESULTS.MICROGRAPHICS SERVICES SUPERVISOR TO SPECIFY Performed By: #### L 400.0001, M100.2200 ####[facility] [address] [place], [address] Mucus Ql (Urine sed) 0 SEEN Normal [facility] Comment on above: Order Comment: COLOR OF URINE MAY AFFECT DIPSTICK RESULTS.MICROGRAPHICS SERVICES SUPERVISOR TO SPECIFY Performed By: #### L 400.0001, M100.2200 ####[facility] [address] [place], [address] 12 Lead EKGon 06-25-2025 12 Lead EKG Normal [facility] Abdomen/Pelvis without Conto n 06-25-2025 Abdomen/Pelvis without Cont Normal [facility] Absolute lymphocyte countOrd ered By: Love Rushing on 06-25-2025 Lymphocytes Auto (Unsp spec) [#/Vol] 0.58 10*3/uL Low 0.83-4.51 [facility] Absolute neutrophil countOrd ered By: Love Rushing on 06-25-2025 Neutrophils (Bld) [#/Vol] 18.8 10*3/uL High 2.0-7.7 [facility] Ammoniaon 06-25-2025 Ammonia (P) [Moles/Vol] 25.7 umol/L Normal [facility] Comment on above: Result Comment: Hemo lysis present, Results??could be affected.?? Performed By: #### L 503.5510 ####[facility] [address] [place], [address] Anion gap in Serum or Plasma Ordered By: Love Rushing on 06-25-2025 Anion gap [Moles/Vol] 18 mmol/L High 5-15 [facility] Automated lymphocyte count a s percentage of total leukocytesOrdered By: Love Rushing on 06-25-2025 Lymphocytes/100 WBC Auto (Unsp spec) 2.8 % Low 19-41 [facility] BUN/creatinine ratioOrdered By: Love Rushing on 06-25-2025 Urea nitrogen/Creatinine [Mass ratio] 10.2 mg/mg 10-20 [facility] Basophil percentageOrdered B y: Love Rushing on 06-25-2025 Basophils/100 WBC (Bld) 0.2 % 0-1 [facility] Bedside Glucoseon 06-25-2025 FINGERSTICK GLU 207 mg/dL High 74-106 [facility] Comment on above: Result Comment: RONNIE GEMENT OF PATIENT CARE PER NURSING PROTOCOL Performed By: #### L 501.080 ####[facility] [address] [place], [address] FINGERSTICK GLU 175 mg/dL High 74-106 [facility] Comment on above: Result Comment: RONNIE GEMENT OF PATIENT CARE PER NURSING PROTOCOL Performed By: #### L 501.080 ####[facility] [address] [place], [address] FINGERSTICK GLU 183 mg/dL High 74-106 [facility] Comment on above: Result Comment: RONNIE GEMENT OF PATIENT CARE PER NURSING PROTOCOL Performed By: #### L 501.080 ####[facility] [address] [place], [address] Bilirubin, totalOrdered By: Love Rushing on 06-25-2025 Bilirubin [Mass/Vol] 1.00 mg/dL 0.00-1.30 [facility] Blood Gases by CPSon 025 Base excess Calc (Bld) [Moles/Vol] -3 mmol/L Low -2 to +2 [facility] Comment on above: Performed By: #### L 9000.0800 ####[facility] [address] [place], [address] Blood Gas Type ART [facility] Comment on above: Performed By: #### L 0.08 ####[facility] [address] [place], [address] CO2 [Moles/Vol] 23 mmol/L [facility] Comment on above: Performed By: #### L 9000.0800 ####[facility] [address] [place], [address] FI02 100.0 Normal [facility] Comment on above: Performed By: #### L 9000.0800 ####[facility] [address] [place], [address] HCO3 (Bld) [Moles/Vol] 21.8 mmol/L Low 22-26 [facility] Comment on above: Performed By: #### L 9000.0800 ####[facility] [address] [place], [address] Mode AC Normal [facility] Comment on above: Performed By: #### L 9000.0800 ####[facility] [address] [place], [address] O2 Delivery Dev Adult Vent Normal [facility] Comment on above: Performed By: #### L 9000.0800 ####[facility] [address] [place], [address] pCO2 33.8 mmHg Low 35-45 [facility] Comment on above: Performed By: #### L 0.0800 ####[facility] [address] [place], [address] PEEP 5 Normal [facility] Comment on above: Performed By: #### L 9000.0800 ####[facility] [address] [place], [address] pH (Bld) 7.42 [pH] Normal 7.35-7.45 [facility] Comment on above: Performed By: #### L 9000.0800 ####[facility] [address] [place], [address] PO2 202 mmHG High 75-100 [facility] Comment on above: Performed By: #### L 8999.0800 ####[facility] [address] [place], [address] RR 18 Normal [facility] Comment on above: Performed By: #### L 8999.0800 ####[facility] [address] [place], [address] SITE L Brach Normal [facility] Comment on above: Performed By: #### L 900.0800 ####[facility] [address] [place], [address] SO2 100 High 95-99 [facility] Comment on above: Performed By: #### L 0.0800 ####[facility] [address] [place], [address] Vt 450.0 mL Normal [facility] Comment on above: Performed By: #### L 9000.0800 ####[facility] [address] [place], [address] Brain/Head without Contrasto n 06-25-2025 Brain/Head without Contrast Normal [facility] CBC W/Diff, Automatedon 08- Absolute Lymph 0.85 X10 3/uL Normal 0.83-4.51 [facility] Comment on above: Performed By: #### L 500.4050, L100.0100 ####[facility] [address] [place], [address] Absolute Neut 14.5 X10 3/uL High 2.0-7.7 [facility] Comment on above: Performed By: #### L 500.4050, L100.0100 ####[facility] [address] [place], [address] Basophils/100 WBC (Bld) 0.2 % Normal 0-1 [facility] Comment on above: Performed By: #### L 500.4050, L100.0100 ####[facility] [address] [place], [address] Eosinophils/100 WBC (Bld) 0.1 % Normal 0-5 [facility] Comment on above: Performed By: #### L 500.4050, L100.0100 ####[facility] [address] [place], [address] Erythrocyte distribution width (RBC) [Ratio] 16.9 % High 11.6-14.6 [facility] Comment on above: Performed By: #### L 500.4050, L100.0100 ####[facility] [address] [place], [address] Hematocrit (Bld) [Volume fraction] 38.9 % Normal 37-47 [facility] Comment on above: Performed By: #### L 500.4050, L100.0100 ####[facility] [address] [place], [address] Hemoglobin (Bld) [Mass/Vol] 12.3 g/dL Normal 12.0-15.0 [facility] Comment on above: Performed By: #### L 500.4050, L100.0100 ####[facility] [address] [place], [address] IG% 1.800 High 0.0-0.9 [facility] Comment on above: Result Comment: IG% - Immature Granulocytes (promyelocytes, myelocytes andmetamyelocytes) > 1% indicates that a LEFT SHIFT is Present. Performed By: #### L 500.4050, L100.0100 ####[facility] [address] [place], [address] Lymphocytes/100 WBC (Bld) 5.2 % Low 19-41 [facility] Comment on above: Performed By: #### L 500.4050, L100.0100 ####[facility] [address] [place], [address] MCH (RBC) [Entitic mass] 29.7 pg Normal 27.0-32.0 [facility] Comment on above: Performed By: #### L 500.4050, L100.0100 ####[facility] [address] [place], [address] MCHC (RBC) [Mass/Vol] 31.6 g/dL Low 32-36 [facility] Comment on above: Performed By: #### L 500.4050, L100.0100 ####[facility] [address] [place], [address] MCV (RBC) [Entitic vol] 94.0 fL Normal 81-99 [facility] Comment on above: Performed By: #### L 500.4050, L100.0100 ####[facility] [address] [place], [address] Monocytes/100 WBC (Bld) 3.7 % Normal 0-10 [facility] Comment on above: Performed By: #### L 500.4050, L100.0100 ####[facility] [address] [place], [address] Neutrophils/100 WBC (Bld) 89.0 % High 47-70 [facility] Comment on above: Performed By: #### L 500.4050, L100.0100 ####[facility] [address] [place], [address] Nucleated RBC (Bld) [#/Vol] 1.6 10*3/uL Normal 0-5 [facility] Comment on above: Performed By: #### L 500.4050, L100.0100 ####[facility] [address] [place], [address] Platelet mean volume (Bld) [Entitic vol] 10.6 fL Normal 6.2-12.0 [facility] Comment on above: Performed By: #### L 500.4050, L100.0100 ####[facility] [address] [place], [address] Platelets (Bld) [#/Vol] 208 10*3/uL Normal 150-450 [facility] Comment on above: Performed By: #### L 500.4050, L100.0100 ####[facility] [address] [place], [address] RBC (Bld) [#/Vol] 4.14 10*6/uL Low 4.2-5.4 [facility] Comment on above: Performed By: #### L 500.4050, L100.0100 ####[facility] [address] [place], [address] RDW SD 57.9 fl High 35.1-43.9 [facility] Comment on above: Performed By: #### L 500.4050, L100.0100 ####[facility] [address] [place], [address] WBC (Bld) [#/Vol] 16.3 10*3/uL High 4.4-11.0 [facility] Comment on above: Performed By: #### L 500.4050, L100.0100 ####[facility] [address] [place], [address] Absolute Lymph 0.58 X10 3/uL Low 0.83-4.51 [facility] Comment on above: Performed By: #### L 100.0100, L501.5200, L501.4021, L500.4050 ####[facility] [address] [place], [address] Absolute Neut 18.8 X10 3/uL High 2.0-7.7 [facility] Comment on above: Performed By: #### L 100.0100, L501.5200, L501.4021, L500.4050 ####[facility] [address] [place], [address] Basophils/100 WBC (Bld) 0.2 % Normal 0-1 [facility] Comment on above: Performed By: #### L 100.0100, L501.5200, L501.4021, L500.4050 ####[facility] [address] [place], [address] Eosinophils/100 WBC (Bld) 0.0 % Normal 0-5 [facility] Comment on above: Performed By: #### L 100.0100, L501.5200, L501.4021, L500.4050 ####[facility] [address] [place], [address] Erythrocyte distribution width (RBC) [Ratio] 16.6 % High 11.6-14.6 [facility] Comment on above: Performed By: #### L 100.0100, L501.5200, L501.4021, L500.4050 ####[facility] [address] [place], [address] Hematocrit (Bld) [Volume fraction] 38.9 % Normal 37-47 [facility] Comment on above: Performed By: #### L 100.0100, L501.5200, L501.4021, L500.4050 ####[facility] [address] [place], [address] Hemoglobin (Bld) [Mass/Vol] 12.2 g/dL Normal 12.0-15.0 [facility] Comment on above: Performed By: #### L 100.0100, L501.5200, L501.4021, L500.4050 ####[facility] [address] [place], [address] IG% 0.900 Normal 0.0-0.9 [facility] Comment on above: Result Comment: IG% - Immature Granulocytes (promyelocytes, myelocytes andmetamyelocytes) > 1% indicates that a LEFT SHIFT is Present. Performed By: #### L 100.0100, L501.5200, L501.4021, L500.4050 ####[facility] [address] [place], [address] Lymphocytes/100 WBC (Bld) 2.8 % Low 19-41 [facility] Comment on above: Performed By: #### L 100.0100, L501.5200, L501.4021, L500.4050 ####[facility] [address] [place], [address] MCH (RBC) [Entitic mass] 29.0 pg Normal 27.0-32.0 [facility] Comment on above: Performed By: #### L 100.0100, L501.5200, L501.4021, L500.4050 ####[facility] [address] [place], [address] MCHC (RBC) [Mass/Vol] 31.4 g/dL Low 32-36 [facility] Comment on above: Performed By: #### L 100.0100, L501.5200, L501.4021, L500.4050 ####[facility] [address] [place], [address] MCV (RBC) [Entitic vol] 92.4 fL Normal 81-99 [facility] Comment on above: Performed By: #### L 100.0100, L501.5200, L501.4021, L500.4050 ####[facility] [address] [place], [address] Monocytes/100 WBC (Bld) 5.2 % Normal 0-10 [facility] Comment on above: Performed By: #### L 100.0100, L501.5200, L501.4021, L500.4050 ####[facility] [address] [place], [address] Neutrophils/100 WBC (Bld) 90.9 % High 47-70 [facility] Comment on above: Performed By: #### L 100.0100, L501.5200, L501.4021, L500.4050 ####[facility] [address] [place], [address] Nucleated RBC (Bld) [#/Vol] 0.4 10*3/uL Normal 0-5 [facility] Comment on above: Performed By: #### L 100.0100, L501.5200, L501.4021, L500.4050 ####[facility] [address] [place], [address] Platelet mean volume (Bld) [Entitic vol] 10.4 fL Normal 6.2-12.0 [facility] Comment on above: Performed By: #### L 100.0100, L501.5200, L501.4021, L500.4050 ####[facility] [address] [place], [address] Platelets (Bld) [#/Vol] 225 10*3/uL Normal 150-450 [facility] Comment on above: Performed By: #### L 100.0100, L501.5200, L501.4021, L500.4050 ####[facility] [address] [place], [address] RBC (Bld) [#/Vol] 4.21 10*6/uL Normal 4.2-5.4 [facility] Comment on above: Performed By: #### L 100.0100, L501.5200, L501.4021, L500.4050 ####[facility] [address] [place], [address] RDW SD 54.7 fl High 35.1-43.9 [facility] Comment on above: Performed By: #### L 100.0100, L501.5200, L501.4021, L500.4050 ####[facility] [address] [place], [address] WBC (Bld) [#/Vol] 20.7 10*3/uL High 4.4-11.0 [facility] Comment on above: Performed By: #### L 100.0100, L501.5200, L501.4021, L500.4050 ####[facility] [address] [place], [address] CO2 (BldV) [Moles/Vol]Ordere d By: Love Rushing on 06-25-2025 CO2 [Moles/Vol] 32 mmol/L 23-33 [facility] CPK Total, Creatine Kinaseon 06-25-2025 CPK TOTAL 119 U/L Normal 24-195 [facility] Comment on above: Order Comment: Comme nts: DC when propofol is d/c'd Performed By: #### L 501.3620, L501.5000 ####[facility] [address] [place], [address] CTA Chest W/WO Contraston CTA Chest W/WO Contrast Normal [facility] Carbon dioxide, total [Moles /volume] in Central venous bloodOrdered By: Love Kristan on 06-25-2025 CO2 [Moles/Vol] 25.0 mmol/L 21.0-32.0 [facility] Chest 1 View (Portable)on Chest 1 View (Portable) Normal [facility] Chloride assayOrdered By: Priscila la Rushing on 06-25-2025 Chloride [Moles/Vol] 91 mmol/L Low 98-108 [facility] Comprehensive Metabolic Prof ilon 06-25-2025 Albumin [Mass/Vol] 3.3 g/dL Low 3.4-4.8 [facility] Comment on above: Order Comment: REDRA W. PREVIOUS SPECIMEN REJECTED DUE TOHEMOLYSIS. 06/25/25727 Teri Olmos. Performed By: #### L 501.9520, L501.5200, L500.4050, L499.0043, L501.2300 ####[facility] [address] [place], [address] Albumin/Globulin [Mass ratio] 1.3 {ratio} Normal 0.9-2.4 [facility] Comment on above: Order Comment: REDRA W. PREVIOUS SPECIMEN REJECTED DUE TOHEMOLYSIS. 06/25/25727 Teri Olmos. Performed By: #### L 501.9520, L501.5200, L500.4050, L499.0043, L501.2300 ####[facility] [address] [place], [address] ALK PHOS 254 U/L High 35-104 [facility] Comment on above: Order Comment: REDRA W. PREVIOUS SPECIMEN REJECTED DUE TOHEMOLYSIS. 06/25/25727 Teri Olmos. Performed By: #### L 501.9520, L501.5200, L500.4050, L499.0043, L501.2300 ####[facility] [address] [place], [address] ALT [Catalytic activity/Vol] 56 U/L High <=34 [facility] Comment on above: Order Comment: REDRA W. PREVIOUS SPECIMEN REJECTED DUE TOHEMOLYSIS. 06/25/25727 Teri Olmos. Performed By: #### L 501.9520, L501.5200, L500.4050, L499.0043, L501.2300 ####[facility] [address] [place], [address] AST [Catalytic activity/Vol] 90 U/L High <=31 [facility] Comment on above: Order Comment: REDRA W. PREVIOUS SPECIMEN REJECTED DUE TOHEMOLYSIS. 06/25/25727 Teri Olmos. Performed By: #### L 501.9520, L501.5200, L500.4050, L499.0043, L501.2300 ####[facility] [address] [place], [address] Bilirubin [Mass/Vol] 1.02 mg/dL Normal 0.00-1.30 [facility] Comment on above: Order Comment: REDRA W. PREVIOUS SPECIMEN REJECTED DUE TOHEMOLYSIS. 06/25/25727 Teri Olmos. Performed By: #### L 501.9520, L501.5200, L500.4050, L499.0043, L501.2300 ####[facility] [address] [place], [address] BUN/CRE 9.8 RATIO Low 10-20 [facility] Comment on above: Order Comment: REDRA W. PREVIOUS SPECIMEN REJECTED DUE TOHEMOLYSIS. 06/25/25727 Teri Olmos. Performed By: #### L 501.9520, L501.5200, L500.4050, L499.0043, L501.2300 ####[facility] [address] [place], [address] Calcium [Mass/Vol] 7.8 mg/dL Normal 7.6-11.0 [facility] Comment on above: Order Comment: REDRA W. PREVIOUS SPECIMEN REJECTED DUE TOHEMOLYSIS. 06/25/25727 Teri Olmos. Performed By: #### L 501.9520, L501.5200, L500.4050, L499.0043, L501.2300 ####[facility] [address] [place], [address] Chloride [Moles/Vol] 95 mmol/L Low 98-108 [facility] Comment on above: Order Comment: REDRA W. PREVIOUS SPECIMEN REJECTED DUE TOHEMOLYSIS. 06/25/25727 Teri Olmos. Performed By: #### L 501.9520, L501.5200, L500.4050, L499.0043, L501.2300 ####[facility] [address] [place], [address] CO2 [Moles/Vol] 18.5 mmol/L Low 21.0-32.0 [facility] Comment on above: Order Comment: REDRA W. PREVIOUS SPECIMEN REJECTED DUE TOHEMOLYSIS. 06/25/25727 Teri Allenzano. Performed By: #### L 501.9520, L501.5200, L500.4050, L499.0043, L501.2300 ####[facility] [id number] [place], [address] Creatinine [Mass/Vol] 5.61 mg/dL High 0.70-1.20 [facility] Comment on above: Order Comment: REDRA W. PREVIOUS SPECIMEN REJECTED DUE TOHEMOLYSIS. 06/25/25727 Teri Allenzano. Performed By: #### L 501.9520, L501.5200, L500.4050, L499.0043, L501.2300 ####[facility] [id number] [place], [address] ECRCL 8.92 ml/min Invalid Interpretation Code 50-250 [facility] Comment on above: Order Comment: REDRA W. PREVIOUS SPECIMEN REJECTED DUE TOHEMOLYSIS. 06/25/25727 Teri Allenzano. Performed By: #### L 501.9520, L501.5200, L500.4050, L499.0043, L501.2300 ####[facility] [id number] [place], [address] GAP 21 High 5-15 [facility] Comment on above: Order Comment: MAGO W. PREVIOUS SPECIMEN REJECTED DUE TOHEMOLYSIS. 06/25/25727 Teri Olmos. Performed By: #### L 501.9520, L501.5200, L500.4050, L499.0043, L501.2300 ####[facility] [address] [place], [address] GFR/1.73 sq M.predicted among non-blacks MDRD (S/P/Bld) [Vol rate/Area] 7 mL/min/{1.73_m2} Low >60 [facility] Comment on above: Order Comment: RED W. PREVIOUS SPECIMEN REJECTED DUE TOHEMOLYSIS. 06/25/25727 Teri Olmos. Result Comment: mL/m in/1.73m2 CKD-EPI Creatinine Equation (2020) Performed By: #### L 501.9520, L501.5200, L500.4050, L499.0043, L501.2300 ####[facility] [address] [place], [address] Globulin (S) [Mass/Vol] 2.5 g/dL Normal 2.2-4.2 [facility] Comment on above: Order Comment: RED W. PREVIOUS SPECIMEN REJECTED DUE TOHEMOLYSIS. 06/25/25727 Teri Olmos. Performed By: #### L 501.9520, L501.5200, L500.4050, L499.0043, L501.2300 ####[facility] [address] [place], [address] Glucose [Mass/Vol] 204 mg/dL High 70-99 [facility] Comment on above: Order Comment: MAGO W. PREVIOUS SPECIMEN REJECTED DUE TOHEMOLYSIS. 06/25/25727 Teri Olmos. Performed By: #### L 501.9520, L501.5200, L500.4050, L499.0043, L501.2300 ####[facility] [address] [place], [address] Potassium [Moles/Vol] 5.0 mmol/L Normal 3.3-5.1 [facility] Comment on above: Order Comment: REDRA W. PREVIOUS SPECIMEN REJECTED DUE TOHEMOLYSIS. 06/25/25727 Teri Olmos. Performed By: #### L 501.9520, L501.5200, L500.4050, L499.0043, L501.2300 ####[facility] [address] [place], [address] Sodium [Moles/Vol] 135 mmol/L Normal 133-145 [facility] Comment on above: Order Comment: REDRA W. PREVIOUS SPECIMEN REJECTED DUE TOHEMOLYSIS. 06/25/25727 Teri Olmos. Performed By: #### L 501.9520, L501.5200, L500.4050, L499.0043, L501.2300 ####[facility] [address] [place], [address] T PROT 5.8 g/dL Low 5.9-8.4 [facility] Comment on above: Order Comment: REDRA W. PREVIOUS SPECIMEN REJECTED DUE TOHEMOLYSIS. 06/25/25727 Teri Olmos. Performed By: #### L 501.9520, L501.5200, L500.4050, L499.0043, L501.2300 ####[facility] [address] [place], [address] Urea nitrogen [Mass/Vol] 55 mg/dL High 4-19 [facility] Comment on above: Order Comment: REDRA W. PREVIOUS SPECIMEN REJECTED DUE TOHEMOLYSIS. 06/25/25727 Teri Olmos. Performed By: #### L 501.9520, L501.5200, L500.4050, L499.0043, L501.2300 ####[facility] [address] [place], [address] ALB Normal 3.4-4.8 [facility] Comment on above: Result Comment: This specimen has been REJECTED due to Laboratory criteria:Hemolyzed.CASH has been notified of need of recollection.06/25/25726 Teri Olmos Performed By: #### L 500.4050, L100.0100 ####[facility] [address] [place], [address] ALK PHOS Normal 35-104 [facility] Comment on above: Result Comment: This specimen has been REJECTED due to Laboratory criteria:Hemolyzed.CASH has been notified of need of recollection.06/25/25726 Teri Olmos Performed By: #### L 500.4050, L100.0100 ####[facility] [address] [place], [address] ALT Normal <=34 [facility] Comment on above: Result Comment: This specimen has been REJECTED due to Laboratory criteria:Hemolyzed.CASH has been notified of need of recollection.06/25/25726 Teri Olmos Performed By: #### L 500.4050, L100.0100 ####[facility] [address] [place], [address] AST Normal <=31 [facility] Comment on above: Result Comment: This specimen has been REJECTED due to Laboratory criteria:Hemolyzed.CASH has been notified of need of recollection.06/25/25726 Teri Olmos Performed By: #### L 500.4050, L100.0100 ####[facility] [address] [place], [address] BUN Normal 4-19 [facility] Comment on above: Result Comment: This specimen has been REJECTED due to Laboratory criteria:Hemolyzed.CASH has been notified of need of recollection.06/25/25726 Teri Olmos Performed By: #### L 500.4050, L100.0100 ####[facility] [address] [place], [address] BUN/CRE Normal 10-20 [facility] Comment on above: Result Comment: This specimen has been REJECTED due to Laboratory criteria:Hemolyzed.CASH has been notified of need of recollection.06/25/25726 Teri Olmos Performed By: #### L 500.4050, L100.0100 ####[facility] [address] [place], [address] Calcium Normal 7.6-11.0 [facility] Comment on above: Result Comment: This specimen has been REJECTED due to Laboratory criteria:Hemolyzed.CASH has been notified of need of recollection.06/25/25726 Teri Olmos Performed By: #### L 500.4050, L100.0100 ####[facility] [address] [place], [address] CL Normal 98-108 [facility] Comment on above: Result Comment: This specimen has been REJECTED due to Laboratory criteria:Hemolyzed.CASH has been notified of need of recollection.06/25/25726 Teri Olmos Performed By: #### L 500.4050, L100.0100 ####[facility] [address] [place], [address] CO2 Normal 21.0-32.0 [facility] Comment on above: Result Comment: This specimen has been REJECTED due to Laboratory criteria:Hemolyzed.CASH has been notified of need of recollection.06/25/25726 Teri Olmos Performed By: #### L 500.4050, L100.0100 ####[facility] [address] [place], [address] CREAT,SERUM Normal 0.70-1.20 [facility] Comment on above: Result Comment: This specimen has been REJECTED due to Laboratory criteria:Hemolyzed.CASH has been notified of need of recollection.06/25/25726 Teri Olmos Performed By: #### L 500.4050, L100.0100 ####[facility] [address] [place], [address] eGFR Normal >60 [facility] Comment on above: Result Comment: This specimen has been REJECTED due to Laboratory criteria:Hemolyzed.CASH has been notified of need of recollection.06/25/25726 Teri Olmos Performed By: #### L 500.4050, L100.0100 ####[facility] [address] [place], [address] GAP Normal 5-15 [facility] Comment on above: Result Comment: This specimen has been REJECTED due to Laboratory criteria:Hemolyzed.CASH has been notified of need of recollection.06/25/25726 Teri Olmos Performed By: #### L 500.4050, L100.0100 ####[facility] [address] [place], [address] GLU Normal 70-99 [facility] Comment on above: Result Comment: This specimen has been REJECTED due to Laboratory criteria:Hemolyzed.CASH has been notified of need of recollection.06/25/25726 Teri Olmos Performed By: #### L 500.4050, L100.0100 ####[facility] [address] [place], [address] Potassium Normal 3.3-5.1 [facility] Comment on above: Result Comment: This specimen has been REJECTED due to Laboratory criteria:Hemolyzed.CASH has been notified of need of recollection.06/25/25726 Teri Olmos Performed By: #### L 500.4050, L100.0100 ####[facility] [address] [place], [address] T BILI Normal 0.00-1.30 [facility] Comment on above: Result Comment: This specimen has been REJECTED due to Laboratory criteria:Hemolyzed.CASH has been notified of need of recollection.06/25/25726 Teri Olmos Performed By: #### L 500.4050, L100.0100 ####[facility] [address] [place], [address] T PROT Normal 5.9-8.4 [facility] Comment on above: Result Comment: This specimen has been REJECTED due to Laboratory criteria:Hemolyzed.CASH has been notified of need of recollection.06/25/25726 Teri Olmos Performed By: #### L 500.4050, L100.0100 ####[facility] [address] [place], [address] Comprehensive Metabolic Profil Normal 133-145 [facility] Comment on above: Result Comment: This specimen has been REJECTED due to Laboratory criteria:Hemolyzed.CASH has been notified of need of recollection.06/25/25726 Teri Olmos Performed By: #### L 500.4050, L100.0100 ####[facility] [address] [place], [address] Albumin [Mass/Vol] 3.7 g/dL Normal 3.4-4.8 [facility] Comment on above: Performed By: #### L 100.0100, L501.5200, L501.4021, L500.4050 ####[facility] [address] [place], [address] Albumin/Globulin [Mass ratio] 1.3 {ratio} Normal 0.9-2.4 [facility] Comment on above: Performed By: #### L 100.0100, L501.5200, L501.4021, L500.4050 ####[facility] [address] [place], [address] ALK PHOS 231 U/L High 35-104 [facility] Comment on above: Performed By: #### L 100.0100, L501.5200, L501.4021, L500.4050 ####[facility] [address] [place], [address] ALT [Catalytic activity/Vol] 53 U/L High <=34 [facility] Comment on above: Performed By: #### L 100.0100, L501.5200, L501.4021, L500.4050 ####[facility] [address] [place], [address] AST [Catalytic activity/Vol] 66 U/L High <=31 [facility] Comment on above: Performed By: #### L 100.0100, L501.5200, L501.4021, L500.4050 ####[facility] [address] [place], [address] Bilirubin [Mass/Vol] 1.00 mg/dL Normal 0.00-1.30 [facility] Comment on above: Performed By: #### L 100.0100, L501.5200, L501.4021, L500.4050 ####[facility] [address] [place], [address] BUN/CRE 10.2 RATIO Normal 10-20 [facility] Comment on above: Performed By: #### L 100.0100, L501.5200, L501.4021, L500.4050 ####[facility] [address] [place], [address] Calcium [Mass/Vol] 8.6 mg/dL Normal 7.6-11.0 [facility] Comment on above: Performed By: #### L 100.0100, L501.5200, L501.4021, L500.4050 ####[facility] [address] [place], [address] Chloride [Moles/Vol] 91 mmol/L Low 98-108 [facility] Comment on above: Performed By: #### L 100.0100, L501.5200, L501.4021, L500.4050 ####[facility] [address] [place], [address] CO2 [Moles/Vol] 25.0 mmol/L Normal 21.0-32.0 [facility] Comment on above: Performed By: #### L 100.0100, L501.5200, L501.4021, L500.4050 ####[facility] [address] [place], [address] Creatinine [Mass/Vol] 5.40 mg/dL High 0.70-1.20 [facility] Comment on above: Performed By: #### L 100.0100, L501.5200, L501.4021, L500.4050 ####[facility] [address] [place], [address] ECRCL 9.45 ml/min Invalid Interpretation Code 50-250 [facility] Comment on above: Performed By: #### L 100.0100, L501.5200, L501.4021, L500.4050 ####[facility] [address] [place], [address] GAP 18 High 5-15 [facility] Comment on above: Performed By: #### L 100.0100, L501.5200, L501.4021, L500.4050 ####[facility] [address] [place], [address] GFR/1.73 sq M.predicted among non-blacks MDRD (S/P/Bld) [Vol rate/Area] 8 mL/min/{1.73_m2} Low >60 [facility] Comment on above: Result Comment: mL/m in/1.73m2 CKD-EPI Creatinine Equation (2020) Performed By: #### L 100.0100, L501.5200, L501.4021, L500.4050 ####[facility] [address] [place], [address] Globulin (S) [Mass/Vol] 2.9 g/dL Normal 2.2-4.2 [facility] Comment on above: Performed By: #### L 100.0100, L501.5200, L501.4021, L500.4050 ####[facility] [address] [place], [address] Glucose [Mass/Vol] 232 mg/dL High 70-99 [facility] Comment on above: Performed By: #### L 100.0100, L501.5200, L501.4021, L500.4050 ####[facility] [address] [place], [address] Potassium [Moles/Vol] 4.1 mmol/L Normal 3.3-5.1 [facility] Comment on above: Performed By: #### L 100.0100, L501.5200, L501.4021, L500.4050 ####[facility] [address] [place], [address] Sodium [Moles/Vol] 134 mmol/L Normal 133-145 [facility] Comment on above: Performed By: #### L 100.0100, L501.5200, L501.4021, L500.4050 ####[facility] [address] [place], [address] T PROT 6.6 g/dL Normal 5.9-8.4 [facility] Comment on above: Performed By: #### L 100.0100, L501.5200, L501.4021, L500.4050 ####[facility] [address] [place], [address] Urea nitrogen [Mass/Vol] 55 mg/dL High 4-19 [facility] Comment on above: Performed By: #### L 100.0100, L501.5200, L501.4021, L500.4058 ####[facility] [address] [place], [address] Consultation - Intensiviston 06-25-2025 Consultation - Fish Salter Normal [facility] Consultation - Nephrologyon 06-25-2025 Consultation - Nephrology Normal [facility] Echo Completeon 06-25-2025 Echo Complete Normal [facility] Emergency Department Summary on 06-25-2025 Emergency Department Summary Normal [facility] Eosinophil percentageOrdered By: Love Rushing on 06-25-2025 Eosinophils/100 WBC (Bld) 0.0 % 0-5 [facility] Erythrocyte distribution wid th ratioOrdered By: Love Rushing on 06-25-2025 Erythrocyte distribution width (RBC) [Ratio] 16.6 % High 11.6-14.6 [facility] Erythrocyte distribution wid th standard deviationOrdered By: Love Rushing on 06-25-2025 Erythrocyte distribution width (RBC) [Ratio] 54.7 fl High 35.1-43.9 [facility] Glomerular filtration rate ( GFR) estimation/1.73 sq m using serum, plasma, or whole bOrdered By: Love Rushing on 06-25-2025 GFR/1.73 sq M.predicted among non-blacks MDRD (S/P/Bld) [Vol rate/Area] 8 mL/min/{1.73_m2} Low >60 [facility] Comment on above: mL/min/1.73m2 CKD-EP I Creatinine Equation (2020) H AND P Exam - Hospitaliston 06-25-2025 H&P Exam - Hospitalist Normal [facility] Hematocrit Auto (Bld) [Volum e fraction]Ordered By: Love Rushing on 06-25-2025 Hematocrit (Bld) [Volume fraction] 38.9 % 37-47 [facility] Hemoglobin measurementOrdere d By: Love Rushing on 06-25-2025 Hemoglobin (Bld) [Mass/Vol] 12.2 g/dL 12.0-15.0 [facility] Immature granulocytes/100 WB C Auto (Bld)Ordered By: Love Rushing on 06-25-2025 Immature granulocytes/100 WBC (Bld) 0.900 % 0.0-0.9 [facility] Comment on above: IG% - Immature Granu locytes (promyelocytes, myelocytes and metamyelocytes) > 1% indicates that a LEFT SHIFT is Present. Influenza virus A and B and SARS-CoV-2 (COVID-19) and Respiratory syncytial virus RNAOrdered By: Love Rushing on 06-25-2025 SARS-CoV-2 (COVID-19) RNA KATYA+probe Ql (Unsp spec) [facility] L501.4021on 06-25-2025 Trop T High Sen 97 ng/L Invalid Interpretation Code <=14 [facility] Comment on above: Result Comment: Crit ical Result(s) Called at: 06-25-25 01:52 to Radha Bansal:??Birdie Ott Results read back by same. Performed By: #### L 100.0100, L501.5200, L501.4021, L500.4050 ####[facility] [address] [place], [address] Laboratory - Chemistry and C hemistry - challengeOrdered By: Love Rushing on 06-25-2025 AST [Catalytic activity/Vol] 66 U/L High <32 [facility] Lactic Acidon 06-25-2025 Lactate [Moles/Vol] 5.8 mmol/L Invalid Interpretation Code 0.0-2.0 [facility] Comment on above: Result Comment: Crit ical Result(s) Called at 0742: by: TERI JASMINE. ??Results read back by same. Performed By: #### L 503.6005 ####[facility] [address] [place], [place], [address] Lactate [Moles/Vol] 2.8 mmol/L Invalid Interpretation Code 0.0-2.0 [facility] Comment on above: Order Comment: Y Result Comment: Crit ical Result(s) Called at: 0252 by:??SHY OTT. Results read back by same. Performed By: #### L 503.6004 ####[facility] [address] [place], [address] Lactic acid measurementOrder ed By: Love Rushing on 06-25-2025 Lactate [Moles/Vol] 2.8 mmol/L High 0.0-2.0 [facility] Comment on above: Critical Result(s) C alled at: 0252 by: SHY ZUÑIGA TO SHON OTT. Results read back by same. M100.678on 06-25-2025 M100.678 Normal Reference Ran ge = Negative FLUABV+SARS-CoV-2+RSV Pnl Resp KATYA+probe GeneXpert Instrument, PCR method SARS-CoV-2 (COVID 19) Negative INFLUENZA A Negative INFLUENZA B Negative RSV PCR Negative Normal [facility] Comment on above: Performed By: #### M 100.678 ####[facility] [address] [place], [address] MCV (mean corpuscular volume ) determinationOrdered By: Love Rushing on 06-25-2025 MCV (RBC) [Entitic vol] 92.4 fL 81-99 [facility] Magnesiumon 06-25-2025 Magnesium [Mass/Vol] 2.2 mg/dL Normal 1.5-2.2 [facility] Comment on above: Order Comment: MAGO Mijares PREVIOUS SPECIMEN REJECTED DUE TOHEMOLYSIS. 06/25/25 0728 Teri Olmos. Performed By: #### L 501.9520, L501.5200, L500.4050, L499.0043, L501.2300 ####[facility] [address] [place], [address] Magnesium [Mass/Vol] 2.2 mg/dL Normal 1.5-2.2 [facility] Comment on above: Performed By: #### L 100.0100, L501.5200, L501.4021, L500.4050 ####[facility] [address] [place], [address] Magnesium measurement (mass/ volume)Ordered By: Love Rushing on 06-25-2025 Magnesium (Unsp spec) [Mass/Vol] 2.2 mg/dL 1.5-2.2 [facility] Mean corpuscular hemoglobin (MCH) determinationOrdered By: Love Rushing on 06-25-2025 MCH (RBC) [Entitic mass] 29.0 pg 27.0-32.0 [facility] Mean corpuscular hemoglobin concentration (MCHC) determinationOrdered By: Love Rushing on 06-25-2025 MCHC (RBC) [Mass/Vol] 31.4 g/dL Low 32-36 [facility] Mean platelet volume determi nationOrdered By: Love Rushing on 06-25-2025 Platelet mean volume (Bld) [Entitic vol] 10.4 fL 6.2-12.0 [facility] Monocyte percentageOrdered B y: Love Rushing on 06-25-2025 Monocytes/100 WBC (Bld) 5.2 % 0-10 [facility] Neutrophil percentageOrdered By: Lovela Rushing on 06-25-2025 Neutrophils/100 WBC (Bld) 90.9 % High 47-70 [facility] No Panel InformationOrdered By: Love Rushnig on 06-25-2025 Blood Gas Sample Site Not entered [facility] Blood Gas Specimen Type STEFANI [facility] Oxygen Delivery Device Cannula [facility] Nucleated red blood cell per centageOrdered By: Love Rushing on 06-25-2025 Nucleated RBC/100 WBC (Bld) [Ratio] 0.4 % 0-5 [facility] Phosphoruson 06-25-2025 Phosphate [Mass/Vol] 6.7 mg/dL High 2.7-4.5 [facility] Comment on above: Order Comment: MAGO Mijares PREVIOUS SPECIMEN REJECTED DUE TOHEMOLYSIS. 06/25/25 0728 Teri Olmos. Performed By: #### L 501.9520, L501.5200, L500.4050, L499.0043, L501.2300 ####[facility] [address] [place], [address] Platelet countOrdered By: Priscila Rushing on 06-25-2025 Platelets (Bld) [#/Vol] 225 10*3/uL 150-450 [facility] Potassium measurement (mass/ volume)Ordered By: Love Rushing on 06-25-2025 Potassium (Unsp spec) [Mass/Vol] 4.1 mmol/L 3.3-5.1 [facility] Procedure Reporton Procedure Report Normal [facility] RBC Auto (Bld) [#/Vol]Ordere d By: Love Rushing on 06-25-2025 RBC (Bld) [#/Vol] 4.21 10*6/uL 4.2-5.4 [facility] Serum creatinine measurement (mass/volume)Ordered By: Love Rushing on 06-25-2025 Creatinine [Mass/Vol] 5.40 mg/dL High 0.70-1.20 [facility] Serum globulin measurementOr dered By: Love Ruhsing on 06-25-2025 Globulin (S) [Mass/Vol] 2.9 g/dL 2.2-4.2 [facility] Serum glucose measurement (m ass/volume)Ordered By: Love Rushing on 06-25-2025 Glucose [Mass/Vol] 232 mg/dL High 70-99 [facility] Serum or plasma alanine price otransferase (ALT) measurementOrdered By: Love Rushing on 06-25-2025 ALT [Catalytic activity/Vol] 53 U/L High <35 [facility] Serum or plasma albumin ras urement (mass/volume)Ordered By: oLve Rushing on 06-25-2025 Albumin [Mass/Vol] 3.7 g/dL 3.4-4.8 [facility] Serum or plasma albumin/glob ulin mass ratioOrdered By: Love Rushing on 06-25-2025 Albumin/Globulin [Mass ratio] 1.3 {ratio} 0.9-2.4 [facility] Serum or plasma alkaline destini sphatase measurementOrdered By: Love Rushing on 06-25-2025 ALP [Catalytic activity/Vol] 231 U/L High 35-104 [facility] Serum or plasma calcium ras urement (mass/volume)Ordered By: Love Rushing on 06-25-2025 Calcium [Mass/Vol] 8.6 mg/dL 7.6-11.0 [facility] Serum or plasma urea nitroge n measurement (mass/volume)Ordered By: Love Rushing on 06-25-2025 Urea nitrogen [Mass/Vol] 55 mg/dL High 4-19 [facility] Sodium levelOrdered By: Fitz Rushing on 06-25-2025 Sodium [Moles/Vol] 134 mmol/L 133-145 [facility] Spine Cervical without Contr ason 06-25-2025 Spine Cervical without Contras Normal [facility] Thyroid Stim Hormone (TSH)on 06-25-2025 TSH 2.440 uIU/mL Normal 0.300-4.200 [facility] Comment on above: Order Comment: MAGO Mijares PREVIOUS SPECIMEN REJECTED DUE TOHEMOLYSIS. 06/25/25 0728 Teri Olmos. Performed By: #### L 501.9520, L501.5200, L500.4050, L499.0043, L501.2300 ####[facility] [address] [place], [place], [address] Total proteinOrdered By: Rose Rushing on 06-25-2025 Protein [Mass/Vol] 6.6 g/dL 5.9-8.4 [facility] Triglycerideson 06-25-2025 Triglyceride [Mass/Vol] 211 mg/dL High [facility] Comment on above: Order Comment: Comme nts: DC when propofol is d/c'dDC when propofol is d/c'd Result Comment: The drugs N-Acetylcysteine and Metamizole may falselydepress this assay.Normal range: <150 mg/dLBorderline High: 150-199 mg/dLHigh: 200-499 mg/dLVery High: >500 mg/dL Performed By: #### L 501.3620, L501.5000 ####[facility] [address] [place], [address] Troponin T HS 2 HRon 025 Trop T High Sen 94 ng/L Invalid Interpretation Code <=14 [facility] Comment on above: Result Comment: Crit ical Result(s) Called at 0317: by: TERI CA. ??Results read back by same. Performed By: #### L 499.0042 ####[facility] [address] [place], [address] Troponin T HS 4 HRon 025 Trop T High Sen 94 ng/L Invalid Interpretation Code <=14 [facility] Comment on above: Order Comment: RED W. PREVIOUS SPECIMEN REJECTED DUE TOHEMOLYSIS. 06/25/25727 Teri Olmos. Result Comment: Crit ical Result(s) Called at 08: by: TERI OLIVIA. ??Results read back by same. Performed By: #### L 501.9520, L501.5200, L500.4050, L499.0043, L501.2300 ####[facility] [address] [place], [address] Trop T High Sen Normal <=14 [facility] Comment on above: Result Comment: This specimen has been REJECTED due to Laboratory criteria:Hemolyzed.CASH has been notified of need of recollection.06/25/25727 Teri Olmos Performed By: #### L 499.0043 ####[facility] [address] [place], [address] Troponin T.cardiac [Mass/vol ume] in Serum or Plasma by High sensitivity methodOrdered By: Love Rushing on 06-25-2025 Troponin T.cardiac High sensitivity method [Mass/Vol] 94 ng/L High <14 [facility] Comment on above: Critical Result(s) C alled at 0317: by: TERI OLMOS TO DOMENICORTIN. Results read back by same. Troponin T.cardiac High sensitivity method [Mass/Vol] 97 ng/L High <14 [facility] Comment on above: Delta: 159 on -1511Critical Result(s) Called at: 06-25-25 01:52 to Radhajose Machuca by: Birdie Ott Results read back by same. Urinalysis, Completeon 06-25 BACTERIA Normal None Seen [facility] Comment on above: Order Comment: COLLE CTOR TO SPECIFY Result Comment: DUPL ICATE ORDER Performed By: #### L 400.0001 ####[facility] [address] [place], [address] BILIRUBIN URINE Normal Negative [facility] Comment on above: Order Comment: COLLE CTOR TO SPECIFY Result Comment: DUPL ICATE ORDER Performed By: #### L 400.0001 ####[facility] [address] [place], [address] Clarity (U) Normal Clear [facility] Comment on above: Order Comment: COLLE CTOR TO SPECIFY Result Comment: DUPL ICATE ORDER Performed By: #### L 400.0001 ####[facility] [address] [place], [address] Color (U) Normal Yellow [facility] Comment on above: Order Comment: COLLE CTOR TO SPECIFY Result Comment: DUPL ICATE ORDER Performed By: #### L 400.0001 ####[facility] [address] [place], [address] EPI,SQUAMOUS Normal 5-10 [facility] Comment on above: Order Comment: COLLE CTOR TO SPECIFY Result Comment: DUPL ICATE ORDER Performed By: #### L 400.0001 ####[facility] [address] [place], [address] GLUCOSE, UR Normal Normal [facility] Comment on above: Order Comment: COLLE CTOR TO SPECIFY Result Comment: DUPL ICATE ORDER Performed By: #### L 400.0001 ####[facility] [address] [place], [address] KETONE UR Normal Negative [facility] Comment on above: Order Comment: COLLE CTOR TO SPECIFY Result Comment: DUPL ICATE ORDER Performed By: #### L 400.0001 ####[facility] [address] [place], [address] LEUK ESTERASE Normal Negative [facility] Comment on above: Order Comment: COLLE CTOR TO SPECIFY Result Comment: DUPL ICATE ORDER Performed By: #### L 400.0001 ####[facility] [address] [place], [address] Mucus Ql (Urine sed) Normal [facility] Comment on above: Order Comment: COLLE CTOR TO SPECIFY Result Comment: DUPL ICATE ORDER Performed By: #### L 400.0001 ####[facility] [address] [place], [address] Nitrite Ql (U) Normal Negative [facility] Comment on above: Order Comment: COLLE CTOR TO SPECIFY Result Comment: DUPL ICATE ORDER Performed By: #### L 400.0001 ####[facility] [address] [place], [address] OCCULT BLOOD-UR Normal Negative [facility] Comment on above: Order Comment: COLLE CTOR TO SPECIFY Result Comment: DUPL ICATE ORDER Performed By: #### L 400.0001 ####[facility] [address] [place], [address] pH UR Normal 5.0 - 8.0 [facility] Comment on above: Order Comment: COLLE CTOR TO SPECIFY Result Comment: DUPL ICATE ORDER Performed By: #### L 400.0001 ####[facility] [address] [place], [address] PROT DIPSTX Normal Negative [facility] Comment on above: Order Comment: COLLE CTOR TO SPECIFY Result Comment: DUPL ICATE ORDER Performed By: #### L 400.0001 ####[facility] [address] [place], [address] RBC Normal 0-5 [facility] Comment on above: Order Comment: COLLE CTOR TO SPECIFY Result Comment: DUPL ICATE ORDER Performed By: #### L 400.0001 ####[facility] [address] [place], [address] SP.GR. DIPSTX Normal 1.002-1.030 [facility] Comment on above: Order Comment: COLLE CTOR TO SPECIFY Result Comment: DUPL ICATE ORDER Performed By: #### L 400.0001 ####[facility] [address] [place], [address] UR Preservative Normal [facility] Comment on above: Order Comment: COLLE CTOR TO SPECIFY Result Comment: DUPL ICATE ORDER Performed By: #### L 400.0001 ####[facility] [address] [place], [address] UROBILI Normal Normal [facility] Comment on above: Order Comment: COLLE CTOR TO SPECIFY Result Comment: DUPL ICATE ORDER Performed By: #### L 400.0001 ####[facility] [address] [place], [address] WBC Normal 0-5 [facility] Comment on above: Order Comment: COLLE CTOR TO SPECIFY Result Comment: DUPL ICATE ORDER Performed By: #### L 400.0001 ####[facility] [address] [place], [address] Venous Blood Gason 5 Blood Gas Type STEFANI Normal [facility] Comment on above: Performed By: #### L 9000.0810 ####[facility] [address] [place], [address] CO2 [Moles/Vol] 27 mmol/L Normal 23-33 [facility] Comment on above: Performed By: #### L 9000.0810 ####[facility] [address] [place], [address] FI02 100.0 Normal [facility] Comment on above: Performed By: #### L 9000.0810 ####[facility] [address] [place], [address] HCO3 (Bld) [Moles/Vol] 25 mmol/L Normal 22-26 [facility] Comment on above: Performed By: #### L 9000.0810 ####[facility] [address] [place], [address] O2 Delivery Dev Adult Vent Normal [facility] Comment on above: Performed By: #### L 900.0810 ####[facility] [address] [place], [address] PEEP 5 Normal [facility] Comment on above: Performed By: #### L 900.0810 ####[facility] [address] [place], [address] Read Back By Yes [facility] Comment on above: Performed By: #### L 9000.0810 ####[facility] [address] [place], [address] Results To brown [facility] Comment on above: Performed By: #### L 9000.0810 ####[facility] [address] [place], [address] RR 14 Normal [facility] Comment on above: Performed By: #### L 9000.0810 ####[facility] [address] [place], [address] SITE Not entered [facility] Comment on above: Performed By: #### L 900.0810 ####[facility] [address] [place], [address] Time Given 08:23:53 [facility] Comment on above: Performed By: #### L 9000.0810 ####[facility] [address] [place], [address] VBG BE -4 mmol/L Low -1.0-3.5 [facility] Comment on above: Performed By: #### L 9000.0810 ####[facility] [address] [place], [address] VBG pCO2 66.7 mmHg High 41-51 [facility] Comment on above: Performed By: #### L 900.0810 ####[facility] [address] [place], [address] VBG pH 7.18 Invalid Interpretation Code 7.32-7.42 [facility] Comment on above: Performed By: #### L 900.0810 ####[facility] [address] [place], [address] VBG PO2 30 mmHg Normal 25-40 [facility] Comment on above: Performed By: #### L 900.0810 ####[facility] [address] [place], [address] VBG SO2 42 Low 50-70 [facility] Comment on above: Performed By: #### L 900.0810 ####[facility] [address] [place], [address] Vt 450.0 mL Normal [facility] Comment on above: Performed By: #### L 9000.0810 ####[facility] [address] [place], [address] Blood Gas Type STEFANI Normal [facility] Comment on above: Performed By: #### L 9000.0810 ####[facility] [address] [place], [address] CO2 [Moles/Vol] 32 mmol/L Normal 23-33 [facility] Comment on above: Performed By: #### L 900.0810 ####[facility] [address] [place], [address] FI02 2.0 Normal [facility] Comment on above: Performed By: #### L 9000.0810 ####[facility] [address] [place], [address] HCO3 (Bld) [Moles/Vol] 31 mmol/L High 22-26 [facility] Comment on above: Performed By: #### L 9000.0810 ####[facility] [address] [place], [address] O2 Delivery Dev Cannula Normal [facility] Comment on above: Performed By: #### L 9000.0810 ####[facility] [address] [place], [address] SITE Not entered Normal [facility] Comment on above: Performed By: #### L 9000.0810 ####[facility] [address] [place], [address] VBG BE 5 mmol/L High -1.0-3.5 [facility] Comment on above: Performed By: #### L 9000.0810 ####[facility] [address] [place], [address] VBG pCO2 54.8 mmHg High 41-51 [facility] Comment on above: Performed By: #### L 9000.0810 ####[facility] [address] [place], [address] VBG pH 7.36 Normal 7.32-7.42 [facility] Comment on above: Performed By: #### L 9000.0810 ####[facility] [address] [place], [address] VBG PO2 26 mmHg Normal 25-40 [facility] Comment on above: Performed By: #### L 9000.0810 ####[facility] [address] [place], [address] VBG SO2 43 Low 50-70 [facility] Comment on above: Performed By: #### L 9000.0810 ####[facility] [address] [place], [address] Venous blood base excess maricruz surementOrdered By: Love Rushing on 06-25-2025 Base excess Calc (BldV) [Moles/Vol] 5 mmol/L High -1.0-3.5 [facility] Venous blood bicarbonate maricruz surementOrdered By: Love Rushing on 06-25-2025 HCO3 (Bld) [Moles/Vol] 31 mmol/L High 22-26 [facility] Venous blood oxygen saturati on measurementOrdered By: Love Rushing on 06-25-2025 Oxygen saturation in Blood 43 % Low 50-70 [facility] Venous blood pH measurementO rdered By: Love Rushing on 06-25-2025 pH (BldV) 7.36 [pH] 7.32-7.42 [facility] Venous blood partial pressur e of carbon dioxide measurementOrdered By: Love Rushing on 06-25-2025 CO2 (BldV) [Partial pressure] 54.8 mm[Hg] High 41-51 [facility] Venous blood partial pressur e of oxygen measurementOrdered By: Love Rushing on 06-25-2025 Oxygen (BldV) [Partial pressure] 26 mm[Hg] 25-40 [facility] White blood cell (WBC) count Ordered By: Love Rushing on 06-25-2025 WBC (Bld) [#/Vol] 20.7 10*3/uL High 4.4-11.0 [facility] AVASTIN (BEVACIZUMAB) 1.25MG INTRAVITREAL INJECTION OD (RIGHT EYE)on 05-31-2025 [facility] OCT MACULA CIRRUS OU (BOTH E YES)on 05-31-2025 [facility] Radiology Study observation (narrative) [facility] L3410.9992on 05-26-2025 [facility] Misc. COMMENT Normal . [facility] Comment on above: Order Comment: [id number] 4STOOL CULTURE Result Comment: Test Ordered: [id number] Stool CultureSalmonella/Shigella Screen Note: CB Final report Reference Range: .Result 1 Comment CB Reference Range: .No Salmonella or Shigella recovered.Campylobacter Culture Note: CB Final report Reference Range: .Result 1 Comment CB Reference Range: .No Campylobacter species isolated.E coli Shiga Toxin EIA Negative CB Reference Range: NegativePerformed at: [facility] [address] [id number] [place], [place] [id number] Director: Rhys Fontanez PhD, Phone: [phone] Performed By: #### M 100.6795, L3410.9992 ####[facility] [address] [place], [address] CDIFF (PCR)on 05-21-2025 CDIFF Normal [facility] Comment on above: Performed By: #### M [id number] ####[facility] [address] [place], [address] Clostridium Diff Toxin/Agon 05-21-2025 CDIFF (EIA) Normal [facility] Comment on above: Performed By: #### M 1006795, L3410.9992 ####[facility] [address] [place], [address] Clostridium difficile detect ion by polymerase chain reactionOrdered By: Donal Will on 05-21-2025 C. difficile DNA KATYA+probe Ql (Unsp spec) [facility] Stool Clostridium difficile detectionOrdered By: Donal Will on 05-21-2025 C. difficile Ql (Stl) [facility] Vitamin D 1,25-Dihydroxyon 0 05-21-2025 VIT D 1,25 DIHY 21.6 pg/mL Abnormal 24.8-81.5 [facility] Comment on above: Order Comment: Order Date: 04/27/25Order Info: [id number] - [id number] Result Comment: Perf ormed at: [facility] [address] [id number] Director: Jono Toscano MD, Phone: [phone] Performed By: #### L 501.5504, L580.4005, L571.1000, N2933.6013 ####[facility] [address] [place], [place], [address] Anion gap in Serum or Plasma Ordered By: Donal Will on 05-16-2025 Anion gap [Moles/Vol] 12 mmol/L 5-15 [facility] BUN/creatinine ratioOrdered By: Donal Will on 05-16-2025 Urea nitrogen/Creatinine [Mass ratio] 7.5 mg/mg Low 10-20 [facility] Bilirubin, totalOrdered By: Donal Will on 05-16-2025 Bilirubin [Mass/Vol] 0.74 mg/dL 0.00-1.30 [facility] Calculated very low density lipoprotein (VLDL) cholesterol measurementOrdered By: Onofre Claros on 05-16-2025 Calculated very low density lipoprotein (VLDL) cholesterol measurement 22 mg/dL 5-40 [facility] Carbon dioxide, total [Moles /volume] in Central venous bloodOrdered By: Donal Will on 05-16-2025 CO2 [Moles/Vol] 30.5 mmol/L 21.0-32.0 [facility] Cardiology Visit Reporton Cardiology Visit Report Normal [facility] Chloride assayOrdered By: Sabino Will on 05-16-2025 Chloride [Moles/Vol] 97 mmol/L Low 98-108 [facility] Comprehensive Metabolic Prof ilon 05-16-2025 Albumin [Mass/Vol] 3.8 g/dL Normal 3.4-4.8 [facility] Comment on above: Order Comment: Order Date: 04/27/25Order Info: 0786-1 - CMPOrder Info: 3016-3 - TSH Performed By: #### L 501.9520, L500.4050, L509.1000, L3300.0960 ####[facility] [address] [place], [place], [id number] Albumin/Globulin [Mass ratio] 1.5 {ratio} Normal 0.9-2.4 [facility] Comment on above: Order Comment: Order Date: 04/27/25Order Info: 0786-1 - CMPOrder Info: 3016-3 - TSH Performed By: #### L 501.9520, L500.4050, L509.1000, L3300.0960 ####[facility] [address] [place], [address] ALK PHOS 137 U/L High 35-104 [facility] Comment on above: Order Comment: Order Date: 04/27/25Order Info: 0786-1 - CMPOrder Info: 3016-3 - TSH Performed By: #### L 501.9520, L500.4050, L509.1000, L3300.0960 ####[facility] [address] [place], [address] ALT [Catalytic activity/Vol] 12 U/L Normal <=34 [facility] Comment on above: Order Comment: Order Date: 04/27/25Order Info: 0786- - CMPOrder Info: 3015-3 - TSH Performed By: #### L 501.9520, L500.4050, L509.1000, L3300.0960 ####[facility] [address] [place], [address] AST [Catalytic activity/Vol] 23 U/L Normal <=31 [facility] Comment on above: Order Comment: Order Date: 04/27/25Order Info: 0786- - CMPOrder Info: 3015-3 - TSH Performed By: #### L 501.9520, L500.4050, L509.1000, L3300.0960 ####[facility] [address] [place], [address] Bilirubin [Mass/Vol] 0.74 mg/dL Normal 0.00-1.30 [facility] Comment on above: Order Comment: Order Date: 04/27/25Order Info: 0786-1 - CMPOrder Info: 6-3 - TSH Performed By: #### L 501.9520, L500.4050, L509.1000, L3300.0960 ####[facility] [address] [place], [address] BUN/CRE 7.5 RATIO Low 10-20 [facility] Comment on above: Order Comment: Order Date: 04/27/25Order Info: 0786-1 - CMPOrder Info: 3016-3 - TSH Performed By: #### L 501.9520, L500.4050, L509.1000, L3300.0960 ####[facility] [address] [place], [address] Calcium [Mass/Vol] 9.3 mg/dL Normal 7.6-11.0 [facility] Comment on above: Order Comment: Order Date: 04/27/25Order Info: 0786-1 - CMPOrder Info: 3016-3 - TSH Performed By: #### L 501.9520, L500.4050, L509.1000, L3300.0960 ####[facility] [address] [place], [address] Chloride [Moles/Vol] 97 mmol/L Low 98-108 [facility] Comment on above: Order Comment: Order Date: 04/27/25Order Info: 0786-1 - CMPOrder Info: 3016-3 - TSH Performed By: #### L 501.9520, L500.4050, L509.1000, L3300.0960 ####[facility] [address] [place], [address] CO2 [Moles/Vol] 30.5 mmol/L Normal 21.0-32.0 [facility] Comment on above: Order Comment: Order Date: 04/27/25Order Info: 0786-1 - CMPOrder Info: 3016-3 - TSH Performed By: #### L 501.9520, L500.4050, L509.1000, L3300.0960 ####[facility] [address] [place], [address] Creatinine [Mass/Vol] 2.00 mg/dL High 0.70-1.20 [facility] Comment on above: Order Comment: Order Date: 04/27/25Order Info: 0786-1 - CMPOrder Info: 3016-3 - TSH Performed By: #### L 501.9520, L500.4050, L509.1000, L3300.0960 ####[facility] [address] [place], [address] GAP 12 Normal 5-15 [facility] Comment on above: Order Comment: Order Date: 04/27/25Order Info: 0786-1 - CMPOrder Info: 6-3 - TSH Performed By: #### L 501.9520, L500.4050, L509.1000, L3300.0960 ####[facility] [address] [place], [address] GFR/1.73 sq M.predicted among non-blacks MDRD (S/P/Bld) [Vol rate/Area] 26 mL/min/{1.73_m2} Low >60 [facility] Comment on above: Order Comment: Order Date: 04/27/25Order Info: 0786-1 - CMPOrder Info: 6-3 - TSH Result Comment: mL/m in/1.73m2 CKD-EPI Creatinine Equation (2020) Performed By: #### L 501.9520, L500.4050, L509.1000, L3300.0960 ####[facility] [address] [place], [address] Globulin (S) [Mass/Vol] 2.6 g/dL Normal 2.2-4.2 [facility] Comment on above: Order Comment: Order Date: 04/27/25Order Info: 0786-1 - CMPOrder Info: 3016-3 - TSH Performed By: #### L 501.9520, L500.4050, L509.1000, L3300.0960 ####[facility] [address] [place], [address] Glucose [Mass/Vol] 126 mg/dL High 70-99 [facility] Comment on above: Order Comment: Order Date: 04/27/25Order Info: 0786-1 - CMPOrder Info: 3016-3 - TSH Performed By: #### L 501.9520, L500.4050, L509.1000, L3300.0960 ####[facility] [address] [place], [address] Potassium [Moles/Vol] 4.5 mmol/L Normal 3.3-5.1 [facility] Comment on above: Order Comment: Order Date: 04/27/25Order Info: 0786-1 - CMPOrder Info: 3016-3 - TSH Performed By: #### L 501.9520, L500.4050, L509.1000, L3300.0960 ####[facility] [address] [place], [address] Sodium [Moles/Vol] 139 mmol/L Normal 133-145 [facility] Comment on above: Order Comment: Order Date: 04/27/25Order Info: 0786- - CMPOrder Info: 3015-3 - TSH Performed By: #### L 501.9520, L500.4050, L509.1000, L3300.0960 ####[facility] [address] [place], [address] T PROT 6.4 g/dL Normal 5.9-8.4 [facility] Comment on above: Order Comment: Order Date: 04/27/25Order Info: 0786-1 - CMPOrder Info: 301-3 - TSH Performed By: #### L 501.9520, L500.4050, L509.1000, L3300.0960 ####[facility] [address] [place], [address] Urea nitrogen [Mass/Vol] 15 mg/dL Normal 4-19 [facility] Comment on above: Order Comment: Order Date: 04/27/25Order Info: 0786-1 - CMPOrder Info: 3016-3 - TSH Performed By: #### L 501.9520, L500.4050, L509.1000, L3300.0960 ####[facility] [address] [place], [place], [address] Glomerular filtration rate ( GFR) estimation/1.73 sq m using serum, plasma, or whole bOrdered By: Donal Will on 05-16-2025 GFR/1.73 sq M.predicted among non-blacks MDRD (S/P/Bld) [Vol rate/Area] 26 mL/min/{1.73_m2} Low >60 [facility] Comment on above: mL/min/1.73m2 CKD-EP I Creatinine Equation (2020) LDL calc ser/plasOrdered By: Onofre Claros on 05-16-2025 Cholesterol in LDL [Mass/Vol] 33 mg/dL [facility] Comment on above: Nlrsrycqnh=597-179 m g/dL & Higher Rlpt=067 mg/dL or greater Laboratory - Chemistry and C hemistry - challengeOrdered By: Donal Will on 05-16-2025 AST [Catalytic activity/Vol] 23 U/L <32 [facility] Lipid Profileon 05-16-2025 CHOL:HDL 1.88 Normal [facility] Comment on above: Performed By: #### L 500.4100 ####[facility] [address] [place], [place], [address] Cholesterol [Mass/Vol] 117 mg/dL Normal <=200 [facility] Comment on above: Result Comment: Chol esterol level, Desirable <200 mg/dLBorderline high cholesterol 200-239 mg/dLHigh cholesterol >=240 mg/dLRecommendations of the NCEP Adult Treatment Panel for thefollowing risk-cutoff thresholds for the [place] Americanpopulation. Performed By: #### L 500.4100 ####[facility] [address] [place], [place], [address] Cholesterol in HDL [Mass/Vol] 62 mg/dL Normal [facility] Comment on above: Result Comment: Keisha onal Cholesterol Education Program (NCEP) guidelines:<40 mg/dL: Low HDL-cholesterol (major risk factor for CHD)>= 60 mg/dL: High HDL-cholesterol (negative risk factor forCHD)HDL-cholesterol is affected by a number of factors, e.g.smoking, exercise, hormones, sex and age. Performed By: #### L 500.4100 ####[facility] [address] [place], [address] Cholesterol in LDL [Mass/Vol] 33 mg/dL Normal [facility] Comment on above: Result Comment: Bord hcfztd=142-811 mg/dL Higher Opsp=401 mg/dL or greater Performed By: #### L 500.4100 ####[facility] [address] [place], [address] Cholesterol in VLDL [Mass/Vol] 22 mg/dL Normal 5-40 [facility] Comment on above: Performed By: #### L 500.4100 ####[facility] [address] [place], [address] Triglyceride [Mass/Vol] 108 mg/dL Normal [facility] Comment on above: Result Comment: The drugs N-Acetylcysteine and Metamizole may falselydepress this assay.Normal range: <150 mg/dLBorderline High: 150-199 mg/dLHigh: 200-499 mg/dLVery High: >500 mg/dL Performed By: #### L 500.4100 ####[facility] [address] [place], [address] PTHINon 05-16-2025 PTH 136 pg/mL High 11-61 [facility] Comment on above: Order Comment: Order Date: 04/27/25Order Info: 0565-1 - PTHIN Performed By: #### L 501.9520, L500.4050, L509.1000, L3300.0960 ####[facility] [address] [place], [address] Potassium measurement (mass/ volume)Ordered By: Donal Will on 05-16-2025 Potassium (Unsp spec) [Mass/Vol] 4.5 mmol/L 3.3-5.1 [facility] Screening total cholesterol/ high density lipoprotein (HDL) cholesterol ratioOrdered By: Onofre Claros on 05-16-2025 Cholesterol.total/Cho lesterol in HDL [Mass ratio] 1.88 {ratio} [facility] Serum creatinine measurement (mass/volume)Ordered By: Donal Will on 05-16-2025 Creatinine [Mass/Vol] 2.00 mg/dL High 0.70-1.20 [facility] Serum globulin measurementOr dered By: Donal Will on 05-16-2025 Globulin (S) [Mass/Vol] 2.6 g/dL 2.2-4.2 [facility] Serum glucose measurement (m ass/volume)Ordered By: Donal Will on 05-16-2025 Glucose [Mass/Vol] 126 mg/dL High 70-99 [facility] Serum or plasma alanine price otransferase (ALT) measurementOrdered By: Donal Will on 05-16-2025 ALT [Catalytic activity/Vol] 12 U/L <35 [facility] Serum or plasma albumin ras urement (mass/volume)Ordered By: Donal Will on 05-16-2025 Albumin [Mass/Vol] 3.8 g/dL 3.4-4.8 [facility] Serum or plasma albumin/glob ulin mass ratioOrdered By: Donal Will on 05-16-2025 Albumin/Globulin [Mass ratio] 1.5 {ratio} 0.9-2.4 [facility] Serum or plasma alkaline destini sphatase measurementOrdered By: Donal Will on 05-16-2025 ALP [Catalytic activity/Vol] 137 U/L High 35-104 [facility] Serum or plasma calcitriol m easurement (mass/volume)Ordered By: Donal Will on 05-16-2025 1,25-dihydroxyvitamin D3 [Mass/Vol] 21.6 pg/mL Low 24.8-81.5 [facility] Comment on above: Performed at: [address] [id number] Director: Jono Toscano MD, Phone: [phone] Serum or plasma calcium ras urement (mass/volume)Ordered By: Donal Will on 05-16-2025 Calcium [Mass/Vol] 9.3 mg/dL 7.6-11.0 [facility] Serum or plasma cholesterol in HDL measurement (mass/volume)Ordered By: Onofre Claros on 05-16-2025 Cholesterol in HDL [Mass/Vol] 62 mg/dL >40 [facility] Comment on above: National Cholesterol Education Program (NCEP) guidelines:<40 mg/dL: Low HDL-cholesterol (major risk factor for CHD)>= 60 mg/dL: High HDL-cholesterol (negative risk factor for CHD)HDL-cholesterol is affected by a number of factors, e.g. smoking, exercise, hormones, sex and age. Serum or plasma cholesterol measurement (mass/volume)Ordered By: Onofre Claros on 05-16-2025 Cholesterol [Mass/Vol] 117 mg/dL <201 [facility] Comment on above: Cholesterol level, D esirable <200 mg/dLBorderline high cholesterol 200-239 mg/dLHigh cholesterol >=240 mg/dLRecommendations of the NCEP Adult Treatment Panel for the following risk-cutoff thresholds for the [place] population. Serum or plasma urea nitroge n measurement (mass/volume)Ordered By: Donal Will on 05-16-2025 Urea nitrogen [Mass/Vol] 15 mg/dL 4-19 [facility] Sodium levelOrdered By: Alka Will on 05-16-2025 Sodium [Moles/Vol] 139 mmol/L 133-145 [facility] TSH DL <= 0.005 mIU/L QnOrde red By: Donal Will on 05-16-2025 TSH Qn 2.260 uIU/mL 0.300-4.200 [facility] Thyroid Stim Hormone (TSH)on 05-16-2025 TSH 2.260 uIU/mL Normal 0.300-4.200 [facility] Comment on above: Order Comment: Order Date: 04/27/25Order Info: [id number] - CMPOrder Info: 3016-3 - TSH Performed By: #### L 501.9520, L500.4050, L509.1000, L3300.0960 ####[facility] [address] [place], [place], [address] Total proteinOrdered By: Shadia Will on 05-16-2025 Protein [Mass/Vol] 6.4 g/dL 5.9-8.4 [facility] Triglycerides measurementOrd ered By: Onofre Claros on 05-16-2025 Triglyceride [Mass/Vol] 108 mg/dL <199 [facility] Comment on above: The drugs N-Acetylcy steine and Metamizole may falsely depress this assay. Normal range: <150 mg/dLBorderline High: 150-199 mg/dLHigh: 200-499 mg/dLVery High: >500 mg/dL Culture, Fungus 8482on 04-20 CUF Normal [facility] Comment on above: Performed By: #### M 600.2200, M600.2000 ####[facility] [address] [place], [address] Fungus Stain 8136on 04-20-20 25 FUNST Normal [facility] Comment on above: Performed By: #### M 600.2200, M600.2000 ####[facility] [address] [place], [address] Culture, Anaerobic Any Sourc cecil 04-06-2025 CUAN COLLECTED IN OR-RIG T GREAT TOE DISTAL PHALANX No anaerobic bacteria isolated. [facility] Comment on above: Performed By: #### M 100.2000, M100.4001, M100.3000 ####[facility] [address] [place], [address] Wound Cultureon 04-06-2025 WC Normal [facility] Comment on above: Performed By: #### M 100.2000, M100.4001, M100.3000 ####[facility] [address] [place], [address] Cardiology Visit Reporton Cardiology Visit Report Normal [facility] Basic Metabolic Profile (BMP )on 03-27-2025 BUN Normal 4-19 [facility] Comment on above: Result Comment: Canc elled via OM: Order cancelled - Patient discharged Performed By: #### L 100.0500, L500.2500 ####[facility] [address] [place], [address] BUN/CRE Normal 10-20 [facility] Comment on above: Result Comment: Canc elled via OM: Order cancelled - Patient discharged Performed By: #### L 100.0500, L500.2500 ####[facility] [address] [place], [address] Calcium Normal 7.6-11.0 [facility] Comment on above: Result Comment: Canc elled via OM: Order cancelled - Patient discharged Performed By: #### L 100.0500, L500.2500 ####[facility] [address] [place], [address] CL Normal 98-108 [facility] Comment on above: Result Comment: Canc elled via OM: Order cancelled - Patient discharged Performed By: #### L 100.0500, L500.2500 ####[facility] [address] [place], [address] CO2 Normal 21.0-32.0 [facility] Comment on above: Result Comment: Canc elled via OM: Order cancelled - Patient discharged Performed By: #### L 100.0500, L500.2500 ####[facility] [address] [place], [address] CREAT,SERUM Normal 0.70-1.20 [facility] Comment on above: Result Comment: Canc elled via OM: Order cancelled - Patient discharged Performed By: #### L 100.0500, L500.2500 ####[facility] [address] [place], [address] eGFR Normal >60 [facility] Comment on above: Result Comment: Canc elled via OM: Order cancelled - Patient discharged Performed By: #### L 100.0500, L500.2500 ####[facility] [address] [place], [address] GAP Normal 5-15 [facility] Comment on above: Result Comment: Canc elled via OM: Order cancelled - Patient discharged Performed By: #### L 100.0500, L500.2500 ####[facility] [address] [place], [address] GLU Normal 70-99 [facility] Comment on above: Result Comment: Canc elled via OM: Order cancelled - Patient discharged Performed By: #### L 100.0500, L500.2500 ####[facility] [address] [place], [address] Potassium Normal 3.3-5.1 [facility] Comment on above: Result Comment: Canc elled via OM: Order cancelled - Patient discharged Performed By: #### L 100.0500, L500.2500 ####[facility] [address] [place], [address] Basic Metabolic Profile (BMP) Normal 133-145 [facility] Comment on above: Result Comment: Canc elled via OM: Order cancelled - Patient discharged Performed By: #### L 100.0500, L500.2500 ####[facility] [address] [place], [address] CBC-Complete Blood Cnt No Di ffon 03-27-2025 HCT Normal 37-47 [facility] Comment on above: Result Comment: Canc elled via OM: Order cancelled - Patient discharged Performed By: #### L 100.0500, L500.2500 ####[facility] [address] [place], [address] HGB Normal 12.0-15.0 [facility] Comment on above: Result Comment: Canc elled via OM: Order cancelled - Patient discharged Performed By: #### L 100.0500, L500.2500 ####[facility] [address] [place], [address] MCH Normal 27.0-32.0 [facility] Comment on above: Result Comment: Canc elled via OM: Order cancelled - Patient discharged Performed By: #### L 100.0500, L500.2500 ####[facility] [address] [place], [address] MCHC Normal 32-36 [facility] Comment on above: Result Comment: Canc elled via OM: Order cancelled - Patient discharged Performed By: #### L 100.0500, L500.2500 ####[facility] [address] [place], [address] MCV Normal 81-99 [facility] Comment on above: Result Comment: Canc elled via OM: Order cancelled - Patient discharged Performed By: #### L 100.0500, L500.2500 ####[facility] [address] [place], [address] PLT Normal 150-450 [facility] Comment on above: Result Comment: Canc elled via OM: Order cancelled - Patient discharged Performed By: #### L 100.0500, L500.2500 ####[facility] [address] [place], [address] RBC Normal 4.2-5.4 [facility] Comment on above: Result Comment: Canc elled via OM: Order cancelled - Patient discharged Performed By: #### L 100.0500, L500.2500 ####[facility] [address] [place], [address] RDW CV Normal 11.6-14.6 [facility] Comment on above: Result Comment: Canc elled via OM: Order cancelled - Patient discharged Performed By: #### L 100.0500, L500.2500 ####[facility] [address] [place], [address] RDW SD Normal 35.1-43.9 [facility] Comment on above: Result Comment: Canc elled via OM: Order cancelled - Patient discharged Performed By: #### L 100.0500, L500.2500 ####[facility] [address] [place], [address] WBC Normal 4.4-11.0 [facility] Comment on above: Result Comment: Canc elled via OM: Order cancelled - Patient discharged Performed By: #### L 100.0500, L500.2500 ####[facility] [address] [place], [address] Basic Metabolic Profile (BMP )on 03-26-2025 BUN Normal 4-19 [facility] Comment on above: Result Comment: Canc elled via OM: Order cancelled - Patient discharged Performed By: #### L 100.0500, L500.2500 ####[facility] [address] [place], [address] BUN/CRE Normal 10-20 [facility] Comment on above: Result Comment: Canc elled via OM: Order cancelled - Patient discharged Performed By: #### L 100.0500, L500.2500 ####[facility] [address] [place], [address] Calcium Normal 7.6-11.0 [facility] Comment on above: Result Comment: Canc elled via OM: Order cancelled - Patient discharged Performed By: #### L 100.0500, L500.2500 ####[facility] [address] [place], [address] CL Normal 98-108 [facility] Comment on above: Result Comment: Canc elled via OM: Order cancelled - Patient discharged Performed By: #### L 100.0500, L500.2500 ####[facility] [address] [place], [address] CO2 Normal 21.0-32.0 [facility] Comment on above: Result Comment: Canc elled via OM: Order cancelled - Patient discharged Performed By: #### L 100.0500, L500.2500 ####[facility] [address] [place], [address] CREAT,SERUM Normal 0.70-1.20 [facility] Comment on above: Result Comment: Canc elled via OM: Order cancelled - Patient discharged Performed By: #### L 100.0500, L500.2500 ####[facility] [address] [place], [address] eGFR Normal >60 [facility] Comment on above: Result Comment: Canc elled via OM: Order cancelled - Patient discharged Performed By: #### L 100.0500, L500.2500 ####[facility] [address] [place], [address] GAP Normal 5-15 [facility] Comment on above: Result Comment: Canc elled via OM: Order cancelled - Patient discharged Performed By: #### L 100.0500, L500.2500 ####[facility] [address] [place], [address] GLU Normal 70-99 [facility] Comment on above: Result Comment: Canc elled via OM: Order cancelled - Patient discharged Performed By: #### L 100.0500, L500.2500 ####[facility] [address] [place], [address] Potassium Normal 3.3-5.1 [facility] Comment on above: Result Comment: Canc elled via OM: Order cancelled - Patient discharged Performed By: #### L 100.0500, L500.2500 ####[facility] [address] [place], [address] Basic Metabolic Profile (BMP) Normal 133-145 [facility] Comment on above: Result Comment: Canc elled via OM: Order cancelled - Patient discharged Performed By: #### L 100.0500, L500.2500 ####[facility] [address] [place], [address] CBC-Complete Blood Cnt No Di ffon 03-26-2025 HCT Normal 37-47 [facility] Comment on above: Result Comment: Canc elled via OM: Order cancelled - Patient discharged Performed By: #### L 100.0500, L500.2500 ####[facility] [address] [place], [address] HGB Normal 12.0-15.0 [facility] Comment on above: Result Comment: Canc elled via OM: Order cancelled - Patient discharged Performed By: #### L 100.0500, L500.2500 ####[facility] [address] [place], [address] MCH Normal 27.0-32.0 [facility] Comment on above: Result Comment: Canc elled via OM: Order cancelled - Patient discharged Performed By: #### L 100.0500, L500.2500 ####[facility] [address] [place], [address] MCHC Normal 32-36 [facility] Comment on above: Result Comment: Canc elled via OM: Order cancelled - Patient discharged Performed By: #### L 100.0500, L500.2500 ####[facility] [address] [place], [address] MCV Normal 81-99 [facility] Comment on above: Result Comment: Canc elled via OM: Order cancelled - Patient discharged Performed By: #### L 100.0500, L500.2500 ####[facility] [address] [place], [address] PLT Normal 150-450 [facility] Comment on above: Result Comment: Canc elled via OM: Order cancelled - Patient discharged Performed By: #### L 100.0500, L500.2500 ####[facility] [address] [place], [address] RBC Normal 4.2-5.4 [facility] Comment on above: Result Comment: Canc elled via OM: Order cancelled - Patient discharged Performed By: #### L 100.0500, L500.2500 ####[facility] [address] [place], [address] RDW CV Normal 11.6-14.6 [facility] Comment on above: Result Comment: Canc elled via OM: Order cancelled - Patient discharged Performed By: #### L 100.0500, L500.2500 ####[facility] [address] [place], [address] RDW SD Normal 35.1-43.9 [facility] Comment on above: Result Comment: Canc elled via OM: Order cancelled - Patient discharged Performed By: #### L 100.0500, L500.2500 ####[facility] [address] [place], [address] WBC Normal 4.4-11.0 [facility] Comment on above: Result Comment: Canc elled via OM: Order cancelled - Patient discharged Performed By: #### L 100.0500, L500.2500 ####[facility] [address] [place], [address] Basic Metabolic Profile (BMP )on 03-25-2025 BUN Normal 4-19 [facility] Comment on above: Result Comment: Canc elled via OM: Order cancelled - Patient discharged Performed By: #### L 500.2500, L100.0500 ####[facility] [address] [place], [address] BUN/CRE Normal 10-20 [facility] Comment on above: Result Comment: Canc elled via OM: Order cancelled - Patient discharged Performed By: #### L 500.2500, L100.0500 ####[facility] [address] [place], [address] Calcium Normal 7.6-11.0 [facility] Comment on above: Result Comment: Canc elled via OM: Order cancelled - Patient discharged Performed By: #### L 500.2500, L100.0500 ####[facility] [address] [place], [address] CL Normal 98-108 [facility] Comment on above: Result Comment: Canc elled via OM: Order cancelled - Patient discharged Performed By: #### L 500.2500, L100.0500 ####[facility] [address] [place], [address] CO2 Normal 21.0-32.0 [facility] Comment on above: Result Comment: Canc elled via OM: Order cancelled - Patient discharged Performed By: #### L 500.2500, L100.0500 ####[facility] [address] [place], [address] CREAT,SERUM Normal 0.70-1.20 [facility] Comment on above: Result Comment: Canc elled via OM: Order cancelled - Patient discharged Performed By: #### L 500.2500, L100.0500 ####[facility] [address] [place], [address] eGFR Normal >60 [facility] Comment on above: Result Comment: Canc elled via OM: Order cancelled - Patient discharged Performed By: #### L 500.2500, L100.0500 ####[facility] [address] [place], [address] GAP Normal 5-15 [facility] Comment on above: Result Comment: Canc elled via OM: Order cancelled - Patient discharged Performed By: #### L 500.2500, L100.0500 ####[facility] [address] [place], [address] GLU Normal 70-99 [facility] Comment on above: Result Comment: Canc elled via OM: Order cancelled - Patient discharged Performed By: #### L 500.2500, L100.0500 ####[facility] [address] [place], [address] Potassium Normal 3.3-5.1 [facility] Comment on above: Result Comment: Canc elled via OM: Order cancelled - Patient discharged Performed By: #### L 500.2500, L100.0500 ####[facility] [address] [place], [address] Basic Metabolic Profile (BMP) Normal 133-145 [facility] Comment on above: Result Comment: Canc elled via OM: Order cancelled - Patient discharged Performed By: #### L 500.2500, L100.0500 ####[facility] [address] [place], [address] CBC-Complete Blood Cnt No Di ffon 03-25-2025 HCT Normal 37-47 [facility] Comment on above: Result Comment: Canc elled via OM: Order cancelled - Patient discharged Performed By: #### L 500.2500, L100.0500 ####[facility] [address] [place], [address] HGB Normal 12.0-15.0 [facility] Comment on above: Result Comment: Canc elled via OM: Order cancelled - Patient discharged Performed By: #### L 500.2500, L100.0500 ####[facility] [address] [place], [address] MCH Normal 27.0-32.0 [facility] Comment on above: Result Comment: Canc elled via OM: Order cancelled - Patient discharged Performed By: #### L 500.2500, L100.0500 ####[facility] [address] [place], [address] MCHC Normal 32-36 [facility] Comment on above: Result Comment: Canc elled via OM: Order cancelled - Patient discharged Performed By: #### L 500.2500, L100.0500 ####[facility] [address] [place], [address] MCV Normal 81-99 [facility] Comment on above: Result Comment: Canc elled via OM: Order cancelled - Patient discharged Performed By: #### L 500.2500, L100.0500 ####[facility] [address] [place], [address] PLT Normal 150-450 [facility] Comment on above: Result Comment: Canc elled via OM: Order cancelled - Patient discharged Performed By: #### L 500.2500, L100.0500 ####[facility] [address] [place], [address] RBC Normal 4.2-5.4 [facility] Comment on above: Result Comment: Canc elled via OM: Order cancelled - Patient discharged Performed By: #### L 500.2500, L100.0500 ####[facility] [address] [place], [address] RDW CV Normal 11.6-14.6 [facility] Comment on above: Result Comment: Canc elled via OM: Order cancelled - Patient discharged Performed By: #### L 500.2500, L100.0500 ####[facility] [address] [place], [address] RDW SD Normal 35.1-43.9 [facility] Comment on above: Result Comment: Canc elled via OM: Order cancelled - Patient discharged Performed By: #### L 500.2500, L100.0500 ####[facility] [address] [place], [address] WBC Normal 4.4-11.0 [facility] Comment on above: Result Comment: Canc elled via OM: Order cancelled - Patient discharged Performed By: #### L 500.2500, L100.0500 ####[facility] [address] [place], [address] Basic Metabolic Profile (BMP )on 03-24-2025 BUN Normal 4-19 [facility] Comment on above: Result Comment: Canc elled via OM: Order cancelled - Patient discharged Performed By: #### L 100.0100, L500.2500 ####[facility] [address] [place], [address] BUN/CRE Normal 10-20 [facility] Comment on above: Result Comment: Canc elled via OM: Order cancelled - Patient discharged Performed By: #### L 100.0100, L500.2500 ####[facility] [address] [place], [address] Calcium Normal 7.6-11.0 [facility] Comment on above: Result Comment: Canc elled via OM: Order cancelled - Patient discharged Performed By: #### L 100.0100, L500.2500 ####[facility] [address] [place], [address] CL Normal 98-108 [facility] Comment on above: Result Comment: Canc elled via OM: Order cancelled - Patient discharged Performed By: #### L 100.0100, L500.2500 ####[facility] [address] [place], [address] CO2 Normal 21.0-32.0 [facility] Comment on above: Result Comment: Canc elled via OM: Order cancelled - Patient discharged Performed By: #### L 100.0100, L500.2500 ####[facility] [address] [place], [address] CREAT,SERUM Normal 0.70-1.20 [facility] Comment on above: Result Comment: Canc elled via OM: Order cancelled - Patient discharged Performed By: #### L 100.0100, L500.2500 ####[facility] [address] [place], [address] eGFR Normal >60 [facility] Comment on above: Result Comment: Canc elled via OM: Order cancelled - Patient discharged Performed By: #### L 100.0100, L500.2500 ####[facility] [address] [place], [address] GAP Normal 5-15 [facility] Comment on above: Result Comment: Canc elled via OM: Order cancelled - Patient discharged Performed By: #### L 100.0100, L500.2500 ####[facility] [address] [place], [address] GLU Normal 70-99 [facility] Comment on above: Result Comment: Canc elled via OM: Order cancelled - Patient discharged Performed By: #### L 100.0100, L500.2500 ####[facility] [address] [place], [address] Potassium Normal 3.3-5.1 [facility] Comment on above: Result Comment: Canc elled via OM: Order cancelled - Patient discharged Performed By: #### L 100.0100, L500.2500 ####[facility] [address] [place], [address] Basic Metabolic Profile (BMP) Normal 133-145 [facility] Comment on above: Result Comment: Canc elled via OM: Order cancelled - Patient discharged Performed By: #### L 100.0100, L500.2500 ####[facility] [address] [place], [address] CBC W/Diff, Automatedon 05-1 0-2024 Absolute Neut Normal 2.0-7.7 [facility] Comment on above: Result Comment: Canc elled via OM: Order cancelled - Patient discharged Performed By: #### L 100.0100, L500.2500 ####[facility] [address] [place], [address] HCT Normal 37-47 [facility] [facility] Comment on above: Result Comment: Canc elled via OM: Order cancelled - Patient discharged Performed By: #### L 100.0100, L500.2500 ####[facility] [address] [place], [address] HGB Normal 12.0-15.0 [facility] Comment on above: Result Comment: Canc elled via OM: Order cancelled - Patient discharged Performed By: #### L 100.0100, L500.2500 ####[facility] [address] [place], [address] MCH Normal 27.0-32.0 [facility] Comment on above: Result Comment: Canc elled via OM: Order cancelled - Patient discharged Performed By: #### L 100.0100, L500.2500 ####[facility] [address] [place], [address] MCHC Normal 32-36 [facility] Comment on above: Result Comment: Canc elled via OM: Order cancelled - Patient discharged Performed By: #### L 100.0100, L500.2500 ####[facility] [address] [place], [address] MCV Normal 81-99 [facility] Comment on above: Result Comment: Canc elled via OM: Order cancelled - Patient discharged Performed By: #### L 100.0100, L500.2500 ####[facility] [address] [place], [address] NEUT% Normal 47-70 [facility] Comment on above: Result Comment: Canc elled via OM: Order cancelled - Patient discharged Performed By: #### L 100.0100, L500.2500 ####[facility] [address] [place], [address] PLT Normal 150-450 [facility] Comment on above: Result Comment: Canc elled via OM: Order cancelled - Patient discharged Performed By: #### L 100.0100, L500.2500 ####[facility] [address] [place], [address] RBC Normal 4.2-5.4 [facility] Comment on above: Result Comment: Canc elled via OM: Order cancelled - Patient discharged Performed By: #### L 100.0100, L500.2500 ####[facility] [address] [place], [address] RDW CV Normal 11.6-14.6 [facility] Comment on above: Result Comment: Canc elled via OM: Order cancelled - Patient discharged Performed By: #### L 100.0100, L500.2500 ####[facility] [address] [place], [address] RDW SD Normal 35.1-43.9 [facility] Comment on above: Result Comment: Canc elled via OM: Order cancelled - Patient discharged Performed By: #### L 100.0100, L500.2500 ####[facility] [address] [place], [address] WBC Normal 4.4-11.0 [facility] Comment on above: Result Comment: Canc elled via OM: Order cancelled - Patient discharged Performed By: #### L 100.0100, L500.2500 ####[facility] [address] [place], [address] Wound Cultureon 03-24-2025 WC Normal [facility] Comment on above: Performed By: #### M 100.2000, M100.4001, M100.3000 ####[facility] [address] [place], [address] Anion gap in Serum or Plasma Ordered By: Aparna Mabry on 03-23-2025 Anion gap [Moles/Vol] 12 mmol/L 5-15 [facility] BUN/creatinine ratioOrdered By: Aparna Mabry on 03-23-2025 Urea nitrogen/Creatinine [Mass ratio] 10.1 mg/mg 10-20 [facility] Basic Metabolic Profile (BMP )on 03-23-2025 BUN/CRE 10.1 RATIO Normal - [facility] Comment on above: Performed By: #### L 100.0500, L500.2500 ####[facility] [address] [place], [address] Calcium [Mass/Vol] 8.0 mg/dL Normal 7.6-11.0 [facility] Comment on above: Performed By: #### L 100.0500, L500.2500 ####[facility] [address] [place], [address] Chloride [Moles/Vol] 102 mmol/L Normal 98-108 [facility] Comment on above: Performed By: #### L 100.0500, L500.2500 ####[facility] [address] [place], [address] CO2 [Moles/Vol] 21.2 mmol/L Normal 21.0-32.0 [facility] Comment on above: Performed By: #### L 100.0500, L500.2500 ####[facility] [address] [place], [address] Creatinine [Mass/Vol] 4.76 mg/dL High 0.70-1.20 [facility] Comment on above: Performed By: #### L 100.0500, L500.2500 ####[facility] [address] [place], [address] ECRCL 12.14 ml/min Low 50-250 [facility] Comment on above: Performed By: #### L 100.0500, L500.2500 ####[facility] [address] [place], [address] GAP 12 Normal 5-15 [facility] Comment on above: Performed By: #### L 100.0500, L500.2500 ####[facility] [address] [place], [address] GFR/1.73 sq M.predicted among non-blacks MDRD (S/P/Bld) [Vol rate/Area] 9 mL/min/{1.73_m2} Low >60 [facility] Comment on above: Result Comment: mL/m in/1.73m2 CKD-EPI Creatinine Equation (2020) Performed By: #### L 100.0500, L500.2500 ####[facility] [address] [place], [address] Glucose [Mass/Vol] 130 mg/dL High 70-99 [facility] Comment on above: Performed By: #### L 100.0500, L500.2500 ####[facility] [address] [place], [address] Potassium [Moles/Vol] 4.0 mmol/L Normal 3.3-5.1 [facility] Comment on above: Performed By: #### L 100.0500, L500.2500 ####[facility] [address] [place], [address] Sodium [Moles/Vol] 135 mmol/L Normal 133-145 [facility] Comment on above: Performed By: #### L 100.0500, L500.2500 ####[facility] [address] [place], [address] Urea nitrogen [Mass/Vol] 48 mg/dL High 4-19 [facility] Comment on above: Performed By: #### L 100.0500, L500.2500 ####[facility] [address] [place], [address] Bedside Glucoseon 05-09-2025 FINGERSTICK GLU 86 mg/dL Normal 74-106 [facility] Comment on above: Result Comment: RONNIE GEMENT OF PATIENT CARE PER NURSING PROTOCOL Performed By: #### L 501.080 ####[facility] [address] [place], [address] FINGERSTICK GLU 119 mg/dL High 74-106 [facility] Comment on above: Result Comment: RONNIE GEMENT OF PATIENT CARE PER NURSING PROTOCOL Performed By: #### L 501.080 ####[facility] [address] [place], [address] CBC-Complete Blood Cnt No Di ffon 03-23-2025 Erythrocyte distribution width (RBC) [Ratio] 17.2 % High 11.6-14.6 [facility] Comment on above: Performed By: #### L 100.0500, L500.2500 ####[facility] [address] [place], [address] Hematocrit (Bld) [Volume fraction] 34.2 % Low 37-47 [facility] Comment on above: Performed By: #### L 100.0500, L500.2500 ####[facility] [address] [place], [address] Hemoglobin (Bld) [Mass/Vol] 9.8 g/dL Low 12.0-15.0 [facility] Comment on above: Performed By: #### L 100.0500, L500.2500 ####[facility] [address] [place], [address] MCH (RBC) [Entitic mass] 26.0 pg Low 27.0-32.0 [facility] Comment on above: Performed By: #### L 100.0500, L500.2500 ####[facility] [address] [place], [address] MCHC (RBC) [Mass/Vol] 28.7 g/dL Low 32-36 [facility] Comment on above: Performed By: #### L 100.0500, L500.2500 ####[facility] [address] [place], [address] MCV (RBC) [Entitic vol] 90.7 fL Normal 81-99 [facility] Comment on above: Performed By: #### L 100.0500, L500.2500 ####[facility] [address] [place], [address] Platelet mean volume (Bld) [Entitic vol] 10.2 fL Normal 6.2-12.0 [facility] Comment on above: Performed By: #### L 100.0500, L500.2500 ####[facility] [address] [place], [address] Platelets (Bld) [#/Vol] 182 10*3/uL Normal 150-450 [facility] Comment on above: Performed By: #### L 100.0500, L500.2500 ####[facility] [address] [place], [address] RBC (Bld) [#/Vol] 3.77 10*6/uL Low 4.2-5.4 [facility] Comment on above: Performed By: #### L 100.0500, L500.2500 ####[facility] [address] [place], [address] RDW SD 57.6 fl High 35.1-43.9 [facility] Comment on above: Performed By: #### L 100.0500, L500.2500 ####[facility] [address] [place], [address] WBC (Bld) [#/Vol] 7.5 10*3/uL Normal 4.4-11.0 [facility] Comment on above: Performed By: #### L 100.0500, L500.2500 ####[facility] [address] [place], [place], [address] Carbon dioxide, total [Moles /volume] in Central venous bloodOrdered By: Aparna Mabry on 03-23-2025 CO2 [Moles/Vol] 21.2 mmol/L 21.0-32.0 [facility] Chloride assayOrdered By: Tasneem Mabry on 03-23-2025 Chloride [Moles/Vol] 102 mmol/L 98-108 [facility] Culture, Anaerobic Any Sourc cecil 03-23-2025 CUAN COLLECTED IN OR-POST LAVAGE CX SWAB RIGHTGREAT TOE No anaerobic bacteria isolated. Normal [facility] Comment on above: Performed By: #### M 100.2000, M100.4001, M100.3000 ####[facility] [address] [place], [address] Erythrocyte distribution wid th ratioOrdered By: Aparna Mabry on 03-23-2025 Erythrocyte distribution width (RBC) [Ratio] 17.2 % High 11.6-14.6 [facility] Erythrocyte distribution wid th standard deviationOrdered By: Aparna Mabry on 03-23-2025 Erythrocyte distribution width (RBC) [Ratio] 57.6 fl High 35.1-43.9 [facility] Glomerular filtration rate ( GFR) estimation/1.73 sq m using serum, plasma, or whole bOrdered By: Aparna Mabry on 03-23-2025 GFR/1.73 sq M.predicted among non-blacks MDRD (S/P/Bld) [Vol rate/Area] 9 mL/min/{1.73_m2} Low >60 [facility] Comment on above: mL/min/1.73m2 CKD-EP I Creatinine Equation (2020) [facility] deOrdered By: Fitz Ryan on 03-23-2025 Glucose [Mass/Vol] 86 mg/dL 74-106 [facility] Comment on above: MANAGEMENT OF PATIEN T CARE PER NURSING PROTOCOL Hematocrit Auto (Bld) [Volum e fraction]Ordered By: Aparna Mabry on 03-23-2025 Hematocrit (Bld) [Volume fraction] 34.2 % Low 37-47 [facility] Hemoglobin measurementOrdere d By: Aparna Mabry on 03-23-2025 Hemoglobin (Bld) [Mass/Vol] 9.8 g/dL Low 12.0-15.0 [facility] MCV (mean corpuscular volume ) determinationOrdered By: Aparna Mabry on 03-23-2025 MCV (RBC) [Entitic vol] 90.7 fL 81-99 [facility] Mean corpuscular hemoglobin (MCH) determinationOrdered By: Aparna Mabry on 03-23-2025 MCH (RBC) [Entitic mass] 26.0 pg Low 27.0-32.0 [facility] Mean corpuscular hemoglobin concentration (MCHC) determinationOrdered By: Aparna Mabry on 03-23-2025 MCHC (RBC) [Mass/Vol] 28.7 g/dL Low 32-36 [facility] Mean platelet volume determi nationOrdered By: Aparna Mabry on 03-23-2025 Platelet mean volume (Bld) [Entitic vol] 10.2 fL 6.2-12.0 [facility] Platelet countOrdered By: Tasneem Mabry on 03-23-2025 Platelets (Bld) [#/Vol] 182 10*3/uL 150-450 [facility] Potassium measurement (mass/ volume)Ordered By: Aparna Mabry on 03-23-2025 Potassium (Unsp spec) [Mass/Vol] 4.0 mmol/L 3.3-5.1 [facility] RBC Auto (Bld) [#/Vol]Ordere d By: Aparna Mabry on 03-23-2025 RBC (Bld) [#/Vol] 3.77 10*6/uL Low 4.2-5.4 [facility] Serum creatinine measurement (mass/volume)Ordered By: Aparna Mabry on 03-23-2025 Creatinine [Mass/Vol] 4.76 mg/dL High 0.70-1.20 [facility] Serum glucose measurement (m ass/volume)Ordered By: Aparna Mabry on 03-23-2025 Glucose [Mass/Vol] 130 mg/dL High 70-99 [facility] Serum or plasma calcium ras urement (mass/volume)Ordered By: Aparna Mabry on 03-23-2025 Calcium [Mass/Vol] 8.0 mg/dL 7.6-11.0 [facility] Serum or plasma urea nitroge n measurement (mass/volume)Ordered By: Aparna Mabry on 03-23-2025 Urea nitrogen [Mass/Vol] 48 mg/dL High 4-19 [facility] Sodium levelOrdered By: Joe Mabry on 03-23-2025 Sodium [Moles/Vol] 135 mmol/L 133-145 [facility] White blood cell (WBC) count Ordered By: Aparna Mabry on 03-23-2025 WBC (Bld) [#/Vol] 7.5 10*3/uL 4.4-11.0 [facility] Basic Metabolic Profile (BMP )on 03-22-2025 BUN/CRE 9.7 RATIO Low 10-20 [facility] Comment on above: Performed By: #### L 500.2500, L100.0500 ####[facility] [address] [place], [address] Calcium [Mass/Vol] 8.1 mg/dL Normal 7.6-11.0 [facility] Comment on above: Performed By: #### L 500.2500, L100.0500 ####[facility] [address] [place], [address] Chloride [Moles/Vol] 102 mmol/L Normal 98-108 [facility] Comment on above: Performed By: #### L 500.2500, L100.0500 ####[facility] [address] [place], [address] CO2 [Moles/Vol] 22.9 mmol/L Normal 21.0-32.0 [facility] Comment on above: Performed By: #### L 500.2500, L100.0500 ####[facility] [address] [place], [address] Creatinine [Mass/Vol] 4.13 mg/dL High 0.70-1.20 [facility] Comment on above: Performed By: #### L 500.2500, L100.0500 ####[facility] [address] [place], [address] ECRCL 14.44 ml/min Low 50-250 [facility] Comment on above: Performed By: #### L 500.2500, L100.0500 ####[facility] [address] [place], [address] GAP 11 Normal 5-15 [facility] Comment on above: Performed By: #### L 500.2500, L100.0500 ####[facility] [address] [place], [address] GFR/1.73 sq M.predicted among non-blacks MDRD (S/P/Bld) [Vol rate/Area] 11 mL/min/{1.73_m2} Low >60 [facility] Comment on above: Result Comment: mL/m in/1.73m2 CKD-EPI Creatinine Equation (2020) Performed By: #### L 500.2500, L100.0500 ####[facility] [address] [place], [address] Glucose [Mass/Vol] 87 mg/dL Normal 70-99 [facility] Comment on above: Performed By: #### L 500.2500, L100.0500 ####[facility] [address] [place], [address] Potassium [Moles/Vol] 4.2 mmol/L Normal 3.3-5.1 [facility] Comment on above: Performed By: #### L 500.2500, L100.0500 ####[facility] [address] [place], [address] Sodium [Moles/Vol] 136 mmol/L Normal 133-145 [facility] Comment on above: Performed By: #### L 500.2500, L100.0500 ####[facility] [address] [place], [address] Urea nitrogen [Mass/Vol] 40 mg/dL High 4-19 [facility] Comment on above: Performed By: #### L 500.2500, L100.0500 ####[facility] [address] [place], [address] Bedside Glucoseon 03-22-2025 FINGERSTICK GLU 182 mg/dL High 74-106 [facility] Comment on above: Result Comment: RONNIE GEMENT OF PATIENT CARE PER NURSING PROTOCOL Performed By: #### L 501.080 ####[facility] [address] [place], [address] FINGERSTICK GLU 136 mg/dL High 74-106 [facility] Comment on above: Result Comment: RONNIE GEMENT OF PATIENT CARE PER NURSING PROTOCOL Performed By: #### L 501.080 ####[facility] [address] [place], [address] FINGERSTICK GLU 137 mg/dL High 74-106 [facility] Comment on above: Result Comment: RONNIE GEMENT OF PATIENT CARE PER NURSING PROTOCOL Performed By: #### L 501.080 ####[facility] [address] [place], [address] FINGERSTICK GLU 96 mg/dL Normal 74-106 [facility] Comment on above: Result Comment: RONNIE GEMENT OF PATIENT CARE PER NURSING PROTOCOL Performed By: #### L 501.080 ####[facility] [address] [place], [address] FINGERSTICK GLU 105 mg/dL Normal 74-106 [facility] Comment on above: Result Comment: RONNIE GEMENT OF PATIENT CARE PER NURSING PROTOCOL Performed By: #### L 501.080 ####[facility] [address] [place], [address] CBC-Complete Blood Cnt No Di ffon 03-22-2025 Erythrocyte distribution width (RBC) [Ratio] 17.1 % High 11.6-14.6 [facility] Comment on above: Performed By: #### L 500.2500, L100.0500 ####[facility] [address] [place], [address] Hematocrit (Bld) [Volume fraction] 36.4 % Low 37-47 [facility] Comment on above: Performed By: #### L 500.2500, L100.0500 ####[facility] [address] [place], [address] Hemoglobin (Bld) [Mass/Vol] 10.3 g/dL Low 12.0-15.0 [facility] Comment on above: Performed By: #### L 500.2500, L100.0500 ####[facility] [address] [place], [address] MCH (RBC) [Entitic mass] 25.5 pg Low 27.0-32.0 [facility] Comment on above: Performed By: #### L 500.2500, L100.0500 ####[facility] [address] [place], [address] MCHC (RBC) [Mass/Vol] 28.3 g/dL Low 32-36 [facility] Comment on above: Performed By: #### L 500.2500, L100.0500 ####[facility] [address] [place], [address] MCV (RBC) [Entitic vol] 90.1 fL Normal 81-99 [facility] Comment on above: Performed By: #### L 500.2500, L100.0500 ####[facility] [address] [place], [address] Platelet mean volume (Bld) [Entitic vol] 9.6 fL Normal 6.2-12.0 [facility] Comment on above: Performed By: #### L 500.2500, L100.0500 ####[facility] [address] [place], [address] Platelets (Bld) [#/Vol] 169 10*3/uL Normal 150-450 [facility] Comment on above: Performed By: #### L 500.2500, L100.0500 ####[facility] [address] [place], [address] RBC (Bld) [#/Vol] 4.04 10*6/uL Low 4.2-5.4 [facility] Comment on above: Performed By: #### L 500.2500, L100.0500 ####[facility] [address] [place], [address] RDW SD 56.2 fl High 35.1-43.9 [facility] Comment on above: Performed By: #### L 500.2500, L100.0500 ####[facility] [address] [place], [address] WBC (Bld) [#/Vol] 8.4 10*3/uL Normal 4.4-11.0 [facility] Comment on above: Performed By: #### L 500.2500, L100.0500 ####[facility] [address] [place], [address] Basic Metabolic Profile (BMP )on 03-21-2025 BUN/CRE 11.0 RATIO Normal 10-20 [facility] Comment on above: Performed By: #### L 100.0500, L500.2500 ####[facility] [address] [place], [address] Calcium [Mass/Vol] 7.9 mg/dL Normal 7.6-11.0 [facility] Comment on above: Performed By: #### L 100.0500, L500.2500 ####[facility] [address] [place], [address] Chloride [Moles/Vol] 103 mmol/L Normal 98-108 [facility] Comment on above: Performed By: #### L 100.0500, L500.2500 ####[facility] [address] [place], [address] CO2 [Moles/Vol] 18.5 mmol/L Low 21.0-32.0 [facility] Comment on above: Performed By: #### L 100.0500, L500.2500 ####[facility] [address] [place], [address] Creatinine [Mass/Vol] 4.94 mg/dL High 0.70-1.20 [facility] Comment on above: Performed By: #### L 100.0500, L500.2500 ####[facility] [address] [place], [address] ECRCL 12.10 ml/min Low 50-250 [facility] Comment on above: Performed By: #### L 100.0500, L500.2500 ####[facility] [address] [place], [address] GAP 14 Normal 5-15 [facility] Comment on above: Performed By: #### L 100.0500, L500.2500 ####[facility] [address] [place], [address] GFR/1.73 sq M.predicted among non-blacks MDRD (S/P/Bld) [Vol rate/Area] 9 mL/min/{1.73_m2} Low >60 [facility] Comment on above: Result Comment: mL/m in/1.73m2 CKD-EPI Creatinine Equation (2020) Performed By: #### L 100.0500, L500.2500 ####[facility] [address] [place], [address] Glucose [Mass/Vol] 109 mg/dL High 70-99 [facility] Comment on above: Performed By: #### L 100.0500, L500.2500 ####[facility] [address] [place], [address] Potassium [Moles/Vol] 4.7 mmol/L Normal 3.3-5.1 [facility] Comment on above: Performed By: #### L 100.0500, L500.2500 ####[facility] [address] [place], [address] Sodium [Moles/Vol] 136 mmol/L Normal 133-145 [facility] Comment on above: Performed By: #### L 100.0500, L500.2500 ####[facility] [address] [place], [address] Urea nitrogen [Mass/Vol] 55 mg/dL High 4-19 [facility] Comment on above: Performed By: #### L 100.0500, L500.2500 ####[facility] [address] [place], [address] Bedside Glucoseon 03-21-2025 FINGERSTICK GLU 120 mg/dL High 74-106 [facility] Comment on above: Result Comment: RONNIE GEMENT OF PATIENT CARE PER NURSING PROTOCOL Performed By: #### L 501.080 ####[facility] [address] [place], [address] FINGERSTICK GLU 94 mg/dL Normal 74-106 [facility] Comment on above: Result Comment: RONNIE GEMENT OF PATIENT CARE PER NURSING PROTOCOL Performed By: #### L 501.080 ####[facility] [address] [place], [address] FINGERSTICK GLU 96 mg/dL Normal 74-106 [facility] Comment on above: Result Comment: RONNIE GEMENT OF PATIENT CARE PER NURSING PROTOCOL Performed By: #### L 501.080 ####[facility] [address] [place], [address] FINGERSTICK GLU 109 mg/dL High 74-106 [facility] Comment on above: Result Comment: RONNIE VELAZQUEZ OF PATIENT CARE PER NURSING PROTOCOL Performed By: #### L 501.080 ####[facility] [address] [place], [address] CBC-Complete Blood Cnt No Di ffon 03-21-2025 Erythrocyte distribution width (RBC) [Ratio] 17.1 % High 11.6-14.6 [facility] Comment on above: Performed By: #### L 100.0500, L500.2500 ####[facility] [address] [place], [address] Hematocrit (Bld) [Volume fraction] 35.8 % Low 37-47 [facility] Comment on above: Performed By: #### L 100.0500, L500.2500 ####[facility] [address] [place], [address] Hemoglobin (Bld) [Mass/Vol] 10.1 g/dL Low 12.0-15.0 [facility] Comment on above: Performed By: #### L 100.0500, L500.2500 ####[facility] [address] [place], [address] MCH (RBC) [Entitic mass] 25.6 pg Low 27.0-32.0 [facility] Comment on above: Performed By: #### L 100.0500, L500.2500 ####[facility] [id number] [place], [address] MCHC (RBC) [Mass/Vol] 28.2 g/dL Low 32-36 [facility] Comment on above: Performed By: #### L 100.0500, L500.2500 ####[facility] [id number] [place], [address] MCV (RBC) [Entitic vol] 90.9 fL Normal 81-99 [facility] Comment on above: Performed By: #### L 100.0500, L500.2500 ####[facility] [id number] [place], [address] Platelet mean volume (Bld) [Entitic vol] 10.1 fL Normal 6.2-12.0 [facility] Comment on above: Performed By: #### L 100.0500, L500.2500 ####[facility] [address] [place], [address] Platelets (Bld) [#/Vol] 165 10*3/uL Normal 150-450 [facility] Comment on above: Performed By: #### L 100.0500, L500.2500 ####[facility] [address] [place], [address] RBC (Bld) [#/Vol] 3.94 10*6/uL Low 4.2-5.4 [facility] Comment on above: Performed By: #### L 100.0500, L500.2500 ####[facility] [address] [place], [address] RDW SD 56.5 fl High 35.1-43.9 [facility] Comment on above: Performed By: #### L 100.0500, L500.2500 ####[facility] [address] [place], [address] WBC (Bld) [#/Vol] 8.3 10*3/uL Normal 4.4-11.0 [facility] Comment on above: Performed By: #### L 100.0500, L500.2500 ####[facility] [address] [place], [address] Absolute lymphocyte countOrd ered By: Fitz Ryan on 03-20-2025 Lymphocytes Auto (Unsp spec) [#/Vol] 0.65 10*3/uL Low 0.83-4.51 [facility] Absolute neutrophil countOrd ered By: Fitz Ryan on 03-20-2025 Neutrophils (Bld) [#/Vol] 8.5 10*3/uL High 2.0-7.7 [facility] Automated lymphocyte count a s percentage of total leukocytesOrdered By: Fitz Ryan on 03-20-2025 Lymphocytes/100 WBC Auto (Unsp spec) 6.4 % Low 19-41 [facility] Basic Metabolic Profile (BMP )on 03-20-2025 BUN/CRE 12.1 RATIO Normal 10-20 [facility] Comment on above: Performed By: #### L 500.2500, L100.0100 ####[facility] [address] [place], [address] Calcium [Mass/Vol] 8.3 mg/dL Normal 7.6-11.0 [facility] Comment on above: Performed By: #### L 500.2500, L100.0100 ####[facility] [address] [place], [address] Chloride [Moles/Vol] 102 mmol/L Normal 98-108 [facility] Comment on above: Performed By: #### L 500.2500, L100.0100 ####[facility] [address] [place], [address] CO2 [Moles/Vol] 20.3 mmol/L Low 21.0-32.0 [facility] Comment on above: Performed By: #### L 500.2500, L100.0100 ####[facility] [address] [place], [address] Creatinine [Mass/Vol] 4.02 mg/dL High 0.70-1.20 [facility] Comment on above: Performed By: #### L 500.2500, L100.0100 ####[facility] [address] [place], [address] ECRCL 14.87 ml/min Low 50-250 [facility] Comment on above: Performed By: #### L 500.2500, L100.0100 ####[facility] [address] [place], [address] GAP 15 Normal 5-15 [facility] Comment on above: Performed By: #### L 500.2500, L100.0100 ####[facility] [address] [place], [address] GFR/1.73 sq M.predicted among non-blacks MDRD (S/P/Bld) [Vol rate/Area] 11 mL/min/{1.73_m2} Low >60 [facility] Comment on above: Result Comment: mL/m in/1.73m2 CKD-EPI Creatinine Equation (2020) Performed By: #### L 500.2500, L100.0100 ####[facility] [address] [place], [address] Glucose [Mass/Vol] 79 mg/dL Normal 70-99 [facility] Comment on above: Performed By: #### L 500.2500, L100.0100 ####[facility] [address] [place], [address] Potassium [Moles/Vol] 4.6 mmol/L Normal 3.3-5.1 [facility] Comment on above: Performed By: #### L 500.2500, L100.0100 ####[facility] [address] [place], [address] Sodium [Moles/Vol] 137 mmol/L Normal 133-145 [facility] Comment on above: Performed By: #### L 500.2500, L100.0100 ####[facility] [address] [place], [address] Urea nitrogen [Mass/Vol] 49 mg/dL High 4-19 [facility] Comment on above: Performed By: #### L 500.2500, L100.0100 ####[facility] [address] [place], [address] Basophil percentageOrdered B y: Fitz Ryan on 03-20-2025 Basophils/100 WBC (Bld) 0.3 % 0-1 [facility] Bedside Glucoseon 03-20-2025 FINGERSTICK GLU 156 mg/dL High 74-106 [facility] Comment on above: Result Comment: RONNIE GEMENT OF PATIENT CARE PER NURSING PROTOCOL Performed By: #### L 501.080 ####[facility] [address] [place], [address] FINGERSTICK GLU 151 mg/dL High 74-106 [facility] Comment on above: Result Comment: RONNIE GEMENT OF PATIENT CARE PER NURSING PROTOCOL Performed By: #### L 501.080 ####[facility] [address] [place], [address] FINGERSTICK GLU 78 mg/dL Normal 74-106 [facility] Comment on above: Result Comment: RONNIE GEMENT OF PATIENT CARE PER NURSING PROTOCOL Performed By: #### L 501.080 ####[facility] [address] [place], [address] FINGERSTICK GLU 80 mg/dL Normal 74-106 [facility] Comment on above: Result Comment: RONNIE GEMENT OF PATIENT CARE PER NURSING PROTOCOL Performed By: #### L 501.080 ####[facility] [address] [place], [address] CBC W/Diff, Automatedon 05-0 Absolute Lymph 0.65 X10 3/uL Low 0.83-4.51 [facility] Comment on above: Performed By: #### L 500.2500, L100.0100 ####[facility] [address] [place], [address] Absolute Neut 8.5 X10 3/uL High 2.0-7.7 [facility] Comment on above: Performed By: #### L 500.2500, L100.0100 ####[facility] [address] [place], [address] Basophils/100 WBC (Bld) 0.3 % Normal 0-1 [facility] Comment on above: Performed By: #### L 500.2500, L100.0100 ####[facility] [address] [place], [address] Eosinophils/100 WBC (Bld) 0.3 % Normal 0-5 [facility] Comment on above: Performed By: #### L 500.2500, L100.0100 ####[facility] [address] [place], [address] Erythrocyte distribution width (RBC) [Ratio] 17.2 % High 11.6-14.6 [facility] Comment on above: Performed By: #### L 500.2500, L100.0100 ####[facility] [address] [place], [address] Hematocrit (Bld) [Volume fraction] 39.1 % Normal 37-47 [facility] Comment on above: Performed By: #### L 500.2500, L100.0100 ####[facility] [address] [place], [address] Hemoglobin (Bld) [Mass/Vol] 11.0 g/dL Low 12.0-15.0 [facility] Comment on above: Performed By: #### L 500.2500, L100.0100 ####[facility] [address] [place], [address] IG% 1.200 High 0.0-0.9 [facility] Comment on above: Result Comment: IG% - Immature Granulocytes (promyelocytes, myelocytes andmetamyelocytes) > 1% indicates that a LEFT SHIFT is Present. Performed By: #### L 500.2500, L100.0100 ####[facility] [address] [place], [address] Lymphocytes/100 WBC (Bld) 6.4 % Low 19-41 [facility] Comment on above: Performed By: #### L 500.2500, L100.0100 ####[facility] [address] [place], [address] MCH (RBC) [Entitic mass] 25.7 pg Low 27.0-32.0 [facility] Comment on above: Performed By: #### L 500.2500, L100.0100 ####[facility] [address] [place], [address] MCHC (RBC) [Mass/Vol] 28.1 g/dL Low 32-36 [facility] Comment on above: Performed By: #### L 500.2500, L100.0100 ####[facility] [address] [place], [address] MCV (RBC) [Entitic vol] 91.4 fL Normal 81-99 [facility] Comment on above: Performed By: #### L 500.2500, L100.0100 ####[facility] [address] [place], [address] Monocytes/100 WBC (Bld) 7.7 % Normal 0-10 [facility] Comment on above: Performed By: #### L 500.2500, L100.0100 ####[facility] [address] [place], [address] Neutrophils/100 WBC (Bld) 84.1 % High 47-70 [facility] Comment on above: Performed By: #### L 500.2500, L100.0100 ####[facility] [address] [place], [address] Nucleated RBC (Bld) [#/Vol] 0.8 10*3/uL Normal 0-5 [facility] Comment on above: Performed By: #### L 500.2500, L100.0100 ####[facility] [address] [place], [address] Platelet mean volume (Bld) [Entitic vol] 9.2 fL Normal 6.2-12.0 [facility] Comment on above: Performed By: #### L 500.2500, L100.0100 ####[facility] [address] [place], [address] Platelets (Bld) [#/Vol] 188 10*3/uL Normal 150-450 [facility] Comment on above: Performed By: #### L 500.2500, L100.0100 ####[facility] [address] [place], [address] RBC (Bld) [#/Vol] 4.28 10*6/uL Normal 4.2-5.4 [facility] Comment on above: Performed By: #### L 500.2500, L100.0100 ####[facility] [address] [place], [address] RDW SD 57.3 fl High 35.1-43.9 [facility] Comment on above: Performed By: #### L 500.2500, L100.0100 ####[facility] [address] [place], [address] WBC (Bld) [#/Vol] 10.1 10*3/uL Normal 4.4-11.0 [facility] Comment on above: Performed By: #### L 500.2500, L100.0100 ####[facility] [address] [place], [address] Consultation - Infectious Dx on 03-20-2025 Consultation - Infectious Dx Normal [facility] Eosinophil percentageOrdered By: Fitz Ryan on 03-20-2025 Eosinophils/100 WBC (Bld) 0.3 % 0-5 [facility] Gram Stainon 03-20-2025 GS COLLECTED IN OR-RIG T GREAT TOE DISTAL PHALANX Gram Stain Gram positive cocci Epithelial cells No White Blood Cells Normal [facility] Comment on above: Performed By: #### M 100.2000, M100.4001, M100.3000 ####[facility] [address] [place], [address] Immature granulocytes/100 WB C Auto (Bld)Ordered By: Fitz Ryan on 03-20-2025 Immature granulocytes/100 WBC (Bld) 1.200 % High 0.0-0.9 [facility] Comment on above: IG% - Immature Granu locytes (promyelocytes, myelocytes and metamyelocytes) > 1% indicates that a LEFT SHIFT is Present. Kidney Biopsyon 03-20-2025 Kidney Biopsy Normal [facility] L350.1810on 03-20-2025 Path [facility] SEE PATHOLOGY REPORT Normal [facility] Comment on above: Order Comment: RESUL TS FAXED TO DR. GUPTA 03/23/25 0984 Aashish Santillan. Result Comment: Spec imen sent to [facility] Pathology Department.Report available in EMR. Performed By: #### L 350.1810 ####[facility] [address] [place], [address] Monocyte percentageOrdered B y: Fitz Ryan on 03-20-2025 Monocytes/100 WBC (Bld) 7.7 % 0-10 [facility] Neutrophil percentageOrdered By: Fitz Ryan on 03-20-2025 Neutrophils/100 WBC (Bld) 84.1 % High 47-70 [facility] Nucleated red blood cell per centageOrdered By: Fitz Ryan on 03-20-2025 Nucleated RBC/100 WBC (Bld) [Ratio] 0.8 % 0-5 [facility] SURG PATH REQUESTon 03-20-20 Case Report Normal [facility] Comment on above: Result Comment: Surg ical Pathology Report Case: [id number] Authorizing Provider: Uriel Gupta MD Collected: 03/20/2025 12:00 PM Ordering Location[facility] Received: 03/20/2025 05:29 PM SINGER Pathologist: Autumn Sands MD Specimen: KIDNEY Performed By: #### S URGP #### [facility] (DEFAULT) [address] [place], [place] [address] Clinical History A 74-year-old female with history [...] 53.4 kg/m2 and weighs 123 kg. Normal [facility] Comment on above: Performed By: #### S URGP #### [facility] (DEFAULT) [address] [place] [address] Gross Description Normal [facility] Comment on above: Result Comment: Bill morales from [facility], [place], is a chickaloon kidney biopsy with two containers labeled with [...] Finn Performed By: #### S URGP #### [facility] (DEFAULT) [address] [place] [address] Microscopic Description Normal [facility] Comment on above: Result Comment: LIGH [...] their performance characteristics were determined, by the [facility] Clinical [facility], Department of Pathology. One [...] identified. Performed By: #### S URGP #### [facility] (DEFAULT) [address] [place] [address] Pathologic Diagnosis Normal [facility] Comment on above: Result Comment: A. L eft kidney, chickaloon, biopsy: Diffuse acute tubular necrosis (ATN) with [...] biopsy findings were discussed with Dr. Uriel Gupta on 03/21/2025. Lab Use Only: JobID [id number] at 1516 EDT Performed By: #### S URGP #### [facility] (DEFAULT) [address] [place] [address] Professional Interpretation Performed at: Normal [facility] Comment on above: Result Comment: [facility] For Immediate Release to Patient's MyChart? Yes [address] [place] [address] Performed By: #### S URGP #### [facility] ([facility]) [address] [place] [address] Wound Cultureon 03-20-2025 WC Normal [facility] Comment on above: Performed By: #### L 8200.1075, M100.2000, M100.3000 ####[facility] [address] [place], [place], [id number] ANCAon 03-19-2025 Atypical pANCA <1:20 Normal Neg:<1:20 [facility] Comment on above: Result Comment: The atypical pANCA pattern has been observed in asignificant percentage of patients with ulcerative colitis,primary sclerosing cholangitis and autoimmune hepatitis. Performed By: #### L 3100.5800, L3300.1200, L3100.5500, L3400.4200, L3100.5700 ####[facility] [address] [place], [address] Cytoplasmic Ab <1:20 Normal Neg:<1:20 [facility] Comment on above: Performed By: #### L 3100.5800, L3300.1200, L3100.5500, L3400.4200, L3100.5700 ####[facility] [address] [place], [place], [id number] Perinuclear Ab. <1:20 Normal Neg:<1:20 [facility] Comment on above: Result Comment: The presence of positive fluorescence exhibiting P-ANCA orC-ANCA patterns alone is not specific for the diagnosis ofWegener's Granulomatosis (WG) or microscopic polyangiitis.Decisions about treatment should not be based solely onANCA IFA results. The [employer] Consensusrecommends follow up testing of positive sera with both MS-3 and MPO-ANCA enzyme immunoassays. As many as 5% serumsamples are positive only by EIA. Ref. AM J Clin Vukinp2694;111:507-513. Performed By: #### L 3100.5800, L3300.1200, L3100.5500, L3400.4200, L3100.5700 ####[facility] [address] [place], [address] Anaerobic cultureOrdered By: Princess Coronado on 03-19-2025 Bacteria identified Anaer cx Nom (Unsp spec) No anaerobic bacteria isolated. [facility] Anti-Glomerular Basement Mem bon 03-19-2025 ANTI-GLOM BM Ab < 0.2 Normal 0.0-0.9 [facility] Comment on above: Result Comment: Perf ormed at: - [facility] [address] [id number] Director: Rhys Fontanez PhD, Phone: [phone] at: - [facility] [address] [id number] Director: Jono Toscano MD, Phone: [phone] Performed By: #### L 3100.5800, L3300.1200, L3100.5500, L3400.4200, L3100.5700 ####[facility] [address] [place], [place], [address] Arterial study reportOrdered By: Fitz Velazquez on 03-19-2025 Noninvasive arteriosclerosis study report [facility] [address] [place] [address] Ankle Brachial Index 03/16/25 1357 MR#: [id number] Acct: [id number] Name: MISAEL MEDINA Rep #:[id number] : 1950 74 From: Fitz Chinchilla Attending Dr: Dr. Fitz Ryan, DO Status: ADM IN Ordering Dr: Princess Coronado DPJamarcus Date: 03/16/25 Location: U Sex: F C [...] the left ankle normal atrest. Ordering Physician: Princess Coronado Referring Physician: Donal Will Performed By: Nabor Colorado RVT 03/19/25 1349 Date _ Fitz Velazquez MD CC: DPM Dr. Princess Coronado; Dr. Donal Will MD; Dr. Fitz Ryan, ~ Date Dictated: 03/16/25 1357 Date Transcribed: 03/19/25 1349 Wellness Manager: Signed [facility] Work Phone: Basic Metabolic Profile (BMP )on 03-19-2025 BUN/CRE 13.1 RATIO Normal 10-20 [facility] Comment on above: Performed By: #### L 501.9520, L500.2500 ####[facility] [address] [place], [address] Calcium [Mass/Vol] 7.9 mg/dL Normal 7.6-11.0 [facility] Comment on above: Performed By: #### L 501.9520, L500.2500 ####[facility] [address] [place], [address] Chloride [Moles/Vol] 103 mmol/L Normal 98-108 [facility] Comment on above: Performed By: #### L 501.9520, L500.2500 ####[facility] [address] [place], [address] CO2 [Moles/Vol] 17.4 mmol/L Low 21.0-32.0 [facility] Comment on above: Performed By: #### L 501.9520, L500.2500 ####[facility] [address] [place], [address] Creatinine [Mass/Vol] 4.52 mg/dL High 0.70-1.20 [facility] Comment on above: Performed By: #### L 501.9520, L500.2500 ####[facility] [address] [place], [address] ECRCL 13.19 ml/min Low 50-250 [facility] Comment on above: Performed By: #### L 501.9520, L500.2500 ####[facility] [address] [place], [address] GAP 14 Normal 5-15 [facility] Comment on above: Performed By: #### L 501.9520, L500.2500 ####[facility] [address] [place], [address] GFR/1.73 sq M.predicted among non-blacks MDRD (S/P/Bld) [Vol rate/Area] 10 mL/min/{1.73_m2} Low >60 [facility] Comment on above: Result Comment: mL/m in/1.73m2 CKD-EPI Creatinine Equation (2020) Performed By: #### L 501.9520, L500.2500 ####[facility] [address] [place], [address] Glucose [Mass/Vol] 92 mg/dL Normal 70-99 [facility] Comment on above: Performed By: #### L 501.9520, L500.2500 ####[facility] [address] [place], [address] Potassium [Moles/Vol] 5.4 mmol/L High 3.3-5.1 [facility] Comment on above: Result Comment: Hemo lysis present, Results??could be affected.?? Performed By: #### L 501.9520, L500.2500 ####[facility] [address] [place], [address] Sodium [Moles/Vol] 134 mmol/L Normal 133-145 [facility] Comment on above: Performed By: #### L 501.9520, L500.2500 ####[facility] [address] [place], [address] Urea nitrogen [Mass/Vol] 59 mg/dL High 4-19 [facility] Comment on above: Performed By: #### L 501.9520, L500.2500 ####[facility] [address] [place], [address] Bedside Glucoseon 03-19-2025 FINGERSTICK GLU 101 mg/dL Normal 74-106 [facility] Comment on above: Result Comment: RONNIE GEMENT OF PATIENT CARE PER NURSING PROTOCOL Performed By: #### L 501.080 ####[facility] [address] [place], [address] FINGERSTICK GLU 85 mg/dL Normal 74-106 [facility] Comment on above: Result Comment: RONNIE GEMENT OF PATIENT CARE PER NURSING PROTOCOL Performed By: #### L 501.080 ####[facility] [address] [place], [address] FINGERSTICK GLU 99 mg/dL Normal 74-106 [facility] Comment on above: Result Comment: RONNIE VELAZQUEZ OF PATIENT CARE PER NURSING PROTOCOL Performed By: #### L 501.080 ####[facility] [address] [place], [address] Blood manual differential co mment interpretation (narrative result)Ordered By: Bassam Casey on 03-19-2025 Manual differential comment Kenroy (Bld) [Interp] See comment [facility] Comment on above: 1+PolychromasiaModer ately Decreased Platelets CBC-Complete Blood Cnt No Di ffon 03-19-2025 Erythrocyte distribution width (RBC) [Ratio] 17.5 % High 11.6-14.6 [facility] Comment on above: Performed By: #### L 100.4500, L100.0500 ####[facility] [address] [place], [address] Hematocrit (Bld) [Volume fraction] 36.5 % Low 37-47 [facility] Comment on above: Performed By: #### L 100.4500, L100.0500 ####[facility] [address] [place], [address] Hemoglobin (Bld) [Mass/Vol] 10.4 g/dL Low 12.0-15.0 [facility] Comment on above: Performed By: #### L 100.4500, L100.0500 ####[facility] [address] [place], [address] MCH (RBC) [Entitic mass] 26.1 pg Low 27.0-32.0 [facility] Comment on above: Performed By: #### L 100.4500, L100.0500 ####[facility] [address] [place], [address] MCHC (RBC) [Mass/Vol] 28.5 g/dL Low 32-36 [facility] Comment on above: Performed By: #### L 100.4500, L100.0500 ####[facility] [address] [place], [address] MCV (RBC) [Entitic vol] 91.7 fL Normal 81-99 [facility] Comment on above: Performed By: #### L 100.4500, L100.0500 ####[facility] [address] [place], [address] Platelet mean volume (Bld) [Entitic vol] 10.7 fL Normal 6.2-12.0 [facility] Comment on above: Performed By: #### L 100.4500, L100.0500 ####[facility] [address] [place], [address] Platelets (Bld) [#/Vol] 82 10*3/uL Low 150-450 [facility] Comment on above: Performed By: #### L 100.4500, L100.0500 ####[facility] [address] [place], [address] RBC (Bld) [#/Vol] 3.98 10*6/uL Low 4.2-5.4 [facility] Comment on above: Performed By: #### L 100.4500, L100.0500 ####[facility] [address] [place], [address] RDW SD 58.4 fl High 35.1-43.9 [facility] Comment on above: Performed By: #### L 100.4500, L100.0500 ####[facility] [address] [place], [address] WBC (Bld) [#/Vol] 7.4 10*3/uL Normal 4.4-11.0 [facility] Comment on above: Performed By: #### L 100.4500, L100.0500 ####[facility] [address] [place], [address] Complement C3on 03-19-2025 COMP C3 131 mg/dL Normal 82-167 [facility] Comment on above: Performed By: #### L 3100.5800, L3300.1200, L3100.5500, L3400.4200, L3100.5700 ####[facility] [address] [place], [address] Complement C4on 03-19-2025 COMPLEMENT, C4 33 mg/dL Normal 12-38 [facility] Comment on above: Performed By: #### L 3100.5800, L3300.1200, L3100.5500, L3400.4200, L3100.5700 ####[facility] [address] [place], [address] Decalcification bone/plaqueo n 03-19-2025 Decalcification bone/plaque Normal [facility] Comment on above: Performed By: #### P DEC ####[facility] [address] [place], [address] Differential Commenton 03-19 SMEAR COMMENT Normal [facility] Comment on above: Result Comment: 1+Po lychromasiaModerately Decreased Platelets Performed By: #### L 100.4500, L100.0500 ####[facility] [address] [place], [address] Fungus cultureOrdered By: Octavio Coronado on 03-19-2025 Fungus identified Cx Nom (Unsp spec) [facility] Fungus stainOrdered By: Basilio Coronado on 03-19-2025 Fungus identified Fungus stain Nom (Unsp spec) [facility] Gram Stainon 03-19-2025 GS COLLECTED IN OR-POST LAVAGE CX SWAB RIGHTGREAT TOE Gram Stain Rare Gram positive cocci Normal [facility] Comment on above: Performed By: #### M 100.2000, M100.4001, M100.3000 ####[facility] [address] [place], [address] Gram stainOrdered By: Princess Coronado on 03-19-2025 Microscopic observation Gram stain Nom (Unsp spec) [facility] MR/POSTOP.ANEon 03-19-2025 MR/POSTOP.ANE Normal [facility] MR/ASQIUQXF6on 03-19-2025 MR/POSTOPAN2 Normal [facility] Operative Reporton Operative Report Normal [facility] Routine wound cultureOrdered By: Princess Coronado on 03-19-2025 Microbial culture, routine Staphylococcus haemolyticus Abnormal [facility] Microbial culture, routine Meth. resistant Staph. aureus Abnormal [facility] Microbial culture, routine Corynebacterium amycolatum Abnormal [facility] Microbial culture, routine Staphylococcus epidermidis Abnormal [facility] Microbial culture, routine Corynebacterium minutissimum Abnormal [facility] TSH DL <= 0.005 mIU/L QnOrde red By: Bassam Casey on 03-19-2025 TSH Qn 4.300 uIU/mL High 0.300-4.200 [facility] Thyroid Stim Hormone (TSH)on 03-19-2025 TSH 4.300 uIU/mL High 0.300-4.200 [facility] Comment on above: Performed By: #### L 501.9520, L500.2500 ####[facility] [address] [place], [place], [id number] Basic Metabolic Profile (BMP )on 03-18-2025 BUN/CRE 13.8 RATIO Normal 10-20 [facility] Comment on above: Performed By: #### L 500.2500 ####[facility] [address] [place], [place], [id number] Calcium [Mass/Vol] 7.8 mg/dL Normal 7.6-11.0 [facility] Comment on above: Performed By: #### L 500.2500 ####[facility] [address] [place], [address] Chloride [Moles/Vol] 106 mmol/L Normal 98-108 [facility] Comment on above: Performed By: #### L 500.2500 ####[facility] [address] [place], [address] CO2 [Moles/Vol] 17.9 mmol/L Low 21.0-32.0 [facility] Comment on above: Performed By: #### L 500.2500 ####[facility] [address] [place], [address] Creatinine [Mass/Vol] 4.09 mg/dL High 0.70-1.20 [facility] Comment on above: Performed By: #### L 500.2500 ####[facility] [address] [place], [address] ECRCL 14.29 ml/min Low 50-250 [facility] Comment on above: Performed By: #### L 500.2500 ####[facility] [address] [place], [address] GAP 11 Normal 5-15 [facility] Comment on above: Performed By: #### L 500.2500 ####[facility] [address] [place], [address] GFR/1.73 sq M.predicted among non-blacks MDRD (S/P/Bld) [Vol rate/Area] 11 mL/min/{1.73_m2} Low >60 [facility] Comment on above: Result Comment: mL/m in/1.73m2 CKD-EPI Creatinine Equation (2020) Performed By: #### L 500.2500 ####[facility] [address] [place], [address] Glucose [Mass/Vol] 139 mg/dL High 70-99 [facility] Comment on above: Performed By: #### L 500.2500 ####[facility] [address] [place], [address] Potassium [Moles/Vol] 4.7 mmol/L Normal 3.3-5.1 [facility] Comment on above: Performed By: #### L 500.2500 ####[facility] [address] [place], [address] Sodium [Moles/Vol] 135 mmol/L Normal 133-145 [facility] Comment on above: Performed By: #### L 500.2500 ####[facility] [address] [place], [address] Urea nitrogen [Mass/Vol] 57 mg/dL High 4-19 [facility] Comment on above: Performed By: #### L 500.2500 ####[facility] [address] [place], [address] Bedside Glucoseon 03-18-2025 FINGERSTICK GLU 130 mg/dL High 74-106 [facility] Comment on above: Result Comment: RONNIE GEMENT OF PATIENT CARE PER NURSING PROTOCOL Performed By: #### L 501.080 ####[facility] [address] [place], [address] FINGERSTICK GLU 136 mg/dL High 74-106 [facility] Comment on above: Result Comment: RONNIE GEMENT OF PATIENT CARE PER NURSING PROTOCOL Performed By: #### L 501.080 ####[facility] [address] [place], [address] FINGERSTICK GLU 117 mg/dL High 74-106 [facility] Comment on above: Result Comment: RONNIE GEMENT OF PATIENT CARE PER NURSING PROTOCOL Performed By: #### L 501.080 ####[facility] [address] [place], [address] CBC-Complete Blood Cnt No Di ffon 03-18-2025 Erythrocyte distribution width (RBC) [Ratio] 17.2 % High 11.6-14.6 [facility] Comment on above: Performed By: #### L 100.0500 ####[facility] [address] [place], [address] Hematocrit (Bld) [Volume fraction] 35.8 % Low 37-47 [facility] Comment on above: Performed By: #### L 100.0500 ####[facility] [address] [place], [address] Hemoglobin (Bld) [Mass/Vol] 10.7 g/dL Low 12.0-15.0 [facility] Comment on above: Performed By: #### L 100.0500 ####[facility] [address] [place], [address] MCH (RBC) [Entitic mass] 26.2 pg Low 27.0-32.0 [facility] Comment on above: Performed By: #### L 100.0500 ####[facility] [address] [place], [address] MCHC (RBC) [Mass/Vol] 29.9 g/dL Low 32-36 [facility] Comment on above: Performed By: #### L 100.0500 ####[facility] [address] [place], [address] MCV (RBC) [Entitic vol] 87.7 fL Normal 81-99 [facility] Comment on above: Performed By: #### L 100.0500 ####[facility] [address] [place], [address] Platelet mean volume (Bld) [Entitic vol] 8.9 fL Normal 6.2-12.0 [facility] Comment on above: Performed By: #### L 100.0500 ####[facility] [address] [place], [address] Platelets (Bld) [#/Vol] 157 10*3/uL Normal 150-450 [facility] Comment on above: Performed By: #### L 100.0500 ####[facility] [address] [place], [address] RBC (Bld) [#/Vol] 4.08 10*6/uL Low 4.2-5.4 [facility] Comment on above: Performed By: #### L 100.0500 ####[facility] [address] [place], [address] RDW SD 54.8 fl High 35.1-43.9 [facility] Comment on above: Performed By: #### L 100.0500 ####[facility] [address] [place], [address] WBC (Bld) [#/Vol] 8.0 10*3/uL Normal 4.4-11.0 [facility] Comment on above: Performed By: #### L 100.0500 ####[facility] [address] [place], [address] Basic Metabolic Profile (BMP )on 03-17-2025 BUN/CRE 15.0 RATIO Normal 10-20 [facility] Comment on above: Performed By: #### L 500.2500 ####[facility] [address] [place], [address] Calcium [Mass/Vol] 8.0 mg/dL Normal 7.6-11.0 [facility] Comment on above: Performed By: #### L 500.2500 ####[facility] [address] [place], [address] Chloride [Moles/Vol] 106 mmol/L Normal 98-108 [facility] Comment on above: Performed By: #### L 500.2500 ####[facility] [address] [place], [address] CO2 [Moles/Vol] 17.4 mmol/L Low 21.0-32.0 [facility] Comment on above: Performed By: #### L 500.2500 ####[facility] [address] [place], [address] Creatinine [Mass/Vol] 4.76 mg/dL High 0.70-1.20 [facility] Comment on above: Performed By: #### L 500.2500 ####[facility] [address] [place], [address] ECRCL 12.37 ml/min Low 50-250 [facility] Comment on above: Performed By: #### L 500.2500 ####[facility] [address] [place], [address] GAP 13 Normal 5-15 [facility] Comment on above: Performed By: #### L 500.2500 ####[facility] [address] [place], [address] GFR/1.73 sq M.predicted among non-blacks MDRD (S/P/Bld) [Vol rate/Area] 9 mL/min/{1.73_m2} Low >60 [facility] Comment on above: Result Comment: mL/m in/1.73m2 CKD-EPI Creatinine Equation (2020) Performed By: #### L 500.2500 ####[facility] [address] [place], [address] Glucose [Mass/Vol] 80 mg/dL Normal 70-99 [facility] Comment on above: Performed By: #### L 500.2500 ####[facility] [address] [place], [address] Potassium [Moles/Vol] 4.9 mmol/L Normal 3.3-5.1 [facility] Comment on above: Performed By: #### L 500.2500 ####[facility] [address] [place], [address] Sodium [Moles/Vol] 136 mmol/L Normal 133-145 [facility] Comment on above: Performed By: #### L 500.2500 ####[facility] [address] [place], [address] Urea nitrogen [Mass/Vol] 71 mg/dL High 4-19 [facility] Comment on above: Performed By: #### L 500.2500 ####[facility] [address] [place], [address] Bedside Glucoseon 03-17-2025 FINGERSTICK GLU 185 mg/dL High 74-106 [facility] Comment on above: Result Comment: RONNIE GEMENT OF PATIENT CARE PER NURSING PROTOCOL Performed By: #### L 501.080 ####[facility] [address] [place], [address] FINGERSTICK GLU 155 mg/dL High 74-106 [facility] Comment on above: Result Comment: RONNIE GEMENT OF PATIENT CARE PER NURSING PROTOCOL Performed By: #### L 501.080 ####[facility] [address] [place], [address] FINGERSTICK GLU 167 mg/dL High 74-106 [facility] Comment on above: Result Comment: RONNIE GEMENT OF PATIENT CARE PER NURSING PROTOCOL Performed By: #### L 501.080 ####[facility] [address] [place], [address] FINGERSTICK GLU 104 mg/dL Normal 74-106 [facility] Comment on above: Result Comment: RONNIE GEMENT OF PATIENT CARE PER NURSING PROTOCOL Performed By: #### L 501.080 ####[facility] [address] [place], [address] FINGERSTICK GLU 77 mg/dL Normal 74-106 [facility] Comment on above: Result Comment: RONNIE GEMENT OF PATIENT CARE PER NURSING PROTOCOL Performed By: #### L 501.080 ####[facility] [address] [place], [address] Ankle Brachial Indexon 03-16 Ankle Brachial Index Normal [facility] Anti-dsDNA Abon 03-16-2025 ANTI-DNA (DS)AB <1 Normal 0-9 [facility] Comment on above: Result Comment: Nega tive <5 Equivocal 5 - 9 Positive >9Performed at: [facility] [place], [place] [id number] Director: Rhys Fontanez PhD, Phone: [phone] Performed By: #### L 3100.5800, L3300.1200, L3100.5500, L3400.4200, L3100.5700 ####[facility] [address] [place], [address] Basic Metabolic Profile (BMP )on 03-16-2025 BUN/CRE 16.2 RATIO Normal 10-20 [facility] Comment on above: Performed By: #### L 500.2500 ####[facility] [address] [place], [address] Calcium [Mass/Vol] 8.2 mg/dL Normal 7.6-11.0 [facility] Comment on above: Performed By: #### L 500.2500 ####[facility] [address] [place], [address] Chloride [Moles/Vol] 108 mmol/L Normal 98-108 [facility] Comment on above: Performed By: #### L 500.2500 ####[facility] [address] [place], [address] CO2 [Moles/Vol] 16.4 mmol/L Low 21.0-32.0 [facility] Comment on above: Performed By: #### L 500.2500 ####[facility] [address] [place], [address] Creatinine [Mass/Vol] 5.96 mg/dL High 0.70-1.20 [facility] Comment on above: Performed By: #### L 500.2500 ####[facility] [address] [place], [address] ECRCL 9.88 ml/min Invalid Interpretation Code 50-250 [facility] Comment on above: Performed By: #### L 500.2500 ####[facility] [address] [place], [address] GAP 13 Normal 5-15 [facility] Comment on above: Performed By: #### L 500.2500 ####[facility] [address] [place], [address] GFR/1.73 sq M.predicted among non-blacks MDRD (S/P/Bld) [Vol rate/Area] 7 mL/min/{1.73_m2} Low >60 [facility] Comment on above: Result Comment: mL/m in/1.73m2 CKD-EPI Creatinine Equation (2020) Performed By: #### L 500.2500 ####[facility] [address] [place], [address] Glucose [Mass/Vol] 138 mg/dL High 70-99 [facility] Comment on above: Performed By: #### L 500.2500 ####[facility] [address] [place], [address] Potassium [Moles/Vol] 5.6 mmol/L High 3.3-5.1 [facility] Comment on above: Performed By: #### L 500.2500 ####[facility] [address] [place], [address] Sodium [Moles/Vol] 137 mmol/L Normal 133-145 [facility] Comment on above: Performed By: #### L 500.2500 ####[facility] [address] [place], [address] Urea nitrogen [Mass/Vol] 96 mg/dL High 4-19 [facility] Comment on above: Performed By: #### L 500.2500 ####[facility] [address] [place], [address] Bedside Glucoseon 03-16-2025 FINGERSTICK GLU 91 mg/dL Normal 74-106 [facility] Comment on above: Result Comment: RONNIE GEMENT OF PATIENT CARE PER NURSING PROTOCOL Performed By: #### L 501.080 ####[facility] [address] [place], [address] FINGERSTICK GLU 107 mg/dL High 74-106 [facility] Comment on above: Result Comment: RONNIE GEMENT OF PATIENT CARE PER NURSING PROTOCOL Performed By: #### L 501.080 ####[facility] [address] [place], [address] FINGERSTICK GLU 111 mg/dL High 74-106 [facility] Comment on above: Result Comment: RONNIE GEMENT OF PATIENT CARE PER NURSING PROTOCOL Performed By: #### L 501.080 ####[facility] [address] [place], [address] FINGERSTICK GLU 130 mg/dL High 74-106 [facility] Comment on above: Result Comment: RONNIE GEMENT OF PATIENT CARE PER NURSING PROTOCOL Performed By: #### L 501.080 ####[facility] [address] [place], [address] CBC W/Diff, Automatedon 05- Absolute Lymph 1.10 X10 3/uL Normal 0.83-4.51 [facility] Comment on above: Performed By: #### L 100.0100 ####[facility] [address] [place], [address] Absolute Neut 6.0 X10 3/uL Normal 2.0-7.7 [facility] Comment on above: Performed By: #### L 100.0100 ####[facility] [address] [place], [address] Basophils/100 WBC (Bld) 0.2 % Normal 0-1 [facility] Comment on above: Performed By: #### L 100.0100 ####[facility] [address] [place], [address] Eosinophils/100 WBC (Bld) 2.3 % Normal 0-5 [facility] Comment on above: Performed By: #### L 100.0100 ####[facility] [address] [place], [address] Erythrocyte distribution width (RBC) [Ratio] 17.5 % High 11.6-14.6 [facility] Comment on above: Performed By: #### L 100.0100 ####[facility] [address] [place], [address] Hematocrit (Bld) [Volume fraction] 35.6 % Low 37-47 [facility] Comment on above: Performed By: #### L 100.0100 ####[facility] [address] [place], [address] Hemoglobin (Bld) [Mass/Vol] 10.4 g/dL Low 12.0-15.0 [facility] Comment on above: Performed By: #### L 100.0100 ####[facility] [address] [place], [address] IG% 0.400 Normal 0.0-0.9 [facility] Comment on above: Result Comment: IG% - Immature Granulocytes (promyelocytes, myelocytes andmetamyelocytes) > 1% indicates that a LEFT SHIFT is Present. Performed By: #### L 100.0100 ####[facility] [address] [place], [address] Lymphocytes/100 WBC (Bld) 13.5 % Low 19-41 [facility] Comment on above: Performed By: #### L 100.0100 ####[facility] [address] [place], [address] MCH (RBC) [Entitic mass] 25.6 pg Low 27.0-32.0 [facility] Comment on above: Performed By: #### L 100.0100 ####[facility] [address] [place], [address] MCHC (RBC) [Mass/Vol] 29.2 g/dL Low 32-36 [facility] Comment on above: Performed By: #### L 100.0100 ####[facility] [address] [place], [address] MCV (RBC) [Entitic vol] 87.5 fL Normal 81-99 [facility] Comment on above: Performed By: #### L 100.0100 ####[facility] [address] [place], [address] Monocytes/100 WBC (Bld) 9.3 % Normal 0-10 [facility] Comment on above: Performed By: #### L 100.0100 ####[facility] [address] [place], [address] Neutrophils/100 WBC (Bld) 74.3 % High 47-70 [facility] Comment on above: Performed By: #### L 100.0100 ####[facility] [address] [place], [address] Nucleated RBC (Bld) [#/Vol] 0.7 10*3/uL Normal 0-5 [facility] Comment on above: Performed By: #### L 100.0100 ####[facility] [address] [place], [address] Platelet mean volume (Bld) [Entitic vol] 9.3 fL Normal 6.2-12.0 [facility] Comment on above: Performed By: #### L 100.0100 ####[facility] [address] [place], [address] Platelets (Bld) [#/Vol] 187 10*3/uL Normal 150-450 [facility] Comment on above: Performed By: #### L 100.0100 ####[facility] [address] [place], [address] RBC (Bld) [#/Vol] 4.07 10*6/uL Low 4.2-5.4 [facility] Comment on above: Performed By: #### L 100.0100 ####[facility] [address] [place], [address] RDW SD 55.1 fl High 35.1-43.9 [facility] Comment on above: Performed By: #### L 100.0100 ####[facility] [address] [place], [address] WBC (Bld) [#/Vol] 8.1 10*3/uL Normal 4.4-11.0 [facility] Comment on above: Performed By: #### L 100.0100 ####[facility] [address] [place], [address] CXR for Line Placementon CXR for Line Placement Normal [facility] Electrocardiogram reportOrde red By: Ramone Adams on 03-16-2025 EKG study [facility] [address] [place] [address] 12 Lead EKG 03/13/25 1401 MR#: [id number] Acct: [id number] Name: CAROLMISAEL D Rep #:[id number] : 1950 74 From: Ramone Adams MD Attending Dr: Dr. Seth Garnica, Status: ADM IN Ordering Dr: Seth Garnica [...] wave abnormality in Lateral leads Confirmed by ANGIE SANTIAGO, RAMONE ([id number]), publishing editor MIRNA DRAKE ([id number]) on 03/16/2025 8:31:01 AM Referred By: UG/TL Confirmed By: RAMONE ADAMS MD 03/16/25830 Date _ Ramone Adams MD CC: Dr. Seth Garnica, DO; Dr. Donal Will MD ~ Signed [facility] Work Phone: Foot min 3 Viewson 5 Foot min 3 Views Normal [facility] Gram Stainon 03-16-2025 GS Positive Normal [facility] Comment on above: Performed By: #### L 8200.1075, M100.2000, M100.3000 ####[facility] [address] [facility] [place], [place], [address] Gram stainOrdered By: Yonny Mims on 03-16-2025 Microscopic observation Gram stain Nom (Unsp spec) [facility] Hemoglobin A1con 03-16-2025 HbA1c (Bld) [Mass fraction] 7.3 % High <=5.6 [facility] Comment on above: Result Comment: Norm al < 5.7 % Prediabetic 5.7 - 6.4 % Diabetic >or= 6.5 % Please note range changes. Performed By: #### L 501.9985 ####[facility] [address] [place], [place], [id number] Hemoglobin A1c percentageOrd ered By: Tyler Juan on 03-16-2025 HbA1c (Bld) [Mass fraction] 7.3 % High <5.7 [facility] Comment on above: Normal < 5.7 % Predi abetic 5.7 - 6.4 % Diabetic >or= 6.5 % Please note range changes. L3890.6102on 03-16-2025 HEP B Surf Ag Non-Reactive Normal Nonreactive [facility] Comment on above: Order Comment: Reaso n for Exam: for dialysis arrangements Result Comment: Reac tive: Presumptive evidence of HBV. Repeatedly reactivesamples must be confirmed using a neutralization test([employer] HBsAg Confirmatory Test)Non-Reactive: HBsAg not detected; does not exclude thepossibility of exposure to HBV Performed By: #### L 3890.6102 ####[facility] [address] [place], [address] MR/POSTOP.ANEon 03-16-2025 MR/POSTOP.ANE Normal [facility] MR/NVJKUKUK0pi 03-16-2025 MR/POSTOPAN2 Normal [facility] MRSA Wound DNA by PCRon MRSA DNA ASSAY Negative Normal Negative [facility] Comment on above: Order Comment: right great toeright great toe Performed By: #### L 8200.1075, M100.2000, M100.3000 ####[facility] [address] [place], [address] SA DNA ASSAY Negative Normal Negative [facility] Comment on above: Order Comment: right great toeright great toe Performed By: #### L 8200.1075, M100.2000, M100.3000 ####[facility] [address] [place], [address] Operative Reporton Operative Report Normal [facility] Routine wound cultureOrdered By: Seth Garnica on 03-16-2025 Microbial culture, routine Enterococcus casseliflavus (D) Abnormal [facility] Staphylococcus aureus DNA de tection by probe and target amplification methodOrdered By: Seth Garnica on 03-16-2025 S. aureus DNA KATYA+probe Ql (Unsp spec) Negative Negative [facility] Activated partial thrombopla stin time (aPTT) in platelet poor plasma by coagulation aOrdered By: Lorraine Gupta on 03-15-2025 aPTT Coag (PPP) [Time] 28.0 s 24.1-36.2 [facility] Basic Metabolic Profile (BMP )on 03-15-2025 BUN/CRE 16.1 RATIO Normal 10-20 [facility] Comment on above: Performed By: #### L 500.2500 ####[facility] [address] [place], [address] Calcium [Mass/Vol] 8.5 mg/dL Normal 7.6-11.0 [facility] Comment on above: Performed By: #### L 500.2500 ####[facility] [address] [place], [address] Chloride [Moles/Vol] 111 mmol/L High 98-108 [facility] Comment on above: Performed By: #### L 500.2500 ####[facility] [address] [place], [address] CO2 [Moles/Vol] 14.7 mmol/L Low 21.0-32.0 [facility] Comment on above: Performed By: #### L 500.2500 ####[facility] [address] [place], [address] Creatinine [Mass/Vol] 5.79 mg/dL High 0.70-1.20 [facility] Comment on above: Performed By: #### L 500.2500 ####[facility] [address] [place], [address] ECRCL 10.10 ml/min Low 50-250 [facility] Comment on above: Performed By: #### L 500.2500 ####[facility] [address] [place], [address] GAP 12 Normal 5-15 [facility] Comment on above: Performed By: #### L 500.2500 ####[facility] [address] [place], [address] GFR/1.73 sq M.predicted among non-blacks MDRD (S/P/Bld) [Vol rate/Area] 7 mL/min/{1.73_m2} Low >60 [facility] Comment on above: Result Comment: mL/m in/1.73m2 CKD-EPI Creatinine Equation (2020) Performed By: #### L 500.2500 ####[facility] [address] [place], [address] Glucose [Mass/Vol] 106 mg/dL High 70-99 [facility] Comment on above: Performed By: #### L 500.2500 ####[facility] [address] [place], [address] Potassium [Moles/Vol] 6.2 mmol/L Invalid Interpretation Code 3.3-5.1 [facility] Comment on above: Result Comment: Crit ical Result(s) Called to Gabriela MENENDEZ (PCU): Stoner:??Results read back by same. Performed By: #### L 500.2500 ####[facility] [address] [place], [address] Sodium [Moles/Vol] 138 mmol/L Normal 133-145 [facility] Comment on above: Performed By: #### L 500.2500 ####[facility] [address] [place], [address] Urea nitrogen [Mass/Vol] 93 mg/dL High 4-19 [facility] Comment on above: Performed By: #### L 500.2500 ####[facility] [address] [place], [address] Bedside Glucoseon 03-15-2025 FINGERSTICK GLU 176 mg/dL High 74-106 [facility] Comment on above: Result Comment: RONNIE VELAZQUEZ OF PATIENT CARE PER NURSING PROTOCOL Performed By: #### L 501.080 ####[facility] [address] [place], [address] FINGERSTICK GLU 149 mg/dL High 74-106 [facility] Comment on above: Result Comment: RONNIE GEMENT OF PATIENT CARE PER NURSING PROTOCOL Performed By: #### L 501.080 ####[facility] [address] [place], [address] FINGERSTICK GLU 153 mg/dL High 74-106 [facility] Comment on above: Result Comment: RONNIE GEMENT OF PATIENT CARE PER NURSING PROTOCOL Performed By: #### L 501.080 ####[facility] [address] [place], [address] FINGERSTICK GLU 99 mg/dL Normal 74-106 [facility] Comment on above: Result Comment: RONNIE GEMENT OF PATIENT CARE PER NURSING PROTOCOL Performed By: #### L 501.080 ####[facility] [address] [place], [address] Consultation - Surgicalon Consultation - Surgical Normal [facility] International normalized rat io (INR) calculationOrdered By: Lorraine Gupta on 03-15-2025 INR Coag (Bld) [Relative time] 1.2 {INR} [facility] Partial Thromboplast Timeon 03-15-2025 aPTT Coag (Bld) [Time] 28.0 s Normal 24.1-36.2 [facility] Comment on above: Performed By: #### L 300.3900, L300.4310 ####[facility] [address] [place], [address] Potassiumon 03-15-2025 Potassium [Moles/Vol] 5.8 mmol/L High 3.3-5.1 [facility] Comment on above: Performed By: #### L 501.5600 ####[facility] [address] [place], [address] Prothrombin Time w/INRon INR Coag (PPP) [Relative time] 1.2 {INR} Normal [facility] Comment on above: Performed By: #### L 300.3900, L300.4310 ####[facility] [address] [place], [address] PT Coag (PPP) [Time] 15.5 s High 11.7-14.9 [facility] Comment on above: Performed By: #### L 300.3900, L300.4310 ####[facility] [address] [place], [address] Prothrombin timeOrdered By: Lorraine Gupta on 03-15-2025 PT Coag (PPP) [Time] 15.5 s High 11.7-14.9 [facility] Serum DNA double strand anti body assay (units/volume)Ordered By: Lorraine Gupta on 03-15-2025 DNA double strand Ab Qn (S) [IU]/mL 0-9 [facility] Comment on above: Negative <5 Equivoca l 5 - 9 Positive >9Performed at: [address] [id number] Director: Rhys Fontanez PhD, Phone: [phone] Serum classic neutrophil cyt oplasmic antibody assay (units/volume)Ordered By: Lorraine Gupta on 03-15-2025 Neutrophil cytoplasmic Ab.classic Qn (S) <1:20 titer Neg:<1:20 [facility] Serum glomerular basement me mbrane antibody assay (units/volume)Ordered By: Lorraine Gupta on 03-15-2025 Glomerular basement membrane Ab Qn (S) < 0.2 units 0.0-0.9 [facility] Comment on above: Performed at: - L [address] [id number] Director: Rhys Fontanez PhD, Phone: [phone] at: [facility] [address] [id number] Director: Jono Toscano MD, Phone: [phone] Serum or plasma complement C 4 measurement (mass/volume)Ordered By: Lorraine Gupta on 03-15-2025 Complement C4 [Mass/Vol] 33 mg/dL 12-38 [facility] Serum perinuclear neutrophil cytoplasmic antibody titer by immunofluorescenceOrdered By: Lorraine Gupta on 03-15-2025 Neutrophil cytoplasmic Ab.perinuclear IF (S) [Titer] <1:20 titer Neg:<1:20 [facility] Comment on above: The presence of posi tive fluorescence exhibiting P-ANCA orC- ANCA patterns alone is not specific for the diagnosis ofWegener's Granulomatosis (WG) or microscopic polyangiitis.Decisions about treatment should not be based solely onANCA IFA results. The [employer] ANCA [employer] Consensusrecommends follow up testing of positive sera with both MS-3 and MPO-ANCA enzyme immunoassays. As many as 5% serumsamples are positive only by EIA. Ref. AM J Clin Vvfeyv5900;111:[id number]. Urine Cultureon 03-15-2025 URC Culture exhibits no growth. Normal [facility] Comment on above: Performed By: #### M 100.2200 ####[facility] [address] [place], [place], [id number] 12 Lead EKGon 03-14-2025 12 Lead EKG Normal [facility] Basic Metabolic Profile (BMP )on 03-14-2025 GAP UNABLE TO CALCULATE Low 5-15 [facility] Comment on above: Performed By: #### L 500.2500 ####[facility] [address] [place], [address] BUN/CRE 17.1 RATIO Normal 10-20 [facility] Comment on above: Performed By: #### L 100.0100, L500.2500 ####[facility] [address] [place], [address] Calcium [Mass/Vol] 8.9 mg/dL Normal 7.6-11.0 [facility] Comment on above: Performed By: #### L 100.0100, L500.2500 ####[facility] [address] [place], [address] Chloride [Moles/Vol] 114 mmol/L High 98-108 [facility] Comment on above: Performed By: #### L 100.0100, L500.2500 ####[facility] [address] [place], [address] CO2 [Moles/Vol] 15.1 mmol/L Low 21.0-32.0 [facility] Comment on above: Performed By: #### L 100.0100, L500.2500 ####[facility] [address] [place], [address] Creatinine [Mass/Vol] 5.38 mg/dL High 0.70-1.20 [facility] Comment on above: Performed By: #### L 100.0100, L500.2500 ####[facility] [address] [place], [address] ECRCL 10.71 ml/min Low 50-250 [facility] Comment on above: Performed By: #### L 100.0100, L500.2500 ####[facility] [address] [place], [address] GAP 11 Normal 5-15 [facility] Comment on above: Performed By: #### L 100.0100, L500.2500 ####[facility] [address] [place], [address] GFR/1.73 sq M.predicted among non-blacks MDRD (S/P/Bld) [Vol rate/Area] 8 mL/min/{1.73_m2} Low >60 [facility] Comment on above: Result Comment: mL/m in/1.73m2 CKD-EPI Creatinine Equation (2020) Performed By: #### L 100.0100, L500.2500 ####[facility] [address] [place], [address] Glucose [Mass/Vol] 79 mg/dL Normal 70-99 [facility] Comment on above: Performed By: #### L 100.0100, L500.2500 ####[facility] [address] [place], [address] Potassium [Moles/Vol] 7.4 mmol/L Invalid Interpretation Code 3.3-5.1 [facility] Comment on above: Result Comment: Crit ical Result(s) Called at 0750: TO LMCCLUGGAGE by:KCLAPPER??Results read back by same. Performed By: #### L 100.0100, L500.2500 ####[facility] [address] [place], [address] Sodium [Moles/Vol] 140 mmol/L Normal 133-145 [facility] Comment on above: Performed By: #### L 100.0100, L500.2500 ####[facility] [address] [place], [address] Urea nitrogen [Mass/Vol] 92 mg/dL High 4-19 [facility] Comment on above: Performed By: #### L 100.0100, L500.2500 ####[facility] [address] [place], [address] Bedside Glucoseon 03-14-2025 FINGERSTICK GLU 119 mg/dL High 74-106 [facility] Comment on above: Result Comment: RONNIE GEMENT OF PATIENT CARE PER NURSING PROTOCOL Performed By: #### L 501.080 ####[facility] [address] [place], [address] FINGERSTICK GLU 137 mg/dL High 74-106 [facility] Comment on above: Result Comment: RONNIE GEMENT OF PATIENT CARE PER NURSING PROTOCOL Performed By: #### L 501.080 ####[facility] [address] [place], [address] FINGERSTICK GLU 76 mg/dL Normal 74-106 [facility] Comment on above: Result Comment: RONNIE GEMENT OF PATIENT CARE PER NURSING PROTOCOL Performed By: #### L 501.080 ####[facility] [address] [place], [address] FINGERSTICK GLU 69 mg/dL Low 74-106 [facility] Comment on above: Result Comment: RONNIE GEMENT OF PATIENT CARE PER NURSING PROTOCOL Performed By: #### L 501.080 ####[facility] [address] [place], [address] FINGERSTICK GLU 76 mg/dL Normal 74-106 [facility] Comment on above: Result Comment: RONNIE GEMENT OF PATIENT CARE PER NURSING PROTOCOL Performed By: #### L 501.080 ####[facility] [address] [place], [address] CBC W/Diff, Automatedon 04-3 0-2025 Absolute Lymph 1.05 X10 3/uL Normal 0.83-4.51 [facility] Comment on above: Performed By: #### L 100.0100, L500.2500 ####[facility] [address] [place], [address] Absolute Neut 5.7 X10 3/uL Normal 2.0-7.7 [facility] Comment on above: Performed By: #### L 100.0100, L500.2500 ####[facility] [address] [place], [address] Basophils/100 WBC (Bld) 0.3 % Normal 0-1 [facility] Comment on above: Performed By: #### L 100.0100, L500.2500 ####[facility] [address] [place], [address] Eosinophils/100 WBC (Bld) 1.1 % Normal 0-5 [facility] Comment on above: Performed By: #### L 100.0100, L500.2500 ####[facility] [address] [place], [address] Erythrocyte distribution width (RBC) [Ratio] 17.4 % High 11.6-14.6 [facility] Comment on above: Performed By: #### L 100.0100, L500.2500 ####[facility] [address] [place], [address] Hematocrit (Bld) [Volume fraction] 40.1 % Normal 37-47 [facility] Comment on above: Performed By: #### L 100.0100, L500.2500 ####[facility] [address] [place], [address] Hemoglobin (Bld) [Mass/Vol] 11.5 g/dL Low 12.0-15.0 [facility] Comment on above: Performed By: #### L 100.0100, L500.2500 ####[facility] [address] [place], [address] IG% 0.700 Normal 0.0-0.9 [facility] Comment on above: Result Comment: IG% - Immature Granulocytes (promyelocytes, myelocytes andmetamyelocytes) > 1% indicates that a LEFT SHIFT is Present. Performed By: #### L 100.0100, L500.2500 ####[facility] [address] [place], [address] Lymphocytes/100 WBC (Bld) 14.0 % Low 19-41 [facility] Comment on above: Performed By: #### L 100.0100, L500.2500 ####[facility] [address] [place], [address] MCH (RBC) [Entitic mass] 26.0 pg Low 27.0-32.0 [facility] Comment on above: Performed By: #### L 100.0100, L500.2500 ####[facility] [address] [place], [address] MCHC (RBC) [Mass/Vol] 28.7 g/dL Low 32-36 [facility] Comment on above: Performed By: #### L 100.0100, L500.2500 ####[facility] [address] [place], [address] MCV (RBC) [Entitic vol] 90.5 fL Normal 81-99 [facility] Comment on above: Performed By: #### L 100.0100, L500.2500 ####[facility] [address] [place], [address] Monocytes/100 WBC (Bld) 7.7 % Normal 0-10 [facility] Comment on above: Performed By: #### L 100.0100, L500.2500 ####[facility] [address] [place], [address] Neutrophils/100 WBC (Bld) 76.2 % High 47-70 [facility] Comment on above: Performed By: #### L 100.0100, L500.2500 ####[facility] [address] [place], [address] Nucleated RBC (Bld) [#/Vol] 1.7 10*3/uL Normal 0-5 [facility] Comment on above: Performed By: #### L 100.0100, L500.2500 ####[facility] [address] [place], [address] Platelet mean volume (Bld) [Entitic vol] 9.6 fL Normal 6.2-12.0 [facility] Comment on above: Performed By: #### L 100.0100, L500.2500 ####[facility] [address] [place], [address] Platelets (Bld) [#/Vol] 232 10*3/uL Normal 150-450 [facility] Comment on above: Performed By: #### L 100.0100, L500.2500 ####[facility] [address] [place], [address] RBC (Bld) [#/Vol] 4.43 10*6/uL Normal 4.2-5.4 [facility] Comment on above: Performed By: #### L 100.0100, L500.2500 ####[facility] [address] [place], [address] RDW SD 57.9 fl High 35.1-43.9 [facility] Comment on above: Performed By: #### L 100.0100, L500.2500 ####[facility] [address] [place], [address] WBC (Bld) [#/Vol] 7.5 10*3/uL Normal 4.4-11.0 [facility] Comment on above: Performed By: #### L 100.0100, L500.2500 ####[facility] [address] [place], [address] CPK Total, Creatine Kinaseon 03-14-2025 CPK TOTAL 26 U/L Normal 24-195 [facility] Comment on above: Performed By: #### L 501.3620 ####[facility] [address] [place], [address] Consultation - Nephrologyon 03-14-2025 Consultation - Nephrology Normal [facility] Creatinine, Urineon 03-14-20 25 URINE CREAT 230.00 mg/dL High 28.00-217.00 [facility] Comment on above: Performed By: #### L 502.0300 ####[facility] [address] [place], [address] Electrocardiogram reportOrde red By: Ramone Adams on 03-14-2025 EKG study [facility] [address] [place] [address] 12 Lead EKG 03/14/25 0812 MR#: [id number] Acct: [id number] Name: MISAEL MEDINA Rep #:[id number] : 1950 74 From: Ramone Adams MD Attending Dr: Dr. Seth Garnica DO Status: ADM IN Ordering Dr: Fitz Deleon DO Date: 0 03/13/25 Location: U Sex: F C Admitted: [...] COMPARISON REQUIRED DATA IS UNCONFIRMED Confirmed by ANGIE SANTIAGO, RAMONE ([id number]), publishing editor MIRNA DRAKE ([id number]) on 03/14/2025 1:22:42 PM Referred By: WANDA Confirmed By: RAMONE ADAMS MD 03/14/25 1322 Date _ Ramone Adams MD CC: Dr. Seth Garnica DO; Dr. Donal Will MD; Dr. Fitz Deleon, ~ Signed [facility] Work Phone: EKG study [facility] [address] [place] [address] 12 Lead EKG 03/14/25 1024 MR#: [id number] Acct: [id number] Name: DAVID MEDINAINA Renée Rep #:[id number] : 1950 74 From: Ramone Adams MD Attending Dr: Dr. Seth Garnica DO Status: ADM IN Ordering Dr: Seth Garnica DO Da te: 03/14/25 Location: U Sex: F C Admitted: 03/13/25 [...] ECG No previous ECGs available Confirmed by ANGIE SANTIAGO, RAMONE ([id number]), publishing editor MIRNA DRAKE ([id number]) on 03/14/2025 1:21:50 PM Referred By: WILDA Confirmed By: RAMONE ADAMS MD 03/14/25 1321 Date _ Ramone Adams MD CC: Dr. Seth Garnica, DO; Dr. Donal Will MD ~ Signed [facility] Work Phone: Kidney and Bladderon 025 Kidney and Bladder Normal [facility] Osmolality, Urineon 03-14-20 25 OSMOLALITY,UR 353 mOsm/KG Normal [facility] Comment on above: Result Comment: Norm al Urine Reference Ranges Random: 50 - 1200 mOsm/kg H20 depending on fluid intake Random: >850 mOsm/kg after 12 hour fluid restriction 24 hour: 300 - 900 mOsm/kg H2O Performed By: #### L 500.9400, L501.7400 ####[facility] [address] [place], [address] Serum or plasma creatine kin ase activityOrdered By: Lorraine Gupta on 03-14-2025 CK [Catalytic activity/Vol] 26 U/L 24-195 [facility] Urea Nitrogen, Urineon 03-14 URINE UREA 374 mg/dL Normal NO RANGE EST. [facility] Comment on above: Performed By: #### L 502.0715 ####[facility] [address] [place], [place], [id number] Urine creatinine measurement (mass/volume)Ordered By: Seth Garnica on 03-14-2025 Creatinine (U) [Mass/Vol] 230.00 mg/dL High 28.00-217.00 [facility] Urine cultureOrdered By: Rose Deleon on 03-14-2025 Bacteria identified Cx Nom (U) Culture exhibits no growth. [facility] 12 Lead EKGon 03-13-2025 12 Lead EKG Normal [facility] 12 Lead EKG Normal [facility] Absolute neutrophil countOrd ered By: Fitz Deleon on 03-13-2025 Neutrophils (Bld) [#/Vol] 6.1 10*3/uL 2.0-7.7 [facility] Anion gap in Serum or Plasma Ordered By: Fitz Deleon on 03-13-2025 Anion gap [Moles/Vol] 11 mmol/L 5- [facility] BUN/creatinine ratioOrdered By: Fitz Deleon on 03-13-2025 Urea nitrogen/Creatinine [Mass ratio] 17.3 mg/mg 10- [facility] Basic Metabolic Profile (BMP )on 03-13-2025 BUN/CRE 17.3 RATIO Normal - [facility] Comment on above: Performed By: #### L 503.7505, L500.2500, L100.0100 ####[facility] [address] [place], [address] Calcium [Mass/Vol] 8.5 mg/dL Normal 7.6-11.0 [facility] Comment on above: Performed By: #### L 503.7505, L500.2500, L100.0100 ####[facility] [address] [place], [address] Chloride [Moles/Vol] 114 mmol/L High 98-108 [facility] Comment on above: Performed By: #### L 503.7505, L500.2500, L100.0100 ####[facility] [address] [place], [address] CO2 [Moles/Vol] 16.6 mmol/L Low 21.0-32.0 [facility] Comment on above: Performed By: #### L 503.7505, L500.2500, L100.0100 ####[facility] [address] [place], [address] Creatinine [Mass/Vol] 5.10 mg/dL High 0.70-1.20 [facility] Comment on above: Performed By: #### L 503.7505, L500.2500, L100.0100 ####[facility] [address] [place], [address] ECRCL 11.41 ml/min Low 50-250 [facility] Comment on above: Performed By: #### L 503.7505, L500.2500, L100.0100 ####[facility] [address] [place], [address] GAP 11 Normal 5-15 [facility] Comment on above: Performed By: #### L 503.7505, L500.2500, L100.0100 ####[facility] [address] [place], [address] GFR/1.73 sq M.predicted among non-blacks MDRD (S/P/Bld) [Vol rate/Area] 8 mL/min/{1.73_m2} Low >60 [facility] Comment on above: Result Comment: mL/m in/1.73m2 CKD-EPI Creatinine Equation (2020) Performed By: #### L 503.7505, L500.2500, L100.0100 ####[facility] [address] [place], [address] Glucose [Mass/Vol] 138 mg/dL High 70-99 [facility] Comment on above: Performed By: #### L 503.7505, L500.2500, L100.0100 ####[facility] [address] [place], [address] Potassium [Moles/Vol] 6.7 mmol/L Invalid Interpretation Code 3.3-5.1 [facility] Comment on above: Result Comment: Crit ical Result(s) Called at: 1722 by: ZACHARY CHEN??Results read back by same. Performed By: #### L 503.7505, L500.2500, L100.0100 ####[facility] [address] [place], [address] Sodium [Moles/Vol] 141 mmol/L Normal 133-145 [facility] Comment on above: Performed By: #### L 503.7505, L500.2500, L100.0100 ####[facility] [address] [place], [address] Urea nitrogen [Mass/Vol] 88 mg/dL High 4-19 [facility] Comment on above: Performed By: #### L 503.7505, L500.2500, L100.0100 ####[facility] [address] [place], [address] Basophil percentageOrdered B y: Fitz Deleon on 03-13-2025 Basophils/100 WBC (Bld) 0.3 % 0-1 [facility] Bedside Glucoseon 03-13-2025 FINGERSTICK GLU 234 mg/dL High 74-106 [facility] Comment on above: Result Comment: RONNIE VELAZQUEZ OF PATIENT CARE PER NURSING PROTOCOL Performed By: #### L 501.080 ####[facility] [address] [place], [address] Bilirubin Test strip Ql (U)O rdered By: Fitz Deleon on 03-13-2025 Bilirubin Ql (U) 1 mg/dL High Negative [facility] Comment on above: COLOR OF URINE MAY A FFECT DIPSTICK RESULTS. CBC W/Diff, Automatedon 02-14 Absolute Lymph 0.89 X10 3/uL Normal 0.83-4.51 [facility] Comment on above: Performed By: #### L 503.7505, L500.2500, L100.0100 ####[facility] [address] [place], [address] Absolute Neut 6.1 X10 3/uL Normal 2.0-7.7 [facility] Comment on above: Performed By: #### L 503.7505, L500.2500, L100.0100 ####[facility] [address] [place], [address] Basophils/100 WBC (Bld) 0.3 % Normal 0-1 [facility] Comment on above: Performed By: #### L 503.7505, L500.2500, L100.0100 ####[facility] [address] [place], [address] Eosinophils/100 WBC (Bld) 0.6 % Normal 0-5 [facility] Comment on above: Performed By: #### L 503.7505, L500.2500, L100.0100 ####[facility] [address] [place], [address] Erythrocyte distribution width (RBC) [Ratio] 17.4 % High 11.6-14.6 [facility] Comment on above: Performed By: #### L 503.7505, L500.2500, L100.0100 ####[facility] [address] [place], [address] Hematocrit (Bld) [Volume fraction] 38.7 % Normal 37-47 [facility] Comment on above: Performed By: #### L 503.7505, L500.2500, L100.0100 ####[facility] [address] [place], [address] Hemoglobin (Bld) [Mass/Vol] 11.3 g/dL Low 12.0-15.0 [facility] Comment on above: Performed By: #### L 503.7505, L500.2500, L100.0100 ####[facility] [address] [place], [address] IG% 0.600 Normal 0.0-0.9 [facility] Comment on above: Result Comment: IG% - Immature Granulocytes (promyelocytes, myelocytes andmetamyelocytes) > 1% indicates that a LEFT SHIFT is Present. Performed By: #### L 503.7505, L500.2500, L100.0100 ####[facility] [address] [place], [address] Lymphocytes/100 WBC (Bld) 11.5 % Low 19-41 [facility] Comment on above: Performed By: #### L 503.7505, L500.2500, L100.0100 ####[facility] [address] [place], [address] MCH (RBC) [Entitic mass] 26.1 pg Low 27.0-32.0 [facility] Comment on above: Performed By: #### L 503.7505, L500.2500, L100.0100 ####[facility] [address] [place], [address] MCHC (RBC) [Mass/Vol] 29.2 g/dL Low 32-36 [facility] Comment on above: Performed By: #### L 503.7505, L500.2500, L100.0100 ####[facility] [address] [place], [address] MCV (RBC) [Entitic vol] 89.4 fL Normal 81-99 [facility] Comment on above: Performed By: #### L 503.7505, L500.2500, L100.0100 ####[facility] [address] [place], [address] Monocytes/100 WBC (Bld) 7.8 % Normal 0-10 [facility] Comment on above: Performed By: #### L 503.7505, L500.2500, L100.0100 ####[facility] [address] [place], [address] Neutrophils/100 WBC (Bld) 79.2 % High 47-70 [facility] Comment on above: Performed By: #### L 503.7505, L500.2500, L100.0100 ####[facility] [address] [place], [address] Nucleated RBC (Bld) [#/Vol] 1.9 10*3/uL Normal 0-5 [facility] Comment on above: Performed By: #### L 503.7505, L500.2500, L100.0100 ####[facility] [address] [place], [address] Platelet mean volume (Bld) [Entitic vol] 9.4 fL Normal 6.2-12.0 [facility] Comment on above: Performed By: #### L 503.7505, L500.2500, L100.0100 ####[facility] [address] [place], [address] Platelets (Bld) [#/Vol] 241 10*3/uL Normal 150-450 [facility] Comment on above: Performed By: #### L 503.7505, L500.2500, L100.0100 ####[facility] [address] [place], [address] RBC (Bld) [#/Vol] 4.33 10*6/uL Normal 4.2-5.4 [facility] Comment on above: Performed By: #### L 503.7505, L500.2500, L100.0100 ####[facility] [address] [place], [address] RDW SD 57.1 fl High 35.1-43.9 [facility] Comment on above: Performed By: #### L 503.7505, L500.2500, L100.0100 ####[facility] [address] [place], [address] WBC (Bld) [#/Vol] 7.7 10*3/uL Normal 4.4-11.0 [facility] Comment on above: Performed By: #### L 503.7506, L500.2500, L100.0100 ####[facility] [address] [place], [address] Carbon dioxide, total [Moles /volume] in Central venous bloodOrdered By: Fitz Deleon on 03-13-2025 CO2 [Moles/Vol] 16.6 mmol/L Low 21.0-32.0 [facility] Chest PA and Lateralon 03-13 Chest PA and Lateral Normal [facility] Chloride assayOrdered By: Priscila Deleon on 03-13-2025 Chloride [Moles/Vol] 114 mmol/L High 98-108 [facility] Emergency Department Summary on 03-13-2025 Emergency Department Summary Normal [facility] Eosinophil percentageOrdered By: Fitz Deleon on 03-13-2025 Eosinophils/100 WBC (Bld) 0.6 % 0-5 [facility] Epithelial cells.squamous LM Ql (Urine sed)Ordered By: Fizt Deleon on 03-13-2025 Epithelial cells.squamous LM.HPF (Urine sed) [#/Area] 10 /[HPF] 5-10 [facility] Erythrocyte distribution wid th (RBC) [Ratio]Ordered By: Fitz Deleon on 03-13-2025 Erythrocyte distribution width (RBC) [Entitic vol] 57.1 fL High 35.1-43.9 [facility] Erythrocyte distribution wid th ratioOrdered By: Fitz Deleon on 03-13-2025 Erythrocyte distribution width (RBC) [Ratio] 17.4 % High 11.6-14.6 [facility] Estimation of creatinine mp aranceOrdered By: Fitz Deleon on 03-13-2025 Estimated Creatinine Clearance Calc 11.41 ml/min Low 50-250 [facility] GFR/1.73 sq M.predicted hiro g non-blacks MDRD (S/P/Bld) [Vol rate/Area]Ordered By: Fitz Deleon on 03-13-2025 Estimated GFR (MDRD) Non-Af Amer 8 Low >60 [facility] Comment on above: mL/min/1.73m2 CKD-EP I Creatinine Equation (2020) Glucose Ql (U)Ordered By: Priscila Deleon on 03-13-2025 Urine Glucose (UA) Normal mg/dl Normal [facility] Glucose measurement at bedsi deOrdered By: Fitz Deleon on 03-13-2025 Bedside Glucose (Misc Panel) 234 mg/dL High 74-106 [facility] Comment on above: MANAGEMENT OF PATIEN T CARE PER NURSING PROTOCOL H AND P Exam - Hospitaliston 03-13-2025 H&P Exam - Hospitalist Normal [facility] Hematocrit Auto (Bld) [Volum e fraction]Ordered By: Fitz Deleon on 03-13-2025 Hematocrit (Bld) [Volume fraction] 38.7 % 37-47 [facility] Hemoglobin measurementOrdere d By: Fitz Deleon on 03-13-2025 Hemoglobin (Bld) [Mass/Vol] 11.3 g/dL Low 12.0-15.0 [facility] Immature granulocytes/100 WB C Auto (Bld)Ordered By: Fitz Deleon on 03-13-2025 Immature granulocytes/100 WBC (Bld) 0.600 % 0.0-0.9 [facility] Comment on above: IG% - Immature Granu locytes (promyelocytes, myelocytes and metamyelocytes) > 1% indicates that a LEFT SHIFT is Present. International normalized rat io (INR) calculationOrdered By: Fitz Deleon on 03-13-2025 INR Coag (Bld) [Relative time] 1.2 {INR} [facility] Ketones Test strip Ql (U)Ord ered By: Fitz Deleon on 03-13-2025 Ketones Ql (U) Negative Negative [facility] L499.0042on 03-13-2025 Trop T High Sen 159 ng/L Invalid Interpretation Code <=14 [facility] Comment on above: Result Comment: Crit ical Result(s) Called at: 1811 by: ZACHARY PERERA??Results read back by same. Performed By: #### L 499.0042 ####[facility] [address] [place], [address] L499.0043on 03-13-2025 Trop T High Sen 160 ng/L Invalid Interpretation Code <=14 [facility] Comment on above: Result Comment: Crit ical Result(s) Called at: 2214 by:??ZACHARY NORMAN Results read back by same. Performed By: #### L 499.0043 ####[facility] [address] [place], [address] L501.4021on 03-13-2025 Trop T High Sen 159 ng/L Invalid Interpretation Code <=14 [facility] Comment on above: Result Comment: Crit ical Result(s) Called at: 1749 by: ZACHARY RUTHERFORD??Results read back by same. Performed By: #### L 501.4021 ####[facility] [address] [place], [address] L503.7505on 03-13-2025 proBNP > 60056 High <=900 [facility] Comment on above: Result Comment: Hear t Failure Unlikely: < 300 pg/mLHeart Failure Likely< 50 Years: > 450 pg/mL50-75 Years: > 900 pg/mL>75 Years: > 1800 pg/mL Performed By: #### L 503.7505, L500.2500, L100.0100 ####[facility] [address] [facility] [place], [place], [address] Laboratory - Microbiology an d Antimicrobial susceptibilityOrdered By: Teri Landon on 03-13-2025 HBV surface Ag Ql (S) Non-Reactive Nonreactive [facility] Comment on above: Reactive: Presumptiv e evidence of HBV. Repeatedly reactive samples must be confirmed using a neutralization test ([employer] HBsAg Confirmatory Test)Non-Reactive: HBsAg not detected; does not exclude the possibility of exposure to HBV Lymphocytes Auto (Unsp spec) [#/Vol]Ordered By: Fitz Deleon on 03-13-2025 Lymphocytes (Bld) [#/Vol] 0.89 10*3/uL 0.83-4.51 [facility] Lymphocytes/100 WBC Auto (Un sp spec)Ordered By: Fitz Deleon on 03-13-2025 Lymphocytes/100 WBC (Bld) 11.5 % Low 19-41 [facility] MCV (mean corpuscular volume ) determinationOrdered By: Fitz Deleon on 03-13-2025 MCV (RBC) [Entitic vol] 89.4 fL 81-99 [facility] Magnesiumon 03-13-2025 Magnesium [Mass/Vol] 2.6 mg/dL High 1.5-2.2 [facility] Comment on above: Performed By: #### L 501.5200, L501.2300 ####[facility] [address] [place], [place], [address] Magnesium (Unsp spec) [Mass/ Vol]Ordered By: Fitz Deleon on 03-13-2025 Magnesium [Mass/Vol] 2.6 mg/dL High 1.5-2.2 [facility] Magnesium measurement (mass/ volume)Ordered By: Fitz Deleon on 03-13-2025 Magnesium (Unsp spec) [Mass/Vol] 2.6 mg/dL High 1.5-2.2 [facility] Mean corpuscular hemoglobin (MCH) determinationOrdered By: Fitz Deleon on 03-13-2025 MCH (RBC) [Entitic mass] 26.1 pg Low 27.0-32.0 [facility] Mean corpuscular hemoglobin concentration (MCHC) determinationOrdered By: Fitz Deleon on 03-13-2025 MCHC (RBC) [Mass/Vol] 29.2 g/dL Low 32-36 [facility] Mean platelet volume determi nationOrdered By: Fitz Deleon on 03-13-2025 Platelet mean volume (Bld) [Entitic vol] 9.4 fL 6.2-12.0 [facility] Microscopic analysis of urin e for red blood cells (RBC)Ordered By: Fitz Deleon on 03-13-2025 Microscopic analysis of urine for red blood cells (RBC) 5-10 SEEN /hpf 0-5 [facility] Urine RBC 5-10 SEEN /hpf 0-5 [facility] Monocyte percentageOrdered B y: Fitz Deleon on 03-13-2025 Monocytes/100 WBC (Bld) 7.8 % 0-10 [facility] Mucus LM Ql (Urine sed)Order ed By: Fitz Deleon on 03-13-2025 Mucus Ql (Urine sed) 0 SEEN /hpf [facility] Natriuretic peptide.B prohor marlen N-Terminal [Mass/Vol]Ordered By: Fitz Deleon on 03-13-2025 GJ-XqoI-Iaym Natriuretic Peptide II > 83366 pg/mL High <900 [facility] Comment on above: Heart Failure Unlike ly: < 300 pg/mLHeart Failure Likely< 50 Years: > 450 pg/mL50-75 Years: > 900 pg/mL>75 Years: > 1800 pg/mL Natriuretic peptide.B prohor marlen N-Terminal [Mass/volume] in Serum or PlasmaOrdered By: Fitz Deleon on 03-13-2025 Natriuretic peptide.B prohormone N-Terminal [Mass/Vol] > 02175 pg/mL High <900 [facility] Comment on above: Heart Failure Unlike ly: < 300 pg/mLHeart Failure Likely< 50 Years: > 450 pg/mL50-75 Years: > 900 pg/mL>75 Years: > 1800 pg/mL Neutrophil percentageOrdered By: Fitz Deleon on 03-13-2025 Neutrophils/100 WBC (Bld) 79.2 % High 47-70 [facility] Nitrite Test strip Ql (U)Ord ered By: Fitz Deleon on 03-13-2025 Nitrite Ql (U) Negative Negative [facility] Nucleated red blood cell per centageOrdered By: Fitz Deleon on 03-13-2025 Nucleated RBC/100 WBC (Bld) [Ratio] 1.9 % 0-5 [facility] Osmolality urOrdered By: Willie Muñoz on 03-13-2025 Osmolality (U) [Osmolality] 353 mOsm/KG >50 [facility] Comment on above: Normal Urine Referen ce Ranges Random: 50 - 1200 mOsm/kg H20 depending on fluid intake Random: >850 mOsm/kg after 12 hour fluid restriction 24 hour: ~300 - 900 mOsm/kg H2O Osmolality, Serumon 03-13-20 25 OSMOLALITY,SER 330 mOsm/KG High 280-301 [facility] Comment on above: Performed By: #### L 501.7300 ####[facility] [address] [place], [address] Partial Thromboplast Timeon 03-13-2025 aPTT Coag (Bld) [Time] 29.4 s Normal 24.1-36.2 [facility] Comment on above: Performed By: #### L 300.4310, L300.3900 ####[facility] [address] [place], [address] Phosphoruson 03-13-2025 Phosphate [Mass/Vol] 5.5 mg/dL High 2.7-4.5 [facility] Comment on above: Performed By: #### L 501.5200, L501.2300 ####[facility] [address] [place], [address] Platelet countOrdered By: Priscila Deleon on 03-13-2025 Platelets (Bld) [#/Vol] 241 10*3/uL 150-450 [facility] Potassium (Unsp spec) [Mass/ Vol]Ordered By: Fitz Deleon on 03-13-2025 Potassium [Moles/Vol] 6.7 mmol/L High 3.3-5.1 [facility] Comment on above: Critical Result(s) C alled at: 1722 by: ZACHARY GARCIA TO CAYLA TENENT Results read back by same. Protein Test strip Ql (U)Ord ered By: Fitz Deleon on 03-13-2025 Protein Ql (U) 100 mg/dl High Negative [facility] Prothrombin Time w/INRon INR Coag (PPP) [Relative time] 1.2 {INR} Normal [facility] Comment on above: Performed By: #### L 300.4310, L300.3900 ####[facility] [address] [place], [address] PT Coag (PPP) [Time] 15.7 s High 11.7-14.9 [facility] Comment on above: Performed By: #### L 300.4310, L300.3900 ####[facility] [address] [place], [address] Prothrombin timeOrdered By: Fitz Deleon on 03-13-2025 PT Coag (PPP) [Time] 15.7 s High 11.7-14.9 [facility] RBC Auto (Bld) [#/Vol]Ordere d By: Fitz Deleon on 03-13-2025 RBC (Bld) [#/Vol] 4.33 10*6/uL 4.2-5.4 [facility] Serum creatinine measurement (mass/volume)Ordered By: Fitz Deleon on 03-13-2025 Creatinine [Mass/Vol] 5.10 mg/dL High 0.70-1.20 [facility] Serum glucose measurement (m ass/volume)Ordered By: Fitz Deleon on 03-13-2025 Glucose [Mass/Vol] 138 mg/dL High 70-99 [facility] Serum or plasma calcium ras urement (mass/volume)Ordered By: Fitz Deleon on 03-13-2025 Calcium [Mass/Vol] 8.5 mg/dL 7.6-11.0 [facility] Serum or plasma urea nitroge n measurement (mass/volume)Ordered By: Fitz Deleon on 03-13-2025 Urea nitrogen [Mass/Vol] 88 mg/dL High 4-19 [facility] Serum phosphorus measurement Ordered By: Fitz Deleon on 03-13-2025 Phosphorus Level 5.5 mg/dL High 2.7-4.5 [facility] Sodium levelOrdered By: Fitz Deleon on 03-13-2025 Sodium [Moles/Vol] 141 mmol/L 133-145 [facility] Squamous epithelial cells de tection in urine sediment by light microscopyOrdered By: Fitz Deleon on 03-13-2025 Epithelial cells.squamous LM Ql (Urine sed) 10-25 SEEN /hpf 5-10 [facility] Transitional cells LM Ql (Ur ine sed)Ordered By: Fitz Deleon on 03-13-2025 Urine Transitional Epithelial Cells 0-5 SEEN /hpf 0-5 [facility] Transitional cells detection in urine sediment by light microscopyOrdered By: Fitz Deleon on 03-13-2025 Transitional cells LM Ql (Urine sed) 0-5 SEEN /hpf 0-5 [facility] Troponin T.cardiac High sens itivity method [Mass/Vol]Ordered By: Fitz Deleon on 03-13-2025 Troponin T High Sensitivity 2 Hour 159 ng/L High <14 [facility] Comment on above: Critical Result(s) C alled at: 1812 by: ZACHARY PARSONS Results read back by same. Troponin T High Sensitivity 159 ng/L High <14 [facility] Comment on above: Critical Result(s) C alled at: 1749 by: ZACHARY ECHEVERRIA Results read back by same. Troponin T.cardiac [Mass/vol ume] in Serum or Plasma by High sensitivity methodOrdered By: Fitz Deleon on 03-13-2025 Troponin T.cardiac High sensitivity method [Mass/Vol] 160 ng/L High <14 [facility] Comment on above: Critical Result(s) C alled at: 2214 by: ZACHARY NORMAN Results read back by same. Troponin T.cardiac High sensitivity method [Mass/Vol] 159 ng/L High <14 [facility] Comment on above: Critical Result(s) C alled at: 1812 by: ZACHARY PARSONS Results read back by same. Troponin T.cardiac High sensitivity method [Mass/Vol] 159 ng/L High <14 [facility] Comment on above: Critical Result(s) C alled at: 1749 by: ZACHARY ECHEVERRIA Results read back by same. Urinalysis, Completeon 03-13 EPI,TRANSITION 0-5 SEEN Normal 0-5 [facility] Comment on above: Order Comment: YINKA TER SPECIMEN Performed By: #### L 400.0001 ####[facility] [address] [place], [address] RBC 5-10 SEEN Normal 0-5 [facility] Comment on above: Order Comment: YINKA TER SPECIMEN Performed By: #### L 400.0001 ####[facility] [address] [place], [address] EPI,SQUAMOUS 10-25 SEEN Normal 5-10 [facility] Comment on above: Order Comment: YINKA TER SPECIMEN Performed By: #### L 400.0001 ####[facility] [address] [place], [address] WBC 50-100 SEEN Normal 0-5 [facility] Comment on above: Order Comment: YINKA TER SPECIMEN Performed By: #### L 400.0001 ####[facility] [address] [place], [address] BACTERIA 4+ /hpf Normal None Seen [facility] Comment on above: Order Comment: YINKA TER SPECIMEN Performed By: #### L 400.0001 ####[facility] [address] [place], [address] Mucus Ql (Urine sed) 0 SEEN Normal [facility] Comment on above: Order Comment: YINKA TER SPECIMEN Performed By: #### L 400.0001 ####[facility] [address] [place], [address] Urine Electrolytes- Randomon 03-13-2025 Chloride,URINE 24 mmol/L Normal Not Establ. [facility] Comment on above: Performed By: #### L 500.9400, L501.7400 ####[facility] [address] [place], [address] UR K 20.8 mmol/L Normal Not Establ. [facility] Comment on above: Performed By: #### L 500.9400, L501.7400 ####[facility] [address] [place], [address] UR NA < 20 Normal Not Establ. [facility] Comment on above: Performed By: #### L 500.9400, L501.7400 ####[facility] [address] [place], [address] Urine blood detectionOrdered By: Fitz Deleon on 03-13-2025 Urine Occult Blood 150 /ul High Negative [facility] Urine clarityOrdered By: Rose Deleon on 03-13-2025 Clarity (U) Cloudy Clear [facility] Urine color determinationOrd ered By: Fitz Deleon on 03-13-2025 Color (U) Yellow Yellow [facility] Urine glucose detectionOrder ed By: Fitz Deleon on 03-13-2025 Glucose Ql (U) Normal mg/dl Normal [facility] Urine leukocyte esterase det ection by dipstickOrdered By: Fitz Deleon on 03-13-2025 Leukocyte esterase Test strip Ql (U) 500 /ul High Negative [facility] Urine pHOrdered By: Fitz martinez on 03-13-2025 pH (U) 5.0 [pH] 5.0 - 8.0 [facility] Urine potassium measurement (moles/volume)Ordered By: Milton Muñoz on 03-13-2025 Potassium (U) [Moles/Vol] 20.8 mmol/L Not Establ. [facility] Urine sediment bacteria coun t by microscopy (number/high power field)Ordered By: Fitz Deleon on 03-13-2025 Bacteria LM.HPF (Urine sed) [#/Area] 4 /[HPF] None Seen [facility] Urine sodium measurement (mo les/volume)Ordered By: Milton Muñoz on 03-13-2025 Sodium (U) [Moles/Vol] mmol/L Not Establ. [facility] Urine specific gravity measu rementOrdered By: Fitz Deleon on 03-13-2025 Specific gravity (U) [Rel density] 1.025 1.002-1.030 [facility] Urine urobilinogen measureme ntOrdered By: Fitz Deleon on 03-13-2025 Urobilinogen Ql (U) Normal mg/dl Normal [facility] Urobilinogen Ql (U)Ordered B y: Fitz Deleon on 03-13-2025 Urine Urobilinogen Normal mg/dl Normal [facility] White blood cell (WBC) count Ordered By: Fitz Deleon on 03-13-2025 WBC (Bld) [#/Vol] 7.7 10*3/uL 4.4-11.0 [facility] White blood cell countOrdere d By: Fitz Deleon on 03-13-2025 Urine WBC 50-100 SEEN /hpf 0-5 [facility] White blood cell count 50-100 SEEN /hpf 0-5 [facility] aPTT Coag (PPP) [Time]Ordere d By: Fitz Deleon on 03-13-2025 aPTT Coag (Bld) [Time] 29.4 s 24.1-36.2 [facility] Anion gap in Serum or Plasma Ordered By: Onofre Claros on 03-12-2025 Anion gap [Moles/Vol] 12 mmol/L - [facility] BUN/creatinine ratioOrdered By: Onofre Claros on 03-12-2025 Urea nitrogen/Creatinine [Mass ratio] 19.4 mg/mg - [facility] Basic Metabolic Profile (BMP )on 03-12-2025 BUN/CRE 19.4 RATIO Normal 09-03 [facility] Comment on above: Order Comment: [employer]PER[employer] BRITTANY LINARES APPRENTICESHIP REPRESENTATIVE FOR HEART GROUP AT 1940 NO ANSWER BACK Performed By: #### L 503.7505, L500.2500 ####[facility] [address] [place], [address] Calcium [Mass/Vol] 8.7 mg/dL Normal 7.6-11.0 [facility] Comment on above: Order Comment: [employer] BRITT[employer]AR[employer] APPRENTICESHIP REPRESENTATIVE FOR HEART GROUP AT 1940 NO ANSWER BACK Performed By: #### L 503.7505, L500.2500 ####[facility] [address] [place], [address] Chloride [Moles/Vol] 114 mmol/L High 98-108 [facility] Comment on above: Order Comment: [employer] BRITT[employer]AR[employer] APPRENTICESHIP REPRESENTATIVE FOR HEART GROUP AT 1940 NO ANSWER BACK Performed By: #### L 503.7505, L500.2500 ####[facility] [address] [place], [address] CO2 [Moles/Vol] 16.8 mmol/L Low 21.0-32.0 [facility] Comment on above: Order Comment: [employer]ITT[employer]AR[employer] APPRENTICESHIP REPRESENTATIVE FOR HEART GROUP AT 3A1940 NO ANSWER BACK Performed By: #### L 503.7505, L500.2500 ####[facility] [address] [place], [address] Creatinine [Mass/Vol] 4.48 mg/dL High 0.70-1.20 [facility] Comment on above: Order Comment: [employer]ITT[employer] APPRENTICESHIP REPRESENTATIVE FOR HEART GROUP AT 1940 NO ANSWER BACK Performed By: #### L 503.7505, L500.2500 ####[facility] [address] [place], [address] GAP 12 Normal 5-15 [facility] Comment on above: Order Comment: [employer]ITT[employer] APPRENTICESHIP REPRESENTATIVE FOR HEART GROUP AT 1940 NO ANSWER BACK Performed By: #### L 503.7505, L500.2500 ####[facility] [address] [place], [address] GFR/1.73 sq M.predicted among non-blacks MDRD (S/P/Bld) [Vol rate/Area] 10 mL/min/{1.73_m2} Low >60 [facility] Comment on above: Order Comment: O[employer] BRITT[employer]AR[employer] APPRENTICESHIP REPRESENTATIVE FOR HEART GROUP AT 3A1940 NO ANSWER BACK Result Comment: mL/m in/1.73m2 CKD-EPI Creatinine Equation (2020) Performed By: #### L 503.7505, L500.2500 ####[facility] [address] [place], [address] Glucose [Mass/Vol] 115 mg/dL High 70-99 [facility] Comment on above: Order Comment: O[employer]ITT[employer]ARES APPRENTICESHIP REPRESENTATIVE FOR HEART GROUP AT 3A1940 NO ANSWER BACK Performed By: #### L 503.7505, L500.2500 ####[facility] [address] [place], [address] Potassium [Moles/Vol] 6.6 mmol/L Invalid Interpretation Code 3.3-5.1 [facility] Comment on above: Order Comment: [employer]ITT[employer]AR[employer] APPRENTICESHIP REPRESENTATIVE FOR HEART GROUP AT 3A1940 NO ANSWER BACK Result Comment: Crit ical Result(s) Called at: by:??Results read back bysame. Performed By: #### L 503.7505, L500.2500 ####[facility] [address] [place], [address] Sodium [Moles/Vol] 143 mmol/L Normal 133-145 [facility] Comment on above: Order Comment: [employer] APPRENTICESHIP REPRESENTATIVE FOR HEART GROUP AT 1940 NO ANSWER BACK Performed By: #### L 503.7505, L500.2500 ####[facility] [address] [place], [address] Urea nitrogen [Mass/Vol] 87 mg/dL High 4-19 [facility] Comment on above: Order Comment: [employer] APPRENTICESHIP REPRESENTATIVE FOR HEART GROUP AT 1940 NO ANSWER BACK Performed By: #### L 503.7505, L500.2500 ####[facility] [address] [place], [address] Carbon dioxide, total [Moles /volume] in Central venous bloodOrdered By: Onofre Claros on 03-12-2025 CO2 [Moles/Vol] 16.8 mmol/L Low 21.0-32.0 [facility] Cardiology Visit Reporton Cardiology Visit Report Normal [facility] Chloride assayOrdered By: Angela Claros on 03-12-2025 Chloride [Moles/Vol] 114 mmol/L High 98-108 [facility] GFR/1.73 sq M.predicted hiro g non-blacks MDRD (S/P/Bld) [Vol rate/Area]Ordered By: Onofre Claros on 03-12-2025 Estimated GFR (MDRD) Non-Af Amer 10 Low >60 [facility] Comment on above: mL/min/1.73m2 CKD-EP I Creatinine Equation (2020) Glomerular filtration rate ( GFR) estimation/1.73 sq m using serum, plasma, or whole bOrdered By: Onofre Claros on 03-12-2025 GFR/1.73 sq M.predicted among non-blacks MDRD (S/P/Bld) [Vol rate/Area] 10 mL/min/{1.73_m2} Low >60 [facility] Comment on above: mL/min/1.73m2 CKD-EP I Creatinine Equation (2020) L503.7505on 03-12-2025 proBNP > 29024 High <=900 [facility] Comment on above: Result Comment: Hear t Failure Unlikely: < 300 pg/mLHeart Failure Likely< 50 Years: > 450 pg/mL50-75 Years: > 900 pg/mL>75 Years: > 1800 pg/mL Performed By: #### L 503.7505, L500.2500 ####[facility] [address] [place], [place], [id number] Natriuretic peptide.B prohor marlen N-Terminal [Mass/Vol]Ordered By: Onofre Claros on 03-12-2025 PI-PwpT-Bzay Natriuretic Peptide II > 61037 pg/mL High <900 [facility] Comment on above: Heart Failure Unlike ly: < 300 pg/mLHeart Failure Likely< 50 Years: > 450 pg/mL50-75 Years: > 900 pg/mL>75 Years: > 1800 pg/mL Natriuretic peptide.B prohor marlen N-Terminal [Mass/volume] in Serum or PlasmaOrdered By: Onofre Claros on 03-12-2025 Natriuretic peptide.B prohormone N-Terminal [Mass/Vol] > 21066 pg/mL High <900 [facility] Comment on above: Heart Failure Unlike ly: < 300 pg/mLHeart Failure Likely< 50 Years: > 450 pg/mL50-75 Years: > 900 pg/mL>75 Years: > 1800 pg/mL Potassium (Unsp spec) [Mass/ Vol]Ordered By: Onofre Claros on 03-12-2025 Potassium [Moles/Vol] 6.6 mmol/L High 3.3-5.1 [facility] Comment on above: Critical Result(s) C alled at: by: Results read back by same. Potassium measurement (mass/ volume)Ordered By: Onofre Claros on 03-12-2025 Potassium (Unsp spec) [Mass/Vol] 6.6 mmol/L High 3.3-5.1 [facility] Comment on above: Critical Result(s) C alled at: by: Results read back by same. Serum creatinine measurement (mass/volume)Ordered By: Onofre Claros on 03-12-2025 Creatinine [Mass/Vol] 4.48 mg/dL High 0.70-1.20 [facility] Serum glucose measurement (m ass/volume)Ordered By: Onofre Claros on 03-12-2025 Glucose [Mass/Vol] 115 mg/dL High 70-99 [facility] Serum or plasma calcium ras urement (mass/volume)Ordered By: Onofre Claros on 03-12-2025 Calcium [Mass/Vol] 8.7 mg/dL 7.6-11.0 [facility] Serum or plasma urea nitroge n measurement (mass/volume)Ordered By: Onofre Claros on 03-12-2025 Urea nitrogen [Mass/Vol] 87 mg/dL High 4-19 [facility] Sodium levelOrdered By: Nima Claros on 03-12-2025 Sodium [Moles/Vol] 143 mmol/L 133-145 [facility] AVASTIN (BEVACIZUMAB) 1.25MG INTRAVITREAL INJECTION OD (RIGHT EYE)on 02-15-2025 [facility] OCT ANGIOGRAPHY OU (BOTH EYE S)on 02-15-2025 [facility] Radiology Study observation (narrative) [facility] OCT MACULA CIRRUS OU (BOTH E YES)on 02-15-2025 [facility] Radiology Study observation (narrative) [facility] Absolute lymphocyte countOrd ered By: Donal Valladareske on 01-11-2025 Lymphocytes Auto (Unsp spec) [#/Vol] 2.08 10*3/uL 0.83-4.51 [facility] Absolute neutrophil countOrd ered By: Donal Valladareske on 01-11-2025 Neutrophils (Bld) [#/Vol] 5.1 10*3/uL 2.0-7.7 [facility] Automated lymphocyte count a s percentage of total leukocytesOrdered By: Donal Will on 01-11-2025 Lymphocytes/100 WBC Auto (Unsp spec) 26.0 % 19-41 [facility] BUN/creatinine ratioOrdered By: Donal Will on 01-11-2025 Urea nitrogen/Creatinine [Mass ratio] 20.5 mg/mg High 10-20 [facility] Basic Metabolic Profile (BMP )on 01-11-2025 Anion gap [Moles/Vol] 16 mmol/L High 5-15 [facility] Comment on above: Order Comment: Order Date: 01/09/25Order Info: 0667- - BMP Performed By: #### L 500.2500, L100.0100 ####[facility] [address] [place], [address] BUN/CRE 20.5 RATIO High 10-20 [facility] Comment on above: Order Comment: Order Date: 01/09/25Order Info: 0667-1 - BMP Performed By: #### L 500.2500, L100.0100 ####[facility] [address] [place], [address] Calcium [Mass/Vol] 9.7 mg/dL Normal 7.6-11.0 [facility] Comment on above: Order Comment: Order Date: 01/09/25Order Info: 06-1 - BMP Performed By: #### L 500.2500, L100.0100 ####[facility] [address] [place], [address] Chloride [Moles/Vol] 106 mmol/L Normal 96-108 [facility] Comment on above: Order Comment: Order Date: 01/09/25Order Info: 06 - BMP Performed By: #### L 500.2500, L100.0100 ####[facility] [address] [place], [address] CO2 [Moles/Vol] 20.6 mmol/L Low 22.0-29.0 [facility] Comment on above: Order Comment: Order Date: 01/09/25Order Info: 666-11 - BMP Performed By: #### L 500.2500, L100.0100 ####[facility] [address] [place], [address] Creatinine [Mass/Vol] 1.7 mg/dL High 0.6-1.0 [facility] Comment on above: Order Comment: Order Date: 01/09/25Order Info: 666-11 - BMP Performed By: #### L 500.2500, L100.0100 ####[facility] [address] [place], [address] GFR/1.73 sq M.predicted among non-blacks MDRD (S/P/Bld) [Vol rate/Area] 30 mL/min/{1.73_m2} Low >60 [facility] Comment on above: Order Comment: Order Date: 01/09/25Order Info: 666-11 - BMP Result Comment: mL/m in/1.73m2 CKD-EPI Creatinine Equation (2020) Performed By: #### L 500.2500, L100.0100 ####[facility] [address] [place], [address] Glucose [Mass/Vol] 142 mg/dL High 70-99 [facility] Comment on above: Order Comment: Order Date: 01/09/25Order Info: 06 - BMP Performed By: #### L 500.2500, L100.0100 ####[facility] [address] [place], [address] Potassium [Moles/Vol] 4.6 mmol/L Normal 3.3-5.1 [facility] Comment on above: Order Comment: Order Date: 01/09/25Order Info: 06- - BMP Performed By: #### L 500.2500, L100.0100 ####[facility] [address] [place], [address] Sodium [Moles/Vol] 142 mmol/L Normal 133-145 [facility] Comment on above: Order Comment: Order Date: 01/09/25Order Info: 06- - BMP Performed By: #### L 500.2500, L100.0100 ####[facility] [address] [place], [address] Urea nitrogen [Mass/Vol] 36 mg/dL High 4-19 [facility] Comment on above: Order Comment: Order Date: 01/09/25Order Info: 06- - BMP Performed By: #### L 500.2500, L100.0100 ####[facility] [address] [place], [address] Basophil percentageOrdered B y: Donal Will on 01-11-2025 Basophils/100 WBC (Bld) 0.6 % 0-1 [facility] CBC W/Diff, Automatedon 12-17 Absolute Lymph 2.08 X10 3/uL Normal 0.83-4.51 [facility] Comment on above: Order Comment: Order Date: 01/09/25Order Info: 0184- - CBCD Performed By: #### L 500.2500, L100.0100 ####[facility] [address] [place], [address] Absolute Neut 5.1 X10 3/uL Normal 2.0-7.7 [facility] Comment on above: Order Comment: Order Date: 01/09/25Order Info: 0184- - CBCD Performed By: #### L 500.2500, L100.0100 ####[facility] [address] [place], [address] Basophils/100 WBC (Bld) 0.6 % Normal 0-1 [facility] Comment on above: Order Comment: Order Date: 01/09/25Order Info: 0184-1 - CBCD Performed By: #### L 500.2500, L100.0100 ####[facility] [address] [place], [address] Eosinophils/100 WBC (Bld) 2.3 % Normal 0-5 [facility] Comment on above: Order Comment: Order Date: 01/09/25Order Info: 018- - CBCD Performed By: #### L 500.2500, L100.0100 ####[facility] [address] [place], [address] Erythrocyte distribution width (RBC) [Ratio] 15.9 % High 11.6-14.6 [facility] Comment on above: Order Comment: Order Date: 01/09/25Order Info: 018- - CBCD Performed By: #### L 500.2500, L100.0100 ####[facility] [address] [place], [address] Hematocrit (Bld) [Volume fraction] 37.6 % Normal 37-47 [facility] Comment on above: Order Comment: Order Date: 01/09/25Order Info: 0184-1 - CBCD Performed By: #### L 500.2500, L100.0100 ####[facility] [address] [place], [address] Hemoglobin (Bld) [Mass/Vol] 11.4 g/dL Low 12.0-15.0 [facility] Comment on above: Order Comment: Order Date: 01/09/25Order Info: 0184-1 - CBCD Performed By: #### L 500.2500, L100.0100 ####[facility] [address] [place], [address] IG% 0.400 Normal 0.0-0.9 [facility] Comment on above: Order Comment: Order Date: 01/09/25Order Info: 0184-1 - CBCD Result Comment: IG% - Immature Granulocytes (promyelocytes, myelocytes andmetamyelocytes) > 1% indicates that a LEFT SHIFT is Present. Performed By: #### L 500.2500, L100.0100 ####[facility] [address] [place], [address] Lymphocytes/100 WBC (Bld) 26.0 % Normal 19-41 [facility] Comment on above: Order Comment: Order Date: 01/09/25Order Info: 0184- - CBCD Performed By: #### L 500.2500, L100.0100 ####[facility] [address] [place], [address] MCH (RBC) [Entitic mass] 27.9 pg Normal 27.0-32.0 [facility] Comment on above: Order Comment: Order Date: 01/09/25Order Info: 0184- - CBCD Performed By: #### L 500.2500, L100.0100 ####[facility] [address] [place], [address] MCHC (RBC) [Mass/Vol] 30.3 g/dL Low 32-36 [facility] Comment on above: Order Comment: Order Date: 01/09/25Order Info: 0184-1 - CBCD Performed By: #### L 500.2500, L100.0100 ####[facility] [address] [place], [address] MCV (RBC) [Entitic vol] 92.2 fL Normal 81-99 [facility] Comment on above: Order Comment: Order Date: 01/09/25Order Info: 0184-1 - CBCD Performed By: #### L 500.2500, L100.0100 ####[facility] [address] [place], [address] Monocytes/100 WBC (Bld) 6.9 % Normal 0-10 [facility] Comment on above: Order Comment: Order Date: 01/09/25Order Info: 0184-1 - CBCD Performed By: #### L 500.2500, L100.0100 ####[facility] [address] [place], [address] Neutrophils/100 WBC (Bld) 63.8 % Normal 47-70 [facility] Comment on above: Order Comment: Order Date: 01/09/25Order Info: 0184-1 - CBCD Performed By: #### L 500.2500, L100.0100 ####[facility] [address] [place], [address] Nucleated RBC (Bld) [#/Vol] 0 10*3/uL Normal 0-5 [facility] Comment on above: Order Comment: Order Date: 01/09/25Order Info: 0184-1 - CBCD Performed By: #### L 500.2500, L100.0100 ####[facility] [address] [place], [address] Platelet mean volume (Bld) [Entitic vol] 10.1 fL Normal 6.2-12.0 [facility] Comment on above: Order Comment: Order Date: 01/09/25Order Info: 0184-1 - CBCD Performed By: #### L 500.2500, L100.0100 ####[facility] [address] [place], [address] Platelets (Bld) [#/Vol] 314 10*3/uL Normal 150-450 [facility] Comment on above: Order Comment: Order Date: 01/09/25Order Info: 0184-1 - CBCD Performed By: #### L 500.2500, L100.0100 ####[facility] [address] [place], [address] RBC (Bld) [#/Vol] 4.08 10*6/uL Low 4.2-5.4 [facility] Comment on above: Order Comment: Order Date: 01/09/25Order Info: 0184-1 - CBCD Performed By: #### L 500.2500, L100.0100 ####[facility] [address] [place], [address] RDW SD 53.0 fl High 35.1-43.9 [facility] Comment on above: Order Comment: Order Date: 01/09/25Order Info: 0184-1 - CBCD Performed By: #### L 500.2500, L100.0100 ####[facility] [address] [place], [address] WBC (Bld) [#/Vol] 8.0 10*3/uL Normal 4.4-11.0 [facility] Comment on above: Order Comment: Order Date: 01/09/25Order Info: 0184- - CBCD Performed By: #### L 500.2500, L100.0100 ####[facility] [address] [place], [address] Carbon dioxide measurementOr dered By: Donal Will on 01-11-2025 CO2 [Moles/Vol] 20.6 mmol/L Low 22.0-29.0 [facility] Chloride measurementOrdered By: Donal Will on 01-11-2025 Chloride [Moles/Vol] 106 mmol/L 96-108 [facility] Creatinine [Moles/Vol]Ordere d By: Donal Will on 01-11-2025 Creatinine [Mass/Vol] 1.7 mg/dL High 0.6-1.0 [facility] Eosinophil percentageOrdered By: Donal Will on 01-11-2025 Eosinophils/100 WBC (Bld) 2.3 % 0-5 [facility] Erythrocyte distribution wid th ratioOrdered By: Donal Will on 01-11-2025 Erythrocyte distribution width (RBC) [Ratio] 15.9 % High 11.6-14.6 [facility] Erythrocyte distribution wid th standard deviationOrdered By: Donal Will on 01-11-2025 Erythrocyte distribution width (RBC) [Entitic vol] 53.0 fL High 35.1-43.9 [facility] Erythrocyte distribution width (RBC) [Ratio] 53.0 fl High 35.1-43.9 [facility] GFR/1.73 sq M.predicted hiro g non-blacks MDRD (S/P/Bld) [Vol rate/Area]Ordered By: Donal Will on 01-11-2025 Estimated GFR (MDRD) Non-Af Amer 30 Low >60 [facility] Comment on above: mL/min/1.73m2 CKD-EP I Creatinine Equation (2020) Glomerular filtration rate ( GFR) estimation/1.73 sq m using serum, plasma, or whole bOrdered By: Donal Will on 01-11-2025 GFR/1.73 sq M.predicted among non-blacks MDRD (S/P/Bld) [Vol rate/Area] 30 mL/min/{1.73_m2} Low >60 [facility] Comment on above: mL/min/1.73m2 CKD-EP I Creatinine Equation (2020) Hematocrit Auto (Bld) [Volum e fraction]Ordered By: Donal Will on 01-11-2025 Hematocrit (Bld) [Volume fraction] 37.6 % 37-47 [facility] Hemoglobin measurementOrdere d By: Donal Will on 01-11-2025 Hemoglobin (Bld) [Mass/Vol] 11.4 g/dL Low 12.0-15.0 [facility] Immature granulocytes/100 WB C Auto (Bld)Ordered By: Donal Will on 01-11-2025 Immature granulocytes/100 WBC (Bld) 0.400 % 0.0-0.9 [facility] Comment on above: IG% - Immature Granu locytes (promyelocytes, myelocytes and metamyelocytes) > 1% indicates that a LEFT SHIFT is Present. Lymphocytes Auto (Unsp spec) [#/Vol]Ordered By: Donal Will on 01-11-2025 Lymphocytes (Bld) [#/Vol] 2.08 10*3/uL 0.83-4.51 [facility] Lymphocytes/100 WBC Auto (Un sp spec)Ordered By: Donal Will on 01-11-2025 Lymphocytes/100 WBC (Bld) 26.0 % 19-41 [facility] MCV (mean corpuscular volume ) determinationOrdered By: Donal Will on 01-11-2025 MCV (RBC) [Entitic vol] 92.2 fL 81-99 [facility] Mean corpuscular hemoglobin (MCH) determinationOrdered By: Donal Will on 01-11-2025 MCH (RBC) [Entitic mass] 27.9 pg 27.0-32.0 [facility] Mean corpuscular hemoglobin concentration (MCHC) determinationOrdered By: Donal Will on 01-11-2025 MCHC (RBC) [Mass/Vol] 30.3 g/dL Low 32-36 [facility] Mean platelet volume determi nationOrdered By: Donal Will on 01-11-2025 Platelet mean volume (Bld) [Entitic vol] 10.1 fL 6.2-12.0 [facility] Monocyte percentageOrdered B y: Donal Will on 01-11-2025 Monocytes/100 WBC (Bld) 6.9 % 0-10 [facility] Neutrophil percentageOrdered By: Donal Will on 01-11-2025 Neutrophils/100 WBC (Bld) 63.8 % 47-70 [facility] Nucleated red blood cell per centageOrdered By: Donal Will on 01-11-2025 Nucleated RBC/100 WBC (Bld) [Ratio] 0 % 0-5 [facility] Platelet countOrdered By: Sabino Will on 01-11-2025 Platelets (Bld) [#/Vol] 314 10*3/uL 150-450 [facility] RBC Auto (Bld) [#/Vol]Ordere d By: Donal Will on 01-11-2025 RBC (Bld) [#/Vol] 4.08 10*6/uL Low 4.2-5.4 [facility] Serum glucose measurement (m ass/volume)Ordered By: Donal Will on 01-11-2025 Glucose [Mass/Vol] 142 mg/dL High 70-99 [facility] Serum or plasma anion gap de termination (moles/volume)Ordered By: Donal Will on 01-11-2025 Anion gap [Moles/Vol] 16 mmol/L High 5-15 [facility] Serum or plasma calcium ras urement (mass/volume)Ordered By: Donal Will on 01-11-2025 Calcium [Mass/Vol] 9.7 mg/dL 7.6-11.0 [facility] Serum or plasma creatinine m easurement (moles/volume)Ordered By: Donal Will on 01-11-2025 Creatinine [Moles/Vol] 1.7 mg/dL High 0.6-1.0 [facility] Serum or plasma potassium me asurementOrdered By: [facility] on 01-11-2025 Potassium [Moles/Vol] 4.6 mmol/L 3.3-5.1 [facility] Serum or plasma sodium measu rement (moles/volume)Ordered By: [facility] on 01-11-2025 Sodium [Moles/Vol] 142 mmol/L 133-145 [facility] Serum or plasma urea nitroge n measurement (mass/volume)Ordered By: Donal Will on 01-11-2025 Urea nitrogen [Mass/Vol] 36 mg/dL High 4-19 [facility] White blood cell (WBC) count Ordered By: Donal Will on 01-11-2025 WBC (Bld) [#/Vol] 8.0 10*3/uL 4.4-11.0 [facility] Echo Limited w/Contraston Echo Limited w/Contrast Normal [facility] Basic Metabolic Profile (BMP )on 12-08-2024 BUN/CRE 20.4 RATIO High 10-20 [facility] Comment on above: Performed By: #### L 500.2500 ####[facility] [address] [place], [place], [id number] CA,Total 9.0 mg/dL Normal 8.5-10.1 [facility] Comment on above: Performed By: #### L 500.2500 ####[facility] [address] [place], [address] Chloride [Moles/Vol] 113 mmol/L High 98-107 [facility] Comment on above: Performed By: #### L 500.2500 ####[facility] [address] [place], [address] CO2 [Moles/Vol] 24.0 mmol/L Normal 21.0-32.0 [facility] Comment on above: Performed By: #### L 500.2500 ####[facility] [address] [place], [address] Creatinine [Mass/Vol] 1.67 mg/dL High 0.55-1.02 [facility] Comment on above: Result Comment: The validity of the calculated GFR GFRAA in patients over70 years has not been determined. Clinical correlation isessential. Performed By: #### L 500.2500 ####[facility] [address] [place], [address] EST GFR - AA 39 mL/min Low >60 [facility] Comment on above: Result Comment: Afri can Sudanese GFR Calc Performed By: #### L 500.2500 ####[facility] [address] [place], [address] GAP 5 Normal 5-15 [facility] Comment on above: Performed By: #### L 500.2500 ####[facility] [address] [place], [address] GFR/1.73 sq M.predicted among non-blacks MDRD (S/P/Bld) [Vol rate/Area] 32 mL/min/{1.73_m2} Low >60 [facility] Comment on above: Result Comment: Non- GFR Calc Performed By: #### L 500.2500 ####[facility] [address] [place], [address] Glucose [Mass/Vol] 110 mg/dL High 74-106 [facility] Comment on above: Result Comment: Fast ing Glucose result from 100 to 125 mg/dLsuggests IMPAIRED HOMEOSTASIS per A.D.A. criteria. Performed By: #### L 500.2500 ####[facility] [address] [place], [address] Potassium [Moles/Vol] 5.0 mmol/L Normal 3.5-5.1 [facility] Comment on above: Performed By: #### L 500.2500 ####[facility] [address] [place], [address] Sodium [Moles/Vol] 142 mmol/L Normal 136-145 [facility] Comment on above: Performed By: #### L 500.2500 ####[facility] [address] [place], [address] Urea nitrogen [Mass/Vol] 34 mg/dL High 7-18 [facility] Comment on above: Performed By: #### L 500.2500 ####[facility] [address] [place], [address] Blood urea nitrogen (BUN)/cr eatinine ratioOrdered By: Joao Ramirez on 12-08-2024 Urea nitrogen/Creatinine [Mass ratio] 20.4 mg/mg High 10-20 [facility] Carbon dioxide measurementOr dered By: Joao Ramirez on 12-08-2024 CO2 [Moles/Vol] 24.0 mmol/L 21.0-32.0 [facility] Chloride measurementOrdered By: Joao Ramirez on 12-08-2024 Chloride [Moles/Vol] 113 mmol/L High 98-107 [facility] Estimated glomerular filtrat ion rate (GFR) AmericanOrdered By: Joao Ramirez on 12-08-2024 Estimated GFR (MDRD) Amer 39 mL/min Low >60 [facility] Comment on above: GFR Calc Glomerular filtration rate ( GFR) estimationOrdered By: Joao Ramirez on 12-08-2024 Estimated GFR (MDRD) Non-Af Amer 32 mL/min Low >60 [facility] Comment on above: Non- GFR Calc GFR/1.73 sq M.predicted among non-blacks MDRD (S/P/Bld) [Vol rate/Area] 32 mL/min/{1.73_m2} Low >60 [facility] Comment on above: Non- GFR Calc Glucose measurementOrdered B y: Joao Ramirez on 12-08-2024 Glucose [Mass/Vol] 110 mg/dL High 74-106 [facility] Comment on above: Fasting Glucose resu lt from 100 to 125 mg/dL suggests IMPAIRED HOMEOSTASIS per A.D.A. criteria. Potassium measurementOrdered By: Joao Ramirez on 12-08-2024 Potassium [Moles/Vol] 5.0 mmol/L 3.5-5.1 [facility] Serum anion gap measurementO rdered By: Joao Ramirez on 12-08-2024 Anion gap [Moles/Vol] 5 mmol/L 5-15 [facility] Serum or plasma calcium ras urement (mass/volume)Ordered By: Joao Ramirez on 12-08-2024 Calcium [Mass/Vol] 9.0 mg/dL 8.5-10.1 [facility] Serum or plasma creatinine m easurement (mass/volume)Ordered By: Joao Ramirez on 12-08-2024 Creatinine [Mass/Vol] 1.67 mg/dL High 0.55-1.02 [facility] Comment on above: The validity of the calculated GFR & GFRAA in patients over 70 years has not been determined. Clinical correlation is essential. Serum or plasma urea nitroge n measurement (mass/volume)Ordered By: Joao Ramirez on 12-08-2024 Urea nitrogen [Mass/Vol] 34 mg/dL High 7-18 [facility] Sodium levelOrdered By: Buddy Ramirez on 12-08-2024 Sodium [Moles/Vol] 142 mmol/L 136-145 [facility] Albumin to globulin ratioOrd ered By: Joao Ramirez on 12-01-2024 Albumin/Globulin [Mass ratio] 0.7 {ratio} Low 0.9-2.4 [facility] BNP (brain natriuretic pepti de measurement)Ordered By: Joao Ramirez on 12-01-2024 Natriuretic peptide B (Bld) [Mass/Vol] 1039.1 pg/mL High 0-100 [facility] BNP,B-Type NATRIURETIC PEPTI Ting 12-01-2024 Natriuretic peptide B (Bld) [Mass/Vol] 1039.1 pg/mL High 0-100 [facility] Comment on above: Performed By: #### L 500.4050, L100.0500, L503.6620 ####[facility] [address] [place], [address] Bilirubin, totalOrdered By: Joao Ramirez on 12-01-2024 Bilirubin [Mass/Vol] 0.40 mg/dL 0.20-1.00 [facility] Comment on above: For patients on eltr ombopag therapy, use of Dimension [place] TBIL is not recommended. Blood urea nitrogen (BUN)/cr eatinine ratioOrdered By: Joao Ramirez on 12-01-2024 Urea nitrogen/Creatinine [Mass ratio] 18.5 mg/mg 10-20 [facility] CBC-Complete Blood Cnt No Di ffon 12-01-2024 Erythrocyte distribution width (RBC) [Ratio] 15.9 % High 11.6-14.6 [facility] Comment on above: Performed By: #### L 500.4050, L100.0500, L503.6620 ####[facility] [address] [place], [address] Hematocrit (Bld) [Volume fraction] 34.7 % Low 37-47 [facility] Comment on above: Performed By: #### L 500.4050, L100.0500, L503.6620 ####[facility] [address] [place], [address] Hemoglobin (Bld) [Mass/Vol] 10.5 g/dL Low 12.0-15.0 [facility] Comment on above: Performed By: #### L 500.4050, L100.0500, L503.6620 ####[facility] [address] [place], [address] MCH (RBC) [Entitic mass] 28.3 pg Normal 27.0-32.0 [facility] Comment on above: Performed By: #### L 500.4050, L100.0500, L503.6620 ####[facility] [address] [place], [address] MCHC (RBC) [Mass/Vol] 30.3 g/dL Low 32-36 [facility] Comment on above: Performed By: #### L 500.4050, L100.0500, L503.6620 ####[facility] [address] [place], [address] MCV (RBC) [Entitic vol] 93.5 fL Normal 81-99 [facility] Comment on above: Performed By: #### L 500.4050, L100.0500, L503.6620 ####[facility] [address] [place], [address] Platelet mean volume (Bld) [Entitic vol] 8.6 fL Normal 6.2-12.0 [facility] Comment on above: Performed By: #### L 500.4050, L100.0500, L503.6620 ####[facility] [address] [place], [address] Platelets (Bld) [#/Vol] 394 10*3/uL Normal 150-450 [facility] Comment on above: Performed By: #### L 500.4050, L100.0500, L503.6620 ####[facility] [address] [place], [address] RBC (Bld) [#/Vol] 3.71 10*6/uL Low 4.2-5.4 [facility] Comment on above: Performed By: #### L 500.4050, L100.0500, L503.6620 ####[facility] [address] [place], [address] RDW SD 54.7 fl High 35.1-43.9 [facility] Comment on above: Performed By: #### L 500.4050, L100.0500, L503.6620 ####[facility] [address] [place], [address] WBC (Bld) [#/Vol] 10.8 10*3/uL Normal 4.4-11.0 [facility] Comment on above: Performed By: #### L 500.4050, L100.0500, L503.6620 ####[facility] [address] [place], [address] Carbon dioxide measurementOr dered By: Joao Ramirez on 12-01-2024 CO2 [Moles/Vol] 21.0 mmol/L 21.0-32.0 [facility] Cardiology Visit Reporton Cardiology Visit Report Normal [facility] Chloride measurementOrdered By: Joao Ramirez on 12-01-2024 Chloride [Moles/Vol] 116 mmol/L High 98-107 [facility] Comprehensive Metabolic Prof ilon 12-01-2024 Albumin [Mass/Vol] 2.6 g/dL Low 3.2-5.0 [facility] Comment on above: Performed By: #### L 500.4050, L100.0500, L503.6620 ####[facility] [address] [place], [address] Albumin/Globulin [Mass ratio] 0.7 {ratio} Low 0.9-2.4 [facility] Comment on above: Performed By: #### L 500.4050, L100.0500, L503.6620 ####[facility] [address] [place], [address] ALK P 94 U/L Normal 45-117 [facility] Comment on above: Performed By: #### L 500.4050, L100.0500, L503.6620 ####[facility] [address] [place], [address] ALT [Catalytic activity/Vol] 10 U/L Low 13-56 [facility] Comment on above: Performed By: #### L 500.4050, L100.0500, L503.6620 ####[facility] [address] [place], [address] AST [Catalytic activity/Vol] 15 U/L Normal 15-37 [facility] Comment on above: Performed By: #### L 500.4050, L100.0500, L503.6620 ####[facility] [address] [place], [address] Bilirubin [Mass/Vol] 0.40 mg/dL Normal 0.20-1.00 [facility] Comment on above: Result Comment: For patients on eltrombopag therapy, use of Dimension [place] TBIL is not recommended. Performed By: #### L 500.4050, L100.0500, L503.6620 ####[facility] [address] [place], [address] BUN/CRE 18.5 RATIO Normal 10-20 [facility] Comment on above: Performed By: #### L 500.4050, L100.0500, L503.6620 ####[facility] [address] [place], [address] CA,Total 9.1 mg/dL Normal 8.5-10.1 [facility] Comment on above: Performed By: #### L 500.4050, L100.0500, L503.6620 ####[facility] [address] [place], [address] Chloride [Moles/Vol] 116 mmol/L High 98-107 [facility] Comment on above: Performed By: #### L 500.4050, L100.0500, L503.6620 ####[facility] [address] [place], [address] CO2 [Moles/Vol] 21.0 mmol/L Normal 21.0-32.0 [facility] Comment on above: Performed By: #### L 500.4050, L100.0500, L503.6620 ####[facility] [address] [place], [address] Creatinine [Mass/Vol] 1.73 mg/dL High 0.55-1.02 [facility] Comment on above: Result Comment: The validity of the calculated GFR GFRAA in patients over70 years has not been determined. Clinical correlation isessential. Performed By: #### L 500.4050, L100.0500, L503.6620 ####[facility] [address] [place], [address] EST GFR - AA 37 mL/min Low >60 [facility] Comment on above: Result Comment: Afri can Sudanese GFR Calc Performed By: #### L 500.4050, L100.0500, L503.6620 ####[facility] [address] [place], [address] GAP 5 Normal 5-15 [facility] Comment on above: Performed By: #### L 500.4050, L100.0500, L503.6620 ####[facility] [address] [place], [address] GFR/1.73 sq M.predicted among non-blacks MDRD (S/P/Bld) [Vol rate/Area] 31 mL/min/{1.73_m2} Low >60 [facility] Comment on above: Result Comment: Non- GFR Calc Performed By: #### L 500.4050, L100.0500, L503.6620 ####[facility] [address] [place], [address] Globulin (S) [Mass/Vol] 3.8 g/dL Normal 2.2-4.2 [facility] Comment on above: Performed By: #### L 500.4050, L100.0500, L503.6620 ####[facility] [address] [place], [address] Glucose [Mass/Vol] 116 mg/dL High 74-106 [facility] Comment on above: Result Comment: Fast ing Glucose result from 100 to 125 mg/dLsuggests IMPAIRED HOMEOSTASIS per A.D.A. criteria. Performed By: #### L 500.4050, L100.0500, L503.6620 ####[facility] [address] [place], [address] Potassium [Moles/Vol] 5.7 mmol/L High 3.5-5.1 [facility] Comment on above: Performed By: #### L 500.4050, L100.0500, L503.6620 ####[facility] [address] [place], [address] Sodium [Moles/Vol] 142 mmol/L Normal 136-145 [facility] Comment on above: Performed By: #### L 500.4050, L100.0500, L503.6620 ####[facility] [address] [place], [address] T PROT 6.4 g/dL Normal 6.4-8.2 [facility] Comment on above: Performed By: #### L 500.4050, L100.0500, L503.6620 ####[facility] [address] [place], [address] Urea nitrogen [Mass/Vol] 32 mg/dL High 7-18 [facility] Comment on above: Performed By: #### L 500.4050, L100.0500, L503.6620 ####[facility] [address] [place], [address] Erythrocyte distribution wid th ratioOrdered By: Joao Ramirez on 12-01-2024 Erythrocyte distribution width (RBC) [Ratio] 15.9 % High 11.6-14.6 [facility] Erythrocyte distribution wid th standard deviationOrdered By: Joao Ramirez on 12-01-2024 Erythrocyte distribution width (RBC) [Entitic vol] 54.7 fL High 35.1-43.9 [facility] Erythrocyte distribution width (RBC) [Ratio] 54.7 fl High 35.1-43.9 [facility] Estimated glomerular filtrat ion rate (GFR) AmericanOrdered By: Joao Ramirez on 12-01-2024 Estimated GFR (MDRD) Amer 37 mL/min Low >60 [facility] Comment on above: GFR Calc Glomerular filtration rate ( GFR) estimationOrdered By: Joao Ramirez on 12-01-2024 Estimated GFR (MDRD) Non-Af Amer 31 mL/min Low >60 [facility] Comment on above: Non- GFR Calc GFR/1.73 sq M.predicted among non-blacks MDRD (S/P/Bld) [Vol rate/Area] 31 mL/min/{1.73_m2} Low >60 [facility] Comment on above: Non- GFR Calc Glucose measurementOrdered B y: Joao Ramirez on 12-01-2024 Glucose [Mass/Vol] 116 mg/dL High 74-106 [facility] Comment on above: Fasting Glucose resu lt from 100 to 125 mg/dL suggests IMPAIRED HOMEOSTASIS per A.D.A. criteria. Hematocrit Auto (Bld) [Volum e fraction]Ordered By: Joao Ramirez on 12-01-2024 Hematocrit (Bld) [Volume fraction] 34.7 % Low 37-47 [facility] Hemoglobin measurementOrdere d By: Joao Ramirez on 12-01-2024 Hemoglobin (Bld) [Mass/Vol] 10.5 g/dL Low 12.0-15.0 [facility] Laboratory - Chemistry and C hemistry - challengeOrdered By: Joao Ramirez on 12-01-2024 AST [Catalytic activity/Vol] 15 U/L 15-37 [facility] MCV (mean corpuscular volume ) determinationOrdered By: Joao Ramirez on 12-01-2024 MCV (RBC) [Entitic vol] 93.5 fL 81-99 [facility] Mean corpuscular hemoglobin (MCH) determinationOrdered By: Joao Ramirez on 12-01-2024 MCH (RBC) [Entitic mass] 28.3 pg 27.0-32.0 [facility] Mean corpuscular hemoglobin concentration (MCHC) determinationOrdered By: Joao Ramirez on 12-01-2024 MCHC (RBC) [Mass/Vol] 30.3 g/dL Low 32-36 [facility] Mean platelet volume determi nationOrdered By: Joao Ramirez on 12-01-2024 Platelet mean volume (Bld) [Entitic vol] 8.6 fL 6.2-12.0 [facility] Platelet countOrdered By: Dennise Ramirez on 12-01-2024 Platelets (Bld) [#/Vol] 394 10*3/uL 150-450 [facility] Potassium measurementOrdered By: Joao Ramirez on 12-01-2024 Potassium [Moles/Vol] 5.7 mmol/L High 3.5-5.1 [facility] RBC Auto (Bld) [#/Vol]Ordere d By: Joao Ramirez on 12-01-2024 RBC (Bld) [#/Vol] 3.71 10*6/uL Low 4.2-5.4 [facility] Serum anion gap measurementO rdered By: Joao Ramirez on 12-01-2024 Anion gap [Moles/Vol] 5 mmol/L 5-15 [facility] Serum globulin measurementOr dered By: Joao Ramirez on 12-01-2024 Globulin (S) [Mass/Vol] 3.8 g/dL 2.2-4.2 [facility] Serum or plasma alanine price otransferase (ALT) measurementOrdered By: Joao Ramirez on 12-01-2024 ALT [Catalytic activity/Vol] 10 U/L Low 13-56 [facility] Serum or plasma albumin ras urement (mass/volume)Ordered By: Joao Ramirez on 12-01-2024 Albumin [Mass/Vol] 2.6 g/dL Low 3.2-5.0 [facility] Serum or plasma alkaline destini sphatase measurementOrdered By: Joao Ramirez on 12-01-2024 ALP [Catalytic activity/Vol] 94 U/L 45-117 [facility] Serum or plasma calcium ras urement (mass/volume)Ordered By: Joao Ramirez on 12-01-2024 Calcium [Mass/Vol] 9.1 mg/dL 8.5-10.1 [facility] Serum or plasma creatinine m easurement (mass/volume)Ordered By: Joao Ramirez on 12-01-2024 Creatinine [Mass/Vol] 1.73 mg/dL High 0.55-1.02 [facility] Comment on above: The validity of the calculated GFR & GFRAA in patients over 70 years has not been determined. Clinical correlation is essential. Serum or plasma urea nitroge n measurement (mass/volume)Ordered By: Joao Ramirez on 12-01-2024 Urea nitrogen [Mass/Vol] 32 mg/dL High 7-18 [facility] Sodium levelOrdered By: Buddy bloom Ashley on 12-01-2024 Sodium [Moles/Vol] 142 mmol/L 136-145 [facility] Total proteinOrdered By: Delia Ramirez on 12-01-2024 Protein [Mass/Vol] 6.4 g/dL 6.4-8.2 [facility] White blood cell (WBC) count Ordered By: Joao Ramirez on 12-01-2024 WBC (Bld) [#/Vol] 10.8 10*3/uL 4.4-11.0 [facility] AVASTIN (BEVACIZUMAB) 1.25MG INTRAVITREAL INJECTION OD (RIGHT EYE)on 11-30-2024 [facility] OCT MACULA CIRRUS OU (BOTH E YES)on 11-30-2024 [facility] Radiology Study observation (narrative) [facility] Miscellaneous Lab Procedureo n 11-14-2024 [facility] [place] LAB TEST Normal [facility] Comment on above: Order Comment: [id number] STOOL CULTURE Result Comment: KIKE Méndez CULTURESalmonella/Shigella Screen Final ReportResult 1 NO Salmonella or Shigella recovered.Campylobacter Culture Final ReportResult 1 NO Campylobacter species isolated.E. coli Shiga Toxin EIA NEGATIVE _ TESTING PERFORMED AT [facility]. ORIGINAL REPORT ON FILE IN LAB CONTAINS ADDITIONAL TEST SITE INFORMATION. Performed By: #### L 801.1541 ####[facility] [address] [place], [address] 32-YT-Wpgzauw DOrdered By: Carlos Will on 11-10-2024 Vitamin D 25-Hydroxy 36.0 ng/mL [facility] Comment on above: Vitamin D 25(OH) Sta tus Range Deficiency <20 ng/mL (50nmol/L) Insufficiency 20 - 30 ng/mL (50 - 75 nmol/L) Sufficiency 30 - 100 ng/mL (75 - 250 nmol/L) Toxicity >100 ng/mL (>250 nmol/L) Basic Metabolic Profile (BMP )on 11-10-2024 BUN/CRE 18.7 RATIO Normal 10-20 [facility] Comment on above: Performed By: #### L 506.1000, L500.2500 ####[facility] [address] [place], [address] CA,Total 8.8 mg/dL Normal 8.5-10.1 [facility] Comment on above: Performed By: #### L 506.1000, L500.2500 ####[facility] [address] [place], [address] Chloride [Moles/Vol] 107 mmol/L Normal 98-107 [facility] Comment on above: Performed By: #### L 506.1000, L500.2500 ####[facility] [address] [place], [address] CO2 [Moles/Vol] 22.0 mmol/L Normal 21.0-32.0 [facility] Comment on above: Performed By: #### L 506.1000, L500.2500 ####[facility] [address] [place], [address] Creatinine [Mass/Vol] 3.21 mg/dL High 0.55-1.02 [facility] Comment on above: Result Comment: The validity of the calculated GFR GFRAA in patients over70 years has not been determined. Clinical correlation isessential. Performed By: #### L 506.1000, L500.2500 ####[facility] [address] [place], [address] EST GFR - AA 18 mL/min Low >60 [facility] Comment on above: Result Comment: Afri can Sudanese GFR Calc Performed By: #### L 506.1000, L500.2500 ####[facility] [address] [place], [address] GAP 9 Normal 5-15 [facility] Comment on above: Performed By: #### L 506.1000, L500.2500 ####[facility] [address] [place], [address] GFR/1.73 sq M.predicted among non-blacks MDRD (S/P/Bld) [Vol rate/Area] 15 mL/min/{1.73_m2} Low >60 [facility] Comment on above: Result Comment: Non- GFR Calc Performed By: #### L 506.1000, L500.2500 ####[facility] [address] [place], [address] Glucose [Mass/Vol] 165 mg/dL High 74-106 [facility] Comment on above: Result Comment: Fast ing Glucose result greater than or equal to 126 mg/dLsuggests DIABETES MELLITUS per A.D.A. criteria. Performed By: #### L 506.1000, L500.2500 ####[facility] [address] [place], [address] Potassium [Moles/Vol] 3.6 mmol/L Normal 3.5-5.1 [facility] Comment on above: Performed By: #### L 506.1000, L500.2500 ####[facility] [address] [place], [address] Sodium [Moles/Vol] 137 mmol/L Normal 136-145 [facility] Comment on above: Performed By: #### L 506.1000, L500.2500 ####[facility] [address] [place], [address] Urea nitrogen [Mass/Vol] 60 mg/dL High 7-18 [facility] Comment on above: Performed By: #### L 506.1000, L500.2500 ####[facility] [address] [place], [address] Blood urea nitrogen (BUN)/cr eatinine ratioOrdered By: Donal Will on 11-10-2024 Urea nitrogen/Creatinine [Mass ratio] 18.7 mg/mg 10-20 [facility] Carbon dioxide measurementOr dered By: Donal Will on 11-10-2024 CO2 [Moles/Vol] 22.0 mmol/L 21.0-32.0 [facility] Chloride measurementOrdered By: Donal Will on 11-10-2024 Chloride [Moles/Vol] 107 mmol/L 98-107 [facility] Estimated glomerular filtrat ion rate (GFR) AmericanOrdered By: Donal Will on 11-10-2024 Estimated GFR (MDRD) Amer 18 mL/min Low >60 [facility] Comment on above: GFR Calc Glomerular filtration rate ( GFR) estimationOrdered By: Donal Will on 11-10-2024 Estimated GFR (MDRD) Non-Af Amer 15 mL/min Low >60 [facility] Comment on above: Non- GFR Calc Glucose measurementOrdered B y: Donal Will on 11-10-2024 Glucose [Mass/Vol] 165 mg/dL High 74-106 [facility] Comment on above: Fasting Glucose resu lt greater than or equal to 126 mg/dL suggests DIABETES MELLITUS per A.D.A. criteria. Potassium measurementOrdered By: Donal Will on 11-10-2024 Potassium [Moles/Vol] 3.6 mmol/L 3.5-5.1 [facility] Serum anion gap measurementO rdered By: Donal Will on 11-10-2024 Anion gap [Moles/Vol] 9 mmol/L 5-15 [facility] Serum or plasma calcium ras urement (mass/volume)Ordered By: Donal Will on 11-10-2024 Calcium [Mass/Vol] 8.8 mg/dL 8.5-10.1 [facility] Serum or plasma creatinine m easurement (mass/volume)Ordered By: Donal Will on 11-10-2024 Creatinine [Mass/Vol] 3.21 mg/dL High 0.55-1.02 [facility] Comment on above: The validity of the calculated GFR & GFRAA in patients over 70 years has not been determined. Clinical correlation is essential. Serum or plasma urea nitroge n measurement (mass/volume)Ordered By: Donal Will on 11-10-2024 Urea nitrogen [Mass/Vol] 60 mg/dL High - [facility] Sodium levelOrdered By: Alka Will on 11-10-2024 Sodium [Moles/Vol] 137 mmol/L 136-145 [facility] Vitamin D,25 Hydroxyon 11-10 Vitamin D 25-OH 36.0 ng/mL Normal [facility] Comment on above: Result Comment: Sadaf min D 25(OH) Status Range Deficiency <20 ng/mL (50nmol/L) Insufficiency 20 - 30 ng/mL (50 - 75 nmol/L) Sufficiency 30 - 100 ng/mL (75 - 250 nmol/L) Toxicity >100 ng/mL (>250 nmol/L) Performed By: #### L 506.1000, L500.2500 ####[facility] [address] [place], [address] Basic Metabolic Profile (BMP )on 11-06-2024 BUN/CRE 22.0 RATIO High 10- [facility] Comment on above: Performed By: #### L 500.2500 ####[facility] [address] [place], [address] CA,Total 8.7 mg/dL Normal 8.5-10.1 [facility] Comment on above: Performed By: #### L 500.2500 ####[facility] [address] [place], [address] Chloride [Moles/Vol] 105 mmol/L Normal 98-107 [facility] Comment on above: Performed By: #### L 500.2500 ####[facility] [address] [place], [address] CO2 [Moles/Vol] 25.0 mmol/L Normal 21.0-32.0 [facility] Comment on above: Performed By: #### L 500.2500 ####[facility] [address] [place], [address] Creatinine [Mass/Vol] 2.09 mg/dL High 0.55-1.02 [facility] Comment on above: Result Comment: The validity of the calculated GFR GFRAA in patients over70 years has not been determined. Clinical correlation isessential. Performed By: #### L 500.2500 ####[facility] [address] [place], [address] EST GFR - AA 30 mL/min Low >60 [facility] Comment on above: Result Comment: Afri can Sudanese GFR Calc Performed By: #### L 500.2500 ####[facility] [address] [place], [address] GAP 9 Normal 5-15 [facility] Comment on above: Performed By: #### L 500.2500 ####[facility] [address] [place], [address] GFR/1.73 sq M.predicted among non-blacks MDRD (S/P/Bld) [Vol rate/Area] 25 mL/min/{1.73_m2} Low >60 [facility] Comment on above: Result Comment: Non- GFR Calc Performed By: #### L 500.2500 ####[facility] [address] [place], [address] Glucose [Mass/Vol] 134 mg/dL High 74-106 [facility] Comment on above: Result Comment: Fast ing Glucose result greater than or equal to 126 mg/dLsuggests DIABETES MELLITUS per A.D.A. criteria. Performed By: #### L 500.2500 ####[facility] [address] [place], [address] Potassium [Moles/Vol] 3.5 mmol/L Normal 3.5-5.1 [facility] Comment on above: Performed By: #### L 500.2500 ####[facility] [address] [place], [address] Sodium [Moles/Vol] 139 mmol/L Normal 136-145 [facility] Comment on above: Performed By: #### L 500.2500 ####[facility] [address] [place], [address] Urea nitrogen [Mass/Vol] 46 mg/dL High 7-18 [facility] Comment on above: Performed By: #### L 500.2500 ####[facility] [address] [place], [address] BUN Normal 7-18 [facility] Comment on above: Result Comment: Canc elled via OM: Order cancelled - Patient discharged Performed By: #### L 500.2500 ####[facility] [address] [place], [address] BUN/CRE Normal 10-20 [facility] Comment on above: Result Comment: Canc elled via OM: Order cancelled - Patient discharged Performed By: #### L 500.2500 ####[facility] [address] [place], [address] CA,Total Normal 8.5-10.1 [facility] Comment on above: Result Comment: Canc elled via OM: Order cancelled - Patient discharged Performed By: #### L 500.2500 ####[facility] [address] [place], [address] CL Normal 98-107 [facility] Comment on above: Result Comment: Canc elled via OM: Order cancelled - Patient discharged Performed By: #### L 500.2500 ####[facility] [address] [place], [address] CO2 Normal 21.0-32.0 [facility] Comment on above: Result Comment: Canc elled via OM: Order cancelled - Patient discharged Performed By: #### L 500.2500 ####[facility] [address] [place], [address] CREAT,SERUM Normal 0.55-1.02 [facility] Comment on above: Result Comment: Canc elled via OM: Order cancelled - Patient discharged Performed By: #### L 500.2500 ####[facility] [address] [place], [address] EST GFR Normal >60 [facility] Comment on above: Result Comment: Canc elled via OM: Order cancelled - Patient discharged Performed By: #### L 500.2500 ####[facility] [address] [place], [address] EST GFR - AA Normal >60 [facility] Comment on above: Result Comment: Canc elled via OM: Order cancelled - Patient discharged Performed By: #### L 500.2500 ####[facility] [address] [place], [address] GAP Normal 5-15 [facility] Comment on above: Result Comment: Canc elled via OM: Order cancelled - Patient discharged Performed By: #### L 500.2500 ####[facility] [address] [place], [address] GLU Normal 74-106 [facility] Comment on above: Result Comment: Canc elled via OM: Order cancelled - Patient discharged Performed By: #### L 500.2500 ####[facility] [address] [place], [address] Potassium Normal 3.5-5.1 [facility] Comment on above: Result Comment: Canc elled via OM: Order cancelled - Patient discharged Performed By: #### L 500.2500 ####[facility] [address] [place], [place], [id number] Basic Metabolic Profile (BMP) Normal 136-145 [facility] Comment on above: Result Comment: Canc elled via OM: Order cancelled - Patient discharged Performed By: #### L 500.2500 ####[facility] [address] [place], [place], [id number] Blood urea nitrogen (BUN)/cr eatinine ratioOrdered By: Seth Garnica on 11-06-2024 Urea nitrogen/Creatinine [Mass ratio] 22.0 mg/mg High 10-20 [facility] Carbon dioxide measurementOr dered By: Seth Garnica on 11-06-2024 CO2 [Moles/Vol] 25.0 mmol/L 21.0-32.0 [facility] Chloride measurementOrdered By: Seth Garnica on 11-06-2024 Chloride [Moles/Vol] 105 mmol/L 98-107 [facility] Estimated glomerular filtrat ion rate (GFR) AmericanOrdered By: Seth Garnica on 11-06-2024 Estimated GFR (MDRD) Amer 30 mL/min Low >60 [facility] Comment on above: GFR Calc Glomerular filtration rate ( GFR) estimationOrdered By: Seth Garnica on 11-06-2024 Estimated GFR (MDRD) Non-Af Amer 25 mL/min Low >60 [facility] Comment on above: Non- GFR Calc Glucose measurementOrdered B y: Seth Garnica on 11-06-2024 Glucose [Mass/Vol] 134 mg/dL High 74-106 [facility] Comment on above: Fasting Glucose resu lt greater than or equal to 126 mg/dL suggests DIABETES MELLITUS per A.D.A. criteria. Miscellaneous procedureOrder ed By: Seth Garnica on 11-06-2024 Miscellaneous Test See comment [facility] Comment on above: STOOL CULTURESalmone lla/Shigella Screen Final ReportResult 1 NO Salmonella or Shigella recovered.Campylobacter Culture Final ReportResult 1 NO Campylobacter species isolated.E. coli Shiga Toxin EIA NEGATIVE _ TESTING PERFORMED AT [facility]. ORIGINAL REPORT ON FILE IN LAB CONTAINS ADDITIONAL TEST SITE INFORMATION. Potassium measurementOrdered By: Seth Garnica on 11-06-2024 Potassium [Moles/Vol] 3.5 mmol/L 3.5-5.1 [facility] Serum anion gap measurementO rdered By: Seth Garnica on 11-06-2024 Anion gap [Moles/Vol] 9 mmol/L 5-15 [facility] Serum or plasma calcium ras urement (mass/volume)Ordered By: Seth Garnica on 11-06-2024 Calcium [Mass/Vol] 8.7 mg/dL 8.5-10.1 [facility] Serum or plasma creatinine m easurement (mass/volume)Ordered By: Seth Garnica on 11-06-2024 Creatinine [Mass/Vol] 2.09 mg/dL High 0.55-1.02 [facility] Comment on above: The validity of the calculated GFR & GFRAA in patients over 70 years has not been determined. Clinical correlation is essential. Serum or plasma urea nitroge n measurement (mass/volume)Ordered By: Seth Garnica on 11-06-2024 Urea nitrogen [Mass/Vol] 46 mg/dL High 7- [facility] Sodium levelOrdered By: Sergo Garnica on 11-06-2024 Sodium [Moles/Vol] 139 mmol/L 136-145 [facility] Basic Metabolic Profile (BMP )on 11-05-2024 BUN Normal - [facility] Comment on above: Result Comment: Canc elled via OM: Order cancelled - Patient discharged Performed By: #### L 500.2500 ####[facility] [address] [place], [address] BUN/CRE Normal 10-20 [facility] Comment on above: Result Comment: Canc elled via OM: Order cancelled - Patient discharged Performed By: #### L 500.2500 ####[facility] [address] [place], [address] CA,Total Normal 8.5-10.1 [facility] Comment on above: Result Comment: Canc elled via OM: Order cancelled - Patient discharged Performed By: #### L 500.2500 ####[facility] [address] [place], [address] CL Normal 98-107 [facility] Comment on above: Result Comment: Canc elled via OM: Order cancelled - Patient discharged Performed By: #### L 500.2500 ####[facility] [address] [place], [address] CO2 Normal 21.0-32.0 [facility] Comment on above: Result Comment: Canc elled via OM: Order cancelled - Patient discharged Performed By: #### L 500.2500 ####[facility] [address] [place], [address] CREAT,SERUM Normal 0.55-1.02 [facility] Comment on above: Result Comment: Canc elled via OM: Order cancelled - Patient discharged Performed By: #### L 500.2500 ####[facility] [address] [place], [address] EST GFR Normal >60 [facility] Comment on above: Result Comment: Canc elled via OM: Order cancelled - Patient discharged Performed By: #### L 500.2500 ####[facility] [address] [place], [address] EST GFR - AA Normal >60 [facility] Comment on above: Result Comment: Canc elled via OM: Order cancelled - Patient discharged Performed By: #### L 500.2500 ####[facility] [address] [place], [address] GAP Normal 5-15 [facility] Comment on above: Result Comment: Canc elled via OM: Order cancelled - Patient discharged Performed By: #### L 500.2500 ####[facility] [address] [place], [address] GLU Normal 74-106 [facility] Comment on above: Result Comment: Canc elled via OM: Order cancelled - Patient discharged Performed By: #### L 500.2500 ####[facility] [address] [place], [address] Potassium Normal 3.5-5.1 [facility] Comment on above: Result Comment: Canc elled via OM: Order cancelled - Patient discharged Performed By: #### L 500.2500 ####[facility] [address] [place], [address] Basic Metabolic Profile (BMP) Normal 136-145 [facility] Comment on above: Result Comment: Canc elled via OM: Order cancelled - Patient discharged Performed By: #### L 500.2500 ####[facility] [address] [place], [address] Basic Metabolic Profile (BMP )on 11-04-2024 BUN Normal 7-18 [facility] Comment on above: Result Comment: Canc elled via OM: Order cancelled - Patient discharged Performed By: #### L 500.2500 ####[facility] [address] [place], [address] BUN/CRE Normal 10-20 [facility] Comment on above: Result Comment: Canc elled via OM: Order cancelled - Patient discharged Performed By: #### L 500.2500 ####[facility] [address] [place], [address] CA,Total Normal 8.5-10.1 [facility] Comment on above: Result Comment: Canc elled via OM: Order cancelled - Patient discharged Performed By: #### L 500.2500 ####[facility] [address] [place], [address] CL Normal 98-107 [facility] Comment on above: Result Comment: Canc elled via OM: Order cancelled - Patient discharged Performed By: #### L 500.2500 ####[facility] [address] [place], [address] CO2 Normal 21.0-32.0 [facility] Comment on above: Result Comment: Canc elled via OM: Order cancelled - Patient discharged Performed By: #### L 500.2500 ####[facility] [address] [place], [address] CREAT,SERUM Normal 0.55-1.02 [facility] Comment on above: Result Comment: Canc elled via OM: Order cancelled - Patient discharged Performed By: #### L 500.2500 ####[facility] [address] [place], [address] EST GFR Normal >60 [facility] Comment on above: Result Comment: Canc elled via OM: Order cancelled - Patient discharged Performed By: #### L 500.2500 ####[facility] [address] [place], [address] EST GFR - AA Normal >60 [facility] Comment on above: Result Comment: Canc elled via OM: Order cancelled - Patient discharged Performed By: #### L 500.2500 ####[facility] [address] [place], [address] GAP Normal 5-15 [facility] Comment on above: Result Comment: Canc elled via OM: Order cancelled - Patient discharged Performed By: #### L 500.2500 ####[facility] [address] [place], [address] GLU Normal 74-106 [facility] Comment on above: Result Comment: Canc elled via OM: Order cancelled - Patient discharged Performed By: #### L 500.2500 ####[facility] [address] [place], [address] Potassium Normal 3.5-5.1 [facility] Comment on above: Result Comment: Canc elled via OM: Order cancelled - Patient discharged Performed By: #### L 500.2500 ####[facility] [address] [place], [address] Basic Metabolic Profile (BMP) Normal 136-145 [facility] Comment on above: Result Comment: Canc elled via OM: Order cancelled - Patient discharged Performed By: #### L 500.2500 ####[facility] [address] [place], [address] Basic Metabolic Profile (BMP )on 11-03-2024 BUN Normal 7-18 [facility] Comment on above: Result Comment: Canc elled via OM: Order cancelled - Patient discharged Performed By: #### L 500.2500 ####[facility] [address] [place], [address] BUN/CRE Normal 10-20 [facility] Comment on above: Result Comment: Canc elled via OM: Order cancelled - Patient discharged Performed By: #### L 500.2500 ####[facility] [address] [place], [address] CA,Total Normal 8.5-10.1 [facility] Comment on above: Result Comment: Canc elled via OM: Order cancelled - Patient discharged Performed By: #### L 500.2500 ####[facility] [address] [place], [address] CL Normal 98-107 [facility] Comment on above: Result Comment: Canc elled via OM: Order cancelled - Patient discharged Performed By: #### L 500.2500 ####[facility] [address] [place], [address] CO2 Normal 21.0-32.0 [facility] Comment on above: Result Comment: Canc elled via OM: Order cancelled - Patient discharged Performed By: #### L 500.2500 ####[facility] [address] [place], [address] CREAT,SERUM Normal 0.55-1.02 [facility] Comment on above: Result Comment: Canc elled via OM: Order cancelled - Patient discharged Performed By: #### L 500.2500 ####[facility] [address] [place], [address] EST GFR Normal >60 [facility] Comment on above: Result Comment: Canc elled via OM: Order cancelled - Patient discharged Performed By: #### L 500.2500 ####[facility] [address] [place], [address] EST GFR - AA Normal >60 [facility] Comment on above: Result Comment: Canc elled via OM: Order cancelled - Patient discharged Performed By: #### L 500.2500 ####[facility] [address] [place], [address] GAP Normal 5-15 [facility] Comment on above: Result Comment: Canc elled via OM: Order cancelled - Patient discharged Performed By: #### L 500.2500 ####[facility] [address] [place], [address] GLU Normal 74-106 [facility] Comment on above: Result Comment: Canc elled via OM: Order cancelled - Patient discharged Performed By: #### L 500.2500 ####[facility] [address] [place], [address] Potassium Normal 3.5-5.1 [facility] Comment on above: Result Comment: Canc elled via OM: Order cancelled - Patient discharged Performed By: #### L 500.2500 ####[facility] [address] [place], [address] Basic Metabolic Profile (BMP) Normal 136-145 [facility] Comment on above: Result Comment: Canc elled via OM: Order cancelled - Patient discharged Performed By: #### L 500.2500 ####[facility] [address] [place], [address] Basic Metabolic Profile (BMP )on 11-02-2024 BUN/CRE 19.2 RATIO Normal 10-20 [facility] Comment on above: Performed By: #### L 500.2500 ####[facility] [address] [place], [address] CA,Total 8.6 mg/dL Normal 8.5-10.1 [facility] Comment on above: Performed By: #### L 500.2500 ####[facility] [address] [place], [address] Chloride [Moles/Vol] 107 mmol/L Normal 98-107 [facility] Comment on above: Performed By: #### L 500.2500 ####[facility] [address] [place], [address] CO2 [Moles/Vol] 29.0 mmol/L Normal 21.0-32.0 [facility] Comment on above: Performed By: #### L 500.2500 ####[facility] [address] [place], [address] Creatinine [Mass/Vol] 1.72 mg/dL High 0.55-1.02 [facility] Comment on above: Result Comment: The validity of the calculated GFR GFRAA in patients over70 years has not been determined. Clinical correlation isessential. Performed By: #### L 500.2500 ####[facility] [address] [place], [address] ECRCL 32.32 ml/min Normal [facility] Comment on above: Performed By: #### L 500.2500 ####[facility] [address] [place], [address] EST GFR - AA 37 mL/min Low >60 [facility] Comment on above: Result Comment: Afri can Sudanese GFR Calc Performed By: #### L 500.2500 ####[facility] [address] [place], [address] GAP 4 Low 5-15 [facility] Comment on above: Performed By: #### L 500.2500 ####[facility] [address] [place], [address] GFR/1.73 sq M.predicted among non-blacks MDRD (S/P/Bld) [Vol rate/Area] 31 mL/min/{1.73_m2} Low >60 [facility] Comment on above: Result Comment: Non- GFR Calc Performed By: #### L 500.2500 ####[facility] [address] [place], [address] Glucose [Mass/Vol] 111 mg/dL High 74-106 [facility] Comment on above: Result Comment: Fast ing Glucose result from 100 to 125 mg/dLsuggests IMPAIRED HOMEOSTASIS per A.D.A. criteria. Performed By: #### L 500.2500 ####[facility] [address] [place], [address] Potassium [Moles/Vol] 3.9 mmol/L Normal 3.5-5.1 [facility] Comment on above: Performed By: #### L 500.2500 ####[facility] [address] [place], [address] Sodium [Moles/Vol] 140 mmol/L Normal 136-145 [facility] Comment on above: Performed By: #### L 500.2500 ####[facility] [address] [place], [address] Urea nitrogen [Mass/Vol] 33 mg/dL High 7-18 [facility] Comment on above: Performed By: #### L 500.2500 ####[facility] [address] [place], [address] Bedside Glucoseon 11-02-2024 FINGERSTICK GLU 142 mg/dL High 74-106 [facility] Comment on above: Result Comment: RONNIE GEMENT OF PATIENT CARE PER NURSING PROTOCOL Performed By: #### L 501.080 ####[facility] [address] [place], [address] FINGERSTICK GLU 99 mg/dL Normal 74-106 [facility] Comment on above: Result Comment: RONNIE GEMENT OF PATIENT CARE PER NURSING PROTOCOL Performed By: #### L 501.080 ####[facility] [address] [place], [address] Blood urea nitrogen (BUN)/cr eatinine ratioOrdered By: Seth Garnica on 11-02-2024 Urea nitrogen/Creatinine [Mass ratio] 19.2 mg/mg 10-20 [facility] CBC-Complete Blood Cnt No Di ffon 11-02-2024 Erythrocyte distribution width (RBC) [Ratio] 15.5 % High 11.6-14.6 [facility] Comment on above: Performed By: #### L 100.0500 ####[facility] [address] [place], [address] Hematocrit (Bld) [Volume fraction] 31.8 % Low 37-47 [facility] Comment on above: Performed By: #### L 100.0500 ####[facility] [address] [place], [address] Hemoglobin (Bld) [Mass/Vol] 10.1 g/dL Low 12.0-15.0 [facility] Comment on above: Performed By: #### L 100.0500 ####[facility] [address] [place], [address] MCH (RBC) [Entitic mass] 29.8 pg Normal 27.0-32.0 [facility] Comment on above: Performed By: #### L 100.0500 ####[facility] [address] [place], [address] MCHC (RBC) [Mass/Vol] 31.8 g/dL Low 32-36 [facility] Comment on above: Performed By: #### L 100.0500 ####[facility] [address] [place], [address] MCV (RBC) [Entitic vol] 93.8 fL Normal 81-99 [facility] Comment on above: Performed By: #### L 100.0500 ####[facility] [address] [place], [address] Platelet mean volume (Bld) [Entitic vol] 9.1 fL Normal 6.2-12.0 [facility] Comment on above: Performed By: #### L 100.0500 ####[facility] [address] [place], [address] Platelets (Bld) [#/Vol] 244 10*3/uL Normal 150-450 [facility] Comment on above: Performed By: #### L 100.0500 ####[facility] [address] [place], [address] RBC (Bld) [#/Vol] 3.39 10*6/uL Low 4.2-5.4 [facility] Comment on above: Performed By: #### L 100.0500 ####[facility] [address] [place], [address] RDW SD 50.3 fl High 35.1-43.9 [facility] Comment on above: Performed By: #### L 100.0500 ####[facility] [address] [place], [address] WBC (Bld) [#/Vol] 7.7 10*3/uL Normal 4.4-11.0 [facility] Comment on above: Performed By: #### L 100.0500 ####[facility] [address] [place], [address] Carbon dioxide measurementOr dered By: Seth Garnica on 11-02-2024 CO2 [Moles/Vol] 29.0 mmol/L 21.0-32.0 [facility] Chest 1 View (Portable)on Chest 1 View (Portable) Normal [facility] Chloride measurementOrdered By: Seth Garnica on 11-02-2024 Chloride [Moles/Vol] 107 mmol/L 98-107 [facility] Discharge Instructionon 10-15 Discharge Instruction Normal [facility] Erythrocyte distribution wid th ratioOrdered By: Seth Garnica on 11-02-2024 Erythrocyte distribution width (RBC) [Ratio] 15.5 % High 11.6-14.6 [facility] Erythrocyte distribution wid th standard deviationOrdered By: Seth Garnica on 11-02-2024 Erythrocyte distribution width (RBC) [Entitic vol] 50.3 fL High 35.1-43.9 [facility] Estimated glomerular filtrat ion rate (GFR) AmericanOrdered By: Seth Garnica on 11-02-2024 Estimated GFR (MDRD) Amer 37 mL/min Low >60 [facility] Comment on above: GFR Calc Estimation of creatinine mp aranceOrdered By: Seth Garnica on 11-02-2024 Estimated Creatinine Clearance Calc 32.32 ml/min [facility] Glomerular filtration rate ( GFR) estimationOrdered By: Seth Garnica on 11-02-2024 Estimated GFR (MDRD) Non-Af Amer 31 mL/min Low >60 [facility] Comment on above: Non- GFR Calc Glucose measurementOrdered B y: Seth Garnica on 11-02-2024 Glucose [Mass/Vol] 111 mg/dL High 74-106 [facility] Comment on above: Fasting Glucose resu lt from 100 to 125 mg/dL suggests IMPAIRED HOMEOSTASIS per A.D.A. criteria. Glucose measurement at bedsi deOrdered By: Seht Garnica on 11-02-2024 Bedside Glucose (Misc Panel) 142 mg/dL High 74-106 [facility] Comment on above: MANAGEMENT OF PATIEN T CARE PER NURSING PROTOCOL Hematocrit Auto (Bld) [Volum e fraction]Ordered By: Seth Garnica on 11-02-2024 Hematocrit (Bld) [Volume fraction] 31.8 % Low 37-47 [facility] Hemoglobin measurementOrdere d By: Seth Garnica on 11-02-2024 Hemoglobin (Bld) [Mass/Vol] 10.1 g/dL Low 12.0-15.0 [facility] MCV (mean corpuscular volume ) determinationOrdered By: Seth Garnica on 11-02-2024 MCV (RBC) [Entitic vol] 93.8 fL 81-99 [facility] Mean corpuscular hemoglobin (MCH) determinationOrdered By: Seth Granica on 11-02-2024 MCH (RBC) [Entitic mass] 29.8 pg 27.0-32.0 [facility] Mean corpuscular hemoglobin concentration (MCHC) determinationOrdered By: Seth Garnica on 11-02-2024 MCHC (RBC) [Mass/Vol] 31.8 g/dL Low 32-36 [facility] Mean platelet volume determi nationOrdered By: Seth Garnica on 11-02-2024 Platelet mean volume (Bld) [Entitic vol] 9.1 fL 6.2-12.0 [facility] Platelet countOrdered By: Gabino Garnica on 11-02-2024 Platelets (Bld) [#/Vol] 244 10*3/uL 150-450 [facility] Potassium measurementOrdered By: Seth Garnica on 11-02-2024 Potassium [Moles/Vol] 3.9 mmol/L 3.5-5.1 [facility] RBC Auto (Bld) [#/Vol]Ordere d By: Seth Garnica on 11-02-2024 RBC (Bld) [#/Vol] 3.39 10*6/uL Low 4.2-5.4 [facility] Serum anion gap measurementO rdered By: Seth Garnica on 11-02-2024 Anion gap [Moles/Vol] 4 mmol/L Low 5-15 [facility] Serum or plasma calcium ras urement (mass/volume)Ordered By: Seth Garniac on 11-02-2024 Calcium [Mass/Vol] 8.6 mg/dL 8.5-10.1 [facility] Serum or plasma creatinine m easurement (mass/volume)Ordered By: Seth Garnica on 11-02-2024 Creatinine [Mass/Vol] 1.72 mg/dL High 0.55-1.02 [facility] Comment on above: The validity of the calculated GFR & GFRAA in patients over 70 years has not been determined. Clinical correlation is essential. Serum or plasma urea nitroge n measurement (mass/volume)Ordered By: Seth Garnica on 11-02-2024 Urea nitrogen [Mass/Vol] 33 mg/dL High 7-18 [facility] Sodium levelOrdered By: Sergo Garnica on 11-02-2024 Sodium [Moles/Vol] 140 mmol/L 136-145 [facility] White blood cell (WBC) count Ordered By: Seth Garnica on 11-02-2024 WBC (Bld) [#/Vol] 7.7 10*3/uL 4.4-11.0 [facility] Basic Metabolic Profile (BMP )on 11-01-2024 BUN/CRE 19.3 RATIO Normal 10-20 [facility] Comment on above: Performed By: #### L 500.2500 ####[facility] [address] [place], [place], [id number] [place],Total 8.7 mg/dL Normal 8.5-10.1 [facility] Comment on above: Performed By: #### L 500.2500 ####[facility] [address] [place], [address] Chloride [Moles/Vol] 111 mmol/L High 98-107 [facility] Comment on above: Performed By: #### L 500.2500 ####[facility] [address] [place], [address] CO2 [Moles/Vol] 28.0 mmol/L Normal 21.0-32.0 [facility] Comment on above: Performed By: #### L 500.2500 ####[facility] [address] [place], [address] Creatinine [Mass/Vol] 1.50 mg/dL High 0.55-1.02 [facility] Comment on above: Result Comment: The validity of the calculated GFR GFRAA in patients over70 years has not been determined. Clinical correlation isessential. Performed By: #### L 500.2500 ####[facility] [address] [place], [address] ECRCL 37.26 ml/min Normal [facility] Comment on above: Performed By: #### L 500.2500 ####[facility] [address] [place], [address] EST GFR - AA 44 mL/min Low >60 [facility] Comment on above: Result Comment: Afri can Sudanese GFR Calc Performed By: #### L 500.2500 ####[facility] [address] [place], [address] GAP 5 Normal 5-15 [facility] Comment on above: Performed By: #### L 500.2500 ####[facility] [address] [place], [address] GFR/1.73 sq M.predicted among non-blacks MDRD (S/P/Bld) [Vol rate/Area] 36 mL/min/{1.73_m2} Low >60 [facility] Comment on above: Result Comment: Non- GFR Calc Performed By: #### L 500.2500 ####[facility] [address] [place], [address] Glucose [Mass/Vol] 114 mg/dL High 74-106 [facility] Comment on above: Result Comment: Fast ing Glucose result from 100 to 125 mg/dLsuggests IMPAIRED HOMEOSTASIS per A.D.A. criteria. Performed By: #### L 500.2500 ####[facility] [address] [place], [address] Potassium [Moles/Vol] 4.3 mmol/L Normal 3.5-5.1 [facility] Comment on above: Performed By: #### L 500.2500 ####[facility] [address] [place], [address] Sodium [Moles/Vol] 144 mmol/L Normal 136-145 [facility] Comment on above: Performed By: #### L 500.2500 ####[facility] [address] [place], [address] Urea nitrogen [Mass/Vol] 29 mg/dL High 7-18 [facility] Comment on above: Performed By: #### L 500.2500 ####[facility] [address] [place], [address] Bedside Glucoseon 11-01-2024 FINGERSTICK GLU 143 mg/dL High 74-106 [facility] Comment on above: Result Comment: RONNIE GEMENT OF PATIENT CARE PER NURSING PROTOCOL Performed By: #### L 501.080 ####[facility] [address] [place], [address] FINGERSTICK GLU 105 mg/dL Normal 74-106 [facility] Comment on above: Result Comment: RONNIE GEMENT OF PATIENT CARE PER NURSING PROTOCOL Performed By: #### L 501.080 ####[facility] [address] [place], [address] FINGERSTICK GLU 175 mg/dL High 74-106 [facility] Comment on above: Result Comment: RONNIE GEMENT OF PATIENT CARE PER NURSING PROTOCOL Performed By: #### L 501.080 ####[facility] [address] [place], [address] FINGERSTICK GLU 113 mg/dL High 74-106 [facility] Comment on above: Result Comment: RONNIE GEMENT OF PATIENT CARE PER NURSING PROTOCOL Performed By: #### L 501.080 ####[facility] [address] [place], [address] Absolute neutrophil countOrd ered By: Aparna Mabry on 10-31-2024 Neutrophils (Bld) [#/Vol] 6.8 10*3/uL 2.0-7.7 [facility] Albumin to globulin ratioOrd ered By: Aparna Mabry on 10-31-2024 Albumin/Globulin [Mass ratio] 1.0 {ratio} 0.9-2.4 [facility] Basophil percentageOrdered B y: Aparna Mabry on 10-31-2024 Basophils/100 WBC (Bld) 0.4 % 0-1 [facility] Bedside Glucoseon 10-31-2024 FINGERSTICK GLU 115 mg/dL High 74-106 [facility] Comment on above: Result Comment: RONNIE GEMENT OF PATIENT CARE PER NURSING PROTOCOL Performed By: #### L 501.080 ####[facility] [address] [place], [address] FINGERSTICK GLU 171 mg/dL High [facility]106 [facility] Comment on above: Result Comment: RONNIE GEMENT OF PATIENT CARE PER NURSING PROTOCOL Performed By: #### L 501.080 ####[facility] [address] [place], [address] FINGERSTICK GLU 138 mg/dL High 74-106 [facility] Comment on above: Result Comment: RONNIE GEMENT OF PATIENT CARE PER NURSING PROTOCOL Performed By: #### L 501.080 ####[facility] [address] [place], [address] FINGERSTICK GLU 102 mg/dL Normal -106 [facility] Comment on above: Result Comment: RONNIE GEMENT OF PATIENT CARE PER NURSING PROTOCOL Performed By: #### L 501.080 ####[facility] [address] [place], [address] Bilirubin, totalOrdered By: Aparna Mabry on 10-31-2024 Bilirubin [Mass/Vol] 0.50 mg/dL 0.20-1.00 [facility] Comment on above: For patients on eltr ombopag therapy, use of Dimension [place] TBIL is not recommended. CBC W/Diff, Automatedon 10-15 Absolute Lymph 1.67 X10 3/uL Normal 0.83-4.51 [facility] Comment on above: Performed By: #### L 100.0100, L500.4050 ####[facility] [address] [place], [address] Absolute Neut 6.8 X10 3/uL Normal 2.0-7.7 [facility] Comment on above: Performed By: #### L 100.0100, L500.4050 ####[facility] [address] [place], [address] Basophils/100 WBC (Bld) 0.4 % Normal 0-1 [facility] Comment on above: Performed By: #### L 100.0100, L500.4050 ####[facility] [address] [place], [address] Eosinophils/100 WBC (Bld) 2.4 % Normal 0-5 [facility] Comment on above: Performed By: #### L 100.0100, L500.4050 ####[facility] [address] [place], [address] Erythrocyte distribution width (RBC) [Ratio] 15.9 % High 11.6-14.6 [facility] Comment on above: Performed By: #### L 100.0100, L500.4050 ####[facility] [address] [place], [address] Hematocrit (Bld) [Volume fraction] 32.9 % Low 37-47 [facility] Comment on above: Performed By: #### L 100.0100, L500.4050 ####[facility] [address] [place], [address] Hemoglobin (Bld) [Mass/Vol] 10.2 g/dL Low 12.0-15.0 [facility] Comment on above: Performed By: #### L 100.0100, L500.4050 ####[facility] [address] [place], [address] IG% 0.700 Normal 0.0-0.9 [facility] Comment on above: Result Comment: IG% - Immature Granulocytes (promyelocytes, myelocytes andmetamyelocytes) > 1% indicates that a LEFT SHIFT is Present. Performed By: #### L 100.0100, L500.4050 ####[facility] [address] [place], [address] Lymphocytes/100 WBC (Bld) 17.3 % Low 19-41 [facility] Comment on above: Performed By: #### L 100.0100, L500.4050 ####[facility] [address] [place], [address] MCH (RBC) [Entitic mass] 29.6 pg Normal 27.0-32.0 [facility] Comment on above: Performed By: #### L 100.0100, L500.4050 ####[facility] [address] [place], [address] MCHC (RBC) [Mass/Vol] 31.0 g/dL Low 32-36 [facility] Comment on above: Performed By: #### L 100.0100, L500.4050 ####[facility] [address] [place], [address] MCV (RBC) [Entitic vol] 95.4 fL Normal 81-99 [facility] Comment on above: Performed By: #### L 100.0100, L500.4050 ####[facility] [address] [place], [address] Monocytes/100 WBC (Bld) 8.3 % Normal 0-10 [facility] Comment on above: Performed By: #### L 100.0100, L500.4050 ####[facility] [address] [place], [address] Neutrophils/100 WBC (Bld) 70.9 % High 47-70 [facility] Comment on above: Performed By: #### L 100.0100, L500.4050 ####[facility] [address] [place], [address] Nucleated RBC (Bld) [#/Vol] 0.8 10*3/uL Normal 0-5 [facility] Comment on above: Performed By: #### L 100.0100, L500.4050 ####[facility] [address] [place], [address] Platelet mean volume (Bld) [Entitic vol] 9.0 fL Normal 6.2-12.0 [facility] Comment on above: Performed By: #### L 100.0100, L500.4050 ####[facility] [address] [place], [address] Platelets (Bld) [#/Vol] 280 10*3/uL Normal 150-450 [facility] Comment on above: Performed By: #### L 100.0100, L500.4050 ####[facility] [address] [place], [address] RBC (Bld) [#/Vol] 3.45 10*6/uL Low 4.2-5.4 [facility] Comment on above: Performed By: #### L 100.0100, L500.4050 ####[facility] [address] [place], [address] RDW SD 51.4 fl High 35.1-43.9 [facility] Comment on above: Performed By: #### L 100.0100, L500.4050 ####[facility] [address] [place], [address] WBC (Bld) [#/Vol] 9.6 10*3/uL Normal 4.4-11.0 [facility] Comment on above: Performed By: #### L 100.0100, L500.4050 ####[facility] [address] [place], [address] Chest 1 View (Portable)on Chest 1 View (Portable) Normal [facility] Comprehensive Metabolic Prof ilon 10-31-2024 Albumin [Mass/Vol] 3.0 g/dL Low 3.2-5.0 [facility] Comment on above: Performed By: #### L 100.0100, L500.4050 ####[facility] [address] [place], [address] Albumin/Globulin [Mass ratio] 1.0 {ratio} Normal 0.9-2.4 [facility] Comment on above: Performed By: #### L 100.0100, L500.4050 ####[facility] [address] [place], [address] ALK P 83 U/L Normal 45-117 [facility] Comment on above: Performed By: #### L 100.0100, L500.4050 ####[facility] [address] [place], [address] ALT [Catalytic activity/Vol] 21 U/L Normal 13-56 [facility] Comment on above: Performed By: #### L 100.0100, L500.4050 ####[facility] [address] [place], [address] AST [Catalytic activity/Vol] 17 U/L Normal 15-37 [facility] Comment on above: Performed By: #### L 100.0100, L500.4050 ####[facility] [address] [place], [address] Bilirubin [Mass/Vol] 0.50 mg/dL Normal 0.20-1.00 [facility] Comment on above: Result Comment: For patients on eltrombopag therapy, use of Dimension [place] TBIL is not recommended. Performed By: #### L 100.0100, L500.4050 ####[facility] [address] [place], [address] BUN/CRE 18.4 RATIO Normal 10-20 [facility] Comment on above: Performed By: #### L 100.0100, L500.4050 ####[facility] [address] [place], [address] CA,Total 8.8 mg/dL Normal 8.5-10.1 [facility] Comment on above: Performed By: #### L 100.0100, L500.4050 ####[facility] [address] [place], [address] Chloride [Moles/Vol] 112 mmol/L High 98-107 [facility] Comment on above: Performed By: #### L 100.0100, L500.4050 ####[facility] [address] [place], [address] CO2 [Moles/Vol] 26.0 mmol/L Normal 21.0-32.0 [facility] Comment on above: Performed By: #### L 100.0100, L500.4050 ####[facility] [address] [place], [address] Creatinine [Mass/Vol] 1.52 mg/dL High 0.55-1.02 [facility] Comment on above: Result Comment: The validity of the calculated GFR GFRAA in patients over70 years has not been determined. Clinical correlation isessential. Performed By: #### L 100.0100, L500.4050 ####[facility] [address] [place], [address] ECRCL 38.15 ml/min Normal [facility] Comment on above: Performed By: #### L 100.0100, L500.4050 ####[facility] [address] [place], [address] EST GFR - AA 43 mL/min Low >60 [facility] Comment on above: Result Comment: Afri can Sudanese GFR Calc Performed By: #### L 100.0100, L500.4050 ####[facility] [address] [place], [address] GAP 5 Normal 5-15 [facility] Comment on above: Performed By: #### L 100.0100, L500.4050 ####[facility] [address] [place], [address] GFR/1.73 sq M.predicted among non-blacks MDRD (S/P/Bld) [Vol rate/Area] 36 mL/min/{1.73_m2} Low >60 [facility] Comment on above: Result Comment: Non- GFR Calc Performed By: #### L 100.0100, L500.4050 ####[facility] [address] [place], [address] Globulin (S) [Mass/Vol] 3.1 g/dL Normal 2.2-4.2 [facility] Comment on above: Performed By: #### L 100.0100, L500.4050 ####[facility] [address] [place], [address] Glucose [Mass/Vol] 117 mg/dL High 74-106 [facility] Comment on above: Result Comment: Fast ing Glucose result from 100 to 125 mg/dLsuggests IMPAIRED HOMEOSTASIS per A.D.A. criteria. Performed By: #### L 100.0100, L500.4050 ####[facility] [address] [place], [address] Potassium [Moles/Vol] 4.1 mmol/L Normal 3.5-5.1 [facility] Comment on above: Performed By: #### L 100.0100, L500.4050 ####[facility] [address] [place], [address] Sodium [Moles/Vol] 143 mmol/L Normal 136-145 [facility] Comment on above: Performed By: #### L 100.0100, L500.4050 ####[facility] [address] [place], [address] T PROT 6.1 g/dL Low 6.4-8.2 [facility] Comment on above: Performed By: #### L 100.0100, L500.4050 ####[facility] [address] [place], [address] Urea nitrogen [Mass/Vol] 28 mg/dL High 7-18 [facility] Comment on above: Performed By: #### L 100.0100, L500.4050 ####[facility] [address] [place], [address] Eosinophil percentageOrdered By: Aparna Mabry on 10-31-2024 Eosinophils/100 WBC (Bld) 2.4 % 0-5 [facility] Immature granulocytes/100 WB C Auto (Bld)Ordered By: Aparna Mabry on 10-31-2024 Immature granulocytes/100 WBC (Bld) 0.700 % 0.0-0.9 [facility] Comment on above: IG% - Immature Granu locytes (promyelocytes, myelocytes and metamyelocytes) > 1% indicates that a LEFT SHIFT is Present. Laboratory - Chemistry and C hemistry - challengeOrdered By: Aparna Mabry on 10-31-2024 AST [Catalytic activity/Vol] 17 U/L 15-37 [facility] Lymphocytes Auto (Unsp spec) [#/Vol]Ordered By: Aparna Mabry on 10-31-2024 Lymphocytes (Bld) [#/Vol] 1.67 10*3/uL 0.83-4.51 [facility] Lymphocytes/100 WBC Auto (Un sp spec)Ordered By: Aparna Mabry on 10-31-2024 Lymphocytes/100 WBC (Bld) 17.3 % Low 19-41 [facility] Monocyte percentageOrdered B y: Aparna Mabry on 10-31-2024 Monocytes/100 WBC (Bld) 8.3 % 0-10 [facility] Neutrophil percentageOrdered By: Aparna Mabry on 10-31-2024 Neutrophils/100 WBC (Bld) 70.9 % High 47-70 [facility] Nucleated red blood cell per centageOrdered By: Aparna Mabry on 10-31-2024 Nucleated RBC/100 WBC (Bld) [Ratio] 0.8 % 0-5 [facility] Serum globulin measurementOr dered By: Aparna Mabry on 10-31-2024 Globulin (S) [Mass/Vol] 3.1 g/dL 2.2-4.2 [facility] Serum or plasma alanine price otransferase (ALT) measurementOrdered By: Aparna Mabry on 10-31-2024 ALT [Catalytic activity/Vol] 21 U/L 13-56 [facility] Serum or plasma albumin ras urement (mass/volume)Ordered By: Aparna Mabry on 10-31-2024 Albumin [Mass/Vol] 3.0 g/dL Low 3.2-5.0 [facility] Serum or plasma alkaline destini sphatase measurementOrdered By: Aparna Mabry on 10-31-2024 ALP [Catalytic activity/Vol] 83 U/L 45-117 [facility] Total proteinOrdered By: Zee Mabry on 10-31-2024 Protein [Mass/Vol] 6.1 g/dL Low 6.4-8.2 [facility] 12 Lead EKGon 10-30-2024 12 Lead EKG Normal [facility] BNP (brain natriuretic pepti de measurement)Ordered By: Fitz Deleon on 10-30-2024 Natriuretic peptide B (Bld) [Mass/Vol] 1105.1 pg/mL High 0-100 [facility] BNP,B-Type NATRIURETIC PEPTI Ting 10-30-2024 Natriuretic peptide B (Bld) [Mass/Vol] 1105.1 pg/mL High 0-100 [facility] Comment on above: Performed By: #### L 100.0100, L501.5425, L500.2500, L503.6620, L300.8000 ####[facility] [address] [place], [address] Basic Metabolic Profile (BMP )on 10-30-2024 BUN/CRE 19.5 RATIO Normal 10-20 [facility] Comment on above: Order Comment: 1Y Performed By: #### L 100.0100, L501.5425, L500.2500, L503.6620, L300.8000 ####[facility] [address] [place], [address] CA,Total 9.6 mg/dL Normal 8.5-10.1 [facility] Comment on above: Order Comment: 1Y Performed By: #### L 100.0100, L501.5425, L500.2500, L503.6620, L300.8000 ####[facility] [address] [place], [address] Chloride [Moles/Vol] 110 mmol/L High 98-107 [facility] Comment on above: Order Comment: 1Y Performed By: #### L 100.0100, L501.5425, L500.2500, L503.6620, L300.8000 ####[facility] [address] [place], [address] CO2 [Moles/Vol] 24.0 mmol/L Normal 21.0-32.0 [facility] Comment on above: Order Comment: 1Y Performed By: #### L 100.0100, L501.5425, L500.2500, L503.6620, L300.8000 ####[facility] [address] [place], [address] Creatinine [Mass/Vol] 1.54 mg/dL High 0.55-1.02 [facility] Comment on above: Order Comment: 1Y Result Comment: The validity of the calculated GFR GFRAA in patients over70 years has not been determined. Clinical correlation isessential. Performed By: #### L 100.0100, L501.5425, L500.2500, L503.6620, L300.8000 ####[facility] [address] [place], [address] EST GFR - AA 42 mL/min Low >60 [facility] Comment on above: Order Comment: 1Y Result Comment: Afri can Sudanese GFR Calc Performed By: #### L 100.0100, L501.5425, L500.2500, L503.6620, L300.8000 ####[facility] [address] [place], [address] GAP 7 Normal 5-15 [facility] Comment on above: Order Comment: 1Y Performed By: #### L 100.0100, L501.5425, L500.2500, L503.6620, L300.8000 ####[facility] [address] [place], [address] GFR/1.73 sq M.predicted among non-blacks MDRD (S/P/Bld) [Vol rate/Area] 35 mL/min/{1.73_m2} Low >60 [facility] Comment on above: Order Comment: 1Y Result Comment: Non- GFR Calc Performed By: #### L 100.0100, L501.5425, L500.2500, L503.6620, L300.8000 ####[facility] [address] [place], [address] Glucose [Mass/Vol] 167 mg/dL High 74-106 [facility] Comment on above: Order Comment: 1Y Result Comment: Fast ing Glucose result greater than or equal to 126 mg/dLsuggests DIABETES MELLITUS per A.D.A. criteria. Performed By: #### L 100.0100, L501.5425, L500.2500, L503.6620, L300.8000 ####[facility] [address] [place], [address] Potassium [Moles/Vol] 4.4 mmol/L Normal 3.5-5.1 [facility] Comment on above: Order Comment: 1Y Performed By: #### L 100.0100, L501.5425, L500.2500, L503.6620, L300.8000 ####[facility] [address] [place], [address] Sodium [Moles/Vol] 141 mmol/L Normal 136-145 [facility] Comment on above: Order Comment: 1Y Performed By: #### L 100.0100, L501.5425, L500.2500, L503.6620, L300.8000 ####[facility] [address] [place], [address] Urea nitrogen [Mass/Vol] 30 mg/dL High 7-18 [facility] Comment on above: Order Comment: 1Y Performed By: #### L 100.0100, L501.5425, L500.2500, L503.6620, L300.8000 ####[facility] [address] [place], [address] Bedside Glucoseon 10-30-2024 FINGERSTICK GLU 159 mg/dL High 74-106 [facility] Comment on above: Result Comment: RONNIE GEMENT OF PATIENT CARE PER NURSING PROTOCOL Performed By: #### L 501.080 ####[facility] [address] [place], [address] FINGERSTICK GLU 110 mg/dL High 74-106 [facility] Comment on above: Result Comment: RONNIE GEMENT OF PATIENT CARE PER NURSING PROTOCOL Performed By: #### L 501.080 ####[facility] [address] [place], [address] CBC W/Diff, Automatedon 12- Absolute Lymph 1.40 X10 3/uL Normal 0.83-4.51 [facility] Comment on above: Performed By: #### L 100.0100, L501.5425, L500.2500, L503.6620, L300.8000 ####[facility] [address] [place], [address] Absolute Neut 10.5 X10 3/uL High 2.0-7.7 [facility] Comment on above: Performed By: #### L 100.0100, L501.5425, L500.2500, L503.6620, L300.8000 ####[facility] [address] [place], [address] Basophils/100 WBC (Bld) 0.5 % Normal 0-1 [facility] Comment on above: Performed By: #### L 100.0100, L501.5425, L500.2500, L503.6620, L300.8000 ####[facility] [address] [place], [address] Eosinophils/100 WBC (Bld) 0.8 % Normal 0-5 [facility] Comment on above: Performed By: #### L 100.0100, L501.5425, L500.2500, L503.6620, L300.8000 ####[facility] [address] [place], [address] Erythrocyte distribution width (RBC) [Ratio] 15.6 % High 11.6-14.6 [facility] Comment on above: Performed By: #### L 100.0100, L501.5425, L500.2500, L503.6620, L300.8000 ####[facility] [address] [place], [address] Hematocrit (Bld) [Volume fraction] 40.3 % Normal 37-47 [facility] Comment on above: Performed By: #### L 100.0100, L501.5425, L500.2500, L503.6620, L300.8000 ####[facility] [address] [place], [address] Hemoglobin (Bld) [Mass/Vol] 12.4 g/dL Normal 12.0-15.0 [facility] Comment on above: Performed By: #### L 100.0100, L501.5425, L500.2500, L503.6620, L300.8000 ####[facility] [address] [place], [address] IG% 1.800 High 0.0-0.9 [facility] Comment on above: Result Comment: IG% - Immature Granulocytes (promyelocytes, myelocytes andmetamyelocytes) > 1% indicates that a LEFT SHIFT is Present. Performed By: #### L 100.0100, L501.5425, L500.2500, L503.6620, L300.8000 ####[facility] [address] [place], [address] Lymphocytes/100 WBC (Bld) 10.8 % Low 19-41 [facility] Comment on above: Performed By: #### L 100.0100, L501.5425, L500.2500, L503.6620, L300.8000 ####[facility] [address] [place], [address] MCH (RBC) [Entitic mass] 29.0 pg Normal 27.0-32.0 [facility] Comment on above: Performed By: #### L 100.0100, L501.5425, L500.2500, L503.6620, L300.8000 ####[facility] [address] [place], [address] MCHC (RBC) [Mass/Vol] 30.8 g/dL Low 32-36 [facility] Comment on above: Performed By: #### L 100.0100, L501.5425, L500.2500, L503.6620, L300.8000 ####[facility] [address] [place], [address] MCV (RBC) [Entitic vol] 94.4 fL Normal 81-99 [facility] Comment on above: Performed By: #### L 100.0100, L501.5425, L500.2500, L503.6620, L300.8000 ####[facility] [address] [place], [address] Monocytes/100 WBC (Bld) 5.3 % Normal 0-10 [facility] Comment on above: Performed By: #### L 100.0100, L501.5425, L500.2500, L503.6620, L300.8000 ####[facility] [address] [place], [address] Neutrophils/100 WBC (Bld) 80.8 % High 47-70 [facility] Comment on above: Performed By: #### L 100.0100, L501.5425, L500.2500, L503.6620, L300.8000 ####[facility] [address] [place], [address] Nucleated RBC (Bld) [#/Vol] 1.8 10*3/uL Normal 0-5 [facility] Comment on above: Performed By: #### L 100.0100, L501.5425, L500.2500, L503.6620, L300.8000 ####[facility] [address] [place], [address] Platelet mean volume (Bld) [Entitic vol] 9.1 fL Normal 6.2-12.0 [facility] Comment on above: Performed By: #### L 100.0100, L501.5425, L500.2500, L503.6620, L300.8000 ####[facility] [address] [place], [address] Platelets (Bld) [#/Vol] 375 10*3/uL Normal 150-450 [facility] Comment on above: Performed By: #### L 100.0100, L501.5425, L500.2500, L503.6620, L300.8000 ####[facility] [address] [place], [address] RBC (Bld) [#/Vol] 4.27 10*6/uL Normal 4.2-5.4 [facility] [facility] Comment on above: Performed By: #### L 100.0100, L501.5425, L500.2500, L503.6620, L300.8000 ####[facility] [address] [place], [address] RDW SD 49.0 fl High 35.1-43.9 [facility] Comment on above: Performed By: #### L 100.0100, L501.5425, L500.2500, L503.6620, L300.8000 ####[facility] [address] [place], [address] WBC (Bld) [#/Vol] 12.9 10*3/uL High 4.4-11.0 [facility] Comment on above: Performed By: #### L 100.0100, L501.5425, L500.2500, L503.6620, L300.8000 ####[facility] [address] [place], [address] CTA Chest W/WO Contraston CTA Chest W/WO Contrast Normal [facility] Chest PA and Lateralon 10-30 Chest PA and Lateral Normal [facility] D-Dimer Quantitative (DVT/PE )on 10-30-2024 D-DIMER QUANT 0.94 FEU/ug/m Invalid Interpretation Code 0.27-0.49 [facility] Comment on above: Result Comment: D-Di olivia ELEVATED (>0.49): Additional studies and clinicalassessments are indicated to conclude diagnosis of:Deep Vein Thrombosis (DVT) or Pulmonary Embolism (PE)CRITICAL VALUE CALLED TO YARELI MENENDEZ (ER)10/30/24 1511 Chayo Marley.RESULTS READ BACK BY SAME. Performed By: #### L 100.0100, L501.5425, L500.2500, L503.6620, L300.8000 ####[facility] [address] [place], [address] D-dimer measurement for deep venous thrombosisOrdered By: Fitz Deleon on 10-30-2024 D-Dimer Quantitative (PE/DVT) 0.94 FEU/ug/m High 0.27-0.49 [facility] Comment on above: D-Dimer ELEVATED (>0 .49): Additional studies and clinicalassessments are indicated to conclude diagnosis of:Deep Vein Thrombosis (DVT) or Pulmonary Embolism (PE)CRITICAL VALUE CALLED TO YARELI MENENDEZ (ER)10/30/24 1511 Chayo Marley.RESULTS READ BACK BY SAME. Emergency Department Summary on 10-30-2024 Emergency Department Summary Normal [facility] H AND P Exam - Hospitaliston 10-30-2024 H&P Exam - Hospitalist Normal [facility] L501.4020on 10-30-2024 TROPONIN-I HS 379 pg/mL Invalid Interpretation Code 3.0-54.0 [facility] Comment on above: Result Comment: Crit ical Result(s) Called at: 17:48:37 10/30/2024 by: RIVERA CARVER. Results read back by same. Please Note: New Test Units and Gender Specific Reference Ranges. For more information see Policy Stat Procedure [place] High Sensitivity Troponin (TNIH) and attachments. Performed By: #### L 501.4020 ####[facility] [address] [place], [address] L501.5425on 10-30-2024 TROPONIN-I HS 379 pg/mL Invalid Interpretation Code 3.0-54.0 [facility] Comment on above: Order Comment: 1Y Result Comment: Crit ical Result(s) Called at: 15:11:40 10/30/2024 by:Joan sanchez TO DEAN. Results read back by same. Please Note: New Test Units and Gender Specific Reference Ranges. For more information see Policy Stat Procedure [place] High Sensitivity Troponin (TNIH) and attachments. Performed By: #### L 100.0100, L501.5425, L500.2500, L503.6620, L300.8000 ####[facility] [address] [place], [address] Troponin IOrdered By: Fitz richard on 10-30-2024 Troponin I High Sensitivity 379 pg/mL High 3.0-54.0 [facility] Comment on above: Critical Result(s) C alled at: 17:48:37 10/30/2024 by: ZACHRAY GARCIA TO BRENNA CARVER. Results read back by same. Please Note: New Test Units and Gender Specific Reference Ranges. For more information see Policy Stat Procedure [place] High Sensitivity Troponin (TNIH) and attachments. Culture, Blood (WB)on 2023 CUB Blood cultures x2, from two different sites No growth in 5 days. Normal [facility] Comment on above: Performed By: #### M 200.1000, L501.4020, L501.9520, L300.8000, L300.3900, L300.4310 ####[facility] [address] [place], [address] Absolute neutrophil countOrd ered By: Girish Herrera on 10-21-2024 Neutrophils (Bld) [#/Vol] 8.0 10*3/uL High 2.0-7.7 [facility] Basic Metabolic Profile (BMP )on 10-21-2024 BUN/CRE 18.3 RATIO Normal 10-20 [facility] Comment on above: Performed By: #### L 100.0100, L500.2500 ####[facility] [address] [place], [address] CA,Total 8.8 mg/dL Normal 8.5-10.1 [facility] Comment on above: Performed By: #### L 100.0100, L500.2500 ####[facility] [address] [place], [address] Chloride [Moles/Vol] 111 mmol/L High 98-107 [facility] Comment on above: Performed By: #### L 100.0100, L500.2500 ####[facility] [address] [place], [address] CO2 [Moles/Vol] 26.0 mmol/L Normal 21.0-32.0 [facility] Comment on above: Performed By: #### L 100.0100, L500.2500 ####[facility] [address] [place], [address] Creatinine [Mass/Vol] 1.15 mg/dL High 0.55-1.02 [facility] Comment on above: Result Comment: The validity of the calculated GFR GFRAA in patients over70 years has not been determined. Clinical correlation isessential. Performed By: #### L 100.0100, L500.2500 ####[facility] [address] [place], [address] ECRCL 50.15 ml/min Normal [facility] Comment on above: Performed By: #### L 100.0100, L500.2500 ####[facility] [address] [place], [address] EST GFR - AA 59 mL/min Low >60 [facility] Comment on above: Result Comment: Afri can Sudanese GFR Calc Performed By: #### L 100.0100, L500.2500 ####[facility] [address] [place], [address] GAP 7 Normal 5-15 [facility] Comment on above: Performed By: #### L 100.0100, L500.2500 ####[facility] [address] [place], [address] GFR/1.73 sq M.predicted among non-blacks MDRD (S/P/Bld) [Vol rate/Area] 49 mL/min/{1.73_m2} Low >60 [facility] Comment on above: Result Comment: Non- GFR Calc Performed By: #### L 100.0100, L500.2500 ####[facility] [address] [place], [address] Glucose [Mass/Vol] 123 mg/dL High 74-106 [facility] Comment on above: Result Comment: Fast ing Glucose result from 100 to 125 mg/dLsuggests IMPAIRED HOMEOSTASIS per A.D.A. criteria. Performed By: #### L 100.0100, L500.2500 ####[facility] [address] [place], [address] Potassium [Moles/Vol] 3.7 mmol/L Normal 3.5-5.1 [facility] Comment on above: Performed By: #### L 100.0100, L500.2500 ####[facility] [address] [place], [address] Sodium [Moles/Vol] 143 mmol/L Normal 136-145 [facility] Comment on above: Performed By: #### L 100.0100, L500.2500 ####[facility] [address] [place], [address] Urea nitrogen [Mass/Vol] 21 mg/dL High 7-18 [facility] Comment on above: Performed By: #### L 100.0100, L500.2500 ####[facility] [address] [place], [address] Basophil percentageOrdered B y: Girish Herrera on 10-21-2024 Basophils/100 WBC (Bld) 0.3 % 0-1 [facility] Bedside Glucoseon 10-21-2024 FINGERSTICK GLU 176 mg/dL High 74-106 [facility] Comment on above: Result Comment: RONNIE GEMENT OF PATIENT CARE PER NURSING PROTOCOL Performed By: #### L 501.080 ####[facility] [address] [place], [address] FINGERSTICK GLU 125 mg/dL High 74-106 [facility] Comment on above: Result Comment: RONNIE GEMENT OF PATIENT CARE PER NURSING PROTOCOL Performed By: #### L 501.080 ####[facility] [address] [place], [address] Blood urea nitrogen (BUN)/cr eatinine ratioOrdered By: Girish Herrera on 10-21-2024 Urea nitrogen/Creatinine [Mass ratio] 18.3 mg/mg 10-20 [facility] CBC W/Diff, Automatedon 12-0 Absolute Lymph 1.86 X10 3/uL Normal 0.83-4.51 [facility] Comment on above: Performed By: #### L 100.0100, L500.2500 ####[facility] [address] [place], [address] Absolute Neut 8.0 X10 3/uL High 2.0-7.7 [facility] Comment on above: Performed By: #### L 100.0100, L500.2500 ####[facility] [address] [place], [address] Basophils/100 WBC (Bld) 0.3 % Normal 0-1 [facility] Comment on above: Performed By: #### L 100.0100, L500.2500 ####[facility] [address] [place], [address] Eosinophils/100 WBC (Bld) 4.1 % Normal 0-5 [facility] Comment on above: Performed By: #### L 100.0100, L500.2500 ####[facility] [address] [place], [address] Erythrocyte distribution width (RBC) [Ratio] 14.6 % Normal 11.6-14.6 [facility] Comment on above: Performed By: #### L 100.0100, L500.2500 ####[facility] [address] [place], [address] Hematocrit (Bld) [Volume fraction] 33.4 % Low 37-47 [facility] Comment on above: Performed By: #### L 100.0100, L500.2500 ####[facility] [address] [place], [address] Hemoglobin (Bld) [Mass/Vol] 10.2 g/dL Low 12.0-15.0 [facility] Comment on above: Performed By: #### L 100.0100, L500.2500 ####[facility] [address] [place], [address] IG% 0.900 Normal 0.0-0.9 [facility] Comment on above: Result Comment: IG% - Immature Granulocytes (promyelocytes, myelocytes andmetamyelocytes) > 1% indicates that a LEFT SHIFT is Present. Performed By: #### L 100.0100, L500.2500 ####[facility] [address] [place], [address] Lymphocytes/100 WBC (Bld) 16.6 % Low 19-41 [facility] Comment on above: Performed By: #### L 100.0100, L500.2500 ####[facility] [address] [place], [address] MCH (RBC) [Entitic mass] 28.5 pg Normal 27.0-32.0 [facility] Comment on above: Performed By: #### L 100.0100, L500.2500 ####[facility] [address] [place], [address] MCHC (RBC) [Mass/Vol] 30.5 g/dL Low 32-36 [facility] Comment on above: Performed By: #### L 100.0100, L500.2500 ####[facility] [address] [place], [address] MCV (RBC) [Entitic vol] 93.3 fL Normal 81-99 [facility] Comment on above: Performed By: #### L 100.0100, L500.2500 ####[facility] [address] [place], [address] Monocytes/100 WBC (Bld) 7.2 % Normal 0-10 [facility] Comment on above: Performed By: #### L 100.0100, L500.2500 ####[facility] [address] [place], [address] Neutrophils/100 WBC (Bld) 70.9 % High 47-70 [facility] Comment on above: Performed By: #### L 100.0100, L500.2500 ####[facility] [address] [place], [address] Nucleated RBC (Bld) [#/Vol] 0 10*3/uL Normal 0-5 [facility] Comment on above: Performed By: #### L 100.0100, L500.2500 ####[facility] [address] [place], [address] Platelet mean volume (Bld) [Entitic vol] 9.1 fL Normal 6.2-12.0 [facility] Comment on above: Performed By: #### L 100.0100, L500.2500 ####[facility] [address] [place], [address] Platelets (Bld) [#/Vol] 313 10*3/uL Normal 150-450 [facility] Comment on above: Performed By: #### L 100.0100, L500.2500 ####[facility] [address] [place], [address] RBC (Bld) [#/Vol] 3.58 10*6/uL Low 4.2-5.4 [facility] Comment on above: Performed By: #### L 100.0100, L500.2500 ####[facility] [address] [place], [address] RDW SD 49.0 fl High 35.1-43.9 [facility] Comment on above: Performed By: #### L 100.0100, L500.2500 ####[facility] [address] [place], [address] WBC (Bld) [#/Vol] 11.2 10*3/uL High 4.4-11.0 [facility] Comment on above: Performed By: #### L 100.0100, L500.2500 ####[facility] [address] [place], [address] Carbon dioxide measurementOr dered By: Girish Herrera on 10-21-2024 CO2 [Moles/Vol] 26.0 mmol/L 21.0-32.0 [facility] Chloride measurementOrdered By: Girish Herrera on 10-21-2024 Chloride [Moles/Vol] 111 mmol/L High 98-107 [facility] Discharge Instructionon 12-0 Discharge Instruction Normal [facility] Eosinophil percentageOrdered By: Girish Herrera on 10-21-2024 Eosinophils/100 WBC (Bld) 4.1 % 0-5 [facility] Erythrocyte distribution wid th ratioOrdered By: Girish Herrera on 10-21-2024 Erythrocyte distribution width (RBC) [Ratio] 14.6 % 11.6-14.6 [facility] Erythrocyte distribution wid th standard deviationOrdered By: Girish Herrera on 10-21-2024 Erythrocyte distribution width (RBC) [Entitic vol] 49.0 fL High 35.1-43.9 [facility] Estimated glomerular filtrat ion rate (GFR) AmericanOrdered By: Girish Herrera on 10-21-2024 Estimated GFR (MDRD) Amer 59 mL/min Low >60 [facility] Comment on above: GFR Calc Estimation of creatinine mp aranceOrdered By: Girish Herrera on 10-21-2024 Estimated Creatinine Clearance Calc 50.15 ml/min [facility] Glomerular filtration rate ( GFR) estimationOrdered By: Girish Herrera on 10-21-2024 Estimated GFR (MDRD) Non-Af Amer 49 mL/min Low >60 [facility] Comment on above: Non- GFR Calc Glucose measurementOrdered B y: Girish Herrera on 10-21-2024 Glucose [Mass/Vol] 123 mg/dL High 74-106 [facility] Comment on above: Fasting Glucose resu lt from 100 to 125 mg/dL suggests IMPAIRED HOMEOSTASIS per A.D.A. criteria. [facility] deOrdered By: Seth Garnica on 10-21-2024 Bedside Glucose (Misc Panel) 176 mg/dL High 74-106 [facility] Comment on above: MANAGEMENT OF PATIEN T CARE PER NURSING PROTOCOL Hematocrit Auto (Bld) [Volum e fraction]Ordered By: Girish Herrera on 10-21-2024 Hematocrit (Bld) [Volume fraction] 33.4 % Low 37-47 [facility] Hemoglobin measurementOrdere d By: Girish Herrera on 10-21-2024 Hemoglobin (Bld) [Mass/Vol] 10.2 g/dL Low 12.0-15.0 [facility] Immature granulocytes/100 WB C Auto (Bld)Ordered By: Girish Herrera on 10-21-2024 Immature granulocytes/100 WBC (Bld) 0.900 % 0.0-0.9 [facility] Comment on above: IG% - Immature Granu locytes (promyelocytes, myelocytes and metamyelocytes) > 1% indicates that a LEFT SHIFT is Present. Lymphocytes Auto (Unsp spec) [#/Vol]Ordered By: Girish Herrera on 10-21-2024 Lymphocytes (Bld) [#/Vol] 1.86 10*3/uL 0.83-4.51 [facility] Lymphocytes/100 WBC Auto (Un sp spec)Ordered By: Girish Herrera on 10-21-2024 Lymphocytes/100 WBC (Bld) 16.6 % Low 19-41 [facility] MCV (mean corpuscular volume ) determinationOrdered By: Girish Herrera on 10-21-2024 MCV (RBC) [Entitic vol] 93.3 fL 81-99 [facility] Mean corpuscular hemoglobin (MCH) determinationOrdered By: Girish Herrera on 10-21-2024 MCH (RBC) [Entitic mass] 28.5 pg 27.0-32.0 [facility] Mean corpuscular hemoglobin concentration (MCHC) determinationOrdered By: Girish Herrera on 10-21-2024 MCHC (RBC) [Mass/Vol] 30.5 g/dL Low 32-36 [facility] Mean platelet volume determi nationOrdered By: Girish Herrera on 10-21-2024 Platelet mean volume (Bld) [Entitic vol] 9.1 fL 6.2-12.0 [facility] Monocyte percentageOrdered B y: Girish Herrera on 10-21-2024 Monocytes/100 WBC (Bld) 7.2 % 0-10 [facility] Neutrophil percentageOrdered By: Girish Herrera on 10-21-2024 Neutrophils/100 WBC (Bld) 70.9 % High 47-70 [facility] Nucleated red blood cell per centageOrdered By: Girish Herrera on 10-21-2024 Nucleated RBC/100 WBC (Bld) [Ratio] 0 % 0-5 [facility] Platelet countOrdered By: Octavio Herrera on 10-21-2024 Platelets (Bld) [#/Vol] 313 10*3/uL 150-450 [facility] Potassium measurementOrdered By: Girish Herrera on 10-21-2024 Potassium [Moles/Vol] 3.7 mmol/L 3.5-5.1 [facility] RBC Auto (Bld) [#/Vol]Ordere d By: Girish Herrera on 10-21-2024 RBC (Bld) [#/Vol] 3.58 10*6/uL Low 4.2-5.4 [facility] Serum anion gap measurementO rdered By: Girish Herrera on 10-21-2024 Anion gap [Moles/Vol] 7 mmol/L 5-15 [facility] Serum or plasma calcium ras urement (mass/volume)Ordered By: Girish Herrera on 10-21-2024 Calcium [Mass/Vol] 8.8 mg/dL 8.5-10.1 [facility] Serum or plasma creatinine m easurement (mass/volume)Ordered By: Girish Herrera on 10-21-2024 Creatinine [Mass/Vol] 1.15 mg/dL High 0.55-1.02 [facility] Comment on above: The validity of the calculated GFR & GFRAA in patients over 70 years has not been determined. Clinical correlation is essential. Serum or plasma urea nitroge n measurement (mass/volume)Ordered By: Girish Herrera on 10-21-2024 Urea nitrogen [Mass/Vol] 21 mg/dL High 7-18 [facility] Sodium levelOrdered By: Nixon Herrera on 10-21-2024 Sodium [Moles/Vol] 143 mmol/L 136-145 [facility] Vancomycin trough [Mass/Vol] Ordered By: Girish Castro on 10-21-2024 Vancomycin Level Trough 11.7 ug/mL 5.0-15.0 [facility] Comment on above: VANCOMYCIN STANDARED DRUG THERAPY TROUGH LEVEL: 5.0 - 15.0 mg/L VANCOMYCIN HIGH INTENSITY THERAPY TROUGH LEVEL: 15.0 - 20.0 mg/L High Intensity therapy recommended for serious lifethreatening infections include:- Aompnpubrh-Ytokzzhnwsrw-Agehpjdet (Ventilator/Healtcare Associated)-Sepsis PLEASE CONTACT PHARMACY SERVICES (#[id number]) FOR INTERPRETATIONOF RESULTS. Vancomycin, Trough Levelon 1 12-22-2023 VANCO, TROUGH 11.7 ug/mL Normal 5.0-15.0 [facility] Comment on above: Order Comment: Comme nts: Trough to be drawn 30 mins prior to scheduled dose Result Comment: VANC OMYCIN STANDARED DRUG THERAPY TROUGH LEVEL: 5.0 - 15.0 mg/LVANCOMYCIN HIGH INTENSITY THERAPY TROUGH LEVEL: 15.0 - 20.0 mg/LHigh Intensity therapy recommended for serious lifethreatening infections include:- Temtlovbcx-Wqufkqmjjvkd-Nppfwtyqz (Ventilator/Healtcare Associated)-SepsisPLEASE CONTACT PHARMACY SERVICES (#5983) FOR INTERPRETATIONOF RESULTS. Performed By: #### L 501.8820 ####[facility] [address] [place], [address] White blood cell (WBC) count Ordered By: Girish Herrera on 10-21-2024 WBC (Bld) [#/Vol] 11.2 10*3/uL High 4.4-11.0 [facility] Basic Metabolic Profile (BMP )on 10-20-2024 BUN/CRE 24.3 RATIO High 10-20 [facility] Comment on above: Performed By: #### L 100.0100, L500.2500 ####[facility] [address] [place], [address] CA,Total 8.6 mg/dL Normal 8.5-10.1 [facility] Comment on above: Performed By: #### L 100.0100, L500.2500 ####[facility] [address] [place], [address] Chloride [Moles/Vol] 114 mmol/L High 98-107 [facility] Comment on above: Performed By: #### L 100.0100, L500.2500 ####[facility] [address] [place], [address] CO2 [Moles/Vol] 24.0 mmol/L Normal 21.0-32.0 [facility] Comment on above: Performed By: #### L 100.0100, L500.2500 ####[facility] [address] [place], [address] Creatinine [Mass/Vol] 1.07 mg/dL High 0.55-1.02 [facility] Comment on above: Result Comment: The validity of the calculated GFR GFRAA in patients over70 years has not been determined. Clinical correlation isessential. Performed By: #### L 100.0100, L500.2500 ####[facility] [address] [place], [address] ECRCL 53.90 ml/min Normal [facility] Comment on above: Performed By: #### L 100.0100, L500.2500 ####[facility] [address] [place], [address] EST GFR - AA 64 mL/min Normal >60 [facility] Comment on above: Result Comment: Afri can Sudanese GFR Calc Performed By: #### L 100.0100, L500.2500 ####[facility] [address] [place], [address] GAP 6 Normal 5-15 [facility] Comment on above: Performed By: #### L 100.0100, L500.2500 ####[facility] [address] [place], [address] GFR/1.73 sq M.predicted among non-blacks MDRD (S/P/Bld) [Vol rate/Area] 53 mL/min/{1.73_m2} Low >60 [facility] Comment on above: Result Comment: Non- GFR Calc Performed By: #### L 100.0100, L500.2500 ####[facility] [address] [place], [address] Glucose [Mass/Vol] 118 mg/dL High 74-106 [facility] Comment on above: Result Comment: Fast ing Glucose result from 100 to 125 mg/dLsuggests IMPAIRED HOMEOSTASIS per A.D.A. criteria. Performed By: #### L 100.0100, L500.2500 ####[facility] [address] [place], [address] Potassium [Moles/Vol] 4.1 mmol/L Normal 3.5-5.1 [facility] Comment on above: Performed By: #### L 100.0100, L500.2500 ####[facility] [address] [place], [address] Sodium [Moles/Vol] 144 mmol/L Normal 136-145 [facility] Comment on above: Performed By: #### L 100.0100, L500.2500 ####[facility] [address] [place], [address] Urea nitrogen [Mass/Vol] 26 mg/dL High 7-18 [facility] Comment on above: Performed By: #### L 100.0100, L500.2500 ####[facility] [address] [place], [address] Bedside Glucoseon 10-20-2024 FINGERSTICK GLU 156 mg/dL High 74-106 [facility] Comment on above: Result Comment: RONNIE GEMENT OF PATIENT CARE PER NURSING PROTOCOL Performed By: #### L 501.080 ####[facility] [address] [place], [address] FINGERSTICK GLU 144 mg/dL High 74-106 [facility] Comment on above: Result Comment: RONNIE GEMENT OF PATIENT CARE PER NURSING PROTOCOL Performed By: #### L 501.080 ####[facility] [address] [place], [address] FINGERSTICK GLU 114 mg/dL High 74-106 [facility] Comment on above: Result Comment: RONNIE GEMENT OF PATIENT CARE PER NURSING PROTOCOL Performed By: #### L 501.080 ####[facility] [address] [place], [address] CBC W/Diff, Automatedon Absolute Lymph 2.09 X10 3/uL Normal 0.83-4.51 [facility] Comment on above: Performed By: #### L 100.0100, L500.2500 ####[facility] [address] [place], [address] Absolute Neut 6.9 X10 3/uL Normal 2.0-7.7 [facility] Comment on above: Performed By: #### L 100.0100, L500.2500 ####[facility] [address] [place], [address] Basophils/100 WBC (Bld) 0.2 % Normal 0-1 [facility] Comment on above: Performed By: #### L 100.0100, L500.2500 ####[facility] [address] [place], [address] Eosinophils/100 WBC (Bld) 4.4 % Normal 0-5 [facility] Comment on above: Performed By: #### L 100.0100, L500.2500 ####[facility] [address] [place], [address] Erythrocyte distribution width (RBC) [Ratio] 14.9 % High 11.6-14.6 [facility] Comment on above: Performed By: #### L 100.0100, L500.2500 ####[facility] [address] [place], [address] Hematocrit (Bld) [Volume fraction] 33.3 % Low 37-47 [facility] Comment on above: Performed By: #### L 100.0100, L500.2500 ####[facility] [facility] [address] [place], [address] Hemoglobin (Bld) [Mass/Vol] 10.1 g/dL Low 12.0-15.0 [facility] Comment on above: Performed By: #### L 100.0100, L500.2500 ####[facility] [address] [place], [address] IG% 0.900 Normal 0.0-0.9 [facility] Comment on above: Result Comment: IG% - Immature Granulocytes (promyelocytes, myelocytes andmetamyelocytes) > 1% indicates that a LEFT SHIFT is Present. Performed By: #### L 100.0100, L500.2500 ####[facility] [address] [place], [address] Lymphocytes/100 WBC (Bld) 20.3 % Normal 19-41 [facility] Comment on above: Performed By: #### L 100.0100, L500.2500 ####[facility] [address] [place], [address] MCH (RBC) [Entitic mass] 28.6 pg Normal 27.0-32.0 [facility] Comment on above: Performed By: #### L 100.0100, L500.2500 ####[facility] [address] [place], [address] MCHC (RBC) [Mass/Vol] 30.3 g/dL Low 32-36 [facility] Comment on above: Performed By: #### L 100.0100, L500.2500 ####[facility] [address] [place], [address] MCV (RBC) [Entitic vol] 94.3 fL Normal 81-99 [facility] Comment on above: Performed By: #### L 100.0100, L500.2500 ####[facility] [address] [place], [address] Monocytes/100 WBC (Bld) 7.1 % Normal 0-10 [facility] Comment on above: Performed By: #### L 100.0100, L500.2500 ####[facility] [address] [place], [address] Neutrophils/100 WBC (Bld) 67.1 % Normal 47-70 [facility] Comment on above: Performed By: #### L 100.0100, L500.2500 ####[facility] [address] [place], [address] Nucleated RBC (Bld) [#/Vol] 0.2 10*3/uL Normal 0-5 [facility] Comment on above: Performed By: #### L 100.0100, L500.2500 ####[facility] [address] [place], [address] Platelet mean volume (Bld) [Entitic vol] 9.1 fL Normal 6.2-12.0 [facility] Comment on above: Performed By: #### L 100.0100, L500.2500 ####[facility] [address] [place], [address] Platelets (Bld) [#/Vol] 298 10*3/uL Normal 150-450 [facility] Comment on above: Performed By: #### L 100.0100, L500.2500 ####[facility] [address] [place], [address] RBC (Bld) [#/Vol] 3.53 10*6/uL Low 4.2-5.4 [facility] Comment on above: Performed By: #### L 100.0100, L500.2500 ####[facility] [address] [place], [address] RDW SD 51.3 fl High 35.1-43.9 [facility] Comment on above: Performed By: #### L 100.0100, L500.2500 ####[facility] [address] [place], [address] WBC (Bld) [#/Vol] 10.3 10*3/uL Normal 4.4-11.0 [facility] Comment on above: Performed By: #### L 100.0100, L500.2500 ####[facility] [address] [place], [address] Basic Metabolic Profile (BMP )on 10-19-2024 BUN/CRE 27.6 RATIO High 10-20 [facility] Comment on above: Performed By: #### L 501.5200, L501.2300, L100.0100, L500.2500 ####[facility] [address] [place], [address] CA,Total 8.7 mg/dL Normal 8.5-10.1 [facility] Comment on above: Performed By: #### L 501.5200, L501.2300, L100.0100, L500.2500 ####[facility] [address] [place], [address] Chloride [Moles/Vol] 111 mmol/L High 98-107 [facility] Comment on above: Performed By: #### L 501.5200, L501.2300, L100.0100, L500.2500 ####[facility] [address] [place], [address] CO2 [Moles/Vol] 22.0 mmol/L Normal 21.0-32.0 [facility] Comment on above: Performed By: #### L 501.5200, L501.2300, L100.0100, L500.2500 ####[facility] [address] [place], [address] Creatinine [Mass/Vol] 1.27 mg/dL High 0.55-1.02 [facility] Comment on above: Result Comment: The validity of the calculated GFR GFRAA in patients over70 years has not been determined. Clinical correlation isessential. Performed By: #### L 501.5200, L501.2300, L100.0100, L500.2500 ####[facility] [address] [place], [address] ECRCL 46.00 ml/min Normal [facility] Comment on above: Performed By: #### L 501.5200, L501.2300, L100.0100, L500.2500 ####[facility] [address] [place], [address] EST GFR - AA 53 mL/min Low >60 [facility] Comment on above: Result Comment: Afri can Sudanese GFR Calc Performed By: #### L 501.5200, L501.2300, L100.0100, L500.2500 ####[facility] [address] [place], [address] GAP 9 Normal 5-15 [facility] Comment on above: Performed By: #### L 501.5200, L501.2300, L100.0100, L500.2500 ####[facility] [address] [place], [address] GFR/1.73 sq M.predicted among non-blacks MDRD (S/P/Bld) [Vol rate/Area] 44 mL/min/{1.73_m2} Low >60 [facility] Comment on above: Result Comment: Non- GFR Calc Performed By: #### L 501.5200, L501.2300, L100.0100, L500.2500 ####[facility] [address] [place], [address] Glucose [Mass/Vol] 149 mg/dL High 74-106 [facility] Comment on above: Result Comment: Fast ing Glucose result greater than or equal to 126 mg/dLsuggests DIABETES MELLITUS per A.D.A. criteria. Performed By: #### L 501.5200, L501.2300, L100.0100, L500.2500 ####[facility] [address] [place], [address] Potassium [Moles/Vol] 4.4 mmol/L Normal 3.5-5.1 [facility] Comment on above: Performed By: #### L 501.5200, L501.2300, L100.0100, L500.2500 ####[facility] [address] [place], [address] Sodium [Moles/Vol] 142 mmol/L Normal 136-145 [facility] Comment on above: Performed By: #### L 501.5200, L501.2300, L100.0100, L500.2500 ####[facility] [address] [place], [address] Urea nitrogen [Mass/Vol] 35 mg/dL High 7-18 [facility] Comment on above: Performed By: #### L 501.5200, L501.2300, L100.0100, L500.2500 ####[facility] [address] [place], [address] Bedside Glucoseon 10-19-2024 FINGERSTICK GLU 134 mg/dL High 74-106 [facility] Comment on above: Result Comment: RONNIE GEMENT OF PATIENT CARE PER NURSING PROTOCOL Performed By: #### L 501.080 ####[facility] [address] [place], [address] FINGERSTICK GLU 150 mg/dL High 74-106 [facility] Comment on above: Result Comment: RONNIE GEMENT OF PATIENT CARE PER NURSING PROTOCOL Performed By: #### L 501.080 ####[facility] [address] [place], [address] FINGERSTICK GLU 177 mg/dL High 74-106 [facility] Comment on above: Result Comment: RONNIE GEMENT OF PATIENT CARE PER NURSING PROTOCOL Performed By: #### L 501.080 ####[facility] [address] [place], [address] FINGERSTICK GLU 145 mg/dL High 74-106 [facility] Comment on above: Result Comment: RONNIE GEMENT OF PATIENT CARE PER NURSING PROTOCOL Performed By: #### L 501.080 ####[facility] [address] [place], [address] CBC W/Diff, Automatedon Absolute Lymph 2.22 X10 3/uL Normal 0.83-4.51 [facility] Comment on above: Performed By: #### L 501.5200, L501.2300, L100.0100, L500.2500 ####[facility] [address] [place], [address] Absolute Neut 9.0 X10 3/uL High 2.0-7.7 [facility] Comment on above: Performed By: #### L 501.5200, L501.2300, L100.0100, L500.2500 ####[facility] [address] [place], [address] Basophils/100 WBC (Bld) 0.2 % Normal 0-1 [facility] Comment on above: Performed By: #### L 501.5200, L501.2300, L100.0100, L500.2500 ####[facility] [address] [place], [address] Eosinophils/100 WBC (Bld) 1.3 % Normal 0-5 [facility] Comment on above: Performed By: #### L 501.5200, L501.2300, L100.0100, L500.2500 ####[facility] [address] [place], [address] Erythrocyte distribution width (RBC) [Ratio] 14.9 % High 11.6-14.6 [facility] Comment on above: Performed By: #### L 501.5200, L501.2300, L100.0100, L500.2500 ####[facility] [address] [place], [address] Hematocrit (Bld) [Volume fraction] 32.4 % Low 37-47 [facility] Comment on above: Performed By: #### L 501.5200, L501.2300, L100.0100, L500.2500 ####[facility] [address] [place], [address] Hemoglobin (Bld) [Mass/Vol] 10.1 g/dL Low 12.0-15.0 [facility] Comment on above: Performed By: #### L 501.5200, L501.2300, L100.0100, L500.2500 ####[facility] [address] [place], [address] IG% 1.400 High 0.0-0.9 [facility] Comment on above: Result Comment: IG% - Immature Granulocytes (promyelocytes, myelocytes andmetamyelocytes) > 1% indicates that a LEFT SHIFT is Present. Performed By: #### L 501.5200, L501.2300, L100.0100, L500.2500 ####[facility] [address] [place], [address] Lymphocytes/100 WBC (Bld) 17.8 % Low 19-41 [facility] Comment on above: Performed By: #### L 501.5200, L501.2300, L100.0100, L500.2500 ####[facility] [address] [place], [address] MCH (RBC) [Entitic mass] 28.8 pg Normal 27.0-32.0 [facility] Comment on above: Performed By: #### L 501.5200, L501.2300, L100.0100, L500.2500 ####[facility] [address] [place], [address] MCHC (RBC) [Mass/Vol] 31.2 g/dL Low 32-36 [facility] Comment on above: Performed By: #### L 501.5200, L501.2300, L100.0100, L500.2500 ####[facility] [address] [place], [address] MCV (RBC) [Entitic vol] 92.3 fL Normal 81-99 [facility] Comment on above: Performed By: #### L 501.5200, L501.2300, L100.0100, L500.2500 ####[facility] [address] [place], [address] Monocytes/100 WBC (Bld) 7.5 % Normal 0-10 [facility] Comment on above: Performed By: #### L 501.5200, L501.2300, L100.0100, L500.2500 ####[facility] [address] [place], [address] Neutrophils/100 WBC (Bld) 71.8 % High 47-70 [facility] Comment on above: Performed By: #### L 501.5200, L501.2300, L100.0100, L500.2500 ####[facility] [address] [place], [address] Nucleated RBC (Bld) [#/Vol] 0.5 10*3/uL Normal 0-5 [facility] Comment on above: Performed By: #### L 501.5200, L501.2300, L100.0100, L500.2500 ####[facility] [address] [place], [address] Platelet mean volume (Bld) [Entitic vol] 9.3 fL Normal 6.2-12.0 [facility] Comment on above: Performed By: #### L 501.5200, L501.2300, L100.0100, L500.2500 ####[facility] [address] [place], [address] Platelets (Bld) [#/Vol] 337 10*3/uL Normal 150-450 [facility] Comment on above: Performed By: #### L 501.5200, L501.2300, L100.0100, L500.2500 ####[facility] [address] [place], [address] RBC (Bld) [#/Vol] 3.51 10*6/uL Low 4.2-5.4 [facility] Comment on above: Performed By: #### L 501.5200, L501.2300, L100.0100, L500.2500 ####[facility] [address] [place], [address] RDW SD 49.6 fl High 35.1-43.9 [facility] Comment on above: Performed By: #### L 501.5200, L501.2300, L100.0100, L500.2500 ####[facility] [address] [place], [address] WBC (Bld) [#/Vol] 12.5 10*3/uL High 4.4-11.0 [facility] Comment on above: Performed By: #### L 501.5200, L501.2300, L100.0100, L500.2500 ####[facility] [address] [place], [address] Magnesiumon 10-19-2024 Magnesium [Mass/Vol] 2.3 mg/dL Normal 1.6-2.6 [facility] Comment on above: Performed By: #### L 501.5200, L501.2300, L100.0100, L500.2500 ####[facility] [address] [place], [address] Magnesium measurementOrdered By: Girish Herrera on 10-19-2024 Magnesium [Mass/Vol] 2.3 mg/dL 1.6-2.6 [facility] Phosphoruson 10-19-2024 Phosphate [Mass/Vol] 2.7 mg/dL Normal 2.5-4.9 [facility] Comment on above: Performed By: #### L 501.5200, L501.2300, L100.0100, L500.2500 ####[facility] [address] [place], [address] Phosphorus measurementOrdere d By: Girish Herrera on 10-19-2024 Phosphorus Level 2.7 mg/dL 2.5-4.9 [facility] RESPIRATORY PANEL MOLECULARo n 10-19-2024 RP PANEL Normal [facility] Comment on above: Performed By: #### M 100.638 ####[facility] [address] [place], [place], [id number] 12 Lead EKGon 10-18-2024 12 Lead EKG Normal [facility] Albumin to globulin ratioOrd ered By: Mark Mcfarland on 10-18-2024 Albumin/Globulin [Mass ratio] 0.9 {ratio} 0.9-2.4 [facility] Amorphous sediment detection in urine sediment by light microscopyOrdered By: Girish Castro on 10-18-2024 Amorphous sediment LM Ql (Urine sed) 1+ [facility] Bedside Glucoseon 10-18-2024 FINGERSTICK GLU 166 mg/dL High 74-106 [facility] Comment on above: Result Comment: RONNIE VELAZQUEZ OF PATIENT CARE PER NURSING PROTOCOL Performed By: #### L 501.080 ####[facility] [address] [place], [place], [id number] Bilirubin Test strip Ql (U)O rdered By: Girish Castro on 10-18-2024 Bilirubin Ql (U) 1 mg/dL High Negative [facility] Comment on above: COLOR OF URINE MAY A FFECT DIPSTICK RESULTS. Bilirubin, totalOrdered By: Mark Mcfarland on 10-18-2024 Bilirubin [Mass/Vol] 0.60 mg/dL 0.20-1.00 [facility] Comment on above: For patients on eltr ombopag therapy, use of Dimension [place] TBIL is not recommended. Blood cultureOrdered By: Kirk Castro on 10-18-2024 Bacteria identified Cx Nom (Bld) No growth in 5 days. [facility] Chest without Contraston Chest without Contrast Normal [facility] Comprehensive Metabolic Prof ilon 10-18-2024 Albumin [Mass/Vol] 3.1 g/dL Low 3.2-5.0 [facility] Comment on above: Performed By: #### L 500.4050 ####[facility] [address] [place], [place], [id number] Albumin/Globulin [Mass ratio] 0.9 {ratio} Normal 0.9-2.4 [facility] Comment on above: Performed By: #### L 500.4050 ####[facility] [address] [place], [address] ALK P 74 U/L Normal 45-117 [facility] Comment on above: Performed By: #### L 500.4050 ####[facility] [address] [place], [address] ALT [Catalytic activity/Vol] 36 U/L Normal 13-56 [facility] Comment on above: Performed By: #### L 500.4050 ####[facility] [address] [place], [address] AST [Catalytic activity/Vol] 89 U/L High 15-37 [facility] Comment on above: Performed By: #### L 500.4050 ####[facility] [address] [place], [address] Bilirubin [Mass/Vol] 0.60 mg/dL Normal 0.20-1.00 [facility] Comment on above: Result Comment: For patients on eltrombopag therapy, use of Dimension [place] TBIL is not recommended. Performed By: #### L 500.4050 ####[facility] [address] [place], [address] BUN/CRE 32.2 RATIO High 10-20 [facility] Comment on above: Performed By: #### L 500.4050 ####[facility] [address] [place], [address] CA,Total 8.7 mg/dL Normal 8.5-10.1 [facility] Comment on above: Performed By: #### L 500.4050 ####[facility] [address] [place], [address] Chloride [Moles/Vol] 113 mmol/L High 98-107 [facility] Comment on above: Performed By: #### L 500.4050 ####[facility] [address] [place], [address] CO2 [Moles/Vol] 21.0 mmol/L Normal 21.0-32.0 [facility] Comment on above: Performed By: #### L 500.4050 ####[facility] [address] [place], [address] Creatinine [Mass/Vol] 1.46 mg/dL High 0.55-1.02 [facility] Comment on above: Result Comment: The validity of the calculated GFR GFRAA in patients over70 years has not been determined. Clinical correlation isessential. Performed By: #### L 500.4050 ####[facility] [address] [place], [address] ECRCL 39.42 ml/min Normal [facility] Comment on above: Performed By: #### L 500.4050 ####[facility] [address] [place], [address] EST GFR - AA 45 mL/min Low >60 [facility] Comment on above: Result Comment: Afri can Sudanese GFR Calc Performed By: #### L 500.4050 ####[facility] [address] [place], [address] GAP 9 Normal 5-15 [facility] Comment on above: Performed By: #### L 500.4050 ####[facility] [address] [place], [address] GFR/1.73 sq M.predicted among non-blacks MDRD (S/P/Bld) [Vol rate/Area] 37 mL/min/{1.73_m2} Low >60 [facility] Comment on above: Result Comment: Non- GFR Calc Performed By: #### L 500.4050 ####[facility] [address] [place], [address] Globulin (S) [Mass/Vol] 3.6 g/dL Normal 2.2-4.2 [facility] Comment on above: Performed By: #### L 500.4050 ####[facility] [address] [place], [address] Glucose [Mass/Vol] 248 mg/dL High 74-106 [facility] Comment on above: Result Comment: Gluc ose result greater than or equal to 200 mg/dLsuggests DIABETES MELLITUS per A.D.A. criteria. Performed By: #### L 500.4050 ####[facility] [address] [place], [address] Potassium [Moles/Vol] 5.1 mmol/L Normal 3.5-5.1 [facility] Comment on above: Performed By: #### L 500.4050 ####[facility] [address] [place], [address] Sodium [Moles/Vol] 143 mmol/L Normal 136-145 [facility] Comment on above: Performed By: #### L 500.4050 ####[facility] [address] [place], [address] T PROT 6.7 g/dL Normal 6.4-8.2 [facility] Comment on above: Performed By: #### L 500.4050 ####[facility] [address] [place], [address] Urea nitrogen [Mass/Vol] 47 mg/dL High 7-18 [facility] Comment on above: Performed By: #### L 500.4050 ####[facility] [address] [place], [address] Consultation - Cardiologyon 10-18-2024 Consultation - Cardiology Normal [facility] Consultation - Intensiviston 10-18-2024 Consultation - Fish Salter Normal [facility] D-Dimer Quantitative (DVT/PE )on 10-18-2024 D-DIMER QUANT 0.98 FEU/ug/m Invalid Interpretation Code 0.27-0.49 [facility] Comment on above: Order Comment: RESUL T(S) PREVIOUSLY REPORTED ON MANUAL REQUISITION DURINGDOWNTIME. Result Comment: D-Di olivia ELEVATED (>0.49): Additional studies and clinicalassessments are indicated to conclude diagnosis of:Deep Vein Thrombosis (DVT) or Pulmonary Embolism (PE)CRITICAL VALUE CALLED TO LEGVTETF26/04/24 0133 BY AYO CARVER.RESULTS READ BACK BY SAME. Performed By: #### M 200.1000, L501.4020, L501.9520, L300.8000, L300.3900, L300.4310 ####[facility] [address] [place], [place], [address] D-dimer measurement for deep venous thrombosisOrdered By: Girish Castro on 10-18-2024 D-Dimer Quantitative (PE/DVT) 0.98 FEU/ug/m High 0.27-0.49 [facility] Comment on above: D-Dimer ELEVATED (>0 .49): Additional studies and clinicalassessments are indicated to conclude diagnosis of:Deep Vein Thrombosis (DVT) or Pulmonary Embolism (PE)CRITICAL VALUE CALLED TO [place] [id number] 0133 BY AYO CARVER.RESULTS READ BACK BY SAME. Echo Complete W/ Contraston 10-18-2024 Echo Complete W/ Contrast Normal [facility] Epithelial cells.squamous LM Ql (Urine sed)Ordered By: Girish Castro on 10-18-2024 Epithelial cells.squamous LM.HPF (Urine sed) [#/Area] 0 /[HPF] 5-10 [facility] Glucose Ql (U)Ordered By: Octavio Castro on 10-18-2024 Glucose (U) [Mass/Vol] 50 mg/dL High Normal [facility] H AND P Exam - Hospitaliston 10-18-2024 H&P Exam - Hospitalist Normal [facility] International normalized rat io (INR) calculationOrdered By: Girish Castro on 10-18-2024 INR Coag (Bld) [Relative time] 1.1 {INR} [facility] Ketones Test strip Ql (U)Ord ered By: Girish Castro on 10-18-2024 Ketones Ql (U) 5 mg/dl High Negative [facility] L. pneumophila Ag Ql (U)Orde red By: Girish Castro on 10-18-2024 Legionella Antigen [facility] L501.4020on 10-18-2024 [place] [address] pg/mL Invalid Interpretation Code 3.0-54.0 [facility] Comment on above: Order Comment: 'TROP ' Serial specimen #1, #2 or #3: 4 Result Comment: Crit ical Result(s) Called at: 10:01:49 10/18/2024 by: Ramy to Evy Craig. Results read back by same. Please Note: New Test Units and Gender Specific Reference Ranges. For more information see Policy Stat Procedure [place] High Sensitivity Troponin (TNIH) and attachments. Performed By: #### L 501.4020 ####[facility] [address] [place], [address] [place] [address] pg/mL Invalid Interpretation Code 3.0-54.0 [facility] Comment on above: Order Comment: 'TROP ' Serial specimen #1, #2 or #3: 3 Result Comment: CRIT ICAL VALUE CALLED TO MILTON RODRIGUEZ10/18/24 0943 Bill Honey Reyes.RESULTS READ BACK BY SAME. Please Note: New Test Units and Gender Specific Reference Ranges. For more information see Policy Stat Procedure [place] High Sensitivity Troponin (TNIH) and attachments. Performed By: #### M 200.1000, L501.4020, L501.9520, L300.8000, L300.3900, L300.4310 ####[facility] [address] [place], [address] TROPONIN-I HS 1119 pg/mL Invalid Interpretation Code 3.0-54.0 [facility] Comment on above: Order Comment: 'TROP ' Serial specimen #1, #2 or #3: 2 Result Comment: Plea se Note: New Test Units and Gender Specific Reference Ranges. For more information see Policy Stat Procedure [place] High Sensitivity Troponin (TNIH) and attachments. Performed By: #### L 501.4020 ####[facility] [address] [place], [place], [id number] Laboratory - Chemistry and C hemistry - challengeOrdered By: Mark Mcfarland on 10-18-2024 AST [Catalytic activity/Vol] 89 U/L High 15-37 [facility] Lactic Acidon 10-18-2024 Lactate [Moles/Vol] 4.1 mmol/L Invalid Interpretation Code 0.4-1.9 [facility] Comment on above: Order Comment: RESUL T(S) PREVIOUSLY REPORTED ON MANUAL REQUISITION DURINGDOWNTIME.N Result Comment: CRIT ICAL VALUE CALLED TO NIDIA GRACIA10/18/24 0325 AYO CARVER.RESULTS READ BACK BY SAME. Performed By: #### L [phone] ####[facility] [address] [place], [address] Lactic acid measurementOrder ed By: Princess Cui on 10-18-2024 Lactate [Moles/Vol] 4.1 mmol/L High 0.4-2.0 [facility] Comment on above: CRITICAL VALUE CHAVARRIA D TO NIDIA GRACIA10/18/24 0325 AYO CARVER.RESULTS READ BACK BY SAME. Legionella Antigen Urineon 1 12-19-2023 LEGU Normal [facility] Comment on above: Performed By: #### L 400.0001, M300.4500, M300.4600 ####[facility] [address] [place], [place], [id number] M100.678on 10-18-2024 M100.678 Pending SARS-CoV-2 (COVID 19) Negative INFLUENZA A Negative INFLUENZA B Negative RSV PCR Negative Normal [facility] Comment on above: Performed By: #### M 100.678 ####[facility] [address] [place], [place], [id number] Microscopic analysis of urin e for red blood cells (RBC)Ordered By: Girish Castro on 10-18-2024 Urine RBC 0 SEEN /hpf 0-5 [facility] Mucus LM Ql (Urine sed)Order ed By: Girish Castro on 10-18-2024 Mucus Ql (Urine sed) 0 SEEN /hpf [facility] Nitrite Test strip Ql (U)Ord ered By: Girish Castro on 10-18-2024 Nitrite Ql (U) Negative Negative [facility] Partial Thromboplast Timeon 10-18-2024 aPTT Coag (Bld) [Time] 50.4 s High 24.1-36.2 [facility] Comment on above: Performed By: #### L 300.4310 ####[facility] [address] [place], [address] aPTT Coag (Bld) [Time] 21.6 s Low 24.1-36.2 [facility] Comment on above: Order Comment: RESUL T(S) PREVIOUSLY REPORTED ON MANUAL REQUISITION DURINGDOWNTIME. Performed By: #### M 200.1000, L501.4020, L501.9520, L300.8000, L300.3900, L300.4310 ####[facility] [address] [place], [address] Protein Test strip Ql (U)Ord ered By: Girish Castro on 10-18-2024 Protein Ql (U) 100 mg/dl High Negative [facility] Prothrombin Time w/INRon INR Coag (PPP) [Relative time] 1.1 {INR} Normal [facility] Comment on above: Order Comment: RESUL T(S) PREVIOUSLY REPORTED ON MANUAL REQUISITION DURINGDOWNTIME. Performed By: #### M 200.1000, L501.4020, L501.9520, L300.8000, L300.3900, L300.4310 ####[facility] [address] [place], [address] PT Coag (PPP) [Time] 13.8 s Normal 11.7-14.9 [facility] Comment on above: Order Comment: RESUL T(S) PREVIOUSLY REPORTED ON MANUAL REQUISITION DURINGDOWNTIME. Performed By: #### M 200.1000, L501.4020, L501.9520, L300.8000, L300.3900, L300.4310 ####[facility] [address] [place], [address] Prothrombin timeOrdered By: Girish Castro on 10-18-2024 PT Coag (PPP) [Time] 13.8 s 11.7-14.9 [facility] Respiratory pathogens DNA an d RNA panel KATYA+probe (Resp)Ordered By: Mark Mcfarland on 10-18-2024 Respiratory Panel (PCR) [facility] Serum globulin measurementOr dered By: Mark Mcfarland on 10-18-2024 Globulin (S) [Mass/Vol] 3.6 g/dL 2.2-4.2 [facility] Serum or plasma alanine price otransferase (ALT) measurementOrdered By: Mark Mcfarland on 10-18-2024 ALT [Catalytic activity/Vol] 36 U/L 13-56 [facility] Serum or plasma albumin ras urement (mass/volume)Ordered By: Mark Mcfarland on 10-18-2024 Albumin [Mass/Vol] 3.1 g/dL Low 3.2-5.0 [facility] Serum or plasma alkaline destini sphatase measurementOrdered By: Mark Mcfarland on 10-18-2024 ALP [Catalytic activity/Vol] 74 U/L 45-117 [facility] Strep pneumoniae Antig(UR,CS F)on 10-18-2024 STPAG Normal [facility] Comment on above: Performed By: #### L 400.0001, M300.4500, M300.4600 ####[facility] [address] [place], [address] Streptococcus pneumoniae ant igen assayOrdered By: Girish Castro on 10-18-2024 Streptococcus pneumoniae Antigen (M [facility] TSH QnOrdered By: Girish solano on 10-18-2024 Thyroid Stimulating Hormone (TSH) 0.224 uIU/mL Low 0.358-3.740 [facility] Thyroid Stim Hormone (TSH)on 10-18-2024 TSH 0.224 uIU/mL Low 0.358-3.740 [facility] Comment on above: Order Comment: 'TROP ' Serial specimen #1, #2 or #3: 3 Performed By: #### M 200.1000, L501.4020, L501.9520, L300.8000, L300.3900, L300.4310 ####[facility] [address] [place], [address] Total proteinOrdered By: Michel on 10-18-2024 Protein [Mass/Vol] 6.7 g/dL 6.4-8.2 [facility] Transitional cells LM Ql (Ur ine sed)Ordered By: Girish Castor on 10-18-2024 Urine Transitional Epithelial Cells 5-10 SEEN /hpf 0-5 [facility] Troponin IOrdered By: Ziggy Ramirez on 10-18-2024 Troponin I High Sensitivity 71820 pg/mL High 3.0-54.0 [facility] Comment on above: Critical Result(s) C alled at: 10:01:49 10/18/2024 by: Erica De León to Evy Craig. Results read back by same. Please Note: New Test Units and Gender Specific Reference Ranges. For more information see Policy Stat Procedure [place] High Sensitivity Troponin (TNIH) and attachments. Urinalysis, Completeon 10-18 AMORPHOUS 1+ Normal [facility] Comment on above: Order Comment: COLLE CTOR TO SPECIFY Performed By: #### L 400.0001, M300.4500, M300.4600 ####[facility] [address] [place], [address] BACTERIA 2+ /hpf Normal None Seen [facility] Comment on above: Order Comment: COLLE CTOR TO SPECIFY Performed By: #### L 400.0001, M300.4500, M300.4600 ####[facility] [address] [place], [address] EPI,TRANSITION 5-10 SEEN Normal 0-5 [facility] Comment on above: Order Comment: COLLE CTOR TO SPECIFY Performed By: #### L 400.0001, M300.4500, M300.4600 ####[facility] [address] [place], [address] WBC 10-25 SEEN Normal 0-5 [facility] Comment on above: Order Comment: COLLE CTOR TO SPECIFY Performed By: #### L 400.0001, M300.4500, M300.4600 ####[facility] [address] [place], [address] BILIRUBIN URINE 1 mg/dL Abnormal Negative [facility] Comment on above: Order Comment: COLLE CTOR TO SPECIFY Result Comment: COLO R OF URINE MAY AFFECT DIPSTICK RESULTS. Performed By: #### L 400.0001, M300.4500, M300.4600 ####[facility] [address] [place], [address] Clarity (U) Cloudy Normal Clear [facility] Comment on above: Order Comment: [facility] CTOR TO SPECIFY Performed By: #### L 400.0001, M300.4500, M300.4600 ####[facility] [address] [place], [address] Color (U) Yellow Normal Yellow [facility] Comment on above: Order Comment: [facility] CTOR TO SPECIFY Performed By: #### L 400.0001, M300.4500, M300.4600 ####[facility] [address] [place], [address] GLUCOSE, UR 50 mg/dl Abnormal Normal [facility] Comment on above: Order Comment: [facility] CTOR TO SPECIFY Performed By: #### L 400.0001, M300.4500, M300.4600 ####[facility] [address] [place], [address] KETONE UR 5 mg/dl Abnormal Negative [facility] Comment on above: Order Comment: [facility] CTOR TO SPECIFY Performed By: #### L 400.0001, M300.4500, M300.4600 ####[facility] [address] [place], [address] LEUK ESTERASE 25 /ul Abnormal Negative [facility] Comment on above: Order Comment: COLLE CTOR TO SPECIFY Performed By: #### L 400.0001, M300.4500, M300.4600 ####[facility] [address] [place], [address] Nitrite Ql (U) Negative Normal Negative [facility] Comment on above: Order Comment: COLLE CTOR TO SPECIFY Performed By: #### L 400.0001, M300.4500, M300.4600 ####[facility] [address] [place], [address] OCCULT BLOOD-UR Negative Normal Negative [facility] Comment on above: Order Comment: RONNI CTOR TO SPECIFY Performed By: #### L 400.0001, M300.4500, M300.4600 ####[facility] [address] [place], [address] pH UR 5.0 Normal 5.0 - 8.0 [facility] Comment on above: Order Comment: RONNI CTOR TO SPECIFY Performed By: #### L 400.0001, M300.4500, M300.4600 ####[facility] [address] [place], [address] PROT DIPSTX 100 mg/dl Abnormal Negative [facility] Comment on above: Order Comment: COLLE CTOR TO SPECIFY Performed By: #### L 400.0001, M300.4500, M300.4600 ####[facility] [address] [place], [address] SP.GR. DIPSTX 1.025 Normal 1.002-1.030 [facility] Comment on above: Order Comment: RONNI CTOR TO SPECIFY Performed By: #### L 400.0001, M300.4500, M300.4600 ####[facility] [address] [place], [address] UROBILI 1 mg/dl Abnormal Normal [facility] Comment on above: Order Comment: RONNI CTOR TO SPECIFY Performed By: #### L 400.0001, M300.4500, M300.4600 ####[facility] [address] [place], [address] EPI,SQUAMOUS 0 SEEN Normal 5-10 [facility] Comment on above: Order Comment: RONNI CTOR TO SPECIFY Performed By: #### L 400.0001, M300.4500, M300.4600 ####[facility] [address] [place], [address] Mucus Ql (Urine sed) 0 SEEN Normal [facility] Comment on above: Order Comment: RONNI CTOR TO SPECIFY Performed By: #### L 400.0001, M300.4500, M300.4600 ####[facility] [address] [place], [address] RBC 0 SEEN Normal 0-5 [facility] Comment on above: Order Comment: RONNI CTOR TO SPECIFY Performed By: #### L 400.0001, M300.4500, M300.4600 ####[facility] [address] [place], [address] Urine blood detectionOrdered By: Girish Castro on 10-18-2024 Urine Occult Blood Negative Negative [facility] Urine clarityOrdered By: Kirk Castro on 10-18-2024 Clarity (U) Cloudy Clear [facility] Urine color determinationOrd ered By: Girish Castro on 10-18-2024 Color (U) Yellow Yellow [facility] Urine leukocyte esterase det ection by dipstickOrdered By: Girish Castro on 10-18-2024 Leukocyte esterase Test strip Ql (U) 25 /ul High Negative [facility] Urine pHOrdered By: Girish esposito on 10-18-2024 pH (U) 5.0 [pH] 5.0 - 8.0 [facility] Urine sediment bacteria coun t by microscopy (number/high power field)Ordered By: Girish Castro on 10-18-2024 Bacteria LM.HPF (Urine sed) [#/Area] 2 /[HPF] None Seen [facility] Urine specific gravity measu rementOrdered By: Girish Castro on 10-18-2024 Specific gravity (U) [Rel density] 1.025 1.002-1.030 [facility] Urobilinogen Ql (U)Ordered B y: Girish Castro on 10-18-2024 Urobilinogen (U) [Mass/Vol] 1 mg/dL High Normal [facility] White blood cell countOrdere d By: Girish Castro on 10-18-2024 Urine WBC 10-25 SEEN /hpf 0-5 [facility] aPTT Coag (PPP) [Time]Ordere d By: Girish Castro on 10-18-2024 aPTT Coag (Bld) [Time] 50.4 s High 24.1-36.2 [facility] 12 Lead EKGon 10-17-2024 12 Lead EKG Normal [facility] Arterial patency Wrist arter y --pre arterial punctureOrdered By: Princess Cui on 10-17-2024 Carmine Test Positive [facility] BNP (brain natriuretic pepti de measurement)Ordered By: Princess Cui on 10-17-2024 Natriuretic peptide B (Bld) [Mass/Vol] 799.9 pg/mL High 0-100 [facility] BNP,B-Type NATRIURETIC PEPTI Ting 10-17-2024 Natriuretic peptide B (Bld) [Mass/Vol] 799.9 pg/mL High 0-100 [facility] Comment on above: Performed By: #### L 503.6620 ####[facility] [address] [place], [address] Base excess Calc (BldV) [Mol es/Vol]Ordered By: Princess Cui on 10-17-2024 Blood Gas Base Excess -8 mmol/L Low -2-2 [facility] Basic Metabolic Profile (BMP )on 10-17-2024 BUN/CRE 27.5 RATIO High 10-20 [facility] Comment on above: Order Comment: 'TROP ' Serial specimen #1, #2 or #3: 1 Performed By: #### L 500.3400, L501.4020, L500.2500 ####[facility] [address] [place], [address] CA,Total 9.0 mg/dL Normal 8.5-10.1 [facility] Comment on above: Order Comment: 'TROP ' Serial specimen #1, #2 or #3: 1 Performed By: #### L 500.3400, L501.4020, L500.2500 ####[facility] [address] [place], [address] Chloride [Moles/Vol] 111 mmol/L High 98-107 [facility] Comment on above: Order Comment: 'TROP ' Serial specimen #1, #2 or #3: 1 Performed By: #### L 500.3400, L501.4020, L500.2500 ####[facility] [address] [place], [address] CO2 [Moles/Vol] 20.0 mmol/L Low 21.0-32.0 [facility] Comment on above: Order Comment: 'TROP ' Serial specimen #1, #2 or #3: 1 Performed By: #### L 500.3400, L501.4020, L500.2500 ####[facility] [address] [place], [address] Creatinine [Mass/Vol] 1.71 mg/dL High 0.55-1.02 [facility] Comment on above: Order Comment: 'TROP ' Serial specimen #1, #2 or #3: 1 Result Comment: The validity of the calculated GFR GFRAA in patients over70 years has not been determined. Clinical correlation isessential. Performed By: #### L 500.3400, L501.4020, L500.2500 ####[facility] [address] [place], [address] ECRCL 34.85 ml/min Normal [facility] Comment on above: Order Comment: 'TROP ' Serial specimen #1, #2 or #3: 1 Performed By: #### L 500.3400, L501.4020, L500.2500 ####[facility] [address] [place], [address] EST GFR - AA 38 mL/min Low >60 [facility] Comment on above: Order Comment: 'TROP ' Serial specimen #1, #2 or #3: 1 Result Comment: Afri can Sudanese GFR Calc Performed By: #### L 500.3400, L501.4020, L500.2500 ####[facility] [address] [place], [address] GAP 11 Normal 5-15 [facility] Comment on above: Order Comment: 'TROP ' Serial specimen #1, #2 or #3: 1 Performed By: #### L 500.3400, L501.4020, L500.2500 ####[facility] [address] [place], [address] GFR/1.73 sq M.predicted among non-blacks MDRD (S/P/Bld) [Vol rate/Area] 31 mL/min/{1.73_m2} Low >60 [facility] Comment on above: Order Comment: 'TROP ' Serial specimen #1, #2 or #3: 1 Result Comment: Non- GFR Calc Performed By: #### L 500.3400, L501.4020, L500.2500 ####[facility] [address] [place], [address] Glucose [Mass/Vol] 405 mg/dL High 74-106 [facility] Comment on above: Order Comment: 'TROP ' Serial specimen #1, #2 or #3: 1 Result Comment: Gluc ose result greater than or equal to 200 mg/dLsuggests DIABETES MELLITUS per A.D.A. criteria. Performed By: #### L 500.3400, L501.4020, L500.2500 ####[facility] [address] [place], [address] Potassium [Moles/Vol] 5.4 mmol/L High 3.5-5.1 [facility] Comment on above: Order Comment: 'TROP ' Serial specimen #1, #2 or #3: 1 Performed By: #### L 500.3400, L501.4020, L500.2500 ####[facility] [address] [place], [address] Sodium [Moles/Vol] 142 mmol/L Normal 136-145 [facility] Comment on above: Order Comment: 'TROP ' Serial specimen #1, #2 or #3: 1 Performed By: #### L 500.3400, L501.4020, L500.2500 ####[facility] [address] [place], [address] Urea nitrogen [Mass/Vol] 47 mg/dL High 7-18 [facility] Comment on above: Order Comment: 'TROP ' Serial specimen #1, #2 or #3: 1 Performed By: #### L 500.3400, L501.4020, L500.2500 ####[facility] [address] [place], [address] Bilirubin directOrdered By: Princess Cui on 10-17-2024 Bilirubin.direct [Mass/Vol] 0.22 mg/dL 0.00-0.30 [facility] CARMINE TEST Positive Normal [facility] Comment on above: Performed By: #### L 9000.0800 ####[facility] [address] [place], [address] Base excess Calc (Bld) [Moles/Vol] -8 mmol/L Low -2 to +2 [facility] Comment on above: Performed By: #### L 9000.0800 ####[facility] [address] [place], [address] Blood Gas Type ART Normal [facility] Comment on above: Performed By: #### L 9000.0800 ####[facility] [address] [place], [address] CO2 [Moles/Vol] 20 mmol/L Normal [facility] Comment on above: Performed By: #### L 9000.0800 ####[facility] [address] [place], [address] Comment 14/6 14 40% Normal [facility] Comment on above: Performed By: #### L 9000.0800 ####[facility] [address] [place], [address] FI02 40.0 Normal [facility] Comment on above: Performed By: #### L 9000.0800 ####[facility] [address] [place], [address] HCO3 (Bld) [Moles/Vol] 19.1 mmol/L Low 22-26 [facility] Comment on above: Performed By: #### L 9000.0800 ####[facility] [address] [place], [address] Mode NIV Normal [facility] Comment on above: Performed By: #### L 9000.0800 ####[facility] [address] [place], [address] O2 Delivery Dev BiPAP Normal [facility] Comment on above: Performed By: #### L 9000.0800 ####[facility] [address] [place], [address] pCO2 44.7 mmHg Normal 35-45 [facility] Comment on above: Performed By: #### L 9000.0800 ####[facility] [address] [place], [address] pH (Bld) 7.24 [pH] Low 7.35-7.45 [facility] Comment on above: Performed By: #### L 9000.0800 ####[facility] [address] [place], [address] PO2 84 mmHG Normal 75-100 [facility] Comment on above: Performed By: #### L 9000.0800 ####[facility] [address] [place], [address] RR 14 Normal [facility] Comment on above: Performed By: #### L 9000.0800 ####[facility] [address] [place], [address] SITE L Radial Normal [facility] Comment on above: Performed By: #### L 9000.0800 ####[facility] [address] [place], [address] SO2 94 Low 95-99 [facility] Comment on above: Performed By: #### L 9000.0800 ####[facility] [address] [place], [address] Blood bicarbonate measuremen tOrdered By: Princess Cui on 10-17-2024 Blood Gas Bicarbonate Actual 19.1 mmol/L Low 22-26 [facility] Blood cultureOrdered By: Kirk Castro on 10-17-2024 Bacteria identified Cx Nom (Bld) No growth in 5 days. [facility] CBC W/Diff, Automatedon 12-0 Absolute Lymph 1.93 X10 3/uL Normal 0.83-4.51 [facility] Comment on above: Performed By: #### L 503.6005, L100.0100 ####[facility] [address] [place], [address] Absolute Neut 14.8 X10 3/uL High 2.0-7.7 [facility] Comment on above: Performed By: #### L 503.6005, L100.0100 ####[facility] [address] [place], [address] Basophils/100 WBC (Bld) 0.3 % Normal 0-1 [facility] Comment on above: Performed By: #### L 503.6005, L100.0100 ####[facility] [address] [place], [address] Eosinophils/100 WBC (Bld) 0.0 % Normal 0-5 [facility] Comment on above: Performed By: #### L 503.6005, L100.0100 ####[facility] [address] [place], [address] Erythrocyte distribution width (RBC) [Ratio] 14.7 % High 11.6-14.6 [facility] Comment on above: Performed By: #### L 503.6005, L100.0100 ####[facility] [address] [place], [address] Hematocrit (Bld) [Volume fraction] 38.5 % Normal 37-47 [facility] Comment on above: Performed By: #### L 503.6005, L100.0100 ####[facility] [address] [place], [address] Hemoglobin (Bld) [Mass/Vol] 11.8 g/dL Low 12.0-15.0 [facility] Comment on above: Performed By: #### L 503.6005, L100.0100 ####[facility] [address] [place], [address] IG% 2.600 High 0.0-0.9 [facility] Comment on above: Result Comment: IG% - Immature Granulocytes (promyelocytes, myelocytes andmetamyelocytes) > 1% indicates that a LEFT SHIFT is Present. Performed By: #### L 503.6005, L100.0100 ####[facility] [address] [place], [address] Lymphocytes/100 WBC (Bld) 10.9 % Low 19-41 [facility] Comment on above: Performed By: #### L 503.6005, L100.0100 ####[facility] [address] [place], [address] MCH (RBC) [Entitic mass] 28.8 pg Normal 27.0-32.0 [facility] Comment on above: Performed By: #### L 503.6005, L100.0100 ####[facility] [address] [place], [address] MCHC (RBC) [Mass/Vol] 30.6 g/dL Low 32-36 [facility] Comment on above: Performed By: #### L 503.6005, L100.0100 ####[facility] [address] [place], [address] MCV (RBC) [Entitic vol] 93.9 fL Normal 81-99 [facility] Comment on above: Performed By: #### L 503.6005, L100.0100 ####[facility] [address] [place], [address] Monocytes/100 WBC (Bld) 2.8 % Normal 0-10 [facility] Comment on above: Performed By: #### L 503.6005, L100.0100 ####[facility] [address] [place], [address] Neutrophils/100 WBC (Bld) 83.4 % High 47-70 [facility] Comment on above: Performed By: #### L 503.6005, L100.0100 ####[facility] [address] [place], [address] Nucleated RBC (Bld) [#/Vol] 0.6 10*3/uL Normal 0-5 [facility] Comment on above: Performed By: #### L 503.6005, L100.0100 ####[facility] [address] [place], [address] Platelet mean volume (Bld) [Entitic vol] 9.2 fL Normal 6.2-12.0 [facility] Comment on above: Performed By: #### L 503.6005, L100.0100 ####[facility] [address] [place], [address] Platelets (Bld) [#/Vol] 469 10*3/uL High 150-450 [facility] Comment on above: Performed By: #### L 503.6005, L100.0100 ####[facility] [address] [place], [address] RBC (Bld) [#/Vol] 4.10 10*6/uL Low 4.2-5.4 [facility] Comment on above: Performed By: #### L 503.6005, L100.0100 ####[facility] [address] [place], [address] RDW SD 50.4 fl High 35.1-43.9 [facility] Comment on above: Performed By: #### L 503.6005, L100.0100 ####[facility] [address] [place], [address] WBC (Bld) [#/Vol] 17.7 10*3/uL High 4.4-11.0 [facility] Comment on above: Performed By: #### L 503.6005, L100.0100 ####[facility] [address] [place], [address] Chest 1 View (Portable)on Chest 1 View (Portable) Normal [facility] Determination of fraction of inspired oxygenOrdered By: Princess Cui on 10-17-2024 Blood Gas Oxygen Percent 40.0 [facility] Emergency Department Summary on 10-17-2024 Emergency Department Summary Normal [facility] Influenza virus A and B and SARS-CoV-2 (COVID-19) and Respiratory syncytial virus RNAOrdered By: Princess Cui on 10-17-2024 SARS-CoV-2 (COVID-19) RNA KATYA+probe Ql (Unsp spec) [facility] L501.4020on 10-17-2024 TROPONIN-I HS 1103 pg/mL Invalid Interpretation Code 3.0-54.0 [facility] Comment on above: Order Comment: 'TROP ' Serial specimen #1, #2 or #3: 1 Result Comment: Crit ical Result(s) Called at: 23:31:06 10/17/2024 by:Elmira Marks to LSparr. Results read back by same. Please Note: New Test Units and Gender Specific Reference Ranges. For more information see Policy Stat Procedure [place] High Sensitivity Troponin (TNIH) and attachments. Performed By: #### L 500.3400, L501.4020, L500.2500 ####[facility] [address] [place], [address] Lactic Acidon 10-17-2024 Lactate [Moles/Vol] 4.9 mmol/L Invalid Interpretation Code 0.4-1.9 [facility] Comment on above: Order Comment: Y Result Comment: Crit ical Result(s) Called at: 23:30:50 10/17/2024 by:Elmira Marks to LSparr. Results read back by same. Performed By: #### L 503.6005, L100.0100 ####[facility] [address] [place], [address] Liver Profileon 10-17-2024 Albumin [Mass/Vol] 3.8 g/dL Normal 3.2-5.0 [facility] Comment on above: Order Comment: 'TROP ' Serial specimen #1, #2 or #3: 1 Performed By: #### L 500.3400, L501.4020, L500.2500 ####[facility] [address] [place], [address] ALK P 91 U/L Normal 45-117 [facility] Comment on above: Order Comment: 'TROP ' Serial specimen #1, #2 or #3: 1 Performed By: #### L 500.3400, L501.4020, L500.2500 ####[facility] [address] [place], [address] ALT [Catalytic activity/Vol] 33 U/L Normal 13-56 [facility] Comment on above: Order Comment: 'TROP ' Serial specimen #1, #2 or #3: 1 Performed By: #### L 500.3400, L501.4020, L500.2500 ####[facility] [address] [place], [address] AST [Catalytic activity/Vol] 27 U/L Normal 15-37 [facility] Comment on above: Order Comment: 'TROP ' Serial specimen #1, #2 or #3: 1 Performed By: #### L 500.3400, L501.4020, L500.2500 ####[facility] [address] [place], [address] Bilirubin [Mass/Vol] 0.50 mg/dL Normal 0.20-1.00 [facility] Comment on above: Order Comment: 'TROP ' Serial specimen #1, #2 or #3: 1 Result Comment: For patients on eltrombopag therapy, use of Dimension [place] TBIL is not recommended. Performed By: #### L 500.3400, L501.4020, L500.2500 ####[facility] [address] [place], [address] Bilirubin.direct [Mass/Vol] 0.22 mg/dL Normal 0.00-0.30 [facility] Comment on above: Order Comment: 'TROP ' Serial specimen #1, #2 or #3: 1 Performed By: #### L 500.3400, L501.4020, L500.2500 ####[facility] [address] [place], [address] Globulin (S) [Mass/Vol] 4.1 g/dL Normal 2.2-4.2 [facility] Comment on above: Order Comment: 'TROP ' Serial specimen #1, #2 or #3: 1 Performed By: #### L 500.3400, L501.4020, L500.2500 ####[facility] [address] [place], [place], [id number] T PROT 7.9 g/dL Normal 6.4-8.2 [facility] Comment on above: Order Comment: 'TROP ' Serial specimen #1, #2 or #3: 1 Performed By: #### L 500.3400, L501.4020, L500.2500 ####[facility] [address] [place], [place], [id number] No Panel InformationOrdered By: Princess Cui on 10-17-2024 Blood Gas Clinical Comments 28/04 14 40% [facility] Blood Gas Respiration Rate 14 [facility] Blood Gas Sample Site L Radial [facility] Blood Gas Specimen Type ART [facility] Blood Gas Vent Mode NIV [facility] Oxygen Delivery Device BiPAP [facility] Oxygen saturation measuremen tOrdered By: Princess Cui on 10-17-2024 Blood Gas Oxygen Saturation 94 % Low 95-99 [facility] Partial pressure of carbon d ioxide measurementOrdered By: Princess Cui on 10-17-2024 Arterial Blood Partial Pressure CO2 44.7 mmHg 35-45 [facility] Partial pressure of oxygen m easurementOrdered By: Princess Cui on 10-17-2024 Arterial Blood Partial Pressure O2 84 mmHG 75-100 [facility] Total carbon dioxide measure mentOrdered By: Princess Cui on 10-17-2024 Blood Gas Total CO2 20 mmol/L [facility] pH (Unsp spec)Ordered By: Octavio Cui on 10-17-2024 Blood Gas pH 7.24 Low 7.35-7.45 [facility] Absolute neutrophil countOrd ered By: Kenan White on 10-13-2024 Neutrophils (Bld) [#/Vol] 9.2 10*3/uL High 2.0-7.7 [facility] Basophil percentageOrdered B y: Kenan White on 10-13-2024 Basophils/100 WBC (Bld) 0.4 % 0-1 [facility] CBC W/Diff, Automatedon 09-16 Absolute Lymph 1.98 X10 3/uL Normal 0.83-4.51 [facility] Comment on above: Performed By: #### L 100.0100 ####[facility] [address] [place], [address] Absolute Neut 9.2 X10 3/uL High 2.0-7.7 [facility] Comment on above: Performed By: #### L 100.0100 ####[facility] [address] [place], [address] Basophils/100 WBC (Bld) 0.4 % Normal 0-1 [facility] Comment on above: Performed By: #### L 100.0100 ####[facility] [address] [place], [address] Eosinophils/100 WBC (Bld) 0.6 % Normal 0-5 [facility] Comment on above: Performed By: #### L 100.0100 ####[facility] [address] [place], [address] Erythrocyte distribution width (RBC) [Ratio] 13.9 % Normal 11.6-14.6 [facility] Comment on above: Performed By: #### L 100.0100 ####[facility] [address] [place], [address] Hematocrit (Bld) [Volume fraction] 37.5 % Normal 37-47 [facility] Comment on above: Performed By: #### L 100.0100 ####[facility] [address] [place], [address] Hemoglobin (Bld) [Mass/Vol] 11.4 g/dL Low 12.0-15.0 [facility] Comment on above: Performed By: #### L 100.0100 ####[facility] [address] [place], [address] IG% 0.700 Normal 0.0-0.9 [facility] Comment on above: Result Comment: IG% - Immature Granulocytes (promyelocytes, myelocytes andmetamyelocytes) > 1% indicates that a LEFT SHIFT is Present. Performed By: #### L 100.0100 ####[facility] [address] [place], [address] Lymphocytes/100 WBC (Bld) 16.3 % Low 19-41 [facility] Comment on above: Performed By: #### L 100.0100 ####[facility] [address] [place], [address] MCH (RBC) [Entitic mass] 28.1 pg Normal 27.0-32.0 [facility] Comment on above: Performed By: #### L 100.0100 ####[facility] [address] [place], [address] MCHC (RBC) [Mass/Vol] 30.4 g/dL Low 32-36 [facility] Comment on above: Performed By: #### L 100.0100 ####[facility] [address] [place], [address] MCV (RBC) [Entitic vol] 92.4 fL Normal 81-99 [facility] Comment on above: Performed By: #### L 100.0100 ####[facility] [address] [place], [address] Monocytes/100 WBC (Bld) 6.3 % Normal 0-10 [facility] Comment on above: Performed By: #### L 100.0100 ####[facility] [address] [place], [address] Neutrophils/100 WBC (Bld) 75.7 % High 47-70 [facility] Comment on above: Performed By: #### L 100.0100 ####[facility] [address] [place], [address] Nucleated RBC (Bld) [#/Vol] 0 10*3/uL Normal 0-5 [facility] Comment on above: Performed By: #### L 100.0100 ####[facility] [address] [place], [address] Platelet mean volume (Bld) [Entitic vol] 9.2 fL Normal 6.2-12.0 [facility] Comment on above: Performed By: #### L 100.0100 ####[facility] [address] [place], [address] Platelets (Bld) [#/Vol] 375 10*3/uL Normal 150-450 [facility] Comment on above: Performed By: #### L 100.0100 ####[facility] [address] [place], [address] RBC (Bld) [#/Vol] 4.06 10*6/uL Low 4.2-5.4 [facility] Comment on above: Performed By: #### L 100.0100 ####[facility] [address] [place], [address] RDW SD 46.9 fl High 35.1-43.9 [facility] Comment on above: Performed By: #### L 100.0100 ####[facility] [address] [place], [address] WBC (Bld) [#/Vol] 12.2 10*3/uL High 4.4-11.0 [facility] Comment on above: Performed By: #### L 100.0100 ####[facility] [address] [place], [address] Chest PA and Lateralon 10-13 Chest PA and Lateral Normal [facility] Eosinophil percentageOrdered By: Kenan White on 10-13-2024 Eosinophils/100 WBC (Bld) 0.6 % 0-5 [facility] Erythrocyte distribution wid th ratioOrdered By: Kenan White on 10-13-2024 Erythrocyte distribution width (RBC) [Ratio] 13.9 % 11.6-14.6 [facility] Erythrocyte distribution wid th standard deviationOrdered By: Kenan White on 10-13-2024 Erythrocyte distribution width (RBC) [Entitic vol] 46.9 fL High 35.1-43.9 [facility] Hematocrit Auto (Bld) [Volum e fraction]Ordered By: Kenan White on 10-13-2024 Hematocrit (Bld) [Volume fraction] 37.5 % 37-47 [facility] Hemoglobin measurementOrdere d By: Kenan White on 10-13-2024 Hemoglobin (Bld) [Mass/Vol] 11.4 g/dL Low 12.0-15.0 [facility] Immature granulocytes/100 WB C Auto (Bld)Ordered By: Kenan White on 10-13-2024 Immature granulocytes/100 WBC (Bld) 0.700 % 0.0-0.9 [facility] Comment on above: IG% - Immature Granu locytes (promyelocytes, myelocytes and metamyelocytes) > 1% indicates that a LEFT SHIFT is Present. Lymphocytes Auto (Unsp spec) [#/Vol]Ordered By: Kenan White on 10-13-2024 Lymphocytes (Bld) [#/Vol] 1.98 10*3/uL 0.83-4.51 [facility] Lymphocytes/100 WBC Auto (Un sp spec)Ordered By: Kenan White on 10-13-2024 Lymphocytes/100 WBC (Bld) 16.3 % Low 19-41 [facility] MCV (mean corpuscular volume ) determinationOrdered By: Kenan White on 10-13-2024 MCV (RBC) [Entitic vol] 92.4 fL 81-99 [facility] Mean corpuscular hemoglobin (MCH) determinationOrdered By: Kenan White on 10-13-2024 MCH (RBC) [Entitic mass] 28.1 pg 27.0-32.0 [facility] Mean corpuscular hemoglobin concentration (MCHC) determinationOrdered By: Kenan White on 10-13-2024 MCHC (RBC) [Mass/Vol] 30.4 g/dL Low 32-36 [facility] Mean platelet volume determi nationOrdered By: Kenan White on 10-13-2024 Platelet mean volume (Bld) [Entitic vol] 9.2 fL 6.2-12.0 [facility] Monocyte percentageOrdered B y: Kenan White on 10-13-2024 Monocytes/100 WBC (Bld) 6.3 % 0-10 [facility] Neutrophil percentageOrdered By: Kenan White on 10-13-2024 Neutrophils/100 WBC (Bld) 75.7 % High 47-70 [facility] Nucleated red blood cell per centageOrdered By: Kenan White on 10-13-2024 Nucleated RBC/100 WBC (Bld) [Ratio] 0 % 0-5 [facility] Platelet countOrdered By: Tasneem White on 10-13-2024 Platelets (Bld) [#/Vol] 375 10*3/uL 150-450 [facility] RBC Auto (Bld) [#/Vol]Ordere d By: Kenan White on 10-13-2024 RBC (Bld) [#/Vol] 4.06 10*6/uL Low 4.2-5.4 [facility] White blood cell (WBC) count Ordered By: Kenan White on 10-13-2024 WBC (Bld) [#/Vol] 12.2 10*3/uL High 4.4-11.0 [facility] AVASTIN (BEVACIZUMAB) 1.25MG INTRAVITREAL INJECTION OD (RIGHT EYE)on 10-05-2024 [facility] OCT MACULA CIRRUS OU (BOTH E YES)on 10-05-2024 [facility] Radiology Study observation (narrative) [facility] AVASTIN (BEVACIZUMAB) 1.25MG INTRAVITREAL INJECTION OD (RIGHT EYE)on 08-24-2024 [facility] OCT MACULA CIRRUS OU (BOTH E YES)on 08-24-2024 [facility] Radiology Study observation (narrative) [facility] AVASTIN (BEVACIZUMAB) 1.25MG INTRAVITREAL INJECTION OD (RIGHT EYE)on 07-20-2024 [facility] OCT MACULA CIRRUS OU (BOTH E YES)on 07-20-2024 [facility] Radiology Study observation (narrative) [facility] Absolute lymphocyte countOrd ered By: Donal Will on 12-31-2023 Lymphocytes Auto (Unsp spec) [#/Vol] 1.84 10*3/uL 0.83-4.51 [facility] Automated lymphocyte count a s percentage of total leukocytesOrdered By: Donal Valladareske on 12-31-2023 Lymphocytes/100 WBC Auto (Unsp spec) 21.2 % 19-41 [facility] Basophil percentageOrdered B y: Donal Will on 12-31-2023 Basophils/100 WBC (Bld) 0.3 % 0-1 [facility] Bilirubin [Mass/Vol] 0.50 mg/dL 0.20-1.00 [facility] Comment on above: For patients on eltr ombopag therapy, use of Dimension [place] TBIL is not recommended. Chloride [Moles/Vol] 109 mmol/L 98-107 [facility] Cholesterol [Mass/Vol] 165 mg/dL <200 [facility] Comment on above: <200 mg/dL Desirable 200-240 mg/dL Borderline >240 mg/dL High Risk Eosinophils/100 WBC (Bld) 2.0 % 0-5 [facility] Glucose [Mass/Vol] 125 mg/dL 74-106 [facility] Comment on above: Fasting Glucose resu lt from 100 to 125 mg/dL suggests IMPAIRED HOMEOSTASIS per A.D.A. criteria. Hemoglobin (Bld) [Mass/Vol] 12.5 g/dL 12.0-15.0 [facility] Monocytes/100 WBC (Bld) 7.6 % 0-10 [facility] Neutrophils (Bld) [#/Vol] 6.0 10*3/uL 2.0-7.7 [facility] Neutrophils/100 WBC (Bld) 68.6 % 47-70 [facility] Potassium [Moles/Vol] 4.3 mmol/L 3.5-5.1 [facility] Protein [Mass/Vol] 7.2 g/dL 6.4-8.2 [facility] Sodium [Moles/Vol] 140 mmol/L 136-145 [facility] Triglyceride [Mass/Vol] 146 mg/dL <199 [facility] Comment on above: The drugs N-Acetylcy steine and Metamizole may falsely depress this assay.Serum Triglycerides Reference Interval Normal <150 mg/dL Borderline high 150 - 199 mg/dL High 200 - 499 mg/dL Very High > or = 500 mg/dL WBC (Bld) [#/Vol] 8.7 10*3/uL 4.4-11.0 [facility] Determination of erythrocyte mean corpuscular volume (MCV)Ordered By: Donal Will on 12-31-2023 MCV (RBC) [Entitic vol] 91.5 fL 81-99 [facility] Erythrocyte distribution wid th ratioOrdered By: [facility] on 12-31-2023 Erythrocyte distribution width (RBC) [Ratio] 14.3 % 11.6-14.6 [facility] Erythrocyte distribution wid th standard deviationOrdered By: [facility] on 12-31-2023 Erythrocyte distribution width (RBC) [Entitic vol] 48.5 fL 35.1-43.9 [facility] Hematocrit Auto (Bld) [Volum e fraction]Ordered By: [facility] on 12-31-2023 Hematocrit (Bld) [Volume fraction] 39.8 % 37-47 [facility] Immature granulocytes/100 WB C Auto (Bld)Ordered By: [facility] on 12-31-2023 Immature granulocytes/100 WBC (Bld) 0.300 % 0.0-0.9 [facility] Comment on above: IG% - Immature Granu locytes (promyelocytes, myelocytes and metamyelocytes) > 1% indicates that a LEFT SHIFT is Present. Laboratory - Chemistry and C hemistry - challengeOrdered By: [facility] on 12-31-2023 Albumin/Globulin [Mass ratio] 0.9 {ratio} 0.9-2.4 [facility] ALP [Catalytic activity/Vol] 101 U/L 45-117 [facility] ALT [Catalytic activity/Vol] 22 U/L 13-56 [facility] Cholesterol in HDL [Mass/Vol] 64 mg/dL >40 [facility] Comment on above: The drugs N-Acetylcy steine and Metamizole may falsely depress this assay. Reference Range HDL <40 mg/dL Low HDL Cholesterol HDL >or= 60 mg/dL High HDL Cholesterol Cholesterol in LDL [Mass/Vol] 72 mg/dL 0-130 [facility] CO2 [Moles/Vol] 28.0 mmol/L 21.0-32.0 [facility] Globulin (S) [Mass/Vol] 3.8 g/dL 2.2-4.2 [facility] Urea nitrogen/Creatinine [Mass ratio] 19.4 mg/mg 10-20 [facility] Laboratory - Hematology and Cell countsOrdered By: Donal Will on 12-31-2023 MCH (RBC) [Entitic mass] 28.7 pg 27.0-32.0 [facility] MCHC (RBC) [Mass/Vol] 31.4 g/dL 32-36 [facility] Nucleated RBC/100 WBC (Bld) [Ratio] 0 % 0-5 [facility] Platelet mean volume (Bld) [Entitic vol] 9.3 fL 6.2-12.0 [facility] Platelets (Bld) [#/Vol] 334 10*3/uL 150-450 [facility] No Panel InformationOrdered By: Donal Will on 12-31-2023 Estimated GFR (MDRD) Amer 64 mL/min >60 [facility] Comment on above: GFR Calc Estimated GFR (MDRD) Non-Af Amer 53 mL/min >60 [facility] Comment on above: Non- GFR Calc Vitamin D 25-Hydroxy 48.4 ng/mL [facility] Comment on above: Vitamin D 25(OH) Sta tus Range Deficiency <20 ng/mL (50nmol/L) Insufficiency 20 - 30 ng/mL (50 - 75 nmol/L) Sufficiency 30 - 100 ng/mL (75 - 250 nmol/L) Toxicity >100 ng/mL (>250 nmol/L) VLDL Cholesterol 29 mg/dL 5-40 [facility] RBC Auto (Bld) [#/Vol]Ordere d By: Donal Will on 12-31-2023 RBC (Bld) [#/Vol] 4.35 10*6/uL 4.2-5.4 [facility] Serum or plasma calcium ras urement (mass/volume)Ordered By: Donal Will on 12-31-2023 Calcium [Mass/Vol] 8.9 mg/dL 8.5-10.1 [facility] Serum or plasma creatinine m easurement (mass/volume)Ordered By: Donal Will on 12-31-2023 Creatinine [Mass/Vol] 1.08 mg/dL 0.55-1.02 [facility] Comment on above: The validity of the calculated GFR & GFRAA in patients over 70 years has not been determined. Clinical correlation is essential. Serum or plasma thyroid stim ulating hormone (TSH) measurement (units/volume)Ordered By: [facility] 12-31-2023 TSH Qn 2.26 uIU/mL 0.358-3.74 [facility] Serum or plasma urea nitroge n measurement (mass/volume)Ordered By: Donal Will on 12-31-2023 Urea nitrogen [Mass/Vol] 21 mg/dL 7-18 [facility] Thin prep Papanicolaou smear with manual screeningOrdered By: Donal Suman on 12-31-2023 Thin prep Papanicolaou smear with manual screening 3.4 g/dL 3.2-5.0 [facility] Thin prep Papanicolaou smear with manual screening 21 U/L 15-37 [facility] Thin prep Papanicolaou smear with manual screening 3 5-15 [facility] Whole blood hemoglobin A1c/t otal hemoglobin ratio (mass fraction)Ordered By: Donal Will on 12-31-2023 HbA1c (Bld) [Mass fraction] 7.1 % 3.8-5.6 [facility] Comment on above: Normal < 5.7 % Predi abetic 5.7 - 6.4 % Diabetic >or= 6.5 % Please note range changes. Glucose Test strip manual (B ld) [Mass/Vol]on 09-30-2023 Glucose [Mass/Vol] 91 mg/dL 74 - 99 mg/dL [facility] Interpretation and review of laboratory results [facility] Glucose Test strip manual (B ld) [Mass/Vol]on 08-26-2023 Glucose [Mass/Vol] 115 mg/dL High 74 - 99 mg/dL [facility] Interpretation and review of laboratory results [facility] BONE DENSITY, DEXA 1 OR MORE SITES: AXIAL SKELETONon 07-20-2023 BONE DENSITY, DEXA 1 OR MORE SITES: AXIAL SKELETON Patient Name: MISAEL MEDINA STUDY: BONE DENSITY, DEXA 1 OR MORE SITES: AXIAL SKELET07/20/2023 2:08 pm INDICATION: MENOPAUSAL STATE. The patient is a 73 y/o year old F. COMPARISON: 07/10/2021 ACCESSION NUMBER(S): [id number] ORDERING CLINICIAN: GIRISH SIMON TECHNIQUE: BONE DENSITY, [...] hip fracture. This exam was performed at [facility] on a [facility]. IMPRESSION: DEXA: According to World Health Organization criteria, classification is low bone mass (osteopenia) Followup recommended in two years or sooner as clinically warranted. VFA: NO VERTEBRAL FRACTURES WERE SEEN. All images and detailed analysis are available on the Radiology PACS. MACRO: None Electronically signed by: HUSSAIN GARCIA MD [facility] DIGITAL MAMM SCREENING W/ TO Murphy 07-20-2023 DIGITAL MAMM SCREENING W/ CATIE Patient Name: MISAEL MEDINA STUDY: Digital mammography screening with catie; 07/20/2023 1:51 pm ACCESSION NUMBER(S): [id number] ORDERING CLINICIAN: GIRISH SIMON INDICATION: Screening. COMPARISON: [...] Bilateral. Electronically signed by: HUSSAIN GARCIA MD [facility] PT Progress Noteon 3 PT Progress Note [...] Authorization not required after evaluation POC: [employer] (more content not included)... Normal [facility] [...] he had (more content not included)... Normal [facility] PT Progress Noteon PT Progress Note Therapy Diagnosis Assessed Impaired [...] otherwise. Patient (more content not included)... Normal [facility] PT [...] Progress to blue band next visit for , focus on maintaining isometric bridge. Progress balance [...] Pt struggles to maintain bridge while doing , she will do the bridge then the [...] R26.9; Z74.0 (more content not included)... Normal [facility] [...] day w (more content not included)... Normal [facility] [...] in clinic (more content not included)... Normal [facility] PT Progress Noteon 3 PT Progress Note [...] 14 Authorization (more content not included)... Normal [facility] Therapy Re-eval Noteon 01-11 Therapy Re-eval [...] number: 14 (more content not included)... Normal [facility] PT [...] [facility]. States that [...] code time is 44 minutes. Therapeutic exercise (70266): timed minutes 18, units 1 . NuStep 5' LvL 1.5 slant board 1' x 2 Standing heel raises 2 x 10 Airex Standing hip flexor stretch 10 x 10 Seated LAQ + Hip A (more content not included)... Normal [facility] PT [...] reports she will be going to watch [employer] basketball tournament tomorrow and will riding 2 [...] code time is 47 minutes. Therapeutic exercise (57249): timed minutes 17, units 1 . NuStep [...] MD said soreness is normal. Current pain 11/24 currently. Patient identified by name and date of . Home program performing as directed: Yes. Precautions: post-op movement restrictions: Posterior Hip Precautions. Fall Risk: moderate Htn . Treatment Time in clinic started at 1:15 Time in clinic ended at 2:00 Total time in clinic is 45 minutes. Total timed code time is 43 minutes. Therapeutic exercise (68113): timed minute (more content not included)... Normal [facility] PT Progress Noteon 3 PT Progress Note [...] declined ambulating further in clinic to the [facility] and instead opted to use rollator. Made [...] Risk: moderate (more content not included)... Normal [facility] PT Progress Noteon 3 PT Progress Note [...] Treatment Ti (more content not included)... Normal [facility] PT [...] minutes. T (more content not included)... Normal [facility] PT Progress Noteon 3 PT Progress Note [...] code time is 43 minutes. Therapeutic exercise (84844): timed minutes 22, units 1 . NuStep 5' (I lv 1.5P) Standing hip flexor stretch 10 x 10 Standing toe taps on 6 step 2 x 10 Seated LAQ + Hip Add with Pelvic Floor Contraction 10 x 5 hold Seated SLR 2 x 10 (more content not included)... Normal [facility] PT Progress Noteon 3 PT Progress Note [...] with rollator this date (vs wheelchair at [facility]), improved MMT RLE as well as [...] Z96.641 Medi (more content not included)... Normal [facility] Therapy Re-eval Noteon 12-14 Therapy Re-eval Note [...] with rollator this date (vs wheelchair at [facility]), improved MMT RLE as well as [...] R26.9; Z74.09; (more content not included)... Normal [facility] PT Progress Noteon 3 PT Progress Note [...] code time is 42 minutes. Therapeutic exercise (42480): timed minutes 35, units 2 . NuStep 6' Standing heel raises 2 x 10 Standing toe taps on 6 step 2 x 10 Standing hip abd 2 x 10 Stanidng HS curl 2 x 10 Standing hip flexor stretch 10 x 10 (N) Seated Heel Slide x 10 Seated Gastroc Stre (more content not included)... Normal Touchworks PT [...] clinic end (more content not included)... Normal TouchPressMatrix PT Progress Noteon 3 PT Progress Note [...] Therapeutic ex (more content not included)... Normal Manpacks PT Progress Noteon 3 PT Progress Note [...] code time is 44 minutes. Therapeutic exercise (59742): timed minutes 30, units 1 . NuStep 6' (N) Standing heel raises 2 x 10 Standing toe taps on 6 step 2 x 10 Standing hip abd 2 x 10 (N) Seated Heel Slide x10 Seated Gastroc Stretch with Strap x10 10?hold (more content not included)... Normal Manpacks PT Progress Noteon 3 PT Progress Note [...] code time is 39 minutes. Therapeutic exercise (53298): (more content not included)... Normal Mandelbrot Project PT Initial Evaluationon PT Initial Evaluation Therapy [...] Antalgic Gait, and impaired transfers and demonstrates impairments/limitation s in all functional transfers, gait deficits with [...] percentageon 2022 Chloride [Moles/Vol] 106 mmol/L 98-107 os [facility] Work Phone: Glucose [Mass/Vol] 251 mg/dL 74-106 [facility] Work Phone: Comment on above: Glucose result great er than or equal to 200 mg/dLsuggests DIABETES MELLITUS per A.D.A. criteria. Potassium [Moles/Vol] 4.5 mmol/L 3.5-5.1 [facility] Work Phone: Sodium [Moles/Vol] 137 mmol/L 136-145 [facility] Work Phone: WBC (Bld) [#/Vol] 13.4 10*3/uL 4.4-11.0 [facility] Work Phone: Blood erythrocytes count (nu mber/volume)on 11-20-2022 RBC (Bld) [#/Vol] 3.27 10*6/uL 4.2-5.4 [facility] Work Phone: Blood hemoglobin measurement (mass/volume)on 11-20-2022 Hemoglobin (Bld) [Mass/Vol] 9.8 g/dL 12.0-15.0 [facility] Work Phone: Blood platelet mean volumeon 11-20-2022 Platelet mean volume (Bld) [Entitic vol] 8.6 fL 6.2-12.0 [facility] Work Phone: Determination of erythrocyte mean corpuscular volume (MCV)on 11-20-2022 MCV (RBC) [Entitic vol] 93.0 fL 81-99 [facility] Work Phone: Glucose Glucometer (BldC) [M ass/Vol]on 11-20-2022 Glucose [Mass/Vol] 247 mg/dL 74-106 [facility] Work Phone: Comment on above: MANAGEMENT OF PATIEN T CARE PER NURSING PROTOCOL Hematocrit Auto (Bld) [Volum e fraction]on 11-20-2022 Hematocrit (Bld) [Volume fraction] 30.4 % 37-47 [facility] Work Phone: Laboratory - Chemistry and C hemistry - challengeon 11-20-2022 CO2 [Moles/Vol] 25.0 mmol/L 21.0-32.0 [facility] Work Phone: Urea nitrogen/Creatinine [Mass ratio] 16.7 mg/mg 10-20 [facility] Work Phone: Laboratory - Hematology and Cell countson 11-20-2022 Erythrocyte distribution width (RBC) [Entitic vol] 45.5 fL 35.1-43.9 [facility] Work Phone: Erythrocyte distribution width (RBC) [Ratio] 13.3 % 11.6-14.6 [facility] Work Phone: MCH (RBC) [Entitic mass] 30.0 pg 27.0-32.0 [facility] Work Phone: MCHC Auto (RBC) [Mass/Vol]on 11-20-2022 MCHC (RBC) [Mass/Vol] 32.2 g/dL 32-36 [facility] Work Phone: No Panel Informationon 11-20 Estimated Creatinine Clearance Calc 33.66 ml/min [facility] Work Phone: Estimated GFR (MDRD) Amer 60 mL/min >60 [facility] Work Phone: Comment on above: GFR Calc Estimated GFR (MDRD) Non-Af Amer 50 mL/min >60 [facility] Work Phone: Comment on above: Non- GFR Calc Platelets bldon 11-20-2022 Platelets (Bld) [#/Vol] 266 10*3/uL 150-450 [facility] Work Phone: Serum or plasma calcium ras urement (mass/volume)on 11-20-2022 Calcium [Mass/Vol] 8.7 mg/dL 8.5-10.1 [facility] Work Phone: Serum or plasma creatinine m easurement (mass/volume)on 11-20-2022 Creatinine [Mass/Vol] 1.14 mg/dL 0.55-1.02 [facility] Work Phone: Comment on above: The validity of the calculated GFR & GFRAA in patients over 70 years has not been determined. Clinical correlation is essential. Serum or plasma urea nitroge n measurement (mass/volume)on 11-20-2022 Urea nitrogen [Mass/Vol] 19 mg/dL 7-18 [facility] Work Phone: Thin prep Papanicolaou smear with manual screeningon 11-20-2022 Thin prep Papanicolaou smear with manual screening 6 5-15 [facility] Work Phone: Absolute lymphocyte counton 11-10-2022 Lymphocytes Auto (Unsp spec) [#/Vol] 1.37 10*3/uL 0.83-4.51 [facility] Work Phone: Basophil percentageon 2021 Basophils/100 WBC (Bld) 0.3 % 0-1 [facility] Work Phone: Eosinophils/100 WBC (Bld) 1.1 % 0-5 [facility] Work Phone: Neutrophils (Bld) [#/Vol] 7.6 10*3/uL 2.0-7.7 [facility] Work Phone: Neutrophils/100 WBC (Bld) 78.6 % 47-70 [facility] Work Phone: Blood lymphocytes/100 leukoc yteson 11-10-2022 Lymphocytes/100 WBC (Bld) 14.2 % 19-41 [facility] Work Phone: Blood monocytes/100 leukocyt eson 11-10-2022 Monocytes/100 WBC (Bld) 5.5 % 0-10 [facility] Work Phone: Laboratory - Chemistry and C hemistry - challengeon 11-10-2022 Magnesium [Mass/Vol] 1.8 mg/dL 1.6-2.6 [facility] Work Phone: Laboratory - Hematology and Cell countson 11-10-2022 Immature granulocytes/100 WBC (Bld) 0.300 % 0.0-0.9 [facility] Work Phone: Comment on above: IG% - Immature Granu locytes (promyelocytes, myelocytes and metamyelocytes) > 1% indicates that a LEFT SHIFT is Present. Nucleated RBC/100 WBC (Bld) [Ratio] 0 % 0-5 [facility] Work Phone: No Panel Informationon 11-10 Thyroid Stimulating Hormone (TSH) 1.63 uIU/mL 0.358-3.74 [facility] Work Phone: Whole blood hemoglobin A1c/t otal hemoglobin ratio (mass fraction)on 11-10-2022 HbA1c (Bld) [Mass fraction] 6.9 % 3.8-5.6 [facility] Work Phone: Comment on above: [...] hip/glut. Insurance Insurance reviewed Visit number: 9 [facility] Evaluating therapist Kenji Santoyo PT. The physical [...] code time is 32 minutes. Therapeutic exercise (16219): timed minutes 20, units 1 . Pt [...] today) gait/balcne work as angelo-A. Manual Therapy (04211): timed minutes 12, units 1 . STW [...] Aug 24 2022 10:35PM EST (Author) Normal Manpacks Therapy Re-eval Noteon 08-24 Therapy Re-eval Note [...] hip/glut. Insurance Insurance reviewed Visit number: 9 [facility] Evaluating therapist Kenji Santoyo PT. The physical [...] right, -->4/5 and 5/5 on left. Knee: (Tmz: P! Denotes Pain with Movement) Knee extension was 5/5 on right, 5/5, 5/5 on left. Knee flexion was 5/5 on right, 5/5, 5/5 on left. Outcome Measures Lower Extremity Functional Scale score: 13/80-->8 Treatment Time in clinic started at 0400 Time in clinic ended at 0435 Total time in clinic is 35 minutes. Total timed code time is 32 minutes. Therapeutic exercise (41263): timed minutes 20, units 1 . Pt [...] today) gait/balcne work as angelo-A. Manual Therapy (94081): timed minutes 12, units 1 . STW [...] Aug 24 2022 10:35PM EST (Author) Normal Touchworks PT Progress Noteon 2 PT [...] hip/glut. Insurance Insurance reviewed Visit number: 8 [facility] Evaluating therapist Kenji Santoyo PT. The physical [...] code time is 40 minutes. Therapeutic exercise (99889): timed minutes 25, units 2 . Nustep [...] today) gait/balcne work as angelo-A. Manual Therapy (31208): timed minutes 15, units 1 . STW [...] Signatures Electronically signed by : Giselle Guzman BLIND HOOKER; Aug 21 2022 2:11PM EST (Author) Electronically [...] hip/glut. Insurance Insurance reviewed Visit number: 7 [facility] Evaluating therapist Kenji Santoyo PT. The physical [...] code time is 40 minutes. Therapeutic exercise (07280): timed minutes 25, units 2 . Nustep [...] today) gait/balcne work as angelo-A. Manual Therapy (79205): timed minutes 15, units 1 . STW [...] Signatures Electronically signed by : Giselle Guzman BLIND HOOKER; Aug 17 2022 5:25PM EST (Author) Electronically signed by : Alejandra Cutler, PT; Aug 24 2022 10:51PM EST Normal [facility]works PT Progress Noteon 2 PT Progress Note Therapy Diagnosis Assessed Hip pain, right (719.45) (M25.731) Plan Goals: Goals set and discussed today. [...] hip/glut. Insurance Insurance reviewed Visit number: 6 [facility] Evaluating therapist Kenji Santoyo PT. The physical [...] code time is 40 minutes. Therapeutic exercise (72073): timed minutes 25, units 2 . Nustep [...] today) gait/balcne work as angelo-A. Manual Therapy (64950): timed minutes 14, units 1 . STW [...] Signatures Electronically signed by : Giselle Guzman BLIND HOOKER; Aug 14 2022 4:26PM EST (Author) Electronically [...] hip/glut. Insurance Insurance reviewed Visit number: 5 [facility] Evaluating therapist Kenji Santoyo PT. The physical [...] to check A1C. Patient has F/U with MD in September but wants to move the [...] code time is 38 minutes. Therapeutic exercise (88413): timed minutes 28, units 2 . Nustep [...] B gait/balcne work as angelo-A. Manual Therapy (39286): timed minutes 10, units 1 . STW 10' to piriformis and glute. Provided today:. Handout given for progression of HEP this date. Patient verbalized and demo'd understanding of correct form and technique. Exercises given are listed below: 1. Seated hip ADD 2. Seated glute squeeze 3. Seated Heel/toe raises 4. LAQ. 'Scores and Scales' Signatures Electronically signed by : Giselle Guzman BLIND HOOKER; Aug 10 2022 4:15PM EST (Author) Electronically signed by : Alejandra Cutler, PT; Aug 24 2022 10:51PM EST Normal Manpacks PT Progress Noteon 2 PT Progress Note [...] hip/glut. Insurance Insurance reviewed Visit number: 4 [facility] Evaluating therapist Kenji Santoyo PT. The physical therapist of record is the therapist who assumes primary responsibility for patient management and as such is held accountable for the coordination, continuation and progression of the POC. This patient?s care and PT of record will be transferred from Kenji Santoyo PT to Aeljandra Matson DPT effective as of 07/29/22 M25.551; [...] code time is 38 minutes. Therapeutic exercise (09205): timed minutes 28, units 2 . Nustep [...] B gait/balcne work as angelo-A. Manual Therapy (07392): timed minutes 10, units 1 . STW 10' to piriformis and glute. Provided today:. Handout given for progression of HEP this date. Patient verbalized and demo'd understanding of correct form and technique. Exercises given are listed below: 1. Seated hip ADD 2. Seated glute squeeze 3. Seated Heel/toe raises 4. LAQ. 'Scores and Scales' Signatures Electronically signed by : Yahaira West, BLIND HOOKER; Aug 07 2022 11:42AM EST (Author) Electronically signed by : Alejandra Cutler PT; Aug 24 2022 10:51PM EST Normal [facility]elbrot Project PT Progress Noteon 2 PT Progress Note [...] W/C and was wheeled into clinic by BLIND HOOKER. Able to ambulate short distances with cane [...] hip. Insurance Insurance reviewed Visit number: 3 [facility] Evaluating therapist Kenji Santoyo PT. The physical [...] code time is 43 minutes. Therapeutic exercise (24204): timed minutes 32, units 2 . Nustep [...] reps) gait/balcne work as angelo-A. Manual Therapy (54809): timed minutes 10, units 1 . STW 10' to piriformis and glute. Provided today:. Handout given for progression of HEP this date. Patient verbalized and demo'd understanding of correct form and technique. Exercises given are listed below: 1. Seated hip ADD 2. Seated glute squeeze 3. Seated Heel/toe raises 4. LAQ. 'Scores and Scales' Signatures Electronically signed by : Giselle Guzman BLIND HOOKER; Aug 03 2022 5:57PM EST (Author) Electronically signed by : Alejandra Cutler, PT; Aug 03 2022 11:13PM EST Normal [facility] PT Progress Noteon 2 PT Progress Note Therapy Diagnosis Assessed Hip pain, right (719.45) (M25.551) Plan Goals: Goals set and discussed today. 1. Independent HEP to allow for 50% reduction in max ADL C/C sx ( 10/10) 2-3wks 2. 0/10 night time sx to allow for uninterrupted sleep x1wk ( 7) 2-3wks 3. Survey score improvement from 13/80 [...] hip. Insurance Insurance reviewed Visit number: 1 [facility] Evaluating therapist Kenji Santoyo PT. The [...] reports that she is doing HEP Current 06/24 pain. Takes Tylenol all th time for [...] code time is 42 minutes. Therapeutic exercise (34463): timed minutes 32, units 2 . Nustep 5' (N) Seated Toe raises 2 x 10 (N) Seated Heel raises 2 x 10 (N) Seated hip ADD w/ play ball 2 x 10 (N) Seated LAQ 2 x 10 (N) Hooklying SAQ 2 x 10 (A) hooklying bridge x10 hooklying clamshell x10 green hooklying SLR x 5 gait/balcne work as angelo-A. Manual Therapy (06822): timed minutes 10, units 1 . STW 10' to piriformis and glute. Provided today:. Handout given for progression of HEP this date. Patient verbalized and demo'd understanding of correct form and technique. Exercises given are listed below: 1. Seated hip ADD 2. Seated glute squeeze 3. Seated Heel/toe raises 4. LAQ. 'Scores and Scales' Signatures Electronically signed by : Giselle Guzman, BLIND HOOKER; Jul 31 2022 12:58PM EST (Author) Electronically [...] 05/21) 2-3wks 3. Survey score improvement from 13 (LEFS 3-4wks 4. Strength increase to allow [...] hip. Insurance Insurance reviewed Visit number: 1 [facility] Evaluating therapist Kenji Santoyo PT. The physical [...] Functional Impairment and/or Pain Date of onset: ? Mechanism of Injury:. chronic sx onset. Medical [...] Impact Care:. ID confirmed with B-day; speaks albanian No obtrusive barriers to learning identified/observed. Objective [...] Hip - left 2 Views [facility] Work Phone: BD Bone Density DEXAon 03-10 [facility] DEXA Exam Date/Time: 03/10/2019 13:54 EDT Reason for Exam: POST MENOPAUSAL Report STUDY: [facility] Bone Density DEXA; 03/10/2019 1:54 pm INDICATION: POST MENOPAUSAL. Evaluate for osteopenia/osteoporosi s, ACCESSION NUMBER(S): [id number] ORDERING CLINICIAN: Girish Simon FINDINGS: Standard measurements [...] pm Signed by: Hussain Garcia MD Technologist: JUAN MANUEL [facility] MRA CAROTID WO/W IVCONon MRA CAROTID WO/W IVCON * * *Final Report* * *DATE OF EXAM: Jun 24 2018 1:52PM [facility] 0276 - MRA CAROTID WO/W IVCON / REASON: I70.90-Unspecified atherosclerosis * * * * Physician Interpretation * * * * MRA CAROTID WO/W IVCONHISTORY: Left vision loss. Unspecified atherosclerosisCOMPARI SON: None.TECHNIQUE: Intracranial 3D [id number] MRA with 2D multiplanar and 3D maximum [...] otherwise patent throughoutPatency: BilateralDominance: CodominantEnhancement: [No abnormal enhancement.]IMPRESSIO N:Focal moderate stenosis of the left carotid bifurcation/ICA origin.Otherwise unremarkable.Transcrip tionist: PSCB Transcribe Date/Time: Jun 24 2018 2:11PDictated by : MURRAY NICOLE MDThis examination was interpreted and the report reviewed and electronically signed by: MURRAY NICOLE MD on Jun 24 2018 2:18PM [id number] ACN Normal [facility] ANES Long 06-02-2018 ANES POST HNO ID: [id number]: Reynaldo RubioService: AnesthesiologyAuthor Type: AnesthesiologistType: Anesthesia PostOpFiled: 06/02/2018 3:59 [...] 02, 2018 : 3:59 PM PAGER/CONTACT #: [phone] [facility] ANES PREOPon 06-02-2018 ANES PREOP HNO ID: [id number]: Reynaldo RubioService: AnesthesiologyAuthor Type: AnesthesiologistType: Anesthesia PreOpFiled: 06/02/2018 12:19 [...] no vitals filed for this visit.ACTIVE PROBLEM LISTHypermetropiaRegul ar AstigmatismPresbyopiaC ombined Form of Senile Cataract of Both EyesMultiple Defects of Retina Without DetachmentType 2 Diabetes Mellitus With Right Eye Affected By Mild NonproliferativeRetino ginna Without Macular Edema, Without Long-Term Current Use [...] tablet Take 20 mg by mouth once daily.amLODIPine-Atorv astatin 10-10 mg per tabletlevothyroxine (SYNTHROID) 100 mcg tabletQuinapril-Hydroc hlorothiazide 20-12.5 mg per tabletPioglitazone-met FORMIN 15-500 mg per tabletacetaminophen (TYLENOL) 325 mg tablet Take 650 mg by mouth every 6 hoursas needed.Current Facility-Administered Medications:NaCl 0.9% iv infusion 5-30 mL/hr INTRAVENOUS CONTINUOUS Oscar (Water Pump Servicer)Keeergies: ALLERGIESAllergen Reactions- Seasonal Allergies Other: See Comments Sinus [...] and/or the pre-anesthesia evaluation, pertinent labs, and testresults.Significan t changes in the patient's condition since the History andPhysical, not otherwise documented in primary service progress notes: NoThis contains updated information obtained within 48 hours ofSurgery/Procedure.SI GNATURE: Reynaldo Rubio MD PATIENT NAME: Misael MatiasTE: June 02, 2018 : 12:19 PM CSN: [id number] [facility] HISTORY PHYSICALon 8 HISTORY PHYSICAL HNO ID: [id number]: Yasmeen [place] SyedService: Cardiovascular MedicineAuthor Type: PhysicianType: [...] 2017.SIGNATURE: Yasmeen López MD PATIENT NAME: Misael MatiasTE: June 02, 2018 : 12:40 PM PAGER: [phone] [facility] NURSING PROGon 06-02-2018 Protein mass conc HNO ID: [id number]: Tyrell ZunigaRn) VENTURA Kruseervice: NursingAuthor Type: Registered NurseType: Nursing Progress NoteFiled: 06/02/2018 12:32 PMNote Text:Patient states she had a muffin at 0645. Dr Rubio aware. Informedpatient needs to be delayed and proceed with procedure at 1445. [place] to notify Dr López. Patient aware and agreeable. [facility] PT EDon 06-02-2018 PT ED HNO ID: [id number]: Darcy ZunigaRn) VENTURA Davidsonervice: NursingAuthor Type: Registered NurseType: Patient EducationFiled: 06/02/2018 5:43 PMNote Text:POST OP LEARNING RESPONSEINSTRUCTION PROVIDED TO: Patient and family memberMETHOD OF INSTRUCTION: Individual instructionPATIENT / FAMILY RESPONSE: Verbalizes understanding of: POST-OPERATIVEINSTRUCT IONS-Correct actions to take to reduce postoperative complicationsFOLLOW-UP PLAN: Patient instructed to call with any further issuesSUPPLEMENTAL MATERIAL: NoneREFERRAL (RECOMMENDATION): NoneElectronically Signed By: Darcy Davidson RN In Department: [facility] CATH LABPATIENT EDUCATION TOPIC: PROCEDURE / SURGERY: Post-opTeaching:PATIEN T NAME: Misael CarmenN: [id number] LOCATION: [place] Service Desk Technician/[place] Cath LabREADINESS TO LEARNCOGNITIVE ABILITY: Alert and orientedMOTIVATION TO LEARN: InterestedFAMILY SUPPORT: High - Very involved in pt careINSTRUCTION PROVIDED TO: Patient and family memberPATIENT LEARNS BEST BY: Individual InstructionFACTORS AFFECTING LEARNING: NonePHYSICAL LIMITATIONS AFFECTING LEARNING: NoneLEARNING RESPONSEDIAGNOSIS: ADULT: Well AdultPATIENT/FAMILY RESPONSE: Verbalizes understanding of: POST-OPERATIVEINSTRUCT IONS-Correct actions to take to reduce postoperative complicationsMETHOD OF INSTRUCTION: Individual instructionFOLLOW-UP PLAN: Patient instructed to call with any further issuesINSTRUCTIONAL AIDS USED: NASUPPLEMENTAL MATERIAL PROVIDED TO PATIENT: NoneREFERRAL (RECOMMENDATION): NoneElectronically Signed By: Darcy Davidson RN [facility] PT ED HNO ID: [id number]: Tyrell ZunigaRn) VENTURA Kruseervice: NursingAuthor Type: Registered NurseType: Patient EducationFiled: 06/02/2018 12:15 PMNote Text:PRE OP LEARNING ASSESSMENTPROCEDURE/BROWN RGERY: SURGERY: teeREADINESS TO LEARNCOGNITIVE ABILITY: Alert and orientedMOTIVATION TO LEARN: EagerFAMILY SUPPORT: High - Very involved in pt carePATIENT LEARNS BEST BY: Individual InstructionVerbal InstructionFACTORS AFFECTING LEARNING: NonePHYSICAL LIMITATIONS AFFECTING LEARNING: NoneElectronically Signed By: Tyrell Kruse RN In Department[facility] CAROTID BILon 06-02-2018 Bilirubin.direct mass conc * * *Final Report* * *DATE OF EXAM: Jun 02 2018 9:04AM U 1077 - US CAROTID BETTY / REASON: multiple diagnoses * * * * Physician Interpretation * * * * CAROTID ULTRASOUND 06/02/2018 9:04 AMHISTORY: Cerebral infarction, unspecified Unspecified visual field defects , evaluate for carotid stenosis.COMPARISON: NoneTECHNIQUE: Carotid ultrasound performed using grayscale, spectral Doppler and color Doppler.RESULT:Moderat e left-sided plaque formation.Right side:Peak ICA systolic velocity (cm/s): 81Peak ICA end diastolic velocity (cm/s): 19Peak ICA systolic velocity ratio: 0.9Right side ICA stenosis estimation: 0-29%.Left side:Peak ICA systolic velocity (cm/s): 210Peak ICA end diastolic velocity (cm/s): 35Peak ICA systolic velocity ratio: 2.3Left side ICA stenosis estimation: 30-49%.Vertebral artery flow is antegrade bilaterally.IMPRESSION :ESTIMATION OF INTERNAL CAROTID ARTERY STENOSIS:0-29% stenosis on the right.30-49% stenosis on the left.NASCET criteria used.Wellness Manager: PSCB Transcribe Date/Time: Jun 02 2018 9:23ADictated by : SADIE PELAYO MDThis examination was interpreted and the report reviewed and electronically signed by: SADIE PELAYO MD on Jun 02 2018 9:25AM [id number] [facility] HOSPon 05-20-2018 HOSP Patient:Ed Medina na DMRN: Height:5' 1(1.549 m)Weight:262 lb 8 oz (119.069 kg)Outpatient Medications as of 06/02/18:quinapril (ACCUPRIL) 20 mg tabletamLODIPine-Atorv astatin 10-10 mg per tabletlevothyroxine (SYNTHROID) 100 mcg tabletQuinapril-Hydroc hlorothiazide 20-12.5 mg per tabletPioglitazone-met FORMIN 15-500 mg per tabletacetaminophen (TYLENOL) 325 mg tabletAdmission/Clinic Administered Medications as of 06/02/18:Patient has no admission medications.Problem List:Hypermetropia [H52.00]Regular astigmatism [H52.229]Presbyopia [H52.4]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]Multiple defects 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 [H33.339]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 Repeat basicmetabolic profile in one month.Teri Palomino 05/23/2018 11:20 AM SignedPatient notified, states understandingProgress Notes ([facility]):Yasmeen López MD 05/20/2018 11:24 AM SignedHeart and Vascular InstituteSECTION OF [facility] CARDIOLOGYOUTPATIENT VISIT DATE May 20, 2018OUTPATIENT VISIT TYPEConsultPatient is being seen at the request of Dr Kody Liz for Stroke work up andleft eye vision loss.LeftHISTORY OF PRESENT ILLNESS:Ms. Medina is a 67 year old female Had left eye visual field loss last monthand had a CAT scan of her head in [place] was visiting and wastold to [...] or eruption.PSYCH: No recent active anxiety or depression.HEMATOLOGY/ ONCOLOGY: No recent diagnosis of bleeding or cancer.ENDOCRINE: [...] Disease Paternal Grandmother- No Ocular Disease Paternal GrandfatherALLERGIESAl lergen Reactions- Seasonal Allergies Other: See Comments Sinus issuesCURRENT MEDICATIONS:quinapril (ACCUPRIL) 20 mg tablet Take 20 mg by mouth once daily.amLODIPine-Atorv astatin 10-10 mg per tabletlevothyroxine (SYNTHROID) 100 mcg tabletPioglitazone-met FORMIN 15-500 mg per tabletacetaminophen (TYLENOL) 325 mg tablet Take 650 mg by mouth every 6 hours asneeded.Quinapril-Hyd rochlorothiazide 20-12.5 mg per tabletPHYSICAL EXAM:BP 136/54 Pulse [...] are not crowded and uvula is visualized. [id number]: Clear to auscultation bilaterally.CARDIAC: Normal S1 and [...] mellitus with right eye affected by mild nonproliferativeretino ginna without macular edema, without long-term current use of insulin(HCC) [id number]. Obesity (BMI 35.0-39.9 without comorbidity) E66.9For the workup of stroke I will schedule her for a transesophagealechocar diography, carotid artery Doppler examination, as well as [...] with apneaventilation would need to be doneLifestyle Recommendation/Net Developer Consultant ingFollow a heart healthy diet such as the [...] plan.Yasmeen López MD FACCCC: Girish Simon MD[address] [place], [place] [address]Nbxuh: [phone]: [phone] Normal [facility] ([facility])on 10-01-2017 Pathology ([facility]) FINAL GYNECOLOGIC CYTOLOGY [id number] EN ADEQUACYSatisfactory for Evaluation. Endocervical cells/transformation zone componentpresent.GENER AL CATEGORIZATIONNegative for Intraepithelial Lesion or MalignancyCLINICAL HISTORYHysterectomySPE CIMEN(A) SCREENING CERVICAL/ENDOCERVICAL LIQUID-BASED PAPPerformed at [facility], [address], [place] [address]Rloipigh by: Signed Out by: RADHA MEDINA Production Cook Reported: 10/11/[address] [facility] Healthcare Comment on above: Performed By: #### G YN ####[facility] [address] [place] [address] Glucose, POCon 06-16-2017 Glucose mass conc 135 mg/dL High 80-115 [facility] Comment on above: Performed By: #### G LUX ####Unless otherwise noted, all testing performed by [address] [id number]: [id number] Director: Aneudy Damian M.D. No Panel Information Nasal Screen MRSA/MSSA [facility] Work Phone: [facility] Vital Signs Date Time Vital Sign Value Performing Clinician Facility 07-28-2025 03:52-0400 Diastolic blood pressure 65 mm[Hg] Tory Kumar DO Work Phone: [facility] 07-28-2025 03:52-0400 Heart rate 87 /min Tory Kumar DO Work Phone: [facility] 07-28-2025 03:52-0400 Respiratory rate 16 /min Tory Kumar DO Work Phone: [facility] 07-28-2025 03:52-0400 SaO2% (BldA) [Mass fraction] 99 % Tory Kumar DO Work Phone: [facility] 07-28-2025 03:52-0400 Systolic blood pressure 109 mm[Hg] Tory Kumar DO Work Phone: [facility] 07-28-2025 00:16-0400 Body temperature 97.5 [degF] Tory Kumar DO Work Phone: [facility] 07-27-2025 23:20-0400 Body height 153 cm Tory Kumar DO Work Phone: [facility] 07-27-2025 23:20-0400 Body mass index (BMI) [Ratio] 37.11 kg/m2 Tory Kumar DO Work Phone: [facility] 07-27-2025 23:20-0400 Body weight 86.86 kg Tory Kumar DO Work Phone: [facility] 07-20-2025 08:58-0400 Respiratory rate 18 /min Aly Julios DO Work Phone: [facility] 07-20-2025 08:40-0400 Body temperature 97.39 [degF] Aly Bangapas DO Work Phone: [facility] 07-20-2025 08:40-0400 Diastolic blood pressure 71 mm[Hg] Aly Lumapas DO Work Phone: [facility] 07-20-2025 08:40-0400 Heart rate 63 /min Aly Lumapas DO Work Phone: [facility] 07-20-2025 08:40-0400 SaO2% (BldA) [Mass fraction] 94 % Aly Lumapas DO Work Phone: [facility] 07-20-2025 08:40-0400 Systolic blood pressure 115 mm[Hg] Aly Lumapas DO Work Phone: [facility] 07-20-2025 06:00-0400 Body mass index (BMI) [Ratio] 36.08 kg/m2 Aly Lumapas DO Work Phone: [facility] 07-20-2025 06:00-0400 Body weight 83.8 kg Aly Abrams DO Work Phone: [facility] 06-28-2025 18:03-0400 Body height 152.4 cm Aly Abrams DO Work Phone: [facility] 06-25-2025 03:08-0400 Body temperature 98.9 [degF] Donal Will MD Work Phone: [facility] 06-25-2025 03:08-0400 Diastolic blood pressure 55 mm[Hg] Donal Will MD Work Phone: [facility] 06-25-2025 03:08-0400 Heart rate 97 /min Donal Will MD Work Phone: [facility] 06-25-2025 03:08-0400 Respiratory rate 18 /min Donal Will MD Work Phone: [facility] 06-25-2025 03:08-0400 SaO2% (BldA) [Mass fraction] 92 % Donal Will MD Work Phone: [facility] 06-25-2025 03:08-0400 Systolic blood pressure 95 mm[Hg] Donal Will MD Work Phone: [facility] 06-25-2025 03:00-0400 Inhaled oxygen flow rate 2 L/min Donal Will MD Work Phone: [facility] 06-24-2025 23:47-0400 Body height 149.86 cm Donal Will MD Work Phone: [facility] 06-24-2025 23:47-0400 Body mass index (BMI) [Ratio] 43.6 kg/m2 Donal Will MD Work Phone: [facility] 06-24-2025 23:47-0400 Body weight 98 kg Donal Will MD Work Phone: [facility] 05-16-2025 07:43-0400 Body height 151.99 cm Donal Will MD Work Phone: [facility] 05-16-2025 07:43-0400 Body mass index (BMI) [Ratio] 41.4 kg/m2 Donal Will MD Work Phone: [facility] 05-16-2025 07:43-0400 Body weight 95.7 kg Donal Will MD Work Phone: 2(745)999-317965 [place] [address] 05-16-2025 07:43-0400 Diastolic blood pressure 68 mm[Hg] Donal Will MD Work Phone: 8(172)586-055765 [place] [address] 05-16-2025 07:43-0400 Heart rate 70 /min Donal Will MD Work Phone: 3(771)394-640265 [place] [address] 05-16-2025 07:43-0400 Respiratory rate 18 /min Donal Will MD Work Phone: 0(929)400-803665 [place] [address] 05-16-2025 07:43-0400 SaO2% (BldA) [Mass fraction] 90 % Donal Will MD Work Phone: [facility] 05-16-2025 07:43-0400 Systolic blood pressure 109 mm[Hg] Donal Will MD Work Phone: 6(510)242-865024 [place] [address] 04-04-2025 06:50-0400 Body height 151.99 cm Donal Will MD Work Phone: 8(964)917-355765 [place] [address] 04-04-2025 06:50-0400 Body mass index (BMI) [Ratio] 46.7 kg/m2 Donal Will MD Work Phone: [facility] 04-04-2025 06:50-0400 Body weight 107.95 kg Donal Will MD Work Phone: 7(457)860-231965 [place] [address] 04-04-2025 06:50-0400 Diastolic blood pressure 69 mm[Hg] Donal Will MD Work Phone: 9(864)086-554965 [place] [address] 04-04-2025 06:50-0400 Heart rate 74 /min Donal Will MD Work Phone: 7(125)739-033665 [place] [address] 04-04-2025 06:50-0400 Inhaled oxygen flow rate 1 L/min Donal Will MD Work Phone: [facility] 04-04-2025 06:50-0400 Respiratory rate 18 /min Donal Will MD Work Phone: [facility] 04-04-2025 06:50-0400 SaO2% (BldA) [Mass fraction] 96 % Donal Will MD Work Phone: [facility] 04-04-2025 06:50-0400 Systolic blood pressure 121 mm[Hg] Donal Will MD Work Phone: [facility] 03-23-2025 11:00-0400 Body mass index (BMI) [Ratio] 49.2 kg/m2 Donal Will MD Work Phone: [facility] 03-23-2025 11:00-0400 Body temperature 97.2 [degF] Donal Will MD Work Phone: [facility] 03-23-2025 11:00-0400 Body weight 113.7 kg Donal Will MD Work Phone: [facility] 03-23-2025 11:00-0400 Diastolic blood pressure 72 mm[Hg] Donal Will MD Work Phone: [facility] 03-23-2025 11:00-0400 Heart rate 61 /min Donal Will MD Work Phone: [facility] 03-23-2025 11:00-0400 Inhaled oxygen flow rate 2 L/min Donal Will MD Work Phone: [facility] 03-23-2025 11:00-0400 Respiratory rate 16 /min Donal Will MD Work Phone: [facility] 03-23-2025 11:00-0400 SaO2% (BldA) [Mass fraction] 97 % Donal Will MD Work Phone: [facility] 03-23-2025 11:00-0400 Systolic blood pressure 131 mm[Hg] Donal Will MD Work Phone: [facility] 03-22-2025 15:24-0400 Body height 151.99 cm Donal Will MD Work Phone: [facility] 03-13-2025 18:48-0400 Body temperature 97.8 [degF] Donal Will MD Work Phone: [facility] 03-13-2025 18:48-0400 Diastolic blood pressure 75 mm[Hg] Donal Will MD Work Phone: [facility] 03-13-2025 18:48-0400 Heart rate 66 /min Donal Will MD Work Phone: [facility] 03-13-2025 18:48-0400 Respiratory rate 23 /min Donal Will MD Work Phone: [facility] 03-13-2025 18:48-0400 SaO2% (BldA) [Mass fraction] 95 % Donal Will MD Work Phone: [facility] 03-13-2025 18:48-0400 Systolic blood pressure 143 mm[Hg] Donal Will MD Work Phone: [facility] 03-13-2025 18:20-0400 Inhaled oxygen flow rate 2 L/min Donal Will MD Work Phone: [facility] 03-13-2025 15:47-0400 Body mass index (BMI) [Ratio] 51 kg/m2 Donal Will MD Work Phone: [facility] 03-13-2025 15:47-0400 Body weight 118.47 kg Donal Will MD Work Phone: [facility] 03-13-2025 13:58-0400 Body height 152.4 cm Donal Will MD Work Phone: [facility] 03-12-2025 09:01-0400 Body mass index (BMI) [Ratio] 49.6 kg/m2 Donal Will MD Work Phone: [facility] 03-12-2025 09:01-0400 Body weight 115.21 kg Donal Will MD Work Phone: [facility] 03-12-2025 09:01-0400 Diastolic blood pressure 74 mm[Hg] Donal Will MD Work Phone: [facility] 03-12-2025 09:01-0400 Heart rate 82 /min Donal Will MD Work Phone: [facility] 03-12-2025 09:01-0400 Respiratory rate 22 /min Donal Will MD Work Phone: [facility] 03-12-2025 09:01-0400 SaO2% (BldA) [Mass fraction] 90 % Donal Will MD Work Phone: [facility] 03-12-2025 09:01-0400 Systolic blood pressure 118 mm[Hg] Donal Will MD Work Phone: [facility] 12-01-2024 10:33-0500 Body height 152.4 cm Donal Will MD Work Phone: [facility] 12-01-2024 10:33-0500 Body mass index (BMI) [Ratio] 46.3 kg/m2 Donal Will MD Work Phone: [facility] 12-01-2024 10:33-0500 Body weight 107.5 kg Donal Will MD Work Phone: [facility] 12-01-2024 10:33-0500 Diastolic blood pressure 73 mm[Hg] Donal Will MD Work Phone: [facility] 12-01-2024 10:33-0500 Heart rate 89 /min Donal Will MD Work Phone: [facility] 12-01-2024 10:33-0500 Respiratory rate 18 /min Donal Will MD Work Phone: [facility] 12-01-2024 10:33-0500 SaO2% (BldA) [Mass fraction] 97 % Donal Will MD Work Phone: [facility] 12-01-2024 10:33-0500 Systolic blood pressure 113 mm[Hg] Donal Will MD Work Phone: [facility] 11-02-2024 12:21-0500 SaO2% (BldA) [Mass fraction] 86 % Donal Will MD Work Phone: [facility] 11-02-2024 09:00-0500 Body temperature 98 [degF] Donal Will MD Work Phone: [facility] 11-02-2024 09:00-0500 Diastolic blood pressure 53 mm[Hg] Donal Will MD Work Phone: [facility] 11-02-2024 09:00-0500 Heart rate 64 /min Donal Will MD Work Phone: [facility] 11-02-2024 09:00-0500 Inhaled oxygen flow rate 2 L/min Donal Will MD Work Phone: [facility] 11-02-2024 09:00-0500 Respiratory rate 12 /min Donal Will MD Work Phone: [facility] 11-02-2024 09:00-0500 Systolic blood pressure 139 mm[Hg] Donal Will MD Work Phone: [facility] 11-02-2024 04:36-0500 Body mass index (BMI) [Ratio] 47.4 kg/m2 Donal Will MD Work Phone: [facility] 11-02-2024 04:36-0500 Body weight 110.1 kg Donal Will MD Work Phone: [facility] 10-21-2024 14:06-0500 Body temperature 98.1 [degF] Donal Will MD Work Phone: [facility] 10-21-2024 14:06-0500 Diastolic blood pressure 55 mm[Hg] Donal Will MD Work Phone: [facility] 10-21-2024 14:06-0500 Heart rate 65 /min Donal Will MD Work Phone: [facility] 10-21-2024 14:06-0500 Respiratory rate 18 /min Donal Will MD Work Phone: [facility] 10-21-2024 14:06-0500 SaO2% (BldA) [Mass fraction] 97 % Donal Will MD Work Phone: [facility] 10-21-2024 14:06-0500 Systolic blood pressure 137 mm[Hg] Donal Will MD Work Phone: [facility] 10-21-2024 10:00-0500 Inhaled oxygen flow rate 2 L/min Donal Will MD Work Phone: [facility] 10-21-2024 03:53-0500 Body mass index (BMI) [Ratio] 50.3 kg/m2 Donal Will MD Work Phone: [facility] 10-21-2024 03:53-0500 Body weight 116.8 kg Donal Will MD Work Phone: [facility] 10-19-2024 00:06-0500 Inhaled oxygen concentration 35 % Donal Will MD Work Phone: [facility] 09-30-2023 10:25-0500 Body temperature 97.7 [degF] Dilan Liz MD Work Phone: [facility] 09-30-2023 10:25-0500 Diastolic blood pressure 77 mm[Hg] Dilan Liz MD Work Phone: [facility] 09-30-2023 10:25-0500 Heart rate 70 /min Dilan Liz MD Work Phone: [facility] 09-30-2023 10:25-0500 Respiratory rate 16 /min Dilan Liz MD Work Phone: [facility] 09-30-2023 10:25-0500 SaO2% (BldA) [Mass fraction] 96 % Dilan Liz MD Work Phone: [facility] 09-30-2023 10:25-0500 Systolic blood pressure 176 mm[Hg] Dilan Liz MD Work Phone: [facility] 09-30-2023 08:48-0500 Body height 153 cm Dilan Liz MD Work Phone: [facility] 09-30-2023 08:48-0500 Body mass index (BMI) [Ratio] 47.76 kg/m2 Dilna Liz MD Work Phone: [facility] 09-30-2023 08:48-0500 Body weight 111.8 kg Dilan Liz MD Work Phone: [facility] 09-27-2023 15:38-0500 Diastolic blood pressure 72 mm[Hg] Dilan Liz MD Work Phone: [facility] 09-27-2023 15:38-0500 Heart rate 72 /min Dilan Liz MD Work Phone: [facility] 09-27-2023 15:38-0500 Systolic blood pressure 187 mm[Hg] Dilan Liz MD Work Phone: [facility] 08-26-2023 13:14-0400 Body temperature 97.3 [degF] Dilan Liz MD Work Phone: [facility] 08-26-2023 13:14-0400 Diastolic blood pressure 86 mm[Hg] Dilan Liz MD Work Phone: [facility] 08-26-2023 13:14-0400 Heart rate 68 /min Dilan Liz MD Work Phone: [facility] 08-26-2023 13:14-0400 Respiratory rate 20 /min Dilan Liz MD Work Phone: [facility] 08-26-2023 13:14-0400 SaO2% (BldA) [Mass fraction] 94 % Dilan Liz MD Work Phone: [facility] 08-26-2023 13:14-0400 Systolic blood pressure 171 mm[Hg] Dilan Liz MD Work Phone: [facility] 08-26-2023 10:55-0400 Body height 153 cm Dilan Liz MD Work Phone: [facility] 08-26-2023 10:55-0400 Body mass index (BMI) [Ratio] 46.99 kg/m2 Dilan Liz MD Work Phone: [facility] 08-26-2023 10:55-0400 Body weight 110 kg Dilan Liz MD Work Phone: [facility] 08-04-2023 13:23-0400 Diastolic blood pressure 72 mm[Hg] Dilan Liz MD Work Phone: [facility] 08-04-2023 13:23-0400 Heart rate 72 /min Dilan Liz MD Work Phone: [facility] 08-04-2023 13:23-0400 Systolic blood pressure 187 mm[Hg] Dilan Liz MD Work Phone: [facility] 11-20-2022 12:57-0500 Body temperature 98 [degF] Dr. Girish Simon Work Phone: [facility] Work Phone: 11-20-2022 12:57-0500 Diastolic blood pressure 50 mm[Hg] Dr. Girish Simon Work Phone: [facility] Work Phone: 11-20-2022 12:57-0500 Heart rate 74 /min Dr. Girish Simon Work Phone: [facility] Work Phone: 11-20-2022 12:57-0500 Respiratory rate 16 /min Dr. Girish Simon Work Phone: [facility] Work Phone: 11-20-2022 12:57-0500 SaO2% (BldA) [Mass fraction] 97 % Dr. Girish Simon Work Phone: [facility] Work Phone: 11-20-2022 12:57-0500 Systolic blood pressure 128 mm[Hg] Dr. Girish Simon Work Phone: [facility] Work Phone: 11-19-2022 20:02-0500 Body height 154.[address] Girish Simon Work Phone: [facility] Work Phone: 11-19-2022 20:02-0500 Body mass index (BMI) [Ratio] 45.5 kg/m2 Dr. Girish Simon Work Phone: [facility] Work Phone: 11-19-2022 20:02-0500 Body weight 109.[address] Girish Simon Work Phone: [facility] Work Phone: 11-19-2022 16:42-0500 Inhaled oxygen flow rate 4 L/min Dr. Girish Simon Work Phone: [facility] Work Phone: 08-31-2022 14:31-0400 Body mass index (BMI) [Ratio] 44.9 kg/m2 Dr. Girish Simon Work Phone: [facility] Work Phone: 08-31-2022 14:31-0400 Body weight 107.[address] Girish Simon Work Phone: [facility] Work Phone: Encounters Encounter Date Encounter Type Care Provider Facility Start: 09-14-2025 [facility] Facility:[facility] Start: 09-05-2025 [facility] Facility: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) Start: 08-21-2025 End: 08-25-2025 ambulatory [facility] Start: 07-28-2025 End: 08-03-2025 Evaluation and management of inpatient ASIA BROOKS [facility] Start: 07-28-2025 End: 07-28-2025 ambulatory [facility] Start: 07-27-2025 End: 07-28-2025 Emergency department patient visit Tory Kumar DO Work Phone: [facility] Emergency Medicine Comment on above: Complete small bowel obstruction (Multi) (Primary Dx) Start: 07-23-2025 End: 07-23-2025 Orders Only Bushra Parsons RN [facility] Infect[facility] Disease Comment on above: 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); Abnormal finding on echocardiogram; Abnormal electrocardiogram Start: 07-20-2025 End: 07-23-2025 Orders Only Bushra Parsons RN [facility] [place] [facility] Start: 07-06-2025 ambulatory Almas Camarena y:[facility] Start: 06-28-2025 End: 06-28-2025 [facility]ulatory [facility] Start: 06-28-2025 End: 07-20-2025 Evaluation and management of inpatient Giselle Payne MD Work Phone: [facility] Start: 06-28-2025 ambulatory Chalon Suman [facility] Start: 06-25-2025 ambulatory Chalon Suman [facility] Start: 06-25-2025 ambulatory Chalon Suman [facility] Start: 06-25-2025 End: 06-28-2025 Evaluation and management of inpatient Ana L White Facility:[facility] Start: 06-25-2025 ambulatory Ana L White Facility :[facility] Start: 06-25-2025 Evaluation and manag ement of inpatient Dr. Ana Chambers MD -Progressive Care Unit Work Phone: Start: 06-25-2025 observation encounter Donal vasquez MD Work Phone: -[facility] Care Unit Start: 06-22-2025 ambulatory Almas [facility] y:[facility] Start: 05-31-2025 End: 05-31-2025 Unlisted evaluation and management service Sergo Chirinos MD, PhD Work Phone: Ophthalmology Comment on above: 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 without macular edema, without long-term current use of insulin ([facility] Start: 05-31-2025 End: 05-31-2025 ambulatory SERGO CHIRINOS Facility:[facility] Start: 05-21-2025 End: 05-21-2025 ambulatory Donal Will MD Work Phone: -[facility] Start: 05-21-2025 End: 05-21-[address] Donal Will MD -[facility] Work Phone: Start: 05-21-2025 End: 05-21-2025 ambulatory Donal Will Facility:[facility] Start: 05-16-2025 End: 05-16-2025 Patient encounter procedure Onofre BOATENG -[facility] Work Phone: Start: 05-16-2025 End: 05-16-2025 ambulatory Donal Will MD Work Phone: [facility] Start: 05-16-2025 End: 05-16-2025 ambulatory Donal Will Facility:[facility] Start: 04-04-2025 End: 04-04-2025 Patient encounter procedure Onofre BOATENG -[facility] Work Phone: Start: 04-04-2025 End: 04-04-2025 ambulatory Donal Will MD Work Phone: [facility] Work Phone: Start: 03-23-2025 Non-patient / Non-visit Dr. Fitz frausto DO -[facility] Work Phone: Start: 03-22-2025 Non-patient / Non-visit Dr. Fitz Giles [facility] Work Phone: Start: 03-21-2025 Non-patient / Non-visit [facility]. Fitz Giles [facility] Work Phone: Start: 03-20-2025 Non-patient / Non-visit Dr. Aparna mckenzie [facility] Work Phone: Start: 03-19-2025 Non-patient / Non-visit Dr. Fitz Giles [facility] Work Phone: Start: 03-18-2025 Non-patient / Non-visit Dr. Stone [facility] Work Phone: Start: 03-17-2025 Non-patient / Non-visit Dr. Stone [facility] Work Phone: Start: 03-17-2025 Non-patient / Non-visit Dr. Josemanuel SANTIAGO [facility] Start: 03-16-2025 [facility] Facility :[facility] Start: 03-16-2025 Non-patient / Non-visit Dr. Fitz owen MD -[facility] Start: 03-16-2025 Non-patient / Non-visit Dr. Joao Francois MD [facility] Start: 03-16-2025 Non-patient / Non-visit [facility]. Perdomo [facility] Work Phone: Start: 03-15-2025 Non-patient / Non-visit Dr. Joao Francois MD [facility] Start: 03-14-2025 Non-patient / Non-visit [facility]. Perdomo [facility] Work Phone: Start: 03-14-2025 Non-patient / Non-visit [facility]. Siobhan [facility] Start: 03-13-2025 Non-patient / Non-visit Dr. Luiza Muñoz MD -[facility] Work Phone: Start: 03-13-2025 ambulatory Milton Muñoz Fac ility:[facility] Start: 03-13-2025 End: 03-23-2025 Evaluation and management of inpatient Dr. Milton Muñoz MD -Progressive Care Unit Work Phone: Start: 03-12-2025 End: 03-12-2025 Patient encounter procedure Onofre BOATENG -Laboratory Work Phone: Start: 03-12-2025 End: 03-12-2025 Patient encounter procedure Onofre BOATENG -[facility] Work Phone: Start: 03-12-2025 End: 03-12-2025 ambulatory Donal Will Facility:[facility] Start: 03-12-2025 End: 03-12-2025 ambulatory Donal Will Facility:[facility] Start: 02-15-2025 End: 02-15-2025 ambulatory SERGO CHIRINOS Facility:[facility] Start: 02-15-2025 End: 02-15-2025 Office outpatient visit 25 minutes Sergo Chirinos MD, PhD Work Phone: Ophthalmology Comment on above: 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 Donal Will MD -Laboratory, [facility] Start: 01-11-2025 End: 01-11-2025 ambulatory Donal Will Facility:[facility] Start: 12-12-2024 ambulatory Donal Will [facility]: [facility] Start: 12-12-2024 Non-patient / Non-visit Dr. Saucedo [facility] -[facility] Start: 12-12-2024 End: 12-12-[address] Joao Ramirez MD -Cardiovascular Services Work Phone: Start: 12-12-2024 End: 12-12-2024 ambulatory [facility] Facility:[facility] Start: 12-08-2024 End: 12-08-[address] Joao Ramirez MD -Laboratory Work Phone: Start: 12-08-2024 End: 12-08-2024 ambulatory [facility] Facility:[facility] Start: 12-01-2024 End: 12-01-[address] Joao Ramirez MD -Laboratory Work Phone: Start: 12-01-2024 End: 12-01-[address] 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 Donal Will MD -[facility] [place] Work Phone: Start: 11-10-2024 End: 11-10-2024 [facility] Facility:[facility] Start: 11-06-2024 End: 11-06-[address] Seth Garnica DO -[facility] [place] Work Phone: Start: 11-06-2024 End: 11-06-2024 ambulatory [facility] Facility:[facility] Start: 11-02-2024 Non-patient / Non-visit Dr. Conor CARDOSO [facility] Work Phone: Start: 11-01-2024 Non-patient / Non-visit Dr. Perdomo [facility] Work Phone: Start: 10-31-2024 Non-patient / Non-visit [facility]. Perdomo [facility] Work Phone: Start: 10-30-2024 ambulatory Aparna Mabry [facility] Start: 10-30-2024 End: 11-02-2024 Evaluation and management of inpatient Dr. Seth Garnica DO [facility] Work Phone: Start: 10-21-2024 Non-patient / Non-visit Dr. Perdomo [facility] Work Phone: Start: 10-20-2024 Non-patient / Non-visit Dr. Girish priest MD -[facility] Work Phone: Start: 10-19-2024 Non-patient / Non-visit Dr. Dennise Ramirez MD [facility] Start: 10-18-2024 Non-patient / Non-visit Dr. Mark holguin DO [facility] Start: 10-18-2024 ambulatory Donal Suman [facility] Start: 10-18-2024 Non-patient / Non-visit Dr. Lyudmila Linares MD [facility] Start: 10-18-2024 Non-patient / Non-visit Dr. Dennise Ramirez MD [facility] Start: 10-18-2024 ambulatory Mark Mcfarland [facility] Start: 10-18-2024 End: 10-21-2024 Evaluation and management of inpatient Dr. Seth Garnica DO [facility] Work Phone: Start: 10-13-2024 End: 10-13-[address] 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, without long-term current use of insulin (HCC) (Primary Dx) Start: 09-06-2024 End: 09-06-2024 ambulatory SARAH REILLY II Facility:[facility] Start: 09-06-2024 End: 09-06-2024 Patient encounter procedure [...] Start: 08-24-2024 End: 08-24-2024 ambulatory YEN GAMBOA Facility:[facility] Start: 08-24-2024 End: 08-24-2024 Patient encounter procedure Yen Gamboa MD Work Phone: Ophthalmology Comment on above: 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, without long-term current use of insulin (HCC) Start: 07-20-2024 End: 07-20-2024 ambulatory SERGO CHIRINOS Facility:[facility] Start: 07-20-2024 End: 07-20-2024 Office outpatient visit 25 minutes Sergo Chirinos MD, PhD Work Phone: Ophthalmology Comment on above: 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, without long-term current use of insulin (HCC) (Primary Dx) Start: 07-20-2024 End: 07-20-2024 ambulatory SARAH REILLY II Facility:[facility] Start: 07-20-2024 End: 07-20-2024 Patient encounter procedure Sarah Reilly OD Work Phone: Optometry Comment on above: 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, without long-term current use of insulin (HCC) (Primary Dx) Start: 12-31-2023 End: 12-31-2023 ambulatory [facility] Work Phone: Start: 12-31-2023 End: 12-31-2023 Patient encounter procedure [facility] Start: 12-22-2023 End: 12-22-2023 Patient encounter procedure Sarah Reilly OD Work Phone: Optometry Comment on above: Status post cataract extraction and insertion of intraocular lens of right eye (Primary Dx); Status post cataract extraction and insertion of intraocular lens of left eye Start: 10-13-2023 End: 10-13-2023 Patient encounter procedure Sarah Reilly OD Work Phone: Optometry Comment on above: Status post cataract extraction and insertion of intraocular lens of right eye (Primary Dx); Status post cataract extraction and insertion of intraocular lens of left eye Start: 10-01-2023 End: 10-01-2023 Patient encounter procedure Dilan Liz MD Work Phone: Ophthalmology Comment on above: [...] End: 09-30-2023 Subsequent hospital visit by physician Dilan Liz MD Work Phone: [facility] [place] Start: 09-27-2023 End: 09-27-2023 Patient encounter procedure Dilan Liz MD Work Phone: Ophthalmology Comment on above: [...] Start: 08-27-2023 End: 08-27-2023 Patient encounter procedure Dilan Liz MD Work Phone: Ophthalmology Comment on above: 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 Girish Simon Facility:[id number] Start: 08-04-2023 End: 08-04-2023 Patient encounter procedure Dilan Liz MD Work Phone: Ophthalmology Comment on above: [...] hypertension Start: 07-20-[address] Girish Simon Facility:[id number] Start: 05-05-2023 End: 05-05-2023 Patient encounter procedure Sarah Reilly OD Work Phone: Optometry Comment on above: Ocular hypertension of left eye (Primary Dx) Start: 02-15-2023 Patient encounter procedure Girish Siomn Work Phone: [facility] Work Phone: Start: 02-15-[address] Girish Simon Facility:[id number] Start: 02-12-[address] Girish Simon Facility:[id number] Start: 02-08-2023 Patient encounter procedure Girish Simon Work Phone: [facility] Work Phone: Start: 02-08-[address] Girish Simon Facility:[id number] Start: 02-05-[address] Girish Simon Facility:[id number] Start: 02-05-2023 PTFUADULT4, Provider : Giselle Guzman, Status: Pen, Time: 2:45 PM Girish Simon Work Phone: [facility] Work Phone: Start: 02-03-[address] Girish Simon Facility:[id number] Start: 02-03-2023 Patient encounter procedure Girish Simon Work Phone: [facility] Work Phone: Start: 01-29-2023 Patient encounter procedure Girish Simon Work Phone: [facility] Work Phone: Start: 01-29-2023 ambulatory Ms. Carey Small Facility:[id number] Start: 01-15-[address] Girish Simon Facility:[id number] Start: 01-15-2023 Patient encounter procedure Girish Simon Work Phone: [facility] Work Phone: Start: 01-11-2023 Patient encounter procedure Girish Simon Work Phone: [facility] Work Phone: Start: 01-11-[address] Girish Simon Facility:[id number] Start: 01-08-2023 Patient encounter procedure Girish Simon Work Phone: [facility] Work Phone: Start: 01-08-[address] Girish Simon Facility:[id number] Start: 01-04-2023 ambulatory Ms. Patino Roxy Garcia Facility:[id number] Start: 01-04-2023 Patient encounter procedure Girish Simon Work Phone: [facility] Work Phone: Start: 01-01-2023 Patient encounter procedure Girish Simon Work Phone: [facility] Work Phone: Start: 01-01-2023 ambulatory Ms. Patino Roxy Garcia Facility:[id number] Start: 12-28-2022 ambulatory Ms. Carey Ramsey babak Garcia Facility:[id number] Start: 12-25-2022 Patient encounter procedure Girish Simon Work Phone: [facility] Work Phone: Start: 12-25-2022 PTFUADULT4, Provider : Giselle Guzman, Status: Pen, Time: 1:15 PM Girish Simon Work Phone: [facility] Work Phone: Start: 12-25-2022 ambulatory Ms. Patino Roxy Garcia Facility:[id number] Start: 12-23-2022 ambulatory Ms. Patino Roxy Garcia Facility:[id number] Start: 12-23-2022 End: 12-23-2022 Patient encounter procedure [...] encounter procedure Girish Simon Work Phone: [facility] Work Phone: Start: 12-18-[address] Girish Simon Facility:[id number] Start: 12-14-2022 Patient encounter procedure Girish Simon Work Phone: [facility] Work Phone: Start: 12-14-[address] Girish Simon Facility:[id number] Start: 12-11-[address] Girish Simon Facility:[id number] Start: 12-11-2022 Patient encounter procedure Girish Simon Work Phone: [facility] Work Phone: Start: 12-07-2022 Patient encounter procedure Girish Simon Work Phone: [facility] Work Phone: Start: 12-07-[address] Girish Simon Facility:[id number] Start: 12-04-2022 Patient encounter procedure Girish Simon Work Phone: [facility] Work Phone: Start: 12-04-[address] Girish Simon Facility:[id number] Start: 12-03-2022 End: 12-03-2022 Patient encounter procedure Sergo Chirinos MD, PhD Work Phone: Ophthalmology Comment on above: Central retinal ashley ry occlusion, left eye Start: 11-30-[address] Girish Simon Facility:[id number] Start: 11-27-2022 Patient encounter procedure Girish Simon Work Phone: [facility] Work Phone: Start: 11-27-[address] Girish Simon Facility:[id number] Start: 11-23-[address] Girish Simon Facility:[id number] Start: 11-19-2022 Non-patient / Non-visit Dr. Butcher Work Phone: [facility] Start: 11-19-2022 End: 11-20-2022 Evaluation and management of inpatient Dr. Girish Simon Work Phone: [facility] 3 Start: 11-19-2022 End: 11-20-[address] Girish Simon Work Phone: [facility] Work Phone: Start: 11-13-2022 Non-patient / Non-visit Dr. Butcher Work Phone: [facility] Start: 11-13-[address] Girish Simon Work Phone: [facility] Start: 11-10-2022 End: 11-10-[address] Girish Simon Work Phone: [facility] Work Phone: Start: 11-10-2022 End: 11-10-[address] Girish Simon Work Phone: [facility] Start: 10-01-2022 End: 10-01-2022 Patient encounter procedure [...] encounter procedure Dr. Girish Simon Work Phone: [facility] Start: 08-24-[address] Girish Simon Facility:[id number] Start: 08-24-2022 Patient encounter procedure Girish Simon Work Phone: [facility] Work Phone: Start: 08-21-2022 Patient encounter procedure Girish Simon Work Phone: [facility] Work Phone: Start: 08-21-[address] Girish Simon Facility:[id number] Start: 08-17-[address] Girish Simon Facility:[id number] Start: 08-14-2022 Patient encounter procedure Girish Simon Work Phone: [facility] Work Phone: Start: 08-07-2022 Patient encounter procedure Girish Simon Work Phone: [facility] Work Phone: Start: 08-03-2022 Patient encounter procedure Girish Simon Work Phone: [facility] Work Phone: Start: 07-31-2022 Patient encounter procedure Girish Simon Work Phone: [facility] Work Phone: Start: 07-31-2022 PTFUADULT4, Provider : Giselle Guzman, Status: Pen, Time: 10:00 AM Girish Simon Work Phone: [facility] Work Phone: Start: 07-29-2022 Patient encounter procedure Girish Simon Work Phone: [facility] Work Phone: Start: 05-05-2022 End: 05-05-2022 Patient encounter procedure Sarah Reilly OD Work Phone: Optometry Comment on above: Ocular hypertension of left eye (Primary Dx) Start: 03-10-2019 End: 03-11-2019 Patient encounter procedure Girish Simon Facility:[facility] Start: 11-23-2018 End: 11-24-2018 Patient encounter procedure [facility] Start: 06-24-2018 Patient encounter procedure [facility] Start: 06-02-2018 End: 06-02-2018 Patient encounter procedure [facility] Start: 06-02-2018 Patient encounter procedure [facility] Start: 05-24-2018 End: 05-25-2018 Patient encounter procedure Qarab H Rene Facility:[facility] Start: 06-16-2017 End: 06-16-2017 Ambulatory Pete N Dee Dee Facility:[facility] Girsih Simon Work Phone: [facility] Work Phone: Comment on above: ONSET AGE 12; Patient encounter procedure Girish Simon Work Phone: [facility] Work Phone: Procedures Date Procedure Procedure Detail Performing Clinician Start: 07-28-2025 Radiologic exam abdo men 1 view Tory Kumar DO Work Phone: Start: 07-28-2025 VERAB/VERIFY ABORH Tiffany Roman MD Work Phone: Start: 07-28-2025 Assay of lactate Jose Kumar DO Work Phone: Start: 07-28-2025 Blood typing serolog ic rh (d) Tiffany Roman MD Work Phone: Start: 07-28-2025 Ct abdomen & pelvis w/o contrast material Tory Kumar DO Work Phone: Start: 07-27-2025 Comprehensive metabo lic panel Tory Chinchilla Stacy DO Work Phone: Start: 07-23-2025 Lipid 1996 panel - S anmol or Plasma Tory Kumar DO Work Phone: Start: 07-23-2025 Thyrotropin [Units/v olume] in Serum or Plasma Tory Kumar DO Work Phone: Start: 07-20-2025 Glucose measurement Mar daniel Lu Lumerics DO Work Phone: Start: 07-20-2025 Glucose measurement [facility] Work Phone: Start: 07-20-2025 Drug screen quantita tive vancomycin Melanie Coleman [facility],PharmD Start: 07-20-2025 Renal function panel Ra morro Vernon MD Work Phone: Start: 07-19-2025 Glucose measurement [facility] Work Phone: Start: 07-19-2025 Glucose measurement [facility] Work Phone: Start: 07-19-2025 Renal function panel Ra morro Vernon MD Work Phone: Start: 07-19-2025 Glucose measurement [facility] Work Phone: Start: 07-19-2025 Glucose measurement [facility] Work Phone: Start: 07-18-2025 Glucose measurement [facility] Work Phone: Start: 07-18-2025 Glucose measurement [facility] Work Phone: Start: 07-18-2025 Glucose measurement [facility] Work Phone: Start: 07-18-2025 Glucose measurement [facility] Work Phone: Start: 07-18-2025 Drug screen quantita tive vancomycin Melanie Coleman RP,PharmD Start: 07-18-2025 Renal function panel Ra morro Vernon MD Work Phone: Start: 07-17-2025 Glucose measurement [facility] Work Phone: Start: 07-17-2025 Glucose measurement [facility] Work Phone: Start: 07-17-2025 Glucose measurement [facility] Work Phone: Start: 07-17-2025 Glucose measurement [facility] Work Phone: Start: 07-17-2025 Renal function panel Ra morro Vernon MD Work Phone: Start: 07-16-2025 Glucose measurement [facility] Work Phone: Start: 07-16-2025 Glucose measurement [facility] Work Phone: Start: 07-16-2025 Glucose measurement [facility] Work Phone: Start: 07-16-2025 Drug screen quantita tive vancomycin Radha Moses RPh,PharmD Start: 07-16-2025 Renal function panel Ra morro [facility] MD Work Phone: Start: 07-15-2025 Glucose measurement [facility] Work Phone: Start: 07-15-2025 Glucose measurement [facility] Work Phone: Start: 07-15-2025 End: 07-15-2025 Glucose measurement [facility] Work Phone: Start: 07-15-2025 Renal function panel Ra morro Vernon MD Work Phone: Start: 07-14-2025 Glucose measurement [facility] Work Phone: Start: 07-14-2025 Glucose measurement [facility] Work Phone: Start: 07-14-2025 Glucose measurement [facility] Work Phone: Start: 07-14-2025 Glucose measurement [facility] Work Phone: Start: 07-14-2025 Renal function panel Ra morro Vernon MD Work Phone: Start: 07-13-2025 Glucose measurement [facility] Work Phone: Start: 07-13-2025 Thromboplastin time partial plasma/whole blood Katie Caballero MD Work Phone: Start: 07-13-2025 Thromboplastin time partial plasma/whole blood Lisbeth Diop MD Work Phone: Start: 07-13-2025 Glucose measurement [facility] Work Phone: Start: 07-13-2025 Glucose measurement [facility] Work Phone: Start: 07-13-2025 Drug screen quantita tive vancomycin Melanie Coleman [facility],PharmD Start: 07-13-2025 End: 07-13-2025 Renal function panel Winston Vernon MD Work Phone: Start: 07-12-2025 Glucose measurement [facility] Work Phone: Start: 07-12-2025 Thromboplastin time partial plasma/whole blood Katie Caballero MD Work Phone: Start: 07-12-2025 Glucose measurement [facility] Work Phone: Start: 07-12-2025 Ct pelvis w/o contra st material Milton Pelz DO Work Phone: Start: 07-12-2025 Glucose measurement [facility] Work Phone: Start: 07-12-2025 Thromboplastin time partial plasma/whole blood Johnnie Marie MD Work Phone: Start: 07-12-2025 Glucose measurement [facility] Work Phone: Start: 07-12-2025 C-reactive protein Soledad Cooley BACKUP OPERATOR Work Phone: Start: 07-12-2025 Renal function panel Ra morro Vernon MD Work Phone: Start: 07-11-2025 Glucose measurement [facility] Work Phone: Start: 07-11-2025 Thromboplastin time partial plasma/whole blood Katie Caballero MD Work Phone: Start: 07-11-2025 Glucose measurement [facility] Work Phone: Start: 07-11-2025 End: 07-11-2025 Glucose measurement [facility] Work Phone: Start: 07-11-2025 CARDIOLOGY IR CHARGE Manny Fisher PA-C Work Phone: Start: 07-11-2025 Renal function panel Ra morro Vernon MD Work Phone: Start: 07-10-2025 Thromboplastin time partial plasma/whole blood Mackenzie Biggs BACKUP OPERATOR Work Phone: Start: 07-10-2025 Glucose measurement [facility] Work Phone: Start: 07-10-2025 Glucose measurement [facility] Work Phone: Start: 07-10-2025 Thromboplastin time partial plasma/whole blood Katie Caballero MD Work Phone: Start: 07-10-2025 Glucose measurement [facility] Work Phone: Start: 07-10-2025 Radex hip unilateral with pelvis 2-3 views Toño Stewart MD Work Phone: Start: 07-10-2025 Glucose measurement [facility] Work Phone: Start: 07-10-2025 Prothrombin time Tyrell B eer PA-C Work Phone: Start: 07-10-2025 C-reactive protein Toño Stewart MD Work Phone: Start: 07-10-2025 Renal function panel Ra morro Vernon MD Work Phone: Start: 07-09-2025 Glucose measurement [facility] Work Phone: Start: 07-09-2025 Thromboplastin time partial plasma/whole blood Katie Caballero MD Work Phone: Start: 07-09-2025 Glucose measurement [facility] Work Phone: Start: 07-09-2025 Thromboplastin time partial plasma/whole blood Mackenzie Biggs BACKUP OPERATOR Work Phone: Start: 07-09-2025 End: 07-09-2025 Glucose measurement [facility] Work Phone: Start: 07-09-2025 Renal function panel Ra morro Vernon MD Work Phone: Start: 07-08-2025 Glucose measurement [facility] Work Phone: Start: 07-08-2025 Blood count complete automated Nneka Jones DO Work Phone: Start: 07-08-2025 Glucose measurement [facility] Work Phone: Start: 07-08-2025 Glucose measurement [facility] Work Phone: Start: 07-08-2025 Glucose measurement [facility] Work Phone: Start: 07-08-2025 Renal function panel Ra morro Vernon MD Work Phone: Start: 07-08-2025 Thromboplastin time partial plasma/whole blood Mackenzie Biggs BACKUP OPERATOR Work Phone: Start: 07-07-2025 Glucose measurement [facility] Work Phone: Start: 07-07-2025 Thromboplastin time partial plasma/whole blood Mackenzie Biggs BACKUP OPERATOR Work Phone: Start: 07-07-2025 Glucose measurement [facility] Work Phone: Start: 07-07-2025 End: 07-07-2025 Mri brain brain stem w/o contrast material Radha Gale MD Work Phone: Start: 07-07-2025 Glucose measurement [facility] Work Phone: Start: 07-07-2025 Glucose measurement [facility] Work Phone: Start: 07-07-2025 End: 07-07-2025 Culture bacterial blood aerobic w/id isolates Toño Stewart MD Work Phone: Start: 07-07-2025 Renal function panel Ra morro Vernon MD Work Phone: Start: 07-06-2025 Glucose measurement [facility] Work Phone: Start: 07-06-2025 Glucose measurement [facility] Work Phone: Start: 07-06-2025 Glucose measurement [facility] Work Phone: Start: 07-06-2025 Glucose measurement [facility] Work Phone: Start: 07-06-2025 Renal function panel Ra morro Vernon MD Work Phone: Start: 07-05-2025 Glucose measurement [facility] Work Phone: Start: 07-05-2025 Thromboplastin time partial plasma/whole blood Kathy Poe PA-C Work Phone: Start: 07-05-2025 Glucose measurement [facility] Work Phone: Start: 07-05-2025 Glucose measurement [facility] Work Phone: Start: 07-05-2025 Thromboplastin time partial plasma/whole blood Mackenzie Biggs CNP Work Phone: Start: 07-05-2025 Renal function panel Ra morro Vernon MD Work Phone: Start: 07-05-2025 Creatine kinase total M wendy Schreiber [facility],PharmD Start: 07-04-2025 Glucose measurement Shreyas Dugan MD Work Phone: Start: 07-04-2025 Thromboplastin time partial plasma/whole blood Sharifa Tamayo [facility] Work Phone: Start: 07-04-2025 Glucose measurement Shreyas Dugan MD Work Phone: Start: 07-04-2025 Thromboplastin time partial plasma/whole blood Sharifa Tamayo [facility] Work Phone: Start: 07-04-2025 Glucose measurement Shreyas Dugan MD Work Phone: Start: 07-04-2025 Glucose measurement Shreyas Dugan MD Work Phone: Start: 07-04-2025 Thromboplastin time partial plasma/whole blood Lenny Andrews [facility] Work Phone: Start: 07-04-2025 Glucose measurement Shreyas Dugan MD Work Phone: Start: 07-04-2025 Radiologic exam swal low function contrast study Keyshawn Burton [facility] Work Phone: Start: 07-04-2025 Culture bacterial bl ood aerobic w/id isolates Toño Stewart MD Work Phone: Start: 07-04-2025 Renal function panel Ra morro Vernon MD Work Phone: Start: 07-04-2025 Glucose measurement Shreyas Dugan MD Work Phone: Start: 07-04-2025 Thromboplastin time partial plasma/whole blood Erum Diego MD Work Phone: Start: 07-03-2025 Glucose measurement Shreyas Dugan MD Work Phone: Start: 07-03-2025 Glucose measurement Shreyas Dugan MD Work Phone: Start: 07-03-2025 Iadna-dna/rna gi pth gn multiplex probe tq 6-11 Rhys BOATENG-C Work Phone: Start: 07-03-2025 Thromboplastin time partial plasma/whole blood Keyshawn Burton BACKUP OPERATOR Work Phone: Start: 07-03-2025 Glucose measurement Shreyas Dugan MD Work Phone: Start: 07-03-2025 Renal function panel Bennett mushtaq Mi PA-C Work Phone: Start: 07-03-2025 Glucose measurement Shreyas Dugan MD Work Phone: Start: 07-03-2025 Renal function panel Bennett mushtaq GRIFFITHSC Work Phone: Start: 07-03-2025 Glucose measurement Shreyas Dugan MD Work Phone: Start: 07-03-2025 Calcium ionized Mackenzie A nne Biggs BACKUP OPERATOR Work Phone: Start: 07-03-2025 Renal function panel Bennett mushtaq Mi PA-C Work Phone: Start: 07-02-2025 Glucose measurement Shreyas Dugan MD Work Phone: Start: 07-02-2025 Glucose measurement Shreyas Dugan MD Work Phone: Start: 07-02-2025 Renal function panel Bennett mushtaq Mi PA-C Work Phone: Start: 07-02-2025 Glucose measurement Shreyas Dugan MD Work Phone: Start: 07-02-2025 Radiologic examinati on foot 2 views Vincenzo GRIFFITHSC Work Phone: Start: 07-02-2025 End: 07-02-2025 Dup-scan xtr veins complete bilateral study Keyshawn Burton BACKUP OPERATOR Work Phone: Start: 07-02-2025 Glucose measurement Shreyas Dugan MD Work Phone: Start: 07-02-2025 Hepatic function panel Toño Stewart MD Work Phone: Start: 07-02-2025 Renal function panel Bennett landin Gaye BOATENG-C Work Phone: Start: 07-02-2025 End: 07-02-2025 Culture bacterial blood aerobic w/id isolates Toño Stewart MD Work Phone: Start: 07-02-2025 Glucose measurement Shreyas Dugan MD Work Phone: Start: 07-02-2025 Drug screen quantita tive vancomycin [facility] Start: 07-02-2025 Renal function panel Bennett mushtaq BOATENG-C Work Phone: Start: 07-02-2025 Glucose measurement Shreyas Dugan MD Work Phone: Start: 07-02-2025 Comprehensive metabo lic panel Adrianne Gaye BOATENG-C Work Phone: Start: 07-01-2025 Renal function panel Bennett landin Gaye BOATENG-C Work Phone: Start: 07-01-2025 Drug screen quantita tive vancomycin [facility] Start: 07-01-2025 Renal function panel Bennett mushtaq BOATENG-C Work Phone: Start: 07-01-2025 Basic metabolic pane l calcium total Mackenzie Biggs BACKUP OPERATOR Work Phone: Start: 07-01-2025 End: 07-01-2025 Glucose measurement Princess Dugan MD Work Phone: Start: 06-30-2025 Glucose measurement Shreyas Dugan MD Work Phone: Start: 06-30-2025 Thromboplastin time partial plasma/whole blood Sharifa Silveriozabeth Roni BACKUP OPERATOR Work Phone: Start: 06-30-2025 Glucose measurement Shreyas Dugan MD Work Phone: Start: 06-30-2025 Radiologic exam abdo men 1 view Sharifadong Tamayo BACKUP OPERATOR Work Phone: Start: 06-30-2025 Radiologic exam ches t single view Sharifadong Tamayo BACKUP OPERATOR Work Phone: Start: 06-30-2025 Glucose measurement Shreyas Dugan MD Work Phone: Start: 06-30-2025 Ct thorax w/contrast material Vincenzo Dugan PA-C Work Phone: Start: 06-30-2025 Ct head/brain w/o co ntrast material Vincenzo Dugan PA-C Work Phone: Start: 06-30-2025 Thromboplastin time partial plasma/whole blood Mackenzie Cunha Kalyan BACKUP OPERATOR Work Phone: Start: 06-30-2025 Glucose measurement Shreyas Dugan MD Work Phone: Start: 06-30-2025 Glucose measurement Shreyas Dugan MD Work Phone: Start: 06-30-2025 Glucose measurement Shreyas Dugan MD Work Phone: Start: 06-30-2025 Basic metabolic pane l calcium total Mackenzie Cunha Kalyan BACKUP OPERATOR Work Phone: Start: 06-30-2025 Drug screen quantita tive vancomycin Radha Covarrubias [facility]arm[facility] Start: 06-29-2025 Glucose measurement Shreyas Dugan MD Work Phone: Start: 06-29-2025 Glucose measurement Shreyas Dugan MD Work Phone: Start: 06-29-2025 Glucose measurement Shreyas Dugan MD Work Phone: Start: 06-29-2025 Echo transesophag r- t 2d w/prb img acquisj i&r Vincenzo Dugan PA-C Work Phone: Start: 06-29-2025 Blood pathogens pane l by KATYA with non-probe detection in Positive blood culture Vincenzo Dugan PA-C Work Phone: Start: 06-29-2025 End: 06-29-2025 Culture bacterial blood aerobic w/id isolates Vincenzo Dugan PA-C Work Phone: Start: 06-29-2025 Radiologic exam abdo men 1 view Sharifa Tamayo [facility] Work Phone: Start: 06-29-2025 Glucose measurement Shreyas Dugan MD Work Phone: Start: 06-29-2025 Radiologic exam ches t single view Keyshawn Maurm [facility] Work Phone: Start: 06-29-2025 Thromboplastin time partial plasma/whole blood Mackenzie Guerline Biggs BACKUP OPERATOR Work Phone: Start: 06-29-2025 Glucose measurement Shreyas Dugan MD Work Phone: Start: 06-29-2025 Glucose measurement Shreyas Dugan MD Work Phone: Start: 06-29-2025 Basic metabolic pane l calcium total Mackenzie Biggs BACKUP OPERATOR Work Phone: Start: 06-29-2025 Iaad ia hepatitis b surface antigen Adrianne Mi PA-C Work Phone: Start: 06-29-2025 Glucose measurement Shreyas Dugan MD Work Phone: Start: 06-28-2025 Glucose measurement Shreyas Dugan MD Work Phone: Start: 06-28-2025 Radiologic exam ches t single view Mackenzie Biggs BACKUP OPERATOR Work Phone: Start: 06-28-2025 End: 06-28-2025 Computerized tomography, limited studies Giselle Payne MD Work Phone: Start: 06-28-2025 Radiographic imaging procedure Giselle Payne MD Work Phone: Start: 06-28-2025 Ecg routine ecg w/le ast 12 lds w/i&r Steam Turbine Operator Generic Start: 06-28-2025 Glucose measurement Shreyas Dugan MD Work Phone: Start: 06-28-2025 Radiologic exam abdo men 1 view Mackenzie Biggs BACKUP OPERATOR Work Phone: Start: 06-28-2025 Gases blood ph direc t ras xcpt pulse oximitry Giselle Payne MD Work Phone: Start: 06-28-2025 Complete blood count with white cell differential, manual Mackenzie Biggs BACKUP OPERATOR Work Phone: Start: 06-28-2025 Comprehensive metabo lic panel Mackenzie Biggs [facility] Work Phone: Start: 06-28-2025 Glucose measurement Deonna Payne MD Work Phone: Start: 06-28-2025 EXTERNAL LAB SCAN Toño Stewart MD Work Phone: Start: 06-25-2025 SARS-CoV-2, Influenz a & RSV (PCR) Donal Will MD Work Phone: Start: 06-25-2025 Oxygen measurement Alka Will MD Work Phone: Start: 06-25-2025 CT of abdomen and pe lvis without contrast Donal Will MD Work Phone: Start: 06-25-2025 Estimated creatinine clearance Donal Will MD Work Phone: Start: 06-25-2025 CT angiography of ch est with contrast Donal Will MD Work Phone: Start: 06-25-2025 CT cervical spine wi thout contrast Donal Will MD Work Phone: Start: 06-25-2025 CT of head without contrast Donal Will MD Work Phone: Start: 05-31-2025 Intravitreal njx pharmacologic agt spx Sergo Chirinos MD, PhD Work Phone: Start: 05-31-2025 Computerized ophthal delia imaging retina Sergo Chirinos MD, PhD Work Phone: Start: 05-21-2025 Clostridium difficil e detection Donal Will MD Work Phone: Start: 05-21-2025 Nucleic acid assay Alka Will MD Work Phone: Start: 05-21-2025 Procedure Donal rincon MD Work Phone: Comment on above: Test Ordered: [id number] Stool CultureSalmonella/Shigella Screen Note: CB Final report Reference Range: .Result 1 Comment CB Reference Range: .No Salmonella or Shigella recovered.Campylobacter Culture Note: CB Final report Reference Range: .Result 1 Comment CB Reference Range: .No Campylobacter species isolated.E coli Shiga Toxin EIA Negative CB Reference Range: NegativePerformed at: - Lab[address] [id number] Director: Rhys Fontanez PhD, Phone: [phone] Start: 05-16-2025 Parathyroid hormone measurement Donal Will MD Work Phone: Start: 03-23-2025 Estimated creatinine clearance Donal Will MD Work Phone: Start: 03-20-2025 Kidney biopsy Donal mays MD Work Phone: Start: 03-19-2025 Anaerobic microbial culture Donal Will MD Work Phone: Start: 03-19-2025 Fungus stain method Shadia Will MD Work Phone: Start: 03-19-2025 Gram stain microscopy Carlos Will MD Work Phone: Start: 03-19-2025 End: 03-19-2025 Microbial culture, routine Donal Chinchilla Work Phone: Start: 03-19-2025 Mycology culture Donal Will MD Work Phone: Start: 03-19-2025 Amputation of toe Aleksandr Will MD Work Phone: Start: 03-16-2025 Gram stain microscopy Carlos Will MD Work Phone: Start: 03-16-2025 End: 03-16-2025 Microbial culture, routine Donal Chinchilla Work Phone: Start: 03-16-2025 Plain chest X-ray Aleksandr Will MD Work Phone: Start: 03-16-2025 X-ray of foot, three or more views Donal Will MD Work Phone: Start: 03-16-2025 Fluoroscopic guidance Carlos Will MD Work Phone: Start: 03-16-2025 Insertion of hemodia lysis catheter Donal Will MD Work Phone: Start: 03-16-2025 Bacterial nucleic acid assay Donal Will MD Work Phone: Start: 03-15-2025 Antibody measurement Ch cuca Will MD Work Phone: Comment on above: The atypical pANCA p attern has been observed in asignificant percentage of patients with ulcerative colitis,primary sclerosing cholangitis and autoimmune hepatitis. Start: 03-15-2025 C>3< complement assay C aquilino Will MD Work Phone: Start: 03-14-2025 Urine culture Donal mays MD Work Phone: Start: 03-14-2025 Complete ultrasound of kidneys and bladder Donal Will MD Work Phone: Start: 03-13-2025 Osmolality measureme nt, serum Donal Will MD Work Phone: Start: 03-13-2025 Chloride measurement, urine Donal Will MD Work Phone: Start: 03-13-2025 Urea nitrogen measur ement, urine Donal Will MD Work Phone: Start: 03-13-2025 Urnls dip stick/tabl et reagent auto microscopy Donal Will MD Work Phone: Start: 03-13-2025 X-ray of chest, PA a nd lateral views Donal Will MD Work Phone: Start: 03-13-2025 Serum inorganic phos phate measurement Donal Will MD Work Phone: Start: 02-15-2025 Intravitreal njx pharmacologic agt spx Sergo Chirinos MD, PhD Work Phone: Start: 02-15-2025 OCT ANGIOGRAPHY OU ( BOTH EYES) Sergo Chirinos MD, PhD Work Phone: Start: 02-15-2025 Computerized ophthal delia imaging retina Sergo Chirinos MD, PhD Work Phone: Start: 12-08-2024 Measurement of renal function Donal Will MD Work Phone: Comment on above: GFR Calc Start: 12-01-2024 Measurement of renal function Donal Will MD Work Phone: Comment on above: GFR Calc Start: 11-30-2024 Intravitreal njx pharmacologic agt spx Sergo Chirinos MD, PhD Work Phone: Start: 11-30-2024 Computerized ophthal delia imaging retina Sergo Chirinos MD, PhD Work Phone: Start: 11-06-2024 Gram stain microscopy C aquilino Will MD Work Phone: Start: 11-06-2024 Microbial culture Aleksandr Will MD Work Phone: Start: 11-02-2024 Plain chest X-ray Aleksandr Will MD Work Phone: Start: 10-31-2024 Plain chest X-ray Aleksandr Will MD Work Phone: Start: 10-30-2024 CT angiography of ch est with contrast Donal Will MD Work Phone: Start: 10-30-2024 X-ray of chest, PA a nd lateral views Donal Will MD Work Phone: Start: 10-18-2024 Blood culture Donal mays MD Work Phone: Start: 10-18-2024 Legionella pneumophi la antigen assay Donal Will MD Work Phone: Start: 10-18-2024 Nucleic acid assay Alka Will MD Work Phone: Start: 10-18-2024 Streptococcus pneumo niae antigen assay Donal Will MD Work Phone: Start: 10-18-2024 CT of chest without contrast Donal Will MD Work Phone: Start: 10-17-2024 Plain chest X-ray Aleksandr Will MD Work Phone: Start: 10-17-2024 SARS-CoV-2, Influenz a & RSV (PCR) Donal Will MD Work Phone: Start: 10-13-2024 X-ray of chest, PA a nd lateral views Donal Will MD Work Phone: Start: 10-05-2024 Intravitreal njx pharmacologic agt spx Sergo Chirinos MD, PhD Work Phone: Start: 10-05-2024 Computerized ophthal delia imaging retina Sergo Chirinos MD, PhD Work Phone: Start: 08-24-2024 Intravitreal njx pharmacologic agt spx Yen Gamboa MD Work Phone: Start: 08-24-2024 Computerized ophthal delia imaging retina Sergo Chirinos MD, PhD Work Phone: Start: 07-20-2024 Intravitreal njx pharmacologic agt spx Sergo Chirinos MD, PhD Work Phone: Start: 07-20-2024 Computerized ophthal delia imaging retina Sarah Reilly OD Work Phone: Start: 09-30-2023 Glucose quantitative blood xcpt reagent strip Dilan Liz MD Work Phone: Start: 09-27-2023 Visual field xm uni/ bi w/interp extended exam Dilan Liz MD Work Phone: Start: 09-02-2023 Computerized ophthal delia imaging retina Sarah Reilly OD Work Phone: Start: 08-26-2023 Glucose quantitative blood xcpt reagent strip Dilan Liz MD Work Phone: Start: 08-04-2023 Fundus photography w/interpretation & report Dilan Liz MD Work Phone: Start: 08-04-2023 Computerized ophthal delia imaging retina Dilan Liz MD Work Phone: Start: 08-04-2023 IOL BIOMETRY W/ IOL CALC OU (BOTH EYES) Dilan Liz MD Work Phone: Start: 08-04-2023 End: 08-04-2023 Visual field xm uni/bi w/interp extended exam Dilan Liz MD Work Phone: Start: 07-20-2023 Mammography Dilan cerda MD Work Phone: Start: 11-19-2022 Plain X-ray of hip Dr. Girish Simon Work Phone: Start: 11-19-2022 Total Hip Replacemen t Robotic Arm Assist (Right) Dr. Girish Simon Work Phone: Start: 11-10-2022 MRI of lower extremity Dr. Girish Simon Work Phone: Start: 10-01-2022 Proph rta dtchmnt w/ o drg 1/> sess Sergo Chirinos MD, PhD Work Phone: Start: 10-01-2022 Computerized ophthal delia imaging retina Sergo Chirinos MD, PhD Work Phone: Start: 09-08-2022 End: 09-08-2022 Visual field xm uni/bi w/interp extended exam Sarah Dangelo Giovanny OD Work Phone: Start: 09-05-2014 Total abdominal hyst erectomy with bilateral salpingo-oophorectomy Girish Simon Work Phone: Comment on above: 09/05/2014; Cholecystectomy Girish benedict Work Phone: Comment on above: 1997; Nasal Screen MRSA/MSSA Dr. Renée Simon Work Phone: Plan of Treatment Date Care Activity Detail Author Start: 07-27-2026 Creatinine measurement Creatinine Level [facility] Start: 07-27-2026 Potassium measurement Potassium Level [facility] Start: 07-23-2026 Lipid panel Lipid Panel [facility] Start: 07-23-2026 Thyroid stimulating hormone measurement TSH Level [facility] Start: 06-15-2026 End: 11-22-2026 OCT ANGIOGRAPHY OU (BOTH EYES) OCT ANGIOGRAPHY OU (BOTH EYES) [facility] Imaging Routine 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 without macular edema, without long-term current use of insulin (HCC) Expected: 06/15/2026, Expires: 11/22/2026 [facility] Comment on above: Expected: 06/15/2026, Expires: Start: 06-15-2026 End: 11-22-2026 OCT MACULA CIRRUS OU (BOTH EYES) OCT MACULA CIRRUS OU (BOTH EYES) [facility] Routine 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 without macular edema, without long-term current use of insulin (HCC) Expected: 06/15/2026, Expires: 11/22/2026 [facility] Work Phone: Comment on above: Expected: 06/15/2026, Expires: Start: 05-31-2026 Glaucoma screening Diabetic Eye Exam [facility] Start: 03-02-2026 End: 08-09-2026 OCT MACULA CIRRUS OU (BOTH EYES) OCT MACULA CIRRUS OU (BOTH EYES) [facility] Routine 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 without macular edema, without long-term current use of insulin (HCC) Expected: 03/02/2026, Expires: 08/09/2026 [facility] Work Phone: Comment on above: Expected: 03/02/2026, Expires: Start: 01-31-2026 eGFR Diabetes eGFR Diabetes [facility] Start: 01-20-2026 Hemoglobin A1c measurement A1C [facility] Start: 01-20-2026 Medicare Annual Wellness Visit Medicare Annual Wellness Visit (AWV) [facility] Start: 01-17-2026 eGFR Diabetes eGFR Diabetes [facility] Start: 12-29-2025 Hemoglobin A1c measurement A1C [facility] Start: 12-15-2025 End: 05-24-2026 OCT ANGIOGRAPHY OU (BOTH EYES) OCT ANGIOGRAPHY OU (BOTH EYES) [facility] Routine 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 without macular edema, without long-term current use of insulin (HCC) Expected: 12/15/2025, Expires: 05/24/2026 [facility] Comment on above: Expected: 12/15/2025, Expires: Start: 12-15-2025 End: 05-24-2026 OCT MACULA CIRRUS OU (BOTH EYES) OCT MACULA CIRRUS OU (BOTH EYES) [facility] Routine 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 without macular edema, without long-term current use of insulin (HCC) Expected: 12/15/2025, Expires: 05/24/2026 [facility] Work Phone: Comment on above: Expected: 12/15/2025, Expires: Start: 10-22-2025 Hemoglobin A1c measurement Diabetes: Hemoglobin A1C [facility] Start: 10-20-2025 End: 03-29-2026 OCT MACULA CIRRUS OU (BOTH EYES) OCT MACULA CIRRUS OU (BOTH EYES) [facility] Routine 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 without macular edema, without long-term current use of insulin (HCC) Expected: 10/20/2025, Expires: 03/29/2026 [facility] Work Phone: Comment on above: Expected: 10/20/2025, Expires: Start: 09-20-2025 End: 09-20-2025 Patient encounter procedure 09/20/2025 2:00 PM EST Office Visit [facility] [address] [place] [id number] Sergo Chirinos MD, PhD [address] [place] [address] [facility] [address] [address] DFE/ OCT/OCTa both eyes ? avastin. Ophthalmology Comment on above: DFE/ OCT/OCTa both eyes ? avastin. Start: 09-12-2025 End: 09-12-2025 Patient encounter procedure 09/12/2025 1:00 PM EDT Office Visit [facility] [address] [place] [address] Sarah Reilly II, OD [address] [place] [address] Eye exam [facility] Comment on above: Eye exam [facility] Start: 08-28-2025 End: 08-28-2025 Follow-up encounter 08/28/2025 8:30 AM EDT Follow-Up [facility] [address] [place] [address] Asia Conway, [address] [place] [address] [facility] Start: 08-23-2025 End: 08-23-2025 ambulatory [facility] Start: 08-23-2025 End: 08-23-2025 Patient encounter procedure 08/23/2025 9:45 AM EDT Office Visit [facility] [address] [place] [phone] Madhu Cai MD [address] [place] [address] [facility] Start: 08-21-2025 End: 08-21-2025 ambulatory [facility] Start: 08-21-2025 End: 08-21-2025 Patient encounter procedure 08/21/2025 12:30 PM EDT Office Visit [facility] [address] [place] [address] Toño Stewart MD [address] [place] [id number] [facility] Start: 08-04-2025 End: 01-11-2026 OCT MACULA CIRRUS OU (BOTH EYES) OCT MACULA CIRRUS OU (BOTH EYES) [facility] Imaging Routine 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 Work Phone: Comment on above: Expected: 08/04/2025, Expires: Start: 07-20-2025 Glaucoma screening Dilated Retinal Exam [facility] Start: 07-20-2025 Screening for osteoporosis Bone Density Scan [facility] Start: 07-16-2025 COVID-19 Vaccine ( season) COVID-19 Vaccine ( season) [facility] Start: 07-16-2025 COVID-19 Vaccine ( season) COVID-19 Vaccine ( season) [facility] Start: 07-16-2025 Influenza vaccination Influenza Vaccine (#1) [facility] Start: 06-25-2025 Bacteria identified in Blood by Culture Blood Culture [facility] Start: 06-25-2025 [facility] Start: 06-25-2025 Serum inorganic phosphate measurement [facility] Start: 06-25-2025 Admission procedure [facility] Start: 06-25-2025 Verification routine [facility] Start: 06-25-2025 Hospital admission, emergency, from emergency room, medical nature [facility] Start: 06-25-2025 End: 06-25-2025 [facility] Start: 2025 Respiratory Syncytial Virus Immunization: Risk, 60-74 Risk, or 75+ (1 - 1-dose 75+ series) Respiratory Syncytial Virus Immunization: Risk, 60-74 Risk, or 75+ (1 - 1-dose 75+ series) [facility] Start: 2025 RSV High Risk: (Elderly (60+) or Population) (1 - 1-dose 75+ series) RSV High Risk: (Elderly (60+) or Population) (1 - 1-dose 75+ series) [facility] Start: 05-31-2025 End: 05-31-2025 Patient encounter procedure 05/31/2025 10:45 AM EDT Office Visit [facility] [address] [place], [place] [id number] Sergo Chirinos MD, PhD [address] [place] [address] *15 weeks (around 05/31/2025) for STI avastin OD/ OCT. Ophthalmology Comment on above: *15 weeks (around 05/31/2025) for STI france stin OD/ OCT. Start: 05-21-2025 Clostridioides difficile (PCR) Clostridioides difficile (PCR) [facility] Start: 05-21-2025 Enteric Bacteriology Enteric Bacteriology [facility] Start: 05-21-2025 Procedure [facility] Start: 04-24-2025 OCT OPTIC NERVE CIRRUS OU (BOTH EYES) OCT OPTIC NERVE CIRRUS OU (BOTH EYES) [facility] Imaging Routine Ocular hypertension of left eye Expected: 04/24/2025 [facility] Work Phone: Comment on above: Expected: 04/24/2025 Start: 04-24-2025 VISUAL FIELD 24-2 OU (BOTH EYES) VISUAL FIELD 24-2 OU (BOTH EYES) [facility] Routine Ocular hypertension of left eye Expected: 04/24/2025 [facility] Work Phone: Comment on above: Expected: 04/24/2025 Start: 03-27-2025 Covid-19 Vaccine () Covid-19 Vaccine () [facility] Start: 03-27-2025 Complete blood count [facility] Start: 03-26-2025 Complete blood count [facility] Start: 03-25-2025 Complete blood count [facility] Start: 03-24-2025 Complete blood count [facility] Start: 03-23-2025 Patient discharge [facility] Start: 03-23-2025 Care of hemodialysis equipment [facility] Start: 03-23-2025 Hemodialysis care [facility] Start: 03-23-2025 [facility] Start: 03-21-2025 Care of hemodialysis equipment [facility] Start: 03-21-2025 Hemodialysis care [facility] Start: 03-21-2025 [facility] Start: 03-20-2025 Dietary regime [facility] Start: 03-20-2025 Consultation [facility] Start: 03-19-2025 End: 03-19-2025 [facility] Start: 03-19-2025 Referral to service [facility] Start: 03-19-2025 Anaerobic microbial culture Anaerobic Culture [facility] Start: 03-19-2025 Fungal Culture Fungal Culture [facility] Start: 03-19-2025 Fungal Smear Fungal Smear [facility] Start: 03-19-2025 Microbial culture, routine Wound Culture [facility] Start: 03-19-2025 Mycology culture [facility] Start: 03-19-2025 Source specific culture [facility] Start: 03-19-2025 Care of hemodialysis equipment [facility] Start: 03-19-2025 Hemodialysis care [facility] Start: 03-19-2025 [facility] Start: 03-17-2025 Care of hemodialysis equipment [facility] Start: 03-17-2025 Hemodialysis care [facility] Start: 03-17-2025 End: 03-17-2025 [facility] Start: 03-16-2025 Wound care [facility] Start: 03-16-2025 Care of hemodialysis equipment [facility] Start: 03-16-2025 Hemodialysis care [facility] Start: 03-16-2025 End: 03-16-2025 [facility] Start: 03-16-2025 Referral to cinema operator [facility] Start: 03-15-2025 Consultation for treatment [facility] Start: 03-15-2025 Consultation [facility] Start: 03-15-2025 Patient referral to dietitian [facility] Start: 03-15-2025 Referral to general surgeon [facility] Start: 03-14-2025 Referral to occupational therapist [facility] Start: 03-14-2025 Referral to service [facility] Start: 03-14-2025 Following clinical pathway protocol [facility] Start: 03-14-2025 Providing care according to standard [facility] Start: 03-14-2025 Oxygen therapy [facility] Start: 03-13-2025 Ambulation without limitation [facility] Start: 03-13-2025 Assessment of risk of venous thromboembolism [facility] Start: 03-13-2025 Insertion of catheter into peripheral vein [facility] Start: 03-13-2025 Measuring intake and output [facility] Start: 03-13-2025 Providing care according to standard [facility] Start: 03-13-2025 Referral to line technician [facility] Start: 03-13-2025 Referral to table assembler metal [facility] Start: 03-13-2025 [facility] Start: 03-13-2025 Electrolytes measurement, urine [facility] Start: 03-13-2025 [facility] Start: 03-13-2025 Osmolality measurement, serum [facility] Start: 03-13-2025 Verification routine [facility] Start: 03-13-2025 Admission procedure [facility] Start: 03-13-2025 Hospital admission, emergency, from emergency room, medical nature [facility] Start: 03-13-2025 [facility] Start: 03-13-2025 [facility] Start: 02-15-2025 End: 02-15-2025 Patient encounter procedure 02/15/2025 10:45 AM EDT Office Visit [facility] [address] [place] [address] Sergo Chirinos MD, PhD [address] [place] [address] 11 weeks (around 02/15/2025) for DFE/ OCT/OCTa both eyes ? avastin. Ophthalmology Comment on above: 11 weeks (around 02/15/2025) for DFE/ OCT/ OCTa both eyes ? avastin. Start: 11-30-2024 End: 11-30-2024 Patient encounter procedure 11/30/2024 9:15 AM EST Office Visit [facility] [address] [place] [address] Sergo Chirinos MD, PhD [address] [place] [address] STI avastin OD/ OCT- okay to overbook at 9:15 Ophthalmology Comment on above: STI avastin OD/ OCT- okay to overbook at 9:15 Start: 11-15-2024 Advance Directive Discussion Advance Directive Discussion [facility] Start: 11-15-2024 Medicare Advantage Annual Wellness Visit Medicare Advantage Annual Wellness Visit [facility] Start: 11-02-2024 Patient discharge [facility] Start: 10-31-2024 [facility] Start: 10-31-2024 Inhalation therapy procedure [facility] Start: 10-30-2024 Assessment of risk of venous thromboembolism [facility] Start: 10-30-2024 Care regimes management [facility] Start: 10-30-2024 Elevation of affected extremity [facility] Start: 10-30-2024 Insertion of catheter into peripheral vein [facility] Start: 10-30-2024 Measuring intake and output [facility] Start: 10-30-2024 Notification of physician [facility] Start: 10-30-2024 Oxygen therapy [facility] Start: 10-30-2024 Patient education [facility] Start: 10-30-2024 Providing care according to standard [facility] Start: 10-30-2024 Provision of activity privileges [facility] Start: 10-30-2024 Referral to occupational therapist [facility] Start: 10-30-2024 Referral to service [facility] Start: 10-30-2024 End: 10-30-2024 [facility] Start: 10-30-2024 Following clinical pathway protocol [facility] Start: 10-30-2024 Admission procedure [facility] Start: 10-21-2024 Patient discharge [facility] Start: 10-20-2024 Continuous pulse oximetry [facility] Start: 10-19-2024 Continuous positive airway pressure ventilation treatment [facility] Start: 10-18-2024 Oxygen therapy [facility] Start: 10-18-2024 Application of intermittent pneumatic compression device [facility] Start: 10-18-2024 Following clinical pathway protocol [facility] Start: 10-18-2024 Cardiac monitoring [facility] Start: 10-18-2024 Catheterization of vein [facility] Start: 10-18-2024 Notification of physician [facility] Start: 10-18-2024 Referral to line technician [facility] Start: 10-18-2024 [facility] Start: 10-18-2024 Admission procedure [facility] Start: 10-05-2024 End: 10-05-2024 Patient encounter procedure Ophthalmology Comment on above: STI AVASTIN RE *4-6 W STI AVASTIN O D PER SASTRY Start: 09-06-2024 End: 09-06-2024 Patient encounter procedure 09/06/2024 1:00 PM EDT Office Visit [facility] [address] [place] [address] Sarah Reilly II, OD [address] [place] [address] Eye exam [employer] Comment on above: Eye exam [employer] Start: 08-24-2024 End: 08-24-2024 Patient encounter procedure 08/24/2024 11:00 AM EDT Office Visit [facility] [address] [place] [address] Yen Gamboa MD [address] [place] [address] STI AVASTIN RE Ophthalmology Comment on above: STI AVASTIN RE Start: 08-04-2024 Glaucoma screening Dilated Retinal Exam [facility] Start: 08-04-2024 Hepatitis C antibody, confirmatory test Dilated Retinal Exam [facility] Start: 07-20-2024 Mammography Mammogram Screening [facility] Start: 07-20-2024 Screening for malignant neoplasm of breast [facility] Start: 07-16-2024 Covid-19 Vaccine ( season) Covid-19 Vaccine () [facility] Start: 07-16-2024 Covid-19 Vaccine () Covid-19 Vaccine () [facility] Start: 07-16-2024 Influenza vaccination Influenza Vaccine (#1) [facility] Start: 04-24-2024 OCT OPTIC NERVE CIRRUS OU (BOTH EYES) OCT OPTIC NERVE CIRRUS OU (BOTH EYES) [facility] Imaging Routine Ocular hypertension of left eye Expected: 04/24/2024 [facility] Work Phone: Comment on above: Expected: 04/24/2024 Start: 04-24-2024 VISUAL FIELD 24-2 OU (BOTH EYES) VISUAL FIELD 24-2 OU (BOTH EYES) [facility] Imaging Routine Ocular hypertension of left eye Expected: 04/24/2024 [facility] Work Phone: Comment on above: Expected: 04/24/2024 Start: 12-03-2023 Hepatitis C antibody, confirmatory test DILATED RETINAL EXAM [facility] Start: 11-15-2023 Advance Directive Discussion Advance Directive Discussion [facility] Start: 11-15-2023 Depression Assessment Depression Assessment [facility] Start: 10-01-2023 Hepatitis C antibody, confirmatory test DILATED RETINAL EXAM [facility] Start: 09-30-2023 End: 09-30-2023 Xcapsl ctrc rmvl insj io lens prosth w/o ecp Phacoemulsification Cataract with Insertion Intraocular Lens Combined forms of age-related cataract of right eye 09/30/2023 9:55 AM EST [facility] Start: 08-26-2023 End: 08-26-2023 Phacoemulsification Cataract with Insertion Intraocular Lens Phacoemulsification Cataract with Insertion Intraocular Lens Combined 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 08/26/2023 12:17 PM T [facility] Work Phone: Start: 07-16-2023 Covid-19 Vaccine () Covid-19 Vaccine () [facility] Start: 07-16-2023 Influenza vaccination Influenza Vaccine (#1) [facility] Start: 03-22-2023 YEE, Provider: Alejandra Cutler, Status: Pen, Time: 2:00 PM YEE, Provider: Alejandra Cutler, Status: Pen, Time: 2:00 PM [facility] Start: 02-15-2023 PTRARLETTE, Provider: Alejandra Cutler, Status: Pen, Time: 4:30 PM PTRISAAKECKJose, Provider: Alejandra Cutler, Status: Pen, Time: 4:30 PM [facility] Work Phone: Start: 02-12-2023 PTFUADULT4, Provider: Giselle Guzman, Status: Pen, Time: 1:15 PM PTFUADULT4, Provider: Giselle Guzman, Status: Pen, Time: 1:15 PM [facility] Work Phone: Start: 02-08-2023 PTFUADULT4, Provider: Giselle Guzman, Status: Pen, Time: 1:15 PM PTFUADULT4, Provider: Giselle Guzman, Status: Pen, Time: 1:15 PM [facility] Work Phone: Start: 02-05-2023 PTFUADULT4, Provider: Giselle Guzman, Status: Pen, Time: 2:45 PM PTFUADULT4, Provider: Giselle Guzman, Status: Pen, Time: 2:45 PM [facility] Work Phone: Start: 02-03-2023 PTFUADULT4, Provider: Giselle Guzman, Status: Pen, Time: 2:45 PM PTFUADULT4, Provider: Giselle Guzman, Status: Pen, Time: 2:45 PM [facility] Work Phone: Start: 01-29-2023 PTFUADULT4, Provider: Yahaira West, Status: Pen, Time: 10:45 AM PTFUADULT4, Provider: Yahaira West, Status: Pen, Time: 10:45 AM [facility] Work Phone: Start: 01-15-2023 PTFUADULT4, Provider: Giselle Guzman, Status: Pen, Time: 1:15 PM PTFUADULT4, Provider: Giselle Guzman, Status: Pen, Time: 1:15 PM [facility] Work Phone: Start: 01-11-2023 PTRECHECKA, Provider: Alejandra Cutler, Status: Pen, Time: 2:00 PM PTRECHECKA, Provider: Alejandra Cutler, Status: Pen, Time: 2:00 PM [facility] Work Phone: Start: 01-08-2023 PTFUADULT4, Provider: Giselle Guzman, Status: Pen, Time: 1:15 PM PTFUADULT4, Provider: Giselle Guzman, Status: Pen, Time: 1:15 PM [facility] Work Phone: Start: 01-04-2023 PTFUADULT4, Provider: Giselle Guzman, Status: Pen, Time: 1:15 PM PTFUADULT4, Provider: Giselle Guzman, Status: Pen, Time: 1:15 PM [facility] Work Phone: Start: 01-01-2023 PTFUADULT4, Provider: Giselle Guzman, Status: Pen, Time: 1:15 PM PTFUADULT4, Provider: Giselle Guzman, Status: Pen, Time: 1:15 PM [facility] Work Phone: Start: 12-30-2022 Hepatitis C antibody, confirmatory test DILATED RETINAL EXAM [facility] Start: 12-28-2022 PTFUADULT4, Provider: Giselle Guzman, Status: Pen, Time: 11:30 AM PTFUADULT4, Provider: Giselle Guzman, Status: Pen, Time: 11:30 AM [facility] Work Phone: Start: 12-25-2022 PTFUADULT4, Provider: Giselle Guzman, Status: Pen, Time: 1:15 PM PTFUADULT4, Provider: Giselle Guzman, Status: Pen, Time: 1:15 PM [facility] Work Phone: Start: 12-23-2022 PTFUADULT4, Provider: Giselle Guzman, Status: Pen, Time: 1:15 PM PTFUADULT4, Provider: Giselle Guzman, Status: Pen, Time: 1:15 PM [facility] Work Phone: Start: 12-18-2022 PTFUADULT4, Provider: Giselle Guzman, Status: Pen, Time: 1:15 PM PTFUADULT4, Provider: Giselle Guzman, Status: Pen, Time: 1:15 PM [facility] Work Phone: Start: 12-14-2022 YEE, Provider: Alejandra Cutler, Status: Pen, Time: 1:45 PM PTRECHECKA, Provider: Alejandra Cutler, Status: Pen, Time: 1:45 PM [facility] Work Phone: Start: 12-11-2022 PTFUADULT4, Provider: Giselle Guzman, Status: Pen, Time: 1:15 PM PTFUADULT4, Provider: Giselle Guzman, Status: Pen, Time: 1:15 PM [facility] Work Phone: Start: 12-11-2022 Covid-19 Vaccine (5 - Moderna series) Covid-19 Vaccine (5 - Moderna series) [facility] Start: 12-07-2022 PTFUADULT4, Provider: Giselle Guzman, Status: Pen, Time: 1:15 PM PTFUADULT4, Provider: Giselle Guzman, Status: Pen, Time: 1:15 PM [facility] Start: 12-04-2022 PTFUADULT4, Provider: Giselle Guzman, Status: Pen, Time: 4:15 PM PTFUADULT4, Provider: Giselle Guzman, Status: Pen, Time: 4:15 PM [facility] Start: 11-30-2022 PTFUADULT4, Provider: Giselle Guzman, Status: Pen, Time: 1:15 PM PTFUADULT4, Provider: Giselle Guzman, Status: Pen, Time: 1:15 PM [facility] Work Phone: Start: 11-20-2022 Patient discharge [facility] Work Phone: Start: 11-19-2022 Following clinical pathway protocol [facility] Work Phone: Start: 11-19-2022 Oxygen therapy [facility] Work Phone: Start: 11-19-2022 Provision of overbed trapeze [facility] Work Phone: Start: 11-19-2022 Admission procedure [facility] Work Phone: Start: 11-19-2022 End: 11-19-2022 [facility] Work Phone: Start: 11-19-2022 Ambulation therapy management [facility] Work Phone: Start: 11-19-2022 Application of device [facility] Work Phone: Start: 11-19-2022 Assessment of risk of venous thromboembolism [facility] Work Phone: Start: 11-19-2022 Catheterization of vein [facility] Work Phone: Start: 11-19-2022 Consultation [facility] Work Phone: Start: 11-19-2022 Exercises [facility] Work Phone: Start: 11-19-2022 Following clinical pathway protocol [facility] Work Phone: Start: 11-19-2022 Incentive spirometry [facility] Work Phone: Start: 11-19-2022 Introduction of urinary catheter [facility] Work Phone: Start: 11-19-2022 Measuring intake and output [facility] Work Phone: Start: 11-19-2022 Neurovascular assessment [facility] Work Phone: Start: 11-19-2022 Patient education [facility] Work Phone: Start: 11-19-2022 Procedure discontinued [facility] Work Phone: Start: 11-19-2022 Provision of activity privileges [facility] Work Phone: Start: 11-19-2022 Referral to occupational therapist [facility] Work Phone: Start: 11-19-2022 Referral to service [facility] Work Phone: Start: 11-19-2022 Vital signs measurements [facility] Work Phone: Start: 11-19-2022 Wound care [facility] Work Phone: Start: 11-15-2022 ADVANCE DIRECTIVE DISCUSSION ADVANCE DIRECTIVE DISCUSSION [facility] Start: 11-15-2022 DEPRESSION ASSESSMENT DEPRESSION ASSESSMENT [facility] Start: 08-24-2022 PTRARLETTE, Provider: Alejandra Cutler, Status: Pen, Time: 4:00 PM YEE, Provider: Alejandra Cutler, Status: Pen, Time: 4:00 PM [facility] Work Phone: Start: 08-21-2022 PTFUADULT4, Provider: Giselle Guzman, Status: Pen, Time: 1:15 PM PTFUADULT4, Provider: Giselle Guzman, Status: Pen, Time: 1:15 PM [facility] Work Phone: Start: 08-17-2022 PTFUADULT4, Provider: Giselle Guzman, Status: Pen, Time: 3:30 PM PTFUADULT4, Provider: Giselle Guzman, Status: Pen, Time: 3:30 PM [facility] Work Phone: Start: 08-14-2022 PTFUADULT4, Provider: Giselle Guzman, Status: Pen, Time: 2:45 PM PTFUADULT4, Provider: Giselle Guzman, Status: Pen, Time: 2:45 PM [facility] Work Phone: Start: 08-10-2022 PTFUADULT4, Provider: Giselle Guzman, Status: Pen, Time: 3:30 PM PTFUADULT4, Provider: Giselle Guzman, Status: Pen, Time: 3:30 PM [facility] Work Phone: Start: 08-07-2022 PTFUADULT4, Provider: Yahaira West, Status: Pen, Time: 10:45 AM PTFUADULT4, Provider: Yahaira West, Status: Pen, Time: 10:45 AM [facility] Work [facility]: Start: 08-03-2022 PTFUADULT4, Provider: Giselle Guzman, Status: Pen, Time: 3:30 PM PTFUADULT4, Provider: Giselle Guzman, Status: Pen, Time: 3:30 PM [facility] Work Phone: Start: 07-16-2022 Influenza vaccination INFLUENZA (#1) [facility] Start: 04-15-2022 DTaP/Tdap/Td Vaccines (2 - Td or Tdap) DTaP/Tdap/Td Vaccines (2 - Td or Tdap) [facility] Start: 04-15-2022 Tetanus vaccination Tetanus: Every 10yrs [facility] Start: 04-15-2022 Urine microalbumin profile DTaP,Tdap,Td Vaccine (2 - Td or Tdap) [facility] Start: 02-10-2022 COVID-19 VACCINE (4 - Booster for Moderna series) COVID-19 VACCINE (4 - Booster for Moderna series) [facility] Start: 12-08-2021 COVID-19 Vaccine (2 - Moderna series) COVID-19 Vaccine (2 - Moderna series) [facility] Start: 11-15-2021 ADVANCE DIRECTIVE DISCUSSION ADVANCE DIRECTIVE DISCUSSION [facility] Start: 11-15-2021 DEPRESSION ASSESSMENT DEPRESSION ASSESSMENT [facility] Start: 09-30-2018 Pneumococcal Vaccine: 65+ (2 - PCV) Pneumococcal Vaccine: 65+ (2 - PCV) [facility] Start: 09-30-2018 Pneumococcal Vaccine: 65+ (2 of 2 - PCV) Pneumococcal Vaccine: 65+ (2 of 2 - PCV) [facility] Start: 2015 BONE DENSITY BONE DENSITY [facility] Start: 2015 Bone Density Screening Bone Density Screening [facility] Start: 2015 Fall risk assessment Falls Risk Assessment [facility] Start: 2015 Pneumococcal Vaccine: 65+ (1 - PCV) Pneumococcal Vaccine: 65+ (1 - PCV) [facility] Start: 2015 Pneumococcal Vaccine: 65+ Years (1 - PCV) Pneumococcal Vaccine: 65+ Years (1 - PCV) [facility] Start: 2015 Screening for osteoporosis Bone Density Screening [facility] Start: 2010 Hepatitis B Vaccine (1 of 3 - Risk 3-dose series) Hepatitis B Vaccine (1 of 3 - Risk 3-dose series) [facility] Start: 2010 RSV Vaccine (1 - 1-dose 60+ series) RSV Vaccine (1 - 1-dose 60+ series) [facility] Start: 2010 RSV Vaccine (1 - Risk 60-74 years 1-dose series) RSV Vaccine (1 - Risk 60-74 years 1-dose series) [facility] Start: 2000 Screening for malignant neoplasm of colon Flexible sigmoidoscopy [facility] Start: 2000 SHINGRIX VACCINE (1 of 2) SHINGRIX VACCINE (1 of 2) [facility] Start: 2000 Zoster Vaccines (1 of 2) Zoster Vaccines (1 of 2) [facility] Start: 1995 COLOGUARD (FIT-DNA) COLOGUARD (FIT-DNA) [facility] Start: 1995 Colonoscopy COLONOSCOPY [facility] Start: 1995 COLORECTAL CANCER SCREENING COLORECTAL CANCER SCREENING [facility] Start: [address] COLONOGRAPHY [facility] Start: 1995 FECAL OCCULT BLOOD FECAL OCCULT BLOOD [facility] Start: 1995 Screening for malignant neoplasm of colon [facility] Start: 1995 SIGMOIDOSCOPY SIGMOIDOSCOPY [facility] Start: 1990 Mammography MAMMOGRAM [facility] Start: 1990 Screening for malignant neoplasm of breast Mammogram [facility] Start: 1972 DTaP/Tdap/Td Vaccines (1 - Tdap) DTaP/Tdap/Td Vaccines (1 - Tdap) [facility] Start: 1969 Urine microalbumin profile [facility] Start: 1969 Urine screening for protein Diabetes: Urine Protein Screening [facility] Start: 1968 ANNUAL PCP TEAM CHRONIC DISEASE VISIT ANNUAL PCP TEAM CHRONIC DISEASE VISIT [facility] Start: 1968 Anxiety Screening Anxiety Screening [facility] Start: 1968 BP CONTROLLED (<130/80) BP CONTROLLED (<130/80) [facility] Start: 1968 Depression Screening Depression Screening [facility] Start: 1968 Hepatitis B surface antibody level LDL CHOLESTEROL [facility] Start: 1968 HEPATITIS C SCREENING HEPATITIS C SCREENING [facility] Start: 1968 Hepatitis C screening Hepatitis C Screening [facility] Start: 1962 Adult depression screening assessment [facility] Start: 1960 3 comp foot exam completed DIABETIC FOOT EXAM [facility] Start: 1960 Diabetic foot examination [facility] Start: 1960 Glaucoma screening Diabetes: Retinopathy Screening [facility] Start: 1960 Hepatitis B screening URINE ALBUMIN:CREATININE RATIO [facility] Start: 1960 Urine screening for protein Urine (micro)albumin/creatinine ratio - Diabetes [facility] Start: 1956 Pneumococcal Vaccine: 65+ (1 - PCV) Pneumococcal Vaccine: 65+ (1 - PCV) [facility] Start: 1956 Pneumococcal Vaccine: 65+ Years (1 - PCV) Pneumococcal Vaccine: 65+ Years (1 - PCV) [facility] Start: 1956 PNEUMOCOCCAL: 65+ (1 - PCV) PNEUMOCOCCAL: 65+ (1 - PCV) [facility] Start: 1955 Hemoglobin A1c measurement HbA1C [facility] Start: 1955 Hemoglobin A1c/Hemoglobin.total in Blood HBA1C [facility] Start: 1953 Medicare Wellness Visit Medicare Wellness Visit [facility] Start: 1951 MMR Vaccines (1 of 1 - Standard series) MMR Vaccines (1 of 1 - Standard series) [facility] Start: 1950 Echocardiography Echocardiogram [facility] Start: 1950 Hemoglobin A1c measurement Diabetes: [facility] Start: 1950 Lipid panel Lipid Panel [facility] Start: 1950 Medicare Annual Wellness Visit Medicare Annual Wellness Visit (AWV) [facility] Start: 1950 Screening for malignant neoplasm of colon [facility] Start: 1950 Screening for osteoporosis Dexa Scan [facility] Start: 1950 Thyroid stimulating hormone measurement TSH Level [facility] Start: 1950 Urine screening for protein Diabetes: Urine Protein Screening [facility] Bilirubin measuremen t, urine [facility] Bilirubin measuremen t, urine [facility] Chloride measurement , urine [facility] Clostridioides diffi cile DNA [Presence] in Unspecified specimen by KATYA with probe detection [facility] End: 07-28-2025 ECG 12 Lead ECG 12 Lead ECG STAT Once for 1 Occurrences starting 07/28/2025 until 07/28/2025 [facility] Work Phone: Comment on above: Once for 1 Occurrences starting 07/28/20 until 07/28/2025 ECG 12 Lead ECG 12 Lead ECG STAT 07/28/2025 2:35 AM EDT [facility] Work Phone: End: 09-22-2026 Echocardiography Echocardiogram complete Echocardiography Routine Abnormal finding on echocardiogram Abnormal electrocardiogram 1 Occurrences starting 07/23/2025 until 09/22/2026 [facility] Comment on above: 1 Occurrences starting 07/23/2025 until 09/22/2026 End: 07-27-2025 Extra Urine Sanz Tube Extra Urine Sanz Tube Lab Timed Once for 1 Occurrences starting 07/27/2025 until 07/27/2025 [facility] Work Phone: Comment on above: Once for 1 Occurrences starting 07/27/20 until 07/27/2025 Fungus identified in Unspecified specimen by Culture [facility] Fungus identified in Unspecified specimen by Fungus stain [facility] Glucose [Mass/volume ] in Serum or Plasma POCT Glucose Point of Care Testing - Docked Device Routine As needed (Lab) until discontinued starting 08/26/2023 [facility] Service Area Work Phone: Comment on above: As needed (Lab) until discontinued start ing 08/26/2023 Glucose [Mass/volume ] in Serum or Plasma POCT Glucose Point of Care Testing - Docked Device Routine As needed (Lab) until discontinued starting 09/30/2023 [facility] Service Area Work Phone: Comment on above: As needed (Lab) until discontinued start ing 09/30/2023 Hemoglobin [Presence ] in Urine [facility] Hemoglobin [Presence ] in Urine [facility] Lipid 1996 panel - S anmol or Plasma [facility] Magnesium measurement [facility] Measurement of keton es in urine using dipstick [facility] Measurement of keton es in urine using dipstick [facility] Microscopic urinalysis [facility] Microscopic urinalysis [facility] End: 07-23-2026 MR Lumbar spine WO contrast MR Lumbar Spine Without Contrast Imaging Routine Osteomyelitis of lumbar spine (HCC) 1 Occurrences starting 07/23/2025 until 07/23/2026 [facility] Work Phone: Comment on above: 1 Occurrences starting 07/23/2025 until 07/23/[address] [facility] Osmolality of Urine [facility] Patient Education RAD RN Dischar everett Instructions for Kidney Biopsy [facility] Work Phone: Patient referral [facility] Work Phone: pH of Urine [facility] pH of Urine [facility] Potassium [Moles/vol ume] in Urine [facility] Sodium [Moles/volume ] in Urine [facility] Specific gravity of Urine [facility] Specific gravity of Urine [facility] Troponin T.cardiac [Mass/volume] in Serum or Plasma by High sensitivity method [facility] Troponin T.cardiac [Mass/volume] in Serum or Plasma by High sensitivity method [facility] End: 07-27-2025 Urinalysis complete W Reflex Culture panel - Urine [facility] Service Area Work Phone: Comment on above: STAT (Lab) for 1 Occurrences starting until 07/27/2025 Once for 1 Occurrenc es starting 07/27/2025 until 07/27/2025 Urine blood test [facility] Urine blood test [facility] Urine culture [facility] Urine culture [facility] Urine dipstick for glucose [facility] Urine dipstick for glucose [facility] Urine dipstick for leukocyte esterase [facility] Urine dipstick for leukocyte esterase [facility] Urine dipstick for nitrite [facility] Urine dipstick for nitrite [facility] Urine dipstick for protein [facility] Urine dipstick for protein [facility] Urine examination [facility] Urine examination [facility] Urine microscopy: epithelial cells [facility] Urine microscopy: epithelial cells [facility] Urine Microscopy: wh ite cells [facility] Urine Microsc[facility]: [facility] Urobilinogen [Presen ce] in Urine [facility] Urobilinogen [Presen ce] in Urine [facility] Immunizations Immunization Date Immunization Notes Care Provider [facility] 09-27-2024 Covid (Spikevax) Donal Will MD Work Phone: [facility] 09-27-2024 influenza, high dose seasonal, preservative-free Donal Will MD Work Phone: [facility] 09-27-2024 influenza virus vaccine, unspecified formulation Sergo Chirinos MD, PhD Work Phone: [facility] 09-01-2023 influenza virus vaccine, unspecified formulation Sarah Reilly II, OD Work Phone: [facility] 09-21-2022 Influenza, injectabl e, Madin [facility]wick Canine Kidney, preservative free, quadrivalent Dr. Girish Simon Work Phone: [facility] 09-21-2022 influenza virus vaccine, unspecified formulation Dilan Liz MD Work Phone: [facility] 10-13-2021 Covid (Moderna) Dr. Street To tata Work Phone: [facility] 02-20-2021 Elizabethid (Moderna) Dr. Street To tata Work Phone: [facility] 01-22-2021 Elizabethid (Moderna) Dr. [facility] To tata Work Phone: [facility] Payers Date Payer Category Payer Self-pay 2021 Medicare AETNA MEDICARE A ETNA MEDICARE PPO [id number] 2021-Present [phone] [address] [place] [address] PPO [id number] 2021 Medicare [id number] 2021 Medicare (Managed Care) 1.2. [id number] 2021 Unknown 2016 Medicare PPO [id number] 2015 Private Health Insurance [id number] 2013 Unknown [facility] [id number] 1950 Unknown [id number] 2.0.1.483782.3.579.2.1 1950 Unknown [id number] .0.1.187366.3.579.2.1 1950 Unknown [id number] .0.1.140161.3.579.2.1 1950 Unknown [id number] 2.16.840.1.166148.3.579.2.1 1950 Unknown [id number] 2.16.840.1.596662.3.579.2.1 1950 Unknown [id number] 2.16.840.1.743995.3.579.2.1 1950 Unknown [id number] 2.16.840.1.827502.3.579.2.1 1950 Unknown [id number] 2.16.840.1.945635.3.579.2.1 1950 Unknown [id number] 2.16.840.1.925608.3.579.2.1 1950 Unknown [id number] 2.16.840.1.015670.3.579.2.1 1950 Unknown [id number] 2.16.840.1.045896.3.579.2.1 1950 Unknown [id number] 2.16840.1.866737.3.579.2.1 1950 Unknown [id number] 2.840.1.427127.3.579.2.1 1950 Unknown [id number] 2.840.1.399117.3.579.2.1 1950 Unknown [id number] 2.840.1.049815.3.579.2.1 1950 Unknown [id number] 2.16840.1.753173.3.579.2.1 1950 Unknown [id number] 2.16840.1.270120.3.579.2.1 1950 Unknown [id number] 2.16840.1.567105.3.579.2.1 1950 Unknown [id number] 2.16840.1.202427.3.579.2.1 1950 Unknown [id number] 2.16840.1.170649.3.579.2.1 1950 Unknown [id number] 2.16840.1.971082.3.579.2.1 1950 Unknown [id number] 2.16.840.1.255617.3.579.2.1 069 1950 Unknown [id number] 2.16.840.1.375595.3.579.2.1 069 1950 Unknown [id number] 2.16.840.1.625430.3.579.2.1 9 1950 Unknown [id number] 2.16.840.1.319098.3.579.2.1 9 1950 Unknown [id number] 2.16.840.1.388156.3.579.2.1 9 1950 Unknown [id number] 2.16.840.1.469025.3.579.2.1 9 1950 Unknown [id number] 2.16.840.1.235612.3.579.2.9 03 1950 Unknown [id number] 2.16.840.1.199683.3.579.2.9 00 1950 Unknown [id number] 2.16.840.1.364152.3.579.2.9 00 1950 Unknown [id number] 2.16.840.1.453430.3.579.2.9 00 1950 Unknown [id number] 2.16.840.1.106208.3.579.2.1 243 1950 Unknown [id number] 2.16.840.1.569096.3.579.2.7 32 Medicare MEDICARE PART A B [id number] Private Health Insurance FLB [id number] Unknown [id number] 2.16.840.1.306965.3.579.2.4 62 Unknown [id number] 2.16.840.1.959284.3.579.2.4 62 Unknown [id number] 2.16.840.1.475663.3.579.2.4 62 Unknown [id number] 2.16.840.1.417562.3.579.2.4 62 Unknown [id number] 2.16.840.1.190009.3.579.2.4 62 Unknown [id number] 2.16.840.1.595225.3.579.2.4 62 Unknown [id number] 2.16.840.1.070289.3.579.2.4 62 Unknown [id number] 2.16.840.1.890418.3.579.2.4 62 Unknown [id number] 2.16.840.1.062279.3.579.2.4 62 Unknown [id number] 2.16.840.1.508158.3.579.2.4 62 Unknown [id number] 2.16.840.1.401590.3.579.2.4 62 Unknown [id number] 2.16.840.1.545650.3.579.2.4 62 Unknown [id number] 2.16.840.1.908736.3.579.2.4 62 Unknown [id number] 2.16.840.1.584581.3.579.2.4 62 Unknown [id number] 2.16.840.1.794253.3.579.2.4 62 Unknown [id number] 2.16.840.1.366047.3.579.2.4 62 Unknown [id number] 2.16.840.1.536289.3.579.2.4 62 Unknown [id number] 2.16.840.1.411968.3.579.2.4 62 Unknown [id number] 2.16.840.1.668904.3.579.2.4 62 Unknown [id number] 2.16.840.1.681482.3.579.2.4 62 Unknown [id number] 2.16.840.1.174173.3.579.2.4 62 Unknown [id number] 2.16.840.1.018218.3.579.2.4 62 Unknown [id number] 2.16.840.1.697717.3.579.2.4 62 Unknown [id number] 2.16.840.1.198027.3.579.2.4 62 Unknown [id number] 2.16.840.1.268546.3.579.2.4 62 Unknown [id number] 2.16.840.1.898831.3.579.2.4 62 Unknown [id number] 2.16.840.1.982325.3.579.2.4 62 Unknown [id number] 2.16.840.1.674846.3.579.2.4 62 Unknown [id number] 2.16.840.1.916205.3.579.2.4 62 Unknown [id number] 2.16.840.1.481830.3.579.2.4 62 Unknown [id number] 2.16.840.1.056221.3.579.2.4 62 Unknown [id number] 2.16.840.1.525983.3.579.2.4 62 Unknown [id number] 2.16.840.1.787779.3.579.2.4 62 Unknown [id number] 2.16.840.1.309082.3.579.2.4 62 Unknown [id number] 2.16.840.1.858845.3.579.2.4 62 Unknown [id number] 2.16.840.1.193019.3.579.2.4 62 Unknown [id number] 2.16.840.1.740813.3.579.2.4 62 Unknown [id number] 2.16.840.1.703897.3.579.2.4 62 Unknown [id number] 2.16.840.1.976085.3.579.2.4 62 Unknown [id number] 2.16.840.1.911903.3.579.2.4 62 Unknown [id number] 2.16.840.1.554174.3.579.2.4 62 Unknown [id number] 2.16.840.1.895321.3.579.2.4 62 Unknown [id number] 2.16.840.1.837241.3.579.2.4 62 Unknown [id number] 2.16.840.1.675402.3.579.2.4 62 Unknown [id number] 2.16.840.1.129690.3.579.2.4 62 Unknown [id number] 2.16.840.1.159318.3.579.2.4 62 Unknown [id number] 2.16.840.1.672707.3.579.2.4 62 Unknown [id number] 2.16.840.1.519359.3.579.2.4 62 Unknown [id number] 2.16.840.1.600383.3.579.2.4 62 Unknown [id number] 2.16.840.1.977848.3.579.2.4 62 Unknown [id number] 2.16.840.1.206674.3.579.2.4 62 Unknown [id number] 2.16.840.1.239606.3.579.2.4 62 Unknown [id number] 2.16.840.1.891499.3.579.2.4 62 Unknown [id number] 2.16.840.1.627314.3.579.2.4 62 Unknown [id number] 2.16.840.1.791115.3.579.2.4 62 Unknown [id number] 2.16.840.1.596182.3.579.2.4 62 Unknown [id number] 2.16.840.1.567865.3.579.2.4 62 Unknown [id number] 2.16.840.1.634621.3.579.2.4 62 Unknown [id number] 2.16.840.1.634706.3.579.2.4 62 Unknown [id number] 2.16.840.1.851320.3.579.2.4 62 Unknown [id number] 2.16.840.1.394036.3.579.2.4 62 Unknown [id number] 2.16.840.1.612927.3.579.2.4 62 Unknown [id number] 2.16.840.1.882872.3.579.2.4 62 Unknown [id number] 2.16.840.1.109663.3.579.2.4 62 Unknown [id number] 2.16.840.1.513022.3.579.2.4 62 Unknown [id number] 2.16.840.1.265548.3.579.2.4 62 Social History Date Type Detail Facility Start: 01-02-2015 End: 05-31-2017 Tobacco smoking status NHIS Never smoked tobacco [facility] Start: 01-02-2015 End: 08-25-2023 Tobacco use and exposure Smokeless tobacco non-user [facility] Start: 05-05-2022 End: 08-21-2025 Alcohol intake Current non-drinker of alcohol (finding) [facility] Start: 1950 Sex Assigned At Not on file [facility] Start: 04-25-2022 End: 09-30-2023 Exposure to SARS-CoV-2 (event) Not sure [facility] Start: 08-04-2023 End: 07-28-2025 No illicit drug use No illicit drug use [facility] Start: 11-05-2022 Tobacco smoking status ARIS Unknown if ever smoked [facility] Start: 1950 Sex Assigned At Female [facility] Start: 08-04-2023 End: 07-28-2025 Tobacco use panel [facility] Start: 10-09-2022 National Score (1-100), lower number is lower risk 79 [facility] Start: 08-26-2023 End: 09-27-2023 Alcohol intake Lifetime non-drinker (finding) [facility] Work Phone: Start: 01-25-2025 End: 03-13-2025 Sex Female (finding) [facility] Has the electric, gas, oil, or water company threatened to shut off services in your home in past 12Mo No [facility] (I/We) worried whether (my/our) food would run out before (I/we) got money to buy more. Never true [facility] Start: 07-27-2025 Gender identity Identifies as female gender (finding) [facility] Work Phone: NEGATED: Highlighted row Not [facility] Medical Equipment Procedure Code Equipment Code Equipment Origin al Text Equipment Identifier Dates Insertion, catheter, hemodialysis Double-lumen haemodialysis catheter, implantable [id number] FDA Start: 03-16-2025 [id number] Start: 08-26-2023 Lens, Intraocula r, Sn60wf 20.5 Kandace - [id number] - [id number] Start: 09-30-2023 CLUSTERHOLE ACETABULAR SHELL FDA [...] : 11-19-2022 POLY INSERT FDA Start: 11-19-2022 [id number] Start: 07-11-2025 Goals Date Patient Goal Desired Activity /State Functional Status Date Assessment Result Facility 07-27-2025 [facility] suicide severity rating scale screener - recent [C-SSRS] [facility] Work Phone: 03-23-2025 Functional status Bedpan [facility] Work Phone: 11-02-2024 Functional status Ambulates;Chair [facility] Work Phone: 11-01-2024 Functional status Tolerates Activity Well [facility] Work Phone: 10-21-2024 Functional status Chair [facility] Work Phone: 11-20-2022 Functional status Ambulates;Beds veronica Commode [facility] Work Phone: Mental Status Date Assessment Result Facility 06-24-2025 Cognitive function Level Of Cons ciousness Awake;Alert;Appropriate;Follow s Commands;Drowsy [facility] Work Phone: 03-23-2025 Cognitive function Voice/Name [facility] Work Phone: 03-13-2025 Cognitive function Level Of Cons ciousness Awake;Alert;Appropriate;Follow s Commands [facility] Work Phone: 11-02-2024 Cognitive function Voice/Name [facility] Work Phone: 10-21-2024 Cognitive function Voice/Name [facility] Work Phone: 11-20-2022 Cognitive function Voice/Name [facility] Work Phone: Clinical Notes 01-02-2015 to 08-21-2025 Patient InstructionsAssessment & Plan Note - Toño Stewart MD - 08/21/2025 1:27 PM EDTAssessment & Plan Note - Toño Stewart MD - 08/21/2025 1:27 PM EDTDischarge Instructions Note Date & Type Note Facility 08-21-2025 Instructions Toño Stewart MD - 08/21/2025 1:29 PM EDT ID appointment update: - Continue IV vancomycin per pharmacy/nephrology after HD, stop date to be extended from 08/29/25 to 09/12/25, as MRI and TTE postponed until 09/05/25. - please fax imaging results (MRI lumbar spine without contrast and TTE) to [phone] when available - continue IV vancomycin until advised by ID office to stop, but anticipate change to PO doxycycline 100mg BID after imaging complete. documented in this encounter [facility] 08-21-2025 Evaluation + Plan note Associated Problem(s): Osteomyelitis of lumbar spine (HCC) Patient with MRSA bacteremia, SVC and RIJ thrombus related to dialysis line, lumbar discitis, with plans for 8 weeks IV vancomycin through 08/29/25. - Hoping for repeat MRI lumbar spine without contrast and TTE prior to abx completion, patient requested to reschedule; now planned 09/05/25. While it is reassuring that she is described as clinically improving, I would like to see those imaging studies before confirming stop date. I discussed with RN, no plans for patient discharge prior to 09/05. I will give new tentative stop date of 09/12 to allow time for studies to be read and sent to ID for review. Continue IV vancomycin dosed per pharmacy with HD until advised to stop. - continue to monitor for signs/symptoms of infection - after IV antibiotics complete, anticipate transitioning to PO doxycycline 100mg BID [facility] 08-21-2025 Miscellaneous Notes Associated Problem(s): Osteomyelitis of lumbar spine (HCC) Patient with MRSA bacteremia, SVC and RIJ thrombus related to dialysis line, lumbar discitis, with plans for 8 weeks IV vancomycin through 08/29/25. - Hoping for repeat MRI lumbar spine without contrast and TTE prior to abx completion, patient requested to reschedule; now planned 09/05/25. While it is reassuring that she is described as clinically improving, I would like to see those imaging studies before confirming stop date. I discussed with RN, no plans for patient discharge prior to 09/05. I will give new tentative stop date of 09/12 to allow time for studies to be read and sent to ID for review. Continue IV vancomycin dosed per pharmacy with HD until advised to stop. - continue to monitor for signs/symptoms of infection - after IV antibiotics complete, anticipate transitioning to PO doxycycline 100mg BID documented in this encounter [facility] 08-21-2025 Note Telephone Visit Via Phone Call [facility] [address] [place] [phone] Telephone Visit [facility] 08/21/2025 Toño Stewart MD Provider Location: provider office Patient Location [facility] Slasher: None Patient Location: Patient's SNF Patient: Misael Medina Date of : 1950 (75 y.o. female) PCP: Donal Will MD I discussed risks, benefits and alternatives of a telephone visit telemedicine consultation with the patient (and any accompanying persons) including the risks that the patient's personal health details and medical records will be discussed over real-time, synchronous, interactive audio technology, the visit will not be recorded without the express consent of both the provider and the patient, and that there are inherent diagnostic limitations compared to [id number] evaluations. We elected to proceed with the telephone visit telemedicine consultation. Subjective: patient currently at [facility] after prolonged [facility] admission, on IV vancomycin for ~8 weeks through 08/29/25 for MRSA bacteremia, SVC and right internal jugular thrombus, and lumbar vertebral osteomyelitis. She was readmitted in 07/2025 with bowel obstruction with ischemia, and underwent exlap, reduction internal hernia, small bowel resection. Discharged back to [facility]. I spoke with RN Latoya, who states patient's back pain had improved, working with therapy, and no new infection concerns. She has been getting her vancomycin with dialysis. There is no imminent plan to discharge patient. Pt requested MRI and TTE be rescheduled, now scheduled for 09/05. I called and spoke with patient on her mobile phone, she states she is doing much better. Pain in low back and right hip improved. She denies any new symptoms. States doing well after abdominal surgery. Past Medical History: Diagnosis Date Arthritis Cataracts, bilateral Chronic kidney disease (CKD) Colon polyp 2011 Tubular adenoma Diabetes (HCC) Diabetes mellitus, type 2 (HCC) Dialysis patient (HCC) Endometrial cancer (HCC) 08/2014 s/p Hysterectomy and External beam radiation as well as internal radiation, no chemo...[facility]COLOGIST: [facility] [place] (Dr. Ryan) Hyperlipidemia Hypertension Morbid obesity (HCC) MRSA (methicillin resistant Staphylococcus aureus) Thyroid disease Past Surgical History: Procedure Laterality Date CHOLECYSTECTOMY 1997 COLONOSCOPY 06/02/2012 tubular adenoma removal...Dr. Funez COLONOSCOPY 06/16/2017 Normal....Dr. Funez CV IR INTERVENTIONAL RADIOLOGY N/A 07/11/2025 Procedure: VR Dialysis Cath Insert Tunnel; Surgeon: Amber Fisher PA-C; Location: [facility] IR LAB; Service: Interventional Radiology; Laterality: N/A; EAR PIERCINGS EXPLORATORY LAPAROTOMY N/A 07/28/2025 Procedure: EXPLORATORY LAPAROTOMY, REDUCTION OF INTERNAL HERNIA, SMALL BOWEL RESECTION; Surgeon: Asia Conway DO; Location: [facility] Main OR; Service: [employer]; Laterality: N/A; HYSTERECTOMY 08/2014 for Endometrial CA TEETH EXTRACTION TOTAL HIP ARTHROPLASTY Right Family History Problem Relation Age of Onset Diabetes Mother Heart disease Mother Diabetes Father Heart attack Father Hypertension Father Heart disease Father Hyperlipidemia Father Diabetes Sister Social History Substance and Sexual Activity Drug Use No Tobacco Use History[1] Social History Substance and Sexual Activity Sexual Activity Not on file Review of Systems: The following system(s) were reviewed. Review of systems otherwise negative other than mentioned in HPI. [x] Const [] Eyes [] ENT [] Resp [] CV [] GI [] [] Neuro [x] Musc [x] Skin [] Psych [] Endo [] Allergy [] Heme/Lymph Physical Examination: There were no vitals taken for this visit. No physical exam due to virtual nature of visit. Home Medications: Outpatient Medications as of 08/21/2025 Medication Sig acetaminophen (TYLENOL) 325 MG tablet Take 2 (two) tablets (650 mg total) by mouth every 4 (four) hours as needed for pain . apixaban (ELIQUIS) 2.5 mg Tab Take 1 (one) tablet (2.5 mg total) by mouth 2 (two) times a day . atorvastatin (LIPITOR) 10 MG tablet Take 1 (one) tablet (10 mg total) by mouth daily . ergocalciferol (ERGOCALCIFEROL) 1,250 mcg (50,000 unit) capsule Take 1 (one) capsule (50,000 Units total) by mouth once a week On Wednesday . hydrALAZINE (APRESOLINE) 10 MG tablet Take 1 (one) tablet (10 mg total) by mouth 3 (three) times a day Hold for SBP less than 110 . ipratropium (ATROVENT) 42 mcg (0.06 %) nasal spray Instill 2 (two) sprays into each nostril 3 (three) times a day as needed for rhinitis . Lactobacillus rhamnosus GG (CULTURELLE) 10 billion cell capsule Take 1 (one) capsule by mouth daily . levothyroxine (Synthroid) 112 MCG tablet Take 1 (o (more content not included)... [facility] 08-21-2025 History of Present illness Narrative Telephone Visit Via Phone Call [facility] [address] [place] [phone] Telephone Visit [facility] 08/21/2025 Toño Stewart MD Provider Location: provider office Patient Location [facility] Slasher: None Patient Location: Patient's SNF Patient: Misael Medina Date of : 1950 (75 y.o. female) PCP: Donal Will MD I discussed risks, benefits and alternatives of a telephone visit telemedicine consultation with the patient (and any accompanying persons) including the risks that the patient's personal health details and medical records will be discussed over real-time, synchronous, interactive audio technology, the visit will not be recorded without the express consent of both the provider and the patient, and that there are inherent diagnostic limitations compared to [id number] evaluations. We elected to proceed with the telephone visit telemedicine consultation. Subjective: patient currently at [facility] after prolonged [facility] admission, on IV vancomycin for ~8 weeks through 08/29/25 for MRSA bacteremia, SVC and right internal jugular thrombus, and lumbar vertebral osteomyelitis. She was readmitted in 07/2025 with bowel obstruction with ischemia, and underwent exlap, reduction internal hernia, small bowel resection. Discharged back to [facility]. I spoke with SHON Klein, who states patient's back pain had improved, working with therapy, and no new infection concerns. She has been getting her vancomycin with dialysis. There is no imminent plan to discharge patient. Pt requested MRI and TTE be rescheduled, now scheduled for 09/05. I called and spoke with patient on her mobile phone, she states she is doing much better. Pain in low back and right hip improved. She denies any new symptoms. States doing well after abdominal surgery. Past Medical History: Diagnosis Date Arthritis Cataracts, bilateral Chronic kidney disease (CKD) Colon polyp 2011 Tubular adenoma Diabetes (HCC) Diabetes mellitus, type 2 (HCC) Dialysis patient (HCC) Endometrial cancer (HCC) 08/2014 s/p Hysterectomy and External beam radiation as well as internal radiation, no chemo...ONCOLOGIST: [facility] [place] (Dr. Seider) Hyperlipidemia Hypertension Morbid obesity (HCC) MRSA (methicillin resistant Staphylococcus aureus) Thyroid disease Past Surgical History: Procedure Laterality Date CHOLECYSTECTOMY 1997 COLONOSCOPY 06/02/2012 tubular adenoma removal...Dr. Funez COLONOSCOPY 06/16/2017 Normal....Dr. Funez CV IR INTERVENTIONAL RADIOLOGY N/A 07/11/2025 Procedure: VR Dialysis Cath Insert Tunnel; Surgeon: Amber Fisher PA-C; Location: [facility] IR LAB; Service: Interventional Radiology; Laterality: N/A; EAR PIERCINGS EXPLORATORY LAPAROTOMY N/A 07/28/2025 Procedure: EXPLORATORY LAPAROTOMY, REDUCTION OF INTERNAL HERNIA, SMALL BOWEL RESECTION; Surgeon: Asia Conway DO; Location: [facility] Main OR; Service: [employer]; Laterality: N/A; HYSTERECTOMY 08/2014 for Endometrial CA TEETH EXTRACTION TOTAL HIP ARTHROPLASTY Right Family History Problem Relation Age of Onset Diabetes Mother Heart disease Mother Diabetes Father Heart attack Father Hypertension Father Heart disease Father Hyperlipidemia Father Diabetes Sister Social History Substance and Sexual Activity Drug Use No Tobacco Use History[1] Social History Substance and Sexual Activity Sexual Activity Not on file Review of Systems: The following system(s) were reviewed. Review of systems otherwise negative other than mentioned in HPI. [x] Const [] Eyes [] ENT [] Resp [] CV [] GI [] [] Neuro [x] Musc [x] Skin [] Psych [] Endo [] Allergy [] Heme/Lymph Physical Examination: There were no vitals taken for this visit. No physical exam due to virtual nature of visit. Home Medications: Outpatient Medications as of 08/21/2025 Medication Sig acetaminophen (TYLENOL) 325 MG tablet Take 2 (two) tablets (650 mg total) by mouth every 4 (four) hours as needed for pain . apixaban (ELIQUIS) 2.5 mg Tab Take 1 (one) tablet (2.5 mg total) by mouth 2 (two) times a day . atorvastatin (LIPITOR) 10 MG tablet Take 1 (one) tablet (10 mg total) by mouth daily . ergocalciferol (ERGOCALCIFEROL) 1,250 mcg (50,000 unit) capsule Take 1 (one) capsule (50,000 Units total) by mouth once a week On Wednesday . hydrALAZINE (APRESOLINE) 10 MG tablet Take 1 (one) tablet (10 mg total) by mouth 3 (three) times a day Hold for SBP less than 110 . ipratropium (ATROVENT) 42 mcg (0.06 %) nasal spray Instill 2 (two) sprays into each nostril 3 (three) times a day as needed for rhinitis . Lactobacillus rhamnosus GG (CULTURELLE) 10 billion cell capsule Take 1 (one) capsule by mouth daily . levothyroxine (Synthroid) 112 MCG tablet Take 1 (one) tablet (112 mcg total) by mouth once daily . [] lidocaine 4 % patch Place 1 (one) patch on the skin daily Apply to right hip Start: 07/21/25. [] lidocaine 4 % patch Place 2 (two) patches on the skin daily Apply to lower back Start: 07/21/25. melatonin 5 mg Tab Take 1 (one) tablet (5 mg total) by mouth nightly . mirtazapine (REMERON) 7.5 MG tablet Take 1 (one) tablet (7.5 mg total) by mouth nightly . multivitamin (multivitamin) per tablet Take 1 (one) tablet by mouth daily . ondansetron (ZOFRAN) 4 MG tablet Take 1 (one) tablet (4 mg total) by mouth every 8 (eight) hours as needed for nausea . oxyCODONE (ROXICODONE) 5 MG immediate release tablet Take 1 (one) tablet (5 mg total) by mouth every 8 (eight) hours as needed for pain . pantoprazole (PROTONIX) 20 MG tablet Take 1 (one) tablet (20 mg total) by mouth daily . QUEtiapine (SEROQUEL) 25 MG tablet Take 1 (one) tablet (25 mg total) by mouth nightly . vancomycin/0.9 % sod chloride (vancomycin in 0.9 % sodium chl) 750 mg/150 mL Soln Infuse 750 mg into a venous catheter daily On , , and Wed at Dialysis . Laboratory and Additional Data Reviewed: Laboratory 08/21/25 12:55 PM Microbiology 08/21/25 12:55 PM Pathology 08/21/25 12:55 PM Radiology 08/21/25 12:55 PM Cardiology 08/21/25 12:55 PM Medications 08/21/25 12:55 PM Transcriptions 08/21/25 12:55 PM Pertinent results: Labs: Lab trends: Lab Results Component Value Date WBC 12.47 (H) 08/03/2025 HGB 7.5 (L) 08/03/2025 HCT 24.3 (L) 08/03/2025 MCV 90.0 08/03/2025 PLT 322 08/03/2025 Chemistry Component Value Date/Time NA 139 08/03/2025 0547 K 4.2 08/03/2025 0547 CL 102 08/03/2025 0547 BUN 19 08/03/2025 0547 CREATININE 2.49 (H) 08/03/2025 0547 Component Value Date/Time CALCIUM 8.0 (L) 08/03/2025 0547 ALKPHOS 167 (H) 08/03/2025 0547 AST 15 08/03/2025 0547 ALT 7 08/03/2025 0547 BILITOT 0.3 08/03/2025 0547 Lab Results Component Value Date SEDRATE 75 (H) 07/12/2025 Imaging: MRI lumbar spine without contrast 07/07/25: 1. Likely developing discitis osteomyelitis at the L3-L4 level with associated epidural phlegmon extending superiorly and inferiorly from the disc space resulting in at least moderate spinal canal stenosis at this level. 2. No acute fracture. Likely chronic S1 superior endplate fracture. 3. Moderate to severe multilevel degenerative disc disease as described above. DESTIN 06/29/25: 1. Left ventricular systolic function is severely reduced, with ejection fraction estimated at 20 +/- 5%. 2. Right ventricular systolic function is moderate to severely reduced. 3. There is no thrombus visualized in the left atrial appendage. 4. There is mild to moderate aortic valve stenosis with valve area of 1.5 cm2. 5. There is moderate mitral valve regurgitation. 6. There is no pericardial effusion. 7. A 0.5 x 2.7 cm, mobile mass appears to be attached to the wall of the SVC approximately 2 cm from the right atrial interface. This finding is consistent with thrombus. Associated infection cannot be excluded. Assessment and Plan: Problem List Items Addressed This Visit Musculoskeletal and Integument Osteomyelitis of lumbar spine (HCC) - Primary Patient with MRSA bacteremia, SVC and RIJ thrombus related to dialysis line, lumbar discitis, with plans for 8 weeks IV vancomycin through 08/29/25. - Hoping for repeat MRI lumbar spine without contrast and TTE prior to abx completion, patient requested to reschedule; now planned 09/05/25. While it is reassuring that she is described as clinically improving, I would like to see those imaging studies before confirming stop date. I discussed with RN, no plans for patient discharge prior to 09/05. I will give new tentative stop date of 09/12 to allow time for studies to be read and sent to ID for review. Continue IV vancomycin dosed per pharmacy with HD until advised to stop. - continue to monitor for signs/symptoms of infection - after IV antibiotics complete, anticipate transitioning to PO doxycycline 100mg BID Indications for influenza vaccination were reviewed. The patient should receive the influenza vaccine. Follow Up: Will confirm antibiotic plan after MRI/TTE report available, but plan was to transition to PO doxycycline 100mg BID indefinitely once IV antibiotics were complete. I have spent 15 minutes with the patient and ECF staff reviewing the HPI and Plan of Care. [1] Social History Tobacco Use Smoking Status Never Smokeless Tobacco Not on file documented in this encounter [facility] 08-03-2025 Note [facility] 08-03-2025 Note [facility] 08-03-2025 Note [facility] 08-02-2025 Note [facility] 08-02-2025 Note [facility] 08-01-2025 Note [facility] 08-01-2025 Note [facility] 08-01-2025 Note [facility] 07-31-2025 Note [facility] 07-31-2025 Note [facility] 07-30-2025 Note [facility] 07-30-2025 Note [facility] 07-30-2025 Note [facility] 07-29-2025 Note [facility] 07-29-2025 Note [facility] 07-29-2025 Note [facility] 07-28-2025 Note [facility] 07-28-2025 Consult note Formatting of th is note is different from the original. Reason For Consult Closed-loop small bowel obstruction History Of Present Illness Ed Medina is a 75 y.o. female presenting with abdominal pain. Patient was recently released from [place] after being quite severely ill. Patient is maintained on dialysis. She was in cardiogenic as well as septic shock. I reviewed her records in the chart specifically the discharge summary which nicely summarized her stay. Patient was encephalopathic then but is quite awake and alert today. She has been staying at a local [facility] and being dialyzed they are although she has had difficulty the last couple of days completing her dialysis due to nausea. She had some episodes of vomiting. About 3 PM she developed severe suprapubic abdominal pain which prompted her eventual visit to the ER. CT scan showed findings suspicious for closed-loop bowel obstruction. She is seen with her and her son. She is also on Eliquis last dose was this evening according to the [facility] records. Patient's only previous surgeries were laparoscopic cholecystectomy and a hysterectomy. Past Medical History She has a past medical history of Asymptomatic menopausal state, Diabetes mellitus (Multi), Encounter for screening for malignant neoplasm of vagina, Hyperlipidemia, Hypertension, Hypothyroidism, Other conditions influencing health status, Other conditions influencing health status, Personal history of malignant neoplasm of other parts of uterus, Personal history of other diseases of the circulatory system, Personal history of other endocrine, nutritional and metabolic disease, Personal history of other endocrine, nutritional and metabolic disease, Personal history of other medical treatment, and Personal history of other medical treatment. Surgical History She has a past surgical history that includes Other surgical history (09/21/2019); Other surgical history (09/21/2019); Joint replacement; and Cataract extraction. Social History She reports that she has never smoked. She has never used smokeless tobacco. She reports that she does not drink alcohol and does not use drugs. Family History Family History[1] Allergies Patient has no known allergies. Review of Systems Constitutional: no fever, sweats, and chills Cardiovascular: No chest pain or palpitations Respiratory: No cough or shortness of breath Gastrointestinal: As in HPI Genitourinary: no dysuria or urinary frequency Musculoskeletal: no weakness or swelling Integumentary: no rashes Neurological: no confusion Endocrine: no heat or cold intolerance Heme/Lymph: no easy bruising or bleeding Physical Exam Constitutional: No acute distress, conversant, pleasant patient does appear ill and at times will wince in pain. Neurologic: Alert and oriented Psych: Appropriate affect Ears, Nose, Mouth and Throat: mucus membranes moist Pulmonary: No labored breathing Cardiovascular: Regular rate Abdomen: Soft, obese. She is tender suprapubically, significantly so. She does not have increased pain with coughing. Musculoskeletal: Moves all extremities, no edema Skin: No jaundice Last Recorded Vitals Blood pressure 126/63, pulse 87, temperature 36.4 C (97.5 F), temperature source Oral, resp. rate 15, height 1.53 m (5' 0.24), weight 86.9 kg (191 lb 8 oz), SpO2 97%. Relevant Results I have independently reviewed the CT films from this evening and there is an abnormal appearing cluster of small bowel loops in the pelvis/right lower quadrant with mesenteric edema which looks highly suspicious for closed-loop obstruction. There is no apparent wall thickening yet and no pneumatosis by my read. Results for orders placed or performed during the hospital encounter of 07/27/25 (from the past 24 hours) Lactate Result Value Ref Range Lactate 3.6 (H) 0.4 - 2.0 mmol/L Lipase Result Value Ref Range Lipase 8 (L) 9 - 82 U/L Comprehensive Metabolic Panel Result Value Ref Range Glucose 149 (H) 74 - 99 mg/dL Sodium 135 (L) 136 - 145 mmol/L Potassium 3.6 3.5 - 5.3 mmol/L Chloride 95 (L) 98 - 107 mmol/L Bicarbonate 25 21 - 32 mmol/L Anion Gap 19 10 - 20 mmol/L Urea Nitrogen 24 (H) 6 - 23 mg/dL Creatinine 3.24 (H) 0.50 - 1.05 mg/dL eGFR 14 (L) >60 mL/min/1.73m*2 Calcium 8.7 8.6 - 10.3 mg/dL Albumin 2.9 (L) 3.4 - 5.0 g/dL Alkaline Phosphatase 167 (H) 33 - 136 U/L Total Protein 6.9 6.4 - 8.2 g/dL AST 13 9 - 39 U/L Bilirubin, Total 0.7 0.0 - 1.2 mg/dL ALT 9 7 - 45 U/L CBC and Auto Differential Result Value Ref Range WBC 14.0 (H) 4.4 - 11.3 x10*3/uL nRBC 0.0 0.0 - 0.0 /100 WBCs RBC 3.73 (L) 4.00 - 5.20 x10*6/uL Hemoglobin 10.2 (L) 12.0 - 16.0 g/dL Hematocrit 31.7 (L) 36.0 - 46.0 % MCV 85 80 - 100 fL MCH 27.3 26.0 - 34.0 pg MCHC 32.2 32.0 - 36.0 g/dL RDW 15.1 (H) 11.5 - 14.5 % Platelets 386 150 - 450 x10*3/uL Neutrophils % 86.1 40.0 - 80.0 % Immature Granulocytes %, Automated 0.4 0.0 - 0.9 % Lymphocytes % 8.2 13.0 - 44.0 % Monocytes % 5.2 2.0 - 10.0 % Eosinophils % 0.0 0.0 - 6.0 % Basophils % 0.1 0.0 - 2.0 % Neutrophils Absolute 12.01 (H) 1.60 - 5.50 x10*3/uL Immature Granulocytes Absolute, Automated 0.06 0.00 - 0.50 x10*3/uL Lymphocytes Absolute 1.15 0.80 - 3.00 x10*3/uL Monocytes Absolute 0.72 0.05 - 0.80 x10*3/uL Eosinophils Absolute 0.00 0.00 - 0.40 x10*3/uL Basophils Absolute 0.02 0.00 - 0.10 x10*3/uL Magnesium Result Value Ref Range Magnesium 1.64 1.60 - 2.40 mg/dL Lactate Result Value Ref Range Lactate 1.6 0.4 - 2.0 mmol/L Type and screen Result Value Ref Range ABO TYPE AB Rh TYPE POS ANTIBODY SCREEN NEG Abo/Rh Group Test - STAT (VERAB) Result Value Ref Range ABO TYPE AB Rh TYPE POS Assessment/Plan Approximately 90 minutes were spent in evaluation placing various phone calls and making disposition. We called pharmacy to see about reversal agents and all we have available is Kcentra. 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 Lets I explained the fact they have option to simply say they wanted to return to [place] but I was concerned about ongoing ischemia developing in the bowel and we could operate on her here understanding she may exceed the resources at our institution and require transfer postoperatively. We have ordered a type and screen as if she has antibodies she will need to transfer in the event she bled during the OR. No antibodies were found. We also called blood bank and it would take several hours to get platelets down here. We called to see if there is any way to that I could get a second scrub and we were informed that the hospital has no beds. Call was placed to the transfer center and nursing had discussions with [place] and they have excepted her to the ER. They are currently trying to arrange transport and apparently are land unit just left. If it is a prolonged wait for transport I would recommend that we send her by helicopter. Given the closed-loop obstruction and impending surgery and the patient's intermittent vomiting NG tube will be placed. Tiffany Roman MD [1] No family history on file. [facility] Work Phone: 07-28-2025 Consult note Formatting of th is note is different from the original. Reason For Consult Closed-loop small bowel obstruction History Of Present Illness Ed Medina is a 75 y.o. female presenting with abdominal pain. Patient was recently released from [place] after being quite severely ill. Patient is maintained on dialysis. She was in cardiogenic as well as septic shock. I reviewed her records in the chart specifically the discharge summary which nicely summarized her stay. Patient was encephalopathic then but is quite awake and alert today. She has been staying at a local [facility] and being dialyzed they are although she has had difficulty the last couple of days completing her dialysis due to nausea. She had some episodes of vomiting. About 3 PM she developed severe suprapubic abdominal pain which prompted her eventual visit to the ER. CT scan showed findings suspicious for closed-loop bowel obstruction. She is seen with her and her son. She is also on Eliquis last dose was this evening according to the ECF records. Patient's only previous surgeries were laparoscopic cholecystectomy and a hysterectomy. Past Medical History She has a past medical history of Asymptomatic menopausal state, Diabetes mellitus (Multi), Encounter for screening for malignant neoplasm of vagina, Hyperlipidemia, Hypertension, Hypothyroidism, Other conditions influencing health status, Other conditions influencing health status, Personal history of malignant neoplasm of other parts of uterus, Personal history of other diseases of the circulatory system, Personal history of other endocrine, nutritional and metabolic disease, Personal history of other endocrine, nutritional and metabolic disease, Personal history of other medical treatment, and Personal history of other medical treatment. Surgical History She has a past surgical history that includes Other surgical history (09/21/2019); Other surgical history (09/21/2019); Joint replacement; and Cataract extraction. Social History She reports that she has never smoked. She has never used smokeless tobacco. She reports that she does not drink alcohol and does not use drugs. Family History Family History[1] Allergies Patient has no known allergies. Review of Systems Constitutional: no fever, sweats, and chills Cardiovascular: No chest pain or palpitations Respiratory: No cough or shortness of breath Gastrointestinal: As in HPI Genitourinary: no dysuria or urinary frequency Musculoskeletal: no weakness or swelling Integumentary: no rashes Neurological: no confusion Endocrine: no heat or cold intolerance Heme/Lymph: no easy bruising or bleeding Physical Exam Constitutional: No acute distress, conversant, pleasant patient does appear ill and at times will wince in pain. Neurologic: Alert and oriented Psych: Appropriate affect Ears, Nose, Mouth and Throat: mucus membranes moist Pulmonary: No labored breathing Cardiovascular: Regular rate Abdomen: Soft, obese. She is tender suprapubically, significantly so. She does not have increased pain with coughing. Musculoskeletal: Moves all extremities, no edema Skin: No jaundice Last Recorded Vitals Blood pressure 126/63, pulse 87, temperature 36.4 C (97.5 F), temperature source Oral, resp. rate 15, height 1.53 m (5' 0.24), weight 86.9 kg (191 lb 8 oz), SpO2 97%. Relevant Results I have independently reviewed the CT films from this evening and there is an abnormal appearing cluster of small bowel loops in the pelvis/right lower quadrant with mesenteric edema which looks highly suspicious for closed-loop obstruction. There is no apparent wall thickening yet and no pneumatosis by my read. Results for orders placed or performed during the hospital encounter of 07/27/25 (from the past 24 hours) Lactate Result Value Ref Range Lactate 3.6 (H) 0.4 - 2.0 mmol/L Lipase Result Value Ref Range Lipase 8 (L) 9 - 82 U/L Comprehensive Metabolic Panel Result Value Ref Range Glucose 149 (H) 74 - 99 mg/dL Sodium 135 (L) 136 - 145 mmol/L Potassium 3.6 3.5 - 5.3 mmol/L Chloride 95 (L) 98 - 107 mmol/L Bicarbonate 25 21 - 32 mmol/L Anion Gap 19 10 - 20 mmol/L Urea Nitrogen 24 (H) 6 - 23 mg/dL Creatinine 3.24 (H) 0.50 - 1.05 mg/dL eGFR 14 (L) >60 mL/min/1.73m*2 Calcium 8.7 8.6 - 10.3 mg/dL Albumin 2.9 (L) 3.4 - 5.0 g/dL Alkaline Phosphatase 167 (H) 33 - 136 U/L Total Protein 6.9 6.4 - 8.2 g/dL AST 13 9 - 39 U/L Bilirubin, Total 0.7 0.0 - 1.2 mg/dL ALT 9 7 - 45 U/L CBC and Auto Differential Result Value Ref Range WBC 14.0 (H) 4.4 - 11.3 x10*3/uL nRBC 0.0 0.0 - 0.0 /100 WBCs RBC 3.73 (L) 4.00 - 5.20 x10*6/uL Hemoglobin 10.2 (L) 12.0 - 16.0 g/dL Hematocrit 31.7 (L) 36.0 - 46.0 % MCV 85 80 - 100 fL MCH 27.3 26.0 - 34.0 pg MCHC 32.2 32.0 - 36.0 g/dL RDW 15.1 (H) 11.5 - 14.5 % Platelets 386 150 - 450 x10*3/uL Neutrophils % 86.1 40.0 - 80.0 % Immature Granulocytes %, Automated 0.4 0.0 - 0.9 % Lymphocytes % 8.2 13.0 - 44.0 % Monocytes % 5.2 2.0 - 10.0 % Eosinophils % 0.0 0.0 - 6.0 % Basophils % 0.1 0.0 - 2.0 % Neutrophils Absolute 12.01 (H) 1.60 - 5.50 x10*3/uL Immature Granulocytes Absolute, Automated 0.06 0.00 - 0.50 x10*3/uL Lymphocytes Absolute 1.15 0.80 - 3.00 x10*3/uL Monocytes Absolute 0.72 0.05 - 0.80 x10*3/uL Eosinophils Absolute 0.00 0.00 - 0.40 x10*3/uL Basophils Absolute 0.02 0.00 - 0.10 x10*3/uL Magnesium Result Value Ref Range Magnesium 1.64 1.60 - 2.40 mg/dL Lactate Result Value Ref Range Lactate 1.6 0.4 - 2.0 mmol/L Type and screen Result Value Ref Range ABO TYPE AB Rh TYPE POS ANTIBODY SCREEN NEG Abo/Rh Group Test - STAT (VERAB) Result Value Ref Range ABO TYPE AB Rh TYPE POS Assessment/Plan Approximately 90 minutes were spent in evaluation placing various phone calls and making disposition. We called pharmacy to see about reversal agents and all we have available is Kcentra. 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 Lets I explained the fact they have option to simply say they wanted to return to [place] but I was concerned about ongoing ischemia developing in the bowel and we could operate on her here understanding she may exceed the resources at our institution and require transfer postoperatively. We have ordered a type and screen as if she has antibodies she will need to transfer in the event she bled during the OR. No antibodies were found. We also called blood bank and it would take several hours to get platelets down here. We called to see if there is any way to that I could get a second scrub and we were informed that the hospital has no beds. Call was placed to the transfer center and nursing had discussions with [place] and they have excepted her to the ER. They are currently trying to arrange transport and apparently are land unit just left. If it is a prolonged wait for transport I would recommend that we send her by helicopter. Given the closed-loop obstruction and impending surgery and the patient's intermittent vomiting NG tube will be placed. Tiffany Roman MD [1] No family history on file. documented in this encounter [facility] Work Phone: 07-20-2025 Miscellaneous Notes Plan of care complete. Attempted to call [id number] report to [facility] at [phone]. Left voicemail with callback number to [facility] nurse's station. Chart reviewed, ID signed off 07/13, pt remained at [facility] pending placement. Transport planned today. Communicated with [facility] and pharmacy to ensure pt had appropriate vancomycin dose today to last until next HD session at [facility] on 07/23, further dosing per ECF/HD staff. ID plan otherwise unchanged. Bedside report was completed including the discussion of the following, if applicable: Electronic Medical Record Review Deterioration Index (DI) Score Physician orders - active & held orders MAR - overdue & held meds Infusing medications/fluids HAND OFF COMPLETED IN JAN Peripheral IVs IV dressing clean, dry, and intact IV tubing changed less than 96 hours IV tubing dated, initialed, labeled IV changed less than equal to 96 hours Central Lines CHG bath completed and documented daily Dressing present and correctly positioned The central line catheter is secured to the patient's body Central line dressing is clean, dry and intact Line necessity reviewed All hubs on the central line have a swab cap Urinary Catheters Red seal is intact Tubing is free of dependent loops and without standing urine Urine collection bag is below the bladder Catheter tubing is secured to the patient's body to prevent urethral tension No components of the urinary catheter system are touching the floor Catheter necessity reviewed Skin Integrity Turning schedule and last turned Dressings clean, dry, and intact Skin Assessment completed - skin integrity, any findings? Falls Fall risk score Intervention Bundle (check all in place) Door sign Bed/Chair Alarm on Fall Risk band Non-skid socks Patient centered interventions NG/OG Tube intact and functioning as ordered Tubing dated, initialed, labeled Tube feed solution as ordered TELE Leads connected Tele Box on and working appropriately Verified by note author and SHON Martin. Neurosurgery Sign-Off Consulting Neurosurgeon: Dr. Cai Diagnosis: Lumbar osteomyelitis/discitis Plan: No acute neurosurgical intervention warranted Continue antibiotic therapy per ID. Follow-up: With Dr. Cai Follow up as needed. Plan to follow-up with ID. Medications: Per primary team. OK for AC/AP from neurosurgical standpoint. DVT Prophylaxis: OK for chemical DVT ppx per neurosurgery. Braces: No brace/collar needed Activity: Activity as tolerated. D/w Dr. Cai Discharge instructions updated with appropriate follow-up. The Neurosurgery service will sign off at this time. Please re-consult or call our 07/06 on-call number at [phone] with any questions, concerns or clinical updates. Bedside report was completed including the discussion of the following, if applicable: Electronic Medical Record Review Deterioration Index (DI) Score Physician orders - active & held orders MAR - overdue & held meds Infusing medications/fluids HAND OFF COMPLETED IN JAN Peripheral IVs IV dressing clean, dry, and intact IV tubing changed less than 96 hours IV tubing dated, initialed, labeled IV changed less than equal to 96 hours Central Lines CHG bath completed and documented daily Dressing present and correctly positioned The central line catheter is secured to the patient's body Central line dressing is clean, dry and intact Line necessity reviewed All hubs on the central line have a swab cap Urinary Catheters Red seal is intact Tubing is free of dependent loops and without standing urine Urine collection bag is below the bladder Catheter tubing is secured to the patient's body to prevent urethral tension No components of the urinary catheter system are touching the floor Catheter necessity reviewed Skin Integrity Turning schedule and last turned Dressings clean, dry, and intact Skin Assessment completed - skin integrity, any findings? Falls Fall risk score Intervention Bundle (check all in place) Door sign Bed/Chair Alarm on Fall Risk band Non-skid socks Patient centered interventions NG/OG Tube intact and functioning as ordered Tubing dated, initialed, labeled Tube feed solution as ordered TELE Leads connected Tele Box on and working appropriately Verified by note author and , Ricarda MENENDEZ. PHYSICAL THERAPY VISIT VARIANCE NOTE Attempted to see patient at this time, but unable secondary to: Patient Unavailable (comment) (Pt verbalized finally being comfortable after Right hip pain. She politely requested to hold until tomorrow 07/18). Will follow up as appropriate. Cosigned by Radha Luna, PT at 07/17/2025 3:21 PM EDT Problem: Actual or potential alteration in health Goal: Absence of healthcare acquired conditions Outcome: Partially Met Goal: Knowledge of Interdisciplinary Plan of Care Outcome: Partially Met Goal: Knowledge of Enviroment Outcome: Partially Met Problem: Pain Goal: Reduced pain sensation Outcome: Partially Met Goal: Control of acute pain to acceptable level Outcome: Partially Met Goal: Able to cope with pain Outcome: Partially Met Goal: Able to achieve maximum level of physical functioning Outcome: Partially Met Goal: Able to achieve maximum level of psychosocial functioning Outcome: Partially Met Problem: Actual or potential alteration in health Goal: Absence of healthcare acquired conditions Outcome: Partially Met Goal: Knowledge of Interdisciplinary Plan of Care Outcome: Partially Met Goal: Knowledge of Enviroment Outcome: Partially Met This nurse stopped Heparin per orders, the patient received her first dose of Eliquis this evening. Bedside report was completed including the discussion of the following, if applicable: Electronic Medical Record Review Deterioration Index (DI) Score Physician orders - active & held orders MAR - overdue & held meds Infusing medications/fluids HAND OFF COMPLETED IN JAN Peripheral IVs IV dressing clean, dry, and intact IV tubing changed less than 96 hours IV tubing dated, initialed, labeled IV changed less than equal to 96 hours Central Lines CHG bath completed and documented daily Dressing present and correctly positioned The central line catheter is secured to the patient's body Central line dressing is clean, dry and intact Line necessity reviewed All hubs on the central line have a swab cap Urinary Catheters Red seal is intact Tubing is free of dependent loops and without standing urine Urine collection bag is below the bladder Catheter tubing is secured to the patient's body to prevent urethral tension No components of the urinary catheter system are touching the floor Catheter necessity reviewed Skin Integrity Turning schedule and last turned Dressings clean, dry, and intact Skin Assessment completed - skin integrity, any findings? Falls Fall risk score Intervention Bundle (check all in place) Door sign Bed/Chair Alarm on Fall Risk band Non-skid socks Patient centered interventions NG/OG Tube intact and functioning as ordered Tubing dated, initialed, labeled Tube feed solution as ordered TELE Leads connected Tele Box on and working appropriately Verified by note author and SHON Khan. SPEECH THERAPY VISIT VARIANCE NOTE Attempted to see patient at this time, but unable secondary to: Visit Variance: (dialysis). Will follow up as appropriate. OCCUPATIONAL THERAPY VISIT VARIANCE NOTE Attempted to see patient at this time, but unable secondary to: Patient Unavailable (comment) (Dialysis). Will follow up as appropriate. Infectious Disease Sign-Off Indication: Bacteremia Osteomyelitis (vertebral) +/- Discitis Infected HD line SVC and right internal jugular thrombus Antibiotic: vancomycin IV extended interval dosing at HD: Pharmacy to dose, goal AUC 400-600 Duration: 8 weeks Stop Date: 08/29/25 Dosing per pharmacy/HD After IV vancomycin complete, patient will need to change to PO doxycycline 100mg q12 indefinitely Labs: CBC with diff/platelets, CMP, ESR, CRP (inflammation), and vancomycin level per HD site Low threshold to repeat blood cultures if clinically indicated and will likely order at follow-up visit for surveillance. Imaging: MRI lumbar spine without contrast in early 08/2025, likely will need to be local to her TTE before end of abx ID Follow-up: 6-[address] Stewart. Unclear if she will be able to travel for follow-up, may need to be telemedicine. PO doxycycline after IV abx complete INFECTIOUS DISEASES DAILY PROGRESS NOTE Patient Name: Misael Medina MR #: [id number] Date of Service: 07/13/2025 Impression/Recommendations: 1) MRSA bacteremia 2) shock 3) ESRD/CKD recently on HD 4) h/o aortic stenosis 5) SVC thrombus 6) infected dialysis catheter 7) DM2 8) L3-4 discitis/osteomyelitis and epidural phlegmon 9) right hip pain, s/p R ARMIDA Patient with persistent MRSA bacteremia 06/25-06/27 per OSH records, HD catheter removed 06/26 with purulence at site. Ongoing instability requiring transfer. - continue vancomycin dosed per pharmacy with HD as blood cultures have finalized negative - blood cx 06/27 positive. Blood cx 06/29 positive, blood cx 07/02 2 of 2 MRSA. Blood cx 07/04 and 07/07 negative. - pt had HD catheter removed 06/26, there was still infected-looking fluid coming from site on arrival to [facility]. No obvious abscess on CT chest. Improved. - DESTIN 06/29 with SVC thrombus, no obvious other vegetation. Repeat TTE near end of abx or sooner if clinically indicated. - nephrology following, now on iHD. New HD line placed 07/11. She will need additional lab monitoring while on IV vancomycin, hope it can be done at [facility]. - monitor for joint/back pain. MRI lumbar spine finally able to be obtained, read as L3-L4 discitis/osteomyelitis, epidural phlegmon; neurosurgery consulted, planning conservative management. Repeat MRI lumbar spine before planned 8 week stop date. - abnormal head CT 06/30, MRI brain limited by motion, no obvious infarct - some purulence of left toe initially, d/w wound care. XR reviewed, consider podiatry evaluation if worsens. Now dry and scabbed. - pt reported right hip pain, XR no mechanical issue. ESR/CRP elevated as expected (ESR 52, CRP 103). Fairly good ROM passively 07/10. Ortho felt low suspicion for PJI also, and CT without joint effusion. Advised pt to continue to monitor for any change in joint/back pain. - further recommendations pending clinical course. Prognosis appears poor half-way. Palliative care team followed. As aggressive care continues, likely 8 weeks of IV vancomycin at HD through 08/29/25 followed by PO suppression with doxycycline. D/w [facility], nephrology. ID service will sign off at this time. Please call with any questions or concerns, or if patient needs to be reassessed. Perpetual Assessment: Misael Medina is a 75 y.o. female on hospital day 15 with MRSA bacteremia. Subjective/Objective: Subjective: Patient was seen and examined in follow-up. Afebrile. No change in pain. Ortho evaluation reviewed. She denies other sites of pain. Review of Systems: The following system(s) were reviewed and negative. Pertinent positive and negative findings are noted in the HPI. [x] Const [] Eyes [] ENT [x] Resp [x] CV [x] GI [] [] Neuro [x] Musc [x] Skin [] Psych [] Endo [] Allergy [] Heme/Lymph [] Unable to obtain due to clinical status Physical Examination: BP 120/77 (BP Location: Right arm, Patient Position: Lying) Pulse 73 Temp 97.6 F (36.4 C) (Oral) Resp 18 Ht 5' Wt 86.7 kg (191 lb 2.2 oz) SpO2 96% BMI 37.33 kg/m General: NAD HEENT: Head: NCAT. Eyes: closed. OP dry mm Neck: Symmetrical Respiratory: Diminished, scattered coarse Cardiovascular: Distant S1S2 Abdomen: Soft; obese, nontender, nondistended Extremities: + edema Musculoskeletal: Left toe with small wound Skin: No diffuse rash, pale : Jimenez Lines: R chest HD catheter Laboratory and Additional Data Reviewed: Laboratory 07/13/25 10:27 AM Microbiology 07/13/25 10:27 AM Pathology 07/13/25 10:27 AM Radiology 07/13/25 10:27 AM Cardiology 07/13/25 10:27 AM Medications 07/13/25 10:27 AM Transcriptions 07/13/25 10:27 AM Current medications: atorvastatin 10 mg Oral Nightly famotidine 20 mg Oral Nightly hydrALAZINE 10 mg Oral Q8H YOLI lispro insulin 0-15 Units Subcutaneous at bedtime insulin lispro 0-30 Units Subcutaneous TID AC levothyroxine 112 mcg Oral Daily lidocaine 2 patch Transdermal Daily melatonin 5 mg Oral Nightly mirtazapine 7.5 mg Oral Nightly QUEtiapine 25 mg Oral Nightly senna-docusate 1 tablet Oral BID sodium chloride (PF) 10 mL Intracatheter Q8H YOLI sodium chloride (PF) 5 mL Intravenous Q8H YOLI vancomycin 750 mg Intravenous Once vancomycin per pharmacy 1 each Intravenous as indicated by pharmacokinetics Results from last 7 days Lab Units 07/13/257 07/12/25 0049 07/11/25 0412 WBC K/mcL 5.61 6.26 7.32 HGB g/dL 8.5* 8.4* 8.8* HCT % 26.6* 26.7* 27.8* PLT K/mcL 148* 139* 171 Results from last 7 days Lab Units 07/13/257 07/12/25 0049 07/11/25 0412 SODIUM mmol/L 140 137 138 POTASSIUM mmol/L 3.9 4.3 4.1 CHLORIDE mmol/L 102 100 100 BUN mg/dL 41* 25 27* CREATININE mg/dL 4.29* 3.53* 4.01* GLUCOSE mg/dL 80 96 79 CALCIUM mg/dL 8.7 8.2* 8.8 Comments: WBC 5.61, Cr 4.29 LFTs reviewed [place] micro lab: Blood cx 06/25 MRSA Blood cx 06/26 MRSA Blood cx 06/27 (from central line) MRSA Cath tip 06/26 staph aureus (presumed MRSA) Pleural fluid 06/28 final negative Sputum cx 06/25 normal nadia Urine cx 06/25 yeast (not albicans) and GNB Wound cx 03/19/25 (unknown source) staph epi, MRSA, E faecalis, corynebacterium. Wound cx 03/16/25 (unknown source) E casseliflavus, E avium, GPR Blood cx H 06/29 2 of 2 MRSA, vancomycin DELIA 1.0 Blood cx 07/02 2 of 2 MRSA Blood cx 07/04 negative Blood cx 07/07 negative CTPA, A/P report Jane reviewed TTE report reviewed DESTIN 06/29: 1. Left ventricular systolic function is severely reduced, with ejection fraction estimated at 20 +/- 5%. 2. Right ventricular systolic function is moderate to severely reduced. 3. There is no thrombus visualized in the left atrial appendage. 4. There is mild to moderate aortic valve stenosis with valve area of 1.5 cm2. 5. There is moderate mitral valve regurgitation. 6. There is no pericardial effusion. 7. A 0.5 x 2.7 cm, mobile mass appears to be attached to the wall of the SVC approximately 2 cm from the right atrial interface. This finding is consistent with thrombus. Associated infection cannot be excluded. CT CAP 06/30: 1. Appropriately positioned ETT and gastric tube. 2. Cardiomegaly, pulmonary edema and bilateral pleural effusions suggesting decompensated CHF. 3. Heavy three-vessel coronary artery calcifications. 4. Complete atelectasis of the bilateral lower lobes adjacent to the large effusions. 5. Common bile duct measuring 10 mm. This may represent reservoir effect related to patient's age and history of cholecystectomy. 6. Ascites in all 4 quadrants and anasarca in the body wall compatible with volume overload. CT head 06/30: 1. Evaluation is limited due to extensive streaking artifact from dental hardware as well as patient motion. Ill-defined hypodensities throughout the bilateral cerebellar hemispheres are nonspecific and could be artifactual. Consider MRI brain if clinically warranted. 2. No gross intracranial hemorrhage. MRI lumbar spine without contrast 07/07: 1. Likely developing discitis osteomyelitis at the L3-L4 level with associated epidural phlegmon extending superiorly and inferiorly from the disc space resulting in at least moderate spinal canal stenosis at this level. 2. No acute fracture. Likely chronic S1 superior endplate fracture. 3. Moderate to severe multilevel degenerative disc disease as described above. MRI brain without contrast 07/07: Evaluation is limited due to patient motion artifact. No gross acute intracranial process. XR right hip report reviewed CT pelvis without contrast 07/12: 1. No acute findings in the imaged pelvis. 2. No significant right hip joint effusion within limitations of streak artifact from patient's right hip arthroplasty. 3. Body wall edema. 4. Chronic findings as above. Assessment Detail: The total time spent for this visit was 35 minutes. Greater than 50% of the time was spent in counseling and coordination of care regarding MRSA bacteremia, SVC thrombus. Toño Stewart MD [facility] - Infectious Diseases Office/answering service [phone] 07/13/2025 10:27 AM Orthopedic Surgery Sign-Off Diagnosis: Right back/buttock pain Surgeries/interventions: N/a Weight-bearing status: WBAT RLE Immobilization N/a Incision/wound care N/a Follow up appointment With PCP/primary surgeon OCCUPATIONAL THERAPY VISIT VARIANCE NOTE Attempted to see patient at this time, but unable secondary to: Patient Unavailable (comment) (scheduled for CT soon, 2nd attempt this date). Will follow up as appropriate. Orthopaedic Consult Note I personally saw and evaluated the patient at bedside independent of the orthopedic SAYRA. I have reviewed and agree with the documented history, exam, and plan of care, with the following additions and corrections. S: 75 y/o F who presents from OSH on 06/28. She was initially admitted at OSH after fall and LOC. She was transferred to [facility] several days later for respiratory failure requiring intubation and MRSA bacteremia that was presumed to be from HD catheter. This has subsequently been removed. Our service is being consulted due to right hip pain in setting of prior ARMIDA. She reports this hip was done [address] Love. She notes worsening pain over the past 1 month. This pain is localized to her buttock. She denies any groin pain, thigh pain, or trochanteric pain. She does have L3-4 discitis/osteo which is being managed nonoperatively by neurosurgery. O: On exam of her right lower extremity it is warm and all perfused. Gross motor and sensation are intact. Her incision along her posterior hip is well-healed. I am able to range her hip fully without any reproduction of groin pain. No pain with logroll. No pain with axial loading. No pain with lateral palpation over her greater trochanter. Overall, she does not have any evidence of painful ARMIDA. I believe that all of her pain is coming from her back. A: Misael Medina is a 75 y.o. female with MRSA bacteremia with right sided buttock pain. P: - Given the overall history and where she describes her pain, I have a low concern for PJI. - However, she does have MRSA bacteremia as well as elevated inflammatory markers. - I do not see any effusion in her hip on the CT that was performed 12 days ago. - However, I do think it is reasonable to repeat a CT of her pelvis to ensure there is no effusion. - If there is no hip effusion, no need for aspiration. - However, if there is a hip effusion, we will plan for right hip aspiration with radiology - WBAT - Continue antibiotics - Will update our plan after CT results Milton Powers DO Orthopaedic Surgery Resident Associated Problem(s): Pain in hip 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 (HCC) 75 yo F s/p right ARMIDA approximately [address] Love ([place]), here for MRSA bacteremia and right hip pain for 1 month - D/w Dr. Powers - XR reviewed independently and negative for acute fracture or abnormality; hardware in satisfactory position - No plan for orthopedic intervention and overall low concern for infectious etiology of the hip although may consider advanced imaging - Will defer ordering of advanced imaging after discussion with Orthopedic attending - WBC 6.26, CRP 103 / ESR 52 on admission- repeat labs pend - Continue IV antibiotics for MRSA bacteremia per ID recommendations - WBAT RLE - Will follow and append plan as appropriate OCCUPATIONAL THERAPY VISIT VARIANCE NOTE Attempted to see patient at this time, but unable secondary to: Patient Unavailable (comment) (back in bed requesting for OT to stop back later). Will follow up as appropriate. Problem: Actual or potential alteration in health Goal: Absence of healthcare acquired conditions Outcome: Partially Met Goal: Knowledge of Interdisciplinary Plan of Care Outcome: Partially Met Goal: Knowledge of Enviroment Outcome: Partially Met SPEECH THERAPY VISIT VARIANCE NOTE Attempted to see patient at this time, but unable secondary to: Visit Variance: Awaiting Medical Clearance (NPO for IR). Will follow up as appropriate. Vascular & Interventional Radiology Provided By [facility] FOR PROVIDER USE ONLY: [facility] Interventional Radiology: [phone] [facility] Interventional Radiology: [phone] [facility] Interventional Radiology: [phone] 07/06 [facility] physician contact: [phone]) FOR PATIENT AND PROVIDERS: [facility]: [phone] [email or web address] Procedure: Permcath placement Indication: JOSUE on CKD III secondary to ATN necessitating HD with recent MSSA bacteremia and septic shock. 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 History of HFrEF, HTN, Type II DM, hypothyroidism, and morbid obesity. Code Status: Full Code Allergies: Grass pollen Exam: PACU Vitals 07/11/25 0756 BP: (!) 102/55 Pulse: 79 Resp: 17 Temp: 98.6 F (37 C) SpO2: General: WNWD female, in NAD. CV: The pulse is regular. Telemetry tracings were reviewed. Respiratory: No evidence for respiratory distress. No accessory muscle use. No audible wheezes. Mallampati Airway Classification: Class I: The entire tonsillar pillars, uvula, hard and soft palates are visualized Laboratory: Lab Results Component Value Date WBC 7.32 07/11/2025 HGB 8.8 (L) 07/11/2025 HCT 27.8 (L) 07/11/2025 MCV 90.0 07/11/2025 PLT 171 07/11/2025 Lab Results Component Value Date GLUCOSE 79 07/11/2025 CALCIUM 8.8 07/11/2025 NA 138 07/11/2025 K 4.1 07/11/2025 CL 100 07/11/2025 BUN 27 (H) 07/11/2025 CREATININE 4.01 (H) 07/11/2025 Protime (PT) Date Value Ref Range Status 07/10/2025 15.7 (H) 11.8 - 14.3 seconds Final INR Date Value Ref Range Status 07/10/2025 1.2 (H) 0.8 - 1.1 Final Preprocedural ASA: ASA 3 - Patient with moderate systemic disease with functional limitations Assessment: The comprehensive, admission History & Physical was reviewed and the patient examined. The procedure, its benefits and risks were discussed in detail with the patient and/or family. Informed consent obtained. Proceed with Permcath placement, as requested. Other: Reviewed recent CT imaging with Dr. Oliva; RIJ thrombus is nonocclusive, +- SVC thrombus. OK to place right sided catheter if able. Bedside report was completed including the discussion of the following, if applicable: Electronic Medical Record Review Deterioration Index (DI) Score Physician orders - active & held orders MAR - overdue & held meds Infusing medications/fluids HAND OFF COMPLETED IN JAN Peripheral IVs IV dressing clean, dry, and intact IV tubing changed less than 96 hours IV tubing dated, initialed, labeled IV changed less than equal to 96 hours Central Lines CHG bath completed and documented daily Dressing present and correctly positioned The central line catheter is secured to the patient's body Central line dressing is clean, dry and intact Line necessity reviewed All hubs on the central line have a swab cap Urinary Catheters Red seal is intact Tubing is free of dependent loops and without standing urine Urine collection bag is below the bladder Catheter tubing is secured to the patient's body to prevent urethral tension No components of the urinary catheter system are touching the floor Catheter necessity reviewed Skin Integrity Turning schedule and last turned Dressings clean, dry, and intact Skin Assessment completed - skin integrity, any findings? Falls Fall risk score Intervention Bundle (check all in place) Door sign Bed/Chair Alarm on Fall Risk band Non-skid socks Patient centered interventions NG/OG Tube intact and functioning as ordered Tubing dated, initialed, labeled Tube feed solution as ordered TELE Leads connected Tele Box on and working appropriately Verified by note author and , Fifi MENENDEZ. Called patient's , Jonny Medina, to update him on neurosurgery plan of care. No acute neurosurgical intervention warranted for L3-4 osteomyelitis/discitis. There are no focal deficits noted and her BUE/BLE are 5/5. Recommend medical management with antibiotics per ID. Currently on Teflaro and Dapto. Neurosurgery will peripherally follow to monitor stability of motor exam. Please don't hesitate to contact our service with any questions/concerns. Above plan discussed with Dr. Cai. Updated primary, ID, and palliative care teams. Claudio Hamm CNP Neurosurgery VIR I/P PRE-PROCEDURE SUMMARY 1950 ALLERGIES is allergic to grass pollen. ROOM 3320/01 CODE STATUS Full Code ISOLATION There are no current isolations documented for this patient. PRECAUTIONS None Pre-Meds Needed? Ordered: PROCEDURE INFORMATION PROCEDURE: perm cath placement Diagnosis: ESRD Can patient consent? Yes Family/POA name and contact: AC/AP MEDS LABS Denies anticoagulation/antiplatelet Last Dose: Held: Denies anticoagulation/antiplatelet Last Dose: Held: Heparin gtt Last Dose: Held: ANTIBIOTIC ADMINISTRATION Hx ceftaroline (TEFLARO) 200 mg in sodium chloride 0.9 % (NS) 50 mL IVPB Last given: 1250 Frequency: Every 8 hours Orders not given: DAPTOmycin (CUBICIN) IVP syringe 700 mg DIET ORDER NPO Results from last 7 days Lab Units 07/10/25 0829 07/10/25 0133 PTT seconds 77* 113* PLT K/mcL -- 164 CREATININE mg/dL -- 3.30* EGFR mL/min/1.73 m2 -- 14* RECENT VITALS (PCU 2) Temp POC Glucose HR BP RR SpO2 NEURO LDA RESP + O2 Neuro (WDL): Unchanged Level of Consciousness: Alert, Awake Orientation Level: Oriented X4 Neuro Symptoms: Weakness PIV Respiratory (WDL): Unchanged Respiratory Pattern: Regular, Easy, Unlabored SpO2: 93 % O2 Device: Nasal cannula O2 Flow Rate (L/min): 2 L/min CARDIAC INFUSIONS PULSES Cardiac (WDL): Unchanged Cardiac Rhythm: Sinus Ectopy: Premature atrial contractions Cardiac Symptoms: Weakness heparin infusion (weight based dosing) 10 Units/kg/hr (07/10/25 1036) heparin sodium chloride 0.9 % R DP R PT L DP L PT HISTORY SPECIAL CONSIDERATIONS Past Medical History: Diagnosis Date Arthritis Cataracts, bilateral Colon polyp 2011 Tubular adenoma Diabetes (HCC) Endometrial cancer (HCC) 08/2014 s/p Hysterectomy and External beam radiation as well as internal radiation, no chemo...[facility]COLOGIST: [facility] [place] (Dr. Ryan) Hyperlipidemia Hypertension Morbid obesity (HCC) Thyroid disease Sleep Apnea No Palliative Care Sign-Off Discharge Medications: N/A Goals of Care Discussion Outcome: Desire to continue disease directed care, discharge to local SNF/rehab when stable to do so Code Status: Full Code Symptom Management Recommendations: N/A Follow-up Appointment: With PCP. Clarita Aguilar DO Palliative Medicine Physician Cell: see hospital directory or treatment team Bedside report was completed including the discussion of the following, if applicable: Electronic Medical Record Review Deterioration Index (DI) Score Physician orders - active & held orders MAR - overdue & held meds Infusing medications/fluids HAND OFF COMPLETED IN JAN Peripheral IVs IV dressing clean, dry, and intact IV tubing changed less than 96 hours IV tubing dated, initialed, labeled IV changed less than equal to 96 hours Central Lines CHG bath completed and documented daily Dressing present and correctly positioned The central line catheter is secured to the patient's body Central line dressing is clean, dry and intact Line necessity reviewed All hubs on the central line have a swab cap Urinary Catheters Red seal is intact Tubing is free of dependent loops and without standing urine Urine collection bag is below the bladder Catheter tubing is secured to the patient's body to prevent urethral tension No components of the urinary catheter system are touching the floor Catheter necessity reviewed Skin Integrity Turning schedule and last turned Dressings clean, dry, and intact Skin Assessment completed - skin integrity, any findings? Falls Fall risk score Intervention Bundle (check all in place) Door sign Bed/Chair Alarm on Fall Risk band Non-skid socks Patient centered interventions NG/OG Tube intact and functioning as ordered Tubing dated, initialed, labeled Tube feed solution as ordered TELE Leads connected Tele Box on and working appropriately Verified by note author and Fifi Bach, RN. PHYSICAL THERAPY VISIT VARIANCE NOTE Attempted to see patient at this time, but unable secondary to: Patient Unavailable (comment) (Off floor in dialysis in AM, unble to return in PM.). Will follow up as appropriate. Cosigned by Radha Luna, PT at 07/09/2025 3:16 PM EDT Bedside report was completed including the discussion of the following, if applicable: Electronic Medical Record Review Deterioration Index (DI) Score Physician orders - active & held orders MAR - overdue & held meds Infusing medications/fluids HAND OFF COMPLETED IN [facility] Peripheral IVs IV dressing clean, dry, and intact IV tubing changed less than 96 hours IV tubing dated, initialed, labeled IV changed less than equal to 96 hours Central Lines CHG bath completed and documented daily Dressing present and correctly positioned The central line catheter is secured to the patient's body Central line dressing is clean, dry and intact Line necessity reviewed All hubs on the central line have a swab cap Urinary Catheters Red seal is intact Tubing is free of dependent loops and without standing urine Urine collection bag is below the bladder Catheter tubing is secured to the patient's body to prevent urethral tension No components of the urinary catheter system are touching the floor Catheter necessity reviewed Skin Integrity Turning schedule and last turned Dressings clean, dry, and intact Skin Assessment completed - skin integrity, any findings? Falls Fall risk score Intervention Bundle (check all in place) Door sign Bed/Chair Alarm on Fall Risk band Non-skid socks Patient centered interventions NG/OG Tube intact and functioning as ordered Tubing dated, initialed, labeled Tube feed solution as ordered TELE Leads connected Tele Box on and working appropriately Verified by note author and SHON Wisdom. Called by RN- patient with 2 dark BMs today. Hemodynamically stable. Hb 9.6 this morning. Patient is on heparin gtt for SVC thrombus. Will check stat CBC. Bedside report was completed including the discussion of the following, if applicable: Electronic Medical Record Review Deterioration Index (DI) Score Physician orders - active & held orders MAR - overdue & held meds Infusing medications/fluids HAND OFF COMPLETED IN [facility] Peripheral IVs IV dressing clean, dry, and intact IV tubing changed less than 96 hours IV tubing dated, initialed, labeled IV changed less than equal to 96 hours Central Lines CHG bath completed and documented daily Dressing present and correctly positioned The central line catheter is secured to the patient's body Central line dressing is clean, dry and intact Line necessity reviewed All hubs on the central line have a swab cap Urinary Catheters Red seal is intact Tubing is free of dependent loops and without standing urine Urine collection bag is below the bladder Catheter tubing is secured to the patient's body to prevent urethral tension No components of the urinary catheter system are touching the floor Catheter necessity reviewed Skin Integrity Turning schedule and last turned Dressings clean, dry, and intact Skin Assessment completed - skin integrity, any findings? Falls Fall risk score Intervention Bundle (check all in place) Door sign Bed/Chair Alarm on Fall Risk band Non-skid socks Patient centered interventions NG/OG Tube intact and functioning as ordered Tubing dated, initialed, labeled Tube feed solution as ordered TELE Leads connected Tele Box on and working appropriately Verified by note author and SHON Harmon. Problem: Actual or potential alteration in health Goal: Absence of healthcare acquired conditions Outcome: Partially Met Goal: Knowledge of Interdisciplinary Plan of Care Outcome: Partially Met Goal: Knowledge of Enviroment Outcome: Partially Met Problem: Pain Goal: Reduced pain sensation Outcome: Partially Met Goal: Control of acute pain to acceptable level Outcome: Partially Met Goal: Able to cope with pain Outcome: Partially Met Goal: Able to achieve maximum level of physical functioning Outcome: Partially Met Goal: Able to achieve maximum level of psychosocial functioning Outcome: Partially Met Problem: Pressure Injury, Risk of Goal: Absence of pressure injury Outcome: Partially Met Problem: Falls, Risk of Goal: Absence of falls Outcome: Partially Met Goal: Absence of physical injury Outcome: Partially Met Bedside report was completed including the discussion of the following, if applicable: Electronic Medical Record Review Deterioration Index (DI) Score Physician orders - active & held orders MAR - overdue & held meds Infusing medications/fluids HAND OFF COMPLETED IN [facility] Peripheral IVs IV dressing clean, dry, and intact IV tubing changed less than 96 hours IV tubing dated, initialed, labeled IV changed less than equal to 96 hours Central Lines CHG bath completed and documented daily Dressing present and correctly positioned The central line catheter is secured to the patient's body Central line dressing is clean, dry and intact Line necessity reviewed All hubs on the central line have a swab cap Urinary Catheters Red seal is intact Tubing is free of dependent loops and without standing urine Urine collection bag is below the bladder Catheter tubing is secured to the patient's body to prevent urethral tension No components of the urinary catheter system are touching the floor Catheter necessity reviewed Skin Integrity Turning schedule and last turned Dressings clean, dry, and intact Skin Assessment completed - skin integrity, any findings? Falls Fall risk score Intervention Bundle (check all in place) Door sign Bed/Chair Alarm on Fall Risk band Non-skid socks Patient centered interventions NG/OG Tube intact and functioning as ordered Tubing dated, initialed, labeled Tube feed solution as ordered TELE Leads connected Tele Box on and working appropriately Verified by note author and Mario RN. Problem: Actual or potential alteration in health Goal: Absence of healthcare acquired conditions Outcome: Partially Met Goal: Knowledge of Interdisciplinary Plan of Care Outcome: Partially Met Goal: Knowledge of Enviroment Outcome: Partially Met Problem: Pain Goal: Reduced pain sensation Outcome: Partially Met Goal: Control of acute pain to acceptable level Outcome: Partially Met Goal: Able to cope with pain Outcome: Partially Met Goal: Able to achieve maximum level of physical functioning Outcome: Partially Met Goal: Able to achieve maximum level of psychosocial functioning Outcome: Partially Met Problem: Pressure Injury, Risk of Goal: Absence of pressure injury Outcome: Partially Met Problem: Falls, Risk of Goal: Absence of falls Outcome: Partially Met Goal: Absence of physical injury Outcome: Partially Met Problem: Restraint Use, Nonviolent/Ntc-Tbnm-Ysgumzsbmxk Behavior Goal: Absence of restraint indications Outcome: Partially Met Goal: Absence of restraint-related injury Outcome: Partially Met Palliative followed peripherally today. We have prior spoke with patient's surrogate/ Jonny to share review of medical issues and prognostic concerns. Encourage all involved teams to share updates with Jonny as goals of care discussion are ongoing. Chart review shows further MRI investigation being considered, appreciate ID expertise. Palliative will return during routine rounding during week. Clarita Aguilar DO Palliative Medicine Physician Cell: see hospital directory or treatment team Bedside report was completed including the discussion of the following, if applicable: Electronic Medical Record Review Deterioration Index (DI) Score Physician orders - active & held orders MAR - overdue & held meds Infusing medications/fluids HAND OFF COMPLETED IN [facility] Peripheral IVs IV dressing clean, dry, and intact IV tubing changed less than 96 hours IV tubing dated, initialed, labeled IV changed less than equal to 96 hours Central Lines CHG bath completed and documented daily Dressing present and correctly positioned The central line catheter is secured to the patient's body Central line dressing is clean, dry and intact Line necessity reviewed All hubs on the central line have a swab cap Urinary Catheters Red seal is intact Tubing is free of dependent loops and without standing urine Urine collection bag is below the bladder Catheter tubing is secured to the patient's body to prevent urethral tension No components of the urinary catheter system are touching the floor Catheter necessity reviewed Skin Integrity Turning schedule and last turned Dressings clean, dry, and intact Skin Assessment completed - skin integrity, any findings? Falls Fall risk score Intervention Bundle (check all in place) Door sign Bed/Chair Alarm on Fall Risk band Non-skid socks Patient centered interventions NG/OG Tube intact and functioning as ordered Tubing dated, initialed, labeled Tube feed solution as ordered TELE Leads connected Tele Box on and working appropriately Verified by note author and Mario RN. Problem: Actual or potential alteration in health Goal: Absence of healthcare acquired conditions Outcome: Partially Met Goal: Knowledge of Interdisciplinary Plan of Care Outcome: Partially Met Goal: Knowledge of Enviroment Outcome: Partially Met Problem: Pain Goal: Reduced pain sensation Outcome: Partially Met Goal: Control of acute pain to acceptable level Outcome: Partially Met Goal: Able to cope with pain Outcome: Partially Met Goal: Able to achieve maximum level of physical functioning Outcome: Partially Met Goal: Able to achieve maximum level of psychosocial functioning Outcome: Partially Met Problem: Pressure Injury, Risk of Goal: Absence of pressure injury Outcome: Partially Met Problem: Falls, Risk of Goal: Absence of falls Outcome: Partially Met Goal: Absence of physical injury Outcome: Partially Met Problem: Restraint Use, Nonviolent/Rlm-Btpl-Egdbzoeonzt Behavior Goal: Absence of restraint indications Outcome: Partially Met Goal: Absence of restraint-related injury Outcome: Partially Met Bedside report was completed including the discussion of the following, if applicable: Electronic Medical Record Review Deterioration Index (DI) Score Physician orders - active & held orders JAN - overdue & held meds Infusing medications/fluids HAND OFF COMPLETED IN [facility] Peripheral IVs IV dressing clean, dry, and intact IV tubing changed less than 96 hours IV tubing dated, initialed, labeled IV changed less than equal to 96 hours Central Lines CHG bath completed and documented daily Dressing present and correctly positioned The central line catheter is secured to the patient's body Central line dressing is clean, dry and intact Line necessity reviewed All hubs on the central line have a swab cap Urinary Catheters Red seal is intact Tubing is free of dependent loops and without standing urine Urine collection bag is below the bladder Catheter tubing is secured to the patient's body to prevent urethral tension No components of the urinary catheter system are touching the floor Catheter necessity reviewed Skin Integrity Turning schedule and last turned Dressings clean, dry, and intact Skin Assessment completed - skin integrity, any findings? Falls Fall risk score Intervention Bundle (check all in place) Door sign Bed/Chair Alarm on Fall Risk band Non-skid socks Patient centered interventions NG/OG Tube intact and functioning as ordered Tubing dated, initialed, labeled Tube feed solution as ordered TELE Leads connected Tele Box on and working appropriately Verified by note author and SHON Maza. Problem: Actual or potential alteration in health Goal: Absence of healthcare acquired conditions Outcome: Not Met Goal: Knowledge of Interdisciplinary Plan of Care Outcome: Not Met Goal: Knowledge of Enviroment Outcome: Not Met Problem: Pain Goal: Reduced pain sensation Outcome: Partially Met Goal: Able to cope with pain Outcome: Partially Met Bedside report was completed including the discussion of the following, if applicable: Electronic Medical Record Review Deterioration Index (DI) Score Physician orders - active & held orders [facility] - overdue & held meds Infusing medications/fluids HAND OFF COMPLETED IN [facility] Peripheral IVs IV dressing clean, dry, and intact IV tubing changed less than 96 hours IV tubing dated, initialed, labeled IV changed less than equal to 96 hours Central Lines CHG bath completed and documented daily Dressing present and correctly positioned The central line catheter is secured to the patient's body Central line dressing is clean, dry and intact Line necessity reviewed All hubs on the central line have a swab cap Urinary Catheters Red seal is intact Tubing is free of dependent loops and without standing urine Urine collection bag is below the bladder Catheter tubing is secured to the patient's body to prevent urethral tension No components of the urinary catheter system are touching the floor Catheter necessity reviewed Skin Integrity Turning schedule and last turned Dressings clean, dry, and intact Skin Assessment completed - skin integrity, any findings? Falls Fall risk score Intervention Bundle (check all in place) Door sign Bed/Chair Alarm on Fall Risk band Non-skid socks Patient centered interventions NG/OG Tube intact and functioning as ordered Tubing dated, initialed, labeled Tube feed solution as ordered TELE Leads connected Tele Box on and working appropriately Verified by note author and , Azra MENENDEZ. Problem: Falls, Risk of Goal: Absence of falls Outcome: Met Problem: Actual or potential alteration in health Goal: Knowledge of Interdisciplinary Plan of Care Outcome: Not Met Goal: Knowledge of Enviroment Outcome: Not Met Problem: Actual or potential alteration in health Goal: Absence of healthcare acquired conditions Outcome: Partially Met Problem: Pain Goal: Reduced pain sensation Outcome: Partially Met Problem: Pressure Injury, Risk of Goal: Absence of pressure injury Outcome: Partially Met Critical Care Sign Off Note Date of admit: 06/28/2025 Transfer Level of Care: Telemetry Perpetual Assessment Misael Medina is a 75 y.o. female with a past medical history of HFrEF, ESRD, DMII, HTN, HLD, morbid obesity who initially presented to [facility] on 06/25/25 after suffering a mechanical fall with LOC. Her course was complicated by respiratory failure requiring intubation on 06/25/25, MRSA bacteremia requiring HD line removal, and symptomatic bradycardia. She was transferred to [facility] CICU for management of cardiogenic and septic shock. Resume iHD 06/30. Transition to [facility] 07/01 for ongoing fluid removal. Extubated 07/02. Active diagnoses include acute hypoxic respiratory failure, HFrEF, MRSA bacteremia with SVC thrombus/mass, ESRD, encephalopathy. Critical Care Transfer Checklist Hospitalist Consult Placed: yes; [facility] Inter[facility] Needing Followup: None Active Consultants Following: infectious disease; Recommendations needing follow up: continuing Teflaro, Daptomycin; duration to be determined by clearance of cultures Medication Reconciliation Reviewed: Yes New medication started: No Discharge Plan: residential facility Barriers to Discharge: medical stability; specifically ABX duration CCR[facility] Indication: not indicated at this time Referral Placed: no, not indicated Delirium: CAM-ICU positive (delirium) HOBBER consulted yes/no: yes Restraints: N/A Bowel Regimen: Senna-Docusate and Last BM 07/02 Prophylaxis: DVT: Heparin infusion, (A Fib) Lines/Tubes: Right Radial A-line (placed 06/30), Left femoral HD line (placed 06/30) No tubes Antibiotics: Ceftaroline, Daptomycin, Indication (MRSA bacteremia), and End Date (TBD) Mobility goal: PT/OT consult Nutrition: Dietitian consulted Blood Glucose: Sliding scale insulin Sleep Hygiene: PRN Melatonin Code Status: Full Code Family Update: and daughter updated bedside 07/03 PHYSICAL THERAPY VISIT VARIANCE NOTE Attempted to see patient at this time, but unable secondary to: Awaiting Medical Clearance (comment) (Hold per RN, pt with bilateral femoral sheaths). Will follow up as appropriate. Problem: Restraint Use, Nonviolent/Bej-Mrlr-Ckdcmyxlmth Behavior Goal: Absence of restraint-related injury Outcome: Met Problem: Restraint Use, Nonviolent/Fbu-Lutc-Xcbwwgvpaga Behavior Goal: Absence of restraint indications Outcome: Not Met Problem: Restraint Use, Nonviolent/Pss-Nitu-Cmfoxapdvbt Behavior Goal: Absence of restraint indications Outcome: Not Met Problem: Restraint Use, Nonviolent/Jya-Gkag-Pxftndbiggx Behavior Goal: Absence of restraint-related injury Outcome: Partially Met The patient has been evaluated by the medical team. During this time, Misael Medina was observed exhibiting the following behaviors pulling at lines and pulling at tubes. I have assessed the patient for possible contributing medical conditions and addressed them as appropriate. In addition, the medical team has attempted the less restrictive alternatives including frequent monitoring, reorientation, and PRN medications for comfort. Despite these endeavors, the patient poses a risk to her safety and I have decided to use physical restraints to minimize this risk. The medical team will continue to monitor the patient on an ongoing basis and remove these restraints as soon as it is determined to no longer be necessary. Problem: Restraint Use, Nonviolent/Qzi-Kwya-Vwqyhljfkek Behavior Goal: Absence of restraint indications Outcome: Not Met Goal: Absence of restraint-related injury Outcome: Partially Met Problem: Restraint Use, Nonviolent/Rox-Bdrj-Bmewywbpbyz Behavior Goal: Absence of restraint indications Outcome: Not Met Problem: Restraint Use, Nonviolent/Adx-Lvtu-Ezkwspqutah Behavior Goal: Absence of restraint-related injury Outcome: Partially Met Problem: Restraint Use, Nonviolent/Vkx-Owif-Sicfqlntrwx Behavior Goal: Absence of restraint indications Outcome: Not Met Goal: Absence of restraint-related injury Outcome: Partially Met Problem: Restraint Use, Nonviolent/Ryf-Rxeq-Rjungkvvxsv Behavior Goal: Absence of restraint indications Outcome: Not Met Goal: Absence of restraint-related injury Outcome: Met This is an elderly 75 yo F with multiple co-morbidities and, at this time, challenging history given medical records sent who presented to OSH after suffering mechanical fall. Intubated (etiology unclear) and found to have MRSA bacteremia possibly from old tunneled HD cath which was removed. Not on pressors. No inotropes but transferred with concern for cardiogenic shock. She arrived on isopril for sinus bradycardia, noted to be normo to hypertensive, luke warm and volume overloaded on exam. Lungs coarse but no wheeze. Abdomen NTTP and soft. POCUS of heart with EF 25-35% with mild MR, no definitive AI but suspected moderate and plethoric IVC. Of note, there is mention of an SVC thrombus from OSH and she arrived on heparin - we do not have a report of this however. We have continued her on broad antibiotics, re-cultured, consulted ID. We have also stopped the isopril and opted for dobutamine for now as our chronotrope of choice with some inotropic effect given down EF until we have further information. Her lactate is clear and her exam is not c/w cardiogenic shock at this time pending further information. We will attempt to upload images from OSH where it was noted she had a DESTIN but this is yet confirmed. Will provide further information as we gather. Nephrology consult in the AM. Will determine HD catheter needs dependent on SVC thrombus or not - continue heparin for now. I spent 35 minutes in the intensive care unit providing critical care services to Misael Medina today independent of procedures and other care providers. My time managing this critically ill patient included review of interval history, laboratories, radiology and consultation reports; performing a physical examination; discussing the patient with the multi-disciplinary team and managing life sustaining therapies to prevent imminent clinical deterioration, including respiratory failure requiring mechanical ventilation. Time spent was independent of time required for procedures. Princess Dugan MD Critical Care Medicine Misael Medina has a valid Health Care Power of Holistic Specialist: yes The HCPOA is on file: Yes HCPOA 1 is Jamaal Chicas () NCPOA 2 is Chayo Chicas (son) Discussed code status with family at the bedside on arrival to the [facility] CICU. Misael is a full code at this time. Family notes that she would not want to be kept alive on machines however. Mackenzie MORRIS Please message via [employer] Cell phone # under treatment team Misael Medina arrived into my care on 06/28/2025 at 5:53 PM on continuous IV infusion(s). The isoproterenol infusion is infusing at 4mcg/min rate (61.2ml/hr) through the proximal lumen R FEM CVC access site. Admission Head to Toe Skin Assessment Use F2 to Navigate Skin intact and no visible wounds. No - Document abnormal findings, Consult Wound Care & Notify Provider Abnormal Findings: bilateral shine, L hip bruise, excoriation at sacrum Preventive Measures Initiated? Elevated Heels Off Bed Two Nurses completing head to toe skin assessment [id number] and [id number] Patient Belongings Patient arrives on unit with cup of rings (Please Check all pockets/accessories/bags for any and all belongings to be accounted for). Verified with second associate, [id number] documented in this encounter [facility] 07-20-2025 Hospital course Narrative Images from the original note were not included. [facility] DISCHARGE SUMMARY Misael Medina Account: [id number] Admitted: 06/28/2025 Discharge Date/Time: 07/20/25 / 12:04 PM _ Handoff to PCP PCP to address the following Will need oral Doxycycline after completion of IV Vanco Resume BB as BP allows - restarted Hydralazine 07/20/2025 Resume Farxiga when ok with Nephrology Clinical Summary Misael Medina is a 75 year old female with a history of HFrEF, ESRD who presented to [facility] on 06/25/25 after suffering a mechanical fall with loss of consciousness. Her course was complicated by respiratory failure requiring intubation on 06/25/25, MRSA bacteremia requiring HD line removal, and symptomatic bradycardia. Patient transferred to [facility] 06/28/25 for management of cardiogenic and septic shock. Resumed iHD 06/30/25. Extubated 07/02/25. Found to also have lumbar osteomyelitis. Improved, discharged to SNF with IV Vanco with HD. MRSA Bacteremia: persistent MRSA bacteremia 06/25/25-06/27/25 per OSH records, HD catheter removed 06/26/25 with purulence at site. DESTIN 06/29/25 with SVC thrombus, no obvious other vegetation. Blood culture 06/27/25 +MRSA. Right femoral CVC removed 07/02/25. MRI brain non acute and L-spine developing discitis osteomyelitis at the L3-L4 level. Blood culture 07/07/[address] Stewart (ID) recommended 8 weeks of IV Vancomycin with HD through 08/29/25 followed by PO suppression with Doxycycline. Multifactorial Shock: multifactorial, but primarily distributive/septic shock from MRSA bacteremia, in patient with known heart failure. Required pressor support on admission. Dobutamine weaned off 07/01/25, vasopressors off 07/02/25. Antibiotics as mentioned. Improved. Discitis/Osteomyelitis: seen on MRI L spine 07/07/25. Neurosurgery deemed pt poor surgical candidate, recommended medical management at this time. Continued on IV antibiotics. ESRD: s/p CRRT, transitioned to iHD. Perm cath placement by [facility] 07/11/25. Nephrology followed for hemodialysis. Acute on Chronic HFrEF: with baseline EF of 35%, down to 20% here in setting of stress/shock state. Held all home GDMT given borderline blood pressures. Volume management with HD. Resumed Hydralazine. Resume BB as BP allows. Resume Farxiga when ok with Nephrology Acute Hypoxic Respiratory Failure: in setting of shock and volume overload. Required intubation 06/25/25. CXR (06/29/25) with pulmonary edema with bilateral effusions. Extubated 07/03/25. Volume management with HD. O2 weaned off. Fourth Metatarsal Wound: s/p XR L foot 07/02/25 with large superficial subcutaneous wound involving the heel with subcutaneous edematous changes about the distal calf, ankle and foot. Wound care. Right Hip Pain: X-ray right hip 07/10/25 non acute. ID recommended consulting Ortho who recommended CT Hip 07/13/25, no infection/effusion. Ortho followed. Oxycodone, Lidocaine patch and Robaxin prn. Pain improved SVC Thrombus: noted on DESTIN 06/29/25 0.2 x 2.7cm mobile mass attached to the SVC wall. No vegetations. Per ID, repeat echo after completion of antibiotics. Heparin drip transitioned to renally dosed Eliquis on 07/15/25. Acute Metabolic Encephalopathy: in the setting of infection. CT Head (06/30/25) with hypodensities bilateral cerebellar hemispheres. MRI brain 07/07/25 non acute. Resolved T2DM: A1c 6.6 on 06/28/25. Metformin stopped given ESRD. SSI Anxiety/Depression: Continued home Remeron and Seroquel. Class 2 Obesity: BMI 37. Lifestyle modifications. Code status: Full -- Palliative team followed regarding goals of care, pt and family wanted to continue disease directed care, full code, signed off Pt had HD early this am, 5 am, did not eat prior. When she came back, sugars in 60s, asymptomatic. Ate breakfast, improved Discussed with Dr Stewart and pharmacy, gave another dose of Vanco today since next HD won't be until wednesday and she had already gone down for HD. Vanco running in room General: NAD Eyes: Sclera clear ENT: Neck supple. Cardiovascular: Regular rate, murmur Respiratory: Clear to auscultation Gastrointestinal: Soft, nondistended, nontender. Positive bowel sounds Genitourinary: No suprapubic tenderness Musculoskeletal: R great toe amputated Skin: Warm, dry. Scattered bruises/wounds to BLE Neuro: awake, alert. Generalized weakness. Psych: Calm and cooperative Discharge Medications Discharge Medications PAUSE taking these medications Details carvediloL 6.25 MG tablet Wait to take this until your doctor or other care provider tells you to start again. Commonly known as: COREG Take 1 (one) tablet (6.25 mg total) by mouth 2 (two) times a day . Farxiga 10 mg tablet Wait to take this until your doctor or other care provider tells you to start again. Generic drug: dapagliflozin propanediol Take 1 (one) tablet (10 mg total) by mouth every morning . New Medications Details apixaban 2.5 mg Tab Commonly known as: ELIQUIS Take 1 (one) tablet (2.5 mg total) by mouth 2 (two) times a day . Quantity: 60 tablet * lidocaine 4 % patch Start taking on: July 21, 2025 Place 1 (one) patch on the skin daily Apply to right hip Start: 07/21/25. Quantity: 30 patch * lidocaine 4 % patch Start taking on: July 21, [address]25 Place 2 (two) patches on the skin daily Apply to lower back Start: 07/21/25. Quantity: 60 patch MAGIC MOUTHWASH ORAL SUSPENSION (CMP) Swish and spit 30 mL every 4 (four) hours as needed (for mouth irritaion) . Quantity: 100 mL melatonin 5 mg Tab Take 1 (one) tablet (5 mg total) by mouth nightly . Quantity: 30 tablet methocarbamoL 500 MG tablet Commonly known as: ROBAXIN Take 1 (one) tablet (500 mg total) by mouth 3 (three) times a day as needed for muscle spasms . Quantity: 30 tablet mirtazapine 7.5 MG tablet Commonly known as: REMERON Take 1 (one) tablet (7.5 mg total) by mouth nightly . Quantity: 30 tablet oxyCODONE 5 MG immediate release tablet Commonly known as: ROXICODONE Take 1 (one) tablet (5 mg total) by mouth every 6 (six) hours as needed (Days supply per fill: 3) . Quantity: 12 tablet QUEtiapine 25 MG tablet Commonly known as: SEROQUEL Take 1 (one) tablet (25 mg total) by mouth nightly . Quantity: 30 tablet * There are duplicate medications prescribed to the patient Modified Medications Details hydrALAZINE 10 MG tablet Commonly known as: APRESOLINE What changed: medication strength how much to take additional instructions Take 1 (one) tablet (10 mg total) by mouth 3 (three) times a day Hold for SBP less than 110 . Quantity: 90 tablet Medications To Continue Details acetaminophen 325 MG tablet Commonly known as: TYLENOL Take 650 mg by mouth. atorvastatin 10 MG tablet Commonly known as: LIPITOR ergocalciferol 1,250 mcg (50,000 unit) capsule Commonly known as: ERGOCALCIFEROL Take 1 (one) capsule (50,000 Units total) by mouth once a week . ipratropium 42 mcg (0.06 %) nasal spray Commonly known as: ATROVENT Instill 2 (two) sprays into each nostril 3 (three) times a day as needed for rhinitis . multivitamin per tablet Take 1 tablet by mouth daily. Synthroid 112 MCG tablet Generic drug: levothyroxine Take 1 (one) tablet (112 mcg total) by mouth once daily . Stopped Medications amLODIPine 10 MG tablet Commonly known as: NORVASC furosemide 40 MG tablet Commonly known as: LASIX isosorbide dinitrate 20 MG tablet Commonly known as: ISORDIL metFORMIN 500 MG tablet Commonly known as: GLUCOPHAGE Physician(s) Family: Donal Will MD, , Address: [address] / [facility] [address] Follow Up: [facility] Address: [address] [place] [id number] Servicing Counties: [phone] Madhu Cai MD [address] [facility] [address] [id number] Follow up As needed Additional Information: Patient seen and examined day of discharge. For more information regarding patient's care, including complete radiology reports, please contact [facility] at Patient instructions, including activity, were given to the patient/family at discharge. Please see the After Visit Summary in the medical record for details. Time spent on discharge: > 30 minutes Completed by: Aly Abrams DO on 07/20/25, 12:04 PM documented in this encounter [facility] 07-20-2025 History of Present illness Narrative PHARMACOTHERAPY NOTE: Antimicrobial Therapy Follow-up Assessment / Plan: Misael Medina is a 75 y.o. female on Vancomycin for bacteremia. This patient is being dosed intermittently or targeting trough goals due to need for renal replacement therapy. Vancomycin goal pre-dialysis level is 18-24 mcg/mL. Based on pre-hemodialysis serum concentration of 19.1 mcg/ml, will expect concentration to fall below the goal range after HD and will give a supplemental dose of 7.5mg/kg = 750 mg today after HD. (750 mg = ~9 mg/kg) Pharmacy will continue to follow, monitor serum creatinine levels and urine output (if available) daily, order levels, and make adjustments as clinically appropriate. Please call pharmacy with questions. Therapeutic Drug Monitoring: Date Serum Concentration (mcg/ml) Dose 07/16 18.6 750 mg 07/18 21.1 750 mg 07/20 19.1 750 mg Subjective/Objective: Ht Readings from Last 1 Encounters: 06/28/25 5' (152.4 cm) Wt Readings from Last 1 Encounters: 07/20/25 83.8 kg (184 lb 11.9 oz) [place] body weight: 45.5 kg (100 lb 4.9 oz) Adjusted ideal body weight: 60.8 kg (134 lb 1.3 oz) Labs include: Lab Results 07/20/25422 WBC 4.52 Lab Results 07/20/25422 Creatinine 3.81* Estimated Creatinine Clearance: 9.2 mL/min (A) (by C-G formula based on SCr of 3.81 mg/dL (H)). Patient Tmax (last 24 hours): 98.3 F Pharmacist: Tara Veronica RPh,Gee Contact Number: Vocera/SecureChat Medical Transportation set up by CTS per hospital request: Date:07/20/25 Time:2:00pm Destination:[facility] [address] [place] [address] Company: [facility] ([phone]) Special needs/equipment:Oxygen 3 lpm via NC. Truck Type: Ambulance Companies called:Roundtrip Transport request received and is being scheduled, trip information will follow as soon as the time is secured. 07/20/25 0756 Post-Hemodialysis Assessment Rinseback Volume (mL) 300 mL Total Liters Processed (L/min) 58.4 L/min Dialyzer Clearance Lightly streaked Duration of Treatment (minutes) 180 minutes Hemodialysis Fluid Given mL (Intake) 0 mL Hemodialysis Fluid Removed mL (Output) 2800 mL Patient Response to Treatment pt tolerated well Post-Hemodialysis Comments net 2.5L removed Hemostatis Achieved Yes Treatment Status Completed Vital Signs Temp 97.4 F (36.3 C) Temp src Oral Heart Rate (!) 56 Heart Rate Source Monitor Pulse (!) 56 Resp 17 Resp Source Monitor BP 107/62 MAP (mmHg) 77 BP Location Left arm BP Method Automatic Patient Position Lying Hemodialysis Central Line Access Permanent catheter Right Internal jugular (IJ) Placement Date/Time: 07/11/25 0953 Inserted by: Natalia Gonzalez Site Prep: Chlorhexidine Site Prep Agent has Completely Dried Before Drape Applied: Yes Local Anesthetic: Injectable Dialysis Catheter Type: Tunneled Access Type: Permanent catheter ... Site Assessment Clean;Intact;Dry Arterial Line Status Clamped;Deaccessed;Flushed;Patent Venous Line Status Deaccessed;Clamped;Flushed;Patent Dressing Intervention (dated 9/3) Dressing Status Clean;Intact Dressing Change Due 07/25/25 Line Intervention Flushed;Alcohol cap Site Condition No complications Dressing CHG patch (chlorhexidine);Occlusive Report given to primary nurse Date: 07/20/2025 Time: 7:42 AM Patient Name: Misael Medina Date of : 1950 Discharge Disposition Update: Patient to discharge to [facility]. Facility has a bed available. Transportation requested through the CTS. Physician update, patient currently off unit. Addendum 0930: Transportation scheduled for today at 2:00 PM. Physician, bedside nurse, facility ([facility]) and spouse updated. Patient updated at bedside by bedside nurse. Addendum 1200: Discharge bundle faxed to facility. D/C Disposition: [facility] Facility Final D/C Agency/Destination: ([facility]) Plan A: [facility] Facility Plan B: Home Health Care Services Transportation: Transportation Type: Ambulance Discharge Disposition: HENS/PAS: ALICIA Regulatory Documentation: Regulatory Documentation: Medicare IM Regulatory Documentation Status: Certified Patient Paper Copy: Patient received paper copy NEPHROLOGY PROGRESS NOTE [facility] Patient Name: Misael Medina MR#: [id number] : 1950 Admit Date: [id number] Physicians: Donal Will MD (Family); Saeed Zelaya MD (Referring) Attending: Physicians, [facility]* Reason for Consultation/History of Present Illness Patient is a 75yo female with history of JOSUE on CKD III secondary to ATN requiring HD, HFrEF, HTN, Type II DM, hypothyroidism, and morbid obesity. She initially presented to [facility] on 06/25/25 after a mechanical fall with LOC. Her course was complicated by acute respiratory failure requiring intubation (06/25) and MRSA bacteremia requiring perm cath removal for line holiday, and bradycardia. She was transferred to [facility] 06/28/25 for further management We are asked to manage dialysis. Assessment and Plan: 1) JOSUE on CKD III-->likely now ESRD -Started HD in March 2025 -Bx proven ATN (unclear circumstances) -TTS at [facility] with Dr. Carolyn Little chest perm cath removed BL[facility]OOKER (06/26) d/t MRSA bacteremia; replaced 07/11 -Unclear last HD BLIND HOOKER -EDW 96.3kg -[facility] 07/01-07/03; transitioned to iHD 07/06 -Continue MWF schedule for placement, UF as tolerated 2) Acute hypoxemic respiratory failure, improved -Intubated at OSH BLIND HOOKER; extubated 03/03 -CXR on admission with small bilateral effusions, mild vascular congestion -Volume removal with ELEVATOR CONSTRUCTOR; stopped Lasix 07/08 d/t poor recent UO -Further care per primary 3) MRSA bacteremia -Blood cx positive at OSH; thought secondary to perm cath (now removed); repeat cx positive x2 06/29 and again 07/02. 07/04 and 07/07 cx negative -DESTIN 06/29 with EF 20-25%, mod-severely reduced RV function, mild-mod , mod MR, no pericardial effusion, 0.5 x 2.7 cm mobile mass appears to be attached to the wall of the SVC 2cm from RA interface -MRI brain non-acute, but lumbar MRI with likely developing discitis osteomyelitis at the L3-L4 level with associated epidural phlegmon extending superiorly and inferiorly from the disc space resulting in at least moderate spinal canal stenosis at this level. 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 -OK for calcium replacement per ERP 6) Anemia of CKD - Initially held SHANTI; since resumed with HD for goal Hgb 10-11 -Transfuse PRN 7) Acute metabolic encephalopathy, improved -In setting of infection/sedatives -CT head limited d/t dental hardware/motion degredation -Bacteremia tx as above -Fluid removal with ELEVATOR CONSTRUCTOR 8) Hyponatremia, mild -Adjusting UF/Na bath with HD 9) SVC thrombus, Acute RIJ thrombus -Noted on DESTIN as above -On Eliquis 10) HTN -Hydralazine resumed 07/03; continue with hold parameters -UF as able with HD Following Planning SNF with onsite HD on discharge OK to discharge from our perspective Will discuss with Dr. Vernon Subjective Seen on HD Sleeping, appears comfortable BP 113/53, Qb 350, UF goal increased to 2.5L as she was in A profile Objective Vitals: BP (!) 119/55 (Patient Position: Lying) Pulse (!) 51 Temp 98.2 F (36.8 C) (Oral) Resp 15 Ht 5' Wt 83.7 kg (184 lb 8.4 oz) SpO2 96% BMI 36.04 kg/m Intake/Output last 3 shifts: Intake/Output Summary (Last 24 hours) at 07/20/2025 0555 Last data filed at 07/19/2025 1017 Gross per 24 hour Intake 120 ml Output -- Net 120 ml I/O last 3 completed shifts: In: 660 [P.O.:360; Other:300] Out: 1800 [Other:1800] Wt Readings from Last 3 Encounters: 07/19/25 83.7 kg (184 lb 8.4 oz) 05/31/17 122 kg (269 lb) Physical Examination: General: Chronically ill-appearing elderly female. NAD Neuro: Sleeping. No myoclonus. Cardiac: Regular rate, +murmur Pulmonary: unlabored on NC Skin: No rashes/lesions on exposed skin Extremities: Minimal LE edema Access: R chest perm cath with dressing in place Results/Medications Reviewed: 07/20/25 5:55 AM: Laboratory, Microbiology, Pathology, Radiology, Cardiology, Medications and Transcriptions Scheduled Meds: apixaban 2.5 mg Oral BID atorvastatin 10 mg Oral Nightly famotidine 20 mg Oral Nightly [Held by provider] hydrALAZINE 10 mg Oral Q8H YOLI lispro insulin 0-15 Units Subcutaneous at bedtime insulin lispro 0-30 Units Subcutaneous TID AC levothyroxine 112 mcg Oral Daily lidocaine 1 patch Transdermal Daily lidocaine 2 patch Transdermal Daily melatonin 5 mg Oral Nightly mirtazapine 7.5 mg Oral Nightly QUEtiapine 25 mg Oral Nightly senna-docusate 1 tablet Oral BID sodium chloride (PF) 10 mL Intracatheter Q8H YOLI sodium chloride (PF) 5 mL Intravenous Q8H YOLI vancomycin per pharmacy 1 each Intravenous as indicated by pharmacokinetics Laboratory: Results from last 7 days Lab Units 07/20/25 0423 07/19/25 1507 07/18/25 0509 WBC K/mcL 4.52 4.97 4.43* HGB g/dL 8.5* 8.7* 8.5* HCT % 27.4* 28.5* 28.0* PLT K/mcL 271 241 219 Results from last 7 days Lab Units 07/20/25 0423 07/19/25 1507 07/18/25 0509 SODIUM mmol/L 134* 136 137 POTASSIUM mmol/L 4.1 4.7 4.3 CHLORIDE mmol/L 98 98 100 BICARB mmol/L 28 28 31 BUN mg/dL 37* 31* 28* CREATININE mg/dL 3.81* 3.74* 4.11* EGFR mL/min/1.73 m2 12* 12* 11* GLUCOSE mg/dL 90 110* 74 CALCIUM mg/dL 8.0* 8.5 8.1* PHOSPHORUS mg/dL 3.8 3.6 4.5* Adrianne Mi PA-C [facility] Please use Secure Chat to contact (If I am not signed in, please contact the covering Stopper Maker) [phone] (office, after 5pm/weekends) Date: 07/19/2025 Time: 2:16 PM Patient Name: Misael Medina Date of : 1950 Discharge Disposition Update: Patient to discharge to [facility]. Patient has obtained lisa de la cruz through 07/25/2025. Facility is checking on bed availability. D/C Disposition: [facility] Facility Final D/C Agency/Destination: ([facility]) Plan A: [facility] Facility Plan B: Home Health Care Services Transportation: Transportation Type: Ambulance Discharge Disposition: ALICIA/PAS: ALICIA Regulatory Documentation: Regulatory Documentation: Medicare IM Regulatory Documentation Status: Certified Patient Paper Copy: Patient received paper copy [facility] 07/19/2025 Misael Medina 1950 [id number] Assessment/Plan: Misael Medina is a 75 year old female with a history of HFrEF, ESRD who presented to [facility] on 06/25/25 after suffering a mechanical fall with loss of consciousness. Her course was complicated by respiratory failure requiring intubation on 06/25/25, MRSA bacteremia requiring HD line removal, and symptomatic bradycardia. Patient transferred to [facility] 06/28/25 for management of cardiogenic and septic shock. Resumed iHD 06/30/25. Extubated 07/02/25. Found to also have lumbar osteomyelitis. MRSA Bacteremia: persistent MRSA bacteremia 06/25/25-06/27/25 per OSH records, HD catheter removed 06/26/25 with purulence at site. DESTIN 06/29/25 with SVC thrombus, no obvious other vegetation. Blood culture 06/27/25 +MRSA. Right femoral CVC removed 07/02/25. MRI brain non acute and L-spine developing discitis osteomyelitis at the L3-L4 level. Blood culture 07/07/25 negative. Per ID, 8 weeks of IV Vancomycin with HD through 08/29/25 followed by PO suppression with Doxycycline. Multifactorial Shock: multifactorial, but primarily distributive/septic shock from MRSA bacteremia, in patient with known heart failure. Required pressor support on admission. Dobutamine weaned off 07/01/25, vasopressors off 07/02/25. Antibiotics as mentioned. Improved. Discitis/Osteomyelitis: seen on MRI L spine 07/07/25. Neurosurgery deemed pt poor surgical candidate, recommended medical management at this time. Continued on IV antibiotics. Fourth Metatarsal Wound: s/p XR L foot 07/02/25 with large superficial subcutaneous wound involving the heel with subcutaneous edematous changes about the distal calf, ankle and foot. Wound care. Acute Hypoxic Respiratory Failure: in setting of shock and volume overload. Required intubation 06/25/25. CXR (06/29/25) with pulmonary edema with bilateral effusions. Extubated 07/03/25. Volume management with HD. O2 weaned off. Acute on Chronic HFrEF: with baseline EF of 35%, down to 20% here in setting of stress/shock state. Held all home GDMT given borderline blood pressures. Volume management with HD. ESRD: s/p CRRT, transitioned to iHD. Perm cath placement by [facility]IR 07/11/25. Nephrology following for hemodialysis. Right Hip Pain: X-ray right hip 07/10/25 non acute. ID recommended consulting Ortho who recommended CT Hip 07/13/25, no infection/effusion. Ortho followed. Oxycodone, Lidocaine patch and Robaxin prn. Pain improved SVC Thrombus: noted on DESTIN 06/29/25 0.2 x 2.7cm mobile mass attached to the SVC wall. No vegetations. Per ID, repeat echo after completion of antibiotics. Heparin drip transitioned to renally dosed Eliquis on 07/15/25. Acute Metabolic Encephalopathy: in the setting of infection. CT Head (06/30/25) with hypodensities bilateral cerebellar hemispheres. MRI brain 07/07/25 non acute. Resolved T2DM: A1c 6.6 on 06/28/25. Held home oral regimen. SSI in place. Monitor. Anxiety/Depression: Continued home Remeron and Seroquel. Class 2 Obesity: BMI 37. Lifestyle modifications. Code status: Full -- Palliative team followed regarding goals of care, pt and family wanted to continue disease directed care, full code, signed off DVT Prophylaxis: Eliquis. Medication Reconciliation: Reviewed using EMR Current living situation: Home Expected Disposition: SNF Estimated discharge date: pending SNF bed; precert approved Medically Ready for Discharge: yes Discussed with at bedside 07/09/25 Subjective: Pt with no new issues, aware precert approved and just awaiting SNF bed. Stable for discharge Physical Exam: BP 104/62 (BP Location: Left arm, Patient Position: Lying) Pulse 71 Temp 97.6 F (36.4 C) (Oral) Resp 18 Ht 5' Wt 83.7 kg (184 lb 8.4 oz) SpO2 93% BMI 36.04 kg/m General: NAD Eyes: Sclera clear ENT: Neck supple. Cardiovascular: Regular rate, murmur Respiratory: Clear to auscultation Gastrointestinal: Soft, nondistended, nontender. Positive bowel sounds Genitourinary: No suprapubic tenderness Musculoskeletal: R great toe amputated Skin: Warm, dry. Scattered bruises/wounds to BLE Neuro: awake, alert. Generalized weakness. Psych: Calm and cooperative Current Medications: apixaban 2.5 mg Oral BID atorvastatin 10 mg Oral Nightly famotidine 20 mg Oral Nightly [Held by provider] hydrALAZINE 10 mg Oral Q8H YOLI lispro insulin 0-15 Units Subcutaneous at bedtime insulin lispro 0-30 Units Subcutaneous TID AC levothyroxine 112 mcg Oral Daily lidocaine 1 patch Transdermal Daily lidocaine 2 patch Transdermal Daily melatonin 5 mg Oral Nightly mirtazapine 7.5 mg Oral Nightly QUEtiapine 25 mg Oral Nightly senna-docusate 1 tablet Oral BID sodium chloride (PF) 10 mL Intracatheter Q8H YOLI sodium chloride (PF) 5 mL Intravenous Q8H YOLI vancomycin per pharmacy 1 each Intravenous as indicated by pharmacokinetics Labs, Imaging and Studies reviewed: Results from last 7 days Lab Units 07/18/25 0509 07/17/25 0426 07/16/25 0345 WBC K/mcL 4.43* 3.84* 4.46* HGB g/dL 8.5* 8.4* 8.4* HCT % 28.0* 27.0* 25.6* PLT K/mcL 219 196 191 Results from last 7 days Lab Units 07/18/25 0509 07/17/25 0426 07/16/25 0345 SODIUM mmol/L 137 132* 135 POTASSIUM mmol/L 4.3 4.3 4.3 CHLORIDE mmol/L 100 96* 98 BICARB mmol/L 31 29 26 BUN mg/dL 28* 26* 46* CREATININE mg/dL 4.11* 3.33* 4.53* EGFR mL/min/1.73 m2 11* 14* 10* GLUCOSE mg/dL 74 72 80 CALCIUM mg/dL 8.1* 8.0* 8.7 PHOSPHORUS mg/dL 4.5* 3.2 3.9 NEPHROLOGY PROGRESS NOTE [facility] Patient Name: Misael Medina MR#: [id number] : 1950 Admit Date: [id number] Physicians: Donal Will MD (Family); Saeed Zelaya MD (Referring) Attending: Physicians, [facility]* Reason for Consultation/History of Present Illness Patient is a 75yo female with history of JOSUE on CKD III secondary to ATN requiring HD, HFrEF, HTN, Type II DM, hypothyroidism, and morbid obesity. She initially presented to [facility] on 06/25/25 after a mechanical fall with LOC. Her course was complicated by acute respiratory failure requiring intubation (06/25) and MRSA bacteremia requiring perm cath removal for line holiday, and bradycardia. She was transferred to [facility] 06/28/25 for further management We are asked to manage dialysis. Assessment and Plan: 1) JOSUE on CKD III-->likely now ESRD -Started HD in March 2025 -Bx proven ATN (unclear circumstances) -TTS at [facility] with Dr. Carolyn Little chest perm cath removed BLIND HOOKER (06/26) d/t MRSA bacteremia; replaced 07/11 -Unclear last HD BLIND [facility]OOKER -EDW 96.3kg -[facility] 07/01-07/03; transitioned to iHD 07/06 -Continue MWF schedule for placement, UF as tolerated 2) Acute hypoxemic respiratory failure, improved -Intubated at OSH BLIND [facility]OOKER; extubated 03/03 -CXR on admission with small bilateral effusions, mild vascular congestion -Volume removal with ELEVATOR CONSTRUCTOR; stopped Lasix 07/08 d/t poor recent UO -Further care per primary 3) MRSA bacteremia -Blood cx positive at OSH; thought secondary to perm cath (now removed); repeat cx positive x2 06/29 and again 07/02. 07/04 and 07/07 cx negative -DESTIN 06/29 with EF 20-25%, mod-severely reduced RV function, mild-mod , mod MR, no pericardial effusion, 0.5 x 2.7 cm mobile mass appears to be attached to the wall of the SVC 2cm from RA interface -MRI brain non-acute, but lumbar MRI with likely developing discitis osteomyelitis at the L3-L4 level with associated epidural phlegmon extending superiorly and inferiorly from the disc space resulting in at least moderate spinal canal stenosis at this level. 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 -OK for calcium replacement per ERP 6) Anemia of CKD - Initially held SHANTI; since resumed with HD for goal Hgb 10-11 -Transfuse PRN 7) Acute metabolic encephalopathy, improved -In setting of infection/sedatives -CT head limited d/t dental hardware/motion degredation -Bacteremia tx as above -Fluid removal with ELEVATOR CONSTRUCTOR 8) Hypernatremia, resolved -Previously hyponatremic -Lasix discontinued as above -Adjusting UF/Na bath with HD 9) SVC thrombus, Acute RIJ thrombus -Noted on DESTIN as above -On Eliquis 10) HTN -Hydralazine resumed 07/03; held 07/14 d/t soft BP -UF as able with HD Following Planning SNF with onsite HD on discharge Will discuss with Dr. Vernon Subjective Seen and examined in her room She awoke easily to voice, denied complaints Discussed plan for HD tomorrow; she denied questions/concerns Objective Vitals: BP 99/61 (BP Location: Right arm, Patient Position: Lying) Pulse 70 Temp 98.3 F (36.8 C) (Oral) Resp 17 Ht 5' Wt 83.7 kg (184 lb 8.4 oz) SpO2 96% BMI 36.04 kg/m Intake/Output last 3 shifts: Intake/Output Summary (Last 24 hours) at 07/19/2025 0614 Last data filed at 07/18/2025 1517 Gross per 24 hour Intake 540 ml Output 1800 ml Net -1260 ml I/O last 3 completed shifts: In: 780 [P.O.:480; Other:300] Out: 1800 [Other:1800] Wt Readings from Last 3 Encounters: 07/19/25 83.7 kg (184 lb 8.4 oz) 05/31/17 122 kg (269 lb) Physical Examination: General: Chronically ill-appearing elderly female. NAD Neuro: Awake, conversant. No myoclonus. Cardiac: Regular rate, +murmur Pulmonary: unlabored on RA; NC on neck Skin: No rashes/lesions on exposed skin Extremities: Minimal LE edema Access: R chest perm cath with dressing in place Results/Medications Reviewed: 07/19/25 6:14 AM: Laboratory, Microbiology, Pathology, Radiology, Cardiology, Medications and Transcriptions Scheduled Meds: apixaban 2.5 mg Oral BID atorvastatin 10 mg Oral Nightly famotidine 20 mg Oral Nightly [Held by provider] hydrALAZINE 10 mg Oral Q8H [facility] lispro insulin 0-15 Units Subcutaneous at bedtime insulin lispro 0-30 Units Subcutaneous TID AC levothyroxine 112 mcg Oral Daily lidocaine 1 patch Transdermal Daily lidocaine 2 patch Transdermal Daily melatonin 5 mg Oral Nightly mirtazapine 7.5 mg Oral Nightly QUEtiapine 25 mg Oral Nightly senna-docusate 1 tablet Oral BID sodium chloride (PF) 10 mL Intracatheter Q8H [facility] sodium chloride (PF) 5 mL Intravenous Q8H [facility] vancomycin per pharmacy 1 each Intravenous as indicated by pharmacokinetics Laboratory: Results from last 7 days Lab Units 07/18/25 0509 07/17/25 0426 07/16/25 0345 WBC K/mcL 4.43* 3.84* 4.46* HGB g/dL 8.5* 8.4* 8.4* HCT % 28.0* 27.0* 25.6* PLT K/mcL 219 196 191 Results from last 7 days Lab Units 07/18/25 0509 07/17/25 0426 07/16/25 0345 SODIUM mmol/L 137 132* 135 POTASSIUM mmol/L 4.3 4.3 4.3 CHLORIDE mmol/L 100 96* 98 BICARB mmol/L 31 29 26 BUN mg/dL 28* 26* 46* CREATININE mg/dL 4.11* 3.33* 4.53* EGFR mL/min/1.73 m2 11* 14* 10* GLUCOSE mg/dL 74 72 80 CALCIUM mg/dL 8.1* 8.0* 8.7 PHOSPHORUS mg/dL 4.5* 3.2 3.9 Adrianne Mi PA-C [facility] Please use Secure Chat to contact (If I am not signed in, please contact the covering Stopper Maker) [phone] (office, after 5pm/weekends) Date: 07/18/2025 Time: 7:10 PM Patient Name: Misael Medina Date of : 1950 Discharge Disposition Update: Auth approved 07/19-07/25 per [facility], cert# [id number], ICD 10: R57.0 . Message sent to SNF; pending bed availability D/C Disposition: [facility] Facility Final D/C Agency/Destination: ([facility]) Plan A: [facility] Facility Plan B: Home Health Care Services Transportation: Transportation Type: Ambulance Discharge Disposition: HENS/PAS: HENS Regulatory Documentation: Date: 07/18/2025 Time: 3:31 PM Patient Name: Misael Medina Date of : 1950 Discharge Disposition Update: Pending. Clinical leads notified to initiate [facility] precert. D/C Disposition: [facility] Facility Final D/C Agency/Destination: ([facility]) Plan A: [facility] Facility Plan B: Home Health Care Services Transportation: Transportation Type: Ambulance Discharge Disposition: HENS/PAS: HENS Regulatory Documentation: Physical Therapy PHYSICAL THERAPY TREATMENT NOTE Skilled Therapy Needs After Discharge Anticipate Resolution of Current Assessment Limitations Including: Pain, Delirium, Mechanical Barriers, Social Support Are medical doctor md/medical director Therapy Services Needed After Discharge: Yes Intensity of medical doctor md/medical director Therapy: Up to 5 days per week Anticipated Duration of medical doctor md/medical director Therapy: Duration 10 - 30 days PT DME Recommendation: To be determined at next level of care Rehab Potential: Good, For goals Outcomes Measures Prior Function - Basic Mobility Raw Score: 24 Points Prior Function - Basic Mobility % Impaired: 0% AM-PAC Basic Mobility Raw Score: 10 Points AM-PAC Basic Mobility % Impaired: 71.92% Therapy Precautions General Rehab Precautions: Fall risk Balance Sitting Balance - Static: Stand by assist, Contact guard assist Sitting Balance - Dynamic: Stand by assist, Contact guard assist Sitting Balance Treatment: weight shifting anterior, weight shifting left, weight shifting right, reaching outside base of support, reaching within base of support, maintaining midline orientation, postural re-education Skilled Intervention Provided: verbal cues, patient education For: initiation of tasks, self-monitoring during activity, sequencing of movement, trunk control, weight shifting Resulting in: improved activity tolerance, increased upright tolerance for functional tasks Standing Balance - Static: Minimal assist Outboard Motor Assembler - Standing Static: BUE Standing Balance Treatment: postural re-education, maintaining midline Skilled Intervention Provided: verbal cues, facilitation, patient education For: LE positioning, UE positioning, initiation of tasks, self-monitoring during activity, sequencing of movement, trunk control, weight shifting Resulting in: improved activity tolerance, increased upright tolerance for functional tasks Bed Mobility Rolling: Minimal assist Supine to Sit: Minimal assist Sit to Supine: Moderate assist Outboard Motor Assembler: bedrails, patient slide sheet / friction-reducing device Skilled Intervention Provided: verbal cues, facilitation, monitoring patient response with activity, provided step by step instructions, patient education For: LE management, UE positioning, initiation of task, logroll technique, necessary precautions, safe use of bedrails and/or equipment, safety during functional tasks, self-monitoring during activity, sequencing of movement, weight shifting Resulting in: improved activity tolerance, increased initiation in mobility task(s), increased participation in mobility task(s), increased upright tolerance for functional tasks Transfers Sit to Stand: Moderate assist Outboard Motor Assembler: BUE (Face to Face transfer) Additional Transfer Trial 2: Yes Sit to Stand Trial 2: Moderate assist Lateral Transfers Trial 2: Moderate assist Outboard Motor Assembler Trial 2: BUE (Face to Face transfer) Skilled Intervention Provided: verbal cues, facilitation, monitoring patient response with activity, provided step by step instructions, patient education For: LE positioning, UE positioning, initiation of task, safety during functional tasks, self-monitoring during activity, sequencing of movement, weight shifting Resulting in: improved activity tolerance, increased upright tolerance for functional tasks Home Living Obtained Home Living and PLOF info from: Patient Lives With: Spouse Type of Home: House Home Layout: Two level, Bed on main level Steps to enter home: Yes Rails to enter home: 1 rail Number of stairs to enter home: 4 Mobility Equipment: (Does not use any assistive devices) Prior Level of Function Level of [place] - Transfers/Ambulation/Mobility: Independent with functional transfers, Independent with household ambulation Level of [place] - ADLs: Independent Level of [place] - Homemaking: Independent Driving: Patient drives For complete objective data, detailed plan of care and patient education refer to: PT Evaluation flowsheet, PT Evaluation and Treatment flowsheet, PT Treatment flowsheet, patient Plan of Care, Plan of Care progress note, and Patient Education. This note stands as the current Discharge Summary upon patient discharge from the hospital or completion of Physical Therapy Plan of Care. Cosigned by Radha Luna, PT at 07/18/2025 3:01 PM EDT Pt seen today regarding her prior back pain complaints in the setting of lumbar osteomyelitis/discitis. She has remained on long-term IV antibiotics given her history of MRSA bacteremia. From a neurologic standpoint she denies any radiating leg pain, numbness, weakness, or paresthesias. She has sensation present to light touch and despite significant deconditioning, has at least 4+/5 strength in her BLE including DF/PF/KE. As such we will continue conservative management. She will have follow up with the infectious disease team regarding her long-term antibiotics and follow up imaging. [facility] Inpatient Progress Note 07/18/2025 Misael Medina 1950 [id number] Assessment/Plan: Misael Renée Medina is a 75 year old female with a history of HFrEF, ESRD who presented to [facility] on 06/25/25 after suffering a mechanical fall with loss of consciousness. Her course was complicated by respiratory failure requiring intubation on 06/25/25, MRSA bacteremia requiring HD line removal, and symptomatic bradycardia. Patient transferred to [facility] 06/28/25 for management of cardiogenic and septic shock. Resumed iHD 06/30/25. Extubated 07/02/25. Found to also have lumbar osteomyelitis. MRSA Bacteremia: persistent MRSA bacteremia 06/25/25-06/27/25 per OSH records, HD catheter removed 06/26/25 with purulence at site. DESTIN 06/29/25 with SVC thrombus, no obvious other vegetation. Blood culture 06/27/25 +MRSA. Right femoral CVC removed 07/02/25. MRI brain non acute and L-spine developing discitis osteomyelitis at the L3-L4 level. Blood culture 07/07/25 negative. Per ID, 8 weeks of IV Vancomycin with HD through 08/29/25 followed by PO suppression with Doxycycline. Multifactorial Shock: multifactorial, but primarily distributive/septic shock from MRSA bacteremia, in patient with known heart failure. Required pressor support on admission. Dobutamine weaned off 07/01/25, vasopressors off 07/02/25. Antibiotics as mentioned. Improved. Discitis/Osteomyelitis: seen on MRI L spine 07/07/25. Neurosurgery deemed pt poor surgical candidate, recommended medical management at this time. Continued on IV antibiotics. Fourth Metatarsal Wound: s/p XR L foot 07/02/25 with large superficial subcutaneous wound involving the heel with subcutaneous edematous changes about the distal calf, ankle and foot. Wound care. Acute Hypoxic Respiratory Failure: in setting of shock and volume overload. Required intubation 06/25/25. CXR (06/29/25) with pulmonary edema with bilateral effusions. Extubated 07/03/25. Volume management with HD/Lasix. O2 weaned off and tolerating room air. Acute on Chronic HFrEF: with baseline EF of 35%, down to 20% here in setting of stress/shock state. Held all home GDMT given borderline blood pressures. Continued low-dose Hydralazine and Lasix. Volume management with HD. ESRD: s/p CRRT, transitioned to iHD. Perm cath placement by DHRUV 07/11/25. Nephrology following for hemodialysis. Right Hip Pain: patient reported to ID team 07/10/25. X-ray right hip 07/10/25 non acute. ID recommended consulting Ortho while inpatient- Ortho recommended CT Hip 07/13/25, no infection/effusion. Ortho followed. Oxycodone, Lidocaine patch and Robaxin prn. Pain improved SVC Thrombus: noted on DESTIN 06/29/25 0.2 x 2.7cm mobile mass attached to the SVC wall. No vegetations. Per ID, repeat echo after completion of antibiotics. Heparin drip transitioned to renally dosed Eliquis on 07/15/25. Acute Metabolic Encephalopathy: in the setting of infection. CT Head (06/30/25) with hypodensities bilateral cerebellar hemispheres. MRI brain 07/07/25 non acute. Resolved T2DM: Held home oral regimen. SSI in place. Monitor. Anxiety/Depression: Continued home Remeron and Seroquel. Class 2 Obesity: BMI 37. Lifestyle modifications. Code status: Full -- Palliative team followed regarding goals of care, pt and family wanted to continue disease directed care, full code, signed off DVT Prophylaxis: Eliquis. Medication Reconciliation: Reviewed using EMR Current living situation: Home Expected Disposition: SNF Estimated discharge date: pending precert and transport Medically Ready for Discharge: yes Discussed with at bedside 07/09/25 Subjective: Pt felt lidocaine patch helped R hip and awaiting for new patch. No complaints. Discussed with CM, awaiting precert for SNF Physical Exam: BP 111/65 (BP Location: Left arm, Patient Position: Lying) Pulse 70 Temp 98 F (36.7 C) (Oral) Resp 18 Ht 5' Wt 82.4 kg (181 lb 10.5 oz) SpO2 95% BMI 35.48 kg/m General: NAD Eyes: Sclera clear ENT: Neck supple. Cardiovascular: Regular rate, murmur Respiratory: Clear to auscultation Gastrointestinal: Soft, nondistended, nontender. Positive bowel sounds Genitourinary: No suprapubic tenderness Musculoskeletal: R great toe amputated Skin: Warm, dry. Scattered bruises/wounds to BLE Neuro: awake, alert. Generalized weakness. Psych: Calm and cooperative Current Medications: apixaban 2.5 mg Oral BID atorvastatin 10 mg Oral Nightly famotidine 20 mg Oral Nightly [Held by provider] hydrALAZINE 10 mg Oral Q8H [facility] lispro insulin 0-15 Units Subcutaneous at bedtime insulin lispro 0-30 Units Subcutaneous TID AC levothyroxine 112 mcg Oral Daily lidocaine 1 patch Transdermal Daily lidocaine 2 patch Transdermal Daily melatonin 5 mg Oral Nightly mirtazapine 7.5 mg Oral Nightly QUEtiapine 25 mg Oral Nightly senna-docusate 1 tablet Oral BID sodium chloride (PF) 10 mL Intracatheter Q8H [facility] sodium chloride (PF) 10-20 mL Intravenous Once in dialysis sodium chloride (PF) 5 mL Intravenous Q8H [facility] vancomycin 750 mg Intravenous Once vancomycin per pharmacy 1 each Intravenous as indicated by pharmacokinetics Labs, Imaging and Studies reviewed: Results from last 7 days Lab Units 07/18/25 05007/17/2542507/16/25 0345 WBC K/mcL 4.43* 3.84* 4.46* HGB g/dL 8.5* 8.4* 8.4* HCT % 28.0* 27.0* 25.6* PLT K/mcL 219 196 191 Results from last 7 days Lab Units 07/18/25 0509 07/17/25 0426 07/16/25 0345 SODIUM mmol/L 137 132* 135 POTASSIUM mmol/L 4.3 4.3 4.3 CHLORIDE mmol/L 100 96* 98 BICARB mmol/L 31 29 26 BUN mg/dL 28* 26* 46* CREATININE mg/dL 4.11* 3.33* 4.53* EGFR mL/min/1.73 m2 11* 14* 10* GLUCOSE mg/dL 74 72 80 CALCIUM mg/dL 8.1* 8.0* 8.7 PHOSPHORUS mg/dL 4.5* 3.2 3.9 07/18/25 0809 Post-Hemodialysis Assessment Rinseback Volume (mL) 300 mL Total Liters Processed (L/min) 59.1 L/min Dialyzer Clearance Lightly streaked Duration of Treatment (minutes) 180 minutes Hemodialysis Fluid Given mL (Intake) 300 mL Hemodialysis Fluid Removed mL (Output) 1800 mL Patient Response to Treatment Tx tolerated well. VSS. Ended in profile A Post-Hemodialysis Comments Net UF 1.5L Treatment Status Completed Vital Signs Temp 98.1 F (36.7 C) Heart Rate 64 Resp 16 BP 124/66 MAP (mmHg) 77 Hemodialysis Central Line Access Permanent catheter Right Internal jugular (IJ) Placement Date/Time: 07/11/25 0953 Inserted by: Natalia Gonzalez Site Prep: Chlorhexidine Site Prep Agent has Completely Dried Before Drape Applied: Yes Local Anesthetic: Injectable Dialysis Catheter Type: Tunneled Access Type: Permanent catheter ... Site Assessment Clean;Dry;Intact Arterial Line Status Deaccessed;Flushed;Clamped Venous Line Status Deaccessed;Flushed;Clamped Dressing Intervention New dressing Dressing Status Clean;Intact;Other (comment) (dated 07/18/25) Dressing Change Due 07/25/25 Line Intervention Flushed;Alcohol cap Site Condition No complications Dressing CHG patch (chlorhexidine);Occlusive PHARMACOTHERAPY NOTE: Antimicrobial Therapy Follow-up Assessment / Plan: Misael Medina is a 75 y.o. female on Vancomycin for bacteremia. This patient is being dosed intermittently or targeting trough goals due to need for renal replacement therapy. Vancomycin goal pre-dialysis level is 18-24 mcg/mL. Based on pre-hemodialysis serum concentration of 21.1 mcg/ml, will expect concentration to fall below the goal range after HD and will give a supplemental dose of 7.5mg/kg = 750 mg today after HD. (750 mg = ~9 mg/kg) Pharmacy will continue to follow, monitor serum creatinine levels and urine output (if available) daily, order levels, and make adjustments as clinically appropriate. Please call pharmacy with questions. Therapeutic Drug Monitoring: Date Serum Concentration (mcg/ml) Dose 07/16 18.6 750 mg 07/18 21.1 750 mg Subjective/Objective: Ht Readings from Last 1 Encounters: 06/28/25 5' (152.4 cm) Wt Readings from Last 1 Encounters: 07/18/25 82.4 kg (181 lb 10.5 oz) [place] body weight: 45.5 kg (100 lb 4.9 oz) Adjusted ideal body weight: 60.3 kg (132 lb 13.6 oz) Labs include: Lab Results 07/18/25 0509 WBC 4.43* Lab Results 07/18/25 0509 Creatinine 4.11* Estimated Creatinine Clearance: 8.5 mL/min (A) (by C-G formula based on SCr of 4.11 mg/dL (H)). Patient Tmax (last 24 hours): 98.5 F Pharmacist: Melanie Coleman RPh,Gee Contact Number: Vocera/SecureChat NEPHROLOGY PROGRESS NOTE [facility] Patient Name: Misael Medina MR#: [id number] : 1950 Admit Date: [id number] Physicians: Donal Will MD (Family); Saeed Zelaya MD (Referring) Attending: Physicians, [facility]* Reason for Consultation/History of Present Illness Patient is a 75yo female with history of JOSUE on CKD III secondary to ATN requiring HD, HFrEF, HTN, Type II DM, hypothyroidism, and morbid obesity. She initially presented to [facility] on 06/25/25 after a mechanical fall with LOC. Her course was complicated by acute respiratory failure requiring intubation (06/25) and MRSA bacteremia requiring perm cath removal for line holiday, and bradycardia. She was transferred to [facility] 06/28/25 for further management We are asked to manage dialysis. Assessment and Plan: 1) JOSUE on CKD III-->likely now ESRD -Started HD in March 2025 -Bx proven ATN (unclear circumstances) -TTS at [facility] with Dr. Carolyn Little chest perm cath removed BLIND HOOKER (06/26) d/t MRSA bacteremia; replaced 07/11 -Unclear last HD BLIND HOOKER -EDW 96.3kg -[facility] 07/01-07/03; transitioned to iHD 07/06 -Continue MWF schedule for placement, UF as tolerated 2) Acute hypoxemic respiratory failure, improved -Intubated at OSH BLIND HOOKER; extubated 03/03 -CXR on admission with small bilateral effusions, mild vascular congestion -Volume removal with ELEVATOR CONSTRUCTOR; stopped Lasix 07/08 d/t poor recent UO -Further care per primary 3) MRSA bacteremia -Blood cx positive at OSH; thought secondary to perm cath (now removed); repeat cx positive x2 06/29 and again 07/02. 07/04 and 07/07 cx negative -DESTIN 06/29 with EF 20-25%, mod-severely reduced RV function, mild-mod , mod MR, no pericardial effusion, 0.5 x 2.7 cm mobile mass appears to be attached to the wall of the SVC 2cm from RA interface -MRI brain non-acute, but lumbar MRI with likely developing discitis osteomyelitis at the L3-L4 level with associated epidural phlegmon extending superiorly and inferiorly from the disc space resulting in at least moderate spinal canal stenosis at this level. 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 -OK for calcium replacement per ERP 6) Anemia of CKD - Initially held SHANTI; since resumed with HD for goal Hgb 10-11 -Transfuse PRN 7) Acute metabolic encephalopathy, improved -In setting of infection/sedatives -CT head limited d/t dental hardware/motion degredation -Bacteremia tx as above -Fluid removal with ELEVATOR CONSTRUCTOR 8) Hypernatremia, resolved -Previously hyponatremic -Lasix discontinued as above -Adjusting UF/Na bath with HD 9) SVC thrombus, Acute RIJ thrombus -Noted on DESTIN as above -On Eliquis 10) HTN -Hydralazine resumed 07/03; held 07/14 d/t soft BP -UF as able with HD Following Planning SNF with onsite HD on discharge Will discuss with Dr. Vernon Subjective Seen on HD Sleeping, appears comfortable BP 111/55, Qb 350, UF goal 1.5L No issues with treatment per RN Objective Vitals: BP (!) 110/47 (BP Location: Right arm, Patient Position: Lying) Pulse (!) 59 Temp 97.9 F (36.6 C) (Temporal) Resp 14 Ht 5' Wt 82.2 kg (181 lb 3.5 oz) SpO2 100% BMI 35.39 kg/m Intake/Output last 3 shifts: Intake/Output Summary (Last 24 hours) at 07/18/2025 0609 Last data filed at 07/17/2025 1000 Gross per 24 hour Intake 240 ml Output -- Net 240 ml I/O last 3 completed shifts: In: 1080 [P.O.:780; Other:300] Out: 1800 [Other:1800] Wt Readings from Last 3 Encounters: 07/17/25 82.2 kg (181 lb 3.5 oz) 05/31/17 122 kg (269 lb) Physical Examination: General: Chronically ill-appearing elderly female. NAD Neuro: Sleeping. No myoclonus. Cardiac: Regular rate, +murmur Pulmonary: unlabored on LFNC Skin: No rashes/lesions on exposed skin Extremities: Minimal LE edema Access: R chest perm cath with dressing in place Results/Medications Reviewed: 07/18/25 6:09 AM: Laboratory, Microbiology, Pathology, Radiology, Cardiology, Medications and Transcriptions Scheduled Meds: apixaban 2.5 mg Oral BID atorvastatin 10 mg Oral Nightly famotidine 20 mg Oral Nightly [Held by provider] hydrALAZINE 10 mg Oral Q8H [facility] lispro insulin 0-15 Units Subcutaneous at bedtime insulin lispro 0-30 Units Subcutaneous TID AC levothyroxine 112 mcg Oral Daily lidocaine 1 patch Transdermal Daily lidocaine 2 patch Transdermal Daily melatonin 5 mg Oral Nightly mirtazapine 7.5 mg Oral Nightly QUEtiapine 25 mg Oral Nightly senna-docusate 1 tablet Oral BID sodium chloride (PF) 10 mL Intracatheter Q8H [facility] sodium chloride (PF) 10-20 mL Intravenous Once in dialysis sodium chloride (PF) 5 mL Intravenous Q8H [facility] vancomycin per pharmacy 1 each Intravenous as indicated by pharmacokinetics Continuous Infusions: sodium chloride 0.9 % Laboratory: Results from last 7 days Lab Units 07/18/25 0509 07/17/25 0426 07/16/25 0345 WBC K/mcL 4.43* 3.84* 4.46* HGB g/dL 8.5* 8.4* 8.4* HCT % 28.0* 27.0* 25.6* PLT K/mcL 219 196 191 Results from last 7 days Lab Units 07/18/25 0509 07/17/25 0426 07/16/25 0345 SODIUM mmol/L 137 132* 135 POTASSIUM mmol/L 4.3 4.3 4.3 CHLORIDE mmol/L 100 96* 98 BICARB mmol/L 31 29 26 BUN mg/dL 28* 26* 46* CREATININE mg/dL 4.11* 3.33* 4.53* EGFR mL/min/1.73 m2 11* 14* 10* GLUCOSE mg/dL 74 72 80 CALCIUM mg/dL 8.1* 8.0* 8.7 PHOSPHORUS mg/dL 4.5* 3.2 3.9 Adrianne Mi PA-C [facility] Please use Secure Chat to contact (If I am not signed in, please contact the covering Stopper Maker) [phone] (office, after 5pm/weekends) Occupational Therapy OCCUPATIONAL THERAPY TREATMENT NOTE Skilled Therapy Needs After Discharge Anticipate Resolution of Current Assessment Limitations Including: Pain, Mechanical Barriers, Social Support Are OT Skilled Therapy Services Needed After Discharge: Yes Intensity of OT Skilled Therapy: Up to 5 days per week Anticipated Duration of OT Skilled Therapy: Duration 10 - 30 days OT DME Recommendation: To be determined at next level of care Rehab Potential: Good, For goals Outcomes Measures Prior Function Daily Activity Raw Score: 24 Prior Function Daily Activity % Impaired: 0% AM-PAC Daily Activity Raw Score: 12 AM-PAC Daily Activity % Impaired: 66.57% Activity Tolerance Activity Tolerance: Tolerates 10 - 20 min activity with multiple rests (inc pain wit transfers) Therapy Precautions General Rehab Precautions: Fall risk Cognition Overall Cognitive Status: Within Functional Limits (grossly intact) Arousal/Alertness: Appropriate responses to stimuli Orientation Level: Oriented to person, Oriented to situation, Oriented to place, Oriented to time, With cues Executive functioning: Insight, Planning / Organizing, Min impairment Safety Judgment: Decreased awareness of need for assistance, Decreased awareness of need for safety Problem Solving: Assistance required to identify errors made, Assistance required to generate solutions, Assistance required to implement solutions Attention: Easily distracted Hearing Status: WFL Social Interaction: Cooperative, Appropriate Comments: Follows 1-step commands appropriately. Skilled Intervention Provided: patient education, task breakdown/simplification, verbal cues, re-oriented patient For: attention regulation, increased awareness of the environment, preparing for self-care tasks Resulting In: improved activity tolerance, improved attention, improved orientation ADL Lower Body Dressing: Dependent (EOB for socks) Toileting: Dependent (EOB for bedpan) Overall ADL Performance - Skilled Intervention Provided: environmental setup/modification, facilitation, monitoring patient response with activity, visual cues Overall ADL Performance - For: LE management, energy conservation, fall prevention, increased participation in mobility task Overall ADL Performance - Resulting In: improved activity tolerance, improved participation in ADL task(s), increased upright tolerance for functional task(s), decreasing fall risk Bed Mobility Supine to Sit: Minimal assist, Head of bed elevated Sit to Supine: Moderate assist, Head of bed flat Outboard Motor Assembler: bedrails, bed positioning mechanics, patient slide sheet / friction-reducing device Skilled Intervention Provided: environmental setup/modification, facilitation, monitoring patient response with activity, monitoring patient response with positional changes, verbal cues For: fall prevention, necessary precautions, safety during functional task(s), LE positioning, UE positioning Resulting In: improved activity tolerance, increased participation in mobility task(s), increased upright tolerance for functional tasks, decreasing fall risk Functional Transfers Sit to Stand: Maximal assist (two attempts to achieve partial stand) Outboard Motor Assembler: BUE, elevated surface height, other (comment) (RUE support on chair armrest) Additional Functional Transfer Trial 2: Yes Sit to Stand Trial 2: Maximal assist Outboard Motor Assembler Trial 2: (same as trial 1) Skilled Intervention Provided: verbal cues, environmental setup/modification, facilitation, monitoring patient response with activity, provided step by step instructions For: LE positioning, UE positioning, fall prevention, increased participation in mobility task, necessary precautions, proper body mechanics, safe use of AD and/or equipment, compensatory strategies, controlled descent Resulting In: improved activity tolerance, improved balance, increased initiation/participation in mobility task(s), decreasing fall risk Additional Treatment Details C/o dizziness at EOB that resolved with rest. Pt progressing towards OT goals. Home Living Obtained Home Living and PLOF info from: Patient Lives With: Spouse Type of Home: House Home Layout: Two level, Bed on main level Steps to enter home: Yes Rails to enter home: 1 rail Number of stairs to enter home: 4 Mobility Equipment: (Does not use any assistive devices) Prior Level of Function Level of Boyle - Transfers/Ambulation/Mobility: Independent with functional transfers, Independent with household ambulation Level of Boy[place] - ADLs: Independent Level of [place] - Homemaking: Independent Driving: Patient drives For complete objective data, detailed plan of care and patient education refer to: OT Evaluation flowsheet, OT Evaluation and Treatment flowsheet, OT Treatment flowsheet, patient Plan of Care, Plan of Care progress note, and Patient Education. This note stands as the current Discharge Summary upon patient discharge from the hospital or completion of Occupational Therapy Plan of Care. Date: 07/17/2025 Time: 11:18 AM Patient Name: Misael Medina Date of : 1950 Discharge Disposition Update: Patient to discharge to [facility] with HD when medically stable. Patient will need Availtiy precert and ambulance transport. HENS completed. Addendum 1352: Patient medically ready for discharge. Updated therapy notes requested from therapy team for precert. Patient and updated via telephone. D/C Disposition: [facility] Final D/C Agency/Destination: ([facility]) Plan A: [facility] Facility Plan B: Home Health Care Services Transportation: Transportation Type: Ambulance Discharge Disposition: HENS/PAS: [facility] Regulatory Documentation: [facility] In[facility] Progress Note 07/17/2025 Misael Medina 1950 [id number] Assessment/Plan: Misael Medina is a 75 year old female with a history of HFrEF, ESRD who presented to [facility] on 06/25/25 after suffering a mechanical fall with loss of consciousness. Her course was complicated by respiratory failure requiring intubation on 06/25/25, MRSA bacteremia requiring HD line removal, and symptomatic bradycardia. Patient transferred to [facility] 06/28/25 for management of cardiogenic and septic shock. Resumed iHD 06/30/25. Extubated 07/02/25. Found to also have lumbar osteomyelitis. MRSA Bacteremia: persistent MRSA bacteremia 06/25/25-06/27/25 per OSH records, HD catheter removed 06/26/25 with purulence at site. DESTIN 06/29/25 with SVC thrombus, no obvious other vegetation. Blood culture 06/27/25 +MRSA. Right femoral CVC removed 07/02/25. MRI brain non acute and L-spine developing discitis osteomyelitis at the L3-L4 level. Blood culture 07/07/25 negative. Per ID, 8 weeks of IV Vancomycin with HD through 08/29/25 followed by PO suppression with Doxycycline. Multifactorial Shock: multifactorial, but primarily distributive/septic shock from MRSA bacteremia, in patient with known heart failure. Required pressor support on admission. Dobutamine weaned off 07/01/25, vasopressors off 07/02/25. Antibiotics as mentioned. Improved. Discitis/Osteomyelitis: seen on MRI L spine 07/07/25. Neurosurgery deemed pt poor surgical candidate, recommended medical management at this time. Continued on IV antibiotics. Fourth Metatarsal Wound: s/p XR L foot 07/02/25 with large superficial subcutaneous wound involving the heel with subcutaneous edematous changes about the distal calf, ankle and foot. Wound care. Acute Hypoxic Respiratory Failure: in setting of shock and volume overload. Required intubation 06/25/25. CXR (06/29/25) with pulmonary edema with bilateral effusions. Extubated 07/03/25. Volume management with HD/Lasix. O2 weaned off and tolerating room air. Acute on Chronic HFrEF: with baseline EF of 35%, down to 20% here in setting of stress/shock state. Held all home GDMT given borderline blood pressures. Continued low-dose Hydralazine and Lasix. Volume management with HD. ESRD: s/p CRRT, transitioned to iHD. Perm cath placement by [facility] 07/11/25. Nephrology following for hemodialysis. Right Hip Pain: patient reported to ID team 07/10/25. X-ray right hip 07/10/25 non acute. ID recommended consulting Ortho while inpatient- Ortho recommended CT Hip 07/13/25, no infection/effusion. Ortho followed. Oxycodone, Lidocaine patch and Robaxin prn SVC Thrombus: noted on DESTIN 06/29/25 0.2 x 2.7cm mobile mass attached to the SVC wall. No vegetations. Per ID, repeat echo after completion of antibiotics. Heparin drip transitioned to renally dosed Eliquis on 07/15/25. Acute Metabolic Encephalopathy: in the setting of infection. CT Head (06/30/25) with hypodensities bilateral cerebellar hemispheres. MRI brain 07/07/25 non acute. Resolved T2DM: Held home oral regimen. SSI in place. Monitor. Anxiety/Depression: Continued home Remeron and Seroquel. Class 2 Obesity: BMI 37. Lifestyle modifications. Code status: Full -- Palliative team followed regarding goals of care, pt and family wanted to continue disease directed care, full code, signed off DVT Prophylaxis: Eliquis. Medication Reconciliation: Reviewed using EMR Current living situation: Home Expected Disposition: SNF Estimated discharge date: pending precert and transport Medically Ready for Discharge: yes Discussed with at bedside 07/09/25 Subjective: Pt new to me, laying more on Left side trying to keep weight off R hip - able to point exactly where pain is, I had ordered Lidocaine patch for that area and prn Robaxin Awaiting precert and transport Physical Exam: BP 108/68 (BP Location: Right arm, Patient Position: Lying) Pulse 76 Temp 97.9 F (36.6 C) (Oral) Resp 16 Ht 5' Wt 82.2 kg (181 lb 3.5 oz) SpO2 93% BMI 35.39 kg/m General: NAD Eyes: Sclera clear ENT: Neck supple. Cardiovascular: Regular rate, murmur Respiratory: Clear to auscultation Gastrointestinal: Soft, nondistended, nontender. Positive bowel sounds Genitourinary: No suprapubic tenderness Musculoskeletal: R great toe amputated Skin: Warm, dry. Scattered bruises/wounds to BLE Neuro: awake, alert. Generalized weakness. Psych: Calm and cooperative Current Medications: apixaban 2.5 mg Oral BID atorvastatin 10 mg Oral Nightly famotidine 20 mg Oral Nightly [Held by provider] hydrALAZINE 10 mg Oral Q8H YOLI lispro insulin 0-15 Units Subcutaneous at bedtime insulin lispro 0-30 Units Subcutaneous TID AC levothyroxine 112 mcg Oral Daily lidocaine 1 patch Transdermal Daily lidocaine 2 patch Transdermal Daily melatonin 5 mg Oral Nightly mirtazapine 7.5 mg Oral Nightly QUEtiapine 25 mg Oral Nightly senna-docusate 1 tablet Oral BID sodium chloride (PF) 10 mL Intracatheter Q8H YOLI sodium chloride (PF) 5 mL Intravenous Q8H YOLI vancomycin per pharmacy 1 each Intravenous as indicated by pharmacokinetics Labs, Imaging and Studies reviewed: Results from last 7 days Lab Units 07/17/25 04207/16/2534407/15/25 0351 WBC K/mcL 3.84* 4.46* 4.96 HGB g/dL 8.4* 8.4* 8.6* HCT % 27.0* 25.6* 26.8* PLT K/mcL 196 191 167 Results from last 7 days Lab Units 07/17/2542507/16/2534407/15/25 0351 SODIUM mmol/L 132* 135 136 POTASSIUM mmol/L 4.3 4.3 3.8 CHLORIDE mmol/L 96* 98 98 BICARB mmol/L 29 26 28 BUN mg/dL 26* 46* 35* CREATININE mg/dL 3.33* 4.53* 3.77* EGFR mL/min/1.73 m2 14* 10* 12* GLUCOSE mg/dL 72 80 78 CALCIUM mg/dL 8.0* 8.7 8.7 PHOSPHORUS mg/dL 3.2 3.9 3.5 Results from last 7 days Lab Units 07/10/25 0829 INR 1.2* 07/16/25 1516 Post-Hemodialysis Assessment Rinseback Volume (mL) 300 mL Total Liters Processed (L/min) 59.1 L/min Dialyzer Clearance Moderately streaked Duration of Treatment (minutes) 180 minutes Hemodialysis Fluid Given mL (Intake) 300 mL Hemodialysis Fluid Removed mL (Output) 1800 mL Patient Response to Treatment Tolerated tx, VSS throughout HD, stable at completion Post-Hemodialysis Comments net 1.5L fluid removed, post tx report called to primary RN Hemostatis Achieved Yes Treatment Status Completed Vital Signs Temp 97.4 F (36.3 C) Heart Rate (!) 58 Resp 13 BP (!) 112/57 MAP (mmHg) 74 Patient Position Lying Hemodialysis Central Line Access Permanent catheter Right Internal jugular (IJ) Placement Date/Time: 07/11/25 09 Inserted by: Natalia Gonzalez Site Prep: Chlorhexidine Site Prep Agent has Completely Dried Before Drape Applied: Yes Local Anesthetic: Injectable Dialysis Catheter Type: Tunneled Access Type: Permanent catheter ... 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 -No neurosurgical intervention at this time. -Pain control per primary, consider muscle relaxer -Antibiotics per ID recommendations Subjective: Denies pain this am Physical Exam: Neuro: Awake and alert, oriented to name, place, and time. Lumbar: Motor strength 5/5 bilateral HF, KF, KE, DF, PF, EHL. Sensation intact and equal throughout to light touch Vital Signs: Current: BP 123/77 (BP Location: Right arm, Patient Position: Lying) Pulse 75 Temp 98 F (36.7 C) (Oral) Resp 18 Ht 5' Wt 86 kg (189 lb 9.5 oz) SpO2 96% BMI 37.03 kg/m Last 24 hours: Temp: [97.3 F (36.3 C)-98.2 F (36.8 C)] 98 F (36.7 C) Heart Rate: [71-81] 75 Resp: [16-18] 18 BP: (99-123)/(61-77) 123/77 Intake/Output Summary (Last 24 hours) at 07/16/2025 1118 Last data filed at 07/16/2025 0800 Gross per 24 hour Intake 480 ml Output 0 ml Net 480 ml Labs: Lab Results Component Value Date NA 135 07/16/2025 K 4.3 07/16/2025 CL 98 07/16/2025 Lab Results Component Value Date WBC 4.46 (L) 07/16/2025 HGB 8.4 (L) 07/16/2025 HCT 25.6 (L) 07/16/2025 MCV 87.4 07/16/2025 PLT 191 07/16/2025 Lab Results Component Value Date INR 1.2 (H) 07/10/2025 PROTIME 15.7 (H) 07/10/2025 Completed by: Hermila Cai CNP on 07/16/25, 11:18 AM NEPHROLOGY PROGRESS NOTE [facility] Patient Name: Misael Medina MR#: [id number] : 1950 Admit Date: [id number] Physicians: Donal Will MD (Family); Saeed Zelaya MD (Referring) Attending: Physicians, [facility]* Reason for Consultation/History of Present Illness Patient is a 75yo female with history of JOSUE on CKD III secondary to ATN requiring HD, HFrEF, HTN, Type II DM, hypothyroidism, and morbid obesity. She initially presented to [facility] on 06/25/25 after a mechanical fall with LOC. Her course was complicated by acute respiratory failure requiring intubation (06/25) and MRSA bacteremia requiring perm cath removal for line holiday, and bradycardia. She was transferred to [facility] 06/28/25 for further management We are asked to manage dialysis. Assessment and Plan: 1) JOSUE on CKD III-->likely now ESRD -Started HD in March 2025 -Bx proven ATN (unclear circumstances) -TTS at [facility] with Dr. Carolyn Little chest perm cath removed [facility] (06/26) d/t MRSA bacteremia; replaced 07/11 -Unclear last HD [facility]OOK[facility] -EDW 96.3kg -[facility] 07/01-07/03; transitioned to iHD 07/06 -Continue MWF schedule for placement, HD 07/16 later today 2) Acute hypoxemic respiratory failure, improved -Intubated at OSH [facility]OOK[facility]; extubated 03/03 -CXR on admission with small bilateral effusions, mild vascular congestion -Volume removal with ELEVATOR CONSTRUCTOR; stopped Lasix 07/08 d/t poor recent UO -Further care per primary 3) MRSA bacteremia -Blood cx positive at OSH; thought secondary to perm cath (now removed); repeat cx positive x2 06/29 and again 07/02. 07/04 and 07/07 cx negative -DESTIN 06/29 with EF 20-25%, mod-severely reduced RV function, mild-mod , mod MR, no pericardial effusion, 0.5 x 2.7 cm mobile mass appears to be attached to the wall of the SVC 2cm from RA interface -MRI brain non-acute, but lumbar MRI with likely developing discitis osteomyelitis at the L3-L4 level with associated epidural phlegmon extending superiorly and inferiorly from the disc space resulting in at least moderate spinal canal stenosis at this level. 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 -OK for calcium replacement per ERP 6) Anemia of CKD -Hgb nearly at goal of 10-11, SHANTI not indicated in setting of acute thrombi -IV iron contraindicated in setting of bacteremia 7) Acute metabolic encephalopathy, improved -In setting of infection/sedatives -CT head limited d/t dental hardware/motion degredation -Bacteremia tx as above -Fluid removal with ELEVATOR CONSTRUCTOR 8) Hypernatremia; resolved -Previously hyponatremic -Lasix discontinued as above -Adjusting UF/Na bath with HD 9) SVC thrombus, Acute RIJ thrombus -Noted on DESTIN as above -On heparin gtt 10) HTN -Hydralazine resumed 07/03; held 07/14 d/t soft BP -UF as able with HD Following Planning SNF with onsite HD on discharge Dr. Vernon back tomorrow Subjective Seen in her room Doing okay, no acute events overnight BP stable, no CP or dyspnea Objective Vitals: BP 123/77 (BP Location: Right arm, Patient Position: Lying) Pulse 75 Temp 98 F (36.7 C) (Oral) Resp 18 Ht 5' Wt 86 kg (189 lb 9.5 oz) SpO2 96% BMI 37.03 kg/m Intake/Output last 3 shifts: Intake/Output Summary (Last 24 hours) at 07/16/2025 1022 Last data filed at 07/16/2025 0800 Gross per 24 hour Intake 600 ml Output 0 ml Net 600 ml I/O last 3 completed shifts: In: 600 [P.O.:600] Out: 0 Wt Readings from Last 3 Encounters: 07/16/25 86 kg (189 lb 9.5 oz) 05/31/17 122 kg (269 lb) Physical Examination: General: Ill appearing elderly female. NAD Neuro: Sleeping. No myoclonus. Cardiac: Regular rate, +murmur Pulmonary: unlabored on LFNC Skin: No rashes/lesions on exposed skin Extremities: Minimal LE edema Access: R chest perm cath with dressing in place Results/Medications Reviewed: 07/16/25 10:22 AM: Laboratory, Microbiology, Pathology, Radiology, Cardiology, Medications and Transcriptions Scheduled Meds: apixaban 2.5 mg Oral BID atorvastatin 10 mg Oral Nightly famotidine 20 mg Oral Nightly [Held by provider] hydrALAZINE 10 mg Oral Q8H YOLI lispro insulin 0-15 Units Subcutaneous at bedtime insulin lispro 0-30 Units Subcutaneous TID AC levothyroxine 112 mcg Oral Daily lidocaine 2 patch Transdermal Daily melatonin 5 mg Oral Nightly mirtazapine 7.5 mg Oral Nightly QUEtiapine 25 mg Oral Nightly senna-docusate 1 tablet Oral BID sodium chloride (PF) 10 mL Intracatheter Q8H YOLI sodium chloride (PF) 5 mL Intravenous Q8H YOLI vancomycin 750 mg Intravenous Once vancomycin per pharmacy 1 each Intravenous as indicated by pharmacokinetics Continuous Infusions: heparin infusion (weight based dosing) Stopped (07/15/252131) heparin Laboratory: Results from last 7 days Lab Units 07/16/25 0345 07/15/25 0351 07/14/25 0452 WBC K/mcL 4.46* 4.96 5.10 HGB g/dL 8.4* 8.6* 8.4* HCT % 25.6* 26.8* 26.9* PLT K/mcL 191 167 148* Results from last 7 days Lab Units 07/16/25 0345 07/15/25 0351 07/14/25 0452 SODIUM mmol/L 135 136 137 POTASSIUM mmol/L 4.3 3.8 3.7 CHLORIDE mmol/L 98 98 99 BICARB mmol/L 26 28 28 BUN mg/dL 46* 35* 25 CREATININE mg/dL 4.53* 3.77* 2.84* EGFR mL/min/1.73 m2 10* 12* 17* GLUCOSE mg/dL 80 78 85 CALCIUM mg/dL 8.7 8.7 8.6 PHOSPHORUS mg/dL 3.9 3.5 2.8 Results from last 7 days Lab Units 07/10/25 0829 INR 1.2* Deion Bergeron DO [facility] Please use Secure Chat to contact (If I am not signed in, please contact the covering Stopper Maker) [phone] (office, after 5pm/weekends) [facility] 07/16/2025 Misael Medina 1950 [id number] Assessment/Plan: Misael Medina is a 75 year old female with a history of HFrEF, ESRD, T2DM, Hypertension, Hyperlipidemia, who presented to [facility] on 06/25/25 after suffering a mechanical fall with loss of consciousness. Her course was complicated by respiratory failure requiring intubation on 06/25/25, MRSA bacteremia requiring HD line removal, and symptomatic bradycardia. Patient transferred to [facility] 06/28/25 for management of cardiogenic and septic shock. Resumed iHD 06/30/25. Transitioned to [facility] 07/01/25 for ongoing fluid removal. Extubated 07/02/25. [facility] consulted for medical management out of ICU. Awaiting disposition to SNF. Multifactorial Shock: multifactorial, but primarily distributive/septic shock from MRSA bacteremia, in patient with known heart failure. Required pressor support on admission. Dobutamine weaned off 07/01/25, vasopressors off 07/02/25. Antibiotics as mentioned. Improved. MRSA Bacteremia: persistent MRSA bacteremia 06/25/25-06/27/25 per OSH records, HD catheter removed 06/26/25 with purulence at site. DESTIN 06/29/25 with SVC thrombus, no obvious other vegetation. Blood culture 06/27/25 +MRSA. Repeat blood culture 06/29/25 and 07/02/25 both +MRSA. Right femoral CVC removed 07/02/25. Blood culture 07/04/25 NGTD. MRI brain non acute and L-spine developing discitis osteomyelitis at the L3-L4 level with associated epidural phlegmon extending superiorly and inferiorly from the disc space resulting in at least moderate spinal canal stenosis at this level. Continued Teflaro and Dapto. Blood culture drawn 07/07/25 NGTD. ID following. Per ID, 8 weeks of IV Vancomycin at Hemodialysis through 08/29/25 followed by PO suppression with Doxycycline. Discitis/Osteomyelitis: seen on MRI L spine 07/07/25. Neurosurgery evaluated and followed; poor surgical candidate, recommended medical management at this time. Continued on IV antibiotics. Abnormal CT head: 06/30/25 CT head with Ill-defined hypodensities throughout the bilateral cerebellar hemispheres are nonspecific and could be artifactual. MRI brain 07/07/25 non acute. Fourth Metatarsal Wound: s/p XR L foot 07/02/25 with relatively large superficial subcutaneous wound involving the heel with subcutaneous edematous changes about the distal calf, ankle and foot overall noted. ID following. Wound care. Consider Podiatry evaluation if worsens Acute Hypoxic Respiratory Failure: in setting of shock and volume overload. Required intubation 06/25/25. CXR (06/29/25) with pulmonary edema with bilateral effusions. Extubated 07/03/25 to LFNC. On 2L NC 07/05/25. Volume management with HD/Lasix. Wean O2 as tolerated. On 2 L NC since 07/07/25, since weaned off and tolerating room air. Acute on Chronic HFrEF: with baseline EF of 35%, down to 20% here in setting of stress/shock state. Holding all home GDMT given borderline blood pressures. Continued low-dose Hydralazine and Lasix. Volume management with HD. ESRD: s/p CRRT, transitioned to iHD. Perm cath placement by [facility] 07/11/25. Nephrology following for Hemodialysis. Acute Metabolic Encephalopathy: in the setting of infection. CT Head (06/30/25) with hypodensities bilateral cerebellar hemispheres. MRI Brain as mentioned. Delirium precautions. PT/OT/HOBBER as able. Improved. SVC Thrombus: noted on DESTIN as mentioned with 0.2 x 2.7cm mobile mass attached to the SVC wall. No vegetations. Per ID, repeat echo after completion of antibiotics. Heparin drip transitioned to renally dosed Eliquis on 07/15/25. T2DM: per history. Held home oral regimen. SSI in place. Monitor. Anxiety/Depression: per history. Continue home Remeron and Seroquel. Right Hip Pain: patient reported to ID team 07/10/25. X-ray right hip 07/10/25 non acute. Follow up with Ortho as outpatient. ID recommended consulting Ortho while inpatient, consulted 07/12/25. Evaluated. Repeat CT Hip 07/13/25 with no infection/effusion. Supportive care. Ortho following. Due to increasing pain on 07/16/25, ordered pain regimen with Oxycodone PRN. Class 2 Obesity: BMI 37. Lifestyle modifications. Code status: Full -- Palliative team following for Goals of Care discussions with /family. VTE Prophylaxis: Eliquis. Medication Reconciliation: Reviewed using EMR Current living situation: Home Expected Disposition: SNF Estimated discharge date: likely 07/17/25 Medically Ready for Discharge: getting there Discussed with at bedside 07/09/25 Subjective: Patient seen and evaluated at bedside this morning. She was sitting on the edge of bed. In severe pain. Ordered IV Dilaudid x 1 and ordered PRN Oxycodone. Resting in bed. Awaiting placement. Reviewed chart. Hb 8.4. Cr 4.53. Monitor for toxicity while on IV antibiotics, Oxycodone. Physical Exam: BP 123/77 (BP Location: Right arm, Patient Position: Lying) Pulse 75 Temp 98 F (36.7 C) (Oral) Resp 16 Ht 5' Wt 86 kg (189 lb 9.5 oz) SpO2 96% BMI 37.03 kg/m General: NAD Eyes: Sclera clear ENT: Neck supple. Cardiovascular: Regular rate, no murmur Respiratory: Clear to auscultation, symmetric air entry. Unlabored on 2L NC. Gastrointestinal: Soft, nondistended, nontender. Positive bowel sounds Genitourinary: No suprapubic tenderness Musculoskeletal: R great toe amputated Skin: Warm, dry. Scattered bruises/wounds to BLE Neuro: awake, alert. Generalized weakness. Psych: Calm and cooperative Current Medications: apixaban 2.5 mg Oral BID atorvastatin 10 mg Oral Nightly famotidine 20 mg Oral Nightly [Held by provider] hydrALAZINE 10 mg Oral Q8H YOLI lispro insulin 0-15 Units Subcutaneous at bedtime insulin lispro 0-30 Units Subcutaneous TID AC levothyroxine 112 mcg Oral Daily lidocaine 2 patch Transdermal Daily melatonin 5 mg Oral Nightly mirtazapine 7.5 mg Oral Nightly QUEtiapine 25 mg Oral Nightly senna-docusate 1 tablet Oral BID sodium chloride (PF) 10 mL Intracatheter Q8H YOLI sodium chloride (PF) 5 mL Intravenous Q8H YOLI vancomycin 750 mg Intravenous Once vancomycin per pharmacy 1 each Intravenous as indicated by pharmacokinetics Labs, Imaging and Studies reviewed: Results from last 7 days Lab Units 07/16/25 03407/15/25 0351 07/14/25 0452 WBC K/mcL 4.46* 4.96 5.10 HGB g/dL 8.4* 8.6* 8.4* HCT % 25.6* 26.8* 26.9* PLT K/mcL 191 167 148* Results from last 7 days Lab Units 07/16/25 03407/15/25 0351 07/14/25 0452 SODIUM mmol/L 135 136 137 POTASSIUM mmol/L 4.3 3.8 3.7 CHLORIDE mmol/L 98 98 99 BICARB mmol/L 26 28 28 BUN mg/dL 46* 35* 25 CREATININE mg/dL 4.53* 3.77* 2.84* EGFR mL/min/1.73 m2 10* 12* 17* GLUCOSE mg/dL 80 78 85 CALCIUM mg/dL 8.7 8.7 8.6 PHOSPHORUS mg/dL 3.9 3.5 2.8 Results from last 7 days Lab Units 07/10/25 0829 INR 1.2* PHARMACOTHERAPY NOTE: Antimicrobial Therapy Follow-up Assessment / Plan: Misael Medina is a 75 y.o. female on Vancomycin for bacteremia. This patient is being dosed intermittently or targeting trough goals due to need for renal replacement therapy. Vancomycin goal pre-dialysis level is 18-24 mcg/mL. Based on pre-hemodialysis serum concentration of 18.6 mcg/ml, will expect concentration to fall below the goal range after HD and will give a supplemental dose of ~7.5mg/kg = 750 mg (8.5 mg/kg) today after HD. Pharmacy will continue to follow, monitor serum creatinine levels and urine output (if available) daily, order levels, and make adjustments as clinically appropriate. Please call pharmacy with questions. Therapeutic Drug Monitoring: Date Serum Concentration (mcg/ml) Dose 07/16 18.6 750 mg x 1 Subjective/Objective: Ht Readings from Last 1 Encounters: 06/28/25 5' (152.4 cm) Wt Readings from Last 1 Encounters: 07/16/25 86 kg (189 lb 9.5 oz) [place] body weight: 45.5 kg (100 lb 4.9 oz) Adjusted ideal body weight: 61.7 kg (136 lb 0.4 oz) Labs include: Lab Results 07/16/25 0345 WBC 4.46* Lab Results 07/16/25 034 Creatinine 4.53* Estimated Creatinine Clearance: 7.7 mL/min (A) (by C-G formula based on SCr of 4.53 mg/dL (H)). Patient Tmax (last 24 hours): 98.2 F Pharmacist: Reagan Bronson RPh,Gee, [facility] Contact Number: [phone] [facility] Inpatient Progress Note 07/15/2025 Misael Medina 1950 [id number] Assessment/Plan: Misael Medina is a 75 year old female with a history of HFrEF, ESRD, T2DM, Hypertension, Hyperlipidemia, who presented to [facility] on 06/25/25 after suffering a mechanical fall with loss of consciousness. Her course was complicated by respiratory failure requiring intubation on 06/25/25, MRSA bacteremia requiring HD line removal, and symptomatic bradycardia. Patient transferred to [facility] 06/28/25 for management of cardiogenic and septic shock. Resumed iHD 06/30/25. Transitioned to [facility] 07/01/25 for ongoing fluid removal. Extubated 07/02/25. [facility] consulted for medical management out of ICU. Multifactorial Shock: multifactorial, but primarily distributive/septic shock from MRSA bacteremia, in patient with known heart failure. Required pressor support on admission. Dobutamine weaned off 07/01/25, vasopressors off 07/02/25. Antibiotics as mentioned. Improved. MRSA Bacteremia: persistent MRSA bacteremia 06/25/25-06/27/25 per OSH records, HD catheter removed 06/26/25 with purulence at site. DESTIN 06/29/25 with SVC thrombus, no obvious other vegetation. Blood culture 06/27/25 +MRSA. Repeat blood culture 06/29/25 and 07/02/25 both +MRSA. Right femoral CVC removed 07/02/25. Blood culture 07/04/25 NGTD. MRI brain non acute and L-spine developing discitis osteomyelitis at the L3-L4 level with associated epidural phlegmon extending superiorly and inferiorly from the disc space resulting in at least moderate spinal canal stenosis at this level. Continued Teflaro and Dapto. Blood culture drawn 07/07/25 NGTD ID following. Per ID, 8 weeks of IV Vancomycin at Hemodialysis through 08/29/25 followed by PO suppression with Doxycycline. Discitis/Osteomyelitis: seen on MRI L spine. Neurosurgery evaluated; poor surgical candidate, recommended medical management at this time. Continued on IV antibiotics. Abnormal CT head: 06/30/25 CT head with Ill-defined hypodensities throughout the bilateral cerebellar hemispheres are nonspecific and could be artifactual. MRI brain non acute. Fourth Metatarsal Wound: s/p XR L foot 07/02/25 with relatively large superficial subcutaneous wound involving the heel with subcutaneous edematous changes about the distal calf, ankle and foot overall noted. ID following as above. Wound care. Consider Podiatry evaluation if worsens Acute Hypoxic Respiratory Failure: in setting of shock and volume overload. Requiring intubation 06/25/25. CXR (06/29/25) with pulmonary edema with bilateral effusions. Extubated 07/03/25 to LFNC. On 2L NC 07/05/25. Volume management with HD/Lasix. Wean O2 as tolerated. On 2 L NC 07/07/25 Acute on Chronic HFrEF: with baseline EF of 35%, down to 20% here in setting of stress/shock state. Holding all home GDMT given borderline blood pressures. Continued low-dose Hydralazine and Lasix. Volume management with HD. ESRD: s/p CRRT, transitioned to iHD. Perm cath placement by VIR 07/11/25. Nephrology following. Acute Metabolic Encephalopathy: in the setting of above. CT Head (06/30/25) with hypodensities bilateral cerebellar hemispheres. Consider MRI brain when able. Delirium precautions. PT/OT/HOBBER as able. Improved. SVC Thrombus: noted on DESTIN as above with 0.2 x 2.7cm mobile mass attached to the SVC wall. No vegetations. Per ID, repeat echo after completion of antibiotics. Heparin drip transitioned to renally dosed Eliquis on 07/15/25. T2DM: per history. Held home oral regimen. SSI in place. Monitor. Anxiety/Depression: per history. Continue home Remeron and Seroquel. Right Hip Pain: patient reported to ID team 07/10/25. X-ray right hip 07/10/25 non acute. Follow up with Ortho as outpatient. ID recommended consulting Ortho while inpatient, consulted 07/12/25. Evaluated. Repeat CT Hip 07/13/25 with no infection/effusion. Supportive care. Ortho following. Class 2 Obesity: BMI 37. Lifestyle modifications. Code status: Full -- Palliative team following for Goals of Care discussions with /family. VTE Prophylaxis: Eliquis. Medication Reconciliation: Reviewed using EMR Current living situation: Home Expected Disposition: SNF Estimated discharge date: 07/17/25 Medically Ready for Discharge: getting there Discussed with at bedside 07/09/25 Subjective: Patient seen and evaluated at bedside this morning. Resting in bed. Complained of right hip pain. Awaiting placement. Reviewed chart. Hb 8.4->8.6. Platelets normalized. Monitor for toxicity while on IV antibiotics. Discussed with Pharmacist regarding switching to DOAC and recommended Eliquis 2.5 mg based on dialysis status. Physical Exam: BP 114/70 (BP Location: Left arm, Patient Position: Lying) Pulse 87 Temp 97.3 F (36.3 C) (Oral) Resp 18 Ht 5' Wt 85.5 kg (188 lb 7.9 oz) SpO2 91% BMI 36.81 kg/m General: NAD Eyes: Sclera clear ENT: Neck supple. Cardiovascular: Regular rate, no murmur Respiratory: Clear to auscultation, symmetric air entry. Unlabored on 2L NC. Gastrointestinal: Soft, nondistended, nontender. Positive bowel sounds Genitourinary: No suprapubic tenderness Musculoskeletal: R great toe amputated Skin: Warm, dry. Scattered bruises/wounds to BLE Neuro: awake, alert. Generalized weakness. Psych: Calm and cooperative Current Medications: atorvastatin 10 mg Oral Nightly famotidine 20 mg Oral Nightly [Held by provider] hydrALAZINE 10 mg Oral Q8H YOLI lispro insulin 0-15 Units Subcutaneous at bedtime insulin lispro 0-30 Units Subcutaneous TID AC levothyroxine 112 mcg Oral Daily lidocaine 2 patch Transdermal Daily melatonin 5 mg Oral Nightly mirtazapine 7.5 mg Oral Nightly QUEtiapine 25 mg Oral Nightly senna-docusate 1 tablet Oral BID sodium chloride (PF) 10 mL Intracatheter Q8H YOLI sodium chloride (PF) 5 mL Intravenous Q8H YOLI vancomycin per pharmacy 1 each Intravenous as indicated by pharmacokinetics Labs, Imaging and Studies reviewed: Results from last 7 days Lab Units 07/15/25 0351 07/14/25 0452 07/13/25 0427 WBC K/mcL 4.96 5.10 5.61 HGB g/dL 8.6* 8.4* 8.5* HCT % 26.8* 26.9* 26.6* PLT K/mcL 167 148* 148* Results from last 7 days Lab Units 07/15/25 0351 07/14/25 0452 07/13/25 0427 SODIUM mmol/L 136 137 140 POTASSIUM mmol/L 3.8 3.7 3.9 CHLORIDE mmol/L 98 99 102 BICARB mmol/L 28 28 26 BUN mg/dL 35* 25 41* CREATININE mg/dL 3.77* 2.84* 4.29* EGFR mL/min/1.73 m2 12* 17* 10* GLUCOSE mg/dL 78 85 80 CALCIUM mg/dL 8.7 8.6 8.7 PHOSPHORUS mg/dL 3.5 2.8 4.0 Results from last 7 days Lab Units 07/10/25 0829 INR 1.2* [facility] Inpatient Progress Note 07/14/2025 Misael Medina 1950 [id number] Assessment/Plan: Misael Medina is a 75 year old female with a history of HFrEF, ESRD, T2DM, Hypertension, Hyperlipidemia, who presented to [facility] on 06/25/25 after suffering a mechanical fall with loss of consciousness. Her course was complicated by respiratory failure requiring intubation on 06/25/25, MRSA bacteremia requiring HD line removal, and symptomatic bradycardia. Patient transferred to [facility] 06/28/25 for management of cardiogenic and septic shock. Resumed iHD 06/30. Transition to [facility] 07/01/25 for ongoing fluid removal. Extubated 07/02/25. [facility] consulted for medical management out of ICU. Multifactorial Shock: multifactorial, but primarily distributive/septic shock from MRSA bacteremia, in patient with known heart failure. Required pressor support on admission. Dobutamine weaned off 07/01/25, vasopressors off 07/02/25. Antibiotics as mentioned. Improved. MRSA Bacteremia: persistent MRSA bacteremia 06/25/25-06/27/25 per OSH records, HD catheter removed 06/26/25 with purulence at site. DESTIN 06/29/25 with SVC thrombus, no obvious other vegetation. Blood culture 06/27/25 +MRSA. Repeat blood culture 06/29/25 and 07/02/25 both +MRSA. Right femoral CVC removed 07/02/25. Blood culture 07/04/25 NGTD. MRI brain non acute and L-spine developing discitis osteomyelitis at the L3-L4 level with associated epidural phlegmon extending superiorly and inferiorly from the disc space resulting in at least moderate spinal canal stenosis at this level. Continued Teflaro and Dapto. Blood culture drawn 07/07/25 NGTD ID following. Per ID, 8 weeks of IV Vancomycin at Hemodialysis through 08/29/25 followed by PO suppression with Doxycycline. Discitis/Osteomyelitis: seen on MRI L spine. Neurosurgery evaluated; poor surgical candidate, recommended medical management at this time. Continued on IV antibiotics. Abnormal CT head: 06/30/25 CT head with Ill-defined hypodensities throughout the bilateral cerebellar hemispheres are nonspecific and could be artifactual. MRI brain non acute. Fourth Metatarsal Wound: s/p XR L foot 07/02/25 with relatively large superficial subcutaneous wound involving the heel with subcutaneous edematous changes about the distal calf, ankle and foot overall noted. ID following as above. Wound care. Consider Podiatry evaluation if worsens Acute Hypoxic Respiratory Failure: in setting of shock and volume overload. Requiring intubation 06/25/25. CXR (06/29/25) with pulmonary edema with bilateral effusions. Extubated 07/03/25 to LFNC. On 2L NC 07/05/25. Volume management with HD/Lasix. Wean O2 as tolerated. On 2 L NC 07/07/25 Acute on Chronic HFrEF: with baseline EF of 35%, down to 20% here in setting of stress/shock state. Holding all home GDMT given borderline blood pressures. Continued low-dose Hydralazine and Lasix. Volume management with HD. ESRD: s/p CRRT, transitioned to iHD. Perm cath placement by VIR 07/11/25. Nephrology following. Acute Metabolic Encephalopathy: in the setting of above. CT Head (06/30/25) with hypodensities bilateral cerebellar hemispheres. Consider MRI brain when able. Delirium precautions. PT/OT/HOBBER as able. Improved. SVC Thrombus: noted on DESTIN as above with 0.2 x 2.7cm mobile mass attached to the SVC wall. Heparin drip in place. T2DM: per history. Held home oral regimen. SSI in place. Monitor. Anxiety/Depression: per history. Continue home Remeron and Seroquel. Right Hip Pain: patient reported to ID team 07/10/25. X-ray right hip 07/10/25 non acute. Follow up with Ortho as outpatient. ID recommended consulting Ortho while inpatient, consulted 07/12/25. Evaluated. Repeat CT Hip 07/13/25 with no infection/effusion. Supportive care. Ortho following. Thrombocytopenia: platelets 148k on 07/13/25. Likely reactive. Trend. Class 2 Obesity: BMI 37. Lifestyle modifications. Code status: Full -- Palliative team following for Goals of Care discussions with /family. VTE Prophylaxis: Heparin drip. Medication Reconciliation: Reviewed using EMR Current living situation: Home Expected Disposition: SNF Estimated discharge date: 07/17/25 Medically Ready for Discharge: getting there Discussed with at bedside 07/09/25 Subjective: Patient seen and evaluated at bedside this morning. Resting in bed. Reviewed chart. Hb 8.4. Platelets 148k. Monitor for toxicity while on IV antibiotics. Physical Exam: BP 109/69 (BP Location: Left arm, Patient Position: Lying) Pulse 74 Temp 97.6 F (36.4 C) (Oral) Resp 18 Ht 5' Wt 88.6 kg (195 lb 5.2 oz) SpO2 95% BMI 38.15 kg/m General: NAD Eyes: Sclera clear ENT: Neck supple. Cardiovascular: Regular rate, no murmur Respiratory: Clear to auscultation, symmetric air entry. Unlabored on 2L NC. Gastrointestinal: Soft, nondistended, nontender. Positive bowel sounds Genitourinary: No suprapubic tenderness Musculoskeletal: R great toe amputated Skin: Warm, dry. Scattered bruises/wounds to BLE Neuro: awake, alert. Generalized weakness. Psych: Calm and cooperative Current Medications: atorvastatin 10 mg Oral Nightly famotidine 20 mg Oral Nightly [Held by provider] hydrALAZINE 10 mg Oral Q8H YOLI lispro insulin 0-15 Units Subcutaneous at bedtime insulin lispro 0-30 Units Subcutaneous TID AC levothyroxine 112 mcg Oral Daily lidocaine 2 patch Transdermal Daily melatonin 5 mg Oral Nightly mirtazapine 7.5 mg Oral Nightly QUEtiapine 25 mg Oral Nightly senna-docusate 1 tablet Oral BID sodium chloride (PF) 10 mL Intracatheter Q8H YOLI sodium chloride (PF) 5 mL Intravenous Q8H YOLI vancomycin per pharmacy 1 each Intravenous as indicated by pharmacokinetics Labs, Imaging and Studies reviewed: Results from last 7 days Lab Units 07/14/25 0452 07/13/25 0427 07/12/25 0049 WBC K/mcL 5.10 5.61 6.26 HGB g/dL 8.4* 8.5* 8.4* HCT % 26.9* 26.6* 26.7* PLT K/mcL 148* 148* 139* Results from last 7 days Lab Units 07/14/25 0452 07/13/25 0427 07/12/25 0049 SODIUM mmol/L 137 140 137 POTASSIUM mmol/L 3.7 3.9 4.3 CHLORIDE mmol/L 99 102 100 BICARB mmol/L 28 26 27 BUN mg/dL 25 41* 25 CREATININE mg/dL 2.84* 4.29* 3.53* EGFR mL/min/1.73 m2 17* 10* 13* GLUCOSE mg/dL 85 80 96 CALCIUM mg/dL 8.6 8.7 8.2* PHOSPHORUS mg/dL 2.8 4.0 3.4 Results from last 7 days Lab Units 07/10/25 0829 INR 1.2* NEPHROLOGY PROGRESS NOTE [facility] Patient Name: Misael Medina MR#: [id number] : 1950 Admit Date: [id number] Physicians: Donal Will MD (Family); Saeed Zelaya MD (Referring) Attending: Physicians, [facility]* Reason for Consultation/History of Present Illness Patient is a 75yo female with history of JOSUE on CKD III secondary to ATN requiring HD, HFrEF, HTN, Type II DM, hypothyroidism, and morbid obesity. She initially presented to [facility] on 06/25/25 after a mechanical fall with LOC. Her course was complicated by acute respiratory failure requiring intubation (06/25) and MRSA bacteremia requiring perm cath removal for line holiday, and bradycardia. She was transferred to [facility] 06/28/25 for further management We are asked to manage dialysis. Assessment and Plan: 1) JOSUE on CKD III-->likely now ESRD -Started HD in March 2025 -Bx proven ATN (unclear circumstances) -TTS at [facility] with Dr. Carolyn Little chest perm cath removed BLIND [facility]OOKER (06/26) d/t MRSA bacteremia; replaced 07/11 -Unclear last HD [facility]IND [facility]OOK[facility] -EDW 96.3kg -[facility] 07/01-07/03; transitioned to iHD 07/06 -Continue MWF schedule for placement, next HD 07/16 2) Acute hypoxemic respiratory failure, improved -Intubated at OSH [facility]IND [facility]OOKER; extubated 03/03 -CXR on admission with small bilateral effusions, mild vascular congestion -Volume removal with [employer]LEVATOR [employer]; stopped Lasix 07/08 d/t poor recent UO -Further care per primary 3) MRSA bacteremia -Blood cx positive at OSH; thought secondary to perm cath (now removed); repeat cx positive x2 06/29 and again 07/02. 07/04 and 07/07 cx negative -DESTIN 06/29 with EF 20-25%, mod-severely reduced RV function, mild-mod , mod MR, no pericardial effusion, 0.5 x 2.7 cm mobile mass appears to be attached to the wall of the SVC 2cm from RA interface -MRI brain non-acute, but lumbar MRI with likely developing discitis osteomyelitis at the L3-L4 level with associated epidural phlegmon extending superiorly and inferiorly from the disc space resulting in at least moderate spinal canal stenosis at this level. 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 -OK for calcium replacement per ERP 6) Anemia of CKD -Hgb nearly at goal of 10-11, SHANTI not indicated in setting of acute thrombi -IV iron contraindicated in setting of bacteremia 7) Acute metabolic encephalopathy, improved -In setting of infection/sedatives -CT head limited d/t dental hardware/motion degredation -Bacteremia tx as above -Fluid removal with ELEVATOR [employer]STRUCTOR 8) Hypernatremia; resolved -Previously hyponatremic -Lasix discontinued as above -Adjusting UF/Na bath with HD 9) SVC thrombus, Acute RIJ thrombus -Noted on DESTIN as above -On heparin gtt 10) HTN -Hydralazine resumed 07/03; held 07/14 d/t soft BP -UF as able with HD Following Planning SNF with onsite HD on discharge Will discuss with Dr. Bergeron, who will be covering tomorrow Subjective Seen in her room She was sleeping and appeared comfortable, so she was not roused Note ID sign off yesterday No noted issues with HD yesterday Objective Vitals: BP 106/67 (BP Location: Left arm, Patient Position: Lying) Pulse 84 Temp 98.1 F (36.7 C) (Oral) Resp 16 Ht 5' Wt 88.6 kg (195 lb 5.2 oz) SpO2 90% BMI 38.15 kg/m Intake/Output last 3 shifts: Intake/Output Summary (Last 24 hours) at 07/14/2025 0549 Last data filed at 07/13/2025 2210 Gross per 24 hour Intake 700 ml Output 1800 ml Net -1100 ml I/O last 3 completed shifts: In: 537 [P.O.:237; Other:300] Out: 1800 [Other:1800] Wt Readings from Last 3 Encounters: 07/14/25 88.6 kg (195 lb 5.2 oz) 05/31/17 122 kg (269 lb) Physical Examination: General: Ill appearing elderly female. NAD Neuro: Sleeping. No myoclonus. Cardiac: Regular rate, +murmur Pulmonary: unlabored on LFNC Skin: No rashes/lesions on exposed skin Extremities: Minimal LE edema Access: R chest perm cath with dressing in place Results/Medications Reviewed: 07/14/25 5:49 AM: Laboratory, Microbiology, Pathology, Radiology, Cardiology, Medications and Transcriptions Scheduled Meds: atorvastatin 10 mg Oral Nightly famotidine 20 mg Oral Nightly hydrALAZINE 10 mg Oral Q8H YOLI lispro insulin 0-15 Units Subcutaneous at bedtime insulin lispro 0-30 Units Subcutaneous TID AC levothyroxine 112 mcg Oral Daily lidocaine 2 patch Transdermal Daily melatonin 5 mg Oral Nightly mirtazapine 7.5 mg Oral Nightly QUEtiapine 25 mg Oral Nightly senna-docusate 1 tablet Oral BID sodium chloride (PF) 10 mL Intracatheter Q8H YOLI sodium chloride (PF) 5 mL Intravenous Q8H YOLI vancomycin per pharmacy 1 each Intravenous as indicated by pharmacokinetics Continuous Infusions: heparin infusion (weight based dosing) 12 Units/kg/hr (07/13/25 2100) heparin Laboratory: Results from last 7 days Lab Units 07/14/25 0452 07/13/25 0427 07/12/25 0049 WBC K/mcL 5.10 5.61 6.26 HGB g/dL 8.4* 8.5* 8.4* HCT % 26.9* 26.6* 26.7* PLT K/mcL 148* 148* 139* Results from last 7 days Lab Units 07/14/25 0452 07/13/25 0427 07/12/25 0049 SODIUM mmol/L 137 140 137 POTASSIUM mmol/L 3.7 3.9 4.3 CHLORIDE mmol/L 99 102 100 BICARB mmol/L 28 26 27 BUN mg/dL 25 41* 25 CREATININE mg/dL 2.84* 4.29* 3.53* EGFR mL/min/1.73 m2 17* 10* 13* GLUCOSE mg/dL 85 80 96 CALCIUM mg/dL 8.6 8.7 8.2* PHOSPHORUS mg/dL 2.8 4.0 3.4 Results from last 7 days Lab Units 07/10/25 0829 INR 1.2* Adrianne Mi PA-C [facility] Please use Secure Chat to contact (If I am not signed in, please contact the covering Stopper Maker) [phone] (office, after 5pm/weekends) 07/13/25 1832 Post-Hemodialysis Assessment Rinseback Volume (mL) 300 mL Total Liters Processed (L/min) 56.8 L/min Dialyzer Clearance Lightly streaked Duration of Treatment (minutes) 180 minutes Hemodialysis Fluid Given mL (Intake) 300 mL Hemodialysis Fluid Removed mL (Output) 1800 mL Patient Response to Treatment tolerated well Post-Hemodialysis Comments net 1.5L removed Treatment Status Completed Vital Signs Temp 97.4 F (36.3 C) Temp src Oral Heart Rate 72 Resp (!) 19 BP 134/63 MAP (mmHg) 84 Hemodialysis Central Line Access Permanent catheter Right Internal jugular (IJ) Placement Date/Time: 07/11/25 0953 Inserted by: Natalia Gonzalez Site Prep: Chlorhexidine Site Prep Agent has Completely Dried Before Drape Applied: Yes Local Anesthetic: Injectable Dialysis Catheter Type: Tunneled Access Type: Permanent catheter ... Site Assessment Clean;Dry;Intact Arterial Line Status Deaccessed;Flushed;Clamped Venous Line Status Deaccessed;Flushed;Clamped Dressing Status Clean;Intact (07/11) Dressing Change Due 07/18/25 Line Intervention Flushed;Alcohol cap Site Condition No complications Dressing CHG patch (chlorhexidine);Occlusive Date: 07/13/2025 Time: 4:29 PM Patient Name: Misael Medina Date of : 1950 Discharge Disposition Update: Care management is following for discharge needs. [employer] discussed case with hospitalist who notes pt is not ready for pre-cert to be started. Per last RN CM note, plan for pt to discharge to [facility] once medically ready. Will need auth started when appropriate. D/C Disposition: [facility] Facility Plan A: [facility] Facility Plan B: Home Health Care Services Transportation: Transportation Type: Ambulance Discharge Disposition: HENS/PAS: [facility] Regulatory Documentation: PHARMACOTHERAPY NOTE: Antimicrobial Therapy Follow-up Assessment / Plan: Misael Medina is a 75 y.o. female on Vancomycin for bacteremia. This patient is being dosed intermittently or targeting trough goals due to need for renal replacement therapy. Vancomycin goal pre-dialysis level is 18-24 mcg/mL. Based on pre-hemodialysis serum concentration of 20.6 mcg/ml, will expect concentration to fall below the goal range after HD and will give a supplemental dose of 7.5mg/kg = 750 mg today after HD. Pharmacy will continue to follow, monitor serum creatinine levels and urine output (if available) daily, order levels, and make adjustments as clinically appropriate. Please call pharmacy with questions. Therapeutic Drug Monitoring: Date Serum Concentration (mcg/ml) Dose 07/13 20.6 750 mg Subjective/Objective: Ht Readings from Last 1 Encounters: 06/28/25 5' (152.4 cm) Wt Readings from Last 1 Encounters: 07/13/25 86.7 kg (191 lb 2.2 oz) [place] body weight: 45.5 kg (100 lb 4.9 oz) Adjusted ideal body weight: 62 kg (136 lb 10.3 oz) Labs include: Lab Results 07/13/25 0427 WBC 5.61 Lab Results 07/13/25 0427 Creatinine 4.29* Estimated Creatinine Clearance: 8.1 mL/min (A) (by C-G formula based on SCr of 4.29 mg/dL (H)). Patient Tmax (last 24 hours): 98.1 F Pharmacist: Tara Veronica RPh,PharmD Contact Number: [employer] or Secure Chat [facility] Inpatient Progress Note 07/13/2025 Misael Medina 1950 [id number] Assessment/Plan: Misael Medina is a 75 year old female with a history of HFrEF, ESRD, T2DM, Hypertension, Hyperlipidemia, who presented to [facility] on 06/25/25 after suffering a mechanical fall with loss of consciousness. Her course was complicated by respiratory failure requiring intubation on 06/25/25, MRSA bacteremia requiring HD line removal, and symptomatic bradycardia. Patient transferred to [facility] 06/28/25 for management of cardiogenic and septic shock. Resumed iHD 06/30. Transition to [facility] 07/01/25 for ongoing fluid removal. Extubated 07/02/25. [facility] consulted for medical management out of ICU. Multifactorial Shock: multifactorial, but primarily distributive/septic shock from MRSA bacteremia, in patient with known heart failure. Required pressor support on admission. Dobutamine weaned off 07/01/25, vasopressors off 07/02/25. Antibiotics as mentioned. Improved. MRSA Bacteremia: persistent MRSA bacteremia 06/25/25-06/27/25 per OSH records, HD catheter removed 06/26/25 with purulence at site. DESTIN 06/29/25 with SVC thrombus, no obvious other vegetation. Blood culture 06/27/25 +MRSA. Repeat blood culture 06/29/25 and 07/02/25 both +MRSA. Right femoral CVC removed 07/02/25. Blood culture 07/04/25 NGTD. MRI brain non acute and L-spine developing discitis osteomyelitis at the L3-L4 level with associated epidural phlegmon extending superiorly and inferiorly from the disc space resulting in at least moderate spinal canal stenosis at this level. Continued Teflaro and Dapto. Blood culture drawn 07/07/25 NGTD ID following. Per ID, 8 weeks of IV Vancomycin at Hemodialysis through 08/29/25 followed by PO suppression with Doxycycline. Discitis/Osteomyelitis: seen on MRI L spine. Neurosurgery evaluated; poor surgical candidate, recommended medical management at this time. Continued on IV antibiotics. Abnormal CT head: 06/30/25 CT head with Ill-defined hypodensities throughout the bilateral cerebellar hemispheres are nonspecific and could be artifactual. MRI brain non acute. Fourth Metatarsal Wound: s/p XR L foot 07/02/25 with relatively large superficial subcutaneous wound involving the heel with subcutaneous edematous changes about the distal calf, ankle and foot overall noted. ID following as above. Wound care. Consider Podiatry evaluation if worsens Acute Hypoxic Respiratory Failure: in setting of shock and volume overload. Requiring intubation 06/25/25. CXR (06/29/25) with pulmonary edema with bilateral effusions. Extubated 07/03/25 to LFNC. On 2L NC 07/05/25. Volume management with HD/Lasix. Wean O2 as tolerated. On 2 L NC 07/07/25 Acute on Chronic HFrEF: with baseline EF of 35%, down to 20% here in setting of stress/shock state. Holding all home GDMT given borderline blood pressures. Continued low-dose Hydralazine and Lasix. Volume management with HD. ESRD: s/p CRRT, transitioned to iHD. Perm cath placement by VIR 07/11/25. Nephrology following. Dialysis holiday 07/13/25. Acute Metabolic Encephalopathy: in the setting of above. CT Head (06/30/25) with hypodensities bilateral cerebellar hemispheres. Consider MRI brain when able. Delirium precautions. PT/OT/HOBBER as able. Improved. SVC Thrombus: noted on DESTIN as above with 0.2 x 2.7cm mobile mass attached to the SVC wall. Heparin drip in place. T2DM: per history. Held home oral regimen. SSI in place. Monitor. Anxiety/Depression: per history. Continue home Remeron and Seroquel. Right Hip Pain: patient reported to ID team 07/10/25. X-ray right hip 07/10/25 non acute. Follow up with Ortho as outpatient. ID recommended consulting Ortho while inpatient, consulted 07/12/25. Evaluated. Repeat CT Hip 07/13/25 with no infection/effusion. Supportive care. Ortho following. Thrombocytopenia: platelets 148k on 07/13/25. Likely reactive. Trend. Class 2 Obesity: BMI 37. Lifestyle modifications. Code status: Full -- Palliative team following for Goals of Care discussions with /family. VTE Prophylaxis: Heparin drip. Medication Reconciliation: Reviewed using EMR Current living situation: Home Expected Disposition: TBD Estimated discharge date: TBD Medically Ready for Discharge: almost Discussed with at bedside 07/09/25 Subjective: Patient seen and evaluated at bedside this morning on 07/12/25. Resting in bed. Reviewed chart. Hb 8.5. Platelets 148k. Monitor for toxicity while on IV antibiotics. No right hip infection. Secure chatted with Nephrology, ID regarding disposition. Physical Exam: BP 120/77 (BP Location: Right arm, Patient Position: Lying) Pulse 73 Temp 97.6 F (36.4 C) (Oral) Resp 18 Ht 5' Wt 86.7 kg (191 lb 2.2 oz) SpO2 96% BMI 37.33 kg/m General: NAD Eyes: Sclera clear ENT: Neck supple. Cardiovascular: Regular rate, no murmur Respiratory: Clear to auscultation, symmetric air entry. Unlabored on 2L NC. Gastrointestinal: Soft, nondistended, nontender. Positive bowel sounds Genitourinary: No suprapubic tenderness Musculoskeletal: R great toe amputated Skin: Warm, dry. Scattered bruises/wounds to BLE Neuro: awake, alert. Generalized weakness. Psych: Calm and cooperative Current Medications: atorvastatin 10 mg Oral Nightly famotidine 20 mg Oral Nightly hydrALAZINE 10 mg Oral Q8H YOLI lispro insulin 0-15 Units Subcutaneous at bedtime insulin lispro 0-30 Units Subcutaneous TID AC levothyroxine 112 mcg Oral Daily lidocaine 2 patch Transdermal Daily melatonin 5 mg Oral Nightly mirtazapine 7.5 mg Oral Nightly QUEtiapine 25 mg Oral Nightly senna-docusate 1 tablet Oral BID sodium chloride (PF) 10 mL Intracatheter Q8H YOLI sodium chloride (PF) 5 mL Intravenous Q8H YOLI vancomycin 750 mg Intravenous Once vancomycin per pharmacy 1 each Intravenous as indicated by pharmacokinetics Labs, Imaging and Studies reviewed: Results from last 7 days Lab Units 07/13/2542607/12/25 0049 07/11/25 0412 WBC K/mcL 5.61 6.26 7.32 HGB g/dL 8.5* 8.4* 8.8* HCT % 26.6* 26.7* 27.8* PLT K/mcL 148* 139* 171 Results from last 7 days Lab Units 07/13/25 04207/12/25 0049 07/11/25 0412 SODIUM mmol/L 140 137 138 POTASSIUM mmol/L 3.9 4.3 4.1 CHLORIDE mmol/L 102 100 100 BICARB mmol/L 26 27 26 BUN mg/dL 41* 25 27* CREATININE mg/dL 4.29* 3.53* 4.01* EGFR mL/min/1.73 m2 10* 13* 11* GLUCOSE mg/dL 80 96 79 CALCIUM mg/dL 8.7 8.2* 8.8 PHOSPHORUS mg/dL 4.0 3.4 4.1 Results from last 7 days Lab Units 07/10/25 0829 INR 1.2* NEPHROLOGY PROGRESS NOTE [facility] Patient Name: Misael Medina MR#: [id number] : 1950 Admit Date: [id number] Physicians: Donal Will MD (Family); Saeed Zelaya MD (Referring) Attending: Physicians, [facility]* Reason for Consultation/History of Present Illness Patient is a 75yo female with history of JOSUE on CKD III secondary to ATN requiring HD, HFrEF, HTN, Type II DM, hypothyroidism, and morbid obesity. She initially presented to [facility] on 06/25/25 after a mechanical fall with LOC. Her course was complicated by acute respiratory failure requiring intubation (06/25) and MRSA bacteremia requiring perm cath removal for line holiday, and bradycardia. She was transferred to [facility] 06/28/25 for further management We are asked to manage dialysis. Assessment and Plan: 1) JOSUE on CKD III-->likely now ESRD -Started HD in March 2025 -Bx proven ATN (unclear circumstances) -TTS at [facility] Jane with Dr. Leon -R chest perm cath removed [facility] (06/26) d/t MRSA bacteremia -Unclear last HD [facility] -EDW 96.3kg -Appreciate ICU team's assistance with L femoral temp line placement 06/30 -[facility] 07/01-07/03; transitioned to iHD 07/06 -Ran 2h 25min 07/11treatment terminated early d/t poor temp line function -Continue MWF schedule with next treatment 07/13 via new RIJ perm cath, placed 07/11; temp line removed 07/12. Will plan to keep her on this schedule d/t facility placement on discharge 2) Acute hypoxemic respiratory failure, improved -Intubated at OSH [facility]; extubated 03/03 -CXR on admission with small bilateral effusions, mild vascular congestion -Volume removal with ELEVATOR CONSTRUCTOR; stopped Lasix 07/08 d/t poor recent UO -Further care per primary 3) MRSA bacteremia -Blood cx positive at OSH; thought secondary to perm cath (now removed); repeat cx positive x2 06/29 and again 07/02. 07/04 and 07/07 cx negative -DESTIN 06/29 with EF 20-25%, mod-severely reduced RV function, mild-mod , mod MR, no pericardial effusion, 0.5 x 2.7 cm mobile mass appears to be attached to the wall of the SVC 2cm from RA interface -MRI brain non-acute, but lumbar MRI with likely developing discitis osteomyelitis at the L3-L4 level with associated epidural phlegmon extending superiorly and inferiorly from the disc space resulting in at least moderate spinal canal stenosis at this level. -Nsx consulted; no plan for surgical intervention -ID following; previously on Dapto/Ceftaroline, now on Vancomycin with plan to continue with HD through 08/29/25 followed by PO suppression with doxycycline 4) Shock, resolved -Components of septic and cardiogenic shock in setting of chronic HFrEF -Home antihypertensive medications on hold -On Isopril from OSH, previously on low dose Dobutamine -Abx as above 5) Secondary hyperparathyroidism -Does not appear that she was on a binder [facility]IND [facility]OOKER -OK for calcium replacement per ERP 6) Anemia of CKD -Hgb nearly at goal of 10-11, SHANTI not indicated in setting of acute thrombi -IV iron contraindicated in setting of bacteremia 7) Acute metabolic encephalopathy, improved -In setting of infection/sedatives -CT head limited d/t dental hardware/motion degredation -Bacteremia tx as above -Fluid removal with ELEVATOR CONSTRUCTOR 8) Hypernatremia; resolved -Previously hyponatremic -Lasix discontinued as above -Adjusting UF/Na bath with HD 9) SVC thrombus, Acute RIJ thrombus -Noted on DESTIN as above -On heparin gtt 10) HTN -Hydralazine resumed 07/03; placed hold precautions 07/08 d/t soft BP -UF as able with HD Following Planning SNF with onsite HD on discharge Discussed with Dr. Rubio Urbina Seen in her room with night RN/PSA at bedside Patient denied complaints Discussed plan for dialysis; she denied questions/concerns Objective Vitals: BP 104/68 (BP Location: Right arm, Patient Position: Lying) Pulse 75 Temp 97.7 F (36.5 C) (Oral) Resp 16 Ht 5' Wt 86.8 kg (191 lb 5.8 oz) SpO2 97% BMI 37.37 kg/m Intake/Output last 3 shifts: Intake/Output Summary (Last 24 hours) at 07/13/2025 0553 Last data filed at 07/12/2025 1828 Gross per 24 hour Intake 237 ml Output 0 ml Net 237 ml I/O last 3 completed shifts: In: 837 [P.O.:337; Other:500] Out: 2235 [Other:2235] Wt Readings from Last 3 Encounters: 07/12/25 86.8 kg (191 lb 5.8 oz) 05/31/17 122 kg (269 lb) Physical Examination: General: Ill appearing elderly female. NAD Neuro: Awake, conversant. No myoclonus. Cardiac: Regular rate, +murmur Pulmonary: unlabored on LFNC Skin: No rashes/lesions on exposed skin Extremities: Minimal LE edema Access: R chest perm cath Results/Medications Reviewed: 07/13/25 5:53 AM: Laboratory, Microbiology, Pathology, Radiology, Cardiology, Medications and Transcriptions Scheduled Meds: [Held by provider] atorvastatin 10 mg Oral Nightly famotidine 20 mg Oral Nightly hydrALAZINE 10 mg Oral Q8H YOLI lispro insulin 0-15 Units Subcutaneous at bedtime insulin lispro 0-30 Units Subcutaneous TID AC levothyroxine 112 mcg Oral Daily lidocaine 2 patch Transdermal Daily melatonin 5 mg Oral Nightly mirtazapine 7.5 mg Oral Nightly QUEtiapine 25 mg Oral Nightly senna-docusate 1 tablet Oral BID sodium chloride (PF) 10 mL Intracatheter Q8H YOLI sodium chloride (PF) 5 mL Intravenous Q8H YOLI vancomycin per pharmacy 1 each Intravenous as indicated by pharmacokinetics Continuous Infusions: heparin infusion (weight based dosing) 14 Units/kg/hr (07/12/252107) heparin Laboratory: Results from last 7 days Lab Units 07/12/25 0049 07/11/252 07/10/25 0133 WBC K/mcL 6.26 7.32 7.62 HGB g/dL 8.4* 8.8* 8.8* HCT % 26.7* 27.8* 27.4* PLT K/mcL 139* 171 164 Results from last 7 days Lab Units 07/12/25 00407/11/252 07/10/25 0133 SODIUM mmol/L 137 138 138 POTASSIUM mmol/L 4.3 4.1 4.1 CHLORIDE mmol/L 100 100 101 BICARB mmol/L 27 26 27 BUN mg/dL 25 27* 21 CREATININE mg/dL 3.53* 4.01* 3.30* EGFR mL/min/1.73 m2 13* 11* 14* GLUCOSE mg/dL 96 79 80 CALCIUM mg/dL 8.2* 8.8 8.5 PHOSPHORUS mg/dL 3.4 4.1 3.3 Results from last 7 days Lab Units 07/10/25 0829 INR 1.2* Adrianne Mi PA-C [facility] Please use Secure Chat to contact (If I am not signed in, please contact the covering Stopper Maker) [phone] (office, after 5pm/weekends) Nutrition Care Follow Up Monitoring and Evaluation: PO intake was less than 50% at most meals. Supplement intake was >66% per patient Nutrition Diagnosis: Inadequate protein/energy intake/Swallow difficulty r/t inability to take PO In setting of mechanical ventilation (recent extubation 07/02) AEB NPO status still with recs for texture-modified oral diet/HOBBER/MBS results of today per mild oropharyngeal dysphagia/+penetration/no aspiration) with current intake inadequate to meet estimated protein/energy intake- Not Resolved/Active Nutrition Intervention/Recommendations: Diet Order: Continue diet as ordered. ONS: Modify medical food supplement.Gelatein BID, and Boost Glucose with Lunch Nutrition Prescription: Diet: Oral nutrition supplements Gelatein Plus; Gelatein Plus Chairez 3 times daily with meals Diet Therapeutic; Renal, Cardiac, Food Consistency; Pureed/NDD1 Nutrition Goals: PO intake >75% most meals and supplements Start Date:07/12/2025 Expected End Date:07/18/2025 Estimated Needs: Estimated Energy Needs Total Energy Estimated Needs: 3362-9904 kcals/day Method for Estimating Needs: 22-25 kcals/kg IBW/day (IBW 57.8 kg for BMI 24.9kgm2) Total Protein Estimated Needs: 69-116 gm/day Method for Estimating Needs: 1.2-2.0 gm/kg IBW/day Nutrition Education: no needs/will monitor for needs Assessment: Pertinent Clinical Information: IR to place Permcath. Pt/family comments: Pt reports fair appetite. Pt reports consuming 2 gelatein per day, and was consuming a boost during assessment. Pt states boost is okay but willing to drink it. No nausea/vomiting/constipation/diar marilu/abdominal pain per pt interview. Current ht:5' Current wt:.86.8 kg (191 lb 5.8 oz) Body mass index is 37.37 kg/m . BMI Classification: Class II Obesity (35-39.9) Wt hx: Wt Readings from Last 10 Encounters: 07/12/25 86.8 kg (191 lb 5.8 oz) 05/31/17 122 kg (269 lb) Recent intake: 07/11, 50-75% 0-25% 07/10, 0-25% 07/09, 75-100% per flowsheet - Current intake likely does not meet estimated needs. Appetite: poor Barriers to adequate nutrition intake: Poor appetite Fluid Status: +1 pitting edema RLE Skin Integrity: incision cervical Right anterior GI Function (per nursing flowsheet): Abdomen Inspection: Rounded Bowel Sounds (All Quadrants): Active Last BM Date: 07/10/25 Passing Flatus: Yes GI Symptoms: None Labs: Recent Labs 07/10/25 0133 07/11/25 0412 07/12/25 0049 NA 138 138 137 K 4.1 4.1 4.3 BICARB CL 101 100 100 GLUCOSE 80 79 96 BUN 21 27* 25 CREATININE 3.30* 4.01* 3.53* MG 1.8 1.9 1.8 PHOS 3.3 4.1 3.4 Recent Labs 07/09/25 1638 07/09/25 2056 07/10/25 0837 07/10/25 1220 07/10/25 1641 07/10/25 2108 07/11/25 1131 07/11/25 1200 07/11/25 1636 07/11/25 2155 POCGLU 98 100* 86 100* 94 102* 71 96 118* 109* Lab Results Component Value Date HGBA1C 6.6 (H) 06/28/2025 Scheduled Meds: [Held by provider] atorvastatin 10 mg Oral Nightly ceftaroline (TEFLARO) IVPB 200 mg Intravenous Q8H DAPTOmycin (CUBICIN) IV 10 mg/kg (Adjusted) Intravenous Q48H famotidine 20 mg Oral Nightly hydrALAZINE 10 mg Oral Q8H YOLI lispro insulin 0-15 Units Subcutaneous at bedtime insulin lispro 0-30 Units Subcutaneous TID AC levothyroxine 112 mcg Oral Daily lidocaine 2 patch Transdermal Daily melatonin 5 mg Oral Nightly mirtazapine 7.5 mg Oral Nightly QUEtiapine 25 mg Oral Nightly senna-docusate 1 tablet Oral BID sodium chloride (PF) 10 mL Intracatheter Q8H YOLI sodium chloride (PF) 5 mL Intravenous Q8H YOLI Continuous Infusions: heparin infusion (weight based dosing) 14 Units/kg/hr (07/12/25 0205) heparin Assessed By: Tyrell Hogue RD, LD Office PHARMACOTHERAPY NOTE: Antimicrobial Therapy Initiation Assessment / Plan: Misael Medina is a 75 y.o. female initiated on antimicrobial therapy for bacteremia. Patient will be intermittently dosed with initial dose of Vancomycin 1750mg Vancomycin goal pre-dialysis level is 18-24 mcg/mL. Will plan to check vancomycin serum level 07/13/25. Pharmacy will continue to follow, monitor serum creatinine levels and urine output (if available) daily, order levels, and make adjustments as clinically appropriate. Please call pharmacy with questions. Other antimicrobial regimens: vancomycin Subjective/Objective: Ht Readings from Last 1 Encounters: 06/28/25 5' (152.4 cm) Wt Readings from Last 1 Encounters: 07/12/25 86.8 kg (191 lb 5.8 oz) [place] body weight: 45.5 kg (100 lb 4.9 oz) Adjusted ideal body weight: 62 kg (136 lb 11.7 oz) Labs include: Recent Labs 07/12/25 0049 WBC 6.26 Recent Labs 07/12/25 0049 Creatinine 3.53* Estimated Creatinine Clearance: 9.9 mL/min (A) (by C-G formula based on SCr of 3.53 mg/dL (H)). Patient Tmax (last 24 hours): 98.6 F Micro: Most recent BC - no growth after 5 days Pharmacist: Gaye Darling RPh,PharmD Contact Number: [phone] INFECTIOUS DISEASES DAILY PROGRESS NOTE Patient Name: Misael Medina MR #: [id number] Date of Service: 07/12/2025 Impression/Recommendations: 1) MRSA bacteremia 2) shock 3) ESRD/CKD recently on HD 4) h/o aortic stenosis 5) SVC thrombus 6) infected dialysis catheter 7) DM2 8) L3-4 discitis/osteomyelitis and epidural phlegmon 9) right hip pain, s/p R ARMIDA Patient with persistent MRSA bacteremia 06/25-06/27 per OSH records, HD catheter removed 06/26 with purulence at site. Ongoing instability requiring transfer. - will change back to vancomycin dosed per pharmacy with HD as blood cultures have finalized negative - blood cx 06/27 positive. Blood cx 06/29 positive, blood cx 07/02 2 of 2 MRSA. Blood cx 07/04 and 07/07 negative. - pt had HD catheter removed 06/26, there was still infected-looking fluid coming from site on arrival to [facility]. No obvious abscess on CT chest. Improved. - DESTIN 06/29 with SVC thrombus, no obvious other vegetation - nephrology following, now on iHD. New HD line placed 07/11 - monitor for joint/back pain. MRI lumbar spine finally able to be obtained, read as L3-L4 discitis/osteomyelitis, epidural phlegmon; neurosurgery consulted, planning conservative management - abnormal head CT 06/30, MRI brain limited by motion, no obvious infarct - some purulence of left toe initially, d/w wound care. XR reviewed, consider podiatry evaluation if worsens. Now dry and scabbed. - pt reported right hip pain, XR no mechanical issue. ESR/CRP elevated as expected (ESR 52, CRP 103). Fairly good ROM passively 07/10. Would ask ortho to evaluate, may need advanced imaging +/- aspiration if any concerns. Overall lower suspicion of PJI but pt with prolonged bacteremia. - further recommendations pending clinical course. Prognosis appears poor half-way. Palliative care team followed. As aggressive care continues, likely 8 weeks of IV vancomycin at HD through 08/29/25 followed by PO suppression with doxycycline. D/w [employer]. Perpetual Assessment: Misael Medina is a 75 y.o. female on hospital day 14 with MRSA bacteremia. Subjective/Objective: Subjective: Patient was seen and examined in follow-up. Afebrile. States her hip and back hurt when she transferred to chair earlier. Review of Systems: The following system(s) were reviewed and negative. Pertinent positive and negative findings are noted in the HPI. [x] Const [] Eyes [] ENT [x] Resp [x] CV [x] GI [] [] Neuro [x] Musc [x] Skin [] Psych [] Endo [] Allergy [] Heme/Lymph [] Unable to obtain due to clinical status Physical Examination: BP 120/78 (BP Location: Right arm, Patient Position: Lying) Pulse 67 Temp 97.3 F (36.3 C) (Oral) Resp 18 Ht 5' Wt 86.8 kg (191 lb 5.8 oz) SpO2 95% BMI 37.37 kg/m General: NAD HEENT: Head: NCAT. Eyes: closed. OP dry mm Neck: Symmetrical Respiratory: Diminished, scattered coarse Cardiovascular: Distant S1S2 Abdomen: Soft; obese, nontender, nondistended Extremities: + edema Musculoskeletal: Left toe with small wound Skin: No diffuse rash, pale : Jimenez Lines: R chest HD catheter Laboratory and Additional Data Reviewed: Laboratory 07/12/25 8:35 AM Microbiology 07/12/25 8:35 AM Pathology 07/12/25 8:35 AM Radiology 07/12/25 8:35 AM Cardiology 07/12/25 8:35 AM Medications 07/12/25 8:35 AM Transcriptions 07/12/25 8:35 AM Current medications: [Held by provider] atorvastatin 10 mg Oral Nightly ceftaroline (TEFLARO) IVPB 200 mg Intravenous Q8H DAPTOmycin (CUBICIN) IV 10 mg/kg (Adjusted) Intravenous Q48H famotidine 20 mg Oral Nightly hydrALAZINE 10 mg Oral Q8H YOLI lispro insulin 0-15 Units Subcutaneous at bedtime insulin lispro 0-30 Units Subcutaneous TID AC levothyroxine 112 mcg Oral Daily lidocaine 2 patch Transdermal Daily melatonin 5 mg Oral Nightly mirtazapine 7.5 mg Oral Nightly QUEtiapine 25 mg Oral Nightly senna-docusate 1 tablet Oral BID sodium chloride (PF) 10 mL Intracatheter Q8H YOLI sodium chloride (PF) 5 mL Intravenous Q8H YOLI Results from last 7 days Lab Units 07/12/25 00407/11/2541107/10/25 013 WBC K/mcL 6.26 7.32 7.62 HGB g/dL 8.4* 8.8* 8.8* HCT % 26.7* 27.8* 27.4* PLT K/mcL 139* 171 164 Results from last 7 days Lab Units 07/12/25 0049 07/11/2541107/10/25 0133 SODIUM mmol/L 137 138 138 POTASSIUM mmol/L 4.3 4.1 4.1 CHLORIDE mmol/L 100 100 101 BUN mg/dL 25 27* 21 CREATININE mg/dL 3.53* 4.01* 3.30* GLUCOSE mg/dL 96 79 80 CALCIUM mg/dL 8.2* 8.8 8.5 Comments: WBC 6.26, Cr 3.53 LFTs reviewed [facility] micro lab: Blood cx 06/25 MRSA Blood cx 06/26 MRSA Blood cx 06/27 (from central line) MRSA Cath tip 06/26 staph aureus (presumed MRSA) Pleural fluid 06/28 final negative Sputum cx 06/25 normal nadia Urine cx 06/25 yeast (not albicans) and GNB Wound cx 03/19/25 (unknown source) staph epi, MRSA, E faecalis, corynebacterium. Wound cx 03/16/25 (unknown source) E casseliflavus, E avium, GPR Blood cx RMH 06/29 2 of 2 MRSA, vancomycin DELIA 1.0 Blood cx 07/02 2 of 2 MRSA Blood cx 07/04 negative Blood cx 07/07 negative CTPA, A/P report Jane reviewed TTE report reviewed DESTIN 06/29: 1. Left ventricular systolic function is severely reduced, with ejection fraction estimated at 20 +/- 5%. 2. Right ventricular systolic function is moderate to severely reduced. 3. There is no thrombus visualized in the left atrial appendage. 4. There is mild to moderate aortic valve stenosis with valve area of 1.5 cm2. 5. There is moderate mitral valve regurgitation. 6. There is no pericardial effusion. 7. A 0.5 x 2.7 cm, mobile mass appears to be attached to the wall of the SVC approximately 2 cm from the right atrial interface. This finding is consistent with thrombus. Associated infection cannot be excluded. CT CAP 06/30: 1. Appropriately positioned ETT and gastric tube. 2. Cardiomegaly, pulmonary edema and bilateral pleural effusions suggesting decompensated CHF. 3. Heavy three-vessel coronary artery calcifications. 4. Complete atelectasis of the bilateral lower lobes adjacent to the large effusions. 5. Common bile duct measuring 10 mm. This may represent reservoir effect related to patient's age and history of cholecystectomy. 6. Ascites in all 4 quadrants and anasarca in the body wall compatible with volume overload. CT head 06/30: 1. Evaluation is limited due to extensive streaking artifact from dental hardware as well as patient motion. Ill-defined hypodensities throughout the bilateral cerebellar hemispheres are nonspecific and could be artifactual. Consider MRI brain if clinically warranted. 2. No gross intracranial hemorrhage. MRI lumbar spine without contrast 07/07: 1. Likely developing discitis osteomyelitis at the L3-L4 level with associated epidural phlegmon extending superiorly and inferiorly from the disc space resulting in at least moderate spinal canal stenosis at this level. 2. No acute fracture. Likely chronic S1 superior endplate fracture. 3. Moderate to severe multilevel degenerative disc disease as described above. MRI brain without contrast 07/07: Evaluation is limited due to patient motion artifact. No gross acute intracranial process. XR right hip report reviewed Assessment Detail: The total time spent for this visit was 35 minutes. Greater than 50% of the time was spent in counseling and coordination of care regarding MRSA bacteremia, SVC thrombus. Toño Stewart MD [facility] - Infectious Diseases Office/answering service [phone] 07/12/2025 8:35 AM NEUROSURGERY PROGRESS NOTE: Misael Medina 1950 [id number] Assessment/Plan: L3-4 discitis osteomyelitis with associated epidural phlegmon -No motor or sensory deficits noted. -No neurosurgical intervention at this time. -Antibiotics per ID recommendations Subjective: Denies pain this am Physical Exam: Neuro: Awake and alert, oriented to name, place, and time. Lumbar: Motor strength 5/5 bilateral HF, KF, KE, DF, PF, EHL. Sensation intact and equal throughout to light touch and pain Vital Signs: Current: BP 120/78 (BP Location: Right arm, Patient Position: Lying) Pulse 67 Temp 97.3 F (36.3 C) (Oral) Resp 18 Ht 5' Wt 86.8 kg (191 lb 5.8 oz) SpO2 95% BMI 37.37 kg/m Last 24 hours: Temp: [97.3 F (36.3 C)-98.3 F (36.8 C)] 97.3 F (36.3 C) Heart Rate: [60-83] 67 Resp: [16-20] 18 BP: (90-128)/(48-78) 120/78 Intake/Output Summary (Last 24 hours) at 07/12/2025 0831 Last data filed at 07/12/2025 0548 Gross per 24 hour Intake 100 ml Output 0 ml Net 100 ml Labs: Lab Results Component Value Date NA 137 07/12/2025 K 4.3 07/12/2025 CL 100 07/12/2025 Lab Results Component Value Date WBC 6.26 07/12/2025 HGB 8.4 (L) 07/12/2025 HCT 26.7 (L) 07/12/2025 MCV 89.9 07/12/2025 PLT 139 (L) 07/12/2025 Lab Results Component Value Date INR 1.2 (H) 07/10/2025 PROTIME 15.7 (H) 07/10/2025 Completed by: Lauren Ramirez CNP on 07/12/25, 8:31 AM Cosigned by Madhu Cai MD at 07/13/2025 4:39 PM EDT Associated attestation - Madhu Cai MD - 07/13/2025 4:39 PM EDT Patient seen and examined myself. I agree with the exam, assessment and plan as described below. Relevant labs and diagnostic studies reviewed. Pt seen on 07/13. Reports no numbness, weakness, or radiating leg pain. Remains on antibiotics. Conservative management currently. Physical Therapy PHYSICAL THERAPY TREATMENT NOTE Skilled Therapy Needs After Discharge Anticipate Resolution of Current Assessment Limitations Including: Pain, Delirium, Mechanical Barriers, Social Support Are medical doctor md/medical director Therapy Services Needed After Discharge: Yes Intensity of medical doctor md/medical director Therapy: Up to 5 days per week Anticipated Duration of medical doctor md/medical director Therapy: Duration 10 - 30 days PT DME Recommendation: To be determined at next level of care Rehab Potential: Good, For goals Outcomes Measures Prior Function - Basic Mobility Raw Score: 24 Points Prior Function - Basic Mobility % Impaired: 0% AM-PAC Basic Mobility Raw Score: 9 Points AM-PAC Basic Mobility % Impaired: 77.59% Therapy Precautions General Rehab Precautions: Fall risk (3L O2) Balance Sitting Balance - Static: Stand by assist, Supervision Sitting Balance - Dynamic: Contact guard assist Sitting Balance Treatment: weight shifting anterior, weight shifting left, weight shifting right Skilled Intervention Provided: verbal cues, neuromuscular re-education, patient education For: initiation of tasks, self-monitoring during activity, sequencing of movement, trunk control, weight shifting Resulting in: improved activity tolerance, increased upright tolerance for functional tasks Standing Balance - Static: Contact guard assist, with device Outboard Motor Assembler - Standing Static: stand assist device (non-powered) Standing Balance Treatment: maintaining midline, postural re-education Skilled Intervention Provided: verbal cues, facilitation, patient education, neuromuscular re-education For: LE positioning, UE positioning, initiation of tasks, safe use of AD and/or equipment, self-monitoring during activity, sequencing of movement, trunk control Resulting in: improved activity tolerance, increased upright tolerance for functional tasks Bed Mobility Rolling: Moderate assist, Head of bed elevated Supine to Sit: Moderate assist, Head of bed elevated Outboard Motor Assembler: bedrails, patient slide sheet / friction-reducing device Skilled Intervention Provided: verbal cues, facilitation, monitoring patient response with activity, provided step by step instructions, patient education For: LE positioning, UE positioning, initiation of task, safe use of bedrails and/or equipment, safety during functional tasks, self-monitoring during activity, sequencing of movement, weight shifting Resulting in: improved activity tolerance, increased initiation in mobility task(s), increased participation in mobility task(s), increased upright tolerance for functional tasks Transfers Sit to Stand: Moderate assist (elevated bed height) Bed to Chair: Dependent Outboard Motor Assembler: stand assist device (non-powered) Skilled Intervention Provided: verbal cues, facilitation, monitoring patient response with activity, provided step by step instructions, patient education For: UE positioning, initiation of task, self-monitoring during activity, safety during functional tasks, safe use of AD and/or equipment, sequencing of movement, weight shifting Resulting in: improved activity tolerance, increased upright tolerance for functional tasks Additional Treatment Details Pt demonstrates increased difficulty with scooting requiring assist via sheet to scoot hips back in chair Home Living Obtained Home Living and PLOF info from: Patient Lives With: Spouse Type of Home: House Home Layout: Two level, Bed on main level Steps to enter home: Yes Rails to enter home: 1 rail Number of stairs to enter home: 4 Mobility Equipment: (Does not use any assistive devices) Prior Level of Function Level of [place] - Transfers/Ambulation/Mobility: Independent with functional transfers, Independent with household ambulation Level of [place] - ADLs: Independent Level of [place] - Homemaking: Independent Driving: Patient drives For complete objective data, detailed plan of care and patient education refer to: PT Evaluation flowsheet, PT Evaluation and Treatment flowsheet, PT Treatment flowsheet, patient Plan of Care, Plan of Care progress note, and Patient Education. This note stands as the current Discharge Summary upon patient discharge from the hospital or completion of Physical Therapy Plan of Care. Cosigned by Radha Luna, PT at 07/12/2025 12:25 PM EDT [facility] 07/12/2025 Misael Medina 1950 [id number] Assessment/Plan: Misael Medina is a 75 year old female with a history of HFrEF, ESRD, T2DM, Hypertension, Hyperlipidemia, who presented to [facility] on 06/25/25 after suffering a mechanical fall with loss of consciousness. Her course was complicated by respiratory failure requiring intubation on 06/25/25, MRSA bacteremia requiring HD line removal, and symptomatic bradycardia. Patient transferred to [facility] 06/28/25 for management of cardiogenic and septic shock. Resumed iHD 06/30. Transition to CVV 07/01/25 for ongoing fluid removal. Extubated 07/02/25. [facility] consulted for medical management out of ICU. Multifactorial Shock: multifactorial, but primarily distributive/septic shock from MRSA bacteremia, in patient with known heart failure. Required pressor support on admission. Dobutamine weaned off 07/01/25, vasopressors off 07/02/25. Antibiotics as mentioned. Improved. MRSA Bacteremia: persistent MRSA bacteremia 06/25/25-06/27/25 per OSH records, HD catheter removed 06/26/25 with purulence at site. DESTIN 06/29/25 with SVC thrombus, no obvious other vegetation. Blood culture 06/27/25 +MRSA. Repeat blood culture 06/29/25 and 07/02/25 both +MRSA. Right femoral CVC removed 07/02/25. Blood culture 07/04/25 NGTD. MRI brain non acute and L-spine developing discitis osteomyelitis at the L3-L4 level with associated epidural phlegmon extending superiorly and inferiorly from the disc space resulting in at least moderate spinal canal stenosis at this level. Continued Teflaro and Dapto. Blood culture drawn 07/07/25 NGTD ID following. Per ID, 8 weeks of IV Vancomycin at Hemodialysis through 08/29/25 followed by PO suppression with Doxycycline. Discitis/Osteomyelitis: seen on MRI L spine. Neurosurgery evaluated; poor surgical candidate, recommended medical management at this time. Continued on IV antibiotics. Abnormal CT head: 06/30/25 CT head with Ill-defined hypodensities throughout the bilateral cerebellar hemispheres are nonspecific and could be artifactual. MRI brain non acute. Fourth Metatarsal Wound: s/p XR L foot 07/02/25 with relatively large superficial subcutaneous wound involving the heel with subcutaneous edematous changes about the distal calf, ankle and foot overall noted. ID following as above. Wound care. Consider Podiatry evaluation if worsens Acute Hypoxic Respiratory Failure: in setting of shock and volume overload. Requiring intubation 06/25/25. CXR (06/29/25) with pulmonary edema with bilateral effusions. Extubated 07/03/25 to LFNC. On 2L NC 07/05/25. Volume management with HD/Lasix. Wean O2 as tolerated. On 2 L NC 07/07/25 Acute on Chronic HFrEF: with baseline EF of 35%, down to 20% here in setting of stress/shock state. Holding all home GDMT given borderline blood pressures. Continued low-dose Hydralazine and Lasix. Volume management with HD. ESRD: s/p CRRT, transitioned to iHD. Perm cath placement by VIR 07/11/25. Nephrology following. Acute Metabolic Encephalopathy: in the setting of above. CT Head (06/30/25) with hypodensities bilateral cerebellar hemispheres. Consider MRI brain when able. Delirium precautions. PT/OT/HOBBER as able. Improved. SVC Thrombus: noted on DESTIN as above with 0.2 x 2.7cm mobile mass attached to the SVC wall. Heparin drip in place. T2DM: per history. Held home oral regimen. SSI in place. Monitor. Anxiety/Depression: per history. Continue home Remeron and Seroquel. Right Hip Pain: patient reported to ID team 07/10/25. X-ray right hip 07/10/25 non acute. Follow up with Ortho as outpatient. ID recommended consulting Ortho while inpatient, consulted 07/12/25. Class 2 Obesity: BMI 37. Lifestyle modifications. Code status: Full -- Palliative team following for Goals of Care discussions with /family. VTE Prophylaxis: Heparin drip. Medication Reconciliation: Reviewed using EMR Current living situation: Home Expected Disposition: TBD Estimated discharge date: TBD Medically Ready for Discharge: No Discussed with at bedside 07/09/25 Subjective: Patient seen and evaluated at bedside this morning on 07/12/25. Resting in bed. Reviewed chart. Cr 4.01->3.53, Hb 8.8->8.4. Monitor for toxicity while on IV antibiotics, Seroquel. Secure chatted with Dr. Stewart (ID) regarding Ortho consult. Physical Exam: BP 120/78 (BP Location: Right arm, Patient Position: Lying) Pulse 67 Temp 97.3 F (36.3 C) (Oral) Resp 18 Ht 5' Wt 86.8 kg (191 lb 5.8 oz) SpO2 95% BMI 37.37 kg/m General: NAD Eyes: Sclera clear ENT: Neck supple. Cardiovascular: Regular rate, no murmur Respiratory: Clear to auscultation, symmetric air entry. Unlabored on 2L NC. Gastrointestinal: Soft, nondistended, nontender. Positive bowel sounds Genitourinary: No suprapubic tenderness Musculoskeletal: R great toe amputated Skin: Warm, dry. Scattered bruises/wounds to BLE Neuro: awake, alert. Generalized weakness. Psych: Calm and cooperative Current Medications: [Held by provider] atorvastatin 10 mg Oral Nightly famotidine 20 mg Oral Nightly hydrALAZINE 10 mg Oral Q8H YOLI lispro insulin 0-15 Units Subcutaneous at bedtime insulin lispro 0-30 Units Subcutaneous TID AC levothyroxine 112 mcg Oral Daily lidocaine 2 patch Transdermal Daily melatonin 5 mg Oral Nightly mirtazapine 7.5 mg Oral Nightly QUEtiapine 25 mg Oral Nightly senna-docusate 1 tablet Oral BID sodium chloride (PF) 10 mL Intracatheter Q8H YOLI sodium chloride (PF) 5 mL Intravenous Q8H YOLI vancomycin 1,750 mg Intravenous Once vancomycin per pharmacy 1 each Intravenous as indicated by pharmacokinetics Labs, Imaging and Studies reviewed: Results from last 7 days Lab Units 07/12/25 0049 07/11/25 0412 07/10/25 0133 WBC K/mcL 6.26 7.32 7.62 HGB g/dL 8.4* 8.8* 8.8* HCT % 26.7* 27.8* 27.4* PLT K/mcL 139* 171 164 Results from last 7 days Lab Units 07/12/25 0049 07/11/252 07/10/25 0133 SODIUM mmol/L 137 138 138 POTASSIUM mmol/L 4.3 4.1 4.1 CHLORIDE mmol/L 100 100 101 BICARB mmol/L 27 26 27 BUN mg/dL 25 27* 21 CREATININE mg/dL 3.53* 4.01* 3.30* EGFR mL/min/1.73 m2 13* 11* 14* GLUCOSE mg/dL 96 79 80 CALCIUM mg/dL 8.2* 8.8 8.5 PHOSPHORUS mg/dL 3.4 4.1 3.3 Results from last 7 days Lab Units 07/10/25 0829 INR 1.2* NEPHROLOGY PROGRESS NOTE [facility] Patient Name: Misael Medina MR#: [id number] : 1950 Admit Date: [id number] Physicians: Donal Will MD (Family); Saeed Zelaya MD (Referring) Attending: Physicians, [facility]* Reason for Consultation/History of Present Illness Patient is a 75yo female with history of JOSUE on CKD III secondary to ATN requiring HD, HFrEF, HTN, Type II DM, hypothyroidism, and morbid obesity. She initially presented to [facility] on 06/25/25 after a mechanical fall with LOC. Her course was complicated by acute respiratory failure requiring intubation (06/25) and MRSA bacteremia requiring perm cath removal for line holiday, and bradycardia. She was transferred to [facility] 06/28/25 for further management We are asked to manage dialysis. Assessment and Plan: 1) JOSUE on CKD III-->likely now ESRD -Started HD in March 2025 -Bx proven ATN (unclear circumstances) -TTS at [facility] with Dr. Leon -R chest perm cath removed [facility] (06/26) d/t MRSA bacteremia -Unclear last HD BLIND [facility]OOK[facility] -EDW 96.3kg -Appreciate ICU team's assistance with L femoral temp line placement 06/30 -CVVH 07/01-07/03; transitioned to iHD 07/06 -Ran 2h 25min 07/11treatment terminated early d/t poor temp line function -Continue MWF schedule with next treatment 07/13 via new RIJ perm cath, placed 07/11 -L femoral temp line can be removed by floor staff today; order placed 2) Acute hypoxemic respiratory failure, improved -Intubated at OSH [facility]IND HOOKER; extubated 03/03 -CXR on admission with small bilateral effusions, mild vascular congestion -Volume removal with ELEVATOR CONSTRUCTOR; stopped Lasix 07/08 d/t poor recent UO -Further care per primary 3) MRSA bacteremia -Blood cx positive at OSH; thought secondary to perm cath (now removed); repeat cx positive x2 06/29 and again 07/02. 07/04 and 07/07 cx negative -DESTIN 06/29 with EF 20-25%, mod-severely reduced RV function, mild-mod , mod MR, no pericardial effusion, 0.5 x 2.7 cm mobile mass appears to be attached to the wall of the SVC 2cm from RA interface -MRI brain non-acute, but lumbar MRI with likely developing discitis osteomyelitis at the L3-L4 level with associated epidural phlegmon extending superiorly and inferiorly from the disc space resulting in at least moderate spinal canal stenosis at this level. -Nsx consulted; no plan for surgical intervention -ID following; previously on Dapto/Ceftaroline, now on Vancomycin with plan to continue with HD through 08/29/25 followed by PO suppression with doxycycline 4) Shock, resolved -Components of septic and cardiogenic shock in setting of chronic HFrEF -Home antihypertensive medications on hold -On Isopril from OSH, previously on low dose Dobutamine -Abx as above 5) Secondary hyperparathyroidism -Does not appear that she was on a binder BLIND HOOKER -OK for calcium replacement per ERP 6) Anemia of CKD -Hgb nearly at goal of 10-11, SHANTI not indicated in setting of acute thrombi -IV iron contraindicated in setting of bacteremia 7) Acute metabolic encephalopathy, improved -In setting of infection/sedatives -CT head limited d/t dental hardware/motion degredation -Bacteremia tx as above -Fluid removal with ELEVATOR CONSTRUCTOR 8) Hypernatremia; resolved -Previously hyponatremic -Lasix discontinued as above -Adjusting UF/Na bath with HD 9) SVC thrombus, Acute RIJ thrombus -Noted on DESTIN as above -On heparin gtt 10) HTN -Hydralazine resumed 07/03; placed hold precautions 07/08 d/t soft BP -UF as able with HD Following Planning SNF with onsite HD on discharge Will discuss with Dr. Bergeron Subjective Seen and examined in her room She was resting comfortably in bed; stated she slept well til everyone started waking her at 6am Only having a little pain at her new perm cath site Didn't remember having HD yesterday; denies SOB Discussed plan for HD tomorrow; she denied questions/concerns Objective Vitals: BP 110/71 (BP Location: Right arm, Patient Position: Lying) Pulse 74 Temp 97.8 F (36.6 C) (Oral) Resp 16 Ht 5' Wt 90.4 kg (199 lb 4.7 oz) SpO2 95% BMI 38.92 kg/m Intake/Output last 3 shifts: Intake/Output Summary (Last 24 hours) at 07/12/2025 0606 Last data filed at 07/11/2025 2122 Gross per 24 hour Intake 550 ml Output 2235 ml Net -1685 ml I/O last 3 completed shifts: In: 620 [P.O.:120; Other:500] Out: 2235 [Other:2235] Wt Readings from Last 3 Encounters: 07/09/25 90.4 kg (199 lb 4.7 oz) 05/31/17 122 kg (269 lb) Physical Examination: General: Ill appearing elderly female. NAD Neuro: Awake, conversant. No myoclonus. Cardiac: Regular rate, +murmur Pulmonary: unlabored on LFNC Skin: No rashes/lesions on exposed skin Extremities: Minimal LE edema Access: L femoral temp line; new R chest perm cath Results/Medications Reviewed: 07/12/25 6:06 AM: Laboratory, Microbiology, Pathology, Radiology, Cardiology, Medications and Transcriptions Scheduled Meds: [Held by provider] atorvastatin 10 mg Oral Nightly ceftaroline (TEFLARO) IVPB 200 mg Intravenous Q8H DAPTOmycin (CUBICIN) IV 10 mg/kg (Adjusted) Intravenous Q48H famotidine 20 mg Oral Nightly hydrALAZINE 10 mg Oral Q8H YOLI lispro insulin 0-15 Units Subcutaneous at bedtime insulin lispro 0-30 Units Subcutaneous TID AC levothyroxine 112 mcg Oral Daily lidocaine 2 patch Transdermal Daily melatonin 5 mg Oral Nightly mirtazapine 7.5 mg Oral Nightly QUEtiapine 25 mg Oral Nightly senna-docusate 1 tablet Oral BID sodium chloride (PF) 10 mL Intracatheter Q8H YOLI sodium chloride (PF) 5 mL Intravenous Q8H YOLI Continuous Infusions: heparin infusion (weight based dosing) 14 Units/kg/hr (07/12/25 0205) heparin Laboratory: Results from last 7 days Lab Units 07/12/25 0049 07/11/2541107/10/25 013 WBC K/mcL 6.26 7.32 7.62 HGB g/dL 8.4* 8.8* 8.8* HCT % 26.7* 27.8* 27.4* PLT K/mcL 139* 171 164 Results from last 7 days Lab Units 07/12/25 0049 07/11/252 07/10/25 0133 SODIUM mmol/L 137 138 138 POTASSIUM mmol/L 4.3 4.1 4.1 CHLORIDE mmol/L 100 100 101 BICARB mmol/L 27 26 27 BUN mg/dL 25 27* 21 CREATININE mg/dL 3.53* 4.01* 3.30* EGFR mL/min/1.73 m2 13* 11* 14* GLUCOSE mg/dL 96 79 80 CALCIUM mg/dL 8.2* 8.8 8.5 PHOSPHORUS mg/dL 3.4 4.1 3.3 Results from last 7 days Lab Units 07/10/25 0829 INR 1.2* Adrianne Mi PA-C [facility] Please use Secure Chat to contact (If I am not signed in, please contact the covering Stopper Maker) [phone] (office, after 5pm/weekends) INFECTIOUS DISEASES DAILY PROGRESS NOTE Patient Name: Misael Medina MR #: [id number] Date of Service: 07/11/2025 Impression/Recommendations: 1) MRSA bacteremia 2) shock 3) ESRD/CKD recently on HD 4) h/o aortic stenosis 5) SVC thrombus 6) infected dialysis catheter 7) DM2 8) L3-4 discitis/osteomyelitis and epidural phlegmon 9) right hip pain, s/p R ARMIDA Patient with persistent MRSA bacteremia 06/25-06/27 per OSH records, HD catheter removed 06/26 with purulence at site. Ongoing instability requiring transfer. - changed to daptomycin plus ceftaroline per pharmacy 07/02. CPK and LFTs reviewed, check at least weekly, CPK 32 07/05. Anticipate change back to vancomycin with HD eventually, likely when 07/07 bcx finalized negative. - blood cx 06/27 positive. Blood cx 06/29 positive, blood cx 07/02 2 of 2 MRSA. Blood cx 07/04 negative, blood cx 07/07 NGTD (checked in case there was skip phenomenon). - pt had HD catheter removed 06/26, there was still infected-looking fluid coming from site on arrival to [facility]. No obvious abscess on CT chest. Improved. - DESTIN 06/29 with SVC thrombus, no obvious other vegetation - nephrology following, now on iHD. New HD line placed 07/11 - monitor for joint/back pain. MRI lumbar spine finally able to be obtained, read as L3-L4 discitis/osteomyelitis, epidural phlegmon; neurosurgery consulted, planning conservative management - abnormal head CT 06/30, MRI brain limited by motion, no obvious infarct - some purulence of left toe initially, d/w wound care. XR reviewed, consider podiatry evaluation if worsens. Now dry and scabbed. - pt reported right hip pain, difficult to assess today, XR no mechanical issue. ESR/CRP elevated as expected. Fairly good ROM passively 07/10. If continues, low threshold for ortho to see as she has ARMIDA. - further recommendations pending clinical course. Prognosis appears poor. Palliative care team involved. As aggressive care continues, likely 8 weeks of IV vancomycin at HD through 08/29/25 followed by PO suppression with doxycycline. Perpetual Assessment: Misael Medina is a 75 y.o. female on hospital day 13 with MRSA bacteremia. Subjective/Objective: Subjective: Patient was seen and examined in follow-up. Afebrile. S/p HD attempt and HD line placement earlier, sleeping soundly. Review of Systems: The following system(s) were reviewed and negative. Pertinent positive and negative findings are noted in the HPI. [x] Const [] Eyes [] ENT [x] Resp [x] CV [x] GI [] [] Neuro [x] Musc [x] Skin [] Psych [] Endo [] Allergy [] Heme/Lymph [] Unable to obtain due to clinical status Physical Examination: BP 93/60 (BP Location: Right arm, Patient Position: Lying) Pulse 81 Temp 97.4 F (36.3 C) (Oral) Resp 18 Ht 5' Wt 90.4 kg (199 lb 4.7 oz) SpO2 (!) 79% BMI 38.92 kg/m General: NAD, sleeping HEENT: Head: NCAT. Eyes: closed. OP dry mm Neck: Symmetrical Prior HD catheter site bandaged, clean Respiratory: Diminished, scattered coarse Cardiovascular: Distant S1S2 Abdomen: Soft; obese, nontender, nondistended Extremities: + edema Musculoskeletal: Left toe with small wound Skin: No diffuse rash, pale : Jimenez Lines: R chest HD catheter Laboratory and Additional Data Reviewed: Laboratory 07/11/25 10:49 AM Microbiology 07/11/25 10:49 AM Pathology 07/11/25 10:49 AM Radiology 07/11/25 10:49 AM Cardiology 07/11/25 10:49 AM Medications 07/11/25 10:49 AM Transcriptions 07/11/25 10:49 AM Current medications: [Held by provider] atorvastatin 10 mg Oral Nightly ceftaroline (TEFLARO) IVPB 200 mg Intravenous Q8H DAPTOmycin (CUBICIN) IV 10 mg/kg (Adjusted) Intravenous Q48H famotidine 20 mg Oral Nightly hydrALAZINE 10 mg Oral Q8H YOLI lispro insulin 0-15 Units Subcutaneous at bedtime insulin lispro 0-30 Units Subcutaneous TID AC levothyroxine 112 mcg Oral Daily lidocaine 2 patch Transdermal Daily melatonin 5 mg Oral Nightly mirtazapine 7.5 mg Oral Nightly QUEtiapine 25 mg Oral Nightly senna-docusate 1 tablet Oral BID sodium chloride (PF) 10 mL Intracatheter Q8H YOLI sodium chloride (PF) 10-20 mL Intravenous Once in dialysis sodium chloride (PF) 5 mL Intravenous Q8H YOLI Results from last 7 days Lab Units 07/11/25 0412 07/10/25 0133 07/09/25 0411 WBC K/mcL 7.32 7.62 7.27 HGB g/dL 8.8* 8.8* 8.9* HCT % 27.8* 27.4* 29.0* PLT K/mcL 171 164 176 Results from last 7 days Lab Units 07/11/25 0412 07/10/25 0133 07/09/25 0411 SODIUM mmol/L 138 138 143 POTASSIUM mmol/L 4.1 4.1 4.3 CHLORIDE mmol/L 100 101 106 BUN mg/dL 27* 21 35* CREATININE mg/dL 4.01* 3.30* 4.16* GLUCOSE mg/dL 79 80 79 CALCIUM mg/dL 8.8 8.5 8.2* Comments: WBC 7.32, Cr 4.01 LFTs reviewed [facility] lab: Blood cx 06/25 MRSA Blood cx 06/26 MRSA Blood cx 06/27 (from central line) MRSA Cath tip 06/26 staph aureus (presumed MRSA) Pleural fluid 06/28 final negative Sputum cx 06/25 normal nadia Urine cx 06/25 yeast (not albicans) and GNB Wound cx 03/19/25 (unknown source) staph epi, MRSA, E faecalis, corynebacterium. Wound cx 03/16/25 (unknown source) E casseliflavus, E avium, GPR Blood cx [facility] 06/29 2 of 2 MRSA, vancomycin DELIA 1.0 Blood cx 07/02 2 of 2 MRSA Blood cx 07/04 negative Blood cx 07/07 NGTD CTPA, A/P report Jane reviewed TTE report reviewed DESTIN 06/29: 1. Left ventricular systolic function is severely reduced, with ejection fraction estimated at 20 +/- 5%. 2. Right ventricular systolic function is moderate to severely reduced. 3. There is no thrombus visualized in the left atrial appendage. 4. There is mild to moderate aortic valve stenosis with valve area of 1.5 cm2. 5. There is moderate mitral valve regurgitation. 6. There is no pericardial effusion. 7. A 0.5 x 2.7 cm, mobile mass appears to be attached to the wall of the SVC approximately 2 cm from the right atrial interface. This finding is consistent with thrombus. Associated infection cannot be excluded. CT CAP 06/30: 1. Appropriately positioned ETT and gastric tube. 2. Cardiomegaly, pulmonary edema and bilateral pleural effusions suggesting decompensated CHF. 3. Heavy three-vessel coronary artery calcifications. 4. Complete atelectasis of the bilateral lower lobes adjacent to the large effusions. 5. Common bile duct measuring 10 mm. This may represent reservoir effect related to patient's age and history of cholecystectomy. 6. Ascites in all 4 quadrants and anasarca in the body wall compatible with volume overload. CT head 06/30: 1. Evaluation is limited due to extensive streaking artifact from dental hardware as well as patient motion. Ill-defined hypodensities throughout the bilateral cerebellar hemispheres are nonspecific and could be artifactual. Consider MRI brain if clinically warranted. 2. No gross intracranial hemorrhage. MRI lumbar spine without contrast 07/07: 1. Likely developing discitis osteomyelitis at the L3-L4 level with associated epidural phlegmon extending superiorly and inferiorly from the disc space resulting in at least moderate spinal canal stenosis at this level. 2. No acute fracture. Likely chronic S1 superior endplate fracture. 3. Moderate to severe multilevel degenerative disc disease as described above. MRI brain without contrast 07/07: Evaluation is limited due to patient motion artifact. No gross acute intracranial process. Assessment Detail: The total time spent for this visit was 35 minutes. Greater than 50% of the time was spent in counseling and coordination of care regarding MRSA bacteremia, SVC thrombus. Toño Stewart MD [facility] - Infectious Diseases Office/answering service [phone] 07/11/2025 10:49 AM Date: 07/11/2025 Time: 9:11 AM Patient Name: Misael Medina Date of : 1950 Discharge Disposition Update: Discharge to [facility] pending acceptance. Hep B and CXR results sent to facility. Patient will need Availity precert. Addendum 0934: Facility has accepted. Availity precert and transportation needed. HENS completed. D/C Disposition: [facility] Facility Plan A: [facility] Facility Plan B: Home Health Care Services Transportation: Transportation Type: Ambulance Discharge Disposition: Regulatory Documentation: 07/11/25 0756 Post-Hemodialysis Assessment Rinseback Volume (mL) 300 mL Total Liters Processed (L/min) 37.6 L/min Dialyzer Clearance Moderately streaked Duration of Treatment (minutes) 145 minutes Hemodialysis Fluid Given mL (Intake) 500 mL Hemodialysis Fluid Removed mL (Output) 2235 mL Patient Response to Treatment Femoral temp line very positional causing many AP alarms. Attempted reversing, flushing, repositioning. Tx terminated with 35 min remaining. Nephrology notified. Pt scheduled for perm catheter after dialysis Post-Hemodialysis Comments Net UF 1.7 L Treatment Status Completed Vital Signs Temp 98.6 F (37 C) Heart Rate 79 Pulse 79 Resp 17 BP (!) 102/55 MAP (mmHg) 70 Hemodialysis Central Line Access Temporary catheter Left Femoral Placement Date/Time: 06/30/25 1500 Inserted by: Jose Tamayo NP Site Prep: Chlorhexidine Site Prep Agent has Completely Dried Before Drape Applied: Yes Local Anesthetic: Injectable Insertion Attempts: 1 Dialysis Catheter Type: Non-tunneled Access... Reassessment Unchd X Site Assessment Clean;Dry;Intact Arterial Line Status Deaccessed;Flushed;Clamped Venous Line Status Deaccessed;Flushed;Clamped Pigtail Line Status Capped Dressing Intervention Other (comment) (dated 07/08/25) Dressing Status Clean;Intact Dressing Change Due 07/14/25 Line Intervention Flushed;Cap changed;Alcohol cap Site Condition No complications Dressing CHG patch (chlorhexidine);Occlusive [facility] Inpatient Progress Note 07/11/2025 Misael Medina 1950 [id number] Assessment/Plan: Misael Medina is a 75 year old female with a history of HFrEF, ESRD, T2DM, Hypertension, Hyperlipidemia, who presented to [facility] on 06/25/25 after suffering a mechanical fall with loss of consciousness. Her course was complicated by respiratory failure requiring intubation on 06/25/25, MRSA bacteremia requiring HD line removal, and symptomatic bradycardia. Patient transferred to [facility] 06/28/25 for management of cardiogenic and septic shock. Resumed iHD 06/30. Transition to [facility] 07/01/25 for ongoing fluid removal. Extubated 07/02/25. [facility] consulted for medical management out of ICU. Multifactorial Shock: multifactorial, but primarily distributive/septic shock from MRSA bacteremia, in patient with known heart failure. Required pressor support on admission. Dobutamine weaned off 07/01/25, vasopressors off 07/02/25. Antibiotics as mentioned. Improved. MRSA Bacteremia: persistent MRSA bacteremia 06/25/25-06/27/25 per OSH records, HD catheter removed 06/26/25 with purulence at site. DESTIN 06/29/25 with SVC thrombus, no obvious other vegetation. Blood culture 06/27/25 +MRSA. Repeat blood culture 06/29/25 and 07/02/25 both +MRSA. Right femoral CVC removed 07/02/25. Blood culture 07/04/25 NGTD. MRI brain non acute and L-spine developing discitis osteomyelitis at the L3-L4 level with associated epidural phlegmon extending superiorly and inferiorly from the disc space resulting in at least moderate spinal canal stenosis at this level. Continued Teflaro and Dapto. Blood culture drawn 07/07/25 NGTD ID following. Discitis/Osteomyelitis: seen on MRI L spine. Neurosurgery evaluated; poor surgical candidate, recommended medical management at this time. Continued on IV antibiotics. Abnormal CT head: 06/30/25 CT head with Ill-defined hypodensities throughout the bilateral cerebellar hemispheres are nonspecific and could be artifactual. MRI brain non acute. Fourth Metatarsal Wound: s/p XR L foot 07/02/25 with relatively large superficial subcutaneous wound involving the heel with subcutaneous edematous changes about the distal calf, ankle and foot overall noted. ID following as above. Wound care. Consider Podiatry evaluation if worsens Acute Hypoxic Respiratory Failure: in setting of shock and volume overload. Requiring intubation 06/25/25. CXR (06/29/25) with pulmonary edema with bilateral effusions. Extubated 07/03/25 to LFNC. On 2L NC 07/05/25. Volume management with HD/Lasix. Wean O2 as tolerated. On 2 L NC 07/07/25 Acute on Chronic HFrEF: with baseline EF of 35%, down to 20% here in setting of stress/shock state. Holding all home GDMT given borderline blood pressures. Continued low-dose Hydralazine and Lasix. Volume management with HD. ESRD: s/p CRRT, transitioned to iHD. Perm cath placement by VIR 07/11/25. Nephrology following. Acute Metabolic Encephalopathy: in the setting of above. CT Head (06/30/25) with hypodensities bilateral cerebellar hemispheres. Consider MRI brain when able. Delirium precautions. PT/OT/HOBBER as able. Improved. SVC Thrombus: noted on DESTIN as above with 0.2 x 2.7cm mobile mass attached to the SVC wall. Heparin drip in place. T2DM: per history. Held home oral regimen. SSI in place. Monitor. Anxiety/Depression: per history. Continue home Remeron and Seroquel. Right Hip Pain: patient reported to ID team 07/10/25. X-ray right hip 07/10/25 non acute. Follow up with Ortho as outpatient. Class 2 Obesity: BMI 39. Lifestyle modifications. Code status: Full -- Palliative team following for Goals of Care discussions with /family. VTE Prophylaxis: Heparin drip. Medication Reconciliation: Reviewed using EMR Current living situation: Home Expected Disposition: TBD Estimated discharge date: TBD Medically Ready for Discharge: No Discussed with at bedside 07/09/25 Subjective: Patient seen and evaluated at bedside this morning on 07/11/25. Resting in bed. Had procedure and dialysis today. Reviewed chart. Cr 4.01, Hb 8.8. Monitor for toxicity while on IV antibiotics, Seroquel. I personally reviewed images of X-ray right hip which showed intact right hip prosthesis. Physical Exam: BP 93/60 (BP Location: Right arm, Patient Position: Lying) Pulse 81 Temp 97.4 F (36.3 C) (Oral) Resp 18 Ht 5' Wt 90.4 kg (199 lb 4.7 oz) SpO2 (!) 79% BMI 38.92 kg/m General: NAD Eyes: Sclera clear ENT: Neck supple. Cardiovascular: Regular rate, no murmur Respiratory: Clear to auscultation, symmetric air entry. Unlabored on 2L NC. Gastrointestinal: Soft, nondistended, nontender. Positive bowel sounds Genitourinary: No suprapubic tenderness Musculoskeletal: R great toe amputated Skin: Warm, dry. Scattered bruises/wounds to BLE Neuro: awake, alert. Generalized weakness. Psych: Calm and cooperative Current Medications: [Held by provider] atorvastatin 10 mg Oral Nightly ceftaroline (TEFLARO) IVPB 200 mg Intravenous Q8H DAPTOmycin (CUBICIN) IV 10 mg/kg (Adjusted) Intravenous Q48H famotidine 20 mg Oral Nightly hydrALAZINE 10 mg Oral Q8H YOLI lispro insulin 0-15 Units Subcutaneous at bedtime insulin lispro 0-30 Units Subcutaneous TID AC levothyroxine 112 mcg Oral Daily lidocaine 2 patch Transdermal Daily melatonin 5 mg Oral Nightly mirtazapine 7.5 mg Oral Nightly QUEtiapine 25 mg Oral Nightly senna-docusate 1 tablet Oral BID sodium chloride (PF) 10 mL Intracatheter Q8H YOLI sodium chloride (PF) 10-20 mL Intravenous Once in dialysis sodium chloride (PF) 5 mL Intravenous Q8H [facility] Labs, Imaging and Studies reviewed: Results from last 7 days Lab Units 07/11/25 0412 07/10/25 0133 07/09/25 0411 WBC K/mcL 7.32 7.62 7.27 HGB g/dL 8.8* 8.8* 8.9* HCT % 27.8* 27.4* 29.0* PLT K/mcL 171 164 176 Results from last 7 days Lab Units 07/11/25 0412 07/10/25 0133 07/09/25 0411 SODIUM mmol/L 138 138 143 POTASSIUM mmol/L 4.1 4.1 4.3 CHLORIDE mmol/L 100 101 106 BICARB mmol/L 27 25 BUN mg/dL 27* 21 35* CREATININE mg/dL 4.01* 3.30* 4.16* EGFR mL/min/1.73 m2 11* 14* 11* GLUCOSE mg/dL 79 80 79 CALCIUM mg/dL 8.8 8.5 8.2* PHOSPHORUS mg/dL 4.1 3.3 4.8* Results from last 7 days Lab Units 07/05/25 0510 ALT U/L 23 AST U/L 26 ALK PHOS U/L 119 BILIRUBIN TOTAL mg/dL 0.6 Results from last 7 days Lab Units 07/10/25 0829 INR 1.2* NEPHROLOGY PROGRESS NOTE [facility] Patient Name: Misael Medina MR#: [id number] : 1950 Admit Date: [id number] Physicians: Donal Will MD (Family); Saeed Zelaya MD (Referring) Attending: Physicians, [facility]* Reason for Consultation/History of Present Illness Patient is a 75yo female with history of JOSUE on CKD III secondary to ATN requiring HD, HFrEF, HTN, Type II DM, hypothyroidism, and morbid obesity. She initially presented to [facility] on 06/25/25 after a mechanical fall with LOC. Her course was complicated by acute respiratory failure requiring intubation (06/25) and MRSA bacteremia requiring perm cath removal for line holiday, and bradycardia. She was transferred to [facility] 06/28/25 for further management We are asked to manage dialysis. Assessment and Plan: 1) JOSUE on CKD III-->likely now ESRD -Started HD in March 2025 -Bx proven ATN (unclear circumstances) -TTS at [facility] with Dr. Leon -Reyna chest perm cath removed BLIND [facility]OOKER (06/26) d/t MRSA bacteremia -Unclear last HD BLIND HOOKER -EDW 96.3kg -Appreciate ICU team's assistance with L femoral temp line placement 06/30 -[facility] 07/01-07/03; transitioned to iHD 07/06 -Ran 2h 25min this AM; treatment terminated early d/t poor temp line function -Continue MWF schedule with next treatment 07/13 via new perm cath, which will be placed today (appreciate IR's assistance) 2) Acute hypoxemic respiratory failure, improved -Intubated at OSH BLIND HOOKER; extubated 03/03 -CXR on admission with small bilateral effusions, mild vascular congestion -Volume removal with ELEVATOR CONSTRUCTOR; stopped Lasix 07/08 d/t poor recent UO -Further care per primary 3) MRSA bacteremia -Blood cx positive at OSH; thought secondary to perm cath (now removed); repeat cx positive x2 06/29 and again 07/02. 07/04 and 07/07 cx negative -DESTIN 06/29 with EF 20-25%, mod-severely reduced RV function, mild-mod , mod MR, no pericardial effusion, 0.5 x 2.7 cm mobile mass appears to be attached to the wall of the SVC 2cm from RA interface -MRI brain non-acute, but lumbar MRI with likely developing discitis osteomyelitis at the L3-L4 level with associated epidural phlegmon extending superiorly and inferiorly from the disc space resulting in at least moderate spinal canal stenosis at this level. -Nsx consulted; no plan for surgical intervention -ID following; on Daptomycin/Ceftaroline; appreciate recs, possibly transition to IV vancomycin x 8 weeks with HD; will await final recs 4) Shock, resolved -Components of septic and cardiogenic shock in setting of chronic HFrEF -Home antihypertensive medications on hold -On Isopril from OSH, previously on low dose Dobutamine -Abx as above 5) Secondary hyperparathyroidism -Does not appear that she was on a binder BLIND HOOKER -OK for calcium replacement per ERP 6) Anemia of CKD -Hgb nearly at goal of 10-11, SHANTI not indicated in setting of acute thrombi -IV iron contraindicated in setting of bacteremia 7) Acute metabolic encephalopathy, improved -In setting of infection/sedatives -CT head limited d/t dental hardware/motion degredation -Bacteremia tx as above -Fluid removal with ELEVATOR CONSTRUCTOR 8) Hypernatremia; resolved -Previously hyponatremic -Lasix discontinued as above -Adjusting UF/Na bath with HD 9) SVC thrombus, Acute RIJ thrombus -Noted on DESTIN as above -On heparin gtt 10) HTN -Hydralazine resumed 07/03; placed hold precautions 07/08 d/t soft BP -UF as able with HD Following Discussed with strip cutter Will discuss with Dr. Bergeron Subjective Seen on HD Sleeping, appears comfortable Temp line not working well at all, tried to get her through treatment with lower flows, but had continued alarms BP 109/49, Qb 300, net UF 1.7L with shortened treatment; ended in C profile Objective Vitals: BP 125/61 Pulse 72 Temp 97.4 F (36.3 C) (Temporal) Resp 15 Ht 5' Wt 90.4 kg (199 lb 4.7 oz) SpO2 91% BMI 38.92 kg/m Intake/Output last 3 shifts: Intake/Output Summary (Last 24 hours) at 07/11/2025 0600 Last data filed at 07/10/2025 1101 Gross per 24 hour Intake 398.53 ml Output -- Net 398.53 ml I/O last 3 completed shifts: In: 1338.5 [P.O.:760; I.V.:278.5; Other:300] Out: 2300 [Other:2300] Wt Readings from Last 3 Encounters: 07/09/25 90.4 kg (199 lb 4.7 oz) 05/31/17 122 kg (269 lb) Physical Examination: General: Ill appearing elderly female. NAD Neuro: Sleeping. No myoclonus. Cardiac: Regular rate, +murmur Pulmonary: unlabored on LFNC Skin: No rashes/lesions on exposed skin Extremities: Minimal LE edema Access: L femoral temp line Results/Medications Reviewed: 07/11/25 6:00 AM: Laboratory, Microbiology, Pathology, Radiology, Cardiology, Medications and Transcriptions Scheduled Meds: [Held by provider] atorvastatin 10 mg Oral Nightly ceftaroline (TEFLARO) IVPB 200 mg Intravenous Q8H DAPTOmycin (CUBICIN) IV 10 mg/kg (Adjusted) Intravenous Q48H famotidine 20 mg Oral Nightly hydrALAZINE 10 mg Oral Q8H YOLI lispro insulin 0-15 Units Subcutaneous at bedtime insulin lispro 0-30 Units Subcutaneous TID AC levothyroxine 112 mcg Oral Daily lidocaine 2 patch Transdermal Daily melatonin 5 mg Oral Nightly mirtazapine 7.5 mg Oral Nightly QUEtiapine 25 mg Oral Nightly senna-docusate 1 tablet Oral BID sodium chloride (PF) 10 mL Intracatheter Q8H YOLI sodium chloride (PF) 10-20 mL Intravenous Once in dialysis sodium chloride (PF) 5 mL Intravenous Q8H YOLI Continuous Infusions: heparin infusion (weight based dosing) Stopped (07/11/25444) heparin sodium chloride 0.9 % Laboratory: Results from last 7 days Lab Units 07/11/25 0412 07/10/253 07/09/25410 WBC K/mcL 7.32 7.62 7.27 HGB g/dL 8.8* 8.8* 8.9* HCT % 27.8* 27.4* 29.0* PLT K/mcL 171 164 176 Results from last 7 days Lab Units 07/11/2541107/10/2513207/09/25410 SODIUM mmol/L 138 138 143 POTASSIUM mmol/L 4.1 4.1 4.3 CHLORIDE mmol/L 100 101 106 BICARB mmol/L 27 25 BUN mg/dL 27* 21 35* CREATININE mg/dL 4.01* 3.30* 4.16* EGFR mL/min/1.73 m2 11* 14* 11* GLUCOSE mg/dL 79 80 79 CALCIUM mg/dL 8.8 8.5 8.2* PHOSPHORUS mg/dL 4.1 3.3 4.8* Results from last 7 days Lab Units 07/10/25 0829 INR 1.2* Adrianne Mi PA-C [facility] Please use Secure Chat to contact (If I am not signed in, please contact the covering Stopper Maker) [phone] (office, after 5pm/weekends) Physical Therapy PHYSICAL THERAPY TREATMENT NOTE Skilled Therapy Needs After Discharge Anticipate Resolution of Current Assessment Limitations Including: Pain, Delirium, Mechanical Barriers, Social Support Are medical doctor md/medical director Therapy Services Needed After Discharge: Yes Intensity of medical doctor md/medical director Therapy: Up to 5 days per week Anticipated Duration of medical doctor md/medical director Therapy: Duration 10 - 30 days PT DME Recommendation: To be determined at next level of care Rehab Potential: Good, For goals Outcomes Measures Prior Function - Basic Mobility Raw Score: 24 Points Prior Function - Basic Mobility % Impaired: 0% AM-PAC Basic Mobility Raw Score: 9 Points AM-PAC Basic Mobility % Impaired: 77.59% Therapy Precautions General Rehab Precautions: Fall risk Balance Sitting Balance - Static: Minimal assist, Contact guard assist, Stand by assist Sitting Balance - Dynamic: Contact guard assist Sitting Balance Treatment: weight shifting anterior, weight shifting left, weight shifting right, reaching across midline, reaching outside base of support, reaching within base of support, maintaining midline orientation, postural re-education Skilled Intervention Provided: verbal cues, facilitation, patient education For: UE positioning, balance recovery, initiation of tasks, self-monitoring during activity, sequencing of movement, trunk control, weight shifting Resulting in: improved activity tolerance, increased upright tolerance for functional tasks Bed Mobility Rolling: Moderate assist, Head of bed elevated Supine to Sit: Moderate assist, Head of bed elevated Sit to Supine: Minimal assist Outboard Motor Assembler: bedrails, patient slide sheet / friction-reducing device Skilled Intervention Provided: verbal cues, facilitation, monitoring patient response with activity, provided step by step instructions, patient education For: LE positioning, UE positioning, initiation of task, logroll technique, necessary precautions, safe use of bedrails and/or equipment, safety during functional tasks, self-monitoring during activity, sequencing of movement, weight shifting Resulting in: improved activity tolerance, increased initiation in mobility task(s), increased participation in mobility task(s), increased upright tolerance for functional tasks Transfers Sit to Stand: (Not attempted due to LBP; based off increased activity tolerance, pt should be able to initiate standing activites next session.) Exercise Seated Exercises: x10 (AP, LAQ, hip flexion on EOB; AP, SAQ, hip flexion, shoulder flexion/elevation/scapular retraction with bed placed in chair position.) Skilled Intervention Provided: verbal cues, visual cues, monitoring patient response with exercise, patient education For: achieving full ROM as tolerated, muscle activation, number of repetitions, self-monitoring during activity Resulting in: efficient movement, improved activity tolerance, improved initiation, improved sequencing Home Living Obtained Home Living and PLOF info from: Patient Lives With: Spouse Type of Home: House Home Layout: Two level, Bed on main level Steps to enter home: Yes Rails to enter home: 1 rail Number of stairs to enter home: 4 Mobility Equipment: (Does not use any assistive devices) Prior Level of Function Level of [place] - Transfers/Ambulation/Mobility: Independent with functional transfers, Independent with household ambulation Level of [place] - ADLs: Independent Level of [place] - Homemaking: Independent Driving: Patient drives For complete objective data, detailed plan of care and patient education refer to: PT Evaluation flowsheet, PT Evaluation and Treatment flowsheet, PT Treatment flowsheet, patient Plan of Care, Plan of Care progress note, and Patient Education. This note stands as the current Discharge Summary upon patient discharge from the hospital or completion of Physical Therapy Plan of Care. Cosigned by Rony Bermudez, PT at 07/10/2025 4:01 PM EDT NEPHROLOGY PROGRESS NOTE [facility] Patient Name: Misael Medina MR#: [id number] : 1950 Admit Date: [id number] Physicians: Donal Will MD (Family); Saeed Zelaya MD (Referring) Attending: Physicians, [facility]* Reason for Consultation/History of Present Illness Patient is a 75yo female with history of JOSUE on CKD III secondary to ATN requiring HD, HFrEF, HTN, Type II DM, hypothyroidism, and morbid obesity. She initially presented to [facility] on 06/25/25 after a mechanical fall with LOC. Her course was complicated by acute respiratory failure requiring intubation (06/25) and MRSA bacteremia requiring perm cath removal for line holiday, and bradycardia. She was transferred to [facility] 06/28/25 for further management We are asked to manage dialysis. Assessment and Plan: 1) JOSUE on CKD III-->likely now ESRD -Started HD in March 2025 -Bx proven ATN (unclear circumstances) -TTS at [facility] with Dr. Leon -Reyna chest perm cath removed BLIND HOOKER (06/26) d/t MRSA bacteremia -Unclear last HD BLIND HOOKER -EDW 96.3kg -Appreciate ICU team's assistance with L femoral temp line placement 06/30 -[facility] 07/01-07/03; transitioned to iHD 07/06 - HD MWF - HD 07/09 via left femoral temp HD line - appreciate ID recs - will consult VIR for Permcath placement 07/11 followed by HD 2) Acute hypoxemic respiratory failure, improved -Intubated at OSH BLIND HOOKER; extubated 03/03 -CXR on admission with small bilateral effusions, mild vascular congestion -Volume removal with ELEVATOR CONSTRUCTOR; stopped Lasix 07/08 d/t poor recent UO -Further care per primary 3) MRSA bacteremia -Blood cx positive at OSH; thought secondary to perm cath (now removed); repeat cx positive x2 06/29 and again 07/02. 07/04 and 07/07 cx negative -DESTIN 06/29 with EF 20-25%, mod-severely reduced RV function, mild-mod , mod MR, no pericardial effusion, 0.5 x 2.7 cm mobile mass appears to be attached to the wall of the SVC 2cm from RA interface -MRI brain non-acute, but lumbar MRI with likely developing discitis osteomyelitis at the L3-L4 level with associated epidural phlegmon extending superiorly and inferiorly from the disc space resulting in at least moderate spinal canal stenosis at this level. -Nsx consulted; no plan for surgical intervention -ID following; on Daptomycin/Ceftaroline; appreciate recs, possibly transition to IV vancomycin x 8 weeks with HD; will await final recs 4) Shock, resolved -Components of septic and cardiogenic shock in setting of chronic HFrEF -Home antihypertensive medications on hold -On Isopril from OSH, previously on low dose Dobutamine -Abx as above 5) Secondary hyperparathyroidism -Does not appear that she was on a binder BLIND HOOKER -OK for calcium replacement per ERP 6) Anemia of CKD -Hgb nearly at goal of 10-11, SHANTI not indicated in setting of acute thrombi -IV iron contraindicated in setting of bacteremia 7) Acute metabolic encephalopathy, improved -In setting of infection/sedatives -CT head limited d/t dental hardware/motion degredation -Bacteremia tx as above -Fluid removal with ELEVATOR CONSTRUCTOR 8) Hypernatremia; resolved -Previously hyponatremic -Lasix discontinued as above -Adjusting UF/Na bath with HD 9) SVC thrombus, Acute RIJ thrombus -Noted on DESTIN as above -On heparin gtt 10) HTN -Hydralazine resumed 07/03; placed hold precautions 07/08 d/t soft BP -UF as able with HD Following Subjective Seen in room Doing okay Denies any complaints HD yesterday uneventful Objective Vitals: BP 122/78 (BP Location: Left arm, Patient Position: Lying) Pulse 77 Temp 97.8 F (36.6 C) (Oral) Resp 16 Ht 5' Wt 90.4 kg (199 lb 4.7 oz) SpO2 94% BMI 38.92 kg/m Intake/Output last 3 shifts: Intake/Output Summary (Last 24 hours) at 07/10/2025 1233 Last data filed at 07/10/2025 1101 Gross per 24 hour Intake 1038.53 ml Output -- Net 1038.53 ml I/O last 3 completed shifts: In: 1587 [P.O.:740; I.V.:432; Other:300; IV Piggyback:115.1] Out: 2300 [Other:2300] Wt Readings from Last 3 Encounters: 07/09/25 90.4 kg (199 lb 4.7 oz) 05/31/17 122 kg (269 lb) Physical Examination: General: Ill appearing elderly female. NAD Neuro: Awake, conversant. No myoclonus. Cardiac: Regular rate, +murmur Pulmonary: Diminished bilaterally unlabored on LFNC Skin: No rashes/lesions on exposed skin Extremities: Minimal LE edema Access: L femoral temp line Results/Medications Reviewed: 07/10/25 12:33 PM: Laboratory, Microbiology, Pathology, Radiology, Cardiology, Medications and Transcriptions Scheduled Meds: atorvastatin 10 mg Oral Nightly ceftaroline (TEFLARO) IVPB 200 mg Intravenous Q8H DAPTOmycin (CUBICIN) IV 10 mg/kg (Adjusted) Intravenous Q48H famotidine 20 mg Oral Nightly hydrALAZINE 10 mg Oral Q8H YOLI lispro insulin 0-15 Units Subcutaneous at bedtime insulin lispro 0-30 Units Subcutaneous TID AC levothyroxine 112 mcg Oral Daily lidocaine 2 patch Transdermal Daily melatonin 5 mg Oral Nightly mirtazapine 7.5 mg Oral Nightly QUEtiapine 25 mg Oral Nightly senna-docusate 1 tablet Oral BID sodium chloride (PF) 10 mL Intracatheter Q8H YOLI sodium chloride (PF) 5 mL Intravenous Q8H YOLI Continuous Infusions: heparin infusion (weight based dosing) 10 Units/kg/hr (07/10/25 1036) heparin Laboratory: Results from last 7 days Lab Units 07/10/25 0133 07/09/25 0411 07/08/25 2047 WBC K/mcL 7.62 7.27 8.74 HGB g/dL 8.8* 8.9* 9.2* HCT % 27.4* 29.0* 29.3* PLT K/mcL 164 176 169 Results from last 7 days Lab Units 07/10/25 0133 07/09/25 0411 07/08/25 0359 SODIUM mmol/L 138 143 140 POTASSIUM mmol/L 4.1 4.3 4.2 CHLORIDE mmol/L 101 106 102 BICARB mmol/L 25 BUN mg/dL 21 35* 24 CREATININE mg/dL 3.30* 4.16* 3.52* EGFR mL/min/1.73 m2 14* 11* 13* GLUCOSE mg/dL 80 79 108* CALCIUM mg/dL 8.5 8.2* 8.1* PHOSPHORUS mg/dL 3.3 4.8* 3.6 Deion Bergeron DO [facility] Please use Secure Chat to contact (If I am not signed in, please contact the covering Stopper Maker) [phone] (office, after 5pm/weekends) Date: 07/10/2025 Time: 11:22 AM Patient Name: Misael Medina Date of : 1950 Discharge Disposition Update: Pending. CM met with patient at bedside to discuss discharge planning. Patient would like for a referral to be sent to [facility] in [place]. This facility provides HD on site and patient has been there before. Confirmed with spouse Jonny. Referral sent. Addendum 1426: CM spoke with Rosa at [facility] to provide update ([phone]). Updated physician notes, H&P and labs faxed to [phone]. D/C Disposition: [facility] Facility Plan A: [facility] Facility Plan B: Home Health Care Services Transportation: Transportation Type: Ambulance Discharge Disposition: Regulatory Documentation: Palliative Medicine - Progress Note PATIENT: Misael Medina : 1950 ADMISSION DATE: 06/28/2025 5:52 PM Clinical Summary: Misael Medina is a 75 y.o. y/o female with a history of HFrEF, ESRD (since March 2025), T2DM, HTN, HLD, and morbid obesity who initially presented to [facility] on 06/25/25 after suffering a mechanical fall. Her course was complicated by respiratory failure requiring intubation on 06/25/25, MRSA bacteremia requiring HD line removal, and symptomatic bradycardia. She was transferred to [facility] for management of cardiogenic and septic shock. She presented to [facility] on 06/28/2025. Palliative Medicine was consulted on hospital day 4 for assistance with Clarification of Goals of Care (GOC). Assessment / Recommendations Palliative Care Encounter Ed has had improved mentation during hospital stay. She is aware of her blood infection and ongoing treatment. She was not aware of infection findings in her back after MRI L spine. Her , Jonny, when we spoke via phone was also not aware of MRI findings. I shared brief update to both patient and . Ed has had altered mental status during this hospital stay. If there are ongoing concerns her surrogate decision maker is her spouse/. Goals of care: continue disease directed care, discharge to local SNF/rehab when stable to do so Patient was admitted with multiple life threatening concerns, thus concern for overall poor prognosis remains and I have shared my general worry about her fragile health status moving forward. Recommend [facility] engage in discharge planning ([facility] in [place]? Suggested by patient and ) Code status FULL CODE Pertinent Hospital Diagnoses Acute Hypoxic Respiratory Failure - intubated at OSH prior to [facility] admit, extubated 07/02 Severe Sepsis Acute on Chronic HFrEF - also noting RV dysfunction MRSA Bacteremia - anticipate half-way IV antibiotic needs, ID following ESRD SVC Thrombus Infection HD Catheter L3-4 Discitis/Osteo, Epidural Phlegmon Mechanical Fall - prompting initial hospitalization T2DM HTN Morbid Obesity Thank you for the opportunity to participate in the care of Misael Medina. Clarita Aguilar DO Office: [phone] Cell: see treatment team Subjective Data Ed seen late morning. She is awake and conversational. She was aware of blood infection and ongoing HD, had HD yesterday without reported issue. She was not aware of MRI L spine findings. Updated her briefly on this and need for half-way IV antibiotic therapies, ID following. Reviewed new HD access will also be needed as groin access presently being used in temporary. Call also placed to her , Jonny. He shares good understanding of her medical issues and hospitalization, he was not aware of MRI L spine findings either. Brief updated shared with him. Direct care coordination done with hospitalist, neurosurg SAYRA, ID attending and RN to review my conversation with pt and . [] ROS is negative except what is stated above with the notable exceptions: [x] Unable to obtain review of systems due to intubation/neurologic status: Objective Data BP 124/75 (BP Location: Left arm, Patient Position: Lying) Pulse 73 Temp 97.6 F (36.4 C) (Oral) Resp 15 Ht 5' Wt 90.4 kg (199 lb 4.7 oz) SpO2 92% BMI 38.92 kg/m Physical Exam: CONSTITUTIONAL: No acute distress. Supine in bed. Elderly appearing white female. Awake, calm, conversational, pleasant affect. EYES: Eyes open, no scleral icterus bilaterally. Glasses in place. RESP: No increased work of breathing or accessory muscle use NEURO: No tremors or myoclonus. Billing: I spent 55 minutes in total time today including chart review, care coordination and visit to bedside. INFECTIOUS DISEASES DAILY PROGRESS NOTE Patient Name: Misael Medina MR #: [id number] Date of Service: 07/10/2025 Impression/Recommendations: 1) MRSA bacteremia 2) shock 3) ESRD/CKD recently on HD 4) h/o aortic stenosis 5) SVC thrombus 6) infected dialysis catheter 7) DM2 8) L3-4 discitis/osteomyelitis and epidural phlegmon 9) right hip pain, s/p R ARMIDA Patient with persistent MRSA bacteremia 06/25-06/27 per OSH records, HD catheter removed 06/26 with purulence at site. Ongoing instability requiring transfer. - changed to daptomycin plus ceftaroline per pharmacy 07/02. CPK and LFTs reviewed, check at least weekly, CPK 32 07/05. Anticipate change back to vancomycin with HD eventually. - blood cx 06/27 positive. Blood cx 06/29 positive, blood cx 07/02 2 of 2 MRSA. Blood cx 07/04 negative, blood cx 07/07 NGTD (checked in case there was skip phenomenon). - pt had HD catheter removed 06/26, there was still infected-looking fluid coming from site on arrival to [facility]. No obvious abscess on CT chest. Improved. - DESTIN 06/29 with SVC thrombus, no obvious other vegetation - right femoral CVC removed 07/02. Acute right internal jugular thrombus on US. May be challenging line placement. - nephrology following, now on iHD. Femoral temp HD catheter in place. Unclear what longer term HD access would be, but as blood cx appear to be clearing, can try to determine next HD line this week. - monitor for joint/back pain. MRI lumbar spine finally able to be obtained, read as L3-L4 discitis/osteomyelitis, epidural phlegmon; neurosurgery consulted, planning conservative management - abnormal head CT 06/30, MRI brain limited by motion, no obvious infarct - some purulence of left toe initially, d/w wound care. XR reviewed, consider podiatry evaluation if worsens. Now dry and scabbed. - pt reports right hip pain, will start with XR and ESR/CRP. Fairly good ROM passively. If continues, low threshold for ortho to see as she has ARMIDA. - further recommendations pending clinical course. Prognosis appears poor. Palliative care team involved. As aggressive care continues, likely 8 weeks of IV vancomycin at HD through 08/29/25 followed by PO suppression with doxycycline. Communicated with [facility] Perpetual Assessment: Misael Medina is a 75 y.o. female on hospital day 12 with MRSA bacteremia. Subjective/Objective: Subjective: Patient was seen and examined in follow-up. Afebrile. When asked about her back pain, states her right hip hurts. She is able to move it passively, when asked when it hurts says all the time. She does have ARMIDA. Review of Systems: The following system(s) were reviewed and negative. Pertinent positive and negative findings are noted in the HPI. [x] Const [] Eyes [] ENT [x] Resp [x] CV [x] GI [] [] Neuro [x] Musc [x] Skin [] Psych [] Endo [] Allergy [] Heme/Lymph [] Unable to obtain due to clinical status Physical Examination: BP 124/75 (BP Location: Left arm, Patient Position: Lying) Pulse 73 Temp 97.6 F (36.4 C) (Oral) Resp 15 Ht 5' Wt 90.4 kg (199 lb 4.7 oz) SpO2 92% BMI 38.92 kg/m General: Ill appearing, awake HEENT: Head: NCAT. Eyes: conjunctiva and sclera clear. OP dry mm Neck: Symmetrical Prior HD catheter site bandaged, clean Respiratory: Diminished, scattered coarse Cardiovascular: Distant S1S2 Abdomen: Soft; obese, nontender, nondistended Extremities: + edema Musculoskeletal: Left toe with small wound Able to passively more RLE fairly well Skin: No diffuse rash, pale : Jimenez Lines: Left femoral HD catheter Laboratory and Additional Data Reviewed: Laboratory 07/10/25 9:54 AM Microbiology 07/10/25 9:54 AM Pathology 07/10/25 9:54 AM Radiology 07/10/25 9:54 AM Cardiology 07/10/25 9:54 AM Medications 07/10/25 9:54 AM Transcriptions 07/10/25 9:54 AM Current medications: atorvastatin 10 mg Oral Nightly ceftaroline (TEFLARO) IVPB 200 mg Intravenous Q8H DAPTOmycin (CUBICIN) IV 10 mg/kg (Adjusted) Intravenous Q48H famotidine 20 mg Oral Nightly hydrALAZINE 10 mg Oral Q8H YOLI lispro insulin 0-15 Units Subcutaneous at bedtime insulin lispro 0-30 Units Subcutaneous TID AC levothyroxine 112 mcg Oral Daily lidocaine 2 patch Transdermal Daily melatonin 5 mg Oral Nightly mirtazapine 7.5 mg Oral Nightly QUEtiapine 25 mg Oral Nightly senna-docusate 1 tablet Oral BID sodium chloride (PF) 10 mL Intracatheter Q8H YOLI sodium chloride (PF) 5 mL Intravenous Q8H YOLI Results from last 7 days Lab Units 07/10/25 0133 07/09/25 0411 07/08/25 2047 WBC K/mcL 7.62 7.27 8.74 HGB g/dL 8.8* 8.9* 9.2* HCT % 27.4* 29.0* 29.3* PLT K/mcL 164 176 169 Results from last 7 days Lab Units 07/10/25 0133 07/09/25 0411 07/08/25 0359 SODIUM mmol/L 138 143 140 POTASSIUM mmol/L 4.1 4.3 4.2 CHLORIDE mmol/L 101 106 102 BUN mg/dL 21 35* 24 CREATININE mg/dL 3.30* 4.16* 3.52* GLUCOSE mg/dL 80 79 108* CALCIUM mg/dL 8.5 8.2* 8.1* Comments: WBC 7.62, Cr 3.30 LFTs reviewed [facility] micro lab: Blood cx 06/25 MRSA Blood cx 06/26 MRSA Blood cx 06/27 (from central line) MRSA Cath tip 06/26 staph aureus (presumed MRSA) Pleural fluid 06/28 final negative Sputum cx 06/25 normal nadia Urine cx 06/25 yeast (not albicans) and GNB Wound cx 03/19/25 (unknown source) staph epi, MRSA, E faecalis, corynebacterium. Wound cx 03/16/25 (unknown source) E casseliflavus, E avium, GPR Blood cx [facility] 06/29 2 of 2 MRSA, vancomycin DELIA 1.0 Blood cx 07/02 2 of 2 MRSA Blood cx 07/04 negative Blood cx 07/07 NGTD CTPA, A/P report [place] reviewed TTE report reviewed DESTIN 06/29: 1. Left ventricular systolic function is severely reduced, with ejection fraction estimated at 20 +/- 5%. 2. Right ventricular systolic function is moderate to severely reduced. 3. There is no thrombus visualized in the left atrial appendage. 4. There is mild to moderate aortic valve stenosis with valve area of 1.5 cm2. 5. There is moderate mitral valve regurgitation. 6. There is no pericardial effusion. 7. A 0.5 x 2.7 cm, mobile mass appears to be attached to the wall of the SVC approximately 2 cm from the right atrial interface. This finding is consistent with thrombus. Associated infection cannot be excluded. CT CAP 06/30: 1. Appropriately positioned ETT and gastric tube. 2. Cardiomegaly, pulmonary edema and bilateral pleural effusions suggesting decompensated CHF. 3. Heavy three-vessel coronary artery calcifications. 4. Complete atelectasis of the bilateral lower lobes adjacent to the large effusions. 5. Common bile duct measuring 10 mm. This may represent reservoir effect related to patient's age and history of cholecystectomy. 6. Ascites in all 4 quadrants and anasarca in the body wall compatible with volume overload. CT head 06/30: 1. Evaluation is limited due to extensive streaking artifact from dental hardware as well as patient motion. Ill-defined hypodensities throughout the bilateral cerebellar hemispheres are nonspecific and could be artifactual. Consider MRI brain if clinically warranted. 2. No gross intracranial hemorrhage. MRI lumbar spine without contrast 07/07: 1. Likely developing discitis osteomyelitis at the L3-L4 level with associated epidural phlegmon extending superiorly and inferiorly from the disc space resulting in at least moderate spinal canal stenosis at this level. 2. No acute fracture. Likely chronic S1 superior endplate fracture. 3. Moderate to severe multilevel degenerative disc disease as described above. MRI brain without contrast 07/07: Evaluation is limited due to patient motion artifact. No gross acute intracranial process. Assessment Detail: The total time spent for this visit was 35 minutes. Greater than 50% of the time was spent in counseling and coordination of care regarding MRSA bacteremia, SVC thrombus. Toño Stewart MD [facility] - Infectious Diseases Office/answering service [phone] 07/10/2025 9:54 AM [facility] Inpatient Progress Note 07/10/2025 Misael Medina 1950 [id number] Assessment/Plan: Misael Medina is a 75 year old female with a history of HFrEF, ESRD, T2DM, Hypertension, Hyperlipidemia, who presented to [facility] on 06/25/25 after suffering a mechanical fall with loss of consciousness. Her course was complicated by respiratory failure requiring intubation on 06/25/25, MRSA bacteremia requiring HD line removal, and symptomatic bradycardia. Patient transferred to [facility] 06/28/25 for management of cardiogenic and septic shock. Resumed iHD 06/30. Transition to [facility] 07/01/25 for ongoing fluid removal. Extubated 07/02/25. [facility] consulted for medical management out of ICU. Multifactorial Shock: multifactorial, but primarily distributive/septic shock from MRSA bacteremia, in patient with known heart failure. Required pressor support on admission. Dobutamine weaned off 07/01/25, vasopressors off 07/02/25. Antibiotics as mentioned. Improved. MRSA Bacteremia: persistent MRSA bacteremia 06/25/25-06/27/25 per OSH records, HD catheter removed 06/26/25 with purulence at site. DESTIN 06/29/25 with SVC thrombus, no obvious other vegetation. Blood culture 06/27/25 +MRSA. Repeat blood culture 06/29/25 and 07/02/25 both +MRSA. Right femoral CVC removed 07/02/25. Blood culture 07/04/25 NGTD. MRI brain non acute and L-spine developing discitis osteomyelitis at the L3-L4 level with associated epidural phlegmon extending superiorly and inferiorly from the disc space resulting in at least moderate spinal canal stenosis at this level. Continued Teflaro and Dapto. Blood culture drawn 07/07/25 NGTD ID following. Discitis/Osteomyelitis: seen on MRI L spine. Neurosurgery evaluated; poor surgical candidate, recommended medical management at this time. Continued on IV antibiotics. Abnormal CT head: 06/30/25 CT head with Ill-defined hypodensities throughout the bilateral cerebellar hemispheres are nonspecific and could be artifactual. MRI brain non acute. Fourth Metatarsal Wound: s/p XR L foot 07/02/25 with relatively large superficial subcutaneous wound involving the heel with subcutaneous edematous changes about the distal calf, ankle and foot overall noted. ID following as above. Wound care. Consider Podiatry evaluation if worsens Acute Hypoxic Respiratory Failure: in setting of shock and volume overload. Requiring intubation 06/25/25. CXR (06/29/25) with pulmonary edema with bilateral effusions. Extubated 07/03/25 to LFNC. On 2L NC 07/05/25. Volume management with HD/Lasix. Wean O2 as tolerated. On 2 L NC 07/07/25 Acute on Chronic HFrEF: with baseline EF of 35%, down to 20% here in setting of stress/shock state. Holding all home GDMT given borderline blood pressures. Continued low-dose Hydralazine and Lasix. Volume management with HD. ESRD: s/p CRRT, transitioned to iHD. Nephrology following. Acute Metabolic Encephalopathy: in the setting of above. CT Head (06/30/25) with hypodensities bilateral cerebellar hemispheres. Consider MRI brain when able. Delirium precautions. PT/OT/HOBBER as able. Improved. SVC Thrombus: noted on DESTIN as above with 0.2 x 2.7cm mobile mass attached to the SVC wall. Heparin drip in place. T2DM: per history. Held home oral regimen. SSI in place. Monitor. Anxiety/Depression: per history. Continue home Remeron and Seroquel. Code status: Full -- Palliative team following for Goals of Care discussions with /family. VTE Prophylaxis: Heparin drip. Medication Reconciliation: Reviewed using EMR Current living situation: Home Expected Disposition: TBD Estimated discharge date: TBD Medically Ready for Discharge: No Discussed with at bedside 07/09/25 Subjective: Patient seen and evaluated at bedside this morning on 07/10/25. Resting in bed. Reviewed chart. Had dialysis yesterday. Cr 4.16->3.30, Hb 8.9->8.8. Monitor for toxicity while on IV antibiotics, Seroquel. Physical Exam: BP 124/82 (BP Location: Left arm, Patient Position: Lying) Pulse 76 Temp 97.8 F (36.6 C) (Oral) Resp 15 Ht 5' Wt 90.4 kg (199 lb 4.7 oz) SpO2 90% BMI 38.92 kg/m General: NAD Eyes: Sclera clear ENT: Neck supple. Cardiovascular: Regular rate, no murmur Respiratory: Clear to auscultation, symmetric air entry. Unlabored on 2L NC. Gastrointestinal: Soft, nondistended, nontender. Positive bowel sounds Genitourinary: No suprapubic tenderness Musculoskeletal: R great toe amputated Skin: Warm, dry. Scattered bruises/wounds to BLE Neuro: awake, alert. Generalized weakness. Psych: Calm and cooperative Current Medications: atorvastatin 10 mg Oral Nightly ceftaroline (TEFLARO) IVPB 200 mg Intravenous Q8H DAPTOmycin (CUBICIN) IV 10 mg/kg (Adjusted) Intravenous Q48H famotidine 20 mg Oral Nightly hydrALAZINE 10 mg Oral Q8H YOLI lispro insulin 0-15 Units Subcutaneous at bedtime insulin lispro 0-30 Units Subcutaneous TID AC levothyroxine 112 mcg Oral Daily lidocaine 2 patch Transdermal Daily melatonin 5 mg Oral Nightly mirtazapine 7.5 mg Oral Nightly QUEtiapine 25 mg Oral Nightly senna-docusate 1 tablet Oral BID sodium chloride (PF) 10 mL Intracatheter Q8H YOLI sodium chloride (PF) 5 mL Intravenous Q8H YOLI Labs, Imaging and Studies reviewed: Results from last 7 days Lab Units 07/10/25 01307/09/25 04107/08/25 2047 WBC K/mcL 7.62 7.27 8.74 HGB g/dL 8.8* 8.9* 9.2* HCT % 27.4* 29.0* 29.3* PLT K/mcL 164 176 169 Results from last 7 days Lab Units 07/10/25 0133 07/09/25 0411 07/08/25 0359 SODIUM mmol/L 138 143 140 POTASSIUM mmol/L 4.1 4.3 4.2 CHLORIDE mmol/L 101 106 102 BICARB mmol/L 27 25 25 BUN mg/dL 21 35* 24 CREATININE mg/dL 3.30* 4.16* 3.52* EGFR mL/min/1.73 m2 14* 11* 13* GLUCOSE mg/dL 80 79 108* CALCIUM mg/dL 8.5 8.2* 8.1* PHOSPHORUS mg/dL 3.3 4.8* 3.6 Results from last 7 days Lab Units 07/05/25 0510 ALT U/L 23 AST U/L 26 ALK PHOS U/L 119 BILIRUBIN TOTAL mg/dL 0.6 Nutrition Care Follow Up Monitoring and Evaluation: PO intake was less than 25-50% at most meals. Supplement intake was >0% per patient Nutrition Diagnosis: Inadequate protein/energy intake/Swallow difficulty r/t inability to take PO In setting of mechanical ventilation (recent extubation 07/02) AEB NPO status still with recs for texture-modified oral diet/HOBBER/MBS results of today per mild oropharyngeal dysphagia/+penetration/no aspiration) with current intake inadequate to meet estimated protein/energy intake- Not Resolved/Active Nutrition Intervention/Recommendations: Diet Order: Continue diet as ordered. ONS: Modify medical food supplement.Gelatein TID Nutrition Prescription: Diet: Diet Therapeutic; Liquid Consistency, Food Consistency; Thin Liquids; Pureed/NDD1 Oral nutrition supplements Boost Glucose Control; Boost Glucose Control (No Flavor Specified) 3 times daily with meals Nutrition Goals: PO intake >50% most meals and supplements Start Date:07/09/2025 Expected End Date:07/13/2025 Estimated Needs: Estimated Energy Needs Total Energy Estimated Needs: 1156-6259 kcals/day Method for Estimating Needs: 22-25 kcals/kg IBW/day (IBW 57.8 kg for BMI 24.9kgm2) Total Protein Estimated Needs: 69-116 gm/day Method for Estimating Needs: 1.2-2.0 gm/kg IBW/day Nutrition Education: no needs/will monitor for needs Assessment: Pertinent Clinical Information: MRI ordered, likely osteomyelitis. Lasix discontinued. Pt/family comments: Patient reports poor appetite and intake, eating 50% of most of her meals. Patient reports disliking ONS, drinking 0 per day. Pt is agreeable to [facility]. No nausea/vomiting/constipation/diar marilu/abdominal pain per pt interview. Current ht:5' Current wt:.90.4 kg (199 lb 4.7 oz) Body mass index is 38.92 kg/m . BMI Classification: Class II Obesity (35-39.9) Wt hx: Wt Readings from Last 10 Encounters: 07/09/25 90.4 kg (199 lb 4.7 oz) 05/31/17 122 kg (269 lb) Recent intake: 07/07, 0-25% 0-25% 07/06, 0-25% 0-25% 07/05, 0-25% 0-25% per flowsheet - Current intake does not meet estimated needs. Appetite: poor Barriers to adequate nutrition intake: Poor appetite Fluid Status: +1 pitting edema RLE and LLE Skin Integrity: surgical wound(s) at cervical anterior, 4th toe Left GI Function (per nursing flowsheet): Abdomen Inspection: Soft, Rounded Bowel Sounds (All Quadrants): Hyperactive Last BM Date: 07/08/25 Passing Flatus: Yes GI Symptoms: Diarrhea Labs: Recent Labs 07/07/25 0337 07/08/25 0359 07/09/25 0411 NA 141 140 143 K 3.8 4.2 4.3 BICARB 25 CL 104 102 106 GLUCOSE 89 108* 79 BUN 16 24 35* CREATININE 2.60* 3.52* 4.16* MG 2.2 2.0 2.1 PHOS 2.6* 3.6 4.8* Recent Labs 07/06/25 2207 07/07/25 0749 07/07/25 1229 07/07/25 1739 07/07/25 2101 07/08/25 0820 07/08/25 1208 07/08/25 1726 07/08/25 2115 07/09/25 0721 POCGLU 109* 92 102* 76 122* 98 105* 107* 100* 80 Lab Results Component Value Date HGBA1C 6.6 (H) 06/28/2025 Scheduled Meds: atorvastatin 10 mg Tube Nightly ceftaroline (TEFLARO) IVPB 200 mg Intravenous Q8H DAPTOmycin (CUBICIN) IV 10 mg/kg (Adjusted) Intravenous Q48H famotidine 20 mg Tube Nightly hydrALAZINE 10 mg Oral Q8H YOLI lispro insulin 0-15 Units Subcutaneous at bedtime insulin lispro 0-30 Units Subcutaneous TID AC levothyroxine 112 mcg Tube Daily lidocaine 2 patch Transdermal Daily melatonin 5 mg Tube Nightly mirtazapine 7.5 mg Oral Nightly QUEtiapine 25 mg Tube Nightly senna-docusate 1 tablet Tube BID sodium chloride (PF) 10 mL Intracatheter Q8H YOLI sodium chloride (PF) 5 mL Intravenous Q8H YOLI Continuous Infusions: heparin infusion (weight based dosing) 12 Units/kg/hr (07/09/25 0600) heparin sodium chloride 0.9 % sodium chloride 0.9 % Assessed By: Tyrell Hogue RD, LD Office 07/09/25 1059 Post-Hemodialysis Assessment Rinseback Volume (mL) 300 mL Total Liters Processed (L/min) 58.5 L/min Dialyzer Clearance Moderately streaked Duration of Treatment (minutes) 180 minutes Hemodialysis Fluid Given mL (Intake) 300 mL Hemodialysis Fluid Removed mL (Output) 2300 mL Patient Response to Treatment pt tolerated tx well Post-Hemodialysis Comments net 2L removed Treatment Status Completed Vital Signs Temp 97.1 F (36.2 C) Temp src Oral Heart Rate 71 Resp (!) 22 BP 119/69 MAP (mmHg) 85 Hemodialysis Central Line Access Temporary catheter Left Femoral Placement Date/Time: 06/30/25 1500 Inserted by: Jose Tamayo NP Site Prep: Chlorhexidine Site Prep Agent has Completely Dried Before Drape Applied: Yes Local Anesthetic: Injectable Insertion Attempts: 1 Dialysis Catheter Type: Non-tunneled Access... Reassessment Unchd Site Assessment Clean;Intact;Dry Arterial Line Status Deaccessed;Flushed;Clamped Venous Line Status Deaccessed;Flushed;Clamped Dressing Intervention Other (comment) (dated 07/08/25) Dressing Status Clean;Intact Dressing Change Due 07/15/25 Line Intervention Cap changed Site Condition No complications Dressing CHG patch (chlorhexidine) NEPHROLOGY PROGRESS NOTE [facility] Patient Name: Misael Medina MR#: [id number] : 1950 Admit Date: [id number] Physicians: Donal Will MD (Family); Saeed Zelaya MD (Referring) Attending: Physicians, [facility]* Reason for Consultation/History of Present Illness Patient is a 75yo female with history of JOSUE on CKD III secondary to ATN requiring HD, HFrEF, HTN, Type II DM, hypothyroidism, and morbid obesity. She initially presented to [facility] on 06/25/25 after a mechanical fall with LOC. Her course was complicated by acute respiratory failure requiring intubation (06/25) and MRSA bacteremia requiring perm cath removal for line holiday, and bradycardia. She was transferred to [facility] 06/28/25 for further management We are asked to manage dialysis. Assessment and Plan: 1) JOSUE on CKD III-->likely now ESRD -Started HD in March 2025 -Bx proven ATN (unclear circumstances) -TTS at [facility] with Dr. Leon -R chest perm cath removed BLIND HOOKER (06/26) d/t MRSA bacteremia -Unclear last HD BLIND [facility]OOKER -EDW 96.3kg -Appreciate ICU team's assistance with L femoral temp line placement 06/30 -[facility] 07/01-07/03; transitioned to iHD 07/06 - HD MWF - HD 07/09 via left femoral temp HD line - timing of permcath reinsertion TBD 2) Acute hypoxemic respiratory failure, improved -Intubated at OSH BLIND HOOKER; extubated 03/03 -CXR on admission with small bilateral effusions, mild vascular congestion -Volume removal with ELEVATOR CONSTRUCTOR; stopped Lasix 07/08 d/t poor recent UO -Further care per primary 3) MRSA bacteremia -Blood cx positive at OSH; thought secondary to perm cath (now removed); repeat cx positive x2 06/29 and again 07/02. 07/04 and 07/07 cx NGTD -DESTIN 06/29 with EF 20-25%, mod-severely reduced RV function, mild-mod , mod MR, no pericardial effusion, 0.5 x 2.7 cm mobile mass appears to be attached to the wall of the SVC 2cm from RA interface -MRI brain non-acute, but lumbar MRI with likely developing discitis osteomyelitis at the L3-L4 level with associated epidural phlegmon extending superiorly and inferiorly from the disc space resulting in at least moderate spinal canal stenosis at this level. -Nsx consulted; no plan for surgical intervention -ID following; on Daptomycin/Ceftaroline; to determine timing of new Permcath placement if cultures remain negative, appreciate ID recs 4) Shock, resolved -Components of septic and cardiogenic shock in setting of chronic HFrEF -Home antihypertensive medications on hold -On Isopril from OSH, previously on low dose Dobutamine -Abx as above 5) Secondary hyperparathyroidism -Does not appear that she was on a binder BLIND HOOKER -OK for calcium replacement per ERP 6) Anemia of CKD -Hgb nearly at goal of 10-11, SHANTI not indicated in setting of acute thrombi -IV iron contraindicated in setting of bacteremia 7) Acute metabolic encephalopathy, improved -In setting of infection/sedatives -CT head limited d/t dental hardware/motion degredation -Bacteremia tx as above -Fluid removal with ELEVATOR CONSTRUCTOR 8) Hypernatremia; resolved -Previously hyponatremic -Lasix discontinued as above -Adjusting UF/Na bath with HD 9) SVC thrombus, Acute RIJ thrombus -Noted on DESTIN as above -On heparin gtt 10) HTN -Hydralazine resumed 07/03; placed hold precautions 07/08 d/t soft BP -UF as able with HD Following Subjective Seen and examined on dialysis Tolerating okay, no complaints BP 128/70, UF 1.8L Objective Vitals: BP 114/60 (Patient Position: Lying) Pulse (!) 55 Temp 97.4 F (36.3 C) (Axillary) Resp (!) 22 Ht 5' Wt 90.4 kg (199 lb 4.7 oz) SpO2 93% BMI 38.92 kg/m Intake/Output last 3 shifts: Intake/Output Summary (Last 24 hours) at 07/09/2025 1006 Last data filed at 07/09/2025 0600 Gross per 24 hour Intake 599.86 ml Output -- Net 599.86 ml I/O last 3 completed shifts: In: 2101.8 [P.O.:100; I.V.:969.4; IV Piggyback:1032.4] Out: - Wt Readings from Last 3 Encounters: 07/09/25 90.4 kg (199 lb 4.7 oz) 05/31/17 122 kg (269 lb) Physical Examination: General: Ill appearing elderly female. NAD Neuro: Awake, conversant. No myoclonus. Cardiac: Regular rate, +murmur Pulmonary: Diminished bilaterally unlabored on LFNC Skin: No rashes/lesions on exposed skin Extremities: Minimal LE edema Access: L femoral temp line Results/Medications Reviewed: 07/09/25 10:06 AM: Laboratory, Microbiology, Pathology, Radiology, Cardiology, Medications and Transcriptions Scheduled Meds: atorvastatin 10 mg Tube Nightly ceftaroline (TEFLARO) IVPB 200 mg Intravenous Q8H DAPTOmycin (CUBICIN) IV 10 mg/kg (Adjusted) Intravenous Q48H famotidine 20 mg Tube Nightly hydrALAZINE 10 mg Oral Q8H YOLI lispro insulin 0-15 Units Subcutaneous at bedtime insulin lispro 0-30 Units Subcutaneous TID AC levothyroxine 112 mcg Tube Daily lidocaine 2 patch Transdermal Daily melatonin 5 mg Tube Nightly mirtazapine 7.5 mg Oral Nightly QUEtiapine 25 mg Tube Nightly senna-docusate 1 tablet Tube BID sodium chloride (PF) 10 mL Intracatheter Q8H YOLI sodium chloride (PF) 5 mL Intravenous Q8H YOLI Continuous Infusions: heparin infusion (weight based dosing) 12 Units/kg/hr (07/09/25 0600) heparin sodium chloride 0.9 % sodium chloride 0.9 % Laboratory: Results from last 7 days Lab Units 07/09/25 0411 07/08/25 2047 07/08/25 0359 WBC K/mcL 7.27 8.74 9.96 HGB g/dL 8.9* 9.2* 9.6* HCT % 29.0* 29.3* 30.8* PLT K/mcL 176 169 187 Results from last 7 days Lab Units 07/09/25 0411 07/08/25 0359 07/07/25 0337 SODIUM mmol/L 143 140 141 POTASSIUM mmol/L 4.3 4.2 3.8 CHLORIDE mmol/L 106 102 104 BICARB mmol/L 25 25 25 BUN mg/dL 35* 24 16 CREATININE mg/dL 4.16* 3.52* 2.60* EGFR mL/min/1.73 m2 11* 13* 19* GLUCOSE mg/dL 79 108* 89 CALCIUM mg/dL 8.2* 8.1* 8.3* PHOSPHORUS mg/dL 4.8* 3.6 2.6* Deion Bergeron, [facility] Please use Secure Chat to contact (If I am not signed in, please contact the covering Stopper Maker) [phone] (office, after 5pm/weekends) INFECTIOUS DISEASES DAILY PROGRESS NOTE Patient Name: Misael Medina MR #: [id number] Date of Service: 07/09/2025 Impression/Recommendations: 1) MRSA bacteremia 2) shock 3) ESRD/CKD recently on HD 4) h/o aortic stenosis 5) SVC thrombus 6) infected dialysis catheter 7) DM2 8) L3-4 discitis/osteomyelitis and epidural phlegmon Patient with persistent MRSA bacteremia 06/25-06/27 per OSH records, HD catheter removed 06/26 with purulence at site. Ongoing instability requiring transfer. - changed to daptomycin plus ceftaroline per pharmacy 07/02. CPK and LFTs reviewed, check at least weekly, CPK 32 07/05. Anticipate change back to vancomycin with HD eventually. - blood cx 06/27 positive. Blood cx 06/29 positive, blood cx 07/02 2 of 2 MRSA. Blood cx 07/04 negative, blood cx 07/07 NGTD (checked in case there was skip phenomenon). - pt had HD catheter removed 06/26, there was still infected-looking fluid coming from site on arrival to [facility]. No obvious abscess on CT chest. Improved. - DESTIN 06/29 with SVC thrombus, no obvious other vegetation - right femoral CVC removed 07/02. Acute right internal jugular thrombus on US. May be challenging line placement. - nephrology following, now on iHD. Femoral temp HD catheter in place. Unclear what longer term HD access would be, but as blood cx appear to be clearing, can try to determine next HD line this week. - monitor for joint/back pain. MRI lumbar spine finally able to be obtained, read as L3-L4 discitis/osteomyelitis, epidural phlegmon; neurosurgery consulted, would anticipate conservative management - abnormal head CT 06/30, MRI brain limited by motion, no obvious infarcr - some purulence of left toe initially, d/w wound care. XR reviewed, consider podiatry evaluation if worsens. Now dry and scabbed. - further recommendations pending clinical course. Prognosis appears poor. Palliative care team involved. If aggressive care continues, likely 8 weeks of IV antibiotics at HD followed by PO suppression with doxycycline. Communicated with nephrology. Perpetual Assessment: Misael Medina is a 75 y.o. female on hospital day 11 with MRSA bacteremia. Subjective/Objective: Subjective: Patient was seen and examined in follow-up. Seen at HD. Afebrile. States back feeling a little better. Review of Systems: The following system(s) were reviewed and negative. Pertinent positive and negative findings are noted in the HPI. [x] Const [] Eyes [] ENT [x] Resp [x] CV [x] GI [] [] Neuro [x] Musc [x] Skin [] Psych [] Endo [] Allergy [] Heme/Lymph [] Unable to obtain due to clinical status Physical Examination: BP 128/70 (BP Location: Right arm, Patient Position: Lying) Pulse 73 Temp 97.4 F (36.3 C) (Axillary) Resp (!) 23 Ht 5' Wt 90.4 kg (199 lb 4.7 oz) SpO2 92% BMI 38.92 kg/m General: Ill appearing, awake HEENT: Head: NCAT. Eyes: conjunctiva and sclera clear. OP dry mm Neck: Symmetrical Prior HD catheter site bandaged, clean Respiratory: Diminished, scattered coarse Cardiovascular: Distant S1S2 Abdomen: Soft; obese, nontender, nondistended Extremities: + edema Musculoskeletal: Left toe with small wound Skin: No diffuse rash, pale : Jimenez Lines: Left femoral HD catheter Laboratory and Additional Data Reviewed: Laboratory 07/09/25 8:53 AM Microbiology 07/09/25 8:53 AM Pathology 07/09/25 8:53 AM Radiology 07/09/25 8:53 AM Cardiology 07/09/25 8:53 AM Medications 07/09/25 8:53 AM Transcriptions 07/09/25 8:53 AM Current medications: atorvastatin 10 mg Tube Nightly ceftaroline (TEFLARO) IVPB 200 mg Intravenous Q8H DAPTOmycin (CUBICIN) IV 10 mg/kg (Adjusted) Intravenous Q48H famotidine 20 mg Tube Nightly hydrALAZINE 10 mg Oral Q8H YOLI lispro insulin 0-15 Units Subcutaneous at bedtime insulin lispro 0-30 Units Subcutaneous TID AC levothyroxine 112 mcg Tube Daily lidocaine 2 patch Transdermal Daily melatonin 5 mg Tube Nightly mirtazapine 7.5 mg Oral Nightly QUEtiapine 25 mg Tube Nightly senna-docusate 1 tablet Tube BID sodium chloride (PF) 10 mL Intracatheter Q8H YOLI sodium chloride (PF) 5 mL Intravenous Q8H YOLI Results from last 7 days Lab Units 07/09/25 0411 07/08/25 2047 07/08/25 0359 WBC K/mcL 7.27 8.74 9.96 HGB g/dL 8.9* 9.2* 9.6* HCT % 29.0* 29.3* 30.8* PLT K/mcL 176 169 187 Results from last 7 days Lab Units 07/09/25 0411 07/08/25 0359 07/07/25 0337 SODIUM mmol/L 143 140 141 POTASSIUM mmol/L 4.3 4.2 3.8 CHLORIDE mmol/L 106 102 104 BUN mg/dL 35* 24 16 CREATININE mg/dL 4.16* 3.52* 2.60* GLUCOSE mg/dL 79 108* 89 CALCIUM mg/dL 8.2* 8.1* 8.3* Comments: WBC 7.27, Cr 4.16 LFTs reviewed Jane micro lab: Blood cx 06/25 MRSA Blood cx 06/26 MRSA Blood cx 06/27 (from central line) MRSA Cath tip 06/26 staph aureus (presumed MRSA) Pleural fluid 06/28 final negative Sputum cx 06/25 normal nadia Urine cx 06/25 yeast (not albicans) and GNB Wound cx 03/19/25 (unknown source) staph epi, MRSA, E faecalis, corynebacterium. Wound cx 03/16/25 (unknown source) E casseliflavus, E avium, GPR Blood cx [facility] 06/29 2 of 2 MRSA, vancomycin DELIA 1.0 Blood cx 07/02 2 of 2 MRSA Blood cx 07/04 negative Blood cx 07/07 NGTD CTPA, A/P report Jane reviewed TTE report reviewed DESTIN 06/29: 1. Left ventricular systolic function is severely reduced, with ejection fraction estimated at 20 +/- 5%. 2. Right ventricular systolic function is moderate to severely reduced. 3. There is no thrombus visualized in the left atrial appendage. 4. There is mild to moderate aortic valve stenosis with valve area of 1.5 cm2. 5. There is moderate mitral valve regurgitation. 6. There is no pericardial effusion. 7. A 0.5 x 2.7 cm, mobile mass appears to be attached to the wall of the SVC approximately 2 cm from the right atrial interface. This finding is consistent with thrombus. Associated infection cannot be excluded. CT CAP 06/30: 1. Appropriately positioned ETT and gastric tube. 2. Cardiomegaly, pulmonary edema and bilateral pleural effusions suggesting decompensated CHF. 3. Heavy three-vessel coronary artery calcifications. 4. Complete atelectasis of the bilateral lower lobes adjacent to the large effusions. 5. Common bile duct measuring 10 mm. This may represent reservoir effect related to patient's age and history of cholecystectomy. 6. Ascites in all 4 quadrants and anasarca in the body wall compatible with volume overload. CT head 06/30: 1. Evaluation is limited due to extensive streaking artifact from dental hardware as well as patient motion. Ill-defined hypodensities throughout the bilateral cerebellar hemispheres are nonspecific and could be artifactual. Consider MRI brain if clinically warranted. 2. No gross intracranial hemorrhage. MRI lumbar spine without contrast 07/07: 1. Likely developing discitis osteomyelitis at the L3-L4 level with associated epidural phlegmon extending superiorly and inferiorly from the disc space resulting in at least moderate spinal canal stenosis at this level. 2. No acute fracture. Likely chronic S1 superior endplate fracture. 3. Moderate to severe multilevel degenerative disc disease as described above. MRI brain without contrast 07/07: Evaluation is limited due to patient motion artifact. No gross acute intracranial process. Assessment Detail: The total time spent for this visit was 35 minutes. Greater than 50% of the time was spent in counseling and coordination of care regarding MRSA bacteremia, SVC thrombus. Toño Stewart MD [facility] - Infectious Diseases Office/answering service [phone] 07/09/2025 8:53 AM [facility] 07/09/2025 Misael Villavicenciojaqueline 1950 [id number] Assessment/Plan: Misael Villavicenciojaqueline is a 75 year old female with a history of HFrEF, ESRD, T2DM, Hypertension, Hyperlipidemia, who presented to [facility] on 06/25/25 after suffering a mechanical fall with loss of consciousness. Her course was complicated by respiratory failure requiring intubation on 06/25/25, MRSA bacteremia requiring HD line removal, and symptomatic bradycardia. Patient transferred to [facility] 06/28/25 for management of cardiogenic and septic shock. Resumed iHD 06/30. Transition to CVV 07/01/25 for ongoing fluid removal. Extubated 07/02/25. [facility] consulted for medical management out of ICU. Multifactorial Shock: multifactorial, but primarily distributive/septic shock from MRSA bacteremia, in patient with known heart failure. Required pressor support on admission. Dobutamine weaned off 07/01/25, vasopressors off 07/02/25. Antibiotics as below. Improved. MRSA Bacteremia: persistent MRSA bacteremia 06/25/25-06/27/25 per OSH records, HD catheter removed 06/26/25 with purulence at site. DESTIN 06/29/25 with SVC thrombus, no obvious other vegetation. Blood culture 06/27/25 +MRSA. Repeat blood culture 06/29/25 and 07/02/25 both +MRSA. Right femoral CVC removed 07/02/25. Blood culture 07/04/25 NGTD. MRI brain non acute and L-spine developing discitis osteomyelitis at the L3-L4 level with associated epidural phlegmon extending superiorly and inferiorly from the disc space resulting in at least moderate spinal canal stenosis at this level. Continued Teflaro and Dapto. Blood culture drawn 07/07/25 NGTD ID following. Discitis/Osteomyelitis: seen on MRI L spine. Neurosurgery evaluated; poor surgical candidate, recommended medical management at this time. Continued on IV antibiotics. Abnormal CT head: 06/30/25 CT head with Ill-defined hypodensities throughout the bilateral cerebellar hemispheres are nonspecific and could be artifactual. MRI brain non acute. Fourth Metatarsal Wound: s/p XR L foot 07/02/25 with relatively large superficial subcutaneous wound involving the heel with subcutaneous edematous changes about the distal calf, ankle and foot overall noted. ID following as above. Wound care. Consider Podiatry evaluation if worsens Acute Hypoxic Respiratory Failure: in setting of shock and volume overload. Requiring intubation 06/25/25. CXR (06/29/25) with pulmonary edema with bilateral effusions. Extubated 07/03/25 to LFNC. On 2L NC 07/05/25. Volume management with HD/Lasix. Wean O2 as tolerated. On 2 L NC 07/07/25 Acute on Chronic HFrEF: with baseline EF of 35%, down to 20% here in setting of stress/shock state. Holding all home GDMT given borderline blood pressures. Continued low-dose Hydralazine and Lasix. Volume management with HD. ESRD: s/p CRRT, transitioned to iHD. Nephrology following. Acute Metabolic Encephalopathy: in the setting of above. CT Head (06/30/25) with hypodensities bilateral cerebellar hemispheres. Consider MRI brain when able. Delirium precautions. PT/OT/HOBBER as able. Improved. SVC Thrombus: noted on DESTIN as above with 0.2 x 2.7cm mobile mass attached to the SVC wall. Heparin drip in place. T2DM: per history. Held home oral regimen. SSI in place. Monitor. Anxiety/Depression: per history. Continue home Remeron and Seroquel. Code status: Full -- Palliative team following for Goals of Care discussions with /family. VTE Prophylaxis: Heparin drip. Medication Reconciliation: Reviewed using EMR Current living situation: Home Expected Disposition: TBD Estimated discharge date: TBD Medically Ready for Discharge: No Discussed with at bedside 07/09/25 Subjective: Patient seen and evaluated at bedside this afternoon. Having lunch. in the room. Had dialysis this morning. Reviewed chart. Cr 4.16, Hb 8.9. Monitor for toxicity while on IV antibiotics, Seroquel. Physical Exam: BP 119/69 Pulse 71 Temp 97.1 F (36.2 C) (Oral) Resp 18 Ht 5' Wt 90.4 kg (199 lb 4.7 oz) SpO2 96% BMI 38.92 kg/m General: NAD, chronically ill appearing Eyes: Sclera clear ENT: Neck supple. Cardiovascular: Regular rate, no murmur Respiratory: Clear to auscultation, symmetric air entry. Unlabored on 2L NC. Gastrointestinal: Soft, nondistended, nontender. Positive bowel sounds Genitourinary: No suprapubic tenderness Musculoskeletal: R great toe amputated Skin: Warm, dry. Scattered bruises/wounds to BLE Neuro: awake, alert. Generalized weakness. Psych: Calm and cooperative Current Medications: atorvastatin 10 mg Tube Nightly ceftaroline (TEFLARO) IVPB 200 mg Intravenous Q8H DAPTOmycin (CUBICIN) IV 10 mg/kg (Adjusted) Intravenous Q48H famotidine 20 mg Tube Nightly hydrALAZINE 10 mg Oral Q8H YOLI lispro insulin 0-15 Units Subcutaneous at bedtime insulin lispro 0-30 Units Subcutaneous TID AC levothyroxine 112 mcg Tube Daily lidocaine 2 patch Transdermal Daily melatonin 5 mg Tube Nightly mirtazapine 7.5 mg Oral Nightly QUEtiapine 25 mg Tube Nightly senna-docusate 1 tablet Tube BID sodium chloride (PF) 10 mL Intracatheter Q8H YOLI sodium chloride (PF) 5 mL Intravenous Q8H YOLI Labs, Imaging and Studies reviewed: Results from last 7 days Lab Units 07/09/25 0411 07/08/25 2047 07/08/25 0359 WBC K/mcL 7.27 8.74 9.96 HGB g/dL 8.9* 9.2* 9.6* HCT % 29.0* 29.3* 30.8* PLT K/mcL 176 169 187 Results from last 7 days Lab Units 07/09/25 0411 07/08/25 0359 07/07/25 0337 SODIUM mmol/L 143 140 141 POTASSIUM mmol/L 4.3 4.2 3.8 CHLORIDE mmol/L 106 102 104 BICARB mmol/L 25 25 25 BUN mg/dL 35* 24 16 CREATININE mg/dL 4.16* 3.52* 2.60* EGFR mL/min/1.73 m2 11* 13* 19* GLUCOSE mg/dL 79 108* 89 CALCIUM mg/dL 8.2* 8.1* 8.3* PHOSPHORUS mg/dL 4.8* 3.6 2.6* Results from last 7 days Lab Units 07/05/25 0510 ALT U/L 23 AST U/L 26 ALK PHOS U/L 119 BILIRUBIN TOTAL mg/dL 0.6 [facility] Inpatient Progress Note 07/08/2025 Misael Medina 1950 [id number] Assessment/Plan: Misael Medina is a 75 y.o. female with a history of HFrEF, ESRD, DMII, HTN, HLD, morbid obesity who presented to [facility] on 06/25/25 after suffering a mechanical fall with LOC. Her course was complicated by respiratory failure requiring intubation on 06/25/25, MRSA bacteremia requiring HD line removal, and symptomatic bradycardia. Patient transferred to [facility] 06/28/2025 for management of cardiogenic and septic shock. Resume iHD 06/30. Transition to [facility] 07/01 for ongoing fluid removal. Extubated 07/02. [facility] consulted for medical management out of ICU. Multifactorial shock: multifactorial, but primarily distributive/septic shock from MRSA bacteremia, in patient with known heart failure. Required pressor support on admission. Dobutamine weaned off 07/01/25, vasopressors off 07/02/25. Abx as below. Improved. MRSA Bacteremia: persistent MRSA bacteremia 06/25-06/27/25 per OSH records, HD catheter removed 06/26/25 with purulence at site. DESTIN 06/29/25 with SVC thrombus, no obvious other vegetation. Blood cx 06/27/25 +MRSA. Repeat blood cx 06/29/25 and 07/02/25 both +MRSA. Right femoral CVC removed 07/02/25. Blood cx 07/04/25 NGTD. MRI brain non acute and L-spine developing discitis osteomyelitis at the L3-L4 level with associated epidural phlegmon extending superiorly and inferiorly from the disc space resulting in at least moderate spinal canal stenosis at this level. Continued Teflaro and Dapto. Blood cx drawn 07/07/25 ngtd with blood cx 07/04/25 ngtd. ID following. Discitis/osteomyelitis: seen on MRI L spine. NSG consulted. Continued on iv abx Abnormal CT head: 06/30/25 CT head with Ill-defined hypodensities throughout the bilateral cerebellar hemispheres are nonspecific and could be artifactual. MRI brain non acute. Fourth metatarsal wound: s/p XR L foot 07/02/25 with relatively large superficial subcutaneous wound involving the heel with subcutaneous edematous changes about the distal calf, ankle and foot overall noted. ID following as above. Wound care. Consider podiatry evaluation if worsens Acute hypoxic respiratory failure: in setting of shock and volume overload. Requiring intubation 06/25/25. CXR (06/29) pulmonary edema with bilateral effusions. Extubated 07/03 to LFNC. On 2L NC 07/05/25. Volume management with HD/Lasix. Wean O2 as tolerated. On 2 L NC 07/07/25 Acute on Chronic HFrEF: with baseline LVEF of 35%, down to 20% here in setting of stress/shock state. Holding all home GDMT given borderline blood pressures. Continued low-dose hydralazine and Lasix. Volume management with HD. ESRD: s/p CRRT, transitioning to iHD. Nephrology following. Acute metabolic encephalopathy: in the setting of above. CTH (06/30) hypodensities bilateral cerebellar hemispheres. Consider MRI brain when able. Delirium precautions. PT/OT/HOBBER as able. improved SVC Thrombus: noted on DESTIN as above with 0.2 x 2.7cm mobile mass attached to the SVC wall. Heparin gtt in place. NIDDM2: per history. Held home oral regimen. SSI in place. Monitor. Stable 07/07/25 Anxiety/Depression: per history. Continue home Remeron and Seroquel. Code status: Full -- Palliative team following for GOC discussions with /family. DVT Prophylaxis: heparin gtt Medication Reconciliation: Reviewed using EMR Current living situation: Home Expected Disposition: TBD Estimated discharge date: TBD Medically Ready for Discharge: No Subjective: Patient seen and examined, with labs/imaging personally reviewed and summarized above in the assessment and plan. Denies cp, sob, n/v/c/f/n/v/abd pain, GI or complaints. Denies headache, new neuro changes including weakness, change in sensation, dizziness, lightheadedness. Denied worsening back pain or other new neurological issues. IV controlled substances: Medications requiring intensive monitoring for toxicity daptomycin and ceftaroline Heparin ggt Labs personally reviewed, interpreted: cbc and renal panel personally reviewed [email or web address] Images/Tracings personally reviewed, interpreted:MRI brain non acute and MRI L spine developing discitis osteomyelitis at the L3-L4 level with associated epidural phlegmon extending superiorly and inferiorly from the disc space resulting in at least moderate spinal canal stenosis at this level. Telemetry tracing personally reviewed, interpreted: Discussed with : Specialist/Cd Manufacturing Supervisor documentation reviewed: NSG Physical Exam: BP 95/60 Pulse 78 Temp 97.6 F (36.4 C) (Oral) Resp 16 Ht 5' Wt 90.8 kg (200 lb 2.8 oz) SpO2 92% BMI 39.09 kg/m General: NAD, chronically ill appearing Eyes: Sclera clear ENT: Neck supple. Cardiovascular: Regular rate, no murmur Respiratory: Clear to auscultation, symmetric air entry. Unlabored on 2L NC. Gastrointestinal: Soft, nondistended, nontender. Positive bowel sounds Genitourinary: No suprapubic tenderness Musculoskeletal: R great toe amputated Skin: Warm, dry. Scattered bruises/wounds to BLE Neuro: Lethargic, awakens easily to name. Oriented to self and year. Disoriented to place. Generalized weakness. Psych: Calm and cooperative Current Medications: atorvastatin 10 mg Tube Nightly ceftaroline (TEFLARO) IVPB 200 mg Intravenous Q8H DAPTOmycin (CUBICIN) IV 10 mg/kg (Adjusted) Intravenous Q48H famotidine 20 mg Tube Nightly hydrALAZINE 10 mg Oral Q8H YOLI lispro insulin 0-15 Units Subcutaneous at bedtime insulin lispro 0-30 Units Subcutaneous TID AC levothyroxine 112 mcg Tube Daily lidocaine 2 patch Transdermal Daily melatonin 5 mg Tube Nightly mirtazapine 7.5 mg Oral Nightly QUEtiapine 25 mg Tube Nightly senna-docusate 1 tablet Tube BID sod phos di, mono-K phos mono 250 mg Oral 4x daily sodium chloride (PF) 10 mL Intracatheter Q8H YOLI sodium chloride (PF) 5 mL Intravenous Q8H YOLI Labs, Imaging and Studies reviewed: Results from last 7 days Lab Units 07/08/25 03507/07/25 03307/06/25 0416 WBC K/mcL 9.96 10.56 9.94 HGB g/dL 9.6* 10.0* 9.7* HCT % 30.8* 31.1* 31.5* PLT K/mcL 187 184 208 Results from last 7 days Lab Units 07/08/25 0359 07/07/25 0337 07/06/25 0416 SODIUM mmol/L 140 141 148* POTASSIUM mmol/L 4.2 3.8 4.4 CHLORIDE mmol/L 102 104 109* BICARB mmol/L 25 25 28 BUN mg/dL 24 16 21 CREATININE mg/dL 3.52* 2.60* 2.96* EGFR mL/min/1.73 m2 13* 19* 16* GLUCOSE mg/dL 108* 89 107* CALCIUM mg/dL 8.1* 8.3* 8.1* PHOSPHORUS mg/dL 3.6 2.6* 3.8 Results from last 7 days Lab Units 07/05/25 0510 07/02/25 0922 ALT U/L 23 30 AST U/L 26 27 ALK PHOS U/L 119 149 BILIRUBIN TOTAL mg/dL 0.6 0.7 NEPHROLOGY PROGRESS NOTE [facility] Patient Name: Misael Medina MR#: [id number] : 1950 Admit Date: [id number] Physicians: Donal Will MD (Family); Saeed Zelaya MD (Referring) Attending: Physicians, [facility]* Reason for Consultation/History of Present Illness Patient is a 75yo female with history of JOSUE on CKD III secondary to ATN requiring HD, HFrEF, HTN, Type II DM, hypothyroidism, and morbid obesity. She initially presented to [facility] on 06/25/25 after a mechanical fall with LOC. Her course was complicated by acute respiratory failure requiring intubation (06/25) and MRSA bacteremia requiring perm cath removal for line holiday, and bradycardia. She was transferred to [facility] 06/28/25 for further management We are asked to manage dialysis. Assessment and Plan: 1) JOSUE on CKD III-->likely now ESRD -Started HD in March 2025 -Bx proven ATN (unclear circumstances) -TTS at [facility] with Dr. Leon -R chest perm cath removed BLIND [facility]OOKER (06/26) d/t MRSA bacteremia -Unclear last HD BLIND [facility]OOK[facility] -EDW 96.3kg -Appreciate ICU team's assistance with L femoral temp line placement 06/30 -On CVVH 07/01-07/03 -Tolerated HD well 07/06 despite positional temp line; continue MWF schedule with next HD 07/09, UF as tolerated. Timing of perm cath reinsertion TBD 2) Acute hypoxemic respiratory failure, improved -Intubated at OSH BLIND [facility]OOKER; extubated 03/03 -CXR on admission with small bilateral effusions, mild vascular congestion -Volume removal with ELEVATOR CONSTRUCTOR; stopped Lasix 07/08 d/t poor recent UO -Further care per primary 3) MRSA bacteremia -Blood cx positive at OSH; thought secondary to perm cath (now removed); repeat cx positive x2 06/29 and again 07/02. 07/04 cx NGTD -ID following; now on Daptomycin/Ceftaroline -DESTIN 06/29 with EF 20-25%, mod-severely reduced RV function, mild-mod , mod MR, no pericardial effusion, 0.5 x 2.7 cm mobile mass appears to be attached to the wall of the SVC 2cm from RA interface -MRI brain non-acute, but lumbar MRI with likely developing discitis osteomyelitis at the L3-L4 level with associated epidural phlegmon extending superiorly and inferiorly from the disc space resulting in at least moderate spinal canal stenosis at this level. -Nsx consulted; no plan for surgical intervention 4) Shock, resolved -Components of septic and cardiogenic shock in setting of chronic HFrEF -Home antihypertensive medications on hold -On Isopril from OSH, previously on low dose Dobutamine -Abx as above 5) Secondary hyperparathyroidism -Does not appear that she was on a binder BLIND HOOKER -OK for calcium replacement per ERP 6) Anemia of CKD -Hgb nearly at goal of 10-11, SHANTI not indicated in setting of acute thrombi -IV iron contraindicated in setting of bacteremia 7) Acute metabolic encephalopathy, improved -In setting of infection/sedatives -CT head limited d/t dental hardware/motion degredation -Bacteremia tx as above -Fluid removal with ELEVATOR CONSTRUCTOR 8) Hypernatremia; resolved -Previously hyponatremic -Lasix discontinued as above -Adjusting UF/Na bath with HD 9) SVC thrombus, Acute RIJ thrombus -Noted on DESTIN as above -On heparin gtt 10) HTN -Hydralazine resumed 07/03; placed hold precautions 07/08 d/t soft BP -UF as able with HD Following Palliative following for GOC Will discuss with Dr. Angeles Bergeron will be covering tomorrow Subjective Seen and examined in her room She was resting in bed, awake as her night RN had just taken her AM vitals Stated she slept well; denied complaints Discussed plan for HD; she denied questions/concerns Objective Vitals: BP 103/67 Pulse 86 Temp 97.4 F (36.3 C) (Oral) Resp 17 Ht 5' Wt 90.8 kg (200 lb 2.8 oz) SpO2 90% BMI 39.09 kg/m Intake/Output last 3 shifts: Intake/Output Summary (Last 24 hours) at 07/08/2025 0556 Last data filed at 07/08/2025 0200 Gross per 24 hour Intake 1925.57 ml Output 0 ml Net 1925.57 ml I/O last 3 completed shifts: In: 960 [P.O.:650; I.V.:10; Other:300] Out: 2300 [Other:2300] Wt Readings from Last 3 Encounters: 07/08/25 90.8 kg (200 lb 2.8 oz) 05/31/17 122 kg (269 lb) Physical Examination: General: Ill appearing elderly female. NAD Neuro: Awake, conversant. No myoclonus. Cardiac: Regular rate, +murmur Pulmonary: Diminished bilaterally unlabored on LFNC Skin: No rashes/lesions on exposed skin Extremities: Minimal LE edema Access: L femoral temp line Results/Medications Reviewed: 07/08/25 5:56 AM: Laboratory, Microbiology, Pathology, Radiology, Cardiology, Medications and Transcriptions Scheduled Meds: atorvastatin 10 mg Tube Nightly ceftaroline (TEFLARO) IVPB 200 mg Intravenous Q8H DAPTOmycin (CUBICIN) IV 10 mg/kg (Adjusted) Intravenous Q48H famotidine 20 mg Tube Nightly furosemide 40 mg Oral BID hydrALAZINE 10 mg Oral Q8H YOLI lispro insulin 0-15 Units Subcutaneous at bedtime insulin lispro 0-30 Units Subcutaneous TID AC levothyroxine 112 mcg Tube Daily lidocaine 2 patch Transdermal Daily melatonin 5 mg Tube Nightly mirtazapine 7.5 mg Oral Nightly QUEtiapine 25 mg Tube Nightly senna-docusate 1 tablet Tube BID sod phos di, mono-K phos mono 250 mg Oral 4x daily sodium chloride (PF) 10 mL Intracatheter Q8H YOLI sodium chloride (PF) 5 mL Intravenous Q8H YOLI Continuous Infusions: heparin infusion (weight based dosing) 14 Units/kg/hr (07/08/25 0200) heparin Laboratory: Results from last 7 days Lab Units 07/08/25 0359 07/07/25 0337 07/06/25 0416 WBC K/mcL 9.96 10.56 9.94 HGB g/dL 9.6* 10.0* 9.7* HCT % 30.8* 31.1* 31.5* PLT K/mcL 187 184 208 Results from last 7 days Lab Units 07/08/25 0359 07/07/25 0337 07/06/25 0416 SODIUM mmol/L 140 141 148* POTASSIUM mmol/L 4.2 3.8 4.4 CHLORIDE mmol/L 102 104 109* BICARB mmol/L 25 28 BUN mg/dL 24 16 21 CREATININE mg/dL 3.52* 2.60* 2.96* EGFR mL/min/1.73 m2 13* 19* 16* GLUCOSE mg/dL 108* 89 107* CALCIUM mg/dL 8.1* 8.3* 8.1* PHOSPHORUS mg/dL 3.6 2.6* 3.8 Adrianne Mi PA-C [facility] Please use Secure Chat to contact (If I am not signed in, please contact the covering Stopper Maker) [phone] (office, after 5pm/weekends) [facility] Inpatient Progress Note 07/07/2025 Misael Medina 1950 [id number] Assessment/Plan: Misael Medina is a 75 y.o. female with a history of HFrEF, ESRD, DMII, HTN, HLD, morbid obesity who presented to [facility] on 06/25/25 after suffering a mechanical fall with LOC. Her course was complicated by respiratory failure requiring intubation on 06/25/25, MRSA bacteremia requiring HD line removal, and symptomatic bradycardia. Patient transferred to [facility] 06/28/2025 for management of cardiogenic and septic shock. Resume iHD 06/30. Transition to CVVH 07/01 for ongoing fluid removal. Extubated 07/02. [facility] consulted for medical management out of ICU. Multifactorial shock: multifactorial, but primarily distributive/septic shock from MRSA bacteremia, in patient with known heart failure. Required pressor support on admission. Dobutamine weaned off 07/01/25, vasopressors off 07/02/25. Abx as below. Improved. MRSA Bacteremia: persistent MRSA bacteremia 06/25-06/27/25 per OSH records, HD catheter removed 06/26/25 with purulence at site. DESTIN 06/29/25 with SVC thrombus, no obvious other vegetation. Blood cx 06/27/25 +MRSA. Repeat blood cx 06/29/25 and 07/02/25 both +MRSA. Right femoral CVC removed 07/02/25. Blood cx 07/04/25 NGTD. MRI brain and L-spine ordered. Continued Teflaro and Dapto. Blood cx drawn 07/07/25 with blood cx 07/04/25 ngtd. ID following. Abnormal CT head: 06/30/25 CT head with Ill-defined hypodensities throughout the bilateral cerebellar hemispheres are nonspecific and could be artifactual. MRI brain pending as above. Fourth metatarsal wound: s/p XR L foot 07/02/25 with relatively large superficial subcutaneous wound involving the heel with subcutaneous edematous changes about the distal calf, ankle and foot overall noted. ID following as above. Wound care. Consider podiatry evaluation if worsens Acute hypoxic respiratory failure: in setting of shock and volume overload. Requiring intubation 06/25/25. CXR (06/29) pulmonary edema with bilateral effusions. Extubated 07/03 to NC. On 2L NC 07/05/25. Volume management with HD/Lasix. Wean O2 as tolerated. On 2 L NC 07/07/25 Acute on Chronic HFrEF: with baseline LVEF of 35%, down to 20% here in setting of stress/shock state. Holding all home GDMT given borderline blood pressures. Continued low-dose hydralazine and Lasix. Volume management with HD. ESRD: s/p CRRT, transitioning to iHD. Nephrology following. Acute metabolic encephalopathy: in the setting of above. CTH (06/30) hypodensities bilateral cerebellar hemispheres. Consider MRI brain when able. Delirium precautions. PT/OT/HOBBER as able. improved SVC Thrombus: noted on DESTIN as above with 0.2 x 2.7cm mobile mass attached to the SVC wall. Heparin gtt in place. NIDDM2: per history. Held home oral regimen. SSI in place. Monitor. Stable 07/07/25 Anxiety/Depression: per history. Continue home Remeron and Seroquel. Code status: Full -- Palliative team following for GOC discussions with /family. DVT Prophylaxis: heparin gtt Medication Reconciliation: Reviewed using EMR Current living situation: Home Expected Disposition: TBD Estimated discharge date: TBD Medically Ready for Discharge: No Subjective: Patient new to me, seen and examined, with labs/imaging personally reviewed and summarized above in the assessment and plan. Denies cp, sob, n/v/c/f/n/v/abd pain, GI or complaints. Denies headache, new neuro changes including weakness, change in sensation, dizziness, lightheadedness. Feels better overall IV controlled substances: Medications requiring intensive monitoring for toxicity daptomycin and ceftaroline Heparin ggt Labs personally reviewed, interpreted: cbc and renal panel personally reviewed [email or web address] Images/Tracings personally reviewed, interpreted: Telemetry tracing personally reviewed, interpreted: Discussed with : Specialist/Cd Manufacturing Supervisor documentation reviewed: Physical Exam: BP 110/61 (BP Location: Left arm, Patient Position: Lying) Pulse 74 Temp 97.9 F (36.6 C) (Oral) Resp 18 Ht 5' Wt 89.3 kg (196 lb 13.9 oz) SpO2 93% BMI 38.45 kg/m General: NAD, chronically ill appearing Eyes: Sclera clear ENT: Neck supple. Cardiovascular: Regular rate, no murmur Respiratory: Clear to auscultation, symmetric air entry. Unlabored on 2L NC. Gastrointestinal: Soft, nondistended, nontender. Positive bowel sounds Genitourinary: No suprapubic tenderness Musculoskeletal: R great toe amputated Skin: Warm, dry. Scattered bruises/wounds to BLE Neuro: Lethargic, awakens easily to name. Oriented to self and year. Disoriented to place. Generalized weakness. Psych: Calm and cooperative Current Medications: atorvastatin 10 mg Tube Nightly ceftaroline (TEFLARO) IVPB 200 mg Intravenous Q8H DAPTOmycin (CUBICIN) IV 10 mg/kg (Adjusted) Intravenous Q48H famotidine 20 mg Tube Nightly furosemide 40 mg Oral BID hydrALAZINE 10 mg Oral Q8H YOLI lispro insulin 0-15 Units Subcutaneous at bedtime insulin lispro 0-30 Units Subcutaneous TID AC levothyroxine 112 mcg Tube Daily lidocaine 2 patch Transdermal Daily melatonin 5 mg Tube Nightly mirtazapine 7.5 mg Oral Nightly QUEtiapine 25 mg Tube Nightly senna-docusate 1 tablet Tube BID sodium chloride (PF) 10 mL Intracatheter Q8H YOLI sodium chloride (PF) 5 mL Intravenous Q8H YOLI Labs, Imaging and Studies reviewed: Results from last 7 days Lab Units 07/07/25 0337 07/06/25 0416 07/05/25 0510 WBC K/mcL 10.56 9.94 11.94* HGB g/dL 10.0* 9.7* 10.3* HCT % 31.1* 31.5* 33.1* PLT K/mcL 184 208 210 Results from last 7 days Lab Units 07/07/25 0337 07/06/25 0416 07/05/25 0510 SODIUM mmol/L 141 148* 144 POTASSIUM mmol/L 3.8 4.4 4.1 CHLORIDE mmol/L 104 109* 105 BICARB mmol/L 25 28 27 BUN mg/dL 16 21 14 CREATININE mg/dL 2.60* 2.96* 1.95* EGFR mL/min/1.73 m2 19* 16* 26* GLUCOSE mg/dL 89 107* 108* CALCIUM mg/dL 8.3* 8.1* 8.8 PHOSPHORUS mg/dL 2.6* 3.8 3.1 Results from last 7 days Lab Units 07/05/25 0510 07/02/25 0922 ALT U/L 23 30 AST U/L 26 27 ALK PHOS U/L 119 149 BILIRUBIN TOTAL mg/dL 0.6 0.7 NEPHROLOGY PROGRESS NOTE [facility] Patient Name: Misael Medina MR#: [id number] : 1950 Admit Date: [id number] Physicians: Donal Will MD (Family); Saeed Zelaya MD (Referring) Attending: Physicians, [facility]* Reason for Consultation/History of Present Illness Patient is a 75yo female with history of JOSUE on CKD III secondary to ATN requiring HD, HFrEF, HTN, Type II DM, hypothyroidism, and morbid obesity. She initially presented to [facility] on 06/25/25 after a mechanical fall with LOC. Her course was complicated by acute respiratory failure requiring intubation (06/25) and MRSA bacteremia requiring perm cath removal for line holiday, and bradycardia. She was transferred to [facility] 06/28/25 for further management We are asked to manage dialysis. Assessment and Plan: 1) JOSUE on CKD III-->likely now ESRD -Started HD in March 2025 -Bx proven ATN (unclear circumstances) -TTS at [facility] with Dr. Carolyn Little chest perm cath removed BLIND HOOKER (06/26) d/t MRSA bacteremia -Unclear last HD [facility] -EDW 96.3kg -Appreciate ICU team's assistance with L femoral temp line placement 06/30 -On CVVH 07/01-07/03 -Tolerated HD well 07/06 despite positional temp line; continue MWF schedule with next HD 07/09, UF as tolerated. Timing of perm cath reinsertion TBD 2) Acute hypoxemic respiratory failure, improved -Intubated at OSH [facility]OOK[facility]; extubated 03/03 -CXR on admission with small bilateral effusions, mild vascular congestion -She does still make urine, so resumed Lasix BID 07/04; further volume removal with ELEVATOR CONSTRUCTOR -Further care per primary 3) MRSA bacteremia -Blood cx positive at OSH; thought secondary to perm cath (now removed); repeat cx positive x2 06/29 and again 07/02. 07/04 cx NGTD -ID following; now on Daptomycin/Ceftaroline -DESTIN 06/29 with EF 20-25%, mod-severely reduced RV function, mild-mod , mod MR, no pericardial effusion, 0.5 x 2.7 cm mobile mass appears to be attached to the wall of the SVC 2cm from RA interface -MRI brain/lumbar spine w/o contrast pending 4) Shock, resolved -Components of septic and cardiogenic shock in setting of chronic HFrEF -Home antihypertensive medications on hold -On Isopril from OSH, previously on low dose Dobutamine -Abx as above 5) Secondary hyperparathyroidism -Does not appear that she was on a binder BLIND HOOKER -OK for calcium replacement per ERP 6) Anemia of CKD -Hgb nearly at goal of 10-11, SHANTI not indicated in setting of acute thrombi -IV iron contraindicated in setting of bacteremia 7) Acute metabolic encephalopathy, improved -In setting of infection/sedatives -CT head limited d/t dental hardware/motion degredation -Bacteremia tx as above -Fluid removal with ELEVATOR CONSTRUCTOR 8) Hypernatremia; resolved -Previously hyponatremic -Resumed Lasix 07/04 -Adjusting UF/Na bath with HD 9) SVC thrombus, Acute RIJ thrombus -Noted on DESTIN as above -On heparin gtt 10) HTN -UF with HD as tolerate -Hydralazine resumed 07/03 Following Palliative following for GOC Will discuss with Dr. Reynoso Subjective Seen and examined in her room She was resting in bed; awoke easily to voice States she slept better last night and denied issues with her dialysis treatment. Currently denies pain/SOB Discussed plan for next HD Wednesday; she denied questions/concerns Objective Vitals: BP 110/61 (BP Location: Left arm, Patient Position: Lying) Pulse 74 Temp 97.9 F (36.6 C) (Oral) Resp 18 Ht 5' Wt 89.3 kg (196 lb 13.9 oz) SpO2 93% BMI 38.45 kg/m Intake/Output last 3 shifts: Intake/Output Summary (Last 24 hours) at 07/07/2025 1106 Last data filed at 07/07/2025 0557 Gross per 24 hour Intake 960 ml Output 2300 ml Net -1340 ml I/O last 3 completed shifts: In: 1080 [P.O.:770; I.V.:10; Other:300] Out: 2300 [Other:2300] Wt Readings from Last 3 Encounters: 07/07/25 89.3 kg (196 lb 13.9 oz) 05/31/17 122 kg (269 lb) Physical Examination: General: Ill appearing elderly female. NAD Neuro: Awake, conversant. No myoclonus. Cardiac: Regular rate, +murmur Pulmonary: Diminished bilaterally unlabored on LFNC Skin: No rashes/lesions on exposed skin Extremities: Minimal LE edema Access: L femoral temp line Results/Medications Reviewed: 07/07/25 11:06 AM: Laboratory, Microbiology, Pathology, Radiology, Cardiology, Medications and Transcriptions Scheduled Meds: atorvastatin 10 mg Tube Nightly ceftaroline (TEFLARO) IVPB 200 mg Intravenous Q8H DAPTOmycin (CUBICIN) IV 10 mg/kg (Adjusted) Intravenous Q48H famotidine 20 mg Tube Nightly furosemide 40 mg Oral BID hydrALAZINE 10 mg Oral Q8H YOLI lispro insulin 0-15 Units Subcutaneous at bedtime insulin lispro 0-30 Units Subcutaneous TID AC levothyroxine 112 mcg Tube Daily lidocaine 2 patch Transdermal Daily melatonin 5 mg Tube Nightly mirtazapine 7.5 mg Oral Nightly QUEtiapine 25 mg Tube Nightly senna-docusate 1 tablet Tube BID sodium chloride (PF) 10 mL Intracatheter Q8H YOLI sodium chloride (PF) 5 mL Intravenous Q8H YOLI Continuous Infusions: heparin infusion (weight based dosing) 14 Units/kg/hr (07/07/25 0435) heparin Laboratory: Results from last 7 days Lab Units 07/07/25 0337 07/06/25 0416 07/05/25 0510 WBC K/mcL 10.56 9.94 11.94* HGB g/dL 10.0* 9.7* 10.3* HCT % 31.1* 31.5* 33.1* PLT K/mcL 184 208 210 Results from last 7 days Lab Units 07/07/25 0337 07/06/25 0416 07/05/25 0510 SODIUM mmol/L 141 148* 144 POTASSIUM mmol/L 3.8 4.4 4.1 CHLORIDE mmol/L 104 109* 105 BICARB mmol/L 25 28 27 BUN mg/dL 16 21 14 CREATININE mg/dL 2.60* 2.96* 1.95* EGFR mL/min/1.73 m2 19* 16* 26* GLUCOSE mg/dL 89 107* 108* CALCIUM mg/dL 8.3* 8.1* 8.8 PHOSPHORUS mg/dL 2.6* 3.8 3.1 Adrianne Mi PA-C [facility] Please use Secure Chat to contact (If I am not signed in, please contact the covering Stopper Maker) [phone] (office, after 5pm/weekends) 07/06/25 1815 Post-Hemodialysis Assessment Rinseback Volume (mL) 300 mL Total Liters Processed (L/min) 57.1 L/min Dialyzer Clearance Moderately streaked Duration of Treatment (minutes) 180 minutes Hemodialysis Fluid Given mL (Intake) 300 mL Hemodialysis Fluid Removed mL (Output) 2300 mL Patient Response to Treatment Pt tolerated tx well. Temp Fem line needed frequent repositioning to keep line pressures wnl. Post-Hemodialysis Comments Net 2 L removed, report called to primary nurse. Treatment Status Completed Vital Signs Temp 98.8 F (37.1 C) Temp src Oral Heart Rate 64 Heart Rate Source Monitor Pulse 64 Resp (!) 21 Resp Source Monitor BP (!) 112/49 MAP (mmHg) 69 BP Location Left arm BP Method Automatic Patient Position Lying Hemodialysis Central Line Access Temporary catheter Left Femoral Placement Date/Time: 06/30/25 1500 Inserted by: Jose Tamayo NP Site Prep: Chlorhexidine Site Prep Agent has Completely Dried Before Drape Applied: Yes Local Anesthetic: Injectable Insertion Attempts: 1 Dialysis Catheter Type: Non-tunneled Access... Reassessment Unchd X Site Assessment Clean;Dry;Intact Arterial Line Status Deaccessed;Flushed;Clamped Venous Line Status Deaccessed;Flushed;Clamped Pigtail Line Status Normal saline locked Dressing Intervention New dressing (Dated 07/06/25) Dressing Status Changed;Clean;Intact Dressing Change Due 07/13/25 Line Intervention Flushed;Cap changed;Alcohol cap Site Condition Excoriated (above insertion site) Dressing CHG patch (chlorhexidine);Occlusive [facility] Inpatient Progress Note 07/06/2025 Misael Medina 1950 [id number] Assessment/Plan: Misael Medina is a 75 y.o. female with a history of HFrEF, ESRD, DMII, HTN, HLD, morbid obesity who presented to [facility] on 06/25/25 after suffering a mechanical fall with LOC. Her course was complicated by respiratory failure requiring intubation on 06/25/25, MRSA bacteremia requiring HD line removal, and symptomatic bradycardia. Patient transferred to [facility] 06/28/2025 for management of cardiogenic and septic shock. Resume iHD 06/30. Transition to CVV 07/01 for ongoing fluid removal. Extubated 07/02. [facility] consulted for medical management out of ICU. Multifactorial shock: multifactorial, but primarily distributive/septic shock from MRSA bacteremia, in patient with known heart failure. Required pressor support on admission. Dobutamine weaned off 07/01/25, vasopressors off 07/02/25. Abx as below. Improved. MRSA Bacteremia: persistent MRSA bacteremia 06/25-06/27/25 per OSH records, HD catheter removed 06/26/25 with purulence at site. DESTIN 06/29/25 with SVC thrombus, no obvious other vegetation. Blood cx 06/27/25 +MRSA. Repeat blood cx 06/29/25 and 07/02/25 both +MRSA. Right femoral CVC removed 07/02/25. Blood cx 07/04/25 NGTD. MRI brain and L-spine ordered. Continued Teflaro and Dapto. ID following. Abnormal CT head: 06/30/25 CT head with Ill-defined hypodensities throughout the bilateral cerebellar hemispheres are nonspecific and could be artifactual. MRI brain ordered. Fourth metatarsal wound: s/p XR L foot 07/02/25 with relatively large superficial subcutaneous wound involving the heel with subcutaneous edematous changes about the distal calf, ankle and foot overall noted. ID following as above. Wound care. Consider podiatry evaluation if worsens Acute hypoxic respiratory failure: in setting of shock and volume overload. Requiring intubation 06/25/25. CXR (06/29) pulmonary edema with bilateral effusions. Extubated 07/03 to LFNC. On 2L NC 07/05/25. Volume management with HD/Lasix. Wean O2 as tolerated. Acute on Chronic HFrEF: with baseline LVEF of 35%, down to 20% here in setting of stress/shock state. Holding all home GDMT given borderline blood pressures. Continued low-dose hydralazine and Lasix. Volume management with HD. ESRD: s/p CRRT, transitioning to iHD. Nephrology following. Acute metabolic encephalopathy: in the setting of above. CTH (06/30) hypodensities bilateral cerebellar hemispheres. Consider MRI brain when able. Delirium precautions. PT/OT/HOBBER as able. SVC Thrombus: noted on DESTIN as above with 0.2 x 2.7cm mobile mass attached to the SVC wall. Heparin gtt in place. NIDDM2: per history. Held home oral regimen. SSI in place. Monitor. Anxiety/Depression: per history. Continue home Remeron and Seroquel. Code status: Full -- Palliative team following for C discussions with /family. DVT Prophylaxis: heparin gtt Thank you for allowing us to participate in the care of your patient. For any questions, please call the number of the covering hospitalist listed under the treatment team in care connect. Medication Reconciliation: Reviewed using EMR Current living situation: Home Expected Disposition: TBD Estimated discharge date: TBD Medically Ready for Discharge: No Subjective: Patient with mild disorientation Denies pain. States she's breathing comfortably (on 2L NC). Denies abdominal pain, chest pain, SOB, nausea. No family at bedside. Discussed with ID if pt is stable enough for the MRIs. MRI ordered Physical Exam: BP 127/76 (BP Location: Left arm, Patient Position: Lying) Pulse 70 Temp 97.7 F (36.5 C) (Oral) Resp 18 Ht 5' Wt 90.5 kg (199 lb 8.3 oz) SpO2 96% BMI 38.97 kg/m General: NAD, chronically ill appearing Eyes: Sclera clear ENT: Neck supple. Cardiovascular: Regular rate, no murmur Respiratory: Clear to auscultation, symmetric air entry. Unlabored on 2L NC. Gastrointestinal: Soft, nondistended, nontender. Positive bowel sounds Genitourinary: No suprapubic tenderness Musculoskeletal: R great toe amputated Skin: Warm, dry. Scattered bruises/wounds to BLE Neuro: Lethargic, awakens easily to name. Oriented to self and year. Disoriented to place. Generalized weakness. Psych: Calm and cooperative Current Medications: atorvastatin 10 mg Tube Nightly ceftaroline (TEFLARO) IVPB 200 mg Intravenous Q8H DAPTOmycin (CUBICIN) IV 10 mg/kg (Adjusted) Intravenous Q48H famotidine 20 mg Tube Nightly furosemide 40 mg Oral BID hydrALAZINE 10 mg Oral Q8H YOLI lispro insulin 0-15 Units Subcutaneous at bedtime insulin lispro 0-30 Units Subcutaneous TID AC levothyroxine 112 mcg Tube Daily lidocaine 2 patch Transdermal Daily melatonin 5 mg Tube Nightly mirtazapine 7.5 mg Oral Nightly QUEtiapine 25 mg Tube Nightly senna-docusate 1 tablet Tube BID sodium chloride (PF) 10 mL Intracatheter Q8H YOLI sodium chloride (PF) 5 mL Intravenous Q8H YOLI Labs, Imaging and Studies reviewed: Results from last 7 days Lab Units 07/06/25 0416 07/05/25 0510 07/04/25 0331 WBC K/mcL 9.94 11.94* 17.64* HGB g/dL 9.7* 10.3* 11.2* HCT % 31.5* 33.1* 35.3* PLT K/mcL 208 210 239 Results from last 7 days Lab Units 07/06/25 0416 07/05/25 0510 07/04/25 0331 SODIUM mmol/L 148* 144 136 POTASSIUM mmol/L 4.4 4.1 4.5 CHLORIDE mmol/L 109* 105 101 BICARB mmol/L 28 27 17* BUN mg/dL 21 14 16 CREATININE mg/dL 2.96* 1.95* 2.10* EGFR mL/min/1.73 m2 16* 26* 24* GLUCOSE mg/dL 107* 108* 112* CALCIUM mg/dL 8.1* 8.8 8.8 PHOSPHORUS mg/dL 3.8 3.1 3.6 Results from last 7 days Lab Units 07/05/25 0510 07/02/25 0922 ALT U/L 23 30 AST U/L 26 27 ALK PHOS U/L 119 149 BILIRUBIN TOTAL mg/dL 0.6 0.7 INFECTIOUS DISEASES DAILY PROGRESS NOTE Patient Name: Misael Medina MR #: [id number] Date of Service: 07/06/2025 Impression/Recommendations: 1) MRSA bacteremia 2) shock 3) ESRD/CKD recently on HD 4) h/o aortic stenosis 5) SVC thrombus 6) infected dialysis catheter 7) DM2 Patient with persistent MRSA bacteremia 06/25-06/27 per OSH records, HD catheter removed 06/26 with purulence at site. Ongoing instability requiring transfer. - changed to daptomycin plus ceftaroline per pharmacy 07/02. CPK and LFTs reviewed, check at least weekly, CPK 32 07/05. - blood cx 06/27 positive. Blood cx 06/29 positive, blood cx 07/02 2 of 2 MRSA. Blood cx 07/04 NGTD. High grade bacteremia may be difficult to clear with thrombi. - pt had HD catheter removed 06/26, there was still infected-looking fluid coming from site. No obvious abscess on CT chest. Improved. Asked RN to change dressing. - DESTIN 06/29 with SVC thrombus, no obvious other vegetation - right femoral CVC removed 07/02. Acute right internal jugular thrombus on US. May be challenging line placement. - nephrology following, now on iHD. Femoral temp HD catheter in place. Unclear what longer term HD access would be. - monitor for joint/back pain; RN states pt c/o back pain. If able to tolerate, would consider MRI lumbar spine without contrast due to ESRD - abnormal head CT 06/30, consider MRI brain when able. - some purulence of left toe, d/w wound care. XR reviewed, consider podiatry evaluation if worsens. - further recommendations pending clinical course. Prognosis appears poor. Palliative care team involved. Discussed with SHON Galan. Perpetual Assessment: Misael Medina is a 75 y.o. female on hospital day 8 with MRSA bacteremia. Subjective/Objective: Subjective: Patient was seen and examined in follow-up. Remains drowsy and restless. Afebrile. Now on 3 red. Review of Systems: The following system(s) were reviewed and negative. Pertinent positive and negative findings are noted in the HPI. [] Const [] Eyes [] ENT [] Resp [] CV [] GI [] [] Neuro [] Musc [] Skin [] Psych [] Endo [] Allergy [] Heme/Lymph [x] Unable to obtain due to clinical status Physical Examination: BP (!) 104/58 (BP Location: Left arm) Pulse (!) 49 Temp 97.4 F (36.3 C) (Oral) Resp 18 Ht 5' Wt 90.5 kg (199 lb 8.3 oz) SpO2 100% BMI 38.97 kg/m General: Ill appearing, restless HEENT: Head: NCAT. Eyes: conjunctiva and sclera clear. OP dry mm Neck: Symmetrical Prior HD catheter site bandaged, clean Respiratory: Diminished, scattered coarse Cardiovascular: Distant S1S2 Abdomen: Soft; obese, nontender, nondistended Extremities: + edema Musculoskeletal: Left toe with small wound Skin: No diffuse rash, pale : Jimenez Lines: Left femoral HD catheter Laboratory and Additional Data Reviewed: Laboratory 07/06/25 8:58 AM Microbiology 07/06/25 8:58 AM Pathology 07/06/25 8:58 AM Radiology 07/06/25 8:58 AM Cardiology 07/06/25 8:58 AM Medications 07/06/25 8:58 AM Transcriptions 07/06/25 8:58 AM Current medications: atorvastatin 10 mg Tube Nightly ceftaroline (TEFLARO) IVPB 200 mg Intravenous Q8H DAPTOmycin (CUBICIN) IV 10 mg/kg (Adjusted) Intravenous Q48H famotidine 20 mg Tube Nightly furosemide 40 mg Oral BID hydrALAZINE 10 mg Oral Q8H YOLI lispro insulin 0-15 Units Subcutaneous at bedtime insulin lispro 0-30 Units Subcutaneous TID AC levothyroxine 112 mcg Tube Daily lidocaine 2 patch Transdermal Daily melatonin 5 mg Tube Nightly mirtazapine 7.5 mg Oral Nightly QUEtiapine 25 mg Tube Nightly senna-docusate 1 tablet Tube BID sodium chloride (PF) 10 mL Intracatheter Q8H YOLI sodium chloride (PF) 5 mL Intravenous Q8H YOLI Results from last 7 days Lab Units 07/06/25 0416 07/05/25 0510 07/04/25 0331 WBC K/mcL 9.94 11.94* 17.64* HGB g/dL 9.7* 10.3* 11.2* HCT % 31.5* 33.1* 35.3* PLT K/mcL 208 210 239 Results from last 7 days Lab Units 07/06/25 0416 07/05/25 0510 07/04/25 0331 SODIUM mmol/L 148* 144 136 POTASSIUM mmol/L 4.4 4.1 4.5 CHLORIDE mmol/L 109* 105 101 BUN mg/dL 21 14 16 CREATININE mg/dL 2.96* 1.95* 2.10* GLUCOSE mg/dL 107* 108* 112* CALCIUM mg/dL 8.1* 8.8 8.8 Comments: WBC 11.94, Cr 1.95 LFTs reviewed [facility] micro lab: Blood cx 06/25 MRSA Blood cx 06/26 MRSA Blood cx 06/27 (from central line) MRSA Cath tip 06/26 staph aureus (presumed MRSA) Pleural fluid 06/28 final negative Sputum cx 06/25 normal nadia Urine cx 06/25 yeast (not albicans) and GNB Wound cx 03/19/25 (unknown source) staph epi, MRSA, E faecalis, corynebacterium. Wound cx 03/16/25 (unknown source) E casseliflavus, E avium, GPR Blood cx [facility] 06/29 2 of 2 MRSA, vancomycin DELIA 1.0 Blood cx 07/02 2 of 2 MRSA Blood cx 07/04 NGTD CTPA, A/P report [facility] reviewed TTE report reviewed DESTIN 06/29: 1. Left ventricular systolic function is severely reduced, with ejection fraction estimated at 20 +/- 5%. 2. Right ventricular systolic function is moderate to severely reduced. 3. There is no thrombus visualized in the left atrial appendage. 4. There is mild to moderate aortic valve stenosis with valve area of 1.5 cm2. 5. There is moderate mitral valve regurgitation. 6. There is no pericardial effusion. 7. A 0.5 x 2.7 cm, mobile mass appears to be attached to the wall of the SVC approximately 2 cm from the right atrial interface. This finding is consistent with thrombus. Associated infection cannot be excluded. CT CAP 06/30: 1. Appropriately positioned ETT and gastric tube. 2. Cardiomegaly, pulmonary edema and bilateral pleural effusions suggesting decompensated CHF. 3. Heavy three-vessel coronary artery calcifications. 4. Complete atelectasis of the bilateral lower lobes adjacent to the large effusions. 5. Common bile duct measuring 10 mm. This may represent reservoir effect related to patient's age and history of cholecystectomy. 6. Ascites in all 4 quadrants and anasarca in the body wall compatible with volume overload. CT head 06/30: 1. Evaluation is limited due to extensive streaking artifact from dental hardware as well as patient motion. Ill-defined hypodensities throughout the bilateral cerebellar hemispheres are nonspecific and could be artifactual. Consider MRI brain if clinically warranted. 2. No gross intracranial hemorrhage. Assessment Detail: The total time spent for this visit was 35 minutes. Greater than 50% of the time was spent in counseling and coordination of care regarding MRSA bacteremia, SVC thrombus. Toño Stewart MD [facility] - Infectious Diseases Office/answering service [phone] 07/06/2025 8:58 AM NEPHROLOGY PROGRESS NOTE [facility] Patient Name: Misael Medina MR#: [id number] : 1950 Admit Date: [id number] Physicians: Donal Will MD (Family); Saeed Zelaya MD (Referring) Attending: Physicians, [facility]* Reason for Consultation/History of Present Illness Patient is a 75yo female with history of JOSUE on CKD III secondary to ATN requiring HD, HFrEF, HTN, Type II DM, hypothyroidism, and morbid obesity. She initially presented to [facility] on 06/25/25 after a mechanical fall with LOC. Her course was complicated by acute respiratory failure requiring intubation (06/25) and MRSA bacteremia requiring perm cath removal for line holiday, and bradycardia. She was transferred to [facility] 06/28/25 for further management We are asked to manage dialysis. Assessment and Plan: 1) JOSUE on CKD III-->likely now ESRD -Started HD in March 2025 -Bx proven ATN (unclear circumstances) -TTS at [facility] with Dr. Leon -R chest perm cath removed [facility]IND HOOKER (06/26) d/t MRSA bacteremia -Unclear last HD [facility]OOKER -EDW 96.3kg -Appreciate ICU team's assistance with L femoral temp line placement 06/30 -On CVVH 07/01-07/03 -Tolerated HD well 07/04; continue MWF schedule with HD later today, UF as tolerated. Timing of perm cath reinsertion TBD 2) Acute hypoxemic respiratory failure, improved -Intubated at OSH [facility]IND HOOKER; extubated 03/03 -CXR on admission with small bilateral effusions, mild vascular congestion -She does still make urine, so resumed Lasix BID 07/04; further volume removal with ELEVATOR CONSTRUCTOR -Further care per primary 3) MRSA bacteremia -Blood cx positive at OSH; thought secondary to perm cath (now removed); repeat cx positive x2 06/29 and again 07/02. 07/04 cx NGTD -ID following; now on Daptomycin/Ceftaroline -DESTIN 06/29 with EF 20-25%, mod-severely reduced RV function, mild-mod , mod MR, no pericardial effusion, 0.5 x 2.7 cm mobile mass appears to be attached to the wall of the SVC 2cm from RA interface 4) Shock, resolved -Components of septic and cardiogenic shock in setting of chronic HFrEF -Home antihypertensive medications on hold -On Isopril from OSH, previously on low dose Dobutamine -Abx as above 5) Secondary hyperparathyroidism -Does not appear that she was on a binder BLIND HOOKER -OK for calcium replacement per ERP 6) Anemia of CKD -Hgb nearly at goal of 10-11, SHANTI not indicated in setting of acute thrombi -IV iron contraindicated in setting of bacteremia 7) Acute metabolic encephalopathy, improved -In setting of infection/sedatives -CT head limited d/t dental hardware/motion degredation -Bacteremia tx as above -Fluid removal with ELEVATOR CONSTRUCTOR 8) Hyponatremia, resolved -Resumed Lasix 07/04 -Adjusting UF/Na bath with HD 9) SVC thrombus, Acute RIJ thrombus -Noted on DESTIN as above -On heparin gtt 10) HTN -UF with HD as tolerate -Hydralazine resumed 07/03 11) Hypernatremia, mild -Adjusting Na bath with HD -Encourage PO fluid intake Following Palliative following for GOC Will discuss with Dr. Vernon After today, next HD 07/09 Subjective Seen and examined in her room She awoke easily to voice; denied complaints, but stated she didn't sleep well d/t staff interruptions Discussed plan for HD later today; she denied questions/concerns She was provided with a warm blanket per her request Objective Vitals: BP 109/72 Pulse 69 Temp 97.7 F (36.5 C) (Oral) Resp 16 Ht 5' Wt 90 kg (198 lb 6.6 oz) SpO2 95% BMI 38.75 kg/m Intake/Output last 3 shifts: Intake/Output Summary (Last 24 hours) at 07/06/2025 0557 Last data filed at 07/05/20252004 Gross per 24 hour Intake 330.08 ml Output -- Net 330.08 ml I/O last 3 completed shifts: In: 981.8 [P.O.:50; I.V.:434.9; Other:300; IV Piggyback:196.8] Out: 2800 [Other:2800] Wt Readings from Last 3 Encounters: 07/05/25 90 kg (198 lb 6.6 oz) 05/31/17 122 kg (269 lb) Physical Examination: General: Ill appearing elderly female. NAD Neuro: Awake, conversant. No myoclonus. Cardiac: Regular rate, +murmur Pulmonary: Diminished bilaterally unlabored on LFNC Skin: No rashes/lesions on exposed skin Extremities: Minimal LE edema Access: L femoral temp line Results/Medications Reviewed: 07/06/25 5:57 AM: Laboratory, Microbiology, Pathology, Radiology, Cardiology, Medications and Transcriptions Scheduled Meds: atorvastatin 10 mg Tube Nightly ceftaroline (TEFLARO) IVPB 200 mg Intravenous Q8H DAPTOmycin (CUBICIN) IV 10 mg/kg (Adjusted) Intravenous Q48H famotidine 20 mg Tube Nightly furosemide 40 mg Oral BID hydrALAZINE 10 mg Oral Q8H YOLI lispro insulin 0-15 Units Subcutaneous at bedtime insulin lispro 0-30 Units Subcutaneous TID AC levothyroxine 112 mcg Tube Daily lidocaine 2 patch Transdermal Daily melatonin 5 mg Tube Nightly mirtazapine 7.5 mg Oral Nightly QUEtiapine 25 mg Tube Nightly senna-docusate 1 tablet Tube BID sodium chloride (PF) 10 mL Intracatheter Q8H YOLI sodium chloride (PF) 5 mL Intravenous Q8H YOLI Continuous Infusions: heparin infusion (weight based dosing) 12 Units/kg/hr (07/05/252053) heparin Laboratory: Results from last 7 days Lab Units 07/06/25 0416 07/05/25 0510 07/04/25 0331 WBC K/mcL 9.94 11.94* 17.64* HGB g/dL 9.7* 10.3* 11.2* HCT % 31.5* 33.1* 35.3* PLT K/mcL 208 210 239 Results from last 7 days Lab Units 07/06/25 0416 07/05/25 0510 07/04/25 0331 SODIUM mmol/L 148* 144 136 POTASSIUM mmol/L 4.4 4.1 4.5 CHLORIDE mmol/L 109* 105 101 BICARB mmol/L 28 27 17* BUN mg/dL 21 14 16 CREATININE mg/dL 2.96* 1.95* 2.10* EGFR mL/min/1.73 m2 16* 26* 24* GLUCOSE mg/dL 107* 108* 112* CALCIUM mg/dL 8.1* 8.8 8.8 PHOSPHORUS mg/dL 3.8 3.1 3.6 Adrianne Mi PA-C [facility] Please use Secure Chat to contact (If I am not signed in, please contact the covering Stopper Maker) [phone] (office, after 5pm/weekends) Palliative Medicine Social Work - Follow Up Visit LI Neumann, CHUCKY [facility] Assessment / Recommendations Visit Type: General Support and Information Gathering Interventions & Topics Discussed: Reflective listening Identified supports Normalization and Emotional Validation Discussion about Advance Care Planning/Directives Identified Clinical Considerations from Assessment: Adjustment to illness Comorbidities/other stressors Details from Interaction: This palliative social science teacher and Dr. Chayo Mcfarland met briefly at Ed/pt's bedside. No family members or loved ones present. Ed has been transferred out of the MICU to step-down following yesterday's encounter. She does not engage with palliative care team members. Her breakfast tray is at bedside, untouched. Palliative team members were able to reach Jonny/spouse. He endorses speaking with the MICU team yesterday, comments on her lack of appetite in the hospital. He shares detailed overview of the foods she ate prior to admission. He shares during their visit on Wednesday, he noticed she was agitated/fidgety as well as not sleeping. Jonny also states she is getting weaker. Jonny states he is coming to visit later today. Encouraged ongoing conversations to include Jonny, their sons, and [id number]. Jonny notes one of their sons has been [id number] for work, reportedly returns home later today. Patient Reported Symptom Assessment 1. Mood: Not able to assess due to current clinical situation. 2. Anxiety: Not able to assess due to current clinical situation. 3. Overall Wellbeing: Not able to assess due to current clinical situation. Recommendations/Interventions: No specific recommendations at this time. Palliative SAFETY FIRE BOSS will remain available to support family, as indicated. Implications for Medical Care/Decision Making: If surrogate decision making is needed, Legal next of kin is Jonny Medina/spouse ([phone]). Follow-Up: Ongoing psychosocial support related to current clinical situation and complex care decisions. Palliative medicine team will continue to follow, though no formal follow-up is arranged at this time. CHUCKY Neumann [facility] Palliative Medicine Office # [phone] Today I visited Misael Medina, 75 y.o. year old Female from [place] [address] with identified taoism preference of No rastafarian on file. Narrative Visited with patient/Ed and her spouse/Jonny at bedside, providing support. Ed expressed a sense of exhaustion and discouragement, with a sense of loss and lack of control around mobility (she'd been able to get around before this hospitalization, so this feels like a big setback). She didn't share in detail about her medical issues, but Jonny shared that she has problems with heart, lung, and liver function, but is hoping that if she can eat more, she can gain some strength/move toward recovery (she hasn't had an appetite today). Explored sources of strength/resilience and provided blessing as well as information regarding pastoral care services, 24/7 availability, and how to contact. Plan & Recommendations Pop Singer will remain available to provide spiritual support as needed. Consult Pop Singer if patient or family requests. Palliative visit Surrogate decision making Spouse/Jonny would be surrogate decision maker by default Significant relationships Spouse; two sons (see below) Goals of care / awareness of condition/prognosis In process Psychosocial Context Social factors/information impacting health services (coping, relationships, cultural concerns, etc) Lives with spouse at home; grandson stays on weekends while working; two sons and a [id number] in nursing who helps family members understand medical information Expressed emotions informing / impacting care Exhaustion; sense of loss d/t mobility change Spiritual History Spiritual / Uatsdin / Existential orientation or affiliation(s) None Spiritual / Uatsdin / Existential beliefs / practices / resources Personal belief system; importance of family connections Relevance to healthcare low Spiritual Assessment of patient Primary spiritual need is MEANING & DIRECTION . Interventions employed in visit include named and reflected back emotions to facilitate clarity and demonstrated support and guidance/came alongside patient/family member Outcomes achieved include Identified stressors and sources of support Rev. Adi Wylie DMin, [facility] Advance Pop Singer Practitioner [facility] Palliative Medicine FULL PERSONAL LINES SALES REP ASSESSMENT [id number] Physical Therapy PHYSICAL THERAPY TREATMENT NOTE Skilled Therapy Needs After Discharge Anticipate Resolution of Current Assessment Limitations Including: Pain, Delirium, Mechanical Barriers, Social Support Are medical doctor md/medical director Therapy Services Needed After Discharge: Yes Intensity of medical doctor md/medical director Therapy: Up to 5 days per week Anticipated Duration of medical doctor md/medical director Therapy: Duration 10 - 30 days PT DME Recommendation: To be determined at next level of care Rehab Potential: Good, For goals Outcomes Measures Prior Function - Basic Mobility Raw Score: 24 Points Prior Function - Basic Mobility % Impaired: 0% AM-PAC Basic Mobility Raw Score: 8 Points AM-PAC Basic Mobility % Impaired: 85.35% Therapy Precautions General Rehab Precautions: Fall risk Balance Sitting Balance - Static: Stand by assist, Contact guard assist Sitting Balance - Dynamic: Contact guard assist, Minimal assist Sitting Balance Treatment: weight shifting anterior, weight shifting left, weight shifting right, postural re-education Skilled Intervention Provided: verbal cues, facilitation, patient education, neuromuscular re-education For: UE positioning, initiation of tasks, self-monitoring during activity, sequencing of movement, trunk control, weight shifting Resulting in: improved activity tolerance, increased upright tolerance for functional tasks Bed Mobility Rolling: Maximal assist Supine to Sit: Maximal assist, Head of bed elevated Sit to Supine: Maximal assist, 2 person assist, Head of bed flat Outboard Motor Assembler: bed positioning mechanics, patient slide sheet / friction-reducing device Skilled Intervention Provided: verbal cues, facilitation, monitoring patient response with activity, provided step by step instructions, patient education For: UE positioning, initiation of task, logroll technique, safety during functional tasks, safe use of bedrails and/or equipment, self-monitoring during activity, sequencing of movement, weight shifting Resulting in: neutral response to intervention Exercise Seated Exercises: x10 (AP, SAQ, hip flexion, shoulder flexion/elevation. Increased time and frequent verbal/tacticle cues were requried.) Skilled Intervention Provided: verbal cues, facilitation, patient education For: achieving full ROM as tolerated, number of repetitions Resulting in: neutral response to intervention Home Living Obtained Home Living and PLOF info from: Patient Lives With: Spouse Type of Home: House Home Layout: Two level, Bed on main level Steps to enter home: Yes Rails to enter home: 1 rail Number of stairs to enter home: 4 Mobility Equipment: (Does not use any assistive devices) Prior Level of Function Level of [place] - Transfers/Ambulation/Mobility: Independent with functional transfers, Independent with household ambulation Level of Boy[place] - ADLs: Independent Level of [place] - Homemaking: Independent Driving: Patient drives For complete objective data, detailed plan of care and patient education refer to: PT Evaluation flowsheet, PT Evaluation and Treatment flowsheet, PT Treatment flowsheet, patient Plan of Care, Plan of Care progress note, and Patient Education. This note stands as the current Discharge Summary upon patient discharge from the hospital or completion of Physical Therapy Plan of Care. Cosigned by Radha Luna, PT at 07/05/2025 3:24 PM EDT [facility] Inpatient Progress Note 07/05/2025 Misael Medina 1950 [id number] Assessment/Plan: Misael Medina is a 75 y.o. female with a history of HFrEF, ESRD, DMII, HTN, HLD, morbid obesity who presented to [facility] on 06/25/25 after suffering a mechanical fall with LOC. Her course was complicated by respiratory failure requiring intubation on 06/25/25, MRSA bacteremia requiring HD line removal, and symptomatic bradycardia. Patient transferred to [facility] 06/28/2025 for management of cardiogenic and septic shock. Resume iHD 06/30. Transition to CVVH 07/01 for ongoing fluid removal. [facility]. Multifactorial shock: multifactorial, but primarily distributive/septic shock from MRSA bacteremia, in patient with known heart failure. Required pressor support on admission. Dobutamine weaned off 07/01/25, vasopressors off 07/02/25. Abx as below. Improved. MRSA Bacteremia: persistent MRSA bacteremia 06/25-06/27/25 per OSH records, HD catheter removed 06/26/25 with purulence at site. DESTIN 06/29/25 with SVC thrombus, no obvious other vegetation. Blood cx 06/27/25 +MRSA. Repeat blood cx 06/29/25 and 07/02/25 both +MRSA. Right femoral CVC removed 07/02/25. Blood cx 07/04/25 NGTD. Plan for MRI brain and L-spine when able. Continued Teflaro and Dapto. ID following. Fourth metatarsal wound: s/p XR L foot 07/02/25 with relatively large superficial subcutaneous wound involving the heel with subcutaneous edematous changes about the distal calf, ankle and foot overall noted. ID following as above. Wound care. Consider podiatry evaluation if worsens Acute hypoxic respiratory failure: in setting of shock and volume overload. Requiring intubation 06/25/25. CXR (06/29) pulmonary edema with bilateral effusions. Extubated 07/03 to LFNC. On 2L NC 07/05/25. Volume management with HD/Lasix. Wean O2 as tolerated. Acute on Chronic HFrEF: with baseline LVEF of 35%, down to 20% here in setting of stress/shock state. Holding all home GDMT given borderline blood pressures. Continued low-dose hydralazine and Lasix. Volume management with HD. ESRD: s/p CRRT, transitioning to iHD. Nephrology following. Acute metabolic encephalopathy: in the setting of above. CTH (06/30) hypodensities bilateral cerebellar hemispheres. Consider MRI brain when able. Delirium precautions. PT/OT/HOBBER as able. SVC Thrombus: noted on DESTIN as above with 0.2 x 2.7cm mobile mass attached to the SVC wall. Heparin gtt in place. NIDDM2: per history. Held home oral regimen. SSI in place. Monitor. Anxiety/Depression: per history. Continue home Remeron and Seroquel. Code status: Full -- Palliative team following for [facility] discussions with /family. DVT Prophylaxis: heparin gtt Thank you for allowing us to participate in the care of your patient. For any questions, please call the number of the covering hospitalist listed under the treatment team in care connect. Medication Reconciliation: Reviewed using EMR Current living situation: Home Expected Disposition: TBD Estimated discharge date: TBD Medically Ready for Discharge: No Subjective: Patient with mild disorientation. Endorses low back pain. States she's breathing comfortably (on 2L NC). Denies abdominal pain, chest pain, SOB, nausea. No family at bedside. Discussed with ID physician -- plan for MRI brain/L-spine when more stable, continue current IV abx. Palliative team assisting with GOC discussions with /family. Personally reviewed vitals, labs and other provider notes including Nephrology, Palliative and ID. Physical Exam: BP 124/74 (BP Location: Left arm, Patient Position: Lying) Pulse 63 Temp 97.9 F (36.6 C) (Oral) Resp 16 Ht 5' Wt 90 kg (198 lb 6.6 oz) SpO2 95% BMI 38.75 kg/m General: NAD, chronically ill appearing Eyes: Sclera clear ENT: Neck supple. Cardiovascular: Regular rate, no murmur Respiratory: Clear to auscultation, symmetric air entry. Unlabored on 2L NC. Gastrointestinal: Soft, nondistended, nontender. Positive bowel sounds Genitourinary: No suprapubic tenderness Musculoskeletal: R great toe amputated Skin: Warm, dry. Scattered bruises/wounds to BLE Neuro: Lethargic, awakens easily to name. Oriented to self and year. Disoriented to place. Generalized weakness. Psych: Calm and cooperative Current Medications: atorvastatin 10 mg Tube Nightly ceftaroline (TEFLARO) IVPB 200 mg Intravenous Q8H DAPTOmycin (CUBICIN) IV 10 mg/kg (Adjusted) Intravenous Q48H famotidine 20 mg Tube Nightly furosemide 40 mg Oral BID hydrALAZINE 10 mg Oral Q8H YOLI lispro insulin 0-15 Units Subcutaneous at bedtime insulin lispro 0-30 Units Subcutaneous TID AC levothyroxine 112 mcg Tube Daily lidocaine 2 patch Transdermal Daily melatonin 5 mg Tube Nightly mirtazapine 7.5 mg Oral Nightly QUEtiapine 25 mg Tube Nightly senna-docusate 1 tablet Tube BID sodium chloride (PF) 10 mL Intracatheter Q8H YOLI sodium chloride (PF) 5 mL Intravenous Q8H YOLI Labs, Imaging and Studies reviewed: Results from last 7 days Lab Units 07/05/25 0510 07/04/25 0331 07/03/25 0416 WBC K/mcL 11.94* 17.64* 16.32* HGB g/dL 10.3* 11.2* 10.8* HCT % 33.1* 35.3* 34.8* PLT K/mcL 210 239 151 Results from last 7 days Lab Units 07/05/25 0510 07/04/25 0331 07/03/25 1122 SODIUM mmol/L 144 136 136 POTASSIUM mmol/L 4.1 4.5 4.3 CHLORIDE mmol/L 105 101 102 BICARB mmol/L 27 17* 20* BUN mg/dL 14 16 13 CREATININE mg/dL 1.95* 2.10* 1.29* EGFR mL/min/1.73 m2 26* 24* 43* GLUCOSE mg/dL 108* 112* 92 CALCIUM mg/dL 8.8 8.8 8.0* PHOSPHORUS mg/dL 3.1 3.6 2.8 Results from last 7 days Lab Units 07/05/25 0510 07/02/25 0922 06/28/25 1847 ALT U/L 23 30 45* AST U/L 26 27 34 ALK PHOS U/L 119 149 144 BILIRUBIN TOTAL mg/dL 0.6 0.7 0.5 Palliative Medicine - Progress Note PATIENT: Misael Medina : 1950 ADMISSION DATE: 06/28/2025 5:52 PM, hospital day 7 Misael Medina is a 75 y.o. y/o female with a history of HFrEF, ESRD (since March 2025), T2DM, HTN, HLD, and morbid obesity who initially presented to [facility] on 06/25/25 after suffering a mechanical fall. Her course was complicated by respiratory failure requiring intubation on 06/25/25, MRSA bacteremia requiring HD line removal, and symptomatic bradycardia. She was transferred to [facility] for management of cardiogenic and septic shock. She presented to [facility] on 06/28/2025. Palliative Medicine was consulted on hospital day 4 for assistance with Clarification of Goals of Care (GOC). Assessment / Recommendations Palliative Care Encounter -- patient lacks medical decision making capacity; due to encephalopathy -- Spoke with WLIDEROK Jamaal on phone today, he appears to be trying to process her decline, sharing worries about her motivation and statements of giving up, weighing these statements with his wants; for her to get better. I shared worry about her ability to significantly improve, given multiple medical issues. We inquired about conversations he has had with her in past, he shared she never wanted to be on life support devices. I inquired about her short term intubation here and the fact she has been on dialysis for several months now. We encouraged him to come in to hospital and see how she is doing, he is planning on driving here later today. We encouraged conversations with him and his family about Ed care goals moving forward -- we will follow -- code status not addressed today; remains Full code. Acute Hypoxic Respiratory Failure Acute encephalopathy Severe Sepsis Acute on Chronic HFrEF MRSA Bacteremia ESRD SVC Thrombus Mechanical Fall T2DM HTN Morbid Obesity Acute adjustment disorder with depression vs depression Chayo Arenas Bartolo, DO To reach via cell phone 8AM-5PM, see treatment team or directory Subjective Interval history: Patient seen with palliative SW, patient does not open eyes to verbal stim. Non conversant Spoke with on phone, see conversation above. He was focused a lot on her eating at home prior to arrival. Does not seem to have a good understanding about what and how her multiple issues are impacting her, renal failure, heart failure and debility. Encouraged goals of care with family. We will follow. . ROS: Complete 10 point review of systems unable to be obtained due to patient condition. Family unable to provide further information than what is present in HPI. Functional status (current): 10% - Totally bed bound, unable to do any activity, extensive disease, total care, intake is mouth care only, drowsy or coma, +/- confusion. OT eval - 100% impaired, PT eval 93 % impaired. Objective BP 124/74 (BP Location: Left arm, Patient Position: Lying) Pulse 63 Temp 97.9 F (36.6 C) (Oral) Resp 16 Ht 5' Wt 90 kg (198 lb 6.6 oz) SpO2 95% BMI 38.75 kg/m Gen: frail Neuro: keeps eyes closed, does not interact. No intake/output data recorded. Recent Labs 07/03/25 0416 07/03/25 0545 07/03/25 1122 07/04/25 0331 07/05/25 0510 HGB 10.8* -- -- 11.2* 10.3* HCT 34.8* -- -- 35.3* 33.1* WBC 16.32* -- -- 17.64* 11.94* PLT 151 -- -- 239 210 NA -- < > 136 136 144 K -- < > 4.3 4.5 4.1 CL -- < > 102 101 105 CREATININE -- < > 1.29* 2.10* 1.95* BUN -- < > 13 16 14 ALBUMIN -- < > 2.9* 2.9* 2.8* 2.8* < > = values in this interval not displayed. Billing: I spent 55 minutes on the date of service caring for Misael Medina Chayo Mcfarland DO To reach via cell phone 8AM-5PM, see treatment team or directory INFECTIOUS DISEASES DAILY PROGRESS NOTE Patient Name: Misael Medina MR #: [id number] Date of Service: 07/05/2025 Impression/Recommendations: 1) MRSA bacteremia 2) shock 3) ESRD/CKD recently on HD 4) h/o aortic stenosis 5) SVC thrombus 6) infected dialysis catheter 7) DM2 Patient with persistent MRSA bacteremia 06/25-06/27 per OSH records, HD catheter removed 06/26 with purulence at site. Ongoing instability requiring transfer. - changed to daptomycin plus ceftaroline per pharmacy 07/02. CPK and LFTs reviewed, check at least weekly, CPK 32 07/05. - blood cx 06/27 positive. Blood cx 06/29 positive, blood cx 07/02 2 of 2 MRSA. Blood cx 07/04 NGTD. High grade bacteremia may be difficult to clear with thrombi. - pt had HD catheter removed 06/26, there was still infected-looking fluid coming from site. No obvious abscess on CT chest. Improved. Asked RN to change dressing. - DESTIN 06/29 with SVC thrombus, no obvious other vegetation - right femoral CVC removed 07/02. Acute right internal jugular thrombus on US. May be challenging line placement. - nephrology following, now on iHD. Femoral temp HD catheter in place. Unclear what longer term HD access would be. - monitor for joint/back pain; RN states pt c/o back pain. If able to tolerate, would consider MRI lumbar spine without contrast due to ESRD - abnormal head CT 06/30, consider MRI brain when able. - some purulence of left toe, d/w wound care. XR reviewed, consider podiatry evaluation if worsens. - further recommendations pending clinical course. Prognosis appears poor. Palliative care team involved. Discussed with SHON Galan. Perpetual Assessment: Misael Medina is a 75 y.o. female on hospital day 7 with MRSA bacteremia. Subjective/Objective: Subjective: Patient was seen and examined in follow-up. Remains drowsy and restless. Afebrile. Now on 3 red. Review of Systems: The following system(s) were reviewed and negative. Pertinent positive and negative findings are noted in the HPI. [] Const [] Eyes [] ENT [] Resp [] CV [] GI [] [] Neuro [] Musc [] Skin [] Psych [] Endo [] Allergy [] Heme/Lymph [x] Unable to obtain due to clinical status Physical Examination: BP 132/79 (BP Location: Left arm, Patient Position: Lying) Pulse 77 Temp 97.5 F (36.4 C) (Oral) Resp 16 Ht 5' Wt 90 kg (198 lb 6.6 oz) SpO2 98% BMI 38.75 kg/m General: Ill appearing, restless HEENT: Head: NCAT. Eyes: conjunctiva and sclera clear. OP dry mm Neck: Symmetrical Prior HD catheter site bandaged, clean Respiratory: Diminished, scattered coarse Cardiovascular: Distant S1S2 Abdomen: Soft; obese, nontender, nondistended Extremities: + edema Musculoskeletal: Left toe with small wound Skin: No diffuse rash, pale : Jimenez Lines: Left femoral HD catheter Laboratory and Additional Data Reviewed: Laboratory 07/05/25 8:22 AM Microbiology 07/05/25 8:22 AM Pathology 07/05/25 8:22 AM Radiology 07/05/25 8:22 AM Cardiology 07/05/25 8:22 AM Medications 07/05/25 8:22 AM Transcriptions 07/05/25 8:22 AM Current medications: atorvastatin 10 mg Tube Nightly ceftaroline (TEFLARO) IVPB 200 mg Intravenous Q8H DAPTOmycin (CUBICIN) IV 10 mg/kg (Adjusted) Intravenous Q48H famotidine 20 mg Tube Nightly furosemide 40 mg Oral BID hydrALAZINE 10 mg Oral Q8H YOLI insulin lispro 0-30 Units Subcutaneous Q4H YOLI levothyroxine 112 mcg Tube Daily lidocaine 2 patch Transdermal Daily melatonin 5 mg Tube Nightly mirtazapine 7.5 mg Oral Nightly QUEtiapine 25 mg Tube Nightly senna-docusate 1 tablet Tube BID sodium chloride (PF) 10 mL Intracatheter Q8H YOLI sodium chloride (PF) 10-20 mL Intravenous Once in dialysis sodium chloride (PF) 5 mL Intravenous Q8H YOLI Results from last 7 days Lab Units 07/05/25 0510 07/04/25 0331 07/03/25 0416 WBC K/mcL 11.94* 17.64* 16.32* HGB g/dL 10.3* 11.2* 10.8* HCT % 33.1* 35.3* 34.8* PLT K/mcL 210 239 151 Results from last 7 days Lab Units 07/05/25 0510 07/04/25 0331 07/03/25 1122 SODIUM mmol/L 144 136 136 POTASSIUM mmol/L 4.1 4.5 4.3 CHLORIDE mmol/L 105 101 102 BUN mg/dL 14 16 13 CREATININE mg/dL 1.95* 2.10* 1.29* GLUCOSE mg/dL 108* 112* 92 CALCIUM mg/dL 8.8 8.8 8.0* Comments: WBC 11.94, Cr 1.95 LFTs reviewed Jane micro lab: Blood cx 06/25 MRSA Blood cx 06/26 MRSA Blood cx 06/27 (from central line) MRSA Cath tip 06/26 staph aureus (presumed MRSA) Pleural fluid 06/28 final negative Sputum cx 06/25 normal nadia Urine cx 06/25 yeast (not albicans) and GNB Wound cx 03/19/25 (unknown source) staph epi, MRSA, E faecalis, corynebacterium. Wound cx 03/16/25 (unknown source) E casseliflavus, E avium, GPR Blood cx [facility] 8/15 2 of 2 MRSA, vancomycin DELIA 1.0 Blood cx 07/02 2 of 2 MRSA Blood cx 07/04 NGTD CTPA, A/P report Jane reviewed TTE report reviewed DESTIN 06/29: 1. Left ventricular systolic function is severely reduced, with ejection fraction estimated at 20 +/- 5%. 2. Right ventricular systolic function is moderate to severely reduced. 3. There is no thrombus visualized in the left atrial appendage. 4. There is mild to moderate aortic valve stenosis with valve area of 1.5 cm2. 5. There is moderate mitral valve regurgitation. 6. There is no pericardial effusion. 7. A 0.5 x 2.7 cm, mobile mass appears to be attached to the wall of the SVC approximately 2 cm from the right atrial interface. This finding is consistent with thrombus. Associated infection cannot be excluded. CT CAP 06/30: 1. Appropriately positioned ETT and gastric tube. 2. Cardiomegaly, pulmonary edema and bilateral pleural effusions suggesting decompensated CHF. 3. Heavy three-vessel coronary artery calcifications. 4. Complete atelectasis of the bilateral lower lobes adjacent to the large effusions. 5. Common bile duct measuring 10 mm. This may represent reservoir effect related to patient's age and history of cholecystectomy. 6. Ascites in all 4 quadrants and anasarca in the body wall compatible with volume overload. CT head 06/30: 1. Evaluation is limited due to extensive streaking artifact from dental hardware as well as patient motion. Ill-defined hypodensities throughout the bilateral cerebellar hemispheres are nonspecific and could be artifactual. Consider MRI brain if clinically warranted. 2. No gross intracranial hemorrhage. Assessment Detail: The total time spent for this visit was 35 minutes. Greater than 50% of the time was spent in counseling and coordination of care regarding MRSA bacteremia, SVC thrombus. Toño Stewart MD [facility] - Infectious Diseases Office/answering service [phone] 07/05/2025 8:22 AM NEPHROLOGY PROGRESS NOTE [facility] Patient Name: Misael Medina MR#: [id number] : 1950 Admit Date: [id number] Physicians: Donal Will MD (Family); Saeed Zelaya MD (Referring) Attending: Physicians, [facility]* Reason for Consultation/History of Present Illness Patient is a 75yo female with history of JOSUE on CKD III secondary to ATN requiring HD, HFrEF, HTN, Type II DM, hypothyroidism, and morbid obesity. She initially presented to [facility] on 06/25/25 after a mechanical fall with LOC. Her course was complicated by acute respiratory failure requiring intubation (06/25) and MRSA bacteremia requiring perm cath removal for line holiday, and bradycardia. She was transferred to [facility] 06/28/25 for further management We are asked to manage dialysis. Assessment and Plan: 1) JOSUE on CKD III-->likely now ESRD -Started HD in March 2025 -Bx proven ATN (unclear circumstances) -TTS at [facility] with Dr. Leon -R chest perm cath removed BLIND HOOKER (06/26) d/t MRSA bacteremia -Unclear last HD BLIND HOOKER -EDW 96.3kg -Appreciate ICU team's assistance with L femoral temp line placement 06/30 -Last HD 06/30, poor tolerance d/t hypotension, so started CVVH 07/01 and subsequently discontinued 07/03. -Tolerated HD well 07/04; continue MWF schedule, UF as tolerated. Timing of perm cath reinsertion TBD 2) Acute hypoxemic respiratory failure, improved -Intubated at OSH [facility]IND HOOKER; extubated 03/03 -CXR on admission with small bilateral effusions, mild vascular congestion -She does still make urine, so resumed Lasix BID 07/04; further volume removal with ELEVATOR CONSTRUCTOR -Further care per primary 3) MRSA bacteremia -Blood cx positive at OSH; thought secondary to perm cath (now removed); repeat cx positive x2 06/29 and again 07/02. 07/04 cx NGTD -ID following; now on Daptomycin/Ceftaroline -DESTIN 06/29 with EF 20-25%, mod-severely reduced RV function, mild-mod , mod MR, no pericardial effusion, 0.5 x 2.7 cm mobile mass appears to be attached to the wall of the SVC 2cm from RA interface 4) Shock, resolved -Components of septic and cardiogenic shock in setting of chronic HFrEF -Home antihypertensive medications on hold -On Isopril from OSH, previously on low dose Dobutamine -Abx as above 5) Secondary hyperparathyroidism -Does not appear that she was on a binder BLIND HOOKER -OK for calcium replacement per ERP 6) Anemia of CKD -Hgb at goal of 10-11, SHANTI not indicated -IV iron contraindicated in setting of bacteremia 7) Acute metabolic encephalopathy -In setting of infection/sedatives -CT head limited d/t dental hardware/motion degredation -Bacteremia tx as above -Fluid removal with ELEVATOR CONSTRUCTOR 8) Hyponatremia, resolved -Resumed Lasix 07/04 -Adjusting UF/Na bath with HD 9) SVC thrombus, Acute RIJ thrombus -Noted on DESTIN as above -On heparin gtt 10) Metabolic acidosis, resolved -HD as above 11) HTN -UF with HD as tolerate -Hydralazine resumed 07/03 Following Palliative following for GOC Will discuss with Dr. Vernon Subjective Seen in her room She was sleeping and appeared comfortable, so she was not roused HD planned for tomorrow Objective Vitals: BP 110/60 Pulse 67 Temp 98 F (36.7 C) (Axillary) Resp 16 Ht 5' Wt 93.5 kg (206 lb 2.1 oz) SpO2 99% BMI 40.26 kg/m Intake/Output last 3 shifts: Intake/Output Summary (Last 24 hours) at 07/05/2025 0556 Last data filed at 07/04/2025 2307 Gross per 24 hour Intake 771.67 ml Output 2800 ml Net -2028.33 ml I/O last 3 completed shifts: In: 701.1 [P.O.:50; I.V.:451.1; IV Piggyback:200] Out: 733 [Stool:10] Wt Readings from Last 3 Encounters: 07/04/25 93.5 kg (206 lb 2.1 oz) 05/31/17 122 kg (269 lb) Physical Examination: General: Ill appearing elderly female. Restless Neuro: Sleeping. No myoclonus. Cardiac: Regular rate, +murmur Pulmonary: unlabored on LFNC Skin: No rashes/lesions on exposed skin Extremities: Minimal LE edema Access: L femoral temp line Results/Medications Reviewed: 07/05/25 5:56 AM: Laboratory, Microbiology, Pathology, Radiology, Cardiology, Medications and Transcriptions Scheduled Meds: atorvastatin 10 mg Tube Nightly ceftaroline (TEFLARO) IVPB 200 mg Intravenous Q8H DAPTOmycin (CUBICIN) IV 10 mg/kg (Adjusted) Intravenous Q48H famotidine 20 mg Tube Nightly furosemide 40 mg Oral BID hydrALAZINE 10 mg Oral Q8H [facility] insulin lispro 0-30 Units Subcutaneous Q4H YOLI levothyroxine 112 mcg Tube Daily lidocaine 2 patch Transdermal Daily melatonin 5 mg Tube Nightly mirtazapine 7.5 mg Oral Nightly QUEtiapine 25 mg Tube Nightly senna-docusate 1 tablet Tube BID sodium chloride (PF) 10 mL Intracatheter Q8H YOLI sodium chloride (PF) 10-20 mL Intravenous Once in dialysis sodium chloride (PF) 5 mL Intravenous Q8H YOLI Continuous Infusions: heparin infusion (weight based dosing) 10 Units/kg/hr (07/04/252306) heparin Laboratory: Results from last 7 days Lab Units 07/05/25 0510 07/04/25 0331 07/03/25 0416 WBC K/mcL 11.94* 17.64* 16.32* HGB g/dL 10.3* 11.2* 10.8* HCT % 33.1* 35.3* 34.8* PLT K/mcL 210 239 151 Results from last 7 days Lab Units 07/04/25 0331 07/03/25 1122 07/03/25 0545 SODIUM mmol/L 136 136 134* POTASSIUM mmol/L 4.5 4.3 3.8 CHLORIDE mmol/L 101 102 101 BICARB mmol/L 17* 20* 20* BUN mg/dL 16 13 14 CREATININE mg/dL 2.10* 1.29* 1.25* EGFR mL/min/1.73 m2 24* 43* 45* GLUCOSE mg/dL 112* 92 105* CALCIUM mg/dL 8.8 8.0* 8.7 PHOSPHORUS mg/dL 3.6 2.8 2.6* Adrianne Mi PA-C [facility] Please use Secure Chat to contact (If I am not signed in, please contact the covering Stopper Maker) [phone] (office, after 5pm/weekends) 07/04/252014 Post-Hemodialysis Assessment Rinseback Volume (mL) 300 mL Total Liters Processed (L/min) 58.6 L/min Dialyzer Clearance Moderately streaked Duration of Treatment (minutes) 180 minutes Hemodialysis Fluid Given mL (Intake) 300 mL Hemodialysis Fluid Removed mL (Output) 2800 mL Patient Response to Treatment Patient tolerated treatment well Post-Hemodialysis Comments Net fluid removed 2.5L Hemostatis Achieved Yes Treatment Status Completed Vital Signs Temp 98.5 F (36.9 C) Temp src Axillary Heart Rate 64 Heart Rate Source Monitor Pulse 64 Resp (!) 22 Resp Source Monitor BP (!) 113/51 MAP (mmHg) 66 BP Location Left arm BP Method Automatic Patient Position Lying Hemodialysis Central Line Access Temporary catheter Left Femoral Placement Date/Time: 06/30/25 1500 Inserted by: Jose Tamayo NP Site Prep: Chlorhexidine Site Prep Agent has Completely Dried Before Drape Applied: Yes Local Anesthetic: Injectable Insertion Attempts: 1 Dialysis Catheter Type: Non-tunneled Access... Site Assessment Clean;Dry;Intact Arterial Line Status Deaccessed;Flushed;Clamped;Patent Venous Line Status Deaccessed;Flushed;Clamped;Patent Dressing Intervention Other (comment) (dated 06/30/2025) Dressing Status Clean;Intact Dressing Change Due 07/06/25 Line Intervention Alcohol cap;Flushed Site Condition No complications Dressing CHG patch (chlorhexidine);Occlusive Report given to primary nurse Speech Pathology Daily Note Dysphagia and Communication/Cognition Treatment Recommendations: NDD diet recommendation: Puree/ NDD1, Thin liquids Compensatory Strategies: (cough/clear throat every 2-3 sips) Postures: Sit as upright as possible for all oral intake Food Presentation: Small bites Liquid Presentation: Small sips Medication Presentation: Whole in puree, Crushed in puree Amount of Supervision: Nursing staff supervision Treatment Techniques: Train swallowing strategies Further Recommendations: Oral care TID, Assess for diet tolerance Skilled therapy needs: Skilled Therapy Needs: Are ST Skilled Therapy Services Needed After Discharge: Yes Functional Limitations: dysphagia, anticipate difficulty with household activities Intensity of ST Skilled Therapy: Up to 5 days per week Anticipated Duration of ST Skilled Therapy: Duration 10 - 30 days Speech Plan: Further acute Speech Therapy services indicated: Yes Patient Goal for Treatment: None stated Rehab Potential: Good Factors for returning to Prior Level of Function: Factors for Returning to Prior Level of Function Body Structure and Function: Musculoskeletal impairment, Cardiopulmonary impairment Explain Impairments: HFrEF, ESRD, DMII, HTN, HLD, morbid obesity who initially presented to [facility] on 06/25/25 after suffering a mechanical fall with LOC. Her course was complicated by respiratory failure requiring intubation on 06/25/25, MRSA bacteremia requiring HD line removal, and symptomatic bradycardia. She was transferred to [facility] CICU for management of cardiogenic and septic shock. Activities and Participation: Swallowing limitation Explain Limitations: r/o dysphagia Environmental Factors: Home situation, Family/caregiver support Explain Environmental Factors: [facility], but initially at home Personal Factors: Awareness of own capacity and performance Explain Personal Factors: further assessment HOBBER Caregiver Readiness: HOBBER Caregiver Readiness ST Rationale: Working toward discharge home ST Training Progress: Initiated & ongoing - follow-up required ST Identified Caregiver: (friend) Caregiver Present for ST Session: Yes ST Training Provided For: Cognition - follow-up required Caregiver response to training: Verbalizes understanding HOBBER Assessments HOBBER Assessments Subjective Impression: Alert, Cooperative Respiratory Status: Nasal cannula Dentition: Permanent Self-Feeding Barriers: Impaired for self-feeding Patient Positioning: Upright in bed Volitional Cough: Weak Secretion Management: Xerostomia Volitional Swallow: Present Dysphagia Treatment Skilled Interventions and Response to Interventions: Swallowing Strategies Swallowing Strategies: Patient education/training, Caregiver/family education/training with patient involvement Swallowing Strategies - Patient Education / Training: neutral response to intervention Swallowing Strategies - Caregiver/family education/training with patient involvement: verbalized comprehension of presented information Oral Care Oral Care: Patient education/training, Caregiver/family education/training with patient involvement Oral Care - Patient education/training: neutral response to intervention Oral Care - Caregiver/family education/training with patient involvement: verbalized comprehension of presented information Risk of Aspiration Risk of Aspiration: Patient education/training, Caregiver/family education/training with patient involvement Risk of Aspiration - Patient education/training: neutral response to intervention Risk of Aspiration - Caregiver/family education/training with patient involvement: verbalized comprehension of presented information Therapeutic Trials Therapeutic Trials: Thin liquids Therapeutic Trials - Thin Liquids: adequate oral clearing, no overt s/sx penetration/aspiration Therapeutic Exercises Therapeutic Exercises: (Patient politely declined trials) Communication/Cognitive Treatment Cognitive-Communication: Cognitive-Communication Orientation Level: Oriented x4, With choices, With cues Attention: Exceptions to WFL Sustained Attention: 50-75% (Moderate) Selective Attention: 50-75% (Moderate) Additional Observation: Requires redirection Skilled Intervention/treatment: Mod verbal cues, Patient education/training Patient Response to Intervention: Return demonstration only in presence of cues Safety/Judgement: Exceptions to WFL Insight: Decreased awareness of impairment, Decreased insight into impact of injury/deficits Task Initiation: Delayed initiation Flexibility of Thought: Reduced flexibility Patient O-Log (Orientation Log) Score - Cut off score 25 or better on two separate administrations: Orientation-Log Orientation-log: Yes City: [address]: 3 Name of Hospital: 3 Month: 3 Date: 0 Year: 2 Day of Week: 0 Clock Time: 1 Etiology / Event: 1 Pathology Deficits: 1 Orientation Log Total Score (out of 30): 17 Orientation Log Impression - HOBBER: Will continue the O-Log based on the score today. Patient Cog-Log (Cognitive Log) Score - Cut off score 25 or better: Cognitive-Log Cognitive-log: No Variance - Cognitive Log: Unable to complete test due to endurance limitations Past Medical History: Diagnosis Date Arthritis Cataracts, bilateral Colon polyp 2011 Tubular adenoma Diabetes (HCC) Endometrial cancer (HCC) 08/2014 s/p Hysterectomy and External beam radiation as well as internal radiation, no chemo...[facility]OGIST: [facility] [place] (Dr. Ryan) Hyperlipidemia Hypertension Morbid obesity (HCC) Thyroid disease Past Surgical History: Procedure Laterality Date CHOLECYSTECTOMY 1997 COLONOSCOPY 06/02/2012 tubular adenoma removal...Dr. Funez COLONOSCOPY 06/16/2017 Normal....Dr. Funez EAR PIERCINGS HYSTERECTOMY 08/2014 for Endometrial CA TEETH EXTRACTION For complete objective data, detailed plan of care, and education refer to: Speech Comm/Cog Eval, Speech Bedside Swallow Evaluation, and HOBBER Daily flowsheet, as well as patient Plan of Care and Education documentation. This note stands as the current Discharge Summary upon patient discharge from the hospital or completion of Speech Pathology [facility] Att[facility] Service Note 07/04/2025 3:00 PM Patient: Misael Medina Room: [address] [place] [address] Admitting Physician: Erum Diego MD Date of Admit: 06/28/2025 5:52 PM Brief History: Misael Medina is a 75 y.o. female with a history of HFrEF, ESRD on iHD, DM who presented in transfer from OSH for MRSA bacteremia, shock, and respiratory failure. 24 Hour Events: CRRT stopped. Stable on minimal nasal cannula. Remains uncomfortable and at times confused. Blood cultures remain positive with MRSA. Physical Exam Temp: [97.4 F (36.3 C)-99.2 F (37.3 C)] 98.3 F (36.8 C) Heart Rate: [84-119] 84 Resp: [9-34] 25 BP: (92-133)/(57-99) 114/61 General: Chronically ill HEENT: Normocephalic, without obvious abnormality, atraumatic. Lungs: Unlabored Chest wall: No tenderness or deformity. Heart: Regular Abdomen: Soft, non-tender, non-distended. Extremities: No edema, wound noted to L foot (see media) Vascular: Extremities warm, well perfused. Skin: Skin color, texture, turgor normal. No rashes or lesions Neurologic: Non-focal, confused. I reviewed available and/or new lab and imaging studies as indicated and discussed the patient's course with nursing and network support specialist. This note represents my independent evaluation and assessment of the patient. Assessment & Plan Shock: multifactorial, but primarily distributive/septic shock from MRSA bacteremia, in patient with known heart failure. Currently off vasopressors; planning for iHD. Treating bacteremia as below with concern for infected SVC thrombus. HFrEF: with baseline LVEF of 35%, down to 20% here in setting of stress/shock state. Holding all home GDMT given borderline blood pressures. On low-dose hydralazine. Acute hypoxic respiratory failure: in setting of shock and volume overload in ESRD patient. Currently on nasal cannula; wean as tolerates. MRSA bacteremia: in setting of permanent HD line, now removed, but with concern for infected R/IJ SVC thrombus seen on DESTIN. OSH thoracentesis, urine, and sputum cultures remain NGTD with CTA C/A/P without source as well. Small wound on L foot without radiographic evidence of osteo. Transitioned to dapto/ceftaroline given persistent MRSA bacteremia; repeat cultures 07/02 remain +. DESTIN without evidence of endocarditis (with mobile mass in RA thought to be thrombus). May consider spinal MRI although no complaints historically of back pain. D/w Dr. Stewart today. ESRD: s/p CRRT here, transitioning to iHD. Nephrology following. Continue temp access through groin until bacteremia clears. Encephalopathy: in setting of critical illness, with abnormal head CT at OSH concerning for cerebellar infarcts. Would recommend MRI brain when more stable. Following basic commands but appears delirious. Overall poor long-term prognosis given multiple organ failure/dysfunction and persistent bacteremia. Appreciate palliative involvement for GOC. Per report, her baseline functional status has been very poor since starting dialysis this year. Given her poor access, active bacteremia, heart failure and severe malnutrition (POA) and deconditioning, I believe hospice would be appropriate for her. Stable to leave the ICU today. Misael Medina has an acute or chronic illness, bacteremia, which poses a threat to body function and/or life. To address this, in addition to the documented care above, today I have: [x] Reviewed prior notes [x] Reviewed the following tests: BMP, CBC, blood cultures [] Ordered the following tests [x] Spoken with independent historians to include family members Additionally, today I have performed an independent assessment of tele, which revealed sinus rhythm. With regards to risk, this patient remains at high risk of morbidity and/or decompensation requiring a high level of treatment. Erum Diego MD Cardiovascular Critical Care [facility] Intake/Output Summary (Last 24 hours) at 07/04/2025 1500 Last data filed at 07/04/2025 1421 Gross per 24 hour Intake 451.61 ml Output 10 ml Net 441.61 ml I/O last 3 completed shifts: In: 722.5 [I.V.:462.3; IV Piggyback:260.2] Out: 3523 [Stool:10] Wt Readings from Last 3 Encounters: 07/04/25 93.5 kg (206 lb 2.1 oz) 05/31/17 122 kg (269 lb) Medications Current Medications[1] Additional Data: Vent Settings with 8 Hour Lookback: MAP (mmHg): [72-106] 72 Lab Results Component Value Date LABGRAM Gram Positive Cocci in clusters (A) 07/02/2025 Lab Results Component Value Date LABGRAM Gram Positive Cocci in clusters (A) 07/02/2025 Erum Diego MD Cardiovascular Critical Care [facility] [1] Current Facility-Administered Medications Medication Dose Route Frequency Provider Last Rate Last Admin acetaminophen (TYLENOL) tablet 650 mg 650 mg Oral Q6H PRN Rhys Agarwal PA-C 650 mg at 07/04/25 1349 atorvastatin (LIPITOR) tablet 10 mg 10 mg [facility]ube [facility] 10 mg at 07/03/25 203 bisacodyL (DULCOLAX) suppository 10 mg 10 mg Rectal Daily PRN Mackenzie Biggs CNP ceftaroline (TEFLARO) 200 mg in sodium chloride 0.9 % (NS) 50 mL IVPB 200 mg Intravenous Q8H Keyshawn Burton CNP Stopped at 07/04/25 1224 DAPTOmycin (CUBICIN) IVP syringe 700 mg 10 mg/kg (Adjusted) Intravenous Q48H Erum Diego MD famotidine (PEPCID) tablet 20 mg 20 mg Tube [facility]ly [facility],PharmD 20 mg at 07/03/252032 furosemide (LASIX) tablet 40 mg 40 mg Oral BID Adrianne Mi PA-C 40 mg at 07/04/25 1346 heparin (porcine) 25,000 unit/250 mL(100 unit/mL) in D5W infusion 0-70 Units/kg/hr Intravenous Continuous Mackenzie Biggs CNP 9.5 mL/hr at 07/04/25 1421 10 Units/kg/hr at 07/04/25 1421 heparin bolus from bag 0-5,000 Units 0-5,000 Units Intravenous Continuous PRN Mackenzie Biggs CNP 2,800 Units at 07/04/25 0204 hydrALAZINE (APRESOLINE) tablet 10 mg 10 mg Oral Q8H Mackenzie Tamez CNP 10 mg at 07/04/25 1346 insulin lispro (AdmeLOG,HumaLOG) injection 0-30 Units 0-30 Units Subcutaneous Q4H Mackenzie Tamez CNP 2 Units at 06/29/25 0757 levothyroxine (SYNTHROID, LEVOTHROID) tablet 112 mcg 112 mcg Tube Daily Don Meneses [facility],PharmD 112 mcg at 07/04/25 0616 lidocaine patch 2 patch 2 patch Transdermal Daily Keyshawn Burton CNP 2 patch at 07/04/25 0813 melatonin Tab 5 mg 5 mg Tube Nightly Don Meneses [facility],PharmD 5 mg at 07/03/25 203 mirtazapine (REMERON) tablet 7.5 mg 7.5 mg Oral Nightly Jordana Hernandez CNP naloxone (NARCAN) injection 0.1 mg 0.1 mg Intravenous PRN Vincenzo Dugan PA-C And naloxone (NARCAN) injection 0.4 mg 0.4 mg Intravenous PRN Vincenzo Dugan PA-C QUEtiapine (SEROQUEL) tablet 25 mg 25 mg Tube Nightly Don Meneses [facility],PharmD 25 mg at 07/03/252032 senna-docusate (SENNA-S) 8.6-50 mg per tablet 1 tablet 1 tablet Tube BID Don Meneses [facility],PharmD 1 tablet at 07/02/25 0849 sodium chloride (PF) (NS) 0.9 % contrast line flush 80 mL 80 mL Intravenous Once in imaging Giselle Payne MD sodium chloride (PF) (NS) flush 10 mL 10 mL Intracatheter Q8H Mackenzie Tamez CNP 10 mL at 07/01/25 1408 sodium chloride (PF) (NS) flush 10-20 mL 10-20 mL Intravenous PRN Adrianne Mi PA-C sodium chloride (PF) (NS) flush 5 mL 5 mL Intravenous PRN Mackenzie Biggs CNP And sodium chloride (PF) (NS) flush 5 mL 5 mL Intravenous Q8H YOLI Mackenzie Biggs CNP 5 mL at 07/01/25 1411 And sodium chloride 0.9% (NS) 0-150 mL/hr Intravenous PRN Mackenzie Biggs CNP 0 mL/hr at 06/30/25 1507 0 mL/hr at 06/30/25 1507 sodium chloride (PF) (NS) flush 5 mL 5 mL Intravenous PRN Sharifa Tamayo CNP And sodium chloride 0.9% (NS) 0-150 mL/hr Intravenous PRN Sharifa Tamayo CNP 15 mL/hr at 07/02/25 1213 15 mL/hr at 07/02/25 1213 sodium chloride 0.9% (NS) bolus 200 mL 200 mL Intravenous PRN Adrianne Mi PA-C sodium chloride 0.9% (NS) 1,000 mL CRRT PRN Adrianne Mi PA-C 1,000 mL at 07/03/25 1109 Today I reviewed Misael Medina, 75 y.o. year old Female from [place] [address] with identified taoism preference of No rastafarian on file. Narrative Attempted to visit with patient/Ed, but she was sleeping soundly at time of visit. No visitors present. Conferred with staff regarding patient condition and plan of care. Palliative care will continue to follow with you. Please call with any needs. Plan & Recommendations Pop Singer will remain available to provide spiritual support as needed. Consult Pop Singer if patient or family requests. Rev. Adi Wylie DMin, [facility] Advanced Pop Singer Practitioner [facility] Palliative Medicine Palliative Medicine Social Work - Follow Up Visit LI Neumann, CHUCKY [facility] Palliative Care at [facility] Assessment / Recommendations Visit Type: General Support Interventions & Topics Discussed: Reflective listening Identified supports Identified Clinical Considerations from Assessment: Comorbidities/other stressors Details from Interaction: Palliative medicine team continues to follow for assistance with goals of discussions. This palliative social science teacher and Dr. Chayo Mcfarland met with Ed/pt at bedside during daily rounding. She is seen lying in bed, no family present at bedside. Provided supportive presence. Ed appears short of breath, though denies symptoms at present. Chart reviewed; noted plan for HD later today. Implications for Medical Care/Decision Making: If surrogate decision making is needed, Legal next of kin is Jonny Medina/spouse ([phone]). Follow-Up: Ongoing psychosocial support related to current clinical situation and complex care decisions. Encourage medical teams to reach out to Jonny with updates. Palliative medicine team will continue to follow. CHUCKY Neumann [facility] Palliative Medicine Office # [phone] Nutrition Care Follow up Monitoring and Evaluation: Pt did not adv to EN goals as pt was extubated from vent 07/02 with OGT access for EN removed- NPO until s/p MBS this am/HOBBER with recs for NDD1 diet with thin liquids as able per HOBBER messaging this am- await input for diet adv/CCM SAYRA Nutrition Diagnosis: UPDATED: Inadequate protein/energy intake/Swallow difficulty r/t inability to take PO In setting of mechanical ventilation (recent extubation 07/02) AEB NPO status still with recs for texture-modified oral diet/HOBBER/MBS results of today per mild oropharyngeal dysphagia/+penetration/no aspiration) with current intake (NPO still) inadequate to meet estimated protein/energy intake- Not Resolved/Active Nutrition Intervention: Initiate meals and snacks medical food supplement - discussed diet adv with SAYRA- ok'd- will add NDD1/thins Nutrition Prescription: Diet:NPO Oral nutrition supplement: Boost Glucose Control (no flavor preference) with each meal (TID) Nutrition Goals: PO intake 50% or greater at most meals and/or supplements (if applicable) Start Date:07/04/2025 Expected End Date:07/08/2025 Nutrition Education: pt asleep Assessment: Pertinent clinical information: extubated 07/02- off EN/no enteral access; per BSE/HOBBER 07/03: NPO- for MBS today: NDD1/thins/HOBBER messaging; Hep gtt only; CRRT but plan iHD today and MWF schedule/Nephro Height: 5' Current weight: 93.5 kg (206 lb 2.1 oz) BMI Body mass index is 40.26 kg/m . Wt Readings from Last 5 Encounters: 07/04/25 93.5 kg (206 lb 2.1 oz) 05/31/17 122 kg (269 lb) Wt hx: -8.4 kg per diuresis/Lasix/CRRT txs last 24-48 hrs; -5.4 L Net/adm Diet prior to assessment:: Diet NPO Recent intake: has rec'd only ~278 ml EN intake on ave over last 2 days Current intake does not meet estimated needs. Barriers to adequate nutrition intake: recent extubation/vent/MBS this am for texture-modified diet Patient/family comments:deferred, pt working with other staff Difficulty Chewing or Swallowing: Speech Therapy consulted or following. Teeth: Missing teeth Skin Integrity: surgical wound(s) at R anterior cervical inc wd and L 4th dorsal toe wd, +ecchymosis/redness/excoriation/e pidermis thin with loss of subcutaneous tissue GI Function (per nursing flowsheet): Abdomen Inspection: Soft, Rounded Bowel Sounds (All Quadrants): Active Last BM Date: 07/03/25 Passing Flatus: Yes GI Symptoms: Diarrhea Fluid Status: non-pitting edema General/BLE edema Nutrition Focus Physical Exam Type: Deferred/pt @ MBS this am/RD rds Labs: Recent Labs 07/03/25 0545 07/03/25 1122 07/04/25 0331 NA 134* 136 136 K 3.8 4.3 4.5 BICARB 20* 20* 17* CL 101 102 101 GLUCOSE 105* 92 112* BUN 14 13 16 CREATININE 1.25* 1.29* 2.10* CALCIUM 8.7 8.0* 8.8 MG 2.4 2.3 2.3 PHOS 2.6* 2.8 3.6 CHRISTOPHER 4.7 4.6 4.7 Lab Results Component Value Date ALBUMIN 2.9 (L) 07/04/2025 No results found for: B12, FOLATE, VITD, IRON, FERRITIN, ZINC Recent Labs 07/02/25 1532 07/02/25 2044 07/02/25 2352 07/03/25 0425 07/03/25 0839 07/03/25 1603 07/03/25 1936 07/03/25 2306 07/04/25 0313 07/04/25 0750 POCGLU 110* 111* 107* 96 88 84 85 96 104* 138* Lab Results Component Value Date HGBA1C 6.6 (H) 06/28/2025 Scheduled Meds: atorvastatin 10 mg Tube Nightly ceftaroline (TEFLARO) IVPB 200 mg Intravenous Q8H [START ON 07/05/2025] DAPTOmycin (CUBICIN) IV 10 mg/kg (Adjusted) Intravenous Q48H famotidine 20 mg Tube Nightly furosemide 40 mg Oral BID hydrALAZINE 10 mg Oral Q8H YOLI insulin lispro 0-30 Units Subcutaneous Q4H YOLI levothyroxine 112 mcg Tube Daily lidocaine 2 patch Transdermal Daily melatonin 5 mg Tube Nightly mirtazapine 7.5 mg Oral Nightly QUEtiapine 25 mg Tube Nightly senna-docusate 1 tablet Tube BID sodium chloride (PF) 10 mL Intracatheter Q8H YOLI sodium chloride (PF) 5 mL Intravenous Q8H YOLI Continuous Infusions: heparin infusion (weight based dosing) 10 Units/kg/hr (07/04/25 1118) heparin UPDATED 07/04/2025: Estimated Energy Needs Total Energy Estimated Needs: 7980-9445 kcals/day Method for Estimating Needs: 22-25 kcals/kg IBW/day (IBW 57.8 kg for BMI 24.9kgm2) Total Protein Estimated Needs: 69-116 gm/day Method for Estimating Needs: 1.2-2.0 gm/kg IBW/day Fluid Needs Total Fluid Estimated Needs: per CCM/Nephro Margie Paredes RD, LD INFECTIOUS DISEASES DAILY PROGRESS NOTE Patient Name: Misael Medina MR #: [id number] Date of Service: 07/04/2025 Impression/Recommendations: 1) MRSA bacteremia 2) shock 3) ESRD/CKD recently on HD 4) h/o aortic stenosis 5) SVC thrombus 6) infected dialysis catheter 7) DM2 Patient with persistent MRSA bacteremia 06/25-06/27 per OSH records, HD catheter removed 06/26 with purulence at site. Ongoing instability requiring transfer. - changed to daptomycin plus ceftaroline per pharmacy 07/02. CPK and LFTs reviewed, check at least weekly, will check CPK 07/05 on higher dose. - blood cx 06/27 positive. Blood cx 06/29 positive, blood cx 07/02 2 of 2 MRSA. Blood cx 07/04 pending. High grade bacteremia may be difficult to clear with thrombi. - pt had HD catheter removed 06/26, there was still infected-looking fluid coming from site. No obvious abscess on CT chest. Improved. - DESTIN 06/29 with SVC thrombus, no obvious other vegetation - right femoral CVC removed 07/02. Acute right internal jugular thrombus on US. May be challenging line placement. - nephrology following, now on iHD. Femoral temp HD catheter in place - monitor for joint/back pain; RN states pt c/o back pain. Patient would not tolerate MRI currently but may need to consider. - abnormal head CT 06/30, consider MRI brain when able. - some purulence of left toe, d/w wound care. XR reviewed, consider podiatry evaluation if worsens. - further recommendations pending clinical course. Prognosis appears poor. Palliative care team involved. Discussed with [facility]. Perpetual Assessment: Misael Medina is a 75 y.o. female on hospital day 6 with MRSA bacteremia. Subjective/Objective: Subjective: Patient was seen and examined in follow-up. Remains drowsy and restless. Some back pain reported to PT/OT who were just with her. Review of Systems: The following system(s) were reviewed and negative. Pertinent positive and negative findings are noted in the HPI. [] Const [] Eyes [] ENT [] Resp [] CV [] GI [] [] Neuro [] Musc [] Skin [] Psych [] Endo [] Allergy [] Heme/Lymph [x] Unable to obtain due to clinical status Physical Examination: BP 128/84 Pulse 91 Temp 98.3 F (36.8 C) (Oral) Resp (!) 25 Ht 5' Wt 93.5 kg (206 lb 2.1 oz) SpO2 92% BMI 40.26 kg/m General: Ill appearing, restless HEENT: Head: NCAT. Eyes: conjunctiva and sclera clear. OP dry mm Neck: Symmetrical Prior HD catheter site remains irritated, no drainage Respiratory: Diminished, scattered coarse Cardiovascular: Distant S1S2 Abdomen: Soft; obese, nontender, nondistended Extremities: + edema Musculoskeletal: Left toe with small wound Skin: No diffuse rash, pale : Jimenez Lines: Femoral HD catheter Laboratory and Additional Data Reviewed: Laboratory 07/04/25 8:51 AM Microbiology 07/04/25 8:51 AM Pathology 07/04/25 8:51 AM Radiology 07/04/25 8:51 AM Cardiology 07/04/25 8:51 AM Medications 07/04/25 8:51 AM Transcriptions 07/04/25 8:51 AM Current medications: atorvastatin 10 mg Tube Nightly ceftaroline (TEFLARO) IVPB 200 mg Intravenous Q8H [START ON 07/05/2025] DAPTOmycin (CUBICIN) IV 10 mg/kg (Adjusted) Intravenous Q48H famotidine 20 mg Tube Nightly hydrALAZINE 10 mg Oral Q8H YOLI insulin lispro 0-30 Units Subcutaneous Q4H YOLI levothyroxine 112 mcg Tube Daily lidocaine 2 patch Transdermal Daily melatonin 5 mg Tube Nightly QUEtiapine 25 mg Tube Nightly senna-docusate 1 tablet Tube BID sodium chloride (PF) 10 mL Intracatheter Q8H YOLI sodium chloride (PF) 5 mL Intravenous Q8H YOLI Results from last 7 days Lab Units 07/04/25 0331 07/03/25 0416 07/02/25 0446 WBC K/mcL 17.64* 16.32* 14.39* HGB g/dL 11.2* 10.8* 10.8* HCT % 35.3* 34.8* 34.2* PLT K/mcL 239 151 151 Results from last 7 days Lab Units 07/04/25 0331 07/03/25 1122 07/03/25 0545 SODIUM mmol/L 136 136 134* POTASSIUM mmol/L 4.5 4.3 3.8 CHLORIDE mmol/L 101 102 101 BUN mg/dL 16 13 14 CREATININE mg/dL 2.10* 1.29* 1.25* GLUCOSE mg/dL 112* 92 105* CALCIUM mg/dL 8.8 8.0* 8.7 Comments: WBC 17.64, Cr 2.1 LFTs reviewed Jane micro lab: Blood cx 06/25 MRSA Blood cx 06/26 MRSA Blood cx 06/27 (from central line) MRSA Cath tip 06/26 staph aureus (presumed MRSA) Pleural fluid 06/28 final negative Sputum cx 06/25 normal nadia Urine cx 06/25 yeast (not albicans) and GNB Wound cx 03/19/25 (unknown source) staph epi, MRSA, E faecalis, corynebacterium. Wound cx 03/16/25 (unknown source) E casseliflavus, E avium, GPR Blood cx [facility] 06/29 2 of 2 MRSA, vancomycin DELIA 1.0 Blood cx 07/02 2 of 2 MRSA Blood cx 07/04 pending CTPA, A/P report Jane reviewed TTE report reviewed DESTIN 06/29: 1. Left ventricular systolic function is severely reduced, with ejection fraction estimated at 20 +/- 5%. 2. Right ventricular systolic function is moderate to severely reduced. 3. There is no thrombus visualized in the left atrial appendage. 4. There is mild to moderate aortic valve stenosis with valve area of 1.5 cm2. 5. There is moderate mitral valve regurgitation. 6. There is no pericardial effusion. 7. A 0.5 x 2.7 cm, mobile mass appears to be attached to the wall of the SVC approximately 2 cm from the right atrial interface. This finding is consistent with thrombus. Associated infection cannot be excluded. CT CAP 06/30: 1. Appropriately positioned ETT and gastric tube. 2. Cardiomegaly, pulmonary edema and bilateral pleural effusions suggesting decompensated CHF. 3. Heavy three-vessel coronary artery calcifications. 4. Complete atelectasis of the bilateral lower lobes adjacent to the large effusions. 5. Common bile duct measuring 10 mm. This may represent reservoir effect related to patient's age and history of cholecystectomy. 6. Ascites in all 4 quadrants and anasarca in the body wall compatible with volume overload. CT head 06/30: 1. Evaluation is limited due to extensive streaking artifact from dental hardware as well as patient motion. Ill-defined hypodensities throughout the bilateral cerebellar hemispheres are nonspecific and could be artifactual. Consider MRI brain if clinically warranted. 2. No gross intracranial hemorrhage. Assessment Detail: The total time spent for this visit was 35 minutes. Greater than 50% of the time was spent in counseling and coordination of care regarding MRSA bacteremia, SVC thrombus. Toño Stewart MD [facility] - Infectious Diseases Office/answering service [phone] 07/04/2025 8:51 AM Progress Note Patient Name:Misael Medina :1950 Perpetual Assessment: Misael Medina is a 75 y.o. female with a past medical history of HFrEF, ESRD, DMII, HTN, HLD, morbid obesity who initially presented to [facility] on 06/25/25 after suffering a mechanical fall with LOC. Her course was complicated by respiratory failure requiring intubation on 06/25/25, MRSA bacteremia requiring HD line removal, and symptomatic bradycardia. She was transferred to [facility] CICU for management of cardiogenic and septic shock. Resume iHD 06/30. Transition to CVVH 07/01 for ongoing fluid removal. Extubated 07/02. Assessment and Plan: Acute hypoxic respiratory failure Multifactorial, secondary to shock, effusion, edema - CXR at [facility] with pulmonary edema, no focal infiltrates, R pleural effusion - Mixed acidosis on admission to [facility] - CXR (06/29) pulmonary edema with bilateral effusions - Extubated 07/03 to LFNC - Titrate for goal for SpO2 >88% Cardiogenic Shock Acute on chronic HFrEF Unclear etiology - Previous EF reportedly 35% in Nov 2024, now down to 20% per TTE 06/25 with moderately dilated RV - DESTIN (06/29) EF 25%, moderate and MR, 0.2 x 2.7cm mobile mass attached to the SVC wall (approx 2cm from RA) - Home medications: carvedilol, imdur, hydralazine, isordil, furosemide dapagliflozin- holding all in acute setting - Dobutamine off 07/01; vasopressors off 07/02 - Continue low dose hydral Sepsis, Resolved Shock MRSA Bacteremia 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) Blood cultures positive at [facility] 06/25, secondary to recently placed permacath - since removed - Previously required vasopressor support and had elevated lactate at [facility] - Lactate normal on admission to [facility] - Permacath removal 06/26 per [facility] - Thoracentesis at [facility] NGTD, Sputum/Urine culture from [facility] NGTD - Blood cultures sent 07/02 with 2/2 +MRSA. Repeat today per ID - CTA CAP (06/30) no nidus for infection; nodular appearance to liver, concerning for cirrhosis. Ascites and anasarca. BLL atelectasis and bilateral pleural effusions. - Bilateral upper and lower extremity 07/02 dopplers only notable for previously known RIJ thrombus - Left toe with small wound, xray unremarkable - Vanco stopped 07/02 - ID consult; continue Ceftaroline and Daptomycin per ID - DESTIN as above Sinus Bradycardia - Resolved Reports of Afib at [facility] Unclear etiology - Hold home carvedilol - Started on isuprel at [facility], since discontinued - Changed to dobutamine on arrival to [facility] - Stable blood pressure with HR 40-50's SVC thrombus Suspect vegetation in the setting of MRSA bacteremia - Reports of SVC thrombus noted on DESTIN, awaiting imaging/reads - Continue heparin gtt - DESTIN (06/29) EF 25%, moderate and MR, 0.2 x 2.7cm mobile mass attached to the SVC wall (approx 2cm from RA) - Continue Ceftaroline and Daptomycin Right Pleural effusion Suspect secondary to acute HFrEF, volume overload - S/p thoracentesis with 850ml fluid removed - Appears exudative - Follow fluid studies from [facility] Syncopal Event Mechanical Fall with +LOC Reportedly has fallen three different times in the past week - CT (06/30) hypodensities bilateral cerebellar hemispheres - Cervical spine at [facility] nonacute - Can consider MRI brain when patient is more hemodynamically stable - No abnormal bruising or deformities noted - Supportive care Acute Encephalopathy Secondary to shock state, sedatives, infection, recent fall - CT (06/30) hypodensities bilateral cerebellar hemispheres - Following commands throughout on exam - Treatment of infection as above ESRD Historical since March 2025, with dialysis T/R/Sat - Right permacath removed 06/26 per [facility] - Creatine 6.51 on admission, electrolytes stable - Nephrology consult for iHD; non emergent but will need in coming days - HD line placed to left femoral vein in the setting of SVC thrombus/mobile mass - Tolerated iHD 06/29, however transitioned to CRRT through 07/03, plan to resume iHD Aortic Valve Stenosis Per history - Monitor volume status closely - Avoid over-diuresis/aggressive volume removal with HD Unplanned Weight Loss Failure to Thrive 70lb weight loss since 10/2024 - Per family, does not eat very much at home but does drink water throughout the day - Palliative consult Chronic anemia Suspect secondary to ESRD, baseline 10-11 per reports - Presented with Hgb 10.5 - No outward signs of bleeding - Trend CBC daily, expand w/u pending trajectory Hypothyroidism Per history - TSH 1.73 - Continue levothyroxine DMII Historical - Home meds: farxiga - Hgb A1c 6.6 on admission - SSI +/- basal for BG goal <180 HTN Historical - Home meds: carvedilol, imdur - Afterload plan outlined above HLD Historical - Home meds: ASA, atorvastatin - Continue home ASA and statin Morbid obesity Historical - Lifestyle modifications Incidental Findings: NA Critical Care Checklist : updated 07/04/25 SBT: Not Intubated SAT: Not Sedated Delirium: CAM-ICU positive (delirium) HOBBER consulted yes/no: yes Restraints: N/A Bowel Regimen: Senna-Docusate and Last BM 07/02 Prophylaxis: DVT: Heparin infusion, (A Fib) Lines/Tubes: Left femoral HD line (placed 06/30) No tubes Antibiotics: Ceftaroline, Daptomycin, Indication (MRSA bacteremia), and End Date (TBD) Mobility goal: PT/OT consult Nutrition: Dietitian consulted Blood Glucose: Sliding scale insulin Sleep Hygiene: PRN Melatonin Code Status: Full Code Family Update: and daughter updated bedside. Plan discussed with Subjective and Review of Systems: Misael seen and examined this morning in follow up. Ed is delirious this morning and did not sleep well overnight. HOBBER ok for pureed food and thin liquids however patient with no appetite. , Primitivo, ok for NGT and tube feeding for supplementation if offered. [x] All other systems were reviewed and negative except for those as specified in History of Present illness. [] Unable to obtain history or ROS secondary to clinical circumstances Physical Exam: PHYSICAL EXAM: General appearance: Overweight. Chronically ill-appearing. Head: Normocephalic, atraumatic. Eyes: PERRL. EOMI. Neck: Trachea midline. Supple. Neurologic: AO to self. Follows commands. Globally weak. No focal neurologic deficits. Pulmonary: Lungs CTAB diminished bases, w/o rhonchi, wheezes or rales. Stable on 2L LFNC Chest wall: No obvious deformity/crepitus. Equal chest excursion. Cardiac: RRR. normal sinus rhythm Normal S1, S2. No M/G/R. Abdomen: Soft, NTTP. No guarding or peritoneal signs. GI: Tolerating pur ed food, thin liquids(+) Flatus, Last BM: 07/03 : Voiding independently. No hematuria. Extremities: NVI x 4 extremities without gross deformities. Radial/DP/PT pulses 2+ bilaterally. ROM appropriate for age and injuries. Skin: Skin warm and dry. Normal for ethnicity. No rashes or lesions. Wounds: Left fourth toe wound. NEPHROLOGY PROGRESS NOTE [facility] Patient Name: Misael Medina MR#: [id number] : 1950 Admit Date: [id number] Physicians: Donal Will MD (Family); Saeed Zelaya MD (Referring) Attending: Erum Diego MD Reason for Consultation/History of Present Illness Patient is a 75yo female with history of JOSUE on CKD III secondary to ATN requiring HD, HFrEF, HTN, Type II DM, hypothyroidism, and morbid obesity. She initially presented to [facility] on 06/25/25 after a mechanical fall with LOC. Her course was complicated by acute respiratory failure requiring intubation (06/25) and MRSA bacteremia requiring perm cath removal for line holiday, and bradycardia. She was transferred to [facility] 06/28/25 for further management We are asked to manage dialysis. Assessment and Plan: 1) JOSUE on CKD III-->likely now ESRD -Started HD in March 2025 -Bx proven ATN (unclear circumstances) -TTS at [facility] with Dr. Leon -Reyna chest perm cath removed [facility] (06/26) d/t MRSA bacteremia -Unclear last HD [facility] -EDW 96.3kg -Appreciate ICU team's assistance with L femoral temp line placement 06/30 -Last HD 06/30, poor tolerance d/t hypotension, so started CVVH 07/01 and subsequently discontinued 07/03. -Plan HD later today, UF as tolerated; will continue MWF schedule for now; after today, next HD 07/06 2) Acute hypoxemic respiratory failure, improved -Intubated at OSH [facility]; extubated 03/03 -CXR on admission with small bilateral effusions, mild vascular congestion -She does still make urine, so resumed Lasix BID 07/04; further volume removal with ELEVATOR CONSTRUCTOR -Further care per primary 3) MRSA bacteremia -Blood cx positive at OSH; thought secondary to perm cath (now removed); repeat cx positive x2 06/29 and again 07/02 -ID following; now on Daptomycin -DESTIN 06/29 with EF 20-25%, mod-severely reduced RV function, mild-mod , mod MR, no pericardial effusion, 0.5 x 2.7 cm mobile mass appears to be attached to the wall of the SVC 2cm from RA interface 4) Shock, resolved -Components of septic and cardiogenic shock in setting of chronic HFrEF -Home antihypertensive medications on hold -On Isopril from OSH, previously on low dose Dobutamine -Abx as above 5) Secondary hyperparathyroidism -Does not appear that she was on a binder BLIND HOOKER -OK for calcium replacement per ERP 6) Anemia of CKD -Hgb at goal of 10-11, SHANTI not indicated -IV iron contraindicated in setting of bacteremia 7) Acute metabolic encephalopathy -In setting of infection/sedatives -CT head limited d/t dental hardware/motion degredation -Bacteremia tx as above -Fluid removal with ELEVATOR CONSTRUCTOR 8) Hyponatremia, resolved -Resumed Lasix 07/04 -Adjusting UF/Na bath with HD 9) SVC thrombus, Acute RIJ thrombus -Noted on DESTIN as above -On heparin gtt 10) Metabolic acidosis -Should improve with HD 11) HTN -UF with HD as tolerate -Hydralazine resumed 07/03 Following Palliative following for GOC Discussed with ICU BACKUP OPERATOR Will discuss with Dr. Vernon Subjective Seen in her room She was awake, restless; minimally conversant-appeared confused HD planned for later today Objective Vitals: BP (!) 130/94 Pulse (!) 104 Temp 99 F (37.2 C) (Oral) Resp 15 Ht 5' Wt 93.5 kg (206 lb 2.1 oz) SpO2 91% BMI 40.26 kg/m Intake/Output last 3 shifts: Intake/Output Summary (Last 24 hours) at 07/04/2025 0603 Last data filed at 07/04/2025 0133 Gross per 24 hour Intake 332.9 ml Output 980 ml Net -647.1 ml I/O last 3 completed shifts: In: 1299.3 [I.V.:557; NG/GT:115; IV Piggyback:450.3] Out: 5898 [Stool:10] Wt Readings from Last 3 Encounters: 07/04/25 93.5 kg (206 lb 2.1 oz) 05/31/17 122 kg (269 lb) Physical Examination: General: Ill appearing elderly female. Restless Neuro: Awake, confused. No myoclonus. Cardiac: Regular rate, +murmur Pulmonary: Diminished bilaterally; unlabored on LFNC Abdominal: Obese, soft, non-tender, non-distended Skin: Warm/dry, no rashes/lesions Extremities: Minimal LE edema Access: L femoral temp line Results/Medications Reviewed: 07/04/25 6:03 AM: Laboratory, Microbiology, Pathology, Radiology, Cardiology, Medications and Transcriptions Scheduled Meds: atorvastatin 10 mg Tube Nightly ceftaroline (TEFLARO) IVPB 200 mg Intravenous Q8H [START ON 07/05/2025] DAPTOmycin (CUBICIN) IV 10 mg/kg (Adjusted) Intravenous Q48H famotidine 20 mg Tube Nightly hydrALAZINE 10 mg Oral Q8H [facility] insulin lispro 0-30 Units Subcutaneous Q4H [facility] levothyroxine 112 mcg Tube Daily lidocaine 2 patch Transdermal Daily melatonin 5 mg Tube Nightly QUEtiapine 25 mg Tube Nightly senna-docusate 1 tablet Tube BID sodium chloride (PF) 10 mL Intracatheter Q8H YOLI sodium chloride (PF) 5 mL Intravenous Q8H YOLI Continuous Infusions: heparin infusion (weight based dosing) 14 Units/kg/hr (07/04/25 0203) heparin Laboratory: Results from last 7 days Lab Units 07/04/25 0331 07/03/25 0416 07/02/25 0446 WBC K/mcL 17.64* 16.32* 14.39* HGB g/dL 11.2* 10.8* 10.8* HCT % 35.3* 34.8* 34.2* PLT K/mcL 239 151 151 Results from last 7 days Lab Units 07/04/25 0331 07/03/25 1122 07/03/25 0545 SODIUM mmol/L 136 136 134* POTASSIUM mmol/L 4.5 4.3 3.8 CHLORIDE mmol/L 101 102 101 BICARB mmol/L 17* 20* 20* BUN mg/dL 16 13 14 CREATININE mg/dL 2.10* 1.29* 1.25* EGFR mL/min/1.73 m2 24* 43* 45* GLUCOSE mg/dL 112* 92 105* CALCIUM mg/dL 8.8 8.0* 8.7 PHOSPHORUS mg/dL 3.6 2.8 2.6* Adrianne Mi PA-C [facility] Please use Secure Chat to contact (If I am not signed in, please contact the covering Stopper Maker) [phone] (office, after 5pm/weekends) [facility] CICU Attending Service Note 07/03/2025 2:23 PM Patient: Misael Medina Room: [facility] Admitting Physician: Erum Diego MD Date of Admit: 06/28/2025 5:52 PM Brief History: Misael Medina is a 75 y.o. female with a history of HFrEF, ESRD on iHD, DM who presented in transfer from [facility] for MRSA bacteremia, shock, and respiratory failure. 24 Hour Events: Extubated yesterday to nasal cannula. Remains delirious and uncomfortable. Changed abx to ceftaroline/dapto. Tolerated 5L fluid removal with CRRT without hypotension. Physical Exam Temp: [96.4 F (35.8 C)-98.4 F (36.9 C)] 96.4 F (35.8 C) Heart Rate: [48-121] 88 Resp: [12-31] 24 BP: (76-133)/(47-109) 133/109 General: Chronically ill HEENT: Normocephalic, without obvious abnormality, atraumatic. Lungs: Unlabored Chest wall: No tenderness or deformity. Heart: Tachycardic Abdomen: Soft, non-tender, non-distended. Extremities: No edema, wound noted to L foot (see media) Vascular: Extremities warm, well perfused. Skin: Skin color, texture, turgor normal. No rashes or lesions Neurologic: Non-focal, confused. I reviewed available and/or new lab and imaging studies as indicated and discussed the patient's course with nursing and network support specialist. This note represents my independent evaluation and assessment of the patient. Assessment & Plan Shock: multifactorial, but primarily distributive/septic shock from MRSA bacteremia, in patient with known heart failure. Currently off vasopressors and tolerating fluid removal with CVVH. Treating bacteremia as below with concern for infected SVC thrombus. HFrEF: with baseline LVEF of 35%, down to 20% here in setting of stress/shock state. Holding all home GDMT given borderline blood pressures. Will slowly add in afterload reduction today with low-dose hydralazine. Acute hypoxic respiratory failure: in setting of shock and volume overload in ESRD patient. Currently on nasal cannula; wean as tolerates. MRSA bacteremia: in setting of permanent HD line, now removed, but with concern for infected R/IJ SVC thrombus seen on DESTIN.[facility] thoracentesis, urine, and sputum cultures remain NGTD with CTA C/A/P without source as well. Small wound on L foot without radiographic evidence of osteo. Transitioned to dapto/ceftaroline given persistent MRSA bacteremia; repeat cultures 07/02 NGTD so far. DESTIN without evidence of endocarditis (with mobile mass in RA thought to be thrombus). May consider spinal MRI although no complaints historically of back pain. ESRD: historical, now on CRRT for volume removal. Nephrology following. Plan to stop CRRT today and transition to iHD when ok with neprho. Continue temp access through groin until bacteremia clears. Encephalopathy: in setting of critical illness, with abnormal head CT at OSH concerning for cerebellar infarcts. Would recommend MRI brain when more stable. Following basic commands but appears delirious. Overall poor long-term prognosis given multiple organ failure/dysfunction and persistent bacteremia. Appreciate palliative involvement for GOC. hopeful to visit today. Per report, her baseline functional status has been very poor since starting dialysis this year. Given her poor access, active bacteremia, heart failure and severe malnutrition (POA) and deconditioning, I believe hospice would be appropriate for her. Critical Care Time: 31 minutes of direct delivery of critical care services (excluding procedures) were provided today due to the high probability of clinically significant life threatening deterioration due to renal failure requiring CRRT that required my urgent intervention. It involved decision making of high complexity to assess, manipulate and support vital organ systems including but not limited to the central nervous system, circulatory failure, shock, renal, hepatic, metabolic or respiratory failure. I personally reviewed the clinical course, hemodynamics, respiratory parameters, laboratory data and radiological studies. A physical exam was completed by myself and documented above. I managed/supervised life or organ supporting interventions that required frequent physician assessment. Time I spent with family or surrogate(s) is included only if the patient was incapable of providing the necessary information or participating in medical decision making. Intake/Output Summary (Last 24 hours) at 07/03/2025 1423 Last data filed at 07/03/2025 1100 Gross per 24 hour Intake 714.51 ml Output 4536 ml Net -3821.49 ml I/O last 3 completed shifts: In: 2275 [I.V.:612.7; NG/GT:275; IV Piggyback:900.3] Out: 6995 Wt Readings from Last 3 Encounters: 07/03/25 101.9 kg (224 lb 10.4 oz) 05/31/17 122 kg (269 lb) Medications Current Medications[1] Additional Data: Vent Settings with 8 Hour Lookback: MAP (mmHg): [52-118] 118 Lab Results Component Value Date LABGRAM Gram Positive Cocci in clusters (A) 07/02/2025 Lab Results Component Value Date LABGRAM Gram Positive Cocci in clusters (A) 07/02/2025 Erum Diego MD Cardiovascular Critical Care [facility] [1] Current Facility-Administered Medications Medication Dose Route Frequency Provider Last Rate Last Admin acetaminophen (TYLENOL) tablet 650 mg 650 mg Oral Q6H PRN Rhys Agarwal PA-C 650 mg at 07/03/25 1324 atorvastatin (LIPITOR) tablet 10 mg 10 mg Tube Nightly Don Meneses RPh,PharmD 10 mg at 07/02/252046 bisacodyL (DULCOLAX) suppository 10 mg 10 mg Rectal Daily PRN Mackenzie Biggs CNP ceftaroline (TEFLARO) 200 mg in sodium chloride 0.9 % (NS) 50 mL IVPB 200 mg Intravenous Q8H Keyshawn Burton CNP [START ON 07/05/2025] DAPTOmycin (CUBICIN) IVP syringe 700 mg 10 mg/kg (Adjusted) Intravenous Q48H Keyshawn Burton CNP famotidine (PEPCID) tablet 20 mg 20 mg Tube Nightly Don Meneses RPh,PharmD 20 mg at 07/02/252046 heparin (porcine) 25,000 unit/250 mL(100 unit/mL) in D5W infusion 0-70 Units/kg/hr Intravenous Continuous Mackenzie Biggs CNP 9.5 mL/hr at 07/03/25 1210 10 Units/kg/hr at 07/03/25 1210 heparin bolus from bag 0-5,000 Units 0-5,000 Units Intravenous Continuous PRN Mackenzie Biggs CNP 2,800 Units at 07/03/25 0448 hydrALAZINE (APRESOLINE) tablet 10 mg 10 mg Oral Q8H [facility] Mackenzie Biggs CNP 10 mg at 07/03/25 1324 insulin lispro (AdmeLOG,HumaLOG) injection 0-30 Units 0-30 Units Subcutaneous Q4H [facility] Mackenzie Biggs CNP 2 Units at 06/29/25 0757 levothyroxine (SYNTHROID, LEVOTHROID) tablet 112 mcg 112 mcg Tube Daily Don Meneses RPhPharmD 112 mcg at 07/03/25 0638 lidocaine patch 2 patch 2 patch Transdermal Daily Keyshawn Burton CNP 2 patch at 07/03/25 0809 melatonin Tab 5 mg 5 mg Tube Nightly Don Meneses RPh,PharmD 5 mg at 07/02/252046 naloxone (NARCAN) injection 0.1 mg 0.1 mg Intravenous PRN Vincenzo Dugan PA-C And naloxone (NARCAN) injection 0.4 mg 0.4 mg Intravenous PRN Vincenzo Dugan PA-C QUEtiapine (SEROQUEL) tablet 25 mg 25 mg Tube Nightly Don Meneses RPh,PharmD 25 mg at 07/02/25 2047 senna-docusate (SENNA-S) 8.6-50 mg per tablet 1 tablet 1 tablet Tube BID Zaira Don [facility],PharmD 1 tablet at 07/02/25 0849 sodium chloride (PF) (NS) 0.9 % contrast line flush 80 mL 80 mL Intravenous Once in imaging Giselle Payne MD sodium chloride (PF) (NS) flush 10 mL 10 mL Intracatheter Q8H YOLI BiggsMackenzie, BACKUP OPERATOR 10 mL at 07/01/25 1408 sodium chloride (PF) (NS) flush 10-20 mL 10-20 mL Intravenous PRN Adrianne Mi PA-C sodium chloride (PF) (NS) flush 5 mL 5 mL Intravenous PRN BiggsMackenzie verdee, BACKUP OPERATOR And sodium chloride (PF) (NS) flush 5 mL 5 mL Intravenous Q8H YOLI Biggs, Mackenzie Cunha, BACKUP OPERATOR 5 mL at 07/01/25 1411 And sodium chloride 0.9% (NS) 0-150 mL/hr Intravenous PRN BiggsMackenzie verde, BACKUP OPERATOR 0 mL/hr at 06/30/25 1507 0 mL/hr at 06/30/25 1507 sodium chloride (PF) (NS) flush 5 mL 5 mL Intravenous PRN Sharifa Tamayo, BACKUP OPERATOR And sodium chloride 0.9% (NS) 0-150 mL/hr Intravenous PRN Sharifa Tamayo BACKUP OPERATOR 15 mL/hr at 07/02/25 1213 15 mL/hr at 07/02/25 1213 sodium chloride 0.9% (NS) bolus 200 mL 200 mL Intravenous PRN Adrianne Mi PA-C sodium chloride 0.9% (NS) 1,000 mL CRRT PRN Adrianne Mi PA-C 1,000 mL at 07/03/25 1109 Progress Note Patient Name:Misael Medina :1950 Perpetual Assessment: Misael Medina is a 75 y.o. female with a past medical history of HFrEF, ESRD, DMII, HTN, HLD, morbid obesity who initially presented to [facility] on 06/25/25 after suffering a mechanical fall with LOC. Her course was complicated by respiratory failure requiring intubation on 06/25/25, MRSA bacteremia requiring HD line removal, and symptomatic bradycardia. She was transferred to [facility] CICU for management of cardiogenic and septic shock. Resume iHD 06/30. Transition to CVVH 07/01 for ongoing fluid removal. Extubated 07/02. Assessment and Plan: Acute hypoxic respiratory failure Multifactorial, secondary to shock, effusion, edema - CXR at [facility] with pulmonary edema, no focal infiltrates, right pleural effusion - Mixed acidosis on admission to [facility] - CXR (06/29) pulmonary edema with bilateral effusions - Not currently requiring sedation, maintain RASS -1 to 1 - Titrate ventilator for SpO2 >88% - Passing SBT/SAT, plan to extubate to [facility] Cardiogenic Shock Acute on chronic HFrEF Unclear etiology - Previous EF reportedly 35% in Nov 2024, now down to 20% per TTE 06/25 with moderately dilated RV - DESTIN (06/29) EF 25%, moderate and MR, 0.2 x 2.7cm mobile mass attached to the SVC wall (approx 2cm from RA) - Home medications: carvedilol, imdur, hydralazine, isordil, furosemide dapagliflozin propanediol - holding all in acute setting - Dobutamine off 07/01 - Vasopressors off 07/02 - Start low dose Hydral Sepsis, Resolved Shock MRSA Bacteremia 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) Blood cultures positive at [facility] 06/25, secondary to recently placed permacath - since removed - Previously required vasopressor support and had elevated lactate at [facility] - Lactate normal on admission to [facility] - Permacath removal 06/26 per [facility] - Thoracentesis at [facility] NGTD, Sputum culture from [facility] NGTD - Urine culture negative at [facility] - Blood cultures sent 06/29 with 2/2 +MRSA. Repeat to day per ID - CTA CAP (06/30) no nidus for infection; nodular appearance to liver, concerning for cirrhosis. Ascites and anasarca. BLL atelectasis and bilateral pleural effusions. - Bilateral upper and lower extremity 07/02 dopplers only notable for previously known RIJ thrombus - Left toe with small wound, xray unremarkable - Vanco stopped 07/02 - Continue Ceftaroline and Daptomycin per ID - DESTIN as above - ID consult; appreciate assistance Sinus Bradycardia - Resolved Reports of Afib at [facility] Unclear etiology - Hold home carvedilol - Started on isuprel at [facility], since discontinued - Changed to dobutamine on arrival to [facility] - Stable blood pressure with HR 40-50's SVC thrombus Suspect vegetation in the setting of MRSA bacteremia - Reports of SVC thrombus noted on DESTIN, awaiting imaging/reads - Continue heparin gtt - DESTIN (06/29) EF 25%, moderate and MR, 0.2 x 2.7cm mobile mass attached to the SVC wall (approx 2cm from RA) - Continue Ceftaroline and Daptomycin Right Pleural effusion Suspect secondary to acute HFrEF, volume overload - S/p thoracentesis with 850ml fluid removed - Appears exudative - Follow fluid studies from [facility] Syncopal Event Mechanical Fall with +LOC Reportedly has fallen three different times in the past week - CT (06/30) hypodensities bilateral cerebellar hemispheres - Cervical spine at [facility] nonacute - Can consider MRI brain when patient is more hemodynamically stable - No abnormal bruising or deformities noted - Supportive care Acute Encephalopathy Secondary to shock state, sedatives, infection, recent fall - [facility] (06/30) hypodensities bilateral cerebellar hemispheres - Wean sedation as able - Following commands throughout on exam - Treatment of infection as above ESRD Historical since March 2025, with dialysis T/R/Sat - Right permacath removed 06/26 per [facility] - Creatine 6.51 on admission, electrolytes stable - Nephrology consult for iHD; non emergent but will need in coming days - HD line placed to left femoral vein in the setting of SVC thrombus/mobile mass - Tolerated iHD 06/29, however transitioned to CRRT for continuous fluid removal Aortic Valve Stenosis Per history - Monitor volume status closely - Avoid over-diuresis/aggressive volume removal with HD Unplanned Weight Loss Failure to Thrive 70lb weight loss since 10/2024 - Per family, does not eat very much at home but does drink water throughout the day - Pca consulted for tube feeding evaluation; add trickle - Palliative consult Chronic anemia Suspect secondary to ESRD, baseline 10-11 per reports - Presented with Hgb 10.5 - No outward signs of bleeding - Trend CBC daily, expand w/u pending trajectory Hypothyroidism Per history - TSH/FT4 pending - Continue levothyroxine DMII Historical - Home meds: farxiga - Hgb A1c 6.6 on admission - SSI +/- basal for BG goal <180 HTN Historical - Home meds: carvedilol, imdur - Afterload plan outlined above HLD Historical - Home meds: ASA, atorvastatin - Continue home ASA and statin Morbid obesity Historical - Lifestyle modifications Incidental Findings: NA Critical Care Checklist : updated 07/03/25 SBT: Not Intubated SAT: Not Sedated ,RASS Goal -1 to +1 Order updated yes, Current N/A Delirium: CAM-ICU positive (delirium) HOBBER consulted yes/no: yes Restraints: N/A Bowel Regimen: Senna-Docusate and Last BM 07/02 Prophylaxis: DVT: Heparin infusion, (A Fib) Lines/Tubes: Right Radial A-line (placed 06/30), Left femoral HD line (placed 06/30) No tubes Antibiotics: Ceftaroline, Daptomycin, Indication (MRSA bacteremia), and End Date (TBD) Mobility goal: PT/OT consult Nutrition: Dietitian consulted Blood Glucose: Sliding scale insulin Sleep Hygiene: PRN Melatonin Code Status: Full Code Family Update: and daughter updated bedside. Plan discussed with Subjective and Review of Systems: Misael seen and examined this morning in follow up. Misael states she feels well. Reporting mild back pain. [x] All other systems were reviewed and negative except for those as specified in History of Present illness. [] Unable to obtain history or ROS secondary to clinical circumstances Physical Exam: PHYSICAL EXAM: General appearance: overweight and ill-appearing Head: atraumatic, normocepahlic Mouth: mucous membranes moist, pharynx normal without lesions Eyes/Pupils: pupils equal and reactive, extraocular eye movements intact Neck: supple, no significant adenopathy Chest: clear to auscultation, no wheezes, rales or rhonchi, symmetric air entry CV: normal rate, regular rhythm, normal S1, S2, no murmurs, rubs, clicks or gallops Abdomen: distended Extremities: peripheral pulses normal, no pedal edema, no clubbing or cyanosis Skin: Left 4th toe wound Neurological:Moving all 4, answering questions. Not oriented Speech Pathology Daily Note Dysphagia Only Treatment Recommendations: NPO Recommendations: Except ice chips following oral care, Except medication with puree Further Eval Rxs: MBS pending medical clearance. Likely 07/04 if cleared by medical team. Medication Presentation: Crushed in puree Further Recommendations: Oral care TID, Perform/Repeat instrumental assessment prior to diet advancement Skilled therapy needs: Skilled Therapy Needs: Are ST Skilled Therapy Services Needed After Discharge: Yes Functional Limitations: dysphagia, anticipate difficulty with household activities Intensity of ST Skilled Therapy: 5 to 7 days per week Anticipated Duration of ST Skilled Therapy: Duration 10 - 30 days Speech Plan: Further acute Speech Therapy services indicated: Yes Role of ST Discussed: With patient, With family/caregiver Risk/Benefits of ST Discussed: With patient, With family/caregiver Patient Goal for Treatment: To go home Rehab Potential: Good, for established goals Further Recommendations: MBS Factors for returning to Prior Level of Function: Factors for Returning to Prior Level of Function Body Structure and Function: Musculoskeletal impairment, Cardiopulmonary impairment Explain Impairments: HFrEF, ESRD, DMII, HTN, HLD, morbid obesity who initially presented to [facility] on 06/25/25 after suffering a mechanical fall with LOC. Her course was complicated by respiratory failure requiring intubation on 06/25/25, MRSA bacteremia requiring HD line removal, and symptomatic bradycardia. She was transferred to [facility] CICU for management of cardiogenic and septic shock. Activities and Participation: Swallowing limitation Explain Limitations: r/o dysphagia Environmental Factors: Home situation, Family/caregiver support Explain Environmental Factors: [facility], but initially at home Personal Factors: Awareness of own capacity and performance Explain Personal Factors: further assessment HOBBER Caregiver Readiness: HOBBER Caregiver Readiness ST Rationale: Working toward discharge home ST Training Progress: Initiated & ongoing - follow-up required ST Identified Caregiver: Spouse, Other (comment) (daughter in-law) Caregiver Present for ST Session: Yes ST Training Provided For: Cognition - follow-up required, Oral Care - completed, Importance of follow-up therapy - completed, Results of MBS/FEES - follow-up required Caregiver response to training: Verbalizes understanding HOBBER Assessments HOBBER Assessments Subjective Impression: Alert, Cooperative, Pleasant Mood, Caregiver/family at bedside (eyes remained closed) Respiratory Status: Nasal cannula Dentition: Permanent Self-Feeding Barriers: Impaired for self-feeding Patient Positioning: Upright in bed (restless) Secretion Management: Xerostomia Oral Care: HOBBER performed, with suction toothbrush Volitional Swallow: Present Skilled Interventions and Response to Interventions: Oral Care Oral Care: Patient education/training Oral Care - Patient education/training: neutral response to intervention Risk of Aspiration Risk of Aspiration: Patient education/training, Caregiver/family education/training with patient involvement Risk of Aspiration - Patient education/training: neutral response to intervention Risk of Aspiration - Caregiver/family education/training with patient involvement: verbalized comprehension of presented information, improved ability to understand / adhere to precautions BSE/MBS/FEES BSE/MBS/FEES: Patient education/training, Caregiver/family education/training with patient involvement BSE/MBS/FEES - Patient education/training: neutral response to intervention BSE/MBS/FEES - Caregiver/family education/training with patient involvement: verbalized comprehension of presented information Therapeutic Trials Therapeutic Trials: Ice chips, Thin liquids Therapeutic Trials - Thin Liquids: multiple spontaneous swallows, no overt s/sx penetration/aspiration Therapeutic Trials - Ice chips: multiple spontaneous swallows, no overt s/sx penetration/aspiration Past Medical History: Diagnosis Date Arthritis Cataracts, bilateral Colon polyp 2011 Tubular adenoma Diabetes (HCC) Endometrial cancer (HCC) 08/2014 s/p Hysterectomy and External beam radiation as well as internal radiation, no chemo...[facility]COLOGIST: [facility] [place] (Dr. Ryan) Hyperlipidemia Hypertension Morbid obesity (HCC) Thyroid disease Past Surgical History: Procedure Laterality Date CHOLECYSTECTOMY 1997 COLONOSCOPY 06/02/2012 tubular adenoma removal...Dr. Funez COLONOSCOPY 06/16/2017 Normal....Dr. Funez EAR PIERCINGS HYSTERECTOMY 08/2014 for Endometrial CA TEETH EXTRACTION For complete objective data, detailed plan of care, and education refer to: Speech Comm/Cog Eval, Speech Bedside Swallow Evaluation, and HOBBER Daily flowsheet, as well as patient Plan of Care and Education documentation. This note stands as the current Discharge Summary upon patient discharge from the hospital or completion of Speech Pathology Plan of Care NEPHROLOGY PROGRESS NOTE [facility] Patient Name: Misael Medina MR#: [id number] : 1950 Admit Date: [id number] Physicians: Donal Will MD (Family); Saeed Zelaya MD (Referring) Attending: Erum Diego MD Reason for Consultation/History of Present Illness Patient is a 75yo female with history of JOSUE on CKD III secondary to ATN requiring HD, HFrEF, HTN, Type II DM, hypothyroidism, and morbid obesity. She initially presented to [facility] on 06/25/25 after a mechanical fall with LOC. Her course was complicated by acute respiratory failure requiring intubation (06/25) and MRSA bacteremia requiring perm cath removal for line holiday, and bradycardia. She was transferred to [facility] 06/28/25 for further management We are asked to manage dialysis. Assessment and Plan: 1) JOSUE on CKD III-->likely now ESRD -Started HD in March 2025 -Bx proven ATN -TTS at [facility] with Dr. Leon -Reyna chest perm cath removed [facility] (06/26) d/t MRSA bacteremia - patient was on CVVH as last HD treatment was not well tolerated with inability to remove fluid. This was stopped this morning. Patient was successfully extubated, hemodynamically stable not on pressors, over 4 liters was removed yesterday on CRRT - can discontinue CRRT and plan on transitioning back to conventional HD tomorrow 2) Acute hypoxemic respiratory failure -Intubated at OSH [facility] - has been extubated with fluid removal with ELEVATOR CONSTRUCTOR 3) MRSA bacteremia -Blood cx positive at OSH; thought secondary to perm cath (now removed); repeat cx positive x2 06/29 -ID following; on daptomycin and ceftaroline - will need clearance of bacteremia prior to permcath placement 4) Anemia of CKD - hemoglobin >10, which is in target for ESRD Following Discussed with patients nurse at bedside Can transition back to HD tomorrow Tamir Vernon MD [facility] Cell phone in [facility] directory for staff use only [phone] office/answering service After hours (5p-7a weekdays and all day on weekends) please contact the answering service to be directed to the on-call provider Subjective Patient seen and examined in ICU. Patient is laying in bed, restless and uncomfortable and pulling herself to side of bed, she has her eyes closed but appears to be listening to me and nods to what I am telling her. Discussed with nurse at bedside, CRRT stopped this morning. Was tolerating upwards of 250 cc per hour removal over course of yesterday, backed down slightly overnight, patient did have some bradycardia. Patient was extubated yesterday morning and is currently hemodynamically stable. Will discontinue CRRT orders and we can transition back to HD tomorrow. Discussed with patient that her permcath was removed and she has a femoral temp HD line and that when infection clears will need permcath replaced. She nods to this. Objective Vitals: BP (!) 133/109 (BP Location: Right arm) Comment (BP Location): lower arm Pulse 76 Temp 96.9 F (36.1 C) (Axillary) Resp (!) 27 Ht 5' Wt 101.9 kg (224 lb 10.4 oz) SpO2 90% BMI 43.87 kg/m Intake/Output last 3 shifts: Intake/Output Summary (Last 24 hours) at 07/03/2025 1151 Last data filed at 07/03/2025 1000 Gross per 24 hour Intake 831.66 ml Output 4911 ml Net -4079.34 ml I/O last 3 completed shifts: In: 2275 [I.V.:612.7; NG/GT:275; IV Piggyback:900.3] Out: 6995 Wt Readings from Last 3 Encounters: 07/03/25 101.9 kg (224 lb 10.4 oz) 05/31/17 122 kg (269 lb) Physical Examination: General: elderly female, ill appearing but in no acute distress, restless and uncomfortable laying in bed, pulling herself on bedrail to side of bed Neuro: somnolent but nods to questions Cardiac: Regular rate Pulmonary: nonlabored respirations Abdominal: Obese Skin: no jaundice or malar rash Access: left femoral temp HD line Results/Medications Reviewed: 07/03/25 11:51 AM: Laboratory, Microbiology, Pathology, Radiology, Cardiology, Medications and Transcriptions Scheduled Meds: atorvastatin 10 mg Tube Nightly ceftaroline (TEFLARO) IVPB 400 mg Intravenous Q8H DAPTOmycin (CUBICIN) IV 10 mg/kg (Adjusted) Intravenous Q24H famotidine 20 mg Tube Nightly hydrALAZINE 10 mg Oral Q8H YOLI insulin lispro 0-30 Units Subcutaneous Q4H [facility] levothyroxine 112 mcg Tube Daily lidocaine 2 patch Transdermal Daily melatonin 5 mg Tube Nightly QUEtiapine 25 mg Tube Nightly senna-docusate 1 tablet Tube BID sodium chloride (PF) 10 mL Intracatheter Q8H YOLI sodium chloride (PF) 5 mL Intravenous Q8H YOLI Continuous Infusions: heparin infusion (weight based dosing) 12 Units/kg/hr (07/03/25 1000) heparin Laboratory: Results from last 7 days Lab Units 07/03/25 0416 07/02/25 0446 07/01/25 0423 WBC K/mcL 16.32* 14.39* 13.61* HGB g/dL 10.8* 10.8* 10.8* HCT % 34.8* 34.2* 34.3* PLT K/mcL 151 151 124* Results from last 7 days Lab Units 07/03/25 0545 07/03/25 0030 07/02/25 1744 SODIUM mmol/L 134* 137 136 POTASSIUM mmol/L 3.8 4.1 4.2 CHLORIDE mmol/L 101 102 102 BICARB mmol/L 20* 20* 20* BUN mg/dL 14 16 19 CREATININE mg/dL 1.25* 1.49* 1.70* EGFR mL/min/1.73 m2 45* 36* 31* GLUCOSE mg/dL 105* 109* 120* CALCIUM mg/dL 8.7 8.8 8.4 PHOSPHORUS mg/dL 2.6* 2.7* 2.9 Palliative Medicine - Progress Note PATIENT: Misael Medina : 1950 ADMISSION DATE: 06/28/2025 5:52 PM Clinical Summary: Misael Medina is a 75 y.o. y/o female with a history of HFrEF, ESRD (since March 2025), T2DM, HTN, HLD, and morbid obesity who initially presented to [facility] on 06/25/25 after suffering a mechanical fall. Her course was complicated by respiratory failure requiring intubation on 06/25/25, MRSA bacteremia requiring HD line removal, and symptomatic bradycardia. She was transferred to [facility] for management of cardiogenic and septic shock. She presented to [facility] on 06/28/2025. Palliative Medicine was consulted on hospital day 4 for assistance with Clarification of Goals of Care (GOC). Assessment / Recommendations Palliative Care Encounter At this time, Misael Medina, does not demonstrate capacity for medical decision-making. Capacity is time limited and situation/question specific. No HCPOA documents on file. If we do not obtain completed HCPOA documentation, we must follow [place] surrogate decision making priority rules per [place] Revised Code in descending order of priority as follows: 1) guardian 2) spouse 3) majority of adult children 4) patient's parents 5) majority of adult siblings of patient 6) nearest adult who his related by blood or adoption. Her surrogate decision maker is her spouse/. Initially spoke via phone with her /Jonny on 07/02 Again spoke via phone 07/03. Her plans to visit bedside later today. Bedside nursing and ICU SAYRA updated. Patient with multiple life threatening concerns, thus concern for overall poor prognosis remains. Code status not discussed, FULL CODE remains Pertinent Hospital Diagnoses Acute Hypoxic Respiratory Failure - intubated at OSH prior to [facility] admit, extubated 07/02 Severe Sepsis Acute on Chronic HFrEF - also noting RV dysfunction MRSA Bacteremia ESRD SVC Thrombus Mechanical Fall - prompting initial hospitalization T2DM HTN Morbid Obesity Palliative Medicine Follow-up Round daily I reviewed my assessment and plan of care with ICU SAYRA and RN. Thank you for the opportunity to participate in the care of Misael Medina. Clarita Aguilar, Office: [phone] Cell: see treatment team Subjective Data Ed seen supine in bed. Limited interaction with attempted greeting. When I told her I would call her /Jonny she said ok. Call placed to Jonny. He is planning to leave his home in the next 1 hour, coming to [facility] with his daughter in law. I provided update that Ed is off ventilator support at present time but notably restless at times. He notes she is someone who always wants to be busy, often doing something with her hands, such as counting cross stitches during a car ride. [] ROS is negative except what is stated above with the notable exceptions: [x] Unable to obtain review of systems due to intubation/neurologic status: Objective Data BP (!) 76/47 Pulse (!) 48 Temp 96.9 F (36.1 C) (Axillary) Resp 15 Ht 5' Wt 101.9 kg (224 lb 10.4 oz) SpO2 97% BMI 43.87 kg/m Physical Exam: CONSTITUTIONAL: No acute distress. Supine in bed. Elderly appearing white female. Minimally interactive in simple conversation attempts. EYES: Eyes open, no scleral icterus bilaterally. RESP: No increased work of breathing or accessory muscle use NEURO: No tremors or myoclonus. Billing: I spent 35 minutes in total time today including chart review, care coordination and visit to bedside. Palliative Medicine Social Work - Follow Up Visit LI Neumann LISW [facility] Assessment / Recommendations Visit Type: General Support and Information Gathering Interventions & Topics Discussed: Identified supports Identified Clinical Considerations from Assessment: Adjustment to illness Access/barriers to care Comorbidities/other stressors Details from Interaction: Palliative medicine team continues to follow for assistance with goals of discussions. Per chart review, Ed was medically extubated yesterday afternoon. She remains off the ventilator, CRRT continues. Collaborated with Meme Burton/MICU BACKUP OPERATOR and Philip Colin/bedside RN, alongside Dr. Clarita Aguilar/palliative physician. Dr. Aguilar spoke with Jonny/spouse/BRADY today who confirms he is visiting today along with his mtiyxmir-co-ero. Implications for Medical Care/Decision Making: If surrogate decision making is needed, Legal next of kin is Jonny Medina/spouse ([phone]). Follow-Up: Ongoing psychosocial support related to current clinical situation and complex decision making. Palliative medicine team will continue to follow. CHUCKY Neumann [facility] Palliative Medicine Office # [phone] INFECTIOUS DISEASES DAILY PROGRESS NOTE Patient Name: Misael Medina MR #: [id number] Date of Service: 07/03/2025 Impression/Recommendations: 1) MRSA bacteremia 2) shock 3) ESRD/CKD recently on HD 4) h/o aortic stenosis 5) SVC thrombus 6) infected dialysis catheter 7) DM2 Patient with persistent MRSA bacteremia 06/25-06/27 per OSH records, HD catheter removed 06/26 with purulence at site. Ongoing instability requiring transfer. - changed to daptomycin plus ceftaroline per pharmacy 07/02. CPK and LFTs reviewed, check at least weekly. - blood cx 06/27 positive. Blood cx 06/29 positive, blood cx 07/02 ordered - pt had HD catheter removed 06/26, there was still infected-looking fluid coming from site. No obvious abscess on CT chest. Improved. - DESTIN 06/29 with SVC thrombus, no obvious other vegetation - right femoral CVC removed 07/02. Acute right internal jugular thrombus on US. May be challenging line placement. - nephrology following, CRRT initiated. Femoral temp HD catheter in place - monitor for joint/back pain; RN states pt c/o back pain. Patient would not tolerate MRI currently but may need to consider. - abnormal head CT 06/30, consider MRI brain when able. - some purulence of left toe, d/w wound care. XR pending, consider podiatry evaluation if worsens. - further recommendations pending clinical course. Prognosis appears guarded. Palliative care team involved. Discussed with [facility]. Perpetual Assessment: Misael Medina is a 75 y.o. female on hospital day 5 with MRSA bacteremia. Subjective/Objective: Subjective: Patient was seen and examined in follow-up. Extubated, restless, says help me. At one point states she wishes she was in [place]. On CRRT. Review of Systems: The following system(s) were reviewed and negative. Pertinent positive and negative findings are noted in the HPI. [] Const [] Eyes [] ENT [] Resp [] CV [] GI [] [] Neuro [] Musc [] Skin [] Psych [] Endo [] Allergy [] Heme/Lymph [x] Unable to obtain due to clinical status Physical Examination: BP (!) 76/47 Pulse 74 Temp 96.9 F (36.1 C) (Axillary) Resp (!) 22 Ht 5' Wt 101.9 kg (224 lb 10.4 oz) SpO2 90% BMI 43.87 kg/m General: Ill appearing, restless HEENT: Head: NCAT. Eyes: conjunctiva and sclera clear. OP dry mm Neck: Symmetrical Prior HD catheter site remains irritated, no drainage Respiratory: Diminished, scattered coarse Cardiovascular: Distant S1S2 Abdomen: Soft; obese, nontender, nondistended Extremities: + edema Musculoskeletal: Left toe with small wound Skin: No diffuse rash, pale : Jimenez Lines: Femoral HD catheter Laboratory and Additional Data Reviewed: Laboratory 07/03/25 8:33 AM Microbiology 07/03/25 8:33 AM Pathology 07/03/25 8:33 AM Radiology 07/03/25 8:33 AM Cardiology 07/03/25 8:33 AM Medications 07/03/25 8:33 AM Transcriptions 07/03/25 8:33 AM Current medications: lidocaine 1% (PF) atorvastatin 10 mg Tube Nightly ceftaroline (TEFLARO) IVPB 400 mg Intravenous Q8H DAPTOmycin (CUBICIN) IV 10 mg/kg (Adjusted) Intravenous Q24H famotidine 20 mg Tube Nightly insulin lispro 0-30 Units Subcutaneous Q4H YOLI levothyroxine 112 mcg Tube Daily lidocaine 2 patch Transdermal Daily melatonin 5 mg Tube Nightly QUEtiapine 25 mg Tube Nightly senna-docusate 1 tablet Tube BID sodium chloride (PF) 10 mL Intracatheter Q8H YOLI sodium chloride (PF) 5 mL Intravenous Q8H YOLI Results from last 7 days Lab Units 07/03/25 0416 07/02/25 0446 07/01/25 0423 WBC K/mcL 16.32* 14.39* 13.61* HGB g/dL 10.8* 10.8* 10.8* HCT % 34.8* 34.2* 34.3* PLT K/mcL 151 151 124* Results from last 7 days Lab Units 07/03/25 0545 07/03/25 0030 07/02/25 1744 SODIUM mmol/L 134* 137 136 POTASSIUM mmol/L 3.8 4.1 4.2 CHLORIDE mmol/L 101 102 102 BUN mg/dL 14 16 19 CREATININE mg/dL 1.25* 1.49* 1.70* GLUCOSE mg/dL 105* 109* 120* CALCIUM mg/dL 8.7 8.8 8.4 Comments: WBC 16.32, Cr 1.25 LFTs reviewed Jane micro lab: Blood cx 06/25 MRSA Blood cx 06/26 MRSA Blood cx 06/27 (from central line) MRSA Cath tip 06/26 staph aureus (presumed MRSA) Pleural fluid 06/28 NGTD Sputum cx 06/25 normal nadia Urine cx 06/25 yeast (not albicans) and GNB Wound cx 03/19/25 (unknown source) staph epi, MRSA, E faecalis, corynebacterium. Wound cx 03/16/25 (unknown source) E casseliflavus, E avium, GPR Blood cx [facility] 06/29 2 of 2 MRSA, vancomycin DELIA 1.0 Blood cx 07/02 NGTD CTPA, A/P report Jane reviewed TTE report reviewed DESTIN 06/29: 1. Left ventricular systolic function is severely reduced, with ejection fraction estimated at 20 +/- 5%. 2. Right ventricular systolic function is moderate to severely reduced. 3. There is no thrombus visualized in the left atrial appendage. 4. There is mild to moderate aortic valve stenosis with valve area of 1.5 cm2. 5. There is moderate mitral valve regurgitation. 6. There is no pericardial effusion. 7. A 0.5 x 2.7 cm, mobile mass appears to be attached to the wall of the SVC approximately 2 cm from the right atrial interface. This finding is consistent with thrombus. Associated infection cannot be excluded. CT CAP 06/30: 1. Appropriately positioned ETT and gastric tube. 2. Cardiomegaly, pulmonary edema and bilateral pleural effusions suggesting decompensated CHF. 3. Heavy three-vessel coronary artery calcifications. 4. Complete atelectasis of the bilateral lower lobes adjacent to the large effusions. 5. Common bile duct measuring 10 mm. This may represent reservoir effect related to patient's age and history of cholecystectomy. 6. Ascites in all 4 quadrants and anasarca in the body wall compatible with volume overload. CT head 06/30: 1. Evaluation is limited due to extensive streaking artifact from dental hardware as well as patient motion. Ill-defined hypodensities throughout the bilateral cerebellar hemispheres are nonspecific and could be artifactual. Consider MRI brain if clinically warranted. 2. No gross intracranial hemorrhage. Assessment Detail: The total time spent for this visit was 50 minutes. Greater than 50% of the time was spent in counseling and coordination of care regarding MRSA bacteremia, SVC thrombus. Toño Stewart MD [facility] - Infectious Diseases Office/answering service [phone] 07/03/2025 8:33 AM [facility] CICU Attending Service Note 07/02/2025 3:09 PM Patient: Misael Medina Room: [address] [place] [address] Admitting Physician: Erum Diego MD Date of Admit: 06/28/2025 5:52 PM Brief History: Misael Medina is a 75 y.o. female with a history of HFrEF, ESRD on iHD, DM who presented in transfer from OSH for MRSA bacteremia, shock, and respiratory failure. 24 Hour Events: Transitioned to CVVH for fluid removal. Remains bacteremic. Able to wean off pressors overnight. Physical Exam Temp: [96.1 F (35.6 C)-96.3 F (35.7 C)] 96.3 F (35.7 C) Heart Rate: [41-108] 108 Resp: [7-28] 19 FiO2 (%): 40 General: Chronically ill HEENT: Normocephalic, without obvious abnormality, atraumatic. Lungs: mechanically ventilated. Chest wall: No tenderness or deformity. Heart: Tachycardic Abdomen: Soft, non-tender, non-distended. Extremities: No edema, wound noted to L foot (see media) Vascular: Extremities warm, well perfused. Skin: Skin color, texture, turgor normal. No rashes or lesions Neurologic: Non-focal, confused. I reviewed available and/or new lab and imaging studies as indicated and discussed the patient's course with nursing and network support specialist. This note represents my independent evaluation and assessment of the patient. Assessment & Plan Shock: multifactorial, but primarily distributive/septic shock from MRSA bacteremia, in patient with known heart failure. Currently off vasopressors and tolerating fluid removal with CVVH. Treating bacteremia as below with concern for infected SVC thrombus. HFrEF: with baseline LVEF of 35%, down to 20% here in setting of stress/shock state. Holding all home GDMT given borderline blood pressures. Not yet ready for GDMT to restart. Acute hypoxic respiratory failure: in setting of shock and volume overload in ESRD patient. Passing SAT/SBT mechanically this AM, although remains intermittently agitated. Will attempt trial of extubation this morning and wean LFNC as tolerates. MRSA bacteremia: in setting of permanent HD line, now removed, but with concern for infected R/IJ SVC thrombus seen on DESTIN. D/w ID today; OSH thoracentesis, urine, and sputum cultures remain NGTD with CTA C/A/P without source as well. Small wound on L foot unlikely source but will get plain film for thoroughness. Will also complete DVT scans of other extremities. Will transition to dapto/ceftaroline given persistent MRSA bacteremia. DESTIN without evidence of endocarditis (with mobile mass in RA thought to be thrombus). May consider spinal MRI although no complaints historically of back pain. ESRD: historical, now on CRRT for volume removal, to continue. Nephrology following. May be able to transition back to iHD in next 24h if hemodynamics remain stable. Encephalopathy: in setting of critical illness, with abnormal head CT at OSH concerning for cerebellar infarcts. Would recommend MRI brain when more stable. Following basic commands but appears delirious. Overall poor long-term prognosis given multiple organ failure/dysfunction and persistent bacteremia. Appreciate palliative involvement for GOC. hopeful to visit early this week. Critical Care Time: 32 minutes of direct delivery of critical care services (excluding procedures) were provided today due to the high probability of clinically significant life threatening deterioration due to acute hypoxic respiratory failure, shock, renal failure requiring CRRT that required my urgent intervention. It involved decision making of high complexity to assess, manipulate and support vital organ systems including but not limited to the central nervous system, circulatory failure, shock, renal, hepatic, metabolic or respiratory failure. I personally reviewed the clinical course, hemodynamics, respiratory parameters, laboratory data and radiological studies. A physical exam was completed by myself and documented above. I managed/supervised life or organ supporting interventions that required frequent physician assessment. Time I spent with family or surrogate(s) is included only if the patient was incapable of providing the necessary information or participating in medical decision making. Intake/Output Summary (Last 24 hours) at 07/02/2025 1509 Last data filed at 07/02/2025 1400 Gross per 24 hour Intake 1758.58 ml Output 3755 ml Net -1996.42 ml I/O last 3 completed shifts: In: 2079.1 [I.V.:739.1; Other:300; NG/GT:160; IV Piggyback:500] Out: 4037 [Emesis/NG output:100; Other:1300] Wt Readings from Last 3 Encounters: 07/02/25 100.3 kg (221 lb 1.9 oz) 05/31/17 122 kg (269 lb) Medications Current Medications[1] Additional Data: Vent Settings with 8 Hour Lookback: FiO2 (%): 40 S RR: 15 S VT: 300 PEEP/CPAP (cm H2O): 5 Lab Results Component Value Date LABGRAM Gram Positive Cocci in clusters (A) 06/29/2025 Lab Results Component Value Date LABGRAM Gram Positive Cocci in clusters (A) 06/29/2025 Eurm Diego MD Cardiovascular Critical Care [facility] [1] Current Facility-Administered Medications Medication Dose Route Frequency Provider Last Rate Last Admin atorvastatin (LIPITOR) tablet 10 mg 10 mg Tube Nightly Don Meneses, [facility],PharmD 10 mg at 07/01/252012 bisacodyL (DULCOLAX) suppository 10 mg 10 mg Rectal Daily PRN Mackenzie Biggs CNP ceftaroline (TEFLARO) 400 mg in sodium chloride 0.9 % (NS) 50 mL IVPB 400 mg Intravenous Q8H Toño Stewart MD Stopped at 07/02/25 1320 CRRT BGK 4/2.5 with calcium (PRISMASATE) 5000 ml solution CRRT Continuous Winston Vernon MD New Bag at 07/02/25 1237 And CRRT BK4/2.5 (PHOXILLUM) 5000 mL solution CRRT Continuous Winston Vernon MD 5,000 mL at 07/02/25 1238 CRRT heparin 5000 units in 1000 mL sodium chloride 0.9% 2,000 mL CRRT PRN Adrianne Mi PA-C DAPTOmycin (CUBICIN) IVP syringe 700 mg 10 mg/kg (Adjusted) Intravenous Q24H Toño Stewart MD 700 mg at 07/02/25 1214 famotidine (PEPCID) tablet 20 mg 20 mg Tube Nightly Don Meneses [facility],PharmD 20 mg at 07/01/252012 heparin (porcine) 25,000 unit/250 mL(100 unit/mL) in D5W infusion 0-70 Units/kg/hr Intravenous Continuous Mackenzie Biggs CNP 9.5 mL/hr at 07/02/25 1400 10 Units/kg/hr at 07/02/25 1400 heparin bolus from bag 0-5,000 Units 0-5,000 Units Intravenous Continuous PRN Mackenzie Biggs CNP 2,800 Units at 06/30/25 2225 insulin lispro (AdmeLOG,HumaLOG) injection 0-30 Units 0-30 Units Subcutaneous Q4H [facility] Mackenzie Biggs CNP 2 Units at 06/29/25 0757 levothyroxine (SYNTHROID, LEVOTHROID) tablet 112 mcg 112 mcg Tube Daily Don Meneses [facility],PharmD 112 mcg at 07/02/25 0459 melatonin Tab 5 mg 5 mg Tube Nightly Don Meneses [facility],PharmD 5 mg at 07/01/252012 naloxone (NARCAN) injection 0.1 mg 0.1 mg Intravenous PRN Vincenzo Dugan PA-C And naloxone (NARCAN) injection 0.4 mg 0.4 mg Intravenous PRN Vincenzo Dugan PA-C QUEtiapine (SEROQUEL) tablet 25 mg 25 mg Tube Nightly Don Meneses [facility],PharmD 25 mg at 07/01/252012 senna-docusate (SENNA-S) 8.6-50 mg per tablet 1 tablet 1 tablet Tube BID Don Meneses [facility],PharmD 1 tablet at 07/02/25 0849 sodium chloride (PF) (NS) 0.9 % contrast line flush 80 mL 80 mL Intravenous Once in imaging Giselle Payne MD sodium chloride (PF) (NS) flush 10 mL 10 mL Intracatheter Q8H [facility] Mackenzie Biggs CNP 10 mL at 07/01/25 1408 sodium chloride (PF) (NS) flush 10-20 mL 10-20 mL Intravenous PRN Adrianne Mi PA-C sodium chloride (PF) (NS) flush 5 mL 5 mL Intravenous PRN Mackenzie Biggs CNP And sodium chloride (PF) (NS) flush 5 mL 5 mL Intravenous Q8H YOLI Mackenzie Biggs BACKUP OPERATOR 5 mL at 07/01/25 1411 And sodium chloride 0.9% (NS) 0-150 mL/hr Intravenous PRN Mackenzie Biggs CNP 0 mL/hr at 06/30/25 1507 0 mL/hr at 06/30/25 1507 sodium chloride (PF) (NS) flush 5 mL 5 mL Intravenous PRN Sharifa Tamayo CNP And sodium chloride 0.9% (NS) 0-150 mL/hr Intravenous PRN Sharifa Tamayo CNP 15 mL/hr at 07/02/25 1213 15 mL/hr at 07/02/25 1213 sodium chloride 0.9% (NS) bolus 200 mL 200 mL Intravenous PRN Adrianne Mi PA-C sodium chloride 0.9% (NS) 1,000 mL CRRT PRN Adrianne Mi PA-C 1,000 mL at 07/01/25 1116 sodium phosphate 15 mmol in dextrose (D5W) 5% 250 mL IVPB 15 mmol Intravenous Once Keyshawn Burton CNP Today I reviewed Misael Medina, 75 y.o. year old Female from [place] [address] with identified taoism preference of No rastafarian on file. Narrative Attempted to visit with patient/Ed, but she was being helped by another member of the medical team at time of visit. No visitors present. Conferred with staff regarding patient condition and plan of care. Palliative care will continue to follow with you. Please call with any needs. Plan & Recommendations Pop Singer will remain available to provide spiritual support as needed. Consult Pop Singer if patient or family requests. Time spent in direct patient care, conferral with staff regarding patient condition/plan of care and chartin min. Rev. Adi Wylie DMin, [facility] Advanced Pop Singer Practitioner [facility] Progress Note Patient Name:Misael Medina :1950 Perpetual Assessment: Misael Medina is a 75 y.o. female with a past medical history of HFrEF, ESRD, DMII, HTN, HLD, morbid obesity who initially presented to [facility] on 06/25/25 after suffering a mechanical fall with LOC. Her course was complicated by respiratory failure requiring intubation on 06/25/25, MRSA bacteremia requiring HD line removal, and symptomatic bradycardia. She was transferred to [facility] CICU for management of cardiogenic and septic shock. Resume iHD 06/30. Transition to CVVH 07/01 for ongoing fluid removal. Extubated 07/02. Assessment and Plan: Acute hypoxic respiratory failure Multifactorial, secondary to shock, effusion, edema - CXR at [facility] with pulmonary edema, no focal infiltrates, right pleural effusion - Mixed acidosis on admission to [facility] - CXR (06/29) pulmonary edema with bilateral effusions - Not currently requiring sedation, maintain RASS -1 to 1 - Titrate ventilator for SpO2 >88% - Passing SBT/SAT, plan to extubate to [facility] Cardiogenic Shock Acute on chronic HFrEF Unclear etiology - Previous EF reportedly 35% in Nov 2024, now down to 20% per TTE 06/25 with moderately dilated RV - DESTIN (06/29) EF 25%, moderate and MR, 0.2 x 2.7cm mobile mass attached to the SVC wall (approx 2cm from RA) - Home medications: carvedilol, imdur, hydralazine, isordil, furosemide dapagliflozin propanediol - holding all in acute setting - Dobutamine off 07/01 - Vasopressors off 07/02 Sepsis, Resolved Shock MRSA Bacteremia 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) Blood cultures positive at [facility] 06/25, secondary to recently placed permacath - since removed - Previously required vasopressor support and had elevated lactate at [facility] - Lactate normal on admission to [facility] - Permacath removal 06/26 per [facility] - Thoracentesis at [facility] NGTD, Sputum culture from [facility] NGTD - Urine culture negative at [facility] - Blood cultures sent 06/29 with 2/2 +MRSA. Repeat to day per ID - CTA CAP (06/30) no nidus for infection; nodular appearance to liver, concerning for cirrhosis. Ascites and anasarca. BLL atelectasis and bilateral pleural effusions. - Bilateral upper and lower extremity 07/02 dopplers only notable for previously known RIJ thrombus - Left toe with small wound, check left foot xray for possible osteomyelitis - Stop Vanco - Start Ceftaroline and Daptomycin per ID - DESTIN as above - ID consult; appreciate assistance Sinus Bradycardia Reports of Afib at [facility] Unclear etiology - Hold home carvedilol - Started on isuprel at [facility], since discontinued - Changed to dobutamine on arrival to [facility] - Stable blood pressure with HR 40-50's SVC thrombus Suspect vegetation in the setting of MRSA bacteremia - Reports of SVC thrombus noted on DESTIN, awaiting imaging/reads - Continue heparin gtt - DESTIN (06/29) EF 25%, moderate and MR, 0.2 x 2.7cm mobile mass attached to the SVC wall (approx 2cm from RA) - Transition to Ceftaroline and Daptomycin Right Pleural effusion Suspect secondary to acute HFrEF, volume overload - S/p thoracentesis with 850ml fluid removed - Appears exudative - Follow fluid studies from [facility] Syncopal Event Mechanical Fall with +LOC Reportedly has fallen three different times in the past week - CT (06/30) hypodensities bilateral cerebellar hemispheres - Cervical spine at [facility] nonacute - Can consider MRI brain when patient is more hemodynamically stable - No abnormal bruising or deformities noted - Supportive care Acute Encephalopathy Secondary to shock state, sedatives, infection, recent fall - CT (06/30) hypodensities bilateral cerebellar hemispheres - Wean sedation as able - Following commands throughout on exam - Treatment of infection as above ESRD Historical since March 2025, with dialysis T/R/Sat - Right permacath removed 06/26 per [facility] - Creatine 6.51 on admission, electrolytes stable - Nephrology consult for iHD; non emergent but will need in coming days - HD line placed to left femoral vein in the setting of SVC thrombus/mobile mass - Tolerated iHD 06/29, however will transition to CVVH for continuous fluid removal Aortic Valve Stenosis Per history - Monitor volume status closely - Avoid over-diuresis/aggressive volume removal with HD Unplanned Weight Loss Failure to Thrive 70lb weight loss since 10/2024 - Per family, does not eat very much at home but does drink water throughout the day - Pca consulted for tube feeding evaluation; add trickle - Palliative consult Chronic anemia Suspect secondary to ESRD, baseline 10-11 per reports - Presented with Hgb 10.5 - No outward signs of bleeding - Trend CBC daily, expand w/u pending trajectory Hypothyroidism Per history - TSH/FT4 pending - Continue levothyroxine DMII Historical - Home meds: farxiga - Hgb A1c 6.6 on admission - SSI +/- basal for BG goal <180 HTN Historical - Home meds: carvedilol, imdur - Afterload plan outlined above HLD Historical - Home meds: ASA, atorvastatin - Continue home ASA and statin Morbid obesity Historical - Lifestyle modifications Incidental Findings: NA Critical Care Checklist : updated 07/02/25 SBT: Fail due to apnea SAT: Fail due to weakness, AMS,RASS Goal -1 to +1 Order updated yes, Current Propofol infusion, fentanyl PRN Delirium: CAM-ICU positive (delirium) HOBBER consulted yes/no: yes Restraints: N/A Bowel Regimen: Senna-Docusate and Last BM 07/02 Prophylaxis: DVT: Heparin infusion, (A Fib) , GI: Pepcid, (PPX due to ventilator) , Vent Dental/Oral Hygiene Lines/Tubes: Left femoral HD line (placed 06/30) No tubes Antibiotics: Ceftaroline, Daptomycin, Indication (MRSA bacteremia), and End Date (TBD) Mobility goal: PT/OT consult Nutrition: Dietitian consulted Blood Glucose: Sliding scale insulin Sleep Hygiene: PRN Melatonin Code Status: Full Code Family Update: Spouse updated via phone call Plan discussed with Subjective and Review of Systems: Misael seen and examined this morning in follow up. She is following commands and ready for extubation. [] All other systems were reviewed and negative except for those as specified in History of Present illness. [x] Unable to obtain history or ROS secondary to clinical circumstances Physical Exam: PHYSICAL EXAM: General appearance: overweight and chronically ill appearing Head: atraumatic, normocepahlic Mouth: mucous membranes moist, pharynx normal without lesions Eyes/Pupils: pupils equal and reactive, extraocular eye movements intact Neck: supple, no significant adenopathy Chest: clear to auscultation, no wheezes, rales or rhonchi, symmetric air entry CV: normal rate, regular rhythm, normal S1, S2, no murmurs, rubs, clicks or gallops Abdomen: soft, non-tender, without masses or organomegaly Extremities: peripheral pulses normal, no pedal edema, no clubbing or cyanosis Skin: normal coloration and turgor, no rashes, no suspicious skin lesions noted Neurological:Following commands 07/02/25 1044 Ventilator Trial / SBT SBT End Time 1044 Challenge Length (Hrs) 2.5 Hours Trial Stopped Planned Stop SBT Status Passed Criteria Met Extubate To Nasal Cannula Extubation Order Extubated per Physician order NEPHROLOGY PROGRESS NOTE [facility] Patient Name: Misael Medina MR#: [id number] : 1950 Admit Date: [id number] Physicians: Donal Will MD (Family); Saeed Zelaya MD (Referring) Attending: Erum Diego MD Reason for Consultation/History of Present Illness Patient is a 75yo female with history of JOSUE on CKD III secondary to ATN requiring HD, HFrEF, HTN, Type II DM, hypothyroidism, and morbid obesity. She initially presented to [facility] on 06/25/25 after a mechanical fall with LOC. Her course was complicated by acute respiratory failure requiring intubation (06/25) and MRSA bacteremia requiring perm cath removal for line holiday, and bradycardia. She was transferred to [facility] 06/28/25 for further management We are asked to manage dialysis. Assessment and Plan: 1) JOSUE on CKD III-->likely now ESRD -Started HD in March 2025 -Bx proven ATN (unclear circumstances) -TTS at [facility] with Dr. Carolyn Little chest perm cath removed [facility] (06/26) d/t MRSA bacteremia - patient seen and examined on CVVH, tolerating without complications. 4k/2.5ca replacement fluid at 2800 cc per hour. Effluent dose 20 cc per kg per hour. Net+100 cc per hour. On heparin drip for systemic anticoagulation - discussed with nursing, for as long as patient remains on CRRT can increase UF as tolerated but when filter clots or CRRT otherwise stopped we can leave off and transition back to conventional HD - we can change postfilter solution to phoxillum givenlow phos 2) Acute hypoxemic respiratory failure -Intubated at OSH [facility] - fluid removal with CRRT, patient has been extubated since I saw her this morning 3) MRSA bacteremia -Blood cx positive at OSH; thought secondary to perm cath (now removed); repeat cx positive x2 06/29 -ID following; on daptomycin and ceftaroline - will need clearance of bacteremia prior to permcath placement 4) Anemia of CKD - hemoglobin >10, holding SHANTI Following Discussed with patients nurse at bedside Can leave off CRRT when filter clots or otherwise stopped and we can assess transition back to conventional HD Tamir Vernon MD [facility] Cell phone in [facility] directory for staff use only [phone] office/answering service After hours (5p-7a weekdays and all day on weekends) please contact the answering service to be directed to the on-call provider Subjective Patient seen and examined on CRRT, in CCU. Patient on vent, not on pressors. Discussed with nursing at bedside, no issues with CRRT. Tolerating net+100 cc per hour and hemodynamically stable. Hopeful for extubation today (and since I saw patient this morning she has been extubated). Discussed with patients nurse than when filter clots we can leave off CRRT and assess transition back to conventional HD. The decision to put on CRRT was because last conventional HD treatment was not well tolerated and could not achieve much fluid removal Objective Vitals: BP 106/74 Pulse 88 Temp (!) 96.3 F (35.7 C) (Esophageal) Resp 14 Ht 5' Wt 100.3 kg (221 lb 1.9 oz) SpO2 97% BMI 43.18 kg/m Intake/Output last 3 shifts: Intake/Output Summary (Last 24 hours) at 07/02/2025 1153 Last data filed at 07/02/2025 1100 Gross per 24 hour Intake 1758.81 ml Output 3470 ml Net -1711.19 ml I/O last 3 completed shifts: In: 2079.1 [I.V.:739.1; Other:300; NG/GT:160; IV Piggyback:500] Out: 4037 [Emesis/NG output:100; Other:1300] Wt Readings from Last 3 Encounters: 07/02/25 100.3 kg (221 lb 1.9 oz) 05/31/17 122 kg (269 lb) Physical Examination: General: elderly female, ill appearing but in no acute distress, on vent Neuro: sedated on vent Cardiac: Regular rate Pulmonary: FiO2 40% on vent, equal chest wall expansion Abdominal: Obese, soft Skin: no jaundice or malar rash Extremities: trace leg edema Access: left femoral temp HD line Results/Medications Reviewed: 07/02/25 11:53 AM: Laboratory, Microbiology, Pathology, Radiology, Cardiology, Medications and Transcriptions Scheduled Meds: atorvastatin 10 mg Tube Nightly ceftaroline (TEFLARO) IVPB 400 mg Intravenous Q8H DAPTOmycin (CUBICIN) IV 10 mg/kg (Adjusted) Intravenous Q24H famotidine 20 mg Tube Nightly insulin lispro 0-30 Units Subcutaneous Q4H YOLI levothyroxine 112 mcg Tube Daily melatonin 5 mg Tube Nightly potassium, sodium phosphates 1 packet Tube Q6H QUEtiapine 25 mg Tube Nightly senna-docusate 1 tablet Tube BID sodium chloride (PF) 10 mL Intracatheter Q8H YOLI sodium chloride (PF) 5 mL Intravenous Q8H YOLI Continuous Infusions: crrt BGK 4/2.5 with calcium (PRISMASATE) heparin infusion (weight based dosing) 10 Units/kg/hr (07/02/25 1100) heparin norEPINEPHrine (LEVOPHED) infusion Stopped (07/02/25 0810) And VASOpressin (SHOCK/SEPSIS) infusion Laboratory: Results from last 7 days Lab Units 07/02/25 0446 07/01/25 0423 06/30/25 0335 WBC K/mcL 14.39* 13.61* 11.90* HGB g/dL 10.8* 10.8* 11.6* HCT % 34.2* 34.3* 37.4 PLT K/mcL 151 124* 141* Results from last 7 days Lab Units 07/02/25 0922 07/02/25 0446 07/02/25 0008 SODIUM mmol/L 138 138 139 POTASSIUM mmol/L 4.5 4.4 4.4 CHLORIDE mmol/L 101 102 102 BICARB mmol/L 24 24 23 BUN mg/dL 24 28* 32* CREATININE mg/dL 2.21* 2.37* 2.72* EGFR mL/min/1.73 m2 23* 21* 18* GLUCOSE mg/dL 140* 136* 116* CALCIUM mg/dL 8.7 8.6 8.1* PHOSPHORUS mg/dL 2.4* 2.5* 2.8 Palliative Medicine Social Work Brief Assessment LI Neumann, CHUCKY [facility] Palliative [facility] at [facility] Assessment Misael Medina is a 75 year old female who presented to [facility] on 06/28/2025 as a transfer from an outlying hospital for management of cardiogenic and septic shock. Palliative medicine team consulted on hospital day 4 for assistance with goals of care discussions. Recommendations & Follow Up Recommend daily updates with Heather tang and Jonny ABREU. Collaborated with [facility]. Palliative medicine team will continue to follow with plan to reach out to Jonny during daily rounding Wednesday, 07/03. Assessment Completed Using Information Provided By: Family Medical Record/Chart Advance Directives: Healthcare Power of Holistic Specialist: no -On file: no -Completed most recently on: N/A -If no Advance directives, Legal Next of Kin: Jonny Medina/spouse ([phone]) Living Will: no -Completed most recently on: N/A Code Status: FULL; code status not reviewed during today's initial care conference. Palliative Considerations 1. Previous experience with palliative care: No 2. How does patient/support system prefer to have information shared: Auditory -Details: Jonny states he is available for updates via phone. He plans to visit Ed at [facility] either tomorrow or Wednesday, pending availability of his son to drive him. 3. Patient perception of illness: Not able to assess with Ed at time of encounter; intubated in MICU. 4. Support system perception of illness: Jonny displays insight into Ed' current clinical situation, engaging in teach back surrounding the events of the last several days to week, as well as providing insight into her decline at home prior to initial hospitalization. 5. What are the main concerns from the patient or support system?: Jonny notes understanding that Ed is not out of the koroma and plans to visit this week for further conversations surrounding next steps in her care. 6. Psychosocial goals for life: Disease-directed at this time Interventions & Topics Discussed Reflective listening Identified supports Normalization and Emotional Validation Identifying next of kin Discussion about Advance Care Planning/Directives Details from Interaction: This palliative social science teacher and Dr. Clarita Aguilar met briefly at Ed/pt's bedside. She is intubated, unable to participate in bedside conversation. No family or loved ones present at time of encounter. Outside of room, placed call to Jonny ([phone]). Introduced selves and role of palliative medicine service within the hospital. Jonny provides a detailed overview of dE' medical history over the course of the last several months, noting a decline starting between and Yared of last year. Ed has had multiple hospitalizations as well as skilled therapy placements. Ed historically lives at home with Jonny, with Jonny sharing she has tried to maintain a sense of independence, often needing to use her rollator to ambulate through the home. He does note she has lost a lot of strength. Encouraged Jonny to continue having ongoing conversations with the different care teams caring for Ed at [facility]. He notes likelihood of visiting her either tomorrow or Wednesday, pending availability of their sons to drive him. Ed and Jonny have two sons, Faustino and Yemi. Provided active listening and support throughout encounter. Jonny endorses concern that we thought we were going to lose her as well as endorses understanding that she's not out of the koroma yet. Jonny is open to the ongoing support of the palliative medicine interdisciplinary team. Palliative medicine team will follow. CHUCKY Neumann [facility] Palliative Medicine Office # [phone] INFECTIOUS DISEASES DAILY PROGRESS NOTE Patient Name: Misael Medina MR #: [id number] Date of Service: 07/02/2025 Impression/Recommendations: 1) MRSA bacteremia 2) shock 3) ESRD/CKD recently on HD 4) h/o aortic stenosis 5) SVC thrombus 6) infected dialysis catheter 7) DM2 Patient with persistent MRSA bacteremia 06/25-06/27 per OSH records, HD catheter removed 06/26 with purulence at site. Ongoing instability requiring transfer. - currently on IV vancomycin dosed per pharmacy. As slow to clear and with critical illness, will change to daptomycin plus ceftaroline per pharmacy. CPK and LFTs added. - blood cx 06/27 positive. Blood cx 06/29 positive, blood cx 07/02 ordered - pt had HD catheter removed 06/26, there is still infected-looking fluid coming from site. No obvious abscess on CT chest. Improved today. - DESTIN 06/29 with SVC thrombus, no obvious other vegetation - she does have right femoral line placed while bacteremic, apparently difficulty placing upper line. Would favor removal if possible. Consider BUE/BLE dopplers to evaluate for clot. - nephrology following, CRRT initiated. Femoral temp HD catheter in place - monitor for joint/back pain; unknown if need for MRI spine. - some purulence of left toe. XR pending, consider podiatry evaluation if worsens. - further recommendations pending clinical course. Prognosis appears guarded. Palliative care team involved. Discussed with [facility]. Perpetual Assessment: Misael Medina is a 75 y.o. female on hospital day 4 with MRSA bacteremia. Subjective/Objective: Subjective: Patient was seen and examined in follow-up. She remains intubated, restless on PS trial. New left femoral trialysis catheter placed; right femora CVC remains. On CRRT. Review of Systems: The following system(s) were reviewed and negative. Pertinent positive and negative findings are noted in the HPI. [] Const [] Eyes [] ENT [] Resp [] CV [] GI [] [] Neuro [] Musc [] Skin [] Psych [] Endo [] Allergy [] Heme/Lymph [x] Unable to obtain due to clinical status Physical Examination: BP 106/74 Pulse 82 Temp (!) 96.3 F (35.7 C) (Esophageal) Resp 15 Ht 5' Wt 100.3 kg (221 lb 1.9 oz) SpO2 100% BMI 43.18 kg/m General: Ill appearing, intubated, restless HEENT: Head: NCAT. Eyes: conjunctiva and sclera clear. OP ETT Neck: Symmetrical Prior HD catheter site remains irritated, no drainage Respiratory: Diminished, scattered coarse Cardiovascular: Distant S1S2 Abdomen: Soft; obese, nontender, nondistended Extremities: + edema Musculoskeletal: Left toe with loose skin, some purulence underneath Skin: No diffuse rash, pale : Jimenez Lines: Femoral CVC, HD catheter Laboratory and Additional Data Reviewed: Laboratory 07/02/25 8:28 AM Microbiology 07/02/25 8:28 AM Pathology 07/02/25 8:28 AM Radiology 07/02/25 8:28 AM Cardiology 07/02/25 8:28 AM Medications 07/02/25 8:28 AM Transcriptions 07/02/25 8:28 AM Current medications: atorvastatin 10 mg Tube Nightly famotidine 20 mg Tube Nightly insulin lispro 0-30 Units Subcutaneous Q4H YOLI levothyroxine 112 mcg Tube Daily melatonin 5 mg Tube Nightly potassium, sodium phosphates 1 packet Tube Q6H QUEtiapine 25 mg Tube Nightly senna-docusate 1 tablet Tube BID sodium chloride (PF) 10 mL Intracatheter Q8H YOLI sodium chloride (PF) 5 mL Intravenous Q8H YOLI vancomycin per pharmacy 1 each Intravenous as indicated by pharmacokinetics Results from last 7 days Lab Units 07/02/25 0446 07/01/25 0423 06/30/25 0335 WBC K/mcL 14.39* 13.61* 11.90* HGB g/dL 10.8* 10.8* 11.6* HCT % 34.2* 34.3* 37.4 PLT K/mcL 151 124* 141* Results from last 7 days Lab Units 07/02/25 0446 07/02/25 0008 07/01/25 1734 SODIUM mmol/L 138 139 141 POTASSIUM mmol/L 4.4 4.4 4.2 CHLORIDE mmol/L 102 102 103 BUN mg/dL 28* 32* 41* CREATININE mg/dL 2.37* 2.72* 3.63* GLUCOSE mg/dL 136* 116* 105* CALCIUM mg/dL 8.6 8.1* 8.3* Comments: WBC 14.39, Cr 2.37 LFTs reviewed Jane micro lab: Blood cx 06/25 MRSA Blood cx 06/26 MRSA Blood cx 06/27 (from central line) MRSA Cath tip 06/26 staph aureus (presumed MRSA) Pleural fluid 06/28 NGTD Sputum cx 06/25 normal nadia Urine cx 06/25 yeast (not albicans) and GNB Wound cx 03/19/25 (unknown source) staph epi, MRSA, E faecalis, corynebacterium. Wound cx 03/16/25 (unknown source) E casseliflavus, E avium, GPR Blood cx [facility] 06/29 2 of 2 MRSA, vancomycin DELIA 1.0 CTPA, A/P report [place] reviewed TTE report reviewed DESTIN 06/29: 1. Left ventricular systolic function is severely reduced, with ejection fraction estimated at 20 +/- 5%. 2. Right ventricular systolic function is moderate to severely reduced. 3. There is no thrombus visualized in the left atrial appendage. 4. There is mild to moderate aortic valve stenosis with valve area of 1.5 cm2. 5. There is moderate mitral valve regurgitation. 6. There is no pericardial effusion. 7. A 0.5 x 2.7 cm, mobile mass appears to be attached to the wall of the SVC approximately 2 cm from the right atrial interface. This finding is consistent with thrombus. Associated infection cannot be excluded. CT CAP 06/30: 1. Appropriately positioned ETT and gastric tube. 2. Cardiomegaly, pulmonary edema and bilateral pleural effusions suggesting decompensated CHF. 3. Heavy three-vessel coronary artery calcifications. 4. Complete atelectasis of the bilateral lower lobes adjacent to the large effusions. 5. Common bile duct measuring 10 mm. This may represent reservoir effect related to patient's age and history of cholecystectomy. 6. Ascites in all 4 quadrants and anasarca in the body wall compatible with volume overload. CT head 06/30: 1. Evaluation is limited due to extensive streaking artifact from dental hardware as well as patient motion. Ill-defined hypodensities throughout the bilateral cerebellar hemispheres are nonspecific and could be artifactual. Consider MRI brain if clinically warranted. 2. No gross intracranial hemorrhage. Assessment Detail: The total time spent for this visit was 50 minutes. Greater than 50% of the time was spent in counseling and coordination of care regarding MRSA bacteremia, SVC thrombus. Toño Stewart MD [facility] - Infectious Diseases Office/answering service [phone] 07/02/2025 8:28 AM 07/02/25 0806 SBT Safety Screen Daily Screen Completed Y FiO2 Greater than 60% and SpO2 Less than 90% 0 PEEP Greater than 8cmH2O 0 Minute Ventilation Greater than 15 L/min 0 HR Greater than 150 BPM 0 SBP Less than 90 or Greater than 200 0 Dopamine Greater than 5 mcg/kg/min 0 Norepinephrine Greater than 30 mcg/min 0 Phenylephrine Greater than 100 mcg/min 0 Is the Patient Unarousable? 0 No Spontaneous Breathing? 0 Evidence of Increased ICP? 0 Temperature Greater than 102 F 0 SBT SAFETY SCORE 0 SBT Safety Screen Score = 0 (Zero) Yes (PASS) Ventilator Trial / SBT SBT Start Time 0806 Vent Mode PS/CPAP FI02 Set 40 % PSV Set 7 cmH20 SBT Status Initiated 07/01/25 0908 Ventilator Trial / SBT SBT Start Time 0817 SBT End Time 0908 Challenge Length (Hrs) 1 Hours Vent Mode PS/CPAP FI02 Set 40 % PSV Set 7 cmH20 SBT Status Failed (HR/BP increase greater than 20%) Post Wean Pulm Assess (increase WOB) Return to AC Progress Note Patient Name:Misael Medina :1950 Perpetual Assessment: Misael Medina is a 75 y.o. female with a past medical history of HFrEF, ESRD, DMII, HTN, HLD, morbid obesity who initially presented to [facility] on 06/25/25 after suffering a mechanical fall with LOC. Her course was complicated by respiratory failure requiring intubation on 06/25/25, MRSA bacteremia requiring HD line removal, and symptomatic bradycardia. She was transferred to [facility] CICU for management of cardiogenic and septic shock. Resume iHD 06/30. Transition to [facility] 07/01 for ongoing fluid removal. Assessment and Plan: Acute hypoxic respiratory failure Multifactorial, secondary to shock, effusion, edema - CXR at [facility] with pulmonary edema, no focal infiltrates, right pleural effusion - Mixed acidosis on admission to [facility] - CXR (06/29) pulmonary edema with bilateral effusions - Not currently requiring sedation, maintain RASS -1 to 1 - Titrate ventilator for SpO2 >88%, SAT/SBT as able - Failed SBT 06/30 with periods of apnea Cardiogenic Shock Acute on chronic HFrEF Unclear etiology - Previous EF reportedly 35% in Nov 2024, now down to 20% per TTE 06/25 with moderately dilated RV - DESTIN (06/29) EF 25%, moderate and MR, 0.2 x 2.7cm mobile mass attached to the SVC wall (approx 2cm from RA) - Home medications: carvedilol, imdur, hydralazine, isordil, furosemide dapagliflozin propanediol - holding all in acute setting - Weaning off Dobutamine 06/30; If HD stable this evening, will dc Sepsis, Resolved Shock MRSA Bacteremia 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) Blood cultures positive at [facility] 06/25, secondary to recently placed permacath - since removed - Previously required vasopressor support and had elevated lactate at [facility] - Lactate normal on admission to [facility] - Permacath removal 06/26 per [facility] - Thoracentesis appears transudative, follow up [facility] cultures - Sputum culture from [facility] appears negative - Urine culture negative at [facility] - Repeat blood cultures sent 06/29 with 1/2 +MRSA - Continue vancomycin - DESTIN as above - CTA CAP (06/30) no nidus for infection; nodular appearance to liver, concerning for cirrhosis. Ascites and anasarca. BLL atelectasis and bilateral pleural effusions. - ID consult; appreciate assistance Sinus Bradycardia Reports of Afib at [facility] Unclear etiology - Hold home carvedilol - Started on isuprel at [facility], since discontinued - Changed to dobutamine on arrival to [facility] - Stable blood pressure with HR 40-50's SVC thrombus Suspect vegetation in the setting of MRSA bacteremia - Reports of SVC thrombus noted on DESTIN, awaiting imaging/reads - Continue heparin gtt - DESTIN (06/29) EF 25%, moderate and MR, 0.2 x 2.7cm mobile mass attached to the SVC wall (approx 2cm from RA) - Continue vancomycin Right Pleural effusion Suspect secondary to acute HFrEF, volume overload - S/p thoracentesis with 850ml fluid removed - Appears exudative - Follow fluid studies from [facility] Syncopal Event Mechanical Fall with +LOC Reportedly has fallen three different times in the past week - CTH (06/30) hypodensities bilateral cerebellar hemispheres - Cervical spine at [facility] nonacute - Can consider MRI brain when patient is more hemodynamically stable - No abnormal bruising or deformities noted - Supportive care Acute Encephalopathy Secondary to shock state, sedatives, infection, recent fall - CTH (06/30) hypodensities bilateral cerebellar hemispheres - Wean sedation as able - Following commands throughout on exam - Treatment of infection as above ESRD Historical since March 2025, with dialysis T/R/Sat - Right permacath removed 06/26 per [facility] - Creatine 6.51 on admission, electrolytes stable - Nephrology consult for iHD; non emergent but will need in coming days - HD line placed to left femoral vein in the setting of SVC thrombus/mobile mass - Tolerated iHD 06/29, however will transition to [facility] for continuous fluid removal Aortic Valve Stenosis Per history - Monitor volume status closely - Avoid over-diuresis/aggressive volume removal with HD Unplanned Weight Loss Failure to Thrive 70lb weight loss since 10/2024 - Per family, does not eat very much at home but does drink water throughout the day - Pca consulted for tube feeding evaluation; add trickle - Palliative consult Chronic anemia Suspect secondary to ESRD, baseline 10-11 per reports - Presented with Hgb 10.5 - No outward signs of bleeding - Trend CBC daily, expand w/u pending trajectory Hypothyroidism Per history - TSH/FT4 pending - Continue levothyroxine DMII Historical - Home meds: farxiga - Hgb A1c 6.6 on admission - SSI +/- basal for BG goal <180 HTN Historical - Home meds: carvedilol, imdur - Afterload plan outlined above HLD Historical - Home meds: ASA, atorvastatin - Continue home ASA and statin Morbid obesity Historical - Lifestyle modifications Incidental Findings: NA Critical Care Checklist : updated 07/01/25 SBT: Fail due to apnea SAT: Fail due to weakness, AMS,RASS Goal -1 to +1 Order updated yes, Current Propofol infusion, fentanyl PRN Delirium: CAM-ICU positive (delirium) HOBBER consulted yes/no: yes Restraints: Yes, to promote healing and minimize disruption of treatment and Order updated Bowel Regimen: Senna-Docusate and Last BM 06/30 Prophylaxis: DVT: Heparin infusion, (A Fib) , GI: Pepcid, (PPX due to ventilator) , Vent Dental/Oral Hygiene Lines/Tubes: R IJ CVC (placed 06/28), Left femoral HD line (placed 06/30) OG Antibiotics: Vancomycin, Indication (MRSA bacteremia), and End Date (TBD) Mobility goal: PT/OT consult Nutrition: Dietitian consulted Blood Glucose: Sliding scale insulin Sleep Hygiene: PRN Melatonin Code Status: Full Code Family Update: Spouse and son updated at bedside The patient has been evaluated by the medical team. During this time, Misael Medina was observed exhibiting the following behaviors pulling at lines, pulling at tubes, and attempting to remove medical monitoring equipment. I have assessed the patient for possible contributing medical conditions and addressed them as appropriate. In addition, the medical team has attempted the less restrictive alternatives including frequent monitoring, reorientation, and PRN medications for comfort . Despite these endeavors, the patient poses a risk to her safety and I have decided to use physical restraints to minimize this risk. The medical team will continue to monitor the patient on an ongoing basis and remove these restraints as soon as it is determined to no longer be necessary. Plan discussed with Subjective and Review of Systems: Misael seen and examined this morning in follow up. Patient remains encephalopathic however following commands in all 4 extremities, and shakes head yes and no when asked questions. Misael continues to fail SBT due to agitation. Trial tube feeds today. [] All other systems were reviewed and negative except for those as specified in History of Present illness. [x] Unable to obtain history or ROS secondary to clinical circumstances Physical Exam: PHYSICAL EXAM: General appearance: chronically ill appearing Head: atraumatic, normocepahlic Mouth: mucous membranes moist, pharynx normal without lesions Eyes/Pupils: pupils equal and reactive, extraocular eye movements intact Neck: supple, no significant adenopathy Chest: Bilateral fine crackles to auscultation, no rales or rhonchi, symmetric air entry CV: NSR, normal S1, S2, no murmurs, rubs, clicks or gallops Abdomen: soft, non-tender, without masses or organomegaly Extremities: peripheral pulses normal, no pedal edema, no clubbing or cyanosis Skin: normal coloration and turgor, no rashes, no suspicious skin lesions noted Neurological: Intubated and sedated, weakly follows commands x4 extremities, no focal deficits PHARMACOTHERAPY NOTE: Antimicrobial Therapy Follow-up Assessment / Plan: Misael Medina is a 75 y.o. female on Vancomycin for bacteremia. This patient is being dosed intermittently or targeting trough goals due to need for renal replacement therapy. Vancomycin trough goal is 15-20 mcg/mL. Based on random serum concentration of 29.7 mcg/ml, will hold further vancomycin dosing for now. Pharmacy will continue to follow, monitor serum creatinine levels and urine output (if available) daily, order levels, and make adjustments as clinically appropriate. Please call pharmacy with questions. Other antimicrobial regimens: N/A Subjective/Objective: Ht Readings from Last 1 Encounters: 06/28/25 5' (152.4 cm) Wt Readings from Last 1 Encounters: 07/01/25 103.2 kg (227 lb 8.2 oz) [place] body weight: 45.5 kg (100 lb 4.9 oz) Adjusted ideal body weight: 68.6 kg (151 lb 3.1 oz) Labs include: Lab Results 07/01/25 0423 WBC 13.61* Lab Results 07/01/25 1141 Creatinine 4.75* Estimated Creatinine Clearance: 7.4 mL/min (A) (by C-G formula based on SCr of 4.75 mg/dL (H)). Patient Tmax (last 24 hours): 98.8 F Micro: - 06/29 blood cultures 2/2 MRSA Pharmacist: Don Meneses RPh,PharmD Contact Number: Vocera/31[place] Chat Attending Critical Care Note Interval History: Misael Medina's events from the last 12-24 hours reviewed. Failed SBT this am PHYSICAL EXAM: Vital signs reviewed in IHIS. I have seen and examined Misael Medina on 07/01/2025 Significant exam findings include: camicu +, rass -2, intubated, chronically ill appearing, heart RRR, lungs decreased BS bilaterally, anasarca DIAGNOSTIC RESULTS/PROCEDURES: I have reviewed the imaging and laboratory studies in [facility]IS. Significant findings include WBC 13 ASSESSMENT/PLAN: Misael Medina is a 75 y.o. female who is critically ill with the following active problems: Acute hypoxic respiratory failure which is likely MAC type factorial but largely secondary to sepsis from her bacteremia as well as some pleural effusions and pulmonary edema. MRSA bacteremia Severe sepsis secondary to above Sinus bradycardia Acute on chronic heart failure with reduced EF Biventricular heart failure Possible cardiogenic shock JOSUE on CKD with concerns for possible ESRD Tunneled site infection Exudative right pleural effusion status postthoracentesis at outside hospital SVC thrombus Unintentional weight loss prior to admission Cont vent support with LTVV, daily SAT/SBT. Mental status and pulm edema limiting evaluation for vent liberation. Cont antibiotics per ID, repeat cx in 48 -72 hours. CTA chest/abd/pelvis without additional nidus of infection Appreciate neph consult with plans for ongoing fluid removal - will plan for CRRT, Overall prognosis remains poor given severe sepsis and underlying comorbidities Please refer to the Critical Care SAYRA/resident note from the same day for further details. I spent 35 minutes in the intensive care unit providing critical care services to Ms. Medina today independent of procedures and other care providers. My time managing this critically ill patient included review of interval history, laboratories, radiology and consultation reports; performing a physical examination; discussing the patient with the multi-disciplinary team and managing life sustaining therapies to prevent imminent clinical deterioration, including mechanical ventilation . Giselle Payne MD, MSc [facility] Pulmonary Critical Care Physicians NEPHROLOGY PROGRESS NOTE [facility] Patient Name: Misael Medina MR#: [id number] : 1950 Admit Date: [id number] Physicians: Donal Will MD (Family); Saeed Zelaya MD (Referring) Attending: Giselle Payne MD Reason for Consultation/History of Present Illness Patient is a 75yo female with history of JOSUE on CKD III secondary to ATN requiring HD, HFrEF, HTN, Type II DM, hypothyroidism, and morbid obesity. She initially presented to [facility] on 06/25/25 after a mechanical fall with LOC. Her course was complicated by acute respiratory failure requiring intubation (06/25) and MRSA bacteremia requiring perm cath removal for line holiday, and bradycardia. She was transferred to [facility] 06/28/25 for further management We are asked to manage dialysis. Assessment and Plan: 1) JOSUE on CKD III-->likely now ESRD -Started HD in March 2025 -Bx proven ATN (unclear circumstances) -TTS at [facility] with Dr. Leon -R chest perm cath removed BLIND HOOKER (06/26) d/t MRSA bacteremia -Unclear last HD BLIND HOOKER -EDW 96.3kg; she is well above this -Appreciate ICU team's assistance with femoral temp line placement 06/30 -Had HD yesterday, only 1L UF d/t hypotension despite cold dialysate, NA modeling, albumin, dobutamine -Given volume overload and minimal UF with HD yesterday, will start CVVH today per discussion with ICU BACKUP OPERATOR. 4K/2.5, 2.8L total volume, BFR 200, 50/50 pre/post, net loss 100mL/hr as able, no AC 2) Acute hypoxemic respiratory failure -Intubated at OSH BLIND HOOKER -CXR on admissions with small bilateral effusions, mild vascular congestion -She does still make urine, so can resume home Lasix as BP allows; further volume removal with ELEVATOR CONSTRUCTOR -Further care per primary 3) MRSA bacteremia -Blood cx positive at OSH; thought secondary to perm cath (now removed); repeat cx positive x2 06/29 -ID following; on Vancomycin -DESTIN 06/29 with EF 20-25%, mod-severely reduced RV function, mild-mod , mod MR, no pericardial effusion, 0.5 x 2.7 cm mobile mass appears to be attached to the wall of the SVC 2cm from RA interface 4) Shock. improved -Components of septic and cardiogenic shock in setting of chronic HFrEF -Home antihypertensive medications on hold -On Isopril from OSH, previously on low dose Dobutamine -Abx as above 5) Secondary hyperparathyroidism -Does not appear that she was on a binder BLIND HOOKER -OK for calcium replacement per ERP 6) Anemia of CKD -Hgb at goal of 10-11, SHANTI not indicated -IV iron contraindicated in setting of bacteremia 7) Acute metabolic encephalopathy -In setting of infection/sedatives -CT head limited d/t dental hardware/motion degredation -Bacteremia tx as above -Sedation wean per ICU -Fluid removal with ELEVATOR CONSTRUCTOR 8) Hyponatremia, resolved -Resume Lasix as able -Adjusting UF/Na bath with HD 9) SVC thrombus -Noted on DESTIN as above -On heparin gtt 10) Metabolic acidosis, resolved -Should improve with HD Following Discussed with ICU BACKUP OPERATOR Will discuss with Dr. Vernon, who will be covering tomorrow as well Subjective Seen and examined in her room She remains intubated/sedated Off Dobutamine this AM Note limited UF with HD yesterday d/t hypotension Objective Vitals: BP 106/74 Pulse (!) 108 Temp 98.4 F (36.9 C) (Oral) Resp 12 Ht 5' Wt 103.2 kg (227 lb 8.2 oz) SpO2 93% BMI 44.43 kg/m Intake/Output last 3 shifts: Intake/Output Summary (Last 24 hours) at 07/01/2025 0606 Last data filed at 07/01/2025 0400 Gross per 24 hour Intake 822.6 ml Output 1400 ml Net -577.4 ml I/O last 3 completed shifts: In: 783.3 [I.V.:753.3; NG/GT:30] Out: 505 [Urine:80; Emesis/NG output:425] Wt Readings from Last 3 Encounters: 07/01/25 103.2 kg (227 lb 8.2 oz) 05/31/17 122 kg (269 lb) Physical Examination: General: Ill appearing elderly female. Intubated/sedated Neuro: No myoclonus. Cardiac: Regular rate, +murmur Pulmonary: Diminished bilaterally; unlabored on vent Abdominal: Obese, soft, non-tender, non-distended Skin: Warm/dry, no rashes/lesions Extremities: Minimal LE edema Access: None currently; dressing over former R chest perm cath site Results/Medications Reviewed: 07/01/25 6:06 AM: Laboratory, Microbiology, Pathology, Radiology, Cardiology, Medications and Transcriptions Scheduled Meds: atorvastatin 10 mg Oral Nightly famotidine (PEPCID) injection 20 mg Intravenous Q24H insulin lispro 0-30 Units Subcutaneous Q4H YOLI levothyroxine 112 mcg Oral Daily senna-docusate 1 tablet Oral BID sodium chloride (PF) 10 mL Intracatheter Q8H YOLI sodium chloride (PF) 5 mL Intravenous Q8H YOLI vancomycin per pharmacy 1 each Intravenous as indicated by pharmacokinetics Continuous Infusions: heparin infusion (weight based dosing) 10 Units/kg/hr (07/01/25 0536) heparin propofol 20 mcg/kg/min (07/01/25 0453) Laboratory: Results from last 7 days Lab Units 07/01/2542206/30/2533406/29/25217 WBC K/mcL 13.61* 11.90* 15.46* HGB g/dL 10.8* 11.6* 10.8* HCT % 34.3* 37.4 33.7* PLT K/mcL 124* 141* 159 Results from last 7 days Lab Units 07/01/2542206/30/255 06/29/258 SODIUM mmol/L 141 135 134* POTASSIUM mmol/L 4.3 4.5 4.6 CHLORIDE mmol/L 101 99 99 BICARB mmol/L 23 13* 20* BUN mg/dL 50* 90* 84* CREATININE mg/dL 4.32* 6.70* 6.37* EGFR mL/min/1.73 m2 10* 6* 6* GLUCOSE mg/dL 92 107* 195* CALCIUM mg/dL 8.4 8.1* 7.6* PHOSPHORUS mg/dL 4.2* 6.8* 7.1* Adrianne Mi PA-C [facility] Please use Secure Chat to contact (If I am not signed in, please contact the covering Stopper Maker) [phone] (office, after 5pm/weekends) 06/30/252037 Post-Hemodialysis Assessment Rinseback Volume (mL) 300 mL Total Liters Processed (L/min) 41.5 L/min Dialyzer Clearance Lightly streaked Duration of Treatment (minutes) 180 minutes Hemodialysis Fluid Given mL (Intake) 300 mL Hemodialysis Fluid Removed mL (Output) 1300 mL Patient Response to Treatment tx initiated with soft bp and hr 40's. floor rn adjusting sedation throughout tx. albumin given to support BP. HR and Bp improved last half of tx and pt more awake Post-Hemodialysis Comments Net 1L Treatment Status Completed Vital Signs Temp 97.8 F (36.6 C) Temp src Oral Heart Rate 73 Heart Rate Source Monitor Pulse 72 Resp 12 BP Location Other (Comment) (see A line) Patient Position Lying Hemodialysis Central Line Access Temporary catheter Left Femoral Placement Date/Time: 06/30/25 1500 Inserted by: Jose Tamayo NP Site Prep: Chlorhexidine Site Prep Agent has Completely Dried Before Drape Applied: Yes Local Anesthetic: Injectable Insertion Attempts: 1 Dialysis Catheter Type: Non-tunneled Access... Reassessment Unchd X Site Assessment Clean;Dry Arterial Line Status Deaccessed;Flushed;Patent Venous Line Status Deaccessed;Flushed;Patent Pigtail Line Status Capped Dressing Status Clean;Intact;Other (comment) (dated 06/30/25) Dressing Change Due 07/07/25 Line Intervention Flushed;Alcohol cap Verification by X-ray Yes Site Condition No complications Dressing CHG patch (chlorhexidine);Occlusive Progress Note Patient Name:Misael Medina :1950 Perpetual Assessment: Misael Medina is a 75 y.o. female with a past medical history of HFrEF, ESRD, DMII, HTN, HLD, morbid obesity who initially presented to [facility] on 06/25/25 after suffering a mechanical fall with LOC. Her course was complicated by respiratory failure requiring intubation on 06/25/25, MRSA bacteremia requiring HD line removal, and symptomatic bradycardia. She was transferred to [facility] CICU for management of cardiogenic and septic shock. Resume iHD 06/30. Assessment and Plan: Acute hypoxic respiratory failure Multifactorial, secondary to shock, effusion, edema - CXR at [facility] with pulmonary edema, no focal infiltrates, right pleural effusion - Mixed acidosis on admission to [facility] - CXR (06/29) pulmonary edema with bilateral effusions - Not currently requiring sedation, maintain RASS -1 to 1 - Titrate ventilator for SpO2 >88%, SAT/SBT as able - Failed SBT 06/30 with periods of apnea Cardiogenic Shock Acute on chronic HFrEF Unclear etiology - Previous EF reportedly 35% in Nov 2024, now down to 20% per TTE 06/25 with moderately dilated RV - Home medications: carvedilol, imdur, hydralazine, isordil, furosemide dapagliflozin propanediol - holding all in acute setting - Weaning off Dobutamine 06/30; If HD stable this evening, will dc Sepsis, Resolved Shock MRSA Bacteremia 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) Blood cultures positive at [facility] 06/25, secondary to recently placed permacath - since removed - Previously required vasopressor support and had elevated lactate at [facility] - Lactate normal on admission to [facility] - Permacath removal 06/26 per [facility] - Thoracentesis appears transudative, follow up [facility] cultures - Sputum culture from [facility] appears negative - Urine culture negative at [facility] - Repeat blood cultures sent 06/29 with 1/2 +MRSA - Continue vancomycin - DESTIN (06/29) EF 25%, moderate and MR, 0.2 x 2.7cm mobile mass attached to the SVC wall (approx 2cm from RA) - CTA CAP (06/30) no nidus for infection; nodular appearance to liver, concerning for cirrhosis. Ascites and anasarca. BLL atelectasis and bilateral pleural effusions. - ID consult; appreciate assistance Sinus Bradycardia Reports of Afib at [facility] Unclear etiology - Hold home carvedilol - Started on isuprel at [facility], since discontinued - Changed to dobutamine on arrival to [facility] - Stable blood pressure with HR 40-50's SVC thrombus Suspect vegetation in the setting of MRSA bacteremia - Reports of SVC thrombus noted on DESTIN, awaiting imaging/reads - Continue heparin gtt - DESTIN (06/29) EF 25%, moderate and MR, 0.2 x 2.7cm mobile mass attached to the SVC wall (approx 2cm from RA) - Continue vancomycin Right Pleural effusion Suspect secondary to acute HFrEF, volume overload - S/p thoracentesis with 850ml fluid removed - Appears exudative - Follow fluid studies from [facility] Syncopal Event Mechanical Fall with +LOC Reportedly has fallen three different times in the past week - CTH and cervical spine at [facility] nonacute - No abnormal bruising or deformities noted - Supportive care Acute Encephalopathy Secondary to shock state, sedatives, infection, recent fall - CT head at [facility] nonacute - Wean sedation as able - Following commands throughout on exam - Treatment of infection as above ESRD Historical since March 2025, with dialysis T/R/Sat - Right permacath removed 06/26 per [facility] - Creatine 6.51 on admission, electrolytes stable - Nephrology consult for iHD; non emergent but will need in coming days - HD line placed to left femoral vein in the setting of SVC thrombus/mobile mass Aortic Valve Stenosis Per history - Monitor volume status closely - Avoid over-diuresis/aggressive volume removal with HD Unplanned Weight Loss Failure to Thrive 70lb weight loss since 10/2024 - Per family, does not eat very much at home but does drink water throughout the day - Pca consulted for tube feeding evaluation - Palliative consult Chronic anemia Suspect secondary to ESRD, baseline 10-11 per reports - Presented with Hgb 10.5 - No outward signs of bleeding - Trend CBC daily, expand w/u pending trajectory Hypothyroidism Per history - TSH/FT4 pending - Continue levothyroxine DMII Historical - Home meds: farxiga - Hgb A1c 6.6 on admission - SSI +/- basal for BG goal <180 HTN Historical - Home meds: carvedilol, imdur - Afterload plan outlined above HLD Historical - Home meds: ASA, atorvastatin - Continue home ASA and statin Morbid obesity Historical - Lifestyle modifications Incidental Findings: NA Critical Care Checklist : updated 06/30/25 SBT: Fail due to apnea SAT: Fail due to weakness, AMS,RASS Goal -1 to +1 Order updated yes, Current Propofol infusion, fentanyl PRN Delirium: CAM-ICU positive (delirium) HOBBER consulted yes/no: yes Restraints: Yes, to promote healing and minimize disruption of treatment and Order updated Bowel Regimen: Senna-Docusate and Last BM 06/28 Prophylaxis: DVT: Heparin infusion, (A Fib) , GI: Pepcid, (PPX due to ventilator) , Vent Dental/Oral Hygiene Lines/Tubes: R IJ CVC (placed 06/28), Left femoral HD line (placed 06/30) OG Antibiotics: Vancomycin, Indication (MRSA bacteremia), and End Date (TBD) Mobility goal: PT/OT consult Nutrition: Dietitian consulted Blood Glucose: Sliding scale insulin Sleep Hygiene: PRN Melatonin Code Status: Full Code Family Update: Spouse and son updated at bedside The patient has been evaluated by the medical team. During this time, Misael Medina was observed exhibiting the following behaviors pulling at lines, pulling at tubes, and attempting to remove medical monitoring equipment. I have assessed the patient for possible contributing medical conditions and ad [facility] 07-20-2025 Note [facility] 07-19-2025 Note [facility] 07-19-2025 Consult note Formatting of th is note is different from the original. Speech Pathology Daily Note Dysphagia and Communication/Cognition Treatment Suspect swallow and cognitive-communication improved back to baseline. No ST f/u needed. Please re-consult with any new changes or concerns. Recommendations: NDD diet recommendation: Regular solids, Thin liquids Postures: Sit as upright as possible for all oral intake Food Presentation: Small bites Liquid Presentation: Small sips Medication Presentation: Per Patient Preference Amount of Supervision: Not required Treatment Techniques: No speech therapy for swallowing Further Recommendations: Oral care TID Skilled therapy needs: Skilled Therapy Needs: Are ST Skilled Therapy Services Needed After Discharge: No Speech Plan: Further acute Speech Therapy services indicated: No Factors for returning to Prior Level of Function: Factors for Returning to Prior Level of Function Body Structure and Function: Musculoskeletal impairment, Cardiopulmonary impairment Explain Impairments: HFrEF, ESRD, DMII, HTN, HLD, morbid obesity who initially presented to [facility] on 06/25/25 after suffering a mechanical fall with LOC. Her course was complicated by respiratory failure requiring intubation on 06/25/25, MRSA bacteremia requiring HD line removal, and symptomatic bradycardia. She was transferred to [facility] CICU for management of cardiogenic and septic shock. Activities and Participation: Swallowing limitation Explain Limitations: r/o dysphagia Environmental Factors: Home situation, Family/caregiver support Explain Environmental Factors: [facility], but initially at home Personal Factors: Awareness of own capacity and performance Explain Personal Factors: further assessment HOBBER Assessments HOBBER Assessments Subjective Impression: Alert, Cooperative Respiratory Status: Nasal cannula Dentition: Permanent Self-Feeding Barriers: Functional for self-feeding Patient Positioning: Upright in bed Secretion Management: Adequate Volitional Swallow: Present Impressions Severity Group Oral Severity Scale: WFL Pharyngeal Severity Scale: WFL Dysphagia Treatment Skilled Interventions and Response to Interventions: Swallowing Strategies Swallowing Strategies: Patient education/training Swallowing Strategies - Patient Education / Training: verbalized comprehension of presented information, improved ability to understand / adhere to precautions, return demonstration independently Oral Care Oral Care: Patient education/training Oral Care - Patient education/training: verbalized comprehension of presented information, improved ability to understand / adhere to precautions Risk of Aspiration Risk of Aspiration: Patient education/training Risk of Aspiration - Patient education/training: verbalized comprehension of presented information BSE/MBS/FEES BSE/MBS/FEES: Patient education/training BSE/MBS/FEES - Patient education/training: verbalized comprehension of presented information Therapeutic Trials Therapeutic Trials: Regular solids/NDD4, Thin liquids Therapeutic Trials - Regular solids/NDD4: effective/efficient mastication, adequate oral clearing, no overt s/sx penetration/aspiration Therapeutic Trials - Thin Liquids: no overt s/sx penetration/aspiration Communication/Cognitive Treatment Cognitive-Communication Status: Cognitive-Communication Status Cognitive Status: Baseline Auditory Comprehension: Auditory Comprehension Auditory Comp Impression-Severity Scale: WFL Expressive Language: Expressive Language Expressive Language Impression-Severity: WFL Motor Speech: Motor Speech Motor Speech Impression-Severity: WFL Cognitive-Communication: Cognitive-Communication Speech Cognition Impression-Severity: WNL Orientation Level: Oriented x4 Attention: Within Functional Limits Memory: Exceptions to WFL Immediate recall: No Impairment Delayed recall: 75-90% (Mild) Visual recall: 75-90% (Mild) Additional Observation: Recalls medical plan of care, Uses memory strategies Verbal Problem Solving: Within Functional Limits Organization: Within functional limits Patient O-Log (Orientation Log) Score - Cut off score 25 or better on two separate administrations: Orientation-Log Orientation-log: Yes City: [address]: 3 Name of Hospital: 3 Month: 3 Date: 3 Year: 3 Day of Week: 2 Clock Time: 3 Etiology / Event: 3 Pathology Deficits: 3 Orientation Log Total Score (out of 30): 29 Orientation Log Impression - HOBBER: Will continue the O-Log based on the score today. Patient Cog-Log (Cognitive Log) Score - Cut off score 25 or better: Cognitive-Log Cognitive-log: Yes Date: 3 Clock Time: 3 Name of Hospital: 3 Repeat Address: 3 20 to 1: 3 Months Reversed: 3 30 Seconds: 3 Fist Edge-Palm: 0 Go / No-Go: 3 Address Recall: 2 Cognitive Log Total Score (out of 30): 26 Cognitive Log Impression: Score suggests within functional limits attention/concentration and memory. Past Medical History: Diagnosis Date Arthritis Cataracts, bilateral Colon polyp 2011 Tubular adenoma Diabetes (HCC) Endometrial cancer (HCC) 08/2014 s/p Hysterectomy and External beam radiation as well as internal radiation, no chemo...[facility]COLOGIST: [facility] [place] (Dr. Ryan) Hyperlipidemia Hypertension Morbid obesity (HCC) Thyroid disease Past Surgical History: Procedure Laterality Date CHOLECYSTECTOMY 1997 COLONOSCOPY 06/02/2012 tubular adenoma removal...Dr. Funez COLONOSCOPY 06/16/2017 Normal....Dr. Funez CV IR INTERVENTIONAL RADIOLOGY N/A 07/11/2025 Procedure: VR Dialysis Cath Insert Tunnel; Surgeon: Amber Fisher PA-C; Location: [facility] IR LAB; Service: Interventional Radiology; Laterality: N/A; EAR PIERCINGS HYSTERECTOMY 08/2014 for Endometrial CA TEETH EXTRACTION TOTAL HIP ARTHROPLASTY Right For complete objective data, detailed plan of care, and education refer to: Speech Comm/Cog Eval, Speech Bedside Swallow Evaluation, and HOBBER Daily flowsheet, as well as patient Plan of Care and Education documentation. This note stands as the current Discharge Summary upon patient discharge from the hospital or completion of Speech Pathology Plan of Care Associated Order(s): IP CONSULT TO ORTHOPEDIC SURGERY CONSULT NOTE Patient Name: Misael Medina Admit Date: [id number] MR #: [id number] : 1950 Physicians: Donal Will MD (Family); Saeed Zelaya MD (Referring); Tyrell Rooney MD (Orthopedic Surgery) Assessment and Plan: Other Pain in hip 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 (HCC) Assessment & Plan 75 yo F s/p right ARMIDA approximately [address] Love ([place]), here for MRSA bacteremia and right hip pain for 1 month - D/w Dr. Powers - XR reviewed independently and negative for acute fracture or abnormality; hardware in satisfactory position - No plan for orthopedic intervention and overall low concern for infectious etiology of the hip although may consider advanced imaging - Will defer ordering of advanced imaging after discussion with Orthopedic attending - WBC 6.26, CRP 103 / ESR 52 on admission- repeat labs pend - Continue IV antibiotics for MRSA bacteremia per ID recommendations - WBAT RLE - Will follow and append plan as appropriate Chief Complaint/Reason for Visit: Right hip pain History of Present Illness: Misael Medina is a 75 y.o. female presenting from [facility] 06/28/2025 with c/o fall with +LOC, complicated by respiratory failure requiring intubation and MRSA bacteremia presumed from HD catheter of which has since been removed. Transferred to [facility] for septic and cardiogenic shock. Ortho consulted hospital day 14 for right hip pain. Patient ambulates with a walker at baseline and admits to antecedent hip pain. She underwent right ARMIDA approximately [address] Love in [place]. She states her hip pain began about a month ago when she started having increased dialysis needs and had to be seated for prolonged periods of time. She endorses a feeling of stiffness and generalized pain. Of note, an MRI lumbar was obtained and she was found to have L3-L4 discitis/osteomyelitis for which Neurosurgery is managing non-operatively. History: Past Medical History: Diagnosis Date Arthritis Cataracts, bilateral Colon polyp 2011 Tubular adenoma Diabetes (HCC) Endometrial cancer (HCC) 08/2014 s/p Hysterectomy and External beam radiation as well as internal radiation, no chemo...ONCOLOGIST: [facility] [place] (Dr. Ryan) Hyperlipidemia Hypertension Morbid obesity (HCC) Thyroid disease Past Surgical History: Procedure Laterality Date CHOLECYSTECTOMY 1997 COLONOSCOPY 06/02/2012 tubular adenoma removal...Dr. Funez COLONOSCOPY 06/16/2017 Normal....Dr. Funez EAR PIERCINGS HYSTERECTOMY 08/2014 for Endometrial CA TEETH EXTRACTION TOTAL HIP ARTHROPLASTY Right Family History Problem Relation Age of Onset Diabetes Mother Heart disease Mother Diabetes Father Heart attack Father Hypertension Father Heart disease Father Hyperlipidemia Father Diabetes Sister Social History [1] Allergy Information: I have reviewed the patient's allergies. Grass pollen Home Medications: Outpatient Medications as of 07/12/2025 Medication Sig acetaminophen (TYLENOL) 325 MG tablet Take 650 mg by mouth. amLODIPine (NORVASC) 10 MG tablet atorvastatin (LIPITOR) 10 MG tablet multivitamin (multivitamin) per tablet Take 1 tablet by mouth daily. Review of Systems: The following system(s) were reviewed and pertinent findings noted: Constitutional Musc Xray interpretation: Xray reviewed and interpreted by this provider and demonstrates no acute bony abnormality or hardware issue. Physical Examination: Vital Signs: BP 120/78 (BP Location: Right arm, Patient Position: Lying) Pulse 67 Temp 97.3 F (36.3 C) (Oral) Resp 18 Ht 5' Wt 86.8 kg (191 lb 5.8 oz) SpO2 95% BMI 37.37 kg/m Constitutional: no acute distress and alert/oriented x3 Cardiovascular: 2+ DP pulse with BCR to all toes to right lower extremity Neurological: SILT. SP/DP/S/S/T intact. EHL/FHL intact in right lower extremity Musculoskeletal: Able to wiggle all toes and dorsiplantarflex ankle. Jordan to right hip with logrolling, axial loading, pelvic rock, and ROM of hip. Generalized pain to right hip with extreme flexion. 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 Tobacco Use Smoking status: Never Substance and Sexual Activity Alcohol use: No Drug use: No Social Drivers of Health Food Insecurity: No Food Insecurity (07/07/2025) Hunger Vital Sign Worried About Running Out of Food in the Last Year: Never true Ran Out of Food in the Last Year: Never true Transportation Needs: No Transportation Needs (07/07/2025) PRAPARE - Transportation Lack of Transportation (Medical): No Lack of Transportation (Non-Medical): No Housing Stability: Low Risk (07/07/2025) Housing Stability Vital Sign Unable to Pay for Housing in the Last Year: No Number of Times Moved in the Last Year: 0 Homeless in the Last Year: No Cosigned by Tyrell Rooney MD at 07/13/2025 12:33 PM EDT Associated attestation - Tyrell Rooney MD - 07/13/2025 12:33 PM EDT Attending Provider Attestation The patient was evaluated in conjunction with the advanced practice provider and/or resident and I agree with the plan as stated in the consult, with the following additions/modifications. Admitted for bacteremia from lumbar discitis, also with right hip pain. Has a history of R ARMIDA at [facility] previously without issue. Exam and imaging of the right hip is nonacute. XR and CT right hip independently interpreted which shows stable ARMIDA without effusion or soft tissue fluid collection RLE pain likely related to lumbar discitis No indication for aspiration of the right hip Recommend continued medical management of discitis Can follow up as needed with her established surgeon outpatient Tyrell Rooney MD Orthopaedic Surgery and Sports Medicine Associated Order(s): IP CONSULT TO NEUROSURGERY Neurosurgery Inpatient Consult [facility] 07/08/2025 Lauren Ramirez [facility] Patient: Misael Medina Date of : 1950 (75 y.o.) Referring Provider: Refer to consult order in electronic medical record PCP: Donal Will MD ASSESSMENT/PLAN: L3-4 discitis osteomyelitis with associated epidural phlegmon -No motor or sensory deficits noted. -No neurosurgical intervention at this time. -Antibiotics per ID recommendations -Will review imaging with Dr. Cai SUBJECTIVE: Chief Complaint/Reason for Consult: L3-4 discitis osteomyelitis with associated epidural phlegmon Time of arrival to bedside: 0920 Informant(s): Patient, Care Team/Chart History of Present Illness: Misael Medina is a 75 y.o. female presented to [facility] on 06/25/25 after a fall with LOC. Her course was complicated by respiratory failure requiring intubation on 06/25/25, MRSA bacteremia requiring HD line removal, and symptomatic bradycardia. Patient transferred to [facility] 06/28/2025 for management of cardiogenic and septic shock. MRI Lumbar spine WITHOUT contrast was done for 2 week history of back pain, which shows likely developing discitis osteomyelitis at the L3-L4 level with associated epidural phlegmon. Dr. Cai consulted for neurosurgical evaluation. Review of Systems: All systems reviewed and negative except pertinent positives and negatives documented in the History of Present Illness (HPI). Past Medical History: has a past medical history of Arthritis, Cataracts, bilateral, Colon polyp (2011), Diabetes (HCC), Endometrial cancer (HCC) (08/2014), Hyperlipidemia, Hypertension, Morbid obesity (HCC), and Thyroid disease. Past Surgical History: has a past surgical history that includes Cholecystectomy (1997); Colonoscopy (06/02/2012); Hysterectomy (08/2014); EAR PIERCINGS; Teeth Extraction; Colonoscopy (06/16/2017); and Total hip arthroplasty (Right). Social History: reports that she has never smoked. She does not have any smokeless tobacco history on file. She reports that she does not drink alcohol and does not use drugs. Family History: family history includes Diabetes in her father, mother, and sister; Heart attack in her father; Heart disease in her father and mother; Hyperlipidemia in her father; Hypertension in her father. Allergies: is allergic to grass pollen. HOME Medications: Prior to Admission medications Medication Sig Start Date End Date Taking? Authorizing Provider acetaminophen (TYLENOL) 325 MG tablet Take 650 mg by mouth. Ezequiel Sanchez MD amLODIPine (NORVASC) 10 MG tablet 05/11/17 Ezequiel Sanchez MD atorvastatin (LIPITOR) 10 MG tablet 05/11/17 Ezequiel Sanchez MD carvediloL (COREG) 6.25 MG tablet Take 1 (one) tablet (6.25 mg total) by mouth 2 (two) times a day . Ezequiel Sanchez MD dapagliflozin propanediol (Farxiga) 10 mg tablet Take 1 (one) tablet (10 mg total) by mouth every morning . Ezequiel Sanchez MD ergocalciferol (ERGOCALCIFEROL) 1,250 mcg (50,000 unit) capsule Take 1 (one) capsule (50,000 Units total) by mouth once a week . Ezequiel Sanchez MD furosemide (LASIX) 40 MG tablet Take 1 (one) tablet (40 mg total) by mouth 2 (two) times a day . Ezequiel Sanchez MD hydrALAZINE (APRESOLINE) 25 MG tablet Take 1 (one) tablet (25 mg total) by mouth 3 (three) times a day . Ezequiel Sanchez MD ipratropium (ATROVENT) 42 mcg (0.06 %) nasal spray Instill 2 (two) sprays into each nostril 3 (three) times a day as needed for rhinitis . Ezequiel Sanchez MD isosorbide dinitrate (ISORDIL) 20 MG tablet Take 1 (one) tablet (20 mg total) by mouth 3 (three) times a day . Ezequiel Sanchez MD levothyroxine (Synthroid) 112 MCG tablet Take 1 (one) tablet (112 mcg total) by mouth once daily . Ezequiel Sanchez MD metFORMIN (GLUCOPHAGE) 500 MG tablet Take 1 (one) tablet (500 mg total) by mouth 2 (two) times a day with meals . Ezequiel Sanchez MD multivitamin (multivitamin) per tablet Take 1 tablet by mouth daily. Ezequiel Sanchez MD HOSPITAL Infusions: heparin infusion (weight based dosing) 14 Units/kg/hr (07/08/25 0800) heparin HOSPITAL Scheduled Medications: atorvastatin 10 mg Tube Nightly ceftaroline (TEFLARO) IVPB 200 mg Intravenous Q8H DAPTOmycin (CUBICIN) IV 10 mg/kg (Adjusted) Intravenous Q48H famotidine 20 mg Tube Nightly furosemide 40 mg Oral BID hydrALAZINE 10 mg Oral Q8H [facility] lispro insulin 0-15 Units Subcutaneous at bedtime insulin lispro 0-30 Units Subcutaneous TID AC levothyroxine 112 mcg Tube Daily lidocaine 2 patch Transdermal Daily melatonin 5 mg Tube Nightly mirtazapine 7.5 mg Oral Nightly QUEtiapine 25 mg Tube Nightly senna-docusate 1 tablet Tube BID sod phos di, mono-K phos mono 250 mg Oral 4x daily sodium chloride (PF) 10 mL Intracatheter Q8H [facility] sodium chloride (PF) 5 mL Intravenous Q8H [facility]PITAL PRN Medications: acetaminophen, bisacodyL, heparin, magic mouthwash oral suspension, nalOXone AND Notify physician AND naloxone, [COMPLETED] sodium chloride (PF) AND sodium chloride (PF), sodium chloride (PF), Saline lock IV AND sodium chloride (PF) AND sodium chloride (PF) AND sodium chloride 0.9 %, Insert peripheral IV AND Saline lock IV AND sodium chloride (PF) AND sodium chloride 0.9 %, sodium chloride 0.9%, sodium chloride 0.9 % OBJECTIVE: Physical Examination: BP 95/60 Pulse 78 Temp 97.6 F (36.4 C) (Oral) Resp 16 Ht 5' Wt 90.8 kg (200 lb 2.8 oz) SpO2 92% BMI 39.09 kg/m MTZ: DNFC: Does Not Follow Commands JUNG: Unable to Assess GENERAL: General Appearance: In NAD Neck: Supple Eyes: See pupils below Ears: See hearing below Respiratory Effort: Normal Extremities: No edema Skin: No rashes visualized MENTAL STATUS: Alertness, Attention Span & Concentration: Normal Language: Normal Speech: Normal Orientation: Normal Memory, Recent & Remote: Normal Fund of Knowledge: Normal CRANIAL NERVES: II - Visual Ye: Normal II, III - Pupils: PERRL III, IV, - Eye Movements: Normal (EOMI, no ptosis, no nystagmus) V - Facial Sensation: Normal VII - Face Symmetry and Strength: Normal VIII - Hearing: Normal IX, X - Palate: Normal XI - Shoulder Shrug: Normal XII - Tongue Protrusion: Normal COORDINATION & GROSS MOTOR: Abnormal Movements: None Coordination: Normal Tone: Normal MOTOR - MUSCLE STRENGTH: Right Muscle Strength Left 5 Shoulder Abduction (Deltoid) 5 5 Elbow Flexion (Biceps) 5 5 Elbow Extension (Triceps) 5 5 Food Products Sales Representative (Flexor Digitorum) 5 5 Finger Abduction (Interossei) 5 5 Hip Flexion (Iliopsoas) 5 5 Knee Extension (Quads) 5 5 Dorsiflexion (Anterior Tibialis) 5 5 Plantar Flexion (Gastrocnemius) 5 MOTOR MTZ: 5 Normal (Normal Power) 4 Mild Weakness (Movement against moderate resistance over a full range of motion) 3 Moderate Weakness (Movement against gravity over almost full range of motion) 2 Severe Weakness (Movement with gravity eliminated over almost full range of motion) 1 Trace Movement (flicker of contraction visible or palpable) 0 No Movement (No contraction visible or palpable) JUNG Unable to Assess REFLEXES: Deep tendon reflexes symmetric throughout SENSATION: Fine Touch: Normal DATA REVIEWED: Labs: Lab Results Component Value Date NA 140 07/08/2025 HGB 9.6 (L) 07/08/2025 WBC 9.96 07/08/2025 PLT 187 07/08/2025 BUN 24 07/08/2025 CREATININE 3.52 (H) 07/08/2025 Imaging: MRI Lumbar: IMPRESSION: 1. Likely developing discitis osteomyelitis at the L3-L4 level with associated epidural phlegmon extending superiorly and inferiorly from the disc space resulting in at least moderate spinal canal stenosis at this level. 2. No acute fracture. Likely chronic S1 superior endplate fracture. 3. Moderate to severe multilevel degenerative disc disease as described above. Cosigned by Madhu Cai MD at 07/09/2025 12:28 PM EDT Associated attestation - Madhu Cai MD - 07/09/2025 12:28 PM EDT I have seen and examined the patient independently. I have reviewed all relevant laboratory and imaging studies. I agree with the assessment below. Pt was seen on 07/08/25. 75 y.o. female who presents with complaints of back pain. At this time, she reports that her back pain has improved somewhat. She also does not endorse focal numbness, weakness, paresthesias, changes in voiding, or other complaints. On evaluation, she is awake and alert. She is extremely deconditioned and obese. She is able to provide some history. She has 5/5 strength in her BUE/BLE. Sensation is present to light touch throughout. There is not clonus. She has multiple areas of skin bruising in her feet/hands. Imaging: Please see SAYRA's note PMHX/FHX/ROS: Please see SAYRA's note IMPRESSION/PLAN: Ms. Medina presents for management of bacteremia and septic shock. She was found on MRI lumbar spine to have likely osteomyelitis/discitis at L3/4. She has only some mild axial back pain at this time, and does not endorse radicular symptoms or deficits at this time. Medical management with antibiotics is most appropriate at this time. Should her epidural disease progress and she develop lower extremity deficits, this could dictate decompression, but she is a very poor candidate for surgical intervention due to her multiple medical comorbidities and frailty. Please contact our service if we could be of further assistance. Madhu Cai MD Staff Neurosurgeon [facility] Associated Order(s): IP CONSULT TO CARE MANAGEMENT Date: 07/07/2025 Time: 3:16 PM Patient Name: Misael Medina Date of : 1950 Reason for Consult: Discharge Plan Discussion: SAFETY FIRE BOSS consulted for discharge needs. Per chart review, Palliative following for ongoing GOC discussion. SAFETY FIRE BOSS met with pt at bedside to discuss discharge planning. Pt lives in private residence with spouse. Pt's spouse will be primary caregiver upon discharge. SAFETY FIRE BOSS confirmed pt demographics including address on file, active PCP and insurance coverage. PT/OT/HOBBER recommendations of up to 5x per week. SAFETY FIRE BOSS to follow up regarding recommendations after GOC discussions. Will continue to follow. Discharge Plan: Ongoing (Pending GOC) Plan A: [facility] Facility Plan B: Home Health Care Services Transportation Transportation Type: Ambulance Assessment and Background Information: Family aware of the patient's advance care planning wishes:: Yes Medication adherence problem:: No History of falls in last 6 months:: No Do you have any cultural/spiritual connections or beliefs that would impact how we deliver your care?: No Advance Directives: Advance Directive: Patient has advance directive, copy not in chart Patient Support: Does Patient have a PCP?: Yes Living Arrangements: Spouse/significant other Type of Residence: Private residence Support Systems: Spouse/significant other, Children Assistance Needed: no Current Home Equipment: Rollator, Tub/Shower chair, Cane Associated Order(s): IP CONSULT TO HOSPITALIST [facility] Consult Note 07/05/25 Misael Medina 1950 [id number] Assessment/Plan: Misael Medina is a 75 y.o. female with a history of HFrEF, ESRD, DMII, HTN, HLD, morbid obesity who presented to [facility] on 06/25/25 after suffering a mechanical fall with LOC. Her course was complicated by respiratory failure requiring intubation on 06/25/25, MRSA bacteremia requiring HD line removal, and symptomatic bradycardia. Patient transferred to [facility] 06/28/2025 for management of cardiogenic and septic shock. Resume iHD 06/30. Transition to [facility] 07/01 for ongoing fluid removal. Extubated 07/02. [facility] consulted for medical management out of ICU. Multifactorial shock: multifactorial, but primarily distributive/septic shock from MRSA bacteremia, in patient with known heart failure. Required pressor support on admission. Dobutamine weaned off 07/01; vasopressors off 07/02. Treating bacteremia as below with concern for infected SVC thrombus. Monitor. MRSA Bacteremia: persistent MRSA bacteremia 06/25-06/27 per OSH records, HD catheter removed 06/26 with purulence at site. DESTIN 06/29 with SVC thrombus, no obvious other vegetation. Right femoral CVC removed 07/02. Blood cx 06/27 positive. Blood cx 06/29 positive, blood cx 07/02 2 of 2 MRSA. Blood cx 07/04 NGTD. Currently treating with Teflaro and Dapto. ID following. Fourth metatarsal wound: s/p XR L foot 07/02/25 with relatively large superficial subcutaneous wound involving the heel. Overlapping dressomg material about the midfoot and hindfoot are noted. There is soft tissue swelling with subcutaneous edematous changes about the distal calf, ankle and foot overall noted. ID following as above. Wound care. Consider podiatry evaluation if worsens Acute hypoxic respiratory failure: in setting of shock and volume overload. Requiring intubation 06/25/25. CXR (06/29) pulmonary edema with bilateral effusions. Extubated 07/03 to NC. Volume management with HD/Lasix. Acute on Chronic HFrEF: with baseline LVEF of 35%, down to 20% here in setting of stress/shock state. Holding all home GDMT given borderline blood pressures. Continued low-dose hydralazine and Lasix. ESRD: s/p CRRT, transitioning to iHD. Nephrology following. Acute metabolic encephalopathy: in the setting of above. CTH (06/30) hypodensities bilateral cerebellar hemispheres. Can consider MRI brain. SVC Thrombus: noted on DESTIN as above with 0.2 x 2.7cm mobile mass attached to the SVC wall. Heparin gtt in place. NIDDM2: per history. Held home oral regimen. SSI in place. Monitor. Anxiety/Depression: per history. Continue home Remeron and Seroquel. Code status: Full DVT Prophylaxis: heparin gtt Thank you for allowing us to participate in the care of your patient. For any questions, please call the number of the covering hospitalist listed under the treatment team in care [facility]. Medication Reconciliation: Reviewed using EMR Current living situation: Home Expected Disposition: TBD Estimated discharge date: TBD Medically Ready for Discharge: No ___ Chief Complaint / Reason for Consult: Medical management out of ICU History of Present Illness: Patient new to me therefore previous labs, imaging, vitals, and notes reviewed. Patient was seen and examined at bedside. Patient states that she is doing okay. States that she does not have any active concerns or pain. She is not very conversational but did not look to be in any acute distress. She denied any further concerns and was in agreement plan at this time. Patient's admitted inpatient for care. Patient on IV heparin which is high risk and requires close monitoring. ROS: 10 systems were reviewed and negative, except as noted above. Past Medical, Surgical, Social, Family History: Past Medical History: Diagnosis Date Arthritis Cataracts, bilateral Colon polyp 2011 Tubular adenoma Diabetes (HCC) Endometrial cancer (HCC) 08/2014 s/p Hysterectomy and External beam radiation as well as internal radiation, no chemo...[facility]COLOGIST: [facility] [place] (Dr. Ryan) Hyperlipidemia Hypertension Morbid obesity (HCC) Thyroid disease Past Surgical History: Procedure Laterality Date CHOLECYSTECTOMY 1997 COLONOSCOPY 06/02/2012 tubular adenoma removal...Dr. Funez COLONOSCOPY 06/16/2017 Normal....Dr. Funez EAR PIERCINGS HYSTERECTOMY 08/2014 for Endometrial CA TEETH EXTRACTION Social History [1] Family History Problem Relation Age of Onset Diabetes Mother Heart disease Mother Diabetes Father Heart attack Father Hypertension Father Heart disease Father Hyperlipidemia Father Diabetes Sister Current Medications: Medication list reviewed with patient. Please see MAR for full details. Physical Exam: BP 139/78 (BP Location: Left arm, Patient Position: Lying) Pulse 82 Temp 97.8 F (36.6 C) (Axillary) Resp 18 Ht 5' Wt 93.5 kg (206 lb 2.1 oz) SpO2 100% BMI 40.26 kg/m General: NAD Eyes: EOMI, sclera clear ENT: neck supple Cardiovascular: Regular rate, no murmur Respiratory: Clear to auscultation, symmetric air entry Gastrointestinal: Soft, non tender, non distended, positive bowel sounds Genitourinary: no CVA tenderness Musculoskeletal: no major joint deformity, left femoral HD line in place Skin: warm, dry, no LE edema Neuro: Alert, oriented Psych: Mood appropriate Labs, Imaging, and Studies reviewed: Results from last 7 days Lab Units 07/04/25 0331 07/03/25 0416 07/02/25 0446 WBC K/mcL 17.64* 16.32* 14.39* HGB g/dL 11.2* 10.8* 10.8* HCT % 35.3* 34.8* 34.2* PLT K/mcL 239 151 151 Results from last 7 days Lab Units 07/04/25 0331 07/03/25 1122 07/03/25 0545 SODIUM mmol/L 136 136 134* POTASSIUM mmol/L 4.5 4.3 3.8 CHLORIDE mmol/L 101 102 101 BICARB mmol/L 17* 20* 20* BUN mg/dL 16 13 14 CREATININE mg/dL 2.10* 1.29* 1.25* EGFR mL/min/1.73 m2 24* 43* 45* GLUCOSE mg/dL 112* 92 105* CALCIUM mg/dL 8.8 8.0* 8.7 PHOSPHORUS mg/dL 3.6 2.8 2.6* Results from last 7 days Lab Units 07/02/25 0922 06/28/25 1847 ALT U/L 30 45* AST U/L 27 34 ALK PHOS U/L 149 144 BILIRUBIN TOTAL mg/dL 0.7 0.5 [1] Social History Socioeconomic History Marital status: Occupational History 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 After discussing the case with HEATHER Steven PA-C, I performed the substantive part of the medical decision making for this encounter and approved the SAYRA's plan of care with the following additions: Patient with pmhx of HFrEF (prior LVEF 35%), HTN, ESRD on HD, T2DM, hypothyroid and obesity who presented to [facility] on 06[facility]25[facility]25 s/p fall course c/b Resp failure requiring intubation, MRSA bacteremia w/ HD line removal and symptomatic bradycardia and was transferred to [facility] 06/28/25 for higher level of care for mgmt of cardiogenic/septic shock. Workup significant for multifactorial shock, noted to have +MRSA on blood cultures from 06/27, 06/29 and 07/02 --but thus far 07/04/25 w/ NGTD. Thus far course timeline has involved HD cath removed 06/26/25 w/ noted purulence. DESTIN 06/29/25 with SVC thrombus, noted LVEF decrease to 20% but in setting of recent shock. Resumed on HD on 06/30/25 with transition to [facility] on 07/01/25. R femoral CVC was removed 07/02/25. Dobutamine and pressors weaned off by 07/02/25. Pt extubated 07/03/25. Plan to cont abx with Ceftaroline and Dapto. Fold in home lasix, hydralazine. Maintained on Hep gtt. Nephro, ID and Palliative following. Pulm-CC followed. On Hep gtt and Dapto which are high risk meds which require frequent monitoring. Patient still having some intermittent confusion. Physical Exam (Focused elements based on presentation): BP 139/78 (BP Location: Left arm, Patient Position: Lying) Pulse 82 Temp 97.8 F (36.6 C) (Axillary) Resp 18 Ht 5' Wt 93.5 kg (206 lb 2.1 oz) SpO2 100% BMI 40.26 kg/m General: NAD, resting in bed Eyes: EOMI ENT: neck supple Cardiovascular: Controlled rate Respiratory: Equal / symmetric rise of chest, CTAB Gastrointestinal: Soft, non tender, obese abd, + bowel sounds Genitourinary: no CVA tenderness Musculoskeletal: CLIFTON x4 Skin: fourth metatarsal wound; HD line present Neuro: Alert, oriented but w/ some intermittent confusion Psych: Calm, drowsy Physical Therapy PHYSICAL THERAPY EVALUATION Skilled Therapy Needs After Discharge Anticipate Resolution of Current Assessment Limitations Including: Pain, Delirium, Mechanical Barriers, Social Support Are medical doctor md/medical director Therapy Services Needed After Discharge: Yes Intensity of medical doctor md/medical director Therapy: Up to 5 days per week Anticipated Duration of medical doctor md/medical director Therapy: Duration 10 - 30 days PT DME Recommendation: To be determined at next level of care Rehab Potential: Good, For goals Outcomes Measures Prior Function - Basic Mobility Raw Score: 24 Points Prior Function - Basic Mobility % Impaired: 0% AM-PAC Basic Mobility Raw Score: 7 Points AM-PAC Basic Mobility % Impaired: 93.19% Physical Therapy Assessment History: The following factors influence the patient's participation in the PT plan of care: Personal Factors: Decreased Insight, Age Environmental Factors: Steps to enter home The following co-morbidities (from this admission or prior) influence the patient's participation in this plan of care: MRSA bacteremia, multifactorial shock, respiratory failure due to volume overload, ESRD, encephalopathy. Number of History elements affecting this patient's PT plan of care: 3 or more Examination of Body Systems: The patient presents with: Musculoskeletal impairments: Strength, ROM, Pain, Functional Endurance Neurologic Impairments: Balance, Pain, Cognition Cardiopulmonary Impairments: Activity Tolerance, O2 Saturation Regulation with Activity. These impairments result in limitations of Gait, Functional Transfers, Stair-Climbing, Safety, Safety Awareness, Activity Tolerance, Insight. These impairments result in restrictions of Household mobility, Community mobility. Number of Body Systems elements affecting this patient's PT plan of care: 4 or more. Clinical Presentation: The patient's clinical presentation for this PT evaluation is with unstable and unpredictable characteristics as evidenced by current PT documentation. Activity Tolerance Activity Tolerance: Tolerates 10 - 20 min activity with multiple rests Therapy Precautions General Rehab Precautions: Fall risk Balance Assessment Sitting Balance - Static: Minimal assist Sitting Balance - Dynamic: Minimal assist Standing Balance - Static: (Unable) Bed Mobility Supine to Sit: Maximal assist, 2 person assist Sit to Supine: Dependent, 2 person assist Outboard Motor Assembler: bed positioning mechanics, patient slide sheet / friction-reducing device Transfers Sit to Stand: (Unable) Gait/Locomotion Gait Assistance: (Unable) Additional Assessment Details Pt tolerated seated at EOB x ~ 4 minutes. Pt grimacing due to back pain. Pt propulsive with seated at EOB. Home Living Obtained Home Living and PLOF info from: Patient Lives With: Spouse Type of Home: House Home Layout: Two level, Bed on main level Steps to enter home: Yes Rails to enter home: 1 rail Number of stairs to enter home: 4 Mobility Equipment: (Does not use any assistive devices) Prior Level of Function Level of [place] - Transfers/Ambulation/Mobility: Independent with functional transfers, Independent with household ambulation Level of [place] - ADLs: Independent Level of [place] - Homemaking: Independent Driving: Patient drives Past Medical History: Diagnosis Date Arthritis Cataracts, bilateral Colon polyp 2011 Tubular adenoma Diabetes (HCC) Endometrial cancer (HCC) 08/2014 s/p Hysterectomy and External beam radiation as well as internal radiation, no chemo...ONCOLOGIST: [facility] [place] (Dr. Ryan) Hyperlipidemia Hypertension Morbid obesity (HCC) Thyroid disease Past Surgical History: Procedure Laterality Date CHOLECYSTECTOMY 1997 COLONOSCOPY 06/02/2012 tubular adenoma removal...Dr. Funez COLONOSCOPY 06/16/2017 Normal....Dr. Funez EAR PIERCINGS HYSTERECTOMY 08/2014 for Endometrial CA TEETH EXTRACTION For complete objective data, detailed plan of care and patient education refer to: PT Evaluation flowsheet, PT Evaluation and Treatment flowsheet, PT Treatment flowsheet, patient Plan of Care, Plan of Care progress note, and Patient Education. This note stands as the current Discharge Summary upon patient discharge from the hospital or completion of Physical Therapy Plan. Occupational Therapy OCCUPATIONAL THERAPY EVALUATION Skilled Therapy Needs After Discharge Anticipate Resolution of Current Assessment Limitations Including: Mechanical Barriers Are OT Skilled Therapy Services Needed After Discharge: Yes Intensity of OT Skilled Therapy: Up to 5 days per week Anticipated Duration of OT Skilled Therapy: Duration 10 - 30 days OT DME Recommendation: To be determined at next level of care Rehab Potential: Good, For goals Outcomes Measures Prior Function Daily Activity Raw Score: 24 Prior Function Daily Activity % Impaired: 0% AM-PAC Daily Activity Raw Score: 6 AM-PAC Daily Activity % Impaired: 100% Occupational Therapy Assessment The patient's current functional participation deficits are feeding, grooming, UE dressing, LE dressing, bathing, toileting, hobbies, functional mobility, home management, meal preparation, driving. This reduced independence will limit their life roles of premorbid level individual. The patient's co morbidities do significantly affect patient performance in the above activities and roles. The performance deficits are a result of musculoskeletal impairment(s) in generalized debility including strength, balance, acitvity tolerance, insight, safety, initiation, termination, command following, orientation, problem solving, sequencing, attention, memory, alertness, perception, and knowledge deficit. The patient's home setup is a suede brusher, family / caregiver support is a suede brusher for return to prior level of function. The patient's awareness of own capacity and performance is a barrier to return to prior level of function. During the assessment, significant modification of task was required and multiple treatment options were identified in the plan of care. This consultation required extensive review of the medical and therapy history. Activity Tolerance Activity Tolerance: Tolerates less than 10 min activity, no significant change in vital signs (VSS) Therapy Precautions General Rehab Precautions: Fall risk Cognition Overall Cognitive Status: Impaired Arousal/Alertness: Delayed responses to stimuli Orientation Level: Oriented to person, With choices, Oriented to place, Disoriented to time, Disoriented to situation Executive functioning: Max impairment, Insight, Processing delay, Sequencing, Planning / Organizing Safety Judgment: Decreased awareness of need for assistance, Decreased awareness of need for safety Problem Solving: Assistance required to identify errors made, Assistance required to generate solutions, Assistance required to implement solutions Attention: Impaired, Sustained attention (max cues to attend) Social Interaction: Impaired, Confused, Cooperative, Flat affect Comments: patient follows simple 1 step commands ~50-75% session. Patient with difficulty sustaining eye opening and attending to tasks. ADL Grooming: Maximal assist, Dependent (to wash face; attempted to increase arousal) Upper Body Dressing: Dependent Lower Body Dressing: Dependent Bed Mobility Supine to Sit: Maximal assist, 2 person assist, Head of bed elevated Sit to Supine: Dependent, 2 person assist, Head of bed flat Functional Transfers Sit to Stand: (patient unable to tolerate this date) Additional Assessment Details patient with noted impaired attention and impaired command following. Provided delirium reduction strategies: lights on, frequent re-orientation and attempted to engage in simple ADL (grooming) task Home Living Obtained Home Living and PLOF info from: Patient Lives With: Spouse Type of Home: House Home Layout: Two level, Bed on main level Steps to enter home: Yes Rails to enter home: 1 rail Number of stairs to enter home: 4 Mobility Equipment: (Does not use any assistive devices) Prior Level of Function Level of [place] - Transfers/Ambulation/Mobility: Independent with functional transfers, Independent with household ambulation Level of [place] - ADLs: Independent Level of [place] - Homemaking: Independent Driving: Patient drives Past Medical History: Diagnosis Date Arthritis Cataracts, bilateral Colon polyp 2011 Tubular adenoma Diabetes (HCC) Endometrial cancer (HCC) 08/2014 s/p Hysterectomy and External beam radiation as well as internal radiation, no chemo...[facility]IST: [facility] [place] (Dr. Ryan) Hyperlipidemia Hypertension Morbid obesity (HCC) Thyroid disease Past Surgical History: Procedure Laterality Date CHOLECYSTECTOMY 1997 COLONOSCOPY 06/02/2012 tubular adenoma removal...Dr. Funez COLONOSCOPY 06/16/2017 Normal....Dr. Funez EAR PIERCINGS HYSTERECTOMY 08/2014 for Endometrial CA TEETH EXTRACTION For complete objective data, detailed plan of care and patient education refer to: OT Evaluation flowsheet, OT Evaluation and Treatment flowsheet, OT Treatment flowsheet, patient Plan of Care, Plan of Care progress note, and Patient Education. This note stands as the current Discharge Summary upon patient discharge from the hospital or completion of Occupational Therapy Plan of Care. Speech Pathology General Cognition / Communication Eval Note Auditory Comprehension Severity rating: Modified Indep/Extended time Expressive Language Severity rating: WFL Motor Speech Severity rating: WFL Cognition Severity rating: Requires further assessment, Appears Moderate Pt's eyes remained closed do to light sensitivity, not lethargy. Pt answers questions appropriately and following commands with intermittent repetitions needed. Pt's pain and restlessness are barriers to participation. Factors for returning to Prior Level of Function: Factors for Returning to Prior Level of Function Body Structure and Function: Musculoskeletal impairment, Cardiopulmonary impairment Explain Impairments: HFrEF, ESRD, DMII, HTN, HLD, morbid obesity who initially presented to [facility] on 06/25/25 after suffering a mechanical fall with LOC. Her course was complicated by respiratory failure requiring intubation on 06/25/25, MRSA bacteremia requiring HD line removal, and symptomatic bradycardia. She was transferred to [facility] for management of cardiogenic and septic shock. Activities and Participation: Swallowing limitation Explain Limitations: r/o dysphagia Environmental Factors: Home situation, Family/caregiver support Explain Environmental Factors: OLH, but initially at home Personal Factors: Awareness of own capacity and performance Explain Personal Factors: further assessment Skilled therapy needs: Skilled Therapy Needs: Are Skilled Therapy Services Needed After Discharge: Yes Functional Limitations: dysphagia, anticipate difficulty with household activities Intensity of ST Skilled Therapy: 5 to 7 days per week Anticipated Duration of ST Skilled Therapy: Duration 10 - 30 days Prior function: Prior Function Reason for Referral: Altered mental status Primary Language: Zambian 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) Education Level: College grad Living Situation: With others (supportive spouse) Prior Speech Deficit: No known previous deficits, Per chart review Prior Language Deficit: No known previous deficits, Per chart review Prior Cognitive Deficit: No known previous deficits, Per chart review, Per caregiver report Baseline Assessment Subjective Impression: Alert, Cooperative, Pleasant Mood, Caregiver/family at bedside (eyes remained closed) Respiratory Status: Nasal cannula Oral motor: Oral/Motor Oral Motor Impression-Severity Scale: WFL (diffuse weakness present) Labial ROM: Within Functional Limits Labial Symmetry at Rest: Within Functional Limits Labial Strength: Reduced Lingual Symmetry: Within Functional Limits Lingual Strength: Reduced Mandible: Reduced Strength Facial ROM: Within Functional Limits Facial Symmetry at Rest: Within Functional Limits Auditory Comprehension: Auditory Comp Impression-Severity Scale: Modified Indep/Extended time Commands: Exceptions to WFL One Step Basic Commands: Modified Indep/extended time Yes/No Questions: Within Functional Limits Conversational Speech: Exceptions to WFL Simple Conversation: 75-90% (Mild) Interfering Components: Attention, Working Memory Expressive Language: Expressive Language Impression-Severity: WFL Primary Mode of Expression: Verbal Repetition: WFL Narrative: WFL Motor Speech: Motor Speech Impression Severity: WFL Speech Intelligibility: WFL Cognitive-Communication: Speech Cognition Impression-Severity: Requires further assessment, 50-75% (Moderate) Orientation Level: Oriented to person, Oriented to place, Oriented to time, With cues Attention: Exceptions to WFL Sustained Attention: 25-50% (Severe) Alternating Attention: 25-50% (Severe) Additional Observation: Requires redirection Memory: Exceptions to WFL Immediate recall: 50-75% (Moderate) Delayed recall: No response Long-term memory: 75-90% (Mild) Additional Observation: Repeats self Safety/Judgement: Exceptions to WFL Behavioral Observations: unable to self correct Insight: No response Patient O-Log (Orientation Log) Score - Cut off score 25 or better on two separate administrations: Orientation-Log Orientation-log: Yes City: [address]: 3 Name of Hospital: 3 Month: 3 Year: 2 Orientation Log Impression - HOBBER: Will continue the O-Log based on the score today. Patient Cog-Log (Cognitive Log) Score - Cut off score 25 or better: Cognitive-Log Cognitive-log: No Variance - Cognitive Log: Unable to complete test due to endurance limitations HOBBER Caregiver Readiness: HOBBER Caregiver Readiness ST Rationale: Working toward discharge home ST Training Progress: Initiated & ongoing - follow-up required ST Identified Caregiver: Spouse, Other (comment) (daughter in-law) Caregiver Present for ST Session: Yes ST Training Provided For: Cognition - follow-up required, Oral Care - completed, Importance of follow-up therapy - completed, Results of MBS/FEES - follow-up required Caregiver response to training: Verbalizes understanding Speech Plan: Further acute Speech Therapy services indicated: Yes Role of ST Discussed: With patient, With family/caregiver Risk/Benefits of ST Discussed: With patient, With family/caregiver Patient Goal for Treatment: To go home Rehab Potential: Good, for established goals Further Recommendations: MBS Past Medical History: Diagnosis Date Arthritis Cataracts, bilateral Colon polyp 2011 Tubular adenoma Diabetes (HCC) Endometrial cancer (HCC) 08/2014 s/p Hysterectomy and External beam radiation as well as internal radiation, no chemo...ONCOLOGIST: [facility] [place] (Dr. Ryan) Hyperlipidemia Hypertension Morbid obesity (HCC) Thyroid disease Past Surgical History: Procedure Laterality Date CHOLECYSTECTOMY 1997 COLONOSCOPY 06/02/2012 tubular adenoma removal...Dr. Funez COLONOSCOPY 06/16/2017 Normal....Dr. Funez EAR PIERCINGS HYSTERECTOMY 08/2014 for Endometrial CA TEETH EXTRACTION For complete objective data, detailed plan of care, and education refer to: Speech Comm/Cog Eval flow sheet, as well as patient Plan of Care and Education documentation. This note stands as the current Discharge Summary upon patient discharge from the hospital or completion of Speech Pathology Plan of Care Speech Pathology Bedside Swallow Evaluation Recommendations: Further Eval Rxs: Repeat BSE, Cognitive-communication evaluation NPO Recommendations: Except ice chips following oral care, Except medication with puree Medication Presentation: Crushed in puree, Whole in puree, Per Patient Preference (when awake, alert and accepting) Amount of Supervision: Nursing staff supervision Treatment Techniques: Train swallowing strategies Further Recommendations: Oral care TID, Perform/Repeat instrumental assessment prior to diet advancement Recommended Referrals: ENT, Assess laryngeal function (pending progress with vocal quality) Discharge Recommendations: Skilled Therapy Needs: Are Skilled Therapy Services Needed After Discharge: Yes Functional Limitations: dysphagia, anticipate difficulty with household activities, anticipate difficulty with return to community Intensity of ST Skilled Therapy: Up to 5 days per week Anticipated Duration of ST Skilled Therapy: Duration 10 - 30 days Prior Function: Reason for Referral: Post-extubation Prior Swallow Deficit: Pt unable to provide history Diet Prior to BSE: NPO Intubation Date: 06/25/25 (at [facility]) Extubation Date: 07/02/25 Primary Language: Zambian Baseline Assessment: Subjective Impression: Alert, Somnolent, Requires Cueing, Does not follow commands Respiratory Status: Nasal cannula Dentition: Permanent Self-Feeding Barriers: Impaired for self-feeding Patient Positioning: Partially reclined (due to femoral HD cath) Volitional Cough: Weak Secretion Management: Required oral care to remove dried secretions (some noted bloody secretions) Oral Care: HOBBER performed, with suction toothbrush Oral Motor: Oral Motor Impression-Severity Scale: WFL Labial ROM: (unable to follow formal commands for oral motor assessment, but no asymmetry or general weakness) Voice: Breath Support: Reduced Vocal Quality: Weak, Harsh, Hoarse Vocal Intensity: Moderately decreased Consistencies Assessed: CONSISTENCY PRESENTATION ORAL (SIGNS / SYMPTOMS) PHARYNGEAL (SIGNS / SYMPTOMS) ICE Spoon, HOBBER fed Within functional limits Within Functional Limits THIN Spoon, Straw, Limited trials Within functional limits Suspect decreased laryngeal elevation, Suspect silent aspiration NECTAR HONEY PUREE HOBBER fed, Spoon Within functional limits Within Functional Limits SOFT SOLID No cough, choke, throat clear or c/o globus with any textures Dysphagia risk factors include CHF, Intubation (>3 days and/or age 65+), Wet or gurgling vocal quality, Age >65, and Altered Mental Status/AMS; Evidenced-based predictors of aspiration pneumonia (Langmore et al., 1998) include: dependent for feeding , number of decayed teeth, multiple medical diagnoses contributing to impaired immune system , current smoker, number of medications, dependent for oral care, tube fed, and poor oral hygiene . Impressions-Severity Level: Oral Severity Scale: WFL Pharyngeal Severity Scale: Suspect impaired Factors for Returning to PLOF: Body Structure and Function: Musculoskeletal impairment, Cardiopulmonary impairment Explain Impairments: HFrEF, ESRD, DMII, HTN, HLD, morbid obesity who initially presented to [facility] on 06/25/25 after suffering a mechanical fall with LOC. Her course was complicated by respiratory failure requiring intubation on 06/25/25, MRSA bacteremia requiring HD line removal, and symptomatic bradycardia. She was transferred to [facility] for management of cardiogenic and septic shock. Activities and Participation: Swallowing limitation Explain Limitations: r/o dysphagia Environmental Factors: Home situation, Family/caregiver support Explain Environmental Factors: OLH, but initially at home Personal Factors: Awareness of own capacity and performance Explain Personal Factors: further assessment HOBBER Caregiver Readiness: Speech Plan: Further acute Speech Therapy services indicated: Yes Role of ST Discussed: With patient, Unable due to mental status, Unable due to medical status Risk/Benefits of ST Discussed: With patient, Unable due to medical status, Unable due to mental status Patient Goal for Treatment: Unable to express goals Rehab Potential: Good Further Recommendations: BSE re-assessment, FEES, MBS, Speech/language/cognitive evaluation Recommended Referrals: ENT, Assess laryngeal function (pending progress with vocal quality) For complete objective data, detailed plan of care, and education refer to: Speech Bedside Swallow Evaluation flow sheet, as well as patient Plan of Care and Education documentation. This note stands as the current Discharge Summary upon patient discharge from the hospital or completion of Speech Pathology Plan of Care. Associated Order(s): IP CONSULT TO ENTEROSTOMAL THERAPY tobacco conditioner consult/evaluation note: Misael Medina is being seen as a consult for multiple concerns - right chest incision, sacrum, bilateral lower legs, and left fourth toe. Verbal consent was obtained when possible for any photographs uploaded to the patient's chart. Description of visit: Patient in bed, on CRRT. Assisted by bedside RN to turn patient. SACRUM - Blanchable erythema to buttocks, otherwise skin intact. Recommend frequent repositioning and offloading. Patient turned to left side with wedges at this time. Recent episode of diarrhea, held off on use of preventative mepilex at this time. BILATERAL LOWER LEGS - Likely hyperpigmented scar tissue, no wound care needs CHEST INCISION - Removal of previous HD line, approximated and non-toxic in appearance. Cleansed with CHG, covered with dry gauze, secured with tegaderm. LEFT FOURTH TOE - Unclear etiology, patient unable to give history. Sheet of dry skin over wound, easily removed. Cleansed with soap and water, noted previous drainage pooling at base of toes and dry skin to imelda wound. Some erythema to imelda wound. MediHoney applied to wound bed, covered with mepilex bordered foam, recommend changing every other day and as needed. Wound 06/28/25 Acute Incision Cervical Anterior Right (Active) Properties Placement Date 06/28/25 Placement Time 1830 Wound Location Orientation Right Present on Original Admission Yes Wound Condition (HOME HEALTH ONLY) Acute Primary Wound Type Incision Location Cervical Anterior Wound Closure Approximated DRESSING gauze + tegaderm Assessments 07/02/2025 11:09 AM Dressing Status Changed Wound Progress Initial exam Drainage Amount None Drainage Description None Odor None Wound Closure Approximated Imelda-wound Assessment Clean;Intact Cleansed Chlorhexadine Primary Dressing Dry gauze Secondary Dressing Transparent film No associated orders. Wound 07/02/25 Fourth Toe Dorsal;Left (Active) Properties Placement Date 07/02/25 Placement Time 1115 Wound Location Orientation Dorsal;Left Present on Original Admission Yes Location Fourth Toe Assessments 07/02/2025 11:09 AM Wound Image Dressing Status Changed Wound Progress Initial exam Drainage Amount Scant Drainage Description Fresh blood Odor None Wound Characteristics Moist;White;Yellow Imelda-wound Assessment Erythema Cleansed Soap and water Primary Dressing Medical Honey Secondary Dressing Bordered Foam Dressing (e.g. mepilex) Active Orders Date Order Priority Status Authorizing Provider 07/02/25 1123 Wound care LEFT FOURTH TOE Routine Active Keyshawn Burton, ET - Specify site: LEFT FOURTH TOE - Product(s): MEDIHONEY, MEPILEX - Cleanse site with: Soap and water Patient unable to assist with repositioning, assisted to roll. Patient unable to verbalize pain via pain scale, no signs of discomfort noted Current Manny (Pressure Injury Risk) Scores per last staff nurse values: Manny Scale Sensory Perceptions: Slightly limited [3] Moisture: Occasionally moist [3] Activity: Bedfast [1] Mobility: Very limited [2] Nutrition: Adequate [3] Friction and Shear: Potential problem [2] Manny Scale Score: 14 Manny Scale scores ranging from 9 or less indicate SEVERE risk, 10-12 equal high risk, 13-14 determine a moderate risk, 15-19 indicate mild risk. Recommend pressure reduction techniques including frequent repositioning, minimizing elevation of the head of the bed, and encouraging patient to be out of bed as much as possible (use pressure reducing chair cushion when sitting in chair) unless medically contraindicated. Elevate/float heels off bed using a pillow. Specialty Care Plan: Education: Patient not teachable at this time regarding treatment plan. Prevention measures recommended: Q2 hour turns, Air Transfer and Positioning System - AirTap, Heel Elevation (Float heels off of support surface), Offloading Boots, Offloading/Repositioning Wedges, and Specialty Bed - Low Air Loss Utilize Barrier Cream and Avoid use of absorbent briefs, utilize disposable [facility] Bed Low Air Loss in-use Applicable consults: N/A Updates relayed to staff nurse. Orders and AVS updated with Wound Care instructions and education as applicable. Wound Care Team to sign off, please reconsult with additional needs. Thank you. Please note that Wound Care Team is unavailable on Weekends and Holidays. For questions/concerns, lazaro the note author; OR lazaro WOUND CARE Nurse ; OR saulo wesley [place] Inpatient Wound Care Nurse Palliative Medicine Consult Note PATIENT: Misael Medina : 1950 ADMISSION DATE: 06/28/2025 5:52 PM Clinical Summary: Misael Medina is a 75 y.o. y/o female with a history of HFrEF, ESRD (since March 2025), T2DM, HTN, HLD, and morbid obesity who initially presented to [facility] on 06/25/25 after suffering a mechanical fall. Her course was complicated by respiratory failure requiring intubation on 06/25/25, MRSA bacteremia requiring HD line removal, and symptomatic bradycardia. She was transferred to [facility] for management of cardiogenic and septic shock. She presented to [facility] on 06/28/2025. Palliative Medicine was consulted on hospital day 4 for assistance with Clarification of Goals of Care (GOC). Assessment / Recommendations Palliative Care Encounter At this time, Misael Medina, does not demonstrate capacity for medical decision-making. Capacity is time limited and situation/question specific. She is orally intubated, not able to make her needs known. No HCPOA documents on file. If we do not obtain completed HCPOA documentation, we must follow [place] surrogate decision making priority rules per [place] Revised Code in descending order of priority as follows: 1) guardian 2) spouse 3) majority of adult children 4) patient's parents 5) majority of adult siblings of patient 6) nearest adult who his related by blood or adoption. Her surrogate decision maker is her spouse/. During encounter briefly visited bedside. Spoke via phone with , Jonny. He shared detailed review of her medical issues noting she started decline in health around Sep 2024, multiple hospitalizations have followed. Encouraged Jonny to visit bedside in the coming days. Will follow up on 's plans, he is currently unsure when he may visit. Patient with multiple life threatening concerns, thus concern for poor prognosis remains. Pertinent Hospital Diagnoses Acute Hypoxic Respiratory Failure - orally intubated on vent at present, likely to medically extubate soon per ICU direction Severe Sepsis Acute on Chronic HFrEF MRSA Bacteremia ESRD - on CRRT currently Suspected SVC Vegetation/Mass Mechanical Fall - prompting initial hospitalization T2DM HTN Morbid Obesity Psychosocial Aspects of Care , 2 sons (Faustino and Reagan) Palliative Medicine follow-up Round daily I reviewed my assessment and plan of care with ICU SAYRA Jamarcus Burton. Thank you for the opportunity to participate in the care of Misael Medina. Clarita Aguilar, Office: [phone] Cell: see treatment team Subjective During encounter briefly visited bedside. Ed is orally intubated, appears calm, eyes closed, no continuous sedation ongoing. When I said her name she opened her eyes, appeared restless, calmed with gentle verbal redirection and light touch. No visitors present. Separate I then spoke via phone with , Jonny. He shared detailed review of her medical issues noting she started decline in health around Sep 2024, multiple hospitalizations have followed. He is aware she was transferred from [facility] to [facility] due to the findings of the mass/clot and that she has a blood infection. He reports she has lost weight in recent months due to very poor appetite. Prior to syncope and fall on 06/25 she was living at home with him, not able to do many chores or meal prep, but was at times able to help fold clothes or prepare laundry. He notes her kidneys failed during a 10 day hospital stay in March 2025, after which she spent time at SNF/rehab facility in [place], [place]. He is going to work on talking to his sons and daughter in law about potentially coming to hospital in the coming days. He feels unsure about driving in [place]. Encouraged him to visit earlier in the week if possible. He notes awareness that patient is sick stating we almost lost her days ago. I reviewed she remains fragile and with serious health issues. [] ROS is negative except what is stated above with the notable exceptions: [x] Unable to obtain review of systems due to intubation/neurologic status: Review: I have reviewed the active problem list in the electronic medical record and have made updates as needed. Information for this consult was obtained from: Patient, Family, Medical Care Team, and EMR Objective Data Vitals: 07/02/25 0900 07/02/25 0913 07/02/25 0915 07/02/25 0930 BP: Pulse: 95 (!) 107 82 Resp: (!) 25 (!) 25 (!) 22 12 Temp: TempSrc: SpO2: 98% 99% 98% Weight: Height: ALLERGIES: Grass pollen PHYSICAL EXAM: CONSTITUTIONAL: Appears older than listed age. Orally intubated. Supine in bed. Opens eyes to name and touch. Easily startled. NEURO: No tremors or myoclonus. Billing: I spent 56 minutes in total time today including chart review, care coordination and visit to bedside. Associated Order(s): IP CONSULT TO PALLIATIVE CARE Palliative care consult acknowledged; our team with reach out to discuss and to assist with GOC needs tomorrow. Please call with any urgent needs. Chayo Mcfarland DO Associated Order(s): IP CONSULT TO DIETITIAN Nutrition Care Initial Assessment Reason for visit: Physician Consult: Tube Feeding Initiate and Manage Nutrition Diagnosis: Inadequate protein/energy intake r/t inability to take PO In setting of mechanical ventilation AEB NPO status, current intakes inadequate to meet estimated protein/energy intake Nutrition Intervention/Prescription: When clinically appropriate initiate enteral nutrition *Tube Feeding: Peptamen Intense VHP to goal of 50 ml/hr x 22 hr (holding for enteral Synthroid) via OG. Goal volume provides 1100ml/924ml free water/101g protein/1100 Kcals per day. Propofol providing 206 additional calories x 24 hours at current rate *Fluid management deferred to primary team while pt in ICU Nutrition Goals: Tolerate advancement of enteral feeds to goal rate Start Date:07/01/2025 Expected End Date:07/05/2025 Nutrition Education: Not appropriate due to clinical presentation Assessment: Pertinent clinical information: Presented to [facility] after a mechanical fall with LOC. Course complicated by respiratory failure requiring intubation, MRSA bacteremia, HD line removal (06/26/25). Last HD: 06/23 <family report>, symptomatic bradycardia. Transferred to [facility]. Cardiogenic shock-resolved, acute on chronic HFrEF, Sepsis, right pleural effusion, acute encephalopathy. Past Medical History: Diagnosis Date Arthritis Cataracts, bilateral Colon polyp 2011 Tubular adenoma Diabetes (HCC) Endometrial cancer (HCC) 08/2014 s/p Hysterectomy and External beam radiation as well as internal radiation, no chemo...[facility]COLOGIST: [facility] [place] (Dr. Ryan) Hyperlipidemia Hypertension Morbid obesity (HCC) Thyroid disease Past Surgical History: Procedure Laterality Date CHOLECYSTECTOMY 1997 COLONOSCOPY 06/02/2012 tubular adenoma removal...Dr. Funez COLONOSCOPY 06/16/2017 Normal....Dr. Funez EAR PIERCINGS HYSTERECTOMY 08/2014 for Endometrial CA TEETH EXTRACTION Height: 5' Current weight: 103.2 kg (227 lb 8.2 oz) BMI Body mass index is 44.43 kg/m . Wt Readings from Last 10 Encounters: 07/01/25 103.2 kg (227 lb 8.2 oz) 05/31/17 122 kg (269 lb) Current diet order: Diet: NPO Recent intake: decreased Current intake does not meet estimated needs. Barriers to adequate p.o. intakes: Intubation Nutrition Related Allergies/Intolerances: No Nutrition Related Allergies noted Cultural or Uatsdin Dietary Needs :No Cultural or Uatsdin Dietary needs noted Patient/family comments:Deferred: Pt intubated Difficulty Chewing or Swallowing: Unable to Assess- Pt intubated Skin Integrity: Intact GI Function: LBM: 07/01 Fluid Status: + 1 pitting Edema noted Physical Appearance: Unable to assess at this time Labs: Recent Labs 06/28/25184606/29/25 0218 07/01/25 0423 NA 133* < > 141 K 4.5 < > 4.3 BICARB 20* < > 23 CL 96* < > 101 GLUCOSE 248* < > 92 BUN 84* < > 50* CREATININE 6.51* < > 4.32* MG 2.3 < > 2.1 PHOS 7.2* < > 4.2* TRIG 120 -- -- ALBUMIN 2.8* -- -- < > = values in this interval not displayed. Recent Labs 06/28/25 1847 06/29/258 06/30/25 0335 07/01/25 0423 GLUCOSE 248* 195* 107* 92 Lab Results Component Value Date HGBA1C 6.6 (H) 06/28/2025 Scheduled Meds: atorvastatin 10 mg Tube Nightly famotidine 20 mg Tube Nightly insulin lispro 0-30 Units Subcutaneous Q4H YOLI [START ON 07/02/2025] levothyroxine 112 mcg Tube Daily melatonin 5 mg Tube Nightly QUEtiapine 25 mg Tube Nightly senna-docusate 1 tablet Tube BID sodium chloride (PF) 10 mL Intracatheter Q8H YOLI sodium chloride (PF) 5 mL Intravenous Q8H YOLI vancomycin per pharmacy 1 each Intravenous as indicated by pharmacokinetics Continuous Infusions: crrt BGK 4/2.5 with calcium (PRISMASATE) heparin infusion (weight based dosing) 10 Units/kg/hr (07/01/25 0600) heparin propofol 20 mcg/kg/min (07/01/25 0600) Estimated Energy Needs Total Energy Estimated Needs: 4163-1383 Kcals/day Method for Estimating Needs: 70-100% PSE Total Protein Estimated Needs: 115g/day Method for Estimating Needs: 2g/Kg target wt for BMI of 24.9 (57.8 kg) Carolina Mcfarland RD [facility] RD is available from 8am-4:30pm. Please see the on-call directory under [facility] Dietitian for contact information. Associated Order(s): IP CONSULT TO INFECTIOUS DISEASES INFECTIOUS DISEASES CONSULT NOTE Patient Name: Misael Medina Admit Date: [id number] MR #: [id number] : 1950 Physicians: Donal Will MD (Family) Referring Provider: Refer to consult order in electronic medical record Impression and Recommendations: 1) MRSA bacteremia 2) shock 3) ESRD/CKD recently on HD 4) h/o aortic stenosis 5) concern for SVC thrombus 6) infected dialysis catheter 7) DM2 Patient with persistent MRSA bacteremia 06/25-06/27 per OSH records, HD catheter removed 06/26 with purulence at site. Ongoing instability requiring transfer. - continue IV vancomycin dosed per pharmacy. Per faxed micro records, vancomycin DELIA 1.0. - blood cx 06/27 positive. Blood cx 06/29 pending collection. Repeat every 48-72hrs until clear - pt had HD catheter removed 06/26, there is still infected-looking fluid coming from site. I would favor CT C/A/P with IV contrast (if ok with nephrology) to evaluate for any residual infection or other site. - DESTIN pending, concern for infected SVC thrombus - she does have right femoral line placed while bacteremic, apparently difficulty placing upper line. If bacteremia continues will need to replace and remove CVC. Consider BUE/BLE dopplers to evaluate for clot. - nephrology following, no urgent need for HD per consult, if access required would need to be temporary HD line for now. - monitor for joint/back pain - bradycardia noted, if any need for EP intervention, suspect would need temporary device in setting of bacteremia - further recommendations pending clinical course. Prognosis appears guarded. Thank you for allowing me to participate in the care of your patient. I did discuss the plan of care with [facility], RN. Dr Seymour available if needed this weekend, otherwise ID will return 07/02 Chief Complaint/Reason for Visit: MRSA bacteremia thought to be related to permcath (removed 06/26), also with several wounds to lower extremities History of Present Illness: We are asked to see the patient at the request of [facility]. Misael Medina is a 75 y.o. female with multiple chronic conditions including DM2, HTN, HFrEF, aortic stenosis, CKD, morbid obesity BMI 44.78, presented to [facility] 06/25/25, transferred to [facility] 06/28/25 for further care. Available transfer records reviewed, extensive time spent going through large stack of paper records. Reported start on HD earlier this year, and some improvement in renal function, had permacath in place. Presented to ED after a fall, but reported other mechanical falls at home. WBC 20, AST 66, ALT 53, CTA chest moderate right effusion, CT abd with third spacing, CT cspine no acute injury. Ultimately required intubation and CVC placement R femoral 06/25. She did require pressor support with levophed. HD catheter removed 06/26, slight erythema externally, and some slight purulent tinged fluid that came out with the catheter per procedure note. Pressor off, but then severe bradycardia and started on isoproterenol. TTE 06/25 reported as EF 20%, global hypokinesis, pulmonary HTN, RV dysfunction, 3+ TR. She was on stress dose steroids. ID note Dr Bonds 06/27 recommended DESTIN, R thoracentesis, noted splinter hemorrhage L 1st toe. Per surgery note, tunneled catheter placed February or March, intermittently kinking, and replaced a few weeks ago. Report of DESTIN showing SVC thrombus but no formal report sent. Currently in CICU on IV vancomycin. WBC 15.46, LFTs ok. CXR reviewed. On dobutamine. Afebrile. We are asked to assist with management. Patient being prepared for DESTIN, no family at bedside. HR in 40s, per RN lower when sedation increased for DESTIN. Photos of wounds noted. No other known implanted material. [place] micro lab 06/29 discussion: Blood cx 06/25 MRSA Blood cx 06/26 MRSA Blood cx 06/27 (from central line) MRSA Cath tip 06/26 staph aureus (presumed MRSA) Pleural fluid 06/28 NGTD Sputum cx 06/25 normal nadia Urine cx 06/25 yeast (not albicans) and GNB Wound cx 03/19/25 (unknown source) staph epi, MRSA, E faecalis, corynebacterium. Wound cx 03/16/25 (unknown source) E casseliflavus, E avium, GPR Also per ophtho [facility] note 02/15/25 pt with h/o avastin injections. H/o central retinal artery occlusion left eye, posterior vitreous detachment left eye, macular superior branch vein occlusion. History: Past Medical History: Diagnosis Date Arthritis Cataracts, bilateral Colon polyp 2011 Tubular adenoma Diabetes (HCC) Endometrial cancer (HCC) 08/2014 s/p Hysterectomy and External beam radiation as well as internal radiation, no chemo...ONCOLOGIST: [facility] in [place] (Dr. Ryan) Hyperlipidemia Hypertension Morbid obesity (HCC) Thyroid disease Past Surgical History: Procedure Laterality Date CHOLECYSTECTOMY 1997 COLONOSCOPY 06/02/2012 tubular adenoma removal...Dr. Funez COLONOSCOPY 06/16/2017 Normal....Dr. Funez EAR PIERCINGS HYSTERECTOMY 08/2014 for Endometrial CA TEETH EXTRACTION Family History Problem Relation Age of Onset Diabetes Mother Heart disease Mother Diabetes Father Heart attack Father Hypertension Father Heart disease Father Hyperlipidemia Father Diabetes Sister Social History [1] Allergy Information: I have reviewed the patient's allergies. Grass pollen Home Medications: I have reviewed the patient's home medication list. Review of Systems: [x] Unable to obtain due to clinical status Physical Examination: Vital Signs: Temp: [97.6 F (36.4 C)-97.7 F (36.5 C)] 97.6 F (36.4 C) Heart Rate: [37-67] 40 Resp: [0-22] 20 BP: (108-143)/(54-84) 135/68 FiO2 (%): 50 General: Ill appearing, sedated Eyes: conjunctiva/sclerae clear Mouth and Throat: Oral exam with ETT Neck: Symmetrical Respiratory: Diminished, no increased effort Cardiovascular: Distant S1S2, slow rate Gastrointestinal (Abdomen): Soft, obese, non-tender, bowel sounds quiet Genitourinary: No jimenez Extremities: + edema Skin: No diffuse rash. Pale, scattered ecchymoses (large area on left forearm) Right chest site of prior HD catheter with bandage, when removed murky brown red fluid oozing out. Thickened toenails, splinter hemorrhage L great toe Hyperpigmented skin lower legs Musculoskeletal: No obvious joint edema or erythema Line: R femoral CVC no obvious erythema Laboratory and Additional Data Reviewed: Laboratory 06/29/25 8:39 AM Microbiology 06/29/25 8:39 AM Pathology 06/29/25 8:39 AM Radiology 06/29/25 8:39 AM Cardiology 06/29/25 8:39 AM Medications 06/29/25 8:39 AM Transcriptions 06/29/25 8:39 AM Current medications: atorvastatin 10 mg Oral Nightly famotidine (PEPCID) injection 20 mg Intravenous Q24H insulin lispro 0-30 Units Subcutaneous Q4H YOLI levothyroxine 112 mcg Oral Daily senna-docusate 1 tablet Oral BID sodium chloride (PF) 10 mL Intracatheter Q8H YOLI sodium chloride (PF) 5 mL Intravenous Q8H YOLI vancomycin per pharmacy 1 each Intravenous as indicated by pharmacokinetics Results from last 7 days Lab Units 06/29/25 0218 06/28/25 1910 06/28/25 1847 WBC K/mcL 15.46* -- 13.97* HGB g/dL 10.8* -- 11.0* HEMOGLOBIN BG g/dL -- 13.4 -- HEMATOCRIT, CALCULATED % -- 41.2 -- HCT % 33.7* -- 34.5* PLT K/mcL 159 -- 136* Results from last 7 days Lab Units 06/29/25 0218 06/28/25 1847 SODIUM mmol/L 134* 133* POTASSIUM mmol/L 4.6 4.5 CHLORIDE mmol/L 99 96* BUN mg/dL 84* 84* CREATININE mg/dL 6.37* 6.51* GLUCOSE mg/dL 195* 248* CALCIUM mg/dL 7.6* 7.7* Comments: WBC 15.46, Cr 6.37 LFTs reviewed [facility] lab: Blood cx 06/25 MRSA Blood cx 06/26 MRSA Blood cx 06/27 (from central line) MRSA Cath tip 06/26 staph aureus (presumed MRSA) Pleural fluid 06/28 NGTD Sputum cx 06/25 normal nadia Urine cx 06/25 yeast (not albicans) and GNB Wound cx 03/19/25 (unknown source) staph epi, MRSA, E faecalis, corynebacterium. Wound cx 03/16/25 (unknown source) E casseliflavus, E avium, GPR CTPA, A/P report [place] reviewed TTE report reviewed DESTIN pending Assessment Detail: The total time spent for this visit was 90 minutes. Greater than 50% of the time was spent in counseling and coordination of care regarding MRSA bacteremia. 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 Tobacco Use Smoking status: Never Substance and Sexual Activity Alcohol use: No Drug use: No Associated Order(s): IP CONSULT TO DIETITIAN Nutrition Care Initial Assessment Reason for visit: Physician Consult: Tube Feeding Recommendations Only Nutrition Diagnosis: Inadequate protein/energy intake r/t inability to take PO In setting of mechanical ventilation AEB NPO status, current intakes inadequate to meet estimated protein/energy intake Nutrition Intervention/Nutrition Prescription: When clinically appropriate initiate enteral nutrition *Tube Feeding: Peptamen Intense VHP to goal of 50 ml/hr x 22 hr (holding for enteral Synthroid) via OG. Goal volume provides 1100ml/924ml free water/101g protein/1100 Kcals per day. Propofol providing 170 additional calories x 24 hours at current rate *Fluid management deferred to primary team while pt in ICU Nutrition Goals: Provide a source of nutrition in next 24-72 hrs Discussed with patient's family Start Date:06/29/2025 Expected End Date:07/03/2025 Nutrition Education: not appropriate due to clinical presentation Assessment: Pertinent clinical information: Presented to [facility] after a mechanical fall with LOC. Course complicated by respiratory failure requiring intubation, MRSA bacteremia, HD line removal (06/26/25). Last HD: 06/23 <family report>, symptomatic bradycardia. Transferred to [facility]. Cardiogenic shock-resolved, acute on chronic HFrEF, Sepsis, right pleural effusion, acute encephalopathy. ESRD-nephrology consult pending Past Medical History: Diagnosis Date Arthritis Cataracts, bilateral Colon polyp 2011 Tubular adenoma Diabetes (HCC) Endometrial cancer (HCC) 08/2014 Hyperlipidemia Hypertension Morbid obesity (HCC) Thyroid disease Height: 5' Current weight: 104 kg (229 lb 4.5 oz) BMI Body mass index is 44.78 kg/m . Wt Readings from Last 5 Encounters: 06/29/25 06/28/25 04/24/25 09/30/23 104 kg (229 lb 4.5 oz) 94.8 kg (209 lb) 97.2 kg (214 lb) 112 kg (246 lb) 05/31/17 122 kg (269 lb) EDW (2025)-per EMR review/OP HD clinic: 94.8 kg (208 lb) Wt hx: Per EMR review, patient report of 50# wt loss since 10/2024. Current wt +20# x 1 day (?accuracy; ?fluid). 06/28 wt = -5# x 2 months. Family reports weight loss started when patient started on 'pill' (for fluid, ?diuretic). Family unsure of current weight Diet prior to assessment: Diet NPO Recent intake: Family reports ongoing poor po intake since starting HD (03/2025); appetite not very good prior that. Patient usually eats well breakfast on the day of HD, otherwise 'picks' most days. No protein supplements at home. Patient has not reported nausea to family Current intake likely does not meet estimated needs Barriers to adequate nutrition intake: Intubation Nutrition Related Allergies/Intolerances: No Nutrition Related Allergies noted Cultural or Uatsdin Dietary Needs :No Cultural or Uatsdin Dietary needs noted Difficulty Chewing or Swallowing: JUNG (intubated/on vent). . Skin Integrity: intact GI Function (per nursing flowsheet): Abdomen Inspection: Soft, Rounded Bowel Sounds (All Quadrants): Active Last BM Date: 06/29/25 Fluid Status: non-pitting edema generalized and +1 pitting edema BLE Nutrition Focus Physical Exam Type: no s/s of malnutrition on visual exam Labs: Recent Labs 06/28/25 1847 06/29/25 0218 NA 133* 134* K 4.5 4.6 BICARB 20* 20* CL 96* 99 GLUCOSE 248* 195* BUN 84* 84* CREATININE 6.51* 6.37* CALCIUM 7.7* 7.6* MG 2.3 2.3 PHOS 7.2* 7.1* CHRISTOPHER 4.5 4.5 Recent Labs 06/28/25 1847 06/29/25 0218 GLUCOSE 248* 195* Lab Results Component Value Date HGBA1C 6.6 (H) 06/28/2025 Home Medications Reviewed: Lasix, Synthroid Scheduled Meds: atorvastatin 10 mg Oral Nightly famotidine (PEPCID) injection 20 mg Intravenous Q24H insulin lispro 0-30 Units Subcutaneous Q4H YOLI levothyroxine 112 mcg Oral Daily senna-docusate 1 tablet Oral BID sodium chloride (PF) 10 mL Intracatheter Q8H YOLI sodium chloride (PF) 5 mL Intravenous Q8H YOLI vancomycin per pharmacy 1 each Intravenous as indicated by pharmacokinetics Continuous Infusions: DOBUTamine 2.5 mcg/kg/min (06/29/25605) heparin infusion (weight based dosing) 11 Units/kg/hr (06/29/25605) propofol 15 mcg/kg/min (06/29/25605) Estimated Energy Needs Total Energy Estimated Needs: 3518-7036 Kcals/day Method for Estimating Needs: 70-100% PSE Total Protein Estimated Needs: 115g/day Method for Estimating Needs: 2g/Kg target wt for BMI of 24.9 (57.8 kg) Delta Crenshaw RD, JOHNATHON/Lazaro Associated Order(s): IP CONSULT TO NEPHROLOGY NEPHROLOGY CONSULTATION NOTE [facility] Patient Name: Misael Medina MR#: [id number] : 1950 Admit Date: [id number] Physicians: Donal Will MD (Family); Saeed Zelaya MD (Referring) Attending: Giselle Payne MD Reason for Consultation/History of Present Illness Patient is a 75yo female with history of JOSUE on CKD III secondary to ATN requiring HD, HFrEF, HTN, Type II DM, hypothyroidism, and morbid obesity. She initially presented to [facility] on 06/25/25 after a mechanical fall with LOC. Her course was complicated by acute respiratory failure requiring intubation (06/25) and MRSA bacteremia requiring perm cath removal for line holiday, and bradycardia. She was transferred to [facility] 06/28/25 for further management We are asked to manage dialysis. Assessment and Plan: 1) JOSUE on CKD III-->likely now ESRD -Started HD in March 2025 -Bx proven ATN (unclear circumstances) -TTS at [facility] with Dr. Carolyn Little chest perm cath removed [facility] (06/26) d/t MRSA bacteremia -Unclear last HD [facility] -EDW 96.3kg; she is well above this on admission -No urgency for HD; note report of SVC thrombus [facility] agree with decision to hold off on line insertion prior to clarifying this. -Trend labs, UO 2) Acute hypoxemic respiratory failure -Intubated at OSH [facility] -CXR on admissions with small bilateral effusions, mild vascular congestion -She does still make urine, so can resume home Lasix as BP allows; further volume removal with HD when her line is reinserted -Further care per primary 3) MRSA bacteremia -Blood cx positive at OSH; thought secondary to perm cath (now removed) -ID following; on Vancomycin 4) Shock -Components of septic and cardiogenic shock in setting of chronic HFrEF -Home antihypertensive medications on hold -On Isopril from OSH, now on Dobutamine -Abx as above 5) Secondary hyperparathyroidism -cCalcium acceptable, Phos elevated in setting of held HD -Does not appear that she was on a binder [facility] 6) Anemia of CKD -Hgb at goal of 10-11, SHANTI not indicated -IV iron contraindicated in setting of bacteremia 7) Acute metabolic encephalopathy -In setting of infection/sedatives -Bacteremia tx as above -Sedation wean per ICU -UF with HD as able 8) Hyponatremia, mild -Resume Lasix as able -Adjusting UF/Na bath with HD Thank you for the consult Will follow Will discuss with Dr. Arely Urbina Seen and examined in her room She is intubated/sedated; on 50% FiO2, peep 5 Dobutamine at 2.5mcg/kg/min Objective Vitals: BP 132/65 Pulse (!) 40 Temp 97.6 F (36.4 C) (Oral) Resp 18 Ht 5' Wt 104 kg (229 lb 4.5 oz) SpO2 97% BMI 44.78 kg/m Intake/Output last 3 shifts: Intake/Output Summary (Last 24 hours) at 06/29/2025 0603 Last data filed at 06/29/2025 0450 Gross per 24 hour Intake 753.49 ml Output 224 ml Net 529.49 ml No intake/output data recorded. Wt Readings from Last 3 Encounters: 06/29/25 104 kg (229 lb 4.5 oz) 05/31/17 122 kg (269 lb) Physical Examination: General: Ill appearing elderly female. Intubated/sedated Neuro: No myoclonus. Cardiac: Bradycardic, +murmur Pulmonary: Diminished bilaterally; unlabored on vent Abdominal: Obese, soft, non-tender, non-distended : Jimenez in place with modest yellow urine Skin: Warm/dry, no rashes/lesions Extremities: Minimal LE edema Access: None currently; dressing over former R chest perm cath site Results/Medications Reviewed: 06/29/25 6:03 AM: Laboratory, Microbiology, Pathology, Radiology, Cardiology, Medications and Transcriptions Scheduled Meds: atorvastatin 10 mg Oral Nightly famotidine (PEPCID) injection 20 mg Intravenous Q12H [facility] insulin lispro 0-30 Units Subcutaneous Q4H [facility] levothyroxine 112 mcg Oral Daily senna-docusate 1 tablet Oral BID sodium chloride (PF) 10 mL Intracatheter Q8H YOLI sodium chloride (PF) 5 mL Intravenous Q8H YOLI vancomycin per pharmacy 1 each Intravenous as indicated by pharmacokinetics Continuous Infusions: DOBUTamine 2.5 mcg/kg/min (06/29/25449) heparin infusion (weight based dosing) 11 Units/kg/hr (06/29/25449) heparin propofol 15 mcg/kg/min (06/29/25449) sodium chloride sodium chloride Laboratory: Results from last 7 days Lab Units 06/29/25 0218 06/28/25 1910 06/28/25 1847 WBC K/mcL 15.46* -- 13.97* HGB g/dL 10.8* -- 11.0* HEMOGLOBIN BG g/dL -- 13.4 -- HEMATOCRIT, CALCULATED % -- 41.2 -- HCT % 33.7* -- 34.5* PLT K/mcL 159 -- 136* Results from last 7 days Lab Units 06/29/25 0218 06/28/25 1847 SODIUM mmol/L 134* 133* POTASSIUM mmol/L 4.6 4.5 CHLORIDE mmol/L 99 96* BICARB mmol/L 20* 20* BUN mg/dL 84* 84* CREATININE mg/dL 6.37* 6.51* EGFR mL/min/1.73 m2 6* 6* GLUCOSE mg/dL 195* 248* CALCIUM mg/dL 7.6* 7.7* PHOSPHORUS mg/dL 7.1* 7.2* Allergies: I have reviewed the patient's allergies. Grass pollen Home Medications: Prior to Admission medications Medication Sig Start Date End Date Taking? Authorizing Provider acetaminophen (TYLENOL) 325 MG tablet Take 650 mg by mouth. Ezequiel Sanchez MD amLODIPine (NORVASC) 10 MG tablet 05/11/17 Ezequiel Sanchez MD atorvastatin (LIPITOR) 10 MG tablet 05/11/17 Ezequiel Sanchez MD carvediloL (COREG) 6.25 MG tablet Take 1 (one) tablet (6.25 mg total) by mouth 2 (two) times a day . Ezequiel Sanchez MD dapagliflozin propanediol (Farxiga) 10 mg tablet Take 1 (one) tablet (10 mg total) by mouth every morning . Ezequiel Sanchez MD ergocalciferol (ERGOCALCIFEROL) 1,250 mcg (50,000 unit) capsule Take 1 (one) capsule (50,000 Units total) by mouth once a week . Ezequiel Sanchez MD furosemide (LASIX) 40 MG tablet Take 1 (one) tablet (40 mg total) by mouth 2 (two) times a day . Ezequiel Sanchez MD hydrALAZINE (APRESOLINE) 25 MG tablet Take 1 (one) tablet (25 mg total) by mouth 3 (three) times a day . Ezequiel Sanchez MD ipratropium (ATROVENT) 42 mcg (0.06 %) nasal spray Instill 2 (two) sprays into each nostril 3 (three) times a day as needed for rhinitis . Ezequiel Sanchez MD isosorbide dinitrate (ISORDIL) 20 MG tablet Take 1 (one) tablet (20 mg total) by mouth 3 (three) times a day . Ezequiel Sanchez MD levothyroxine (Synthroid) 112 MCG tablet Take 1 (one) tablet (112 mcg total) by mouth once daily . Provider, MD Ezequiel metFORMIN (GLUCOPHAGE) 500 MG tablet Take 1 (one) tablet (500 mg total) by mouth 2 (two) times a day with meals . Provider, MD Ezequiel multivitamin (multivitamin) per tablet Take 1 tablet by mouth daily. Provider, MD Ezequiel History: Past Medical History: Diagnosis Date Arthritis Cataracts, bilateral Colon polyp 2011 Tubular adenoma Diabetes (HCC) Endometrial cancer (HCC) 08/2014 s/p Hysterectomy and External beam radiation as well as internal radiation, no chemo...[facility]COLOGIST: [facility] [place] (Dr. Ryan) Hyperlipidemia Hypertension Morbid obesity (HCC) Thyroid disease Past Surgical History: Procedure Laterality Date CHOLECYSTECTOMY 1997 COLONOSCOPY 06/02/2012 tubular adenoma removal...Dr. Funez COLONOSCOPY 06/16/2017 Normal....Dr. 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 I have completed the substantive portion of the visit (greater than 50% of total time) which includes but is not limited to reviewing the chart, obtaining history, performing physical exam, reviewing relevant data, and medical decision making, and coordination with the care team. I agree with the care plan documented by the SAYRA with the following additions/comments: Seen and examined bedside. Events noted. She was intubated, unable to give history. No family was present. Exam: Intubated, on dobutamine, critically ill Moving spontaneously + edema Diagnoses JOSUE on CKD stage 3 , on hemodialysis, likely progressed to ESRD Shock Acute respiratory failure MRSA bacteremia Anemia of chronic kidney disease Chronic kidney disease mineral bone disorder Plan: No urgent need for renal replacement therapy, will assess tomorrow TDC removed, continue line holiday for now Antibiotics per ID, on vancomycin Renal diet Wean off ventilator as able Maya Mcgee MD [facility] Please use Secure Chat to contact or [place] Physician Directory for mobile phone number to call during normal business hours. Please call [phone] (office) after 5pm or on weekends/holidays to contact on-call physician. documented in this encounter [facility] 07-19-2025 Note [facility] 07-18-2025 Note [facility] 07-18-2025 Note [facility] 07-18-2025 Note [facility] 07-17-2025 Note [facility] 07-17-2025 Note T11 :This report has been cancelled. [facility] 07-16-2025 Note [facility] 07-16-2025 Note [facility] 07-16-2025 Note [facility] 07-15-2025 Note [facility] 07-14-2025 Note [facility] 07-14-2025 Hospital Discharge instructions Katie Caballero MD - 07/14/2025 7:40 AM EDT CBC with diff/platelets, CMP, ESR, CRP (inflammation), and vancomycin level per HD site Toño Stewart MD - 07/17/2025 7:35 AM EDT Intravenous antibiotic orders Antibiotic(s): vancomycin IV per HD center Estimated stop date: ~08/29/25 Weekly labs needed: CBC with diff/platelets, CMP, ESR, CRP (inflammation) at HD if possible Peripheral blood cultures x 2 sets 1-2 weeks after completion of vancomycin Follow-up with Dr Stewart 08/22/25 at 11:30 AM, may need to be telemedicine Imaging requested: MRI lumbar spine without contrast in early 08/2025, likely will need to be local to her and TTE before end of abx Start PO doxycycline 100mg BID after IV vancomycin complete Toño Stewart MD [facility] - Infectious Diseases [address] [place] [address] Office [phone] documented in this encounter [facility] 07-14-2025 Note [facility] 07-13-2025 Note [facility] 07-13-2025 Note [facility] 07-12-2025 Note [facility] 07-12-2025 Note [facility] 07-12-2025 Note [facility] 07-12-2025 Note [facility] 07-11-2025 Note [facility] 07-11-2025 Note [facility] 07-11-2025 Procedure note Vascular & Interventional Radiology Provided By [facility] FOR PROVIDER USE ONLY: [facility] Interventional Radiology: [phone] [facility] Interventional Radiology: [phone] [facility] Interventional Radiology: [phone] 07/06 VIR physician contact: [phone]) FOR PATIENT AND PROVIDERS: [facility]: [phone] [email or web address] General Procedure: Procedure: Tunneled catheter placement Indication: JOSUE on CKD III secondary to ATN necessitating HD with recent MSSA bacteremia and septic shock. 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 History of HFrEF, HTN, Type II DM, hypothyroidism, and morbid obesity. Practitioner: Amber Fisher PA-C Supervising Physician: Chandrakant Oliva M.D. Sedation: Moderate The procedure, its risks and benefits were discussed in detail with the patient and/or family. Informed consent was obtained. Description: A right sided, 14Fr 28 cm permcath was placed with its tip terminating at the SVC/RA junction without evidence of complications. Patient tolerated the procedure well and was sent to the post procedure recovery area in stable condition. The catheter is ready for immediate use. Estimated Blood Loss: Trace Complications: None Full report to follow Amber Fisher PA-C [facility] (staff use only) Cosigned by Chandrakant Oliva MD at 07/11/2025 1:54 PM EDT Associated attestation - Chandrakant Oliva MD - 07/11/2025 1:54 PM EDT Agree with procedure that was performed. Thanks. Chandrakant Oliva M.D Interventional Radiologist Pager: [facility] Speech Language Pathology Modified Barium Swallow Study Procedure Notes - Final Patient: Misael Medina Date of : 1950 The Dynamic Imaging Grade of Swallowing Toxicity (DIGEST) was used to provide standardized impairment ratings of swallowing safety, efficiency, and overall function. Levels of impairment for DIGEST include normal (0), mild (1), moderate (2), severe (3), profound/life threatening (4). Today's evaluation revealed: Mild impairment in swallowing safety (Safety Grade = 1) No impairment in swallowing efficiency (Efficiency Grade = 0) Mild overall pharyngeal dysphagia (Overall Grade = 1) Impressions: Patient presents with Mild oral and Mild pharyngeal dysphagia, impacting safety more than efficiency of pharyngeal bolus clearance, characterized by inconsistent penetration of thin liquid. Penetration cleared from laryngeal vestibule spontaneously as pt swallowed or with a cued cough. No aspiration observed. No penetration or aspiration observed with nectar liquid or puree. Areas of impairment are delayed pharyngeal swallow and reduced supraglottic closure. See tx plan below for details. Of note, poor positioning and excessive pt movement limited view intermittently throughout study. Recommendations: PO Recommendations: Pureed, Thin liquid Strategies: Cough / clear throat (every few sips) Posture: Sit 90 degrees Food Presentation: Small bites Liquid Presentation: Small sips Medication Presentation: Crushed in puree, Whole in puree Amount of Supervision: Nursing / Staff supervision, 100% supervised, Physical assistance required (cues needed for strategy use) General Information: General Information Type of Study: Initial MBS Mental Status: Alert Oral Status: Permanent teeth Respiratory Status: Nasal cannula Feeding: Staff View: Lateral Study Limitations: Obstructed view, Poor positioning, Excessive patient movement Diet Prior to this Study: NPO Textures Used: Textures used: Thin spoon, Thin cup, Thin straw, [place] cup, [place] straw, [place] continuous straw, Pureed spoon Oral Phase: Oral Preparation/Oral Phase Oral Phase: Mild Lingual Control: Poor bolus form Lingual Coordination: Slow A-P transit Lingual Strength: Oral stasis, Superior tongue Residue Clearance: Spontaneous repeat swallow, Complete clearance Mastication: Not tested Pharyngeal Phase: Pharyngeal Phase: Mild Delay Swallow Inititated at: Laryng vestibule Anterior Excursion: Partial movement Supraglottic Closure: Penetration during Swallow, Laryngeal vestibule residue Pharyngeal Sensation: Cued to clear residue Esophageal Phase: Esophageal Phase Esophageal Phase: WFL (did not appear to interfere with oropharyngeal swallowing) Penetration: Penetration Present?: Yes Penetration Present Penetration Present?: Yes Penetration Characteristics: Trace amount, Deep, Before swallow, Inconsistent (moderate amount with continuous drinks) Consistencies Penetrated: Thin cup, Thin continuous straw Caused by: Pharyngeal swallow delay, Reduced supraglottic closure Response: No cough, Cued cough, Able to clear (cleared from laryngeal vestibule with spontaneous repeat swallow, additional penetration event cleared with cued cough) Strategies Used: Cough / clear throat Penetration-Aspiration Scale: 3 - Material enters the airway, remains above the vocal folds, but is not ejected from the airway. Penetration-Aspiration Scale: 4 - Material enters the airway, contacts the vocal folds and is ejected from the airway. Is there a Second Penetration?: Yes Second Penetration Characteristics: Trace amount, Shallow, Before swallow Consistencies Penetrated: Thin straw Caused by: Pharyngeal swallow delay, Reduced supraglottic closure Response: Able to clear Is there a Third Penetration?: No Penetration-Aspiration Scale: 3 - Material enters the airway, remains above the vocal folds, but is not ejected from the airway. Aspiration: Aspiration Present?: No Recommendation: Recommendations PO Recommendations: Pureed, Thin liquid Strategies: Cough / clear throat (every few sips) Posture: Sit 90 degrees Food Presentation: Small bites Liquid Presentation: Small sips Medication Presentation: Crushed in puree, Whole in puree Amount of Supervision: Nursing / Staff supervision, 100% supervised, Physical assistance required (cues needed for strategy use) Treatment Techniques: Laryngeal elevation exercise, Therapeutic trials, Thin, Mechanical soft, Solids Further Recommendations: Oral care TID, Assess for diet tolerance, Evlauate diet upgrade, MBS prior to D/C swallow strategies Skilled Therapy Needs: Are ST Skilled Therapy Services Needed After Discharge: Yes Intensity of ST Skilled Therapy: Up to 5 days per week Hemodialysis Catheter Insertion Note Patient Name: Misael Medina Admit Date: 8131220 MR #: [id number] : 1950 [place] Protocol: 1. Pre-procedure verification: - Correct patient, correct site, correct procedure (correct patient verified against two identifiers: name and date of ) - Consent form completed and signed: Yes - per - Informed consent risks: bleeding, pain, infection - Review of: Radiology images, scans, labs with appropriate identifiers (if applicable) - Any required blood products, implants, devices, and/or special equipment for the procedure (if applicable) 2. Site Markings - when appropriate: N/A 3. Time Out: Timeout occurred at the following time: 1510 (Includes validating the following: Correct patient, correct side/site marked and procedure to performed, correct position) Indication: Hemodialysis, ESRD Procedure Details: The patient was appropriately positioned, prepped with chlorhexidine and draped in the standard sterile fashion. The skin was anesthetized using a generous amount of 1% lidocaine. Following this, under ultrasound guidance, the left femoral vein was accessed and cannulated using a Cook needle. Adequate drawback of dark venous blood was noted and the syringe was subsequently removed. A flexible guidewire was then passed through the needle and into the vein. The needle was removed, and sequential dilation was accomplished with two dilators. Then, a previously flushed triple lumen trialysis catheter was placed over the guidewire and into the vein using a Seldinger technique. The wire was removed and all three lumens were checked for adequate drawback of venous blood and flushed until clear. The catheter was then sutured to the skin and a sterile dressing was placed. The patient tolerated this procedure well and without incident. A stat portable chest x-ray was ordered. Arterial Catheter Insertion Procedure Note Patient Name: Misael Medina Admit Date: 8131220 [id number] 1950 Sedation Plan: No Sedation [place] Protocol: 1. Pre-procedure verification: - Correct patient, correct site, correct procedure (correct patient verified against two identifiers: name and date of ) - H&P or H&P update complete and in medical record - Consent form completed and signed: Yes - Informed consent risks: bleeding, pain, infections, vascular compromise - Review of: Radiology images, scans, labs, pathology, biopsy reports with appropriate identifiers (if applicable) - Any required blood products, implants, devices, and/or special equipment for the procedure (if applicable) 2. Site Markings - when appropriate: Site marked by Licensed Independent Practitioner or other provider who is priviledged and credentialed to perform procedures 3. Time Out: Timeout occurred at the following time: 1509 (Includes validating the following: Correct patient, correct side/site marked and procedure to performed, correct position) Other: Hand Hygiene completed Procedure completed using maximum barrier precautions Indications: Hypotension, Blood draws, BP monitoring Procedure Details: The patient was appropriately positioned, draped, and prepped with chlorhexidine. This was allowed to dry completely. The skin overlying the surgical site was anesthetized with 1% lidocaine. The right radial artery was accessed and cannulated and a flexible guidewire was passed through the needle and into the artery. The needle was removed and exchanged for an arterial catheter noting pulsatile bright red blood. The catheter was then secured to the skin and connected to a pressure transducer. Ultrasound guidance was used during this procedure Estimated Blood Loss: Minimal Complications: None documented in this encounter [facility] 07-11-2025 Note [facility] [facility] 07-11-2025 Note [facility] 07-10-2025 Note [facility] 07-10-2025 Note [facility] 07-10-2025 Note [facility] 07-10-2025 Note [facility] 07-09-2025 Note [facility] 07-09-2025 Note [facility] 07-09-2025 Note [place] [facility] 07-08-2025 Note [facility] [facility] 07-08-2025 Note [place] [facility] 07-07-2025 Note [facility] 07-07-2025 Note [place] [facility] 07-06-2025 Note [place] [facility] 07[facility]06-2025 Note [place] [facility] 07-06-2025 Note [place] [facility] 07-05-2025 Note [facility] 07-05-2025 Note [place] [facility] 07[facility]05-2025 Note [place] [facility] 07[facility]05-2025 Note [place] [facility] 07-04-2025 Note [place] [facility] 07[facility]04-2025 Note [place] [facility] 07-04-2025 Note [place] [facility] 07-04-2025 Note [place] [facility] 07-03-2025 Note [place] [facility] 07[facility]03-2025 Note [place] [facility] 07-03-2025 Note [place] [facility] 07[facility]03-2025 Note [place] [facility] 07-03-2025 Note [place] [facility] 07-02-2025 Note [place] [facility] 07[facility]02-2025 Note [place] [facility] 07[facility]02-2025 Note [place] [facility] 07-02-2025 Note [place] [facility] 07-01-2025 Note [place] [facility] 07-01-2025 Note [place] [facility] 07-01-2025 Note [place] [facility] 06-30-2025 Note [place] [facility] 06-30-2025 Note [place] [facility] 06-30-2025 Note [place] [facility] 06-30-2025 Note [place] [facility] 06-30-2025 Note [place] [facility] 06-29-2025 Note [facility] 06-28-2025 Emergency department Note [facility] to write orders for patient upon dc from cc unit [id number] documented in this encounter [facility] 06-28-2025 History and physical note History and Physical Patient Name:Misael Medina :1950 [facility] to take over care when transferred out of the ICU Perpetual Assessment: Misael Medina is a 75 y.o. female with a past medical history of HFrEF, ESRD, DMII, HTN, HLD, morbid obesity who initially presented to [facility] on 06/25/25 after suffering a mechanical fall with LOC. Her course was complicated by respiratory failure requiring intubation on 06/25/25, MRSA bacteremia requiring HD line removal, and symptomatic bradycardia. She was transferred to [facility] for management of cardiogenic and septic shock. Assessment and Plan: Acute hypoxic respiratory failure Multifactorial, secondary to shock, effusion, edema - CXR at [facility] with pulmonary edema, no focal infiltrates, right pleural effusion - Repeat CXR pending - Mixed acidosis on admission to [facility], respiratory rate increased - Not currently requiring sedation, maintain RASS -1 to 1 - Titrate ventilator for SpO2 >88%, SAT/SBT as able Cardiogenic Shock Acute on chronic HFrEF Unclear etiology - Previous EF reportedly 35% in Nov 2024, now down to 20% per TTE 06/25 with moderately dilated RV - Home medications: carvedilol, imdur, hydralazine, isordil, furosemide dapagliflozin propanediol - holding all in acute setting - DESTIN at [facility] w/ Sepsis, Resolved Shock MRSA Bacteremia Leukocytosis with Bandemia Blood cultures positive at [facility] 06/25, thought to be related to permacath - since removed - Previously required vasopressor support and had elevated lactate at [facility] - Lactate normal on admission to [facility] - Permacath removal 06/26 per [facility] - Thoracentesis appears transudative, follow up [facility] cultures - Sputum culture from [facility] appears negative - Urine culture negative at [facility] - Repeat blood cultures drawn at [facility] 06/28, continue follow up - Continue vancomycin - Will need DESTIN to evaluate for vegetation - ID consult pending Sinus Bradycardia Reports of Afib at [facility] Unclear etiology - Hold home carvedilol - Started on isuprel at [facility] - Changed to dobutamine on arrival to [facility] - Stable blood pressure with HR 40-50's SVC thrombus - Reports of SVC thrombus noted on DESTIN, but I cannot find these reports in the paper documents sent to us and the images cannot be pushed over to us either. Will call in the AM to try to get these results - Continue heparin gtt I the meantime - HOLD PLACING LINES UNTIL FURTHER INFORMATION OBTAINED Right Pleural effusion Suspect secondary to acute HFrEF, volume overload - S/p thoracentesis with 850ml fluid removed - Appears exudative - Follow fluid studies from [facility] Syncopal Event Mechanical Fall with +LOC Reportedly has fallen three different times in the past week - CTH and cervical spine at [facility] nonacute - No abnormal bruising or deformities noted - Supportive care Acute Encephalopathy Secondary to shock state, sedatives, infection, recent fall - CT head at [facility] nonacute - Wean sedation as able - Treatment of infection as above ESRD Historical since March 2025, with dialysis T/R/Sat - Right permacath removed 06/26 per [facility] - Creatine 6.51 on admission, electrolytes stable - Nephrology consult for iHD - Currently on a line holiday Aortic Valve Stenosis Per history - Monitor volume status closely - Avoid over-diuresis/aggressive volume removal with HD Unplanned Weight Loss Failure to Thrive 70lb weight loss since 10/2024 - Per family, does not eat very much at home but does drink water throughout the day - Pca consulted for tube feeding evaluation Chronic anemia Suspect secondary to ESRD, baseline 10-11 per reports - Presented with Hgb 10.5 - No outward signs of bleeding - Trend CBC daily, expand w/u pending trajectory Hypothyroidism Per history - TSH/FT4 pending - Continue levothyroxine DMII Historical - Home meds: - Hgb A1c 6.6 on admission - SSI +/- basal for BG goal <180 HTN Historical - Home meds: carvedilol, imdur - Afterload plan outlined above HLD Historical - Home meds: ASA, atorvastatin - Continue home ASA and statin Morbid obesity Historical - Lifestyle modifications Critical Care Checklist : updated 06/28/25 SBT: Daily SAT: Daily,RASS Goal -1 to +1 Order updated yes, Current Level 2: analgesia with fentanyl IVP sedation with propofol Delirium: CAM-ICU negative (no delirium) Restraints: Yes, to promote healing and minimize disruption of treatment and Order updated Bowel Regimen: Senna-Docusate and Last BM BL[facility] [place]OOKER Prophylaxis: DVT: Heparin infusion, (report of SVC thrombus and afib at [facility]), GI: Pepcid, (PPX due to ventilator) , Vent Dental/Oral Hygiene and HOB >30 Lines/Tubes: right Femoral CVC (placed 06/25) Jimenez (placed 06/25) Accurate output in HF patient with ongoing IV diuresis, unable to be measured by other means Antibiotics: Vancomycin, Indication (MRSA bacteremia), and End Date (TBD) Mobility goal: Bedrest due to instability Nutrition: Dietitian consulted Blood Glucose: Sliding scale insulin Sleep Hygiene: NA Code Status: No Order Family Update: Family updated at bedside following admission On 06/28/25, Code Status was discussed with the patient's spouse. After discussion, the patient was determined to be Full Code After discussion with EM pharmacy technology instructor, medication reconciliation was complete. The patient's Legal Next of Kin has been identified and an Advanced Care Planning (ACP) Note has been documented Admitted with these risk variables:Conventional Mechanical Ventilation, Acute Respiratory Failure, Cardiac Arrhythmia, CHF, Shock, Sepsis, and Chronic Kidney Disease. Please see assessment and plan for further details. Plan discussed with Chief Complaint: Undifferentiated Shock History of Presenting Illness: History obtained from family and chart review. Per family, patient's issues started in October 2024 when she developed pneumonia. Since that time, she has lost 70lbs and declined in physical function. In February/March, she developed an infection related to her toe which apparently led to her renal failure and need for dialysis as well as her diagnosis of heart failure. This past week, she has fallen several times including one time where her legs gave out on her and the time preceding this admission where she was on the toilet and bent over to grab something and then fell on her head. Her heard her fall and when he arrived, she was out of it for 30 seconds to one minute. He called EMS and before they arrived, she regained consciousness. She was then taken to [place] as above. No sick contacts. Did have some urinary frequency prior to admission. No productive cough or other complaints. Has not been eating well for some time and has lost a significant amt of weight as above. She reportedly gets around with her rollater fairly well though. Review of Systems: [] All other systems were reviewed and negative except for those as specified in History of Present illness. [x] Unable to obtain ROS secondary to clinical circumstances Physical Exam: PHYSICAL EXAM: General appearance: chronically ill appearing Head: atraumatic, normocephalic Mouth: mucous membranes moist, pharynx normal without lesions Eyes/Pupils: pupils equal and reactive, extraocular eye movements intact Neck: supple, no significant adenopathy Chest: clear to auscultation, no wheezes, rales or rhonchi, symmetric air entry CV: sinus bradycardia, no murmer Abdomen: soft, non-tender, without masses or organomegaly Extremities: peripheral pulses normal, no pedal edema, no clubbing or cyanosis Skin: pale, no rashes, no suspicious skin lesions noted; chronic appearing wounds to BLE - see media tab Neurological: alert, oriented, normal speech, no focal findings or movement disorder noted Past Medical, Surgical, Family, and Social History: Past Medical History: Diagnosis Date Arthritis Cataracts, bilateral Colon polyp 2011 Tubular adenoma Diabetes (HCC) Endometrial cancer (HCC) 08/2014 s/p Hysterectomy and External beam radiation as well as internal radiation, no chemo...ONCOLOGIST: [facility] [place] (Dr. Ryan) Hyperlipidemia Hypertension Morbid obesity (HCC) Thyroid disease Past Surgical History: Procedure Laterality Date CHOLECYSTECTOMY 1997 COLONOSCOPY 06/02/2012 tubular adenoma removal...Dr. Funez COLONOSCOPY 06/16/2017 Normal....Dr. 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 See my same day note for edits and additions. documented in this encounter [facility] 06-28-2025 Note [facility] 06-25-2025 Note Acceptable Specimen? Acceptable Specimen(Evaluation not needed) Gram Stain No organisms seen Rare White Blood Cells [facility] Comment on above: Performed By: #### M 100.2400, M100.1999 ####[facility] [id number] [facility]. [place], [place], [id number] 06-25-2025 Radiology Diagnostic study note [facility] Imaging Services [address] [place], [place] [id number] Abdomen/Pelvis without Cont MR#: [id number] Acct: [id number] Name: MISAEL MEDINA Rep #: [id number] : 1950 F 75 From: Briana Kaur MD PCP: Dr. Donal Will MD Status: [facility] Study:Abdomen/Pelvis without Cont Date of Exa m: 06/25/25 Exam# [id number] Ordering Dr: Priscila Rushing MD PROCEDURE: ABDOMEN/PELVIS WITHOUT CONT 06/25/2025 REASON FOR EXAM: PAIN TECHNIQUE: ABDOMEN/PELVIS WITHOUT CONT Noncontrast technique limits evaluation of the abdominal and pelvic viscera. Coronal and Sagittal reconstruction series were provided. One or more dose reduction techniques were used (e.g., Automated exposure control, adjustment of the mA and/or kV according to patient size, use of iterative reconstruction technique). RADIATION DOSE SUMMARY: CTDlvol: 33 mGy DLP: 1321 mGycm COMPARISON: No FINDINGS: Moderate right effusion, adjacent compressive atelectasis. Under aerated left lung base. Cardiac enlargement. Cirrhotic liver morphology. Status post cholecystectomy. Normal pancreas, spleen, adrenal glands, kidneys. Hydronephrosis. Decompressed bladder. Status post hysterectomy. Presacral edema. No retroperitoneal or pelvic adenopathy. No free air. Small ascites. Nonobstructed bowel. Normal appendix. Diverticulosis. No acute large bowel findings. Status post right THR. Lumbar spine degeneration. Abdominal wall edema. Pelvic floor laxity. Transitional anatomy. At the lumbosacral junction, there is a chronic appearing vertebral body compression deformity. CT/Abdomen/Pelvis without Cont IMPRESSION: Possible third-spacing. Reading Location: [place] [address] CC: Dr. Donal Will MD; Dr. Love Rushing MD ~ Wellness Manager: Signed [facility] 06-25-2025 Radiology Diagnostic study note [facility] Imaging Services [address] [place] [address] CTA Chest W/WO Contrast MR#: [id number] Acct: [id number] Name: MISAEL MEDINA Rep #: [id number] : 1950 F 75 From: Briana Kaur MD PCP: Dr. Donal Will MD Status: REG ER Study:CTA Chest W/WO Contrast Date of Exam: 06/25/25 Exam# [id number] Ordering Dr: Priscila Rushing MD PROCEDURE: CTA CHEST W/WO CONTRAST 06/25/2025 REASON FOR EXAM: SYNCOPE, HYPOXIC ON ARRIVAL TECHNIQUE: CTA CHEST W/WO CONTRAST Multiplanar Sagittal and Coronal images were obtained. One or more dose reduction techniques were used (e.g., Automated exposure control, adjustment of the mA and/or kV according to patient size, use of iterative reconstruction technique). RADIATION DOSE SUMMARY: CTDlvol: 40 mGy DLP: 600 mGycm COMPARISON: 10/30/2024 FINDINGS: Unremarkable base of neck and axilla. Thoracic spine degeneration. Normal esophagus. Cardiac enlargement. Coronary artery calcifications. No aortic dissection. No pulmonary embolism. No acute chest wall findings. Status post cholecystectomy. Small ascites. No acute upper abdominal findings otherwise noted. Mild cirrhotic morphology. Central airways are patent. Moderate right-sided effusion, adjacent compressiveatelectasis. Under aerated lungs overall. CT/CTA Chest W/WO Contrast IMPRESSION: Moderate right effusion, adjacent lung compression. No embolism, dissection, or pneumonia. Reading Location: [place] [address] CC: Dr. Donal Will MD; Dr. Love Rushing MD ~ Wellness Manager: Signed [facility] 06-25-2025 Radiology Diagnostic study note [facility] Imaging Services [address] [place] [id number] Spine Cervical without Contras MR#: [id number] Acct: [id number] Name: MISAEL MEDINA Rep #: [id number] : 1950 F 75 From: Briana Kaur MD PCP: Dr. Donal Will MD Status: REG ER Study:Spine Cervical without Contras Date of Exam: 06/25/25 Exam# [id number] Ordering Dr: Priscila Rushing MD PROCEDURE: SPINE CERVICAL WITHOUT CONTRAS 06/25/2025 REASON FOR EXAM: HIT HEAD, FALL TECHNIQUE: SPINE CERVICAL WITHOUT CONTRAS Coronal and Sagittal reconstruction series were provided. One or more dose reduction techniques were used (e.g., Automated exposure control, adjustment of the mA and/or kV according to patient size, use of iterative reconstruction technique. RADIATION DOSE SUMMARY: CTDlvol: 26 mGy DLP: 538 mGycm COMPARISON: No FINDINGS: Cervical spine scoliosis and degeneration. No acute fracture or dislocation. No soft tissue injury. No apical pneumothorax. Large layering right-sided effusion. CT/Spine Cervical without Contras IMPRESSION: No acute cervical spine injury. Reading Location: [place] [address] CC: Dr. Donal Will MD; Dr. Love Rushing MD ~ Wellness Manager: Signed [facility] 06-25-2025 Radiology Diagnostic study note [facility] Imaging Services [address] [place] [id number] Brain/Head without Contrast MR#: [id number] Acct: [id number] Name: MISAEL MEDINA Rep #: [id number] : 1950 F 75 From: Briana Kaur MD PCP: Dr. Donal Will MD Status: REG ER Study:Brain/Head without Contrast Date of Exa m: 06/25/25 Exam# [id number] Ordering Dr: Priscila Rushing MD PROCEDURE: BRAIN/HEAD WITHOUT CONTRAST 06/25/2025 REASON FOR EXAM: HIT HEAD, SYNCOPE TECHNIQUE: BRAIN/HEAD WITHOUT CONTRAST Coronal and Sagittal reconstruction series were provided. One or more dose reduction techniques were used (e.g., Automated exposure control, adjustment of the mA and/or kV according to patient size, use of iterative reconstruction technique. RADIATION DOSE SUMMARY: CTDlvol: 45 mGy DLP: 847 mGycm COMPARISON: No FINDINGS: Old left basal ganglia infarct, extension into the marinelli radiata and centrum semiovale. No acute abnormal brain densities. No intracranial hemorrhage. No hydrocephalus or midline shift. Small right anterior scalp swelling. Bilateral lens extraction. Clear sinuses. CT/Brain/Head without Contrast IMPRESSION: No acute intracranial findings Reading Location: [place] [address] CC: Dr. Donal Will MD; Dr. Love Rushing MD ~ Wellness Manager: Signed [facility] 05-31-2025 Note Date of Procedure 05/31/2025 [place] Protocol Safety Checklist A moment of CARE [...] Procedure Medications None. Home Going Prescription None. [facility] 05-31-2025 Instructions Sergo Chirinos MD, PhD - [...] than dabbing lightly with a tissue An tini-met-kjmxhwm pain reliever (i.e. Tylenol) can be used [...] If it is after hours please call [phone] which will give instructions on how to reach the eye doctor supervisory air intercept controller documented in this encounter [facility] 05-31-2025 Note Date of Procedure 05/31/2025. Sustainability Consultant Information Capsule Filler: NEENA. OCT Macula Interpretation Right Eye Normal foveal contour. Left Eye Abnormal foveal contour. Findings include IS/OS junction, Atrophy; Negative for Intraretinal fluid, Subretinal fluid. [facility] 05-31-2025 History of Present illness Narrative Patient of Dr. Chirinos 0. 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 Liz, both eyes done end 2022 Plan: Now on dialysis but renal [...] Sergo Chirinos MD documented in this encounter [facility] 05-31-2025 Note HNO ID: [id number] Author: SERGO CHIRINOS MD, PhD Service: ? Author Type: Physician Type: Progress Notes Filed: 05/31/2025 12:06 Note Text: Patient of Dr. Chirinos 0. 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 Liz, both eyes done end 2022 Plan: Now on dialysis but renal [...] of its relevant components. Sergo Chirinos MD [facility] 03-23-2025 Consult note [facility] 03-23-2025 Discharge summary Note Date/Time March 23, 2025 11:24am [facility] Medical Records Department [address] [place] [address] Transfer to [facility] MR#: [id number] Acct: [id number] Name: MISAEL MEDINA Rep #:[id number] : 1950 74 From: Fitz Ryan DO PCP: Dr. Donal Will MD Status:ADM IN Certification of patient admission REQUIRED AT TIME OF ADMISSION. I CERTIFY THAT POST-HOSPITAL ECF SERVICES ARE REQUIRED TO BE GIVEN ON AN IN-PATIENT BASIS BECAUSE OF THE ABOVE NAMED PATIENT'S NEED FOR [facility] CARE ON A CONTINUING BASIS FOR THE CONDITION(S) FOR WHICH HE/SHE WAS RECEIVING IN-PATIENT HOSPITAL SERVICES PRIOR TO HIS/HER TRANSFER TO THE [facility]. 03/23/25 1124<Electronically signed by Fitz Ryan DO> [...] nephrology following. kidney biopsy performed. DW Dr. Gupta, preliminary looks like ATN. (2) Congestive heart [...] Provider: Fitz Ryan Primary Care Provider: Donal Will Consulting Providers: Milton Muñoz; Seth Garnica; Bandar Linares; Joao Francois; Lorraine Gupta; Princess Coronado; Fitz Ryan; Oswald Bonds; Aparna Mabry Instructions Patient Instructions: FLACO counselor aid Instructions for Kidney Biopsy Discharge Orders/Prescriptions Prescriptions: [...] UP YET Referrals / Follow Up: Donal Will MD [Primary Care Provider] - Disposition Disposition (needs filled in before D/C Order can be placed): [facility] (1) Acute on chronic renal failure [...] heart failure 03/23/25 1124 <Electronically signed by Fitz Ryan DO> Cosigner Signature (if applicable): CC: DPM Dr. Princess Coronado; Dr. Seth Garnica DO; Dr. Donal Will MD; Dr. Fitz Ryan DO; Dr. Lorraine Gupta MD; Dr. Joao Francois MD; Dr. Bandar Linares MD; Dr. Milton Muñoz MD; Dr. Aparna Mabry MD; Dr.Robert Cammie MD ~ [facility] Work Phone: [phone]) 456-285105-09-2025 Discharge summary Author Fitz Ryan [facility] Note Date/Time March 23, 2025 11:29a [facility] Medical Records Department [address] [place] [address] Discharge Summary 03/23/25 1124 MR#: [id number] Acct: [id number] Name: MISAEL MEDINA Rep #:[id number] : 1950 74 From: Fitz Ryan DO PCP: Dr. Donal Will MD Status:ADM IN Location: [place] [address] Providers Date of Admission: 03/13/25 Primary Care Physician: Donal Will MD Consultations 03/13/25 19:49 Consult: Cardiology Routine Consulting Provider: Bandar Linares Reason for Consult: CHF with elevated troponin EMERGENT Consult: No MD Notified: Yes Date Notified: 03/13/25 Time Notified: 18:38 Method of Notification: Verbal Consult: Nephrology Routine Consulting Provider: Lorraine Gupta Reason for Consult: Acute renal failure EMERGENT Consult: No MD Notified: Yes Date Notified: 03/13/25 Time Notified: 23:40 Method of Notification: Answering Service 03/15/25 09:41 Consult: General Surgery Routine Consulting Provider: Joao Francois Reason for Consult: tunneled HD line placement EMERGENT Consult: No Notified: Yes Date Notified: 03/15/25 Time Notified: 10:05 Method of Notification: Text 03/15/25 19:23 Consult: Onc/Wound/healthcare educator Routine Comment: Comments:: Right great toe necrotic ulcer 03/16/25 09:36 Consult: Podiatry Routine Consulting Provider: Princess Coronado Reason for Consult: right great toe [...] nephrology following. kidney biopsy performed. DW Dr. Gupta, preliminary looks like ATN. (2) Congestive heart [...] Provider: Fitz Ryan Primary Care Provider: Donal Will Consulting Providers: Milton Muñoz; Seth Garnica; Bandar Linares; Joao Francois; Lorraine Gupta; Princess Coronado; Fitz Ryan; Oswald Bonds; Aparna Mabry Instructions Patient Instructions: FLACO counselor aid Instructions for Kidney Biopsy Discharge Orders/Prescriptions Prescriptions: [...] UP YET Referrals / Follow Up: Donal Will MD [Primary Care Provider] - Disposition Disposition (needs filled in before D/C Order can be placed): [facility] Charges/Coding Visit Charges Inpatient E&M: 45094 Disch Hosp >30min 03/23/25 1129 <Electronically signed by Fitz Ryan DO> Cosigner Signature (if applicable): CC: Dr. Donal Will MD; Dr. Fitz Ryan DO~ Signed [facility] Work Phone: 1(289) 133-848505-09-2025 Progress note Author Fitz Ryan [facility] Note Date/Time March 23, 2025 11:17a m [facility] Medical Records Department [address] [place] [address] Progress Note - Hospitalist 03/23/25 0740 MR#: [id number] Acct: [id number] Name: MISAEL MEDINA Rep #:[id number] : 1950 74 From: Fitz Ryan DO PCP: Dr. Donal Will MD Status:ADM IN Location: [place] [address] Reason for Visit Reason for Visit: Diagnoses [...] unspecified (03/13/25) Hemorrhage, not elsewhere classified (03/13/25) [facility] (current) use of insulin (03/13/25) Subjective Subjective [...] (moderate) Chronic kidney disease stage 3 subtype: [id number] (GFR 45-59) Qualified Code(s): N17.9 - Acute kidney failure, unspecified; N18.31 - Chronic kidney disease, stage 3a PLAN: Tunneled dialysis cath placed 03/16. Now on HD nephrology following. kidney biopsy performed. KEVIN Gupta, preliminary looks like ATN. (2) Congestive heart [...] recovery. VTE prophylaxis: SQ heparin. Disposition: to [facility]. 03/23/25 1117 <Electronically signed by Fitz Ryan DO> Cosigner Signature (if applicable): CC: ~ Signed [facility] Work Phone: 1(904) 318-207005-09-2025 Discharge summary [facility] Medical Records Department [address] [place] [address] Discharge Summary 03/23/25 1124 MR#: [id number] Acct: [id number] Name: MISAEL MEDINA Rep #:[id number] : 1950 74 From: Fitz Ryan DO PCP: Dr. Donal Will MD Status:ADM IN Location: [place] [address] Providers Date of Admission: 03/13/25 Primary Care Physician: Donal Will MD Consultations 03/13/25 19:49 Consult: Cardiology Routine Consulting Provider: Bandar Linares Reason for Consult: CHF with elevated troponin EMERGENT Consult: No Notified: Yes Date Notified: 03/13/25 Time Notified: 18:38 Method of Notification: Verbal Consult: Nephrology Routine Consulting Provider: Lorraine Gupta Reason for Consult: Acute renal failure EMERGENT Consult: No Notified: Yes Date Notified: 03/13/25 Time Notified: 23:40 Method of Notification: Answering Service 03/15/25 09:41 Consult: General Surgery Routine Consulting Provider: Joao Francois Reason for Consult: tunneled HD line placement EMERGENT Consult: No Notified: Yes Date Notified: 03/15/25 Time Notified: 10:05 Method of Notification: Text 03/15/25 19:23 Consult: Onc/Wound/healthcare educator Routine Comment: Comments:: Right great toe necrotic ulcer 03/16/25 09:36 Consult: Podiatry Routine Consulting Provider: Princess Coronado Reason for Consult: right great toe wound EMERGENT Consult: No Notified: Yes Date Notified: 03/16/25 Time Notified: [...] on HD nephrology following. kidney biopsy performed. KEVIN Gupta, preliminary looks like ATN. (2) Congestive heart [...] Enterococcus casseliflavus (D) Enterococcus avium Gram positive [place] 03/14/25 18:00 Urine Catheter - Catheter Urine [...] Provider: Fitz Ryan Primary Care Provider: Donal Will Consulting Providers: Milton Muñoz; Seth Garnica; Bandar Linares; Joao Francois; Lorraine Gupta; Princess Coronado; Fitz Ryan; Oswald Bonds; Aparna Mabry Instructions Patient Instructions: RAD counselor aid Instructions for Kidney Biopsy Discharge Orders/Prescriptions Prescriptions: [...] UP YET Referrals / Follow Up: Donal Will MD [Primary Care Provider] - Disposition Disposition (needs filled in before D/C Order can be placed): [facility] Charges/Coding Visit Charges Inpatient E&M: 77428 Disch Hosp >30min 03/23/25 1129 Cosigner Signature (if applicable): CC: Dr. Donal Will MD; Dr. Fitz Ryan DO~ Signed [facility]05-09-2025 Discharge summary [facility] Medical Records Department [address] [place] [address] [facility] Care MR#: [id number] Acct: [id number] Name: MISAEL MEDINA Rep #:[id number] : 1950 74 From: Fitz Ryan DO PCP: Dr. Donal Will MD Status:ADM IN Certification of patient admission REQUIRED AT TIME OF ADMISSION. I CERTIFY THAT POST-HOSPITAL ECF SERVICES ARE REQUIRED TO BE GIVEN ON AN IN-PATIENT BASIS BECAUSE OF THE ABOVE NAMED PATIENT'S NEED FOR [facility] CARE ON A CONTINUING BASIS FOR THE CONDITION(S) FOR WHICH HE/SHE WAS RECEIVING IN-PATIENT HOSPITAL SERVICES PRIOR TO HIS/HER TRANSFER TO THE ECF. 03/23/25 1124 Diet Diet Order/Speech Therapy: 03/20/25 [...] on HD nephrology following. kidney biopsy performed. KEVIN Gupta, preliminary looks like ATN. (2) Congestive heart [...] Provider: Fitz Ryan Primary Care Provider: Donal Will Consulting Providers: Milton Muñoz; Seth Garnica; Bandar Linares; Joao Francois; Lorraine Gupta; Princess Coronado; Fitz Ryan; Oswald Bonds; Aparna Mabry Instructions Patient Instructions: FLACO counselor aid Instructions for Kidney Biopsy Discharge Orders/Prescriptions Prescriptions: [...] UP YET Referrals / Follow Up: Donal Will MD [Primary Care Provider] - Disposition Disposition (needs filled in before D/C Order can be placed): [facility] (1) Acute on chronic renal failure [...] Cosigner Signature (if applicable): CC: DPM Dr. Princess Coronado; Dr. Seth Garnica DO; Dr. Donal Will MD; Dr. Fitz Ryan DO;Dr. Lorraine Gupta MD; Dr. Joao Francois MD; Dr. Bandar Linares MD; Dr. Milton Muñoz MD; Dr. Aparna Mabry MD; Dr.Robert Cammie MD ~ [facility]05-09-2025 [facility]05-09-2025 Progress note [facility] Medical Records Department [address] [place] [address] Progress Note - Hospitalist 03/23/25 0740 MR#: [id number] Acct: [id number] Name: MISAEL MEDINA Rep #:[id number] : 1950 74 From: Fitz Ryan DO PCP: Dr. 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 Now on HD nephrology following. kidney biopsy performed. DW Dr. Gupta, preliminary looks like ATN. (2) Congestive heart [...] recovery. VTE prophylaxis: SQ heparin. Disposition: to [facility]. 03/23/25 1117 Cosigner Signature (if applicable): CC: ~ Signed [facility]05-08-2025 Progress note Author Fitz Ryan [facility] Note Date/Time March 22, 2025 4:35pm [facility] Medical Records Department [address] [place] [address] Progress Note - Hospitalist 03/22/2528 MR#: [id number] Acct: [id number] Name: MISAEL MEDINA Rep #:[id number] : 1950 74 From: Fitz Rayn DO PCP: Dr. Donal Will MD Status:ADM IN Location: [place] [address] Reason for Visit Reason for Visit: Diagnoses [...] 3b (03/13/25) Chronic kidney disease, unspecified (03/13/25) [facility] (current) use of insulin (03/13/25) Subjective Subjective [...] (moderate) Chronic kidney disease stage 3 subtype: [id number] (GFR 45-59) Qualified Code(s): N17.9 - Acute kidney failure, unspecified; N18.31 - Chronic kidney disease, stage 3a PLAN: Tunneled dialysis cath placed 03/16. Now on HD nephrology following. kidney biopsy performed. KEVIN Gupta, preliminary looks like ATN. (2) Congestive heart [...] to SNF. Charges/Coding Visit Charges Inpatient E&M: 85865 Subs Hosp L2 03/22/25 4230 <Electronically signed by Fitz Ryan DO> Cosigner Signature (if applicable): CC: ~ Signed [facility] Work Phone: 1(212) 750-382905-08-2025 Progress note [facility] Medical Records Department [address] [place] [address] Progress Note - Hospitalist 03/22/25827 MR#: [id number] Acct: [id number] Name: MISAEL MEDINA Rep #:[id number] : 1950 74 From: Fitz Ryan DO PCP: Dr. 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 Now on HD nephrology following. kidney biopsy performed. DW Dr. Gupta, preliminary looks like ATN. (2) Congestive heart [...] to SNF. Charges/Coding Visit Charges Inpatient E&M: 44906 Subs Hosp L2 03/22/25 1635 Cosigner Signature (if applicable): CC: ~ Signed [facility]05-08-2025 Progress note Author Lorraine Gupta [facility] Note Date/Time March 22, 2025 1:15pm [facility] Medical Records Department [address] [place] [address] Progress Note - Nephrology 03/22/25 1314 MR#: [id number] Acct: [id number] Name: IMSAEL MEDINA Rep #:[id number] 43 : 1950 74 From: Lorraine reyez MD PCP: Dr. Donal Will MD Status:ADM IN Location: [place] [address] Subjective Subjective no new events Objective Data [...] (moderate) Chronic kidney disease stage 3 subtype: [id number] (GFR 45-59) Qualified Code(s): N17.9 - Acute kidney failure, unspecified; N18.31 - Chronic kidney disease, stage 3a PLAN: JOSUE superimposed on CKD stage IIIb. Baseline creatinine around 1.7 mg/dL as of December 2024. Renal ultrasound no hydronephrosis. serologies negative called and spoke to pathology at [facility]. mostly ATN. IF negative. no profileration. HD MWF schedule for now she says she is not making much urine HD tomorrow dc plans 03/22/25 1315 <Electronically signed by Lorraine Gupta MD> Cosigner Signature (if applicable): CC: ~ Signed [facility] Work Phone: 1(172) 719-716205-08-2025 Progress note [facility] Medical Records Department [address] [facility] [place] [address] Progress Note - Nephrology 03/22/251313 MR#: [id number] Acct: [id number] Name: MISAEL MEDINA Rep #:[id number] 43 : 1950 74 From: Lorraine reyez MD PCP: Dr. Donal Will MD Status:ADM IN Location: [place] [address] Subjective Subjective no new events Objective Data [...] (moderate) Chronic kidney disease stage 3 subtype: nwooc4t (GFR 45-59) Qualified Code(s): N17.9 - Acute kidney failure, unspecified; N18.31 - Chronic kidney disease, stage 3a PLAN: JOSUE superimposed on CKD stage IIIb. Baseline creatinine around 1.7 mg/dL as of December 2024.Renal ultrasound no hydronephrosis. serologies negative called and spoke to pathology at [facility]. mostly ATN. IF negative. no profileration. HD MWF schedule for now she says she is not making much urine HD tomorrow dc plans 03/22/25 1315 Cosigner Signature (if applicable): CC: ~ Signed [facility]05-08-2025 Progress note Author Oswald Bonds [facility] Note Date/Time March 22, 2025 10:58a m [facility] Medical Records Department [address] [place] [address] Progress Note - Infect Disease 03/22/25 1051 MR#: [id number] Acct: [id number] Name: MISAEL MEDINA Renée Rep #:[id number] 65 : 1950 74 From: Oswald mcdonald MD PCP: Dr. Donal Will MD Status:ADM IN Location: [place] [address] Physical Exam Narrative Feeling ok, no fever, pain controlled, no n/v/d. Const alert and no apparent distress General Appearance: cooperative Resp normal air movement and clear to auscultation bilaterally Cardio regular rate and regular rhythm GI soft to palpation, non-tender and non-distended Skin Skin Narrative: no new rash ID ID: Route of nutrition/ use of supplements: [] Nutritional Intake: [] IV Site: [] Jimenez Catheter: [] Assessment & Plan Assessment/Plan (1) [...] mellitus with diabetic polyneuropathy: QUALIFIERS: Diabetes mellitus assisted insulin use: with assisted use Qualified Code(s): E11.42 - Type 2 diabetes mellitus with diabetic polyneuropathy; Z79.4 - MCC (current) use of insulin (3) Acute on chronic renal failure: QUALIFIERS: Acute renal failure type: unspecified Chronic kidney disease stage: stage 3 (moderate) Chronic kidney disease stage 3 subtype: stage 3a (GFR 45-59) Qualified Code(s): N17.9 - Acute kidney failure, unspecified; N18.31 - Chronic kidney disease, stage 3a 03/22/25 1058 <Electronically signed by Oswald Bonds MD> Cosigner Signature (if applicable): CC: ~ Signed [facility] Work Phone: 1(216) 775-347305-08-2025 Progress note [facility] Medical Records Department [address] [place] [address] Progress Note - Infect Disease 03/22/25 105 MR#: [id number] Acct: [id number] Name: MISAEL MEDINA Rep #:[id number] 65 : 1950 74 From: Oswald mcdonald MD PCP: Dr. Donal Will MD Status:ADM IN Location: [place] [address] Physical Exam Narrative Feeling ok, no fever, pain controlled, no n/v/d. 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 (3) Acute on chronic renal failure: QUALIFIERS: Acute renal failure type: unspecified Chronic kidney disease stage: stage 3 (moderate) Chronic kidney disease stage 3 subtype: stage 3a (GFR 45-59) Qualified Code(s): N17.9 - Acute kidneyfailure, unspecified; N18.31 - Chronic kidney disease, stage 3a 03/22/25 1058 Cosigner Signature (if applicable): CC: ~ Signed [facility]05-07-2025 Progress note Author Lorraine Gupta [facility] Note Date/Time March 21, 2025 6:11pm [facility] Medical Records Department [address] [place] [address] Progress Note - Nephrology 03/21/251809 MR#: [id number] Acct: [id number] Name: MISAEL MEDINA Rep #:[id number] 64 : 1950 74 From: Lorraine reyez MD PCP: Dr. Donal Will MD Status:ADM IN Location: [place] [address] Subjective Subjective seen on HD today Objective [...] (moderate) Chronic kidney disease stage 3 subtype: [id number] (GFR 45-59) Qualified Code(s): N17.9 - Acute kidney failure, unspecified; N18.31 - Chronic kidney disease, stage 3a PLAN: JOSUE superimposed on CKD stage IIIb. Baseline creatinine around 1.7 mg/dL as of December 2024. Renal ultrasound no hydronephrosis. serologies negative called and spoke to pathology at [facility]. mostly ATN. IF negative. no profileration. admit to [facility] as JOSUE placement in progress HD today see orders 03/21/251810 <Electronically signed by Lorraine Gupta MD> Cosigner Signature (if applicable): CC: ~ Signed [facility] Work Phone: 1(491) 790-827105-07-2025 Progress note [facility] Medical Records Department [address] [place] [address] Progress Note - Nephrology 03/21/251809 MR#: [id number] Acct: [id number] Name: MISAEL MEDINA Rep #:[id number] 64 : 1950 74 From: Lorraine reyez MD PCP: Dr. Donal Will MD Status:ADM IN Location: [place] [address] Subjective Subjective seen on HD today Objective [...] (moderate) Chronic kidney disease stage 3 subtype: aklca3b (GFR 45-59) Qualified Code(s): N17.9 - Acute kidney failure, unspecified; N18.31 - Chronic kidney disease, stage 3a PLAN: JOSUE superimposed on CKD stage IIIb. Baseline creatinine around 1.7 mg/dL as of December 2024.Renal ultrasound no hydronephrosis. serologies negative called and spoke to pathology at [facility]. mostly ATN. IF negative. no profileration. admit to [facility] as JOSUE placement in progress HD today see orders 03/21/25 1811 Cosigner Signature (if applicable): CC: ~ Signed [facility]05-07-2025 Progress note Author Fitz Ryan [facility] Note Date/Time March 21, 2025 3:09pm [facility] Medical Records Department [address] [place] [address] Progress Note - Hospitalist 03/21/25 0808 MR#: [id number] Acct: [id number] Name: MISAEL MEDINA Rep #:[id number] 13 : 1950 74 From: Fitz Ryan DO PCP: Dr. Donal Will MD Status:ADM IN Location: [place] [address] Reason for Visit Reason for Visit: Diagnoses [...] 3b (03/13/25) Chronic kidney disease, unspecified (03/13/25) MCC (current) use of insulin (03/13/25) Subjective Subjective [...] core biopsy. Laboratory results pending. Reading Location: [place] [address] Physical Exam Const alert and no apparent [...] (moderate) Chronic kidney disease stage 3 subtype: mapmy2o (GFR 45-59) Qualified Code(s): N17.9 - Acute [...] to SNF. Charges/Coding Visit Charges Inpatient E&M: 65909 Subs Hosp L2 03/21/25 1509 <Electronically signed by Fitz Ryan DO> Cosigner Signature (if applicable): CC: ~ Signed [facility] Work Phone: 1(182) 380-565005-07-2025 Progress note [facility] Medical Records Department [address] [place] [address] Progress Note - Hospitalist 03/21/25 0808 MR#: [id number] Acct: [id number] Name: MISAEL MEDINA Rep #:[id number] 13 : 1950 74 From: Fitz Ryan DO PCP: Dr. Donal Will MD Status:ADM IN Location: [place] [address] Reason for Visit Reason for Visit: Diagnoses [...] 3b (03/13/25) Chronic kidney disease, unspecified (03/13/25) MCC (current) use of insulin (03/13/25) Subjective Subjective [...] core biopsy. Laboratory results pending. Reading Location: [place] [address] Physical Exam Const alert and no apparent [...] (moderate) Chronic kidney disease stage 3 subtype: irbkx7i (GFR 45-59) Qualified Code(s): N17.9 - Acute [...] to SNF. Charges/Coding Visit Charges Inpatient E&M: 81024 Subs Hosp L2 03/21/25 4903 Cosigner Signature (if applicable): CC: ~ Signed [facility]05-06-2025 Progress note Author Aparna Mabry [facility] Note Date/Time March 20, 2025 5:41pm [facility] Medical Records Department [address] [place] [address] Progress Note - Hospitalist 03/20/25 8681 MR#: [id number] Acct: [id number] Name: MISAEL MEDINA Rep #:[id number] 90 : 1950 74 From: Aparna Mabry MD PCP: Dr. Donal Will MD Status:ADM IN Location: [place] [address] Reason for Visit Reason for Visit: Diagnoses [...] 3b (03/13/25) Chronic kidney disease, unspecified (03/13/25) MCC (current) use of insulin (03/13/25) Subjective Subjective [...] 84.1 H, Lymph % (Auto) 6.4 L, Grainger % (Auto) 7.7, Eos % (Auto) 0.3, [...] core biopsy. Laboratory results pending. Reading Location: [place] [address] Physical Exam Narrative General: Alert, no apparent [...] (moderate) Chronic kidney disease stage 3 subtype: qluaa8v (GFR 45-59) Qualified Code(s): N17.9 - Acute [...] SQ heparin. Charges/Coding Visit Charges Inpatient E&M: 28880 Subs Hosp L2 03/20/25 2119 <Electronically signed by Aparna Mabry MD> Cosigner Signature (if applicable): CC: ~ Signed [facility] Work Phone: 1(513) 921-337605-06-2025 Progress note [facility] Medical Records Department [address] [place] [address] Progress Note - Hospitalist 03/20/25 1734 MR#: [id number] Acct: [id number] Name: MISAEL MEDINA Rep #:[id number] 90 : 1950 74 From: Aparna Mabry MD PCP: Dr. 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 Laboratory results pending. Reading Location: [place] [address] Physical Exam Narrative General: Alert, no apparent [...] (moderate) Chronic kidney disease stage 3 subtype: lzawx7y (GFR 45-59) Qualified Code(s): N17.9 - Acute [...] SQ heparin. Charges/Coding Visit Charges Inpatient E&M: 39047 Subs Hosp L2 03/20/25 4230 Cosigner Signature (if applicable): CC: ~ Signed [facility]05-06-2025 Progress note Author Lorraine Gupta [facility] Note Date/Time March 20, 2025 12:51p m [facility] Medical Records Department [address] [place] [address] Progress Note 03/20/25 1250 MR#: [id number] Acct: [id number] Name: MISAEL MEDINA Rep #:[id number] 58 : 1950 74 From: Lorraine reyez MD PCP: Dr. Donal Will MD Status:ADM IN Location: [place] [address] Progress Note went down for biopsy. could not see today. serologies mostly negative. some urine output. HD likely tomorrow depending on labs. will call pathology tomorrowfor results of biopsy 03/20/25 1251 <Electronically signed by Lorraine Gupta MD> Lorraine Gupta MD Cosigner Signature (if applicable): CC: ~ Signed [facility] Work Phone: 1([phone]) 130-423905-06-2025 Progress note [facility] Medical Records Department [address] [place] [address] Progress Note 03/20/25 1250 MR#: [id number] Acct: [id number] Name: MISAEL MEDINA Rep #:[id number] 58 : 1950 74 From: Lorraine reyez MD PCP: Dr. Donal Will MD Status:ADM IN Location: [place] [address] Progress Note went down for biopsy. could not see today. serologies mostly negative. some urine output. HD likelytomorrow depending on labs. will call pathology tomorrowfor results of biopsy 03/20/25 1251 Lorraine Gupta MD Cosigner Signature (if applicable): CC: ~ Signed [facility]05-06-2025 Progress note Author Teri Landon [facility] Note Date/Time March 20, 2025 10:40a m [facility] Medical Records Department [address] [place] [address] Progress Note - Nephrology 03/15/25 1046 MR#: [id number] Acct: [id number] Name: MISAEL MEDINA Rep #:[id number] : 1950 74 From: Teri dutton FREIGHT BOOKER-C PCP: Dr. Donal Will MD Status:ADM IN Location: [place] [address] Subjective Subjective Patient is sitting in chair. [...] No hydronephrosis to suggest obstruction. Reading Location: [facility] Physical Exam Narrative Alert awake oriented x 3 no obvious distress s1s2 no murmurs lungs clear abdomen soft n Trace edema bilateral legs Jimenez with trace yellow urine in tubing Assessment & Plan Assessment/Plan (1) Acute kidney injury superimposed on chronic kidney disease: PLAN: CKD stage IIIb at baseline, 1.7 last creatinine from December. - JOSUE superimposed on CKD; Creatinine 4.48 on 03/12--> today creatinine up to 5.79. Patient has Jimenez, urine output only 50 mL charted for today. Renal ultrasound no hydronephrosis. Urine sodium less than 20. Cause of JOSUE unclear,renal serologies ordered and pending. Patient may need kidney biopsy. Discussed with patient today as it was also discussed with her yesterday that she is heading towards needing ELEVATOR CONSTRUCTOR. Risks and benefits of hemodialysis discussed and reviewed with patient. Questions answered. Patient is in agreement with hemodialysis. Surgery team consulted for tunneled hemodialysis catheter. Depending upon timing of catheter placement we will then arrange for hemodialysis on 2K bath. No fluid removal with first HD treatment. Dialysis orders placed. Consult social science teacher for arrangements for outpatient hemodialysis, diagnosis JOSUE. [...] restrictions. Assessment and plan reviewed with Dr. Gupta. 03/15/25 1054 <Electronically signed by Teri WHALEY> Cosigner Signature (if applicable): 03/20/25 1040 <Electronically signed by Lorraine Gupta MD> CC: ~ Signed [facility] Work Phone: 1(273) 857-553505-06-2025 Progress note Author Teri Landon [facility] Note Date/Time March 20, 2025 10:40a m [facility] Medical Records Department [address] [place] [address] Progress Note - Nephrology 03/19/25 1042 MR#: [id number] Acct: [id number] Name: MISAEL MEDINA Rep #:[id number] 54 : 1950 74 From: Teri dutton FREIGHT BOOKER-C PCP: Dr. Donal Will MD Status:ADM IN Location: [place] [address] Subjective Subjective Patient resting in bed, on [...] (moderate) Chronic kidney disease stage 3 subtype: aewnl6p (GFR 45-59) Qualified Code(s): N17.9 - Acute [...] HD initiated). Outpatient hemodialysis arrangements underway at [facility]. Assessment and plan reviewed with Dr. Gupta. 03/19/25 1053 <Electronically signed by Teri WHALEY> Cosigner Signature (if applicable): 03/20/25 1040 <Electronically signed by Lorraine Gupta MD> CC: ~ Signed [facility] Work Phone: 1(752) [phone] Consult note Author Oswald Bonds [facility] Note Date/Time March 20, 2025 10:37a m [facility] Medical Records Department [address] [place] [address] [place] [address] Consultation - Infectious Dx 03/20/25 1032 MR#: [id number] Acct: [id number] Name: MISAEL MEDINA Rep #:[id number] 17 : 1950 74 From: Oswald mcdonald MD PCP: Dr. Donal Will MD Status:ADM IN Location: [place] [address] Assessment & Plan Assessment/Plan (1) Right hallux osteomyelitis: PLAN: Wound cx with enterococcus x2, GPR. Now s/p OR 03/19/[address] Coronado for distal r 1st toe amputation. Surg cx pending. On vanc/zosyn, will narrow to unasyn. Plan for discharge given presumed source control will be po augmentin 250mg bid for one week while final cx and path pending. 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 [facility] Medical History Congestive heart failure Hypothyroidism Osteoporosis [...] 84.1 H, Lymph % (Auto) 6.4 L, Grainger % (Auto) 7.7, Eos % (Auto) 0.3, [...] the left ankle normal atrest. Ordering Physician: Princess Coronado Referring Physician: Donal Will Performed By: Nabor [place] RVT 03/20/25 1037 <Electronically signed by Oswald Bonds MD> Cosigner Signature (if applicable): CC: Dr. Donal Will MD~ Signed [facility] Work Phone: 1(607) 999-983005-06-2025 Radiology Diagnostic study note [facility] Imaging Services [address] [place] [address] [id number] Kidney Biopsy MR#: [id number] Acct: [id number] Name: MISAEL MEDINA Rep #: [id number] 03 : 1950 F 74 From: Kirk Stafford MD PCP: Dr. Donal Will MD Status: ADM IN Study:Kidney Biopsy Date of Exam: Exam# [id number] Ordering Dr: Krutis Gupta MD EXAM: Ultrasound-guided renal biopsy. CLINICAL HISTORY: Acute kidney injury. COMPARISON: None. TECHNIQUE: Ultrasound-guided kidney biopsy. FINDINGS: Procedure: Following informed consent, and using standard sterile technique, an ultrasound- guided left inferior kidney biopsy was performed via an anterolateral approach. 2% lidocaine local anesthesia was followed by placement of a Hab [employer] 18 gauge 20 cm core biopsy system. 3 biopsy specimens were then obtained. No complication was encountered, in the patient left the department in good condition, without significant complaint US/Kidney Biopsy IMPRESSION: Successful left inferior renal ultrasound guided core biopsy. Laboratory results pending. Reading Location: [place] [address] CC: Dr. Donal Will MD; Dr. Lorraine Gupta MD ~ Wellness Manager: Signed [facility]05-06-2025 Progress note [facility] Medical Records Department [address] [place] [address] Progress Note - Nephrology 03/15/25 1046 MR#: [id number] Acct: [id number] Name: MISAEL MEDINA Rep #:[id number] 68 : 1950 74 From: Teri dutton NP-C PCP: Dr. Donal Will MD Status:ADM IN Location: [place] [address] Subjective Subjective Patient is sitting in chair. [...] No hydronephrosis to suggest obstruction. Reading Location: [facility] Physical Exam Narrative Alert awake oriented x 3 no obvious distress s1s2 no murmurs lungs clear abdomen soft n Trace edema bilateral legs Jimenez with trace yellow urine in tubing Assessment & Plan Assessment/Plan (1) Acute kidney injury superimposed on chronic kidney disease: PLAN: CKD stage IIIb at baseline, 1.7 last creatinine from December. - JOSUE superimposed on CKD; Creatinine 4.48 on 03/12--> today creatinine up to 5.79. Patient has Jimenez, urine output only 50 mL charted for today. Renal ultrasound no hydronephrosis. Urine sodium less than 20. Cause of JOSUE unclear,renal serologies ordered and pending. Patient may need kidney biopsy. Discussed with patient today as it was also discussed with her yesterday that she is heading towards needing ELEVATOR CONSTRUCTOR. Risks and benefits of hemodialysis discussed and reviewed with patient. Questions answered. Patient is in agreement with hemodialysis. Surgery team consulted for tunneled hemodialysiscatheter. Depending upon timing of catheter placement we will then arrange for hemodialysis on 2K bath. No fluid removal with first HD treatment. Dialysis orders placed. Consult social science teacher for arrangements for outpatient hemodialysis, diagnosis JOSUE. [...] restrictions. Assessment and plan reviewed with Dr. Gupta. 03/15/25 1054 Cosigner Signature (if applicable): 03/20/25 1040 CC: ~ Signed [facility]05-06-2025 Progress note [facility] Medical Records Department [address] [place] [address] Progress Note - Nephrology 03/19/25 1042 MR#: [id number] Acct: [id number] Name: MISAEL MEDINA Rep #:[id number] 54 : 1950 74 From: Teri dutton FREIGHT BOOKER-C PCP: Dr. Donal Will MD Status:ADM IN Location: [place] [address] Subjective Subjective Patient resting in bed, on [...] (moderate) Chronic kidney disease stage 3 subtype: xlssf5v (GFR 45-59) Qualified Code(s): N17.9 - Acute [...] HD initiated). Outpatient hemodialysis arrangements underway at [facility]. Assessment and plan reviewed with Dr. Gupta. 03/19/25 1053 Cosigner Signature (if applicable): 03/20/25 1040 CC: ~ Signed [facility]05-06-2025 Consult note [facility] Medical Records Department [address] [place] [address] Consultation - Infectious Dx 03/20/25 1032 MR#: [id number] Acct: [id number] Name: MISAEL MEDINA Rep #:[id number] 17 : 1950 74 From: Oswald mcdonald MD PCP: Dr. Donal Will MD Status:ADM IN Location: [place] [address] Assessment & Plan Assessment/Plan (1) Right hallux osteomyelitis: PLAN: Wound cx with enterococcus x2, GPR. Now s/p OR 03/19/[address] Coronado for distal r 1st toe amputation. Surg cx pending. On vanc/zosyn, will narrow to unasyn. Plan for discharge given presumed source control will be po augmentin 250mg bid for one week while final cx and path pending. Will follow, thank you, d.w nurse outreach case manager (2) Type 2 diabetes mellitus with diabetic polyneuropathy: QUALIFIERS: Diabetes mellitus terminal system operator insulin use: with terminal system operator use Qualified Code(s): E11.42 -Type 2 diabetes mellitus with diabetic polyneuropathy; Z79.4 - MCC (current) use of insulin (3) Acute on chronic renal failure: QUALIFIERS: Acute renal failure type: unspecified Chronic kidney disease stage: stage 3 (moderate) Chronic kidney disease stage 3 subtype: nfggj8b (GFR 45-59) Qualified Code(s): N17.9 - Acute [...] performed and neg except as noted above. [facility] Medical History Congestive heart failure Hypothyroidism Osteoporosis [...] 84.1 H, Lymph % (Auto) 6.4 L, Grainger % (Auto) 7.7, Eos % (Auto) 0.3, [...] the left ankle normal atrest. Ordering Physician: Princess Coronado Referring Physician: Donal Will Performed By: Nabor [place] [facility] 03/20/25 1037 Cosigner Signature (if applicable): CC: Dr. Donal Will MD~ Signed [facility]05-06-2025 Progress note Author Princess Coronado [facility] Note Date/Time March 20, 2025 8:20am [facility] Medical Records Department [address] [place] [address] Progress Note 03/20/25 0817 MR#: [id number] Acct: [id number] Name: MISAEL MEDINA Rep #:[id number] : 1950 74 From: Princess Coronado DPJamarcus PCP: Dr. Donal Will MD Status:ADM IN Location: [place] [address] 1 Subjective Subjective Patient seen 1 day postop. [...] 640 / 700 360 / 360 50 Output Total 170 / 270 1410 / 1410 50 50 Balance 470 / 430 -1050 / [...] 84.1 H, Lymph % (Auto) 6.4 L, Grainger % (Auto) 7.7, Eos % (Auto) 0.3, [...] the left ankle normal atrest. Ordering Physician: Princess Coronado Referring Physician: Donal Will Performed By: Nabor [place] [facility] Physical Exam [...] evaluate the patient my phone number is [phone] (2) Non-pressure chronic ulcer of other part of right foot with necrosis of bone: 03/20/25 08 <Electronically signed by Princess Coronado DPM> Princess Coronado DPM Cosigner Signature (if applicable): CC: ~ Signed [facility] Work Phone: 1(106) 250-507605-06-2025 Progress note [facility] Medical Records Department [address] [place] [address] Progress Note 03/20/25816 MR#: [id number] Acct: [id number] Name: MISAEL MEDINA Rep #:[id number] : 1950 74 From: Princess Coronado DPM PCP: Dr. Donal Will MD Status:ADM IN Location: [place] [address] Subjective Subjective Patient seen 1 day postop. [...] 84.1 H, Lymph % (Auto) 6.4 L, Grainger % (Auto) 7.7, Eos % (Auto) 0.3, [...] the left ankle normal atrest. Ordering Physician: Princess Coronado Referring Physician: Donal Will Performed By: Nabor [place] [facility] Physical Exam [...] care unit or hospital at which time Summer evaluate patient in the hospital. *This time I will sign off of any additional care is required during this inpatient stay please feel free to contact me and I will come back evaluate the patient my phone number is [phone] (2) Non-pressure chronic ulcer of other part of right foot with necrosis of bone: 03/20/25 0820 Princess Coronado DPM Cosigner Signature (if applicable): CC: ~ Signed [facility]05-05-2025 Progress note Author Fitz Ryan [facility] Note Date/Time March 19, 2025 3:48pm [facility] Medical Records Department [address] [place] [address] Progress Note - Hospitalist 03/19/25 0840 MR#: [id number] Acct: [id number] Name: MISAEL MEDINA Rep #:[id number] : 1950 74 From: Fitz Ryan DO PCP: Dr. 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 (03/13/25) Subjective Subjective [...] (moderate) Chronic kidney disease stage 3 subtype: [id number] (GFR 45-59) Qualified Code(s): N17.9 - Acute [...] at bedside Charges/Coding Visit Charges Inpatient E&M: 78675 Subs Hosp L2 03/19/25 1544 <Electronically signed by Fitz Ryan DO> Cosigner Signature (if applicable): CC: ~ Signed [facility] Work Phone: 1(854) 570-400005-05-2025 Consult note Author Bassam Casey [facility] Note Date/Time March 19, 2025 1:49pm [facility] Medical Records Department [address] [place] [address] Anesthesia Postop Eval II 03/19/25 1331 MR#: [id number] Acct: [id number] Name: MISAEL MEDINA Rep #:[id number] : 1950 74 From: Bassam Casey MD PCP: Dr. Donal Will MD Status:ADM IN Y Race: C Location: [place] [address] Anesthesia Postop Eval I Sum Postop Eval Completion status Anesthesia document: Postop Eval 1 completed: Yes Anesthesia Postop Eval I Summary Anesthesia Postop Eval I Summary: Anesthesia Postop Eval I: Assessment Summary Airway patent Yes 03/19/25 13:04 [email or web address].DANNI Spontaneous unlabored Yes 03/19/25 13:04 GARDENERFORTUNATO respirations Mental status Awake,Calm 03/19/25 13:04 GARDENER.ANGELAOBY nausea No 03/19/25 13:04 GARDENER.ANGELAOBY Vomiting No 03/19/25 13:04 GARDENERCATINAOBElder Anesthesia Postop Eval I: Fluid Summary Crystalloid volume administer 50 03/19/25 13:04 GARDENER.SKOBY (ml) Colloids volume administered ( ml) Blood [...] MD Cosigner Signature: Date CC: ~ Signed [facility] Work Phone: 1(218) 151-390505-05-2025 Progress note [facility] Medical Records Department [address] [place] [address] Progress Note - Hospitalist 03/19/25 0840 MR#: [id number] Acct: [id number] Name: MISAEL MEDINA Rep #:[id number] : 1950 74 From: Fitz Ryan DO PCP: Dr. Donal Will MD Status:ADM IN Location: [place] [address] Reason for Visit Reason for Visit: Diagnoses [...] 3b (03/13/25) Chronic kidney disease, unspecified (03/13/25) [facility] (current) use of insulin (03/13/25) Subjective Subjective [...] (moderate) Chronic kidney disease stage 3 subtype: [id number] (GFR 45-59) Qualified Code(s): N17.9 - Acute [...] at bedside Charges/Coding Visit Charges Inpatient E&M: 75914 Subs Hosp L2 03/19/25 1548 Cosigner Signature (if applicable): CC: ~ Signed [facility]05-05-2025 Consult note Author Marie York [facility] Note Date/Time March 19, 2025 1:04pm [facility] Medical Records Department [address] [place] [address] Anesthesia Postop Eval I 03/19/25 1301 MR#: [id number] Acct: [id number] Name: MISAEL MEDINA Rep #:[id number] : 1950 74 From: Marie dutton CRNA PCP: Dr. Donal Will MD Status:ADM IN Y Race: C Location: [place] [address] Anesthesia: Postop Eval I Current Vital Signs [...] 03/19/25 1304 <Electronically signed by Marie biggs CRNA> Date _ Marie York CRNA Cosigner Signature: Date CC: ~ Signed [facility] Work Phone: [phone] Consult note [facility] Medical Records Department [address] [place] [address] Anesthesia Postop Eval II 03/19/25 1331 MR#: [id number] Acct: [id number] Name: MISAEL MEDINA Rep #:[id number] : 1950 74 From: Bassam Caesy MD PCP: Dr. Donal Will MD Status:ADM IN Y Race: C Location: [place] [address] 8-1 Anesthesia Postop Eval I Sum Postop Eval Completion status Anesthesia document: Postop Eval 1 completed: Yes Anesthesia Postop Eval I Summary Anesthesia Postop Eval I Summary: Anesthesia Postop Eval I: Assessment Summary Airway patent Yes 03/19/25 13:04 [email or web address] Spontaneous unlabored Yes 03/19/25 13:04 GARDENER.SKOBY respirations Mental status Awake,Calm 03/19/25 13:04 GARDENER.SKOBY nausea No 03/19/25 13:04 GARDENER.SKOBY Vomiting No 03/19/25 13:04 GARDENER.SKOBY Anesthesia Postop Eval I: Fluid Summary Crystalloid volume administer 50 03/19/25 13:04 GARDENER.SKOBY (ml) Colloids volume administered ( ml) Blood Product volume administered (ml) Total IV fluid infused 50 03/19/25 13:04 GARDENER.SKOBY Anesthesia Postop Eval I: Summary Notes Anesthesia Complication No 03/19/25 13:04 GARDENER.SKOBY Anesthesia Complication Comment: Post-operative progress note Anesthesia: [...] signed out to the floor team by the[facility] nurse taking care of this patient . Complications Anesthesia Complication: No 03/19/25 1349 MD> Date _ Bassam Aviles Signature: Date CC: ~ Signed [facility]05-05-2025 Progress note Author Princess Coronado [facility] Note Date/Time March 19, 2025 11:43a m [facility] Medical Records Department [address] [place] [address] Progress Note 03/19/25 1142 MR#: [id number] Acct: [id number] Name: MISAEL MEDINA Renée Rep #:[id number] : 1950 74 From: Princess Coronado DPJamarcus PCP: Dr. 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 (3) Non-pressure chronic ulcer of other part of right foot with necrosis of bone: 03/19/25 1143 <Electronically signed by Princess Coronado DPM> Princess Coronado DPM Cosigner Signature (if applicable): CC: ~ Signed [facility] Work Phone: 1(770) 363-386605-05-2025 Consult note Author Bassam Casey [facility] Note Date/Time March 19, 2025 11:22a m [facility] Medical Records Department [address] [place] [address] Pre-Anesthesia Evaluation 03/19/25 1027 MR#: [id number] Acct: [id number] Name: MISAEL MEDINA Rep #:[id number] : 1950 74 From: Bassam Casey MD PCP: Dr. Donal Will MD Status:ADM IN Y Race: C Location: [place] [address] 81 ASA Classification* ASA Classification ASA Classification: 4 [...] 05: Glucose 139 mg/dL (70-99) H 03/18/25 05:03/18/25 POC Glucose 99 mg/dL (74-106) 03/19/25 06:22 03/19/25 TSH 0.224 uIU/mL (0.358-3.740) L 10/18/24 05:35 COAG PT 15.5 SECONDS (11.7-14.9) H 03/15/25 10:05 0512/09 Pre-Assessment Diagnosis/Proposed Procedure Planned Operative Procedure(s): insertion hemodialysis catheter Anesthesia History Anesthesia History - grip: Anesthesia History - grip Hx Hospitalization No 11/05/22 15:04 Any Problems [...] take am of surgery PONV PONV - grip: PONV - grip Female HX of Motion Sickness HX of N/V After Surgery Non-Smoker Duration of Surgery greater than 60 minutes Number of Risk Factors PONV Score Height & Weight Height & Weight: Anesthesia: Height & Weight Height 4 ft 11.84 in 03/19/25 10:16 Weight: 123 kg 03/19/25 10:16 Body Mass Index (BMI) 53.2 03/19/25 07:03 Respiratory Assessment Respiratory Assessment - grip: Respiratory Tract Infection Hx - grip Hx Respiratory Tract Infection No 03/16/25 08:00 STOP Sleep Apnea STOP Sleep Apnea - grip: STOP Sleep Apnea - grip Hx Hypertension Yes 03/14/25 14:42 Hx Sleep [...] Tobacco Use History Tobacco Use History - grip: Tobacco Use History - grip Tobacco Use Smoking Status Never smoker 03/13/25 19:56 Hx Tobacco Use No 03/13/25 19:56 Years Smoking Packs Smoked per Day Smoking Cessation Date was within the last 15 years Hx Smoking Cessation Date Hx Smoking Cessation Counseling Hematologic Medial History Hematologic Hx - grip: 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 Hx of Blood Transfusion No 03/13/25 19:56 [...] confused, unrespo /Reproduction History /Reproductive History - grip: /Reproductive Hx- grip Hx Now No 03/16/25 08:00 Gestational Age [...] 100 Unit/Ml Insuln.Pen SC Not Given ACHS [facility] Protocol Levothyroxine Sodium 100 mcg 03/14/25 06:00 [...] MD Cosigner Signature: Date CC: ~ Signed [facility] Work Phone: 1(234) 103-836405-05-2025 Consult note [facility] Medical Records Department [address] [place] [address] [place] [address] Anesthesia Postop Eval I 03/19/25 1301 MR#: [id number] Acct: [id number] Name: MISAEL MEDINA Rep #:[id number] : 1950 74 From: Marie dutton GARDENER PCP: Dr. Donal Will MD Status:ADM IN Y Race: C Location: [place] [address] Anesthesia: Postop Eval I Current Vital Signs [...] Eval 1 completed: Yes 03/19/25 1304 kalyan GARDENER> Date _ Marie York GARDENER Cosigner Signature: Date CC: ~ Signed [facility]05-05-2025 Procedure note [facility] Medical Records Department [address] [place] [address] Operative Report 03/19/25 1233 MR#: [id number] Acct: [id number] Name: MISAEL MEDINA Rep #:[id number] : 1950 74 From: Princess Coronado DPM PCP: Dr. Donal Will MD Status:ADM IN Location: [place] [address] Problems Associated Problem List Diagnoses (1) Other [...] advancement flap closure, right hallux amputation site rehabilitation therapy aide: No Type of Anesthesia: Local and MAC [...] Advancement flap closure using fishmouth incision (CPT 45489) Indications: Patient with diabetic neuropathy, microvascular disease, [...] 03/19/25 1239 Cosigner Signature (if applicable): CC: TAVO Coronado; Dr. Seth Garnica DO; Dr. Donal Will MD; Dr. Lorraine Gupta MD; Dr. Joao Francois MD; Dr. Bandar Linares MD; Dr. Milton Muñoz MD~ Signed [facility]05-05-2025 Progress note [facility] Medical Records Department [address] [place] [address] Progress Note 03/19/25 1142 MR#: [id number] Acct: [id number] Name: MISAEL MEDINA Rep #:[id number] : 1950 74 From: Princess Coronado DPM PCP: Dr. 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 Donal Will MD Status:ADM IN Y Race: C Location: [place] [address] ASA Classification* ASA Classification ASA Classification: 4 [...] 03/18/25 Creatinine 4.09 mg/dL (0.70-1.20) H 03/18/25 05: Glucose 139 mg/dL (70-99) H 03/18/25 05:03/18/25 POC Glucose 99 mg/dL (74-106) 03/19/25 06:22 03/19/25 TSH 0.224 uIU/mL (0.358-3.740) L 10/18/24 05:35 COAG PT 15.5 SECONDS (11.7-14.9) H 03/15/25 10:05 0512/09 Pre-Assessment Diagnosis/Proposed Procedure Planned Operative Procedure(s): insertion hemodialysis catheter Anesthesia History Anesthesia History - grip: Anesthesia History - grip Hx Hospitalization No 11/05/22 15:04 Any Problems [...] take am of surgery PONV PONV - grip: PONV - grip Female HX of Motion Sickness HX of N/V After Surgery Non-Smoker Duration of Surgery greater than 60 minutes Number of Risk Factors PONV Score Height & Weight Height & Weight: Anesthesia: Height & Weight Height 4 ft 11.84 in 03/19/25 10:16 Weight: 123 kg 03/19/25 10:16 Body Mass Index (BMI) 53.2 03/19/25 07:03 Respiratory Assessment Respiratory Assessment - grip: Respiratory Tract Infection Hx - grip Hx Respiratory Tract Infection No 03/16/25 08:00 STOP Sleep Apnea STOP Sleep Apnea - grip: STOP Sleep Apnea - grip Hx Hypertension Yes 03/14/25 14:42 Hx Sleep [...] Tobacco Use History Tobacco Use History - grip: Tobacco Use History - grip Tobacco Use Smoking Status Never smoker 03/13/25 19:56 Hx Tobacco Use No 03/13/25 19:56 Years Smoking Packs Smoked per Day Smoking Cessation Date was within the last 15 years Hx Smoking Cessation Date Hx Smoking Cessation Counseling Hematologic Medial History Hematologic Hx - grip: 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 Hx of Blood Transfusion No 03/13/25 19:56 [...] confused, unrespo /Reproduction History /Reproductive History - grip: /Reproductive Hx- grip Hx Now No 03/16/25 08:00 Gestational Age [...] Administration Protocol Heparin Sodium (Porcine) 5,000 unit 05/01/25 22:00 03/19/25 09:04 Heparin Injection (Vial) 5,000 Unit/Ml Vial SC Not Given BID [facility] Heparin Sodium (Porcine) 1,000 - 3,000 units [...] 100 Unit/Ml Insuln.Pen SC Not Given ACHS [facility] Protocol Levothyroxine Sodium 100 mcg 03/14/25 06:00 03/19/25 09:04 Levothyroxine 100 Mcg Tablet PO Not Given DAILY@0600 YOLI Nystatin 1 applic 03/13/25 22:00 03/18/25 21:08 Nystatin Powder 15gm Bottle TOPICAL 1 applic BID [facility] Administration Protocol Sodium Chloride 10 - 40 [...] regular rate and regular rhythm 03/19/25 1122 MD> Date _ Bassam Casey MD Cosigner Signature: Date CC: ~ Signed [facility]05-04-2025 Progress note Author Lorraine Gupta [facility] Note Date/Time March 18, 2025 6:44pm [facility] Medical Records Department [address] [place] [address] Progress Note - Nephrology 03/18/25 1843 MR#: [id number] Acct: [id number] Name: MISAEL MEDINA Rep #:[id number] : 1950 74 From: Lorraine reyez MD PCP: Dr. Donal Will MD Status:ADM IN Location: [place] [address] Subjective Subjective no new complaints. breathing is [...] (moderate) Chronic kidney disease stage 3 subtype: vlikx4c (GFR 45-59) Qualified Code(s): N17.9 - Acute [...] order placed 03/18/251843 <Electronically signed by Lorraine Gupta MD> Cosigner Signature (if applicable): CC: ~ Signed [facility] Work Phone: 1(678) 144-554505-04-2025 Progress note [facility] Medical Records Department [address] [facility] [place] [address] Progress Note - Nephrology 03/18/251842 MR#: [id number] Acct: [id number] Name: MISAEL MEDINA Rep #:[id number] : 1950 74 From: Lorraine reyez MD PCP: Dr. Donal Will MD Status:ADM IN Location: [place] [address] Subjective Subjective no new complaints. breathing is [...] (moderate) Chronic kidney disease stage 3 subtype: ligok4v (GFR 45-59) Qualified Code(s): N17.9 - Acute [...] failure she is agreeable. order placed 03/18/25 9249 Cosigner Signature (if applicable): CC: ~ Signed [facility]05-04-2025 Progress note Author Seth Garnica [facility] Note Date/Time March 18, 2025 10:03a m [facility] Medical Records Department [address] [place] [address] Progress Note - Hospitalist 03/18/2535 MR#: [id number] Acct: [id number] Name: MISAEL MEDINA Rep #:[id number] : 1950 74 From: Seth mai DO PCP: Dr. Donal Will MD Status:ADM IN Location: [place] [address] Reason for Visit Reason for Visit: Diagnoses [...] 3b (03/13/25) Chronic kidney disease, unspecified (03/13/25) [facility] (current) use of insulin (03/13/25) Subjective Subjective [...] (moderate) Chronic kidney disease stage 3 subtype: gxapp0d (GFR 45-59) Qualified Code(s): N17.9 - Acute kidney failure, unspecified; N18.31 - Chronic kidney disease, stage 3a (2) Hyperkalemia: (3) Right hallux osteomyelitis: PLAN: Plan Patient is a 74-year-old female who presented to [facility] ED on 03/13/2025 with fatigue [...] 35 minutes. Charges/Coding Visit Charges Inpatient E&M: 30294 Subs Hosp L2 03/18/25 1003 <Electronically signed by Seth Garnica DO> Cosigner Signature (if applicable): CC: ~ Signed [facility] Work Phone: 1(413) 543-660005-04-2025 Progress note [facility] Medical Records Department [address] [place] [address] Progress Note - Hospitalist 03/18/25 0935 MR#: [id number] Acct: [id number] Name: MISAEL MEDINA Rep #:[id number] : 1950 74 From: Seth mai DO PCP: Dr. 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 Charges/Coding Visit Charges Inpatient E&M: 09187 Subs Hosp L2 03/18/25 1003 Cosigner Signature (if applicable): CC: ~ Signed [facility]05-03-2025 Consult note Author Marj Naylor [facility] Note Date/Time March 17, 2025 9:28pm [facility] Medical Records Department [address] [place] [address] Pharmacokinetic/Renal -Consult 03/17/252124 MR#: [id number] Acct: [id number] Name: MISAEL MEDINA Rep #:[id number] : 1950 74 From: Marj Naylor PCP: Dr. Donal Will MD Status:ADM IN Y Location: [place] [address] Consult Antibiotic Management Pharmacy has been consulted [...] today per nephrology. Will give 1g IV k5njni-GG treatment. Nephrology note did not state a [...] (if applicable): Date CC: ~ Signed [facility] Work Phone: 1(520) 371-776005-03-2025 Consult note [facility] Medical Records Department [address] [place] [address] Pharmacokinetic/Renal -Consult 03/17/252124 MR#: [id number] Acct: [id number] Name: MISAEL MEDINA Rep #:[id number] : 1950 74 From: Marj Naylor PCP: Dr. Donal Will MD Status:ADM IN Location: [place] [address] Consult Antibiotic Management Pharmacy has been consulted [...] today per nephrology. Will give 1g IV y8vvwm-EU treatment. Nephrology note did not state a [...] as required. 03/17/252127 > Date _ Marj Regula Cosigner Signature (if applicable): Date CC: ~ Signed [facility]05-03-2025 Progress note Author Shila Story [facility] Note Date/Time March 17, 2025 6:01pm [facility] Medical Records Department [address] [place] [address] Progress Note - Nephrology 03/17/25 1757 MR#: [id number] Acct: [id number] Name: MISAEL MEDINA Rep #:[id number] : 1950 74 From: Shila garcia MD PCP: Dr. Donal Will MD Status:ADM IN Location: [place] [address] Subjective Subjective Follow-up on acute kidney injury, [...] 107 H 03/16/25 21:42: POC Glucose 91 05/03/25 04:27: Sodium 136, Potassium 4.9, Chloride 106, [...] (moderate) Chronic kidney disease stage 3 subtype: ihjkg7m (GFR 45-59) Qualified Code(s): N17.9 - Acute [...] Cosigner Signature (if applicable): CC: ~ Signed [facility] Work Phone: 1(930) 884-983105-03-2025 Progress note [facility] Medical Records Department [address] [place] [address] Progress Note - Nephrology 03/17/251756 MR#: [id number] Acct: [id number] Name: MISAEL MEDINA Rep #:[id number] : 1950 74 From: Shila garcia MD PCP: Dr. Donal Will MD Status:ADM IN Location: [place] [address] Subjective Subjective Follow-up on acute kidney injury, [...] (moderate) Chronic kidney disease stage 3 subtype: pvein8e (GFR 45-59) Qualified Code(s): N17.9 - Acute [...] Cosigner Signature (if applicable): CC: ~ Signed [facility]05-03-2025 Consult note Author Shaina Joseph [facility] Note Date/Time March 17, 2025 3:08pm [facility] Medical Records Department [address] [place] [address] Pharmacokinetic/Renal -Consult 03/16/25 1518 MR#: [id number] Acct: [id number] Name: MISAEL MEDINA Rep #:[id number] : 1950 74 From: Shaina Joseph PCP: Dr. Donal Will MD Status:ADM IN Y Location: [place] [address] Consult Antibiotic Management Pharmacy has been consulted [...] Date Seth Garnica DO CC: ~ Signed [facility] Work Phone: 1(212) 276-680105-03-2025 Consult note [facility] Medical Records Department [address] [place] [address] Pharmacokinetic/Renal -Consult 03/16/25 1518 MR#: [id number] Acct: [id number] Name: MISAEL MEDINA Rep #:[id number] : 1950 74 From: Shaina Joseph PCP: Dr. 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 Reading Location: [facility] Foot X-Ray 03/16/25 12:45 IMPRESSION: Cortical bone irregularity along the medial aspect of the 1st distal phalanx (1st great toe). Narrowing of the 1st interphalangeal joint concerning for intra-articular involvement. Reading Location: [facility] Foot X-Ray 03/16/25 12:45 IMPRESSION: DEGENERATIVE OSTEOARTHROSIS. NO ACUTE FINDINGS. Reading Location: [facility] Physical Exam Const alert and no [...] is a 74-year-old female who presented to [facility] ED on 03/13/2025 with fatigue [...] 35 minutes. Charges/Coding Visit Charges Inpatient E&M: 43393 Subs Hosp L2 03/17/25 1250 <Electronically signed by Seth Garnica DO> Cosigner Signature (if applicable): CC: ~ Signed [facility] Work Phone: 1(830) 702-482205-03-2025 Progress note [facility] Medical Records Department [address] [place] [address] Progress Note - Hospitalist 03/17/25 1044 MR#: [id number] Acct: [id number] Name: MISAEL MEDINA Rep #:[id number] : 1950 74 From: Seth mai DO PCP: Dr. Donal Will MD Status:ADM IN Location: [place] [address] Reason for Visit Reason for Visit: Diagnoses [...] 3b (03/13/25) Chronic kidney disease, unspecified (03/13/25) MCC (current) use of insulin (03/13/25) Subjective Subjective [...] similar appearance of the chest. Reading Location: [facility] Foot X-Ray 03/16/25 12:45 IMPRESSION: Cortical bone irregularity along the medial aspect of the 1st distal phalanx (1st great toe). Narrowing of the 1st interphalangeal joint concerning for intra-articular involvement. Reading Location: [facility] Foot X-Ray 03/16/25 12:45 IMPRESSION: DEGENERATIVE OSTEOARTHROSIS. NO ACUTE FINDINGS. Reading Location: [facility] Physical Exam Const alert and no [...] is a 74-year-old female who presented to [facility] ED on 03/13/2025 with fatigue [...] 35 minutes. Charges/Coding Visit Charges Inpatient E&M: 00240 Subs Hosp L2 03/17/25 1622 Cosigner Signature (if applicable): CC: ~ Signed [facility]05-03-2025 Progress note Author Princess Coronado [facility] Note Date/Time March 17, 2025 9:29am [facility] Medical Records Department [address] [place] [address] Progress Note 03/17/25 0927 MR#: [id number] Acct: [id number] Name: MISAEL MEDINA Rep #:[id number] : 1950 74 From: Princess Coronado DPM PCP: Dr. Donal Will MD Status:ADM IN Location: [place] [address] Subjective Subjective Patient resting comfortably. Denies constitutional [...] similar appearance of the chest. Reading Location: [facility] Foot X-Ray 03/16/25 12:45 IMPRESSION: Cortical bone irregularity along the medial aspect of the 1st distal phalanx (1st great toe). Narrowing of the 1st interphalangeal joint concerning for intra-articular involvement. Reading Location: [facility] Foot X-Ray 03/16/25 12:45 IMPRESSION: DEGENERATIVE OSTEOARTHROSIS. NO ACUTE FINDINGS. Reading Location: [facility] Physical Exam Narrative Vascular: Dorsalis pedis [...] mellitus with diabetic polyneuropathy: QUALIFIERS: Diabetes mellitus assisted insulin use: with terminal system operator use Qualified Code(s): E11.42 - Type 2 diabetes mellitus with diabetic polyneuropathy; Z79.4 - MCC (current) use of insulin (3) Non-pressure chronic ulcer of other part of right foot with necrosis of bone: 03/17/25928 <Electronically signed by Princess Coronado DPM> Princess Coronado DPM Cosigner Signature (if applicable): CC: ~ Signed [facility] Work Phone: 1([phone]) 362-387505-03-2025 Progress note Author Antonio Perdomo [facility] Note Date/Time March 17, 2025 8:24am [facility] Medical Records Department [address] [place] [address] Progress Note - Surgery 03/17/25819 MR#: [id number] Acct: [id number] Name: MISAEL MEDINA Renée Rep #:[id number] : 1950 74 From: Antonio Perdomo MD PCP: Dr. Donal Will MD Status:ADM IN Location: [place] [address] Subjective Subjective Patient seen and examined on [...] similar appearance of the chest. Reading Location: [id number] Foot X-Ray 03/16/25 12:45 IMPRESSION: Cortical bone irregularity along the medial aspect of the 1st distal phalanx (1st great toe). Narrowing of the 1st interphalangeal joint concerning for intra-articular involvement. Reading Location: [facility] Foot X-Ray 03/16/25 12:45 IMPRESSION: DEGENERATIVE OSTEOARTHROSIS. NO ACUTE FINDINGS. Reading Location: [facility] Physical Exam Narrative She is alert [...] Cosigner Signature (if applicable): CC: ~ Signed [facility] Work Phone: 1(606) 178-817205-03-2025 Progress note [facility] Medical Records Department [address] [place] [address] Progress Note 03/17/2527 MR#: [id number] Acct: [id number] Name: MISAEL MEDINA Renée Rep #:[id number] : 1950 74 From: Princess Coronado DPM PCP: Dr. Donal Will MD Status:ADM IN Location: [place] [address] Subjective Subjective Patient resting comfortably. Denies constitutional [...] similar appearance of the chest. Reading Location: [id number] Foot X-Ray 03/16/25 12:45 IMPRESSION: Cortical bone irregularity along the medial aspect of the 1st distal phalanx (1st great toe). Narrowing of the 1st interphalangeal joint concerning for intra-articular involvement. Reading Location: [facility] Foot X-Ray 03/16/25 12:45 IMPRESSION: DEGENERATIVE OSTEOARTHROSIS. NO ACUTE FINDINGS. 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 Donal Will MD Status:ADM IN Location: [place] [address] Subjective Subjective Patient seen and examined on [...] similar appearance of the chest. Reading Location: [id number] Foot X-Ray 03/16/25 12:45 IMPRESSION: Cortical bone irregularity along the medial aspect of the 1st distal phalanx (1st great toe). Narrowing of the 1st interphalangeal joint concerning for intra-articular involvement. Reading Location: [facility] Foot X-Ray 03/16/25 12:45 IMPRESSION: DEGENERATIVE OSTEOARTHROSIS. NO ACUTE FINDINGS. Reading Location: [facility] Physical Exam Narrative She is alert [...] Cosigner Signature (if applicable): CC: ~ Signed [facility]05-02-2025 Progress note Author Seth Garnica [facility] Note Date/Time March 16, 2025 1:44pm [facility] Medical Records Department [address] [place] [address] Progress Note - Hospitalist 03/16/25 1042 MR#: [id number] Acct: [id number] Name: MISAEL MEDINA Rep #:[id number] : 1950 74 From: Seth mai DO PCP: Dr. Donal Will MD Status:ADM IN Location: [place] [address] 1 Reason for Visit Reason for Visit: [...] (Auto) 74.3 H, Lymph % (Auto)13.5 L, Grainger % (Auto) 9.3, Eos % (Auto) 2.3, [...] is a 74-year-old female who presented to [facility] ED on 03/13/2025 with fatigue [...] 35 minutes. Charges/Coding Visit Charges Inpatient E&M: 17696 Subs Hosp L2 03/16/25 1106 <Electronically signed [...] Cosigner Signature (if applicable): cc: ~* Signed [facility] Work Phone: 1(634) 727-924205-02-2025 Consult note Author Princess Coronado [facility] Note Date/Time March 16, 2025 1:37pm [facility] Medical Records Department [address] [place] [address] Consultation 03/16/25 1332 MR#: [id number] Acct: [id number] Name: MISAEL MEDINA Rep #:[id number] : 1950 74 From: Princess Coronado DPM PCP: Dr. Donal Will MD Status:ADM IN Location: [place] [address] Assessment & Plan Assessment/Plan (1) Other acute [...] mellitus with diabetic polyneuropathy: QUALIFIERS: Diabetes mellitus assisted insulin use: with terminal system operator use Qualified Code(s): E11.42 - Type 2 diabetes mellitus with diabetic polyneuropathy; Z79.4 - [facility] (current) use of insulin (3) Non-pressure chronic [...] leg cramping. Patient has no other complaints. [facility] Medical History Congestive heart failure Hypothyroidism Osteoporosis [...] (Auto) 74.3 H, Lymph % (Auto)13.5 L, Grainger % (Auto) 9.3, Eos % (Auto) 2.3, [...] no growth. 03/16/25 1337 <Electronically signed by Princess Coronado DPM> Cosigner Signature (if applicable): CC: Dr. Donal Will MD~ Signed [facility] Work Phone: 1(731) 285-656905-02-2025 Radiology Diagnostic study note [facility] Imaging Services [address] [place] [address] Foot min 3 Views MR#: [id number] Acct: [id number] Name: CAROLMISAEL Renée Rep #: [id number] : 1950 F 74 From: Briana Davenport MD PCP: Dr. Donal Will MD Status: ADM IN Study:Foot min 3 Views Date of Exam: 01/09 Exam# [id number] Ordering Dr: Princess Coronado DPM PROCEDURE: FOOT MIN 3 VIEWS [...] joint concerning for intra-articular involvement. Reading Location: [facility] CC: DPJamarcus Coronado; Dr. Donal Will MD ~ Wellness Manager: Signed [facility]05-02-2025 Consult note Author Tyler bobo [facility] Note Date/Time March 16, 2025 1:01pm [facility] Medical Records Department [address] [place] [address] Anesthesia Postop Eval II 03/16/25 1301 MR#: [id number] Acct: [id number] Name: MISAEL MEDINA Rep #:[id number] : 1950 74 From: Tyler Juan MD PCP: Dr. Donal Will MD Status:ADM IN Y Race: C Location: [place] [address] Anesthesia Postop Eval I Sum Postop Eval Completion status Anesthesia document: Postop Eval 1 completed: Yes Anesthesia Postop Eval I Summary Anesthesia Postop Eval I Summary: Anesthesia Postop Eval I: Assessment Summary Airway patent Yes 03/16/25 12:51 [email or web address] Spontaneous unlabored Yes 03/16/25 12:51 [email or web address] respirations Mental status nausea No 03/16/25 12:51 [email or web address] Vomiting No 03/16/25 12:51 [email or web address] Anesthesia Postop Eval I: Fluid Summary Crystalloid volume administer 300 03/16/25 12:51 [email or web address] (ml) Colloids volume administered ( ml) Blood Product volume administered (ml) Total IV fluid infused 300 03/16/25 12:51 [email or web address] Anesthesia Postop Eval I: Summary Notes Anesthesia Complication No 03/16/25 12:51 [email or web address] Anesthesia Complication Comment: Post-operative progress note Anesthesia: Postop Eval II Evaluation Mental status: Awake Pain Level: 0 nausea: No Vomiting: No 03/16/25 1301 <Electronically signed by Tyler Juan MD > Date _ Tyler Juan MD Cosigner Signature: Date CC: ~ Signed [facility] Work Phone: 1(644) 822-485505-02-2025 Radiology Diagnostic study note [facility] Imaging Services [address] [place] [address] Foot min 3 Views MR#: [id number] Acct: [id number] Name: CAROLMISAEL D Rep #: [id number] : 1950 F 74 From: Briana Davenport MD PCP: Dr. Donal Will MD Status: ADM IN Study:Foot min 3 Views Date of Exam: 01/09 Exam# [id number] Ordering Dr: Princess Coronado DPM PROCEDURE: FOOT MIN 3 VIEWS [...] DEGENERATIVE OSTEOARTHROSIS. NO ACUTE FINDINGS. Reading Location: [id number] CC: DPM Dr. Princess Coronado; Dr. Donal Will MD ~ Wellness Manager: Signed [facility]05-02-2025 Consult note Author Santiago Christianson [facility] Note Date/Time March 16, 2025 12:51p m [facility] Medical Records Department [address] [place] [address] Anesthesia Postop Eval I 03/16/25 1251 MR#: [id number] Acct: [id number] Name: CAROLMISAEL D Rep #:[id number] : 1950 74 From: Santiago ROSAS PCP: Dr. Donal Will MD Status:ADM IN Y Race: C Location: [place] [address] Anesthesia: Postop Eval I Current Vital Signs [...] 03/16/25 1251 <Electronically signed by Santiago Christianson CRNA> Date _ Santiago Christianson CRNA Cosigner Signature: Date CC: ~ Signed [facility] Work Phone: 1(626) 216-191805-02-2025 Radiology Diagnostic study note [facility] Imaging Services [address] [place] [address] CXR for Line Placement MR#: [id number] Acct: [id number] Name: MISAEL MEDINA Rep #: [id number] : 1950 F 74 From: Madeleine Christiansen MD PCP: Dr. Donal Will MD Status: ADM IN Study:CXR for Line Placement Date of Exam: 03/16/25 Exam# [id number] Ordering Dr: Dennise Francois MD PROCEDURE: CXR [...] similar appearance of the chest. Reading Location: [id number] CC: Dr. Donal Will MD; Dr. Joao Francois MD ~ Wellness Manager: Signed [facility]05-02-2025 Procedure note [facility] Medical Records Department [address] [place] [address] Operative Report 03/16/25 1240 MR#: [id number] Acct: [id number] Name: MISAEL MEDINA Rep #:[id number] : 1950 74 From: Joao Chinchilla PCP: Dr. Donal Will MD Status:ADM IN Location: [facility] [id number] Procedures Cardiovascular CF Procedures 33xxx-39xxx: [id number] Insert tunneled cv cath Operative Report (Standard) Operative Information Date of Procedure: 03/16/25 Pre-Operative Diagnosis: Acute on chronic renal failure requiring initiation of hemodialysis Post-Operative Diagnosis: Same Surgery/Procedure Performed: Ultrasound and fluoroscopic guided insertion of right internal jugulartunneled hemodialysis cath rehabilitation therapy aide: No Type of Anesthesia: MAC/Supplemental RN Documented [...] DRAINS/GRAFTS/IMPLANTS that apply: Implanted device (Palindrome 14.5 Croatian by 19 cm) Implanted device details: Reference [id number], lot [id number] Estimated Blood Loss: 15 Specimen collected: No [...] normal venous anatomy Complications Complications: No 03/16/25 1429 Cosigner Signature (if applicable): CC: DPJamarcus Coronado; Dr. Donal Will MD; Dr. Lorraine Gupta MD; Dr. Joao Francois MD; Dr. Bandar Linares MD; Dr. Milton Muñoz MD~ Signed [facility]05-02-2025 Progress note [facility] Medical Records Department [address] [place] [address] Progress Note - Hospitalist 03/16/25 1042 MR#: [id number] Acct: [id number] Name: MISAEL MEDINA Rep #:[id number] : 1950 74 From: Seth Ly priscila PCP: Dr. Donal Will MD Status:ADM IN Location: [place] [address] Reason for Visit Reason for Visit: Diagnoses [...] (Auto) 74.3 H, Lymph % (Auto)13.5 L, Grainger % (Auto) 9.3, Eos % (Auto) 2.3, [...] is a 74-year-old female who presented to [facility] ED on 03/13/2025 with fatigue [...] 35 minutes. Charges/Coding Visit Charges Inpatient E&M: 25073 Subs Hosp L2 03/16/25 1106 Cosigner Signature [...] Cosigner Signature (if applicable): cc: ~* Signed [facility]05-02-2025 Consult note [facility] Medical Records Department [address] [place] [address] Consultation 03/16/25 1332 MR#: [id number] Acct: [id number] Name: MISAEL MEDINA Rep #:[id number] : 1950 74 From: Princess Coronado DPJamarcus PCP: Dr. 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 Patient has no other complaints. [facility] Medical History Congestive heart failure Hypothyroidism Osteoporosis [...] (Auto) 74.3 H, Lymph % (Auto)13.5 L, Grainger % (Auto) 9.3, Eos % (Auto) 2.3, [...] Cosigner Signature (if applicable): CC: Dr. Donal Will MD~ Signed [facility]05-02-[facility] Consult note [facility] Medical Records Department [address] [place] [address] Anesthesia Postop Eval II 03/16/25 1301 MR#: [id number] Acct: [id number] Name: MISAEL MEDINA Rep #:[id number] : 1950 74 From: Tyler Juan MD PCP: Dr. Donal Will MD Status:ADM IN Y Race: C Location: [place] [address] 8-1 Anesthesia Postop Eval I Sum Postop Eval Completion status Anesthesia document: Postop Eval 1 completed: Yes Anesthesia Postop Eval I Summary Anesthesia Postop Eval I Summary: Anesthesia Postop Eval I: Assessment Summary Airway patent Yes 03/16/25 12:51 [email or web address] Spontaneous unlabored Yes 03/16/25 12:51 [email or web address] respirations Mental status nausea No 03/16/25 12:51 [email or web address] Vomiting No 03/16/25 12:51 [email or web address] Anesthesia Postop Eval I: Fluid Summary Crystalloid volume administer 300 03/16/25 12:51 [email or web address] (ml) Colloids volume administered ( ml) Blood Product volume administered (ml) Total IV fluid infused 300 03/16/25 12:51 [email or web address] Anesthesia Postop Eval I: Summary Notes Anesthesia Complication No 03/16/25 12:51 [email or web address] Anesthesia Complication Comment: Post-operative progress note Anesthesia: Postop Eval II Evaluation Mental status: Awake Pain Level: 0 nausea: No Vomiting: No 03/16/25 1301 > Date _ Tyler Aviles Signature: Date CC: ~ Signed [facility]05-02-2025 Consult note [facility] Medical Records Department [address] [place] [address] Anesthesia Postop Eval I 03/16/25 1251 MR#: [id number] Acct: [id number] Name: MISAEL MEDINA Rep #:[id number] : 1950 74 From: Santiago ROSAS PCP: Dr. Donal Will MD Status:ADM IN Y Race: C Location: [place] [address] 06-15 Anesthesia: Postop Eval I Current Vital Signs Temperature: 96.8 F Pulse Rate: 68 Blood Pressure: 121/53 Respiratory Rate: 18 Pulse Ox: 94 Assessment Airway patent: Yes Spontaneous unlabored respirations: Yes nausea: No Vomiting: No Anesthesia Complication: No Fluid Hydration Crystalloid volume administer (ml): 300 Total IV fluid infused: 300 Progress Note Anesthesia document: Postop Eval 1 completed: Yes 03/16/25 1251 GARDENER> Date _ Santiago Christianson GARDENER Cosigner Signature: Date CC: ~ Signed [facility]05-02-2025 Consult note Author Tyler Juan [facility] Note Date/Time March 16, 2025 10:22a m [facility] Medical Records Department [address] [place] [address] Pre-Anesthesia Evaluation 03/16/25 1021 MR#: [id number] Acct: [id number] Name: MISAEL MEDINA Rep #:[id number] : 1950 74 From: Tyler Juan MD PCP: Dr. Donal Will MD Status:ADM IN Y Race: C Location: [place] [address] ASA Classification* ASA Classification ASA Classification: 3 [...] PT 15.5 SECONDS (11.7-14.9) H 03/15/25 10:05 05/12/09 Pre-Assessment Diagnosis/Proposed Procedure Planned Operative Procedure(s): insertion hemodialysis catheter Anesthesia History Anesthesia History - grip: Anesthesia History - grip Hx Hospitalization No 11/05/22 15:04 Any Problems [...] take am of surgery PONV PONV - grip: PONV - grip Female HX of Motion Sickness HX of N/V After Surgery Non-Smoker Duration of Surgery greater than 60 minutes Number of Risk Factors PONV Score Height & Weight Height & Weight: Anesthesia: Height & Weight Height 4 ft 11.84 in 03/16/25 08:00 Weight: 121.8 kg 03/16/25 08:00 Body Mass Index (BMI) 52.7 03/16/25 08:00 Respiratory Assessment Respiratory Assessment - grip: Respiratory Tract Infection Hx - grip Hx Respiratory Tract Infection No 03/16/25 08:00 STOP Sleep Apnea STOP Sleep Apnea - grip: STOP Sleep Apnea - grip Hx Hypertension Yes 03/14/25 14:42 Hx Sleep [...] Tobacco Use History Tobacco Use History - grip: Tobacco Use History - grip Tobacco Use Smoking Status Never smoker 03/13/25 19:56 Hx Tobacco Use No 03/13/25 19:56 Years Smoking Packs Smoked per Day Smoking Cessation Date was within the last 15 years Hx Smoking Cessation Date Hx Smoking Cessation Counseling Hematologic Medial History Hematologic Hx - grip: 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 Hx of Blood Transfusion No 03/13/25 19:56 [...] confused, unrespo /Reproduction History /Reproductive History - grip: /Reproductive Hx- grip Hx Now No 03/16/25 08:00 Gestational Age [...] 6.25 Mg Tablet PO 6.25 mg BIDCM OYLI Administration Protocol Hemodialysis Solution 6 bag 03/15/25 10:45 03/15/25 13:33 Pureflow B 2k Dialysis Soln 1 Bag PF 03/16/25 12:39 Not Given UD [facility] Protocol Heparin Sodium (Porcine) 1,000 - 3,000 [...] PRN to maintain SBP >90mmHg during Dialysis [facility] Medical History Congestive heart failure Hypothyroidism Osteoporosis [...] MD Cosigner Signature: Date CC: ~ Signed [facility] Work Phone: 1(245) 478-616605-02-2025 Consult note [facility] Medical Records Department [address] [place] [address] Pre-Anesthesia Evaluation 03/16/25 1021 MR#: [id number] Acct: [id number] Name: MISAEL MEDINA Rep #:[id number] : 1950 74 From: Tyler Juan MD PCP: Dr. Donal Will MD Status:ADM IN Y Race: C Location: [place] [address] ASA Classification* ASA Classification ASA Classification: 3 [...] PT 15.5 SECONDS (11.7-14.9) H 03/15/25 10:05 12/09 Pre-Assessment Diagnosis/Proposed Procedure Planned Operative Procedure(s): insertion hemodialysis catheter Anesthesia History Anesthesia History - grip: Anesthesia History - grip Hx Hospitalization No 11/05/22 15:04 Any Problems [...] take am of surgery PONV PONV - grip: PONV - grip Female HX of Motion Sickness HX of N/V After Surgery Non-Smoker Duration of Surgery greater than 60 minutes Number of Risk Factors PONV Score Height & Weight Height & Weight: Anesthesia: Height & Weight Height 4 ft 11.84 in 03/16/25 08:00 Weight: 121.8 kg 03/16/25 08:00 Body Mass Index (BMI) 52.7 03/16/25 08:00 Respiratory Assessment Respiratory Assessment - grip: Respiratory Tract Infection Hx - grip Hx Respiratory Tract Infection No 03/16/25 08:00 STOP Sleep Apnea STOP Sleep Apnea - grip: STOP Sleep Apnea - grip Hx Hypertension Yes 03/14/25 14:42 Hx Sleep [...] Tobacco Use History Tobacco Use History - grip: Tobacco Use History - grip Tobacco Use Smoking Status Never smoker 03/13/25 19:56 Hx Tobacco Use No 03/13/25 19:56 Years Smoking Packs Smoked per Day Smoking Cessation Date was within the last 15 years Hx Smoking Cessation Date Hx Smoking Cessation Counseling Hematologic Medial History Hematologic Hx - grip: 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 Hx of Blood Transfusion No 03/13/25 19:56 [...] confused, unrespo /Reproduction History /Reproductive History - grip: /Reproductive Hx- grip Hx Now No 03/16/25 08:00 Gestational Age [...] Bag PF 03/16/25 12:39 Not Given UD [facility] Protocol Heparin Sodium (Porcine) 1,000 - 3,000 [...] 100 Unit/Ml Insuln.Pen SC Not Given ACHS [facility] Protocol Levothyroxine Sodium 100 mcg 03/14/25 06:00 03/16/25 06:20 Levothyroxine 100 Mcg Tablet PO 100 mcg DAILY@0600 [facility] Administration Nystatin 1 applic 03/13/25 22:00 03/16/25 [...] PRN to maintain SBP >90mmHg during Dialysis [facility] Medical History Congestive heart failure Hypothyroidism Osteoporosis [...] MD Cosigner Signature: Date CC: ~ Signed [facility]05-01-2025 Progress note Author Seth [facility] Note Date/Time March 15, 2025 12:28p [facility] Medical Records Department [address] [place] [address] Progress Note - Hospitalist 03/15/25 1024 MR#: [id number] Acct: [id number] Name: MISAEL MEDINA Rep #:[id number] : 1950 74 From: Seth mai DO PCP: Dr. Donal Will MD Status:ADM IN Location: [place] [address] Reason for Visit Reason for Visit: Diagnoses [...] No hydronephrosis to suggest obstruction. Reading Location: [facility] Physical Exam Const alert and no [...] is a 74-year-old female who presented to [facility] ED on 03/13/2025 with fatigue [...] 35 minutes. Charges/Coding Visit Charges Inpatient E&M: 54118 Subs Hosp L2 03/15/25 1221 <Electronically signed by Seth Garnica DO> Cosigner Signature (if applicable): CC: ~ Signed [facility] Work Phone: 1([phone]) 233-365905-01-2025 Consult note Author Joao Francois [facility] Note Date/Time March 15, 2025 11:48a m [facility] Medical Records Department [address] [place], [place] [id number] Consultation - Surgical 03/15/25 1056 MR#: [id number] Acct: [id number] Name: MISAEL MEDINA Rep #:[id number] 73 : 1950 74 From: Joao Chinchilla PCP: Dr. Donal Will MD Status:ADM [facility] Assessment & Plan Assessment/Plan (1) Acute [...] Francois MD General Surgery Endocrine Surgery Pager: [facility] [address] [place] [address], [address] [place] [address] Office: [phone] HPI Consult Data Date of Consult: 03/15/25 HPI Narrative Reason for Consultation: Consideration of tunneled hemodialysis catheter insertion HPI Narrative: MISAEL MEDINA, is a 74 F who presented to [facility] on direction from cardiology after [...] no history of prior central line placement. [facility] Medical History Congestive heart failure Hypothyroidism Osteoporosis [...] No hydronephrosis to suggest obstruction. Reading Location: [id number] Charges/Coding Visit Charges Inpatient E&M: 90711 Init Hosp L2 03/15/25 1148 <Electronically signed by Joao Francois MD> Cosigner Signature (if applicable): CC: Dr. Donal Will MD~ Signed [facility] Work Phone: 1(411) 724-320405-01-2025 Progress note [facility] Medical Records Department [address] [place] [address] Progress Note - Hospitalist 03/15/25 1024 MR#: [id number] Acct: [id number] Name: MISAEL MEDINA Rep #:[id number] 22 : 1950 74 From: Seth Aliyah ami DO PCP: Dr. Donal Will MD Status:ADM IN Location: [place] [address]- 1 Reason for Visit Reason for Visit: [...] No hydronephrosis to suggest obstruction. Reading Location: [facility] Physical Exam Const alert and no [...] is a 74-year-old female who presented to [facility] ED on 03/13/2025 with fatigue [...] 35 minutes. Charges/Coding Visit Charges Inpatient E&M: 77315 Subs Hosp L2 03/15/25 1228 Cosigner Signature (if applicable): CC: ~ Signed [facility]05-01-2025 Consult note [facility] Medical Records Department [address] [place] [address] Consultation - Surgical 03/15/25 1056 MR#: [id number] Acct: [id number] Name: MISAEL MEDINA Rep #:[id number] 73 : 1950 74 From: Joao Chinchilla PCP: Dr. Donal Will MD Status:ADM IN Location: [place] [address] Assessment & Plan Assessment/Plan (1) Acute on [...] Francois MD General Surgery Endocrine Surgery Pager: [facility] [address] [place] [address], [facility], [address] [place] [address] Office: [phone] HPI Consult Data Date of Consult: 03/15/25 HPI Narrative Reason for Consultation: Consideration of tunneled hemodialysis catheter insertion HPI Narrative: MISAEL MEDINA, is a 74 F who presented to [facility] on direction from cardiology after [...] no history of prior central line placement. [facility] Medical History Congestive heart failure Hypothyroidism Osteoporosis [...] No hydronephrosis to suggest obstruction. Reading Location: [id number] Charges/Coding Visit Charges Inpatient E&M: 96755 Init Hosp L2 03/15/25 1148 Cosigner Signature (if applicable): CC: Dr. Donal Will MD~ Signed [facility]04-30-2025 Radiology Diagnostic study note [facility] [address] [place] [address] Kidney and Bladder MR#: [id number] Acct: [id number] Name: JONAHJAQUELINEDAVIDMISAEL D Rep #: [id number] 57 : 1950 F 74 From: Jm Minaya MD PCP: Dr. Donal Will MD Status: ADM IN Study:Kidney and Bladder Date of Exam: 0 03/14/25 Exam# [id number] Ordering Dr: Kurtis Gupta MD PROCEDURE: KIDNEY AND BLADDER 03/14/2025 REASON FOR EXAM: JOSUE TECHNIQUE: Bilateral renal ultrasound. FINDINGS: Kidneys: Normal renal sizes, parenchymal thicknesses, and echotextures. [place]: None Cysts or Masses: None Other: RIGHT [...] No hydronephrosis to suggest obstruction. Reading Location: [facility] CC: Dr. Donal Will MD; Dr. Lorraine Gupta MD ~ Wellness Manager: Signed [facility]04-30-2025 Progress note Author Seth Garnica [facility] Note Date/Time March 14, 2025 3:0 3pm [facility] Medical Records Department [address] [place] [address] Progress Note - Hospitalist 03/14/25 1128 MR#: [id number] Acct: [id number] Name: MISAEL MEDINA Rep #:[id number] 78 : 1950 74 From: Seth mai DO PCP: Dr. Donal Will MD Status:ADM IN Location: [place] [address]- 1 Reason for Visit Reason for Visit: [...] (Auto) 79.2 H, Lymph % (Auto) 11.5L, Grainger % (Auto) 7.8, Eos % (Auto) 0.6, [...] 159 H*, [place] II > [address] H 03/13/25 17:30: Troponin T Hi Sens 2 Hr 159 H*, Urine Color Yellow, Urine Clarity Cloudy, Urine pH 5.0, Ur Specific Bishop 1.025, Urine Protein 100 H, Urine Glucose [...] (Auto) 76.2 H, Lymph % (Auto) 14.0L, Grainger % (Auto) 7.7, Eos % (Auto) 1.1, [...] with central vascular prominence and at least cnpkj-er-zwwnbyqf RIGHT pleural effusion. 2. RIGHT-sided airspace disease adjacent to the effusion may reflect compressiveatelectasis and/or pneumonia. Follow-up to radiographic resolution recommended. 3. Additional description as above. Reading Location: [facility] Physical Exam Const alert and [...] is a 74-year-old female who presented to [facility] ED on 03/13/2025 with fatigue [...] 50 minutes. Charges/Coding Visit Charges Inpatient E&M: 70928 Subs Hosp L3 03/14/25 1503 <Electronically signed by Seth Garnica DO> Cosigner Signature (if applicable): CC: ~ Signed [facility] Work Phone: 1(636) 461-107404-30-2025 Consult note Author Lorraine Gupta [facility] Note Date/Time March 14, 2025 2:1 3pm [facility] Medical Records Department [address] [place] [address] Consultation - Nephrology 03/14/25 1409 MR#: [id number] Acct: [id number] Name: JONAHJAQUELINEMISAEL D Rep #:[id number] 03 : 1950 74 From: Lorraine reyez MD PCP: Dr. Donal Will MD Status:ADM IN Location: [place] [address] Assessment & Plan Assessment/Plan (1) Acute kidney [...] is any new medications. Denies taking NSAIDs, qcpc-ddu-akynzlq supplements. When I asked her about recent [...] before. She does take diuretics at home. [facility] Medical History Congestive heart failure Hypothyroidism Osteoporosis [...] (Auto) 79.2 H, Lymph % (Auto) 11.5L, Grainger % (Auto) 7.8, Eos % (Auto) 0.6, [...] 159 H*, [place] II > [address]19 H 03/13/25 17:30: Troponin T Hi Sens 2 Hr 159 H*, Urine Color Yellow, Urine Clarity Cloudy, Urine pH 5.0, Ur Specific Bishop 1.025, Urine Protein 100 H, Urine Glucose [...] (Auto) 76.2 H, Lymph % (Auto) 14.0L, Grainger % (Auto) 7.7, Eos % (Auto) 1.1, [...] with central vascular prominence and at least ixhyg-ay-hhxmumyx RIGHT pleural effusion. 2. RIGHT-sided airspace disease adjacent to the effusion may reflect compressiveatelectasis and/or pneumonia. Follow-up to radiographic resolution recommended. 3. Additional description as above. Reading Location: [id number] 03/14/25 1413 <Electronically signed by Lorraine Gupta MD> Cosigner Signature (if applicable): CC: Dr. Donal Will MD~ Signed [facility] Work Phone: 1(528) 735-933204-30-2025 Progress note [facility] Medical Records Department [address] [place] [address] Progress Note - Hospitalist 03/14/25 1128 MR#: [id number] Acct: [id number] Name: MISAEL MEDINA Rep #:[id number] 78 : 1950 74 From: Seth mai DO PCP: Dr. Donal Will MD Status:ADM IN Location: [place] [address]- Reason for Visit Reason for Visit: Diagnoses [...] (Auto) 79.2 H, Lymph % (Auto) 11.5L, Grainger % (Auto) 7.8, Eos % (Auto) 0.6, [...] 159 H*, NT pro BNP II > 17872 H 03/13/25 17:30: Troponin T Hi Sens 2 Hr 159 H*, Urine Color Yellow, Urine Clarity Cloudy, Urine pH 5.0, Ur Specific Bishop 1.025, Urine Protein 100 H, Urine Glucose [...] (Auto) 76.2 H, Lymph % (Auto) 14.0L, Grainger % (Auto) 7.7, Eos % (Auto) 1.1, [...] with central vascular prominence and at least dyzfu-vk-xarbjxll RIGHT pleural effusion. 2. RIGHT-sided airspace disease adjacent to the effusion may reflect compressiveatelectasis and/or pneumonia. Follow-up to radiographic resolution recommended. 3. Additional description as above. Reading Location: [facility] Physical Exam Const alert and [...] is a 74-year-old female who presented to [facility] ED on 03/13/2025 with fatigue [...] 50 minutes. Charges/Coding Visit Charges Inpatient E&M: 93129 Subs Hosp L3 03/14/25 1504 Cosigner Signature (if applicable): CC: ~ Signed [facility]04-30-2025 Consult note [facility] Medical Records Department [address] [place] [address] Consultation - Nephrology 03/14/25 1401 MR#: [id number] Acct: [id number] Name: MISAEL MEDINA Rep #:[id number] 03 : 1950 74 From: Lorraine reyez MD PCP: Dr. Donal Will MD Status:ADM IN [facility] Assessment & Plan Assessment/Plan (1) Acute [...] and this showed elevated creatinine, elevated potassium andshbabak was referred to the ER. Reviewed medication list, no known medications such as potassium supplements. She is a poor historian. Does not exactly know all the medications that she is taking right now. Does not think there is any new medications. Denies taking NSAIDs, yaab-ikk-ahjwsbq supplements.When I asked her about recent medical [...] before. She does take diuretics at home. [facility] Medical History Congestive heart failure Hypothyroidism Osteoporosis [...] (Auto) 79.2 H, Lymph % (Auto) 11.5L, Grainger % (Auto) 7.8, Eos % (Auto) 0.6, [...] 159 H*, NT [place] BNP II > 15424 H 03/13/25 17:30: Troponin T Hi Sens 2 Hr 159 H*, Urine Color Yellow, Urine Clarity Cloudy, Urine pH 5.0, Ur Specific Bishop 1.025, Urine Protein 100 H, Urine Glucose [...] (Auto) 76.2 H, Lymph % (Auto) 14.0L, Grainger % (Auto) 7.7, Eos % (Auto) 1.1, [...] with central vascular prominence and at least sortl-hi-cyexdwbe RIGHT pleural effusion. 2. RIGHT-sided airspace disease adjacent to the effusion may reflect compressiveatelectasis and/or pneumonia. Follow-up to radiographic resolution recommended. 3. Additional description as above. Reading Location: [id number] 03/14/25 1413 Cosigner Signature (if applicable): CC: Dr. Donal Will MD~ Signed [facility]04-30-2025 Progress note Author Lorraine Gupta [facility] Note Date/Time March 14, 2025 11: 17am [facility] Medical Records Department [address] [place] [address] Progress Note 03/14/25 1115 MR#: [id number] Acct: [id number] Name: MISAEL MEDINA Rep #:[id number] 48 : 1950 74 From: Lorraine reyez MD PCP: Dr. Donal Will MD Status:ADM IN Location: [place] [address] Progress Note Came in as a routine consult this am for JSOUE. I was notified by Toyin mendez today around 9 am about K being high. Called and spoke to Dr Cottrell, coveringhospitalist. baseline cr 1.7. now more than 5. no reason to suspect urinary retention as per Dr Cottrell. renal US ordered K is 7.4 and bicarbonate 15 insulin dextrose sodium bicarbonate kayexalate have all been ordered repeat K this afternoon. will review 03/14/25 1117 <Electronically signed by Lorraine Gupta MD> Lorraine Gupta MD Cosigner Signature (if applicable): CC: ~ Signed [facility] Work Phone: 1([phone]) 201-579704-30-2025 Progress note Author Ramone Adams [facility] Note Date/Time March 14, 2025 10: 17am [facility] Medical Records Department [address] [place] [address] Progress Note - Cardiology 03/14/25 0847 MR#: [id number] Acct: [id number] Name: MISAEL MEDINA Rep #:[id number] 13 : 1950 74 From: Ramone Adams MD PCP: Dr. Donal Will MD Status:ADM IN Location: [place] [address] Subjective Subjective Patient seen and evaluated this [...] (Auto) 79.2 H, Lymph % (Auto) 11.5L, Grainger % (Auto) 7.8, Eos % (Auto) 0.6, [...] 159 H*, [place]NP II > 56021 H 03/13/25 17:30: Troponin T Hi Sens 2 Hr 159 H*, Urine Color Yellow, Urine Clarity Cloudy, Urine pH 5.0, Ur Specific Bishop 1.025, Urine Protein 100 H, Urine Glucose [...] (Auto) 76.2 H, Lymph % (Auto) 14.0L, Grainger % (Auto) 7.7, Eos % (Auto) 1.1, [...] 79.2 H, Lymph % (Auto) 11.5 L, Grainger % (Auto) 7.8, Eos % (Auto) 0.6, Baso % (Auto) 0.3, Absolute Neuts (auto) 6.1, Nucleated RBC % 1.9, Sodium 141, Potassium 6.7 H*, Chloride 114 H, Carbon Dioxide 16.6 L, Anion Gap 11, BUN 88 H, Creatinine 5.10 H, Est GFR (MDRD) Non-Af 8 L, BUN/Creatinine Ratio 17.3, Fcejdzc752 H, Calcium 8.5, Phosphorus 5.5 H, Magnesium 2.6 H 03/13/25 17:30: Urine Color Yellow, Urine Clarity Cloudy, Urine pH 5.0, Ur Specific Bishop 1.025, Urine Protein 100 H, Urine Glucose [...] 76.2 H, Lymph % (Auto) 14.0 L, Grainger % (Auto) 7.7, Eos % (Auto) 1.1, Baso % (Auto) 0.3, Absolute Neuts (auto) 5.7, Nucleated RBC % 1.7, Sodium 140, Potassium 7.4 H*, Chloride 114 H, Carbon Dioxide 15.1 L, Anion Gap 11, BUN 92 H, Creatinine 5.38 H, Est GFR (MDRD) Non-Af 8 L, BUN/Creatinine Ratio 17.1, Aillqaw35, Calcium 8.9 Rhythm: EKG: ECHO: Stress Test: Cardiac Cath: PCI: CT Surgery: Holter monitor: EPS: PPM: CXR: Chest CT Scan: Radiography Diagnostic Testing: Radiology Impression Chest X-Ray 03/13/25 16:45 IMPRESSION: 1. Limited hypoinflated exam. Cardiomegaly with central vascular prominence and at least prskp-zm-hqoliffv RIGHT pleural effusion. 2. RIGHT-sided airspace disease adjacent to the effusion may reflect compressiveatelectasis and/or pneumonia. Follow-up to radiographic resolution recommended. 3. Additional description as above. Reading Location: [facility] Physical Exam Const alert, oriented [...] Cosigner Signature (if applicable): CC: ~ Signed [facility] Work Phone: 1(698) 494-886104-30-2025 Progress note [facility] Medical Records Department [address] [place] [address] Progress Note 03/14/25 1115 MR#: [id number] Acct: [id number] Name: MISAEL MEDINA Rep #:[id number] 48 : 1950 74 From: Lorraine reyez MD PCP: Dr. Donal Will MD Status:ADM IN Location: [place] [address] Progress Note Came in as a routine [...] this afternoon. will review 03/14/25 1117 Lorraine Gupta MD Cosigner Signature (if applicable): CC: ~ Signed [facility]04-30-2025 Progress note [facility] Medical Records Department [address] [place] [address] Progress Note - Cardiology 03/14/25 0847 MR#: [id number] Acct: [id number] Name: MISAEL MEDINA Rep #:[id number] 13 : 1950 74 From: Ramone Adams MD PCP: Dr. Donal Will MD Status:ADM IN Location: [place] [address] Subjective Subjective Patient seen and evaluated this [...] (Auto) 79.2 H, Lymph % (Auto) 11.5L, Grainger % (Auto) 7.8, Eos % (Auto) 0.6, [...] 159 H*, [place] II > 24162 H 03/13/25 17:30: Troponin T Hi Sens 2 Hr 159 H*, Urine Color Yellow, Urine Clarity Cloudy, Urine pH 5.0, Ur Specific Bishop 1.025, Urine Protein 100 H, Urine Glucose [...] (Auto) 76.2 H, Lymph % (Auto) 14.0L, Grainger % (Auto) 7.7, Eos % (Auto) 1.1, [...] 79.2 H, Lymph % (Auto) 11.5 L, Grainger % (Auto) 7.8, Eos % (Auto) 0.6, Baso % (Auto) 0.3, Absolute Neuts (auto) 6.1, Nucleated RBC % 1.9, Sodium 141, Potassium 6.7 H*, Chloride 114 H, Carbon Dioxide 16.6 L, Anion Gap 11, BUN 88 H, Creatinine 5.10 H, Est GFR (MDRD) Non-Af 8 L, BUN/Creatinine Ratio 17.3, Elimcrz197 H, Calcium 8.5, Phosphorus 5.5 H, Magnesium 2.6 H 03/13/25 17:30: Urine Color Yellow, Urine Clarity Cloudy, Urine pH 5.0, Ur Specific Bishop 1.025, Urine Protein 100 H, Urine Glucose [...] 76.2 H, Lymph % (Auto) 14.0 L, Grainger % (Auto) 7.7, Eos % (Auto) 1.1, Baso % (Auto) 0.3, Absolute Neuts (auto) 5.7, Nucleated RBC % 1.7, Sodium 140, Potassium 7.4 H*, Chloride 114 H, Carbon Dioxide 15.1 L, Anion Gap 11, BUN 92 H, Creatinine 5.38 H, Est GFR (MDRD) Non-Af 8 L, BUN/Creatinine Ratio 17.1, Nczglsc08, Calcium 8.9 Rhythm: EKG: ECHO: Stress Test: Cardiac Cath: PCI: CT Surgery: Holter monitor: EPS: PPM: CXR: Chest CT Scan: Radiography Diagnostic Testing: Radiology Impression Chest X-Ray 03/13/25 16:45 IMPRESSION: 1. Limited hypoinflated exam. Cardiomegaly with central vascular prominence and at least iukpa-xg-qeonndvi RIGHT pleural effusion. 2. RIGHT-sided airspace disease adjacent to the effusion may reflect compressiveatelectasis and/or pneumonia. Follow-up to radiographic resolution recommended. 3. Additional description as above. Reading Location: [facility] Physical Exam Const alert, oriented [...] Cosigner Signature (if applicable): CC: ~ Signed [facility]04-30-2025 Discharge summary Author Fitz Deleon [facility] Note Date/Time March 13, 2025 11: 45pm [facility] Medical Records Department [address] [place] [address] Emergency Department Summary 03/13/25 MR#: [id number] Acct: [id number] Name: MISAEL MEDINA Rep #:[id number] : 1950 74 From: Fitz Espinosa PCP: Dr. Donal Will MD Status:ADM IN Location: [address] History of Present Illness Chief Complaint: Abn Labs Informant: patient Onset/Context/Timing Onset: Yesterday Context: Gradual Onset Timing: Continuous Quality: Weakness Location: Generalized Worsened by: Nothing Relieved by: Nothing Narrative Narrative: Patient presents with abnormal labs that were noticed yesterday. Patient had anappoint with her line technician yesterday who jeovanny labs. Patient states they called her today and told her to come to the emergency department because her potassium was high and her kidney function tests were worse. Patient states shefeels weak all over. Patient states nothing makes her symptoms better and nothing makes them worse. Patient admits to some shortness of breath. PFSH [facility] Medical History Congestive heart failure Hypothyroidism Osteoporosis [...] 79.2 H Lymph % (Auto) 11.5 L Grainger % (Auto) 7.8 Eos % (Auto) 0.6 [...] 159 H* NT [place]NP II > 89798 H Urine Color Yellow Urine Clarity Cloudy Urine pH 5.0 Ur Specific Bishop 1.025 Urine Protein 100 H Urine Glucose [...] with central vascular prominence and at least afhha-oe-svhjxzua RIGHT pleural effusion. 2. RIGHT-sided airspace disease adjacent to the effusion may reflect compressiveatelectasis and/or pneumonia. Follow-up to radiographic resolution recommended. 3. Additional description as above. Reading Location: [facility] PA and lateral chest x-ray was obtained. There are 2 views. On my independent interpretation, lung ye show vascular prominence and small to moderate [...] sinus rhythm with a rate of 73. MS interval, QRS interval, and QTc intervals were all normal. There is borderline right axis deviation at 117. There are nonspecific ST-T wave changes. Prior EKG tracings: available for review Prior: Unchanged (10/30/2024) Management Discussion w/another healthcare provider: Hospitalist and Cd Manufacturing Supervisor (Dr. Linares) Treatment and Re-Evaluation :: Patient [...] Qty: 90 0RF Primary Care Provider: Donal Will Referrals: Donal Will MD [Primary Care Provider] - Print Language: Zambian Disposition Disposition: Acute Care Hospital [facility] What to do if you have Problems For any increased pain, shortness of breath, bleeding, nausea or vomiting, chestpain, or any unexpected problems, contact your Primary Care Provider. Call [facility] ([phone]) or report to the closest Emergency Room. Call 911 if necessary. 03/13/251 <Electronically signed by Fitz Deleon DO> Cosigner Signature (if applicable): CC: Dr. Donal Will MD ~ Signed [facility] Work Phone: 1(289) 211-544004-29-2025 Discharge summary [facility] Medical Records Department [address] [place] [address] Emergency Department Summary 03/13/25 MR#: [id number] Acct: [id number] Name: MISAEL MEDINA Rep #:[id number] : 1950 74 From: Fitz Espinosa PCP: Dr. Donal Will MD Status:ADM IN Location: [address] History of Present Illness Chief Complaint: Abn Labs Informant: patient Onset/Context/Timing Onset: Yesterday Context: Gradual Onset Timing: Continuous Quality: Weakness Location: Generalized Worsened by: Nothing Relieved by: Nothing Narrative Narrative: Patient presents with abnormal labs that were noticed yesterday. Patient had anappoint with her line technician yesterday who jeovanny labs. Patient states they called her today and told her to come to the emergency department because her potassium was high and her kidney function tests were worse. Patient states shefeels weak all over. Patient states nothing makes her symptoms better and nothing makes them worse. Patient admits to some shortness of breath. [facility] Medical History Congestive heart failure [...] 79.2 H Lymph % (Auto) 11.5 L Grainger % (Auto) 7.8 Eos % (Auto) 0.6 [...] 159 H* NT pro BNP II > 07778 H Urine Color Yellow Urine Clarity Cloudy Urine pH 5.0 Ur Specific Bishop 1.025 Urine Protein 100 H Urine Glucose [...] with central vascular prominence and at least edwfx-lv-hzpdajqo RIGHT pleural effusion. 2. RIGHT-sided airspace disease adjacent to the effusion may reflect compressiveatelectasis and/or pneumonia. Follow-up to radiographic resolution recommended. 3. Additional description as above. Reading Location: [facility] PA and lateral chest x-ray was obtained. There are 2 views. On my independent interpretation, lung ye show vascular prominence and small to moderate [...] anormal sinus rhythm with arate of 73. MS interval, QRS interval, and QTc intervals were all normal. There is borderline rightaxis deviation at 117. There are nonspecific ST-T wave changes. Prior EKG tracings: available for review Prior: Unchanged (10/30/2024) Management Discussion w/another healthcare provider: Hospitalist and Cd Manufacturing Supervisor (Dr. Linares) Treatment and Re-Evaluation :: Patient [...] Qty: 90 0RF Primary Care Provider: Donal Will Referrals: Donal Will MD [Primary Care Provider] - Print Language: Zambian Disposition Disposition: Acute Care Hospital [facility] What to do if you have Problems For any increased pain, shortness of breath, bleeding, nausea or vomiting, chestpain, or any unexpected problems, contact your Primary Care Provider. Call [facility] ([phone]) or report tothe closest Emergency Room. Call 911 if necessary. 03/13/252344 Cosigner Signature (if applicable): CC: Dr. Donal Will MD ~ Signed [facility]04-29-2025 History and physical note Author Milton Muñoz [facility] Note Date/Time March 13, 2025 7:1 0pm [facility] Medical Records Department [address] [place] [address] H&P Exam - Hospitalist 03/13/25 1837 MR#: [id number] Acct: [id number] Name: MISAEL MEDINA Rep #:[id number] : 1950 74 From: Milton harper MD PCP: Dr. Donal Will MD Status:ADM IN Location: [facility] [id number]- 1 HPI - General General Date of [...] denies any nausea, or vomiting, or diarrhea. [facility] Medical History Congestive heart failure Hypothyroidism Osteoporosis [...] mg PO DAILYCM 90 days #90 tabs 12/07/24 04/29/25 Rx carvedilol 6.25 mg tablet (Coreg) 6.25 [...] (Auto) 79.2 H, Lymph % (Auto) 11.5L, Grainger % (Auto) 7.8, Eos % (Auto) 0.6, [...] 159 H*, NT [place]NP II > 95616 H 03/13/25 17:30: Troponin T Hi Sens 2 Hr 159 H*, Urine Color Yellow, Urine Clarity Cloudy, Urine pH 5.0, Ur Specific Bishop 1.025, Urine Protein 100 H, Urine Glucose [...] with central vascular prominence and at least xvdpo-fu-ubslwknz RIGHT pleural effusion. 2. RIGHT-sided airspace disease adjacent to the effusion may reflect compressiveatelectasis and/or pneumonia. Follow-up to radiographic resolution recommended. 3. Additional description as above. Reading Location: [facility] Assessment & Plan Assessment/Plan (1) Acute kidney [...] with colleagues Charges/Coding Visit Charges Inpatient E&M: 33667 Init Hosp L3 03/13/251909 <Electronically signed by Milton Muñoz MD> Cosigner Signature (if applicable): CC: Dr. Donal Will MD; Dr. Milton Muñoz MD~ Signed [facility] Work Phone: 1(402) 894-698604-29-2025 History and physical note [facility] Medical Records Department [address] [place] [address] H&P Exam - Hospitalist 03/13/25 1839 MR#: [id number] Acct: [id number] Name: MISAEL MEDINA Rep #:[id number] : 1950 74 From: Milton harper MD PCP: Dr. Donal Will MD Status:ADM IN [facility] HPI - General General Date of [...] denies any nausea, or vomiting, or diarrhea. [facility] Medical History Congestive heart failure Hypothyroidism Osteoporosis [...] RDW StdDeviation 57.1 H, RDW Coeff of Elif 17.4 H, Plt Count 241, MPV 9.4, Immature Gran % (Auto) 0.600, Neut % (Auto) 79.2 H, Lymph % (Auto) 11.5L, Grainger % (Auto) 7.8, Eos % (Auto) 0.6, [...] 159 H*, NT pro BNP II > [address] H 03/13/25 17:30: Troponin T Hi Sens 2 Hr 159 H*, Urine Color Yellow, Urine Clarity Cloudy, Urine pH 5.0, Ur Specific Bishop 1.025, Urine Protein 100 H, Urine Glucose [...] with central vascular prominence and at least bzfhs-si-jpiszela RIGHT pleural effusion. 2. RIGHT-sided airspace disease adjacent to the effusion may reflect compressiveatelectasis and/or pneumonia. Follow-up to radiographic resolution recommended. 3. Additional description as above. Reading Location: [id number] Assessment & Plan Assessment/Plan (1) Acute kidney [...] with colleagues Charges/Coding Visit Charges Inpatient E&M: 98335 Init Hosp L3 03/13/251909 Cosigner Signature (if applicable): CC: Dr. Donal Will MD; Dr. Milton Muñoz MD~ Signed [facility]04-29-2025 Radiology Diagnostic study note [facility] Imaging Services [address] [place] [address] Chest PA and Lateral MR#: [id number] Acct: [id number] Name: MISAEL MEDINA Rep #: [id number] : 1950 F 74 From: Madeleine Christiansen MD PCP: Dr. Donal Will MD Status: REG ER Study:Chest PA and Lateral Date of Exam: 03/13/25 Exam# [id number] Ordering Dr: Fitz Deleon DO PROCEDURE: CHEST [...] Lungs/pleura: Hypoinflation with vascular crowding. At least chaga-bl-rljqwjvt RIGHT pleural effusion with fluid extending into the fissures. Adjacent RIGHT mid and lower lung airspace disease. No sizable LEFT pleural or visible pneumothorax. Bones: Suspect demineralization.. Lines and support devices: None. Other: None. RAD/Chest PA and Lateral IMPRESSION: 1. Limited hypoinflated exam. Cardiomegaly with central vascular prominence and at least rmhij-oq-boudzpjn RIGHT pleural effusion. 2. RIGHT-sided airspace disease adjacent to the effusion may reflect compressiveatelectasis and/or pneumonia. Follow-up to radiographic resolution recommended. 3. Additional description as above. Reading Location: [id number] CC: Dr. Donal Will MD; Dr. Fitz Deleon DO ~ Wellness Manager: Signed [facility]04-28-2025 Evaluation note* Diagnosis Onset Date [...] glomerular filtration deleted March 13, 2025 6:27pm [place] [employer] Work Phone: 1(601) [phone] Evaluation note* Diagnosis Onset Date Resolution Status [...] 2025 11:31am Hypertension chronic May 16 11:31am [place] [employer] Work Phone: [phone]) 545-788704-28-2025 Evaluation note* Diagnosis Onset Date Resolution Status [...] 2025 6:27pm Acute kidney injury superimposed on chronic kidney disease resolved March 13, 2025 6:27pm Acute on chronic renal failure resol tati March 13, 2025 6:27pm Hyperkalemia resolved March 13, 2025 6:27pm 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 No specimens.[facility]04-03-2025 Instructions* Patient Instructions* Sergo Chirinos MD, PhD [...] than dabbing lightly with a tissue An xcox-nkd-gmwrhts pain reliever (i.e. Tylenol) can be used [...] If it is after hours please call [phone] which will give instructions on how to reach the eye doctor supervisory air intercept controller documented in this encounterAdena Health System04-03-2025 NoteDate of Procedure 02/15/2025. Interpretation Right Eye Findings include Enlarged ELLIOT, Vascular Remodeling. Left Eye Findings include Enlarged ELLIOT, Nonperfusion (Superficial Plexus), Nonperfusion (Deep Plexus), Vascular Remodeling.[id number] NoteDate of Procedure 02/15/2025. OCT Macula Interpretation Right Eye Normal without fluid. Left Eye Abnormal foveal contour. Findings include Atrophy.[id number] NoteHNO ID: [id number] Author: SERGO CHIRINOS MD, PhD Service: ? Author Type: Physician Type: Progress Notes Filed: 02/15/2025 13:28 Note Text: Patient of Dr. Chirinos 0. 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 Liz, both eyes done end of 2022 Plan: [...] all of its relevant components. Sergo Chirinos [facility]04-03-2025 History of Present illness Narrative* Sergo Chirinos MD, PhD - 02/15/2025 12:07 PM EDT Patient of Dr. Chirinos 0. 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 Liz, both eyes done end of 2022 Plan: [...] components. Sergo Chirinos MD documented in this encounterAdena Health System01-17-2025 Evaluation note* Diagnosis Onset Date Resolution Status [...] disease chronic March 13, 2025 6:27pm [facility] Work Phone: 1(728) 398-398501-17-2025 Evaluation note* Diagnosis Onset Date Resolution Status [...] 13, 2025 6:27pm Pulmonary hypertension acute Ap 2024 6:27pm Right hallux osteomyelitis acute March [...] Hyperkalemia resolved March 13, 2025 6:27pm [facility] Work Phone: 1([phone]) 376-972801-16-2025 NoteDate of Procedure 11/30/2024 [place] Protocol Safety Checklist Sign In: A moment [...] for, Post-procedure follow up management communicated. No specimens.[facility]01-16-2025 Instructions* Patient Instructions* Sergo Chirinos MD, PhD [...] than dabbing lightly with a tissue An drls-gjd-dqbvdof pain reliever (i.e. Tylenol) can be used [...] If it is after hours please call [phone] which will give instructions on how to reach the eye doctor supervisory air intercept controller documented in this encounterAdena Health System01-16-2025 NoteDate of Procedure 11/30/2024. Sustainability Consultant Information Capsule Filler: [email or web address]. OCT Macula Interpretation Right Eye Normal without fluid. Left Eye Abnormal foveal contour. Findings include Atrophy.[id number] NoteHNO ID: [id number] Author: SERGO CHIRINOS MD, PhD Service: ? Author Type: Physician Type: Progress Notes Filed: 11/30/2024 10:26 Note Text: Patient of Dr. Chirinos 0. 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 Liz, both eyes done end of 2022 Plan: [...] all of its relevant components. Sergo Chirinos [facility]01-16-2025 History of Present illness Narrative* Sergo Chirinos MD, PhD - 11/30/2024 9:27 AM EST Patient of Dr. Chirinos 0. 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 Liz, both eyes done end of 2022 Plan: [...] components. Sergo Chirinos MD documented in this encounterAdena Health System12-19-2024 [facility]12-07-2024 [facility]12-04-2024 Evaluation note* Diagnosis Onset Date Resolution Status Admit Date High cholesterol acute October 18, 2024 12:29am LV dysfunction acute October 182023 12:29am Pulmonary hypertension acute De cember 2023 12:29am Acute hypoxemic respiratory failure resolved October [...] 2024 6:01pm Aortic valve stenosis acute [facility] 2024 10:15am High cholesterol acute December 01, 2024 10:15am LV dysfunction acute December 012024 10:15am Pulmonary hypertension acute [facility] 2024 10:15am Chronic renal disease, stage 3, moderately decreased glomerular filtration chronic December 012024 10:15am Hypertension chronic November 10:15am [facility] Work Phone: 1([phone]) 729-275011-21-2024 NoteDate of Procedure 10/05/2024 [place] Protocol Safety Checklist Sign In: A moment [...] for, Post-procedure follow up management communicated. No specimens.[facility]11-21-2024 Instructions* Patient Instructions* Sergo Chirinos MD, PhD [...] than dabbing lightly with a tissue An inbz-bhz-lvnqmqw pain reliever (i.e. Tylenol) can be used [...] If it is after hours please call [phone] which will give instructions on how to reach the eye doctor supervisory air intercept controller documented in this encounterAdena Health System11-21-2024 NoteDate of Procedure 10/05/2024. Sustainability Consultant Information Capsule Filler: re. Interpretation Right Eye Normal foveal contour. Findings include Intraretinal fluid. Left Eye Abnormal foveal contour. Findings include Atrophy.[id number] NoteHNO ID: [id number] Author: SERGO CHIRINOS MD, PhD Service: ? Author Type: Physician Type: Progress Notes Filed: 10/05/2024 17:01 Note Text: Patient of Dr. Chirinos 0. 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 Liz, both eyes done end of 2022 Plan: [...] and agree with all of its relevant components.[facility]11-21-20[facility] History of Present illness Narrative* Sergo Chirinos MD, PhD - 10/05/2024 3:38 PM EST Patient of Dr. Chirinos 0. 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 Liz, both eyes done end of 2022 Plan: [...] all ofits relevant components. documented in this encounterAdena Health System10-23-2024 Instructions* Patient Instructions* Sarah Reilly II, OD [...] of its relevant components. documented in this encounterAdena Health System10-23-2024 NoteHNO ID: [id number] Author: SARAH REILLY II, OD Service: ? Author Type: FIRE LOSS PREVENTION ENGINEER Type: Progress Notes Filed: 09/06/2024 14:01 Note [...] and agree with all of its relevant components.[facility]10-23-2024 History of Present illness Narrative* Sarah [...] of its relevant components. documented in this encounterAdena Health System10-10-2024 NoteDate of Procedure 08/24/2024. Sustainability Consultant Information Capsule Filler: yefri. Interpretation Right Eye Findings include Negative for Intraretinal fluid, Cystoid macular edema, Subretinal fluid. Left Eye Findings include Negative for Intraretinal fluid, Cystoid macular edema, Subretinal fluid. Interval Change Right Eye Better. Left Eye Stable.[id number] NoteDate of Procedure 08/24/2024 [place] Protocol Safety Checklist Sign In: A moment [...] for, Post-procedure follow up management communicated. No specimens.[facility]10-10-2024 NoteHNO ID: [id number] Author: YEN GAMBOA MD Service: ? Author Type: Physician Type: Progress Notes Filed: 08/24/2024 12:33 Note Text: Patient of Dr. Chirinos 0. 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 Liz, both eyes done end 2022 Plan: Rec [...] and agree with all of its relevant components.[facility]10-10-20[facility] History of Present illness Narrative* Yen Gamboa MD - 08/24/2024 11:59 AM EDT Patient of Dr. Chirinos 0. 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 Liz, both eyes done end 2022 Plan: Rec [...] all ofits relevant components. documented in this encounterAdena Health System09-05-2024 NoteDate of Procedure 07/20/2024 [place] Protocol Safety Checklist Sign In: A moment [...] for, Post-procedure follow up management communicated. No specimens.[facility]09-05-2024 Instructions* Patient Instructions* Sergo Chirinos MD, PhD [...] than dabbing lightly with a tissue An nhjf-lfx-fnsgpzk pain reliever (i.e. Tylenol) can be used [...] If it is after hours please call [phone] which will give instructions on how to reach the eye doctor supervisory air intercept controller documented in this encounterAdena Health System09-05-2024 NoteHNO ID: [id number] Author: SERGO HCIRINOS MD, PhD Service: ? 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 Operculated retinal tear of left eye -on SELF CONTAINED [employer]IOR [employer] TE[employer]ER with some tethering at edge of hole [...] intraocular lens (PCIOL) both eyes -with Dr. Liz, both eyes done end 2022 Plan: Rec [...] all of its relevant components. Sergo Chirinos [facility]09-05-2024 History of Present illness Narrative* Sergo Chirinos MD, PhD - 07/20/2024 2:43 PM EDT Referred back by Dr. Reilly for cystoid macular edema 0. 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 Operculated retinal tear of left eye -on SELF CONTAINED [employer]IOR [employer] TE[employer]ER with some tethering at edge of hole [...] intraocular lens (PCIOL) both eyes -with Dr. Liz, both eyes done end 2022 Plan: Rec [...] components. Sergo Chirinos MD documented in this encounterAdena Health System09-05-2024 Instructions* Patient Instructions* Sarah Reilly II, OD [...] of its relevant components. documented in this encounterAdena Health System09-05-2024 NoteHNO ID: [id number] Author: SARAH REILLY II, OD Service: ? Author Type: FIRE LOSS PREVENTION ENGINEER Type: Progress Notes Filed: 07/20/2024 13:12 Note [...] and agree with all of its relevant components.[facility]09-05-2024 NoteDate of Procedure 07/20/2024. Interpretation Right Eye Abnormal foveal contour. Findings include Intraretinal fluid. Left Eye Abnormal foveal contour. Findings include Atrophy. Interval Change Right Eye Worse. Left Eye Stable. Notes Refer to retina.[id number] History of Present illness Narrative* Sarah Reilly [...] of its relevant components. documented in this encounterAdena Health System02-07-2024 Instructions* Patient Instructions* Sarah Reilly II, OD [...] Sarah Reilly II, OD documented in this encounterAdena Health System02-07-2024 History of Present illness Narrative* Sarah Reilly [...] Sarah Reilly II, OD documented in this encounterAdena Health System11-29-2023 Instructions* Patient Instructions* Sarah Reilly II, OD [...] Sarah Reilly II, OD documented in this encounterAdena Health System11-29-2023 History of Present illness Narrative* Sarah Reilly [...] Sarah Reilly II, OD documented in this encounterAdena Health System11-17-2023 History of Present illness Narrative* Dilan Liz MD - 10/01/2023 1:21 PM EST ASSESSMENT/PLAN: [...] 361.32, ICD10: H33.312 Stable/observe -s/p retinopexy (10/01/22) Dilan Liz MD I have confirmed and edited as [...] diagnosis, and treatment options. 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] Post-op Diagnosis * 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] Procedures Phacoemulsification Cataract with Insertion Intraocular Lens 67090 - MS XCAPSL CTRC RMVL INSJ IO LENS PROSTH W/O ECP Surgeons * Dilan Liz - Primary Resident/Fellow/Other Security Systems Manager: Surgeon(s) and Role: Procedure Summary Anesthesia: Monitor Anesthesia Care ASA: III Anesthesia Staff: Anesthesiologist: Girish Najera DO Estimated Blood Loss: None Intra-op Medications: Medication Name Total Dose lactated Ringer's infusion Cannot be calculated midazolam (Versed) injection 1 mg 1 mg Anesthesia Record Intraprocedure I/O Totals Intake lactated Ringer's infusion 300.00 mL Total Intake 300 mL Specimen: No specimens collected Staff: [employer] Mechanic: Sena Oliveros RN Scrub Person: Princess Bullard Drains and/or Catheters: * None in log * Implants: Implants Type Name Action Serial No. Lens LENS, INTRAOCULAR, SN60WF 20.5 KANDACE - [id number] - [id number] Implanted [id number] Findings: Combined Form Age Related Cataract Right [...] stable Attending Attestation: I performed the procedure. Dilan Liz * Preprocedure Instructions - Sakina Abreu RN - 09/27/2023 12:50 PM EST No outpatient medications have been marked as taking for the 09/30/23 encounter (Hospital Encounter). 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] Post-op Diagnosis * 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] Procedures Phacoemulsification Cataract with Insertion Intraocular Lens 63928 - MS XCAPSL CTRC RMVL INSJ IO LENS PROSTH W/O ECP Surgeons * Dilan Liz - Primary Resident/Fellow/Other Security Systems Manager: Surgeon(s) and Role: Procedure Summary Anesthesia: Monitor Anesthesia Care ASA: III Anesthesia Staff: Anesthesiologist: Girish Najera DO Estimated Blood Loss: None Intra-op Medications: Medication Name Total Dose lactated Ringer's infusion Cannot be calculated midazolam (Versed) injection 1 mg 1 mg Anesthesia Record Intraprocedure I/O Totals Intake lactated Ringer's infusion 300.00 mL Total Intake 300 mL Specimen: No specimens collected Staff: [employer] Mechanic: Sena Oliveros RN Scrub Person: Princess Bullard Drains and/or Catheters: * None in log * Implants: Implants Type Name Action Serial No. Lens LENS, INTRAOCULAR, SN60WF 20.5 KANDACE - [id number] - [id number] Implanted [id number] Findings: Combined Form Age Related Cataract Right [...] stable Attending Attestation: I performed the procedure. Dilan Liz [facility] Work Phone: 1(133) 945-862411-16-2023 Attending History and physical note* Dilan Liz MD - 09/30/2023 8:34 AM EST H&P reviewed. The patient was examined and there are no changes to the H&P. Source Note - Dilan Liz MD - 09/30/2023 8:34 AM EST Images from the original note were not included. H&P Notes - documented in this encounter Dilan Liz MD - 09/27/2023 3:45 PM EST HISTORY [...] dialysis. No history of symptoms or problems. DISTRICT COURT ADMINISTRATOR: Negative for abnormal vaginal bleeding, abnormal vaginal [...] known pertinent medical condition which may affect imelda- operative course Clinical Risk Factors for Possible [...] instructions and voices comprehension and compliance. SIGNATURE: Dilan Liz MD PATIENT NAME: Misael Medina DATE: September 27, 2023 TIME: 3:45 PM PAGER/CONTACT #: Source Comments - [facility] In the event this information is protected [...] 3:00 PM EST Office Visit [facility] [address] [place] [address] Dilan Liz MD [address] [place] [address] Combined form of age-related cataract, right eye [...] number is lower risk 7 Data from: https://www.neighborhoodatlas.medicine.[facility]/. Last address used for calculation [address] [...] Progress Notes - documented in this encounter Dilan Liz MD - 09/27/2023 3:38 PM EST ASSESSMENT/PLAN: [...] E78.00 Continue care with primary care physician Dilan Liz MD I have confirmed and edited as [...] 1:15 PM EST Office [place] [address] [place] [address] 1 DAY PO 2ND RE Plan of Treatment - Scheduled Procedures Scheduled Procedures Name Priority Associated Diagnoses Date/Time SURGERY AT [facility] Combined form of age-related cataract, right [...] OU (BOTH EYES) (09/27/2023 3:51 PM EST) Dilan Liz MD OPHTHALMOLOGY Associated Images 09/27/2023 VISUAL FIELD [...] 4 Round None Eye Exam - Visual Ye Visual Ye Right eye Left eye Full Restrictions Total [...] - Wearing Rx Wearing Rx Sphere Cylinder [place] Add Right eye -0.25 +1.25 070 +2.75 Left eye Eye Exam Type: PAL Eye Exam - Manifest Refraction (Auto) Manifest Refraction (Auto) Sphere Cylinder [place] Right eye -1.00 +1.00 065 Left eye -1.00 +0.50 080 Care Teams - documented as of this encounter Care Teams Parimutuel Ticket Seller Relationship Specialty Start Date End Date Girish Simon MD PCP - General Family Medicine 12/11/11 Yasmeen López MD Primary Staff Physician Cardiology 01/31/19 Patient Demographics Patient Demographics Patient Address Communication Language Race / Ethnicity Marital Status [address] (Home) [place] [address] Former (2011 - 2016): [address] (Home) [place] [address] [email or web address] [place]ian (Preferred) White / Not or [facility] Work Phone: 1(914) 696-928311-16-2023 History and physical note* Dilan Liz MD - 09/30/2023 8:34 AM EST Images from the original note were not included. H&P Notes - documented in this encounter Dilan Liz MD - 09/27/2023 3:45 PM EST HISTORY [...] dialysis. No history of symptoms or problems. DISTRICT COURT ADMINISTRATOR: Negative for abnormal vaginal bleeding, abnormal vaginal [...] known pertinent medical condition which may affect imelda- operative course Clinical Risk Factors for Possible [...] instructions and voices comprehension and compliance. SIGNATURE: Dilan Liz MD PATIENT NAME: Misael Medina DATE: September 27, 2023 TIME: 3:45 PM PAGER/CONTACT #: Source Comments - [facility] In the event this information is protected [...] PM EST Office Visit [facility] Ophthalmology [address] [id number] Dilan Liz MD [address] [place] [address] Combined form of age-related cataract, right eye [...] number is lower risk 7 Data from: https://www.neighborhoodatlas.[facility]/. Last address used for calculation [address] [...] Progress Notes - documented in this encounter Dilan Liz MD - 09/27/2023 3:38 PM EST ASSESSMENT/PLAN: [...] E78.00 Continue care with primary care physician Dilan Liz MD I have confirmed and edited as [...] PM EST Office Visit [facility] Ophthalmology [address] [id number] Dialn Liz MD [address] [place] [address] 1 DAY PO 2ND RE Plan of Treatment - Scheduled Procedures Scheduled Procedures Name Priority Associated Diagnoses Date/Time SURGERY AT [facility] Combined form of age-related cataract, right [...] OU (BOTH EYES) (09/27/2023 3:51 PM EST) Dilan Liz MD OPHTHALMOLOGY Associated Images 09/27/2023 VISUAL FIELD [...] 4 Round None Eye Exam - Visual Ye Visual Ye Right eye Left eye Full Restrictions Total [...] - Wearing Rx Wearing Rx Sphere Cylinder Blackwater Add Right eye -0.25 +1.25 070 +2.75 Left eye Eye Exam Type: PAL Eye Exam - Manifest Refraction (Auto) Manifest Refraction (Auto) Sphere Cylinder Blackwater Right eye -1.00 +1.00 065 Left eye -1.00 +0.50 080 Care Teams - documented as of this encounter Care Teams Parimutuel Ticket Seller Relationship Specialty Start Date End Date Girish Simon MD PCP - General Family Medicine 12/11/11 Yasmeen López MD Primary Staff Physician Cardiology 01/31/19 Patient Demographics Patient Demographics Patient Address Communication Language Race / Ethnicity Marital Status [address] (Home) [place] [address] Former (2011 - 2016): [address]) [place] [address] [email or web address] [place]ian (Preferred) White / Not or [facility] Work Phone: 1(137) 765-239011-16-2023 History and physical note* Dilan Liz MD - 09/30/2023 8:34 AM EST H&P reviewed. The patient was examined and there are no changes to the H&P. Source Note - Dilan Liz MD - 09/30/2023 8:34 AM EST Images from the original note were not included. H&P Notes - documented in this encounter Dilan Liz MD - 09/27/2023 3:45 PM EST HISTORY [...] Edema, Without Long-Term Current Use of Insulin ([facility]) Central Retinal Artery Occlusion, Left Eye Essential Hypertension Stroke ([facility]) Central Retinal Vein Occlusion With [...] MEDICAL HISTORY Diagnosis Date Arthritis Diabetes mellitus ([facility]) Elevated cholesterol Hx of cancer of endometrium [...] dialysis. No history of symptoms or problems. DISTRICT COURT ADMINISTRATOR: Negative for abnormal vaginal bleeding, abnormal vaginal [...] known pertinent medical condition which may affect imelda- operative course Clinical Risk Factors for Possible [...] instructions and voices comprehension and compliance. 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 Last address used for calculation [address] Social History Sex and Gender Information Value [...] Progress Notes - documented in this encounter Dilan Liz MD - 09/27/2023 3:38 PM EST ASSESSMENT/PLAN: [...] E78.00 Continue care with primary care physician Dilan Liz MD I have confirmed and edited as [...] PM EST Office Visit [facility] Ophthalmology [address] [place] [address] Dilan Liz MD [address] [place] [address] 1 DAY PO 2ND RE Plan of Treatment - Scheduled Procedures Scheduled Procedures Name Priority Associated Diagnoses Date/Time SURGERY AT [facility] Combined form of age-related cataract, right [...] OU (BOTH EYES) (09/27/2023 3:51 PM EST) Dilan Liz MD OPHTHALMOLOGY Associated Images 09/27/2023 VISUAL FIELD [...] 4 Round None Eye Exam - Visual Ye Visual Ye Right eye Left eye Full Restrictions Total [...] - Wearing Rx Wearing Rx Sphere Cylinder Black[place] Add Right eye -0.25 +1.25 070 +2.75 Left eye Eye Exam Type: PAL Eye Exam - Manifest Refraction (Auto) Manifest Refraction (Auto) Sphere Cylinder Blackwater Right eye -1.00 +1.00 065 Left eye -1.00 +0.50 080 Care Teams - documented as of this encounter Care Teams Parimutuel Ticket Seller Relationship Specialty Start Date End Date Girish Simon MD PCP - General Family Medicine 12/11/11 Yasmeen López MD Primary Staff Physician Cardiology 01/31/19 Patient Demographics Patient Demographics Patient Address Communication Language Race / Ethnicity Marital Status [address] (Home) [place] [address] Former (2011 - 2016): [address]Home) [place] [address] [email or web address] [place]ian (Preferred) White / Not or * Dilan Liz MD - 09/30/2023 8:34 AM EST Images from the original note were not included. H&P Notes - documented in this encounter Dilan Liz MD - 09/27/2023 3:45 PM EST HISTORY [...] dialysis. No history of symptoms or problems. DISTRICT COURT ADMINISTRATOR: Negative for abnormal vaginal bleeding, abnormal vaginal [...] known pertinent medical condition which may affect imelda- operative course Clinical Risk Factors for Possible [...] instructions and voices comprehension and compliance. 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 Last address used for calculation [address] [...] Progress Notes - documented in this encounter Dilan Liz MD - 09/27/2023 3:38 PM EST ASSESSMENT/PLAN: [...] Eye Distance SC 20/200 Visual Function: Misael Chinchilla Carol states that the decline in vision from [...] E78.00 Continue care with primary care physician Dilan Liz MD I have confirmed and edited as [...] 1:15 PM EST [place] [address] [place] [address] 1 DAY PO 2ND RE Plan of Treatment - Scheduled Procedures Scheduled Procedures Name Priority Associated Diagnoses Date/Time SURGERY AT [facility] Combined form of age-related cataract, right [...] OU (BOTH EYES) (09/27/2023 3:51 PM EST) Dilan Liz MD OPHTHALMOLOGY Associated Images 09/27/2023 VISUAL FIELD [...] 4 Round None Eye Exam - Visual Ye Visual Ye Right eye Left eye Full Restrictions Total [...] - Wearing Rx Wearing Rx Sphere Cylinder Blackwater Add Right eye -0.25 +1.25 070 +2.75 Left eye Eye Exam Type: PAL Eye Exam - Manifest Refraction (Auto) Manifest Refraction (Auto) Sphere Cylinder Blackwater Right eye -1.00 +1.00 065 Left eye -1.00 +0.50 080 Care Teams - documented as of this encounter Care Teams Parimutuel Ticket Seller Relationship Specialty Start Date End Date Girish Simon MD PCP - General Family Medicine 12/11/11 Yasmeen López MD Primary Staff Physician Cardiology 01/31/19 Patient Demographics Patient Demographics Patient Address Communication Language Race / Ethnicity Marital Status [address] (Home) [place] [address] Former (2011 - 2016): [address] (Home) [place] [address] [email or web address] (Preferred) White / Not or documented in this [facility] Work Phone: 1(832) 600-676811-13-2023 History and physical note* Dilan Liz MD - 09/27/2023 3:45 PM EST HISTORY [...] dialysis. No history of symptoms or problems. DISTRICT COURT ADMINISTRATOR: Negative for abnormal vaginal bleeding, abnormal vaginal [...] known pertinent medical condition which may affect imelda- operative course Clinical Risk Factors for Possible [...] instructions and voices comprehension and compliance. SIGNATURE: Dilan Liz MD PATIENT NAME: Misael Medina DATE: September 27, 2023 TIME: 3:45 PM PAGER/CONTACT #: documented in this encounterAdena [facility] System11-13-2023 History of Present illness Narrative* Dilan Liz MD - 09/27/2023 3:38 PM EST ASSESSMENT/PLAN: [...] E78.00 Continue care with primary care physician Dilan Liz MD I have confirmed and edited as [...] diagnosis, and treatment options. documented in this encounterAdena Health System11-13-2023 Note* Preprocedure Instructions - Sakina Abreu RN - 09/27/2023 12:50 PM EST No outpatient medications have been marked as taking for the 09/30/23 encounter (Hospital Encounter). 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 I have discussed the case and the management of this patient's care with the Resident/Fellow, if applicable. I also have reviewed and agree with the assessment and plan as stated above and agree withall of its relevant components. Sarah Reilly II, OD documented in this encounterAdena Health System10-13-2023 Instructions* Patient Instructions* Dilan Liz MD - 08/27/2023 9:05 AM EDT Plan Cataract Surgery with Monofocal Intraocular lens Implant Right Eye on 09/30/2023 at [facility]. Current Ophthalmic Meds fluorometholone (FML [...] any questions please contact our office at [phone]. After office hours or on the weekend, please call Dr. Liz on his cell phone at [phone]. documented in this encounterAdena Health System10-13-2023 History of Present illness Narrative* Dilan Liz MD - 08/27/2023 8:57 AM EDT ASSESSMENT/PLAN: 1. Combined forms of age-related cataract of right eye - ICD9: 366.19, ICD10: H25.811 (primary diagnosis) Plan Cataract Surgery with Monofocal Intraocular lens Implant Right Eye on 09/30/2023 at [facility]. Current Ophthalmic Meds fluorometholone (FML [...] daily. See Dr. Reilly for post-operative care. Dilan Liz MD I have confirmed and edited as necessary the relevant ophthalmic history, review of systems, surgical history, and ophthalmological examination findings as obtained by the ophthalmic technical staff.I have seen and examined Misael D Carol. I have discussed the examination findings, diagnosis, and treatment options with Misael Villavicenciojaqueline and/or her family. I have also reviewed and agree withthe assessment and plan as stated above and agree with all its relevant components. I gave the patient the opportunity to ask questions about the findings, diagnosis, and treatment options. documented in this encounterAdena Health System10-12-2023 Note* Op Note - Dilan Liz MD - 08/26/2023 12:35 PM EDT CATARACT EXTRACTION W/IOL IMPLANT L EYE (L) Operative Note Date: 08/26/2023 OR Location: [facility] OR Name: Ed Medina, : 1950, Age: 73 y.o., , Sex: female Diagnosis Pre-op Diagnosis * Combined 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 [H25.812] Post-op Diagnosis * Combined 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 [H25.812] Procedures * CATARACT EXTRACTION W/IOL IMPLANT L EYE Surgeons * Dilan Liz - Primary Resident/Fellow/Other Security Systems Manager: No surgical staff documented. Procedure Summary Anesthesia: [...] Totals None Specimen: No specimens collected Staff: [employer] Mechanic: Patrizia Hobbs RN Scrub Person: Armen Nolasco RN Implants: Implants Type Name Action Serial No. Lens LENS, INTRAOCULAR, SN60WF 21.0 - [id number] - [id number] Implanted [id number] Findings: Combined Form Age Related Cataract Left [...] stable Attending Attestation: I performed the procedure. Dilan Liz T [facility] Work Phone: [phone]) 469-570510-12-2023 Miscellaneous Notes* Op Note - Dilan Liz MD - 08/26/2023 12:35 PM EDT CATARACT EXTRACTION W/IOL IMPLANT L EYE (L) Operative Note Date: 08/26/2023 OR Location: [facility] OR Name: Ed Medina, : 1950, Age: 73 y.o., , Sex: female Diagnosis Pre-op Diagnosis * Combined 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 [H25.812] Post-op Diagnosis * Combined 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 [H25.812] Procedures * CATARACT EXTRACTION W/IOL IMPLANT L EYE Surgeons * Dilan Liz - Primary Resident/Fellow/Other Security Systems Manager: No surgical staff documented. Procedure Summary Anesthesia: [...] Totals None Specimen: No specimens collected Staff: [employer] Mechanic: Patrizia Hobbs RN Scrub Person: Armen Nolasco RN Implants: Implants Type Name Action Serial No. Lens LENS, INTRAOCULAR, SN60WF 21.0 - [id number] - [id number] Implanted [id number] Findings: Combined Form Age Related Cataract Left [...] stable Attending Attestation: I performed the procedure. Dilan Liz * Significant Event - Janene Walton RN - 08/26/2023 11:20 AM EDT Pt feeling more relaxed now documented in [facility] encounterSum[facility] Work Phone: [phone] 668-180810-12-2023 Hospital Discharge instructions* Discharge Instructions* Dilan Liz MD - 08/26/2023 11:29 AM EDT [address].. PDI to pt. And JAMAAL. Follow printed discharge instructions documented in this encounterSum[facility] Work Phone: [phone]) 651-103110-12-2023 History and physical note* Dilan Liz MD - 08/26/2023 11:21 AM EDT Reason for Visit Reason for Visit - Reason Comments Blurred Vision Both Eyes Difficulty Reading Both Eyes Glare Halos Both Eyes Encounter Details Encounter Details Date Type Department Care Team Description 08/18/2023 10:45 AM EDT Office [place] [address] [place] [address] Combined forms of age-related cataract of left [...] lower risk 7 Data from: https://www.neighborhoodatlas.medicine.[facility] Last address used for calculation [address] [...] - documented in this encounter Patient Instructions Dilan Liz MD - 08/18/2023 11:04 AM EDT Continue: [...] any questions please contact our office at [phone]. After office hours or on the weekend, please call Dr. Liz on his cell phone at [phone]. Ordered Prescriptions - documented in this encounterReconcile with Patient's Chart Ordered Prescriptions Prescription Sig Dispensed Refills Start Date End Date fluorometholone (FML LIQUID FILM) 0.1 % ophthalmic suspension Use 1 Drop in both eyes three times aday. 5 mL 1 08/18/2023 08/25/2023 Progress Notes - documented in this encounter Dilan Liz MD - 08/18/2023 11:12 AM EDT ASSESSMENT/PLAN: [...] surgery with lens implantation were discussed with Misaellenny Medina in detail. she appeared to understand [...] left eye on August 26, 2023 at [facility]. Patient wishes to have cataract surgery [...] findings, diagnosis, and treatment options with Misael Renée Medina and/or her family. I have also reviewed and agree withthe assessment and plan as stated above and agree with all its relevant components. I gave the patient the opportunity to ask questions about the findings, diagnosis, and treatment options. Dilan Liz MD Plan of Treatment - documented as of this encounter Plan of Treatment - Upcoming Encounters Upcoming Encounters Date Type Department Care Team Description 08/27/2023 8:45 AM EDT Office Visit [facility] Ophthalmology [address] [place] [address] Dilan Liz MD [address] [place] [address] 09/08/2023 1:30 PM EDT Office Visit [facility] Optometry [address] [place] [address] Sarah Reilly II, OD [address] [place] [address] Plan of Treatment - Scheduled Procedures Scheduled Procedures Name Priority Associated Diagnoses Date/Time SURGERY AT [facility] Combined form of age-related cataract, left [...] 2 Round None Eye Exam - Visual Ye (Counting fingers) Visual Ye (Counting fingers) Right eye Left eye Full [...] - Wearing Rx Wearing Rx Sphere Cylinder Blackwater Add Right eye -0.25 +1.25 070 +2.75 Left eye -0.25 +1.25 090 +2.75 Eye Exam Type: PAL Care Teams - documented as of this encounter Care Teams Parimutuel Ticket Seller Relationship Specialty Start Date End Date Girish Simon MD PCP - General Family Medicine 12/11/11 Yasmeen López MD Primary Staff Physician [facility] Work Phone: [phone]) 778-235010-12-2023 History and physical note* Dilan Liz MD - 08/26/2023 11:21 AM EDT Reason for Visit Reason for Visit - Reason Comments Blurred Vision Both Eyes Difficulty Reading Both Eyes Glare Halos Both Eyes Encounter Details Encounter Details Date Type Department Care Team Description 08/18/2023 10:45 AM EDT Office Visit [facility] Ophthalmology [address] [place] [address] Dilan Liz MD [address] [place] [address] Combined forms of age-related cataract of left [...] number is lower risk 7 Data from: https://www.neighborhoodatlas.medicine.[facility].edu/. Last address used for calculation [address] Social History Sex and Gender [...] - documented in this encounter Patient Instructions Dilan Liz MD - 08/18/2023 11:04 AM EDT Continue: [...] any questions please contact our office at [phone]. After office hours or on the weekend, please call Dr. Liz on his cell phone at [phone]. Ordered Prescriptions - documented in this encounterReconcile with Patient's Chart Ordered Prescriptions Prescription Sig Dispensed Refills Start Date End Date fluorometholone (FML LIQUID FILM) 0.1 % ophthalmic suspension Use 1 Drop in both eyes three times aday. 5 mL 1 08/18/2023 08/25/2023 Progress Notes - documented in this encounter Dilan Liz MD - 08/18/2023 11:12 AM EDT ASSESSMENT/PLAN: [...] left eye on August 26, 2023 at [facility]. Patient wishes to have cataract surgery [...] about the findings, diagnosis, and treatment options. Dilan Liz MD Plan of Treatment - documented as of this encounter Plan of Treatment - Upcoming Encounters Upcoming Encounters Date Type Department Care Team Description 08/27/2023 8:45 AM EDT Office Visit [facility] Ophthalmology [address] [place] [address] [place] [address] 09/08/2023 1:30 PM EDT Office Visit [facility] Optometry [address] [place] [address] Sarah Reilly II, OD [address] [place] [address] Plan of Treatment - Scheduled Procedures Scheduled Procedures Name Priority Associated Diagnoses Date/Time SURGERY AT [facility] Combined form of age-related cataract, left [...] 2 Round None Eye Exam - Visual Ye (Counting fingers) Visual Ye (Counting fingers) Right eye Left eye Full [...] - Wearing Rx Wearing Rx Sphere Cylinder Blackwater Add Right eye -0.25 +1.25 070 +2.75 Left eye -0.25 +1.25 090 +2.75 Eye Exam Type: PAL Care Teams - documented as of this encounter Care Teams Parimutuel Ticket Seller Relationship Specialty Start Date End Date Girish Simon MD PCP - General Family Medicine 12/11/11 Yasmeen López MD Primary Staff Physician documented in this encounterSum[facility] Work Phone: [phone]) 233-819410-12-2023 Note* Significant Event - Janene Walton RN - 08/26/2023 11:20 AM EDT Pt feeling more relaxed now [facility] Work Phone: [phone]) 959-544509-20-2023 Instructions* Patient Instructions* Dilan Liz MD - 08/04/2023 3:29 PM EDT Begin: [...] Intraocular lens left eye on 08-26-2023 at [facility]. Return for basic consents. If you have any questions please contact our office at [phone]. After office hours or on the weekend, please call Dr. Liz on his cell phone at [phone]. documented in this encounterAdena Health System09-20-2023 History of Present illness Narrative* Dilan Liz MD - 08/04/2023 3:06 PM EDT ASSESSMENT/PLAN: [...] left eye on August 26, 2023 at [facility]. Patient wishes to have cataract surgery [...] about the findings, diagnosis, and treatment options. Dilan Liz MD documented in this encounterAdena Health System06-21-2023 Miscellaneous Notes* Addendum Note - Sarah Reilly II, OD - 05/05/2023 2:14 PM EDTAddended by: SARAH REILLY II on: 05/05/2023 02:14 PM Modules accepted: Orders documented in this encounterAdena Health System06-21-2023 Instructions* Patient Instructions* Sarah Reilly II, OD [...] Sarah Reilly II, OD documented in this encounterAdena Health System06-21-2023 History of Present illness Narrative* Sarah Reilly [...] Sarah Reilly II, OD documented in this encounterAdena Health System04-03-2023 History of Present illness NarrativePt reassessed this [...] reciprocal pattern and min-no evidenceof instability. [facility] Work Phone: [phone]) 650-972202-08-2023 Instructions* Patient Instructions* Sarah Reilly II, OD [...] Sarah Reilly II, OD documented in this encounterAdena Health System02-08-2023 History of Present illness Narrative* Sarah Reilly [...] Sarah Reilly II, OD documented in this encounterAdena Health System01-19-2023 History of Present illness Narrative* Sergo Chirinos MD, PhD - 12/03/2022 4:30 PM EST Assessment and Plan Referred by Dr. 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 Liz when ready Plan: Resume appointments with Dr. [...] components. Sergo Chirinos MD documented in this encounterAdena Health System11-17-2022 Instructions* Patient Instructions* Sergo Chirinos MD, PhD [...] For Questions or an Appointment, please call: [phone] Visit us online at [email or web address]. documented in this encounterAdena Health System11-17-2022 History of Present illness Narrative* Sergo Chirinos MD, PhD - 10/01/2022 2:00 PM EST Assessment and Plan Referred by Dr. 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 Liz when ready Plan: Retinopexy left eye today [...] components. Sergo Chirinos MD documented in this encounterAdena Health System10-25-2022 Instructions* Patient Instructions* Sarah Reilly II, OD [...] Sarah Reilly II, OD documented in this encounterAdena Health System10-25-2022 History of Present illness Narrative* Sarah Reilly [...] Sarah Reilly II, OD documented in this encounterAdena Health System06-21-2022 Instructions* Patient Instructions* Sarah Reilly II, OD [...] Sarah Reilly II, OD documented in this encounterAdena Health System06-21-2022 History of Present illness Narrative* Sarah Reilly [...] Sarah Reilly II, OD documented in this encounterAdena Health System09-28-2021 History of Present illness Narrative* 20 yr [...] of motion/joint mobility, strength and transfers. [facility] Work Phone: [phone] History of Past illness Narrative* Problem Noted Date Diagnosed Date Resolved Date Combined forms of age-relate d cataract of both eyes 01/02/2015 09/27/2023 documented as of this encounter (statuses as of 09/28/2023) [facility] History of Past illness Narrative* Problem Noted Date Diagnosed Date Resolved Date Combined forms of age-relate d cataract of both eyes 01/02/2015 09/27/2023 documented as of this encounter (statuses as of 10/01/2023) [facility] History of Past illness Narrative* Problem Noted Date Diagnosed Date Resolved Date Combined forms of age-relate d cataract of both eyes 01/02/2015 09/27/2023 documented as of this encounter (statuses as of 10/14/2023) [facility] History of Past illness Narrative* Problem Noted Date Diagnosed Date Resolved Date Combined forms of age-relate d cataract of both eyes 01/02/2015 09/27/2023 documented as of this encounter (statuses as of 12/22/2023) [facility] Omkar Gonzales [facility] Note Date/Time March 23, 2025 1:24pm [facility] Medical Records Department [address] [place] [address] Counseling Note - Pharmacy 03/23/25 1133 MR#: [id number] Acct: [id number] Name: MISAEL MEDINA Rep #:[id number] : 1950 74 From: Omkar Gonzales PCP: Dr. 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 [facility] Diagnosis Type 2 diabetes mellitus without [...] Regular astigmatism Presbyopia [facility] Diagnosis Central retinal artery occlusion, left eye- Primary Central artery occlusion of retina Operculated retinal tear of left eye 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 [facility] Diagnosis Onset Date Resolution Status Osteoarthritis of right hip noneactive Hip pain noneactive Osteoarthritis of right hip acute [facility] Work Phone: Evaluation note* Diagnosis Central retinal artery occlusion, left eye Central artery occlusion of retina [facility] Diagnosis Regular astigmatism of both eyes- Primary Regular astigmatism Presbyopia Operculated retinal tear of left eye 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 Central retinal artery occlusion, left eye Central artery occlusion of retina 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 of senile cataract of both eyes Type 2 diabetes mellitus without retinopathy ([facility]) Type II or unspecified type diabetes mellitus without mention of complication, not stated as uncontrolled [facility] Diagnosis Combined 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- Primary Other and combined forms of senile cataract Combined forms of age-related cataract of right eye Other and combined forms of senile cataract 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 without macular edema, without long-term current use of insulin ([facility]) Central retinal artery occlusion, left eye Central artery occlusion of retina Operculated retinal tear of left eye 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 Essential hypertension Unspecified essential hypertension [facility] Diagnosis Combined 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- Primary Combined 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 documented in this encounter [facility] Work Phone: Evaluation note* Diagnosis Combined forms of age-related cataract of right eye- Primary Other and combined forms of senile cataract Status post cataract extraction and insertion of intraocular lens of left eye [facility]* Diagnosis Status post cataract extraction and insertion of intraocular lens of left eye- Primary Combined form of age-related cataract, right eye [facility]* Diagnosis Combined form of age-related cataract, right eye- Primary 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 without macular edema, without long-term current use of insulin ([facility]) Status post cataract extraction and insertion of intraocular lens of left eye Central retinal artery occlusion, left eye Central artery occlusion of retina Operculated retinal tear of left eye 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 Essential hypertension Unspecified essential hypertension Hypercholesterolemia Pure hypercholesterolemia Combined form of age-related cataract, right eye [facility]* Diagnosis Combined forms of age-related cataract of right eye- Primary HTN (hypertension) Unspecified essential hypertension Class 3 severe obesity with body mass index (BMI) of 45.0 to 49.9 in adult ([facility]) Diabetes mellitus, type 2 ([facility]) Type II or unspecified type diabetes mellitus without mention of complication, not stated as uncontrolled documented in this encounter [facility] Work Phone: Evaluation note* Diagnosis Status post cataract extraction and insertion of intraocular lens of left eye- Primary Status post cataract extraction and insertion of intraocular lens of right eye 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 without macular edema, without long-term current use of insulin ([facility]) Central retinal artery occlusion, left eye Central artery occlusion of retina Operculated retinal tear of left eye 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 [facility]* Diagnosis Status post cataract extraction and insertion of intraocular lens of right eye- Primary Status post cataract extraction and insertion of intraocular lens of left eye documented [facility]* Diagnosis Status post cataract extraction and insertion of intraocular lens of right eye- Primary Status post cataract extraction and insertion of intraocular lens of left eye documented [facility] this encounter [facility] noteNo assessment information availableWParkview [facility] Work Phone: Evaluation note* Diagnosis 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, without long-term current use of insulin ([facility])- Primary documented [facility] this encounter [facility]* Diagnosis 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, without long-term current use of insulin ([facility])- Primary documented [facility] this encounter [facility]* Diagnosis 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, without long-term current use of insulin ([facility]) documented in this encounter [facility] note* Diagnosis Tributary (branch) retinal vein occlusion, [...] Regular astigmatism Presbyopia documented [facility]* Diagnosis 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 without macular edema, without long-term current use of insulin (HCC)- Primary [facility]* Diagnosis 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 without macular edema, without long-term current use of insulin (HCC) documented [facility] this encounter [facility]* Diagnosis 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 without macular edema, without long-term current use of insulin (HCC) documented [facility]* Diagnosis 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 without macular edema, without long-term current use of insulin (HCC) documented [facility]* Diagnosis Cardiogenic shock (HCC)- Primary Cardiogenic shock Cardiogenic shock (HCC) Cardiogenic shock Pain in hip 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, initial encounter (HCC) Pain in hip 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 (HCC) [facility]* Diagnosis Cardiogenic shock (HCC)- Primary Cardiogenic shock Cardiogenic shock (HCC) Cardiogenic shock Pain in hip 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, initial encounter (HCC) Pain in hip 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 (HCC) Osteomyelitis of lumbar spine (HCC)- Primary Abnormal finding on echocardiogram Abnormal electrocardiogram Nonspecific abnormal electrocardiogram (ECG) (EKG) documented in this encounter [facility] note* Diagnosis Complete small bowel obstruction (Multi)- Primary documented in this encounter [facility] Work Phone: Evaluation note* Diagnosis Cardiogenic shock (HCC)- Primary Cardiogenic shock Cardiogenic shock (HCC) Cardiogenic shock Pain in hip 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, initial encounter (HCC) Pain in hip 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 (HCC) Osteomyelitis of lumbar spine (HCC)- Primary [facility] Milton Mu[facility]oz [facility] Note Date/Time March 13, 2025 7:1 0pm [facility] Medical Records Department [address] [place] [id number] H&P Exam - Hospitalist 03/13/25 1839 MR#: [id number] Acct: [id number] Name: MISAEL MEDINA Rep #:[id number] : 1950 74 From: Milton harper MD PCP: Dr. Donal Will MD Status:ADM IN [facility] [id number] - General General Date of Admission: 03/13/25 [...] denies any nausea, or vomiting, or diarrhea. [facility] Medical History Congestive heart failure Hypothyroidism Osteoporosis [...] (Auto) 79.2 H, Lymph % (Auto) 11.5L, Grainger % (Auto) 7.8, Eos % (Auto) 0.6, [...] 159 H*, NT pro BNP II > 560[address] H 03/13/25 17:30: Troponin T Hi Sens 2 Hr 159 H*, Urine Color Yellow, Urine Clarity Cloudy, Urine pH 5.0, Ur Specific Bishop 1.025, Urine Protein 100 H, Urine Glucose [...] with central vascular prominence and at least vyazh-yw-yhjnonjr RIGHT pleural effusion. 2. RIGHT-sided airspace disease adjacent to the effusion may reflect compressiveatelectasis and/or pneumonia. Follow-up to radiographic resolution recommended. 3. Additional description as above. Reading Location: [facility] Assessment & Plan Assessment/Plan (1) [...] with colleagues Charges/Coding Visit Charges Inpatient E&M: 52032 Init Hosp L3 03/13/251909 <Electronically signed by Milton Muñoz MD> Cosigner Signature (if applicable): CC: Dr. Donal Will MD; Dr. Milton Muñoz MD~ Signed [facility] Work Phone: History of Present [...] afterward. * Updated HEP this date. [facility] Work Phone: History of Present illness Narrative* Patient arrived in W/C and was wheeled into clinic by [facility]. * Able to ambulate short distances with [...] was completed with decreased pain afterward. [facility] Work Phone: History of Present illness NarrativePatient identified by name and date of . Patient was able to progress with standing exercises this date she demonstrated quick fatigue. She required cues to slow down and maintain hold times. She presented with palpable tension in gluts that responded well to STW. [facility] Work Phone: History of Present illness Narrative* [...] all contraindications to e-stim use when questioned. [facility] Work Phone: History of Present illness Narrative* Patient has Mod antalgic gait when ambulating short distance from stepper to plinth approx 15 feet. * Guards with all transfers in clinic. * Tenderness along GT and glute during STW. * Could not progress strength this date d/t patient pain levels. [facility] Work Phone: History of Present illness NarrativePt [...] pain and functional limits. GOals not met. [facility] Work Phone: History of Present illness Narrative* [...] R hip flexors d/t observable tightness. [facility] Work Phone: History of Present illness Narrative* Patient denied walking into the clinic from waiting are d/t fatigue this date. * Patient had difficulty with standing PRE's this date d/t fatigue. * Had increased hip flexion in stance phase with trunk flexion at the step. * Tightness with hip flexors with STW. [facility] Work Phone: History of Present illness Narrative* [...] STW. * Progressed HEP with new PRE's. [facility] Work Phone: History of Present illness Narrative* [...] during STW, that was relieved by STW. [facility] Work Phone: History of Present illness Narrative* [...] STW, that was relieved by STW. [facility] Work Phone: History of Present illness Narrative* Pt reassessed this date by supervising PT with improvements noted in gait mechanics with pt able toambulate from parking lot to rehab gym with rollator this date (vs wheelchair at [facility]), improved MMT RLE as well as [...] complete today's treatment with some difficulty. [facility] Work Phone: History of Present illness Narrative* [...] trunk. * Continue to ambulate with rollator. [facility] Work Phone: History of Present illness Narrative* [...] since she continues to ambulate with rollator. [facility] Work Phone: History of Present illness Narrative* Added slant board this date to help ease tightness in back of the leg. * Improved jeimy with gait with use of rollator. * Step ups were added to facilitate improved concentric and eccentric control. * Improved ability to complete PRE's and NMRE this date with decreased fatigue and needed * . [facility] Work Phone: Hiswcgb of Present illness Narrative* Added Airex to select standing PRE's. * Progressed time with SLS with patient needing external support d/t difficulty. * Observed improved jeimy and upright posture with gait with rollator. * Needed 2 seated rest breaks throughout session. [facility] Work Phone: History of Present illness Narrative* Added Airex to staggered balance (N) * Added BOSU this date with running man and mini lunges for improved balance and safety for ADL's. * Observed patient ambulate 10 feet in clinic w/out any AD. [facility] Work Phone: History of Present illness Narrative* [...] to complete today's treatment with some difficulty. [facility] Work Phone: History of Present illness Narrative* [...] to complete today's treatment with some difficulty. [facility] Work Phone: Hiswyld of Present illness NarrativePatient identified by name and date of . Patient required cues to increase with upright posture throughout treatment from fwd flexed. Patient required several standing rest breaks due to report of increased fatigue this date. She required cues to slow down with exercises and focus on eccentriccontrol. [facility] Work Phone: History of Present [...] the direct supervision of Katiana Guzman PTA. [facility] Work Phone: History of Present [...] direct supervision of Katiana Guzman PTA. [facility] Work Phone: reason for referral (narrative)No reason for referral information availableWParkview [facility] Work Phone: Reason for visit Narrative* Initial Evaluation . R hip pain/OA. * [facility]: Carey Gonzalez [facility] Work [facility]: Reason for visit Narrative* Auth/Cert (Routine) Specialty Diagnoses / Procedures Referred By Len matson Referred To Contact Diagnoses Cardiogenic shock (HCC) cardiogenic shock Referral ID Status Reason Start Date Expiration Date Visits Re quested Visits Authorized [id number] 1 1 [facility] Summary Purpose Family History No Family History [...] FoundDocuments on File Type Date Recorded Patient Resident Care Provider Expl anation Advance Directive(s) 06/02/2018 12:38 PM Advance Directive Response Recorded Date/ Time Name of Medical Power of Holistic Specialist Jamaal [facility] November 19, 2022 8:03pm Living Will Yes November 19 8:03pm Power of Holistic Specialist Yes November 19 023 8:03pm Latest Code Status on File [...] Will Yes November 19 8:03pm Power of Holistic Specialist Yes November 19 023 8:03pm Advance Directive Response Recorded Date/ Time Living Will Yes October 18 8:42am Power of Holistic Specialist Yes October 18, 2024 8:42am Name of Medical Power of Holistic Specialist mike Yi October 18, 2024 8:42am Living Will No October 30, 024 7:27pm Power of Holistic Specialist No October 30, 2024 7:27pm Advance Directive Response Recorded Date/ Time Do you have a Healthcare Power of Holistic Specialist? No March 13, 2025 3:46pm Advance Directive Response Recorded Date/ Time Do you have a Healthcare Power of Holistic Specialist? No March 13, 2025 7:56pm Advance Directive Response Recorded Date/ Time Do you have a Healthcare Power of Holistic Specialist? Yes June 24, 2025 11:47pm Do you have a Healthcare Power of Holistic Specialist? No March 13, 2025 7:56pm Date Activated Date Inactivated Comments 07/11/2025 10:05 AM 07/20/2025 4:35 PM Date Activated Date Inactivated Comments 06/28/2025 9:43 PM 07/11/2025 10:05 AM Date Activated Date Inactivated Comments 06/28/2025 6:31 PM 06/28/2025 9:43 PM Date Activated Date Inactivated Comments 07/11/2025 10:05 AM 07/20/2025 4:35 PM Date Activated Date Inactivated Comments 06/28/2025 9:43 PM 07/11/2025 10:05 AM Date Activated Date Inactivated Comments 06/28/2025 6:31 PM 06/28/2025 9:43 PM Date Activated Date Inactivated Comments 09/30/2023 8:39 AM 09/30/2023 12:36 PM Question Answer Comments Plan of Care: Code Status Discussion Not Compl eted Decision Maker: Provider Rationale: Patient condition does not warra nt discussion Date Activated Date Inactivated Comments 08/26/2023 10:59 AM 08/26/2023 3:24 PM Question Answer Comments Plan of Care: Code Status Discussion Not Compl eted Decision Maker: Provider Rationale: Patient condition does not warra nt discussion Documents on File Type Date Recorded Patient Resident Care Provider Expl anation Power of Holistic Specialist 07/23/2025 7:36 PM Advance Directives and Livin g Will 07/23/2025 7:35 PM Date Activated Date Inactivated Comments 07/28/2025 5:48 AM 08/03/2025 1:32 PM Date Activated Date Inactivated Comments 07/11/2025 10:05 AM 07/20/2025 4:35 PM Date Activated Date Inactivated Comments 06/28/2025 9:43 PM 07/11/2025 10:05 AM Date Activated Date Inactivated Comments 06/28/2025 6:31 PM 06/28/2025 9:43 PM Medications Administered Section Active Administered Medications - up to 3 most recent administrations Medication Order MAR Action Action Date Dose Rate Site fluorescein-benoxinate 0.25-0.4 % 1 Drop (FLURESS) 1 Drop, BOTH EYES, DIRECTED, Starting on Wed05/05/22 at 1330, Until Wed05/06/22 at 0129, Administer for applanation tonometry. In the event of a Fluress shortage, administer [place]-Fluor 1 drop into both eyes as directed [...] the event of a Fluress shortage, administer [place]-Fluor 1 drop into both eyes as directed [...] the event of a Fluress shortage, administer [place]-Fluor 1 drop into both eyes as directed [...] 2:00pm NEED ORDER November 10, 2024 12:44pm [facility] 11/02 CHF December 01, 2024 1 0:15am E-ORDER December 01, 2024 1 1:21am CHF December 12, 2024 1 :46pm Reason for Visit Admit Date High cholesterol October 18, 2024 1 2:29am LV dysfunction October 18, 2024 1 2:29am Pulmonary hypertension October 18 12:29am Acute hypoxemic respiratory failure Dece [id number] 12:29am JOSUE (acute kidney injury) October 18, [...] 2024 1 0:15am Chief Complaint Admit Date [facility] 11/02 CHF December 01, 2024 1 [...] 1:0 2pm Acute kidney injury superimposed on wellness program 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 March 13, 2025 6:27pm Chief Complaint Admit Date [facility] 11/02 CHF December 01, 2024 1 [...] acute osteomyelitis, right ankle a nd foot [place] 29th, 2025 6:27pm Pulmonary hypertension March 13, 2025 6:27pm Right hallux osteomyelitis March 13, 025 6:27pm Type 2 diabetes mellitus with diabetic p olyneuropathy March 13, 2025 6:27pm Acute kidney injury superimposed on wellness program 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 March 13, 2025 [...] 6:2 7pm Acute kidney injury superimposed on wellness program 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 March 13, 2025 [...] 6:2 7pm Acute kidney injury superimposed on wellness program 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 March 13, 2025 6:27pm Acute on chronic renal failure February 6:27pm Hyperkalemia March 13, 2025 6:2 7pm 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 March 13, 2025 6:27pm Other acute osteomyelitis, right ankle a nd foot March 13, 2025 6:27pm Right hallux osteomyelitis March 13, 6:27pm Pulmonary hypertension March 13, 2025 6:27pm [...] EORDER- STOOL May 21, 2025 12:42 pm Chief Complaint Admit Date 3 M FU [...] EORDER- STOOL May 21, 2025 12:42 pm FALL, LEUKOCYTOSIS OF UNCLEAR ETIOLOGY, NEW PAF June 25, 2025 2:57am Reason for Visit Admit Date Aortic valve [...] 6:2 7pm Acute kidney injury superimposed on wellness program 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 March 13, 2025 6:27pm Acute on chronic renal failure February 6:27pm Hyperkalemia March 13, 2025 6:2 7pm 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 DATE CREATED AUTHOR AUTHOR'S ORGANIZ ATION 11/29/2018 [facility] DATE CREATED AUTHOR AUTHOR'S ORGANIZ ATION 03/14/2019 [facility] DATE CREATED AUTHOR AUTHOR'S ORGANIZ ATION 02/17/2023 [facility] DATE CREATED AUTHOR AUTHOR'S ORGANIZ ATION 08/17/2023 [facility] DATE CREATED AUTHOR AUTHOR'S ORGANIZ ATION 03/25/2025 [facility] DATE CREATED AUTHOR AUTHOR'S ORGANIZ ATION 06/04/2025 [facility] DATE CREATED AUTHOR AUTHOR'S ORGANIZ ATION 07/05/2025 [facility] DATE CREATED AUTHOR AUTHOR'S ORGANIZ ATION 08/05/2025 [facility] DATE CREATED AUTHOR AUTHOR'S ORGANIZ ATION 08/27/2025 [facility] DATE CREATED AUTHOR AUTHOR'S ORGANIZ ATION 08/29/2025 [facility] DATE CREATED AUTHOR AUTHOR'S ORGANIZ ATION 09/12/2025 [facility] DATE CREATED AUTHOR AUTHOR'S ORGANIZ ATION 09/14/2025 [facility] Source Comments (unrecognize d section and content) In the event this informatio n is protected by the Federal Confidentiality of Alcohol and Drug Abuse Patient Records regulations: The Federal rules restrict any use of the information to criminally investigate or prosecute any alcohol or drug abuse patient.[facility] System[facility] the event this information is protected by the Federal Confidentiality of Alcohol and Drug Abuse Patient Records regulations: The Federal rules restrict any use of the information to criminally investigate or prosecute any alcohol or drug abuse patient.[facility] SystemIn the event this information is protected by the Federal Confidentiality of Alcohol and Drug Abuse Patient Records regulations: The Federal rules restrict any use of the information to criminally investigate or prosecute any alcohol or drug abuse patient.[facility] SystemIn the event this information is protected by the Federal Confidentiality of Alcohol and Drug Abuse Patient Records regulations: The Federal rules restrict any use of the information to criminally investigate or prosecute any alcohol or drug abuse patient.[facility] SystemIn the event this information is protected by the Federal Confidentiality of Alcohol and Drug Abuse Patient Records regulations: The Federal rules restrict any use of the information to criminally investigate or prosecute any alcohol or drug abuse patient.[facility] SystemIn the event this information is protected by the Federal Confidentiality of Alcohol and Drug Abuse Patient Records regulations: The Federal rules restrict any use of the information to criminally investigate or prosecute any alcohol or drug abuse patient.[facility] SystemIn the event this information is protected by the Federal Confidentiality of Alcohol and Drug Abuse Patient Records regulations: The Federal rules restrict any use of the information to criminally investigate or prosecute any alcohol or drug abuse patient.[facility] SystemIn the event this information is protected by the Federal Confidentiality of Alcohol and Drug Abuse Patient Records regulations: The Federal rules restrict any use of the information to criminally investigate or prosecute any alcohol or drug abuse patient.[facility] SystemIn the event this information is protected by the Federal Confidentiality of Alcohol and Drug Abuse Patient Records regulations: The Federal rules restrict any use of the information to criminally investigate or prosecute any alcohol or drug abuse patient.[facility] SystemIn the event this information is protected by the Federal Confidentiality of Alcohol and Drug Abuse Patient Records regulations: The Federal rules restrict any use of the information to criminally investigate or prosecute any alcohol or drug abuse patient.[facility] SystemIn the event this information is protected by the Federal Confidentiality of Alcohol and Drug Abuse Patient Records regulations: The Federal rules restrict any use of the information to criminally investigate or prosecute any alcohol or drug abuse patient.[facility] SystemIn the event this information is protected by the Federal Confidentiality of Alcohol and Drug Abuse Patient Records regulations: The Federal rules restrict any use of the information to criminally investigate or prosecute any alcohol or drug abuse patient.[facility] SystemIn the event this information is protected by the Federal Confidentiality of Alcohol and Drug Abuse Patient Records regulations: The Federal rules restrict any use of the information to criminally investigate or prosecute any alcohol or drug abuse patient.[facility] SystemIn the event this information is protected by the Federal Confidentiality of Alcohol and Drug Abuse Patient Records regulations: The Federal rules restrict any use of the information to criminally investigate or prosecute any alcohol or drug abuse patient.[facility] SystemIn the event this information is protected by the Federal Confidentiality of Alcohol and Drug Abuse Patient Records regulations: The Federal rules restrict any use of the information to criminally investigate or prosecute any alcohol or drug abuse patient.[facility] SystemIn the event this information is protected by the Federal Confidentiality of Alcohol and Drug Abuse Patient Records regulations: The Federal rules restrict any use of the information to criminally investigate or prosecute any alcohol or drug abuse patient.[facility] SystemIn the event this information is protected by the Federal Confidentiality of Alcohol and Drug Abuse Patient Records regulations: The Federal rules restrict any use of the information to criminally investigate or prosecute any alcohol or drug abuse patient.[facility] SystemIn the event this information is protected by the Federal Confidentiality of Alcohol and Drug Abuse Patient Records regulations: The Federal rules restrict any use of the information to criminally investigate or prosecute any alcohol or drug abuse patient.[facility] SystemIn the event this information is protected by the Federal Confidentiality of Alcohol and Drug Abuse Patient Records regulations: The Federal rules restrict any use of the information to criminally investigate or prosecute any alcohol or drug abuse patient.[facility] SystemIn the event this information is protected by the Federal Confidentiality of Alcohol and Drug Abuse Patient Records regulations: The Federal rules restrict any use of the information to criminally investigate or prosecute any alcohol or drug abuse patient.[facility] SystemIn the event this information is protected by the Federal Confidentiality of Alcohol and Drug Abuse Patient Records regulations: The Federal rules restrict any use of the information to criminally investigate or prosecute any alcohol or drug abuse patient.[facility] SystemIn the event this information is protected by the Federal Confidentiality of Alcohol and Drug Abuse Patient Records regulations: The Federal rules restrict any use of the information to criminally investigate or prosecute any alcohol or drug abuse patient.[facility] Reason for Visit (unrecogniz ed section and content) Reason Comments Branch Retinal Vein Occlusion Follow Up Nonproliferative Diabetic Retinopathy Fo llow Up Specialty Diagnoses / Procedures Referred By Len matson Referred To Contact Ophthalmology / OPHTHALMOLOGY Diagnoses Type 2 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 [place] [address] [place] [address] Referral ID Status Reason Start Date Expiration Date Visits Re quested Visits Authorized [id number] 1 1 Reason Comments Post-op Cataract OS [...] age-related cataract of right eye [H25.811] Procedures MS XCAPSL CTRC RMVL INSJ IO LENS PROSTH W/O ECP Phacoemulsification Cataract with Insertion Intraocular Lens Dilan Liz MD [address] [facility] [place] [address] [facility] [address] [place] [phone] Referral ID Status Reason Start Date Expiration Date Visits Re quested Visits Authorized [id number] 1 1 Reason Comments Post-op Cataract OD [...] OCT- okay to overbook at 9:15 Procedures MS BEVACIZUMAB INJECTION INJECTION Sergo Chirinos MD, PhD [address] [place] [id number] Sergo Chirinos MD, PhD [address] [place] [address] Referral ID Status Reason Start Date Expiration Date V isits Requested Visits Authorized [id number] Authorized 11/16/2024 11/14/2025 99 99 Reason Comments Branch Retinal Vein Occlusion Right eye Specialty Diagnoses / Procedures Referred By Len matson Referred To Contact Ophthalmology / OPHTHALMOLOGY Diagnoses Type 2 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, right eye STI avastin OD/ OCT- okay to overbook at 9:15 Procedures MS BEVACIZUMAB INJECTION INJECTION Sergo Chirinos MD, PhD [address] [place] [address] Phone: tel: Sergo Chirinos MD, PhD [address] [place] [address] Phone: tel:[phone] fax:[phone] Reason Comments Branch Retinal Vein Occlusion Follow Up Specialty Diagnoses / Procedures Referred By Contac t Referred To Contact Ophthalmology / OPHTHALMOLOGY Diagnoses Type 2 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 Reports N/V. Pt is hemodialysis patient qMTTF, last full tx Mon. Vomiting Care Teams (unrecognized sec tion and content) Parimutuel Ticket Seller Relationship Specialty Start Date End Date Girish Simon PCP - General Family Practice 12/11/11 Yasmeen López MD Primary Staff Physician Cardiology 01/31/19 Parimutuel Ticket Seller Relationship Specialty Start Date End Date Girish Simon PCP - General Family Medicine 12/11/11 Yasmeen López MD Primary Staff Physician Cardiology 01/31/19 Parimutuel Ticket Seller Relationship Specialty Start Date End Date Girish Simon PCP - General Family Medicine 12/11/11 Yasmeen López MD Primary Staff Physician Cardiology 01/31/19 Parimutuel Ticket Seller Relationship Specialty Start Date End Date Girish Simon PCP - General Family Medicine 12/11/11 Yasmeen López MD Primary Staff Physician Cardiology 01/31/19 Parimutuel Ticket Seller Relationship Specialty Start Date End Date Girish Simon PCP - General Family Medicine 12/11/11 Yasmeen López MD Primary Staff Physician Cardiology 01/31/19 Parimutuel Ticket Seller Relationship Specialty Start Date End Date Girish Simon PCP - General Family Medicine 12/11/11 Yasmeen López MD Primary Staff Physician Cardiology 01/31/19 Parimutuel Ticket Seller Relationship Specialty Start Date End Date Girish Simon PCP - General Family Medicine 12/11/11 Yasmeen López MD Primary Staff Physician Cardiology 01/31/19 Parimutuel Ticket Seller Relationship Specialty Start Date End Date Girish Simon MD PCP - General Family Medicine 12/11/11 Yasmeen López MD Primary Staff Physician Cardiology 01/31/19 Parimutuel Ticket Seller Relationship Specialty Start Date End Date Girish Simon MD [address] [place] [address] PCP - General 10/02/19 Parimutuel Ticket Seller Relationship Specialty Start Date End Date Girish Simon MD PCP - General Family Medicine 12/11/11 Yasmeen López MD Primary Staff Physician Cardiology 01/31/19 Parimutuel Ticket Seller Relationship Specialty Start Date End Date Girish Simon MD PCP - General Family Medicine 12/11/11 Yasmeen López MD Primary Staff Physician Cardiology 01/31/19 Parimutuel Ticket Seller Relationship Specialty Start Date End Date Girish Simon MD PCP - General Family Medicine 12/11/11 Yasmeen López MD Primary Staff Physician Cardiology 01/31/19 Parimutuel Ticket Seller Relationship Specialty Start Date End Date Girish Simon MD [address] [place] [address] PCP - General 10/02/19 Parimutuel Ticket Seller Relationship Specialty Start Date End Date Girish iSmon MD PCP - General Family Medicine 12/11/11 Yasmeen López MD Primary Staff Physician Cardiology 01/31/19 Sarah Reilly II OD [address] [place] [id number] Referring Optometry 10/01/23 Parimutuel Ticket Seller Relationship Specialty Start Date End Date Donal Will MD [address] [facility] [address] [place] [address] PCP - General Internal Medicine 10/13/23 Yasmeen López MD Primary Staff Physician Cardiology 01/31/19 Sarah Reilly II OD [address] [place] [id number] Referring Optometry 10/01/23 Parimutuel Ticket Seller Relationship Specialty Start Date End Date Donal Will MD [address] [facility] [address] [place] [address] PCP - General Internal Medicine 10/13/23 Yasmeen López MD Primary Staff Physician Cardiology 01/31/19 Sarah Reilly II OD [address] [place] [phone] Referring Optometry 10/01/23 Team Status: Active Member Role Status Dates Dr. Girish Simon MD Family Provider Active Donal Will MD Primary Care Provider Active Team Status: Inactive Member Role Status Dates Donal Will MD Primary Care Provider, Attending Prov ider Active Parimutuel Ticket Seller Relationship Specialty Start Date End Date Donal Will MD [address] [facility] [address] [place], [place] [address] PCP - General Internal Medicine 10/13/23 Yasmeen López MD Primary Staff Physician Cardiology 01/31/19 Sarah Reilly II, OD [address] [place] [address] Referring Optometry 10/01/23 Parimutuel Ticket Seller Relationship Specialty Start Date End Date Donal Will MD [address] [facility] [address] [place] [address] PCP - General Internal Medicine 10/13/23 Yasmeen López MD Primary Staff Physician Cardiology 01/31/19 Sarah Reilly II, OD [address] [place] [address] Referring Optometry 10/01/23 Parimutuel Ticket Seller Relationship Specialty Start Date End Date Donal Will MD [address] [facility] [address] [place] [address] PCP - General Internal Medicine 10/13/23 Yasmeen López MD Primary Staff Physician Cardiology 01/31/19 Sarah Reilly II, OD [address] [place] [address] Referring Optometry 10/01/23 Parimutuel Ticket Seller Relationship Specialty Start Date End Date Donal Will MD [address] [facility] [address] [place] [address] PCP - General Internal Medicine 10/13/23 Yasmeen López MD Primary Staff Physician Cardiology 01/31/19 Sarah Reilly II, OD [address] [place] [address] Referring Optometry 10/01/23 Parimutuel Ticket Seller Relationship Specialty Start Date End Date Donal Will MD [address] [facility] [address] [place] [address] PCP - General Internal Medicine 10/13/23 Yasmeen López MD Primary Staff Physician Cardiology 01/31/19 Sarah Reilly II, OD [address] [place] [address] Referring Optometry 10/01/23 Team Status: Inactive Member Role Status Dates Donal Will MD Primary Care Provider Active St art: October 13, 2024 End: October 13, 2024 Dr. Kenan White MD Attending Provider Active Start: October 13, 2024 End: October 13, 2024 Dr. Kenan White MD Referring Provider Active Start: October 13, 2024 End: October 13, 2024 Team Status: Inactive Member Role Status Dates Donal Will MD Primary Care Provider Active St art: October 18, 2024 End: October 21, 2024 Dr. Princess Cui DO Emergency Provider Active Start: October [...] 2024 End: October 21, 2024 Man Lainez FREIGHT BOOKER, FREIGHT BOOKER-C Other Provider Active Start : October 18, [...] Status: Active Member Role Status Dates Donal Will MD Primary Care Provider Active St art: October 18, 2024 Dr. Princess Cui DO Emergency Provider Active Start: October 18, 2024 Dr. Girish Campos DO Admit Provider Active Start: October 18, 2024 Dr. Girish Campos DO Other Provider Active Start: October 18, 2024 Dr. Girish Herrera MD Other Provider Active Star t: October 18, 2024 Dr. Joao Ramirez MD Attending Provider Active Start: October 18, 2024 Team Status: Active Member Role Status Dates Donal Will MD Primary Care Provider Active St art: October 18, 2024 Dr. Bandar Linares MD Attending Provider Activ e Start: October 18, 2024 Team Status: Active Member Role Status Dates Donal Will MD Primary Care Provider Active St art: October 18, 2024 Dr. Princess Cui DO Emergency Provider Active Start: October [...] Active Start: October 18, 2024 Man Lainez FREIGHT BOOKER, FREIGHT BOOKER-C Other Provider Active Start : October 18, [...] tart: October 18, 2024 Dr. Mark Mcfarland Other Provider Active Start : October 18, [...] Status: Active Member Role Status Dates Donal Will MD Primary Care Provider Active St art: October 19, 2024 Dr. Princess Cui DO Emergency Provider Active Start: October [...] Active Start: October 19, 2024 Man Lainez FREIGHT BOOKER, FREIGHT BOOKER-C Other Provider Active Start : October 19, [...] Status: Active Member Role Status Dates Donal Will MD Primary Care Provider Active St art: October 19, 2024 Dr. Princess Cui DO Emergency Provider Active Start: October 19, 2024 Dr. Griish Campos DO Admit Provider Active Start: October [...] Active Start: October 19, 2024 Man Lainez FREIGHT BOOKER, FREIGHT BOOKER-C Other Provider Active Start : October 19, [...] Status: Active Member Role Status Dates Donal Will MD Primary Care Provider Active St art: October 20, 2024 Dr. Princess Cui DO Emergency Provider Active Start: October [...] Active Start: October 20, 2024 Man Lainez FREIGHT BOOKER, FREIGHT BOOKER-C Other Provider Active Start : October 20, 2024 Janene Renner PA, PA Other Provider Active Start: October 20, 2024 Team Status: Active Member Role Status Dates Donal Will MD Primary Care Provider Active St art: October 21, 2024 Dr. Princess Cui , Emergency Provider Active Start: October [...] Active Start: October 21, 2024 Man Lainez FREIGHT BOOKER, FREIGHT BOOKER-C Other Provider Active Start : October 21, 2024 Janene Renner PA, PA Other Provider Active Start: October 21, 2024 Dr. Seth Garnica DO Attending Provider Active Start: October 21, 2024 Dr. Seth Garnica DO Other Provider Active Start: October 21, 2024 Dr. Girish Herrera MD Other Provider Active Star t: October 21, 2024 Team Status: Inactive Member Role Status Dates Donal Will MD Primary Care Provider Active St art: [...] Status: Active Member Role Status Dates Donal Will MD Primary Care Provider Active St art: [...] Status: Active Member Role Status Dates Donal Will MD Primary Care Provider Active St art: [...] Status: Active Member Role Status Dates Donal Will MD Primary Care Provider Active St art: [...] Status: Inactive Member Role Status Dates Donal Will MD Primary Care Provider Active St art: November 06, 2024 End: November 06, 2024 Dr. Seth Garnica DO Attending Provider Active Start: November 06, 2024 End: November 06, 2024 Dr. Seth Garnica DO Referring Provider Active Start: November 06, 2024 End: November 06, 2024 Team Status: Inactive Member Role Status Wes Will MD Primary Care Provider Active St art: November 10, 2024 End: November 10, 2024 Donal Will MD Attending Provider Active Start : November 10, 2024 End: November 10, 2024 Donal Will MD Referring Provider Active Start : November 10, 2024 End: November 10, 2024 Team Status: Inactive Member Role Status Wes Will MD Primary Care Provider Active St art: December 01, 2024 End: December 01, 2024 Donal Will MD Referring Provider Active Start : December 01, 2024 End: December 01, 2024 Dr. Joao Ramirez MD Attending Provider Active Start: December 01, 2024 End: December 01, 2024 Team Status: Inactive Member Role Status Wes Will MD Primary Care Provider Active St art: December 01, 2024 End: December 01, 2024 Dr. Joao Ramirez MD Attending Provider Active Start: December 01, 2024 End: December 01, 2024 Dr. Joao Ramirez MD Referring Provider Active Start: December 01, 2024 End: December 01, 2024 Team Status: Inactive Member Role Status Wes Will MD Primary Care Provider Active St art: December 08, 2024 End: December 08, 2024 Dr. Joao Ramirez MD Attending Provider Active Start: December 08, 2024 End: December 08, 2024 Dr. Joao Ramirez MD Referring Provider Active Start: December 08, 2024 End: December 08, 2024 Team Status: Inactive Member Role Status Wes Will MD Primary Care Provider Active St art: December 12, 2024 End: December 12, 2024 Dr. Joao Ramirez MD Attending Provider Active Start: December 12, 2024 End: December 12, 2024 Dr. Joao Ramirez MD Referring Provider Active Start: December 12, 2024 End: December 12, 2024 Team Status: Active Member Role Status Wes Will MD Primary Care Provider Active St art: December 12, 2024 Dr. Ramone Adams MD Attending Provider Active S tart: December 12, 2024 Team Status: Inactive Member Role Status Dates Donal Will MD Primary Care Provider Active St art: January 11, 2025 End: January 11, 2025 Donal Will MD Attending Provider Active Start : January 11, 2025 End: January 11, 2025 Donal Will MD Referring Provider Active Start : January 11, 2025 End: January 11, 2025 Parimutuel Ticket Seller Relationship Specialty Start Date End Date Donal Will MD [address] [facility] [address] [place] [address] PCP - General Internal Medicine 10/13/23 Yasmeen López MD Primary Staff Physician Cardiology 01/31/19 Sarah Reilly II OD [address] [place] [address] Referring Optometry 10/01/23 Team Status: Active Member Role Status Wes Will MD Primary Care Provider Active Team Status: Inactive Member Role Status Wes Will MD Primary Care Provider Active St art: March 12, 2025 End: March 12, 2025 Donal Will MD Referring Provider Active Start : March 12, 2025 End: March 12, 2025 TASNEEM Mei Attending Provider Active St art: March 12, 2025 End: March 12, 2025 Team Status: Active Member Role Status Dates Donal Will MD Primary Care Provider Active St art: March 12, 2025 TASNEEM Mei Attending Provider Active St art: March 12, 2025 TASNEEM Mei Referring Provider Active St art: March 12, 2025 Team Status: Active Member Role Status Dates Donal Will MD Primary Care Provider Active St art: March 13, 2025 Dr. Fitz Deleon , DO Emergency Provider Active Start: March 13, 2025 Dr. Milton Muñoz MD Admit Provider Active Start: March 13, 2025 Dr. Milton Muñoz MD Attending Provider Active Start: March 13, 2025 Team Status: Active Member Role Status Wes Will MD Primary Care Provider Active St art: March 13, 2025 Dr. Fitz Deleon , Emergency Provider Active Start: March 13, 2025 Dr. Milton Muñoz MD Admit Provider Active Start: March 13, 2025 Dr. Milton Muñoz MD Attending Provider Active Start: March 13, 2025 Dr. Milton Muñoz MD Other Provider Active Start: March 13, 2025 Team Status: Inactive Member Role Status Wes Will MD Primary Care Provider Active St art: March 12, 2025 End: March 12, 2025 TASNEEM Mei Attending Provider Active St art: March 12, 2025 End: March 12, 2025 TASNEEM Mei Referring Provider Active St art: March 12, 2025 End: March 12, 2025 Team Status: Inactive Member Role Status Wes Will MD Primary Care Provider Active St art: [...] 13, 2025 End: March 23, 2025 Dr. Princess Coronado DPM Other Provider Active S tart: [...] Status: Active Member Role Status Dates Donal Will MD Primary Care Provider Active St art: March 14, 2025 Dr. Fitz Deleon DO Emergency Provider Active Start: March 14, 2025 Dr. Milton Muñoz MD Admit Provider Active Start: March 14, 2025 Dr. Milton Muñoz MD Other Provider Active Start: March 14, 2025 Dr. Bandar Linaers MD Other Provider Active Start: March 14, 2025 Dr. Lorraine Gupta MD Other Provider Active Start: March 14, 2025 Dr. Seth Garnica DO Other Provider Active Start: March 14, 2025 Dr. Ramone Adams MD Attending Provider Active S tart: March 14, 2025 Team Status: Active Member Role Status Dates Donal Will MD Primary Care Provider Active St art: [...] Status: Active Member Role Status Dates Donal Will MD Primary Care Provider Active St art: [...] Status: Active Member Role Status Dates Donal Will MD Primary Care Provider Active St art: [...] Team Status: Active Member Role Status Wes Will MD Primary Care Provider Active St art: [...] Active Start: March 16, 2025 Dr. Seth Mosteller , DO Attending Provider Active Start: March 16, 2025 Dr. Seth Garnica , DO Other Provider Active Start: March 16, 2025 Dr. Joao Francois MD Other Provider Active Sta rt: March 16, 2025 Dr. Princess Coronado DPM Other Provider Active S tart: March 16, 2025 Team Status: Active Member Role Status Wes Will MD Primary Care Provider Active St art: March 16, 2025 Dr. Fitz Deleon , Emergency Provider Active Start: March 16, 2025 Dr. Milton Muñoz MD Admit Provider Active Start: March 16, 2025 Dr. Milton Muñoz MD Other Provider Active Start: March 16, 2025 Dr. Bandar Linares MD Other Provider Active Start: March 16, 2025 Dr. Lorranie Gupta MD Other Provider Active Start: March 16, 2025 Dr. Seth Garnica DO Other Provider Active Start: March 16, 2025 Dr. Joao Francois MD Attending Provider Active Start: March 16, 2025 Dr. Joao Francois MD Other Provider Active Sta rt: March 16, 2025 Dr. Princess Coronado DPM Other Provider Active S tart: March 16, 2025 Team Status: Active Member Role Status Dates Donal Will MD Primary Care Provider Active St art: March 16, 2025 Dr. Fitz Velazquez MD Attending Provider Active S tart: March 16, 2025 Dr. Princess Coronado DPM Referring Provider Active Start: March 16, 2025 Team Status: Active Member Role Status Dates Donal Will MD Primary Care Provider Active St art: [...] Active Sta rt: March 17, 2025 Dr. Princess Coronado DPM Other Provider Active S tart: March 17, 2025 Dr. Antonio Perdomo MD Attending Provider Active Start: March 17, 2025 Team Status: Active Member Role Status Wes Will MD Primary Care Provider Active St art: [...] Active Start: March 17, 2025 Dr. Seth aGrnica DO Attending Provider Active Start: March 17, 2025 Dr. Seth Garnica DO Other Provider Active Start: March 17, 2025 Dr. Joao Francois MD Other Provider Active Sta rt: March 17, 2025 Dr. Princess Coronado DPM Other Provider Active S tart: March 17, 2025 Team Status: Active Member Role Status Wes Will MD Primary Care Provider Active St art: [...] Active Sta rt: March 18, 2025 Dr. Princess Coronado DPM Other Provider Active S tart: March 18, 2025 Team Status: Active Member Role Status Wes Will MD Primary Care Provider Active St art: March 19, 2025 Dr. Fitz Deleon DO Emergency Provider Active Start: March 19, [...] Active Sta rt: March 19, 2025 Dr. Princess Coronado DPM Other Provider Active S tart: March 19, 2025 Dr. Fitz Ryan DO Attending Provider Active Start: March 19, 2025 Dr. Fitz Ryan DO Other Provider Active Star t: March 19, 2025 Dr. Seth Garnica DO Other Provider Active Start: March 19, 2025 Team Status: Active Member Role Status Wes Will MD Primary Care Provider Active St art: March 20, 2025 Dr. Fitz Deleon DO Emergency Provider Active Start: March 20, 2025 Dr. Milton Muñoz MD Admit Provider Active Start: March 20, 2025 Dr. Milton Muñoz MD Other Provider Active Start: March 20, 2025 Dr. Seth Garnica DO Other Provider Active Start: March 20, 2025 Dr. Bandar Linares MD Other Provider Active Start: March 20, 2025 Dr. Joao Francois MD Other Provider Active Sta rt: March 20, 2025 Dr. Lorraine Gupta MD Other Provider Active Start: March 20, 2025 Dr. Princess Coronado DPM Other Provider Active S tart: March 20, 2025 Dr. Aparna Mabry MD Attending Provider Active Start: March 20, 2025 Dr. Aparna Mabry MD Other Provider Active Star t: March 20, 2025 Dr. Fitz Ryan DO Other Provider Active Star t: March 20, 2025 Dr. Oswald Bonds MD Other Provider Active Start: March 20, 2025 Team Status: Active Member Role Status Wes Will MD Primary Care Provider Active St art: March 21, 2025 Dr. Fitz Deleon , Emergency Provider Active Start: March 21, 2025 Dr. Milton Muñoz MD Admit Provider Active Start: March 21, 2025 Dr. Milton Muñoz MD Other Provider Active Start: March 21, 2025 Dr. Seth Garnica , Other Provider Active Start: March 21, 2025 Dr. Bandar Linares MD Other Provider Active Start: March 21, 2025 Dr. Joao Francois MD Other Provider Active Sta rt: March 21, 2025 Dr. Lorraine Gupta MD Other Provider Active Start: March 21, 2025 Dr. Princess Coronado DPM Other Provider Active S tart: [...] Status: Active Member Role Status Dates Donal Will MD Primary Care Provider Active St art: March 22, 2025 Dr. Fitz Deleon , Emergency Provider Active Start: March 22, 2025 [...] Provider Active Start: March 22, 2025 Dr. Princess Coronado DPM Other Provider Active S tart: [...] Status: Active Member Role Status Dates Donal Will MD Primary Care Provider Active St art: [...] Sta rt: March 23, 2025 Dr. Lorraine Gutpa MD Other Provider Active Start: March 23, 2025 TAMARA WongM Other Provider Active S tart: March 23, 2025 Dr. Fitz Ryan DO Attending Provider Active Start: March 23, 2025 Dr. Fitz Ryan DO Other Provider Active Star t: March 23, 2025 Dr. Oswald Bonds MD Other Provider Active Start: March 23, 2025 Dr. Aparna Mabry MD Other Provider Active Star t: March 23, 2025 Team Status: Inactive Member Role Status Wes Will MD Primary Care Provider Active St art: April 04, 2025 End: April 04, 2025 Donal Will MD Referring Provider Active Start : April 04, 2025 End: April 04, 2025 TASNEEM Mei Attending Provider Active St art: April 04, 2025 End: April 04, 2025 Team Status: Active Member Role/Relationship Status Wes Will MD Primary Care Provider Active Team Status: Inactive Member Role/Relationship Status Wes Will MD Primary Care Provider Active St art: March 12, 2025 End: March 12, 2025 Donal Will MD Referring Provider Active Start : March 12, 2025 End: March 12, 2025 TASNEEM Mei Attending Provider Active St art: March 12, 2025 End: March 12, 2025 Team Status: Inactive Member Role/Relationship Status Wes Will MD Primary Care Provider Active St art: March 12, 2025 End: March 12, 2025 TASNEEM Mei Attending Provider Active St art: March 12, 2025 End: March 12, 2025 TASNEEM Mei Referring Provider Active St art: March 12, 2025 End: March 12, 2025 Team Status: Inactive Member Role/Relationship Status Dates Donal Will MD Primary Care Provider Active St art: [...] 13, 2025 End: March 23, 2025 Dr. Princess Coronado , TAMARAM Other Provider Active S tart: March 13, [...] Team Status: Active Member Role/Relationship Status Wes Will MD Primary Care Provider Active St art: March 13, 2025 Dr. Fitz Deleon DO Emergency Provider Active Start: March 13, 2025 Dr. Milton Muñoz MD Admit Provider Active Start: March 13, 2025 Dr. Milton Muñoz MD Attending Provider Active Start: March 13, 2025 Dr. Milton Muñoz MD Other Provider Active Start: March 13, 2025 Team Status: Active Member Role/Relationship Status Dates Donal Will MD Primary Care Provider Active St art: [...] Status: Active Member Role/Relationship Status Dates Donal Will MD Primary Care Provider Active St art: [...] Status: Active Member Role/Relationship Status Dates Donal Will MD Primary Care Provider Active St art: [...] March 15, 2025 Dr. Seth Garnica , Other Provider Active Start: March 15, 2025 Dr. Joao Francois MD Other Provider Active Sta rt: March 15, 2025 Team Status: Active Member Role/Relationship Status Dates Donal Will MD Primary Care Provider Active St art: March 15, 2025 Dr. Fizt Deleon , Emergency Provider Active Start: March [...] Status: Active Member Role/Relationship Status Dates Donal Will MD Primary Care Provider Active St art: [...] Active Sta rt: March 16, 2025 Dr. Princess Coronado , DPM Other Provider Active S tart: March 16, 2025 Team Status: Active Member Role/Relationship Status Dates Donal Will MD Primary Care Provider Active St art: March 16, 2025 Dr. Fitz Deleon , Emergency Provider Active Start: March 16, 2025 [...] Active Sta rt: March 16, 2025 Dr. Princess Coronado DPM Other Provider Active S tart: March 16, 2025 Team Status: Active Member Role/Relationship Status Dates Donal Will MD Primary Care Provider Active St art: March 16, 2025 Dr. Fitz Velazquez MD Attending Provider Active S tart: March 16, 2025 Dr. Princess Coronado DPM Referring Provider Active Start: March 16, 2025 Team Status: Active Member Role/Relationship Status Dates Donal Will MD Primary Care Provider Active St art: [...] Active Sta rt: March 17, 2025 Dr. Princess Coronado DPM Other Provider Active S tart: March 17, 2025 Dr. Antonio Perdomo MD Attending Provider Active Start: March 17, 2025 Team Status: Active Member Role/Relationship Status Dates Donal Will MD Primary Care Provider Active St art: [...] Active Sta rt: March 17, 2025 Dr. Princess Coronado DPM Other Provider Active S tart: March 17, 2025 Team Status: Active Member Role/Relationship Status Dates Donal Will MD Primary Care Provider Active St art: [...] Active Sta rt: March 18, 2025 Dr. Princess Coronado DPM Other Provider Active S tart: March 18, 2025 Team Status: Active Member Role/Relationship Status Dates Donal Will MD Primary Care Provider Active St art: [...] Active Sta rt: March 19, 2025 Dr. Princess Coronado DPM Other Provider Active S tart: March 19, 2025 Dr. Fitz Ryan DO Attending Provider Active Start: March 19, 2025 Dr. Fitz Ryan DO Other Provider Active Star t: March 19, 2025 Dr. Seth Garnica , DO Other Provider Active Start: March 19, 2025 Team Status: Active Member Role/Relationship Status Dates Donal Will MD Primary Care Provider Active St art: March 20, 2025 Dr. Fitz Deleon , DO Emergency Provider Active Start: March 20, 2025 Dr. Milton Muñoz MD Admit Provider Active Start: March 20, 2025 Dr. Milton Muñoz MD Other Provider Active Start: March 20, 2025 Dr. Seth Garnica DO Other Provider Active Start: March 20, 2025 Dr. Bandar Linares MD Other Provider Active Start: March 20, 2025 Dr. Joao Francois MD Other Provider Active Sta rt: March 20, 2025 Dr. Lorraine Gupta MD Other Provider Active Start: March 20, 2025 Dr. Princess Coronado DPM Other Provider Active S tart: [...] Status: Active Member Role/Relationship Status Dates Donal Will MD Primary Care Provider Active St art: [...] Provider Active Start: March 21, 2025 Dr. Princess Coronado DPM Other Provider Active S tart: [...] Status: Active Member Role/Relationship Status Dates Donal Will MD Primary Care Provider Active St art: [...] Provider Active Start: March 22, 2025 Dr. Princess Coronado DPM Other Provider Active S tart: [...] Status: Active Member Role/Relationship Status Dates Donal Will MD Primary Care Provider Active St art: March 23, 2025 Dr. Fitz Deleon , Emergency Provider Active Start: March 23, 2025 Dr. Milton Muñoz MD Admit Provider Active Start: March 23, 2025 Dr. Milton Muñoz MD Other Provider Active Start: March 23, 2025 Dr. Seth Garnica , Other Provider Active Start: March 23, 2025 Dr. Bandar Linares MD Other Provider Active Start: March 23, 2025 Dr. Joao Francois MD Other Provider Active Sta rt: March 23, 2025 Dr. Lorraine Gupta MD Other Provider Active Start: March 23, 2025 Dr. Princess Coronado , DPM Other Provider Active S tart: March 23, 2025 Dr. Fitz Ryan , DO Attending Provider Active Start: March 23, 2025 Dr. Fitz Ryan , DO Other Provider Active Star t: March 23, 2025 Dr. Oswald Bonds MD Other Provider Active Start: March 23, 2025 Dr. Aparna Mabry MD Other Provider Active Star t: March 23, 2025 Team Status: Inactive Member Role/Relationship Status Wes Will MD Primary Care Provider Active St art: April 04, 2025 End: April 04, 2025 Donal Will MD Referring Provider Active Start : April 04, 2025 End: April 04, 2025 TASNEEM Mei Attending Provider Active St art: April 04, 2025 End: April 04, 2025 Team Status: Inactive Member Role/Relationship Status Wes Will MD Primary Care Provider Active St art: May 16, 2025 End: May 16, 2025 Donal Will MD Referring Provider Active Start : May 16, 2025 End: May 16, 2025 TASNEEM Mei Attending Provider Active St art: May 16, 2025 End: May 16, 2025 Team Status: Inactive Member Role/Relationship Status Wes Will MD Primary Care Provider Active St art: May 16, 2025 End: May 16, 2025 TASNEEM Mei Attending Provider Active St art: May 16, 2025 End: May 16, 2025 TASNEEM Mei Referring Provider Active St art: May 16, 2025 End: May 16, 2025 Team Status: Active Member Role/Relationship Status Wes Will MD Primary Care Provider Active St art: May 21, 2025 Donal Will MD Attending Provider Active Start : May 21, 2025 Donal Will MD Referring Provider Active Start : May 21, 2025 Team Status: Inactive Member Role/Relationship Status Wes Will MD Primary Care Provider Active St art: May 21, 2025 End: May 21, 2025 Donal Will MD Attending Provider Active Start : May 21, 2025 End: May 21, 2025 Donal Will MD Referring Provider Active Start : May 21, 2025 End: May 21, 2025 [employer]icket [employer] Relationship Specialty Start Date End Date Donal Will MD [address] [place], [place] [id number] PCP - General Internal Medicine 10/13/23 Yasmeen López MD Primary Staff Physician Cardiology 01/31/19 Sarah Reilly II OD [address] [place] [address] Referring Optometry 10/01/23 Team Status: Active Member Role/Relationship Status Dates Donal Will MD Primary Care Provider Active St art: June 25, 2025 Dr. Love Rushing MD Emergency Provider Active S tart: June 25, 2025 Dr. Ana Chambers MD Admit Provider Active St art: June 25, 2025 Dr. 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 Relationship Specialty Start Date End Date Girish Simon MD [address] [place] [address] PCP - General 10/02/19 [employer] Relationship Specialty Start Date End Date Donal Will MD [address] [place] [address] PCP - General Family Medicine 06/28/25 Scheduled Active and Recently Administ ered Medications (unrecognized section and content) Medication Order 08/24/2023 08/25/2023 08/26/2023 ketorolac (Acular) 0.5 % ophthalmic solution 1 drop (COMPLETED) 1 drop, Left Eye, Every 5 min, First dose on Janneth 08/26/23 at 1100, For 4 doses, Preprocedure 1105 (Given - Provid er: Janene Walton RN)1117 (Given - Provider: aJnene Walton RN)1127 (Given - Provider: Janene Walton [...] Janene Walton RN)1135 (Given - Provider: Janene Walton, RN) midazolam (Versed) injection 1 mg (COMPLETED) [...] 1236, Intraprocedure 1236 (Given - Provid er: Dilan Liz MD) lidocaine 1%-phenylephrine 1.5% intravitreal injection (CANCELED) As needed, Starting on Janneth 08/26/23 at 1236, Intraprocedure 1236 (Given - Provid er: Dilan Liz MD) moxifloxacin (Vigamox) 0.5 % ophthalmic solution (CANCELED) As needed, Starting on Janneth 08/26/23 at 1238, Intraprocedure 1238 (Given - Provid er: Dilan Liz MD - Comment: intracameral) Scheduled Medication Order [...] (New Bag - Provider: Girish Najera DO) Scheduled Medication Order 07/18/2025 07/19/2025 07/20/2025 apixaban (ELIQUIS) tablet 2.5 mg 2.5 mg, Oral, 2 times daily, First dose on 07/15/25 at 2000, Indication: Other: (specify), Indication: (written response): SVC Thrombus 0839 (Given - Provider: Misael Hawkins LPN)2030 (Given - Provider: Jona Harrington LPN) 0837 (Given - Provider: Ricarda Ruano RN)2053 (Given - Provider: Erica Dubois RN) 0858 (Given - Provider: Mario Gale RN) atorvastatin (LIPITOR) tablet 10 mg 10 mg, Oral, Nightly, First dose (after last modification) on Wed07/10/25 at 2100 2029 (Given - Provider: Jona Harrington LPN) 2053 (Given - Provider: Erica Dubois RN) dextrose (GLUTOSE) 40 % gel 15 g 15 g, Oral, Once, On Wed07/20/25 at 0945, For 1 dose, Per Hypoglycemia Protocol: Blood Sugar: 51-69 mg/dL. Patient Condition: patient is ALERT, ABLE to swallow/eat and NOT NPO. Intervention: Administer oral glucose gel (15 grams carbohydrate) to swallow 0945 (Not Given - Provider: Mario Gale RN - Reason: Patient/family refused) epoetin sonia-epbx (RETACRIT) injection 10,000 Units (COMPLETED) 10,000 Units, Intravenous, Once in dialysis, On Wed07/18/25 at 0600, For 1 dose, Dialysis Hold, Check blood pressure before dose of epoetin sonia-EPBX; do not give if diastolic blood pressure is greater than 110 or 180 systolic. 0525 (Given - Provider: Izabel Flores RN) epoetin sonia-epbx (RETACRIT) injection 6,000 Units (COMPLETED) 6,000 Units, Intravenous, Once in dialysis, On Wed07/20/25 at 0515, For 1 dose, Dialysis Hold, Check blood pressure before dose of epoetin sonia-EPBX; do not give if diastolic blood pressure is greater than 110 or 180 systolic. 0504 (Given - Provider: Aparna Toscano, SHON) famotidine (PEPCID) tablet 20 mg 20 mg, Oral, Nightly, First dose (after last modification) on Wed07/10/25 at 2100 2029 (Given - Provider: Jona Harrington LPN) 2053 (Given - Provider: Erica Dubois RN) hydrALAZINE (APRESOLINE) tablet 10 mg 10 mg, Oral, Every 8 hours scheduled, First dose on Wed07/03/25 at 1400, Hold for SBP <110 0600 (Automatically Held - Provider: Adrianne Mi PA-C)1400 (Automatically Held - Provider: Adrianne Mi PA-C)2200 (Automatically Held - Provider: Adrianne Mi PA-C) 0600 (Automatically Held)1400 (Automatically Held)2200 (Automatically Held) 0600 (Automatically Held)0752 (Unheld by provider - Provider: Aly Abrams DO)1400 (Due) insulin lispro (AdmeLOG,HumaLOG) injection 0-15 Units(Linked Group 1) 0-15 Units, Subcutaneous, At bedtime, First dose on Wed07/05/25 at 2100, IF initial POC glucose is greater than 250, administer insulin as directed and re-check POC glucose no sooner than 2 hours after administration. THEN notify provider if POC glucose is still greater than 250., For nightly BG greater than 250, give: Half ( ) Corrective Scale, Nightly Prandial Snack Dosing Method: NO Snack Coverage - Corrective Scale ONLY, Nightly Insulin Dose Corrective Scale: FOLLOW DAYTIME Prandial Corrective Scale, Corrective Insulin Regimen (select desired scale to cover BG result): Insulin SENSITIVE Scale, (REMINDER: Nightly Insulin Dose Corrective Scale will be automatically calculated to be of the daytime scale), Dose Reduction Threshold (at meals) for POC Blood Glucose less than or equal to: 80, For Downtime Calculator, use: Insulin SC NIGHTtime 2036 (Given - Provider: Jona Harrington LPN - Comment: order parameters not met) 2100 (Not Given - Provider: Erica Dubois RN - Reason: Order parameters not met) insulin lispro (AdmeLOG,HumaLOG) injection 0-30 Units 0-30 Units, Subcutaneous, 3 times daily before meals, First dose on Wed07/05/25 at 1130, * Dose should be given EITHER: No sooner than 10-15 minutes BEFORE a meal (Specific Prandial Doses or NO Prandial Dose - Corrective Scale ONLY) - OR - Immediately AFTER meal completed (Carb Counting Ratio), Prandial Insulin Dosing Method: NO Prandial Dose - Corrective Scale ONLY, Corrective Insulin Regimen (select desired scale to cover BG result): Insulin SENSITIVE Scale, Dose Reduction Threshold (at meals) for POC Blood Glucose less than or equal to: 80, For Downtime Calculator, use: Insulin SC MEALtime PREprandial 0841 (Not Given - Provider: Misael Hawkins LPN - Reason: Order parameters not met)1300 (Not Given - Provider: Misael Hawkins LPN - Reason: Order parameters not met)1820 (Given - Provider: Misael Hawkins LPN) 0730 (Not Given - Provider: Ricarda Ruano RN - Reason: Order parameters not met)1130 (Not Given - Provider: Ricarda Ruano RN - Reason: Order parameters not met)1630 (Not Given - Provider: Ricarda Ruano RN - Reason: Order parameters not met) 0730 (Not Given - Provider: Mario Gale RN - Reason: Order parameters not met)1130 (Not Given - Provider: Mario Gale RN - Reason: Order parameters not met) levothyroxine (SYNTHROID, LEVOTHROID) tablet 112 mcg 112 mcg, Oral, Daily, First dose (after last modification) on Wed07/10/25 at 0600, Avoid administration with soybean flour, cottonseed meal, walnuts, and dietary fiber. Administer at least 1 hour before breakfast. Hold continuous tube feeds for at least 1 hour before until 1 hour after each dose. Flush tube with 30mL of water before and after administration. Tube feed rate may need adjusted to meet caloric needs. 0600 (Not Given - Provider: Misael Hawkins LPN - Reason: Patient not available - Comment: patient in dialysis) 0634 (Given - Provider: Jona Harrington LPN) 0600 (Not Given - Provider: Erica Dubois RN - Reason: Other - Comment: pt at dialysis) lidocaine patch 1 patch 1 patch, Transdermal, Administer over 12 Hours, Daily, First dose on Wed07/17/25 at 0900, Apply to R hip for 12 hours, then remove patch for 12 hours. 0840 (Patch Applied - Provider: Misael Hawkins LPN - Comment: right hip)2039 (Patch Removed - Provider: Jona Harrington LPN) 08 (Patch Applied - Provider: Ricarda Runao RN)2056 (Patch Removed - Provider: Erica Dubois RN) 0858 (Patch Applied - Provider: Mario Gale RN - Comment: right hip)1435 (Due: Patch Removed - Provider: Discharge Provider, Automatic - Comment: Time automatically adjusted from order being discontinued) lidocaine patch 2 patch 2 patch, Transdermal, Administer over 12 Hours, Daily, First dose on Wed07/03/25 at 0900, Apply to Lower back for 12 hours, then remove patch for 12 hours. 838 (Patch Applied - Provider: Misael Hawkins LPN - Comment: lower back)2038 (Patch Removed - Provider: Jona Harrington LPN) 838 (Patch Applied - Provider: Ricarda Ruano RN)2056 (Patch Removed - Provider: Erica Dubois RN) 0900 (Patch Applied - Provider: Mario Gale RN - Comment: lower back)1435 (Due: Patch Removed - Provider: Discharge Provider, Automatic - Comment: Time automatically adjusted from order being discontinued) melatonin Tab 5 mg 5 mg, Oral, Nightly, First dose (after last modification) on Wed07/10/25 at 2099 2029 (Given - Provider: Jona Harrington LPN) 2053 (Given - Provider: Erica Dubois RN) mirtazapine (REMERON) tablet 7.5 mg 7.5 mg, Oral, Nightly, First dose on Wed07/04/25 at 2100 2031 (Given - Provider: Jona Harrington LPN) 2102 (Given - Provider: Erica Dubois RN) QUEtiapine (SEROQUEL) tablet 25 mg 25 mg, Oral, Nightly, First dose (after last modification) on Wed07/10/25 at 2100, May cause QT interval prolongation. 2029 (Given - Provider: Jona Harrington LPN) 2053 (Given - Provider: Erica Dubois RN) senna-docusate (SENNA-S) 8.6-50 mg per tablet 1 tablet 1 tablet, Oral, 2 times daily, First dose (after last modification) on Wed07/10/25 at 0900, Do not crush or chew. Hold for loose stool and do not give to patients with ABD surgery. Do Not Crush or Chew if administering orally due to bitter taste. May be crushed if given via tube. 838 (Given - Provider: Misael Hawkins LPN)2029 (Given - Provider: Jona Harrington LPN) 0837 (Given - Provider: Ricarda Ruano RN)2053 (Given - Provider: Erica Dubois RN) 0858 (Given - Provider: Mario Gale RN) sodium chloride (PF) (NS) flush 10 mL 10 mL, Intracatheter, Every 8 hours scheduled, First dose on Wed06/28/25 at 2200, Flush UNUSED central venous catheter lumens. 0600 (Due)1400 (Canceled Entry - Provider: Misael Hawkins LPN)2200 (Canceled Entry - Provider: Jona Harrington LPN) 0600 (Canceled Entry - Provider: Jona Harrington LPN)1400 (Canceled Entry - Provider: Ricarda Ruano RN)2103 (Given - Provider: Erica Dubois RN) 0600 (Canceled Entry - Provider: Erica Dubois RN)1400 (Due) sodium chloride (PF) (NS) flush 10-20 mL (COMPLETED)(Linked Group 2) 10-20 mL, Intravenous, Once in dialysis, On Wed07/18/25 at 0600, For 1 dose, Dialysis Hold, Flush each TEGO caps on cath ports with 10 mL normal saline post-treatment (dwells). Document total volume used for all TEGO caps. 0528 (Given - Provider: Izabel Flores RN) sodium chloride (PF) (NS) flush 5 mL(Linked Group 3) 5 mL, Intravenous, Every 8 hours scheduled, First dose on Wed06/28/25 at 2200, Saline lock 0600 (Due)1400 (Canceled Entry - Provider: Misael Hawkins LPN)2200 (Canceled Entry - Provider: Jona Harrington LPN) 0600 (Canceled Entry - Provider: Jona Harrington LPN)1400 (Canceled Entry - Provider: Ricarda Ruano RN)2104 (Given - Provider: Erica Dubois RN) 0600 (Canceled Entry - Provider: Erica Dubois RN)1400 (Due) vancomycin (VANCOCIN) 750 mg in sodium chloride 0.9% (NS) 150 mL IVPB (COMPLETED) 750 mg, Intravenous, at 150 mL/hr, Once, On Wed07/18/25 at 1800, For 1 dose, Give after hemodialysis, Indication: Other: (specify), Indication: MRSA Bacteremia 1818 (New Bag - Provider: Misael Hawkins LPN) vancomycin (VANCOCIN) 750 mg in sodium chloride 0.9% (NS) 150 mL IVPB (COMPLETED) 750 mg, Intravenous, at 150 mL/hr, Once, On Wed07/20/25 at 1030, For 1 dose, Administer prior to discharge. , Indication: Other: (specify), Indication: Bacteremia 1047 (New Bag - Provider: Mario Gale RN)1147 (Stopped - Provider: Mario Gale RN) Vancomycin Intermittent Therapy 1 each, Intravenous, as indicated by pharmacokinetics, Starting on Wed07/12/25 at 0836, #Do Not Chart On This Order# This is a consult order for pharmacy to dose vancomycin., Indication: Other: (specify), Indication: high grade MRSA infection, Is this a hemodialysis patient? Yes PRN Medication Order 07/18/2025 07/19/2025 07/20/2025 acetaminophen (TYLENOL) tablet 650 mg 650 mg, Oral, Every 6 hours PRN, headaches, mild pain, fever 100.4 F or greater, Starting on Wed07/02/25 at 2052 0445 (Given - Provider: Jona Harrington LPN)2045 (Given - Provider: Jona Harrington LPN) 0837 (Given - Provider: Ricarda Ruano RN)1856 (Given - Provider: Ricarda Ruano RN) 0503 (Given - Provider: Aparna Toscano RN)1342 (Given - Provider: Mario Gale RN) bisacodyL (DULCOLAX) suppository 10 mg 10 mg, Rectal, Daily PRN, constipation, Starting on Janneth 06/28/25 at 1825 magic mouthwash oral suspension 30 mL, Swish & Spit, Every 4 hours PRN, for mouth irritaion, Starting on 07/07/25 at 1200, Each Magic Mouthwash contains: Lidocaine Viscous 2%, Diphenhydramine Elixir 12.5mg/5ml, Maalox Plus (Equiv) methocarbamoL (ROBAXIN) tablet 500 mg 500 mg, Oral, 3 times daily PRN, muscle spasms, Starting on Wed07/17/25 at 0802 1306 (Given - Provider: Misael Hawkins LPN) naloxone (NARCAN) injection 0.1 mg(Linked Group 4) 0.1 mg, Intravenous, As needed, opioid reversal, For respiratory rate less than or equal to 8 per minute., Starting on Wed06/29/25 at 1024, Mix nalOXone (NARCAN) 0.4 mg (1mL) with 9 mL of Normal Saline to total 10 mL. Administer 0.1 mg (2.5mL) IV Push every 2 minutes until respiratory rate is 10 or greater. naloxone (NARCAN) injection 0.4 mg(Linked Group 4) 0.4 mg, Intravenous, As needed, opioid reversal, patient is pulseless, breathless, and unresponsive, Starting on Wed06/29/25 at 1024, Call a code first, then administer naloxone dose undiluted IV Push over 30 seconds. oxyCODONE (ROXICODONE) immediate release tablet 5 mg 5 mg, Oral, Every 4 hours PRN, moderate to severe pain, Starting on 07/16/25 at 0943 1306 (Given - Provider: Misael Hawkins LPN) 0837 (Given - Provider: Ricarda Ruano, SHON) 0858 (Given - Provider: Mario Gale RN) sodium chloride (PF) (NS) 0.9 % contrast line flush 80 mL(Linked Group 5) 80 mL, Intravenous, Once in imaging, contrast, Per teacher industrial arts (Radiology), Starting on 06/30/25 at 1054, For 1 dose, 30 mL BEFORE contrast administration 50 mL AFTER contrast administration sodium chloride (PF) (NS) flush 10-20 mL 10-20 mL, Intravenous, As needed, line care, TEGO capped ports with 10ml when CRRT needs to be disconnected, Starting on [place] 07/01/25 at 0952, [] Document total volume used to flush all TEGO capped ports when CRRT needs to be disconnected. sodium chloride (PF) (NS) flush 5 mL(Linked Group 3) 5 mL, Intravenous, As needed, line care, Starting on Janneth 06/28/25 at 1825 sodium chloride (PF) (NS) flush 5 mL(Linked Group 6) 5 mL, Intravenous, As needed, line care, Starting on Wed06/29/25 at 1415 sodium chloride 0.9% (NS) bolus 200 mL 200 mL, Intravenous, As needed, hypotension management during hemodialysis, Starting on Wed07/20/25 at 0422, For 1 dose, Dialysis Hold sodium chloride 0.9% (NS)(Linked Group 3) 0-150 mL/hr, Intravenous, As needed, To flush line after IV infusions when no maintenance IV ordered or a compatibility issue. Infuse 20ml at the same rate as the secondary infusion, Starting on Wed06/28/25 at 1825, Run as Primary IV. NOT intended for KVO. sodium chloride 0.9% (NS)(Linked Group 6) 0-150 mL/hr, Intravenous, As needed, To flush line after IV infusions when no maintenance IV ordered or a compatibility issue. Infuse 20ml at the same rate as the secondary infusion, Starting on Wed06/29/25 at 1415, Run as Primary IV. NOT intended for KVO. sodium chloride 0.9% (NS) 1,000 mL, CRRT, As needed, Place on non-used scale (PBP, Dialysate, Replacement), clamp, and set rate to zero., Starting on Wed07/01/25 at 0952 sodium chloride 0.9% (NS) () 1,000-3,000 mL, Hemodialysis, As needed, other, Priming solution for HD system, Starting on Wed07/18/25 at 0510, For 12 hours, Dialysis Hold 0526 ([place] - Provider: Izabel Flores RN) sodium chloride 0.9% (NS) 1,000-3,000 mL, Hemodialysis, As needed, other, Priming solution for HD system, Starting on Wed07/20/25 at 0422, For 12 hours, Dialysis Hold 0744 (New Bag - Provider: Aparna Toscano, SHON)0745 (Stopped - Provider: Aparna Toscano, SHON) sodium chloride 0.9% (NS) 100-200 mL, Intravenous, Every 30 min PRN, other, To reduce filter clotting, Starting on Wed07/20/25 at 0422, For 12 hours, Dialysis Hold, [] Administration in hemodialysis by dialysis trained nurses or certified hemodialysis technicians ONLY Administer 100 mL q 30 min if no visible signs of clotting Administer 200mL q 30 min if visible signs of clotting Increase UF goal to achieve net removal Linked Groups Order Group 1: insulin lispro (AdmeLOG,HumaLOG) injection 0-15 UnitsJump to med 0-15 Units, Subcutaneous, At bedtime, First dose on Wed07/05/25 at 2100, IF initial POC glucose is greater than 250, administer insulin as directed and re-check POC glucose no sooner than 2 hours after administration. THEN notify provider if POC glucose is still greater than 250., For nightly BG greater than 250, give: Half ( ) Corrective Scale, Nightly Prandial Snack Dosing Method: NO Snack Coverage - Corrective Scale ONLY, Nightly Insulin Dose Corrective Scale: FOLLOW DAYTIME Prandial Corrective Scale, Corrective Insulin Regimen (select desired scale to cover BG result): Insulin SENSITIVE Scale, (REMINDER: Nightly Insulin Dose Corrective Scale will be automatically calculated to be of the daytime scale), Dose Reduction Threshold (at meals) for POC Blood Glucose less than or equal to: 80, For Downtime Calculator, use: Insulin SC NIGHTtime And Notify physician (CANCELED) Routine, Until discontinued, Starting on Wed07/05/25 at 0942, Until Specified, Other: IF HS POC Glucose RE-CHECK Greater than 250, If initial HS POC glucose is greater than 250, administer insulin as directed and re-check POC glucose no sooner than 2 hours after administration. IF RE-CHECK POC glucose is still greater than 250, notify provider. Group 2: Nursing apply and maintain TEGO caps for hemodialysis (CANCELED) Routine, Weekly, First occurrence on Wed07/18/25 at 0511, For 12 hours, Specify: apply and maintain TEGO caps for hemodialysis, If patient is admitted with hemodialysis ports fitted with TEGO caps, replace the caps. Replace TEGO caps every 7 days thereafter while in the hospital. Flush TEGO caps with 10 mL Normal Saline after hemodialysis., Dialysis Hold And sodium chloride (PF) (NS) flush 10-20 mL (COMPLETED)Jump to med 10-20 mL, Intravenous, Once in dialysis, On Wed07/18/25 at 0600, For 1 dose, Dialysis Hold, Flush each TEGO caps on cath ports with 10 mL normal saline post-treatment (dwells). Document total volume used for all TEGO caps. Group 3: Saline lock IV (CANCELED) Routine, Continuous, Starting on Janneth 06/28/25 at 1826, Until Specified And sodium chloride (PF) (NS) flush 5 mLJump to med 5 mL, Intravenous, As needed, line care, Starting on Janneth 06/28/25 at 1825 And sodium chloride (PF) (NS) flush 5 mLJump to med 5 mL, Intravenous, Every 8 hours scheduled, First dose on Janneth 06/28/25 at 2200, Saline lock And sodium chloride 0.9% (NS)Jump to med 0-150 mL/hr, Intravenous, As needed, To flush line after IV infusions when no maintenance IV ordered or a compatibility issue. Infuse 20ml at the same rate as the secondary infusion, Starting on Janneth 06/28/25 at 1825, Run as Primary IV. NOT intended for KVO. Group 4: naloxone (NARCAN) injection 0.1 mgJump to med 0.1 mg, Intravenous, As needed, opioid reversal, For respiratory rate less than or equal to 8 per minute., Starting on Wed06/29/25 at 1024, Mix nalOXone (NARCAN) 0.4 mg (1mL) with 9 mL of Normal Saline to total 10 mL. Administer 0.1 mg (2.5mL) IV Push every 2 minutes until respiratory rate is 10 or greater. And Notify physician (CANCELED) STAT, Until discontinued, Starting on Wed06/29/25 at 1025, Until Specified, Respiratory rate less than: 8, For respiratory rate less than or equal to 8, notify physician and/or appropriate staff for additional orders. And naloxone (NARCAN) injection 0.4 mgJump to med 0.4 mg, Intravenous, As needed, opioid reversal, patient is pulseless, breathless, and unresponsive, Starting on Wed06/29/25 at 1024, Call a code first, then administer naloxone dose undiluted IV Push over 30 seconds. Group 5: sodium chloride (PF) (NS) 0.9 % contrast line flush 10 mL (COMPLETED) 10 mL, Intravenous, Once in imaging, contrast, Per teacher industrial arts (Radiology) for line patency check prior to contrast administration, Starting on Wed06/30/25 at 1054, For 1 dose And sodium chloride (PF) (NS) 0.9 % contrast line flush 80 mLJump to med 80 mL, Intravenous, Once in imaging, contrast, Per teacher industrial arts (Radiology), Starting on Wed06/30/25 at 1054, For 1 dose, 30 mL BEFORE contrast administration 50 mL AFTER contrast administration Group 6: Insert peripheral IV (CANCELED) ELI, Once, On Wed06/29/25 at 1416, For 1 occurrence And Saline lock IV (CANCELED) ELI, Once, On Wed06/29/25 at 1416, For 1 occurrence And sodium chloride (PF) (NS) flush 5 mLJump to med 5 mL, Intravenous, As needed, line care, Starting on Wed06/29/25 at 1415 And sodium chloride 0.9% (NS)Jump to med 0-150 mL/hr, Intravenous, As needed, To flush line after IV infusions when no maintenance IV ordered or a compatibility issue. Infuse 20ml at the same rate as the secondary infusion, Starting on Wed06/29/25 at 1415, Run as Primary IV. NOT intended for KVO. Scheduled Medication Order 07/26/2025 07/27/2025 07/28/2025 aodvcirh-ekhqiqmfwp-tevphyf ine (Cetacaine) spray 2 spray (COMPLETED) 2 spray, Topical, Once, On Wed07/28/25 at 0220, For 1 dose, Apply to: nose. 0224 (Given - Provid er: Molly Mendez RN) morphine injection 4 mg (COMPLETED) 4 mg, intravenous, Once, On Wed07/27/25 at 2330, For 1 dose 2338 (Given - Provider: Molly Mendez, SHON) morphine injection 4 mg (COMPLETED) 4 mg, intravenous, Once, On Wed07/28/25 at 0140, For 1 dose 0141 (Given - Provid er: Cecy Jay RN) ondansetron (Zofran) injection 4 mg (COMPLETED) 4 mg, intravenous, Once, On Wed07/27/25 at 2330, For 1 dose, When administering via IV Push, administer over 3-5 minutes. 2337 (Given - Provider: Molly Mendez RN) ondansetron (Zofran) injection 4 mg (COMPLETED) 4 mg, intravenous, Once, On 07/28/25 at 0235, For 1 dose, When administering via IV Push, administer over 3-5 minutes. 0232 (Given - Provid er: Molly Mendez RN) PRN Medication Order 07/26/2025 07/27/2025 07/28/2025 oxygen (O2) therapy 1 Dose, inhalation, Continuous - O2/gases, oxygen, Starting on 07/28/25 at 0320, Device: Nasal Cannula, Rate in liters per minute: 2 Lpm 0224 (Start - Provid er: Molly Mendez RN) Goals (unrecognized section and content) Goals may [...] BE BASED ON THE PRIMARY CLINICAL RECORDS. [employer] [facility]. provides no warranty or guarantee of the accuracy or completeness of information in this document.
== END | disposition home or self-care (01) ==
LOC: OPMRI 07:05
PROVIDERS: PCP Family Medicine
DX: M46.26 Osteomyelitis of vertebra, lumbar region (principal)
CPT/HCPCS: 72148

== ENCOUNTER 2025-10-29 11:04 | Inpatient (IN) | payer MEDICARE, SELFPAY ==
[2025-10-29] VITALS (19 sets, daily range): BP systolic 85–156; BP diastolic 54–110; PULSE 98–137; RESP 14–29; TEMP 36–36.6; O2SAT 90–99; BMI 35.3; BMI 31.7
--- NOTE | 2025-10-29 11:23 | EKG12_ITS ---
Test Reason : WEAKNESS Blood Pressure : */* mmHG Vent. Rate : 99 BPM Atrial Rate : * BPM P-R Int : * ms QRS Dur : 104 ms QT Int : 362 ms P-R-T Axes : * -16 129 degrees QTcB Int : 464 ms Atrial fibrillation Indeterminate axis Low voltage QRS ST & T wave abnormality, consider inferolateral ischemia Abnormal ECG Confirmed by WANDA SANTIAGO, COY ([id number]), purchase request editor DANNIELLE DENNIS ([id number]) on 10/30/2025 1:22:23 PM Referred By: YORDY/ELEANOR Confirmed By: COY MUÑOZ MD
--- NOTE | 2025-10-29 11:24 | EX.ED.DYSGE1 ---
HPI History of Present Illness Chief Complaint: Weakness Detail of Chief Complaint: Generalized weakness Informant: patient Narrative Narrative: Patient presents via EMS from home with complaint generalized weakness. called the squad because she just did not doing well and not getting out of bed. She is a dialysis patient and last one 2 days ago. States she was in a halfway up until about 2 weeks ago. She complains of some bleeding from her fingertips which is been ongoing over the last 2 weeks after nurses at the halfway applied some sort of lotion to her fingertips they start to crack and bleed. Patient on Eliquis. Admits to occasional blood in her stool. She tells me her blood pressure has been running low for some time. She makes minimal urine. She has had no vomiting or diarrhea. She denies chest pain. Denies fever or recent illness. She feels like her mouth is dry. [facility] Medical History Aortic valve stenosis Congestive heart failure Hypertension Type 2 diabetes mellitus with diabetic polyneuropathy Pulmonary hypertension LV dysfunction MRSA (methicillin resistant staph aureus) culture positive Hypothyroidism Osteoporosis Morbid obesity with BMI of 45.0-49.9, adult Wears glasses Post-menopausal Thyroid disease Diabetes Uses wheelchair Ambulates with cane Arthritis High cholesterol Back pain TIA (transient ischemic attack) Dietary restriction Non-smoker History of pain when walking History of transesophageal echocardiography (DESTIN) Cardiology follow-up encounter Diabetes Home Medications ?Medication ?Instructions ?Recorded ?Last Taken ?Type atorvastatin 10 mg tablet 10 mg PO QHS cholesterol 08/31/22 10/28/25 History apixaban 2.5 mg tablet (Eliquis) 2.5 mg PO BID 10/29/25 10/28/25 History doxycycline hyclate 100 mg capsule 100 mg PO Q12H 10/29/25 10/28/25 History ergocalciferol (vitamin D2) 1,250 1,250 mcg PO QWEEK 10/29/25 10/28/25 History mcg (50,000 unit) capsule levothyroxine 112 mcg tablet 112 mcg PO DAILY 10/29/25 10/28/25 History mirtazapine 7.5 mg tablet 7.5 mg PO DAILY 10/29/25 Unknown History ondansetron HCl 4 mg tablet 4 mg PO Q8H PRN PRN nausea and 10/29/25 Unknown History vomiting vitamin B complex-vitamin C-folic 1 tab PO DAILY 10/29/25 10/28/25 History acid 0.8 mg tablet (Rajani-Balbir) Allergy/AdvReac Type Severity Reaction Status Date / Time No Known Allergies Allergy Verified 10/29/25 11:10 Family History Mother Hypertension Father Heart disease Surgical History Hx of colonoscopy Hx of cholecystectomy H/O: hysterectomy Social History household members: spouse Smoking Status: Never smoker alcohol intake: never substance use type: does not use caffeine: No ROS ROS ED ROS Narrative Generalized weakness Review of Systems ROS Unobtainable: other Constitutional Constitutional ED: Reports lethargy; Denies chills, fever(s), sweats or weight loss Eyes Eyes: Denies blurry vision, change in vision or diplopia ENT ENT ED: Reports other Details: Dry mouth ; Denies rhinorrhea or sore throat Cardiovascular Cardiovascular: Reports chest pain and racing heartbeat; Denies orthopnea Respiratory/Chest Respiratory/Chest: Reports dyspnea; Denies cough, dyspnea on exertion, orthopnea or sputum Gastrointestinal Gastrointestinal: Denies abdominal pain, diarrhea, nausea or vomiting Genitourinary Genitourinary ED: Denies dysuria, hematuria or urinary frequency Musculoskeletal Musculoskeletal: Denies arthralgias, back pain, myalgias or neck pain Integumentary Denies abscess, Abrasions or rash Neurologic Neurologic: Reports weakness; Denies headache(s) Psychiatric Psychiatric: Denies anxiety, depression or suicidal thoughts Endocrine Endocrinology: Denies polydipsia, polyphagia or polyuria Hematologic/Lymphatic Hematologic/Lymphatic: Denies easy bleeding, easy bruising or lymphadenopathy Allergic/Immunologic Allergic/Immunologic ED: Denies mouth swelling, tongue swelling or urticaria EXAM Physical Exam Const Vital Signs: 10/29/25 11:06 10/29/25 11:12 10/29/25 12:30 Temperature 97.6 F L 97.8 F Temperature Source Axillary Oral Pulse Rate 110 H 103 H Respiratory Rate 18 22 H Respiratory Effort Normal Non-Labored Respiratory Pattern Normal Blood Pressure 93/54 L 147/103 H Blood Pressure Mean 67 117 Pulse Ox 99 97 Oxygen Delivery Method Room Air Room Air 10/29/25 12:45 10/29/25 12:50 Temperature Temperature Source Pulse Rate 101 H Respiratory Rate 22 H Respiratory Effort Respiratory Pattern Blood Pressure 130/90 H 131/103 H Blood Pressure Mean 103 112 Pulse Ox 97 Oxygen Delivery Method Room Air Positive well nourished and well developed General Appearance ED: well developed and NAD HEENT Reports TM's clear and moist mucous membranes normocephalic and atraumatic; Negative for trauma or tenderness Tympanic Membrane ED: Yes TM's clear Eyes PERRL and EOMs intact bilaterally General Eye ED: Negative for pale conjunctiva or scleral icterus Neck no lymphadenopathy, supple and no JVD General: Negative for tenderness Chest Wall inspection of chest normal and palpation of chest normal Chest: Negative for tenderness Resp normal respiratory effort and clear to auscultation bilaterally Effort and Inspection: Negative for respiratory distress or pain with movement Auscultation: Negative for rhonchi, wheezes or diminished lung sounds Cardio regular rate, S1 normal heart sound, S2 normal heart sound and no murmurs; Negative for regular rhythm Rate: other Rhythm: abnormal rhythm irregularly irregular Peripheral Pulses: pulses 2+ throughout GI normal to inspection, nondistended, normoactive bowel sounds, soft to palpation, non-tender, non-distended and no masses Back/Spine no CVA tenderness and no thoracic nor lumbar tenderness Extremity normal to inspection General Extremety ED: Negative for edema General Extremity: Negative for edema Neuro oriented x3, CN's II-XII intact bilaterally, no sensory deficits noted and gait normal Sensorium / Orientation: awake, alert, oriented to person, oriented to place and oriented to time Motor Exam: strength 5/5 throughout and strength abnormal Psych mental status grossly normal Skin no rashes or lesions noted and no wounds MDM MDM MDM Narrative Medical decision making narrative: Patient patient presents with failure to thrive and not doing well since being discharged back to home from halfway. Currently on Eliquis. Last dialysis was 2 days ago. Woke up with some bleeding fingers today. CBC with differential obtained showed a white count of 15.3 with hemoglobin 10.8 and platelet count of 159. Chemistries unremarkable other than a potassium of 5.5 however this was a hemolyzed specimen. BUN was 49 and creatinine 4.78. Troponin elevated 91 however she has chronic renal failure and this is chronic. Her lactate level was elevated 7.7. Urinalysis positive for UTI. Patient had blood cultures ordered and urine culture sent. She was started on Rocephin 1 g IV. She was given normal saline fluid boluses. Case discussed with hospitalist will evaluate patient for admission. Lab Data Attestation: I reviewed the patient's lab results. Labs: Laboratory Results - last 24 hr 10/29/25 10/29/25 11:30 11:50 WBC 15.3 H RBC 4.05 L Hgb 10.8 L Hct 33.5 L MCV 82.7 MCH 26.7 L MCHC 32.2 RDW Std Deviation 56.4 H RDW Coeff of Leif 20.4 H Plt Count 159 MPV 10.7 Immature Gran % (Auto) 2.400 H Neut % (Auto) 89.0 H Lymph % (Auto) 4.8 L [place] % (Auto) 3.7 Eos % (Auto) 0.0 Baso % (Auto) 0.1 Absolute Neuts (auto) 13.6 H Absolute Lymphs (auto) 0.74 L Nucleated RBC % 5.1 H Differential Comment SCANNED Hypochromasia 2+ Anisocytosis 2+ Target Cells 2+ Sodium 137 Potassium 5.5 H Chloride 97 L Carbon Dioxide 20.3 L Anion Gap 20 H BUN 49 H Creatinine 4.78 H Estim Creat Clear Calc 9.65 L* Est GFR (MDRD) Non-Af 9 L BUN/Creatinine Ratio 10.2 Glucose 117 H Lactic Acid 7.7 H* Calcium 8.1 Troponin T High Sens 91 H* D Urine Color Yellow Urine Clarity Turbid Urine pH 7.0 Ur Specific [place] 1.015 Urine Protein 500 H Urine Glucose (UA) Normal Urine Ketones Negative Urine Occult Blood 150 H Urine Nitrite Positive H Urine Bilirubin 1 H Urine Urobilinogen Normal Ur Leukocyte Esterase 500 H Urine RBC 0 SEEN Urine WBC >100 SEEN Ur Squamous Epith Cells 0-5 SEEN Urine Bacteria 4+ Urine Mucus 0 SEEN Radiography Diagnostic Testing: Clinical Impression(s) from Imaging Studies Chest X-Ray 10/29/25 12:14 IMPRESSION: Right sided central venous catheter seen, with tip projecting over the distal SVC. Right upper quadrant abdominal surgical clips are noted. Right hemidiaphragm elevation is again noted. Previous left basilar airspace disease has mostly improved. Questionable small left pleural effusion. A mild to moderate-sized right pleural fluid collection is now seen, increased from the prior examination of 06/28/2025. Compressive atelectasis is seen adjacent; cannot entirely exclude the presence of right basilar pneumonitis, however. No pneumothorax is seen. The cardiomediastinal silhouette is unchanged. Asymmetric left glenohumeral joint degenerative changes are noted. At least mild degenerative changes of the spine are seen. No acute osseous change is identified. Reading Location: [place] [id number] 1 view chest x-ray obtained interpreted myself as no evidence of infiltrate or pneumothorax or acute disease process. Radiology in agreement. EKG Initial EKG: Attestation: I personally reviewed and interpreted this EKG as follows: Comments: Atrial fibrillation with rate of [address] changes Critical Care Time Critical care time (excluding procedures): 30-74 minutes, Including time spent:, Discussing w/Patient &/or Family/Export Sales Assistant, Discussing w/Consultants, Arranging Admission or Transfer, Performing Direct Patient Care at Bedside and - (30 minutes) Discharge Plan Dx/Rx/DC Orders Clinical Impression: Weakness, Failure to thrive (child), UTI (urinary tract infection), Sepsis Disposition Disposition: Acute Care Hospital [facility] Discharge Date/Time: 10/29/25 15:30
[2025-10-29 11:43] LABS: Mucous, Urine 0 SEEN /hpf (<or=2+); Red Blood Cells-Urine 0 SEEN /hpf (0-5)
[2025-10-29] MEDS: 0.9% Normal Saline (500mL Bag) 500 ML 1000 ML IV (11:57)
--- NOTE | 2025-10-29 12:07 | ED.RN ---
LAC site reddened prior to IV insertion
[2025-10-29 12:08] LABS: Hematocrit 33.5 % (37-47); Hemoglobin 10.8 g/dL (12.0-15.0); Immature Granulocytes Count 0.370 X10^3/uL (0.0-0.0); Mean Corp Hgb Conc 32.2 g/dL (32-36); Mean Corpuscular Volume 82.7 fL (81-99); Mean Platelet Vol. 10.7 fl (6.2-12.0); NRBC Flagged by Analyzer 5.1 % (0-5); POSITIVE COUNT YES; POSITIVE MORPHOLOGY YES; Platelet Count 159 K/mm3 (150-450); RBC Distribution Width CV 20.4 % (11.6-14.6); RBC Distribution Width SD 56.4 fl (35.1-43.9); Red Blood Count 4.05 M/mm3 (4.2-5.4); White Blood Count 15.3 K/mm3 (4.4-11.0)
[2025-10-29 12:13] LABS: Differential Indicated SCAN CRITERIA MET
--- NOTE | 2025-10-29 12:14 | RAD_ITS ---
PROCEDURE: CHEST 1 VIEW (PORTABLE) 10/29/2025 REASON FOR EXAM: DYSPNEA TECHNIQUE: Frontal view of the chest. COMPARISON: Chest x-ray of 06/28/2025 RAD/Chest 1 View (Portable) IMPRESSION: Right sided central venous catheter seen, with tip projecting over the distal S VC. Right upper quadrant abdominal surgical clips are noted. Right hemidiaphragm elevation is again noted. Previous left basilar airspace disease has mostly improved. Questionable small left pleural effusion. A mild to moderate-sized right pleural fluid collection is now seen, increased from the prior examination of 06/28/2025. Compressive atelectasis is seen adjacent; cannot entirely exclude the presence of right basilar pneumonitis, however. No pneumothorax is seen. The cardiomediastinal silhouette is unchanged. Asymmetric left glenohumeral joint degenerative changes are noted. At least mi ld degenerative changes of the spine are seen. No acute osseous change is identified. Reading Location: [place] [id number]
[2025-10-29 12:16] LABS: Color, Urine Yellow (Yellow); Glucose, Dipstick Normal (Normal); Ketone-Dipstick Negative (Negative); Leukocyte Esterase-Dipstick 500 /ul (Negative); Nitrite-Dipstick Positive (Negative); Occult Blood-Urine 150 /ul (Negative); Protein-Dipstick 500 mg/dl (Negative); Specific Gravity, Urine 1.015 (1.002-1.030)
[2025-10-29 12:19] LABS: Urine Bilirubin Dipstick 1 mg/dL (Negative)
[2025-10-29 12:22] LABS: Squamous Epithelial Cells - UA 0-5 SEEN /hpf (5-10)
[2025-10-29] MEDS: 0.9% Normal Saline (1000mL) 1,000 ML 999 ML IV (12:41)
[2025-10-29 12:43] LABS: Anion Gap 20 (5-15); BUN 49 mg/dL (4-19); BUN/Creat Ratio 10.2 RATIO (10-20); Calcium,Total 8.1 mg/dL (7.6-11.0); Carbon Dioxide 20.3 mmol/L (21.0-32.0); Chloride 97 mmol/L (98-108); Estimated Creatinine Clearance 9.65 ml/min (50-250); Glucose 117 mg/dL (70-99); Potassium 5.5 mmol/L (3.3-5.1); Troponin T High Sensitivity 91 ng/L (<=14)
[2025-10-29 13:05] LABS: Anisocytosis 2+; Differential Comment SCANNED; Hypochromasia 2+; Target Cells 2+
--- NOTE | 2025-10-29 13:19 | PCM.HP.STD ---
HPI - General General Date of Admission: 10/29/25 Date of Service: 10/29/25 Chief Complaint: Generalized weakness and persistent bleeding from hands HPI Narrative MISAEL MEDINA, is a 75 F who presents with multiple comorbidities including end-stage renal disease currently on hemodialysis Tuesdays and Saturdays who was discharged from a halfway facility to home 2 weeks prior to her admission. Patient reports increasing fatigue since being discharged. Patient also did notice increasing bleeding from both hands. Patient is on systemic anticoagulation for paroxysmal A-fib and as per patient's patient hands and the tips of her fingers have been cracking. Patient in addition also picks. Workup in the ED did reveal presence of acute cystitis. Patient was also found to have lactic acidosis consistent with sepsis. Patient however did not receive 30 cc/kg of IV fluid given her underlying history of end-stage renal disease [facility] Medical History Aortic valve stenosis Congestive heart failure Hypertension Type 2 diabetes mellitus with diabetic polyneuropathy Pulmonary hypertension LV dysfunction MRSA (methicillin resistant staph aureus) culture positive Hypothyroidism Osteoporosis Morbid obesity with BMI of 45.0-49.9, adult Wears glasses Post-menopausal Thyroid disease Diabetes Uses wheelchair Ambulates with cane Arthritis High cholesterol Back pain TIA (transient ischemic attack) Dietary restriction Non-smoker History of pain when walking History of transesophageal echocardiography (DESTIN) Cardiology follow-up encounter Diabetes Home Medications ?Medication ?Instructions ?Recorded ?Last Taken ?Type atorvastatin 10 mg tablet 10 mg PO QHS cholesterol 08/31/22 10/28/25 History apixaban 2.5 mg tablet (Eliquis) 2.5 mg PO BID 10/29/25 10/28/25 History doxycycline hyclate 100 mg capsule 100 mg PO Q12H 10/29/25 10/28/25 History ergocalciferol (vitamin D2) 1,250 1,250 mcg PO QWEEK 10/29/25 10/28/25 History mcg (50,000 unit) capsule levothyroxine 112 mcg tablet 112 mcg PO DAILY 10/29/25 10/28/25 History mirtazapine 7.5 mg tablet 7.5 mg PO DAILY 10/29/25 Unknown History ondansetron HCl 4 mg tablet 4 mg PO Q8H PRN PRN nausea and 10/29/25 Unknown History vomiting vitamin B complex-vitamin C-folic 1 tab PO DAILY 10/29/25 10/28/25 History acid 0.8 mg tablet (Rajani-Balbir) Allergy/AdvReac Type Severity Reaction Status Date / Time No Known Allergies Allergy Verified 10/29/25 11:10 Family History Mother Hypertension Father Heart disease Surgical History Hx of colonoscopy Hx of cholecystectomy H/O: hysterectomy Social History household members: spouse Smoking Status: Never smoker alcohol intake: never substance use type: does not use caffeine: No ROS ROS Narrative GENERAL: Generalized weakness HEENT: denies headache, sinus congestion, RESPIRATORY: denies cough, sputum production, CARDIAC: denies chest pain, palpitations, orthopnea, PND GASTROINTESTINAL: denies abdominal pain, nausea, vomiting, melena, GENITOURINARY: denies dysuria, urgency, frequency, heamaturia EXTREMITY: denies swelling MUSCULOSKELETAL: denies current joint pain or tenderness NEUROLOGIC: denies focal numbness, weakness, tingling HEMATOLOGIC: Easy bruising from both time INTEGUMENT: denies rashes PSYCHIATRIC: denies suicidal or homicidal ideation Vital Signs Vital Signs Vital Signs: 10/29/25 11:06 10/29/25 11:12 10/29/25 12:45 Temperature 97.6 F L Temperature Source Axillary Pulse Rate 110 H Respiratory Rate 18 Respiratory Effort Normal Non-Labored Respiratory Pattern Normal Blood Pressure 93/54 L 130/90 H Blood Pressure Mean 67 103 Pulse Ox 99 Oxygen Delivery Method Room Air 10/29/25 12:50 Temperature Temperature Source Pulse Rate 101 H Respiratory Rate 22 H Respiratory Effort Respiratory Pattern Blood Pressure 131/103 H Blood Pressure Mean 112 Pulse Ox 97 Oxygen Delivery Method Room Air Weight Weight: 82 kg Body Mass Index (BMI) 35.3 Physical Exam Narrative GENERAL: Patient appears ill looking HEENT: Atraumatic; normocephalic EYES; Anicteric, Normal Conjunctiva NECK; supple, normal thyroid, RESPIRATORY: Diminished to auscultation CARDIOVASCULAR: Regular S1-S2 tachycardia GI: soft, normoactive bowel sounds, : No Renal angle tenderness; EXTREMITIES: Chronic wounds involving both lower extremities, cracked palms with bleeding from both hands MUSCULOSKELETAL: no muscle wasting NEURO: Awake; no lateralizing signs. SKIN: As documented above PSYCH; Flat affect Results Lab / Micro Data 10/30/25 05:00 10/30/25 05:00 Labs: Laboratory Results - last 24 hr 10/29/25 11:30: Urine Color Yellow, Urine Clarity Turbid, Urine pH 7.0, Ur Specific [place] 1.015, Urine Protein 500 H, Urine Glucose (UA) Normal, Urine Ketones Negative, Urine Occult Blood 150 H, Urine Nitrite Positive H, Urine Bilirubin 1 H, Urine Urobilinogen Normal, Ur Leukocyte Esterase 500 H, Urine RBC 0 SEEN, Urine WBC >100 SEEN, Ur Squamous Epith Cells 0-5 SEEN, Urine Bacteria 4+, Urine Mucus 0 SEEN 10/29/25 11:50: WBC 15.3 H, RBC 4.05 L, Hgb 10.8 L, Hct 33.5 L, MCV 82.7, MCH 26.7 L, MCHC 32.2, RDW Std Deviation 56.4 H, RDW Coeff of Leif 20.4 H, Plt Count 159, MPV 10.7, Immature Gran % (Auto) 2.400 H, Neut % (Auto) 89.0 H, Lymph % (Auto) 4.8 L, [place] % (Auto) 3.7, Eos % (Auto) 0.0, Baso % (Auto) 0.1, Absolute Neuts (auto) 13.6 H, Absolute Lymphs (auto) 0.74 L, Nucleated RBC % 5.1 H, Differential Comment SCANNED, Hypochromasia 2+, Anisocytosis 2+, Target Cells 2+, Sodium 137, Potassium 5.5 H, Chloride 97 L, Carbon Dioxide 20.3 L, Anion Gap 20 H, BUN 49 H, Creatinine 4.78 H, Estim Creat Clear Calc 9.65 L*, Est GFR (MDRD) Non-Af 9 L, BUN/Creatinine Ratio 10.2, Glucose 117 H, Lactic Acid 7.7 H*, Calcium 8.1, Troponin T High Sens 91 H* D Imaging Radiology Impression Chest X-Ray 10/29/25 12:14 IMPRESSION: Right sided central venous catheter seen, with tip projecting over the distal SVC. Right upper quadrant abdominal surgical clips are noted. Right hemidiaphragm elevation is again noted. Previous left basilar airspace disease has mostly improved. Questionable small left pleural effusion. A mild to moderate-sized right pleural fluid collection is now seen, increased from the prior examination of 06/28/2025. Compressive atelectasis is seen adjacent; cannot entirely exclude the presence of right basilar pneumonitis, however. No pneumothorax is seen. The cardiomediastinal silhouette is unchanged. Asymmetric left glenohumeral joint degenerative changes are noted. At least mild degenerative changes of the spine are seen. No acute osseous change is identified. Reading Location: [place] [id number] Assessment & Plan Assessment/Plan (1) UTI (urinary tract infection): (2) Sepsis: (3) Failure to thrive (child): PLAN: Plan Patient is a 75-year-old lady with multiple comorbidities presented with progressive generalized weakness. An assessment of sepsis secondary to acute cystitis made admitted to the intensive care unit for further management 1. Sepsis ? Secondary to acute complicated cystitis. Urine and blood cultures were sent from the ED patient started on ceftriaxone. Patient admitted to the intensive care unit. Patient did not receive IV fluid 30 cc/kg given her underlying history of end-stage renal disease at significant risk for fluid overload. 2. Lactic acidosis ? Secondary to sepsis management as discussed above 3. End-stage renal disease Patient is on hemodialysis on Tuesdays and Saturdays. Consult placed to nephrology for dialysis 4. Elevated troponin ? Secondary to demand ischemia from oxygen As a result of patient ESRD. Patient appears to have chronically elevated troponin 5. Bleeding from both hands ? This is secondary to use of systemic anticoagulation as well as dry palms and patient picking. Patient apixaban was held on admission 6. Paroxysmal atrial fibrillation ? Rate controlled on systemic anticoagulation with apixaban held given above recent 7. Hyperkalemia ? Mild admitted to telemetry for continuous monitoring. Plan is to manage through dialysis 8. Hypothyroidism ? Patient is on levothyroxine home dose continued 9. Hypertension ? Blood pressure controlled, home medications continued with dose adjustment as needed 10. Class II with BMI of 35.3 ? Complicating care weight loss advised 11. Dyslipidemia ?Patient is on statin therapy, continued at home dose 12. DVT prophylaxis ? On apixaban held given above reasons CODE STATUS; full code discussed with patient and Sepsis Attestation Sepsis Alert: Yes Sepsis Attestation: Agree w/Sepsis Date exam was performed: 10/29/25 Time exam was performed: 13:59 Possible Source of Sepsis: Genitourinary Sepsis Organ Dysfunction Criteria Present: Creatinine > 2.0 mg/dL and Lactic Acid > 2 mmol/L Fluid Resuscitation Fluid resuscitation indicated?: Yes Fluid Resuscitation ordered: Fluids not indicated (Patient has end-stage renal disease and is currently maintaining adequate blood pressure with systolic in the 120) Reason for lesser fluid bolus:: Concern for fluid overload Sepsis Note Sepsis Attestation: Sepsis re-evaluation was performed Charges/Coding Visit Charges Inpatient E&M: 58091 Init Hosp L3
--- NOTE | 2025-10-29 13:57 | ED.RN ---
Blood pressures fluctuating on monitor, lower readings do not appear accurate. Manual blood pressure obtained 130/90
--- NOTE | 2025-10-29 14:00 | ED.RN ---
Straight cathed for urine sample, small amount obtained. Pt states she doesn't make much urine.
--- NOTE | 2025-10-29 14:05 | EX.PCM.CONCC ---
Assessment & Plan Assessment/Plan (1) Sepsis: (2) UTI (urinary tract infection): PLAN: Plan RECOMMENDATIONS: 1. Continue empiric antimicrobials. 2. Reflex lactate per protocol. 3. Encourage incentive spirometer use and mobilize patient as tolerated. 4. PT/OT evaluation. IMPRESSIONS: 1. Sepsis The patient presented with sepsis due to possible urinary tract source of infection with acute sepsis related organ dysfunction as evidenced by lactic acidemia. The patient did not receive full sepsis related fluid resuscitation due to her underlying renal insufficiency and her hemodynamic stability. The patient has been initiated on antimicrobial therapy. Recommend follow-up reflex lactate, per protocol. 2. Troponin elevation Most likely secondary to demand ischemia in the setting of #1. Consider obtaining echocardiogram for follow-up. 3. Heart failure with reduced ejection fraction/atrial fibrillation/end-stage renal disease on hemodialysis/hypothyroidism/obesity Complicates care, management, recovery and prognosis. Recommend nephrology consultation to assist with hemodialysis needs. This note was generated with [employer] dictation software. It may contain incorrect words, spelling, and punctuation that were not noted in checking the note before signing. HPI Consult Data Date of Consult: 10/29/25 HPI Narrative Reason for Consultation: Sepsis HPI Narrative: The patient is a 75-year-old female, with a history as outlined below, who presented to the emergency department on October 29 with generalized weakness and bleeding, dry cracked hands. The patient has a history of end-stage renal disease on hemodialysis. In addition, she carries a diagnosis of atrial fibrillation, for which she is systemically anticoagulated on Eliquis. The patient's reported that she began to experience bleeding from her hands, which are chronically dry and cracked and exacerbated by the fact that she is on Eliquis. On presentation to the emergency department, the patient was noted to be afebrile but was mildly tachycardic and tachypneic. Laboratory evaluation revealed a white blood cell count of 15,000. Hemoglobin and platelet count were stable. Chemistry profile was notable for a potassium of 5.5 with a creatinine of 9.65 and lactate of 7.7. Troponin was increased at 91. Urinalysis was positive for nitrites, leukocyte esterase and 4+ urine bacteria. The patient was ordered to receive a small amount of IV fluids and was started on antimicrobials. Given her diagnosis of sepsis, the patient was admitted to the medical intensive care unit for further management. [facility] Medical History Aortic valve stenosis Congestive heart failure Hypertension Type 2 diabetes mellitus with diabetic polyneuropathy Pulmonary hypertension LV dysfunction MRSA (methicillin resistant staph aureus) culture positive Hypothyroidism Osteoporosis Morbid obesity with BMI of 45.0-49.9, adult Wears glasses Post-menopausal Thyroid disease Diabetes Uses wheelchair Ambulates with cane Arthritis High cholesterol Back pain TIA (transient ischemic attack) Dietary restriction Non-smoker History of pain when walking History of transesophageal echocardiography (DESTIN) Cardiology follow-up encounter Diabetes Home Medications ?Medication ?Instructions ?Recorded ?Last Taken ?Type atorvastatin 10 mg tablet 10 mg PO QHS cholesterol 08/31/22 10/28/25 History apixaban 2.5 mg tablet (Eliquis) 2.5 mg PO BID 10/29/25 10/28/25 History doxycycline hyclate 100 mg capsule 100 mg PO Q12H 10/29/25 10/28/25 History ergocalciferol (vitamin D2) 1,250 1,250 mcg PO QWEEK 10/29/25 10/28/25 History mcg (50,000 unit) capsule levothyroxine 112 mcg tablet 112 mcg PO DAILY 10/29/25 10/28/25 History mirtazapine 7.5 mg tablet 7.5 mg PO DAILY 10/29/25 Unknown History ondansetron HCl 4 mg tablet 4 mg PO Q8H PRN PRN nausea and 10/29/25 Unknown History vomiting vitamin B complex-vitamin C-folic 1 tab PO DAILY 10/29/25 10/28/25 History acid 0.8 mg tablet (Rajani-Balbir) Allergy/AdvReac Type Severity Reaction Status Date / Time No Known Allergies Allergy Verified 10/29/25 11:10 Family History Mother Hypertension Father Heart disease Surgical History Hx of colonoscopy Hx of cholecystectomy H/O: hysterectomy Social History household members: spouse Smoking Status: Never smoker alcohol intake: never substance use type: does not use caffeine: No ROS ROS Narrative 10 systems were reviewed with pertinent positives as noted in the HPI above. Physical Exam Const alert, oriented x3 and no apparent distress Constitutional Narrative: is present at the bedside. HEENT normocephalic and head/scalp atraumatic Eyes PERRL, EOMs intact bilaterally and conjunctivae normal Neck supple General: trachea midline Chest inspection of chest normal Resp normal respiratory effort Auscultation: Negative for rales, rhonchi or wheezes Cardio S1 normal heart sound and S2 normal heart sound Rate: tachycardic Rhythm: abnormal rhythm GI soft to palpation and non-tender Extremity no clubbing, cyanosis or edema Skin Skin Narrative: Dry, cracked bleeding hands. Neuro CN's II-XII intact bilaterally, moves all extremities and no focal motor deficits Psych Mood & Affect: flat affect Lab / Micro Data 10/29/25 11:50 10/29/25 11:50 Labs: Laboratory Results - last 24 hr 10/29/25 11:30: Urine Color Yellow, Urine Clarity Turbid, Urine pH 7.0, Ur Specific [place] 1.015, Urine Protein 500 H, Urine Glucose (UA) Normal, Urine Ketones Negative, Urine Occult Blood 150 H, Urine Nitrite Positive H, Urine Bilirubin 1 H, Urine Urobilinogen Normal, Ur Leukocyte Esterase 500 H, Urine RBC 0 SEEN, Urine WBC >100 SEEN, Ur Squamous Epith Cells 0-5 SEEN, Urine Bacteria 4+, Urine Mucus 0 SEEN 10/29/25 11:50: WBC 15.3 H, RBC 4.05 L, Hgb 10.8 L, Hct 33.5 L, MCV 82.7, MCH 26.7 L, MCHC 32.2, RDW Std Deviation 56.4 H, RDW Coeff of Leif 20.4 H, Plt Count 159, MPV 10.7, Immature Gran % (Auto) 2.400 H, Neut % (Auto) 89.0 H, Lymph % (Auto) 4.8 L, [place] % (Auto) 3.7, Eos % (Auto) 0.0, Baso % (Auto) 0.1, Absolute Neuts (auto) 13.6 H, Absolute Lymphs (auto) 0.74 L, Nucleated RBC % 5.1 H, Differential Comment SCANNED, Hypochromasia 2+, Anisocytosis 2+, Target Cells 2+, Sodium 137, Potassium 5.5 H, Chloride 97 L, Carbon Dioxide 20.3 L, Anion Gap 20 H, BUN 49 H, Creatinine 4.78 H, Estim Creat Clear Calc 9.65 L*, Est GFR (MDRD) Non-Af 9 L, BUN/Creatinine Ratio 10.2, Glucose 117 H, Lactic Acid 7.7 H*, Calcium 8.1, Troponin T High Sens 91 H* D Imaging Radiology Impression Chest X-Ray 10/29/25 12:14 IMPRESSION: Right sided central venous catheter seen, with tip projecting over the distal SVC. Right upper quadrant abdominal surgical clips are noted. Right hemidiaphragm elevation is again noted. Previous left basilar airspace disease has mostly improved. Questionable small left pleural effusion. A mild to moderate-sized right pleural fluid collection is now seen, increased from the prior examination of 06/28/2025. Compressive atelectasis is seen adjacent; cannot entirely exclude the presence of right basilar pneumonitis, however. No pneumothorax is seen. The cardiomediastinal silhouette is unchanged. Asymmetric left glenohumeral joint degenerative changes are noted. At least mild degenerative changes of the spine are seen. No acute osseous change is identified. Reading Location: [place] [id number] Sepsis Attestation Sepsis Alert: Yes Sepsis Attestation: Agree w/Sepsis Date exam was performed: 10/29/25 Time exam was performed: 14:14 Possible Source of Sepsis: Genitourinary Sepsis Organ Dysfunction Criteria Present: Lactic Acid > 2 mmol/L Fluid Resuscitation Fluid Resuscitation ordered: Fluids not indicated Amount of fluid ordered: 1,500 Reason for lesser fluid bolus:: Concern for fluid overload, Heart failure and Renal Failure Charges/Coding Visit Charges Inpatient E&M: 57974 Init Hosp L2
--- NOTE | 2025-10-29 14:12 | CASEMGMT ---
Care Management Face to Face with patient for initial transition planning/care coordination assessment in the ED.? This song writer introduced self and role at [facility]. Patient alert and oriented. Patient willing to participate in assessment and is able to answer all questions appropriately.? Care providers, pharmacy, and demographics verified. Admitting Diagnosis: Weakness Other diagnosis history: ?CHF, hypertension, type 2 diabetes, hypothyroidism, osteoporosis PCP: ?[facility]: Nephrology through [facility] ([place]) Preferred Pharmacy: [facility] [place] Insurance: ?[employer] Prescription Benefit: ?yes Living Will/HPOA: ?patient has both LW and HPOA completed and on file LNOK: ? Living Arrangements: ?patient lives with in one story home, 4 steps to enter.? Patient on dialysis, [facility] T, Th, Sat.? Reports being independent with ADLs and IADLs.? Transportation: ? transports patient where needed DME: [employer] with supplies, cane, wheelchair, wheeled walker, walk in shower with shower chair and grab bars, over toilet bars.? HHC: ?[facility] SNF/Rehab: ?[facility] Resources: [facility] History: ?Denies Patient goals: ?Discharge plans uncertain at this time. Disposition Plan: admission to acute; RN CM/SW to follow for discharge planning needs that may arise. Bushra Renae, [employer], [employer]PER
--- NOTE | 2025-10-29 15:09 | ED.RN ---
report called to [facility]. PT's informed pt will be going to ICU 4
[2025-10-29 15:44] LABS: Troponin T High Sens 2 HR 96 ng/L (<=14)
[2025-10-29 15:56] LABS: Reflex Lactate? Y
--- NOTE | 2025-10-29 18:39 | PCM.HOSP.N ---
Hospitalist Note Advised nursing to apply compressive bandages to individual digits in order to slow and stop bleeding from for fissures in dry cracked skin. Compressive bandages to be maintained for at least 1 hour; then remove dressings and apply Aquaphor topical as ordered. Redressed with Kerlix and light compression bandage.
[2025-10-29 20:06] LABS: Reflex Lactate? Y
[2025-10-29] MEDS: Mineral Oil/Petrolatum Cr 1.75oz Bottle 1 APPLIC TOPICAL (23:10)
[2025-10-30] VITALS (31 sets, daily range): BP systolic 68–153; BP diastolic 43–126; PULSE 56–139; RESP 14–28; TEMP 36–36.6; O2SAT 92–100; BMI 33.9; BMI 33.8
[2025-10-30] MEDS: 0.9% Saline Lock 10 ML Syringe IV ×3 (01:41→08:10)
[2025-10-30 05:15] LABS: Differential Indicated SCAN CRITERIA MET; Hematocrit 31.2 % (37-47); Hemoglobin 10.2 g/dL (12.0-15.0); Immature Granulocytes Count 0.150 X10^3/uL (0.0-0.0); Mean Corp Hgb Conc 32.7 g/dL (32-36); Mean Corpuscular Volume 82.8 fL (81-99); Mean Platelet Vol. 11.5 fl (6.2-12.0); NRBC Flagged by Analyzer 7.3 % (0-5); POSITIVE COUNT YES; POSITIVE MORPHOLOGY YES; Platelet Count 166 K/mm3 (150-450); RBC Distribution Width CV 20.7 % (11.6-14.6); RBC Distribution Width SD 56.2 fl (35.1-43.9); Red Blood Count 3.77 M/mm3 (4.2-5.4); White Blood Count 16.3 K/mm3 (4.4-11.0)
[2025-10-30 05:33] LABS: Magnesium 1.8 mg/dL (1.5-2.2)
[2025-10-30 05:39] LABS: Anion Gap 22 (5-15); BUN 54 mg/dL (4-19); BUN/Creat Ratio 10.8 RATIO (10-20); Calcium,Total 7.9 mg/dL (7.6-11.0); Carbon Dioxide 19.9 mmol/L (21.0-32.0); Chloride 100 mmol/L (98-108); Estimated Creatinine Clearance 8.71 ml/min (50-250); Glucose 88 mg/dL (70-99); Potassium 4.3 mmol/L (3.3-5.1)
[2025-10-30 05:43] LABS: Anisocytosis 2+; Target Cells 2+
--- NOTE | 2025-10-30 07:10 | NURSING ---
change of shift rounds
--- NOTE | 2025-10-30 07:12 | PN.HOSP_ITS ---
Reason for Visit Chief Complaint: Generalized weakness and persistent bleeding from hands Subjective Subjective Patient seen undergoing dialysis. Patient lactic acid levels did trend down with treatment. Plan is for patient to be transferred from the ICU to progressive care unit Objective Data Objective Data Vital Signs: Vital Signs Temp Pulse Resp BP Pulse Ox O2 Del Method FiO2 97.6 F L 103 H 16 145/110 H 92 Room Air 40 10/30/25 04:00 10/30/25 07:00 10/30/25 07:00 10/30/25 07:00 10/30/25 07:00 10/30/25 07:00 10/30/25 02:00 Oxygen Delivery Method Room Air Weight: 78.4 kg Body Mass Index (BMI) 33.9 Intake & Output: Intake and Output for Last 24 Hours 10/28/25 10/29/25 10/30/25 23:59 23:59 23:59 Intake Total 1550 / 1550 Balance 1550 / 1550 Lab / Micro Data 10/30/25 05:00 10/30/25 05:00 Labs: Laboratory Results - last 24 hr 10/29/25 11:30: Urine Color Yellow, Urine Clarity Turbid, Urine pH 7.0, Ur Specific [place] 1.015, Urine Protein 500 H, Urine Glucose (UA) Normal, Urine Ketones Negative, Urine Occult Blood 150 H, Urine Nitrite Positive H, Urine Bilirubin 1 H, Urine Urobilinogen Normal, Ur Leukocyte Esterase 500 H, Urine RBC 0 SEEN, Urine WBC >100 SEEN, Ur Squamous Epith Cells 0-5 SEEN, Urine Bacteria 4+, Urine Mucus 0 SEEN 10/29/25 11:50: WBC 15.3 H, RBC 4.05 L, Hgb 10.8 L, Hct 33.5 L, MCV 82.7, MCH 26.7 L, MCHC 32.2, RDW Std Deviation 56.4 H, RDW Coeff of Leif 20.4 H, Plt Count 159, MPV 10.7, Immature Gran % (Auto) 2.400 H, Neut % (Auto) 89.0 H, Lymph % (Auto) 4.8 L, [place] % (Auto) 3.7, Eos % (Auto) 0.0, Baso % (Auto) 0.1, Absolute Neuts (auto) 13.6 H, Absolute Lymphs (auto) 0.74 L, Nucleated RBC % 5.1 H, Differential Comment SCANNED, Hypochromasia 2+, Anisocytosis 2+, Target Cells 2+, Sodium 137, Potassium 5.5 H, Chloride 97 L, Carbon Dioxide 20.3 L, Anion Gap 20 H, BUN 49 H, Creatinine 4.78 H, Estim Creat Clear Calc 9.65 L*, Est GFR (MDRD) Non-Af 9 L, BUN/Creatinine Ratio 10.2, Glucose 117 H, Lactic Acid 7.7 H*, Calcium 8.1, Troponin T High Sens 91 H* D 10/29/25 15:00: Troponin T Hi Sens 2 Hr 96 H* 10/29/25 16:05: Lactic Acid 4.7 H* 10/29/25 16:05: Lactic Acid Cancelled 10/29/25 21:20: Lactic Acid 4.9 H* 10/30/25 05:00: WBC 16.3 H, RBC 3.77 L, Hgb 10.2 L, Hct 31.2 L, MCV 82.8, MCH 27.1, MCHC 32.7, RDW Std Deviation 56.2 H, RDW Coeff of Leif 20.7 H, Plt Count 166, MPV 11.5, Immature Gran % (Auto) 0.900, Neut % (Auto) 88.0 H, Lymph % (Auto) 6.9 L, [place] % (Auto) 4.2, Eos % (Auto) 0.0, Baso % (Auto) 0.0, Absolute Neuts (auto) 14.3 H, Absolute Lymphs (auto) 1.12, Nucleated RBC % 7.3 H, Differential Comment TNP, Anisocytosis 2+, Target Cells 2+, Sodium 141, Potassium 4.3, Chloride 100, Carbon Dioxide 19.9 L, Anion Gap 22 H, BUN 54 H, C reatinine 5.00 H, Estim Creat Clear Calc 8.71 L*, Est GFR (MDRD) Non-Af 9 L, BUN/Creatinine Ratio 10.8, Glucose 88, Calcium 7.9, Magnesium 1.8 Radiography Diagnostic Testing: Radiology Impression Chest X-Ray 10/29/25 12:14 IMPRESSION: Right sided central venous catheter seen, with tip projecting over the distal SVC. Right upper quadrant abdominal surgical clips are noted. Right hemidiaphragm elevation is again noted. Previous left basilar airspace disease has mostly improved. Questionable small left pleural effusion. A mild to moderate-sized right pleural fluid collection is now seen, increased from the prior examination of 06/28/2025. Compressive atelectasis is seen adjacent; cannot entirely exclude the presence of right basilar pneumonitis, however. No pneumothorax is seen. The cardiomediastinal silhouette is unchanged. Asymmetric left glenohumeral joint degenerative changes are noted. At least mild degenerative changes of the spine are seen. No acute osseous change is identified. Reading Location: [place] [id number] Physical Exam Narrative GENERAL: Patient appears ill looking HEENT: Atraumatic; normocephalic EYES; Anicteric, Normal Conjunctiva NECK; supple, normal thyroid, RESPIRATORY: Diminished to auscultation CARDIOVASCULAR: Regular S1-S2 tachycardia GI: soft, normoactive bowel sounds, : No Renal angle tenderness; EXTREMITIES: Chronic wounds involving both lower extremities, cracked palms with bleeding from both hands MUSCULOSKELETAL: no muscle wasting NEURO: Awake; no lateralizing signs. SKIN: As documented above PSYCH; Flat affect Assessment & Plan Assessment/Plan (1) UTI (urinary tract infection): (2) Sepsis: (3) Failure to thrive (child): PLAN: Plan Patient is a 75-year-old lady with multiple comorbidities presented with progressive generalized weakness. An assessment of sepsis secondary to acute cystitis made admitted to the intensive care unit for further management 1. Sepsis ? Secondary to acute complicated cystitis. Urine and blood cultures were sent from the ED patient started on ceftriaxone. Patient admitted to the intensive care unit. Patient did not receive IV fluid 30 cc/kg given her underlying history of end-stage renal disease at significant risk for fluid overload. ? Patient lactic acid levels did trend down with treatment. Plan is for patient to be transferred from ICU to PCU 2. Lactic acidosis ? Secondary to sepsis management as discussed above 3. End-stage renal disease Patient is on hemodialysis on Tuesdays and Saturdays. Consult placed to nephrology for dialysis 4. Elevated troponin ? Secondary to demand ischemia from oxygen As a result of patient ESRD. Patient appears to have chronically elevated troponin 5. Bleeding from both hands ? This is secondary to use of systemic anticoagulation as well as dry palms and patient picking. Patient apixaban was held on admission ? 10/30/2025; patient had barrier cream applied in place and gloves to prevent patient from PICC 6. Paroxysmal atrial fibrillation ? Rate controlled on systemic anticoagulation with apixaban held given above recent 7. Hyperkalemia ? Mild admitted to telemetry for continuous monitoring. Plan is to manage through dialysis 8. Hypothyroidism ? Patient is on levothyroxine home dose continued 9. Hypertension ? Blood pressure controlled, home medications continued with dose adjustment as needed 10. Class II with BMI of 35.3 ? Complicating care weight loss advised 11. Dyslipidemia ?Patient is on statin therapy, continued at home dose 12. DVT prophylaxis ? On apixaban held given above reasons CODE STATUS; full code discussed with patient and Charges/Coding Visit Charges Inpatient E&M: 25795 Init Hosp L2
[2025-10-30] MEDS: 0.9% Normal Saline 1,000 ML IV.SOLN. 1000 ML OPERA.SITE (08:09)
[2025-10-30] MEDS: PureFlow B 2K Dialysis Soln 1 BAG 6 BAG PF (08:09)
--- NOTE | 2025-10-30 09:15 | NURSING ---
[address] Dr, [place], BREAKING MACHINE OPERATOR, RT, RPh, OT, dietary, CM and [employer] all present
--- NOTE | 2025-10-30 10:28 | CASEMGMT ---
SHON DILL DC Planning f/u Noted that the pt goes to OP HD in [place]. Per ICU rounds, the hospitalist states that the pt is wanting to go to a SNF at the time of DC. TC to the HD Center and notified of pt's admission and that the pt may be discharging to a SNF once medically ready. CM to follow. SHON DILL to the pt room at this time. Pt was offered a list of local in-network SNFs. However, pt declines the need and states that her FOC is [facility] as she has been there in the past. Questioned the pt about transport to the OP HD center from the SNF. Pt states that her will be able to drive her. Pt denies further questions or concerns. At this time, PT eval is pending. DPA updated. Elver GRACIA RN, CM
--- NOTE | 2025-10-30 11:25 | PN.CC_ITS ---
Objective Data Objective Data Vital Signs: Vital Signs Last response 3 Temperature 36.4 C L 10/30/25 08:00 Temperature Source Temporal 10/30/25 08:00 Pulse Rate 102 H 10/30/25 11:15 Pulse Strength Weak (1+) 10/30/25 10:00 Respiratory Rate 16 10/30/25 11:15 Respiratory Effort Normal, Non-Labored 10/30/25 07:55 Respiratory Depth Normal 10/30/25 07:55 Respiratory Pattern Normal 10/30/25 07:55 Blood Pressure 125/105 H 10/30/25 11:15 Blood Pressure Mean 111 10/30/25 11:15 Blood Pressure Source Monitor 10/30/25 11:15 Blood Pressure Position Semi-Fowlers 10/30/25 11:15 Blood Pressure Location Left Forearm 10/30/25 11:15 Pulse Ox 92 10/30/25 07:00 Oxygen Delivery Method Room Air 10/30/25 11:15 Fraction of Inspired Oxygen (FIO2) 40 10/30/25 02:00 I&O: I&O Last 24 Hours 3 10/29/25 10/29/25 10/30/25 11:59 23:59 11:59 Intake Total 1550 / 1550 Balance 1550 / 1550 I&O: Total Stay 3 10/29/25 11:04 thru 10/30/25 07:55 Intake Total 1550 Balance 1550 Current Meds Ordered / Administered: Current meds ordered / Administered 3 Generic Name Dose Route Start Last Admin Trade Name Freq PRN Reason Stop Dose Admin Acetaminophen 650 mg 10/29/25 22:00 10/29/25 23:08 Acetaminophen 325 Mg Tablet PO 650 mg Q6H PRN PRN Administration Pain 1-10 Or Fever>100.7 Albuterol Sulfate 2.5 mg 10/29/25 15:49 Albuterol 2.5 Mg/3 Ml Vial.Neb. INHALATION Q2H PRN PRN SOB &/OR WHEEZING Atorvastatin Calcium 10 mg 10/29/25 22:00 10/29/25 23:07 Atorvastatin Calcium 10 Mg Tablet PO 10 mg QHS YOLI Administration Hemodialysis Solution 6 bag 10/30/25 07:45 10/30/25 08:09 Pureflow B 2k Dialysis Soln 1 Bag PF 10/30/25 19:39 6 bag UD YOLI Administration Protocol Heparin Sodium (Porcine) 1,000 - 3,000 units 10/30/25 07:37 10/30/25 11:14 Heparin 10,000 Units/10 Ml Vial IV 10/30/25 19:37 1,800 units X1 PRN Administration HD catheter closing Ceftriaxone Sodium 1 gm in 50 mls @ 100 mls/hr 10/30/25 10:00 Rocephin IV 11/06/25 10:01 Q24 YOLI Sodium Chloride 250 mls @ 15 mls/hr 10/29/25 16:21 IV .[id number] PRN Saline Flush Sodium Chloride 250 mls @ 15 mls/hr 10/29/25 16:21 IV .[id number] PRN Additional IVPB Infusion Levothyroxine Sodium 112 mcg 10/30/25 06:00 10/30/25 06:15 Levothyroxine 112 Mcg Tablet PO 112 mcg DAILY@0600 YOLI Administration Multi-Ingredient Ointment 1 applic 10/29/25 18:33 10/29/25 23:10 Mineral Oil/Petrolatum Cr 1.75oz Bottle TOPICAL 1 applic PRN PRN Administration DRY SKIN Protocol Ondansetron HCl 4 mg 10/29/25 15:49 Ondansetron 4 Mg/2 Ml Vial IV Q8H PRN PRN NAUSEA/VOMITING Senna/Docusate Sodium 2 tablet 10/29/25 15:49 Senna/Docusate Sodium 1 Tablet PO BID PRN PRN Constipation Sodium Chloride 10 - 40 ml 10/29/25 16:21 10/30/25 08:10 0.9% Saline Lock 10 Ml Syringe IV 40 ml UD PRN Administration SALINE FLUSH Sodium Chloride 1,000 ml 10/30/25 07:40 10/30/25 08:09 0.9% Normal Saline 1,000 Ml Iv.Soln. OPERA.SITE 10/30/25 19:37 1,000 ml X1 YOLI Administration Sodium Chloride 200 ml 10/30/25 07:37 0.9% Normal Saline 1,000 Ml Iv.Soln. IV 10/30/25 19:37 X1 PRN to maintain SBP >90mmHg during Dialysis Lab / Micro Data 10/30/25 05:00 10/30/25 05:00 Labs: Laboratory Results - last 24 hr 10/29/25 11:30: Urine Color Yellow, Urine Clarity Turbid, Urine pH 7.0, Ur Specific [place] 1.015, Urine Protein 500 H, Urine Glucose (UA) Normal, Urine Ketones Negative, Urine Occult Blood 150 H, Urine Nitrite Positive H, Urine Bilirubin 1 H, Urine Urobilinogen Normal, Ur Leukocyte Esterase 500 H, Urine RBC 0 SEEN, Urine WBC >100 SEEN, Ur Squamous Epith Cells 0-5 SEEN, Urine Bacteria 4+, Urine Mucus 0 SEEN 10/29/25 11:50: WBC 15.3 H, RBC 4.05 L, Hgb 10.8 L, Hct 33.5 L, MCV 82.7, MCH 26.7 L, MCHC 32.2, RDW Std Deviation 56.4 H, RDW Coeff of Leif 20.4 H, Plt Count 159, MPV 10.7, Immature Gran % (Auto) 2.400 H, Neut % (Auto) 89.0 H, Lymph % (Auto) 4.8 L, [place] % (Auto) 3.7, Eos % (Auto) 0.0, Baso % (Auto) 0.1, Absolute Neuts (auto) 13.6 H, Absolute Lymphs (auto) 0.74 L, Nucleated RBC % 5.1 H, Differential Comment SCANNED, Hypochromasia 2+, Anisocytosis 2+, Target Cells 2+, Sodium 137, Potassium 5.5 H, Chloride 97 L, Carbon Dioxide 20.3 L, Anion Gap 20 H, BUN 49 H, Creatinine 4.78 H, Estim Creat Clear Calc 9.65 L*, Est GFR (MDRD) Non-Af 9 L, BUN/Creatinine Ratio 10.2, Glucose 117 H, Lactic Acid 7.7 H*, Calcium 8.1, Troponin T High Sens 91 H* D 10/29/25 15:00: Troponin T Hi Sens 2 Hr 96 H* 10/29/25 16:05: Lactic Acid 4.7 H* 10/29/25 16:05: Lactic Acid Cancelled 10/29/25 21:20: Lactic Acid 4.9 H* 10/30/25 05:00: WBC 16.3 H, RBC 3.77 L, Hgb 10.2 L, Hct 31.2 L, MCV 82.8, MCH 27.1, MCHC 32.7, RDW Std Deviation 56.2 H, RDW Coeff of Leif 20.7 H, Plt Count 166, MPV 11.5, Immature Gran % (Auto) 0.900, Neut % (Auto) 88.0 H, Lymph % (Auto) 6.9 L, [place] % (Auto) 4.2, Eos % (Auto) 0.0, Baso % (Auto) 0.0, Absolute Neuts (auto) 14.3 H, Absolute Lymphs (auto) 1.12, Nucleated RBC % 7.3 H, Differential Comment TNP, Anisocytosis 2+, Target Cells 2+, Sodium 141, Potassium 4.3, Chloride 100, Carbon Dioxide 19.9 L, Anion Gap 22 H, BUN 54 H, C reatinine 5.00 H, Estim Creat Clear Calc 8.71 L*, Est GFR (MDRD) Non-Af 9 L, BUN/Creatinine Ratio 10.8, Glucose 88, Calcium 7.9, Magnesium 1.8 Imaging Radiology Impression Chest X-Ray 10/29/25 12:14 IMPRESSION: Right sided central venous catheter seen, with tip projecting over the distal SVC. Right upper quadrant abdominal surgical clips are noted. Right hemidiaphragm elevation is again noted. Previous left basilar airspace disease has mostly improved. Questionable small left pleural effusion. A mild to moderate-sized right pleural fluid collection is now seen, increased from the prior examination of 06/28/2025. Compressive atelectasis is seen adjacent; cannot entirely exclude the presence of right basilar pneumonitis, however. No pneumothorax is seen. The cardiomediastinal silhouette is unchanged. Asymmetric left glenohumeral joint degenerative changes are noted. At least mild degenerative changes of the spine are seen. No acute osseous change is identified. Reading Location: [id number] Assessment and Plan . Assessment and plan: Overall improved Now off vasopressors CX pending - NGTD We are available as needed The entirety of this encounter was done via Telemedicine
--- NOTE | 2025-10-30 11:50 | CON.PCM.RE_ITS ---
Assessment & Plan Assessment/Plan (1) Sepsis: (2) ESRD (end stage renal disease): PLAN: On hemodialysis. Seen on dialysis today, see orders/flowsheets. Minimal fluid removal due to low blood pressure. Pressor requirements have improved. Lactic acidosis have improved as well. HPI Consult Data Date of Consult: 10/30/25 HPI Narrative Reason for Consultation: ESRD HPI Narrative: MISAEL MEDINA, is a 75 F who presents to the hospital with confusion. Nephrology on consultation in view of ESRD. She is known to us from outpatient dialysis clinic, ESRD on dialysis. Has a IJ tunneled dialysis catheter for access. Presented with altered mental status, being treated for sepsis, lactic acidosis, presumably urinary origin. She was on low-dose Levophed yesterday, pressor requirements have improved, seen on dialysis today. FOR[facility]LY [facility], [facility] Medical History Aortic valve stenosis Congestive heart failure Hypertension Type 2 diabetes mellitus with diabetic polyneuropathy Pulmonary hypertension LV dysfunction MRSA (methicillin resistant staph aureus) culture positive Hypothyroidism Osteoporosis Morbid obesity with BMI of 45.0-49.9, adult Wears glasses Post-menopausal Thyroid disease Diabetes Uses wheelchair Ambulates with cane Arthritis High cholesterol Back pain TIA (transient ischemic attack) Dietary restriction Non-smoker History of pain when walking History of transesophageal echocardiography (DESTIN) Cardiology follow-up encounter Diabetes Home Medications ?Medication ?Instructions ?Recorded ?Last Taken ?Type atorvastatin 10 mg tablet 10 mg PO QHS cholesterol 10/28/25 History apixaban 2.5 mg tablet (Eliquis) 2.5 mg PO BID 5 10/28/25 History doxycycline hyclate 100 mg capsule 100 mg PO Q12H 10/1510/28/25 History ergocalciferol (vitamin D2) 1,250 1,250 mcg PO QWEEK 1 12/30/24 10/28/25 History mcg (50,000 unit) capsule levothyroxine 112 mcg tablet 112 mcg PO DAILY 10/29/25 10/28/25 History mirtazapine 7.5 mg tablet 7.5 mg PO DAILY 10/29/25 Unk nown History ondansetron HCl 4 mg tablet 4 mg PO Q8H PRN PRN nausea and 10/29/25 Unknown History vomiting vitamin B complex-vitamin C-folic 1 tab PO DAILY 10/2910/28/25 History acid 0.8 mg tablet (Rajani-Balbir) Allergy/AdvReac Type Severity Reaction Status Date / Time No Known Allergies Allergy Verified 10/29/25 11:10 Family History Mother Hypertension Father Heart disease Surgical History Hx of colonoscopy Hx of cholecystectomy H/O: hysterectomy Social History household members: spouse Smoking Status: Never smoker alcohol intake: never substance use type: does not use caffeine: No ROS ROS Narrative Negative except above Physical Exam Narrative Alert awake oriented x 3 no obvious distress no pallor no icterus no JVD s1s2 no murmurs lungs clear abdomen soft no organomegaly Lab / Micro Data 10/30/25 05:00 10/30/25 05:00 Labs: Laboratory Results - last 24 hr 10/29/25 11:30: Urine Color Yellow, Urine Clarity Turbid, Urine pH 7.0, Ur Specific [place] 1.015, Urine Protein 500 H, Urine Glucose (UA) Normal, Urine Ketones Negative, Urine Occult Blood 150 H, Urine Nitrite Positive H, Urine Bilirubin 1 H, Urine Urobilinogen Normal, Ur Leukocyte Esterase 500 H, Urine RBC 0 SEEN, Urine WBC >100 SEEN, Ur Squamous Epith Cells 0-5 SEEN, Urine Bacteria 4+, Urine Mucus 0 SEEN 10/29/25 11:50: WBC 15.3 H, RBC 4.05 L, Hgb 10.8 L, Hct 33.5 L, MCV 82.7, MCH 26.7 L, MCHC 32.2, RDW Std Deviation 56.4 H, RDW Coeff of Leif 20.4 H, Plt Count 159, MPV 10.7, Immature Gran % (Auto) 2.400 H, Neut % (Auto) 89.0 H, Lymph % (Auto) 4.8 L, [place] % (Auto) 3.7, Eos % (Auto) 0.0, Baso % (Auto) 0.1, Absolute Neuts (auto) 13.6 H, Absolute Lymphs (auto) 0.74 L, Nucleated RBC % 5.1 H, Differential Comment SCANNED, Hypochromasia 2+, Anisocytosis 2+, Target Cells 2+, Sodium 137, Potassium 5.5 H, Chloride 97 L, Carbon Dioxide 20.3 L, Anion Gap 20 H, BUN 49 H, Creatinine 4.78 H, Estim Creat Clear Calc 9.65 L*, Est GFR (MDRD) Non-Af 9 L, BUN/Creatinine Ratio 10.2, Glucose 117 H, Lactic Acid 7.7 H*, Calcium 8.1, Troponin T High Sens 91 H* D 10/29/25 15:00: Troponin T Hi Sens 2 Hr 96 H* 10/29/25 16:05: Lactic Acid 4.7 H* 10/29/25 16:05: Lactic Acid Cancelled 10/29/25 21:20: Lactic Acid 4.9 H* 10/30/25 05:00: WBC 16.3 H, RBC 3.77 L, Hgb 10.2 L, Hct 31.2 L, MCV 82.8, MCH 27.1, MCHC 32.7, RDW Std Deviation 56.2 H, RDW Coeff of Leif 20.7 H, Plt Count 166, MPV 11.5, Immature Gran % (Auto) 0.900, Neut % (Auto) 88.0 H, Lymph % (Auto) 6.9 L, [place] % (Auto) 4.2, Eos % (Auto) 0.0, Baso % (Auto) 0.0, Absolute Neuts (auto) 14.3 H, Absolute Lymphs (auto) 1.12, Nucleated RBC % 7.3 H, Differential Comment TNP, Anisocytosis 2+, Target Cells 2+, Sodium 141, Potassium 4.3, Chloride 100, Carbon Dioxide 19.9 L, Anion Gap 22 H, BUN 54 H, C reatinine 5.00 H, Estim Creat Clear Calc 8.71 L*, Est GFR (MDRD) Non-Af 9 L, BUN/Creatinine Ratio 10.8, Glucose 88, Calcium 7.9, Magnesium 1.8 Imaging Radiology Impression Chest X-Ray 10/29/25 12:14 IMPRESSION: Right sided central venous catheter seen, with tip projecting over the distal SVC. Right upper quadrant abdominal surgical clips are noted. Right hemidiaphragm elevation is again noted. Previous left basilar airspace disease has mostly improved. Questionable small left pleural effusion. A mild to moderate-sized right pleural fluid collection is now seen, increased from the prior examination of 06/28/2025. Compressive atelectasis is seen adjacent; cannot entirely exclude the presence of right basilar pneumonitis, however. No pneumothorax is seen. The cardiomediastinal silhouette is unchanged. Asymmetric left glenohumeral joint degenerative changes are noted. At least mild degenerative changes of the spine are seen. No acute osseous change is identified. Reading Location: [place] [id number]
[2025-10-30] MEDS: 0.9% Normal Saline (250mL Bag) 250 ML 15 ML IV (15:45)
[2025-10-31] VITALS (8 sets, daily range): BP systolic 83–89; BP diastolic 49–66; PULSE 102–123; RESP 14–25; TEMP 36.4; O2SAT 91–95; BMI 34.4
[2025-10-31 05:58] LABS: Hematocrit 29.8 % (37-47); Hemoglobin 9.8 g/dL (12.0-15.0); Immature Granulocytes Count 0.110 X10^3/uL (0.0-0.0); Mean Corp Hgb Conc 32.9 g/dL (32-36); Mean Corpuscular Volume 81.9 fL (81-99); Mean Platelet Vol. 11.7 fl (6.2-12.0); NRBC Flagged by Analyzer 5.2 % (0-5); POSITIVE COUNT YES; POSITIVE MORPHOLOGY YES; Platelet Count 140 K/mm3 (150-450); RBC Distribution Width CV 21.2 % (11.6-14.6); RBC Distribution Width SD 56.5 fl (35.1-43.9); Red Blood Count 3.64 M/mm3 (4.2-5.4); White Blood Count 15.4 K/mm3 (4.4-11.0)
[2025-10-31 06:02] LABS: Differential Indicated SCAN CRITERIA MET
[2025-10-31 06:26] LABS: Anisocytosis 1+; Target Cells 1+
[2025-10-31 06:46] LABS: Anion Gap 15 (5-15); BUN 43 mg/dL (4-19); BUN/Creat Ratio 10.6 RATIO (10-20); Calcium,Total 8.1 mg/dL (7.6-11.0); Carbon Dioxide 23.6 mmol/L (21.0-32.0); Chloride 103 mmol/L (98-108); Estimated Creatinine Clearance 11.07 ml/min (50-250); Glucose 75 mg/dL (70-99); Potassium 3.8 mmol/L (3.3-5.1)
--- NOTE | 2025-10-31 07:14 | PCM.PN.HOSP ---
Reason for Visit Chief Complaint: Generalized weakness and persistent bleeding from hands Subjective Subjective Patient seen blood pressure continues to fluctuate. Patient blood cultures have so far remained negative to date. Patient bleeding from palms significantly down still has some cracks with active areas of bleeding Objective Data Objective Data Vital Signs: Vital Signs Temp Pulse Resp BP Pulse Ox O2 Del Method FiO2 97.6 F L 118 H 25 H 89/66 L 91 Room Air 40 10/30/25 20:00 10/31/25 04:00 10/31/25 01:00 10/31/25 01:00 10/31/25 01:00 10/31/25 06:00 10/30/25 02:00 Oxygen Delivery Method Room Air Weight: 79.9 kg Body Mass Index (BMI) 34.4 Intake & Output: Intake and Output for Last 24 Hours 10/29/25 10/30/25 10/31/25 23:59 23:59 23:59 Intake Total 1550 / 1550 264.5 / 264.5 Output Total 490 / 490 Balance 1550 / 1550 -225.5 / -225.5 Lab / Micro Data 10/31/25 05:47 10/31/25 05:47 Labs: Laboratory Results - last 24 hr 10/31/25 05:47: WBC 15.4 H, RBC 3.64 L, Hgb 9.8 L, Hct 29.8 L, MCV 81.9, MCH 26.9 L, MCHC 32.9, RDW Std Deviation 56.5 H, RDW Coeff of Leif 21.2 H, Plt Count 140 L, MPV 11.7, Immature Gran % (Auto) 0.700, Neut % (Auto) 86.9 H, Lymph % (Auto) 7.5 L, [place] % (Auto) 4.8, Eos % (Auto) 0.0, Baso % (Auto) 0.1, Absolute Neuts (auto) 13.4 H, Absolute Lymphs (auto) 1.15, Nucleated RBC % 5.2 H, Anisocytosis 1+, Target Cells 1+, Sodium 141, Potassium 3.8, Chloride 103, Carbon Dioxide 23.6, Anion Gap 15, BUN 43 H, Creatinine 4.06 H, Estim Creat Clear Calc 11.07 L, Est GFR (MDRD) Non-Af 11 L, BUN/Creatinine Ratio 10.6, Glucose 75, Calcium 8.1 Physical Exam Narrative GENERAL: Patient appears ill looking HEENT: Atraumatic; normocephalic EYES; Anicteric, Normal Conjunctiva NECK; supple, normal thyroid, RESPIRATORY: Diminished to auscultation CARDIOVASCULAR: Regular S1-S2 tachycardia GI: soft, normoactive bowel sounds, : No Renal angle tenderness; EXTREMITIES: Chronic wounds involving both lower extremities, cracked palms with bleeding from both hands MUSCULOSKELETAL: no muscle wasting NEURO: Awake; no lateralizing signs. SKIN: As documented above PSYCH; Flat affect Assessment & Plan Assessment/Plan (1) UTI (urinary tract infection): (2) Sepsis: (3) Failure to thrive (child): PLAN: Plan Patient is a 75-year-old lady with multiple comorbidities presented with progressive generalized weakness. An assessment of sepsis secondary to acute cystitis made admitted to the intensive care unit for further management 1. Sepsis ? Secondary to acute complicated cystitis. Urine and blood cultures were sent from the ED patient started on ceftriaxone. Patient admitted to the intensive care unit. Patient did not receive IV fluid 30 cc/kg given her underlying history of end-stage renal disease at significant risk for fluid overload. ? 10/30/2025 patient lactic acid levels did trend down with treatment. Plan is for patient to be transferred from ICU to PCU ? 10/31/2025; patient WBC count remains elevated. Culture still pending. 2. Lactic acidosis ? Secondary to sepsis management as discussed above 3. End-stage renal disease Patient is on hemodialysis on Tuesdays and Saturdays. Consult placed to nephrology for dialysis 4. Elevated troponin ? Secondary to demand ischemia from oxygen As a result of patient ESRD. Patient appears to have chronically elevated troponin 5. Bleeding from both hands ? This is secondary to use of systemic anticoagulation as well as dry palms and patient picking. Patient apixaban was held on admission ? 10/30/2025; patient had barrier cream applied in place and gloves to prevent patient from PICC 10/31/2025; bleeding from hands did improve with application of barrier cream and patient been placing blocks 6. Paroxysmal atrial fibrillation ? Rate controlled on systemic anticoagulation with apixaban held given above recent ? 10/31/2025; patient heart rate remains labile. Systemic anticoagulation on hold 7. Hyperkalemia ? Mild admitted to telemetry for continuous monitoring. Plan is to manage through dialysis 8. Hypothyroidism ? Patient is on levothyroxine home dose continued 9. Hypertension ? Blood pressure controlled, home medications continued with dose adjustment as needed 10. Class II with BMI of 35.3 ? Complicating care weight loss advised 11. Dyslipidemia ?Patient is on statin therapy, continued at home dose 12. DVT prophylaxis ? On apixaban held given above reasons CODE STATUS; full code discussed with patient and Charges/Coding Visit Charges Inpatient E&M: 61962 Subs Hosp L2
[2025-10-31] MEDS: Mineral Oil/Petrolatum Cr 1.75oz Bottle 1 APPLIC TOPICAL (09:38)
--- NOTE | 2025-10-31 09:56 | CASEMGMT ---
Addendum entered by Yeimi Drake 10/31/25 16:28: [facility] declined d/t no bed availability. RN CM updated. Addendum entered by Yeimi Drake 10/31/25 14:18: [facility] referral has not been viewed yet. 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 Original Note: Discharge Planning Referral sent via [facility] to [facility]. Yeimi Drake DC Planning Asst.
--- NOTE | 2025-10-31 11:19 | WOUNDNOTE ---
Was asked by nursing to assess bilateral hands. when patient was admitted, her hands were cracked and bleeding profusely. nursing has been applying Aquaphor as ordered and placing gloves on hands. pt now with some denuded skin to the tips of the fingers from the moisture. no bleeding noted. there is a larger cracked area to the left pointer finger. gently washed hands and pat dry. placed small amount of Aquaphor and then placed dry gauze over the cracked area and placed a bandaid to hold the gauze in place. tape did not stick well. will monitor. will have nursing keep the gloved off for now and since there is no further bleeding and skin is now denuded. will monitor. see wound photos.
--- NOTE | 2025-10-31 12:40 | WOUNDNOTE ---
wound photo: left hand
--- NOTE | 2025-10-31 12:41 | WOUNDNOTE ---
wound photo: right hand
[2025-10-31] MEDS: Lidocaine 5% Patch 1 PATCH TOPICAL (13:44)
--- NOTE | 2025-10-31 14:13 | PCM.PN.REN ---
Subjective Subjective Overnight had some bleeding from hands. Blood pressure is still on the lower side. Objective Data Objective Data Vital Signs: Vital Signs Temp Pulse Resp BP Pulse Ox O2 Del Method FiO2 97.6 F L 102 H 14 88/49 L 93 Room Air 40 10/31/25 08:32 10/31/25 08:32 10/31/25 08:32 10/31/25 08:32 10/31/25 08:32 10/31/25 08:32 10/30/25 02:00 Oxygen Delivery Method Room Air Weight: 79.9 kg Body Mass Index (BMI) 34.4 Intake & Output: Intake and Output for Last 24 Hours 10/29/25 10/30/25 10/31/25 23:59 23:59 23:59 Intake Total 1550 / 1550 264.5 / 264.5 50 / 50 Output Total 490 / 490 Balance 1550 / 1550 -225.5 / -225.5 50 / 50 Lab / Micro Data 10/31/25 05:47 10/31/25 05:47 Labs: Laboratory Results - last 24 hr 10/31/25 05:47: WBC 15.4 H, RBC 3.64 L, Hgb 9.8 L, Hct 29.8 L, MCV 81.9, MCH 26.9 L, MCHC 32.9, RDW Std Deviation 56.5 H, RDW Coeff of Leif 21.2 H, Plt Count 140 L, MPV 11.7, Immature Gran % (Auto) 0.700, Neut % (Auto) 86.9 H, Lymph % (Auto) 7.5 L, [place] % (Auto) 4.8, Eos % (Auto) 0.0, Baso % (Auto) 0.1, Absolute Neuts (auto) 13.4 H, Absolute Lymphs (auto) 1.15, Nucleated RBC % 5.2 H, Anisocytosis 1+, Target Cells 1+, Sodium 141, Potassium 3.8, Chloride 103, Carbon Dioxide 23.6, Anion Gap 15, BUN 43 H, Creatinine 4.06 H, Estim Creat Clear Calc 11.07 L, Est GFR (MDRD) Non-Af 11 L, BUN/Creatinine Ratio 10.6, Glucose 75, Calcium 8.1 Physical Exam Narrative Alert awake oriented x 3 no obvious distress no pallor no icterus no JVD s1s2 no murmurs lungs clear abdomen soft no organomegaly Assessment & Plan Assessment/Plan (1) Sepsis: (2) ESRD (end stage renal disease): PLAN: On hemodialysis. Last dialysis was 10/30/2025. Labs from today reviewed, potassium acceptable. Blood pressure is still on the lower side. Management as per primary.
[2025-11-01] VITALS (21 sets, daily range): BP systolic 71–143; BP diastolic 50–112; PULSE 86–149; RESP 14–26; TEMP 36.2–36.4; O2SAT 94–98; BMI 34.4; BMI 34.0
[2025-11-01 07:45] LABS: Hematocrit 29.9 % (37-47); Hemoglobin 9.8 g/dL (12.0-15.0); Immature Granulocytes Count 0.130 X10^3/uL (0.0-0.0); Mean Corp Hgb Conc 32.8 g/dL (32-36); Mean Corpuscular Volume 83.3 fL (81-99); Mean Platelet Vol. 11.1 fl (6.2-12.0); NRBC Flagged by Analyzer 4.5 % (0-5); POSITIVE MORPHOLOGY YES; Platelet Count 100 K/mm3 (150-450); RBC Distribution Width CV 21.9 % (11.6-14.6); RBC Distribution Width SD 59.6 fl (35.1-43.9); Red Blood Count 3.59 M/mm3 (4.2-5.4); White Blood Count 13.1 K/mm3 (4.4-11.0)
[2025-11-01 07:47] LABS: Differential Indicated SCAN CRITERIA MET
--- NOTE | 2025-11-01 07:50 | PCM.PN.HOSP ---
Reason for Visit Chief Complaint: Generalized weakness and persistent bleeding from hands Subjective Subjective Patient seen had a relatively uneventful night. Cultures have remained negative to date. Did call the lab so far no growth we will await final result prior to making a decision regarding discharge. WBC count however remains elevated Objective Data Objective Data Vital Signs: Vital Signs Temp Pulse Resp BP Pulse Ox O2 Del Method FiO2 97.6 F L 99 17 91/51 L 97 Room Air 40 10/31/25 21:00 11/01/25 06:30 11/01/25 06:30 11/01/25 06:30 11/01/25 06:54 11/01/25 06:54 10/30/25 02:00 Oxygen Delivery Method Room Air Weight: 79.9 kg Body Mass Index (BMI) 34.4 Intake & Output: Intake and Output for Last 24 Hours 10/30/25 10/31/25 11/01/25 23:59 23:59 23:59 Intake Total 264.5 / 264.5 430 / 430 Output Total 490 / 490 Balance -225.5 / -225.5 430 / 430 Lab / Micro Data 11/01/25 07:24 10/31/25 05:47 Labs: Laboratory Results - last 24 hr 11/01/25 07:24: WBC 13.1 H, RBC 3.59 L, Hgb 9.8 L, Hct 29.9 L, MCV 83.3, MCH 27.3, MCHC 32.8, RDW Std Deviation 59.6 H, RDW Coeff of Leif 21.9 H, Plt Count 100 L, MPV 11.1, Immature Gran % (Auto) 1.000 H, Neut % (Auto) 87.3 H, Lymph % (Auto) 7.8 L, [place] % (Auto) 3.7, Eos % (Auto) 0.1, Baso % (Auto) 0.1, Absolute Neuts (auto) 11.5 H, Absolute Lymphs (auto) 1.02, Nucleated RBC % 4.5 Physical Exam Narrative GENERAL: Patient appears ill looking HEENT: Atraumatic; normocephalic EYES; Anicteric, Normal Conjunctiva NECK; supple, normal thyroid, RESPIRATORY: Diminished to auscultation CARDIOVASCULAR: Regular S1-S2 tachycardia GI: soft, normoactive bowel sounds, : No Renal angle tenderness; EXTREMITIES: Chronic wounds involving both lower extremities, cracked palms with bleeding from both hands MUSCULOSKELETAL: no muscle wasting NEURO: Awake; no lateralizing signs. SKIN: As documented above PSYCH; Flat affect Assessment & Plan Assessment/Plan (1) UTI (urinary tract infection): (2) Sepsis: (3) Failure to thrive (child): PLAN: Plan Patient is a 75-year-old lady with multiple comorbidities presented with progressive generalized weakness. An assessment of sepsis secondary to acute cystitis made admitted to the intensive care unit for further management 1. Sepsis ? Secondary to acute complicated cystitis. Blood cultures were sent from the ED patient started on ceftriaxone. Patient admitted to the intensive care unit. Patient did not receive IV fluid 30 cc/kg given her underlying history of end-stage renal disease at significant risk for fluid overload. ? 10/30/2025 patient lactic acid levels did trend down with treatment. Plan is for patient to be transferred from ICU to PCU ? 10/31/2025; patient WBC count remains elevated. Culture still pending. ? 11/01/2025; patient culture still negative to date will await final result prior to patient being discharged 2. Lactic acidosis ? Secondary to sepsis management as discussed above 3. End-stage renal disease Patient is on hemodialysis on Tuesdays and Saturdays. Consult placed to nephrology for dialysis 4. Elevated troponin ? Secondary to demand ischemia from oxygen As a result of patient ESRD. Patient appears to have chronically elevated troponin 5. Bleeding from both hands ? This is secondary to use of systemic anticoagulation as well as dry palms and patient picking. Patient apixaban was held on admission ? 10/30/2025; patient had barrier cream applied in place and gloves to prevent patient from PICC 10/31/2025; bleeding from hands did improve with application of barrier cream and patient been placing blocks 6. Paroxysmal atrial fibrillation ? Rate controlled on systemic anticoagulation with apixaban held given above recent ? 10/31/2025; patient heart rate remains labile. Systemic anticoagulation on hold 7. Hyperkalemia ? Mild admitted to telemetry for continuous monitoring. Plan is to manage through dialysis 8. Hypothyroidism ? Patient is on levothyroxine home dose continued 9. Hypertension ? Blood pressure controlled, home medications continued with dose adjustment as needed 10. Class II with BMI of 35.3 ? Complicating care weight loss advised 11. Dyslipidemia ?Patient is on statin therapy, continued at home dose 12. DVT prophylaxis ? On apixaban held given above reasons CODE STATUS; full code discussed with patient and Charges/Coding Visit Charges Inpatient E&M: 23217 Subs Hosp L2
--- NOTE | 2025-11-01 08:08 | PCM.TXEXTCAR ---
Diet Diet Order/Speech Therapy: INPATIENT Hospital Diet / Speech Therapy Order(s) 10/29/25 15:49 Diet: Renal - General Food consistency:: Regular Liquid Consistency:: Regular/Thin Type of Dietary Supplement:: Cornell Diet Comments: Cornell with breakfast and dinner tray DC O2, CPAP, BIPAP needs Home O2 Discharge instructions: No Wound(s) Left great toe: Wound Type: Neuropathic/Diabetic Foot Ulcer Left second toe: Wound Type: Neuropathic/Diabetic Foot Ulcer Left outer calf: Wound Type: Stasis Ulcer Left knee: Wound Type: Stasis Ulcer multiple fingers, bilateral hands: Wound Type: cracked skin Right Mid mendoza: Wound Type: Stasis Ulcer Right Lateral mendoza: Wound Type: Stasis Ulcer coccyx: Wound Type: Pressure Injury Problem/Diagnosis (1) UTI (urinary tract infection): Status: Acute Code(s): N39.0 - Urinary tract infection, site not specified (2) Sepsis: Status: Acute Code(s): A41.9 - Sepsis, unspecified organism (3) Failure to thrive (child): Status: Acute Code(s): R62.51 - Failure to thrive (child) Plan Patient is a 75-year-old lady with multiple comorbidities presented with progressive generalized weakness. An assessment of sepsis secondary to acute cystitis made admitted to the intensive care unit for further management 1. Sepsis ? Secondary to acute complicated cystitis. Blood cultures were sent from the ED patient started on ceftriaxone. Patient admitted to the intensive care unit. Patient did not receive IV fluid 30 cc/kg given her underlying history of end-stage renal disease at significant risk for fluid overload. ? 10/30/2025 patient lactic acid levels did trend down with treatment. Plan is for patient to be transferred from ICU to PCU ? 10/31/2025; patient WBC count remains elevated. Culture still pending. ? 11/01/2025; patient culture still negative to date will await final result prior to patient being discharged 2. Lactic acidosis ? Secondary to sepsis management as discussed above 3. End-stage renal disease Patient is on hemodialysis on Tuesdays and Saturdays. Consult placed to nephrology for dialysis 4. Elevated troponin ? Secondary to demand ischemia from oxygen As a result of patient ESRD. Patient appears to have chronically elevated troponin 5. Bleeding from both hands ? This is secondary to use of systemic anticoagulation as well as dry palms and patient picking. Patient apixaban was held on admission ? 10/30/2025; patient had barrier cream applied in place and gloves to prevent patient from PICC 10/31/2025; bleeding from hands did improve with application of barrier cream and patient been placing blocks 6. Paroxysmal atrial fibrillation ? Rate controlled on systemic anticoagulation with apixaban held given above recent ? 10/31/2025; patient heart rate remains labile. Systemic anticoagulation on hold 7. Hyperkalemia ? Mild admitted to telemetry for continuous monitoring. Plan is to manage through dialysis 8. Hypothyroidism ? Patient is on levothyroxine home dose continued 9. Hypertension ? Blood pressure controlled, home medications continued with dose adjustment as needed 10. Class II with BMI of 35.3 ? Complicating care weight loss advised 11. Dyslipidemia ?Patient is on statin therapy, continued at home dose 12. DVT prophylaxis ? On apixaban held given above reasons CODE STATUS; full code discussed with patient and Allergies/Procedures Done in Hospital Allergies No Known Allergies Allergy (Verified 10/29/25 11:10) Type of Care/Length of Stay Estimated LOS: Convalescent Care Less Than 30 days Type of Care Needed: Skilled Rehab Potential: Good Prognosis: Good Additional Orders/Day of Discharge Day of Discharge: 11/01/25 Dietary and Speech Recommendations Dietitian Recommendations/Changes: Will continue renal general diet for now; monitor blood glucose and need to restrict carbohydrates; will defer for now. Will add Cornell BID with breakfast and dinner tray to support wound healing. Will add PO Nepro as needed once oral intake better established with meals. Discharge Plan Admission Admit Date/Time: 10/29/25 13:20 Attending Provider: Jad Herrera Primary Care Provider: Donal Castle Consulting Providers: Madhu Varela; Stephen Gaston; Christian Paez; Mark Mcfarland; Jad Sherman; Gina Crowder; Dwight Naylor; Yumiko Bowser; Lan Marcano; Silvia Meehan; Taj Frank; Onur Medina; Bambi Levy; Ronaldo Brownlee; Jorge Blair; Lenny Rodriguez; Silvia Kendrick; Tamika Mann; Houston Rendon; Tasha Stuart; Zander Alexander; Ryan Carrillo; Neil Moore; Vita Cox; Meme Browning; Ioana De Souza; Neil Saldana; Milton Rosen; Mulugeta Cooper; Kishore Patrick; Antonio Cabezas; Lg Marte; Clarence Goodwin; Vincent Santamaria; Ismael Wood; Rachel Coley; BebetoSamcali; Len Dial; Ronald Roberts; Yohan Tovar; Rob Bush; Ti Shoemaker; Lorraine Gupta Discharge Orders/Prescriptions Prescriptions: New acetaminophen 325 mg Tablet 650 mg PO Q6H PRN PRN (Reason: Pain 1-10 Or Fever>100.7) Qty: 0 0RF sennosides-docusate sodium [Stimulant Laxative Plus] 8.6-50 mg Tablet 2 tab PO BID PRN PRN (Reason: Constipation) Qty: 0 0RF midodrine 5 mg Tablet 10 mg PO TIDCM Qty: 0 0RF lidocaine 5 % Adhesive Patch,Medicated 1 patch topical DAILY Qty: 0 0RF Protocol: *Topical Application Instructions APPLICATION INSTRUCTIONS: hip Remove Patch 1 patch topical DAILY@2200 Qty: 0 0RF cefdinir 300 mg capsule 300 mg PO BID Qty: 10 0RF Continued atorvastatin 10 mg tablet 10 mg PO QHS Patient Comments: DOES NOT TAKE ON DYALISIS DAYS ondansetron HCl 4 mg tablet 4 mg PO Q8H PRN PRN (Reason: nausea and vomiting) levothyroxine 112 mcg tablet 112 mcg PO DAILY mirtazapine 7.5 mg tablet 7.5 mg PO DAILY Eliquis 2.5 mg tablet 2.5 mg PO BID Rajani-Balbir 0.8 mg tablet 1 tab PO DAILY ergocalciferol (vitamin D2) 1,250 mcg (50,000 unit) capsule 1,250 mcg PO QWEEK Discontinued doxycycline hyclate 100 mg capsule 100 mg PO Q12H Referrals / Follow Up: Tin,Chalon, MD [Primary Care Provider, Family Practice] Disposition Disposition (needs filled in before D/C Order can be placed): Group Home Facility
[2025-11-01] MEDS: PureFlow B 2K Dialysis Soln 1 BAG 6 BAG PF (08:16)
[2025-11-01] MEDS: 0.9% Normal Saline 1,000 ML IV.SOLN. 1000 ML OPERA.SITE (08:16)
--- NOTE | 2025-11-01 08:18 | PCM.DC.SUM ---
Providers Date of Admission: 10/29/25 Date of Discharge: 11/01/25 Primary Care Physician: Donal Castle MD Consultations 10/29/25 13:49 Consult: Arcgis Developer / Pulmonary Medicine Routine Consulting Provider: Intensivists/Pulmonary Med Reason for Consult: sepsis EMERGENT Consult: No Notified: Yes Date Notified: 10/29/25 Time Notified: 13:49 Method of Notification: Text 10/29/25 15:49 Consult: Nephrology Routine Consulting Provider: Lorraine Gupta Reason for Consult: ESRD EMERGENT Consult: No Notified: Yes Date Notified: 10/29/25 Time Notified: 16:37 Method of Notification: Answering Service 10/31/25 08:58 Consult: Onc/Wound/data deliverables manager Routine Comment: Reason for Consult:: mult open areas, hands Reason For Visit: SEPSIS Diagnosis Discharge Diagnosis (1) UTI (urinary tract infection): Status: Acute Code(s): N39.0 - Urinary tract infection, site not specified (2) Sepsis: Status: Acute Code(s): A41.9 - Sepsis, unspecified organism (3) Failure to thrive (child): Status: Acute Code(s): R62.51 - Failure to thrive (child) Plan Patient is a 75-year-old lady with multiple comorbidities presented with progressive generalized weakness. An assessment of sepsis secondary to acute cystitis made admitted to the intensive care unit for further management 1. Sepsis ? Secondary to acute complicated cystitis. Blood cultures were sent from the ED patient started on ceftriaxone. Patient admitted to the intensive care unit. Patient did not receive IV fluid 30 cc/kg given her underlying history of end-stage renal disease at significant risk for fluid overload. ? 10/30/2025 patient lactic acid levels did trend down with treatment. Plan is for patient to be transferred from ICU to PCU ? 10/31/2025; patient WBC count remains elevated. Culture still pending. ? 11/01/2025; patient culture still negative to date will await final result prior to patient being discharged ? Patient blood cultures came back positive with patient having responded to ceftriaxone decision was made to discharge patient on cefdinir for 5 days 2. Lactic acidosis ? Secondary to sepsis management as discussed above 3. End-stage renal disease Patient is on hemodialysis on Tuesdays and Saturdays. Consult placed to nephrology for dialysis 4. Elevated troponin ? Secondary to demand ischemia from oxygen As a result of patient ESRD. Patient appears to have chronically elevated troponin 5. Bleeding from both hands ? This is secondary to use of systemic anticoagulation as well as dry palms and patient picking. Patient apixaban was held on admission ? 10/30/2025; patient had barrier cream applied in place and gloves to prevent patient from PICC 10/31/2025; bleeding from hands did improve with application of barrier cream and patient been placing blocks 6. Paroxysmal atrial fibrillation ? Rate controlled on systemic anticoagulation with apixaban held given above recent ? 10/31/2025; patient heart rate remains labile. Systemic anticoagulation on hold 7. Hyperkalemia ? Mild admitted to telemetry for continuous monitoring. Plan is to manage through dialysis 8. Hypothyroidism ? Patient is on levothyroxine home dose continued 9. Hypertension ? Blood pressure controlled, home medications continued with dose adjustment as needed 10. Class II with BMI of 35.3 ? Complicating care weight loss advised 11. Dyslipidemia ?Patient is on statin therapy, continued at home dose 12. DVT prophylaxis ? On apixaban held given above reasons CODE STATUS; full code discussed with patient and Medications at Discharge Home Medications atorvastatin 10 mg tablet 10 mg PO QHS cholesterol 08/31/22 apixaban 2.5 mg tablet (Eliquis) 2.5 mg PO BID 10/29/25 ergocalciferol (vitamin D2) 1,250 mcg (50,000 unit) capsule 1,250 mcg PO QWEEK 10/29/25 levothyroxine 112 mcg tablet 112 mcg PO DAILY 10/29/25 mirtazapine 7.5 mg tablet 7.5 mg PO DAILY 10/29/25 ondansetron HCl 4 mg tablet 4 mg PO Q8H PRN PRN nausea and vomiting 10/29/25 vitamin B complex-vitamin C-folic acid 0.8 mg tablet (Rajani-Balbir) 1 tab PO DAILY 10/29/25 Remove Patch 1 patch topical DAILY@2199 ##0 11/01/25 acetaminophen 325 mg tablet 650 mg (2 x 325 mg) PO Q6H PRN PRN Pain 1-10 Or Fever>100.7 #0 tabs 11/01/25 cefdinir 300 mg capsule 300 mg PO BID #10 caps 11/01/25 lidocaine 5 % topical patch 1 patch topical DAILY #0 ea 11/01/25 midodrine 5 mg tablet 10 mg (2 x 5 mg) PO TIDCM #0 tabs 11/01/25 sennosides 8.6 mg-docusate sodium 50 mg tablet (Stimulant Laxative Plus) 2 tab PO BID PRN PRN Constipation #0 tabs 11/01/25 Hospital Course Summary of Care Provided Minutes Spent on Discharge: 32 Physical Exam Narrative GENERAL: Patient appears ill looking HEENT: Atraumatic; normocephalic EYES; Anicteric, Normal Conjunctiva NECK; supple, normal thyroid, RESPIRATORY: Diminished to auscultation CARDIOVASCULAR: Regular S1-S2 tachycardia GI: soft, normoactive bowel sounds, : No Renal angle tenderness; EXTREMITIES: Dry hands MUSCULOSKELETAL: no muscle wasting NEURO: Awake; no lateralizing signs. SKIN: As documented above PSYCH; Flat affect Weight / BMI Weight Weight: 79.9 kg Body Mass Index (BMI) 34.4 ABG / Lab / Microbiology Data 11/01/25 07:24 10/31/25 05:47 Laboratory: Laboratory Results - last 24 hr 11/01/25 07:24: WBC 13.1 H, RBC 3.59 L, Hgb 9.8 L, Hct 29.9 L, MCV 83.3, MCH 27.3, MCHC 32.8, RDW Std Deviation 59.6 H, RDW Coeff of Leif 21.9 H, Plt Count 100 L, MPV 11.1, Immature Gran % (Auto) 1.000 H, Neut % (Auto) 87.3 H, Lymph % (Auto) 7.8 L, [place] % (Auto) 3.7, Eos % (Auto) 0.1, Baso % (Auto) 0.1, Absolute Neuts (auto) 11.5 H, Absolute Lymphs (auto) 1.02, Nucleated RBC % 4.5 Microbiology: Microbiology 10/29/25 11:50 Blood Culture (Wb) - Anticubital Left Blood Culture - Preliminary No growth in 48 hours. 10/29/25 12:10 Blood Culture (Wb) - Anticubital Left Blood Culture - Preliminary No growth in 48 hours. D/C Instructions DC O2, CPAP, BIPAP Needs Home O2 Discharge instructions: No Patient's Goals Of Care - F/U Goal Hisotry Goal History: To get stronger and go back on Goals Reviewed Goals of care reviewed with patient: Yes - No change Meaningful Use Info Meaningful Use Meaningful Use Diagnoses (Choose all that apply): None applicable Discharge Plan Admission Admit Date/Time: 10/29/25 13:20 Attending Provider: Jad Herrera Primary Care Provider: Donal Castle Consulting Providers: Madhu Varela; Stephen Gaston; Christian Paez; Mark Mcfarland; Jad Sherman; Gina Crowder; Dwight Naylor; Yumiko Bowser; Lan Marcano; Silvia Meehan; Taj Frank; Onur Medina; Bambi Levy; Ronaldo Brownlee; Jorge Blair; Lenny Rodriguez; Silvia Kendrick; Tamika Mann; Houston Rendon; Tasha Stuart; Zander Alexander; Ryan Carrillo; Neil Moore; Vita Cox; Meme Browning; Ioana De Souza; Neil Saldana; Milton Rosen; Mulugeta Cooper; Kishore Patrick; Antonio Cabezas; Lg Marte; Brigitte Goodwinkhdeep; Vincent Santamaria; Ismael Wood; Rachel Coley; Trinh Tate; Len Dial; Ronald Roberts; Yohan Tovar; Rob Bush; Ti Shoemaker; Lorraine Gupta Discharge Orders/Prescriptions Prescriptions: New acetaminophen 325 mg Tablet 650 mg PO Q6H PRN PRN (Reason: Pain 1-10 Or Fever>100.7) Qty: 0 0RF sennosides-docusate sodium [Stimulant Laxative Plus] 8.6-50 mg Tablet 2 tab PO BID PRN PRN (Reason: Constipation) Qty: 0 0RF midodrine 5 mg Tablet 10 mg PO TIDCM Qty: 0 0RF lidocaine 5 % Adhesive Patch,Medicated 1 patch topical DAILY Qty: 0 0RF Protocol: *Topical Application Instructions APPLICATION INSTRUCTIONS: hip Remove Patch 1 patch topical DAILY@2200 Qty: 0 0RF cefdinir 300 mg capsule 300 mg PO BID Qty: 10 0RF Continued atorvastatin 10 mg tablet 10 mg PO QHS Patient Comments: DOES NOT TAKE ON DYALISIS DAYS ondansetron HCl 4 mg tablet 4 mg PO Q8H PRN PRN (Reason: nausea and vomiting) levothyroxine 112 mcg tablet 112 mcg PO DAILY mirtazapine 7.5 mg tablet 7.5 mg PO DAILY Eliquis 2.5 mg tablet 2.5 mg PO BID Rajani-Balbir 0.8 mg tablet 1 tab PO DAILY ergocalciferol (vitamin D2) 1,250 mcg (50,000 unit) capsule 1,250 mcg PO QWEEK Discontinued doxycycline hyclate 100 mg capsule 100 mg PO Q12H Referrals / Follow Up: Donal Castle MD [Primary Care Provider, Family Practice] Disposition Disposition (needs filled in before D/C Order can be placed): Residential Facility Charges/Coding Visit Charges Inpatient E&M: 17772 Disch Hosp >30min
[2025-11-01 08:21] LABS: Anion Gap 18 (5-15); BUN 52 mg/dL (4-19); BUN/Creat Ratio 10.4 RATIO (10-20); Calcium,Total 7.7 mg/dL (7.6-11.0); Carbon Dioxide 18.4 mmol/L (21.0-32.0); Chloride 101 mmol/L (98-108); Estimated Creatinine Clearance 9.13 ml/min (50-250); Glucose 101 mg/dL (70-99); Potassium 4.5 mmol/L (3.3-5.1)
[2025-11-01 08:22] LABS: Anisocytosis 2+
--- NOTE | 2025-11-01 09:00 | CASEMGMT ---
Discharge Planning A list of?SNF providers including quality and resource use data and consistent with the patient's preferred geographic region, medical needs, and insurance network was created in [facility] Guide.? This list was provided to the SW/RN ANIYAH. Yeimi Drake, Discharge Planning Asst.
[2025-11-01] MEDS: Lidocaine 5% Patch 1 PATCH TOPICAL (10:44)
--- NOTE | 2025-11-01 10:50 | CASEMGMT ---
[facility] as [facility] have no available beds. SW met with pt and introduced self and role of SW. SW explained that [facility] unable [facility]. A list of SNF providers including quality and resource use data and consistent with the patient?s preferred geographic region, medical needs, and insurance network were provided from the [facility]. SW spoke with pt regarding SNF placement and continued dialysis. After explanation, pt stating she would like to go to a [place] SNF so she can stay at [facility]. Pt Chair time is Wednesday, , Wednesday at 10am. During and chair time will be Wednesday, Wednesday, Wednesday at 10am. SW reviewed SNF list with pt. Pt states she would like her to make the decision. Phone call placed to pt spouse and SW explained the above. Mr. Pool states he will be in shortly and review the list with pt and make choices. SW explained to pt and that pt is medically ready for dc, therefore decision of SNF preferences needs to be made today. Pt and spouse understanding. SW will follow up after spouse arrives and has time to review list. SARAH Daugherty
--- NOTE | 2025-11-01 11:04 | PN.RENAL_ITS ---
Subjective Subjective Seen on dialysis today. No new complaints Objective Data Objective Data Vital Signs: Vital Signs Temp Pulse Resp BP Pulse Ox O2 Del Method FiO2 97.1 F L 124 H 19 H 132/101 H 97 Room Air 40 11/01/25 08:00 11/01/25 10:45 11/01/25 10:45 11/01/25 10:45 11/01/25 06:54 11/01/25 10:45 10/30/25 02:00 Oxygen Delivery Method Room Air Weight: 79.9 kg Body Mass Index (BMI) 34.4 Intake & Output: Intake and Output for Last 24 Hours 10/30/25 10/31/25 11/01/25 23:59 23:59 23:59 Intake Total 264.5 / 264.5 430 / 430 300 / 300 Output Total 490 / 490 Balance -225.5 / -225.5 430 / 430 300 / 300 Lab / Micro Data 11/01/25 07:24 11/01/25 07:24 Labs: Laboratory Results - last 24 hr 11/01/25 07:24: WBC 13.1 H, RBC 3.59 L, Hgb 9.8 L, Hct 29.9 L, MCV 83.3, MCH 27.3, MCHC 32.8, RDW Std Deviation 59.6 H, RDW Coeff of Leif 21.9 H, Plt Count 100 L, MPV 11.1, Immature Gran % (Auto) 1.000 H, Neut % (Auto) 87.3 H, Lymph % (Auto) 7.8 L, [place] % (Auto) 3.7, Eos % (Auto) 0.1, Baso % (Auto) 0.1, Absolute Neuts (auto) 11.5 H, Absolute Lymphs (auto) 1.02, Nucleated RBC % 4.5, Anisocytosis 2+, Sodium 138, Potassium 4.5, Chloride 101, Carbon Dioxide 18.4 L, Anion Gap 18 H, BUN 52 H, Creatinine 4.98 H, Estim Creat Clear Calc 9.13 L*, Est GFR (MDRD) Non-Af 9 L, BUN/Creatinine Ratio 10.4, Glucose 101 H, Calcium 7.7 Micro: Microbiology 10/29/25 11:50 Blood Culture (Wb) - Anticubital Left Blood Culture - Preliminary No growth in 48 hours. 10/29/25 12:10 Blood Culture (Wb) - Anticubital Left Blood Culture - Preliminary No growth in 48 hours. Physical Exam Narrative Alert awake oriented x 3 no obvious distress no pallor no icterus no JVD s1s2 no murmurs lungs clear abdomen soft no organomegaly Assessment & Plan Assessment/Plan (1) Sepsis: (2) ESRD (end stage renal disease): PLAN: Seen on dialysis today, asymptomatic. She says blood pressure readings have always been unreliable, does not matter where the blood pressure cuff is placed. Her pulse ox readings are also off. Most likely she has some form of vascular disease impairing blood pressure and pulse ox measurements. Has not been symptomatic at all. Blood pressure fluctuates widely. Able to remove some fluid today. Blood cultures are negative.
--- NOTE | 2025-11-01 11:28 | PCM.CONS.P ---
[facility] Medical History Hemodialysis catheter infection MRSA bacteremia Septic shock Acute kidney failure Aortic valve stenosis Congestive heart failure Hypertension Type 2 diabetes mellitus with diabetic polyneuropathy Pulmonary hypertension LV dysfunction MRSA (methicillin resistant staph aureus) culture positive Hypothyroidism Osteoporosis Morbid obesity with BMI of 45.0-49.9, adult Wears glasses Post-menopausal Thyroid disease Diabetes Uses wheelchair Ambulates with cane Arthritis High cholesterol Back pain TIA (transient ischemic attack) Dietary restriction Non-smoker History of pain when walking History of transesophageal echocardiography (DESTIN) Cardiology follow-up encounter Diabetes Home Medications ?Medication ?Instructions ?Recorded ?Last Taken ?Type atorvastatin 10 mg tablet 10 mg PO QHS cholesterol 08/31/22 10/28/25 History apixaban 2.5 mg tablet (Eliquis) 2.5 mg PO BID 10/29/25 10/28/25 History ergocalciferol (vitamin D2) 1,250 1,250 mcg PO QWEEK 10/29/25 10/28/25 History mcg (50,000 unit) capsule levothyroxine 112 mcg tablet 112 mcg PO DAILY 10/29/25 10/28/25 History mirtazapine 7.5 mg tablet 7.5 mg PO DAILY 10/29/25 Unknown History ondansetron HCl 4 mg tablet 4 mg PO Q8H PRN PRN nausea and 10/29/25 Unknown History vomiting vitamin B complex-vitamin C-folic 1 tab PO DAILY 10/29/25 10/28/25 History acid 0.8 mg tablet (Rajani-Balbir) Remove Patch 1 patch topical DAILY@2199 ##0 11/01/25 Unknown Rx acetaminophen 325 mg tablet 650 mg (2 x 325 mg) PO Q6H PRN PRN 11/01/25 Unknown Rx Pain 1-10 Or Fever>100.7 #0 tabs cefdinir 300 mg capsule 300 mg PO BID #10 caps 11/01/25 Unknown Rx lidocaine 5 % topical patch 1 patch topical DAILY #0 ea 11/01/25 Unknown Rx midodrine 5 mg tablet 10 mg (2 x 5 mg) PO TIDCM #0 tabs 11/01/25 Unknown Rx sennosides 8.6 mg-docusate sodium 2 tab PO BID PRN PRN Constipation 11/01/25 Unknown Rx 50 mg tablet (Stimulant Laxative #0 tabs Plus) Allergy/AdvReac Type Severity Reaction Status Date / Time No Known Allergies Allergy Verified 10/29/25 11:10 Family History Mother Hypertension Father Heart disease Surgical History Hx of colonoscopy Hx of cholecystectomy H/O: hysterectomy Social History household members: spouse Smoking Status: Never smoker alcohol intake: never substance use type: does not use caffeine: No ROS Constitutional Constitutional: Reports weakness Eyes Eyes: Reports systems reviewed and no addt'l complaints, except as documented ENT HEENT: Reports systems reviewed and no addt'l complaints, except as documented Cardiovascular Cardiovascular: Reports dizziness, fatigue and flutter in chest Respiratory/Chest Respiratory/Chest: Reports dyspnea Gastrointestinal Gastrointestinal: Reports none Genitourinary Genitourinary: Reports as per HPI and other Details: On dialysis Musculoskeletal Musculoskeletal: Reports extremity pain, joint pain, joint stiffness, limited range of motion and stiffness Integumentary Integumentary: Reports other Details: Bruising Neurologic Neurologic: Reports systems reviewed and no addt'l complaints, except as documented Psychiatric Psychiatric: Reports other Details: Anxiety with panic attacks Endocrine Endocrinology: Reports as per HPI Hematologic/Lymphatic Hematologic/Lymphatic: Reports as per HPI Allergic/Immunologic Allergic/Immunologic: Reports as per HPI Physical Exam Const alert and oriented x3 HEENT normocephalic Eyes PERRL Resp Effort and Inspection: tachypneic Auscultation: diminished lung sounds Cardio Rate: tachycardic Rhythm: abnormal rhythm GI normal to inspection, nondistended, normoactive bowel sounds Extremity General Extremity: edema Skin Skin Narrative: Bruising to bilateral arms, fingertips with areas that had been bleeding from cracking and picking Wounds: wounds noted Neuro CN's II-XII intact bilaterally Speech: speech normal Gait (Neuro): unable to assess gait Psych Mood & Affect: anxious Charges/Coding Palliative Care Palliative Care: [id number] New Pt Consult 80+ min HPI Current admission Current Code Status: DNR CCA with intubation. Time-limited trial. No trach or PEG. Associated Diagnosis: End-stage renal disease on anticoagulation related to A-fib. Consult Data Date of Consult: 11/01/25 Location of consult: ICU Reason for referral: goals of care/code status Referral source: Javier Palliative care diagnosis (Summary list): ESRD Palliative care services/treatment (Accepted, as consult): Accepted HPI Narrative HPI Narrative: PAIN ASSESSMENT patient is experiencing 10/10 pain. Location: [Left hip] Quality: [Sharp and throbbing] Severity/Quantity: [9/10] Timing/Frequency: [Happens the last hour of dialysis] Factors that make it better/worse: [Sometimes repositioning most the pain medications] Associated signs & symptoms: [Tachycardia] Prior to meeting with the patient bedside I reviewed labs, radiological studies and documentation. I then met with the patient and her at bedside. I introduced myself and the concept of palliative care which she voluntarily excepted our services. Patient is currently in the process of receiving dialysis. She is here last half an hour and is not tolerating it well. She states that she has been having difficulty tolerating her dialysis for the last several weeks. Patient states that she initiated that dialysis in February of this year. Patient's states they are they are considering home dialysis as it is becoming harder to get her to and from dialysis 3 days a week. She also is not tolerating her last hour of dialysis and states that she would do okay if she could only have 3 hours of dialysis with the 4 hours is too much for her. They are hopeful that she can start dialysis at home and can do it more frequently with less time for each event. We then discussed goals of care in which she states that she does want to continue dialysis and medical management. She states that she would be interested in palliative care outpatient for extra layer support and symptom management going forward. Patient and family both [facility] their outpatient palliative care services. Patient states that she has been spending more and more time in her chair at home as its become more difficult to ambulate. She does have a rollator and a walker both at home. Patient's has been pricing sit to stand devices to assist her more at home. We then addressed patient's CODE STATUS in which at the time of assessment the patient was a full code. I then fully explained the benefits versus burdens of CPR and intubation. Patient then decided to be DNR CCA okay to intubation. She states that she would only want a time-limited trial on the ventilator and would never want a trach and PEG. I did have the patient's sign the DNR form as the patient deferred to him because she was in so much pain. I reached out to Dr. Herrera to ask if he would be okay with a one-time dose of fentanyl 25 mcg for her 10 out of 10 pain. He did authorize a one-time dose of fentanyl. I did place the order with the parameter of administration with a soft solid greater than 105. Patient's latest BP was 64/44. I did update the nurse. I did remove the patient's blood pressure around several times to different locations in which the readings got progressively worse instead of better. Nursing updated. I did attempt to assist the patient with repositioning as well as deep breathing exercises. She is currently not due for her scheduled Tylenol. I did update social work lecturerSusie about the patient and 's request for outpatient palliative [facility] services with [facility]. Referral is being sent. I did send a warm handoff to [facility] providers. All questions the patient had were answered. per hospitalist: MISAEL MEDINA, is a 75 F who presents with multiple comorbidities including end-stage renal disease currently on hemodialysis Tuesdays and Saturdays who was discharged from a long-term facility to home 2 weeks prior to her admission. Patient reports increasing fatigue since being discharged. Patient also did notice increasing bleeding from both hands. Patient is on systemic anticoagulation for paroxysmal A-fib and as per patient's patient hands and the tips of her fingers have been cracking. Patient in addition also picks. Workup in the ED did reveal presence of acute cystitis. Patient was also found to have lactic acidosis consistent with sepsis. Patient however did not receive 30 cc/kg of IV fluid given her underlying history of end-stage renal disease This note was generated with [employer] dictation software. It may contain incorrect words, spelling, and punctuation that were not noted in checking the note before signing. Palliative Assessment Advanced Directive - Current Admission Advance Directive: Advance Directive ON ADMISSION - REFERENCE Do you have a Healthcare Yes 10/29/25 16:18 Living Will? Is a Healthcare Living Will Yes, It is scanned in 10/29/25 16:18 present in the medical record? Do you have a Healthcare Power Yes 10/29/25 16:18 of [employer]? Is a Healthcare Power of Yes, It is scanned in 10/29/25 16:18 [employer] present in the medical rec Do You Want Additional Declined 10/29/25 16:18 Information on Advanced Directives or Healthcare Proxy/DPOA comments: Has been Psychosocial/Spiritual Information Living situation/Marital status: Patient is and lives with her Geographic location: [facility] Supports: Family Taoism/Allison or spiritual preference: Caodaism Spiritual distress: Denies Prior functional status: Patient spends much of her time in the chair but does utilize a rollator Assistive devices at home: Rollator and walker Cultrual issues: None Information about the patient as a person: Patient states that she enjoys reading and watching television Symptoms Palliative performance scale: 60% Palliative prognostic index: 4.5 Dyspnea symptoms: Moderate Depression symptoms: Mild Fatigue symptoms: Moderate Weakness symptoms: Moderate Confusion symptoms: None Objective Data Objective Data Vital Signs: Vital Signs Temp Pulse Resp BP Pulse Ox O2 Del Method FiO2 97.1 F L 107 H 20 H 99/50 L 97 Room Air 40 11/01/25 08:00 11/01/25 11:15 11/01/25 11:15 11/01/25 11:15 11/01/25 06:54 11/01/25 11:15 10/30/25 02:00 Oxygen Delivery Method Room Air Weight: 176 lb 2.389 oz Body Mass Index (BMI) 34.4 Intake & Output: Intake and Output for Last 24 Hours 10/30/25 10/31/25 11/01/25 23:59 23:59 23:59 Intake Total 264.5 / 264.5 430 / 430 300 / 300 Output Total 490 / 490 Balance -225.5 / -225.5 430 / 430 300 / 300 Lab / Micro Data Attestation: I reviewed the patient's lab results. 11/01/25 07:24 11/01/25 07:24 Labs: Laboratory Results - last 24 hr 11/01/25 07:24: WBC 13.1 H, RBC 3.59 L, Hgb 9.8 L, Hct 29.9 L, MCV 83.3, MCH 27.3, MCHC 32.8, RDW Std Deviation 59.6 H, RDW Coeff of Leif 21.9 H, Plt Count 100 L, MPV 11.1, Immature Gran % (Auto) 1.000 H, Neut % (Auto) 87.3 H, Lymph % (Auto) 7.8 L, [place] % (Auto) 3.7, Eos % (Auto) 0.1, Baso % (Auto) 0.1, Absolute Neuts (auto) 11.5 H, Absolute Lymphs (auto) 1.02, Nucleated RBC % 4.5, Anisocytosis 2+, Sodium 138, Potassium 4.5, Chloride 101, Carbon Dioxide 18.4 L, Anion Gap 18 H, BUN 52 H, Creatinine 4.98 H, Estim Creat Clear Calc 9.13 L*, Est GFR (MDRD) Non-Af 9 L, BUN/Creatinine Ratio 10.4, Glucose 101 H, Calcium 7.7 Micro: Microbiology 10/29/25 11:50 Blood Culture (Wb) - Anticubital Left Blood Culture - Preliminary No growth in 48 hours. 10/29/25 12:10 Blood Culture (Wb) - Anticubital Left Blood Culture - Preliminary No growth in 48 hours. Rhythm Strip Rhythm Strip: A-fib Rate: 140 Impressions & Recommendations Patient & Family Issues discussed with the patient and family: Goals of care going forward and CODE STATUS Patient goal: Patient states that she wants to continue with her current level of medical intervention. She does want to be a DNR okay to time-limited trial on the ventilator with no trach or PEG ever. Outpatient palliative care. Family goal: Family is in agreement for outpatient palliative care and is in agreement with changing of CODE STATUS. Ethical & Legal Ethical and legal: None at this time Impressions Impressions: Patient would benefit from outpatient palliative care for symptom management and extra layer support Recommentation Palliative recommendations: Outpatient palliative care Encouter Achieved as a result of this Palliative Care Encounter: [ [id number]] minutes were spent in total for this visit which consisted, primarily of counseling and education dealing with the complex and emotionally intense issues of symptom management and palliative care in the setting of serious and potentially life-threatening illness. Review of documentation, labs and radiological studies. ?Patient/family had the opportunity to ask questions Plan (1) ESRD (end stage renal disease): (2) Sepsis: QUALIFIERS: Sepsis type: sepsis due to unspecified organism Sepsis acute organ dysfunction status: unspecified Qualified Code(s): A41.9 - Sepsis, unspecified organism (3) UTI (urinary tract infection): QUALIFIERS: Urinary tract infection type: acute cystitis Hematuria presence: without hematuria Qualified Code(s): N30.00 - Acute cystitis without hematuria (4) Weakness: (5) PAF (paroxysmal atrial fibrillation): (6) Goals of care, counseling/discussion: (7) Palliative care encounter: PLAN: Plan *Family meeting to discuss goals of cares and CODE STATUS *Discussion with Dr. Herrera about patient's 10/10 pain following dialysis *Order for fentanyl 25 mcg IV placed, per Dr. Herrera. One-time dose. Parameter of systolic greater than 105 systolic *Teaching of deep breathing exercises and repositioning *[facility] for [facility] *Changes CODE STATUS to DNR CCA with intubation
--- NOTE | 2025-11-01 13:06 | CASEMGMT ---
Addendum entered by Kimberly Chavez 11/01/25 13:15: Dr Herrera reports that DC will be canceled at this time. SW and DPA notified. Original Note: RN CM to the pt's room at this time to discuss DC planning. Pt's at the bedside and states that they prefer [facility] ([facility]) and [facility]. Pt then became restless with labored breathing. Pt's pulse ox reading displayed 70%. Pt's RN notified and now at the bedside. Dr. Herrera notified. ANIYAH/JESE to continue to follow.
[2025-11-01] MEDS: fentaNYL 100 MCG/2 ML Ampul 25 MCG IV (13:09)
--- NOTE | 2025-11-01 13:39 | CASEMGMT ---
Addendum entered by Yeimi Drake 11/01/25 14:22: [facility] has accepted. Original Note: Discharge Planning Referral sent via [facility] to [facility] and [facility]. Yeimi Drake DC Planning
--- NOTE | 2025-11-01 13:40 | RAD_ITS ---
PROCEDURE: CHEST 1 VIEW (PORTABLE) 11/01/2025 REASON FOR EXAM: SOB TECHNIQUE: Frontal view of the chest. COMPARISON: 10/29/2025 FINDINGS: Stable cardiomegaly and moderate-sized right pleural effusion. Right chest wall central venous dual lumen catheter, tip overlies SVC/right atrial junction. Hazy opacity at the right mid and lower lung field is not significantly changed. No new consolidation or pleural effusion. No pneumothorax. RAD/Chest 1 View (Portable) IMPRESSION: 1. Stable small right pleural effusion with associated atelectasis. Reading Location: [id number]
--- NOTE | 2025-11-01 14:18 | PCM.HOSP.N ---
Hospitalist Note Notified by patient's nurse regarding patient experiencing difficulty breathing. Patient had apparently received fentanyl for pain ordered by palliative care. Per nursing staff patient became diaphoretic tachypneic as well as tachycardic. Did evaluate patient. Appears to be anxious at this point. Ordered chest x-ray and ABG and 0.5 of alprazolam given. Subsequent decision to be based on results of initial workup
--- NOTE | 2025-11-01 14:49 | CASEMGMT ---
Social Work Per Tashia, Palliative [employer], Pt is agreeable to outpt Palliative services at discharge and preferred provider with [facility]. Referral sent to [facility] via secure email. SW to notify [facility] of discharge date and disposition when appropriate. SARAH Preciado
[2025-11-01 14:52] LABS: Base Excess -14 mmol/L (-2 to +2); PO2 105 mmHG (75-100); SITE R Radial; SO2 98 % (94-98)
--- NOTE | 2025-11-01 15:40 | CASEMGMT ---
The [employer] was called and pt is now . Notified the SNFs as well as [facility].
--- NOTE | 2025-11-01 15:42 | PCM.DEATH ---
Preliminary Cause of Preliminary Cause of Preliminary Cause of : - Sepsis ? Acute cystitis ? End-stage renal disease Date of Admission: 10/29/25 Date of : 11/01/25 Principle Diagnosis Problem List: Active and Suspected Problems (Updated 11/01/25 @ 13:06 by JOVANA Medina) Palliative care encounter (Acute) Goals of care, counseling/discussion (Acute) ESRD (end stage renal disease) (Acute) Sepsis (Acute) UTI (urinary tract infection) (Acute) Failure to thrive (child) (Acute) Weakness (Acute) PAF (paroxysmal atrial fibrillation) (Acute) Hospital Course 75 F who presents with multiple comorbidities including end-stage renal disease currently on hemodialysis Tuesdays and Saturdays who [facility] 2 weeks prior to her admission. Patient reports increasing fatigue since being discharged. Patient also did notice increasing bleeding from both hands. Patient is on systemic anticoagulation for paroxysmal A-fib and as per patient's patient hands and the tips of her fingers have been cracking Workup in the ED did reveal presence of acute cystitis. Patient was also found to have lactic acidosis consistent with sepsis. Patient however did not receive 30 cc/kg of IV fluid given her underlying history of end-stage renal disease. Patient did respond to treatment and plan was for patient to have been [facility] on 11/01/2025 however insurance approval had not not been obtained patient discharged was therefore canceled. Consult was placed to palliative care. Patient apparently did complain of significant left hip pain and did receive 25 mcg of fentanyl. Patient per nursing staff became diaphoretic subsequently patient was seen and examined ordered ABG as well as chest x-ray. Chest x-ray did reveal small stable right-sided pleural effusion with associated atelectasis. ABG demonstrated mixed acid base balance with pCO2 of 19. Patient was given 0.5 mg of alprazolam for hyperventilation. Patient vitals specifically blood pressure heart rate as well as respiratory rate did improve.. Patient was later found to be bradycardic with apneic breathing. Patient had changed her CODE STATUS earlier on in the day to DNR CCA but with intubation. Patient did receive single dose of atropine as well as epinephrine. Heart rate initially responded but bradycardia recurred and later patient went into asystole. Patient has been who was at the bedside asked for resuscitative effort to be discontinued. Patient was pronounced on 11/01/2025 at 1532 Assessment & Plan Assessment/Plan (1) ESRD (end stage renal disease): (2) Sepsis: QUALIFIERS: Sepsis type: sepsis due to unspecified organism Sepsis acute organ dysfunction status: unspecified Qualified Code(s): A41.9 - Sepsis, unspecified organism (3) UTI (urinary tract infection): QUALIFIERS: Urinary tract infection type: acute cystitis Hematuria presence: without hematuria Qualified Code(s): N30.00 - Acute cystitis without hematuria
--- NOTE | 2025-11-01 16:07 | CASEMGMT ---
Social Work SW responded to [employer]. SW with pt's spouse throughout [employer] and support provided. Patient passed. Spouse called family. SW remained with spouse until sons arrived and support given. Arrangements at [facility]. Nursing updated. SARAH Daugherty
--- NOTE | 2025-11-01 19:31 | NURSING ---
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
== END 2025-11-01 19:30 | DRG 871 ==
LOC: ED 13:24 → ICU 13:42
PROVIDERS: Admitting Provider Internal Medicine; Emergency Provider Emergency Medicine; PCP Family Medicine; Visit Provider Internal Medicine
DX: A41.9 Sepsis, unspecified organism (principal); N18.6 End stage renal disease; I13.2 Hypertensive heart and chronic kidney disease with heart failure and with stage 5 chronic kidney disease, or end stage renal disease; J91.8 Pleural effusion in other conditions classified elsewhere; E87.20 Acidosis, unspecified; D68.32 Hemorrhagic disorder due to extrinsic circulating anticoagulants; I24.89 Other forms of acute ischemic heart disease; I50.22 Chronic systolic (congestive) heart failure; J98.11 Atelectasis; N30.00 Acute cystitis without hematuria; E11.22 Type 2 diabetes mellitus with diabetic chronic kidney disease; E03.9 Hypothyroidism, unspecified; E66.812 Obesity, class 2; I48.0 Paroxysmal atrial fibrillation; I46.9 Cardiac arrest, cause unspecified; E78.00 Pure hypercholesterolemia, unspecified; E87.5 Hyperkalemia; E11.42 Type 2 diabetes mellitus with diabetic polyneuropathy; Z99.2 Dependence on renal dialysis; M25.551 Pain in right hip; R62.7 Adult failure to thrive; Z68.35 Body mass index [BMI] 35.0-35.9, adult; Z79.01 Long term (current) use of anticoagulants; Z51.5 Encounter for palliative care; Z66 Do not resuscitate; Z79.899 Other long term (current) drug therapy; Z79.890 Hormone replacement therapy; T45.515A Adverse effect of anticoagulants, initial encounter; R06.4 Hyperventilation
CPT/HCPCS: 36415; 36600; 71045; 80048; 81001; 82803; 83605; 83735; 84484; 85025; 87040; 90937; 93005; 97163; 97166; 97530; 99252; 99285; A4216; G0257; G0463